=== PATIENT | female | born 1935 | race Caucasian/White ===

== ENCOUNTER 2023-06-30 09:20 | Emergency (ER) | payer MEDICARE, OTHER, SELFPAY ==
[2023-06-30] VITALS (22 sets, daily range): BP systolic 164; BP diastolic 75; PULSE 49–101; RESP 18–34; O2SAT 89–100; BMI 27.8
[2023-06-30 09:35] LABS: Glucometer 107 mg/dL (74-106)
--- NOTE | 2023-06-30 09:35 | ECG_ITS ---
[facility] Test Date: 2023-06-30 Pat Name: LAVONNE VILLATORO Department: Room: - Gender: Female [employer]: : [id number] Requested By: Suhas Arizmendi Order Number: [id number] Reading MD: JUNIOR PRICE Measurements Intervals [place] Rate: 56 P: 10 MO: 164 QRS: 34 QRSD: 82 T: 60 QT: 480 QTc: 471 Interpretive Statements 1100 Sinus rhythm 8304 Long QTc interval 9150 abnormal ECG Compared to ECG 11/01/2020 08:30:32 No significant changes Electronically Signed On 07-01-2023 6:49:38 EST by JUNIOR PRICE
--- NOTE | 2023-06-30 09:35 | ED.WEAKNESS1 ---
HPI - Weakness General Chief complaint: Weakness Stated complaint: DIZZINESS Time Seen by Provider: 06/30/23 09:29 Source: patient Mode of arrival: ambulance Limitations: no limitations History of Present Illness HPI Narrative: 87-year-old female presents for body pains. It started this morning. 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 She is on prednisone for it. She gets body pains like this from time to time and it developed today. It's mostly in her legs but also in her arms. There was no trauma or unusual activity. She hasn't had a fever. Related Data Previous Rx's Medication Instructions Recorded acetaminophen 300 mg-codeine 30 mg 1 tab PO Q6H PRN pain 5 days #20 06/30/23 tablet tabs Allergies Allergy/AdvReac Type Severity Reaction Status Date / Time divalproex sodium Allergy Unknown Verified 06/30/23 09:25 [From Depakote] hydrocodone Allergy Unknown Verified 06/30/23 09:25 phenytoin [From Dilantin] Allergy Unknown Verified 06/30/23 09:25 Review of Systems ROS Narrative A ten point review of systems is negative except as noted above. Exam Narrative Exam Narrative: Nurses note and vital signs reviewed and patient is not hypoxic. General: The patient appears in no apparent respiratory distress. Skin: Warm, dry, no pallor noted. There is no rash noted. Head: Normocephalic, atraumatic Eye: Normal conjunctiva, no drainage Ears, Nose, Mouth, and Throat: oral mucosa is moist. Nares patent. Cardiovascular: Regular Rate and Rhythm Respiratory: Patient is in no distress, no accessory muscle use, lungs are clear to auscultation, no wheezing, rales or rhonchi Back: non-tender GI: cough and nontender Musculoskeletal: arms and legs are examined and there is no erythema or swelling or rash. Neurological: A&O x4, normal speech, tremorous Psychiatric: Cooperative Constitutional Vital Signs, click to edit/add: Last Vital Signs Pulse 66 06/30/23 09:25 Resp 26 H 06/30/23 09:25 BP 164/75 H 06/30/23 09:25 Pulse Ox 100 06/30/23 09:25 O2 Del Method Room Air 06/30/23 09:25 Course Vital Signs Vital signs: Vital Signs Pulse Rate 66 06/30/23 09:25 Respiratory Rate 26 H 06/30/23 09:25 Blood Pressure 164/75 H 06/30/23 09:25 Pulse Oximetry 100 06/30/23 09:25 Oxygen Delivery Method Room Air 06/30/23 09:25 Pulse Rate 66 06/30/23 09:25 Respiratory Rate 26 H 06/30/23 09:25 Blood Pressure 164/75 H 06/30/23 09:25 Pulse Oximetry 100 06/30/23 09:25 Oxygen Delivery Method Room Air 06/30/23 09:25 MDM - Weakness MDM Narrative Medical decision making narrative: the patient's workup is negative. She was given IV morphine and feels much better and is able to be discharged home. She'll follow-up with her PCP. No evidence of rhabdomyolysis or urinary tract infection. Treatment diagnosis and follow-up were discussed with the patient. Differential Diagnosis Differential diagnosis: Likely rhabdomyolysis, dehydration and other (urinary tract infection) Lab Data Attestation: I reviewed the patient's lab results. Labs: Lab Results 06/30/23 06/30/23 06/30/23 Range/Units 09:33 10:16 12:25 WBC 5.5 (4.0-11.0) 10^3/uL RBC 4.22 (4.20-5.40) 10^6/uL Hgb 13.9 (12.0-16.0) g/dL Hct 40.6 (36.0-48.0) % MCV 96.2 (81.0-99.0) fL MCH 32.9 (26.7-34.0) pg MCHC 34.2 (29.9-35.2) g/dL RDW 13.1 (11.0-15.0) % Plt Count 247 (150-450) 10^3/uL MPV 10.8 (9.5-13.5) fL Neut % (Auto) 57.3 (43.0-75.0) % Lymph % (Auto) 32.3 (20.5-60.0) % [place] % (Auto) 8.2 (1.7-12.0) % Eos % (Auto) 1.1 (0.9-7.0) % Baso % (Auto) 0.9 (0.2-2.0) % Neut # (Auto) 3.1 (1.4-6.5) 10^3/uL Lymph # (Auto) 1.8 (1.2-3.8) 10^3/uL [place] # (Auto) 0.5 (0.3-0.8) 10^3/uL Eos # (Auto) 0.1 (0.0-0.7) 10^3/uL Baso # (Auto) 0.1 (0.0-0.1) 10^3/uL Abs Immat Gran (auto) 0.01 (0.00-0.03) 10^3/uL Imm/Tot Granulo (auto) 0.2 (0.0-0.5) % Sodium 143 (136-145) mmol/L Potassium 3.2 L (3.5-5.1) mmol/L Chloride 107 (98-107) mmol/L Carbon Dioxide 24.8 (21.0-32.0) mmol/L Anion Gap 14.4 BUN 20.0 H (7.0-18.0) mg/dL Creatinine 0.88 (0.55-1.02) mg/dL Est GFR ( Amer) >60 (>=60) Est GFR (Non-Af Amer) >60 (>=60) BUN/Creatinine Ratio 22.7 Glucose 99 (74-106) mg/dL Calcium 9.7 (8.5-10.1) mg/dL Total Creatine Kinase 41 (26-192) U/L Urine Color Yellow (YELLOW) Urine Clarity Clear (CLEAR) Urine pH 8.5 (5.0-9.0) Ur Specific [place] 1.015 (1.005-1.025) Urine Protein Negative (NEG/TRACE) mg/dL Urine Glucose (UA) Negative (NEGATIVE) mg/dL Urine Ketones Negative (NEGATIVE) mg/dL Urine Occult Blood Negative (NEGATIVE) Urine Nitrite Negative (NEGATIVE) Urine Bilirubin Negative (NEGATIVE) Urine Urobilinogen 0.2 (0.2-1.0) EU/dL Ur Leukocyte Esterase Negative (NEGATIVE) Urine RBC 0-2 (0-2) #/HPF Urine WBC 0-2 A (NONE SEEN) #/HPF Ur Squamous Epith Cells None seen (NONE/RARE) #/LPF Urine Crystals None seen (None Seen) #/HPF Urine Bacteria None seen (NONE SEEN) #/HPF Urine Casts None seen (NONE SEEN) #/LPF Urine Mucus None seen (NONE SEEN) POC Glucose 107 H (74-106) mg/dL Discharge Plan Discharge Chief Complaint: Weakness Clinical Impression: Myalgia Patient Disposition: Home, Self-Care Time of Disposition Decision: 12:45 Condition: Good Mode of Transportation: Private Vehicle Prescriptions / Home Meds: New acetaminophen-codeine 300-30 mg tablet 1 tab PO Q6H PRN (Reason: pain) 5 Days Qty: 20 0RF Instructions: Musculoskeletal Pain (ED) Stand Alone Forms: Portal Instructions Referrals: Suhas Arizmendi DO [Primary Care Provider] - 1 week
[2023-06-30] MEDS: MORPHINE SULFATE 2 MG/ML SYRINGE IV (09:43)
[2023-06-30 10:30] LABS: Basophils Absolute Auto 0.1 10^3/uL (0.0-0.1); Basophils Percent Auto 0.9 % (0.2-2.0); Eosinophils Absolute Auto 0.1 10^3/uL (0.0-0.7); Eosinophils Percent Auto 1.1 % (0.9-7.0); Hematocrit 40.6 % (36.0-48.0); Hemoglobin 13.9 g/dL (12.0-16.0); Immature Granulocytes Abs Auto 0.01 10^3/uL (0.00-0.03); Immature Granulocytes Pct Auto 0.2 % (0.0-0.5); Lymphocytes Absolute Auto 1.8 10^3/uL (1.2-3.8); Lymphocytes Percent Auto 32.3 % (20.5-60.0); Mean Corpuscular HGB Conc 34.2 g/dL (29.9-35.2); Mean Corpuscular Hemoglobin 32.9 pg (26.7-34.0); Mean Corpuscular Volume 96.2 fL (81.0-99.0); Mean Platelet Volume 10.8 fL (9.5-13.5); Monocytes Absolute Auto 0.5 10^3/uL (0.3-0.8); Monocytes Percent Auto 8.2 % (1.7-12.0); Neutrophils Absolute Auto 3.1 10^3/uL (1.4-6.5); Neutrophils Percent Auto 57.3 % (43.0-75.0); Platelet Count 247 10^3/uL (150-450); Red Blood Count 4.22 10^6/uL (4.20-5.40); Red Cell Distribution Width 13.1 % (11.0-15.0); White Blood Count 5.5 10^3/uL (4.0-11.0)
[2023-06-30 10:51] LABS: Anion Gap 14.4; BUN Creatinine Ratio 22.7; Calcium 9.7 mg/dL (8.5-10.1); Carbon Dioxide 24.8 mmol/L (21.0-32.0); Chloride 107 mmol/L (98-107); Estimated GFR (African America >60 (>=60); Estimated GFR (Non-African Ame >60 (>=60); Glucose 99 mg/dL (74-106); Potassium 3.2 mmol/L (3.5-5.1); Sodium 143 mmol/L (136-145)
[2023-06-30 10:55] LABS: Creatine Kinase 41 U/L (26-192)
[2023-06-30 12:33] LABS: Bilirubin Urine NEGATIVE (NEGATIVE); Blood Urine NEGATIVE (NEGATIVE); Clarity Urine CLEAR (CLEAR); Color Urine YELLOW (YELLOW); Glucose Urine UA NEGATIVE (NEGATIVE); Ketones Urine NEGATIVE (NEGATIVE); Leukocyte Esterase Urine NEGATIVE (NEGATIVE); Nitrite Urine NEGATIVE (NEGATIVE); Protein Urine NEGATIVE (NEG/TRACE); Specific Gravity Urine 1.015 (1.005-1.025); Urobilinogen Urine 0.2 EU/dL (0.2-1.0); pH Urine 8.5 (5.0-9.0)
[2023-06-30 12:43] LABS: Bacteria Urine NONE SEEN #/HPF (NONE SEEN); Cast Seen? NONE SEEN #/LPF (NONE SEEN); Crystals Seen? None Seen #/HPF (None Seen); Mucus Urine NONE SEEN (NONE SEEN); RBC Urine 0-2 #/HPF (0-2); Squamous Epithelial Cell Urine NONE SEEN #/LPF (NONE/RARE); WBC Urine 0-2 #/HPF (NONE SEEN)
== END 2023-06-30 13:39 | disposition home or self-care (01) ==
PROVIDERS: Emergency Provider Emergency Medicine; PCP Family Medicine
DX: M79.10 Myalgia, unspecified site (principal)
CPT/HCPCS: 36415; 36416; 80048; 81001; 82550; 82948; 85025; 93005; 96374; 99284; J2270

== ENCOUNTER 2023-08-25 12:21 | Outpatient (OUT) | payer MEDICARE, OTHER, SELFPAY ==
--- NOTE | 2023-08-25 14:05 | P.CN_ITS ---
Consult Note: HPI Data of Consult Patient: new to practice Consult date: 08/25/23 Requesting Physician: Gloria Weston MD Primary Care Provider: Suhas Arizmendi DO Consult Narrative Reason for consult: neck, bilateral shoulder, low back pain Narrative: 88yof who presents for evaluation. longstanding history of neck, bilateral shoulder, low back, bilateral hip pain. diagnosed with pmr, has been on daily steroids for quite some time. states that this does help. also uses tramadol, which does not help much. no recent imaging. continues in provider directed home exercise course >6 weeks, without benefit. denies adverse med side effects. cc:: CC: Gloria Weston MD Review of Systems ROS Status of ROS 10 or more systems reviewed and unremark able except as noted in history and below Meds Home Medications and Allergies Home Medications Medication Instructions Recorded Confirmed Type acetaminophen 300 mg-codeine 30 mg 1 tab PO Q6H PRN pain 5 days #20 06/30/23 Rx tablet tabs hydrocodone 5 mg-acetaminophen 325 1 tab PO TID PRN pain #90 tabs 08/25/23 Rx mg tablet Allergies Allergy/AdvReac Type Severity Reaction Status Date / Time divalproex sodium Allergy Unknown Verified 06/30/23 09:25 [From Depakote] hydrocodone Allergy Unknown Verified 06/30/23 09:25 phenytoin [From Dilantin] Allergy Unknown Verified 06/30/23 09:25 Exam Narrative Exam Narrative: Psych-alert and oriented x 3. Attentive and appropriate, constitutionally normal, displays normal mood and affect per situation.? There are no obvious deficits in memory, reasoning, or intellect.? Skin-no obvious rashes, bruising, erythema noted to the patient's area of pain. Extremities- extremities are warm with minimal edema and palpable pulses. Lumbar-no significant tenderness to palpation noted in the lumbar spine and paraspinal musculature.? Pain is elicited with extension, and lateral rotation of the lumbar spine. Range of motion is slightly diminished with these motions due to pain. Facet loading maneuvers are positive bilaterally and do appear to be concordant with the patient's normal complaints of pain.? Coordination remains intact.? Gait remains non-antalgic. Assessment and Plan Assessment and Plan (1) Cervicalgia: (2) Lumbar spondylosis: Plan 88yof who presents for evaluation. failed conservative measures, as noted. would like to start with xr of cervical and lumbar spine, as well as bilateral shoulder and hips. she is in agreement. medications reviewed. pdmp reviewed. will trial norco 5mg tid prn. uds obtained. follow up after imaging.
== END 2023-08-25 12:22 | disposition home or self-care (01) ==
PROVIDERS: PCP Family Medicine; Visit Provider Anesthesiology
DX: M54.2 Cervicalgia (principal); M47.816 Spondylosis without myelopathy or radiculopathy, lumbar region
CPT/HCPCS: G0463

== ENCOUNTER 2023-08-29 11:12 | Outpatient (OUT) | payer MEDICARE, OTHER, SELFPAY ==
--- OUTSIDE RECORDS SUMMARY | 2023-08-29 11:19 | XMS_ITS | CCD ---
Author Organization [facility] Care Team Providers Care Principal Technical Architect Name Role Phone Suhas Garrett Unavailable Suhas Garrett Unavailable Unavailable Unavailable MAYO CARBAJAL Consulting Unavailable UGO, DR BAIRD Primary Care Unavailable WALT VELIZ Attending Unavailable WALT VELIZ Admitting Unavailable Ugo, Dr. Suhas Liang Primary Care Unavaila ble Wolf, Dr. Shy Agosto Referring Radha vailable Wolf, Dr. Shy Agosto Attending Radha vailable Wolf, Dr. Shy Agosto Attending Radha vailable Kunadan, Dr. Suhas Liang Primary Care Unavaila ble Wolf, Dr. Shy Agosto Referring Radha vailable Ugo, Dr. Suhas Liang Primary Care Unavaila ble WOLFSHY MEDEIROS Attending Unavail able Suhas Garrett DO Primary Care Provider SHY WOLF Attending Unavailable SUHAS GARRETT Primary Care Unavailable Suhas Garrett Primary Care Unavailable Suhas Garrett Attending Unavailable Suhas Garrett Admitting Unavailable Suhas Garrett Primary Care Unavailable Suhas Garrett Attending Unavailable Suhas Garrett Admitting Unavailable Trista FRIEDMAN, Gloria Gautam Attending Unavailable Allergies Allergy Classification Reported Allergen(s) Allergy Type Date of Onset Reaction(s) Facility (20 sources) Alendronate; Translations: [Fosamax] Drug Allergy 3 Unknown, Other Hospitals 3 Repository (20 sources) Amoxicillin; Translations: [amoxicillin] Drug Allergy 9 [facility] Other (20 sources) Phenytoin; Translations: [Dilantin CAPS] Drug Allergy 3 Rash [facility] Other (20 sources) Valproate; Translations: [Depakote ER TB24] Drug Allergy Unknown [facility] [employer] Other (1 source) Alendronate Drug Allergy [facility] Repository (1 source) Amoxicillin Drug Allergy [facility] Repository (1 source) Phenytoin Drug Allergy [facility] Repository (1 source) Valproate Drug Allergy [facility] Repository (20 sources) Acetaminophen / HYDROcodone Drug Allergy elevated liver enzymes [facility] [employer] Other (1 source) Alendronate Drug Allergy 3 [facility] (2 sources) HYDROcodone; Translations: [HYDROCODONE] Drug Allergy 4 [facility] Work Phone: (2 sources) Valproate; Translations: [VALPROIC ACID] Drug Allergy 3 [facility] Work Phone: (1 source) Acetaminophen Drug Allergy 4 [facility] Repository (1 source) Alendronate Drug Allergy 4 [facility] Repository (1 source) Amoxicillin Drug Allergy 4 [facility] Repository (1 source) HYDROcodone Drug Allergy 4 [facility] Repository (1 source) Phenytoin Drug Allergy 4 [facility] Repository (1 source) Valproate Drug Allergy 4 [facility] Repository Medications Current Medications Medication Drug Class(es) Dates Sig (Normalized) Sig (Original) acetaminophen 325 mg / HYDROcodone bitartrate 5 mg oral tablet (3 sources) Opioid Agonist take 1 tablet by mouth every six hours HYDROcodone-Acet aminophen 5-325 MG 1 tablet as needed Orally every 6 hrs Active amLODIPine 10 mg oral tablet (20 sources) Dihydropyridine Calcium Channel Awa Start: 06-03-2017 take 1 tablet by mouth every twenty-four hours Norvasc 10 MG 1 tablet Orally Once a day May, Active Start: 06-03-2017 take 1 tablet by barb th every twenty-four hours Norvasc 5 MG 1 tablet Orally Once a day for 90 day(s) May, Active aspirin 81 mg chewable tablet (20 sources) Platelet Aggregation Inhibitor, Nonsteroidal Anti-inflammatory Drug take 1 tablet by mouth every week Aspirin 81 MG 1 tablet Orally 3 days per week Active aspirin 81 mg EC tablet Take 1 tablet (81 mg) by mouth. 0 Active calcium carbonate 1500 mg oral tablet (8 sources) take 1 tablet by barb th once daily calcium carbonate 600 mg calcium (1,500 mg) tablet Take 1 tablet (1,500 mg) by mouth once daily. 0 Active Calcium 600 MG T ABS TAKE 1 TABLET DAILY. Quantity: 0 Refills: 0 Ordered: 13-Dec-2021 DO Active calcium carbonate 1500 mg / cholecalciferol 200 unt oral tablet (20 sources) Vitamin D take 1 tablet by barb th once daily at mealtime Calcium + D 600-200 MG-UNIT 1 tablet with food Orally Once a day for 30 day(s) Active take 1 tablet by barb th every twenty-four hours Calcium + D 600-200 MG-UNIT 1 tablet with food Orally Once a day for 30 day(s) Active carvedilol 6.25 mg oral tablet (20 sources) alpha-Adrenergic Awa, beta-Adrenergic Awa Start: 06-25-2017 take 1 tablet by mouth every twelve hours Carvedilol 6.25 MG 1 tablet with food Orally Twice a day Jun, Active Centrum (20 sources) Centrum as directed Orally Active Fish Oils (1 source) take 1 capsule by mouth once daily omega-3 (Fish Oil) 60-90-500 mg capsule Take 1 capsule (500 mg) by mouth once daily. 0 Active hydroCHLOROthiazide 12.5 mg / losartan potassium 100 mg oral tablet (20 sources) Thiazide Diuretic, Angiotensin 2 Receptor Awa Start: 04-25-2017 take 1 tablet by mouth every twenty-four hours Losartan Potassium-HCTZ 100-12.5 MG 1 tablet Orally Once a day Apr, Active ibuprofen 600 mg oral tablet (20 sources) Nonsteroidal Anti-inflammatory Drug Start: 01-09-2022 take 1 tablet by mouth twice daily at mealtime as needed Ibuprofen 600 MG 1 tablet with food or milk as needed Orally Twice a day as needed with food Jan, Active Start: 01-09-2022 take 1 tablet by barb th three times daily at mealtime as needed Ibuprofen 600 MG 1 tablet with food or milk as needed Orally TID PRN with food Jan, Not-Taking levothyroxine sodium 0.1 mg oral tablet (20 sources) l-Thyroxine Start: 06-25-2021 take 1 tablet by mouth once daily levothyroxine (Synthroid, Levoxyl) 100 mcg tablet Take 1 tablet (100 mcg) by mouth once daily. 0 06/25/2021 Active Synthroid 100 MC G 1 tablet every morning on an empty stomach Orally Once a day for 90 day(s) Active multivit-min/ferrous fumarat e (MULTI VITAMIN ORAL) (1 source) take 1 tablet by mouth once daily multivit-min/ferrous fumarate (MULTI VITAMIN ORAL) Take 1 tablet by mouth once daily. 0 Active [place] 3 1000 MG (20 sources) take 1 capsule by mouth once daily [place] 3 1000 MG 1 capsule with a meal Orally Once a day Active predniSONE 10 mg oral tablet (20 sources) Start: take 2 tablets by mouth once daily predniSONE 10 MG 2 tablets x 7 days, 1 tablet x 7 days, then 1/2 tablet or 5mg daily thereafter Orally as directed Jun, Active Start: 04-23-2023 take 1 tablet by barb th every twenty-four hours predniSONE 20 MG 1 tablet Orally Once a day for 10 days Apr, Active Start: 12-06-2022 take 1 tablet by barb th every other day predniSONE 2.5 MG 1 tablet Orally alternating every other day with 5mg 30 Nov, 2022 Active Start: 04-10-2022 take 1 tablet by barb th every twenty-four hours predniSONE 2.5 MG 1 tablet Orally Once a day Apr, Active Start: 04-10-2022 take 1 tablet by barb th every twenty-four hours predniSONE 10 MG 1 tablet Orally Once a day for 90 days Apr, Active Start: 04-10-2022 take 1 tablet by barb th every twenty-four hours predniSONE 20 MG 1 tablet Orally Once a day for 30 day(s) Apr, Active Start: 02-22-2022 predniSONE 20 MG 1 tablet with food or milk Orally 1 tab twice a day x 5 days , 1 tab every day x 5 days for 10 days Feb, Active Start: 08-05-2022 take 1 tablet by barb th at mealtime, then take 1 tablet by mouth twice daily, then take 1 tablet by mouth once daily predniSONE 20 MG 1 tablet with food or milk Orally 1 tab twice a day x 5 days , 1 tab once a day X 5 days Jan, Active Start: 11-02-2021 take 1 tablet by barb th every other day predniSONE 5 MG 1 tablet Orally alternating every other day with 2.5mg Apr, Active Start: 02-22-2020 predniSONE (De ltasone) 5 mg tablet Take 1 tablet (5 mg) by mouth once daily. Alternating 2.5 tab 0 11/02/2021 Active Start: 02-22-2020 take 1 tablet by barb th every twenty-four hours predniSONE 2.5 MG 1 tablet Orally Once a day Feb, Active Start: 02-22-2020 take 1.5 tablets by mouth every twenty-four hours predniSONE 5 MG 1.5 tablets Orally Once a day Feb, Active traMADol hydrochloride 50 mg oral tablet (5 sources) Opioid Agonist Start: 07-05-2023 take 1 tablet by mouth every eight hours traMADol HCl 50 MG 1 tablet as needed Orally tid Jun, Active Start: 07-05-2023 take 1 tablet by barb every twenty-four hours traMADol HCl 50 MG 1 tablet as needed Orally Once a day Jun, Active Tylenol Arthritis Pain 650 M G (20 sources) Tylenol Arthriti s Pain 650 MG as directed Orally Not-Taking Tylenol Arthriti s Pain 650 MG as directed Orally Active Completed/Discontinued Medications Medication Drug Class(es) Dates Sig (Normalized) Sig (Original) docosahexaenoic acid 120 mg / eicosapentaenoic acid 180 mg oral capsule (3 sources) take 1 capsule by mouth once daily [place]-3 Fish Oil 1000 MG Oral Capsule TAKE 1 CAPSULES BY MOUTH DAILY Quantity: 360 Refills: 0 Ordered: 24-Dec-2022 DO Active lidocaine 0.05 mg/mg medicated patch (9 sources) Antiarrhythmic, Amide Local Anesthetic Lidocaine 5 % 1 patch remove after 12 hours Externally Once a day Not-Taking melatonin 5 mg oral tablet (20 sources) Start: 10-01-2021 take 1 tablet by mouth every twenty-four hours Melatonin 5 MG 1 tablet in the evening Orally Once a day Sep, Not-Taking/PRN methylPREDNISolone (20 sources) Corticosteroid Start: 01-10-2014 SOLU-MEDROL 41 - 125 mg Jan, 125 mg Multi Vitamin Oral Tablet (7 sources) take 1 tablet by mouth once daily Multi Vitamin Oral Tablet TAKE 1 TABLET DAILY. Quantity: 0 Refills: 0 Ordered: 13-Dec-2021 DO Active [place] 3 500 CAPS (4 sources) [place] 3 500 CAPS TAKE 1 CAPSULE Daily Quantity: 0 Refills: 0 Ordered: 13-Dec-2021 DO Active traZODone hydrochloride 50 mg oral tablet (16 sources) Serotonin Reuptake Inhibitor Start: 07-22-2022 take 1 tablet by mouth every twenty-four hours traZODone HCl 50 MG 1 tablet at bedtime as needed Orally Once a day prn Jul, Not-Taking/PRN Problems Active Problems Problem Classification Problem Date Documented Date Episodic/Chronic Abdominal pain (20 sources) Generalized abdominal pain; Translations: [Generalized abdominal pain] Onset: 02-22-2022 Resolved: 02-22-2022 Episodic Administrative/social admission (20 sources) Advance directive discussed with patient; Translations: [Other specified counseling] Episodic Coronary atherosclerosis and other heart disease (20 sources) Coronary arteriosclerosis; 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 [place] coronary artery without angina pectoris] Chronic Disorders of lipid metabolism (20 sources) Hyperlipidemia; Translations: [Hyperlipidemia, unspecified] Onset: 04-26-2021 Resolved: 04-26-2021 Chronic Essential hypertension (20 sources) Hypertensive disorder; Translations: [Essential (primary) hypertension] Onset: 09-10-2021 Resolved: 02-14-2022 Chronic Heart valve disorders (17 sources) Aortic valve stenosis; Translations: [Aortic valve disorders] Onset: 02-26-2023 Chronic Heart valve disorders (20 sources) Heart murmur; Translations: [Cardiac murmur, unspecified] Onset: 10-01-2021 Resolved: 10-01-2021 Episodic Osteoporosis (1 source) Osteoporosis; Translations: [Age-related osteoporosis without current pathological fracture] Chronic Other aftercare (1 source) Other care home (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; Translations: [OTH LONGTERM CURRENT DRUG THERAPY] Onset: 02-22-2022 Episodic Other bone disease and musculoskeletal deformities (20 sources) Pain of left shoulder blade; Translations: [Other specified disorders of bone, shoulder] Episodic Other bone disease and musculoskeletal deformities (20 sources) Osteopenia; Translations: [Other specified disorders of bone density and structure, multiple sites] Episodic Other circulatory disease (20 sources) Cardiovascular symptoms; Translations: [Other specified symptoms and signs involving the circulatory and respiratory systems] Episodic Other circulatory disease (15 sources) Carotid bruit; Translations: [Other symptoms involving cardiovascular system] Onset: 06-04-2023 Resolved: 12-24-2022 06-04-2023 Episodic Other connective tissue disease (20 sources) Polymyalgia rheumatica; Translations: [Polymyalgia rheumatica] Onset: 06-04-2023 06-04-2023 Chronic Other connective tissue disease (20 sources) Polymyalgia rheumatica Onset: 04-26-2021 Resolved: 02-22-2022 Chronic Other connective tissue disease (1 source) Other muscle spasm; Translations: [OTHER MUSCLE SPASM] Onset: 02-22-2022 Episodic Other liver diseases (20 sources) Disease of liver; Translations: [Liver disease, unspecified] Chronic Other lower respiratory disease (20 sources) Radiologic increased density of lung; Translations: [Other disorders of lung] Episodic Other non-epithelial cancer of skin (20 sources) Basal cell carcinoma of skin; Translations: [Basal cell carcinoma of skin, unspecified] Episodic Other non-traumatic joint disorders (5 sources) Pain in left shoulder; Translations: [PAIN IN LEFT SHOULDER] Onset: 02-20-2022 Resolved: 02-22-2022 Episodic Other non-traumatic joint disorders (20 sources) Shoulder pain; Translations: [Pain in left shoulder] Episodic Other nutritional; endocrine; and metabolic disorders (7 sources) Overweight in adulthood with body mass index of 25 or more but less than 30; Translations: [Overweight] Episodic Other screening for suspected conditions (not mental disorders or infectious disease) (20 sources) Other specified abnormal findings of blood chemistry; Translations: [Elevated liver function tests] Onset: 02-26-2022 Resolved: 02-26-2022 Episodic Residual codes; unclassified (20 sources) Insomnia; Translations: [Insomnia, unspecified] Episodic Residual codes; unclassified (20 sources) Family history of malignant neoplasm of gastrointestinal tract; Translations: [Family history of malignant neoplasm of digestive organs] Episodic Residual codes; unclassified (20 sources) Difficulty sleeping ; Translations: [Sleep disorder, unspecified] Episodic Residual codes; unclassified (3 sources) Insomnia, unspecified Onset: 10-01-2021 Resolved: 10-01-2021 Episodic Residual codes; unclassified (2 sources) Never smoked any substance; Translations: [Other specified health status] Onset: 06-19-2023 06-19-2023 Episodic Residual codes; unclassified (2 sources) Other specified health status; Translations: [Other specified health status] Onset: 06-19-2023 Episodic Spondylosis; intervertebral disc disorders; other back problems (13 sources) Low back pain; Translations: [Lumbar back pain] Episodic Sprains and strains (20 sources) Strain of muscle and/or tendon of lower leg; Translations: [Strain of unspecified muscle and tendon at ankle and foot level, left foot, subsequent encounter] Episodic Thyroid disorders (20 sources) Hypothyroidism; Translations: [Hypothyroidism, unspecified] Onset: 04-26-2021 Resolved: 04-26-2021 Chronic Unclassified (1 source) Thyrotoxicosis, unspecified without thyrotoxic crisis or storm; Translations: [Thyrotoxicosis, unspecified without thyrotoxic crisis or storm] Onset: 07-08-2023 Past or Other Problems Problem Classification Problem Date Documented Da te Episodic/Chronic Conditions associated with dizziness or vertigo (1 source) Dizziness and giddiness Onset: 02-14-2022 Resolved: 02-14-2022 Episodic Other acquired deformities (1 source) Spondylolisthesis, lumbar region Onset: 02-14-2022 Resolved: 02-14-2022 Episodic Other bone disease and musculoskeletal deformities (1 source) Other specified disorders of bone density and structure, unspecified site Onset: 02-14-2022 Resolved: 02-14-2022 Episodic Other bone disease and musculoskeletal deformities (1 source) Other specified disorders of bone, shoulder Onset: 02-22-2022 Resolved: 02-22-2022 Episodic Other bone disease and musculoskeletal deformities (1 source) Other specified disorders of bone density and structure, multiple sites Onset: 02-22-2022 Resolved: 02-22-2022 Episodic Other skin disorders (1 source) Localized swelling, mass and lump, head Onset: 04-26-2021 Resolved: 04-26-2021 Episodic Residual codes; unclassified (1 source) Sleep disorder, unspecified Onset: 08-02-2021 Resolved: 08-02-2021 Episodic Residual codes; unclassified (1 source) Asymptomatic menopausal state Onset: 02-14-2022 Resolved: 02-14-2022 Episodic Unclassified (7 sources) Never smoked tobacco; Translations: [Never smoker] Unclassified (1 source) Cough R05.9 Onset: 01-11-2022 Resolved: 01-11-2022 Unclassified (3 sources) Lumbar back pain M54.50 Onset: 02-14-2022 Resolved: 02-22-2022 Unclassified (1 source) History of COVID-19 Z86.16 Onset: 02-14-2022 Resolved: 02-14-2022 Unclassified (10 sources) Lumbar back pain; Translations: [Lumbar back pain] Unclassified (1 source) Vaccine counseling Z71.85 Unclassified (1 source) Onset: 06-19-2023 06-19-2023 Viral infection (20 sources) Disease caused by 2019-nCoV; Translations: [COVID-19] Onset: 01-11-2022 Resolved: 01-11-2022 Results Test Name Value Interpretation Reference Range Facility Complete Blood Count Auto Di ffon 07-08-2023 Basophils (Bld) [#/Vol] [id number] 10*3/uL Normal 0.0-0.2 10*3/uL [employer] Other Basophils/100 WBC (Bld) 0.900 % . % [employer] Other Eosinophils (Bld) [#/Vol] [id number] 10*3/uL Normal 0.0-0.45 10*3/uL [employer] Other Eosinophils/100 WBC (Bld) 1.100 % . % [facility] Other Erythrocyte distribution width (RBC) [Ratio] 14.000 % Normal 11.9-15.3 % [facility] Other Hematocrit (Bld) [Volume fraction] 37.700 % Normal 34.0-46.4 % [facility] Other Hemoglobin (Bld) [Mass/Vol] 12.330219 g/dL Normal 11.8-15.4 g/dL [facility] Other Lymphocytes (Bld) [#/Vol] 2.047099012 10*3/uL Normal 1.00-4.8 10*3/uL [facility] Other Lymphocytes/100 WBC (Bld) 35.100 % . % [facility] Other MCH (RBC) [Entitic mass] 33.3000 pg Normal 24.7-34.3 pg [facility] Other MCV (RBC) [Entitic vol] 99.7000 fL Normal 80-100 fL [facility] Other Monocytes (Bld) [#/Vol] [id number] 10*3/uL Normal 0.0-0.8 10*3/uL [facility] Other Monocytes/100 WBC (Bld) 10.000 % . % [employer] Other Neutrophils (Bld) [#/Vol] 3.233513852 10*3/uL Normal 1.8-7.7 10*3/uL [facility] Other Neutrophils/100 WBC (Bld) 52.900 % . % [facility] Other Platelet mean volume (Bld) [Entitic vol] 9.9000 fL Normal 6.3-10.7 fL [employer] Other WBC (Bld) [#/Vol] [id number] 10*3/uL Normal 3.8 -11.6 10*3/uL [facility] Other Complete Blood Count Auto Diff 7.1 10*3/uL Normal 3.8-11.6 10*3/uL [facility] Other Complete Blood Count Auto Diff 33.4 g/dL Normal 32.0-35.0 g/dL [facility] Other Complete Blood Count Auto Diff 0.1 /100{WBC} Normal 0-0.5 /100{WBC} [facility] Other Basophils (Bld) [#/Vol] 0.1 10*3/uL Normal 0.0-0.2 [facility] Comment on above: Order Comment: Reaso n for Exam Hyperthyroidism Result Comment: PERF ORMED BY: [place] [id number] PATHOLOGIST BRAND MGR JODY SOLANO M.D. Performed By: #### M G, CBC, CRP, T4F, TSH3, ESR, URIC, CMP #### [facility] [address] [place] [address] #### AUGUST, ASO, RA #### [facility] , Basophils/100 WBC (Bld) 0.9 % Normal . [facility] Comment on above: Order Comment: Reaso n for Exam Hyperthyroidism Performed By: #### M G, CBC, CRP, T4F, TSH3, ESR, URIC, CMP #### [facility] [address] [place] [address] #### AUGUST, ASO, RA #### [facility] , Eosinophils (Bld) [#/Vol] 0.1 10*3/uL Normal 0.0-0.45 [facility] Comment on above: Order Comment: Reaso n for Exam Hyperthyroidism Performed By: #### M G, CBC, CRP, T4F, TSH3, ESR, URIC, CMP #### [facility] [address] [place] [address] [place] #### AUGUST, ASO, RA #### [facility] , Eosinophils/100 WBC (Bld) 1.1 % Normal . [facility] Comment on above: Order Comment: Reaso n for Exam Hyperthyroidism Performed By: #### M G, CBC, CRP, T4F, TSH3, ESR, URIC, CMP #### [facility] [address] [place] [address] [place] #### AUGUST, ASO, RA #### [facility] , Erythrocyte distribution width (RBC) [Ratio] 14.0 % Normal 11.9-15.3 [facility] Comment on above: Order Comment: Reaso n for Exam Hyperthyroidism Performed By: #### M G, CBC, CRP, T4F, TSH3, ESR, URIC, CMP #### [address] #### AUGUST, ASO, RA #### [facility] , Hematocrit (Bld) [Volume fraction] 37.7 % Normal 34.0-46.4 [facility] Comment on above: Order Comment: Reaso n for Exam Hyperthyroidism Performed By: #### M G, CBC, CRP, T4F, TSH3, ESR, URIC, CMP #### [address] #### AUGUST, ASO, RA #### [facility] , Hemoglobin (Bld) [Mass/Vol] 12.6 g/dL Normal 11.8-15.4 [facility] Comment on above: Order Comment: Reaso n for Exam Hyperthyroidism Performed By: #### M G, CBC, CRP, T4F, TSH3, ESR, URIC, CMP #### [address] #### AUGUST, ASO, RA #### [facility] , Lymphocytes (Bld) [#/Vol] 2.5 10*3/uL Normal 1.00-4.8 [facility] Comment on above: Order Comment: Reaso n for Exam Hyperthyroidism Performed By: #### M G, CBC, CRP, T4F, TSH3, ESR, URIC, CMP #### [place] [address] [place] #### AUGUST, ASO, RA #### [facility] , Lymphocytes/100 WBC (Bld) 35.1 % Normal . [facility] Comment on above: Order Comment: Reaso n for Exam Hyperthyroidism Performed By: #### M G, CBC, CRP, T4F, TSH3, ESR, URIC, CMP #### [address] [address] [place] #### AUGUST, ASO, RA #### [facility] , MCH (RBC) [Entitic mass] 33.3 pg Normal 24.7-34.3 [facility] Comment on above: Order Comment: Reaso n for Exam Hyperthyroidism Performed By: #### M G, CBC, CRP, T4F, TSH3, ESR, URIC, CMP #### [facility] [address] [place] [address] #### AUGUST, ASO, RA #### [facility] , MCV (RBC) [Entitic vol] 99.7 fL Normal 80-100 [facility] Comment on above: Order Comment: Reaso n for Exam Hyperthyroidism Performed By: #### M G, CBC, CRP, T4F, TSH3, ESR, URIC, CMP #### [facility] [address] [place] [address] #### AUGUST, ASO, RA #### [facility] , Mean Corpuscular HGB Conc 33.4 g/dL Normal 32.0-35.0 [facility] Comment on above: Order Comment: Reaso n for Exam Hyperthyroidism Performed By: #### M G, CBC, CRP, T4F, TSH3, ESR, URIC, CMP #### [facility] [address] [place] [address] #### AUGUST, ASO, RA #### [facility] , Monocytes (Bld) [#/Vol] 0.7 10*3/uL Normal 0.0-0.8 [facility] Comment on above: Order Comment: Reaso n for Exam Hyperthyroidism Performed By: #### M G, CBC, CRP, T4F, TSH3, ESR, URIC, CMP #### [facility] [address] [place] [address] [place] #### AUGUST, ASO, RA #### [facility] , Monocytes/100 WBC (Bld) 10.0 % Normal . [facility] Comment on above: Order Comment: Reaso n for Exam Hyperthyroidism Performed By: #### M G, CBC, CRP, T4F, TSH3, ESR, URIC, CMP #### [facility] [address] [place] [address] [place] #### AUGUST, ASO, RA #### [facility] , Neutrophils (Bld) [#/Vol] 3.7 10*3/uL Normal 1.8-7.7 [facility] Comment on above: Order Comment: Reaso n for Exam Hyperthyroidism Performed By: #### M G, CBC, CRP, T4F, TSH3, ESR, URIC, CMP #### [facility] [address] [place] [address] #### AUGUST, ASO, RA #### [facility] , Neutrophils/100 WBC (Bld) 52.9 % Normal . [facility] Comment on above: Order Comment: Reaso n for Exam Hyperthyroidism Performed By: #### M G, CBC, CRP, T4F, TSH3, ESR, URIC, CMP #### [facility] [address] [place] [address] #### AUGUST, ASO, RA #### [facility] , NRBC% 0.1 /100{WBC} Normal 0-0.5 [facility] Comment on above: Order Comment: Reaso n for Exam Hyperthyroidism Performed By: #### M G, CBC, CRP, T4F, TSH3, ESR, URIC, CMP #### [facility] [address] [place] [address] [place] #### AUGUST, ASO, RA #### [facility] , Platelet mean volume (Bld) [Entitic vol] 9.9 fL Normal 6.3-10.7 [facility] Comment on above: Order Comment: Reaso n for Exam Hyperthyroidism Performed By: #### M G, CBC, CRP, T4F, TSH3, ESR, URIC, CMP #### [facility] [address] [place] [address] [place] #### AUGUST, ASO, RA #### [facility] , Platelets (Bld) [#/Vol] 224 10*3/uL Normal 150-450 [facility] Other Comment on above: Order Comment: Reaso n for Exam Hyperthyroidism Performed By: #### M G, CBC, CRP, T4F, TSH3, ESR, URIC, CMP #### [facility] [address] [place] [address] [place] #### AUGUST, ASO, RA #### [facility] , RBC (Bld) [#/Vol] 3.78 10*6/uL Normal 3.60-5.00 [employer] Other Comment on above: Order Comment: Reaso n for Exam Hyperthyroidism Performed By: #### M G, CBC, CRP, T4F, TSH3, ESR, URIC, CMP #### [place] [address] [place] #### AUGUST, ASO, RA #### [facility] , WBC (Bld) [#/Vol] 7.1 10*3/uL Normal 3.8-11.6 [facility] Comment on above: Order Comment: Reaso n for Exam Hyperthyroidism Performed By: #### M G, CBC, CRP, T4F, TSH3, ESR, URIC, CMP #### [facility] [address] [place] [address] [place] #### AUGUST, ASO, RA #### [facility] , Comprehensive Metabolic Pane nory 07-08-2023 Albumin [Mass/Vol] 3.146681 g/dL Normal 3.5-5.7 g/dL N [employer] Other Bilirubin [Mass/Vol] 0.5706925 mg/dL Normal 0.3- 1.0 mg/dL [employer] Other Calcium [Mass/Vol] 9.2656128 mg/dL Normal 8.6-10 .3 mg/dL [employer] Other CO2 [Moles/Vol] 30.12612132 mmol/L Normal 21.0-3 1.0 mmol/L [employer] Other Creatinine [Mass/Vol] 0.78842109 mg/dL Normal 0. 60-1.20 mg/dL [employer] Other Potassium [Moles/Vol] 3.43620180 mmol/L Normal 3 .5-5.1 mmol/L [employer] Other Protein [Mass/Vol] 6.052400 g/dL Low 6.4-8.9 g/dL N [employer] Other Comprehensive Metabolic Panel 2.2 g/dL [employer] Other Albumin [Mass/Vol] 3.8 g/dL Normal 3.5-5.7 [facility] Comment on above: Order Comment: Reaso n for Exam Hyperthyroidism Performed By: #### M G, CBC, CRP, T4F, TSH3, ESR, URIC, CMP #### [facility] [address] [place] [address] [place] #### AUGUST, ASO, RA #### [facility] , Albumin/Globulin [Mass ratio] 1.7 {ratio} Normal [employer] Other Comment on above: Order Comment: Reaso n for Exam Hyperthyroidism Performed By: #### M G, CBC, CRP, T4F, TSH3, ESR, URIC, CMP #### [facility] [address] [place] [address] [place] #### AUGUST, ASO, RA #### [facility] , ALP [Catalytic activity/Vol] 140 U/L High 34-104 [employer] Other Comment on above: Order Comment: Reaso n for Exam Hyperthyroidism Performed By: #### M G, CBC, CRP, T4F, TSH3, ESR, URIC, CMP #### [facility] [address] [place] [address] [place] #### AUGUST, ASO, RA #### [facility] , ALT [Catalytic activity/Vol] 71 U/L High 7-52 [facility] [employer] Other Comment on above: Order Comment: Reaso n for Exam Hyperthyroidism Performed By: #### M G, CBC, CRP, T4F, TSH3, ESR, URIC, CMP #### [facility] [address] [place] [address] [place] #### AUGUST, ASO, RA #### [facility] , Anion gap [Moles/Vol] 9.0 mmol/L Normal 6.0-15.0 [facility] Comment on above: Order Comment: Reaso n for Exam Hyperthyroidism Performed By: #### M G, CBC, CRP, T4F, TSH3, ESR, URIC, CMP #### [facility] [address] [place] [address] #### AUGUST, ASO, RA #### [facility] , AST [Catalytic activity/Vol] 20 U/L Normal 13-39 [facility] [employer] Other Comment on above: Order Comment: Reaso n for Exam Hyperthyroidism Performed By: #### M G, CBC, CRP, T4F, TSH3, ESR, URIC, CMP #### [facility] [address] [place] [address] #### AUGUST, ASO, RA #### [facility] , Bilirubin [Mass/Vol] 0.7 mg/dL Normal 0.3-1.0 [facility] Comment on above: Order Comment: Reaso n for Exam Hyperthyroidism Performed By: #### M G, CBC, CRP, T4F, TSH3, ESR, URIC, CMP #### [facility] [address] [place] [address] [place] #### AUGUST, ASO, RA #### [facility] , Calcium [Mass/Vol] 9.4 mg/dL Normal 8.6-10.3 [facility] Comment on above: Order Comment: Reaso n for Exam Hyperthyroidism Performed By: #### M G, CBC, CRP, T4F, TSH3, ESR, URIC, CMP #### [facility] [address] [place] [address] [place] #### AUGUST, ASO, RA #### [facility] , Chloride [Moles/Vol] 107 mmol/L Normal 98-107 [facility] [employer] Other Comment on above: Order Comment: Reaso n for Exam Hyperthyroidism Performed By: #### M G, CBC, CRP, T4F, TSH3, ESR, URIC, CMP #### [facility] [address] [place] [address] [place] #### AUGUST, ASO, RA #### [facility] , CO2 [Moles/Vol] 30.7 mmol/L Normal 21.0-31.0 [facility] Comment on above: Order Comment: Reaso n for Exam Hyperthyroidism Performed By: #### M G, CBC, CRP, T4F, TSH3, ESR, URIC, CMP #### [facility] [address] [place] [address] [place] #### AUGUST, ASO, RA #### [facility] , Creatinine [Mass/Vol] 0.76 mg/dL Normal 0.60-1.20 [facility] Comment on above: Order Comment: Reaso n for Exam Hyperthyroidism Performed By: #### M G, CBC, CRP, T4F, TSH3, ESR, URIC, CMP #### [facility] [address] [place] [address] [place] #### AUGUST, ASO, RA #### [facility] , GFR/1.73 sq M.predicted MDRD (S/P/Bld) [Vol rate/Area] mL/min/{1.73_m2} Normal [facility] [employer] Other Comment on above: Order Comment: Reaso n for Exam Hyperthyroidism Performed By: #### M G, CBC, CRP, T4F, TSH3, ESR, URIC, CMP #### [facility] [address] [place] [address] [place] #### AUGUST, ASO, RA #### [facility] , Globulin (S) [Mass/Vol] 2.2 g/dL Normal [facility] Comment on above: Order Comment: Reaso n for Exam Hyperthyroidism Performed By: #### M G, CBC, CRP, T4F, TSH3, ESR, URIC, CMP #### [facility] [address] [place] [address] #### AUGUST, ASO, RA #### [facility] , Glucose [Mass/Vol] 89 mg/dL Normal 70-100 [employer] Other Comment on above: Order Comment: Reaso n for Exam Hyperthyroidism Result Comment: [facility] Glucose Reference Range is dependent on time and content of last meal. Glucose of more than 200 mg/dL in a nonstressed, ambulatory subject supports the diagnosis of Diabetes Mellitus. ADA recommended reference range Performed By: #### M G, CBC, CRP, T4F, TSH3, ESR, URIC, CMP #### [place] [address] [place] #### AUGUST, ASO, RA #### [facility] , Potassium [Moles/Vol] 3.7 mmol/L Normal 3.5-5.1 [facility] Comment on above: Order Comment: Reaso n for Exam Hyperthyroidism Performed By: #### M G, CBC, CRP, T4F, TSH3, ESR, URIC, CMP #### [facility] [address] [place] [address] [place] #### AUGUST, ASO, RA #### [facility] , Protein [Mass/Vol] 6.0 g/dL Low 6.4-8.9 [facility] Comment on above: Order Comment: Reaso n for Exam Hyperthyroidism Performed By: #### M G, CBC, CRP, T4F, TSH3, ESR, URIC, CMP #### [place] [address] [place] #### AUGUST, ASO, RA #### [facility] , Sodium [Moles/Vol] 143 mmol/L Normal 136-145 [facility] [employer] Other Comment on above: Order Comment: Reaso n for Exam Hyperthyroidism Performed By: #### M G, CBC, CRP, T4F, TSH3, ESR, URIC, CMP #### [facility] [address] [place] [address] [place] #### AUGUST, ASO, RA #### [facility] , Urea nitrogen [Mass/Vol] 21 mg/dL Normal 7-25 [facility] [employer] Other Comment on above: Order Comment: Reaso n for Exam Hyperthyroidism Performed By: #### M G, CBC, CRP, T4F, TSH3, ESR, URIC, CMP #### [facility] [address] [place] [address] [place] #### AUGUST, ASO, RA #### [facility] , Free T4 (Free Thyroxine)on 0 07-08-2023 Free T4 [Mass/Vol] 1.25082049 ng/dL High 0.61- 1.12 ng/dL [facility] [employer] Other Free T4 [Mass/Vol] 1.46 ng/dL High 0.61-1.12 [facility] Comment on above: Order Comment: Reaso n for Exam Hyperthyroidism Performed By: #### M G, CBC, CRP, T4F, TSH3, ESR, URIC, CMP #### [facility] [address] [place] [address] [place] #### AUGUST, ASO, RA #### [facility] , Thyroid Antibodies TPO+Tg Ab on 07-08-2023 Thyroid Antibodies TPO+Tg Ab 11 0-34 [facility] [employer] Other Thyroid Antibodies TPO+Tg Ab <1.0 0.0-0.9 [employer] Other Antithyroglobulin Ab <1.0 Normal 0.0-0.9 [facility] Comment on above: Order Comment: Reaso n for Exam Hyperthyroidism Result Comment: Thyr oglobulin Antibody measured by [employer] Performed at: [facility] [id number] [employer] Contractor: Antonino Belle PhD, Phone: [phone] PERFORMED BY: [place] [address] PATHOLOGIST BRAND MGR JODY SOLANO M.D. Performed By: #### M G, CBC, CRP, T4F, TSH3, ESR, URIC, CMP #### [place] [address] [place] #### AUGUST, ASO, RA #### [facility] , Thyroid Peroxidase Antibodies 11 Normal 0-34 [facility] Comment on above: Order Comment: Reaso n for Exam Hyperthyroidism Performed By: #### M G, CBC, CRP, T4F, TSH3, ESR, URIC, CMP #### [address] #### AUGUST, ASO, RA #### [facility] , Thyroid Stimulating Hormoneo n 07-08-2023 TSH Qn 2.84707169909 m[IU]/L Normal 0.45-5.33 u[iU]/mL [employer] Other TSH Qn 2.42 m[IU]/L Normal 0.45-5.33 [facility] Comment on above: Order Comment: Reaso n for Exam Hyperthyroidism Result Comment: PERF ORMED BY: [place] [address] PATHOLOGIST BRAND MGR JODY SOLANO M.D. Performed By: #### M G, CBC, CRP, T4F, TSH3, ESR, URIC, CMP #### [place] [address] [place] #### AUGUST, ASO, RA #### [facility] , AUGUST Antinuclear Antibodieson 07-04-2023 Antinuclear Abs, IFA Positive Critically abnormal . [facility] Comment on above: Result Comment: Nega tive <1:80 Borderline 1:80 Positive >1:80 Speckled cytoplasmic fluorescence is present. The antibodies noted in this pattern may be associated with, but not restricted to, primary biliary cirrhosis (PBC), polymyositis and dermatomyositis (PM/DM), and/or systemic lupus erythematosus (SLE). Performed By: #### M G, CBC, CRP, T4F, TSH3, ESR, URIC, CMP #### [facility] [address] #### AUGUST, ASO, RA #### [facility] , Homogeneous Pattern 1:160 High . [facility] Comment on above: Result Comment: ICAP nomenclature: [id number] Performed By: #### M G, CBC, CRP, T4F, TSH3, ESR, URIC, CMP #### [facility] [address] #### AUGSUT, ASO, RA #### [facility] , Note 1 Normal . [facility] Comment on above: Result Comment: Lucita marshall Potential Disease Association Homogeneous Systemic Lupus Erythematosus, Drug Induced Systemic Lupus Erythematosus, Chronic Autoimmune hepatitis, Juvenile Idiopathic Arthritis Speckled Sjogren Syndrome, Systemic Lupus Erythematosus, Subacute Cutaneous Lupus, Lupus, Congenital Heart Block, Mixed Connective Tissue Disease, Scleroderma-diffuse, Scleroderma-Autoimmune Myositis Overlap Syndrome, Systemic Lupus Vxneahzyuhlhb-Tjfqkcaadhi-Prnqvkrkyb Myositis Overlap Syndrome, Systemic Autoimmune Rheumatic Disease, Undifferentiated Connective Tissue Disease Nucleolar Systemic Sclerosis, Scleroderma-Autoimmune Myositis Overlap Syndrome, Sjogren Syndrome, Raynaud phenomenon, Pulmonary Arterial Hypertension, Systemic Autoimmune Rheumatic Disease, Cancer Centromere Scleroderma-CREST, Limited Cutaneous SSc, Raynaud's Phenomenon, Primary Biliary Cholangitis Nuclear Dot Primary Biliary Cholangitis Nuclear Primary Biliary Cholangitis, Autoimmune Membrane Hepatitis/Liver disease, Systemic Autoimmune Rheumatic Disease, Autoimmune Cytopenias, Linear Scleroderma, Antiphospholipid Syndrome Performed at: [facility] [id number] [employer] Contractor: Antonino Belle PhD, Phone: [phone] Performed By: #### M G, CBC, CRP, T4F, TSH3, ESR, URIC, CMP #### [address] #### AUGUST, ASO, RA #### [facility] , Anti-Streptolysin O Antibody on 07-04-2023 Anti-Streptolysin O Antibody <20.0 Normal 0.0-200.0 [facility] Comment on above: Result Comment: Perf ormed at: [facility] [id number] [employer] Contractor: Antonino Belle PhD, Phone: [phone] PERFORMED BY: [place] [address] PATHOLOGIST BRAND MGR JODY SOLANO M.D. Performed By: #### M G, CBC, CRP, T4F, TSH3, ESR, URIC, CMP #### [address] #### AUGUST, ASO, RA #### [facility] , C-Reactive Proteinon 024 C-Reactive Protein 0.5 mg/dL Normal 0.0-0.5 [facility] Comment on above: Performed By: #### M G, CBC, CRP, T4F, TSH3, ESR, URIC, CMP #### [address] #### AUGUST, ASO, RA #### [facility] , Complete Blood Count Auto Di ffon 07-04-2023 Basophils (Bld) [#/Vol] 0.0 10*3/uL Normal 0.0-0.2 [facility] Comment on above: Performed By: #### M G, CBC, CRP, T4F, TSH3, ESR, URIC, CMP #### [address] #### AUGUST, ASO, RA #### [facility] , Basophils/100 WBC (Bld) 0.6 % Normal . [facility] Comment on above: Performed By: #### M G, CBC, CRP, T4F, TSH3, ESR, URIC, CMP #### [facility] [address] [place] [address] [place] #### AUGUST, ASO, RA #### [facility] , Eosinophils (Bld) [#/Vol] 0.1 10*3/uL Normal 0.0-0.45 [facility] Comment on above: Performed By: #### M G, CBC, CRP, T4F, TSH3, ESR, URIC, CMP #### [address] #### AUGUST, ASO, RA #### [facility] , Eosinophils/100 WBC (Bld) 0.7 % Normal . [facility] Comment on above: Performed By: #### M G, CBC, CRP, T4F, TSH3, ESR, URIC, CMP #### [place] [address] [place] #### AUGUST, ASO, RA #### [facility] , Erythrocyte distribution width (RBC) [Ratio] 14.1 % Normal 11.9-15.3 [facility] Comment on above: Performed By: #### M G, CBC, CRP, T4F, TSH3, ESR, URIC, CMP #### [address] #### AUGUST, ASO, RA #### [facility] , Hematocrit (Bld) [Volume fraction] 38.8 % Normal 34.0-46.4 [facility] Comment on above: Performed By: #### M G, CBC, CRP, T4F, TSH3, ESR, URIC, CMP #### [address] #### AUGUST, ASO, RA #### [facility] , Hemoglobin (Bld) [Mass/Vol] 13.4 g/dL Normal 11.8-15.4 [facility] Comment on above: Performed By: #### M G, CBC, CRP, T4F, TSH3, ESR, URIC, CMP #### [place] [address] [place] #### AUGUST, ASO, RA #### [facility] , Lymphocytes (Bld) [#/Vol] 1.0 10*3/uL Normal 1.00-4.8 [facility] Comment on above: Performed By: #### M G, CBC, CRP, T4F, TSH3, ESR, URIC, CMP #### [address] #### AUGUST, ASO, RA #### [facility] , Lymphocytes/100 WBC (Bld) 13.9 % Normal . [facility] Comment on above: Performed By: #### M G, CBC, CRP, T4F, TSH3, ESR, URIC, CMP #### [facility] [address] [place] [address] [place] #### AUGUST, ASO, RA #### [facility] , MCH (RBC) [Entitic mass] 33.9 pg Normal 24.7-34.3 [facility] Comment on above: Performed By: #### M G, CBC, CRP, T4F, TSH3, ESR, URIC, CMP #### [address] #### AUGUST, ASO, RA #### [facility] , MCV (RBC) [Entitic vol] 98.3 fL Normal 80-100 [facility] Comment on above: Performed By: #### M G, CBC, CRP, T4F, TSH3, ESR, URIC, CMP #### [address] #### AUGUST, ASO, RA #### [facility] , Mean Corpuscular HGB Conc 34.4 g/dL Normal 32.0-35.0 [facility] Comment on above: Performed By: #### M G, CBC, CRP, T4F, TSH3, ESR, URIC, CMP #### [place] [address] [place] #### AUGUST, ASO, RA #### [facility] , Monocytes (Bld) [#/Vol] 0.4 10*3/uL Normal 0.0-0.8 [facility] Comment on above: Performed By: #### M G, CBC, CRP, T4F, TSH3, ESR, URIC, CMP #### [address] [place] [address] [place] #### AUGUST, ASO, RA #### [facility] , Monocytes/100 WBC (Bld) 5.4 % Normal . [facility] Comment on above: Performed By: #### M G, CBC, CRP, T4F, TSH3, ESR, URIC, CMP #### [facility] [address] [place] [address] [place] #### AUGUST, ASO, RA #### [facility] , Neutrophils (Bld) [#/Vol] 5.8 10*3/uL Normal 1.8-7.7 [facility] Comment on above: Performed By: #### M G, CBC, CRP, T4F, TSH3, ESR, URIC, CMP #### [address] #### AUGUST, ASO, RA #### [facility] , Neutrophils/100 WBC (Bld) 79.4 % Normal . [facility] Comment on above: Performed By: #### M G, CBC, CRP, T4F, TSH3, ESR, URIC, CMP #### [facility] [address] [place] [address] [place] #### AUGUST, ASO, RA #### [facility] , NRBC% 0.0 /100{WBC} Normal 0-0.5 [facility] Comment on above: Performed By: #### M G, CBC, CRP, T4F, TSH3, ESR, URIC, CMP #### [place] [address] [place] #### AUGUST, ASO, RA #### [facility] , Platelet mean volume (Bld) [Entitic vol] 9.6 fL Normal 6.3-10.7 [facility] Comment on above: Performed By: #### M G, CBC, CRP, T4F, TSH3, ESR, URIC, CMP #### [facility] [address] [place] [address] [place] #### AUGUST, ASO, RA #### [facility] , Platelets (Bld) [#/Vol] 211 10*3/uL Normal 150-450 [facility] Comment on above: Performed By: #### M G, CBC, CRP, T4F, TSH3, ESR, URIC, CMP #### [facility] [address] [place] [address] [place] #### AUGUST, ASO, RA #### [facility] , RBC (Bld) [#/Vol] 3.95 10*6/uL Normal 3.60-5.00 [facility] Comment on above: Performed By: #### M G, CBC, CRP, T4F, TSH3, ESR, URIC, CMP #### [facility] [address] [place] [address] #### AUGUST, ASO, RA #### [facility] , WBC (Bld) [#/Vol] 7.3 10*3/uL Normal 3.8-11.6 [facility] Comment on above: Performed By: #### M G, CBC, CRP, T4F, TSH3, ESR, URIC, CMP #### [facility] [address] [place] [address] [place] #### AUGUST, ASO, RA #### [facility] , Comprehensive Metabolic Pane nory 07-04-2023 Albumin [Mass/Vol] 4.2 g/dL Normal 3.5-5.7 [facility] Comment on above: Performed By: #### M G, CBC, CRP, T4F, TSH3, ESR, URIC, CMP #### [facility] [address] [place] [address] [place] #### AUGUST, ASO, RA #### [facility] , Albumin/Globulin [Mass ratio] 1.8 {ratio} Normal [facility] Comment on above: Performed By: #### M G, CBC, CRP, T4F, TSH3, ESR, URIC, CMP #### [facility] [address] [place] [address] #### AUGUST, ASO, RA #### [facility] , ALP [Catalytic activity/Vol] 220 U/L High 34-104 [facility] Comment on above: Performed By: #### M G, CBC, CRP, T4F, TSH3, ESR, URIC, CMP #### [facility] [address] [place] [address] [place] #### AUGUST, ASO, RA #### [facility] , ALT [Catalytic activity/Vol] 181 U/L High 7-52 [facility] Comment on above: Performed By: #### M G, CBC, CRP, T4F, TSH3, ESR, URIC, CMP #### [facility] [address] [place] [address] #### AUGUST, ASO, RA #### [facility] , Anion gap [Moles/Vol] 11.0 mmol/L Normal 6.0-15.0 [facility] Comment on above: Performed By: #### M G, CBC, CRP, T4F, TSH3, ESR, URIC, CMP #### [facility] [address] [place] [address] [place] #### AUGUST, ASO, RA #### [facility] , AST [Catalytic activity/Vol] 56 U/L High 13-39 [facility] Comment on above: Performed By: #### M G, CBC, CRP, T4F, TSH3, ESR, URIC, CMP #### [facility] [address] [place] [address] [place] #### AUGUST, ASO, RA #### [facility] , Bilirubin [Mass/Vol] 1.2 mg/dL High 0.3-1.0 [facility] Comment on above: Performed By: #### M G, CBC, CRP, T4F, TSH3, ESR, URIC, CMP #### [facility] [address] [place] [address] [place] #### AUGUST, ASO, RA #### [facility] , Calcium [Mass/Vol] 10.0 mg/dL Normal 8.6-10.3 [facility] Comment on above: Performed By: #### M G, CBC, CRP, T4F, TSH3, ESR, URIC, CMP #### [facility] [address] [place] [address] [place] #### AUGUST, ASO, RA #### [facility] , Chloride [Moles/Vol] 105 mmol/L Normal 98-107 [facility] Comment on above: Performed By: #### M G, CBC, CRP, T4F, TSH3, ESR, URIC, CMP #### [facility] [address] [place] [address] #### AUGUST, ASO, RA #### [facility] , CO2 [Moles/Vol] 29.8 mmol/L Normal 21.0-31.0 [facility] Comment on above: Performed By: #### M G, CBC, CRP, T4F, TSH3, ESR, URIC, CMP #### [address] #### AUGUST, ASO, RA #### [facility] , Creatinine [Mass/Vol] 0.68 mg/dL Normal 0.60-1.20 [facility] Comment on above: Performed By: #### M G, CBC, CRP, T4F, TSH3, ESR, URIC, CMP #### [facility] [address] [place] [address] [place] #### AUGUST, ASO, RA #### [facility] , GFR/1.73 sq M.predicted MDRD (S/P/Bld) [Vol rate/Area] mL/min/{1.73_m2} Normal [facility] Comment on above: Performed By: #### M G, CBC, CRP, T4F, TSH3, ESR, URIC, CMP #### [facility] [address] [place] [address] [place] #### AUGUST, ASO, RA #### [facility] , Globulin (S) [Mass/Vol] 2.4 g/dL Normal [facility] Comment on above: Performed By: #### M G, CBC, CRP, T4F, TSH3, ESR, URIC, CMP #### [facility] [address] [place] [address] [place] #### AUGUST, ASO, RA #### [facility] , Glucose [Mass/Vol] 97 mg/dL Normal 70-100 [facility] Comment on above: Result Comment: [facility] Glucose Reference Range is dependent on time and content of last meal. Glucose of more than 200 mg/dL in a nonstressed, ambulatory subject supports the diagnosis of Diabetes Mellitus. ADA recommended reference range Performed By: #### M G, CBC, CRP, T4F, TSH3, ESR, URIC, CMP #### [facility] [address] [place] [address] [place] #### AUGUST, ASO, RA #### [facility] , Potassium [Moles/Vol] 3.8 mmol/L Normal 3.5-5.1 [facility] Comment on above: Performed By: #### M G, CBC, CRP, T4F, TSH3, ESR, URIC, CMP #### [place] [address] [place] #### AUGUST, ASO, RA #### [facility] , Protein [Mass/Vol] 6.6 g/dL Normal 6.4-8.9 [facility] Comment on above: Performed By: #### M G, CBC, CRP, T4F, TSH3, ESR, URIC, CMP #### [facility] [address] [place] [address] [place] #### AUGUST, ASO, RA #### [facility] , Sodium [Moles/Vol] 142 mmol/L Normal 136-145 [facility] Comment on above: Performed By: #### M G, CBC, CRP, T4F, TSH3, ESR, URIC, CMP #### [facility] [address] [place] [address] [place] #### AUGUST, ASO, RA #### [facility] , Urea nitrogen [Mass/Vol] 19 mg/dL Normal 7-25 [facility] Comment on above: Performed By: #### M G, CBC, CRP, T4F, TSH3, ESR, URIC, CMP #### [facility] [address] [place] [address] #### AUGUST, ASO, RA #### [facility] , Erythrocyte Sedimentation Ra amy 07-04-2023 ESR (Bld) [Velocity] 19 mm/h Normal 0-29 [facility] Comment on above: Result Comment: PERF ORMED BY: [place] [address] PATHOLOGIST BRAND MGR JODY SOLANO M.D. Performed By: #### M G, CBC, CRP, T4F, TSH3, ESR, URIC, CMP #### [address] #### AUGUST, ASO, RA #### [facility] , Free T4 (Free Thyroxine)on 0 07-04-2023 Free T4 [Mass/Vol] 4.05 ng/dL High 0.61-1.12 [facility] Comment on above: Performed By: #### M G, CBC, CRP, T4F, TSH3, ESR, URIC, CMP #### [facility] [address] [place] [address] [place] #### AUGUST, ASO, RA #### [facility] , Magnesiumon 07-04-2023 Magnesium [Mass/Vol] 2.0 mg/dL Normal 1.9-2.7 [facility] Comment on above: Performed By: #### M G, CBC, CRP, T4F, TSH3, ESR, URIC, CMP #### [facility] [address] [place] [address] [place] #### AUGUST, ASO, RA #### [facility] , Rheumatoid Factoron 07-04-19 Rheumatoid Factor 15.3 High <14.0 [facility] Comment on above: Result Comment: Perf ormed at: [facility] [id number] [employer] Contractor: Antonino Belle PhD, Phone: [phone] Performed By: #### M G, CBC, CRP, T4F, TSH3, ESR, URIC, CMP #### [facility] [address] [place] [address] #### AUGUST, ASO, RA #### [facility] , Thyroid Stimulating Hormoneo n 07-04-2023 TSH Qn 1.35 m[IU]/L Normal 0.45-5.33 [facility] Comment on above: Result Comment: PERF ORMED BY: [place] [address] PATHOLOGIST BRAND MGR JODY SOLANO M.D. Performed By: #### M G, CBC, CRP, T4F, TSH3, ESR, URIC, CMP #### [facility] [address] [place] [address] #### AUGUST, ASO, RA #### [facility] , Uric Acidon 07-04-2023 Urate [Mass/Vol] 4.0 mg/dL Normal 2.3-6.6 [facility] Comment on above: Performed By: #### M G, CBC, CRP, T4F, TSH3, ESR, URIC, CMP #### [facility] [address] [place], [place] [address] #### AUGUST, ASO, RA #### [facility] , Echocardiogramon 02-26-[address], [address] [address] TRANSTHORACIC ECHOCARDIOGRAM REPORT Patient Name: LAVONNE Bahena Physician: [id number] Shy Wolf MD, [facility] Study Date: 02/26/2023 Referring SHY WOLF Physician: MRN/PID: [id number] PCP: Suhas Garrett MD Accession/Order#: [id number] [facility] Location: Date of : 1935 Fellow: Gender: F Nurse: Admit Date: Correctional Probation Officer: Sheridan Lemus RDCS, RVT Height: 157.48 cm CC Report to: Weight: 67.13 kg Study Type: Echocardiogram BSA: 1.68 m2 Blood Pressure: 122 /76 mmHg Diagnosis/ICD: I35.0-Nonrheumatic aortic (valve) stenosis; R01.1-Cardiac murmur, unspecified Indication: HTN, Hyperlipidemia, Overweight, Hypothyroid, Polymyalgia Rheumatica Procedure/CPT: Echo Complete w Full [id number] Study Detail: The following Echo studies were performed: 2D, M-Mode, Doppler and color flow. PHYSICIAN INTERPRETATION: Left Ventricle: Left ventricular systolic function is normal, with an estimated ejection fraction of 70%. There are no regional wall motion abnormalities. The left ventricular cavity size is normal. Spectral Doppler shows an impaired relaxation pattern of left ventricular diastolic filling. Left Atrium: The left atrium is normal in size. Right Ventricle: The right ventricle is normal in size. There is normal right ventricular global systolic function. Right Atrium: The right atrium is normal in size. Aortic Valve: The aortic valve is trileaflet. There is no evidence of aortic valve regurgitation. The peak instantaneous gradient of the aortic valve is 56.0 mmHg. The mean gradient of the aortic valve is 26.0 mmHg. Peak velocity across the aortic valve measured 374 cm/s corresponding to a peak pressure gradient 56 mmHg and mean pressure gradient 26 mmHg. Using the continuity equation the aortic valve area measured 0.76 cm??? consistent with severe stenosis. Mitral Valve: The mitral valve is mildly thickened. There is trace mitral valve regurgitation. Tricuspid Valve: The tricuspid valve is structurally normal. There is trace tricuspid regurgitation. Calculated RVSP 41 mmHg consistent with mild pulmonary hypertension. Pulmonic Valve: The pulmonic valve is structurally normal. There is trace to mild pulmonic valve regurgitation. Pericardium: There is no pericardial effusion noted. Aorta: The aortic root is normal. Systemic Veins: The inferior vena cava appears to be of normal size. In comparison to the previous echocardiogram(s): When compared to a study from 02/21/2022, the velocity across the aortic valve has increased from 336 cm/s up to 374 cm/s and aortic valve area has dropped from 1.0 to 0.76 cm???. CONCLUSIONS: 1. Left ventricular systolic function is normal with a 70% estimated ejection fraction. 2. Spectral Doppler shows an impaired relaxation pattern of left ventricular diastolic filling. 3. Calculated RVSP 41 mmHg consistent with mild pulmonary hypertension. 4. Peak velocity across the aortic valve measured 374 cm/s corresponding to a peak pressure gradient 56 mmHg and mean pressure gradient 26 mmHg. Using the continuity equation the aortic valve area measured 0.76 cm??? consistent with severe stenosis. 5. When compared to a study from 02/21/2022, the velocity across the aortic valve has increased from 336 cm/s up to 374 cm/s and aortic valve area has dropped from 1.0 to 0.76 cm???. QUANTITATIVE DATA SUMMARY: 2D MEASUREMENTS: Normal Ranges: Ao Root d: 2.60 cm (2.0-3.7cm) LAs: 3.30 cm (2.7-4.0cm) RVIDd: 2.70 cm (0.9-3.6cm) IVSd: 1.20 cm (0.6-1.1cm) LVPWd: 0.80 cm (0.6-1.1cm) LVIDd: 3.90 cm (3.9-5.9cm) LVIDs: 2.40 cm LV Mass Index: 72.6 g/m2 LV % FS 38.5 % LV SYSTOLIC FUNCTION BY 2D PLANIMETRY (MOD): Normal Ranges: EF-A4C View: 74.6 % (>=55%) LV DIASTOLIC FUNCTION: Normal Ranges: MV Peak E: 1.18 m/s (0.7-1.2 m/s) MV Peak A: 1.33 m/s (0.42-0.7 m/s) E/A Ratio: 0.89 (1.0-2.2) MV lateral e' 0.10 m/s MV medial e' 0.06 m/s E/e' Ratio: 12.40 (<8.0) MITRAL VALVE: Normal Ranges: MV Vmax: 1.41 m/s (<=1.3m/s) MV peak P.0 mmHg (<5mmHg) MV mean P.0 mmHg (<48mmHg) MITRAL INSUFFICIENCY: Normal Ranges: MR Vmax: 311.00 cm/s AORTIC VALVE: Normal Ranges: AoV Vmax: 3.74 m/s (<=1.7m/s) AoV Peak P.0 mmHg (<20mmHg) AoV Mean P.0 mmHg (1.7-11.5mmHg) LVOT Max Haseeb: 0.90 m/s (<=1.1m/s) AoV VTI: 97.30 cm (18-25cm) LVOT VTI: 23.10 cm LVOT Diameter: 2.00 cm (1.8-2.4cm) AoV Area, VTI: 0.75 cm2 (2.5-5.5cm2) AoV Area,Vmax: 0.76 cm2 (2.5-4.5cm2) AoV Dimensionless Index: 0.24 TRICUSPID VALVE/RVSP: Normal Ranges: Peak TR Velocity: 2.99 m/s RV Syst Pressure: 38.8 mmHg (< 30mmHg) PULMONIC VALVE: Normal Ranges: PV Max Haseeb: 0.8 m/s (0.6-0.9m/s) PV Max P.6 mmHg PIEDV: 2.50 m/s PADP: 28.0 mmHg [id number] Shy Wolf MD, FACC Electronically signed on 03/01/2023 at 2:16:46 PM Final Normal [facility] Office Visit (Cardiology)on 12-24-2022 Follow-up visit Diagnoses/Problems Assessed Aortic stenosis (424.1) (I35.0) Murmur, cardiac (785.2) (R01.1) Essential hypertension (401.9) (I10) Hyperlipidemia (272.4) (E78.5) Overweight with body mass index (BMI) of 27 to 27.9 in adult (278.02,V85.23) (E66.3,Z68.27) Never smoker Hypothyroidism (244.9) (E03.9) PMR (polymyalgia rheumatica) (725) (M35.3) Orders Aortic stenosis, Murmur, cardiac Echocardiogram; Status:Hold For - Scheduling,Retrospec tive Authorization; Requested for:[id number]; Essential hypertension, Hyperlipidemia Changed: From Aspirin EC 81 MG TBEC TAKE 1 TABLET To Aspirin 81 MG Oral Tablet Delayed Release TAKE 1 TABLET DAILY Overweight with body mass index (BMI) of 27 to 27.9 in adult Healthy Weight Tips; Status:Complete - Retrospective Authorization; Done: [id number] Some eating tips that can help you lose weight.; Status:Complete - Retrospective Authorization; Done: [id number] SocHx: Never smoker Tobacco Use Screening; Status:Complete; Done: [id number] Patient Instructions Please bring all medicines, vitamins, and herbal supplements with you when you come to the office. Prescriptions will not be filled unless you are compliant with your follow up appointments or have a follow up appointment scheduled as per instruction of your physician. Refills should be requested at the time of your visit. Echo-Sept Follow up in 6 months Chief Complaint LAVONNE VILLATORO is being seen for an annual follow-up of. Patient is in the office for follow-up for the problems noted below. Since her last visit a year ago she had an echocardiogram which demonstrated moderate degree of aortic stenosis. She remains asymptomatic in that regard. Her blood pressure is under control on medical therapy. She developed an intermittent edema in the lower extremity, caused by the amlodipine. Measures to avoid this problem were discussed and explained to the patient. Recent lab data were reviewed with the patient. Her weight is unchanged from previously. She is slightly overweight. She had no syncope orthopnea PND or chest pain on exertion. ASSESSMENT AND PLAN: 1. Hypertension, multiple medication, currently under control, no changes are needed. 2. Hyperlipidemia, being managed with diet and lifestyle modifications. 3. Hypothyroidism, on replacement therapy. 4. Moderate aortic stenosis confirmed by echocardiogram February 2022. The velocity measures 336 cm/s, asymptomatic, this was shared with the patient and annual echocardiogram is scheduled 5. Slight overweight. Patient is aware of it and is working to get her weight further down 6. Polymyalgia rheumatica currently on high-dose steroids. Managed by PCP. The prednisone is being tapered gradually Shy Wolf MD, [facility] Past Medical History Problems History of Carotid bruit (785.9) (R09.89) Current Meds Medication NameInstruction amLODIPine Besylate 10 MG Oral TabletTAKE 1 TABLET DAILY. Aspirin EC 81 MG TBECTAKE 1 TABLET -W-F Calcium 600 MG TABSTAKE 1 TABLET DAILY. Carvedilol 6.25 MG Oral TabletTAKE 1 TABLET TWICE DAILY WITH MEALS. Levothyroxine Sodium 100 MCG Oral TabletTAKE 1 TABLET DAILY. Losartan Potassium-HCTZ 100-12.5 MG Oral TabletTAKE 1 TABLET DAILY. Multi Vitamin Oral TabletTAKE 1 TABLET DAILY. [place]-3 Fish Oil 1000 MG Oral CapsuleTAKE 1 CAPSULES BY MOUTH DAILY predniSONE 5 MG Oral Tablettake 5mg alternating with 2.5mg Allergies Medication amoxicillin Hives;; Recorded By: Kayla Orr; 10/17/2021 10:50:34 AM Dilantin CAPS Rash; Recorded By: Kayla Orr; 10/17/2021 10:50:34 AM Fosamax eye pain; Recorded By: Kayla Orr; 10/17/2021 10:50:34 AM Depakote ER TB24 Recorded By: Kayla Orr; 10/17/2021 10:50:34 AM Social History Problems Caffeine use (V49.89) (Z78.9) Never smoker No alcohol use No illicit drug use Review of Systems Constitutional: not feeling tired. Cardiovascular: no intermittent leg claudication and as noted in HPI. Respiratory: no cough and no shortness of breath. Gastrointestinal: no change in bowel habits and no blood in stools. Integumentary: no skin rashes. Neurological: no seizures and no frequent falls. All other systems have been reviewed and are negative for complaint. Vitals Vital Signs Recorded: [id number] 11:32AM Heart Rate68, R Radial Xdgmycyi411, RUE, Sitting Evgeihynh46, RUE, Sitting Height5 ft 2 in Biaylc309 lb BMI Rdcgmqmlff19.07 kg/m2 BSA Calculated1.68 Tobacco Useb) No PHQ-2 #1. Over the last 2 weeks have you felt down, depressed or hopeless? (If yes, answer PHQ-9 below)No PHQ-2 #2. Over the last 2 weeks have you felt little interest or pleasure in doing things? (If yes, answer PHQ-9 below)No Falls Screening (Age 18+)a) No falls within the last year Physical Exam Constitutional: alert and in no acute distress. Neck: neck is supple, symmetric, trachea midline, no masses and no thyromegaly . Pulmonary: no increased work of breathing or signs of respiratory distress a (more content not included)... Normal [facility] Tobacco Screening.on 023 Adult depression screening assessment No [facility] [address] DO Work Phone: Fall risk assessment a) No falls within the last year [facility] [employer] [address] DO Work Phone: Tobacco use status CPHS b) No [facility] [employer] [address] DO Work Phone: Complete Blood Count Auto Di ffon 02-22-2022 Basophils (Bld) [#/Vol] 0.620700251 10*3/uL Normal 0.0-0.2 10*3/uL [employer] Other Basophils/100 WBC (Bld) 0.700 % . % [employer] Other Eosinophils (Bld) [#/Vol] 0.081095919 10*3/uL Normal 0.0-0.45 10*3/uL [employer] Other Eosinophils/100 WBC (Bld) 0.700 % . % [employer] Other Erythrocyte distribution width (RBC) [Ratio] 13.500 % Normal 11.9-15.3 % [employer] Other Hematocrit (Bld) [Volume fraction] 38.400 % Normal 34.0-46.4 % [employer] Other Hemoglobin (Bld) [Mass/Vol] 12.507779 g/dL Normal 11.8-15.4 g/dL [employer] Other Lymphocytes (Bld) [#/Vol] 0.108099066 10*3/uL Low 1.00-4.8 10*3/uL [employer] Other Lymphocytes/100 WBC (Bld) 12.600 % . % [employer] Other MCH (RBC) [Entitic mass] 33.7000 pg Normal 24.7-34.3 pg [employer] Other MCV (RBC) [Entitic vol] 100.4000 fL High 80-100 fL [employer] Other Monocytes (Bld) [#/Vol] 0.200276719 10*3/uL Normal 0.0-0.8 10*3/uL [employer] Other Monocytes/100 WBC (Bld) 6.800 % . % [employer] Other Neutrophils (Bld) [#/Vol] 5.966879984 10*3/uL Normal 1.8-7.7 10*3/uL [employer] Other Neutrophils/100 WBC (Bld) 79.200 % . % [employer] Other Platelet mean volume (Bld) [Entitic vol] 9.4000 fL Normal 6.3-10.7 fL [employer] Other Platelets (Bld) [#/Vol] 223 10*3/uL Normal 150-450 10*3/uL [employer] Other RBC (Bld) [#/Vol] 3.6257625677 10*6/uL Normal 3. 60-5.00 10*6/uL [employer] Other WBC (Bld) [#/Vol] 6.802747000 10*3/uL Normal 3.8 -11.6 10*3/uL [employer] Other Complete Blood Count Auto Diff 6.6 10*3/uL Normal 4.5-11.0 10*3/uL [employer] Other Complete Blood Count Auto Diff 33.6 g/dL Normal 32.0-35.0 g/dL [employer] Other Complete Blood Count Auto Diff 0.1 % Normal 0-0.5 % [employer] Other Erythrocyte Sedimentation Ra amy 02-22-2022 ESR (Bld) [Velocity] 28 mm/h Normal 0-29 [facility] [employer] Other VASC LAB Carotid Artery Dupl ex Ultrasoundon 02-21-2022 US.doppler Carotid arteries [facility] [employer] [address] [place] Work Phone: COVID Quick Testingon 2021 Result Positive [facility] [employer] Other Falls Screening (Age 18+)on 12-26-2021 Fall risk assessment a) No falls within the last year [facility] [employer] [address] DO Work Phone: Office Visit (Cardiology)on 12-26-2021 Follow-up visit Diagnoses/Problems Assessed Essential hypertension (401.9) (I10) Patient Instructions By signing my name below, ISherin Lpn, Scribe, attest that this documentation has been prepared under the direction and in the presence of Dr. Shy Wolf MD. All medical record entries made by the Scribe were at my direction and personally dictated by me. I have reviewed the chart and agree that the record accurately reflects my personal performance of the history, physical exam, discussion and plan. Follow up as scheduled in Jun 2022 Carotid and Echo as scheduled 01/17/2022 Same meds. Chief Complaint LAVONNE VILLATORO is being seen for hypertension. Patient is in the office for hypertension management. Since we increased amlodipine up to 10 mg daily her blood pressure is under control. No side effects have been encountered. Current Meds Medication NameInstruction amLODIPine Besylate 10 MG Oral TabletTAKE 1 TABLET DAILY. Aspirin EC 81 MG Oral Tablet Delayed ReleaseTAKE 1 TABLET M-W-F Calcium 600 MG TABSTAKE 1 TABLET DAILY. Carvedilol 6.25 MG Oral TabletTAKE 1 TABLET TWICE DAILY WITH MEALS. Levothyroxine Sodium 100 MCG Oral TabletTAKE 1 TABLET DAILY. Losartan Potassium-HCTZ 100-12.5 MG Oral TabletTAKE 1 TABLET DAILY. Multi Vitamin Oral TabletTAKE 1 TABLET DAILY. [place] 3 500 CAPSTAKE 1 CAPSULE Daily predniSONE 5 MG Oral Psznsa5QQ 7.5MG BY MOUTH ONE DAILY ALTERNATING EVERY OTHER DAY Allergies Medication amoxicillin Hives;; Recorded By: Kayla Orr; 10/17/2021 10:50:34 AM Dilantin CAPS Rash; Recorded By: Kayla Orr; 10/17/2021 10:50:34 AM Fosamax eye pain; Recorded By: Kayla Orr; 10/17/2021 10:50:34 AM Depakote ER TB24 Recorded By: Kayla Orr; 10/17/2021 10:50:34 AM Vitals Vital Signs Recorded: [id number] 11:04AMRecorded: 88Aqx2824 11:00AM Heart Rate56, R Orbejh26, R Radial Prewmsnb811, LUE, Qnaouaa778, RUE Trtkmnxhw42, LUE, Wftptqw27, RUE Height5 ft 2 in5 ft 2 in Tqcwhy295 lb 143 lb BMI Sqnlxasccz00.16 kg/m226.16 kg/m2 BSA Calculated1.661.66 Falls Screening (Age 18+)a) No falls within the last year Signatures Electronically signed by : Shy Wolf MD; Dec 26 2021 4:02PM EST (Author) Normal [employer] Tobacco Screening.on Adult depression screening assessment No [facility] Work Phone: Fall risk assessment a) No falls within the last year [facility] Work Phone: Tobacco use status CPHS b) No [facility] Work Phone: Vital Signs Date Time Vital Sign Value 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 Facility 07-04-2023 11:15-0500 Body height 157.48 cm Suhas Garrett Other [employer] Other 07-04-2023 11:15-0500 Body mass index (BMI) [Ratio] 28.53 kg/m2 Suhas Garrett Other [employer] Other 07-04-2023 11:15-0500 Body weight 70.76 kg Suhas Garrett Other [employer] Other 07-04-2023 11:15-0500 Diastolic blood pressure 84 mm[Hg] Suhas Garrett Other [employer] Other 07-04-2023 11:15-0500 Respiratory rate 20 /min Suhas Garrett Other [employer] Other 07-04-2023 11:15-0500 SaO2% (BldA) [Mass fraction] 99 % Suhas Garrett Other [employer] Other 07-04-2023 11:15-0500 Systolic blood pressure 150 mm[Hg] Suhas Garrett Other [employer] Other 06-19-2023 11:09-0500 Body height 157.5 cm Shy Wolf MD Work Phone: [facility] 06-19-2023 11:09-0500 Body mass index (BMI) [Ratio] 27.98 kg/m2 Shy Wolf MD Work Phone: [facility] 06-19-2023 11:09-0500 Body weight 69.4 kg Shy Wolf MD Work Phone: [facility] 06-19-2023 11:09-0500 Diastolic blood pressure 76 mm[Hg] Shy Wolf MD Work Phone: [facility] 06-19-2023 11:09-0500 Heart rate 60 /min Shy Wolf MD Work Phone: [facility] 06-19-2023 11:09-0500 Systolic blood pressure 120 mm[Hg] Shy Wolf MD Work Phone: [facility] 05-30-2023 11:00-0500 Body height 157.48 cm Suhas Garrett Other [employer] Other 05-30-2023 11:00-0500 Body mass index (BMI) [Ratio] 27.8 kg/m2 Suhas Garrett Other [employer] Other 05-30-2023 11:00-0500 Body weight 68.95 kg Suhas Ugo Other [employer] Other 05-30-2023 11:00-0500 Diastolic blood pressure 80 mm[Hg] Suhas Garrett Other [employer] Other 05-30-2023 11:00-0500 Respiratory rate 18 /min Suhas Garrett Other [employer] Other 05-30-2023 11:00-0500 SaO2% (BldA) [Mass fraction] 96 % Suhas Garrett Other [employer] Other 05-30-2023 11:00-0500 Systolic blood pressure 122 mm[Hg] Suhas Garrett Other [employer] Other 02-28-2023 10:30-0400 Body height 157.48 cm Suhas Garrett Other [employer] Other 02-28-2023 10:30-0400 Body mass index (BMI) [Ratio] 27.98 kg/m2 Suhas Garrett Other [employer] Other 02-28-2023 10:30-0400 Body weight 69.4 kg Suahs Garrett Other [employer] Other 02-28-2023 10:30-0400 Diastolic blood pressure 76 mm[Hg] Suhas Garrett Other [employer] Other 02-28-2023 10:30-0400 Respiratory rate 16 /min Suhas Garrett Other [employer] Other 02-28-2023 10:30-0400 SaO2% (BldA) [Mass fraction] 91 % Suhas Garrett Other [facility] [employer] Other 02-28-2023 10:30-0400 Systolic blood pressure 134 mm[Hg] Suhas Gaeladan Other [facility] [employer] Other 12-24-2022 11:32-0400 Body height 157.48 cm Suhas Dalton Garrett Work Phone: [facility] [address] DO Work Phone: 12-24-2022 11:32-0400 Body mass index (BMI) [Ratio] 27.07 kg/m2 Suhas Hoffman Ugo Work Phone: [facility] [address] DO Work Phone: 12-24-2022 11:32-0400 Body surface area Derived from formula 1.68 m2 Suhas Dalton Garrett Work Phone: [facility] [address] DO Work Phone: 12-24-2022 11:32-0400 Body weight 67.13 kg Suhas Dalton Garrett Work Phone: [facility] [address] DO Work Phone: 12-24-2022 11:32-0400 Diastolic blood pressure 76 mm[Hg] Suhas Hoffman Ugo Work Phone: [facility] [address] DO Work Phone: 12-24-2022 11:32-0400 Heart rate 68 /min Suhas Mayoadan Work Phone: [facility] [address] DO Work Phone: 12-24-2022 11:32-0400 Systolic blood pressure 118 mm[Hg] Suhas Garrett Work Phone: [facility] [address] DO Work Phone: 12-06-2022 10:30-0400 Body height 157.48 cm Suhas Garrett Other [facility] [employer] Other 12-06-2022 10:30-0400 Body mass index (BMI) [Ratio] 27.98 kg/m2 Suhas Garrett Other [place] [employer] Other 12-06-2022 10:30-0400 Body weight 69.4 kg Suhas Garrett Other [place] [employer] Other 12-06-2022 10:30-0400 Diastolic blood pressure 70 mm[Hg] Suhas Garrett Other [place] [employer] Other 12-06-2022 10:30-0400 Respiratory rate 16 /min Suhas Garrett Other [place] [employer] Other 12-06-2022 10:30-0400 SaO2% (BldA) [Mass fraction] 98 % Suhas Garrett Other [place] [employer] Other 12-06-2022 10:30-0400 Systolic blood pressure 146 mm[Hg] Suhas Garrett Other [employer] Other 09-20-2022 11:45-0400 Body height 157.48 cm Suhas Garrett Other [employer] Other 09-20-2022 11:45-0400 Body mass index (BMI) [Ratio] 26.34 kg/m2 Suhas Garrett Other [employer] Other 09-20-2022 11:45-0400 Body weight 65.32 kg Suhas Garrett Other [employer] Other 09-20-2022 11:45-0400 Diastolic blood pressure 70 mm[Hg] Suhas Garrett Other [employer] Other 09-20-2022 11:45-0400 Respiratory rate 16 /min Suhas Garrett Other [employer] Other 09-20-2022 11:45-0400 SaO2% (BldA) [Mass fraction] 98 % Suhas Mayodaan Other [employer] Other 09-20-2022 11:45-0400 Systolic blood pressure 130 mm[Hg] Suhasraquel Mayoadan Other [employer] Other 07-22-2022 11:30-0500 Body height 157.48 cm Suhas Garrett Other [employer] Other 07-22-2022 11:30-0500 Body mass index (BMI) [Ratio] 26.85 kg/m2 Suhas Garrett Other [employer] Other 07-22-2022 11:30-0500 Body weight 66.59 kg Suhas Garrett Other [employer] Other 07-22-2022 11:30-0500 Diastolic blood pressure 70 mm[Hg] Suhas Ugo Other [employer] Other 07-22-2022 11:30-0500 Respiratory rate 16 /min Suhas Garrett Other [employer] Other 07-22-2022 11:30-0500 SaO2% (BldA) [Mass fraction] 98 % Suhasraquel Mayoadan Other [employer] Other 07-22-2022 11:30-0500 Systolic blood pressure 122 mm[Hg] Suhasraquel Mayoadan Other [employer] Other 04-17-2022 11:45-0500 Body height 157.48 cm Suhas Garrett Other [employer] Other 04-17-2022 11:45-0500 Body mass index (BMI) [Ratio] 26.88 kg/m2 Suhas Garrett Other [employer] Other 04-17-2022 11:45-0500 Body weight 66.68 kg Suhas Garrett Other [employer] Other 04-17-2022 11:45-0500 Diastolic blood pressure 72 mm[Hg] Suhas Garrett Other [employer] Other 04-17-2022 11:45-0500 Respiratory rate 16 /min Suhas Ugo Other [employer] Other 04-17-2022 11:45-0500 SaO2% (BldA) [Mass fraction] 99 % Suhas Garrett Other [employer] Other 04-17-2022 11:45-0500 Systolic blood pressure 138 mm[Hg] Suhas Garrett Other [employer] Other 02-22-2022 10:15-0400 Body height 157.48 cm Suhas Garrett Other [employer] Other 02-22-2022 10:15-0400 Body mass index (BMI) [Ratio] 27.07 kg/m2 Suhas Garrett Other [employer] Other 02-22-2022 10:15-0400 Body weight 67.13 kg Suhas Garrett Other [employer] Other 02-22-2022 10:15-0400 Diastolic blood pressure 70 mm[Hg] Suhas Garrett Other [employer] Other 02-22-2022 10:15-0400 Respiratory rate 16 /min Suhas Garrett Other [employer] Other 02-22-2022 10:15-0400 SaO2% (BldA) [Mass fraction] 97 % Suhas Garrett Other [employer] Other 02-22-2022 10:15-0400 Systolic blood pressure 122 mm[Hg] Suhas Garrett Other [employer] Other 02-21-2022 10:45-0400 70 1 Suhas Garrett Work Phone: [facility] [address] [place] Work Phone: Comment on above: [id number] 02-14-2022 15:45-0400 Body height 157.48 cm Suhas Garrett Other [employer] Other 02-14-2022 15:45-0400 Body mass index (BMI) [Ratio] 26.7 kg/m2 Suhas Garrett Other [employer] Other 02-14-2022 15:45-0400 Body weight 66.23 kg Suhas Garrett Other [employer] Other 02-14-2022 15:45-0400 Diastolic blood pressure 72 mm[Hg] Suhas Garrett Other [employer] Other 02-14-2022 15:45-0400 Respiratory rate 16 /min Suhas Mayoadan Other [employer] Other 02-14-2022 15:45-0400 SaO2% (BldA) [Mass fraction] 96 % Suhas Garrett Other [employer] Other 02-14-2022 15:45-0400 Systolic blood pressure 132 mm[Hg] Suhas Garrett Other [employer] Other 12-26-2021 11:04-0400 Body height 157.48 cm Suhas Garrett Work Phone: [employer] [employer] [address] DO Work Phone: 12-26-2021 11:04-0400 Body mass index (BMI) [Ratio] 26.16 kg/m2 Suhas Dalton Garrett Work Phone: [employer] [employer] [address] DO Work Phone: 12-26-2021 11:04-0400 Body surface area Derived from formula 1.66 m2 Suhas Dalton Garrett Work Phone: [employer] [employer] [address] DO Work Phone: 12-26-2021 11:04-0400 Body weight 64.86 kg Suhas Hoffman U[place] Work Phone: [employer] [employer] [address] DO Work Phone: 12-26-2021 11:04-0400 Diastolic blood pressure 68 mm[Hg] Suhas Hoffman Ugo Work Phone: [facility] [address] DO Work Phone: 12-26-2021 11:04-0400 Heart rate 56 /min Suhas Garrett Work Phone: [facility] [address] DO Work Phone: 12-26-2021 11:04-0400 Systolic blood pressure 126 mm[Hg] Suhas Garrett Work Phone: [facility] [employer] DO Work Phone: 12-26-2021 11:00-0400 Diastolic blood pressure 70 mm[Hg] Suhas Garrett Work Phone: [facility] [address] DO Work Phone: 12-26-2021 11:00-0400 Systolic blood pressure 130 mm[Hg] Suhas Garrett Work Phone: [facility] [address] DO Work Phone: 12-13-2021 11:39-0400 Diastolic blood pressure 80 mm[Hg] Suhas Garrett Work Phone: [facility] Work Phone: 12-13-2021 11:39-0400 Systolic blood pressure 170 mm[Hg] Suhas Garrett Work Phone: [facility] Work Phone: 12-13-2021 11:22-0400 Diastolic blood pressure 80 mm[Hg] Suhas Garrett Work Phone: [facility] Work Phone: 12-13-2021 11:22-0400 Systolic blood pressure 158 mm[Hg] Suhas Garrett Work Phone: [facility] Work Phone: 12-13-2021 11:17-0400 Body height 157.48 cm Suhas Garrett Work Phone: [facility] Work Phone: 12-13-2021 11:17-0400 Body mass index (BMI) [Ratio] 26.52 kg/m2 Suhas Garrett Work Phone: [facility] Work Phone: 12-13-2021 11:17-0400 Body surface area Derived from formula 1.67 m2 Suhas Garrett Work Phone: [facility] Work Phone: 12-13-2021 11:17-0400 Body weight 65.77 kg Suhas Garrett Work Phone: [facility] Work Phone: 12-13-2021 11:17-0400 Diastolic blood pressure 80 mm[Hg] Suhas Garrett Work Phone: [facility] Work Phone: 12-13-2021 11:17-0400 Heart rate 60 /min Suhas Garrett Work Phone: [facility] Work Phone: 12-13-2021 11:17-0400 Systolic blood pressure 160 mm[Hg] Suhas Garrett Work Phone: [facility] Work Phone: 10-01-2021 13:30-0400 Body height 157.48 cm Suhas Garrett Other [employer] Other 10-01-2021 13:30-0400 Body mass index (BMI) [Ratio] 26.34 kg/m2 Suhas Garrett Other [employer] Other 10-01-2021 13:30-0400 Body weight 65.32 kg Suhas Garrett Other [employer] Other 10-01-2021 13:30-0400 Diastolic blood pressure 72 mm[Hg] Suhas Garrett Other [employer] Other 10-01-2021 13:30-0400 Respiratory rate 18 /min Suhas Garrett Other [employer] Other 10-01-2021 13:30-0400 SaO2% (BldA) [Mass fraction] 99 % Suhas Garrett Other [employer] Other 10-01-2021 13:30-0400 Systolic blood pressure 130 mm[Hg] Suhas Garrett Other [employer] Other 08-02-2021 13:30-0500 Body height 157.48 cm Suhas Garrett Other [employer] Other 08-02-2021 13:30-0500 Body mass index (BMI) [Ratio] 26.52 kg/m2 Suhas Garrett Other [employer] Other 08-02-2021 13:30-0500 Body weight 65.77 kg Suhas Garrett Other [employer] Other 08-02-2021 13:30-0500 Diastolic blood pressure 70 mm[Hg] Suhas Garrett Other [employer] Other 08-02-2021 13:30-0500 Respiratory rate 16 /min Suhas Garrett Other [employer] Other 08-02-2021 13:30-0500 SaO2% (BldA) [Mass fraction] 99 % Suhas Garrett Other [employer] Other 08-02-2021 13:30-0500 Systolic blood pressure 118 mm[Hg] Suhas Garrett Other [employer] Other 04-26-2021 13:30-0500 Body height 157.48 cm Suhas Garrett Other [employer] Other 04-26-2021 13:30-0500 Body mass index (BMI) [Ratio] 25.97 kg/m2 Suhas Garrett Other [employer] Other 04-26-2021 13:30-0500 Body weight 64.41 kg Suhas Garrett Other [employer] Other 04-26-2021 13:30-0500 Diastolic blood pressure 74 mm[Hg] Suhas Garrett Other [employer] Other 04-26-2021 13:30-0500 Respiratory rate 17 /min Suhas Garrett Other [employer] Other 04-26-2021 13:30-0500 SaO2% (BldA) [Mass fraction] 98 % Suhas Garrett Other [employer] Other 04-26-2021 13:30-0500 Systolic blood pressure 120 mm[Hg] Suhas Garrett Other [employer] Other Encounters Encounter Date Encounter Type Care Provider Facility Start: 08-25-2023 End: 08-26-2023 ambulatory Gloria Weston MD Facility:[facility] Start: 07-18-2023 End: 07-18-2023 ambulatory Suhas Garrett Other [employer] Other Start: 07-18-2023 Telephone encounter Suhas Garrett [facility] [place] Start: 07-15-2023 End: 07-15-2023 ambulatory Suhas Garrett Other [place] [employer] Other Start: 07-15-2023 Telephone encounter Suhas Garrett [facility] [place] Start: 07-10-2023 End: 07-10-2023 ambulatory Suhas Gaeladan Other [facility] [employer] Other Start: 07-10-2023 Telephone encounter Suhasraquel Garrett [facility] [place] Start: 07-08-2023 End: 07-08-2023 ambulatory Suhas Mayoadan Facility:[facility] Start: 07-07-2023 End: 07-07-2023 ambulatory Suhas Ugo Other [facility] [employer] Other Start: 07-07-2023 Telephone encounter Suhasraquel Mayoadan [facility] [place] Start: 07-04-2023 End: 07-04-2023 ambulatory Suhas Gaeladan [facility] [employer] Other Start: 07-04-2023 Office outpatient vi sit 15 minutes Suhas Garrett [facility] [place] Start: 06-19-2023 Telephone encounter Suhasraquel Garrett [facility] [place] Start: 06-19-2023 End: 06-19-2023 ambulatory SHY WOLF [facility] [employer] Other Start: 06-19-2023 End: 06-19-2023 Office outpatient visit 25 minutes Shy Wolf MD Work Phone: [facility] Comment on above: Aortic valve stenosi s, etiology of cardiac valve disease unspecified; Essential hypertension; Hyperlipidemia, unspecified hyperlipidemia type; Never smoked any substance Start: 05-30-2023 End: 05-30-2023 ambulatory Suhas Garrett Other [facility] [employer] Other Start: 05-30-2023 Office outpatient vi sit 25 minutes Suhas Garrett [facility] [place] Start: 05-28-2023 End: 05-28-2023 ambulatory Suhas Mayoadan Other [employer] Other Start: 05-28-2023 Telephone encounter Suhas Garrett [facility] [place] Start: 04-23-2023 End: 04-23-2023 ambulatory Suhas Garrett Other [employer] Other Start: 04-23-2023 Telephone encounter Suhas Garrett [facility] [place] Start: 04-18-2023 End: 04-18-2023 ambulatory Suhas Garrett Other [employer] Other Start: 04-18-2023 Telephone encounter Suhas Garrett [facility] [place] Start: 03-02-2023 Chart Update Suhas Garrett Work Phone: [facility] [address] DO Work Phone: Start: 02-28-2023 End: 02-28-2023 ambulatory Suhas Garrett Other [employer] Other Start: 02-28-2023 Office outpatient vi sit 15 minutes [facility] Start: 02-26-[address] Suhas Garrett Facility:[id number] Start: 01-27-2023 End: 01-27-2023 ambulatory Suhas Garrett Other [employer] Other Start: 01-27-2023 Telephone encounter Suhas [facility] Start: 12-24-2022 Office outpatient vi sit 25 minutes Suhas Garrett Work Phone: [facility] [address] DO Work Phone: Start: 12-24-[address] Shy Wolf Facility: Start: 12-06-2022 End: 12-06-2022 ambulatory Suhas Garrett Other [employer] Other Start: 12-06-2022 Office outpatient vi sit 15 minutes Suhas Mayos [facility] [place] Start: 09-20-2022 End: 09-20-2022 ambulatory Suhas Gaels Other [employer] Other Start: 09-20-2022 Office outpatient vi sit 15 minutes Suhas Mayos [facility] [place] Start: 08-14-2022 End: 08-14-2022 ambulatory Suhas Gaels Other [employer] Other Start: 08-14-2022 Telephone encounter Suhas Gaels [facility] [place] Start: 07-22-2022 End: 07-22-2022 ambulatory Suhas Mayos Other [employer] Other Start: 07-22-2022 Office outpatient vi sit 15 minutes Suhas Mayos [facility] [place] Start: 04-17-2022 End: 04-17-2022 ambulatory Suhas Gaels Other [employer] Other Start: 04-17-2022 Office outpatient vi sit 15 minutes Suhas aGels [facility] [place] Start: 04-10-2022 End: 04-10-2022 ambulatory Suhas Gaels Other [employer] Other Start: 04-10-2022 Telephone encounter Suhasraquel Mayos [facility] [place] Start: 04-03-2022 End: 04-03-2022 ambulatory Suhas Mayos Other [employer] Other Start: 04-03-2022 Telephone encounter Suhas Gaels [facility] [place] Start: 04-02-2022 End: 04-02-2022 ambulatory Suhas Mayos Other [employer] Other Start: 04-02-2022 Telephone encounter Suhas Garrett [facility] [place] Start: 02-26-2022 End: 02-26-2022 ambulatory Suhas Garrett Other [employer] Other Start: 02-26-2022 Telephone encounter Suhas Gaeladan [facility] [place] Start: 02-25-2022 End: 02-25-2022 ambulatory Suhas Garrett Other [employer] Other Start: 02-25-2022 Telephone encounter Suhas Garrett [facility] [place] Start: 02-22-2022 End: 02-22-2022 ambulatory Suhas Garrett Other [employer] Other Start: 02-22-2022 Office outpatient vi sit 25 minutes Suhas Garrett [facility] [place] Start: 02-21-2022 Patient encounter procedure Suhas Garrett Work Phone: [facility] [place] Work Phone: Start: 02-20-2022 End: 02-21-2022 ambulatory MAYO CARBAJAL Facility: Start: 02-14-2022 End: 02-14-2022 ambulatory Suhas Garrett Other [employer] Other Start: 02-14-2022 Office outpatient vi sit 25 minutes Suhas Garrett [facility] [place] Start: 01-11-2022 End: 01-11-2022 ambulatory Suhas Garrett Other [employer] Other Start: 01-11-2022 Nursing evaluation o f patient and report Suhas Garrett [facility] [place] Start: 01-11-2022 Telephone encounter Suhas Garrett [facility] [place] Start: 12-26-2021 Office outpatient vi sit 10 minutes Suhas Garrett Work Phone: [facility] [address] DO Work Phone: Start: 12-26-[address] Suhas Garrett Facility: Start: 12-20-2021 End: 12-20-2021 ambulatory Suhas Garrett Other [employer] Other Start: 12-20-2021 Telephone encounter Suhas Garrett [facility] [place] Start: 12-13-2021 Office outpatient vi sit 25 minutes Suhas Garrett Work Phone: [facility] Work Phone: Start: 11-02-2021 End: 11-02-2021 ambulatory Suhas Garrett Other [employer] Other Start: 11-02-2021 Telephone encounter Suhas Garrett [facility] [place] Start: 10-01-2021 End: 10-01-2021 ambulatory Suhas Garrett Other [employer] Other Start: 10-01-2021 Office outpatient vi sit 15 minutes Suhas Garrett [facility] [place] Start: 09-10-2021 End: 09-10-2021 ambulatory Suhas Garrett Other [employer] Other Start: 09-10-2021 Telephone encounter Suhas Garrett [facility] [place] Start: 08-20-2021 End: 08-20-2021 ambulatory Suhas Garrett Other [employer] Other Start: 08-20-2021 Telephone encounter Suhas Garrett [facility] [place] Start: 08-02-2021 End: 08-02-2021 ambulatory Suhas Garrett Other [employer] Other Start: 08-02-2021 Office outpatient vi sit 15 minutes Suhas Garrett [facility] [place] Start: 07-25-2021 End: 07-25-2021 ambulatory Suhas Garrett Other [employer] Other Start: 07-25-2021 Telephone encounter Suhas Garrett [facility] Start: 05-08-2021 End: 05-08-2021 ambulatory Suhas Garrett Other [employer] Other Start: 05-08-2021 Telephone encounter Suhas Garrett [facility] Start: 04-26-2021 End: 04-26-2021 ambulatory Suhas Garrett Other [employer] Other Start: 04-26-2021 Office outpatient vi sit 25 minutes Suhas Garrett [facility] Procedures Date Procedure Procedure Detail 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 Start: 02-26-2023 Echocardiography Suhas Garrett Work Phone: Start: 02-21-2022 Echocardiography Suhas Garrett Work Phone: Appendectomy Suhas Garrett Work Phone: Cholecystectomy Suhas Garrett Work Phone: Operation on ovary Suhas anderson Work Phone: Thyroidectomy Suhas Garrett Work Phone: Total colonoscopy Suhas sam Work Phone: Plan of Treatment Date Care Activity Detail Author Start: 05-12-2028 DTaP/Tdap/Td Vaccine s (2 - Td or Tdap) DTaP/Tdap/Td Vaccines (2 - Td or Tdap) [facility] Start: 03-16-2024 End: 03-16-2024 Patient encounter procedure 03/16/2024 11:20 AM EDT Office Visit [facility] [address] [place] [address] Shy Wolf MD [address] [place] [address] [facility] Start: 02-11-2024 End: 02-11-2024 Patient encounter procedure 02/11/2024 12:30 PM EDT Appointment [facility] [address] [place] [id number] [facility] Start: 02-08-2024 End: 06-19-2025 Heart Transthoracic Transthoracic Echo (TTE) Complete Echocardiography Routine Aortic valve stenosis, etiology of cardiac valve disease unspecified Expected: 02/08/2024 (Approximate), Expires: 06/19/2025 [facility] Service Area Work Phone: Comment on above: Expected: 02/08/2024 (Approximate), Expires: 06/19/2025 Start: 06-19-2023 FUV, Provider: Shy Wolf, Status: Pen, Time: 11:00 AM FUV, Provider: Shy Wolf, Status: Pen, Time: 11:00 AM [facility] DO Work Phone: Start: 05-28-2023 COVID-19 Vaccine (5 - Moderna series) COVID-19 Vaccine (5 - Moderna series) [facility] Start: 02-26-2023 ECHO, Provider: SAMUEL YII ULTRASOUND 01,[id number], Status: Pen, Time: 10:45 AM ECHO, Provider: SAMUEL HHVI ULTRASOUND 01,[id number], Status: Pen, Time: 10:45 AM [facility] DO Work Phone: Start: 12-24-2022 FUV, Provider: Shy Wolf, Status: Pen, Time: 11:20 AM FUV, Provider: Shy Wolf, Status: Pen, Time: 11:20 AM [facility] Work Phone: Start: 02-21-2022 CAROTID, Provider: SAMUEL YII ULTRASOUND 01,[id number], Status: Pen, Time: 12:30 PM CAROTID, Provider: SAMUEL YII ULTRASOUND 01,[id number], Status: Pen, Time: 12:30 PM [facility] Work Phone: Start: 02-21-2022 ECHO, Provider: SAMUEL HHVI ULTRASOUND 01,[id number], Status: Pen, Time: 10:45 AM ECHO, Provider: SAMUEL HHVI ULTRASOUND 01,[id number], Status: Pen, Time: 10:45 AM [facility] Work Phone: Start: 01-17-2022 CAROTID, Provider: SAMUEL HHVI ULTRASOUND 01,[id number], Status: Pen, Time: 2:30 PM CAROTID, Provider: SAMUEL HHVI ULTRASOUND 01,[id number], Status: Pen, Time: 2:30 PM [facility] Work Phone: Start: 01-17-2022 ECHO, Provider: SAMUEL HHVI ULTRASOUND 01,[id number], Status: Pen, Time: 1:30 PM ECHO, Provider: SAMUEL HHVI ULTRASOUND 01,[id number], Status: Pen, Time: 1:30 PM [facility] Work Phone: Start: 12-26-2021 NURSEVST, Provider: MAGDA DANIEL TIPPLE BOSS 1,[id number], Status: Pen, Time: 11:00 AM NURSEVST, Provider: MADGA DANIEL TIPPLE BOSS 1,[id number], Status: Pen, Time: 11:00 AM [facility] Work Phone: Start: 1935 Lipid panel Lipid Panel [facility] Start: 1935 Medicare Annual Wellness Visit Medicare Annual Wellness Visit (AWV) [facility] Start: 1935 Thyroid stimulating hormone measurement TSH Level [facility] Immunizations Immunization Date Immunization Notes Care Provider Fa cility 04-17-2022 Moderna COVID-19 Bivalent 50 MCG/0.5ML Intramuscular Suspension [facility] Work Phone: 03-21-2022 Fluad Quadrivalent 0 .5 ML Intramuscular Prefilled Syringe Suhas Garrett Work Phone: [facility] Work Phone: 03-21-2022 influenza, seasonal, injectable Suhas Garrett Other [facility] [employer] Other 11-14-2021 Moderna COVID-19 Vaccine 100 MCG/0.5ML Intramuscular Suspension Suhas P Gaels Work Phone: [facility] Work Phone: 04-05-2021 Moderna COVID-19 Vaccine 100 MCG/0.5ML Intramuscular Suspension Suhas P Gaels Work Phone: [facility] Work Phone: 03-19-2021 influenza, seasonal, injectable Suhas Garrett Other [employer] Other 08-08-2020 Moderna COVID-19 Vaccine 100 MCG/0.5ML Intramuscular Suspension Suhas Garrett Work Phone: [facility] Work Phone: 07-11-2020 Moderna COVID-19 Vaccine 100 MCG/0.5ML Intramuscular Suspension Suhas P Ugo Work Phone: [facility] Work Phone: 04-28-2020 pneumococcal polysaccharide vaccine, 23 valent Suhas Garrett Other [employer] Other 03-06-2020 Seasonal trivalent influenza vaccine, adjuvanted, preservative free Suhas Garrett Work Phone: [facility] Work Phone: 03-06-2020 influenza, seasonal, injectable Suhas Garrett Other [employer] Other 02-08-2020 influenza virus vaccine, unspecified formulation Suhas Garrett Work Phone: [facility] Work Phone: 02-08-2020 influenza, seasonal, injectable Suhas Garrett Other [employer] Other 05-04-2019 zoster vaccine recombinant Suhas Garrett Other [employer] Other 03-09-2019 influenza, high dose seasonal, preservative-free Suhas P Gaels Work Phone: [facility] Work Phone: 03-04-2019 influenza, seasonal, injectable Suhas Mayoadan Other [employer] Other 02-04-2019 zoster vaccine recombinant Suhas Garrett Other [employer] Other 05-12-2018 tetanus toxoid, redu bety diphtheria toxoid, and acellular pertussis vaccine, adsorbed Suhas Mayoadan Other [employer] Other 03-16-2018 Seasonal trivalent influenza vaccine, adjuvanted, preservative free Shy Wolf MD Work Phone: [facility] Work Phone: 03-09-2018 influenza virus vaccine, unspecified formulation Suhas Garrett Work Phone: [facility] Work Phone: 04-09-2017 influenza virus vaccine, unspecified formulation Suhas Garrett Work Phone: [facility] Work Phone: 03-28-2017 Seasonal trivalent influenza vaccine, adjuvanted, preservative free Suhas P Ugo Work Phone: [facility] Work Phone: 05-23-2016 pneumococcal conjuga te vaccine, 13 valent Suhas Garrett Other [facility] [employer] Other 04-01-2016 Seasonal trivalent influenza vaccine, adjuvanted, preservative free Suhas P Gaels Work Phone: [facility] Work Phone: 03-09-2016 influenza virus vaccine, unspecified formulation Suhas Garrett Work Phone: [facility] Work Phone: 03-09-2016 pneumococcal conjuga te vaccine, 13 valent Suhas Garrett Work Phone: [facility] Work Phone: 04-07-2015 influenza, injectabl e, quadrivalent, contains preservative Suhas P Ugo Work Phone: [facility] Work Phone: 03-09-2015 influenza virus vaccine, unspecified formulation Suhas Garrett Work Phone: [facility] Work Phone: 04-05-2014 influenza, seasonal, injectable, preservative free Suhas Garrett Work Phone: [facility] Work Phone: 03-09-2014 influenza virus vaccine, whole virus Suhas Garrett Work Phone: [facility] Work Phone: 03-23-2013 influenza, seasonal, injectable Suhas Garrett Work Phone: [facility] Work Phone: 03-09-2013 influenza virus vaccine, unspecified formulation Suhas Garrett Work Phone: [facility] Work Phone: 04-14-2012 influenza, injectabl e, quadrivalent, contains preservative Suhas Garrett Other [facility] [employer] Other 06-09-2011 influenza virus vaccine, unspecified formulation Suhas P Ugo Work Phone: [facility] Work Phone: 06-09-2010 influenza virus vaccine, unspecified formulation Suhas P Gaels Work Phone: [facility] Work Phone: 06-09-2009 influenza virus vaccine, unspecified formulation Suhas P Kuns Work Phone: [facility] Work Phone: 05-30-2009 novel [id number], preservative-free, injectable Suhas Garrett Work Phone: [facility] Work Phone: 10-19-2007 varicella virus vaccine Belkys Garrett Work Phone: [facility] Work Phone: 06-09-2006 pneumococcal polysaccharide vaccine, 23 valent Suhas Garrett Work Phone: [facility] Work Phone: Payers Date Payer Category Payer Self-pay 2022 Private Health Insurance [id number] 2001 Medicare [id number] 1959 Medicare [id number] 2.1 [id number] 1959 Private Health Insurance [id number] 1936 Unknown [id number] 1936 Unknown [id number] [id number] 1936 Unknown [id number] [id number]. [id number] 1936 Unknown [id number] 1936 Unknown [id number] [id number] 1936 Unknown [id number] [id number]. [id number] Unknown Unknown [id number] Unknown [id number] [id number] Social History Date Type Detail Facility Unknown if ever smoked [employer] Other Start: 06-19-2023 Sex Assigned At [facility] [employer] Other Start: 06-19-2023 Caffeine use Caffeine use [facility] Work Phone: Start: 06-19-2023 Tobacco smoking status NHIS Never smoked tobacco [facility] Work Phone: Start: 06-19-2023 Tobacco use and exposure Smokeless tobacco non-user [facility] Work Phone: Start: 1935 [facility] Start: 06-09-2023 End: 06-19-2023 Exposure to SARS-CoV-2 (event) Not sure [facility] Clinical Notes 02-15-2015 to 07-18-2023 Note Date & Type Note Facility 07-18-2023 Evaluation note Encounter Date Diagnosis Assessment Notes Jul, PMR (polymya lgia rheumati ca) (ICD-10 - M35.3) [employer] Other 02-06-2024 Evaluation note* Encounter Date Diagnosis Assessment Notes Treatment Notes Treatment Clinical Notes Jul, PMR (polymyalgia rheumatica) (ICD-10 - M35.3) [employer] Other 02-01-2024 Evaluation note* Encounter Date Diagnosis Assessment Notes Treatment Notes Treatment Clinical Notes Jul, Hypothyroidism (ICD-10 - E03.9) [employer] Other 01-29-2024 Evaluation note* Encounter Date Diagnosis Assessment Notes Treatment Notes Treatment Clinical Notes Jun, Hypothyroidism (ICD- 10 - E03.9) Jun, Hyperthyroidism (ICD-10 - E05.90) [employer] Other 01-26-2024 Evaluation note* Encounter Date Diagnosis Assessment Notes Treatment Notes Treatment Clinical Notes Jun, PMR (polymyalgia rheumatica) (ICD-10 - M35.3) I feel that patient is experiencing PMR flare up/exacerbation. She has been on a low dose of prednisone for several weeks prior to this episode. Labs were obtained today. We discussed with patient and daughter in law treating the PMR disease itself with prednisone vs symptom control with pain medications in combination with eachother. Also discussed supervisor intermediates steriod use in regards to her condition. With that being said I recommended that the patient increase her prednisone to 20mg over the next week then she will decrease to 10mg for another week, then maintain on 5mg thereafter. Will provide Tramadol for pain. Will call her with lab results next week, otherwise will see her back in August for re-evaluation unless she requires sooner she is welcome to call. [employer] Other 01-11-2024 Evaluation note* Encounter Date Diagnosis Assessment Notes Treatment Notes Treatment Clinical Notes Jun, PMR (polymyalgia rheumatica) (ICD-10 - M35.3) [employer] Other 01-11-2024 History of Present illness Narrative* Shy Wolf MD - 06/19/2023 11:00 AM EST Subjective Lavonne Villatoro is a 87 y.o. female Chief Complaint Follow-up HPI Patient is in the office for follow-up for the problems noted below. She remains without any symptoms of chest pain dyspnea or syncope. Last echocardiogram in February 2023 revealed moderate aortic stenosis. She is scheduled to have blood work in July her last blood work from last year was July was reviewed with no areas of concern. She has polymyalgia rheumatica for which she is on steroid chronically. Her vital signs were normal examination is remarkable for loud aortic stenosis murmur. The rest of examination was unremarkable. ASSESSMENT AND PLAN: 1. Hypertension, multiple medication, currently under control, no changes are needed. 2. Hyperlipidemia, being managed with diet and lifestyle modifications. 3. Hypothyroidism, on replacement therapy. Followed by PCP 4. Moderate approaching severe aortic stenosis confirmed by echocardiogram February 2023. Remains asymptomatic, this was shared with the patient and annual echocardiogram is scheduled 5. Slight overweight. Patient is aware of it and is working to get her weight further down 6. Polymyalgia rheumatica currently on high-dose steroids. Managed by PCP. The prednisone is being tapered gradually Shy Wolf MD, [facility] Review of Systems All other systems reviewed and are negative. Visit Vitals BP 120/76 (BP Location: Right arm, Patient Position: Sitting) Pulse 60 Ht 1.575 m (5' 2 ) Wt 69.4 kg (153 lb) BMI 27.98 kg/m Smoking Status Never BSA 1.74 m Objective Physical Exam Constitutional: Appearance: Normal appearance. She is normal weight. HENT: Nose: Nose normal. Neck: Vascular: No carotid bruit. Cardiovascular: Rate and Rhythm: Normal rate. Pulses: Normal pulses. Heart sounds: Murmur heard. Systolic murmur is present with a grade of 3/6. Pulmonary: Effort: Pulmonary effort is normal. Abdominal: General: Bowel sounds are normal. Palpations: Abdomen is soft. Genitourinary: Rectum: Normal. Musculoskeletal: General: Normal range of motion. Cervical back: Normal range of motion. Right lower leg: No edema. Left lower leg: No edema. Skin: General: Skin is warm and dry. Neurological: General: No focal deficit present. Mental Status: She is alert. Psychiatric: Mood and Affect: Mood normal. Behavior: Behavior normal. Thought Content: Thought content normal. Judgment: Judgment normal. Current Medications Current Outpatient Medications: amLODIPine (Norvasc) 10 mg tablet, Take 1 tablet (10 mg) by mouth once daily., Disp: , Rfl: aspirin 81 mg EC tablet, Take 1 tablet (81 mg) by mouth., Disp: , Rfl: calcium carbonate 600 mg calcium (1,500 mg) tablet, Take 1 tablet (1,500 mg) by mouth once daily., Disp: , Rfl: carvedilol (Coreg) 6.25 mg tablet, Take 1 tablet (6.25 mg) by mouth 2 times a day with meals., Disp: , Rfl: levothyroxine (Synthroid, Levoxyl) 100 mcg tablet, Take 1 tablet (100 mcg) by mouth once daily., Disp: , Rfl: losartan-hydrochlorothiazide (Hyzaar) 100-12.5 mg tablet, Take 1 tablet by mouth once daily., Disp:, Rfl: multivit-min/ferrous fumarate (MULTI VITAMIN ORAL), Take 1 tablet by mouth once daily., Disp: , Rfl: omega-3 (Fish Oil) 60-90-500 mg capsule, Take 1 capsule (500 mg) by mouth once daily., Disp: , Rfl: predniSONE (Deltasone) 5 mg tablet, Take 1 tablet (5 mg) by mouth once daily. Alternating 2.5 tab, Disp: , Rfl: Assessment/Plan 1. Aortic valve stenosis, etiology of cardiac valve disease unspecified Follow Up In Cardiology Transthoracic Echo (TTE) Complete 2. Essential hypertension 3. Hyperlipidemia, unspecified hyperlipidemia type 4. Never smoked any substance Scribe Attestation By signing my name below, Mai Sparks LPN , Scribe attest that this documentation has been prepared under the direction and in the presence of Shy Wolf MD. [facility] Work Phone: 1(249) 105-983801-11-2024 Instructions* Patient Instructions* Yevgeniy Cortez MA - 06/19/2023 11:00 AM EST Please bring all medicines, vitamins, and herbal supplements with you when you come to the office. Prescriptions will not be filled unless you are compliant with your follow up appointments or have a follow up appointment scheduled as per instruction of your physician. Refills should be requested at the time of your visit. documented in this encounterPro[facility] Work Phone: [phone]) 768-302812-22-2023 Evaluation note* Encounter Date Diagnosis Assessment Notes Treatment Notes Treatment Clinical Notes May, PMR (polymyalgia rheumatica) (ICD-10 - M35.3) Upon discussion, I advised the patient to start taking the predniosne every other day of the 2.5mg. She is to avoid taking ibuprofen, suggested she take two extra strength tylenols in the morning, afternoon and the evening for pain control. We will continue to monitor. May, Essential (primary) hypertension (ICD-10 - I10) The patients blood pressure was WNL upon check in. Therefore, patient is to continue with the above medication regimen. May, Aortic stenosis, moderate (ICD-10 - I35.0) Patient is very leary of getting this procedure. I advised the patient to discuss this with Dr. Wolf. May, Vaccine counseling (ICD-10 - Z71.85) I do recommend the patient get the RSV vaccine. [employer] Other 12-20-2023 Evaluation note* Encounter Date Diagnosis Assessment Notes Treatment Notes Treatment Clinical Notes May, Hypertension (ICD-10 - I10) May, Hypothyroidism (ICD-10 - E03.9) [employer] Other 11-10-2023 Evaluation note* Encounter Date Diagnosis Assessment Notes Treatment Notes Treatment Clinical Notes Apr, PMR (polymyalgia rheumatica) (ICD-10 - M35.3) [employer] Other 09-22-2023 Evaluation note* Encounter Date Diagnosis Assessment Notes Treatment Notes Treatment Clinical Notes Feb, PMR (polymyalgia rheumatica) (ICD-10 - M35.3) She was encouraged to take 2.5mg daily. Patient is agreeable. Feb, Hypertension (ICD-10 - I10) Blood pressure is satisfactory, she is to follow with cardiology as scheduled. [employer] Other 08-21-2023 Evaluation note* Encounter Date Diagnosis Assessment Notes Treatment Notes Treatment Clinical Notes Jan, Hypertension (ICD-10 - I10) [employer] Other 06-30-2023 Evaluation note* Encounter Date Diagnosis Assessment Notes Treatment Notes Treatment Clinical Notes Nov, PMR (polymyalgia rheumatica) (ICD-10 - M35.3) Patient is stable on the 5mg prednisone but I did suggest taking 2.5mg every other day alternating with the 5mg and see how she does. Nov, Hypertension (ICD-10 - I10) Blood pressure is borderline elevated today. She does continue with noticable lower extremity edema which I am very confident this is due to the [facility]. She will see Dr. Wolf in three weeks therefore was advised to make sure she discusses the swelling with him and see what he would like to do. Patient is agreeable. [employer] Other 04-14-2023 Evaluation note* Encounter Date Diagnosis Assessment Notes Treatment Notes Treatment Clinical Notes Sep, Hypertension (ICD-10 - I10) Pt is to continue with the above medications. I did provide her will a refill today. Sep, Insomnia (ICD-10 - G47.00) I encouraged pt to take the above medication about 3 hours before bed to give this medication time to take effect and avoid next day grogginess. Sep, PMR (polymyalgia rheumatica) (ICD-10 - M35.3) Pt has been taking 1.5 tablets of the above medication daily for the last two months. I encouraged her to try to wean down to one tablet daily, and she is agreeable with this. In two months, we will discuss decreasing her dosage again, down to 0.5 tablets daily. We will continue to monitor. [employer] Other 03-08-2023 Evaluation note* Encounter Date Diagnosis Assessment Notes Treatment Notes Treatment Clinical Notes Aug, PMR (polymyalgia rheumatica) (ICD-10 - M35.3) [employer] Other 02-13-2023 Evaluation note* Encounter Date Diagnosis Assessment Notes Treatment Notes Treatment Clinical Notes Jul, Hyperlipidemia (ICD-10 - E78.5) Review of blood work results with the patient today. No signs of anemia or leukemia. Liver enzymes and kidney functions are within jyoti range. Cholesterol levels are mildly elevated although improved compared to previous findings. The patient encourged to continue following with cardioloigst today, a copy of her blood work forwarded today. Jul, PMR (polymyalgia rheumatica) (ICD-10 - M35.3) Upon review of sed rate findings I recommend the patient decrease Prednisone from 10 mg to 7.5 mg daily. The patient instructed several times to take one and half 10 mg tablet daily. I did write the instructions down for her. The patient does not require a refill at this time. We will continue to monitor. Jul, Insomnia (ICD-10 - G47.00) The patient is having difficulty sleeping , states she is up and down all night doing stupid stuff around the house. Discussion was had this is likey secondary to steroid use that we will try to reduce today. OTC Melatoin has been tried and failed. I recommend she try the above medication as needed. Postive and negative side effects and instructions provided. We will continue to monitor. Jul, Hypertension (ICD-10 - I10) Blood pressure findings are within normal range today in the office. The patient complains of bilateral lower extremity edema in the past few days, she does admit to being active painting and cleaning. I suggest she decrease Amlodipine, the patient states she has an upcoming appointment with lining marker and she will discuss making medication changes at that time. [employer] Other 11-09-2022 Evaluation note* Encounter Date Diagnosis Assessment Notes Treatment Notes Treatment Clinical Notes Apr, PMR (polymyalgia rheumatica) (ICD-10 - M35.3) Review of pt's blood work today which reveals normal kidney function, sed rate, glucose, and liver enzymes. She states this PMR causing pain in her lower body is new for her, and she is in a lot of pain without the steroids. Review of pts previous xray which is mostly negative. Pt states she is taking two ibuprofen and a tyleonol twice a day. I recommended pt take one 650mg tylenol twice a day, and one 800mg ibuprofen in the morning. Pt is to finish her 20 mg prednisone, then start 10 mg once a day. She voices understanding and agreement. We will continue to monitor. Apr, Hypertension (ICD-10 - I10) Pt has brought a list of her daily blood pressure readings, which we did review. I advised she can cut Apr, Hyperlipidemia (ICD-10 - E78.5) [employer] Other 11-02-2022 Evaluation note* Encounter Date Diagnosis Assessment Notes Treatment Notes Treatment Clinical Notes Apr, PMR (polymyalgia rheumatica) (ICD-10 - M35.3) [employer] Other 10-26-2022 Evaluation note* Encounter Date Diagnosis Assessment Notes Treatment Notes Treatment Clinical Notes Mar, Lumbar back pain (ICD-10 - M54.50) [employer] Other 09-20-2022 Evaluation note* Encounter Date Diagnosis Assessment Notes Treatment Notes Treatment Clinical Notes Feb, Elevated liver function tests (ICD-10 - R79.89) [employer] Other 09-16-2022 Evaluation note* Encounter Date Diagnosis Assessment Notes Treatment Notes Treatment Clinical Notes Feb, Acute pain of left shoulder (ICD-10 - M25.512) [place] [facility] report reviewed from 02/20/22 . The patient denies any known injury to trigger the acute left shoulder pain.The patient voices tenderness in the left shoulder upon palpation, state it hurts even for her clothes to touch the area. Discussion was had regarding a PMR flare up as she does also report bilateral hip pain. Oral steroid adjustments made today. I advise the patient to monitor her skin for a rash in the tender area , discussion was had regarding shingles. The patient does have a history of shingles and is vaccinated. She may continue using Lidocaine patch Feb, Pain of left scapula (ICD-10 - M89.8X1) Feb, Epigastric pain (ICD-10 - R10.13) The patient advised [place] could be causing her GI upset , encourged to use sparingly. Feb, Lumbar back pain (ICD-10 - M54.50) Feb, PMR (polymyalgia rheumatica) (ICD-10 - M35.3) Blood work ordered to re-evalaute SED rate. I did provide a short burst of steroids today due to increased joint pain. Feb, Osteopenia of multiple sites (ICD-10 - M85.89) Dexa scan reviewed with the patient today noting osteopenia in several areas. We will discuss possibly starting once a month [place] at her next office visit. [employer] Other 09-08-2022 Evaluation note* Encounter Date Diagnosis Assessment Notes Treatment Notes Treatment Clinical Notes Feb, Lumbar back pain (ICD-10 - M54.50) X-ray reviewed with the patient. Her pain is unchanged. I advised her it was okay to take the ibuprofen three times a day. Feb, Hypertension (ICD-10 - I10) Patient has a log of home blood pressures with findings that are WNL. She did have a reading of 105/50 last night stating she was dizzy and lightheaded. Encouraged her to monitor her blood pressure at home and if she continues with dizziness and gets more consistent low readings, she is to call the office. Feb, PMR (polymyalgia rheumatica) (ICD-10 - M35.3) Currently patient is taking 2.5mg prednisone daily and doing well. I would like to continue to wean her down to eventually not take it anymore therefore suggested she take it every other day. She took one today therefore she will not take it tomorrow. Once this runs out, we will see how she does without it. Feb, Dizziness (ICD-10 - R42) I advised patient this could have been due to her lower blood pressure reading. Feb, History of COVID-19 (ICD-10 - Z86.16) Patient tested positive for covid 01/11/2022 and is doing well now. Feb, Post-menopausal (ICD-10 - Z78.0) DEXA scan was ordered. 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 She believes this could be from a fall back in july from a step ladder landing hard on her feet which I advised her it could be. DEXA ordered. Feb, Osteopenia (ICD-10 - M85.80) Noted on Lumbar x-ray. [employer] Other 08-05-2022 Evaluation note* Encounter Date Diagnosis Assessment Notes Treatment Notes Treatment Clinical Notes Jan, COVID-19 (ICD-10 - U07.1) [employer] Other 08-05-2022 Evaluation note* Encounter Date Diagnosis Assessment Notes Treatment Notes Treatment Clinical Notes Jan, Cough (ICD-10 - R05.9) In house covid test is positive. Treatment plan discussed in TE. [employer] Other 07-14-2022 Evaluation note* Encounter Date Diagnosis Assessment Notes Treatment Notes Treatment Clinical Notes Dec, PMR (polymyalgia rheumatica) (ICD-10 - M35.3) [employer] Other 05-27-2022 Evaluation note* Encounter Date Diagnosis Assessment Notes Treatment Notes Treatment Clinical Notes October, PMR (polymyalgia rheumatica) (ICD-10 - M35.3) [employer] Other 04-25-2022 Evaluation note* Encounter Date Diagnosis Assessment Notes Treatment Notes Treatment Clinical Notes Sep, PMR (polymyalgia rheumatica) (ICD-10 - M35.3) The patient encouraged to try and return to alternating 5mg with 7.5 mg tablet every third day as tolerated and may continue applying Voltarn Gel and apply heat as she states heating pad and hot shower help the joint pain. The patient voices understanding and we will continue to monitor. Sep, Insomnia (ICD-10 - G47.00) The patient tried OTC Melatonin 3mg for three weeks with no notable improvement . I suggest she increase the dose to 5mg for two weeks and may even increase to 10 mg if necessary . Discussion was had if she fails the 10 mg Melatonin we can discuss Trazadone. The patient voices understanding. Sep, Heart murmur (ICD-10 - R01.1) The patient encourged to continue following with lining marker annually in December as scheduled. I did forward a copy of most current blood work results . [employer] Other 04-04-2022 Evaluation note* Encounter Date Diagnosis Assessment Notes Treatment Notes Treatment Clinical Notes Sep, PMR (polymyalgia rheumatica) (ICD-10 - M35.3) Sep, Hypertension (ICD-10 - I10) [employer] Other 02-24-2022 Evaluation note* Encounter Date Diagnosis Assessment Notes Treatment Notes Treatment Clinical Notes Jul, PMR (polymyalgia rheumatica) (ICD-10 - M35.3) Weight is stable at this time. I suggest we continue weaning Prednisone down and advise she continue taking 5 mg and alternate with .7.5 mg every third day instead of every other day for one month then if she is doing okay decrease to 5 mg daily. I did provide written and verbal instructions and reviewed the instructions with the patient several times. The patient voices understanding. Discussion was had she could safely drink a glass of wine if she taking Tylenol sparingly. I did provide a handicap placard today that she could use if needed. We will continue to monitor. Jul, Difficulty sleeping (ICD-10 - G47.9) Discussion was had the patient could take OTC Melatonin 3mg one hour before sleep if needed. We will continue to montior. [employer] Other 02-16-2022 Evaluation note* Encounter Date Diagnosis Assessment Notes Treatment Notes Treatment Clinical Notes Jul, PMR (polymyalgia rheumatica) (ICD-10 - M35.3) [employer] Other 11-30-2021 Evaluation note* Encounter Date Diagnosis Assessment Notes Treatment Notes Treatment Clinical Notes Apr, PMR (polymyalgia rheumatica) (ICD-10 - M35.3) [employer] Other 11-18-2021 Evaluation note* Encounter Date Diagnosis Assessment Notes Treatment Notes Treatment Clinical Notes Apr, PMR (polymyalgia rheumatica) (ICD-10 - M35.3) Upon discussion with the patient, she states most days she is doing good but she admits to overdoing it some days with yard work or baking but feels she can try to decrease this. Currently, she is taking 7.5mg. I advised her to take 1.5 tablets two days in a row and on the third day to just take 1 tablet which would be 7.5mg for two days and every third day she will only take 5mg per day. I did provide written instructions for her and advised her to call the office if she has any questions. Patient voiced understanding. We will continue to monitor. Apr, Facial swelling (ICD-10 - R22.0) Patient reports eating popcorn approx two weeks ago and noticed swelling on her right cheek that was painful. I adivsed her it could have been swelling of one of her salivary glands but she admits that it has resolved from ice compresses. I advised her to call the office if this happens again and try to get a picture if she is able. Apr, Hyperlipidemia (ICD-10 - E78.5) Blood work ordered. Apr, Hypothyroidism (ICD-10 - E03.9) Blood work ordered. [employer] Other [id number] History general Narrative - Reported* Type Description Date Medical History Shingles Medical History 02-15-15-mammogram-negativ e Medical History [id number]-dwifnvgtrph-gkerjr, repea t in 3 yrs Medical History 03/2017- colonoscopy- normal Medical History f/u with cardiology [facility] Medical History ECHO 09/2016 Surgical History Appendectomy Surgical History Gallbladder Removal Surgical History Ovarian Cyst Removal Surgical History Coccyx repair Surgical History Cataracts Bilateral Eyes Surgical History thyroidectomy Dr. Forbes 10/14/2019 Hospitalization History Childbirth x5 Hospitalization History See Above [employer] Other Evaluation noteNo InformationNort [employer] Other Evaluation note* Diagnosis Aortic valve stenosis, etiology of cardiac valve disease unspecified Essential hypertension Unspecified essential hypertension Hyperlipidemia, unspecified hyperlipidemia type Never smoked any substance documented in this encounter [facility] Work Phone: Chief Complaint * LAVONNE VILLATORO is being seen for an annual follow-up of. * Patient is in the office for follow-up for the problems noted below and has been noticed to be significantly hypertensive. She has been on high-dose prednisone for the last several months due to polymyalgia rheumatica prescribed by PCP. Her last lab data from several months ago reviewed and discussed with her with no concern noted on my part. She has been compliant medical therapy. Lungs sounded normal card examination is remarkable for a systolic murmur. This is known from 2016 to be caused bytricuspid regurgitation. A follow-up echocardiogram is scheduled. She was also found to have bilateral carotid bruits. Last carotid study from 2019 revealed only mild disease. * ASSESSMENT AND PLAN: * 1. Hypertension, multiple medication, currently not under control, will double amlodipine up to 10 mg daily and follow blood pressure reading in the next few weeks * 2. Hyperlipidemia, being managed with diet and lifestyle modifications. * 3. Hypothyroidism, on replacement therapy. * 4. 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 Follow-up echocardiogram is scheduled, last one was 2016 * 5. Slight overweight. Patient is aware of it and is working to get her weight further down * 6. 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 Polymyalgia rheumatica currently on high-dose steroids. Managed by PCP. The prednisone is being tapered gradually * Shy Wolf MD, FACC * LAVONNE VILLATORO is being seen for hypertension. * Patient is in the office for hypertension management. Since we increased amlodipine up to 10 mg daily her blood pressure is under control. No side effects have been encountered. * LAVONNE VILLATORO is being seen for an annual follow-up of. * Patient is in the office for follow-up for the problems noted below and has been noticed to be significantly hypertensive. She has been on high-dose prednisone for the last several months due to polymyalgia rheumatica prescribed by PCP. Her last lab data from several months ago reviewed and discussed with her with no concern noted on my part. She has been compliant medical therapy. Lungs sounded normal card examination is remarkable for a systolic murmur. This is known from 2017 to be caused bytricuspid regurgitation. A follow-up echocardiogram is scheduled. She was also found to have bilateral carotid bruits. Last carotid study from 2019 revealed only mild disease. * ASSESSMENT AND PLAN: * 1. Hypertension, multiple medication, currently not under control, will double amlodipine up to 10 mg daily and follow blood pressure reading in the next few weeks * 2. Hyperlipidemia, being managed with diet and lifestyle modifications. * 3. Hypothyroidism, on replacement therapy. * 4. 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 Follow-up echocardiogram is scheduled, last one was 2016 * 5. Slight overweight. Patient is aware of it and is working to get her weight further down * 6. 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 Polymyalgia rheumatica currently on high-dose steroids. Managed by PCP. The prednisone is being tapered gradually * Shy Wolf MD, FACC * LAVONNE VILLATORO is being seen for an annual follow-up of. * Patient is in the office for follow-up for the problems noted below. Since her last visit a year ago she had an echocardiogram which demonstrated moderate degree of aortic stenosis. She remains asymptomatic in that regard. Her blood pressure is under control on medical therapy. She developed an intermittent edema in the lower extremity, caused by the amlodipine. Measures to avoid this problem were discussed and explained to the patient. Recent lab data were reviewed with the patient. Her weightis unchanged from previously. She is slightly overweight. She had no syncope orthopnea PND or chestpain on exertion. * ASSESSMENT AND PLAN: * 1. Hypertension, multiple medication, currently under control, no changes are needed. * 2. Hyperlipidemia, being managed with diet and lifestyle modifications. * 3. Hypothyroidism, on replacement therapy. * 4. Moderate aortic stenosis confirmed by echocardiogram February 2022. The velocity measures 336 cm/s, asymptomatic, this was shared with the patient and annual echocardiogram is scheduled * 5. Slight overweight. Patient is aware of it and is working to get her weight further down * 6. Polymyalgia rheumatica currently on high-dose steroids. Managed by PCP. The prednisone is being tapered gradually * Shy Wolf MD, FACC * LAVONNE VILLATORO is being seen for an annual follow-up of. * Patient is in the office for follow-up for the problems noted below. Since her last visit a year ago she had an echocardiogram which demonstrated moderate degree of aortic stenosis. She remains asymptomatic in that regard. Her blood pressure is under control on medical therapy. She developed an intermittent edema in the lower extremity, caused by the amlodipine. Measures to avoid this problem were discussed and explained to the patient. Recent lab data were reviewed with the patient. Her weightis unchanged from previously. She is slightly overweight. She had no syncope orthopnea PND or chestpain on exertion. * ASSESSMENT AND PLAN: * 1. Hypertension, multiple medication, currently under control, no changes are needed. * 2. Hyperlipidemia, being managed with diet and lifestyle modifications. * 3. Hypothyroidism, on replacement therapy. * 4. Moderate aortic stenosis confirmed by echocardiogram February 2022. The velocity measures 336 cm/s, asymptomatic, this was shared with the patient and annual echocardiogram is scheduled * 5. Slight overweight. Patient is aware of it and is working to get her weight further down * 6. Polymyalgia rheumatica currently on high-dose steroids. Managed by PCP. The prednisone is being tapered gradually * Shy Wolf MD, [facility] Family History No Family History Records FoundUnknown Family Member Name Dates Details Family history of angina pec toris: Father(V17.49, Z82.49) Status:Active FH: CABG (coronary artery by pass surgery): Father(V17.3, Z82.49) Status:Active Family history of stent: Sis ter(V19.8, Z84.89) Status:Active Unknown Family Member Name Dates Details Family history of angina pec toris: Father(V17.49, Z82.49) Status:Active FH: CABG (coronary artery by pass surgery): Father(V17.3, Z82.49) Status:Active Family history of stent: Sis ter(V19.8, Z84.89) Status:Active Unknown Family Member Name Dates Details Family history of angina pec toris: Father(V17.49, Z82.49) Status:Active FH: CABG (coronary artery by pass surgery): Father(V17.3, Z82.49) Status:Active Family history of stent: Sis ter(V19.8, Z84.89) Status:Active Unknown Family Member Name Dates Details Family history of angina pec toris: Father(V17.49, Z82.49) Status:Active FH: CABG (coronary artery by pass surgery): Father(V17.3, Z82.49) Status:Active Family history of stent: Sis ter(V19.8, Z84.89) Status:Active Unknown Family Member Name Dates Details Family history of angina pec toris: Father(V17.49, Z82.49) Status:Active FH: CABG (coronary artery by pass surgery): Father(V17.3, Z82.49) Status:Active Family history of stent: Sis ter(V19.8, Z84.89) Status:Active Unknown Family Member Name Dates Details Family history of angina pec toris: Father(V17.49, Z82.49) Status:Active FH: CABG (coronary artery by pass surgery): Father(V17.3, Z82.49) Status:Active Family history of stent: Sis ter(V19.8, Z84.89) Status:Active Summary Purpose Advance Directives No Advanced Directives Records FoundNo Advanced Directives Records FoundNo Advanced Directives Records FoundNo Advanced Directives Records FoundNo Advanced Directives Records FoundNo Advanced Directives Records FoundNo Advanced Directives Records Found Reason for Referral Reason consult and tr eat with Dr.Emily Valverde at [facility] Diagnosis 1 PMR (polymyalgia rhe umatica) (M35.3) Referral Organization [facility] Referring Provider First Name Suhas Referring Provider Last Name Ugo Referring Provider Specialty Family Prac sukhjinder Referred Organization [facility] Ref[place] [address] [place],[address] Referred Provider Specialty Rheumatology Referral Priority Routine General Notes Zaida Tinsley 10:11:01 AM >received today, completed CC referral form and faxed to their referring physicians department. Patient will be contacted by the CC to schedule her appointment. Specialty Diagnoses / Procedures Referred By Contac t Referred To Contact Cardiology Diagnoses Aortic valve stenosis, etiology of cardiac valve disease unspecified Procedures Transthoracic Echo (TTE) Complete ME ECHO TTHRC R-T 2D W/WOM-MODE COMPL SPEC&COLR D Shy Wolf MD [address] [facility], [place] [address] [place] [id number] Referral ID Status Reason Start Date Expiration Date Visits Requested Visits Authorized Pending Review Perform Procedure 06/19/2023 06/18/2024 1 1 Specialty Diagnoses / Procedures Referred By Contac t Referred To Contact Cardiology Diagnoses Aortic valve stenosis, etiology of cardiac valve disease unspecified Procedures Follow Up In Cardiology Shy Wolf MD [address] [facility], [place] [address] [place] [address] Shy Wolf MD [address] [facility], [place] [place] [address] Referral ID Status Reason Start Date Expiration Date V isits Requested Visits Authorized [id number] Authorized 06/19/2023 06/18/2024 1 1 Additional Source Comments REASON FOR VISIT (unrecogniz ed section and content) Reason Comments Follow-up 6m INFORMATION SOURCE (unrecogn ized section and content) DATE CREATED AUTHOR 03/06/2022 [facility] DATE CREATED AUTHOR AUTHOR'S ORGANIZ ATION 12/25/2022 [facility] DATE CREATED AUTHOR AUTHOR'S ORGANIZ ATION 12/25/2022 [facility] DATE CREATED AUTHOR AUTHOR'S ORGANIZ ATION 03/03/2023 [facility] DATE CREATED AUTHOR AUTHOR'S ORGANIZ ATION 06/22/2023 [facility] DATE CREATED AUTHOR AUTHOR'S ORGANIZ ATION 07/18/2023 [facility] DATE CREATED AUTHOR AUTHOR'S ORGANIZ ATION 08/28/2023 [facility] Care Teams (unrecognized sec tion and content) Principal Technical Architect Relationship Specialty Start Date End Date Suhas Garrett DO PCP - General 06/09/99 FOR RECORDS PERTAINING TO PATIENTS WHO ARE OR HAVE BEEN ENROLLED IN A CHEMICAL DEPENDENCY/SUBSTANCEABUSE PROGRAM, SOME INFORMATION MAY BE OMITTED. This clinical summary was aggregated from multiple sources. Caution should be exercised in using it in the provision of clinical care. This summary normalizes information from multiple sources, and as a consequence, information in this document may materially change the coding, format and clinical context of patient data. In addition, data may be omitted in some cases. CLINICAL DECISIONS SHOULD BE BASED ON THE PRIMARY CLINICAL RECORDS. [facility]. provides no warranty or guarantee of the accuracy or completeness of information in this document.
--- NOTE | 2023-08-29 11:21 | XR_ITS ---
The [place] [id number] Patient Name: LAVONNE VILLATORO MRN: [id number] date: 1935 Sex: F Assigned Patient Location: [facility] Current Patient Location: [facility] Accession/Order Number: [id number] Exam Date: 08/29/2023 11:30 Report Date: 09/01/2023 07:39 At the request of: BAILEY REEVES Procedure: XR cervical spine 5V EXAMINATION: XR cervical spine 5V HISTORY: Neck Pain, Shoulder Pain COMPARISON: No relevant comparison available. FINDINGS: BONES: 3 mm anterolisthesis of C3 on C4. Mild degenerative spondylosis. Moderate facet osteoarthropathy DISC SPACES: Mild to moderate multilevel disc space narrowing most significant C5-C6 PARASPINOUS: Negative. No paraspinous abnormality is seen. OTHER: Negative. XR/XR cervical spine 5V IMPRESSION: Mild to moderate degenerative changes most significant C5-C6 3 mm anterolisthesis of C3 on C4 Electronically authenticated by: CHASE ÁLVAREZ Date: 09/01/2023 07:39
--- NOTE | 2023-08-29 11:21 | XR_ITS ---
The [place] [id number] Patient Name: LAVONNE VILLATORO MRN: [id number] date: 1935 Sex: F Assigned Patient Location: [facility] Current Patient Location: [facility] Accession/Order Number: [id number] Exam Date: 08/29/2023 11:30 Report Date: 09/01/2023 07:08 At the request of: VIKYRI GIEDRAITIS Procedure: XR sacrum coccyx min 2V EXAMINATION: XR lumbar spine 6V w bending, XR sacrum coccyx min 2V HISTORY: Back Pain COMPARISON: 08/29/2023 FINDINGS: BONES: 4 mm anterolisthesis of L4 and L5 stable with significant extension and flexion. Mild degenerative spondylosis. Moderate facet osteoarthropathy. Normal appearance of the sacrum and coccyx DISC SPACES: Normal. No significant disc height narrowing, subluxation, or endplate abnormality. PARASPINOUS: Negative. No paraspinous abnormality is seen. OTHER: Interval calcifications in the soft tissues posterior to the sacrum, nonspecific. Moderate amount of stool throughout the colon XR/XR sacrum coccyx min 2V IMPRESSION: 4 mm anterolisthesis of L4 and L5 with no dynamic instability Electronically authenticated by: CHASE ÁLVAREZ Date: 09/01/2023 07:08
--- NOTE | 2023-08-29 11:21 | XR_ITS ---
The [place] [address] Patient Name: LAVONNE VILLATORO MRN: [id number] date: 1935 Sex: F Assigned Patient Location: [facility] Current Patient Location: [facility] Accession/Order Number: [id number] Exam Date: 08/29/2023 11:30 Report Date: 09/01/2023 07:08 At the request of: ANDRI GIEDRAITIS Procedure: XR lumbar spine 6V w bending EXAMINATION: XR lumbar spine 6V w bending, XR sacrum coccyx min 2V HISTORY: Back Pain COMPARISON: 08/29/2023 FINDINGS: BONES: 4 mm anterolisthesis of L4 and L5 stable with significant extension and flexion. Mild degenerative spondylosis. Moderate facet osteoarthropathy. Normal appearance of the sacrum and coccyx DISC SPACES: Normal. No significant disc height narrowing, subluxation, or endplate abnormality. PARASPINOUS: Negative. No paraspinous abnormality is seen. OTHER: Interval calcifications in the soft tissues posterior to the sacrum, nonspecific. Moderate amount of stool throughout the colon XR/XR lumbar spine 6V w bending IMPRESSION: 4 mm anterolisthesis of L4 and L5 with no dynamic instability Electronically authenticated by: CHASE ÁLVAREZ Date: 09/01/2023 07:08
--- NOTE | 2023-08-29 11:21 | XR_ITS ---
[address] [address] Patient Name: LAVONNE VILLATORO MRN: [id number] date: 1935 Sex: F Assigned Patient Location: [facility] Current Patient Location: Accession/Order Number: [id number] Exam Date: 08/29/2023 11:30 Report Date: 09/01/2023 07:05 At the request of: BAILEY BRITORABRODY Procedure: XR shoulder LAILA min 2V EXAMINATION: XR shoulder LAILA min 2V HISTORY: Shoulder Pain COMPARISON: No relevant comparison available. FINDINGS: RIGHT FINDINGS: BONES: No acute fracture or dislocation. Mild acromioclavicular and glenohumeral joint osteoarthropathy with marginal osteophyte formation. SOFT TISSUES: Negative. No visible soft tissue swelling. OTHER: Negative. LEFT FINDINGS: BONES: No acute fracture or dislocation. Mild acromioclavicular and glenohumeral joint osteoarthropathy with marginal osteophyte formation. SOFT TISSUES: Negative. No visible soft tissue swelling. OTHER: Negative. XR/XR shoulder LAILA min 2V IMPRESSION: RIGHT CONCLUSION: Mild osteoarthritis LEFT CONCLUSION: Mild osteoarthritis Electronically authenticated by: CHASE ÁLVAREZ Date: 09/01/2023 07:05
== END 2023-08-29 11:13 | disposition home or self-care (01) ==
LOC: RAD 11:15
PROVIDERS: PCP Family Medicine; Visit Provider Anesthesiology
DX: M54.2 Cervicalgia (principal); M54.50 Low back pain, unspecified; M25.511 Pain in right shoulder; M25.512 Pain in left shoulder
CPT/HCPCS: 72050; 72114; 72220; 73030

== ENCOUNTER 2023-09-08 14:42 | Outpatient (OUT) | payer MEDICARE, OTHER, SELFPAY ==
--- NOTE | 2023-09-08 15:41 | PM.CN ---
Consult Note: HPI Data of Consult Patient: known to practice within the last 3 years Consult date: 09/08/23 Requesting Physician: Norma Jimenez NP Primary Care Provider: Suhas Arizmendi, Consult Narrative Reason for consult: low back, bilateral lower extremity pain Narrative: 88yof who presents for assessment. states that pain radiating down legs has been worse recently. increasing weakness. lumbar XR reviewed, which shows multilevel degeneration and facet arthropathy. continues in series of provider directed home exercises >6 weeks, without benefit. uses tylenol, advil, butrans patch, with some benefit. denies adverse med side effects. cc:: CC: Norma Jimenez NP Review of Systems ROS Status of ROS 10 or more systems reviewed and unremarkable except as noted in history and below PFSH [facility] Medical History (Updated 09/08/23 @ 15:43 by Gloria Weston MD) Polymyalgia rheumatica ?M35.3 - Polymyalgia rheumatica (ICD-10) Hyperthyroidism ?E05.90 - Thyrotoxicosis, unspecified without thyrotoxic crisis or storm (ICD-10) Heart murmur ?R01.1 - Cardiac murmur, unspecified (ICD-10) HTN (hypertension) ?I10 - Essential (primary) hypertension (ICD-10) Surgical History 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 - Postprocedural hypothyroidism (ICD-10) Hx of cholecystectomy ?Z90.49 - Acquired absence of other specified parts of digestive tract (ICD-10) History of ovarian cystectomy ?Z98.890 - Other specified postprocedural states (ICD-10) ?Z87.42 - Personal history of other diseases of the female genital tract (ICD-10) History of appendectomy ?Z90.49 - Acquired absence of other specified parts of digestive tract (ICD-10) Meds Home Medications and Allergies Home Medications ?Medication ?Instructions ?Recorded ?Confirmed ?Type acetaminophen 650 mg 650 mg PO Q8H PRN pain 08/25/23 08/25/23 History tablet,extended release (8 Hour Pain Reliever) amlodipine 10 mg tablet (Norvasc) 10 mg PO DAILY 08/25/23 08/25/23 History aspirin 81 mg capsule 81 mg PO DAILY 08/25/23 08/25/23 History carvedilol 6.25 mg tablet 6.25 mg PO Q12H 08/25/23 08/25/23 History hydrocodone 5 mg-acetaminophen 325 1 tab PO TID PRN pain #90 tabs 08/25/23 Rx mg tablet levothyroxine 100 mcg tablet 100 mcg PO DAILY 08/25/23 08/25/23 History losartan 100 1 tab PO DAILY 08/25/23 08/25/23 History mg-hydrochlorothiazide 12.5 mg tablet multivitamin (Daily Multi-Vitamin 1 tab PO DAILY 08/25/23 08/25/23 History tablet) omega 1-qqs-kpr-fish oil 1,000 mg 1 cap PO DAILY 08/25/23 08/25/23 History (120 mg-180 mg) capsule (Fish Oil) prednisone 5 mg tablet 10 mg PO DAILY 08/25/23 08/25/23 History buprenorphine 5 mcg/hour weekly 1 patch transdermal Q7D #4 ea 09/01/23 Rx transdermal patch (Butrans) buprenorphine 5 mcg/hour weekly 1 patch transdermal Q7D #4 ea 09/01/23 Rx transdermal patch (Butrans) buprenorphine 5 mcg/hour weekly 1 patch transdermal Q7D #4 ea 09/01/23 Rx transdermal patch (Butrans) Allergies Allergy/AdvReac Type Severity Reaction Status Date / Time divalproex sodium Allergy Unknown Verified 06/30/23 09:25 [From Depakote] hydrocodone Allergy Unknown Verified 06/30/23 09:25 phenytoin [From Dilantin] Allergy Unknown Verified 06/30/23 09:25 Exam Narrative Exam Narrative: Psych-alert and oriented x 3. Attentive and appropriate, constitutionally normal, displays normal mood and affect per situation. There are no obvious deficits in memory, reasoning, or intellect.? Skin-no obvious rashes, bruising, erythema noted to the patient's area of pain.? Extremities- extremities are warm with minimal edema and palpable pulses. Lumbar-tenderness to palpation noted in the lumbar spine and paraspinal musculature. Pain is elicited with flexion, extension, and lateral rotation of the lumbar spine. Range of motion is diminished with these motions. Facet loading maneuvers are positive.? Strength-noted to be unremarkable with the exception of decreased strength rated at 4 out of 5 in bilateral quadriceps femoris, anterior tibialis. Sensory-no notable sensory deficits in the bilateral lower extremities to touch or pinprick in all dermatomal distributions with the exception to decreased sensation to the bilateral L3, 4, 5 dermatomal distribution Coordination remains intact.? Gait remains non-antalgic. Assessment and Plan Assessment and Plan (1) Lumbar spondylosis: (2) Lumbar stenosis with neurogenic claudication: Plan 88yof who presents for assessment. worsening low back pain with radiation, as noted. imaging reviewed, as noted. failed conservative measures, as noted. given symptoms and imaging, prudent to obtain lumbar mri without contrast. prescribed valium 10mg for claustrophobia. she is in agreement. meds reviewed, no changes at this time. follow up after mri.
== END 2023-09-08 14:43 | disposition home or self-care (01) ==
LOC: PM 14:43
PROVIDERS: PCP Family Medicine; Visit Provider Nurse Practitioner
DX: M47.816 Spondylosis without myelopathy or radiculopathy, lumbar region (principal); M48.062 Spinal stenosis, lumbar region with neurogenic claudication
CPT/HCPCS: G0463

== ENCOUNTER 2023-09-11 13:07 | Outpatient (OUT) | payer MEDICARE, OTHER, SELFPAY ==
--- NOTE | 2023-09-11 13:16 | MR_ITS ---
The [address] [address] Patient Name: LAVONNE VILLATORO MRN: [id number] date: 1935 Sex: F Assigned Patient Location: MRI Current Patient Location: MRI Accession/Order Number: [id number] Exam Date: 09/11/2023 13:48 Report Date: 09/11/2023 18:01 At the request of: BAILEY REEVES Procedure: MR lumbar spine wo con MR lumbar spine wo con, 09/11/2023 1:48 PM EDT INDICATION: lumbar stenosis, neurogenic claudication COMPARISON: Prior x-ray of lumbar spine dated 08/29/2023 TECHNIQUE: Multiplanar, multisequential MRI images of lumbar spine were obtained without contrast. FINDINGS: For dictation purposes, the lowest complete disc space in the lumbar spine considered as L5-S1. There is normal physiologic lumbar lordosis. Chronic compression fracture of the superior endplate of T11. Otherwise, the vertebral height is preserved. The conus medullaris is at the level of L1. No signal abnormality within the visualized spinal cord is noted. No neural foraminal narrowing or canal stenoses at the level of T12-L1 and L1-L2 is noted. At the level of L2-L3 and L3-4, there are disc bulge with mild left neuroforaminal narrowing and no canal stenosis. At the level of L4-5, there are disc bulge with superimposed left central protrusion with mild bilateral neuroforaminal narrowing and moderate left central canal stenosis. At the level of L5-S1, there are disc bulge with no neuroforaminal narrowing and no canal stenosis. The paraspinal muscles are unremarkable. MR/MR lumbar spine wo con IMPRESSION: Mild degenerative changes of lumbar spine in particular at L4-L5 with superimposed left central protrusion. Electronically authenticated by: RASHIDA DOMINGUEZ Date: 09/11/2023 18:01
--- OUTSIDE RECORDS SUMMARY | 2023-09-11 13:24 | XMS_ITS | CCD ---
Author Organization [facility] Care Team Providers Care Maintainer [employer] Name Role Phone Suhas Garrett Unavailable Suhas [...] Attending Unavailable SUHAS GARRETT Primary Care Unavailable Gloria Weston MD Attending Unavailable Suhas Garrett Primary Care Unavailable Suhas Garrett Admitting Unavailable Suhas Garrett Attending Unavailable Suhas Garrett Primary Care Unavailable Suhas Garrett Admitting Unavailable Suhas Garrett Attending Unavailable Suhas Garrett Admitting Unavailable Suhas Garrett Attending Unavailable Suhas Garrett Primary Care Unavailable Allergies Allergy Classification Reported Allergen(s) Allergy Type Date of Onset Reaction(s) Facility (20 sources) Alendronate; Translations: [Fosamax] Drug Allergy 3 Unknown, Other Hospitals 3 Repository (20 sources) Amoxicillin; Translations: [amoxicillin] Drug Allergy 9 [employer] Other (20 sources) Phenytoin; Translations: [Dilantin CAPS] Drug Allergy [address] [facility] Other (20 sources) Valproate; Translations: [Depakote ER TB24] Drug Allergy Unknown [facility] Other (1 source) Alendronate Drug Allergy [facility] Repository (1 source) Amoxicillin Drug Allergy [facility] Repository (1 source) Phenytoin Drug Allergy [facility] Repository (1 source) Valproate Drug Allergy [facility] Repository (20 sources) Acetaminophen / HYDROcodone Drug Allergy elevated liver enzymes [facility] Other (1 source) Alendronate Drug Allergy 3 [facility] (2 sources) HYDROcodone; Translations: [HYDROCODONE] Drug Allergy 4 [facility] Work Phone: (2 sources) Valproate; Translations: [VALPROIC ACID] Drug Allergy 3 [facility] Work Phone: (1 source) Acetaminophen Drug Allergy 4 [facility] Repository (1 source) Alendronate Drug Allergy 4 [facility] Repository (1 source) Amoxicillin Drug Allergy 4 [facility] Repository (1 source) HYDROcodone Drug Allergy 4 [facility] Repository (1 source) Phenytoin Drug Allergy 4 [facility] Repository (1 source) Valproate Drug Allergy 4 [facility] Repository Medications Current Medications Medication Drug [...] tablet by mouth once daily. 0 Active Kohler 3 1000 MG (20 sources) take 1 capsule by mouth once daily Kohler 3 1000 MG 1 capsule with a meal Orally Once a day Active predniSONE 10 mg oral tablet (20 sources) Start: take 2 tablets by mouth once daily predniSONE 10 MG 2 tablets x 7 days, 1 tablet x 7 days, then 1/2 tablet or 5mg daily thereafter Orally as directed Jun, Active Start: 04-23-2023 take 1 tablet by barb every twenty-four hours predniSONE 20 MG 1 tablet Orally Once a day for 10 days Apr, Active Start: 12-06-2022 take 1 tablet by barb th every other day predniSONE 2.5 MG 1 tablet Orally alternating every other day with 5mg Nov, Active Start: 04-10-2022 take 1 tablet by barb every twenty-four hours predniSONE 2.5 MG 1 tablet Orally Once a day Apr, Active Start: 04-10-2022 take 1 tablet by barb every twenty-four hours predniSONE 10 MG 1 tablet Orally Once a day for 90 days Apr, Active Start: 04-10-2022 take 1 tablet by barb every twenty-four hours predniSONE 20 MG 1 tablet Orally Once a day for 30 day(s) Apr, Active Start: 02-22-2022 predniSONE 20 MG 1 tablet with food or milk Orally 1 tab twice a day x 5 days , 1 tab every day x 5 days for 10 days Feb, Active Start: 01-11-2022 take 1 tablet by barb th at [...] take 1 capsule by mouth once daily Kohler-3 Fish Oil 1000 MG Oral Capsule TAKE [...] 0 Refills: 0 Ordered: 13-Dec-2021 DO Active Kohler 3 500 CAPS (4 sources) Kohler 3 500 CAPS TAKE 1 CAPSULE Daily [...] Coronary arteriosclerosis; 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 [place] coronary artery without angina pectoris] Onset: 09-03-2023 Chronic Disorders of lipid metabolism (20 sources) [...] fracture] Chronic Other aftercare (1 source) Other assisted (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; Translations: [OTH CUSTODIAL CURRENT DRUG THERAPY] Onset: 02-22-2022 Episodic Other [...] sources) Polymyalgia rheumatica; Translations: [Polymyalgia rheumatica] Onset: 04-26-2021 Resolved: 02-22-2022 Chronic Other connective tissue disease (1 source) Other muscle spasm; Translations: [OTHER MUSCLE SPASM] Onset: 02-22-2022 Episodic Other liver diseases (20 sources) Disease of liver; Translations: [Liver disease, unspecified] Chronic Other liver diseases (1 source) Abnormal levels of other serum enzymes; Translations: [Abnormal levels of other serum enzymes] Onset: 09-03-2023 Episodic Other lower respiratory disease (20 sources) Radiologic [...] Facility Complete Blood Count Auto Di ffon 09-03-2023 Basophils (Bld) [#/Vol] 0.0 10*3/uL Normal 0.0-0.2 [facility] Comment on above: Result Comment: PERF ORMED BY: [place] [address] PATHOLOGIST PIPELINE ENGINEER JODY SOLANO M.D. Performed By: #### C MP, TSH3, CBC, T4F #### [place] [address] [place] #### THY AB #### [facility] , Basophils/100 WBC (Bld) 0.7 % Normal . [facility] Comment on above: Performed By: #### C MP, TSH3, CBC, T4F #### [address] #### THY AB #### [facility] , Eosinophils (Bld) [#/Vol] 0.1 10*3/uL Normal 0.0-0.45 [facility] Comment on above: Performed By: #### C MP, TSH3, CBC, T4F #### [address] #### THY AB #### [facility] , Eosinophils/100 WBC (Bld) 1.6 % Normal . [facility] Comment on above: Performed By: #### C MP, TSH3, CBC, T4F #### [address] #### THY AB #### [facility] , Erythrocyte distribution width (RBC) [Ratio] 14.8 % Normal 11.9-15.3 [facility] Comment on above: Performed By: #### C MP, TSH3, CBC, T4F #### [address] #### THY AB #### [facility] , Hematocrit (Bld) [Volume fraction] 39.9 % Normal 34.0-46.4 [facility] Comment on above: Performed By: #### C MP, TSH3, CBC, T4F #### [place] [address] [place] #### THY AB #### [facility] , Hemoglobin (Bld) [Mass/Vol] 13.2 g/dL Normal 11.8-15.4 [facility] Comment on above: Performed By: #### C MP, TSH3, CBC, T4F #### [place] [address] [place] #### THY AB #### [facility] , Lymphocytes (Bld) [#/Vol] 2.6 10*3/uL Normal 1.00-4.8 [facility] Comment on above: Performed By: #### C MP, TSH3, CBC, T4F #### [facility] [address] [place] [address] #### THY AB #### [facility] , Lymphocytes/100 WBC (Bld) 43.5 % Normal . [facility] Comment on above: Performed By: #### C MP, TSH3, CBC, T4F #### [address] #### THY AB #### [facility] , MCH (RBC) [Entitic mass] 33.2 pg Normal 24.7-34.3 [facility] Comment on above: Performed By: #### C MP, TSH3, CBC, T4F #### [address] #### THY AB #### [facility] , MCV (RBC) [Entitic vol] 100.5 fL High 80-100 [facility] Comment on above: Performed By: #### C MP, TSH3, CBC, T4F #### [address] #### THY AB #### [facility] , Mean Corpuscular HGB Conc 33.0 g/dL Normal 32.0-35.0 [facility] Comment on above: Performed By: #### C MP, TSH3, CBC, T4F #### [address] #### THY AB #### [facility] , Monocytes (Bld) [#/Vol] 0.6 10*3/uL Normal 0.0-0.8 [facility] Comment on above: Performed By: #### C MP, TSH3, CBC, T4F #### [place] [address] [place] #### THY AB #### [facility] , Monocytes/100 WBC (Bld) 9.7 % Normal . [facility] Comment on above: Performed By: #### C MP, TSH3, CBC, T4F #### [facility] [address] [place] [address] [place] #### THY AB #### [facility] , Neutrophils (Bld) [#/Vol] 2.7 10*3/uL Normal 1.8-7.7 [facility] Comment on above: Performed By: #### C MP, TSH3, CBC, T4F #### [place] [address] [place] #### THY AB #### [facility] , Neutrophils/100 WBC (Bld) 44.5 % Normal . [facility] Comment on above: Performed By: #### C MP, TSH3, CBC, T4F #### [facility] [address] [place] [address] [place] #### THY AB #### [facility] , NRBC% 0.2 /100{WBC} Normal 0-0.5 [facility] Comment on above: Performed By: #### C MP, TSH3, CBC, T4F #### [address] #### THY AB #### [facility] , Platelet mean volume (Bld) [Entitic vol] 9.2 fL Normal 6.3-10.7 [facility] Comment on above: Performed By: #### C MP, TSH3, CBC, T4F #### [place] [address] [place] #### THY AB #### [facility] , Platelets (Bld) [#/Vol] 229 10*3/uL Normal 150-450 [facility] Comment on above: Performed By: #### C MP, TSH3, CBC, T4F #### [place] [address] [place] #### THY AB #### [facility] , RBC (Bld) [#/Vol] 3.98 10*6/uL Normal 3.60-5.00 [facility] Comment on above: Performed By: #### C MP, TSH3, CBC, T4F #### [facility] [address] [place] [address] #### THY AB #### [facility] , WBC (Bld) [#/Vol] 6.0 10*3/uL Normal 3.8-11.6 [facility] Comment on above: Performed By: #### C MP, TSH3, CBC, T4F #### [address] #### THY AB #### [facility] , Comprehensive Metabolic Pane nory 09-03-2023 Albumin [Mass/Vol] 3.8 g/dL Normal 3.5-5.7 [facility] Comment on above: Performed By: #### C MP, TSH3, CBC, T4F #### [address] #### THY AB #### [facility] , Albumin/Globulin [Mass ratio] 1.7 {ratio} Normal [facility] Comment on above: Performed By: #### C MP, TSH3, CBC, T4F #### [facility] [address] [place] [address] [place] #### THY AB #### [facility] , ALP [Catalytic activity/Vol] 72 U/L Normal 34-104 [facility] Comment on above: Performed By: #### C MP, TSH3, CBC, T4F #### [facility] [address] [place] [address] #### THY AB #### [facility] , ALT [Catalytic activity/Vol] 43 U/L Normal 7-52 [facility] Comment on above: Performed By: #### C MP, TSH3, CBC, T4F #### [facility] [address] [place] [address] #### THY AB #### [facility] , Anion gap [Moles/Vol] 8.9 mmol/L Normal 6.0-15.0 [facility] Comment on above: Performed By: #### C MP, TSH3, CBC, T4F #### [facility] [address] [place] [address] [place] #### THY AB #### [facility] , AST [Catalytic activity/Vol] 23 U/L Normal 13-39 [facility] Comment on above: Performed By: #### C MP, TSH3, CBC, T4F #### [address] #### THY AB #### [facility] , Bilirubin [Mass/Vol] 1.2 mg/dL High 0.3-1.0 [facility] Comment on above: Performed By: #### C MP, TSH3, CBC, T4F #### [facility] [address] [place] [address] #### THY AB #### [facility] , Calcium [Mass/Vol] 9.5 mg/dL Normal 8.6-10.3 [facility] Comment on above: Performed By: #### C MP, TSH3, CBC, T4F #### [facility] [address] [place] [address] [place] #### THY AB #### [facility] , Chloride [Moles/Vol] 107 mmol/L Normal 98-107 [facility] Comment on above: Performed By: #### C MP, TSH3, CBC, T4F #### [facility] [address] [place] [address] [place] #### THY AB #### [facility] , CO2 [Moles/Vol] 30.0 mmol/L Normal 21.0-31.0 [facility] Comment on above: Performed By: #### C MP, TSH3, CBC, T4F #### [facility] [address] [place] [address] [place] #### THY AB #### [facility] , Creatinine [Mass/Vol] 0.76 mg/dL Normal 0.60-1.20 [facility] Comment on above: Performed By: #### C MP, TSH3, CBC, T4F #### [address] #### THY AB #### [facility] , GFR/1.73 sq M.predicted MDRD (S/P/Bld) [Vol rate/Area] mL/min/{1.73_m2} [facility] Comment on above: Performed By: #### C MP, TSH3, CBC, T4F #### [facility] [address] [place] [address] #### THY AB #### [facility] , Globulin (S) [Mass/Vol] 2.2 g/dL Normal [facility] Comment on above: Performed By: #### C MP, TSH3, CBC, T4F #### [address] #### THY AB #### [facility] , Glucose [Mass/Vol] 79 mg/dL Normal 70-100 [facility] Comment on above: Result Comment: [facility] Glucose Reference Range is dependent on time and content of last meal. Glucose of more than 200 mg/dL in a nonstressed, ambulatory subject supports the diagnosis of Diabetes Mellitus. ADA recommended reference range Performed By: #### C MP, TSH3, CBC, T4F #### [place] [address] [place] #### THY AB #### [facility] , Potassium [Moles/Vol] 3.9 mmol/L Normal 3.5-5.1 [facility] Comment on above: Performed By: #### C MP, TSH3, CBC, T4F #### [facility] [address] [place] [address] [place] #### THY AB #### [facility] , Protein [Mass/Vol] 6.0 g/dL Low 6.4-8.9 [facility] Comment on above: Performed By: #### C MP, TSH3, CBC, T4F #### [facility] [address] [place] [address] [place] #### THY AB #### [facility] , Sodium [Moles/Vol] 142 mmol/L Normal 136-145 [facility] Comment on above: Performed By: #### C MP, TSH3, CBC, T4F #### [facility] [address] [place] [address] [place] #### THY AB #### [facility] , Urea nitrogen [Mass/Vol] 22 mg/dL Normal 7-25 [facility] Comment on above: Performed By: #### C MP, TSH3, CBC, T4F #### [facility] [address] [place] [address] [place] #### THY AB #### [facility] , Lipid Panelon 09-03-2023 Cholesterol [Mass/Vol] 243 mg/dL High 140-200 [facility] Comment on above: Result Comment: Chol less than 200 mg/dl low risk Chol 201-239 mg/dl borderline risk Chol 240 mg/dl and greater high risk Performed By: #### C MP, TSH3, CBC, T4F #### [facility] [address] [place] [address] [place] #### THY AB #### [facility] , Cholesterol in HDL [Mass/Vol] 98 mg/dL High 23-92 [facility] Comment on above: Result Comment: HDL CHOL ATP-III CLASSIFICATION Cardiovascular Risk HDL > or equal to 60 mg/dL LOW HDL < 40 mg/dL HIGH Performed By: #### C MP, TSH3, CBC, T4F #### [facility] [address] [place] [address] [place] #### THY AB #### [facility] , Cholesterol.total/Cho lesterol in HDL [Mass ratio] 2.5 {ratio} Normal <5.0 [facility] Comment on above: Performed By: #### C MP, TSH3, CBC, T4F #### [facility] [address] [place] [address] [place] #### THY AB #### [facility] , LDL Cholesterol,Calculate d 121 mg/dL High 0-100 [facility] Comment on above: Result Comment: LDL ATP III CLASSIFICATION LDL less than 100 mg/dL Optimal LDL 100-129 mg/dL Near or above optimal LDL 130-159 mg/dL Borderline high LDL 160-189 mg/dL High LDL greater than 189 mg/dL Very high Performed By: #### C MP, TSH3, CBC, T4F #### [place] [address] [place] #### THY AB #### [facility] , Triglyceride w/Reflex 122 mg/dL Normal 0-149 [facility] Comment on above: Result Comment: TRIG ATP III CLASSIFICATION TRIG less than 150 mg/dL Normal TRIG 150-199 mg/dL Borderline high TRIG 200-500 mg/dL High TRIG greater than 500 mg/dL Very high Standard traceable to the Center for Disease Conrtrol and Prevention (CDC) test method. Performed By: #### C MP, TSH3, CBC, T4F #### [place] [address] [place] #### THY AB #### [facility] , VLDL CHOLESTEROL 24 mg/dL Normal [facility] Comment on above: Performed By: #### C MP, TSH3, CBC, T4F #### [place] [address] [place] #### THY AB #### [facility] , Thyroid Stimulating Hormoneo n 09-03-2023 TSH Qn 4.01 m[IU]/L Normal 0.45-5.33 [facility] Comment on above: Result Comment: PERF ORMED BY: [place] [address] PATHOLOGIST PIPELINE ENGINEER JODY SOLANO M.D. Performed By: #### C MP, TSH3, CBC, T4F #### [facility] [address] [place] [address] [place] #### THY AB #### [facility] , Complete Blood Count Auto Di ffon 07-08-2023 Basophils (Bld) [#/Vol] 0.469266032 10*3/uL Normal 0.0-0.2 10*3/uL [facility] [employer] Other Basophils/100 WBC (Bld) 0.900 % . % [facility] Other Eosinophils (Bld) [#/Vol] 0.109127665 10*3/uL Normal 0.0-0.45 10*3/uL [facility] Other Eosinophils/100 WBC (Bld) 1.100 % . % [facility] Other Erythrocyte distribution width (RBC) [Ratio] 14.000 % Normal 11.9-15.3 % [facility] Other Hematocrit (Bld) [Volume fraction] 37.700 % Normal 34.0-46.4 % [facility] Other Hemoglobin (Bld) [Mass/Vol] 12.251048 g/dL Normal 11.8-15.4 g/dL [facility] Other Lymphocytes (Bld) [#/Vol] 2.552675852 10*3/uL Normal 1.00-4.8 10*3/uL [facility] Other Lymphocytes/100 WBC (Bld) 35.100 % . % [facility] Other MCH (RBC) [Entitic mass] 33.3000 pg Normal 24.7-34.3 pg [facility] Other MCV (RBC) [Entitic vol] 99.7000 fL Normal 80-100 fL [facility] Other Monocytes (Bld) [#/Vol] 0.858125219 10*3/uL Normal 0.0-0.8 10*3/uL [facility] Other Monocytes/100 WBC (Bld) 10.000 % . % [facility] Other Neutrophils (Bld) [#/Vol] 3.209137934 10*3/uL Normal 1.8-7.7 10*3/uL [facility] Other Neutrophils/100 WBC (Bld) 52.900 % . % [facility] Other Platelet mean volume (Bld) [Entitic vol] 9.9000 fL Normal 6.3-10.7 fL [facility] Other WBC (Bld) [#/Vol] 7.632203544 10*3/uL Normal 3.8 -11.6 10*3/uL [facility] Other Complete Blood Count Auto Diff 7.1 10*3/uL Normal 3.8-11.6 10*3/uL [facility] Other Complete Blood Count Auto Diff 33.4 g/dL Normal 32.0-35.0 g/dL [facility] Other Complete Blood Count Auto Diff 0.1 /100{WBC} Normal 0-0.5 /100{WBC} [facility] Other Basophils (Bld) [#/Vol] 0.1 10*3/uL Normal 0.0-0.2 [facility] Comment on above: Order Comment: Reaso n for Exam Hyperthyroidism Result Comment: PERF ORMED BY: [facility] [address] [place] [address] PATHOLOGIST PIPELINE ENGINEER JDOY SOLANO M.D. Performed By: #### C MP, TSH3, CBC, T4F #### [address] #### THY AB #### [facility] , Basophils/100 WBC (Bld) 0.9 % Normal . [facility] Comment on above: Order Comment: Reaso n for Exam Hyperthyroidism Performed By: #### C MP, TSH3, CBC, T4F #### [address] #### THY AB #### [facility] , Eosinophils (Bld) [#/Vol] 0.1 10*3/uL Normal 0.0-0.45 [facility] Comment on above: Order Comment: Reaso n for Exam Hyperthyroidism Performed By: #### C MP, TSH3, CBC, T4F #### [address] #### THY AB #### [facility] , Eosinophils/100 WBC (Bld) 1.1 % Normal . [facility] Comment on above: Order Comment: Reaso n for Exam Hyperthyroidism Performed By: #### C MP, TSH3, CBC, T4F #### [address] #### THY AB #### [facility] , Erythrocyte distribution width (RBC) [Ratio] 14.0 % Normal 11.9-15.3 [facility] Comment on above: Order Comment: Reaso n for Exam Hyperthyroidism Performed By: #### C MP, TSH3, CBC, T4F #### [place] [address] [place] #### THY AB #### [facility] , Hematocrit (Bld) [Volume fraction] 37.7 % Normal 34.0-46.4 [facility] Comment on above: Order Comment: Reaso n for Exam Hyperthyroidism Performed By: #### C MP, TSH3, CBC, T4F #### [facility] [address] [place] [address] [place] #### THY AB #### [facility] , Hemoglobin (Bld) [Mass/Vol] 12.6 g/dL Normal 11.8-15.4 [facility] Comment on above: Order Comment: Reaso n for Exam Hyperthyroidism Performed By: #### C MP, TSH3, CBC, T4F #### [facility] [address] [place] [address] #### THY AB #### [facility] , Lymphocytes (Bld) [#/Vol] 2.5 10*3/uL Normal 1.00-4.8 [facility] Comment on above: Order Comment: Reaso n for Exam Hyperthyroidism Performed By: #### C MP, TSH3, CBC, T4F #### [address] #### THY AB #### [facility] , Lymphocytes/100 WBC (Bld) 35.1 % Normal . [facility] Comment on above: Order Comment: Reaso n for Exam Hyperthyroidism Performed By: #### C MP, TSH3, CBC, T4F #### [address] #### THY AB #### [facility] , MCH (RBC) [Entitic mass] 33.3 pg Normal 24.7-34.3 [facility] Comment on above: Order Comment: Reaso n for Exam Hyperthyroidism Performed By: #### C MP, TSH3, CBC, T4F #### [facility] [address] [place] [address] [place] #### THY AB #### [facility] , MCV (RBC) [Entitic vol] 99.7 fL Normal 80-100 [facility] Comment on above: Order Comment: Reaso n for Exam Hyperthyroidism Performed By: #### C MP, TSH3, CBC, T4F #### [place] [id number] [place] #### THY AB #### [facility] , Mean Corpuscular HGB Conc 33.4 g/dL Normal 32.0-35.0 [facility] Comment on above: Order Comment: Reaso n for Exam Hyperthyroidism Performed By: #### C MP, TSH3, CBC, T4F #### [facility] [address] [place] [address] #### THY AB #### [facility] , Monocytes (Bld) [#/Vol] 0.7 10*3/uL Normal 0.0-0.8 [facility] Comment on above: Order Comment: Reaso n for Exam Hyperthyroidism Performed By: #### C MP, TSH3, CBC, T4F #### [address] #### THY AB #### [facility] , Monocytes/100 WBC (Bld) 10.0 % Normal . [facility] Comment on above: Order Comment: Reaso n for Exam Hyperthyroidism Performed By: #### C MP, TSH3, CBC, T4F #### [facility] [address] [place] [address] #### THY AB #### [facility] , Neutrophils (Bld) [#/Vol] 3.7 10*3/uL Normal 1.8-7.7 [facility] Comment on above: Order Comment: Reaso n for Exam Hyperthyroidism Performed By: #### C MP, TSH3, CBC, T4F #### [facility] [address] [place] [address] [place] #### THY AB #### [facility] , Neutrophils/100 WBC (Bld) 52.9 % Normal . [facility] Comment on above: Order Comment: Reaso n for Exam Hyperthyroidism Performed By: #### C MP, TSH3, CBC, T4F #### [facility] [address] [place] [address] [place] #### THY AB #### [facility] , NRBC% 0.1 /100{WBC} Normal 0-0.5 [facility] Comment on above: Order Comment: Reaso n for Exam Hyperthyroidism Performed By: #### C MP, TSH3, CBC, T4F #### [facility] [address] [place] [address] #### THY AB #### [facility] , Platelet mean volume (Bld) [Entitic vol] 9.9 fL Normal 6.3-10.7 [facility] Comment on above: Order Comment: Reaso n for Exam Hyperthyroidism Performed By: #### C MP, TSH3, CBC, T4F #### [facility] [address] [place] [address] #### THY AB #### [facility] , Platelets (Bld) [#/Vol] 224 10*3/uL Normal 150-450 [facility] [employer] Other Comment on above: Order Comment: Reaso n for Exam Hyperthyroidism Performed By: #### C MP, TSH3, CBC, T4F #### [address] #### THY AB #### [facility] , RBC (Bld) [#/Vol] 3.78 10*6/uL Normal 3.60-5.00 [facility] [employer] Other Comment on above: Order Comment: Reaso n for Exam Hyperthyroidism Performed By: #### C MP, TSH3, CBC, T4F #### [place] [address] [place] #### THY AB #### [facility] , WBC (Bld) [#/Vol] 7.1 10*3/uL Normal 3.8-11.6 [facility] Comment on above: Order Comment: Reaso n for Exam Hyperthyroidism Performed By: #### C MP, TSH3, CBC, T4F #### [facility] [address] [place] [address] #### THY AB #### [facility] , Comprehensive Metabolic Pane nory 07-08-2023 Albumin [Mass/Vol] 3.374951 g/dL Normal 3.5-5.7 g/dL N [facility] [employer] Other Bilirubin [Mass/Vol] 0.0339432 mg/dL Normal 0.3- 1.0 mg/dL [facility] [employer] Other Calcium [Mass/Vol] 9.0152034 mg/dL Normal 8.6-10 .3 mg/dL [facility] Other CO2 [Moles/Vol] 30.52549638 mmol/L Normal 21.0-3 1.0 mmol/L [facility] Other Creatinine [Mass/Vol] 0.10947345 mg/dL Normal 0. 60-1.20 mg/dL [facility] [employer] Other Potassium [Moles/Vol] 3.89301411 mmol/L Normal 3 .5-5.1 mmol/L [facility] Other Protein [Mass/Vol] 6.391307 g/dL Low 6.4-8.9 g/dL N [facility] [employer] Other Comprehensive Metabolic Panel 2.2 g/dL [place] [employer] Other Albumin [Mass/Vol] 3.8 g/dL Normal 3.5-5.7 [facility] Comment on above: Order Comment: Reaso n for Exam Hyperthyroidism Performed By: #### C MP, TSH3, CBC, T4F #### [facility] [address] #### THY AB #### [facility] , Albumin/Globulin [Mass ratio] 1.7 {ratio} Normal [facility] [employer] Other Comment on above: Order Comment: Reaso n for Exam Hyperthyroidism Performed By: #### C MP, TSH3, CBC, T4F #### [facility] [address] [place] [address] [place] #### THY AB #### [facility] , ALP [Catalytic activity/Vol] 140 U/L High 34-104 [facility] [employer] Other Comment on above: Order Comment: Reaso n for Exam Hyperthyroidism Performed By: #### C MP, TSH3, CBC, T4F #### [facility] [address] [place] [address] [place] #### THY AB #### [facility] , ALT [Catalytic activity/Vol] 71 U/L High 7-52 [facility] [employer] Other Comment on above: Order Comment: Reaso n for Exam Hyperthyroidism Performed By: #### C MP, TSH3, CBC, T4F #### [facility] [address] [place] [address] #### THY AB #### [facility] , Anion gap [Moles/Vol] 9.0 mmol/L Normal 6.0-15.0 [facility] Comment on above: Order Comment: Reaso n for Exam Hyperthyroidism Performed By: #### C MP, TSH3, CBC, T4F #### [facility] [address] [place] [address] #### THY AB #### [facility] , AST [Catalytic activity/Vol] 20 U/L Normal 13-39 [facility] [employer] Other Comment on above: Order Comment: Reaso n for Exam Hyperthyroidism Performed By: #### C MP, TSH3, CBC, T4F #### [facility] [address] [place] [address] [place] #### THY AB #### [facility] , Bilirubin [Mass/Vol] 0.7 mg/dL Normal 0.3-1.0 [facility] Comment on above: Order Comment: Reaso n for Exam Hyperthyroidism Performed By: #### C MP, TSH3, CBC, T4F #### [facility] [address] [place] [address] [place] #### THY AB #### [facility] , Calcium [Mass/Vol] 9.4 mg/dL Normal 8.6-10.3 [facility] Comment on above: Order Comment: Reaso n for Exam Hyperthyroidism Performed By: #### C MP, TSH3, CBC, T4F #### [facility] [address] [place] [address] [place] #### THY AB #### [facility] , Chloride [Moles/Vol] 107 mmol/L Normal 98-107 [place] [employer] Other Comment on above: Order Comment: Reaso n for Exam Hyperthyroidism Performed By: #### C MP, TSH3, CBC, T4F #### [facility] [address] [place] [address] #### THY AB #### [facility] , CO2 [Moles/Vol] 30.7 mmol/L Normal 21.0-31.0 [facility] Comment on above: Order Comment: Reaso n for Exam Hyperthyroidism Performed By: #### C MP, TSH3, CBC, T4F #### [facility] [address] [place] [address] #### THY AB #### [facility] , Creatinine [Mass/Vol] 0.76 mg/dL Normal 0.60-1.20 [facility] Comment on above: Order Comment: Reaso n for Exam Hyperthyroidism Performed By: #### C MP, TSH3, CBC, T4F #### [facility] [address] [place] [address] [place] #### THY AB #### [facility] , GFR/1.73 sq M.predicted MDRD (S/P/Bld) [Vol rate/Area] mL/min/{1.73_m2} Normal [place] [employer] Other Comment on above: Order Comment: Reaso n for Exam Hyperthyroidism Performed By: #### C MP, TSH3, CBC, T4F #### [facility] [address] [place] [address] [place] #### THY AB #### [facility] , Globulin (S) [Mass/Vol] 2.2 g/dL Normal [facility] Comment on above: Order Comment: Reaso n for Exam Hyperthyroidism Performed By: #### C MP, TSH3, CBC, T4F #### [facility] [address] [place] [address] [place] #### THY AB #### [facility] , Glucose [Mass/Vol] 89 mg/dL Normal 70-100 [facility] [employer] Other Comment on above: Order Comment: Reaso n for Exam Hyperthyroidism Result Comment: [facility] Glucose Reference Range is dependent on time and content of last meal. Glucose of more than 200 mg/dL in a nonstressed, ambulatory subject supports the diagnosis of Diabetes Mellitus. ADA recommended reference range Performed By: #### C MP, TSH3, CBC, T4F #### [facility] [address] [place] [address] [place] #### THY AB #### [facility] , Potassium [Moles/Vol] 3.7 mmol/L Normal 3.5-5.1 [facility] Comment on above: Order Comment: Reaso n for Exam Hyperthyroidism Performed By: #### C MP, TSH3, CBC, T4F #### [facility] [address] [place] [address] [place] #### THY AB #### [facility] , Protein [Mass/Vol] 6.0 g/dL Low 6.4-8.9 [facility] Comment on above: Order Comment: Reaso n for Exam Hyperthyroidism Performed By: #### C MP, TSH3, CBC, T4F #### [facility] [address] [place] [address] [place] #### THY AB #### [facility] , Sodium [Moles/Vol] 143 mmol/L Normal 136-145 [facility] [facility] [employer] Other Comment on above: Order Comment: Reaso n for Exam Hyperthyroidism Performed By: #### C MP, TSH3, CBC, T4F #### [facility] [address] [place] [address] [place] #### THY AB #### [facility] , Urea nitrogen [Mass/Vol] 21 mg/dL Normal 7-25 [facility] [employer] Other Comment on above: Order Comment: Reaso n for Exam Hyperthyroidism Performed By: #### C MP, TSH3, CBC, T4F #### [facility] [address] [place] [address] [place] #### THY AB #### [facility] , Free T4 (Free Thyroxine)on 0 07-08-2023 Free T4 [Mass/Vol] 1.37153525 ng/dL High 0.61- 1.12 ng/dL [facility] [employer] Other Free T4 [Mass/Vol] 1.46 ng/dL High 0.61-1.12 [facility] Comment on above: Order Comment: Reaso n for Exam Hyperthyroidism Performed By: #### C MP, TSH3, CBC, T4F #### [facility] [address] [place] [address] [place] #### THY AB #### [facility] , Thyroid Antibodies TPO+Tg Ab on 07-08-2023 Thyroid Antibodies TPO+Tg Ab 11 0-34 [facility] [employer] Other Thyroid Antibodies TPO+Tg Ab <1.0 0.0-0.9 [facility] [employer] Other Antithyroglobulin Ab <1.0 Normal 0.0-0.9 [facility] Comment on above: Order Comment: Reaso n for Exam Hyperthyroidism Result Comment: Thyr oglobulin Antibody measured by [employer] Methodology Performed at: - [address] [id number] Shipping And Receiving Assistant: Antonino Belle PhD, Phone: [phone] PERFORMED BY: [place] [address] PATHOLOGIST PIPELINE ENGINEER JODY SOLANO M.D. Performed By: #### C MP, TSH3, CBC, T4F #### [address] #### THY AB #### [facility] , Thyroid Peroxidase Antibodies 11 Normal 0-34 [facility] Comment on above: Order Comment: Reaso n for Exam Hyperthyroidism Performed By: #### C MP, TSH3, CBC, T4F #### [address] #### THY AB #### [facility] , Thyroid Stimulating Hormoneo n 07-08-2023 TSH Qn 2.90176787400 m[IU]/L Normal 0.45-5.33 u[iU]/mL [facility] [employer] Other TSH Qn 2.42 m[IU]/L Normal 0.45-5.33 [facility] Comment on above: Order Comment: Reaso n for Exam Hyperthyroidism Result Comment: PERF ORMED BY: [place] [address] PATHOLOGIST PIPELINE ENGINEER JODY SOLANO M.D. Performed By: #### C MP, TSH3, CBC, T4F #### [address] #### THY AB #### [facility] , AUGUST Antinuclear Antibodieson 07-04-2023 Antinuclear Abs, IFA Positive Critically abnormal . [facility] Comment on above: Result Comment: Nega tive <1:80 Borderline 1:80 Positive >1:80 Speckled cytoplasmic fluorescence is present. The antibodies noted in this pattern may be associated with, but not restricted to, primary biliary cirrhosis (PBC), polymyositis and dermatomyositis (PM/DM), and/or systemic lupus erythematosus (SLE). Performed By: #### C MP, TSH3, CBC, T4F #### [facility] [address] [place] [address] [place] #### THY AB #### [facility] , Homogeneous Pattern 1:160 High . [facility] Comment on above: Result Comment: ICAP nomenclature: [id number] Performed By: #### C MP, TSH3, CBC, T4F #### [facility] [address] [place] [address] [place] #### THY AB #### [facility] , Note 1 Normal . [facility] Comment on above: Result Comment: Lucita marshall Potential Disease Association Homogeneous Systemic Lupus Erythematosus, Drug Induced Systemic Lupus Erythematosus, Chronic Autoimmune hepatitis, Juvenile Idiopathic Arthritis Speckled Sjogren Syndrome, Systemic Lupus Erythematosus, Subacute Cutaneous Lupus, Lupus, Congenital Heart Block, Mixed Connective Tissue Disease, Scleroderma-diffuse, Scleroderma-Autoimmune Myositis Overlap Syndrome, Systemic Lupus Uzvametwlskvp-Hptkmecquqt-Jrxdpfvgkf Myositis Overlap Syndrome, Systemic Autoimmune Rheumatic Disease, [...] Cytopenias, Linear Scleroderma, Antiphospholipid Syndrome Performed at: [place] [address] Shipping And Receiving Assistant: Antonino Belle PhD, Phone: [phone] Performed By: #### C MP, TSH3, CBC, T4F #### [address] #### THY AB #### [facility] , Anti-Streptolysin O Antibody on 07-04-2023 Anti-Streptolysin O Antibody <20.0 Normal 0.0-200.0 [facility] Comment on above: Result Comment: Perf ormed at: [facility] [place] [address] Shipping [employer] Receiving Assistant: Antonino Belle PhD, Phone: [phone] PERFORMED BY: [place] [address] PATHOLOGIST PIPELINE ENGINEER JODY SOLANO M.D. Performed By: #### C MP, TSH3, CBC, T4F #### [place] [address] [place] #### THY AB #### [facility] , C-Reactive Proteinon 024 C-Reactive Protein 0.5 mg/dL Normal 0.0-0.5 [facility] Comment on above: Performed By: #### C MP, MG, CBC, CRP, T4F, TSH3, ESR, URIC #### [facility] [address] [place] [address] #### AUGUST, ASO, RA #### [facility] , Complete Blood Count Auto Di ffon 07-04-2023 Basophils (Bld) [#/Vol] 0.0 10*3/uL Normal 0.0-0.2 [facility] Comment on above: Performed By: #### C MP, TSH3, CBC, T4F #### [address] #### THY AB #### [facility] , Basophils/100 WBC (Bld) 0.6 % Normal . [facility] Comment on above: Performed By: #### C MP, TSH3, CBC, T4F #### [address] #### THY AB #### [facility] , Eosinophils (Bld) [#/Vol] 0.1 10*3/uL Normal 0.0-0.45 [facility] Comment on above: Performed By: #### C MP, TSH3, CBC, T4F #### [place] [address] [place] #### THY AB #### [facility] , Eosinophils/100 WBC (Bld) 0.7 % Normal . [facility] Comment on above: Performed By: #### C MP, TSH3, CBC, T4F #### [place] [address] [place] #### THY AB #### [facility] , Erythrocyte distribution width (RBC) [Ratio] 14.1 % Normal 11.9-15.3 [facility] Comment on above: Performed By: #### C MP, TSH3, CBC, T4F #### [facility] [address] [place] [address] #### THY AB #### [facility] , Hematocrit (Bld) [Volume fraction] 38.8 % Normal 34.0-46.4 [facility] Comment on above: Performed By: #### C MP, TSH3, CBC, T4F #### [address] #### THY AB #### [facility] , Hemoglobin (Bld) [Mass/Vol] 13.4 g/dL Normal 11.8-15.4 [facility] Comment on above: Performed By: #### C MP, TSH3, CBC, T4F #### [address] #### THY AB #### [facility] , Lymphocytes (Bld) [#/Vol] 1.0 10*3/uL Normal 1.00-4.8 [facility] Comment on above: Performed By: #### C MP, TSH3, CBC, T4F #### [address] #### THY AB #### [facility] , Lymphocytes/100 WBC (Bld) 13.9 % Normal . [facility] Comment on above: Performed By: #### C MP, TSH3, CBC, T4F #### [place] [address] [place] #### THY AB #### [facility] , MCH (RBC) [Entitic mass] 33.9 pg Normal 24.7-34.3 [facility] Comment on above: Performed By: #### C MP, TSH3, CBC, T4F #### [place] [address] [place] #### THY AB #### [facility] , MCV (RBC) [Entitic vol] 98.3 fL Normal 80-100 [facility] Comment on above: Performed By: #### C MP, TSH3, CBC, T4F #### [facility] [address] [place] [address] #### THY AB #### [facility] , Mean Corpuscular HGB Conc 34.4 g/dL Normal 32.0-35.0 [facility] Comment on above: Performed By: #### C MP, TSH3, CBC, T4F #### [place] [address] [place] #### THY AB #### [facility] , Monocytes (Bld) [#/Vol] 0.4 10*3/uL Normal 0.0-0.8 [facility] Comment on above: Performed By: #### C MP, TSH3, CBC, T4F #### [place] [address] [place] #### THY AB #### [facility] , Monocytes/100 WBC (Bld) 5.4 % Normal . [facility] Comment on above: Performed By: #### C MP, TSH3, CBC, T4F #### [address] #### THY AB #### [facility] , Neutrophils (Bld) [#/Vol] 5.8 10*3/uL Normal 1.8-7.7 [facility] Comment on above: Performed By: #### C MP, TSH3, CBC, T4F #### [facility] [address] [place] [address] [place] #### THY AB #### [facility] , Neutrophils/100 WBC (Bld) 79.4 % Normal . [facility] Comment on above: Performed By: #### C MP, TSH3, CBC, T4F #### [address] [place] [address] [place] #### THY AB #### [facility] , NRBC% 0.0 /100{WBC} Normal 0-0.5 [facility] Comment on above: Performed By: #### C MP, TSH3, CBC, T4F #### [facility] [address] [place] [address] #### THY AB #### [facility] , Platelet mean volume (Bld) [Entitic vol] 9.6 fL Normal 6.3-10.7 [facility] Comment on above: Performed By: #### C MP, TSH3, CBC, T4F #### [facility] [address] [place] [address] #### THY AB #### [facility] , Platelets (Bld) [#/Vol] 211 10*3/uL Normal 150-450 [facility] Comment on above: Performed By: #### C MP, TSH3, CBC, T4F #### [facility] [address] [place] [address] #### THY AB #### [facility] , RBC (Bld) [#/Vol] 3.95 10*6/uL Normal 3.60-5.00 [facility] Comment on above: Performed By: #### C MP, TSH3, CBC, T4F #### [facility] [address] [place] [address] [place] #### THY AB #### [facility] , WBC (Bld) [#/Vol] 7.3 10*3/uL Normal 3.8-11.6 [facility] Comment on above: Performed By: #### C MP, TSH3, CBC, T4F #### [address] #### THY AB #### [facility] , Comprehensive Metabolic Pane nory 01-26-2024 Albumin [Mass/Vol] 4.2 g/dL Normal 3.5-5.7 [facility] Comment on above: Performed By: #### C MP, MG, CBC, CRP, T4F, TSH3, ESR, URIC #### [facility] [address] [place] [address] #### AUGUST, ASO, RA #### [facility] , Albumin/Globulin [Mass ratio] 1.8 {ratio} Normal [facility] Comment on above: Performed By: #### C MP, MG, CBC, CRP, T4F, TSH3, ESR, URIC #### [facility] [address] [place] [address] [place] #### AUGUST, ASO, RA #### [facility] , ALP [Catalytic activity/Vol] 220 U/L High 34-104 [facility] Comment on above: Performed By: #### C MP, MG, CBC, CRP, T4F, TSH3, ESR, URIC #### [facility] [address] [place] [address] [place] #### AUGUST, ASO, RA #### [facility] , ALT [Catalytic activity/Vol] 181 U/L High 7-52 [facility] Comment on above: Performed By: #### C MP, MG, CBC, CRP, T4F, TSH3, ESR, URIC #### [facility] [address] [place] [address] [place] #### AUGUST, ASO, RA #### [facility] , Anion gap [Moles/Vol] 11.0 mmol/L Normal 6.0-15.0 [facility] Comment on above: Performed By: #### C MP, MG, CBC, CRP, T4F, TSH3, ESR, URIC #### [facility] [address] [place] [address] [place] #### AUGUST, ASO, RA #### [facility] , AST [Catalytic activity/Vol] 56 U/L High 13-39 [facility] Comment on above: Performed By: #### C MP, MG, CBC, CRP, T4F, TSH3, ESR, URIC #### [facility] [address] [place] [address] [place] #### AUGUST, ASO, RA #### [facility] , Bilirubin [Mass/Vol] 1.2 mg/dL High 0.3-1.0 [facility] Comment on above: Performed By: #### C MP, MG, CBC, CRP, T4F, TSH3, ESR, URIC #### [facility] [address] [place] [address] [place] #### AUGUST, ASO, RA #### [facility] , Calcium [Mass/Vol] 10.0 mg/dL Normal 8.6-10.3 [facility] Comment on above: Performed By: #### C MP, MG, CBC, CRP, T4F, TSH3, ESR, URIC #### [facility] [address] [place] [address] [place] #### AUGUST, ASO, RA #### [facility] , Chloride [Moles/Vol] 105 mmol/L Normal 98-107 [facility] Comment on above: Performed By: #### C MP, MG, CBC, CRP, T4F, TSH3, ESR, URIC #### [facility] [address] [place] [address] [place] #### AUGUST, ASO, RA #### [facility] , CO2 [Moles/Vol] 29.8 mmol/L Normal 21.0-31.0 [facility] Comment on above: Performed By: #### C MP, MG, CBC, CRP, T4F, TSH3, ESR, URIC #### [facility] [address] [place] [address] [place] #### AUGUST, ASO, RA #### [facility] , Creatinine [Mass/Vol] 0.68 mg/dL Normal 0.60-1.20 [facility] Comment on above: Performed By: #### C MP, MG, CBC, CRP, T4F, TSH3, ESR, URIC #### [place] [address] [place] #### AUGUST, ASO, RA #### [facility] , GFR/1.73 sq M.predicted MDRD (S/P/Bld) [Vol rate/Area] mL/min/{1.73_m2} [facility] Comment on above: Performed By: #### C MP, MG, CBC, CRP, T4F, TSH3, ESR, URIC #### [place] [address] [place] #### AUGUST, ASO, RA #### [facility] , Globulin (S) [Mass/Vol] 2.4 g/dL [facility] Comment on above: Performed By: #### C MP, MG, CBC, CRP, T4F, TSH3, ESR, URIC #### [place] [address] [place] #### AUGUST, ASO, RA #### [facility] , Glucose [Mass/Vol] 97 mg/dL Normal 70-100 [facility] Comment on above: Result Comment: [facility] Glucose Reference Range is dependent on time and content of last meal. Glucose of more than 200 mg/dL in a nonstressed, ambulatory subject supports the diagnosis of Diabetes Mellitus. ADA recommended reference range Performed By: #### C MP, MG, CBC, CRP, T4F, TSH3, ESR, URIC #### [place] [address] [place] #### AUGUST, ASO, RA #### [facility] , Potassium [Moles/Vol] 3.8 mmol/L Normal 3.5-5.1 [facility] Comment on above: Performed By: #### C MP, MG, CBC, CRP, T4F, TSH3, ESR, URIC #### [place] [address] [place] #### AUGUST, ASO, RA #### [facility] , Protein [Mass/Vol] 6.6 g/dL Normal 6.4-8.9 [facility] Comment on above: Performed By: #### C MP, MG, CBC, CRP, T4F, TSH3, ESR, URIC #### [address] #### AUGUST, ASO, RA #### [facility] , Sodium [Moles/Vol] 142 mmol/L Normal 136-145 [facility] Comment on above: Performed By: #### C MP, MG, CBC, CRP, T4F, TSH3, ESR, URIC #### [facility] [address] [place] [address] #### AUGUST, ASO, RA #### [facility] , Urea nitrogen [Mass/Vol] 19 mg/dL Normal 7-25 [facility] Comment on above: Performed By: #### C MP, MG, CBC, CRP, T4F, TSH3, ESR, URIC #### [facility] [address] [place] [address] #### AUGUST, ASO, RA #### [facility] , Erythrocyte Sedimentation Ra amy 07-04-2023 ESR (Bld) [Velocity] 19 mm/h Normal 0-29 [facility] Comment on above: Result Comment: PERF ORMED BY: [place] [address] PATHOLOGIST PIPELINE ENGINEER JODY SOLANO M.D. Performed By: #### C MP, TSH3, CBC, T4F #### [address] #### THY AB #### [facility] , Free T4 (Free Thyroxine)on 0 07-04-2023 Free T4 [Mass/Vol] 4.05 ng/dL High 0.61-1.12 [facility] Comment on above: Performed By: #### C MP, MG, CBC, CRP, T4F, TSH3, ESR, URIC #### [facility] [address] [place] [address] [place] #### AUGUST, ASO, RA #### [facility] , Magnesiumon 07-04-2023 Magnesium [Mass/Vol] 2.0 mg/dL Normal 1.9-2.7 [facility] Comment on above: Performed By: #### C MP, MG, CBC, CRP, T4F, TSH3, ESR, URIC #### [facility] [address] #### AUGUST, ASO, RA #### [facility] , Rheumatoid Factoron 07-04-19 Rheumatoid Factor 15.3 High <14.0 [facility] Comment on above: Result Comment: Perf ormed at: [facility] [address] [id number] Shipping And Receiving Assistant: Antonino Belle PhD, Phone: [phone] Performed By: #### C MP, TSH3, CBC, T4F #### [address] #### THY AB #### [facility] , Thyroid Stimulating Hormoneo n 07-04-2023 TSH Qn 1.35 m[IU]/L Normal 0.45-5.33 [facility] Comment on above: Result Comment: PERF ORMED BY: [place] [address] PATHOLOGIST PIPELINE ENGINEER JODY SOLANO M.D. Performed By: #### C MP, TSH3, CBC, T4F #### [place] [address] [place] #### THY AB #### [facility] , Uric Acidon 07-04-2023 Urate [Mass/Vol] 4.0 mg/dL Normal 2.3-6.6 [facility] Comment on above: Performed By: #### C MP, MG, CBC, CRP, T4F, TSH3, ESR, URIC #### [facility] [address] #### AUGUST, ASO, RA #### [facility] , Echocardiogramon 02-26-[address], [address] [address] TRANSTHORACIC ECHOCARDIOGRAM REPORT Patient Name: LAVONNE Shruti Physician: [id number] Shy Wolf MD, [facility] Study Date: 02/26/2023 Referring SHY WOLF Physician: MRN/PID: [id number] PCP: Suhas Garrett MD Accession/Order#: [id number] Department [facility] Location: Date of : 1935 Fellow: Gender: F Nurse: Admit Date: Butcher All Round: Sheridan Lemus RDCS, T Height: 157.48 cm CC Report to: Weight: 67.13 kg Study Type: Echocardiogram BSA: 1.68 m2 Blood Pressure: 122 /76 mmHg Diagnosis/ICD: I35.0-Nonrheumatic aortic (valve) stenosis; R01.1-Cardiac murmur, unspecified Indication: HTN, Hyperlipidemia, Overweight, Hypothyroid, Polymyalgia Rheumatica Procedure/CPT: Echo Complete w Full [id number] Study Detail: The following Echo studies were [...] mmHg PIEDV: 2.50 m/s PADP: 28.0 mmHg [id number] Shy Wolf MD, FACC Electronically signed on 03/01/2023 at 2:16:46 PM Final Normal [facility] Office Visit (Cardiology)on 12-24-2022 Follow-up visit Diagnoses/Problems Assessed Aortic stenosis (424.1) (I35.0) Murmur, cardiac (785.2) (R01.1) Essential hypertension (401.9) (I10) Hyperlipidemia (272.4) (E78.5) Overweight with body mass index (BMI) of 27 to 27.9 in adult (278.02,V85.23) (E66.3,Z68.27) Never smoker Hypothyroidism (244.9) (E03.9) PMR (polymyalgia rheumatica) (725) (M35.3) Orders Aortic stenosis, Murmur, cardiac Echocardiogram; Status:Hold For - Scheduling,Retrospec tive Authorization; Requested for:[id number]; Essential hypertension, Hyperlipidemia Changed: From Aspirin EC 81 MG TBEC TAKE 1 TABLET To Aspirin 81 MG Oral Tablet Delayed Release TAKE 1 TABLET DAILY Overweight with body mass index (BMI) of 27 to 27.9 in adult Healthy Weight Tips; Status:Complete - Retrospective Authorization; Done: [id number] Some eating tips that can help you lose weight.; Status:Complete - Retrospective Authorization; Done: [id number] SocHx: Never smoker Tobacco Use Screening; Status:Complete; Done: [id number] Patient Instructions Please bring all medicines, vitamins, [...] is being tapered gradually Shy Wolf MD, [facility] Past Medical History Problems History of Carotid bruit (785.9) (R09.89) Current Meds Medication NameInstruction amLODIPine Besylate 10 MG Oral TabletTAKE 1 TABLET DAILY. Aspirin EC 81 MG TBECTAKE 1 TABLET -W- Calcium 600 MG TABSTAKE 1 TABLET DAILY. Carvedilol 6.25 MG Oral TabletTAKE 1 TABLET TWICE DAILY WITH MEALS. Levothyroxine Sodium 100 MCG Oral TabletTAKE 1 TABLET DAILY. Losartan Potassium-HCTZ 100-12.5 MG Oral TabletTAKE 1 TABLET DAILY. Multi Vitamin Oral TabletTAKE 1 TABLET DAILY. Kohler-3 Fish Oil 1000 MG Oral CapsuleTAKE 1 [...] negative for complaint. Vitals Vital Signs Recorded: [id number] 11:32AM Heart Rate68, R Radial Rfqsdrhf476, RUE, Sitting Oythztixh27, RUE, Sitting Height5 ft 2 in Aiuaut016 lb BMI Ruevdbvzwa78.07 kg/m2 BSA Calculated1.68 Tobacco Useb) No PHQ-2 [...] distress a (more content not included)... Normal [employer] Tobacco Screening.on 023 Adult depression screening assessment No [facility] DO Work Phone: Fall risk assessment a) No falls within the last year [facility] DO Work Phone: Tobacco use status CPHS b) No [facility] DO Work Phone: Complete Blood Count Auto Di ffon 02-22-2022 Basophils (Bld) [#/Vol] [id number] 10*3/uL Normal 0.0-0.2 10*3/uL [facility] Other Basophils/100 WBC (Bld) 0.700 % . % [facility] Other Eosinophils (Bld) [#/Vol] 0.561520506 10*3/uL Normal 0.0-0.45 10*3/uL [facility] Other Eosinophils/100 WBC (Bld) 0.700 % . % [facility] Other Erythrocyte distribution width (RBC) [Ratio] 13.500 % Normal 11.9-15.3 % [facility] Other Hematocrit (Bld) [Volume fraction] 38.400 % Normal 34.0-46.4 % [facility] Other Hemoglobin (Bld) [Mass/Vol] 12.611719 g/dL Normal 11.8-15.4 g/dL [facility] Other Lymphocytes (Bld) [#/Vol] [id number] 10*3/uL Low 1.00-4.8 10*3/uL [facility] Other Lymphocytes/100 WBC (Bld) 12.600 % . % [facility] Other MCH (RBC) [Entitic mass] 33.7000 pg Normal 24.7-34.3 pg [facility] Other MCV (RBC) [Entitic vol] 100.4000 fL High 80-100 fL [facility] Other Monocytes (Bld) [#/Vol] 0.934289800 10*3/uL Normal 0.0-0.8 10*3/uL [facility] Other Monocytes/100 WBC (Bld) 6.800 % . % [facility] Other Neutrophils (Bld) [#/Vol] 5.823751242 10*3/uL Normal 1.8-7.7 10*3/uL [facility] Other Neutrophils/100 WBC (Bld) 79.200 % . % [facility] Other Platelet mean volume (Bld) [Entitic vol] 9.4000 fL Normal 6.3-10.7 fL [facility] Other Platelets (Bld) [#/Vol] 223 10*3/uL Normal 150-450 10*3/uL [facility] Other RBC (Bld) [#/Vol] 3.4868775051 10*6/uL Normal 3. 60-5.00 10*6/uL [facility] Other WBC (Bld) [#/Vol] 6.017214691 10*3/uL Normal 3.8 -11.6 10*3/uL [facility] Other Complete Blood Count Auto Diff 6.6 10*3/uL Normal 4.5-11.0 10*3/uL [facility] Other Complete Blood Count Auto Diff 33.6 g/dL Normal 32.0-35.0 g/dL [facility] Other Complete Blood Count Auto Diff 0.1 % Normal 0-0.5 % [employer] Other Erythrocyte Sedimentation Ra amy 02-22-2022 ESR (Bld) [Velocity] 28 mm/h Normal 0-29 [facility] Other VASC LAB Carotid Artery Dupl ex Ultrasoundon 02-21-2022 US.doppler Carotid arteries [facility] [facility] [place] Work Phone: COVID Quick Testingon 2021 Result Positive [employer] Other Falls Screening (Age 18+)on 12-26-2021 Fall risk assessment a) No falls within the last year [facility] DO Work Phone: Office Visit (Cardiology)on 12-26-2021 Follow-up visit Diagnoses/Problems Assessed Essential hypertension (401.9) (I10) Patient Instructions By signing my name below, ISherin Lpn,Scribe, attest that this documentation has been prepared [...] MG Oral Tablet Delayed ReleaseTAKE 1 TABLET M-W- Calcium 600 MG TABSTAKE 1 TABLET DAILY. Carvedilol 6.25 MG Oral TabletTAKE 1 TABLET TWICE DAILY WITH MEALS. Levothyroxine Sodium 100 MCG Oral TabletTAKE 1 TABLET DAILY. Losartan Potassium-HCTZ 100-12.5 MG Oral TabletTAKE 1 TABLET DAILY. Multi Vitamin Oral TabletTAKE 1 TABLET DAILY. Kohler 3 500 CAPSTAKE 1 CAPSULE Daily predniSONE 5 MG Oral Ijzwco3CN 7.5MG BY MOUTH ONE DAILY ALTERNATING EVERY OTHER DAY Allergies Medication amoxicillin Hives;; Recorded By: Kayla Orr; 10/17/2021 10:50:34 AM Dilantin CAPS Rash; Recorded By: Kayla Orr; 10/17/2021 10:50:34 AM Fosamax eye pain; Recorded By: Kayla Orr; 10/17/2021 10:50:34 AM Depakote ER TB24 Recorded By: Kayla Orr; 10/17/2021 10:50:34 AM Vitals Vital Signs Recorded: [id number] 11:04AMRecorded: [id number] 11:00AM Heart Rate56, R Foybah50, R Radial Ebbnuvcb673, LUE, Drbtxpr975, RUE Avlpmdckb07, LUE, Vjvynyq32, RUE Height5 ft 2 in5 ft 2 in Sgicrc007 lb 143 lb BMI Ixedllhzyk05.16 kg/m226.16 kg/m2 BSA Calculated1.661.66 Falls Screening (Age 18+)a) No falls within the last year Signatures Electronically signed by : Shy Wolf MD; Dec 26 2021 4:02PM EST (Author) Normal [employer] Tobacco Screening.on 022 Adult depression screening assessment No [facility] Work Phone: Fall risk assessment a) No falls within the last year [facility] Work Phone: Tobacco use status CPHS b) No [facility] Work Phone: Vital Signs Date Time Vital Sign Value 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 Facility 07-04-2023 11:15-0500 Body height 157.48 cm Suhas Garrett Other [facility] Other 07-04-2023 11:15-0500 Body mass index (BMI) [Ratio] 28.53 kg/m2 Suhas Garrett Other [facility] Other 07-04-2023 11:15-0500 Body weight 70.76 kg Suhas Ugo Other [facility] Other 07-04-2023 11:15-0500 Diastolic blood pressure 84 mm[Hg] Suhsa Garrett Other [facility] Other 07-04-2023 11:15-0500 Respiratory rate 20 /min Suhas Mayoadan Other [facility] Other 07-04-2023 11:15-0500 SaO2% (BldA) [Mass fraction] 99 % Suhas Ugo Other [facility] Other 07-04-2023 11:15-0500 Systolic blood pressure 150 mm[Hg] Suhas Garrett Other [facility] Other 06-19-2023 11:09-0500 Body height 157.5 cm Shy Wolf MD Work Phone: [facility] 06-19-2023 11:09-0500 Body mass index (BMI) [Ratio] 27.98 kg/m2 Shy Wolf MD Work Phone: [facility] 06-19-2023 11:09-0500 Body weight 69.4 kg Shy Wolf MD Work Phone: [facility] 06-19-2023 11:09-0500 Diastolic blood pressure 76 mm[Hg] Shy Wolf MD Work Phone: [facility] 06-19-2023 11:09-0500 Heart rate 60 /min Shy Wolf MD Work Phone: [facility] 06-19-2023 11:09-0500 Systolic blood pressure 120 mm[Hg] Shy Wolf MD Work Phone: [facility] 05-30-2023 11:00-0500 Body height 157.48 cm Suhas Garrett Other [facility] Other 05-30-2023 11:00-0500 Body mass index (BMI) [Ratio] 27.8 kg/m2 Suhas Garrett Other [facility] Other 05-30-2023 11:00-0500 Body weight 68.95 kg Suhas Garrett Other [facility] Other 05-30-2023 11:00-0500 Diastolic blood pressure 80 mm[Hg] Suhas Garrett Other [facility] Other 05-30-2023 11:00-0500 Respiratory rate 18 /min Suhas Garrett Other [facility] Other 05-30-2023 11:00-0500 SaO2% (BldA) [Mass fraction] 96 % Suhas Garrett Other [facility] Other 05-30-2023 11:00-0500 Systolic blood pressure 122 mm[Hg] Suhas Garrett Other [facility] Other 02-28-2023 10:30-0400 Body height 157.48 cm Suhas Garrett Other [facility] Other 02-28-2023 10:30-0400 Body mass index (BMI) [Ratio] 27.98 kg/m2 Suhas Garrett Other [facility] Other 02-28-2023 10:30-0400 Body weight 69.4 kg Suhas Gaeladan Other [facility] Other 02-28-2023 10:30-0400 Diastolic blood pressure 76 mm[Hg] Suhas Garrett Other [employer] Other 02-28-2023 10:30-0400 Respiratory rate 16 /min Suhas Garrett Other [employer] Other 02-28-2023 10:30-0400 SaO2% (BldA) [Mass fraction] 91 % Suhas Garrett Other [facility] Other 02-28-2023 10:30-0400 Systolic blood pressure 134 mm[Hg] Suhas Garrett Other [facility] Other 12-24-2022 11:32-0400 Body height 157.48 cm Suhas Hoffman Ugo Work Phone: [facility] 250 DO Work Phone: 12-24-2022 11:32-0400 Body mass index (BMI) [Ratio] 27.07 kg/m2 Suhas Hoffman Ugo Work Phone: [facility] DO Work Phone: 12-24-2022 11:32-0400 Body surface area Derived from formula 1.68 m2 Suhas Mayoadan Work Phone: [facility] 250 DO Work Phone: 12-24-2022 11:32-0400 Body weight 67.13 kg Suhas Mayos Work Phone: [facility] DO Work Phone: 12-24-2022 11:32-0400 Diastolic blood pressure 76 mm[Hg] Suhas Garrett Work Phone: [facility] 250 DO Work Phone: 12-24-2022 11:32-0400 Heart rate 68 /min Suhas Garrett Work Phone: [facility] [facility] DO Work Phone: 12-24-2022 11:32-0400 Systolic blood pressure 118 mm[Hg] Suhasraquel Garrett Work Phone: [facility] [employer] 250 DO Work Phone: 12-06-2022 10:30-0400 Body height 157.48 cm Suhas Garrett Other [facility] Other 12-06-2022 10:30-0400 Body mass index (BMI) [Ratio] 27.98 kg/m2 Suhas Garrett Other [facility] Other 12-06-2022 10:30-0400 Body weight 69.4 kg Suhas Garrett Other [facility] Other 12-06-2022 10:30-0400 Diastolic blood pressure 70 mm[Hg] Suhas Garrett Other [facility] Other 12-06-2022 10:30-0400 Respiratory rate 16 /min Suhas Garrett Other [facility] Other 12-06-2022 10:30-0400 SaO2% (BldA) [Mass fraction] 98 % Suhas Garrett Other [facility] Other 12-06-2022 10:30-0400 Systolic blood pressure 146 mm[Hg] Suhas Garrett Other [facility] Other 09-20-2022 11:45-0400 Body height 157.48 cm Suhas Garrett Other [facility] Other 09-20-2022 11:45-0400 Body mass index (BMI) [Ratio] 26.34 kg/m2 Suhas Garrett Other [facility] Other 09-20-2022 11:45-0400 Body weight 65.32 kg Suhas Garrett Other [facility] Other 09-20-2022 11:45-0400 Diastolic blood pressure 70 mm[Hg] Suhas Garrett Other [facility] Other 09-20-2022 11:45-0400 Respiratory rate 16 /min Suhas Garrett Other [facility] Other 09-20-2022 11:45-0400 SaO2% (BldA) [Mass fraction] 98 % Suhas Garrett Other [facility] Other 09-20-2022 11:45-0400 Systolic blood pressure 130 mm[Hg] Suhas Garrett Other [facility] Other 07-22-2022 11:30-0500 Body height 157.48 cm Suhas Garrett Other [facility] Other 07-22-2022 11:30-0500 Body mass index (BMI) [Ratio] 26.85 kg/m2 Suhas Garrett Other [facility] Other 07-22-2022 11:30-0500 Body weight 66.59 kg Suhas Garrett Other [facility] Other 07-22-2022 11:30-0500 Diastolic blood pressure 70 mm[Hg] Suhas Ugo Other [facility] Other 07-22-2022 11:30-0500 Respiratory rate 16 /min Suhas Garrett Other [facility] Other 07-22-2022 11:30-0500 SaO2% (BldA) [Mass fraction] 98 % Suhas Garertt Other [facility] Other 07-22-2022 11:30-0500 Systolic blood pressure 122 mm[Hg] Suhas Garrett Other [facility] Other 04-17-2022 11:45-0500 Body height 157.48 cm Suhas Garrett Other [facility] Other 04-17-2022 11:45-0500 Body mass index (BMI) [Ratio] 26.88 kg/m2 Suhas Garrett Other [facility] Other 04-17-2022 11:45-0500 Body weight 66.68 kg Suhas Garrett Other [facility] Other 04-17-2022 11:45-0500 Diastolic blood pressure 72 mm[Hg] Suhas aGrrett Other [facility] Other 04-17-2022 11:45-0500 Respiratory rate 16 /min Suhas Garrett Other [facility] Other 04-17-2022 11:45-0500 SaO2% (BldA) [Mass fraction] 99 % Suhas Garrett Other [facility] Other 04-17-2022 11:45-0500 Systolic blood pressure 138 mm[Hg] Suhas Garrett Other [facility] Other 02-22-2022 10:15-0400 Body height 157.48 cm Suhas Garrett Other [facility] Other 02-22-2022 10:15-0400 Body mass index (BMI) [Ratio] 27.07 kg/m2 Suhas Garrett Other [facility] Other 02-22-2022 10:15-0400 Body weight 67.13 kg Suhas Garrett Other [facility] Other 02-22-2022 10:15-0400 Diastolic blood pressure 70 mm[Hg] Suhas Garrett Other [facility] Other 02-22-2022 10:15-0400 Respiratory rate 16 /min Suhas Garrett Other [facility] Other 02-22-2022 10:15-0400 SaO2% (BldA) [Mass fraction] 97 % Suhas Garrett Other [facility] Other 02-22-2022 10:15-0400 Systolic blood pressure 122 mm[Hg] Suhas Garrett Other [facility] Other 02-21-2022 10:45-0400 70 1 Suhas Garrett Work Phone: [facility] [id number] [place] Work Phone: Comment on above: [id number] 02-14-2022 15:45-0400 Body height 157.48 cm Suhas Garrett Other [facility] Other 02-14-2022 15:45-0400 Body mass index (BMI) [Ratio] 26.7 kg/m2 Suhas Garrett Other [facility] Other 02-14-2022 15:45-0400 Body weight 66.23 kg Suhas Garrett Other [facility] Other 02-14-2022 15:45-0400 Diastolic blood pressure 72 mm[Hg] Suhas Garrett Other [facility] Other 02-14-2022 15:45-0400 Respiratory rate 16 /min Suhas Garrett Other [facility] Other 02-14-2022 15:45-0400 SaO2% (BldA) [Mass fraction] 96 % Suhas Garrett Other [facility] Other 02-14-2022 15:45-0400 Systolic blood pressure 132 mm[Hg] Suhas Garrett Other [facility] Other 12-26-2021 11:04-0400 Body height 157.48 cm Suhas Garrett Work Phone: [employer] [facility] DO Work Phone: 12-26-2021 11:04-0400 Body mass index (BMI) [Ratio] 26.16 kg/m2 Suhas Garrett Work Phone: [employer] [facility] DO Work Phone: 12-26-2021 11:04-0400 Body surface area Derived from formula 1.66 m2 Suhas Garrett Work Phone: [facility] DO Work Phone: 12-26-2021 11:04-0400 Body weight 64.86 kg Suhas Garrett Work Phone: [facility] [facility] DO Work Phone: 12-26-2021 11:04-0400 Diastolic blood pressure 68 mm[Hg] Suhas Garrett Work Phone: [facility] DO Work Phone: 12-26-2021 11:04-0400 Heart rate 56 /min Suhas Garrett Work Phone: [facility] DO Work Phone: 12-26-2021 11:04-0400 Systolic blood pressure 126 mm[Hg] Suhas Garrett Work Phone: [facility] 250 DO Work Phone: 12-26-2021 11:00-0400 Diastolic blood pressure 70 mm[Hg] Suhas Garrett Work Phone: [facility] 250 DO Work Phone: 12-26-2021 11:00-0400 Systolic blood pressure 130 mm[Hg] Suhas Garrett Work Phone: [facility] DO Work Phone: 12-13-2021 11:39-0400 Diastolic blood pressure 80 mm[Hg] Suhas Garrett Work Phone: [facility] Work Phone: 12-13-2021 11:39-0400 Systolic blood pressure 170 mm[Hg] Suhas Garrett Work Phone: [facility] Work Phone: 12-13-2021 11:22-0400 Diastolic blood pressure 80 mm[Hg] Suhas Garrett Work Phone: [facility] Work Phone: 12-13-2021 11:22-0400 Systolic blood pressure 158 mm[Hg] Suhas Dalton Garrett Work Phone: [facility] Work Phone: 12-13-2021 11:17-0400 Body height 157.48 cm Suhas Mayoadan Work Phone: [facility] Work Phone: 12-13-2021 11:17-0400 Body mass index (BMI) [Ratio] 26.52 kg/m2 Suhas Hoffman Ugo Work Phone: [facility] Work Phone: 12-13-2021 11:17-0400 Body surface area Derived from formula 1.67 m2 Suhas Dalton Garrett Work Phone: [facility] Work Phone: 12-13-2021 11:17-0400 Body weight 65.77 kg Suhas Dalton Garrett Work Phone: [facility] Work Phone: 12-13-2021 11:17-0400 Diastolic blood pressure 80 mm[Hg] Suhas Dalton Garrett Work Phone: [facility] Work Phone: 12-13-2021 11:17-0400 Heart rate 60 /min Suhas Hoffman Ugo Work Phone: [facility] Work Phone: 12-13-2021 11:17-0400 Systolic blood pressure 160 mm[Hg] Suhas Mayoadan Work Phone: [facility] Work Phone: 10-01-2021 13:30-0400 Body height 157.48 cm Suhas Garrett Other [facility] Other 10-01-2021 13:30-0400 Body mass index (BMI) [Ratio] 26.34 kg/m2 Suhas Garrett Other [facility] Other 10-01-2021 13:30-0400 Body weight 65.32 kg Suhas Garrett Other [facility] Other 10-01-2021 13:30-0400 Diastolic blood pressure 72 mm[Hg] Suhas Garrett Other [facility] Other 10-01-2021 13:30-0400 Respiratory rate 18 /min Suhas Mayoadan Other [facility] Other 10-01-2021 13:30-0400 SaO2% (BldA) [Mass fraction] 99 % Suhas Mayoadan Other [facility] Other 10-01-2021 13:30-0400 Systolic blood pressure 130 mm[Hg] Suhas Garrett Other [facility] Other 08-02-2021 13:30-0500 Body height 157.48 cm Suhas Garrett Other [facility] Other 08-02-2021 13:30-0500 Body mass index (BMI) [Ratio] 26.52 kg/m2 Suhas Garrett Other [facility] Other 08-02-2021 13:30-0500 Body weight 65.77 kg Suhas Garrett Other [facility] Other 08-02-2021 13:30-0500 Diastolic blood pressure 70 mm[Hg] Suhasraquel Mayoadan Other [facility] Other 08-02-2021 13:30-0500 Respiratory rate 16 /min Suhas Garrett Other [facility] Other 08-02-2021 13:30-0500 SaO2% (BldA) [Mass fraction] 99 % Suhas Garrett Other [facility] Other 08-02-2021 13:30-0500 Systolic blood pressure 118 mm[Hg] Suhas Garrett Other [facility] Other 04-26-2021 13:30-0500 Body height 157.48 cm Suhas Garrett Other [facility] Other 04-26-2021 13:30-0500 Body mass index (BMI) [Ratio] 25.97 kg/m2 Suhas Garrett Other [facility] Other 04-26-2021 13:30-0500 Body weight 64.41 kg Suhas Garrett Other [facility] Other 04-26-2021 13:30-0500 Diastolic blood pressure 74 mm[Hg] Suhas Garrett Other [facility] Other 04-26-2021 13:30-0500 Respiratory rate 17 /min Suhas Garrett Other [facility] Other 04-26-2021 13:30-0500 SaO2% (BldA) [Mass fraction] 98 % Suhas Garrett Other [facility] Other 04-26-2021 13:30-0500 Systolic blood pressure 120 mm[Hg] Suhas Garrett Other [facility] Other Encounters Encounter Date Encounter Type Care Provider Facility Start: 09-03-2023 End: 09-03-2023 ambulatory Suhas Garrett Facility:[facility] Start: 08-25-2023 End: 08-26-2023 ambulatory Gloria Weston MD Facility: [facility] Start: 07-18-2023 End: 07-18-2023 ambulatory Suhas Garrett Other [facility] Other Start: 07-18-2023 Telephone encounter Suhas Garrett [facility] Start: 07-15-2023 End: 07-15-2023 ambulatory Suhas Garrett Other [facility] Other Start: 07-15-2023 Telephone encounter Suhas Garrett [facility] Start: 07-10-2023 End: 07-10-2023 ambulatory Suhas Garrett Other [facility] Other Start: 07-10-2023 Telephone encounter Suhas Garrett [facility] Start: 07-08-2023 End: 07-08-2023 ambulatory Suhas Garrett Facility:[facility] Start: 07-07-2023 End: 07-07-2023 ambulatory Suhas Garrett Other [facility] Other Start: 07-07-2023 Telephone encounter Suhas Garrett [facility] Start: 07-04-2023 End: 07-04-2023 ambulatory Suhas Mayos [facility] Other Start: 07-04-2023 Office outpatient vi sit 15 minutes Suhasraquel Mayos [facility] Start: 06-19-2023 Telephone encounter Suhas Mayos [facility] Start: 06-19-2023 End: 06-19-2023 ambulatory SHY WOLF [facility] Other Start: 06-19-2023 End: 06-19-2023 Office outpatient visit 25 minutes Shy Wolf MD Work Phone: [facility] Comment on above: Aortic valve stenosi s, etiology of cardiac valve disease unspecified; Essential hypertension; Hyperlipidemia, unspecified hyperlipidemia type; Never smoked any substance Start: 05-30-2023 End: 05-30-2023 ambulatory Suhas Garrett Other [facility] Other Start: 05-30-2023 Office outpatient vi sit 25 minutes Suhas Garrett [facility] Start: 05-28-2023 End: 05-28-2023 ambulatory Suhas Garrett Other [facility] Other Start: 05-28-2023 Telephone encounter Suhas Garrett [facility] Start: 04-23-2023 End: 04-23-2023 ambulatory Suhas Garrett Other [facility] Other Start: 04-23-2023 Telephone encounter Suhas Garrett [facility] Start: 04-18-2023 End: 04-18-2023 ambulatory Suhas Garrett Other [facility] Other Start: 04-18-2023 Telephone encounter Suhas Garrett [facility] Start: 03-02-2023 Chart Update Suhas Garrett Work Phone: [facility] DO Work Phone: Start: 02-28-2023 End: 02-28-2023 ambulatory Suhas Garrett Other [facility] Other Start: 02-28-2023 Office outpatient vi sit 15 minutes Suhas Garrett [facility] Start: 02-26-[address] Suhas rushk Gaels Facility:[id number] Start: 01-27-2023 End: 01-27-2023 ambulatory Suhas Garrett Other [facility] Other Start: 01-27-2023 Telephone encounter Suhas Garrett [facility] Start: 12-24-2022 Office outpatient vi sit 25 minutes Suhas Garrett Work Phone: [facility] 250 DO Work Phone: Start: 12-24-[address] Shy Wolf Facility: Start: 12-06-2022 End: 12-06-2022 ambulatory Suhas Garrett Other [facility] Other Start: 12-06-2022 Office outpatient vi sit 15 minutes Suhasraquel Mayos [facility] Start: 09-20-2022 End: 09-20-2022 ambulatory Suhas Garrett Other [facility] Other Start: 09-20-2022 Office outpatient vi sit 15 minutes Suhasraquel Mayos [facility] Start: 08-14-2022 End: 08-14-2022 ambulatory Suhas Garrett Other [facility] Other Start: 08-14-2022 Telephone encounter Suhas Garrett [facility] Start: 07-22-2022 End: 07-22-2022 ambulatory Suhas Garrett Other [facility] Other Start: 07-22-2022 Office outpatient vi sit 15 minutes Suhasraquel Mayos [facility] Start: 04-17-2022 End: 04-17-2022 ambulatory Suhas Mayos Other [facility] Other Start: 04-17-2022 Office outpatient vi sit 15 minutes Suhasraquel Mayos [facility] Start: 04-10-2022 End: 04-10-2022 ambulatory Suhas Garrett Other [facility] Other Start: 04-10-2022 Telephone encounter Suhasraquel Garrett [facility] Start: 04-03-2022 End: 04-03-2022 ambulatory Suhas Gaeladan Other [facility] Other Start: 04-03-2022 Telephone encounter Suhas Gaeladan [facility] Start: 04-02-2022 End: 04-02-2022 ambulatory Suhas Gaeladan Other [facility] Other Start: 04-02-2022 Telephone encounter Suhas Gaeladan [facility] Start: 02-26-2022 End: 02-26-2022 ambulatory Suhas Mayoadan Other [facility] Other Start: 02-26-2022 Telephone encounter Suhasraquel Garrett [facility] Start: 02-25-2022 End: 02-25-2022 ambulatory Suhas Gaeladan Other [facility] Other Start: 02-25-2022 Telephone encounter Suhasraquel Garrett [facility] Start: 02-22-2022 End: 02-22-2022 ambulatory Suhas Gaeladan Other [facility] Other Start: 02-22-2022 Office outpatient vi sit 25 minutes Suhas Garrett [facility] Start: 02-21-2022 Patient encounter procedure Suhas Garrett Work Phone: [facility] [place] Work Phone: Start: 02-20-2022 End: 02-21-2022 ambulatory MAYO CARBAJAL Facility: Start: 02-14-2022 End: 02-14-2022 ambulatory Suhas Garrett Other [facility] Other Start: 02-14-2022 Office outpatient vi sit 25 minutes Suhas Garrett [facility] Start: 01-11-2022 End: 01-11-2022 ambulatory Suhas Garrett Other [facility] Other Start: 01-11-2022 Nursing evaluation o f patient and report Suhas Garrett [facility] [place] Start: 01-11-2022 Telephone encounter Suhas Garrett [facility] [place] Start: 12-26-2021 Office outpatient vi sit 10 minutes Suhas Garrett Work Phone: [facility] DO Work Phone: Start: 12-26-[address] Suhas Garrett Facility: Start: 12-20-2021 End: 12-20-2021 ambulatory Suhas Garrett Other [facility] Other Start: 12-20-2021 Telephone encounter Suhas Garrett [facility] [place] Start: 12-13-2021 Office outpatient vi sit 25 minutes Suhas Garrett Work Phone: [facility] Work Phone: Start: 11-02-2021 End: 11-02-2021 ambulatory Suhas Garrett Other [facility] Other Start: 11-02-2021 Telephone encounter Suhas Garrett [facility] [place] Start: 10-01-2021 End: 10-01-2021 ambulatory Suhas Garrett Other [facility] Other Start: 10-01-2021 Office outpatient vi sit 15 minutes Suhas Garrtet [facility] [place] Start: 09-10-2021 End: 09-10-2021 ambulatory Suhas Garrett Other [facility] Other Start: 09-10-2021 Telephone encounter Suhas Garrett [facility] [place] Start: 08-20-2021 End: 08-20-2021 ambulatory Suhas Garrett Other [facility] Other Start: 08-20-2021 Telephone encounter Suhas Garrett [facility] [place] Start: 08-02-2021 End: 08-02-2021 ambulatory Suhas Garrett Other [facility] Other Start: 08-02-2021 Office outpatient vi sit 15 minutes Suhas Garrett [facility] [place] Start: 07-25-2021 End: 07-25-2021 ambulatory Suhas Garrett Other [facility] Other Start: 07-25-2021 Telephone encounter Suhas Garrett [facility] [place] Start: 05-08-2021 End: 05-08-2021 ambulatory Suhas Garrett Other [facility] Other Start: 05-08-2021 Telephone encounter Suhas Garrett [facility] Olivia Start: 04-26-2021 End: 04-26-2021 ambulatory Suhas Garrett Other [facility] Other Start: 04-26-2021 Office outpatient vi sit 25 minutes Suhas Garrett [facility] Procedures Date Procedure Procedure Detail 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 [...] DTaP/Tdap/Td Vaccines (2 - Td or Tdap) [facility] Start: 03-16-2024 End: 03-16-2024 Patient encounter procedure 03/16/2024 11:20 AM EDT Office Visit [facility] [address] [place] [address] Shy Wolf MD [address] [place] [address] [facility] Start: 02-11-2024 End: 02-11-2024 Patient encounter procedure 02/11/2024 12:[address] [facility] [address] [place] [address] [facility] Start: 02-08-2024 End: 06-19-2025 [facility] Transthoracic Transthoracic Echo (TTE) Complete Echocardiography Routine Aortic valve stenosis, etiology of cardiac valve disease unspecified Expected: 02/08/2024 (Approximate), Expires: 06/19/2025 [facility] Service Area Work Phone: Comment on above: Expected: 02/08/2024 (Approximate), Expires: 06/19/2025 Start: 06-19-2023 FUV, Provider: Shy Wolf, Status: Pen, Time: 11:00 AM FUV, Provider: Shy Wolf, Status: Pen, Time: 11:00 AM [facility] 250 DO Work Phone: Start: 05-28-2023 COVID-19 Vaccine (5 - Moderna series) COVID-19 Vaccine (5 - Moderna series) [facility] Start: 02-26-2023 ECHO, Provider: SAMUEL [facility] ULTRASOUND [id number], Status: Pen, Time: 10:45 AM ECHO, Provider: SAMUEL [facility]VI ULTRASOUND , Status: Pen, Time: 10:45 AM [facility] 250 DO Work Phone: Start: 12-24-2022 FUV, Provider: Shy Wolf, Status: Pen, Time: 11:20 AM FUV, Provider: Shy Wolf, Status: Pen, Time: 11:20 AM [facility] Work Phone: Start: 02-21-2022 CAROTID, Provider: SAMUEL [facility]VI ULTRASOUND 01,[id number], Status: Pen, Time: 12:30 PM CAROTID, Provider: SAMUEL [facility] ULTRASOUND 01,[id number], Status: Pen, Time: 12:30 PM [facility] Work Phone: Start: 02-21-2022 ECHO, Provider: SAMUEL [facility] ULTRASOUND 01,[id number], Status: Pen, Time: 10:45 AM ECHO, Provider: SAMUEL [facility] ULTRASOUND 01,[id number], Status: Pen, Time: 10:45 AM [facility] Work Phone: Start: 01-17-2022 CAROTID, Provider: SAMUEL [facility] ULTRASOUND 01,[id number], Status: Pen, Time: 2:30 PM CAROTID, Provider: SAMUEL [facility] ULTRASOUND 01,[id number], Status: Pen, Time: 2:30 PM [facility] Work Phone: Start: 01-17-2022 ECHO, Provider: SAMUEL [facility]VI ULTRASOUND 01,[id number], Status: Pen, Time: 1:30 PM ECHO, Provider: SAMUEL [facility] ULTRASOUND 01,[id number], Status: Pen, Time: 1:30 PM [facility] Work Phone: Start: 12-26-2021 NURSEVST, Provider: MAGDA DANIEL FULL ROLL INSPECTOR 1,[id number], Status: Pen, Time: 11:00 AM NURSEVST, Provider: MAGDA DANIEL FULL ROLL INSPECTOR 1,[id number], Status: Pen, Time: 11:00 AM [facility] Work Phone: Start: 1935 Lipid panel Lipid Panel [facility] Start: 03-04-1937 Medicare Annual Wellness Visit Medicare Annual Wellness Visit (AWV) [facility] Start: 1935 Thyroid stimulating hormone measurement TSH Level [facility] Immunizations Immunization Date Immunization Notes Care Provider Raciel camacho 04-17-2022 Moderna COVID-19 Bivalent 50 MCG/0.5ML Intramuscular Suspension Suhas Garrett [facility] DO Work Phone: 03-21-2022 Fluad Quadrivalent 0 .5 ML Intramuscular Prefilled Syringe Suhas Garrett [facility] DO Work Phone: 03-21-2022 influenza, seasonal, injectable Suhas Garrett Other [facility] Other 11-14-2021 Moderna COVID-19 Vaccine 100 MCG/0.5ML Intramuscular Suspension Suhas Garrett Work Phone: [facility] Work Phone: 04-05-2021 Moderna COVID-19 Vaccine 100 MCG/0.5ML Intramuscular Suspension Suhas Garrett Work Phone: [facility] Work Phone: 03-19-2021 influenza, seasonal, injectable Suhas Garrett Other [facility] Other 08-08-2020 Moderna COVID-19 Vaccine 100 MCG/0.5ML Intramuscular Suspension Suhas P Ugo Work Phone: [facility] Work Phone: 07-11-2020 Moderna COVID-19 Vaccine 100 MCG/0.5ML Intramuscular Suspension Suhas P Ugo Work Phone: [facility] Work Phone: 04-28-2020 pneumococcal polysaccharide vaccine, 23 valent Suhas Garrett Other [facility] Other 03-06-2020 Seasonal trivalent influenza vaccine, adjuvanted, preservative free Suhas P Gaels Work Phone: [facility] Work Phone: 03-06-2020 influenza, seasonal, injectable Suhas Mayos Other [facility] Other 02-08-2020 influenza virus vaccine, unspecified formulation Suhas P Kuns Work Phone: [facility] Work Phone: 02-08-2020 influenza, seasonal, injectable Suhas Mayos Other [facility] Other 05-04-2019 zoster vaccine recombinant Suhas Mayos Other [facility] Other 03-09-2019 influenza, high dose seasonal, preservative-free Suhas P Gaels Work Phone: [facility] Work Phone: 03-04-2019 influenza, seasonal, injectable Suhas Mayos Other [facility] Other 02-04-2019 zoster vaccine recombinant Suhas Mayos Other [facility] Other 05-12-2018 tetanus toxoid, redu bety diphtheria toxoid, and acellular pertussis vaccine, adsorbed Suhas Mayos Other [facility] Other 03-16-2018 Seasonal trivalent influenza vaccine, adjuvanted, preservative free Shy Wolf MD Work Phone: [facility] Work Phone: 03-09-2018 influenza virus vaccine, unspecified formulation Suhas P Kuns Work Phone: [facility] Work Phone: 04-09-2017 influenza virus vaccine, unspecified formulation Suhas P Kuns Work Phone: [facility] Work Phone: 03-28-2017 Seasonal trivalent influenza vaccine, adjuvanted, preservative free Suhas P Ugo Work Phone: [facility] Work Phone: 05-23-2016 pneumococcal conjuga te vaccine, 13 valent Suhas Kuns [address] [facility] Other 04-01-2016 Seasonal trivalent influenza vaccine, adjuvanted, preservative free Suhas P Ugo Work Phone: [facility] Work Phone: 03-09-2016 influenza virus vaccine, unspecified formulation Suhas Dalton Garrett Work Phone: [facility] Work Phone: 03-09-2016 pneumococcal conjuga te vaccine, 13 valent Suhas Dlaton Garrett Work Phone: [facility] Work Phone: 04-07-2015 influenza, injectabl e, quadrivalent, contains preservative Suhas P Ugo Work Phone: [facility] Work Phone: 03-09-2015 influenza virus vaccine, unspecified formulation Suhas P Ugo Work Phone: [facility] Work Phone: 04-05-2014 influenza, seasonal, injectable, preservative free Suhas Garrett Work Phone: [facility] Work Phone: 03-09-2014 influenza virus vaccine, whole virus Suhas Garrett Work Phone: [facility] Work Phone: 03-23-2013 influenza, seasonal, injectable Suhas P Ugo Work Phone: [facility] Work Phone: 03-09-2013 influenza virus vaccine, unspecified formulation Suhas P Ugo Work Phone: [facility] Work Phone: 04-14-2012 influenza, injectabl e, quadrivalent, contains preservative Suhas Garrett Other [facility] Other 06-09-2011 influenza virus vaccine, unspecified formulation Suhas Garrett Work Phone: [facility] Work Phone: 06-09-2010 influenza virus vaccine, unspecified formulation Suhas Garrett Work Phone: [facility] Work Phone: 06-09-2009 influenza virus vaccine, unspecified formulation Suhas Garrett Work Phone: [facility] Work Phone: 05-30-2009 novel frcuguoan-[id number], preservative-free, injectable Suhas Garrett Work Phone: [facility] Work Phone: 10-19-2007 varicella virus vaccine Belkys Garrett Work Phone: [facility] Work Phone: 06-09-2006 pneumococcal polysaccharide vaccine, 23 valent Suhas Garrett Work Phone: [facility] Work Phone: Payers Date Payer Category Payer Self-pay 2022 Private Health Insurance [id number] 2001 Medicare MEDICARE MEDICAR E RAILROAD [id number] 2001-Present [address] [place] [address] [id number] 2001 Unknown 1959 Medicare [id number] 1959 Private Health Insurance [id number] 1936 Unknown [id number] 1936 Unknown [id number] 1936 Unknown [id number] 1936 Unknown [id number] 1936 Unknown [id number] 1936 Unknown [id number] Unknown [id number] Unknown [id number] Unknown [id number] Social History Date Type Detail Facility Unknown if ever smoked [facility] Other Start: 06-19-2023 Sex Assigned At N [facility] Other Start: 06-19-2023 Caffeine use Caffeine use [facility] Work Phone: Start: 06-19-2023 Tobacco smoking status AZIS Never smoked tobacco [facility] Work Phone: Start: 06-19-2023 Tobacco use and exposure Smokeless tobacco non-user [facility] Work Phone: Start: 1935 Sex Assigned At Not on file [facility] Work Phone: Start: 06-09-2023 End: 06-19-2023 Exposure to SARS-CoV-2 (event) Not sure [facility] Clinical Notes 02-15-2015 to 07-18-2023 Note Date & Type Note Facility 07-18-2023 Evaluation note Encounter Date Diagnosis Assessment Notes Jul, PMR (polymya lgia rheumati ca) (ICD-10 - M35.3) [facility] Other 02-06-2024 Evaluation note* Encounter Date Diagnosis Assessment Notes Treatment Notes Treatment Clinical Notes Jul, PMR (polymyalgia rheumatica) (ICD-10 - M35.3) [facility] Other 02-01-2024 Evaluation note* Encounter Date Diagnosis Assessment Notes Treatment Notes Treatment Clinical Notes Jul, Hypothyroidism (ICD-10 - E03.9) [facility] Other 01-29-2024 Evaluation note* Encounter Date Diagnosis Assessment Notes Treatment Notes Treatment Clinical Notes Jun, Hypothyroidism (ICD- 10 - E03.9) Jun, Hyperthyroidism (ICD-10 - E05.90) [facility] Other 01-26-2024 Evaluation note* Encounter Date Diagnosis [...] medications in combination with eachother. Also discussed assisted steriod use in regards to her condition. [...] requires sooner she is welcome to call. [facility] Other 01-11-2024 Evaluation note* Encounter Date Diagnosis Assessment Notes Treatment Notes Treatment Clinical Notes Jun, PMR (polymyalgia rheumatica) (ICD-10 - M35.3) [facility] Other 01-11-2024 History of Present illness Narrative* [...] is being tapered gradually Shy Wolf MD, FACC Review of Systems All other systems reviewed [...] of Shy Wolf MD. documented in this [facility] Work Phone: [phone]) 877-940801-11-2024 Instructions* Patient Instructions* Yevgeniy Cortez MA - [...] time of your visit. documented in this [facility] Work Phone: [phone]) 487-294812-22-2023 Evaluation note* Encounter Date Diagnosis Assessment Notes [...] recommend the patient get the RSV vaccine. [facility] Other 12-20-2023 Evaluation note* Encounter Date Diagnosis Assessment Notes Treatment Notes Treatment Clinical Notes May, Hypertension (ICD-10 - I10) May, Hypothyroidism (ICD-10 - E03.9) [facility] Other 11-10-2023 Evaluation note* Encounter Date Diagnosis Assessment Notes Treatment Notes Treatment Clinical Notes Apr, PMR (polymyalgia rheumatica) (ICD-10 - M35.3) [facility] Other 09-22-2023 Evaluation note* Encounter Date Diagnosis Assessment Notes Treatment Notes Treatment Clinical Notes Feb, PMR (polymyalgia rheumatica) (ICD-10 - M35.3) She was encouraged to take 2.5mg daily. Patient is agreeable. Feb, Hypertension (ICD-10 - I10) Blood pressure is satisfactory, she is to follow with cardiology as scheduled. [facility] Other 08-21-2023 Evaluation note* Encounter Date Diagnosis Assessment Notes Treatment Notes Treatment Clinical Notes Jan, Hypertension (ICD-10 - I10) [facility] Other 06-30-2023 Evaluation note* Encounter Date Diagnosis [...] very confident this is due to the Norvas. She will see Dr. Wolf in three weeks therefore was advised to make sure she discusses the swelling with him and see what he would like to do. Patient is agreeable. [facility] Other 04-14-2023 Evaluation note* Encounter Date Diagnosis [...] tablets daily. We will continue to monitor. [facility] Other 03-08-2023 Evaluation note* Encounter Date Diagnosis Assessment Notes Treatment Notes Treatment Clinical Notes Aug, PMR (polymyalgia rheumatica) (ICD-10 - M35.3) [facility] Other 02-13-2023 Evaluation note* Encounter Date Diagnosis [...] states she has an upcoming appointment with wire web worker and she will discuss making medication changes at that time. [facility] Other 11-09-2022 Evaluation note* Encounter Date Diagnosis [...] can cut Apr, Hyperlipidemia (ICD-10 - E78.5) [facility] Other 11-02-2022 Evaluation note* Encounter Date Diagnosis Assessment Notes Treatment Notes Treatment Clinical Notes Apr, PMR (polymyalgia rheumatica) (ICD-10 - M35.3) [facility] Other 10-26-2022 Evaluation note* Encounter Date Diagnosis Assessment Notes Treatment Notes Treatment Clinical Notes Mar, Lumbar back pain (ICD-10 - M54.50) [facility] Other 09-20-2022 Evaluation note* Encounter Date Diagnosis Assessment Notes Treatment Notes Treatment Clinical Notes Feb, Elevated liver function tests (ICD-10 - R79.89) [facility] Other 09-16-2022 Evaluation note* Encounter Date Diagnosis Assessment Notes Treatment Notes Treatment Clinical Notes Feb, Acute pain of left shoulder (ICD-10 - M25.512) [facility] report reviewed from 02/20/22 . The [...] pain (ICD-10 - R10.13) The patient advised [place] could be causing her GI upset , [...] month Boniva at her next office visit. [facility] Other 09-08-2022 Evaluation note* Encounter Date Diagnosis [...] (ICD-10 - M85.80) Noted on Lumbar x-ray. [facility] Other 08-05-2022 Evaluation note* Encounter Date Diagnosis Assessment Notes Treatment Notes Treatment Clinical Notes Jan, COVID-19 (ICD-10 - U07.1) [facility] Other 08-05-2022 Evaluation note* Encounter Date Diagnosis Assessment Notes Treatment Notes Treatment Clinical Notes Jan, Cough (ICD-10 - R05.9) In house covid test is positive. Treatment plan discussed in TE. [facility] Other 07-14-2022 Evaluation note* Encounter Date Diagnosis Assessment Notes Treatment Notes Treatment Clinical Notes Dec, PMR (polymyalgia rheumatica) (ICD-10 - M35.3) [facility] Other 05-27-2022 Evaluation note* Encounter Date Diagnosis Assessment Notes Treatment Notes Treatment Clinical Notes October, PMR (polymyalgia rheumatica) (ICD-10 - M35.3) [facility] Other 04-25-2022 Evaluation note* Encounter Date Diagnosis [...] The patient encourged to continue following with wire web worker annually in December as scheduled. I did forward a copy of most current blood work results . [facility] Other 04-04-2022 Evaluation note* Encounter Date Diagnosis Assessment Notes Treatment Notes Treatment Clinical Notes Sep, PMR (polymyalgia rheumatica) (ICD-10 - M35.3) Sep, Hypertension (ICD-10 - I10) [facility] Other 02-24-2022 Evaluation note* Encounter Date Diagnosis [...] if needed. We will continue to montior. [facility] Other 02-16-2022 Evaluation note* Encounter Date Diagnosis Assessment Notes Treatment Notes Treatment Clinical Notes Jul, PMR (polymyalgia rheumatica) (ICD-10 - M35.3) [facility] Other 11-30-2021 Evaluation note* Encounter Date Diagnosis Assessment Notes Treatment Notes Treatment Clinical Notes Apr, PMR (polymyalgia rheumatica) (ICD-10 - M35.3) [facility] Other 11-18-2021 Evaluation note* Encounter Date Diagnosis [...] Hypothyroidism (ICD-10 - E03.9) Blood work ordered. [facility] Other 09-09-2015 History general Narrative - Reported* Type Description Date Medical History Shingles Medical History 02-15-15-mammogram-negativ e Medical History [id number]-hvkfeeetejt-bawjpe, repea t in 3 yrs Medical History 03/2017- colonoscopy- normal Medical History f/u with cardiology [facility] Medical History ECHO 09/2016 Surgical History Appendectomy Surgical History Gallbladder Removal Surgical History Ovarian Cyst Removal Surgical History Coccyx repair Surgical History Cataracts Bilateral Eyes Surgical History thyroidectomy Dr. Forbes 10/14/2019 Hospitalization History Childbirth x5 Hospitalization History See Above [facility] Other Evaluation noteNo InformationNortShot & [employer] Other Evaluation note* Diagnosis Aortic valve stenosis, etiology of cardiac valve disease unspecified Essential hypertension Unspecified essential hypertension Hyperlipidemia, unspecified hyperlipidemia type Never smoked any substance documented in this encounter [facility] Work Phone: Chief Complaint * LAVONNE VILLATORO [...] The prednisone is being tapered gradually * Syh Wolf MD, FACC * LAVONNENICOLETTE VILLATORO is being seen for an annual [...] being tapered gradually * Shy Wolf MD, [facility] Family History No Family History Records FoundUnknown [...] and tr eat with Dr.Emily Valverde at Diagnosis 1 PMR (polymyalgia rhe umatica) (M35.3) Referral Organization [facility] Family Medicin e Olivia Referring Provider First Name Suhas Referring Provider Last Name Ugo Referring Provider Specialty Family Prac sukhjinder Referred Organization [facility] Referred Address [address], [place],[address] Referred Provider Specialty Rheumatology Referral Priority Routine General Notes Zaida Tinsley 10:11:01 AM >received today, completed referral form and faxed to their referring physicians department. Patient will be contacted by the CC to schedule her appointment. Specialty Diagnoses / Procedures Referred By Contac t Referred To Contact Cardiology Diagnoses Aortic valve stenosis, etiology of cardiac valve disease unspecified Procedures Transthoracic Echo (TTE) Complete [place] ECHO TTHRC R-T 2D W/WOM-MODE COMPL SPEC&COLR D Shy Wolf MD [address] [place] [address] Referral ID Status Reason Start Date Expiration Date Visits Requested Visits Authorized Pending Review Perform Procedure 06/19/2023 06/18/2024 1 1 Specialty Diagnoses / Procedures Referred By Alberto jiménez Referred To Contact Cardiology Diagnoses Aortic valve stenosis, etiology of cardiac valve disease unspecified Procedures Follow Up In Cardiology Shy Wolf MD [address] [place] [address] Shy Wolf MD [address] [place] [address] Referral ID Status Reason Start Date Expiration Date V isits Requested Visits Authorized [id number] Authorized 06/19/2023 06/18/2024 1 1 Additional Source Comments REASON FOR VISIT (unrecogniz ed section and content) Reason Comments Follow-up 6m INFORMATION SOURCE (unrecogn ized section and content) DATE CREATED AUTHOR 03/06/2022 [facility] DATE CREATED AUTHOR AUTHOR'S ORGANIZ ATION 12/25/2022 [facility] DATE CREATED AUTHOR AUTHOR'S ORGANIZ ATION 12/25/2022 [facility] DATE CREATED AUTHOR AUTHOR'S ORGANIZ ATION 03/03/2023 [facility] DATE CREATED AUTHOR AUTHOR'S ORGANIZ ATION 06/22/2023 [facility] DATE CREATED AUTHOR AUTHOR'S ORGANIZ ATION 09/01/2023 [facility] DATE CREATED AUTHOR AUTHOR'S ORGANIZ ATION 09/04/2023 [facility] Care Teams (unrecognized sec tion and content) 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 [facility] [employer] [facility]. provides no warranty or guarantee of the accuracy or completeness of information in this document.
== END 2023-09-11 13:08 | disposition home or self-care (01) ==
LOC: MRI 13:08
PROVIDERS: PCP Family Medicine; Visit Provider Anesthesiology
DX: M48.062 Spinal stenosis, lumbar region with neurogenic claudication (principal); M51.36 Other intervertebral disc degeneration, lumbar region
CPT/HCPCS: 72148

== ENCOUNTER 2023-09-17 12:35 | Outpatient (OUT) | payer MEDICARE, OTHER, SELFPAY ==
--- NOTE | 2023-09-17 13:15 | P.CN_ITS ---
Consult Note: HPI Data of Consult Patient: known to practice within the last 3 years Consult date: 09/08/23 Requesting Physician: Norma Jimenez NP Primary Care Provider: Suhas Arizmendi, Consult Narrative Reason for consult: low back, bilateral lower extremity pain Narrative: 88yof who presents for assessment. states that pain radiating down legs has been worse recently. increasing weakness. lumbar XR reviewed, which shows multilevel degeneration and facet arthropathy. continues in series of provider directed home exercises >6 weeks, without benefit. uses tylenol, advil, butrans patch, with some benefit. denies adverse med side effects. Most recently underwent lumbar MRI, results below. I have reviewed the results with the patient and her daughter. cc:: CC: Norma Jimenez NP Review of Systems ROS Status of ROS 10 or more systems reviewed and unremark able except as noted in history and below Musculoskeletal Reports: back pain and extremity pain PFSH [facility] Medical History (Updated 09/08/23 @ 15:43 by Gloria Weston MD) Polymyalgia rheumatica ?M35.3 - Polymyalgia rheumatica (ICD-10) Hyperthyroidism ?E05.90 - Thyrotoxicosis, unspecified without thyrotoxic crisis or storm (ICD-10) Heart murmur ?R01.1 - Cardiac murmur, unspecified (ICD-10) HTN (hypertension) ?I10 - Essential (primary) hypertension (ICD-10) Surgical History 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 - Postprocedural hypothyroidism (ICD-10) Hx of cholecystectomy ?Z90.49 - Acquired absence of other specified parts of digestive tract (ICD- 10) History of ovarian cystectomy ?Z98.890 - Other specified postprocedural states (ICD-10) ?Z87.42 - Personal history of other diseases of the female genital tract (ICD-10) History of appendectomy ?Z90.49 - Acquired absence of other specified parts of digestive tract (ICD- 10) Meds Home Medications and Allergies Home Medications ?Medication ?Instructions ?Recorded ?Confirmed ?Type acetaminophen 650 mg 650 mg PO Q8H PRN pain 08/25/23 08/25/23 History tablet,extended release (8 Hour Pain Reliever) amlodipine 10 mg tablet (Norvasc) 10 mg PO DAILY 08/25/23 08/25/23 History aspirin 81 mg capsule 81 mg PO DAILY 08/25/23 08/25/23 History carvedilol 6.25 mg tablet 6.25 mg PO Q12H 08/25/23 08/25/23 History hydrocodone 5 mg-acetaminophen 325 1 tab PO TID PRN pain #90 tabs 08/25/23 Rx mg tablet levothyroxine 100 mcg tablet 100 mcg PO DAILY 08/25/23 08/25/23 History losartan 100 1 tab PO DAILY 08/25/23 08/25/23 History mg-hydrochlorothiazide 12.5 mg tablet multivitamin (Daily Multi-Vitamin 1 tab PO DAILY 08/25/23 08/25/23 History tablet) omega 6-qhy-ctn-fish oil 1,000 mg 1 cap PO DAILY 08/25/23 08/25/23 History (120 mg-180 mg) capsule (Fish Oil) prednisone 5 mg tablet 10 mg PO DAILY 08/25/23 08/25/23 History buprenorphine 5 mcg/hour weekly 1 patch transdermal Q7D #4 ea 09/01/23 Rx transdermal patch (Butrans) buprenorphine 5 mcg/hour weekly 1 patch transdermal Q7D #4 ea 09/01/23 Rx transdermal patch (Butrans) buprenorphine 5 mcg/hour weekly 1 patch transdermal Q7D #4 ea 09/01/23 Rx transdermal patch (Butrans) Allergies Allergy/AdvReac Type Severity Reaction Status Date / Time divalproex sodium Allergy Unknown Verified 06/30/23 09:25 [From Depakote] hydrocodone Allergy Unknown Verified 06/30/23 09:25 phenytoin [From Dilantin] Allergy Unknown Verified 06/30/23 09:25 Exam Narrative Exam Narrative: Psych-alert and oriented x 3. Attentive and appropriate, constitutionally normal, displays normal mood and affect per situation. There are no obvious deficits in memory, reasoning, or intellect.? Skin-no obvious rashes, bruising, erythema noted to the patient's area of pain.? Extremities- extremities are warm with minimal edema and palpable pulses. Lumbar-tenderness to palpation noted in the lumbar spine and paraspinal musculature. Pain is elicited with flexion, extension, and lateral rotation of the lumbar spine. Range of motion is diminished with these motions. Facet loading maneuvers are positive.? Strength-noted to be unremarkable with the exception of decreased strength rated at 4 out of 5 in bilateral quadriceps femoris, anterior tibialis. Sensory-no notable sensory deficits in the bilateral lower extremities to touch or pinprick in all dermatomal distributions with the exception to decreased sensation to the bilateral L4,5,S1 dermatomal distribution Coordination remains intact.? Gait remains non-antalgic. Constitutional Documenting provider has reviewed patient's vital signs: yes Common normals: no apparent distress, oriented x3, healthy appearing, alert and well nourished General appearance: cooperative HENMT Common normals: normocephalic, hearing grossly normal bilaterally and moist oral mucous membranes Head and scalp: normocephalic Eye Common normals: PERRL Pupil: PERRL Neck & C-Spine Common normals: full ROM General: normal visual inspection Chest Common normals: inspection of chest normal Respiratory Common normals: normal respiratory effort, no retractions and no use of accessory muscles Back & Pelvis Lumbar spine/lower back: straight leg raise positive left Other: per patient pain radiates down left posterior leg and lateral leg consistent with L4, 5, S1 pattern Neuro Common normals: oriented x3, CN's II-XII intact bilaterally, moves all extremities, no focal motor deficits, no sensory deficits noted and deep tendon reflexes 2+ bilaterally Sensorium/orientation: alert Motor exam: strength 5/5 throughout and no movement abnormalities noted Psych Common normals: mental status grossly normal, thought process normal, cooperative, affect normal, speech normal and activity/motor behavior normal Speech: normal speech Thought process: normal thought process Results Imaging lumbar mri: Attestation: I have reviewed the pertinent imaging results. Radiologist's impression: No neural foraminal narrowing or canal stenoses at the level of T12-L1 and L1-L2 is noted. At the level of L2-L3 and L3-4, there are disc bulge with mild left neuroforaminal narrowing and no canal stenosis. At the level of L4-5, there are disc bulge with superimposed left central protrusion with mild bilateral neuroforaminal narrowing and moderate left central canal stenosis. At the level of L5-S1, there are disc bulge with no neuroforaminal narrowing and no canal stenosis. The paraspinal muscles are unremarkable. Additional Findings Additional findings: If on a controlled substance or opioids, I have checked an [place] report on this patient and there are no aberrancies noted in the prescribing history.??If on a controlled substance or opioid a drug screen was completed and reviewed within the last year, and if there has not been a drug screen completed we ordered one today to monitor higher risk, state monitored pain medication use. As part of providing excellent, safe, comprehensive care, the following was completed at our patient's visit: 1. A medication reconciliation and review to ensure accurate knowledge of current/active medications, including asking our patients to inform us about any [id number]-[id number] medications or herbal remedies/nutritional supplements/alternative remedies. 2. A review to specifically ensure our patients have had annual screening for screening for depression, screening for tobacco use, and screening for unhealthy alcohol use. For concerning screenings had a discussion with the patient, provided patient education, and recommended follow-up with primary care provider when appropriate. If patient noted with a risk of falling, they received education on strength, gait, and balance training to prevent future risk of falling. Assessment and Plan Assessment and Plan (1) Lumbar stenosis with neurogenic claudication: Assessment and Plan: The patient has had over 3 months of moderate to severe low back pain with functional impairment and inadequate response to conservative care including NSAIDS (unless there are contraindication such as concurrent blood thinners), multiple oral or topical pain medications, and home exercise program/physical therapy.? Patient has completed >6 weeks of guided home exercise program and/or formal physical therapy program without relief of their symptoms.? I have reviewed the imaging of the lumbar spine and no red flags were identified.? (2) Lumbar spondylosis: Plan left L4-5 L5-S1 TFESI under fluoroscopy, risks vs benefits reviewed, with 10mg po valium continue current medications tolerating well without side effects, okay to fill refill of butrans early as patient had to dispose of patch for MRI f/u 2 weeks after injection
== END 2023-09-17 12:36 | disposition home or self-care (01) ==
PROVIDERS: PCP Family Medicine; Visit Provider Nurse Practitioner
DX: M48.062 Spinal stenosis, lumbar region with neurogenic claudication (principal); M47.816 Spondylosis without myelopathy or radiculopathy, lumbar region
CPT/HCPCS: G0463

== ENCOUNTER 2023-09-29 09:41 | Day surgery (SDC) | payer MEDICARE, OTHER, SELFPAY ==
--- OUTSIDE RECORDS SUMMARY | 2023-09-29 09:57 | XMS_ITS | CCD ---
Author Organization [facility] Care Team Providers Care Tie Sawyer Name Role Phone Suhas Grarett Unavailable Suhas Garrett Unavailable Unavailable Unavailable MAYO [...] Primary Care Unavailable Suhas Garrett Admitting Unavailable KunSuhas arellano Attending Unavailable KunsSuhas Admitting Unavailable KunSuhas arellano Attending Unavailable Suhas Garrett Primary Care Unavailable Trista FRIEDMAN, Gloria Gautam Attending Unavailable Trista FRIEDMAN, Gloria Gautam Attending Unavailable Allergies Allergy Classification Reported Allergen(s) Allergy Type Date of Onset Reaction(s) Facility (20 sources) Alendronate; Translations: [Fosamax] Drug Allergy 3 Unknown, Other Hospitals 3 Repository (20 sources) Amoxicillin; Translations: [amoxicillin] Drug Allergy 9 hives [facility] [employer] Other (20 sources) Phenytoin; Translations: [Dilantin CAPS] Drug Allergy 3 Rash [facility] [employer] Other (20 sources) Valproate; Translations: [Depakote ER TB24] Drug Allergy Unknown [facility] [employer] Other (1 source) Alendronate Drug Allergy [facility] Repository (1 source) Amoxicillin Drug Allergy [facility] Repository (1 source) Phenytoin Drug Allergy [facility] Repository (1 source) Valproate Drug Allergy [facility] Repository (20 sources) Acetaminophen / HYDROcodone Drug Allergy elevated liver enzymes [facility] [employer] Other (1 source) Alendronate Drug Allergy 3 [facility] (2 sources) HYDROcodone; Translations: [HYDROCODONE] Drug Allergy 4 [facility] Work Phone: (2 sources) Valproate; Translations: [VALPROIC ACID] Drug Allergy 3 [facility] Work Phone: (1 source) Acetaminophen Drug Allergy 4 [facility] Repository (1 source) Alendronate Drug Allergy 4 [facility] Repository (1 source) Amoxicillin Drug Allergy 4 [facility] Repository (1 source) HYDROcodone Drug Allergy 4 [facility] Repository (1 source) Phenytoin Drug Allergy 4 [facility] Repository (1 source) Valproate Drug Allergy 4 [facility] Repository Medications Current Medications Medication Drug [...] 6.25 mg oral tablet (20 sources) alpha-Adrenergic Waa, beta-Adrenergic Awa Start: 06-25-2017 take 1 tablet [...] tablet by mouth once daily. 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 Performed By: #### C MP, TSH3, CBC, T4F #### [place] [address] [place] #### THY AB #### [facility] , Basophils/100 WBC (Bld) 0.7 % Normal . [facility] Comment on above: Performed By: #### C MP, TSH3, CBC, T4F #### [address] #### THY AB #### [facility] , Eosinophils (Bld) [#/Vol] 0.1 10*3/uL Normal 0.0-0.45 [facility] Comment on above: Performed By: #### C MP, TSH3, CBC, T4F #### [address] #### THY AB #### [facility] , Eosinophils/100 WBC (Bld) 1.6 % Normal . [facility] Comment on above: Performed By: #### C MP, TSH3, CBC, T4F #### [address] #### THY AB #### [facility] , Erythrocyte distribution width (RBC) [Ratio] 14.8 % Normal 11.9-15.3 [facility] Comment on above: Performed By: #### C MP, TSH3, CBC, T4F #### [address] #### THY AB #### [facility] , Hematocrit (Bld) [Volume fraction] 39.9 % Normal 34.0-46.4 [facility] Comment on above: Performed By: #### C MP, TSH3, CBC, T4F #### [place] [address] [place] #### THY AB #### [facility] , Hemoglobin (Bld) [Mass/Vol] 13.2 g/dL Normal 11.8-15.4 [facility] Comment on above: Performed By: #### C MP, TSH3, CBC, T4F #### [place] [address] [place] #### THY AB #### [facility] , Lymphocytes (Bld) [#/Vol] 2.6 10*3/uL Normal 1.00-4.8 [facility] Comment on above: Performed By: #### C MP, TSH3, CBC, T4F #### [address] #### THY AB #### [facility] , Lymphocytes/100 WBC (Bld) 43.5 % Normal . [facility] Comment on above: Performed By: #### C MP, TSH3, CBC, T4F #### [address] #### THY AB #### [facility] , MCH (RBC) [Entitic mass] 33.2 pg Normal 24.7-34.3 [facility] Comment on above: Performed By: #### C MP, TSH3, CBC, T4F #### [address] #### THY AB #### [facility] , MCV (RBC) [Entitic vol] 100.5 fL High 80-100 [facility] Comment on above: Performed By: #### C MP, TSH3, CBC, T4F #### [address] #### THY AB #### [facility] , Mean Corpuscular HGB Conc 33.0 g/dL Normal 32.0-35.0 [facility] Comment on above: Performed By: #### C MP, TSH3, CBC, T4F #### [address] #### THY AB #### [facility] , Monocytes (Bld) [#/Vol] 0.6 10*3/uL Normal 0.0-0.8 [facility] Comment on above: Performed By: #### C MP, TSH3, CBC, T4F #### [place] [address] [place] #### THY AB #### [facility] , Monocytes/100 WBC (Bld) 9.7 % Normal . [facility] Comment on above: Performed By: #### C MP, TSH3, CBC, T4F #### [facility] [address] [place] [address] [place] #### THY AB #### [facility] , Neutrophils (Bld) [#/Vol] 2.7 10*3/uL Normal 1.8-7.7 [facility] Comment on above: Performed By: #### C MP, TSH3, CBC, T4F #### [facility] [address] [place] [address] [place] #### THY AB #### [facility] , Neutrophils/100 WBC (Bld) 44.5 % Normal . [facility] Comment on above: Performed By: #### C MP, TSH3, CBC, T4F #### [address] #### THY AB #### [facility] , NRBC% 0.2 /100{WBC} Normal 0-0.5 [facility] Comment on above: Performed By: #### C MP, TSH3, CBC, T4F #### [address] #### THY AB #### [facility] , Platelet mean volume (Bld) [Entitic vol] 9.2 fL Normal 6.3-10.7 [facility] Comment on above: Performed By: #### C MP, TSH3, CBC, T4F #### [facility] [address] [place] [address] [place] #### THY AB #### [facility] , Platelets (Bld) [#/Vol] 229 10*3/uL Normal 150-450 [facility] Comment on above: Performed By: #### C MP, TSH3, CBC, T4F #### [facility] [address] [place] [address] #### THY AB #### [facility] , RBC (Bld) [#/Vol] 3.98 10*6/uL Normal 3.60-5.00 [facility] Comment on above: Performed By: #### C MP, TSH3, CBC, T4F #### [facility] [address] [place] [address] [place] #### THY AB #### [facility] , WBC (Bld) [#/Vol] 6.0 10*3/uL Normal 3.8-11.6 [facility] Comment on above: Performed By: #### C MP, TSH3, CBC, T4F #### [address] #### THY AB #### [facility] , Comprehensive Metabolic Pane nory 09-03-2023 Albumin [Mass/Vol] 3.8 g/dL Normal 3.5-5.7 [facility] Comment on above: Performed By: #### C MP, TSH3, CBC, T4F #### [facility] [address] [place] [address] #### THY AB #### [facility] , Albumin/Globulin [Mass ratio] 1.7 {ratio} Normal [facility] Comment on above: Performed By: #### C MP, TSH3, CBC, T4F #### [place] [address] [place] #### THY AB #### [facility] , ALP [Catalytic activity/Vol] 72 U/L Normal 34-104 [facility] Comment on above: Performed By: #### C MP, TSH3, CBC, T4F #### [facility] [address] [place] [address] [place] #### THY AB #### [facility] , ALT [Catalytic activity/Vol] 43 U/L Normal 7-52 [facility] Comment on above: Performed By: #### C MP, TSH3, CBC, T4F #### [facility] [address] [place] [address] [place] #### THY AB #### [facility] , Anion gap [Moles/Vol] 8.9 mmol/L Normal 6.0-15.0 [facility] Comment on above: Performed By: #### C MP, TSH3, CBC, T4F #### [facility] [address] [place] [address] [place] #### THY AB #### [facility] , AST [Catalytic activity/Vol] 23 U/L Normal 13-39 [facility] Comment on above: Performed By: #### C MP, TSH3, CBC, T4F #### [facility] [address] [place] [address] #### THY AB #### [facility] , Bilirubin [Mass/Vol] 1.2 mg/dL High 0.3-1.0 [facility] Comment on above: Performed By: #### C MP, TSH3, CBC, T4F #### [facility] [address] [place] [address] [place] #### THY AB #### [facility] , Calcium [Mass/Vol] 9.5 mg/dL Normal 8.6-10.3 [facility] Comment on above: Performed By: #### C MP, TSH3, CBC, T4F #### [facility] [address] [place] [address] [place] #### THY AB #### [facility] , Chloride [Moles/Vol] 107 mmol/L Normal 98-107 [facility] Comment on above: Performed By: #### C MP, TSH3, CBC, T4F #### [facility] [address] [place] [address] [place] #### THY AB #### [facility] , CO2 [Moles/Vol] 30.0 mmol/L Normal 21.0-31.0 [facility] Comment on above: Performed By: #### C MP, TSH3, CBC, T4F #### [facility] [address] [place] [address] [place] #### THY AB #### [facility] , Creatinine [Mass/Vol] 0.76 mg/dL Normal 0.60-1.20 [facility] Comment on above: Performed By: #### C MP, TSH3, CBC, T4F #### [place] [address] [place] #### THY AB #### [facility] , GFR/1.73 sq M.predicted MDRD (S/P/Bld) [Vol rate/Area] mL/min/{1.73_m2} [facility] Comment on above: Performed By: #### C MP, TSH3, CBC, T4F #### [place] [address] [place] #### THY AB #### [facility] , Globulin (S) [Mass/Vol] 2.2 g/dL [facility] Comment on above: Performed By: #### C MP, TSH3, CBC, T4F #### [place] [address] [place] #### THY AB #### [facility] , Glucose [Mass/Vol] 79 mg/dL Normal 70-100 [facility] Comment on above: Result Comment: Bells Glucose Reference Range is dependent on time and content of last meal. Glucose of more than 200 mg/dL in a nonstressed, ambulatory subject supports the diagnosis of Diabetes Mellitus. ADA recommended reference range Performed By: #### C MP, TSH3, CBC, T4F #### [place] [address] [place] #### THY AB #### [facility] , Potassium [Moles/Vol] 3.9 mmol/L Normal 3.5-5.1 [facility] Comment on above: Performed By: #### C MP, TSH3, CBC, T4F #### [facility] [address] [place] [address] [place] #### THY AB #### [facility] , Protein [Mass/Vol] 6.0 g/dL Low 6.4-8.9 [facility] Comment on above: Performed By: #### C MP, TSH3, CBC, T4F #### [facility] [address] [place] [address] [place] #### THY AB #### [facility] , Sodium [Moles/Vol] 142 mmol/L Normal 136-145 [facility] Comment on above: Performed By: #### C MP, TSH3, CBC, T4F #### [facility] [address] [place] [address] [place] #### THY AB #### [facility] , Urea nitrogen [Mass/Vol] 22 mg/dL Normal 7-25 [facility] Comment on above: Performed By: #### C MP, TSH3, CBC, T4F #### [facility] [address] [place] [address] [place] #### THY AB #### [facility] , Lipid Panelon 09-03-2023 Cholesterol [Mass/Vol] 243 mg/dL High 140-200 [facility] Comment on above: Result Comment: Chol less than 200 mg/dl low risk Chol 201-239 mg/dl borderline risk Chol 240 mg/dl and greater high risk Performed By: #### C MP, TSH3, CBC, T4F #### [facility] [address] [place] [address] [place] #### THY AB #### [facility] , Cholesterol in HDL [Mass/Vol] 98 mg/dL High 23-92 [facility] Comment on above: Result Comment: HDL CHOL ATP-III CLASSIFICATION Cardiovascular Risk HDL > or equal to 60 mg/dL LOW HDL < 40 mg/dL HIGH Performed By: #### C MP, TSH3, CBC, T4F #### [facility] [address] [place] [address] [place] #### THY AB #### [facility] , Cholesterol.total/Cho lesterol in HDL [Mass ratio] 2.5 {ratio} Normal <5.0 [facility] Comment on above: Performed By: #### C MP, TSH3, CBC, T4F #### [place] [address] [place] #### THY AB #### [facility] , LDL Cholesterol,Calculate d 121 mg/dL High 0-100 [facility] Comment on above: Result Comment: LDL ATP III CLASSIFICATION LDL less than 100 mg/dL Optimal LDL 100-129 mg/dL Near or above optimal LDL 130-159 mg/dL Borderline high LDL 160-189 mg/dL High LDL greater than 189 mg/dL Very high Performed By: #### C MP, TSH3, CBC, T4F #### [place] [address] [place] #### THY AB #### [facility] , Triglyceride w/Reflex 122 mg/dL Normal 0-149 [facility] Comment on above: Result Comment: TRIG ATP III CLASSIFICATION TRIG less than 150 mg/dL Normal TRIG 150-199 mg/dL Borderline high TRIG 200-500 mg/dL High TRIG greater than 500 mg/dL Very high Standard traceable to the Center for Disease Conrtrol and Prevention (CDC) test method. Performed By: #### C MP, TSH3, CBC, T4F #### [facility] [address] [place] [address] [place] #### THY AB #### [facility] , VLDL CHOLESTEROL 24 mg/dL Normal [facility] Comment on above: Performed By: #### C MP, TSH3, CBC, T4F #### [place] [address] [place] #### THY AB #### [facility] , Thyroid Stimulating Hormoneo n 09-03-2023 TSH Qn 4.01 m[IU]/L Normal 0.45-5.33 [facility] Comment on above: Result Comment: PERF ORMED BY: [place] [address] PATHOLOGIST RETAIL MANAGER JODY SOLANO M.D. Performed By: #### C MP, TSH3, CBC, T4F #### [facility] [address] [place] [address] [place] #### THY AB #### [facility] , Complete Blood Count Auto Di ffon 07-08-2023 Basophils (Bld) [#/Vol] 0.779503462 10*3/uL Normal 0.0-0.2 10*3/uL [facility] Other Basophils/100 WBC (Bld) 0.900 % . % [facility] Other Eosinophils (Bld) [#/Vol] 0.407462844 10*3/uL Normal 0.0-0.45 10*3/uL [facility] Other Eosinophils/100 WBC (Bld) 1.100 % . % [facility] Other Erythrocyte distribution width (RBC) [Ratio] 14.000 % Normal 11.9-15.3 % [facility] Other Hematocrit (Bld) [Volume fraction] 37.700 % Normal 34.0-46.4 % [facility] Other Hemoglobin (Bld) [Mass/Vol] 12.935107 g/dL Normal 11.8-15.4 g/dL [facility] Other Lymphocytes (Bld) [#/Vol] 2.407776889 10*3/uL Normal 1.00-4.8 10*3/uL [facility] Other Lymphocytes/100 WBC (Bld) 35.100 % . % [facility] Other MCH (RBC) [Entitic mass] 33.3000 pg Normal 24.7-34.3 pg [facility] Other MCV (RBC) [Entitic vol] 99.7000 fL Normal 80-100 fL [facility] Other Monocytes (Bld) [#/Vol] 0.469795870 10*3/uL Normal 0.0-0.8 10*3/uL [facility] Other Monocytes/100 WBC (Bld) 10.000 % . % [facility] Other Neutrophils (Bld) [#/Vol] 3.593451717 10*3/uL Normal 1.8-7.7 10*3/uL [facility] Other Neutrophils/100 WBC (Bld) 52.900 % . % [facility] Other Platelet mean volume (Bld) [Entitic vol] 9.9000 fL Normal 6.3-10.7 fL [facility] Other WBC (Bld) [#/Vol] 7.154386671 10*3/uL Normal 3.8 -11.6 10*3/uL [facility] Other Complete Blood Count Auto Diff 7.1 10*3/uL Normal 3.8-11.6 10*3/uL [facility] Other Complete Blood Count Auto Diff 33.4 g/dL Normal 32.0-35.0 g/dL [facility] Other Complete Blood Count Auto Diff 0.1 /100{WBC} Normal 0-0.5 /100{WBC} [facility] Other Basophils (Bld) [#/Vol] 0.1 10*3/uL Normal 0.0-0.2 [facility] Comment on above: Order Comment: Reaso n for Exam Hyperthyroidism Result Comment: PERF ORMED BY: [facility] [address] [place] [address] PATHOLOGIST RETAIL MANAGER JODY SOLANO M.D. Performed By: #### C MP, TSH3, CBC, T4F #### [address] #### THY AB #### [facility] , Basophils/100 WBC (Bld) 0.9 % Normal . [facility] Comment on above: Order Comment: Reaso n for Exam Hyperthyroidism Performed By: #### C MP, TSH3, CBC, T4F #### [address] #### THY AB #### [facility] , Eosinophils (Bld) [#/Vol] 0.1 10*3/uL Normal 0.0-0.45 [facility] Comment on above: Order Comment: Reaso n for Exam Hyperthyroidism Performed By: #### C MP, TSH3, CBC, T4F #### [address] #### THY AB #### [facility] , Eosinophils/100 WBC (Bld) 1.1 % Normal . [facility] Comment on above: Order Comment: Reaso n for Exam Hyperthyroidism Performed By: #### C MP, TSH3, CBC, T4F #### [address] #### THY AB #### [facility] , Erythrocyte distribution width (RBC) [Ratio] 14.0 % Normal 11.9-15.3 [facility] Comment on above: Order Comment: Reaso n for Exam Hyperthyroidism Performed By: #### C MP, TSH3, CBC, T4F #### [place] [address] [place] #### THY AB #### [facility] , Hematocrit (Bld) [Volume fraction] 37.7 % Normal 34.0-46.4 [facility] Comment on above: Order Comment: Reaso n for Exam Hyperthyroidism Performed By: #### C MP, TSH3, CBC, T4F #### [facility] [address] [place] [address] #### THY AB #### [facility] , Hemoglobin (Bld) [Mass/Vol] 12.6 g/dL Normal 11.8-15.4 [facility] Comment on above: Order Comment: Reaso n for Exam Hyperthyroidism Performed By: #### C MP, TSH3, CBC, T4F #### [address] #### THY AB #### [facility] , Lymphocytes (Bld) [#/Vol] 2.5 10*3/uL Normal 1.00-4.8 [facility] Comment on above: Order Comment: Reaso n for Exam Hyperthyroidism Performed By: #### C MP, TSH3, CBC, T4F #### [facility] [address] [place] [address] #### THY AB #### [facility] , Lymphocytes/100 WBC (Bld) 35.1 % Normal . [facility] Comment on above: Order Comment: Reaso n for Exam Hyperthyroidism Performed By: #### C MP, TSH3, CBC, T4F #### [address] #### THY AB #### [facility] , MCH (RBC) [Entitic mass] 33.3 pg Normal 24.7-34.3 [facility] Comment on above: Order Comment: Reaso n for Exam Hyperthyroidism Performed By: #### C MP, TSH3, CBC, T4F #### [facility] [address] [place] [address] [place] #### THY AB #### [facility] , MCV (RBC) [Entitic vol] 99.7 fL Normal 80-100 [facility] Comment on above: Order Comment: Reaso n for Exam Hyperthyroidism Performed By: #### C MP, TSH3, CBC, T4F #### [facility] [address] [place] [address] [place] #### THY AB #### [facility] , Mean Corpuscular HGB Conc 33.4 g/dL Normal 32.0-35.0 [facility] Comment on above: Order Comment: Reaso n for Exam Hyperthyroidism Performed By: #### C MP, TSH3, CBC, T4F #### [facility] [address] [place] [address] [place] #### THY AB #### [facility] , Monocytes (Bld) [#/Vol] 0.7 10*3/uL Normal 0.0-0.8 [facility] Comment on above: Order Comment: Reaso n for Exam Hyperthyroidism Performed By: #### C MP, TSH3, CBC, T4F #### [facility] [address] [place] [address] [place] #### THY AB #### [facility] , Monocytes/100 WBC (Bld) 10.0 % Normal . [facility] Comment on above: Order Comment: Reaso n for Exam Hyperthyroidism Performed By: #### C MP, TSH3, CBC, T4F #### [facility] [address] [place] [address] [place] #### THY AB #### [facility] , Neutrophils (Bld) [#/Vol] 3.7 10*3/uL Normal 1.8-7.7 [facility] Comment on above: Order Comment: Reaso n for Exam Hyperthyroidism Performed By: #### C MP, TSH3, CBC, T4F #### [facility] [address] [place] [address] [place] #### THY AB #### [facility] , Neutrophils/100 WBC (Bld) 52.9 % Normal . [facility] Comment on above: Order Comment: Reaso n for Exam Hyperthyroidism Performed By: #### C MP, TSH3, CBC, T4F #### [facility] [address] [place] [address] [place] #### THY AB #### [facility] , NRBC% 0.1 /100{WBC} Normal 0-0.5 [facility] Comment on above: Order Comment: Reaso n for Exam Hyperthyroidism Performed By: #### C MP, TSH3, CBC, T4F #### [facility] [address] [place] [address] #### THY AB #### [facility] , Platelet mean volume (Bld) [Entitic vol] 9.9 fL Normal 6.3-10.7 [facility] Comment on above: Order Comment: Reaso n for Exam Hyperthyroidism Performed By: #### C MP, TSH3, CBC, T4F #### [facility] [address] [place] [address] #### THY AB #### [facility] , Platelets (Bld) [#/Vol] 224 10*3/uL Normal 150-450 [facility] [employer] Other Comment on above: Order Comment: Reaso n for Exam Hyperthyroidism Performed By: #### C MP, TSH3, CBC, T4F #### [facility] [address] [place] [address] #### THY AB #### [facility] , RBC (Bld) [#/Vol] 3.78 10*6/uL Normal 3.60-5.00 [facility] [employer] Other Comment on above: Order Comment: Reaso n for Exam Hyperthyroidism Performed By: #### C MP, TSH3, CBC, T4F #### [facility] [address] [place] [address] [place] #### THY AB #### [facility] , WBC (Bld) [#/Vol] 7.1 10*3/uL Normal 3.8-11.6 [facility] Comment on above: Order Comment: Reaso n for Exam Hyperthyroidism Performed By: #### C MP, TSH3, CBC, T4F #### [facility] [address] [place] [address] [place] #### THY AB #### [facility] , Comprehensive Metabolic Pane nory 07-08-2023 Albumin [Mass/Vol] 3.237244 g/dL Normal 3.5-5.7 g/dL N [facility] [employer] Other Bilirubin [Mass/Vol] 0.1071095 mg/dL Normal 0.3- 1.0 mg/dL [facility] Other Calcium [Mass/Vol] 9.7206075 mg/dL Normal 8.6-10 .3 mg/dL [facility] Other CO2 [Moles/Vol] 30.89530593 mmol/L Normal 21.0-3 1.0 mmol/L [facility] Other Creatinine [Mass/Vol] 0.77260003 mg/dL Normal 0. 60-1.20 mg/dL [facility] Other Potassium [Moles/Vol] 3.24004356 mmol/L Normal 3 .5-5.1 mmol/L [facility] Other Protein [Mass/Vol] 6.220472 g/dL Low 6.4-8.9 g/dL N [facility] [employer] Other Comprehensive Metabolic Panel 2.2 g/dL [facility] Other Albumin [Mass/Vol] 3.8 g/dL Normal 3.5-5.7 [facility] Comment on above: Order Comment: Reaso n for Exam Hyperthyroidism Performed By: #### C MP, TSH3, CBC, T4F #### [facility] [address] [place] [address] [place] #### THY AB #### [facility] , Albumin/Globulin [Mass ratio] 1.7 {ratio} Normal [facility] Other Comment on above: Order Comment: Reaso n for Exam Hyperthyroidism Performed By: #### C MP, TSH3, CBC, T4F #### [facility] [address] [place] [address] #### THY AB #### [facility] , ALP [Catalytic activity/Vol] 140 U/L High 34-104 [facility] [employer] Other Comment on above: Order Comment: Reaso n for Exam Hyperthyroidism Performed By: #### C MP, TSH3, CBC, T4F #### [facility] [address] [place] [address] #### THY AB #### [facility] , ALT [Catalytic activity/Vol] 71 U/L High 7-52 [facility] [employer] Other Comment on above: Order Comment: Reaso n for Exam Hyperthyroidism Performed By: #### C MP, TSH3, CBC, T4F #### [facility] [address] [place] [address] #### THY AB #### [facility] , Anion gap [Moles/Vol] 9.0 mmol/L Normal 6.0-15.0 [facility] Comment on above: Order Comment: Reaso n for Exam Hyperthyroidism Performed By: #### C MP, TSH3, CBC, T4F #### [address] #### THY AB #### [facility] , AST [Catalytic activity/Vol] 20 U/L Normal 13-39 [facility] [employer] Other Comment on above: Order Comment: Reaso n for Exam Hyperthyroidism Performed By: #### C MP, TSH3, CBC, T4F #### [facility] [facility] [address] [place] [address] [place] #### THY AB #### [facility] , Bilirubin [Mass/Vol] 0.7 mg/dL Normal 0.3-1.0 [facility] Comment on above: Order Comment: Reaso n for Exam Hyperthyroidism Performed By: #### C MP, TSH3, CBC, T4F #### [facility] [address] [place] [address] #### THY AB #### [facility] , Calcium [Mass/Vol] 9.4 mg/dL Normal 8.6-10.3 [facility] Comment on above: Order Comment: Reaso n for Exam Hyperthyroidism Performed By: #### C MP, TSH3, CBC, T4F #### [facility] [address] [place] [address] [place] #### THY AB #### [facility] , Chloride [Moles/Vol] 107 mmol/L Normal 98-107 [facility] [employer] Other Comment on above: Order Comment: Reaso n for Exam Hyperthyroidism Performed By: #### C MP, TSH3, CBC, T4F #### [facility] [address] [place] [address] #### THY AB #### [facility] , CO2 [Moles/Vol] 30.7 mmol/L Normal 21.0-31.0 [facility] Comment on above: Order Comment: Reaso n for Exam Hyperthyroidism Performed By: #### C MP, TSH3, CBC, T4F #### [facility] [address] [place] [address] #### THY AB #### [facility] , Creatinine [Mass/Vol] 0.76 mg/dL Normal 0.60-1.20 [facility] Comment on above: Order Comment: Reaso n for Exam Hyperthyroidism Performed By: #### C MP, TSH3, CBC, T4F #### [facility] [address] [place] [address] [place] #### THY AB #### [facility] , GFR/1.73 sq M.predicted MDRD (S/P/Bld) [Vol rate/Area] mL/min/{1.73_m2} Normal [facility] Other Comment on above: Order Comment: Reaso n for Exam Hyperthyroidism Performed By: #### C MP, TSH3, CBC, T4F #### [facility] [address] [place] [address] [place] #### THY AB #### [facility] , Globulin (S) [Mass/Vol] 2.2 g/dL Normal [facility] Comment on above: Order Comment: Reaso n for Exam Hyperthyroidism Performed By: #### C MP, TSH3, CBC, T4F #### [facility] [address] [place] [address] [place] #### THY AB #### [facility] , Glucose [Mass/Vol] 89 mg/dL Normal 70-100 [facility] Other Comment on above: Order Comment: Reaso n for Exam Hyperthyroidism Result Comment: [facility] Glucose Reference Range is dependent on time and content of last meal. Glucose of more than 200 mg/dL in a nonstressed, ambulatory subject supports the diagnosis of Diabetes Mellitus. ADA recommended reference range Performed By: #### C MP, TSH3, CBC, T4F #### [facility] [address] [place] [address] [place] #### THY AB #### [facility] , Potassium [Moles/Vol] 3.7 mmol/L Normal 3.5-5.1 [facility] Comment on above: Order Comment: Reaso n for Exam Hyperthyroidism Performed By: #### C MP, TSH3, CBC, T4F #### [facility] [address] [place] [address] [place] #### THY AB #### [facility] , Protein [Mass/Vol] 6.0 g/dL Low 6.4-8.9 [facility] Comment on above: Order Comment: Reaso n for Exam Hyperthyroidism Performed By: #### C MP, TSH3, CBC, T4F #### [facility] [address] [place] [address] [place] #### THY AB #### [facility] , Sodium [Moles/Vol] 143 mmol/L Normal 136-145 [facility] [employer] Other Comment on above: Order Comment: Reaso n for Exam Hyperthyroidism Performed By: #### C MP, TSH3, CBC, T4F #### [facility] [address] [place] [address] [place] #### THY AB #### [facility] , Urea nitrogen [Mass/Vol] 21 mg/dL Normal 7-25 [facility] [employer] Other Comment on above: Order Comment: Reaso n for Exam Hyperthyroidism Performed By: #### C MP, TSH3, CBC, T4F #### [facility] [address] [place] [address] [place] #### THY AB #### [facility] , Free T4 (Free Thyroxine)on 0 07-08-2023 Free T4 [Mass/Vol] 1.49708306 ng/dL High 0.61- 1.12 ng/dL [facility] [employer] Other Free T4 [Mass/Vol] 1.46 ng/dL High 0.61-1.12 [facility] Comment on above: Order Comment: Reaso n for Exam Hyperthyroidism Performed By: #### C MP, TSH3, CBC, T4F #### [facility] [address] [place] [address] [place] #### THY AB #### [facility] , Thyroid Antibodies TPO+Tg Ab on 07-08-2023 Thyroid Antibodies TPO+Tg Ab 11 0-34 [facility] [employer] Other Thyroid Antibodies TPO+Tg Ab <1.0 0.0-0.9 [facility] [employer] Other Antithyroglobulin Ab <1.0 Normal 0.0-0.9 [facility] Comment on above: Order Comment: Reaso n for Exam Hyperthyroidism Result Comment: Thyr oglobulin Antibody measured by [employer] Method[employer] Performed at: - [facility] [address] [id number] Hearing Aid Repair Technician: Antonino Belle PhD, Phone: [phone] PERFORMED BY: [place] [address] PATHOLOGIST RETAIL MANAGER JODY SOLANO M.D. Performed By: #### C MP, TSH3, CBC, T4F #### [place] [address] [place] #### THY AB #### [facility] , Thyroid Peroxidase Antibodies 11 Normal 0-34 [facility] Comment on above: Order Comment: Reaso n for Exam Hyperthyroidism Performed By: #### C MP, TSH3, CBC, T4F #### [place] [address] [place] #### THY AB #### [facility] , Thyroid Stimulating Hormoneo n 07-08-2023 TSH Qn 2.38098487507 m[IU]/L Normal 0.45-5.33 u[iU]/mL [facility] Other TSH Qn 2.42 m[IU]/L Normal 0.45-5.33 [facility] Comment on above: Order Comment: Reaso n for Exam Hyperthyroidism Result Comment: PERF ORMED BY: [place] [address] PATHOLOGIST RETAIL MANAGER JODY SOLANO M.D. Performed By: #### C MP, TSH3, CBC, T4F #### [place] [address] [place] #### THY AB #### [facility] , AUGUST Antinuclear Antibodieson 07-04-2023 Antinuclear Abs, IFA Positive Critically abnormal . [facility] Comment on above: Result Comment: Nega tive <1:80 Borderline 1:80 Positive >1:80 Speckled cytoplasmic fluorescence is present. The antibodies noted in this pattern may be associated with, but not restricted to, primary biliary cirrhosis (PBC), polymyositis and dermatomyositis (PM/DM), and/or systemic lupus erythematosus (SLE). Performed By: #### C MP, TSH3, CBC, T4F #### [facility] [address] [place] [address] [place] #### THY AB #### [facility] , Homogeneous Pattern 1:160 High . [facility] Comment on above: Result Comment: ICAP nomenclature: [id number] Performed By: #### C MP, TSH3, CBC, T4F #### [facility] [address] [place] [address] [place] #### THY AB #### [facility] , Note 1 Normal . [facility] Comment on above: Result Comment: Lucita marshall Potential Disease Association Homogeneous Systemic Lupus Erythematosus, Drug Induced Systemic Lupus Erythematosus, Chronic Autoimmune hepatitis, Juvenile Idiopathic Arthritis Speckled Sjogren Syndrome, Systemic Lupus Erythematosus, Subacute Cutaneous Lupus, Lupus, Congenital Heart Block, Mixed Connective Tissue Disease, Scleroderma-diffuse, Scleroderma-Autoimmune Myositis Overlap Syndrome, Systemic Lupus Oovgckafhwwox-Ewiqhqsdqjw-Grejpyztdd Myositis Overlap Syndrome, Systemic Autoimmune Rheumatic Disease, [...] Cytopenias, Linear Scleroderma, Antiphospholipid Syndrome Performed at: [place] [address] Hearing Aid Repair Technician: Antonino Belle PhD, Phone: [phone] Performed By: #### Velma MP, TSH3, CBC, T4F #### [address] #### THY AB #### [facility] , Anti-Streptolysin O Antibody on 07-04-2023 Anti-Streptolysin O Antibody <20.0 Normal 0.0-200.0 [facility] Comment on above: Result Comment: Perf ormed at: [facility] [place] [address] Hearing Aid Repair Technician: Antonino Belle PhD, Phone: [phone] PERFORMED BY: [place] [address] PATHOLOGIST RETAIL MANAGER JODY SOLANO M.D. Performed By: #### C MP, TSH3, CBC, T4F #### [address] [address] [place] #### THY AB #### [facility] , C-Reactive Proteinon 024 C-Reactive Protein 0.5 mg/dL Normal 0.0-0.5 [facility] Comment on above: Performed By: #### C MP, MG, CBC, CRP, T4F, TSH3, ESR, URIC #### [facility] [address] [place] [address] #### AUGUST, ASO, RA #### [facility] , Complete Blood Count Auto Di ffon 07-04-2023 Basophils (Bld) [#/Vol] 0.0 10*3/uL Normal 0.0-0.2 [facility] Comment on above: Performed By: #### C MP, TSH3, CBC, T4F #### [address] #### THY AB #### [facility] , Basophils/100 WBC (Bld) 0.6 % Normal . [facility] Comment on above: Performed By: #### C MP, TSH3, CBC, T4F #### [place] [address] [place] #### THY AB #### [facility] , Eosinophils (Bld) [#/Vol] 0.1 10*3/uL Normal 0.0-0.45 [facility] Comment on above: Performed By: #### C MP, TSH3, CBC, T4F #### [place] [address] [place] #### THY AB #### [facility] , Eosinophils/100 WBC (Bld) 0.7 % Normal . [facility] Comment on above: Performed By: #### C MP, TSH3, CBC, T4F #### [place] [address] [place] #### THY AB #### [facility] , Erythrocyte distribution width (RBC) [Ratio] 14.1 % Normal 11.9-15.3 [facility] Comment on above: Performed By: #### C MP, TSH3, CBC, T4F #### [facility] [address] [place] [address] #### THY AB #### [facility] , Hematocrit (Bld) [Volume fraction] 38.8 % Normal 34.0-46.4 [facility] Comment on above: Performed By: #### C MP, TSH3, CBC, T4F #### [address] #### THY AB #### [facility] , Hemoglobin (Bld) [Mass/Vol] 13.4 g/dL Normal 11.8-15.4 [facility] Comment on above: Performed By: #### C MP, TSH3, CBC, T4F #### [address] #### THY AB #### [facility] , Lymphocytes (Bld) [#/Vol] 1.0 10*3/uL Normal 1.00-4.8 [facility] Comment on above: Performed By: #### C MP, TSH3, CBC, T4F #### [address] #### THY AB #### [facility] , Lymphocytes/100 WBC (Bld) 13.9 % Normal . [facility] Comment on above: Performed By: #### C MP, TSH3, CBC, T4F #### [place] [address] [place] #### THY AB #### [facility] , MCH (RBC) [Entitic mass] 33.9 pg Normal 24.7-34.3 [facility] Comment on above: Performed By: #### C MP, TSH3, CBC, T4F #### [place] [id number] [place] #### THY AB #### [facility] , MCV (RBC) [Entitic vol] 98.3 fL Normal 80-100 [facility] Comment on above: Performed By: #### C MP, TSH3, CBC, T4F #### [facility] [address] [place] [address] #### THY AB #### [facility] , Mean Corpuscular HGB Conc 34.4 g/dL Normal 32.0-35.0 [facility] Comment on above: Performed By: #### C MP, TSH3, CBC, T4F #### [facility] [address] [place] [address] #### THY AB #### [facility] , Monocytes (Bld) [#/Vol] 0.4 10*3/uL Normal 0.0-0.8 [facility] Comment on above: Performed By: #### C MP, TSH3, CBC, T4F #### [address] #### THY AB #### [facility] , Monocytes/100 WBC (Bld) 5.4 % Normal . [facility] Comment on above: Performed By: #### C MP, TSH3, CBC, T4F #### [facility] [address] [place] [address] [place] #### THY AB #### [facility] , Neutrophils (Bld) [#/Vol] 5.8 10*3/uL Normal 1.8-7.7 [facility] Comment on above: Performed By: #### C MP, TSH3, CBC, T4F #### [facility] [address] [place] [address] [place] #### THY AB #### [facility] , Neutrophils/100 WBC (Bld) 79.4 % Normal . [facility] Comment on above: Performed By: #### C MP, TSH3, CBC, T4F #### [facility] [address] [place] [address] #### THY AB #### [facility] , NRBC% 0.0 /100{WBC} Normal 0-0.5 [facility] Comment on above: Performed By: #### C MP, TSH3, CBC, T4F #### [facility] [address] [place] [address] [place] #### THY AB #### [facility] , Platelet mean volume (Bld) [Entitic vol] 9.6 fL Normal 6.3-10.7 [facility] Comment on above: Performed By: #### C MP, TSH3, CBC, T4F #### [address] #### THY AB #### [facility] , Platelets (Bld) [#/Vol] 211 10*3/uL Normal 150-450 [facility] Comment on above: Performed By: #### C MP, TSH3, CBC, T4F #### [place] [address] [place] #### THY AB #### [facility] , RBC (Bld) [#/Vol] 3.95 10*6/uL Normal 3.60-5.00 [facility] Comment on above: Performed By: #### C MP, TSH3, CBC, T4F #### [place] [address] [place] #### THY AB #### [facility] , WBC (Bld) [#/Vol] 7.3 10*3/uL Normal 3.8-11.6 [facility] Comment on above: Performed By: #### C MP, TSH3, CBC, T4F #### [place] [address] [place] #### THY AB #### [facility] , Comprehensive Metabolic Pane nory 07-04-2023 Albumin [Mass/Vol] 4.2 g/dL Normal 3.5-5.7 [facility] Comment on above: Performed By: #### C MP, MG, CBC, CRP, T4F, TSH3, ESR, URIC #### [facility] [address] [place] [address] [place] #### AUGUST, ASO, RA #### [facility] , Albumin/Globulin [Mass ratio] 1.8 {ratio} Normal [facility] Comment on above: Performed By: #### C MP, MG, CBC, CRP, T4F, TSH3, ESR, URIC #### [facility] [address] [place] [address] [place] #### AUGUST, ASO, RA #### [facility] , ALP [Catalytic activity/Vol] 220 U/L High 34-104 [facility] Comment on above: Performed By: #### C MP, MG, CBC, CRP, T4F, TSH3, ESR, URIC #### [facility] [address] [place] [address] [place] #### AUGUST, ASO, RA #### [facility] , ALT [Catalytic activity/Vol] 181 U/L High 7-52 [facility] Comment on above: Performed By: #### C MP, MG, CBC, CRP, T4F, TSH3, ESR, URIC #### [facility] [address] [place] [address] [place] #### AUGUST, ASO, RA #### [facility] , Anion gap [Moles/Vol] 11.0 mmol/L Normal 6.0-15.0 [facility] Comment on above: Performed By: #### C MP, MG, CBC, CRP, T4F, TSH3, ESR, URIC #### [facility] [address] [place] [address] [place] #### AUGUST, ASO, RA #### [facility] , AST [Catalytic activity/Vol] 56 U/L High 13-39 [facility] Comment on above: Performed By: #### C MP, MG, CBC, CRP, T4F, TSH3, ESR, URIC #### [facility] [address] [place] [address] [place] #### AUGUST, ASO, RA #### [facility] , Bilirubin [Mass/Vol] 1.2 mg/dL High 0.3-1.0 [facility] Comment on above: Performed By: #### C MP, MG, CBC, CRP, T4F, TSH3, ESR, URIC #### [facility] [address] [place] [address] #### AUGUST, ASO, RA #### [facility] , Calcium [Mass/Vol] 10.0 mg/dL Normal 8.6-10.3 [facility] Comment on above: Performed By: #### C MP, MG, CBC, CRP, T4F, TSH3, ESR, URIC #### [facility] [address] [place] [address] [place] #### AUGUST, ASO, RA #### [facility] , Chloride [Moles/Vol] 105 mmol/L Normal 98-107 [facility] Comment on above: Performed By: #### C MP, MG, CBC, CRP, T4F, TSH3, ESR, URIC #### [facility] [address] [place] [address] [place] #### AUGUST, ASO, RA #### [facility] , CO2 [Moles/Vol] 29.8 mmol/L Normal 21.0-31.0 [facility] Comment on above: Performed By: #### C MP, MG, CBC, CRP, T4F, TSH3, ESR, URIC #### [facility] [address] [place] [address] [place] #### AUGUST, ASO, RA #### [facility] , Creatinine [Mass/Vol] 0.68 mg/dL Normal 0.60-1.20 [facility] Comment on above: Performed By: #### C MP, MG, CBC, CRP, T4F, TSH3, ESR, URIC #### [facility] [address] [place] [address] [place] #### AUGUST, ASO, RA #### [facility] , GFR/1.73 sq M.predicted MDRD (S/P/Bld) [Vol rate/Area] mL/min/{1.73_m2} [facility] Comment on above: Performed By: #### C MP, MG, CBC, CRP, T4F, TSH3, ESR, URIC #### [place] [address] [place] #### AUGUST, ASO, RA #### [facility] , Globulin (S) [Mass/Vol] 2.4 g/dL [facility] Comment on above: Performed By: #### C MP, MG, CBC, CRP, T4F, TSH3, ESR, URIC #### [place] [address] [place] #### AUGUST, ASO, RA #### [facility] , Glucose [Mass/Vol] 97 mg/dL Normal 70-100 [facility] Comment on above: Result Comment: [facility] Glucose Reference Range is dependent on time and content of last meal. Glucose of more than 200 mg/dL in a nonstressed, ambulatory subject supports the diagnosis of Diabetes Mellitus. ADA recommended reference range Performed By: #### C MP, MG, CBC, CRP, T4F, TSH3, ESR, URIC #### [place] [address] [place] #### AUGUST, ASO, RA #### [facility] , Potassium [Moles/Vol] 3.8 mmol/L Normal 3.5-5.1 [facility] Comment on above: Performed By: #### C MP, MG, CBC, CRP, T4F, TSH3, ESR, URIC #### [place] [address] [place] #### AUGUST, ASO, RA #### [facility] , Protein [Mass/Vol] 6.6 g/dL Normal 6.4-8.9 [facility] Comment on above: Performed By: #### C MP, MG, CBC, CRP, T4F, TSH3, ESR, URIC #### [address] #### AUGUST, ASO, RA #### [facility] , Sodium [Moles/Vol] 142 mmol/L Normal 136-145 [facility] Comment on above: Performed By: #### C MP, MG, CBC, CRP, T4F, TSH3, ESR, URIC #### [address] #### AUGUST, ASO, RA #### [facility] , Urea nitrogen [Mass/Vol] 19 mg/dL Normal 7-25 [facility] Comment on above: Performed By: #### C MP, MG, CBC, CRP, T4F, TSH3, ESR, URIC #### [address] #### AUGUST, ASO, RA #### [facility] , Erythrocyte Sedimentation Ra amy 07-04-2023 ESR (Bld) [Velocity] 19 mm/h Normal 0-29 [facility] Comment on above: Result Comment: PERF ORMED BY: [place] [address] PATHOLOGIST RETAIL MANAGER JODY SOLANO M.D. Performed By: #### C MP, TSH3, CBC, T4F #### [facility] [address] [place] [address] #### THY AB #### [facility] , Free T4 (Free Thyroxine)on 0 07-04-2023 Free T4 [Mass/Vol] 4.05 ng/dL High 0.61-1.12 [facility] Comment on above: Performed By: #### C MP, MG, CBC, CRP, T4F, TSH3, ESR, URIC #### [facility] [address] [place] [address] #### AUGUST, ASO, RA #### [facility] , Magnesiumon 07-04-2023 Magnesium [Mass/Vol] 2.0 mg/dL Normal 1.9-2.7 [facility] Comment on above: Performed By: #### C MP, MG, CBC, CRP, T4F, TSH3, ESR, URIC #### [address] #### AUGUST, ASO, RA #### [facility] , Rheumatoid Factoron 07-04-19 Rheumatoid Factor 15.3 High <14.0 [facility] Comment on above: Result Comment: Perf ormed at: [facility] [id number] Hearing Aid Repair Technician: Antonino Belle PhD, Phone: [phone] Performed By: #### C MP, TSH3, CBC, T4F #### [address] #### THY AB #### [facility] , Thyroid Stimulating Hormoneo n 07-04-2023 TSH Qn 1.35 m[IU]/L Normal 0.45-5.33 [facility] Comment on above: Result Comment: PERF ORMED BY: [place] [address] PATHOLOGIST RETAIL MANAGER JODY SOLANO M.D. Performed By: #### C MP, TSH3, CBC, T4F #### [place] [address] [place] #### THY AB #### [facility] , Uric Acidon 07-04-2023 Urate [Mass/Vol] 4.0 mg/dL Normal 2.3-6.6 [facility] Comment on above: Performed By: #### C MP, MG, CBC, CRP, T4F, TSH3, ESR, URIC #### [facility] [address] #### AUGUST, ASO, RA #### [facility] , Echocardiogramon 02-26-2023 Echocardiography [facility] [address] [place] [address], [address] [address] TRANSTHORACIC ECHOCARDIOGRAM REPORT Patient Name: LAVONNE Shruti Physician: [id number] Shy Wolf MD, [facility] Study Date: 02/26/2023 Referring SHY WOLF Physician: MRN/PID: [id number] PCP: Suhas Garrett MD Accession/Order#: [id number] Department [facility] Location: Date of : 1935 Fellow: Gender: F Nurse: Admit Date: Concrete Bucket Loader: Sheridan Lemus [facility] Height: 157.48 cm CC Report to: Weight: 67.13 kg Study Type: Echocardiogram BSA: 1.68 m2 Blood Pressure: 122 /76 mmHg Diagnosis/ICD: I35.0-Nonrheumatic aortic (valve) stenosis; R01.1-Cardiac murmur, unspecified Indication: HTN, Hyperlipidemia, Overweight, Hypothyroid, Polymyalgia Rheumatica Procedure/CPT: Echo Complete w Full [id number] Study Detail: The following Echo studies were [...] mmHg PIEDV: 2.50 m/s PADP: 28.0 mmHg [id number] Shy Wolf MD, FAC Electronically signed on 03/01/2023 at 2:16:46 PM Final Normal [facility] Office Visit (Cardiology)on 12-24-2022 Follow-up visit Diagnoses/Problems Assessed Aortic stenosis (424.1) (I35.0) Murmur, cardiac (785.2) (R01.1) Essential hypertension (401.9) (I10) Hyperlipidemia (272.4) (E78.5) Overweight with body mass index (BMI) of 27 to 27.9 in adult (278.02,V85.23) (E66.3,Z68.27) Never smoker Hypothyroidism (244.9) (E03.9) PMR (polymyalgia rheumatica) (725) (M35.3) Orders Aortic stenosis, Murmur, cardiac Echocardiogram; Status:Hold For - Scheduling,Retrospec tive Authorization; Requested for:[id number]; Essential hypertension, Hyperlipidemia Changed: From Aspirin EC 81 MG TBEC TAKE 1 TABLET To Aspirin 81 MG Oral Tablet Delayed Release TAKE 1 TABLET DAILY Overweight with body mass index (BMI) of 27 to 27.9 in adult Healthy Weight Tips; Status:Complete - Retrospective Authorization; Done: [id number] Some eating tips that can help you lose weight.; Status:Complete - Retrospective Authorization; Done: [id number] SocHx: Never smoker Tobacco Use Screening; Status:Complete; Done: [id number] Patient Instructions Please bring all medicines, vitamins, [...] is being tapered gradually Shy Wolf MD, [facility] Past Medical History Problems History of Carotid bruit (785.9) (R09.89) Current Meds Medication NameInstruction amLODIPine Besylate 10 MG Oral TabletTAKE 1 TABLET DAILY. Aspirin EC 81 MG TBECTAKE 1 TABLET M-W- Calcium 600 MG TABSTAKE 1 TABLET DAILY. Carvedilol 6.25 MG Oral TabletTAKE 1 TABLET TWICE DAILY WITH MEALS. Levothyroxine Sodium 100 MCG Oral TabletTAKE 1 TABLET DAILY. Losartan Potassium-HCTZ 100-12.5 MG Oral TabletTAKE 1 TABLET DAILY. Multi Vitamin Oral TabletTAKE 1 TABLET DAILY. [place]-3 Fish Oil 1000 MG Oral CapsuleTAKE 1 [...] negative for complaint. Vitals Vital Signs Recorded: [id number] 11:32AM Heart Rate68, R Radial Qqneehka172, RUE, Sitting Bftpckvbh74, RUE, Sitting Height5 ft 2 in Lsahyo489 lb BMI Tvckoueepa86.07 kg/m2 BSA Calculated1.68 Tobacco Useb) No PHQ-2 [...] distress a (more content not included)... Normal [place] Tobacco Screening.on 023 Adult depression screening assessment No [employer] 250 DO Work Phone: Fall risk assessment a) No falls within the last year [employer] 250 DO Work Phone: Tobacco use status CPHS b) No [employer] 250 DO Work Phone: Complete Blood Count Auto Di ffon 02-22-2022 Basophils (Bld) [#/Vol] 0.009419294 10*3/uL Normal 0.0-0.2 10*3/uL [facility] Other Basophils/100 WBC (Bld) 0.700 % . % [facility] Other Eosinophils (Bld) [#/Vol] 0.502277944 10*3/uL Normal 0.0-0.45 10*3/uL [facility] Other Eosinophils/100 WBC (Bld) 0.700 % . % [facility] Other Erythrocyte distribution width (RBC) [Ratio] 13.500 % Normal 11.9-15.3 % [facility] Other Hematocrit (Bld) [Volume fraction] 38.400 % Normal 34.0-46.4 % [facility] Other Hemoglobin (Bld) [Mass/Vol] 12.790675 g/dL Normal 11.8-15.4 g/dL [facility] Other Lymphocytes (Bld) [#/Vol] 0.195042147 10*3/uL Low 1.00-4.8 10*3/uL [facility] Other Lymphocytes/100 WBC (Bld) 12.600 % . % [facility] Other MCH (RBC) [Entitic mass] 33.7000 pg Normal 24.7-34.3 pg [facility] Other MCV (RBC) [Entitic vol] 100.4000 fL High 80-100 fL [facility] Other Monocytes (Bld) [#/Vol] 0.964887382 10*3/uL Normal 0.0-0.8 10*3/uL [facility] Other Monocytes/100 WBC (Bld) 6.800 % . % [facility] Other Neutrophils (Bld) [#/Vol] 5.423646029 10*3/uL Normal 1.8-7.7 10*3/uL [facility] Other Neutrophils/100 WBC (Bld) 79.200 % . % [facility] Other Platelet mean volume (Bld) [Entitic vol] 9.4000 fL Normal 6.3-10.7 fL [facility] Other Platelets (Bld) [#/Vol] 223 10*3/uL Normal 150-450 10*3/uL [facility] Rx Other RBC (Bld) [#/Vol] [id number] 10*6/uL Normal 3. 60-5.00 10*6/uL [facility] Other WBC (Bld) [#/Vol] [id number] 10*3/uL Normal 3.8 -11.6 10*3/uL [facility] Other Complete Blood Count Auto Diff 6.6 10*3/uL Normal 4.5-11.0 10*3/uL [facility] Other Complete Blood Count Auto Diff 33.6 g/dL Normal 32.0-35.0 g/dL [facility] Other Complete Blood Count Auto Diff 0.1 % Normal 0-0.5 % [facility] Other Erythrocyte Sedimentation Ra amy 02-22-2022 ESR (Bld) [Velocity] 28 mm/h Normal 0-29 [facility] Other VASC LAB Carotid Artery Dupl ex Ultrasoundon 02-21-2022 US.doppler Carotid arteries [employer] [employer] [place] Work Phone: COVID Quick Testingon 2021 Result Positive [facility] Other Falls Screening (Age 18+)on 12-26-2021 Fall risk assessment a) No falls within the last year [facility] [employer] [address] DO Work Phone: Office Visit (Cardiology)on 12-26-2021 Follow-up visit Diagnoses/Problems Assessed Essential hypertension (401.9) (I10) Patient Instructions By signing my name below, ISherin Lpn,Chemaibe, attest that this documentation has been prepared [...] Multi Vitamin Oral TabletTAKE 1 TABLET DAILY. [place] 3 500 CAPSTAKE 1 CAPSULE Daily predniSONE 5 MG Oral Ycjfsc1VF 7.5MG BY MOUTH ONE DAILY ALTERNATING EVERY OTHER DAY Allergies Medication amoxicillin Hives;; Recorded By: Kayla Orr; 10/17/2021 10:50:34 AM Dilantin CAPS Rash; Recorded By: Kayla Orr; 10/17/2021 10:50:34 AM Fosamax eye pain; Recorded By: Kayla Orr; 10/17/2021 10:50:34 AM Depakote ER TB24 Recorded By: Kayla Orr; 10/17/2021 10:50:34 AM Vitals Vital Signs Recorded: [id number] 11:04AMRecorded: [id number] 11:00AM Heart Rate56, R Rzjqia69, R Radial Kxneccxd330, LUE, Mrvuldz498, RUE Uugprueeb27, LUE, Efvqhmo25, RUE Height5 ft 2 in5 ft 2 in Gdrccb518 lb 143 lb BMI Lisngunpcl06.16 kg/m226.16 kg/m2 BSA Calculated1.661.66 Falls Screening (Age 18+)a) No falls within the last year Signatures Electronically signed by : Shy Wolf MD; Dec 26 2021 4:02PM EST (Author) Normal [place] Tobacco Screening.on 022 Adult depression screening assessment No [facility] Work Phone: Fall risk assessment a) No falls within the last year [facility] Work Phone: Tobacco use status CPHS b) No [facility] Work Phone: Vital Signs Date Time Vital Sign Value 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 Facility 07-04-2023 11:15-0500 Body height 157.48 cm Suhas Garrett Other [facility] Other 07-04-2023 11:15-0500 Body mass index (BMI) [Ratio] 28.53 kg/m2 Suhas Garrett Other [facility] Other 07-04-2023 11:15-0500 Body weight 70.76 kg Suhas Garrett Other [facility] Other 07-04-2023 11:15-0500 Diastolic blood pressure 84 mm[Hg] Suhas Ugo Other [facility] Other 07-04-2023 11:15-0500 Respiratory rate 20 /min Suhas Mayoadan Other [facility] Other 07-04-2023 11:15-0500 SaO2% (BldA) [Mass fraction] 99 % Suhas Mayoadan Other [facility] Other 07-04-2023 11:15-0500 Systolic blood pressure 150 mm[Hg] Suhas Mayoadan Other [facility] Other 06-19-2023 11:09-0500 Body height 157.5 cm Shy Wolf MD Work Phone: [facility] 06-19-2023 11:09-0500 Body mass index (BMI) [Ratio] 27.98 kg/m2 Shy Wolf MD Work Phone: [facility] 06-19-2023 11:09-0500 Body weight 69.4 kg Shy Wolf MD Work Phone: [facility] 06-19-2023 11:09-0500 Diastolic blood pressure 76 mm[Hg] Shy Wolf MD Work Phone: [facility] 06-19-2023 11:09-0500 Heart rate 60 /min Shy Wolf MD Work Phone: [facility] 06-19-2023 11:09-0500 Systolic blood pressure 120 mm[Hg] Shy Wolf MD Work Phone: [facility] 05-30-2023 11:00-0500 Body height 157.48 cm Suhas Garrett Other [facility] Other 05-30-2023 11:00-0500 Body mass index (BMI) [Ratio] 27.8 kg/m2 Suhas Garrett Other [facility] Other 05-30-2023 11:00-0500 Body weight 68.95 kg Suhas Garrett Other [facility] Other 05-30-2023 11:00-0500 Diastolic blood pressure 80 mm[Hg] Suhas Garrett Other [facility] Other 05-30-2023 11:00-0500 Respiratory rate 18 /min Suhas Garrett Other [facility] Other 05-30-2023 11:00-0500 SaO2% (BldA) [Mass fraction] 96 % Suhas Garrett Other [facility] Other 05-30-2023 11:00-0500 Systolic blood pressure 122 mm[Hg] Suhas Garrett Other [facility] Other 02-28-2023 10:30-0400 Body height 157.48 cm Suhas Garrett Other [facility] Other 02-28-2023 10:30-0400 Body mass index (BMI) [Ratio] 27.98 kg/m2 Suhas Garrett Other [facility] Other 02-28-2023 10:30-0400 Body weight 69.4 kg Suhas Garrett Other [facility] [employer] Other 02-28-2023 10:30-0400 Diastolic blood pressure 76 mm[Hg] Suhas Garrett Other [place] [facility] Other 02-28-2023 10:30-0400 Respiratory rate 16 /min Suhas Garrett Other [facility] [employer] Other 02-28-2023 10:30-0400 SaO2% (BldA) [Mass fraction] 91 % Suhas Garrett Other [facility] [employer] Other 02-28-2023 10:30-0400 Systolic blood pressure 134 mm[Hg] Suhas Garrett Other [facility] [employer] Other 12-24-2022 11:32-0400 Body height 157.48 cm Suhas Mayoadan Work Phone: [facility] [employer] [address] DO Work Phone: 12-24-2022 11:32-0400 Body mass index (BMI) [Ratio] 27.07 kg/m2 Suahs Mayoadan Work Phone: [facility] [address] DO Work Phone: 12-24-2022 11:32-0400 Body surface area Derived from formula 1.68 m2 Suhas Mayoadan Work Phone: [facility] [address] DO Work Phone: 12-24-2022 11:32-0400 Body weight 67.13 kg Suhas Mayoadan Work Phone: [facility] [address] DO Work Phone: 12-24-2022 11:32-0400 Diastolic blood pressure 76 mm[Hg] Suhasraquel Garrett Work Phone: [facility] [employer] [address] DO Work Phone: 12-24-2022 11:32-0400 Heart rate 68 /min Suhas Garrett Work Phone: [facility] [employer] [address] DO Work Phone: 12-24-2022 11:32-0400 Systolic blood pressure 118 mm[Hg] Suhas Garrett Work Phone: [facility] [employer] 250 DO Work Phone: 12-06-2022 10:30-0400 Body height 157.48 cm Suhas Garrett Other [facility] Other 12-06-2022 10:30-0400 Body mass index (BMI) [Ratio] 27.98 kg/m2 Suhas Garrett Other [facility] Other 12-06-2022 10:30-0400 Body weight 69.4 kg Suhas Garrett Other [facility] Other 12-06-2022 10:30-0400 Diastolic blood pressure 70 mm[Hg] Suhas Garrett Other [facility] Other 12-06-2022 10:30-0400 Respiratory rate 16 /min Suhas Garrett Other [facility] Other 12-06-2022 10:30-0400 SaO2% (BldA) [Mass fraction] 98 % Suhas Garrett Other [facility] Other 12-06-2022 10:30-0400 Systolic blood pressure 146 mm[Hg] Suhas Garrett Other [facility] Other 09-20-2022 11:45-0400 Body height 157.48 cm Suhas Garrett Other [facility] Other 09-20-2022 11:45-0400 Body mass index (BMI) [Ratio] 26.34 kg/m2 Suhas Garrett Other [facility] Other 09-20-2022 11:45-0400 Body weight 65.32 kg Suhas Garrett Other [facility] Other 09-20-2022 11:45-0400 Diastolic blood pressure 70 mm[Hg] Suhas Garrett Other [facility] Other 09-20-2022 11:45-0400 Respiratory rate 16 /min Suhas Garrett Other [facility] Other 09-20-2022 11:45-0400 SaO2% (BldA) [Mass fraction] 98 % Suhas Garrett Other [facility] Other 09-20-2022 11:45-0400 Systolic blood pressure 130 mm[Hg] Suhas Garrett Other [facility] Other 07-22-2022 11:30-0500 Body height 157.48 cm Suhas Garrett Other [facility] Other 07-22-2022 11:30-0500 Body mass index (BMI) [Ratio] 26.85 kg/m2 Suhas Garrett Other [facility] Other 07-22-2022 11:30-0500 Body weight 66.59 kg Suhas Garrett Other [facility] Other 07-22-2022 11:30-0500 Diastolic blood pressure 70 mm[Hg] Suhas Garrett Other [facility] Other 07-22-2022 11:30-0500 Respiratory rate 16 /min Suhas Garrett Other [facility] Other 07-22-2022 11:30-0500 SaO2% (BldA) [Mass fraction] 98 % Suhas Garrett Other [facility] Other 07-22-2022 11:30-0500 Systolic blood pressure 122 mm[Hg] Suhas Garrett Other [facility] Other 04-17-2022 11:45-0500 Body height 157.48 cm Suhas Garrett Other [facility] Other 04-17-2022 11:45-0500 Body mass index (BMI) [Ratio] 26.88 kg/m2 Suhas Garrett Other [facility] Other 04-17-2022 11:45-0500 Body weight 66.68 kg Suhas Garrett Other [facility] Other 04-17-2022 11:45-0500 Diastolic blood pressure 72 mm[Hg] Suhas Garrett Other [facility] Other 04-17-2022 11:45-0500 Respiratory rate 16 /min Suhas Garrett Other [facility] Other 04-17-2022 11:45-0500 SaO2% (BldA) [Mass fraction] 99 % Suhas Garrett Other [facility] Other 04-17-2022 11:45-0500 Systolic blood pressure 138 mm[Hg] Suhas Garrett Other [facility] Other 02-22-2022 10:15-0400 Body height 157.48 cm Suhas Garrett Other [facility] Other 02-22-2022 10:15-0400 Body mass index (BMI) [Ratio] 27.07 kg/m2 Suhas Garrett Other [facility] Other 02-22-2022 10:15-0400 Body weight 67.13 kg Suhas Garrett Other [facility] Other 02-22-2022 10:15-0400 Diastolic blood pressure 70 mm[Hg] Suhas Garrett Other [facility] Other 02-22-2022 10:15-0400 Respiratory rate 16 /min Suhas Garrett Other [facility] Other 02-22-2022 10:15-0400 SaO2% (BldA) [Mass fraction] 97 % Suhas Garrett Other [facility] Other 02-22-2022 10:15-0400 Systolic blood pressure 122 mm[Hg] Suhas Garrett Other [facility] Other 02-21-2022 10:45-0400 70 1 Suhas Garrett Work Phone: [place] [id number] [place] Work Phone: Comment on above: [id number] 02-14-2022 15:45-0400 Body height 157.48 cm Suhas Garrett Other [facility] Other 02-14-2022 15:45-0400 Body mass index (BMI) [Ratio] 26.7 kg/m2 Suhas Mayoadan Other [facility] Other 02-14-2022 15:45-0400 Body weight 66.23 kg Suhas Garrett Other [facility] Other 02-14-2022 15:45-0400 Diastolic blood pressure 72 mm[Hg] Suhasraquel Garrett Other [facility] Other 02-14-2022 15:45-0400 Respiratory rate 16 /min Suhas Mayoadan Other [facility] Other 02-14-2022 15:45-0400 SaO2% (BldA) [Mass fraction] 96 % Suhas Mayoadan Other [facility] Other 02-14-2022 15:45-0400 Systolic blood pressure 132 mm[Hg] Suhas Gaeladan Other [facility] Other 12-26-2021 11:04-0400 Body height 157.48 cm Suhas Dalton Gaeladan Work Phone: [facility] [employer] [address] DO Work Phone: 12-26-2021 11:04-0400 Body mass index (BMI) [Ratio] 26.16 kg/m2 Suhas Dalton Garrett Work Phone: [facility] [employer] DO Work Phone: 12-26-2021 11:04-0400 Body surface area Derived from formula 1.66 m2 Suhas Garrett Work Phone: [facility] DO Work Phone: 12-26-2021 11:04-0400 Body weight 64.86 kg Suhas Garrett Work Phone: [facility] 250 DO Work Phone: 12-26-2021 11:04-0400 Diastolic blood pressure 68 mm[Hg] Suhas Garrett Work Phone: [facility] 250 DO Work Phone: 12-26-2021 11:04-0400 Heart rate 56 /min Suhas Garrett Work Phone: [facility] DO Work Phone: 12-26-2021 11:04-0400 Systolic blood pressure 126 mm[Hg] Suhas Garrett Work Phone: [facility] DO Work Phone: 12-26-2021 11:00-0400 Diastolic blood pressure 70 mm[Hg] Suhas Garrett Work Phone: [facility] [facility] DO Work Phone: 12-26-2021 11:00-0400 Systolic blood pressure 130 mm[Hg] Suhas Garrett Work Phone: [facility] DO Work Phone: 12-13-2021 11:39-0400 Diastolic blood pressure 80 mm[Hg] Suhas Garrett Work Phone: [facility] Work Phone: 12-13-2021 11:39-0400 Systolic blood pressure 170 mm[Hg] Suhas Garrett Work Phone: [facility] Work Phone: 12-13-2021 11:22-0400 Diastolic blood pressure 80 mm[Hg] Suhas Dalton Garrett Work Phone: [facility] Work Phone: 12-13-2021 11:22-0400 Systolic blood pressure 158 mm[Hg] Suhas Dalton Garrett Work Phone: [facility] Work Phone: 12-13-2021 11:17-0400 Body height 157.48 cm Suhas Mayoadan Work Phone: [facility] Work Phone: 12-13-2021 11:17-0400 Body mass index (BMI) [Ratio] 26.52 kg/m2 Suhas Hoffman Ugo Work Phone: [facility] Work Phone: 12-13-2021 11:17-0400 Body surface area Derived from formula 1.67 m2 Suhas Dalton Garrett Work Phone: [facility] Work Phone: 12-13-2021 11:17-0400 Body weight 65.77 kg Suhas Garrett Work Phone: [facility] Work Phone: 12-13-2021 11:17-0400 Diastolic blood pressure 80 mm[Hg] Suhas Dalton Garrett Work Phone: [facility] Work Phone: 12-13-2021 11:17-0400 Heart rate 60 /min Suhas Dalton Garrett Work Phone: [facility] Work Phone: 12-13-2021 11:17-0400 Systolic blood pressure 160 mm[Hg] Suhas Mayoadna Work Phone: [facility] Work Phone: 10-01-2021 13:30-0400 Body height 157.48 cm Suhas Garrett Other [facility] Other 10-01-2021 13:30-0400 Body mass index (BMI) [Ratio] 26.34 kg/m2 Suhasraquel Mayoadan Other [facility] Other 10-01-2021 13:30-0400 Body weight 65.32 kg Suhas Gaeladan Other [facility] Other 10-01-2021 13:30-0400 Diastolic blood pressure 72 mm[Hg] Suhas Garrett Other [facility] Other 10-01-2021 13:30-0400 Respiratory rate 18 /min Suhas Garrett Other [facility] Other 10-01-2021 13:30-0400 SaO2% (BldA) [Mass fraction] 99 % Suhas Garrett Other [facility] Other 10-01-2021 13:30-0400 Systolic blood pressure 130 mm[Hg] Suhas Garrett Other [facility] Other 08-02-2021 13:30-0500 Body height 157.48 cm Suhas Garrett Other [facility] Other 08-02-2021 13:30-0500 Body mass index (BMI) [Ratio] 26.52 kg/m2 Suhas Garrett Other [facility] Other 08-02-2021 13:30-0500 Body weight 65.77 kg Suhas Garrett Other [facility] Other 08-02-2021 13:30-0500 Diastolic blood pressure 70 mm[Hg] Suhas Garrett Other [facility] Other 08-02-2021 13:30-0500 Respiratory rate 16 /min Suhas Ugo Other [facility] Other 08-02-2021 13:30-0500 SaO2% (BldA) [Mass fraction] 99 % Suhas Garrett Other [facility] Other 08-02-2021 13:30-0500 Systolic blood pressure 118 mm[Hg] Suhas Garrett Other [facility] Other 04-26-2021 13:30-0500 Body height 157.48 cm Suhas Garrett Other [facility] Other 04-26-2021 13:30-0500 Body mass index (BMI) [Ratio] 25.97 kg/m2 Suhas Garrett Other [facility] Other 04-26-2021 13:30-0500 Body weight 64.41 kg Suhas Ugo Other [facility] Other 04-26-2021 13:30-0500 Diastolic blood pressure 74 mm[Hg] Suhas Garrett Other [facility] Other 04-26-2021 13:30-0500 Respiratory rate 17 /min Suhas Garrett Other [facility] Other 04-26-2021 13:30-0500 SaO2% (BldA) [Mass fraction] 98 % Suhas Garrett Other [facility] Other 04-26-2021 13:30-0500 Systolic blood pressure 120 mm[Hg] Suhas Garrett Other [facility] Other Encounters Encounter Date Encounter Type Care Provider Facility Start: 09-08-2023 End: 09-09-2023 ambulatory Gloria Weston MD Facility:[facility] Start: 09-03-2023 End: 09-03-2023 ambulatory Suhas Garrett Facility:[facility] Start: 08-25-2023 End: 08-26-2023 ambulatory Gloria Weston MD Facility:[facility] Start: 07-18-2023 End: 07-18-2023 ambulatory Suhas Garrett Other [facility] Other Start: 07-18-2023 Telephone encounter Suhas Garrett [facility] [place] Start: 07-15-2023 End: 07-15-2023 ambulatory Suhas Garrett Other [facility] Other Start: 07-15-2023 Telephone encounter Suhas Garrett [facility] [place] Start: 07-10-2023 End: 07-10-2023 ambulatory Suhas Garrett Other [facility] Other Start: 07-10-2023 Telephone encounter Suhas Garrett [facility] [place] Start: 07-08-2023 End: 07-08-2023 ambulatory Suhas Garrett Facility:[facility] Start: 07-07-2023 End: 07-07-2023 ambulatory Suhas Mayoadan Other [facility] Other Start: 07-07-2023 Telephone encounter Suhas Garrett [facility] [place] Start: 07-04-2023 End: 07-04-2023 ambulatory Suhas Garrett [facility] Other Start: 07-04-2023 Office outpatient vi sit 15 minutes Suhas Garrett [facility] [place] Start: 06-19-2023 Telephone encounter Suhas Garrett [facility] [place] Start: 06-19-2023 End: 06-19-2023 ambulatory SHY WOLF [place] [facility] Other Start: 06-19-2023 End: 06-19-2023 Office outpatient visit 25 minutes Shy Wolf MD Work Phone: [facility] Comment on above: Aortic valve stenosi s, etiology of cardiac valve disease unspecified; Essential hypertension; Hyperlipidemia, unspecified hyperlipidemia type; Never smoked any substance Start: 05-30-2023 End: 05-30-2023 ambulatory Suhas Garrett Other [facility] [employer] Other Start: 05-30-2023 Office outpatient vi sit 25 minutes [facility] Start: 05-28-2023 End: 05-28-2023 ambulatory Suhas Garrett Other [facility] [employer] Other Start: 05-28-2023 Telephone encounter Suhas [facility] Start: 04-23-2023 End: 04-23-2023 ambulatory Suhas Garrett Other [facility] Other Start: 04-23-2023 Telephone encounter Suhas Garrett [facility] [place] Start: 04-18-2023 End: 04-18-2023 ambulatory Suhas Garrett Other [facility] Other Start: 04-18-2023 Telephone encounter Suhas Garrett [facility] [place] Start: 03-02-2023 Chart Update Suhas Garrett Work Phone: [facility] [address] DO Work Phone: Start: 02-28-2023 End: 02-28-2023 ambulatory Suhas Garrett Other [facility] Other Start: 02-28-2023 Office outpatient vi sit 15 minutes Suhas Garrett [facility] Start: 02-26-[address] Suhas Garrett Facility:[id number] Start: 01-27-2023 End: 01-27-2023 ambulatory Suhas Garrett Other [facility] Other Start: 01-27-2023 Telephone encounter Suhas Garrett [facility] [place] Start: 12-24-2022 Office outpatient vi sit 25 minutes Suhas Garrett Work Phone: [facility] [address] DO Work Phone: Start: 12-24-[address] Shy Wolf Facility: Start: 12-06-2022 End: 12-06-2022 ambulatory Suhas Garrett Other [facility] Other Start: 12-06-2022 Office outpatient vi sit 15 minutes Suhas Garrett [facility] Start: 09-20-2022 End: 09-20-2022 ambulatory Suhas Garrett Other [facility] Other Start: 09-20-2022 Office outpatient vi sit 15 minutes Suhas Garrett [facility] [place] Start: 08-14-2022 End: 08-14-2022 ambulatory Suhas Garrett Other [facility] Other Start: 08-14-2022 Telephone encounter Suhas Garrett [facility] [place] Start: 07-22-2022 End: 07-22-2022 ambulatory Suhas Garrett Other [facility] Other Start: 07-22-2022 Office outpatient vi sit 15 minutes Suhas Garrett [facility] [place] Start: 04-17-2022 End: 04-17-2022 ambulatory Suhas Garrett Other [facility] Other Start: 04-17-2022 Office outpatient vi sit 15 minutes Suhas Garrett [facility] [place] Start: 04-10-2022 End: 04-10-2022 ambulatory Suhas Garrett Other [facility] Other Start: 04-10-2022 Telephone encounter Suhas Ugo [facility] [place] Start: 04-03-2022 End: 04-03-2022 ambulatory Suhas Garrett Other [facility] Other Start: 04-03-2022 Telephone encounter Suhas Garrett [facility] [place] Start: 04-02-2022 End: 04-02-2022 ambulatory Suhas Garrett Other [facility] Other Start: 04-02-2022 Telephone encounter Suhas Garrett [facility] [place] Start: 02-26-2022 End: 02-26-2022 ambulatory Suhas Garrett Other [facility] Other Start: 02-26-2022 Telephone encounter Suhas Garrett [facility] [place] Start: 02-25-2022 End: 02-25-2022 ambulatory Suhas Garrett Other [facility] Other Start: 02-25-2022 Telephone encounter Suhas Garrett [facility] [place] Start: 02-22-2022 End: 02-22-2022 ambulatory Suhas Garrett Other [facility] Other Start: 02-22-2022 Office outpatient vi sit 25 minutes Suhas Garrett [facility] [place] Start: 02-21-2022 Patient encounter procedure Suhas Garrett Work Phone: [facility] [address] [place] Work Phone: Start: 02-20-2022 End: 02-21-2022 ambulatory MAYO CARBAJAL Facility: Start: 02-14-2022 End: 02-14-2022 ambulatory Suhas Garrett Other [facility] Other Start: 02-14-2022 Office outpatient vi sit 25 minutes Suhas Garrett [facility] [place] Start: 01-11-2022 End: 01-11-2022 ambulatory Suhas Garrett Other [facility] Other Start: 01-11-2022 Nursing evaluation o f patient and report Suhas Garrett [facility] [place] Start: 01-11-2022 Telephone encounter Suhas Garrett [facility] [place] Start: 12-26-2021 Office outpatient vi sit 10 minutes Suhas Garrett Work Phone: [facility] [address] DO Work Phone: Start: 12-26-[address] Suhas Garrett Facility: Start: 12-20-2021 End: 12-20-2021 ambulatory Suhas Garrett Other [facility] Other Start: 12-20-2021 Telephone encounter Suhas Garrett [facility] [place] Start: 12-13-2021 Office outpatient vi sit 25 minutes Suhas Garrett Work Phone: [facility] Work Phone: Start: 11-02-2021 End: 11-02-2021 ambulatory Suhas Garrett Other [facility] Other Start: 11-02-2021 Telephone encounter Suhas Garrett [facility] [place] Start: 10-01-2021 End: 10-01-2021 ambulatory Suhas Garrett Other [facility] Other Start: 10-01-2021 Office outpatient vi sit 15 minutes Suhas Garrett [facility] [place] Start: 09-10-2021 End: 09-10-2021 ambulatory Suhas Garrett Other [facility] Other Start: 09-10-2021 Telephone encounter Suhas Garrett [facility] [place] Start: 08-20-2021 End: 08-20-2021 ambulatory Suhas Garrett Other [facility] Other Start: 08-20-2021 Telephone encounter Suhas Garrett [facility] [place] Start: 08-02-2021 End: 08-02-2021 ambulatory Suhas Garrett Other [facility] Other Start: 08-02-2021 Office outpatient vi sit 15 minutes Suhas Garrett [facility] [place] Start: 07-25-2021 End: 07-25-2021 ambulatory Suhas Garrett Other [facility] Other Start: 07-25-2021 Telephone encounter Suhas Garrett [facility] [place] Start: 05-08-2021 End: 05-08-2021 ambulatory Suhas Garrett Other [facility] Other Start: 05-08-2021 Telephone encounter Suhas Garrett [facility] [place] Start: 04-26-2021 End: 04-26-2021 ambulatory Suhas Garrett Other [facility] Other Start: 04-26-2021 Office outpatient vi sit 25 minutes Suhas [facility] Procedures Date Procedure Procedure Detail 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 Start: 02-26-2023 Echocardiography Shuas Garrett Work Phone: Start: 02-21-2022 Echocardiography Suhas Garrett Work Phone: Appendectomy Suhas Garrett Work Phone: Cholecystectomy Suhas Garrett Work Phone: Operation on ovary Suhas anderson Work Phone: Thyroidectomy Suhas Garrett Work Phone: Total colonoscopy Suhas Hoang ns Work Phone: Plan of Treatment Date Care Activity Detail Author Start: 05-12-2028 DTaP/Tdap/Td Vaccine s (2 - Td or Tdap) DTaP/Tdap/Td Vaccines (2 - Td or Tdap) [facility] Start: 03-16-2024 End: 03-16-2024 Patient encounter procedure 03/16/2024 11:20 AM EDT Office Visit [facility] [address] [place] [address] Shy Wolf MD [address] [place] [address] [facility] Start: 02-11-2024 End: 02-11-2024 Patient encounter procedure 02/11/2024 12:30 PM EDT Appointment [facility] [address] [place] [address] [facility] Start: 02-08-2024 End: 06-19-2025 [facility] Transthoracic Transthoracic Echo (TTE) Complete Echocardiography Routine Aortic valve stenosis, etiology of cardiac valve disease unspecified Expected: 02/08/2024 (Approximate), Expires: 06/19/2025 [facility] Service Area Work Phone: Comment on above: Expected: 02/08/2024 (Approximate), Expires: 06/19/2025 Start: 06-19-2023 FUV, Provider: Shy Wolf, Status: Pen, Time: 11:00 AM FUV, Provider: Shy Wolf, Status: Pen, Time: 11:00 AM [facility] 250 DO Work Phone: Start: 05-28-2023 COVID-19 Vaccine (5 - Moderna series) COVID-19 Vaccine (5 - Moderna series) [facility] Start: 02-26-2023 ECHO, Provider: SAMUEL HHVI ULTRASOUND 01,[id number], Status: Pen, Time: 10:45 AM ECHO, Provider: SAMUEL HHVI ULTRASOUND 01,[id number], Status: Pen, Time: 10:45 AM [facility] 250 DO Work Phone: Start: 12-24-2022 FUV, Provider: Shy Wolf, Status: Pen, Time: 11:20 AM FUV, Provider: Shy Wolf, Status: Pen, Time: 11:20 AM [facility] Work Phone: Start: 02-21-2022 CAROTID, Provider: SAMUEL HHVI ULTRASOUND 01,[id number], Status: Pen, Time: 12:30 PM CAROTID, Provider: SAMUEL HHVI ULTRASOUND 01,[id number], Status: Pen, Time: 12:30 PM [facility] Work Phone: Start: 02-21-2022 ECHO, Provider: SAMUEL HHVI ULTRASOUND 01,[id number], Status: Pen, Time: 10:45 AM ECHO, Provider: SAMUEL HHVI ULTRASOUND 01,[id number], Status: Pen, Time: 10:45 AM [facility] Work Phone: Start: 01-17-2022 CAROTID, Provider: SAMUEL HHVI ULTRASOUND 01,[id number], Status: Pen, Time: 2:30 PM CAROTID, Provider: SAMUEL HHVI ULTRASOUND 01,[id number], Status: Pen, Time: 2:30 PM [facility] Work Phone: Start: 01-17-2022 ECHO, Provider: SAMUEL HHVI ULTRASOUND 01,[id number], Status: Pen, Time: 1:30 PM ECHO, Provider: SAMUEL HHVI ULTRASOUND 01,[id number], Status: Pen, Time: 1:30 PM [facility] Work Phone: Start: 12-26-2021 NURSEVST, Provider: MAGDA DANIEL INSOLE LIP TURNER 1,[id number], Status: Pen, Time: 11:00 AM NURSEVST, Provider: MAGDA DANIEL INSOLE LIP TURNER 1,[id number], Status: Pen, Time: 11:00 AM [facility] Work Phone: Start: 1935 Lipid panel Lipid Panel [facility] Start: 1935 Medicare Annual Wellness Visit Medicare Annual Wellness Visit (AWV) [facility] Start: 1935 Thyroid stimulating hormone measurement TSH Level [facility] Immunizations Immunization Date Immunization Notes Care Provider Fa cility 04-17-2022 Moderna COVID-19 Bivalent 50 MCG/0.5ML Intramuscular Suspension Suhas Garrett Work Phone: [facility] [employer] 250 DO Work Phone: 03-21-2022 Fluad Quadrivalent 0 .5 ML Intramuscular Prefilled Syringe Suhas Garrett Work Phone: [facility] [employer] 250 DO Work Phone: 03-21-2022 influenza, seasonal, injectable Suhas Garrett Other [facility] Other 11-14-2021 Moderna COVID-19 Vaccine 100 MCG/0.5ML Intramuscular Suspension Suhas P Ugo Work Phone: [facility] Work Phone: 04-05-2021 Moderna COVID-19 Vaccine 100 MCG/0.5ML Intramuscular Suspension Suhas P Gaels Work Phone: [facility] Work Phone: 03-19-2021 influenza, seasonal, injectable Suhas Garrett Other [facility] [employer] Other 08-08-2020 Moderna COVID-19 Vaccine 100 MCG/0.5ML Intramuscular Suspension Suhas P Gaels Work Phone: [facility] Work Phone: 07-11-2020 Moderna COVID-19 Vaccine 100 MCG/0.5ML Intramuscular Suspension Suhas P Gaels Work Phone: [facility] Work Phone: 04-28-2020 pneumococcal polysaccharide vaccine, 23 valent Suhas Garrett Other [facility] Other 03-06-2020 Seasonal trivalent influenza vaccine, adjuvanted, preservative free Suhas P Gaels Work Phone: [facility] Work Phone: 03-06-2020 influenza, seasonal, injectable Suhas Mayos Other [facility] Other 02-08-2020 influenza virus vaccine, unspecified formulation Suhas P Kuns Work Phone: [facility] Work Phone: 02-08-2020 influenza, seasonal, injectable Suhas Kuns Other [facility] Other 05-04-2019 zoster vaccine recombinant Suhas Garrett Other [facility] Other 03-09-2019 influenza, high dose seasonal, preservative-free Suhas P Gaels Work Phone: [facility] Work Phone: 03-04-2019 influenza, seasonal, injectable Suhas Mayos Other [facility] Other 02-04-2019 zoster vaccine recombinant Suhas Garrett Other [facility] Other 05-12-2018 tetanus toxoid, redu bety diphtheria toxoid, and acellular pertussis vaccine, adsorbed Suhas Gaels Other [facility] Other 03-16-2018 Seasonal trivalent influenza vaccine, adjuvanted, preservative free Shy Wolf MD Work Phone: [facility] Work Phone: 03-09-2018 influenza virus vaccine, unspecified formulation Suhas P Kuns Work Phone: [facility] Work Phone: 04-09-2017 influenza virus vaccine, unspecified formulation Suhas P Ugo Work Phone: [facility] Work Phone: 03-28-2017 Seasonal trivalent influenza vaccine, adjuvanted, preservative free Suhas P Gaels Work Phone: [facility] Work Phone: 05-23-2016 pneumococcal conjuga te vaccine, 13 valent Suhas Kuns Other [facility] [employer] Other 04-01-2016 Seasonal trivalent influenza vaccine, adjuvanted, preservative free Suhas P Gaels Work Phone: [facility] Work Phone: 03-09-2016 influenza virus vaccine, unspecified formulation Suhas P Ugo Work Phone: [facility] Work Phone: 03-09-2016 pneumococcal conjuga te vaccine, 13 valent Suhas P Gaels Work Phone: [facility] Work Phone: 04-07-2015 influenza, injectabl e, quadrivalent, contains preservative Suhas P Ugo Work Phone: [facility] Work Phone: 03-09-2015 influenza virus vaccine, unspecified formulation Suhas Garrett Work Phone: [facility] Work Phone: 04-05-2014 influenza, seasonal, injectable, preservative free Suhas P Ugo Work Phone: [facility] Work Phone: 03-09-2014 influenza virus vaccine, whole virus Suhas Garrett Work Phone: [facility] Work Phone: 03-23-2013 influenza, seasonal, injectable Suhas Garrett Work Phone: [facility] Work Phone: 03-09-2013 influenza virus vaccine, unspecified formulation Suhas Garrett Work Phone: [facility] Work Phone: 04-14-2012 influenza, injectabl e, quadrivalent, contains preservative Suhas Garrett Other [facility] [employer] Other 06-09-2011 influenza virus vaccine, unspecified formulation Suhas Garrett Work Phone: [facility] Work Phone: 06-09-2010 influenza virus vaccine, unspecified formulation Suhas Garrett Work Phone: [facility] Work Phone: 06-09-2009 influenza virus vaccine, unspecified formulation Suhas Garrett Work Phone: [facility] Work Phone: 05-30-2009 novel [id number], preservative-free, injectable Suhas Garrett Work Phone: [facility] Work Phone: 10-19-2007 varicella virus vaccine Belkys Garrett Work Phone: [facility] Work Phone: 06-09-2006 pneumococcal polysaccharide vaccine, 23 valent Suhas Garrett Work Phone: [facility] Work Phone: Payers Date Payer Category Payer Self-pay 2022 Private Health Insurance [id number] 2001 Medicare MEDICARE MEDICAR E RAILROAD [id number] 2001-Present [address] [place] [address] [id number] 2001 Unknown 1959 Medicare [id number] 1959 Private Health Insurance [id number] 1936 Unknown [id number] 1936 Unknown [id number] 1936 Unknown [id number] 1936 Unknown [id number] 1936 Unknown [id number] 1936 Unknown [id number] 1936 Unknown [id number] Unknown [id number] Unknown [id number] Unknown [id number] Social History Date Type Detail Facility Unknown if ever smoked [facility] [employer] Other Start: 06-19-2023 Sex Assigned At [facility] [employer] Other Start: 06-19-2023 Caffeine use Caffeine use [facility] Work Phone: Start: 06-19-2023 Tobacco smoking status NHIS Never smoked tobacco [facility] Work Phone: Start: 06-19-2023 Tobacco use and exposure Smokeless tobacco non-user [facility] Work Phone: Start: 1935 Sex Assigned At Not on file [facility] Work Phone: Start: 06-09-2023 End: 06-19-2023 Exposure to SARS-CoV-2 (event) Not sure [facility] Clinical Notes 02-15-2015 to 07-18-2023 Note Date & Type Note Facility 07-18-2023 Evaluation note Encounter Date Diagnosis Assessment Notes Jul, PMR (polymya lgia rheumati ca) (ICD-10 - M35.3) [facility] Other 02-06-2024 Evaluation note* Encounter Date Diagnosis Assessment Notes Treatment Notes Treatment Clinical Notes Jul, PMR (polymyalgia rheumatica) (ICD-10 - M35.3) [facility] Other 02-01-2024 Evaluation note* Encounter Date Diagnosis Assessment Notes Treatment Notes Treatment Clinical Notes Jul, Hypothyroidism (ICD-10 - E03.9) [facility] Other 01-29-2024 Evaluation note* Encounter Date Diagnosis Assessment Notes Treatment Notes Treatment Clinical Notes Jun, Hypothyroidism (ICD- 10 - E03.9) Jun, Hyperthyroidism (ICD-10 - E05.90) [facility] Other 01-26-2024 Evaluation note* Encounter Date Diagnosis [...] medications in combination with eachother. Also discussed [facility] ster[facility] use in regards to her condition. [...] requires sooner she is welcome to call. [facility] Other 01-11-2024 Evaluation note* Encounter Date Diagnosis Assessment Notes Treatment Notes Treatment Clinical Notes Jun, PMR (polymyalgia rheumatica) (ICD-10 - M35.3) [facility] Other 01-11-2024 History of Present illness Narrative* [...] is being tapered gradually Shy Wolf MD, [facility] Review of Systems All other systems [...] of Shy Wolf MD. [facility] Work Phone: [phone] 195-428601-11-2024 Instructions* Patient Instructions* Yevgeniy Cortez MA - [...] time of your visit. [facility] Work Phone: [phone]) 448-597212-22-2023 Evaluation note* Encounter Date Diagnosis Assessment Notes [...] recommend the patient get the RSV vaccine. [facility] Other 12-20-2023 Evaluation note* Encounter Date Diagnosis Assessment Notes Treatment Notes Treatment Clinical Notes May, Hypertension (ICD-10 - I10) May, Hypothyroidism (ICD-10 - E03.9) [facility] Other 11-10-2023 Evaluation note* Encounter Date Diagnosis Assessment Notes Treatment Notes Treatment Clinical Notes Apr, PMR (polymyalgia rheumatica) (ICD-10 - M35.3) [facility] Other 09-22-2023 Evaluation note* Encounter Date Diagnosis Assessment Notes Treatment Notes Treatment Clinical Notes Feb, PMR (polymyalgia rheumatica) (ICD-10 - M35.3) She was encouraged to take 2.5mg daily. Patient is agreeable. Feb, Hypertension (ICD-10 - I10) Blood pressure is satisfactory, she is to follow with cardiology as scheduled. [facility] Other 08-21-2023 Evaluation note* Encounter Date Diagnosis Assessment Notes Treatment Notes Treatment Clinical Notes Jan, Hypertension (ICD-10 - I10) [facility] Other 06-30-2023 Evaluation note* Encounter Date Diagnosis [...] very confident this is due to the Norvasc. She will see Dr. Wolf in three weeks therefore was advised to make sure she discusses the swelling with him and see what he would like to do. Patient is agreeable. [facility] Other 04-14-2023 Evaluation note* Encounter Date Diagnosis [...] tablets daily. We will continue to monitor. [facility] Other 03-08-2023 Evaluation note* Encounter Date Diagnosis Assessment Notes Treatment Notes Treatment Clinical Notes Aug, PMR (polymyalgia rheumatica) (ICD-10 - M35.3) [facility] Other 02-13-2023 Evaluation note* Encounter Date Diagnosis [...] states she has an upcoming appointment with director of retail and she will discuss making medication changes at that time. [facility] Other 11-09-2022 Evaluation note* Encounter Date Diagnosis [...] can cut Apr, Hyperlipidemia (ICD-10 - E78.5) [facility] Other 11-02-2022 Evaluation note* Encounter Date Diagnosis Assessment Notes Treatment Notes Treatment Clinical Notes Apr, PMR (polymyalgia rheumatica) (ICD-10 - M35.3) [facility] Other 10-26-2022 Evaluation note* Encounter Date Diagnosis Assessment Notes Treatment Notes Treatment Clinical Notes Mar, Lumbar back pain (ICD-10 - M54.50) [facility] Other 09-20-2022 Evaluation note* Encounter Date Diagnosis Assessment Notes Treatment Notes Treatment Clinical Notes Feb, Elevated liver function tests (ICD-10 - R79.89) [facility] Other 09-16-2022 Evaluation note* Encounter Date Diagnosis Assessment Notes Treatment Notes Treatment Clinical Notes Feb, Acute pain of left shoulder (ICD-10 - M25.512) [place] [facility] report reviewed from 02/20/22 . The [...] pain (ICD-10 - R10.13) The patient advised Grandy could be causing her GI upset , [...] month Boniva at her next office visit. [facility] Other 09-08-2022 Evaluation note* Encounter Date Diagnosis [...] (ICD-10 - M85.80) Noted on Lumbar x-ray. [facility] Other 08-05-2022 Evaluation note* Encounter Date Diagnosis Assessment Notes Treatment Notes Treatment Clinical Notes Jan, COVID-19 (ICD-10 - U07.1) [facility] Other 08-05-2022 Evaluation note* Encounter Date Diagnosis Assessment Notes Treatment Notes Treatment Clinical Notes Jan, Cough (ICD-10 - R05.9) In house covid test is positive. Treatment plan discussed in TE. [facility] Other 07-14-2022 Evaluation note* Encounter Date Diagnosis Assessment Notes Treatment Notes Treatment Clinical Notes Dec, PMR (polymyalgia rheumatica) (ICD-10 - M35.3) [facility] Other 05-27-2022 Evaluation note* Encounter Date Diagnosis Assessment Notes Treatment Notes Treatment Clinical Notes October, PMR (polymyalgia rheumatica) (ICD-10 - M35.3) [facility] Other 04-25-2022 Evaluation note* Encounter Date Diagnosis [...] The patient encourged to continue following with director of retail annually in December as scheduled. I did forward a copy of most current blood work results . [facility] Other 04-04-2022 Evaluation note* Encounter Date Diagnosis Assessment Notes Treatment Notes Treatment Clinical Notes Sep, PMR (polymyalgia rheumatica) (ICD-10 - M35.3) Sep, Hypertension (ICD-10 - I10) [facility] Other 02-24-2022 Evaluation note* Encounter Date Diagnosis [...] if needed. We will continue to montior. [facility] Other 02-16-2022 Evaluation note* Encounter Date Diagnosis Assessment Notes Treatment Notes Treatment Clinical Notes Jul, PMR (polymyalgia rheumatica) (ICD-10 - M35.3) [facility] Other 11-30-2021 Evaluation note* Encounter Date Diagnosis Assessment Notes Treatment Notes Treatment Clinical Notes Apr, PMR (polymyalgia rheumatica) (ICD-10 - M35.3) [facility] Other 11-18-2021 Evaluation note* Encounter Date Diagnosis [...] Hypothyroidism (ICD-10 - E03.9) Blood work ordered. [facility] Other 09-09-2015 History general Narrative - Reported* Type Description Date Medical History Shingles Medical History 02-15-15-mammogram-negativ e Medical History 01/[id number]-zdjicysptde-urudiq, repea t in 3 yrs Medical History 03/2017- colonoscopy- normal Medical History f/u with cardiology NO Medical History ECHO 09/2016 Surgical History Appendectomy Surgical History Gallbladder Removal Surgical History Ovarian Cyst Removal Surgical History Coccyx repair Surgical History Cataracts Bilateral Eyes Surgical History thyroidectomy Dr. Forbes 10/14/2019 Hospitalization History Childbirth x5 Hospitalization History [facility] [place] [facility]No [facility] [employer] Other Evaluation note* Diagnosis Aortic valve stenosis, etiology of cardiac valve disease unspecified Essential hypertension Unspecified essential hypertension Hyperlipidemia, unspecified hyperlipidemia type Never smoked any substance documented in this encounter [facility] Work Phone: Chief Complaint * LAVONNE [...] being tapered gradually * Shy Wolf MD, [facility] * LAVONNE VILLATORO is being seen for [...] being tapered gradually * Shy Wolf MD, [facility] * LAVONNE VILLATORO is being seen for [...] being tapered gradually * Shy Wolf MD, [facility] Family History No Family History Records [...] PMR (polymyalgia rhe umatica) (M35.3) Referral Organization [facility] [place] Referring Provider First Name Suhas Referring Provider Last Name Ugo Referring Provider Specialty Family Prac sukhjinder Referred Organization [facility] Referred Address [address] [place], [place],[address] Referred Provider Specialty Rheumatology Referral Priority Routine General Notes Zaida Tinsley 10:11:01 AM >received today, completed referral form and faxed to their referring physicians department. Patient will be contacted by the CC to schedule her appointment. Specialty Diagnoses / Procedures Referred By Contac t Referred To Contact Cardiology Diagnoses Aortic valve stenosis, etiology of cardiac valve disease unspecified Procedures Transthoracic Echo (TTE) Complete [facility] TTHRC R-T 2D W/WOM-MODE COMPL SPEC&COLR D Shy Wolf MD [address] [place] [address] [address], [address] [address] Referral ID Status Reason Start Date Expiration Date Visits Requested Visits Authorized Pending Review Perform Procedure 06/19/2023 06/18/2024 1 1 Specialty Diagnoses / Procedures Referred By Contac t Referred To Contact Cardiology Diagnoses Aortic valve stenosis, etiology of cardiac valve disease unspecified Procedures Follow Up In Cardiology Shy Wolf MD [address] [facility] 2, [address] [address] Shy Wolf MD [address] [place] [address] [address], [address] [address] Referral ID Status Reason Start Date Expiration Date V isits Requested Visits Authorized [id number] Authorized 06/19/2023 06/18/2024 1 1 Additional Source Comments REASON FOR VISIT (unrecogniz ed section and content) Reason Comments Follow-up 6m INFORMATION SOURCE (unrecogn ized section and content) DATE CREATED AUTHOR 03/06/2022 [facility] DATE CREATED AUTHOR AUTHOR'S ORGANIZ ATION 12/25/2022 [facility] DATE CREATED AUTHOR AUTHOR'S ORGANIZ ATION 12/25/2022 [facility] DATE CREATED AUTHOR AUTHOR'S ORGANIZ ATION 03/03/2023 [facility] DATE CREATED AUTHOR AUTHOR'S ORGANIZ ATION 06/22/2023 [facility] DATE CREATED AUTHOR AUTHOR'S ORGANIZ ATION 09/04/2023 [facility] DATE CREATED AUTHOR AUTHOR'S ORGANIZ ATION 09/16/2023 [facility] Care Teams (unrecognized sec tion and content) Tie Sawyer Relationship Specialty Start Date End Date Suhas [...] BE BASED ON THE PRIMARY CLINICAL RECORDS. [facility]. provides no warranty or guarantee of the accuracy or completeness of information in this document.
[2023-09-29 10:10] VITALS: BP 161/61; PULSE 53; TEMP 36.8; O2SAT 99
[2023-09-29] MEDS: LIDOCAINE HCL 2% PF 100 MG/5 ML VIAL INJ (10:43)
[2023-09-29] MEDS: 0.9 % SODIUM CHLORIDE 10 ML SYRINGE - SALINE FLUSH INJ (10:43)
[2023-09-29] MEDS: BUPIVACAINE HCL 0.25% PF 25 MG/10 ML VIAL INJ (10:43)
[2023-09-29] MEDS: IOHEXOL 240 MG/ML - 10 ML VIAL INJ (10:43)
[2023-09-29] MEDS: TRIAMCINOLONE ACETONIDE 40 MG/ML VIAL INJ (10:43)
[2023-09-29 10:44] VITALS: BP 143/72; PULSE 57; O2SAT 100
[2023-09-29 10:46] VITALS: BP 132/60; PULSE 56; O2SAT 100
--- NOTE | 2023-09-29 10:47 | P.ON_ITS ---
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 Informed consent was obtained and placed on the chart.? Patient was brought to the medical procedure unit and placed in the prone position where a timeout was completed verifying the correct patient, procedure site, position, and planned special equipment using sterile aseptic technique.? Under direct fluoroscopic visualization a 25-gauge Quincke tipped spinal needle was advanced to the designated neural foramen where contrast dye was injected to show adequate spread.? The needle was inserted at level left L4-5. There was no evidence of vascular or adverse uptake.? Epidural spread was appreciated.? The above- mentioned injectate was then placed in a 1.5 mL aliquot preceded by negative aspiration.? The needle was removed. The needle was inserted and the procedure repeated at level left L5-S1.? The surgery site was covered.? Patient was taken to the postprocedural recovery area and monitored for an appropriate length of time before found suitable for discharge in the accompaniment of a responsible adult. Anesthesia: Local Surgeon: Gloria Weston Pathology: none sent Condition: stable Disposition: no change
== END 2023-09-29 10:54 | disposition home or self-care (01) ==
LOC: SURGOUT 09:42
PROVIDERS: PCP Family Medicine; Visit Provider Anesthesiology
DX: M48.062 Spinal stenosis, lumbar region with neurogenic claudication (principal)
CPT/HCPCS: 64483; 64484; Q9966

== ENCOUNTER 2023-10-09 10:14 | Outpatient (OUT) | payer MEDICARE, OTHER, SELFPAY ==
--- OUTSIDE RECORDS SUMMARY | 2023-10-09 10:29 | XMS_ITS | CCD ---
Author Organization [facility] Care Team Providers Care Luncheonette Manager Name Role Phone Suhas Garrett Unavailable Suhas [...] Suhas Liang Primary Care Unavaila ble WOLFSHY BLACKBURN Attending Unavail able Suhas Garrett DO Primary Care Provider SHY WOLF Attending Unavailable SUHAS GARRETT Primary Care Unavailable Suhas Garrett Primary Care Unavailable Suhas Garrett Admitting Unavailable Suhas Garrett Attending Unavailable Suhas Garrett Primary Care Unavailable Suhas Garrett Admitting Unavailable Suhas Garrett Attending Unavailable KunSuhas arellano Admitting Unavailable Suhas Garrett Attending Unavailable Suhas Garrett Primary Care Unavailable Gieditis , Gloria Gautam Attending Unavailable Giedraitis , Andrius Vytgeorge Attending Unavailable Gieditis , Andrius Vytgeorge Attending Unavailable Allergies Allergy Classification Reported Allergen(s) Allergy Type Date of Onset Reaction(s) Facility (20 sources) Alendronate; Translations: [Fosamax] Drug Allergy 3 Unknown, Other [facility] 3 Repository (20 sources) Amoxicillin; Translations: [amoxicillin] Drug Allergy 9 hives [facility] impok Other (20 sources) Phenytoin; Translations: [Dilantin CAPS] Drug Allergy 3 Rash [facility] impok Other (20 sources) Valproate; Translations: [Depakote ER TB24] Drug Allergy Unknown [facility] impok Other (1 source) Alendronate Drug Allergy [facility] Repository (1 source) Amoxicillin Drug Allergy [facility] Repository (1 source) Phenytoin Drug Allergy [facility] Repository (1 source) Valproate Drug Allergy [facility] Repository (20 sources) Acetaminophen / HYDROcodone Drug Allergy elevated liver enzymes [facility] impok Other (1 source) Alendronate Drug Allergy 3 [facility] (2 sources) HYDROcodone; Translations: [HYDROCODONE] Drug Allergy 4 [facility] Work Phone: (2 sources) Valproate; Translations: [VALPROIC ACID] Drug Allergy 3 [facility] Work Phone: (1 source) Acetaminophen Drug Allergy 4 [facility] Repository (1 source) Alendronate Drug Allergy 4 [facility] Repository (1 source) Amoxicillin Drug Allergy 4 [facility] Repository (1 source) HYDROcodone Drug Allergy 4 [facility] Repository (1 source) Phenytoin Drug Allergy 4 [facility] Repository (1 source) Valproate Drug Allergy 4 [facility] Repository Medications Current Medications Medication Drug [...] Start: 01-09-2022 take 1 tablet by barb three times daily at mealtime as needed [...] tablet by mouth once daily. 0 Active [place] 3 1000 MG (20 sources) take 1 capsule by mouth once daily [place] 3 1000 MG 1 capsule with a [...] Start: 12-06-2022 take 1 tablet by barb every other day predniSONE 2.5 MG 1 [...] Start: 07-05-2023 take 1 tablet by barb th every twenty-four hours traMADol HCl 50 MG [...] take 1 capsule by mouth once daily [place]-3 Fish Oil 1000 MG Oral Capsule TAKE [...] 0 Refills: 0 Ordered: 13-Dec-2021 DO Active [place] 3 500 CAPS (4 sources) [place] 3 500 CAPS TAKE 1 CAPSULE Daily [...] Coronary arteriosclerosis; 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 [place] coronary artery without angina pectoris] Onset: 09-03-2023 [...] fracture] Chronic Other aftercare (1 source) 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 Performed By: #### C MP, TSH3, CBC, T4F #### [place] [address] [place] #### THY AB #### [facility] , Basophils/100 WBC (Bld) 0.7 % Normal . [facility] Comment on above: Performed By: #### C MP, TSH3, CBC, T4F #### [facility] [address] [place] [address] [place] #### THY AB #### [facility] , Eosinophils (Bld) [#/Vol] 0.1 10*3/uL Normal 0.0-0.45 [facility] Comment on above: Performed By: #### C MP, TSH3, CBC, T4F #### [address] #### THY AB #### [facility] , Eosinophils/100 WBC (Bld) 1.6 % Normal . [facility] Comment on above: Performed By: #### C MP, TSH3, CBC, T4F #### [address] #### THY AB #### [facility] , Erythrocyte distribution width (RBC) [Ratio] 14.8 % Normal 11.9-15.3 [facility] Comment on above: Performed By: #### C MP, TSH3, CBC, T4F #### [place] [address] [place] #### THY AB #### [facility] , Hematocrit (Bld) [Volume fraction] 39.9 % Normal 34.0-46.4 [facility] Comment on above: Performed By: #### C MP, TSH3, CBC, T4F #### [place] [address] [place] #### THY AB #### [facility] , Hemoglobin (Bld) [Mass/Vol] 13.2 g/dL Normal 11.8-15.4 [facility] Comment on above: Performed By: #### C MP, TSH3, CBC, T4F #### [place] [address] [place] #### THY AB #### [facility] , Lymphocytes (Bld) [#/Vol] 2.6 10*3/uL Normal 1.00-4.8 [facility] Comment on above: Performed By: #### C MP, TSH3, CBC, T4F #### [facility] [address] [place] [address] #### THY AB #### [facility] , Lymphocytes/100 WBC (Bld) 43.5 % Normal . [facility] Comment on above: Performed By: #### C MP, TSH3, CBC, T4F #### [facility] [address] [place] [address] #### THY AB #### [facility] , MCH (RBC) [Entitic mass] 33.2 pg Normal 24.7-34.3 [facility] Comment on above: Performed By: #### C MP, TSH3, CBC, T4F #### [facility] [address] [place] [address] #### THY AB #### [facility] , MCV (RBC) [Entitic vol] 100.5 fL High 80-100 [facility] Comment on above: Performed By: #### C MP, TSH3, CBC, T4F #### [address] #### THY AB #### [facility] , Mean Corpuscular HGB Conc 33.0 g/dL Normal 32.0-35.0 [facility] Comment on above: Performed By: #### C MP, TSH3, CBC, T4F #### [facility] [address] [place] [address] [place] #### THY AB #### [facility] , Monocytes (Bld) [#/Vol] 0.6 10*3/uL Normal 0.0-0.8 [facility] Comment on above: Performed By: #### C MP, TSH3, CBC, T4F #### [address] [place] [address] [place] #### THY AB #### [facility] , Monocytes/100 WBC (Bld) 9.7 % Normal . [facility] Comment on above: Performed By: #### C MP, TSH3, CBC, T4F #### [facility] [address] [place] [address] #### THY AB #### [facility] , Neutrophils (Bld) [#/Vol] 2.7 10*3/uL Normal 1.8-7.7 [facility] Comment on above: Performed By: #### C MP, TSH3, CBC, T4F #### [address] #### THY AB #### [facility] , Neutrophils/100 WBC (Bld) 44.5 % Normal . [facility] Comment on above: Performed By: #### C MP, TSH3, CBC, T4F #### [address] #### THY AB #### [facility] , NRBC% 0.2 /100{WBC} Normal 0-0.5 [facility] Comment on above: Performed By: #### C MP, TSH3, CBC, T4F #### [facility] [address] [place] [address] [place] #### THY AB #### [facility] , Platelet mean volume (Bld) [Entitic vol] 9.2 fL Normal 6.3-10.7 [facility] Comment on above: Performed By: #### C MP, TSH3, CBC, T4F #### [facility] [address] [place] [address] [place] #### THY AB #### [facility] , Platelets (Bld) [#/Vol] 229 10*3/uL Normal 150-450 [facility] Comment on above: Performed By: #### C MP, TSH3, CBC, T4F #### [facility] [address] [place] [address] #### THY AB #### [facility] , RBC (Bld) [#/Vol] 3.98 10*6/uL Normal 3.60-5.00 [facility] Comment on above: Performed By: #### C MP, TSH3, CBC, T4F #### [facility] [address] [place] [address] [place] #### THY AB #### [facility] , WBC (Bld) [#/Vol] 6.0 10*3/uL Normal 3.8-11.6 [facility] Comment on above: Performed By: #### C MP, TSH3, CBC, T4F #### [address] #### THY AB #### [facility] , Comprehensive Metabolic Pane nory 09-03-2023 Albumin [Mass/Vol] 3.8 g/dL Normal 3.5-5.7 [facility] Comment on above: Performed By: #### C MP, TSH3, CBC, T4F #### [facility] [address] [place] [address] #### THY AB #### [facility] , Albumin/Globulin [Mass ratio] 1.7 {ratio} Normal [facility] Comment on above: Performed By: #### C MP, TSH3, CBC, T4F #### [facility] [address] [place] [address] [place] #### THY AB #### [facility] , ALP [Catalytic activity/Vol] 72 U/L Normal 34-104 [facility] Comment on above: Performed By: #### C MP, TSH3, CBC, T4F #### [facility] [address] [place] [address] [place] #### THY AB #### [facility] , ALT [Catalytic activity/Vol] 43 U/L Normal 7-52 [facility] Comment on above: Performed By: #### C MP, TSH3, CBC, T4F #### [facility] [address] [place] [address] [place] #### THY AB #### [facility] , Anion gap [Moles/Vol] 8.9 mmol/L Normal 6.0-15.0 [facility] Comment on above: Performed By: #### C MP, TSH3, CBC, T4F #### [facility] [address] [place] [address] #### THY AB #### [facility] , AST [Catalytic activity/Vol] 23 U/L Normal 13-39 [facility] Comment on above: Performed By: #### C MP, TSH3, CBC, T4F #### [facility] [address] [place] [address] [place] #### THY AB #### [facility] , Bilirubin [Mass/Vol] 1.2 mg/dL High 0.3-1.0 [facility] Comment on above: Performed By: #### C MP, TSH3, CBC, T4F #### [facility] [address] [place] [address] #### THY AB #### [facility] , Calcium [Mass/Vol] 9.5 mg/dL Normal 8.6-10.3 [facility] Comment on above: Performed By: #### C MP, TSH3, CBC, T4F #### [facility] [address] [place] [address] [place] #### THY AB #### [facility] , Chloride [Moles/Vol] 107 mmol/L Normal 98-107 [facility] Comment on above: Performed By: #### C MP, TSH3, CBC, T4F #### [facility] [address] [place] [address] [place] #### THY AB #### [facility] , CO2 [Moles/Vol] 30.0 mmol/L Normal 21.0-31.0 [facility] Comment on above: Performed By: #### C MP, TSH3, CBC, T4F #### [place] [address] [place] #### THY AB #### [facility] , Creatinine [Mass/Vol] 0.76 mg/dL Normal 0.60-1.20 [facility] Comment on above: Performed By: #### C MP, TSH3, CBC, T4F #### [place] [address] [place] #### THY AB #### [facility] , GFR/1.73 sq M.predicted MDRD (S/P/Bld) [Vol rate/Area] mL/min/{1.73_m2} [facility] Comment on above: Performed By: #### C MP, TSH3, CBC, T4F #### [address] #### THY AB #### [facility] , Globulin (S) [Mass/Vol] 2.2 g/dL [facility] Comment on above: Performed By: #### C MP, TSH3, CBC, T4F #### [place] [address] [place] #### THY AB #### [facility] , Glucose [Mass/Vol] 79 mg/dL Normal 70-100 [facility] Comment on above: Result Comment: [place] om Glucose Reference Range is dependent on time and content of last meal. Glucose of more than 200 mg/dL in a nonstressed, ambulatory subject supports the diagnosis of Diabetes Mellitus. ADA recommended reference range Performed By: #### C MP, TSH3, CBC, T4F #### [place] [address] [place] #### THY AB #### [facility] , Potassium [Moles/Vol] 3.9 mmol/L Normal 3.5-5.1 [facility] Comment on above: Performed By: #### C MP, TSH3, CBC, T4F #### [facility] [address] [place] [address] #### THY AB #### [facility] , Protein [Mass/Vol] 6.0 g/dL Low 6.4-8.9 [facility] Comment on above: Performed By: #### C MP, TSH3, CBC, T4F #### [facility] [address] [place] [address] [place] #### THY AB #### [facility] , Sodium [Moles/Vol] 142 mmol/L Normal 136-145 [facility] Comment on above: Performed By: #### C MP, TSH3, CBC, T4F #### [facility] [address] [place] [address] [place] #### THY AB #### [facility] , Urea nitrogen [Mass/Vol] 22 mg/dL Normal 7-25 [facility] Comment on above: Performed By: #### C MP, TSH3, CBC, T4F #### [place] [address] [place] #### THY AB #### [facility] , Lipid Panelon 09-03-2023 Cholesterol [Mass/Vol] 243 mg/dL High 140-200 [facility] Comment on above: Result Comment: Chol less than 200 mg/dl low risk Chol 201-239 mg/dl borderline risk Chol 240 mg/dl and greater high risk Performed By: #### C MP, TSH3, CBC, T4F #### [facility] [address] [place] [address] [place] #### THY AB #### [facility] , Cholesterol in HDL [Mass/Vol] 98 mg/dL High 23-92 [facility] Comment on above: Result Comment: HDL CHOL ATP-III CLASSIFICATION Cardiovascular Risk HDL > or equal to 60 mg/dL LOW HDL < 40 mg/dL HIGH Performed By: #### C MP, TSH3, CBC, T4F #### [facility] [address] [place] [address] [place] #### THY AB #### [facility] , Cholesterol.total/Cho lesterol in HDL [Mass ratio] 2.5 {ratio} Normal <5.0 [facility] Comment on above: Performed By: #### C MP, TSH3, CBC, T4F #### [address] #### THY AB #### [facility] , LDL Cholesterol,Calculate d 121 mg/dL High 0-100 [facility] Comment on above: Result Comment: LDL ATP III CLASSIFICATION LDL less than 100 mg/dL Optimal LDL 100-129 mg/dL Near or above optimal LDL 130-159 mg/dL Borderline high LDL 160-189 mg/dL High LDL greater than 189 mg/dL Very high Performed By: #### C MP, TSH3, CBC, T4F #### [place] [address] [place] #### THY AB #### [facility] , Triglyceride w/Reflex 122 mg/dL Normal 0-149 [facility] Comment on above: Result Comment: TRIG ATP III CLASSIFICATION TRIG less than 150 mg/dL Normal TRIG 150-199 mg/dL Borderline high TRIG 200-500 mg/dL High TRIG greater than 500 mg/dL Very high Standard traceable to the Center for Disease Conrtrol and Prevention (CDC) test method. Performed By: #### C MP, TSH3, CBC, T4F #### [facility] [address] [place] [address] [place] #### THY AB #### [facility] , VLDL CHOLESTEROL 24 mg/dL Normal [facility] Comment on above: Performed By: #### C MP, TSH3, CBC, T4F #### [place] [address] [place] #### THY AB #### [facility] , Thyroid Stimulating Hormoneo n 09-03-2023 TSH Qn 4.01 m[IU]/L Normal 0.45-5.33 [facility] Comment on above: Result Comment: PERF ORMED BY: [facility] [address] [place] [address] PATHOLOGIST OCCUPATIONAL SAFETY SPECIALIST JODY SOLANO M.D. Performed By: #### C MP, TSH3, CBC, T4F #### [facility] [address] #### THY AB #### [facility] , Complete Blood Count Auto Di ffon 07-08-2023 Basophils (Bld) [#/Vol] 0.391953159 10*3/uL Normal 0.0-0.2 10*3/uL [facility] Other Basophils/100 WBC (Bld) 0.900 % . % [facility] Other Eosinophils (Bld) [#/Vol] 0.363076689 10*3/uL Normal 0.0-0.45 10*3/uL [facility] Other Eosinophils/100 WBC (Bld) 1.100 % . % [facility] Other Erythrocyte distribution width (RBC) [Ratio] 14.000 % Normal 11.9-15.3 % [facility] Other Hematocrit (Bld) [Volume fraction] 37.700 % Normal 34.0-46.4 % [facility] Other Hemoglobin (Bld) [Mass/Vol] 12.111231 g/dL Normal 11.8-15.4 g/dL [facility] Other Lymphocytes (Bld) [#/Vol] 2.406928103 10*3/uL Normal 1.00-4.8 10*3/uL [facility] Other Lymphocytes/100 WBC (Bld) 35.100 % . % [facility] Other MCH (RBC) [Entitic mass] 33.3000 pg Normal 24.7-34.3 pg [facility] Other MCV (RBC) [Entitic vol] 99.7000 fL Normal 80-100 fL [facility] Other Monocytes (Bld) [#/Vol] 0.463515096 10*3/uL Normal 0.0-0.8 10*3/uL [facility] Other Monocytes/100 WBC (Bld) 10.000 % . % [facility] Other Neutrophils (Bld) [#/Vol] 3.248615276 10*3/uL Normal 1.8-7.7 10*3/uL [facility] Other Neutrophils/100 WBC (Bld) 52.900 % . % [facility] Other Platelet mean volume (Bld) [Entitic vol] 9.9000 fL Normal 6.3-10.7 fL [facility] Other WBC (Bld) [#/Vol] 7.037034409 10*3/uL Normal 3.8 -11.6 10*3/uL [facility] Other Complete Blood Count Auto Diff 7.1 10*3/uL Normal 3.8-11.6 10*3/uL [facility] Other Complete Blood Count Auto Diff 33.4 g/dL Normal 32.0-35.0 g/dL [facility] Other Complete Blood Count Auto Diff 0.1 /100{WBC} Normal 0-0.5 /100{WBC} [facility] Other Basophils (Bld) [#/Vol] 0.1 10*3/uL Normal 0.0-0.2 [facility] Comment on above: Order Comment: Reaso n for Exam Hyperthyroidism Result Comment: PERF ORMED BY: [place] [address] PATHOLOGIST OCCUPATIONAL SAFETY SPECIALIST JODY SOLANO M.D. Performed By: #### C MP, TSH3, CBC, T4F #### [facility] [address] [place] [address] #### THY AB #### [facility] , Basophils/100 WBC (Bld) 0.9 % Normal . [facility] Comment on above: Order Comment: Reaso n for Exam Hyperthyroidism Performed By: #### C MP, TSH3, CBC, T4F #### [facility] [address] [place] [address] #### THY AB #### [facility] , Eosinophils (Bld) [#/Vol] 0.1 10*3/uL Normal 0.0-0.45 [facility] Comment on above: Order Comment: Reaso n for Exam Hyperthyroidism Performed By: #### C MP, TSH3, CBC, T4F #### [facility] [address] [place] [address] #### THY AB #### [facility] , Eosinophils/100 WBC (Bld) 1.1 % Normal . [facility] Comment on above: Order Comment: Reaso n for Exam Hyperthyroidism Performed By: #### C MP, TSH3, CBC, T4F #### [facility] [address] [place] [address] #### THY AB #### [facility] , Erythrocyte distribution width (RBC) [Ratio] 14.0 % Normal 11.9-15.3 [facility] Comment on above: Order Comment: Reaso n for Exam Hyperthyroidism Performed By: #### C MP, TSH3, CBC, T4F #### [facility] [address] [place] [address] #### THY AB #### [facility] , Hematocrit (Bld) [Volume fraction] 37.7 % Normal 34.0-46.4 [facility] Comment on above: Order Comment: Reaso n for Exam Hyperthyroidism Performed By: #### C MP, TSH3, CBC, T4F #### [facility] [address] [place] [address] #### THY AB #### [facility] , Hemoglobin (Bld) [Mass/Vol] 12.6 g/dL Normal 11.8-15.4 [facility] Comment on above: Order Comment: Reaso n for Exam Hyperthyroidism Performed By: #### C MP, TSH3, CBC, T4F #### [facility] [address] [place] [address] #### THY AB #### [facility] , Lymphocytes (Bld) [#/Vol] 2.5 10*3/uL Normal 1.00-4.8 [facility] Comment on above: Order Comment: Reaso n for Exam Hyperthyroidism Performed By: #### C MP, TSH3, CBC, T4F #### [address] #### THY AB #### [facility] , Lymphocytes/100 WBC (Bld) 35.1 % Normal . [facility] Comment on above: Order Comment: Reaso n for Exam Hyperthyroidism Performed By: #### C MP, TSH3, CBC, T4F #### [address] #### THY AB #### [facility] , MCH (RBC) [Entitic mass] 33.3 pg Normal 24.7-34.3 [facility] Comment on above: Order Comment: Reaso n for Exam Hyperthyroidism Performed By: #### C MP, TSH3, CBC, T4F #### [facility] [address] [place] [address] [place] #### THY AB #### [facility] , MCV (RBC) [Entitic vol] 99.7 fL Normal 80-100 [facility] Comment on above: Order Comment: Reaso n for Exam Hyperthyroidism Performed By: #### C MP, TSH3, CBC, T4F #### [place] [address] [place] #### THY AB #### [facility] , Mean Corpuscular HGB Conc 33.4 g/dL Normal 32.0-35.0 [facility] Comment on above: Order Comment: Reaso n for Exam Hyperthyroidism Performed By: #### C MP, TSH3, CBC, T4F #### [place] [address] [place] #### THY AB #### [facility] , Monocytes (Bld) [#/Vol] 0.7 10*3/uL Normal 0.0-0.8 [facility] Comment on above: Order Comment: Reaso n for Exam Hyperthyroidism Performed By: #### C MP, TSH3, CBC, T4F #### [place] [address] [place] #### THY AB #### [facility] , Monocytes/100 WBC (Bld) 10.0 % Normal . [facility] Comment on above: Order Comment: Reaso n for Exam Hyperthyroidism Performed By: #### C MP, TSH3, CBC, T4F #### [address] #### THY AB #### [facility] , Neutrophils (Bld) [#/Vol] 3.7 10*3/uL Normal 1.8-7.7 [facility] Comment on above: Order Comment: Reaso n for Exam Hyperthyroidism Performed By: #### C MP, TSH3, CBC, T4F #### [facility] [address] [place] [address] [place] #### THY AB #### [facility] , Neutrophils/100 WBC (Bld) 52.9 % Normal . [facility] Comment on above: Order Comment: Reaso n for Exam Hyperthyroidism Performed By: #### C MP, TSH3, CBC, T4F #### [place] [address] [place] #### THY AB #### [facility] , NRBC% 0.1 /100{WBC} Normal 0-0.5 [facility] Comment on above: Order Comment: Reaso n for Exam Hyperthyroidism Performed By: #### C MP, TSH3, CBC, T4F #### [facility] [address] [place] [address] [place] #### THY AB #### [facility] , Platelet mean volume (Bld) [Entitic vol] 9.9 fL Normal 6.3-10.7 [facility] Comment on above: Order Comment: Reaso n for Exam Hyperthyroidism Performed By: #### C MP, TSH3, CBC, T4F #### [address] #### THY AB #### [facility] , Platelets (Bld) [#/Vol] 224 10*3/uL Normal 150-450 [facility] Other Comment on above: Order Comment: Reaso n for Exam Hyperthyroidism Performed By: #### C MP, TSH3, CBC, T4F #### [address] #### THY AB #### [facility] , RBC (Bld) [#/Vol] 3.78 10*6/uL Normal 3.60-5.00 [facility] Other Comment on above: Order Comment: Reaso n for Exam Hyperthyroidism Performed By: #### C MP, TSH3, CBC, T4F #### [facility] [address] [place] [address] [place] #### THY AB #### [facility] , WBC (Bld) [#/Vol] 7.1 10*3/uL Normal 3.8-11.6 [facility] Comment on above: Order Comment: Reaso n for Exam Hyperthyroidism Performed By: #### C MP, TSH3, CBC, T4F #### [facility] [address] [place] [address] [place] #### THY AB #### [facility] , Comprehensive Metabolic Pane nory 07-08-2023 Albumin [Mass/Vol] 3.888283 g/dL Normal 3.5-5.7 g/dL [facility] Other Bilirubin [Mass/Vol] 0.5610659 mg/dL Normal 0.3- 1.0 mg/dL [facility] Other Calcium [Mass/Vol] 9.2115004 mg/dL Normal 8.6-10 .3 mg/dL [facility] Other CO2 [Moles/Vol] 30.49810451 mmol/L Normal 21.0-3 1.0 mmol/L [facility] Other Creatinine [Mass/Vol] 0.58512069 mg/dL Normal 0. 60-1.20 mg/dL [facility] Other Potassium [Moles/Vol] 3.73669759 mmol/L Normal 3 .5-5.1 mmol/L [facility] Other Protein [Mass/Vol] 6.404109 g/dL Low 6.4-8.9 g/dL [facility] Other Comprehensive Metabolic Panel 2.2 g/dL [facility] Other Albumin [Mass/Vol] 3.8 g/dL Normal 3.5-5.7 [facility] Comment on above: Order Comment: Reaso n for Exam Hyperthyroidism Performed By: #### C MP, TSH3, CBC, T4F #### [facility] [address] [place] [address] [place] #### THY AB #### [facility] , Albumin/Globulin [Mass ratio] 1.7 {ratio} Normal [facility] Other Comment on above: Order Comment: Reaso n for Exam Hyperthyroidism Performed By: #### C MP, TSH3, CBC, T4F #### [facility] [address] [place] [address] #### THY AB #### [facility] , ALP [Catalytic activity/Vol] 140 U/L High 34-104 [facility] Other Comment on above: Order Comment: Reaso n for Exam Hyperthyroidism Performed By: #### C MP, TSH3, CBC, T4F #### [facility] [address] [place] [address] #### THY AB #### [facility] , ALT [Catalytic activity/Vol] 71 U/L High 7-52 [facility] MXR [facility] Other Comment on above: Order Comment: Reaso n for Exam Hyperthyroidism Performed By: #### C MP, TSH3, CBC, T4F #### [facility] [address] [place] [address] #### THY AB #### [facility] , Anion gap [Moles/Vol] 9.0 mmol/L Normal 6.0-15.0 [facility] Comment on above: Order Comment: Reaso n for Exam Hyperthyroidism Performed By: #### C MP, TSH3, CBC, T4F #### [facility] [address] [place] [address] #### THY AB #### [facility] , AST [Catalytic activity/Vol] 20 U/L Normal 13-39 Effcon MXR [facility] impok Other Comment on above: Order Comment: Reaso n for Exam Hyperthyroidism Performed By: #### C MP, TSH3, CBC, T4F #### [facility] [address] [place] [address] [place] #### THY AB #### [facility] , Bilirubin [Mass/Vol] 0.7 mg/dL Normal 0.3-1.0 [facility] Comment on above: Order Comment: Reaso n for Exam Hyperthyroidism Performed By: #### C MP, TSH3, CBC, T4F #### [facility] [address] [place] [address] [place] #### THY AB #### [facility] , Calcium [Mass/Vol] 9.4 mg/dL Normal 8.6-10.3 [facility] Comment on above: Order Comment: Reaso n for Exam Hyperthyroidism Performed By: #### C MP, TSH3, CBC, T4F #### [facility] [address] [place] [address] #### THY AB #### [facility] , Chloride [Moles/Vol] 107 mmol/L Normal 98-107 [facility] [employer] Other Comment on above: Order Comment: Reaso n for Exam Hyperthyroidism Performed By: #### C MP, TSH3, CBC, T4F #### [facility] [address] [place] [address] #### THY AB #### [facility] , CO2 [Moles/Vol] 30.7 mmol/L Normal 21.0-31.0 [facility] Comment on above: Order Comment: Reaso n for Exam Hyperthyroidism Performed By: #### C MP, TSH3, CBC, T4F #### [facility] [address] [place] [address] #### THY AB #### [facility] , Creatinine [Mass/Vol] 0.76 mg/dL Normal 0.60-1.20 [facility] Comment on above: Order Comment: Reaso n for Exam Hyperthyroidism Performed By: #### C MP, TSH3, CBC, T4F #### [facility] [address] [place] [address] [place] #### THY AB #### [facility] , GFR/1.73 sq M.predicted MDRD (S/P/Bld) [Vol rate/Area] mL/min/{1.73_m2} Normal [place] [facility] Other Comment on above: Order Comment: Reaso n for Exam Hyperthyroidism Performed By: #### C MP, TSH3, CBC, T4F #### [facility] [address] [place] [address] [place] #### THY AB #### [facility] , Globulin (S) [Mass/Vol] 2.2 g/dL Normal [facility] Comment on above: Order Comment: Reaso n for Exam Hyperthyroidism Performed By: #### C MP, TSH3, CBC, T4F #### [facility] [address] [place] [address] [place] #### THY AB #### [facility] , Glucose [Mass/Vol] 89 mg/dL Normal 70-100 [facility] impok Other Comment on above: Order Comment: Reaso n for Exam Hyperthyroidism Result Comment: [place] Glucose Reference Range is dependent on time and content of last meal. Glucose of more than 200 mg/dL in a nonstressed, ambulatory subject supports the diagnosis of Diabetes Mellitus. ADA recommended reference range Performed By: #### C MP, TSH3, CBC, T4F #### [facility] [address] [place] [address] [place] #### THY AB #### [facility] , Potassium [Moles/Vol] 3.7 mmol/L Normal 3.5-5.1 [facility] Comment on above: Order Comment: Reaso n for Exam Hyperthyroidism Performed By: #### C MP, TSH3, CBC, T4F #### [facility] [address] [place] [address] [place] #### THY AB #### [facility] , Protein [Mass/Vol] 6.0 g/dL Low 6.4-8.9 [facility] Comment on above: Order Comment: Reaso n for Exam Hyperthyroidism Performed By: #### C MP, TSH3, CBC, T4F #### [facility] [address] [place] [address] [place] #### THY AB #### [facility] , Sodium [Moles/Vol] 143 mmol/L Normal 136-145 [facility] impok Other Comment on above: Order Comment: Reaso n for Exam Hyperthyroidism Performed By: #### C MP, TSH3, CBC, T4F #### [facility] [address] [place] [address] [place] #### THY AB #### [facility] , Urea nitrogen [Mass/Vol] 21 mg/dL Normal 7-25 [facility] impok Other Comment on above: Order Comment: Reaso n for Exam Hyperthyroidism Performed By: #### C MP, TSH3, CBC, T4F #### [facility] [address] [place] [address] #### THY AB #### [facility] , Free T4 (Free Thyroxine)on 0 07-08-2023 Free T4 [Mass/Vol] 1.89191425 ng/dL High 0.61- 1.12 ng/dL [facility] impok Other Free T4 [Mass/Vol] 1.46 ng/dL High 0.61-1.12 [facility] Comment on above: Order Comment: Reaso n for Exam Hyperthyroidism Performed By: #### C MP, TSH3, CBC, T4F #### [facility] [address] [place] [address] [place] #### THY AB #### [facility] , Thyroid Antibodies TPO+Tg Ab on 07-08-2023 Thyroid Antibodies TPO+Tg Ab 11 0-34 Effcon MXR [facility] impok Other Thyroid Antibodies TPO+Tg Ab <1.0 0.0-0.9 [facility] Other Antithyroglobulin Ab <1.0 Normal 0.0-0.9 [facility] Comment on above: Order Comment: Reaso n for Exam Hyperthyroidism Result Comment: Thyr oglobulin Antibody measured by [employer] Performed at: CB - [facility] [id number] [employer]: Antonino Belle PhD, Phone: [phone] PERFORMED BY: [place] [address] PATHOLOGIST OCCUPATIONAL SAFETY SPECIALIST JODY SOLANO M.D. Performed By: #### C MP, TSH3, CBC, T4F #### [place] [address] [place] #### THY AB #### [facility] , Thyroid Peroxidase Antibodies 11 Normal 0-34 [facility] Comment on above: Order Comment: Reaso n for Exam Hyperthyroidism Performed By: #### C MP, TSH3, CBC, T4F #### [place] [address] [place] #### THY AB #### [facility] , Thyroid Stimulating Hormoneo n 07-08-2023 TSH Qn 2.62921316153 m[IU]/L Normal 0.45-5.33 u[iU]/mL [facility] Other TSH Qn 2.42 m[IU]/L Normal 0.45-5.33 [facility] Comment on above: Order Comment: Reaso n for Exam Hyperthyroidism Result Comment: PERF ORMED BY: [place] [address] PATHOLOGIST OCCUPATIONAL SAFETY SPECIALIST JODY SOLANO M.D. Performed By: #### C MP, TSH3, CBC, T4F #### [place] [address] [place] #### THY AB #### [facility] , AUGUST Antinuclear Antibodieson 07-04-2023 Antinuclear Abs, IFA Positive Critically abnormal . [facility] Comment on above: Result Comment: Nega tive <1:80 Borderline 1:80 Positive >1:80 Speckled cytoplasmic fluorescence is present. The antibodies noted in this pattern may be associated with, but not restricted to, primary biliary cirrhosis (PBC), polymyositis and dermatomyositis (PM/DM), and/or systemic lupus erythematosus (SLE). Performed By: #### C MP, TSH3, CBC, T4F #### [facility] [address] [place] [address] [place] #### THY AB #### [facility] , Homogeneous Pattern 1:160 High . [facility] Comment on above: Result Comment: ICAP nomenclature: [id number] Performed By: #### C MP, TSH3, CBC, T4F #### [facility] [address] [place] [address] [place] #### THY AB #### [facility] , Note 1 Normal . [facility] Comment on above: Result Comment: Lucita marshall Potential Disease Association Homogeneous Systemic Lupus Erythematosus, Drug Induced Systemic Lupus Erythematosus, Chronic Autoimmune hepatitis, Juvenile Idiopathic Arthritis Speckled Sjogren Syndrome, Systemic Lupus Erythematosus, Subacute Cutaneous Lupus, Lupus, Congenital Heart Block, Mixed Connective Tissue Disease, Scleroderma-diffuse, Scleroderma-Autoimmune Myositis Overlap Syndrome, Systemic Lupus Mztgjkjynhtee-Todzzzituni-Xysqfxhlct Myositis Overlap Syndrome, Systemic Autoimmune Rheumatic Disease, [...] Cytopenias, Linear Scleroderma, Antiphospholipid Syndrome Performed at: [employer] [id number] [employer]: Antonino Belle PhD, Phone: [phone] Performed By: #### C MP, TSH3, CBC, T4F #### [address] #### THY AB #### [facility] , Anti-Streptolysin O Antibody on 07-04-2023 Anti-Streptolysin O Antibody <20.0 Normal 0.0-200.0 [facility] Comment on above: Result Comment: Perf ormed at: [address] [id number] [employer]: Antonino Belle PhD, Phone: [phone] PERFORMED BY: [place] [address] PATHOLOGIST OCCUPATIONAL SAFETY SPECIALIST JODY SOLANO M.D. Performed By: #### C MP, TSH3, CBC, T4F #### [place] [address] [place] #### THY AB #### [facility] , C-Reactive Proteinon 024 C-Reactive Protein 0.5 mg/dL Normal 0.0-0.5 [facility] Comment on above: Performed By: #### C MP, MG, CBC, CRP, T4F, TSH3, ESR, URIC #### [address] #### AUGUST, ASO, RA #### [facility] , Complete Blood Count Auto Di ffon 07-04-2023 Basophils (Bld) [#/Vol] 0.0 10*3/uL Normal 0.0-0.2 [facility] Comment on above: Performed By: #### C MP, TSH3, CBC, T4F #### [place] [address] [place] #### THY AB #### [facility] , Basophils/100 WBC (Bld) 0.6 % Normal . [facility] Comment on above: Performed By: #### C MP, TSH3, CBC, T4F #### [place] [address] [place] #### THY AB #### [facility] , Eosinophils (Bld) [#/Vol] 0.1 10*3/uL Normal 0.0-0.45 [facility] Comment on above: Performed By: #### C MP, TSH3, CBC, T4F #### [place] [address] [place] #### THY AB #### [facility] , Eosinophils/100 WBC (Bld) 0.7 % Normal . [facility] Comment on above: Performed By: #### C MP, TSH3, CBC, T4F #### [place] [address] [place] #### THY AB #### [facility] , Erythrocyte distribution width (RBC) [Ratio] 14.1 % Normal 11.9-15.3 [facility] Comment on above: Performed By: #### C MP, TSH3, CBC, T4F #### [facility] [address] [place] [address] #### THY AB #### [facility] , Hematocrit (Bld) [Volume fraction] 38.8 % Normal 34.0-46.4 [facility] Comment on above: Performed By: #### C MP, TSH3, CBC, T4F #### [place] [address] [place] #### THY AB #### [facility] , Hemoglobin (Bld) [Mass/Vol] 13.4 g/dL Normal 11.8-15.4 [facility] Comment on above: Performed By: #### C MP, TSH3, CBC, T4F #### [address] #### THY AB #### [facility] , Lymphocytes (Bld) [#/Vol] 1.0 10*3/uL Normal 1.00-4.8 [facility] Comment on above: Performed By: #### C MP, TSH3, CBC, T4F #### [place] [address] [place] #### THY AB #### [facility] , Lymphocytes/100 WBC (Bld) 13.9 % Normal . [facility] Comment on above: Performed By: #### C MP, TSH3, CBC, T4F #### [facility] [address] [place] [address] [place] #### THY AB #### [facility] , MCH (RBC) [Entitic mass] 33.9 pg Normal 24.7-34.3 [facility] Comment on above: Performed By: #### C MP, TSH3, CBC, T4F #### [facility] [address] [place] [address] [place] #### THY AB #### [facility] , MCV (RBC) [Entitic vol] 98.3 fL Normal 80-100 [facility] Comment on above: Performed By: #### C MP, TSH3, CBC, T4F #### [facility] [address] [place] [address] [place] #### THY AB #### [facility] , Mean Corpuscular HGB Conc 34.4 g/dL Normal 32.0-35.0 [facility] Comment on above: Performed By: #### C MP, TSH3, CBC, T4F #### [address] #### THY AB #### [facility] , Monocytes (Bld) [#/Vol] 0.4 10*3/uL Normal 0.0-0.8 [facility] Comment on above: Performed By: #### C MP, TSH3, CBC, T4F #### [facility] [address] [place] [address] [place] #### THY AB #### [facility] , Monocytes/100 WBC (Bld) 5.4 % Normal . [facility] Comment on above: Performed By: #### C MP, TSH3, CBC, T4F #### [facility] [address] [place] [address] [place] #### THY AB #### [facility] , Neutrophils (Bld) [#/Vol] 5.8 10*3/uL Normal 1.8-7.7 [facility] Comment on above: Performed By: #### C MP, TSH3, CBC, T4F #### [place] [address] [place] #### THY AB #### [facility] , Neutrophils/100 WBC (Bld) 79.4 % Normal . [facility] Comment on above: Performed By: #### C MP, TSH3, CBC, T4F #### [facility] [address] [place] [address] [place] #### THY AB #### [facility] , NRBC% 0.0 /100{WBC} Normal 0-0.5 [facility] Comment on above: Performed By: #### C MP, TSH3, CBC, T4F #### [facility] [address] [place] [address] [place] #### THY AB #### [facility] , Platelet mean volume (Bld) [Entitic vol] 9.6 fL Normal 6.3-10.7 [facility] Comment on above: Performed By: #### C MP, TSH3, CBC, T4F #### [address] #### THY AB #### [facility] , Platelets (Bld) [#/Vol] 211 10*3/uL Normal 150-450 [facility] Comment on above: Performed By: #### C MP, TSH3, CBC, T4F #### [place] [address] [place] #### THY AB #### [facility] , RBC (Bld) [#/Vol] 3.95 10*6/uL Normal 3.60-5.00 [facility] Comment on above: Performed By: #### C MP, TSH3, CBC, T4F #### [place] [address] [place] #### THY AB #### [facility] , WBC (Bld) [#/Vol] 7.3 10*3/uL Normal 3.8-11.6 [facility] Comment on above: Performed By: #### C MP, TSH3, CBC, T4F #### [place] [address] [place] #### THY AB #### [facility] , Comprehensive Metabolic Pane nory 07-04-2023 Albumin [Mass/Vol] 4.2 g/dL Normal 3.5-5.7 [facility] Comment on above: Performed By: #### C MP, MG, CBC, CRP, T4F, TSH3, ESR, URIC #### [facility] [address] [place] [address] [place] #### AUGUST, ASO, RA #### [facility] , Albumin/Globulin [Mass ratio] 1.8 {ratio} Normal [facility] Comment on above: Performed By: #### C MP, MG, CBC, CRP, T4F, TSH3, ESR, URIC #### [facility] [address] [place] [address] [place] #### AUGUST, ASO, RA #### [facility] , ALP [Catalytic activity/Vol] 220 U/L High 34-104 [facility] Comment on above: Performed By: #### C MP, MG, CBC, CRP, T4F, TSH3, ESR, URIC #### [facility] [address] [place] [address] [place] #### AUGUST, ASO, RA #### [facility] , ALT [Catalytic activity/Vol] 181 U/L High 7-52 [facility] Comment on above: Performed By: #### C MP, MG, CBC, CRP, T4F, TSH3, ESR, URIC #### [facility] [address] [place] [address] [place] #### AUGUST, ASO, RA #### [facility] , Anion gap [Moles/Vol] 11.0 mmol/L Normal 6.0-15.0 [facility] Comment on above: Performed By: #### C MP, MG, CBC, CRP, T4F, TSH3, ESR, URIC #### [facility] [address] [place] [address] [place] #### AUGUST, ASO, RA #### [facility] , AST [Catalytic activity/Vol] 56 U/L High 13-39 [facility] Comment on above: Performed By: #### C MP, MG, CBC, CRP, T4F, TSH3, ESR, URIC #### [facility] [address] [place] [address] #### AUGUST, ASO, RA #### [facility] , Bilirubin [Mass/Vol] 1.2 mg/dL High 0.3-1.0 [facility] Comment on above: Performed By: #### C MP, MG, CBC, CRP, T4F, TSH3, ESR, URIC #### [facility] [address] [place] [address] [place] #### AUGUST, ASO, RA #### [facility] , Calcium [Mass/Vol] 10.0 mg/dL Normal 8.6-10.3 [facility] Comment on above: Performed By: #### C MP, MG, CBC, CRP, T4F, TSH3, ESR, URIC #### [facility] [address] [place] [address] #### AUGUST, ASO, RA #### [facility] , Chloride [Moles/Vol] 105 mmol/L Normal 98-107 [facility] Comment on above: Performed By: #### C MP, MG, CBC, CRP, T4F, TSH3, ESR, URIC #### [facility] [address] [place] [address] [place] #### AUGUST, ASO, RA #### [facility] , CO2 [Moles/Vol] 29.8 mmol/L Normal 21.0-31.0 [facility] Comment on above: Performed By: #### C MP, MG, CBC, CRP, T4F, TSH3, ESR, URIC #### [facility] [address] [place] [address] [place] #### AUGUST, ASO, RA #### [facility] , Creatinine [Mass/Vol] 0.68 mg/dL Normal 0.60-1.20 [facility] Comment on above: Performed By: #### C MP, MG, CBC, CRP, T4F, TSH3, ESR, URIC #### [place] [address] [place] #### AUGUST, ASO, RA #### [facility] , GFR/1.73 sq M.predicted MDRD (S/P/Bld) [Vol rate/Area] mL/min/{1.73_m2} [facility] Comment on above: Performed By: #### C MP, MG, CBC, CRP, T4F, TSH3, ESR, URIC #### [place] [address] [place] #### AUGUST, ASO, RA #### [facility] , Globulin (S) [Mass/Vol] 2.4 g/dL [facility] Comment on above: Performed By: #### C MP, MG, CBC, CRP, T4F, TSH3, ESR, URIC #### [place] [address] [place] #### AUGUST, ASO, RA #### [facility] , Glucose [Mass/Vol] 97 mg/dL Normal 70-100 [facility] Comment on above: Result Comment: [place] Glucose Reference Range is dependent on time and content of last meal. Glucose of more than 200 mg/dL in a nonstressed, ambulatory subject supports the diagnosis of Diabetes Mellitus. ADA recommended reference range Performed By: #### C MP, MG, CBC, CRP, T4F, TSH3, ESR, URIC #### [place] [address] [place] #### AUGUST, ASO, RA #### [facility] , Potassium [Moles/Vol] 3.8 mmol/L Normal 3.5-5.1 [facility] Comment on above: Performed By: #### C MP, MG, CBC, CRP, T4F, TSH3, ESR, URIC #### [facility] [address] [place] [address] #### AUGUST, ASO, RA #### [facility] , Protein [Mass/Vol] 6.6 g/dL Normal 6.4-8.9 [facility] Comment on above: Performed By: #### C MP, MG, CBC, CRP, T4F, TSH3, ESR, URIC #### [facility] [address] [place] [address] [place] #### AUGUST, ASO, RA #### [facility] , Sodium [Moles/Vol] 142 mmol/L Normal 136-145 [facility] Comment on above: Performed By: #### C MP, MG, CBC, CRP, T4F, TSH3, ESR, URIC #### [address] #### AUGUST, ASO, RA #### [facility] , Urea nitrogen [Mass/Vol] 19 mg/dL Normal 7-25 [facility] Comment on above: Performed By: #### C MP, MG, CBC, CRP, T4F, TSH3, ESR, URIC #### [facility] [address] [place] [address] #### AUGUST, ASO, RA #### [facility] , Erythrocyte Sedimentation Ra amy 07-04-2023 ESR (Bld) [Velocity] 19 mm/h Normal 0-29 [facility] Comment on above: Result Comment: PERF ORMED BY: [place] [address] PATHOLOGIST OCCUPATIONAL SAFETY SPECIALIST JODY SOLANO M.D. Performed By: #### C MP, TSH3, CBC, T4F #### [place] [address] [place] #### THY AB #### [facility] , Free T4 (Free Thyroxine)on 0 07-04-2023 Free T4 [Mass/Vol] 4.05 ng/dL High 0.61-1.12 [facility] Comment on above: Performed By: #### C MP, MG, CBC, CRP, T4F, TSH3, ESR, URIC #### [facility] [address] [place] [address] #### AUGUST, ASO, RA #### [facility] , Magnesiumon 07-04-2023 Magnesium [Mass/Vol] 2.0 mg/dL Normal 1.9-2.7 [facility] Comment on above: Performed By: #### C MP, MG, CBC, CRP, T4F, TSH3, ESR, URIC #### [address] #### AUGUST, ASO, RA #### [facility] , Rheumatoid Factoron 07-04-19 Rheumatoid Factor 15.3 High <14.0 [facility] Comment on above: Result Comment: Perf ormed at: - [facility] [place] [id number] [employer]: Antonino Belle PhD, Phone: [phone] Performed By: #### C MP, TSH3, CBC, T4F #### [address] #### THY AB #### [facility] , Thyroid Stimulating Hormoneo n 07-04-2023 TSH Qn 1.35 m[IU]/L Normal 0.45-5.33 [facility] Comment on above: Result Comment: PERF ORMED BY: [place] [address] PATHOLOGIST OCCUPATIONAL SAFETY SPECIALIST JODY SOLANO M.D. Performed By: #### C MP, TSH3, CBC, T4F #### [place] [address] [place] #### THY AB #### [facility] , Uric Acidon 07-04-2023 Urate [Mass/Vol] 4.0 mg/dL Normal 2.3-6.6 [facility] Comment on above: Performed By: #### C MP, MG, CBC, CRP, T4F, TSH3, ESR, URIC #### [facility] [address] #### AUGUST, ASO, RA #### [facility] , Echocardiogramon 02-26-2023 Echocardiography [facility] [address] [place] [address], [address], [place] [address] TRANSTHORACIC ECHOCARDIOGRAM REPORT Patient Name: LAVONNE Shruti Physician: [id number] Shy Wolf MD, [facility] Study Date: 02/26/2023 Referring SHY WOLF Physician: MRN/PID: [id number] PCP: Suhas Garrett MD Accession/Order#: [id number] Department [facility] Location: Date of : 1935 Fellow: Gender: F Nurse: Admit Date: Digital Project Coordinator: Sheridan Lemus [facility], T Height: 157.48 cm CC Report to: Weight: 67.13 kg Study Type: Echocardiogram BSA: 1.68 m2 Blood Pressure: 122 /76 mmHg Diagnosis/ICD: I35.0-Nonrheumatic aortic (valve) stenosis; R01.1-Cardiac murmur, unspecified Indication: HTN, Hyperlipidemia, Overweight, Hypothyroid, Polymyalgia Rheumatica Procedure/CPT: Echo Complete w Full [id number] Study Detail: The following Echo studies were [...] mmHg PIEDV: 2.50 m/s PADP: 28.0 mmHg [id number] Shy Wolf MD, FACC Electronically signed on 03/01/2023 at 2:16:46 PM Final Normal [facility] Office Visit (Cardiology)on 12-24-2022 Follow-up visit Diagnoses/Problems Assessed Aortic stenosis (424.1) (I35.0) Murmur, cardiac (785.2) (R01.1) Essential hypertension (401.9) (I10) Hyperlipidemia (272.4) (E78.5) Overweight with body mass index (BMI) of 27 to 27.9 in adult (278.02,V85.23) (E66.3,Z68.27) Never smoker Hypothyroidism (244.9) (E03.9) PMR (polymyalgia rheumatica) (725) (M35.3) Orders Aortic stenosis, Murmur, cardiac Echocardiogram; Status:Hold For - Scheduling,Retrospec tive Authorization; Requested for:[id number]; Essential hypertension, Hyperlipidemia Changed: From Aspirin EC 81 MG TBEC TAKE 1 TABLET To Aspirin 81 MG Oral Tablet Delayed Release TAKE 1 TABLET DAILY Overweight with body mass index (BMI) of 27 to 27.9 in adult Healthy Weight Tips; Status:Complete - Retrospective Authorization; Done: [id number] Some eating tips that can help you lose weight.; Status:Complete - Retrospective Authorization; Done: [id number] SocHx: Never smoker Tobacco Use Screening; Status:Complete; Done: [id number] Patient Instructions Please bring all medicines, vitamins, [...] is being tapered gradually Shy Wolf MD, [facility] Past Medical History Problems History of Carotid bruit (785.9) (R09.89) Current Meds Medication NameInstruction amLODIPine Besylate 10 MG Oral TabletTAKE 1 TABLET DAILY. Aspirin EC 81 MG TBECTAKE 1 TABLET -- Calcium 600 MG TABSTAKE 1 TABLET DAILY. Carvedilol 6.25 MG Oral TabletTAKE 1 TABLET TWICE DAILY WITH MEALS. Levothyroxine Sodium 100 MCG Oral TabletTAKE 1 TABLET DAILY. Losartan Potassium-HCTZ 100-12.5 MG Oral TabletTAKE 1 TABLET DAILY. Multi Vitamin Oral TabletTAKE 1 TABLET DAILY. [place]-3 Fish Oil 1000 MG Oral CapsuleTAKE 1 [...] negative for complaint. Vitals Vital Signs Recorded: [id number] 11:32AM Heart Rate68, R Radial [id number], RUE, Sitting Hjdhflbxp31, RUE, Sitting Height5 ft 2 in Fnsdah300 lb BMI Dfdnnfdpgq02.07 kg/m2 BSA Calculated1.68 Tobacco Useb) No PHQ-2 [...] distress a (more content not included)... Normal [employer] Tobacco Screening.on 023 Adult depression screening assessment No [employer] 250 DO Work Phone: Fall risk assessment a) No falls within the last year [employer] 250 DO Work Phone: Tobacco use status CPHS b) No [employer] 250 DO Work Phone: Complete Blood Count Auto Di ffon 02-22-2022 Basophils (Bld) [#/Vol] 0.622332395 10*3/uL Normal 0.0-0.2 10*3/uL [employer] Other Basophils/100 WBC (Bld) 0.700 % . % [employer] Other Eosinophils (Bld) [#/Vol] 0.720659569 10*3/uL Normal 0.0-0.45 10*3/uL [employer] Other Eosinophils/100 WBC (Bld) 0.700 % . % [employer] Other Erythrocyte distribution width (RBC) [Ratio] 13.500 % Normal 11.9-15.3 % [employer] Other Hematocrit (Bld) [Volume fraction] 38.400 % Normal 34.0-46.4 % [employer] Other Hemoglobin (Bld) [Mass/Vol] 12.544842 g/dL Normal 11.8-15.4 g/dL [employer] Other Lymphocytes (Bld) [#/Vol] 0.854803812 10*3/uL Low 1.00-4.8 10*3/uL [employer] Other Lymphocytes/100 WBC (Bld) 12.600 % . % [employer] Other MCH (RBC) [Entitic mass] 33.7000 pg Normal 24.7-34.3 pg [employer] Other MCV (RBC) [Entitic vol] 100.4000 fL High 80-100 fL [facility] Other Monocytes (Bld) [#/Vol] [id number] 10*3/uL Normal 0.0-0.8 10*3/uL [facility] Other Monocytes/100 WBC (Bld) 6.800 % . % [facility] Other Neutrophils (Bld) [#/Vol] [id number] 10*3/uL Normal 1.8-7.7 10*3/uL [facility] Other Neutrophils/100 WBC (Bld) 79.200 % . % [facility] Other Platelet mean volume (Bld) [Entitic vol] 9.4000 fL Normal 6.3-10.7 fL [facility] Other Platelets (Bld) [#/Vol] 223 10*3/uL Normal 150-450 10*3/uL [facility] Other RBC (Bld) [#/Vol] [id number] 10*6/uL Normal 3. 60-5.00 10*6/uL [facility] Other WBC (Bld) [#/Vol] [id number] 10*3/uL Normal 3.8 -11.6 10*3/uL [facility] Other Complete Blood Count Auto Diff 6.6 10*3/uL Normal 4.5-11.0 10*3/uL [facility] Other Complete Blood Count Auto Diff 33.6 g/dL Normal 32.0-35.0 g/dL [facility] Other Complete Blood Count Auto Diff 0.1 % Normal 0-0.5 % [facility] Other Erythrocyte Sedimentation Ra amy 02-22-2022 ESR (Bld) [Velocity] 28 mm/h Normal 0-29 [facility] Other VASC LAB Carotid Artery Dupl ex Ultrasoundon 02-21-2022 US.doppler Carotid arteries [employer] [place] Work Phone: COVID Quick Testingon 2021 Result Positive [facility] Other Falls Screening (Age 18+)on 12-26-2021 Fall risk assessment a) No falls within the last year [employer] [place] [address] DO Work Phone: Office Visit (Cardiology)on [...] Multi Vitamin Oral TabletTAKE 1 TABLET DAILY. [place] 3 500 CAPSTAKE 1 CAPSULE Daily predniSONE 5 MG Oral Lnmfis3GS 7.5MG BY MOUTH ONE DAILY ALTERNATING EVERY OTHER DAY Allergies Medication amoxicillin Hives;; Recorded By: Kayla Orr; 10/17/2021 10:50:34 AM Dilantin CAPS Rash; Recorded By: Kayla Orr; 10/17/2021 10:50:34 AM Fosamax eye pain; Recorded By: Kayla Orr; 10/17/2021 10:50:34 AM Depakote ER TB24 Recorded By: Kayla Orr; 10/17/2021 10:50:34 AM Vitals Vital Signs Recorded: [id number] 11:04AMRecorded: [id number] 11:00AM Heart Rate56, R Ivqohy04, R Radial Gwrvkndm658, LUE, Qsjeylm071, RUE Vlhrezvjb22, LUE, Wsohzqc08, RUE Height5 ft 2 in5 ft 2 in Gfrxau042 lb 143 lb BMI Xsqkgtaizi72.16 kg/m226.16 kg/m2 BSA Calculated1.661.66 Falls Screening (Age 18+)a) No falls within the last year Signatures Electronically signed by : Shy Wolf MD; Dec 26 2021 4:02PM EST (Author) Normal [employer] Tobacco Screening.on 022 Adult depression screening assessment No [employer] Work Phone: Fall risk assessment a) No falls within the last year [place] [employer] Work Phone: Tobacco use status [facility] b) No [place] [employer] Work Phone: Vital Signs Date Time Vital Sign Value 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 Facility 07-04-2023 11:15-0500 Body height 157.48 cm Suhas Garrett Other [facility] Other 07-04-2023 11:15-0500 Body mass index (BMI) [Ratio] 28.53 kg/m2 Suhas Garrett Other [facility] Other 07-04-2023 11:15-0500 Body weight 70.76 kg Suhas Garrett Other [facility] Other 07-04-2023 11:15-0500 Diastolic blood pressure 84 mm[Hg] Suhas Garrett Other [facility] Other 07-04-2023 11:15-0500 Respiratory rate 20 /min Suhas Garrett Other [facility] Other 07-04-2023 11:15-0500 SaO2% (BldA) [Mass fraction] 99 % Suhas Garrett Other [facility] Other 07-04-2023 11:15-0500 Systolic blood pressure 150 mm[Hg] Suhas Garrett Other [facility] Other 06-19-2023 11:09-0500 Body height 157.5 cm Shy Wolf MD Work Phone: [facility] 06-19-2023 11:09-0500 Body mass index (BMI) [Ratio] 27.98 kg/m2 Shy Wolf MD Work Phone: [facility] 06-19-2023 11:09-0500 Body weight 69.4 kg Shy Wolf MD Work Phone: [facility] 06-19-2023 11:09-0500 Diastolic blood pressure 76 mm[Hg] Shy Wolf MD Work Phone: [facility] 06-19-2023 11:09-0500 Heart rate 60 /min Shy Wolf MD Work Phone: [facility] 06-19-2023 11:09-0500 Systolic blood pressure 120 mm[Hg] Shy Wolf MD Work Phone: [facility] 05-30-2023 11:00-0500 Body height 157.48 cm Suhas Garrett Other [facility] Other 05-30-2023 11:00-0500 Body mass index (BMI) [Ratio] 27.8 kg/m2 Suhas Garrett Other [facility] Other 05-30-2023 11:00-0500 Body weight 68.95 kg Suhas Garrett Other [facility] Other 05-30-2023 11:00-0500 Diastolic blood pressure 80 mm[Hg] Suhas Garrett Other [facility] Other 05-30-2023 11:00-0500 Respiratory rate 18 /min Suhas Garrett Other [facility] Other 05-30-2023 11:00-0500 SaO2% (BldA) [Mass fraction] 96 % Suhas Garrett Other [facility] Other 05-30-2023 11:00-0500 Systolic blood pressure 122 mm[Hg] Suhas Garrett Other [facility] Other 02-28-2023 10:30-0400 Body height 157.48 cm Suhas Garrett Other [facility] Other 02-28-2023 10:30-0400 Body mass index (BMI) [Ratio] 27.98 kg/m2 Suhas Garrett Other [facility] Other 02-28-2023 10:30-0400 Body weight 69.4 kg Suhas Garrett Other [facility] Other 02-28-2023 10:30-0400 Diastolic blood pressure 76 mm[Hg] Suhas Garrett Other [facility] Other 02-28-2023 10:30-0400 Respiratory rate 16 /min Suhas Garrett Other [facility] Other 02-28-2023 10:30-0400 SaO2% (BldA) [Mass fraction] 91 % Suhas Garrett Other [facility] Other 02-28-2023 10:30-0400 Systolic blood pressure 134 mm[Hg] Suhas Garrett Other [facility] Other 12-24-2022 11:32-0400 Body height 157.48 cm Suhas Garrett Work Phone: [employer] [address] DO Work Phone: 12-24-2022 11:32-0400 Body mass index (BMI) [Ratio] 27.07 kg/m2 Suhas Garrett [facility] [place] [facility] DO Work Phone: 12-24-2022 11:32-0400 Body surface area Derived from formula 1.68 m2 Suhas Garrett Work Phone: [employer] 250 DO Work Phone: 12-24-2022 11:32-0400 Body weight 67.13 kg Suhas Garrett Work Phone: [facility] [place] 250 DO Work Phone: 12-24-2022 11:32-0400 Diastolic blood pressure 76 mm[Hg] Suhas Mayoadan Work Phone: [facility] [place] [address] DO Work Phone: 12-24-2022 11:32-0400 Heart rate 68 /min Suhas Mayoadan Work Phone: [facility] [place] 250 DO Work Phone: 12-24-2022 11:32-0400 Systolic blood pressure 118 mm[Hg] Suhas Dalton Garrett Work Phone: [facility] [place] [address] DO Work Phone: 12-06-2022 10:30-0400 Body height 157.48 cm Suhas Garrett Other [facility] Other 12-06-2022 10:30-0400 Body mass index (BMI) [Ratio] 27.98 kg/m2 Suhas Garrett Other [facility] Other 12-06-2022 10:30-0400 Body weight 69.4 kg Suhas Garrett Other [facility] Other 12-06-2022 10:30-0400 Diastolic blood pressure 70 mm[Hg] Suhas Garrett Other [facility] Other 12-06-2022 10:30-0400 Respiratory rate 16 /min Suhas Garrett Other [facility] Other 12-06-2022 10:30-0400 SaO2% (BldA) [Mass fraction] 98 % Suhas Garrett Other [facility] Other 12-06-2022 10:30-0400 Systolic blood pressure 146 mm[Hg] Suhasraquel Mayoadan Other [facility] Other 09-20-2022 11:45-0400 Body height 157.48 cm Suhas Mayoadan Other [facility] Other 09-20-2022 11:45-0400 Body mass index (BMI) [Ratio] 26.34 kg/m2 Suhas Garrett Other [facility] Other 09-20-2022 11:45-0400 Body weight 65.32 kg Suhas Garrett Other [facility] Other 09-20-2022 11:45-0400 Diastolic blood pressure 70 mm[Hg] Suhas Garrett Other [facility] Other 09-20-2022 11:45-0400 Respiratory rate 16 /min Suhas Mayoadan Other [facility] Other 09-20-2022 11:45-0400 SaO2% (BldA) [Mass fraction] 98 % Suhasraquel Garrett Other [facility] Other 09-20-2022 11:45-0400 Systolic blood pressure 130 mm[Hg] Suhas Garrett Other [facility] Other 07-22-2022 11:30-0500 Body height 157.48 cm Suhas Garrett Other [facility] Other 07-22-2022 11:30-0500 Body mass index (BMI) [Ratio] 26.85 kg/m2 Suhas Garrett Other [facility] Other 07-22-2022 11:30-0500 Body weight 66.59 kg Suhasraquel Mayoadan Other [facility] Other 07-22-2022 11:30-0500 Diastolic blood pressure 70 mm[Hg] Suhas Ugo Other [facility] Other 07-22-2022 11:30-0500 Respiratory rate 16 /min Suhas Garrett Other [facility] Other 07-22-2022 11:30-0500 SaO2% (BldA) [Mass fraction] 98 % Suhas Garrett Other [facility] Other 07-22-2022 11:30-0500 Systolic blood pressure 122 mm[Hg] Suhas Garrett Other [facility] Other 04-17-2022 11:45-0500 Body height 157.48 cm Suhas Garrett Other [facility] Other 04-17-2022 11:45-0500 Body mass index (BMI) [Ratio] 26.88 kg/m2 Suhas Garrett Other [facility] Other 04-17-2022 11:45-0500 Body weight 66.68 kg Suhas Ugo Other [facility] Other 04-17-2022 11:45-0500 Diastolic blood pressure 72 mm[Hg] Suhas Garrett Other [facility] Other 04-17-2022 11:45-0500 Respiratory rate 16 /min Suhas Garrett Other [facility] Other 04-17-2022 11:45-0500 SaO2% (BldA) [Mass fraction] 99 % Suhas Garrett Other [facility] Other 04-17-2022 11:45-0500 Systolic blood pressure 138 mm[Hg] Suhas Garrett Other [facility] Other 02-22-2022 10:15-0400 Body height 157.48 cm Suhas Garrett Other [facility] Other 02-22-2022 10:15-0400 Body mass index (BMI) [Ratio] 27.07 kg/m2 Suhas Garrett Other [facility] Other 02-22-2022 10:15-0400 Body weight 67.13 kg Suhas Garrett Other [facility] Other 02-22-2022 10:15-0400 Diastolic blood pressure 70 mm[Hg] Suhas Garrett Other [facility] Other 02-22-2022 10:15-0400 Respiratory rate 16 /min Suhas Garrett Other [facility] Other 02-22-2022 10:15-0400 SaO2% (BldA) [Mass fraction] 97 % Suhas Garrett Other [facility] Other 02-22-2022 10:15-0400 Systolic blood pressure 122 mm[Hg] Suhas Garrett Other [facility] Other 02-21-2022 10:45-0400 70 1 Suhas Garrett Work Phone: [place] [id number] [place] Work Phone: Comment on above: [id number] 02-14-2022 15:45-0400 Body height 157.48 cm Suhas Garrett Other [facility] Other 02-14-2022 15:45-0400 Body mass index (BMI) [Ratio] 26.7 kg/m2 Suhas Garrett Other [facility] Other 02-14-2022 15:45-0400 Body weight 66.23 kg Suhas Garrett Other [facility] Other 02-14-2022 15:45-0400 Diastolic blood pressure 72 mm[Hg] Suhas Garrett Other [facility] Other 02-14-2022 15:45-0400 Respiratory rate 16 /min Suhas Garrett Other [facility] Other 02-14-2022 15:45-0400 SaO2% (BldA) [Mass fraction] 96 % Suhas Garrett Other [facility] Other 02-14-2022 15:45-0400 Systolic blood pressure 132 mm[Hg] Suhas Garrett Other [facility] Other 12-26-2021 11:04-0400 Body height 157.48 cm Suhas Garrett Work Phone: [facility] [facility] DO Work Phone: 12-26-2021 11:04-0400 Body mass index (BMI) [Ratio] 26.16 kg/m2 Suhas Garrett Work Phone: [facility] 250 DO Work Phone: 12-26-2021 11:04-0400 Body surface area Derived from formula 1.66 m2 Suhas Grarett Work Phone: [facility] 250 DO Work Phone: 12-26-2021 11:04-0400 Body weight 64.86 kg Suhas Mayos Work Phone: [facility] 250 DO Work Phone: 12-26-2021 11:04-0400 Diastolic blood pressure 68 mm[Hg] Suhas Mayos Work Phone: [facility] 250 DO Work Phone: 12-26-2021 11:04-0400 Heart rate 56 /min Suhas Garrett Work Phone: [facility] 250 DO Work Phone: 12-26-2021 11:04-0400 Systolic blood pressure 126 mm[Hg] Suhas Mayos Work Phone: [facility] 250 DO Work Phone: 12-26-2021 11:00-0400 Diastolic blood pressure 70 mm[Hg] Suhas Mayos Work Phone: [facility] 250 DO Work Phone: 12-26-2021 11:00-0400 Systolic blood pressure 130 mm[Hg] Suhas Mayos Work Phone: [facility] 250 DO Work Phone: 12-13-2021 11:39-0400 Diastolic blood pressure 80 mm[Hg] Suhas Mayos Work Phone: [facility] Work Phone: 12-13-2021 11:39-0400 Systolic blood pressure 170 mm[Hg] Suhas Mayos Work Phone: [facility] Work Phone: 12-13-2021 11:22-0400 Diastolic blood pressure 80 mm[Hg] Suhas Hoffman Ugo Work Phone: [facility] Work Phone: 12-13-2021 11:22-0400 Systolic blood pressure 158 mm[Hg] Suhas Hoffman Ugo Work Phone: [facility] Work Phone: 12-13-2021 11:17-0400 Body height 157.48 cm Suhas Hoffman Ugo Work Phone: [facility] Work Phone: 12-13-2021 11:17-0400 Body mass index (BMI) [Ratio] 26.52 kg/m2 Suhas Dalton Garrett Work Phone: [facility] Work Phone: 12-13-2021 11:17-0400 Body surface area Derived from formula 1.67 m2 Suhas Dalton Mayoadan Work Phone: [facility] Work Phone: 12-13-2021 11:17-0400 Body weight 65.77 kg Suhas Dalton Garrett Work Phone: [facility] Work Phone: 12-13-2021 11:17-0400 Diastolic blood pressure 80 mm[Hg] Suhas Mayoadan Work Phone: [facility] Work Phone: 12-13-2021 11:17-0400 Heart rate 60 /min Suhas Mayoadan Work Phone: [facility] Work Phone: 12-13-2021 11:17-0400 Systolic blood pressure 160 mm[Hg] Suhas Garrett Work Phone: [facility] Work Phone: 10-01-2021 13:30-0400 Body height 157.48 cm Suhas Garrett Other [employer] Other 10-01-2021 13:30-0400 Body mass index (BMI) [Ratio] 26.34 kg/m2 Suhas Garrett Other [facility] Other 10-01-2021 13:30-0400 Body weight 65.32 kg Suhas Garrett Other [facility] Other 10-01-2021 13:30-0400 Diastolic blood pressure 72 mm[Hg] Suhas Garrett Other [facility] Other 10-01-2021 13:30-0400 Respiratory rate 18 /min Suhas Garrett Other [facility] Other 10-01-2021 13:30-0400 SaO2% (BldA) [Mass fraction] 99 % Suhas Garrett Other [facility] Other 10-01-2021 13:30-0400 Systolic blood pressure 130 mm[Hg] Suhas Garrett Other [facility] Other 08-02-2021 13:30-0500 Body height 157.48 cm Suhas Garrett Other [facility] Other 08-02-2021 13:30-0500 Body mass index (BMI) [Ratio] 26.52 kg/m2 Suhas Garrett Other [facility] Other 08-02-2021 13:30-0500 Body weight 65.77 kg Suhas Garrett Other [facility] Other 08-02-2021 13:30-0500 Diastolic blood pressure 70 mm[Hg] Suhas Garrett Other [facility] Other 08-02-2021 13:30-0500 Respiratory rate 16 /min Suhasraquel Mayoadan Other [facility] Other 08-02-2021 13:30-0500 SaO2% (BldA) [Mass fraction] 99 % Suhas Garrett Other [facility] Other 08-02-2021 13:30-0500 Systolic blood pressure 118 mm[Hg] Suhas Garrett Other [facility] Other 04-26-2021 13:30-0500 Body height 157.48 cm Suhas Garrett Other [facility] Other 04-26-2021 13:30-0500 Body mass index (BMI) [Ratio] 25.97 kg/m2 Suhas Garrett Other [facility] Other 04-26-2021 13:30-0500 Body weight 64.41 kg Suhas Gaeladan Other [facility] Other 04-26-2021 13:30-0500 Diastolic blood pressure 74 mm[Hg] Suhas Garrett Other [facility] Other 04-26-2021 13:30-0500 Respiratory rate 17 /min Suhas Garrett Other [facility] Other 04-26-2021 13:30-0500 SaO2% (BldA) [Mass fraction] 98 % Suhas Garrett Other [facility] Other 04-26-2021 13:30-0500 Systolic blood pressure 120 mm[Hg] Suhas Garrett Other [facility] Other Encounters Encounter Date Encounter Type Care Provider Facility Start: 09-29-2023 End: 09-30-2023 ambulatory Gloria Weston MD Facility:[facility] Start: 09-08-2023 End: 09-09-2023 ambulatory Gloria Weston MD Facility:[facility] Start: 09-03-2023 End: 09-03-2023 ambulatory Suhas Garrett Facility:[facility] Start: 08-25-2023 End: 08-26-2023 ambulatory Gloria Weston MD Facility:[facility] Start: 07-18-2023 End: 07-18-2023 ambulatory Suhas Garrett Other [facility] Other Start: 07-18-2023 Telephone encounter Suhas Garrett [facility] [place] Start: 07-15-2023 End: 07-15-2023 ambulatory Suhas Garrett Other [facility] Other Start: 07-15-2023 Telephone encounter Suhas Ugo [facility] [place] Start: 07-10-2023 End: 07-10-2023 ambulatory Suhas Garrett Other [facility] Other Start: 07-10-2023 Telephone encounter Suhas Garrett [facility] [place] Start: 07-08-2023 End: 07-08-2023 ambulatory Suhas Garrett Facility:[facility] Start: 07-07-2023 End: 07-07-2023 ambulatory Suhas Garrett Other [facility] Other Start: 07-07-2023 Telephone encounter Suhas Garrett [facility] [place] Start: 07-04-2023 End: 07-04-2023 ambulatory Suhas Garrett [facility] Other Start: 07-04-2023 Office outpatient vi sit 15 minutes Suhas Garrett [facility] Start: 06-19-2023 Telephone encounter Suhas Garrett [facility] Start: 06-19-2023 End: 06-19-2023 ambulatory SHY WOLF [facility] Other Start: 06-19-2023 End: 06-19-2023 Office outpatient visit 25 minutes Shy Wolf MD Work Phone: [facility] Comment on above: Aortic valve stenosi s, etiology of cardiac valve disease unspecified; Essential hypertension; Hyperlipidemia, unspecified hyperlipidemia type; Never smoked any substance Start: 05-30-2023 End: 05-30-2023 ambulatory Suhas Garrett Other [facility] Other Start: 05-30-2023 Office outpatient vi sit 25 minutes Suhas Garrett [facility] Start: 05-28-2023 End: 05-28-2023 ambulatory Suhas Garrett Other [facility] Other Start: 05-28-2023 Telephone encounter Suhas Garrett [facility] Start: 04-23-2023 End: 04-23-2023 ambulatory Suhas Garrett Other [facility] Other Start: 04-23-2023 Telephone encounter Suhas Garrett [facility] Start: 04-18-2023 End: 04-18-2023 ambulatory Suhas Garrett Other [facility] Other Start: 04-18-2023 Telephone encounter Suhas Garrett [facility] Start: 03-02-2023 Chart Update Suhas Garrett Work Phone: [facility] 250 DO Work Phone: Start: 02-28-2023 End: 02-28-2023 ambulatory Suhas Garrett Other [facility] Other Start: 02-28-2023 Office outpatient vi sit 15 minutes Suhas Garrett [facility] [place] Start: 02-26-[address] Suhas Garrett Facility:[id number] Start: 01-27-2023 End: 01-27-2023 ambulatory Suhas Garrett Other [facility] Other Start: 01-27-2023 Telephone encounter Suhas Garrett [facility] [place] Start: 12-24-2022 Office outpatient vi sit 25 minutes Suhas Garrett Work Phone: [facility] 250 DO Work Phone: Start: 12-24-[address] Shy Parkahim Facility: Start: 12-06-2022 End: 12-06-2022 ambulatory Suhas Garrett Other [facility] Other Start: 12-06-2022 Office outpatient vi sit 15 minutes Suhas Garrett [facility] [place] Start: 09-20-2022 End: 09-20-2022 ambulatory Suhas Garrett Other [facility] Other Start: 09-20-2022 Office outpatient vi sit 15 minutes Suhas Garrett [facility] [place] Start: 08-14-2022 End: 08-14-2022 ambulatory Suhas Garrett Other [facility] Other Start: 08-14-2022 Telephone encounter Suhas Garrett [facility] [place] Start: 07-22-2022 End: 07-22-2022 ambulatory Suhas Garrett Other [facility] Other Start: 07-22-2022 Office outpatient vi sit 15 minutes Suhas Garrett [facility] [place] Start: 04-17-2022 End: 04-17-2022 ambulatory Suhas Garrett Other [facility] Other Start: 04-17-2022 Office outpatient vi sit 15 minutes Suhas Garrett [facility] [place] Start: 04-10-2022 End: 04-10-2022 ambulatory Suhas Garrett Other [facility] Other Start: 04-10-2022 Telephone encounter Suhas Garrett [facility] [place] Start: 04-03-2022 End: 04-03-2022 ambulatory Suhas Garrett Other [facility] Other Start: 04-03-2022 Telephone encounter Suhas Garrett [facility] [place] Start: 04-02-2022 End: 04-02-2022 ambulatory Suhas Garrett Other [facility] Other Start: 04-02-2022 Telephone encounter Suhas Garrett [facility] [place] Start: 02-26-2022 End: 02-26-2022 ambulatory Suhas Garrett Other [facility] Other Start: 02-26-2022 Telephone encounter Suhas Ugo [facility] [place] Start: 02-25-2022 End: 02-25-2022 ambulatory Suhas Garrett Other [facility] Other Start: 02-25-2022 Telephone encounter Suhas Garrett [facility] [place] Start: 02-22-2022 End: 02-22-2022 ambulatory Suhas Garrett Other [facility] Other Start: 02-22-2022 Office outpatient vi sit 25 minutes Suhas Garrett [facility] [place] Start: 02-21-2022 Patient encounter procedure Suhas Garrett Work Phone: [facility] [address] [place] Work Phone: Start: 02-20-2022 End: 02-21-2022 ambulatory MAYO CARBAJAL Facility:[facility] Start: 02-14-2022 End: 02-14-2022 ambulatory Suhas Garrett Other [facility] Other Start: 02-14-2022 Office outpatient vi sit 25 minutes Suhas Garrett [facility] Start: 01-11-2022 End: 01-11-2022 ambulatory Suhas Garrett Other [facility] Other Start: 01-11-2022 Nursing evaluation o f patient and report [facility]has [facility] Start: 01-11-2022 Telephone encounter Suhas Garrett [facility] Start: 12-26-2021 Office outpatient vi sit 10 minutes Suhas Garrett Work Phone: [facility] 250 DO Work Phone: Start: 12-26-[address] Suhas Garrett Facility: Start: 12-20-2021 End: 12-20-2021 ambulatory Suhas Garrett Other [facility] Other Start: 12-20-2021 Telephone encounter Suhas Garrett [facility] Start: 12-13-2021 Office outpatient vi sit 25 minutes Suhas Garrett Work Phone: [facility] Work Phone: Start: 11-02-2021 End: 11-02-2021 ambulatory Suhas Garrett Other [facility] Other Start: 11-02-2021 Telephone encounter Suhas Garrett [facility] Start: 10-01-2021 End: 10-01-2021 ambulatory Suhas Garrett Other [facility] Other Start: 10-01-2021 Office outpatient vi sit 15 minutes Suhas Garrett [facility] [place] Start: 09-10-2021 End: 09-10-2021 ambulatory Suhas Garrett Other [facility] Other Start: 09-10-2021 Telephone encounter Suhas Garrett [facility] [place] Start: 08-20-2021 End: 08-20-2021 ambulatory Shuas Garrett Other [facility] Other Start: 08-20-2021 Telephone encounter Suhas Garrett [facility] [place] Start: 08-02-2021 End: 08-02-2021 ambulatory Suhas Garrett Other [facility] Other Start: 08-02-2021 Office outpatient vi sit 15 minutes Suhas Garrett [facility] [place] Start: 07-25-2021 End: 07-25-2021 ambulatory Suhas Garrett Other [facility] Other Start: 07-25-2021 Telephone encounter Suhas Garrett [facility] [place] Start: 05-08-2021 End: 05-08-2021 ambulatory Suhas Garrett Other [facility] Other Start: 05-08-2021 Telephone encounter Suhas Garrett [facility] [place] Start: 04-26-2021 End: 04-26-2021 ambulatory Suhas Garrett Other [facility] Other Start: 04-26-2021 Office outpatient vi sit 25 minutes Suhas Garrett [facility] [place] Procedures Date Procedure Procedure Detail 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 Start: 02-26-2023 Echocardiography Suhas Garrett Work Phone: Start: 02-21-2022 Echocardiography Suhas Garrett Work Phone: Appendectomy Suhas Garrett Work Phone: Cholecystectomy Suhas Garrett Work Phone: Operation on ovary Suhas Gibbs justin Work Phone: Thyroidectomy Suhas Garrett Work Phone: Total colonoscopy Suhas Hoffman Viktor sam Work Phone: Plan of Treatment Date Care Activity Detail Author Start: 05-12-2028 DTaP/Tdap/Td Vaccine s (2 - Td or Tdap) DTaP/Tdap/Td Vaccines (2 - Td or Tdap) [facility] Start: 03-16-2024 End: 03-16-2024 Patient encounter procedure 03/16/2024 11:20 AM EDT Office Visit [facility] [address] [facility] [address] [place] [address] Shy Wolf MD [address] [facility] [address] [place] [address] [facility] Start: 02-11-2024 End: 02-11-2024 Patient encounter procedure 02/11/2024 12:30 PM EDT Appointment [place] [id number] [facility] [address] [place] [address] [facility] Start: 02-08-2024 End: 06-19-2025 [facility] Transthoracic Transthoracic Echo (TTE) Complete Echocardiography Routine Aortic valve stenosis, etiology of cardiac valve disease unspecified Expected: 02/08/2024 (Approximate), Expires: 06/19/2025 [facility] Service Area Work Phone: Comment on above: Expected: 02/08/2024 (Approximate), Expires: 06/19/2025 Start: 06-19-2023 FUV, Provider: Shy Wolf, Status: Pen, Time: 11:00 AM FUV, Provider: Shy Wolf, Status: Pen, Time: 11:00 AM [facility] 250 DO Work Phone: Start: 05-28-2023 COVID-19 Vaccine (5 - Moderna series) COVID-19 Vaccine (5 - Moderna series) [facility] Start: 02-26-2023 ECHO, Provider: SAMUEL HHVI ULTRASOUND 01,[id number], Status: Pen, Time: 10:45 AM ECHO, Provider: SAMUEL HHVI ULTRASOUND 01,[id number], Status: Pen, Time: 10:45 AM [facility] 250 DO Work Phone: Start: 12-24-2022 FUV, Provider: Shy Wolf, Status: Pen, Time: 11:20 AM FUV, Provider: Shy Wolf, Status: Pen, Time: 11:20 AM [facility] Work Phone: Start: 02-21-2022 CAROTID, Provider: SAMUEL HHVI ULTRASOUND 01,[id number], Status: Pen, Time: 12:30 PM CAROTID, Provider: SAMUEL HHVI ULTRASOUND 01,[id number], Status: Pen, Time: 12:30 PM [facility] Work Phone: Start: 02-21-2022 ECHO, Provider: SAMUEL HHVI ULTRASOUND 01,[id number], Status: Pen, Time: 10:45 AM ECHO, Provider: SAMUEL HHVI ULTRASOUND 01,[id number], Status: Pen, Time: 10:45 AM [facility] Work Phone: Start: 01-17-2022 CAROTID, Provider: SAMUEL HHVI ULTRASOUND 01,[id number], Status: Pen, Time: 2:30 PM CAROTID, Provider: SAMUEL HHVI ULTRASOUND 01,[id number], Status: Pen, Time: 2:30 PM [facility] Work Phone: Start: 01-17-2022 ECHO, Provider: SAMUEL HHVI ULTRASOUND 01,[id number], Status: Pen, Time: 1:30 PM ECHO, Provider: SAMUEL HHVI ULTRASOUND 01,[id number], Status: Pen, Time: 1:30 PM [facility] Work Phone: Start: 12-26-2021 NURSEVST, Provider: MAGDA DANIEL DIRECTOR FINANCIAL PLANNING 1,[id number], Status: Pen, Time: 11:00 AM NURSEVST, Provider: MAGDA DANIEL DIRECTOR FINANCIAL PLANNING 1,[id number], Status: Pen, Time: 11:00 AM [facility] Work Phone: Start: 1935 Lipid panel Lipid Panel [facility] Start: 1935 Medicare Annual Wellness Visit Medicare Annual Wellness Visit (AWV) [facility] Start: 1935 Thyroid stimulating hormone measurement TSH Level [facility] Immunizations Immunization Date Immunization Notes Care Provider Fa cili 04-17-2022 Moderna COVID-19 Bivalent 50 MCG/0.5ML Intramuscular Suspension Suhas Garrett Work Phone: [facility] 250 DO Work Phone: 03-21-2022 Fluad Quadrivalent 0 .5 ML Intramuscular Prefilled Syringe Suhas Garrett Work Phone: [facility] 250 DO Work Phone: 03-21-2022 influenza, seasonal, injectable Suhas Garrett Other [facility] [facility] impok Other 11-14-2021 Moderna COVID-19 Vaccine 100 MCG/0.5ML Intramuscular Suspension Suhas P Gaels Work Phone: [facility] Work Phone: 04-05-2021 Moderna COVID-19 Vaccine 100 MCG/0.5ML Intramuscular Suspension Suhas P Gaels Work Phone: [facility] Work Phone: 03-19-2021 influenza, seasonal, injectable Suhas Garrett Other [facility] [facility] Other 08-08-2020 Moderna COVID-19 Vaccine 100 MCG/0.5ML Intramuscular Suspension Suhas P Gaels Work Phone: [facility] Work Phone: 07-11-2020 Moderna COVID-19 Vaccine 100 MCG/0.5ML Intramuscular Suspension Suhas Garrett Work Phone: [facility] Work Phone: 04-28-2020 pneumococcal polysaccharide vaccine, 23 valent Suhas Garrett Other [facility] Other 03-06-2020 Seasonal trivalent influenza vaccine, adjuvanted, preservative free Suhas Garrett Work Phone: [facility] Work Phone: 03-06-2020 influenza, seasonal, injectable Suhas Garrett Other [facility] Other 02-08-2020 influenza virus vaccine, unspecified formulation Suhas Garrett Work Phone: [facility] Work Phone: 02-08-2020 influenza, seasonal, injectable Suhas Garrett Other [facility] Other 05-04-2019 zoster vaccine recombinant Suhas Garrett Other [facility] Other 03-09-2019 influenza, high dose seasonal, preservative-free Suhas Garrett Work Phone: [facility] Work Phone: 03-04-2019 influenza, seasonal, injectable Suhas Garrett Other [facility] Other 02-04-2019 zoster vaccine recombinant Suhas Garrett Other [facility] Other 05-12-2018 tetanus toxoid, redu bety diphtheria toxoid, and acellular pertussis vaccine, adsorbed Suhas Garrett Other [facility] Other 03-16-2018 Seasonal trivalent influenza vaccine, adjuvanted, preservative free Shy Wolf MD Work Phone: [facility] Work Phone: 03-09-2018 influenza virus vaccine, unspecified formulation Suhas Garrett Work Phone: [facility] Work Phone: 04-09-2017 influenza virus vaccine, unspecified formulation Suhas Garrett Work Phone: [facility] Work Phone: 03-28-2017 Seasonal trivalent influenza vaccine, adjuvanted, preservative free Suhas P Ugo Work Phone: [facility] Work Phone: 05-23-2016 pneumococcal conjuga te vaccine, 13 valent Suhas Ugo Other [facility] Other 04-01-2016 Seasonal trivalent influenza vaccine, adjuvanted, preservative free Suhas Garrett Work Phone: [facility] Work Phone: 03-09-2016 influenza virus vaccine, unspecified formulation Suhas Garrett Work Phone: [facility] Work Phone: 03-09-2016 pneumococcal conjuga te vaccine, 13 valent Suhas Garrett Work Phone: [facility] Work Phone: 04-07-2015 influenza, injectabl e, quadrivalent, contains preservative Suhas Garrett Work Phone: [facility] Work Phone: 03-09-2015 influenza virus vaccine, unspecified formulation Suhas Garrett Work Phone: [facility] Work Phone: 04-05-2014 influenza, seasonal, injectable, preservative free Suhas Garrett Work Phone: [facility] Work Phone: 03-09-2014 influenza virus vaccine, whole virus Suhas Garrett Work Phone: [facility] Work Phone: 03-23-2013 influenza, seasonal, injectable Suhas Garrett Work Phone: [facility] Work Phone: 03-09-2013 influenza virus vaccine, unspecified formulation Suhas Garrett Work Phone: [facility] Work Phone: 04-14-2012 influenza, injectabl e, quadrivalent, contains preservative Suhas Garrett Other [facility] Other 06-09-2011 influenza virus vaccine, unspecified formulation Suhas Garrett Work Phone: [facility] Work Phone: 06-09-2010 influenza virus vaccine, unspecified formulation Suhas Garrett Work Phone: [facility] Work Phone: 06-09-2009 influenza virus vaccine, unspecified formulation Suhas Garrett Work Phone: [facility] Work Phone: 05-30-2009 novel [id number], preservative-free, injectable Suhas Garrett Work Phone: [facility] Work Phone: 10-19-2007 varicella virus vaccine Belkys Garrett Work Phone: [facility] Work Phone: 06-09-2006 pneumococcal polysaccharide vaccine, 23 valent Suhas Garrett Work Phone: [facility] Work Phone: Payers Date Payer Category Payer Self-pay 2022 Private Health Insurance [id number] 2001 Medicare MEDICARE MEDICAR E RAILROAD [id number] 2001-Present [address] [place] [address] [id number] 2001 Unknown 1959 Medicare [id number] 1959 Private Health Insurance [id number] 1936 Unknown [id number] 1936 Unknown [id number] 1936 Unknown [id number] 1936 Unknown [id number] 1936 Unknown [id number] 1936 Unknown [id number] 1936 Unknown [id number] 1936 Unknown [id number] Unknown [id number] Unknown [id number] Unknown [id number] Social History Date Type Detail Facility Unknown if ever smoked [facility] Other Start: 06-19-2023 Sex Assigned At [facility] Other Start: 06-19-2023 Caffeine use Caffeine use [facility] Work Phone: Start: 06-19-2023 Tobacco smoking status NHIS Never smoked tobacco [facility] Work Phone: Start: 06-19-2023 Tobacco use and exposure Smokeless tobacco non-user [facility] Work Phone: Start: 1935 [facility] Start: 06-09-2023 End: 06-19-2023 Exposure to SARS-CoV-2 (event) Not sure [facility] Clinical Notes 02-15-2015 to 07-18-2023 Note Date & Type Note Facility 07-18-2023 Evaluation note Encounter Date Diagnosis Assessment Notes Jul, PMR (polymya lgia rheumati ca) (ICD-10 - M35.3) [facility] Other 02-06-2024 Evaluation note* Encounter Date Diagnosis Assessment Notes Treatment Notes Treatment Clinical Notes Jul, PMR (polymyalgia rheumatica) (ICD-10 - M35.3) [facility] Other 02-01-2024 Evaluation note* Encounter Date Diagnosis Assessment Notes Treatment Notes Treatment Clinical Notes Jul, Hypothyroidism (ICD-10 - E03.9) [facility] Other 01-29-2024 Evaluation note* Encounter Date Diagnosis Assessment Notes Treatment Notes Treatment Clinical Notes Jun, Hypothyroidism (ICD- 10 - E03.9) Jun, Hyperthyroidism (ICD-10 - E05.90) [facility] Other 01-26-2024 Evaluation note* Encounter Date Diagnosis [...] medications in combination with eachother. Also discussed extermination supervisor steriod use in regards to her condition. [...] requires sooner she is welcome to call. [facility] Other 01-11-2024 Evaluation note* Encounter Date Diagnosis Assessment Notes Treatment Notes Treatment Clinical Notes Jun, PMR (polymyalgia rheumatica) (ICD-10 - M35.3) [facility] Other 01-11-2024 History of Present illness Narrative* [...] The prednisone is being tapered gradually Shy Wofl MD, FACC Review of Systems All other [...] of Shy Wolf MD. [facility]: [phone]) 167-582501-11-2024 Instructions* Patient Instructions* Yevgeniy Cortez MA - [...] time of your visit. [facility] 1(285) 998-596012-22-2023 Evaluation note* Encounter Date Diagnosis Assessment Notes [...] recommend the patient get the RSV vaccine. [facility] Other 12-20-2023 Evaluation note* Encounter Date Diagnosis Assessment Notes Treatment Notes Treatment Clinical Notes May, Hypertension (ICD-10 - I10) May, Hypothyroidism (ICD-10 - E03.9) [facility] Other 11-10-2023 Evaluation note* Encounter Date Diagnosis Assessment Notes Treatment Notes Treatment Clinical Notes Apr, PMR (polymyalgia rheumatica) (ICD-10 - M35.3) [facility] Other 09-22-2023 Evaluation note* Encounter Date Diagnosis Assessment Notes Treatment Notes Treatment Clinical Notes Feb, PMR (polymyalgia rheumatica) (ICD-10 - M35.3) She was encouraged to take 2.5mg daily. Patient is agreeable. Feb, Hypertension (ICD-10 - I10) Blood pressure is satisfactory, she is to follow with cardiology as scheduled. [facility] Other 08-21-2023 Evaluation note* Encounter Date Diagnosis Assessment Notes Treatment Notes Treatment Clinical Notes Jan, Hypertension (ICD-10 - I10) [facility] Other 06-30-2023 Evaluation note* Encounter Date Diagnosis [...] very confident this is due to the [facility]. She will see Dr. Wolf in three weeks therefore was advised to make sure she discusses the swelling with him and see what he would like to do. Patient is agreeable. [facility] Other 04-14-2023 Evaluation note* Encounter Date Diagnosis [...] tablets daily. We will continue to monitor. [facility] Other 03-08-2023 Evaluation note* Encounter Date Diagnosis Assessment Notes Treatment Notes Treatment Clinical Notes Aug, PMR (polymyalgia rheumatica) (ICD-10 - M35.3) [facility] Other 02-13-2023 Evaluation note* Encounter Date Diagnosis [...] states she has an upcoming appointment with engineering technology instructor and she will discuss making medication changes at that time. [facility] Other 11-09-2022 Evaluation note* Encounter Date Diagnosis [...] can cut Apr, Hyperlipidemia (ICD-10 - E78.5) [facility] Other 11-02-2022 Evaluation note* Encounter Date Diagnosis Assessment Notes Treatment Notes Treatment Clinical Notes Apr, PMR (polymyalgia rheumatica) (ICD-10 - M35.3) [facility] Other 10-26-2022 Evaluation note* Encounter Date Diagnosis Assessment Notes Treatment Notes Treatment Clinical Notes Mar, Lumbar back pain (ICD-10 - M54.50) [facility] Other 09-20-2022 Evaluation note* Encounter Date Diagnosis Assessment Notes Treatment Notes Treatment Clinical Notes Feb, Elevated liver function tests (ICD-10 - R79.89) [facility] Other 09-16-2022 Evaluation note* Encounter Date Diagnosis Assessment Notes Treatment Notes Treatment Clinical Notes Feb, Acute pain of left shoulder (ICD-10 - M25.512) [facility] report reviewed from 02/20/22 . The [...] pain (ICD-10 - R10.13) The patient advised Boyden could be causing her GI upset , [...] month Boniva at her next office visit. [facility] Other 09-08-2022 Evaluation note* Encounter Date Diagnosis [...] (ICD-10 - M85.80) Noted on Lumbar x-ray. [facility] Other 08-05-2022 Evaluation note* Encounter Date Diagnosis Assessment Notes Treatment Notes Treatment Clinical Notes Jan, COVID-19 (ICD-10 - U07.1) [facility] Other 08-05-2022 Evaluation note* Encounter Date Diagnosis Assessment Notes Treatment Notes Treatment Clinical Notes Jan, Cough (ICD-10 - R05.9) In house covid test is positive. Treatment plan discussed in TE. [facility] Other 07-14-2022 Evaluation note* Encounter Date Diagnosis Assessment Notes Treatment Notes Treatment Clinical Notes Dec, PMR (polymyalgia rheumatica) (ICD-10 - M35.3) [facility] Other 05-27-2022 Evaluation note* Encounter Date Diagnosis Assessment Notes Treatment Notes Treatment Clinical Notes October, PMR (polymyalgia rheumatica) (ICD-10 - M35.3) [facility] Other 04-25-2022 Evaluation note* Encounter Date Diagnosis [...] The patient encourged to continue following with engineering technology instructor annually in December as scheduled. I did forward a copy of most current blood work results . [facility] Other 04-04-2022 Evaluation note* Encounter Date Diagnosis Assessment Notes Treatment Notes Treatment Clinical Notes Sep, PMR (polymyalgia rheumatica) (ICD-10 - M35.3) Sep, Hypertension (ICD-10 - I10) [facility] Other 02-24-2022 Evaluation note* Encounter Date Diagnosis [...] if needed. We will continue to montior. [facility] Other 02-16-2022 Evaluation note* Encounter Date Diagnosis Assessment Notes Treatment Notes Treatment Clinical Notes Jul, PMR (polymyalgia rheumatica) (ICD-10 - M35.3) [facility] Other 11-30-2021 Evaluation note* Encounter Date Diagnosis Assessment Notes Treatment Notes Treatment Clinical Notes Apr, PMR (polymyalgia rheumatica) (ICD-10 - M35.3) [facility] Other 11-18-2021 Evaluation note* Encounter Date Diagnosis [...] Hypothyroidism (ICD-10 - E03.9) Blood work ordered. [facility] Other 09-09-2015 History general Narrative - Reported* Type Description Date Medical History Anastasia Medical History 02-15-15-mammogram-negativ e Medical History [id number]-socydlzhoqt-vvoneh, elmo jiménez in 3 yrs Medical History 03/2017- colonoscopy- normal Medical History f/u with cardiology [facility] Medical History ECHO 09/2016 Surgical History Appendectomy Surgical History Gallbladder Removal Surgical History Ovarian Cyst Removal Surgical History Coccyx repair Surgical History Cataracts Bilateral Eyes Surgical History thyroidectomy Dr. Forbes 10/14/2019 Hospitalization History Childbirth x5 Hospitalization History See Above [facility] [facility] Other Evaluation note* Diagnosis Aortic valve stenosis, etiology of cardiac valve disease unspecified Essential hypertension Unspecified essential hypertension Hyperlipidemia, unspecified hyperlipidemia type Never smoked any substance documented in this encounter [facility] Work Phone: Chief Complaint * LAVONNE VILLATORO [...] tapered gradually * Shy Wolf MD, FACC Family History No Family History Records FoundUnknown [...] PMR (polymyalgia rhe umatica) (M35.3) Referral Organization [facility] [place] Referring Provider First Name Suhas Referring Provider Last Name Ugo Referring Provider Specialty Family Prac sukhjinder Referred Organization [facility] Referred Address [address] [place], [place],[address] Referred Provider Specialty Rheumatology Referral Priority Routine General Notes Zaida Tinsley 10:11:01 AM >received today, completed CC referral form and faxed to their referring physicians department. Patient will be contacted by the CC to schedule her appointment. Specialty Diagnoses / Procedures Referred By Alberto t Referred To Contact Cardiology Diagnoses Aortic valve stenosis, etiology of cardiac valve disease unspecified Procedures Transthoracic Echo (TTE) Complete [place] ECHO TTHRC R-T 2D W/WOM-MODE COMPL SPEC&COLR D Shy Wolf MD [address] [place] [address] [address], [address] [address] Referral ID Status Reason Start Date Expiration Date Visits Requested Visits Authorized Pending Review Perform Procedure 06/19/2023 06/18/2024 1 1 Specialty Diagnoses / Procedures Referred By Alberto jiménez Referred To Contact Cardiology Diagnoses Aortic valve stenosis, etiology of cardiac valve disease unspecified Procedures Follow Up In Cardiology Shy Wolf MD [address] [facility] [address], [address] [place] [address] Shy Wolf MD [address] [facility] [address], [address] [address] Referral ID Status Reason Start Date Expiration Date V isits Requested Visits Authorized [id number] Authorized 06/19/2023 06/18/2024 1 1 Additional Source Comments REASON FOR VISIT (unrecogniz ed section and content) Reason Comments Follow-up 6m INFORMATION SOURCE (unrecogn ized section and content) DATE CREATED AUTHOR 03/06/2022 [facility] DATE CREATED AUTHOR AUTHOR'S ORGANIZ ATION 12/25/2022 [facility] DATE CREATED AUTHOR AUTHOR'S ORGANIZ ATION 12/25/2022 [facility] DATE CREATED AUTHOR AUTHOR'S ORGANIZ ATION [facility]/2023 [facility] DATE CREATED AUTHOR AUTHOR'S ORGANIZ ATION 06/22/2023 [facility] DATE CREATED AUTHOR AUTHOR'S ORGANIZ ATION 09/04/2023 [facility] DATE CREATED AUTHOR AUTHOR'S ORGANIZ ATION 10/03/2023 [facility] Care Teams (unrecognized sec tion and content) Luncheonette Manager Relationship Specialty Start Date End Date Ugo Suhas LiangDO PCP - General 06/09/99 FOR RECORDS PERTAINING [...] BE BASED ON THE PRIMARY CLINICAL RECORDS. [facility] [employer] provides no warranty or guarantee of the accuracy or completeness of information in this document.
--- NOTE | 2023-10-09 10:53 | PM.CN ---
Consult Note: HPI Data of Consult Patient: known to practice within the last 3 years Consult date: 09/08/23 Requesting Physician: Norma Jimenez NP Primary Care Provider: Suhas Arizmendi, Consult Narrative Reason for consult: low back, bilateral lower extremity pain Narrative: 88yof who presents for assessment. Chronic low back pain aching 7/10 today, increasing to 10/10 worsened by all activities improved with heat and sitting. lumbar XR reviewed, which shows multilevel degeneration and facet arthropathy. continues in series of provider directed home exercises >6 weeks, without benefit. uses tylenol, advil, butrans patch, with some benefit. denies adverse med side effects. recently left L4-5 L5-S1 TFESI 25% improvement in pain and functional ability ongoing, decreased numbness tingling cc:: CC: Norma Jimenez NP Review of Systems ROS Status of ROS 10 or more systems reviewed and unremarkable except as noted in history and below Musculoskeletal Reports: back pain PFSH PFSH Medical History Polymyalgia rheumatica ?M35.3 - Polymyalgia rheumatica (ICD-10) Hyperthyroidism ?E05.90 - Thyrotoxicosis, unspecified without thyrotoxic crisis or storm (ICD-10) Heart murmur ?R01.1 - Cardiac murmur, unspecified (ICD-10) HTN (hypertension) ?I10 - Essential (primary) hypertension (ICD-10) Surgical History 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 - Postprocedural hypothyroidism (ICD-10) Hx of cholecystectomy ?Z90.49 - Acquired absence of other specified parts of digestive tract (ICD-10) History of ovarian cystectomy ?Z98.890 - Other specified postprocedural states (ICD-10) ?Z87.42 - Personal history of other diseases of the female genital tract (ICD-10) History of appendectomy ?Z90.49 - Acquired absence of other specified parts of digestive tract (ICD-10) Meds Home Medications and Allergies Home Medications ?Medication ?Instructions ?Recorded ?Confirmed ?Type acetaminophen 650 mg 650 mg PO Q8H PRN pain 08/25/23 09/29/23 History tablet,extended release (8 Hour Pain Reliever) amlodipine 10 mg tablet (Norvasc) 10 mg PO DAILY 08/25/23 09/29/23 History aspirin 81 mg capsule 81 mg PO DAILY 08/25/23 09/29/23 History carvedilol 6.25 mg tablet 6.25 mg PO Q12H 08/25/23 09/29/23 History levothyroxine 100 mcg tablet 100 mcg PO DAILY 08/25/23 09/29/23 History losartan 100 1 tab PO DAILY 08/25/23 09/29/23 History mg-hydrochlorothiazide 12.5 mg tablet multivitamin (Daily Multi-Vitamin 1 tab PO DAILY 08/25/23 09/29/23 History tablet) omega 3-oeo-haj-fish oil 1,000 mg 1 cap PO DAILY 08/25/23 09/29/23 History (120 mg-180 mg) capsule (Fish Oil) prednisone 5 mg tablet 5 mg PO DAILY 08/25/23 09/29/23 History calcium carbonate (Calcium 600) 600 mg PO DAILY 09/29/23 09/29/23 History Allergies Allergy/AdvReac Type Severity Reaction Status Date / Time amoxicillin Allergy Mild Rash Verified 09/29/23 10:20 divalproex sodium Allergy Unknown Verified 09/29/23 10:20 [From Depakote] hydrocodone Allergy Unknown Verified 09/29/23 10:20 phenytoin [From Dilantin] Allergy Unknown Verified 09/29/23 10:20 Exam Constitutional Documenting provider has reviewed patient's vital signs: yes Common normals: no apparent distress, oriented x3, healthy appearing, alert and well nourished General appearance: cooperative [facility] Common normals: normocephalic, hearing grossly normal bilaterally and moist oral mucous membranes Head and scalp: normocephalic Eye Common normals: PERRL Pupil: PERRL Neck & C-Spine Common normals: full ROM General: normal visual inspection Chest Common normals: inspection of chest normal Respiratory Common normals: normal respiratory effort, no retractions and no use of accessory muscles Back & Pelvis Lumbar spine/lower back: ROM limited, pain with ROM and straight leg raise negative bilaterally Other: bilateral facet loading tenderness over bilateral L4-5 L5-S1 facets no radiculopathy on exam strength 5/5 in BLE Neuro Common normals: oriented x3, CN's II-XII intact bilaterally, moves all extremities, no focal motor deficits, no sensory deficits noted and deep tendon reflexes 2+ bilaterally Sensorium/orientation: alert Gait (neuro): assistive device used cane Motor exam: strength 5/5 throughout and no movement abnormalities noted Psych Common normals: mental status grossly normal, thought process normal, cooperative, affect normal, speech normal and activity/motor behavior normal Speech: normal speech Thought process: normal thought process Results Additional Findings Additional findings: If on a controlled substance or opioids, I have checked an [place] report on this patient and there are no aberrancies noted in the prescribing history.??If on a controlled substance or opioid a drug screen was completed and reviewed within the last year, and if there has not been a drug screen completed we ordered one today to monitor higher risk, state monitored pain medication use. As part of providing excellent, safe, comprehensive care, the following was completed at our patient's visit: 1. A medication reconciliation and review to ensure accurate knowledge of current/active medications, including asking our patients to inform us about any [id number] medications or herbal remedies/nutritional supplements/alternative remedies. 2. A review to specifically ensure our patients have had annual screening for screening for depression, screening for tobacco use, and screening for unhealthy alcohol use. For concerning screenings had a discussion with the patient, provided patient education, and recommended follow-up with primary care provider when appropriate. If patient noted with a risk of falling, they received education on strength, gait, and balance training to prevent future risk of falling. Assessment and Plan Assessment and Plan (1) Lumbar stenosis with neurogenic claudication: (2) Lumbar spondylosis: Assessment and Plan: The patient has had over 3 months of moderate to severe low back pain with functional impairment and inadequate response to conservative care including NSAIDS (unless there are contraindication such as concurrent blood thinners), multiple oral or topical pain medications, and home exercise program/physical therapy.? Patient has completed >6 weeks of guided home exercise program and/or formal physical therapy program without relief of their symptoms.? I have reviewed the imaging of the lumbar spine and no red flags were identified.? We discussed the risks and benefits of the procedure with the patient, and we are NOT planning on using sedation as outlined in the guidelines from Medicare unless there is a documented reason that sedation would be strongly recommended.?? ?The procedure will be completed with fluoroscopic guidance.? Plan bilateral L4-5 L5-S1 medial branch block x2 working towards RFA continue current medications tolerating well without side effects f/u 1 week after each injection
== END 2023-10-09 10:15 | disposition home or self-care (01) ==
LOC: PM 10:15
PROVIDERS: PCP Family Medicine; Visit Provider Nurse Practitioner
DX: M48.062 Spinal stenosis, lumbar region with neurogenic claudication (principal); M47.816 Spondylosis without myelopathy or radiculopathy, lumbar region
CPT/HCPCS: G0463

== ENCOUNTER 2023-10-20 07:40 | Day surgery (SDC) | payer MEDICARE, OTHER, SELFPAY ==
[2023-10-20 08:11] VITALS: BP 152/77; PULSE 54; TEMP 36.6; O2SAT 100
[2023-10-20 08:54] VITALS: BP 168/69; PULSE 68; O2SAT 97
[2023-10-20] MEDS: LIDOCAINE HCL 2% PF 100 MG/5 ML VIAL 10 ML INJ (08:54)
[2023-10-20] MEDS: BUPIVACAINE HCL 0.25% PF 25 MG/10 ML VIAL INJ (08:55)
[2023-10-20 08:56] VITALS: BP 168/69; PULSE 62; O2SAT 98
--- NOTE | 2023-10-20 08:57 | W.PM.PROCNOT ---
Date of procedure: 10/20/23 Pre-op diagnosis: Lumbar spondylosis Post-op diagnosis: same as pre-op Procedure: Procedure: Bilateral L4-5, L5-S1 medial branch block Medications: Bupivacaine 0.25% 6cc The patient was seen and examined in the preoperative holding area.? An informed consent was obtained and placed on the chart.? The patient was brought to the medical procedure unit and placed in the prone position.? A timeout was completed verifying correct patient, procedure site, positioning, plan, and special equipment.? Using aseptic technique, the needle was placed at left L4. Under direct fluoroscopic visualization a Quincke-tipped spinal needle was advanced to the junction of the superior articulating process with the transverse process at the designated medial branch segment.? Preceded by negative aspiration, the above-mentioned injectate was placed in 1 mL aliquots.? The procedure was repeated at left L5, S1.? The needle was removed and insertion site was covered. The same procedure, at the same levels, was completed on the right side. The patient was taken to the postprocedural recovery area and monitored for an appropriate length of time before found suitable for discharge in the company of a responsible adult. Anesthesia: Local Surgeon: Gloria Weston Pathology: none sent Condition: stable Disposition: no change
== END 2023-10-20 09:03 | disposition home or self-care (01) ==
LOC: SURGOUT 07:41
PROVIDERS: PCP Family Medicine; Visit Provider Anesthesiology
DX: M47.816 Spondylosis without myelopathy or radiculopathy, lumbar region (principal)
CPT/HCPCS: 64493; 64494

== ENCOUNTER 2023-10-29 10:32 | Outpatient (OUT) | payer MEDICARE, OTHER, SELFPAY ==
--- NOTE | 2023-10-29 10:50 | P.CN_ITS ---
Consult Note: HPI Data of Consult Patient: known to practice within the last 3 years Consult date: 09/08/23 Requesting Physician: Norma Jimenez NP Primary Care Provider: Suhas Arizmendi DO Consult Narrative Reason for consult: low back, bilateral lower extremity pain Narrative: 88yof who presents for assessment. Chronic low back pain aching 7/10 today, increasing to 10/10 worsened by all activities improved with heat and sitting. lumbar XR reviewed, which shows multilevel degeneration and facet arthropathy. continues in series of provider directed home exercises >6 weeks, without benefit. uses tylenol, advil, butrans patch, with some benefit. denies adverse med side effects. Recently underwent bilateral L4-5 L5-S1 medial branch block #1 with significant improvement, >80% improvement in pain and functional ability immediately after and days after. cc:: CC: Norma Jimenez NP Review of Systems ROS Status of ROS 10 or more systems reviewed and unremark able except as noted in history and below Musculoskeletal Reports: back pain PFSH PFSH Medical History Polymyalgia rheumatica ?M35.3 - Polymyalgia rheumatica (ICD-10) Hyperthyroidism ?E05.90 - Thyrotoxicosis, unspecified without thyrotoxic crisis or storm (ICD-10) Heart murmur ?R01.1 - Cardiac murmur, unspecified (ICD-10) HTN (hypertension) ?I10 - Essential (primary) hypertension (ICD-10) Surgical History 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 - Postprocedural hypothyroidism (ICD-10) Hx of cholecystectomy ?Z90.49 - Acquired absence of other specified parts of digestive tract (ICD- 10) History of ovarian cystectomy ?Z98.890 - Other specified postprocedural states (ICD-10) ?Z87.42 - Personal history of other diseases of the female genital tract (ICD-10) History of appendectomy ?Z90.49 - Acquired absence of other specified parts of digestive tract (ICD- 10) Meds Home Medications and Allergies Home Medications ?Medication ?Instructions ?Recorded ?Confirmed ?Type acetaminophen 650 mg 650 mg PO Q8H PRN pain 08/25/23 10/20/23 History tablet,extended release (8 Hour Pain Reliever) amlodipine 10 mg tablet (Norvasc) 10 mg PO DAILY 08/25/23 10/20/23 History aspirin 81 mg capsule 81 mg PO DAILY 08/25/23 10/20/23 History carvedilol 6.25 mg tablet 6.25 mg PO Q12H 08/25/23 10/20/23 History levothyroxine 100 mcg tablet 100 mcg PO DAILY 08/25/23 10/20/23 History losartan 100 1 tab PO DAILY 08/25/23 10/20/23 History mg-hydrochlorothiazide 12.5 mg tablet multivitamin (Daily Multi-Vitamin 1 tab PO DAILY 08/25/23 10/20/23 History tablet) omega 4-hjc-vft-fish oil 1,000 mg 1 cap PO DAILY 08/25/23 10/20/23 History (120 mg-180 mg) capsule (Fish Oil) prednisone 5 mg tablet 5 mg PO DAILY 08/25/23 10/20/23 History calcium carbonate (Calcium 600) 600 mg PO DAILY 09/29/23 10/20/23 History Allergies Allergy/AdvReac Type Severity Reaction Status Date / Time amoxicillin Allergy Mild Rash Verified 10/20/23 08:08 divalproex sodium Allergy Unknown Verified 10/20/23 08:08 [From Depakote] hydrocodone Allergy Unknown Verified 10/20/23 08:08 phenytoin [From Dilantin] Allergy Unknown Verified 10/20/23 08:08 alendronate sodium AdvReac eye pain Verified 10/20/23 08:08 [From Fosamax] Exam Constitutional Documenting provider has reviewed patient's vital signs: yes Common normals: no apparent distress, oriented x3, healthy appearing, alert and well nourished General appearance: cooperative [facility] Common normals: normocephalic, hearing grossly normal bilaterally and moist oral mucous membranes Head and scalp: normocephalic Eye Common normals: PERRL Pupil: PERRL Neck & C-Spine Common normals: full ROM General: normal visual inspection Chest Common normals: inspection of chest normal Respiratory Common normals: normal respiratory effort, no retractions and no use of accessory muscles Back & Pelvis Lumbar spine/lower back: ROM limited, pain with ROM and straight leg raise negative bilaterally Other: bilateral facet loading tenderness over bilateral L4-5 L5-S1 facets no radiculopathy on exam strength 5/5 in BLE Neuro Common normals: oriented x3, CN's II-XII intact bilaterally, moves all extremities, no focal motor deficits, no sensory deficits noted and deep tendon reflexes 2+ bilaterally Sensorium/orientation: alert Gait (neuro): assistive device used cane Motor exam: strength 5/5 throughout and no movement abnormalities noted Psych Common normals: mental status grossly normal, thought process normal, cooperative, affect normal, speech normal and activity/motor behavior normal Speech: normal speech Thought process: normal thought process Results Additional Findings Additional findings: If on a controlled substance or opioids, I have checked an [place] report on this patient and there are no aberrancies noted in the prescribing history.??If on a controlled substance or opioid a drug screen was completed and reviewed within the last year, and if there has not been a drug screen completed we ordered one today to monitor higher risk, state monitored pain medication use. As part of providing excellent, safe, comprehensive care, the following was completed at our patient's visit: 1. A medication reconciliation and review to ensure accurate knowledge of current/active medications, including asking our patients to inform us about any aycp-abz-rheeuev medications or herbal remedies/nutritional supplements/alternative remedies. 2. A review to specifically ensure our patients have had annual screening for screening for depression, screening for tobacco use, and screening for unhealthy alcohol use. For concerning screenings had a discussion with the patient, provided patient education, and recommended follow-up with primary care provider when appropriate. If patient noted with a risk of falling, they received education on strength, gait, and balance training to prevent future risk of falling. Assessment and Plan Assessment and Plan (1) Lumbar stenosis with neurogenic claudication: (2) Lumbar spondylosis: Assessment and Plan: The patient has had over 3 months of moderate to severe low back pain with functional impairment and inadequate response to conservative care including NSAIDS (unless there are contraindication such as concurrent blood thinners), multiple oral or topical pain medications, and home exercise program/physical therapy.? Patient has completed >6 weeks of guided home exercise program and/or formal physical therapy program without relief of their symptoms.? I have reviewed the imaging of the lumbar spine and no red flags were identified.? We discussed the risks and benefits of the procedure with the patient, and we are NOT planning on using sedation as outlined in the guidelines from Medicare unless there is a documented reason that sedation would be strongly recommended.?? ?The procedure will be completed with fluoroscopic guidance.? Plan bilateral L4-5 L5-S1 medial branch block x2 working towards RFA continue current medications tolerating well without side effects f/u 1 week after each injection
== END 2023-10-29 10:33 | disposition home or self-care (01) ==
LOC: PM 10:33
PROVIDERS: PCP Family Medicine; Visit Provider Nurse Practitioner
DX: M48.062 Spinal stenosis, lumbar region with neurogenic claudication (principal); M47.816 Spondylosis without myelopathy or radiculopathy, lumbar region
CPT/HCPCS: G0463

== ENCOUNTER 2023-11-17 07:56 | Day surgery (SDC) | payer MEDICARE, OTHER, SELFPAY ==
--- OUTSIDE RECORDS SUMMARY | 2023-11-17 08:16 | XMS_ITS | CCD ---
Author Organization [facility] CliniSymd Care Team Providers Care Security Guards Dispatcher Name Role Phone Suhas Garrett Unavailable Suhas Garrett Unavailable Unavailable Unavailable MAYO CARBAJAL Consulting Unavailable UGO, DR BAIRD Primary Care Unavailable WALT VELIZ Attending Unavailable WALT VELIZ Admitting Unavailable Ugo, Dr. Suhas Liang Primary Care Unavaila ria Wolf, Dr. Shy Agosto Referring Radha vailable Wolf, Dr. Shy Agosto Attending Radha vailable Wolf, Dr. Shy Agosto Attending Radha vailable Ugo, Dr. Suhas Liang Primary Care Unavaila ria Wolf, Dr. Shy Agosto Referring Radha vailable Ugo, Dr. Suhas Liang Primary Care Unavaila SHY Clancy Attending Unavail able Suhas Garrett DO Primary [...] Admitting Unavailable Suhas Garrett Primary Care Unavailable Giedraitis , Andrius Vytautas Attending Unavailable Giedraitis , Andrius Vytautas Attending Unavailable Gieditis , Andrius Vytautas Attending Unavailable Gieditis , Andrius Vytautas Attending Unavailable Allergies Allergy Classification Reported Allergen(s) Allergy Type Date of Onset Reaction(s) Facility (20 sources) Alendronate; Translations: [Fosamax] Drug Allergy 3 Unknown, Other Hospitals 3 Repository (20 sources) Amoxicillin; Translations: [amoxicillin] Drug Allergy 9 hives [facility] [employer] Other (20 sources) Phenytoin; Translations: [Dilantin CAPS] Drug Allergy 3 Rash [facility] [employer] Other (20 sources) Valproate; Translations: [Depakote ER TB24] Drug Allergy Unknown [facility] [employer] Other (1 source) Alendronate Drug Allergy [facility] Repository (1 source) Amoxicillin Drug Allergy [facility] Repository (1 source) Phenytoin Drug Allergy [facility] Repository (1 source) Valproate Drug Allergy [facility] Repository (20 sources) Acetaminophen / HYDROcodone Drug Allergy elevated liver enzymes [facility] [employer] Other (1 source) Alendronate Drug Allergy 3 [facility] (2 sources) HYDROcodone; Translations: [HYDROCODONE] Drug Allergy [facility] Work Phone: (2 sources) Valproate; Translations: [VALPROIC ACID] Drug Allergy 3 [facility] Work Phone: (1 source) Acetaminophen Drug Allergy 4 [facility] Repository (1 source) Alendronate Drug Allergy 4 [facility] Repository (1 source) Amoxicillin Drug Allergy 4 [facility] Repository (1 source) HYDROcodone Drug Allergy 4 [facility] Repository (1 source) Phenytoin Drug Allergy 4 [facility] Repository (1 source) Valproate Drug Allergy 4 [facility] Repository Medications Current Medications Medication Drug Class(es) [...] tablet by mouth once daily. 0 Active [place] 3 1000 MG (20 sources) take 1 capsule by mouth once daily [place] 3 1000 MG 1 capsule with a [...] take 1 capsule by mouth once daily [place]-3 Fish Oil 1000 MG Oral Capsule TAKE 1 CAPSULES BY MOUTH DAILY Quantity: 360 Refills: 0 Ordered: 18-Marcelo-2023 DO Active lidocaine 0.05 mg/mg medicated patch [...] 0 Refills: 0 Ordered: 13-Dec-2021 DO Active [place] 3 500 CAPS (4 sources) [place] 3 500 CAPS TAKE 1 CAPSULE Daily [...] with patient; Translations: [Other specified counseling] Episodic Conditions associated with dizziness or vertigo (2 sources) Dizziness and giddiness; Translations: [Dizziness and giddiness] Onset: 02-14-2022 Resolved: 02-14-2022 Episodic Coronary atherosclerosis and other heart disease (20 sources) Coronary arteriosclerosis; 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 [place] coronary artery without angina pectoris] Onset: 09-03-2023 [...] fracture] Chronic Other aftercare (1 source) Other retirement (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; Translations: [OTH ALF CURRENT DRUG THERAPY] Onset: 02-22-2022 Episodic Other [...] Onset: 06-04-2023 Resolved: 12-24-2022 06-04-2023 Episodic Other circulatory disease (1 source) Other specified symptoms and signs involving the circulatory and respiratory systems; Translations: [Other specified symptoms and signs involving the circulatory and respiratory systems] Onset: 10-14-2023 Episodic Other connective tissue disease (20 sources) [...] Classification Problem Date Documented Da te Episodic/Chronic Other acquired deformities (1 source) Spondylolisthesis, lumbar [...] Test Name Value Interpretation Reference Range Facility US carotid doppler BIon 05-0 US carotid doppler [facility] [place] [address] Ultrasound Report Signed Patient: Lavonne Villatoro MR#: [id number] : 1935 Acct:[id number] Age/Sex: 88 / F ADM Date: 10/14/23 Loc: Room: Type: [facility] Attending Dr: Suhas Garrett DO Ordering Provider: Suhas Garrett DO Date of Service: 10/14/23 US/US carotid doppler BI: R42 - Dizziness and giddiness Copies to: Suhas Garrett DO CAROTID DUPLEX INDICATION: Vertigo PROCEDURE: Color-flow duplex scanning is used to interrogate the extracranial carotid arterial system, as well as both vertebral arteries. The proximal right internal carotid artery shows a highest peak systolic velocity of 69 with an end-diastolic velocity of 17 . The mid internal carotid artery measures 83 peak systolic with an end-diastolic velocity of 20 . The distal segment measures 96 peak systolic with an end diastolic velocity of 18 . The velocities of the right common carotid artery are 70 peak systolic and 14 end-diastolic proximally and 47 peak systolic and 11 end-diastolic distally. The peak systolic velocity ratio of the internal to the common carotid artery is 2.0 . The right external carotid artery measures 82 peak systolic. The right vertebral artery is patent at 39 peak systolic and with antegrade flow. The proximal left internal carotid artery shows a highest peak systolic velocity of 65 with an end- diastolic velocity of 18 . The mid internal carotid artery measures 68 peak systolic with an end- diastolic velocity of 20 . The distal segment measures 163 peak systolic with an end diastolic velocity of 30 . The velocities of the left common carotid artery are 92 peak systolic and 17 end-diastolic proximally and 70 peak systolic and 14 end-diastolic distally. The peak systolic velocity ratio of the internal to the common carotid artery is 2.3 . The left external carotid artery measures 67 peak systolic. The left vertebral artery is patent at 47 peak systolic with antegrade flow. US/US carotid doppler BI IMPRESSION: NO HEMODYNAMICALLY SIGNIFICANT STENOSIS OF EITHER EXTRACRANIAL INTERNAL CAROTID ARTERY. BOTH VERTEBRAL ARTERIES ARE PATENT WITH ANTEGRADE FLOW. Impression dictated by: Hola Wynn M.D.10/15/2023 11:47 AM Dictation Location: [place] [address] Tech: Jackie Aguillon Transcribed By: KIRILL 10/15/23 1147 Dictated By: Hola Wynn MD 10/15/23 1145 Signed By: 10/15/23 1147 Normal [facility] Complete Blood Count Auto Di ffon 09-03-2023 Basophils (Bld) [#/Vol] 0.0 10*3/uL Normal 0.0-0.2 [facility] Comment on above: Result Comment: PERF ORMED BY: [place] [address] PATHOLOGIST CUSTOMER CONTACT SPECIALIST JODY SOLANO M.D. Performed By: #### C MP, MG, CBC, CRP, T4F, TSH3, ESR, URIC #### [address] #### AUGUST, ASO, RA #### [facility] , Basophils/100 WBC (Bld) 0.7 % Normal . [facility] Comment on above: Performed By: #### C MP, MG, CBC, CRP, T4F, TSH3, ESR, URIC #### [address] #### AUGUST, ASO, RA #### [facility] , Eosinophils (Bld) [#/Vol] 0.1 10*3/uL Normal 0.0-0.45 [facility] Comment on above: Performed By: #### C MP, MG, CBC, CRP, T4F, TSH3, ESR, URIC #### [address] #### AUGUST, ASO, RA #### [facility] , Eosinophils/100 WBC (Bld) 1.6 % Normal . [facility] Comment on above: Performed By: #### C MP, MG, CBC, CRP, T4F, TSH3, ESR, URIC #### [place] [address] [place] #### AUGUST, ASO, RA #### [facility] , Erythrocyte distribution width (RBC) [Ratio] 14.8 % Normal 11.9-15.3 [facility] Comment on above: Performed By: #### C MP, MG, CBC, CRP, T4F, TSH3, ESR, URIC #### [address] #### AUGUST, ASO, RA #### [facility] , Hematocrit (Bld) [Volume fraction] 39.9 % Normal 34.0-46.4 [facility] Comment on above: Performed By: #### C MP, MG, CBC, CRP, T4F, TSH3, ESR, URIC #### [address] #### AUGUST, ASO, RA #### [facility] , Hemoglobin (Bld) [Mass/Vol] 13.2 g/dL Normal 11.8-15.4 [facility] Comment on above: Performed By: #### C MP, MG, CBC, CRP, T4F, TSH3, ESR, URIC #### [address] #### AUGUST, ASO, RA #### [facility] , Lymphocytes (Bld) [#/Vol] 2.6 10*3/uL Normal 1.00-4.8 [facility] Comment on above: Performed By: #### C MP, MG, CBC, CRP, T4F, TSH3, ESR, URIC #### [address] #### AUGUST, ASO, RA #### [facility] , Lymphocytes/100 WBC (Bld) 43.5 % Normal . [facility] Comment on above: Performed By: #### C MP, MG, CBC, CRP, T4F, TSH3, ESR, URIC #### [place] [address] [place] #### AUGUST, ASO, RA #### [facility] , MCH (RBC) [Entitic mass] 33.2 pg Normal 24.7-34.3 [facility] Comment on above: Performed By: #### C MP, MG, CBC, CRP, T4F, TSH3, ESR, URIC #### [address] #### AUGUST, ASO, RA #### [facility] , MCV (RBC) [Entitic vol] 100.5 fL High 80-100 [facility] Comment on above: Performed By: #### C MP, MG, CBC, CRP, T4F, TSH3, ESR, URIC #### [place] [address] [place] #### AUGUST, ASO, RA #### [facility] , Mean Corpuscular HGB Conc 33.0 g/dL Normal 32.0-35.0 [facility] Comment on above: Performed By: #### C MP, MG, CBC, CRP, T4F, TSH3, ESR, URIC #### [address] #### AUGUST, ASO, RA #### [facility] , Monocytes (Bld) [#/Vol] 0.6 10*3/uL Normal 0.0-0.8 [facility] Comment on above: Performed By: #### C MP, MG, CBC, CRP, T4F, TSH3, ESR, URIC #### [address] #### AUGUST, ASO, RA #### [facility] , Monocytes/100 WBC (Bld) 9.7 % Normal . [facility] Comment on above: Performed By: #### C MP, MG, CBC, CRP, T4F, TSH3, ESR, URIC #### [place] [address] [place] #### AUGUST, ASO, RA #### [facility] , Neutrophils (Bld) [#/Vol] 2.7 10*3/uL Normal 1.8-7.7 [facility] Comment on above: Performed By: #### C MP, MG, CBC, CRP, T4F, TSH3, ESR, URIC #### [place] [address] [place] #### AUGUST, ASO, RA #### [facility] , Neutrophils/100 WBC (Bld) 44.5 % Normal . [facility] Comment on above: Performed By: #### C MP, MG, CBC, CRP, T4F, TSH3, ESR, URIC #### [place] [address] [place] #### AUGUST, ASO, RA #### [facility] , NRBC% 0.2 /100{WBC} Normal 0-0.[address] [facility] Comment on above: Performed By: #### C MP, MG, CBC, CRP, T4F, TSH3, ESR, URIC #### [address] #### AUGUST, ASO, RA #### [facility] , Platelet mean volume (Bld) [Entitic vol] 9.2 fL Normal 6.3-10.7 [facility] Comment on above: Performed By: #### C MP, MG, CBC, CRP, T4F, TSH3, ESR, URIC #### [address] #### AUGUST, ASO, RA #### [facility] , Platelets (Bld) [#/Vol] 229 10*3/uL Normal 150-450 [facility] Comment on above: Performed By: #### C MP, MG, CBC, CRP, T4F, TSH3, ESR, URIC #### [place] [address] [place] #### AUGUST, ASO, RA #### [facility] , RBC (Bld) [#/Vol] 3.98 10*6/uL Normal 3.60-5.00 [facility] Comment on above: Performed By: #### C MP, MG, CBC, CRP, T4F, TSH3, ESR, URIC #### [place] [address] [place] #### AUGUST, ASO, RA #### [facility] , WBC (Bld) [#/Vol] 6.0 10*3/uL Normal 3.8-11.6 [facility] Comment on above: Performed By: #### C MP, MG, CBC, CRP, T4F, TSH3, ESR, URIC #### [place] [address] [place] #### AUGUST, ASO, RA #### [facility] , Comprehensive Metabolic Pane nory 09-03-2023 Albumin [Mass/Vol] 3.8 g/dL Normal 3.5-5.7 [facility] Comment on above: Performed By: #### C MP, MG, CBC, CRP, T4F, TSH3, ESR, URIC #### [place] [address] [place] #### AUGUST, ASO, RA #### [facility] , Albumin/Globulin [Mass ratio] 1.7 {ratio} Normal [facility] Comment on above: Performed By: #### C MP, MG, CBC, CRP, T4F, TSH3, ESR, URIC #### [place] [address] [place] #### AUGUST, ASO, RA #### [facility] , ALP [Catalytic activity/Vol] 72 U/L Normal 34-104 [facility] Comment on above: Performed By: #### C MP, MG, CBC, CRP, T4F, TSH3, ESR, URIC #### [place] [address] [place] #### AUGUST, ASO, RA #### [facility] , ALT [Catalytic activity/Vol] 43 U/L Normal 7-52 [facility] Comment on above: Performed By: #### C MP, MG, CBC, CRP, T4F, TSH3, ESR, URIC #### [place] [address] [place] #### AUGUST, ASO, RA #### [facility] , Anion gap [Moles/Vol] 8.9 mmol/L Normal 6.0-15.0 [facility] Comment on above: Performed By: #### C MP, MG, CBC, CRP, T4F, TSH3, ESR, URIC #### [facility] [address] [place] [address] [place] #### AUGUST, ASO, RA #### [facility] , AST [Catalytic activity/Vol] 23 U/L Normal 13-39 [facility] Comment on above: Performed By: #### C MP, MG, CBC, CRP, T4F, TSH3, ESR, URIC #### [address] #### AUGUST, ASO, RA #### [facility] , Bilirubin [Mass/Vol] 1.2 mg/dL High 0.3-1.0 [facility] Comment on above: Performed By: #### C MP, MG, CBC, CRP, T4F, TSH3, ESR, URIC #### [place] [address] [place] #### AUGUST, ASO, RA #### [facility] , Calcium [Mass/Vol] 9.5 mg/dL Normal 8.6-10.3 [facility] Comment on above: Performed By: #### C MP, MG, CBC, CRP, T4F, TSH3, ESR, URIC #### [place] [address] [place] #### AUGUST, ASO, RA #### [facility] , Chloride [Moles/Vol] 107 mmol/L Normal 98-107 [facility] Comment on above: Performed By: #### C MP, MG, CBC, CRP, T4F, TSH3, ESR, URIC #### [place] [address] [place] #### AUGUST, ASO, RA #### [facility] , CO2 [Moles/Vol] 30.0 mmol/L Normal 21.0-31.0 [facility] Comment on above: Performed By: #### C MP, MG, CBC, CRP, T4F, TSH3, ESR, URIC #### [place] [address] [place] #### AUGUST, ASO, RA #### [facility] , Creatinine [Mass/Vol] 0.76 mg/dL Normal 0.60-1.20 [facility] Comment on above: Performed By: #### C MP, MG, CBC, CRP, T4F, TSH3, ESR, URIC #### [address] #### AUGUST, ASO, RA #### [facility] , GFR/1.73 sq M.predicted MDRD (S/P/Bld) [Vol rate/Area] mL/min/{1.73_m2} Normal [facility] Comment on above: Performed By: #### C MP, MG, CBC, CRP, T4F, TSH3, ESR, URIC #### [place] [address] [place] #### AUGUST, ASO, RA #### [facility] , Globulin (S) [Mass/Vol] 2.2 g/dL Normal [facility] Comment on above: Performed By: #### C MP, MG, CBC, CRP, T4F, TSH3, ESR, URIC #### [place] [address] [place] #### AUGUST, ASO, RA #### [facility] , Glucose [Mass/Vol] 79 mg/dL Normal 70-100 [facility] Comment on above: Result Comment: [place] Glucose Reference Range is dependent on time and content of last meal. Glucose of more than 200 mg/dL in a nonstressed, ambulatory subject supports the diagnosis of Diabetes Mellitus. ADA recommended reference range Performed By: #### C MP, MG, CBC, CRP, T4F, TSH3, ESR, URIC #### [place] [address] [place] #### AUGUST, ASO, RA #### [facility] , Potassium [Moles/Vol] 3.9 mmol/L Normal 3.5-5.1 [facility] Comment on above: Performed By: #### C MP, MG, CBC, CRP, T4F, TSH3, ESR, URIC #### [place] [address] [place] #### AUGUST, ASO, RA #### [facility] , Protein [Mass/Vol] 6.0 g/dL Low 6.4-8.9 [facility] Comment on above: Performed By: #### C MP, MG, CBC, CRP, T4F, TSH3, ESR, URIC #### [place] [address] [place] #### AUGUST, ASO, RA #### [facility] , Sodium [Moles/Vol] 142 mmol/L Normal 136-145 [facility] Comment on above: Performed By: #### C MP, MG, CBC, CRP, T4F, TSH3, ESR, URIC #### [place] [address] [place] #### AUGUST, ASO, RA #### [facility] , Urea nitrogen [Mass/Vol] 22 mg/dL Normal 7-25 [facility] Comment on above: Performed By: #### C MP, MG, CBC, CRP, T4F, TSH3, ESR, URIC #### [place] [address] [place] #### AUGUST, ASO, RA #### [facility] , Lipid Panelon 09-03-2023 Cholesterol [Mass/Vol] 243 mg/dL High 140-200 [facility] Comment on above: Result Comment: Chol less than 200 mg/dl low risk Chol 201-239 mg/dl borderline risk Chol 240 mg/dl and greater high risk Performed By: #### C MP, MG, CBC, CRP, T4F, TSH3, ESR, URIC #### [place] [address] [place] #### AUGUST, ASO, RA #### [facility] , Cholesterol in HDL [Mass/Vol] 98 mg/dL High 23-92 [facility] Comment on above: Result Comment: HDL CHOL ATP-III CLASSIFICATION Cardiovascular Risk HDL > or equal to 60 mg/dL LOW HDL < 40 mg/dL HIGH Performed By: #### C MP, MG, CBC, CRP, T4F, TSH3, ESR, URIC #### [address] #### AUGUST, ASO, RA #### [facility] , Cholesterol.total/Cho lesterol in HDL [Mass ratio] 2.5 {ratio} Normal <5.0 [facility] Comment on above: Performed By: #### C MP, MG, CBC, CRP, T4F, TSH3, ESR, URIC #### [address] #### AUGUST, ASO, RA #### [facility] , LDL Cholesterol,Calculate d 121 mg/dL High 0-100 [facility] Comment on above: Result Comment: LDL ATP III CLASSIFICATION LDL less than 100 mg/dL Optimal LDL 100-129 mg/dL Near or above optimal LDL 130-159 mg/dL Borderline high LDL 160-189 mg/dL High LDL greater than 189 mg/dL Very high Performed By: #### C MP, MG, CBC, CRP, T4F, TSH3, ESR, URIC #### [place] [address] [place] #### AUGUST, ASO, RA #### [facility] , Triglyceride w/Reflex 122 mg/dL Normal 0-149 [facility] Comment on above: Result Comment: TRIG ATP III CLASSIFICATION TRIG less than 150 mg/dL Normal TRIG 150-199 mg/dL Borderline high TRIG 200-500 mg/dL High TRIG greater than 500 mg/dL Very high Standard traceable to the Center for Disease Conrtrol and Prevention (CDC) test method. Performed By: #### C MP, MG, CBC, CRP, T4F, TSH3, ESR, URIC #### [address] #### AUGUST, ASO, RA #### [facility] , VLDL CHOLESTEROL 24 mg/dL Normal [facility] Comment on above: Performed By: #### C MP, MG, CBC, CRP, T4F, TSH3, ESR, URIC #### [place] [address] [place] #### AUGUST, ASO, RA #### [facility] , Thyroid Stimulating Hormoneo n 09-03-2023 TSH Qn 4.01 m[IU]/L Normal 0.45-5.33 [facility] Comment on above: Result Comment: PERF ORMED BY: [place] [address] PATHOLOGIST CUSTOMER CONTACT SPECIALIST JODY SOLANO M.D. Performed By: #### C MP, MG, CBC, CRP, T4F, TSH3, ESR, URIC #### [address] #### AUGUST, ASO, RA #### [facility] , Complete Blood Count Auto Di ffon 07-08-2023 Basophils (Bld) [#/Vol] 0.890375116 10*3/uL Normal 0.0-0.2 10*3/uL [facility] Other Basophils/100 WBC (Bld) 0.900 % . % [facility] Other Eosinophils (Bld) [#/Vol] 0.126768188 10*3/uL Normal 0.0-0.45 10*3/uL [facility] Other Eosinophils/100 WBC (Bld) 1.100 % . % [facility] Other Erythrocyte distribution width (RBC) [Ratio] 14.000 % Normal 11.9-15.3 % [facility] Other Hematocrit (Bld) [Volume fraction] 37.700 % Normal 34.0-46.4 % [facility] Other Hemoglobin (Bld) [Mass/Vol] 12.062056 g/dL Normal 11.8-15.4 g/dL [facility] Other Lymphocytes (Bld) [#/Vol] 2.842392103 10*3/uL Normal 1.00-4.8 10*3/uL [facility] Other Lymphocytes/100 WBC (Bld) 35.100 % . % [facility] Other MCH (RBC) [Entitic mass] 33.3000 pg Normal 24.7-34.3 pg [facility] Other MCV (RBC) [Entitic vol] 99.7000 fL Normal 80-100 fL [facility] Other Monocytes (Bld) [#/Vol] 0.747331231 10*3/uL Normal 0.0-0.8 10*3/uL [facility] Other Monocytes/100 WBC (Bld) 10.000 % . % [facility] Other Neutrophils (Bld) [#/Vol] 3.484605561 10*3/uL Normal 1.8-7.7 10*3/uL [facility] Other Neutrophils/100 WBC (Bld) 52.900 % . % [facility] Other Platelet mean volume (Bld) [Entitic vol] 9.9000 fL Normal 6.3-10.7 fL [facility] Other WBC (Bld) [#/Vol] 7.082578357 10*3/uL Normal 3.8 -11.6 10*3/uL [facility] Other Complete Blood Count Auto Diff 7.1 10*3/uL Normal 3.8-11.6 10*3/uL [facility] Other Complete Blood Count Auto Diff 33.4 g/dL Normal 32.0-35.0 g/dL [facility] Other Complete Blood Count Auto Diff 0.1 /100{WBC} Normal 0-0.5 /100{WBC} [facility] Other Basophils (Bld) [#/Vol] 0.1 10*3/uL Normal 0.0-0.2 [facility] Comment on above: Order Comment: Reaso n for Exam Hyperthyroidism Result Comment: PERF ORMED BY: [place] [address] PATHOLOGIST CUSTOMER CONTACT SPECIALIST JODY SOLANO M.D. Performed By: #### C MP, MG, CBC, CRP, T4F, TSH3, ESR, URIC #### [address] #### AUGUST, ASO, RA #### [facility] , Basophils/100 WBC (Bld) 0.9 % Normal . [facility] Comment on above: Order Comment: Reaso n for Exam Hyperthyroidism Performed By: #### C MP, MG, CBC, CRP, T4F, TSH3, ESR, URIC #### [facility] [address] [place] [address] [place] #### AUGUST, ASO, RA #### [facility] , Eosinophils (Bld) [#/Vol] 0.1 10*3/uL Normal 0.0-0.45 [facility] Comment on above: Order Comment: Reaso n for Exam Hyperthyroidism Performed By: #### C MP, MG, CBC, CRP, T4F, TSH3, ESR, URIC #### [place] [address] [place] #### AUGUST, ASO, RA #### [facility] , Eosinophils/100 WBC (Bld) 1.1 % Normal . [facility] Comment on above: Order Comment: Reaso n for Exam Hyperthyroidism Performed By: #### C MP, MG, CBC, CRP, T4F, TSH3, ESR, URIC #### [address] #### AUGUST, ASO, RA #### [facility] , Erythrocyte distribution width (RBC) [Ratio] 14.0 % Normal 11.9-15.3 [facility] Comment on above: Order Comment: Reaso n for Exam Hyperthyroidism Performed By: #### C MP, MG, CBC, CRP, T4F, TSH3, ESR, URIC #### [address] #### AUGUST, ASO, RA #### [facility] , Hematocrit (Bld) [Volume fraction] 37.7 % Normal 34.0-46.4 [facility] Comment on above: Order Comment: Reaso n for Exam Hyperthyroidism Performed By: #### C MP, MG, CBC, CRP, T4F, TSH3, ESR, URIC #### [address] #### AUGUST, ASO, RA #### [facility] , Hemoglobin (Bld) [Mass/Vol] 12.6 g/dL Normal 11.8-15.4 [facility] Comment on above: Order Comment: Reaso n for Exam Hyperthyroidism Performed By: #### C MP, MG, CBC, CRP, T4F, TSH3, ESR, URIC #### [place] [address] [place] #### AUGUST, ASO, RA #### [facility] , Lymphocytes (Bld) [#/Vol] 2.5 10*3/uL Normal 1.00-4.8 [facility] Comment on above: Order Comment: Reaso n for Exam Hyperthyroidism Performed By: #### C MP, MG, CBC, CRP, T4F, TSH3, ESR, URIC #### [place] [address] [place] #### AUGUST, ASO, RA #### [facility] , Lymphocytes/100 WBC (Bld) 35.1 % Normal . [facility] Comment on above: Order Comment: Reaso n for Exam Hyperthyroidism Performed By: #### C MP, MG, CBC, CRP, T4F, TSH3, ESR, URIC #### [place] [address] [place] #### AUGUST, ASO, RA #### [facility] , MCH (RBC) [Entitic mass] 33.3 pg Normal 24.7-34.3 [facility] Comment on above: Order Comment: Reaso n for Exam Hyperthyroidism Performed By: #### C MP, MG, CBC, CRP, T4F, TSH3, ESR, URIC #### [address] #### AUGUST, ASO, RA #### [facility] , MCV (RBC) [Entitic vol] 99.7 fL Normal 80-100 [facility] Comment on above: Order Comment: Reaso n for Exam Hyperthyroidism Performed By: #### C MP, MG, CBC, CRP, T4F, TSH3, ESR, URIC #### [address] #### AUGUST, ASO, RA #### [facility] , Mean Corpuscular HGB Conc 33.4 g/dL Normal 32.0-35.0 [facility] Comment on above: Order Comment: Reaso n for Exam Hyperthyroidism Performed By: #### C MP, MG, CBC, CRP, T4F, TSH3, ESR, URIC #### [place] [address] [place] #### AUGUST, ASO, RA #### [facility] , Monocytes (Bld) [#/Vol] 0.7 10*3/uL Normal 0.0-0.8 [facility] Comment on above: Order Comment: Reaso n for Exam Hyperthyroidism Performed By: #### C MP, MG, CBC, CRP, T4F, TSH3, ESR, URIC #### [place] [address] [place] #### AUGUST, ASO, RA #### [facility] , Monocytes/100 WBC (Bld) 10.0 % Normal . [facility] Comment on above: Order Comment: Reaso n for Exam Hyperthyroidism Performed By: #### C MP, MG, CBC, CRP, T4F, TSH3, ESR, URIC #### [address] #### AUGUST, ASO, RA #### [facility] , Neutrophils (Bld) [#/Vol] 3.7 10*3/uL Normal 1.8-7.7 [facility] Comment on above: Order Comment: Reaso n for Exam Hyperthyroidism Performed By: #### C MP, MG, CBC, CRP, T4F, TSH3, ESR, URIC #### [address] #### AUGUST, ASO, RA #### [facility] , Neutrophils/100 WBC (Bld) 52.9 % Normal . [facility] Comment on above: Order Comment: Reaso n for Exam Hyperthyroidism Performed By: #### C MP, MG, CBC, CRP, T4F, TSH3, ESR, URIC #### [place] [address] [place] #### AUGUST, ASO, RA #### [facility] , NRBC% 0.1 /100{WBC} Normal 0-0.[address] [facility] Comment on above: Order Comment: Reaso n for Exam Hyperthyroidism Performed By: #### C MP, MG, CBC, CRP, T4F, TSH3, ESR, URIC #### [place] [address] [place] #### AUGUST, ASO, RA #### [facility] , Platelet mean volume (Bld) [Entitic vol] 9.9 fL Normal 6.3-10.7 [facility] Comment on above: Order Comment: Reaso n for Exam Hyperthyroidism Performed By: #### C MP, MG, CBC, CRP, T4F, TSH3, ESR, URIC #### [facility] [address] [place] [address] [place] #### AUGUST, ASO, RA #### [facility] , Platelets (Bld) [#/Vol] 224 10*3/uL Normal 150-450 [facility] Other Comment on above: Order Comment: Reaso n for Exam Hyperthyroidism Performed By: #### C MP, MG, CBC, CRP, T4F, TSH3, ESR, URIC #### [place] [address] [place] #### AUGUST, ASO, RA #### [facility] , RBC (Bld) [#/Vol] 3.78 10*6/uL Normal 3.60-5.00 [facility] Other Comment on above: Order Comment: Reaso n for Exam Hyperthyroidism Performed By: #### C MP, MG, CBC, CRP, T4F, TSH3, ESR, URIC #### [place] [address] [place] #### AUGUST, ASO, RA #### [facility] , WBC (Bld) [#/Vol] 7.1 10*3/uL Normal 3.8-11.6 [facility] Comment on above: Order Comment: Reaso n for Exam Hyperthyroidism Performed By: #### C MP, MG, CBC, CRP, T4F, TSH3, ESR, URIC #### [facility] [address] [place] [address] [place] #### AUGUST, ASO, RA #### [facility] , Comprehensive Metabolic Pane nory 07-08-2023 Albumin [Mass/Vol] 3.013181 g/dL Normal 3.5-5.7 g/dL N [facility] Other Bilirubin [Mass/Vol] 0.5664824 mg/dL Normal 0.3- 1.0 mg/dL [facility] Other Calcium [Mass/Vol] 9.2369079 mg/dL Normal 8.6-10 .3 mg/dL [facility] Other CO2 [Moles/Vol] 30.06071167 mmol/L Normal 21.0-3 1.0 mmol/L [facility] Other Creatinine [Mass/Vol] 0.68677242 mg/dL Normal 0. 60-1.20 mg/dL [facility] Other Potassium [Moles/Vol] 3.45546350 mmol/L Normal 3 .5-5.1 mmol/L [facility] Other Protein [Mass/Vol] 6.553209 g/dL Low 6.4-8.9 g/dL N [facility] Other Comprehensive Metabolic Panel 2.2 g/dL [facility] Other Albumin [Mass/Vol] 3.8 g/dL Normal 3.5-5.7 [facility] Comment on above: Order Comment: Reaso n for Exam Hyperthyroidism Performed By: #### C MP, MG, CBC, CRP, T4F, TSH3, ESR, URIC #### [place] [address] [place] #### AUGUST, ASO, RA #### [facility] , Albumin/Globulin [Mass ratio] 1.7 {ratio} Normal [facility] Other Comment on above: Order Comment: Reaso n for Exam Hyperthyroidism Performed By: #### C MP, MG, CBC, CRP, T4F, TSH3, ESR, URIC #### [facility] [address] [place] [address] [place] #### AUGUST, ASO, RA #### [facility] , ALP [Catalytic activity/Vol] 140 U/L High 34-104 [facility] Other Comment on above: Order Comment: Reaso n for Exam Hyperthyroidism Performed By: #### C MP, MG, CBC, CRP, T4F, TSH3, ESR, URIC #### [facility] [address] [place] [address] #### AUGUST, ASO, RA #### [facility] , ALT [Catalytic activity/Vol] 71 U/L High 7-52 [facility] Other Comment on above: Order Comment: Reaso n for Exam Hyperthyroidism Performed By: #### C MP, MG, CBC, CRP, T4F, TSH3, ESR, URIC #### [address] #### AUGUST, ASO, RA #### [facility] , Anion gap [Moles/Vol] 9.0 mmol/L Normal 6.0-15.0 [facility] Comment on above: Order Comment: Reaso n for Exam Hyperthyroidism Performed By: #### C MP, MG, CBC, CRP, T4F, TSH3, ESR, URIC #### [facility] [address] [place] [address] #### AUGUST, ASO, RA #### [facility] , AST [Catalytic activity/Vol] 20 U/L Normal 13-39 [facility] Other Comment on above: Order Comment: Reaso n for Exam Hyperthyroidism Performed By: #### C MP, MG, CBC, CRP, T4F, TSH3, ESR, URIC #### [facility] [address] [place] [address] [place] #### AUGUST, ASO, RA #### [facility] , Bilirubin [Mass/Vol] 0.7 mg/dL Normal 0.3-1.0 [facility] Comment on above: Order Comment: Reaso n for Exam Hyperthyroidism Performed By: #### C MP, MG, CBC, CRP, T4F, TSH3, ESR, URIC #### [place] [address] [place] #### AUGUST, ASO, RA #### [facility] , Calcium [Mass/Vol] 9.4 mg/dL Normal 8.6-10.3 [facility] Comment on above: Order Comment: Reaso n for Exam Hyperthyroidism Performed By: #### C MP, MG, CBC, CRP, T4F, TSH3, ESR, URIC #### [place] [address] [place] #### AUGUST, ASO, RA #### [facility] , Chloride [Moles/Vol] 107 mmol/L Normal 98-107 [employer] Other Comment on above: Order Comment: Reaso n for Exam Hyperthyroidism Performed By: #### C MP, MG, CBC, CRP, T4F, TSH3, ESR, URIC #### [place] [address] [place] #### AUGUST, ASO, RA #### [facility] , CO2 [Moles/Vol] 30.7 mmol/L Normal 21.0-31.0 [facility] Comment on above: Order Comment: Reaso n for Exam Hyperthyroidism Performed By: #### C MP, MG, CBC, CRP, T4F, TSH3, ESR, URIC #### [facility] [address] [place] [address] [place] #### AUGUST, ASO, RA #### [facility] , Creatinine [Mass/Vol] 0.76 mg/dL Normal 0.60-1.20 [facility] Comment on above: Order Comment: Reaso n for Exam Hyperthyroidism Performed By: #### C MP, MG, CBC, CRP, T4F, TSH3, ESR, URIC #### [place] [address] [place] #### AUGUST, ASO, RA #### [facility] , GFR/1.73 sq M.predicted MDRD (S/P/Bld) [Vol rate/Area] mL/min/{1.73_m2} Normal [facility] Other Comment on above: Order Comment: Reaso n for Exam Hyperthyroidism Performed By: #### C MP, MG, CBC, CRP, T4F, TSH3, ESR, URIC #### [place] [address] [place] #### AUGUST, ASO, RA #### [facility] , Globulin (S) [Mass/Vol] 2.2 g/dL Normal [facility] Comment on above: Order Comment: Reaso n for Exam Hyperthyroidism Performed By: #### C MP, MG, CBC, CRP, T4F, TSH3, ESR, URIC #### [place] [address] [place] #### AUGUST, ASO, RA #### [facility] , Glucose [Mass/Vol] 89 mg/dL Normal 70-100 [facility] Other Comment on above: Order Comment: Reaso n for Exam Hyperthyroidism Result Comment: [place] Glucose Reference Range is dependent on time and content of last meal. Glucose of more than 200 mg/dL in a nonstressed, ambulatory subject supports the diagnosis of Diabetes Mellitus. ADA recommended reference range Performed By: #### C MP, MG, CBC, CRP, T4F, TSH3, ESR, URIC #### [place] [address] [place] #### AUGUST, ASO, RA #### [facility] , Potassium [Moles/Vol] 3.7 mmol/L Normal 3.5-5.1 [facility] Comment on above: Order Comment: Reaso n for Exam Hyperthyroidism Performed By: #### C MP, MG, CBC, CRP, T4F, TSH3, ESR, URIC #### [place] [address] [place] #### AUGUST, ASO, RA #### [facility] , Protein [Mass/Vol] 6.0 g/dL Low 6.4-8.9 [facility] Comment on above: Order Comment: Reaso n for Exam Hyperthyroidism Performed By: #### C MP, MG, CBC, CRP, T4F, TSH3, ESR, URIC #### [place] [address] [place] #### AUGUST, ASO, RA #### [facility] , Sodium [Moles/Vol] 143 mmol/L Normal 136-145 [facility] Other Comment on above: Order Comment: Reaso n for Exam Hyperthyroidism Performed By: #### C MP, MG, CBC, CRP, T4F, TSH3, ESR, URIC #### [address] #### AUGUST, ASO, RA #### [facility] , Urea nitrogen [Mass/Vol] 21 mg/dL Normal 7-25 [facility] Other Comment on above: Order Comment: Reaso n for Exam Hyperthyroidism Performed By: #### C MP, MG, CBC, CRP, T4F, TSH3, ESR, URIC #### [facility] [address] [place] [address] [place] #### AUGUST, ASO, RA #### [facility] , Free T4 (Free Thyroxine)on 0 07-08-2023 Free T4 [Mass/Vol] 1.53043260 ng/dL High 0.61- 1.12 ng/dL [facility] Other Free T4 [Mass/Vol] 1.46 ng/dL High 0.61-1.12 [facility] Comment on above: Order Comment: Reaso n for Exam Hyperthyroidism Performed By: #### C MP, MG, CBC, CRP, T4F, TSH3, ESR, URIC #### [place] [address] [place] #### AUGUST, ASO, RA #### [facility] , Thyroid Antibodies TPO+Tg Ab on 07-08-2023 Thyroid Antibodies TPO+Tg Ab 11 0-34 [facility] Other Thyroid Antibodies TPO+Tg Ab <1.0 0.0-0.9 [facility] Other Antithyroglobulin Ab <1.0 Normal 0.0-0.9 [facility] Comment on above: Order Comment: Reaso n for Exam Hyperthyroidism Result Comment: Thyr oglobulin Antibody measured by [employer] Performed at: - [facility] [id number] Criminal Legal Assistant: Antonino Belle PhD, Phone: [phone] PERFORMED BY: [place] [address] PATHOLOGIST CUSTOMER CONTACT SPECIALIST JODY SOLANO M.D. Performed By: #### C MP, MG, CBC, CRP, T4F, TSH3, ESR, URIC #### [facility] [address] [place] [address] #### AUGUST, ASO, RA #### [facility] , Thyroid Peroxidase Antibodies 11 Normal 0-34 [facility] Comment on above: Order Comment: Reaso n for Exam Hyperthyroidism Performed By: #### C MP, MG, CBC, CRP, T4F, TSH3, ESR, URIC #### [address] #### AUGUST, ASO, RA #### [facility] , Thyroid Stimulating Hormoneo n 07-08-2023 TSH Qn 2.40354647654 m[IU]/L Normal 0.45-5.33 u[iU]/mL [facility] Other TSH Qn 2.42 m[IU]/L Normal 0.45-5.33 [facility] Comment on above: Order Comment: Reaso n for Exam Hyperthyroidism Result Comment: PERF ORMED BY: [place] [address] PATHOLOGIST CUSTOMER CONTACT SPECIALIST JODY SOLANO M.D. Performed By: #### C MP, MG, CBC, CRP, T4F, TSH3, ESR, URIC #### [facility] [address] #### AUGUST, ASO, RA #### [facility] , AUGUST Antinuclear Antibodieson 07-04-2023 Antinuclear Abs, IFA Positive Critically abnormal . [facility] Comment on above: Result Comment: Nega tive <1:80 Borderline 1:80 Positive >1:80 Speckled cytoplasmic fluorescence is present. The antibodies noted in this pattern may be associated with, but not restricted to, primary biliary cirrhosis (PBC), polymyositis and dermatomyositis (PM/DM), and/or systemic lupus erythematosus (SLE). Performed By: #### C MP, MG, CBC, CRP, T4F, TSH3, ESR, URIC #### [facility] [address] [place] [address] [place] #### AUGUTS, ASO, RA #### [facility] , Homogeneous Pattern 1:160 High . [facility] Comment on above: Result Comment: ICAP nomenclature: [id number] Performed By: #### C MP, MG, CBC, CRP, T4F, TSH3, ESR, URIC #### [facility] [address] [place] [address] #### AUGUST, ASO, RA #### [facility] , Note 1 Normal . [facility] Comment on above: Result Comment: Lucita marshall Potential Disease Association Homogeneous Systemic Lupus Erythematosus, Drug Induced Systemic Lupus Erythematosus, Chronic Autoimmune hepatitis, Juvenile Idiopathic Arthritis Speckled Sjogren Syndrome, Systemic Lupus Erythematosus, Subacute Cutaneous Lupus, Lupus, Congenital Heart Block, Mixed Connective Tissue Disease, Scleroderma-diffuse, Scleroderma-Autoimmune Myositis Overlap Syndrome, Systemic Lupus Birudulnubvey-Isojhdyfegg-Xafebhszgr Myositis Overlap Syndrome, Systemic Autoimmune Rheumatic Disease, [...] Cytopenias, Linear Scleroderma, Antiphospholipid Syndrome Performed at: [facility] [id number] Criminal Legal Assistant: Antonino Belle PhD, Phone: [phone] Performed By: #### C MP, MG, CBC, CRP, T4F, TSH3, ESR, URIC #### [address] #### AUGUST, ASO, RA #### [facility] , Anti-Streptolysin O Antibody on 07-04-2023 Anti-Streptolysin O Antibody <20.0 Normal 0.0-200.0 [facility] Comment on above: Result Comment: Perf ormed at: - [facility] [address] [id number] Criminal Legal Assistant: Antonino Belle PhD, Phone: [phone] PERFORMED BY: [place] [address] PATHOLOGIST CUSTOMER CONTACT SPECIALIST JODY SOLANO M.D. Performed By: #### C MP, MG, CBC, CRP, T4F, TSH3, ESR, URIC #### [address] #### AUGUST, ASO, RA #### [facility] , C-Reactive Proteinon 024 C-Reactive Protein 0.5 mg/dL Normal 0.0-0.5 [facility] Comment on above: Performed By: #### C MP, MG, CBC, CRP, T4F, TSH3, ESR, URIC #### [address] #### AUGUST, ASO, RA #### [facility] , Complete Blood Count Auto Di ffon 07-04-2023 Basophils (Bld) [#/Vol] 0.0 10*3/uL Normal 0.0-0.2 [facility] Comment on above: Performed By: #### C MP, MG, CBC, CRP, T4F, TSH3, ESR, URIC #### [place] [address] [place] #### AUGUST, ASO, RA #### [facility] , Basophils/100 WBC (Bld) 0.6 % Normal . [facility] Comment on above: Performed By: #### C MP, MG, CBC, CRP, T4F, TSH3, ESR, URIC #### [address] #### AUGUST, ASO, RA #### [facility] , Eosinophils (Bld) [#/Vol] 0.1 10*3/uL Normal 0.0-0.45 [facility] Comment on above: Performed By: #### C MP, MG, CBC, CRP, T4F, TSH3, ESR, URIC #### [address] #### AUGUST, ASO, RA #### [facility] , Eosinophils/100 WBC (Bld) 0.7 % Normal . [facility] Comment on above: Performed By: #### C MP, MG, CBC, CRP, T4F, TSH3, ESR, URIC #### [place] [address] [place] #### AUGUST, ASO, RA #### [facility] , Erythrocyte distribution width (RBC) [Ratio] 14.1 % Normal 11.9-15.3 [facility] Comment on above: Performed By: #### C MP, MG, CBC, CRP, T4F, TSH3, ESR, URIC #### [address] #### AUGUST, ASO, RA #### [facility] , Hematocrit (Bld) [Volume fraction] 38.8 % Normal 34.0-46.4 [facility] Comment on above: Performed By: #### C MP, MG, CBC, CRP, T4F, TSH3, ESR, URIC #### [place] [address] [place] #### AUGUST, ASO, RA #### [facility] , Hemoglobin (Bld) [Mass/Vol] 13.4 g/dL Normal 11.8-15.4 [facility] Comment on above: Performed By: #### C MP, MG, CBC, CRP, T4F, TSH3, ESR, URIC #### [address] #### AUGUST, ASO, RA #### [facility] , Lymphocytes (Bld) [#/Vol] 1.0 10*3/uL Normal 1.00-4.8 [facility] Comment on above: Performed By: #### C MP, MG, CBC, CRP, T4F, TSH3, ESR, URIC #### [address] #### AUGUST, ASO, RA #### [facility] , Lymphocytes/100 WBC (Bld) 13.9 % Normal . [facility] Comment on above: Performed By: #### C MP, MG, CBC, CRP, T4F, TSH3, ESR, URIC #### [address] #### AUGUST, ASO, RA #### [facility] , MCH (RBC) [Entitic mass] 33.9 pg Normal 24.7-34.3 [facility] Comment on above: Performed By: #### C MP, MG, CBC, CRP, T4F, TSH3, ESR, URIC #### [address] #### AUGUST, ASO, RA #### [facility] , MCV (RBC) [Entitic vol] 98.3 fL Normal 80-100 [facility] Comment on above: Performed By: #### C MP, MG, CBC, CRP, T4F, TSH3, ESR, URIC #### [place] [address] [place] #### AUGUST, ASO, RA #### [facility] , Mean Corpuscular HGB Conc 34.4 g/dL Normal 32.0-35.0 [facility] Comment on above: Performed By: #### C MP, MG, CBC, CRP, T4F, TSH3, ESR, URIC #### [place] [address] [place] #### AUGUST, ASO, RA #### [facility] , Monocytes (Bld) [#/Vol] 0.4 10*3/uL Normal 0.0-0.8 [facility] Comment on above: Performed By: #### C MP, MG, CBC, CRP, T4F, TSH3, ESR, URIC #### [place] [address] [place] #### AUGUST, ASO, RA #### [facility] , Monocytes/100 WBC (Bld) 5.4 % Normal . [facility] Comment on above: Performed By: #### C MP, MG, CBC, CRP, T4F, TSH3, ESR, URIC #### [address] #### AUGUST, ASO, RA #### [facility] , Neutrophils (Bld) [#/Vol] 5.8 10*3/uL Normal 1.8-7.7 [facility] Comment on above: Performed By: #### C MP, MG, CBC, CRP, T4F, TSH3, ESR, URIC #### [address] #### AUGUST, ASO, RA #### [facility] , Neutrophils/100 WBC (Bld) 79.4 % Normal . [facility] Comment on above: Performed By: #### C MP, MG, CBC, CRP, T4F, TSH3, ESR, URIC #### [place] [address] [place] #### AUGUST, ASO, RA #### [facility] , NRBC% 0.0 /100{WBC} Normal 0-0.[address] [facility] Comment on above: Performed By: #### C MP, MG, CBC, CRP, T4F, TSH3, ESR, URIC #### [address] #### AUGUST, ASO, RA #### [facility] , Platelet mean volume (Bld) [Entitic vol] 9.6 fL Normal 6.3-10.7 [facility] Comment on above: Performed By: #### C MP, MG, CBC, CRP, T4F, TSH3, ESR, URIC #### [place] [address] [place] #### AUGUST, ASO, RA #### [facility] , Platelets (Bld) [#/Vol] 211 10*3/uL Normal 150-450 [facility] Comment on above: Performed By: #### C MP, MG, CBC, CRP, T4F, TSH3, ESR, URIC #### [address] #### AUGUST, ASO, RA #### [facility] , RBC (Bld) [#/Vol] 3.95 10*6/uL Normal 3.60-5.00 [facility] Comment on above: Performed By: #### C MP, MG, CBC, CRP, T4F, TSH3, ESR, URIC #### [place] [address] [place] #### AUGUST, ASO, RA #### [facility] , WBC (Bld) [#/Vol] 7.3 10*3/uL Normal 3.8-11.6 [facility] Comment on above: Performed By: #### C MP, MG, CBC, CRP, T4F, TSH3, ESR, URIC #### [place] [address] [place] #### AUGUST, ASO, RA #### [facility] , Comprehensive Metabolic Pane nory 07-04-2023 Albumin [Mass/Vol] 4.2 g/dL Normal 3.5-5.7 [facility] Comment on above: Performed By: #### C MP, MG, CBC, CRP, T4F, TSH3, ESR, URIC #### [place] [address] [place] #### AUGUST, ASO, RA #### [facility] , Albumin/Globulin [Mass ratio] 1.8 {ratio} Normal [facility] Comment on above: Performed By: #### C MP, MG, CBC, CRP, T4F, TSH3, ESR, URIC #### [facility] [address] [place] [address] [place] #### AUGUST, ASO, RA #### [facility] , ALP [Catalytic activity/Vol] 220 U/L High 34-104 [facility] Comment on above: Performed By: #### C MP, MG, CBC, CRP, T4F, TSH3, ESR, URIC #### [place] [address] [place] #### AUGUST, ASO, RA #### [facility] , ALT [Catalytic activity/Vol] 181 U/L High 7-52 [facility] Comment on above: Performed By: #### C MP, MG, CBC, CRP, T4F, TSH3, ESR, URIC #### [place] [address] [place] #### AUGUST, ASO, RA #### [facility] , Anion gap [Moles/Vol] 11.0 mmol/L Normal 6.0-15.0 [facility] Comment on above: Performed By: #### C MP, MG, CBC, CRP, T4F, TSH3, ESR, URIC #### [place] [address] [place] #### AUGUST, ASO, RA #### [facility] , AST [Catalytic activity/Vol] 56 U/L High 13-39 [facility] Comment on above: Performed By: #### C MP, MG, CBC, CRP, T4F, TSH3, ESR, URIC #### [place] [address] [place] #### AUGUST, ASO, RA #### [facility] , Bilirubin [Mass/Vol] 1.2 mg/dL High 0.3-1.0 [facility] Comment on above: Performed By: #### C MP, MG, CBC, CRP, T4F, TSH3, ESR, URIC #### [address] #### AUGUST, ASO, RA #### [facility] , Calcium [Mass/Vol] 10.0 mg/dL Normal 8.6-10.3 [facility] Comment on above: Performed By: #### C MP, MG, CBC, CRP, T4F, TSH3, ESR, URIC #### [address] #### AUGUST, ASO, RA #### [facility] , Chloride [Moles/Vol] 105 mmol/L Normal 98-107 [facility] Comment on above: Performed By: #### C MP, MG, CBC, CRP, T4F, TSH3, ESR, URIC #### [place] [address] [place] #### AUGUST, ASO, RA #### [facility] , CO2 [Moles/Vol] 29.8 mmol/L Normal 21.0-31.0 [facility] Comment on above: Performed By: #### C MP, MG, CBC, CRP, T4F, TSH3, ESR, URIC #### [place] [address] [place] #### AUGUST, ASO, RA #### [facility] , Creatinine [Mass/Vol] 0.68 mg/dL Normal 0.60-1.20 [facility] Comment on above: Performed By: #### C MP, MG, CBC, CRP, T4F, TSH3, ESR, URIC #### [place] [address] [place] #### AUGUST, ASO, RA #### [facility] , GFR/1.73 sq M.predicted MDRD (S/P/Bld) [Vol rate/Area] mL/min/{1.73_m2} Normal [facility] Comment on above: Performed By: #### C MP, MG, CBC, CRP, T4F, TSH3, ESR, URIC #### [place] [address] [place] #### AUGUST, ASO, RA #### [facility] , Globulin (S) [Mass/Vol] 2.4 g/dL Normal [facility] Comment on above: Performed By: #### C MP, MG, CBC, CRP, T4F, TSH3, ESR, URIC #### [place] [address] [place] #### AUGUST, ASO, RA #### [facility] , Glucose [Mass/Vol] 97 mg/dL Normal 70-100 [facility] Comment on above: Result Comment: [facility] Glucose Reference Range is dependent on time and content of last meal. Glucose of more than 200 mg/dL in a nonstressed, ambulatory subject supports the diagnosis of Diabetes Mellitus. ADA recommended reference range Performed By: #### C MP, MG, CBC, CRP, T4F, TSH3, ESR, URIC #### [place] [address] [place] #### AUGUST, ASO, RA #### [facility] , Potassium [Moles/Vol] 3.8 mmol/L Normal 3.5-5.1 [facility] Comment on above: Performed By: #### C MP, MG, CBC, CRP, T4F, TSH3, ESR, URIC #### [place] [address] [place] #### AUGUST, ASO, RA #### [facility] , Protein [Mass/Vol] 6.6 g/dL Normal 6.4-8.9 [facility] Comment on above: Performed By: #### C MP, MG, CBC, CRP, T4F, TSH3, ESR, URIC #### [address] #### AUGUST, ASO, RA #### [facility] , Sodium [Moles/Vol] 142 mmol/L Normal 136-145 [facility] Comment on above: Performed By: #### C MP, MG, CBC, CRP, T4F, TSH3, ESR, URIC #### [address] #### AUGUST, ASO, RA #### [facility] , Urea nitrogen [Mass/Vol] 19 mg/dL Normal 7-25 [facility] Comment on above: Performed By: #### C MP, MG, CBC, CRP, T4F, TSH3, ESR, URIC #### [address] #### AUGUST, ASO, RA #### [facility] , Erythrocyte Sedimentation Ra amy 07-04-2023 ESR (Bld) [Velocity] 19 mm/h Normal 0-29 [facility] Comment on above: Result Comment: PERF ORMED BY: [place] [address] PATHOLOGIST CUSTOMER CONTACT SPECIALIST JODY SOLANO M.D. Performed By: #### C MP, MG, CBC, CRP, T4F, TSH3, ESR, URIC #### [address] #### AUGUST, ASO, RA #### [facility] , Free T4 (Free Thyroxine)on 0 07-04-2023 Free T4 [Mass/Vol] 4.05 ng/dL High 0.61-1.12 [facility] Comment on above: Performed By: #### C MP, MG, CBC, CRP, T4F, TSH3, ESR, URIC #### [place] [address] [place] #### AUGUST, ASO, RA #### [facility] , Magnesiumon 07-04-2023 Magnesium [Mass/Vol] 2.0 mg/dL Normal 1.9-2.7 [facility] Comment on above: Performed By: #### C MP, MG, CBC, CRP, T4F, TSH3, ESR, URIC #### [address] #### AUGUST, ASO, RA #### [facility] , Rheumatoid Factoron 07-04-19 Rheumatoid Factor 15.3 High <14.0 [facility] [facility] Comment on above: Result Comment: Perf ormed at: - [facility] [id number] Criminal Legal Assistant: Antonino Belle PhD, Phone: [phone] Performed By: #### C MP, MG, CBC, CRP, T4F, TSH3, ESR, URIC #### [address] #### AUGUST, ASO, RA #### [facility] , Thyroid Stimulating Hormoneo n 07-04-2023 TSH Qn 1.35 m[IU]/L Normal 0.45-5.33 [facility] Comment on above: Result Comment: PERF ORMED BY: [place] [address] PATHOLOGIST CUSTOMER CONTACT SPECIALIST JODY SOLANO M.D. Performed By: #### C MP, MG, CBC, CRP, T4F, TSH3, ESR, URIC #### [address] #### AUGUST, ASO, RA #### [facility] , Uric Acidon 07-04-2023 Urate [Mass/Vol] 4.0 mg/dL Normal 2.3-6.6 [facility] Comment on above: Performed By: #### C MP, MG, CBC, CRP, T4F, TSH3, ESR, URIC #### [place] [address] [place] #### AUGUST, ASO, RA #### [facility] , Echocardiogramon 02-26-2023 Echocardiography [facility] [address] [place] [address], [address], [place] [address] TRANSTHORACIC ECHOCARDIOGRAM REPORT Patient Name: LAVONNE Bahena Physician: [id number] Shy Wolf MD, [facility] Study Date: 02/26/2023 Referring SHY WOLF Physician: MRN/PID: [id number] PCP: Suhas Garrett MD Accession/Order#: [id number] Department [facility] Location: Date of : 1935 Fellow: Gender: F Nurse: Admit Date: Test Analyst: Sheridan Lemus RDCS, T Height: 157.48 cm CC Report to: Weight: 67.13 kg Study Type: Echocardiogram BSA: 1.68 m2 Blood Pressure: 122 /76 mmHg Diagnosis/ICD: I35.0-Nonrheumatic aortic (valve) stenosis; R01.1-Cardiac murmur, unspecified Indication: HTN, Hyperlipidemia, Overweight, Hypothyroid, Polymyalgia Rheumatica Procedure/CPT: Echo Complete w Full [id number] Study Detail: The following Echo studies were [...] mmHg PIEDV: 2.50 m/s PADP: 28.0 mmHg [id number] Shy Wolf MD, FACC Electronically signed on 03/01/2023 at 2:16:46 PM Final Normal [facility] Office Visit (Cardiology)on 12-24-2022 Follow-up visit Diagnoses/Problems Assessed Aortic stenosis (424.1) (I35.0) Murmur, cardiac (785.2) (R01.1) Essential hypertension (401.9) (I10) Hyperlipidemia (272.4) (E78.5) Overweight with body mass index (BMI) of 27 to 27.9 in adult (278.02,V85.23) (E66.3,Z68.27) Never smoker Hypothyroidism (244.9) (E03.9) PMR (polymyalgia rheumatica) (725) (M35.3) Orders Aortic stenosis, Murmur, cardiac Echocardiogram; Status:Hold For - Scheduling,Retrospec tive Authorization; Requested for:[id number]; Essential hypertension, Hyperlipidemia Changed: From Aspirin EC 81 MG TBEC TAKE 1 TABLET To Aspirin 81 MG Oral Tablet Delayed Release TAKE 1 TABLET DAILY Overweight with body mass index (BMI) of 27 to 27.9 in adult Healthy Weight Tips; Status:Complete - Retrospective Authorization; Done: [id number] Some eating tips that can help you lose weight.; Status:Complete - Retrospective Authorization; Done: [id number] SocHx: Never smoker Tobacco Use Screening; Status:Complete; Done: [id number] Patient Instructions Please bring all medicines, vitamins, [...] is being tapered gradually Shy Wolf MD, [facility] Past Medical History Problems History of Carotid [...] Multi Vitamin Oral TabletTAKE 1 TABLET DAILY. [place]-3 Fish Oil 1000 MG Oral CapsuleTAKE 1 [...] negative for complaint. Vitals Vital Signs Recorded: [id number] 11:32AM Heart Rate68, R Radial Asvfhipr498, RUE, Sitting Cqlfwmtvy73, RUE, Sitting Height5 ft 2 in Kngdlj552 lb BMI Mginbhotwj79.07 kg/m2 BSA Calculated1.68 Tobacco Useb) No PHQ-2 [...] distress a (more content not included)... Normal [facility] Tobacco Screening.on 023 Adult depression screening assessment No [employer] 250 DO Work Phone: Fall risk assessment a) No falls within the last year [employer] 250 DO Work Phone: Tobacco use status CPHS b) No [employer] 250 DO Work Phone: Complete Blood Count Auto Di ffon 02-22-2022 Basophils (Bld) [#/Vol] 0.654812000 10*3/uL Normal 0.0-0.2 10*3/uL [facility] Other Basophils/100 WBC (Bld) 0.700 % . % [facility] Other Eosinophils (Bld) [#/Vol] 0.915296182 10*3/uL Normal 0.0-0.45 10*3/uL [facility] Other Eosinophils/100 WBC (Bld) 0.700 % . % [facility] Other Erythrocyte distribution width (RBC) [Ratio] 13.500 % Normal 11.9-15.3 % [facility] Other Hematocrit (Bld) [Volume fraction] 38.400 % Normal 34.0-46.4 % [facility] Other Hemoglobin (Bld) [Mass/Vol] 12.697227 g/dL Normal 11.8-15.4 g/dL [facility] Other Lymphocytes (Bld) [#/Vol] 0.775750419 10*3/uL Low 1.00-4.8 10*3/uL [facility] Other Lymphocytes/100 WBC (Bld) 12.600 % . % [facility] Other MCH (RBC) [Entitic mass] 33.7000 pg Normal 24.7-34.3 pg [facility] Other MCV (RBC) [Entitic vol] 100.4000 fL High 80-100 fL [facility] Other Monocytes (Bld) [#/Vol] 0.767122605 10*3/uL Normal 0.0-0.8 10*3/uL [facility] Other Monocytes/100 WBC (Bld) 6.800 % . % [facility] Other Neutrophils (Bld) [#/Vol] 5.728310205 10*3/uL Normal 1.8-7.7 10*3/uL [facility] Other Neutrophils/100 WBC (Bld) 79.200 % . % [facility] Other Platelet mean volume (Bld) [Entitic vol] 9.4000 fL Normal 6.3-10.7 fL [facility] Other Platelets (Bld) [#/Vol] 223 10*3/uL Normal 150-450 10*3/uL [facility] Other RBC (Bld) [#/Vol] 3.5003887852 10*6/uL Normal 3. 60-5.00 10*6/uL [facility] Other WBC (Bld) [#/Vol] 6.673632256 10*3/uL Normal 3.8 -11.6 10*3/uL [facility] Other Complete Blood Count Auto Diff 6.6 10*3/uL Normal 4.5-11.0 10*3/uL [facility] Other Complete Blood Count Auto Diff 33.6 g/dL Normal 32.0-35.0 g/dL [facility] Other Complete Blood Count Auto Diff 0.1 % Normal 0-0.5 % [facility] Other Erythrocyte Sedimentation Ra amy 02-22-2022 ESR (Bld) [Velocity] 28 mm/h Normal 0-29 [employer] Other VASC LAB Carotid Artery Dupl ex Ultrasoundon 02-21-2022 US.doppler Carotid arteries [employer] [address] [place] Work Phone: COVID Quick Testingon 2021 Result Positive [facility] Other Falls Screening (Age 18+)on 12-26-2021 Fall risk assessment a) No falls within the last year [employer] DO Work Phone: Office Visit (Cardiology)on 12-26-2021 Follow-up visit Diagnoses/Problems Assessed Essential hypertension (401.9) (I10) Patient Instructions By signing my name below, I, Sherin Mendez Lpn,Scribe, attest that this documentation has been [...] MG Oral Tablet Delayed ReleaseTAKE 1 TABLET -- Calcium 600 MG TABSTAKE 1 TABLET DAILY. Carvedilol 6.25 MG Oral TabletTAKE 1 TABLET TWICE DAILY WITH MEALS. Levothyroxine Sodium 100 MCG Oral TabletTAKE 1 TABLET DAILY. Losartan Potassium-HCTZ 100-12.5 MG Oral TabletTAKE 1 TABLET DAILY. Multi Vitamin Oral TabletTAKE 1 TABLET DAILY. [place] 3 500 CAPSTAKE 1 CAPSULE Daily predniSONE 5 MG Oral Llzxae5XW 7.5MG BY MOUTH ONE DAILY ALTERNATING EVERY OTHER DAY Allergies Medication amoxicillin Hives;; Recorded By: Kayla Orr; 10/17/2021 10:50:34 AM Dilantin CAPS Rash; Recorded By: Kayla Orr; 10/17/2021 10:50:34 AM Fosamax eye pain; Recorded By: Kayla Orr; 10/17/2021 10:50:34 AM Depakote ER TB24 Recorded By: Kayla Orr; 10/17/2021 10:50:34 AM Vitals Vital Signs Recorded: 26Dec2021 11:04AMRecorded: [id number] 11:00AM Heart Rate56, R Kqjvra94, R Radial Ylwqcfjk740, LUE, Apvfabu725, RUE Xgfwgvnjo02, LUE, Rynughq27, RUE Height5 ft 2 in5 ft 2 in Deairi770 lb 143 lb BMI Safesbtvuh62.16 kg/m226.16 kg/m2 BSA Calculated1.661.66 Falls Screening (Age 18+)a) No falls within the last year Signatures Electronically signed by : Shy Wolf MD; Dec 26 2021 4:02PM EST (Author) Normal [facility] Tobacco Screening.on 022 Adult depression screening assessment No [facility] Work Phone: Fall risk assessment a) No falls within the last year [facility] Work Phone: Tobacco use status CPHS b) No [facility] Work Phone: Vital Signs Date Time Vital Sign Value 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 Facility 07-04-2023 11:15-0500 Body height 157.48 cm Suhas Garrett Other [facility] Other 07-04-2023 11:15-0500 Body mass index (BMI) [Ratio] 28.53 kg/m2 Suhas Garrett Other [facility] Other 07-04-2023 11:15-0500 Body weight 70.76 kg Suhasraquel Mayoadan Other [facility] Other 07-04-2023 11:15-0500 Diastolic blood pressure 84 mm[Hg] Suhasraquel Garrett Other [facility] Other 07-04-2023 11:15-0500 Respiratory rate 20 /min Suhas Ugo Other [facility] Other 07-04-2023 11:15-0500 SaO2% (BldA) [Mass fraction] 99 % Suhasraquel Garrett Other [facility] Other 07-04-2023 11:15-0500 Systolic blood pressure 150 mm[Hg] Suhas Garrett Other [facility] Other 06-19-2023 11:09-0500 Body height 157.5 cm Shy Wolf MD Work Phone: [facility] 06-19-2023 11:09-0500 Body mass index (BMI) [Ratio] 27.98 kg/m2 Shy Wolf MD Work Phone: [facility] 06-19-2023 11:09-0500 Body weight 69.4 kg Shy Wolf MD Work Phone: [facility] 06-19-2023 11:09-0500 Diastolic blood pressure 76 mm[Hg] Shy Wolf MD Work Phone: [facility] 06-19-2023 11:09-0500 Heart rate 60 /min Shy Wolf MD Work Phone: [facility] 06-19-2023 11:09-0500 Systolic blood pressure 120 mm[Hg] Shy Wolf MD Work Phone: [facility] 05-30-2023 11:00-0500 Body height 157.48 cm Suhas Garrett Other [facility] Other 05-30-2023 11:00-0500 Body mass index (BMI) [Ratio] 27.8 kg/m2 Suhas Garrett Other [facility] Other 05-30-2023 11:00-0500 Body weight 68.95 kg Suhas Garrett Other [facility] Other 05-30-2023 11:00-0500 Diastolic blood pressure 80 mm[Hg] Suhas Garrett Other [facility] Other 05-30-2023 11:00-0500 Respiratory rate 18 /min Suhas Garrett Other [facility] Other 05-30-2023 11:00-0500 SaO2% (BldA) [Mass fraction] 96 % Suhas Garrett Other [facility] Other 05-30-2023 11:00-0500 Systolic blood pressure 122 mm[Hg] Suhas Garrett Other [facility] Other 02-28-2023 10:30-0400 Body height 157.48 cm Suhas Garrett Other [facility] Other 02-28-2023 10:30-0400 Body mass index (BMI) [Ratio] 27.98 kg/m2 Suhas Garrett Other [facility] Other 02-28-2023 10:30-0400 Body weight 69.4 kg Suhas Garrett Other [facility] Other 02-28-2023 10:30-0400 Diastolic blood pressure 76 mm[Hg] Suhas Gaeladan Other [facility] Other 02-28-2023 10:30-0400 Respiratory rate 16 /min Suhas Garrett Other [facility] Other 02-28-2023 10:30-0400 SaO2% (BldA) [Mass fraction] 91 % Suhsa Ugo Other [facility] Other 02-28-2023 10:30-0400 Systolic blood pressure 134 mm[Hg] Suhas Garrett Other [facility] Other 12-24-2022 11:32-0400 Body height 157.48 cm Suhasraquel Garrett Work Phone: [facility] [employer] [address] DO Work Phone: 12-24-2022 11:32-0400 Body mass index (BMI) [Ratio] 27.07 kg/m2 Suhasraquel Garrett Work Phone: [facility] [employer] [address] DO Work Phone: 12-24-2022 11:32-0400 Body surface area Derived from formula 1.68 m2 Suhas Dalton Garrett Work Phone: [facility] [employer] DO Work Phone: 12-24-2022 11:32-0400 Body weight 67.13 kg Suhas Mayoadan Work Phone: [facility] [employer] 250 DO Work Phone: 12-24-2022 11:32-0400 Diastolic blood pressure 76 mm[Hg] Suhas Mayoadan Work Phone: [facility] [employer] [address] DO Work Phone: 12-24-2022 11:32-0400 Heart rate 68 /min Suhasraquel Garrett Work Phone: [facility] [place] 250 DO Work Phone: 12-24-2022 11:32-0400 Systolic blood pressure 118 mm[Hg] Suhasraquel Garrett Work Phone: [facility] [employer] [address] DO Work Phone: 12-06-2022 10:30-0400 Body height 157.48 cm Suhas Garrett Other [facility] Other 12-06-2022 10:30-0400 Body mass index (BMI) [Ratio] 27.98 kg/m2 Suhas Garrett Other [facility] Other 12-06-2022 10:30-0400 Body weight 69.4 kg Suhas Garrett Other [facility] Other 12-06-2022 10:30-0400 Diastolic blood pressure 70 mm[Hg] Suhas Garrett Other [facility] Other 12-06-2022 10:30-0400 Respiratory rate 16 /min Suhas Garrett Other [facility] Other 12-06-2022 10:30-0400 SaO2% (BldA) [Mass fraction] 98 % Suhas Garrett Other [facility] Other 12-06-2022 10:30-0400 Systolic blood pressure 146 mm[Hg] Suhas Garrett Other [facility] Other 09-20-2022 11:45-0400 Body height 157.48 cm Suhasraquel Mayoadan Other [facility] Other 09-20-2022 11:45-0400 Body mass index (BMI) [Ratio] 26.34 kg/m2 Suhas Ugo Other [facility] Other 09-20-2022 11:45-0400 Body weight 65.32 kg Suhas Ugo Other [facility] Other 09-20-2022 11:45-0400 Diastolic blood pressure 70 mm[Hg] Suhas Garrett Other [facility] Other 09-20-2022 11:45-0400 Respiratory rate 16 /min Suhas Garrett Other [facility] Other 09-20-2022 11:45-0400 SaO2% (BldA) [Mass fraction] 98 % Suhas Garrett Other [facility] Other 09-20-2022 11:45-0400 Systolic blood pressure 130 mm[Hg] Suhas Garrett Other [facility] Other 07-22-2022 11:30-0500 Body height 157.48 cm Suhas Garrett Other [facility] Other 07-22-2022 11:30-0500 Body mass index (BMI) [Ratio] 26.85 kg/m2 Suhas Garrett Other [facility] Other 07-22-2022 11:30-0500 Body weight 66.59 kg Suhas Garrett Other [facility] Other 07-22-2022 11:30-0500 Diastolic blood pressure 70 mm[Hg] Suhasraquel Mayoadan Other [facility] Other 07-22-2022 11:30-0500 Respiratory rate 16 /min Suhasraquel Mayoadan Other [facility] Other 07-22-2022 11:30-0500 SaO2% (BldA) [Mass fraction] 98 % Suhasraquel Mayoadan Other [facility] Other 07-22-2022 11:30-0500 Systolic blood pressure 122 mm[Hg] Suhas Gaels Other [facility] Other 04-17-2022 11:45-0500 Body height 157.48 cm Suhasraquel Mayoadan Other [facility] Other 04-17-2022 11:45-0500 Body mass index (BMI) [Ratio] 26.88 kg/m2 Suhasraquel Mayoadan Other [facility] Other 04-17-2022 11:45-0500 Body weight 66.68 kg Suhasraquel Garrett Other [facility] Other 04-17-2022 11:45-0500 Diastolic blood pressure 72 mm[Hg] Suhas Ugo Other [facility] Other 04-17-2022 11:45-0500 Respiratory rate 16 /min Suhas Ugo Other [facility] Other 04-17-2022 11:45-0500 SaO2% (BldA) [Mass fraction] 99 % Suhas Garrett Other [facility] Other 04-17-2022 11:45-0500 Systolic blood pressure 138 mm[Hg] Suhas Garrett Other [facility] Other 02-22-2022 10:15-0400 Body height 157.48 cm Suhas Garrett Other [facility] Other 02-22-2022 10:15-0400 Body mass index (BMI) [Ratio] 27.07 kg/m2 Suhas Garrett Other [facility] Other 02-22-2022 10:15-0400 Body weight 67.13 kg Suhas Garrett Other [facility] Other 02-22-2022 10:15-0400 Diastolic blood pressure 70 mm[Hg] Suhas Garrett Other [facility] Other 02-22-2022 10:15-0400 Respiratory rate 16 /min Suhas Garrett Other [facility] Other 02-22-2022 10:15-0400 SaO2% (BldA) [Mass fraction] 97 % Suhas Garrett Other [facility] Other 02-22-2022 10:15-0400 Systolic blood pressure 122 mm[Hg] Suhas Garrett Other [facility] Other 02-21-2022 10:45-0400 70 1 Suhas Garrett Work Phone: [facility] [address] [place] Work Phone: Comment on above: [id number] 02-14-2022 15:45-0400 Body height 157.48 cm Suhas Garrett Other [facility] Other 02-14-2022 15:45-0400 Body mass index (BMI) [Ratio] 26.7 kg/m2 Suhas Garrett Other [facility] Other 02-14-2022 15:45-0400 Body weight 66.23 kg Suhas Garrett Other [facility] Other 02-14-2022 15:45-0400 Diastolic blood pressure 72 mm[Hg] Suhas Garrett Other [facility] Other 02-14-2022 15:45-0400 Respiratory rate 16 /min Suhas Garrett Other [facility] Other 02-14-2022 15:45-0400 SaO2% (BldA) [Mass fraction] 96 % Suhas Garrett Other [facility] Other 02-14-2022 15:45-0400 Systolic blood pressure 132 mm[Hg] Suhas Garrett Other [facility] Other 12-26-2021 11:04-0400 Body height 157.48 cm Suhas Garrett Work Phone: [employer] DO Work Phone: 12-26-2021 11:04-0400 Body mass index (BMI) [Ratio] 26.16 kg/m2 Suhas Garrett Work Phone: [employer] DO Work Phone: 12-26-2021 11:04-0400 Body surface area Derived from formula 1.66 m2 Suhas Garrett Work Phone: [facility] 250 DO Work Phone: 12-26-2021 11:04-0400 Body weight 64.86 kg Suhas P Gaels Work Phone: [facility] 250 DO Work Phone: 12-26-2021 11:04-0400 Diastolic blood pressure 68 mm[Hg] Suhas P Kuns Work Phone: [facility] 250 DO Work Phone: 12-26-2021 11:04-0400 Heart rate 56 /min Suhas P Gaels Work Phone: [facility] 250 DO Work Phone: 12-26-2021 11:04-0400 Systolic blood pressure 126 mm[Hg] Suhas P Kuns Work Phone: [facility] 250 DO Work Phone: 12-26-2021 11:00-0400 Diastolic blood pressure 70 mm[Hg] Suhas P Gaels Work Phone: [facility] 250 DO Work Phone: 12-26-2021 11:00-0400 Systolic blood pressure 130 mm[Hg] Suhas P Gaels Work Phone: [facility] DO Work Phone: 12-13-2021 11:39-0400 Diastolic blood pressure 80 mm[Hg] Suhas P Gaels Work Phone: [facility] Work Phone: 12-13-2021 11:39-0400 Systolic blood pressure 170 mm[Hg] Suhas P Kuns Work Phone: [facility] Work Phone: 12-13-2021 11:22-0400 Diastolic blood pressure 80 mm[Hg] Suhas P Kuns Work Phone: [facility] Work Phone: 12-13-2021 11:22-0400 Systolic blood pressure 158 mm[Hg] Suhas Dalton Garrett Work Phone: [facility] Work Phone: 12-13-2021 11:17-0400 Body height 157.48 cm Suhas Dalton Garrett Work Phone: [facility] Work Phone: 12-13-2021 11:17-0400 Body mass index (BMI) [Ratio] 26.52 kg/m2 Suhas Dalton Garrett Work Phone: [facility] Work Phone: 12-13-2021 11:17-0400 Body surface area Derived from formula 1.67 m2 Suhas Dalton Garrett Work Phone: [facility] Work Phone: 12-13-2021 11:17-0400 Body weight 65.77 kg Suhas Dalton Garrett Work Phone: [facility] Work Phone: 12-13-2021 11:17-0400 Diastolic blood pressure 80 mm[Hg] Suhas Dalton Garrett Work Phone: [facility] Work Phone: 12-13-2021 11:17-0400 Heart rate 60 /min Suhas Dalton Gaeladan Work Phone: [facility] Work Phone: 12-13-2021 11:17-0400 Systolic blood pressure 160 mm[Hg] Suhas Dalton Gaeladan Work Phone: [facility] Work Phone: 10-01-2021 13:30-0400 Body height 157.48 cm Suhas Garrett Other [facility] [employer] Other 10-01-2021 13:30-0400 Body mass index (BMI) [Ratio] 26.34 kg/m2 Suhas Garrett Other [facility] Other 10-01-2021 13:30-0400 Body weight 65.32 kg Suhasraquel Mayoadan Other [facility] Other 10-01-2021 13:30-0400 Diastolic blood pressure 72 mm[Hg] Suhas Garrett Other [facility] Other 10-01-2021 13:30-0400 Respiratory rate 18 /min Suhas Garrett Other [facility] Other 10-01-2021 13:30-0400 SaO2% (BldA) [Mass fraction] 99 % Suhas Garrett Other [facility] Other 10-01-2021 13:30-0400 Systolic blood pressure 130 mm[Hg] Suhas Garrett Other [facility] Other 08-02-2021 13:30-0500 Body height 157.48 cm Suhas Garrett Other [facility] Other 08-02-2021 13:30-0500 Body mass index (BMI) [Ratio] 26.52 kg/m2 Suhas Garrett Other [facility] Other 08-02-2021 13:30-0500 Body weight 65.77 kg Suhas Garrett Other [facility] Other 08-02-2021 13:30-0500 Diastolic blood pressure 70 mm[Hg] Suhas Garrett Other [facility] Other 08-02-2021 13:30-0500 Respiratory rate 16 /min Suhas Garrett Other [facility] Other 08-02-2021 13:30-0500 SaO2% (BldA) [Mass fraction] 99 % Suhas Garrett Other [facility] Other 08-02-2021 13:30-0500 Systolic blood pressure 118 mm[Hg] Suhas Garrett Other [facility] Other 04-26-2021 13:30-0500 Body height 157.48 cm Suhas Garrett Other [facility] Other 04-26-2021 13:30-0500 Body mass index (BMI) [Ratio] 25.97 kg/m2 Suhas Garrett Other [facility] Other 04-26-2021 13:30-0500 Body weight 64.41 kg Suhas Garrett Other [facility] Other 04-26-2021 13:30-0500 Diastolic blood pressure 74 mm[Hg] Suhas Garrett Other [facility] Other 04-26-2021 13:30-0500 Respiratory rate 17 /min Suhas Garrett Other [facility] Other 04-26-2021 13:30-0500 SaO2% (BldA) [Mass fraction] 98 % Suhas Garrett Other [facility] Other 04-26-2021 13:30-0500 Systolic blood pressure 120 mm[Hg] Suhas Garrett Other [facility] Other Encounters Encounter Date Encounter Type Care Provider Facility Start: 10-20-2023 End: 10-21-2023 ambulatory Gloria Weston MD Facility:[facility] [place] [facility] Start: 10-14-2023 End: 10-14-2023 ambulatory Suhas Garrett Facility:[facility] Start: 09-29-2023 End: 09-30-2023 ambulatory Gloria Weston MD Facility:[facility] Start: 09-08-2023 End: 09-09-2023 ambulatory Gloria Weston MD Facility:[facility] Start: 09-03-2023 End: 09-03-2023 ambulatory Suhas Garrett Facility:[facility] Start: 08-25-2023 End: 08-26-2023 ambulatory Gloria Weston MD Facility:[facility] Start: 07-18-2023 End: 07-18-2023 ambulatory Suhas Garrett Other [facility] Other Start: 07-18-2023 Telephone encounter Suhas Garrett [facility] Start: 07-15-2023 End: 07-15-2023 ambulatory Suhas Garrett Other [facility] Other Start: 07-15-2023 Telephone encounter Suhas Garrett [facility] Start: 07-10-2023 End: 07-10-2023 ambulatory Suhas Garrett Other [facility] Other Start: 07-10-2023 Telephone encounter Suhas Garrett [facility] Start: 07-08-2023 End: 07-08-2023 ambulatory Suhas Garrett Facility:[facility] Start: 07-07-2023 End: 07-07-2023 ambulatory Suhas Garrett Other [facility] Other Start: 07-07-2023 Telephone encounter Suhas Garrett [facility] Start: 07-04-2023 End: 07-04-2023 ambulatory Suhas Garrett [facility] Other Start: 07-04-2023 Office outpatient vi [facility] minutes [facility] Start: 06-19-2023 Telephone encounter [facility]has [facility] Start: 06-19-2023 End: 06-19-2023 ambulatory SHY WOLF [facility] Other Start: 06-19-2023 End: 06-19-2023 Office outpatient visit 25 minutes Shy Wolf MD Work Phone: [facility] Comment on above: Aortic valve stenosi s, etiology of cardiac valve disease unspecified; Essential hypertension; Hyperlipidemia, unspecified hyperlipidemia type; Never smoked any substance Start: 05-30-2023 End: 05-30-2023 ambulatory Suhas Garrett Other [facility] Other Start: 05-30-2023 Office outpatient vi sit 25 minutes Suhas Garrett [facility] Start: 05-28-2023 End: 05-28-2023 ambulatory Suhas Garrett Other [facility] Other Start: 05-28-2023 Telephone encounter Suhas Garrett [facility] Start: 04-23-2023 End: 04-23-2023 ambulatory Suhas Garrett Other [facility] Other Start: 04-23-2023 Telephone encounter Suhas Garrett [facility] Start: 04-18-2023 End: 04-18-2023 ambulatory Suhas Garrett Other [facility] Other Start: 04-18-2023 Telephone encounter Suhas Garrett [facility] Start: 03-02-2023 Chart Update Suhas Garrett Work Phone: [facility] 250 DO Work Phone: Start: 02-28-2023 End: 02-28-2023 ambulatory Suhas Garrett Other [facility] Other Start: 02-28-2023 Office outpatient vi sit 15 minutes Suhas Garrett [facility] Start: 02-26-[address] Suhas Garrett Facility:44 Start: 01-27-2023 End: 01-27-2023 ambulatory Suhas Garrett Other [facility] Other Start: 01-27-2023 Telephone encounter Suhas Garrett [facility] Start: 12-24-2022 Office outpatient vi sit 25 minutes Suhas Garrett Work Phone: [facility] [address] DO Work Phone: Start: 12-24-[address] Shy garner Wolf Facility: Start: 12-06-2022 End: 12-06-2022 ambulatory Suhas Garrett Other [facility] Other Start: 12-06-2022 Office outpatient vi sit 15 minutes Suhas Garrett [facility] Start: 09-20-2022 End: 09-20-2022 ambulatory Suhas Garrett Other [facility] Other Start: 09-20-2022 Office outpatient vi sit 15 minutes Suhas Garrett [facility] Start: 08-14-2022 End: 08-14-2022 ambulatory Suhas Garrett Other [facility] Other Start: 08-14-2022 Telephone encounter Suhas Garrett [facility] Start: 07-22-2022 End: 07-22-2022 ambulatory Suhas Garrett Other [facility] Other Start: 07-22-2022 Office outpatient vi sit 15 minutes Suhas Garrett [facility] Start: 04-17-2022 End: 04-17-2022 ambulatory Suhas Garrett Other [facility] Other Start: 04-17-2022 Office outpatient vi sit 15 minutes Suhas Garrett [facility] Start: 04-10-2022 End: 04-10-2022 ambulatory Suhas Garrett Other [employer] Other Start: 04-10-2022 Telephone encounter Suhas Garrett [facility] [place] Start: 04-03-2022 End: 04-03-2022 ambulatory Suhas Garrett Other [employer] Other Start: 04-03-2022 Telephone encounter Suhas Garrett [facility] Medicine [facility] Start: 04-02-2022 End: 04-02-2022 ambulatory Suhas Garrett Other [employer] Other Start: 04-02-2022 Telephone encounter Suhas Garrett [facility] [place] Start: 02-26-2022 End: 02-26-2022 ambulatory Suhas Garrett Other [employer] Other Start: 02-26-2022 Telephone encounter Suhas Garrett [facility] [place] Start: 02-25-2022 End: 02-25-2022 ambulatory Suhas Garrett Other [employer] Other Start: 02-25-2022 Telephone encounter Suhas Garrett [facility] [place] Start: 02-22-2022 End: 02-22-2022 ambulatory Suhas Garrett Other [employer] Other Start: 02-22-2022 Office outpatient vi sit 25 minutes Suhas Garrett [facility] [place] Start: 02-21-2022 Patient encounter procedure Suhas Garrett Work Phone: [facility] [address] [place] Work Phone: Start: 02-20-2022 End: 02-21-2022 ambulatory MAYO CARBAJAL Facility: Start: 02-14-2022 End: 02-14-2022 ambulatory Suhas Garrett Other [employer] Other Start: 02-14-2022 Office outpatient vi sit 25 minutes Suhas Garrett [facility] [place] Start: 01-11-2022 End: 01-11-2022 ambulatory Suhas Garrett Other [facility] [employer] Other Start: 01-11-2022 Nursing evaluation o f patient and report Suhas Garrett [facility] [place] Start: 01-11-2022 Telephone encounter Suhas Garrett [facility] [place] Start: 12-26-2021 Office outpatient vi sit 10 minutes Suhas Garrett Work Phone: [facility] [address] [place] Work Phone: Start: 12-26-[address] Suhas Garrett Facility: Start: 12-20-2021 End: 12-20-2021 ambulatory Suhas Garrett Other [facility] [employer] Other Start: 12-20-2021 Telephone encounter Suhas Garrett [facility] Family [facility]emat[facility] Start: 12-13-2021 Office outpatient vi sit 25 minutes Suhas Garrett Work Phone: [facility] Work Phone: Start: 11-02-2021 End: 11-02-2021 ambulatory Suhas Garrett Other [place] [employer] Other Start: 11-02-2021 Telephone encounter Suhas Garrett [facility] [place] Start: 10-01-2021 End: 10-01-2021 ambulatory Suhas Garrett Other [employer] Other Start: 10-01-2021 Office outpatient vi sit 15 minutes Suhas Garrett [facility] [place] Start: 09-10-2021 End: 09-10-2021 ambulatory Suhas Garrett Other [employer] Other Start: 09-10-2021 Telephone encounter Suhas Garrett [facility] [place] Start: 08-20-2021 End: 08-20-2021 ambulatory Suhas Garrett Other [employer] Other Start: 08-20-2021 Telephone encounter Suhas Garrett [facility] [place] Start: 08-02-2021 End: 08-02-2021 ambulatory Suhas Garrett Other [employer] Other Start: 08-02-2021 Office outpatient vi sit 15 minutes Suhas Garrett [facility] [place] Start: 07-25-2021 End: 07-25-2021 ambulatory Suhas Garrett Other [employer] Other Start: 07-25-2021 Telephone encounter Suhas Garrett [facility] [place] Start: 05-08-2021 End: 05-08-2021 ambulatory Suhas Garrett Other [employer] Other Start: 05-08-2021 Telephone encounter Suhas Garrett [facility] [place] Start: 04-26-2021 End: 04-26-2021 ambulatory Suhas Garrett Other [employer] Other Start: 04-26-2021 Office outpatient vi sit 25 minutes Suhas Garrett [facility] [place] Procedures Date Procedure Procedure Detail 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 Start: 02-26-2023 Echocardiography Suhas Garrett Work Phone: Start: 02-21-2022 Echocardiography Suhas Garrett Work Phone: Appendectomy Suhas Garrett Work Phone: Cholecystectomy Suhas Garrett Work Phone: Operation on ovary Suhas anderson Work Phone: Thyroidectomy Suhas Garrett Work Phone: Total colonoscopy Suhas Hoffman Viktor ns Work Phone: Plan of Treatment Date Care Activity Detail Author Start: 05-12-2028 DTaP/Tdap/Td Vaccine s (2 - Td or Tdap) DTaP/Tdap/Td Vaccines (2 - Td or Tdap) [facility] Start: 03-16-2024 End: 03-16-2024 Patient encounter procedure 03/16/2024 11:20 AM EDT Office Visit [facility] [address] [facility] [address] [place] [address] Shy Wolf MD [address] [place] [address] [facility] Start: 02-11-2024 End: 02-11-2024 Patient encounter procedure 02/11/2024 12:30 PM EDT Appointment [facility] [address] [facility] [address] [place] [address] [facility] Start: 02-08-2024 End: 06-19-2025 [facility] Transthoracic Transthoracic Echo (TTE) Complete Echocardiography Routine Aortic valve stenosis, etiology of cardiac valve disease unspecified Expected: 02/08/2024 (Approximate), Expires: 06/19/2025 [facility] Service Area Work Phone: Comment on above: Expected: 02/08/2024 (Approximate), Expires: 06/19/2025 Start: 06-19-2023 FUV, Provider: Shy Wolf, Status: Pen, Time: 11:00 AM FUV, Provider: Shy Wolf, Status: Pen, Time: 11:00 AM [facility] [address] DO Work Phone: Start: 05-28-2023 COVID-19 Vaccine (5 - Moderna series) COVID-19 Vaccine (5 - Moderna series) [facility] Start: 02-26-2023 ECHO, Provider: SAMUEL [facility] ULTRASOUND 01,[id number], Status: Pen, Time: 10:45 AM ECHO, Provider: SAMUEL [facility] ULTRASOUND 01,[id number], Status: Pen, Time: 10:45 AM [facility] [address] DO Work Phone: Start: 12-24-2022 FUV, Provider: hSy Wolf, Status: Pen, Time: 11:20 AM FUV, Provider: Shy Wolf, Status: Pen, Time: 11:20 AM [facility] Work Phone: Start: 02-21-2022 CAROTID, Provider: SAMUEL [facility]VI ULTRASOUND 01,[id number], Status: Pen, Time: 12:30 PM CAROTID, Provider: SAMUEL [facility] ULTRASOUND 01,[id number], Status: Pen, Time: 12:30 PM [facility] Work Phone: Start: 02-21-2022 ECHO, Provider: SAMUEL [facility]VI ULTRASOUND 01,[id number], Status: Pen, Time: 10:45 AM ECHO, Provider: SAMUEL [facility]VI ULTRASOUND 01,[id number], Status: Pen, Time: 10:45 AM [facility] Work Phone: Start: 01-17-2022 CAROTID, Provider: SAMUEL HHVI ULTRASOUND 01,[id number], Status: Pen, Time: 2:30 PM CAROTID, Provider: SAMUEL [facility]VI ULTRASOUND 01,[id number], Status: Pen, Time: 2:30 PM [facility] Work Phone: Start: 01-17-2022 ECHO, Provider: SAMUEL [facility] ULTRASOUND 01,[id number], Status: Pen, Time: 1:30 PM ECHO, Provider: SAMUEL [facility]VI ULTRASOUND 01,[id number], Status: Pen, Time: 1:30 PM [facility] Work Phone: Start: 12-26-2021 NURSEVST, Provider: MAGDA DANIEL ODD SHOE EXAMINER 1,[id number], Status: Pen, Time: 11:00 AM NURSEVST, Provider: MAGDA DANIEL ODD SHOE EXAMINER 1,[id number], Status: Pen, Time: 11:00 AM [facility] Work Phone: Start: 1935 Lipid panel Lipid Panel [facility] Start: 1935 Medicare Annual Wellness Visit Medicare Annual Wellness Visit (AWV) [facility] Start: 1935 Thyroid stimulating hormone measurement TSH Level [facility] Immunizations Immunization Date Immunization Notes Care Provider Fa cili 04-17-2022 Moderna COVID-19 Bivalent 50 MCG/0.5ML Intramuscular Suspension Suhas Garrett Work Phone: [facility] [address] DO Work Phone: 03-21-2022 Fluad Quadrivalent 0 .5 ML Intramuscular Prefilled Syringe Suhas Garrett Work Phone: [facility] [address] DO Work Phone: 03-21-2022 influenza, seasonal, injectable Suhas Garrett Other [facility] [employer] Other 11-14-2021 Moderna COVID-19 Vaccine 100 MCG/0.5ML Intramuscular Suspension Suhas Garrett Work Phone: [facility] Work Phone: 04-05-2021 Moderna COVID-19 Vaccine 100 MCG/0.5ML Intramuscular Suspension Suhas P Gaels Work Phone: [facility] Work Phone: 03-19-2021 influenza, seasonal, injectable Suhas Garrett Other [facility] [employer] Other 08-08-2020 Moderna COVID-19 Vaccine 100 MCG/0.5ML Intramuscular Suspension Suhas P Gaels Work Phone: [facility] Work Phone: 07-11-2020 Moderna COVID-19 Vaccine 100 MCG/0.5ML Intramuscular Suspension Suhas Garrett Work Phone: [facility] Work Phone: 04-28-2020 pneumococcal polysaccharide vaccine, 23 valent Suhas Garrett Other [employer] Other 03-06-2020 Seasonal trivalent influenza vaccine, adjuvanted, preservative free Suhas Garrett Work Phone: [facility] Work Phone: 03-06-2020 influenza, seasonal, injectable Suhas Mayoadan Other [employer] Other 02-08-2020 influenza virus vaccine, unspecified formulation Suhas Garrett Work Phone: [facility] Work Phone: 02-08-2020 influenza, seasonal, injectable Suhas Garrett Other [employer] Other 05-04-2019 zoster vaccine recombinant Suhas Gaeladan Other [employer] Other 03-09-2019 influenza, high dose seasonal, preservative-free Suhas Mayoadan Work Phone: [facility] Work Phone: 03-04-2019 influenza, seasonal, injectable Suhas Mayoadan Other [employer] Other 02-04-2019 zoster vaccine recombinant Suhas Gaels Other [employer] Other 05-12-2018 tetanus toxoid, redu bety diphtheria toxoid, and acellular pertussis vaccine, adsorbed Suhas Garrett Other [employer] Other 03-16-2018 Seasonal trivalent influenza vaccine, adjuvanted, preservative free Shy Wolf MD Work Phone: [facility] Work Phone: 03-09-2018 influenza virus vaccine, unspecified formulation Suhas Garrett Work Phone: [facility] Work Phone: 04-09-2017 influenza virus vaccine, unspecified formulation Suhas P Ugo Work Phone: [facility] Work Phone: 03-28-2017 Seasonal trivalent influenza vaccine, adjuvanted, preservative free Suhas P Gaels Work Phone: [facility] Work Phone: 05-23-2016 pneumococcal conjuga te vaccine, 13 valent Suhas Kuns Other [facility] [employer] Other 04-01-2016 Seasonal trivalent influenza vaccine, adjuvanted, preservative free Suhas P Ugo Work Phone: [facility] Work Phone: 03-09-2016 influenza virus vaccine, unspecified formulation Suhas Dalton Garrett Work Phone: [facility] Work Phone: 03-09-2016 pneumococcal conjuga te vaccine, 13 valent Suhas P Kuns Work Phone: [facility] Work Phone: 04-07-2015 influenza, injectabl e, quadrivalent, contains preservative Suhas P Kuns Work Phone: [facility] Work Phone: 03-09-2015 influenza virus vaccine, unspecified formulation Suhas P Gaels Work Phone: [facility] Work Phone: 04-05-2014 influenza, seasonal, injectable, preservative free Suhas P Gaels Work Phone: [facility] Work Phone: 03-09-2014 influenza virus vaccine, whole virus Suhas Garrett Work Phone: [facility] Work Phone: 03-23-2013 influenza, seasonal, injectable Suhas Garrett Work Phone: [facility] Work Phone: 03-09-2013 influenza virus vaccine, unspecified formulation Suhas Garrett Work Phone: [facility] Work Phone: 04-14-2012 influenza, injectabl e, quadrivalent, contains preservative Suhas Garrett Other [facility] [employer] Other 06-09-2011 influenza virus vaccine, unspecified formulation Suhas Garrett Work Phone: [facility] Work Phone: 06-09-2010 influenza virus vaccine, unspecified formulation Suhas Garrett Work Phone: [facility] Work Phone: 06-09-2009 influenza virus vaccine, unspecified formulation Suhas Garrett Work Phone: [facility] Work Phone: 05-30-2009 novel [id number], preservative-free, injectable Suhas Garrett Work Phone: [facility] Work Phone: 10-19-2007 varicella virus vaccine Belkys Garrett Work Phone: [facility] Work Phone: 06-09-2006 pneumococcal polysaccharide vaccine, 23 valent Suhas Garertt Work Phone: [facility] Work Phone: Payers Date Payer Category Payer Self-pay 2022 Private Health Insurance [id number] 2001 Medicare MEDICARE MEDICAR E RAILROAD [id number] 2001-Present [address] [place] [address] [id number] 2001 Unknown 1959 Medicare [id number] 1959 Private Health Insurance [id number] 1936 Unknown [id number] 1936 Unknown [id number] .356 1936 Unknown [id number] .356 1936 Unknown [id number] .[id number] 1936 Unknown [id number] .[id number] 1936 Unknown [id number] [id number] .196 1936 Unknown [id number] .196 1936 Unknown [id number] .196 1936 Unknown [id number] .196 Unknown [id number] .531 Unknown [id number] .531 Unknown [id number] .531 Unknown [id number] .531 Social History Date Type Detail Facility Unknown if ever smoked [employer] Other Start: 06-19-2023 Sex Assigned At N [facility] [employer] Other Start: 06-19-2023 Caffeine use Caffeine use [facility] Work Phone: Start: 06-19-2023 Tobacco smoking status NHIS Never smoked tobacco [facility] Work Phone: Start: 06-19-2023 Tobacco use and exposure Smokeless tobacco non-user [facility] Work Phone: Start: 1935 Sex Assigned At Not on file [facility] Work Phone: Start: 06-09-2023 End: 06-19-2023 Exposure to SARS-CoV-2 (event) Not sure [facility] Clinical Notes 02-15-2015 to 07-18-2023 Note Date & Type Note Facility 07-18-2023 Evaluation note Encounter Date Diagnosis Assessment Notes Jul, PMR (polymya lgia rheumati ca) (ICD-10 - M35.3) [facility] [employer] Other 02-06-2024 Evaluation note* Encounter Date Diagnosis Assessment Notes Treatment Notes Treatment Clinical Notes Jul, PMR (polymyalgia rheumatica) (ICD-10 - M35.3) [facility] [employer] Other 02-01-2024 Evaluation note* Encounter Date Diagnosis Assessment Notes Treatment Notes Treatment Clinical Notes Jul, Hypothyroidism (ICD-10 - E03.9) [facility] Other 01-29-2024 Evaluation note* Encounter Date Diagnosis Assessment Notes Treatment Notes Treatment Clinical Notes Jun, Hypothyroidism (ICD- 10 - E03.9) Jun, Hyperthyroidism (ICD-10 - E05.90) [facility] Other 01-26-2024 Evaluation note* Encounter Date Diagnosis [...] medications in combination with eachother. 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 [...] requires sooner she is welcome to call. [facility] Other 01-11-2024 Evaluation note* Encounter Date Diagnosis Assessment Notes Treatment Notes Treatment Clinical Notes Jun, PMR (polymyalgia rheumatica) (ICD-10 - M35.3) [facility] Other 01-11-2024 History of Present illness Narrative* [...] is being tapered gradually Shy Wolf MD, [facility] Review of Systems All other systems reviewed [...] of Shy Wolf MD. [facility] Work Phone: 1(128) 965-445501-11-2024 Instructions* Patient Instructions* Yevgeniy Cortez MA - [...] time of your visit. [facility] Work Phone: 1(933) 707-227412-22-2023 Evaluation note* Encounter Date Diagnosis Assessment Notes [...] recommend the patient get the RSV vaccine. [facility] Other 12-20-2023 Evaluation note* Encounter Date Diagnosis Assessment Notes Treatment Notes Treatment Clinical Notes May, Hypertension (ICD-10 - I10) May, Hypothyroidism (ICD-10 - E03.9) [facility] Other 11-10-2023 Evaluation note* Encounter Date Diagnosis Assessment Notes Treatment Notes Treatment Clinical Notes Apr, PMR (polymyalgia rheumatica) (ICD-10 - M35.3) [facility] Other 09-22-2023 Evaluation note* Encounter Date Diagnosis Assessment Notes Treatment Notes Treatment Clinical Notes Feb, PMR (polymyalgia rheumatica) (ICD-10 - M35.3) She was encouraged to take 2.5mg daily. Patient is agreeable. Feb, Hypertension (ICD-10 - I10) Blood pressure is satisfactory, she is to follow with cardiology as scheduled. [facility] Other 08-21-2023 Evaluation note* Encounter Date Diagnosis Assessment Notes Treatment Notes Treatment Clinical Notes Jan, Hypertension (ICD-10 - I10) [facility] Other 06-30-2023 Evaluation note* Encounter Date Diagnosis [...] would like to do. Patient is agreeable. [facility] Other 04-14-2023 Evaluation note* Encounter Date Diagnosis [...] tablets daily. We will continue to monitor. [facility] Other 03-08-2023 Evaluation note* Encounter Date Diagnosis Assessment Notes Treatment Notes Treatment Clinical Notes Aug, PMR (polymyalgia rheumatica) (ICD-10 - M35.3) [facility] Other 02-13-2023 Evaluation note* Encounter Date Diagnosis [...] states she has an upcoming appointment with rehab specialist and she will discuss making medication changes at that time. [facility] Other 11-09-2022 Evaluation note* Encounter Date Diagnosis [...] can cut Apr, Hyperlipidemia (ICD-10 - E78.5) [facility] Other 11-02-2022 Evaluation note* Encounter Date Diagnosis Assessment Notes Treatment Notes Treatment Clinical Notes Apr, PMR (polymyalgia rheumatica) (ICD-10 - M35.3) [facility] Other 10-26-2022 Evaluation note* Encounter Date Diagnosis Assessment Notes Treatment Notes Treatment Clinical Notes Mar, Lumbar back pain (ICD-10 - M54.50) [facility] Other 09-20-2022 Evaluation note* Encounter Date Diagnosis Assessment Notes Treatment Notes Treatment Clinical Notes Feb, Elevated liver function tests (ICD-10 - R79.89) [facility] Other 09-16-2022 Evaluation note* Encounter Date Diagnosis Assessment Notes Treatment Notes Treatment Clinical Notes Feb, Acute pain of left shoulder (ICD-10 - M25.512) [place] [facility] report reviewed from 02/20/22 . The [...] pain (ICD-10 - R10.13) The patient advised Cynthiana could be causing her GI upset , [...] month Boniva at her next office visit. [facility] Other 09-08-2022 Evaluation note* Encounter Date Diagnosis [...] (ICD-10 - M85.80) Noted on Lumbar x-ray. [facility] Other 08-05-2022 Evaluation note* Encounter Date Diagnosis Assessment Notes Treatment Notes Treatment Clinical Notes Jan, COVID-19 (ICD-10 - U07.1) [facility] Other 08-05-2022 Evaluation note* Encounter Date Diagnosis Assessment Notes Treatment Notes Treatment Clinical Notes Jan, Cough (ICD-10 - R05.9) In house covid test is positive. Treatment plan discussed in TE. [facility] Other 07-14-2022 Evaluation note* Encounter Date Diagnosis Assessment Notes Treatment Notes Treatment Clinical Notes Dec, PMR (polymyalgia rheumatica) (ICD-10 - M35.3) [facility] Other 05-27-2022 Evaluation note* Encounter Date Diagnosis Assessment Notes Treatment Notes Treatment Clinical Notes October, PMR (polymyalgia rheumatica) (ICD-10 - M35.3) [facility] Other 04-25-2022 Evaluation note* Encounter Date Diagnosis [...] The patient encourged to continue following with rehab specialist annually in December as scheduled. I did forward a copy of most current blood work results . [facility] Other 04-04-2022 Evaluation note* Encounter Date Diagnosis Assessment Notes Treatment Notes Treatment Clinical Notes Sep, PMR (polymyalgia rheumatica) (ICD-10 - M35.3) Sep, Hypertension (ICD-10 - I10) [facility] Other 02-24-2022 Evaluation note* Encounter Date Diagnosis [...] if needed. We will continue to montior. [facility] Other 02-16-2022 Evaluation note* Encounter Date Diagnosis Assessment Notes Treatment Notes Treatment Clinical Notes Jul, PMR (polymyalgia rheumatica) (ICD-10 - M35.3) [facility] Other 11-30-2021 Evaluation note* Encounter Date Diagnosis Assessment Notes Treatment Notes Treatment Clinical Notes Apr, PMR (polymyalgia rheumatica) (ICD-10 - M35.3) [facility] Other 11-18-2021 Evaluation note* Encounter Date Diagnosis [...] Hypothyroidism (ICD-10 - E03.9) Blood work ordered. [facility] Other [id number] History general Narrative - Reported* Type Description Date Medical History Shinsarah Medical History 02-15-15-mammogram-negativ e Medical History 01/20122496-yoidqfnotdl-trozyn, repea t in 3 yrs Medical History 03/2017- colonoscopy- normal Medical History f/u with cardiology [facility] Medical History ECHO 09/2016 Surgical History Appendectomy Surgical History Gallbladder Removal Surgical History Ovarian Cyst Removal Surgical History Coccyx repair Surgical History Cataracts Bilateral Eyes Surgical History thyroidectomy Dr. Forbes 10/14/2019 Hospitalization History Childbirth x5 Hospitalization History See Above [employer] Other Evaluation noteNo [employer]Nort [employer] Other Evaluation note* Diagnosis Aortic valve stenosis, etiology of cardiac valve disease unspecified Essential hypertension Unspecified essential hypertension Hyperlipidemia, unspecified hyperlipidemia type Never smoked any substance documented in this encounter [facility] Work Phone: Chief Complaint * [...] PMR (polymyalgia rhe umatica) (M35.3) Referral Organization [facility] Family Medicin e Hematite Referring Provider First Name Suhas Referring Provider Last Name Ugo Referring Provider Specialty Family Prac sukhjinder Referred Organization [facility] Referred Address [address] [place], [place],[address] Referred Provider Specialty Rheumatology Referral Priority Routine [...] disease unspecified Procedures Transthoracic Echo (TTE) Complete [place] ECHO TTHRC R-T 2D W/WOM-MODE COMPL SPEC&COLR D Shy Wolf MD [address] [place] [address], [address] [address] Referral ID Status Reason Start Date Expiration Date Visits Requested Visits Authorized Pending Review Perform Procedure 06/19/2023 06/18/2024 1 1 Specialty Diagnoses / Procedures Referred By Alberto jiménez Referred To Contact Cardiology Diagnoses Aortic valve stenosis, etiology of cardiac valve disease unspecified Procedures Follow Up In Cardiology Shy Wolf MD [address] [place] [address] 2, [address] [address] Shy Wolf MD [address] [place] [address] 2, [address] [address] Referral ID Status Reason Start Date Expiration Date V isits Requested Visits Authorized [id number] Authorized 06/19/2023 06/18/2024 1 1 Additional Source Comments REASON FOR VISIT (unrecogniz ed section and content) Reason Comments Follow-up 6m INFORMATION SOURCE (unrecogn ized section and content) DATE CREATED AUTHOR 03/06/2022 [facility] DATE CREATED AUTHOR AUTHOR'S ORGANIZ ATION 12/25/2022 [facility] DATE CREATED AUTHOR AUTHOR'S ORGANIZ ATION 12/25/2022 [employer] DATE CREATED AUTHOR AUTHOR'S ORGANIZ ATION 03/03/2023 [facility] DATE CREATED AUTHOR AUTHOR'S ORGANIZ ATION 06/22/2023 [facility] DATE CREATED AUTHOR AUTHOR'S ORGANIZ ATION 10/15/2023 [facility] DATE CREATED AUTHOR AUTHOR'S ORGANIZ ATION 10/25/2023 [facility] Care Teams (unrecognized sec tion and content) 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 [employer] [facility]. provides no warranty or guarantee of the accuracy or completeness of information in this document.
[2023-11-17 08:34] VITALS: BP 158/75; PULSE 75; TEMP 37; O2SAT 99
[2023-11-17] MEDS: LIDOCAINE HCL 2% PF 100 MG/5 ML VIAL INJ (09:10)
[2023-11-17] MEDS: BUPIVACAINE HCL 0.25% PF 25 MG/10 ML VIAL INJ (09:10)
[2023-11-17 09:11] VITALS: BP 162/78; BP 188/88; PULSE 60; PULSE 64; O2SAT 97; O2SAT 98
--- NOTE | 2023-11-17 09:13 | W.PM.PROCNOT ---
Date of procedure: 11/17/23 Pre-op diagnosis: Pain due to lumbar spondylosis without myelopathy Post-op diagnosis: same as pre-op Procedure: Procedure: Bilateral L4-5, L5-S1 medial branch block Medications: Bupivacaine 0.25% 6cc The patient was seen and examined in the preoperative holding area.? An informed consent was obtained and placed on the chart.? The patient was brought to the medical procedure unit and placed in the prone position.? A timeout was completed verifying correct patient, procedure site, positioning, plan, and special equipment.? Using aseptic technique, the needle was placed at left L4. Under direct fluoroscopic visualization a Quincke-tipped spinal needle was advanced to the junction of the superior articulating process with the transverse process at the designated medial branch segment.? Preceded by negative aspiration, the above-mentioned injectate was placed in 1 mL aliquots.? The procedure was repeated at left L5, S1.? The needle was removed and insertion site was covered. The same procedure, at the same levels, was completed on the right side. The patient was taken to the postprocedural recovery area and monitored for an appropriate length of time before found suitable for discharge in the company of a responsible adult. Anesthesia: Local Surgeon: Gloria Weston Pathology: none sent Condition: stable Disposition: no change
== END 2023-11-17 09:18 | disposition home or self-care (01) ==
LOC: SURGOUT 07:56
PROVIDERS: PCP Family Medicine; Visit Provider Anesthesiology
DX: M47.816 Spondylosis without myelopathy or radiculopathy, lumbar region (principal)
CPT/HCPCS: 64493; 64494

== ENCOUNTER 2023-11-19 10:31 | Outpatient (OUT) | payer MEDICARE, OTHER, SELFPAY ==
--- NOTE | 2023-11-19 10:56 | P.CN_ITS ---
Consult Note: HPI Data of Consult Patient: known to practice within the last 3 years Consult date: 09/08/23 Requesting Physician: Norma Jimenez NP Primary Care Provider: Suhas Arizmendi DO Consult Narrative Reason for consult: low back, bilateral lower extremity pain Narrative: 88yof who presents for assessment. Chronic low back pain aching 7/10 today, increasing to 10/10 worsened by all activities improved with heat and sitting. lumbar XR reviewed, which shows multilevel degeneration and facet arthropathy. continues in series of provider directed home exercises >6 weeks, without benefit. uses tylenol, advil, butrans patch, with some benefit. denies adverse med side effects. bilateral L4-5 L5-S1 medial branch block #1 with significant improvement, >80% improvement in pain and functional ability immediately after and days after. However bilateral L4-5 L5-S1 medial branch block #2 provided no improvement. cc:: CC: Norma Jimenez NP Review of Systems ROS Status of ROS 10 or more systems reviewed and unremark able except as noted in history and below PFSH PFSH Medical History Polymyalgia rheumatica ?M35.3 - Polymyalgia rheumatica (ICD-10) Hyperthyroidism ?E05.90 - Thyrotoxicosis, unspecified without thyrotoxic crisis or storm (ICD-10) Heart murmur ?R01.1 - Cardiac murmur, unspecified (ICD-10) HTN (hypertension) ?I10 - Essential (primary) hypertension (ICD-10) Surgical History 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 - Postprocedural hypothyroidism (ICD-10) Hx of cholecystectomy ?Z90.49 - Acquired absence of other specified parts of digestive tract (ICD- 10) History of ovarian cystectomy ?Z98.890 - Other specified postprocedural states (ICD-10) ?Z87.42 - Personal history of other diseases of the female genital tract (ICD-10) History of appendectomy ?Z90.49 - Acquired absence of other specified parts of digestive tract (ICD- 10) Meds Home Medications and Allergies Home Medications ?Medication ?Instructions ?Recorded ?Confirmed ?Type acetaminophen 650 mg 650 mg PO Q8H PRN pain 08/25/23 11/17/23 History tablet,extended release (8 Hour Pain Reliever) amlodipine 10 mg tablet (Norvasc) 10 mg PO DAILY 08/25/23 11/17/23 History aspirin 81 mg capsule 81 mg PO DAILY 08/25/23 11/17/23 History carvedilol 6.25 mg tablet 6.25 mg PO Q12H 08/25/23 11/17/23 History levothyroxine 100 mcg tablet 100 mcg PO DAILY 08/25/23 11/17/23 History losartan 100 1 tab PO DAILY 08/25/23 11/17/23 History mg-hydrochlorothiazide 12.5 mg tablet multivitamin (Daily Multi-Vitamin 1 tab PO DAILY 08/25/23 11/17/23 History tablet) omega 8-zyb-xrg-fish oil 1,000 mg 1 cap PO DAILY 08/25/23 11/17/23 History (120 mg-180 mg) capsule (Fish Oil) calcium carbonate (Calcium 600) 600 mg PO DAILY 09/29/23 11/17/23 History buprenorphine 5 mcg/hour weekly 1 patch transdermal Q7D 11/04/23 11/17/23 History transdermal patch (Butrans) prednisone 2.5 mg tablet mg 11/17/23 History Allergies Allergy/AdvReac Type Severity Reaction Status Date / Time amoxicillin Allergy Mild Rash Verified 11/17/23 08:42 divalproex sodium Allergy Unknown Verified 11/17/23 08:42 [From Depakote] hydrocodone Allergy Unknown Verified 11/17/23 08:42 phenytoin [From Dilantin] Allergy Unknown Verified 11/17/23 08:42 alendronate sodium AdvReac eye pain Verified 11/17/23 08:42 [From Fosamax] Exam Constitutional Documenting provider has reviewed patient's vital signs: yes Common normals: oriented x3, healthy appearing, alert and well nourished General appearance: anxious HENMT Common normals: normocephalic, hearing grossly normal bilaterally and moist oral mucous membranes Head and scalp: normocephalic Eye Common normals: PERRL Pupil: PERRL Neck & C-Spine Common normals: full ROM General: normal visual inspection Chest Common normals: inspection of chest normal Respiratory Common normals: normal respiratory effort, no retractions and no use of accessory muscles Back & Pelvis Lumbar spine/lower back: ROM limited, pain with ROM and straight leg raise negative bilaterally Sacroiliac joints: SI joint(s) abnormal Other: bilateral facet loading tenderness over bilateral L4-5 L5-S1 facets no radiculopathy on exam strength 5/5 in BLE bilateral SIJ positive marisela(patricks), gaenslens, thigh thrust, compression test Extremity Common normals: normal to inspection and full ROM Neuro Common normals: oriented x3, CN's II-XII intact bilaterally, moves all extremities, no focal motor deficits, no sensory deficits noted and deep tendon reflexes 2+ bilaterally Sensorium/orientation: alert Gait (neuro): assistive device used cane Motor exam: strength 5/5 throughout and no movement abnormalities noted Psych Common normals: mental status grossly normal, thought process normal, cooperative, affect normal, speech normal and activity/motor behavior normal Speech: normal speech Thought process: normal thought process Results Additional Findings Additional findings: If on a controlled substance or opioids, I have checked an [place] report on this patient and there are no aberrancies noted in the prescribing history.??If on a controlled substance or opioid a drug screen was completed and reviewed within the last year, and if there has not been a drug screen completed we ordered one today to monitor higher risk, state monitored pain medication use. As part of providing excellent, safe, comprehensive care, the following was completed at our patient's visit: 1. A medication reconciliation and review to ensure accurate knowledge of cur rent/active medications, including asking our patients to inform us about any [id number] medications or herbal remedies/nutritional supplements/alternative remedies. 2. A review to specifically ensure our patients have had annual screening for screening for depression, screening for tobacco use, and screening for unhealthy alcohol use. For concerning screenings had a discussion with the patient, provided patient education, and recommended follow-up with primary care provider when appropriate. If patient noted with a risk of falling, they received education on strength, gait, and balance training to prevent future risk of falling. Assessment and Plan Assessment and Plan (1) Sacroiliitis: Assessment and Plan: We discussed the risks and benefits of the procedure with the patient, and we are NOT planning on using sedation as outlined in the guidelines from Medicare u nless there is a documented reason that sedation would be strongly recommended.?? ?The procedure will be completed with fluoroscopic guidance.? (2) Lumbar stenosis with neurogenic claudication: (3) Lumbar spondylosis: Plan bilateral SIJ injection under fluoroscopy refill butrans 5 mcg/hr patch q7days recommend rheumatology consult due to moderate to severe whole body pain f/u after SIJ injection
== END 2023-11-19 10:32 | disposition home or self-care (01) ==
PROVIDERS: PCP Family Medicine; Visit Provider Nurse Practitioner
DX: M46.1 Sacroiliitis, not elsewhere classified (principal); M47.816 Spondylosis without myelopathy or radiculopathy, lumbar region; M48.062 Spinal stenosis, lumbar region with neurogenic claudication
CPT/HCPCS: G0463

== ENCOUNTER 2023-11-24 10:34 | Day surgery (SDC) | payer MEDICARE, OTHER, SELFPAY ==
[2023-11-24 11:07] VITALS: BP 158/72; PULSE 63; TEMP 36.9; O2SAT 100
[2023-11-24 11:24] VITALS: BP 188/86; PULSE 69; O2SAT 99
[2023-11-24] MEDS: BUPIVACAINE HCL 0.25% PF 25 MG/10 ML VIAL 5 ML INJ (11:25)
[2023-11-24] MEDS: TRIAMCINOLONE ACETONIDE 40 MG/ML VIAL INJ (11:25)
[2023-11-24] MEDS: LIDOCAINE HCL 2% 400 MG/20 ML MDV 15 ML INJ (11:26)
[2023-11-24] MEDS: IOHEXOL 240 MG/ML - 10 ML VIAL INJ (11:26)
[2023-11-24 11:27] VITALS: BP 186/77; PULSE 68; O2SAT 99
--- NOTE | 2023-11-24 11:28 | W.PM.PROCNOT ---
Date of procedure: 11/24/23 Pre-op diagnosis: Pain due to bilateral sacroiliitis Post-op diagnosis: same as pre-op Procedure: Procedure: Bilateral sacroiliac joint injection Medications: Bupivacaine 0.25% 3cc, kenalog 40mg x2 After informed consent was obtained, the patient was brought to the medical procedure unit and placed in the prone position, when a timeout was completed verifying correct patient, procedure, site, positioning, implant, and/or special equipment.? The skin overlying the area was prepped and draped in standard sterile fashion using alcohol.? A 25-gauge needle was inserted towards the left sacroiliac joint under direct fluoroscopic imaging.? Needle tip was advanced until the joint was encountered.? We instilled a total of 2 mL of solution.? The same procedure was then completed on the right side.? Postoperatively needles were removed.? The patient tolerated the procedure well without complication.? The patient reported reduction in pain symptoms postoperatively. Anesthesia: Local Surgeon: Gloria Weston Pathology: none sent Condition: stable Disposition: no change
== END 2023-11-24 11:36 | disposition home or self-care (01) ==
PROVIDERS: PCP Family Medicine; Visit Provider Anesthesiology
DX: M46.1 Sacroiliitis, not elsewhere classified (principal)
CPT/HCPCS: 27096; J0665; J3301; Q9966

== ENCOUNTER 2023-12-04 11:12 | Outpatient (OUT) | payer MEDICARE, OTHER, SELFPAY ==
--- NOTE | 2023-12-04 11:20 | P.CN_ITS ---
Consult Note: HPI Data of Consult Patient: known to practice within the last 3 years Consult date: 09/08/23 Requesting Physician: Norma Jimenez NP Primary Care Provider: Suhas Arizmendi DO Consult Narrative Reason for consult: low back, bilateral lower extremity pain Narrative: 88yof who presents for assessment. Chronic low back pain aching 1-2/10 today, increasing to 4/10 worsened by all activities improved with heat and sitting. lumbar XR reviewed, which shows multilevel degeneration and facet arthropathy. continues in series of provider directed home exercises >6 weeks, without benefit. uses tylenol, advil, butrans patch, with some benefit. denies adverse med side effects. patient recently underwent bilateral SIJ injection with 90% improvement in pain and functional ability ongoing. Patient has stopped butrans due to constipation, now on colace and linzess through PCP, has not noticed increase in pain. cc:: CC: Norma Jimenez NP Review of Systems ROS Status of ROS 10 or more systems reviewed and unremark able except as noted in history and below Musculoskeletal Reports: back pain, neck pain, extremity pain and joint pain PFSH PFSH Medical History Polymyalgia rheumatica ?M35.3 - Polymyalgia rheumatica (ICD-10) Hyperthyroidism ?E05.90 - Thyrotoxicosis, unspecified without thyrotoxic crisis or storm (ICD-10) Heart murmur ?R01.1 - Cardiac murmur, unspecified (ICD-10) HTN (hypertension) ?I10 - Essential (primary) hypertension (ICD-10) Surgical History 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 - Postprocedural hypothyroidism (ICD-10) Hx of cholecystectomy ?Z90.49 - Acquired absence of other specified parts of digestive tract (ICD- 10) History of ovarian cystectomy ?Z98.890 - Other specified postprocedural states (ICD-10) ?Z87.42 - Personal history of other diseases of the female genital tract (ICD-10) History of appendectomy ?Z90.49 - Acquired absence of other specified parts of digestive tract (ICD- 10) Meds Home Medications and Allergies Home Medications ?Medication ?Instructions ?Recorded ?Confirmed ?Type acetaminophen 650 mg 650 mg PO Q8H PRN pain 08/25/23 11/24/23 History tablet,extended release (8 Hour Pain Reliever) amlodipine 10 mg tablet (Norvasc) 10 mg PO DAILY 08/25/23 11/24/23 History aspirin 81 mg capsule 81 mg PO DAILY 08/25/23 11/24/23 History carvedilol 6.25 mg tablet 6.25 mg PO Q12H 08/25/23 11/24/23 History levothyroxine 100 mcg tablet 100 mcg PO DAILY 08/25/23 11/24/23 History losartan 100 1 tab PO DAILY 08/25/23 11/24/23 History mg-hydrochlorothiazide 12.5 mg tablet multivitamin (Daily Multi-Vitamin 1 tab PO DAILY 08/25/23 11/24/23 History tablet) omega 9-nmm-blc-fish oil 1,000 mg 1 cap PO DAILY 08/25/23 11/24/23 History (120 mg-180 mg) capsule (Fish Oil) calcium carbonate (Calcium 600) 600 mg PO DAILY 09/29/23 11/24/23 History prednisone 2.5 mg tablet mg 11/17/23 History buprenorphine 5 mcg/hour weekly 1 patch transdermal Q7D #4 ea 11/20/23 11/24/23 Rx transdermal patch (Butrans) Allergies Allergy/AdvReac Type Severity Reaction Status Date / Time amoxicillin Allergy Mild Rash Verified 11/24/23 11:09 divalproex sodium Allergy Unknown Verified 11/24/23 11:09 [From Depakote] hydrocodone Allergy Unknown Verified 11/24/23 11:09 phenytoin [From Dilantin] Allergy Unknown Verified 11/24/23 11:09 alendronate sodium AdvReac eye pain Verified 11/24/23 11:09 [From Fosamax] Exam Constitutional Documenting provider has reviewed patient's vital signs: yes Common normals: no apparent distress, oriented x3, healthy appearing, alert and well nourished General appearance: cooperative HENMT Common normals: normocephalic, hearing grossly normal bilaterally and moist oral mucous membranes Head and scalp: normocephalic Eye Common normals: PERRL Pupil: PERRL Neck & C-Spine Common normals: full ROM General: normal visual inspection Chest Common normals: inspection of chest normal Respiratory Common normals: normal respiratory effort, no retractions and no use of accessory muscles Back & Pelvis Lumbar spine/lower back: ROM limited, pain with ROM and straight leg raise negative bilaterally Sacroiliac joints: SI joints normal Other: bilateral facet loading tenderness over bilateral L4-5 L5-S1 facets no radiculopathy on exam strength 5/5 in BLE bilateral SIJ negative marisela(patricks), gaenslens, thigh thrust, compression test Extremity Common normals: normal to inspection and full ROM Neuro Common normals: oriented x3, CN's II-XII intact bilaterally, moves all extremities, no focal motor deficits, no sensory deficits noted and deep tendon reflexes 2+ bilaterally Sensorium/orientation: alert Gait (neuro): assistive device used cane Motor exam: strength 5/5 throughout and no movement abnormalities noted Psych Common normals: mental status grossly normal, thought process normal, cooperative, affect normal, speech normal and activity/motor behavior normal Speech: normal speech Thought process: normal thought process Results Additional Findings Additional findings: If on a controlled substance or opioids, I have checked an [place] report on this patient and there are no aberrancies noted in the prescribing history.??If on a controlled substance or opioid a drug screen was completed and reviewed within the last year, and if there has not been a drug screen completed we ordered one today to monitor higher risk, state monitored pain medication use. As part of providing excellent, safe, comprehensive care, the following was completed at our patient's visit: 1. A medication reconciliation and review to ensure accurate knowledge of current/active medications, including asking our patients to inform us about any tqpe-zqc-yknodfu medications or herbal remedies/nutritional supplements/alternative remedies. 2. A review to specifically ensure our patients have had annual screening for screening for depression, screening for tobacco use, and screening for unhealthy alcohol use. For concerning screenings had a discussion with the patient, provided patient education, and recommended follow-up with primary care provider when appropriate. If patient noted with a risk of falling, they received education on strength, gait, and balance training to prevent future risk of falling. Assessment and Plan Assessment and Plan (1) Sacroiliitis: Assessment and Plan: >80% improvement from bilateral SIJ injection ongoing (2) Generalized OA: (3) Polymyalgia rheumatica: (4) Lumbar stenosis with neurogenic claudication: (5) Lumbar spondylosis: (6) Cervicalgia: (7) Myalgia: (8) Osteoarthritis of shoulders, bilateral: (9) Cervical spondylosis: Plan patient has stopped butrans due to concerns of constipation and IBS. now on linzess and colace, continue f/u wth PCP. can consider restarting butrans 5mcg/hr q7days in the future if needed, pt to call continue tylenol arthritis and tizanidine PRN continue HEP as tolerated f/u 3 months, sooner if needed
== END 2023-12-04 11:13 | disposition home or self-care (01) ==
LOC: PM 11:13
PROVIDERS: PCP Family Medicine; Visit Provider Nurse Practitioner
DX: M46.1 Sacroiliitis, not elsewhere classified (principal); M19.90 Unspecified osteoarthritis, unspecified site; M35.3 Polymyalgia rheumatica; M48.062 Spinal stenosis, lumbar region with neurogenic claudication; M47.816 Spondylosis without myelopathy or radiculopathy, lumbar region; M54.2 Cervicalgia; M79.10 Myalgia, unspecified site; M19.012 Primary osteoarthritis, left shoulder; M19.011 Primary osteoarthritis, right shoulder; M47.812 Spondylosis without myelopathy or radiculopathy, cervical region
CPT/HCPCS: G0463

== ENCOUNTER 2024-02-23 14:43 | Outpatient (OUT) | payer MEDICARE, OTHER, SELFPAY ==
--- NOTE | 2024-02-23 15:19 | PM.CN ---
Consult Note: HPI Data of Consult Patient: known to practice within the last 3 years Consult date: 02/23/24 Requesting Physician: Norma Jimenez NP Primary Care Provider: Suhas Arizmendi DO Consult Narrative Reason for consult: neck, bilateral arm pain Narrative: 88yof who presents for assessment. worsening neck and bilateral upper extremity pain. cervical xr consistent with multilevel degenerative changes, but no advanced imaging available. continues in provider directed home exercise program >6 weeks, with no benefit. has tried tylenol and tramadol, without benefit. cc:: CC: Norma Jimenez NP Review of Systems ROS Status of ROS 10 or more systems reviewed and unremarkable except as noted in history and below PFSH [facility] Medical History Polymyalgia rheumatica ?M35.3 - Polymyalgia rheumatica (ICD-10) Hyperthyroidism ?E05.90 - Thyrotoxicosis, unspecified without thyrotoxic crisis or storm (ICD-10) Heart murmur ?R01.1 - Cardiac murmur, unspecified (ICD-10) HTN (hypertension) ?I10 - Essential (primary) hypertension (ICD-10) Surgical History 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 - Postprocedural hypothyroidism (ICD-10) Hx of cholecystectomy ?Z90.49 - Acquired absence of other specified parts of digestive tract (ICD-10) History of ovarian cystectomy ?Z98.890 - Other specified postprocedural states (ICD-10) ?Z87.42 - Personal history of other diseases of the female genital tract (ICD-10) History of appendectomy ?Z90.49 - Acquired absence of other specified parts of digestive tract (ICD-10) Meds Home Medications and Allergies Home Medications ?Medication ?Instructions ?Recorded ?Confirmed ?Type acetaminophen 650 mg 650 mg PO Q8H PRN pain 08/25/23 11/24/23 History tablet,extended release (8 Hour Pain Reliever) amlodipine 10 mg tablet (Norvasc) 10 mg PO DAILY 08/25/23 11/24/23 History aspirin 81 mg capsule 81 mg PO DAILY 08/25/23 11/24/23 History carvedilol 6.25 mg tablet 6.25 mg PO Q12H 08/25/23 11/24/23 History levothyroxine 100 mcg tablet 100 mcg PO DAILY 08/25/23 11/24/23 History losartan 100 1 tab PO DAILY 08/25/23 11/24/23 History mg-hydrochlorothiazide 12.5 mg tablet multivitamin (Daily Multi-Vitamin 1 tab PO DAILY 08/25/23 11/24/23 History tablet) omega 2-yqj-fbs-fish oil 1,000 mg 1 cap PO DAILY 08/25/23 11/24/23 History (120 mg-180 mg) capsule (Fish Oil) calcium carbonate (Calcium 600) 600 mg PO DAILY 09/29/23 11/24/23 History prednisone 2.5 mg tablet mg 11/17/23 History buprenorphine 5 mcg/hour weekly 1 patch transdermal Q7D #4 ea 11/20/23 11/24/23 Rx transdermal patch (Butrans) buprenorphine 5 mcg/hour weekly 1 patch transdermal Q7D #4 ea 12/08/23 Rx transdermal patch (Butrans) buprenorphine 7.5 mcg/hour weekly 1 patch transdermal Q7D #4 ea 12/17/23 Rx transdermal patch (Butrans) buprenorphine 7.5 mcg/hour weekly 1 patch transdermal Q7D #4 ea 01/12/24 Rx transdermal patch (Butrans) Allergies Allergy/AdvReac Type Severity Reaction Status Date / Time amoxicillin Allergy Mild Rash Verified 11/24/23 11:09 divalproex sodium Allergy Unknown Verified 11/24/23 11:09 [From Depakote] hydrocodone Allergy Unknown Verified 11/24/23 11:09 phenytoin [From Dilantin] Allergy Unknown Verified 11/24/23 11:09 alendronate sodium AdvReac eye pain Verified 11/24/23 11:09 [From Fosamax] Exam Narrative Exam Narrative: Psych-alert and oriented x 3.? Attentive and appropriate, constitutionally normal, displays normal mood and affect per situation.? There are no obvious deficits in memory, reasoning, or intellect.? Skin-no obvious rashes, bruising, or erythema noted to the patient's area of pain.? Extremities-upper extremities are warm with minimal edema and palpable pulses. Cervical- tenderness to palpation noted in the cervical spine and paraspinal musculature.? Pain is elicited with flexion, extension, and lateral rotation of the cervical spine.? Range of motion is diminished due to pain. Facet loading maneuvers are positive. Strength-unremarkable and within normal limits with the exception to the bilateral biceps, triceps. Sensory-no notable sensory deficits in the bilateral upper extremities to touch or pinprick with the exception to decreased sensation to the bilateral C5, 6, 7 dermatomal distribution.? Coordination remains intact.? Gait remains non-antalgic. Assessment and Plan Assessment and Plan (1) Cervical stenosis of spinal canal: (2) Cervical spondylosis: Plan 88yof who presents for assessment. failed conservative measures, as noted. imaging reviewed, as noted. given symptoms and imaging, would like her to undergo cervical mri without contrast. she is in agreement. meds reviewed. will have her trial percocet 5mg bid prn. follow up after imaging complete.
== END 2024-02-23 14:44 | disposition home or self-care (01) ==
PROVIDERS: PCP Family Medicine; Visit Provider Anesthesiology
DX: M48.02 Spinal stenosis, cervical region (principal); M47.812 Spondylosis without myelopathy or radiculopathy, cervical region
CPT/HCPCS: G0463

== ENCOUNTER 2024-03-03 12:47 | Outpatient (OUT) | payer MEDICARE, OTHER, SELFPAY ==
--- OUTSIDE RECORDS SUMMARY | 2024-03-03 12:53 | XMS_ITS | CCD ---
Author Organization [facility] Care Team Providers Care X Ray Operator Name Role Phone Suhas Garrett Unavailable Suhas [...] Dr. Suhas Liang Primary Care Unavaila ble Luciano, Dr. Shy Agosto Referring Radha vailable Ugo, Dr. Suhas Liang Primary Care Unavaila SHY Clancy Attending Unavail able Suhas Garrett DO Primary Care Provider [phone] Suhas Garrett Primary Care Unavailable Suhas Garrett Attending Unavailable Suhas Garrett Admitting Unavailable Suhas Garrett Attending Unavailable Suhas Garrett Admitting Unavailable Suhas Garrett Primary Care Unavailable Suhas Garrett Attending Unavailable Suhas Garrett Admitting Unavailable Suhas Garrett Primary Care Unavailable Suhas Garrett Attending Unavailable Suhas Garrett Admitting Unavailable Suhas Garrett Primary Care Unavailable SHY WOLF Attending Unavailable SUHAS GARRETT Primary Care Unavailable SHY WOLF Referring Unavailable SUHAS GARRETT Primary Care Unavailable Trista FRIEDMAN, Gloria Gautam Attending Unavailable Trista FRIEDMAN, Andrius Gautam Attending Unavailable Trista FRIEDMAN, Andrius Gautam Attending Unavailable Giedraitis , Gloria Gautam Attending Unavailable Giedraitis , Gloria Gautam Attending Unavailable Giedraitis , Gloria Gautam Attending Unavailable Giedraitis , Gloria Gautam Attending Unavailable Allergies Allergy Classification Reported Allergen(s) Allergy Type Date of Onset Reaction(s) Facility (20 sources) Alendronate; Translations: [Fosamax] Drug Allergy 3 Unknown, Other Hospitals 3 Repository (20 sources) Amoxicillin; Translations: [amoxicillin] Drug Allergy [address] [facility] Other (20 sources) Phenytoin; Translations: [Dilantin CAPS] Drug Allergy 3 [facility] [place] Other (20 sources) Valproate; Translations: [Depakote ER TB24] Drug Allergy [facility] Other (1 source) Alendronate Drug Allergy The [facility] Repository (1 source) Amoxicillin Drug Allergy [facility] Repository (1 source) Phenytoin Drug Allergy [facility] Repository (1 source) Valproate Drug Allergy [facility] Repository (20 sources) Acetaminophen / HYDROcodone Drug Allergy elevated liver enzymes [facility] Other (1 source) Alendronate Drug Allergy 3 [facility] (3 sources) HYDROcodone; Translations: [HYDROCODONE] Drug Allergy 4 [facility] Work Phone: (3 sources) Valproate; Translations: [VALPROIC ACID] Drug Allergy 3 [facility] Work Phone: (1 source) Acetaminophen Drug Allergy 4 [facility] Repository (1 source) Alendronate Drug Allergy 4 [facility] Repository (1 source) Amoxicillin Drug Allergy 4 [facility] Repository (1 source) HYDROcodone Drug Allergy 4 [facility] Repository (1 source) Phenytoin Drug Allergy [address] [place] [address] Repository (1 source) Valproate Drug Allergy [address] [place] [address] Repository Medications Current Medications Medication Drug Class(es) [...] tablet by mouth once daily. 0 Active Cla[place]on 3 1000 MG (20 sources) take 1 capsule by mouth once daily Cla[place]on 3 1000 MG 1 capsule with a [...] take 1 capsule by mouth once daily Clarendon-3 Fish Oil 1000 MG Oral Capsule TAKE [...] 0 Refills: 0 Ordered: 13-Dec-2021 DO Active Cla[place]on 3 500 CAPS (4 sources) Cla[place]on 3 500 CAPS TAKE 1 CAPSULE Daily [...] Coronary arteriosclerosis; 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 [place] coronary artery without angina pectoris] Onset: 09-03-2023 Chronic Disorders of lipid metabolism (20 sources) Hyperlipidemia; Translations: [Hyperlipidemia, unspecified] Onset: 04-26-2021 Resolved: 04-26-2021 Chronic Essential hypertension (20 sources) Hypertensive disorder; Translations: [Essential (primary) hypertension] Onset: 09-10-2021 Resolved: 02-14-2022 Chronic Heart valve disorders (19 sources) Aortic valve stenosis; Translations: [Aortic valve disorders] Onset: 02-26-2023 Chronic Heart valve disorders (20 sources) Heart murmur; Translations: [Cardiac murmur, unspecified] Onset: 10-01-2021 Resolved: 10-01-2021 Episodic Osteoporosis (1 source) Osteoporosis; Translations: [Age-related osteoporosis without current pathological fracture] Chronic Other aftercare (1 source) 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; Translations: [OTH TIRE BUSTER CURRENT DRUG THERAPY] Onset: 02-22-2022 Episodic Other [...] specified health status] Onset: 06-19-2023 06-19-2023 Episodic Spondylosis; intervertebral disc disorders; other [...] menopausal state Onset: 02-14-2022 Resolved: 02-14-2022 Episodic Residual codes; unclassified (2 sources) Other specified health status; Translations: [Other specified health status] Onset: 06-19-2023 Episodic Unclassified (7 sources) Never smoked tobacco; [...] Test Name Value Interpretation Reference Range Facility TRANSTHORACIC ECHO (TTE) COM PLETEon 02-11-2024 TRANSTHORACIC ECHO (TTE) COMPLETE [facility] [address], [address], [place] [address] TRANSTHORACIC ECHOCARDIOGRAM REPORT Patient Name: LAVONNE VILLATORO Reading Physician: [id number] Shy Wolf MD, [facility] Study Date: 02/11/2024 Ordering Provider: [id number] SHY WOLF MRN/PID: [id number] Fellow: Nurse: Date of /Age: 3 1935 / 88 years Deliverer Merchandise: LILIA Gender: F Additional Staff: Height: 157.48 cm Admit Date: Weight: 69.40 kg Admission Status: BSA / BMI: 1.71 m2 / 27.98 kg/m2 Department Location: [facility] Blood Pressure: 116 /76 mmHg Study Type: TRANSTHORACIC ECHO (TTE) COMPLETE Diagnosis/ICD: Nonrheumatic aortic (valve) stenosis-I35.0 Indication: HTN, Hyperlipidemia, 3/6 Systolic Murmur, Hypothryoid, Overweight CPT Codes: Echo Complete w Full Doppler-[id number] Study Detail: The following Echo studies were performed: 2D, M-Mode, Doppler and color flow. PHYSICIAN INTERPRETATION: Left Ventricle: The left ventricular systolic function is normal, with a visually estimated ejection fraction of 70%. There are [...] The aortic valve is trileaflet. There is severe aortic valve cusp calcification. The aortic valve dimensionless index is 0.22. There is no evidence of aortic valve regurgitation. The peak instantaneous gradient of the aortic valve is 52.4 mmHg. The mean gradient of the aortic valve is 26.0 mmHg. The peak velocity across the aortic valve measured 361 cm/s corresponding to a peak pressure gradient of 52 mmHg and a mean pressure gradient 26 mmHg. Aortic valve area measured 0.7 cm???. These parameters are consistent with severe aortic stenosis. Mitral Valve: The mitral valve is mildly thickened. There is no evidence of mitral valve regurgitation. Tricuspid Valve: The tricuspid valve is structurally normal. There is mild tricuspid regurgitation. Estimated RVSP 42 mmHg consistent with mild pulmonary hypertension. Pulmonic Valve: The pulmonic valve is structurally normal. There is no indication of pulmonic valve regurgitation. Pericardium: There is no pericardial effusion noted. Aorta: The aortic root is normal. Systemic Veins: The inferior vena cava appears to be of normal size. In comparison to the previous echocardiogram(s): When compared to study from 02/26/2023, no significant interval changes were seen. CONCLUSIONS: 1. The left ventricular systolic function is normal, with a visually estimated ejection fraction of 70%. 2. Spectral Doppler shows an impaired relaxation pattern of left ventricular diastolic filling. 3. There is normal right ventricular global systolic function. 4. Estimated RVSP 42 mmHg consistent with mild pulmonary hypertension. 5. Mild tricuspid regurgitation is visualized. 6. The peak velocity across the aortic valve measured 361 cm/s corresponding to a peak pressure gradient of 52 mmHg and a mean pressure gradient 26 mmHg. Aortic valve area measured 0.7 cm???. These parameters are consistent with severe aortic stenosis. 7. There is severe aortic valve cusp calcification. QUANTITATIVE DATA SUMMARY: 2D MEASUREMENTS: Normal Ranges: Ao Root d: 2.60 cm (2.0-3.7cm) LAs: 3.50 cm (2.7-4.0cm) RVIDd: 2.53 cm (0.9-3.6cm) IVSd: 1.01 cm (0.6-1.1cm) LVPWd: 0.80 cm (0.6-1.1cm) LVIDd: 4.05 cm (3.9-5.9cm) LVIDs: 2.43 cm LV Mass Index: 65.9 g/m2 LV % FS 40.0 % LV SYSTOLIC FUNCTION BY 2D PLANIMETRY (MOD): Normal Ranges: EF-A4C View: 67 % (>=55%) EF-A2C View: 61 % EF-Biplane: 66 % EF-Visual: 70 % LV EF Reported: 70 % LV DIASTOLIC FUNCTION: Normal Ranges: MV Peak E: 1.07 m/s (0.7-1.2 m/s) MV Peak A: 1.46 m/s (0.42-0.7 m/s) E/A Ratio: 0.73 (1.0-2.2) MV e' 0.069 m/s (>8.0) MV lateral e' 0.08 m/s MV medial e' 0.06 m/s E/e' Ratio: 15.56 (<8.0) MITRAL VALVE: Normal Ranges: MV Vmax: 1.43 m/s (<=1.3m/s) MV peak P.2 mmHg (<5mmHg) MV mean P.0 mmHg (<48mmHg) AORTIC VALVE: Normal Ranges: AoV Vmax: 3.62 m/s (<=1.7m/s) AoV Peak P.4 mmHg (<20mmHg) AoV Mean P.0 mmHg (1.7-11.5mmHg) LVOT Max Haseeb: 0.77 m/s (<=1.1m/s) AoV VTI: 98.20 cm (18-25cm) LVOT VTI: 21.40 cm LVOT Diameter: 1.90 cm (1.8-2.4cm) AoV Area, VTI: 0.62 cm2 (2.5-5.5cm2) AoV Area,Vmax: 0.60 cm2 (2.5-4.5cm2) AoV Dimensionless Index: 0.22 TRICUSPID VALVE/RVSP: Normal Ranges: Peak TR Velocity: 3.05 m/s RV Syst Pressure: 40.2 mmHg (< 30mmHg) PULMONIC VALVE: Normal Ranges: PV Max Haseeb: 0.9 m/s (0.6-0.9m/s) PV Max P.0 mmHg PIEDV: 2.23 m/s PADP: 22.9 mmHg [id number] Shy Wolf MD, [facility] Electronical (more content not included)... [facility] US carotid doppler BIon US carotid doppler [facility] [place] [address] [place] [id number] Ultrasound Report Signed Patient: Lavonne Villatoro MR#: [id number] : 1935 Acct:[id number] Age/Sex: 88 / F ADM Date: 10/14/23 Loc: Room: Type: [facility] Attending Dr: Suhas Garrett DO [...] Hola Wynn M.D.10/15/2023 11:47 AM [id number] Tech: Jackie Pal Transcribed By: KIRILL 10/15/23 1147 Dictated By: Hola Wynn MD 10/15/23 1145 Signed By: 10/15/23 1147 Normal [facility] Complete Blood Count Auto Di ffon 09-03-2023 Basophils (Bld) [#/Vol] 0.0 10*3/uL Normal 0.0-0.2 [facility] Comment on above: Result Comment: PERF ORMED BY: [place] [address] PATHOLOGIST LEHR OPERATOR JODY SOLANO M.D. Performed By: #### C MP, MG, CBC, CRP, T4F, TSH3, ESR, URIC #### [address] #### AUGUST, ASO, RA #### [facility] , Basophils/100 WBC (Bld) 0.7 % Normal . [facility] Comment on above: Performed By: #### C MP, MG, CBC, CRP, T4F, TSH3, ESR, URIC #### [address] #### AUGUST, ASO, RA #### [facility] , Eosinophils (Bld) [#/Vol] 0.1 10*3/uL Normal 0.0-0.45 [facility] Comment on above: Performed By: #### C MP, MG, CBC, CRP, T4F, TSH3, ESR, URIC #### [address] #### AUGUST, ASO, RA #### [facility] , Eosinophils/100 WBC (Bld) 1.6 % Normal . [facility] Comment on above: Performed By: #### C MP, MG, CBC, CRP, T4F, TSH3, ESR, URIC #### [place] [address] [place] #### AUGUST, ASO, RA #### [facility] , Erythrocyte distribution width (RBC) [Ratio] 14.8 % Normal 11.9-15.3 [facility] Comment on above: Performed By: #### C MP, MG, CBC, CRP, T4F, TSH3, ESR, URIC #### [place] [address] #### AUGUST, ASO, RA #### [facility] , Hematocrit (Bld) [Volume fraction] 39.9 % Normal 34.0-46.4 [facility] Comment on above: Performed By: #### C MP, MG, CBC, CRP, T4F, TSH3, ESR, URIC #### [address] #### AUGUST, ASO, RA #### [facility] , Hemoglobin (Bld) [Mass/Vol] 13.2 g/dL Normal 11.8-15.4 [facility] Comment on above: Performed By: #### C MP, MG, CBC, CRP, T4F, TSH3, ESR, URIC #### [address] #### AUGUST, ASO, RA #### [facility] , Lymphocytes (Bld) [#/Vol] 2.6 10*3/uL Normal 1.00-4.8 [facility] Comment on above: Performed By: #### C MP, MG, CBC, CRP, T4F, TSH3, ESR, URIC #### [address] #### AUGUST, ASO, RA #### [facility] , Lymphocytes/100 WBC (Bld) 43.5 % Normal . [facility] Comment on above: Performed By: #### C MP, MG, CBC, CRP, T4F, TSH3, ESR, URIC #### [place] [address] [place] #### AUGUST, ASO, RA #### [facility] , MCH (RBC) [Entitic mass] 33.2 pg Normal 24.7-34.3 [facility] Comment on above: Performed By: #### C MP, MG, CBC, CRP, T4F, TSH3, ESR, URIC #### [place] [address] [place] #### AUGUST, ASO, RA #### [facility] , MCV (RBC) [Entitic vol] 100.5 fL High 80-100 [facility] Comment on above: Performed By: #### C MP, MG, CBC, CRP, T4F, TSH3, ESR, URIC #### [place] [address] [place] #### AUGUST, ASO, RA #### [facility] , Mean Corpuscular HGB Conc 33.0 g/dL Normal 32.0-35.0 [facility] Comment on above: Performed By: #### C MP, MG, CBC, CRP, T4F, TSH3, ESR, URIC #### [address] #### AUGUST, ASO, RA #### [facility] , Monocytes (Bld) [#/Vol] 0.6 10*3/uL Normal 0.0-0.8 [facility] Comment on above: Performed By: #### C MP, MG, CBC, CRP, T4F, TSH3, ESR, URIC #### [place] [address] [place] #### AUGUST, ASO, RA #### [facility] , Monocytes/100 WBC (Bld) 9.7 % Normal . [facility] Comment on above: Performed By: #### C MP, MG, CBC, CRP, T4F, TSH3, ESR, URIC #### [place] [address] [place] #### AUGUST, ASO, RA #### [facility] , Neutrophils (Bld) [#/Vol] 2.7 10*3/uL Normal 1.8-7.7 [facility] Comment on above: Performed By: #### C MP, MG, CBC, CRP, T4F, TSH3, ESR, URIC #### [place] [address] [place] #### AUGUST, ASO, RA #### [facility] , Neutrophils/100 WBC (Bld) 44.5 % Normal . [facility] Comment on above: Performed By: #### C MP, MG, CBC, CRP, T4F, TSH3, ESR, URIC #### [address] #### AUGUST, ASO, RA #### [facility] , NRBC% 0.2 /100{WBC} Normal 0-0.5 [facility] Comment on above: Performed By: #### C MP, MG, CBC, CRP, T4F, TSH3, ESR, URIC #### [place] [address] [place] #### AUGUST, ASO, RA #### [facility] , Platelet mean volume (Bld) [Entitic vol] 9.2 fL Normal 6.3-10.7 [facility] Comment on above: Performed By: #### C MP, MG, CBC, CRP, T4F, TSH3, ESR, URIC #### [place] [address] [place] #### AUGUST, ASO, RA #### [facility] , Platelets (Bld) [#/Vol] 229 10*3/uL Normal 150-450 [facility] Comment on above: Performed By: #### C MP, MG, CBC, CRP, T4F, TSH3, ESR, URIC #### [place] [address] [place] #### AUGUST, ASO, RA #### [facility] , RBC (Bld) [#/Vol] 3.98 10*6/uL Normal 3.60-5.00 [facility] Comment on above: Performed By: #### C MP, MG, CBC, CRP, T4F, TSH3, ESR, URIC #### [place] [address] [place] #### AUGUST, ASO, RA #### [facility] , WBC (Bld) [#/Vol] 6.0 10*3/uL Normal 3.8-11.6 [facility] Comment on above: Performed By: #### C MP, MG, CBC, CRP, T4F, TSH3, ESR, URIC #### [place] [address] [place] #### AUGUST, ASO, RA #### [facility] , Comprehensive Metabolic Pane nory 09-03-2023 Albumin [Mass/Vol] 3.8 g/dL Normal 3.5-5.7 [facility] Comment on above: Performed By: #### C MP, MG, CBC, CRP, T4F, TSH3, ESR, URIC #### [address] #### AUGUST, ASO, RA #### [facility] , Albumin/Globulin [Mass ratio] 1.7 {ratio} Normal [facility] Comment on above: Performed By: #### C MP, MG, CBC, CRP, T4F, TSH3, ESR, URIC #### [facility] [address] [place] [address] [place] #### AUGUST, ASO, RA #### [facility] , ALP [Catalytic activity/Vol] 72 U/L Normal 34-104 [facility] Comment on above: Performed By: #### C MP, MG, CBC, CRP, T4F, TSH3, ESR, URIC #### [place] [address] [place] #### AUGUST, ASO, RA #### [facility] , ALT [Catalytic activity/Vol] 43 U/L Normal 7-52 [facility] Comment on above: Performed By: #### C MP, MG, CBC, CRP, T4F, TSH3, ESR, URIC #### [place] [address] [place] #### AUGUST, ASO, RA #### [facility] , Anion gap [Moles/Vol] 8.9 mmol/L Normal 6.0-15.0 [facility] Comment on above: Performed By: #### C MP, MG, CBC, CRP, T4F, TSH3, ESR, URIC #### [address] #### AUGUST, ASO, RA #### [facility] , AST [Catalytic activity/Vol] 23 U/L Normal 13-39 [facility] Comment on above: Performed By: #### C MP, MG, CBC, CRP, T4F, TSH3, ESR, URIC #### [place] [address] [place] #### AUGUST, ASO, RA #### [facility] , Bilirubin [Mass/Vol] 1.2 mg/dL High 0.3-1.0 [facility] Comment on above: Performed By: #### C MP, MG, CBC, CRP, T4F, TSH3, ESR, URIC #### [address] #### AUGUST, ASO, RA #### [facility] , Calcium [Mass/Vol] 9.5 mg/dL Normal 8.6-10.3 [facility] Comment on above: Performed By: #### C MP, MG, CBC, CRP, T4F, TSH3, ESR, URIC #### [place] [address] [place] #### AUGUST, ASO, RA #### [facility] , Chloride [Moles/Vol] 107 mmol/L Normal 98-107 [facility] Comment on above: Performed By: #### C MP, MG, CBC, CRP, T4F, TSH3, ESR, URIC #### [facility] [address] [place] [address] [place] #### AUGUST, ASO, RA #### [facility] , CO2 [Moles/Vol] 30.0 mmol/L Normal 21.0-31.0 [facility] Comment on above: Performed By: #### C MP, MG, CBC, CRP, T4F, TSH3, ESR, URIC #### [place] [address] [place] #### AUGUST, ASO, RA #### [facility] , Creatinine [Mass/Vol] 0.76 mg/dL Normal 0.60-1.20 [facility] Comment on above: Performed By: #### C MP, MG, CBC, CRP, T4F, TSH3, ESR, URIC #### [place] [address] [place] #### AUGUST, ASO, RA #### [facility] , GFR/1.73 sq M.predicted MDRD (S/P/Bld) [Vol rate/Area] mL/min/{1.73_m2} Normal [facility] Comment on above: Performed By: #### C MP, MG, CBC, CRP, T4F, TSH3, ESR, URIC #### [place] [address] [place] #### AUGUST, ASO, RA #### [facility] , Globulin (S) [Mass/Vol] 2.2 g/dL Normal [facility] Comment on above: Performed By: #### C MP, MG, CBC, CRP, T4F, TSH3, ESR, URIC #### [place] [address] [place] #### AUGUST, ASO, RA #### [facility] , Glucose [Mass/Vol] 79 mg/dL Normal 70-100 [facility] Comment on above: Result Comment: [place] Glucose Reference Range is dependent on time and content of last meal. Glucose of more than 200 mg/dL in a nonstressed, ambulatory subject supports the diagnosis of Diabetes Mellitus. ADA recommended reference range Performed By: #### C MP, MG, CBC, CRP, T4F, TSH3, ESR, URIC #### [place] [address] [place] #### AUGUST, ASO, RA #### [facility] , Potassium [Moles/Vol] 3.9 mmol/L Normal 3.5-5.1 [facility] Comment on above: Performed By: #### C MP, MG, CBC, CRP, T4F, TSH3, ESR, URIC #### [place] [address] [place] #### AUGUST, ASO, RA #### [facility] , Protein [Mass/Vol] 6.0 g/dL Low 6.4-8.9 [facility] Comment on above: Performed By: #### C MP, MG, CBC, CRP, T4F, TSH3, ESR, URIC #### [place] [address] [place] #### AUGUST, ASO, RA #### [facility] , Sodium [Moles/Vol] 142 mmol/L Normal 136-145 [facility] Comment on above: Performed By: #### C MP, MG, CBC, CRP, T4F, TSH3, ESR, URIC #### [place] [address] [place] #### AUGUST, ASO, RA #### [facility] , Urea nitrogen [Mass/Vol] 22 mg/dL Normal 7-25 [facility] Comment on above: Performed By: #### C MP, MG, CBC, CRP, T4F, TSH3, ESR, URIC #### [place] [address] [place] #### AUGUST, ASO, RA #### [facility] , Lipid Panelon 09-03-2023 Cholesterol [Mass/Vol] 243 mg/dL High 140-200 [facility] Comment on above: Result Comment: Chol less than 200 mg/dl low risk Chol 201-239 mg/dl borderline risk Chol 240 mg/dl and greater high risk Performed By: #### C MP, MG, CBC, CRP, T4F, TSH3, ESR, URIC #### [facility] [address] [place] [address] [place] #### AUGUST, ASO, RA #### [facility] , Cholesterol in HDL [Mass/Vol] 98 mg/dL High 23-92 [facility] Comment on above: Result Comment: HDL CHOL ATP-III CLASSIFICATION Cardiovascular Risk HDL > or equal to 60 mg/dL LOW HDL < 40 mg/dL HIGH Performed By: #### C MP, MG, CBC, CRP, T4F, TSH3, ESR, URIC #### [facility] [address] [place] [address] [place] #### AUGUST, ASO, RA #### [facility] , Cholesterol.total/Cho lesterol in HDL [Mass ratio] 2.5 {ratio} Normal <5.0 [facility] Comment on above: Performed By: #### C MP, MG, CBC, CRP, T4F, TSH3, ESR, URIC #### [facility] [address] [place] [address] [place] #### AUGUST, ASO, RA #### [facility] , LDL Cholesterol,Calculate d 121 mg/dL High 0-100 [facility] Comment on above: Result Comment: LDL ATP III CLASSIFICATION LDL less than 100 mg/dL Optimal LDL 100-129 mg/dL Near or above optimal LDL 130-159 mg/dL Borderline high LDL 160-189 mg/dL High LDL greater than 189 mg/dL Very high Performed By: #### C MP, MG, CBC, CRP, T4F, TSH3, ESR, URIC #### [facility] [address] [place] [address] [place] #### AUGUST, ASO, RA #### [facility] , Triglyceride w/Reflex 122 mg/dL Normal 0-149 [facility] Comment on above: Result Comment: TRIG ATP III CLASSIFICATION TRIG less than 150 mg/dL Normal TRIG 150-199 mg/dL Borderline high TRIG 200-500 mg/dL High TRIG greater than 500 mg/dL Very high Standard traceable to the Center for Disease Conrtrol and Prevention (CDC) test method. Performed By: #### C MP, MG, CBC, CRP, T4F, TSH3, ESR, URIC #### [place] [address] [place] #### AUGUST, ASO, RA #### [facility] , VLDL CHOLESTEROL 24 mg/dL Normal [facility] Comment on above: Performed By: #### C MP, MG, CBC, CRP, T4F, TSH3, ESR, URIC #### [place] [address] [place] #### AUGUST, ASO, RA #### [facility] , Thyroid Stimulating Hormoneo n 09-03-2023 TSH Qn 4.01 m[IU]/L Normal 0.45-5.33 [facility] Comment on above: Result Comment: PERF ORMED BY: [place] [address] PATHOLOGIST LEHR OPERATOR JODY SOLANO M.D. Performed By: #### C MP, MG, CBC, CRP, T4F, TSH3, ESR, URIC #### [address] #### AUGUST, ASO, RA #### [facility] , Complete Blood Count Auto Di ffon 07-08-2023 Basophils (Bld) [#/Vol] [id number] 10*3/uL Normal 0.0-0.2 10*3/uL [facility] Other Basophils/100 WBC (Bld) 0.900 % . % [facility] Other Eosinophils (Bld) [#/Vol] [id number] 10*3/uL Normal 0.0-0.45 10*3/uL [facility] Other Eosinophils/100 WBC (Bld) 1.100 % . % [facility] Other Erythrocyte distribution width (RBC) [Ratio] 14.000 % Normal 11.9-15.3 % [facility] Other Hematocrit (Bld) [Volume fraction] 37.700 % Normal 34.0-46.4 % [facility] Other Hemoglobin (Bld) [Mass/Vol] 12.014815 g/dL Normal 11.8-15.4 g/dL [facility] Other Lymphocytes (Bld) [#/Vol] 2.577470035 10*3/uL Normal 1.00-4.8 10*3/uL [facility] Other Lymphocytes/100 WBC (Bld) 35.100 % . % [facility] Other MCH (RBC) [Entitic mass] 33.3000 pg Normal 24.7-34.3 pg [facility] Other MCV (RBC) [Entitic vol] 99.7000 fL Normal 80-100 fL [facility] Other Monocytes (Bld) [#/Vol] 0.882595588 10*3/uL Normal 0.0-0.8 10*3/uL [facility] Other Monocytes/100 WBC (Bld) 10.000 % . % [facility] Other Neutrophils (Bld) [#/Vol] 3.606453524 10*3/uL Normal 1.8-7.7 10*3/uL [facility] Other Neutrophils/100 WBC (Bld) 52.900 % . % [facility] Other Platelet mean volume (Bld) [Entitic vol] 9.9000 fL Normal 6.3-10.7 fL [facility] Other WBC (Bld) [#/Vol] 7.820168010 10*3/uL Normal 3.8 -11.6 10*3/uL [facility] Other Complete Blood Count Auto Diff 7.1 10*3/uL Normal 3.8-11.6 10*3/uL [facility] Other Complete Blood Count Auto Diff 33.4 g/dL Normal 32.0-35.0 g/dL [facility] Other Complete Blood Count Auto Diff 0.1 /100{WBC} Normal 0-0.5 /100{WBC} [facility] Other Basophils (Bld) [#/Vol] 0.1 10*3/uL Normal 0.0-0.2 [facility] Comment on above: Order Comment: Reaso n for Exam Hyperthyroidism Result Comment: PERF ORMED BY: [place] [address] PATHOLOGIST LEHR OPERATOR JODY SOLANO M.D. Performed By: #### C MP, MG, CBC, CRP, T4F, TSH3, ESR, URIC #### [address] #### AUGUST, ASO, RA #### [facility] , Basophils/100 WBC (Bld) 0.9 % Normal . [facility] Comment on above: Order Comment: Reaso n for Exam Hyperthyroidism Performed By: #### C MP, MG, CBC, CRP, T4F, TSH3, ESR, URIC #### [address] #### AUGUST, ASO, RA #### [facility] , Eosinophils (Bld) [#/Vol] 0.1 10*3/uL Normal 0.0-0.45 [facility] Comment on above: Order Comment: Reaso n for Exam Hyperthyroidism Performed By: #### C MP, MG, CBC, CRP, T4F, TSH3, ESR, URIC #### [place] [address] [place] #### AUGUST, ASO, RA #### [facility] , Eosinophils/100 WBC (Bld) 1.1 % Normal . [facility] Comment on above: Order Comment: Reaso n for Exam Hyperthyroidism Performed By: #### C MP, MG, CBC, CRP, T4F, TSH3, ESR, URIC #### [address] #### AUGUST, ASO, RA #### [facility] , Erythrocyte distribution width (RBC) [Ratio] 14.0 % Normal 11.9-15.3 [facility] Comment on above: Order Comment: Reaso n for Exam Hyperthyroidism Performed By: #### C MP, MG, CBC, CRP, T4F, TSH3, ESR, URIC #### [address] #### AUGUST, ASO, RA #### [facility] , Hematocrit (Bld) [Volume fraction] 37.7 % Normal 34.0-46.4 [facility] Comment on above: Order Comment: Reaso n for Exam Hyperthyroidism Performed By: #### C MP, MG, CBC, CRP, T4F, TSH3, ESR, URIC #### [address] #### AUGUST, ASO, RA #### [facility] , Hemoglobin (Bld) [Mass/Vol] 12.6 g/dL Normal 11.8-15.4 [facility] Comment on above: Order Comment: Reaso n for Exam Hyperthyroidism Performed By: #### C MP, MG, CBC, CRP, T4F, TSH3, ESR, URIC #### [address] #### AUGUST, ASO, RA #### [facility] , Lymphocytes (Bld) [#/Vol] 2.5 10*3/uL Normal 1.00-4.8 [facility] Comment on above: Order Comment: Reaso n for Exam Hyperthyroidism Performed By: #### C MP, MG, CBC, CRP, T4F, TSH3, ESR, URIC #### [place] [address] [place] #### AUGUST, ASO, RA #### [facility] , Lymphocytes/100 WBC (Bld) 35.1 % Normal . [facility] Comment on above: Order Comment: Reaso n for Exam Hyperthyroidism Performed By: #### C MP, MG, CBC, CRP, T4F, TSH3, ESR, URIC #### [address] #### AUGUST, ASO, RA #### [facility] , MCH (RBC) [Entitic mass] 33.3 pg Normal 24.7-34.3 [facility] Comment on above: Order Comment: Reaso n for Exam Hyperthyroidism Performed By: #### C MP, MG, CBC, CRP, T4F, TSH3, ESR, URIC #### [address] #### AUGUST, ASO, RA #### [facility] , MCV (RBC) [Entitic vol] 99.7 fL Normal 80-100 [facility] Comment on above: Order Comment: Reaso n for Exam Hyperthyroidism Performed By: #### C MP, MG, CBC, CRP, T4F, TSH3, ESR, URIC #### [address] #### AUGUST, ASO, RA #### [facility] , Mean Corpuscular HGB Conc 33.4 g/dL Normal 32.0-35.0 [facility] Comment on above: Order Comment: Reaso n for Exam Hyperthyroidism Performed By: #### C MP, MG, CBC, CRP, T4F, TSH3, ESR, URIC #### [place] [address] [place] #### AUGUST, ASO, RA #### [facility] , Monocytes (Bld) [#/Vol] 0.7 10*3/uL Normal 0.0-0.8 [facility] Comment on above: Order Comment: Reaso n for Exam Hyperthyroidism Performed By: #### C MP, MG, CBC, CRP, T4F, TSH3, ESR, URIC #### [place] [address] [place] #### AUGUST, ASO, RA #### [facility] , Monocytes/100 WBC (Bld) 10.0 % Normal . [facility] Comment on above: Order Comment: Reaso n for Exam Hyperthyroidism Performed By: #### C MP, MG, CBC, CRP, T4F, TSH3, ESR, URIC #### [address] #### AUGUST, ASO, RA #### [facility] , Neutrophils (Bld) [#/Vol] 3.7 10*3/uL Normal 1.8-7.7 [facility] Comment on above: Order Comment: Reaso n for Exam Hyperthyroidism Performed By: #### C MP, MG, CBC, CRP, T4F, TSH3, ESR, URIC #### [place] [address] [place] #### AUGUST, ASO, RA #### [facility] , Neutrophils/100 WBC (Bld) 52.9 % Normal . [facility] Comment on above: Order Comment: Reaso n for Exam Hyperthyroidism Performed By: #### C MP, MG, CBC, CRP, T4F, TSH3, ESR, URIC #### [address] #### AUGUST, ASO, RA #### [facility] , NRBC% 0.1 /100{WBC} Normal 0-0.5 [facility] Comment on above: Order Comment: Reaso n for Exam Hyperthyroidism Performed By: #### C MP, MG, CBC, CRP, T4F, TSH3, ESR, URIC #### [place] [address] [place] #### AUGUST, ASO, RA #### [facility] , Platelet mean volume (Bld) [Entitic vol] 9.9 fL Normal 6.3-10.7 [facility] Comment on above: Order Comment: Reaso n for Exam Hyperthyroidism Performed By: #### C MP, MG, CBC, CRP, T4F, TSH3, ESR, URIC #### [place] [address] [place] #### AUGUST, ASO, RA #### [facility] , Platelets (Bld) [#/Vol] 224 10*3/uL Normal 150-450 [facility] Other Comment on above: Order Comment: Reaso n for Exam Hyperthyroidism Performed By: #### C MP, MG, CBC, CRP, T4F, TSH3, ESR, URIC #### [address] #### AUGUST, ASO, RA #### [facility] , RBC (Bld) [#/Vol] 3.78 10*6/uL Normal 3.60-5.00 [facility] Other Comment on above: Order Comment: Reaso n for Exam Hyperthyroidism Performed By: #### C MP, MG, CBC, CRP, T4F, TSH3, ESR, URIC #### [place] [address] [place] #### AUGUST, ASO, RA #### [facility] , WBC (Bld) [#/Vol] 7.1 10*3/uL Normal 3.8-11.6 [facility] Comment on above: Order Comment: Reaso n for Exam Hyperthyroidism Performed By: #### C MP, MG, CBC, CRP, T4F, TSH3, ESR, URIC #### [facility] [address] [place] [address] [place] #### AUGUST, ASO, RA #### [facility] , Comprehensive Metabolic Pane nory 07-08-2023 Albumin [Mass/Vol] 3.483160 g/dL Normal 3.5-5.7 g/dL [facility] Other Bilirubin [Mass/Vol] 0.8314951 mg/dL Normal 0.3- 1.0 mg/dL [facility] Other Calcium [Mass/Vol] 9.9254142 mg/dL Normal 8.6-10 .3 mg/dL [facility] Other CO2 [Moles/Vol] 30.87947427 mmol/L Normal 21.0-3 1.0 mmol/L [facility] Other Creatinine [Mass/Vol] 0.51730974 mg/dL Normal 0. 60-1.20 mg/dL [facility] Other Potassium [Moles/Vol] 3.27233051 mmol/L Normal 3 .5-5.1 mmol/L [facility] Other Protein [Mass/Vol] 6.131059 g/dL Low 6.4-8.9 g/dL [facility] Other Comprehensive Metabolic Panel 2.2 g/dL [facility] Other Albumin [Mass/Vol] 3.8 g/dL Normal 3.5-5.7 [facility] Comment on above: Order Comment: Reaso n for Exam Hyperthyroidism Performed By: #### C MP, MG, CBC, CRP, T4F, TSH3, ESR, URIC #### [place] [address] [place] #### AUGUST, ASO, RA #### [facility] , Albumin/Globulin [Mass ratio] 1.7 {ratio} Normal [facility] Other Comment on above: Order Comment: Reaso n for Exam Hyperthyroidism Performed By: #### C MP, MG, CBC, CRP, T4F, TSH3, ESR, URIC #### [facility] [address] [place] [address] [place] #### AUGUST, ASO, RA #### [facility] , ALP [Catalytic activity/Vol] 140 U/L High 34-104 [facility] Other Comment on above: Order Comment: Reaso n for Exam Hyperthyroidism Performed By: #### C MP, MG, CBC, CRP, T4F, TSH3, ESR, URIC #### [place] [address] [place] #### AUGUST, ASO, RA #### [facility] , ALT [Catalytic activity/Vol] 71 U/L High 7-52 [facility] Other Comment on above: Order Comment: Reaso n for Exam Hyperthyroidism Performed By: #### C MP, MG, CBC, CRP, T4F, TSH3, ESR, URIC #### [facility] [address] [place] [address] #### AUGUST, ASO, RA #### [facility] , Anion gap [Moles/Vol] 9.0 mmol/L Normal 6.0-15.0 [facility] Comment on above: Order Comment: Reaso n for Exam Hyperthyroidism Performed By: #### C MP, MG, CBC, CRP, T4F, TSH3, ESR, URIC #### [address] #### AUGUST, ASO, RA #### [facility] , AST [Catalytic activity/Vol] 20 U/L Normal 13-39 [facility] Other Comment on above: Order Comment: Reaso n for Exam Hyperthyroidism Performed By: #### C MP, MG, CBC, CRP, T4F, TSH3, ESR, URIC #### [facility] [address] [place] [address] [place] #### AUGUST, ASO, RA #### [facility] , Bilirubin [Mass/Vol] 0.7 mg/dL Normal 0.3-1.0 [facility] Comment on above: Order Comment: Reaso n for Exam Hyperthyroidism Performed By: #### C MP, MG, CBC, CRP, T4F, TSH3, ESR, URIC #### [facility] [address] [place] [address] [place] #### AUGUST, ASO, RA #### [facility] , Calcium [Mass/Vol] 9.4 mg/dL Normal 8.6-10.3 [facility] Comment on above: Order Comment: Reaso n for Exam Hyperthyroidism Performed By: #### C MP, MG, CBC, CRP, T4F, TSH3, ESR, URIC #### [facility] [address] [place] [address] [place] #### AUGUST, ASO, RA #### [facility] , Chloride [Moles/Vol] 107 mmol/L Normal 98-107 [facility] Other Comment on above: Order Comment: Reaso n for Exam Hyperthyroidism Performed By: #### C MP, MG, CBC, CRP, T4F, TSH3, ESR, URIC #### [place] [address] [place] #### AUGUST, ASO, RA #### [facility] , CO2 [Moles/Vol] 30.7 mmol/L Normal 21.0-31.0 [facility] Comment on above: Order Comment: Reaso n for Exam Hyperthyroidism Performed By: #### C MP, MG, CBC, CRP, T4F, TSH3, ESR, URIC #### [place] [address] [place] #### AUGUST, ASO, RA #### [facility] , Creatinine [Mass/Vol] 0.76 mg/dL Normal 0.60-1.20 [facility] Comment on above: Order Comment: Reaso n for Exam Hyperthyroidism Performed By: #### C MP, MG, CBC, CRP, T4F, TSH3, ESR, URIC #### [facility] [address] [place] [address] [place] #### AUGUST, ASO, RA #### [facility] , GFR/1.73 sq M.predicted MDRD (S/P/Bld) [Vol rate/Area] mL/min/{1.73_m2} Normal [facility] Other Comment on above: Order Comment: Reaso n for Exam Hyperthyroidism Performed By: #### C MP, MG, CBC, CRP, T4F, TSH3, ESR, URIC #### [address] #### AUGUST, ASO, RA #### [facility] , Globulin (S) [Mass/Vol] 2.2 g/dL Normal [facility] Comment on above: Order Comment: Reaso n for Exam Hyperthyroidism Performed By: #### C MP, MG, CBC, CRP, T4F, TSH3, ESR, URIC #### [facility] [address] [place] [address] [place] #### AUGUST, ASO, RA #### [facility] , Glucose [Mass/Vol] 89 mg/dL Normal 70-100 [facility] Other Comment on above: Order Comment: Reaso n for Exam Hyperthyroidism Result Comment: [facility] Glucose Reference Range is dependent on time and content of last meal. Glucose of more than 200 mg/dL in a nonstressed, ambulatory subject supports the diagnosis of Diabetes Mellitus. ADA recommended reference range Performed By: #### C MP, MG, CBC, CRP, T4F, TSH3, ESR, URIC #### [place] [address] [place] #### AUGUST, ASO, RA #### [facility] , Potassium [Moles/Vol] 3.7 mmol/L Normal 3.5-5.1 [facility] Comment on above: Order Comment: Reaso n for Exam Hyperthyroidism Performed By: #### C MP, MG, CBC, CRP, T4F, TSH3, ESR, URIC #### [facility] [address] [place] [address] [place] #### AUGUST, ASO, RA #### [facility] , Protein [Mass/Vol] 6.0 g/dL Low 6.4-8.9 [facility] Comment on above: Order Comment: Reaso n for Exam Hyperthyroidism Performed By: #### C MP, MG, CBC, CRP, T4F, TSH3, ESR, URIC #### [facility] [address] [place] [address] [place] #### AUGUST, ASO, RA #### [facility] , Sodium [Moles/Vol] 143 mmol/L Normal 136-145 [facility] Other Comment on above: Order Comment: Reaso n for Exam Hyperthyroidism Performed By: #### C MP, MG, CBC, CRP, T4F, TSH3, ESR, URIC #### [facility] [address] [place] [address] [place] #### AUGUST, ASO, RA #### [facility] , Urea nitrogen [Mass/Vol] 21 mg/dL Normal 7-25 [facility] Other Comment on above: Order Comment: Reaso n for Exam Hyperthyroidism Performed By: #### C MP, MG, CBC, CRP, T4F, TSH3, ESR, URIC #### [facility] [address] [place] [address] [place] #### AUGUST, ASO, RA #### [facility] , Free T4 (Free Thyroxine)on 0 07-08-2023 Free T4 [Mass/Vol] 1.89595120 ng/dL High 0.61- 1.12 ng/dL [facility] Other Free T4 [Mass/Vol] 1.46 ng/dL High 0.61-1.12 [facility] Comment on above: Order Comment: Reaso n for Exam Hyperthyroidism Performed By: #### C MP, MG, CBC, CRP, T4F, TSH3, ESR, URIC #### [facility] [address] [place] [address] [place] #### AUGUST, ASO, RA #### [facility] , Thyroid Antibodies TPO+Tg Ab on 07-08-2023 Thyroid Antibodies TPO+Tg Ab 11 0-34 [facility] Other Thyroid Antibodies TPO+Tg Ab <1.0 0.0-0.9 [facility] Other Antithyroglobulin Ab <1.0 Normal 0.0-0.9 [facility] Comment on above: Order Comment: Reaso n for Exam Hyperthyroidism Result Comment: Thyr oglobulin Antibody measured by [employer] Performed at: - [facility] [id number] Lighter Captain: Antonino Belle PhD, Phone: [phone] PERFORMED BY: [place] [address] PATHOLOGIST LEHR OPERATOR JODY SOLANO M.D. Performed By: #### C MP, MG, CBC, CRP, T4F, TSH3, ESR, URIC #### [address] #### AUGUST, ASO, RA #### [facility] , Thyroid Peroxidase Antibodies 11 Normal 0-34 [facility] Comment on above: Order Comment: Reaso n for Exam Hyperthyroidism Performed By: #### C MP, MG, CBC, CRP, T4F, TSH3, ESR, URIC #### [facility] [address] [place] [address] #### AUGUST, ASO, RA #### [facility] , Thyroid Stimulating Hormoneo n 07-08-2023 TSH Qn 2.36199178325 m[IU]/L Normal 0.45-5.33 u[iU]/mL [facility] Other TSH Qn 2.42 m[IU]/L Normal 0.45-5.33 [facility] Comment on above: Order Comment: Reaso n for Exam Hyperthyroidism Result Comment: PERF ORMED BY: [place] [address] PATHOLOGIST LEHR OPERATOR JODY SOLANO M.D. Performed By: #### C MP, MG, CBC, CRP, T4F, TSH3, ESR, URIC #### [address] [place] [address] [place] #### AUGUST, ASO, RA #### [facility] , AUGUST Antinuclear Antibodieson 07-04-2023 Antinuclear Abs, IFA Positive Critically abnormal . [facility] Comment on above: Result Comment: Nega tive <1:80 Borderline 1:80 Positive >1:80 Speckled cytoplasmic fluorescence is present. The antibodies noted in this pattern may be associated with, but not restricted to, primary biliary cirrhosis (PBC), polymyositis and dermatomyositis (PM/DM), and/or systemic lupus erythematosus (SLE). Performed By: #### C MP, MG, CBC, CRP, T4F, TSH3, ESR, URIC #### [facility] [address] [place] [address] #### AUGUST, ASO, RA #### [facility] , Homogeneous Pattern 1:160 High . [facility] Comment on above: Result Comment: ICAP nomenclature: [id number] Performed By: #### C MP, MG, CBC, CRP, T4F, TSH3, ESR, URIC #### [facility] [address] [place] [address] #### AUGUST, ASO, RA #### [facility] , Note 1 Normal . [facility] Comment on above: Result Comment: Lucita marshall [employer] Homogeneous Systemic Lupus Erythematosus, Drug Induced Systemic Lupus Erythematosus, Chronic Autoimmune hepatitis, Juvenile Idiopathic Arthritis Speckled Sjogren Syndrome, Systemic Lupus Erythematosus, Subacute Cutaneous Lupus, Lupus, Congenital Heart Block, Mixed Connective Tissue Disease, Scleroderma-diffuse, Scleroderma-Autoimmune Myositis Overlap Syndrome, Systemic Lupus Ehgrkieontcyq-Kqkbinrotvb-Yjnkgcjxhn Myositis Overlap Syndrome, Systemic Autoimmune Rheumatic Disease, [...] Cytopenias, Linear Scleroderma, Antiphospholipid Syndrome Performed at: - [facility] [id number] Lighter Captain: Antonino Belle PhD, Phone: [phone] Performed By: #### C MP, MG, CBC, CRP, T4F, TSH3, ESR, URIC #### [address] #### AGUUST, ASO, RA #### [facility] , Anti-Streptolysin O Antibody on 07-04-2023 Anti-Streptolysin O Antibody <20.0 Normal 0.0-200.0 [facility] Comment on above: Result Comment: Perf ormed at: - [facility] [address] [id number] Lighter Captain: Antonino Belle PhD, Phone: [phone] PERFORMED BY: [place] [address] PATHOLOGIST LEHR OPERATOR JODY SOLANO M.D. Performed By: #### C MP, MG, CBC, CRP, T4F, TSH3, ESR, URIC #### [address] #### AUGUST, ASO, RA #### [facility] , C-Reactive Proteinon 024 C-Reactive Protein 0.5 mg/dL Normal 0.0-0.5 [facility] Comment on above: Performed By: #### C MP, MG, CBC, CRP, T4F, TSH3, ESR, URIC #### [address] #### AUGUST, ASO, RA #### [facility] , Complete Blood Count Auto Di ffon 07-04-2023 Basophils (Bld) [#/Vol] 0.0 10*3/uL Normal 0.0-0.2 [facility] Comment on above: Performed By: #### C MP, MG, CBC, CRP, T4F, TSH3, ESR, URIC #### [address] #### AUGUST, ASO, RA #### [facility] , Basophils/100 WBC (Bld) 0.6 % Normal . [facility] Comment on above: Performed By: #### C MP, MG, CBC, CRP, T4F, TSH3, ESR, URIC #### [place] [address] [place] #### AUGUST, ASO, RA #### [facility] , Eosinophils (Bld) [#/Vol] 0.1 10*3/uL Normal 0.0-0.45 [facility] Comment on above: Performed By: #### C MP, MG, CBC, CRP, T4F, TSH3, ESR, URIC #### [place] [address] [place] #### AUGUST, ASO, RA #### [facility] , Eosinophils/100 WBC (Bld) 0.7 % Normal . [facility] Comment on above: Performed By: #### C MP, MG, CBC, CRP, T4F, TSH3, ESR, URIC #### [address] #### AUGUST, ASO, RA #### [facility] , Erythrocyte distribution width (RBC) [Ratio] 14.1 % Normal 11.9-15.3 [facility] Comment on above: Performed By: #### C MP, MG, CBC, CRP, T4F, TSH3, ESR, URIC #### [place] [address] [place] #### AUGUST, ASO, RA #### [facility] , Hematocrit (Bld) [Volume fraction] 38.8 % Normal 34.0-46.4 [facility] Comment on above: Performed By: #### C MP, MG, CBC, CRP, T4F, TSH3, ESR, URIC #### [place] [address] [place] #### AUGUST, ASO, RA #### [facility] , Hemoglobin (Bld) [Mass/Vol] 13.4 g/dL Normal 11.8-15.4 [facility] Comment on above: Performed By: #### C MP, MG, CBC, CRP, T4F, TSH3, ESR, URIC #### [place] [address] [place] #### AUGUST, ASO, RA #### [facility] , Lymphocytes (Bld) [#/Vol] 1.0 10*3/uL Normal 1.00-4.8 [facility] Comment on above: Performed By: #### C MP, MG, CBC, CRP, T4F, TSH3, ESR, URIC #### [place] [address] [place] #### AUGUST, ASO, RA #### [facility] , Lymphocytes/100 WBC (Bld) 13.9 % Normal . [facility] Comment on above: Performed By: #### C MP, MG, CBC, CRP, T4F, TSH3, ESR, URIC #### [address] #### AUGUST, ASO, RA #### [facility] , MCH (RBC) [Entitic mass] 33.9 pg Normal 24.7-34.3 [facility] Comment on above: Performed By: #### C MP, MG, CBC, CRP, T4F, TSH3, ESR, URIC #### [place] [address] [place] #### AUGUST, ASO, RA #### [facility] , MCV (RBC) [Entitic vol] 98.3 fL Normal 80-100 [facility] Comment on above: Performed By: #### C MP, MG, CBC, CRP, T4F, TSH3, ESR, URIC #### [place] [address] [place] #### AUGUST, ASO, RA #### [facility] , Mean Corpuscular HGB Conc 34.4 g/dL Normal 32.0-35.0 [facility] Comment on above: Performed By: #### C MP, MG, CBC, CRP, T4F, TSH3, ESR, URIC #### [place] [address] [place] #### AUGUST, ASO, RA #### [facility] , Monocytes (Bld) [#/Vol] 0.4 10*3/uL Normal 0.0-0.8 [facility] Comment on above: Performed By: #### C MP, MG, CBC, CRP, T4F, TSH3, ESR, URIC #### [address] #### AUGUST, ASO, RA #### [facility] , Monocytes/100 WBC (Bld) 5.4 % Normal . [facility] Comment on above: Performed By: #### C MP, MG, CBC, CRP, T4F, TSH3, ESR, URIC #### [place] [address] [place] #### AUGUST, ASO, RA #### [facility] , Neutrophils (Bld) [#/Vol] 5.8 10*3/uL Normal 1.8-7.7 [facility] Comment on above: Performed By: #### C MP, MG, CBC, CRP, T4F, TSH3, ESR, URIC #### [place] [address] [place] #### AUGUST, ASO, RA #### [facility] , Neutrophils/100 WBC (Bld) 79.4 % Normal . [facility] Comment on above: Performed By: #### C MP, MG, CBC, CRP, T4F, TSH3, ESR, URIC #### [place] [address] [place] #### AUGUST, ASO, RA #### [facility] , NRBC% 0.0 /100{WBC} Normal 0-0.5 [facility] Comment on above: Performed By: #### C MP, MG, CBC, CRP, T4F, TSH3, ESR, URIC #### [place] [address] [place] #### AUGUST, ASO, RA #### [facility] , Platelet mean volume (Bld) [Entitic vol] 9.6 fL Normal 6.3-10.7 [facility] Comment on above: Performed By: #### C MP, MG, CBC, CRP, T4F, TSH3, ESR, URIC #### [place] [address] [place] #### AUGUST, ASO, RA #### [facility] , Platelets (Bld) [#/Vol] 211 10*3/uL Normal 150-450 [facility] Comment on above: Performed By: #### C MP, MG, CBC, CRP, T4F, TSH3, ESR, URIC #### [place] [address] [place] #### AUGUST, ASO, RA #### [facility] , RBC (Bld) [#/Vol] 3.95 10*6/uL Normal 3.60-5.00 [facility] Comment on above: Performed By: #### C MP, MG, CBC, CRP, T4F, TSH3, ESR, URIC #### [place] [address] [place] #### AUGUST, ASO, RA #### [facility] , WBC (Bld) [#/Vol] 7.3 10*3/uL Normal 3.8-11.6 [facility] Comment on above: Performed By: #### C MP, MG, CBC, CRP, T4F, TSH3, ESR, URIC #### [place] [address] [place] #### AUGUST, ASO, RA #### [facility] , Comprehensive Metabolic Pane nory 07-04-2023 Albumin [Mass/Vol] 4.2 g/dL Normal 3.5-5.7 [facility] Comment on above: Performed By: #### C MP, MG, CBC, CRP, T4F, TSH3, ESR, URIC #### [place] [address] [place] #### AUGUST, ASO, RA #### [facility] , Albumin/Globulin [Mass ratio] 1.8 {ratio} Normal [facility] Comment on above: Performed By: #### C MP, MG, CBC, CRP, T4F, TSH3, ESR, URIC #### [address] #### AUGUST, ASO, RA #### [facility] , ALP [Catalytic activity/Vol] 220 U/L High 34-104 [facility] Comment on above: Performed By: #### C MP, MG, CBC, CRP, T4F, TSH3, ESR, URIC #### [address] #### AUGUST, ASO, RA #### [facility] , ALT [Catalytic activity/Vol] 181 U/L High 7-52 [facility] Comment on above: Performed By: #### C MP, MG, CBC, CRP, T4F, TSH3, ESR, URIC #### [address] #### AUGUST, ASO, RA #### [facility] , Anion gap [Moles/Vol] 11.0 mmol/L Normal 6.0-15.0 Th e [facility] Comment on above: Performed By: #### C MP, MG, CBC, CRP, T4F, TSH3, ESR, URIC #### [facility] [address] [place] [address] [place] #### AUGUST, ASO, RA #### [facility] , AST [Catalytic activity/Vol] 56 U/L High 13-39 [facility] Comment on above: Performed By: #### C MP, MG, CBC, CRP, T4F, TSH3, ESR, URIC #### [facility] [address] [place] [address] #### AUGUST, ASO, RA #### [facility] , Bilirubin [Mass/Vol] 1.2 mg/dL High 0.3-1.0 [facility] Comment on above: Performed By: #### C MP, MG, CBC, CRP, T4F, TSH3, ESR, URIC #### [address] #### AUGUST, ASO, RA #### [facility] , Calcium [Mass/Vol] 10.0 mg/dL Normal 8.6-10.3 [facility] Comment on above: Performed By: #### C MP, MG, CBC, CRP, T4F, TSH3, ESR, URIC #### [place] [address] [place] #### AUGUST, ASO, RA #### [facility] , Chloride [Moles/Vol] 105 mmol/L Normal 98-107 [facility] Comment on above: Performed By: #### C MP, MG, CBC, CRP, T4F, TSH3, ESR, URIC #### [address] #### AUGUST, ASO, RA #### [facility] , CO2 [Moles/Vol] 29.8 mmol/L Normal 21.0-31.0 [facility] Comment on above: Performed By: #### C MP, MG, CBC, CRP, T4F, TSH3, ESR, URIC #### [place] [address] [place] #### AUGUST, ASO, RA #### [facility] , Creatinine [Mass/Vol] 0.68 mg/dL Normal 0.60-1.20 [facility] Comment on above: Performed By: #### C MP, MG, CBC, CRP, T4F, TSH3, ESR, URIC #### [place] [address] [place] #### AUGUST, ASO, RA #### [facility] , GFR/1.73 sq M.predicted MDRD (S/P/Bld) [Vol rate/Area] mL/min/{1.73_m2} Normal [facility] Comment on above: Performed By: #### C MP, MG, CBC, CRP, T4F, TSH3, ESR, URIC #### [address] #### AUGUST, ASO, RA #### [facility] , Globulin (S) [Mass/Vol] 2.4 g/dL Normal [facility] Comment on above: Performed By: #### C MP, MG, CBC, CRP, T4F, TSH3, ESR, URIC #### [place] [address] [place] #### AUGUST, ASO, RA #### [facility] , Glucose [Mass/Vol] 97 mg/dL Normal 70-100 [facility] Comment on above: Result Comment: [facility] Glucose Reference Range is dependent on time and content of last meal. Glucose of more than 200 mg/dL in a nonstressed, ambulatory subject supports the diagnosis of Diabetes Mellitus. ADA recommended reference range Performed By: #### C MP, MG, CBC, CRP, T4F, TSH3, ESR, URIC #### [place] [address] [place] #### AUGUST, ASO, RA #### [facility] , Potassium [Moles/Vol] 3.8 mmol/L Normal 3.5-5.1 [facility] Comment on above: Performed By: #### C MP, MG, CBC, CRP, T4F, TSH3, ESR, URIC #### [place] [address] [place] #### AUGUST, ASO, RA #### [facility] , Protein [Mass/Vol] 6.6 g/dL Normal 6.4-8.9 [facility] Comment on above: Performed By: #### C MP, MG, CBC, CRP, T4F, TSH3, ESR, URIC #### [address] #### AUGUST, ASO, RA #### [facility] , Sodium [Moles/Vol] 142 mmol/L Normal 136-145 [facility] Comment on above: Performed By: #### C MP, MG, CBC, CRP, T4F, TSH3, ESR, URIC #### [address] #### AUGUST, ASO, RA #### [facility] , Urea nitrogen [Mass/Vol] 19 mg/dL Normal 7-25 [facility] Comment on above: Performed By: #### C MP, MG, CBC, CRP, T4F, TSH3, ESR, URIC #### [address] #### AUGUST, ASO, RA #### [facility] , Erythrocyte Sedimentation Ra amy 07-04-2023 ESR (Bld) [Velocity] 19 mm/h Normal 0-29 [facility] Comment on above: Result Comment: PERF ORMED BY: [place] [address] PATHOLOGIST LEHR OPERATOR JODY SOLANO M.D. Performed By: #### C MP, MG, CBC, CRP, T4F, TSH3, ESR, URIC #### [address] #### AUGUST, ASO, RA #### [facility] , Free T4 (Free Thyroxine)on 0 07-04-2023 Free T4 [Mass/Vol] 4.05 ng/dL High 0.61-1.12 [facility] Comment on above: Performed By: #### C MP, MG, CBC, CRP, T4F, TSH3, ESR, URIC #### [place] [address] [place] #### AUGUST, ASO, RA #### [facility] , Magnesiumon 07-04-2023 Magnesium [Mass/Vol] 2.0 mg/dL Normal 1.9-2.7 [facility] Comment on above: Performed By: #### C MP, MG, CBC, CRP, T4F, TSH3, ESR, URIC #### [address] #### AUGUST, ASO, RA #### [facility] , Rheumatoid Factoron 07-04-19 Rheumatoid Factor 15.3 High <14.0 [facility] Comment on above: Result Comment: Perf ormed at: - [facility] [address] [id number] Lighter Captain: Antonino Belle PhD, Phone: [phone] Performed By: #### C MP, MG, CBC, CRP, T4F, TSH3, ESR, URIC #### [address] #### AUGUST, ASO, RA #### [facility] , Thyroid Stimulating Hormoneo n 07-04-2023 TSH Qn 1.35 m[IU]/L Normal 0.45-5.33 The [facility] Comment on above: Result Comment: PERF ORMED BY: [place] [address] PATHOLOGIST LEHR OPERATOR JODY SOLANO M.D. Performed By: #### C MP, MG, CBC, CRP, T4F, TSH3, ESR, URIC #### [address] #### AUGUST, ASO, RA #### [facility] , Uric Acidon 07-04-2023 Urate [Mass/Vol] 4.0 mg/dL Normal 2.3-6.6 [facility] Comment on above: Performed By: #### C MP, MG, CBC, CRP, T4F, TSH3, ESR, URIC #### [address] #### AUGUST, ASO, RA #### [facility] , Echocardiogramon 02-26-2023 Echocardiography [facility] [address] [place] [address], [address], [place] [address] TRANSTHORACIC ECHOCARDIOGRAM REPORT Patient Name: LAVONNE Bahena Physician: [id number] Shy Wolf MD, [facility] Study Date: 02/26/2023 Referring SHY WOLF Physician: MRN/PID: [id number] PCP: Suhas Garrett MD Accession/Order#: [id number] Department [facility] Location: Date of : 1935 Fellow: Gender: F Nurse: Admit Date: Deliverer Merchandise: Sheridan Lemus RDCS, RVT Height: 157.48 cm CC Report to: Weight: 67.13 kg Study Type: Echocardiogram BSA: 1.68 m2 Blood Pressure: 122 /76 mmHg Diagnosis/ICD: I35.0-Nonrheumatic aortic (valve) stenosis; R01.1-Cardiac murmur, unspecified Indication: HTN, Hyperlipidemia, Overweight, Hypothyroid, Polymyalgia Rheumatica Procedure/CPT: Echo Complete w Full [id number] Study Detail: The following Echo studies were [...] mmHg PIEDV: 2.50 m/s PADP: 28.0 mmHg [id number] [facility] Electronically signed on 03/01/2023 at 2:16:46 PM Final Normal [facility] Office Visit (Cardiology)on 12-24-2022 Follow-up visit Diagnoses/Problems Assessed Aortic stenosis (424.1) (I35.0) Murmur, cardiac (785.2) (R01.1) Essential hypertension (401.9) (I10) Hyperlipidemia (272.4) (E78.5) Overweight with body mass index (BMI) of 27 to 27.9 in adult (278.02,V85.23) (E66.3,Z68.27) Never smoker Hypothyroidism (244.9) (E03.9) PMR (polymyalgia rheumatica) (725) (M35.3) Orders Aortic stenosis, Murmur, cardiac Echocardiogram; Status:Hold For - Scheduling,Retrospec tive Authorization; Requested for:[id number]; Essential hypertension, Hyperlipidemia Changed: From Aspirin EC 81 MG TBEC TAKE 1 TABLET To Aspirin 81 MG Oral Tablet Delayed Release TAKE 1 TABLET DAILY Overweight with body mass index (BMI) of 27 to 27.9 in adult Healthy Weight Tips; Status:Complete - Retrospective Authorization; Done: [id number] Some eating tips that can help you lose weight.; Status:Complete - Retrospective Authorization; Done: [id number] SocHx: Never smoker Tobacco Use Screening; Status:Complete; Done: [id number] Patient Instructions Please bring all medicines, vitamins, [...] is being tapered gradually Shy Wolf MD, [facility] Past Medical History Problems History of Carotid bruit (785.9) (R09.89) Current Meds Medication NameInstruction amLODIPine Besylate 10 MG Oral TabletTAKE 1 TABLET DAILY. Aspirin EC 81 MG TBECTAKE 1 TABLET M-W-F Calcium 600 MG TABSTAKE 1 TABLET DAILY. Carvedilol 6.25 MG Oral TabletTAKE 1 TABLET TWICE DAILY WITH MEALS. Levothyroxine Sodium 100 MCG Oral TabletTAKE 1 TABLET DAILY. Losartan Potassium-HCTZ 100-12.5 MG Oral TabletTAKE 1 TABLET DAILY. Multi Vitamin Oral TabletTAKE 1 TABLET DAILY. Clarendon-3 Fish Oil 1000 MG Oral CapsuleTAKE 1 [...] negative for complaint. Vitals Vital Signs Recorded: [id number] 11:32AM Heart Rate68, R Radial Ptnuxtag991, RUE, Sitting Mijgdujfk86, RUE, Sitting Height5 ft 2 in Auhudw602 lb BMI Ocrxcrwuns79.07 kg/m2 BSA Calculated1.68 Tobacco Useb) No PHQ-2 [...] Screening.on 023 Adult depression screening assessment [facility] DO Work Phone: Fall risk assessment a) No falls within the last year [employer] 250 DO Work Phone: Tobacco use status CPHS b) [facility] DO Work Phone: Complete Blood Count Auto Di ffon 02-22-2022 Basophils (Bld) [#/Vol] 0.986244375 10*3/uL Normal 0.0-0.2 10*3/uL [facility] Other Basophils/100 WBC (Bld) 0.700 % . % [facility] Other Eosinophils (Bld) [#/Vol] 0.893134641 10*3/uL Normal 0.0-0.45 10*3/uL [facility] Other Eosinophils/100 WBC (Bld) 0.700 % . % [facility] Other Erythrocyte distribution width (RBC) [Ratio] 13.500 % Normal 11.9-15.3 % [facility] Other Hematocrit (Bld) [Volume fraction] 38.400 % Normal 34.0-46.4 % [facility] Other Hemoglobin (Bld) [Mass/Vol] 12.123922 g/dL Normal 11.8-15.4 g/dL [facility] Other Lymphocytes (Bld) [#/Vol] 0.207996938 10*3/uL Low 1.00-4.8 10*3/uL [facility] Other Lymphocytes/100 WBC (Bld) 12.600 % . % [facility] Other MCH (RBC) [Entitic mass] 33.7000 pg Normal 24.7-34.3 pg [facility] Other MCV (RBC) [Entitic vol] 100.4000 fL High 80-100 fL [facility] Other Monocytes (Bld) [#/Vol] 0.040447433 10*3/uL Normal 0.0-0.8 10*3/uL [facility] Other Monocytes/100 WBC (Bld) 6.800 % . % [facility] Other Neutrophils (Bld) [#/Vol] 5.348823614 10*3/uL Normal 1.8-7.7 10*3/uL [facility] Other Neutrophils/100 WBC (Bld) 79.200 % . % [facility] Other Platelet mean volume (Bld) [Entitic vol] 9.4000 fL Normal 6.3-10.7 fL [facility] Other Platelets (Bld) [#/Vol] 223 10*3/uL Normal 150-450 10*3/uL [facility] Other RBC (Bld) [#/Vol] 3.1954499669 10*6/uL Normal 3. 60-5.00 10*6/uL [facility] Other WBC (Bld) [#/Vol] 6.697225407 10*3/uL Normal 3.8 -11.6 10*3/uL [facility] Other Complete Blood Count Auto Diff 6.6 10*3/uL Normal 4.5-11.0 10*3/uL [facility] Other Complete Blood Count Auto Diff 33.6 g/dL Normal 32.0-35.0 g/dL [facility] Other Complete Blood Count Auto Diff 0.1 % Normal 0-0.5 % [facility] Other Erythrocyte Sedimentation Ra amy 02-22-2022 ESR (Bld) [Velocity] 28 mm/h Normal 0-29 [facility] [employer] Other [facility] Carotid Artery Dupl ex Ultrasoundon 02-21-2022 US.doppler Carotid arteries [facility] [employer]back [address] [place] Work Phone: COVID Quick Testingon 2021 Result Positive [facility] Other Falls Screening (Age 18+)on 12-26-2021 Fall risk assessment a) No falls within the last year [facility] [employer] 250 DO Work Phone: Office Visit (Cardiology)on [...] Multi Vitamin Oral TabletTAKE 1 TABLET DAILY. Clarendon 3 500 CAPSTAKE 1 CAPSULE Daily predniSONE 5 MG Oral Yfcuzm2CZ 7.5MG BY MOUTH ONE DAILY ALTERNATING EVERY OTHER DAY Allergies Medication amoxicillin Hives;; Recorded By: Kayla Orr; 10/17/2021 10:50:34 AM Dilantin CAPS Rash; Recorded By: Kayla Orr; 10/17/2021 10:50:34 AM Fosamax eye pain; Recorded By: Kayla Orr; 10/17/2021 10:50:34 AM Depakote ER TB24 Recorded By: Kayla Orr; 10/17/2021 10:50:34 AM Vitals Vital Signs Recorded: [id number] 11:04AMRecorded: [id number] 11:00AM Heart Rate56, R Hfewos92, R Radial Eejglhjc432, LUE, Wrmehlm481, RUE Bhcnzsktm31, LUE, Ujqofxa80, RUE Height5 ft 2 in5 ft 2 in Eapaae488 lb 143 lb BMI Mdxctiboib11.16 kg/m226.16 kg/m2 BSA Calculated1.661.66 Falls Screening (Age 18+)a) No falls within the last year Signatures Electronically signed by : Shy Wolf MD; Dec 26 2021 4:02PM EST (Author) Normal Etable Tobacco Screening.on 022 Adult depression screening assessment No [facility] Work Phone: Fall risk assessment a) No falls within the last year [facility] Work Phone: Tobacco use status CPHS b) No [facility] Work Phone: Vital Signs Date Time Vital Sign Value 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 Facility 07-04-2023 11:15-0500 Body height 157.48 cm Suhas Garrett Other [facility] Other 07-04-2023 11:15-0500 Body mass index (BMI) [Ratio] 28.53 kg/m2 Suhas Garrett Other [facility] Other 07-04-2023 11:15-0500 Body weight 70.76 kg Suhas Garrett Other [facility] Other 07-04-2023 11:15-0500 Diastolic blood pressure 84 mm[Hg] Suhas Garrett Other [facility] Other 07-04-2023 11:15-0500 Respiratory rate 20 /min Suhas Garrett Other [facility] Other 07-04-2023 11:15-0500 SaO2% (BldA) [Mass fraction] 99 % Suhas Garrett Other [facility] Other 07-04-2023 11:15-0500 Systolic blood pressure 150 mm[Hg] Suhas Garrett Other [facility] Other 06-19-2023 11:09-0500 Body height 157.5 cm Shy Wolf MD Work Phone: [facility] 06-19-2023 11:09-0500 Body mass index (BMI) [Ratio] 27.98 kg/m2 Shy Wolf MD Work Phone: [facility] 06-19-2023 11:09-0500 Body weight 69.4 kg Shy Wolf MD Work Phone: [facility] 06-19-2023 11:09-0500 Diastolic blood pressure 76 mm[Hg] Shy Wolf MD Work Phone: [facility] 06-19-2023 11:09-0500 Heart rate 60 /min Shy Wolf MD Work Phone: [facility] 06-19-2023 11:09-0500 Systolic blood pressure 120 mm[Hg] Shy Wolf MD Work Phone: [facility] 05-30-2023 11:00-0500 Body height 157.48 cm Suhasraquel Garrett Other [facility] Other 05-30-2023 11:00-0500 Body mass index (BMI) [Ratio] 27.8 kg/m2 Suhas Mayoadan Other [facility] Other 05-30-2023 11:00-0500 Body weight 68.95 kg Suhas Ugo Other [facility] Other 05-30-2023 11:00-0500 Diastolic blood pressure 80 mm[Hg] Suhasraquel Garrett Other [facility] Other 05-30-2023 11:00-0500 Respiratory rate 18 /min Suhas Mayoadan Other [facility] Other 05-30-2023 11:00-0500 SaO2% (BldA) [Mass fraction] 96 % Suhas Mayoadan Other [facility] Other 05-30-2023 11:00-0500 Systolic blood pressure 122 mm[Hg] Suhas Ugo Other [facility] Other 02-28-2023 10:30-0400 Body height 157.48 cm Suhas Ugo Other [facility] Other 02-28-2023 10:30-0400 Body mass index (BMI) [Ratio] 27.98 kg/m2 Suhas Ugo Other [facility] Other 02-28-2023 10:30-0400 Body weight 69.4 kg Suhas Garrett Other [facility] Other 02-28-2023 10:30-0400 Diastolic blood pressure 76 mm[Hg] Suhas Garrett Other [employer] Other 02-28-2023 10:30-0400 Respiratory rate 16 /min Suhas Gaeladan Other [employer] Other 02-28-2023 10:30-0400 SaO2% (BldA) [Mass fraction] 91 % Suhas Garrett Other [facility] [employer] Other 02-28-2023 10:30-0400 Systolic blood pressure 134 mm[Hg] Suhas Garrett Other [facility] [employer] Other 12-24-2022 11:32-0400 Body height 157.48 cm Suhas Hoffman Ugo Work Phone: [facility] [employer] 250 DO Work Phone: 12-24-2022 11:32-0400 Body mass index (BMI) [Ratio] 27.07 kg/m2 Suhas Hoffman Ugo Work Phone: [facility] [employer] 250 DO Work Phone: 12-24-2022 11:32-0400 Body surface area Derived from formula 1.68 m2 Suhas Hoffman Ugo Work Phone: [facility] [employer] 250 DO Work Phone: 12-24-2022 11:32-0400 Body weight 67.13 kg Suhas Dalton Garrett Work Phone: [facility] [employer] 250 DO Work Phone: 12-24-2022 11:32-0400 Diastolic blood pressure 76 mm[Hg] Suhas Hoffman Ugo Work Phone: [facility] [employer] 250 DO Work Phone: 12-24-2022 11:32-0400 Heart rate 68 /min Suhas Garrett Work Phone: [facility] [employer] 250 DO Work Phone: 12-24-2022 11:32-0400 Systolic blood pressure 118 mm[Hg] Suhas Garrett Work Phone: [facility] [employer] 250 DO Work Phone: 12-06-2022 10:30-0400 Body height 157.48 cm Suhas Garrett Other [facility] Other 12-06-2022 10:30-0400 Body mass index (BMI) [Ratio] 27.98 kg/m2 Suhas Garrett Other [facility] Other 12-06-2022 10:30-0400 Body weight 69.4 kg Suhas Garrett Other [facility] Other 12-06-2022 10:30-0400 Diastolic blood pressure 70 mm[Hg] Suhas Garrett Other [facility] Other 12-06-2022 10:30-0400 Respiratory rate 16 /min Suhas Garrett Other [facility] Other 12-06-2022 10:30-0400 SaO2% (BldA) [Mass fraction] 98 % Suhas Garrett Other [facility] Other 12-06-2022 10:30-0400 Systolic blood pressure 146 mm[Hg] Suhas Garrett Other [facility] Other 09-20-2022 11:45-0400 Body height 157.48 cm Suhas Garrett Other [facility] Other 09-20-2022 11:45-0400 Body mass index (BMI) [Ratio] 26.34 kg/m2 Suhas aGrrett Other [facility] Other 09-20-2022 11:45-0400 Body weight 65.32 kg Suhas Garrett Other [facility] Other 09-20-2022 11:45-0400 Diastolic blood pressure 70 mm[Hg] Suhas Garrett Other [facility] Other 09-20-2022 11:45-0400 Respiratory rate 16 /min Suhas Garrett Other [facility] Other 09-20-2022 11:45-0400 SaO2% (BldA) [Mass fraction] 98 % Suhas Garrett Other [facility] Other 09-20-2022 11:45-0400 Systolic blood pressure 130 mm[Hg] Suhas Garrett Other [facility] Other 07-22-2022 11:30-0500 Body height 157.48 cm Suhas Garrett Other [facility] Other 07-22-2022 11:30-0500 Body mass index (BMI) [Ratio] 26.85 kg/m2 Suhas Garrett Other [facility] Other 07-22-2022 11:30-0500 Body weight 66.59 kg Suhas Garrett Other [facility] Other 07-22-2022 11:30-0500 Diastolic blood pressure 70 mm[Hg] Suhas Garrett Other [facility] Other 07-22-2022 11:30-0500 Respiratory rate 16 /min Suhas Garrett Other [facility] Other 07-22-2022 11:30-0500 SaO2% (BldA) [Mass fraction] 98 % Suhas Garrett Other [facility] Other 07-22-2022 11:30-0500 Systolic blood pressure 122 mm[Hg] Suhas Garrett Other [facility] Other 04-17-2022 11:45-0500 Body height 157.48 cm Suhas Garrett Other [facility] Other 04-17-2022 11:45-0500 Body mass index (BMI) [Ratio] 26.88 kg/m2 Suhas Garrett Other [facility] Other 04-17-2022 11:45-0500 Body weight 66.68 kg Suhas Garrett Other [facility] Other 04-17-2022 11:45-0500 Diastolic blood pressure 72 mm[Hg] Suhas Garrett Other [facility] Other 04-17-2022 11:45-0500 Respiratory rate 16 /min Suhas Garrett Other [facility] Other 04-17-2022 11:45-0500 SaO2% (BldA) [Mass fraction] 99 % Suhas Garrett Other [facility] Other 04-17-2022 11:45-0500 Systolic blood pressure 138 mm[Hg] Suhas Garrett Other [facility] Other 02-22-2022 10:15-0400 Body height 157.48 cm Suhas Garrett Other [facility] Other 02-22-2022 10:15-0400 Body mass index (BMI) [Ratio] 27.07 kg/m2 Suhas Garrett Other [facility] Other 02-22-2022 10:15-0400 Body weight 67.13 kg Suhas Garrett Other [facility] Other 02-22-2022 10:15-0400 Diastolic blood pressure 70 mm[Hg] Suhas Garrett Other [facility] Other 02-22-2022 10:15-0400 Respiratory rate 16 /min Suhas Garrett Other [facility] Other 02-22-2022 10:15-0400 SaO2% (BldA) [Mass fraction] 97 % Suhas Garrett Other [facility] Other 02-22-2022 10:15-0400 Systolic blood pressure 122 mm[Hg] Suhas Garrett Other [facility] Other 02-21-2022 10:45-0400 70 1 Suhas Garrett Work Phone: [place] [address] Work Phone: Comment on above: [id number] 02-14-2022 15:45-0400 Body height 157.48 cm Suhas Garrett Other [facility] Other 02-14-2022 15:45-0400 Body mass index (BMI) [Ratio] 26.7 kg/m2 Suhas Garrett Other [facility] Other 02-14-2022 15:45-0400 Body weight 66.23 kg Suhas Garrett Other [facility] Other 02-14-2022 15:45-0400 Diastolic blood pressure 72 mm[Hg] Suhas Gaeladan Other [facility] Other 02-14-2022 15:45-0400 Respiratory rate 16 /min Suhas Gaeladan Other [facility] Other 02-14-2022 15:45-0400 SaO2% (BldA) [Mass fraction] 96 % Suhas Mayoadan Other [facility] Other 02-14-2022 15:45-0400 Systolic blood pressure 132 mm[Hg] Suhas Gaeladan Other [facility] Other 12-26-2021 11:04-0400 Body height 157.48 cm Suhas Dalton Garrett Work Phone: [employer] 250 DO Work Phone: 12-26-2021 11:04-0400 Body mass index (BMI) [Ratio] 26.16 kg/m2 Suhas Dalton Garrett Work Phone: [facility] [employer] 250 DO Work Phone: 12-26-2021 11:04-0400 Body surface area Derived from formula 1.66 m2 Suhas Dalton Mayos Work Phone: [facility] [employer] 250 DO Work Phone: 12-26-2021 11:04-0400 Body weight 64.86 kg Suhas Garrett Work Phone: [facility] 250 DO Work Phone: 12-26-2021 11:04-0400 Diastolic blood pressure 68 mm[Hg] Suhas Garrett Work Phone: [facility] 250 DO Work Phone: 12-26-2021 11:04-0400 Heart rate 56 /min Suhas Garrett Work Phone: [facility] 250 DO Work Phone: 12-26-2021 11:04-0400 Systolic blood pressure 126 mm[Hg] Suhas Garrett Work Phone: [facility] 250 DO Work Phone: 12-26-2021 11:00-0400 Diastolic blood pressure 70 mm[Hg] Suhas Garrett Work Phone: [facility] 250 DO Work Phone: 12-26-2021 11:00-0400 Systolic blood pressure 130 mm[Hg] Suhas Garrett Work Phone: [facility] 250 DO Work Phone: 12-13-2021 11:39-0400 Diastolic blood pressure 80 mm[Hg] Suhas Garrett Work Phone: [facility] Work Phone: 12-13-2021 11:39-0400 Systolic blood pressure 170 mm[Hg] Suhas Garrett Work Phone: [facility] Work Phone: 12-13-2021 11:22-0400 Diastolic blood pressure 80 mm[Hg] Suhas Garrett Work Phone: [facility] Work Phone: 12-13-2021 11:22-0400 Systolic blood pressure 158 mm[Hg] Suhas Garrett Work Phone: [facility] Work Phone: 12-13-2021 11:17-0400 Body height 157.48 cm Suhas Garrett Work Phone: [facility] Work Phone: 12-13-2021 11:17-0400 Body mass index (BMI) [Ratio] 26.52 kg/m2 Suhas Garrett Work Phone: [facility] Work Phone: 12-13-2021 11:17-0400 Body surface area Derived from formula 1.67 m2 Suhas Garrett Work Phone: [facility] Work Phone: 12-13-2021 11:17-0400 Body weight 65.77 kg Suhas Garrett Work Phone: [facility] Work Phone: 12-13-2021 11:17-0400 Diastolic blood pressure 80 mm[Hg] Suhas Garrett Work Phone: [facility] Work Phone: 12-13-2021 11:17-0400 Heart rate 60 /min Suhas Garrett Work Phone: [facility] Work Phone: 12-13-2021 11:17-0400 Systolic blood pressure 160 mm[Hg] Suhas Garrett Work Phone: [facility] Work Phone: 10-01-2021 13:30-0400 Body height 157.48 cm Suhas Garrett Other [facility] Other 10-01-2021 13:30-0400 Body mass index (BMI) [Ratio] 26.34 kg/m2 Suhas Garrett Other [facility] Other 10-01-2021 13:30-0400 Body weight 65.32 kg Suhasraquel Garrett Other [facility] Other 10-01-2021 13:30-0400 Diastolic blood pressure 72 mm[Hg] Suhas Ugo Other [facility] Other 10-01-2021 13:30-0400 Respiratory rate 18 /min Suhas Garrett Other [facility] Other 10-01-2021 13:30-0400 SaO2% (BldA) [Mass fraction] 99 % Suhas Garrett Other [facility] Other 10-01-2021 13:30-0400 Systolic blood pressure 130 mm[Hg] Suhas Garrett Other [facility] Other 08-02-2021 13:30-0500 Body height 157.48 cm Suhas Ugo Other [facility] Other 08-02-2021 13:30-0500 Body mass index (BMI) [Ratio] 26.52 kg/m2 Suhas Garrett Other [facility] Other 08-02-2021 13:30-0500 Body weight 65.77 kg Suhas Ugo Other [facility] Other 08-02-2021 13:30-0500 Diastolic blood pressure 70 mm[Hg] Suhas Garrett Other [facility] Other 08-02-2021 13:30-0500 Respiratory rate 16 /min Suhas Garrett Other [facility] Other 08-02-2021 13:30-0500 SaO2% (BldA) [Mass fraction] 99 % Suhasraquel Mayoadan Other [facility] Other 08-02-2021 13:30-0500 Systolic blood pressure 118 mm[Hg] Suhas Ugo Other [facility] Other 04-26-2021 13:30-0500 Body height 157.48 cm Suhas Ugo Other [facility] Other 04-26-2021 13:30-0500 Body mass index (BMI) [Ratio] 25.97 kg/m2 Suhas Garrett Other [facility] Other 04-26-2021 13:30-0500 Body weight 64.41 kg Suhas Garrett Other [facility] Other 04-26-2021 13:30-0500 Diastolic blood pressure 74 mm[Hg] Suhas Garrett Other [facility] Other 04-26-2021 13:30-0500 Respiratory rate 17 /min Suhas Ugo Other [facility] Other 04-26-2021 13:30-0500 SaO2% (BldA) [Mass fraction] 98 % Suhas Garrett Other [facility] Other 04-26-2021 13:30-0500 Systolic blood pressure 120 mm[Hg] Suhas Garrett Other [facility] Other Encounters Encounter Date Encounter Type Care Provider Facility Start: 02-23-2024 End: 02-23-2024 ambulatory Gloria Weston MD Facility: [facility] Start: 02-11-2024 End: 02-11-2024 ambulatory SHY Pathak [facility] Start: 11-24-2023 End: 11-24-2023 ambulatory Gloria Weston MD Facility: [facility] Start: 11-17-2023 End: 11-17-2023 ambulatory Gloria Weston MD Facility:[facility] Start: 10-20-2023 End: 10-20-2023 ambulatory Gloria Weston MD Facility: [facility] Start: 10-14-2023 End: 10-14-2023 ambulatory Suhas Garrett Facility:[facility] Start: 09-29-2023 End: 09-29-2023 ambulatory Gloria Weston MD Facility: [facility] Start: 09-08-2023 End: 09-08-2023 ambulatory Gloria Weston MD Facility: [facility] Start: 09-03-2023 End: 09-03-2023 ambulatory Suhas Garrett Facility:[facility] Start: 08-25-2023 End: 08-25-2023 ambulatory Gloria Weston MD Facility: [facility] Start: 07-18-2023 End: 07-18-2023 ambulatory Suhas Garrett Other [facility] Other Start: 07-18-2023 Telephone encounter Suhas Garrett [facility] Start: 07-15-2023 End: 07-15-2023 ambulatory Suhas Garrett Other [facility] Other Start: 07-15-2023 Telephone encounter Suhas Garrett [facility] Start: 07-10-2023 End: 07-10-2023 ambulatory Suhas Garrett Other [facility] Other Start: 07-10-2023 Telephone encounter Suhas Garrett [facility] Start: 07-08-2023 End: 07-08-2023 ambulatory Suhas Garrett Facility:[facility] Start: 07-07-2023 End: 07-07-2023 ambulatory Suhas Mayoadan Other [facility] Other Start: 07-07-2023 Telephone encounter Suhas [facility] Start: 07-04-2023 End: 07-04-2023 ambulatory Suhas Garrett [employer] Other Start: 07-04-2023 Office outpatient vi sit 15 minutes Suhas Garrett [facility] Start: 06-19-2023 Telephone encounter Suhas Garrett [facility] Start: 06-19-2023 End: 06-19-2023 Office outpatient visit 25 minutes Shy Wolf MD Work Phone: [facility] Comment on above: Aortic valve stenosi s, etiology of cardiac valve disease unspecified; Essential hypertension; Hyperlipidemia, unspecified hyperlipidemia type; Never smoked any substance Start: 06-19-2023 End: 06-19-2023 ambulatory SHY WOLF [facility] Other Start: 05-30-2023 End: 05-30-2023 ambulatory Suhas Garrett Other [facility] Other Start: 05-30-2023 Office outpatient vi sit 25 minutes Suhas Garrett [facility] Start: 05-28-2023 End: 05-28-2023 ambulatory Suhas Garrett Other [facility] Other Start: 05-28-2023 Telephone encounter Suhas Garrett [facility] Start: 04-23-2023 End: 04-23-2023 ambulatory Suhas Garrett Other [facility] Other Start: 04-23-2023 Telephone encounter Suhas Garrett [facility] Start: 04-18-2023 End: 04-18-2023 ambulatory Suhas Garrett Other [facility] Other Start: 04-18-2023 Telephone encounter Suhas Garrett [facility] Start: 03-02-2023 Chart Update Suhas Garrett Work Phone: [facility] [address] DO Work Phone: Start: 02-28-2023 End: 02-28-2023 ambulatory Suhas Garrett Other [employer] Other Start: 02-28-2023 Office outpatient vi sit 15 minutes Suhas Garrett [facility] Start: 02-26-[address] Suhas Garrett Facility:[id number] Start: 01-27-2023 End: 01-27-2023 ambulatory Suhas Garrett Other [facility] [employer] Other Start: 01-27-2023 Telephone encounter Suhas Garrett [facility] Start: 12-24-2022 Office outpatient vi sit 25 minutes Suhas Garrett Work Phone: [facility] [address] DO Work Phone: Start: 12-24-[address] Shy Parkahim Facility: Start: 12-06-2022 End: 12-06-2022 ambulatory Suhas Garrett Other [employer] Other Start: 12-06-2022 Office outpatient vi sit 15 minutes Suhas Garrett [facility] Start: 09-20-2022 End: 09-20-2022 ambulatory Suhas Garrett Other [facility] Other Start: 09-20-2022 Office outpatient vi sit 15 minutes Suhas Garrett [facility] Start: 08-14-2022 End: 08-14-2022 ambulatory Suhas Kuns Other [facility] Other Start: 08-14-2022 Telephone encounter Suhas Mayos [facility] Start: 07-22-2022 End: 07-22-2022 ambulatory Suhasraquel Mayos Other [facility] Other Start: 07-22-2022 Office outpatient vi sit 15 minutes Suhas Gaels [facility] Start: 04-17-2022 End: 04-17-2022 ambulatory Suhas Gaels Other [facility] Other Start: 04-17-2022 Office outpatient vi sit 15 minutes Suhas Gaels [facility] Start: 04-10-2022 End: 04-10-2022 ambulatory Suhas Gaels Other [facility] Other Start: 04-10-2022 Telephone encounter Suhas Mayos [facility] Start: 04-03-2022 End: 04-03-2022 ambulatory Suhasraquel Mayos Other [facility] Other Start: 04-03-2022 Telephone encounter Suhas Mayos [facility] Start: 04-02-2022 End: 04-02-2022 ambulatory Suhas Gaels Other [facility] Other Start: 04-02-2022 Telephone encounter Suhasraquel Mayos [facility] Start: 02-26-2022 End: 02-26-2022 ambulatory Suhasraquel Mayos Other [facility] Other Start: 02-26-2022 Telephone encounter Suhasraquel Mayos [facility] Start: 02-25-2022 End: 02-25-2022 ambulatory Suhas Mayos Other [facility] Other Start: 02-25-2022 Telephone encounter Suhas Garrett [facility] Start: 02-22-2022 End: 02-22-2022 ambulatory Suhas Garrett Other [facility] Other Start: 02-22-2022 Office outpatient vi sit 25 minutes Suhas Garrett [facility] Start: 02-21-2022 Patient encounter procedure Suhas Garrett Work Phone: [facility] [address] [place] Work Phone: Start: 02-20-2022 End: 02-21-2022 ambulatory MAYO CARBAJAL Facility: Start: 02-14-2022 End: 02-14-2022 ambulatory Suhas Garrett Other [employer] Other Start: 02-14-2022 Office outpatient vi sit 25 minutes Suhas Garrett [facility] Start: 01-11-2022 End: 01-11-2022 ambulatory Suhas Garrett Other [facility] Other Start: 01-11-2022 Nursing evaluation o f patient and report Suhas Garrett [facility] Start: 01-11-2022 Telephone encounter Suhas Garrett [facility] Start: 12-26-2021 Office outpatient vi sit 10 minutes Suhas Garrett Work Phone: [facility] 250 DO Work Phone: Start: 12-26-[address] Suhas Garrett Facility: Start: 12-20-2021 End: 12-20-2021 ambulatory Suhas Garrett Other [employer] Other Start: 12-20-2021 Telephone encounter Suhas Garrett [facility] Start: 12-13-2021 Office outpatient vi sit 25 minutes Suhas Garrett Work Phone: [facility] Work Phone: Start: 11-02-2021 End: 11-02-2021 ambulatory Suhas Mayos Other [facility] Other Start: 11-02-2021 Telephone encounter Suhas Mayos [facility] Start: 10-01-2021 End: 10-01-2021 ambulatory Suhas Mayos Other [facility] Other Start: 10-01-2021 Office outpatient vi sit 15 minutes Suhas Mayos [facility] Start: 09-10-2021 End: 09-10-2021 ambulatory Suhas Mayos Other [facility] Other Start: 09-10-2021 Telephone encounter Suhas Garrett [facility] Start: 08-20-2021 End: 08-20-2021 ambulatory Suhas Mayos Other [facility] Other Start: 08-20-2021 Telephone encounter Suhas Gaels [facility] Start: 08-02-2021 End: 08-02-2021 ambulatory Suhas Mayos Other [facility] Other Start: 08-02-2021 Office outpatient vi sit 15 minutes Suhas Mayos [facility] Start: 07-25-2021 End: 07-25-2021 ambulatory Suhas Mayos Other [facility] Other Start: 07-25-2021 Telephone encounter Suhas Gaels [facility] Start: 05-08-2021 End: 05-08-2021 ambulatory Suhas Mayos Other [facility] Other Start: 05-08-2021 Telephone encounter Suhas Mayos [facility] Start: 04-26-2021 End: 04-26-2021 ambulatory Suhas Garrett Other [facility] Other Start: 04-26-2021 Office outpatient vi sit 25 minutes Suhas [facility] Procedures Date Procedure Procedure Detail 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 [...] DTaP/Tdap/Td Vaccines (2 - Td or Tdap) [facility] Start: 03-16-2024 End: 03-16-2024 Patient encounter procedure 03/16/2024 11:20 AM EDT Office Visit [facility] [address] [place] [id number] Shy Wolf MD [address] [facility] [address] [place] [address] [facility] Start: 02-11-2024 End: 02-11-2024 Patient encounter procedure 02/11/2024 12:30 PM EDT Appointment [facility] [address] [place] [id number] [facility] Start: 02-08-2024 End: 06-19-2025 Heart Transthoracic Transthoracic Echo (TTE) Complete Echocardiography Routine Aortic valve stenosis, etiology of cardiac valve disease unspecified Expected: 02/08/2024 (Approximate), Expires: 06/19/2025 [facility] Service Area Work Phone: Comment on above: Expected: 02/08/2024 (Approximate), Expires: 06/19/2025 Start: 06-19-2023 FUV, Provider: Shy Wolf, Status: Pen, Time: 11:00 AM FUV, Provider: Shy Wolf, Status: Pen, Time: 11:00 AM [facility] 250 DO Work Phone: Start: 05-28-2023 COVID-19 Vaccine (5 - Moderna series) COVID-19 Vaccine (5 - Moderna series) [facility] Start: 02-26-2023 ECHO, Provider: SAMUEL HHVI ULTRASOUND 01,[id number], Status: Pen, Time: 10:45 AM ECHO, Provider: SAMUEL HHVI ULTRASOUND 01,[id number], Status: Pen, Time: 10:45 AM [facility] 250 DO Work Phone: Start: 12-24-2022 FUV, Provider: Shy Wolf, Status: Pen, Time: 11:20 AM FUV, Provider: Shy Wolf, Status: Pen, Time: 11:20 AM [facility] Work Phone: Start: 02-21-2022 CAROTID, Provider: SAMUEL HHVI ULTRASOUND 01,[id number], Status: Pen, Time: 12:30 PM CAROTID, Provider: SAMUEL HHVI ULTRASOUND 01,[id number], Status: Pen, Time: 12:30 PM [facility] Work Phone: Start: 02-21-2022 ECHO, Provider: SAMUEL HHVI ULTRASOUND 01,[id number], Status: Pen, Time: 10:45 AM ECHO, Provider: SAMUEL HHVI ULTRASOUND 01,[id number], Status: Pen, Time: 10:45 AM [facility] Work Phone: Start: 01-17-2022 CAROTID, Provider: SAMUEL HHVI ULTRASOUND 01,[id number], Status: Pen, Time: 2:30 PM CAROTID, Provider: SAMUEL YII ULTRASOUND 01,[id number], Status: Pen, Time: 2:30 PM [facility] Work Phone: Start: 01-17-2022 ECHO, Provider: SAMUEL YII ULTRASOUND 01,[id number], Status: Pen, Time: 1:30 PM ECHO, Provider: SAMUEL YII ULTRASOUND 01,[id number], Status: Pen, Time: 1:30 PM [facility] Work Phone: Start: 12-26-2021 NURSEVST, Provider: MAGDA DANIEL PLATING OPERATOR 1,[id number], Status: Pen, Time: 11:00 AM NURSEVST, Provider: MAGDA DANIEL PLATING OPERATOR 1,[id number], Status: Pen, Time: 11:00 AM [facility] Work Phone: Start: 1935 Lipid panel Lipid Panel [facility] Start: 1935 Medicare Annual Wellness Visit Medicare Annual Wellness Visit (AWV) [facility] Start: 1935 Thyroid stimulating hormone measurement TSH Level [facility] Immunizations Immunization Date Immunization Notes Care Provider Fa cility 04-17-2022 Moderna COVID-19 Bivalent 50 MCG/0.5ML Intramuscular Suspension Suhas Garrett Work Phone: [facility] [address] DO Work Phone: 03-21-2022 Fluad Quadrivalent 0 .5 ML Intramuscular Prefilled Syringe Suhas Garrett Work Phone: [facility] [address] DO Work Phone: 03-21-2022 influenza, seasonal, injectable Suhas Garrett Other [facility] [employer] Other 11-14-2021 Moderna COVID-19 Vaccine 100 MCG/0.5ML Intramuscular Suspension Suhas Garrett Work Phone: [facility] Work Phone: 04-05-2021 Moderna COVID-19 Vaccine 100 MCG/0.5ML Intramuscular Suspension Suhas P Gaels Work Phone: [facility] Work Phone: 03-19-2021 influenza, seasonal, injectable Suhas Gaels Other [facility] Other 08-08-2020 Moderna COVID-19 Vaccine 100 MCG/0.5ML Intramuscular Suspension Suhas P Gaels Work Phone: [facility] Work Phone: 07-11-2020 Moderna COVID-19 Vaccine 100 MCG/0.5ML Intramuscular Suspension Suhas P Gaels Work Phone: [facility] Work Phone: 04-28-2020 pneumococcal polysaccharide vaccine, 23 valent Suhas Garrett Other [facility] Other 03-06-2020 Seasonal trivalent influenza vaccine, adjuvanted, preservative free Suhas Garrett Work Phone: [facility] Work Phone: 03-06-2020 influenza, seasonal, injectable Suhas Mayos Other [facility] Other 02-08-2020 influenza virus vaccine, unspecified formulation Suhas Garrett Work Phone: [facility] Work Phone: 02-08-2020 influenza, seasonal, injectable Suhas Mayos Other [facility] Other 05-04-2019 zoster vaccine recombinant Suhas Garrett Other [facility] Other 03-09-2019 influenza, high dose seasonal, preservative-free Suhas P Kuns Work Phone: [facility] Work Phone: 03-04-2019 influenza, seasonal, injectable Suhas Mayos Other [facility] Other 02-04-2019 zoster vaccine recombinant Suhas Garrett Other [facility] [employer] Other 05-12-2018 tetanus toxoid, redu bety diphtheria toxoid, and acellular pertussis vaccine, adsorbed Suhas Garrett Other [employer] Other 03-16-2018 Seasonal trivalent influenza vaccine, adjuvanted, preservative free Shy Wolf MD Work Phone: [facility] Work Phone: 03-09-2018 influenza virus vaccine, unspecified formulation Suhas Garrett Work Phone: [facility] Work Phone: 04-09-2017 influenza virus vaccine, unspecified formulation Suhas Garrett Work Phone: [facility] Work Phone: 03-28-2017 Seasonal trivalent influenza vaccine, adjuvanted, preservative free Suhas Garrett Work Phone: [facility] Work Phone: 05-23-2016 pneumococcal conjuga te vaccine, 13 valent Suhas Garrett Other [facility] [employer] Other 04-01-2016 Seasonal trivalent influenza vaccine, adjuvanted, preservative free Suhas Garrett Work Phone: [facility] Work Phone: 03-09-2016 influenza virus vaccine, unspecified formulation Suhas Garrett Work Phone: [facility] Work Phone: 03-09-2016 pneumococcal conjuga te vaccine, 13 valent Suhas Garrett Work Phone: [facility] Work Phone: 04-07-2015 influenza, injectabl e, quadrivalent, contains preservative Suhas Garrett Work Phone: [facility] Work Phone: 03-09-2015 influenza virus vaccine, unspecified formulation Suhas Garrett Work Phone: [facility] Work Phone: 04-05-2014 influenza, seasonal, injectable, preservative free Suhas Garrett Work Phone: [facility] Work Phone: 03-09-2014 influenza virus vaccine, whole virus Suhas Garrett Work Phone: [facility] Work Phone: 03-23-2013 influenza, seasonal, injectable Suhas Garrett Work Phone: [facility] Work Phone: 03-09-2013 influenza virus vaccine, unspecified formulation Suhas Garrett Work Phone: [facility] Work Phone: 04-14-2012 influenza, injectabl e, quadrivalent, contains preservative Suhas Garrett Other [facility] [employer] Other 06-09-2011 influenza virus vaccine, unspecified formulation Suhas Garrett Work Phone: [facility] Work Phone: 06-09-2010 influenza virus vaccine, unspecified formulation Suhas Garrett Work Phone: [facility] Work Phone: 06-09-2009 influenza virus vaccine, unspecified formulation Suhas Garrett Work Phone: [facility] Work Phone: 05-30-2009 novel [id number], preservative-free, injectable Suhas Garrett Work Phone: [facility] Work Phone: 10-19-2007 varicella virus vaccine Belkys Garrett Work Phone: [facility] Work Phone: 06-09-2006 pneumococcal polysaccharide vaccine, 23 valent Suhas Garrett Work Phone: [facility] Work Phone: Payers Date Payer Category Payer Self-pay 2022 Private Health Insurance [id number] 2001 Medicare MEDICARE MEDICAR E RAILROAD [id number] 2001-Present [address] [place] [address] [id number] 2001 Unknown 1959 Medicare [id number] 1959 Private Health Insurance [id number] 1936 Unknown [id number] .593 1936 Unknown [id number] [id number] .356 1936 Unknown [id number] [id number] .356 1936 Unknown [id number] [id number] .1068 1936 Unknown [id number] [id number] .1244 1936 Unknown [id number] [id number] .1246 1936 Unknown [id number] [id number] .196 1936 Unknown [id number] [id number] .196 1936 Unknown [id number] 2.16.840.1.502617.3.579.2 .196 1936 Unknown [id number] 2.16.840.1.406135.3.579.2 .196 1936 Unknown [id number] 2.16.840.1.386840.3.579.2 .196 1936 Unknown [id number] 2.16.840.1.076451.3.579.2 .196 1936 Unknown [id number] 2.16.840.1.880597.3.579.2 .196 Unknown [id number] 2.16.840.1.160878.3.579.2 .531 Unknown [id number] 2.16.840.1.543996.3.579.2 .531 Unknown [id number] [id number] .531 Unknown [id number] [id number] .531 Social History Date Type Detail Facility Unknown if ever smoked [facility] [employer] Other Start: 06-19-2023 Sex Assigned At [facility] [employer] Other Start: 06-19-2023 Caffeine use Caffeine use [facility] Work Phone: Start: 06-19-2023 Tobacco smoking status NHIS Never smoked tobacco [facility] Work Phone: Start: 06-19-2023 Tobacco use and exposure Smokeless tobacco non-user [facility] Work Phone: Start: 1935 [facility]: Start: 06-09-2023 End: 06-19-2023 Exposure to SARS-CoV-2 (event) Not sure [facility] Clinical Notes 02-15-2015 to 07-18-2023 Note Date & Type Note Facility 07-18-2023 Evaluation note Encounter Date Diagnosis Assessment Notes Jul, PMR (polymya lgia rheumati ca) (ICD-10 - M35.3) [facility] Other 02-06-2024 Evaluation note* Encounter Date Diagnosis Assessment Notes Treatment Notes Treatment Clinical Notes Jul, PMR (polymyalgia rheumatica) (ICD-10 - M35.3) [facility] Other 02-01-2024 Evaluation note* Encounter Date Diagnosis Assessment Notes Treatment Notes Treatment Clinical Notes Jul, Hypothyroidism (ICD-10 - E03.9) [facility] Other 01-29-2024 Evaluation note* Encounter Date Diagnosis Assessment Notes Treatment Notes Treatment Clinical Notes Jun, Hypothyroidism (ICD- 10 - E03.9) Jun, Hyperthyroidism (ICD-10 - E05.90) [facility] Other 01-26-2024 Evaluation note* Encounter Date Diagnosis [...] medications in combination with eachother. Also discussed termite exterminator helper steriod use in regards to her condition. [...] requires sooner she is welcome to call. [facility] Other 01-11-2024 Evaluation note* Encounter Date Diagnosis Assessment Notes Treatment Notes Treatment Clinical Notes Jun, PMR (polymyalgia rheumatica) (ICD-10 - M35.3) [facility] Other 01-11-2024 History of Present illness Narrative* [...] is being tapered gradually Shy Wolf MD, [facility] Review of Systems All other systems reviewed [...] Attestation By signing my name below, Mai Sparsk LPN , Scribe attest that this documentation has been prepared under the direction and in the presence of Shy Wolf MD. documented in this [facility] Work Phone: [phone]) 236-728801-11-2024 Instructions* Patient Instructions* Yevgeniy Cortez MA - [...] time of your visit. documented in this [facility] Work Phone: [phone]) 813-880612-22-2023 Evaluation note* Encounter Date Diagnosis Assessment Notes [...] recommend the patient get the RSV vaccine. [facility] Other 12-20-2023 Evaluation note* Encounter Date Diagnosis Assessment Notes Treatment Notes Treatment Clinical Notes May, Hypertension (ICD-10 - I10) May, Hypothyroidism (ICD-10 - E03.9) [facility] Other 11-10-2023 Evaluation note* Encounter Date Diagnosis Assessment Notes Treatment Notes Treatment Clinical Notes Apr, PMR (polymyalgia rheumatica) (ICD-10 - M35.3) [facility] Other 09-22-2023 Evaluation note* Encounter Date Diagnosis Assessment Notes Treatment Notes Treatment Clinical Notes Feb, PMR (polymyalgia rheumatica) (ICD-10 - M35.3) She was encouraged to take 2.5mg daily. Patient is agreeable. Feb, Hypertension (ICD-10 - I10) Blood pressure is satisfactory, she is to follow with cardiology as scheduled. [facility] Other 08-21-2023 Evaluation note* Encounter Date Diagnosis Assessment Notes Treatment Notes Treatment Clinical Notes Jan, Hypertension (ICD-10 - I10) [facility] Other 06-30-2023 Evaluation note* Encounter Date Diagnosis [...] very [facility] She will see Dr. Wolf in three weeks therefore was advised to make sure she discusses the swelling with him and see what he would like to do. Patient is agreeable. [facility] Other 04-14-2023 Evaluation note* Encounter Date Diagnosis [...] tablets daily. We will continue to monitor. [facility] Other 03-08-2023 Evaluation note* Encounter Date Diagnosis Assessment Notes Treatment Notes Treatment Clinical Notes Aug, PMR (polymyalgia rheumatica) (ICD-10 - M35.3) [facility] Other 02-13-2023 Evaluation note* Encounter Date Diagnosis [...] states she has an upcoming appointment with construction carpenters helper and she will discuss making medication changes at that time. [facility] Other 11-09-2022 Evaluation note* Encounter Date Diagnosis [...] can cut Apr, Hyperlipidemia (ICD-10 - E78.5) [facility] Other 11-02-2022 Evaluation note* Encounter Date Diagnosis Assessment Notes Treatment Notes Treatment Clinical Notes Apr, PMR (polymyalgia rheumatica) (ICD-10 - M35.3) [facility] Other 10-26-2022 Evaluation note* Encounter Date Diagnosis Assessment Notes Treatment Notes Treatment Clinical Notes Mar, Lumbar back pain (ICD-10 - M54.50) [facility] Other 09-20-2022 Evaluation note* Encounter Date Diagnosis Assessment Notes Treatment Notes Treatment Clinical Notes Feb, Elevated liver function tests (ICD-10 - R79.89) [facility] Other 09-16-2022 Evaluation note* Encounter Date Diagnosis Assessment Notes Treatment Notes Treatment Clinical Notes Feb, Acute pain of left shoulder (ICD-10 - M25.512) [facility] report reviewed from 02/20/22 . The [...] pain (ICD-10 - R10.13) The patient advised [place] could be causing her GI upset , [...] month [place] at her next office visit. [facility] Other 09-08-2022 Evaluation note* Encounter Date Diagnosis [...] (ICD-10 - M85.80) Noted on Lumbar x-ray. [facility] Other 08-05-2022 Evaluation note* Encounter Date Diagnosis Assessment Notes Treatment Notes Treatment Clinical Notes Jan, COVID-19 (ICD-10 - U07.1) [facility] Other 08-05-2022 Evaluation note* Encounter Date Diagnosis Assessment Notes Treatment Notes Treatment Clinical Notes Jan, Cough (ICD-10 - R05.9) In house covid test is positive. Treatment plan discussed in TE. [facility] Other 07-14-2022 Evaluation note* Encounter Date Diagnosis Assessment Notes Treatment Notes Treatment Clinical Notes Dec, PMR (polymyalgia rheumatica) (ICD-10 - M35.3) [facility] Other 05-27-2022 Evaluation note* Encounter Date Diagnosis Assessment Notes Treatment Notes Treatment Clinical Notes October, PMR (polymyalgia rheumatica) (ICD-10 - M35.3) [facility] Other 04-25-2022 Evaluation note* Encounter Date Diagnosis [...] The patient encourged to continue following with construction carpenters helper annually in December as scheduled. I did forward a copy of most current blood work results . [facility] Other 04-04-2022 Evaluation note* Encounter Date Diagnosis Assessment Notes Treatment Notes Treatment Clinical Notes Sep, PMR (polymyalgia rheumatica) (ICD-10 - M35.3) Sep, Hypertension (ICD-10 - I10) [facility] Other 02-24-2022 Evaluation note* Encounter Date Diagnosis [...] if needed. We will continue to montior. [facility] Other 02-16-2022 Evaluation note* Encounter Date Diagnosis Assessment Notes Treatment Notes Treatment Clinical Notes Jul, PMR (polymyalgia rheumatica) (ICD-10 - M35.3) [facility] Other 11-30-2021 Evaluation note* Encounter Date Diagnosis Assessment Notes Treatment Notes Treatment Clinical Notes Apr, PMR (polymyalgia rheumatica) (ICD-10 - M35.3) [facility] Other 11-18-2021 Evaluation note* Encounter Date Diagnosis [...] Hypothyroidism (ICD-10 - E03.9) Blood work ordered. [facility] Other [id number] History general Narrative - Reported* Type Description Date Medical History Shingles Medical History 02-15-15-mammogram-negativ e Medical History 01/[id number]-nbxtkcifocw-errkbk, repea t in 3 yrs Medical History 03/2017- colonoscopy- normal Medical History f/u with cardiology [facility] Medical History ECHO 09/2016 Surgical History Appendectomy Surgical History Gallbladder Removal Surgical History Ovarian Cyst Removal Surgical History Coccyx repair Surgical History Cataracts Bilateral Eyes Surgical History thyroidectomy Dr. Forbes 10/14/2019 Hospitalization History Childbirth x5 Hospitalization History See Above [facility] Other Evaluation noteNo InformationNortZ[employer] Other Evaluation note* Diagnosis Aortic valve stenosis, etiology of cardiac valve disease unspecified Essential hypertension Unspecified essential hypertension Hyperlipidemia, unspecified hyperlipidemia type Never smoked any substance documented in this encounter [facility] Work Phone: Chief Complaint * [...] being tapered gradually * Shy Wolf MD, [facility] Family History No Family History Records FoundUnknown [...] (M35.3) Referral Organization [facility] Referring Provider First Name Suhas Referring Provider Last Name Ugo Referring Provider Specialty Family Prac sukhjinder Referred Organization [facility] Referred Address [address] [place] [id number] Referred Provider Specialty Rheumatology Referral Priority Routine General Notes Zaida Tinsley 10:11:01 AM >received today, completed referral form and faxed to their referring physicians department. Patient will be contacted by the CC to schedule her appointment. Specialty Diagnoses / Procedures Referred By Contac t Referred To Contact Cardiology Diagnoses Aortic valve stenosis, etiology of cardiac valve disease unspecified Procedures Transthoracic Echo (TTE) Complete [place] ECHO TTHRC R-T 2D W/WOM-MODE COMPL SPEC&COLR D Shy Wolf MD [facility], [address] [address] Referral ID Status Reason Start Date Expiration Date Visits Requested Visits Authorized [id number] Pending Review Perform Procedure 06/19/2023 06/18/2024 1 1 Specialty Diagnoses / Procedures Referred By Alberto jiménez Referred To Contact Cardiology Diagnoses Aortic valve stenosis, etiology of cardiac valve disease unspecified Procedures Follow Up In Cardiology Shy Wolf MD [facility], [place] [address] [place] [id number] Shy Wolf MD [facility], [place] [address] [id number] Referral ID Status Reason Start Date Expiration Date V isits Requested Visits Authorized [id number] Authorized 06/19/2023 06/18/2024 1 1 Additional Source Comments REASON FOR VISIT (unrecogniz ed section and content) Reason Comments Follow-up 6m INFORMATION SOURCE (unrecogn ized section and content) DATE CREATED AUTHOR 03/06/2022 [facility] DATE CREATED AUTHOR AUTHOR'S ORGANIZ ATION 12/25/2022 [facility] DATE CREATED AUTHOR AUTHOR'S ORGANIZ ATION 12/25/2022 [facility] DATE CREATED AUTHOR AUTHOR'S ORGANIZ ATION 03/03/2023 [facility] DATE CREATED AUTHOR AUTHOR'S ORGANIZ ATION 10/15/2023 [facility] DATE CREATED AUTHOR AUTHOR'S ORGANIZ ATION 02/16/2024 [facility] DATE CREATED AUTHOR AUTHOR'S ORGANIZ ATION 02/17/2024 [facility] DATE CREATED AUTHOR AUTHOR'S ORGANIZ ATION 02/29/2024 [facility] Care Teams (unrecognized sec tion and content) X Ray Operator Relationship Specialty Start Date End Date Suhas [...] BE BASED ON THE PRIMARY CLINICAL RECORDS. [facility]. provides no warranty or guarantee of the accuracy or completeness of information in this document.
--- NOTE | 2024-03-03 12:57 | MR_ITS ---
The [address] [address] Patient Name: LAVONNE VILLATORO MRN: [id number] date: 1935 Sex: F Assigned Patient Location: MRI Current Patient Location: Accession/Order Number: [id number] Exam Date: 03/03/2024 13:10 Report Date: 03/04/2024 09:12 At the request of: BAILEY REEVES Procedure: MR cervical spine wo con MR cervical spine wo con, 03/03/2024 1:10 PM EDT INDICATION: cervical stenosis with neuro claudication COMPARISON: Prior x-ray of cervical spine dated 08/29/2023 TECHNIQUE: Multiplanar, multisequential MRI images of cervical spine were obtained without contrast. FINDINGS: There is normal physiologic cervical lordosis. The vertebral heights are relatively preserved. The cervicomedullary junction is unremarkable. No definite signal abnormality within the spinal cord is noted. There are mild disc osteophyte complex associated with uncovertebral joint arthrosis from C3 to T1 contributing to neuroforaminal and canal stenosis. At the level of C2-C3, there is no neuroforaminal narrowing or canal stenosis. At the level of C3-C4, there is mild bilateral neuroforaminal narrowing and no canal stenosis. At the level of C4-C5, there is no neuroforaminal narrowing and mild canal stenosis. At the level of C5-C6, there is mild bilateral neuroforaminal narrowing and mild canal stenosis. At the level of C6-C7, there is no neuroforaminal narrowing and mild canal stenosis. Level of C7-T1 is unremarkable. No definite muscular or ligamentous injury is noted. 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 Electronically authenticated by: RASHIDA DOMINGUEZ Date: 03/04/2024 09:12
== END 2024-03-03 12:48 | disposition home or self-care (01) ==
LOC: MRI 12:47
PROVIDERS: PCP Family Medicine; Visit Provider Anesthesiology
DX: M48.02 Spinal stenosis, cervical region (principal); M50.30 Other cervical disc degeneration, unspecified cervical region
CPT/HCPCS: 72141

== ENCOUNTER 2024-03-10 10:13 | Outpatient (OUT) | payer MEDICARE, OTHER, SELFPAY ==
--- NOTE | 2024-03-10 10:37 | P.CN_ITS ---
Consult Note: HPI Data of Consult Patient: known to practice within the last 3 years Consult date: 02/23/24 Requesting Physician: Norma Jimenez NP Primary Care Provider: Suhas Arizmendi DO Consult Narrative Reason for consult: neck, bilateral arm pain Narrative: 88yof who presents for assessment. worsening neck and bilateral upper extremity pain. cervical xr consistent with multilevel degenerative changes, cx mri shows multilevel degenerative changes with foraminal and central stenosis C5-6 C6-7. continues in provider directed home exercise program >6 weeks, with no benefit. has tried tylenol, tramadol, norco, butrans without benefit. failed OTC NSAIDs. following with rheumatology for PMR and on prednisone 10mg daily cc:: CC: Norma Jimenez NP Review of Systems ROS Status of ROS 10 or more systems reviewed and unremark able except as noted in history and below Musculoskeletal Reports: neck pain and extremity pain PFSH PFSH Medical History Polymyalgia rheumatica ?M35.3 - Polymyalgia rheumatica (ICD-10) Hyperthyroidism ?E05.90 - Thyrotoxicosis, unspecified without thyrotoxic crisis or storm (ICD-10) Heart murmur ?R01.1 - Cardiac murmur, unspecified (ICD-10) HTN (hypertension) ?I10 - Essential (primary) hypertension (ICD-10) Surgical History 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 - Postprocedural hypothyroidism (ICD-10) Hx of cholecystectomy ?Z90.49 - Acquired absence of other specified parts of digestive tract (ICD- 10) History of ovarian cystectomy ?Z98.890 - Other specified postprocedural states (ICD-10) ?Z87.42 - Personal history of other diseases of the female genital tract (ICD-10) History of appendectomy ?Z90.49 - Acquired absence of other specified parts of digestive tract (ICD- 10) Meds Home Medications and Allergies Home Medications ?Medication ?Instructions ?Recorded ?Confirmed ?Type acetaminophen 650 mg 650 mg PO Q8H PRN pain 08/25/23 11/24/23 History tablet,extended release (8 Hour Pain Reliever) amlodipine 10 mg tablet (Norvasc) 10 mg PO DAILY 08/25/23 11/24/23 History aspirin 81 mg capsule 81 mg PO DAILY 08/25/23 11/24/23 History carvedilol 6.25 mg tablet 6.25 mg PO Q12H 08/25/23 11/24/23 History levothyroxine 100 mcg tablet 100 mcg PO DAILY 08/25/23 11/24/23 History losartan 100 1 tab PO DAILY 08/25/23 11/24/23 History mg-hydrochlorothiazide 12.5 mg tablet multivitamin (Daily Multi-Vitamin 1 tab PO DAILY 08/25/23 11/24/23 History tablet) omega 5-vxp-igw-fish oil 1,000 mg 1 cap PO DAILY 08/25/23 11/24/23 History (120 mg-180 mg) capsule (Fish Oil) calcium carbonate (Calcium 600) 600 mg PO DAILY 09/29/23 11/24/23 History prednisone 2.5 mg tablet mg 11/17/23 History oxycodone-acetaminophen 5 mg-325 1 tab PO BID PRN pain #60 tabs 02/23/24 Rx mg tablet (Percocet) Allergies Allergy/AdvReac Type Severity Reaction Status Date / Time amoxicillin Allergy Mild Rash Verified 11/24/23 11:09 divalproex sodium Allergy Unknown Verified 11/24/23 11:09 [From Depakote] hydrocodone Allergy Unknown Verified 11/24/23 11:09 phenytoin [From Dilantin] Allergy Unknown Verified 11/24/23 11:09 alendronate sodium AdvReac eye pain Verified 11/24/23 11:09 [From Fosamax] Exam Narrative Exam Narrative: Psych-alert and oriented x 3.? Attentive and appropriate, constitutionally normal, displays normal mood and affect per situation.? There are no obvious deficits in memory, reasoning, or intellect.? Skin-no obvious rashes, bruising, or erythema noted to the patient's area of pain.? Extremities-upper extremities are warm with minimal edema and palpable pulses. Cervical- tenderness to palpation noted in the cervical spine and paraspinal musculature.? Pain is elicited with flexion, extension, and lateral rotation of the cervical spine.? Range of motion is diminished due to pain. Facet loading maneuvers are positive. Strength-unremarkable and within normal limits with the exception to the bilateral biceps, triceps. Sensory-no notable sensory deficits in the bilateral upper extremities to touch or pinprick with the exception to decreased sensation to the bilateral C5, 6, 7 dermatomal distribution.? Coordination remains intact.? Gait remains non-antalgic. Assessment and Plan Assessment and Plan (1) Cervical stenosis of spinal canal: (2) Cervical spondylosis: (3) Osteoarthritis of shoulders, bilateral: (4) Generalized OA: (5) Polymyalgia rheumatica: (6) Chronic use of opiate drug for therapeutic purpose: Assessment and Plan: WIN 12% pain well controlled with current regimen I feel these medications are improving the patient's quality of life and allow them to tolerate activities of daily living as well as participate in recreational activity.? The patient does not report intolerable side effects. The patient is NOT opioid naive and non-pharmacologic and non-opioid treatment has failed to significantly relieve the patient's pain and improve functionality. The patient has a diagnosis that is related to a somatic or visc eral pain etiology. ? ?? I reviewed with the patient the potential risks and side effects with the use of? opioid medications including but not limited to respiratory depression,? sedation, and even . I verified the patient has access to naloxone should? these effects occur. I advised the patient to avoid the use of any other? sedation substances including alcohol, THC, and benzodiazepines while? taking opioid medications due to the risk of compounding side effects and? detrimental outcomes. 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 drug screen, and opioid start talking forms. The patient was advised to let? their family know they had Naloxone in case they would need to administer? the medication.? ?? A drug screen was completed within the last year, and no aberrancies were noted regarding their use of controlled substances. The patient understands they are subject to the terms and conditions of the pain contract that they have signed. ? ?? I have checked an [place] report on this patient today and there are no aberrancies noted in the prescribing history.? Plan continue current medications declining injection therapy at this time as pain is well controlled continue f/u with Rheumatology f/u 3 months, sooner if needed
== END 2024-03-10 10:14 | disposition home or self-care (01) ==
LOC: PM 10:14
PROVIDERS: PCP Family Medicine; Visit Provider Nurse Practitioner
DX: M47.812 Spondylosis without myelopathy or radiculopathy, cervical region (principal); M48.02 Spinal stenosis, cervical region; M19.012 Primary osteoarthritis, left shoulder; M19.011 Primary osteoarthritis, right shoulder; M19.90 Unspecified osteoarthritis, unspecified site; M35.3 Polymyalgia rheumatica; Z79.899 Other long term (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
CPT/HCPCS: G0463

== ENCOUNTER 2024-06-10 10:00 | Outpatient (OUT) | payer MEDICARE, OTHER, SELFPAY ==
--- OUTSIDE RECORDS SUMMARY | 2024-06-10 10:16 | XMS_ITS | CCD ---
Author Organization [facility] Care Team Providers Care Proposal Coordinator Name Role Phone Suhas Garrett Unavailable Suhas Garrett Unavailable Unavailable Unavailable MAYO CARBAJAL Consulting Unavailable UGO, DR BAIRD Primary Care Unavailable WALT VELIZ Attending Unavailable WALT VELIZ Admitting Unavailable Ugo, Dr. Suhas Liang Primary Care Unavaila ria Wolf, Dr. Shy Agosto Referring Radha vailable Luciano, Dr. Shy Agosto Attending Radha vailable Luciano, Dr. Shy Aogsto Attending Radha vailable Ugo, Dr. Suhas Liang Primary Care Unavaila ria Wolf, Dr. Shy Agosto Referring Radha vailable Ugo, Dr. Suhas Liang Primary Care Unavaila SHY Clancy Attending Unavail able Suhas Garrett DO Primary Care Provider SHY WOLF Referring Unavailable SUHAS GARRETT Primary Care Unavailable Trista FRIEDMAN, Gloria Gautam Attending Unavailable Giedraitis , Andrius Vytautmarshal Attending Unavailable Giedraitis , Andrius Vytautmarshal Attending Unavailable Giedraitis , Andrius Vytautmarshal Attending Unavailable Giedraitis , Andrius Vytautmarshal Attending Unavailable Giedraitis , Andrius Vytautmarshal Attending Unavailable Gifaniraitis , Andrius Dain Attending Unavailable SHY WOLF Attending Unavailable SUHAS GARRETT Primary Care Unavailable SHY WOLF Attending Unavailable SHY WOLF Referring Unavailable SUHAS GARRETT Primary Care Unavailable Kuns, Suhas Admitting Unavailable Kuns, Suhas Primary Care Unavailable Kuns, Suhas Attending Unavailable Kuns, Suhas Attending Unavailable Kuns, Suhas Admitting Unavailable Kuns, Suhas Primary Care Unavailable Kuns, Suhas Attending Unavailable Kuns, Suhas Admitting Unavailable Kuns, Suhas Primary Care Unavailable Kuns, Suhas Admitting Unavailable Kuns, Suhas Primary Care Unavailable Kuns, Suhas Attending Unavailable Kuns, Suhas Admitting Unavailable Kuns, Suhas Primary Care Unavailable Kuns, Suhas Attending Unavailable Allergies Allergy Classification Reported Allergen(s) Allergy Type Date of Onset Reaction(s) Facility (20 sources) Alendronate; Translations: [Fosamax] Drug Allergy 3 Unknown, Other [facility] Repository (20 sources) Amoxicillin; Translations: [amoxicillin] Drug Allergy 9 hives [facility] [place] Other (20 sources) Phenytoin; Translations: [Dilantin CAPS] Drug Allergy 3 Rash [facility] [place] Other (20 sources) Valproate; Translations: [Depakote ER TB24] Drug Allergy [facility] [place] Other (1 source) Alendronate Drug Allergy [facility] Repository (1 source) Amoxicillin Drug Allergy [facility] Repository (1 source) Phenytoin Drug Allergy [facility] Repository (1 source) Valproate Drug Allergy [facility] Repository (20 sources) Acetaminophen / HYDROcodone Drug Allergy elevated liver enzymes [facility] [place] Other (1 source) Alendronate Drug Allergy 3 Unknown [facility] (3 sources) HYDROcodone; Translations: [HYDROCODONE] Drug Allergy 4 GI Upset [facility] Work Phone: (3 sources) Valproate; Translations: [VALPROIC ACID] Drug Allergy 3 Unknown [facility] Work Phone: (1 source) Acetaminophen Drug Allergy [facility] Repository (1 source) Alendronate Drug Allergy [facility] Repository (1 source) Amoxicillin Drug Allergy [facility] Repository (1 source) HYDROcodone Drug Allergy [facility] Repository (1 source) Phenytoin Drug Allergy [facility] Repository (1 source) Valproate Drug Allergy [facility] Repository Medications Current Medications Medication Drug Class(es) [...] tablet by mouth once daily. 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] Onset: 09-03-2023 [...] fracture] Chronic Other aftercare (1 source) Other long chain quiller tender (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; Translations: [OTH SKILLED NURSING CURRENT DRUG THERAPY] Onset: 02-22-2022 Episodic Other [...] skin, unspecified] Episodic Other non-traumatic joint disorders (6 sources) Pain in left shoulder; Translations: [PAIN IN LEFT SHOULDER] Onset: 02-20-2022 Resolved: 02-22-2022 Episodic Other non-traumatic joint disorders (20 sources) Shoulder pain; Translations: [Pain in left shoulder] Episodic Other nutritional; endocrine; and metabolic disorders (7 sources) Overweight in adulthood with body mass index of 25 or more but less than 30; Translations: [Overweight] Episodic Other nutritional; endocrine; and metabolic disorders (2 sources) Body mass index (BMI) 26.0-26.9, adult; Translations: [Body mass index (BMI) 26.0-26.9, adult] Onset: 04-16-2024 Episodic Other screening for suspected conditions (not [...] Episodic/Chronic Conditions associated with dizziness or vertigo (2 sources) Dizziness and giddiness; Translations: [Dizziness and giddiness] Onset: 02-14-2022 Resolved: 02-14-2022 Episodic Other acquired [...] sites Onset: 02-22-2022 Resolved: 02-22-2022 Episodic Other circulatory disease (1 source) Other specified symptoms and signs involving the circulatory and respiratory systems; Translations: [Other specified symptoms and signs involving the circulatory and respiratory systems] Onset: 10-14-2023 Episodic Other liver diseases (1 source) Abnormal levels of other serum enzymes; Translations: [Abnormal levels of other serum enzymes] Onset: 09-03-2023 Episodic Other skin disorders (1 source) Localized [...] Test Name Value Interpretation Reference Range Facility XR scapula LT*on 05-25-2024 XR scapula LT* [facility] Main [place] [address] [place] [address] XRay Report Signed Patient: Lavonne Villatoro MR#: [id number] : 1935 Acct:[id number] Age/Sex: 88 / F ADM Date: 05/25/24 Loc: XD Room: Type: [facility] Attending Dr: Suhas Garrett DO Copies to: Suhas Garrett DO Ordering Provider: Suhas Garrett DO Date of Service: 05/25/24 XR/XR shoulder LT min 2V*: M25.519 - Pain in unspecified shoulder ([id number]) XR/XR scapula LT*: M25.519 - Pain in unspecified shoulder CLINICAL HISTORY: Burning, pain and itching at the left shoulder and scapula for the past month. No injury. LEFT SHOULDER - 3 views COMPARISON: 11/22/2019 AP, Y and Grashey views were obtained. There is osteopenia. There is no acute fracture or dislocation. There is minimal degenerative change at the acromioclavicular and inferior glenohumeral joints as well as the greater tuberosity. There are no significant soft tissue abnormalities. XR/XR shoulder LT min 2V* IMPRESSION: NO ACUTE BONY FINDINGS. LEFT SCAPULA - 2 views COMPARISON: 11/22/2019 AP and Y views were obtained. There is osteopenia. No acute fracture, dislocation or bony destruction is noted. Minor degenerative changes present at the shoulder. No soft tissue abnormalities are seen. IMPRESSION: NO ACUTE BONY FINDINGS. Impression dictated by: Casandra Gómez M.D.05/25/2024 4:45 PM Dictation Location: [place] [address] Transcribed By: [facility] 05/25/241644 Dictated By: Casandra Gómez MD 05/25/241641 Signed By: 05/25/241644 Normal [facility] TRANSTHORACIC ECHO (TTE) COM MIRIANTEon 02-11-2024 TRANSTHORACIC ECHO (TTE) COMPLETE [address], [address] [address] TRANSTHORACIC ECHOCARDIOGRAM REPORT Patient Name: LAVONNE VILLATORO Reading Physician: [id number] Shy Wolf MD, [facility] Study Date: 02/11/2024 Ordering Provider: [id number] SHY WOLF MRN/PID: [id number] Fellow: Nurse: Date of /Age: 3 1935 / 88 years Rub[employer] Process Hand: LILIA Gender: F Additional Staff: Height: 157.48 cm Admit Date: Weight: 69.40 kg Admission Status: BSA / BMI: 1.71 m2 / 27.98 kg/m2 Department Location: [facility] Blood Pressure: 116 /76 mmHg Study Type: TRANSTHORACIC ECHO (TTE) COMPLETE Diagnosis/ICD: Nonrheumatic aortic (valve) stenosis-I35.0 Indication: HTN, Hyperlipidemia, 3/6 Systolic Murmur, Hypothryoid, Overweight CPT Codes: Echo Complete w Full Doppler-58500 Study Detail: The following Echo studies were [...] mmHg PIEDV: 2.23 m/s PADP: 22.9 mmHg [id number] Shy Wolf MD, FACC Electronical (more content not included)... [facility] US carotid doppler BIon 05-0 US carotid doppler [facility] Main [address] [address] Ultrasound Report Signed Patient: Lavonne Villatoro MR#: [id number] : 1935 Acct:[id number] Age/Sex: 88 / F ADM Date: 10/14/23 Loc: Room: Type: [facility] Attending Dr: Suhas Garrett DO Ordering Provider: [...] Hola Wynn M.D.10/15/2023 11:47 AM Dictation Location: [facility]04 Tech: Jackie Aguillon Transcribed By: KIRILL 10/15/23 1147 Dictated By: Hola Wynn MD 10/15/23 1145 Signed By: 10/15/23 1147 Normal [facility] Complete Blood Count Auto Di ffon 09-03-2023 Basophils (Bld) [#/Vol] 0.0 10*3/uL Normal 0.0-0.2 [facility] Comment on above: Result Comment: PERF ORMED BY: [place] [address] PATHOLOGIST LATEX [employer]AM WORKER JODY SOLANO M.D. Performed By: #### C MP, MG, CBC, CRP, T4F, TSH3, ESR, URIC #### [address] #### AUGUST, ASO, RA #### [facility] , Basophils/100 WBC (Bld) 0.7 % Normal . [facility] Comment on above: Performed By: #### C MP, MG, CBC, CRP, T4F, TSH3, ESR, URIC #### [address] #### AUGUST, ASO, RA #### [facility] , Eosinophils (Bld) [#/Vol] 0.1 10*3/uL Normal 0.0-0.45 [facility] Comment on above: Performed By: #### C MP, MG, CBC, CRP, T4F, TSH3, ESR, URIC #### [place] [address] [place] #### AUGUST, ASO, RA #### [facility] , Eosinophils/100 WBC (Bld) 1.6 % Normal . [facility] Comment on above: Performed By: #### C MP, MG, CBC, CRP, T4F, TSH3, ESR, URIC #### [place] [address] [place] #### AUGUST, ASO, RA #### [facility] , Erythrocyte distribution width (RBC) [Ratio] 14.8 % Normal 11.9-15.3 [facility] Comment on above: Performed By: #### C MP, MG, CBC, CRP, T4F, TSH3, ESR, URIC #### [place] [address] [place] #### AUGUST, ASO, RA #### [facility] , Hematocrit (Bld) [Volume fraction] 39.9 % Normal 34.0-46.4 [facility] Comment on above: Performed By: #### C MP, MG, CBC, CRP, T4F, TSH3, ESR, URIC #### [place] [address] [place] #### AUGUST, ASO, RA #### [facility] , Hemoglobin (Bld) [Mass/Vol] 13.2 g/dL Normal 11.8-15.4 [facility] Comment on above: Performed By: #### C MP, MG, CBC, CRP, T4F, TSH3, ESR, URIC #### [address] #### AUGUST, ASO, RA #### [facility] , Lymphocytes (Bld) [#/Vol] 2.6 10*3/uL Normal 1.00-4.8 [facility] Comment on above: Performed By: #### C MP, MG, CBC, CRP, T4F, TSH3, ESR, URIC #### [place] [address] [place] #### AUGUST, ASO, RA #### [facility] , Lymphocytes/100 WBC (Bld) 43.5 % Normal . [facility] Comment on above: Performed By: #### C MP, MG, CBC, CRP, T4F, TSH3, ESR, URIC #### [place] [address] [place] #### AUGUST, ASO, RA #### [facility] , MCH (RBC) [Entitic mass] 33.2 pg Normal 24.7-34.3 [facility] Comment on above: Performed By: #### C MP, MG, CBC, CRP, T4F, TSH3, ESR, URIC #### [place] [address] [place] #### AUGUST, ASO, RA #### [facility] , MCV (RBC) [Entitic vol] 100.5 fL High 80-100 [facility] Comment on above: Performed By: #### C MP, MG, CBC, CRP, T4F, TSH3, ESR, URIC #### [place] [address] [place] #### AUGUST, ASO, RA #### [facility] , Mean Corpuscular HGB Conc 33.0 g/dL Normal 32.0-35.0 [facility] Comment on above: Performed By: #### C MP, MG, CBC, CRP, T4F, TSH3, ESR, URIC #### [place] [address] [place] #### AUGUST, ASO, RA #### [facility] , Monocytes (Bld) [#/Vol] 0.6 10*3/uL Normal 0.0-0.8 [facility] Comment on above: Performed By: #### C MP, MG, CBC, CRP, T4F, TSH3, ESR, URIC #### [place] [address] [place] #### AUGUST, ASO, RA #### [facility] , Monocytes/100 WBC (Bld) 9.7 % Normal . [facility] Comment on above: Performed By: #### C MP, MG, CBC, CRP, T4F, TSH3, ESR, URIC #### [place] [address] [place] #### AUGUST, ASO, RA #### [facility] , Neutrophils (Bld) [#/Vol] 2.7 10*3/uL Normal 1.8-7.7 [facility] Comment on above: Performed By: #### C MP, MG, CBC, CRP, T4F, TSH3, ESR, URIC #### [address] #### AUGUST, ASO, RA #### [facility] , Neutrophils/100 WBC (Bld) 44.5 % Normal . [facility] Comment on above: Performed By: #### C MP, MG, CBC, CRP, T4F, TSH3, ESR, URIC #### [address] #### AUGUST, ASO, RA #### [facility] , NRBC% 0.2 /100{WBC} Normal 0-0.5 [facility] Comment on above: Performed By: #### C MP, MG, CBC, CRP, T4F, TSH3, ESR, URIC #### [address] #### AUGUST, ASO, RA #### [facility] , Platelet mean volume (Bld) [Entitic vol] 9.2 fL Normal 6.3-10.7 [facility] Comment on above: Performed By: #### C MP, MG, CBC, CRP, T4F, TSH3, ESR, URIC #### [place] [address] [place] #### AUGUST, ASO, RA #### [facility] , Platelets (Bld) [#/Vol] 229 10*3/uL Normal 150-450 [facility] Comment on above: Performed By: #### C MP, MG, CBC, CRP, T4F, TSH3, ESR, URIC #### [place] [address] [place] #### AUGUST, ASO, RA #### [facility] , RBC (Bld) [#/Vol] 3.98 10*6/uL Normal 3.60-5.00 [facility] Comment on above: Performed By: #### C MP, MG, CBC, CRP, T4F, TSH3, ESR, URIC #### [place] [address] [place] #### AUGUST, ASO, RA #### [facility] , WBC (Bld) [#/Vol] 6.0 10*3/uL Normal 3.8-11.6 [facility] Comment on above: Performed By: #### C MP, MG, CBC, CRP, T4F, TSH3, ESR, URIC #### [address] #### AUGUST, ASO, RA #### [facility] , Comprehensive Metabolic Pane nory 09-03-2023 Albumin [Mass/Vol] 3.8 g/dL Normal 3.5-5.7 [facility] Comment on above: Performed By: #### C MP, MG, CBC, CRP, T4F, TSH3, ESR, URIC #### [place] [address] [place] #### AUGUST, ASO, RA #### [facility] , Albumin/Globulin [Mass ratio] 1.7 {ratio} Normal [facility] Comment on above: Performed By: #### C MP, MG, CBC, CRP, T4F, TSH3, ESR, URIC #### [place] [address] [place] #### AUGUST, ASO, RA #### [facility] , ALP [Catalytic activity/Vol] 72 U/L Normal 34-104 [facility] Comment on above: Performed By: #### C MP, MG, CBC, CRP, T4F, TSH3, ESR, URIC #### [place] [address] [place] #### AUGUST, ASO, RA #### [facility] , ALT [Catalytic activity/Vol] 43 U/L Normal 7-52 [facility] Comment on above: Performed By: #### C MP, MG, CBC, CRP, T4F, TSH3, ESR, URIC #### [place] [address] [place] #### AUGUST, ASO, RA #### [facility] , Anion gap [Moles/Vol] 8.9 mmol/L Normal 6.0-15.0 [facility] Comment on above: Performed By: #### C MP, MG, CBC, CRP, T4F, TSH3, ESR, URIC #### [place] [address] [place] #### AUGUST, ASO, RA #### [facility] , AST [Catalytic activity/Vol] 23 U/L Normal 13-39 [facility] Comment on above: Performed By: #### C MP, MG, CBC, CRP, T4F, TSH3, ESR, URIC #### [place] [address] [place] #### AUGUST, ASO, RA #### [facility] , Bilirubin [Mass/Vol] 1.2 mg/dL High 0.3-1.0 [facility] Comment on above: Performed By: #### C MP, MG, CBC, CRP, T4F, TSH3, ESR, URIC #### [address] #### AUGUST, ASO, RA #### [facility] , Calcium [Mass/Vol] 9.5 mg/dL Normal 8.6-10.3 [facility] Comment on above: Performed By: #### C MP, MG, CBC, CRP, T4F, TSH3, ESR, URIC #### [place] [address] [place] #### AUGUST, ASO, RA #### [facility] , Chloride [Moles/Vol] 107 mmol/L Normal 98-107 [facility] Comment on above: Performed By: #### C MP, MG, CBC, CRP, T4F, TSH3, ESR, URIC #### [place] [address] [place] #### AUGUST, ASO, RA #### [facility] , CO2 [Moles/Vol] 30.0 mmol/L Normal 21.0-31.0 [facility] Comment on above: Performed By: #### C MP, MG, CBC, CRP, T4F, TSH3, ESR, URIC #### [place] [address] [place] #### AUGUST, ASO, RA #### [facility] , Creatinine [Mass/Vol] 0.76 mg/dL Normal 0.60-1.20 [facility] Comment on above: Performed By: #### C MP, MG, CBC, CRP, T4F, TSH3, ESR, URIC #### [place] [address] [place] #### AUGUST, ASO, RA #### [facility] , GFR/1.73 sq M.predicted MDRD (S/P/Bld) [Vol rate/Area] mL/min/{1.73_m2} Normal [facility] Comment on above: Performed By: #### C MP, MG, CBC, CRP, T4F, TSH3, ESR, URIC #### [place] [address] [place] #### AUGUST, ASO, RA #### [facility] , Globulin (S) [Mass/Vol] 2.2 g/dL Normal [facility] Comment on above: Performed By: #### C MP, MG, CBC, CRP, T4F, TSH3, ESR, URIC #### [place] [address] [place] #### AUGUST, ASO, RA #### [facility] , Glucose [Mass/Vol] 79 mg/dL Normal 70-100 [facility] Comment on above: Result Comment: [place] Glucose Reference Range is dependent on time and content of last meal. Glucose of more than 200 mg/dL in a nonstressed, ambulatory subject supports the diagnosis of Diabetes Mellitus. ADA recommended reference range Performed By: #### C MP, MG, CBC, CRP, T4F, TSH3, ESR, URIC #### [place] [address] [place] #### AUGUST, ASO, RA #### [facility] , Potassium [Moles/Vol] 3.9 mmol/L Normal 3.5-5.1 [facility] Comment on above: Performed By: #### C MP, MG, CBC, CRP, T4F, TSH3, ESR, URIC #### [place] [address] [place] #### AUGUST, ASO, RA #### [facility] , Protein [Mass/Vol] 6.0 g/dL Low 6.4-8.9 [facility] Comment on above: Performed By: #### C MP, MG, CBC, CRP, T4F, TSH3, ESR, URIC #### [place] [address] [place] #### AUGUST, ASO, RA #### [facility] , Sodium [Moles/Vol] 142 mmol/L Normal 136-145 [facility] Comment on above: Performed By: #### C MP, MG, CBC, CRP, T4F, TSH3, ESR, URIC #### [place] [address] [place] #### AUGUST, ASO, RA #### [facility] , Urea nitrogen [Mass/Vol] 22 mg/dL Normal 7-25 [facility] Comment on above: Performed By: #### C MP, MG, CBC, CRP, T4F, TSH3, ESR, URIC #### [place] [address] [place] #### AUGUST, ASO, RA #### [facility] , Lipid Panelon 09-03-2023 Cholesterol [Mass/Vol] 243 mg/dL High 140-200 [facility] Comment on above: Result Comment: Chol less than 200 mg/dl low risk Chol 201-239 mg/dl borderline risk Chol 240 mg/dl and greater high risk Performed By: #### C MP, MG, CBC, CRP, T4F, TSH3, ESR, URIC #### [address] #### U[place], ASO, RA #### [facility] , Cholesterol in HDL [Mass/Vol] 98 mg/dL High 23-92 [facility] Comment on above: Result Comment: HDL CHOL ATP-III CLASSIFICATION Cardiovascular Risk HDL > or equal to 60 mg/dL LOW HDL < 40 mg/dL HIGH Performed By: #### C MP, MG, CBC, CRP, T4F, TSH3, ESR, URIC #### [place] [address] [place] #### AUGUST, ASO, RA #### [facility] , Cholesterol.total/Cho lesterol in HDL [Mass ratio] 2.5 {ratio} Normal <5.0 [facility] Comment on above: Performed By: #### C MP, MG, CBC, CRP, T4F, TSH3, ESR, URIC #### [address] #### AUGUST, ASO, RA #### [facility] , LDL Cholesterol,Calculate d 121 mg/dL High 0-100 [facility] Comment on above: Result Comment: LDL ATP III CLASSIFICATION LDL less than 100 mg/dL Optimal LDL 100-129 mg/dL Near or above optimal LDL 130-159 mg/dL Borderline high LDL 160-189 mg/dL High LDL greater than 189 mg/dL Very high Performed By: #### C MP, MG, CBC, CRP, T4F, TSH3, ESR, URIC #### [place] [address] [place] #### AUGUST, ASO, RA #### [facility] , Triglyceride w/Reflex 122 mg/dL Normal 0-149 [facility] Comment on above: Result Comment: TRIG ATP III CLASSIFICATION TRIG less than 150 mg/dL Normal TRIG 150-199 mg/dL Borderline high TRIG 200-500 mg/dL High TRIG greater than 500 mg/dL Very high Standard traceable to the Center for Disease Conrtrol and Prevention (CDC) test method. Performed By: #### C MP, MG, CBC, CRP, T4F, TSH3, ESR, URIC #### [address] #### AUGUST, ASO, RA #### [facility] , VLDL CHOLESTEROL 24 mg/dL Normal [facility] Comment on above: Performed By: #### C MP, MG, CBC, CRP, T4F, TSH3, ESR, URIC #### [address] #### AUGUST, ASO, RA #### [facility] , Thyroid Stimulating Hormoneo n 09-03-2023 TSH Qn 4.01 m[IU]/L Normal 0.45-5.33 [facility] Comment on above: Result Comment: PERF ORMED BY: [place] [address] PATHOLOGIST [employer] WORKER JODY SOLANO M.D. Performed By: #### C MP, MG, CBC, CRP, T4F, TSH3, ESR, URIC #### [place] [address] [place] #### AUGUST, ASO, RA #### [facility] , Complete Blood Count Auto Di ffon 07-08-2023 Basophils (Bld) [#/Vol] 0.149299475 10*3/uL Normal 0.0-0.2 10*3/uL [facility] Other Basophils/100 WBC (Bld) 0.900 % . % [facility] Other Eosinophils (Bld) [#/Vol] 0.697409448 10*3/uL Normal 0.0-0.45 10*3/uL [facility] Other Eosinophils/100 WBC (Bld) 1.100 % . % [facility] Other Erythrocyte distribution width (RBC) [Ratio] 14.000 % Normal 11.9-15.3 % [facility] Other Hematocrit (Bld) [Volume fraction] 37.700 % Normal 34.0-46.4 % [facility] Other Hemoglobin (Bld) [Mass/Vol] 12.093571 g/dL Normal 11.8-15.4 g/dL [facility] Other Lymphocytes (Bld) [#/Vol] 2.088704300 10*3/uL Normal 1.00-4.8 10*3/uL [facility] Other Lymphocytes/100 WBC (Bld) 35.100 % . % [facility] Other MCH (RBC) [Entitic mass] 33.3000 pg Normal 24.7-34.3 pg [facility] Other MCV (RBC) [Entitic vol] 99.7000 fL Normal 80-100 fL [facility] Other Monocytes (Bld) [#/Vol] 0.235650542 10*3/uL Normal 0.0-0.8 10*3/uL [facility] Other Monocytes/100 WBC (Bld) 10.000 % . % [facility] Other Neutrophils (Bld) [#/Vol] 3.709383241 10*3/uL Normal 1.8-7.7 10*3/uL [facility] Other Neutrophils/100 WBC (Bld) 52.900 % . % [facility] Other Platelet mean volume (Bld) [Entitic vol] 9.9000 fL Normal 6.3-10.7 fL [facility] Other WBC (Bld) [#/Vol] 7.140507358 10*3/uL Normal 3.8 -11.6 10*3/uL [facility] Other Complete Blood Count Auto Diff 7.1 10*3/uL Normal 3.8-11.6 10*3/uL [facility] Other Complete Blood Count Auto Diff 33.4 g/dL Normal 32.0-35.0 g/dL [facility] Other Complete Blood Count Auto Diff 0.1 /100{WBC} Normal 0-0.5 /100{WBC} [facility] [place] Other Basophils (Bld) [#/Vol] 0.1 10*3/uL Normal 0.0-0.2 [facility] Comment on above: Order Comment: Reaso n for Exam Hyperthyroidism Result Comment: PERF ORMED BY: [place] [address] PATHOLOGIST [employer] WORKER JODY SOLANO M.D. Performed By: #### C MP, MG, CBC, CRP, T4F, TSH3, ESR, URIC #### [facility] [address] [place] [address] #### AUGUST, ASO, RA #### [facility] , Basophils/100 WBC (Bld) 0.9 % Normal . [facility] Comment on above: Order Comment: Reaso n for Exam Hyperthyroidism Performed By: #### C MP, MG, CBC, CRP, T4F, TSH3, ESR, URIC #### [facility] [address] [place] [address] #### AUGUST, ASO, RA #### [facility] , Eosinophils (Bld) [#/Vol] 0.1 10*3/uL Normal 0.0-0.45 [facility] Comment on above: Order Comment: Reaso n for Exam Hyperthyroidism Performed By: #### C MP, MG, CBC, CRP, T4F, TSH3, ESR, URIC #### [address] #### AUGUST, ASO, RA #### [facility] , Eosinophils/100 WBC (Bld) 1.1 % Normal . [facility] Comment on above: Order Comment: Reaso n for Exam Hyperthyroidism Performed By: #### C MP, MG, CBC, CRP, T4F, TSH3, ESR, URIC #### [address] #### AUGUST, ASO, RA #### [facility] , Erythrocyte distribution width (RBC) [Ratio] 14.0 % Normal 11.9-15.3 [facility] Comment on above: Order Comment: Reaso n for Exam Hyperthyroidism Performed By: #### C MP, MG, CBC, CRP, T4F, TSH3, ESR, URIC #### [address] #### AUGUST, ASO, RA #### [facility] , Hematocrit (Bld) [Volume fraction] 37.7 % Normal 34.0-46.4 [facility] Comment on above: Order Comment: Reaso n for Exam Hyperthyroidism Performed By: #### C MP, MG, CBC, CRP, T4F, TSH3, ESR, URIC #### [address] #### AUGUST, ASO, RA #### [facility] , Hemoglobin (Bld) [Mass/Vol] 12.6 g/dL Normal 11.8-15.4 [facility] Comment on above: Order Comment: Reaso n for Exam Hyperthyroidism Performed By: #### C MP, MG, CBC, CRP, T4F, TSH3, ESR, URIC #### [place] [address] [place] #### AUGUST, ASO, RA #### [facility] , Lymphocytes (Bld) [#/Vol] 2.5 10*3/uL Normal 1.00-4.8 [facility] Comment on above: Order Comment: Reaso n for Exam Hyperthyroidism Performed By: #### C MP, MG, CBC, CRP, T4F, TSH3, ESR, URIC #### [address] #### AUGUST, ASO, RA #### [facility] , Lymphocytes/100 WBC (Bld) 35.1 % Normal . [facility] Comment on above: Order Comment: Reaso n for Exam Hyperthyroidism Performed By: #### C MP, MG, CBC, CRP, T4F, TSH3, ESR, URIC #### [address] #### AUGUST, ASO, RA #### [facility] , MCH (RBC) [Entitic mass] 33.3 pg Normal 24.7-34.3 [facility] Comment on above: Order Comment: Reaso n for Exam Hyperthyroidism Performed By: #### C MP, MG, CBC, CRP, T4F, TSH3, ESR, URIC #### [address] #### AUGUST, ASO, RA #### [facility] , MCV (RBC) [Entitic vol] 99.7 fL Normal 80-100 [facility] Comment on above: Order Comment: Reaso n for Exam Hyperthyroidism Performed By: #### C MP, MG, CBC, CRP, T4F, TSH3, ESR, URIC #### [place] [address] [place] #### AUGUST, ASO, RA #### [facility] , Mean Corpuscular HGB Conc 33.4 g/dL Normal 32.0-35.0 [facility] Comment on above: Order Comment: Reaso n for Exam Hyperthyroidism Performed By: #### C MP, MG, CBC, CRP, T4F, TSH3, ESR, URIC #### [place] [address] [place] #### AUGUST, ASO, RA #### [facility] , Monocytes (Bld) [#/Vol] 0.7 10*3/uL Normal 0.0-0.8 [facility] Comment on above: Order Comment: Reaso n for Exam Hyperthyroidism Performed By: #### C MP, MG, CBC, CRP, T4F, TSH3, ESR, URIC #### [place] [address] [place] #### AUGUST, ASO, RA #### [facility] , Monocytes/100 WBC (Bld) 10.0 % Normal . [facility] Comment on above: Order Comment: Reaso n for Exam Hyperthyroidism Performed By: #### C MP, MG, CBC, CRP, T4F, TSH3, ESR, URIC #### [address] #### AUGUST, ASO, RA #### [facility] , Neutrophils (Bld) [#/Vol] 3.7 10*3/uL Normal 1.8-7.7 [facility] Comment on above: Order Comment: Reaso n for Exam Hyperthyroidism Performed By: #### C MP, MG, CBC, CRP, T4F, TSH3, ESR, URIC #### [place] [address] [place] #### AUGUST, ASO, RA #### [facility] , Neutrophils/100 WBC (Bld) 52.9 % Normal . [facility] Comment on above: Order Comment: Reaso n for Exam Hyperthyroidism Performed By: #### C MP, MG, CBC, CRP, T4F, TSH3, ESR, URIC #### [place] [address] [place] #### AUGUST, ASO, RA #### [facility] , NRBC% 0.1 /100{WBC} Normal 0-0.5 [facility] Comment on above: Order Comment: Reaso n for Exam Hyperthyroidism Performed By: #### C MP, MG, CBC, CRP, T4F, TSH3, ESR, URIC #### [place] [address] [place] #### AUGUST, ASO, RA #### [facility] , Platelet mean volume (Bld) [Entitic vol] 9.9 fL Normal 6.3-10.7 [facility] Comment on above: Order Comment: Reaso n for Exam Hyperthyroidism Performed By: #### C MP, MG, CBC, CRP, T4F, TSH3, ESR, URIC #### [place] [address] [place] #### AUGUST, ASO, RA #### [facility] , Platelets (Bld) [#/Vol] 224 10*3/uL Normal 150-450 [facility] Other Comment on above: Order Comment: Reaso n for Exam Hyperthyroidism Performed By: #### C MP, MG, CBC, CRP, T4F, TSH3, ESR, URIC #### [place] [address] [place] #### AUGUST, ASO, RA #### [facility] , RBC (Bld) [#/Vol] 3.78 10*6/uL Normal 3.60-5.00 [facility] Other Comment on above: Order Comment: Reaso n for Exam Hyperthyroidism Performed By: #### C MP, MG, CBC, CRP, T4F, TSH3, ESR, URIC #### [place] [address] [place] #### AUGUST, ASO, RA #### [facility] , WBC (Bld) [#/Vol] 7.1 10*3/uL Normal 3.8-11.6 [facility] Comment on above: Order Comment: Reaso n for Exam Hyperthyroidism Performed By: #### C MP, MG, CBC, CRP, T4F, TSH3, ESR, URIC #### [place] [address] [place] #### AUGUST, ASO, RA #### [facility] , Comprehensive Metabolic Pane nory 07-08-2023 Albumin [Mass/Vol] 3.832897 g/dL Normal 3.5-5.7 g/dL N [facility] [employer] Other Bilirubin [Mass/Vol] 0.7737005 mg/dL Normal 0.3- 1.0 mg/dL [facility] Other Calcium [Mass/Vol] 9.5565709 mg/dL Normal 8.6-10 .3 mg/dL [facility] Other CO2 [Moles/Vol] 30.80067690 mmol/L Normal 21.0-3 1.0 mmol/L [facility] Other Creatinine [Mass/Vol] 0.22444304 mg/dL Normal 0. 60-1.20 mg/dL [facility] Other Potassium [Moles/Vol] 3.57464216 mmol/L Normal 3 .5-5.1 mmol/L [facility] Other Protein [Mass/Vol] 6.887069 g/dL Low 6.4-8.9 g/dL N [facility] [employer] Other Comprehensive Metabolic Panel 2.2 g/dL [facility] Other Albumin [Mass/Vol] 3.8 g/dL Normal 3.5-5.7 [facility] Comment on above: Order Comment: Reaso n for Exam Hyperthyroidism Performed By: #### C MP, MG, CBC, CRP, T4F, TSH3, ESR, URIC #### [facility] [address] #### AUGUST, ASO, RA #### [facility] , Albumin/Globulin [Mass ratio] 1.7 {ratio} Normal [place] [employer] Other Comment on above: Order Comment: Reaso n for Exam Hyperthyroidism Performed By: #### C MP, MG, CBC, CRP, T4F, TSH3, ESR, URIC #### [facility] [address] [place] [address] #### AUGUST, ASO, RA #### [facility] , ALP [Catalytic activity/Vol] 140 U/L High 34-104 [facility] Other Comment on above: Order Comment: Reaso n for Exam Hyperthyroidism Performed By: #### C MP, MG, CBC, CRP, T4F, TSH3, ESR, URIC #### [facility] [address] [place] [address] [place] #### AUGUST, ASO, RA #### [facility] , ALT [Catalytic activity/Vol] 71 U/L High 7-52 [facility] Other Comment on above: Order Comment: Reaso n for Exam Hyperthyroidism Performed By: #### C MP, MG, CBC, CRP, T4F, TSH3, ESR, URIC #### [facility] [address] [place] [address] #### AUGUST, ASO, RA #### [facility] , Anion gap [Moles/Vol] 9.0 mmol/L Normal 6.0-15.0 [facility] Comment on above: Order Comment: Reaso n for Exam Hyperthyroidism Performed By: #### C MP, MG, CBC, CRP, T4F, TSH3, ESR, URIC #### [facility] [address] [place] [address] [place] #### AUGUST, ASO, RA #### [facility] , AST [Catalytic activity/Vol] 20 U/L Normal 13-39 [facility] Other Comment on above: Order Comment: Reaso n for Exam Hyperthyroidism Performed By: #### C MP, MG, CBC, CRP, T4F, TSH3, ESR, URIC #### [facility] [address] [place] [address] [place] #### AUGUST, ASO, RA #### [facility] , Bilirubin [Mass/Vol] 0.7 mg/dL Normal 0.3-1.0 [facility] Comment on above: Order Comment: Reaso n for Exam Hyperthyroidism Performed By: #### C MP, MG, CBC, CRP, T4F, TSH3, ESR, URIC #### [facility] [address] [place] [address] [place] #### AUGUST, ASO, RA #### [facility] , Calcium [Mass/Vol] 9.4 mg/dL Normal 8.6-10.3 [facility] Comment on above: Order Comment: Reaso n for Exam Hyperthyroidism Performed By: #### C MP, MG, CBC, CRP, T4F, TSH3, ESR, URIC #### [facility] [address] [place] [address] [place] #### AUGUST, ASO, RA #### [facility] , Chloride [Moles/Vol] 107 mmol/L Normal 98-107 [employer] Other Comment on above: Order Comment: Reaso n for Exam Hyperthyroidism Performed By: #### C MP, MG, CBC, CRP, T4F, TSH3, ESR, URIC #### [facility] [address] [place] [address] [place] #### AUGUST, ASO, RA #### [facility] , CO2 [Moles/Vol] 30.7 mmol/L Normal 21.0-31.0 [facility] Comment on above: Order Comment: Reaso n for Exam Hyperthyroidism Performed By: #### C MP, MG, CBC, CRP, T4F, TSH3, ESR, URIC #### [facility] [address] [place] [address] [place] #### AUGUST, ASO, RA #### [facility] , Creatinine [Mass/Vol] 0.76 mg/dL Normal 0.60-1.20 [facility] Comment on above: Order Comment: Reaso n for Exam Hyperthyroidism Performed By: #### C MP, MG, CBC, CRP, T4F, TSH3, ESR, URIC #### [facility] [address] [place] [address] [place] #### AUGUST, ASO, RA #### [facility] , GFR/1.73 sq M.predicted MDRD (S/P/Bld) [Vol rate/Area] mL/min/{1.73_m2} Normal [facility] Other Comment on above: Order Comment: Reaso n for Exam Hyperthyroidism Performed By: #### C MP, MG, CBC, CRP, T4F, TSH3, ESR, URIC #### [facility] [address] [place] [address] [place] #### AUGUST, ASO, RA #### [facility] , Globulin (S) [Mass/Vol] 2.2 g/dL Normal [facility] Comment on above: Order Comment: Reaso n for Exam Hyperthyroidism Performed By: #### C MP, MG, CBC, CRP, T4F, TSH3, ESR, URIC #### [facility] [address] [place] [address] [place] #### AUGUST, ASO, RA #### [facility] , Glucose [Mass/Vol] 89 mg/dL Normal 70-100 [facility] Other Comment on above: Order Comment: Reaso n for Exam Hyperthyroidism Result Comment: [place] Glucose Reference Range is dependent on time and content of last meal. Glucose of more than 200 mg/dL in a nonstressed, ambulatory subject supports the diagnosis of Diabetes Mellitus. ADA recommended reference range Performed By: #### C MP, MG, CBC, CRP, T4F, TSH3, ESR, URIC #### [facility] [address] [place] [address] [place] #### AUGUST, ASO, RA #### [facility] , Potassium [Moles/Vol] 3.7 mmol/L Normal 3.5-5.1 [facility] Comment on above: Order Comment: Reaso n for Exam Hyperthyroidism Performed By: #### C MP, MG, CBC, CRP, T4F, TSH3, ESR, URIC #### [facility] [address] [place] [address] [place] #### AUGUST, ASO, RA #### [facility] , Protein [Mass/Vol] 6.0 g/dL Low 6.4-8.9 [facility] Comment on above: Order Comment: Reaso n for Exam Hyperthyroidism Performed By: #### C MP, MG, CBC, CRP, T4F, TSH3, ESR, URIC #### [facility] [address] [place] [address] [place] #### AUGUST, ASO, RA #### [facility] , Sodium [Moles/Vol] 143 mmol/L Normal 136-145 [facility] Other Comment on above: Order Comment: Reaso n for Exam Hyperthyroidism Performed By: #### C MP, MG, CBC, CRP, T4F, TSH3, ESR, URIC #### [place] [address] [place] #### AUGUST, ASO, RA #### [facility] , Urea nitrogen [Mass/Vol] 21 mg/dL Normal 7-25 [facility] Other Comment on above: Order Comment: Reaso n for Exam Hyperthyroidism Performed By: #### C MP, MG, CBC, CRP, T4F, TSH3, ESR, URIC #### [place] [address] [place] #### AUGUST, ASO, RA #### [facility] , Free T4 (Free Thyroxine)on 0 07-08-2023 Free T4 [Mass/Vol] 1.76800207 ng/dL High 0.61- 1.12 ng/dL [facility] Other Free T4 [Mass/Vol] 1.46 ng/dL High 0.61-1.12 [facility] Comment on above: Order Comment: Reaso n for Exam Hyperthyroidism Performed By: #### C MP, MG, CBC, CRP, T4F, TSH3, ESR, URIC #### [place] [address] [place] #### AUGUST, ASO, RA #### [facility] , Thyroid Antibodies TPO+Tg Ab on 07-08-2023 Thyroid Antibodies TPO+Tg Ab 11 0-34 [facility] Other Thyroid Antibodies TPO+Tg Ab <1.0 0.0-0.9 [facility] Other Antithyroglobulin Ab <1.0 Normal 0.0-0.9 [facility] Comment on above: Order Comment: Reaso n for Exam Hyperthyroidism Result Comment: Thyr oglobulin Antibody measured by [employer] Performed at: - [facility] [id number] Termite Technician: Antonino Belle PhD, Phone: [phone] PERFORMED BY: [place] [address] PATHOLOGIST [employer]AM WORKER JODY SOLANO M.D. Performed By: #### C MP, MG, CBC, CRP, T4F, TSH3, ESR, URIC #### [facility] [address] [place] [address] #### AUGUST, ASO, RA #### [facility] , Thyroid Peroxidase Antibodies 11 Normal 0-34 [facility] Comment on above: Order Comment: Reaso n for Exam Hyperthyroidism Performed By: #### C MP, MG, CBC, CRP, T4F, TSH3, ESR, URIC #### [facility] [address] [place] [address] #### AUGUST, ASO, RA #### [facility] , Thyroid Stimulating Hormoneo n 07-08-2023 TSH Qn 2.50905398371 m[IU]/L Normal 0.45-5.33 u[iU]/mL [facility] Other TSH Qn 2.42 m[IU]/L Normal 0.45-5.33 [facility] Comment on above: Order Comment: Reaso n for Exam Hyperthyroidism Result Comment: PERF ORMED BY: [address] [place] [address] PATHOLOGIST [employer] WORKER JODY SOLANO M.D. Performed By: #### C MP, MG, CBC, CRP, T4F, TSH3, ESR, URIC #### [address] #### AUGUST, ASO, RA #### [facility] , AUGUST Antinuclear Antibodieson 07-04-2023 Antinuclear Abs, IFA Positive Critically abnormal . [facility] Comment on above: Result Comment: Nega tive <1:80 Borderline 1:80 Positive >1:80 Speckled cytoplasmic fluorescence is present. The antibodies noted in this pattern may be associated with, but not restricted to, primary biliary cirrhosis (PBC), polymyositis and dermatomyositis (PM/DM), and/or systemic lupus erythematosus (SLE). Performed By: #### C MP, MG, CBC, CRP, T4F, TSH3, ESR, URIC #### [place] [address] [place] #### AUGUST, ASO, RA #### [facility] , Homogeneous Pattern 1:160 High . [facility] Comment on above: Result Comment: ICAP nomenclature: [id number] Performed By: #### C MP, MG, CBC, CRP, T4F, TSH3, ESR, URIC #### [address] #### AUGUST, ASO, RA #### [facility] , Note 1 Normal . [facility] Comment on above: Result Comment: Lucita marshall Potential Disease Association Homogeneous Systemic Lupus Erythematosus, Drug Induced Systemic Lupus Erythematosus, Chronic Autoimmune hepatitis, Juvenile Idiopathic Arthritis Speckled Sjogren Syndrome, Systemic Lupus Erythematosus, Subacute Cutaneous Lupus, Lupus, Congenital Heart Block, Mixed Connective Tissue Disease, Scleroderma-diffuse, Scleroderma-Autoimmune Myositis Overlap Syndrome, Systemic Lupus Eotqoywpdyvjd-Kfbczfaxsmu-Zqhgooprkg Myositis Overlap Syndrome, Systemic Autoimmune Rheumatic Disease, [...] Cytopenias, Linear Scleroderma, Antiphospholipid Syndrome Performed at: [address] [id number] Termite Technician: Antonino Belle PhD, Phone: [phone] Performed By: #### C MP, MG, CBC, CRP, T4F, TSH3, ESR, URIC #### [address] #### AUGUST, ASO, RA #### [facility] , Anti-Streptolysin O Antibody on 07-04-2023 Anti-Streptolysin O Antibody <20.0 Normal 0.0-200.0 [facility] Comment on above: Result Comment: Perf ormed at: - [facility] [address] [id number] Termite Technician: Antonino Belle PhD, Phone: [phone] PERFORMED BY: [place] [address] PATHOLOGIST [employer] WORKER JODY SOLANO M.D. Performed By: #### C MP, MG, CBC, CRP, T4F, TSH3, ESR, URIC #### [address] #### AUGUST, ASO, RA #### [facility] , C-Reactive Proteinon 024 C-Reactive Protein 0.5 mg/dL Normal 0.0-0.5 [facility] Comment on above: Performed By: #### C MP, MG, CBC, CRP, T4F, TSH3, ESR, URIC #### [address] #### AUGUST, ASO, RA #### [facility] , Complete Blood Count Auto Di ffon 07-04-2023 Basophils (Bld) [#/Vol] 0.0 10*3/uL Normal 0.0-0.2 [facility] Comment on above: Performed By: #### C MP, MG, CBC, CRP, T4F, TSH3, ESR, URIC #### [address] #### AUGUST, ASO, RA #### [facility] , Basophils/100 WBC (Bld) 0.6 % Normal . [facility] Comment on above: Performed By: #### C MP, MG, CBC, CRP, T4F, TSH3, ESR, URIC #### [place] [address] [place] #### AUGUST, ASO, RA #### [facility] , Eosinophils (Bld) [#/Vol] 0.1 10*3/uL Normal 0.0-0.45 [facility] Comment on above: Performed By: #### C MP, MG, CBC, CRP, T4F, TSH3, ESR, URIC #### [address] #### AUGUST, ASO, RA #### [facility] , Eosinophils/100 WBC (Bld) 0.7 % Normal . [facility] Comment on above: Performed By: #### C MP, MG, CBC, CRP, T4F, TSH3, ESR, URIC #### [address] #### AUGUST, ASO, RA #### [facility] , Erythrocyte distribution width (RBC) [Ratio] 14.1 % Normal 11.9-15.3 [facility] Comment on above: Performed By: #### C MP, MG, CBC, CRP, T4F, TSH3, ESR, URIC #### [place] [address] [place] #### AUGUST, ASO, RA #### [facility] , Hematocrit (Bld) [Volume fraction] 38.8 % Normal 34.0-46.4 [facility] Comment on above: Performed By: #### C MP, MG, CBC, CRP, T4F, TSH3, ESR, URIC #### [place] [address] [place] #### AUGUST, ASO, RA #### [facility] , Hemoglobin (Bld) [Mass/Vol] 13.4 g/dL Normal 11.8-15.4 [facility] Comment on above: Performed By: #### C MP, MG, CBC, CRP, T4F, TSH3, ESR, URIC #### [place] [address] [place] #### AUGUST, ASO, RA #### [facility] , Lymphocytes (Bld) [#/Vol] 1.0 10*3/uL Normal 1.00-4.8 [facility] Comment on above: Performed By: #### C MP, MG, CBC, CRP, T4F, TSH3, ESR, URIC #### [address] #### AUGUST, ASO, RA #### [facility] , Lymphocytes/100 WBC (Bld) 13.9 % Normal . [facility] Comment on above: Performed By: #### C MP, MG, CBC, CRP, T4F, TSH3, ESR, URIC #### [address] #### AUGUST, ASO, RA #### [facility] , MCH (RBC) [Entitic mass] 33.9 pg Normal 24.7-34.3 [facility] Comment on above: Performed By: #### C MP, MG, CBC, CRP, T4F, TSH3, ESR, URIC #### [place] [address] [place] #### AUGUST, ASO, RA #### [facility] , MCV (RBC) [Entitic vol] 98.3 fL Normal 80-100 [facility] Comment on above: Performed By: #### C MP, MG, CBC, CRP, T4F, TSH3, ESR, URIC #### [address] #### AUGUST, ASO, RA #### [facility] , Mean Corpuscular HGB Conc 34.4 g/dL Normal 32.0-35.0 [facility] Comment on above: Performed By: #### C MP, MG, CBC, CRP, T4F, TSH3, ESR, URIC #### [address] #### AUGUST, ASO, RA #### [facility] , Monocytes (Bld) [#/Vol] 0.4 10*3/uL Normal 0.0-0.8 [facility] Comment on above: Performed By: #### C MP, MG, CBC, CRP, T4F, TSH3, ESR, URIC #### [address] #### AUGUST, ASO, RA #### [facility] , Monocytes/100 WBC (Bld) 5.4 % Normal . [facility] Comment on above: Performed By: #### C MP, MG, CBC, CRP, T4F, TSH3, ESR, URIC #### [address] #### AUGUST, ASO, RA #### [facility] , Neutrophils (Bld) [#/Vol] 5.8 10*3/uL Normal 1.8-7.7 [facility] Comment on above: Performed By: #### C MP, MG, CBC, CRP, T4F, TSH3, ESR, URIC #### [address] #### AUGUST, ASO, RA #### [facility] , Neutrophils/100 WBC (Bld) 79.4 % Normal . [facility] Comment on above: Performed By: #### C MP, MG, CBC, CRP, T4F, TSH3, ESR, URIC #### [place] [address] [place] #### AUGUST, ASO, RA #### [facility] , NRBC% 0.0 /100{WBC} Normal 0-0.5 [facility] Comment on above: Performed By: #### C MP, MG, CBC, CRP, T4F, TSH3, ESR, URIC #### [place] [address] [place] #### AUGUST, ASO, RA #### [facility] , Platelet mean volume (Bld) [Entitic vol] 9.6 fL Normal 6.3-10.7 [facility] Comment on above: Performed By: #### C MP, MG, CBC, CRP, T4F, TSH3, ESR, URIC #### [place] [address] [place] #### AUGUST, ASO, RA #### [facility] , Platelets (Bld) [#/Vol] 211 10*3/uL Normal 150-450 [facility] Comment on above: Performed By: #### C MP, MG, CBC, CRP, T4F, TSH3, ESR, URIC #### [place] [address] [place] #### AUGUST, ASO, RA #### [facility] , RBC (Bld) [#/Vol] 3.95 10*6/uL Normal 3.60-5.00 [facility] Comment on above: Performed By: #### C MP, MG, CBC, CRP, T4F, TSH3, ESR, URIC #### [place] [address] [place] #### AUGUST, ASO, RA #### [facility] , WBC (Bld) [#/Vol] 7.3 10*3/uL Normal 3.8-11.6 [facility] Comment on above: Performed By: #### C MP, MG, CBC, CRP, T4F, TSH3, ESR, URIC #### [place] [address] [place] #### AUGUST, ASO, RA #### [facility] , Comprehensive Metabolic Pane nory 07-04-2023 Albumin [Mass/Vol] 4.2 g/dL Normal 3.5-5.7 [facility] Comment on above: Performed By: #### C MP, MG, CBC, CRP, T4F, TSH3, ESR, URIC #### [place] [address] [place] #### AUGUST, ASO, RA #### [facility] , Albumin/Globulin [Mass ratio] 1.8 {ratio} Normal [facility] Comment on above: Performed By: #### C MP, MG, CBC, CRP, T4F, TSH3, ESR, URIC #### [facility] [address] [place] [address] [place] #### AUGUST, ASO, RA #### [facility] , ALP [Catalytic activity/Vol] 220 U/L High 34-104 [facility] Comment on above: Performed By: #### C MP, MG, CBC, CRP, T4F, TSH3, ESR, URIC #### [place] [address] [place] #### AUGUST, ASO, RA #### [facility] , ALT [Catalytic activity/Vol] 181 U/L High 7-52 [facility] Comment on above: Performed By: #### C MP, MG, CBC, CRP, T4F, TSH3, ESR, URIC #### [address] #### AUGUST, ASO, RA #### [facility] , Anion gap [Moles/Vol] 11.0 mmol/L Normal 6.0-15.0 [facility] Comment on above: Performed By: #### C MP, MG, CBC, CRP, T4F, TSH3, ESR, URIC #### [facility] [address] [place] [address] [place] #### AUGUST, ASO, RA #### [facility] , AST [Catalytic activity/Vol] 56 U/L High 13-39 [facility] Comment on above: Performed By: #### C MP, MG, CBC, CRP, T4F, TSH3, ESR, URIC #### [address] #### AUGUST, ASO, RA #### [facility] , Bilirubin [Mass/Vol] 1.2 mg/dL High 0.3-1.0 [facility] Comment on above: Performed By: #### C MP, MG, CBC, CRP, T4F, TSH3, ESR, URIC #### [place] [address] [place] #### AUGUST, ASO, RA #### [facility] , Calcium [Mass/Vol] 10.0 mg/dL Normal 8.6-10.3 [facility] Comment on above: Performed By: #### C MP, MG, CBC, CRP, T4F, TSH3, ESR, URIC #### [place] [address] [place] #### AUGUST, ASO, RA #### [facility] , Chloride [Moles/Vol] 105 mmol/L Normal 98-107 [facility] Comment on above: Performed By: #### C MP, MG, CBC, CRP, T4F, TSH3, ESR, URIC #### [address] #### AUGUST, ASO, RA #### [facility] , CO2 [Moles/Vol] 29.8 mmol/L Normal 21.0-31.0 [facility] Comment on above: Performed By: #### C MP, MG, CBC, CRP, T4F, TSH3, ESR, URIC #### [place] [address] [place] #### AUGUST, ASO, RA #### [facility] , Creatinine [Mass/Vol] 0.68 mg/dL Normal 0.60-1.20 [facility] Comment on above: Performed By: #### C MP, MG, CBC, CRP, T4F, TSH3, ESR, URIC #### [place] [address] [place] #### AUGUST, ASO, RA #### [facility] , GFR/1.73 sq M.predicted MDRD (S/P/Bld) [Vol rate/Area] mL/min/{1.73_m2} Normal [facility] Comment on above: Performed By: #### C MP, MG, CBC, CRP, T4F, TSH3, ESR, URIC #### [place] [address] [place] #### AUGUST, ASO, RA #### [facility] , Globulin (S) [Mass/Vol] 2.4 g/dL Normal [facility] Comment on above: Performed By: #### C MP, MG, CBC, CRP, T4F, TSH3, ESR, URIC #### [place] [address] [place] #### AUGUST, ASO, RA #### [facility] , Glucose [Mass/Vol] 97 mg/dL Normal 70-100 The [facility] Comment on above: Result Comment: [facility] Glucose Reference Range is dependent on time and content of last meal. Glucose of more than 200 mg/dL in a nonstressed, ambulatory subject supports the diagnosis of Diabetes Mellitus. ADA recommended reference range Performed By: #### C MP, MG, CBC, CRP, T4F, TSH3, ESR, URIC #### [place] [address] [place] #### AUGUST, ASO, RA #### [facility] , Potassium [Moles/Vol] 3.8 mmol/L Normal 3.5-5.1 [facility] Comment on above: Performed By: #### C MP, MG, CBC, CRP, T4F, TSH3, ESR, URIC #### [place] [address] [place] #### AUGUST, ASO, RA #### [facility] , Protein [Mass/Vol] 6.6 g/dL Normal 6.4-8.9 [facility] Comment on above: Performed By: #### C MP, MG, CBC, CRP, T4F, TSH3, ESR, URIC #### [address] #### AUGUST, ASO, RA #### [facility] , Sodium [Moles/Vol] 142 mmol/L Normal 136-145 [facility] Comment on above: Performed By: #### C MP, MG, CBC, CRP, T4F, TSH3, ESR, URIC #### [address] #### AUGUST, ASO, RA #### [facility] , Urea nitrogen [Mass/Vol] 19 mg/dL Normal 7-25 [facility] Comment on above: Performed By: #### C MP, MG, CBC, CRP, T4F, TSH3, ESR, URIC #### [address] #### AUGUST, ASO, RA #### [facility] , Erythrocyte Sedimentation Ra amy 07-04-2023 ESR (Bld) [Velocity] 19 mm/h Normal 0-29 [facility] Comment on above: Result Comment: PERF ORMED BY: [place] [address] PATHOLOGIST LATEX FOAM WORKER JODY SOLANO M.D. Performed By: #### C MP, MG, CBC, CRP, T4F, TSH3, ESR, URIC #### [place] [address] [place] #### AUGUST, ASO, RA #### [facility] , Free T4 (Free Thyroxine)on 0 07-04-2023 Free T4 [Mass/Vol] 4.05 ng/dL High 0.61-1.12 [facility] Comment on above: Performed By: #### C MP, MG, CBC, CRP, T4F, TSH3, ESR, URIC #### [address] #### AUGUST, ASO, RA #### [facility] , Magnesiumon 07-04-2023 Magnesium [Mass/Vol] 2.0 mg/dL Normal 1.9-2.7 [facility] Comment on above: Performed By: #### C MP, MG, CBC, CRP, T4F, TSH3, ESR, URIC #### [address] #### AUGUST, ASO, RA #### [facility] , Rheumatoid Factoron 07-04-19 Rheumatoid Factor 15.3 High <14.0 The [facility] Comment on above: Result Comment: Perf ormed at: [facility] [address] [id number] Termite Technician: Antonino Belle PhD, Phone: [phone] Performed By: #### C MP, MG, CBC, CRP, T4F, TSH3, ESR, URIC #### [address] #### AUGUST, ASO, RA #### [facility] , Thyroid Stimulating Hormoneo n 07-04-2023 TSH Qn 1.35 m[IU]/L Normal 0.45-5.33 The [facility] Comment on above: Result Comment: PERF ORMED BY: [place] [address] PATHOLOGIST [employer]AM WORKER JODY SOLANO M.D. Performed By: #### C MP, MG, CBC, CRP, T4F, TSH3, ESR, URIC #### [place] [address] [place] #### AUGUST, ASO, RA #### [facility] , Uric Acidon 07-04-2023 Urate [Mass/Vol] 4.0 mg/dL Normal 2.3-6.6 The [facility] Comment on above: Performed By: #### C MP, MG, CBC, CRP, T4F, TSH3, ESR, URIC #### [facility] [address] #### AUGUST, ASO, RA #### [facility] , Echocardiogramon 02-26-2023 Echocardiography [facility] [address], [address], [place] [address] TRANSTHORACIC ECHOCARDIOGRAM REPORT Patient Name: LAVONNE Shruti Physician: [id number] Shy Wolf MD, [facility] Study Date: 02/26/2023 Referring SHY WOLF Physician: MRN/PID: [id number] PCP: Suhas Garrett MD Accession/Order#: [id number] Department [facility] Location: Date of : 1935 Fellow: Gender: F Nurse: Admit Date: Rubber Process Hand: Sheridan Lemus [facility], [facility] Height: 157.48 cm CC Report to: Weight: 67.13 kg Study Type: Echocardiogram BSA: 1.68 m2 Blood Pressure: 122 /76 mmHg Diagnosis/ICD: I35.0-Nonrheumatic aortic (valve) stenosis; R01.1-Cardiac murmur, unspecified Indication: HTN, Hyperlipidemia, Overweight, Hypothyroid, Polymyalgia Rheumatica Procedure/CPT: Echo Complete w Full [id number] Study Detail: The following Echo studies were [...] mmHg PIEDV: 2.50 m/s PADP: 28.0 mmHg [id number] Shy Wolf MD, FACC Electronically signed on 03/01/2023 at 2:16:46 PM Final Normal [facility] Office Visit (Cardiology)on 12-24-2022 Follow-up visit Diagnoses/Problems Assessed Aortic stenosis (424.1) (I35.0) Murmur, cardiac (785.2) (R01.1) Essential hypertension (401.9) (I10) Hyperlipidemia (272.4) (E78.5) Overweight with body mass index (BMI) of 27 to 27.9 in adult (278.02,V85.23) (E66.3,Z68.27) Never smoker Hypothyroidism (244.9) (E03.9) PMR (polymyalgia rheumatica) (725) (M35.3) Orders Aortic stenosis, Murmur, cardiac Echocardiogram; Status:Hold For - Scheduling,Retrospec tive Authorization; Requested for:[id number]; Essential hypertension, Hyperlipidemia Changed: From Aspirin EC 81 MG TBEC TAKE 1 TABLET To Aspirin 81 MG Oral Tablet Delayed Release TAKE 1 TABLET DAILY Overweight with body mass index (BMI) of 27 to 27.9 in adult Healthy Weight Tips; Status:Complete - Retrospective Authorization; Done: [id number] Some eating tips that can help you lose weight.; Status:Complete - Retrospective Authorization; Done: [id number] SocHx: Never smoker Tobacco Use Screening; Status:Complete; Done: [id number] Patient Instructions Please bring all medicines, vitamins, [...] is being tapered gradually Shy Wolf MD, [facility] Past Medical History Problems History of Carotid [...] Multi Vitamin Oral TabletTAKE 1 TABLET DAILY. [place]-3 Fish Oil 1000 MG Oral CapsuleTAKE 1 [...] negative for complaint. Vitals Vital Signs Recorded: [id number] 11:32AM Heart Rate68, R Radial Xhrqustf232, RUE, Sitting Cpqauldsg62, RUE, Sitting Height5 ft 2 in Qyorli261 lb BMI Fklyuubqgh43.07 kg/m2 BSA Calculated1.68 Tobacco Useb) No PHQ-2 [...] distress a (more content not included)... Normal [facility] Tobacco Screening.on 023 Adult depression screening assessment No [employer] 250 DO Work Phone: Fall risk assessment a) No falls within the last year [employer] 250 DO Work Phone: Tobacco use status CPHS b) No [employer] 250 DO Work Phone: Complete Blood Count Auto Di ffon 02-22-2022 Basophils (Bld) [#/Vol] 0.995213188 10*3/uL Normal 0.0-0.2 10*3/uL [facility] Other Basophils/100 WBC (Bld) 0.700 % . % [facility] Other Eosinophils (Bld) [#/Vol] 0.324195889 10*3/uL Normal 0.0-0.45 10*3/uL [facility] Other Eosinophils/100 WBC (Bld) 0.700 % . % [facility] Other Erythrocyte distribution width (RBC) [Ratio] 13.500 % Normal 11.9-15.3 % [facility] Other Hematocrit (Bld) [Volume fraction] 38.400 % Normal 34.0-46.4 % [facility] Other Hemoglobin (Bld) [Mass/Vol] 12.929517 g/dL Normal 11.8-15.4 g/dL [facility] Other Lymphocytes (Bld) [#/Vol] 0.125894752 10*3/uL Low 1.00-4.8 10*3/uL [facility] Other Lymphocytes/100 WBC (Bld) 12.600 % . % [facility] Other MCH (RBC) [Entitic mass] 33.7000 pg Normal 24.7-34.3 pg [facility] Other MCV (RBC) [Entitic vol] 100.4000 fL High 80-100 fL [facility] Other Monocytes (Bld) [#/Vol] 0.471717159 10*3/uL Normal 0.0-0.8 10*3/uL [facility] Other Monocytes/100 WBC (Bld) 6.800 % . % [facility] Other Neutrophils (Bld) [#/Vol] 5.406442305 10*3/uL Normal 1.8-7.7 10*3/uL [facility] Other Neutrophils/100 WBC (Bld) 79.200 % . % [facility] Other Platelet mean volume (Bld) [Entitic vol] 9.4000 fL Normal 6.3-10.7 fL [facility] Other Platelets (Bld) [#/Vol] 223 10*3/uL Normal 150-450 10*3/uL [facility] Other RBC (Bld) [#/Vol] 3.7395594818 10*6/uL Normal 3. 60-5.00 10*6/uL [facility] Other WBC (Bld) [#/Vol] 6.440081618 10*3/uL Normal 3.8 -11.6 10*3/uL [facility] Other Complete Blood Count Auto Diff 6.6 10*3/uL Normal 4.5-11.0 10*3/uL [facility] Other Complete Blood Count Auto Diff 33.6 g/dL Normal 32.0-35.0 g/dL [facility] Other Complete Blood Count Auto Diff 0.1 % Normal 0-0.5 % [facility] Other Erythrocyte Sedimentation Ra amy 02-22-2022 ESR (Bld) [Velocity] 28 mm/h Normal 0-29 [facility] Other [facility] Carotid Artery Dupl ex Ultrasoundon 02-21-2022 US.doppler Carotid arteries [facility] [place] Work Phone: COVID Quick Testingon 2021 Result Positive [facility] Other Falls Screening (Age 18+)on 12-26-2021 Fall risk assessment a) No falls within the last year [facility] [employer] 250 DO Work Phone: Office Visit (Cardiology)on [...] Multi Vitamin Oral TabletTAKE 1 TABLET DAILY. [place] 3 500 CAPSTAKE 1 CAPSULE Daily predniSONE 5 MG Oral Jaufnt3ZB 7.5MG BY MOUTH ONE DAILY ALTERNATING EVERY OTHER DAY Allergies Medication amoxicillin Hives;; Recorded By: Kayla Orr; 10/17/2021 10:50:34 AM Dilantin CAPS Rash; Recorded By: Kayla Orr; 10/17/2021 10:50:34 AM Fosamax eye pain; Recorded By: Kayla Orr; 10/17/2021 10:50:34 AM Depakote ER TB24 Recorded By: Kayla Orr; 10/17/2021 10:50:34 AM Vitals Vital Signs Recorded: [id number] 11:04AMRecorded: 56Cpp4306 11:00AM Heart Rate56, R Vlkmfx18, R Radial Kpdprnqe960, LUE, Ywixzis679, RUE Desodntdo74, LUE, Gzvlkbq35, RUE Height5 ft 2 in5 ft 2 in Ghgpeo417 lb 143 lb BMI Zjpriknbsw72.16 kg/m226.16 kg/m2 BSA Calculated1.661.66 Falls Screening (Age 18+)a) No falls within the last year Signatures Electronically signed by : Shy Wolf MD; Dec 26 2021 4:02PM EST (Author) Normal [facility] Tobacco Screening.on 022 Adult depression screening assessment No [facility] Work Phone: Fall risk assessment a) No falls within the last year [facility] Work Phone: Tobacco use status CPHS b) No [facility] Work Phone: Vital Signs Date Time Vital Sign Value 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 Facility 07-04-2023 11:15-0500 Body height 157.48 cm Suhas Garrett Other [facility] Other 07-04-2023 11:15-0500 Body mass index (BMI) [Ratio] 28.53 kg/m2 Suhas Garrett Other [facility] Other 07-04-2023 11:15-0500 Body weight 70.76 kg Suhas Garrett Other [facility] Other 07-04-2023 11:15-0500 Diastolic blood pressure 84 mm[Hg] Suhas Ugo Other [facility] Other 07-04-2023 11:15-0500 Respiratory rate 20 /min Suhas Mayoadan Other [facility] Other 07-04-2023 11:15-0500 SaO2% (BldA) [Mass fraction] 99 % Suhas Mayoadan Other [facility] Other 07-04-2023 11:15-0500 Systolic blood pressure 150 mm[Hg] Suhas Mayoadan Other [facility] Other 06-19-2023 11:09-0500 Body height 157.5 cm Shy Wolf MD Work Phone: [facility] 06-19-2023 11:09-0500 Body mass index (BMI) [Ratio] 27.98 kg/m2 Shy Wolf MD Work Phone: [facility] 06-19-2023 11:09-0500 Body weight 69.4 kg Shy Wolf MD Work Phone: [facility] 06-19-2023 11:09-0500 Diastolic blood pressure 76 mm[Hg] Shy Wolf MD Work Phone: [facility] 06-19-2023 11:09-0500 Heart rate 60 /min Shy Wolf MD Work Phone: [facility] 06-19-2023 11:09-0500 Systolic blood pressure 120 mm[Hg] Shy Wolf MD Work Phone: [facility] 05-30-2023 11:00-0500 Body height 157.48 cm Suhas Garrett Other [facility] Other 05-30-2023 11:00-0500 Body mass index (BMI) [Ratio] 27.8 kg/m2 Suhas Garrett Other [facility] Other 05-30-2023 11:00-0500 Body weight 68.95 kg Suhas Garrett Other [facility] Other 05-30-2023 11:00-0500 Diastolic blood pressure 80 mm[Hg] Suhas Garrett Other [facility] Other 05-30-2023 11:00-0500 Respiratory rate 18 /min Suhas Garrett Other [facility] Other 05-30-2023 11:00-0500 SaO2% (BldA) [Mass fraction] 96 % Suhas Garrett Other [facility] Other 05-30-2023 11:00-0500 Systolic blood pressure 122 mm[Hg] Suhas Garrett Other [facility] Other 02-28-2023 10:30-0400 Body height 157.48 cm Suhas Garrett Other [facility] Other 02-28-2023 10:30-0400 Body mass index (BMI) [Ratio] 27.98 kg/m2 Suhas Garrett Other [facility] Other 02-28-2023 10:30-0400 Body weight 69.4 kg Suhas Garrett Other [facility] Other 02-28-2023 10:30-0400 Diastolic blood pressure 76 mm[Hg] Suhas Garrett Other [facility] Other 02-28-2023 10:30-0400 Respiratory rate 16 /min Suhas Garrett Other [facility] Other 02-28-2023 10:30-0400 SaO2% (BldA) [Mass fraction] 91 % Suhas Garrett Other [facility] Other 02-28-2023 10:30-0400 Systolic blood pressure 134 mm[Hg] Suhas Garrett Other [facility] Other 12-24-2022 11:32-0400 Body height 157.48 cm Suhas Garrett Work Phone: [facility] 250 DO Work Phone: 12-24-2022 11:32-0400 Body mass index (BMI) [Ratio] 27.07 kg/m2 Suhas Mayoadan Work Phone: [facility] 250 DO Work Phone: 12-24-2022 11:32-0400 Body surface area Derived from formula 1.68 m2 Suhas Garrett Work Phone: [facility] 250 DO Work Phone: 12-24-2022 11:32-0400 Body weight 67.13 kg Suhas Garrett Work Phone: [facility] 250 DO Work Phone: 12-24-2022 11:32-0400 Diastolic blood pressure 76 mm[Hg] Suhas Dalton Gaeladan Work Phone: [facility] [place] 250 DO Work Phone: 12-24-2022 11:32-0400 Heart rate 68 /min Suhas Garrett Work Phone: [facility] [place] 250 DO Work Phone: 12-24-2022 11:32-0400 Systolic blood pressure 118 mm[Hg] Suhasraquel Garrett Work Phone: [facility] [employer] [facility] 250 DO Work Phone: 12-06-2022 10:30-0400 Body height 157.48 cm Suhas Garrett Other [facility] Other 12-06-2022 10:30-0400 Body mass index (BMI) [Ratio] 27.98 kg/m2 Suhas Garrett Other [facility] Other 12-06-2022 10:30-0400 Body weight 69.4 kg Suhas Garrett Other [facility] Other 12-06-2022 10:30-0400 Diastolic blood pressure 70 mm[Hg] Suhas Garrett Other [facility] Other 12-06-2022 10:30-0400 Respiratory rate 16 /min Suhas Garrett Other [facility] Other 12-06-2022 10:30-0400 SaO2% (BldA) [Mass fraction] 98 % Suhas Garrett Other [facility] Other 12-06-2022 10:30-0400 Systolic blood pressure 146 mm[Hg] Suhas Garrett Other [facility] Other 09-20-2022 11:45-0400 Body height 157.48 cm Suhas Garrett Other [facility] Other 09-20-2022 11:45-0400 Body mass index (BMI) [Ratio] 26.34 kg/m2 Suhasraquel Garrett Other [facility] Other 09-20-2022 11:45-0400 Body weight 65.32 kg Suhas Gaeladan Other [facility] Other 09-20-2022 11:45-0400 Diastolic blood pressure 70 mm[Hg] Suhas Mayoadan Other [facility] Other 09-20-2022 11:45-0400 Respiratory rate 16 /min Suhas Garrett Other [facility] Other 09-20-2022 11:45-0400 SaO2% (BldA) [Mass fraction] 98 % Suhas Garrett Other [facility] Other 09-20-2022 11:45-0400 Systolic blood pressure 130 mm[Hg] Suhas Ugo Other [facility] Other 07-22-2022 11:30-0500 Body height 157.48 cm Suhas Garrett Other [facility] Other 07-22-2022 11:30-0500 Body mass index (BMI) [Ratio] 26.85 kg/m2 Suhas Garrett Other [facility] Other 07-22-2022 11:30-0500 Body weight 66.59 kg Suhas Garrett Other [facility] Other 07-22-2022 11:30-0500 Diastolic blood pressure 70 mm[Hg] Suhas Garrett Other [facility] Other 07-22-2022 11:30-0500 Respiratory rate 16 /min Suhas Garrett Other [facility] Other 07-22-2022 11:30-0500 SaO2% (BldA) [Mass fraction] 98 % Suhas Mayoadan Other [facility] Other 07-22-2022 11:30-0500 Systolic blood pressure 122 mm[Hg] Suhas Garrett Other [facility] Other 04-17-2022 11:45-0500 Body height 157.48 cm Suhas Garertt Other [facility] Other 04-17-2022 11:45-0500 Body mass index (BMI) [Ratio] 26.88 kg/m2 Suhas Garrett Other [facility] Other 04-17-2022 11:45-0500 Body weight 66.68 kg Suhas Garrett Other [facility] Other 04-17-2022 11:45-0500 Diastolic blood pressure 72 mm[Hg] Suhas Ugo Other [facility] Other 04-17-2022 11:45-0500 Respiratory rate 16 /min Suhas Mayoadan Other [facility] Other 04-17-2022 11:45-0500 SaO2% (BldA) [Mass fraction] 99 % Suhas Garrett Other [facility] Other 04-17-2022 11:45-0500 Systolic blood pressure 138 mm[Hg] Suhas Garrett Other [facility] Other 02-22-2022 10:15-0400 Body height 157.48 cm Suhas Garrett Other [facility] Other 02-22-2022 10:15-0400 Body mass index (BMI) [Ratio] 27.07 kg/m2 Suhas Garrett Other [facility] Other 02-22-2022 10:15-0400 Body weight 67.13 kg Suhas Garrett Other [facility] Other 02-22-2022 10:15-0400 Diastolic blood pressure 70 mm[Hg] Suhas Garrett Other [facility] Other 02-22-2022 10:15-0400 Respiratory rate 16 /min Suhas Garrett Other [facility] Other 02-22-2022 10:15-0400 SaO2% (BldA) [Mass fraction] 97 % Suhas Garrett Other [facility] Other 02-22-2022 10:15-0400 Systolic blood pressure 122 mm[Hg] Suhas Garrett Other [facility] Other 02-21-2022 10:45-0400 70 1 Suhas Garrett Work Phone: [facility] [address] [place] Work Phone: Comment on above: [id number] 02-14-2022 15:45-0400 Body height 157.48 cm Suhas Garrett Other [facility] Other 02-14-2022 15:45-0400 Body mass index (BMI) [Ratio] 26.7 kg/m2 Suhas Garrett Other [facility] Other 02-14-2022 15:45-0400 Body weight 66.23 kg Suhas Garrett Other [facility] Other 02-14-2022 15:45-0400 Diastolic blood pressure 72 mm[Hg] Suhas Garrett Other [facility] Other 02-14-2022 15:45-0400 Respiratory rate 16 /min Suhas Garrett Other [facility] Other 02-14-2022 15:45-0400 SaO2% (BldA) [Mass fraction] 96 % Suhas Garrett Other [facility] Other 02-14-2022 15:45-0400 Systolic blood pressure 132 mm[Hg] Suhas Garrett Other [facility] Other 12-26-2021 11:04-0400 Body height 157.48 cm Suhas Garrett Work Phone: [facility] 250 DO Work Phone: 12-26-2021 11:04-0400 Body mass index (BMI) [Ratio] 26.16 kg/m2 Suhas Mayos Work Phone: [facility] 250 DO Work Phone: 12-26-2021 11:04-0400 Body surface area Derived from formula 1.66 m2 Suhas Garrett Work Phone: [facility] 250 DO Work Phone: 12-26-2021 11:04-0400 Body weight 64.86 kg Suhas Garrett Work Phone: [facility] 250 DO Work Phone: 12-26-2021 11:04-0400 Diastolic blood pressure 68 mm[Hg] Suhas Garrett Work Phone: [facility] 250 DO Work Phone: 12-26-2021 11:04-0400 Heart rate 56 /min Suhas Garrett Work Phone: [facility] 250 DO Work Phone: 12-26-2021 11:04-0400 Systolic blood pressure 126 mm[Hg] Suhas Garrett Work Phone: [facility] 250 DO Work Phone: 12-26-2021 11:00-0400 Diastolic blood pressure 70 mm[Hg] Suhas Garrett Work Phone: [facility] 250 DO Work Phone: 12-26-2021 11:00-0400 Systolic blood pressure 130 mm[Hg] Suhas Garrett Work Phone: [facility] 250 DO Work Phone: 12-13-2021 11:39-0400 Diastolic blood pressure 80 mm[Hg] Suhas Garrett Work Phone: [facility] Work Phone: 12-13-2021 11:39-0400 Systolic blood pressure 170 mm[Hg] Suhas Garrett Work Phone: [facility] Work Phone: 12-13-2021 11:22-0400 Diastolic blood pressure 80 mm[Hg] Suhas Dalton Garrett Work Phone: [facility] Work Phone: 12-13-2021 11:22-0400 Systolic blood pressure 158 mm[Hg] Suhas Dalton Garrett Work Phone: [facility] Work Phone: 12-13-2021 11:17-0400 Body height 157.48 cm Suhas Hoffman Ugo Work Phone: [facility] Work Phone: 12-13-2021 11:17-0400 Body mass index (BMI) [Ratio] 26.52 kg/m2 Suhas Dalton Garrett Work Phone: [facility] Work Phone: 12-13-2021 11:17-0400 Body surface area Derived from formula 1.67 m2 Suhas Dalton Garrett Work Phone: [facility] Work Phone: 12-13-2021 11:17-0400 Body weight 65.77 kg Suhas Garrett Work Phone: [facility] Work Phone: 12-13-2021 11:17-0400 Diastolic blood pressure 80 mm[Hg] Suhas Garrett Work Phone: [facility] Work Phone: 12-13-2021 11:17-0400 Heart rate 60 /min Suhas Dalton Garrett Work Phone: [facility] Work Phone: 12-13-2021 11:17-0400 Systolic blood pressure 160 mm[Hg] Suhas Mayoadan Work Phone: [facility] Work Phone: 10-01-2021 13:30-0400 Body height 157.48 cm Suhsa Garrett Other [facility] Other 10-01-2021 13:30-0400 Body mass index (BMI) [Ratio] 26.34 kg/m2 Suhasraquel Mayoadan Other [facility] Other 10-01-2021 13:30-0400 Body weight 65.32 kg Suhas Gaeladan Other [facility] Other 10-01-2021 13:30-0400 Diastolic blood pressure 72 mm[Hg] Suhas Garrett Other [facility] Other 10-01-2021 13:30-0400 Respiratory rate 18 /min Suhas Garrett Other [facility] Other 10-01-2021 13:30-0400 SaO2% (BldA) [Mass fraction] 99 % Suhas Garrett Other [facility] Other 10-01-2021 13:30-0400 Systolic blood pressure 130 mm[Hg] Suhas Garrett Other [facility] Other 08-02-2021 13:30-0500 Body height 157.48 cm Suhas Garrett Other [facility] Other 08-02-2021 13:30-0500 Body mass index (BMI) [Ratio] 26.52 kg/m2 Suhas Garrett Other [facility] Other 08-02-2021 13:30-0500 Body weight 65.77 kg Suhas Garrett Other [facility] Other 08-02-2021 13:30-0500 Diastolic blood pressure 70 mm[Hg] Suhas Garrett Other [facility] Other 08-02-2021 13:30-0500 Respiratory rate 16 /min Suhasraquel Mayoadan Other [facility] Other 08-02-2021 13:30-0500 SaO2% (BldA) [Mass fraction] 99 % Suhasraquel Mayoadan Other [facility] Other 08-02-2021 13:30-0500 Systolic blood pressure 118 mm[Hg] Suhas Garrett Other [facility] Other 04-26-2021 13:30-0500 Body height 157.48 cm Suhasraquel Mayoadan Other [facility] Other 04-26-2021 13:30-0500 Body mass index (BMI) [Ratio] 25.97 kg/m2 Suhas Garrett Other [facility] Other 04-26-2021 13:30-0500 Body weight 64.41 kg Suhasraquel Garrett Other [facility] Other 04-26-2021 13:30-0500 Diastolic blood pressure 74 mm[Hg] Suhas Garrett Other [facility] Other 04-26-2021 13:30-0500 Respiratory rate 17 /min Suhas Garrett Other [facility] Other 04-26-2021 13:30-0500 SaO2% (BldA) [Mass fraction] 98 % Suhas Garrett Other [facility] Other 04-26-2021 13:30-0500 Systolic blood pressure 120 mm[Hg] Suhas Garrett Other [facility] Other Encounters Encounter Date Encounter Type Care Provider Facility Start: 05-25-2024 End: 05-25-2024 ambulatory Suhas Garrett Facility:[facility] Start: 04-16-2024 End: 04-16-2024 ambulatory [facility] Start: 02-23-2024 End: 02-23-2024 ambulatory Gloria Weston MD Facility: [facility] Start: 02-11-2024 End: 02-11-[address] [facility] Start: 11-24-2023 End: 11-24-2023 ambulatory Gloria Weston MD Facility: [facility] Start: 11-17-2023 End: 11-17-2023 ambulatory Gloria Weston MD Facility: [facility] Start: 10-20-2023 End: 10-20-2023 ambulatory Gloria Weston MD Facility: [facility] Start: 10-14-2023 End: 10-14-2023 ambulatory Suhas Garrett Facility:[facility] Start: 09-29-2023 End: 09-29-2023 ambulatory Gloria Weston MD Facility: [facility] Start: 09-08-2023 End: 09-08-2023 ambulatory Gloria Weston MD Facility: [facility] Start: 09-03-2023 End: 09-03-2023 ambulatory Suhas Garrett Facility:[facility] Start: 08-25-2023 End: 08-25-2023 ambulatory Gloria Weston MD Facility: [facility] Start: 07-18-2023 End: 07-18-2023 ambulatory Suhas Garrett Other [facility] Other Start: 07-18-2023 Telephone encounter Suhas Garrett [facility] Start: 07-15-2023 End: 07-15-2023 ambulatory Suhas Garrett Other [employer] Other Start: 07-15-2023 Telephone encounter Suhasraquel Mayoadan [facility] [place] Start: 07-10-2023 End: 07-10-2023 ambulatory Suhas Gaeladan Other [facility] Other Start: 07-10-2023 Telephone encounter Suhasraquel Garrett [facility] [place] Start: 07-08-2023 End: 07-08-2023 ambulatory Suhas Mayoadan Facility:[facility] Start: 07-07-2023 End: 07-07-2023 ambulatory Suhas Gaeladan Other [facility] Other Start: 07-07-2023 Telephone encounter Suhas Ugo [facility] [place] Start: 07-04-2023 Office outpatient vi sit 15 minutes Suhas Garrett [facility] [place] Start: 07-04-2023 End: 07-04-2023 ambulatory Suhas Gaeladan [facility] Other Start: 06-19-2023 Telephone encounter Suhasraquel Garrett [facility] [place] Start: 06-19-2023 End: 06-19-2023 Office outpatient visit 25 minutes Shy Wolf MD Work Phone: [facility] Comment on above: Aortic valve stenosi s, etiology of cardiac valve disease unspecified; Essential hypertension; Hyperlipidemia, unspecified hyperlipidemia type; Never smoked any substance Start: 06-19-2023 End: 06-19-2023 ambulatory SHY WOLF [facility] Other Start: 05-30-2023 End: 05-30-2023 ambulatory Suhas Garrett Other [facility] Other Start: 05-30-2023 Office outpatient vi sit 25 minutes Suhas Garrett [facility] [place] Start: 05-28-2023 End: 05-28-2023 ambulatory Suhas Garrett Other [facility] Other Start: 05-28-2023 Telephone encounter Suhas Garrett [facility] [place] Start: 04-23-2023 End: 04-23-2023 ambulatory Suhas Garrett Other [facility] Other Start: 04-23-2023 Telephone encounter Suhas Garrett [facility] [place] Start: 04-18-2023 End: 04-18-2023 ambulatory Suhas Garrett Other [employer] Other Start: 04-18-2023 Telephone encounter Suhas Garrett [facility] [place] Start: 03-02-2023 Chart Update Suhas Garrett Work Phone: [facility] [address] DO Work Phone: Start: 02-28-2023 End: 02-28-2023 ambulatory Suhas Garrett Other [place] [employer] Other Start: 02-28-2023 Office outpatient vi sit 15 minutes Suhas Garrett [facility] [place] Start: 02-26-[address] Suhas Garrett Facility:[id number] Start: 01-27-2023 End: 01-27-2023 ambulatory Suhas Garrett Other [place] [employer] Other Start: 01-27-2023 Telephone encounter Suhas Garrett [facility] [place] Start: 12-24-2022 Office outpatient vi sit 25 minutes [email or web address] Work Phone: Start: 12-24-[address] Shy Wolf Facility: Start: 12-06-2022 End: 12-06-2022 ambulatory Suhas Garrett Other [place] [employer] Other Start: 12-06-2022 Office outpatient vi sit 15 minutes Suhas Mayos [facility] [place] Start: 09-20-2022 End: 09-20-2022 ambulatory Suhas Mayos Other [facility] Other Start: 09-20-2022 Office outpatient vi sit 15 minutes Suhas Mayos [facility] [place] Start: 08-14-2022 End: 08-14-2022 ambulatory Suhas Mayos Other [facility] Other Start: 08-14-2022 Telephone encounter Suhas Mayos [facility] [place] Start: 07-22-2022 End: 07-22-2022 ambulatory Suhas Mayos Other [facility] Other Start: 07-22-2022 Office outpatient vi sit 15 minutes Suhas Mayos [facility] [place] Start: 04-17-2022 End: 04-17-2022 ambulatory Suhas Mayos Other [facility] Other Start: 04-17-2022 Office outpatient vi sit 15 minutes Suhas Mayos [facility] [place] Start: 04-10-2022 End: 04-10-2022 ambulatory Suhas Mayos Other [facility] Other Start: 04-10-2022 Telephone encounter Suhas Mayos [facility] [place] Start: 04-03-2022 End: 04-03-2022 ambulatory Suhas Mayos Other [facility] Other Start: 04-03-2022 Telephone encounter Suhas Mayos [facility] [place] Start: 04-02-2022 End: 04-02-2022 ambulatory Suhas Mayos Other [facility] Other Start: 04-02-2022 Telephone encounter Suhas Kuns [facility] [place] Start: 02-26-2022 End: 02-26-2022 ambulatory Suhas Garrett Other [facility] Other Start: 02-26-2022 Telephone encounter Suhasraquel Garrett [facility] [place] Start: 02-25-2022 End: 02-25-2022 ambulatory Suhas Mayoadan Other [facility] Other Start: 02-25-2022 Telephone encounter Suhasraquel Garrett [facility] [place] Start: 02-22-2022 End: 02-22-2022 ambulatory Suhas Garrett Other [employer] Other Start: 02-22-2022 Office outpatient vi sit 25 minutes [facility] Start: 02-21-2022 Patient encounter procedure Suhas Garrett Work Phone: [facility] [address] [place] Work Phone: Start: 02-20-2022 End: 02-21-2022 ambulatory MAYO CARBAJAL Facility: Start: 02-14-2022 End: 02-14-2022 ambulatory Suhas Garrett Other [facility] Other Start: 02-14-2022 Office outpatient vi sit 25 minutes Suhas [facility] Start: 01-11-2022 End: 01-11-2022 ambulatory Suhas Garrett Other [facility] Other Start: 01-11-2022 Nursing evaluation o f patient and report [facility]has [facility] Start: 01-11-2022 Telephone encounter [facility] Start: 12-26-2021 Office outpatient vi sit 10 minutes Suhas Garrett Work Phone: [facility] 250 DO Work Phone: Start: 12-26-[address] Suhas Garrett Facility: Start: 12-20-2021 End: 12-20-2021 ambulatory Suhas Garrett Other [employer] Other Start: 12-20-2021 Telephone encounter Suhas Garrett [facility] [place] Start: 12-13-2021 Office outpatient vi sit 25 minutes Suhas Garrett Work Phone: [facility] Work Phone: Start: 11-02-2021 End: 11-02-2021 ambulatory Suhas Garrett Other [facility] Other Start: 11-02-2021 Telephone encounter Suhas Garrett [facility] [place] Start: 10-01-2021 End: 10-01-2021 ambulatory Suhas Garrett Other [employer] Other Start: 10-01-2021 Office outpatient vi sit 15 minutes Suhas Garrett [facility] [place] Start: 09-10-2021 End: 09-10-2021 ambulatory Suhas Garrett Other [employer] Other Start: 09-10-2021 Telephone encounter Suhas Garrett [facility] [place] Start: 08-20-2021 End: 08-20-2021 ambulatory Suhas Garrett Other [facility] Other Start: 08-20-2021 Telephone encounter Suhas Garrett [facility] [place] Start: 08-02-2021 End: 08-02-2021 ambulatory Suhas Garrett Other [facility] Other Start: 08-02-2021 Office outpatient vi sit 15 minutes Suhas Garrett [facility] [place] Start: 07-25-2021 End: 07-25-2021 ambulatory Suhas Garrett Other [facility] Other Start: 07-25-2021 Telephone encounter Suhas Garrett [facility] Start: 05-08-2021 End: 05-08-2021 ambulatory Suhas Garrett Other [facility] Other Start: 05-08-2021 Telephone encounter Suhas Garrett [facility] Start: 04-26-2021 End: 04-26-2021 ambulatory Suhas Garrett Other [facility] Other Start: 04-26-2021 Office outpatient vi sit 25 minutes Suhas Garrett [facility] Procedures Date Procedure Procedure Detail [...] DTaP/Tdap/Td Vaccines (2 - Td or Tdap) [facility] Start: 03-16-2024 End: 03-16-2024 Patient encounter procedure 03/16/2024 11:20 AM EDT Office Visit [facility] [address] [place] [address] Shy Wolf MD [address] [facility] [address] [place] [address] [facility] Start: 02-11-2024 End: 02-11-2024 Patient encounter procedure 02/11/2024 12:30 PM EDT Appointment [facility] [address] [facility] [place] [address] [facility] Start: 02-08-2024 End: 06-19-2025 [facility] Transthoracic Transthoracic Echo (TTE) Complete Echocardiography Routine Aortic valve stenosis, etiology of cardiac valve disease unspecified Expected: 02/08/2024 (Approximate), Expires: 06/19/2025 [facility] Service Area Work Phone: Comment on above: Expected: 02/08/2024 (Approximate), Expires: 06/19/2025 Start: 06-19-2023 FUV, Provider: Shy Wolf, Status: Pen, Time: 11:00 AM FUV, Provider: Shy Wolf, Status: Pen, Time: 11:00 AM [facility] 250 DO Work Phone: Start: 05-28-2023 COVID-19 Vaccine (5 - Moderna series) COVID-19 Vaccine (5 - Moderna series) [facility] Start: 02-26-2023 ECHO, Provider: SAMUEL YII ULTRASOUND 01,[id number], Status: Pen, Time: 10:45 AM ECHO, Provider: SAMUEL YII ULTRASOUND 01,[id number], Status: Pen, Time: 10:45 AM [facility] 250 DO Work Phone: Start: 12-24-2022 FUV, Provider: Shy Wolf, Status: Pen, Time: 11:20 AM FUV, Provider: Shy Wolf, Status: Pen, Time: 11:20 AM [facility] Work Phone: Start: 02-21-2022 CAROTID, Provider: SAMEUL YII ULTRASOUND 01,[id number], Status: Pen, Time: 12:30 PM CAROTID, Provider: SAMUEL HHVI ULTRASOUND 01,[id number], Status: Pen, Time: 12:30 PM [facility] Work Phone: Start: 02-21-2022 ECHO, Provider: SAMUEL HHVI ULTRASOUND 01,[id number], Status: Pen, Time: 10:45 AM ECHO, Provider: SAMUEL HHVI ULTRASOUND 01,[id number], Status: Pen, Time: 10:45 AM [facility] Work Phone: Start: 01-17-2022 CAROTID, Provider: SAMUEL HHVI ULTRASOUND 01,[id number], Status: Pen, Time: 2:30 PM CAROTID, Provider: SAMUEL HHVI ULTRASOUND 01,[id number], Status: Pen, Time: 2:30 PM [facility] Work Phone: Start: 01-17-2022 ECHO, Provider: SAMUEL HHVI ULTRASOUND 01,[id number], Status: Pen, Time: 1:30 PM ECHO, Provider: SAMUEL HHVI ULTRASOUND 01,[id number], Status: Pen, Time: 1:30 PM [facility] Work Phone: Start: 12-26-2021 NURSEVST, Provider: MAGDA DANIEL [employer] SERVICE HELPER 1,[id number], Status: Pen, Time: 11:00 AM NURSEVST, Provider: MAGDA DANIEL [employer] SERVICE HELPER 1,[id number], Status: Pen, Time: 11:00 AM [facility] Work Phone: Start: 1935 Lipid panel Lipid Panel [facility] Start: 1935 Medicare Annual Wellness Visit Medicare Annual Wellness Visit (AWV) [facility] Start: 1935 Thyroid stimulating hormone measurement TSH Level [facility] Immunizations Immunization Date Immunization Notes Care Provider Fa cility 04-17-2022 Moderna COVID-19 Bivalent 50 MCG/0.5ML Intramuscular Suspension Suhas [facility] Work Phone: 03-21-2022 Fluad Quadrivalent 0 .5 ML Intramuscular Prefilled Syringe Suhas Garrett Work Phone: [facility] 250 DO Work Phone: 03-21-2022 influenza, seasonal, injectable Suhas Garrett Other [facility] Other 11-14-2021 Moderna COVID-19 Vaccine 100 MCG/0.5ML Intramuscular Suspension Suhas P Gaels Work Phone: [facility] Work Phone: 04-05-2021 Moderna COVID-19 Vaccine 100 MCG/0.5ML Intramuscular Suspension Suhas P Gaels Work Phone: [facility] Work Phone: 03-19-2021 influenza, seasonal, injectable Suhas Garrett Other [facility] Other 08-08-2020 Moderna COVID-19 Vaccine 100 MCG/0.5ML Intramuscular Suspension Suhas Garrett Work Phone: [facility] Work Phone: 07-11-2020 Moderna COVID-19 Vaccine 100 MCG/0.5ML Intramuscular Suspension Suhas P Ugo Work Phone: [facility] Work Phone: 04-28-2020 pneumococcal polysaccharide vaccine, 23 valent Suhas Garrett Other [facility] Other 03-06-2020 Seasonal trivalent influenza vaccine, adjuvanted, preservative free Suhas Garrett Work Phone: [facility] Work Phone: 03-06-2020 influenza, seasonal, injectable Suhas Garrett Other [facility] Other 02-08-2020 influenza virus vaccine, unspecified formulation Suhas Garrett Work Phone: [facility] Work Phone: 02-08-2020 influenza, seasonal, injectable Suhas Garrett Other [facility] Other 05-04-2019 zoster vaccine recombinant Suhas Garrett Other [facility] Other 03-09-2019 influenza, high dose seasonal, preservative-free Suhasraquel Garrett Work Phone: [facility] Work Phone: 03-04-2019 influenza, seasonal, injectable Suhas Garrett Other [facility] Other 02-04-2019 zoster vaccine recombinant Suhas Garrett Other [facility] Other 05-12-2018 tetanus toxoid, redu bety diphtheria toxoid, and acellular pertussis vaccine, adsorbed Suhas Garrett Other [facility] Other 03-16-2018 Seasonal trivalent influenza vaccine, adjuvanted, preservative free Shy Wolf MD Work Phone: [facility] Work Phone: 03-09-2018 influenza virus vaccine, unspecified formulation Suhas Garrett Work Phone: [facility] Work Phone: 04-09-2017 influenza virus vaccine, unspecified formulation Suhas Garrett Work Phone: [facility] Work Phone: 03-28-2017 Seasonal trivalent influenza vaccine, adjuvanted, preservative free Suhas Mayoadan Work Phone: [facility] Work Phone: 05-23-2016 pneumococcal conjuga te vaccine, 13 valent Suhas Garrett Other [facility] Other 04-01-2016 Seasonal trivalent influenza vaccine, adjuvanted, preservative free Suhas P Ugo Work Phone: [facility] Work Phone: 03-09-2016 influenza virus vaccine, unspecified formulation Suhas Garrett Work Phone: [facility] Work Phone: 03-09-2016 pneumococcal conjuga te vaccine, 13 valent Suhas Garrett Work Phone: [facility] Work Phone: 04-07-2015 influenza, injectabl e, quadrivalent, contains preservative Suhas Garrett Work Phone: [facility] Work Phone: 03-09-2015 influenza virus vaccine, unspecified formulation Suhas Garrett Work Phone: [facility] Work Phone: 04-05-2014 influenza, seasonal, injectable, preservative free Suhas Garrett Work Phone: [facility] Work Phone: 03-09-2014 influenza virus vaccine, whole virus Suhas Garrett Work Phone: [facility] Work Phone: 03-23-2013 influenza, seasonal, injectable Suhas Garrett Work Phone: [facility] Work Phone: 03-09-2013 influenza virus vaccine, unspecified formulation Suhas Garrett Work Phone: [facility] Work Phone: 04-14-2012 influenza, injectabl e, quadrivalent, contains preservative Suhas Garrett Other [facility] Other 06-09-2011 influenza virus vaccine, unspecified formulation Suhas Garrett Work Phone: [facility] Work Phone: 06-09-2010 influenza virus vaccine, unspecified formulation Suhas Garrett Work Phone: [facility] Work Phone: 06-09-2009 influenza virus vaccine, unspecified formulation Suhas P Ugo Work Phone: [facility] Work Phone: 05-30-2009 novel [id number], preservative-free, injectable Suhas Garrett Work Phone: [facility] Work Phone: 10-19-2007 varicella virus vaccine Belkys boyd Dalton Garrett Work Phone: [facility] Work Phone: 06-09-2006 pneumococcal polysaccharide vaccine, 23 valent Suhas Hoffman Gaeladan Work Phone: [facility] Work Phone: Payers Date Payer Category Payer Self-pay 2022 Private Health Insurance [id number] 2001 Medicare MEDICARE MEDICAR E RAILROAD [id number] 2001-Present [address] [place] [address] [id number] 2001 Unknown 1959 Medicare [id number] 1959 Private Health Insurance [id number] 1936 Unknown [id number] .593 1936 Unknown [id number] 2.16.840.1.848588.3.579.2 .356 1936 Unknown [id number] 2.16.840.1.312973.3.579.2 .356 1936 Unknown [id number] 2.16.840.1.832590.3.579.2 .1068 1936 Unknown [id number] 2.16.840.1.935142.3.579.2 .1246 1936 Unknown [id number] 2.16.840.1.907643.3.579.2 .196 1936 Unknown [id number] 2.16.840.1.431944.3.579.2 .196 1936 Unknown [id number] 2.16.840.1.959139.3.579.2 .196 1936 Unknown [id number] 2.16.840.1.455552.3.579.2 .196 1936 Unknown [id number] 2.16.840.1.056634.3.579.2 .196 1936 Unknown [id number] 2.16.840.1.643836.3.579.2 .196 1936 Unknown [id number] 2.16.840.1.182636.3.579.2 .196 1936 Unknown [id number] 2.16.840.1.593436.3.579.2 .1244 1936 Unknown [id number] 2.16.840.1.218817.3.579.2 .1244 Unknown [id number] 2.16.840.1.228800.3.579.2 .531 Unknown [id number] 2.16.840.1.356445.3.579.2 .531 Unknown [id number] 2.16.840.1.155319.3.579.2 .531 Unknown [id number] 2.16.840.1.488877.3.579.2 .531 Unknown [id number] 2.16.840.1.663489.3.579.2 .531 Social History Date Type Detail Facility Unknown if ever smoked [facility] Other Start: 06-19-2023 Sex Assigned At N [facility] Other Start: 06-19-2023 Caffeine use Caffeine use [facility] Work Phone: Start: 06-19-2023 Tobacco smoking status NHIS Never smoked tobacco [facility] Work Phone: Start: 06-19-2023 Tobacco use and exposure Smokeless tobacco non-user [facility] Work Phone: Start: 1935 [facility]: Start: 06-09-2023 End: 06-19-2023 Exposure to SARS-CoV-2 (event) Not sure [facility] Clinical Notes 02-15-2015 to 07-18-2023 Note Date & Type Note Facility 07-18-2023 Evaluation note Encounter Date Diagnosis Assessment Notes Jul, PMR (polymya lgia rheumati ca) (ICD-10 - M35.3) [facility] Other 02-06-2024 Evaluation note* Encounter Date Diagnosis Assessment Notes Treatment Notes Treatment Clinical Notes Jul, PMR (polymyalgia rheumatica) (ICD-10 - M35.3) [facility] Other 02-01-2024 Evaluation note* Encounter Date Diagnosis Assessment Notes Treatment Notes Treatment Clinical Notes Jul, Hypothyroidism (ICD-10 - E03.9) [facility] Other 01-29-2024 Evaluation note* Encounter Date Diagnosis Assessment Notes Treatment Notes Treatment Clinical Notes Jun, Hypothyroidism (ICD- 10 - E03.9) Jun, Hyperthyroidism (ICD-10 - E05.90) [facility] Other 01-26-2024 Evaluation note* Encounter Date Diagnosis [...] medications in combination with eachother. Also discussed long chain quiller tender steriod use in regards to her condition. [...] requires sooner she is welcome to call. [facility] Other 01-11-2024 Evaluation note* Encounter Date Diagnosis Assessment Notes Treatment Notes Treatment Clinical Notes Jun, PMR (polymyalgia rheumatica) (ICD-10 - M35.3) [facility] Other 01-11-2024 History of Present illness Narrative* [...] Scribe Attestation By signing my name below, Josue SparksMai Alli Chu LPN , Scribe attest that this documentation has been prepared under the direction and in the presence of Shy Wolf MD. [facility] Work Phone: [phone]) 377-981601-11-2024 Instructions* Patient Instructions* Yevgeniy Cortez MA - [...] time of your visit. [facility] Work Phone: [phone]) 112-741012-22-2023 Evaluation note* Encounter Date Diagnosis Assessment Notes [...] recommend the patient get the RSV vaccine. [facility] Other 12-20-2023 Evaluation note* Encounter Date Diagnosis Assessment Notes Treatment Notes Treatment Clinical Notes May, Hypertension (ICD-10 - I10) May, Hypothyroidism (ICD-10 - E03.9) [facility] Other 11-10-2023 Evaluation note* Encounter Date Diagnosis Assessment Notes Treatment Notes Treatment Clinical Notes Apr, PMR (polymyalgia rheumatica) (ICD-10 - M35.3) [facility] Other 09-22-2023 Evaluation note* Encounter Date Diagnosis Assessment Notes Treatment Notes Treatment Clinical Notes Feb, PMR (polymyalgia rheumatica) (ICD-10 - M35.3) She was encouraged to take 2.5mg daily. Patient is agreeable. Feb, Hypertension (ICD-10 - I10) Blood pressure is satisfactory, she is to follow with cardiology as scheduled. [facility] Other 08-21-2023 Evaluation note* Encounter Date Diagnosis Assessment Notes Treatment Notes Treatment Clinical Notes Jan, Hypertension (ICD-10 - I10) [facility] Other 06-30-2023 Evaluation note* Encounter Date Diagnosis [...] very confident this is due to the [facility]. She will see Dr. Wolf in three weeks therefore was advised to make sure she discusses the swelling with him and see what he would like to do. Patient is agreeable. [facility] Other 04-14-2023 Evaluation note* Encounter Date Diagnosis [...] tablets daily. We will continue to monitor. [facility] Other 03-08-2023 Evaluation note* Encounter Date Diagnosis Assessment Notes Treatment Notes Treatment Clinical Notes Aug, PMR (polymyalgia rheumatica) (ICD-10 - M35.3) [facility] Other 02-13-2023 Evaluation note* Encounter Date Diagnosis [...] states she has an upcoming appointment with pot feeder and she will discuss making medication changes at that time. [facility] Other 11-09-2022 Evaluation note* Encounter Date Diagnosis [...] can cut Apr, Hyperlipidemia (ICD-10 - E78.5) [facility] Other 11-02-2022 Evaluation note* Encounter Date Diagnosis Assessment Notes Treatment Notes Treatment Clinical Notes Apr, PMR (polymyalgia rheumatica) (ICD-10 - M35.3) [facility] Other 10-26-2022 Evaluation note* Encounter Date Diagnosis Assessment Notes Treatment Notes Treatment Clinical Notes Mar, Lumbar back pain (ICD-10 - M54.50) [facility] Other 09-20-2022 Evaluation note* Encounter Date Diagnosis Assessment Notes Treatment Notes Treatment Clinical Notes Feb, Elevated liver function tests (ICD-10 - R79.89) [facility] Other 09-16-2022 Evaluation note* Encounter Date Diagnosis Assessment Notes Treatment Notes Treatment Clinical Notes Feb, Acute pain of left shoulder (ICD-10 - M25.512) [place] [facility] report reviewed from 02/20/22 . The [...] pain (ICD-10 - R10.13) The patient advised [place] could be causing her GI upset , [...] month [place] at her next office visit. [facility] Other 09-08-2022 Evaluation note* Encounter Date Diagnosis [...] (ICD-10 - M85.80) Noted on Lumbar x-ray. [facility] Other 08-05-2022 Evaluation note* Encounter Date Diagnosis Assessment Notes Treatment Notes Treatment Clinical Notes Jan, COVID-19 (ICD-10 - U07.1) [facility] Other 08-05-2022 Evaluation note* Encounter Date Diagnosis Assessment Notes Treatment Notes Treatment Clinical Notes Jan, Cough (ICD-10 - R05.9) In house covid test is positive. Treatment plan discussed in TE. [facility] Other 07-14-2022 Evaluation note* Encounter Date Diagnosis Assessment Notes Treatment Notes Treatment Clinical Notes Dec, PMR (polymyalgia rheumatica) (ICD-10 - M35.3) [facility] Other 05-27-2022 Evaluation note* Encounter Date Diagnosis Assessment Notes Treatment Notes Treatment Clinical Notes October, PMR (polymyalgia rheumatica) (ICD-10 - M35.3) [facility] Other 04-25-2022 Evaluation note* Encounter Date Diagnosis [...] The patient encourged to continue following with pot feeder annually in December as scheduled. I did forward a copy of most current blood work results . [facility] Other 04-04-2022 Evaluation note* Encounter Date Diagnosis Assessment Notes Treatment Notes Treatment Clinical Notes Sep, PMR (polymyalgia rheumatica) (ICD-10 - M35.3) Sep, Hypertension (ICD-10 - I10) [facility] Other 02-24-2022 Evaluation note* Encounter Date Diagnosis [...] if needed. We will continue to montior. [facility] Other 02-16-2022 Evaluation note* Encounter Date Diagnosis Assessment Notes Treatment Notes Treatment Clinical Notes Jul, PMR (polymyalgia rheumatica) (ICD-10 - M35.3) [facility] Other 11-30-2021 Evaluation note* Encounter Date Diagnosis Assessment Notes Treatment Notes Treatment Clinical Notes Apr, PMR (polymyalgia rheumatica) (ICD-10 - M35.3) [facility] Other 11-18-2021 Evaluation note* Encounter Date Diagnosis [...] Hypothyroidism (ICD-10 - E03.9) Blood work ordered. [facility] Other 09-09-2015 History general Narrative - Reported* Type Description Date Medical History Shingles Medical History 02-15-15-mammogram-negativ e Medical History [id number]-erpjht, elmo jiménez in 3 yrs Medical History 03/2017- colonoscopy- normal Medical History f/u with cardiology [facility] Medical History ECHO 09/2016 Surgical History Appendectomy Surgical History Gallbladder Removal Surgical History Ovarian Cyst Removal Surgical History Coccyx repair Surgical History Cataracts Bilateral Eyes Surgical History thyroidectomy Dr. Forbes 10/14/2019 Hospitalization History Childbirth x5 Hospitalization History See Above [facility] [facility] Other [facility] [place] Other [facility] note* Diagnosis Aortic valve stenosis, etiology of cardiac valve disease unspecified Essential hypertension Unspecified essential hypertension Hyperlipidemia, unspecified hyperlipidemia type Never smoked any substance documented in this encounter [facility] Work Phone: Chief Complaint * LAVONNE [...] PMR (polymyalgia rhe umatica) (M35.3) Referral Organization [facility] [place] Referring Provider First Name Suhas Referring Provider Last Name Ugo Referring Provider Specialty Family Prac sukhjinder Referred Organization [facility] Referred Address [address] [place], [place],[address] Referred Provider Specialty Rheumatology Referral Priority Routine [...] disease unspecified Procedures Transthoracic Echo (TTE) Complete DE ECHO TTHRC R-T 2D W/WOM-MODE COMPL SPEC&COLR D Shy Wolf MD [address] [facility], [place] [address] [place] [id number] Referral ID Status Reason Start Date Expiration Date Visits Requested Visits Authorized Pending Review Perform Procedure 06/19/2023 06/18/2024 1 1 Specialty Diagnoses / Procedures Referred By Contac t Referred To Contact Cardiology Diagnoses Aortic valve stenosis, etiology of cardiac valve disease unspecified Procedures Follow Up In Cardiology Shy Wolf MD [address] [facility], [place] [address] [place] [id number] Shy Wolf MD [address] [facility], [address] [address] Referral ID Status Reason Start Date Expiration Date V isits Requested Visits Authorized [id number] Authorized 06/19/2023 06/18/2024 1 1 Additional Source Comments REASON FOR VISIT (unrecogniz ed section and content) Reason Comments Follow-up 6m INFORMATION SOURCE (unrecogn ized section and content) DATE CREATED AUTHOR 03/06/2022 [facility] DATE CREATED AUTHOR AUTHOR'S ORGANIZ ATION 12/25/2022 [facility] DATE CREATED AUTHOR AUTHOR'S ORGANIZ ATION 12/25/2022 [facility] DATE CREATED AUTHOR AUTHOR'S ORGANIZ ATION 03/03/2023 [facility] DATE CREATED AUTHOR AUTHOR'S ORGANIZ ATION 02/17/2024 [facility] DATE CREATED AUTHOR AUTHOR'S ORGANIZ ATION 02/29/2024 [facility] DATE CREATED AUTHOR AUTHOR'S ORGANIZ ATION 04/18/2024 [facility] DATE CREATED AUTHOR AUTHOR'S ORGANIZ ATION 06/02/2024 [facility] Care Teams (unrecognized sec tion and content) Proposal Coordinator Relationship Specialty Start Date End Date UgoSuhas GarthDO PCP - General 06/09/99 FOR RECORDS PERTAINING [...] BE BASED ON THE PRIMARY CLINICAL RECORDS. [employer] provides no warranty or guarantee of the accuracy or completeness of information in this document.
--- NOTE | 2024-06-10 10:18 | P.CN_ITS ---
Consult Note: HPI Data of Consult Patient: known to practice within the last 3 years Consult date: 02/23/24 Requesting Physician: Norma Jimenez NP Primary Care Provider: Suhas Arizmendi DO Consult Narrative Reason for consult: neck, bilateral arm pain Narrative: 88yof who presents for assessment. worsening neck and bilateral upper extremity pain. cervical xr consistent with multilevel degenerative changes, cx mri shows multilevel degenerative changes with foraminal and central stenosis C5-6 C6-7. continues in provider directed home exercise program >6 weeks, with no benefit. has tried tylenol, tramadol, norco, butrans without benefit. failed OTC NSAIDs. following with rheumatology for PMR and on prednisone 10mg daily. currently utilizing percocet 5-325mg BID PRN moderate to severe pain and aleve with significant benefit. pain today 1/10 increasing to 8/10 with weather changes, PMR, and activity. cc:: CC: Norma Jimenez NP Review of Systems ROS Status of ROS 10 or more systems reviewed and unremark able except as noted in history and below Musculoskeletal Reports: neck pain and extremity pain PFSH PFSH Medical History Polymyalgia rheumatica ?M35.3 - Polymyalgia rheumatica (ICD-10) Hyperthyroidism ?E05.90 - Thyrotoxicosis, unspecified without thyrotoxic crisis or storm (ICD-10) Heart murmur ?R01.1 - Cardiac murmur, unspecified (ICD-10) HTN (hypertension) ?I10 - Essential (primary) hypertension (ICD-10) Surgical History 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 - Postprocedural hypothyroidism (ICD-10) Hx of cholecystectomy ?Z90.49 - Acquired absence of other specified parts of digestive tract (ICD- 10) History of ovarian cystectomy ?Z98.890 - Other specified postprocedural states (ICD-10) ?Z87.42 - Personal history of other diseases of the female genital tract (ICD-10) History of appendectomy ?Z90.49 - Acquired absence of other specified parts of digestive tract (ICD- 10) Meds Home Medications and Allergies Home Medications ?Medication ?Instructions ?Recorded ?Confirmed ?Type acetaminophen 650 mg 650 mg PO Q8H PRN pain 08/25/23 11/24/23 History tablet,extended release (8 Hour Pain Reliever) amlodipine 10 mg tablet (Norvasc) 10 mg PO DAILY 08/25/23 11/24/23 History aspirin 81 mg capsule 81 mg PO DAILY 08/25/23 11/24/23 History carvedilol 6.25 mg tablet 6.25 mg PO Q12H 08/25/23 11/24/23 History levothyroxine 100 mcg tablet 100 mcg PO DAILY 08/25/23 11/24/23 History losartan 100 1 tab PO DAILY 08/25/23 11/24/23 History mg-hydrochlorothiazide 12.5 mg tablet multivitamin (Daily Multi-Vitamin 1 tab PO DAILY 08/25/23 11/24/23 History tablet) omega 2-cvc-iuo-fish oil 1,000 mg 1 cap PO DAILY 08/25/23 11/24/23 History (120 mg-180 mg) capsule (Fish Oil) calcium carbonate (Calcium 600) 600 mg PO DAILY 09/29/23 11/24/23 History prednisone 2.5 mg tablet mg 11/17/23 History oxycodone-acetaminophen 5 mg-325 1 tab PO BID PRN pain #60 tabs 02/23/24 Rx mg tablet (Percocet) oxycodone-acetaminophen 5 mg-325 1 tab PO BID PRN pain #60 tabs 03/25/24 Rx mg tablet (Percocet) Allergies Allergy/AdvReac Type Severity Reaction Status Date / Time amoxicillin Allergy Mild Rash Verified 11/24/23 11:09 divalproex sodium (From Allergy Unknown Verified 11/24/23 11:09 Depakote) hydrocodone Allergy Unknown Verified 11/24/23 11:09 phenytoin (From Dilantin) Allergy Unknown Verified 11/24/23 11:09 alendronate sodium (From AdvReac eye pain Verified 11/24/23 11:09 Fosamax) Exam Narrative Exam Narrative: Psych-alert and oriented x 3.? Attentive and appropriate, constitutionally normal, displays normal mood and affect per situation.? There are no obvious deficits in memory, reasoning, or intellect.? Skin-no obvious rashes, bruising, or erythema noted to the patient's area of pain.? Extremities-upper extremities are warm with minimal edema and palpable pulses. Cervical- tenderness to palpation noted in the cervical spine and paraspinal musculature.? Pain is elicited with flexion, extension, and lateral rotation of the cervical spine.? Range of motion is diminished due to pain. Facet loading maneuvers are positive. Strength-unremarkable and within normal limits with the exception to the bilateral biceps, triceps. Sensory-no notable sensory deficits in the bilateral upper extremities to touch or pinprick with the exception to decreased sensation to the bilateral C5, 6, 7 dermatomal distribution.? Coordination remains intact.? Gait remains non-antalgic. 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 The patient does not report intolerable side effects. The patient is NOT opioid naive and non-pharmacologic and non-opioid treatment has failed to significantly relieve the patient's pain and improve functionality. The patient has a diagnosis that is related to a somatic or visceral pain etiology. ? ?? I reviewed with the patient the potential risks and side effects with the use of? opioid medications including but not limited to respiratory depression,? sedation, and even . I verified the patient has access to naloxone should? these effects occur. I advised the patient to avoid the use of any other? sedation substances including alcohol, THC, and benzodiazepines while? taking opioid medications due to the risk of compounding side effects and? detrimental outcomes. I reviewed the LICENSED PROSTHETIST/ORTHOTIST, pain treatment agreement, urine? drug screen, and opioid start talking forms. The patient was advised to let? their family know they had Naloxone in case they would need to administer? the medication.? ?? A drug screen was completed within the last year, and no aberrancies were noted regarding their use of controlled substances. The patient understands they are subject to the terms and conditions of the pain contract that they have signed. ? ?? I have checked an [place]AR[place] report on this patient today and there are no aberrancies noted in the prescribing history.? Plan continue current medications declining injection therapy at this time as pain is well controlled continue f/u with Rheumatology f/u 3 months, sooner if needed
== END 2024-06-10 10:01 | disposition home or self-care (01) ==
PROVIDERS: PCP Family Medicine; Visit Provider Nurse Practitioner
DX: M48.02 Spinal stenosis, cervical region (principal); M47.812 Spondylosis without myelopathy or radiculopathy, cervical region; M19.012 Primary osteoarthritis, left shoulder; M19.011 Primary osteoarthritis, right shoulder; M35.3 Polymyalgia rheumatica; Z79.891 Long term (current) use of opiate analgesic
CPT/HCPCS: G0463

== ENCOUNTER 2024-08-19 10:32 | Outpatient (OUT) | payer MEDICARE, OTHER, SELFPAY ==
--- OUTSIDE RECORDS SUMMARY | 2024-08-19 10:37 | XMS_ITS | CCD ---
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 Suhas Liang Primary Care Unavaila ria Wolf, Dr. Shy Agosto Referring Radha vailable Luciano, Dr. Shy Agosto Attending Radha vailable Luciano, Dr. Shy Agosto Attending Radha vailable Ugo, [...] , Andrius Vytautmarshal Attending Unavailable Gifaniraitis , Andri Vdelio Attending Unavailable SHY WOLF Attending Unavailable SUHAS GARRETT Primary Care Unavailable SHY WOLF Attending Unavailable SHY WOLF Referring Unavailable SUHAS GARRETT Primary Care Unavailable Kuns, Suhas Primary Care Unavailable Kuns, Suhas Admitting Unavailable Kuns, Suhas Attending Unavailable Kuns, Suhas Attending Unavailable Kuns, Suhas Primary Care Unavailable Kuns, Suhas Admitting Unavailable Kuns, Suhas Attending Unavailable Kuns, Suhas Primary Care Unavailable Kuns, Suhas Admitting Unavailable Kuns, Suhas Attending Unavailable Kuns, Suhas Primary Care Unavailable Kuns, Suhas Admitting Unavailable Allergies Allergy Classification Reported Allergen(s) Allergy Type Date of Onset Reaction(s) Facility (20 sources) Alendronate; Translations: [Fosamax] Drug Allergy 3 Unknown, Other [facility] Repository (20 sources) Amoxicillin; Translations: [amoxicillin] Drug Allergy 9 hives [facility] [employer] Other (20 sources) Phenytoin; Translations: [Dilantin CAPS] Drug Allergy 3 Rash [facility] [employer] Other (20 sources) Valproate; Translations: [Depakote ER TB24] Drug Allergy [facility] [employer] Other (1 source) Alendronate Drug Allergy [facility] Repository (1 source) Amoxicillin Drug Allergy [facility] Repository (1 source) Phenytoin Drug Allergy [facility] Repository (1 source) Valproate Drug Allergy [facility] Repository (20 sources) Acetaminophen / HYDROcodone Drug Allergy elevated liver enzymes [facility] [employer] Other (1 source) Alendronate Drug Allergy 3 [facility] (3 sources) HYDROcodone; Translations: [HYDROCODONE] Drug Allergy 4 [facility] Work Phone: (3 sources) Valproate; Translations: [VALPROIC ACID] Drug Allergy 3 [facility] Work Phone: (1 source) Acetaminophen Drug Allergy 4 [facility] Repository (1 source) Alendronate Drug Allergy 4 [facility] Repository (1 source) Amoxicillin Drug Allergy 4 [facility] Repository (1 source) HYDROcodone Drug Allergy 4 [facility] Repository (1 source) Phenytoin Drug Allergy 4 [facility] Repository (1 source) Valproate Drug Allergy 4 [facility] Repository Medications Current Medications Medication Drug [...] tablet by mouth once daily. 0 Active Camas 3 1000 MG (20 sources) take 1 capsule by mouth once daily Camas 3 1000 MG 1 capsule with a [...] take 1 capsule by mouth once daily Camas-3 Fish Oil 1000 MG Oral Capsule TAKE [...] 0 Refills: 0 Ordered: 13-Dec-2021 DO Active Camas 3 500 CAPS (4 sources) Camas 3 500 CAPS TAKE 1 CAPSULE Daily [...] Coronary arteriosclerosis; 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 [place] coronary artery without angina pectoris] Onset: 09-03-2023 [...] murmur, unspecified] Onset: 10-01-2021 Resolved: 10-01-2021 Episodic Nutritional deficiencies (1 source) Vitamin D deficiency, unspecified; Translations: [Vitamin D deficiency, unspecified] Onset: 07-28-2024 Chronic Osteoporosis (1 source) Osteoporosis; Translations: [Age-related osteoporosis without current pathological fracture] Chronic Other aftercare (1 source) Other correction (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; Translations: [OTH STRESS ENGINEER CURRENT DRUG THERAPY] Onset: 02-22-2022 Episodic Other [...] [Hypothyroidism, unspecified] Onset: 04-26-2021 Resolved: 04-26-2021 Chronic Past or Other Problems Problem Classification Problem [...] Facility Complete Blood Count Auto Di ffon 07-28-2024 Basophils (Bld) [#/Vol] 0.1 10*3/uL Normal 0.0-0.2 [facility] Comment on above: Performed By: #### V [id number], CMP, TSH3, LIPID, CBC, T4F, ESR #### [address] Basophils/100 WBC (Bld) 1.1 % Normal . [facility] Comment on above: Performed By: #### V [id number], CMP, TSH3, LIPID, CBC, T4F, ESR #### [address] Eosinophils (Bld) [#/Vol] 0.1 10*3/uL Normal 0.0-0.45 [facility] Comment on above: Performed By: #### V [id number], CMP, TSH3, LIPID, CBC, T4F, ESR #### [address] Eosinophils/100 WBC (Bld) 2.2 % Normal . [facility] Comment on above: Performed By: #### V [id number], CMP, TSH3, LIPID, CBC, T4F, ESR #### [address] Erythrocyte distribution width (RBC) [Ratio] 13.5 % Normal 11.9-15.3 [facility] Comment on above: Performed By: #### V [id number], CMP, TSH3, LIPID, CBC, T4F, ESR #### [address] Hematocrit (Bld) [Volume fraction] 37.9 % Normal 34.0-46.4 [facility] Comment on above: Performed By: #### V [id number], CMP, TSH3, LIPID, CBC, T4F, ESR #### [address] Hemoglobin (Bld) [Mass/Vol] 12.9 g/dL Normal 11.8-15.4 [facility] Comment on above: Performed By: #### V [id number], CMP, TSH3, LIPID, CBC, T4F, ESR #### [address] Lymphocytes (Bld) [#/Vol] 2.2 10*3/uL Normal 1.00-4.8 [facility] Comment on above: Performed By: #### V [id number], CMP, TSH3, LIPID, CBC, T4F, ESR #### [address] Lymphocytes/100 WBC (Bld) 34.3 % Normal . [facility] Comment on above: Performed By: #### V [id number], CMP, TSH3, LIPID, CBC, T4F, ESR #### [address] MCH (RBC) [Entitic mass] 33.5 pg Normal 24.7-34.3 [facility] Comment on above: Performed By: #### V [id number], CMP, TSH3, LIPID, CBC, T4F, ESR #### [address] MCV (RBC) [Entitic vol] 98.4 fL Normal 80-100 [facility] Comment on above: Performed By: #### V [id number], CMP, TSH3, LIPID, CBC, T4F, ESR #### [address] Mean Corpuscular HGB Conc 34.1 g/dL Normal 32.0-35.0 [facility] Comment on above: Performed By: #### V [id number], CMP, TSH3, LIPID, CBC, T4F, ESR #### [address] Monocytes (Bld) [#/Vol] 0.6 10*3/uL Normal 0.0-0.8 [facility] Comment on above: Performed By: #### V [id number], CMP, TSH3, LIPID, CBC, T4F, ESR #### [address] Monocytes/100 WBC (Bld) 9.8 % Normal . [facility] Comment on above: Performed By: #### V [id number], CMP, TSH3, LIPID, CBC, T4F, ESR #### [address] Neutrophils (Bld) [#/Vol] 3.4 10*3/uL Normal 1.8-7.7 [facility] Comment on above: Performed By: #### V [id number], CMP, TSH3, LIPID, CBC, T4F, ESR #### [address] Neutrophils/100 WBC (Bld) 52.6 % Normal . [facility] Comment on above: Performed By: #### V [id number], CMP, TSH3, LIPID, CBC, T4F, ESR #### [address] NRBC% 0.3 /100{WBC} Normal 0-0.5 [facility] Comment on above: Performed By: #### V [id number], CMP, TSH3, LIPID, CBC, T4F, ESR #### [address] Platelet mean volume (Bld) [Entitic vol] 9.3 fL Normal 6.3-10.7 [facility] Comment on above: Performed By: #### V [id number], CMP, TSH3, LIPID, CBC, T4F, ESR #### [address] Platelets (Bld) [#/Vol] 208 10*3/uL Normal 150-450 [facility] Comment on above: Performed By: #### V [id number], CMP, TSH3, LIPID, CBC, T4F, ESR #### [facility] [address] RBC (Bld) [#/Vol] 3.85 10*6/uL Normal 3.60-5.00 [facility] Comment on above: Performed By: #### V [id number], CMP, TSH3, LIPID, CBC, T4F, ESR #### [facility] [address] WBC (Bld) [#/Vol] 6.6 10*3/uL Normal 3.8-11.6 [facility] Comment on above: Performed By: #### V [id number], CMP, TSH3, LIPID, CBC, T4F, ESR #### [address] Comprehensive Metabolic Pane nory 07-28-2024 Albumin [Mass/Vol] 3.7 g/dL Normal 3.5-5.7 [facility] Comment on above: Performed By: #### V [id number], CMP, TSH3, LIPID, CBC, T4F, ESR #### [address] Albumin/Globulin [Mass ratio] 1.9 {ratio} Normal [facility] Comment on above: Performed By: #### V [id number], CMP, TSH3, LIPID, CBC, T4F, ESR #### [address] ALP [Catalytic activity/Vol] 62 U/L Normal 34-104 [facility] Comment on above: Performed By: #### V [id number], CMP, TSH3, LIPID, CBC, T4F, ESR #### [address] ALT [Catalytic activity/Vol] 21 U/L Normal 7-52 [facility] Comment on above: Performed By: #### V [id number], CMP, TSH3, LIPID, CBC, T4F, ESR #### [address] Anion gap [Moles/Vol] 8.2 mmol/L Normal 6.0-15.0 [facility] Comment on above: Performed By: #### V [id number], CMP, TSH3, LIPID, CBC, T4F, ESR #### [address] AST [Catalytic activity/Vol] 19 U/L Normal 13-39 [facility] Comment on above: Performed By: #### V [id number], CMP, TSH3, LIPID, CBC, T4F, ESR #### [address] Bilirubin [Mass/Vol] 0.7 mg/dL Normal 0.3-1.0 [facility] Comment on above: Performed By: #### V [id number], CMP, TSH3, LIPID, CBC, T4F, ESR #### [address] Calcium [Mass/Vol] 9.7 mg/dL Normal 8.6-10.3 [facility] Comment on above: Performed By: #### V [id number], CMP, TSH3, LIPID, CBC, T4F, ESR #### [address] Chloride [Moles/Vol] 107 mmol/L Normal 98-107 [facility] Comment on above: Performed By: #### V [id number], CMP, TSH3, LIPID, CBC, T4F, ESR #### [address] CO2 [Moles/Vol] 31.5 mmol/L High 21.0-31.0 [facility] Comment on above: Performed By: #### V [id number], CMP, TSH3, LIPID, CBC, T4F, ESR #### [address] Creatinine [Mass/Vol] 0.67 mg/dL Normal 0.60-1.20 [facility] Comment on above: Performed By: #### V [id number], CMP, TSH3, LIPID, CBC, T4F, ESR #### [place] [address] [place] GFR/1.73 sq M.predicted MDRD (S/P/Bld) [Vol rate/Area] mL/min/{1.73_m2} Normal [facility] Comment on above: Performed By: #### V [id number], CMP, TSH3, LIPID, CBC, T4F, ESR #### [facility] [address] Globulin (S) [Mass/Vol] 1.9 g/dL Normal [facility] Comment on above: Performed By: #### V [id number], CMP, TSH3, LIPID, CBC, T4F, ESR #### [facility] [address] Glucose [Mass/Vol] 89 mg/dL Normal 70-100 [facility] Comment on above: Result Comment: [facility] Glucose Reference Range is dependent on time and content of last meal. Glucose of more than 200 mg/dL in a nonstressed, ambulatory subject supports the diagnosis of Diabetes Mellitus. ADA recommended reference range Performed By: #### V [id number], CMP, TSH3, LIPID, CBC, T4F, ESR #### [address] Potassium [Moles/Vol] 3.7 mmol/L Normal 3.5-5.1 [facility] Comment on above: Performed By: #### V [id number], CMP, TSH3, LIPID, CBC, T4F, ESR #### [address] Protein [Mass/Vol] 5.6 g/dL Low 6.4-8.9 [facility] Comment on above: Performed By: #### V [id number], CMP, TSH3, LIPID, CBC, T4F, ESR #### [address] Sodium [Moles/Vol] 143 mmol/L Normal 136-145 [facility] Comment on above: Performed By: #### V [id number], CMP, TSH3, LIPID, CBC, T4F, ESR #### [address] Urea nitrogen [Mass/Vol] 19 mg/dL Normal 7-25 [facility] Comment on above: Performed By: #### V [id number], CMP, TSH3, LIPID, CBC, T4F, ESR #### [address] Erythrocyte Sedimentation Ra amy 07-28-2024 ESR (Bld) [Velocity] 9 mm/h Normal 0-29 [facility] Comment on above: Result Comment: PERF ORMED BY: [place] [address] PATHOLOGIST BUILDING ENGINEER JASIEL HURTADO M.D. Performed By: #### V [id number], CMP, TSH3, LIPID, CBC, T4F, ESR #### [address] Free T4 (Free Thyroxine)on 0 07-28-2024 Free T4 [Mass/Vol] 0.74 ng/dL Normal 0.61-1.12 [facility] Comment on above: Performed By: #### L IPID, TSH3, CMP, CBC #### [address] Lipid Panelon 07-28-2024 Cholesterol [Mass/Vol] 228 mg/dL High 140-200 [facility] Comment on above: Result Comment: Chol less than 200 mg/dl low risk Chol 201-239 mg/dl borderline risk Chol 240 mg/dl and greater high risk Performed By: #### V [id number], CMP, TSH3, LIPID, CBC, T4F, ESR #### [address] Cholesterol in HDL [Mass/Vol] 96 mg/dL High 23-92 [facility] Comment on above: Result Comment: HDL CHOL ATP-III CLASSIFICATION Cardiovascular Risk HDL > or equal to 60 mg/dL LOW HDL < 40 mg/dL HIGH Performed By: #### V [id number], CMP, TSH3, LIPID, CBC, T4F, ESR #### [facility] [address] [place] [address] [place] Cholesterol.total/Ch olesterol in HDL [Mass ratio] 2.4 {ratio} Normal <5.0 [facility] Comment on above: Performed By: #### V [id number], CMP, TSH3, LIPID, CBC, T4F, ESR #### [facility] [address] LDL Cholesterol,Calculat ed 121 mg/dL High 0-100 [facility] Comment on above: Result Comment: LDL ATP III CLASSIFICATION LDL less than 100 mg/dL Optimal LDL 100-129 mg/dL Near or above optimal LDL 130-159 mg/dL Borderline high LDL 160-189 mg/dL High LDL greater than 189 mg/dL Very high Performed By: #### V [id number], CMP, TSH3, LIPID, CBC, T4F, ESR #### [facility] [address] Triglyceride w/Reflex 57 mg/dL Normal 0-149 [facility] Comment on above: Result Comment: TRIG ATP III CLASSIFICATION TRIG less than 150 mg/dL Normal TRIG 150-199 mg/dL Borderline high TRIG 200-500 mg/dL High TRIG greater than 500 mg/dL Very high Standard traceable to the Center for Disease Conrtrol and Prevention (CDC) test method. Performed By: #### V [id number], CMP, TSH3, LIPID, CBC, T4F, ESR #### [facility] [address] VLDL CHOLESTEROL 11 mg/dL Normal [facility] Comment on above: Performed By: #### V [id number], CMP, TSH3, LIPID, CBC, T4F, ESR #### [facility] [address] [place] [id number] [place] Thyroid Stimulating Hormoneo n 07-28-2024 TSH Qn 6.38 m[IU]/L High 0.45-5.33 [facility] Comment on above: Performed By: #### L IPID, TSH3, CMP, CBC #### [facility] [address] [place] [id number] [place] Vitamin D 25 Hydroxy Totalon 07-28-2024 Vitamin D 25 Hydroxy Total 28.4 ng/mL Low 30-100 [facility] Comment on above: Result Comment: ANJU MIN D STATUS 25(OH)VITAMIN D RANGE (ng/mL) Deficient <20 Insufficient 20 to <30 Sufficient 30 to 100 Reference: Yolanda MF,Nathan WOO, Keshawn FRANCO, et al. Evaluation,treatment, and prevention of vitamin D deficiency; an Endocrine Society clinical practice guideline. JCEM. 2010; 96(7):1911-30. PERFORMED BY: [place] [address] PATHOLOGIST BUILDING ENGINEER JASIEL HURTADO M.D. Performed By: #### L IPID, TSH3, CMP, CBC #### [address] XR scapula LT*on 05-25-2024 XR scapula LT* [facility] Main [place] [address] [place] [address] XRay Report Signed Patient: Lavonne Villatoro MR#: [id number] : 1935 Acct:[id number] Age/Sex: 88 / F ADM Date: 05/25/24 Loc: XD Room: Type: [facility] Attending Dr: Suhas Garrett DO Copies to: Suhas Garrett DO Ordering Provider: Suhas Garrett DO Date of Service: 05/25/24 XR/XR shoulder LT min 2V*: M25.519 - Pain in unspecified shoulder ([id number]) XR/XR scapula LT*: M25.519 - Pain in [...] Casandra Gómez M.D.05/25/2024 4:45 PM Dictation Location: [place] [address] Transcribed By: [facility] 05/25/241644 Dictated By: Casandra Gómez MD 05/25/241641 Signed By: 05/25/241644 Normal [facility] TRANSTHORACIC ECHO (TTE) COM [facility] 02-11-2024 TRANSTHORACIC ECHO (TTE) COMPLETE [address], [address] [place] [address] TRANSTHORACIC ECHOCARDIOGRAM REPORT Patient Name: LAVONNE VILLATORO Reading Physician: [id number] Shy Wolf MD, [facility] Study Date: 02/11/2024 Ordering Provider: [id number] SHY WOLF MRN/PID: [id number] Fellow: Nurse: Date of /Age: 3 1935 / 88 years Fitness Floor Attendant: LILIA Gender: F Additional Staff: Height: 157.48 cm Admit Date: Weight: 69.40 kg Admission Status: BSA / BMI: 1.71 m2 / 27.98 kg/m2 Department Location: [facility] Blood Pressure: 116 /76 mmHg Study Type: TRANSTHORACIC ECHO (TTE) COMPLETE Diagnosis/ICD: Nonrheumatic aortic (valve) stenosis-I35.0 Indication: HTN, Hyperlipidemia, 3/6 Systolic Murmur, Hypothryoid, Overweight CPT Codes: Echo Complete w Full Doppler-[id number] Study Detail: The following Echo studies were [...] mmHg PIEDV: 2.23 m/s PADP: 22.9 mmHg [id number] Shy Wolf MD, [facility] Electronical (more content not included)... [facility] US carotid doppler BIon 05-0 US carotid doppler BI [facility] Main [place] [address] [place] [id number] Ultrasound Report Signed Patient: Lavonne Villatoro MR#: [id number] : 1935 Acct:[id number] Age/Sex: 88 / F ADM Date: 10/14/23 Loc: Room: Type: [facility] Attending Dr: Suhas Garrett DO [...] Hola Wynn M.D.10/15/2023 11:47 AM Dictation Location: [place] [address] Tech: Jackie Aguillon Transcribed By: KIRILL 10/15/23 1147 Dictated By: Hola Wynn MD 10/15/23 1145 Signed By: 10/15/23 1147 Normal [facility] Complete Blood Count Auto Di ffon 09-03-2023 Basophils (Bld) [#/Vol] 0.0 10*3/uL Normal 0.0-0.2 [facility] Comment on above: Result Comment: PERF ORMED BY: [place] [address] PATHOLOGIST BUILDING ENGINEER JODY SOLANO M.D. Performed By: #### L IPID, TSH3, CMP, CBC #### [address] Basophils/100 WBC (Bld) 0.7 % Normal . [facility] Comment on above: Performed By: #### L IPID, TSH3, CMP, CBC #### [address] Eosinophils (Bld) [#/Vol] 0.1 10*3/uL Normal 0.0-0.45 [facility] Comment on above: Performed By: #### L IPID, TSH3, CMP, CBC #### [address] Eosinophils/100 WBC (Bld) 1.6 % Normal . [facility] Comment on above: Performed By: #### L IPID, TSH3, CMP, CBC #### [address] Erythrocyte distribution width (RBC) [Ratio] 14.8 % Normal 11.9-15.3 [facility] Comment on above: Performed By: #### L IPID, TSH3, CMP, CBC #### [address] Hematocrit (Bld) [Volume fraction] 39.9 % Normal 34.0-46.4 [facility] Comment on above: Performed By: #### L IPID, TSH3, CMP, CBC #### [address] Hemoglobin (Bld) [Mass/Vol] 13.2 g/dL Normal 11.8-15.4 [facility] Comment on above: Performed By: #### L IPID, TSH3, CMP, CBC #### [address] Lymphocytes (Bld) [#/Vol] 2.6 10*3/uL Normal 1.00-4.8 [facility] Comment on above: Performed By: #### L IPID, TSH3, CMP, CBC #### [address] Lymphocytes/100 WBC (Bld) 43.5 % Normal . [facility] Comment on above: Performed By: #### L IPID, TSH3, CMP, CBC #### [address] MCH (RBC) [Entitic mass] 33.2 pg Normal 24.7-34.3 [facility] Comment on above: Performed By: #### L IPID, TSH3, CMP, CBC #### [address] MCV (RBC) [Entitic vol] 100.5 fL High 80-100 [facility] Comment on above: Performed By: #### L IPID, TSH3, CMP, CBC #### [address] Mean Corpuscular HGB Conc 33.0 g/dL Normal 32.0-35.0 [facility] Comment on above: Performed By: #### L IPID, TSH3, CMP, CBC #### [address] Monocytes (Bld) [#/Vol] 0.6 10*3/uL Normal 0.0-0.8 [facility] Comment on above: Performed By: #### L IPID, TSH3, CMP, CBC #### [address] Monocytes/100 WBC (Bld) 9.7 % Normal . [facility] Comment on above: Performed By: #### L IPID, TSH3, CMP, CBC #### [address] Neutrophils (Bld) [#/Vol] 2.7 10*3/uL Normal 1.8-7.7 [facility] Comment on above: Performed By: #### L IPID, TSH3, CMP, CBC #### [address] Neutrophils/100 WBC (Bld) 44.5 % Normal . [facility] Comment on above: Performed By: #### L IPID, TSH3, CMP, CBC #### [address] NRBC% 0.2 /100{WBC} Normal 0-0.5 [facility] Comment on above: Performed By: #### L IPID, TSH3, CMP, CBC #### [address] Platelet mean volume (Bld) [Entitic vol] 9.2 fL Normal 6.3-10.7 [facility] Comment on above: Performed By: #### L IPID, TSH3, CMP, CBC #### [place] [address] [place] Platelets (Bld) [#/Vol] 229 10*3/uL Normal 150-450 [facility] Comment on above: Performed By: #### L IPID, TSH3, CMP, CBC #### [address] RBC (Bld) [#/Vol] 3.98 10*6/uL Normal 3.60-5.00 [facility] Comment on above: Performed By: #### L IPID, TSH3, CMP, CBC #### [address] WBC (Bld) [#/Vol] 6.0 10*3/uL Normal 3.8-11.6 [facility] Comment on above: Performed By: #### L IPID, TSH3, CMP, CBC #### [address] Comprehensive Metabolic Pane nory 09-03-2023 Albumin [Mass/Vol] 3.8 g/dL Normal 3.5-5.7 [facility] Comment on above: Performed By: #### L IPID, TSH3, CMP, CBC #### [address] Albumin/Globulin [Mass ratio] 1.7 {ratio} Normal [facility] Comment on above: Performed By: #### L IPID, TSH3, CMP, CBC #### [address] ALP [Catalytic activity/Vol] 72 U/L Normal 34-104 [facility] Comment on above: Performed By: #### L IPID, TSH3, CMP, CBC #### [address] ALT [Catalytic activity/Vol] 43 U/L Normal 7-52 [facility] Comment on above: Performed By: #### L IPID, TSH3, CMP, CBC #### [address] Anion gap [Moles/Vol] 8.9 mmol/L Normal 6.0-15.0 [facility] Comment on above: Performed By: #### L IPID, TSH3, CMP, CBC #### [address] AST [Catalytic activity/Vol] 23 U/L Normal 13-39 [facility] Comment on above: Performed By: #### L IPID, TSH3, CMP, CBC #### [address] Bilirubin [Mass/Vol] 1.2 mg/dL High 0.3-1.0 [facility] Comment on above: Performed By: #### L IPID, TSH3, CMP, CBC #### [address] Calcium [Mass/Vol] 9.5 mg/dL Normal 8.6-10.3 [facility] Comment on above: Performed By: #### L IPID, TSH3, CMP, CBC #### [address] Chloride [Moles/Vol] 107 mmol/L Normal 98-107 [facility] Comment on above: Performed By: #### L IPID, TSH3, CMP, CBC #### [address] CO2 [Moles/Vol] 30.0 mmol/L Normal 21.0-31.0 [facility] Comment on above: Performed By: #### L IPID, TSH3, CMP, CBC #### [address] Creatinine [Mass/Vol] 0.76 mg/dL Normal 0.60-1.20 [facility] Comment on above: Performed By: #### L IPID, TSH3, CMP, CBC #### [place] [address] [place] GFR/1.73 sq M.predicted MDRD (S/P/Bld) [Vol rate/Area] mL/min/{1.73_m2} Normal [facility] Comment on above: Performed By: #### L IPID, TSH3, CMP, CBC #### [place] [address] [place] Globulin (S) [Mass/Vol] 2.2 g/dL Normal [facility] Comment on above: Performed By: #### L IPID, TSH3, CMP, CBC #### [address] Glucose [Mass/Vol] 79 mg/dL Normal 70-100 [facility] Comment on above: Result Comment: [place] [facility] Glucose Reference Range is dependent on time and content of last meal. Glucose of more than 200 mg/dL in a nonstressed, ambulatory subject supports the diagnosis of Diabetes Mellitus. ADA recommended reference range Performed By: #### L IPID, TSH3, CMP, CBC #### [facility] [address] Potassium [Moles/Vol] 3.9 mmol/L Normal 3.5-5.1 [facility] Comment on above: Performed By: #### L IPID, TSH3, CMP, CBC #### [address] Protein [Mass/Vol] 6.0 g/dL Low 6.4-8.9 [facility] Comment on above: Performed By: #### L IPID, TSH3, CMP, CBC #### [address] Sodium [Moles/Vol] 142 mmol/L Normal 136-145 [facility] Comment on above: Performed By: #### L IPID, TSH3, CMP, CBC #### [address] Urea nitrogen [Mass/Vol] 22 mg/dL Normal 7-25 [facility] Comment on above: Performed By: #### L IPID, TSH3, CMP, CBC #### [address] Lipid Panelon 09-03-2023 Cholesterol [Mass/Vol] 243 mg/dL High 140-200 [facility] Comment on above: Result Comment: Chol less than 200 mg/dl low risk Chol 201-239 mg/dl borderline risk Chol 240 mg/dl and greater high risk Performed By: #### L IPID, TSH3, CMP, CBC #### [address] Cholesterol in HDL [Mass/Vol] 98 mg/dL High 23-92 [facility] Comment on above: Result Comment: HDL CHOL ATP-III CLASSIFICATION Cardiovascular Risk HDL > or equal to 60 mg/dL LOW HDL < 40 mg/dL HIGH Performed By: #### L IPID, TSH3, CMP, CBC #### [facility] [address] Cholesterol.total/Ch olesterol in HDL [Mass ratio] 2.5 {ratio} Normal <5.0 [facility] Comment on above: Performed By: #### L IPID, TSH3, CMP, CBC #### [facility] [address] LDL Cholesterol,Calculat ed 121 mg/dL High 0-100 [facility] Comment on above: Result Comment: LDL ATP III CLASSIFICATION LDL less than 100 mg/dL Optimal LDL 100-129 mg/dL Near or above optimal LDL 130-159 mg/dL Borderline high LDL 160-189 mg/dL High LDL greater than 189 mg/dL Very high Performed By: #### L IPID, TSH3, CMP, CBC #### [address] Triglyceride w/Reflex 122 mg/dL Normal 0-149 [facility] Comment on above: Result Comment: TRIG ATP III CLASSIFICATION TRIG less than 150 mg/dL Normal TRIG 150-199 mg/dL Borderline high TRIG 200-500 mg/dL High TRIG greater than 500 mg/dL Very high Standard traceable to the Center for Disease Conrtrol and Prevention (CDC) test method. Performed By: #### L IPID, TSH3, CMP, CBC #### [address] VLDL CHOLESTEROL 24 mg/dL Normal [facility] Comment on above: Performed By: #### L IPID, TSH3, CMP, CBC #### [address] Thyroid Stimulating Hormoneo n 09-03-2023 TSH Qn 4.01 m[IU]/L Normal 0.45-5.33 [facility] Comment on above: Result Comment: PERF ORMED BY: [place] [address] PATHOLOGIST BUILDING ENGINEER JODY SOLANO M.D. Performed By: #### L IPID, TSH3, CMP, CBC #### [facility] [address] Complete Blood Count Auto Di ffon 07-08-2023 Basophils (Bld) [#/Vol] 0.854435380 10*3/uL Normal 0.0-0.2 10*3/uL [facility] Other Basophils/100 WBC (Bld) 0.900 % . % [facility] Other Eosinophils (Bld) [#/Vol] 0.031096689 10*3/uL Normal 0.0-0.45 10*3/uL [facility] Other Eosinophils/100 WBC (Bld) 1.100 % . % [facility] Other Erythrocyte distribution width (RBC) [Ratio] 14.000 % Normal 11.9-15.3 % [facility] Other Hematocrit (Bld) [Volume fraction] 37.700 % Normal 34.0-46.4 % [facility] Other Hemoglobin (Bld) [Mass/Vol] 12.765279 g/dL Normal 11.8-15.4 g/dL [facility] Other Lymphocytes (Bld) [#/Vol] 2.189435328 10*3/uL Normal 1.00-4.8 10*3/uL [facility] Other Lymphocytes/100 WBC (Bld) 35.100 % . % [facility] Other MCH (RBC) [Entitic mass] 33.3000 pg Normal 24.7-34.3 pg [facility] Other MCV (RBC) [Entitic vol] 99.7000 fL Normal 80-100 fL [facility] Other Monocytes (Bld) [#/Vol] 0.013297605 10*3/uL Normal 0.0-0.8 10*3/uL [facility] Other Monocytes/100 WBC (Bld) 10.000 % . % [facility] Other Neutrophils (Bld) [#/Vol] 3.290713042 10*3/uL Normal 1.8-7.7 10*3/uL [facility] Other Neutrophils/100 WBC (Bld) 52.900 % . % [facility] Other Platelet mean volume (Bld) [Entitic vol] 9.9000 fL Normal 6.3-10.7 fL [facility] Other Platelets (Bld) [#/Vol] 224 10*3/uL Normal 150-450 10*3/uL [facility] Other RBC (Bld) [#/Vol] 3.78 10*6/uL Normal 3.60-5.00 [facility] Other WBC (Bld) [#/Vol] 7.360202951 10*3/uL Normal 3.8 -11.6 10*3/uL [facility] Other Complete Blood Count Auto Diff 7.1 10*3/uL Normal 3.8-11.6 10*3/uL [facility] Other Complete Blood Count Auto Diff 33.4 g/dL Normal 32.0-35.0 g/dL [facility] Other Complete Blood Count Auto Diff 0.1 /100{WBC} Normal 0-0.5 /100{WBC} [facility] Other Comprehensive Metabolic Pane nory 07-08-2023 Albumin [Mass/Vol] 3.594543 g/dL Normal 3.5-5.7 g/dL [facility] [employer] Other Albumin/Globulin [Mass ratio] 1.7 {ratio} [facility] Other ALP [Catalytic activity/Vol] 140 U/L High 34-104 U/L [facility] Other ALT [Catalytic activity/Vol] 71 U/L High 7-52 U/L [facility] [employer] Other AST [Catalytic activity/Vol] 20 U/L Normal 13-39 U/L [place] [employer] Other Bilirubin [Mass/Vol] 0.0133022 mg/dL Normal 0.3-1.0 mg /dL [place] [employer] Other Calcium [Mass/Vol] 9.7945689 mg/dL Normal 8.6-10 .3 mg/dL [place] [employer] Other Chloride [Moles/Vol] 107 mmol/L Normal 98-107 mmol/L [facility] [employer] Other CO2 [Moles/Vol] 30.91775752 mmol/L Normal 21.0-3 1.0 mmol/L [place] [employer] Other Creatinine [Mass/Vol] 0.54012706 mg/dL Normal 0.60-1.20 mg/dL [place] [employer] Other GFR/1.73 sq M.predicted MDRD (S/P/Bld) [Vol rate/Area] mL/min/{1.73_m2} [facility] [employer] Other Glucose [Mass/Vol] 89 mg/dL Normal 70-100 mg/dL [facility] [employer] Other Potassium [Moles/Vol] 3.17432872 mmol/L Normal 3.5-5.1 mmol/L [place] [employer] Other Protein [Mass/Vol] 6.695483 g/dL Low 6.4-8.9 g/dL [facility] [employer] Other Sodium [Moles/Vol] 143 mmol/L Normal 136-145 mmol/L [place] [employer] Other Urea nitrogen [Mass/Vol] 21 mg/dL Normal 7-25 mg/dL [facility] Other Comprehensive Metabolic Panel 2.2 g/dL [facility] Other Free T4 (Free Thyroxine)on 0 07-08-2023 Free T4 [Mass/Vol] 1.81072231 ng/dL High 0.61- 1.12 ng/dL [facility] Other Thyroid Antibodies TPO+Tg Ab on 07-08-2023 Thyroid Antibodies TPO+Tg Ab 11 0-34 [facility] Other Thyroid Antibodies TPO+Tg Ab <1.0 0.0-0.9 [facility] Other Thyroid Stimulating Hormoneo n 07-08-2023 TSH Qn 2.34989578227 m[IU]/L Normal 0.45-5 .33 u[iU]/mL [facility] Other Echocardiogramon 02-26-[address], [address] [place] [address] TRANSTHORACIC ECHOCARDIOGRAM REPORT Patient Name: LAVONNE Shruti Physician: [id number] Shy Wolf MD, [facility] Study Date: 02/26/2023 Referring SHY WOLF Physician: MRN/PID: [id number] PCP: Suhas Garrett MD Accession/Order#: [id number] [facility] Location: Date of : 1935 Fellow: Gender: F Nurse: Admit Date: Fitness Floor Attendant: Sheridan Lemus [facility] Height: 157.48 cm CC Report to: Weight: 67.13 kg Study Type: Echocardiogram BSA: 1.68 m2 Blood Pressure: 122 /76 mmHg Diagnosis/ICD: I35.0-Nonrheumatic aortic (valve) stenosis; R01.1-Cardiac murmur, unspecified Indication: HTN, Hyperlipidemia, Overweight, Hypothyroid, Polymyalgia Rheumatica Procedure/CPT: Echo Complete w Full Doppler-[id number] Study Detail: The following Echo studies were [...] mmHg PIEDV: 2.50 m/s PADP: 28.0 mmHg [id number] Shy Wolf MD, [facility] Electronically signed on 03/01/2023 at 2:16:46 PM Final Normal [facility] Office Visit (Cardiology)on 12-24-2022 Follow-up visit Diagnoses/Problems Assessed Aortic stenosis (424.1) (I35.0) Murmur, cardiac (785.2) (R01.1) Essential hypertension (401.9) (I10) Hyperlipidemia (272.4) (E78.5) Overweight with body mass index (BMI) of 27 to 27.9 in adult (278.02,V85.23) (E66.3,Z68.27) Never smoker Hypothyroidism (244.9) (E03.9) PMR (polymyalgia rheumatica) (725) (M35.3) Orders Aortic stenosis, Murmur, cardiac Echocardiogram; Status:Hold For - Scheduling,Retrospect bola Authorization; Requested for:[id number]; Essential hypertension, Hyperlipidemia Changed: From Aspirin EC 81 MG TBEC TAKE 1 TABLET To Aspirin 81 MG Oral Tablet Delayed Release TAKE 1 TABLET DAILY Overweight with body mass index (BMI) of 27 to 27.9 in adult Healthy Weight Tips; Status:Complete - Retrospective Authorization; Done: [id number] Some eating tips that can help you lose weight.; Status:Complete - Retrospective Authorization; Done: [id number] SocHx: Never smoker Tobacco Use Screening; Status:Complete; Done: [id number] Patient Instructions Please bring all medicines, vitamins, [...] is being tapered gradually Shy Wolf MD, [facility] Past Medical History Problems History [...] Multi Vitamin Oral TabletTAKE 1 TABLET DAILY. Camas-3 Fish Oil 1000 MG Oral CapsuleTAKE 1 [...] negative for complaint. Vitals Vital Signs Recorded: [id number] 11:32AM Heart Rate68, R Radial Gumztuku238, RUE, Sitting Zykorfpvl89, RUE, Sitting Height5 ft 2 in Brsdjv341 lb BMI Wpzvkjxbbo19.07 kg/m2 BSA Calculated1.68 Tobacco Useb) No PHQ-2 [...] distress a (more content not included)... Normal [employer] Tobacco Screening.on 023 Adult depression screening assessment No [facility] 250 DO Work Phone: Fall risk assessment a) No falls within the last year [facility] [employer] 250 DO Work Phone: Tobacco use status CP b) No [facility] 250 DO Work Phone: Complete Blood Count Auto Di ffon 02-22-2022 Basophils (Bld) [#/Vol] 0.150337328 10*3/uL Normal 0.0-0.2 10*3/uL [facility] Other Basophils/100 WBC (Bld) 0.700 % . % [facility] Other Eosinophils (Bld) [#/Vol] 0.350872493 10*3/uL Normal 0.0-0.45 10*3/uL [facility] Other Eosinophils/100 WBC (Bld) 0.700 % . % [facility] Other Erythrocyte distribution width (RBC) [Ratio] 13.500 % Normal 11.9-15.3 % [facility] Other Hematocrit (Bld) [Volume fraction] 38.400 % Normal 34.0-46.4 % [facility] Other Hemoglobin (Bld) [Mass/Vol] 12.082229 g/dL Normal 11.8-15.4 g/dL [facility] Other Lymphocytes (Bld) [#/Vol] 0.521677518 10*3/uL Low 1.00-4.8 10*3/uL [facility] Other Lymphocytes/100 WBC (Bld) 12.600 % . % [facility] Other MCH (RBC) [Entitic mass] 33.7000 pg Normal 24.7-34.3 pg [facility] Other MCV (RBC) [Entitic vol] 100.4000 fL High 80-100 fL [facility] Other Monocytes (Bld) [#/Vol] 0.432420140 10*3/uL Normal 0.0-0.8 10*3/uL [facility] Other Monocytes/100 WBC (Bld) 6.800 % . % [facility] Other Neutrophils (Bld) [#/Vol] 5.877342064 10*3/uL Normal 1.8-7.7 10*3/uL [facility] Other Neutrophils/100 WBC (Bld) 79.200 % . % [facility] Other Platelet mean volume (Bld) [Entitic vol] 9.4000 fL Normal 6.3-10.7 fL [facility] Other Platelets (Bld) [#/Vol] 223 10*3/uL Normal 150-450 10*3/uL [facility] Other RBC (Bld) [#/Vol] 3.1493910377 10*6/uL Normal 3. 60-5.00 10*6/uL [facility] Other WBC (Bld) [#/Vol] 6.420464806 10*3/uL Normal 3.8 -11.6 10*3/uL [facility] Other Complete Blood Count Auto Diff 6.6 10*3/uL Normal 4.5-11.0 10*3/uL [facility] Other Complete Blood Count Auto Diff 33.6 g/dL Normal 32.0-35.0 g/dL [facility] Other Complete Blood Count Auto Diff 0.1 % Normal 0-0.5 % [facility] Other Erythrocyte Sedimentation Ra amy 02-22-2022 ESR (Bld) [Velocity] 28 mm/h Normal 0-29 [facility] [employer] Other VASC LAB Carotid Artery Dupl ex Ultrasoundon 02-21-2022 US.doppler Carotid arteries [facility] [employer] [address] [place] Work Phone: COVID Quick Testingon 2021 Result Positive [facility] Other Falls Screening (Age 18+)on 12-26-2021 Fall risk assessment a) No falls within the last year [facility] [employer] 250 DO Work Phone: Office Visit (Cardiology)on [...] Multi Vitamin Oral TabletTAKE 1 TABLET DAILY. Camas 3 500 CAPSTAKE 1 CAPSULE Daily predniSONE 5 MG Oral Follkt1QW 7.5MG BY MOUTH ONE DAILY ALTERNATING EVERY OTHER DAY Allergies Medication amoxicillin Hives;; Recorded By: Kayla Orr; 10/17/2021 10:50:34 AM Dilantin CAPS Rash; Recorded By: Kayla Orr; 10/17/2021 10:50:34 AM Fosamax eye pain; Recorded By: Kayla Orr; 10/17/2021 10:50:34 AM Depakote ER TB24 Recorded By: Kayla Orr; 10/17/2021 10:50:34 AM Vitals Vital Signs Recorded: 33Kld2535 11:04AMRecorded: 89Hui6041 11:00AM Heart Rate56, R Puofjl21, R Radial Akgjeqzv268, LUE, Eyatzvt357, RUE Txrzffpvb97, LUE, Narblwl39, RUE Height5 ft 2 in5 ft 2 in Oqrpno414 lb 143 lb BMI Mjukmdfakj80.16 kg/m226.16 kg/m2 BSA Calculated1.661.66 Falls Screening (Age 18+)a) No falls within the last year Signatures Electronically signed by : Shy Wolf MD; Dec 26 2021 4:02PM EST (Author) Normal [employer] Tobacco Screening.on 022 Adult depression screening assessment No [employer] Work Phone: Fall risk assessment a) No falls within the last year [facility] Work Phone: Tobacco use status CPHS b) No [facility] Work Phone: Vital Signs Date Time Vital Sign Value 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 Facility 07-04-2023 11:15-0500 Body height 157.48 cm Suhas Garrett Other [facility] Other 07-04-2023 11:15-0500 Body mass index (BMI) [Ratio] 28.53 kg/m2 Suhas Garrett Other [facility] Other 07-04-2023 11:15-0500 Body weight 70.76 kg Suhas Garrett Other [facility] Other 07-04-2023 11:15-0500 Diastolic blood pressure 84 mm[Hg] Suhas Garrett Other [facility] Other 07-04-2023 11:15-0500 Respiratory rate 20 /min Suhas Garrett Other [facility] Other 07-04-2023 11:15-0500 SaO2% (BldA) [Mass fraction] 99 % Suhas Garrett Other [facility] Other 07-04-2023 11:15-0500 Systolic blood pressure 150 mm[Hg] Suhas Garrett Other [facility] Other 06-19-2023 11:09-0500 Body height 157.5 cm Shy Wolf MD Work Phone: [facility] 06-19-2023 11:09-0500 Body mass index (BMI) [Ratio] 27.98 kg/m2 Shy Wolf MD Work Phone: [facility] 06-19-2023 11:09-0500 Body weight 69.4 kg Shy Wolf MD Work Phone: [facility] 06-19-2023 11:09-0500 Diastolic blood pressure 76 mm[Hg] Shy Wolf MD Work Phone: [facility] 06-19-2023 11:09-0500 Heart rate 60 /min Shy Wolf MD Work Phone: [facility] 06-19-2023 11:09-0500 Systolic blood pressure 120 mm[Hg] Shy Wolf MD Work Phone: [facility] 05-30-2023 11:00-0500 Body height 157.48 cm Suhas Garrett Other [facility] Other 05-30-2023 11:00-0500 Body mass index (BMI) [Ratio] 27.8 kg/m2 Suhas Garrett Other [facility] Other 05-30-2023 11:00-0500 Body weight 68.95 kg Suhas Garrett Other [facility] Other 05-30-2023 11:00-0500 Diastolic blood pressure 80 mm[Hg] Suhas Garrett Other [facility] Other 05-30-2023 11:00-0500 Respiratory rate 18 /min Suhas Garrett Other [facility] Other 05-30-2023 11:00-0500 SaO2% (BldA) [Mass fraction] 96 % Suhas Garrett Other [facility] Other 05-30-2023 11:00-0500 Systolic blood pressure 122 mm[Hg] Suhas Garrett Other [facility] Other 02-28-2023 10:30-0400 Body height 157.48 cm uShas Garrett Other [facility] Other 02-28-2023 10:30-0400 Body mass index (BMI) [Ratio] 27.98 kg/m2 Suhas Garrett Other [facility] Other 02-28-2023 10:30-0400 Body weight 69.4 kg Suhas Garrett Other [facility] Other 02-28-2023 10:30-0400 Diastolic blood pressure 76 mm[Hg] Suhas Garrett Other [facility] Other 02-28-2023 10:30-0400 Respiratory rate 16 /min Suhas Garrett Other [facility] Other 02-28-2023 10:30-0400 SaO2% (BldA) [Mass fraction] 91 % Suhas Garrett Other [facility] Other 02-28-2023 10:30-0400 Systolic blood pressure 134 mm[Hg] Suhas Garrett Other [facility] Other 12-24-2022 11:32-0400 Body height 157.48 cm Suhas Garrett Work Phone: [place] [place] [employer] [facility] DO Work Phone: 12-24-2022 11:32-0400 Body mass index (BMI) [Ratio] 27.07 kg/m2 Suhas Garrett Work Phone: [facility] DO Work Phone: 12-24-2022 11:32-0400 Body surface area Derived from formula 1.68 m2 Suhas Garrett Work Phone: [facility] 250 DO Work Phone: 12-24-2022 11:32-0400 Body weight 67.13 kg Suhas Garrett Work Phone: [facility] 250 DO Work Phone: 12-24-2022 11:32-0400 Diastolic blood pressure 76 mm[Hg] Suhas Garrett Work Phone: [facility] 250 DO Work Phone: 12-24-2022 11:32-0400 Heart rate 68 /min Suhas Garrett Work Phone: [facility] DO Work Phone: 12-24-2022 11:32-0400 Systolic blood pressure 118 mm[Hg] Suhas Garrett Work Phone: [facility] DO Work Phone: 12-06-2022 10:30-0400 Body height 157.48 cm Suhas Garrett Other [facility] [employer] Other 12-06-2022 10:30-0400 Body mass index (BMI) [Ratio] 27.98 kg/m2 Suhas Garrett Other [facility] Other 12-06-2022 10:30-0400 Body weight 69.4 kg Suhas Garrett Other [facility] Other 12-06-2022 10:30-0400 Diastolic blood pressure 70 mm[Hg] Suhas Garrett Other [facility] Other 12-06-2022 10:30-0400 Respiratory rate 16 /min Suhasraquel Maoyadan Other [facility] Other 12-06-2022 10:30-0400 SaO2% (BldA) [Mass fraction] 98 % Suhas Garrett Other [facility] Other 12-06-2022 10:30-0400 Systolic blood pressure 146 mm[Hg] Suhas Garrett Other [facility] Other 09-20-2022 11:45-0400 Body height 157.48 cm Suhas Garrett Other [facility] Other 09-20-2022 11:45-0400 Body mass index (BMI) [Ratio] 26.34 kg/m2 Suhas Ugo Other [facility] Other 09-20-2022 11:45-0400 Body weight 65.32 kg Suhas Ugo Other [facility] Other 09-20-2022 11:45-0400 Diastolic blood pressure 70 mm[Hg] Suhas Garrett Other [facility] Other 09-20-2022 11:45-0400 Respiratory rate 16 /min Suhas Garrett Other [facility] Other 09-20-2022 11:45-0400 SaO2% (BldA) [Mass fraction] 98 % Suhas Garrett Other [facility] Other 09-20-2022 11:45-0400 Systolic blood pressure 130 mm[Hg] Suhas Garrett Other [facility] Other 07-22-2022 11:30-0500 Body height 157.48 cm Suhas Garrett Other [facility] Other 07-22-2022 11:30-0500 Body mass index (BMI) [Ratio] 26.85 kg/m2 Suhas Garrett Other [facility] Other 07-22-2022 11:30-0500 Body weight 66.59 kg Suhas Garrett Other [facility] Other 07-22-2022 11:30-0500 Diastolic blood pressure 70 mm[Hg] Suhas Garrett Other [facility] Other 07-22-2022 11:30-0500 Respiratory rate 16 /min Suhas Garrett Other [facility] Other 07-22-2022 11:30-0500 SaO2% (BldA) [Mass fraction] 98 % Suhas Garrett Other [facility] Other 07-22-2022 11:30-0500 Systolic blood pressure 122 mm[Hg] Suhas Garrett Other [facility] Other 04-17-2022 11:45-0500 Body height 157.48 cm Suhas Garrett Other [facility] Other 04-17-2022 11:45-0500 Body mass index (BMI) [Ratio] 26.88 kg/m2 Suhas Garrett Other [facility] Other 04-17-2022 11:45-0500 Body weight 66.68 kg Suhas Garrett Other [facility] Other 04-17-2022 11:45-0500 Diastolic blood pressure 72 mm[Hg] Suhas Garrett Other [facility] Other 04-17-2022 11:45-0500 Respiratory rate 16 /min Suhas Garrett Other [facility] Other 04-17-2022 11:45-0500 SaO2% (BldA) [Mass fraction] 99 % Suhas Garrett Other [facility] Other 04-17-2022 11:45-0500 Systolic blood pressure 138 mm[Hg] Suhas Garrett Other [facility] Other 02-22-2022 10:15-0400 Body height 157.48 cm Suhas Garrett Other [facility] Other 02-22-2022 10:15-0400 Body mass index (BMI) [Ratio] 27.07 kg/m2 Suhas Garrett Other [facility] Other 02-22-2022 10:15-0400 Body weight 67.13 kg Suhas Garrett Other [facility] Other 02-22-2022 10:15-0400 Diastolic blood pressure 70 mm[Hg] Suhas Garrett Other [facility] Other 02-22-2022 10:15-0400 Respiratory rate 16 /min Suhas Garrett Other [facility] Other 02-22-2022 10:15-0400 SaO2% (BldA) [Mass fraction] 97 % Suhas Garrett Other [facility] Other 02-22-2022 10:15-0400 Systolic blood pressure 122 mm[Hg] Suhas Garrett Other [facility] Other 02-21-2022 10:45-0400 70 1 Suhas Garrett Work Phone: [facility] [address] [place] Work Phone: Comment on above: [id number] 02-14-2022 15:45-0400 Body height 157.48 cm Suhas Garrett Other [facility] Other 02-14-2022 15:45-0400 Body mass index (BMI) [Ratio] 26.7 kg/m2 Suhas Garrett Other [facility] Other 02-14-2022 15:45-0400 Body weight 66.23 kg Suhas Garrett Other [facility] Other 02-14-2022 15:45-0400 Diastolic blood pressure 72 mm[Hg] Suhas Garrett Other [facility] Other 02-14-2022 15:45-0400 Respiratory rate 16 /min Suhas Garrett Other [facility] Other 02-14-2022 15:45-0400 SaO2% (BldA) [Mass fraction] 96 % Suhas Garrett Other [facility] Other 02-14-2022 15:45-0400 Systolic blood pressure 132 mm[Hg] Suhas Garrett Other [facility] Other 12-26-2021 11:04-0400 Body height 157.48 cm Suhas Garrett Work Phone: [facility] 250 DO Work Phone: 12-26-2021 11:04-0400 Body mass index (BMI) [Ratio] 26.16 kg/m2 Suhas Garrett Work Phone: [facility] 250 DO Work Phone: 12-26-2021 11:04-0400 Body surface area Derived from formula 1.66 m2 Suhas Garrett Work Phone: [facility] 250 DO Work Phone: 12-26-2021 11:04-0400 Body weight 64.86 kg Suhas Garrett Work Phone: [facility] 250 DO Work Phone: 12-26-2021 11:04-0400 Diastolic blood pressure 68 mm[Hg] Suhas Garrett Work Phone: [facility] DO Work Phone: 12-26-2021 11:04-0400 Heart rate 56 /min Suhas Garrett Work Phone: [facility] 250 DO Work Phone: 12-26-2021 11:04-0400 Systolic blood pressure 126 mm[Hg] Suhas Garrett Work Phone: [facility] 250 DO Work Phone: 12-26-2021 11:00-0400 Diastolic blood pressure 70 mm[Hg] Suhas Mayos Work Phone: [facility] [facility] 250 DO Work Phone: 12-26-2021 11:00-0400 Systolic blood pressure 130 mm[Hg] Suhas Garrett Work Phone: [facility] [facility] DO Work Phone: 12-13-2021 11:39-0400 Diastolic blood pressure 80 mm[Hg] Suhas Garrett Work Phone: [facility] Work Phone: 12-13-2021 11:39-0400 Systolic blood pressure 170 mm[Hg] Suhas Garrett Work Phone: [facility] Work Phone: 12-13-2021 11:22-0400 Diastolic blood pressure 80 mm[Hg] Suhas Garrett Work Phone: [facility] Work Phone: 12-13-2021 11:22-0400 Systolic blood pressure 158 mm[Hg] Suhas Mayoadan Work Phone: [facility] Work Phone: 12-13-2021 11:17-0400 Body height 157.48 cm Suhas Hoffman Ugo Work Phone: [facility] Work Phone: 12-13-2021 11:17-0400 Body mass index (BMI) [Ratio] 26.52 kg/m2 Suhas Garrett Work Phone: [facility] Work Phone: 12-13-2021 11:17-0400 Body surface area Derived from formula 1.67 m2 Suhas Garrett Work Phone: [facility] Work Phone: 12-13-2021 11:17-0400 Body weight 65.77 kg Suhas Garrett Work Phone: [facility] Work Phone: 12-13-2021 11:17-0400 Diastolic blood pressure 80 mm[Hg] Suhas Garrett Work Phone: [facility] Work Phone: 12-13-2021 11:17-0400 Heart rate 60 /min Suhas Garrett Work Phone: [facility] Work Phone: 12-13-2021 11:17-0400 Systolic blood pressure 160 mm[Hg] Suhas Garrett Work Phone: [facility] Work Phone: 10-01-2021 13:30-0400 Body height 157.48 cm Suhas Garrett Other [facility] Other 10-01-2021 13:30-0400 Body mass index (BMI) [Ratio] 26.34 kg/m2 Suhas Garrett Other [facility] Other 10-01-2021 13:30-0400 Body weight 65.32 kg Suhas Garrett Other [facility] Other 10-01-2021 13:30-0400 Diastolic blood pressure 72 mm[Hg] Suhas Garrett Other [facility] Other 10-01-2021 13:30-0400 Respiratory rate 18 /min Suhas Garrett Other [facility] Other 10-01-2021 13:30-0400 SaO2% (BldA) [Mass fraction] 99 % Suhas Garrett Other [facility] Other 10-01-2021 13:30-0400 Systolic blood pressure 130 mm[Hg] Suhas Garrett Other [facility] Other 08-02-2021 13:30-0500 Body height 157.48 cm Suhas Garrett Other [facility] Other 08-02-2021 13:30-0500 Body mass index (BMI) [Ratio] 26.52 kg/m2 Suhasraquel Mayoadan Other [facility] Other 08-02-2021 13:30-0500 Body weight 65.77 kg Suhasraquel Garrett Other [facility] Other 08-02-2021 13:30-0500 Diastolic blood pressure 70 mm[Hg] Suhas Garrett Other [facility] Other 08-02-2021 13:30-0500 Respiratory rate 16 /min Suhas Garrett Other [facility] Other 08-02-2021 13:30-0500 SaO2% (BldA) [Mass fraction] 99 % Suhas Gaeladan Other [facility] Other 08-02-2021 13:30-0500 Systolic blood pressure 118 mm[Hg] Suhas Garrett Other [facility] Other 04-26-2021 13:30-0500 Body height 157.48 cm Suhas Ugo Other [facility] Other 04-26-2021 13:30-0500 Body mass index (BMI) [Ratio] 25.97 kg/m2 Suhas Ugo Other [facility] Other 04-26-2021 13:30-0500 Body weight 64.41 kg Suhas Garrett Other [facility] Other 04-26-2021 13:30-0500 Diastolic blood pressure 74 mm[Hg] Suhas Garrett Other [facility] Other 04-26-2021 13:30-0500 Respiratory rate 17 /min Suhas Garrett Other [facility] Other 04-26-2021 13:30-0500 SaO2% (BldA) [Mass fraction] 98 % Suhas Ugo Other [facility] Other 04-26-2021 13:30-0500 Systolic blood pressure 120 mm[Hg] Suhas Garrett Other [facility] Other Encounters Encounter Date Encounter Type Care Provider Facility Start: 07-28-2024 End: 07-28-2024 ambulatory Suhas Garrett Facility:[facility] Start: 05-25-2024 End: 05-25-2024 ambulatory Suhas Garrett Facility:[facility] Start: 04-16-2024 End: 04-16-2024 ambulatory [facility] Start: 02-23-2024 End: 02-23-2024 ambulatory Gloria Weston MD Facility:[facility] Start: 02-11-2024 End: 02-11-2024 ambulatory [facility] Start: 11-24-2023 End: 11-24-2023 ambulatory Gloria Weston MD Facility:[facility] Start: 11-17-2023 End: 11-17-2023 ambulatory Gloria Weston MD Facility:[facility] Start: 10-20-2023 End: 10-20-2023 ambulatory Gloria Weston MD Facility:[facility] Start: 10-14-2023 End: 10-14-2023 ambulatory Suhas Garrett Facility:[facility] Start: 09-29-2023 End: 09-29-2023 ambulatory Gloria Weston MD Facility:[facility] Start: 09-08-2023 End: 09-08-2023 ambulatory Andshabana Weston MD Facility:[facility] Start: 09-03-2023 End: 09-03-2023 ambulatory Suhas Garrett Facility:[facility] Start: 08-25-2023 End: 08-25-2023 ambulatory Gloria Weston MD Facility: [facility] Start: 07-18-2023 End: 07-18-2023 ambulatory Suhas Garrett Other [facility] Other Start: 07-18-2023 Telephone encounter Suhas Ugo [facility] Start: 07-15-2023 End: 07-15-2023 ambulatory Suhas Garrett Other [facility] Other Start: 07-15-2023 Telephone encounter Suhas Ugo [facility] Start: 07-10-2023 End: 07-10-2023 ambulatory Suhas Garrett Other [facility] Other Start: 07-10-2023 Telephone encounter Suhsaraquel Garrett [facility] Start: 07-07-2023 End: 07-07-2023 ambulatory Suhasraquel Garrett Other [facility] Other Start: 07-07-2023 Telephone encounter Suhasraquel Mayoadan [facility] Start: 07-04-2023 End: 07-04-2023 ambulatory Suhas Gaeladan Other [facility] Other Start: 07-04-2023 Office outpatient vi sit 15 minutes Suhas Garrett [facility] Start: 06-19-2023 Telephone encounter Suhasraquel Garrett [facility] Start: 06-19-2023 End: 06-19-2023 Office outpatient visit 25 minutes Shy Wolf MD Work Phone: [facility] Comment on above: Aortic valve stenosi s, etiology of cardiac valve disease unspecified; Essential hypertension; Hyperlipidemia, unspecified hyperlipidemia type; Never smoked any substance Start: 06-19-2023 End: 06-19-2023 ambulatory SHY WOLF [facility] Other Start: 05-30-2023 End: 05-30-2023 ambulatory Suhas Garrett Other [facility] Other Start: 05-30-2023 Office outpatient vi sit [address] [facility] Start: 05-28-2023 End: 05-28-2023 ambulatory Suhas Garrett Other [facility] Other Start: 05-28-2023 Telephone encounter Suhas Garrett [facility] Start: 04-23-2023 End: 04-23-2023 ambulatory Suhas Garrett Other [facility] Other Start: 04-23-2023 Telephone encounter Suhas Garrett [facility] Start: 04-18-2023 End: 04-18-2023 ambulatory Suhas Garrett Other [facility] Other Start: 04-18-2023 Telephone encounter Suhas Garrett [facility] Start: 03-02-2023 Chart Update Suhas Garrett Work Phone: [place] [address] DO Work Phone: Start: 02-28-2023 End: 02-28-2023 ambulatory Suhas Garrett Other [facility] Other Start: 02-28-2023 Office outpatient vi sit [address] [facility] Start: 02-26-[address] Suhas Garrett Facility:[id number] Start: 01-27-2023 End: 01-27-2023 ambulatory Suhas Garrett Other [facility] Other Start: 01-27-2023 Telephone encounter Suhas Garrett [facility] Start: 12-24-2022 Office outpatient vi sit 25 minutes Suhas Garrett Work Phone: [facility] [address] DO Work Phone: Start: 12-24-[address] Shy Wolf Facility: Start: 12-06-2022 End: 12-06-2022 ambulatory Suhas Garrett Other [facility] Other Start: 12-06-2022 Office outpatient vi sit 15 minutes Suhas Garrett [facility] Start: 09-20-2022 End: 09-20-2022 ambulatory Suhas Garrett Other [facility] Other Start: 09-20-2022 Office outpatient vi sit 15 minutes Suhas Garrett [facility] Start: 08-14-2022 End: 08-14-2022 ambulatory Suhas Garrett Other [facility] Other Start: 08-14-2022 Telephone encounter Suhas Garrett [facility] Start: 07-22-2022 End: 07-22-2022 ambulatory Suhas Garrett Other [facility] Other Start: 07-22-2022 Office outpatient vi sit 15 minutes Suhas Mayos [facility] Start: 04-17-2022 End: 04-17-2022 ambulatory Suhas Garrett Other [facility] Other Start: 04-17-2022 Office outpatient vi sit 15 minutes Suhas Mayos [facility] Start: 04-10-2022 End: 04-10-2022 ambulatory Suhas Garrett Other [facility] Other Start: 04-10-2022 Telephone encounter Suhas Ugo [facility] Start: 04-03-2022 End: 04-03-2022 ambulatory Suhas Garrett Other [facility] Other Start: 04-03-2022 Telephone encounter Suhas Garrett [facility] Start: 04-02-2022 End: 04-02-2022 ambulatory Suhas Garrett Other [facility] Other Start: 04-02-2022 Telephone encounter Suhas Garrett [facility] Start: 02-26-2022 End: 02-26-2022 ambulatory Suhas Garrett Other [facility] Other Start: 02-26-2022 Telephone encounter Suhas Garrett [facility] Start: 02-25-2022 End: 02-25-2022 ambulatory Suhas Garrett Other [facility] Other Start: 02-25-2022 Telephone encounter Suhas Garrett [facility] Start: 02-22-2022 End: 02-22-2022 ambulatory Suhas Garrett Other [facility] Other Start: 02-22-2022 Office outpatient vi sit 25 minutes Suhas Garrett [facility] Start: 02-21-2022 Patient encounter procedure Suhas Garrett Work Phone: [facility] [address] [place] Work Phone: Start: 02-20-2022 End: 02-21-2022 ambulatory MAYO CARBAJAL Facility: Start: 02-14-2022 End: 02-14-2022 ambulatory Suhas Garrett Other [facility] Other Start: 02-14-2022 Office outpatient vi sit 25 minutes Suhas Garrett [facility] [place] Start: 01-11-2022 End: 01-11-2022 ambulatory Suhas Garrett Other [facility] Other Start: 01-11-2022 Nursing evaluation o f patient and report Suhas Garrett [facility] [place] Start: 01-11-2022 Telephone encounter Suhas Garrett [facility] [place] Start: 12-26-2021 Office outpatient vi sit 10 minutes Suhas Garrett Work Phone: [facility] [address] DO Work Phone: Start: 12-26-[address] Suhas Garrett Facility: Start: 12-20-2021 End: 12-20-2021 ambulatory Suhas Garrett Other [facility] Other Start: 12-20-2021 Telephone encounter Suhas [facility] Start: 12-13-2021 Office outpatient vi sit 25 minutes Suhas Garrett Work Phone: [facility] Work Phone: Start: 11-02-2021 End: 11-02-2021 ambulatory Suhas Garrett Other [facility] Other Start: 11-02-2021 Telephone encounter Suhas Garrett [facility] [place] Start: 10-01-2021 End: 10-01-2021 ambulatory Suhas Garrett Other [facility] Other Start: 10-01-2021 Office outpatient vi sit 15 minutes Suhas Garrett [facility] [place] Start: 09-10-2021 End: 09-10-2021 ambulatory Suhas Garrett Other [facility] Other Start: 09-10-2021 Telephone encounter Suhas Garrett [facility] [place] Start: 08-20-2021 End: 08-20-2021 ambulatory Suhas Garrett Other [facility] Other Start: 08-20-2021 Telephone encounter Suhas Garrett [facility] Start: 08-02-2021 End: 08-02-2021 ambulatory Suhas Garrett Other [facility] Other Start: 08-02-2021 Office outpatient vi sit 15 minutes Suhas Garrett [facility] Start: 07-25-2021 End: 07-25-2021 ambulatory Suhas Garrett Other [facility] Other Start: 07-25-2021 Telephone encounter Suhas Garrett [facility] Start: 05-08-2021 End: 05-08-2021 ambulatory Suhas Garrett Other [facility] Other Start: 05-08-2021 Telephone encounter Suhas Garrett [facility] Start: 04-26-2021 End: 04-26-2021 ambulatory Suhas Garrett Other [facility] Other Start: 04-26-2021 Office outpatient vi sit [address] [facility] Procedures Date Procedure Procedure Detail Performing [...] DTaP/Tdap/Td Vaccines (2 - Td or Tdap) [facility] Start: 03-16-2024 End: 03-16-2024 Patient encounter procedure 03/16/2024 11:20 AM EDT Office Visit [facility] [address] [place] [address] Shy Wolf MD [address] [place] [address] [facility] Start: 02-11-2024 End: 02-11-2024 Patient encounter procedure 02/11/2024 12:30 PM EDT Appointment [facility] [address] [place] [address] [facility] Start: 02-08-2024 End: 06-19-2025 [facility] Transthoracic Transthoracic Echo (TTE) Complete Echocardiography Routine Aortic valve stenosis, etiology of cardiac valve disease unspecified Expected: 02/08/2024 (Approximate), Expires: 06/19/2025 [facility] Service Area Work Phone: Comment on above: Expected: 02/08/2024 (Approximate), Expires: 06/19/2025 Start: 06-19-2023 FUV, Provider: Shy Wolf, Status: Pen, Time: 11:00 AM FUV, Provider: Shy Wolf, Status: Pen, [facility]: [facility] Start: 05-28-2023 COVID-19 Vaccine (5 - Moderna series) COVID-19 Vaccine (5 - Moderna series) [facility] Start: 02-26-2023 ECHO, Provider: [facility]UEL HHVI ULTRASOUND , Status: Pen, Time: 10:45 AM ECHO, Provider: SAMUEL YII ULTRASOUND , Status: Pen, Time: 10:45 AM [facility] [address] DO Work Phone: Start: 12-24-2022 FUV, Provider: Shy Wolf, Status: Pen, Time: 11:20 AM FUV, Provider: Shy Wolf, Status: Pen, Time: 11:20 AM [facility] Work Phone: Start: 02-21-2022 CAROTID, Provider: SAMUEL HHVI ULTRASOUND 01,[id number], Status: Pen, Time: 12:30 PM CAROTID, Provider: SAMUEL [facility]VI ULTRASOUND 01,[id number], Status: Pen, Time: 12:30 PM [facility] Work Phone: Start: 02-21-2022 ECHO, Provider: SAMUEL HHVI ULTRASOUND 01,[id number], Status: Pen, Time: 10:45 AM ECHO, Provider: SAMUEL HHVI ULTRASOUND 01,[id number], Status: Pen, Time: 10:45 AM [facility] Work Phone: Start: 01-17-2022 CAROTID, Provider: SAMUEL [facility]VI ULTRASOUND 01,[id number], Status: Pen, Time: 2:30 PM CAROTID, Provider: SAMUEL [facility]VI ULTRASOUND 01,[id number], Status: Pen, Time: 2:30 PM [facility] Work Phone: Start: 01-17-2022 ECHO, Provider: SAMUEL [facility]VI ULTRASOUND 01,[id number], Status: Pen, Time: 1:30 PM ECHO, Provider: SAMUEL [facility]VI ULTRASOUND 01,[id number], Status: Pen, Time: 1:30 PM [facility] Work Phone: Start: 12-26-2021 NURSEVST, Provider: MAGDA DANIEL GOOD HUMOR VENDOR 1,[id number], Status: Pen, Time: 11:00 AM NURSEVST, Provider: MAGDA DANIEL [employer] H[employer]OR VENDOR 1,[id number], Status: Pen, Time: 11:00 AM [facility] Work Phone: Start: 1935 Lipid panel Lipid Panel [facility] Start: 1935 Medicare Annual Wellness Visit Medicare Annual Wellness Visit (AWV) [facility] Start: 1935 Thyroid stimulating hormone measurement TSH Level [facility] Immunizations Immunization Date Immunization Notes Care Provider Raciel camacho 04-17-2022 Moderna COVID-19 Bivalent 50 MCG/0.5ML Intramuscular Suspension Suhas Garrett Work Phone: [facility] [employer] [address] DO Work Phone: 03-21-2022 Fluad Quadrivalent 0 .5 ML Intramuscular Prefilled Syringe [facility]has [facility] Work Phone: 03-21-2022 influenza, seasonal, injectable Suhas Garrett Other [facility] Other 11-14-2021 Moderna COVID-19 Vaccine 100 MCG/0.5ML Intramuscular Suspension Suhas Garrett Work Phone: [facility] Work Phone: 04-05-2021 Moderna COVID-19 Vaccine 100 MCG/0.5ML Intramuscular Suspension Suhas P Ugo Work Phone: [facility] Work Phone: 03-19-2021 influenza, seasonal, injectable Suhas Garrett Other [facility] Other 08-08-2020 Moderna COVID-19 Vaccine 100 MCG/0.5ML Intramuscular Suspension Suhas P Ugo Work Phone: [facility] Work Phone: 07-11-2020 Moderna COVID-19 Vaccine 100 MCG/0.5ML Intramuscular Suspension Suhas P Gaels Work Phone: [facility] Work Phone: 04-28-2020 pneumococcal polysaccharide vaccine, 23 valent Suhas Garrett Other [facility] Other 03-06-2020 Seasonal trivalent influenza vaccine, adjuvanted, preservative free Suhas P Gaels Work Phone: [facility] Work Phone: 03-06-2020 influenza, seasonal, injectable Suhasraquel Mayos Other [facility] Other 02-08-2020 influenza virus vaccine, unspecified formulation Suhas P Kuns Work Phone: [facility] Work Phone: 02-08-2020 influenza, seasonal, injectable Suhas Kuns Other [facility] Other 05-04-2019 zoster vaccine recombinant Suhas Mayos Other [facility] Other 03-09-2019 influenza, high dose seasonal, preservative-free Suhas P Kuns Work Phone: [facility] Work Phone: 03-04-2019 influenza, seasonal, injectable Suhas Maoys Other [facility] Other 02-04-2019 zoster vaccine recombinant Suhas Mayos Other [facility] Other 05-12-2018 tetanus toxoid, redu bety diphtheria toxoid, and acellular pertussis vaccine, adsorbed Suhas Mayos Other [facility] Other 03-16-2018 Seasonal trivalent influenza vaccine, adjuvanted, preservative free Shy Wolf MD Work Phone: [facility] Work Phone: 03-09-2018 influenza virus vaccine, unspecified formulation Suhas P Kuns Work Phone: [facility] Work Phone: 04-09-2017 influenza virus vaccine, unspecified formulation Suhas P Kuns Work Phone: [facility] Work Phone: 03-28-2017 Seasonal trivalent influenza vaccine, adjuvanted, preservative free Suhas P Ugo Work Phone: [facility] Work Phone: 05-23-2016 pneumococcal conjuga te vaccine, 13 valent Suhas Kuns Other [facility] [employer] Other 04-01-2016 Seasonal trivalent influenza vaccine, adjuvanted, preservative free Suhas P Gaels Work Phone: [facility] Work Phone: 03-09-2016 influenza virus vaccine, unspecified formulation Suhas Dalton Garrett Work Phone: [facility] Work Phone: 03-09-2016 pneumococcal conjuga te vaccine, 13 valent Suhas P Kuns Work Phone: [facility] Work Phone: 04-07-2015 influenza, injectabl e, quadrivalent, contains preservative Suhas P Ugo Work Phone: [facility] Work Phone: 03-09-2015 influenza virus vaccine, unspecified formulation Suhas P Ugo Work Phone: [facility] Work Phone: 04-05-2014 influenza, seasonal, injectable, preservative free Suhas P Gaels Work Phone: [facility] Work Phone: 03-09-2014 influenza virus vaccine, whole virus Suhas Garrett Work Phone: [facility] Work Phone: 03-23-2013 influenza, seasonal, injectable Suhas P Gaels Work Phone: [facility] Work Phone: 03-09-2013 influenza virus vaccine, unspecified formulation Suhas P Ugo Work Phone: [facility] Work Phone: 04-14-2012 influenza, injectabl e, quadrivalent, contains preservative Suhas Garrett Other [facility] [employer] Other 06-09-2011 influenza virus vaccine, unspecified formulation Suhas Garrett Work Phone: [facility] Work Phone: 06-09-2010 influenza virus vaccine, unspecified formulation Suhas Garrett Work Phone: [facility] Work Phone: 06-09-2009 influenza virus vaccine, unspecified formulation Suhas Garrett Work Phone: [facility] Work Phone: 05-30-2009 novel [id number], preservative-free, injectable Suhas Garrett Work Phone: [facility] Work Phone: 10-19-2007 varicella virus vaccine Belkys Garrett Work Phone: [facility] Work Phone: 06-09-2006 pneumococcal polysaccharide vaccine, 23 valent Suhas Garrett Work Phone: [facility] Work Phone: Payers Date Payer Category Payer Self-pay 2022 Private Health Insurance [id number] 2001 Medicare MEDICARE MEDICAR E RAILROAD [id number] 2001-Present [address] [place] [address] [id number] 2001 Unknown 1959 Medicare [id number] 1959 Private Health Insurance [id number] 1936 Unknown [id number] .593 1936 Unknown [id number] .356 1936 Unknown [id number] [id number] .356 1936 Unknown [id number] [id number] .1068 1936 Unknown [id number] .1246 1936 Unknown [id number] 2.840.1.101823.3.579.2 .196 1936 Unknown [id number] 2.840.1.533308.3.579.2 .196 1936 Unknown [id number] 2.840.1.693189.3.579.2 .196 1936 Unknown [id number] 2.840.1.184954.3.579.2 .196 1936 Unknown [id number] 2.840.1.758874.3.579.2 .196 1936 Unknown [id number] 2.840.1.595235.3.579.2 .196 1936 Unknown [id number] 2.840.1.885192.3.579.2 .196 1936 Unknown [id number] .1244 1936 Unknown [id number] .1244 Unknown [id number] [id number] .531 Unknown [id number] [id number] .531 Unknown [id number] .531 Unknown [id number] .531 Social History Date Type Detail Facility Unknown if ever smoked [facility] Other Start: 06-19-2023 Sex Assigned At [facility] [employer] Other Start: 06-19-2023 Caffeine use Caffeine use [facility] Work Phone: Start: 06-19-2023 Tobacco smoking status NHIS Never smoked tobacco [facility] Work Phone: Start: 06-19-2023 Tobacco use and exposure Smokeless tobacco non-user [facility] Work Phone: Start: 1935 [facility] Start: 06-09-2023 End: 06-19-2023 Exposure to SARS-CoV-2 (event) Not sure [facility] Clinical Notes 02-15-2015 to 07-18-2023 Note Date & Type Note Facility 07-18-2023 Evaluation note Encounter Date Diagnosis Assessment Notes Jul, PMR (polymya lgia rheumati ca) (ICD-10 - M35.3) [facility] Other 02-06-2024 Evaluation note* Encounter Date Diagnosis Assessment Notes Treatment Notes Treatment Clinical Notes Jul, PMR (polymyalgia rheumatica) (ICD-10 - M35.3) [facility] Other 02-01-2024 Evaluation note* Encounter Date Diagnosis Assessment Notes Treatment Notes Treatment Clinical Notes Jul, Hypothyroidism (ICD-10 - E03.9) [facility] Other 01-29-2024 Evaluation note* Encounter Date Diagnosis Assessment Notes Treatment Notes Treatment Clinical Notes Jun, Hypothyroidism (ICD- 10 - E03.9) Jun, Hyperthyroidism (ICD-10 - E05.90) [facility] Other 01-26-2024 Evaluation note* Encounter Date Diagnosis [...] medications in combination with eachother. 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 [...] requires sooner she is welcome to call. [facility] Other 01-11-2024 Evaluation note* Encounter Date Diagnosis Assessment Notes Treatment Notes Treatment Clinical Notes Jun, PMR (polymyalgia rheumatica) (ICD-10 - M35.3) [facility] Other 01-11-2024 History of Present illness Narrative* [...] is being tapered gradually Shy Wolf MD, [facility] Review of Systems All other [...] direction and in the presence of Shy Wlof [facility]. [facility] Work Phone: 1(582) 221-489001-11-2024 Instructions* Patient Instructions* Yevgeniy Cortez MA - [...] time of your visit. [facility] Work Phone: 1(296) 655-165912-22-2023 Evaluation note* Encounter Date Diagnosis Assessment Notes [...] pain control. We will continue to monitor. 22 Dec, 2023 Essential (primary) hypertension (ICD-10 - I10) The [...] recommend the patient get the RSV vaccine. [facility] Other 12-20-2023 Evaluation note* Encounter Date Diagnosis Assessment Notes Treatment Notes Treatment Clinical Notes May, Hypertension (ICD-10 - I10) May, Hypothyroidism (ICD-10 - E03.9) [facility] Other 11-10-2023 Evaluation note* Encounter Date Diagnosis Assessment Notes Treatment Notes Treatment Clinical Notes Apr, PMR (polymyalgia rheumatica) (ICD-10 - M35.3) [facility] Other 09-22-2023 Evaluation note* Encounter Date Diagnosis Assessment Notes Treatment Notes Treatment Clinical Notes Feb, PMR (polymyalgia rheumatica) (ICD-10 - M35.3) She was encouraged to take 2.5mg daily. Patient is agreeable. Feb, Hypertension (ICD-10 - I10) Blood pressure is satisfactory, she is to follow with cardiology as scheduled. [facility] Other 08-21-2023 Evaluation note* Encounter Date Diagnosis Assessment Notes Treatment Notes Treatment Clinical Notes Jan, Hypertension (ICD-10 - I10) [facility] Other 06-30-2023 Evaluation note* Encounter Date Diagnosis [...] would like to do. Patient is agreeable. [facility] Other 04-14-2023 Evaluation note* Encounter Date Diagnosis [...] tablets daily. We will continue to monitor. [facility] Other 03-08-2023 Evaluation note* Encounter Date Diagnosis Assessment Notes Treatment Notes Treatment Clinical Notes Aug, PMR (polymyalgia rheumatica) (ICD-10 - M35.3) [facility] Other 02-13-2023 Evaluation note* Encounter Date Diagnosis [...] states she has an upcoming appointment with cattle feeder and she will discuss making medication changes at that time. [facility] Other 11-09-2022 Evaluation note* Encounter Date Diagnosis [...] can cut Apr, Hyperlipidemia (ICD-10 - E78.5) [facility] Other 11-02-2022 Evaluation note* Encounter Date Diagnosis Assessment Notes Treatment Notes Treatment Clinical Notes Apr, PMR (polymyalgia rheumatica) (ICD-10 - M35.3) [facility] Other 10-26-2022 Evaluation note* Encounter Date Diagnosis Assessment Notes Treatment Notes Treatment Clinical Notes Mar, Lumbar back pain (ICD-10 - M54.50) [facility] Other 09-20-2022 Evaluation note* Encounter Date Diagnosis Assessment Notes Treatment Notes Treatment Clinical Notes Feb, Elevated liver function tests (ICD-10 - R79.89) [facility] Other 09-16-2022 Evaluation note* Encounter Date Diagnosis Assessment Notes Treatment Notes Treatment Clinical Notes Feb, Acute pain of left shoulder (ICD-10 - M25.512) [place] [facility] report reviewed from 02/20/22 . The [...] pain (ICD-10 - R10.13) The patient advised Rea could be causing her GI upset , [...] month Boniva at her next office visit. [facility] Other 09-08-2022 Evaluation note* Encounter Date Diagnosis [...] (ICD-10 - M85.80) Noted on Lumbar x-ray. [facility] Other 08-05-2022 Evaluation note* Encounter Date Diagnosis Assessment Notes Treatment Notes Treatment Clinical Notes Jan, COVID-19 (ICD-10 - U07.1) [facility] Other 08-05-2022 Evaluation note* Encounter Date Diagnosis Assessment Notes Treatment Notes Treatment Clinical Notes Jan, Cough (ICD-10 - R05.9) In house covid test is positive. Treatment plan discussed in TE. [facility] Other 07-14-2022 Evaluation note* Encounter Date Diagnosis Assessment Notes Treatment Notes Treatment Clinical Notes Dec, PMR (polymyalgia rheumatica) (ICD-10 - M35.3) [facility] Other 05-27-2022 Evaluation note* Encounter Date Diagnosis Assessment Notes Treatment Notes Treatment Clinical Notes October, PMR (polymyalgia rheumatica) (ICD-10 - M35.3) [facility] Other 04-25-2022 Evaluation note* Encounter Date Diagnosis [...] The patient encourged to continue following with cattle feeder annually in December as scheduled. I did forward a copy of most current blood work results . [facility] Other 04-04-2022 Evaluation note* Encounter Date Diagnosis Assessment Notes Treatment Notes Treatment Clinical Notes Sep, PMR (polymyalgia rheumatica) (ICD-10 - M35.3) Sep, Hypertension (ICD-10 - I10) [facility] Other 02-24-2022 Evaluation note* Encounter Date Diagnosis [...] if needed. We will continue to montior. [facility] Other 02-16-2022 Evaluation note* Encounter Date Diagnosis Assessment Notes Treatment Notes Treatment Clinical Notes Jul, PMR (polymyalgia rheumatica) (ICD-10 - M35.3) [facility] Other 11-30-2021 Evaluation note* Encounter Date Diagnosis Assessment Notes Treatment Notes Treatment Clinical Notes Apr, PMR (polymyalgia rheumatica) (ICD-10 - M35.3) [facility] Other 11-18-2021 Evaluation note* Encounter Date Diagnosis [...] Hypothyroidism (ICD-10 - E03.9) Blood work ordered. [facility] Other [id number] History general Narrative - Reported* Type Description Date Medical History Shingles Medical History 2010, 02-15-15-mammogram-negativ e Medical History 01/[id number]-fpoemaepzeu-qyhqnx, repea t in 3 yrs Medical History 03/2017- colonoscopy- normal Medical History f/u with cardiology NO Medical History ECHO 09/2016 Surgical History Appendectomy Surgical History Gallbladder Removal Surgical History Ovarian Cyst Removal Surgical History Coccyx repair Surgical History Cataracts Bilateral Eyes Surgical History thyroidectomy Dr. Forbes 10/14/2019 Hospitalization History Childbirth x5 Hospitalization History See Above [facility] Other Evaluation noteNo InformationNort Projectioneering Other Evaluation note* Diagnosis Aortic valve stenosis, etiology of cardiac valve disease unspecified Essential hypertension Unspecified essential hypertension Hyperlipidemia, unspecified hyperlipidemia type Never smoked any substance documented in this encounter [facility] Work Phone: Chief Complaint * LAVONNE IVLLATORO is being seen for an annual follow-up [...] bilateral carotid bruits. 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 * ASSESSMENT AND [...] being tapered gradually * Shy Wolf MD, [facility] Family History No Family History Records FoundUnknown [...] PMR (polymyalgia rhe umatica) (M35.3) Referral Organization [facility] [place] Referring Provider First Name Suhas Referring Provider Last Name Gaeladan Referring Provider Specialty Family Prac sukhjinder Referred Organization [facility] [place] [address] [place],[address] Referred Provider Specialty Rheumatology Referral Priority Routine [...] disease unspecified Procedures Transthoracic Echo (TTE) Complete [place] ECHO TTHRC R-T 2D W/WOM-MODE COMPL SPEC&COLR D Shy Wolf MD [address] [facility], [address] [address] Referral ID Status Reason Start Date Expiration Date Visits Requested Visits Authorized Pending Review Perform Procedure 06/19/2023 06/18/2024 1 1 Specialty Diagnoses / Procedures Referred By Contac t Referred To Contact Cardiology Diagnoses Aortic valve stenosis, etiology of cardiac valve disease unspecified Procedures Follow Up In Cardiology Shy Wolf MD [address] [facility] [address] [place] [address] Shy Wolf MD [address] [facility] [address] [place] [address] Referral ID Status Reason Start Date Expiration Date V isits Requested Visits Authorized [id number] Authorized 06/19/2023 06/18/2024 1 1 Additional Source Comments REASON FOR VISIT (unrecogniz ed section and content) Reason Comments Follow-up 6m INFORMATION SOURCE (unrecogn ized section and content) DATE CREATED AUTHOR 03/06/2022 [facility] DATE CREATED AUTHOR AUTHOR'S ORGANIZ ATION 12/25/2022 [facility] DATE CREATED AUTHOR AUTHOR'S ORGANIZ ATION 12/25/2022 [facility] DATE CREATED AUTHOR AUTHOR'S ORGANIZ ATION 03/03/2023 [facility] DATE CREATED AUTHOR AUTHOR'S ORGANIZ ATION 02/17/2024 [facility] DATE CREATED AUTHOR AUTHOR'S ORGANIZ ATION 02/29/2024 [facility] DATE CREATED AUTHOR AUTHOR'S ORGANIZ ATION 04/18/2024 [facility] DATE CREATED AUTHOR AUTHOR'S ORGANIZ ATION 07/29/2024 [facility] Care Teams (unrecognized sec tion and content) [employer] Machine Operator Relationship Specialty Start Date End Date [...] BE BASED ON THE PRIMARY CLINICAL RECORDS. [facility]. provides no warranty or guarantee of the accuracy or completeness of information in this document.
--- NOTE | 2024-08-19 11:18 | PM.CN ---
Consult Note: HPI Data of Consult Patient: known to practice within the last 3 years Requesting Physician: Norma Jimenez NP Primary Care Provider: Suhas Arizmendi, DO Consult Narrative Reason for consult: back pain Narrative: 89yof who presents for assessment. chronic neck and low back pain. longstanding hx of pain secondary to degenerative changes, prior cervical and lumbar MRI consistent with multilevel stenosis and spondylosis as well as DDD. Pain today 7-8/10 in low back, aching. Pain increasing with all activity, pain improved with sitting and a hot shower. pt has a hx of PMR as well. denies falls or injury since last visit. continues to engage in HEP >6 weeks without improvement. per pt prior bilateral SIJ injection provided >50% improvement greater than 6 months and she would like to repeat. cc:: CC: Norma Jimenez NP Review of Systems ROS Status of ROS 10 or more systems reviewed and unremarkable except as noted in history and below Musculoskeletal Reports: back pain, neck pain and joint pain PFSH PFSH Medical History Polymyalgia rheumatica ?M35.3 - Polymyalgia rheumatica (ICD-10) Hyperthyroidism ?E05.90 - Thyrotoxicosis, unspecified without thyrotoxic crisis or storm (ICD-10) Heart murmur ?R01.1 - Cardiac murmur, unspecified (ICD-10) HTN (hypertension) ?I10 - Essential (primary) hypertension (ICD-10) Surgical History 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 - Postprocedural hypothyroidism (ICD-10) Hx of cholecystectomy ?Z90.49 - Acquired absence of other specified parts of digestive tract (ICD-10) History of ovarian cystectomy ?Z98.890 - Other specified postprocedural states (ICD-10) ?Z87.42 - Personal history of other diseases of the female genital tract (ICD-10) History of appendectomy ?Z90.49 - Acquired absence of other specified parts of digestive tract (ICD-10) Meds Home Medications and Allergies Home Medications ?Medication ?Instructions ?Recorded ?Confirmed ?Type acetaminophen 650 mg 650 mg PO Q8H PRN pain 08/25/23 11/24/23 History tablet,extended release (8 Hour Pain Reliever) amlodipine 10 mg tablet (Norvasc) 10 mg PO DAILY 08/25/23 11/24/23 History aspirin 81 mg capsule 81 mg PO DAILY 08/25/23 11/24/23 History carvedilol 6.25 mg tablet 6.25 mg PO Q12H 08/25/23 11/24/23 History levothyroxine 100 mcg tablet 100 mcg PO DAILY 08/25/23 11/24/23 History losartan 100 1 tab PO DAILY 08/25/23 11/24/23 History mg-hydrochlorothiazide 12.5 mg tablet multivitamin (Daily Multi-Vitamin 1 tab PO DAILY 08/25/23 11/24/23 History tablet) omega 7-sku-yjd-fish oil 1,000 mg 1 cap PO DAILY 08/25/23 11/24/23 History (120 mg-180 mg) capsule (Fish Oil) calcium carbonate (Calcium 600) 600 mg PO DAILY 09/29/23 11/24/23 History prednisone 2.5 mg tablet mg 11/17/23 History oxycodone-acetaminophen 5 mg-325 1 tab PO BID PRN pain #60 tabs 02/23/24 Rx mg tablet (Percocet) oxycodone-acetaminophen 5 mg-325 1 tab PO BID PRN pain #60 tabs 03/25/24 Rx mg tablet (Percocet) oxycodone-acetaminophen 5 mg-325 1 tab PO BID PRN pain #60 tabs 06/10/24 Rx mg tablet (Percocet) oxycodone-acetaminophen 5 mg-325 1 tab PO BID PRN pain #60 tabs 08/05/24 Rx mg tablet (Percocet) Allergies Allergy/AdvReac Type Severity Reaction Status Date / Time amoxicillin Allergy Mild Rash Verified 11/24/23 11:09 divalproex sodium (From Allergy Unknown Verified 11/24/23 11:09 Depakote) hydrocodone Allergy Unknown Verified 11/24/23 11:09 phenytoin (From Dilantin) Allergy Unknown Verified 11/24/23 11:09 alendronate sodium (From AdvReac eye pain Verified 11/24/23 11:09 Fosamax) Exam Constitutional Documenting provider has reviewed patient's vital signs: yes Common normals: no apparent distress, oriented x3, healthy appearing, alert and well nourished General appearance: cooperative HENMT Common normals: normocephalic, hearing grossly normal bilaterally and moist oral mucous membranes Head and scalp: normocephalic Eye Common normals: PERRL Pupil: PERRL Neck & C-Spine Common normals: full ROM General: normal visual inspection Chest Common normals: inspection of chest normal Respiratory Common normals: normal respiratory effort, no retractions and no use of accessory muscles Back & Pelvis Lumbar spine/lower back: pain with ROM, lumbar spinal tenderness and paraspinal muscle tenderness Sacroiliac joints: SI joint(s) abnormal Other: bilateral SIJ positive marisela(patricks), gaenslens, thigh thrust, compression test Neuro Common normals: oriented x3, CN's II-XII intact bilaterally, moves all extremities, no focal motor deficits, no sensory deficits noted and deep tendon reflexes 2+ bilaterally Sensorium/orientation: alert Motor exam: strength 5/5 throughout and no movement abnormalities noted Psych Common normals: mental status grossly normal, thought process normal, cooperative, affect normal, speech normal and activity/motor behavior normal Speech: normal speech Thought process: normal thought process Results Additional Findings Additional findings: If on a controlled substance or opioids, I have checked an [place] report on this patient and there are no aberrancies noted in the prescribing history.??If on a controlled substance or opioid a drug screen was completed and reviewed within the last year, and if there has not been a drug screen completed we ordered one today to monitor higher risk, state monitored pain medication use. As part of providing excellent, safe, comprehensive care, the following was completed at our patient's visit: 1. A medication reconciliation and review to ensure accurate knowledge of current/active medications, including asking our patients to inform us about any pkeu-sbo-shwkbig medications or herbal remedies/nutritional supplements/alternative remedies. 2. A review to specifically ensure our patients have had annual screening for screening for depression, screening for tobacco use, and screening for unhealthy alcohol use. For concerning screenings had a discussion with the patient, provided patient education, and recommended follow-up with primary care provider when appropriate. If patient noted with a risk of falling, they received education on strength, gait, and balance training to prevent future risk of falling. Portions of this note may have been carried over from the previous visit and updated as appropriate. Please note this office utilizes paper charting in addition to the electronic medical record. A list of current medications, vitals, and PMH is available there as the clinical staff outside of myself do not have access to [facility] chart[facility] during the clinic day operations. As part of providing quality comprehensive care the current medications, vitals, and PMH were reviewed in the paper chart. Assessment and Plan Assessment and Plan (1) Sacroiliitis: Assessment and Plan: WIN 29% with moderate to severe pain impacting ADLs, sitting, sleeping, social life, and travel (2) Lumbar stenosis with neurogenic claudication: (3) Lumbar spondylosis: (4) Cervical stenosis of spinal canal: (5) Cervical spondylosis: (6) Osteoarthritis of shoulders, bilateral: (7) Generalized OA: (8) Polymyalgia rheumatica: (9) Chronic use of opiate drug for therapeutic purpose: Assessment and Plan: I feel these medications are improving the patient's quality of life and allow them to tolerate activities of daily living as well as participate in recreational activity.? The patient does not report intolerable side effects. The patient is NOT opioid naive and non-pharmacologic and non-opioid treatment has failed to significantly relieve the patient's pain and improve functionality. The patient has a diagnosis that is related to a somatic or visceral pain etiology. ? ?? I reviewed with the patient the potential risks and side effects with the use of? opioid medications including but not limited to respiratory depression,? sedation, and even . I verified the patient has access to naloxone should? these effects occur. I advised the patient to avoid the use of any other? sedation substances including alcohol, THC, and benzodiazepines while? taking opioid medications due to the risk of compounding side effects and? detrimental outcomes. I reviewed the [employer] PRINT OPER[employer], pain treatment agreement, urine? drug screen, and opioid start talking forms. The patient was advised to let? their family know they had Naloxone in case they would need to administer? the medication.? ?? A drug screen was completed within the last year, and no aberrancies were noted regarding their use of controlled substances. The patient understands they are subject to the terms and conditions of the pain contract that they have signed. ? ?? I have checked an [place]AR[place] report on this patient today and there are no aberrancies noted in the prescribing history.? Plan repeat bilateral SIJ injection under fluoroscopy continue current medications continue HEP as tolerated f/u 2 weeks after injection
== END 2024-08-19 10:33 | disposition home or self-care (01) ==
LOC: PM 10:32
PROVIDERS: PCP Family Medicine; Visit Provider Nurse Practitioner
DX: M46.1 Sacroiliitis, not elsewhere classified (principal); M48.062 Spinal stenosis, lumbar region with neurogenic claudication; M47.816 Spondylosis without myelopathy or radiculopathy, lumbar region; M48.02 Spinal stenosis, cervical region; M47.812 Spondylosis without myelopathy or radiculopathy, cervical region; M19.012 Primary osteoarthritis, left shoulder; M19.011 Primary osteoarthritis, right shoulder; M19.90 Unspecified osteoarthritis, unspecified site; M35.3 Polymyalgia rheumatica; Z79.891 Long term (current) use of opiate analgesic
CPT/HCPCS: G0463

== ENCOUNTER → 2024-08-30 11:23 | Day surgery (SDC) | payer MEDICARE, OTHER, SELFPAY ==
--- OUTSIDE RECORDS SUMMARY | 2024-08-30 11:45 | XMS_ITS | CCD ---
Author Organization [facility]ini[facility] Care Team Providers Care Innovation Manager Name Role Phone Suhas Garrett Unavailable Suhas Garrett Unavailable Unavailable Unavailable MAYO CARBAJAL Consulting Unavailable [facility], DR BAIRD Primary Care Unavailable WALT VELIZ [...] Translations: [Fosamax] Drug Allergy 3 Unknown, Other [facility] Repository (20 sources) Amoxicillin; Translations: [amoxicillin] Drug Allergy 9 hives [facility] [employer] [facility] [employer] Other (20 sources) Phenytoin; Translations: [Dilantin CAPS] Drug Allergy 3 Rash [facility] [employer] Other (20 sources) Valproate; Translations: [Depakote ER TB24] Drug Allergy [facility] [employer] Other (1 source) Alendronate Drug Allergy [facility] Repository (1 source) Amoxicillin Drug Allergy [facility] Repository (1 source) Phenytoin Drug Allergy [facility] Repository (1 source) Valproate Drug Allergy [facility] Repository (20 sources) Acetaminophen / HYDROcodone Drug Allergy elevated liver enzymes [facility] [employer] Other (1 source) Alendronate Drug Allergy 3 [facility] (3 sources) HYDROcodone; Translations: [HYDROCODONE] Drug Allergy 4 GI Upset [facility] Work Phone: (3 sources) Valproate; Translations: [VALPROIC ACID] Drug Allergy 3 [facility] Work Phone: (1 source) Acetaminophen Drug Allergy 4 [facility] Repository (1 source) Alendronate Drug Allergy 4 [facility] Repository (1 source) Amoxicillin Drug Allergy 4 [facility] Repository (1 source) HYDROcodone Drug Allergy 4 [facility] Repository (1 source) Phenytoin Drug Allergy 4 [facility] Repository (1 source) Valproate Drug Allergy 4 [facility] Repository Medications Current Medications Medication Drug [...] tablet by mouth once daily. 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 [facility] Comment on above: Performed By: #### V [id number], CMP, TSH3, LIPID, CBC, T4F, ESR #### [address] Eosinophils (Bld) [#/Vol] 0.1 10*3/uL Normal 0.0-0.45 [facility] Comment on above: Performed By: #### V [id number], CMP, TSH3, LIPID, CBC, T4F, ESR #### [address] Eosinophils/100 WBC (Bld) 2.2 % Normal . [facility] Comment on above: Performed By: #### V [id number], CMP, TSH3, LIPID, CBC, T4F, ESR #### [address] Erythrocyte distribution width (RBC) [Ratio] 13.5 % Normal 11.9-15.3 [facility] Comment on above: Performed By: #### V [id number], CMP, TSH3, LIPID, CBC, T4F, ESR #### [address] Hematocrit (Bld) [Volume fraction] 37.9 % Normal 34.0-46.4 [facility] Comment on above: Performed By: #### V [id number], CMP, TSH3, LIPID, CBC, T4F, ESR #### [address] Hemoglobin (Bld) [Mass/Vol] 12.9 g/dL Normal 11.8-15.4 [facility] Comment on above: Performed By: #### V [id number], CMP, TSH3, LIPID, CBC, T4F, ESR #### [address] Lymphocytes (Bld) [#/Vol] 2.2 10*3/uL Normal 1.00-4.8 [facility] Comment on above: Performed By: #### V [id number], CMP, TSH3, LIPID, CBC, T4F, ESR #### [address] Lymphocytes/100 WBC (Bld) 34.3 % Normal . [facility] Comment on above: Performed By: #### V [id number], CMP, TSH3, LIPID, CBC, T4F, ESR #### [address] MCH (RBC) [Entitic mass] 33.5 pg Normal 24.7-34.3 [facility] Comment on above: Performed By: #### V [id number], CMP, TSH3, LIPID, CBC, T4F, ESR #### [address] MCV (RBC) [Entitic vol] 98.4 fL Normal 80-100 [facility] Comment on above: Performed By: #### V [id number], CMP, TSH3, LIPID, CBC, T4F, ESR #### [address] Mean Corpuscular HGB Conc 34.1 g/dL Normal 32.0-35.0 [facility] Comment on above: Performed By: #### V [id number], CMP, TSH3, LIPID, CBC, T4F, ESR #### [address] Monocytes (Bld) [#/Vol] 0.6 10*3/uL Normal 0.0-0.8 [facility] Comment on above: Performed By: #### V [id number], CMP, TSH3, LIPID, CBC, T4F, ESR #### [address] Monocytes/100 WBC (Bld) 9.8 % Normal . [facility] Comment on above: Performed By: #### V [id number], CMP, TSH3, LIPID, CBC, T4F, ESR #### [address] Neutrophils (Bld) [#/Vol] 3.4 10*3/uL Normal 1.8-7.7 [facility] Comment on above: Performed By: #### V [id number], CMP, TSH3, LIPID, CBC, T4F, ESR #### [address] Neutrophils/100 WBC (Bld) 52.6 % Normal . [facility] Comment on above: Performed By: #### V [id number], CMP, TSH3, LIPID, CBC, T4F, ESR #### [address] NRBC% 0.3 /100{WBC} Normal 0-0.5 [facility] Comment on above: Performed By: #### V [id number], CMP, TSH3, LIPID, CBC, T4F, ESR #### [address] Platelet mean volume (Bld) [Entitic vol] 9.3 fL Normal 6.3-10.7 [facility] Comment on above: Performed By: #### V [id number], CMP, TSH3, LIPID, CBC, T4F, ESR #### [address] Platelets (Bld) [#/Vol] 208 10*3/uL Normal 150-450 [facility] Comment on above: Performed By: #### V [id number], CMP, TSH3, LIPID, CBC, T4F, ESR #### [facility] [address] RBC (Bld) [#/Vol] 3.85 10*6/uL Normal 3.60-5.00 [facility] Comment on above: Performed By: #### V [id number], CMP, TSH3, LIPID, CBC, T4F, ESR #### [facility] [address] WBC (Bld) [#/Vol] 6.6 10*3/uL Normal 3.8-11.6 [facility] Comment on above: Performed By: #### V [id number], CMP, TSH3, LIPID, CBC, T4F, ESR #### [address] Comprehensive Metabolic Pane nory 07-28-2024 Albumin [Mass/Vol] 3.7 g/dL Normal 3.5-5.7 [facility] Comment on above: Performed By: #### V [id number], CMP, TSH3, LIPID, CBC, T4F, ESR #### [address] Albumin/Globulin [Mass ratio] 1.9 {ratio} Normal [facility] Comment on above: Performed By: #### V [id number], CMP, TSH3, LIPID, CBC, T4F, ESR #### [address] ALP [Catalytic activity/Vol] 62 U/L Normal 34-104 [facility] Comment on above: Performed By: #### V [id number], CMP, TSH3, LIPID, CBC, T4F, ESR #### [address] ALT [Catalytic activity/Vol] 21 U/L Normal 7-52 [facility] Comment on above: Performed By: #### V [id number], CMP, TSH3, LIPID, CBC, T4F, ESR #### [address] Anion gap [Moles/Vol] 8.2 mmol/L Normal 6.0-15.0 [facility] Comment on above: Performed By: #### V [id number], CMP, TSH3, LIPID, CBC, T4F, ESR #### [address] AST [Catalytic activity/Vol] 19 U/L Normal 13-39 [facility] Comment on above: Performed By: #### V [id number], CMP, TSH3, LIPID, CBC, T4F, ESR #### [address] Bilirubin [Mass/Vol] 0.7 mg/dL Normal 0.3-1.0 [facility] Comment on above: Performed By: #### V [id number], CMP, TSH3, LIPID, CBC, T4F, ESR #### [address] Calcium [Mass/Vol] 9.7 mg/dL Normal 8.6-10.3 [facility] Comment on above: Performed By: #### V [id number], CMP, TSH3, LIPID, CBC, T4F, ESR #### [address] Chloride [Moles/Vol] 107 mmol/L Normal 98-107 [facility] Comment on above: Performed By: #### V [id number], CMP, TSH3, LIPID, CBC, T4F, ESR #### [address] CO2 [Moles/Vol] 31.5 mmol/L High 21.0-31.0 [facility] Comment on above: Performed By: #### V [id number], CMP, TSH3, LIPID, CBC, T4F, ESR #### [address] Creatinine [Mass/Vol] 0.67 mg/dL Normal 0.60-1.20 [facility] Comment on above: Performed By: #### V [id number], CMP, TSH3, LIPID, CBC, T4F, ESR #### [place] [address] [place] GFR/1.73 sq M.predicted MDRD (S/P/Bld) [Vol rate/Area] mL/min/{1.73_m2} Normal [facility] Comment on above: Performed By: #### V [id number], CMP, TSH3, LIPID, CBC, T4F, ESR #### [facility] [address] Globulin (S) [Mass/Vol] 1.9 g/dL Normal [facility] Comment on above: Performed By: #### V [id number], CMP, TSH3, LIPID, CBC, T4F, ESR #### [facility] [address] Glucose [Mass/Vol] 89 mg/dL Normal 70-100 [facility] Comment on above: Result Comment: [facility] Glucose Reference Range is dependent on time and content of last meal. Glucose of more than 200 mg/dL in a nonstressed, ambulatory subject supports the diagnosis of Diabetes Mellitus. ADA recommended reference range Performed By: #### V [id number], CMP, TSH3, LIPID, CBC, T4F, ESR #### [address] Potassium [Moles/Vol] 3.7 mmol/L Normal 3.5-5.1 [facility] Comment on above: Performed By: #### V [id number], CMP, TSH3, LIPID, CBC, T4F, ESR #### [address] Protein [Mass/Vol] 5.6 g/dL Low 6.4-8.9 [facility] Comment on above: Performed By: #### V [id number], CMP, TSH3, LIPID, CBC, T4F, ESR #### [address] Sodium [Moles/Vol] 143 mmol/L Normal 136-145 [facility] Comment on above: Performed By: #### V [id number], CMP, TSH3, LIPID, CBC, T4F, ESR #### [address] Urea nitrogen [Mass/Vol] 19 mg/dL Normal 7-25 [facility] Comment on above: Performed By: #### V [id number], CMP, TSH3, LIPID, CBC, T4F, ESR #### [address] Erythrocyte Sedimentation Ra amy 07-28-2024 ESR (Bld) [Velocity] 9 mm/h Normal 0-29 [facility] Comment on above: Result Comment: PERF ORMED BY: [place] [address] PATHOLOGIST AUTOMATIC DEVELOPER JASIEL HURTADO M.D. Performed By: #### V [id number], CMP, TSH3, LIPID, CBC, T4F, ESR #### [address] Free T4 (Free Thyroxine)on 0 07-28-2024 Free T4 [Mass/Vol] 0.74 ng/dL Normal 0.61-1.12 [facility] Comment on above: Performed By: #### L IPID, TSH3, CMP, CBC #### [address] Lipid Panelon 07-28-2024 Cholesterol [Mass/Vol] 228 mg/dL High 140-200 [facility] Comment on above: Result Comment: Chol less than 200 mg/dl low risk Chol 201-239 mg/dl borderline risk Chol 240 mg/dl and greater high risk Performed By: #### V [id number], CMP, TSH3, LIPID, CBC, T4F, ESR #### [address] Cholesterol in HDL [Mass/Vol] 96 mg/dL High 23-92 [facility] Comment on above: Result Comment: HDL CHOL ATP-III CLASSIFICATION Cardiovascular Risk HDL > or equal to 60 mg/dL LOW HDL < 40 mg/dL HIGH Performed By: #### V [id number], CMP, TSH3, LIPID, CBC, T4F, ESR #### [facility] [address] [place] [address] [place] Cholesterol.total/Ch olesterol in HDL [Mass ratio] 2.4 {ratio} Normal <5.0 [facility] Comment on above: Performed By: #### V [id number], CMP, TSH3, LIPID, CBC, T4F, ESR #### [facility] [address] LDL Cholesterol,Calculat ed 121 mg/dL High 0-100 [facility] Comment on above: Result Comment: LDL ATP III CLASSIFICATION LDL less than 100 mg/dL Optimal LDL 100-129 mg/dL Near or above optimal LDL 130-159 mg/dL Borderline high LDL 160-189 mg/dL High LDL greater than 189 mg/dL Very high Performed By: #### V [id number], CMP, TSH3, LIPID, CBC, T4F, ESR #### [facility] [address] Triglyceride w/Reflex 57 mg/dL Normal 0-149 [facility] Comment on above: Result Comment: TRIG ATP III CLASSIFICATION TRIG less than 150 mg/dL Normal TRIG 150-199 mg/dL Borderline high TRIG 200-500 mg/dL High TRIG greater than 500 mg/dL Very high Standard traceable to the Center for Disease Conrtrol and Prevention (CDC) test method. Performed By: #### V [id number], CMP, TSH3, LIPID, CBC, T4F, ESR #### [facility] [address] VLDL CHOLESTEROL 11 mg/dL Normal [facility] Comment on above: Performed By: #### V [id number], CMP, TSH3, LIPID, CBC, T4F, ESR #### [facility] [address] [place] [id number] [place] Thyroid Stimulating Hormoneo n 07-28-2024 TSH Qn 6.38 m[IU]/L High 0.45-5.33 [facility] Comment on above: Performed By: #### L IPID, TSH3, CMP, CBC #### [facility] [address] [place] [id number] [place] Vitamin D 25 Hydroxy Totalon 07-28-2024 Vitamin D 25 Hydroxy Total 28.4 ng/mL Low 30-100 [facility] Comment on above: Result Comment: ANJU MIN D STATUS 25(OH)VITAMIN D RANGE (ng/mL) Deficient <20 Insufficient 20 to <30 Sufficient 30 to 100 Reference: Yolanda MF,Nathan WOO, Keshawn FRANCO, et al. Evaluation,treatment, and prevention of vitamin D deficiency; an Endocrine Society clinical practice guideline. JCEM. 2010; 96(7):1911-30. PERFORMED BY: [place] [address] PATHOLOGIST AUTOMATIC DEVELOPER JASIEL HURTADO M.D. Performed By: #### L IPID, TSH3, CMP, CBC #### [address] XR scapula LT*on 05-25-2024 XR scapula LT* [facility] [place] [address] [place] [address] XRay Report Signed Patient: Lavonne Villatoro MR#: [id number] : 1935 Acct:[id number] Age/Sex: 88 / F ADM Date: 05/25/24 Loc: XD Room: Type: [facility] Attending Dr: Suhas Garrett DO Copies to: Suhas Garrett DO Ordering Provider: Suhas Garrett DO Date of Service: 05/25/24 XR/XR shoulder LT min 2V*: M25.519 - Pain in unspecified shoulder ([id number]) XR/XR scapula LT*: M25.519 - Pain in [...] Casandra Gómez M.D.05/25/2024 4:45 PM Dictation Location: [place] [address] Transcribed By: [facility] 05/25/241644 Dictated By: Casandra Gómez MD 05/25/241641 Signed By: 05/25/241644 Normal [facility]STHORACIC ECHO (TTE) COMPLETE [address], [address] [place] [address] TRANSTHORACIC ECHOCARDIOGRAM REPORT Patient Name: LAVONNE VILLATORO Reading Physician: [id number] Shy Wolf MD, 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 Electronical (more content not included)... [facility] US carotid doppler BIon 05-0 US carotid doppler BI [facility] [place] [address] [place] [address] Ultrasound Report Signed Patient: Lavonne Villatoro MR#: [id number] : 1935 Acct:[id number] Age/Sex: 88 / F ADM Date: 10/14/23 Loc: Room: Type: [facility] Attending Dr: Suhas Garrett DO [...] Hola Wynn M.D.10/15/2023 11:47 AM Dictation Location: [place] [address] Tech: Jackie Aguillon Transcribed By: KIRILL 10/15/23 1147 Dictated By: Hola Wynn MD 10/15/23 1145 Signed By: 10/15/23 1147 Normal [facility] Complete Blood Count Auto Di ffon 09-03-2023 Basophils (Bld) [#/Vol] 0.0 10*3/uL Normal 0.0-0.2 [facility] Comment on above: Result Comment: PERF ORMED BY: [place] [address] PATHOLOGIST AUTOMATIC DEVELOPER JODY SOLANO M.D. Performed By: #### L IPID, TSH3, CMP, CBC #### [address] Basophils/100 WBC (Bld) 0.7 % Normal . [facility] Comment on above: Performed By: #### L IPID, TSH3, CMP, CBC #### [address] Eosinophils (Bld) [#/Vol] 0.1 10*3/uL Normal 0.0-0.45 [facility] Comment on above: Performed By: #### L IPID, TSH3, CMP, CBC #### [address] Eosinophils/100 WBC (Bld) 1.6 % Normal . [facility] Comment on above: Performed By: #### L IPID, TSH3, CMP, CBC #### [address] Erythrocyte distribution width (RBC) [Ratio] 14.8 % Normal 11.9-15.3 [facility] Comment on above: Performed By: #### L IPID, TSH3, CMP, CBC #### [address] Hematocrit (Bld) [Volume fraction] 39.9 % Normal 34.0-46.4 [facility] Comment on above: Performed By: #### L IPID, TSH3, CMP, CBC #### [address] Hemoglobin (Bld) [Mass/Vol] 13.2 g/dL Normal 11.8-15.4 [facility] Comment on above: Performed By: #### L IPID, TSH3, CMP, CBC #### [address] Lymphocytes (Bld) [#/Vol] 2.6 10*3/uL Normal 1.00-4.8 [facility] Comment on above: Performed By: #### L IPID, TSH3, CMP, CBC #### [address] Lymphocytes/100 WBC (Bld) 43.5 % Normal . [facility] Comment on above: Performed By: #### L IPID, TSH3, CMP, CBC #### [address] MCH (RBC) [Entitic mass] 33.2 pg Normal 24.7-34.3 [facility] Comment on above: Performed By: #### L IPID, TSH3, CMP, CBC #### [address] MCV (RBC) [Entitic vol] 100.5 fL High 80-100 [facility] Comment on above: Performed By: #### L IPID, TSH3, CMP, CBC #### [address] Mean Corpuscular HGB Conc 33.0 g/dL Normal 32.0-35.0 [facility] Comment on above: Performed By: #### L IPID, TSH3, CMP, CBC #### [address] Monocytes (Bld) [#/Vol] 0.6 10*3/uL Normal 0.0-0.8 [facility] Comment on above: Performed By: #### L IPID, TSH3, CMP, CBC #### [address] Monocytes/100 WBC (Bld) 9.7 % Normal . [facility] Comment on above: Performed By: #### L IPID, TSH3, CMP, CBC #### [address] Neutrophils (Bld) [#/Vol] 2.7 10*3/uL Normal 1.8-7.7 [facility] Comment on above: Performed By: #### L IPID, TSH3, CMP, CBC #### [address] Neutrophils/100 WBC (Bld) 44.5 % Normal . [facility] Comment on above: Performed By: #### L IPID, TSH3, CMP, CBC #### [address] NRBC% 0.2 /100{WBC} Normal 0-0.5 [facility] Comment on above: Performed By: #### L IPID, TSH3, CMP, CBC #### [address] Platelet mean volume (Bld) [Entitic vol] 9.2 fL Normal 6.3-10.7 [facility] Comment on above: Performed By: #### L IPID, TSH3, CMP, CBC #### [place] [address] [place] Platelets (Bld) [#/Vol] 229 10*3/uL Normal 150-450 [facility] Comment on above: Performed By: #### L IPID, TSH3, CMP, CBC #### [address] RBC (Bld) [#/Vol] 3.98 10*6/uL Normal 3.60-5.00 [facility] Comment on above: Performed By: #### L IPID, TSH3, CMP, CBC #### [address] WBC (Bld) [#/Vol] 6.0 10*3/uL Normal 3.8-11.6 [facility] Comment on above: Performed By: #### L IPID, TSH3, CMP, CBC #### [address] Comprehensive Metabolic Pane nory 09-03-2023 Albumin [Mass/Vol] 3.8 g/dL Normal 3.5-5.7 [facility] Comment on above: Performed By: #### L IPID, TSH3, CMP, CBC #### [address] Albumin/Globulin [Mass ratio] 1.7 {ratio} Normal [facility] Comment on above: Performed By: #### L IPID, TSH3, CMP, CBC #### [address] ALP [Catalytic activity/Vol] 72 U/L Normal 34-104 [facility] Comment on above: Performed By: #### L IPID, TSH3, CMP, CBC #### [address] ALT [Catalytic activity/Vol] 43 U/L Normal 7-52 [facility] Comment on above: Performed By: #### L IPID, TSH3, CMP, CBC #### [address] Anion gap [Moles/Vol] 8.9 mmol/L Normal 6.0-15.0 [facility] Comment on above: Performed By: #### L IPID, TSH3, CMP, CBC #### [address] AST [Catalytic activity/Vol] 23 U/L Normal 13-39 [facility] Comment on above: Performed By: #### L IPID, TSH3, CMP, CBC #### [address] Bilirubin [Mass/Vol] 1.2 mg/dL High 0.3-1.0 [facility] Comment on above: Performed By: #### L IPID, TSH3, CMP, CBC #### [address] Calcium [Mass/Vol] 9.5 mg/dL Normal 8.6-10.3 [facility] Comment on above: Performed By: #### L IPID, TSH3, CMP, CBC #### [address] Chloride [Moles/Vol] 107 mmol/L Normal 98-107 [facility] Comment on above: Performed By: #### L IPID, TSH3, CMP, CBC #### [address] CO2 [Moles/Vol] 30.0 mmol/L Normal 21.0-31.0 [facility] Comment on above: Performed By: #### L IPID, TSH3, CMP, CBC #### [address] Creatinine [Mass/Vol] 0.76 mg/dL Normal 0.60-1.20 [facility] Comment on above: Performed By: #### L IPID, TSH3, CMP, CBC #### [place] [address] [place] GFR/1.73 sq M.predicted MDRD (S/P/Bld) [Vol rate/Area] mL/min/{1.73_m2} Normal [facility] [facility] Comment on above: Performed By: #### L IPID, TSH3, CMP, CBC #### [place] [address] [place] Globulin (S) [Mass/Vol] 2.2 g/dL Normal [facility] Comment on above: Performed By: #### L IPID, TSH3, CMP, CBC #### [address] Glucose [Mass/Vol] 79 mg/dL Normal 70-100 [facility] Comment on above: Result Comment: [place] om Glucose Reference Range is dependent on time and content of last meal. Glucose of more than 200 mg/dL in a nonstressed, ambulatory subject supports the diagnosis of Diabetes Mellitus. ADA recommended reference range Performed By: #### L IPID, TSH3, CMP, CBC #### [facility] [address] Potassium [Moles/Vol] 3.9 mmol/L Normal 3.5-5.1 [facility] Comment on above: Performed By: #### L IPID, TSH3, CMP, CBC #### [address] Protein [Mass/Vol] 6.0 g/dL Low 6.4-8.9 [facility] Comment on above: Performed By: #### L IPID, TSH3, CMP, CBC #### [address] Sodium [Moles/Vol] 142 mmol/L Normal 136-145 [facility] Comment on above: Performed By: #### L IPID, TSH3, CMP, CBC #### [address] Urea nitrogen [Mass/Vol] 22 mg/dL Normal 7-25 [facility] Comment on above: Performed By: #### L IPID, TSH3, CMP, CBC #### [address] Lipid Panelon 09-03-2023 Cholesterol [Mass/Vol] 243 mg/dL High 140-200 [facility] Comment on above: Result Comment: Chol less than 200 mg/dl low risk Chol 201-239 mg/dl borderline risk Chol 240 mg/dl and greater high risk Performed By: #### L IPID, TSH3, CMP, CBC #### [address] Cholesterol in HDL [Mass/Vol] 98 mg/dL High 23-92 [facility] Comment on above: Result Comment: HDL CHOL ATP-III CLASSIFICATION Cardiovascular Risk HDL > or equal to 60 mg/dL LOW HDL < 40 mg/dL HIGH Performed By: #### L IPID, TSH3, CMP, CBC #### [facility] [address] Cholesterol.total/Ch olesterol in HDL [Mass ratio] 2.5 {ratio} Normal <5.0 [facility] Comment on above: Performed By: #### L IPID, TSH3, CMP, CBC #### [facility] [address] LDL Cholesterol,Calculat ed 121 mg/dL High 0-100 [facility] Comment on above: Result Comment: LDL ATP III CLASSIFICATION LDL less than 100 mg/dL Optimal LDL 100-129 mg/dL Near or above optimal LDL 130-159 mg/dL Borderline high LDL 160-189 mg/dL High LDL greater than 189 mg/dL Very high Performed By: #### L IPID, TSH3, CMP, CBC #### [address] Triglyceride w/Reflex 122 mg/dL Normal 0-149 [facility] Comment on above: Result Comment: TRIG ATP III CLASSIFICATION TRIG less than 150 mg/dL Normal TRIG 150-199 mg/dL Borderline high TRIG 200-500 mg/dL High TRIG greater than 500 mg/dL Very high Standard traceable to the Center for Disease Conrtrol and Prevention (CDC) test method. Performed By: #### L IPID, TSH3, CMP, CBC #### [address] VLDL CHOLESTEROL 24 mg/dL Normal [facility] Comment on above: Performed By: #### L IPID, TSH3, CMP, CBC #### [address] Thyroid Stimulating Hormoneo n 09-03-2023 TSH Qn 4.01 m[IU]/L Normal 0.45-5.33 The [facility] Comment on above: Result Comment: PERF ORMED BY: [place] [address] PATHOLOGIST AUTOMATIC DEVELOPER JODY SOLANO M.D. Performed By: #### L IPID, TSH3, CMP, CBC #### [facility] [address] Complete Blood Count Auto Di ffon 07-08-2023 Basophils (Bld) [#/Vol] 0.630887479 10*3/uL Normal 0.0-0.2 10*3/uL [facility] Other Basophils/100 WBC (Bld) 0.900 % . % [facility] Other Eosinophils (Bld) [#/Vol] 0.341459483 10*3/uL Normal 0.0-0.45 10*3/uL [facility] Other Eosinophils/100 WBC (Bld) 1.100 % . % [facility] Other Erythrocyte distribution width (RBC) [Ratio] 14.000 % Normal 11.9-15.3 % [facility] Other Hematocrit (Bld) [Volume fraction] 37.700 % Normal 34.0-46.4 % [facility] Other Hemoglobin (Bld) [Mass/Vol] 12.029099 g/dL Normal 11.8-15.4 g/dL [facility] Other Lymphocytes (Bld) [#/Vol] 2.277527342 10*3/uL Normal 1.00-4.8 10*3/uL [facility] Other Lymphocytes/100 WBC (Bld) 35.100 % . % [facility] Other MCH (RBC) [Entitic mass] 33.3000 pg Normal 24.7-34.3 pg [facility] Other MCV (RBC) [Entitic vol] 99.7000 fL Normal 80-100 fL [facility] Other Monocytes (Bld) [#/Vol] 0.246195312 10*3/uL Normal 0.0-0.8 10*3/uL [facility] Other Monocytes/100 WBC (Bld) 10.000 % . % [facility] Other Neutrophils (Bld) [#/Vol] 3.022608255 10*3/uL Normal 1.8-7.7 10*3/uL [facility] Other Neutrophils/100 WBC (Bld) 52.900 % . % [facility] Other Platelet mean volume (Bld) [Entitic vol] 9.9000 fL Normal 6.3-10.7 fL [facility] Other Platelets (Bld) [#/Vol] 224 10*3/uL Normal 150-450 10*3/uL [facility] Other RBC (Bld) [#/Vol] 3.78 10*6/uL Normal 3.60-5.00 [facility] Other WBC (Bld) [#/Vol] 7.366792712 10*3/uL Normal 3.8 -11.6 10*3/uL [facility] Other Complete Blood Count Auto Diff 7.1 10*3/uL Normal 3.8-11.6 10*3/uL [facility] Other Complete Blood Count Auto Diff 33.4 g/dL Normal 32.0-35.0 g/dL [facility] Other Complete Blood Count Auto Diff 0.1 /100{WBC} Normal 0-0.5 /100{WBC} [facility] Other Comprehensive Metabolic Pane nory 07-08-2023 Albumin [Mass/Vol] 3.917684 g/dL Normal 3.5-5.7 g/dL [facility] [employer] Other Albumin/Globulin [Mass ratio] 1.7 {ratio} [facility] Other ALP [Catalytic activity/Vol] 140 U/L High 34-104 U/L [facility] Other ALT [Catalytic activity/Vol] 71 U/L High 7-52 U/L [facility] [employer] Other AST [Catalytic activity/Vol] 20 U/L Normal 13-39 U/L [place] [employer] Other Bilirubin [Mass/Vol] 0.0137316 mg/dL Normal 0.3-1.0 mg /dL [place] [employer] Other Calcium [Mass/Vol] 9.7056945 mg/dL Normal 8.6-10 .3 mg/dL [place] [employer] Other Chloride [Moles/Vol] 107 mmol/L Normal 98-107 mmol/L [facility] [employer] Other CO2 [Moles/Vol] 30.88485759 mmol/L Normal 21.0-3 1.0 mmol/L [place] [employer] Other Creatinine [Mass/Vol] 0.71208419 mg/dL Normal 0.60-1.20 mg/dL [place] [employer] Other GFR/1.73 sq M.predicted MDRD (S/P/Bld) [Vol rate/Area] mL/min/{1.73_m2} [facility] [employer] Other Glucose [Mass/Vol] 89 mg/dL Normal 70-100 mg/dL [facility] [employer] Other Potassium [Moles/Vol] 3.86230508 mmol/L Normal 3.5-5.1 mmol/L [place] [employer] Other Protein [Mass/Vol] 6.686050 g/dL Low 6.4-8.9 g/dL [facility] [employer] Other Sodium [Moles/Vol] 143 mmol/L Normal 136-145 mmol/L [place] [employer] Other Urea nitrogen [Mass/Vol] 21 mg/dL Normal 7-25 mg/dL [facility] Other Comprehensive Metabolic Panel 2.2 g/dL [facility] Other Free T4 (Free Thyroxine)on 0 07-08-2023 Free T4 [Mass/Vol] 1.38825016 ng/dL High 0.61- 1.12 ng/dL [facility] Other Thyroid Antibodies TPO+Tg Ab on 07-08-2023 Thyroid Antibodies TPO+Tg Ab 11 0-34 [facility] Other Thyroid Antibodies TPO+Tg Ab <1.0 0.0-0.9 [facility] Other Thyroid Stimulating Hormoneo n 07-08-2023 TSH Qn 2.50389315461 m[IU]/L Normal 0.45-5 .33 u[iU]/mL [facility] Other Echocardiogramon 02-26-[address], [address] [place] [address] TRANSTHORACIC ECHOCARDIOGRAM REPORT Patient Name: LAVONNE Shruti Physician: [id number] Shy Wolf MD, [facility] Study Date: 02/26/2023 Referring SHY WOLF Physician: MRN/PID: [id number] PCP: Suhas Garrett MD Accession/Order#: [id number] [facility] Location: Date of : 1935 Fellow: Gender: F Nurse: Admit Date: Photostat Operator Helper: Sheridan Lemus [facility] Height: 157.48 cm CC Report to: Weight: 67.13 kg Study Type: Echocardiogram BSA: 1.68 m2 Blood Pressure: 122 /76 mmHg Diagnosis/ICD: I35.0-Nonrheumatic aortic (valve) stenosis; R01.1-Cardiac murmur, unspecified Indication: HTN, Hyperlipidemia, Overweight, Hypothyroid, Polymyalgia Rheumatica Procedure/CPT: Echo Complete w Full [id number] Study Detail: The following Echo studies were [...] mmHg PIEDV: 2.50 m/s PADP: 28.0 mmHg [id number] Shy Wolf MD, [facility] Electronically signed on 03/01/2023 at 2:16:46 PM Final Normal [facility] Office Visit (Cardiology)on 12-24-2022 Follow-up visit Diagnoses/Problems Assessed Aortic stenosis (424.1) (I35.0) Murmur, cardiac (785.2) (R01.1) Essential hypertension (401.9) (I10) Hyperlipidemia (272.4) (E78.5) Overweight with body mass index (BMI) of 27 to 27.9 in adult (278.02,V85.23) (E66.3,Z68.27) Never smoker Hypothyroidism (244.9) (E03.9) PMR (polymyalgia rheumatica) (725) (M35.3) Orders Aortic stenosis, Murmur, cardiac Echocardiogram; Status:Hold For - Scheduling,Retrospect bola Authorization; Requested for:[id number]; Essential hypertension, Hyperlipidemia Changed: From Aspirin EC 81 MG TBEC TAKE 1 TABLET To Aspirin 81 MG Oral Tablet Delayed Release TAKE 1 TABLET DAILY Overweight with body mass index (BMI) of 27 to 27.9 in adult Healthy Weight Tips; Status:Complete - Retrospective Authorization; Done: [id number] Some eating tips that can help you lose weight.; Status:Complete - Retrospective Authorization; Done: [id number] SocHx: Never smoker Tobacco Use Screening; Status:Complete; Done: [id number] Patient Instructions Please bring all medicines, vitamins, [...] is being tapered gradually Shy Wolf MD, [facility] Past Medical History Problems History of [...] Multi Vitamin Oral TabletTAKE 1 TABLET DAILY. Fortun[place]-3 Fish Oil 1000 MG Oral CapsuleTAKE 1 [...] negative for complaint. Vitals Vital Signs Recorded: [id number] 11:32AM Heart Rate68, R Radial Zmvtiiiu063, RUE, Sitting Pdoghwbrw69, RUE, Sitting Height5 ft 2 in Kmtndw865 lb BMI Oshabpeshu07.07 kg/m2 BSA Calculated1.68 Tobacco Useb) No PHQ-2 [...] distress a (more content not included)... Normal [employer] Tobacco Screening.on 023 Adult depression screening assessment No [facility] [employer] 250 DO Work Phone: Fall risk assessment a) No falls within the last year [facility] [employer] 250 DO Work Phone: Tobacco use status CP b) No [facility] [employer] 250 DO Work Phone: Complete Blood Count Auto Di ffon 02-22-2022 Basophils (Bld) [#/Vol] 0.160691614 10*3/uL Normal 0.0-0.2 10*3/uL [facility] Other Basophils/100 WBC (Bld) 0.700 % . % [facility] Other Eosinophils (Bld) [#/Vol] 0.940370638 10*3/uL Normal 0.0-0.45 10*3/uL [facility] Other Eosinophils/100 WBC (Bld) 0.700 % . % [facility] Other Erythrocyte distribution width (RBC) [Ratio] 13.500 % Normal 11.9-15.3 % [facility] Other Hematocrit (Bld) [Volume fraction] 38.400 % Normal 34.0-46.4 % [facility] Other Hemoglobin (Bld) [Mass/Vol] 12.873239 g/dL Normal 11.8-15.4 g/dL [facility] Other Lymphocytes (Bld) [#/Vol] 0.465092877 10*3/uL Low 1.00-4.8 10*3/uL [facility] Other Lymphocytes/100 WBC (Bld) 12.600 % . % [facility] Other MCH (RBC) [Entitic mass] 33.7000 pg Normal 24.7-34.3 pg [facility] Other MCV (RBC) [Entitic vol] 100.4000 fL High 80-100 fL [facility] Other Monocytes (Bld) [#/Vol] 0.093050004 10*3/uL Normal 0.0-0.8 10*3/uL [facility] Other Monocytes/100 WBC (Bld) 6.800 % . % [facility] Other Neutrophils (Bld) [#/Vol] 5.655047019 10*3/uL Normal 1.8-7.7 10*3/uL [facility] Other Neutrophils/100 WBC (Bld) 79.200 % . % [facility] Other Platelet mean volume (Bld) [Entitic vol] 9.4000 fL Normal 6.3-10.7 fL [facility] Other Platelets (Bld) [#/Vol] 223 10*3/uL Normal 150-450 10*3/uL [facility] Other RBC (Bld) [#/Vol] 3.9603328251 10*6/uL Normal 3. 60-5.00 10*6/uL [facility] Other WBC (Bld) [#/Vol] 6.675571062 10*3/uL Normal 3.8 -11.6 10*3/uL [facility] Other Complete Blood Count Auto Diff 6.6 10*3/uL Normal 4.5-11.0 10*3/uL [facility] Other Complete Blood Count Auto Diff 33.6 g/dL Normal 32.0-35.0 g/dL [facility] Other Complete Blood Count Auto Diff 0.1 % Normal 0-0.5 % [facility] Other Erythrocyte Sedimentation Ra amy 02-22-2022 ESR (Bld) [Velocity] 28 mm/h Normal 0-29 [facility] Other VASC LAB Carotid Artery Dupl ex Ultrasoundon 02-21-2022 US.doppler Carotid arteries [facility] [employer] [address] [place] Work Phone: COVID Quick Testingon 2021 Result Positive [facility] Other Falls Screening (Age 18+)on 12-26-2021 Fall risk assessment a) No falls within the last year [facility] [employer] 250 DO Work Phone: Office Visit (Cardiology)on [...] Multi Vitamin Oral TabletTAKE 1 TABLET DAILY. Fortuna 3 500 CAPSTAKE 1 CAPSULE Daily predniSONE 5 MG Oral Dewggj4DT 7.5MG BY MOUTH ONE DAILY ALTERNATING EVERY OTHER DAY Allergies Medication amoxicillin Hives;; Recorded By: Kayla Orr; 10/17/2021 10:50:34 AM Dilantin CAPS Rash; Recorded By: Kayla Orr; 10/17/2021 10:50:34 AM Fosamax eye pain; Recorded By: Kayla Orr; 10/17/2021 10:50:34 AM Depakote ER TB24 Recorded By: Kayla Orr; 10/17/2021 10:50:34 AM Vitals Vital Signs Recorded: [id number] 11:04AMRecorded: 36Zxh4802 11:00AM Heart Rate56, R Vnqvrz85, R Radial Ivwuvxdu522, LUE, Oqafpse268, RUE Pvejnfbui08, LUE, Pnhamyf24, RUE Height5 ft 2 in5 ft 2 in Hdmuiy618 lb 143 lb BMI Eatfmcsiwk03.16 kg/m226.16 kg/m2 BSA Calculated1.661.66 Falls Screening (Age 18+)a) No falls within the last year Signatures Electronically signed by : Shy Wolf MD; Dec 26 2021 4:02PM EST (Author) Normal [employer] Tobacco Screening.on 022 Adult depression screening assessment No [place] [employer] Work Phone: Fall risk assessment a) No falls within the last year [facility] Work Phone: Tobacco use status CPHS b) No [facility] Work Phone: Vital Signs Date Time Vital Sign Value 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 Facility 07-04-2023 11:15-0500 Body height 157.48 cm Suhas Garrett Other [facility] Other 07-04-2023 11:15-0500 Body mass index (BMI) [Ratio] 28.53 kg/m2 Suhas Garrett Other [facility] Other 07-04-2023 11:15-0500 Body weight 70.76 kg Suhas Garrett Other [facility] Other 07-04-2023 11:15-0500 Diastolic blood pressure 84 mm[Hg] Suhas Garrett Other [facility] Other 07-04-2023 11:15-0500 Respiratory rate 20 /min Suhas Garrett Other [facility] Other 07-04-2023 11:15-0500 SaO2% (BldA) [Mass fraction] 99 % Suhas Garrett Other [facility] Other 07-04-2023 11:15-0500 Systolic blood pressure 150 mm[Hg] Suhas Garrett Other [facility] Other 06-19-2023 11:09-0500 Body height 157.5 cm Shy Wolf MD Work Phone: [facility] 06-19-2023 11:09-0500 Body mass index (BMI) [Ratio] 27.98 kg/m2 Shy Wolf MD Work Phone: [facility] 06-19-2023 11:09-0500 Body weight 69.4 kg Shy Wolf MD Work Phone: [facility] 06-19-2023 11:09-0500 Diastolic blood pressure 76 mm[Hg] Shy Wolf MD Work Phone: [facility] 06-19-2023 11:09-0500 Heart rate 60 /min Shy Wolf MD Work Phone: [facility] 06-19-2023 11:09-0500 Systolic blood pressure 120 mm[Hg] Shy Wolf MD Work Phone: [facility] 05-30-2023 11:00-0500 Body height 157.48 cm Suhas Garrett Other [facility] Other 05-30-2023 11:00-0500 Body mass index (BMI) [Ratio] 27.8 kg/m2 Suhas Garrett Other [facility] Other 05-30-2023 11:00-0500 Body weight 68.95 kg Suhas Garrett Other [facility] Other 05-30-2023 11:00-0500 Diastolic blood pressure 80 mm[Hg] Suhas Garrett Other [facility] Other 05-30-2023 11:00-0500 Respiratory rate 18 /min Suhas Garrett Other [facility] Other 05-30-2023 11:00-0500 SaO2% (BldA) [Mass fraction] 96 % Suhas Garrett Other [facility] Other 05-30-2023 11:00-0500 Systolic blood pressure 122 mm[Hg] Suhas Garrett Other [facility] Other 02-28-2023 10:30-0400 Body height 157.48 cm Suhas Garrett Other [facility] Other 02-28-2023 10:30-0400 Body mass index (BMI) [Ratio] 27.98 kg/m2 Suhas Garrett Other [facility] Other 02-28-2023 10:30-0400 Body weight 69.4 kg Suhas Garrett Other [facility] Other 02-28-2023 10:30-0400 Diastolic blood pressure 76 mm[Hg] Suhas Garrett Other [facility] Other 02-28-2023 10:30-0400 Respiratory rate 16 /min Suhas Garrett Other [facility] Other 02-28-2023 10:30-0400 SaO2% (BldA) [Mass fraction] 91 % Suhas Garrett Other [facility] Other 02-28-2023 10:30-0400 Systolic blood pressure 134 mm[Hg] Suhas Garrett Other [facility] Other 12-24-2022 11:32-0400 Body height 157.48 cm Suhas Garrett Work Phone: [employer] 250 DO Work Phone: 12-24-2022 11:32-0400 Body mass index (BMI) [Ratio] 27.07 kg/m2 Suhas Garrett Work Phone: [facility] 250 DO Work Phone: 12-24-2022 11:32-0400 Body surface area Derived from formula 1.68 m2 Suhas Garrett Work Phone: [facility] 250 DO Work Phone: 12-24-2022 11:32-0400 Body weight 67.13 kg Suhas Garrett Work Phone: [facility] 250 DO Work Phone: 12-24-2022 11:32-0400 Diastolic blood pressure 76 mm[Hg] Suhas Garrett Work Phone: [facility] 250 DO Work Phone: 12-24-2022 11:32-0400 Heart rate 68 /min Suhas Garrett Work Phone: [facility] 250 DO Work Phone: 12-24-2022 11:32-0400 Systolic blood pressure 118 mm[Hg] Suhas Garrett Work Phone: [facility] 250 DO Work Phone: 12-06-2022 10:30-0400 Body height 157.48 cm Suhas Garrett Other [employer] [facility] [employer] Other 12-06-2022 10:30-0400 Body mass index (BMI) [Ratio] 27.98 kg/m2 Suhas Garrett Other [facility] Other 12-06-2022 10:30-0400 Body weight 69.4 kg Suhas Garrett Other [facility] Other 12-06-2022 10:30-0400 Diastolic blood pressure 70 mm[Hg] Suhas Garrett Other [facility] Other 12-06-2022 10:30-0400 Respiratory rate 16 /min Suhasraquel Mayoadan Other [facility] Other 12-06-2022 10:30-0400 SaO2% (BldA) [Mass fraction] 98 % Suhas Garrett Other [facility] Other 12-06-2022 10:30-0400 Systolic blood pressure 146 mm[Hg] Suhas Garrett Other [facility] Other 09-20-2022 11:45-0400 Body height 157.48 cm Suhas Garrett Other [facility] Other 09-20-2022 11:45-0400 Body mass index (BMI) [Ratio] 26.34 kg/m2 Suhas Ugo Other [facility] Other 09-20-2022 11:45-0400 Body weight 65.32 kg Suhas Ugo Other [facility] Other 09-20-2022 11:45-0400 Diastolic blood pressure 70 mm[Hg] Suhas Garrett Other [facility] Other 09-20-2022 11:45-0400 Respiratory rate 16 /min Suhas Garrett Other [facility] Other 09-20-2022 11:45-0400 SaO2% (BldA) [Mass fraction] 98 % Suhas Garrett Other [facility] Other 09-20-2022 11:45-0400 Systolic blood pressure 130 mm[Hg] Suhas Garrett Other [facility] Other 07-22-2022 11:30-0500 Body height 157.48 cm Suhas Garrett Other [facility] Other 07-22-2022 11:30-0500 Body mass index (BMI) [Ratio] 26.85 kg/m2 Suhas Garrett Other [facility] Other 07-22-2022 11:30-0500 Body weight 66.59 kg Suhas Garrett Other [facility] Other 07-22-2022 11:30-0500 Diastolic blood pressure 70 mm[Hg] Suhas Garrett Other [facility] Other 07-22-2022 11:30-0500 Respiratory rate 16 /min Suhas Garrett Other [facility] Other 07-22-2022 11:30-0500 SaO2% (BldA) [Mass fraction] 98 % Suhas Garrett Other [facility] Other 07-22-2022 11:30-0500 Systolic blood pressure 122 mm[Hg] Suhas Garrett Other [facility] Other 04-17-2022 11:45-0500 Body height 157.48 cm Suhas Garrett Other [facility] Other 04-17-2022 11:45-0500 Body mass index (BMI) [Ratio] 26.88 kg/m2 Suhas Garrett Other [facility] Other 04-17-2022 11:45-0500 Body weight 66.68 kg Suhas Garrett Other [facility] Other 04-17-2022 11:45-0500 Diastolic blood pressure 72 mm[Hg] Suhas Garrett Other [facility] Other 04-17-2022 11:45-0500 Respiratory rate 16 /min Suhas Garrett Other [facility] Other 04-17-2022 11:45-0500 SaO2% (BldA) [Mass fraction] 99 % Suhas Garrett Other [facility] Other 04-17-2022 11:45-0500 Systolic blood pressure 138 mm[Hg] Suhas Garrett Other [facility] Other 02-22-2022 10:15-0400 Body height 157.48 cm Suhas Garrett Other [facility] Other 02-22-2022 10:15-0400 Body mass index (BMI) [Ratio] 27.07 kg/m2 Suhas Garrett Other [facility] Other 02-22-2022 10:15-0400 Body weight 67.13 kg Suhas Garrett Other [facility] Other 02-22-2022 10:15-0400 Diastolic blood pressure 70 mm[Hg] Suhas Garrett Other [facility] Other 02-22-2022 10:15-0400 Respiratory rate 16 /min Suhas Garrett Other [facility] Other 02-22-2022 10:15-0400 SaO2% (BldA) [Mass fraction] 97 % Suhas Garrett Other [facility] Other 02-22-2022 10:15-0400 Systolic blood pressure 122 mm[Hg] Suhas Garrett Other [facility] Other 02-21-2022 10:45-0400 70 1 Suhas Garrett Work Phone: [facility] [address] [place] Work Phone: Comment on above: [id number] 02-14-2022 15:45-0400 Body height 157.48 cm Suhas Garrett Other [facility] Other 02-14-2022 15:45-0400 Body mass index (BMI) [Ratio] 26.7 kg/m2 Suhas Garrett Other [facility] Other 02-14-2022 15:45-0400 Body weight 66.23 kg Suhas Garrett Other [facility] Other 02-14-2022 15:45-0400 Diastolic blood pressure 72 mm[Hg] Suhas Garrett Other [facility] Other 02-14-2022 15:45-0400 Respiratory rate 16 /min Suhas Garrett Other [facility] Other 02-14-2022 15:45-0400 SaO2% (BldA) [Mass fraction] 96 % Suhas Garrett Other [facility] Other 02-14-2022 15:45-0400 Systolic blood pressure 132 mm[Hg] Suhas Garrett Other [facility] Other 12-26-2021 11:04-0400 Body height 157.48 cm Suhas Garrett Work Phone: [facility] 250 DO Work Phone: 12-26-2021 11:04-0400 Body mass index (BMI) [Ratio] 26.16 kg/m2 Suhas Garrett Work Phone: [facility] 250 DO Work Phone: 12-26-2021 11:04-0400 Body surface area Derived from formula 1.66 m2 Suhas Garrett Work Phone: [facility] 250 DO Work Phone: 12-26-2021 11:04-0400 Body weight 64.86 kg Suhas Garrett Work Phone: [facility] 250 DO Work Phone: 12-26-2021 11:04-0400 Diastolic blood pressure 68 mm[Hg] Suhas Garrett Work Phone: [facility] 250 DO Work Phone: 12-26-2021 11:04-0400 Heart rate 56 /min Suhas Garrett Work Phone: [facility] 250 DO Work Phone: 12-26-2021 11:04-0400 Systolic blood pressure 126 mm[Hg] Suhas Garrett Work Phone: [facility] 250 DO Work Phone: 12-26-2021 11:00-0400 Diastolic blood pressure 70 mm[Hg] Suhas Mayos Work Phone: [facility] 250 DO Work Phone: 12-26-2021 11:00-0400 Systolic blood pressure 130 mm[Hg] Suhas Garrett Work Phone: [facility] 250 DO Work Phone: 12-13-2021 11:39-0400 Diastolic blood pressure 80 mm[Hg] Suhas Garrett Work Phone: [facility] Work Phone: 12-13-2021 11:39-0400 Systolic blood pressure 170 mm[Hg] Suhas Garrett Work Phone: [facility] Work Phone: 12-13-2021 11:22-0400 Diastolic blood pressure 80 mm[Hg] Suhas Garrett Work Phone: [facility] Work Phone: 12-13-2021 11:22-0400 Systolic blood pressure 158 mm[Hg] Suhas Mayoadan Work Phone: [facility] Work Phone: 12-13-2021 11:17-0400 Body height 157.48 cm Suhas Hoffman Ugo Work Phone: [facility] Work Phone: 12-13-2021 11:17-0400 Body mass index (BMI) [Ratio] 26.52 kg/m2 Suhas Garrett Work Phone: [facility] Work Phone: 12-13-2021 11:17-0400 Body surface area Derived from formula 1.67 m2 Suhas Garrett Work Phone: [facility] Work Phone: 12-13-2021 11:17-0400 Body weight 65.77 kg Suhas Garrett Work Phone: [facility] Work Phone: 12-13-2021 11:17-0400 Diastolic blood pressure 80 mm[Hg] Suhas Garrett Work Phone: [facility] Work Phone: 12-13-2021 11:17-0400 Heart rate 60 /min Suhas Garrett Work Phone: [facility] Work Phone: 12-13-2021 11:17-0400 Systolic blood pressure 160 mm[Hg] Suhas Garrett Work Phone: [facility] Work Phone: 10-01-2021 13:30-0400 Body height 157.48 cm Suhas Garrett Other [facility] Other 10-01-2021 13:30-0400 Body mass index (BMI) [Ratio] 26.34 kg/m2 Suhas Garrett Other [facility] Other 10-01-2021 13:30-0400 Body weight 65.32 kg Suhas Garrett Other [facility] Other 10-01-2021 13:30-0400 Diastolic blood pressure 72 mm[Hg] Suhas Garrett Other [facility] Other 10-01-2021 13:30-0400 Respiratory rate 18 /min Suhas Garrett Other [facility] Other 10-01-2021 13:30-0400 SaO2% (BldA) [Mass fraction] 99 % Suhas Garrett Other [facility] Other 10-01-2021 13:30-0400 Systolic blood pressure 130 mm[Hg] Suhas Garrett Other [facility] Other 08-02-2021 13:30-0500 Body height 157.48 cm Suhas Garrett Other [facility] Other 08-02-2021 13:30-0500 Body mass index (BMI) [Ratio] 26.52 kg/m2 Suhasraquel Mayoadan Other [facility] Other 08-02-2021 13:30-0500 Body weight 65.77 kg Suhasraquel Garrett Other [facility] Other 08-02-2021 13:30-0500 Diastolic blood pressure 70 mm[Hg] Suhas Garrett Other [facility] Other 08-02-2021 13:30-0500 Respiratory rate 16 /min Suhas Garrett Other [facility] Other 08-02-2021 13:30-0500 SaO2% (BldA) [Mass fraction] 99 % Suhas Gaeladan Other [facility] Other 08-02-2021 13:30-0500 Systolic blood pressure 118 mm[Hg] Suhas Garrett Other [facility] Other 04-26-2021 13:30-0500 Body height 157.48 cm Suhas Ugo Other [facility] Other 04-26-2021 13:30-0500 Body mass index (BMI) [Ratio] 25.97 kg/m2 Suhas Ugo Other [facility] Other 04-26-2021 13:30-0500 Body weight 64.41 kg Suhas Garrett Other [facility] Other 04-26-2021 13:30-0500 Diastolic blood pressure 74 mm[Hg] Suhas Garrett Other [facility] Other 04-26-2021 13:30-0500 Respiratory rate 17 /min Suhas Garrett Other [facility] Other 04-26-2021 13:30-0500 SaO2% (BldA) [Mass fraction] 98 % Suhas Ugo Other [facility] Other 04-26-2021 13:30-0500 Systolic blood pressure 120 mm[Hg] Suhas Garrett Other [facility] Other Encounters Encounter Date Encounter Type Care Provider Facility Start: 07-28-2024 End: 07-28-2024 ambulatory Suhas Garrett Facility:[facility] Start: 05-25-2024 End: 05-25-2024 ambulatory Suhas Garrett Facility:[facility] Start: 04-16-2024 End: 04-16-2024 ambulatory [facility] Start: 02-23-2024 End: 02-23-2024 ambulatory Gloria Weston MD Facility:[facility] Start: 02-11-2024 End: 02-11-2024 ambulatory [facility] Start: 11-24-2023 End: 11-24-2023 ambulatory Gloria Weston MD Facility:[facility] Start: 11-17-2023 End: 11-17-2023 ambulatory Gloria Weston MD Facility:[facility] Start: 10-20-2023 End: 10-20-2023 ambulatory Gloria Weston MD Facility:[facility] Start: 10-14-2023 End: 10-14-2023 ambulatory Suhas Garrett Facility:[facility] Start: 09-29-2023 End: 09-29-2023 ambulatory Gloria Weston MD Facility:[facility] Start: 09-08-2023 End: 09-08-2023 ambulatory Andshabana Weston MD Facility:[facility] Start: 09-03-2023 End: 09-03-2023 ambulatory Suhas Garrett Facility:[facility] Start: 08-25-2023 End: 08-25-2023 ambulatory Gloria Weston MD Facility: [facility] Start: 07-18-2023 End: 07-18-2023 ambulatory Suhas Garrett Other [facility] Other Start: 07-18-2023 Telephone encounter Suhas Ugo [facility] Start: 07-15-2023 End: 07-15-2023 ambulatory Suhas Garrett Other [facility] Other Start: 07-15-2023 Telephone encounter Suhas Ugo [facility] Start: 07-10-2023 End: 07-10-2023 ambulatory Suhas Garrett Other [facility] Other Start: 07-10-2023 Telephone encounter Suhasraquel Garrett [facility] Start: 07-07-2023 End: 07-07-2023 ambulatory Suhasraquel Garrett Other [facility] Other Start: 07-07-2023 Telephone encounter Suhasraquel Mayoadan [facility] Start: 07-04-2023 End: 07-04-2023 ambulatory Suhas Gaeladan Other [facility] Other Start: 07-04-2023 Office outpatient vi sit 15 minutes Suhas Garrett [facility] Start: 06-19-2023 Telephone encounter Suhasraquel Garrett [facility] Start: 06-19-2023 End: 06-19-2023 Office outpatient visit 25 minutes Shy Wolf MD Work Phone: [facility] Comment on above: Aortic valve stenosi s, etiology of cardiac valve disease unspecified; Essential hypertension; Hyperlipidemia, unspecified hyperlipidemia type; Never smoked any substance Start: 06-19-2023 End: 06-19-2023 ambulatory SHY WOLF [facility] Other Start: 05-30-2023 End: 05-30-2023 ambulatory Suhas Garrett Other [facility] Other Start: 05-30-2023 Office outpatient vi sit 25 minutes Suhas Garrett [facility] Start: 05-28-2023 End: 05-28-2023 ambulatory Suhas Garrett Other [facility] Other Start: 05-28-2023 Telephone encounter Suhas Garrett [facility] Start: 04-23-2023 End: 04-23-2023 ambulatory Suhas Garrett Other [facility] Other Start: 04-23-2023 Telephone encounter Suhas Garrett [facility] Start: 04-18-2023 End: 04-18-2023 ambulatory Suhas Garrett Other [facility] Other Start: 04-18-2023 Telephone encounter Suhas Garrett [facility] Start: 03-02-2023 Chart Update Suhas Garrett Work Phone: [place] [address] DO Work Phone: Start: 02-28-2023 End: 02-28-2023 ambulatory Suhas Garrett Other [facility] Other Start: 02-28-2023 Office outpatient vi sit 15 minutes Suhas Garrett [facility] Start: 02-26-[address] Suhas Garrett Facility:[id number] Start: 01-27-2023 End: 01-27-2023 ambulatory Suhas Garrett Other [facility] Other Start: 01-27-2023 Telephone encounter Suhas Garrett [facility] Start: 12-24-2022 Office outpatient vi sit 25 minutes Suhas Garrett Work Phone: [facility] [address] DO Work Phone: Start: 12-24-[address] Shy Wolf Facility: Start: 12-06-2022 End: 12-06-2022 ambulatory Suhas Garrett Other [facility] Other Start: 12-06-2022 Office outpatient vi sit 15 minutes Suhas Garrett [facility] Start: 09-20-2022 End: 09-20-2022 ambulatory Suhas Garrett Other [facility] Other Start: 09-20-2022 Office outpatient vi sit 15 minutes Suhas Garrett [facility] Start: 08-14-2022 End: 08-14-2022 ambulatory Suhas Garrett Other [facility] Other Start: 08-14-2022 Telephone encounter Suhas Garrett [facility] Start: 07-22-2022 End: 07-22-2022 ambulatory Suhas Garrett Other [facility] Other Start: 07-22-2022 Office outpatient vi sit 15 minutes Suhas Mayos [facility] Start: 04-17-2022 End: 04-17-2022 ambulatory Suhas Garrett Other [facility] Other Start: 04-17-2022 Office outpatient vi sit 15 minutes Suhas Mayos [facility] Start: 04-10-2022 End: 04-10-2022 ambulatory Suhas Garrett Other [facility] Other Start: 04-10-2022 Telephone encounter Suhas Ugo [facility] Start: 04-03-2022 End: 04-03-2022 ambulatory Suhas Garrett Other [facility] Other Start: 04-03-2022 Telephone encounter Suhas Garrett [facility] Start: 04-02-2022 End: 04-02-2022 ambulatory Suhas Garrett Other [facility] Other Start: 04-02-2022 Telephone encounter Suhas Garrett [facility] Start: 02-26-2022 End: 02-26-2022 ambulatory Suhas Garrett Other [facility] Other Start: 02-26-2022 Telephone encounter Suhas Garrett [facility] Start: 02-25-2022 End: 02-25-2022 ambulatory Suhas Garrett Other [facility] Other Start: 02-25-2022 Telephone encounter Suhas Garrett [facility] Start: 02-22-2022 End: 02-22-2022 ambulatory Suhas Garrett Other [facility] Other Start: 02-22-2022 Office outpatient vi sit 25 minutes Suhas Garrett [facility] Start: 02-21-2022 Patient encounter procedure Suhas Garrett Work Phone: [facility] [address] [place] Work Phone: Start: 02-20-2022 End: 02-21-2022 ambulatory MAYO CARBAJAL Facility: Start: 02-14-2022 End: 02-14-2022 ambulatory Suhas Garrett Other [facility] Other Start: 02-14-2022 Office outpatient vi sit 25 minutes Suhas Garrett [facility] [place] Start: 01-11-2022 End: 01-11-2022 ambulatory Suhas Garrett Other [facility] Other Start: 01-11-2022 Nursing evaluation o f patient and report Suhas Garrett [facility] [place] Start: 01-11-2022 Telephone encounter Suhas Garrett [facility] [place] Start: 12-26-2021 Office outpatient vi sit 10 minutes Suhas Garrett Work Phone: [facility] [address] DO Work Phone: Start: 12-26-[address] Suhas Garrett Facility: Start: 12-20-2021 End: 12-20-2021 ambulatory Suhas Garrett Other [facility] Other Start: 12-20-2021 Telephone encounter Suhas Garrett [facility] Start: 12-13-2021 Office outpatient vi sit 25 minutes Suhas Garrett Work Phone: [facility] Work Phone: Start: 11-02-2021 End: 11-02-2021 ambulatory Suhas Garrett Other [facility] Other Start: 11-02-2021 Telephone encounter Suhas Garrett [facility] [place] Start: 10-01-2021 End: 10-01-2021 ambulatory Suhas Garrett Other [facility] Other Start: 10-01-2021 Office outpatient vi sit 15 minutes Suhas Garrett [facility] [place] Start: 09-10-2021 End: 09-10-2021 ambulatory Suhas Garrett Other [facility] Other Start: 09-10-2021 Telephone encounter Suhas Garrett [facility] [place] Start: 08-20-2021 End: 08-20-2021 ambulatory Suhas Garrett Other [facility] Other Start: 08-20-2021 Telephone encounter Suhas Garrett [facility] Start: 08-02-2021 End: 08-02-2021 ambulatory Suhas Garrett Other [facility] Other Start: 08-02-2021 Office outpatient vi sit 15 minutes Suhas Garrett [facility] Start: 07-25-2021 End: 07-25-2021 ambulatory Suhas Garrett Other [facility] Other Start: 07-25-2021 Telephone encounter Suhas Garrett [facility] Start: 05-08-2021 End: 05-08-2021 ambulatory Suhas Garrett Other [facility] Other Start: 05-08-2021 Telephone encounter Suhas Garrett [facility] Start: 04-26-2021 End: 04-26-2021 ambulatory Suhas Garrett Other [facility] Other Start: 04-26-2021 Office outpatient vi sit 25 minutes Suhas Garrett [facility] Procedures Date Procedure Procedure Detail 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 [...] DTaP/Tdap/Td Vaccines (2 - Td or Tdap) [facility] Start: 03-16-2024 End: 03-16-2024 Patient encounter procedure 03/16/2024 11:20 AM EDT Office Visit [facility] [address] [place] [address] Shy Wolf MD [address] [place] [address] [facility] Start: 02-11-2024 End: 02-11-2024 Patient encounter procedure 02/11/2024 12:30 PM EDT Appointment [facility] [address] [place] [address] [facility] Start: 02-08-2024 End: 06-19-2025 [facility] Transthoracic Transthoracic Echo (TTE) Complete Echocardiography Routine Aortic valve stenosis, etiology of cardiac valve disease unspecified Expected: 02/08/2024 (Approximate), Expires: 06/19/2025 [facility] Service Area Work Phone: Comment on above: Expected: 02/08/2024 (Approximate), Expires: 06/19/2025 Start: 06-19-2023 FUV, Provider: Shy Wolf, Status: Pen, Time: 11:00 AM FUV, Provider: Shy Wolf, Status: Pen, Time: 11:00 AM [facility] Work Phone: Start: 05-28-2023 COVID-19 Vaccine (5 - Moderna series) COVID-19 Vaccine (5 - Moderna series) [facility] Start: 02-26-2023 ECHO, Provider: SAMUEL HHVI ULTRASOUND , Status: Pen, Time: 10:45 AM ECHO, Provider: SAMUEL YII ULTRASOUND , Status: Pen, Time: 10:45 AM [facility] [address] DO Work Phone: Start: 12-24-2022 FUV, Provider: Shy Wolf, Status: Pen, Time: 11:20 AM FUV, Provider: Shy Wolf, Status: Pen, Time: 11:20 AM [facility] Work Phone: Start: 02-21-2022 CAROTID, Provider: SAMUEL [facility]VI ULTRASOUND 01,[id number], Status: Pen, Time: 12:30 PM CAROTID, Provider: SAMUEL [facility] ULTRASOUND 01,[id number], Status: Pen, Time: 12:30 PM [facility] Work Phone: Start: 02-21-2022 ECHO, Provider: SAMUEL [facility]TRASOUND 01,[id number], Status: Pen, Time: 10:45 AM ECHO, Provider: SAMUEL HHVI ULTRASOUND 01,[id number], Status: Pen, Time: 10:45 AM [facility] Work Phone: Start: 01-17-2022 CAROTID, Provider: SAMUEL [facility]VI ULTRASOUND 01,[id number], Status: Pen, Time: 2:30 PM CAROTID, Provider: SAMUEL HHVI ULTRASOUND 01,[id number], Status: Pen, Time: 2:30 PM [facility] Work Phone: Start: 01-17-2022 ECHO, Provider: SAMUEL HHVI ULTRASOUND 01,[id number], Status: Pen, Time: 1:30 PM ECHO, Provider: SAMUEL HHVI ULTRASOUND 01,[id number], Status: Pen, Time: 1:30 PM [facility] Work Phone: Start: 12-26-2021 NURSEVST, Provider: MAGDA DANIEL CAUSTIC PREPARER 1,[id number], Status: Pen, Time: 11:00 AM [facility], Provider: MAGDA DANIEL CAUSTIC PREPARER 1,[id number], Status: Pen, Time: 11:00 AM [facility] Work Phone: Start: 1935 Lipid panel Lipid Panel [facility] Start: 1935 Medicare Annual Wellness Visit Medicare Annual Wellness Visit (AWV) [facility] Start: 1935 Thyroid stimulating hormone measurement TSH Level [facility] Immunizations Immunization Date Immunization Notes Care Provider Raciel camacho 04-17-2022 Moderna COVID-19 Bivalent 50 MCG/0.5ML Intramuscular Suspension Suhas Garrett Work Phone: [facility] [address] DO Work Phone: 03-21-2022 Fluad Quadrivalent 0 .5 ML Intramuscular Prefilled Syringe Suhas Garrett [facility] Work Phone: 03-21-2022 influenza, seasonal, injectable Suhas Garrett Other [facility] Other 11-14-2021 Moderna COVID-19 Vaccine 100 MCG/0.5ML Intramuscular Suspension Suhas Garrett Work Phone: [facility] Work Phone: 04-05-2021 Moderna COVID-19 Vaccine 100 MCG/0.5ML Intramuscular Suspension Suhas P Ugo Work Phone: [facility] Work Phone: 03-19-2021 influenza, seasonal, injectable Suhsa Garrett Other [facility] Other 08-08-2020 Moderna COVID-19 Vaccine 100 MCG/0.5ML Intramuscular Suspension Suhas P gUo Work Phone: [facility] Work Phone: 07-11-2020 Moderna COVID-19 Vaccine 100 MCG/0.5ML Intramuscular Suspension Suhas P Gaels Work Phone: [facility] Work Phone: 04-28-2020 pneumococcal polysaccharide vaccine, 23 valent Suhas Garrett Other [facility] Other 03-06-2020 Seasonal trivalent influenza vaccine, adjuvanted, preservative free Suhas P Gaels Work Phone: [facility] Work Phone: 03-06-2020 influenza, seasonal, injectable Suhasraquel Mayos Other [facility] Other 02-08-2020 influenza virus vaccine, unspecified formulation Suhas P Kuns Work Phone: [facility] Work Phone: 02-08-2020 influenza, seasonal, injectable Suhas Kuns Other [facility] Other 05-04-2019 zoster vaccine recombinant Suhas Mayos Other [facility] Other 03-09-2019 influenza, high dose seasonal, preservative-free Suhas P Kuns Work Phone: [facility] Work Phone: 03-04-2019 influenza, seasonal, injectable Suhas Mayos Other [facility] Other 02-04-2019 zoster vaccine recombinant Suhas Mayos Other [facility] Other 05-12-2018 tetanus toxoid, redu bety diphtheria toxoid, and acellular pertussis vaccine, adsorbed Suhas Mayos Other [facility] Other 03-16-2018 Seasonal trivalent influenza vaccine, adjuvanted, preservative free Shy Wolf MD Work Phone: [facility] Work Phone: 03-09-2018 influenza virus vaccine, unspecified formulation Suhas P Kuns Work Phone: [facility] Work Phone: 04-09-2017 influenza virus vaccine, unspecified formulation Suhas P Kuns Work Phone: [facility] Work Phone: 03-28-2017 Seasonal trivalent influenza vaccine, adjuvanted, preservative free Suhas P Ugo Work Phone: [facility] Work Phone: 05-23-2016 pneumococcal conjuga te vaccine, 13 valent Suhas Kuns Other [facility] [employer] Other 04-01-2016 Seasonal trivalent influenza vaccine, adjuvanted, preservative free Suhas P Gaels Work Phone: [facility] Work Phone: 03-09-2016 influenza virus vaccine, unspecified formulation Suhas Dalton Garrett Work Phone: [facility] Work Phone: 03-09-2016 pneumococcal conjuga te vaccine, 13 valent Suhas P Kuns Work Phone: [facility] Work Phone: 04-07-2015 influenza, injectabl e, quadrivalent, contains preservative Suhas P Ugo Work Phone: [facility] Work Phone: 03-09-2015 influenza virus vaccine, unspecified formulation Suhas P Ugo Work Phone: [facility] Work Phone: 04-05-2014 influenza, seasonal, injectable, preservative free Suhas P Gaels Work Phone: [facility] Work Phone: 03-09-2014 influenza virus vaccine, whole virus Suhas Garrett Work Phone: [facility] Work Phone: 03-23-2013 influenza, seasonal, injectable Suhas P Gales Work Phone: [facility] Work Phone: 03-09-2013 influenza virus vaccine, unspecified formulation Suhas P Ugo Work Phone: [facility] Work Phone: 04-14-2012 influenza, injectabl e, quadrivalent, contains preservative Suhas Garrett Other [facility] [employer] Other 06-09-2011 influenza virus vaccine, unspecified formulation Suhas Garrett Work Phone: [facility] Work Phone: 06-09-2010 influenza virus vaccine, unspecified formulation Suhas Garrett Work Phone: [facility] Work Phone: 06-09-2009 influenza virus vaccine, unspecified formulation Suhas Garrett Work Phone: [facility] Work Phone: 05-30-2009 novel [id number], preservative-free, injectable Suhas Garrett Work Phone: [facility] Work Phone: 10-19-2007 varicella virus vaccine Belkys Garrett Work Phone: [facility] Work Phone: 06-09-2006 pneumococcal polysaccharide vaccine, 23 valent Suhas Garrett Work Phone: [facility] Work Phone: Payers Date Payer Category Payer Self-pay 2022 Private Health Insurance [id number] 2001 Medicare MEDICARE MEDICAR E RAILROAD [id number] 2001-Present [address] [place] [address] [id number] 2001 Unknown 1959 Medicare [id number] 1959 Private Health Insurance [id number] 1936 Unknown [id number] .593 1936 Unknown [id number] [id number] .356 1936 Unknown [id number] [id number] .356 1936 Unknown [id number] [id number] .1068 1936 Unknown [id number] [id number] .1246 1936 Unknown [id number] 2.840.1.228648.3.579.2 .196 1936 Unknown [id number] 2.840.1.869940.3.579.2 .196 1936 Unknown [id number] 2.840.1.079845.3.579.2 .196 1936 Unknown [id number] 2.840.1.985521.3.579.2 .196 1936 Unknown [id number] 2.840.1.558301.3.579.2 .196 1936 Unknown [id number] 2.840.1.174498.3.579.2 .196 1936 Unknown [id number] 2.840.1.951130.3.579.2 .196 1936 Unknown [id number] [id number] .1244 1936 Unknown [id number] [id number] .1244 Unknown [id number] 2.16.840.1.447981.3.579.2 .531 Unknown [id number] 2.16.840.1.655393.3.579.2 .531 Unknown [id number] [id number] .531 Unknown [id number] [id number] .531 Social History Date Type Detail Facility Unknown if ever smoked [facility] Other Start: 06-19-2023 Sex Assigned At [facility] [employer] Other Start: 06-19-2023 Caffeine use Caffeine use [facility] Work Phone: Start: 06-19-2023 Tobacco smoking status NHIS Never smoked tobacco [facility] Work Phone: Start: 06-19-2023 Tobacco use and exposure Smokeless tobacco non-user [facility] Work Phone: Start: 1935 [facility]: Start: 06-09-2023 End: 06-19-2023 Exposure to SARS-CoV-2 (event) Not sure [facility] Clinical Notes 02-15-2015 to 07-18-2023 Note Date & Type Note Facility 07-18-2023 Evaluation note Encounter Date Diagnosis Assessment Notes Jul, PMR (polymya lgia rheumati ca) (ICD-10 - M35.3) [facility] Other 02-06-2024 Evaluation note* Encounter Date Diagnosis Assessment Notes Treatment Notes Treatment Clinical Notes Jul, PMR (polymyalgia rheumatica) (ICD-10 - M35.3) [facility] Other 02-01-2024 Evaluation note* Encounter Date Diagnosis Assessment Notes Treatment Notes Treatment Clinical Notes Jul, Hypothyroidism (ICD-10 - E03.9) [facility] Other 01-29-2024 Evaluation note* Encounter Date Diagnosis Assessment Notes Treatment Notes Treatment Clinical Notes Jun, Hypothyroidism (ICD- 10 - E03.9) Jun, Hyperthyroidism (ICD-10 - E05.90) [facility] Other 01-26-2024 Evaluation note* Encounter Date Diagnosis [...] medications in combination with eachother. Also discussed exterminator termite steriod use in regards to her condition. [...] requires sooner she is welcome to call. [facility] Other 01-11-2024 Evaluation note* Encounter Date Diagnosis Assessment Notes Treatment Notes Treatment Clinical Notes Jun, PMR (polymyalgia rheumatica) (ICD-10 - M35.3) [facility] Other 01-11-2024 History of Present illness Narrative* [...] is being tapered gradually Shy Wolf MD, [facility] Review of Systems All other systems [...] of Shy Wolf MD. [facility] Work Phone: [phone]) 686-962501-11-2024 Instructions* Patient Instructions* Yevgeniy Cortez MA - [...] time of your visit. [facility] Work Phone: [phone]) 797-369412-22-2023 Evaluation note* Encounter Date Diagnosis Assessment Notes [...] recommend the patient get the RSV vaccine. [facility] Other 12-20-2023 Evaluation note* Encounter Date Diagnosis Assessment Notes Treatment Notes Treatment Clinical Notes May, Hypertension (ICD-10 - I10) May, Hypothyroidism (ICD-10 - E03.9) [facility] Other 11-10-2023 Evaluation note* Encounter Date Diagnosis Assessment Notes Treatment Notes Treatment Clinical Notes Apr, PMR (polymyalgia rheumatica) (ICD-10 - M35.3) [facility] Other 09-22-2023 Evaluation note* Encounter Date Diagnosis Assessment Notes Treatment Notes Treatment Clinical Notes Feb, PMR (polymyalgia rheumatica) (ICD-10 - M35.3) She was encouraged to take 2.5mg daily. Patient is agreeable. Feb, Hypertension (ICD-10 - I10) Blood pressure is satisfactory, she is to follow with cardiology as scheduled. [facility] Other 08-21-2023 Evaluation note* Encounter Date Diagnosis Assessment Notes Treatment Notes Treatment Clinical Notes Jan, Hypertension (ICD-10 - I10) [facility] Other 06-30-2023 Evaluation note* Encounter Date Diagnosis [...] would like to do. Patient is agreeable. [facility] Other 04-14-2023 Evaluation note* Encounter Date Diagnosis [...] tablets daily. We will continue to monitor. [facility] Other 03-08-2023 Evaluation note* Encounter Date Diagnosis Assessment Notes Treatment Notes Treatment Clinical Notes Aug, PMR (polymyalgia rheumatica) (ICD-10 - M35.3) [facility] Other 02-13-2023 Evaluation note* Encounter Date Diagnosis [...] states she has an upcoming appointment with fence maker and she will discuss making medication changes at that time. [facility] Other 11-09-2022 Evaluation note* Encounter Date Diagnosis [...] can cut Apr, Hyperlipidemia (ICD-10 - E78.5) [facility] Other 11-02-2022 Evaluation note* Encounter Date Diagnosis Assessment Notes Treatment Notes Treatment Clinical Notes Apr, PMR (polymyalgia rheumatica) (ICD-10 - M35.3) [facility] Other 10-26-2022 Evaluation note* Encounter Date Diagnosis Assessment Notes Treatment Notes Treatment Clinical Notes Mar, Lumbar back pain (ICD-10 - M54.50) [facility] Other 09-20-2022 Evaluation note* Encounter Date Diagnosis Assessment Notes Treatment Notes Treatment Clinical Notes Feb, Elevated liver function tests (ICD-10 - R79.89) [facility] Other 09-16-2022 Evaluation note* Encounter Date Diagnosis Assessment Notes Treatment Notes Treatment Clinical Notes Feb, Acute pain of left shoulder (ICD-10 - M25.512) [facility] report reviewed from 02/20/22 . The [...] pain (ICD-10 - R10.13) The patient advised Sinclair could be causing her GI upset , [...] month [place] at her next office visit. [facility] Other 09-08-2022 Evaluation note* Encounter Date Diagnosis [...] (ICD-10 - M85.80) Noted on Lumbar x-ray. [facility] Other 08-05-2022 Evaluation note* Encounter Date Diagnosis Assessment Notes Treatment Notes Treatment Clinical Notes Jan, COVID-19 (ICD-10 - U07.1) [facility] Other 08-05-2022 Evaluation note* Encounter Date Diagnosis Assessment Notes Treatment Notes Treatment Clinical Notes Jan, Cough (ICD-10 - R05.9) In house covid test is positive. Treatment plan discussed in TE. [facility] Other 07-14-2022 Evaluation note* Encounter Date Diagnosis Assessment Notes Treatment Notes Treatment Clinical Notes Dec, PMR (polymyalgia rheumatica) (ICD-10 - M35.3) [facility] Other 05-27-2022 Evaluation note* Encounter Date Diagnosis Assessment Notes Treatment Notes Treatment Clinical Notes October, PMR (polymyalgia rheumatica) (ICD-10 - M35.3) [facility] Other 04-25-2022 Evaluation note* Encounter Date Diagnosis [...] The patient encourged to continue following with fence maker annually in December as scheduled. I did forward a copy of most current blood work results . [facility] Other 04-04-2022 Evaluation note* Encounter Date Diagnosis Assessment Notes Treatment Notes Treatment Clinical Notes Sep, PMR (polymyalgia rheumatica) (ICD-10 - M35.3) Sep, Hypertension (ICD-10 - I10) [facility] Other 02-24-2022 Evaluation note* Encounter Date Diagnosis [...] if needed. We will continue to montior. [facility] Other 02-16-2022 Evaluation note* Encounter Date Diagnosis Assessment Notes Treatment Notes Treatment Clinical Notes Jul, PMR (polymyalgia rheumatica) (ICD-10 - M35.3) [facility] Other 11-30-2021 Evaluation note* Encounter Date Diagnosis Assessment Notes Treatment Notes Treatment Clinical Notes Apr, PMR (polymyalgia rheumatica) (ICD-10 - M35.3) [facility] Other 11-18-2021 Evaluation note* Encounter Date Diagnosis [...] Hypothyroidism (ICD-10 - E03.9) Blood work ordered. [facility] Other [id number] History general Narrative - Reported* Type Description Date Medical History Shingles Medical History 2010, 02-15-15-mammogram-negativ e Medical History 01/20122619-wjsoalaovth-frtcga, repea t in 3 yrs Medical History 03/2017- colonoscopy- normal Medical History f/u with cardiology NO Medical History ECHO 09/2016 Surgical History Appendectomy Surgical History Gallbladder Removal Surgical History Ovarian Cyst Removal Surgical History Coccyx repair Surgical History Cataracts Bilateral Eyes Surgical History thyroidectomy Dr. Forbes 10/14/2019 Hospitalization History Childbirth x5 Hospitalization History See Above [facility] Other Evaluation noteNo Information[employer]ort [employer] Other Evaluation note* Diagnosis Aortic valve stenosis, etiology of cardiac valve disease unspecified Essential hypertension Unspecified essential hypertension Hyperlipidemia, unspecified hyperlipidemia type Never smoked any substance documented in this encounter [facility] Work Phone: Chief Complaint * [...] being tapered gradually * Shy Wolf MD, [facility] Family History No Family History Records [...] (polymyalgia rhe umatica) (M35.3) Referral Organization [facility] Family Medicin e [place] Referring Provider First Name Suhas Referring Provider Last Name Gaeladan Referring Provider Specialty Family Prac sukhjinder Referred Organization [facility] Referred Address [address] [place], [place],[address] Referred Provider Specialty Rheumatology Referral Priority Routine [...] disease unspecified Procedures Transthoracic Echo (TTE) Complete MO ECHO TTHRC R-T 2D W/WOM-MODE COMPL SPEC&COLR D Shy Wolf MD [address] [facility] [address], [address] [address] Referral ID Status Reason Start Date Expiration Date Visits Requested Visits Authorized Pending Review Perform Procedure 06/19/2023 06/18/2024 1 1 Specialty Diagnoses / Procedures Referred By Contac t Referred To Contact Cardiology Diagnoses Aortic valve stenosis, etiology of cardiac valve disease unspecified Procedures Follow Up In Cardiology Shy Wolf MD [address] [facility] [address], [address] [place] [address] Shy Wolf MD [address] [facility], [address] [place] [address] Referral ID Status Reason Start Date Expiration Date V isits Requested Visits Authorized [id number] Authorized 06/19/2023 06/18/2024 1 1 Additional Source Comments REASON FOR VISIT (unrecogniz ed section and content) Reason Comments Follow-up 6m INFORMATION SOURCE (unrecogn ized section and content) DATE CREATED AUTHOR 03/06/2022 [facility] DATE CREATED AUTHOR AUTHOR'S ORGANIZ ATION 12/25/2022 [facility] DATE CREATED AUTHOR AUTHOR'S ORGANIZ ATION 12/25/2022 [facility] DATE CREATED AUTHOR AUTHOR'S ORGANIZ ATION 03/03/2023 [facility] DATE CREATED AUTHOR AUTHOR'S ORGANIZ ATION 02/17/2024 [facility] DATE CREATED AUTHOR AUTHOR'S ORGANIZ ATION 02/29/2024 [facility] DATE CREATED AUTHOR AUTHOR'S ORGANIZ ATION 04/18/2024 [facility] DATE CREATED AUTHOR AUTHOR'S ORGANIZ ATION 07/29/2024 [facility] Care Teams (unrecognized sec tion and content) Innovation Manager Relationship Specialty Start Date End Date Suhas aGrrett DO PCP - General 06/09/99 FOR RECORDS [...] BE BASED ON THE PRIMARY CLINICAL RECORDS. [facility] [employer] [facility]. provides no warranty or guarantee of the accuracy or completeness of information in this document.
[2024-08-30 12:18] VITALS: BP 228/99; PULSE 60; TEMP 36.7; O2SAT 99
== END | disposition home or self-care (01) ==
LOC: SURGOUT 11:23
PROVIDERS: PCP Family Medicine; Visit Provider Anesthesiology
PROC: (CPT 27096; principal; 2024-08-30 12:50)
DX: Z53.8 Procedure and treatment not carried out for other reasons (principal); R42 Dizziness and giddiness
CPT/HCPCS: 27096

== ENCOUNTER 2024-08-30 12:27 | Emergency (ER) | payer MEDICARE, OTHER, SELFPAY ==
[2024-08-30] VITALS (10 sets, daily range): BP systolic 138–230; BP diastolic 58–102; PULSE 50–66; TEMP 36.7; O2SAT 97–100; BMI 39.6
--- OUTSIDE RECORDS SUMMARY | 2024-08-30 12:38 | XMS_ITS | CCD ---
Author Organization [facility] CliniSynv Care Team Providers Care Sourcing Analyst Name Role Phone uShas Garrett Unavailable Suhas Garrett Unavailable Unavailable Unavailable [...] Translations: [Fosamax] Drug Allergy 3 Unknown, Other [facility] Repository (20 sources) Amoxicillin; Translations: [amoxicillin] Drug Allergy 9 hives [facility] Other (20 sources) Phenytoin; Translations: [Dilantin CAPS] Drug Allergy 3 Rash [facility] Other (20 sources) Valproate; Translations: [Depakote ER TB24] Drug Allergy [facility] Other (1 source) Alendronate Drug Allergy [facility] Repository (1 source) Amoxicillin Drug Allergy [facility] Repository (1 source) Phenytoin Drug Allergy [facility] Repository (1 source) Valproate Drug Allergy [facility] Repository (20 sources) Acetaminophen / HYDROcodone Drug Allergy elevated liver enzymes [facility] Other (1 source) Alendronate Drug Allergy 3 [facility] (3 sources) HYDROcodone; Translations: [HYDROCODONE] Drug Allergy 4 GI Upset [facility] Work Phone: (3 sources) Valproate; Translations: [VALPROIC ACID] Drug Allergy 3 [facility] Work Phone: (1 source) Acetaminophen Drug Allergy 4 [facility] Repository (1 source) Alendronate Drug Allergy 4 [facility] Repository (1 source) Amoxicillin Drug Allergy 4 [facility] Repository (1 source) HYDROcodone Drug Allergy 4 [facility] Repository (1 source) Phenytoin Drug Allergy 4 [facility] Repository (1 source) Valproate Drug Allergy 4 [facility] Repository Medications Current Medications Medication Drug [...] tablet by mouth once daily. 0 Active Guion 3 1000 MG (20 sources) take 1 capsule by mouth once daily Guion 3 1000 MG 1 capsule with a [...] take 1 capsule by mouth once daily Guion-3 Fish Oil 1000 MG Oral Capsule TAKE [...] 0 Refills: 0 Ordered: 13-Dec-2021 DO Active Guion 3 500 CAPS (4 sources) Guion 3 500 CAPS TAKE 1 CAPSULE Daily [...] Coronary arteriosclerosis; 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 [place] coronary artery without angina pectoris] Onset: 09-03-2023 [...] fracture] Chronic Other aftercare (1 source) Other half-way (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; Translations: [OTH BEST SECOND JOBS CURRENT DRUG THERAPY] Onset: 02-22-2022 Episodic Other [...] (Bld) [#/Vol] 0.1 10*3/uL Normal 0.0-0.2 [facility] Comment on above: Performed By: #### V [id number], CMP, TSH3, LIPID, CBC, T4F, ESR #### [address] Basophils/100 WBC (Bld) 1.1 % Normal . [facility] Comment on above: Performed By: #### V [id number], CMP, TSH3, LIPID, CBC, T4F, ESR #### [address] Eosinophils (Bld) [#/Vol] 0.1 10*3/uL Normal 0.0-0.45 [facility] Comment on above: Performed By: #### V [id number], CMP, TSH3, LIPID, CBC, T4F, ESR #### [address] Eosinophils/100 WBC (Bld) 2.2 % Normal . [facility] Comment on above: Performed By: #### V [id number], CMP, TSH3, LIPID, CBC, T4F, ESR #### [address] Erythrocyte distribution width (RBC) [Ratio] 13.5 % Normal 11.9-15.3 [facility] Comment on above: Performed By: #### V [id number], CMP, TSH3, LIPID, CBC, T4F, ESR #### [address] Hematocrit (Bld) [Volume fraction] 37.9 % Normal 34.0-46.4 [facility] Comment on above: Performed By: #### V [id number], CMP, TSH3, LIPID, CBC, T4F, ESR #### [address] Hemoglobin (Bld) [Mass/Vol] 12.9 g/dL Normal 11.8-15.4 [facility] Comment on above: Performed By: #### V [id number], CMP, TSH3, LIPID, CBC, T4F, ESR #### [address] Lymphocytes (Bld) [#/Vol] 2.2 10*3/uL Normal 1.00-4.8 [facility] Comment on above: Performed By: #### V [id number], CMP, TSH3, LIPID, CBC, T4F, ESR #### [address] Lymphocytes/100 WBC (Bld) 34.3 % Normal . [facility] Comment on above: Performed By: #### V [id number], CMP, TSH3, LIPID, CBC, T4F, ESR #### [address] MCH (RBC) [Entitic mass] 33.5 pg Normal 24.7-34.3 [facility] Comment on above: Performed By: #### V [id number], CMP, TSH3, LIPID, CBC, T4F, ESR #### [address] MCV (RBC) [Entitic vol] 98.4 fL Normal 80-100 [facility] Comment on above: Performed By: #### V [id number], CMP, TSH3, LIPID, CBC, T4F, ESR #### [address] Mean Corpuscular HGB Conc 34.1 g/dL Normal 32.0-35.0 [facility] Comment on above: Performed By: #### V [id number], CMP, TSH3, LIPID, CBC, T4F, ESR #### [address] Monocytes (Bld) [#/Vol] 0.6 10*3/uL Normal 0.0-0.8 [facility] Comment on above: Performed By: #### V [id number], CMP, TSH3, LIPID, CBC, T4F, ESR #### [address] Monocytes/100 WBC (Bld) 9.8 % Normal . [facility] Comment on above: Performed By: #### V [id number], CMP, TSH3, LIPID, CBC, T4F, ESR #### [address] Neutrophils (Bld) [#/Vol] 3.4 10*3/uL Normal 1.8-7.7 [facility] Comment on above: Performed By: #### V [id number], CMP, TSH3, LIPID, CBC, T4F, ESR #### [address] Neutrophils/100 WBC (Bld) 52.6 % Normal . [facility] Comment on above: Performed By: #### V [id number], CMP, TSH3, LIPID, CBC, T4F, ESR #### [address] NRBC% 0.3 /100{WBC} Normal 0-0.5 The [facility] Comment on above: Performed By: #### V [id number], CMP, TSH3, LIPID, CBC, T4F, ESR #### [address] Platelet mean volume (Bld) [Entitic vol] 9.3 fL Normal 6.3-10.7 The [facility] Comment on above: Performed By: #### V [id number], CMP, TSH3, LIPID, CBC, T4F, ESR #### [address] Platelets (Bld) [#/Vol] 208 10*3/uL Normal 150-450 [facility] Comment on above: Performed By: #### V [id number], CMP, TSH3, LIPID, CBC, T4F, ESR #### [facility] [address] RBC (Bld) [#/Vol] 3.85 10*6/uL Normal 3.60-5.00 The [facility] Comment on above: Performed By: #### V [id number], CMP, TSH3, LIPID, CBC, T4F, ESR #### [facility] [address] WBC (Bld) [#/Vol] 6.6 10*3/uL Normal 3.8-11.6 The [facility] Comment on above: Performed By: #### V [id number], CMP, TSH3, LIPID, CBC, T4F, ESR #### [address] Comprehensive Metabolic Pane nory 07-28-2024 Albumin [Mass/Vol] 3.7 g/dL Normal 3.5-5.7 The [facility] Comment on above: Performed By: #### V [id number], CMP, TSH3, LIPID, CBC, T4F, ESR #### [address] Albumin/Globulin [Mass ratio] 1.9 {ratio} Normal [facility] Comment on above: Performed By: #### V [id number], CMP, TSH3, LIPID, CBC, T4F, ESR #### [address] ALP [Catalytic activity/Vol] 62 U/L Normal 34-104 [facility] Comment on above: Performed By: #### V [id number], CMP, TSH3, LIPID, CBC, T4F, ESR #### [address] ALT [Catalytic activity/Vol] 21 U/L Normal 7-52 [facility] Comment on above: Performed By: #### V [id number], CMP, TSH3, LIPID, CBC, T4F, ESR #### [address] Anion gap [Moles/Vol] 8.2 mmol/L Normal 6.0-15.0 [facility] Comment on above: Performed By: #### V [id number], CMP, TSH3, LIPID, CBC, T4F, ESR #### [address] AST [Catalytic activity/Vol] 19 U/L Normal 13-39 [facility] Comment on above: Performed By: #### V [id number], CMP, TSH3, LIPID, CBC, T4F, ESR #### [address] Bilirubin [Mass/Vol] 0.7 mg/dL Normal 0.3-1.0 [facility] Comment on above: Performed By: #### V [id number], CMP, TSH3, LIPID, CBC, T4F, ESR #### [address] Calcium [Mass/Vol] 9.7 mg/dL Normal 8.6-10.3 The [facility] Comment on above: Performed By: #### V [id number], CMP, TSH3, LIPID, CBC, T4F, ESR #### [address] Chloride [Moles/Vol] 107 mmol/L Normal 98-107 [facility] Comment on above: Performed By: #### V [id number], CMP, TSH3, LIPID, CBC, T4F, ESR #### [address] CO2 [Moles/Vol] 31.5 mmol/L High 21.0-31.0 The [facility] Comment on above: Performed By: #### V [id number], CMP, TSH3, LIPID, CBC, T4F, ESR #### [address] Creatinine [Mass/Vol] 0.67 mg/dL Normal 0.60-1.20 [facility] Comment on above: Performed By: #### V [id number], CMP, TSH3, LIPID, CBC, T4F, ESR #### [place] [address] [place] GFR/1.73 sq M.predicted MDRD (S/P/Bld) [Vol rate/Area] mL/min/{1.73_m2} Normal [facility] Comment on above: Performed By: #### V [id number], CMP, TSH3, LIPID, CBC, T4F, ESR #### [facility] [address] Globulin (S) [Mass/Vol] 1.9 g/dL Normal [facility] Comment on above: Performed By: #### V [id number], CMP, TSH3, LIPID, CBC, T4F, ESR #### [facility] [address] Glucose [Mass/Vol] 89 mg/dL Normal 70-100 The [facility] Comment on above: Result Comment: [facility] Glucose Reference Range is dependent on time and content of last meal. Glucose of more than 200 mg/dL in a nonstressed, ambulatory subject supports the diagnosis of Diabetes Mellitus. ADA recommended reference range Performed By: #### V [id number], CMP, TSH3, LIPID, CBC, T4F, ESR #### [address] Potassium [Moles/Vol] 3.7 mmol/L Normal 3.5-5.1 [facility] Comment on above: Performed By: #### V [id number], CMP, TSH3, LIPID, CBC, T4F, ESR #### [address] Protein [Mass/Vol] 5.6 g/dL Low 6.4-8.9 The [facility] Comment on above: Performed By: #### V [id number], CMP, TSH3, LIPID, CBC, T4F, ESR #### [address] Sodium [Moles/Vol] 143 mmol/L Normal 136-145 The [facility] Comment on above: Performed By: #### V [id number], CMP, TSH3, LIPID, CBC, T4F, ESR #### [address] Urea nitrogen [Mass/Vol] 19 mg/dL Normal 7-25 [facility] Comment on above: Performed By: #### V [id number], CMP, TSH3, LIPID, CBC, T4F, ESR #### [address] Erythrocyte Sedimentation Ra amy 07-28-2024 ESR (Bld) [Velocity] 9 mm/h Normal 0-29 [facility] Comment on above: Result Comment: PERF ORMED BY: [place] [address] PATHOLOGIST SENIOR PRODUCT CONSULTANT JASIEL HURTADO M.D. Performed By: #### V [id number], CMP, TSH3, LIPID, CBC, T4F, ESR #### [address] Free T4 (Free Thyroxine)on 0 07-28-2024 Free T4 [Mass/Vol] 0.74 ng/dL Normal 0.61-1.12 The [facility] Comment on above: Performed By: #### L IPID, TSH3, CMP, CBC #### [address] Lipid Panelon 07-28-2024 Cholesterol [Mass/Vol] 228 mg/dL High 140-200 [facility] Comment on above: Result Comment: Chol less than 200 mg/dl low risk Chol 201-239 mg/dl borderline risk Chol 240 mg/dl and greater high risk Performed By: #### V [id number], CMP, TSH3, LIPID, CBC, T4F, ESR #### [address] Cholesterol in HDL [Mass/Vol] 96 mg/dL High 23-92 [facility] Comment on above: Result Comment: HDL CHOL ATP-III CLASSIFICATION Cardiovascular Risk HDL > or equal to 60 mg/dL LOW HDL < 40 mg/dL HIGH Performed By: #### V [id number], CMP, TSH3, LIPID, CBC, T4F, ESR #### [facility] [address] [place] [address] [place] Cholesterol.total/Ch olesterol in HDL [Mass ratio] 2.4 {ratio} Normal <5.0 [facility] Comment on above: Performed By: #### V [id number], CMP, TSH3, LIPID, CBC, T4F, ESR #### [facility] [address] LDL Cholesterol,Calculat ed 121 mg/dL High 0-100 [facility] Comment on above: Result Comment: LDL ATP III CLASSIFICATION LDL less than 100 mg/dL Optimal LDL 100-129 mg/dL Near or above optimal LDL 130-159 mg/dL Borderline high LDL 160-189 mg/dL High LDL greater than 189 mg/dL Very high Performed By: #### V [id number], CMP, TSH3, LIPID, CBC, T4F, ESR #### [facility] [address] Triglyceride w/Reflex 57 mg/dL Normal 0-149 [facility] Comment on above: Result Comment: TRIG ATP III CLASSIFICATION TRIG less than 150 mg/dL Normal TRIG 150-199 mg/dL Borderline high TRIG 200-500 mg/dL High TRIG greater than 500 mg/dL Very high Standard traceable to the Center for Disease Conrtrol and Prevention (CDC) test method. Performed By: #### V [id number], CMP, TSH3, LIPID, CBC, T4F, ESR #### [facility] [address] VLDL CHOLESTEROL 11 mg/dL Normal The [facility] Comment on above: Performed By: #### V [id number], CMP, TSH3, LIPID, CBC, T4F, ESR #### [facility] [address] [place] [id number] [place] Thyroid Stimulating Hormoneo n 07-28-2024 TSH Qn 6.38 m[IU]/L High 0.45-5.33 The [facility] Comment on above: Performed By: #### L IPID, TSH3, CMP, CBC #### [facility] [address] [place] [id number] [place] Vitamin D 25 Hydroxy Totalon 07-28-2024 Vitamin D 25 Hydroxy Total 28.4 ng/mL Low 30-100 [facility] Comment on above: Result Comment: ANJU MIN D STATUS 25(OH)VITAMIN D RANGE (ng/mL) Deficient <20 Insufficient 20 to <30 Sufficient 30 to 100 Reference: Yolanda MF,Nathan WOO, Keshawn FRANCO, et al. Evaluation,treatment, and prevention of vitamin D deficiency; an Endocrine Society clinical practice guideline. JCEM. 2010; 96(7):1911-30. PERFORMED BY: [place] [address] PATHOLOGIST SENIOR PRODUCT CONSULTANT JASIEL HURTADO M.D. Performed By: #### L IPID, TSH3, CMP, CBC #### [address] XR scapula LT*on 05-25-2024 XR scapula LT* [facility] [place] [address] [place] [address] XRay Report Signed Patient: Lavonne Villatoro MR#: [id number] : 1935 Acct:[id number] Age/Sex: 88 / F ADM Date: 05/25/24 Loc: XD Room: Type: [facility] Attending Dr: Suhas Garrett DO Copies to: Suhas Garrett DO Ordering Provider: Suhsa Garrett DO Date of Service: 05/25/24 XR/XR shoulder LT min 2V*: M25.519 - Pain in unspecified shoulder ([id number]) XR/XR scapula LT*: M25.519 - Pain in [...] Casandra Gómez M.D.05/25/2024 4:45 PM Dictation Location: [place] [address] Transcribed By: [facility] 05/25/241644 Dictated By: Casandra Gómez MD 05/25/241641 Signed By: 05/25/241644 Normal [facility] TRANSTHORACIC ECHO (TTE) COM [facility] 02-11-2024 TRANSTHORACIC ECHO (TTE) COMPLETE [address], [address] [place] [address] TRANSTHORACIC ECHOCARDIOGRAM REPORT Patient Name: LAVONNE VILLATORO Reading Physician: [id number] Shy Wolf MD, [facility] Study Date: 02/11/2024 Ordering Provider: [id number] SHY WOLF MRN/PID: [id number] Fellow: Nurse: Date of /Age: 3 1935 / 88 years Taxonomy Teacher: LILIA Gender: F Additional Staff: Height: 157.48 cm Admit Date: Weight: 69.40 kg Admission Status: BSA / BMI: 1.71 m2 / 27.98 kg/m2 Department Location: [facility] Blood Pressure: 116 /76 mmHg Study Type: TRANSTHORACIC ECHO (TTE) COMPLETE Diagnosis/ICD: Nonrheumatic aortic (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 [facility] US carotid doppler BIon 05-0 US carotid doppler BI [facility] [place] [address] [place] [id number] Ultrasound Report Signed Patient: Lavonne Villatoro MR#: [id number] : 1935 Acct:[id number] Age/Sex: 88 / F ADM Date: 10/14/23 Loc: Room: Type: [facility] Attending Dr: Suhas Garrett DO Ordering Provider: [...] Hola Wynn M.D.10/15/2023 11:47 AM Dictation Location: [place] [address] Tech: Jackie Aguillon Transcribed By: KIRILL 10/15/23 1147 Dictated By: Hola Wynn MD 10/15/23 1145 Signed By: 10/15/23 1147 Normal [facility] Complete Blood Count Auto Di ffon 09-03-2023 Basophils (Bld) [#/Vol] 0.0 10*3/uL Normal 0.0-0.2 [facility] Comment on above: Result Comment: PERF ORMED BY: [place] [address] PATHOLOGIST SENIOR PRODUCT CONSULTANT JODY SOLANO M.D. Performed By: #### L IPID, TSH3, CMP, CBC #### [address] Basophils/100 WBC (Bld) 0.7 % Normal . [facility] Comment on above: Performed By: #### L IPID, TSH3, CMP, CBC #### [address] Eosinophils (Bld) [#/Vol] 0.1 10*3/uL Normal 0.0-0.45 [facility] Comment on above: Performed By: #### L IPID, TSH3, CMP, CBC #### [address] Eosinophils/100 WBC (Bld) 1.6 % Normal . [facility] Comment on above: Performed By: #### L IPID, TSH3, CMP, CBC #### [address] Erythrocyte distribution width (RBC) [Ratio] 14.8 % Normal 11.9-15.3 [facility] Comment on above: Performed By: #### L IPID, TSH3, CMP, CBC #### [address] Hematocrit (Bld) [Volume fraction] 39.9 % Normal 34.0-46.4 [facility] Comment on above: Performed By: #### L IPID, TSH3, CMP, CBC #### [address] Hemoglobin (Bld) [Mass/Vol] 13.2 g/dL Normal 11.8-15.4 [facility] Comment on above: Performed By: #### L IPID, TSH3, CMP, CBC #### [address] Lymphocytes (Bld) [#/Vol] 2.6 10*3/uL Normal 1.00-4.8 [facility] Comment on above: Performed By: #### L IPID, TSH3, CMP, CBC #### [address] Lymphocytes/100 WBC (Bld) 43.5 % Normal . [facility] Comment on above: Performed By: #### L IPID, TSH3, CMP, CBC #### [address] MCH (RBC) [Entitic mass] 33.2 pg Normal 24.7-34.3 [facility] Comment on above: Performed By: #### L IPID, TSH3, CMP, CBC #### [address] MCV (RBC) [Entitic vol] 100.5 fL High 80-100 [facility] Comment on above: Performed By: #### L IPID, TSH3, CMP, CBC #### [address] Mean Corpuscular HGB Conc 33.0 g/dL Normal 32.0-35.0 [facility] Comment on above: Performed By: #### L IPID, TSH3, CMP, CBC #### [address] Monocytes (Bld) [#/Vol] 0.6 10*3/uL Normal 0.0-0.8 [facility] Comment on above: Performed By: #### L IPID, TSH3, CMP, CBC #### [address] Monocytes/100 WBC (Bld) 9.7 % Normal . [facility] Comment on above: Performed By: #### L IPID, TSH3, CMP, CBC #### [address] Neutrophils (Bld) [#/Vol] 2.7 10*3/uL Normal 1.8-7.7 [facility] Comment on above: Performed By: #### L IPID, TSH3, CMP, CBC #### [address] Neutrophils/100 WBC (Bld) 44.5 % Normal . [facility] Comment on above: Performed By: #### L IPID, TSH3, CMP, CBC #### [address] NRBC% 0.2 /100{WBC} Normal 0-0.5 The [facility] Comment on above: Performed By: #### L IPID, TSH3, CMP, CBC #### [address] Platelet mean volume (Bld) [Entitic vol] 9.2 fL Normal 6.3-10.7 The [facility] Comment on above: Performed By: #### L IPID, TSH3, CMP, CBC #### [place] [address] [place] Platelets (Bld) [#/Vol] 229 10*3/uL Normal 150-450 [facility] Comment on above: Performed By: #### L IPID, TSH3, CMP, CBC #### [address] RBC (Bld) [#/Vol] 3.98 10*6/uL Normal 3.60-5.00 The [facility] Comment on above: Performed By: #### L IPID, TSH3, CMP, CBC #### [address] WBC (Bld) [#/Vol] 6.0 10*3/uL Normal 3.8-11.6 The [facility] Comment on above: Performed By: #### L IPID, TSH3, CMP, CBC #### [address] Comprehensive Metabolic Pane nory 09-03-2023 Albumin [Mass/Vol] 3.8 g/dL Normal 3.5-5.7 The [facility] Comment on above: Performed By: #### L IPID, TSH3, CMP, CBC #### [address] Albumin/Globulin [Mass ratio] 1.7 {ratio} Normal [facility] Comment on above: Performed By: #### L IPID, TSH3, CMP, CBC #### [address] ALP [Catalytic activity/Vol] 72 U/L Normal 34-104 [facility] Comment on above: Performed By: #### L IPID, TSH3, CMP, CBC #### [address] ALT [Catalytic activity/Vol] 43 U/L Normal 7-52 [facility] Comment on above: Performed By: #### L IPID, TSH3, CMP, CBC #### [address] Anion gap [Moles/Vol] 8.9 mmol/L Normal 6.0-15.0 [facility] Comment on above: Performed By: #### L IPID, TSH3, CMP, CBC #### [address] AST [Catalytic activity/Vol] 23 U/L Normal 13-39 [facility] Comment on above: Performed By: #### L IPID, TSH3, CMP, CBC #### [address] Bilirubin [Mass/Vol] 1.2 mg/dL High 0.3-1.0 The [facility] Comment on above: Performed By: #### L IPID, TSH3, CMP, CBC #### [address] Calcium [Mass/Vol] 9.5 mg/dL Normal 8.6-10.3 The [facility] Comment on above: Performed By: #### L IPID, TSH3, CMP, CBC #### [address] Chloride [Moles/Vol] 107 mmol/L Normal 98-107 The [facility] Comment on above: Performed By: #### L IPID, TSH3, CMP, CBC #### [address] CO2 [Moles/Vol] 30.0 mmol/L Normal 21.0-31.0 The [facility] Comment on above: Performed By: #### L IPID, TSH3, CMP, CBC #### [address] Creatinine [Mass/Vol] 0.76 mg/dL Normal 0.60-1.20 The [facility] Comment on above: Performed By: #### L IPID, TSH3, CMP, CBC #### [place] [address] [place] GFR/1.73 sq M.predicted MDRD (S/P/Bld) [Vol rate/Area] mL/min/{1.73_m2} Normal The [facility] Comment on above: Performed By: #### L IPID, TSH3, CMP, CBC #### [place] [address] [place] Globulin (S) [Mass/Vol] 2.2 g/dL Normal The [facility] Comment on above: Performed By: #### L IPID, TSH3, CMP, CBC #### [address] Glucose [Mass/Vol] 79 mg/dL Normal 70-100 The [facility] Comment on above: Result Comment: [place] om Glucose Reference Range is dependent on time and content of last meal. Glucose of more than 200 mg/dL in a nonstressed, ambulatory subject supports the diagnosis of Diabetes Mellitus. ADA recommended reference range Performed By: #### L IPID, TSH3, CMP, CBC #### [facility] [address] Potassium [Moles/Vol] 3.9 mmol/L Normal 3.5-5.1 The [facility] Comment on above: Performed By: #### L IPID, TSH3, CMP, CBC #### [address] Protein [Mass/Vol] 6.0 g/dL Low 6.4-8.9 The [facility] Comment on above: Performed By: #### L IPID, TSH3, CMP, CBC #### [address] Sodium [Moles/Vol] 142 mmol/L Normal 136-145 The [facility] Comment on above: Performed By: #### L IPID, TSH3, CMP, CBC #### [address] Urea nitrogen [Mass/Vol] 22 mg/dL Normal 7-25 The [facility] Comment on above: Performed By: #### L IPID, TSH3, CMP, CBC #### [address] Lipid Panelon 09-03-2023 Cholesterol [Mass/Vol] 243 mg/dL High 140-200 The [facility] Comment on above: Result Comment: Chol less than 200 mg/dl low risk Chol 201-239 mg/dl borderline risk Chol 240 mg/dl and greater high risk Performed By: #### L IPID, TSH3, CMP, CBC #### [address] Cholesterol in HDL [Mass/Vol] 98 mg/dL High 23-92 The [facility] Comment on above: Result Comment: HDL CHOL ATP-III CLASSIFICATION Cardiovascular Risk HDL > or equal to 60 mg/dL LOW HDL < 40 mg/dL HIGH Performed By: #### L IPID, TSH3, CMP, CBC #### [facility] [address] Cholesterol.total/Ch olesterol in HDL [Mass ratio] 2.5 {ratio} Normal <5.0 The [facility] Comment on above: Performed By: #### L IPID, TSH3, CMP, CBC #### [facility] [address] LDL Cholesterol,Calculat ed 121 mg/dL High 0-100 The [facility] Comment on above: Result Comment: LDL ATP III CLASSIFICATION LDL less than 100 mg/dL Optimal LDL 100-129 mg/dL Near or above optimal LDL 130-159 mg/dL Borderline high LDL 160-189 mg/dL High LDL greater than 189 mg/dL Very high Performed By: #### L IPID, TSH3, CMP, CBC #### [address] Triglyceride w/Reflex 122 mg/dL Normal 0-149 The [facility] Comment on above: Result Comment: TRIG ATP III CLASSIFICATION TRIG less than 150 mg/dL Normal TRIG 150-199 mg/dL Borderline high TRIG 200-500 mg/dL High TRIG greater than 500 mg/dL Very high Standard traceable to the Center for Disease Conrtrol and Prevention (CDC) test method. Performed By: #### L IPID, TSH3, CMP, CBC #### [address] VLDL CHOLESTEROL 24 mg/dL Normal The [facility] Comment on above: Performed By: #### L IPID, TSH3, CMP, CBC #### [address] Thyroid Stimulating Hormoneo n 09-03-2023 TSH Qn 4.01 m[IU]/L Normal 0.45-5.33 The [facility] Comment on above: Result Comment: PERF ORMED BY: [place] [address] PATHOLOGIST SENIOR PRODUCT CONSULTANT JODY SOLANO M.D. Performed By: #### L IPID, TSH3, CMP, CBC #### [facility] [address] Complete Blood Count Auto Di ffon 07-08-2023 Basophils (Bld) [#/Vol] 0.459126806 10*3/uL Normal 0.0-0.2 10*3/uL [facility] Other Basophils/100 WBC (Bld) 0.900 % . % [facility] Other Eosinophils (Bld) [#/Vol] 0.664770508 10*3/uL Normal 0.0-0.45 10*3/uL [facility] Other Eosinophils/100 WBC (Bld) 1.100 % . % [facility] Other Erythrocyte distribution width (RBC) [Ratio] 14.000 % Normal 11.9-15.3 % [facility] Other Hematocrit (Bld) [Volume fraction] 37.700 % Normal 34.0-46.4 % [facility] Other Hemoglobin (Bld) [Mass/Vol] 12.548850 g/dL Normal 11.8-15.4 g/dL [facility] Other Lymphocytes (Bld) [#/Vol] 2.788804964 10*3/uL Normal 1.00-4.8 10*3/uL [facility] Other Lymphocytes/100 WBC (Bld) 35.100 % . % [facility] Other MCH (RBC) [Entitic mass] 33.3000 pg Normal 24.7-34.3 pg [facility] Other MCV (RBC) [Entitic vol] 99.7000 fL Normal 80-100 fL [facility] Other Monocytes (Bld) [#/Vol] 0.939787524 10*3/uL Normal 0.0-0.8 10*3/uL [facility] Other Monocytes/100 WBC (Bld) 10.000 % . % [facility] Other Neutrophils (Bld) [#/Vol] 3.365244252 10*3/uL Normal 1.8-7.7 10*3/uL [facility] Other Neutrophils/100 WBC (Bld) 52.900 % . % [facility] Other Platelet mean volume (Bld) [Entitic vol] 9.9000 fL Normal 6.3-10.7 fL [facility] Other Platelets (Bld) [#/Vol] 224 10*3/uL Normal 150-450 10*3/uL [facility] Other RBC (Bld) [#/Vol] 3.78 10*6/uL Normal 3.60-5.00 [facility] Other WBC (Bld) [#/Vol] 7.436974246 10*3/uL Normal 3.8 -11.6 10*3/uL [facility] Other Complete Blood Count Auto Diff 7.1 10*3/uL Normal 3.8-11.6 10*3/uL [facility] Other Complete Blood Count Auto Diff 33.4 g/dL Normal 32.0-35.0 g/dL [facility] Other Complete Blood Count Auto Diff 0.1 /100{WBC} Normal 0-0.5 /100{WBC} [facility] Other Comprehensive Metabolic Pane nory 07-08-2023 Albumin [Mass/Vol] 3.712300 g/dL Normal 3.5-5.7 g/dL [facility] Other Albumin/Globulin [Mass ratio] 1.7 {ratio} [facility] Other ALP [Catalytic activity/Vol] 140 U/L High 34-104 U/L [facility] Other ALT [Catalytic activity/Vol] 71 U/L High 7-52 U/L [facility] [employer] Other AST [Catalytic activity/Vol] 20 U/L Normal 13-39 U/L [place] [facility] Other Bilirubin [Mass/Vol] 0.6940577 mg/dL Normal 0.3-1.0 mg /dL [place] [facility] Other Calcium [Mass/Vol] 9.5686527 mg/dL Normal 8.6-10 .3 mg/dL [place] [facility] Other Chloride [Moles/Vol] 107 mmol/L Normal 98-107 mmol/L [facility] [employer] Other CO2 [Moles/Vol] 30.48431159 mmol/L Normal 21.0-3 1.0 mmol/L [place] [facility] Other Creatinine [Mass/Vol] 0.56696994 mg/dL Normal 0.60-1.20 mg/dL [place] [facility] Other GFR/1.73 sq M.predicted MDRD (S/P/Bld) [Vol rate/Area] mL/min/{1.73_m2} [facility] [employer] [facility] Other Glucose [Mass/Vol] 89 mg/dL Normal 70-100 mg/dL [facility] [employer] Other Potassium [Moles/Vol] 3.02910853 mmol/L Normal 3.5-5.1 mmol/L [place] [facility] Other Protein [Mass/Vol] 6.051059 g/dL Low 6.4-8.9 g/dL [facility] Other Sodium [Moles/Vol] 143 mmol/L Normal 136-145 mmol/L [place] [facility] Other Urea nitrogen [Mass/Vol] 21 mg/dL Normal 7-25 mg/dL [facility] Other Comprehensive Metabolic Panel 2.2 g/dL [facility] Other Free T4 (Free Thyroxine)on 0 07-08-2023 Free T4 [Mass/Vol] 1.94122292 ng/dL High 0.61- 1.12 ng/dL [facility] Other Thyroid Antibodies TPO+Tg Ab on 07-08-2023 Thyroid Antibodies TPO+Tg Ab 11 0-34 [facility] Other Thyroid Antibodies TPO+Tg Ab <1.0 0.0-0.9 [facility] Other Thyroid Stimulating Hormoneo n 07-08-2023 TSH Qn 2.40854813344 m[IU]/L Normal 0.45-5 .33 u[iU]/mL [facility] Other Echocardiogramon 02-26-[address], [address] [place] [address] TRANSTHORACIC ECHOCARDIOGRAM REPORT Patient Name: LAVONNE Shruti Physician: [id number] Shy Wolf MD, [facility] Study Date: 02/26/2023 Referring SHY WOLF Physician: MRN/PID: [id number] PCP: Suhas Garrett MD Accession/Order#: [id number] [facility] Location: Date of : 1935 Fellow: Gender: F Nurse: Admit Date: Taxonomy Teacher: Sheridan Lemus [facility] Height: 157.48 cm CC Report to: Weight: 67.13 kg Study Type: Echocardiogram BSA: 1.68 m2 Blood Pressure: 122 /76 mmHg Diagnosis/ICD: I35.0-Nonrheumatic aortic (valve) stenosis; R01.1-Cardiac murmur, unspecified Indication: HTN, Hyperlipidemia, Overweight, Hypothyroid, Polymyalgia Rheumatica Procedure/CPT: Echo Complete w Full [id number] Study Detail: The following Echo studies were [...] mmHg PIEDV: 2.50 m/s PADP: 28.0 mmHg [id number] Shy Wolf MD, [facility] Electronically signed on 03/01/2023 at 2:16:46 PM Final Normal [facility] Office Visit (Cardiology)on 12-24-2022 Follow-up visit Diagnoses/Problems Assessed Aortic stenosis (424.1) (I35.0) Murmur, cardiac (785.2) (R01.1) Essential hypertension (401.9) (I10) Hyperlipidemia (272.4) (E78.5) Overweight with body mass index (BMI) of 27 to 27.9 in adult (278.02,V85.23) (E66.3,Z68.27) Never smoker Hypothyroidism (244.9) (E03.9) PMR (polymyalgia rheumatica) (725) (M35.3) Orders Aortic stenosis, Murmur, cardiac Echocardiogram; Status:Hold For - Scheduling,Retrospect bola Authorization; Requested for:[id number]; Essential hypertension, Hyperlipidemia Changed: From Aspirin EC 81 MG TBEC TAKE 1 TABLET To Aspirin 81 MG Oral Tablet Delayed Release TAKE 1 TABLET DAILY Overweight with body mass index (BMI) of 27 to 27.9 in adult Healthy Weight Tips; Status:Complete - Retrospective Authorization; Done: [id number] Some eating tips that can help you lose weight.; Status:Complete - Retrospective Authorization; Done: [id number] SocHx: Never smoker Tobacco Use Screening; Status:Complete; Done: [id number] Patient Instructions Please bring all medicines, vitamins, [...] is being tapered gradually Shy Wolf MD, [facility] Past Medical History Problems History of [...] Multi Vitamin Oral TabletTAKE 1 TABLET DAILY. Guion-3 Fish Oil 1000 MG Oral CapsuleTAKE 1 [...] negative for complaint. Vitals Vital Signs Recorded: [id number] 11:32AM Heart Rate68, R Radial Geahjgqy371, RUE, Sitting Ngrkntpkr09, RUE, Sitting Height5 ft 2 in Toriip424 lb BMI Egzwaladlp77.07 kg/m2 BSA Calculated1.68 Tobacco Useb) No PHQ-2 [...] distress a (more content not included)... Normal Jovie Tobacco Screening.on 023 Adult depression screening assessment No [facility] [employer] [address] DO Work Phone: Fall risk assessment a) No falls within the last year [facility] [employer] 250 DO Work Phone: Tobacco use status CP b) No [facility] [employer] 250 DO Work Phone: Complete Blood Count Auto Di ffon 02-22-2022 Basophils (Bld) [#/Vol] 0.951455596 10*3/uL Normal 0.0-0.2 10*3/uL [facility] Other Basophils/100 WBC (Bld) 0.700 % . % [facility] Other Eosinophils (Bld) [#/Vol] 0.082043338 10*3/uL Normal 0.0-0.45 10*3/uL [facility] Other Eosinophils/100 WBC (Bld) 0.700 % . % [facility] Other Erythrocyte distribution width (RBC) [Ratio] 13.500 % Normal 11.9-15.3 % [facility] Other Hematocrit (Bld) [Volume fraction] 38.400 % Normal 34.0-46.4 % [facility] Other Hemoglobin (Bld) [Mass/Vol] 12.908454 g/dL Normal 11.8-15.4 g/dL [facility] Other Lymphocytes (Bld) [#/Vol] 0.497593812 10*3/uL Low 1.00-4.8 10*3/uL [facility] Other Lymphocytes/100 WBC (Bld) 12.600 % . % [facility] Other MCH (RBC) [Entitic mass] 33.7000 pg Normal 24.7-34.3 pg [facility] Other MCV (RBC) [Entitic vol] 100.4000 fL High 80-100 fL [facility] Other Monocytes (Bld) [#/Vol] 0.756742313 10*3/uL Normal 0.0-0.8 10*3/uL [facility] Other Monocytes/100 WBC (Bld) 6.800 % . % [facility] Other Neutrophils (Bld) [#/Vol] 5.293373876 10*3/uL Normal 1.8-7.7 10*3/uL [facility] Other Neutrophils/100 WBC (Bld) 79.200 % . % [facility] Other Platelet mean volume (Bld) [Entitic vol] 9.4000 fL Normal 6.3-10.7 fL [facility] Other Platelets (Bld) [#/Vol] 223 10*3/uL Normal 150-450 10*3/uL [facility] Other RBC (Bld) [#/Vol] 3.5568287101 10*6/uL Normal 3. 60-5.00 10*6/uL [facility] Other WBC (Bld) [#/Vol] 6.291144194 10*3/uL Normal 3.8 -11.6 10*3/uL [facility] Other Complete Blood Count Auto Diff 6.6 10*3/uL Normal 4.5-11.0 10*3/uL [facility] Other Complete Blood Count Auto Diff 33.6 g/dL Normal 32.0-35.0 g/dL [facility] Other Complete Blood Count Auto Diff 0.1 % Normal 0-0.5 % [facility] Other Erythrocyte Sedimentation Ra amy 02-22-2022 ESR (Bld) [Velocity] 28 mm/h Normal 0-29 [facility] Other VASC LAB Carotid Artery Dupl ex Ultrasoundon 02-21-2022 US.doppler Carotid arteries [facility] [employer] [address] [place] Work Phone: COVID Quick Testingon 2021 Result Positive [facility] Other Falls Screening (Age 18+)on 12-26-2021 Fall risk assessment a) No falls within the last year [facility] [employer] 250 DO Work Phone: Office Visit (Cardiology)on [...] Multi Vitamin Oral TabletTAKE 1 TABLET DAILY. Guion 3 500 CAPSTAKE 1 CAPSULE Daily predniSONE 5 MG Oral Pwbxks1RA 7.5MG BY MOUTH ONE DAILY ALTERNATING EVERY OTHER DAY Allergies Medication amoxicillin Hives;; Recorded By: Kayla Orr; 10/17/2021 10:50:34 AM Dilantin CAPS Rash; Recorded By: Kayla Orr; 10/17/2021 10:50:34 AM Fosamax eye pain; Recorded By: Kayla Orr; 10/17/2021 10:50:34 AM Depakote ER TB24 Recorded By: Kayla Orr; 10/17/2021 10:50:34 AM Vitals Vital Signs Recorded: [id number] 11:04AMRecorded: 05Tor8862 11:00AM Heart Rate56, R Oxdndf19, R Radial Jaourkoe270, LUE, Trrqaaq917, RUE Siktnttks79, LUE, Pmaavmo05, RUE Height5 ft 2 in5 ft 2 in Qjoghg985 lb 143 lb BMI Htxbwjpilx50.16 kg/m226.16 kg/m2 BSA Calculated1.661.66 Falls Screening (Age 18+)a) No falls within the last year Signatures Electronically signed by : Shy Wolf MD; Dec 26 2021 4:02PM EST (Author) Normal Jovie Tobacco Screening.on 022 Adult depression screening assessment No [employer] Work Phone: Fall risk assessment a) No falls within the last year [facility] Work Phone: Tobacco use status CPHS b) No [facility] Work Phone: Vital Signs Date Time Vital Sign Value 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 Facility 07-04-2023 11:15-0500 Body height 157.48 cm Suhas Garrett Other [facility] Other 07-04-2023 11:15-0500 Body mass index (BMI) [Ratio] 28.53 kg/m2 Suhas Garrett Other [facility] Other 07-04-2023 11:15-0500 Body weight 70.76 kg Suhas Garrett Other [facility] Other 07-04-2023 11:15-0500 Diastolic blood pressure 84 mm[Hg] Suhas Garrett Other [facility] Other 07-04-2023 11:15-0500 Respiratory rate 20 /min Suhas Garrett Other [facility] Other 07-04-2023 11:15-0500 SaO2% (BldA) [Mass fraction] 99 % Suhas Garrett Other [facility] Other 07-04-2023 11:15-0500 Systolic blood pressure 150 mm[Hg] Suhas Garrett Other [facility] Other 06-19-2023 11:09-0500 Body height 157.5 cm Shy Wolf MD Work Phone: [facility] 06-19-2023 11:09-0500 Body mass index (BMI) [Ratio] 27.98 kg/m2 Shy Wolf MD Work Phone: [facility] 06-19-2023 11:09-0500 Body weight 69.4 kg Shy Wolf MD Work Phone: [facility] 06-19-2023 11:09-0500 Diastolic blood pressure 76 mm[Hg] Shy Wolf MD Work Phone: [facility] 06-19-2023 11:09-0500 Heart rate 60 /min Shy Wolf MD Work Phone: [facility] 06-19-2023 11:09-0500 Systolic blood pressure 120 mm[Hg] Shy Wolf MD Work Phone: [facility] 05-30-2023 11:00-0500 Body height 157.48 cm Suhas Garrett Other [facility] Other 05-30-2023 11:00-0500 Body mass index (BMI) [Ratio] 27.8 kg/m2 Suhas Garrett Other [facility] Other 05-30-2023 11:00-0500 Body weight 68.95 kg Suhas Garrett Other [facility] Other 05-30-2023 11:00-0500 Diastolic blood pressure 80 mm[Hg] Suhas Garrett Other [facility] Other 05-30-2023 11:00-0500 Respiratory rate 18 /min Suhas Garrett Other [facility] Other 05-30-2023 11:00-0500 SaO2% (BldA) [Mass fraction] 96 % Suhas Garrett Other [facility] Other 05-30-2023 11:00-0500 Systolic blood pressure 122 mm[Hg] Suhas Garrett Other [facility] Other 02-28-2023 10:30-0400 Body height 157.48 cm Suhas Garrett Other [facility] Other 02-28-2023 10:30-0400 Body mass index (BMI) [Ratio] 27.98 kg/m2 Suhas Garrett Other [facility] Other 02-28-2023 10:30-0400 Body weight 69.4 kg Suhas Garrett Other [facility] Other 02-28-2023 10:30-0400 Diastolic blood pressure 76 mm[Hg] Suhas Garrett Other [facility] Other 02-28-2023 10:30-0400 Respiratory rate 16 /min Suhas Garrett Other [facility] Other 02-28-2023 10:30-0400 SaO2% (BldA) [Mass fraction] 91 % Suhas Garrett Other [facility] Other 02-28-2023 10:30-0400 Systolic blood pressure 134 mm[Hg] Suhas Garrett Other [facility] Other 12-24-2022 11:32-0400 Body height 157.48 cm Suhas Garrett Work Phone: [employer] DO Work Phone: 12-24-2022 11:32-0400 Body mass index (BMI) [Ratio] 27.07 kg/m2 Suhas Garrett Work Phone: [facility] 250 DO Work Phone: 12-24-2022 11:32-0400 Body surface area Derived from formula 1.68 m2 Suhas Garrett Work Phone: [facility] 250 DO Work Phone: 12-24-2022 11:32-0400 Body weight 67.13 kg Suhas Garrett Work Phone: [facility] 250 DO Work Phone: 12-24-2022 11:32-0400 Diastolic blood pressure 76 mm[Hg] Suhas Garrett Work Phone: [facility] 250 DO Work Phone: 12-24-2022 11:32-0400 Heart rate 68 /min Suhas Garrett Work Phone: [facility] 250 DO Work Phone: 12-24-2022 11:32-0400 Systolic blood pressure 118 mm[Hg] Suhas Garrett Work Phone: [facility] 250 DO Work Phone: 12-06-2022 10:30-0400 Body height 157.48 cm Suhas Garrett Other [employer] [facility] [employer] Other 12-06-2022 10:30-0400 Body mass index (BMI) [Ratio] 27.98 kg/m2 Suhas Garrett Other [facility] Other 12-06-2022 10:30-0400 Body weight 69.4 kg Suhas Garrett Other [facility] Other 12-06-2022 10:30-0400 Diastolic blood pressure 70 mm[Hg] Suhas Garrett Other [facility] Other 12-06-2022 10:30-0400 Respiratory rate 16 /min Suhasraquel Mayoadan Other [facility] Other 12-06-2022 10:30-0400 SaO2% (BldA) [Mass fraction] 98 % Suhas Garrett Other [facility] Other 12-06-2022 10:30-0400 Systolic blood pressure 146 mm[Hg] Suhas Garrett Other [facility] Other 09-20-2022 11:45-0400 Body height 157.48 cm Suhas Garrett Other [facility] Other 09-20-2022 11:45-0400 Body mass index (BMI) [Ratio] 26.34 kg/m2 Suhas Ugo Other [facility] Other 09-20-2022 11:45-0400 Body weight 65.32 kg Suhas Ugo Other [facility] Other 09-20-2022 11:45-0400 Diastolic blood pressure 70 mm[Hg] Suhas Garrett Other [facility] Other 09-20-2022 11:45-0400 Respiratory rate 16 /min Suhas Garrett Other [facility] Other 09-20-2022 11:45-0400 SaO2% (BldA) [Mass fraction] 98 % Suhas Garrett Other [facility] Other 09-20-2022 11:45-0400 Systolic blood pressure 130 mm[Hg] Suhas Garrett Other [facility] Other 07-22-2022 11:30-0500 Body height 157.48 cm Suhas Garrett Other [facility] Other 07-22-2022 11:30-0500 Body mass index (BMI) [Ratio] 26.85 kg/m2 Suhas Garrett Other [facility] Other 07-22-2022 11:30-0500 Body weight 66.59 kg Suhas Garrett Other [facility] Other 07-22-2022 11:30-0500 Diastolic blood pressure 70 mm[Hg] Suhas Garrett Other [facility] Other 07-22-2022 11:30-0500 Respiratory rate 16 /min Suhas Garrett Other [facility] Other 07-22-2022 11:30-0500 SaO2% (BldA) [Mass fraction] 98 % Suhas Garrett Other [facility] Other 07-22-2022 11:30-0500 Systolic blood pressure 122 mm[Hg] Suhas Garrett Other [facility] Other 04-17-2022 11:45-0500 Body height 157.48 cm Suhas Garrett Other [facility] Other 04-17-2022 11:45-0500 Body mass index (BMI) [Ratio] 26.88 kg/m2 Suhas Garrett Other [facility] Other 04-17-2022 11:45-0500 Body weight 66.68 kg Suhas Garrett Other [facility] Other 04-17-2022 11:45-0500 Diastolic blood pressure 72 mm[Hg] Suhas Garrett Other [facility] Other 04-17-2022 11:45-0500 Respiratory rate 16 /min Suhas Garrett Other [facility] Other 04-17-2022 11:45-0500 SaO2% (BldA) [Mass fraction] 99 % Suhas Garrett Other [facility] Other 04-17-2022 11:45-0500 Systolic blood pressure 138 mm[Hg] Suhas Garrett Other [facility] Other 02-22-2022 10:15-0400 Body height 157.48 cm Suhas Garrett Other [facility] Other 02-22-2022 10:15-0400 Body mass index (BMI) [Ratio] 27.07 kg/m2 Suhas Garrett Other [facility] Other 02-22-2022 10:15-0400 Body weight 67.13 kg Suhas Garrett Other [facility] Other 02-22-2022 10:15-0400 Diastolic blood pressure 70 mm[Hg] Suhas Garrett Other [facility] Other 02-22-2022 10:15-0400 Respiratory rate 16 /min Suhas Garrett Other [facility] Other 02-22-2022 10:15-0400 SaO2% (BldA) [Mass fraction] 97 % Suhas Garrett Other [facility] Other 02-22-2022 10:15-0400 Systolic blood pressure 122 mm[Hg] Suhas Garrett Other [facility] Other 02-21-2022 10:45-0400 70 1 Suhas Garrett Work Phone: [facility] [address] [place] Work Phone: Comment on above: [id number] 02-14-2022 15:45-0400 Body height 157.48 cm Suhas Garrett Other [facility] Other 02-14-2022 15:45-0400 Body mass index (BMI) [Ratio] 26.7 kg/m2 Suhas Garrett Other [facility] Other 02-14-2022 15:45-0400 Body weight 66.23 kg Suhas Garrett Other [facility] Other 02-14-2022 15:45-0400 Diastolic blood pressure 72 mm[Hg] Suhas Garrett Other [facility] Other 02-14-2022 15:45-0400 Respiratory rate 16 /min Suhas Garrett Other [facility] Other 02-14-2022 15:45-0400 SaO2% (BldA) [Mass fraction] 96 % Suhas Garrett Other [facility] Other 02-14-2022 15:45-0400 Systolic blood pressure 132 mm[Hg] Suhas Garrett Other [facility] Other 12-26-2021 11:04-0400 Body height 157.48 cm Suhas Garrett Work Phone: [facility] 250 DO Work Phone: 12-26-2021 11:04-0400 Body mass index (BMI) [Ratio] 26.16 kg/m2 Suhas Garrett Work Phone: [facility] 250 DO Work Phone: 12-26-2021 11:04-0400 Body surface area Derived from formula 1.66 m2 Suhas Garrett Work Phone: [facility] 250 DO Work Phone: 12-26-2021 11:04-0400 Body weight 64.86 kg Suhas Garrett Work Phone: [facility] 250 DO Work Phone: 12-26-2021 11:04-0400 Diastolic blood pressure 68 mm[Hg] Suhas Garrett Work Phone: [facility] 250 DO Work Phone: 12-26-2021 11:04-0400 Heart rate 56 /min Suhas Garrett Work Phone: [facility] 250 DO Work Phone: 12-26-2021 11:04-0400 Systolic blood pressure 126 mm[Hg] Suhas Garrett Work Phone: [facility] DO Work Phone: 12-26-2021 11:00-0400 Diastolic blood pressure 70 mm[Hg] Suhas Mayos Work Phone: [facility] 250 DO Work Phone: 12-26-2021 11:00-0400 Systolic blood pressure 130 mm[Hg] Suhas Garrett Work Phone: [facility] 250 DO Work Phone: 12-13-2021 11:39-0400 Diastolic blood pressure 80 mm[Hg] Suhas Garrett Work Phone: [facility] Work Phone: 12-13-2021 11:39-0400 Systolic blood pressure 170 mm[Hg] Suhas Garrett Work Phone: [facility] Work Phone: 12-13-2021 11:22-0400 Diastolic blood pressure 80 mm[Hg] Suhas Garrett Work Phone: [facility] Work Phone: 12-13-2021 11:22-0400 Systolic blood pressure 158 mm[Hg] Suhas Mayoadan Work Phone: [facility] Work Phone: 12-13-2021 11:17-0400 Body height 157.48 cm Suhas Hoffman Ugo Work Phone: [facility] Work Phone: 12-13-2021 11:17-0400 Body mass index (BMI) [Ratio] 26.52 kg/m2 Suhas Garrett Work Phone: [facility] Work Phone: 12-13-2021 11:17-0400 Body surface area Derived from formula 1.67 m2 Suhas Garrett Work Phone: [facility] Work Phone: 12-13-2021 11:17-0400 Body weight 65.77 kg Suhas Garrett Work Phone: [facility] Work Phone: 12-13-2021 11:17-0400 Diastolic blood pressure 80 mm[Hg] Suhas Garrett Work Phone: [facility] Work Phone: 12-13-2021 11:17-0400 Heart rate 60 /min Suhas Garrett Work Phone: [facility] Work Phone: 12-13-2021 11:17-0400 Systolic blood pressure 160 mm[Hg] Suhas Garrett Work Phone: [facility] Work Phone: 10-01-2021 13:30-0400 Body height 157.48 cm Suhas Garrett Other [facility] Other 10-01-2021 13:30-0400 Body mass index (BMI) [Ratio] 26.34 kg/m2 Suhas Garrtet Other [facility] Other 10-01-2021 13:30-0400 Body weight 65.32 kg Suhas Garrett Other [facility] Other 10-01-2021 13:30-0400 Diastolic blood pressure 72 mm[Hg] Suhas Garrett Other [facility] Other 10-01-2021 13:30-0400 Respiratory rate 18 /min Suhas Garrett Other [facility] Other 10-01-2021 13:30-0400 SaO2% (BldA) [Mass fraction] 99 % Suhas Garrett Other [facility] Other 10-01-2021 13:30-0400 Systolic blood pressure 130 mm[Hg] Suhas Garrett Other [facility] Other 08-02-2021 13:30-0500 Body height 157.48 cm Suhas Garrett Other [facility] Other 08-02-2021 13:30-0500 Body mass index (BMI) [Ratio] 26.52 kg/m2 Suhasraquel Mayoadan Other [facility] Other 08-02-2021 13:30-0500 Body weight 65.77 kg Suhasraquel Garrett Other [facility] Other 08-02-2021 13:30-0500 Diastolic blood pressure 70 mm[Hg] Suhas Garrett Other [facility] Other 08-02-2021 13:30-0500 Respiratory rate 16 /min Suhas Garrett Other [facility] Other 08-02-2021 13:30-0500 SaO2% (BldA) [Mass fraction] 99 % Suhas Gaeladan Other [facility] Other 08-02-2021 13:30-0500 Systolic blood pressure 118 mm[Hg] Suhas Garrett Other [facility] Other 04-26-2021 13:30-0500 Body height 157.48 cm Suhas Ugo Other [facility] Other 04-26-2021 13:30-0500 Body mass index (BMI) [Ratio] 25.97 kg/m2 Suhas Ugo Other [facility] Other 04-26-2021 13:30-0500 Body weight 64.41 kg Suhas Garrett Other [facility] Other 04-26-2021 13:30-0500 Diastolic blood pressure 74 mm[Hg] Suhas Garrett Other [facility] Other 04-26-2021 13:30-0500 Respiratory rate 17 /min Suhas Garrett Other [facility] Other 04-26-2021 13:30-0500 SaO2% (BldA) [Mass fraction] 98 % Suhas Ugo Other [facility] Other 04-26-2021 13:30-0500 Systolic blood pressure 120 mm[Hg] Suhas Garrett Other [facility] Other Encounters Encounter Date Encounter Type Care Provider Facility Start: 07-28-2024 End: 07-28-2024 ambulatory Suhas Garrett Facility:[facility] Start: 05-25-2024 End: 05-25-2024 ambulatory Suhas Garrett Facility:[facility] Start: 04-16-2024 End: 04-16-2024 ambulatory [facility] Start: 02-23-2024 End: 02-23-2024 ambulatory Gloria Weston MD Facility:[facility] Start: 02-11-2024 End: 02-11-2024 ambulatory [facility] Start: 11-24-2023 End: 11-24-2023 ambulatory Gloria Weston MD Facility:[facility] Start: 11-17-2023 End: 11-17-2023 ambulatory Gloria Weston MD Facility:[facility] Start: 10-20-2023 End: 10-20-2023 ambulatory Gloria Weston MD Facility:[facility] Start: 10-14-2023 End: 10-14-2023 ambulatory Suhas Garrett Facility:[facility] Start: 09-29-2023 End: 09-29-2023 ambulatory Gloria Weston MD Facility:[facility] Start: 09-08-2023 End: 09-08-2023 ambulatory Andshabana Weston MD Facility:[facility] Start: 09-03-2023 End: 09-03-2023 ambulatory Suhas Garrett Facility:[facility] Start: 08-25-2023 End: 08-25-2023 ambulatory Gloria Weston MD Facility: [facility] Start: 07-18-2023 End: 07-18-2023 ambulatory Suhas Garrett Other [facility] Other Start: 07-18-2023 Telephone encounter Suhas Ugo [facility] Start: 07-15-2023 End: 07-15-2023 ambulatory Suhas Garrett Other [facility] Other Start: 07-15-2023 Telephone encounter Suhas Ugo [facility] Start: 07-10-2023 End: 07-10-2023 ambulatory Suhas Garrett Other [facility] Other Start: 07-10-2023 Telephone encounter Suhasraquel Garrett [facility] Start: 07-07-2023 End: 07-07-2023 ambulatory Suhasraquel Garrett Other [facility] Other Start: 07-07-2023 Telephone encounter Suhasraquel Mayoadan [facility] Start: 07-04-2023 End: 07-04-2023 ambulatory Suhas Gaeladan Other [facility] Other Start: 07-04-2023 Office outpatient vi sit 15 minutes Suhas Garrett [facility] Start: 06-19-2023 Telephone encounter Suhasraquel Garrett [facility] Start: 06-19-2023 End: 06-19-2023 Office outpatient visit 25 minutes Shy Wolf MD Work Phone: [facility] Comment on above: Aortic valve stenosi s, etiology of cardiac valve disease unspecified; Essential hypertension; Hyperlipidemia, unspecified hyperlipidemia type; Never smoked any substance Start: 06-19-2023 End: 06-19-2023 ambulatory SHY WOLF [facility] Other Start: 05-30-2023 End: 05-30-2023 ambulatory Suhas Garrett Other [facility] Other Start: 05-30-2023 Office outpatient vi sit 25 minutes Suhas Garrett [facility] Start: 05-28-2023 End: 05-28-2023 ambulatory Suhas Garrett Other [facility] Other Start: 05-28-2023 Telephone encounter Suhas Garrett [facility] Start: 04-23-2023 End: 04-23-2023 ambulatory Suhas Garrett Other [facility] Other Start: 04-23-2023 Telephone encounter Suhas Garrett [facility] Start: 04-18-2023 End: 04-18-2023 ambulatory Suhas Garrett Other [facility] Other Start: 04-18-2023 Telephone encounter Suhas Garrett [facility] Start: 03-02-2023 Chart Update Suhas Garrett Work Phone: [place] [address] [place] Work Phone: Start: 02-28-2023 End: 02-28-2023 ambulatory Suhas Garrett Other [facility] Other Start: 02-28-2023 Office outpatient vi sit 15 minutes Suhas Garrett [facility] Start: 02-26-[address] Suhas Garrett Facility:[id number] Start: 01-27-2023 End: 01-27-2023 ambulatory Suhas Garrett Other [facility] Other Start: 01-27-2023 Telephone encounter Suhas aGrrett [facility] Start: 12-24-2022 Office outpatient vi sit 25 minutes Suhas Garrett Work Phone: [facility] [address] DO Work Phone: Start: 12-24-[address] Shy Wolf Facility: Start: 12-06-2022 End: 12-06-2022 ambulatory Suhas Garrett Other [facility] Other Start: 12-06-2022 Office outpatient vi sit 15 minutes Suhas Garrett [facility] Start: 09-20-2022 End: 09-20-2022 ambulatory Suhas Garrett Other [facility] Other Start: 09-20-2022 Office outpatient vi sit 15 minutes Suhas Garrett [facility] Start: 08-14-2022 End: 08-14-2022 ambulatory Suhas Garrett Other [facility] Other Start: 08-14-2022 Telephone encounter Suhas Garrett [facility] Start: 07-22-2022 End: 07-22-2022 ambulatory Suhas Garrett Other [facility] Other Start: 07-22-2022 Office outpatient vi sit 15 minutes Suhas Mayos [facility] Start: 04-17-2022 End: 04-17-2022 ambulatory Suhas Garrett Other [facility] Other Start: 04-17-2022 Office outpatient vi sit 15 minutes Suhas Mayos [facility] Start: 04-10-2022 End: 04-10-2022 ambulatory Suhas Garrett Other [facility] Other Start: 04-10-2022 Telephone encounter Suhas Ugo [facility] Start: 04-03-2022 End: 04-03-2022 ambulatory Suhas Garrett Other [facility] Other Start: 04-03-2022 Telephone encounter Suhas Garrett [facility] Start: 04-02-2022 End: 04-02-2022 ambulatory Suhas Garrett Other [facility] Other Start: 04-02-2022 Telephone encounter Suhas Garrett [facility] Start: 02-26-2022 End: 02-26-2022 ambulatory Suhas Garrett Other [facility] Other Start: 02-26-2022 Telephone encounter Suhas Garrett [facility] Start: 02-25-2022 End: 02-25-2022 ambulatory Suhas Garrett Other [facility] Other Start: 02-25-2022 Telephone encounter Suhas Garrett [facility] Start: 02-22-2022 End: 02-22-2022 ambulatory Suhas Garrett Other [facility] Other Start: 02-22-2022 Office outpatient vi sit 25 minutes Suhas Garrett [facility] Start: 02-21-2022 Patient encounter procedure Suhas Garrett Work Phone: [facility] [address] [place] Work Phone: Start: 02-20-2022 End: 02-21-2022 ambulatory MAYO CARBAJAL Facility: Start: 02-14-2022 End: 02-14-2022 ambulatory Suhas Garrett Other [facility] Other Start: 02-14-2022 Office outpatient vi sit 25 minutes Suhas Garrett [facility] Start: 01-11-2022 End: 01-11-2022 ambulatory Suhas Garrett Other [facility] Other Start: 01-11-2022 Nursing evaluation o f patient and report Suhas Garrett [facility] Start: 01-11-2022 Telephone encounter Suhas Garrett [facility] Start: 12-26-2021 Office outpatient vi sit 10 minutes Suhas Garrett Work Phone: [facility] [address] DO Work Phone: Start: 12-26-[address] Suhas Garrett Facility: Start: 12-20-2021 End: 12-20-2021 ambulatory Suhas Garrett Other [facility] Other Start: 12-20-2021 Telephone encounter [facility] Start: 12-13-2021 Office outpatient vi sit 25 minutes Suhas Garrett Work Phone: [facility] Work Phone: Start: 11-02-2021 End: 11-02-2021 ambulatory Suhas Garrett Other [facility] Other Start: 11-02-2021 Telephone encounter Suhas Garrett [facility] Start: 10-01-2021 End: 10-01-2021 ambulatory Suhas Garrett Other [facility] Other Start: 10-01-2021 Office outpatient vi sit 15 minutes Suhas Garrett [facility] Start: 09-10-2021 End: 09-10-2021 ambulatory Suhas Garrett Other [facility] Other Start: 09-10-2021 Telephone encounter Suhas Garrett [facility] Start: 08-20-2021 End: 08-20-2021 ambulatory Suhas Garrett Other [facility] Other Start: 08-20-2021 Telephone encounter [facility] Start: 08-02-2021 End: 08-02-2021 ambulatory Suhas Garrett Other [facility] Other Start: 08-02-2021 Office outpatient vi sit 15 minutes [facility] Start: 07-25-2021 End: 07-25-2021 ambulatory Suhas Garrett Other [facility] Other Start: 07-25-2021 Telephone encounter Suhas Garrett [facility] Start: 05-08-2021 End: 05-08-2021 ambulatory Suhas Garrett Other [facility] Other Start: 05-08-2021 Telephone encounter Suhas Garrett [facility] Start: 04-26-2021 End: 04-26-2021 ambulatory Suhas Garrett Other [facility] Other Start: 04-26-2021 Office outpatient vi sit 25 minutes Suhas Garrett [facility] Procedures Date Procedure Procedure Detail Performing [...] DTaP/Tdap/Td Vaccines (2 - Td or Tdap) [facility] Start: 03-16-2024 End: 03-16-2024 Patient encounter procedure 03/16/2024 11:20 AM EDT Office Visit [facility] [address] [place] [address] Shy Wolf MD [address] [place] [address] [facility] Start: 02-11-2024 End: 02-11-2024 Patient encounter procedure 02/11/2024 12:30 PM EDT Appointment [facility] [address] [place] [address] [facility] Start: 02-08-2024 End: 06-19-2025 [facility] Transthoracic Transthoracic Echo (TTE) Complete Echocardiography Routine Aortic valve stenosis, etiology of cardiac valve disease unspecified Expected: 02/08/2024 (Approximate), Expires: 06/19/2025 [facility] Service Area Work Phone: Comment on above: Expected: 02/08/2024 (Approximate), Expires: 06/19/2025 Start: 06-19-2023 FUV, Provider: Shy Wolf, Status: Pen, Time: 11:00 AM FUV, Provider: Shy Wolf, Status: Pen, [facility]: [facility] Work [facility]: Start: 05-28-2023 COVID-19 Vaccine (5 - Moderna series) COVID-19 Vaccine (5 - Moderna series) [facility] Start: 02-26-2023 ECHO, Provider: SAMUEL HHVI ULTRASOUND , Status: Pen, Time: 10:45 AM ECHO, Provider: SAMUEL YII ULTRASOUND , Status: Pen, Time: 10:45 AM [facility] DO Work Phone: Start: 12-24-2022 FUV, Provider: Shy Wolf, Status: Pen, Time: 11:20 AM FUV, Provider: Shy Wolf, Status: Pen, Time: 11:20 AM [facility] Work Phone: Start: 02-21-2022 CAROTID, Provider: SAMUEL HHVI ULTRASOUND 01,[id number], Status: Pen, Time: 12:30 PM CAROTID, Provider: SAMEUL HHVI ULTRASOUND 01,[id number], Status: Pen, Time: 12:30 PM [facility] Work Phone: Start: 02-21-2022 ECHO, Provider: SAMUEL HHVI ULTRASOUND 01,[id number], Status: Pen, Time: 10:45 AM ECHO, Provider: SAMUEL HHVI ULTRASOUND 01,[id number], Status: Pen, Time: 10:45 AM [facility] Work Phone: Start: 01-17-2022 CAROTID, Provider: SAMUEL HHVI ULTRASOUND 01,[id number], Status: Pen, Time: 2:30 PM CAROTID, Provider: SAMUEL HHVI ULTRASOUND 01,[id number], Status: Pen, Time: 2:30 PM [facility] Work Phone: Start: 01-17-2022 ECHO, Provider: SAMUEL HHVI ULTRASOUND 01,[id number], Status: Pen, Time: 1:30 PM ECHO, Provider: SAMUEL HHVI ULTRASOUND 01,[id number], Status: Pen, Time: 1:30 PM [facility] Work Phone: Start: 12-26-2021 NURSEVST, Provider: MAGDA DANIEL YARN HANDLER 1,[id number], Status: Pen, Time: 11:00 AM NURSEVST, Provider: MAGDA DANIEL YARN HANDLER 1,[id number], Status: Pen, Time: 11:00 AM [facility] Work Phone: Start: 1935 Lipid panel Lipid Panel [facility] Start: 1935 Medicare Annual Wellness Visit Medicare Annual Wellness Visit (AWV) [facility] Start: 1935 Thyroid stimulating hormone measurement TSH Level [facility] Immunizations Immunization Date Immunization Notes Care Provider Raciel camacho 04-17-2022 Moderna COVID-19 Bivalent 50 MCG/0.5ML Intramuscular Suspension Suhas Garrett Work Phone: [facility] [address] DO Work Phone: 03-21-2022 Fluad Quadrivalent 0 .5 ML Intramuscular Prefilled Syringe [facility] Work Phone: 03-21-2022 influenza, seasonal, injectable Suhas Garrett Other [facility] Other 11-14-2021 Moderna COVID-19 Vaccine 100 MCG/0.5ML Intramuscular Suspension Suhas Garrett Work Phone: [facility] Work Phone: 04-05-2021 Moderna COVID-19 Vaccine 100 MCG/0.5ML Intramuscular Suspension Suhas P Ugo Work Phone: [facility] Work Phone: 03-19-2021 influenza, seasonal, injectable Suhas Garrett Other [facility] Other 08-08-2020 Moderna COVID-19 Vaccine 100 MCG/0.5ML Intramuscular Suspension Suhas P Ugo Work Phone: [facility] Work Phone: 07-11-2020 Moderna COVID-19 Vaccine 100 MCG/0.5ML Intramuscular Suspension Suhas P Gaels Work Phone: [facility] Work Phone: 04-28-2020 pneumococcal polysaccharide vaccine, 23 valent Suhas Garrett Other [facility] Other 03-06-2020 Seasonal trivalent influenza vaccine, adjuvanted, preservative free Suhas P Gaels Work Phone: [facility] Work Phone: 03-06-2020 influenza, seasonal, injectable Suhasraquel Mayos Other [facility] Other 02-08-2020 influenza virus vaccine, unspecified formulation Suhas P Kuns Work Phone: [facility] Work Phone: 02-08-2020 influenza, seasonal, injectable Suhas Kuns Other [facility] Other 05-04-2019 zoster vaccine recombinant Suhas Mayos Other [facility] Other 03-09-2019 influenza, high dose seasonal, preservative-free Suhas P Kuns Work Phone: [facility] Work Phone: 03-04-2019 influenza, seasonal, injectable Suhas Mayos Other [facility] Other 02-04-2019 zoster vaccine recombinant Suhas Mayos Other [facility] Other 05-12-2018 tetanus toxoid, redu bety diphtheria toxoid, and acellular pertussis vaccine, adsorbed Suhas Mayos Other [facility] Other 03-16-2018 Seasonal trivalent influenza vaccine, adjuvanted, preservative free Shy Wolf MD Work Phone: [facility] Work Phone: 03-09-2018 influenza virus vaccine, unspecified formulation Suhas P Kuns Work Phone: [facility] Work Phone: 04-09-2017 influenza virus vaccine, unspecified formulation Suhas P Kuns Work Phone: [facility] Work Phone: 03-28-2017 Seasonal trivalent influenza vaccine, adjuvanted, preservative free Suhas P Ugo Work Phone: [facility] Work Phone: 05-23-2016 pneumococcal conjuga te vaccine, 13 valent Suhas Kuns Other [facility] Other 04-01-2016 Seasonal trivalent influenza vaccine, adjuvanted, preservative free Suhas P Gaels Work Phone: [facility] Work Phone: 03-09-2016 influenza virus vaccine, unspecified formulation Suhas Dalton Garrett Work Phone: [facility] Work Phone: 03-09-2016 pneumococcal conjuga te vaccine, 13 valent Suhas P Kuns Work Phone: [facility] Work Phone: 04-07-2015 influenza, injectabl e, quadrivalent, contains preservative Suhas P Ugo Work Phone: [facility] Work Phone: 03-09-2015 influenza virus vaccine, unspecified formulation Suhas P Ugo Work Phone: [facility] Work Phone: 04-05-2014 influenza, seasonal, injectable, preservative free Suhas P Gaels Work Phone: [facility] Work Phone: 03-09-2014 influenza virus vaccine, whole virus Suhas Garrett Work Phone: [facility] Work Phone: 03-23-2013 influenza, seasonal, injectable Suhas P Gaels Work Phone: [facility] Work Phone: 03-09-2013 influenza virus vaccine, unspecified formulation Suhas P Ugo Work Phone: [facility] Work Phone: 04-14-2012 influenza, injectabl e, quadrivalent, contains preservative Suhas Garrett Other [facility] Other 06-09-2011 influenza virus vaccine, unspecified formulation Suhas Garrett Work Phone: [facility] Work Phone: 06-09-2010 influenza virus vaccine, unspecified formulation Suhas Garrett Work Phone: [facility] Work Phone: 06-09-2009 influenza virus vaccine, unspecified formulation Suhas Garrett Work Phone: [facility] Work Phone: 05-30-2009 novel [id number], preservative-free, injectable Suhas Garrett Work Phone: [facility] Work Phone: 10-19-2007 varicella virus vaccine Belkys Garrett Work Phone: [facility] Work Phone: 06-09-2006 pneumococcal polysaccharide vaccine, 23 valent Suhas Garrett Work Phone: [facility] Work Phone: Payers Date Payer Category Payer Self-pay 2022 Private Health Insurance [id number] 2001 Medicare MEDICARE MEDICAR E RAILROAD [id number] 2001-Present [address] [place] [address] [id number] 2001 Unknown 1959 Medicare [id number] 1959 Private Health Insurance [id number] 1936 Unknown [id number] .593 1936 Unknown [id number] .356 1936 Unknown [id number] [id number] .356 1936 Unknown [id number] [id number] .1068 1936 Unknown [id number] [id number] .1246 1936 Unknown [id number] [id number] .196 1936 Unknown [id number] 2.840.1.261130.3.579.2 .196 1936 Unknown [id number] 2.840.1.901467.3.579.2 .196 1936 Unknown [id number] 2.840.1.669394.3.579.2 .196 1936 Unknown [id number] 2.840.1.468935.3.579.2 .196 1936 Unknown [id number] 2.840.1.641115.3.579.2 .196 1936 Unknown [id number] 2.840.1.076192.3.579.2 .196 1936 Unknown [id number] .1244 1936 Unknown [id number] [id number] .1244 Unknown [id number] [id number] .531 Unknown [id number] 2.16.840.1.703126.3.579.2 .531 Unknown [id number] [id number] .531 Unknown [id number] [id number] .531 Social History Date Type Detail Facility Unknown if ever smoked [facility] Other Start: 06-19-2023 Sex Assigned At [facility] Other Start: 06-19-2023 Caffeine use Caffeine use [facility] Work Phone: Start: 06-19-2023 Tobacco smoking status NHIS Never smoked tobacco [facility] Work Phone: Start: 06-19-2023 Tobacco use and exposure Smokeless tobacco non-user [facility] Work Phone: Start: 1935 [facility] Start: 06-09-2023 End: 06-19-2023 Exposure to SARS-CoV-2 (event) Not sure [facility] Clinical Notes 02-15-2015 to 07-18-2023 Note Date & Type Note Facility 07-18-2023 Evaluation note Encounter Date Diagnosis Assessment Notes Jul, PMR (polymya lgia rheumati ca) (ICD-10 - M35.3) [facility] Other 02-06-2024 Evaluation note* Encounter Date Diagnosis Assessment Notes Treatment Notes Treatment Clinical Notes Jul, PMR (polymyalgia rheumatica) (ICD-10 - M35.3) [facility] Other 02-01-2024 Evaluation note* Encounter Date Diagnosis Assessment Notes Treatment Notes Treatment Clinical Notes Jul, Hypothyroidism (ICD-10 - E03.9) [facility] Other 01-29-2024 Evaluation note* Encounter Date Diagnosis Assessment Notes Treatment Notes Treatment Clinical Notes Jun, Hypothyroidism (ICD- 10 - E03.9) Jun, Hyperthyroidism (ICD-10 - E05.90) [facility] Other 01-26-2024 Evaluation note* Encounter Date Diagnosis [...] medications in combination with eachother. Also discussed manager intermediate steriod use in regards to her condition. [...] requires sooner she is welcome to call. [facility] Other 01-11-2024 Evaluation note* Encounter Date Diagnosis Assessment Notes Treatment Notes Treatment Clinical Notes Jun, PMR (polymyalgia rheumatica) (ICD-10 - M35.3) [facility] Other 01-11-2024 History of Present illness Narrative* [...] is being tapered gradually Shy Wolf MD, [facility] Review of Systems All other systems [...] of Shy Wolf MD. [facility] Work Phone: 1(231) 958-457601-11-2024 Instructions* Patient Instructions* Yevgeniy Cortez MA - [...] time of your visit. [facility] Work Phone: 1(475) 183-889212-22-2023 Evaluation note* Encounter Date Diagnosis Assessment Notes [...] recommend the patient get the RSV vaccine. [facility] Other 12-20-2023 Evaluation note* Encounter Date Diagnosis Assessment Notes Treatment Notes Treatment Clinical Notes May, Hypertension (ICD-10 - I10) May, Hypothyroidism (ICD-10 - E03.9) [facility] Other 11-10-2023 Evaluation note* Encounter Date Diagnosis Assessment Notes Treatment Notes Treatment Clinical Notes Apr, PMR (polymyalgia rheumatica) (ICD-10 - M35.3) [facility] Other 09-22-2023 Evaluation note* Encounter Date Diagnosis Assessment Notes Treatment Notes Treatment Clinical Notes Feb, PMR (polymyalgia rheumatica) (ICD-10 - M35.3) She was encouraged to take 2.5mg daily. Patient is agreeable. Feb, Hypertension (ICD-10 - I10) Blood pressure is satisfactory, she is to follow with cardiology as scheduled. [facility] Other 08-21-2023 Evaluation note* Encounter Date Diagnosis Assessment Notes Treatment Notes Treatment Clinical Notes Jan, Hypertension (ICD-10 - I10) [facility] Other 06-30-2023 Evaluation note* Encounter Date Diagnosis [...] would like to do. Patient is agreeable. [facility] Other 04-14-2023 Evaluation note* Encounter Date Diagnosis [...] tablets daily. We will continue to monitor. [facility] Other 03-08-2023 Evaluation note* Encounter Date Diagnosis Assessment Notes Treatment Notes Treatment Clinical Notes Aug, PMR (polymyalgia rheumatica) (ICD-10 - M35.3) [facility] Other 02-13-2023 Evaluation note* Encounter Date Diagnosis [...] states she has an upcoming appointment with print graphic designer and she will discuss making medication changes at that time. [facility] Other 11-09-2022 Evaluation note* Encounter Date Diagnosis [...] can cut Apr, Hyperlipidemia (ICD-10 - E78.5) [facility] Other 11-02-2022 Evaluation note* Encounter Date Diagnosis Assessment Notes Treatment Notes Treatment Clinical Notes Apr, PMR (polymyalgia rheumatica) (ICD-10 - M35.3) [facility] Other 10-26-2022 Evaluation note* Encounter Date Diagnosis Assessment Notes Treatment Notes Treatment Clinical Notes Mar, Lumbar back pain (ICD-10 - M54.50) [facility] Other 09-20-2022 Evaluation note* Encounter Date Diagnosis Assessment Notes Treatment Notes Treatment Clinical Notes Feb, Elevated liver function tests (ICD-10 - R79.89) [facility] Other 09-16-2022 Evaluation note* Encounter Date Diagnosis Assessment Notes Treatment Notes Treatment Clinical Notes Feb, Acute pain of left shoulder (ICD-10 - M25.512) [facility] report reviewed from 02/20/22 . The [...] pain (ICD-10 - R10.13) The patient advised Chase could be causing her GI upset , [...] month Boniva at her next office visit. [facility] Other 09-08-2022 Evaluation note* Encounter Date Diagnosis [...] (ICD-10 - M85.80) Noted on Lumbar x-ray. [facility] Other 08-05-2022 Evaluation note* Encounter Date Diagnosis Assessment Notes Treatment Notes Treatment Clinical Notes Jan, COVID-19 (ICD-10 - U07.1) [facility] Other 08-05-2022 Evaluation note* Encounter Date Diagnosis Assessment Notes Treatment Notes Treatment Clinical Notes Jan, Cough (ICD-10 - R05.9) In house covid test is positive. Treatment plan discussed in TE. [facility] Other 07-14-2022 Evaluation note* Encounter Date Diagnosis Assessment Notes Treatment Notes Treatment Clinical Notes Dec, PMR (polymyalgia rheumatica) (ICD-10 - M35.3) [facility] Other 05-27-2022 Evaluation note* Encounter Date Diagnosis Assessment Notes Treatment Notes Treatment Clinical Notes October, PMR (polymyalgia rheumatica) (ICD-10 - M35.3) [facility] Other 04-25-2022 Evaluation note* Encounter Date Diagnosis [...] The patient encourged to continue following with print graphic designer annually in December as scheduled. I did forward a copy of most current blood work results . [facility] Other 04-04-2022 Evaluation note* Encounter Date Diagnosis Assessment Notes Treatment Notes Treatment Clinical Notes Sep, PMR (polymyalgia rheumatica) (ICD-10 - M35.3) Sep, Hypertension (ICD-10 - I10) [facility] Other 02-24-2022 Evaluation note* Encounter Date Diagnosis [...] if needed. We will continue to montior. [facility] Other 02-16-2022 Evaluation note* Encounter Date Diagnosis Assessment Notes Treatment Notes Treatment Clinical Notes Jul, PMR (polymyalgia rheumatica) (ICD-10 - M35.3) [facility] Other 11-30-2021 Evaluation note* Encounter Date Diagnosis Assessment Notes Treatment Notes Treatment Clinical Notes Apr, PMR (polymyalgia rheumatica) (ICD-10 - M35.3) [facility] Other 11-18-2021 Evaluation note* Encounter Date Diagnosis [...] Hypothyroidism (ICD-10 - E03.9) Blood work ordered. [facility] Other [id number] History general Narrative - Reported* Type Description Date Medical History Shingles Medical History 2010, 02-15-15-mammogram-negativ e Medical History [id number], repea t in 3 yrs Medical History 03/2017- colonoscopy- normal Medical History f/u with cardiology NO Medical History ECHO 09/2016 Surgical History Appendectomy Surgical History Gallbladder Removal Surgical History Ovarian Cyst Removal Surgical History Coccyx repair Surgical History Cataracts Bilateral Eyes Surgical History thyroidectomy Dr. Forbes 10/14/2019 Hospitalization History Childbirth x5 Hospitalization History See Above [facility] Other Evaluation noteNo InformationNort [employer] Other Evaluation note* Diagnosis Aortic valve stenosis, etiology of cardiac valve disease unspecified Essential hypertension Unspecified essential hypertension Hyperlipidemia, unspecified hyperlipidemia type Never smoked any substance documented in this encounter [facility] Work Phone: Chief Complaint * [...] being tapered gradually * Shy Wolf MD, [facility] Family History No Family History Records [...] PMR (polymyalgia rhe umatica) (M35.3) Referral Organization [facility] Family Medicin e [place] Referring Provider First Name Suhas Referring Provider Last Name Gaeladan Referring Provider Specialty Family Prac sukhjinder Referred Organization [facility] Referred Address [address] [place], [place],[address] Referred Provider Specialty Rheumatology Referral Priority Routine [...] disease unspecified Procedures Transthoracic Echo (TTE) Complete IA ECHO TTHRC R-T 2D W/WOM-MODE COMPL SPEC&COLR D Shy Wolf MD [address] [facility] [address], [address] [address] Referral ID Status Reason Start Date Expiration Date Visits Requested Visits Authorized Pending Review Perform Procedure 06/19/2023 06/18/2024 1 1 Specialty Diagnoses / Procedures Referred By Contac t Referred To Contact Cardiology Diagnoses Aortic valve stenosis, etiology of cardiac valve disease unspecified Procedures Follow Up In Cardiology Shy Wolf MD [address] [facility] [address], [address] [place] [address] Shy Wolf MD [address] [facility] [address], [address] [place] [address] Referral ID Status Reason Start Date Expiration Date V isits Requested Visits Authorized [id number] Authorized 06/19/2023 06/18/2024 1 1 Additional Source Comments REASON FOR VISIT (unrecogniz ed section and content) Reason Comments Follow-up 6m INFORMATION SOURCE (unrecogn ized section and content) DATE CREATED AUTHOR 03/06/2022 [facility] DATE CREATED AUTHOR AUTHOR'S ORGANIZ ATION 12/25/2022 [facility] DATE CREATED AUTHOR AUTHOR'S ORGANIZ ATION 12/25/2022 [facility] DATE CREATED AUTHOR AUTHOR'S ORGANIZ ATION 03/03/2023 [facility] DATE CREATED AUTHOR AUTHOR'S ORGANIZ ATION 02/17/2024 [facility] DATE CREATED AUTHOR AUTHOR'S ORGANIZ ATION 02/29/2024 [facility] DATE CREATED AUTHOR AUTHOR'S ORGANIZ ATION 04/18/2024 [facility] DATE CREATED AUTHOR AUTHOR'S ORGANIZ ATION 07/29/2024 [facility] Care Teams (unrecognized sec tion and content) Sourcing Analyst Relationship Specialty Start Date End Date Suhas [...] BE BASED ON THE PRIMARY CLINICAL RECORDS. [facility] [employer] [facility]. provides no warranty or guarantee of the accuracy or completeness of information in this document.
--- NOTE | 2024-08-30 12:45 | ECG_ITS ---
The [facility] Test Date: 2024-08-30 Pat Name: LAVONNE VILLATORO Department: Room: - Gender: Female Drill Operator: : [id number] Requested By: [id number] Order Number: [id number] Reading MD: RADHA CLEMENTS Measurements Intervals [place] Rate: 57 P: 58 GA: 170 QRS: 54 QRSD: 84 T: 62 QT: 476 QTc: 471 Interpretive Statements 1100 Sinus rhythm 8304 Long QTc interval 9150 abnormal ECG Compared to ECG 06/30/2023 10:02:25 No significant changes Electronically Signed On 08-30-2024 14:44:41 EDT by RADHA CLEMENTS
[2024-08-30 13:09] LABS: Basophils Percent Auto 0.6 % (0.2-2.0); Eosinophils Absolute Auto 0.1 10^3/uL (0.0-0.7); Eosinophils Percent Auto 0.9 % (0.9-7.0); Hematocrit 39.8 % (36.0-48.0); Hemoglobin 13.5 g/dL (12.0-16.0); Immature Granulocytes Abs Auto 0.02 10^3/uL (0.00-0.03); Immature Granulocytes Pct Auto 0.3 % (0.0-0.5); Lymphocytes Absolute Auto 1.6 10^3/uL (1.2-3.8); Lymphocytes Percent Auto 24.1 % (20.5-60.0); Mean Corpuscular HGB Conc 33.9 g/dL (29.9-35.2); Mean Corpuscular Volume 94.3 fL (81.0-99.0); Mean Platelet Volume 10.8 fL (9.5-13.5); Monocytes Absolute Auto 0.4 10^3/uL (0.3-0.8); Monocytes Percent Auto 5.3 % (1.7-12.0); Neutrophils Absolute Auto 4.6 10^3/uL (1.4-6.5); Neutrophils Percent Auto 68.8 % (43.0-75.0); Platelet Count 225 10^3/uL (150-450); Red Blood Count 4.22 10^6/uL (4.20-5.40); Red Cell Distribution Width 12.9 % (11.0-15.0); White Blood Count 6.8 10^3/uL (4.0-11.0)
--- NOTE | 2024-08-30 13:24 | ED.GENADUL1 ---
HPI HPI - General Adult General Chief complaint: Weakness Stated complaint: DIZZINESS HIGH BLOOD PRESSURE Time Seen by Provider: 08/30/24 13:08 Source: patient Mode of arrival: walk-in History of Present Illness HPI narrative: Patient is an 89-year-old female brought to the emergency department for an elevated blood pressure reading that was noted at her pain management appointment. Patient has a history of chronic pain. She was seeing a pain medicine physician for injections in her lumbar spine today. She states that she told them she was not feeling well and they checked her blood pressure and it was elevated at 220/98. She was brought to the emergency department for evaluation. Patient states she has been dizzy for the last week, she reports a sensation of spinning that is worse with change in the position of her head. She states she has had vertigo in the past but feels this is different. She has no headache or visual changes. She denies chest pain. Her son at bedside believes that she has been short of breath today. History is very difficult as the patient needs to be redirected multiple times. She states that her primary care provider told her to stop her Norvasc last week because of the dizziness although she was not evaluated in the office. She states she took her 2 other blood pressure medications today. Related Data Home Medications ?Medication ?Instructions ?Recorded ?Confirmed acetaminophen 650 mg 650 mg PO Q8H PRN pain 08/25/23 11/24/23 tablet,extended release (8 Hour Pain Reliever) amlodipine 10 mg tablet (Norvasc) 10 mg PO DAILY 08/25/23 11/24/23 aspirin 81 mg capsule 81 mg PO DAILY 08/25/23 11/24/23 carvedilol 6.25 mg tablet 6.25 mg PO Q12H 08/25/23 11/24/23 levothyroxine 100 mcg tablet 100 mcg PO DAILY 08/25/23 11/24/23 losartan 100 1 tab PO DAILY 08/25/23 11/24/23 mg-hydrochlorothiazide 12.5 mg tablet multivitamin (Daily Multi-Vitamin 1 tab PO DAILY 08/25/23 11/24/23 tablet) omega 9-ybv-wio-fish oil 1,000 mg 1 cap PO DAILY 08/25/23 11/24/23 (120 mg-180 mg) capsule (Fish Oil) calcium carbonate (Calcium 600) 600 mg PO DAILY 09/29/23 11/24/23 prednisone 2.5 mg tablet mg 11/17/23 Previous Rx's ?Medication ?Instructions ?Recorded oxycodone-acetaminophen 5 mg-325 1 tab PO BID PRN pain #60 tabs 08/05/24 mg tablet (Percocet) meclizine 25 mg chewable tablet 25 mg PO QID PRN dizziness #12 tabs 08/30/24 (Antivert) ondansetron 4 mg disintegrating 4 mg PO Q6H PRN nausea and 08/30/24 tablet vomiting #12 tabs Allergies Allergy/AdvReac Type Severity Reaction Status Date / Time amoxicillin Allergy Mild Rash Verified 11/24/23 11:09 divalproex sodium (From Allergy Unknown Verified 11/24/23 11:09 Depakote) hydrocodone Allergy Unknown Verified 11/24/23 11:09 phenytoin (From Dilantin) Allergy Unknown Verified 11/24/23 11:09 alendronate sodium (From AdvReac eye pain Verified 11/24/23 11:09 Fosamax) Opioid HPI Opioid Management Most Recent Opioid Data: Last Pain Scale 10 11/24/23 11:07 11/24/23 Review of Systems ROS Constitutional Denies: fever or chills Ears, nose, mouth, and throat Denies: throat pain or nasal congestion Cardiovascular Denies: chest pain Respiratory Reports: shortness of breath; Denies: cough Gastrointestinal Reports: nausea; Denies: vomiting Musculoskeletal Denies: back pain or neck pain Integumentary/Breast Denies: rash Neurological Reports: dizziness; Denies: headache, numbness in extremities or weakness in extremities Hematologic/Lymphatic Denies: easy bruising or easy bleeding PFSH [facility] Medical History Polymyalgia rheumatica ?M35.3 - Polymyalgia rheumatica (ICD-10) Hyperthyroidism ?E05.90 - Thyrotoxicosis, unspecified without thyrotoxic crisis or storm (ICD-10) Heart murmur ?R01.1 - Cardiac murmur, unspecified (ICD-10) HTN (hypertension) ?I10 - Essential (primary) hypertension (ICD-10) Surgical History 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 - Postprocedural hypothyroidism (ICD-10) Hx of cholecystectomy ?Z90.49 - Acquired absence of other specified parts of digestive tract (ICD-10) History of ovarian cystectomy ?Z98.890 - Other specified postprocedural states (ICD-10) ?Z87.42 - Personal history of other diseases of the female genital tract (ICD-10) History of appendectomy ?Z90.49 - Acquired absence of other specified parts of digestive tract (ICD-10) Social History Little interest or pleasure in doing things: not at all Feeling down, depressed, or hopeless: not at all Exam Narrative Exam Narrative: Gen.: Awake, alert, in no distress Head: Normocephalic, atraumatic ENT: Moist mucous membranes, bilateral TMs clear Respiratory: No respiratory distress, lungs clear bilaterally Cardio: Regular rate and rhythm Gastrointestinal: Abdomen is soft, nondistended and nontender to palpation Extremities: Moves extremities equally, no pedal edema Psych: Normal mood and affect Neuro: No focal neuro deficit Skin: Warm, dry, intact Constitutional Vital Signs, click to edit/add: Last Vital Signs Temp 98.1 F 08/30/24 12:36 Pulse 50 L 08/30/24 15:39 Resp 20 08/30/24 15:39 BP 168/63 H 08/30/24 15:39 Pulse Ox 97 08/30/24 15:39 O2 Del Method Room Air 08/30/24 15:39 Course Vital Signs Vital signs: Vital Signs Temperature 98.1 F 08/30/24 12:36 Pulse Rate 66 08/30/24 12:36 Respiratory Rate 18 08/30/24 12:36 Blood Pressure 230/86 H 08/30/24 12:36 Pulse Oximetry 100 08/30/24 12:36 Oxygen Delivery Method Room Air 08/30/24 12:36 Temperature 98.1 F 08/30/24 12:36 Pulse Rate 50 L 08/30/24 15:39 Respiratory Rate 20 08/30/24 15:39 Blood Pressure 168/63 H 08/30/24 15:39 Pulse Oximetry 97 08/30/24 15:39 Oxygen Delivery Method Room Air 08/30/24 15:39 Medical Decision Making MDM Narrative Medical decision making narrative: patient was medicated with 0.5 mg of IV Ativan with significant relaxation. CT of the brain, chest x-ray, EKG, lab studies are unremarkable. Patient has no complaints of chest pain. Her blood pressure naturally came down, we did not give any antihypertensives in the emergency department. She ambulated to the bathroom. She reported still feeling dizzy and was given Solu-Medrol and Antivert for suspected vertigo. I discussed the results with the patient and her son at bedside. She was offered an observation admission for dizziness if she did not feel comfortable going home. She states she feels comfortable going home and would like to try outpatient management. Antivert and Zofran given for home, follow-up closely with PCP for adjustment of blood pressure medications as needed and return to the ER if symptoms change or worsen. Patient's son is comfortable with this. SUPERVISED APC VISIT, PHYSICIAN ATTESTATION: Based on the medical record the care appears appropriate. ? Medical Records Medical records reviewed: Yes I reviewed the patient's medical records Lab Data Lab results reviewed: Yes I reviewed the patient's lab results Labs: Lab Results 08/30/24 08/30/24 Range/Units 12:56 15:00 WBC 6.8 (4.0-11.0) 10^3/uL RBC 4.22 (4.20-5.40) 10^6/uL Hgb 13.5 (12.0-16.0) g/dL Hct 39.8 (36.0-48.0) % MCV 94.3 (81.0-99.0) fL MCH 32.0 (26.7-34.0) pg MCHC 33.9 (29.9-35.2) g/dL RDW 12.9 (11.0-15.0) % Plt Count 225 (150-450) 10^3/uL MPV 10.8 (9.5-13.5) fL Neut % (Auto) 68.8 (43.0-75.0) % Lymph % (Auto) 24.1 (20.5-60.0) % Mccormick % (Auto) 5.3 (1.7-12.0) % Eos % (Auto) 0.9 (0.9-7.0) % Baso % (Auto) 0.6 (0.2-2.0) % Neut # (Auto) 4.6 (1.4-6.5) 10^3/uL Lymph # (Auto) 1.6 (1.2-3.8) 10^3/uL Mccormick # (Auto) 0.4 (0.3-0.8) 10^3/uL Eos # (Auto) 0.1 (0.0-0.7) 10^3/uL Baso # (Auto) 0.0 (0.0-0.1) 10^3/uL Abs Immat Gran (auto) 0.02 (0.00-0.03) 10^3/uL Imm/Tot Granulo (auto) 0.3 (0.0-0.5) % Sodium 143 (136-145) mmol/L Potassium 3.5 (3.5-5.1) mmol/L Chloride 107 (98-107) mmol/L Carbon Dioxide 25.4 (21.0-32.0) mmol/L Anion Gap 14.1 BUN 19.0 H (7.0-18.0) mg/dL Creatinine 0.77 (0.55-1.02) mg/dL Est GFR ( Amer) >60 (>=60 mL/min/1.73m^2) Est GFR (Non-Af Amer) >60 (>=60 mL/min/1.73m^2) BUN/Creatinine Ratio 24.7 Glucose 105 (74-106) mg/dL Calcium 9.9 (8.5-10.1) mg/dL Troponin I High Sens 6.7 (4.0-51.3) pg/mL Urine Color Lt. yellow (YELLOW) Urine Clarity Clear (CLEAR) Urine pH 8.5 (5.0-9.0) Ur Specific [place] 1.015 (1.005-1.025) Urine Protein Negative (NEG/TRACE) mg/dL Urine Glucose (UA) Negative (NEGATIVE) mg/dL Urine Ketones Negative (NEGATIVE) mg/dL Urine Occult Blood Negative (NEGATIVE) Urine Nitrite Negative (NEGATIVE) Urine Bilirubin Negative (NEGATIVE) Urine Urobilinogen 0.2 (0.2-1.0) EU/dL Ur Leukocyte Esterase Negative (NEGATIVE) Urine RBC 0-2 (0-2) #/HPF Urine WBC None seen (NONE SEEN) #/HPF Ur Squamous Epith Cells Rare (NONE/RARE) #/LPF Urine Crystals None seen (None Seen) #/HPF Urine Bacteria None seen (NONE SEEN) #/HPF Urine Casts None seen (NONE SEEN) #/LPF Urine Mucus None seen (NONE SEEN) Ur Culture Indicated? No Imaging Data CT scan - head: Radiologist's impression: CT of the brain, chest x-ray ECG Data Attestation: I personally reviewed and interpreted this ECG as follows: (Normal sinus rhythm at a rate of 57, no acute ST elevation or ectopy. EKG reviewed by attending physician) Discharge Plan Discharge Chief Complaint: Weakness Clinical Impression: Dizziness, Hypertension Patient Disposition: Home, Self-Care Time of Disposition Decision: 15:52 Condition: Good Prescriptions / Home Meds: New ondansetron 4 mg tablet,disintegrating 4 mg PO Q6H PRN (Reason: nausea and vomiting) Qty: 12 0RF meclizine [Antivert] 25 mg tablet,chewable 25 mg PO QID PRN (Reason: dizziness) Qty: 12 0RF No Action amlodipine [Norvasc] 10 mg tablet 10 mg PO DAILY losartan-hydrochlorothiazide 100-12.5 mg tablet 1 tab PO DAILY carvedilol 6.25 mg tablet 6.25 mg PO Q12H levothyroxine 100 mcg tablet 100 mcg PO DAILY acetaminophen [8 Hour Pain Reliever] 650 mg tablet extended release 650 mg PO Q8H PRN (Reason: pain) omega 3-cmo-owh-fish oil [Fish Oil] 1,000 mg (120 mg-180 mg) capsule 1 cap PO DAILY multivitamin [Daily Multi-Vitamin] Tablet 1 tab PO DAILY aspirin 81 mg capsule 81 mg PO DAILY oxycodone-acetaminophen [Percocet] 5-325 mg tablet 1 tab PO BID PRN (Reason: pain) Qty: 60 0RF calcium carbonate [Calcium 600] 600 mg calcium (1,500 mg) tablet 600 mg PO DAILY prednisone 2.5 mg tablet Print Language: Algerian Instructions: Hypertension (ED), Dizziness (ED) Referrals: Suhas Arizmendi DO [Primary Care Provider] - 1 week
[2024-08-30 13:26] LABS: Anion Gap 14.1; BUN Creatinine Ratio 24.7; Calcium 9.9 mg/dL (8.5-10.1); Carbon Dioxide 25.4 mmol/L (21.0-32.0); Chloride 107 mmol/L (98-107); Estimated GFR (African America >60 (>=60 mL/min/1.73m^2); Estimated GFR (Non-African Ame >60 (>=60 mL/min/1.73m^2); Glucose 105 mg/dL (74-106); Potassium 3.5 mmol/L (3.5-5.1); Sodium 143 mmol/L (136-145); Troponin I High Sensitivity 6.7 pg/mL (4.0-51.3)
[2024-08-30] MEDS: ONDANSETRON PF 4 MG/2 ML VIAL IV (13:30)
[2024-08-30] MEDS: LORAZEPAM 2 MG/ML VIAL 0.5 MG IV (13:30)
[2024-08-30 15:14] LABS: Bilirubin Urine NEGATIVE (NEGATIVE); Blood Urine NEGATIVE (NEGATIVE); Clarity Urine CLEAR (CLEAR); Color Urine LT. YELLOW (YELLOW); Glucose Urine UA NEGATIVE (NEGATIVE); Ketones Urine NEGATIVE (NEGATIVE); Leukocyte Esterase Urine NEGATIVE (NEGATIVE); Nitrite Urine NEGATIVE (NEGATIVE); Protein Urine NEGATIVE (NEG/TRACE); Specific Gravity Urine 1.015 (1.005-1.025); Urobilinogen Urine 0.2 EU/dL (0.2-1.0); pH Urine 8.5 (5.0-9.0)
[2024-08-30 15:22] LABS: Bacteria Urine NONE SEEN #/HPF (NONE SEEN); Cast Seen? NONE SEEN #/LPF (NONE SEEN); Crystals Seen? None Seen #/HPF (None Seen); Mucus Urine NONE SEEN (NONE SEEN); RBC Urine 0-2 #/HPF (0-2); Squamous Epithelial Cell Urine RARE #/LPF (NONE/RARE); Urine Culture Indicated NO; WBC Urine NONE SEEN #/HPF (NONE SEEN)
[2024-08-30] MEDS: METHYLPREDNISOLONE SOD SUCC PF 125 MG/2 ML VIAL IVP (15:36)
[2024-08-30] MEDS: MECLIZINE HCL 12.5 MG TABLET 25 MG PO (15:36)
== END 2024-08-30 16:23 | disposition home or self-care (01) ==
PROVIDERS: Emergency Provider Student in an Organized Health Care Education/Training Program; PCP Family Medicine
DX: R42 Dizziness and giddiness (principal); I10 Essential (primary) hypertension; Z53.8 Procedure and treatment not carried out for other reasons; Z79.899 Other long term (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
CPT/HCPCS: 36415; 70450; 71045; 80048; 81001; 84484; 85025; 93005; 96374; 96375; 99285; J2060; J2405; J2919

== ENCOUNTER 2024-09-13 09:42 | Day surgery (SDC) | payer MEDICARE, OTHER, SELFPAY ==
--- OUTSIDE RECORDS SUMMARY | 2024-09-13 09:57 | XMS_ITS | CCD ---
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 Name Role Phone Suhas Garrett Unavailable Suhas [...] Andrius Vytautmarshal Attending Unavailable Gifaniraitis , Andri Vytgeorge Attending Unavailable SHY WOLF Attending Unavailable SUHAS [...] Translations: [Fosamax] Drug Allergy 3 Unknown, Other [facility] Repository (20 sources) Amoxicillin; Translations: [amoxicillin] Drug Allergy 9 hives [facility] Other (20 sources) Phenytoin; Translations: [Dilantin CAPS] Drug Allergy 3 Rash [facility] Other (20 sources) Valproate; Translations: [Depakote ER TB24] Drug Allergy [facility] Other (1 source) Alendronate Drug Allergy [facility] Repository (1 source) Amoxicillin Drug Allergy [facility] Repository (1 source) Phenytoin Drug Allergy [facility] Repository (1 source) Valproate Drug Allergy [facility] Repository (20 sources) Acetaminophen / HYDROcodone Drug Allergy elevated liver enzymes [facility] Other (1 source) Alendronate Drug Allergy 3 [facility] (3 sources) HYDROcodone; Translations: [HYDROCODONE] Drug Allergy 4 GI Upset [facility] Work Phone: (3 sources) Valproate; Translations: [VALPROIC ACID] Drug Allergy 3 [facility] Work Phone: (1 source) Acetaminophen Drug Allergy 4 [facility] Repository (1 source) Alendronate Drug Allergy 4 [facility] Repository (1 source) Amoxicillin Drug Allergy 4 [facility] Repository (1 source) HYDROcodone Drug Allergy 4 [facility] Repository (1 source) Phenytoin Drug Allergy 4 [facility] Repository (1 source) Valproate Drug Allergy 4 [facility] Repository Medications Current Medications Medication Drug [...] tablet by mouth once daily. 0 Active [place] 3 1000 MG (20 sources) take 1 capsule by mouth once daily [place] 3 1000 MG 1 capsule with a [...] take 1 capsule by mouth once daily [place]-3 Fish Oil 1000 MG Oral Capsule TAKE [...] 0 Refills: 0 Ordered: 13-Dec-2021 DO Active [place] 3 500 CAPS (4 sources) [place] 3 500 CAPS TAKE 1 CAPSULE Daily [...] Coronary arteriosclerosis; 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 [place] coronary artery without angina pectoris] Onset: 09-03-2023 [...] fracture] Chronic Other aftercare (1 source) Other [facility] (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; Translations: [OTH CARE TRANSITIONS NURSE CURRENT DRUG THERAPY] Onset: 02-22-2022 Episodic Other [...] (Bld) [#/Vol] 0.1 10*3/uL Normal 0.0-0.2 [facility] Comment on above: Performed By: #### V [id number], CMP, TSH3, LIPID, CBC, T4F, ESR #### [address] Basophils/100 WBC (Bld) 1.1 % Normal . [facility] Comment on above: Performed By: #### V [id number], CMP, TSH3, LIPID, CBC, T4F, ESR #### [address] Eosinophils (Bld) [#/Vol] 0.1 10*3/uL Normal 0.0-0.45 [facility] Comment on above: Performed By: #### V [id number], CMP, TSH3, LIPID, CBC, T4F, ESR #### [address] Eosinophils/100 WBC (Bld) 2.2 % Normal . [facility] Comment on above: Performed By: #### V [id number], CMP, TSH3, LIPID, CBC, T4F, ESR #### [address] Erythrocyte distribution width (RBC) [Ratio] 13.5 % Normal 11.9-15.3 [facility] Comment on above: Performed By: #### V [id number], CMP, TSH3, LIPID, CBC, T4F, ESR #### [address] Hematocrit (Bld) [Volume fraction] 37.9 % Normal 34.0-46.4 [facility] Comment on above: Performed By: #### V [id number], CMP, TSH3, LIPID, CBC, T4F, ESR #### [address] Hemoglobin (Bld) [Mass/Vol] 12.9 g/dL Normal 11.8-15.4 [facility] Comment on above: Performed By: #### V [id number], CMP, TSH3, LIPID, CBC, T4F, ESR #### [address] Lymphocytes (Bld) [#/Vol] 2.2 10*3/uL Normal 1.00-4.8 [facility] Comment on above: Performed By: #### V [id number], CMP, TSH3, LIPID, CBC, T4F, ESR #### [address] Lymphocytes/100 WBC (Bld) 34.3 % Normal . [facility] Comment on above: Performed By: #### V [id number], CMP, TSH3, LIPID, CBC, T4F, ESR #### [address] MCH (RBC) [Entitic mass] 33.5 pg Normal 24.7-34.3 [facility] Comment on above: Performed By: #### V [id number], CMP, TSH3, LIPID, CBC, T4F, ESR #### [address] MCV (RBC) [Entitic vol] 98.4 fL Normal 80-100 [facility] Comment on above: Performed By: #### V [id number], CMP, TSH3, LIPID, CBC, T4F, ESR #### [address] Mean Corpuscular HGB Conc 34.1 g/dL Normal 32.0-35.0 [facility] Comment on above: Performed By: #### V [id number], CMP, TSH3, LIPID, CBC, T4F, ESR #### [address] Monocytes (Bld) [#/Vol] 0.6 10*3/uL Normal 0.0-0.8 [facility] Comment on above: Performed By: #### V [id number], CMP, TSH3, LIPID, CBC, T4F, ESR #### [address] Monocytes/100 WBC (Bld) 9.8 % Normal . [facility] Comment on above: Performed By: #### V [id number], CMP, TSH3, LIPID, CBC, T4F, ESR #### [address] Neutrophils (Bld) [#/Vol] 3.4 10*3/uL Normal 1.8-7.7 [facility] Comment on above: Performed By: #### V [id number], CMP, TSH3, LIPID, CBC, T4F, ESR #### [address] Neutrophils/100 WBC (Bld) 52.6 % Normal . [facility] Comment on above: Performed By: #### V [id number], CMP, TSH3, LIPID, CBC, T4F, ESR #### [address] NRBC% 0.3 /100{WBC} Normal 0-0.5 [facility] Comment on above: Performed By: #### V [id number], CMP, TSH3, LIPID, CBC, T4F, ESR #### [address] Platelet mean volume (Bld) [Entitic vol] 9.3 fL Normal 6.3-10.7 [facility] Comment on above: Performed By: #### V [id number], CMP, TSH3, LIPID, CBC, T4F, ESR #### [address] Platelets (Bld) [#/Vol] 208 10*3/uL Normal 150-450 [facility] Comment on above: Performed By: #### V [id number], CMP, TSH3, LIPID, CBC, T4F, ESR #### [facility] [address] RBC (Bld) [#/Vol] 3.85 10*6/uL Normal 3.60-5.00 [facility] Comment on above: Performed By: #### V [id number], CMP, TSH3, LIPID, CBC, T4F, ESR #### [facility] [address] WBC (Bld) [#/Vol] 6.6 10*3/uL Normal 3.8-11.6 [facility] Comment on above: Performed By: #### V [id number], CMP, TSH3, LIPID, CBC, T4F, ESR #### [address] Comprehensive Metabolic Pane nory 07-28-2024 Albumin [Mass/Vol] 3.7 g/dL Normal 3.5-5.7 [facility] Comment on above: Performed By: #### V [id number], CMP, TSH3, LIPID, CBC, T4F, ESR #### [address] Albumin/Globulin [Mass ratio] 1.9 {ratio} Normal [facility] Comment on above: Performed By: #### V [id number], CMP, TSH3, LIPID, CBC, T4F, ESR #### [address] ALP [Catalytic activity/Vol] 62 U/L Normal 34-104 [facility] Comment on above: Performed By: #### V [id number], CMP, TSH3, LIPID, CBC, T4F, ESR #### [address] ALT [Catalytic activity/Vol] 21 U/L Normal 7-52 [facility] Comment on above: Performed By: #### V [id number], CMP, TSH3, LIPID, CBC, T4F, ESR #### [address] Anion gap [Moles/Vol] 8.2 mmol/L Normal 6.0-15.0 [facility] Comment on above: Performed By: #### V [id number], CMP, TSH3, LIPID, CBC, T4F, ESR #### [address] AST [Catalytic activity/Vol] 19 U/L Normal 13-39 [facility] Comment on above: Performed By: #### V [id number], CMP, TSH3, LIPID, CBC, T4F, ESR #### [address] Bilirubin [Mass/Vol] 0.7 mg/dL Normal 0.3-1.0 [facility] Comment on above: Performed By: #### V [id number], CMP, TSH3, LIPID, CBC, T4F, ESR #### [address] Calcium [Mass/Vol] 9.7 mg/dL Normal 8.6-10.3 [facility] Comment on above: Performed By: #### V [id number], CMP, TSH3, LIPID, CBC, T4F, ESR #### [address] Chloride [Moles/Vol] 107 mmol/L Normal 98-107 [facility] Comment on above: Performed By: #### V [id number], CMP, TSH3, LIPID, CBC, T4F, ESR #### [address] CO2 [Moles/Vol] 31.5 mmol/L High 21.0-31.0 [facility] Comment on above: Performed By: #### V [id number], CMP, TSH3, LIPID, CBC, T4F, ESR #### [address] Creatinine [Mass/Vol] 0.67 mg/dL Normal 0.60-1.20 [facility] Comment on above: Performed By: #### V [id number], CMP, TSH3, LIPID, CBC, T4F, ESR #### [place] [address] [place] GFR/1.73 sq M.predicted MDRD (S/P/Bld) [Vol rate/Area] mL/min/{1.73_m2} Normal [facility] Comment on above: Performed By: #### V [id number], CMP, TSH3, LIPID, CBC, T4F, ESR #### [facility] [address] Globulin (S) [Mass/Vol] 1.9 g/dL Normal [facility] Comment on above: Performed By: #### V [id number], CMP, TSH3, LIPID, CBC, T4F, ESR #### [facility] [address] Glucose [Mass/Vol] 89 mg/dL Normal 70-100 [facility] Comment on above: Result Comment: [facility] [place] Glucose Reference Range is dependent on time and content of last meal. Glucose of more than 200 mg/dL in a nonstressed, ambulatory subject supports the diagnosis of Diabetes Mellitus. ADA recommended reference range Performed By: #### V [id number], CMP, TSH3, LIPID, CBC, T4F, ESR #### [address] Potassium [Moles/Vol] 3.7 mmol/L Normal 3.5-5.1 [facility] Comment on above: Performed By: #### V [id number], CMP, TSH3, LIPID, CBC, T4F, ESR #### [address] Protein [Mass/Vol] 5.6 g/dL Low 6.4-8.9 [facility] Comment on above: Performed By: #### V [id number], CMP, TSH3, LIPID, CBC, T4F, ESR #### [address] Sodium [Moles/Vol] 143 mmol/L Normal 136-145 [facility] Comment on above: Performed By: #### V [id number], CMP, TSH3, LIPID, CBC, T4F, ESR #### [address] Urea nitrogen [Mass/Vol] 19 mg/dL Normal 7-25 [facility] Comment on above: Performed By: #### V [id number], CMP, TSH3, LIPID, CBC, T4F, ESR #### [address] Erythrocyte Sedimentation Ra amy 07-28-2024 ESR (Bld) [Velocity] 9 mm/h Normal 0-29 [facility] Comment on above: Result Comment: PERF ORMED BY: [place] [id number] PATHOLOGIST WHEEL WORKER JASIEL HURTADO M.D. Performed By: #### V [id number], CMP, TSH3, LIPID, CBC, T4F, ESR #### [address] Free T4 (Free Thyroxine)on 0 07-28-2024 Free T4 [Mass/Vol] 0.74 ng/dL Normal 0.61-1.12 [facility] Comment on above: Performed By: #### L IPID, TSH3, CMP, CBC #### [address] Lipid Panelon 07-28-2024 Cholesterol [Mass/Vol] 228 mg/dL High 140-200 [facility] Comment on above: Result Comment: Chol less than 200 mg/dl low risk Chol 201-239 mg/dl borderline risk Chol 240 mg/dl and greater high risk Performed By: #### V [id number], CMP, TSH3, LIPID, CBC, T4F, ESR #### [address] Cholesterol in HDL [Mass/Vol] 96 mg/dL High 23-92 [facility] Comment on above: Result Comment: HDL CHOL ATP-III CLASSIFICATION Cardiovascular Risk HDL > or equal to 60 mg/dL LOW HDL < 40 mg/dL HIGH Performed By: #### V [id number], CMP, TSH3, LIPID, CBC, T4F, ESR #### [facility] [address] [place] [address] [place] Cholesterol.total/Ch olesterol in HDL [Mass ratio] 2.4 {ratio} Normal <5.0 [facility] Comment on above: Performed By: #### V [id number], CMP, TSH3, LIPID, CBC, T4F, ESR #### [facility] [address] LDL Cholesterol,Calculat ed 121 mg/dL High 0-100 [facility] Comment on above: Result Comment: LDL ATP III CLASSIFICATION LDL less than 100 mg/dL Optimal LDL 100-129 mg/dL Near or above optimal LDL 130-159 mg/dL Borderline high LDL 160-189 mg/dL High LDL greater than 189 mg/dL Very high Performed By: #### V [id number], CMP, TSH3, LIPID, CBC, T4F, ESR #### [facility] [address] Triglyceride w/Reflex 57 mg/dL Normal 0-149 [facility] Comment on above: Result Comment: TRIG ATP III CLASSIFICATION TRIG less than 150 mg/dL Normal TRIG 150-199 mg/dL Borderline high TRIG 200-500 mg/dL High TRIG greater than 500 mg/dL Very high Standard traceable to the Center for Disease Conrtrol and Prevention (CDC) test method. Performed By: #### V [id number], CMP, TSH3, LIPID, CBC, T4F, ESR #### [facility] [address] VLDL CHOLESTEROL 11 mg/dL Normal [facility] Comment on above: Performed By: #### V [id number], CMP, TSH3, LIPID, CBC, T4F, ESR #### [facility] [address] [place] [id number] [place] Thyroid Stimulating Hormoneo n 07-28-2024 TSH Qn 6.38 m[IU]/L High 0.45-5.33 [facility] Comment on above: Performed By: #### L IPID, TSH3, CMP, CBC #### [facility] [address] [place] [id number] [place] Vitamin D 25 Hydroxy Totalon 07-28-2024 Vitamin D 25 Hydroxy Total 28.4 ng/mL Low 30-100 [facility] Comment on above: Result Comment: ANJU MIN D STATUS 25(OH)VITAMIN D RANGE (ng/mL) Deficient <20 Insufficient 20 to <30 Sufficient 30 to 100 Reference: Yolanda MF,Nathan WOO, Keshawn FRANCO, et al. Evaluation,treatment, and prevention of vitamin D deficiency; an Endocrine Society clinical practice guideline. JCEM. 2010; 96(7):1911-30. PERFORMED BY: [place] [id number] PATHOLOGIST WHEEL WORKER JASIEL HURTADO M.D. Performed By: #### L IPID, TSH3, CMP, CBC #### [address] XR scapula LT*on 05-25-2024 XR scapula LT* [facility] [place] [address] [place] [address] XRay Report Signed Patient: Lavonne Villatoro MR#: [id number] : 1935 Acct:[id number] Age/Sex: 88 / F ADM Date: 05/25/24 Loc: XD Room: Type: [facility] Attending Dr: Suhas Garrett DO Copies to: Suhas Garrett DO Ordering Provider: Suhas Garrett DO Date of Service: 05/25/24 XR/XR shoulder LT min 2V*: M25.519 - Pain in unspecified shoulder ([id number]) XR/XR scapula LT*: M25.519 - Pain in [...] Casandra Gómez M.D.05/25/2024 4:45 PM Dictation Location: [place] [address] Transcribed By: [facility] 05/25/241644 Dictated By: Casandra Gómez MD 05/25/241641 Signed By: 05/25/241644 Normal [facility]STHORACIC ECHO (TTE) COMPLETE [address], [address] [place] [address] TRANSTHORACIC ECHOCARDIOGRAM REPORT Patient Name: LAVONNE VILLATORO Reading Physician: [id number] Shy Wolf MD, [facility] Study Date: 02/11/2024 Ordering Provider: [id number] SHY WOLF MRN/PID: [id number] Fellow: Nurse: Date of /Age: 3 1935 / 88 years Net Lead Developer: LILIA Gender: F Additional Staff: Height: 157.48 cm Admit Date: Weight: 69.40 kg Admission Status: BSA / BMI: 1.71 m2 / 27.98 kg/m2 Department Location: [facility] Blood Pressure: 116 /76 mmHg Study Type: TRANSTHORACIC ECHO (TTE) COMPLETE Diagnosis/ICD: Nonrheumatic aortic (valve) stenosis-I35.0 Indication: HTN, Hyperlipidemia, 3/6 Systolic Murmur, Hypothryoid, Overweight CPT Codes: Echo Complete w Full Doppler-[id number] Study Detail: The following Echo studies were [...] mmHg PIEDV: 2.23 m/s PADP: 22.9 mmHg [id number] Shy Wolf MD, [facility] Electronical (more content not included)... [facility] US carotid doppler BIon 05-0 US carotid doppler BI [facility] [place] [address] [place] [address] Ultrasound Report Signed Patient: Lavonne Villatoro MR#: [id number] : 1935 Acct:[id number] Age/Sex: 88 / F ADM Date: 10/14/23 Loc: Room: Type: [facility] Attending Dr: Suhas Garrett DO Ordering [...] Hola Wynn M.D.10/15/2023 11:47 AM Dictation Location: [place] [address] Tech: Jackie Aguillon Transcribed By: KIRILL 10/15/23 1147 Dictated By: Hola Wynn MD 10/15/23 1145 Signed By: 10/15/23 1147 Normal [facility] Complete Blood Count Auto Di ffon 09-03-2023 Basophils (Bld) [#/Vol] 0.0 10*3/uL Normal 0.0-0.2 [facility] Comment on above: Result Comment: PERF ORMED BY: [place] [address] PATHOLOGIST WHEEL WORKER JODY SOLANO M.D. Performed By: #### L IPID, TSH3, CMP, CBC #### [address] Basophils/100 WBC (Bld) 0.7 % Normal . [facility] Comment on above: Performed By: #### L IPID, TSH3, CMP, CBC #### [address] Eosinophils (Bld) [#/Vol] 0.1 10*3/uL Normal 0.0-0.45 [facility] Comment on above: Performed By: #### L IPID, TSH3, CMP, CBC #### [address] Eosinophils/100 WBC (Bld) 1.6 % Normal . [facility] Comment on above: Performed By: #### L IPID, TSH3, CMP, CBC #### [address] Erythrocyte distribution width (RBC) [Ratio] 14.8 % Normal 11.9-15.3 [facility] Comment on above: Performed By: #### L IPID, TSH3, CMP, CBC #### [address] Hematocrit (Bld) [Volume fraction] 39.9 % Normal 34.0-46.4 [facility] Comment on above: Performed By: #### L IPID, TSH3, CMP, CBC #### [address] Hemoglobin (Bld) [Mass/Vol] 13.2 g/dL Normal 11.8-15.4 [facility] Comment on above: Performed By: #### L IPID, TSH3, CMP, CBC #### [address] Lymphocytes (Bld) [#/Vol] 2.6 10*3/uL Normal 1.00-4.8 [facility] Comment on above: Performed By: #### L IPID, TSH3, CMP, CBC #### [address] Lymphocytes/100 WBC (Bld) 43.5 % Normal . [facility] Comment on above: Performed By: #### L IPID, TSH3, CMP, CBC #### [address] MCH (RBC) [Entitic mass] 33.2 pg Normal 24.7-34.3 [facility] Comment on above: Performed By: #### L IPID, TSH3, CMP, CBC #### [address] MCV (RBC) [Entitic vol] 100.5 fL High 80-100 [facility] Comment on above: Performed By: #### L IPID, TSH3, CMP, CBC #### [address] Mean Corpuscular HGB Conc 33.0 g/dL Normal 32.0-35.0 [facility] Comment on above: Performed By: #### L IPID, TSH3, CMP, CBC #### [address] Monocytes (Bld) [#/Vol] 0.6 10*3/uL Normal 0.0-0.8 [facility] Comment on above: Performed By: #### L IPID, TSH3, CMP, CBC #### [address] Monocytes/100 WBC (Bld) 9.7 % Normal . [facility] Comment on above: Performed By: #### L IPID, TSH3, CMP, CBC #### [address] Neutrophils (Bld) [#/Vol] 2.7 10*3/uL Normal 1.8-7.7 [facility] Comment on above: Performed By: #### L IPID, TSH3, CMP, CBC #### [address] Neutrophils/100 WBC (Bld) 44.5 % Normal . [facility] Comment on above: Performed By: #### L IPID, TSH3, CMP, CBC #### [address] NRBC% 0.2 /100{WBC} Normal 0-0.5 [facility] Comment on above: Performed By: #### L IPID, TSH3, CMP, CBC #### [address] Platelet mean volume (Bld) [Entitic vol] 9.2 fL Normal 6.3-10.7 [facility] Comment on above: Performed By: #### L IPID, TSH3, CMP, CBC #### [place] [address] [place] Platelets (Bld) [#/Vol] 229 10*3/uL Normal 150-450 [facility] Comment on above: Performed By: #### L IPID, TSH3, CMP, CBC #### [address] RBC (Bld) [#/Vol] 3.98 10*6/uL Normal 3.60-5.00 [facility] Comment on above: Performed By: #### L IPID, TSH3, CMP, CBC #### [address] WBC (Bld) [#/Vol] 6.0 10*3/uL Normal 3.8-11.6 [facility] Comment on above: Performed By: #### L IPID, TSH3, CMP, CBC #### [address] Comprehensive Metabolic Pane nory 09-03-2023 Albumin [Mass/Vol] 3.8 g/dL Normal 3.5-5.7 [facility] Comment on above: Performed By: #### L IPID, TSH3, CMP, CBC #### [address] Albumin/Globulin [Mass ratio] 1.7 {ratio} Normal [facility] Comment on above: Performed By: #### L IPID, TSH3, CMP, CBC #### [address] ALP [Catalytic activity/Vol] 72 U/L Normal 34-104 [facility] Comment on above: Performed By: #### L IPID, TSH3, CMP, CBC #### [address] ALT [Catalytic activity/Vol] 43 U/L Normal 7-52 [facility] Comment on above: Performed By: #### L IPID, TSH3, CMP, CBC #### [address] Anion gap [Moles/Vol] 8.9 mmol/L Normal 6.0-15.0 [facility] Comment on above: Performed By: #### L IPID, TSH3, CMP, CBC #### [address] AST [Catalytic activity/Vol] 23 U/L Normal 13-39 [facility] Comment on above: Performed By: #### L IPID, TSH3, CMP, CBC #### [address] Bilirubin [Mass/Vol] 1.2 mg/dL High 0.3-1.0 [facility] Comment on above: Performed By: #### L IPID, TSH3, CMP, CBC #### [address] Calcium [Mass/Vol] 9.5 mg/dL Normal 8.6-10.3 [facility] Comment on above: Performed By: #### L IPID, TSH3, CMP, CBC #### [address] Chloride [Moles/Vol] 107 mmol/L Normal 98-107 [facility] Comment on above: Performed By: #### L IPID, TSH3, CMP, CBC #### [address] CO2 [Moles/Vol] 30.0 mmol/L Normal 21.0-31.0 [facility] Comment on above: Performed By: #### L IPID, TSH3, CMP, CBC #### [address] Creatinine [Mass/Vol] 0.76 mg/dL Normal 0.60-1.20 [facility] Comment on above: Performed By: #### L IPID, TSH3, CMP, CBC #### [place] [address] [place] GFR/1.73 sq M.predicted MDRD (S/P/Bld) [Vol rate/Area] mL/min/{1.73_m2} Normal [facility] Comment on above: Performed By: #### L IPID, TSH3, CMP, CBC #### [place] [address] [place] Globulin (S) [Mass/Vol] 2.2 g/dL Normal [facility] Comment on above: Performed By: #### L IPID, TSH3, CMP, CBC #### [address] Glucose [Mass/Vol] 79 mg/dL Normal 70-100 [facility] Comment on above: Result Comment: [place] [facility] Glucose Reference Range is dependent on time and content of last meal. Glucose of more than 200 mg/dL in a nonstressed, ambulatory subject supports the diagnosis of Diabetes Mellitus. ADA recommended reference range Performed By: #### L IPID, TSH3, CMP, CBC #### [facility] [address] Potassium [Moles/Vol] 3.9 mmol/L Normal 3.5-5.1 [facility] Comment on above: Performed By: #### L IPID, TSH3, CMP, CBC #### [address] Protein [Mass/Vol] 6.0 g/dL Low 6.4-8.9 [facility] Comment on above: Performed By: #### L IPID, TSH3, CMP, CBC #### [address] Sodium [Moles/Vol] 142 mmol/L Normal 136-145 [facility] Comment on above: Performed By: #### L IPID, TSH3, CMP, CBC #### [address] Urea nitrogen [Mass/Vol] 22 mg/dL Normal 7-25 [facility] Comment on above: Performed By: #### L IPID, TSH3, CMP, CBC #### [address] Lipid Panelon 09-03-2023 Cholesterol [Mass/Vol] 243 mg/dL High 140-200 [facility] Comment on above: Result Comment: Chol less than 200 mg/dl low risk Chol 201-239 mg/dl borderline risk Chol 240 mg/dl and greater high risk Performed By: #### L IPID, TSH3, CMP, CBC #### [address] Cholesterol in HDL [Mass/Vol] 98 mg/dL High 23-92 [facility] Comment on above: Result Comment: HDL CHOL ATP-III CLASSIFICATION Cardiovascular Risk HDL > or equal to 60 mg/dL LOW HDL < 40 mg/dL HIGH Performed By: #### L IPID, TSH3, CMP, CBC #### [facility] [address] Cholesterol.total/Ch olesterol in HDL [Mass ratio] 2.5 {ratio} Normal <5.0 [facility] Comment on above: Performed By: #### L IPID, TSH3, CMP, CBC #### [facility] [address] LDL Cholesterol,Calculat ed 121 mg/dL High 0-100 [facility] Comment on above: Result Comment: LDL ATP III CLASSIFICATION LDL less than 100 mg/dL Optimal LDL 100-129 mg/dL Near or above optimal LDL 130-159 mg/dL Borderline high LDL 160-189 mg/dL High LDL greater than 189 mg/dL Very high Performed By: #### L IPID, TSH3, CMP, CBC #### [address] Triglyceride w/Reflex 122 mg/dL Normal 0-149 [facility] Comment on above: Result Comment: TRIG ATP III CLASSIFICATION TRIG less than 150 mg/dL Normal TRIG 150-199 mg/dL Borderline high TRIG 200-500 mg/dL High TRIG greater than 500 mg/dL Very high Standard traceable to the Center for Disease Conrtrol and Prevention (CDC) test method. Performed By: #### L IPID, TSH3, CMP, CBC #### [address] VLDL CHOLESTEROL 24 mg/dL Normal [facility] Comment on above: Performed By: #### L IPID, TSH3, CMP, CBC #### [address] Thyroid Stimulating Hormoneo n 09-03-2023 TSH Qn 4.01 m[IU]/L Normal 0.45-5.33 [facility] Comment on above: Result Comment: PERF ORMED BY: [place] [id number] PATHOLOGIST WHEEL WORKER JODY SOLANO M.D. Performed By: #### L IPID, TSH3, CMP, CBC #### [facility] [address] Complete Blood Count Auto Di ffon 07-08-2023 Basophils (Bld) [#/Vol] 0.963418016 10*3/uL Normal 0.0-0.2 10*3/uL [facility] Other Basophils/100 WBC (Bld) 0.900 % . % [facility] Other Eosinophils (Bld) [#/Vol] 0.083725278 10*3/uL Normal 0.0-0.45 10*3/uL [facility] Other Eosinophils/100 WBC (Bld) 1.100 % . % [facility] Other Erythrocyte distribution width (RBC) [Ratio] 14.000 % Normal 11.9-15.3 % [facility] Other Hematocrit (Bld) [Volume fraction] 37.700 % Normal 34.0-46.4 % [facility] Other Hemoglobin (Bld) [Mass/Vol] 12.862145 g/dL Normal 11.8-15.4 g/dL [facility] Other Lymphocytes (Bld) [#/Vol] 2.050531079 10*3/uL Normal 1.00-4.8 10*3/uL [facility] Other Lymphocytes/100 WBC (Bld) 35.100 % . % [facility] Other MCH (RBC) [Entitic mass] 33.3000 pg Normal 24.7-34.3 pg [facility] Other MCV (RBC) [Entitic vol] 99.7000 fL Normal 80-100 fL [facility] Other Monocytes (Bld) [#/Vol] 0.872261642 10*3/uL Normal 0.0-0.8 10*3/uL [facility] Other Monocytes/100 WBC (Bld) 10.000 % . % [facility] Other Neutrophils (Bld) [#/Vol] 3.264225674 10*3/uL Normal 1.8-7.7 10*3/uL [facility] Other Neutrophils/100 WBC (Bld) 52.900 % . % [facility] Other Platelet mean volume (Bld) [Entitic vol] 9.9000 fL Normal 6.3-10.7 fL [facility] Other Platelets (Bld) [#/Vol] 224 10*3/uL Normal 150-450 10*3/uL [facility] Other RBC (Bld) [#/Vol] 3.78 10*6/uL Normal 3.60-5.00 [facility] Other WBC (Bld) [#/Vol] 7.299703343 10*3/uL Normal 3.8 -11.6 10*3/uL [facility] Other Complete Blood Count Auto Diff 7.1 10*3/uL Normal 3.8-11.6 10*3/uL [facility] Other Complete Blood Count Auto Diff 33.4 g/dL Normal 32.0-35.0 g/dL [facility] Other Complete Blood Count Auto Diff 0.1 /100{WBC} Normal 0-0.5 /100{WBC} [facility] Other Comprehensive Metabolic Pane nory 07-08-2023 Albumin [Mass/Vol] 3.008099 g/dL Normal 3.5-5.7 g/dL [facility] [employer] Other Albumin/Globulin [Mass ratio] 1.7 {ratio} [facility] Other ALP [Catalytic activity/Vol] 140 U/L High 34-104 U/L [facility] Other ALT [Catalytic activity/Vol] 71 U/L High 7-52 U/L [facility] [employer] Other AST [Catalytic activity/Vol] 20 U/L Normal 13-39 U/L [place] [employer] Other Bilirubin [Mass/Vol] 0.0614391 mg/dL Normal 0.3-1.0 mg /dL [place] [employer] Other Calcium [Mass/Vol] 9.5473490 mg/dL Normal 8.6-10 .3 mg/dL [place] [employer] Other Chloride [Moles/Vol] 107 mmol/L Normal 98-107 mmol/L [facility] [employer] Other CO2 [Moles/Vol] 30.46977308 mmol/L Normal 21.0-3 1.0 mmol/L [place] [employer] Other Creatinine [Mass/Vol] 0.50735276 mg/dL Normal 0.60-1.20 mg/dL [place] [employer] Other GFR/1.73 sq M.predicted MDRD (S/P/Bld) [Vol rate/Area] mL/min/{1.73_m2} [facility] [employer] Other Glucose [Mass/Vol] 89 mg/dL Normal 70-100 mg/dL [facility] [employer] Other Potassium [Moles/Vol] 3.45445173 mmol/L Normal 3.5-5.1 mmol/L [place] [employer] Other Protein [Mass/Vol] 6.170374 g/dL Low 6.4-8.9 g/dL [facility] [employer] Other Sodium [Moles/Vol] 143 mmol/L Normal 136-145 mmol/L [place] [employer] Other Urea nitrogen [Mass/Vol] 21 mg/dL Normal 7-25 mg/dL [facility] Other Comprehensive Metabolic Panel 2.2 g/dL [facility] Other Free T4 (Free Thyroxine)on 0 07-08-2023 Free T4 [Mass/Vol] 1.85778580 ng/dL High 0.61- 1.12 ng/dL [facility] Other Thyroid Antibodies TPO+Tg Ab on 07-08-2023 Thyroid Antibodies TPO+Tg Ab 11 0-34 [facility] Other Thyroid Antibodies TPO+Tg Ab <1.0 0.0-0.9 [facility] Other Thyroid Stimulating Hormoneo n 07-08-2023 TSH Qn 2.90625494616 m[IU]/L Normal 0.45-5 .33 u[iU]/mL [facility] Other Echocardiogramon 02-26-[address], [address] [place] [address] TRANSTHORACIC ECHOCARDIOGRAM REPORT Patient Name: LAVONNE Shruti Physician: [id number] Shy Wolf MD, [facility] Study Date: 02/26/2023 Referring SHY WOLF Physician: MRN/PID: [id number] PCP: Suhas Garrett MD Accession/Order#: [id number] [facility] Location: Date of : 1935 Fellow: Gender: F Nurse: Admit Date: Net Lead Developer: Sheridan Lemus [facility] Height: 157.48 cm CC Report to: Weight: 67.13 kg Study Type: Echocardiogram BSA: 1.68 m2 Blood Pressure: 122 /76 mmHg Diagnosis/ICD: I35.0-Nonrheumatic aortic (valve) stenosis; R01.1-Cardiac murmur, unspecified Indication: HTN, Hyperlipidemia, Overweight, Hypothyroid, Polymyalgia Rheumatica Procedure/CPT: Echo Complete w Full Doppler-23224 Study Detail: The following Echo studies were [...] mmHg PIEDV: 2.50 m/s PADP: 28.0 mmHg [id number] Shy Wolf MD, [facility] Electronically signed on 03/01/2023 at 2:16:[address] [facility] Office Visit (Cardiology)on 12-24-2022 Follow-up visit Diagnoses/Problems Assessed Aortic stenosis (424.1) (I35.0) Murmur, cardiac (785.2) (R01.1) Essential hypertension (401.9) (I10) Hyperlipidemia (272.4) (E78.5) Overweight with body mass index (BMI) of 27 to 27.9 in adult (278.02,V85.23) (E66.3,Z68.27) Never smoker Hypothyroidism (244.9) (E03.9) PMR (polymyalgia rheumatica) (725) (M35.3) Orders Aortic stenosis, Murmur, cardiac Echocardiogram; Status:Hold For - Scheduling,Retrospect bola Authorization; Requested for:[id number]; Essential hypertension, Hyperlipidemia Changed: From Aspirin EC 81 MG TBEC TAKE 1 TABLET To Aspirin 81 MG Oral Tablet Delayed Release TAKE 1 TABLET DAILY Overweight with body mass index (BMI) of 27 to 27.9 in adult Healthy Weight Tips; Status:Complete - Retrospective Authorization; Done: [id number] Some eating tips that can help you lose weight.; Status:Complete - Retrospective Authorization; Done: [id number] SocHx: Never smoker Tobacco Use Screening; Status:Complete; Done: [id number] Patient Instructions Please bring all medicines, vitamins, [...] being tapered gradually Shy Wolf MD, [facility] Past Medical History Problems History [...] Multi Vitamin Oral TabletTAKE 1 TABLET DAILY. [place]-3 Fish Oil 1000 MG Oral CapsuleTAKE 1 [...] negative for complaint. Vitals Vital Signs Recorded: [id number] 11:32AM Heart Rate68, R Radial Qgchrwpp795, RUE, Sitting Tqvrvcywt86, RUE, Sitting Height5 ft 2 in Eopxns902 lb BMI Etgjspsfjr14.07 kg/m2 BSA Calculated1.68 Tobacco Useb) No PHQ-2 [...] distress a (more content not included)... Normal [place] Tobacco Screening.on 023 Adult depression screening assessment No [facility] [employer] 250 DO Work Phone: Fall risk assessment a) No falls within the last year [facility] [employer] 250 DO Work Phone: Tobacco use status CP b) No [facility] [employer] 250 DO Work Phone: Complete Blood Count Auto Di ffon 02-22-2022 Basophils (Bld) [#/Vol] 0.860679989 10*3/uL Normal 0.0-0.2 10*3/uL [facility] Other Basophils/100 WBC (Bld) 0.700 % . % [facility] Other Eosinophils (Bld) [#/Vol] 0.718983694 10*3/uL Normal 0.0-0.45 10*3/uL [facility] Other Eosinophils/100 WBC (Bld) 0.700 % . % [facility] Other Erythrocyte distribution width (RBC) [Ratio] 13.500 % Normal 11.9-15.3 % [facility] Other Hematocrit (Bld) [Volume fraction] 38.400 % Normal 34.0-46.4 % [facility] Other Hemoglobin (Bld) [Mass/Vol] 12.700478 g/dL Normal 11.8-15.4 g/dL [facility] Other Lymphocytes (Bld) [#/Vol] 0.443324073 10*3/uL Low 1.00-4.8 10*3/uL [facility] Other Lymphocytes/100 WBC (Bld) 12.600 % . % [facility] Other MCH (RBC) [Entitic mass] 33.7000 pg Normal 24.7-34.3 pg [facility] Other MCV (RBC) [Entitic vol] 100.4000 fL High 80-100 fL [facility] Other Monocytes (Bld) [#/Vol] 0.763793898 10*3/uL Normal 0.0-0.8 10*3/uL [facility] Other Monocytes/100 WBC (Bld) 6.800 % . % [facility] Other Neutrophils (Bld) [#/Vol] 5.231691322 10*3/uL Normal 1.8-7.7 10*3/uL [facility] Other Neutrophils/100 WBC (Bld) 79.200 % . % [facility] Other Platelet mean volume (Bld) [Entitic vol] 9.4000 fL Normal 6.3-10.7 fL [facility] Other Platelets (Bld) [#/Vol] 223 10*3/uL Normal 150-450 10*3/uL [facility] Other RBC (Bld) [#/Vol] 3.2731549462 10*6/uL Normal 3. 60-5.00 10*6/uL [facility] Other WBC (Bld) [#/Vol] 6.858788102 10*3/uL Normal 3.8 -11.6 10*3/uL [facility] Other Complete Blood Count Auto Diff 6.6 10*3/uL Normal 4.5-11.0 10*3/uL [facility] Other Complete Blood Count Auto Diff 33.6 g/dL Normal 32.0-35.0 g/dL [facility] Other Complete Blood Count Auto Diff 0.1 % Normal 0-0.5 % [facility] Other Erythrocyte Sedimentation Ra amy 02-22-2022 ESR (Bld) [Velocity] 28 mm/h Normal 0-29 [place] [employer] Other VASC LAB Carotid Artery Dupl ex Ultrasoundon 02-21-2022 US.doppler Carotid arteries [facility] [employer] [address] [place] Work Phone: COVID Quick Testingon 2021 Result Positive [facility] Other Falls Screening (Age 18+)on 12-26-2021 Fall risk assessment a) No falls within the last year [facility] [employer] 250 DO Work Phone: Office Visit (Cardiology)on [...] Multi Vitamin Oral TabletTAKE 1 TABLET DAILY. [place] 3 500 [place] 1 CAPSULE Daily predniSONE 5 MG Oral Hxcbsa5QP 7.5MG BY MOUTH ONE DAILY ALTERNATING EVERY OTHER DAY Allergies Medication amoxicillin Hives;; Recorded By: Kayla Orr; 10/17/2021 10:50:34 AM Dilantin CAPS Rash; Recorded By: Kayla Orr; 10/17/2021 10:50:34 AM Fosamax eye pain; Recorded By: Kayla Orr; 10/17/2021 10:50:34 AM Depakote ER TB24 Recorded By: Kayla Orr; 10/17/2021 10:50:34 AM Vitals Vital Signs Recorded: 07Gei1539 11:04AMRecorded: 06Wpc4749 11:00AM Heart Rate56, R Wwqnot38, R Radial Jgbsnved566, LUE, Lxkpazh642, RUE Oletbvttr71, LUE, Gkkwiqw42, RUE Height5 ft 2 in5 ft 2 in Hhgrcb388 lb 143 lb BMI Zraowxjomg08.16 kg/m226.16 kg/m2 BSA Calculated1.661.66 Falls Screening (Age 18+)a) No falls within the last year Signatures Electronically signed by : Shy Wolf MD; Dec 26 2021 4:02PM EST (Author) Normal [place] Tobacco Screening.on 022 Adult depression screening assessment No [place] [employer] Work Phone: Fall risk assessment a) No falls within the last year [facility] Work Phone: Tobacco use status CPHS b) No [facility] Work Phone: Vital Signs Date Time Vital Sign Value 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 Facility 07-04-2023 11:15-0500 Body height 157.48 cm Suhas Garrett Other [facility] Other 07-04-2023 11:15-0500 Body mass index (BMI) [Ratio] 28.53 kg/m2 Suhas Garrett Other [facility] Other 07-04-2023 11:15-0500 Body weight 70.76 kg Suhas Garrett Other [facility] Other 07-04-2023 11:15-0500 Diastolic blood pressure 84 mm[Hg] Suhas Garrett Other [facility] Other 07-04-2023 11:15-0500 Respiratory rate 20 /min Suhas Garrett Other [facility] Other 07-04-2023 11:15-0500 SaO2% (BldA) [Mass fraction] 99 % Suhas Garrett Other [facility] Other 07-04-2023 11:15-0500 Systolic blood pressure 150 mm[Hg] Suhas Garrett Other [facility] Other 06-19-2023 11:09-0500 Body height 157.5 cm Shy Wolf MD Work Phone: [facility] 06-19-2023 11:09-0500 Body mass index (BMI) [Ratio] 27.98 kg/m2 Shy Wolf MD Work Phone: [facility] 06-19-2023 11:09-0500 Body weight 69.4 kg Shy Wolf MD Work Phone: [facility] 06-19-2023 11:09-0500 Diastolic blood pressure 76 mm[Hg] Shy Wolf MD Work Phone: [facility] 06-19-2023 11:09-0500 Heart rate 60 /min Shy Wolf MD Work Phone: [facility] 06-19-2023 11:09-0500 Systolic blood pressure 120 mm[Hg] Shy Wolf MD Work Phone: [facility] 05-30-2023 11:00-0500 Body height 157.48 cm Suhas Garrett Other [facility] Other 05-30-2023 11:00-0500 Body mass index (BMI) [Ratio] 27.8 kg/m2 Suhas Garrett Other [facility] Other 05-30-2023 11:00-0500 Body weight 68.95 kg Suhas Garrett Other [facility] Other 05-30-2023 11:00-0500 Diastolic blood pressure 80 mm[Hg] Suhas Garrett Other [facility] Other 05-30-2023 11:00-0500 Respiratory rate 18 /min Suhas Garrett Other [facility] Other 05-30-2023 11:00-0500 SaO2% (BldA) [Mass fraction] 96 % Suhas Garrett Other [facility] Other 05-30-2023 11:00-0500 Systolic blood pressure 122 mm[Hg] Suhas Garrett Other [facility] Other 02-28-2023 10:30-0400 Body height 157.48 cm Suhas Garrett Other [facility] Other 02-28-2023 10:30-0400 Body mass index (BMI) [Ratio] 27.98 kg/m2 Suhas Garrett Other [facility] Other 02-28-2023 10:30-0400 Body weight 69.4 kg Suhas Garrett Other [facility] Other 02-28-2023 10:30-0400 Diastolic blood pressure 76 mm[Hg] Suhas Garrett Other [facility] Other 02-28-2023 10:30-0400 Respiratory rate 16 /min Suhas Garrett Other [facility] Other 02-28-2023 10:30-0400 SaO2% (BldA) [Mass fraction] 91 % Suhas Garrett Other [facility] Other 02-28-2023 10:30-0400 Systolic blood pressure 134 mm[Hg] Suhas Garrett Other [facility] Other 12-24-2022 11:32-0400 Body height 157.48 cm Suhas Garrett Work Phone: [employer] DO Work Phone: 12-24-2022 11:32-0400 Body mass index (BMI) [Ratio] 27.07 kg/m2 Suhas Garrett Work Phone: [facility] 250 DO Work Phone: 12-24-2022 11:32-0400 Body surface area Derived from formula 1.68 m2 Suhas Garrett Work Phone: [facility] 250 DO Work Phone: 12-24-2022 11:32-0400 Body weight 67.13 kg Suhas Garrett Work Phone: [facility] 250 DO Work Phone: 12-24-2022 11:32-0400 Diastolic blood pressure 76 mm[Hg] Suhas Garrett Work Phone: [facility] 250 DO Work Phone: 12-24-2022 11:32-0400 Heart rate 68 /min Suhas Garrett Work Phone: [facility] 250 DO Work Phone: 12-24-2022 11:32-0400 Systolic blood pressure 118 mm[Hg] Suhas Garrett Work Phone: [facility] 250 DO Work Phone: 12-06-2022 10:30-0400 Body height 157.48 cm Suhas Garrett Other [facility] [employer] Other 12-06-2022 10:30-0400 Body mass index (BMI) [Ratio] 27.98 kg/m2 Suhas Garrett Other [facility] Other 12-06-2022 10:30-0400 Body weight 69.4 kg Suhas Garrett Other [facility] Other 12-06-2022 10:30-0400 Diastolic blood pressure 70 mm[Hg] Suhas Garrett Other [facility] Other 12-06-2022 10:30-0400 Respiratory rate 16 /min Suhasraquel Mayoadan Other [facility] Other 12-06-2022 10:30-0400 SaO2% (BldA) [Mass fraction] 98 % Suhas Garrett Other [facility] Other 12-06-2022 10:30-0400 Systolic blood pressure 146 mm[Hg] Suhas Garrett Other [facility] Other 09-20-2022 11:45-0400 Body height 157.48 cm Suhas Garrett Other [facility] Other 09-20-2022 11:45-0400 Body mass index (BMI) [Ratio] 26.34 kg/m2 Suhas Ugo Other [facility] Other 09-20-2022 11:45-0400 Body weight 65.32 kg Suhas Ugo Other [facility] Other 09-20-2022 11:45-0400 Diastolic blood pressure 70 mm[Hg] Suhas Garrett Other [facility] Other 09-20-2022 11:45-0400 Respiratory rate 16 /min Suhas Garrett Other [facility] Other 09-20-2022 11:45-0400 SaO2% (BldA) [Mass fraction] 98 % Suhas Garrett Other [facility] Other 09-20-2022 11:45-0400 Systolic blood pressure 130 mm[Hg] Suhas Garrett Other [facility] Other 07-22-2022 11:30-0500 Body height 157.48 cm Suhas Garrett Other [facility] Other 07-22-2022 11:30-0500 Body mass index (BMI) [Ratio] 26.85 kg/m2 Suhas Garrett Other [facility] Other 07-22-2022 11:30-0500 Body weight 66.59 kg Suhas Garrett Other [facility] Other 07-22-2022 11:30-0500 Diastolic blood pressure 70 mm[Hg] Suhas Garrett Other [facility] Other 07-22-2022 11:30-0500 Respiratory rate 16 /min Suhas Garrett Other [facility] Other 07-22-2022 11:30-0500 SaO2% (BldA) [Mass fraction] 98 % Suhas Garrett Other [facility] Other 07-22-2022 11:30-0500 Systolic blood pressure 122 mm[Hg] Suhas Garrett Other [facility] Other 04-17-2022 11:45-0500 Body height 157.48 cm Suhas Garrett Other [facility] Other 04-17-2022 11:45-0500 Body mass index (BMI) [Ratio] 26.88 kg/m2 Suhas Garrett Other [facility] Other 04-17-2022 11:45-0500 Body weight 66.68 kg Suhas Garrett Other [facility] Other 04-17-2022 11:45-0500 Diastolic blood pressure 72 mm[Hg] Suhas Garrett Other [facility] Other 04-17-2022 11:45-0500 Respiratory rate 16 /min Suhas Garrett Other [facility] Other 04-17-2022 11:45-0500 SaO2% (BldA) [Mass fraction] 99 % Suhas Garrett Other [facility] Other 04-17-2022 11:45-0500 Systolic blood pressure 138 mm[Hg] Suhas Garrett Other [facility] Other 02-22-2022 10:15-0400 Body height 157.48 cm Suhas Garrett Other [facility] Other 02-22-2022 10:15-0400 Body mass index (BMI) [Ratio] 27.07 kg/m2 Suhas Garrett Other [facility] Other 02-22-2022 10:15-0400 Body weight 67.13 kg Suhas Garrett Other [facility] Other 02-22-2022 10:15-0400 Diastolic blood pressure 70 mm[Hg] Suhas Garrett Other [facility] Other 02-22-2022 10:15-0400 Respiratory rate 16 /min Suhas Garrett Other [facility] Other 02-22-2022 10:15-0400 SaO2% (BldA) [Mass fraction] 97 % Suhas Garrett Other [facility] Other 02-22-2022 10:15-0400 Systolic blood pressure 122 mm[Hg] Suhas Garrett Other [facility] Other 02-21-2022 10:45-0400 70 1 Suhas Garrett Work Phone: [facility] [address] [place] Work Phone: Comment on above: [id number] 02-14-2022 15:45-0400 Body height 157.48 cm Suhas Garrett Other [facility] Other 02-14-2022 15:45-0400 Body mass index (BMI) [Ratio] 26.7 kg/m2 Suhas Garrett Other [facility] Other 02-14-2022 15:45-0400 Body weight 66.23 kg Suhas Garrett Other [facility] Other 02-14-2022 15:45-0400 Diastolic blood pressure 72 mm[Hg] Suhas Garrett Other [facility] Other 02-14-2022 15:45-0400 Respiratory rate 16 /min Suhas Garrett Other [facility] Other 02-14-2022 15:45-0400 SaO2% (BldA) [Mass fraction] 96 % Suhas Garrett Other [facility] Other 02-14-2022 15:45-0400 Systolic blood pressure 132 mm[Hg] Suhas Garrett Other [facility] Other 12-26-2021 11:04-0400 Body height 157.48 cm Suhas Garrett Work Phone: [facility] 250 DO Work Phone: 12-26-2021 11:04-0400 Body mass index (BMI) [Ratio] 26.16 kg/m2 Suhas Garrett Work Phone: [facility] 250 DO Work Phone: 12-26-2021 11:04-0400 Body surface area Derived from formula 1.66 m2 Suhas Garrett Work Phone: [facility] 250 DO Work Phone: 12-26-2021 11:04-0400 Body weight 64.86 kg Suhas Garrett Work Phone: [facility] 250 DO Work Phone: 12-26-2021 11:04-0400 Diastolic blood pressure 68 mm[Hg] Suhas Garrett Work Phone: [facility] 250 DO Work Phone: 12-26-2021 11:04-0400 Heart rate 56 /min Suhas Garrett Work Phone: [facility] 250 DO Work Phone: 12-26-2021 11:04-0400 Systolic blood pressure 126 mm[Hg] Suhas Garrett Work Phone: [facility] 250 DO Work Phone: 12-26-2021 11:00-0400 Diastolic blood pressure 70 mm[Hg] Suhas Mayos Work Phone: [facility] 250 DO Work Phone: 12-26-2021 11:00-0400 Systolic blood pressure 130 mm[Hg] Suhas Garrett Work Phone: [facility] 250 DO Work Phone: 12-13-2021 11:39-0400 Diastolic blood pressure 80 mm[Hg] Suhas Garrett Work Phone: [facility] Work Phone: 12-13-2021 11:39-0400 Systolic blood pressure 170 mm[Hg] Suhas Garrett Work Phone: [facility] Work Phone: 12-13-2021 11:22-0400 Diastolic blood pressure 80 mm[Hg] Suhas Garrett Work Phone: [facility] Work Phone: 12-13-2021 11:22-0400 Systolic blood pressure 158 mm[Hg] Suhas Mayoadan Work Phone: [facility] Work Phone: 12-13-2021 11:17-0400 Body height 157.48 cm Suhas Hoffman Ugo Work Phone: [facility] Work Phone: 12-13-2021 11:17-0400 Body mass index (BMI) [Ratio] 26.52 kg/m2 Suhas Garrett Work Phone: [facility] Work Phone: 12-13-2021 11:17-0400 Body surface area Derived from formula 1.67 m2 Suhas Garrett Work Phone: [facility] Work Phone: 12-13-2021 11:17-0400 Body weight 65.77 kg Suhas Garrett Work Phone: [facility] Work Phone: 12-13-2021 11:17-0400 Diastolic blood pressure 80 mm[Hg] Suhas Garrett Work Phone: [facility] Work Phone: 12-13-2021 11:17-0400 Heart rate 60 /min Suhas Garrett Work Phone: [facility] Work Phone: 12-13-2021 11:17-0400 Systolic blood pressure 160 mm[Hg] Suhas Garrett Work Phone: [facility] Work Phone: 10-01-2021 13:30-0400 Body height 157.48 cm Suhas Garrett Other [facility] Other 10-01-2021 13:30-0400 Body mass index (BMI) [Ratio] 26.34 kg/m2 Suhas Garrett Other [facility] Other 10-01-2021 13:30-0400 Body weight 65.32 kg Suhas Garrett Other [facility] Other 10-01-2021 13:30-0400 Diastolic blood pressure 72 mm[Hg] Suhas Garrett Other [facility] Other 10-01-2021 13:30-0400 Respiratory rate 18 /min Suhas Garrett Other [facility] Other 10-01-2021 13:30-0400 SaO2% (BldA) [Mass fraction] 99 % Suhas Garrett Other [facility] Other 10-01-2021 13:30-0400 Systolic blood pressure 130 mm[Hg] Suhas Garrett Other [facility] Other 08-02-2021 13:30-0500 Body height 157.48 cm Suhas Garrett Other [facility] Other 08-02-2021 13:30-0500 Body mass index (BMI) [Ratio] 26.52 kg/m2 Suhasraquel Mayoadan Other [facility] Other 08-02-2021 13:30-0500 Body weight 65.77 kg Suhasraquel Garrett Other [facility] Other 08-02-2021 13:30-0500 Diastolic blood pressure 70 mm[Hg] Suhas Garrett Other [facility] Other 08-02-2021 13:30-0500 Respiratory rate 16 /min Suhas Garrett Other [facility] Other 08-02-2021 13:30-0500 SaO2% (BldA) [Mass fraction] 99 % Suhas Gaeladan Other [facility] Other 08-02-2021 13:30-0500 Systolic blood pressure 118 mm[Hg] Suhas Garrett Other [facility] Other 04-26-2021 13:30-0500 Body height 157.48 cm Suhas Ugo Other [facility] Other 04-26-2021 13:30-0500 Body mass index (BMI) [Ratio] 25.97 kg/m2 Suhas Ugo Other [facility] Other 04-26-2021 13:30-0500 Body weight 64.41 kg Suhas Garrett Other [facility] Other 04-26-2021 13:30-0500 Diastolic blood pressure 74 mm[Hg] Suhas Garrett Other [facility] Other 04-26-2021 13:30-0500 Respiratory rate 17 /min Suhas Garrett Other [facility] Other 04-26-2021 13:30-0500 SaO2% (BldA) [Mass fraction] 98 % Suhas Ugo Other [facility] Other 04-26-2021 13:30-0500 Systolic blood pressure 120 mm[Hg] Suhas Garrett Other [facility] Other Encounters Encounter Date Encounter Type Care Provider Facility Start: 07-28-2024 End: 07-28-2024 ambulatory Suhas Garrett Facility:[facility] Start: 05-25-2024 End: 05-25-2024 ambulatory Suhas Garrett Facility:[facility] Start: 04-16-2024 End: 04-16-2024 ambulatory [facility] Start: 02-23-2024 End: 02-23-2024 ambulatory Gloria Weston MD Facility:[facility] Start: 02-11-2024 End: 02-11-2024 ambulatory [facility] Start: 11-24-2023 End: 11-24-2023 ambulatory Gloria Weston MD Facility:[facility] Start: 11-17-2023 End: 11-17-2023 ambulatory Gloria Weston MD Facility:[facility] Start: 10-20-2023 End: 10-20-2023 ambulatory Gloria Weston MD Facility:[facility] Start: 10-14-2023 End: 10-14-2023 ambulatory Suhas Garrett Facility:[facility] Start: 09-29-2023 End: 09-29-2023 ambulatory Gloria Weston MD Facility:[facility] Start: 09-08-2023 End: 09-08-2023 ambulatory Andshabana Weston MD Facility:[facility] Start: 09-03-2023 End: 09-03-2023 ambulatory Suhas Garrett Facility:[facility] Start: 08-25-2023 End: 08-25-2023 ambulatory Gloria Weston MD Facility: [facility] Start: 07-18-2023 End: 07-18-2023 ambulatory Suhas Garrett Other [facility] Other Start: 07-18-2023 Telephone encounter Suhas Ugo [facility] Start: 07-15-2023 End: 07-15-2023 ambulatory Suhas Garrett Other [facility] Other Start: 07-15-2023 Telephone encounter Suhas Ugo [facility] Start: 07-10-2023 End: 07-10-2023 ambulatory Suhas Garrett Other [facility] Other Start: 07-10-2023 Telephone encounter Suhasraquel Garrett [facility] Start: 07-07-2023 End: 07-07-2023 ambulatory Suhasraquel Garrett Other [facility] Other Start: 07-07-2023 Telephone encounter Suhasraquel Mayoadan [facility] Start: 07-04-2023 End: 07-04-2023 ambulatory Suhas Gaeladan Other [facility] Other Start: 07-04-2023 Office outpatient vi sit 15 minutes Suhas Garrett [facility] Start: 06-19-2023 Telephone encounter Suhasraquel Garrett [facility] Start: 06-19-2023 End: 06-19-2023 Office outpatient visit 25 minutes Shy Wolf MD Work Phone: [facility] Comment on above: Aortic valve stenosi s, etiology of cardiac valve disease unspecified; Essential hypertension; Hyperlipidemia, unspecified hyperlipidemia type; Never smoked any substance Start: 06-19-2023 End: 06-19-2023 ambulatory SHY WOLF [facility] Other Start: 05-30-2023 End: 05-30-2023 ambulatory Suhas Garrett Other [facility] Other Start: 05-30-2023 Office outpatient vi sit 25 minutes Suhas Garrett [facility] Start: 05-28-2023 End: 05-28-2023 ambulatory Suhas Garrett Other [facility] Other Start: 05-28-2023 Telephone encounter Suhas Garrett [facility] Start: 04-23-2023 End: 04-23-2023 ambulatory Suhas Garrett Other [facility] Other Start: 04-23-2023 Telephone encounter Suhas Garrett [facility] Start: 04-18-2023 End: 04-18-2023 ambulatory Suhas Garrett Other [facility] Other Start: 04-18-2023 Telephone encounter Suhas Garrett [facility] Start: 03-02-2023 Chart Update Suhas Garrett Work Phone: [place] [address] DO Work Phone: Start: 02-28-2023 End: 02-28-2023 ambulatory Suhas Garrett Other [facility] Other Start: 02-28-2023 Office outpatient vi sit 15 minutes Suhas Garrett [facility] Start: 02-26-[address] Suhas Garrett Facility:[id number] Start: 01-27-2023 End: 01-27-2023 ambulatory Suhas Garrett Other [facility] Other Start: 01-27-2023 Telephone encounter Suhas Garrett [facility] Start: 12-24-2022 Office outpatient vi sit 25 minutes Suhas Garrett Work Phone: [facility] [address] DO Work Phone: Start: 12-24-[address] Shy Wolf Facility: Start: 12-06-2022 End: 12-06-2022 ambulatory Suhas Garrett Other [facility] Other Start: 12-06-2022 Office outpatient vi sit 15 minutes Suhas Garrett [facility] Start: 09-20-2022 End: 09-20-2022 ambulatory Suhas Garrett Other [facility] Other Start: 09-20-2022 Office outpatient vi sit 15 minutes Suhas Garrett [facility] Start: 08-14-2022 End: 08-14-2022 ambulatory Suhas Garrett Other [facility] Other Start: 08-14-2022 Telephone encounter Suhas Garrett [facility] Start: 07-22-2022 End: 07-22-2022 ambulatory Suhas Garrett Other [facility] Other Start: 07-22-2022 Office outpatient vi sit 15 minutes Suhas Mayos [facility] Start: 04-17-2022 End: 04-17-2022 ambulatory Suhas Garrett Other [facility] Other Start: 04-17-2022 Office outpatient vi sit 15 minutes Suhas Mayos [facility] Start: 04-10-2022 End: 04-10-2022 ambulatory Suhas Garrett Other [facility] Other Start: 04-10-2022 Telephone encounter Suhas Ugo [facility] Start: 04-03-2022 End: 04-03-2022 ambulatory Suhas Garrett Other [facility] Other Start: 04-03-2022 Telephone encounter Suhas Garrett [facility] Start: 04-02-2022 End: 04-02-2022 ambulatory Suhas Garrett Other [facility] Other Start: 04-02-2022 Telephone encounter Suhas Garrett [facility] Start: 02-26-2022 End: 02-26-2022 ambulatory Suhas Garrett Other [facility] Other Start: 02-26-2022 Telephone encounter Suhas Garrett [facility] Start: 02-25-2022 End: 02-25-2022 ambulatory Suhas Garrett Other [facility] Other Start: 02-25-2022 Telephone encounter Suhas Garrett [facility] Start: 02-22-2022 End: 02-22-2022 ambulatory Suhas Garrett Other [facility] Other Start: 02-22-2022 Office outpatient vi sit 25 minutes Suhas Garrett [facility] Start: 02-21-2022 Patient encounter procedure Suhas Garrett Work Phone: [facility] [address] [place] Work Phone: Start: 02-20-2022 End: 02-21-2022 ambulatory MAYO CARBAJAL Facility: Start: 02-14-2022 End: 02-14-2022 ambulatory Suhas Garrett Other [facility] Other Start: 02-14-2022 Office outpatient vi sit 25 minutes Suhas Garrett [facility] [place] Start: 01-11-2022 End: 01-11-2022 ambulatory Suhas Garrett Other [facility] Other Start: 01-11-2022 Nursing evaluation o f patient and report Suhas Garrett [facility] [place] Start: 01-11-2022 Telephone encounter Suhas Garrett [facility] [place] Start: 12-26-2021 Office outpatient vi sit 10 minutes Suhas Garrett Work Phone: [facility] [address] DO Work Phone: Start: 12-26-[address] Suhas Garrett Facility: Start: 12-20-2021 End: 12-20-2021 ambulatory Suhas Garrett Other [facility] Other Start: 12-20-2021 Telephone encounter [facility] Start: 12-13-2021 Office outpatient vi sit 25 minutes Suhas Garrett Work Phone: [facility] Work Phone: Start: 11-02-2021 End: 11-02-2021 ambulatory Suhas Garrett Other [facility] Other Start: 11-02-2021 Telephone encounter Suhas Garrett [facility] [place] Start: 10-01-2021 End: 10-01-2021 ambulatory Suhas Garrett Other [facility] Other Start: 10-01-2021 Office outpatient vi sit 15 minutes Suhas Garrett [facility] [place] Start: 09-10-2021 End: 09-10-2021 ambulatory Suhas Garrett Other [facility] Other Start: 09-10-2021 Telephone encounter Suhas Garrett [facility] [place] Start: 08-20-2021 End: 08-20-2021 ambulatory Suhas Garrett Other [facility] Other Start: 08-20-2021 Telephone encounter [facility] Start: 08-02-2021 End: 08-02-2021 ambulatory Suhas Garrett Other [facility] Other Start: 08-02-2021 Office outpatient vi sit 15 minutes Suhas [facility] Start: 07-25-2021 End: 07-25-2021 ambulatory Suhas Garrett Other [facility] Other Start: 07-25-2021 Telephone encounter Suhas Garrett [facility] Start: 05-08-2021 End: 05-08-2021 ambulatory Suhas Garrett Other [facility] Other Start: 05-08-2021 Telephone encounter Suhas Garrett [facility] Start: 04-26-2021 End: 04-26-2021 ambulatory Suhas Garrett Other [facility] Other Start: 04-26-2021 Office outpatient vi sit 25 minutes Suhas Garrett [facility] Procedures Date Procedure Procedure Detail [...] DTaP/Tdap/Td Vaccines (2 - Td or Tdap) [facility] Start: 03-16-2024 End: 03-16-2024 Patient encounter procedure 03/16/2024 11:20 AM EDT Office Visit [facility] [address] [place] [address] Shy Wolf MD [address] [place] [address] [facility] Start: 02-11-2024 End: 02-11-2024 Patient encounter procedure 02/11/2024 12:30 PM EDT Appointment [facility] [address] [place] [address] [facility] Start: 02-08-2024 End: 06-19-2025 [facility] Transthoracic Transthoracic Echo (TTE) Complete Echocardiography Routine Aortic valve stenosis, etiology of cardiac valve disease unspecified Expected: 02/08/2024 (Approximate), Expires: 06/19/[address] [facility] Service Area Work Phone: Comment on above: Expected: 02/08/2024 (Approximate), Expires: 06/19/2025 Start: 06-19-2023 FUV, Provider: Shy Wolf, Status: Pen, Time: 11:00 AM FUV, Provider: Shy Wolf, Status: Pen, [facility]: [facility] Start: 05-28-2023 COVID-19 Vaccine (5 - Moderna series) COVID-19 Vaccine (5 - Moderna series) [facility] Start: 02-26-2023 ECHO, Provider: SAMUEL HHVI ULTRASOUND , Status: Pen, Time: 10:45 AM ECHO, Provider: SAMUEL YII ULTRASOUND , Status: Pen, Time: 10:45 AM [facility] [address] DO Work Phone: Start: 12-24-2022 FUV, Provider: Shy Wolf, Status: Pen, Time: 11:20 AM FUV, Provider: Shy Wolf, Status: Pen, Time: 11:20 AM [facility] Work Phone: Start: 02-21-2022 CAROTID, Provider: SAMUEL HHVI ULTRASOUND 01,[id number], Status: Pen, Time: 12:30 PM CAROTID, Provider: SAMUEL HHVI ULTRASOUND 01,[id number], Status: Pen, Time: 12:30 PM [facility] Work Phone: Start: 02-21-2022 ECHO, Provider: SAMUEL HHVI ULTRASOUND 01,[id number], Status: Pen, Time: 10:45 AM ECHO, Provider: SAMUEL HHVI ULTRASOUND 01,[id number], Status: Pen, Time: 10:45 AM [facility] Work Phone: Start: 01-17-2022 CAROTID, Provider: SAMUEL HHVI ULTRASOUND 01,[id number], Status: Pen, Time: 2:30 PM CAROTID, Provider: SAMUEL HHVI ULTRASOUND 01,[id number], Status: Pen, Time: 2:30 PM [facility] Work Phone: Start: 01-17-2022 ECHO, Provider: SAMUEL HHVI ULTRASOUND 01,[id number], Status: Pen, Time: 1:30 PM ECHO, Provider: SAMUEL HHVI ULTRASOUND 01,[id number], Status: Pen, Time: 1:30 PM [facility] Work Phone: Start: 12-26-2021 NURSEVST, Provider: MAGDA DANIEL [employer] RESOURCES INSPECTOR 1,[id number], Status: Pen, Time: 11:00 AM NURSEVST, Provider: MAGDA DANIEL [employer] INSPECTOR 1,[id number], Status: Pen, Time: 11:00 AM [facility] Work Phone: Start: 1935 Lipid panel Lipid Panel [facility] Start: 1935 Medicare Annual Wellness Visit Medicare Annual Wellness Visit (AWV) [facility] Start: 1935 Thyroid stimulating hormone measurement TSH Level [facility] Immunizations Immunization Date Immunization Notes Care Provider Raciel camacho 04-17-2022 Moderna COVID-19 Bivalent 50 MCG/0.5ML Intramuscular Suspension Suhas Garrett Work Phone: [facility] [address] DO Work Phone: 03-21-2022 Fluad Quadrivalent 0 .5 ML Intramuscular Prefilled Syringe Suhas [facility] Work Phone: 03-21-2022 influenza, seasonal, injectable Suhas Garrett Other [facility] Other 11-14-2021 Moderna COVID-19 Vaccine 100 MCG/0.5ML Intramuscular Suspension Suhas Garrett Work Phone: [facility] Work Phone: 04-05-2021 Moderna COVID-19 Vaccine 100 MCG/0.5ML Intramuscular Suspension Suhas P Ugo Work Phone: [facility] Work Phone: 03-19-2021 influenza, seasonal, injectable Suhas Garrett Other [facility] Other 08-08-2020 Moderna COVID-19 Vaccine 100 MCG/0.5ML Intramuscular Suspension Suhas P Ugo Work Phone: [facility] Work Phone: 07-11-2020 Moderna COVID-19 Vaccine 100 MCG/0.5ML Intramuscular Suspension Suhas P Gaels Work Phone: [facility] Work Phone: 04-28-2020 pneumococcal polysaccharide vaccine, 23 valent Suhas Garrett Other [facility] Other 03-06-2020 Seasonal trivalent influenza vaccine, adjuvanted, preservative free Suhas P Gaels Work Phone: [facility] Work Phone: 03-06-2020 influenza, seasonal, injectable Suhasraquel Mayos Other [facility] Other 02-08-2020 influenza virus vaccine, unspecified formulation Suhas P Kuns Work Phone: [facility] Work Phone: 02-08-2020 influenza, seasonal, injectable Suhas Kuns Other [facility] Other 05-04-2019 zoster vaccine recombinant Suhas Mayos Other [facility] Other 03-09-2019 influenza, high dose seasonal, preservative-free Suhas P Kuns Work Phone: [facility] Work Phone: 03-04-2019 influenza, seasonal, injectable Suhas Mayos Other [facility] Other 02-04-2019 zoster vaccine recombinant Suhas Mayos Other [facility] Other 05-12-2018 tetanus toxoid, redu bety diphtheria toxoid, and acellular pertussis vaccine, adsorbed Suhas Mayos Other [facility] Other 03-16-2018 Seasonal trivalent influenza vaccine, adjuvanted, preservative free Shy Wolf MD Work Phone: [facility] Work Phone: 03-09-2018 influenza virus vaccine, unspecified formulation Suhas P Kuns Work Phone: [facility] Work Phone: 04-09-2017 influenza virus vaccine, unspecified formulation Suhas P Kuns Work Phone: [facility] Work Phone: 03-28-2017 Seasonal trivalent influenza vaccine, adjuvanted, preservative free Suhas P Ugo Work Phone: [facility] Work Phone: 05-23-2016 pneumococcal conjuga te vaccine, 13 valent Suhas Kuns Other [facility] [facility] Other 04-01-2016 Seasonal trivalent influenza vaccine, adjuvanted, preservative free Suhas P Gaels Work Phone: [facility] Work Phone: 03-09-2016 influenza virus vaccine, unspecified formulation Suhas Dalton Garrett Work Phone: [facility] Work Phone: 03-09-2016 pneumococcal conjuga te vaccine, 13 valent Suhas P Kuns Work Phone: [facility] Work Phone: 04-07-2015 influenza, injectabl e, quadrivalent, contains preservative Suhas P Ugo Work Phone: [facility] Work Phone: 03-09-2015 influenza virus vaccine, unspecified formulation Suhas P Ugo Work Phone: [facility] Work Phone: 04-05-2014 influenza, seasonal, injectable, preservative free Suhas P Gaels Work Phone: [facility] Work Phone: 03-09-2014 influenza virus vaccine, whole virus Suhas Garrett Work Phone: [facility] Work Phone: 03-23-2013 influenza, seasonal, injectable Suhas P Gaels Work Phone: [facility] Work Phone: 03-09-2013 influenza virus vaccine, unspecified formulation Suhas P Ugo Work Phone: [facility] Work Phone: 04-14-2012 influenza, injectabl e, quadrivalent, contains preservative Suhas Garrett Other [facility] Other 06-09-2011 influenza virus vaccine, unspecified formulation Suhas Garrett Work Phone: [facility] Work Phone: 06-09-2010 influenza virus vaccine, unspecified formulation Suhas Garrett Work Phone: [facility] Work Phone: 06-09-2009 influenza virus vaccine, unspecified formulation Suhas Garrett Work Phone: [facility] Work Phone: 05-30-2009 novel [id number], preservative-free, injectable Suhas Garrett Work Phone: [facility] Work Phone: 10-19-2007 varicella virus vaccine Belkys Garrett Work Phone: [facility] Work Phone: 06-09-2006 pneumococcal polysaccharide vaccine, 23 valent Suhas Garrett Work Phone: [facility] Work Phone: Payers Date Payer Category Payer Self-pay 2022 Private Health Insurance [id number] 2001 Medicare MEDICARE MEDICAR E RAILROAD [id number] 2001-Present [address] [place] [address] [id number] 2001 Unknown 1959 Medicare [id number] 1959 Private Health Insurance [id number] 1936 Unknown [id number] .593 1936 Unknown [id number] [id number] .356 1936 Unknown [id number] [id number] .356 1936 Unknown [id number] [id number] .1068 1936 Unknown [id number] [id number] .1246 1936 Unknown [id number] 2.840.1.656600.3.579.2 .196 1936 Unknown [id number] 2.840.1.513118.3.579.2 .196 1936 Unknown [id number] 2.840.1.551028.3.579.2 .196 1936 Unknown [id number] 2.840.1.324060.3.579.2 .196 1936 Unknown [id number] 2.840.1.654959.3.579.2 .196 1936 Unknown [id number] 2.840.1.688233.3.579.2 .196 1936 Unknown [id number] 2.840.1.719529.3.579.2 .196 1936 Unknown [id number] [id number] .1244 1936 Unknown [id number] [id number] .1244 Unknown [id number] [id number] .531 Unknown [id number] 2.16.840.1.573890.3.579.2 .531 Unknown [id number] .531 Unknown [id number] [id number] .531 Social History Date Type Detail Facility Unknown if ever smoked [facility] Other Start: 06-19-2023 Sex Assigned At [facility] [employer] Other Start: 06-19-2023 Caffeine use Caffeine use [facility] Work Phone: Start: 06-19-2023 Tobacco smoking status NHIS Never smoked tobacco [facility] Work Phone: Start: 06-19-2023 Tobacco use and exposure Smokeless tobacco non-user [facility] Work Phone: Start: 1935 Sex [facility] At [facility] Work Phone: Start: 06-09-2023 End: 06-19-2023 Exposure to SARS-CoV-2 (event) Not sure [facility] Clinical Notes 02-15-2015 to 07-18-2023 Note Date & Type Note Facility 07-18-2023 Evaluation note Encounter Date Diagnosis Assessment Notes Jul, PMR (polymya lgia rheumati ca) (ICD-10 - M35.3) [facility] Other 02-06-2024 Evaluation note* Encounter Date Diagnosis Assessment Notes Treatment Notes Treatment Clinical Notes Jul, PMR (polymyalgia rheumatica) (ICD-10 - M35.3) [facility] Other 02-01-2024 Evaluation note* Encounter Date Diagnosis Assessment Notes Treatment Notes Treatment Clinical Notes Jul, Hypothyroidism (ICD-10 - E03.9) [facility] Other 01-29-2024 Evaluation note* Encounter Date Diagnosis Assessment Notes Treatment Notes Treatment Clinical Notes Jun, Hypothyroidism (ICD- 10 - E03.9) Jun, Hyperthyroidism (ICD-10 - E05.90) [facility] Other 01-26-2024 Evaluation note* Encounter Date Diagnosis [...] medications in combination with eachother. 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 [...] requires sooner she is welcome to call. [facility] Other 01-11-2024 Evaluation note* Encounter Date Diagnosis Assessment Notes Treatment Notes Treatment Clinical Notes Jun, PMR (polymyalgia rheumatica) (ICD-10 - M35.3) [facility] Other 01-11-2024 History of Present illness Narrative* [...] being tapered gradually Shy Wolf MD, [facility] Review of Systems All other [...] of Shy Wolf MD. [facility] Work Phone: 1(520) 883-447401-11-2024 Instructions* Patient Instructions* Yevgeniy Cortez MA - [...] time of your visit. [facility] Work Phone: 1(394) 891-646612-22-2023 Evaluation note* Encounter Date Diagnosis Assessment Notes [...] recommend the patient get the RSV vaccine. [facility] Other 12-20-2023 Evaluation note* Encounter Date Diagnosis Assessment Notes Treatment Notes Treatment Clinical Notes May, Hypertension (ICD-10 - I10) May, Hypothyroidism (ICD-10 - E03.9) [facility] Other 11-10-2023 Evaluation note* Encounter Date Diagnosis Assessment Notes Treatment Notes Treatment Clinical Notes Apr, PMR (polymyalgia rheumatica) (ICD-10 - M35.3) [facility] Other 09-22-2023 Evaluation note* Encounter Date Diagnosis Assessment Notes Treatment Notes Treatment Clinical Notes Feb, PMR (polymyalgia rheumatica) (ICD-10 - M35.3) She was encouraged to take 2.5mg daily. Patient is agreeable. Feb, Hypertension (ICD-10 - I10) Blood pressure is satisfactory, she is to follow with cardiology as scheduled. [facility] Other 08-21-2023 Evaluation note* Encounter Date Diagnosis Assessment Notes Treatment Notes Treatment Clinical Notes Jan, Hypertension (ICD-10 - I10) [facility] Other 06-30-2023 Evaluation note* Encounter Date Diagnosis [...] would like to do. Patient is agreeable. [facility] Other 04-14-2023 Evaluation note* Encounter Date Diagnosis [...] tablets daily. We will continue to monitor. [facility] Other 03-08-2023 Evaluation note* Encounter Date Diagnosis Assessment Notes Treatment Notes Treatment Clinical Notes Aug, PMR (polymyalgia rheumatica) (ICD-10 - M35.3) [facility] Other 02-13-2023 Evaluation note* Encounter Date Diagnosis [...] states she has an upcoming appointment with curtain mender and she will discuss making medication changes at that time. [facility] Other 11-09-2022 Evaluation note* Encounter Date Diagnosis [...] can cut Apr, Hyperlipidemia (ICD-10 - E78.5) [facility] Other 11-02-2022 Evaluation note* Encounter Date Diagnosis Assessment Notes Treatment Notes Treatment Clinical Notes Apr, PMR (polymyalgia rheumatica) (ICD-10 - M35.3) [facility] Other 10-26-2022 Evaluation note* Encounter Date Diagnosis Assessment Notes Treatment Notes Treatment Clinical Notes Mar, Lumbar back pain (ICD-10 - M54.50) [facility] Other 09-20-2022 Evaluation note* Encounter Date Diagnosis Assessment Notes Treatment Notes Treatment Clinical Notes Feb, Elevated liver function tests (ICD-10 - R79.89) [facility] Other 09-16-2022 Evaluation note* Encounter Date Diagnosis Assessment Notes Treatment Notes Treatment Clinical Notes Feb, Acute pain of left shoulder (ICD-10 - M25.512) [place] report reviewed from 02/20/22 . The [...] pain (ICD-10 - R10.13) The patient advised [place] could be causing her GI upset , [...] month Bon[place] at her next office visit. [facility] Other 09-08-2022 Evaluation note* Encounter Date Diagnosis [...] (ICD-10 - M85.80) Noted on Lumbar x-ray. [facility] Other 08-05-2022 Evaluation note* Encounter Date Diagnosis Assessment Notes Treatment Notes Treatment Clinical Notes Jan, COVID-19 (ICD-10 - U07.1) [facility] Other 08-05-2022 Evaluation note* Encounter Date Diagnosis Assessment Notes Treatment Notes Treatment Clinical Notes Jan, Cough (ICD-10 - R05.9) In house covid test is positive. Treatment plan discussed in TE. [facility] Other 07-14-2022 Evaluation note* Encounter Date Diagnosis Assessment Notes Treatment Notes Treatment Clinical Notes Dec, PMR (polymyalgia rheumatica) (ICD-10 - M35.3) [facility] Other 05-27-2022 Evaluation note* Encounter Date Diagnosis Assessment Notes Treatment Notes Treatment Clinical Notes October, PMR (polymyalgia rheumatica) (ICD-10 - M35.3) [facility] Other 04-25-2022 Evaluation note* Encounter Date Diagnosis [...] The patient encourged to continue following with curtain mender annually in December as scheduled. I did forward a copy of most current blood work results . [facility] Other 04-04-2022 Evaluation note* Encounter Date Diagnosis Assessment Notes Treatment Notes Treatment Clinical Notes Sep, PMR (polymyalgia rheumatica) (ICD-10 - M35.3) Sep, Hypertension (ICD-10 - I10) [facility] Other 02-24-2022 Evaluation note* Encounter Date Diagnosis [...] if needed. We will continue to montior. [facility] Other 02-16-2022 Evaluation note* Encounter Date Diagnosis Assessment Notes Treatment Notes Treatment Clinical Notes Jul, PMR (polymyalgia rheumatica) (ICD-10 - M35.3) [facility] Other 11-30-2021 Evaluation note* Encounter Date Diagnosis Assessment Notes Treatment Notes Treatment Clinical Notes Apr, PMR (polymyalgia rheumatica) (ICD-10 - M35.3) [facility] Other 11-18-2021 Evaluation note* Encounter Date Diagnosis [...] Hypothyroidism (ICD-10 - E03.9) Blood work ordered. [facility] Other [id number] History general Narrative - Reported* Type Description Date Medical History Shingles Medical History 2010, 02-15-15-mammogram-negativ e Medical History 01/[id number]-ehiyvyglwos-vujfoo, repea t in 3 yrs Medical History 03/2017- colonoscopy- normal Medical History f/u with cardiology NO Medical History ECHO 09/2016 Surgical History Appendectomy Surgical History Gallbladder Removal Surgical History Ovarian Cyst Removal Surgical History Coccyx repair Surgical History Cataracts Bilateral Eyes Surgical History thyroidectomy Dr. Forbes 10/14/2019 Hospitalization History Childbirth x5 Hospitalization History See Above [facility] Other Evaluation noteNo [employer] Other Evaluation note* Diagnosis Aortic valve stenosis, etiology of cardiac valve disease unspecified Essential hypertension Unspecified essential hypertension Hyperlipidemia, unspecified hyperlipidemia type Never smoked any substance documented in this encounter [facility] Work Phone: Chief Complaint * LAVONNE [...] tapered gradually * Shy Wolf MD, [facility] Family History No Family History [...] PMR (polymyalgia rhe umatica) (M35.3) Referral Organization [facility] [place] Referring Provider First Name Suhas Referring Provider Last Name Gaeladan Referring Provider Specialty Family Prac sukhjinder Referred Organization [facility] Referred Address [address] [place], [place],[address] Referred Provider Specialty Rheumatology Referral Priority Routine [...] disease unspecified Procedures Transthoracic Echo (TTE) Complete OR ECHO TTHRC R-T 2D W/WOM-MODE COMPL SPEC&COLR D Shy Wolf MD [address] [facility] [address], [address] [address] Referral ID Status Reason Start Date Expiration Date Visits Requested Visits Authorized Pending Review Perform Procedure 06/19/2023 06/18/2024 1 1 Specialty Diagnoses / Procedures Referred By Contac t Referred To Contact Cardiology Diagnoses Aortic valve stenosis, etiology of cardiac valve disease unspecified Procedures Follow Up In Cardiology Shy Wolf MD [address] [facility] [address] [place] [address] Shy Wolf MD [address] [facility] [address] [place] [address] Referral ID Status Reason Start Date Expiration Date V isits Requested Visits Authorized [id number] Authorized 06/19/2023 06/18/2024 1 1 Additional Source Comments REASON FOR VISIT (unrecogniz ed section and content) Reason Comments Follow-up 6m INFORMATION SOURCE (unrecogn ized section and content) DATE CREATED AUTHOR 03/06/2022 [facility] DATE CREATED AUTHOR AUTHOR'S ORGANIZ ATION 12/25/2022 [facility] DATE CREATED AUTHOR AUTHOR'S ORGANIZ ATION 12/25/2022 [facility] DATE CREATED AUTHOR AUTHOR'S ORGANIZ ATION 03/03/2023 [facility] DATE CREATED AUTHOR AUTHOR'S ORGANIZ ATION 02/17/2024 [facility] DATE CREATED AUTHOR AUTHOR'S ORGANIZ ATION 02/29/2024 [facility] DATE CREATED AUTHOR AUTHOR'S ORGANIZ ATION 04/18/2024 [facility] DATE CREATED AUTHOR AUTHOR'S ORGANIZ ATION 07/29/2024 [facility] Care Teams (unrecognized sec tion and content) [employer] Relationship Specialty Start Date End Date Suhas [...] BE BASED ON THE PRIMARY CLINICAL RECORDS. [facility] [employer] [facility]. provides no warranty or guarantee of the accuracy or completeness of information in this document.
[2024-09-13 10:31] VITALS: BP 189/87; PULSE 62; TEMP 37; O2SAT 99
[2024-09-13 11:14] VITALS: BP 207/85; BP 211/84; PULSE 61; PULSE 64; O2SAT 97; O2SAT 98
[2024-09-13] MEDS: BUPIVACAINE HCL 0.25% PF 25 MG/10 ML VIAL 4 ML INJ (11:16)
[2024-09-13] MEDS: IOHEXOL 240 MG/ML - 10 ML VIAL INJ (11:16)
[2024-09-13] MEDS: METHYLPREDNISOLONE ACETATE 40 MG/ML VIAL INJ (11:17)
[2024-09-13] MEDS: LIDOCAINE HCL 2% 400 MG/20 ML MDV INJ (11:17)
--- NOTE | 2024-09-13 11:23 | W.PM.PROCNOT ---
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 The skin overlying the area was prepped and draped in standard sterile fashion using alcohol.? A 25-gauge needle was inserted towards the left sacroiliac joint under direct fluoroscopic imaging.? Needle tip was advanced until the joint was encountered.? We instilled a total of 2 mL of solution.? The same procedure was then completed on the right side.? Postoperatively needles were removed.? The patient tolerated the procedure well without complication.? The patient reported reduction in pain symptoms postoperatively. Anesthesia: Local Surgeon: Gloria Weston Pathology: none sent Condition: stable Disposition: no change
== END 2024-09-13 11:23 | disposition home or self-care (01) ==
LOC: SURGOUT 09:43
PROVIDERS: PCP Family Medicine; Visit Provider Anesthesiology
DX: M46.1 Sacroiliitis, not elsewhere classified (principal); M53.3 Sacrococcygeal disorders, not elsewhere classified
CPT/HCPCS: 27096; J0665; J1010; Q9966

== ENCOUNTER 2024-09-29 10:32 | Outpatient (OUT) | payer MEDICARE, OTHER, SELFPAY ==
--- NOTE | 2024-09-29 11:00 | PM.CN ---
Consult Note: HPI Data of Consult Patient: known to practice within the last 3 years Requesting Physician: Norma Jimenez NP Primary Care Provider: Suhas Arizmendi DO Consult Narrative Reason for consult: back pain Narrative: 89yof who presents for assessment. chronic neck and low back pain. longstanding hx of pain secondary to degenerative changes, prior cervical and lumbar MRI consistent with multilevel stenosis and spondylosis as well as DDD. Pain today 8/10 in low back, aching. Pain increasing with all activity, pain improved with sitting and a hot shower. pt has a hx of PMR as well. denies falls or injury since last visit. continues to engage in HEP >6 weeks without improvement. recent bilateral SIJ injection providing 50% improvement in SIJ pain per pt. 10-20-23 pt underwent bilateral L4-5 L5-S1 MBB #1 with >80% improvement in pain and functional ability, however #2 provided no relief per pt at that time but she had distracting SIJ pain at that time. cc:: CC: Norma Jimenez NP Review of Systems ROS Status of ROS 10 or more systems reviewed and unremarkable except as noted in history and below Musculoskeletal Reports: back pain, neck pain and joint pain PFSH PFSH Medical History Polymyalgia rheumatica ?M35.3 - Polymyalgia rheumatica (ICD-10) Hyperthyroidism ?E05.90 - Thyrotoxicosis, unspecified without thyrotoxic crisis or storm (ICD-10) Heart murmur ?R01.1 - Cardiac murmur, unspecified (ICD-10) HTN (hypertension) ?I10 - Essential (primary) hypertension (ICD-10) Surgical History 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 - Postprocedural hypothyroidism (ICD-10) Hx of cholecystectomy ?Z90.49 - Acquired absence of other specified parts of digestive tract (ICD-10) History of ovarian cystectomy ?Z98.890 - Other specified postprocedural states (ICD-10) ?Z87.42 - Personal history of other diseases of the female genital tract (ICD-10) History of appendectomy ?Z90.49 - Acquired absence of other specified parts of digestive tract (ICD-10) Social History Little interest or pleasure in doing things: not at all Feeling down, depressed, or hopeless: not at all Meds Home Medications and Allergies Home Medications ?Medication ?Instructions ?Recorded ?Confirmed ?Type amlodipine 10 mg tablet (Norvasc) 10 mg PO DAILY 08/25/23 09/13/24 History aspirin 81 mg capsule 81 mg PO DAILY 08/25/23 09/13/24 History carvedilol 6.25 mg tablet 6.25 mg PO Q12H 08/25/23 09/13/24 History levothyroxine 100 mcg tablet 100 mcg PO DAILY 08/25/23 09/13/24 History losartan 100 1 tab PO DAILY 08/25/23 09/13/24 History mg-hydrochlorothiazide 12.5 mg tablet multivitamin (Daily Multi-Vitamin 1 tab PO DAILY 08/25/23 09/13/24 History tablet) prednisone 2.5 mg tablet mg 11/17/23 History meclizine 25 mg chewable tablet 25 mg PO QID PRN dizziness #12 tabs 08/30/24 09/13/24 Rx (Antivert) ondansetron 4 mg disintegrating 4 mg PO Q6H PRN nausea and 08/30/24 09/13/24 Rx tablet vomiting #12 tabs celecoxib 200 mg capsule (Celebrex) 200 mg PO BID 09/08/24 09/13/24 History Allergies Allergy/AdvReac Type Severity Reaction Status Date / Time amoxicillin Allergy Mild Rash Verified 09/13/24 10:43 divalproex sodium (From Allergy Unknown Unknown Verified 09/13/24 10:43 Depakote) hydrocodone Allergy Unknown Rash Verified 09/13/24 10:43 phenytoin (From Dilantin) Allergy Unknown Unknown Verified 09/13/24 10:43 alendronate sodium (From AdvReac eye pain Verified 09/13/24 10:43 Fosamax) Exam Constitutional Documenting provider has reviewed patient's vital signs: yes Common normals: no apparent distress, oriented x3, healthy appearing, alert and well nourished General appearance: cooperative HENNM Common normals: normocephalic, hearing grossly normal bilaterally and moist oral mucous membranes Head and scalp: normocephalic Eye Common normals: PERRL Pupil: PERRL Neck & C-Spine Common normals: full ROM General: normal visual inspection Chest Common normals: inspection of chest normal Respiratory Common normals: normal respiratory effort, no retractions and no use of accessory muscles Back & Pelvis Lumbar spine/lower back: pain with ROM, lumbar spinal tenderness and paraspinal muscle tenderness Sacroiliac joints: SI joints normal Other: bilateral SIJ negative marisela(patricks), gaenslens, thigh thrust, compression test positive facet loading facet tenderness noted L3-5 strength 5/5 in BLE with intact sensation Extremity Common normals: normal to inspection and full ROM Neuro Common normals: oriented x3, CN's II-XII intact bilaterally, moves all extremities, no focal motor deficits, no sensory deficits noted and deep tendon reflexes 2+ bilaterally Sensorium/orientation: alert Motor exam: strength 5/5 throughout and no movement abnormalities noted Psych Common normals: mental status grossly normal, thought process normal, cooperative, affect normal, speech normal and activity/motor behavior normal Speech: normal speech Thought process: normal thought process Results Additional Findings Additional findings: If on a controlled substance or opioids, I have checked an [place]AR[place] report on this patient and there are no aberrancies noted in the prescribing history.??If on a controlled substance or opioid a drug screen was completed and reviewed within the last year, and if there has not been a drug screen completed we ordered one today to monitor higher risk, state monitored pain medication use. As part of providing excellent, safe, comprehensive care, the following was completed at our patient's visit: 1. A medication reconciliation and review to ensure accurate knowledge of current/active medications, including asking our patients to inform us about any [id number] medications or herbal remedies/nutritional supplements/alternative remedies. 2. A review to specifically ensure our patients have had annual screening for screening for depression, screening for tobacco use, and screening for unhealthy alcohol use. For concerning screenings had a discussion with the patient, provided patient education, and recommended follow-up with primary care provider when appropriate. If patient noted with a risk of falling, they received education on strength, gait, and balance training to prevent future risk of falling. Portions of this note may have been carried over from the previous visit and updated as appropriate. Please note this office utilizes paper charting in addition to the electronic medical record. A list of current medications, vitals, and PMH is available there as the clinical staff outside of myself do not have access to [employer] charting during the clinic day operations. As part of providing quality comprehensive care the current medications, vitals, and PMH were reviewed in the paper chart. Assessment and Plan Assessment and Plan (1) Lumbar spondylosis: Assessment and Plan: The patient has had over 3 months of moderate to severe axial facet mediated low back pain with functional impairment and inadequate response to conservative care including NSAIDS (unless there are contraindication such as concurrent blood thinners), multiple oral or topical pain medications, and home exercise program/physical therapy.? Patient has completed >6 weeks of guided home exercise program and/or formal physical therapy program without relief of their symptoms.? We discussed the risks and benefits of the procedure with the patient, and we are NOT planning on using sedation as outlined in the guidelines from Medicare unless there is a documented reason that sedation would be strongly recommended.?? ?The procedure will be completed with fluoroscopic guidance.? (2) Sacroiliitis: Assessment and Plan: WIN 22% with moderate to severe pain impacting ADLs, sitting, sleeping, social life, and travel 09/13/24 bilateral SIJ injection with 50% improvement per pt, significant improvement on exam (3) Lumbar stenosis with neurogenic claudication: (4) Cervical stenosis of spinal canal: (5) Cervical spondylosis: (6) Osteoarthritis of shoulders, bilateral: (7) Generalized OA: (8) Polymyalgia rheumatica: Plan bilateral L4-5 L5-S1 MBB under fluoroscopy in consideration of RFA for axial facet mediated low back pain dc celebrex 200mg BID due to ineffectiveness, start mobic 7.5mg BID risks vs benefits reviewed dc all otc nsaids as discussed continue HEP as tolerated f/u after MBB
== END 2024-09-29 10:33 | disposition home or self-care (01) ==
LOC: PM 10:33
PROVIDERS: PCP Family Medicine; Visit Provider Nurse Practitioner
DX: M47.816 Spondylosis without myelopathy or radiculopathy, lumbar region (principal); M48.062 Spinal stenosis, lumbar region with neurogenic claudication; M48.02 Spinal stenosis, cervical region; M47.812 Spondylosis without myelopathy or radiculopathy, cervical region; M19.012 Primary osteoarthritis, left shoulder; M19.011 Primary osteoarthritis, right shoulder; M35.3 Polymyalgia rheumatica
CPT/HCPCS: G0463

== ENCOUNTER 2024-10-13 10:39 | Outpatient (OUT) | payer MEDICARE, OTHER, SELFPAY ==
--- NOTE | 2024-10-13 11:09 | P.CN_ITS ---
Consult Note: HPI Data of Consult Patient: known to practice within the last 3 years Requesting Physician: Norma Jimenez NP Primary Care Provider: Suhas Arizmendi DO Consult Narrative Reason for consult: back pain Narrative: 89yof who presents for assessment. chronic neck and low back pain. longstanding hx of pain secondary to degenerative changes, prior cervical and lumbar MRI consistent with multilevel stenosis and spondylosis as well as DDD. Pain today 8-9/10 in whole body, aching as well as low back and BLE pain/weakness. Pain increasing with all activity, pain improved with sitting and a hot shower. pt has a hx of PMR as well. denies falls or injury since last visit. continues to engage in HEP >6 weeks without improvement. recent bilateral SIJ injection providing 50% improvement in SIJ pain per pt. since last visit pt was started on a benzodiazepine through her PCP which resulted in a conversion to NNCP. pt reports moderate distress and anxiety today. cc:: CC: Norma Jimenez NP Review of Systems ROS Cardiovascular Denies: chest pain Musculoskeletal Reports: back pain, neck pain and joint pain Psychiatric Reports: anxiety and difficulty concentrating; Denies: suicidal ideation [facility] Medical History Polymyalgia rheumatica ?M35.3 - Polymyalgia rheumatica (ICD-10) Hyperthyroidism ?E05.90 - Thyrotoxicosis, unspecified without thyrotoxic crisis or storm (ICD-10) Heart murmur ?R01.1 - Cardiac murmur, unspecified (ICD-10) HTN (hypertension) ?I10 - Essential (primary) hypertension (ICD-10) Surgical History 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 - Postprocedural hypothyroidism (ICD-10) Hx of cholecystectomy ?Z90.49 - Acquired absence of other specified parts of digestive tract (ICD- 10) History of ovarian cystectomy ?Z98.890 - Other specified postprocedural states (ICD-10) ?Z87.42 - Personal history of other diseases of the female genital tract (ICD-10) History of appendectomy ?Z90.49 - Acquired absence of other specified parts of digestive tract (ICD- 10) Social History Little interest or pleasure in doing things: not at all Feeling down, depressed, or hopeless: not at all Meds Home Medications and Allergies Home Medications ?Medication ?Instructions ?Recorded ?Confirmed ?Type amlodipine 10 mg tablet (Norvasc) 10 mg PO DAILY 08/2409/13/24 History aspirin 81 mg capsule 81 mg PO DAILY 08/25/2312/31 History carvedilol 6.25 mg tablet 6.25 mg PO Q12H 08/25/2312/31 History levothyroxine 100 mcg tablet 100 mcg PO DAILY 08/25/23 09/13/24 History losartan 100 1 tab PO DAILY 08/25/2312/31 History mg-hydrochlorothiazide 12.5 mg tablet multivitamin (Daily Multi-Vitamin 1 tab PO DAILY 08/2409/13/24 History tablet) prednisone 2.5 mg tablet mg 11/17/23 History meclizine 25 mg chewable tablet 25 mg PO QID PRN dizzi ness #12 tabs 08/30/24 09/13/24 Rx (Antivert) ondansetron 4 mg disintegrating 4 mg PO Q6H PRN nausea and 08/30/24 09/13/24 Rx tablet vomiting #12 tabs celecoxib 200 mg capsule (Celebrex) 200 mg PO BID 08/0309/13/24 History Allergies Allergy/AdvReac Type Severity Reaction Status Date / Time amoxicillin Allergy Mild Rash Verified 09/13/24 10:43 divalproex sodium (From Allergy Unknown Unknown Verified 09/13/24 10:43 Depakote) hydrocodone Allergy Unknown Rash Verified 09/13/24 10:43 phenytoin (From Dilantin) Allergy Unknown Unknown Verified 09/13/24 10:43 alendronate sodium (From AdvReac eye pain Verified 09/13/24 10:43 Fosamax) Exam Constitutional Documenting provider has reviewed patient's vital signs: yes Common normals: oriented x3, alert and well nourished General appearance: cooperative and anxious [facility] Common normals: normocephalic, hearing grossly normal bilaterally and moist oral mucous membranes Head and scalp: normocephalic Eye Common normals: PERRL Pupil: PERRL Neck & C-Spine Common normals: full ROM General: normal visual inspection Chest Common normals: inspection of chest normal Respiratory Common normals: normal respiratory effort, no retractions and no use of accessory muscles Back & Pelvis Lumbar spine/lower back: pain with ROM, lumbar spinal tenderness, paraspinal muscle tenderness, straight leg raise positive right and straight leg raise positive left Sacroiliac joints: SI joints normal Other: bilateral SIJ negative marisela(patricks), gaenslens, thigh thrust, compression test positive facet loading facet tenderness noted L3-5 strength 4/5 with decreased sensation to BLE following L4,5,S1 pattern Extremity Common normals: normal to inspection and full ROM Neuro Common normals: oriented x3 Sensorium/orientation: alert Gait (neuro): antalgic Motor exam: strength abnormal Psych Common normals: mental status grossly normal, thought process normal, cooperative, affect normal, speech normal and activity/motor behavior normal Speech: normal speech Thought process: normal thought process Results Additional Findings Additional findings: If on a controlled substance or opioids, I have checked an [place]AR[place] report on this patient and there are no aberrancies noted in the prescribing history.??If on a controlled substance or opioid a drug screen was completed and reviewed within the last year, and if there has not been a drug screen completed we ordered one today to monitor higher risk, state monitored pain medication use. As part of providing excellent, safe, comprehensive care, the following was completed at our patient's visit: 1. A medication reconciliation and review to ensure accurate knowledge of current/active medications, including asking our patients to inform us about any [id number] medications or herbal remedies/nutritional supplements/alternative remedies. 2. A review to specifically ensure our patients have had annual screening for screening for depression, screening for tobacco use, and screening for unhealthy alcohol use. For concerning screenings had a discussion with the patient, provided patient education, and recommended follow-up with primary care provider when appropriate. If patient noted with a risk of falling, they received education on strength, gait, and balance training to prevent future risk of falling. Portions of this note may have been carried over from the previous visit and updated as appropriate. Please note this office utilizes paper charting in addition to the electronic medical record. A list of current medications, vitals, and PMH is available there as the clinical staff outside of myself do not have access to [employer] charting during the clinic day operations. As part of providing quality comprehensive care the current medications, vitals, and PMH were reviewed in the paper chart. Assessment and Plan Assessment and Plan (1) Lumbar stenosis with neurogenic claudication: Assessment and Plan: The patient has had over 3 months of moderate to severe low back and BLE pain with functional impairment and inadequate response to conservative care including NSAIDS (unless there are contraindication such as concurrent blood thinners), multiple oral or topical pain medications, and home exercise program/physical therapy.? Patient has completed >6 weeks of guided home exercise program and/or formal physical therapy program without relief of their symptoms.? I have reviewed the imaging of the lumbar spine and no red flags were identified.? The Oswestry Disability Index was completed, and the patient scored a 46%.? We discussed the risks and benefits of the procedure with the patient, and we are NOT planning on using sedation as outlined in the guidelines from Medicare unless there is a documented reason that sedation would be strongly recommended.?? ?The procedure will be completed with fluoroscopic guidance.? (2) Lumbar spondylosis: Assessment and Plan: bilateral L4-5 L5-S1 MBBs x2, first improved pain significantly however second did not. pt had overlapping symptoms and problems at that time. insurance will not approve a third diagnostic injection in consideration of RFA. pt not interested in scs as previously discussed, however with her severe pain she is reconsidering. (3) Sacroiliitis: (4) Cervical stenosis of spinal canal: (5) Cervical spondylosis: (6) Osteoarthritis of shoulders, bilateral: (7) Generalized OA: (8) Polymyalgia rheumatica: (9) Anxiety: Assessment and Plan: uncontrolled anxiety, pt was unable to pause from sentences to take breaths for deep breathing exercises as directed by myself today. pt appears to be manic due to severe pain and anxiety. Plan bilateral L4-5 L5-S1 MBB under fluoroscopy in consideration of RFA denied by insurance, will trial bilateral L4-5 TFESI under fluoroscopy for lumbar stenosis with NC continue mobic 7.5mg BID risks vs benefits reviewed, continue otc tylenol continue HEP as tolerated continue NNCP pt advised to f/u with PCP regarding uncontrolled anxiety f/u 2 weeks after JARED, pt reconsidering scs
== END 2024-10-13 10:40 | disposition home or self-care (01) ==
LOC: PM 10:40
PROVIDERS: PCP Family Medicine; Visit Provider Nurse Practitioner
DX: M48.062 Spinal stenosis, lumbar region with neurogenic claudication (principal); M47.816 Spondylosis without myelopathy or radiculopathy, lumbar region; M46.1 Sacroiliitis, not elsewhere classified; M48.02 Spinal stenosis, cervical region; M47.812 Spondylosis without myelopathy or radiculopathy, cervical region; M19.012 Primary osteoarthritis, left shoulder; M19.011 Primary osteoarthritis, right shoulder; M35.3 Polymyalgia rheumatica; F41.9 Anxiety disorder, unspecified
CPT/HCPCS: G0463

== ENCOUNTER 2024-10-25 09:48 | Day surgery (SDC) | payer MEDICARE, OTHER, SELFPAY ==
--- OUTSIDE RECORDS SUMMARY | 2024-10-25 09:56 | XMS_ITS | CCD ---
Author Organization [facility] CliniSyid Care Team Providers Care Car Runner Name Role Phone Suhas Garrett Unavailable Suhas Garrett Unavailable Unavailable Unavailable MAYO CARBAJAL Consulting Unavailable UGO, DR BAIRD Primary Care Unavailable WALT VELIZ Attending Unavailable WALT VELIZ Admitting Unavailable Ugo, Dr. Suhas Liang Primary Care Unavaila ria Wolf, Dr. Shy Agosto Referring Radha vailable Wolf, Dr. Shy Agosto Attending Radha vailable Wolf, Dr. Shy Agosto Attending Radha vailable Kuns, Dr. Suhas Liang Primary Care Unavaila ble Luciano, Dr. Shy Agosto Referring Radha vailable Ugo, Dr. Suhas Liang Primary Care Unavaila SHY Clancy Attending Unavail able Suhas Garrett DO Primary Care Provider SHY WOLF Referring Unavailable SUHAS GARRETT P Primary Care Unavailable SHY WOLF Attending Unavailable SUHAS GARRETT P Primary Care Unavailable SHY WOLF Attending Unavailable SHY WOLF Referring Unavailable NIKIAS SUHAS P Primary Care Unavailable Suhas Garrett Primary Care Unavailable Suhas Garrett Admitting Unavailable Suhas Garrett Attending Unavailable Suhas Garrett Attending Unavailable Suhas Garrett Primary Care Unavailable Kuns Suhas Admitting Unavailable KunSuhas arellano Attending Unavailable Ugo Suhas Primary Care Unavailable Suhas Garrett Admitting Unavailable Suhas Garrett Attending Unavailable Ugo Suhas Primary Care Unavailable Suhas Garrett Admitting Unavailable Trista FRIEDMAN, Gloria Gautam Attending Unavailable Trista FRIEDMAN, Gloria Gautam Attending Unavailable Giedraitis , Gloria Gautam Attending Unavailable Giedraitis , Gloria Gautam Attending Unavailable Giedraitis , Gloria Gautam Attending Unavailable Giedraitis , Gloria Gautam Attending Unavailable Allergies Allergy Classification Reported Allergen(s) Allergy Type Date of Onset Reaction(s) Facility (20 sources) Alendronate; Translations: [Fosamax] Drug Allergy 3 Unknown, Other [facility] Repository (20 sources) Amoxicillin; Translations: [amoxicillin] Drug Allergy 9 hives [facility] Other (20 sources) Phenytoin; Translations: [Dilantin CAPS] Drug Allergy 3 Rash [facility] Other (20 sources) Valproate; Translations: [Depakote ER TB24] Drug Allergy [facility] Other (1 source) Alendronate Drug Allergy [facility] Repository (1 source) Amoxicillin Drug Allergy [facility] Repository (1 source) Phenytoin Drug Allergy [facility] Repository (1 source) Valproate Drug Allergy [facility] Repository (20 sources) Acetaminophen / HYDROcodone Drug Allergy elevated liver enzymes [facility] Other (1 source) Alendronate Drug Allergy 3 [facility] (3 sources) HYDROcodone; Translations: [HYDROCODONE] Drug Allergy 4 GI Upset [facility] Work Phone: (3 sources) Valproate; Translations: [VALPROIC ACID] Drug Allergy 3 [facility] Work Phone: (1 source) Acetaminophen Drug Allergy 4 [facility] Repository (1 source) Alendronate Drug Allergy 4 [facility] Repository (1 source) Amoxicillin Drug Allergy 4 [facility] Repository (1 source) HYDROcodone Drug Allergy 4 [facility] Repository (1 source) Phenytoin Drug Allergy 4 [facility] Repository (1 source) Valproate Drug Allergy 4 [facility] Repository Medications Current Medications Medication Drug Class(es) [...] tablet by mouth once daily. 0 Active [place] 3 1000 MG (20 sources) take 1 capsule by mouth once daily [place] 3 1000 MG 1 capsule with a [...] Start: 01-11-2022 take 1 tablet by barb at mealtime, then take 1 tablet by mouth twice daily, then take 1 tablet by mouth once daily predniSONE 20 MG 1 tablet with food or milk Orally 1 tab twice a day x 5 days , 1 tab once a day X 5 days Jan, Active Start: 11-02-2021 take 1 tablet by barb every other day predniSONE 5 MG 1 [...] take 1 capsule by mouth once daily [place]-3 Fish Oil 1000 MG Oral Capsule TAKE [...] 0 Refills: 0 Ordered: 13-Dec-2021 DO Active [place] 3 500 CAPS (4 sources) [place] 3 500 CAPS TAKE 1 CAPSULE Daily [...] Coronary arteriosclerosis; 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 [place] coronary artery without angina pectoris] Onset: 09-03-2023 [...] fracture] Chronic Other aftercare (1 source) Other fpc (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; Translations: [OTH 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 [facility] Comment on above: Performed By: #### V [id number], CMP, TSH3, LIPID, CBC, T4F, ESR #### [address] Eosinophils (Bld) [#/Vol] 0.1 10*3/uL Normal 0.0-0.45 [facility] Comment on above: Performed By: #### V [id number], CMP, TSH3, LIPID, CBC, T4F, ESR #### [address] Eosinophils/100 WBC (Bld) 2.2 % Normal . [facility] Comment on above: Performed By: #### V [id number], CMP, TSH3, LIPID, CBC, T4F, ESR #### [address] Erythrocyte distribution width (RBC) [Ratio] 13.5 % Normal 11.9-15.3 [facility] Comment on above: Performed By: #### V [id number], CMP, TSH3, LIPID, CBC, T4F, ESR #### [address] Hematocrit (Bld) [Volume fraction] 37.9 % Normal 34.0-46.4 [facility] Comment on above: Performed By: #### V [id number], CMP, TSH3, LIPID, CBC, T4F, ESR #### [address] Hemoglobin (Bld) [Mass/Vol] 12.9 g/dL Normal 11.8-15.4 [facility] Comment on above: Performed By: #### V [id number], CMP, TSH3, LIPID, CBC, T4F, ESR #### [address] Lymphocytes (Bld) [#/Vol] 2.2 10*3/uL Normal 1.00-4.8 [facility] Comment on above: Performed By: #### V [id number], CMP, TSH3, LIPID, CBC, T4F, ESR #### [address] Lymphocytes/100 WBC (Bld) 34.3 % Normal . [facility] Comment on above: Performed By: #### V [id number], CMP, TSH3, LIPID, CBC, T4F, ESR #### [address] MCH (RBC) [Entitic mass] 33.5 pg Normal 24.7-34.3 [facility] Comment on above: Performed By: #### V [id number], CMP, TSH3, LIPID, CBC, T4F, ESR #### [address] MCV (RBC) [Entitic vol] 98.4 fL Normal 80-100 [facility] Comment on above: Performed By: #### V [id number], CMP, TSH3, LIPID, CBC, T4F, ESR #### [address] Mean Corpuscular HGB Conc 34.1 g/dL Normal 32.0-35.0 [facility] Comment on above: Performed By: #### V [id number], CMP, TSH3, LIPID, CBC, T4F, ESR #### [address] Monocytes (Bld) [#/Vol] 0.6 10*3/uL Normal 0.0-0.8 [facility] Comment on above: Performed By: #### V [id number], CMP, TSH3, LIPID, CBC, T4F, ESR #### [address] Monocytes/100 WBC (Bld) 9.8 % Normal . [facility] Comment on above: Performed By: #### V [id number], CMP, TSH3, LIPID, CBC, T4F, ESR #### [address] Neutrophils (Bld) [#/Vol] 3.4 10*3/uL Normal 1.8-7.7 [facility] Comment on above: Performed By: #### V [id number], CMP, TSH3, LIPID, CBC, T4F, ESR #### [address] Neutrophils/100 WBC (Bld) 52.6 % Normal . [facility] Comment on above: Performed By: #### V [id number], CMP, TSH3, LIPID, CBC, T4F, ESR #### [address] NRBC% 0.3 /100{WBC} Normal 0-0.5 [facility] Comment on above: Performed By: #### V [id number], CMP, TSH3, LIPID, CBC, T4F, ESR #### [address] Platelet mean volume (Bld) [Entitic vol] 9.3 fL Normal 6.3-10.[address] [facility] Comment on above: Performed By: #### V [id number], CMP, TSH3, LIPID, CBC, T4F, ESR #### [place] [address] [place] Platelets (Bld) [#/Vol] 208 10*3/uL Normal 150-450 [facility] Comment on above: Performed By: #### V [id number], CMP, TSH3, LIPID, CBC, T4F, ESR #### [place] [address] [place] RBC (Bld) [#/Vol] 3.85 10*6/uL Normal 3.60-5.[address] [facility] Comment on above: Performed By: #### V [id number], CMP, TSH3, LIPID, CBC, T4F, ESR #### [facility] [address] WBC (Bld) [#/Vol] 6.6 10*3/uL Normal 3.8-11.6 [facility] Comment on above: Performed By: #### V [id number], CMP, TSH3, LIPID, CBC, T4F, ESR #### [address] Comprehensive Metabolic Pane nory 07-28-2024 Albumin [Mass/Vol] 3.7 g/dL Normal 3.5-5.7 [facility] Comment on above: Performed By: #### V [id number], CMP, TSH3, LIPID, CBC, T4F, ESR #### [address] Albumin/Globulin [Mass ratio] 1.9 {ratio} Normal [facility] Comment on above: Performed By: #### V [id number], CMP, TSH3, LIPID, CBC, T4F, ESR #### [address] ALP [Catalytic activity/Vol] 62 U/L Normal 34-104 [facility] Comment on above: Performed By: #### V [id number], CMP, TSH3, LIPID, CBC, T4F, ESR #### [address] ALT [Catalytic activity/Vol] 21 U/L Normal 7-52 [facility] Comment on above: Performed By: #### V [id number], CMP, TSH3, LIPID, CBC, T4F, ESR #### [address] Anion gap [Moles/Vol] 8.2 mmol/L Normal 6.0-15.0 [facility] Comment on above: Performed By: #### V [id number], CMP, TSH3, LIPID, CBC, T4F, ESR #### [address] AST [Catalytic activity/Vol] 19 U/L Normal 13-39 [facility] Comment on above: Performed By: #### V [id number], CMP, TSH3, LIPID, CBC, T4F, ESR #### [address] Bilirubin [Mass/Vol] 0.7 mg/dL Normal 0.3-1.0 [facility] Comment on above: Performed By: #### V [id number], CMP, TSH3, LIPID, CBC, T4F, ESR #### [address] Calcium [Mass/Vol] 9.7 mg/dL Normal 8.6-10.3 [facility] Comment on above: Performed By: #### V [id number], CMP, TSH3, LIPID, CBC, T4F, ESR #### [address] Chloride [Moles/Vol] 107 mmol/L Normal 98-107 [facility] Comment on above: Performed By: #### V [id number], CMP, TSH3, LIPID, CBC, T4F, ESR #### [address] CO2 [Moles/Vol] 31.5 mmol/L High 21.0-31.0 [facility] Comment on above: Performed By: #### V [id number], CMP, TSH3, LIPID, CBC, T4F, ESR #### [address] Creatinine [Mass/Vol] 0.67 mg/dL Normal 0.60-1.20 [facility] Comment on above: Performed By: #### V [id number], CMP, TSH3, LIPID, CBC, T4F, ESR #### [place] [address] [place] GFR/1.73 sq M.predicted MDRD (S/P/Bld) [Vol rate/Area] mL/min/{1.73_m2} Normal [facility] Comment on above: Performed By: #### V [id number], CMP, TSH3, LIPID, CBC, T4F, ESR #### [facility] [address] Globulin (S) [Mass/Vol] 1.9 g/dL Normal [facility] Comment on above: Performed By: #### V [id number], CMP, TSH3, LIPID, CBC, T4F, ESR #### [facility] [address] Glucose [Mass/Vol] 89 mg/dL Normal 70-100 [facility] Comment on above: Result Comment: [facility] Glucose Reference Range is dependent on time and content of last meal. Glucose of more than 200 mg/dL in a nonstressed, ambulatory subject supports the diagnosis of Diabetes Mellitus. ADA recommended reference range Performed By: #### V [id number], CMP, TSH3, LIPID, CBC, T4F, ESR #### [facility] [address] Potassium [Moles/Vol] 3.7 mmol/L Normal 3.5-5.1 [facility] Comment on above: Performed By: #### V [id number], CMP, TSH3, LIPID, CBC, T4F, ESR #### [facility] [address] Protein [Mass/Vol] 5.6 g/dL Low 6.4-8.9 [facility] Comment on above: Performed By: #### V [id number], CMP, TSH3, LIPID, CBC, T4F, ESR #### [facility] [address] [place] [address] [place] Sodium [Moles/Vol] 143 mmol/L Normal 136-145 [facility] Comment on above: Performed By: #### V [id number], CMP, TSH3, LIPID, CBC, T4F, ESR #### [facility] [address] [place] [address] [place] Urea nitrogen [Mass/Vol] 19 mg/dL Normal 7-25 [facility] Comment on above: Performed By: #### V [id number], CMP, TSH3, LIPID, CBC, T4F, ESR #### [address] Erythrocyte Sedimentation Ra amy 07-28-2024 ESR (Bld) [Velocity] 9 mm/h Normal 0-29 [facility] Comment on above: Result Comment: PERF ORMED BY: [place] [address] PATHOLOGIST STRETCHER DRIER OPERATOR JASIEL HURTADO M.D. Performed By: #### V [id number], CMP, TSH3, LIPID, CBC, T4F, ESR #### [address] Free T4 (Free Thyroxine)on 0 07-28-2024 Free T4 [Mass/Vol] 0.74 ng/dL Normal 0.61-1.12 [facility] Comment on above: Performed By: #### L IPID, TSH3, CMP, CBC #### [address] Lipid Panelon 07-28-2024 Cholesterol [Mass/Vol] 228 mg/dL High 140-200 [facility] Comment on above: Result Comment: Chol less than 200 mg/dl low risk Chol 201-239 mg/dl borderline risk Chol 240 mg/dl and greater high risk Performed By: #### V [id number], CMP, TSH3, LIPID, CBC, T4F, ESR #### [address] Cholesterol in HDL [Mass/Vol] 96 mg/dL High 23-92 [facility] Comment on above: Result Comment: HDL CHOL ATP-III CLASSIFICATION Cardiovascular Risk HDL > or equal to 60 mg/dL LOW HDL < 40 mg/dL HIGH Performed By: #### V [id number], CMP, TSH3, LIPID, CBC, T4F, ESR #### [address] Cholesterol.total/Ch olesterol in HDL [Mass ratio] 2.4 {ratio} Normal <5.0 [facility] Comment on above: Performed By: #### V [id number], CMP, TSH3, LIPID, CBC, T4F, ESR #### [facility] [address] LDL Cholesterol,Calculat ed 121 mg/dL High 0-100 [facility] Comment on above: Result Comment: LDL ATP III CLASSIFICATION LDL less than 100 mg/dL Optimal LDL 100-129 mg/dL Near or above optimal LDL 130-159 mg/dL Borderline high LDL 160-189 mg/dL High LDL greater than 189 mg/dL Very high Performed By: #### V [id number], CMP, TSH3, LIPID, CBC, T4F, ESR #### [facility] [address] Triglyceride w/Reflex 57 mg/dL Normal 0-149 [facility] Comment on above: Result Comment: TRIG ATP III CLASSIFICATION TRIG less than 150 mg/dL Normal TRIG 150-199 mg/dL Borderline high TRIG 200-500 mg/dL High TRIG greater than 500 mg/dL Very high Standard traceable to the Center for Disease Conrtrol and Prevention (CDC) test method. Performed By: #### V [id number], CMP, TSH3, LIPID, CBC, T4F, ESR #### [facility] [address] VLDL CHOLESTEROL 11 mg/dL Normal [facility] Comment on above: Performed By: #### V [id number], CMP, TSH3, LIPID, CBC, T4F, ESR #### [facility] [address] Thyroid Stimulating Hormoneo n 07-28-2024 TSH Qn 6.38 m[IU]/L High 0.45-5.[address] [facility] Comment on above: Performed By: #### L IPID, TSH3, CMP, CBC #### [facility] [address] Vitamin D 25 Hydroxy Totalon 07-28-2024 Vitamin D 25 Hydroxy Total 28.4 ng/mL Low 30-100 [facility] Comment on above: Result Comment: ANJU MIN D STATUS 25(OH)VITAMIN D RANGE (ng/mL) Deficient <20 Insufficient 20 to <30 Sufficient 30 to 100 Reference: Yolanda MF,Nathan NC, Keshawn FRANCO, et al. Evaluation,treatment, and prevention of vitamin D deficiency; an Endocrine Society clinical practice guideline. JCEM. 2010; 96(7):1911-30. PERFORMED BY: [place] [address] PATHOLOGIST STRETCHER DRIER OPERATOR JASIEL HURTADO M.D. Performed By: #### L IPID, TSH3, CMP, CBC #### [address] XR scapula LT*on 05-25-2024 XR scapula LT* [facility] [place] [address] [place] [address] XRay Report Signed Patient: Lavonne Villatoro MR#: [id number] : 1935 Acct:[id number] Age/Sex: 88 / F ADM Date: 05/25/24 Loc: XD Room: Type: [facility] Attending Dr: Suhas Garrett DO Copies to: Suhas Garrett DO Ordering Provider: Suhas Garrett DO Date of Service: 05/25/24 XR/XR shoulder LT min 2V*: M25.519 - Pain in unspecified shoulder ([id number]) XR/XR scapula LT*: M25.519 - Pain in [...] Casandra Gómez M.D.05/25/2024 4:45 PM Dictation Location: [place] [address] Transcribed By: [facility] 05/25/241644 Dictated By: Casandra Gómez MD 05/25/241641 Signed By: 05/25/241644 Normal [facility] TRANSTHORACIC ECHO (TTE) [facility] 02-11-2024 TRANSTHORACIC ECHO (TTE) COMPLETE [address], [address], [place] [address] TRANSTHORACIC ECHOCARDIOGRAM REPORT Patient Name: LAVONNE VILLATORO Reading Physician: [id number] Shy Wolf MD, [facility] Study Date: 02/11/2024 Ordering Provider: [id number] SHY WOLF MRN/PID: [id number] Fellow: Nurse: Date of /Age: 3 1935 / 88 years Supervisor [employer]: LILIA Gender: F Additional Staff: Height: 157.48 cm Admit Date: Weight: 69.40 kg Admission Status: BSA / BMI: 1.71 m2 / 27.98 kg/m2 Department Location: [facility] Blood Pressure: 116 /76 mmHg Study Type: TRANSTHORACIC ECHO (TTE) COMPLETE Diagnosis/ICD: 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 [facility] US carotid doppler BIon 05-0 US carotid doppler BI [facility] [place] [address] [place] [id number] Ultrasound Report Signed Patient: Lavonne Villatoro MR#: [id number] : 1935 Acct:[id number] Age/Sex: 88 / F ADM Date: 10/14/23 Loc: Room: Type: [facility] Attending Dr: Suhas Garrett DO Ordering Provider: [...] Hola Wynn M.D.10/15/2023 11:47 AM Dictation Location: [place] [address] Tech: Jackie Aguillon Transcribed By: KIRILL 10/15/23 1147 Dictated By: Hola Wynn MD 10/15/23 1145 Signed By: 10/15/23 1147 Normal [facility] Complete Blood Count Auto Di ffon 09-03-2023 Basophils (Bld) [#/Vol] 0.0 10*3/uL Normal 0.0-0.2 [facility] Comment on above: Result Comment: PERF ORMED BY: [place] [address] PATHOLOGIST STRETCHER DRIER OPERATOR JODY SOLANO M.D. Performed By: #### L IPID, TSH3, CMP, CBC #### [address] Basophils/100 WBC (Bld) 0.7 % Normal . [facility] Comment on above: Performed By: #### L IPID, TSH3, CMP, CBC #### [address] Eosinophils (Bld) [#/Vol] 0.1 10*3/uL Normal 0.0-0.45 [facility] Comment on above: Performed By: #### L IPID, TSH3, CMP, CBC #### [address] Eosinophils/100 WBC (Bld) 1.6 % Normal . [facility] Comment on above: Performed By: #### L IPID, TSH3, CMP, CBC #### [address] Erythrocyte distribution width (RBC) [Ratio] 14.8 % Normal 11.9-15.3 [facility] Comment on above: Performed By: #### L IPID, TSH3, CMP, CBC #### [address] Hematocrit (Bld) [Volume fraction] 39.9 % Normal 34.0-46.4 [facility] Comment on above: Performed By: #### L IPID, TSH3, CMP, CBC #### [address] Hemoglobin (Bld) [Mass/Vol] 13.2 g/dL Normal 11.8-15.4 [facility] Comment on above: Performed By: #### L IPID, TSH3, CMP, CBC #### [address] Lymphocytes (Bld) [#/Vol] 2.6 10*3/uL Normal 1.00-4.8 [facility] Comment on above: Performed By: #### L IPID, TSH3, CMP, CBC #### [address] Lymphocytes/100 WBC (Bld) 43.5 % Normal . [facility] Comment on above: Performed By: #### L IPID, TSH3, CMP, CBC #### [address] MCH (RBC) [Entitic mass] 33.2 pg Normal 24.7-34.3 [facility] Comment on above: Performed By: #### L IPID, TSH3, CMP, CBC #### [address] MCV (RBC) [Entitic vol] 100.5 fL High 80-100 [facility] Comment on above: Performed By: #### L IPID, TSH3, CMP, CBC #### [address] Mean Corpuscular HGB Conc 33.0 g/dL Normal 32.0-35.0 [facility] Comment on above: Performed By: #### L IPID, TSH3, CMP, CBC #### [address] Monocytes (Bld) [#/Vol] 0.6 10*3/uL Normal 0.0-0.8 [facility] Comment on above: Performed By: #### L IPID, TSH3, CMP, CBC #### [address] Monocytes/100 WBC (Bld) 9.7 % Normal . [facility] Comment on above: Performed By: #### L IPID, TSH3, CMP, CBC #### [address] Neutrophils (Bld) [#/Vol] 2.7 10*3/uL Normal 1.8-7.7 [facility] Comment on above: Performed By: #### L IPID, TSH3, CMP, CBC #### [address] Neutrophils/100 WBC (Bld) 44.5 % Normal . [facility] Comment on above: Performed By: #### L IPID, TSH3, CMP, CBC #### [address] NRBC% 0.2 /100{WBC} Normal 0-0.5 [facility] Comment on above: Performed By: #### L IPID, TSH3, CMP, CBC #### [address] Platelet mean volume (Bld) [Entitic vol] 9.2 fL Normal 6.3-10.[address] [facility] Comment on above: Performed By: #### L IPID, TSH3, CMP, CBC #### [place] [address] [place] Platelets (Bld) [#/Vol] 229 10*3/uL Normal 150-450 [facility] Comment on above: Performed By: #### L IPID, TSH3, CMP, CBC #### [place] [address] [place] RBC (Bld) [#/Vol] 3.98 10*6/uL Normal 3.60-5.[address] [facility] Comment on above: Performed By: #### L IPID, TSH3, CMP, CBC #### [place] [address] WBC (Bld) [#/Vol] 6.0 10*3/uL Normal 3.8-11.6 [facility] Comment on above: Performed By: #### L IPID, TSH3, CMP, CBC #### [address] Comprehensive Metabolic Pane nory 09-03-2023 Albumin [Mass/Vol] 3.8 g/dL Normal 3.5-5.7 [facility] Comment on above: Performed By: #### L IPID, TSH3, CMP, CBC #### [address] Albumin/Globulin [Mass ratio] 1.7 {ratio} Normal [facility] Comment on above: Performed By: #### L IPID, TSH3, CMP, CBC #### [address] ALP [Catalytic activity/Vol] 72 U/L Normal 34-104 [facility] Comment on above: Performed By: #### L IPID, TSH3, CMP, CBC #### [address] ALT [Catalytic activity/Vol] 43 U/L Normal 7-52 [facility] Comment on above: Performed By: #### L IPID, TSH3, CMP, CBC #### [address] Anion gap [Moles/Vol] 8.9 mmol/L Normal 6.0-15.0 [facility] Comment on above: Performed By: #### L IPID, TSH3, CMP, CBC #### [address] AST [Catalytic activity/Vol] 23 U/L Normal 13-39 [facility] [facility] Comment on above: Performed By: #### L IPID, TSH3, CMP, CBC #### [address] Bilirubin [Mass/Vol] 1.2 mg/dL High 0.3-1.0 [facility] Comment on above: Performed By: #### L IPID, TSH3, CMP, CBC #### [address] Calcium [Mass/Vol] 9.5 mg/dL Normal 8.6-10.3 The [facility] Comment on above: Performed By: #### L IPID, TSH3, CMP, CBC #### [place] [address] [place] Chloride [Moles/Vol] 107 mmol/L Normal 98-107 [facility] Comment on above: Performed By: #### L IPID, TSH3, CMP, CBC #### [address] CO2 [Moles/Vol] 30.0 mmol/L Normal 21.0-31.0 The [facility] Comment on above: Performed By: #### L IPID, TSH3, CMP, CBC #### [address] Creatinine [Mass/Vol] 0.76 mg/dL Normal 0.60-1.20 [facility] Comment on above: Performed By: #### L IPID, TSH3, CMP, CBC #### [address] GFR/1.73 sq M.predicted MDRD (S/P/Bld) [Vol rate/Area] mL/min/{1.73_m2} Normal [facility] Comment on above: Performed By: #### L IPID, TSH3, CMP, CBC #### [address] Globulin (S) [Mass/Vol] 2.2 g/dL Normal [facility] Comment on above: Performed By: #### L IPID, TSH3, CMP, CBC #### [address] Glucose [Mass/Vol] 79 mg/dL Normal 70-100 The [facility] Comment on above: Result Comment: [place] Glucose Reference Range is dependent on time and content of last meal. Glucose of more than 200 mg/dL in a nonstressed, ambulatory subject supports the diagnosis of Diabetes Mellitus. ADA recommended reference range Performed By: #### L IPID, TSH3, CMP, CBC #### [address] Potassium [Moles/Vol] 3.9 mmol/L Normal 3.5-5.1 [facility] Comment on above: Performed By: #### L IPID, TSH3, CMP, CBC #### [address] Protein [Mass/Vol] 6.0 g/dL Low 6.4-8.9 The [facility] Comment on above: Performed By: #### L IPID, TSH3, CMP, CBC #### [address] Sodium [Moles/Vol] 142 mmol/L Normal 136-145 The [facility] Comment on above: Performed By: #### L IPID, TSH3, CMP, CBC #### [address] Urea nitrogen [Mass/Vol] 22 mg/dL Normal 7-25 [facility] Comment on above: Performed By: #### L IPID, TSH3, CMP, CBC #### [address] Lipid Panelon 09-03-2023 Cholesterol [Mass/Vol] 243 mg/dL High 140-200 [facility] Comment on above: Result Comment: Chol less than 200 mg/dl low risk Chol 201-239 mg/dl borderline risk Chol 240 mg/dl and greater high risk Performed By: #### L IPID, TSH3, CMP, CBC #### [address] Cholesterol in HDL [Mass/Vol] 98 mg/dL High 23-92 [facility] Comment on above: Result Comment: HDL CHOL ATP-III CLASSIFICATION Cardiovascular Risk HDL > or equal to 60 mg/dL LOW HDL < 40 mg/dL HIGH Performed By: #### L IPID, TSH3, CMP, CBC #### [address] Cholesterol.total/Ch olesterol in HDL [Mass ratio] 2.5 {ratio} Normal <5.0 [facility] Comment on above: Performed By: #### L IPID, TSH3, CMP, CBC #### [address] LDL Cholesterol,Calculat ed 121 mg/dL High 0-100 [facility] Comment on above: Result Comment: LDL ATP III CLASSIFICATION LDL less than 100 mg/dL Optimal LDL 100-129 mg/dL Near or above optimal LDL 130-159 mg/dL Borderline high LDL 160-189 mg/dL High LDL greater than 189 mg/dL Very high Performed By: #### L IPID, TSH3, CMP, CBC #### [address] Triglyceride w/Reflex 122 mg/dL Normal 0-149 [facility] Comment on above: Result Comment: TRIG ATP III CLASSIFICATION TRIG less than 150 mg/dL Normal TRIG 150-199 mg/dL Borderline high TRIG 200-500 mg/dL High TRIG greater than 500 mg/dL Very high Standard traceable to the Center for Disease Conrtrol and Prevention (CDC) test method. Performed By: #### L IPID, TSH3, CMP, CBC #### [address] VLDL CHOLESTEROL 24 mg/dL Normal [facility] Comment on above: Performed By: #### L IPID, TSH3, CMP, CBC #### [address] Thyroid Stimulating Hormoneo n 09-03-2023 TSH Qn 4.01 m[IU]/L Normal 0.45-5.[address] [facility] Comment on above: Result Comment: PERF ORMED BY: [place] [address] PATHOLOGIST STRETCHER DRIER OPERATOR JODY SOLANO M.D. Performed By: #### L IPID, TSH3, CMP, CBC #### [place] [id number] [place] Complete Blood Count Auto Di ffon 07-08-2023 Basophils (Bld) [#/Vol] 0.172248648 10*3/uL Normal 0.0-0.2 10*3/uL [facility] Other Basophils/100 WBC (Bld) 0.900 % . % [facility] Other Eosinophils (Bld) [#/Vol] 0.371808533 10*3/uL Normal 0.0-0.45 10*3/uL [facility] Other Eosinophils/100 WBC (Bld) 1.100 % . % [facility] Other Erythrocyte distribution width (RBC) [Ratio] 14.000 % Normal 11.9-15.3 % [facility] Other Hematocrit (Bld) [Volume fraction] 37.700 % Normal 34.0-46.4 % [facility] Other Hemoglobin (Bld) [Mass/Vol] 12.246955 g/dL Normal 11.8-15.4 g/dL [facility] Other Lymphocytes (Bld) [#/Vol] 2.962039347 10*3/uL Normal 1.00-4.8 10*3/uL [facility] Other Lymphocytes/100 WBC (Bld) 35.100 % . % [facility] Other MCH (RBC) [Entitic mass] 33.3000 pg Normal 24.7-34.3 pg [facility] Other MCV (RBC) [Entitic vol] 99.7000 fL Normal 80-100 fL [facility] Other Monocytes (Bld) [#/Vol] 0.675404313 10*3/uL Normal 0.0-0.8 10*3/uL [facility] Other Monocytes/100 WBC (Bld) 10.000 % . % [facility] Other Neutrophils (Bld) [#/Vol] 3.180258170 10*3/uL Normal 1.8-7.7 10*3/uL [facility] Other Neutrophils/100 WBC (Bld) 52.900 % . % [facility] Other Platelet mean volume (Bld) [Entitic vol] 9.9000 fL Normal 6.3-10.7 fL [facility] Other Platelets (Bld) [#/Vol] 224 10*3/uL Normal 150-450 10*3/uL [facility] Other RBC (Bld) [#/Vol] 3.78 10*6/uL Normal 3.60-5.00 [facility] Other WBC (Bld) [#/Vol] 7.257975730 10*3/uL Normal 3.8 -11.6 10*3/uL [facility] Other Complete Blood Count Auto Diff 7.1 10*3/uL Normal 3.8-11.6 10*3/uL [facility] Other Complete Blood Count Auto Diff 33.4 g/dL Normal 32.0-35.0 g/dL [facility] Other Complete Blood Count Auto Diff 0.1 /100{WBC} Normal 0-0.5 /100{WBC} [facility] Other Comprehensive Metabolic Pane nory 07-08-2023 Albumin [Mass/Vol] 3.370857 g/dL Normal 3.5-5.7 g/dL [facility] [employer] Other Albumin/Globulin [Mass ratio] 1.7 {ratio} [facility] Other ALP [Catalytic activity/Vol] 140 U/L High 34-104 U/L [facility] Other ALT [Catalytic activity/Vol] 71 U/L High 7-52 U/L [facility] Other AST [Catalytic activity/Vol] 20 U/L Normal 13-39 U/L [place] [employer] Other Bilirubin [Mass/Vol] 0.9546232 mg/dL Normal 0.3-1.0 mg /dL [facility] Other Calcium [Mass/Vol] 9.4327710 mg/dL Normal 8.6-10 .3 mg/dL [facility] Other Chloride [Moles/Vol] 107 mmol/L Normal 98-107 mmol/L N [facility] [employer] Other CO2 [Moles/Vol] 30.51766349 mmol/L Normal 21.0-3 1.0 mmol/L [facility] Other Creatinine [Mass/Vol] 0.20061414 mg/dL Normal 0.60-1.20 mg/dL [facility] Other GFR/1.73 sq M.predicted MDRD (S/P/Bld) [Vol rate/Area] mL/min/{1.73_m2} [facility] Other Glucose [Mass/Vol] 89 mg/dL Normal 70-100 mg/dL [place] [employer] Other Potassium [Moles/Vol] 3.00979868 mmol/L Normal 3.5-5.1 mmol/L [facility] Other Protein [Mass/Vol] 6.159607 g/dL Low 6.4-8.9 g/dL N [facility] [employer] Other Sodium [Moles/Vol] 143 mmol/L Normal 136-145 mmol/L [facility] Other Urea nitrogen [Mass/Vol] 21 mg/dL Normal 7-25 mg/dL [facility] Other Comprehensive Metabolic Panel 2.2 g/dL [facility] Other Free T4 (Free Thyroxine)on 0 07-08-2023 Free T4 [Mass/Vol] 1.90694056 ng/dL High 0.61- 1.12 ng/dL [facility] Other Thyroid Antibodies TPO+Tg Ab on 07-08-2023 Thyroid Antibodies TPO+Tg Ab 11 0-34 [facility] Other Thyroid Antibodies TPO+Tg Ab <1.0 0.0-0.9 [facility] Other Thyroid Stimulating Hormoneo n 07-08-2023 TSH Qn 2.73884656091 m[IU]/L Normal 0.45-5 .33 u[iU]/mL [facility] Other Echocardiogramon 02-26-[address], [place] [address] TRANSTHORACIC ECHOCARDIOGRAM REPORT Patient Name: LAVONNE Bahena Physician: [id number] Shy Wolf [facility] Study Date: 02/26/2023 Referring SHY WOLF Physician: MRN/PID: [id number] PCP: Suhas Garrett MD Accession/Order#: [id number] [facility] Location: Date of : 1935 Fellow: Gender: F Nurse: Admit Date: Supervisor [employer]: [facility] Height: 157.48 cm CC Report to: Weight: 67.13 kg Study Type: Echocardiogram BSA: 1.68 m2 Blood Pressure: 122 /76 mmHg Diagnosis/ICD: I35.0-Nonrheumatic aortic (valve) stenosis; R01.1-Cardiac murmur, unspecified Indication: HTN, Hyperlipidemia, Overweight, Hypothyroid, Polymyalgia Rheumatica Procedure/CPT: Echo Complete w Full Doppler-[id number] Study Detail: The following Echo studies were [...] mmHg PIEDV: 2.50 m/s PADP: 28.0 mmHg [id number] Shy Wolf MD, [facility] Electronically signed on 03/01/2023 at 2:16:46 PM Final Normal [facility] Office Visit (Cardiology)on 12-24-2022 Follow-up visit Diagnoses/Problems Assessed Aortic stenosis (424.1) (I35.0) Murmur, cardiac (785.2) (R01.1) Essential hypertension (401.9) (I10) Hyperlipidemia (272.4) (E78.5) Overweight with body mass index (BMI) of 27 to 27.9 in adult (278.02,V85.23) (E66.3,Z68.27) Never smoker Hypothyroidism (244.9) (E03.9) PMR (polymyalgia rheumatica) (725) (M35.3) Orders Aortic stenosis, Murmur, cardiac Echocardiogram; Status:Hold For - Scheduling,Retrospect bola Authorization; Requested for:[id number]; Essential hypertension, Hyperlipidemia Changed: From Aspirin EC 81 MG TBEC TAKE 1 TABLET To Aspirin 81 MG Oral Tablet Delayed Release TAKE 1 TABLET DAILY Overweight with body mass index (BMI) of 27 to 27.9 in adult Healthy Weight Tips; Status:Complete - Retrospective Authorization; Done: [id number] Some eating tips that can help you lose weight.; Status:Complete - Retrospective Authorization; Done: [id number] SocHx: Never smoker Tobacco Use Screening; Status:Complete; Done: [id number] Patient Instructions Please bring all medicines, vitamins, [...] being tapered gradually Shy Wolf MD, FACC Past Medical History Problems History of Carotid [...] Multi Vitamin Oral TabletTAKE 1 TABLET DAILY. [place]-3 Fish Oil 1000 MG Oral CapsuleTAKE 1 [...] negative for complaint. Vitals Vital Signs Recorded: [id number] 11:32AM Heart Rate68, R Radial Qampniac726, RUE, Sitting Mdivmlpxp60, RUE, Sitting Height5 ft 2 in Usmxyf109 lb BMI Aeuwkscncs77.07 kg/m2 BSA Calculated1.68 Tobacco Useb) No PHQ-2 [...] distress a (more content not included)... Normal [employer] Tobacco Screening.on 023 Adult depression screening assessment No [facility] Missing[facility] Work Phone: Fall risk assessment a) No falls within the last year [facility] [employer] 250 DO Work Phone: Tobacco use status CP b) No [facility] DO Work Phone: Complete Blood Count Auto Di ffon 02-22-2022 Basophils (Bld) [#/Vol] 0.753709066 10*3/uL Normal 0.0-0.2 10*3/uL [facility] Other Basophils/100 WBC (Bld) 0.700 % . % [facility] Other Eosinophils (Bld) [#/Vol] 0.470456585 10*3/uL Normal 0.0-0.45 10*3/uL [facility] Other Eosinophils/100 WBC (Bld) 0.700 % . % [facility] Other Erythrocyte distribution width (RBC) [Ratio] 13.500 % Normal 11.9-15.3 % [facility] Other Hematocrit (Bld) [Volume fraction] 38.400 % Normal 34.0-46.4 % [facility] Other Hemoglobin (Bld) [Mass/Vol] 12.448173 g/dL Normal 11.8-15.4 g/dL [facility] Other Lymphocytes (Bld) [#/Vol] 0.707629114 10*3/uL Low 1.00-4.8 10*3/uL [facility] Other Lymphocytes/100 WBC (Bld) 12.600 % . % [facility] Other MCH (RBC) [Entitic mass] 33.7000 pg Normal 24.7-34.3 pg [facility] Other MCV (RBC) [Entitic vol] 100.4000 fL High 80-100 fL [facility] Other Monocytes (Bld) [#/Vol] 0.216765298 10*3/uL Normal 0.0-0.8 10*3/uL [facility] Other Monocytes/100 WBC (Bld) 6.800 % . % [facility] Other Neutrophils (Bld) [#/Vol] 5.648968135 10*3/uL Normal 1.8-7.7 10*3/uL [facility] Other Neutrophils/100 WBC (Bld) 79.200 % . % [facility] Other Platelet mean volume (Bld) [Entitic vol] 9.4000 fL Normal 6.3-10.7 fL [facility] Other Platelets (Bld) [#/Vol] 223 10*3/uL Normal 150-450 10*3/uL [facility] Other RBC (Bld) [#/Vol] 3.7248133158 10*6/uL Normal 3. 60-5.00 10*6/uL [facility] Other WBC (Bld) [#/Vol] 6.124635794 10*3/uL Normal 3.8 -11.6 10*3/uL [facility] Other Complete Blood Count Auto Diff 6.6 10*3/uL Normal 4.5-11.0 10*3/uL [facility] Other Complete Blood Count Auto Diff 33.6 g/dL Normal 32.0-35.0 g/dL [facility] Other Complete Blood Count Auto Diff 0.1 % Normal 0-0.5 % [facility] Other Erythrocyte Sedimentation Ra amy 02-22-2022 ESR (Bld) [Velocity] 28 mm/h Normal 0-29 [facility] [employer] Other VASC LAB Carotid Artery Dupl ex Ultrasoundon 02-21-2022 US.doppler Carotid arteries [facility] [employer] [address] [place] Work Phone: COVID Quick Testingon 2021 Result Positive [facility] Other Falls Screening (Age 18+)on 12-26-2021 Fall risk assessment a) No falls within the last year [facility] [employer] 250 DO Work Phone: Office Visit (Cardiology)on 12-26-2021 Follow-up visit Diagnoses/Problems Assessed Essential hypertension (401.9) (I10) Patient Instructions By signing my name below, Sherin Sparks Lpn, Scribe, attest that this documentation has [...] Multi Vitamin Oral TabletTAKE 1 TABLET DAILY. [place] 3 500 CAPSTAKE 1 CAPSULE Daily predniSONE 5 MG Oral Isiszj9UR 7.5MG BY MOUTH ONE DAILY ALTERNATING EVERY OTHER DAY Allergies Medication amoxicillin Hives;; Recorded By: Kayla Orr; 10/17/2021 10:50:34 AM Dilantin CAPS Rash; Recorded By: Kayla Orr; 10/17/2021 10:50:34 AM Fosamax eye pain; Recorded By: Kayla Orr; 10/17/2021 10:50:34 AM Depakote ER TB24 Recorded By: Kayla Orr; 10/17/2021 10:50:34 AM Vitals Vital Signs Recorded: [id number] 11:04AMRecorded: 85Thl6295 11:00AM Heart Rate56, R Lkpvnp59, R Radial Upvuteme553, LUE, Iacheqr633, RUE Kyzddtmhh90, LUE, Nemicau30, RUE Height5 ft 2 in5 ft 2 in Taqlql844 lb 143 lb BMI Xewgwjynug12.16 kg/m226.16 kg/m2 BSA Calculated1.661.66 Falls Screening (Age 18+)a) No falls within the last year Signatures Electronically signed by : Shy Wolf MD; Dec 26 2021 4:02PM EST (Author) Normal [employer] Tobacco Screening.on 022 Adult depression screening assessment No [facility] Work Phone: Fall risk assessment a) No falls within the last year [facility] Work Phone: Tobacco use status CPHS b) No [facility] Work Phone: Vital Signs Date Time Vital Sign Value 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 Facility 07-04-2023 11:15-0500 Body height 157.48 cm Suhas Garrett Other [facility] Other 07-04-2023 11:15-0500 Body mass index (BMI) [Ratio] 28.53 kg/m2 Suhas Garrett Other [facility] Other 07-04-2023 11:15-0500 Body weight 70.76 kg Suhas Garrett Other [facility] Other 07-04-2023 11:15-0500 Diastolic blood pressure 84 mm[Hg] Suhas Garrett Other [facility] Other 07-04-2023 11:15-0500 Respiratory rate 20 /min Suhas Garrett Other [facility] Other 07-04-2023 11:15-0500 SaO2% (BldA) [Mass fraction] 99 % Suhas Garrett Other [facility] Other 07-04-2023 11:15-0500 Systolic blood pressure 150 mm[Hg] Suhas Garrett Other [facility] Other 06-19-2023 11:09-0500 Body height 157.5 cm Shy Wolf MD Work Phone: [facility] 06-19-2023 11:09-0500 Body mass index (BMI) [Ratio] 27.98 kg/m2 Shy Wolf MD Work Phone: [facility] 06-19-2023 11:09-0500 Body weight 69.4 kg Shy Wolf MD Work Phone: [facility] 06-19-2023 11:09-0500 Diastolic blood pressure 76 mm[Hg] Shy Wolf MD Work Phone: [facility] 06-19-2023 11:09-0500 Heart rate 60 /min Shy Wolf MD Work Phone: [facility] 06-19-2023 11:09-0500 Systolic blood pressure 120 mm[Hg] Shy Wolf MD Work Phone: [facility] 05-30-2023 11:00-0500 Body height 157.48 cm Suhas Garrett Other [facility] Other 05-30-2023 11:00-0500 Body mass index (BMI) [Ratio] 27.8 kg/m2 Suhas Garrett Other [facility] Other 05-30-2023 11:00-0500 Body weight 68.95 kg Suhas Garrett Other [facility] Other 05-30-2023 11:00-0500 Diastolic blood pressure 80 mm[Hg] Suhas Garrett Other [facility] Other 05-30-2023 11:00-0500 Respiratory rate 18 /min Suhas Garrett Other [facility] Other 05-30-2023 11:00-0500 SaO2% (BldA) [Mass fraction] 96 % Suhas Garrett Other [facility] Other 05-30-2023 11:00-0500 Systolic blood pressure 122 mm[Hg] Suhas Garrett Other [facility] Other 02-28-2023 10:30-0400 Body height 157.48 cm Suhas Garrett Other [facility] Other 02-28-2023 10:30-0400 Body mass index (BMI) [Ratio] 27.98 kg/m2 Suhas Garrett Other [facility] Other 02-28-2023 10:30-0400 Body weight 69.4 kg Suhas Garrett Other [facility] Other 02-28-2023 10:30-0400 Diastolic blood pressure 76 mm[Hg] Suhas Garrett Other [facility] Other 02-28-2023 10:30-0400 Respiratory rate 16 /min Suhas Garrett Other [facility] Other 02-28-2023 10:30-0400 SaO2% (BldA) [Mass fraction] 91 % Suhas Garrett Other [facility] Other 02-28-2023 10:30-0400 Systolic blood pressure 134 mm[Hg] Suhas Garrett Other [facility] Other 12-24-2022 11:32-0400 Body height 157.48 cm Suhas Garrett Work Phone: [facility] [employer] DO Work Phone: 12-24-2022 11:32-0400 Body mass index (BMI) [Ratio] 27.07 kg/m2 Suhas Garrett Work Phone: [facility] [employer] 250 DO Work Phone: 12-24-2022 11:32-0400 Body surface area Derived from formula 1.68 m2 Suhas Garrett Work Phone: [facility] 250 DO Work Phone: 12-24-2022 11:32-0400 Body weight 67.13 kg Suhas Mayos Work Phone: [facility] 250 DO Work Phone: 12-24-2022 11:32-0400 Diastolic blood pressure 76 mm[Hg] Suhas Mayos Work Phone: [facility] 250 DO Work Phone: 12-24-2022 11:32-0400 Heart rate 68 /min Suhas Garrett Work Phone: [facility] 250 DO Work Phone: 12-24-2022 11:32-0400 Systolic blood pressure 118 mm[Hg] Suhasraquel Garrett Work Phone: [facility] 250 DO Work Phone: 12-06-2022 10:30-0400 Body height 157.48 cm Suhas Garrett Other [email or web address] [facility] [employer] Other 12-06-2022 10:30-0400 Body mass index (BMI) [Ratio] 27.98 kg/m2 Suhas Garrett Other [facility] Other 12-06-2022 10:30-0400 Body weight 69.4 kg Suhas Garrett Other [facility] Other 12-06-2022 10:30-0400 Diastolic blood pressure 70 mm[Hg] Suhas Garrett Other [facility] Other 12-06-2022 10:30-0400 Respiratory rate 16 /min Suhasraquel Mayoadan Other [facility] Other 12-06-2022 10:30-0400 SaO2% (BldA) [Mass fraction] 98 % Suhas Garrett Other [facility] Other 12-06-2022 10:30-0400 Systolic blood pressure 146 mm[Hg] Suhas Garrett Other [facility] Other 09-20-2022 11:45-0400 Body height 157.48 cm Suhas Garrett Other [facility] Other 09-20-2022 11:45-0400 Body mass index (BMI) [Ratio] 26.34 kg/m2 Suhas Garrett Other [facility] Other 09-20-2022 11:45-0400 Body weight 65.32 kg Suhas Ugo Other [facility] Other 09-20-2022 11:45-0400 Diastolic blood pressure 70 mm[Hg] Suhas Garrett Other [facility] Other 09-20-2022 11:45-0400 Respiratory rate 16 /min Suhas Garrett Other [facility] Other 09-20-2022 11:45-0400 SaO2% (BldA) [Mass fraction] 98 % Suhas Garrett Other [facility] Other 09-20-2022 11:45-0400 Systolic blood pressure 130 mm[Hg] Suhas Garrett Other [facility] Other 07-22-2022 11:30-0500 Body height 157.48 cm Suhas Garrett Other [facility] Other 07-22-2022 11:30-0500 Body mass index (BMI) [Ratio] 26.85 kg/m2 Suhas Garrett Other [facility] Other 07-22-2022 11:30-0500 Body weight 66.59 kg Suhas Garrett Other [facility] Other 07-22-2022 11:30-0500 Diastolic blood pressure 70 mm[Hg] Suhas Garrett Other [facility] Other 07-22-2022 11:30-0500 Respiratory rate 16 /min Suhas Garrett Other [facility] Other 07-22-2022 11:30-0500 SaO2% (BldA) [Mass fraction] 98 % Suhas Garrett Other [facility] Other 07-22-2022 11:30-0500 Systolic blood pressure 122 mm[Hg] Suhas Garrett Other [facility] Other 04-17-2022 11:45-0500 Body height 157.48 cm Suhas Garrett Other [facility] Other 04-17-2022 11:45-0500 Body mass index (BMI) [Ratio] 26.88 kg/m2 Suhas Garrett Other [facility] Other 04-17-2022 11:45-0500 Body weight 66.68 kg Suhas Garrett Other [facility] Other 04-17-2022 11:45-0500 Diastolic blood pressure 72 mm[Hg] Suhas Ugo Other [facility] Other 04-17-2022 11:45-0500 Respiratory rate 16 /min Suhas Ugo Other [facility] Other 04-17-2022 11:45-0500 SaO2% (BldA) [Mass fraction] 99 % Suhas Nikiaadan Other [facility] Other 04-17-2022 11:45-0500 Systolic blood pressure 138 mm[Hg] Suhas Garrett Other [facility] Other 02-22-2022 10:15-0400 Body height 157.48 cm Suhas Ugo Other [facility] Other 02-22-2022 10:15-0400 Body mass index (BMI) [Ratio] 27.07 kg/m2 Suhas Garrett Other [facility] Other 02-22-2022 10:15-0400 Body weight 67.13 kg Suhas Garrett Other [facility] Other 02-22-2022 10:15-0400 Diastolic blood pressure 70 mm[Hg] Suhas Garrett Other [facility] Other 02-22-2022 10:15-0400 Respiratory rate 16 /min Suhas Garrett Other [facility] Other 02-22-2022 10:15-0400 SaO2% (BldA) [Mass fraction] 97 % Suhas Garrett Other [facility] Other 02-22-2022 10:15-0400 Systolic blood pressure 122 mm[Hg] Suhas Garrett Other [facility] Other 02-21-2022 10:45-0400 70 1 Suhas Garrett Work Phone: [facility] [address] [place] Work Phone: Comment on above: [id number] 02-14-2022 15:45-0400 Body height 157.48 cm Suhas Garrett Other [facility] Other 02-14-2022 15:45-0400 Body mass index (BMI) [Ratio] 26.7 kg/m2 Suhas Garrett Other [facility] Other 02-14-2022 15:45-0400 Body weight 66.23 kg Suhas Garrett Other [facility] Other 02-14-2022 15:45-0400 Diastolic blood pressure 72 mm[Hg] Suhas Garrett Other [facility] Other 02-14-2022 15:45-0400 Respiratory rate 16 /min Suhas Garrett Other [facility] Other 02-14-2022 15:45-0400 SaO2% (BldA) [Mass fraction] 96 % Suhas Garrett Other [facility] Other 02-14-2022 15:45-0400 Systolic blood pressure 132 mm[Hg] Suhas Garrett Other [facility] Other 12-26-2021 11:04-0400 Body height 157.48 cm Suhas Garrett Work Phone: [facility] 250 DO Work Phone: 12-26-2021 11:04-0400 Body mass index (BMI) [Ratio] 26.16 kg/m2 Suhas Garrett Work Phone: [facility] 250 DO Work Phone: 12-26-2021 11:04-0400 Body surface area Derived from formula 1.66 m2 Suhas Garrett Work Phone: [facility] 250 DO Work Phone: 12-26-2021 11:04-0400 Body weight 64.86 kg Suhas Garrett Work Phone: [facility] 250 DO Work Phone: 12-26-2021 11:04-0400 Diastolic blood pressure 68 mm[Hg] Suhas Garrett Work Phone: [facility] 250 DO Work Phone: 12-26-2021 11:04-0400 Heart rate 56 /min Suhas Garrett Work Phone: [facility] 250 DO Work Phone: 12-26-2021 11:04-0400 Systolic blood pressure 126 mm[Hg] Suhas Garrett Work Phone: [facility] 250 DO Work Phone: 12-26-2021 11:00-0400 Diastolic blood pressure 70 mm[Hg] Suhas Garrett Work Phone: [facility] 250 DO Work Phone: 12-26-2021 11:00-0400 Systolic blood pressure 130 mm[Hg] Suhas Garrett Work Phone: [facility] [facility] DO Work Phone: 12-13-2021 11:39-0400 Diastolic blood pressure 80 mm[Hg] Suhas Garrett Work Phone: [facility] Work Phone: 12-13-2021 11:39-0400 Systolic blood pressure 170 mm[Hg] Suhas Garrett Work Phone: [facility] Work Phone: 12-13-2021 11:22-0400 Diastolic blood pressure 80 mm[Hg] Suhas Garrett Work Phone: [facility] Work Phone: 12-13-2021 11:22-0400 Systolic blood pressure 158 mm[Hg] Suhas Garrett Work Phone: [facility] Work Phone: 12-13-2021 11:17-0400 Body height 157.48 cm Suhas Garrett Work Phone: [facility] Work Phone: 12-13-2021 11:17-0400 Body mass index (BMI) [Ratio] 26.52 kg/m2 Suhas Garrett Work Phone: [facility] Work Phone: 12-13-2021 11:17-0400 Body surface area Derived from formula 1.67 m2 Suhas Garrett Work Phone: [facility] Work Phone: 12-13-2021 11:17-0400 Body weight 65.77 kg Suhas Garrett Work Phone: [facility] Work Phone: 12-13-2021 11:17-0400 Diastolic blood pressure 80 mm[Hg] Suhas Garrett Work Phone: [facility] Work Phone: 12-13-2021 11:17-0400 Heart rate 60 /min Suhas Garrett Work Phone: [facility] Work Phone: 12-13-2021 11:17-0400 Systolic blood pressure 160 mm[Hg] Suhas Mayoadan Work Phone: [facility] Work Phone: 10-01-2021 13:30-0400 Body height 157.48 cm Suhas Garrett Other [facility] Other 10-01-2021 13:30-0400 Body mass index (BMI) [Ratio] 26.34 kg/m2 Suhas Garrett Other [facility] Other 10-01-2021 13:30-0400 Body weight 65.32 kg Suhas Garrett Other [facility] Other 10-01-2021 13:30-0400 Diastolic blood pressure 72 mm[Hg] Suhas Garrett Other [facility] Other 10-01-2021 13:30-0400 Respiratory rate 18 /min Suhas Garrett Other [facility] Other 10-01-2021 13:30-0400 SaO2% (BldA) [Mass fraction] 99 % Suhas Garrett Other [facility] Other 10-01-2021 13:30-0400 Systolic blood pressure 130 mm[Hg] Suhas Garrett Other [facility] Other 08-02-2021 13:30-0500 Body height 157.48 cm Suhas Garrett Other [facility] Other 08-02-2021 13:30-0500 Body mass index (BMI) [Ratio] 26.52 kg/m2 Suhas Garrett Other [facility] Other 08-02-2021 13:30-0500 Body weight 65.77 kg Suhas Garrett Other [facility] Other 08-02-2021 13:30-0500 Diastolic blood pressure 70 mm[Hg] Suhas Garrett Other [facility] Other 08-02-2021 13:30-0500 Respiratory rate 16 /min Suhas Garrett Other [facility] Other 08-02-2021 13:30-0500 SaO2% (BldA) [Mass fraction] 99 % Suhas Garrett Other [facility] Other 08-02-2021 13:30-0500 Systolic blood pressure 118 mm[Hg] Suhas Garrett Other [facility] Other 04-26-2021 13:30-0500 Body height 157.48 cm Suhas Garrett Other [facility] Other 04-26-2021 13:30-0500 Body mass index (BMI) [Ratio] 25.97 kg/m2 Suhas Garrett Other [facility] Other 04-26-2021 13:30-0500 Body weight 64.41 kg Suhas Garrett Other [facility] Other 04-26-2021 13:30-0500 Diastolic blood pressure 74 mm[Hg] Suhasraquel Mayoadan Other [facility] Other 04-26-2021 13:30-0500 Respiratory rate 17 /min Suhas Ugo Other [facility] Other 04-26-2021 13:30-0500 SaO2% (BldA) [Mass fraction] 98 % Suhas Garrett Other [facility] Other 04-26-2021 13:30-0500 Systolic blood pressure 120 mm[Hg] Suhas Nikiaadan Other [facility] Other Encounters Encounter Date Encounter Type Care Provider Facility Start: 09-13-2024 End: 09-13-2024 ambulatory Gloria Weston MD Facility:[facility] Start: 07-28-2024 End: 07-28-2024 ambulatory Suhas Garrett Facility:[facility] Start: 05-25-2024 End: 05-25-2024 ambulatory Suhas Garrett Facility:[facility] Start: 04-16-2024 End: 04-16-2024 ambulatory [facility] Start: 02-23-2024 End: 02-23-2024 ambulatory Gloria Weston MD Facility:[facility] Start: 02-11-2024 End: 02-11-[address] [facility] Start: 11-24-2023 End: 11-24-2023 ambulatory Gloria Weston MD Facility:[facility] Start: 11-17-2023 End: 11-17-2023 ambulatory Gloria Weston MD Facility:[facility] Start: 10-20-2023 End: 10-20-2023 ambulatory Gloria Weston MD Facility:[facility] Start: 10-14-2023 End: 10-14-2023 ambulatory Suhas Garrett Facility:[facility] Start: 09-29-2023 End: 09-29-2023 ambulatory Gloria Weston MD Facility:[facility] Start: 09-03-2023 End: 09-03-2023 ambulatory Suhas Garrett Facility:[facility] Start: 07-18-2023 End: 07-18-2023 ambulatory Suhas Garrett Other [facility] Other Start: 07-18-2023 Telephone encounter Suhas Garrett [facility] Start: 07-15-2023 End: 07-15-2023 ambulatory Suhas Garrett Other [facility] Other Start: 07-15-2023 Telephone encounter Suhas Garrett [facility] Start: 07-10-2023 End: 07-10-2023 ambulatory Suhas Garrett Other [facility] Other Start: 07-10-2023 Telephone encounter Suhas Garrett [facility] Start: 07-07-2023 End: 07-07-2023 ambulatory Suhas Garrett Other [facility] Other Start: 07-07-2023 Telephone encounter Suhas Garrett [facility] Start: 07-04-2023 End: 07-04-2023 ambulatory Suhas Garrett Other [facility] Other Start: 07-04-2023 Office outpatient vi sit 15 minutes Suhas Garrett [facility] Start: 06-19-2023 Telephone encounter Suhas Garrett [facility] Start: 06-19-2023 End: 06-19-2023 Office outpatient visit 25 minutes Shy Wolf MD Work Phone: [facility] Comment on above: Aortic valve stenosi s, etiology of cardiac valve disease unspecified; Essential hypertension; Hyperlipidemia, unspecified hyperlipidemia type; Never smoked any substance Start: 06-19-2023 End: 06-19-2023 ambulatory SHY WOLF [facility] Other Start: 05-30-2023 End: 05-30-2023 ambulatory Suhas Garrett Other [facility] Other Start: 05-30-2023 Office outpatient vi sit 25 minutes Suhas Garrett [facility] Start: 05-28-2023 End: 05-28-2023 ambulatory Suhas Garrett Other [facility] Other Start: 05-28-2023 Telephone encounter Suhas Garrett [facility] Start: 04-23-2023 End: 04-23-2023 ambulatory Suhas Garrett Other [facility] Other Start: 04-23-2023 Telephone encounter Suhas Garrett [facility] Start: 04-18-2023 End: 04-18-2023 ambulatory Suhas Garrett Other [facility] Other Start: 04-18-2023 Telephone encounter Suhas Garrett [facility] [place] Start: 03-02-2023 Chart Update Suhas Garrett Work Phone: [facility] 250 DO Work Phone: Start: 02-28-2023 End: 02-28-2023 ambulatory Suhas Garrett Other [facility] Other Start: 02-28-2023 Office outpatient vi sit 15 minutes Suhas Garrett [facility] [place] Start: 02-26-[address] Suhas raza Kuns Facility:[id number] Start: 01-27-2023 End: 01-27-2023 ambulatory Suhas Garrett Other [facility] Other Start: 01-27-2023 Telephone encounter Suhas Garrett [facility] [place] Start: 12-24-2022 Office outpatient vi sit 25 minutes Suhas Garrett Work Phone: [facility] 250 DO Work Phone: Start: 12-24-[address] Shy Wolf Facility: Start: 12-06-2022 End: 12-06-2022 ambulatory Suhas Garrett Other [facility] Other Start: 12-06-2022 Office outpatient vi sit 15 minutes Suhas Garrett [facility] Start: 09-20-2022 End: 09-20-2022 ambulatory Suhas Garrett Other [facility] Other Start: 09-20-2022 Office outpatient vi sit 15 minutes Suhas Garrett [facility] Start: 08-14-2022 End: 08-14-2022 ambulatory Suhas Garrett Other [facility] Other Start: 08-14-2022 Telephone encounter Suhas Garrett [facility] Start: 07-22-2022 End: 07-22-2022 ambulatory Suhas Grarett Other [facility] Other Start: 07-22-2022 Office outpatient vi sit 15 minutes Suhas Garrett [facility] Start: 04-17-2022 End: 04-17-2022 ambulatory Suhas Garrett Other [facility] Other Start: 04-17-2022 Office outpatient vi sit 15 minutes Suhas Mayos [facility] Start: 04-10-2022 End: 04-10-2022 ambulatory Suhas Garrett Other [facility] Other Start: 04-10-2022 Telephone encounter Suhas Garrett [facility] Start: 04-03-2022 End: 04-03-2022 ambulatory Suhas Garrett Other [facility] Other Start: 04-03-2022 Telephone encounter Suhas Garrett [facility] [place] Start: 04-02-2022 End: 04-02-2022 ambulatory Suhas Nikiaadan Other [facility] Other Start: 04-02-2022 Telephone encounter Suhas Ugo [facility] [place] Start: 02-26-2022 End: 02-26-2022 ambulatory Suhas Garrett Other [facility] Other Start: 02-26-2022 Telephone encounter Suhasraquel Garrett [facility] [place] Start: 02-25-2022 End: 02-25-2022 ambulatory Suhas Garrett Other [facility] Other Start: 02-25-2022 Telephone encounter Suhas Garrett [facility] [place] Start: 02-22-2022 End: 02-22-2022 ambulatory Suhas Garrett Other [facility] Other Start: 02-22-2022 Office outpatient vi sit 25 minutes Suhas Garrett [facility] [place] Start: 02-21-2022 Patient encounter procedure Suhas Garrett Work Phone: [place] [id number] MD Work Phone: Start: 02-20-2022 End: 02-21-2022 ambulatory MAYO CARBAJAL Facility: Start: 02-14-2022 End: 02-14-2022 ambulatory Suhas Garrett Other [facility] Other Start: 02-14-2022 Office outpatient vi sit 25 minutes Suhas Garrett [facility] [place] Start: 01-11-2022 End: 01-11-2022 ambulatory Suhas Garrett Other [facility] Other Start: 01-11-2022 Nursing evaluation o f patient and report Suhas Garrett [facility] [place] Start: 01-11-2022 Telephone encounter Suhas Garrett [facility] [place] Start: 12-26-2021 Office outpatient vi sit 10 minutes Suhas Garrett Work Phone: [facility] 250 DO Work Phone: Start: 12-26-[address] Suhas Garrett Facility: Start: 12-20-2021 End: 12-20-2021 ambulatory Suhas Garrett Other [facility] Other Start: 12-20-2021 [facility] Start: 12-13-2021 Office outpatient vi sit 25 minutes Suhas Garrett Work Phone: [facility] Work Phone: Start: 11-02-2021 End: 11-02-2021 ambulatory Suhas Garrett Other [facility] Other Start: 11-02-2021 Telephone encounter Suhas Garrett [facility] Start: 10-01-2021 End: 10-01-2021 ambulatory Suhas Garrett Other [facility] Other Start: 10-01-2021 Office outpatient vi sit 15 minutes Suhas Garrett [facility] [place] Start: 09-10-2021 End: 09-10-2021 ambulatory Suhas Garrett Other [facility] Other Start: 09-10-2021 [facility] Start: 08-20-2021 End: 08-20-2021 ambulatory Suhas Garrett Other [facility] Other Start: 08-20-2021 Telephone encounter Suhas Garrett [facility] Start: 08-02-2021 End: 08-02-2021 ambulatory Suhas Garrett Other [facility] Other Start: 08-02-2021 Office outpatient vi sit 15 minutes [facility] Start: 07-25-2021 End: 07-25-2021 ambulatory Suhas Garrett Other [facility] Other Start: 07-25-2021 Telephone encounter Suhas Garrett [facility] Start: 05-08-2021 End: 05-08-2021 ambulatory Suhas Garrett Other [facility] Other Start: 05-08-2021 Telephone encounter Suhas Garrett [facility] Start: 04-26-2021 End: 04-26-2021 ambulatory Suhas Garrett Other [facility] Other Start: 04-26-2021 Office outpatient vi sit 25 minutes Suhas Garrett [facility] Procedures Date Procedure Procedure Detail Performing [...] DTaP/Tdap/Td Vaccines (2 - Td or Tdap) [facility] Start: 03-16-2024 End: 03-16-2024 Patient encounter procedure 03/16/2024 11:20 AM EDT Office Visit [facility] [address] [place] [address] Shy Wolf MD [address] [place] [address] [facility] Start: 02-11-2024 End: 02-11-2024 Patient encounter procedure 02/11/2024 12:30 PM EDT Appointment [facility] [address] [place] [address] [facility] Start: 02-08-2024 End: 06-19-2025 [facility] Transthoracic Transthoracic Echo (TTE) Complete Echocardiography Routine Aortic valve stenosis, etiology of cardiac valve disease unspecified Expected: 02/08/2024 (Approximate), Expires: 06/19/2025 [facility] Service Area Work Phone: Comment on above: Expected: 02/08/2024 (Approximate), Expires: 06/19/2025 Start: 06-19-2023 FUV, Provider: Shy Wolf, Status: Pen, Time: 11:00 AM FUV, Provider: Shy Wolf, Status: Pen, [facility]: [facility] Start: 05-28-2023 COVID-19 Vaccine (5 - Moderna series) COVID-19 Vaccine (5 - Moderna series) [facility] Start: 02-26-2023 ECHO, Provider: [facility] ,[id number], Status: Pen, Time: 10:45 AM ECHO, Provider: [facility] ,[id number], Status: Pen, Time: 10:45 AM [facility] Work Phone: Start: 12-24-2022 FUV, Provider: Shy Wolf, Status: Pen, Time: 11:20 AM FUV, Provider: Shy Wolf, Status: Pen, Time: 11:20 AM [facility] Work Phone: Start: 02-21-2022 CAROTID, Provider: [facility] ULTRASOUND 01,[id number], Status: Pen, Time: 12:30 PM CAROTID, Provider: [facility]TR[facility] 01,[id number], Status: Pen, Time: 12:30 PM [facility] Work Phone: Start: 02-21-2022 ECHO, Provider: [facility]TR[facility] 01,[id number], Status: Pen, Time: 10:45 AM ECHO, Provider: [facility] 01,[id number], Status: Pen, Time: 10:45 AM [facility] Work Phone: Start: 01-17-2022 CAROTID, Provider: [facility] 01,[id number], Status: Pen, Time: 2:30 PM CAROTID, Provider: [facility] 01,[id number], Status: Pen, Time: 2:30 PM [facility] Work Phone: Start: 01-17-2022 ECHO, Provider: [facility]TR[facility] 01,[id number], Status: Pen, Time: 1:30 PM ECHO, Provider: [facility] 01,[id number], Status: Pen, Time: 1:30 PM [facility] Work Phone: Start: 12-26-2021 NURSEVST, Provider: MAGDA DANIEL TAPE SEWING MACHINE OPERATOR 1,[id number], Status: Pen, Time: 11:00 AM NURSEVST, Provider: MAGDA DANIEL TAPE SEWING MACHINE OPERATOR 1,[id number], Status: Pen, Time: 11:00 AM [facility] Work Phone: Start: 1935 Lipid panel Lipid Panel [facility] Start: 1935 Medicare Annual Wellness Visit Medicare Annual Wellness Visit (AWV) [facility] Start: 1935 Thyroid stimulating hormone measurement TSH Level [facility] Immunizations Immunization Date Immunization Notes Care Provider Fa cility 04-17-2022 Moderna COVID-19 Bivalent 50 MCG/0.5ML Intramuscular Suspension Suhas Garrett Work Phone: [facility] 250 DO Work Phone: 03-21-2022 Fluad Quadrivalent 0 .5 ML Intramuscular Prefilled Syringe Suhas Garrett Work Phone: [facility] 250 DO Work Phone: 03-21-2022 influenza, seasonal, injectable Suhas Garrett Other [facility] Other 11-14-2021 Moderna COVID-19 Vaccine 100 MCG/0.5ML Intramuscular Suspension Suhas Garrett Work Phone: [facility] Work Phone: 04-05-2021 Moderna COVID-19 Vaccine 100 MCG/0.5ML Intramuscular Suspension Suhas Garrett Work Phone: [facility] Work Phone: 03-19-2021 influenza, seasonal, injectable Suhas Garrett Other [facility] Other 08-08-2020 Moderna COVID-19 Vaccine 100 MCG/0.5ML Intramuscular Suspension Suhas Garrett Work Phone: [facility] Work Phone: 07-11-2020 Moderna COVID-19 Vaccine 100 MCG/0.5ML Intramuscular Suspension Suhas Garrett Work Phone: [facility] Work Phone: 04-28-2020 pneumococcal polysaccharide vaccine, 23 valent Suhas Garrett Other [facility] Other 03-06-2020 Seasonal trivalent influenza vaccine, adjuvanted, preservative free Suhas Garrett Work Phone: [facility] Work Phone: 03-06-2020 influenza, seasonal, injectable Suhas Garrett Other [facility] Other 02-08-2020 influenza virus vaccine, unspecified formulation Suhas Garrett Work Phone: [facility] Work Phone: 02-08-2020 influenza, seasonal, injectable Suhas Garrett Other [facility] Other 05-04-2019 zoster vaccine recombinant Suhas Garrett Other [facility] Other 03-09-2019 influenza, high dose seasonal, preservative-free Suhas Dalton Mayos Work Phone: [facility] Work Phone: 03-04-2019 influenza, seasonal, injectable Suhas Garrett Other [facility] Other 02-04-2019 zoster vaccine recombinant Suhas Garrett Other [facility] Other 05-12-2018 tetanus toxoid, redu bety diphtheria toxoid, and acellular pertussis vaccine, adsorbed Suhas Garrett Other [facility] Other 03-16-2018 Seasonal trivalent influenza vaccine, adjuvanted, preservative free Shy Wolf MD Work Phone: [facility] Work Phone: 03-09-2018 influenza virus vaccine, unspecified formulation Suhas P Nikias Work Phone: [facility] Work Phone: 04-09-2017 influenza virus vaccine, unspecified formulation Suhas P Nikias Work Phone: [facility] Work Phone: 03-28-2017 Seasonal trivalent influenza vaccine, adjuvanted, preservative free Suhas P Nkiias Work Phone: [facility] Work Phone: 05-23-2016 pneumococcal conjuga te vaccine, 13 valent Suhas Kuns Other [facility] Other 04-01-2016 Seasonal trivalent influenza vaccine, adjuvanted, preservative free Suhas P Kuns Work Phone: [facility] Work Phone: 03-09-2016 influenza virus vaccine, unspecified formulation Suhas P Nikias Work Phone: [facility] Work Phone: 03-09-2016 pneumococcal conjuga te vaccine, 13 valent Suhas P Nikias Work Phone: [facility] Work Phone: 04-07-2015 influenza, injectabl e, quadrivalent, contains preservative Suhas P Ugo Work Phone: [facility] Work Phone: 03-09-2015 influenza virus vaccine, unspecified formulation Suhas P Ugo Work Phone: [facility] Work Phone: 04-05-2014 influenza, seasonal, injectable, preservative free Suhas P Nikias Work Phone: [facility] Work Phone: 03-09-2014 influenza virus vaccine, whole virus Suhas Garrett Work Phone: [facility] Work Phone: 03-23-2013 influenza, seasonal, injectable Suhas P Kuns Work Phone: [facility] Work Phone: 03-09-2013 influenza virus vaccine, unspecified formulation Suhas P Nikias Work Phone: [facility] Work Phone: 04-14-2012 influenza, injectabl e, quadrivalent, contains preservative Suhas Kuns Other [facility] Other 06-09-2011 influenza virus vaccine, unspecified formulation Suhas Garrett Work Phone: [facility] Work Phone: 06-09-2010 influenza virus vaccine, unspecified formulation Suhas Garrett Work Phone: [facility] Work Phone: 06-09-2009 influenza virus vaccine, unspecified formulation Suhas Garrett Work Phone: [facility] Work Phone: 05-30-2009 novel [id number], preservative-free, injectable Suhas Garrett Work Phone: [facility] Work Phone: 10-19-2007 varicella virus vaccine Belkys Garrett Work Phone: [facility] Work Phone: 06-09-2006 pneumococcal polysaccharide vaccine, 23 valent Suhas Garrett Work Phone: [facility] Work Phone: Payers Date Payer Category Payer Self-pay 2022 Private Health Insurance [id number] 2001 Medicare MEDICARE MEDICAR E RAILROAD [id number] 2001-Present [address] [place] [address] [id number] 2001 Unknown 1959 Medicare [id number] 1959 Private Health Insurance [id number] 1936 Unknown [id number] .593 1936 Unknown [id number] [id number] .356 1936 Unknown [id number] [id number] .356 1936 Unknown [id number] .1068 1936 Unknown [id number] [id number] .1246 1936 Unknown [id number] 2.16.840.1.283589.3.579.2 .1244 1936 Unknown [id number] [id number] .1244 1936 Unknown [id number] 2.16.840.1.480257.3.579.2 .196 1936 Unknown [id number] 2.16.840.1.613099.3.579.2 .196 1936 Unknown [id number] 2.16.840.1.143293.3.579.2 .196 1936 Unknown [id number] 2.16.840.1.252688.3.579.2 .196 1936 Unknown [id number] 2.16.840.1.527906.3.579.2 .196 1936 Unknown [id number] 2.16.840.1.388703.3.579.2 .196 Unknown [id number] 2.16.840.1.212111.3.579.2 .531 Unknown [id number] 2.16.840.1.444837.3.579.2 .531 Unknown [id number] 2.16.840.1.344957.3.579.2 .531 Unknown [id number] [id number] .531 Social History Date Type Detail Facility Unknown if ever smoked [facility] Other Start: 06-19-2023 Sex Assigned At N [facility] Other Start: 06-19-2023 Caffeine use Caffeine use [facility] Work Phone: Start: 06-19-2023 Tobacco smoking status NHIS Never smoked tobacco [facility] Work Phone: Start: 06-19-2023 Tobacco use and exposure Smokeless tobacco non-user [facility] Work Phone: Start: 1935 [facility] Work Phone: Start: 06-09-2023 End: 06-19-2023 Exposure to SARS-CoV-2 (event) Not sure [facility] Clinical Notes 02-15-2015 to 07-18-2023 Note Date & Type Note Facility 07-18-2023 Evaluation note Encounter Date Diagnosis Assessment Notes Jul, PMR (polymya lgia rheumati ca) (ICD-10 - M35.3) [facility] Other 02-06-2024 Evaluation note* Encounter Date Diagnosis Assessment Notes Treatment Notes Treatment Clinical Notes Jul, PMR (polymyalgia rheumatica) (ICD-10 - M35.3) [facility] Other 02-01-2024 Evaluation note* Encounter Date Diagnosis Assessment Notes Treatment Notes Treatment Clinical Notes Jul, Hypothyroidism (ICD-10 - E03.9) [facility] Other 01-29-2024 Evaluation note* Encounter Date Diagnosis Assessment Notes Treatment Notes Treatment Clinical Notes Jun, Hypothyroidism (ICD- 10 - E03.9) Jun, Hyperthyroidism (ICD-10 - E05.90) [facility] Other 01-26-2024 Evaluation note* Encounter Date Diagnosis [...] in combination with eachother. Also discussed long term care phlebotomist steriod use in regards to her condition. [...] requires sooner she is welcome to call. [facility] Other 01-11-2024 Evaluation note* Encounter Date Diagnosis Assessment Notes Treatment Notes Treatment Clinical Notes Jun, PMR (polymyalgia rheumatica) (ICD-10 - M35.3) [facility] Other 01-11-2024 History of Present illness Narrative* [...] Scribe Attestation By signing my name below, Clare Mai Alli Chu LPN , Scribe attest that this documentation has been prepared under the direction and in the presence of Shy Wolf MD. [facility] Work Phone: 1(978) 265-928901-11-2024 Instructions* Patient Instructions* Yevgeniy Cortez MA - [...] time of your visit. [facility] Work Phone: 1(713) 988-925212-22-2023 Evaluation note* Encounter Date Diagnosis Assessment Notes [...] recommend the patient get the RSV vaccine. [facility] Other 12-20-2023 Evaluation note* Encounter Date Diagnosis Assessment Notes Treatment Notes Treatment Clinical Notes May, Hypertension (ICD-10 - I10) May, Hypothyroidism (ICD-10 - E03.9) [facility] Other 11-10-2023 Evaluation note* Encounter Date Diagnosis Assessment Notes Treatment Notes Treatment Clinical Notes Apr, PMR (polymyalgia rheumatica) (ICD-10 - M35.3) [facility] Other 09-22-2023 Evaluation note* Encounter Date Diagnosis Assessment Notes Treatment Notes Treatment Clinical Notes Feb, PMR (polymyalgia rheumatica) (ICD-10 - M35.3) She was encouraged to take 2.5mg daily. Patient is agreeable. Feb, Hypertension (ICD-10 - I10) Blood pressure is satisfactory, she is to follow with cardiology as scheduled. [facility] Other 08-21-2023 Evaluation note* Encounter Date Diagnosis Assessment Notes Treatment Notes Treatment Clinical Notes Jan, Hypertension (ICD-10 - I10) [facility] Other 06-30-2023 Evaluation note* Encounter Date Diagnosis [...] very confident this is due to [facility]. She will see Dr. Wolf in three weeks therefore was advised to make sure she discusses the swelling with him and see what he would like to do. Patient is agreeable. [facility] Other 04-14-2023 Evaluation note* Encounter Date Diagnosis [...] tablets daily. We will continue to monitor. [facility] Other 03-08-2023 Evaluation note* Encounter Date Diagnosis Assessment Notes Treatment Notes Treatment Clinical Notes Aug, PMR (polymyalgia rheumatica) (ICD-10 - M35.3) [facility] Other 02-13-2023 Evaluation note* Encounter Date Diagnosis [...] states she has an upcoming appointment with painting worker and she will discuss making medication changes at that time. [facility] Other 11-09-2022 Evaluation note* Encounter Date Diagnosis [...] can cut Apr, Hyperlipidemia (ICD-10 - E78.5) [facility] Other 11-02-2022 Evaluation note* Encounter Date Diagnosis Assessment Notes Treatment Notes Treatment Clinical Notes Apr, PMR (polymyalgia rheumatica) (ICD-10 - M35.3) [facility] Other 10-26-2022 Evaluation note* Encounter Date Diagnosis Assessment Notes Treatment Notes Treatment Clinical Notes Mar, Lumbar back pain (ICD-10 - M54.50) [facility] Other 09-20-2022 Evaluation note* Encounter Date Diagnosis Assessment Notes Treatment Notes Treatment Clinical Notes Feb, Elevated liver function tests (ICD-10 - R79.89) [facility] Other 09-16-2022 Evaluation note* Encounter Date Diagnosis [...] pain (ICD-10 - R10.13) The patient advised [place] could be causing her GI upset , [...] month Boniva at her next office visit. [facility] Other 09-08-2022 Evaluation note* Encounter Date Diagnosis [...] (ICD-10 - M85.80) Noted on Lumbar x-ray. [facility] Other 08-05-2022 Evaluation note* Encounter Date Diagnosis Assessment Notes Treatment Notes Treatment Clinical Notes Jan, COVID-19 (ICD-10 - U07.1) [facility] Other 08-05-2022 Evaluation note* Encounter Date Diagnosis Assessment Notes Treatment Notes Treatment Clinical Notes Jan, Cough (ICD-10 - R05.9) In house covid test is positive. Treatment plan discussed in TE. [facility] Other 07-14-2022 Evaluation note* Encounter Date Diagnosis Assessment Notes Treatment Notes Treatment Clinical Notes Dec, PMR (polymyalgia rheumatica) (ICD-10 - M35.3) [facility] Other 05-27-2022 Evaluation note* Encounter Date Diagnosis Assessment Notes Treatment Notes Treatment Clinical Notes October, PMR (polymyalgia rheumatica) (ICD-10 - M35.3) [facility] Other 04-25-2022 Evaluation note* Encounter Date Diagnosis [...] The patient encourged to continue following with painting worker annually in December as scheduled. I did forward a copy of most current blood work results . [facility] Other 04-04-2022 Evaluation note* Encounter Date Diagnosis Assessment Notes Treatment Notes Treatment Clinical Notes Sep, PMR (polymyalgia rheumatica) (ICD-10 - M35.3) Sep, Hypertension (ICD-10 - I10) [facility] Other 02-24-2022 Evaluation note* Encounter Date Diagnosis [...] if needed. We will continue to montior. [facility] Other 02-16-2022 Evaluation note* Encounter Date Diagnosis Assessment Notes Treatment Notes Treatment Clinical Notes Jul, PMR (polymyalgia rheumatica) (ICD-10 - M35.3) [facility] Other 11-30-2021 Evaluation note* Encounter Date Diagnosis Assessment Notes Treatment Notes Treatment Clinical Notes Apr, PMR (polymyalgia rheumatica) (ICD-10 - M35.3) [facility] Other 11-18-2021 Evaluation note* Encounter Date Diagnosis [...] Hypothyroidism (ICD-10 - E03.9) Blood work ordered. [facility] Other [id number] History general Narrative - Reported* Type Description Date Medical History Anastasia Medical History 2010, 02-15-15-mammogram-negativ e Medical History 01/20122729-ugvbnlniygl-rominw, elmo jiménez in 3 yrs Medical History 03/2017- colonoscopy- normal Medical History f/u with cardiology NO Medical History ECHO 09/2016 Surgical History Appendectomy Surgical History Gallbladder Removal Surgical History Ovarian Cyst Removal Surgical History Coccyx repair Surgical History Cataracts Bilateral Eyes Surgical History thyroidectomy Dr. Forbes 10/14/2019 Hospitalization History Childbirth x5 Hospitalization History See Above [facility] Other Evaluation noteNo InformationNort [employer] Other Evaluation note* Diagnosis Aortic valve stenosis, etiology of cardiac valve disease unspecified Essential hypertension Unspecified essential hypertension Hyperlipidemia, unspecified hyperlipidemia type Never smoked any substance documented in this encounter [facility] Work Phone: Chief Complaint * [...] The prednisone is being tapered gradually * hSy Wolf MD, FACC * LAVONNE VILLATORO is [...] being tapered gradually * Shy Wolf MD, [facility] * LAVONNE VILLATORO is being seen for [...] PMR (polymyalgia rhe umatica) (M35.3) Referral Organization [facility] Referring Provider First Name Suhas Referring Provider Last Name Ugo Referring Provider Specialty Family Prac sukhjinder Referred Organization [facility] Referred Address [address],[place],[address] Referred Provider Specialty Rheumatology Referral Priority Routine [...] disease unspecified Procedures Transthoracic Echo (TTE) Complete MS ECHO TTHRC R-T 2D W/WOM-MODE COMPL SPEC&COLR D Shy Wolf MD [address] [place] [address] 2, [address] [address] Referral ID Status Reason Start Date Expiration Date Visits Requested Visits Authorized Pending Review Perform Procedure 06/19/2023 06/18/2024 1 1 Specialty Diagnoses / Procedures Referred By Alberto jiménez Referred To Contact Cardiology Diagnoses Aortic valve stenosis, etiology of cardiac valve disease unspecified Procedures Follow Up In Cardiology Shy Wolf MD [address] [facility] 2, [address] [address] Shy Wolf MD [address] [place] [address] 2, [address] [address] Referral ID Status Reason Start Date Expiration Date V isits Requested Visits Authorized [id number] Authorized 06/19/2023 06/18/2024 1 1 Additional Source Comments REASON FOR VISIT (unrecogniz ed section and content) Reason Comments Follow-up 6m INFORMATION SOURCE (unrecogn ized section and content) DATE CREATED AUTHOR 03/06/2022 [facility] DATE CREATED AUTHOR AUTHOR'S ORGANIZ ATION 12/25/2022 [facility] DATE CREATED AUTHOR AUTHOR'S ORGANIZ ATION 12/25/2022 [employer] DATE CREATED AUTHOR AUTHOR'S ORGANIZ ATION 03/03/2023 [facility] DATE CREATED AUTHOR AUTHOR'S ORGANIZ ATION 02/17/2024 [facility] DATE CREATED AUTHOR AUTHOR'S ORGANIZ ATION 04/18/2024 [facility] DATE CREATED AUTHOR AUTHOR'S ORGANIZ ATION 07/29/2024 [facility] DATE CREATED AUTHOR AUTHOR'S ORGANIZ ATION 09/19/2024 [facility] Care Teams (unrecognized sec tion and content) Car Runner Relationship Specialty Start Date End Date Suhas [...] BE BASED ON THE PRIMARY CLINICAL RECORDS. [employer] provides no warranty or guarantee of the accuracy or completeness of information in this document.
[2024-10-25 10:57] VITALS: BP 192/84; PULSE 58; TEMP 36.8; O2SAT 97
[2024-10-25 11:25] VITALS: PULSE 63; O2SAT 95
[2024-10-25 11:27] VITALS: BP 211/88; BP 223/88; PULSE 66; O2SAT 99
[2024-10-25] MEDS: 0.9 % SODIUM CHLORIDE 10 ML SYRINGE - SALINE FLUSH INJ (11:27)
[2024-10-25] MEDS: METHYLPREDNISOLONE ACETATE 80 MG/ML VIAL INJ (11:28)
[2024-10-25] MEDS: IOHEXOL 240 MG/ML - 10 ML VIAL 24 MG INJ (11:28)
[2024-10-25] MEDS: BUPIVACAINE HCL 0.25% PF 25 MG/10 ML VIAL INJ (11:28)
[2024-10-25] MEDS: LIDOCAINE HCL 2% 400 MG/20 ML MDV INJ (11:28)
--- NOTE | 2024-10-25 11:30 | W.PM.PROCNOT ---
Date of procedure: 10/25/24 Pre-op diagnosis: Pain due to lumbar stenosis with neurogenic claudication Post-op diagnosis: same as pre-op Procedure: Procedure: Bilateral L4-5 transforaminal epidural steroid injection Medications: Bupivacaine 0.25% 2cc, lidocaine 2% 1cc, depomedrol 80mg The patient was seen and examined in the preoperative holding area.? Informed consent was obtained and placed on the chart.? Patient was brought to the medical procedure unit and placed in the prone position where a timeout was completed verifying the correct patient, procedure site, position, and planned special equipment using sterile aseptic technique.? Under direct fluoroscopic visualization a 25-gauge Quincke tipped spinal needle was advanced at level left L4-5 to the designated neural foramen where contrast dye was injected to show adequate spread.? There was no evidence of vascular or adverse uptake.? Epidural spread was appreciated.? The above-mentioned injectate was then placed in a 1.5 mL aliquot preceded by negative aspiration.? The needle was removed. The same procedure, at the same level, was completed on the opposite side. ? Patient was taken to the postprocedural recovery area and monitored for an appropriate length of time before found suitable for discharge in the accompaniment of a responsible adult. Anesthesia: Local Surgeon: Gloria Weston Pathology: none sent Condition: stable Disposition: no change
== END 2024-10-25 11:35 | disposition home or self-care (01) ==
LOC: SURGOUT 09:49
PROVIDERS: PCP Family Medicine; Visit Provider Anesthesiology
DX: M48.062 Spinal stenosis, lumbar region with neurogenic claudication (principal); M54.50 Low back pain, unspecified
CPT/HCPCS: 64483; J0665; J1010; Q9966

== ENCOUNTER 2024-11-04 10:39 | Outpatient (OUT) | payer MEDICARE, OTHER, SELFPAY ==
--- OUTSIDE RECORDS SUMMARY | 2024-11-04 10:41 | XMS_ITS | Encounter Summary ---
Author Organization [facility] Address [address] [place] [address] Phone Care Team Providers Care Service Observer Name Role Phone Suhas Arizmendi DO Primary Care Provider [phone] Suhas Arizmendi DO Primary Care Provider [phone] Encounter Details Date Type Department Care Team (Late st Contact Info) Description 09/03/2023 Scanned Document [facility] [address] [address] Scanning, Generic Provider Social History Tobacco Use Types Packs/Day Years Used Date Smoking Tobacco: Never Smokeless Tobacco: Never Comments Unknown Sex and Gender Information Value Date Recorded Sex Assigned at Not on file Legal Sex Female 8:57 AM EST Gender Identity Not on file Sexual Orientation Not on file documented as of this encounter Plan of Treatment Upcoming Encounters Date Type Department Care Team (Late st Contact Info) Description 12/21/2024 12:30 PM EDT Appointment [place] [id number] [facility] [address] [place] [address] 01/14/2025 11:00 AM EDT Office Visit [address] [place] [address] Michel Wolf MD [address] [facility] [address] [place] [address] documented as of this encounter Visit Diagnoses Not on filedocumented in this encounter Additional Health Concerns Assessment Noted Time A fall risk assessment has been complete d for the patient 06/19/2023 11:09 AM EST documented as of this encounter Care Teams Service Observer Relationship Specialty Start Date End Date Suhas Arizmendi DO PCP - General 06/09/99 01/29/24 Suhas Arizmendi DO [facility] [address] [place] [id number] PCP - General Family Medicine 01/30/24 documented as of this encounter
--- OUTSIDE RECORDS SUMMARY | 2024-11-04 10:41 | XMS_ITS | Encounter Summary ---
Author Organization [facility] Address [address] [place] [address] Phone Care Team Providers Care Offal Icer Poultry Name Role Phone Suhas Arizmendi DO Primary Care Provider [phone] Suhas Arizmendi DO Primary Care Provider [phone] Encounter Details Date Type Department Care Team (Late st Contact Info) Description 04/19/2019 Orders Only [facility] [address] [place] [address] Conversion, Onbase Social History Tobacco Use Types Packs/Day Years Used Date Smoking Tobacco: Never Assessed Comments Unknown Sex and Gender Information Value Date Recorded Sex Assigned at Not on file Legal Sex Female 8:57 AM EST Gender Identity Not on file Sexual Orientation Not on file documented as of this encounter Plan of Treatment Upcoming Encounters Date Type Department Care Team (Late st Contact Info) Description 12/21/2024 12:30 PM EDT Appointment [facility] [address] [facility] [address] [place] [phone] 01/14/2025 11:00 AM EDT Office Visit [address] [place] [phone] Michel Wolf MD [address], [address] [place] [address] Scheduled Orders Name Type Priority Associated Diagnoses Orde r Schedule OUTSIDE LAB SCAN Lab Ordered: 04/19/2019 documented as of this encounter Visit Diagnoses Not on filedocumented in this encounter Care Teams Offal Icer Poultry Relationship Specialty Start Date End Date Suhas Arizmendi DO PCP - General 06/09/99 01/29/24 Suhas Arizmendi DO [facility] [place] [address] PCP - General Family Medicine 01/30/24 documented as of this encounter
--- OUTSIDE RECORDS SUMMARY | 2024-11-04 10:41 | XMS_ITS | Encounter Summary ---
Author Organization [facility] Address [address] [place] [address] Phone Care Team Providers Care Lieutenant General Name Role Phone Suhas Arizmendi DO Primary Care Provider [phone] Suhas Arizmendi DO Primary Care Provider [phone] Encounter Details Date Type Department Care Team (Late st Contact Info) Description 11/08/2019 Orders Only [facility] [address] [place] [address] Conversion, Onbase Social History Tobacco Use Types [...] Info) Description 12/21/2024 12:30 PM EDT Appointment [facility] [address] [facility] [address] [place] [phone] 01/14/2025 11:00 AM EDT Office Visit [address] [place] [phone] Mcihel Wolf MD [address], [address] [place] [address] Scheduled Orders Name Type Priority Associated Diagnoses Orde r Schedule OUTSIDE LAB SCAN Lab Ordered: 11/08/2019 documented as of this encounter Visit Diagnoses Not on filedocumented in this encounter Care Teams Lieutenant General Relationship Specialty Start Date End Date Suhas Arizmendi DO PCP - General 06/09/99 01/29/24 Suhas Arizmendi DO [facility] [place] [address] PCP - General Family Medicine 01/30/24 documented as of this encounter
--- OUTSIDE RECORDS SUMMARY | 2024-11-04 10:41 | XMS_ITS | Clinical Summary ---
Author Organization [facility] Address [address] [place] [place] [address] Care Team Providers Care Coronary Clinical Specialist Name Role Phone Unavailable Primary Care Provider Unavailabl e Social History Tobacco Use Types Packs/Day Years Used Date Smoking Tobacco: Never Assessed Comments Unknown Sex and Gender Information Value Date Recorded Sex Assigned at Not on file Legal Sex Female 7:21 PM EDT Gender Identity Not on file Sexual Orientation Not on file Last Filed Vital Signs Vital Sign Reading Time Taken Comments Blood Pressure - - Pulse - - Temperature - - Respiratory Rate - - Oxygen Saturation - - Inhaled Oxygen Concentration - - Weight 63.5 kg (140 lb) 04/21/2020 12:00 PM EST Height 157.5 cm (5' 2 ) 04/21/2020 12:00 PM EST Body Mass Index 25.61 04/21/2020 12:00 PM EST Plan of Treatment Not on [place] [address]
--- OUTSIDE RECORDS SUMMARY | 2024-11-04 10:41 | XMS_ITS | Encounter Summary ---
Author Organization [facility] Address [address] [place] [address] Phone Care Team Providers Care Bankruptcy Paralegal Name Role Phone Suhas Arizmendi DO Primary Care Provider [phone] Suhas Arizmendi DO Primary Care Provider [phone] Encounter Details Date Type Department Care Team (Late st Contact Info) Description 12/18/2020 Orders Only [facility] [address] [place] [address] Conversion, Onbase Social History Tobacco Use Types [...] Info) Description 12/21/2024 12:30 PM EDT Appointment [place] [address] [facility] [address] [place] [phone] 01/14/2025 11:00 AM EDT Office Visit [address] [place] [phone] Michel Wolf MD [address], [address] [place], [place] [phone] Scheduled Orders Name Type Priority Associated Diagnoses Orde r Schedule OUTSIDE LAB SCAN Lab Ordered: 12/18/2020 OUTSIDE LAB SCAN Lab Ordered: 12/18/2020 documented as of this encounter Visit Diagnoses Not on filedocumented in this encounter Care Teams Bankruptcy Paralegal Relationship Specialty Start Date End Date Suhas Arizmendi DO PCP - General 06/09/99 01/29/24 Suhas Arizmendi DO [address] [place] [address] PCP - General Family Medicine 01/30/24 documented as of this encounter
--- OUTSIDE RECORDS SUMMARY | 2024-11-04 10:41 | XMS_ITS | Clinical Summary ---
Author Organization [facility] Address [address] [place] [address] Care Team Providers Care Sap Bw Bi Developer Name Role Phone Suhas Arizmendi DO Unavailable Suhas Arizmendi DO Primary Care Provider [phone] Allergies Active Allergy Reactions Criticality Noted Date Comments Divalproex Sodium Intolerance 03/29/2005 Phenytoin Sodium Extended Rash 03/29/2005 Medications NORVASC 5 MG TAB Take one(1) tablet daily. 0 03/29/2005 Active DIOVAN HCT 160 MG-12.5 MG TAB twice a day 0 03/29/2005 Ac tive METOPROLOL SR 50 MG 24 HR TAB once a day 0 03/29/2005 Ac tive SYNTHROID 100 MCG TAB Take one(1) tablet daily. 0 03/29/2005 Active CALCIUM ANTACID 500 MG CHEWABLE TAB Calcium with D 600mg once a day 0 03/29/2005 Active VIT [id number] ACID-MAG OX 100 UNIT-2.05 MG TAB Vit e 400 IU every other day 0 03/29/2005 Active ASPIRIN 81 MG TAB once a day 0 03/29/2005 Active Family History Medical History Relation Comments None Mother no family histor y of breast cancer Relation Status Comments Mother Social History Tobacco Use Types Packs/Day Years Used Date Smoking Tobacco: Never Assessed Comments Unknown Sex and Gender Information Value Date Recorded Sex Assigned at Not on file Legal Sex Female 7:32 AM EST Gender Identity Not on file Sexual Orientation Not on file Plan of Treatment Health Maintenance Due Date Last Done Comments Anxiety Screening 1953 Depression Screening 1953 DTaP,Tdap,Td Vaccine (1 - Tdap) 08/11/1955 Diabetes Screening 1981 Pneumococcal Vaccine: 50+ (1 of 1 - PCV) 1986 Shingrix Vaccine (1 of 2) 1986 Bone Density Screening 2001 RSV Vaccine (1 - 1-dose 75+ series) 08/11/2011 Covid-19 Vaccine (1 - season) 2024 Advance Directive Discussion 06/09/2024 Influenza Vaccine (Season Ended) 2025 Insurance MEDICARE [employer]RO[employer] Care Teams Sap Bw Bi Developer Relationship Specialty Start Date End Date Suhas Arizmendi DO [address] [place] [address] PCP - General Family Medicine 07/23/23 Suhas Arizmendi DO [address] [place] [address] Referring Family Medicine 07/23/23
--- OUTSIDE RECORDS SUMMARY | 2024-11-04 10:41 | XMS_ITS | Encounter Summary ---
Author Organization [facility] Address [address] [place] [address] Phone Care Team Providers Care Medicare Insurance Specialist Name Role Phone Suhas Arizmendi DO Primary Care Provider [phone] Suhas Arizmendi DO Primary Care Provider [phone] Encounter Details Date Type Department Care Team (Late st Contact Info) Description 02/26/2023 Scanned Document [facility] [address] [place] [address] Conversion, Onbase Social History Tobacco Use Types [...] Info) Description 12/21/2024 12:30 PM EDT Appointment [facility] [address] [facility] [address] [place] [phone] 01/14/2025 11:00 AM EDT Office Visit [address] [place] [phone] Michel Wolf MD [address] [place], [place] [phone] documented as of this encounter Procedures Procedure Name Priority Date/Time Associated Diagnosis Comments ECHOCARDIOGRAM 02/26/2023 documented in this encounter Results * ECHOCARDIOGRAM (02/26/2023) Narrative 02/26/2023 Ordered by an unspecified provider. us Onbase Conversion CV ECHO PROCEDURES Final Resul t documented in this encounter Visit Diagnoses Not on filedocumented in this encounter Care Teams Medicare Insurance Specialist Relationship Specialty Start Date End Date Suhas Arizmendi DO PCP - General 06/09/99 01/29/24 Suhas Arizmendi DO [address] [place] [address] PCP - General Family Medicine 01/30/24 documented as of this encounter
--- OUTSIDE RECORDS SUMMARY | 2024-11-04 10:42 | XMS_ITS | Clinical Summary ---
Author Organization [facility] Address [address] [place] [address] Phone Care Team Providers Care Machine Feller Name Role Phone Ugo Suhas Dalton TYLER Primary Care Provider [phone] Allergies Active Allergy Reactions Criticality Noted Date Comments Alendronate Unknown 06/04/2023 Amoxicillin Hives High 06/04/2023 Hydrocodone GI Upset Medium 06/19/2023 Phenytoin Rash Low 06/04/2023 Valproic Acid Unknown 06/04/2023 Medications multivit-min/fe rrous fumarate (MULTI VITAMIN ORAL) Take 1 tablet by mouth once daily. Active amLODIPine (Norvasc) 10 mg tablet Take 1 tablet (10 mg) by mouth once daily. 2 Active calcium carbonate 600 mg calcium (1,500 mg) tablet Take 1 tablet (1,500 mg) by mouth once daily. Active predniSONE (Deltasone) 5 mg tablet Take 1 tablet (5 mg) by mouth once daily. Alternating 2.5 tab 2 Active losartan-hydroc hlorothiazide (Hyzaar) 100-12.5 mg tablet Take 1 tablet by mouth once daily. 2 Active carvedilol (Coreg) 6.25 mg tablet Take 1 tablet (6.25 mg) by mouth 2 times daily (morning and late afternoon). 2 Active omega-3 (Fish Oil) 60-90-500 mg capsule Take 1 capsule (500 mg) by mouth once daily. Active aspirin 81 mg EC tablet Take 1 tablet (81 mg) by mouth. Active levothyroxine (Synthroid, Levoxyl) 100 mcg tablet Take 1 tablet (100 mcg) by mouth once daily. 2 Active oxycodone HCl/acetaminoph en (OXYCODONE-ACET AMINOPHEN ORAL) Take by mouth. 4 Active Active Problems Problem Noted Date Diagnosed Date BMI 26.0-26.9,adult 04/16/2024 Never smoked any substance 06/19/2023 Aortic stenosis 06/04/2023 Carotid bruit 06/04/2023 Essential hypertension 06/04/2023 Hyperlipidemia 06/04/2023 Hypothyroidism 06/04/2023 Murmur, cardiac 06/04/2023 PMR (polymyalgia rheumatica) (Multi) 06/04/2023 Immunizations Immunization Administration Dates Next Due Flu vaccine, trivalent, pres ervative free, HIGH-DOSE, age 65y+ (Fluzone) 03/09/2019 Influenza Whole 03/09/2014 Influenza, Seasonal, Quadriv alent, Adjuvanted 03/21/2022 Influenza, Unspecified 03/09/2018,2016,03/09/2016,03/09,03/09/2013,06/09/2011,06/09/2010 ,06/09/2009 Influenza, injectable, quadrivalent 04/07/2015 Influenza, trivalent, adjuvanted 020,03/16/2018,03/28/2017,04/01 Moderna COVID-19 vaccine, bi valent, blue cap/uribe label *Check age/dose* 04/17/2022 Novel [id number], preservative-free 05/30/2009 Pneumococcal conjugate vacci ne, 13-valent (PREVNAR 13) 03/09/2016 Pneumococcal polysaccharide vaccine, 23-valent, age 2 years and older (PNEUMOVAX 23) 04/28/2020,06/09/2006 Zoster vaccine, recombinant, adult (SHINGRIX) 05/04/2019,02/04/2019 Family History Medical History Relation Name Comments CABG Father angina pectoris Father Aortic stenosis Sister Relation Name Status Comments Father Sister Social History Tobacco Use Types Packs/Day Years Used Date Smoking Tobacco: Never Smokeless Tobacco: Never Tobacco Cessation:Counseling Given: Not Answered Alcohol Use Standard Drinks/Week Comments Yes 1 (1 standard drink = 0.6 oz pur e alcohol) Comments Unknown Sex and Gender Information Value Date Recorded Sex Assigned at Not on file Legal Sex Female 8:57 AM EST Gender Identity Not on file Sexual Orientation Not on file Last Filed Vital Signs Vital Sign Reading Time Taken Comments Blood Pressure 120/62 04/16/2024 1:16 PM EST Pulse 62 04/16/2024 1:16 PM EST Temperature - - Respiratory Rate - - Oxygen Saturation - - Inhaled Oxygen Concentration - - Weight 66.1 kg (145 lb 12.8 oz) 04/16/2024 1:16 PM EST Height 157.5 cm (5' 2 ) 04/16/2024 1:16 PM EST Body Mass Index 26.67 04/16/2024 1:16 PM EST Plan of Treatment Upcoming Encounters Date Type Department Care Team (Late st Contact Info) Description 12/21/2024 12:30 PM EDT Appointment [facility] [address] [facility] [address] [place] [phone] 01/14/2025 11:00 AM EDT Office Visit [address] [place] [address] Michel Wolf MD [address] [facility] [address] [place] [address] Health Maintenance Due Date Last Done Comments Lipid Panel 1936 TSH Level 1936 Hepatitis A Vaccines (1 of 2 - Risk 2-dose series) 08/11/1955 Hepatitis B Vaccines (1 of 3 - Risk 3-dose series) 1996 Medicare Annual Wellness Visit (AWV) 04/29/2021 04/28/2020 Bone Density Scan 02/19/2024 02/18/2022 COVID-19 Vaccine ( season) 2024 04/07/2024, 04/02/2023, 04/17/2022, Additional history exists DTaP/Tdap/Td Vaccines (2 - Td or Tdap) 05/12/2028 05/12/2018 Zoster Vaccines Completed 05/04/2019, 01/08, 10/19/2007 Pneumococcal Vaccine Completed 04/28/2020, 05/23/2016, 03/09/2016, Additional history exists RSV High Risk: (Elderly (60+) or Population) Completed 06/07/2023 Influenza Vaccine Completed 04/07/2024, , 03/21/2022, Additional history exists HIB Vaccines Aged Out No longer eligi ble based on patient's age to complete this topic HPV Vaccines Aged Out No longer eligi ble based on patient's age to complete this topic IPV Vaccines Aged Out No longer eligi ble based on patient's age to complete this topic Meningococcal Vaccine Aged Out No nory miya eligible based on patient's age to complete this topic Rotavirus Vaccines Aged Out No longer eligible based on patient's age to complete this topic Insurance Member Subscriber Plan / Payer (Ef fective 2001-Present) Name:Orin Villatoroara Member ID:[id number] Relation to Subscriber:Self Name:Marcy Villatoro Subscriber ID:[id number] Payer ID:Not on file Group ID:Not on file Type:Not on file Address: [address] Care Teams Machine Feller Relationship Specialty Start Date End Date Suhas Arizmendi DO [address] [place] [address] PCP - General Family Medicine 01/30/24
--- NOTE | 2024-11-04 11:33 | P.CN_ITS ---
Consult Note: HPI Data of Consult Patient: known to practice within the last 3 years Requesting Physician: Norma Jimenez NP Primary Care Provider: Suhas Arizmendi, DO Consult Narrative Reason for consult: back pain Narrative: 89yof who presents for assessment. chronic neck and low back pain. longstanding hx of pain secondary to degenerative changes, prior cervical and lumbar MRI consistent with multilevel stenosis and spondylosis as well as DDD. Pain today 8-9/10 in whole body, aching as well as low back and BLE pain/weakness. Pain increasing with all activity, pain improved with sitting and a hot shower. pt has a hx of PMR as well. denies falls or injury since last visit. continues to engage in HEP >6 weeks without improvement. recent bilateral SIJ injection providing 50% improvement in SIJ pain per pt. recent bilateral L4/5 TFESI >50% improvement for 1 week no ongoing relief. since last visit pt has further thought about [employer] spinal cord stimulator and is interested in proceeding with the trial. cc:: CC: Norma Jimenez NP Review of Systems ROS Status of ROS 10 or more systems reviewed and unremark able except as noted in history and below Musculoskeletal Reports: back pain and extremity pain PFSH PFSH Medical History Polymyalgia rheumatica ?M35.3 - Polymyalgia rheumatica (ICD-10) Hyperthyroidism ?E05.90 - Thyrotoxicosis, unspecified without thyrotoxic crisis or storm (ICD-10) Heart murmur ?R01.1 - Cardiac murmur, unspecified (ICD-10) HTN (hypertension) ?I10 - Essential (primary) hypertension (ICD-10) Surgical History 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 - Postprocedural hypothyroidism (ICD-10) Hx of cholecystectomy ?Z90.49 - Acquired absence of other specified parts of digestive tract (ICD- 10) History of ovarian cystectomy ?Z98.890 - Other specified postprocedural states (ICD-10) ?Z87.42 - Personal history of other diseases of the female genital tract (ICD-10) History of appendectomy ?Z90.49 - Acquired absence of other specified parts of digestive tract (ICD- 10) Social History Little interest or pleasure in doing things: not at all Feeling down, depressed, or hopeless: not at all Meds Home Medications and Allergies Home Medications ?Medication ?Instructions ?Recorded ?Confirmed ?Type amlodipine 10 mg tablet (Norvasc) 10 mg PO DAILY 08/2410/25/24 History aspirin 81 mg capsule 81 mg PO DAILY 08/25/2310/07 History carvedilol 6.25 mg tablet 6.25 mg PO Q12H 08/25/23 History levothyroxine 100 mcg tablet 100 mcg PO DAILY 08/25/23 10/25/24 History losartan 100 1 tab PO DAILY 08/25/2310/07 History mg-hydrochlorothiazide 12.5 mg tablet meloxicam 7.5 mg tablet mg 10/14/24 History prednisone 1 mg tablet mg 10/14/24 History lorazepam 0.5 mg tablet mg 10/25/24 History Allergies Allergy/AdvReac Type Severity Reaction Status Date / Time amoxicillin Allergy Mild Rash Verified 10/25/24 10:48 divalproex sodium (From Allergy Unknown Unknown Verified 10/25/24 10:48 Depakote) hydrocodone Allergy Unknown Rash Verified 10/25/24 10:48 phenytoin (From Dilantin) Allergy Unknown Unknown Verified 10/25/24 10:48 alendronate sodium (From AdvReac eye pain Verified 10/25/24 10:48 Fosamax) Exam Constitutional Documenting provider has reviewed patient's vital signs: yes Common normals: no apparent distress, oriented x3, healthy appearing, alert and well nourished General appearance: cooperative [facility] Common normals: normocephalic, hearing grossly normal bilaterally and moist oral mucous membranes Head and scalp: normocephalic Eye Common normals: PERRL Pupil: PERRL Neck & C-Spine Common normals: full ROM General: normal visual inspection Chest Common normals: inspection of chest normal Respiratory Common normals: normal respiratory effort, no retractions and no use of a ccessory muscles Back & Pelvis Lumbar spine/lower back: pain with ROM, lumbar spinal tenderness, straight leg raise positive right and straight leg raise positive left Sacroiliac joints: SI joints normal Other: decreased sensation bilateral L4,5,S1 strength 4/5 in BLE increased pain with standing, walking, activity. improves with forward flexion and sitting. Extremity Common normals: normal to inspection and full ROM Neuro Common normals: oriented x3 Sensorium/orientation: alert Gait (neuro): antalgic Psych Common normals: mental status grossly normal, thought process normal, cooperative, affect normal, speech normal and activity/motor behavior normal Speech: normal speech Thought process: normal thought process Results Additional Findings Additional findings: If on a controlled substance or opioids, I have checked an [place] report on this patient and there are no aberrancies noted in the prescribing history.??If on a controlled substance or opioid a drug screen was completed and reviewed within the last year, and if there has not been a drug screen completed we ordered one today to monitor higher risk, state monitored pain medication use. As part of providing excellent, safe, comprehensive care, the following was completed at our patient's visit: 1. A medication reconciliation and review to ensure accurate knowledge of cur rent/active medications, including asking our patients to inform us about any [id number] medications or herbal remedies/nutritional supplements/alternative remedies. 2. A review to specifically ensure our patients have had annual screening for screening for depression, screening for tobacco use, and screening for unhealthy alcohol use. For concerning screenings had a discussion with the patient, provided patient education, and recommended follow-up with primary care provider when appropriate. If patient noted with a risk of falling, they received education on strength, gait, and balance training to prevent future risk of falling. Portions of this note may have been carried over from the previous visit and updated as appropriate. Please note this office utilizes paper charting in addition to the electronic medical record. A list of current medications, vitals, and PMH is available there as the clinical staff outside of myself do not have access to [employer] charting during the clinic day operations. As part of providing quality comprehensive care the current medications, vitals, and PMH were reviewed in the paper chart. Assessment and Plan Assessment and Plan (1) Lumbar stenosis with neurogenic claudication: Assessment and Plan: WIN 32% moderate to severe pain impacting ADLs, sitting, standing, walking, sleeping, social life and travel (2) Sacroiliitis: (3) Lumbar spondylosis: Plan 89 year old female with chronic extensive low back pain and BLE pain secondary to lumbar ddd, lumbar stenosis, and lumbar spondylosis. pt has failed > 6 weeks of PT and provider guided HEP, heat, ice, tylenol, NSAIDs. she is not interested in a NS consultation or surgical intervention. pt has failed to benefit from lumbar MBBs and TFESIs, she would like to proceed with 2 lead spinal cord stimulator trial under fluoroscopy with MAC sedation for chronic low back pain secondary to lumbar stenosis with NC. start gabapentin 100mg TID, risks vs benefits reviewed. continue HEP as tolerated. pt to complete psychiatric evaluation. f/u in office for lead removal.
== END 2024-11-04 10:40 | disposition home or self-care (01) ==
PROVIDERS: PCP Family Medicine; Visit Provider Nurse Practitioner
DX: M48.062 Spinal stenosis, lumbar region with neurogenic claudication (principal); M46.1 Sacroiliitis, not elsewhere classified; M47.816 Spondylosis without myelopathy or radiculopathy, lumbar region
CPT/HCPCS: G0463

== ENCOUNTER 2024-11-29 11:06 | Outpatient (OUT) | payer MEDICARE, OTHER, SELFPAY ==
--- NOTE | 2024-11-29 12:17 | PM.PRESUREVA ---
History of Present Illness History of Present Illness Chief complaint: SPINAL CORD STIMULATOR TRIAL Narrative: Patient presents for presurgical testing. The patient reports a long history of chronic joint pain, neck pain, and low back pain. The patient states she has had multiple spine injections with short acting relief. She is currently taking Tylenol and gabapentin to help with her discomfort. She states her pain radiates down both legs and she has intermittent tingling in bilateral feet. Review of Systems ROS Narrative REVIEW OF SYSTEMS: Negative except as stated in HPI, ten or more systems reviewed. Constitutional: No fever, chills, weakness ENT: No sore throat or epistaxis Cardiovascular: No edema, chest pain, palpitations, or activity intolerance Respiratory: No shortness of breath, cough, or wheezing Gastrointestinal: No abdominal pain, constipation, diarrhea, or vomiting Genitourinary: No dysuria or hematuria Neurological: No numbness or headache Psychiatric: No mood changes [facility] Medical History (Updated 11/29/24 @ 12:14 by Maricruz Huynh NP) Lumbar stenosis with neurogenic claudication ?M48.062 - Spinal stenosis, lumbar region with neurogenic claudication (ICD-10) Back pain ?M54.9 - Dorsalgia, unspecified (ICD-10) Shoulder pain ?M25.519 - Pain in unspecified shoulder (ICD-10) Seizures (1987) ?R56.9 - Unspecified convulsions (ICD-10) Heartburn ?R12 - Heartburn (ICD-10) Cataract ?H26.9 - Unspecified cataract (ICD-10) Hepatic lesion ?K76.9 - Liver disease, unspecified (ICD-10) Insomnia ?G47.00 - Insomnia, unspecified (ICD-10) Lung density on x-ray ?J98.4 - Other disorders of lung (ICD-10) Multinodular thyroid ?E04.2 - Nontoxic multinodular goiter (ICD-10) Hypothyroidism (acquired) ?E03.9 - Hypothyroidism, unspecified (ICD-10) Hyperlipidemia ?E78.5 - Hyperlipidemia, unspecified (ICD-10) Aortic stenosis ?I35.0 - Nonrheumatic aortic (valve) stenosis (ICD-10) Polymyalgia rheumatica ?M35.3 - Polymyalgia rheumatica (ICD-10) Hyperthyroidism ?E05.90 - Thyrotoxicosis, unspecified without thyrotoxic crisis or storm (ICD-10) Heart murmur ?R01.1 - Cardiac murmur, unspecified (ICD-10) HTN (hypertension) ?I10 - Essential (primary) hypertension (ICD-10) Surgical History (Updated 11/29/24 @ 11:44 by Maricruz Huynh NP) S/P epidural steroid injection ?Z92.241 - Personal history of systemic steroid therapy (ICD-10) History of cataract extraction with lens replacement H/O excision of mass ?Z98.890 - Other specified postprocedural states (ICD-10) H/O colonoscopy ?Z98.890 - Other specified postprocedural states (ICD-10) 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 - Postprocedural hypothyroidism (ICD-10) Hx of cholecystectomy ?Z90.49 - Acquired absence of other specified parts of digestive tract (ICD-10) History of ovarian cystectomy ?Z98.890 - Other specified postprocedural states (ICD-10) ?Z87.42 - Personal history of other diseases of the female genital tract (ICD-10) History of appendectomy ?Z90.49 - Acquired absence of other specified parts of digestive tract (ICD-10) Family History (Updated 11/29/24 @ 11:44 by Maricruz Huynh NP) Other Family history of DVT Family history of aneurysm Family history of cancer Family history of diabetes mellitus Family history of heart disease Social History (Updated 11/29/24 @ 11:34 by Maricruz Huynh NP) Within the past year, how often did you have a drink containing alcohol: monthly or less Smoking status: Never smoker Non-prescribed substance use: denies use Highest level of school completed/degree received: high school graduate Little interest or pleasure in doing things: not at all Feeling down, depressed, or hopeless: not at all Meds Home Medications and Allergies Home Medications ?Medication ?Instructions ?Recorded ?Confirmed ?Type aspirin 81 mg capsule 81 mg PO DAILY 08/25/23 11/29/24 History carvedilol 6.25 mg tablet 6.25 mg PO Q12H 08/25/23 11/29/24 History levothyroxine 100 mcg tablet 100 mcg PO DAILY 08/25/23 11/29/24 History lorazepam 0.5 mg tablet 0.5 mg PO Q8H PRN anxiety 10/25/24 11/29/24 History gabapentin 100 mg capsule 100 mg PO TID #90 caps 11/04/24 11/29/24 Rx acetaminophen 650 mg 1,300 mg PO Q12H PRN pain 11/29/24 11/29/24 History tablet,extended release amlodipine 5 mg tablet 5 mg PO DAILY 11/29/24 11/29/24 History losartan 100 1 tab PO DAILY 11/29/24 11/29/24 History mg-hydrochlorothiazide 25 mg tablet multivitamin (Daily Multi-Vitamin 1 tab PO DAILY 11/29/24 11/29/24 History tablet) prednisone 10 mg tablet 10 mg PO DAILY 11/29/24 11/29/24 History Allergies Allergy/AdvReac Type Severity Reaction Status Date / Time amoxicillin Allergy Mild Rash Verified 10/25/24 10:48 divalproex sodium (From Allergy Unknown hair loss Verified 11/29/24 11:22 Depakote) hydrocodone Allergy Unknown Rash Verified 10/25/24 10:48 phenytoin (From Dilantin) Allergy Unknown Rash Verified 11/29/24 11:22 alendronate sodium (From AdvReac eye pain Verified 10/25/24 10:48 Fosamax) Exam Narrative Exam Narrative: Constitutional: Awake, alert, appears younger than stated age, comfortable, well-appearing, nontoxic, interactive, vital signs as charted Head: Normocephalic, atraumatic Neck: Supple, normal appearance, normal range of motion, no meningeal signs, no lymphadenopathy Respiratory: No respiratory distress, breath sounds clear Cardiovascular: Regular rate and rhythm, prominent systolic murmur noted Abdomen: Nontender, normal bowel sounds, soft Musculoskeletal: No swelling or edema, bilateral lower lumbar paraspinal muscle tenderness, pain with lumbar range of motion Skin: No rashes or induration, no lesions, only visible skin inspected Neuro: No neurological deficits, normal sensation Psychiatric: Oriented ?3, normal affect Assessment and Plan Assessment and Plan (1) Lumbar stenosis with neurogenic claudication: (2) Back pain: Plan Lumbar spinal cord stimulator trial scheduled with Dr. Cheney December 13, 2024.
[2024-11-29 12:22] LABS: Anion Gap 11.4; BUN Creatinine Ratio 41.5; Calcium 9.2 mg/dL (8.5-10.1); Carbon Dioxide 30.7 mmol/L (21.0-32.0); Chloride 107 mmol/L (98-107); Estimated GFR (African America >60 (>=60 mL/min/1.73m^2); Estimated GFR (Non-African Ame >60 (>=60 mL/min/1.73m^2); Glucose 108 mg/dL (74-106); Potassium 4.1 mmol/L (3.5-5.1); Sodium 145 mmol/L (136-145)
== END 2024-11-29 11:07 | disposition home or self-care (01) ==
LOC: PST 11:07
PROVIDERS: PCP Family Medicine; Visit Provider Anesthesiology
DX: Z01.812 Encounter for preprocedural laboratory examination (principal); Z01.818 Encounter for other preprocedural examination; M48.062 Spinal stenosis, lumbar region with neurogenic claudication
CPT/HCPCS: 80048; G0463

== ENCOUNTER 2025-02-08 09:34 | Outpatient (OUT) | payer MEDICARE, OTHER, SELFPAY ==
--- OUTSIDE RECORDS SUMMARY | 2025-02-08 09:48 | XMS_ITS | CCD ---
Author Organization [facility] Care Team Providers Care Dress Operator Name Role Phone Suhas Garrett Unavailable Suhas Garrett Unavailable Unavailable Unavailable MAYO CARBAJAL Consulting Unavailable UGO, DR BAIRD Primary Care Unavailable WALT VELIZ Attending Unavailable WALT VELIZ Admitting Unavailable Ugo, Dr. Suhas Liang Primary Care Unavaila ble Wolf, Dr. Shy Pleitez Referring Radha vailable Wolf, Dr. Shy Pleitez Attending Radha vailable Wolf, Dr. Shy Pleitez Attending Radha vailable Kunadan, Dr. Suhas Liang Primary Care Unavaila ble Wolf, Dr. Shy Pleitez Referring Radha vailable Ugo, Dr. Suhas Liang Primary Care Unavaila ble WOLF, SHY PLEITEZ Attending Unavail able Suhas Garrett DO Primary Care Provider Suhas Garrtet DO Primary Care Provider Suhas Garrett Primary Care Unavailable Suhas Garrett Admitting Unavailable Suhas Garrett Attending Unavailable Suhas Garrett Attending Unavailable Suhas Garrett Primary Care Unavailable Suhas Garrett Admitting Unavailable Suhas Garrett Attending Unavailable Suhas Garrett Primary Care Unavailable Suhas Garrett Admitting Unavailable Suhas Garrett Attending Unavailable Suhas Garrett Primary Care Unavailable Suhas Garrett Admitting Unavailable Giedraitis , Andrius Dain Attending Unavailable Giedraitis , Andrius Vytgeorge Attending Unavailable Giborisitis , Andrius Vytautas Attending Unavailable Gieditis , Andrius Vytautas Attending Unavailable Giedraitis Gloria Attending Unavailable Suhas Garrett DO Primary Care Provider [phone] SHY WOLF Referring Unavailable SUHAS GARRETT Primary Care Unavailable SHY WOLF Referring Unavailable SUHAS GARRETT Primary Care Unavailable SHY WOLF Attending Unavailable SHY WOLF Referring Unavailable SUHAS GARRETT Primary Care Unavailable SHY WOLF Attending Unavailable SHY WOLF Referring Unavailable SUHAS GARRETT Primary Care Unavailable REUBEN BURNS Attending Unavailable SUHAS GARRETT Primary Care Unavailable Allergies Allergy Classification Reported Allergen(s) Allergy Type Date of Onset Reaction(s) Facility (20 sources) Alendronate; Translations: [Fosamax] Drug Allergy 3 Unknown, Other [facility] Repository (20 sources) Amoxicillin; Translations: [amoxicillin] Drug Allergy [address] [facility] [employer] Other (20 sources) Phenytoin; Translations: [Dilantin CAPS] Drug Allergy 3 Rash [employer] [facility] [employer] Other (20 sources) Valproate; Translations: [Depakote ER TB24] Drug Allergy Unknown [employer] [facility] [employer] Other (1 source) Alendronate Drug Allergy [facility] Repository (1 source) Amoxicillin Drug Allergy [facility] Repository (1 source) Phenytoin Drug Allergy [facility] Repository (1 source) Valproate Drug Allergy [facility] Repository (20 sources) Acetaminophen / HYDROcodone Drug Allergy elevated liver enzymes [facility] [employer] Other (6 sources) Alendronate Drug Allergy 3 Unknown, Other [facility] (8 sources) HYDROcodone; Translations: [HYDROCODONE] Drug Allergy 4 GI Upset [facility] Work Phone: (8 sources) Valproate; Translations: [VALPROIC ACID] Drug Allergy 3 Unknown [facility] Work Phone: (1 source) Acetaminophen Drug Allergy 4 [facility] Repository (1 source) Alendronate Drug Allergy 4 [facility] Repository (1 source) Amoxicillin Drug Allergy 4 [facility] Repository (1 source) HYDROcodone Drug Allergy 4 [facility] Repository (1 source) Phenytoin Drug Allergy 4 [facility] Repository (1 source) Valproate Drug Allergy 4 [facility] Repository (5 sources) Valproate; Translations: [DIVALPROEX] Drug Allergy 5 [facility] Work Phone: Medications Current Medications Medication Drug Class(es) Dates Sig (Normalized) Sig (Original) 8 hr acetaminophen 650 mg extended release oral tablet (3 sources) take 1 tablet by mouth every eight hours as needed acetaminophen (Tylenol 8 HOUR) 650 mg ER tablet Take 1 tablet (650 mg) by mouth every 8 hours if needed for mild pain (1 - 3). Do not crush, chew, or split. Active acetaminophen 325 mg / HYDROcodone bitartrate 5 mg oral tablet (3 sources) Opioid Agonist take 1 tablet by mouth every six hours HYDROcodone-Acetamin ophen 5-325 MG 1 tablet as needed Orally every 6 hrs Active aspirin 81 mg delayed release oral tablet (20 sources) Platelet Aggregation Inhibitor, Nonsteroidal Anti-inflammatory Drug take 1 tablet by mouth three times weekly aspirin 81 mg EC tablet Take 1 tablet (81 mg) by mouth 3 (three) times a week. Active aspirin 81 mg EC tablet Take 1 tablet (81 mg) by mouth. Active take 1 tablet by mouth every wee k Aspirin 81 MG 1 tablet Orally 3 days per week Active calcium carbonate 1500 mg / cholecalciferol [...] Start: 06-25-2017 take 1 tablet by mouth twice daily carvedilol (Coreg) 6.25 mg tablet Take 1 tablet (6.25 mg) by mouth 2 times daily (morning and late afternoon). 06/25/2021 Active Centrum (20 sources) Centrum as directed Orally Active gabapentin 100 mg oral capsule (3 sources) Anti-epileptic Agent take 1 capsule by mouth three times daily gabapentin (Neurontin) 100 mg capsule Take 1 capsule (100 mg) by mouth 3 times a day. Active hydroCHLOROthiazide 12.5 mg / losartan potassium 100 mg oral tablet (20 sources) Thiazide Diuretic, Angiotensin 2 Receptor Awa Start: 04-25-2017 take 1 tablet by mouth once daily losartan-hydroc hlorothiazide (Hyzaar) 100-12.5 mg tablet Take 1 tablet by mouth once daily. 09/10/2021 Active ibuprofen 600 mg oral tablet (20 [...] tablet (100 mcg) by mouth once daily. 06/25/2021 Active Synthroid 100 MC G 1 tablet every morning on an empty stomach Orally Once a day for 90 day(s) Active LORazepam 0.5 mg oral tablet (3 sources) Benzodiazepine take 1 tablet by mouth every six hours as needed LORazepam (Ativan) 0.5 mg tablet Take 1 tablet (0.5 mg) by mouth every 6 hours if needed for anxiety. Active multivit-min/ferrous fumarate (MULTI VITAMIN ORAL) (6 sources) take 1 tablet by mouth once daily multivit-min/ferrous fumarate (MULTI VITAMIN ORAL) Take 1 tablet by mouth once daily. Active take 1 tablet by mouth once [place] y multivit-min/ferrous fumarate (MULTI VITAMIN ORAL) Take 1 tablet by mouth once daily. 0 Active [place] 3 1000 MG (20 sources) take 1 capsule by mouth once daily [place] 3 1000 MG 1 capsule with a meal Orally Once a day Active predniSONE 10 mg oral tablet (20 sources) Start: 12-09-2024 take 1 tablet by mouth once daily predniSONE (Deltasone) 10 mg tablet Take 1 tablet (10 mg) by mouth once daily. 12/09/2024 Active Start: 07-05-2023 take 2 tablets by mo [facility] once daily predniSONE 10 MG 2 tablets [...] day with 2.5mg Apr, Active Start: 02-22-2020 End: 01-14-2025 predniSONE (Deltasone) 5 mg tablet Take 1 tablet (5 mg) by mouth once daily. Alternating 2.5 tab 11/02/2021 01/14/2025 Discontinued (Dose adjustment) Start: 02-22-2020 take 1 tablet by barb [...] Drug Class(es) Dates Sig (Normalized) Sig (Original) amLODIPine 10 mg oral tablet (20 sources) Dihydropyridine Calcium Channel Awa Start: 06-03-2017 take 1 tablet by mouth every twenty-four hours Norvasc 5 MG 1 tablet Orally Once a day for 90 day(s) May, Active Start: 06-03-2017 End: 12-07-2024 take 1 tablet by mouth once daily amLODIPine (Norvasc) 10 mg tablet Take 1 tablet (10 mg) by mouth once daily. 12/13/2021 12/07/2024 Discontinued (Dose adjustment) calcium carbonate 1500 mg oral tablet (11 sources) End: 12-07-2024 take 1 tablet by mouth once daily calcium carbonate 600 mg calcium (1,500 mg) tablet Take 1 tablet (1,500 mg) by mouth once daily. 12/07/2024 Discontinued (Therapy completed) Calcium 600 MG T ABS TAKE 1 TABLET DAILY. Quantity: 0 Refills: 0 Ordered: 13-Dec-2021 DO Active docosahexaenoic acid 120 mg / eicosapentaenoic acid 180 mg oral capsule (3 sources) take 1 capsule by mouth once daily [place]-3 Fish Oil 1000 MG Oral Capsule TAKE 1 CAPSULES BY MOUTH DAILY Quantity: 360 Refills: 0 Ordered: 24-Dec-2022 DO Active Fish Oils (4 sources) End: 12-07-2024 take 1 capsule by mouth once daily omega-3 (Fish Oil) 60-90-500 mg capsule Take 1 capsule (500 mg) by mouth once daily. 12/07/2024 Discontinued (Therapy completed) take 1 capsule by mouth once andra ly omega-3 (Fish Oil) 60-90-500 mg capsule Take 1 capsule (500 mg) by mouth once daily. Active take 1 capsule by mouth once andra ly omega-3 (Fish Oil) 60-90-500 mg capsule Take 1 capsule (500 mg) by mouth once daily. 0 Active lidocaine 0.05 mg/mg medicated patch (9 sources) Antiarrhythmic, Amide Local Anesthetic Lidocaine 5 % 1 patch remove after 12 hours Externally Once a day Not-Taking melatonin 5 mg oral tablet (20 sources) Start: 022 take 1 tablet by mouth every twenty-four hours Melatonin 5 MG 1 tablet in the evening Orally Once a day Sep, Not-Taking/PRN methylPREDNISolone (20 sources) Corticosteroid Start: 014 SOLU-MEDROL 41 - 125 mg Jan, 125 mg Multi Vitamin Oral Tablet (7 sources) take 1 tablet by mouth once daily Multi Vitamin Oral Tablet TAKE 1 TABLET DAILY. Quantity: 0 Refills: 0 Ordered: 13-Dec-2021 DO Active [place] 3 500 CAPS (4 sources) [place] 3 500 CAPS TAKE 1 CAPSULE Daily Quantity: 0 Refills: 0 Ordered: 13-Dec-2021 DO Active oxycodone HCl/acetaminophen (OXYCODONE-ACETAMINOPHEN ORAL) (2 sources) Start: 024 End: 025 oxycodone HCl/acetaminophen (OXYCODONE-ACETAMI NOPHEN ORAL) Take by mouth. 02/23/2024 12/07/2024 Discontinued (Therapy completed) Start: 02-23-2024 oxycodone HCl/ acetaminophen (OXYCODONE-ACETAMINOPHEN ORAL) Take by mouth. 02/23/2024 Active traZODone hydrochloride 50 mg oral tablet [...] Coronary arteriosclerosis; 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 [place] coronary artery without angina pectoris] Onset: 09-03-2023 Chronic Disorders of lipid metabolism (20 sources) Hyperlipidemia; Translations: [Hyperlipidemia, unspecified] Onset: 04-26-2021 Resolved: 04-26-2021 Chronic Essential hypertension (20 sources) Hypertensive disorder; Translations: [Essential (primary) hypertension] Onset: 09-10-2021 Resolved: 02-14-2022 Chronic Heart valve disorders (20 sources) Aortic valve stenosis; Translations: [Aortic valve disorders] Onset: 02-26-2023 Chronic Nutritional deficiencies (1 source) Vitamin D deficiency, unspecified; Translations: [Vitamin D deficiency, unspecified] Onset: 07-28-2024 Chronic Osteoporosis (1 source) Osteoporosis; Translations: [Age-related osteoporosis without current pathological fracture] Chronic Other aftercare (1 source) 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 terminal 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 operator (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; Translations: [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] Onset: 02-22-2022 Episodic Other [...] the circulatory and respiratory systems] Episodic Other connective tissue disease (20 sources) [...] Episodic Other nutritional; endocrine; and metabolic disorders (14 sources) Overweight in adulthood with body mass index of 25 or more but less than 30; Translations: [Overweight] Onset: 04-16-2024 04-16-2024 Episodic Other nutritional; endocrine; and metabolic disorders (1 source) Overweight; Translations: [Overweight] 01-14-2025 Episodic Other nutritional; endocrine; and metabolic disorders (2 sources) Body mass index (BMI) 27.0-27.9, adult; Translations: [Body mass index (BMI) 27.0-27.9, adult] Onset: 01-14-2025 Episodic Other screening for suspected conditions (not [...] 10-01-2021 Resolved: 10-01-2021 Episodic Residual codes; unclassified (9 sources) Never smoked any substance; Translations: [Other [...] and giddiness] Onset: 02-14-2022 Resolved: 02-14-2022 Episodic Heart valve disorders (20 sources) Heart murmur; Translations: [Cardiac murmur, unspecified] Onset: 10-01-2021 Resolved: 10-01-2021 Episodic Other acquired deformities (1 source) Spondylolisthesis, [...] 02-22-2022 Resolved: 02-22-2022 Episodic Other circulatory disease (20 sources) Carotid bruit; Translations: [Other symptoms involving [...] other serum enzymes] Onset: 09-03-2023 Episodic Other nutritional; endocrine; and metabolic disorders (2 sources) Body mass index (BMI) 26.0-26.9, adult; Translations: [Body mass index (BMI) 26.0-26.9, adult] Onset: 04-16-2024 Episodic Other skin disorders (1 source) Localized [...] Unclassified (1 source) Vaccine counseling Z71.85 Unclassified (6 sources) Onset: 06-19-2023 Resolved: 01-14-2025 06-19-2023 Viral infection (20 sources) Disease caused by 2019-nCoV; Translations: [COVID-19] Onset: 01-11-2022 Resolved: 01-11-2022 Results Test Name Value Interpretation Reference Range Facility TRANSTHORACIC ECHO (TTE) [facility] 12-21-2024 TRANSTHORACIC ECHO (TTE) [address], [address] [place] [address] TRANSTHORACIC ECHOCARDIOGRAM REPORT Patient Name: LAVONNE Bahena Physician: [id number] Shy Wolf MD, [facility] Study Date: 12/21/2024 Ordering Provider: [id number] SHY WOLF MRN/PID: [id number] Fellow: Nurse: Date of /Age: 3 1935 / 89 years Dentist: Sheridan Lemus RDCS, RVT Gender Assigned at F Additional Staff: : Height: 157.48 cm Admit Date: Weight: 65.77 kg Admission Status: Outpatient BSA / BMI: 1.67 m2 / 26.52 Department Location: Merged With [facility] Heart kg/m2 [place] Blood Pressure: 146 /68 mmHg Study Type: TRANSTHORACIC ECHO (TTE) COMPLETE Diagnosis/ICD: Nonrheumatic aortic (valve) stenosis-I35.0 Indication: HTN, Hyperlipidemia, 2/6 Systolic Murmur, Hypothyroid CPT Codes: Echo Complete w Full Doppler-[id number] Study Detail: The following Echo studies were performed: 2D, M-Mode, Doppler and color flow. PHYSICIAN INTERPRETATION: Left Ventricle: Left ventricular ejection fraction is normal by visual estimate at 65-70%. There is mild left ventricular hypertrophy. There are no regional wall motion abnormalities. The left ventricular cavity size is normal. There is mild increased septal and mildly increased posterior left ventricular wall thickness. There is left ventricular concentric remodeling. Spectral Doppler shows an abnormal pattern of left ventricular diastolic filling. Left Atrium: The left atrial size is mild to moderately dilated. Right Ventricle: The right ventricle is normal in size. There is normal right ventricular global systolic function. Right Atrium: The right atrial size is normal. Aortic Valve: The aortic valve is trileaflet. The aortic valve area by VTI is 0.90 cm??? with a peak velocity of 3.27 m/s. The peak and mean gradients are 41 mmHg and 23 mmHg, respectively, with a dimensionless index of 0.32. There is mild to moderate aortic valve cusp calcification. There is no evidence of aortic valve regurgitation. Mitral Valve: The mitral valve is mildly thickened. The doppler estimated peak and mean diastolic gradients are 8 mmHg and 3 mmHg, respectively. There is trace mitral valve regurgitation. The E Vmax is 1.22 m/s. Tricuspid Valve: The tricuspid valve is structurally normal. There is trace to mild tricuspid regurgitation. The Doppler estimated right ventricular systolic pressure (RVSP) is slightly elevated at 34 mmHg. Pulmonic Valve: The pulmonic valve is structurally normal. There is mild to moderate pulmonic valve regurgitation. Pericardium: No pericardial effusion noted. Aorta: The aortic root is normal. Systemic Veins: The inferior vena cava appears normal in size, with IVC inspiratory collapse greater than 50%. In comparison to the previous echocardiogram(s): When compared to study from 02/11/2024, moderate pulmonary hypertension noted previously is no longer seen. CONCLUSIONS: 1. Left ventricular ejection fraction is normal by visual estimate at 65-70%. 2. Spectral Doppler shows an abnormal pattern of left ventricular diastolic filling. 3. There is normal right ventricular global systolic function. 4. The left atrial size is mild to moderately dilated. 5. The Doppler estimated RVSP is slightly elevated at 34 mmHg. 6. Mild to moderate pulmonic valve regurgitation. 7. When compared to study from 02/11/2024, moderate pulmonary hypertension noted previously is no longer seen. QUANTITATIVE DATA SUMMARY: 2D MEASUREMENTS: Normal Ranges: Ao Root s: 2.60 cm LAs: 3.62 cm (2.7-4.0cm) RVIDd: 2.51 cm (0.9-3.6cm) IVSd: 1.16 cm (0.6-1.1cm) LVPWd: 0.97 cm (0.6-1.1cm) LVIDd: 4.03 cm (3.9-5.9cm) LVIDs: 2.37 cm LV Mass Index: 84.5 g/m2 LVEDV Index: 32.86 ml/m2 LV % FS 41.1 % LEFT ATRIUM: Normal Ranges: LA Vol A4C: 86.0 ml (22+/-6mL/m2) LA Vol A2C: 49.9 ml LA Vol BP: 72.4 ml LA Vol Index A4C: 51.6ml/m2 LA Vol Index A2C: 30.0 ml/m2 LA Vol Index BP: 43.4 ml/m2 LA Vol A4C: 81.6 ml LA Vol A2C: 48.3 ml LA Vol Index BSA: 38.9 ml/m2 LV SYSTOLIC FUNCTION: Normal Ranges: EF-A4C View: 77 % (>=55%) EF-A2C View: 63 % EF-Biplane: 71 % EF-Visual: 68 % LV EF Reported: 68 % LV DIASTOLIC FUNCTION: Normal Ranges: MV Peak E: 1.22 m/s (0.7-1.2 m/s) MV Peak A: 1.22 m/s (0.42-0.7 m/s) E/A Ratio: 1.00 (1.0-2.2) MV e' 0.077 m/s (>8.0) MV lateral e' 0.08 m/s MV medial e' 0.07 m/s E/e' Ratio: 15.93 (<8.0) MITRAL VALVE: Normal Ranges: MV Vmax: 1.37 m/s (<=1.3m/s) MV peak P.5 mmHg (<5mmHg) MV mean P.3 mmHg (<48mmHg) MV VTI: 56.15 cm (10-13cm) MV DT: 322 msec (150-240msec) AORTIC VALVE: Normal Ranges: AoV Vmax: 3.27 m/s (<=1.7m/s) AoV Peak P.7 mmHg (<20mmHg) AoV Mean P.0 mmHg (1.7-11.5mmHg) LVOT Max Haseeb: 0.99 m/s (<=1.1m/s) AoV VTI: 92.68 cm (18-25cm) LVOT VTI: 29.77 cm LVOT Diameter: 1.89 cm (1.8-2.4cm) AoV Area, VTI: 0.90 cm2 (2.5-5.5cm2) AoV Area,Vmax: 0.85 cm (more content not included)... Normal [facility] US Heart Transthoracicon Aortic Valve Area by Continuity of Peak Velocity 0.85 cm2 [facility] Work Phone: Aortic Valve Area by Continuity of VTI 0.9 cm2 [facility] Work Phone: AV mn grad 23 mmHg [facility] Work Phone: AV pk grad 43 mmHg [facility] Work Phone: AV pk haseeb 3.27 m/s [facility] Work Phone: LA vol index A/L 43.4 ml/m2 [facility] Work Phone: LV A4C EF 76.9 [facility] Work Phone: LV Biplane EF 71 % [facility] Work Phone: LV EF 68 % [facility] Work Phone: LVIDd 4.03 cm [facility] Work Phone: LVOT diam 1.89 cm [facility] Work Phone: MV avg E/e' ratio 15.93 [facility] Work Phone: MV E/A ratio 1 [facility] Work Phone: RV free wall pk S' 11.98 cm/s [facility] Work Phone: RVSP 34 mmHg [facility] Work Phone: Tricuspid annular plane systolic excursion 2.4 cm [facility] Work Phone: [address], [place] [address] TRANSTHORACIC ECHOCARDIOGRAM REPORT Patient Name: LAVONNE VILLATORO Reading Physician: [id number] Wolf MD, [facility] Study Date: 12/21/2024 Ordering Provider: [id number] SHY WOLF MRN/PID: [id number] Fellow: Nurse: Date of /Age: 3 1935 / 89 years Dentist: Sheridan Lemus RDCS T Gender Assigned at F Additional Staff: : Height: 157.48 cm Admit Date: Weight: 65.77 kg Admission Status: Outpatient BSA / BMI: 1.67 m2 / 26.52 Department Location: Merged With [facility] Heart kg/m2 [place] Blood Pressure: 146 /68 mmHg Study Type: TRANSTHORACIC ECHO (TTE) COMPLETE Diagnosis/ICD: Nonrheumatic aortic (valve) stenosis-I35.0 Indication: HTN, Hyperlipidemia, 2/6 Systolic Murmur, Hypothyroid CPT Codes: Echo Complete w Full Doppler-[id number] Study Detail: The following Echo studies were performed: 2D, M-Mode, Doppler and color flow. PHYSICIAN INTERPRETATION: Left Ventricle: Left ventricular ejection fraction is normal by visual estimate at 65-70%. There is mild left ventricular hypertrophy. There are no regional wall motion abnormalities. The left ventricular cavity size is normal. There is mild increased septal and mildly increased posterior left ventricular wall thickness. There is left ventricular concentric remodeling. Spectral Doppler shows an abnormal pattern of left ventricular diastolic filling. Left Atrium: The left atrial size is mild to moderately dilated. Right Ventricle: The right ventricle is normal in size. There is normal right ventricular global systolic function. Right Atrium: The right atrial size is normal. Aortic Valve: The aortic valve is trileaflet. The aortic valve area by VTI is 0.90 cm with a peak velocity of 3.27 m/s. The peak and mean gradients are 41 mmHg and 23 mmHg, respectively, with a dimensionless index of 0.32. There is mild to moderate aortic valve cusp calcification. There is no evidence of aortic valve regurgitation. Mitral Valve: The mitral valve is mildly thickened. The doppler estimated peak and mean diastolic gradients are 8 mmHg and 3 mmHg, respectively. There is trace mitral valve regurgitation. The E Vmax is 1.22 m/s. Tricuspid Valve: The tricuspid valve is structurally normal. There is trace to mild tricuspid regurgitation. The Doppler estimated right ventricular systolic pressure (RVSP) is slightly elevated at 34 mmHg. Pulmonic Valve: The pulmonic valve is structurally normal. There is mild to moderate pulmonic valve regurgitation. Pericardium: No pericardial effusion noted. Aorta: The aortic root is normal. Systemic Veins: The inferior vena cava appears normal in size, with IVC inspiratory collapse greater than 50%. In comparison to the previous echocardiogram(s): When compared to study from 02/11/2024, moderate pulmonary hypertension noted previously is no longer seen. CONCLUSIONS: 1. Left ventricular ejection fraction is normal by visual estimate at 65-70%. 2. Spectral Doppler shows an abnormal pattern of left ventricular diastolic filling. 3. There is normal right ventricular global systolic function. 4. The left atrial size is mild to moderately dilated. 5. The Doppler estimated RVSP is slightly elevated at 34 mmHg. 6. Mild to moderate pulmonic valve regurgitation. 7. When compared to study from 02/11/2024, moderate pulmonary hypertension noted previously is no longer seen. QUANTITATIVE DATA SUMMARY: 2D MEASUREMENTS: Normal Ranges: Ao Root s: 2.60 cm LAs: 3.62 cm (2.7-4.0cm) RVIDd: 2.51 cm (0.9-3.6cm) IVSd: 1.16 cm (0.6-1.1cm) LVPWd: 0.97 cm (0.6-1.1cm) LVIDd: 4.03 cm (3.9-5.9cm) LVIDs: 2.37 cm LV Mass Index: 84.5 g/m2 LVEDV Index: 32.86 ml/m2 LV % FS 41.1 % LEFT ATRIUM: Normal Ranges: LA Vol A4C: 86.0 ml (22+/-6mL/m2) LA Vol A2C: 49.9 ml LA Vol BP: 72.4 ml LA Vol Index A4C: 51.6ml/m2 LA Vol Index A2C: 30.0 ml/m2 LA Vol Index BP: 43.4 ml/m2 LA Vol A4C: 81.6 ml LA Vol A2C: 48.3 ml LA Vol Index BSA: 38.9 ml/m2 LV SYSTOLIC FUNCTION: Normal Ranges: EF-A4C View: 77 % (>=55%) EF-A2C View: 63 % EF-Biplane: 71 % EF-Visual: 68 % LV EF Reported: 68 % LV DIASTOLIC FUNCTION: Normal Ranges: MV Peak E: 1.22 m/s (0.7-1.2 m/s (more content not included)... Shy Winn M D - 12/21/[address], [address] [place] [address] TRANSTHORACIC ECHOCARDIOGRAM REPORT Patient Name: LAVONNE Bahena Physician: [id number] Shy Wolf MD, [facility] Study Date: 12/21/2024 Ordering Provider: [id number] SHY WOLF MRN/PID: [id number] Fellow: Nurse: Date of /Age: 3 1935 / 89 years Dentist: Sheridan Lemus RDCS RVT Gender Assigned at F Additional Staff: : Height: 157.48 cm Admit Date: Weight: 65.77 kg Admission Status: Outpatient BSA / BMI: 1.67 m2 / 26.52 Department Location: [facility]/[address] Blood Pressure: 146 /68 mmHg Study Type: TRANSTHORACIC ECHO (TTE) COMPLETE Diagnosis/ICD: Nonrheumatic aortic (valve) stenosis-I35.0 Indication: HTN, Hyperlipidemia, 2/6 Systolic Murmur, Hypothyroid CPT Codes: Echo Complete w Full Doppler-28940 Study Detail: The following Echo studies were performed: 2D, M-Mode, Doppler and color flow. PHYSICIAN INTERPRETATION: Left Ventricle: Left ventricular ejection fraction is normal by visual estimate at 65-70%. There is mild left ventricular hypertrophy. There are no regional wall motion abnormalities. The left ventricular cavity size is normal. There is mild increased septal and mildly increased posterior left ventricular wall thickness. There is left ventricular concentric remodeling. Spectral Doppler shows an abnormal pattern of left ventricular diastolic filling. Left Atrium: The left atrial size is mild to moderately dilated. Right Ventricle: The right ventricle is normal in size. There is normal right ventricular global systolic function. Right Atrium: The right atrial size is normal. Aortic Valve: The aortic valve is trileaflet. The aortic valve area by VTI is 0.90 cm with a peak velocity of 3.27 m/s. The peak and mean gradients are 41 mmHg and 23 mmHg, respectively, with a dimensionless index of 0.32. There is mild to moderate aortic valve cusp calcification. There is no evidence of aortic valve regurgitation. Mitral Valve: The mitral valve is mildly thickened. The doppler estimated peak and mean diastolic gradients are 8 mmHg and 3 mmHg, respectively. There is trace mitral valve regurgitation. The E Vmax is 1.22 m/s. Tricuspid Valve: The tricuspid valve is structurally normal. There is trace to mild tricuspid regurgitation. The Doppler estimated right ventricular systolic pressure (RVSP) is slightly elevated at 34 mmHg. Pulmonic Valve: The pulmonic valve is structurally normal. There is mild to moderate pulmonic valve regurgitation. Pericardium: No pericardial effusion noted. Aorta: The aortic root is normal. Systemic Veins: The inferior vena cava appears normal in size, with IVC inspiratory collapse greater than 50%. In comparison to the previous echocardiogram(s): When compared to study from 02/11/2024, moderate pulmonary hypertension noted previously is no longer seen. CONCLUSIONS: 1. Left ventricular ejection fraction is normal by visual estimate at 65-70%. 2. Spectral Doppler shows an abnormal pattern of left ventricular diastolic filling. 3. There is normal right ventricular global systolic function. 4. The left atrial size is mild to moderately dilated. 5. The Doppler estimated RVSP is slightly elevated at 34 mmHg. 6. Mild to moderate pulmonic valve regurgitation. 7. When compared to study from 02/11/2024, moderate pulmonary hypertension noted previously is no longer seen. QUANTITATIVE DATA SUMMARY: 2D MEASUREMENTS: Normal Ranges: Ao Root s: 2.60 cm LAs: 3.62 cm (2.7-4.0cm) RVIDd: 2.51 cm (0.9-3.6cm) IVSd: 1.16 cm (0.6-1.1cm) LVPWd: 0.97 cm (0.6-1.1cm) LVIDd: 4.03 cm (3.9-5.9cm) LVIDs: 2.37 cm LV Mass Index: 84.5 g/m2 LVEDV Index: 32.86 ml/m2 LV % FS 41.1 % LEFT ATRIUM: Normal Ranges: LA Vol A4C: 86.0 ml (22+/-6mL/m2) LA Vol A2C: 49.9 ml LA Vol BP: 72.4 ml LA Vol Index A4C: 51.6ml/m2 LA Vol Index A2C: 30.0 ml/m2 LA Vol Index BP: 43.4 ml/m2 LA Vol A4C: 81.6 ml LA Vol A2C: 48.3 ml LA Vol Index BSA: 38.9 ml/m2 LV SYSTOLIC FUNCTION: Normal Ranges: EF-A4C View: 77 % (>=55%) EF-A2C View: 63 % EF-Biplane: 71 % EF-Visual: 68 % LV EF Reported: 68 % LV DIASTOLIC FUNCTION: Normal Ranges: MV Peak E: 1.22 m/s (0.7-1.2 m/s) MV Peak A: 1.22 m/s (0.42-0.7 m/s) E/A Ratio: 1.00 (1.0-2.2) MV e' 0.077 m/s (>8.0) MV lateral e' 0.08 m/s MV medial e' 0.07 m/s E/e' Ratio: 15.93 (<8.0) MITRAL VALVE: Normal Ranges: MV Vmax: 1.37 m/s (<=1.3m/s) MV peak P.5 mmHg (<5mmHg) MV mean P.3 mmHg (<48mmHg) MV VTI: 56.15 cm (10-13cm) MV DT: 322 msec (150-240msec) AORTIC VALVE: Normal Ranges: AoV Vmax: 3.27 m/s (<=1.7m/s) AoV Peak P.7 mmHg (<20mmHg) AoV Mean P.0 mmHg (1.7-11.5mmHg) LVOT Max Haseeb: 0.99 m/s (<=1.1m/s) AoV VTI: 92.68 cm (18-25cm) LVOT VTI: (more content not included)... [facility] Work Phone: [facility] Work Phone: Complete Blood Count Auto Di ffon 07-28-2024 Basophils (Bld) [#/Vol] 0.1 10*3/uL Normal 0.0-0.2 [facility] Comment on above: Performed By: #### V [id number], CMP, TSH3, LIPID, CBC, T4F, ESR #### [address] Basophils/100 WBC (Bld) 1.1 % Normal . [facility] Comment on above: Performed By: #### V [id number], CMP, TSH3, LIPID, CBC, T4F, ESR #### [address] Eosinophils (Bld) [#/Vol] 0.1 10*3/uL Normal 0.0-0.45 [facility] Comment on above: Performed By: #### V [id number], CMP, TSH3, LIPID, CBC, T4F, ESR #### [address] Eosinophils/100 WBC (Bld) 2.2 % Normal . [facility] Comment on above: Performed By: #### V [id number], CMP, TSH3, LIPID, CBC, T4F, ESR #### [address] Erythrocyte distribution width (RBC) [Ratio] 13.5 % Normal 11.9-15.3 [facility] Comment on above: Performed By: #### V [id number], CMP, TSH3, LIPID, CBC, T4F, ESR #### [address] Hematocrit (Bld) [Volume fraction] 37.9 % Normal 34.0-46.4 [facility] Comment on above: Performed By: #### V [id number], CMP, TSH3, LIPID, CBC, T4F, ESR #### [address] Hemoglobin (Bld) [Mass/Vol] 12.9 g/dL Normal 11.8-15.4 [facility] Comment on above: Performed By: #### V [id number], CMP, TSH3, LIPID, CBC, T4F, ESR #### [address] Lymphocytes (Bld) [#/Vol] 2.2 10*3/uL Normal 1.00-4.8 [facility] Comment on above: Performed By: #### V [id number], CMP, TSH3, LIPID, CBC, T4F, ESR #### [address] Lymphocytes/100 WBC (Bld) 34.3 % Normal . [facility] Comment on above: Performed By: #### V [id number], CMP, TSH3, LIPID, CBC, T4F, ESR #### [address] MCH (RBC) [Entitic mass] 33.5 pg Normal 24.7-34.3 [facility] Comment on above: Performed By: #### V [id number], CMP, TSH3, LIPID, CBC, T4F, ESR #### [address] MCV (RBC) [Entitic vol] 98.4 fL Normal 80-100 [facility] Comment on above: Performed By: #### V [id number], CMP, TSH3, LIPID, CBC, T4F, ESR #### [address] Mean Corpuscular HGB Conc 34.1 g/dL Normal 32.0-35.0 [facility] Comment on above: Performed By: #### V [id number], CMP, TSH3, LIPID, CBC, T4F, ESR #### [address] Monocytes (Bld) [#/Vol] 0.6 10*3/uL Normal 0.0-0.8 [facility] Comment on above: Performed By: #### V [id number], CMP, TSH3, LIPID, CBC, T4F, ESR #### [address] Monocytes/100 WBC (Bld) 9.8 % Normal . [facility] Comment on above: Performed By: #### V [id number], CMP, TSH3, LIPID, CBC, T4F, ESR #### [address] Neutrophils (Bld) [#/Vol] 3.4 10*3/uL Normal 1.8-7.7 [facility] Comment on above: Performed By: #### V [id number], CMP, TSH3, LIPID, CBC, T4F, ESR #### [address] Neutrophils/100 WBC (Bld) 52.6 % Normal . [facility] Comment on above: Performed By: #### V [id number], CMP, TSH3, LIPID, CBC, T4F, ESR #### [address] NRBC% 0.3 /100{WBC} Normal 0-0.5 [facility] Comment on above: Performed By: #### V [id number], CMP, TSH3, LIPID, CBC, T4F, ESR #### [address] Platelet mean volume (Bld) [Entitic vol] 9.3 fL Normal 6.3-10.7 [facility] Comment on above: Performed By: #### V [id number], CMP, TSH3, LIPID, CBC, T4F, ESR #### [address] Platelets (Bld) [#/Vol] 208 10*3/uL Normal 150-450 [facility] Comment on above: Performed By: #### V [id number], CMP, TSH3, LIPID, CBC, T4F, ESR #### [address] RBC (Bld) [#/Vol] 3.85 10*6/uL Normal 3.60-5.00 [facility] Comment on above: Performed By: #### V [id number], CMP, TSH3, LIPID, CBC, T4F, ESR #### [address] WBC (Bld) [#/Vol] 6.6 10*3/uL Normal 3.8-11.6 [facility] Comment on above: Performed By: #### V [id number], CMP, TSH3, LIPID, CBC, T4F, ESR #### [address] Comprehensive Metabolic Pane nory 07-28-2024 Albumin [Mass/Vol] 3.7 g/dL Normal 3.5-5.7 [facility] Comment on above: Performed By: #### V [id number], CMP, TSH3, LIPID, CBC, T4F, ESR #### [address] Albumin/Globulin [Mass ratio] 1.9 {ratio} Normal [facility] Comment on above: Performed By: #### V [id number], CMP, TSH3, LIPID, CBC, T4F, ESR #### [address] ALP [Catalytic activity/Vol] 62 U/L Normal 34-104 [facility] Comment on above: Performed By: #### V [id number], CMP, TSH3, LIPID, CBC, T4F, ESR #### [address] ALT [Catalytic activity/Vol] 21 U/L Normal 7-52 [facility] Comment on above: Performed By: #### V [id number], CMP, TSH3, LIPID, CBC, T4F, ESR #### [address] Anion gap [Moles/Vol] 8.2 mmol/L Normal 6.0-15.0 [facility] Comment on above: Performed By: #### V [id number], CMP, TSH3, LIPID, CBC, T4F, ESR #### [address] AST [Catalytic activity/Vol] 19 U/L Normal 13-39 [facility] Comment on above: Performed By: #### V [id number], CMP, TSH3, LIPID, CBC, T4F, ESR #### [address] Bilirubin [Mass/Vol] 0.7 mg/dL Normal 0.3-1.0 [facility] Comment on above: Performed By: #### V [id number], CMP, TSH3, LIPID, CBC, T4F, ESR #### [address] Calcium [Mass/Vol] 9.7 mg/dL Normal 8.6-10.3 [facility] Comment on above: Performed By: #### V [id number], CMP, TSH3, LIPID, CBC, T4F, ESR #### [address] Chloride [Moles/Vol] 107 mmol/L Normal 98-107 [facility] Comment on above: Performed By: #### V [id number], CMP, TSH3, LIPID, CBC, T4F, ESR #### [address] CO2 [Moles/Vol] 31.5 mmol/L High 21.0-31.0 [facility] Comment on above: Performed By: #### V [id number], CMP, TSH3, LIPID, CBC, T4F, ESR #### [address] Creatinine [Mass/Vol] 0.67 mg/dL Normal 0.60-1.20 [facility] Comment on above: Performed By: #### V [id number], CMP, TSH3, LIPID, CBC, T4F, ESR #### [address] GFR/1.73 sq M.predicted MDRD (S/P/Bld) [Vol rate/Area] mL/min/{1.73_m2} Normal [facility] Comment on above: Performed By: #### V [id number], CMP, TSH3, LIPID, CBC, T4F, ESR #### [address] Globulin (S) [Mass/Vol] 1.9 g/dL Normal [facility] Comment on above: Performed By: #### V [id number], CMP, TSH3, LIPID, CBC, T4F, ESR #### [address] Glucose [Mass/Vol] 89 mg/dL Normal 70-100 [facility] Comment on above: Result Comment: [facility] Glucose Reference Range is dependent on time and content of last meal. Glucose of more than 200 mg/dL in a nonstressed, ambulatory subject supports the diagnosis of Diabetes Mellitus. ADA recommended reference range Performed By: #### V [id number], CMP, TSH3, LIPID, CBC, T4F, ESR #### [address] Potassium [Moles/Vol] 3.7 mmol/L Normal 3.5-5.1 [facility] Comment on above: Performed By: #### V [id number], CMP, TSH3, LIPID, CBC, T4F, ESR #### [address] Protein [Mass/Vol] 5.6 g/dL Low 6.4-8.9 [facility] Comment on above: Performed By: #### V [id number], CMP, TSH3, LIPID, CBC, T4F, ESR #### [address] Sodium [Moles/Vol] 143 mmol/L Normal 136-145 [facility] Comment on above: Performed By: #### V [id number], CMP, TSH3, LIPID, CBC, T4F, ESR #### [address] Urea nitrogen [Mass/Vol] 19 mg/dL Normal 7-25 [facility] Comment on above: Performed By: #### V [id number], CMP, TSH3, LIPID, CBC, T4F, ESR #### [address] Erythrocyte Sedimentation Ra amy 07-28-2024 ESR (Bld) [Velocity] 9 mm/h Normal 0-29 [facility] Comment on above: Result Comment: PERF ORMED BY: [place] [address] PATHOLOGIST BAG MACHINE ADJUSTER JASIEL HURTADO M.D. Performed By: #### V [id number], CMP, TSH3, LIPID, CBC, T4F, ESR #### [address] Free T4 (Free Thyroxine)on 0 07-28-2024 Free T4 [Mass/Vol] 0.74 ng/dL Normal 0.61-1.12 [facility] Comment on above: Performed By: #### L IPID, TSH3, CMP, CBC #### [address] Lipid Panelon 07-28-2024 Cholesterol [Mass/Vol] 228 mg/dL High 140-200 [facility] Comment on above: Result Comment: Chol less than 200 mg/dl low risk Chol 201-239 mg/dl borderline risk Chol 240 mg/dl and greater high risk Performed By: #### V [id number], CMP, TSH3, LIPID, CBC, T4F, ESR #### [address] Cholesterol in HDL [Mass/Vol] 96 mg/dL High 23-92 [facility] Comment on above: Result Comment: HDL CHOL ATP-III CLASSIFICATION Cardiovascular Risk HDL > or equal to 60 mg/dL LOW HDL < 40 mg/dL HIGH Performed By: #### V [id number], CMP, TSH3, LIPID, CBC, T4F, ESR #### [facility] [address] [place] [address] [facility] Cholesterol.total/Ch olesterol in HDL [Mass ratio] 2.4 {ratio} Normal <5.0 [facility] Comment on above: Performed By: #### V [id number], CMP, TSH3, LIPID, CBC, T4F, ESR #### [facility] [address] LDL Cholesterol,Calculat ed 121 mg/dL High 0-100 [facility] Comment on above: Result Comment: LDL ATP III CLASSIFICATION LDL less than 100 mg/dL Optimal LDL 100-129 mg/dL Near or above optimal LDL 130-159 mg/dL Borderline high LDL 160-189 mg/dL High LDL greater than 189 mg/dL Very high Performed By: #### V [id number], CMP, TSH3, LIPID, CBC, T4F, ESR #### [facility] [address] [place] [id number] [facility] Triglyceride w/Reflex 57 mg/dL Normal 0-149 [facility] Comment on above: Result Comment: TRIG ATP III CLASSIFICATION TRIG less than 150 mg/dL Normal TRIG 150-199 mg/dL Borderline high TRIG 200-500 mg/dL High TRIG greater than 500 mg/dL Very high Standard traceable to the Center for Disease Conrtrol and Prevention (CDC) test method. Performed By: #### V [id number], CMP, TSH3, LIPID, CBC, T4F, ESR #### [facility] [address] [place] [id number] [facility] VLDL CHOLESTEROL 11 mg/dL Normal [facility] Comment on above: Performed By: #### V [id number], CMP, TSH3, LIPID, CBC, T4F, ESR #### [facility] [address] [place] [id number] [facility] Thyroid Stimulating Hormoneo n 07-28-2024 TSH Qn 6.38 m[IU]/L High 0.45-5.33 [facility] Comment on above: Performed By: #### L IPID, TSH3, CMP, CBC #### [address] Vitamin D 25 Hydroxy Totalon 07-28-2024 Vitamin D 25 Hydroxy Total 28.4 ng/mL Low 30-100 [facility] Comment on above: Result Comment: ANUJ MIN D STATUS 25(OH)VITAMIN D RANGE (ng/mL) Deficient <20 Insufficient 20 to <30 Sufficient 30 to 100 Reference: Yolanda MF,Nathan NC, Keshawn FRANCO, et al. Evaluation,treatment, and prevention of vitamin D deficiency; an Endocrine Society clinical practice guideline. JCEM. 2010; 96(7):1911-30. PERFORMED BY: [place] [address] PATHOLOGIST BAG MACHINE ADJUSTER JASIEL HURTADO M.D. Performed By: #### L IPID, TSH3, CMP, CBC #### [address] XR scapula LT*on 05-25-2024 XR scapula LT* [facility] [place] [address] [place] [address] XRay Report Signed Patient: Lavonne Villatoro MR#: [id number] : 1935 Acct:[id number] Age/Sex: 88 / F ADM Date: 05/25/24 Loc: XD Room: Type: [facility] Attending Dr: Suhas Garrett DO Copies to: Suhas Garrett DO Ordering Provider: Suhas Garrett DO Date of Service: 05/25/24 XR/XR shoulder LT min 2V*: M25.519 - Pain in unspecified shoulder ([id number]) XR/XR scapula LT*: M25.519 - Pain in [...] Casandra Gómez M.D.05/25/2024 4:45 PM Dictation Location: [place] [address] Transcribed By: [facility] 05/25/24 1645 Dictated By: Casandra Gómez MD 05/25/241641 Signed By: 05/25/24 1645 Normal [facility] TRANSTHORACIC ECHO (TTE) [facility] 02-11-2024 TRANSTHORACIC ECHO (TTE) COMPLETE [address], [address] [place] [address] TRANSTHORACIC ECHOCARDIOGRAM REPORT Patient Name: LAVONNE Bahena Physician: [id number] Wolf MD, [facility] Study Date: 02/11/2024 Ordering Provider: [id number] SHY WOLF MRN/PID: [id number] Fellow: Nurse: Date of /Age: 3 1935 / 88 years Dentist: LILIA Gender: F Additional Staff: Height: 157.48 cm Admit Date: Weight: 69.40 kg Admission Status: BSA / BMI: 1.71 m2 / 27.98 kg/m2 Department Location: [facility] Blood Pressure: 116 /76 mmHg Study Type: TRANSTHORACIC ECHO (TTE) COMPLETE Diagnosis/ICD: 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 [facility] US carotid doppler BIon 05-0 US carotid doppler BI [facility] [place] [address] [place] [address] Ultrasound Report Signed Patient: Lavonne Villatoro MR#: [id number] : 1935 Acct:[id number] Age/Sex: 88 / F ADM Date: 10/14/23 Loc: Room: Type: [facility] Attending Dr: Suhas Garrett DO Ordering [...] Hola Wynn M.D.10/15/2023 11:47 AM Dictation Location: [place] [address] Tech: Jackie Aguillon Transcribed By: KIRILL 10/15/23 1147 Dictated By: Hola Wynn MD 10/15/23 1145 Signed By: 10/15/23 1147 Normal [facility] Complete Blood Count Auto Di ffon 09-03-2023 Basophils (Bld) [#/Vol] 0.0 10*3/uL Normal 0.0-0.2 [facility] Comment on above: Result Comment: PERF ORMED BY: [place] [address] PATHOLOGIST BAG MACHINE ADJUSTER JODY SOLANO M.D. Performed By: #### L IPID, TSH3, CMP, CBC #### [facility] [address] [place] [address] [place] Basophils/100 WBC (Bld) 0.7 % Normal . [facility] Comment on above: Performed By: #### L IPID, TSH3, CMP, CBC #### [facility] [address] [place] [address] [place] Eosinophils (Bld) [#/Vol] 0.1 10*3/uL Normal 0.0-0.45 [facility] Comment on above: Performed By: #### L IPID, TSH3, CMP, CBC #### [place] [address] [place] Eosinophils/100 WBC (Bld) 1.6 % Normal . [facility] Comment on above: Performed By: #### L IPID, TSH3, CMP, CBC #### [address] Erythrocyte distribution width (RBC) [Ratio] 14.8 % Normal 11.9-15.3 [facility] Comment on above: Performed By: #### L IPID, TSH3, CMP, CBC #### [address] Hematocrit (Bld) [Volume fraction] 39.9 % Normal 34.0-46.4 [facility] Comment on above: Performed By: #### L IPID, TSH3, CMP, CBC #### [address] Hemoglobin (Bld) [Mass/Vol] 13.2 g/dL Normal 11.8-15.4 [facility] Comment on above: Performed By: #### L IPID, TSH3, CMP, CBC #### [address] Lymphocytes (Bld) [#/Vol] 2.6 10*3/uL Normal 1.00-4.8 [facility] Comment on above: Performed By: #### L IPID, TSH3, CMP, CBC #### [address] Lymphocytes/100 WBC (Bld) 43.5 % Normal . [facility] Comment on above: Performed By: #### L IPID, TSH3, CMP, CBC #### [address] MCH (RBC) [Entitic mass] 33.2 pg Normal 24.7-34.3 [facility] Comment on above: Performed By: #### L IPID, TSH3, CMP, CBC #### [address] MCV (RBC) [Entitic vol] 100.5 fL High 80-100 [facility] Comment on above: Performed By: #### L IPID, TSH3, CMP, CBC #### [address] Mean Corpuscular HGB Conc 33.0 g/dL Normal 32.0-35.0 [facility] Comment on above: Performed By: #### L IPID, TSH3, CMP, CBC #### [address] Monocytes (Bld) [#/Vol] 0.6 10*3/uL Normal 0.0-0.8 [facility] Comment on above: Performed By: #### L IPID, TSH3, CMP, CBC #### [address] Monocytes/100 WBC (Bld) 9.7 % Normal . [facility] Comment on above: Performed By: #### L IPID, TSH3, CMP, CBC #### [address] Neutrophils (Bld) [#/Vol] 2.7 10*3/uL Normal 1.8-7.7 [facility] Comment on above: Performed By: #### L IPID, TSH3, CMP, CBC #### [place] [address] [place] Neutrophils/100 WBC (Bld) 44.5 % Normal . [facility] Comment on above: Performed By: #### L IPID, TSH3, CMP, CBC #### [address] NRBC% 0.2 /100{WBC} Normal 0-0.5 [facility] Comment on above: Performed By: #### L IPID, TSH3, CMP, CBC #### [place] [address] [place] Platelet mean volume (Bld) [Entitic vol] 9.2 fL Normal 6.3-10.7 [facility] Comment on above: Performed By: #### L IPID, TSH3, CMP, CBC #### [place] [address] [place] Platelets (Bld) [#/Vol] 229 10*3/uL Normal 150-450 [facility] Comment on above: Performed By: #### L IPID, TSH3, CMP, CBC #### [address] RBC (Bld) [#/Vol] 3.98 10*6/uL Normal 3.60-5.00 [facility] Comment on above: Performed By: #### L IPID, TSH3, CMP, CBC #### [address] WBC (Bld) [#/Vol] 6.0 10*3/uL Normal 3.8-11.6 [facility] Comment on above: Performed By: #### L IPID, TSH3, CMP, CBC #### [address] Comprehensive Metabolic Pane nory 09-03-2023 Albumin [Mass/Vol] 3.8 g/dL Normal 3.5-5.7 [facility] Comment on above: Performed By: #### L IPID, TSH3, CMP, CBC #### [address] Albumin/Globulin [Mass ratio] 1.7 {ratio} Normal [facility] Comment on above: Performed By: #### L IPID, TSH3, CMP, CBC #### [address] ALP [Catalytic activity/Vol] 72 U/L Normal 34-104 [facility] Comment on above: Performed By: #### L IPID, TSH3, CMP, CBC #### [address] ALT [Catalytic activity/Vol] 43 U/L Normal 7-52 [facility] Comment on above: Performed By: #### L IPID, TSH3, CMP, CBC #### [address] Anion gap [Moles/Vol] 8.9 mmol/L Normal 6.0-15.0 [facility] Comment on above: Performed By: #### L IPID, TSH3, CMP, CBC #### [address] AST [Catalytic activity/Vol] 23 U/L Normal 13-39 [facility] Comment on above: Performed By: #### L IPID, TSH3, CMP, CBC #### [address] Bilirubin [Mass/Vol] 1.2 mg/dL High 0.3-1.0 [facility] Comment on above: Performed By: #### L IPID, TSH3, CMP, CBC #### [address] Calcium [Mass/Vol] 9.5 mg/dL Normal 8.6-10.3 [facility] Comment on above: Performed By: #### L IPID, TSH3, CMP, CBC #### [place] [address] [place] Chloride [Moles/Vol] 107 mmol/L Normal 98-107 [facility] Comment on above: Performed By: #### L IPID, TSH3, CMP, CBC #### [place] [address] [place] CO2 [Moles/Vol] 30.0 mmol/L Normal 21.0-31.0 [facility] Comment on above: Performed By: #### L IPID, TSH3, CMP, CBC #### [place] [address] [place] Creatinine [Mass/Vol] 0.76 mg/dL Normal 0.60-1.20 [facility] Comment on above: Performed By: #### L IPID, TSH3, CMP, CBC #### [place] [address] [place] GFR/1.73 sq M.predicted MDRD (S/P/Bld) [Vol rate/Area] mL/min/{1.73_m2} Normal [facility] Comment on above: Performed By: #### L IPID, TSH3, CMP, CBC #### [address] [place] [address] [place] Globulin (S) [Mass/Vol] 2.2 g/dL Normal [facility] Comment on above: Performed By: #### L IPID, TSH3, CMP, CBC #### [facility] [address] Glucose [Mass/Vol] 79 mg/dL Normal 70-100 [facility] Comment on above: Result Comment: [place] Glucose Reference Range is dependent on time and content of last meal. Glucose of more than 200 mg/dL in a nonstressed, ambulatory subject supports the diagnosis of Diabetes Mellitus. ADA recommended reference range Performed By: #### L IPID, TSH3, CMP, CBC #### [address] Potassium [Moles/Vol] 3.9 mmol/L Normal 3.5-5.1 [facility] Comment on above: Performed By: #### L IPID, TSH3, CMP, CBC #### [address] Protein [Mass/Vol] 6.0 g/dL Low 6.4-8.9 [facility] Comment on above: Performed By: #### L IPID, TSH3, CMP, CBC #### [address] Sodium [Moles/Vol] 142 mmol/L Normal 136-145 [facility] Comment on above: Performed By: #### L IPID, TSH3, CMP, CBC #### [place] [address] [place] Urea nitrogen [Mass/Vol] 22 mg/dL Normal 7-25 [facility] Comment on above: Performed By: #### L IPID, TSH3, CMP, CBC #### [address] Lipid Panelon 09-03-2023 Cholesterol [Mass/Vol] 243 mg/dL High 140-200 [facility] Comment on above: Result Comment: Chol less than 200 mg/dl low risk Chol 201-239 mg/dl borderline risk Chol 240 mg/dl and greater high risk Performed By: #### L IPID, TSH3, CMP, CBC #### [facility] [address] Cholesterol in HDL [Mass/Vol] 98 mg/dL High 23-92 [facility] Comment on above: Result Comment: HDL CHOL ATP-III CLASSIFICATION Cardiovascular Risk HDL > or equal to 60 mg/dL LOW HDL < 40 mg/dL HIGH Performed By: #### L IPID, TSH3, CMP, CBC #### [facility] [address] Cholesterol.total/Ch olesterol in HDL [Mass ratio] 2.5 {ratio} Normal <5.0 [facility] Comment on above: Performed By: #### L IPID, TSH3, CMP, CBC #### [address] LDL Cholesterol,Calculat ed 121 mg/dL High 0-100 [facility] Comment on above: Result Comment: LDL ATP III CLASSIFICATION LDL less than 100 mg/dL Optimal LDL 100-129 mg/dL Near or above optimal LDL 130-159 mg/dL Borderline high LDL 160-189 mg/dL High LDL greater than 189 mg/dL Very high Performed By: #### L IPID, TSH3, CMP, CBC #### [address] Triglyceride w/Reflex 122 mg/dL Normal 0-149 [facility] Comment on above: Result Comment: TRIG ATP III CLASSIFICATION TRIG less than 150 mg/dL Normal TRIG 150-199 mg/dL Borderline high TRIG 200-500 mg/dL High TRIG greater than 500 mg/dL Very high Standard traceable to the Center for Disease Conrtrol and Prevention (CDC) test method. Performed By: #### L IPID, TSH3, CMP, CBC #### [address] VLDL CHOLESTEROL 24 mg/dL Normal [facility] Comment on above: Performed By: #### L IPID, TSH3, CMP, CBC #### [place] [address] [place] Thyroid Stimulating Hormoneo n 09-03-2023 TSH Qn 4.01 m[IU]/L Normal 0.45-5.33 [facility] Comment on above: Result Comment: PERF ORMED BY: [facility] [address] [place] [address] PATHOLOGIST BAG MACHINE ADJUSTER JODY SOLANO M.D. Performed By: #### L IPID, TSH3, CMP, CBC #### [facility] [address] [place] [id number] [facility] Complete Blood Count Auto Di ffon 07-08-2023 Basophils (Bld) [#/Vol] 0.116594657 10*3/uL Normal 0.0-0.2 10*3/uL [employer] Other Basophils/100 WBC (Bld) 0.900 % . % [employer] Other Eosinophils (Bld) [#/Vol] 0.390970014 10*3/uL Normal 0.0-0.45 10*3/uL [employer] Other Eosinophils/100 WBC (Bld) 1.100 % . % [employer] Other Erythrocyte distribution width (RBC) [Ratio] 14.000 % Normal 11.9-15.3 % [employer] Other Hematocrit (Bld) [Volume fraction] 37.700 % Normal 34.0-46.4 % [employer] Other Hemoglobin (Bld) [Mass/Vol] 12.292023 g/dL Normal 11.8-15.4 g/dL [employer] Other Lymphocytes (Bld) [#/Vol] 2.047016027 10*3/uL Normal 1.00-4.8 10*3/uL [employer] Other Lymphocytes/100 WBC (Bld) 35.100 % . % [employer] Other MCH (RBC) [Entitic mass] 33.3000 pg Normal 24.7-34.3 pg [employer] Other MCV (RBC) [Entitic vol] 99.7000 fL Normal 80-100 fL [employer] Other Monocytes (Bld) [#/Vol] 0.920553525 10*3/uL Normal 0.0-0.8 10*3/uL [employer] Other Monocytes/100 WBC (Bld) 10.000 % . % [employer] Other Neutrophils (Bld) [#/Vol] 3.022647543 10*3/uL Normal 1.8-7.7 10*3/uL [employer] Other Neutrophils/100 WBC (Bld) 52.900 % . % [employer] Other Platelet mean volume (Bld) [Entitic vol] 9.9000 fL Normal 6.3-10.7 fL [employer] Other Platelets (Bld) [#/Vol] 224 10*3/uL Normal 150-450 10*3/uL [employer] Other RBC (Bld) [#/Vol] 3.78 10*6/uL Normal 3.60-5.00 [employer] Other WBC (Bld) [#/Vol] 7.869482382 10*3/uL Normal 3.8 -11.6 10*3/uL [employer] Other Complete Blood Count Auto Diff 7.1 10*3/uL Normal 3.8-11.6 10*3/uL [employer] Other Complete Blood Count Auto Diff 33.4 g/dL Normal 32.0-35.0 g/dL [employer] Other Complete Blood Count Auto Diff 0.1 /100{WBC} Normal 0-0.5 /100{WBC} [employer] Other Comprehensive Metabolic Pane nory 07-08-2023 Albumin [Mass/Vol] 3.434473 g/dL Normal 3.5-5.7 g/dL N [facility] [employer] Other Albumin/Globulin [Mass ratio] 1.7 {ratio} [place] [facility] Other ALP [Catalytic activity/Vol] 140 U/L High 34-104 U/L [place] [facility] Other ALT [Catalytic activity/Vol] 71 U/L High 7-52 U/L [place] [facility] Other AST [Catalytic activity/Vol] 20 U/L Normal 13-39 U/L [employer] Other Bilirubin [Mass/Vol] 0.4261097 mg/dL Normal 0.3-1.0 mg /dL [place] [facility] Other Calcium [Mass/Vol] 9.0571666 mg/dL Normal 8.6-10 .3 mg/dL [employer] Other Chloride [Moles/Vol] 107 mmol/L Normal 98-107 mmol/L N [facility] Other CO2 [Moles/Vol] 30.23241277 mmol/L Normal 21.0-3 1.0 mmol/L [employer] Other Creatinine [Mass/Vol] 0.66003524 mg/dL Normal 0.60-1.20 mg/dL [employer] Other GFR/1.73 sq M.predicted MDRD (S/P/Bld) [Vol rate/Area] mL/min/{1.73_m2} [employer] Other Glucose [Mass/Vol] 89 mg/dL Normal 70-100 mg/dL [place] [facility] Other Potassium [Moles/Vol] 3.83646907 mmol/L Normal 3.5-5.1 mmol/L [employer] Other Protein [Mass/Vol] 6.874562 g/dL Low 6.4-8.9 g/dL N [facility] Other Sodium [Moles/Vol] 143 mmol/L Normal 136-145 mmol/L [employer] Other Urea nitrogen [Mass/Vol] 21 mg/dL Normal 7-25 mg/dL [employer] Other Comprehensive Metabolic Panel 2.2 g/dL [employer] Other Free T4 (Free Thyroxine)on 0 07-08-2023 Free T4 [Mass/Vol] 1.95802316 ng/dL High 0.61- 1.12 ng/dL [employer] Other Thyroid Antibodies TPO+Tg Ab on 07-08-2023 Thyroid Antibodies TPO+Tg Ab 11 0-34 [employer] Other Thyroid Antibodies TPO+Tg Ab <1.0 0.0-0.9 [employer] Other Thyroid Stimulating Hormoneo n 07-08-2023 TSH Qn 2.15033989952 m[IU]/L Normal 0.45-5 .33 u[iU]/mL [employer] Other Echocardiogramon 02-26-[address], [place] [address] TRANSTHORACIC ECHOCARDIOGRAM REPORT Patient Name: LAVONNE Bahena Physician: [id number] [facility]: 02/26/2023 Referring SHY WOLF Physician: MRN/PID: [id number] PCP: Suhas Garrett MD Accession/Order#: [id number] Department [facility] Location: Date of : 1935 Fellow: Gender: F Nurse: Admit Date: Dentist: Sheridan Lemus RDCS T Height: 157.48 cm CC Report to: Weight: 67.13 kg Study Type: Echocardiogram BSA: 1.68 m2 Blood Pressure: 122 /76 mmHg Diagnosis/ICD: I35.0-Nonrheumatic aortic (valve) stenosis; R01.1-Cardiac murmur, unspecified Indication: HTN, Hyperlipidemia, Overweight, Hypothyroid, Polymyalgia Rheumatica Procedure/CPT: Echo Complete w Full [id number] Study Detail: The following Echo studies were [...] mmHg PIEDV: 2.50 m/s PADP: 28.0 mmHg [id number] Shy Wolf MD, [facility] Electronically signed on 03/01/2023 at 2:16:46 PM Final Normal [facility] Office Visit (Cardiology)on 12-24-2022 Follow-up visit Diagnoses/Problems Assessed Aortic stenosis (424.1) (I35.0) Murmur, cardiac (785.2) (R01.1) Essential hypertension (401.9) (I10) Hyperlipidemia (272.4) (E78.5) Overweight with body mass index (BMI) of 27 to 27.9 in adult (278.02,V85.23) (E66.3,Z68.27) Never smoker Hypothyroidism (244.9) (E03.9) PMR (polymyalgia rheumatica) (725) (M35.3) Orders Aortic stenosis, Murmur, cardiac Echocardiogram; Status:Hold For - Scheduling,Retrospect bola Authorization; Requested for:[id number]; Essential hypertension, Hyperlipidemia Changed: From Aspirin EC 81 MG TBEC TAKE 1 TABLET To Aspirin 81 MG Oral Tablet Delayed Release TAKE 1 TABLET DAILY Overweight with body mass index (BMI) of 27 to 27.9 in adult Healthy Weight Tips; Status:Complete - Retrospective Authorization; Done: [id number] Some eating tips that can help you lose weight.; Status:Complete - Retrospective Authorization; Done: [id number] SocHx: Never smoker Tobacco Use Screening; Status:Complete; Done: [id number] Patient Instructions Please bring all medicines, vitamins, [...] is being tapered gradually Shy Wolf MD, [facility] Past Medical History Problems History of Carotid [...] Multi Vitamin Oral TabletTAKE 1 TABLET DAILY. [place]-3 Fish Oil 1000 MG Oral CapsuleTAKE 1 [...] negative for complaint. Vitals Vital Signs Recorded: [id number] 11:32AM Heart Rate68, R Radial Cjuibxfs110, RUE, Sitting Usiurgfmn78, RUE, Sitting Height5 ft 2 in Gfivgs565 lb BMI Exxvopcwww80.07 kg/m2 BSA Calculated1.68 Tobacco Useb) No PHQ-2 [...] distress a (more content not included)... Normal [employer] Tobacco Screening.on 023 Adult depression screening assessment No [facility] 250 DO Work Phone: Fall risk assessment a) No falls within the last year [facility] 250 DO Work Phone: Tobacco use status CPHS b) No [facility] 250 DO Work Phone: Complete Blood Count Auto Di ffon 02-22-2022 Basophils (Bld) [#/Vol] 0.192956300 10*3/uL Normal 0.0-0.2 10*3/uL [employer] Other Basophils/100 WBC (Bld) 0.700 % . % [employer] Other Eosinophils (Bld) [#/Vol] 0.359639163 10*3/uL Normal 0.0-0.45 10*3/uL [employer] Other Eosinophils/100 WBC (Bld) 0.700 % . % [employer] Other Erythrocyte distribution width (RBC) [Ratio] 13.500 % Normal 11.9-15.3 % [employer] Other Hematocrit (Bld) [Volume fraction] 38.400 % Normal 34.0-46.4 % [employer] Other Hemoglobin (Bld) [Mass/Vol] 12.583416 g/dL Normal 11.8-15.4 g/dL [employer] Other Lymphocytes (Bld) [#/Vol] 0.661512630 10*3/uL Low 1.00-4.8 10*3/uL [employer] Other Lymphocytes/100 WBC (Bld) 12.600 % . % [employer] Other MCH (RBC) [Entitic mass] 33.7000 pg Normal 24.7-34.3 pg [employer] Other MCV (RBC) [Entitic vol] 100.4000 fL High 80-100 fL [employer] Other Monocytes (Bld) [#/Vol] 0.565186225 10*3/uL Normal 0.0-0.8 10*3/uL [employer] Other Monocytes/100 WBC (Bld) 6.800 % . % [employer] Other Neutrophils (Bld) [#/Vol] 5.680427914 10*3/uL Normal 1.8-7.7 10*3/uL [employer] Other Neutrophils/100 WBC (Bld) 79.200 % . % [employer] Other Platelet mean volume (Bld) [Entitic vol] 9.4000 fL Normal 6.3-10.7 fL [employer] Other Platelets (Bld) [#/Vol] 223 10*3/uL Normal 150-450 10*3/uL [employer] Other RBC (Bld) [#/Vol] 3.6612866033 10*6/uL Normal 3. 60-5.00 10*6/uL [employer] Other WBC (Bld) [#/Vol] 6.740136900 10*3/uL Normal 3.8 -11.6 10*3/uL [employer] Other Complete Blood Count Auto Diff 6.6 10*3/uL Normal 4.5-11.0 10*3/uL [employer] Other Complete Blood Count Auto Diff 33.6 g/dL Normal 32.0-35.0 g/dL [employer] Other Complete Blood Count Auto Diff 0.1 % Normal 0-0.5 % [employer] Other Erythrocyte Sedimentation Ra amy 02-22-2022 ESR (Bld) [Velocity] 28 mm/h Normal 0-29 [place] [facility] Other [facility] Carotid Artery Dupl ex Ultrasoundon 02-21-2022 US.doppler Carotid arteries [place] [id number] [place] Work Phone: COVID Quick Testingon 2021 Result Positive [place] [facility] Other Falls Screening (Age 18+)on 12-26-2021 Fall risk assessment a) No falls within the last [facility] 250 DO Work Phone: Office Visit (Cardiology)on [...] Multi Vitamin Oral TabletTAKE 1 TABLET DAILY. [place] 3 500 [place] 1 CAPSULE Daily predniSONE 5 MG Oral Gecuzg6IY 7.5MG BY MOUTH ONE DAILY ALTERNATING EVERY OTHER DAY Allergies Medication amoxicillin Hives;; Recorded By: Kayla Orr; 10/17/2021 10:50:34 AM Dilantin CAPS Rash; Recorded By: Kayla Orr; 10/17/2021 10:50:34 AM Fosamax eye pain; Recorded By: Kayla Orr; 10/17/2021 10:50:34 AM Depakote ER TB24 Recorded By: Kayla Orr; 10/17/2021 10:50:34 AM Vitals Vital Signs Recorded: [id number] 11:04AMRecorded: 71Gsx0592 11:00AM Heart Rate56, R Spkoxq37, R Radial Zhlacqjp364, LUE, Cycgtxz639, RUE Fbczmrayy69, LUE, Mvwaxbc77, RUE Height5 ft 2 in5 ft 2 in Wepeqz541 lb 143 lb BMI Psejxcubpf71.16 kg/m226.16 kg/m2 BSA Calculated1.661.66 Falls Screening (Age 18+)a) No falls within the last year Signatures Electronically signed by : Shy Wolf MD; Dec 26 2021 4:02PM EST (Author) Normal [employer] Tobacco Screening.on 022 Adult depression screening assessment No [facility] Work Phone: Fall risk assessment a) No falls within the last year [facility] Work Phone: Tobacco use status CPHS b) No [facility] Work Phone: Vital Signs Date Time Vital Sign Value 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 Facility 01-14-2025 11:07-0400 Body height 157.5 cm Shy Wlof MD Work Phone: [facility] 01-14-2025 11:07-0400 Body mass index (BMI) [Ratio] 27.44 kg/m2 Shy Wolf MD Work Phone: [facility] 01-14-2025 11:07-0400 Body weight 68.04 kg Shy Wolf MD Work Phone: [facility] 01-14-2025 11:07-0400 Diastolic blood pressure 78 mm[Hg] Shy Wolf MD Work Phone: [facility] 01-14-2025 11:07-0400 Heart rate 60 /min Shy Wolf MD Work Phone: [facility] 01-14-2025 11:07-0400 Systolic blood pressure 168 mm[Hg] Shy Wolf MD Work Phone: [facility] 12-21-2024 12:30-0400 Body height 157.[address] 12-21-2024 12:30-0400 Body mass index (BMI) [Ratio] 26.52 kg/m2 [address] 12-21-2024 12:30-0400 Body weight 65.[address] 12-21-2024 12:30-0400 Diastolic blood pressure 68 mm[Hg] [address] 12-21-2024 12:30-0400 Systolic blood pressure 146 mm[Hg] [address] 12-08-2024 13:56-0400 Diastolic blood pressure 70 mm[Hg] Reuben Burns [employer] Work Phone: [facility] 12-08-2024 13:56-0400 Systolic blood pressure 142 mm[Hg] Reuben Burns [employer] Work Phone: [facility] 12-07-2024 14:59-0400 Body height 157.5 cm Reuben Burns [employer] Work Phone: [facility] 12-07-2024 14:59-0400 Body mass index (BMI) [Ratio] 26.45 kg/m2 Reuben Burns [employer] SAL[employer] Work Phone: [facility] 12-07-2024 14:59-0400 Body weight 65.59 kg Reubenmayo Burns KEE[employer] SAL[employer]ERSON Work Phone: [facility] 12-07-2024 14:59-0400 Heart rate 62 /min Reubenmayo Burns KEE[employer] SAL[employer]ERSON Work Phone: [facility] 04-16-2024 13:16-0500 Body height 157.5 cm Shy Wolf MD Work Phone: [facility] 04-16-2024 13:16-0500 Body mass index (BMI) [Ratio] 26.67 kg/m2 Shy Wolf MD Work Phone: [facility] 04-16-2024 13:16-0500 Body weight 66.13 kg Shy Wolf MD Work Phone: [facility] 04-16-2024 13:16-0500 Diastolic blood pressure 62 mm[Hg] Shy Wolf MD Work Phone: [facility] 04-16-2024 13:16-0500 Heart rate 62 /min Shy Wolf MD Work Phone: [facility] 04-16-2024 13:16-0500 Systolic blood pressure 120 mm[Hg] Shy Wolf MD Work Phone: [facility] 02-11-2024 12:28-0400 Body height 157.[address] 02-11-2024 12:28-0400 Body mass index (BMI) [Ratio] 27.98 kg/m2 [address] 02-11-2024 12:28-0400 Body weight 69.[address] 02-11-2024 12:28-0400 Diastolic blood pressure 76 mm[Hg] [address] 02-11-2024 12:28-0400 Systolic blood pressure 116 mm[Hg] [address] 07-04-2023 11:15-0500 Body height 157.48 cm Suhas Garrett Other [employer] [facility] [employer] Other 07-04-2023 11:15-0500 Body mass index (BMI) [Ratio] 28.53 kg/m2 Suhas Garrett Other [employer] [facility] [employer] Other 07-04-2023 11:15-0500 Body weight 70.76 kg Suhas Garrett Other [employer] [facility] [employer] Other 07-04-2023 11:15-0500 Diastolic blood pressure 84 mm[Hg] Suhas Garrett Other [employer] [facility] [employer] Other 07-04-2023 11:15-0500 Respiratory rate 20 /min Suhas Garrett Other [employer] [facility] [employer] Other 07-04-2023 11:15-0500 SaO2% (BldA) [Mass fraction] 99 % Suhas Garrett Other [employer] Other 07-04-2023 11:15-0500 Systolic blood pressure 150 mm[Hg] Suhas Garrett Other [employer] Other 06-19-2023 11:09-0500 Body height 157.5 cm Shy Wlof MD Work Phone: [facility] 06-19-2023 11:09-0500 Body mass index (BMI) [Ratio] 27.98 kg/m2 Shy Wolf MD Work Phone: [facility] 06-19-2023 11:09-0500 Body weight 69.4 kg Shy Wolf MD Work Phone: [facility] 06-19-2023 11:09-0500 Diastolic blood pressure 76 mm[Hg] Shy Wolf MD Work Phone: [facility] 06-19-2023 11:09-0500 Heart rate 60 /min Shy Wolf MD Work Phone: [facility] 06-19-2023 11:09-0500 Systolic blood pressure 120 mm[Hg] Shy Wolf MD Work Phone: [facility] 05-30-2023 11:00-0500 Body height 157.48 cm Suhas Garrett Other [employer] Other 05-30-2023 11:00-0500 Body mass index (BMI) [Ratio] 27.8 kg/m2 Suhas Garrett Other [employer] Other 05-30-2023 11:00-0500 Body weight 68.95 kg Suhas Garrett Other [employer] Other 05-30-2023 11:00-0500 Diastolic blood pressure 80 mm[Hg] Suhas Ugo Other [employer] Other 05-30-2023 11:00-0500 Respiratory rate 18 /min Suhas Ugo Other [employer] Other 05-30-2023 11:00-0500 SaO2% (BldA) [Mass fraction] 96 % Suhas Garrett Other [employer] Other 05-30-2023 11:00-0500 Systolic blood pressure 122 mm[Hg] Suhas Garrett Other [employer] Other 02-28-2023 10:30-0400 Body height 157.48 cm Suhas Ugo Other [employer] Other 02-28-2023 10:30-0400 Body mass index (BMI) [Ratio] 27.98 kg/m2 Suhas Ugo Other [employer] Other 02-28-2023 10:30-0400 Body weight 69.4 kg Suhas Garrett Other [employer] Other 02-28-2023 10:30-0400 Diastolic blood pressure 76 mm[Hg] Suhas Garrett Other [employer] Other 02-28-2023 10:30-0400 Respiratory rate 16 /min Suhas Garrett Other [employer] Other 02-28-2023 10:30-0400 SaO2% (BldA) [Mass fraction] 91 % Suhas Garrett Other [employer] Other 02-28-2023 10:30-0400 Systolic blood pressure 134 mm[Hg] Suhas Garrett Other [facility] [employer] Other 12-24-2022 11:32-0400 Body height 157.48 cm Suhas Dalton Ugo Work Phone: [facility] 250 DO Work Phone: 12-24-2022 11:32-0400 Body mass index (BMI) [Ratio] 27.07 kg/m2 Suhas Dalton Gaeladan Work Phone: [facility] 250 DO Work Phone: 12-24-2022 11:32-0400 Body surface area Derived from formula 1.68 m2 Suhas Garrett Work Phone: [facility] 250 DO Work Phone: 12-24-2022 11:32-0400 Body weight 67.13 kg Suhas Dalton Gaeladan Work Phone: [facility] 250 DO Work Phone: 12-24-2022 11:32-0400 Diastolic blood pressure 76 mm[Hg] Suhas Dalton Garrett Work Phone: [facility] 250 DO Work Phone: 12-24-2022 11:32-0400 Heart rate 68 /min Suhas Dalton Garrett Work Phone: [facility] 250 DO Work Phone: 12-24-2022 11:32-0400 Systolic blood pressure 118 mm[Hg] Suhas Mayos Work Phone: [facility] 250 DO Work Phone: 12-06-2022 10:30-0400 Body height 157.48 cm Suhas Garrett Other [employer] Other 12-06-2022 10:30-0400 Body mass index (BMI) [Ratio] 27.98 kg/m2 Suhas Garrett Other [employer] Other 12-06-2022 10:30-0400 Body weight 69.4 kg Suhas Garrett Other [employer] Other 12-06-2022 10:30-0400 Diastolic blood pressure 70 mm[Hg] Suhas Garrett Other [employer] Other 12-06-2022 10:30-0400 Respiratory rate 16 /min Suhas Garrett Other [employer] Other 12-06-2022 10:30-0400 SaO2% (BldA) [Mass fraction] 98 % Suhas Garrett Other [employer] Other 12-06-2022 10:30-0400 Systolic blood pressure 146 mm[Hg] Suhas Garrett Other [employer] Other 09-20-2022 11:45-0400 Body height 157.48 cm Suhas Garrett Other [employer] Other 09-20-2022 11:45-0400 Body mass index (BMI) [Ratio] 26.34 kg/m2 Suhas Garrett Other [employer] Other 09-20-2022 11:45-0400 Body weight 65.32 kg Suhas Garrett Other [employer] Other 09-20-2022 11:45-0400 Diastolic blood pressure 70 mm[Hg] Suhas Mayoadan Other [employer] Other 09-20-2022 11:45-0400 Respiratory rate 16 /min Suhas Mayoadan Other [employer] Other 09-20-2022 11:45-0400 SaO2% (BldA) [Mass fraction] 98 % Suhasraquel Mayoadan Other [employer] Other 09-20-2022 11:45-0400 Systolic blood pressure 130 mm[Hg] Suhas Ugo Other [employer] Other 07-22-2022 11:30-0500 Body height 157.48 cm Suhas Garrett Other [employer] Other 07-22-2022 11:30-0500 Body mass index (BMI) [Ratio] 26.85 kg/m2 Suhas Garrett Other [employer] Other 07-22-2022 11:30-0500 Body weight 66.59 kg Suhas Garrett Other [employer] Other 07-22-2022 11:30-0500 Diastolic blood pressure 70 mm[Hg] Suhas Ugo Other [employer] Other 07-22-2022 11:30-0500 Respiratory rate 16 /min Suhas Ugo Other [employer] Other 07-22-2022 11:30-0500 SaO2% (BldA) [Mass fraction] 98 % Suhas Garrett Other [employer] Other 07-22-2022 11:30-0500 Systolic blood pressure 122 mm[Hg] Suhas Ugo Other [employer] Other 04-17-2022 11:45-0500 Body height 157.48 cm Suhas Ugo Other [employer] Other 04-17-2022 11:45-0500 Body mass index (BMI) [Ratio] 26.88 kg/m2 Suhas Garrett Other [employer] Other 04-17-2022 11:45-0500 Body weight 66.68 kg Suhas Garrett Other [employer] Other 04-17-2022 11:45-0500 Diastolic blood pressure 72 mm[Hg] Suhas Garrett Other [employer] Other 04-17-2022 11:45-0500 Respiratory rate 16 /min Suhas Mayoadan Other [employer] Other 04-17-2022 11:45-0500 SaO2% (BldA) [Mass fraction] 99 % Suhas Garrett Other [employer] Other 04-17-2022 11:45-0500 Systolic blood pressure 138 mm[Hg] Suhas Garrett Other [employer] Other 02-22-2022 10:15-0400 Body height 157.48 cm Suhas Garrett Other [employer] Other 02-22-2022 10:15-0400 Body mass index (BMI) [Ratio] 27.07 kg/m2 Suhas Garrett Other [employer] Other 02-22-2022 10:15-0400 Body weight 67.13 kg Suhas Garrett Other [employer] Other 02-22-2022 10:15-0400 Diastolic blood pressure 70 mm[Hg] Suhas Garrett Other [employer] Other 02-22-2022 10:15-0400 Respiratory rate 16 /min Suhas Garrett Other [employer] Other 02-22-2022 10:15-0400 SaO2% (BldA) [Mass fraction] 97 % Suhas Garrett Other [employer] Other 02-22-2022 10:15-0400 Systolic blood pressure 122 mm[Hg] Suhas Garrett Other [employer] Other 02-21-2022 10:45-0400 70 1 Suhas Garrett Work Phone: [address] Work Phone: Comment on above: [id number] 02-14-2022 15:45-0400 Body height 157.48 cm Suhas Garrett Other [employer] Other 02-14-2022 15:45-0400 Body mass index (BMI) [Ratio] 26.7 kg/m2 Suhas Garrett Other [employer] Other 02-14-2022 15:45-0400 Body weight 66.23 kg Suhas Garrett Other [employer] Other 02-14-2022 15:45-0400 Diastolic blood pressure 72 mm[Hg] Suhas Garrett Other [employer] Other 02-14-2022 15:45-0400 Respiratory rate 16 /min Suhas Garrett Other [facility] [employer] Other 02-14-2022 15:45-0400 SaO2% (BldA) [Mass fraction] 96 % Suhas Garrett Other [facility] [employer] Other 02-14-2022 15:45-0400 Systolic blood pressure 132 mm[Hg] Suhas Garrett Other [employer] Other 12-26-2021 11:04-0400 Body height 157.48 cm Suhas Garrett Work Phone: [facility] 250 DO Work Phone: 12-26-2021 11:04-0400 Body mass index (BMI) [Ratio] 26.16 kg/m2 Suhas Garrett Work Phone: [facility] [address] DO Work Phone: 12-26-2021 11:04-0400 Body surface area Derived from formula 1.66 m2 Suhas Garrett Work Phone: [facility] [address] DO Work Phone: 12-26-2021 11:04-0400 Body weight 64.86 kg Suhas Garrett Work Phone: [facility] 250 DO Work Phone: 12-26-2021 11:04-0400 Diastolic blood pressure 68 mm[Hg] Suhas Hoffman Ugo Work Phone: [facility] 250 DO Work Phone: 12-26-2021 11:04-0400 Heart rate 56 /min Suhas Dalton Garrett Work Phone: [facility] 250 DO Work Phone: 12-26-2021 11:04-0400 Systolic blood pressure 126 mm[Hg] Suhas Garrett Work Phone: [facility] 250 DO Work Phone: 12-26-2021 11:00-0400 Diastolic blood pressure 70 mm[Hg] Suhas Garrett Work Phone: [facility] 250 DO Work Phone: 12-26-2021 11:00-0400 Systolic blood pressure 130 mm[Hg] Suhas Garrett Work Phone: [facility] 250 DO Work Phone: 12-13-2021 11:39-0400 Diastolic blood pressure 80 mm[Hg] Suhas Garrett Work Phone: [facility] Work Phone: 12-13-2021 11:39-0400 Systolic blood pressure 170 mm[Hg] Suhas Garrett Work Phone: [facility] Work Phone: 12-13-2021 11:22-0400 Diastolic blood pressure 80 mm[Hg] Suhas Garrett Work Phone: [facility] Work Phone: 12-13-2021 11:22-0400 Systolic blood pressure 158 mm[Hg] Suhas Garrett Work Phone: [facility] Work Phone: 12-13-2021 11:17-0400 Body height 157.48 cm Suhas Garrett Work Phone: [facility] Work Phone: 12-13-2021 11:17-0400 Body mass index (BMI) [Ratio] 26.52 kg/m2 Suhas Garrett Work Phone: [facility] Work Phone: 12-13-2021 11:17-0400 Body surface area Derived from formula 1.67 m2 Suhas Garrett Work Phone: [facility] Work Phone: 12-13-2021 11:17-0400 Body weight 65.77 kg Suhas Garrett Work Phone: [facility] Work Phone: 12-13-2021 11:17-0400 Diastolic blood pressure 80 mm[Hg] Suhas Garrett Work Phone: [facility] Work Phone: 12-13-2021 11:17-0400 Heart rate 60 /min Suhas Garrett Work Phone: [facility] Work Phone: 12-13-2021 11:17-0400 Systolic blood pressure 160 mm[Hg] Suhas Garrett Work Phone: [facility] Work Phone: 10-01-2021 13:30-0400 Body height 157.48 cm Suhas Garrett Other [employer] Other 10-01-2021 13:30-0400 Body mass index (BMI) [Ratio] 26.34 kg/m2 Suhas Garrett Other [employer] Other 10-01-2021 13:30-0400 Body weight 65.32 kg Suhas Garrett Other [employer] Other 10-01-2021 13:30-0400 Diastolic blood pressure 72 mm[Hg] Suhas Garrett Other [employer] Other 10-01-2021 13:30-0400 Respiratory rate 18 /min Suhas Garrett Other [employer] Other 10-01-2021 13:30-0400 SaO2% (BldA) [Mass fraction] 99 % Suhasraquel Mayoadan Other [employer] Other 10-01-2021 13:30-0400 Systolic blood pressure 130 mm[Hg] Suhas Garrett Other [employer] Other 08-02-2021 13:30-0500 Body height 157.48 cm Suhas Garrett Other [employer] Other 08-02-2021 13:30-0500 Body mass index (BMI) [Ratio] 26.52 kg/m2 Suhas Garrett Other [employer] Other 08-02-2021 13:30-0500 Body weight 65.77 kg Suhas Garrett Other [employer] Other 08-02-2021 13:30-0500 Diastolic blood pressure 70 mm[Hg] Suhas Garrett Other [employer] Other 08-02-2021 13:30-0500 Respiratory rate 16 /min Suhas Garrett Other [employer] Other 08-02-2021 13:30-0500 SaO2% (BldA) [Mass fraction] 99 % Suhas Garrett Other [employer] Other 08-02-2021 13:30-0500 Systolic blood pressure 118 mm[Hg] Suhas Garrett Other [employer] Other 04-26-2021 13:30-0500 Body height 157.48 cm Suhas Garrett Other [employer] Other 04-26-2021 13:30-0500 Body mass index (BMI) [Ratio] 25.97 kg/m2 Suhas Garrett Other [employer] Other 04-26-2021 13:30-0500 Body weight 64.41 kg Suhas Garrett Other [employer] Other 04-26-2021 13:30-0500 Diastolic blood pressure 74 mm[Hg] Suhas Garrett Other [employer] Other 04-26-2021 13:30-0500 Respiratory rate 17 /min Suhas Garrett Other [employer] Other 04-26-2021 13:30-0500 SaO2% (BldA) [Mass fraction] 98 % Suhas Garrett Other [employer] Other 04-26-2021 13:30-0500 Systolic blood pressure 120 mm[Hg] Suhas Garrett Other [employer] Other Encounters Encounter Date Encounter Type Care Provider Facility Start: 01-14-2025 End: 01-14-2025 Office outpatient visit 25 minutes Shy Wolf MD Work Phone: [facility] Comment on above: Nonrheumatic aortic valve stenosis (Primary Dx); 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; Hyperlipidemia, unspecified hyperlipidemia type; PMR (polymyalgia rheumatica) (Multi); Hypothyroidism, unspecified type; BMI 27.0-27.9,adult; Never smoked any substance; Overweight Start: 01-14-2025 End: 01-14[facility] Start: 12-21-2024 End: 12-21-2024 Subsequent hospital visit by physician Susie Baker Echo/Vasc Room 2 [facility] Comment on above: Aortic valve stenosi s, etiology of cardiac valve disease unspecified Start: 12-21-2024 End: 12-21-2024 ambulatory [facility] Start: 12-07-2024 End: 12-07-2024 Office outpatient visit 15 minutes Reubenmayo Burns [employer] SALESP[employer] Work Phone: [facility] Comment on above: 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 (Primary Dx); BMI 26.0-26.9,adult Start: 12-07-2024 End: 12-07-[address] [facility] Ambulatory Start: 10-25-2024 End: 10-25-2024 ambulatory Gloria Weston MD Facility: [facility] Start: 09-13-2024 End: 09-13-2024 ambulatory Gloria Weston MD Facility: [facility] Start: 07-28-2024 End: 07-28-2024 ambulatory Suhas Garrett Facility:[facility] Start: 05-25-2024 End: 05-25-2024 ambulatory uShas Garrett Facility:[facility] Start: 04-16-2024 End: 04-16-2024 Office outpatient visit 25 minutes Shy Wolf MD Work Phone: [facility] Comment on above: Aortic valve stenosi s, etiology of cardiac valve disease unspecified (Primary Dx); Essential hypertension; Hyperlipidemia, unspecified hyperlipidemia type; Never smoked any substance; BMI 26.0-26.9,adult; Hypothyroidism, unspecified type Start: 04-16-2024 End: 04-16-2024 ambulatory [facility] Ambulatory Start: 02-23-2024 End: 02-23-2024 ambulatory Gloria Weston MD Facility: [facility] Start: 02-11-2024 End: 02-11-2024 Subsequent hospital visit by physician Susie Baker Echo/Vasc Room 2 [facility] Comment on above: Nonrheumatic aortic valve stenosis; Aortic valve stenosis, etiology of cardiac valve disease unspecified Start: 02-11-2024 End: 02-11-2024 ambulatory [facility] Start: 11-24-2023 End: 11-24-2023 ambulatory Gloria Weston MD Facility:[facility] Start: 11-17-2023 End: 11-17-2023 ambulatory Gloria Weston MD Facility:[facility] Start: 10-14-2023 End: 10-14-2023 ambulatory Suhas Garrett Facility:[facility] Start: 09-03-2023 End: 09-03-2023 ambulatory Suhas Garrett Facility:[facility] Start: 07-18-2023 End: 07-18-2023 ambulatory Suhas Garrett Other [employer] Other Start: 07-18-2023 Telephone encounter Suhas Garrett [facility] Start: 07-15-2023 End: 07-15-2023 ambulatory Suhas Garrett Other [employer] Other Start: 07-15-2023 Telephone encounter Suhas Garrett [facility] Start: 07-10-2023 End: 07-10-2023 ambulatory Suhas Garrett Other [employer] Other Start: 07-10-2023 Telephone encounter Suhas Garrett [facility] Start: 07-07-2023 End: 07-07-2023 ambulatory Suhas Garrett Other [employer] Other Start: 07-07-2023 Telephone encounter Suhas Mayos [facility] Start: 07-04-2023 End: 07-04-2023 ambulatory Suhas Garrett Other [employer] Other Start: 07-04-2023 Office outpatient vi sit 15 minutes Suhas Garrett [facility] Start: 06-19-2023 End: 06-19-2023 ambulatory Suhas Garrett Other [employer] Other Start: 06-19-2023 Telephone encounter Suhas Garrett [facility] Start: 06-19-2023 End: 06-19-2023 Office outpatient visit 25 minutes Shy Wolf MD Work Phone: [facility] Comment on above: Aortic valve stenosi s, etiology of cardiac valve disease unspecified; Essential hypertension; Hyperlipidemia, unspecified hyperlipidemia type; Never smoked any substance Start: 05-30-2023 End: 05-30-2023 ambulatory Suhas Garrett Other [employer] Other Start: 05-30-2023 Office outpatient vi sit 25 minutes Suhas Garrett [facility] Start: 05-28-2023 End: 05-28-2023 ambulatory Suhas Garrett Other [employer] Other Start: 05-28-2023 Telephone encounter Suhas Garrett [facility] Start: 04-23-2023 End: 04-23-2023 ambulatory Suhas Garrett Other [employer] Other Start: 04-23-2023 Telephone encounter Suhas Garrett [facility] Start: 04-18-2023 End: 04-18-2023 ambulatory Suhas Garrett Other [employer] Other Start: 04-18-2023 Telephone encounter Suhas Garrett [facility] Start: 03-02-2023 Chart Update Suhas Garrett Work Phone: [facility] 250 DO Work Phone: Start: 02-28-2023 End: 02-28-2023 ambulatory Suhas Garrett Other [employer] Other Start: 02-28-2023 Office outpatient vi sit 15 minutes Suhas Garrett [facility] Start: 02-26-[address] Suhas Garrett Facility:[id number] Start: 01-27-2023 End: 01-27-2023 ambulatory Suhas Garrett Other [employer] Other Start: 01-27-2023 Telephone encounter Suhas Garrett [facility] Start: 12-24-2022 Office outpatient vi sit 25 minutes Suhas Garrett Work Phone: [facility] 250 DO Work Phone: Start: 12-24-[address] Shy Parkahim Facility: Start: 12-06-2022 End: 12-06-2022 ambulatory Suhas Garrett Other [employer] Other Start: 12-06-2022 Office outpatient vi sit 15 minutes Suhas Garrett [facility] Start: 09-20-2022 End: 09-20-2022 ambulatory Suhas Garrett Other [employer] Other Start: 09-20-2022 Office outpatient vi sit 15 minutes Suhas Garrett [facility] Start: 08-14-2022 End: 08-14-2022 ambulatory Suhas Garrett Other [employer] Other Start: 08-14-2022 Telephone encounter Suhas Garrett [facility] Start: 07-22-2022 End: 07-22-2022 ambulatory Suhas Garrett Other [employer] Other Start: 07-22-2022 Office outpatient vi sit 15 minutes Suhas Garrett [facility] Start: 04-17-2022 End: 04-17-2022 ambulatory Suhas Garrett Other [employer] Other Start: 04-17-2022 Office outpatient vi sit 15 minutes Suhas Garrett [facility] Start: 04-10-2022 End: 04-10-2022 ambulatory Suhas Gaeladan Other [employer] Other Start: 04-10-2022 Telephone encounter Suhas Ugo [facility] Start: 04-03-2022 End: 04-03-2022 ambulatory Suhas Mayoadan Other [employer] Other Start: 04-03-2022 Telephone encounter Suhas Garrett [facility] Start: 04-02-2022 End: 04-02-2022 ambulatory Suhas Garrett Other [employer] Other Start: 04-02-2022 Telephone encounter Suhas Garrett [facility] Start: 02-26-2022 End: 02-26-2022 ambulatory Suhas Mayoadan Other [employer] Other Start: 02-26-2022 Telephone encounter Suhasraquel Garrett [facility] Start: 02-25-2022 End: 02-25-2022 ambulatory Suhas Mayoadan Other [employer] Other Start: 02-25-2022 Telephone encounter Suhasraquel Garrett [facility] Start: 02-22-2022 End: 02-22-2022 ambulatory Suhas Mayoadan Other [employer] Other Start: 02-22-2022 Office outpatient vi sit 25 minutes Suhas Garrett [facility] Start: 02-21-2022 Patient encounter procedure Suhas Garrett Work Phone: [facility] [address] [place] Work Phone: Start: 02-20-2022 End: 02-21-2022 ambulatory MAYO CARBAJAL Facility:[facility] Start: 02-14-2022 End: 02-14-2022 ambulatory Suhas Garrett Other [employer] Other Start: 02-14-2022 Office outpatient vi sit 25 minutes Suhas Garrett [facility] Start: 01-11-2022 End: 01-11-2022 ambulatory Suhas Garrett Other [employer] Other Start: 01-11-2022 Nursing evaluation o f patient and report Suhas Garrett [facility] Start: 01-11-2022 Telephone encounter Suhas Garrett [facility] Start: 12-26-2021 Office outpatient vi sit 10 minutes Suhas Garrett Work Phone: [facility] 250 DO Work Phone: Start: 12-26-[address] Suhas Garrett Facility: Start: 12-20-2021 End: 12-20-2021 ambulatory Suhas Garrett Other [employer] Other Start: 12-20-2021 Telephone encounter Suhas Garrett [facility] Start: 12-13-2021 Office outpatient vi sit 25 minutes Suhas Garrett Work Phone: [facility] Work Phone: Start: 11-02-2021 End: 11-02-2021 ambulatory Suhas Garrett Other [employer] Other Start: 11-02-2021 Telephone encounter Suhas Garrett [facility] Start: 10-01-2021 End: 10-01-2021 ambulatory Suhas Garrett Other [employer] Other Start: 10-01-2021 Office outpatient vi sit 15 minutes Suhas Garrett [facility] Start: 09-10-2021 End: 09-10-2021 ambulatory Suhas Garrett Other [employer] Other Start: 09-10-2021 Telephone encounter Suhas Garrett [facility] Start: 08-20-2021 End: 08-20-2021 ambulatory Suhas Garrett Other [employer] Other Start: 08-20-2021 Telephone encounter Suhas Garrett [facility] Start: 08-02-2021 End: 08-02-2021 ambulatory Suhasraquel Garrett Other [employer] Other Start: 08-02-2021 Office outpatient vi sit 15 minutes Suhas Garrett [facility] Start: 07-25-2021 End: 07-25-2021 ambulatory Suhasraquel Garrett Other [employer] Other Start: 07-25-2021 Telephone encounter Suhas Garrett [facility] Start: 05-08-2021 End: 05-08-2021 ambulatory Suhas Garrett Other [employer] Other Start: 05-08-2021 Telephone encounter Suhas Garrett [facility] Start: 04-26-2021 End: 04-26-2021 ambulatory Suhasraquel Garrett Other [employer] Other Start: 04-26-2021 Office outpatient vi sit 25 minutes Suhas Garrett [facility] Procedures Date Procedure Procedure Detail 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 Start: 12-21-2024 Echo tthrc r-t 2d w/ wom-mode compl spec&colr d Shy Wolf MD Work Phone: Start: 02-26-2023 Echocardiography Suhas Garrett Work Phone: Start: 02-21-2022 Echocardiography Suhas Garrett Work Phone: Appendectomy Suhas Garrett Work Phone: Cholecystectomy Suhas Garrett Work Phone: Operation on ovary Suhas Hoffman Bernie uns Work Phone: Thyroidectomy Suhas Garrett Work Phone: Total colonoscopy Suhas Hoffman Viktor ns Work Phone: Plan of Treatment Date Care Activity Detail Author Start: 05-12-2028 DTaP/Tdap/Td Vaccines (2 - Td or Tdap) DTaP/Tdap/Td Vaccines (2 - Td or Tdap) [facility] Start: 01-26-2026 End: 01-26-2026 Patient encounter procedure 01/26/2026 11:00 AM EDT Office Visit [facility] [address] [place] [address] Shy Wolf MD [address] [place] [address] [facility] Start: 12-21-2025 Echocardiography Echocardiogram [facility] Start: 12-20-2025 End: 12-20-2025 Patient encounter procedure 12/20/2025 10:[address] [facility] [address] [place] [address] [facility] Start: 12-14-2025 End: 01-14-2027 US Heart Transthoracic Transthoracic Echo Complete Echocardiography Routine Nonrheumatic aortic valve stenosis Expected: 12/14/2025 (Approximate), Expires: 01/14/2027 [facility] Service Area Work Phone: Comment on above: Expected: 12/14/2025 (Approximate), Expi res: 01/14/2027 Start: 08-07-2025 Medicare Annual Wellness Visit Medicare Annual Wellness Visit (AWV) [facility] Start: 02-10-2025 Echocardiography Echocardiogram [facility] Start: 02-07-2025 Influenza vaccination Influenza Vaccine (#1) [facility] Start: 01-14-2025 End: 04-16-2026 US Heart Transthoracic Transthoracic Echo Complete Echocardiography Routine Aortic valve stenosis, etiology of cardiac valve disease unspecified Expected: 01/14/2025 (Approximate), Expires: 04/16/2026 [facility] Service Area Work Phone: Comment on above: Expected: 01/14/2025 (Approximate), Expi res: 04/16/2026 Start: 01-14-2025 End: 01-14-2025 Patient encounter procedure 01/14/2025 11:00 AM EDT Office Visit [address] [place] [address] Shy Wolf MD [address] [place], [place] [id number] [facility] Start: 12-21-2024 End: 12-21-2024 Patient encounter procedure 12/21/2024 12:30 PM EDT Appointment [place] [address] [place] [address] [facility] Start: 10-06-2024 COVID-19 Vaccine ( season) COVID-19 Vaccine ( season) [facility] Start: 03-16-2024 End: 03-16-2024 Patient encounter procedure 03/16/2024 11:20 AM EDT Office Visit [place] [address] [place] [address] Shy Wolf MD [address] [place] [address] [facility] Start: 02-19-2024 Screening for osteoporosis Bone Density Scan [facility] Start: 02-11-2024 End: 02-11-2024 Patient encounter procedure 02/11/2024 12:30 PM EDT Appointment [place] [address] [place] [address] [facility] Start: 02-08-2024 COVID-19 Vaccine ( season) COVID-19 Vaccine ( season) [facility] Start: 02-08-2024 Influenza vaccination Influenza Vaccine (#1) [facility] Start: 02-08-2024 End: 06-19-2025 US Heart Transthoracic Transthoracic Echo (TTE) Complete Echocardiography Routine Aortic valve stenosis, etiology of cardiac valve disease unspecified Expected: 02/08/2024 (Approximate), Expires: 06/19/2025 [facility] Service Area Work Phone: Comment on above: Expected: 02/08/2024 (Approximate), Expi res: 06/19/2025 Start: 06-19-2023 FUV, Provider: Shy Wolf, Status: Pen, Time: 11:00 AM FUV, Provider: Shy Wolf, Status: Pen, Time: [facility] [facility] Work Phone: Start: 05-28-2023 COVID-19 Vaccine (5 - Moderna series) COVID-19 Vaccine (5 - Moderna series) [facility] Start: 02-26-2023 ECHO, Provider: SAMUEL YII ULTRASOUND 01,[id number], Status: Pen, Time: 10:45 AM ECHO, Provider: SAMUEL HHVI ULTRASOUND 01,[id number], Status: Pen, Time: 10:45 AM [facility] 250 DO Work Phone: Start: 12-24-2022 FUV, Provider: Shy Wolf, Status: Pen, Time: 11:20 AM FUV, Provider: Shy Wolf, Status: Pen, Time: 11:20 AM [facility] Work Phone: Start: 02-21-2022 CAROTID, Provider: SAMUEL HHVI ULTRASOUND 01,[id number], Status: Pen, Time: 12:30 PM CAROTID, Provider: SAMUEL HHVI ULTRASOUND 01,[id number], Status: Pen, Time: 12:30 PM [facility] Work Phone: Start: 02-21-2022 ECHO, Provider: SAMUEL HHVI ULTRASOUND 01,[id number], Status: Pen, Time: 10:45 AM ECHO, Provider: SAMUEL HHVI ULTRASOUND 01,[id number], Status: Pen, Time: 10:45 AM [facility] Work Phone: Start: 01-17-2022 CAROTID, Provider: SAMUEL HHVI ULTRASOUND 01,[id number], Status: Pen, Time: 2:30 PM CAROTID, Provider: SAMUEL HHVI ULTRASOUND 01,[id number], Status: Pen, Time: 2:30 PM [facility] Work Phone: Start: 01-17-2022 ECHO, Provider: SAMUEL HHVI ULTRASOUND 01,[id number], Status: Pen, Time: 1:30 PM ECHO, Provider: SAMUEL HHVI ULTRASOUND 01,[id number], Status: Pen, Time: 1:30 PM [facility] Work Phone: Start: 12-26-2021 NURSEVST, Provider: MAGDA DANIEL EXERCISE INSTRUCTOR 1,[id number], Status: Pen, Time: 11:00 AM NURSEVST, Provider: MAGDA DANIEL EXERCISE INSTRUCTOR 1,[id number], Status: Pen, Time: 11:00 AM [facility] Work Phone: Start: 1996 Hepatitis B Vaccines (1 of 3 - Risk 3-dose series) Hepatitis B Vaccines (1 of 3 - Risk 3-dose series) [facility] Start: 08-11-1955 Hepatitis A Vaccines (1 of 2 - Risk 2-dose series) Hepatitis A Vaccines (1 of 2 - Risk 2-dose series) [facility] Start: 1936 Creatinine measurement Creatinine Level [facility] Start: 1936 Lipid panel Lipid Panel [facility] Start: 1936 Medicare Annual Wellness Visit Medicare Annual Wellness Visit (AWV) [facility] Start: 1936 Potassium measurement Potassium Level [facility] Start: 1936 Thyroid stimulating hormone measurement TSH Level [facility] ECG 12 Lead ECG 12 Lead ECG Routine 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 Ordered: 12/08/2024 [facility] Service Area Work Phone: Comment on above: Ordered: 12/08/2024 End: 02-11-2024 US Heart Transthoracic [facility] Service Area Work Phone: Comment on above: Once for 1 Occurrences starting 02/11/20 24 until 02/11/2024 Immunizations Immunization Date Immunization Notes Care Provider Fa doug 04-23-2024 Pneumococcal conjuga te vaccine, 20-valent (PREVNAR 20) Shy Wolf MD Work Phone: [facility] Work Phone: 04-07-2024 Moderna COVID-19 vaccine, 12 years and older (50mcg/0.5mL)(Spikevax) Shy Wolf MD Work Phone: [facility] Work Phone: 04-07-2024 Seasonal trivalent influenza vaccine, adjuvanted, preservative free Shy Wolf MD Work Phone: [facility] Work Phone: 04-07-2024 influenza virus vaccine, unspecified formulation Reuben BURGER Work Phone: [facility] Work Phone: 06-07-2023 RESPIRATORY SYNCYTIA L VIRUS (RSV), ELIGIBLE PTS, 0.5 ML (ABRYSVO) Shy Wolf MD Work Phone: [facility] Work Phone: 04-02-2023 Influenza, Seasonal, Quadrivalent, Adjuvanted Shy Wolf MD Work Phone: [facility] Work Phone: 04-02-2023 Moderna COVID-19 vaccine, 12 years and older (50mcg/0.5mL)(Spikevax) Shy Wolf MD Work Phone: [facility] Work Phone: 04-02-2023 influenza virus vaccine, unspecified formulation Susie 2 [facility] Work Phone: 04-17-2022 Moderna COVID-19 Bivalent 50 MCG/0.5ML Intramuscular Suspension Suhas Garrett Work Phone: [facility] 250 DO Work Phone: 03-21-2022 Fluad Quadrivalent 0 .5 ML Intramuscular Prefilled Syringe Suhas Garrett Work Phone: [facility] 250 DO Work Phone: 03-21-2022 influenza, seasonal, injectable Suhas Garrett Other [employer] Other 11-14-2021 Moderna COVID-19 Vaccine 100 MCG/0.5ML Intramuscular Suspension Suhas Garrett Work Phone: [facility] Work Phone: 04-05-2021 Moderna COVID-19 Vaccine 100 MCG/0.5ML Intramuscular Suspension Suhas Garrett Work Phone: [facility] Work Phone: 03-19-2021 influenza, seasonal, injectable Suhas Garrett Other [employer] Other 08-08-2020 Moderna COVID-19 Vaccine 100 MCG/0.5ML Intramuscular Suspension Suhas P Ugo Work Phone: [facility] Work Phone: 07-11-2020 Moderna COVID-19 Vaccine 100 MCG/0.5ML Intramuscular Suspension Suhas P Ugo Work Phone: [facility] Work Phone: 04-28-2020 pneumococcal polysaccharide vaccine, 23 valent Suhas Garrett Other [employer] Other 03-06-2020 Seasonal trivalent influenza vaccine, adjuvanted, preservative free Suhas P Gaels Work Phone: [facility] Work Phone: 03-06-2020 influenza, seasonal, injectable Suhasraquel Mayos Other [employer] Other 02-08-2020 influenza virus vaccine, unspecified formulation Suhas P Kuns Work Phone: [facility] Work Phone: 02-08-2020 influenza, seasonal, injectable Suhas Kuns Other [employer] Other 05-04-2019 zoster vaccine recombinant Suhas Mayos Other [employer] Other 03-09-2019 influenza, high dose seasonal, preservative-free Suhas P Kuns Work Phone: [facility] Work Phone: 03-04-2019 influenza, seasonal, injectable Suhas Mayos Other [employer] Other 02-04-2019 zoster vaccine recombinant Suhas Mayos Other [employer] Other 05-12-2018 tetanus toxoid, redu bety diphtheria toxoid, and acellular pertussis vaccine, adsorbed Suhas Mayos Other [employer] Other 03-16-2018 Seasonal trivalent influenza vaccine, adjuvanted, preservative free Shy Wolf MD Work Phone: [facility] Work Phone: 03-09-2018 influenza virus vaccine, unspecified formulation Ushas P Kuns Work Phone: [facility] Work Phone: 04-09-2017 influenza virus vaccine, unspecified formulation Suhas P Kuns Work Phone: [facility] Work Phone: 03-28-2017 Seasonal trivalent influenza vaccine, adjuvanted, preservative free Suhas P Ugo Work Phone: [facility] Work Phone: 05-24-2016 pneumococcal conjuga te vaccine, 13 valent Shy Wolf MD Work Phone: [facility] Work Phone: 05-23-2016 pneumococcal conjuga te vaccine, 13 valent Suhasraquel Garrett Other [facility] [employer] Other 04-01-2016 Seasonal trivalent influenza vaccine, adjuvanted, preservative free Suhas P Ugo Work Phone: [facility] Work Phone: 03-09-2016 influenza virus vaccine, unspecified formulation Ushas P Ugo Work Phone: [facility] Work Phone: 03-09-2016 pneumococcal conjuga te vaccine, 13 valent Suhas P Ugo Work Phone: [facility] Work Phone: 04-07-2015 influenza, injectabl e, quadrivalent, contains preservative Suhas P Kuns Work Phone: [facility] Work Phone: 03-09-2015 influenza virus vaccine, unspecified formulation Suhas P Ugo Work Phone: [facility] Work Phone: 04-05-2014 influenza, seasonal, injectable, preservative free Suhas P Gaels Work Phone: [facility] Work Phone: 03-09-2014 influenza virus vaccine, whole virus Suhas Garrett Work Phone: [facility] Work Phone: 03-23-2013 influenza, seasonal, injectable Suhas P Gaels Work Phone: [facility] Work Phone: 03-09-2013 influenza virus vaccine, unspecified formulation Suhas Garrett Work Phone: [facility] Work Phone: 04-14-2012 influenza, injectabl e, quadrivalent, contains preservative Suhas Garrett Other [facility] [employer] Other 06-09-2011 influenza virus vaccine, unspecified formulation Suhas Garrett Work Phone: [facility] Work Phone: 06-09-2010 influenza virus vaccine, unspecified formulation Suhas Garrett Work Phone: [facility] Work Phone: 06-09-2009 influenza virus vaccine, unspecified formulation Suhas Garrett Work Phone: [facility] Work Phone: 05-30-2009 novel [id number], preservative-free, injectable Suhas Garrett Work Phone: [facility] Work Phone: 10-19-2007 varicella virus vaccine Belkys Garrett Work Phone: [facility] Work Phone: 06-09-2006 pneumococcal polysaccharide vaccine, 23 valent Suhas Garrett Work Phone: [facility] Work Phone: Payers Date Payer Category Payer Self-pay 2022 Managed Care (Private) [facility] [id number] 2022 Private Health Insurance [id number] 2001 Medicare [id number] 2001 Unknown 1959 Medicare [id number] 1959 Private Health Insurance [id number] 1936 Unknown [id number] [id number]. 2.593 1936 Unknown [id number] [id number]. 2.356 1936 Unknown [id number] 2.16840.1.863243.3.579. 2.356 1936 Unknown [id number] 2.16840.1.271090.3.579. 2.1068 1936 Unknown [id number] 2.16840.1.696675.3.579. 2.196 1936 Unknown [id number] 2.16840.1.729869.3.579. 2.196 1936 Unknown [id number] 2.16840.1.311747.3.579. 2.196 1936 Unknown [id number] 2.16840.1.576667.3.579. 2.196 1936 Unknown [id number] 2.16.840.1.961681.3.579. 2.196 1936 Unknown [id number] 2.16840.1.329973.3.579. 2.1246 1936 Unknown [id number] 2.16.840.1.066988.3.579. 2.1246 1936 Unknown [id number] 2.16.840.1.164283.3.579. 2.1244 1936 Unknown [id number] 2.16.840.1.440577.3.579. 2.1244 1936 Unknown [id number] 2.16.840.1.046276.3.579. 2.1244 Unknown [id number] 2.16.840.1.332789.3.579. 2.531 Unknown [id number] 2.16.840.1.020672.3.579. 2.531 Unknown [id number] [id number]. 2.531 Unknown [id number] [id number]. 2.531 Social History Date Type Detail Facility Unknown if ever smoked [employer] Other Start: 06-19-2023 End: 01-14-2025 Sex Assigned At [employer] Other Start: 06-19-2023 End: 01-14-2025 Caffeine use Caffeine use [facility] Work Phone: Start: 06-19-2023 [facility] Work Phone: Start: 06-19-2023 Tobacco use and exposure Smokeless tobacco non-user [facility] Work Phone: Start: 1935 [facility] Start: 06-09-2023 End: 04-16-2024 Exposure to SARS-CoV-2 (event) Not sure [facility] Start: 04-16-2024 End: 01-14-2025 Alcoholic beverage intake Current drinker of alcohol (finding) [facility] Work Phone: Start: 05-03-2022 Sex Female [facility] Clinical Notes 02-15-2015 to 01-14-2025 Shy Wolf MD - 01/14/2025 11:00 AM EDTPatient InstructionsAttaAdinamayo Gibbs YASMIN Burns-SEWING MACHINES SALESPERSON - 12/07/2024 3:00 PM EDTPatient InstructionsSyh Wolf MD - 04/16/2024 1:30 PM EST Note Date & Type Note Facility 01-14-2025 History of Present illness Narrative HPI Patient is in the office for follow-up for aortic valve disease with moderate severe stenosis along with history of hypertension hyperlipidemia. The patient had a follow-up echocardiogram December 2024 which revealed moderate aortic stenosis and a peak velocity of 327 cm/s. Ejection fraction was normal at 65 to 70%. The findings were compared to the previous echo from February 2024 with no significant increase in velocity across aortic valve but with resolution of pulmonary hypertension. The findings were shared with the patient. She does have a history of hypertension medical therapy which has been under control She had basic metabolic profile done in November 2024 revealing normal findings. Her examination is remarkable for aortic stenosis murmur and slight overweight. The patient is contemplating implantation of a stimulator to relieve her back pain. She is awaiting cardiac clearance. ASSESSMENT AND PLAN: 1. Essential hypertension, on a combination of amlodipine 5 mg daily, carvedilol 6.25 mg twice daily, losartan/hydrochlorothiazide 100/12.5 mg daily., Patient has been compliant with diet and salt restriction and other medications. Even though the blood pressure is elevated in the office at home her blood pressure readings were completely normal. She clearly has whitecoat hypertension element. 2. Moderate aortic stenosis confirmed by echocardiogram December 2024 with a velocity 327 cm/s. Remains asymptomatic, this was shared with the patient follow-up testing in 1 year will be scheduled followed by office visit. Natural history of disease was explained and discussed with the patient. If we reached a stage where the valve need to be replaced she would likely qualify for a TAVR 3. Polymyalgia rheumatica currently on high-dose steroids. Managed by PCP. The patient is being considered for pain management stimulator which I find to be appropriate and there is no cardiac concern to proceed with the surgery as planned from the cardiac standpoint. 4. Hyperlipidemia, being managed with diet and lifestyle modifications. 5. Hypothyroidism, on replacement therapy. 6. Slight overweight, patient maintains active lifestyle within the constraints of her lower back pain. ROS Review of system was normal except for chronic back pain Vitals: 01/14/25 1107 BP: 168/78 BP Location: Left arm Patient Position: Sitting Pulse: 60 Weight: 68 kg (150 lb) Height: 1.575 m (5' 2 ) Objective Physical Exam Constitutional: Appearance: Normal appearance. HENT: Nose: Nose normal. Neck: Vascular: No carotid bruit. Cardiovascular: Rate and Rhythm: Normal rate. Pulses: Normal pulses. Heart sounds: Murmur heard. Comments: 3/6 systolic murmur Pulmonary: Effort: Pulmonary effort is normal. Abdominal: General: Bowel sounds are normal. Palpations: Abdomen is soft. Musculoskeletal: General: Normal range of motion. Cervical back: Normal range of motion. Right lower leg: No edema. Left lower leg: No edema. Skin: General: Skin is warm and dry. Neurological: General: No focal deficit present. Mental Status: She is alert. Psychiatric: Mood and Affect: Mood normal. Behavior: Behavior normal. Thought Content: Thought content normal. Judgment: Judgment normal. Allergies Amoxicillin, Hydrocodone, Alendronate, Depakote [divalproex], Valproic acid, and Phenytoin Current Medications Current Outpatient Medications Medication Instructions acetaminophen (TYLENOL 8 HOUR) 650 mg, Every 8 hours PRN amLODIPine (NORVASC) 5 mg, Daily aspirin 81 mg, 3 times weekly carvedilol (Coreg) 6.25 mg tablet 1 tablet, 2 times daily (morning and late afternoon) gabapentin (NEURONTIN) 100 mg, 3 times daily levothyroxine (Synthroid, Levoxyl) 100 mcg tablet 1 tablet, Daily LORazepam (ATIVAN) 0.5 mg, Every 6 hours PRN losartan-hydrochlorothiazide (Hyzaar) 100-12.5 mg tablet 1 tablet, Daily multivit-min/ferrous fumarate (MULTI VITAMIN ORAL) 1 tablet, Daily predniSONE (DELTASONE) 10 mg, Daily Assessment/Plan 1. Nonrheumatic aortic valve stenosis Follow Up In Cardiology Follow Up In Cardiology Transthoracic Echo Complete 2. 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 3. Hyperlipidemia, unspecified hyperlipidemia type 4. PMR (polymyalgia rheumatica) (Multi) 5. Hypothyroidism, unspecified type 6. BMI 27.0-27.9,adult 7. Never smoked any substance 8. Overweight Scribe Attestation By signing my name below, I, Avni Burciaga LPN attest that this documentation has been prepared under the direction and in the presence of Shy Wolf MD. Provider Attestation - Scribe documentation All medical record entries made by the Scribe were at my direction and personally dictated by me. I have reviewed the chart and agree that the record accurately reflects my personal performance of the history, physical exam, discussion and plan. documented in this encounter [facility] Work Phone: 01-14-2025 Instructions Richelle Frey LPN - 01/14/2025 11:00 AM EDT Please bring all medicines, vitamins, and herbal supplements with you when you come to the office. Prescriptions will not be filled unless you are compliant with your follow up appointments or have a follow up appointment scheduled as per instruction of your physician. Refills should be requested at the time of your visit. BMI was above normal measurement. Current weight: 68 kg (150 lb) Weight change since last visit (-) denotes wt loss 5 lbs Weight loss needed to achieve BMI 25: 13.6 Lbs Weight loss needed to achieve BMI 30: -13.7 Lbs Provided instructions on dietary changes. The following attachments cannot be sent through Care Everywhere.Heart Healthy Diet ([place])documented in this encounter [facility] Work Phone: 12-07-2024 History of Present illness Narrative Subjective: Lavonne Villatoro is a 89 y.o. female with hypertension. She presents back to the office today for earlier follow-up with request of her family physician for hypertension management. She was last evaluated in clinic by Dr. Wolf April 2024 and at that time blood pressure was optimal. She subsequently discontinued the amlodipine 10 mg due to lower extremity edema. The end of October she was at pain management to get an epidural injection and reports that her blood pressure was 188/99. Her PCP placed her back on Norvasc 5 mg daily and she has been compliant with those medication, has no lower extremity edema. She presents to the office today with a 5-week history of recorded blood pressures from home. She has an arm cuff, it is a new machine has not been calibrated by medical staff. She takes her blood pressure 2 hours after her morning meds. I reviewed all the records and systolic blood pressures pretty much range between 111- 143. In the office on my check right blood pressure 142/70 and left 150/80. She reports that she has had whitecoat syndrome . She does have aortic stenosis with peak 52, mean 26 (February 2024 TTE). Since home blood pressure recordings are optimal, preference would be to avoid any type of hypotension and for now we will not make any additional changes. She is planning to have a spinal cord stimulator trial implant next Friday. This will be completed under local anesthetic. Her EKG in the office today is sinus rhythm without any evidence of ischemia. The are no cardiovascular contraindications for her to undergo local anesthetic now that her blood pressure is under better control. Her annual echocardiogram is scheduled for December 21, 2024 for aortic stenosis surveillance. Dr. Wolf will need to review these results before any type of general anesthesia can be recommended. Current Outpatient Medications Medication Instructions acetaminophen (TYLENOL 8 HOUR) 650 mg, Every 8 hours PRN amLODIPine (NORVASC) 5 mg, Daily aspirin 81 mg, 3 times weekly carvedilol (Coreg) 6.25 mg tablet 1 tablet, 2 times daily (morning and late afternoon) gabapentin (NEURONTIN) 100 mg, 3 times daily levothyroxine (Synthroid, Levoxyl) 100 mcg tablet 1 tablet, Daily LORazepam (ATIVAN) 0.5 mg, Every 6 hours PRN losartan-hydrochlorothiazide (Hyzaar) 100-12.5 mg tablet 1 tablet, Daily multivit-min/ferrous fumarate (MULTI VITAMIN ORAL) 1 tablet, Daily predniSONE (DELTASONE) 5 mg, Daily Hypertension ROS: taking medications as instructed, no medication side effects noted, no TIA's, no chest pain on exertion, no dyspnea on exertion, and no swelling of ankles. New concerns: none. Objective: BP 178/54 (BP Location: Left arm, Patient Position: Sitting) Pulse 62 Ht 1.575 m (5' 2 ) Wt 65.6 kg (144 lb 9.6 oz) BMI 26.45 kg/m Appearance alert, well appearing, and in no distress. General exam BP noted to be well controlled today in office, S1, S2 normal, no gallop, no murmur, chest clear, no JVD, no HSM, no edema. Lab review: no lab studies available for review at time of visit. Assessment: Hypertension improved and reasonably well controlled. Plan: Orders and follow up as documented in patient record. Reuben Burns MSN, JENNYFER, PMHNP-[facility] [place], [place] Please excuse any errors in grammar or translation related to this dictation. Voice recognition software was utilized to prepare this document. documented in this encounter [facility] Work Phone: 12-07-2024 Instructions JENNYFER Garsia - 12/07/2024 3:00 PM EDT Please bring all medicines, vitamins, and herbal supplements with you when you come to the office. Prescriptions will not be filled unless you are compliant with your follow up appointments or have a follow up appointment scheduled as per instruction of your physician. Refills should be requested at the time of your visit. PLAN: Through informed decision making process incorporating patients unique circumstances, the following treatment plan will be initiated: 1. Prescription drug management of cardiovascular medication for efficacy, adherence to treatment, side effect assessment and polypharmacy. Current treatment clinically warranted and to continue without modifications. 2. Return for follow-up; in the interim, contact the office if new symptoms arise. Dr. Wolf as scheduled documented in this encounter [facility] Work Phone: 12-07-2024 Miscellaneous Notes Addended by: REUEBN BURNS on: 12/08/2024 02:08 PM Modules accepted: Orders documented in this encounter [facility] Work Phone: 12-07-2024 Note Addended by: REUBEN BURNS on: 12/08/2024 02:08 PM Modules accepted: Orders [facility] Work Phone: 04-16-2024 History of Present illness Narrative Subjective Lavonne Villatoro is a 88 y.o. female Chief Complaint Follow-up HPI Patient is in the office for follow-up for aortic stenosis and hypertension among other problems noted below. We repeated the echocardiogram March 2024 and the velocity across aortic valve remains unchanged around 375 cm/s. She remains without any dyspnea syncope or chest pain. She has a problem with polymyalgia rheumatica on steroid therapy. Also had bulging disc in her back causing pain. Her pressure is under control. Lab data from August 2023 were reviewed and shared with her her numbers are on target. Her weight has not changed much from last visit. Cardiac murmur has not changed. Lungs sounded normal she has no lower extremity edema. She has tolerated medication fairly well without side effects. ASSESSMENT AND PLAN: 1. Essential hypertension, multiple medication, currently under control, no changes are needed. 2. Hyperlipidemia, being managed with diet and lifestyle modifications. 3. Hypothyroidism, on replacement therapy. Followed by PCP 4. Moderate approaching severe aortic stenosis confirmed by echocardiogram March 2024. Remains asymptomatic, this was shared with the patient and 9 months echocardiogram is scheduled followed by office visit 5. Slight overweight. Patient is aware of it and is working to get her weight further down 6. Polymyalgia rheumatica currently on high-dose steroids. Managed by PCP. The prednisone is being tapered gradually Review of Systems All other systems reviewed and are negative. Vitals: 11/08/24 1316 BP: 120/62 BP Location: Left arm Patient Position: Sitting Pulse: 62 Weight: 66.1 kg (145 lb 12.8 oz) Height: 1.575 m (5' 2 ) Objective Physical Exam Constitutional: Appearance: Normal appearance. HENT: Nose: Nose normal. Neck: Vascular: No carotid bruit. Cardiovascular: Rate and Rhythm: Normal rate. Pulses: Normal pulses. Heart sounds: Murmur heard. Systolic murmur is present with a grade of 2/6. Comments: 2-3/6 murmur Pulmonary: Effort: Pulmonary effort is normal. Abdominal: General: Bowel sounds are normal. Palpations: Abdomen is soft. Musculoskeletal: General: Normal range of motion. Cervical back: Normal range of motion. Right lower leg: No edema. Left lower leg: No edema. Skin: General: Skin is warm and dry. Neurological: General: No focal deficit present. Mental Status: She is alert. Psychiatric: Mood and Affect: Mood normal. Behavior: Behavior normal. Thought Content: Thought content normal. Judgment: Judgment normal. Allergies Amoxicillin, Hydrocodone, Alendronate, Valproic acid, and Phenytoin Current Medications Current Outpatient Medications: amLODIPine (Norvasc) 10 mg tablet, Take 1 tablet (10 mg) by mouth once daily., Disp: , Rfl: aspirin 81 mg EC tablet, Take 1 tablet (81 mg) by mouth. (Patient taking differently: Take 1 tablet (81 mg) by mouth 3 (three) times a week. 3 times a week), Disp: , Rfl: calcium carbonate 600 mg calcium (1,500 mg) tablet, Take 1 tablet (1,500 mg) by mouth once daily., Disp: , Rfl: carvedilol (Coreg) 6.25 mg tablet, Take 1 tablet (6.25 mg) by mouth 2 times daily (morning and late afternoon)., Disp: , Rfl: levothyroxine (Synthroid, Levoxyl) 100 mcg tablet, Take 1 tablet (100 mcg) by mouth once daily., Disp: , Rfl: losartan-hydrochlorothiazide (Hyzaar) 100-12.5 mg tablet, Take 1 tablet by mouth once daily., Disp: , Rfl: multivit-min/ferrous fumarate (MULTI VITAMIN ORAL), Take 1 tablet by mouth once daily., Disp: , Rfl: omega-3 (Fish Oil) 60-90-500 mg capsule, Take 1 capsule (500 mg) by mouth once daily., Disp: , Rfl: oxycodone HCl/acetaminophen (OXYCODONE-ACETAMINOPHEN ORAL), Take by mouth., Disp: , Rfl: predniSONE (Deltasone) 5 mg tablet, Take 1 tablet (5 mg) by mouth once daily. Alternating 2.5 tab, Disp: , Rfl: Assessment/Plan 1. Aortic valve stenosis, etiology of cardiac valve disease unspecified Follow Up In Cardiology Follow Up In Cardiology Transthoracic Echo Complete 2. Essential hypertension 3. Hyperlipidemia, unspecified hyperlipidemia type 4. Never smoked any substance 5. BMI 26.0-26.9,adult Scribe Attestation By signing my name below, ISherin LPN, Scribe attest that this documentation has been prepared under the direction and in the presence of Shy Wolf MD. Provider Attestation - Scribe documentation All medical record entries made by the Scribe were at my direction and personally dictated by me. I have reviewed the chart and agree that the record accurately reflects my personal performance of the history, physical exam, discussion and plan. documented in this encounter [facility] Work Phone: 04-16-2024 Instructions Sherin Mendez LPN - 04/16/2024 1:30 PM EST Please bring all medicines, vitamins, and herbal supplements with you when you come to the office. Prescriptions will not be filled unless you are compliant with your follow up appointments or have a follow up appointment scheduled as per instruction of your physician. Refills should be requested at the time of your visit. BMI was above normal measurement. Current weight: 66.1 kg (145 lb 12.8 oz) Weight change since last visit (-) denotes wt loss -7.2 lbs Weight loss needed to achieve BMI 25: 9.4 Lbs Weight loss needed to achieve BMI 30: -17.9 Lbs Provided instructions on dietary changes Provided instructions on exercise. Echo 9 months 9 month follow up documented in this encounter [facility] Work Phone: 07-18-2023 Evaluation note Encounter Date Diagnosis Assessment Notes Jul, PMR (polymya lgia rheumati ca) (ICD-10 - M35.3) [employer] Other 02-06-2024 Evaluation note* Encounter Date Diagnosis Assessment Notes Treatment Notes Treatment Clinical Notes Jul, PMR (polymyalgia rheumatica) (ICD-10 - M35.3) [employer] Other 02-01-2024 Evaluation note* Encounter Date Diagnosis Assessment Notes Treatment Notes Treatment Clinical Notes Jul, Hypothyroidism (ICD-10 - E03.9) [employer] Other 01-29-2024 Evaluation note* Encounter Date Diagnosis Assessment Notes Treatment Notes Treatment Clinical Notes Jun, Hypothyroidism (ICD- 10 - E03.9) Jun, Hyperthyroidism (ICD-10 - E05.90) [employer] Other 01-26-2024 Evaluation note* Encounter Date Diagnosis [...] medications in combination with eachother. Also discussed terminal computer operator steriod use in regards to her [...] requires sooner she is welcome to call. [employer] Other 01-11-2024 Evaluation note* Encounter Date Diagnosis Assessment Notes Treatment Notes Treatment Clinical Notes Jun, PMR (polymyalgia rheumatica) (ICD-10 - M35.3) [employer] Other 01-11-2024 History of Present illness Narrative* [...] of Shy Wolf MD. [facility]: [phone] 378-957701-11-2024 Instructions* Patient Instructions* Yevgeniy Cortez MA - [...] time of your visit. [facility] Phone: [phone] 420-665712-22-2023 Evaluation note* Encounter Date Diagnosis Assessment Notes [...] recommend the patient get the RSV vaccine. [employer] Other 12-20-2023 Evaluation note* Encounter Date Diagnosis Assessment Notes Treatment Notes Treatment Clinical Notes May, Hypertension (ICD-10 - I10) May, Hypothyroidism (ICD-10 - E03.9) [employer] Other 11-10-2023 Evaluation note* Encounter Date Diagnosis Assessment Notes Treatment Notes Treatment Clinical Notes Apr, PMR (polymyalgia rheumatica) (ICD-10 - M35.3) [employer] Other 09-22-2023 Evaluation note* Encounter Date Diagnosis Assessment Notes Treatment Notes Treatment Clinical Notes Feb, PMR (polymyalgia rheumatica) (ICD-10 - M35.3) She was encouraged to take 2.5mg daily. Patient is agreeable. Feb, Hypertension (ICD-10 - I10) Blood pressure is satisfactory, she is to follow with cardiology as scheduled. [employer] Other 08-21-2023 Evaluation note* Encounter Date Diagnosis Assessment Notes Treatment Notes Treatment Clinical Notes Jan, Hypertension (ICD-10 - I10) [employer] Other 06-30-2023 Evaluation note* Encounter Date Diagnosis [...] would like to do. Patient is agreeable. [employer] Other 04-14-2023 Evaluation note* Encounter Date Diagnosis [...] tablets daily. We will continue to monitor. [employer] Other 03-08-2023 Evaluation note* Encounter Date Diagnosis Assessment Notes Treatment Notes Treatment Clinical Notes Aug, PMR (polymyalgia rheumatica) (ICD-10 - M35.3) [employer] Other 02-13-2023 Evaluation note* Encounter Date Diagnosis [...] states she has an upcoming appointment with computer hardware developer and she will discuss making medication changes at that time. [employer] Other 11-09-2022 Evaluation note* Encounter Date Diagnosis [...] can cut Apr, Hyperlipidemia (ICD-10 - E78.5) [employer] Other 11-02-2022 Evaluation note* Encounter Date Diagnosis Assessment Notes Treatment Notes Treatment Clinical Notes Apr, PMR (polymyalgia rheumatica) (ICD-10 - M35.3) [employer] Other 10-26-2022 Evaluation note* Encounter Date Diagnosis Assessment Notes Treatment Notes Treatment Clinical Notes Mar, Lumbar back pain (ICD-10 - M54.50) [employer] Other 09-20-2022 Evaluation note* Encounter Date Diagnosis Assessment Notes Treatment Notes Treatment Clinical Notes Feb, Elevated liver function tests (ICD-10 - R79.89) [employer] Other 09-16-2022 Evaluation note* Encounter Date Diagnosis Assessment Notes Treatment Notes Treatment Clinical Notes Feb, Acute pain of left shoulder (ICD-10 - M25.512) [place] [facility] report reviewed from 02/20/22 . The [...] pain (ICD-10 - R10.13) The patient advised [place] could be causing her GI upset , [...] month [place] at her next office visit. [employer] Other 09-08-2022 Evaluation note* Encounter Date Diagnosis [...] (ICD-10 - M85.80) Noted on Lumbar x-ray. [employer] Other 08-05-2022 Evaluation note* Encounter Date Diagnosis Assessment Notes Treatment Notes Treatment Clinical Notes Jan, COVID-19 (ICD-10 - U07.1) [employer] Other 08-05-2022 Evaluation note* Encounter Date Diagnosis Assessment Notes Treatment Notes Treatment Clinical Notes Jan, Cough (ICD-10 - R05.9) In house covid test is positive. Treatment plan discussed in TE. [employer] Other 07-14-2022 Evaluation note* Encounter Date Diagnosis Assessment Notes Treatment Notes Treatment Clinical Notes Dec, PMR (polymyalgia rheumatica) (ICD-10 - M35.3) [employer] Other 05-27-2022 Evaluation note* Encounter Date Diagnosis Assessment Notes Treatment Notes Treatment Clinical Notes October, PMR (polymyalgia rheumatica) (ICD-10 - M35.3) [employer] Other 04-25-2022 Evaluation note* Encounter Date Diagnosis [...] The patient encourged to continue following with computer hardware developer annually in December as scheduled. I did forward a copy of most current blood work results . [employer] Other 04-04-2022 Evaluation note* Encounter Date Diagnosis Assessment Notes Treatment Notes Treatment Clinical Notes Sep, PMR (polymyalgia rheumatica) (ICD-10 - M35.3) Sep, Hypertension (ICD-10 - I10) [employer] Other 02-24-2022 Evaluation note* Encounter Date Diagnosis [...] if needed. We will continue to montior. [employer] Other 02-16-2022 Evaluation note* Encounter Date Diagnosis Assessment Notes Treatment Notes Treatment Clinical Notes Jul, PMR (polymyalgia rheumatica) (ICD-10 - M35.3) [employer] Other 11-30-2021 Evaluation note* Encounter Date Diagnosis Assessment Notes Treatment Notes Treatment Clinical Notes Apr, PMR (polymyalgia rheumatica) (ICD-10 - M35.3) [employer] Other 11-18-2021 Evaluation note* Encounter Date Diagnosis [...] Hypothyroidism (ICD-10 - E03.9) Blood work ordered. [employer] Other 09-09-2015 History general Narrative - Reported* Type Description Date Medical History Shingles Medical History 02-15-15-mammogram-negativ e Medical History [id number]-omsyekmxohm-fcfbvc, repea t in 3 yrs Medical History 03/2017- colonoscopy- normal Medical History f/u with cardiology [facility] Medical History ECHO 09/2016 Surgical History Appendectomy Surgical History Gallbladder Removal Surgical History Ovarian Cyst Removal Surgical History Coccyx repair Surgical History Cataracts Bilateral Eyes Surgical History thyroidectomy Dr. Forbes 10/14/2019 Hospitalization History Childbirth x5 Hospitalization History See Above [facility] [employer] Other Evaluation noteNo [facility] [employer] Other Evaluation note* Diagnosis Aortic valve stenosis, etiology of cardiac valve disease unspecified Essential hypertension Unspecified essential hypertension Hyperlipidemia, unspecified hyperlipidemia type Never smoked any substance documented in this encounter [facility] Work Phone: Evaluation note* Diagnosis Aortic valve stenosis, etiology of cardiac valve disease unspecified- Primary Essential hypertension Unspecified essential hypertension Hyperlipidemia, unspecified hyperlipidemia type Never smoked any substance BMI 26.0-26.9,adult Hypothyroidism, unspecified type documented in this encounter [facility] Work Phone: Evaluation note* Diagnosis Nonrheumatic aortic valve stenosis Aortic valve stenosis, etiology of cardiac valve disease unspecified documented in this encounter [facility] Work Phone: Evaluation note* Diagnosis 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- Primary BMI 26.0-26.9,adult documented in this encounter [facility] Work Phone: Evaluation note* Diagnosis Aortic valve stenosis, etiology of cardiac valve disease unspecified documented in this encounter [facility] Work Phone: Evaluation note* Diagnosis Nonrheumatic aortic valve stenosis- Primary 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 Hyperlipidemia, unspecified hyperlipidemia type PMR (polymyalgia rheumatica) (Multi) Polymyalgia rheumatica Hypothyroidism, unspecified type BMI 27.0-27.9,adult Never smoked any substance Overweight documented in this encounter [facility] Work Phone: Reason for visit Narrative* CV Imaging (Routine) - Authorized Specialty Diagnoses / Procedures Referred By Contac t Referred To Contact Cardiology Diagnoses Aortic valve stenosis, etiology of cardiac valve disease unspecified Procedures Transthoracic Echo Complete [place] ECHO TTHRC R-T 2D W/WOM-MODE COMPL SPEC&COLR D Shy Wolf MD [address], [address] [address] Phone: tel: fax: Referral ID Status Reason Start Date Expiration Date Visits Requested Visits Authorized [id number] Authorized Perform Procedure 04/16/2024 04/16/2025 1 1 [facility] Work Phone: Chief Complaint * LAVONNE [...] being tapered gradually * Shy Wolf MD, [facility] Family History No Family History Records FoundUnknown [...] PMR (polymyalgia rhe umatica) (M35.3) Referral Organization [facility] Medicin e Datto Referring Provider First Name Suhas Referring Provider Last Name Ugo Referring Provider [facility] Family Prac sukhjinder Referred Organization [facility] Referred Address [address] [place], [place],[address] Referred Provider Specialty Rheumatology Referral Priority Routine General Notes Zaida Tinsley 10:11:01 AM >received today, completed referral form and faxed to their referring physicians department. Patient will be contacted by the CC to schedule her appointment. Specialty Diagnoses / Procedures Referred By Contsavanah t Referred To Contact Cardiology Diagnoses Aortic valve stenosis, etiology of cardiac valve disease unspecified Procedures Transthoracic Echo (TTE) Complete [place] ECHO TTHRC R-T 2D W/WOM-MODE COMPL SPEC&COLR D Shy Wolf MD [address], [address] [place] [address] Referral ID Status Reason Start Date Expiration Date Visits Requested Visits Authorized [id number] Pending Review Perform Procedure 06/19/2023 06/18/2024 1 1 Specialty Diagnoses / Procedures Referred By Contac t Referred To Contact Cardiology Diagnoses Aortic valve stenosis, etiology of cardiac valve disease unspecified Procedures Follow Up In Cardiology Shy Wolf MD [address], [address] [address] Shy Wolf MD [address], [address] [address] Referral ID Status Reason Start Date Expiration Date V isits Requested Visits Authorized [id number] Authorized 06/19/2023 06/18/2024 1 1 Additional Source Comments REASON FOR VISIT (unrecogniz ed section and content) Reason Comments Follow-up 9 month, echocardiog taz results Specialty Diagnoses / Procedures Referred By Contac t Referred To Contact Cardiology Diagnoses Aortic valve stenosis, etiology of cardiac valve disease unspecified Procedures Follow Up In Cardiology Shy Wolf MD [address], [address] [address] Phone: tel: fax: Shy Wolf MD [address], [address] [address] Phone: tel: fax: Referral ID Status Reason Start Date Expiration Date V isits Requested Visits Authorized [id number] Authorized 04/16/2024 04/16/2025 1 1 Reason Comments Follow-up 6m Reason Comments Follow-up 9m Referral ID Status Reason Start Date Expiration Date V isits Requested Visits Authorized [id number] Authorized 06/19/2023 06/18/2024 1 1 Specialty Diagnoses / Procedures Referred By Contac t Referred To Contact Cardiology Diagnoses Nonrheumatic aortic valve stenosis Procedures Transthoracic Echo (TTE) Complete [place] ECHO TRANSTHORC R-T 2D W/WO M-MODE REC F-UP/LMTD [place] DOP ECHOCARD COLOR FLOW VELOCITY MAPPING [place] DOP ECHOCARD PULSE WAVE W/SPECTRAL F-UP/LMTD STD Shy Wolf MD [address], [address] [address] Referral ID Status Reason Start Date Expiration Date Visits Requested Visits Authorized [id number] Authorized Perform Procedure 03/03/2023 08/30/2023 1 1 Reason Comments Pre-op Clearance POC for spinal cord stimulator, scheduled 12.13.[address] Weston. INFORMATION SOURCE (unrecogn ized section and content) DATE CREATED AUTHOR 03/06/2022 [facility] DATE CREATED AUTHOR AUTHOR'S ORGANIZ ATION 12/25/2022 [facility] DATE CREATED AUTHOR AUTHOR'S ORGANIZ ATION 12/25/2022 [employer] DATE CREATED AUTHOR AUTHOR'S ORGANIZ ATION 03/03/2023 [facility] DATE CREATED AUTHOR AUTHOR'S ORGANIZ ATION 07/29/2024 [facility] DATE CREATED AUTHOR AUTHOR'S ORGANIZ ATION 11/05/2024 [facility] DATE CREATED AUTHOR AUTHOR'S ORGANIZ ATION 12/25/2024 [facility] DATE CREATED AUTHOR AUTHOR'S ORGANIZ ATION 01/16/2025 [facility] Set Up Machinist Teams (unrecognized sec tion and content) Dress Operator Relationship Specialty Start Date End Date Suhas Garrett DO PCP - General 06/09/99 Dress Operator Relationship Specialty Start Date End Date Suhas Garrett DO [address] [place] [address] PCP - General Family Medicine 01/30/24 Dress Operator Relationship Specialty Start Date End Date Suhas Garrett DO [address] [place] [address] PCP - General Family Medicine 01/30/24 Dress Operator Relationship Specialty Start Date End Date Suhas Garrett, DO [address] [place] [address] PCP - General Family Medicine 01/30/24 Dress Operator Relationship Specialty Start Date End Date Suhas Garrett DO [address] [place] [address] PCP - General Family Medicine 01/30/24 Dress Operator Relationship Specialty Start Date End Date Suhas Garrett, DO [address] [place] [address] PCP - General Family Medicine 01/30/24 FOR RECORDS PERTAINING TO PATIENTS WHO ARE [...] BE BASED ON THE PRIMARY CLINICAL RECORDS. Painting [employer] [facility]. provides no warranty or guarantee of the accuracy or completeness of information in this document.
[2025-02-08 10:45] LABS: Anion Gap 11.8; Blood Urea Nitrogen 22.0 mg/dL (7.0-18.0); Calcium 8.8 mg/dL (8.5-10.1); Carbon Dioxide 26.1 mmol/L (21.0-32.0); Chloride 108 mmol/L (98-107); Estimated GFR (African America >60 (>=60 mL/min/1.73m^2); Estimated GFR (Non-African Ame >60 (>=60 mL/min/1.73m^2); Glucose 110 mg/dL (74-106); Potassium 3.9 mmol/L (3.5-5.1); Sodium 142 mmol/L (136-145)
== END 2025-02-08 09:35 | disposition home or self-care (01) ==
LOC: PST 09:36
PROVIDERS: PCP Family Medicine; Visit Provider Anesthesiology
DX: Z01.812 Encounter for preprocedural laboratory examination (principal); M48.062 Spinal stenosis, lumbar region with neurogenic claudication
CPT/HCPCS: 36415; 80048

== ENCOUNTER 2025-02-14 07:27 | Day surgery (SDC) | payer MEDICARE, OTHER, SELFPAY ==
[2024-11-29 12:08] VITALS: BP 199/77; PULSE 55; TEMP 36.3; O2SAT 98; BMI 26.3
[2025-02-08 10:18] VITALS: BP 170/72; PULSE 56; TEMP 36.5; O2SAT 96; BMI 27.5
--- OUTSIDE RECORDS SUMMARY | 2025-02-14 07:29 | XMS_ITS | Encounter Summary ---
Author Organization [facility] Address [address] [place] [address] Phone Care Team Providers Care Property Claims Adjuster Name Role Phone Suhas Arizmendi DO Primary Care Provider [phone] Suhas Arizmendi DO Primary Care Provider [phone] Encounter Details Date Type Department Care Team (Late st Contact Info) Description 09/03/2023 Scanned Document [facility] [address] [place] [phone] Scanning, Generic Provider Social History Tobacco Use [...] Care Team (Late st Contact Info) Description 12/20/2025 10:45 AM EDT Appointment [address] [place] [phone] 01/26/2026 11:00 AM EDT Office Visit [address] [place] [phone] Michel Wolf MD [address] [facility] 2, [facility] [address] [place] [address] documented as of this encounter Visit Diagnoses Not on filedocumented in this encounter Additional Health Concerns Assessment Noted Time A fall risk assessment has been complete d for the patient 06/19/2023 11:09 AM EST documented as of this encounter Care Teams Property Claims Adjuster Relationship Specialty Start Date End Date Suhas Arizmendi DO PCP - General 06/09/99 01/29/24 Suhas Arizmendi DO [facility] [address] [id number] PCP - General Family Medicine 01/30/24 documented as of this encounter
--- OUTSIDE RECORDS SUMMARY | 2025-02-14 07:29 | XMS_ITS | Encounter Summary ---
Author Organization [facility] Address [address] [place] [address] Phone Care Team Providers Care Civil Engineering Project Manager Name Role Phone Suhas Arizmendi DO Primary Care Provider [phone] Suhas Arizmendi DO Primary Care Provider [phone] Encounter Details Date Type Department Care Team (Late st Contact Info) Description 11/08/2019 Orders Only [facility] [address] [place] [address] Conversion, Onbase Social History Tobacco Use Types [...] Info) Description 12/20/2025 10:45 AM EDT Appointment [address] [place] [phone] 01/26/2026 11:00 AM EDT Office Visit [address] [place] [phone] Michel Wolf MD [address] [facility] [address], [address] [place], [place] [id number] Scheduled Orders Name Type Priority Associated Diagnoses Orde r Schedule OUTSIDE LAB SCAN Lab Ordered: 11/08/2019 documented as of this encounter Visit Diagnoses Not on filedocumented in this encounter Care Teams Civil Engineering Project Manager Relationship Specialty Start Date End Date Suhas Arizmendi DO PCP - General 06/09/99 01/29/24 Suhas Arizmendi DO [facility] [place] [address] PCP - General Family Medicine 01/30/24 documented as of this encounter
--- OUTSIDE RECORDS SUMMARY | 2025-02-14 07:29 | XMS_ITS | Clinical Summary ---
Author Organization [facility] Address [address] [place] [address] Phone Care Team Providers Care Industrial Electrical Technician Name Role Phone Suhas Arizmendi Dalton TYLER Primary Care Provider [phone] Allergies Active Allergy Reactions Criticality Noted Date Comments Alendronate Other 06/04/2023 Eye pain Amoxicillin Hives High 06/04/2023 Divalproex Other 12/07/2024 Hair loss Hydrocodone GI Upset Medium 06/19/2023 Phenytoin Rash Low 06/04/2023 Valproic Acid Unknown 06/04/2023 Medications multivit-min/fe rrous fumarate (MULTI VITAMIN ORAL) Take 1 tablet by mouth once daily. Active losartan-hydroc hlorothiazide (Hyzaar) 100-12.5 mg tablet Take 1 tablet by mouth once daily. 09/10/2021 Active carvedilol (Coreg) 6.25 mg tablet Take 1 tablet (6.25 mg) by mouth 2 times daily (morning and late afternoon). 06/25/2021 Active aspirin 81 mg EC tablet Take 1 tablet (81 mg) by mouth 3 (three) times a week. Active levothyroxine (Synthroid, Levoxyl) 100 mcg tablet Take 1 tablet (100 mcg) by mouth once daily. 06/25/2021 Active amLODIPine (Norvasc) 5 mg tablet Take 1 tablet (5 mg) by mouth once daily. Active gabapentin (Neurontin) 100 mg capsule Take 1 capsule (100 mg) by mouth 3 times a day. Active LORazepam (Ativan) 0.5 mg tablet Take 1 tablet (0.5 mg) by mouth every 6 hours if needed for anxiety. Active acetaminophen (Tylenol 8 HOUR) 650 mg ER tablet Take 1 tablet (650 mg) by mouth every 8 hours if needed for mild pain (1 - 3). Do not crush, chew, or split. Active predniSONE (Deltasone) 10 mg tablet Take 1 tablet (10 mg) by mouth once daily. 12/09/2024 Active Active Problems Problem Noted Date Diagnosed Date BMI 27.0-27.9,adult 04/16/2024 Never smoked any substance 06/19/2023 Aortic stenosis 06/04/2023 Carotid bruit 06/04/2023 White coat syndrome with diagnosis of hypertensi on 06/04/2023 Hyperlipidemia 06/04/2023 Hypothyroidism 06/04/2023 Murmur, cardiac 06/04/2023 PMR (polymyalgia rheumatica) (Multi) 06/04/2023 Encounters Date Type Department Care Team Description 01/14/2025 11:00 AM EDT Office Visit [address] [facility] [address] [place] [phone] Shy Wolf MD Nonrheumatic aortic valve stenosis (Primary Dx); 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; Hyperlipidemia, unspecified hyperlipidemia type; PMR (polymyalgia rheumatica) (Multi); Hypothyroidism, unspecified type; BMI 27.0-27.9,adult; Never smoked any substance; Overweight 01/14/2025 Travel 12/22/2024 Results Follow-Up [address] [place] [address] Shaniqua Daniels LPN Transthoracic Echo Complete 12/21/2024 12:29 PM EDT - 12/21/2024 11:59 PM EDT Hospital Encounter [facility] [address] [facility] [address] [place] [address] Aortic valve stenosis, etiology of cardiac valve disease unspecified Discharge Disposition: Home 12/21/2024 Travel 12/07/2024 3:00 PM EDT Office Visit [place] [id number] [facility] [address] [place] [address] Jayla Burns, ANNEALER HELPER-CORPORATE TECHNICAL RECRUITER 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 (Primary Dx); BMI 26.0-26.9,adult 12/07/2024 Travel 11/30/2024 Telephone [facility] [address] [facility] [address] [place] [address] Kinjal Angeles RN 11/29/2024 Scanned Document [facility] [address] [place] [address] Scanning, Generic Provider from Last 3 Months Immunizations Immunization Administration Dates Next Due Flu vaccine, trivalent, pres ervative free, HIGH-DOSE, age 65y+ (Fluzone) 03/09/2019 Flu vaccine, trivalent, pres ervative free, age 6 months and greater (Fluarix/Fluzone/Flulaval) 04/05/2014 Influenza Whole 03/09/2014 Influenza, Seasonal, Quadriv alent, Adjuvanted 04/02/2023,03/21/2022 Influenza, Unspecified 03/09/2018,2016,03/09/2016,03/09,03/09/2013,06/09/2011,06/09/2010 ,06/09/2009 Influenza, injectable, quadrivalent 04/07/2015,1 06/14/2011 Influenza, seasonal, injectable 02/08/2020,03/04 Influenza, trivalent, adjuvanted 024,03/06/2020,03/16/2018,03/28,04/01/2016 Moderna COVID-19 vaccine, 12 years and older (50mcg/0.5mL)(Spikevax) 04/07/2024,04/02/2023 Moderna COVID-19 vaccine, bi valent, blue cap/uribe label *Check age/dose* 04/17/2022 Novel [id number], preservative-free 05/30/2009 Pneumococcal conjugate vacci ne, 13-valent (PREVNAR 13) 05/24/2016,05/23/2016,03/09/2016 Pneumococcal conjugate vacci ne, 20-valent (PREVNAR 20) 04/23/2024 Pneumococcal polysaccharide vaccine, 23-valent, age 2 years and older (PNEUMOVAX 23) 04/28/2020,06/09/2006 RESPIRATORY SYNCYTIAL VIRUS (RSV), ELIGIBLE PTS, 0.5 ML (ABRYSVO) 06/07/2023 Zoster vaccine, recombinant, adult (SHINGRIX) 05/04/2019,02/04/2019 Family History Medical History Relation Name Comments CABG Father angina pectoris Father Aortic stenosis Sister Relation Name Status Comments Father Sister Social History Tobacco Use Types Packs/Day Years Used Date Smoking Tobacco: Never Smokeless Tobacco: Never Alcohol Use Standard Drinks/Week Comments Yes 1 (1 standard drink = 0.6 oz pur e alcohol) Comments Unknown Sex and Gender Information Value Date Recorded Sex Assigned at Not on file Legal Sex Female 8:57 AM EST Gender Identity Not on file Sexual Orientation Not on file Last Filed Vital Signs Vital Sign Reading Time Taken Comments Blood Pressure 168/78 01/14/2025 11:07 AM EDT Pulse 60 01/14/2025 11:07 AM EDT Temperature - - Respiratory Rate - - Oxygen Saturation - - Inhaled Oxygen Concentration - - Weight 68 kg (150 lb) 01/14/2025 11:07 AM EDT Height 157.5 cm (5' 2 ) 01/14/2025 11:07 AM EDT Body Mass Index 27.44 01/14/2025 11:07 AM EDT Plan of Treatment Upcoming Encounters Date Type Department Care Team (Late st Contact Info) Description 12/20/2025 10:45 AM EDT Appointment [place] [address] [place] [address] 01/26/2026 11:00 AM EDT Office Visit [address] [address] Shy Wolf MD 3 [facility] 2, [facility] [address] [place] [address] Health Maintenance Due Date Last Done Comments Lipid Panel 1935 TSH Level 1935 Hepatitis A Vaccines (1 of 2 - Risk 2-dose series) 08/11/1955 Hepatitis B Vaccines (1 of 3 - Risk 3-dose series) 1996 Bone Density Scan 02/19/2024 02/18/2022 COVID-19 Vaccine ( season) 2025 04/07/2024, 04/02/2023, 04/17/2022, Additional history exists Influenza Vaccine (#1) 2025 , 04/02/2023, 03/21/2022, Additional history exists Medicare Annual Wellness Visit (AWV) 08/07/2025 08/06/2024, 04/28/2020 DTaP/Tdap/Td Vaccines (2 - Td or Tdap) 05/12/2028 05/12/2018 Zoster Vaccines Completed 05/04/2019, 01/08, 10/19/2007 RSV High Risk: (Elderly (60+) or Population) Completed 06/07/2023 Pneumococcal Vaccine Completed 04/23/2024, 04/28/2020, 05/24/2016, Additional history exists HIB Vaccines Aged Out [...] on patient's age to complete this topic Procedures Procedure Name Priority Date/Time Associated Diagnosis Comments TRANSTHORACIC ECHO (TTE) COMPLETE Routine 12/21/2024 1:15 PM EDT Aortic valve stenosis, etiology of cardiac valve disease unspecified ECG 12-LEAD Routine 12/08/2024 6:10 PM EDT 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 from Last 3 Months Results * TRANSTHORACIC ECHO (TTE) COMPLETE (12/21/2024 1:15 PM EDT) AV mn grad 23 mmHg SYNGO AV pk haseeb 3.27 m/s SYNGO LV Biplane EF 71 % SYNGO LVOT diam 1.89 cm SYNGO MV E/A ratio 1.00 SYNGO Tricuspid annular plane systolic excursion 2.4 cm SYNGO MV avg E/e' ratio 15.93 SYNGO LA vol index A/L 43.4 ml/m2 SYNGO LV EF 68 % SYNGO RV free wall pk S' 11.98 cm/s SYNGO RVSP 34 mmHg SYNGO LVIDd 4.03 cm SYNGO Aortic Valve Area by Continuity of Peak Velocity 0.85 cm2 SYNGO AV pk grad 43 mmHg SYNGO Aortic Valve Area by Continuity of VTI 0.90 cm2 SYNGO LV A4C EF 76.9 SYNGO 12/21/2024 12:3 1 PM EDT Narrative SYNGO - 12/21/2024 4:50 PM EDT [address], [address], [place] [address] TRANSTHORACIC ECHOCARDIOGRAM REPORT Patient Name: LAVONNE Bahena Physician: [id number] Shy Wolf MD, [facility] Study Date: 12/21/2024 Ordering Provider: [id number] SHY WOLF MRN/PID: [id number] Fellow: Nurse: Date of /Age: 3 1935 / 89 years Pallet Sorter: Sheridan Lemus [facility], RVT Gender Assigned at F Additional Staff: : Height: 157.48 cm Admit Date: Weight: 65.77 kg Admission Status: Outpatient BSA / BMI: 1.67 m2 / 26.52 Department Location: [facility] kg/m2 [place] Blood Pressure: 146 /68 mmHg Study Type: TRANSTHORACIC ECHO (TTE) COMPLETE Diagnosis/ICD: Nonrheumatic aortic (valve) stenosis-I35.0 Indication: HTN, Hyperlipidemia, 2/6 Systolic Murmur, Hypothyroid CPT Codes: Echo Complete w Full Doppler-[id number] Study Detail: The following Echo studies were [...] VTI: 0.90 cm2 (2.5-5.5cm2) AoV Area,Vmax: 0.85 cm2 (2.5-4.5cm2) AoV Dimensionless Index: 0.32 RIGHT VENTRICLE: RV Basal 3.15 cm RV Mid 2.30 cm RV Major 5.9 cm TAPSE: 23.9 mm RV s' 0.12 m/s TRICUSPID VALVE/RVSP: Normal Ranges: Peak TR Velocity: 2.77 m/s Est. RA Pressure: 3 mmHg RV Syst Pressure: 34 mmHg (< 30mmHg) IVC Diam: 2.00 cm PULMONIC VALVE: Normal Ranges: RVOT Vmax: 0.91 m/s (0.6-0.9m/s) AORTA: Asc Ao Diam 3.69 cm [id number] Shy Wolf MD, [facility] Electronically signed on 12/21/2024 at 4:50:06 PM Final Procedure Note Shy Wolf MD - 12/21/[address], [address] [place] [address] TRANSTHORACIC ECHOCARDIOGRAM REPORT Patient Name: LAVONNE VILLATORO Reading Physician: [id number] Wolf MD,[facility] Study Date: 12/21/2024 Ordering Provider: [id number] CHANA WOLF MRN/PID: [id number] Fellow: Nurse: Date of /Age: 3 1935 / 89 years Pallet Sorter: Mary MALDONADO RVT Gender Assigned at F Additional Staff: : Height: 157.48 cm Admit Date: Weight: 65.77 kg Admission Status: Outpatient BSA / BMI: 1.67 m2 / 26.52 Department Location: [facility] kg/m2 [place] Blood Pressure: 146 /68 mmHg Study Type: TRANSTHORACIC ECHO (TTE) COMPLETE Diagnosis/ICD: Nonrheumatic aortic (valve) stenosis-I35.0 Indication: HTN, Hyperlipidemia, 2/6 Systolic Murmur, Hypothyroid CPT Codes: Echo Complete w Full Doppler-[id number] Study Detail: The following Echo studies were performed: 2D, M-Mode,Doppler and color flow. PHYSICIAN INTERPRETATION: Left Ventricle: Left ventricular ejection fraction is normal by visualestimate at 65-70%. There is mild left ventricular hypertrophy. There areno regional wall motion abnormalities. The left ventricular cavity size isnormal. There is mild increased septal and mildly increased posterior leftventricular wall thickness. There is left ventricular concentricremodeling. Spectral Doppler shows an abnormal pattern of left ventriculardiastolic filling. Left Atrium: The left atrial size is mild to moderately dilated. Right Ventricle: The right ventricle is normal in size. There is normalright ventricular global systolic function. Right Atrium: The right atrial size is normal. Aortic Valve: The aortic valve is trileaflet. The aortic valve area by VTIis 0.90 cm with a peak velocity of 3.27 m/s. The peak and meangradients are 41 mmHg and 23 mmHg, respectively, with a dimensionlessindex of 0.32. There is mild to moderate aortic valve cusp calcification.There is no evidence of aortic valve regurgitation. Mitral Valve: The mitral valve is mildly thickened. The doppler estimatedpeak and mean diastolic gradients are 8 mmHg and 3 mmHg, respectively.There is trace mitral valve regurgitation. The E Vmax is 1.22 m/s. Tricuspid Valve: The tricuspid valve is structurally normal. There istrace to mild tricuspid regurgitation. The Doppler estimated rightventricular systolic pressure (RVSP) is slightly elevated at 34 mmHg. Pulmonic Valve: The pulmonic valve is structurally normal. There is mildto moderate pulmonic valve regurgitation. Pericardium: No pericardial effusion noted. Aorta: The aortic root is normal. Systemic Veins: The inferior vena cava appears normal in size, with IVCinspiratory collapse greater than 50%. In comparison to the previous echocardiogram(s): When compared to studyfrom 02/11/2024, moderate pulmonary hypertension noted previously is nolonger seen. CONCLUSIONS: 1. Left ventricular ejection fraction is normal by visual estimate at65-70%. 2. Spectral Doppler shows an abnormal pattern of left ventriculardiastolic filling. 3. There is normal right ventricular global systolic function. 4. The left atrial size is mild to moderately dilated. 5. The Doppler estimated RVSP is slightly elevated at 34 mmHg. 6. Mild to moderate pulmonic valve regurgitation. 7. When compared to study from 02/11/2024, moderate pulmonary hypertensionnoted previously is no longer seen. QUANTITATIVE DATA [...] VTI: 0.90 cm2 (2.5-5.5cm2) AoV Area,Vmax: 0.85 cm2 (2.5-4.5cm2) AoV Dimensionless Index: 0.32 RIGHT VENTRICLE: RV Basal 3.15 cm RV Mid 2.30 cm RV Major 5.9 cm TAPSE: 23.9 mm RV s' 0.12 m/s TRICUSPID VALVE/RVSP: Normal Ranges: Peak TR Velocity: 2.77 m/s Est. RA Pressure: 3 mmHg RV Syst Pressure: 34 mmHg (< 30mmHg) IVC Diam: 2.00 cm PULMONIC VALVE: Normal Ranges: RVOT Vmax: 0.91 m/s (0.6-0.9m/s) AORTA: Asc Ao Diam 3.69 cm [id number] Shy Wolf MD, [facility] Electronically signed on 12/21/2024 at 4:50:06 PM Final us Shy Wolf MD CV ECHO PROCEDURES Final Res ult SYNGO * ECG 12 Lead (12/08/2024 6:10 PM EDT) Narrative Shy Wolf MD - 12/08/2024 6:10 PM EDT ECG revealed normal sinus rhythm, normal ECG us Jayla Burns ANNEALER HELPER-CORPORATE TECHNICAL RECRUITER ECG ORDERABLES Final Res ult from Last 3 Months Insurance MEDICARE RAILROAD [facility] Care Teams Industrial Electrical Technician Relationship Specialty Start Date End Date Suhas Arizmendi DO [address] [place] [address] PCP - General Family Medicine 01/30/24
--- OUTSIDE RECORDS SUMMARY | 2025-02-14 07:29 | XMS_ITS | Clinical Summary ---
Author Organization [facility] Address [address] [place] [address] Care Team Providers Care Engineer Design And Construction Name Role Phone Unavailable Primary Care Provider [...] of Treatment Not on [place] [phone]
--- OUTSIDE RECORDS SUMMARY | 2025-02-14 07:29 | XMS_ITS | Clinical Summary ---
Author Organization [facility] Address [address] [place] [address] Care Team Providers Care Office Machine Mechanic Name Role Phone Suhas Arizmendi DO Unavailable Suhas Arizmendi DO Primary Care Provider [phone] Allergies Active Allergy Reactions Criticality Noted Date [...] once a day 0 03/29/2005 Active VIT [id number] ACID-MAG OX 100 UNIT-2.05 MG TAB Vit [...] Vaccine (1 - 1-dose 75+ series) 08/11/2011 Advance Directive Discussion 06/09/2024 Influenza Vaccine (#1) 2025 Insurance MEDICARE RAILROAD Care Teams Office Machine Mechanic Relationship Specialty Start Date End Date Suhas Arizmendi DO [address] [place] [address] PCP - General Family Medicine 07/23/23 Suhas Arizmendi DO [address] [place] [address] Referring Family Medicine 07/23/23
--- OUTSIDE RECORDS SUMMARY | 2025-02-14 07:29 | XMS_ITS | Encounter Summary ---
Author Organization [facility] Address [address] [place] [address] Phone Care Team Providers Care Knit Goods Washer Name Role Phone Suhas Arizmendi DO Primary Care Provider [phone] Suhas Arizmendi DO Primary Care Provider [phone] Encounter Details Date Type Department Care Team (Late st Contact Info) Description 12/18/2020 Orders Only [facility] [address] [place] [address] Conversion, Onbase Social History Tobacco Use Types [...] Info) Description 12/20/2025 10:45 AM EDT Appointment [address] [place] [address] 01/26/2026 11:00 AM EDT Office Visit [address] [place] [address] Michel Wolf MD [address]03 [facility] 2, [place] [address] [place] [address] Scheduled Orders Name Type Priority Associated Diagnoses Orde r Schedule OUTSIDE LAB SCAN Lab Ordered: 12/18/2020 OUTSIDE LAB SCAN Lab Ordered: 12/18/2020 documented as of this encounter Visit Diagnoses Not on filedocumented in this encounter Care Teams Knit Goods Washer Relationship Specialty Start Date End Date Suhas Arizmendi DO PCP - General 06/09/99 01/29/24 Suhas Arizmendi DO [address] [place] [address] PCP - General Family Medicine 01/30/24 documented as of this encounter
--- OUTSIDE RECORDS SUMMARY | 2025-02-14 07:29 | XMS_ITS | Encounter Summary ---
Author Organization [facility] Address [address] [place] [address] Phone Care Team Providers Care Physical Integration Practitioner Name Role Phone Suhas Arizmendi DO Primary Care Provider [phone] Suhas Arizmendi DO Primary Care Provider [phone] Encounter Details Date Type Department Care Team (Late st Contact Info) Description 02/26/2023 Scanned Document [facility] [address] [place] [address] Conversion, Onbase Social History Tobacco Use Types [...] Info) Description 12/20/2025 10:45 AM EDT Appointment [place] [address] [facility] [address] [place] [address] 01/26/2026 11:00 AM EDT Office Visit [address] [place] [address] Michel Wolf MD 703 [facility] 2, [address] [place], [place] [phone] documented as of this encounter Procedures Procedure Name Priority Date/Time Associated Diagnosis Comments ECHOCARDIOGRAM 02/26/2023 documented in this encounter Results * ECHOCARDIOGRAM (02/26/2023) Narrative 02/26/2023 Ordered by an unspecified provider. us Onbase Conversion CV ECHO PROCEDURES Final Resul t documented in this encounter Visit Diagnoses Not on filedocumented in this encounter Care Teams Physical Integration Practitioner Relationship Specialty Start Date End Date Suhas Arizmendi DO PCP - General 06/09/99 01/29/24 Suhas Arizmendi DO [address] [place] [address] PCP - General Family Medicine 01/30/24 documented as of this encounter
--- OUTSIDE RECORDS SUMMARY | 2025-02-14 07:29 | XMS_ITS | Encounter Summary ---
Author Organization [facility] Address [address] [place] [address] Phone Care Team Providers Care Horticultural Agent Name Role Phone Suhas Arizmendi Primary Care Provider [phone] Encounter Details Date Type Department Care Team (Late st Contact Info) Description 11/29/2024 Scanned Document [facility] [address] [place] [phone] Scanning, Generic Provider Social History Tobacco Use [...] Info) Description 12/20/2025 10:45 AM EDT Appointment [address] [place] [address] 01/26/2026 11:00 AM EDT Office Visit [address] [place] [address] Michel Wolf MD 703 [facility] [address], [address] [place] [address] documented as of this encounter Visit Diagnoses Not on filedocumented in this encounter Additional Health Concerns Assessment Noted Time A fall risk assessment has been complete d for the patient 06/19/2023 11:09 AM EST documented as of this encounter Care Teams Horticultural Agent Relationship Specialty Start Date End Date Suhas Arizmendi DO [address] [place] [id number] PCP - General Family Medicine 01/30/24 documented as of this encounter
--- OUTSIDE RECORDS SUMMARY | 2025-02-14 07:29 | XMS_ITS | Encounter Summary ---
Author Organization [facility] Address [address] [place] [id number] Phone Care Team Providers Care Platemaker Name Role Phone Suhas Arizmendi DO Primary Care Provider [phone] Suhas Arizmendi DO Primary Care Provider [phone] Encounter Details Date Type Department Care Team (Late st Contact Info) Description 04/19/2019 Orders Only [facility] [address] [place] [address] Conversion, Onbase Social History Tobacco Use Types [...] Info) Description 12/20/2025 10:45 AM EDT Appointment [address] [place] [address] 01/26/2026 11:00 AM EDT Office Visit [address] [place] [phone] Michel Wolf MD 703 [facility] 2, [address] [place], [place] [phone] Scheduled Orders Name Type Priority Associated Diagnoses Orde r Schedule OUTSIDE LAB SCAN Lab Ordered: 04/19/2019 documented as of this encounter Visit Diagnoses Not on filedocumented in this encounter Care Teams Platemaker Relationship Specialty Start Date End Date Suhas Arizmendi DO PCP - General 06/09/99 01/29/24 Suhas Arizmendi [place] [address] PCP - General Family Medicine 01/30/24 documented as of this encounter
--- OUTSIDE RECORDS SUMMARY | 2025-02-14 07:30 | XMS_ITS | CCD ---
Author Organization [facility] Emergency Department Care Team Providers Care Acquisition Professional Name Role Phone Suhas Garrett Unavailable Suhas [...] able Suhas Garrett DO Primary Care Provider [phone] Suhas Garrett DO Primary Care Provider Suhas Garrett Primary [...] Unavailable Suhas Garrett DO Primary Care Provider [phone] SHY WOLF Referring Unavailable SUHAS GARRETT Primary [...] Translations: [Fosamax] Drug Allergy 3 Unknown, Other [facility] Repository (20 sources) Amoxicillin; Translations: [amoxicillin] Drug Allergy 9 hives [facility] [employer] Other (20 sources) Phenytoin; Translations: [Dilantin CAPS] Drug Allergy 3 Rash [employer] [facility] [employer] Other (20 sources) Valproate; Translations: [Depakote ER TB24] Drug Allergy Unknown [employer] [facility] [employer] Other (1 source) Alendronate Drug Allergy [facility] Repository (1 source) Amoxicillin Drug Allergy [facility] Repository (1 source) Phenytoin Drug Allergy [facility] Repository (1 source) Valproate Drug Allergy [facility] Repository (20 sources) Acetaminophen / HYDROcodone Drug Allergy elevated liver enzymes [facility] [employer] Other (6 sources) Alendronate Drug Allergy 3 Unknown, Other [facility] (8 sources) HYDROcodone; Translations: [HYDROCODONE] Drug Allergy 4 GI Upset [facility] Work Phone: (8 sources) Valproate; Translations: [VALPROIC ACID] Drug Allergy 3 Unknown [facility] Work Phone: (1 source) Acetaminophen Drug Allergy 4 [facility] Repository (1 source) Alendronate Drug Allergy 4 [facility] Repository (1 source) Amoxicillin Drug Allergy 4 [facility] Repository (1 source) HYDROcodone Drug Allergy 4 [facility] Repository (1 source) Phenytoin Drug Allergy 4 [facility] Repository (1 source) Valproate Drug Allergy 4 [facility] Repository (5 sources) Valproate; Translations: [DIVALPROEX] Drug Allergy 5 [facility] Work Phone: Medications Current Medications Medication [...] tablet by mouth once daily. 0 Active [place] 3 1000 MG (20 sources) take 1 capsule by mouth once daily [place] 3 1000 MG 1 capsule with a meal Orally Once a day Active predniSONE 10 mg oral tablet (20 sources) Start: 12-09-2024 take 1 tablet by mouth once daily predniSONE (Deltasone) 10 mg tablet Take 1 tablet (10 mg) by mouth once daily. 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] Onset: 02-22-2022 Episodic Other [...] Interpretation Reference Range Facility TRANSTHORACIC ECHO (TTE) [facility] 12-21-2024 TRANSTHORACIC ECHO (TTE) [address], [address] [place] [address] TRANSTHORACIC ECHOCARDIOGRAM REPORT Patient Name: LAVONNE Bahena Physician: [id number] Shy Wolf MD, [facility] Study Date: 12/21/2024 Ordering Provider: [id number] SHY WOLF MRN/PID: [id number] Fellow: Nurse: Date of /Age: 3 1935 / 89 years Biology Intern: Sheridan Lmeus RDCS, RVT Gender Assigned at F Additional Staff: : Height: 157.48 cm Admit Date: Weight: 65.77 kg Admission Status: Outpatient BSA / BMI: 1.67 m2 / 26.52 Department Location: [facility] Heart kg/m2 [place] Blood Pressure: 146 /68 mmHg Study Type: TRANSTHORACIC ECHO (TTE) COMPLETE Diagnosis/ICD: Nonrheumatic aortic (valve) stenosis-I35.0 Indication: HTN, Hyperlipidemia, 2/6 Systolic Murmur, Hypothyroid CPT Codes: Echo Complete w Full Doppler-54185 Study Detail: The following Echo studies were [...] 0.85 cm (more content not included)... Normal [facility] US Heart Transthoracicon Aortic Valve Area by Continuity of Peak Velocity 0.85 cm2 [facility] Work Phone: Aortic Valve Area by Continuity of VTI 0.9 cm2 [facility] Work Phone: AV mn grad 23 mmHg [facility] Work Phone: AV pk grad 43 mmHg [facility] Work Phone: AV pk haseeb 3.27 m/s [facility] Work Phone: LA vol index A/L 43.4 ml/m2 [facility] Work Phone: LV A4C EF 76.9 [facility] Work Phone: LV Biplane EF 71 % [facility] Work Phone: LV EF 68 % [facility] Work Phone: LVIDd 4.03 cm [facility] Work Phone: LVOT diam 1.89 cm [facility] Work Phone: MV avg E/e' ratio 15.93 [facility] Work Phone: MV E/A ratio 1 [facility] Work Phone: RV free wall pk S' 11.98 cm/s [facility] Work Phone: RVSP 34 mmHg [facility] Work Phone: Tricuspid annular plane systolic excursion 2.4 cm [facility] Work Phone: [address], [place] [address] TRANSTHORACIC ECHOCARDIOGRAM REPORT Patient Name: LAVONNE VILLATORO Reading Physician: [id number] Wolf MD, [facility] Study Date: 12/21/2024 Ordering Provider: [id number] SHY WOLF MRN/PID: [id number] Fellow: Nurse: Date of /Age: 3 1935 / 89 years Biology Intern: Sheridan Lemus RDCS T Gender Assigned at F Additional Staff: : Height: 157.48 cm Admit Date: Weight: 65.77 kg Admission Status: Outpatient BSA / BMI: 1.67 m2 / 26.52 Department Location: [facility] Heart kg/m2 [place] Blood Pressure: 146 /68 mmHg Study Type: TRANSTHORACIC ECHO (TTE) COMPLETE Diagnosis/ICD: Nonrheumatic aortic (valve) stenosis-I35.0 Indication: HTN, Hyperlipidemia, 2/6 Systolic Murmur, Hypothyroid CPT Codes: Echo Complete w Full Doppler-71070 Study Detail: The following Echo studies were [...] included)... Shy Winn M D - 12/21/[address], [address] [place] [address] TRANSTHORACIC ECHOCARDIOGRAM REPORT Patient Name: LAVONNE Bahena Physician: [id number] Shy Wolf MD, [facility] Study Date: 12/21/2024 Ordering Provider: [id number] SHY WOLF MRN/PID: [id number] Fellow: Nurse: Date of /Age: 3 1935 / 89 years Biology Intern: Sheridan Lemus RDCS RVT Gender Assigned at F Additional Staff: : Height: 157.48 cm Admit Date: Weight: 65.77 kg Admission Status: Outpatient BSA / BMI: 1.67 m2 / 26.52 Department Location: [facility] Blood Pressure: 146 /68 mmHg Study Type: TRANSTHORACIC ECHO (TTE) COMPLETE Diagnosis/ICD: Nonrheumatic aortic (valve) stenosis-I35.0 Indication: HTN, Hyperlipidemia, 2/6 Systolic Murmur, Hypothyroid CPT Codes: Echo Complete w Full Doppler-69910 Study Detail: The following Echo studies were [...] (18-25cm) LVOT VTI: (more content not included)... [facility] Work Phone: [facility] Work Phone: Complete Blood Count Auto Di ffon 07-28-2024 Basophils (Bld) [#/Vol] 0.1 10*3/uL Normal 0.0-0.2 [facility] Comment on above: Performed By: #### V [id number], CMP, TSH3, LIPID, CBC, T4F, ESR #### [address] Basophils/100 WBC (Bld) 1.1 % Normal . [facility] Comment on above: Performed By: #### V [id number], CMP, TSH3, LIPID, CBC, T4F, ESR #### [address] Eosinophils (Bld) [#/Vol] 0.1 10*3/uL Normal 0.0-0.45 [facility] Comment on above: Performed By: #### V [id number], CMP, TSH3, LIPID, CBC, T4F, ESR #### [address] Eosinophils/100 WBC (Bld) 2.2 % Normal . [facility] Comment on above: Performed By: #### V [id number], CMP, TSH3, LIPID, CBC, T4F, ESR #### [address] Erythrocyte distribution width (RBC) [Ratio] 13.5 % Normal 11.9-15.3 [facility] Comment on above: Performed By: #### V [id number], CMP, TSH3, LIPID, CBC, T4F, ESR #### [address] Hematocrit (Bld) [Volume fraction] 37.9 % Normal 34.0-46.4 [facility] Comment on above: Performed By: #### V [id number], CMP, TSH3, LIPID, CBC, T4F, ESR #### [address] Hemoglobin (Bld) [Mass/Vol] 12.9 g/dL Normal 11.8-15.4 [facility] Comment on above: Performed By: #### V [id number], CMP, TSH3, LIPID, CBC, T4F, ESR #### [address] Lymphocytes (Bld) [#/Vol] 2.2 10*3/uL Normal 1.00-4.8 [facility] Comment on above: Performed By: #### V [id number], CMP, TSH3, LIPID, CBC, T4F, ESR #### [address] Lymphocytes/100 WBC (Bld) 34.3 % Normal . [facility] Comment on above: Performed By: #### V [id number], CMP, TSH3, LIPID, CBC, T4F, ESR #### [address] MCH (RBC) [Entitic mass] 33.5 pg Normal 24.7-34.3 [facility] Comment on above: Performed By: #### V [id number], CMP, TSH3, LIPID, CBC, T4F, ESR #### [address] MCV (RBC) [Entitic vol] 98.4 fL Normal 80-100 [facility] Comment on above: Performed By: #### V [id number], CMP, TSH3, LIPID, CBC, T4F, ESR #### [address] Mean Corpuscular HGB Conc 34.1 g/dL Normal 32.0-35.0 [facility] Comment on above: Performed By: #### V [id number], CMP, TSH3, LIPID, CBC, T4F, ESR #### [address] Monocytes (Bld) [#/Vol] 0.6 10*3/uL Normal 0.0-0.8 [facility] Comment on above: Performed By: #### V [id number], CMP, TSH3, LIPID, CBC, T4F, ESR #### [address] Monocytes/100 WBC (Bld) 9.8 % Normal . [facility] Comment on above: Performed By: #### V [id number], CMP, TSH3, LIPID, CBC, T4F, ESR #### [address] Neutrophils (Bld) [#/Vol] 3.4 10*3/uL Normal 1.8-7.7 [facility] Comment on above: Performed By: #### V [id number], CMP, TSH3, LIPID, CBC, T4F, ESR #### [address] Neutrophils/100 WBC (Bld) 52.6 % Normal . [facility] Comment on above: Performed By: #### V [id number], CMP, TSH3, LIPID, CBC, T4F, ESR #### [address] NRBC% 0.3 /100{WBC} Normal 0-0.5 [facility] Comment on above: Performed By: #### V [id number], CMP, TSH3, LIPID, CBC, T4F, ESR #### [address] Platelet mean volume (Bld) [Entitic vol] 9.3 fL Normal 6.3-10.7 [facility] Comment on above: Performed By: #### V [id number], CMP, TSH3, LIPID, CBC, T4F, ESR #### [address] Platelets (Bld) [#/Vol] 208 10*3/uL Normal 150-450 [facility] Comment on above: Performed By: #### V [id number], CMP, TSH3, LIPID, CBC, T4F, ESR #### [address] RBC (Bld) [#/Vol] 3.85 10*6/uL Normal 3.60-5.00 [facility] Comment on above: Performed By: #### V [id number], CMP, TSH3, LIPID, CBC, T4F, ESR #### [address] WBC (Bld) [#/Vol] 6.6 10*3/uL Normal 3.8-11.6 [facility] Comment on above: Performed By: #### V [id number], CMP, TSH3, LIPID, CBC, T4F, ESR #### [address] Comprehensive Metabolic Pane nory 07-28-2024 Albumin [Mass/Vol] 3.7 g/dL Normal 3.5-5.7 [facility] Comment on above: Performed By: #### V [id number], CMP, TSH3, LIPID, CBC, T4F, ESR #### [address] Albumin/Globulin [Mass ratio] 1.9 {ratio} Normal [facility] Comment on above: Performed By: #### V [id number], CMP, TSH3, LIPID, CBC, T4F, ESR #### [address] ALP [Catalytic activity/Vol] 62 U/L Normal 34-104 [facility] Comment on above: Performed By: #### V [id number], CMP, TSH3, LIPID, CBC, T4F, ESR #### [address] ALT [Catalytic activity/Vol] 21 U/L Normal 7-52 [facility] Comment on above: Performed By: #### V [id number], CMP, TSH3, LIPID, CBC, T4F, ESR #### [address] Anion gap [Moles/Vol] 8.2 mmol/L Normal 6.0-15.0 [facility] Comment on above: Performed By: #### V [id number], CMP, TSH3, LIPID, CBC, T4F, ESR #### [address] AST [Catalytic activity/Vol] 19 U/L Normal 13-39 [facility] Comment on above: Performed By: #### V [id number], CMP, TSH3, LIPID, CBC, T4F, ESR #### [address] Bilirubin [Mass/Vol] 0.7 mg/dL Normal 0.3-1.0 [facility] Comment on above: Performed By: #### V [id number], CMP, TSH3, LIPID, CBC, T4F, ESR #### [address] Calcium [Mass/Vol] 9.7 mg/dL Normal 8.6-10.3 [facility] Comment on above: Performed By: #### V [id number], CMP, TSH3, LIPID, CBC, T4F, ESR #### [address] Chloride [Moles/Vol] 107 mmol/L Normal 98-107 [facility] Comment on above: Performed By: #### V [id number], CMP, TSH3, LIPID, CBC, T4F, ESR #### [address] CO2 [Moles/Vol] 31.5 mmol/L High 21.0-31.0 [facility] Comment on above: Performed By: #### V [id number], CMP, TSH3, LIPID, CBC, T4F, ESR #### [address] Creatinine [Mass/Vol] 0.67 mg/dL Normal 0.60-1.20 [facility] Comment on above: Performed By: #### V [id number], CMP, TSH3, LIPID, CBC, T4F, ESR #### [address] GFR/1.73 sq M.predicted MDRD (S/P/Bld) [Vol rate/Area] mL/min/{1.73_m2} Normal [facility] Comment on above: Performed By: #### V [id number], CMP, TSH3, LIPID, CBC, T4F, ESR #### [address] Globulin (S) [Mass/Vol] 1.9 g/dL Normal [facility] Comment on above: Performed By: #### V [id number], CMP, TSH3, LIPID, CBC, T4F, ESR #### [address] Glucose [Mass/Vol] 89 mg/dL Normal 70-100 [facility] Comment on above: Result Comment: [facility] Glucose Reference Range is dependent on time and content of last meal. Glucose of more than 200 mg/dL in a nonstressed, ambulatory subject supports the diagnosis of Diabetes Mellitus. ADA recommended reference range Performed By: #### V [id number], CMP, TSH3, LIPID, CBC, T4F, ESR #### [address] Potassium [Moles/Vol] 3.7 mmol/L Normal 3.5-5.1 [facility] Comment on above: Performed By: #### V [id number], CMP, TSH3, LIPID, CBC, T4F, ESR #### [address] Protein [Mass/Vol] 5.6 g/dL Low 6.4-8.9 [facility] Comment on above: Performed By: #### V [id number], CMP, TSH3, LIPID, CBC, T4F, ESR #### [address] Sodium [Moles/Vol] 143 mmol/L Normal 136-145 [facility] Comment on above: Performed By: #### V [id number], CMP, TSH3, LIPID, CBC, T4F, ESR #### [address] Urea nitrogen [Mass/Vol] 19 mg/dL Normal 7-25 [facility] Comment on above: Performed By: #### V [id number], CMP, TSH3, LIPID, CBC, T4F, ESR #### [address] Erythrocyte Sedimentation Ra amy 07-28-2024 ESR (Bld) [Velocity] 9 mm/h Normal 0-29 [facility] Comment on above: Result Comment: PERF ORMED BY: [place] [address] PATHOLOGIST AIRVEYOR OPERATOR JASIEL HURTADO M.D. Performed By: #### V [id number], CMP, TSH3, LIPID, CBC, T4F, ESR #### [address] Free T4 (Free Thyroxine)on 0 07-28-2024 Free T4 [Mass/Vol] 0.74 ng/dL Normal 0.61-1.12 [facility] Comment on above: Performed By: #### L IPID, TSH3, CMP, CBC #### [address] Lipid Panelon 07-28-2024 Cholesterol [Mass/Vol] 228 mg/dL High 140-200 [facility] Comment on above: Result Comment: Chol less than 200 mg/dl low risk Chol 201-239 mg/dl borderline risk Chol 240 mg/dl and greater high risk Performed By: #### V [id number], CMP, TSH3, LIPID, CBC, T4F, ESR #### [address] Cholesterol in HDL [Mass/Vol] 96 mg/dL High 23-92 [facility] Comment on above: Result Comment: HDL CHOL ATP-III CLASSIFICATION Cardiovascular Risk HDL > or equal to 60 mg/dL LOW HDL < 40 mg/dL HIGH Performed By: #### V [id number], CMP, TSH3, LIPID, CBC, T4F, ESR #### [facility] [address] [place] [address] [facility] Cholesterol.total/Ch olesterol in HDL [Mass ratio] 2.4 {ratio} Normal <5.0 [facility] Comment on above: Performed By: #### V [id number], CMP, TSH3, LIPID, CBC, T4F, ESR #### [facility] [address] LDL Cholesterol,Calculat ed 121 mg/dL High 0-100 [facility] Comment on above: Result Comment: LDL ATP III CLASSIFICATION LDL less than 100 mg/dL Optimal LDL 100-129 mg/dL Near or above optimal LDL 130-159 mg/dL Borderline high LDL 160-189 mg/dL High LDL greater than 189 mg/dL Very high Performed By: #### V [id number], CMP, TSH3, LIPID, CBC, T4F, ESR #### [facility] [address] [place] [id number] [facility] Triglyceride w/Reflex 57 mg/dL Normal 0-149 [facility] Comment on above: Result Comment: TRIG ATP III CLASSIFICATION TRIG less than 150 mg/dL Normal TRIG 150-199 mg/dL Borderline high TRIG 200-500 mg/dL High TRIG greater than 500 mg/dL Very high Standard traceable to the Center for Disease Conrtrol and Prevention (CDC) test method. Performed By: #### V [id number], CMP, TSH3, LIPID, CBC, T4F, ESR #### [facility] [address] [place] [id number] [facility] VLDL CHOLESTEROL 11 mg/dL Normal [facility] Comment on above: Performed By: #### V [id number], CMP, TSH3, LIPID, CBC, T4F, ESR #### [facility] [address] [place] [id number] [facility] Thyroid Stimulating Hormoneo n 07-28-2024 TSH Qn 6.38 m[IU]/L High 0.45-5.33 [facility] Comment on above: Performed By: #### L IPID, TSH3, CMP, CBC #### [address] Vitamin D 25 Hydroxy Totalon 07-28-2024 Vitamin D 25 Hydroxy Total 28.4 ng/mL Low 30-100 [facility] Comment on above: Result Comment: ANJU MIN D STATUS 25(OH)VITAMIN D RANGE (ng/mL) Deficient <20 Insufficient 20 to <30 Sufficient 30 to 100 Reference: Yolanda MF,Nathan NC, Keshawn FRANCO, et al. Evaluation,treatment, and prevention of vitamin D deficiency; an Endocrine Society clinical practice guideline. JCEM. 2010; 96(7):1911-30. PERFORMED BY: [place] [address] PATHOLOGIST AIRVEYOR OPERATOR JASIEL HURTADO M.D. Performed By: #### L IPID, TSH3, CMP, CBC #### [address] XR scapula LT*on 05-25-2024 XR scapula LT* [facility] [address] [place] [address] [place] [address] XRay Report Signed Patient: Lavonne Villatoro MR#: [id number] : 1935 Acct:[id number] Age/Sex: 88 / F ADM Date: 05/25/24 Loc: XD Room: Type: [facility] Attending Dr: Suhas Garrett DO Copies to: Suhas Garrett DO Ordering Provider: Suhas Garrett DO Date of Service: 05/25/24 XR/XR shoulder LT min 2V*: M25.519 - Pain in unspecified shoulder ([id number]) XR/XR scapula LT*: M25.519 - Pain in [...] M.D.05/25/2024 4:45 PM Dictation Location: [place] [address] Transcribed By: [facility] 05/25/24 1645 Dictated By: Casandra Gómez MD 05/25/241641 Signed By: 05/25/24 1645 Normal [facility] TRANSTHORACIC ECHO (TTE) [facility] 02-11-2024 TRANSTHORACIC ECHO (TTE) COMPLETE [address], [address] [place] [address] TRANSTHORACIC ECHOCARDIOGRAM REPORT Patient Name: LAVONNE Bahena Physician: [id number] Wolf MD, [facility] Study Date: 02/11/2024 Ordering Provider: [id number] SHY WOLF MRN/PID: [id number] Fellow: Nurse: Date of /Age: 3 1935 / 88 years Biology Intern: LILIA Gender: F Additional Staff: Height: 157.48 cm Admit Date: Weight: 69.40 kg Admission Status: BSA / BMI: 1.71 m2 / 27.98 kg/m2 Department Location: [facility] Blood Pressure: 116 /76 mmHg Study Type: TRANSTHORACIC ECHO (TTE) COMPLETE Diagnosis/ICD: Nonrheumatic aortic (valve) stenosis-I35.0 Indication: HTN, Hyperlipidemia, 3/6 Systolic Murmur, Hypothryoid, Overweight CPT Codes: Echo Complete w Full Doppler-52849 Study Detail: The following Echo studies were [...] mmHg PIEDV: 2.23 m/s PADP: 22.9 mmHg [id number] Shy Wolf MD, [facility] Electronical (more content not included)... [facility] US carotid doppler BIon 05-0 US carotid doppler BI [facility] [address] [place] [address] [place] [address] Ultrasound Report Signed Patient: Lavonne Villatoro MR#: [id number] : 1935 Acct:[id number] Age/Sex: 88 / F ADM Date: 10/14/23 Loc: Room: Type: [facility] Attending Dr: Suhas Garrett DO Ordering [...] Hola Wynn M.D.10/15/2023 11:47 AM Dictation Location: [place] [address] Tech: Jackie Aguillon Transcribed By: KIRILL 10/15/23 1147 Dictated By: Hola Wynn MD 10/15/23 1145 Signed By: 10/15/23 1147 Normal [facility] Complete Blood Count Auto Di ffon 09-03-2023 Basophils (Bld) [#/Vol] 0.0 10*3/uL Normal 0.0-0.2 [facility] Comment on above: Result Comment: PERF ORMED BY: [place] [address] PATHOLOGIST AIRVEYOR OPERATOR JODY SOLANO M.D. Performed By: #### L IPID, TSH3, CMP, CBC #### [facility] [address] [place] [address] [place] Basophils/100 WBC (Bld) 0.7 % Normal . [facility] Comment on above: Performed By: #### L IPID, TSH3, CMP, CBC #### [facility] [address] [place] [address] [place] Eosinophils (Bld) [#/Vol] 0.1 10*3/uL Normal 0.0-0.45 [facility] Comment on above: Performed By: #### L IPID, TSH3, CMP, CBC #### [place] [address] [place] Eosinophils/100 WBC (Bld) 1.6 % Normal . [facility] Comment on above: Performed By: #### L IPID, TSH3, CMP, CBC #### [address] Erythrocyte distribution width (RBC) [Ratio] 14.8 % Normal 11.9-15.3 [facility] Comment on above: Performed By: #### L IPID, TSH3, CMP, CBC #### [address] Hematocrit (Bld) [Volume fraction] 39.9 % Normal 34.0-46.4 [facility] Comment on above: Performed By: #### L IPID, TSH3, CMP, CBC #### [address] Hemoglobin (Bld) [Mass/Vol] 13.2 g/dL Normal 11.8-15.4 [facility] Comment on above: Performed By: #### L IPID, TSH3, CMP, CBC #### [address] Lymphocytes (Bld) [#/Vol] 2.6 10*3/uL Normal 1.00-4.8 [facility] Comment on above: Performed By: #### L IPID, TSH3, CMP, CBC #### [address] Lymphocytes/100 WBC (Bld) 43.5 % Normal . [facility] Comment on above: Performed By: #### L IPID, TSH3, CMP, CBC #### [address] MCH (RBC) [Entitic mass] 33.2 pg Normal 24.7-34.3 [facility] Comment on above: Performed By: #### L IPID, TSH3, CMP, CBC #### [address] MCV (RBC) [Entitic vol] 100.5 fL High 80-100 [facility] Comment on above: Performed By: #### L IPID, TSH3, CMP, CBC #### [address] Mean Corpuscular HGB Conc 33.0 g/dL Normal 32.0-35.0 [facility] Comment on above: Performed By: #### L IPID, TSH3, CMP, CBC #### [address] Monocytes (Bld) [#/Vol] 0.6 10*3/uL Normal 0.0-0.8 [facility] Comment on above: Performed By: #### L IPID, TSH3, CMP, CBC #### [address] Monocytes/100 WBC (Bld) 9.7 % Normal . [facility] Comment on above: Performed By: #### L IPID, TSH3, CMP, CBC #### [address] Neutrophils (Bld) [#/Vol] 2.7 10*3/uL Normal 1.8-7.7 [facility] Comment on above: Performed By: #### L IPID, TSH3, CMP, CBC #### [place] [address] [place] Neutrophils/100 WBC (Bld) 44.5 % Normal . [facility] Comment on above: Performed By: #### L IPID, TSH3, CMP, CBC #### [address] NRBC% 0.2 /100{WBC} Normal 0-0.5 [facility] Comment on above: Performed By: #### L IPID, TSH3, CMP, CBC #### [place] [address] [place] Platelet mean volume (Bld) [Entitic vol] 9.2 fL Normal 6.3-10.7 [facility] Comment on above: Performed By: #### L IPID, TSH3, CMP, CBC #### [place] [address] [place] Platelets (Bld) [#/Vol] 229 10*3/uL Normal 150-450 [facility] Comment on above: Performed By: #### L IPID, TSH3, CMP, CBC #### [address] RBC (Bld) [#/Vol] 3.98 10*6/uL Normal 3.60-5.00 [facility] Comment on above: Performed By: #### L IPID, TSH3, CMP, CBC #### [address] WBC (Bld) [#/Vol] 6.0 10*3/uL Normal 3.8-11.6 [facility] Comment on above: Performed By: #### L IPID, TSH3, CMP, CBC #### [address] Comprehensive Metabolic Pane nory 09-03-2023 Albumin [Mass/Vol] 3.8 g/dL Normal 3.5-5.7 [facility] Comment on above: Performed By: #### L IPID, TSH3, CMP, CBC #### [address] Albumin/Globulin [Mass ratio] 1.7 {ratio} Normal [facility] Comment on above: Performed By: #### L IPID, TSH3, CMP, CBC #### [address] ALP [Catalytic activity/Vol] 72 U/L Normal 34-104 [facility] Comment on above: Performed By: #### L IPID, TSH3, CMP, CBC #### [address] ALT [Catalytic activity/Vol] 43 U/L Normal 7-52 [facility] Comment on above: Performed By: #### L IPID, TSH3, CMP, CBC #### [address] Anion gap [Moles/Vol] 8.9 mmol/L Normal 6.0-15.0 [facility] Comment on above: Performed By: #### L IPID, TSH3, CMP, CBC #### [address] AST [Catalytic activity/Vol] 23 U/L Normal 13-39 [facility] Comment on above: Performed By: #### L IPID, TSH3, CMP, CBC #### [address] Bilirubin [Mass/Vol] 1.2 mg/dL High 0.3-1.0 [facility] Comment on above: Performed By: #### L IPID, TSH3, CMP, CBC #### [address] Calcium [Mass/Vol] 9.5 mg/dL Normal 8.6-10.3 [facility] Comment on above: Performed By: #### L IPID, TSH3, CMP, CBC #### [place] [address] [place] Chloride [Moles/Vol] 107 mmol/L Normal 98-107 [facility] Comment on above: Performed By: #### L IPID, TSH3, CMP, CBC #### [place] [address] [place] CO2 [Moles/Vol] 30.0 mmol/L Normal 21.0-31.0 [facility] Comment on above: Performed By: #### L IPID, TSH3, CMP, CBC #### [place] [address] [place] Creatinine [Mass/Vol] 0.76 mg/dL Normal 0.60-1.20 [facility] Comment on above: Performed By: #### L IPID, TSH3, CMP, CBC #### [place] [address] [place] GFR/1.73 sq M.predicted MDRD (S/P/Bld) [Vol rate/Area] mL/min/{1.73_m2} Normal [facility] Comment on above: Performed By: #### L IPID, TSH3, CMP, CBC #### [address] [place] [address] [place] Globulin (S) [Mass/Vol] 2.2 g/dL Normal [facility] Comment on above: Performed By: #### L IPID, TSH3, CMP, CBC #### [facility] [address] Glucose [Mass/Vol] 79 mg/dL Normal 70-100 [facility] Comment on above: Result Comment: [place] Glucose Reference Range is dependent on time and content of last meal. Glucose of more than 200 mg/dL in a nonstressed, ambulatory subject supports the diagnosis of Diabetes Mellitus. ADA recommended reference range Performed By: #### L IPID, TSH3, CMP, CBC #### [address] Potassium [Moles/Vol] 3.9 mmol/L Normal 3.5-5.1 [facility] Comment on above: Performed By: #### L IPID, TSH3, CMP, CBC #### [address] Protein [Mass/Vol] 6.0 g/dL Low 6.4-8.9 [facility] Comment on above: Performed By: #### L IPID, TSH3, CMP, CBC #### [address] Sodium [Moles/Vol] 142 mmol/L Normal 136-145 [facility] Comment on above: Performed By: #### L IPID, TSH3, CMP, CBC #### [place] [address] [place] Urea nitrogen [Mass/Vol] 22 mg/dL Normal 7-25 [facility] Comment on above: Performed By: #### L IPID, TSH3, CMP, CBC #### [address] Lipid Panelon 09-03-2023 Cholesterol [Mass/Vol] 243 mg/dL High 140-200 [facility] Comment on above: Result Comment: Chol less than 200 mg/dl low risk Chol 201-239 mg/dl borderline risk Chol 240 mg/dl and greater high risk Performed By: #### L IPID, TSH3, CMP, CBC #### [facility] [address] Cholesterol in HDL [Mass/Vol] 98 mg/dL High 23-92 [facility] Comment on above: Result Comment: HDL CHOL ATP-III CLASSIFICATION Cardiovascular Risk HDL > or equal to 60 mg/dL LOW HDL < 40 mg/dL HIGH Performed By: #### L IPID, TSH3, CMP, CBC #### [facility] [address] Cholesterol.total/Ch olesterol in HDL [Mass ratio] 2.5 {ratio} Normal <5.0 [facility] Comment on above: Performed By: #### L IPID, TSH3, CMP, CBC #### [address] LDL Cholesterol,Calculat ed 121 mg/dL High 0-100 [facility] Comment on above: Result Comment: LDL ATP III CLASSIFICATION LDL less than 100 mg/dL Optimal LDL 100-129 mg/dL Near or above optimal LDL 130-159 mg/dL Borderline high LDL 160-189 mg/dL High LDL greater than 189 mg/dL Very high Performed By: #### L IPID, TSH3, CMP, CBC #### [address] Triglyceride w/Reflex 122 mg/dL Normal 0-149 [facility] Comment on above: Result Comment: TRIG ATP III CLASSIFICATION TRIG less than 150 mg/dL Normal TRIG 150-199 mg/dL Borderline high TRIG 200-500 mg/dL High TRIG greater than 500 mg/dL Very high Standard traceable to the Center for Disease Conrtrol and Prevention (CDC) test method. Performed By: #### L IPID, TSH3, CMP, CBC #### [address] VLDL CHOLESTEROL 24 mg/dL Normal [facility] Comment on above: Performed By: #### L IPID, TSH3, CMP, CBC #### [place] [address] [place] Thyroid Stimulating Hormoneo n 09-03-2023 TSH Qn 4.01 m[IU]/L Normal 0.45-5.33 [facility] Comment on above: Result Comment: PERF ORMED BY: [facility] [address] [place] [address] PATHOLOGIST AIRVEYOR OPERATOR JODY SOLANO M.D. Performed By: #### L IPID, TSH3, CMP, CBC #### [facility] [address] [place] [id number] [facility] Complete Blood Count Auto Di ffon 07-08-2023 Basophils (Bld) [#/Vol] 0.224256546 10*3/uL Normal 0.0-0.2 10*3/uL [facility] Other Basophils/100 WBC (Bld) 0.900 % . % [facility] Other Eosinophils (Bld) [#/Vol] 0.227460888 10*3/uL Normal 0.0-0.45 10*3/uL [facility] Other Eosinophils/100 WBC (Bld) 1.100 % . % [facility] Other Erythrocyte distribution width (RBC) [Ratio] 14.000 % Normal 11.9-15.3 % [facility] Other Hematocrit (Bld) [Volume fraction] 37.700 % Normal 34.0-46.4 % [facility] Other Hemoglobin (Bld) [Mass/Vol] 12.534106 g/dL Normal 11.8-15.4 g/dL [facility] Other Lymphocytes (Bld) [#/Vol] 2.193420855 10*3/uL Normal 1.00-4.8 10*3/uL [facility] Other Lymphocytes/100 WBC (Bld) 35.100 % . % [facility] Other MCH (RBC) [Entitic mass] 33.3000 pg Normal 24.7-34.3 pg [facility] Other MCV (RBC) [Entitic vol] 99.7000 fL Normal 80-100 fL [facility] Other Monocytes (Bld) [#/Vol] 0.732218883 10*3/uL Normal 0.0-0.8 10*3/uL [facility] Other Monocytes/100 WBC (Bld) 10.000 % . % [facility] Other Neutrophils (Bld) [#/Vol] 3.101141226 10*3/uL Normal 1.8-7.7 10*3/uL [facility] Other Neutrophils/100 WBC (Bld) 52.900 % . % [facility] Other Platelet mean volume (Bld) [Entitic vol] 9.9000 fL Normal 6.3-10.7 fL [facility] Other Platelets (Bld) [#/Vol] 224 10*3/uL Normal 150-450 10*3/uL [facility] Other RBC (Bld) [#/Vol] 3.78 10*6/uL Normal 3.60-5.00 [facility] Other WBC (Bld) [#/Vol] 7.515145197 10*3/uL Normal 3.8 -11.6 10*3/uL [facility] Other Complete Blood Count Auto Diff 7.1 10*3/uL Normal 3.8-11.6 10*3/uL [facility] Other Complete Blood Count Auto Diff 33.4 g/dL Normal 32.0-35.0 g/dL [facility] Other Complete Blood Count Auto Diff 0.1 /100{WBC} Normal 0-0.5 /100{WBC} [facility] Other Comprehensive Metabolic Pane nory 07-08-2023 Albumin [Mass/Vol] 3.497924 g/dL Normal 3.5-5.7 g/dL N [facility] [employer] Other Albumin/Globulin [Mass ratio] 1.7 {ratio} [place] [facility] Other ALP [Catalytic activity/Vol] 140 U/L High 34-104 U/L [place] [facility] Other ALT [Catalytic activity/Vol] 71 U/L High 7-52 U/L [facility] [facility] Other AST [Catalytic activity/Vol] 20 U/L Normal 13-39 U/L [facility] Other Bilirubin [Mass/Vol] 0.4322974 mg/dL Normal 0.3-1.0 mg /dL [facility] [facility] Other Calcium [Mass/Vol] 9.4337871 mg/dL Normal 8.6-10 .3 mg/dL [facility] Other Chloride [Moles/Vol] 107 mmol/L Normal 98-107 mmol/L N [facility] Other CO2 [Moles/Vol] 30.39222565 mmol/L Normal 21.0-3 1.0 mmol/L [facility] Other Creatinine [Mass/Vol] 0.57608530 mg/dL Normal 0.60-1.20 mg/dL [facility] Other GFR/1.73 sq M.predicted MDRD (S/P/Bld) [Vol rate/Area] mL/min/{1.73_m2} [facility] Other Glucose [Mass/Vol] 89 mg/dL Normal 70-100 mg/dL [facility] Other Potassium [Moles/Vol] 3.93988874 mmol/L Normal 3.5-5.1 mmol/L [facility] Other Protein [Mass/Vol] 6.000485 g/dL Low 6.4-8.9 g/dL N [facility] Other Sodium [Moles/Vol] 143 mmol/L Normal 136-145 mmol/L [facility] Other Urea nitrogen [Mass/Vol] 21 mg/dL Normal 7-25 mg/dL [facility] Other Comprehensive Metabolic Panel 2.2 g/dL [facility] Other Free T4 (Free Thyroxine)on 0 07-08-2023 Free T4 [Mass/Vol] 1.07160568 ng/dL High 0.61- 1.12 ng/dL [facility] Other Thyroid Antibodies TPO+Tg Ab on 07-08-2023 Thyroid Antibodies TPO+Tg Ab 11 0-34 [facility] Other Thyroid Antibodies TPO+Tg Ab <1.0 0.0-0.9 [facility] Other Thyroid Stimulating Hormoneo n 07-08-2023 TSH Qn 2.48518370422 m[IU]/L Normal 0.45-5 .33 u[iU]/mL [facility] Other Echocardiogramon 02-26-[address], [place] [address] TRANSTHORACIC ECHOCARDIOGRAM REPORT Patient Name: LAVONNE Bahena Physician: [id number] [facility] Study Date: 02/26/2023 Referring SHY WOLF Physician: MRN/PID: [id number] PCP: Suhas Garrett MD Accession/Order#: [id number] Department [facility] Location: Date of : 1935 Fellow: Gender: F Nurse: Admit Date: Biology Intern: Sheridan Lemus RDCS T Height: 157.48 cm CC Report to: Weight: 67.13 kg Study Type: Echocardiogram BSA: 1.68 m2 Blood Pressure: 122 /76 mmHg Diagnosis/ICD: I35.0-Nonrheumatic aortic (valve) stenosis; R01.1-Cardiac murmur, unspecified Indication: HTN, Hyperlipidemia, Overweight, Hypothyroid, Polymyalgia Rheumatica Procedure/CPT: Echo Complete w Full Doppler-[id number] Study Detail: The following Echo studies were [...] mmHg PIEDV: 2.50 m/s PADP: 28.0 mmHg [id number] Shy Wolf MD, [facility] Electronically signed on 03/01/2023 at 2:16:46 PM Final Normal [facility] Office Visit (Cardiology)on 12-24-2022 Follow-up visit Diagnoses/Problems Assessed Aortic stenosis (424.1) (I35.0) Murmur, cardiac (785.2) (R01.1) Essential hypertension (401.9) (I10) Hyperlipidemia (272.4) (E78.5) Overweight with body mass index (BMI) of 27 to 27.9 in adult (278.02,V85.23) (E66.3,Z68.27) Never smoker Hypothyroidism (244.9) (E03.9) PMR (polymyalgia rheumatica) (725) (M35.3) Orders Aortic stenosis, Murmur, cardiac Echocardiogram; Status:Hold For - Scheduling,Retrospect bola Authorization; Requested for:[id number]; Essential hypertension, Hyperlipidemia Changed: From Aspirin EC 81 MG TBEC TAKE 1 TABLET To Aspirin 81 MG Oral Tablet Delayed Release TAKE 1 TABLET DAILY Overweight with body mass index (BMI) of 27 to 27.9 in adult Healthy Weight Tips; Status:Complete - Retrospective Authorization; Done: [id number] Some eating tips that can help you lose weight.; Status:Complete - Retrospective Authorization; Done: [id number] SocHx: Never smoker Tobacco Use Screening; Status:Complete; Done: [id number] Patient Instructions Please bring all medicines, vitamins, [...] is being tapered gradually Shy Wolf MD, [facility] Past Medical History Problems History of [...] Multi Vitamin Oral TabletTAKE 1 TABLET DAILY. [place]-3 Fish Oil 1000 MG Oral CapsuleTAKE 1 [...] negative for complaint. Vitals Vital Signs Recorded: [id number] 11:32AM Heart Rate68, R Radial Eaerjyag149, RUE, Sitting Tqmphuhuf64, RUE, Sitting Height5 ft 2 in Ljuqfh628 lb BMI Kxutblbaxn98.07 kg/m2 BSA Calculated1.68 Tobacco Useb) No PHQ-2 [...] distress a (more content not included)... Normal [place] Tobacco Screening.on 023 Adult depression screening assessment No [facility] 250 DO Work Phone: Fall risk assessment a) No falls within the last year [facility] 250 DO Work Phone: Tobacco use status CPHS b) No [facility] 250 DO Work Phone: Complete Blood Count Auto Di ffon 02-22-2022 Basophils (Bld) [#/Vol] 0.046973207 10*3/uL Normal 0.0-0.2 10*3/uL [facility] Other Basophils/100 WBC (Bld) 0.700 % . % [facility] Other Eosinophils (Bld) [#/Vol] 0.958784445 10*3/uL Normal 0.0-0.45 10*3/uL [facility] Other Eosinophils/100 WBC (Bld) 0.700 % . % [facility] Other Erythrocyte distribution width (RBC) [Ratio] 13.500 % Normal 11.9-15.3 % [facility] Other Hematocrit (Bld) [Volume fraction] 38.400 % Normal 34.0-46.4 % [facility] Other Hemoglobin (Bld) [Mass/Vol] 12.305197 g/dL Normal 11.8-15.4 g/dL [facility] Other Lymphocytes (Bld) [#/Vol] 0.514541457 10*3/uL Low 1.00-4.8 10*3/uL [facility] Other Lymphocytes/100 WBC (Bld) 12.600 % . % [facility] Other MCH (RBC) [Entitic mass] 33.7000 pg Normal 24.7-34.3 pg [facility] Other MCV (RBC) [Entitic vol] 100.4000 fL High 80-100 fL [facility] Other Monocytes (Bld) [#/Vol] 0.092743346 10*3/uL Normal 0.0-0.8 10*3/uL [facility] Other Monocytes/100 WBC (Bld) 6.800 % . % [facility] Other Neutrophils (Bld) [#/Vol] 5.661265916 10*3/uL Normal 1.8-7.7 10*3/uL [facility] Other Neutrophils/100 WBC (Bld) 79.200 % . % [facility] Other Platelet mean volume (Bld) [Entitic vol] 9.4000 fL Normal 6.3-10.7 fL [facility] Other Platelets (Bld) [#/Vol] 223 10*3/uL Normal 150-450 10*3/uL [facility] Other RBC (Bld) [#/Vol] 3.2365005976 10*6/uL Normal 3. 60-5.00 10*6/uL [facility] Other WBC (Bld) [#/Vol] 6.788684981 10*3/uL Normal 3.8 -11.6 10*3/uL [facility] Other Complete Blood Count Auto Diff 6.6 10*3/uL Normal 4.5-11.0 10*3/uL [facility] Other Complete Blood Count Auto Diff 33.6 g/dL Normal 32.0-35.0 g/dL [facility] Other Complete Blood Count Auto Diff 0.1 % Normal 0-0.5 % [facility] Other Erythrocyte Sedimentation Ra amy 02-22-2022 ESR (Bld) [Velocity] 28 mm/h Normal 0-29 [facility] Other [facility]ASC LAB Carotid Artery Dupl ex Ultrasoundon 02-21-2022 US.doppler Carotid arteries [place] [id number] [place] Work Phone: COVID Quick Testingon 2021 Result Positive [place] [facility] Other Falls Screening (Age 18+)on 12-26-2021 Fall risk assessment a) No falls within the last year [facility] 250 DO Work Phone: Office Visit [...] Multi Vitamin Oral TabletTAKE 1 TABLET DAILY. [place] 3 500 [place] 1 CAPSULE Daily predniSONE 5 MG Oral Tsixhs7CD 7.5MG BY MOUTH ONE DAILY ALTERNATING EVERY OTHER DAY Allergies Medication amoxicillin Hives;; Recorded By: Kayla Orr; 10/17/2021 10:50:34 AM Dilantin CAPS Rash; Recorded By: Kayla Orr; 10/17/2021 10:50:34 AM Fosamax eye pain; Recorded By: Kayla Orr; 10/17/2021 10:50:34 AM Depakote ER TB24 Recorded By: Kayla Orr; 10/17/2021 10:50:34 AM Vitals Vital Signs Recorded: [id number] 11:04AMRecorded: 65Aus9486 11:00AM Heart Rate56, R Tltpro12, R Radial Mocqxpdd164, LUE, Jijvtym978, RUE Asxpohasa35, LUE, Vuqbdyb91, RUE Height5 ft 2 in5 ft 2 in Mvkukc266 lb 143 lb BMI Lrvtnhvqok12.16 kg/m226.16 kg/m2 BSA Calculated1.661.66 Falls Screening (Age 18+)a) No falls within the last year Signatures Electronically signed by : Shy Wolf MD; Dec 26 2021 4:02PM EST (Author) Normal [place] Tobacco Screening.on 022 Adult depression screening assessment No [facility] Work Phone: Fall risk assessment a) No falls within the last year [facility] Work Phone: Tobacco use status CPHS b) No [facility] Work Phone: Vital Signs Date Time Vital Sign Value 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 Facility 01-14-2025 11:07-0400 Body height 157.5 cm Shy Wolf MD Work Phone: [facility] 01-14-2025 11:07-0400 Body mass index (BMI) [Ratio] 27.44 kg/m2 Shy Wolf MD Work Phone: [facility] 01-14-2025 11:07-0400 Body weight 68.04 kg Shy Wolf MD Work Phone: [facility] 01-14-2025 11:07-0400 Diastolic blood pressure 78 mm[Hg] Shy Wolf MD Work Phone: [facility] 01-14-2025 11:07-0400 Heart rate 60 /min Shy Wolf MD Work Phone: [facility] 01-14-2025 11:07-0400 Systolic blood pressure 168 mm[Hg] Shy Wolf MD Work Phone: [facility] 12-21-2024 12:30-0400 Body height 157.[address] 12-21-2024 12:30-0400 Body mass index (BMI) [Ratio] 26.52 kg/m2 [address] 12-21-2024 12:30-0400 Body weight 65.[address] 12-21-2024 12:30-0400 Diastolic blood pressure 68 mm[Hg] [address] 12-21-2024 12:30-0400 Systolic blood pressure 146 mm[Hg] [address] 12-08-2024 13:56-0400 Diastolic blood pressure 70 mm[Hg] Reuben Burns SPECIALTIES OPERATOR-HOOKER INSPECTOR Work Phone: [facility] 12-08-2024 13:56-0400 Systolic blood pressure 142 mm[Hg] Reuben Burns SPECIALTIES OPERATOR-HOOKER INSPECTOR Work Phone: [facility] 12-07-2024 14:59-0400 Body height 157.5 cm Reuben Burns SPECIALTIES OPERATOR-HOOKER INSPECTOR Work Phone: [facility] 12-07-2024 14:59-0400 Body mass index (BMI) [Ratio] 26.45 kg/m2 Reuben Burns SPECIALTIES OPERATOR-HOOKER INSPECTOR Work Phone: [facility] 12-07-2024 14:59-0400 Body weight 65.59 kg Reubenmayo Burns SPECIALTIES OPERATOR-HOOKER INSPECTOR Work Phone: [facility] 12-07-2024 14:59-0400 Heart rate 62 /min Reubenmayo Burns SPECIALTIES OPERATOR-HOOKER INSPECTOR Work Phone: [facility] 04-16-2024 13:16-0500 Body height 157.5 cm Shy Wolf MD Work Phone: [facility] 04-16-2024 13:16-0500 Body mass index (BMI) [Ratio] 26.67 kg/m2 Shy Wolf MD Work Phone: [facility] 04-16-2024 13:16-0500 Body weight 66.13 kg Shy Wolf MD Work Phone: [facility] 04-16-2024 13:16-0500 Diastolic blood pressure 62 mm[Hg] Shy Wolf MD Work Phone: [facility] 04-16-2024 13:16-0500 Heart rate 62 /min Shy Wolf MD Work Phone: [facility] 04-16-2024 13:16-0500 Systolic blood pressure 120 mm[Hg] Shy Wolf MD Work Phone: [facility] 02-11-2024 12:28-0400 Body height 157.[address] 02-11-2024 12:28-0400 Body mass index (BMI) [Ratio] 27.98 kg/m2 [address] 02-11-2024 12:28-0400 Body weight 69.[address] 02-11-2024 12:28-0400 Diastolic blood pressure 76 mm[Hg] [address] 02-11-2024 12:28-0400 Systolic blood pressure 116 mm[Hg] [address] 07-04-2023 11:15-0500 Body height 157.48 cm Suhas Garrett Other [employer] [facility] [employer] Other 07-04-2023 11:15-0500 Body mass index (BMI) [Ratio] 28.53 kg/m2 Suhas Garrett Other [employer] [facility] [employer] Other 07-04-2023 11:15-0500 Body weight 70.76 kg Suhas Garrett Other [employer] [facility] [employer] Other 07-04-2023 11:15-0500 Diastolic blood pressure 84 mm[Hg] Suhas Garrett Other [employer] [facility] [employer] Other 07-04-2023 11:15-0500 Respiratory rate 20 /min Suhas Garrett Other [employer] [facility] [employer] Other 07-04-2023 11:15-0500 SaO2% (BldA) [Mass fraction] 99 % Suhas Garrett Other [facility] Other 07-04-2023 11:15-0500 Systolic blood pressure 150 mm[Hg] Suhas Garrett Other [facility] Other 06-19-2023 11:09-0500 Body height 157.5 cm Shy Wolf MD Work Phone: [facility] 06-19-2023 11:09-0500 Body mass index (BMI) [Ratio] 27.98 kg/m2 Shy Wolf MD Work Phone: [facility] 06-19-2023 11:09-0500 Body weight 69.4 kg Shy Wolf MD Work Phone: [facility] 06-19-2023 11:09-0500 Diastolic blood pressure 76 mm[Hg] Shy Wolf MD Work Phone: [facility] 06-19-2023 11:09-0500 Heart rate 60 /min Shy Wolf MD Work Phone: [facility] 06-19-2023 11:09-0500 Systolic blood pressure 120 mm[Hg] Shy Wolf MD Work Phone: [facility] 05-30-2023 11:00-0500 Body height 157.48 cm Suhas Garrett Other [facility] Other 05-30-2023 11:00-0500 Body mass index (BMI) [Ratio] 27.8 kg/m2 Suhas Garrett Other [facility] Other 05-30-2023 11:00-0500 Body weight 68.95 kg Suhas Garrett Other [facility] Other 05-30-2023 11:00-0500 Diastolic blood pressure 80 mm[Hg] Suhas Ugo Other [facility] Other 05-30-2023 11:00-0500 Respiratory rate 18 /min Suhas Ugo Other [facility] Other 05-30-2023 11:00-0500 SaO2% (BldA) [Mass fraction] 96 % Suhas Garrett Other [facility] Other 05-30-2023 11:00-0500 Systolic blood pressure 122 mm[Hg] Suhas Garrett Other [facility] Other 02-28-2023 10:30-0400 Body height 157.48 cm Suhas Ugo Other [facility] Other 02-28-2023 10:30-0400 Body mass index (BMI) [Ratio] 27.98 kg/m2 Suhas Ugo Other [facility] Other 02-28-2023 10:30-0400 Body weight 69.4 kg Suhas Garrett Other [facility] Other 02-28-2023 10:30-0400 Diastolic blood pressure 76 mm[Hg] Suhas Garrett Other [facility] Other 02-28-2023 10:30-0400 Respiratory rate 16 /min Suhas Garrett Other [facility] Other 02-28-2023 10:30-0400 SaO2% (BldA) [Mass fraction] 91 % Suhas Garrett Other [facility] Other 02-28-2023 10:30-0400 Systolic blood pressure 134 mm[Hg] Suhas Garrett Other [facility] [employer] Other 12-24-2022 11:32-0400 Body height 157.48 cm Suhas Dalton Ugo Work Phone: [facility] DO Work Phone: 12-24-2022 11:32-0400 Body mass index (BMI) [Ratio] 27.07 kg/m2 Suhas Dalton Gaeladan Work Phone: [facility] DO Work Phone: 12-24-2022 11:32-0400 Body surface area Derived from formula 1.68 m2 Suhas Garrett Work Phone: [facility] [address] DO Work Phone: 12-24-2022 11:32-0400 Body weight 67.13 kg Suhas Dalton Gaeladan Work Phone: [facility] [address] DO Work Phone: 12-24-2022 11:32-0400 Diastolic blood pressure 76 mm[Hg] Suhas Dalton Garrett Work Phone: [facility] [address] DO Work Phone: 12-24-2022 11:32-0400 Heart rate 68 /min Suhas Dalton Garrett Work Phone: [facility] DO Work Phone: 12-24-2022 11:32-0400 Systolic blood pressure 118 mm[Hg] Suhas Mayos Work Phone: [facility] [address] DO Work Phone: 12-06-2022 10:30-0400 Body height 157.48 cm Suhas Garrett Other [facility] Other 12-06-2022 10:30-0400 Body mass index (BMI) [Ratio] 27.98 kg/m2 Suhas Garrett Other [facility] Other 12-06-2022 10:30-0400 Body weight 69.4 kg Suhas Garrett Other [facility] Other 12-06-2022 10:30-0400 Diastolic blood pressure 70 mm[Hg] Suhas Garrett Other [facility] Other 12-06-2022 10:30-0400 Respiratory rate 16 /min Suhas Garrett Other [facility] Other 12-06-2022 10:30-0400 SaO2% (BldA) [Mass fraction] 98 % Suhas Garrett Other [facility] Other 12-06-2022 10:30-0400 Systolic blood pressure 146 mm[Hg] Suhas Garrett Other [facility] Other 09-20-2022 11:45-0400 Body height 157.48 cm Suhas Garrett Other [facility] Other 09-20-2022 11:45-0400 Body mass index (BMI) [Ratio] 26.34 kg/m2 Suhas Garrett Other [facility] Other 09-20-2022 11:45-0400 Body weight 65.32 kg Suhas Garrett Other [facility] Other 09-20-2022 11:45-0400 Diastolic blood pressure 70 mm[Hg] Suhas Mayoadan Other [facility] Other 09-20-2022 11:45-0400 Respiratory rate 16 /min Suhas Mayoadan Other [facility] Other 09-20-2022 11:45-0400 SaO2% (BldA) [Mass fraction] 98 % Suhasraquel Mayoadan Other [facility] Other 09-20-2022 11:45-0400 Systolic blood pressure 130 mm[Hg] Suhas Ugo Other [facility] Other 07-22-2022 11:30-0500 Body height 157.48 cm Suhas Garertt Other [facility] Other 07-22-2022 11:30-0500 Body mass index (BMI) [Ratio] 26.85 kg/m2 Suhas Garrett Other [facility] Other 07-22-2022 11:30-0500 Body weight 66.59 kg Suhas Garrett Other [facility] Other 07-22-2022 11:30-0500 Diastolic blood pressure 70 mm[Hg] Suhas Ugo Other [facility] Other 07-22-2022 11:30-0500 Respiratory rate 16 /min Suhas Ugo Other [facility] Other 07-22-2022 11:30-0500 SaO2% (BldA) [Mass fraction] 98 % Suhas Garrett Other [facility] Other 07-22-2022 11:30-0500 Systolic blood pressure 122 mm[Hg] Suhas Ugo Other [facility] Other 04-17-2022 11:45-0500 Body height 157.48 cm Suhas Ugo Other [facility] Other 04-17-2022 11:45-0500 Body mass index (BMI) [Ratio] 26.88 kg/m2 Suhas Garrett Other [facility] Other 04-17-2022 11:45-0500 Body weight 66.68 kg Suhas Garrett Other [facility] Other 04-17-2022 11:45-0500 Diastolic blood pressure 72 mm[Hg] Suhas Garrett Other [facility] Other 04-17-2022 11:45-0500 Respiratory rate 16 /min Suhas Mayoadan Other [facility] Other 04-17-2022 11:45-0500 SaO2% (BldA) [Mass fraction] 99 % Suhas Garrett Other [facility] Other 04-17-2022 11:45-0500 Systolic blood pressure 138 mm[Hg] Suhas Garrett Other [facility] Other 02-22-2022 10:15-0400 Body height 157.48 cm Suhas Garrett Other [facility] Other 02-22-2022 10:15-0400 Body mass index (BMI) [Ratio] 27.07 kg/m2 Suhas Garrett Other [facility] Other 02-22-2022 10:15-0400 Body weight 67.13 kg Suhas Garrett Other [facility] Other 02-22-2022 10:15-0400 Diastolic blood pressure 70 mm[Hg] Suhas Garrett Other [facility] Other 02-22-2022 10:15-0400 Respiratory rate 16 /min Suhas Garrett Other [facility] Other 02-22-2022 10:15-0400 SaO2% (BldA) [Mass fraction] 97 % Suhas Garrett Other [facility] Other 02-22-2022 10:15-0400 Systolic blood pressure 122 mm[Hg] Suhas Garrett Other [facility] [employer] Other 02-21-2022 10:45-0400 70 1 Suhas Garrett Work Phone: [address] Work Phone: Comment on above: [id number] 02-14-2022 15:45-0400 Body height 157.48 cm Suhas Garrett Other [facility] Other 02-14-2022 15:45-0400 Body mass index (BMI) [Ratio] 26.7 kg/m2 Suhas Garrett Other [facility] Other 02-14-2022 15:45-0400 Body weight 66.23 kg Suhas Garrett Other [facility] Other 02-14-2022 15:45-0400 Diastolic blood pressure 72 mm[Hg] Suhas Garrett Other [facility] Other 02-14-2022 15:45-0400 Respiratory rate 16 /min Suhas Garrett Other [facility] [employer] Other 02-14-2022 15:45-0400 SaO2% (BldA) [Mass fraction] 96 % Suhas Garrett Other [facility] [employer] Other 02-14-2022 15:45-0400 Systolic blood pressure 132 mm[Hg] Suhas aGrrett Other [facility] Other 12-26-2021 11:04-0400 Body height 157.48 cm Suhas Garrett Work Phone: [facility] DO Work Phone: 12-26-2021 11:04-0400 Body mass index (BMI) [Ratio] 26.16 kg/m2 Suhas Garrett Work Phone: [facility] DO Work Phone: 12-26-2021 11:04-0400 Body surface area Derived from formula 1.66 m2 Suhas Garrett Work Phone: [facility] DO Work Phone: 12-26-2021 11:04-0400 Body weight 64.86 kg Suhas Garrett Work Phone: [facility] [address] DO Work Phone: 12-26-2021 11:04-0400 Diastolic blood pressure 68 mm[Hg] Suhas Hoffman Ugo Work Phone: [facility] DO Work Phone: 12-26-2021 11:04-0400 Heart rate 56 /min Suhas Dalton Garrett Work Phone: [facility] [address] DO Work Phone: 12-26-2021 11:04-0400 Systolic blood pressure 126 mm[Hg] Suhas Garrett Work Phone: [facility] [facility] DO Work Phone: 12-26-2021 11:00-0400 Diastolic blood pressure 70 mm[Hg] Suhas Garrett Work Phone: [facility] [address] DO Work Phone: 12-26-2021 11:00-0400 Systolic blood pressure 130 mm[Hg] Suhas Garrett Work Phone: [facility] [facility] DO Work Phone: 12-13-2021 11:39-0400 Diastolic blood pressure 80 mm[Hg] Suhas Garrett Work Phone: [facility] Work Phone: 12-13-2021 11:39-0400 Systolic blood pressure 170 mm[Hg] Shuas Garrett Work Phone: [facility] Work Phone: 12-13-2021 11:22-0400 Diastolic blood pressure 80 mm[Hg] Suhas Garrett Work Phone: [facility] Work Phone: 12-13-2021 11:22-0400 Systolic blood pressure 158 mm[Hg] Suhas Garrett Work Phone: [facility] Work Phone: 12-13-2021 11:17-0400 Body height 157.48 cm Suhas Garrett Work Phone: [facility] Work Phone: 12-13-2021 11:17-0400 Body mass index (BMI) [Ratio] 26.52 kg/m2 Suhas Garrett Work Phone: [facility] Work Phone: 12-13-2021 11:17-0400 Body surface area Derived from formula 1.67 m2 Suhas Garrett Work Phone: [facility] Work Phone: 12-13-2021 11:17-0400 Body weight 65.77 kg Suhas Garrett Work Phone: [facility] Work Phone: 12-13-2021 11:17-0400 Diastolic blood pressure 80 mm[Hg] Suhas Garrett Work Phone: [facility] Work Phone: 12-13-2021 11:17-0400 Heart rate 60 /min Suhas Garrett Work Phone: [facility] Work Phone: 12-13-2021 11:17-0400 Systolic blood pressure 160 mm[Hg] Suhas Garrett Work Phone: [facility] Work Phone: 10-01-2021 13:30-0400 Body height 157.48 cm Suhas Garrett Other [facility] Other 10-01-2021 13:30-0400 Body mass index (BMI) [Ratio] 26.34 kg/m2 Suhas Garrett Other [facility] Other 10-01-2021 13:30-0400 Body weight 65.32 kg Suhas Garrett Other [facility] Other 10-01-2021 13:30-0400 Diastolic blood pressure 72 mm[Hg] Suhas Garrett Other [facility] Other 10-01-2021 13:30-0400 Respiratory rate 18 /min Suhas Garrett Other [facility] Other 10-01-2021 13:30-0400 SaO2% (BldA) [Mass fraction] 99 % Suhasraquel Mayoadan Other [facility] Other 10-01-2021 13:30-0400 Systolic blood pressure 130 mm[Hg] Suhas Garrett Other [facility] Other 08-02-2021 13:30-0500 Body height 157.48 cm Suhas Garrett Other [facility] Other 08-02-2021 13:30-0500 Body mass index (BMI) [Ratio] 26.52 kg/m2 Suhas Garrett Other [facility] Other 08-02-2021 13:30-0500 Body weight 65.77 kg Suhas Garrett Other [facility] Other 08-02-2021 13:30-0500 Diastolic blood pressure 70 mm[Hg] Suhas Garrett Other [facility] Other 08-02-2021 13:30-0500 Respiratory rate 16 /min Suhas Garrett Other [facility] Other 08-02-2021 13:30-0500 SaO2% (BldA) [Mass fraction] 99 % Suhas Garrett Other [facility] Other 08-02-2021 13:30-0500 Systolic blood pressure 118 mm[Hg] Suhas Garrett Other [facility] Other 04-26-2021 13:30-0500 Body height 157.48 cm Suhas Garrett Other [facility] Other 04-26-2021 13:30-0500 Body mass index (BMI) [Ratio] 25.97 kg/m2 Suhas Garrett Other [facility] Other 04-26-2021 13:30-0500 Body weight 64.41 kg Suhas Garrett Other [facility] Other 04-26-2021 13:30-0500 Diastolic blood pressure 74 mm[Hg] Suhas Garrett Other [facility] Other 04-26-2021 13:30-0500 Respiratory rate 17 /min Suhas Garrett Other [facility] Other 04-26-2021 13:30-0500 SaO2% (BldA) [Mass fraction] 98 % Suhas Garrett Other [facility] Other 04-26-2021 13:30-0500 Systolic blood pressure 120 mm[Hg] Suhas Garrett Other [facility] Other Encounters Encounter Date Encounter Type Care Provider Facility Start: 01-14-2025 End: 01-14-2025 Office outpatient visit 25 minutes Shy Wolf MD Work Phone: [facility] Comment on above: Nonrheumatic aortic valve stenosis (Primary Dx); 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; Hyperlipidemia, unspecified hyperlipidemia type; PMR (polymyalgia rheumatica) (Multi); Hypothyroidism, unspecified type; BMI 27.0-27.9,adult; Never smoked any substance; Overweight Start: 01-14-2025 End: 01-14[facility] Start: 12-21-2024 End: 12-21-2024 Subsequent hospital visit by physician Susie Baker Echo/Vasc Room 2 [facility] Comment on above: Aortic valve stenosi s, etiology of cardiac valve disease unspecified Start: 12-21-2024 End: 12-21-2024 ambulatory [facility] Start: 12-07-2024 End: 12-07-2024 Office outpatient visit 15 minutes Reubenmayo Burns SPECIALTIES OPERATOR-HOOKER INSPECTOR Work Phone: [facility] Comment on above: 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 (Primary Dx); BMI 26.0-26.9,adult Start: 12-07-2024 End: 12-07-2024 ambulatory REUBEN [facility] Start: 10-25-2024 End: 10-25-2024 ambulatory Gloria Weston MD Facility: [facility] Start: 09-13-2024 End: 09-13-2024 ambulatory Gloria Weston MD Facility: [facility] Start: 07-28-2024 End: 07-28-2024 ambulatory Suhas Garrett Facility:[facility] Start: 05-25-2024 End: 05-25-2024 ambulatory Suhas Garrett Facility:[facility] Start: 04-16-2024 End: 04-16-2024 Office outpatient visit 25 minutes Shy Wolf MD Work Phone: [facility] Comment on above: Aortic valve stenosi s, etiology of cardiac valve disease unspecified (Primary Dx); Essential hypertension; Hyperlipidemia, unspecified hyperlipidemia type; Never smoked any substance; BMI 26.0-26.9,adult; Hypothyroidism, unspecified type Start: 04-16-2024 End: 04-16-2024 ambulatory [facility] Start: 02-23-2024 End: 02-23-2024 ambulatory Gloria Weston MD Facility: [facility] Start: 02-11-2024 End: 02-11-2024 Subsequent hospital visit by physician Susie Baker Echo/Vasc Room 2 [facility] Comment on above: Nonrheumatic aortic valve stenosis; Aortic valve stenosis, etiology of cardiac valve disease unspecified Start: 02-11-2024 End: 02-11-2024 ambulatory BEGUM M [facility] Start: 11-24-2023 End: 11-24-2023 ambulatory Gloria Weston MD Facility:[facility] Start: 11-17-2023 End: 11-17-2023 ambulatory Gloria Weston MD Facility:[facility] Start: 10-14-2023 End: 10-14-2023 ambulatory Suhas Garrett Facility:[facility] Start: 09-03-2023 End: 09-03-2023 ambulatory Suhas Garrett Facility:[facility] Start: 07-18-2023 End: 07-18-2023 ambulatory Suhas Garrett Other [facility] Other Start: 07-18-2023 Telephone encounter Suhas Garrett [facility] [place] Start: 07-15-2023 End: 07-15-2023 ambulatory Suhas Garrett Other [facility] Other Start: 07-15-2023 Telephone encounter Suhas Garrett [facility] [place] Start: 07-10-2023 End: 07-10-2023 ambulatory Suhas Garrett Other [facility] Other Start: 07-10-2023 Telephone encounter Suhas Garrett [facility] [place] Start: 07-07-2023 End: 07-07-2023 ambulatory Suhas Garrett Other [facility] Other Start: 07-07-2023 Telephone encounter Suhas Mayos [facility] [place] Start: 07-04-2023 End: 07-04-2023 ambulatory Suhas Garrett Other [facility] Other Start: 07-04-2023 Office outpatient vi sit 15 minutes Suhas Garrett [facility] [place] Start: 06-19-2023 End: 06-19-2023 ambulatory Suhas Garrett Other [facility] Other Start: 06-19-2023 Telephone encounter Suhas Garrett [facility] [place] Start: 06-19-2023 End: 06-19-2023 Office outpatient visit 25 minutes Shy Wolf MD Work Phone: [facility] Comment on above: Aortic valve stenosi s, etiology of cardiac valve disease unspecified; Essential hypertension; Hyperlipidemia, unspecified hyperlipidemia type; Never smoked any substance Start: 05-30-2023 End: 05-30-2023 ambulatory Suhas Garrett Other [facility] Other Start: 05-30-2023 Office outpatient vi sit 25 minutes Suhas Garrett [facility] [place] Start: 05-28-2023 End: 05-28-2023 ambulatory Suhas Garrett Other [facility] Other Start: 05-28-2023 Telephone encounter Suhas Garrett [facility] [place] Start: 04-23-2023 End: 04-23-2023 ambulatory Suhas Garrett Other [facility] Other Start: 04-23-2023 Telephone encounter Suhas Garrett [facility] [place] Start: 04-18-2023 End: 04-18-2023 ambulatory Suhas Garrett Other [facility] Other Start: 04-18-2023 Telephone encounter Suhas Garrett [facility] [place] Start: 03-02-2023 Chart Update Suhas Garrett Work Phone: [facility] 250 DO Work Phone: Start: 02-28-2023 End: 02-28-2023 ambulatory Suhas Garrett Other [facility] Other Start: 02-28-2023 Office outpatient vi sit 15 minutes Suhas Garrett [facility] [place] Start: 02-26-[address] Suhas Garrett Facility:[id number] Start: 01-27-2023 End: 01-27-2023 ambulatory Suhas Garrett Other [facility] Other Start: 01-27-2023 Telephone encounter Suhas Garrett [facility] [place] Start: 12-24-2022 Office outpatient vi sit 25 minutes Suhas Garrett Work Phone: [facility] [facility] DO Work Phone: Start: 12-24-[address] Shy Parkahim Facility: Start: 12-06-2022 End: 12-06-2022 ambulatory Suhas Garrett Other [facility] Other Start: 12-06-2022 Office outpatient vi sit 15 minutes Suhas Garrett [facility] [place] Start: 09-20-2022 End: 09-20-2022 ambulatory Suhas Garrett Other [facility] Other Start: 09-20-2022 Office outpatient vi sit 15 minutes Suhas Garrett [facility] [place] Start: 08-14-2022 End: 08-14-2022 ambulatory Suhas Garrett Other [facility] Other Start: 08-14-2022 Telephone encounter Suhas Garrett [facility] [place] Start: 07-22-2022 End: 07-22-2022 ambulatory Suhas Garrett Other [facility] Other Start: 07-22-2022 Office outpatient vi sit 15 minutes Suhas Garrett [facility] [place] Start: 04-17-2022 End: 04-17-2022 ambulatory Suhas Garrett Other [facility] Other Start: 04-17-2022 Office outpatient vi sit 15 minutes Suhas Garrett [facility] [place] Start: 04-10-2022 End: 04-10-2022 ambulatory Suhas Gaeladan Other [facility] Other Start: 04-10-2022 Telephone encounter Suhas Ugo [facility] [place] Start: 04-03-2022 End: 04-03-2022 ambulatory Suhas Mayoadan Other [facility] Other Start: 04-03-2022 Telephone encounter Suhas Garrett [facility] [place] Start: 04-02-2022 End: 04-02-2022 ambulatory Suhas Garrett Other [facility] Other Start: 04-02-2022 Telephone encounter Suhas Garrett [facility] [place] Start: 02-26-2022 End: 02-26-2022 ambulatory Suhas Mayoadan Other [facility] Other Start: 02-26-2022 Telephone encounter Suhasraquel Garrett [facility] [place] Start: 02-25-2022 End: 02-25-2022 ambulatory Suhas Mayoadan Other [facility] Other Start: 02-25-2022 Telephone encounter Suhasraquel Garrett [facility] [place] Start: 02-22-2022 End: 02-22-2022 ambulatory Suhas Mayoadan Other [facility] Other Start: 02-22-2022 Office outpatient vi sit 25 minutes Suhas Garrett [facility] [place] Start: 02-21-2022 Patient encounter procedure Suhas Garrett Work Phone: [facility] [id number] [place] Work Phone: Start: 02-20-2022 End: 02-21-2022 ambulatory MAYO CARBAJAL Facility:[facility] Start: 02-14-2022 End: 02-14-2022 ambulatory Suhas Garrett Other [facility] Other Start: 02-14-2022 Office outpatient vi sit 25 minutes Suhas Garrett [facility] [place] Start: 01-11-2022 End: 01-11-2022 ambulatory Suhas Garrett Other [facility] Other Start: 01-11-2022 Nursing evaluation o f patient and report Suhas Garrett [facility] [place] Start: 01-11-2022 Telephone encounter Suhas Garrett [facility] [place] Start: 12-26-2021 Office outpatient vi sit 10 minutes Suhas Garrett Work Phone: [facility] 250 DO Work Phone: Start: 12-26-[address] Suhas Garrett Facility: Start: 12-20-2021 End: 12-20-2021 ambulatory Suhas Garrett Other [facility] Other Start: 12-20-2021 Telephone encounter Suhas Garrett [facility] [place] Start: 12-13-2021 Office outpatient vi sit 25 minutes Suhas Garrett Work Phone: [facility] Work Phone: Start: 11-02-2021 End: 11-02-2021 ambulatory Suhas Garrett Other [facility] Other Start: 11-02-2021 Telephone encounter Suhas Garrett [facility] [place] Start: 10-01-2021 End: 10-01-2021 ambulatory Suhas Garrett Other [facility] Other Start: 10-01-2021 Office outpatient vi sit 15 minutes Suhas Garrett [facility] [place] Start: 09-10-2021 End: 09-10-2021 ambulatory Suhas Garrett Other [facility] Other Start: 09-10-2021 Telephone encounter Suhas Garrett [facility] [place] Start: 08-20-2021 End: 08-20-2021 ambulatory Suhas Garrett Other [facility] Other Start: 08-20-2021 Telephone encounter Suhas Garrett [facility] [place] Start: 08-02-2021 End: 08-02-2021 ambulatory Suhasraquel Garrett Other [facility] Other Start: 08-02-2021 Office outpatient vi sit 15 minutes Suhas Garrett [facility] [place] Start: 07-25-2021 End: 07-25-2021 ambulatory Suhasraquel Garrett Other [facility] Other Start: 07-25-2021 Telephone encounter Suhas Garrett [facility] [place] Start: 05-08-2021 End: 05-08-2021 ambulatory Suhas Garrett Other [facility] Other Start: 05-08-2021 Telephone encounter Suhas Garrett [facility] [place] Start: 04-26-2021 End: 04-26-2021 ambulatory Suhasraquel Garrett Other [facility] Other Start: 04-26-2021 Office outpatient vi sit 25 minutes Suhas Garrett [facility] [place] Procedures Date Procedure Procedure Detail 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 [...] DTaP/Tdap/Td Vaccines (2 - Td or Tdap) [facility] Start: 01-26-2026 End: 01-26-2026 Patient encounter procedure 01/26/2026 11:00 AM EDT Office Visit [facility] [address] [place] [address] Shy Wolf MD [address] [place] [address] [facility] Start: 12-21-2025 Echocardiography Echocardiogram [facility] Start: 12-20-2025 End: 12-20-2025 Patient encounter procedure 12/20/2025 10:45 AM EDT Appointment [facility] [address] [place] [address] [facility] Start: 12-14-2025 End: 01-14-2027 US Heart Transthoracic Transthoracic Echo Complete Echocardiography Routine Nonrheumatic aortic valve stenosis Expected: 12/14/2025 (Approximate), Expires: 01/14/2027 [facility] Service Area Work Phone: Comment on above: Expected: 12/14/2025 (Approximate), Expi res: 01/14/2027 Start: 08-07-2025 Medicare Annual Wellness Visit Medicare Annual Wellness Visit (AWV) [facility] Start: 02-10-2025 Echocardiography Echocardiogram [facility] Start: 02-07-2025 Influenza vaccination Influenza Vaccine (#1) [facility] Start: 01-14-2025 End: 04-16-2026 US Heart Transthoracic Transthoracic Echo Complete Echocardiography Routine Aortic valve stenosis, etiology of cardiac valve disease unspecified Expected: 01/14/2025 (Approximate), Expires: 04/16/2026 [facility] Service Area Work Phone: Comment on above: Expected: 01/14/2025 (Approximate), Expi res: 04/16/2026 Start: 01-14-2025 End: 01-14-2025 Patient encounter procedure 01/14/2025 11:00 AM EDT Office Visit [address] [place] [address] Shy Wolf MD [address] [place], [place] [id number] [facility] Start: 12-21-2024 End: 12-21-2024 Patient encounter procedure 12/21/2024 12:30 PM EDT Appointment [place] [id number] [place] [address] [facility] Start: 10-06-2024 COVID-19 Vaccine ( season) COVID-19 Vaccine ( season) [facility] Start: 03-16-2024 End: 03-16-2024 Patient encounter procedure 03/16/2024 11:20 AM EDT Office Visit [place] [id number] [place] [address] Shy Wolf MD [address] [place] [address] [facility] Start: 02-19-2024 Screening for osteoporosis Bone Density Scan [facility] Start: 02-11-2024 End: 02-11-2024 Patient encounter procedure 02/11/2024 12:30 PM EDT Appointment [place] [id number] [place] [address] [facility] Start: 02-08-2024 COVID-19 Vaccine ( season) COVID-19 Vaccine ( season) [facility] Start: 02-08-2024 Influenza vaccination Influenza Vaccine (#1) [facility] Start: 02-08-2024 End: 06-19-2025 US Heart Transthoracic Transthoracic Echo (TTE) Complete Echocardiography Routine Aortic valve stenosis, etiology of cardiac valve disease unspecified Expected: 02/08/2024 (Approximate), Expires: 06/19/2025 [facility] Service Area Work Phone: Comment on above: Expected: 02/08/2024 (Approximate), Expi res: 06/19/2025 Start: 06-19-2023 FUV, Provider: Shy Wolf, Status: Pen, Time: 11:00 AM FUV, Provider: Shy Wolf, Status: Pen, Time: 11:00 [facility] Start: 05-28-2023 COVID-19 Vaccine (5 - Moderna series) COVID-19 Vaccine (5 - Moderna series) [facility] Start: 02-26-2023 ECHO, Provider: SAMUEL YII ULTRASOUND 01,[id number], Status: Pen, Time: 10:45 AM ECHO, Provider: SAMUEL HHVI ULTRASOUND 01,[id number], Status: Pen, Time: 10:45 AM [facility] 250 DO Work Phone: Start: 12-24-2022 FUV, Provider: Shy Wolf, Status: Pen, Time: 11:20 AM FUV, Provider: Shy Wolf, Status: Pen, Time: 11:20 AM [facility] Work Phone: Start: 02-21-2022 CAROTID, Provider: SAMUEL HHVI ULTRASOUND 01,[id number], Status: Pen, Time: 12:30 PM CAROTID, Provider: SAMUEL HHVI ULTRASOUND 01,[id number], Status: Pen, Time: 12:30 PM [facility] Work Phone: Start: 02-21-2022 ECHO, Provider: SAMUEL HHVI ULTRASOUND 01,[id number], Status: Pen, Time: 10:45 AM ECHO, Provider: SAMUEL HHVI ULTRASOUND 01,[id number], Status: Pen, Time: 10:45 AM [facility] Work Phone: Start: 01-17-2022 CAROTID, Provider: SAMUEL HHVI ULTRASOUND 01,[id number], Status: Pen, Time: 2:30 PM CAROTID, Provider: SAMUEL HHVI ULTRASOUND 01,[id number], Status: Pen, Time: 2:30 PM [facility] Work Phone: Start: 01-17-2022 ECHO, Provider: SAMUEL HHVI ULTRASOUND 01,[id number], Status: Pen, Time: 1:30 PM ECHO, Provider: SAMUEL HHVI ULTRASOUND 01,[id number], Status: Pen, Time: 1:30 PM [facility] Work Phone: Start: 12-26-2021 NURSEVST, Provider: MAGDA DANIEL RECREATIONAL DIRECTOR 1,[id number], Status: Pen, Time: 11:00 AM NURSEVST, Provider: MAGDA DANIEL RECREATIONAL DIRECTOR 1,[id number], Status: Pen, Time: 11:00 AM [facility] Work Phone: Start: 1996 Hepatitis B Vaccines (1 of 3 - Risk 3-dose series) Hepatitis B Vaccines (1 of 3 - Risk 3-dose series) [facility] Start: 08-11-1955 Hepatitis A Vaccines (1 of 2 - Risk 2-dose series) Hepatitis A Vaccines (1 of 2 - Risk 2-dose series) [facility] Start: 1936 Creatinine measurement Creatinine Level [facility] Start: 1936 Lipid panel Lipid Panel [facility] Start: 1936 Medicare Annual Wellness Visit Medicare Annual Wellness Visit (AWV) [facility] Start: 1936 Potassium measurement Potassium Level [facility] Start: 1936 Thyroid stimulating hormone measurement TSH Level [facility] ECG 12 Lead ECG 12 Lead ECG Routine 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 Ordered: 12/08/2024 [facility] Service Area Work Phone: Comment on above: Ordered: 12/08/2024 End: 02-11-2024 US Heart Transthoracic [facility] Service Area Work Phone: Comment on above: Once for 1 Occurrences starting 02/11/20 24 until 02/11/2024 Immunizations Immunization Date Immunization Notes Care Provider Fa doug 04-23-2024 Pneumococcal conjuga te vaccine, 20-valent (PREVNAR 20) Shy Wolf MD Work Phone: [facility] Work Phone: 04-07-2024 Moderna COVID-19 vaccine, 12 years and older (50mcg/0.5mL)(Spikevax) Shy Wolf MD Work Phone: [facility] Work Phone: 04-07-2024 Seasonal trivalent influenza vaccine, adjuvanted, preservative free Shy Wolf MD Work Phone: [facility] Work Phone: 04-07-2024 influenza virus vaccine, unspecified formulation Reuben BURGER Work Phone: [facility] Work Phone: 06-07-2023 RESPIRATORY SYNCYTIA L VIRUS (RSV), ELIGIBLE PTS, 0.5 ML (ABRYSVO) Shy Wolf MD Work Phone: [facility] Work Phone: 04-02-2023 Influenza, Seasonal, Quadrivalent, Adjuvanted Shy Wolf MD Work Phone: [facility] Work Phone: 04-02-2023 Moderna COVID-19 vaccine, 12 years and older (50mcg/0.5mL)(Spikevax) Shy Wolf MD Work Phone: [facility] Work Phone: 04-02-2023 influenza virus vaccine, unspecified formulation Susie 2 [facility] Work Phone: 04-17-2022 Moderna COVID-19 Bivalent 50 MCG/0.5ML Intramuscular Suspension Suhas Garrett Work Phone: [facility] 250 DO Work Phone: 03-21-2022 Fluad Quadrivalent 0 .5 ML Intramuscular Prefilled Syringe Suhas Garrett Work Phone: [facility] 250 DO Work Phone: 03-21-2022 influenza, seasonal, injectable Suhas Garrett Other [facility] Other 11-14-2021 Moderna COVID-19 Vaccine 100 MCG/0.5ML Intramuscular Suspension Suhas Garrett Work Phone: [facility] Work Phone: 04-05-2021 Moderna COVID-19 Vaccine 100 MCG/0.5ML Intramuscular Suspension Suhas Garrett Work Phone: [facility] Work Phone: 03-19-2021 influenza, seasonal, injectable Suhas Garrett Other [facility] Other 08-08-2020 Moderna COVID-19 Vaccine 100 MCG/0.5ML Intramuscular Suspension Suhas P Ugo Work Phone: [facility] Work Phone: 07-11-2020 Moderna COVID-19 Vaccine 100 MCG/0.5ML Intramuscular Suspension Suhas P Ugo Work Phone: [facility] Work Phone: 04-28-2020 pneumococcal polysaccharide vaccine, 23 valent Suhas Garrett Other [facility] Other 03-06-2020 Seasonal trivalent influenza vaccine, adjuvanted, preservative free Suhas P Gaels Work Phone: [facility] Work Phone: 03-06-2020 influenza, seasonal, injectable Suhasraquel Mayos Other [facility] Other 02-08-2020 influenza virus vaccine, unspecified formulation Suhas P Kuns Work Phone: [facility] Work Phone: 02-08-2020 influenza, seasonal, injectable Suhas Kuns Other [facility] Other 05-04-2019 zoster vaccine recombinant Suhas Mayos Other [facility] Other 03-09-2019 influenza, high dose seasonal, preservative-free Suhas P Kuns Work Phone: [facility] Work Phone: 03-04-2019 influenza, seasonal, injectable Suhas Mayos Other [facility] Other 02-04-2019 zoster vaccine recombinant Suhas Mayos Other [facility] Other 05-12-2018 tetanus toxoid, redu bety diphtheria toxoid, and acellular pertussis vaccine, adsorbed Suhas Mayos Other [facility] Other 03-16-2018 Seasonal trivalent influenza vaccine, adjuvanted, preservative free Shy Wolf MD Work Phone: [facility] Work Phone: 03-09-2018 influenza virus vaccine, unspecified formulation Suhas P Kuns Work Phone: [facility] Work Phone: 04-09-2017 influenza virus vaccine, unspecified formulation Suhas P Kuns Work Phone: [facility] Work Phone: 03-28-2017 Seasonal trivalent influenza vaccine, adjuvanted, preservative free Suhas P Ugo Work Phone: [facility] Work Phone: 05-24-2016 pneumococcal conjuga te vaccine, 13 valent Shy Wolf MD Work Phone: [facility] Work Phone: 05-23-2016 pneumococcal conjuga te vaccine, 13 valent Suhasraquel Garrett Other [facility] [employer] Other 04-01-2016 Seasonal trivalent influenza vaccine, adjuvanted, preservative free Suhas P Ugo Work Phone: [facility] Work Phone: 03-09-2016 influenza virus vaccine, unspecified formulation Suhas P Ugo Work Phone: [facility] Work Phone: 03-09-2016 pneumococcal conjuga te vaccine, 13 valent Suhas P Ugo Work Phone: [facility] Work Phone: 04-07-2015 influenza, injectabl e, quadrivalent, contains preservative Suhas P Kuns Work Phone: [facility] Work Phone: 03-09-2015 influenza virus vaccine, unspecified formulation Suhas P Ugo Work Phone: [facility] Work Phone: 04-05-2014 influenza, seasonal, injectable, preservative free Suhas P Gaels Work Phone: [facility] Work Phone: 03-09-2014 influenza virus vaccine, whole virus Suhas Garrett Work Phone: [facility] Work Phone: 03-23-2013 influenza, seasonal, injectable Suhas P Gaels Work Phone: [facility] Work Phone: 03-09-2013 influenza virus vaccine, unspecified formulation Suhas Garrett Work Phone: [facility] Work Phone: 04-14-2012 influenza, injectabl e, quadrivalent, contains preservative Suhas Garrett Other [facility] [employer] Other 06-09-2011 influenza virus vaccine, unspecified formulation Suhas Garrett Work Phone: [facility] Work Phone: 06-09-2010 influenza virus vaccine, unspecified formulation Suhas Garrett Work Phone: [facility] Work Phone: 06-09-2009 influenza virus vaccine, unspecified formulation Suhas Garrett Work Phone: [facility] Work Phone: 05-30-2009 novel [id number], preservative-free, injectable Suhas Garrett Work Phone: [facility] Work Phone: 10-19-2007 varicella virus vaccine Belkys Garrett Work Phone: [facility] Work Phone: 06-09-2006 pneumococcal polysaccharide vaccine, 23 valent Suhas Garrett Work Phone: [facility] Work Phone: Payers Date Payer Category Payer Self-pay 2022 Managed Care (Private) [facility] [id number] 2022 Private Health Insurance [id number] 2001 Medicare [id number] 2001 Unknown 1959 Medicare [id number] 1959 Private Health Insurance [id number] 1936 Unknown [id number] [id number]. 2.593 1936 Unknown [id number] 2.16840.1.053223.3.579. 2.356 1936 Unknown [id number] 2.16840.1.740689.3.579. 2.356 1936 Unknown [id number] 2.16840.1.596044.3.579. 2.1068 1936 Unknown [id number] 2.16840.1.043859.3.579. 2.196 1936 Unknown [id number] 2.16840.1.063289.3.579. 2.196 1936 Unknown [id number] 2.16840.1.163874.3.579. 2.196 1936 Unknown [id number] 2.16840.1.695300.3.579. 2.196 1936 Unknown [id number] 2.16.840.1.197633.3.579. 2.196 1936 Unknown [id number] 2.16840.1.869844.3.579. 2.1246 1936 Unknown [id number] 2.16.840.1.459575.3.579. 2.1246 1936 Unknown [id number] 2.16.840.1.907299.3.579. 2.1244 1936 Unknown [id number] 2.16.840.1.091041.3.579. 2.1244 1936 Unknown [id number] 2.16.840.1.769726.3.579. 2.1244 Unknown [id number] 2.16.840.1.722638.3.579. 2.531 Unknown [id number] 2.16.840.1.599019.3.579. 2.531 Unknown [id number] 2.16.840.1.613425.3.579. 2.531 Unknown [id number] 2.16.840.1.650517.3.579. 2.531 Social History Date Type Detail Facility Unknown if ever smoked [facility] Other Start: 06-19-2023 End: 01-14-2025 Sex Assigned At [facility] Other Start: 06-19-2023 End: 01-14-2025 Caffeine use Caffeine use [facility] Work Phone: Start: 06-19-2023 [facility] Work Phone: Start: 06-19-2023 Tobacco use and exposure Smokeless tobacco non-user [facility] Work Phone: Start: 1935 [facility]: Start: 06-09-2023 End: 04-16-2024 Exposure to SARS-CoV-2 (event) Not sure [facility] Start: 04-16-2024 End: 01-14-2025 Alcoholic beverage intake Current drinker of alcohol (finding) [facility] Work Phone: Start: 05-03-2022 Sex Female [facility] Clinical Notes 02-15-2015 to 01-14-2025 Shy Wolf MD - 01/14/2025 11:00 AM EDTPatient InstructionsAttaAdinamayo Gibbs YASMIN Burns-HOOKER INSPECTOR - 12/07/2024 3:00 PM EDTPatient InstructionsShy Wolf MD - 04/16/2024 1:30 PM EST [...] discussion and plan. documented in this encounter [facility] Work Phone: 01-14-2025 Instructions Richelle Frey LPN [...] be sent through Care Everywhere.Heart Healthy Diet (Yi)documented in this encounter [facility] Work Phone: 12-07-2024 History of Present illness [...] in patient record. Reuben Burns MSN, JENNYFER, PMHNP-[facility] [place], [place] Please excuse any errors in grammar or translation related to this dictation. Voice recognition software was utilized to prepare this document. documented in this encounter [facility] Work Phone: 12-07-2024 Instructions JENNYFER Garsia - [...] Wolf as scheduled documented in this encounter [facility] Work Phone: 12-07-2024 Miscellaneous Notes Addended by: REUBEN BURNS on: 12/08/2024 02:08 PM Modules accepted: Orders documented in this encounter [facility] Work Phone: 12-07-2024 Note Addended by: REUBEN BURNS on: 12/08/2024 02:08 PM Modules accepted: Orders [facility] Work Phone: 04-16-2024 History of Present illness [...] discussion and plan. documented in this encounter [facility] Work Phone: 04-16-2024 Instructions Sherin Mendez LPN [...] month follow up documented in this encounter [facility] Work Phone: 07-18-2023 Evaluation note Encounter Date Diagnosis Assessment Notes Jul, PMR (polymya lgia rheumati ca) (ICD-10 - M35.3) [facility] Other 02-06-2024 Evaluation note* Encounter Date Diagnosis Assessment Notes Treatment Notes Treatment Clinical Notes Jul, PMR (polymyalgia rheumatica) (ICD-10 - M35.3) [facility] Other 02-01-2024 Evaluation note* Encounter Date Diagnosis Assessment Notes Treatment Notes Treatment Clinical Notes Jul, Hypothyroidism (ICD-10 - E03.9) [facility] Other 01-29-2024 Evaluation note* Encounter Date Diagnosis Assessment Notes Treatment Notes Treatment Clinical Notes Jun, Hypothyroidism (ICD- 10 - E03.9) Jun, Hyperthyroidism (ICD-10 - E05.90) [facility] Other 01-26-2024 Evaluation note* Encounter Date Diagnosis [...] medications in combination with eachother. Also discussed longwall foreman steriod use in regards to her condition. [...] requires sooner she is welcome to call. [facility] Other 01-11-2024 Evaluation note* Encounter Date Diagnosis Assessment Notes Treatment Notes Treatment Clinical Notes Jun, PMR (polymyalgia rheumatica) (ICD-10 - M35.3) [facility] Other 01-11-2024 History of Present illness Narrative* [...] of Shy Wolf MD. [facility]: [phone] 641-444701-11-2024 Instructions* Patient Instructions* Yevgeniy Cortez MA - [...] time of your visit. [facility] Work Phone: [phone] 419-168312-22-2023 Evaluation note* Encounter Date Diagnosis Assessment Notes [...] recommend the patient get the RSV vaccine. [facility] Other 12-20-2023 Evaluation note* Encounter Date Diagnosis Assessment Notes Treatment Notes Treatment Clinical Notes May, Hypertension (ICD-10 - I10) May, Hypothyroidism (ICD-10 - E03.9) [facility] Other 11-10-2023 Evaluation note* Encounter Date Diagnosis Assessment Notes Treatment Notes Treatment Clinical Notes Apr, PMR (polymyalgia rheumatica) (ICD-10 - M35.3) [facility] Other 09-22-2023 Evaluation note* Encounter Date Diagnosis Assessment Notes Treatment Notes Treatment Clinical Notes Feb, PMR (polymyalgia rheumatica) (ICD-10 - M35.3) She was encouraged to take 2.5mg daily. Patient is agreeable. Feb, Hypertension (ICD-10 - I10) Blood pressure is satisfactory, she is to follow with cardiology as scheduled. [facility] Other 08-21-2023 Evaluation note* Encounter Date Diagnosis Assessment Notes Treatment Notes Treatment Clinical Notes Jan, Hypertension (ICD-10 - I10) [facility] Other 06-30-2023 Evaluation note* Encounter Date Diagnosis [...] would like to do. Patient is agreeable. [facility] Other 04-14-2023 Evaluation note* Encounter Date Diagnosis [...] tablets daily. We will continue to monitor. [facility] Other 03-08-2023 Evaluation note* Encounter Date Diagnosis Assessment Notes Treatment Notes Treatment Clinical Notes Aug, PMR (polymyalgia rheumatica) (ICD-10 - M35.3) [facility] Other 02-13-2023 Evaluation note* Encounter Date Diagnosis [...] states she has an upcoming appointment with theology teacher and she will discuss making medication changes at that time. [facility] Other 11-09-2022 Evaluation note* Encounter Date Diagnosis [...] can cut Apr, Hyperlipidemia (ICD-10 - E78.5) [facility] Other 11-02-2022 Evaluation note* Encounter Date Diagnosis Assessment Notes Treatment Notes Treatment Clinical Notes Apr, PMR (polymyalgia rheumatica) (ICD-10 - M35.3) [facility] Other 10-26-2022 Evaluation note* Encounter Date Diagnosis Assessment Notes Treatment Notes Treatment Clinical Notes Mar, Lumbar back pain (ICD-10 - M54.50) [facility] Other 09-20-2022 Evaluation note* Encounter Date Diagnosis Assessment Notes Treatment Notes Treatment Clinical Notes Feb, Elevated liver function tests (ICD-10 - R79.89) [facility] Other 09-16-2022 Evaluation note* Encounter Date Diagnosis Assessment Notes Treatment Notes Treatment Clinical Notes Feb, Acute pain of left shoulder (ICD-10 - M25.512) [place] [facility] report reviewed from 02/20/22 . The [...] pain (ICD-10 - R10.13) The patient advised [place] could be causing her GI upset , [...] month Bon[place] at her next office visit. [facility] Other 09-08-2022 Evaluation note* Encounter Date Diagnosis [...] (ICD-10 - M85.80) Noted on Lumbar x-ray. [facility] Other 08-05-2022 Evaluation note* Encounter Date Diagnosis Assessment Notes Treatment Notes Treatment Clinical Notes Jan, COVID-19 (ICD-10 - U07.1) [facility] Other 08-05-2022 Evaluation note* Encounter Date Diagnosis Assessment Notes Treatment Notes Treatment Clinical Notes Jan, Cough (ICD-10 - R05.9) In house covid test is positive. Treatment plan discussed in TE. [facility] Other 07-14-2022 Evaluation note* Encounter Date Diagnosis Assessment Notes Treatment Notes Treatment Clinical Notes Dec, PMR (polymyalgia rheumatica) (ICD-10 - M35.3) [facility] Other 05-27-2022 Evaluation note* Encounter Date Diagnosis Assessment Notes Treatment Notes Treatment Clinical Notes October, PMR (polymyalgia rheumatica) (ICD-10 - M35.3) [facility] Other 04-25-2022 Evaluation note* Encounter Date Diagnosis [...] The patient encourged to continue following with theology teacher annually in December as scheduled. I did forward a copy of most current blood work results . [facility] Other 04-04-2022 Evaluation note* Encounter Date Diagnosis Assessment Notes Treatment Notes Treatment Clinical Notes Sep, PMR (polymyalgia rheumatica) (ICD-10 - M35.3) Sep, Hypertension (ICD-10 - I10) [facility] Other 02-24-2022 Evaluation note* Encounter Date Diagnosis [...] if needed. We will continue to montior. [facility] Other 02-16-2022 Evaluation note* Encounter Date Diagnosis Assessment Notes Treatment Notes Treatment Clinical Notes Jul, PMR (polymyalgia rheumatica) (ICD-10 - M35.3) [facility] Other 11-30-2021 Evaluation note* Encounter Date Diagnosis Assessment Notes Treatment Notes Treatment Clinical Notes Apr, PMR (polymyalgia rheumatica) (ICD-10 - M35.3) [facility] Other 11-18-2021 Evaluation note* Encounter Date Diagnosis [...] Hypothyroidism (ICD-10 - E03.9) Blood work ordered. [facility] Other 09-09-2015 History general Narrative - Reported* Type Description Date Medical History Shingles Medical History 02-15-15-mammogram-negativ e Medical History [id number]-qztweqvrbhb-qmlpqe, repea t in 3 yrs Medical History 03/2017- colonoscopy- normal Medical History f/u with cardiology [facility] Medical History ECHO 09/2016 Surgical History Appendectomy Surgical History Gallbladder Removal Surgical History Ovarian Cyst Removal Surgical History Coccyx repair Surgical History Cataracts Bilateral Eyes Surgical History thyroidectomy Dr. Forbes 10/14/2019 Hospitalization History Childbirth x5 Hospitalization History See Above [facility] [employer] Other Evaluation noteNo [facility]St[facility] [employer] Other Evaluation note* Diagnosis Aortic valve stenosis, etiology of cardiac valve disease unspecified Essential hypertension Unspecified essential hypertension Hyperlipidemia, unspecified hyperlipidemia type Never smoked any substance documented in this encounter [facility] Work Phone: Evaluation note* Diagnosis Aortic valve stenosis, etiology of cardiac valve disease unspecified- Primary Essential hypertension Unspecified essential hypertension Hyperlipidemia, unspecified hyperlipidemia type Never smoked any substance BMI 26.0-26.9,adult Hypothyroidism, unspecified type documented in this encounter [facility] Work Phone: Evaluation note* Diagnosis Nonrheumatic aortic valve stenosis Aortic valve stenosis, etiology of cardiac valve disease unspecified documented in this encounter [facility] Work Phone: Evaluation note* Diagnosis 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- Primary BMI 26.0-26.9,adult documented in this encounter [facility] Work Phone: Evaluation note* Diagnosis Aortic valve stenosis, etiology of cardiac valve disease unspecified documented in this encounter [facility] Work Phone: Evaluation note* Diagnosis Nonrheumatic aortic valve stenosis- Primary 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 Hyperlipidemia, unspecified hyperlipidemia type PMR (polymyalgia rheumatica) (Multi) Polymyalgia rheumatica Hypothyroidism, unspecified type BMI 27.0-27.9,adult Never smoked any substance Overweight documented in this encounter [facility] Work Phone: Reason for visit Narrative* CV Imaging (Routine) - Authorized Specialty Diagnoses / Procedures Referred By Contac t Referred To Contact Cardiology Diagnoses Aortic valve stenosis, etiology of cardiac valve disease unspecified Procedures Transthoracic Echo Complete [place] ECHO TTHRC R-T 2D W/WOM-MODE COMPL SPEC&COLR D Shy Wolf MD [address] [facility] [address], [address] [address] Phone: tel: fax: Referral ID Status Reason Start Date Expiration Date Visits Requested Visits Authorized [id number] Authorized Perform Procedure 04/16/2024 04/16/2025 1 1 [facility] Work Phone: Chief Complaint * LAVONNE VILLATORO [...] being tapered gradually * Shy Wolf MD, [facility] Family History No Family History Records [...] PMR (polymyalgia rhe umatica) (M35.3) Referral Organization [facility] [place] Referring Provider First Name Suhas Referring Provider Last Name Ugo Referring Provider [facility] Family Prac sukhjinder Referred Organization [facility] Referred Address [address] [place], [place],[address] Referred Provider Specialty Rheumatology Referral Priority Routine [...] COMPL SPEC&COLR D Shy Wolf MD [address] [facility] [address], [address] [place] [address] Referral ID Status Reason Start Date Expiration Date Visits Requested Visits Authorized [id number] Pending Review Perform Procedure 06/19/2023 06/18/2024 1 1 Specialty Diagnoses / Procedures Referred By Contac t Referred To Contact Cardiology Diagnoses Aortic valve stenosis, etiology of cardiac valve disease unspecified Procedures Follow Up In Cardiology Shy Wolf MD [address] [facility] [address], [address] [address] Shy Wolf MD [address] [facility] [address], [address] [address] Referral ID Status Reason Start Date Expiration Date V isits Requested Visits Authorized [id number] Authorized 06/19/2023 06/18/2024 1 1 Additional Source Comments REASON FOR VISIT (unrecogniz ed section and content) Reason Comments Follow-up 9 month, echocardiog taz results Specialty Diagnoses / Procedures Referred By Contac t Referred To Contact Cardiology Diagnoses Aortic valve stenosis, etiology of cardiac valve disease unspecified Procedures Follow Up In Cardiology Shy Wolf MD [address] [facility] [address], [address] [address] Phone: tel: fax: Shy Wolf MD [address] [facility] [address], [address] [address] Phone: tel: fax: Referral ID Status Reason Start Date Expiration Date V isits Requested Visits Authorized [id number] Authorized 04/16/2024 04/16/2025 1 1 Reason Comments Follow-up 6m Reason Comments Follow-up 9m Referral ID Status Reason Start Date Expiration Date V isits Requested Visits Authorized [id number] Authorized 06/19/2023 06/18/2024 1 1 Specialty Diagnoses / Procedures Referred By Contac t Referred To Contact Cardiology Diagnoses Nonrheumatic aortic valve stenosis Procedures Transthoracic Echo (TTE) Complete MO ECHO TRANSTHORC R-T 2D W/WO M-MODE REC F-UP/LMTD MO DOP ECHOCARD COLOR FLOW VELOCITY MAPPING MO DOP ECHOCARD PULSE WAVE W/SPECTRAL F-UP/LMTD STD Shy Wolf MD [address] [facility] [address], [address] [address] Referral ID Status Reason Start Date Expiration Date Visits Requested Visits Authorized [id number] Authorized Perform Procedure 03/03/2023 08/30/2023 1 1 Reason Comments Pre-op Clearance POC for spinal cord stimulator, scheduled 12.13.[address] Weston. INFORMATION SOURCE (unrecogn ized section and content) DATE CREATED AUTHOR 03/06/2022 [facility] DATE CREATED AUTHOR AUTHOR'S ORGANIZ ATION 12/25/2022 [facility] DATE CREATED AUTHOR AUTHOR'S ORGANIZ ATION 12/25/2022 [facility] DATE CREATED AUTHOR AUTHOR'S ORGANIZ ATION 03/03/2023 [facility] DATE CREATED AUTHOR AUTHOR'S ORGANIZ ATION 07/29/2024 [facility] DATE CREATED AUTHOR AUTHOR'S ORGANIZ ATION 11/05/2024 [facility] DATE CREATED AUTHOR AUTHOR'S ORGANIZ ATION 12/25/2024 [facility] DATE CREATED AUTHOR AUTHOR'S ORGANIZ ATION 01/16/2025 [facility] [employer] (unrecognized sec tion and content) Acquisition Professional Relationship Specialty Start Date End Date Suhas Garrett DO PCP - General 06/09/99 Acquisition Professional Relationship Specialty Start Date End Date Suhas Garrett DO [address] [place] [address] PCP - General Family Medicine 01/30/24 Acquisition Professional Relationship Specialty Start Date End Date Suhas Garrett DO [address] [place] [address] PCP - General Family Medicine 01/30/24 Acquisition Professional Relationship Specialty Start Date End Date Suhas Garrett, DO [address] [place] [address] PCP - General Family Medicine 01/30/24 Acquisition Professional Relationship Specialty Start Date End Date Suhas Garrett DO [address] [place] [address] PCP - General Family Medicine 01/30/24 Acquisition Professional Relationship Specialty Start Date End Date Suhas Garrett, DO [address] [place] [address] PCP - General Family Medicine 01/30/24 FOR [...] BE BASED ON THE PRIMARY CLINICAL RECORDS. [facility]. provides no warranty or guarantee of the accuracy or completeness of information in this document.
[2025-02-14 07:44] VITALS: BP 159/74; PULSE 50; TEMP 36.7; O2SAT 97
[2025-02-14] MEDS: 0.9 % SODIUM CHLORIDE 500 ML IV (07:57)
[2025-02-14] MEDS: CLINDAMYCIN PHOSPHATE/D5W 600 MG/50 ML PREMIX 100 MG IV (09:20)
[2025-02-14] MEDS: LIDOCAINE HCL 2%-EPINEPHRINE 1:200,000 20 ML MDV 10 ML INJ (09:35)
[2025-02-14] MEDS: BUPIVACAINE HCL 0.5% PF 50 MG/10 ML VIAL INJ (09:35)
[2025-02-14 09:55] VITALS: BP 161/71; PULSE 50; TEMP 36.5; O2SAT 99
--- NOTE | 2025-02-14 09:57 | W.PM.PROCNOT ---
Date of procedure: 02/14/25 Pre-op diagnosis: Pain due to lumbar stenosis with neurogenic claudication Post-op diagnosis: same as pre-op Procedure: Procedure Performed by: Gloria Weston M.D. Procedure: Placement of [employer] 16 contact neuroelectrode trial leads (x two) under fluoroscopic guidance *Needle Annealing Furnace Operator at the interspace below T11/12 *Final Lead Placement Level at the top of the vertebral body T7 Anesthesia: Monitored Anesthesia Care is medically necessary for the procedure due to the procedure requiring the patient to remain motionless for a prolonged period of time. Procedure: Risks, Benefits, Alternatives were reviewed and informed consent was obtained in the preop holding area. All questions were answered appropriately. The patient was brought to the operating room and placed in the prone position with padding under all bony prominences. A pre-procedure time out was performed specifying pt. name, nature site and side of surgery, and allergies. Anesthesia provided appropriate sedation as the skin over the thoracic and lumbar spine were prepped with duraprep and draped in the usual sterile fashion. Under fluoroscopic guidance, the above noted interspace was identified as the site for epidural needle entry. The skin and subcutaneous tissues were anesthetized approximately 1 level inferior to this point with a mixture of 1% lidocaine and 0.25% bupivacaine. Two 14 gauge tuouy needles were inserted to the superior aspect of the lamina just inferior to the target interspace. Then, using loss of resistance technique as well as fluoroscopic guidance, the epidural space was entered. Two [employer] Trial Stimulator Leads were then advanced under intermittent fluoroscopic guidance until the distal tip of the electrode was observed to be in position at the final position noted above. After appropriate electrode placement was achieved, stimulation was tested intraoperatively with multiple lead configurations until concordant paresthesias were obtained covering the areas of the patient's pain. At this point, the needles and stylets were removed carefully and the leads were secured to the skin using steri-strips. The region was covered using a sterile tegaderm bandage. The patient was escorted to the recovery area in stable condition having tolerated the procedure well. Anesthesia: MAC Surgeon: Gloria Weston Pathology: none sent Condition: stable Disposition: no change
[2025-02-14 10:00] VITALS: BP 168/69; PULSE 49; O2SAT 98
== END 2025-02-14 10:50 | disposition home or self-care (01) ==
PROVIDERS: PCP Family Medicine; Visit Provider Anesthesiology
DX: M48.062 Spinal stenosis, lumbar region with neurogenic claudication (principal); Z46.2 Encounter for fitting and adjustment of other devices related to nervous system and special senses
CPT/HCPCS: 36415; 63650; C1778; J0665; J1100; J2250; J2704; J3010

== ENCOUNTER 2025-02-16 10:52 | Outpatient (OUT) | payer MEDICARE, OTHER, SELFPAY ==
--- OUTSIDE RECORDS SUMMARY | 2025-02-16 10:57 | XMS_ITS | CCD ---
Author Organization [facility] Providers Care Aerographer Name Role Phone Suhas Garrett Unavailable Suhas [...] Garrett DO Primary Care Provider Suhas Garrett DO Primary Care Provider Suhas [...] Unavailable Suhas Garrett DO Primary Care Provider [phone] SHY WOLF Referring Unavailable SUHAS GARRETT Primary [...] Translations: [Fosamax] Drug Allergy 3 Unknown, Other [facility] Repository (20 sources) Amoxicillin; Translations: [amoxicillin] Drug Allergy 9 hives [facility] [place] Other (20 sources) Phenytoin; Translations: [Dilantin CAPS] Drug Allergy [address] [facility] [place] Other (20 sources) Valproate; Translations: [Depakote ER TB24] Drug Allergy Unknown [address] [facility] [place] Other (1 source) Alendronate Drug Allergy [facility] Repository (1 source) Amoxicillin Drug Allergy [facility] Repository (1 source) Phenytoin Drug Allergy [facility] Repository (1 source) Valproate Drug Allergy [facility] Repository (20 sources) Acetaminophen / HYDROcodone Drug Allergy elevated liver enzymes [facility] [place] Other (6 sources) Alendronate Drug Allergy 3 Unknown, Other [facility] (8 sources) HYDROcodone; Translations: [HYDROCODONE] Drug Allergy 4 GI Upset [facility] Work Phone: (8 sources) Valproate; Translations: [VALPROIC ACID] Drug Allergy 3 Unknown [facility] Work Phone: (1 source) Acetaminophen Drug Allergy 4 [facility] Repository (1 source) Alendronate Drug Allergy 4 [facility] Repository (1 source) Amoxicillin Drug Allergy 4 [facility] Repository (1 source) HYDROcodone Drug Allergy 4 [facility] Repository (1 source) Phenytoin Drug Allergy 4 [facility] Repository (1 source) Valproate Drug Allergy 4 [facility] Repository (5 sources) Valproate; Translations: [DIVALPROEX] Drug Allergy 5 [facility] Work Phone: Medications Current Medications Medication [...] tablet by mouth once daily. 0 Active [place] 3 1000 MG (20 sources) take 1 capsule by mouth once daily [place] 3 1000 MG 1 capsule with a meal Orally Once a day Active predniSONE 10 mg oral tablet (20 sources) Start: 12-09-2024 take 1 tablet by mouth once daily predniSONE (Deltasone) 10 mg tablet Take 1 tablet (10 mg) by mouth once daily. 12/09/2024 Active Start: 07-05-2023 take 2 tablets by mo [facility] once daily predniSONE 10 MG 2 tablets x 7 days, 1 tablet x 7 days, then 1/2 tablet or 5mg daily thereafter Orally as directed Jun, Active Start: 04-23-2023 take 1 tablet by abrb every twenty-four hours predniSONE 20 MG 1 [...] take 1 capsule by mouth once daily [place]-3 Fish Oil 1000 MG Oral Capsule TAKE [...] 0 Refills: 0 Ordered: 13-Dec-2021 DO Active [place] 3 500 CAPS (4 sources) [place] 3 500 CAPS TAKE 1 CAPSULE Daily [...] Coronary arteriosclerosis; 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 [place] coronary artery without angina pectoris] Onset: 09-03-2023 [...] Other half-way (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; Translations: [OTH AVIAN KEEPER CURRENT DRUG THERAPY] Onset: 02-22-2022 Episodic Other [...] Interpretation Reference Range Facility TRANSTHORACIC ECHO (TTE) [facility] 12-21-2024 TRANSTHORACIC ECHO (TTE) [address], [address] [place] [address] TRANSTHORACIC ECHOCARDIOGRAM REPORT Patient Name: LAVONNE Bahena Physician: [id number] Shy Wolf MD, [facility] Study Date: 12/21/2024 Ordering Provider: [id number] SHY WOLF MRN/PID: [id number] Fellow: Nurse: Date of /Age: 3 1935 / 89 years Joint Cutter Machine: Sheridan Lemus RDCS, RVT Gender Assigned at F Additional Staff: : Height: 157.48 cm Admit Date: Weight: 65.77 kg Admission Status: Outpatient BSA / BMI: 1.67 m2 / 26.52 Department Location: [facility] Heart kg/m2 [place] Blood Pressure: 146 /68 mmHg Study Type: TRANSTHORACIC ECHO (TTE) COMPLETE Diagnosis/ICD: Nonrheumatic aortic (valve) stenosis-I35.0 Indication: HTN, Hyperlipidemia, 2/6 Systolic Murmur, Hypothyroid CPT Codes: Echo Complete w Full Doppler-68507 Study Detail: The following Echo studies were [...] 0.85 cm (more content not included)... Normal [facility] US Heart Transthoracicon Aortic Valve Area by Continuity of Peak Velocity 0.85 cm2 [facility] Work Phone: Aortic Valve Area by Continuity of VTI 0.9 cm2 [facility] Work Phone: AV mn grad 23 mmHg [facility] Work Phone: AV pk grad 43 mmHg [facility] Work Phone: AV pk haseeb 3.27 m/s [facility] Work Phone: LA vol index A/L 43.4 ml/m2 [facility] Work Phone: LV A4C EF 76.9 [facility] Work Phone: LV Biplane EF 71 % [facility] Work Phone: LV EF 68 % [facility] Work Phone: LVIDd 4.03 cm [facility] Work Phone: LVOT diam 1.89 cm [facility] Work Phone: MV avg E/e' ratio 15.93 [facility] Work Phone: MV E/A ratio 1 [facility] Work Phone: RV free wall pk S' 11.98 cm/s [facility] Work Phone: RVSP 34 mmHg [facility] Work Phone: Tricuspid annular plane systolic excursion 2.4 cm [facility] Work Phone: [address], [place] [address] TRANSTHORACIC ECHOCARDIOGRAM REPORT Patient Name: LAVONNE VILLATORO Reading Physician: [id number] Wolf MD, [facility] Study Date: 12/21/2024 Ordering Provider: [id number] SHY WOLF MRN/PID: [id number] Fellow: Nurse: Date of /Age: 3 1935 / 89 years Joint Cutter Machine: Sheridan Lemus RDCS T Gender Assigned at F Additional Staff: : Height: 157.48 cm Admit Date: Weight: 65.77 kg Admission Status: Outpatient BSA / BMI: 1.67 m2 / 26.52 Department Location: [facility] Heart kg/m2 [place] Blood Pressure: 146 /68 mmHg Study Type: TRANSTHORACIC ECHO (TTE) COMPLETE Diagnosis/ICD: Nonrheumatic aortic (valve) stenosis-I35.0 Indication: HTN, Hyperlipidemia, 2/6 Systolic Murmur, Hypothyroid CPT Codes: Echo Complete w Full Doppler-71003 Study Detail: The following Echo studies were [...] included)... Shy Winn M D - 12/21/[address], [address] [place] [address] TRANSTHORACIC ECHOCARDIOGRAM REPORT Patient Name: LAVONNE Bahena Physician: [id number] Shy Wolf MD, [facility] Study Date: 12/21/2024 Ordering Provider: [id number] SHY WOLF MRN/PID: [id number] Fellow: Nurse: Date of /Age: 3 1935 / 89 years Joint Cutter Machine: Sheridan Lemus RDCS RVT Gender Assigned at F Additional Staff: : Height: 157.48 cm Admit Date: Weight: 65.77 kg Admission Status: Outpatient BSA / BMI: 1.67 m2 / 26.52 Department Location: [employer]/[address] Blood Pressure: 146 /68 mmHg Study Type: TRANSTHORACIC ECHO (TTE) COMPLETE Diagnosis/ICD: Nonrheumatic aortic (valve) stenosis-I35.0 Indication: HTN, Hyperlipidemia, 2/6 Systolic Murmur, Hypothyroid CPT Codes: Echo Complete w Full Doppler-44161 Study Detail: The following Echo studies were [...] (18-25cm) LVOT VTI: (more content not included)... [facility] Work Phone: [facility] Work Phone: Complete Blood Count Auto Di ffon 07-28-2024 Basophils (Bld) [#/Vol] 0.1 10*3/uL Normal 0.0-0.2 [facility] Comment on above: Performed By: #### V [id number], CMP, TSH3, LIPID, CBC, T4F, ESR #### [address] Basophils/100 WBC (Bld) 1.1 % Normal . [facility] Comment on above: Performed By: #### V [id number], CMP, TSH3, LIPID, CBC, T4F, ESR #### [address] Eosinophils (Bld) [#/Vol] 0.1 10*3/uL Normal 0.0-0.45 [facility] Comment on above: Performed By: #### V [id number], CMP, TSH3, LIPID, CBC, T4F, ESR #### [address] Eosinophils/100 WBC (Bld) 2.2 % Normal . [facility] Comment on above: Performed By: #### V [id number], CMP, TSH3, LIPID, CBC, T4F, ESR #### [address] Erythrocyte distribution width (RBC) [Ratio] 13.5 % Normal 11.9-15.3 [facility] Comment on above: Performed By: #### V [id number], CMP, TSH3, LIPID, CBC, T4F, ESR #### [address] Hematocrit (Bld) [Volume fraction] 37.9 % Normal 34.0-46.4 [facility] Comment on above: Performed By: #### V [id number], CMP, TSH3, LIPID, CBC, T4F, ESR #### [address] Hemoglobin (Bld) [Mass/Vol] 12.9 g/dL Normal 11.8-15.4 [facility] Comment on above: Performed By: #### V [id number], CMP, TSH3, LIPID, CBC, T4F, ESR #### [address] Lymphocytes (Bld) [#/Vol] 2.2 10*3/uL Normal 1.00-4.8 [facility] Comment on above: Performed By: #### V [id number], CMP, TSH3, LIPID, CBC, T4F, ESR #### [address] Lymphocytes/100 WBC (Bld) 34.3 % Normal . [facility] Comment on above: Performed By: #### V [id number], CMP, TSH3, LIPID, CBC, T4F, ESR #### [address] MCH (RBC) [Entitic mass] 33.5 pg Normal 24.7-34.3 [facility] Comment on above: Performed By: #### V [id number], CMP, TSH3, LIPID, CBC, T4F, ESR #### [address] MCV (RBC) [Entitic vol] 98.4 fL Normal 80-100 [facility] Comment on above: Performed By: #### V [id number], CMP, TSH3, LIPID, CBC, T4F, ESR #### [address] Mean Corpuscular HGB Conc 34.1 g/dL Normal 32.0-35.0 [facility] Comment on above: Performed By: #### V [id number], CMP, TSH3, LIPID, CBC, T4F, ESR #### [address] Monocytes (Bld) [#/Vol] 0.6 10*3/uL Normal 0.0-0.8 [facility] Comment on above: Performed By: #### V [id number], CMP, TSH3, LIPID, CBC, T4F, ESR #### [address] Monocytes/100 WBC (Bld) 9.8 % Normal . [facility] Comment on above: Performed By: #### V [id number], CMP, TSH3, LIPID, CBC, T4F, ESR #### [address] Neutrophils (Bld) [#/Vol] 3.4 10*3/uL Normal 1.8-7.7 [facility] Comment on above: Performed By: #### V [id number], CMP, TSH3, LIPID, CBC, T4F, ESR #### [address] Neutrophils/100 WBC (Bld) 52.6 % Normal . [facility] Comment on above: Performed By: #### V [id number], CMP, TSH3, LIPID, CBC, T4F, ESR #### [address] NRBC% 0.3 /100{WBC} Normal 0-0.5 [facility] Comment on above: Performed By: #### V [id number], CMP, TSH3, LIPID, CBC, T4F, ESR #### [address] Platelet mean volume (Bld) [Entitic vol] 9.3 fL Normal 6.3-10.7 [facility] Comment on above: Performed By: #### V [id number], CMP, TSH3, LIPID, CBC, T4F, ESR #### [address] Platelets (Bld) [#/Vol] 208 10*3/uL Normal 150-450 [facility] Comment on above: Performed By: #### V [id number], CMP, TSH3, LIPID, CBC, T4F, ESR #### [address] RBC (Bld) [#/Vol] 3.85 10*6/uL Normal 3.60-5.00 [facility] Comment on above: Performed By: #### V [id number], CMP, TSH3, LIPID, CBC, T4F, ESR #### [address] WBC (Bld) [#/Vol] 6.6 10*3/uL Normal 3.8-11.6 [facility] Comment on above: Performed By: #### V [id number], CMP, TSH3, LIPID, CBC, T4F, ESR #### [address] Comprehensive Metabolic Pane nory 07-28-2024 Albumin [Mass/Vol] 3.7 g/dL Normal 3.5-5.7 [facility] Comment on above: Performed By: #### V [id number], CMP, TSH3, LIPID, CBC, T4F, ESR #### [address] Albumin/Globulin [Mass ratio] 1.9 {ratio} Normal [facility] Comment on above: Performed By: #### V [id number], CMP, TSH3, LIPID, CBC, T4F, ESR #### [address] ALP [Catalytic activity/Vol] 62 U/L Normal 34-104 [facility] Comment on above: Performed By: #### V [id number], CMP, TSH3, LIPID, CBC, T4F, ESR #### [address] ALT [Catalytic activity/Vol] 21 U/L Normal 7-52 [facility] Comment on above: Performed By: #### V [id number], CMP, TSH3, LIPID, CBC, T4F, ESR #### [address] Anion gap [Moles/Vol] 8.2 mmol/L Normal 6.0-15.0 [facility] Comment on above: Performed By: #### V [id number], CMP, TSH3, LIPID, CBC, T4F, ESR #### [address] AST [Catalytic activity/Vol] 19 U/L Normal 13-39 [facility] Comment on above: Performed By: #### V [id number], CMP, TSH3, LIPID, CBC, T4F, ESR #### [address] Bilirubin [Mass/Vol] 0.7 mg/dL Normal 0.3-1.0 [facility] Comment on above: Performed By: #### V [id number], CMP, TSH3, LIPID, CBC, T4F, ESR #### [address] Calcium [Mass/Vol] 9.7 mg/dL Normal 8.6-10.3 [facility] Comment on above: Performed By: #### V [id number], CMP, TSH3, LIPID, CBC, T4F, ESR #### [address] Chloride [Moles/Vol] 107 mmol/L Normal 98-107 [facility] Comment on above: Performed By: #### V [id number], CMP, TSH3, LIPID, CBC, T4F, ESR #### [address] CO2 [Moles/Vol] 31.5 mmol/L High 21.0-31.0 [facility] Comment on above: Performed By: #### V [id number], CMP, TSH3, LIPID, CBC, T4F, ESR #### [address] Creatinine [Mass/Vol] 0.67 mg/dL Normal 0.60-1.20 [facility] Comment on above: Performed By: #### V [id number], CMP, TSH3, LIPID, CBC, T4F, ESR #### [address] GFR/1.73 sq M.predicted MDRD (S/P/Bld) [Vol rate/Area] mL/min/{1.73_m2} Normal [facility] Comment on above: Performed By: #### V [id number], CMP, TSH3, LIPID, CBC, T4F, ESR #### [address] Globulin (S) [Mass/Vol] 1.9 g/dL Normal [facility] Comment on above: Performed By: #### V [id number], CMP, TSH3, LIPID, CBC, T4F, ESR #### [address] Glucose [Mass/Vol] 89 mg/dL Normal 70-100 [facility] Comment on above: Result Comment: [facility] Glucose Reference Range is dependent on time and content of last meal. Glucose of more than 200 mg/dL in a nonstressed, ambulatory subject supports the diagnosis of Diabetes Mellitus. ADA recommended reference range Performed By: #### V [id number], CMP, TSH3, LIPID, CBC, T4F, ESR #### [address] Potassium [Moles/Vol] 3.7 mmol/L Normal 3.5-5.1 [facility] Comment on above: Performed By: #### V [id number], CMP, TSH3, LIPID, CBC, T4F, ESR #### [address] Protein [Mass/Vol] 5.6 g/dL Low 6.4-8.9 [facility] Comment on above: Performed By: #### V [id number], CMP, TSH3, LIPID, CBC, T4F, ESR #### [address] Sodium [Moles/Vol] 143 mmol/L Normal 136-145 [facility] Comment on above: Performed By: #### V [id number], CMP, TSH3, LIPID, CBC, T4F, ESR #### [address] Urea nitrogen [Mass/Vol] 19 mg/dL Normal 7-25 [facility] Comment on above: Performed By: #### V [id number], CMP, TSH3, LIPID, CBC, T4F, ESR #### [address] Erythrocyte Sedimentation Ra amy 07-28-2024 ESR (Bld) [Velocity] 9 mm/h Normal 0-29 [facility] Comment on above: Result Comment: PERF ORMED BY: [place] [address] PATHOLOGIST HOT BOX OPERATOR JASIEL HURTADO M.D. Performed By: #### V [id number], CMP, TSH3, LIPID, CBC, T4F, ESR #### [address] Free T4 (Free Thyroxine)on 0 07-28-2024 Free T4 [Mass/Vol] 0.74 ng/dL Normal 0.61-1.12 [facility] Comment on above: Performed By: #### L IPID, TSH3, CMP, CBC #### [address] Lipid Panelon 07-28-2024 Cholesterol [Mass/Vol] 228 mg/dL High 140-200 [facility] Comment on above: Result Comment: Chol less than 200 mg/dl low risk Chol 201-239 mg/dl borderline risk Chol 240 mg/dl and greater high risk Performed By: #### V [id number], CMP, TSH3, LIPID, CBC, T4F, ESR #### [address] Cholesterol in HDL [Mass/Vol] 96 mg/dL High 23-92 [facility] Comment on above: Result Comment: HDL CHOL ATP-III CLASSIFICATION Cardiovascular Risk HDL > or equal to 60 mg/dL LOW HDL < 40 mg/dL HIGH Performed By: #### V [id number], CMP, TSH3, LIPID, CBC, T4F, ESR #### [facility] [address] [place] [address] [facility] Cholesterol.total/Ch olesterol in HDL [Mass ratio] 2.4 {ratio} Normal <5.0 [facility] Comment on above: Performed By: #### V [id number], CMP, TSH3, LIPID, CBC, T4F, ESR #### [facility] [address] LDL Cholesterol,Calculat ed 121 mg/dL High 0-100 [facility] Comment on above: Result Comment: LDL ATP III CLASSIFICATION LDL less than 100 mg/dL Optimal LDL 100-129 mg/dL Near or above optimal LDL 130-159 mg/dL Borderline high LDL 160-189 mg/dL High LDL greater than 189 mg/dL Very high Performed By: #### V [id number], CMP, TSH3, LIPID, CBC, T4F, ESR #### [facility] [address] [place] [id number] [facility] Triglyceride w/Reflex 57 mg/dL Normal 0-149 [facility] Comment on above: Result Comment: TRIG ATP III CLASSIFICATION TRIG less than 150 mg/dL Normal TRIG 150-199 mg/dL Borderline high TRIG 200-500 mg/dL High TRIG greater than 500 mg/dL Very high Standard traceable to the Center for Disease Conrtrol and Prevention (CDC) test method. Performed By: #### V [id number], CMP, TSH3, LIPID, CBC, T4F, ESR #### [facility] [address] [place] [id number] [facility] VLDL CHOLESTEROL 11 mg/dL Normal [facility] Comment on above: Performed By: #### V [id number], CMP, TSH3, LIPID, CBC, T4F, ESR #### [facility] [address] [place] [id number] [facility] Thyroid Stimulating Hormoneo n 07-28-2024 TSH Qn 6.38 m[IU]/L High 0.45-5.33 [facility] Comment on above: Performed By: #### L IPID, TSH3, CMP, CBC #### [address] Vitamin D 25 Hydroxy Totalon 07-28-2024 Vitamin D 25 Hydroxy Total 28.4 ng/mL Low 30-100 [facility] Comment on above: Result Comment: ANJU MIN D STATUS 25(OH)VITAMIN D RANGE (ng/mL) Deficient <20 Insufficient 20 to <30 Sufficient 30 to 100 Reference: Yolanda MF,Nathan NC, Keshawn FRANCO, et al. Evaluation,treatment, and prevention of vitamin D deficiency; an Endocrine Society clinical practice guideline. JCEM. 2010; 96(7):1911-30. PERFORMED BY: [place] [address] PATHOLOGIST HOT BOX OPERATOR JASIEL HURTADO M.D. Performed By: #### L IPID, TSH3, CMP, CBC #### [address] XR scapula LT*on 05-25-2024 XR scapula LT* [facility] [place] [address] [place] [address] XRay Report Signed Patient: Lavonne Villatoro MR#: [id number] : 1935 Acct:[id number] Age/Sex: 88 / F ADM Date: 05/25/24 Loc: XD Room: Type: [facility] Attending Dr: Suhas Garrett DO Copies to: Suhas Garrett DO Ordering Provider: Suhas Garrett DO Date of Service: 05/25/24 XR/XR shoulder LT min 2V*: M25.519 - Pain in unspecified shoulder ([id number]) XR/XR scapula LT*: M25.519 - Pain in [...] Casandra Gómez M.D.05/25/2024 4:45 PM Dictation Location: [place] [address] Transcribed By: [facility] 05/25/24 1645 Dictated By: Casandra Gómez MD 05/25/241641 Signed By: 05/25/24 1645 Normal [facility] TRANSTHORACIC ECHO (TTE) [facility] 02-11-2024 TRANSTHORACIC ECHO (TTE) COMPLETE [address], [address] [place] [address] TRANSTHORACIC ECHOCARDIOGRAM REPORT Patient Name: LAVONNE Bahena Physician: [id number] Wolf MD, [facility] Study Date: 02/11/2024 Ordering Provider: [id number] SHY WOLF MRN/PID: [id number] Fellow: Nurse: Date of /Age: 3 1935 / 88 years Joint Cutter Machine: LILIA Gender: F Additional Staff: Height: 157.48 cm Admit Date: Weight: 69.40 kg Admission Status: BSA / BMI: 1.71 m2 / 27.98 kg/m2 Department Location: [facility] Blood Pressure: 116 /76 mmHg Study Type: TRANSTHORACIC ECHO (TTE) COMPLETE Diagnosis/ICD: Nonrheumatic aortic (valve) stenosis-I35.0 Indication: HTN, Hyperlipidemia, 3/6 Systolic Murmur, Hypothryoid, Overweight CPT Codes: Echo Complete w Full Doppler-[id number] Study Detail: The following Echo studies were [...] mmHg PIEDV: 2.23 m/s PADP: 22.9 mmHg [id number] Shy Wolf MD, [facility] Electronical (more content not included)... [facility] US carotid doppler BIon 05-0 US carotid doppler BI [facility] [place] [address] [place] [address] Ultrasound Report Signed Patient: Lavonne Villatoro MR#: [id number] : 1935 Acct:[id number] Age/Sex: 88 / F ADM Date: 10/14/23 Loc: Room: Type: [facility] Attending Dr: Suhas Garrett DO Ordering [...] Hola Wynn M.D.10/15/2023 11:47 AM Dictation Location: [place] [address] Tech: Jackie Aguillon Transcribed By: KIRILL 10/15/23 1147 Dictated By: Hola Wynn MD 10/15/23 1145 Signed By: 10/15/23 1147 Normal [facility] Complete Blood Count Auto Di ffon 09-03-2023 Basophils (Bld) [#/Vol] 0.0 10*3/uL Normal 0.0-0.2 [facility] Comment on above: Result Comment: PERF ORMED BY: [place] [address] PATHOLOGIST HOT BOX OPERATOR JODY SOLANO M.D. Performed By: #### L IPID, TSH3, CMP, CBC #### [facility] [address] [place] [address] [place] Basophils/100 WBC (Bld) 0.7 % Normal . [facility] Comment on above: Performed By: #### L IPID, TSH3, CMP, CBC #### [facility] [address] [place] [address] [place] Eosinophils (Bld) [#/Vol] 0.1 10*3/uL Normal 0.0-0.45 [facility] Comment on above: Performed By: #### L IPID, TSH3, CMP, CBC #### [place] [address] [place] Eosinophils/100 WBC (Bld) 1.6 % Normal . [facility] Comment on above: Performed By: #### L IPID, TSH3, CMP, CBC #### [address] Erythrocyte distribution width (RBC) [Ratio] 14.8 % Normal 11.9-15.3 [facility] Comment on above: Performed By: #### L IPID, TSH3, CMP, CBC #### [address] Hematocrit (Bld) [Volume fraction] 39.9 % Normal 34.0-46.4 [facility] Comment on above: Performed By: #### L IPID, TSH3, CMP, CBC #### [address] Hemoglobin (Bld) [Mass/Vol] 13.2 g/dL Normal 11.8-15.4 [facility] Comment on above: Performed By: #### L IPID, TSH3, CMP, CBC #### [address] Lymphocytes (Bld) [#/Vol] 2.6 10*3/uL Normal 1.00-4.8 [facility] Comment on above: Performed By: #### L IPID, TSH3, CMP, CBC #### [address] Lymphocytes/100 WBC (Bld) 43.5 % Normal . [facility] Comment on above: Performed By: #### L IPID, TSH3, CMP, CBC #### [address] MCH (RBC) [Entitic mass] 33.2 pg Normal 24.7-34.3 [facility] Comment on above: Performed By: #### L IPID, TSH3, CMP, CBC #### [address] MCV (RBC) [Entitic vol] 100.5 fL High 80-100 [facility] Comment on above: Performed By: #### L IPID, TSH3, CMP, CBC #### [address] Mean Corpuscular HGB Conc 33.0 g/dL Normal 32.0-35.0 [facility] Comment on above: Performed By: #### L IPID, TSH3, CMP, CBC #### [address] Monocytes (Bld) [#/Vol] 0.6 10*3/uL Normal 0.0-0.8 [facility] Comment on above: Performed By: #### L IPID, TSH3, CMP, CBC #### [address] Monocytes/100 WBC (Bld) 9.7 % Normal . [facility] Comment on above: Performed By: #### L IPID, TSH3, CMP, CBC #### [address] Neutrophils (Bld) [#/Vol] 2.7 10*3/uL Normal 1.8-7.7 [facility] Comment on above: Performed By: #### L IPID, TSH3, CMP, CBC #### [place] [address] [place] Neutrophils/100 WBC (Bld) 44.5 % Normal . [facility] Comment on above: Performed By: #### L IPID, TSH3, CMP, CBC #### [address] NRBC% 0.2 /100{WBC} Normal 0-0.5 [facility] Comment on above: Performed By: #### L IPID, TSH3, CMP, CBC #### [place] [address] [place] Platelet mean volume (Bld) [Entitic vol] 9.2 fL Normal 6.3-10.7 [facility] Comment on above: Performed By: #### L IPID, TSH3, CMP, CBC #### [place] [address] [place] Platelets (Bld) [#/Vol] 229 10*3/uL Normal 150-450 [facility] Comment on above: Performed By: #### L IPID, TSH3, CMP, CBC #### [address] RBC (Bld) [#/Vol] 3.98 10*6/uL Normal 3.60-5.00 [facility] Comment on above: Performed By: #### L IPID, TSH3, CMP, CBC #### [address] WBC (Bld) [#/Vol] 6.0 10*3/uL Normal 3.8-11.6 [facility] Comment on above: Performed By: #### L IPID, TSH3, CMP, CBC #### [address] Comprehensive Metabolic Pane nory 09-03-2023 Albumin [Mass/Vol] 3.8 g/dL Normal 3.5-5.7 [facility] Comment on above: Performed By: #### L IPID, TSH3, CMP, CBC #### [address] Albumin/Globulin [Mass ratio] 1.7 {ratio} Normal [facility] Comment on above: Performed By: #### L IPID, TSH3, CMP, CBC #### [address] ALP [Catalytic activity/Vol] 72 U/L Normal 34-104 [facility] Comment on above: Performed By: #### L IPID, TSH3, CMP, CBC #### [address] ALT [Catalytic activity/Vol] 43 U/L Normal 7-52 [facility] Comment on above: Performed By: #### L IPID, TSH3, CMP, CBC #### [address] Anion gap [Moles/Vol] 8.9 mmol/L Normal 6.0-15.0 [facility] Comment on above: Performed By: #### L IPID, TSH3, CMP, CBC #### [address] AST [Catalytic activity/Vol] 23 U/L Normal 13-39 [facility] Comment on above: Performed By: #### L IPID, TSH3, CMP, CBC #### [address] Bilirubin [Mass/Vol] 1.2 mg/dL High 0.3-1.0 [facility] Comment on above: Performed By: #### L IPID, TSH3, CMP, CBC #### [address] Calcium [Mass/Vol] 9.5 mg/dL Normal 8.6-10.3 [facility] Comment on above: Performed By: #### L IPID, TSH3, CMP, CBC #### [place] [address] [place] Chloride [Moles/Vol] 107 mmol/L Normal 98-107 [facility] Comment on above: Performed By: #### L IPID, TSH3, CMP, CBC #### [place] [address] [place] CO2 [Moles/Vol] 30.0 mmol/L Normal 21.0-31.0 [facility] Comment on above: Performed By: #### L IPID, TSH3, CMP, CBC #### [place] [address] [place] Creatinine [Mass/Vol] 0.76 mg/dL Normal 0.60-1.20 [facility] Comment on above: Performed By: #### L IPID, TSH3, CMP, CBC #### [place] [address] [place] GFR/1.73 sq M.predicted MDRD (S/P/Bld) [Vol rate/Area] mL/min/{1.73_m2} Normal [facility] Comment on above: Performed By: #### L IPID, TSH3, CMP, CBC #### [address] [place] [address] [place] Globulin (S) [Mass/Vol] 2.2 g/dL Normal [facility] Comment on above: Performed By: #### L IPID, TSH3, CMP, CBC #### [facility] [address] Glucose [Mass/Vol] 79 mg/dL Normal 70-100 [facility] Comment on above: Result Comment: [place] Glucose Reference Range is dependent on time and content of last meal. Glucose of more than 200 mg/dL in a nonstressed, ambulatory subject supports the diagnosis of Diabetes Mellitus. ADA recommended reference range Performed By: #### L IPID, TSH3, CMP, CBC #### [address] Potassium [Moles/Vol] 3.9 mmol/L Normal 3.5-5.1 [facility] Comment on above: Performed By: #### L IPID, TSH3, CMP, CBC #### [address] Protein [Mass/Vol] 6.0 g/dL Low 6.4-8.9 [facility] Comment on above: Performed By: #### L IPID, TSH3, CMP, CBC #### [address] Sodium [Moles/Vol] 142 mmol/L Normal 136-145 [facility] Comment on above: Performed By: #### L IPID, TSH3, CMP, CBC #### [place] [address] [place] Urea nitrogen [Mass/Vol] 22 mg/dL Normal 7-25 [facility] Comment on above: Performed By: #### L IPID, TSH3, CMP, CBC #### [address] Lipid Panelon 09-03-2023 Cholesterol [Mass/Vol] 243 mg/dL High 140-200 [facility] Comment on above: Result Comment: Chol less than 200 mg/dl low risk Chol 201-239 mg/dl borderline risk Chol 240 mg/dl and greater high risk Performed By: #### L IPID, TSH3, CMP, CBC #### [facility] [address] Cholesterol in HDL [Mass/Vol] 98 mg/dL High 23-92 [facility] Comment on above: Result Comment: HDL CHOL ATP-III CLASSIFICATION Cardiovascular Risk HDL > or equal to 60 mg/dL LOW HDL < 40 mg/dL HIGH Performed By: #### L IPID, TSH3, CMP, CBC #### [facility] [address] Cholesterol.total/Ch olesterol in HDL [Mass ratio] 2.5 {ratio} Normal <5.0 [facility] Comment on above: Performed By: #### L IPID, TSH3, CMP, CBC #### [address] LDL Cholesterol,Calculat ed 121 mg/dL High 0-100 [facility] Comment on above: Result Comment: LDL ATP III CLASSIFICATION LDL less than 100 mg/dL Optimal LDL 100-129 mg/dL Near or above optimal LDL 130-159 mg/dL Borderline high LDL 160-189 mg/dL High LDL greater than 189 mg/dL Very high Performed By: #### L IPID, TSH3, CMP, CBC #### [address] Triglyceride w/Reflex 122 mg/dL Normal 0-149 [facility] Comment on above: Result Comment: TRIG ATP III CLASSIFICATION TRIG less than 150 mg/dL Normal TRIG 150-199 mg/dL Borderline high TRIG 200-500 mg/dL High TRIG greater than 500 mg/dL Very high Standard traceable to the Center for Disease Conrtrol and Prevention (CDC) test method. Performed By: #### L IPID, TSH3, CMP, CBC #### [address] VLDL CHOLESTEROL 24 mg/dL Normal [facility] Comment on above: Performed By: #### L IPID, TSH3, CMP, CBC #### [place] [address] [place] Thyroid Stimulating Hormoneo n 09-03-2023 TSH Qn 4.01 m[IU]/L Normal 0.45-5.33 [facility] Comment on above: Result Comment: PERF ORMED BY: [facility] [address] [place] [address] PATHOLOGIST HOT BOX OPERATOR JODY SOLANO M.D. Performed By: #### L IPID, TSH3, CMP, CBC #### [facility] [address] [place] [id number] [facility] Complete Blood Count Auto Di ffon 07-08-2023 Basophils (Bld) [#/Vol] 0.309126329 10*3/uL Normal 0.0-0.2 10*3/uL [facility] Other Basophils/100 WBC (Bld) 0.900 % . % [facility] Other Eosinophils (Bld) [#/Vol] 0.004840847 10*3/uL Normal 0.0-0.45 10*3/uL [facility] Other Eosinophils/100 WBC (Bld) 1.100 % . % [facility] Other Erythrocyte distribution width (RBC) [Ratio] 14.000 % Normal 11.9-15.3 % [facility] Other Hematocrit (Bld) [Volume fraction] 37.700 % Normal 34.0-46.4 % [facility] Other Hemoglobin (Bld) [Mass/Vol] 12.441004 g/dL Normal 11.8-15.4 g/dL [facility] Other Lymphocytes (Bld) [#/Vol] 2.007435852 10*3/uL Normal 1.00-4.8 10*3/uL [facility] Other Lymphocytes/100 WBC (Bld) 35.100 % . % [facility] Other MCH (RBC) [Entitic mass] 33.3000 pg Normal 24.7-34.3 pg [facility] Other MCV (RBC) [Entitic vol] 99.7000 fL Normal 80-100 fL [facility] Other Monocytes (Bld) [#/Vol] 0.797426584 10*3/uL Normal 0.0-0.8 10*3/uL [facility] Other Monocytes/100 WBC (Bld) 10.000 % . % [facility] Other Neutrophils (Bld) [#/Vol] 3.702226079 10*3/uL Normal 1.8-7.7 10*3/uL [facility] Other Neutrophils/100 WBC (Bld) 52.900 % . % [facility] Other Platelet mean volume (Bld) [Entitic vol] 9.9000 fL Normal 6.3-10.7 fL [facility] Other Platelets (Bld) [#/Vol] 224 10*3/uL Normal 150-450 10*3/uL [facility] Other RBC (Bld) [#/Vol] 3.78 10*6/uL Normal 3.60-5.00 [facility] Other WBC (Bld) [#/Vol] 7.122995948 10*3/uL Normal 3.8 -11.6 10*3/uL [facility] Other Complete Blood Count Auto Diff 7.1 10*3/uL Normal 3.8-11.6 10*3/uL [facility] Other Complete Blood Count Auto Diff 33.4 g/dL Normal 32.0-35.0 g/dL [facility] Other Complete Blood Count Auto Diff 0.1 /100{WBC} Normal 0-0.5 /100{WBC} [facility] Other Comprehensive Metabolic Pane nory 07-08-2023 Albumin [Mass/Vol] 3.521846 g/dL Normal 3.5-5.7 g/dL N [facility] Other Albumin/Globulin [Mass ratio] 1.7 {ratio} [place] [facility] Other ALP [Catalytic activity/Vol] 140 U/L High 34-104 U/L [place] [facility] Other ALT [Catalytic activity/Vol] 71 U/L High 7-52 U/L [place] [facility] Other AST [Catalytic activity/Vol] 20 U/L Normal 13-39 U/L [facility] Other Bilirubin [Mass/Vol] 0.5532252 mg/dL Normal 0.3-1.0 mg /dL [place] [facility] Other Calcium [Mass/Vol] 9.7686242 mg/dL Normal 8.6-10 .3 mg/dL [facility] Other Chloride [Moles/Vol] 107 mmol/L Normal 98-107 mmol/L N [facility] Other CO2 [Moles/Vol] 30.58991488 mmol/L Normal 21.0-3 1.0 mmol/L [facility] Other Creatinine [Mass/Vol] 0.19002366 mg/dL Normal 0.60-1.20 mg/dL [facility] Other GFR/1.73 sq M.predicted MDRD (S/P/Bld) [Vol rate/Area] mL/min/{1.73_m2} [facility] Other Glucose [Mass/Vol] 89 mg/dL Normal 70-100 mg/dL [place] [facility] Other Potassium [Moles/Vol] 3.66852687 mmol/L Normal 3.5-5.1 mmol/L [facility] Other Protein [Mass/Vol] 6.631739 g/dL Low 6.4-8.9 g/dL N [facility] Other Sodium [Moles/Vol] 143 mmol/L Normal 136-145 mmol/L [facility] Other Urea nitrogen [Mass/Vol] 21 mg/dL Normal 7-25 mg/dL [facility] Other Comprehensive Metabolic Panel 2.2 g/dL [facility] Other Free T4 (Free Thyroxine)on 0 07-08-2023 Free T4 [Mass/Vol] 1.45579639 ng/dL High 0.61- 1.12 ng/dL [facility] Other Thyroid Antibodies TPO+Tg Ab on 07-08-2023 Thyroid Antibodies TPO+Tg Ab 11 0-34 [facility] Other Thyroid Antibodies TPO+Tg Ab <1.0 0.0-0.9 [facility] Other Thyroid Stimulating Hormoneo n 07-08-2023 TSH Qn 2.08737137753 m[IU]/L Normal 0.45-5 .33 u[iU]/mL [facility] Other Echocardiogramon 02-26-[address], [place] [address] TRANSTHORACIC ECHOCARDIOGRAM REPORT Patient Name: LAVONNE Bahena Physician: [id number] Shy Wolf [facility] Study Date: 02/26/2023 Referring SHY WOLF Physician: MRN/PID: [id number] PCP: Suhas Garrett MD Accession/Order#: [id number] Department [facility] Location: Date of : 1935 Fellow: Gender: F Nurse: Admit Date: Joint Cutter Machine: Sheridan Lemus RDCS T Height: 157.48 cm CC Report to: Weight: 67.13 kg Study Type: Echocardiogram BSA: 1.68 m2 Blood Pressure: 122 /76 mmHg Diagnosis/ICD: I35.0-Nonrheumatic aortic (valve) stenosis; R01.1-Cardiac murmur, unspecified Indication: HTN, Hyperlipidemia, Overweight, Hypothyroid, Polymyalgia Rheumatica Procedure/CPT: Echo Complete w Full Doppler-[id number] Study Detail: The following Echo studies were [...] mmHg PIEDV: 2.50 m/s PADP: 28.0 mmHg [id number] Shy Wolf MD, [facility] Electronically signed on 03/01/2023 at 2:16:46 PM Final Normal [facility] Office Visit (Cardiology)on 12-24-2022 Follow-up visit Diagnoses/Problems Assessed Aortic stenosis (424.1) (I35.0) Murmur, cardiac (785.2) (R01.1) Essential hypertension (401.9) (I10) Hyperlipidemia (272.4) (E78.5) Overweight with body mass index (BMI) of 27 to 27.9 in adult (278.02,V85.23) (E66.3,Z68.27) Never smoker Hypothyroidism (244.9) (E03.9) PMR (polymyalgia rheumatica) (725) (M35.3) Orders Aortic stenosis, Murmur, cardiac Echocardiogram; Status:Hold For - Scheduling,Retrospect bola Authorization; Requested for:[id number]; Essential hypertension, Hyperlipidemia Changed: From Aspirin EC 81 MG TBEC TAKE 1 TABLET To Aspirin 81 MG Oral Tablet Delayed Release TAKE 1 TABLET DAILY Overweight with body mass index (BMI) of 27 to 27.9 in adult Healthy Weight Tips; Status:Complete - Retrospective Authorization; Done: [id number] Some eating tips that can help you lose weight.; Status:Complete - Retrospective Authorization; Done: [id number] SocHx: Never smoker Tobacco Use Screening; Status:Complete; Done: [id number] Patient Instructions Please bring all medicines, vitamins, [...] Multi Vitamin Oral TabletTAKE 1 TABLET DAILY. [place]-3 Fish Oil 1000 MG Oral CapsuleTAKE 1 [...] negative for complaint. Vitals Vital Signs Recorded: [id number] 11:32AM Heart Rate68, R Radial Jnmujevt054, RUE, Sitting Bvanxwmgo27, RUE, Sitting Height5 ft 2 in Tjmlmx470 lb BMI Jogynbbqgo06.07 kg/m2 BSA Calculated1.68 Tobacco Useb) No PHQ-2 [...] distress a (more content not included)... Normal [employer] Tobacco Screening.on 023 Adult depression screening assessment No [facility] 250 DO Work Phone: Fall risk assessment a) No falls within the last year [facility] 250 DO Work Phone: Tobacco use status CPHS b) No [facility] 250 DO Work Phone: Complete Blood Count Auto Di ffon 02-22-2022 Basophils (Bld) [#/Vol] 0.615341020 10*3/uL Normal 0.0-0.2 10*3/uL [facility] Other Basophils/100 WBC (Bld) 0.700 % . % [facility] Other Eosinophils (Bld) [#/Vol] 0.980432211 10*3/uL Normal 0.0-0.45 10*3/uL [facility] Other Eosinophils/100 WBC (Bld) 0.700 % . % [facility] Other Erythrocyte distribution width (RBC) [Ratio] 13.500 % Normal 11.9-15.3 % [facility] Other Hematocrit (Bld) [Volume fraction] 38.400 % Normal 34.0-46.4 % [facility] Other Hemoglobin (Bld) [Mass/Vol] 12.265782 g/dL Normal 11.8-15.4 g/dL [facility] Other Lymphocytes (Bld) [#/Vol] 0.977335535 10*3/uL Low 1.00-4.8 10*3/uL [facility] Other Lymphocytes/100 WBC (Bld) 12.600 % . % [facility] Other MCH (RBC) [Entitic mass] 33.7000 pg Normal 24.7-34.3 pg [facility] Other MCV (RBC) [Entitic vol] 100.4000 fL High 80-100 fL [facility] Other Monocytes (Bld) [#/Vol] 0.465473690 10*3/uL Normal 0.0-0.8 10*3/uL [facility] Other Monocytes/100 WBC (Bld) 6.800 % . % [facility] Other Neutrophils (Bld) [#/Vol] 5.374376450 10*3/uL Normal 1.8-7.7 10*3/uL [facility] Other Neutrophils/100 WBC (Bld) 79.200 % . % [facility] Other Platelet mean volume (Bld) [Entitic vol] 9.4000 fL Normal 6.3-10.7 fL [facility] Other Platelets (Bld) [#/Vol] 223 10*3/uL Normal 150-450 10*3/uL [facility] Other RBC (Bld) [#/Vol] 3.4689739777 10*6/uL Normal 3. 60-5.00 10*6/uL [facility] Other WBC (Bld) [#/Vol] 6.849875372 10*3/uL Normal 3.8 -11.6 10*3/uL [facility] Other Complete Blood Count Auto Diff 6.6 10*3/uL Normal 4.5-11.0 10*3/uL [facility] Other Complete Blood Count Auto Diff 33.6 g/dL Normal 32.0-35.0 g/dL [facility] Other Complete Blood Count Auto Diff 0.1 % Normal 0-0.5 % [facility] Other Erythrocyte Sedimentation Ra amy 02-22-2022 ESR (Bld) [Velocity] 28 mm/h Normal 0-29 [facility] Other [facility] LAB Carotid Artery Dupl ex Ultrasoundon 02-21-2022 US.doppler Carotid arteries [place] [address] [place] Work Phone: COVID Quick Testingon 2021 Result Positive [place] [facility] Other Falls Screening (Age 18+)on 12-26-2021 Fall risk assessment a) No falls within the last year [facility] [facility] DO Work Phone: Office [...] Multi Vitamin Oral TabletTAKE 1 TABLET DAILY. [place] 3 500 [place] 1 CAPSULE Daily predniSONE 5 MG Oral Sajwfg4HY 7.5MG BY MOUTH ONE DAILY ALTERNATING EVERY OTHER DAY Allergies Medication amoxicillin Hives;; Recorded By: Kayla Orr; 10/17/2021 10:50:34 AM Dilantin CAPS Rash; Recorded By: Kayla Orr; 10/17/2021 10:50:34 AM Fosamax eye pain; Recorded By: Kayla Orr; 10/17/2021 10:50:34 AM Depakote ER TB24 Recorded By: Kayla Orr; 10/17/2021 10:50:34 AM Vitals Vital Signs Recorded: [id number] 11:04AMRecorded: 10Jrb7822 11:00AM Heart Rate56, R Fxnfdi15, R Radial Qswdhnos131, LUE, Nlvzjvk285, RUE Ntkyqrexe35, LUE, Byiucew73, RUE Height5 ft 2 in5 ft 2 in Ipqlga513 lb 143 lb BMI Jbrnwesqlv85.16 kg/m226.16 kg/m2 BSA Calculated1.661.66 Falls Screening (Age 18+)a) No falls within the last year Signatures Electronically signed by : Shy Wolf MD; Dec 26 2021 4:02PM EST (Author) Normal [employer] Tobacco Screening.on 022 Adult depression screening assessment No [facility] Work Phone: Fall risk assessment a) No falls within the last year [facility] Work Phone: Tobacco use status CPHS b) No [facility] Work Phone: Vital Signs Date Time Vital Sign Value 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 Facility 01-14-2025 11:07-0400 Body height 157.5 cm Shy Wolf MD Work Phone: [facility] 01-14-2025 11:07-0400 Body mass index (BMI) [Ratio] 27.44 kg/m2 Shy Wolf MD Work Phone: [facility] 01-14-2025 11:07-0400 Body weight 68.04 kg Shy Wolf MD Work Phone: [facility] 01-14-2025 11:07-0400 Diastolic blood pressure 78 mm[Hg] Shy Wolf MD Work Phone: [facility] 01-14-2025 11:07-0400 Heart rate 60 /min Shy Wolf MD Work Phone: [facility] 01-14-2025 11:07-0400 Systolic blood pressure 168 mm[Hg] Shy Wolf MD Work Phone: [facility] 12-21-2024 12:30-0400 Body height 157.[address] 12-21-2024 12:30-0400 Body mass index (BMI) [Ratio] 26.52 kg/m2 [address] 12-21-2024 12:30-0400 Body weight 65.[address] 12-21-2024 12:30-0400 Diastolic blood pressure 68 mm[Hg] [address] 12-21-2024 12:30-0400 Systolic blood pressure 146 mm[Hg] [address] 12-08-2024 13:56-0400 Diastolic blood pressure 70 mm[Hg] Reuben Burns [employer]JUSTER Work Phone: [facility] 12-08-2024 13:56-0400 Systolic blood pressure 142 mm[Hg] Reuben Burns [employer] GUARD[employer]CLERICAL ADJUSTER Work Phone: [facility] 12-07-2024 14:59-0400 Body height 157.5 cm Reuben Burns [employer]ARK GUARD[employer]CLERICAL ADJUSTER Work Phone: [facility] 12-07-2024 14:59-0400 Body mass index (BMI) [Ratio] 26.45 kg/m2 Reuben Burns [employer]ARK GUARD[employer]CLERICAL ADJUSTER Work Phone: [facility] 12-07-2024 14:59-0400 Body weight 65.59 kg Reubenmayo Burns [employer]ARK GUARD[employer]CLERICAL ADJUSTER Work Phone: [facility] 12-07-2024 14:59-0400 Heart rate 62 /min Reubenmayo Burns [employer]ARK GUARD[employer]CLERICAL ADJUSTER Work Phone: [facility] 04-16-2024 13:16-0500 Body height 157.5 cm Shy Wolf MD Work Phone: [facility] 04-16-2024 13:16-0500 Body mass index (BMI) [Ratio] 26.67 kg/m2 Shy Wolf MD Work Phone: [facility] 04-16-2024 13:16-0500 Body weight 66.13 kg Shy Wolf MD Work Phone: [facility] 04-16-2024 13:16-0500 Diastolic blood pressure 62 mm[Hg] Shy Wolf MD Work Phone: [facility] 04-16-2024 13:16-0500 Heart rate 62 /min Shy Wolf MD Work Phone: [facility] 04-16-2024 13:16-0500 Systolic blood pressure 120 mm[Hg] Shy Wolf MD Work Phone: [facility] 02-11-2024 12:28-0400 Body height 157.[address] 02-11-2024 12:28-0400 Body mass index (BMI) [Ratio] 27.98 kg/m2 [address] 02-11-2024 12:28-0400 Body weight 69.[address] 02-11-2024 12:28-0400 Diastolic blood pressure 76 mm[Hg] [address] 02-11-2024 12:28-0400 Systolic blood pressure 116 mm[Hg] [address] 07-04-2023 11:15-0500 Body height 157.48 cm Suhas Garrett Other [address] [facility] Other 07-04-2023 11:15-0500 Body mass index (BMI) [Ratio] 28.53 kg/m2 Suhas Garrett Other [address] [facility] Other 07-04-2023 11:15-0500 Body weight 70.76 kg Suhas Garrett Other [address] [facility] Other 07-04-2023 11:15-0500 Diastolic blood pressure 84 mm[Hg] Suhas Garrett Other [address] [facility] Other 07-04-2023 11:15-0500 Respiratory rate 20 /min Suhas Garrett Other [address] [facility] Other 07-04-2023 11:15-0500 SaO2% (BldA) [Mass fraction] 99 % Suhas Garrett Other [facility] Other 07-04-2023 11:15-0500 Systolic blood pressure 150 mm[Hg] Suhas Garrett Other [facility] Other 06-19-2023 11:09-0500 Body height 157.5 cm Shy Wolf MD Work Phone: [facility] 06-19-2023 11:09-0500 Body mass index (BMI) [Ratio] 27.98 kg/m2 Shy Wolf MD Work Phone: [facility] 06-19-2023 11:09-0500 Body weight 69.4 kg Shy Wolf MD Work Phone: [facility] 06-19-2023 11:09-0500 Diastolic blood pressure 76 mm[Hg] Shy Wolf MD Work Phone: [facility] 06-19-2023 11:09-0500 Heart rate 60 /min Shy Wolf MD Work Phone: [facility] 06-19-2023 11:09-0500 Systolic blood pressure 120 mm[Hg] Shy Wolf MD Work Phone: [facility] 05-30-2023 11:00-0500 Body height 157.48 cm Suhas Garrett Other [facility] Other 05-30-2023 11:00-0500 Body mass index (BMI) [Ratio] 27.8 kg/m2 Suhas Garrett Other [facility] Other 05-30-2023 11:00-0500 Body weight 68.95 kg Suhas Garrett Other [facility] Other 05-30-2023 11:00-0500 Diastolic blood pressure 80 mm[Hg] Suhas Ugo Other [facility] Other 05-30-2023 11:00-0500 Respiratory rate 18 /min Suhas Ugo Other [facility] Other 05-30-2023 11:00-0500 SaO2% (BldA) [Mass fraction] 96 % Suhas Garrett Other [facility] Other 05-30-2023 11:00-0500 Systolic blood pressure 122 mm[Hg] Suhas Garrett Other [facility] Other 02-28-2023 10:30-0400 Body height 157.48 cm Suhas Ugo Other [facility] Other 02-28-2023 10:30-0400 Body mass index (BMI) [Ratio] 27.98 kg/m2 Suhas Ugo Other [facility] Other 02-28-2023 10:30-0400 Body weight 69.4 kg Suhas Garrett Other [facility] Other 02-28-2023 10:30-0400 Diastolic blood pressure 76 mm[Hg] Suhas Garrett Other [facility] Other 02-28-2023 10:30-0400 Respiratory rate 16 /min Suhas Garrett Other [facility] Other 02-28-2023 10:30-0400 SaO2% (BldA) [Mass fraction] 91 % Suhas Garrett Other [facility] Other 02-28-2023 10:30-0400 Systolic blood pressure 134 mm[Hg] Suhas Garrett Other [facility] Other 12-24-2022 11:32-0400 Body height 157.48 cm Suhas Dalton Ugo Work Phone: [facility] 250 DO Work Phone: 12-24-2022 11:32-0400 Body mass index (BMI) [Ratio] 27.07 kg/m2 Suhas Dalton Gaeladan Work Phone: [facility] 250 DO Work Phone: 12-24-2022 11:32-0400 Body surface area Derived from formula 1.68 m2 Suhas Garrett Work Phone: [facility] 250 DO Work Phone: 12-24-2022 11:32-0400 Body weight 67.13 kg Suhas Dalton Gaeladan Work Phone: [facility] 250 DO Work Phone: 12-24-2022 11:32-0400 Diastolic blood pressure 76 mm[Hg] Suhas Dalton Garrett Work Phone: [facility] 250 DO Work Phone: 12-24-2022 11:32-0400 Heart rate 68 /min Suhas Dalton Garrett Work Phone: [facility] 250 DO Work Phone: 12-24-2022 11:32-0400 Systolic blood pressure 118 mm[Hg] Suhas Mayos Work Phone: [facility] 250 DO Work Phone: 12-06-2022 10:30-0400 Body height 157.48 cm Suhas Garrett Other [facility] Other 12-06-2022 10:30-0400 Body mass index (BMI) [Ratio] 27.98 kg/m2 Suhas Garrett Other [facility] Other 12-06-2022 10:30-0400 Body weight 69.4 kg Suhas Garrett Other [employer] Other 12-06-2022 10:30-0400 Diastolic blood pressure 70 mm[Hg] Suhas Garrett Other [employer] Other 12-06-2022 10:30-0400 Respiratory rate 16 /min Suhas Garrett Other [employer] Other 12-06-2022 10:30-0400 SaO2% (BldA) [Mass fraction] 98 % Suhas Garrett Other [employer] Other 12-06-2022 10:30-0400 Systolic blood pressure 146 mm[Hg] Suhas Garrett Other [employer] Other 09-20-2022 11:45-0400 Body height 157.48 cm Suhas Garrett Other [employer] Other 09-20-2022 11:45-0400 Body mass index (BMI) [Ratio] 26.34 kg/m2 Suhas Garrett Other [employer] Other 09-20-2022 11:45-0400 Body weight 65.32 kg Suhas Garrett Other [employer] Other 09-20-2022 11:45-0400 Diastolic blood pressure 70 mm[Hg] Suhas Mayoadan Other [employer] Other 09-20-2022 11:45-0400 Respiratory rate 16 /min Suhas Mayoadan Other [employer] Other 09-20-2022 11:45-0400 SaO2% (BldA) [Mass fraction] 98 % Suhasraquel Mayoadan Other [employer] Other 09-20-2022 11:45-0400 Systolic blood pressure 130 mm[Hg] Suhas Ugo Other [employer] Other 07-22-2022 11:30-0500 Body height 157.48 cm Suhas Garrett Other [employer] Other 07-22-2022 11:30-0500 Body mass index (BMI) [Ratio] 26.85 kg/m2 Suhas Garrett Other [employer] Other 07-22-2022 11:30-0500 Body weight 66.59 kg Suhas Garrett Other [facility] Other 07-22-2022 11:30-0500 Diastolic blood pressure 70 mm[Hg] Suhas Ugo Other [employer] Other 07-22-2022 11:30-0500 Respiratory rate 16 /min Suhas Ugo Other [employer] Other 07-22-2022 11:30-0500 SaO2% (BldA) [Mass fraction] 98 % Suhas Garrett Other [employer] Other 07-22-2022 11:30-0500 Systolic blood pressure 122 mm[Hg] Suhas Ugo Other [employer] Other 04-17-2022 11:45-0500 Body height 157.48 cm Suhas Ugo Other [employer] Other 04-17-2022 11:45-0500 Body mass index (BMI) [Ratio] 26.88 kg/m2 Suhas Garrett Other [employer] Other 04-17-2022 11:45-0500 Body weight 66.68 kg Suhas Garrett Other [facility] Other 04-17-2022 11:45-0500 Diastolic blood pressure 72 mm[Hg] Suhas Garrett Other [facility] Other 04-17-2022 11:45-0500 Respiratory rate 16 /min Suhas Mayoadan Other [employer] Other 04-17-2022 11:45-0500 SaO2% (BldA) [Mass fraction] 99 % Suhas Garrett Other [employer] Other 04-17-2022 11:45-0500 Systolic blood pressure 138 mm[Hg] Suhas Garrett Other [employer] Other 02-22-2022 10:15-0400 Body height 157.48 cm Suhas Garrett Other [employer] Other 02-22-2022 10:15-0400 Body mass index (BMI) [Ratio] 27.07 kg/m2 Suhas Garrett Other [employer] Other 02-22-2022 10:15-0400 Body weight 67.13 kg Suhas Garrett Other [facility] Other 02-22-2022 10:15-0400 Diastolic blood pressure 70 mm[Hg] Suhas Garrett Other [facility] Other 02-22-2022 10:15-0400 Respiratory rate 16 /min Suhas Garrett Other [facility] Other 02-22-2022 10:15-0400 SaO2% (BldA) [Mass fraction] 97 % Suhas Garrett Other [employer] Other 02-22-2022 10:15-0400 Systolic blood pressure 122 mm[Hg] Suhas Garrett Other [facility] [employer] [facility] Other 02-21-2022 10:45-0400 70 1 Suhas Garrett Work Phone: [address] Work Phone: Comment on above: [id number] 02-14-2022 15:45-0400 Body height 157.48 cm Suhas Garrett Other [employer] Other 02-14-2022 15:45-0400 Body mass index (BMI) [Ratio] 26.7 kg/m2 Suhas Garrett Other [employer] Other 02-14-2022 15:45-0400 Body weight 66.23 kg Suhas Garrett Other [employer] Other 02-14-2022 15:45-0400 Diastolic blood pressure 72 mm[Hg] Suhas Garrett Other [employer] Other 02-14-2022 15:45-0400 Respiratory rate 16 /min Suhas Garrett Other [facility] [employer] Other 02-14-2022 15:45-0400 SaO2% (BldA) [Mass fraction] 96 % Suhas Garrett Other [facility] Other 02-14-2022 15:45-0400 Systolic blood pressure 132 mm[Hg] Suhas Garrett Other [facility] Other 12-26-2021 11:04-0400 Body height 157.48 cm Suhas Garrett Work Phone: [facility] [address] DO Work Phone: 12-26-2021 11:04-0400 Body mass index (BMI) [Ratio] 26.16 kg/m2 Suhas Garrett Work Phone: [facility] [address] DO Work Phone: 12-26-2021 11:04-0400 Body surface area Derived from formula 1.66 m2 Suhas Garrett Work Phone: [facility] [address] DO Work Phone: 12-26-2021 11:04-0400 Body weight 64.86 kg Suhas Garrett Work Phone: [facility] [address] DO Work Phone: 12-26-2021 11:04-0400 Diastolic blood pressure 68 mm[Hg] Suhas Hoffman Ugo Work Phone: [facility] [address] DO Work Phone: 12-26-2021 11:04-0400 Heart rate 56 /min Suhas Dalton Garrett Work Phone: [facility] [address] DO Work Phone: 12-26-2021 11:04-0400 Systolic blood pressure 126 mm[Hg] Suhas Garrett Work Phone: [facility] [address] DO Work Phone: 12-26-2021 11:00-0400 Diastolic blood pressure 70 mm[Hg] Suhas Garrett Work Phone: [facility] [address] DO Work Phone: 12-26-2021 11:00-0400 Systolic blood pressure 130 mm[Hg] Suhas Garrett Work Phone: [facility] [address] DO Work Phone: 12-13-2021 11:39-0400 Diastolic blood pressure 80 mm[Hg] Suhas Garrett Work Phone: [facility] Work Phone: 12-13-2021 11:39-0400 Systolic blood pressure 170 mm[Hg] Suhas Garrett Work Phone: [facility] Work Phone: 12-13-2021 11:22-0400 Diastolic blood pressure 80 mm[Hg] Suhas Garrett Work Phone: [facility] Work Phone: 12-13-2021 11:22-0400 Systolic blood pressure 158 mm[Hg] Suhas Garrett Work Phone: [facility] Work Phone: 12-13-2021 11:17-0400 Body height 157.48 cm Suhas Garrett Work Phone: [facility] Work Phone: 12-13-2021 11:17-0400 Body mass index (BMI) [Ratio] 26.52 kg/m2 Suhas Garrett Work Phone: [facility] Work Phone: 12-13-2021 11:17-0400 Body surface area Derived from formula 1.67 m2 Suhas Garrett Work Phone: [facility] Work Phone: 12-13-2021 11:17-0400 Body weight 65.77 kg Suhas Garrett Work Phone: [facility] Work Phone: 12-13-2021 11:17-0400 Diastolic blood pressure 80 mm[Hg] Suhas Garrett Work Phone: [facility] Work Phone: 12-13-2021 11:17-0400 Heart rate 60 /min Suhas Garrett Work Phone: [facility] Work Phone: 12-13-2021 11:17-0400 Systolic blood pressure 160 mm[Hg] Suhas Garrett Work Phone: [facility] Work Phone: 10-01-2021 13:30-0400 Body height 157.48 cm Suhas Garrett Other [employer] Other 10-01-2021 13:30-0400 Body mass index (BMI) [Ratio] 26.34 kg/m2 Suhas Garrett Other [employer] Other 10-01-2021 13:30-0400 Body weight 65.32 kg Suhas Garrett Other [facility] Other 10-01-2021 13:30-0400 Diastolic blood pressure 72 mm[Hg] Suhas Garrett Other [employer] Other 10-01-2021 13:30-0400 Respiratory rate 18 /min Suhas Garrett Other [facility] Other 10-01-2021 13:30-0400 SaO2% (BldA) [Mass fraction] 99 % Suhasraquel Mayoadan Other [employer] Other 10-01-2021 13:30-0400 Systolic blood pressure 130 mm[Hg] Suhas Garrett Other [facility] Other 08-02-2021 13:30-0500 Body height 157.48 cm Suhas Garrett Other [facility] Other 08-02-2021 13:30-0500 Body mass index (BMI) [Ratio] 26.52 kg/m2 Suhas Garrett Other [facility] Other 08-02-2021 13:30-0500 Body weight 65.77 kg Suhas Garrett Other [facility] Other 08-02-2021 13:30-0500 Diastolic blood pressure 70 mm[Hg] Suhas Garrett Other [facility] Other 08-02-2021 13:30-0500 Respiratory rate 16 /min Suhas Garrett Other [facility] Other 08-02-2021 13:30-0500 SaO2% (BldA) [Mass fraction] 99 % Suhas Garrett Other [facility] Other 08-02-2021 13:30-0500 Systolic blood pressure 118 mm[Hg] Suhas Garrett Other [employer] Other 04-26-2021 13:30-0500 Body height 157.48 cm Suhas Garrett Other [facility] Other 04-26-2021 13:30-0500 Body mass index (BMI) [Ratio] 25.97 kg/m2 Suhas Garrett Other [facility] Other 04-26-2021 13:30-0500 Body weight 64.41 kg Suhas Garrett Other [facility] Other 04-26-2021 13:30-0500 Diastolic blood pressure 74 mm[Hg] Suhas Garrett Other [facility] Other 04-26-2021 13:30-0500 Respiratory rate 17 /min Suhas Garrett Other [facility] Other 04-26-2021 13:30-0500 SaO2% (BldA) [Mass fraction] 98 % Suhas Garrett Other [employer] Other 04-26-2021 13:30-0500 Systolic blood pressure 120 mm[Hg] Suhas Garrett Other [employer] Other Encounters Encounter Date Encounter Type Care Provider Facility Start: 01-14-2025 End: 01-14-2025 Office outpatient visit 25 minutes Shy Wolf MD Work Phone: [facility] Comment on above: Nonrheumatic aortic valve stenosis (Primary Dx); 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; Hyperlipidemia, unspecified hyperlipidemia type; PMR (polymyalgia rheumatica) (Multi); Hypothyroidism, unspecified type; BMI 27.0-27.9,adult; Never smoked any substance; Overweight Start: 01-14-2025 End: 01-14-[facility] Start: 12-21-2024 End: 12-21-2024 Subsequent hospital visit by physician Susie Baker Echo/Vasc Room 2 [facility] Comment on above: Aortic valve stenosi s, etiology of cardiac valve disease unspecified Start: 12-21-2024 End: 12-21-2024 ambulatory [facility] Start: 12-07-2024 End: 12-07-2024 Office outpatient visit 15 minutes Reubenmayo Burns [employer] Work Phone: [facility] Comment on above: 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 (Primary Dx); BMI 26.0-26.9,adult Start: 12-07-2024 End: 12-07-2024 ambulatory [facility] Start: 10-25-2024 End: 10-25-2024 ambulatory Gloria Wseton MD Facility: [facility] Start: 09-13-2024 End: 09-13-2024 ambulatory Gloria Weston MD Facility: [facility] Start: 07-28-2024 End: 07-28-2024 ambulatory Suhas Garrett Facility:[facility] Start: 05-25-2024 End: 05-25-2024 ambulatory Suhas Garrett Facility:[facility] Start: 04-16-2024 End: 04-16-2024 Office outpatient visit 25 minutes Shy Wolf MD Work Phone: [facility] Comment on above: Aortic valve stenosi s, etiology of cardiac valve disease unspecified (Primary Dx); Essential hypertension; Hyperlipidemia, unspecified hyperlipidemia type; Never smoked any substance; BMI 26.0-26.9,adult; Hypothyroidism, unspecified type Start: 04-16-2024 End: 04-16-2024 ambulatory [facility] Start: 02-23-2024 End: 02-23-2024 ambulatory Gloria Weston MD Facility: [facility] Start: 02-11-2024 End: 02-11-2024 Subsequent hospital visit by physician Susie Baker Echo/Vasc Room 2 [facility] Comment on above: Nonrheumatic aortic valve stenosis; Aortic valve stenosis, etiology of cardiac valve disease unspecified Start: 02-11-2024 End: 02-11-2024 ambulatory [facility] Start: 11-24-2023 End: 11-24-2023 ambulatory Gloria Weston MD Facility:[facility] Start: 11-17-2023 End: 11-17-2023 ambulatory Gloria Weston MD Facility:[facility] Start: 10-14-2023 End: 10-14-2023 ambulatory Suhas Garrett Facility:[facility] Start: 09-03-2023 End: 09-03-2023 ambulatory Suhas Garrett Facility:[facility] Start: 07-18-2023 End: 07-18-2023 ambulatory Suhas Garrett Other [facility] Other Start: 07-18-2023 Telephone encounter Suhas Garrett [facility] [place] Start: 07-15-2023 End: 07-15-2023 ambulatory Suhas Garrett Other [facility] Other Start: 07-15-2023 Telephone encounter Suhas Garrett [facility] [place] Start: 07-10-2023 End: 07-10-2023 ambulatory Suhas Garrett Other [facility] Other Start: 07-10-2023 Telephone encounter Suhas Garrett [facility] [place] Start: 07-07-2023 End: 07-07-2023 ambulatory Suhas Garrett Other [facility] Other Start: 07-07-2023 Telephone encounter Suhas Mayos [facility] [place] Start: 07-04-2023 End: 07-04-2023 ambulatory Suhas Garrett Other [facility] Other Start: 07-04-2023 Office outpatient vi sit 15 minutes Suhas Garrett [facility] [place] Start: 06-19-2023 End: 06-19-2023 ambulatory Suhas Garrett Other [facility] Other Start: 06-19-2023 Telephone encounter Suhas Garrett [facility] [place] Start: 06-19-2023 End: 06-19-2023 Office outpatient visit 25 minutes Shy Wolf MD Work Phone: [facility] Comment on above: Aortic valve stenosi s, etiology of cardiac valve disease unspecified; Essential hypertension; Hyperlipidemia, unspecified hyperlipidemia type; Never smoked any substance Start: 05-30-2023 End: 05-30-2023 ambulatory Suhas Garrett Other [facility] Other Start: 05-30-2023 Office outpatient vi sit 25 minutes Suhas Garrett [facility] [place] Start: 05-28-2023 End: 05-28-2023 ambulatory Suhas Garrett Other [facility] Other Start: 05-28-2023 Telephone encounter Suhas Garrett [facility] [place] Start: 04-23-2023 End: 04-23-2023 ambulatory Suhas Garrett Other [facility] Other Start: 04-23-2023 Telephone encounter Suhas Garrett [facility] [place] Start: 04-18-2023 End: 04-18-2023 ambulatory Suhas Garrett Other [facility] Other Start: 04-18-2023 Telephone encounter Suhas Garrett [facility] [place] Start: 03-02-2023 Chart Update Suhas Garrett Work Phone: [facility] [address] DO Work Phone: Start: 02-28-2023 End: 02-28-2023 ambulatory Suhas Garrett Other [facility] Other Start: 02-28-2023 Office outpatient vi sit 15 minutes Suhas Garrett [facility] [place] Start: 02-26-[address] Suhas Garrett Facility:[id number] Start: 01-27-2023 End: 01-27-2023 ambulatory Suhas Garrett Other [facility] Other Start: 01-27-2023 Telephone encounter Suhas Garrett [facility] [place] Start: 12-24-2022 Office outpatient vi sit 25 minutes Suhas Garrett Work Phone: [facility] [address] DO Work Phone: Start: 12-24-[address] Shy Parkahim Facility: Start: 12-06-2022 End: 12-06-2022 ambulatory Suhas Garrett Other [facility] Other Start: 12-06-2022 Office outpatient vi sit 15 minutes Suhas Garrett [facility] [place] Start: 09-20-2022 End: 09-20-2022 ambulatory Suhas Garrett Other [facility] Other Start: 09-20-2022 Office outpatient vi sit 15 minutes Suhas Garrett [facility] [place] Start: 08-14-2022 End: 08-14-2022 ambulatory Suhas Garrett Other [facility] Other Start: 08-14-2022 Telephone encounter Suhas Garrett [facility] [place] Start: 07-22-2022 End: 07-22-2022 ambulatory Suhas Garrett Other [facility] Other Start: 07-22-2022 Office outpatient vi sit 15 minutes Suhas Garrett [facility] [place] Start: 04-17-2022 End: 04-17-2022 ambulatory Suhas Garrett Other [facility] Other Start: 04-17-2022 Office outpatient vi sit 15 minutes Suhas Garrett [facility] [place] Start: 04-10-2022 End: 04-10-2022 ambulatory Suhas Gaeladan Other [facility] Other Start: 04-10-2022 Telephone encounter Suhas Ugo [facility] [place] Start: 04-03-2022 End: 04-03-2022 ambulatory Suhas Mayoadan Other [facility] Other Start: 04-03-2022 Telephone encounter Suhas Garrett [facility] [place] Start: 04-02-2022 End: 04-02-2022 ambulatory Suhas Garrett Other [facility] Other Start: 04-02-2022 Telephone encounter Suhas Garrett [facility] [place] Start: 02-26-2022 End: 02-26-2022 ambulatory Suhas Mayoadan Other [facility] Other Start: 02-26-2022 Telephone encounter Suhasraquel Garrett [facility] [place] Start: 02-25-2022 End: 02-25-2022 ambulatory Suhas Mayoadan Other [facility] Other Start: 02-25-2022 Telephone encounter Suhasraquel Garrett [facility] [place] Start: 02-22-2022 End: 02-22-2022 ambulatory Suhas Mayoadan Other [facility] Other Start: 02-22-2022 Office outpatient vi sit 25 minutes Suhas Garrett [facility] [place] Start: 02-21-2022 Patient encounter procedure Suhas Garrett Work Phone: [facility] [id number] [place] Work Phone: Start: 02-20-2022 End: 02-21-2022 ambulatory MAYO CARBAJAL Facility:[facility] Start: 02-14-2022 End: 02-14-2022 ambulatory Suhas Garrett Other [facility] Other Start: 02-14-2022 Office outpatient vi sit 25 minutes Suhas Garrett [facility] [place] Start: 01-11-2022 End: 01-11-2022 ambulatory Suhas Garrett Other [facility] Other Start: 01-11-2022 Nursing evaluation o f patient and report Suhas Garrett [facility] [place] Start: 01-11-2022 Telephone encounter Suhas Garrett [facility] [place] Start: 12-26-2021 Office outpatient vi sit 10 minutes Suhas Garrett Work Phone: [facility] 250 DO Work Phone: Start: 12-26-[address] Suhas Garrett Facility: Start: 12-20-2021 End: 12-20-2021 ambulatory Suhas Garrett Other [facility] Other Start: 12-20-2021 Telephone encounter Suahs Garrett [facility] [place] Start: 12-13-2021 Office outpatient vi sit 25 minutes Suhas Garrett Work Phone: [facility] Work Phone: Start: 11-02-2021 End: 11-02-2021 ambulatory Suhas Garrett Other [facility] Other Start: 11-02-2021 Telephone encounter Suhas Garrett [facility] [place] Start: 10-01-2021 End: 10-01-2021 ambulatory Suhas Garrett Other [facility] Other Start: 10-01-2021 Office outpatient vi sit 15 minutes Suhas Garrett [facility] [place] Start: 09-10-2021 End: 09-10-2021 ambulatory Suhas Garrett Other [facility] Other Start: 09-10-2021 Telephone encounter Suhas Garrett [facility] [place] Start: 08-20-2021 End: 08-20-2021 ambulatory Suhas Garrett Other [facility] Other Start: 08-20-2021 Telephone encounter Suhas Garrett [facility] [place] Start: 08-02-2021 End: 08-02-2021 ambulatory Suhasraquel Garrett Other [facility] Other Start: 08-02-2021 Office outpatient vi sit 15 minutes Suhas Garrett [facility] [place] Start: 07-25-2021 End: 07-25-2021 ambulatory Suhasraquel Garrett Other [facility] Other Start: 07-25-2021 Telephone encounter Suhas Garrett [facility] [place] Start: 05-08-2021 End: 05-08-2021 ambulatory Suhas Garrett Other [facility] Other Start: 05-08-2021 Telephone encounter Suhas Garrett [facility] [place] Start: 04-26-2021 End: 04-26-2021 ambulatory Suhasraquel Garrett Other [facility] Other Start: 04-26-2021 Office outpatient vi sit 25 minutes Suhas Garrett [facility] [place] Procedures Date Procedure Procedure Detail 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 [...] DTaP/Tdap/Td Vaccines (2 - Td or Tdap) [facility] Start: 01-26-2026 End: 01-26-2026 Patient encounter procedure 01/26/2026 11:00 AM EDT Office Visit [facility] [address] [place] [address] Shy Wolf MD [address] [place] [address] [facility] Start: 12-21-2025 Echocardiography Echocardiogram [facility] Start: 12-20-2025 End: 12-20-2025 Patient encounter procedure 12/20/2025 10:45 AM EDT Appointment [facility] [address] [place] [address] [facility] Start: 12-14-2025 End: 01-14-2027 US Heart Transthoracic Transthoracic Echo Complete Echocardiography Routine Nonrheumatic aortic valve stenosis Expected: 12/14/2025 (Approximate), Expires: 01/14/2027 [facility] Work Phone: Comment on above: Expected: 12/14/2025 (Approximate), Expi res: 01/14/2027 Start: 08-07-2025 Medicare Annual Wellness Visit Medicare Annual Wellness Visit (AWV) [facility] Start: 02-10-2025 Echocardiography Echocardiogram [facility] Start: 02-07-2025 Influenza vaccination Influenza Vaccine (#1) [facility] Start: 01-14-2025 End: 04-16-2026 US Heart Transthoracic Transthoracic Echo Complete Echocardiography Routine Aortic valve stenosis, etiology of cardiac valve disease unspecified Expected: 01/14/2025 (Approximate), Expires: 04/16/2026 [facility] Work Phone: Comment on above: Expected: 01/14/2025 (Approximate), Expi res: 04/16/2026 Start: 01-14-2025 End: 01-14-2025 Patient encounter procedure 01/14/2025 11:00 AM EDT Office Visit [address] [place] [address] Shy Wolf MD [address] [place], [place] [id number] [facility] Start: 12-21-2024 End: 12-21-2024 Patient encounter procedure 12/21/2024 12:30 PM EDT Appointment [place] [id number] [place] [address] [facility] Start: 10-06-2024 COVID-19 Vaccine ( season) COVID-19 Vaccine ( season) [facility] Start: 03-16-2024 End: 03-16-2024 Patient encounter procedure 03/16/2024 11:20 AM EDT Office Visit [place] [address] [place] [address] Shy Wolf MD [address] [place] [address] [facility] Start: 02-19-2024 Screening for osteoporosis Bone Density Scan [facility] Start: 02-11-2024 End: 02-11-2024 Patient encounter procedure 02/11/2024 12:30 PM EDT Appointment [place] [id number] [place] [address] [facility] Start: 02-08-2024 COVID-19 Vaccine ( season) COVID-19 Vaccine ( season) [facility] Start: 02-08-2024 Influenza vaccination Influenza Vaccine (#1) [facility] Start: 02-08-2024 End: 06-19-2025 US Heart Transthoracic Transthoracic Echo (TTE) Complete Echocardiography Routine Aortic valve stenosis, etiology of cardiac valve disease unspecified Expected: 02/08/2024 (Approximate), Expires: 06/19/2025 [facility] Work Phone: Comment on above: Expected: 02/08/2024 (Approximate), Expi res: 06/19/2025 Start: 06-19-2023 FUV, Provider: Shy Wolf, Status: Pen, Time: 11:00 AM FUV, Provider: Shy Wolf, Status: Pen, [facility]: [facility] Work Phone: Start: 05-28-2023 COVID-19 Vaccine (5 - Moderna series) COVID-19 Vaccine (5 - Moderna series) [facility] Start: 02-26-2023 ECHO, Provider: SAMUEL YII ULTRASOUND 01,[id number], Status: Pen, Time: 10:45 AM ECHO, Provider: SAMUEL HHVI ULTRASOUND 01,[id number], Status: Pen, Time: 10:45 AM [facility] [address] DO Work Phone: Start: 12-24-2022 FUV, Provider: Shy Wolf, Status: Pen, Time: 11:20 AM FUV, Provider: Shy Wolf, Status: Pen, Time: 11:20 AM [facility] Work Phone: Start: 02-21-2022 CAROTID, Provider: SAMUEL HHVI ULTRASOUND 01,[id number], Status: Pen, Time: 12:30 PM CAROTID, Provider: SAMUEL HHVI ULTRASOUND 01,[id number], Status: Pen, Time: 12:30 PM [facility] Work Phone: Start: 02-21-2022 ECHO, Provider: SAMUEL HHVI ULTRASOUND 01,[id number], Status: Pen, Time: 10:45 AM ECHO, Provider: SAMUEL HHVI ULTRASOUND 01,[id number], Status: Pen, Time: 10:45 AM [facility] Work Phone: Start: 01-17-2022 CAROTID, Provider: SAMUEL HHVI ULTRASOUND 01,[id number], Status: Pen, Time: 2:30 PM CAROTID, Provider: SAMUEL HHVI ULTRASOUND 01,[id number], Status: Pen, Time: 2:30 PM [facility] Work Phone: Start: 01-17-2022 ECHO, Provider: SAMUEL HHVI ULTRASOUND 01,[id number], Status: Pen, Time: 1:30 PM ECHO, Provider: SAMUEL HHVI ULTRASOUND 01,[id number], Status: Pen, Time: 1:30 PM [facility] Work Phone: Start: 12-26-2021 NURSEVST, Provider: MAGDA DANIEL ASSOCIATE PROFESSOR OF [employer] 1,[id number], Status: Pen, Time: 11:00 AM NURSEVST, Provider: MAGDA DANIEL ASSOCIATE PROFESSOR [employer] 1,[id number], Status: Pen, Time: 11:00 AM [facility] Work Phone: Start: 1996 Hepatitis B Vaccines (1 of 3 - Risk 3-dose series) Hepatitis B Vaccines (1 of 3 - Risk 3-dose series) [facility] Start: 08-11-1955 Hepatitis A Vaccines (1 of 2 - Risk 2-dose series) Hepatitis A Vaccines (1 of 2 - Risk 2-dose series) [facility] Start: 1936 Creatinine measurement Creatinine Level [facility] Start: 1936 Lipid panel Lipid Panel [facility] Start: 1936 Medicare Annual Wellness Visit Medicare Annual Wellness Visit (AWV) [facility] Start: 1936 Potassium measurement Potassium Level [facility] Start: 1936 Thyroid stimulating hormone measurement TSH Level [facility] ECG 12 Lead ECG 12 Lead ECG Routine 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 Ordered: 12/08/2024 [facility] Work Phone: Comment on above: Ordered: 12/08/2024 End: 02-11-2024 US Heart Transthoracic [facility] Work Phone: Comment on above: Once for 1 Occurrences starting 02/11/20 24 until 02/11/2024 Immunizations Immunization Date Immunization Notes Care Provider Fa doug 04-23-2024 Pneumococcal conjuga te vaccine, 20-valent (PREVNAR 20) Shy Wolf MD Work Phone: [facility] Work Phone: 04-07-2024 Moderna COVID-19 vaccine, 12 years and older (50mcg/0.5mL)(Spikevax) Shy Wolf MD Work Phone: [facility] Work Phone: 04-07-2024 Seasonal trivalent influenza vaccine, adjuvanted, preservative free Shy Wolf MD Work Phone: [facility] Work Phone: 04-07-2024 influenza virus vaccine, unspecified formulation Reuben BURGER Work Phone: [facility] Work Phone: 06-07-2023 RESPIRATORY SYNCYTIA L VIRUS (RSV), ELIGIBLE PTS, 0.5 ML (ABRYSVO) Shy Wolf MD Work Phone: [facility] Work Phone: 04-02-2023 Influenza, Seasonal, Quadrivalent, Adjuvanted Shy Wolf MD Work Phone: [facility] Work Phone: 04-02-2023 Moderna COVID-19 vaccine, 12 years and older (50mcg/0.5mL)(Spikevax) Shy Wolf MD Work Phone: [facility] Work Phone: 04-02-2023 influenza virus vaccine, unspecified formulation Susie 2 [facility] Work Phone: 04-17-2022 Moderna COVID-19 Bivalent 50 MCG/0.5ML Intramuscular Suspension Suhas Garrett Work Phone: [facility] 250 DO Work Phone: 03-21-2022 Fluad Quadrivalent 0 .5 ML Intramuscular Prefilled Syringe Suhas Garrett Work Phone: [facility] 250 DO Work Phone: 03-21-2022 influenza, seasonal, injectable Suhas Garrett Other [facility] Other 11-14-2021 Moderna COVID-19 Vaccine 100 MCG/0.5ML Intramuscular Suspension Suhas Garrett Work Phone: [facility] Work Phone: 04-05-2021 Moderna COVID-19 Vaccine 100 MCG/0.5ML Intramuscular Suspension Suhas Garrett Work Phone: [facility] Work Phone: 03-19-2021 influenza, seasonal, injectable Suhas Garrett Other [facility] Other 08-08-2020 Moderna COVID-19 Vaccine 100 MCG/0.5ML Intramuscular Suspension Suhas P Ugo Work Phone: [facility] Work Phone: 07-11-2020 Moderna COVID-19 Vaccine 100 MCG/0.5ML Intramuscular Suspension Suhas P Ugo Work Phone: [facility] Work Phone: 04-28-2020 pneumococcal polysaccharide vaccine, 23 valent Suhas Garrett Other [facility] Other 03-06-2020 Seasonal trivalent influenza vaccine, adjuvanted, preservative free Suhas P Gaels Work Phone: [facility] Work Phone: 03-06-2020 influenza, seasonal, injectable Suhasraquel Mayos Other [facility] Other 02-08-2020 influenza virus vaccine, unspecified formulation Suhas P Kuns Work Phone: [facility] Work Phone: 02-08-2020 influenza, seasonal, injectable Suhas Kuns Other [facility] Other 05-04-2019 zoster vaccine recombinant Suhas Mayos Other [facility] Other 03-09-2019 influenza, high dose seasonal, preservative-free Suhas P Kuns Work Phone: [facility] Work Phone: 03-04-2019 influenza, seasonal, injectable Suhas Mayos Other [facility] Other 02-04-2019 zoster vaccine recombinant Suhas Mayos Other [facility] Other 05-12-2018 tetanus toxoid, redu bety diphtheria toxoid, and acellular pertussis vaccine, adsorbed Suhas Mayos Other [facility] Other 03-16-2018 Seasonal trivalent influenza vaccine, adjuvanted, preservative free Shy Wolf MD Work Phone: [facility] Work Phone: 03-09-2018 influenza virus vaccine, unspecified formulation Suhas P Kuns Work Phone: [facility] Work Phone: 04-09-2017 influenza virus vaccine, unspecified formulation Suhas P Kuns Work Phone: [facility] Work Phone: 03-28-2017 Seasonal trivalent influenza vaccine, adjuvanted, preservative free Suhas P Ugo Work Phone: [facility] Work Phone: 05-24-2016 pneumococcal conjuga te vaccine, 13 valent Shy Wolf MD Work Phone: [facility] Work Phone: 05-23-2016 pneumococcal conjuga te vaccine, 13 valent Suhasraquel Garrett Other [facility] Other 04-01-2016 Seasonal trivalent influenza vaccine, adjuvanted, preservative free Suhas P Ugo Work Phone: [facility] Work Phone: 03-09-2016 influenza virus vaccine, unspecified formulation Suhas P Ugo Work Phone: [facility] Work Phone: 03-09-2016 pneumococcal conjuga te vaccine, 13 valent Suhas P Ugo Work Phone: [facility] Work Phone: 04-07-2015 influenza, injectabl e, quadrivalent, contains preservative Suhas P Kuns Work Phone: [facility] Work Phone: 03-09-2015 influenza virus vaccine, unspecified formulation Suhas P Ugo Work Phone: [facility] Work Phone: 04-05-2014 influenza, seasonal, injectable, preservative free Suhas P Gaels Work Phone: [facility] Work Phone: 03-09-2014 influenza virus vaccine, whole virus Suhas Garrett Work Phone: [facility] Work Phone: 03-23-2013 influenza, seasonal, injectable Suhas P Gaels Work Phone: [facility] Work Phone: 03-09-2013 influenza virus vaccine, unspecified formulation Suhas Garrett Work Phone: [facility] Work Phone: 04-14-2012 influenza, injectabl e, quadrivalent, contains preservative Suhas Garrett Other [facility] Other 06-09-2011 influenza virus vaccine, unspecified formulation Suhas Garrett Work Phone: [facility] Work Phone: 06-09-2010 influenza virus vaccine, unspecified formulation Suhas Garrett Work Phone: [facility] Work Phone: 06-09-2009 influenza virus vaccine, unspecified formulation Suhas Garrett Work Phone: [facility] Work Phone: 05-30-2009 novel [id number], preservative-free, injectable Suhas Garrett Work Phone: [facility] Work Phone: 10-19-2007 varicella virus vaccine Belkys Garrett Work Phone: [facility] Work Phone: 06-09-2006 pneumococcal polysaccharide vaccine, 23 valent Suhas Garrett Work Phone: [facility] Work Phone: Payers Date Payer Category Payer Self-pay 2022 Managed Care (Private) [facility] [id number] 2022 Private Health Insurance [id number] 2001 Medicare [id number] 2001 Unknown 1959 Medicare [id number] 1959 Private Health Insurance [id number] 1936 Unknown [id number] 2.16840.1.786896.3.579. 2.593 1936 Unknown [id number] 2.16840.1.628540.3.579. 2.356 1936 Unknown [id number] 2.16840.1.067487.3.579. 2.356 1936 Unknown [id number] 2.16840.1.138604.3.579. 2.1068 1936 Unknown [id number] 2.16840.1.031762.3.579. 2.196 1936 Unknown [id number] 2.16840.1.024641.3.579. 2.196 1936 Unknown [id number] 2.16840.1.924174.3.579. 2.196 1936 Unknown [id number] 2.16840.1.158218.3.579. 2.196 1936 Unknown [id number] 2.16.840.1.414125.3.579. 2.196 1936 Unknown [id number] 2.16840.1.633346.3.579. 2.1246 1936 Unknown [id number] 2.16.840.1.442349.3.579. 2.1246 1936 Unknown [id number] 2.16.840.1.486542.3.579. 2.1244 1936 Unknown [id number] 2.16.840.1.490818.3.579. 2.1244 1936 Unknown [id number] 2.16.840.1.655858.3.579. 2.1244 Unknown [id number] 2.16.840.1.352794.3.579. 2.531 Unknown [id number] 2.16.840.1.518212.3.579. 2.531 Unknown [id number] 2.16.840.1.884845.3.579. 2.531 Unknown [id number] 2.16.840.1.195326.3.579. 2.531 Social History Date Type Detail Facility Unknown if ever smoked [facility] Other Start: 06-19-2023 End: 01-14-2025 Sex Assigned At [employer] Other Start: 06-19-2023 End: 01-14-2025 Caffeine use Caffeine use [facility] Work Phone: Start: 06-19-2023 Tobacco smoking stat RUSTIS Never smoked tobacco [facility] Work Phone: Start: 06-19-2023 Tobacco use and exposure Smokeless tobacco non-user [facility] Work Phone: Start: 1935 [facility] Start: 06-09-2023 End: 04-16-2024 Exposure to SARS-CoV-2 (event) Not sure [facility] Start: 04-16-2024 End: 01-14-2025 Alcoholic beverage intake Current drinker of alcohol (finding) [facility] Work Phone: Start: 05-03-2022 Sex Female [facility] Clinical Notes 02-15-2015 to 01-14-2025 Shy Wolf MD - 01/14/2025 11:00 AM EDTPatient InstructionsAttaAdinamayo Gibbs YASMIN Burns-CLERICAL ADJUSTER - 12/07/2024 3:00 PM EDTPatient InstructionsShy Wolf [...] discussion and plan. documented in this encounter [facility] Work Phone: 01-14-2025 Instructions Richelle Frey LPN [...] be sent through Care Everywhere.Heart Healthy Diet (North Korean)documented in this encounter [facility] Work Phone: 12-07-2024 History of Present illness [...] in patient record. Reuben Burns MSN, JENNYFER, PMHNP-[facility] [place], [place] Please excuse any errors in grammar or translation related to this dictation. Voice recognition software was utilized to prepare this document. documented in this encounter [facility] Work Phone: 12-07-2024 Instructions JENNYFER Garsia - [...] Wolf as scheduled documented in this encounter [facility] Work Phone: 12-07-2024 Miscellaneous Notes Addended by: REUBEN BURNS on: 12/08/2024 02:08 PM Modules accepted: Orders documented in this encounter [facility] Work Phone: 12-07-2024 Note Addended by: REUBEN BURNS on: 12/08/2024 02:08 PM Modules accepted: Orders [facility] Work Phone: 04-16-2024 History of Present illness [...] discussion and plan. documented in this encounter [facility] Work Phone: 04-16-2024 Instructions Sherin Mendez LPN [...] month follow up documented in this encounter [facility] Work Phone: 07-18-2023 Evaluation note Encounter Date Diagnosis Assessment Notes Jul, PMR (polymya lgia rheumati ca) (ICD-10 - M35.3) [facility] Other 02-06-2024 Evaluation note* Encounter Date Diagnosis Assessment Notes Treatment Notes Treatment Clinical Notes Jul, PMR (polymyalgia rheumatica) (ICD-10 - M35.3) [facility] Other 02-01-2024 Evaluation note* Encounter Date Diagnosis Assessment Notes Treatment Notes Treatment Clinical Notes Jul, Hypothyroidism (ICD-10 - E03.9) [facility] Other 01-29-2024 Evaluation note* Encounter Date Diagnosis Assessment Notes Treatment Notes Treatment Clinical Notes Jun, Hypothyroidism (ICD- 10 - E03.9) Jun, Hyperthyroidism (ICD-10 - E05.90) [facility] Other 01-26-2024 Evaluation note* Encounter Date Diagnosis [...] medications in combination with eachother. Also discussed half-way steriod use in regards to her condition. [...] requires sooner she is welcome to call. [facility] Other 01-11-2024 Evaluation note* Encounter Date Diagnosis Assessment Notes Treatment Notes Treatment Clinical Notes Jun, PMR (polymyalgia rheumatica) (ICD-10 - M35.3) [facility] Other 01-11-2024 History of Present illness Narrative* [...] of Shy Wolf MD. [facility]: 1(204) 935-185001-11-2024 Instructions* Patient Instructions* Yevgeniy Cortez MA - [...] time of your visit. [facility]: [phone]) 730-127212-22-2023 Evaluation note* Encounter Date Diagnosis Assessment Notes [...] recommend the patient get the RSV vaccine. [facility] Other 12-20-2023 Evaluation note* Encounter Date Diagnosis Assessment Notes Treatment Notes Treatment Clinical Notes May, Hypertension (ICD-10 - I10) May, Hypothyroidism (ICD-10 - E03.9) [facility] Other 11-10-2023 Evaluation note* Encounter Date Diagnosis Assessment Notes Treatment Notes Treatment Clinical Notes Apr, PMR (polymyalgia rheumatica) (ICD-10 - M35.3) [facility] Other 09-22-2023 Evaluation note* Encounter Date Diagnosis Assessment Notes Treatment Notes Treatment Clinical Notes Feb, PMR (polymyalgia rheumatica) (ICD-10 - M35.3) She was encouraged to take 2.5mg daily. Patient is agreeable. Feb, Hypertension (ICD-10 - I10) Blood pressure is satisfactory, she is to follow with cardiology as scheduled. [facility] Other 08-21-2023 Evaluation note* Encounter Date Diagnosis Assessment Notes Treatment Notes Treatment Clinical Notes Jan, Hypertension (ICD-10 - I10) [facility] Other 06-30-2023 Evaluation note* Encounter Date Diagnosis [...] would like to do. Patient is agreeable. [facility] Other 04-14-2023 Evaluation note* Encounter Date Diagnosis [...] tablets daily. We will continue to monitor. [facility] Other 03-08-2023 Evaluation note* Encounter Date Diagnosis Assessment Notes Treatment Notes Treatment Clinical Notes Aug, PMR (polymyalgia rheumatica) (ICD-10 - M35.3) [facility] Other 02-13-2023 Evaluation note* Encounter Date Diagnosis [...] states she has an upcoming appointment with sash assembler and she will discuss making medication changes at that time. [facility] Other 11-09-2022 Evaluation note* Encounter Date Diagnosis [...] can cut Apr, Hyperlipidemia (ICD-10 - E78.5) [facility] Other 11-02-2022 Evaluation note* Encounter Date Diagnosis Assessment Notes Treatment Notes Treatment Clinical Notes Apr, PMR (polymyalgia rheumatica) (ICD-10 - M35.3) [facility] Other 10-26-2022 Evaluation note* Encounter Date Diagnosis Assessment Notes Treatment Notes Treatment Clinical Notes Mar, Lumbar back pain (ICD-10 - M54.50) [facility] Other 09-20-2022 Evaluation note* Encounter Date Diagnosis Assessment Notes Treatment Notes Treatment Clinical Notes Feb, Elevated liver function tests (ICD-10 - R79.89) [facility] Other 09-16-2022 Evaluation note* Encounter Date Diagnosis Assessment Notes Treatment Notes Treatment Clinical Notes Feb, Acute pain of left shoulder (ICD-10 - M25.512) [employer] ER report reviewed from 02/20/22 . The [...] pain (ICD-10 - R10.13) The patient advised [place] could be causing her GI upset , [...] month Bon[place] at her next office visit. [facility] Other 09-08-2022 Evaluation note* Encounter Date Diagnosis [...] (ICD-10 - M85.80) Noted on Lumbar x-ray. [facility] Other 08-05-2022 Evaluation note* Encounter Date Diagnosis Assessment Notes Treatment Notes Treatment Clinical Notes Jan, COVID-19 (ICD-10 - U07.1) [facility] Other 08-05-2022 Evaluation note* Encounter Date Diagnosis Assessment Notes Treatment Notes Treatment Clinical Notes Jan, Cough (ICD-10 - R05.9) In house covid test is positive. Treatment plan discussed in TE. [facility] Other 07-14-2022 Evaluation note* Encounter Date Diagnosis Assessment Notes Treatment Notes Treatment Clinical Notes Dec, PMR (polymyalgia rheumatica) (ICD-10 - M35.3) [facility] Other 05-27-2022 Evaluation note* Encounter Date Diagnosis Assessment Notes Treatment Notes Treatment Clinical Notes October, PMR (polymyalgia rheumatica) (ICD-10 - M35.3) [facility] Other 04-25-2022 Evaluation note* Encounter Date Diagnosis [...] The patient encourged to continue following with sash assembler annually in December as scheduled. I did forward a copy of most current blood work results . [facility] Other 04-04-2022 Evaluation note* Encounter Date Diagnosis Assessment Notes Treatment Notes Treatment Clinical Notes Sep, PMR (polymyalgia rheumatica) (ICD-10 - M35.3) Sep, Hypertension (ICD-10 - I10) [facility] Other 02-24-2022 Evaluation note* Encounter Date Diagnosis [...] if needed. We will continue to montior. [facility] Other 02-16-2022 Evaluation note* Encounter Date Diagnosis Assessment Notes Treatment Notes Treatment Clinical Notes Jul, PMR (polymyalgia rheumatica) (ICD-10 - M35.3) [facility] Other 11-30-2021 Evaluation note* Encounter Date Diagnosis Assessment Notes Treatment Notes Treatment Clinical Notes Apr, PMR (polymyalgia rheumatica) (ICD-10 - M35.3) [facility] Other 11-18-2021 Evaluation note* Encounter Date Diagnosis [...] Hypothyroidism (ICD-10 - E03.9) Blood work ordered. [facility] Other 09-09-2015 History general Narrative - Reported* Type Description Date Medical History Shingles Medical History 02-15-15-mammogram-negativ e Medical History [id number]-yuipcnunjcb-mcbllf, repea t in 3 yrs Medical History 03/2017- colonoscopy- normal Medical History f/u with cardiology [facility] Medical History ECHO 09/2016 Surgical History Appendectomy Surgical History Gallbladder Removal Surgical History Ovarian Cyst Removal Surgical History Coccyx repair Surgical History Cataracts Bilateral Eyes Surgical History thyroidectomy Dr. Forbes 10/14/2019 Hospitalization History Childbirth x5 Hospitalization History See Above [facility] Other [facility]No [facility] Other Evaluation note* Diagnosis Aortic valve stenosis, etiology of cardiac valve disease unspecified Essential hypertension Unspecified essential hypertension Hyperlipidemia, unspecified hyperlipidemia type Never smoked any substance documented in this encounter [facility] Work Phone: Evaluation note* Diagnosis Aortic valve stenosis, etiology of cardiac valve disease unspecified- Primary Essential hypertension Unspecified essential hypertension Hyperlipidemia, unspecified hyperlipidemia type Never smoked any substance BMI 26.0-26.9,adult Hypothyroidism, unspecified type documented in this encounter [facility] Work Phone: Evaluation note* Diagnosis Nonrheumatic aortic valve stenosis Aortic valve stenosis, etiology of cardiac valve disease unspecified documented in this encounter [facility] Work Phone: Evaluation note* Diagnosis 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- Primary BMI 26.0-26.9,adult documented in this encounter [facility] Work Phone: Evaluation note* Diagnosis Aortic valve stenosis, etiology of cardiac valve disease unspecified documented in this encounter [facility] Work Phone: Evaluation note* Diagnosis Nonrheumatic aortic valve stenosis- Primary 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 Hyperlipidemia, unspecified hyperlipidemia type PMR (polymyalgia rheumatica) (Multi) Polymyalgia rheumatica Hypothyroidism, unspecified type BMI 27.0-27.9,adult Never smoked any substance Overweight documented in this encounter [facility] Work Phone: Reason for visit Narrative* CV Imaging (Routine) - Authorized Specialty Diagnoses / Procedures Referred By Contac t Referred To Contact Cardiology Diagnoses Aortic valve stenosis, etiology of cardiac valve disease unspecified Procedures Transthoracic Echo Complete GA ECHO TTHRC R-T 2D W/WOM-MODE COMPL SPEC&COLR D Shy Wolf MD [address] [facility] [address], [address] [address] Phone: tel: fax: Referral ID Status Reason Start Date Expiration Date Visits Requested Visits Authorized [id number] Authorized Perform Procedure 04/16/2024 04/16/2025 1 1 [facility] Work Phone: Chief Complaint * LAVONNE [...] Organization [facility] [place] Referring Provider First Name Suhas Referring Provider Last Name Ugo Referring Provider [facility] sukhjinder Referred Organization [facility] Referred Address [address] [place], [place],[address] Referred Provider Specialty Rheumatology Referral Priority Routine General Notes Zaida Tinsley 10:11:01 AM >received today, completed referral form and faxed to their referring physicians department. Patient will be contacted by the CC to schedule her appointment. Specialty Diagnoses / Procedures Referred By Contsavanah t Referred To Contact Cardiology Diagnoses Aortic valve stenosis, etiology of cardiac valve disease unspecified Procedures Transthoracic Echo (TTE) Complete GA ECHO TTHRC R-T 2D W/WOM-MODE COMPL SPEC&COLR D Shy Wolf MD [address] [facility] [address], [address] [place] [address] Referral ID Status Reason Start Date Expiration Date Visits Requested Visits Authorized [id number] Pending Review Perform Procedure 06/19/2023 06/18/2024 1 1 Specialty Diagnoses / Procedures Referred By Contac t Referred To Contact Cardiology Diagnoses Aortic valve stenosis, etiology of cardiac valve disease unspecified Procedures Follow Up In Cardiology Shy Wolf MD [address] [facility] [address] [address] Shy Wolf MD [address] [facility] [address] [address] Referral ID Status Reason Start Date Expiration Date V isits Requested Visits Authorized [id number] Authorized 06/19/2023 06/18/2024 1 1 Additional Source Comments REASON FOR VISIT (unrecogniz ed section and content) Reason Comments Follow-up 9 month, echocardiog taz results Specialty Diagnoses / Procedures Referred By Contac t Referred To Contact Cardiology Diagnoses Aortic valve stenosis, etiology of cardiac valve disease unspecified Procedures Follow Up In Cardiology Shy Wolf MD [address] [facility] [address], [address] [address] Phone: tel: fax: Shy Wolf MD [address] [facility] [address] [address] Phone: tel: fax: Referral ID Status Reason Start Date Expiration Date V isits Requested Visits Authorized [id number] Authorized 04/16/2024 04/16/2025 1 1 Reason Comments Follow-up 6m Reason Comments Follow-up 9m Referral ID Status Reason Start Date Expiration Date V isits Requested Visits Authorized [id number] Authorized 06/19/2023 06/18/2024 1 1 Specialty Diagnoses / Procedures Referred By Contac t Referred To Contact Cardiology Diagnoses Nonrheumatic aortic valve stenosis Procedures Transthoracic Echo (TTE) Complete GA ECHO TRANSTHORC R-T 2D W/WO M-MODE REC F-UP/LMTD GA DOP ECHOCARD COLOR FLOW VELOCITY MAPPING GA DOP ECHOCARD PULSE WAVE W/SPECTRAL F-UP/LMTD STD Shy Wolf MD [address] [facility] [address], [address] [address] Referral ID Status Reason Start Date Expiration Date Visits Requested Visits Authorized [id number] Authorized Perform Procedure 03/03/2023 08/30/2023 1 1 Reason Comments Pre-op Clearance POC for spinal cord stimulator, scheduled 12.13.[address] Weston. INFORMATION SOURCE (unrecogn ized section and content) DATE CREATED AUTHOR 03/06/2022 [facility] DATE CREATED AUTHOR AUTHOR'S ORGANIZ ATION 12/25/2022 [facility] DATE CREATED AUTHOR AUTHOR'S ORGANIZ ATION 12/25/2022 [facility] DATE CREATED AUTHOR AUTHOR'S ORGANIZ ATION 03/03/2023 [facility] DATE CREATED AUTHOR AUTHOR'S ORGANIZ ATION 07/29/2024 [facility] DATE CREATED AUTHOR AUTHOR'S ORGANIZ ATION 11/05/2024 [facility] DATE CREATED AUTHOR AUTHOR'S ORGANIZ ATION 12/25/2024 [facility] DATE CREATED AUTHOR AUTHOR'S ORGANIZ ATION 01/16/2025 [facility] [facility] Factory Assembler Teams (unrecognized sec tion and content) Aerographer Relationship Specialty Start Date End Date Suhas Garrett DO PCP - General 06/09/99 Aerographer Relationship Specialty Start Date End Date Suhas Garrett DO [address] [place] [address] PCP - General Family Medicine 01/30/24 Aerographer Relationship Specialty Start Date End Date Suhas Garrett DO [address] [place] [address] PCP - General Family Medicine 01/30/24 Aerographer Relationship Specialty Start Date End Date Suhas Garrett, DO [address] [place] [address] PCP - General Family Medicine 01/30/24 Aerographer Relationship Specialty Start Date End Date Suhas Garrett DO [address] [place] [address] PCP - General Family Medicine 01/30/24 Aerographer Relationship Specialty Start Date End Date Suhas Garrett, DO [address] [place] [address] PCP - General Family Medicine 01/30/24 FOR [...] BE BASED ON THE PRIMARY CLINICAL RECORDS. [facility]. provides no warranty or guarantee of the accuracy or completeness of information in this document.
== END 2025-02-16 10:53 | disposition home or self-care (01) ==
PROVIDERS: PCP Family Medicine; Visit Provider Nurse Practitioner
DX: M48.062 Spinal stenosis, lumbar region with neurogenic claudication (principal)

== ENCOUNTER 2025-02-21 13:30 | Outpatient (OUT) | payer MEDICARE, OTHER, SELFPAY ==
--- OUTSIDE RECORDS SUMMARY | 2025-02-21 13:32 | XMS_ITS | Encounter Summary ---
Author Organization [facility] Address [address] [place] [address] Phone Care Team Providers Care Dedicated Truck Driver Name Role Phone Suhas Arizmendi DO Primary Care Provider [phone] Suhas Arizmendi DO Primary Care Provider [phone] Encounter Details Date Type Department Care Team (Late st Contact Info) Description 02/26/2023 Scanned Document [facility] LE[facility] [address] [place] [address] Conversion, Onbase Social History Tobacco Use Types [...] Info) Description 12/20/2025 10:45 AM EDT Appointment [place] [id number] [employer] [address] [place] [address] 01/26/2026 11:00 AM EDT Office Visit [address] [place] [phone] Michel Wolf MD 7[address] [facility] 2, [address] [place], [place] [phone] documented as of this encounter Procedures Procedure Name Priority Date/Time Associated Diagnosis Comments ECHOCARDIOGRAM 02/26/2023 documented in this encounter Results * ECHOCARDIOGRAM (02/26/2023) Narrative 02/26/2023 Ordered by an unspecified provider. us Onbase Conversion CV ECHO PROCEDURES Final Resul t documented in this encounter Visit Diagnoses Not on filedocumented in this encounter Care Teams Dedicated Truck Driver Relationship Specialty Start Date End Date Suhas Arizmendi DO PCP - General 06/09/99 01/29/24 Suhas Arizmendi DO [address] [place] [address] PCP - General Family Medicine 01/30/24 documented as of this encounter
--- OUTSIDE RECORDS SUMMARY | 2025-02-21 13:32 | XMS_ITS | Clinical Summary ---
Author Organization [facility] Address [address] [place] [address] Care Team Providers Care Tile Power Shear Operator Name Role Phone Unavailable Primary Care Provider [...] of Treatment Not on [place] [phone]
--- OUTSIDE RECORDS SUMMARY | 2025-02-21 13:32 | XMS_ITS | Encounter Summary ---
Author Organization [facility] Address [address] [place] [id number] Phone Care Team Providers Care Elevator Mechanic Name Role Phone Suhas Arizmendi DO Primary Care Provider [phone] Suhas Arizmendi DO Primary Care Provider [phone] Encounter Details Date Type Department Care Team (Late st Contact Info) Description 04/19/2019 Orders Only [facility] LEGACY [address] [place] [address] Conversion, Onbase Social History Tobacco Use Types [...] Info) Description 12/20/2025 10:45 AM EDT Appointment [address] [place] [address] 01/26/2026 11:00 AM EDT Office Visit [address] [place] [phone] Michel Wolf MD 703 [facility] 2, [address] [place], [place] [phone] Scheduled Orders Name Type Priority Associated Diagnoses Orde r Schedule OUTSIDE LAB SCAN Lab Ordered: 04/19/2019 documented as of this encounter Visit Diagnoses Not on filedocumented in this encounter Care Teams Elevator Mechanic Relationship Specialty Start Date End Date Suhas Arizmendi DO PCP - General 06/09/99 01/29/24 Suhas Arizmendi DO [facility] [place] [address] PCP - General Family Medicine 01/30/24 documented as of this encounter
--- OUTSIDE RECORDS SUMMARY | 2025-02-21 13:32 | XMS_ITS | Clinical Summary ---
Author Organization [facility] Address [address] [place] [address] Phone Care Team Providers Care Rn Mobile Name Role Phone Suhas Arizmendi Dalton TYLER Primary Care Provider [phone] Allergies Active Allergy Reactions Criticality Noted Date [...] Description 01/14/2025 11:00 AM EDT Office Visit [address] [facility] [address] [place] [address] Shy Wolf MD Nonrheumatic aortic valve stenosis (Primary Dx); 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; Hyperlipidemia, unspecified hyperlipidemia type; PMR (polymyalgia rheumatica) (Multi); Hypothyroidism, unspecified type; BMI 27.0-27.9,adult; Never smoked any substance; Overweight 01/14/2025 Travel 12/22/2024 Results Follow-Up [address] [place] [address] Shaniqua Daniels LPN Transthoracic Echo Complete 12/21/2024 12:29 PM EDT - 12/21/2024 11:59 PM EDT Hospital Encounter [facility] [address] [facility] [address] [place] [address] Aortic valve stenosis, etiology of cardiac valve disease unspecified Discharge Disposition: Home 12/21/2024 Travel 12/07/2024 3:00 PM EDT Office Visit [place] [address] [facility] [address] [place] [address] Jayla Burns, PASTRY DECORATOR-[employer] SYSTEM[employer] ADMINISTRATOR 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 (Primary Dx); BMI 26.0-26.9,adult 12/07/2024 Travel 11/30/2024 Telephone [facility] [address] [facility] [address] [place] [address] Kinjal Angeles RN 11/29/2024 Scanned Document [facility] [address] [place] [address] Scanning, Generic Provider from Last [...] blue cap/uribe label *Check age/dose* 04/17/2022 Novel [id number], preservative-free 05/30/2009 Pneumococcal conjugate vacci ne, 13-valent [...] Info) Description 12/20/2025 10:45 AM EDT Appointment [place] [address] [place] [address] 01/26/2026 11:00 AM EDT Office Visit [address] [address] Shy Wolf MD 3 [facility] 2, [facility] [address] [place] [address] Health Maintenance Due Date Last Done Comments [...] Narrative SYNGO - 12/21/2024 4:50 PM EDT [address], [address], [place] [address] TRANSTHORACIC ECHOCARDIOGRAM REPORT Patient Name: LAVONNE Bahena Physician: [id number] Shy Wolf MD, [facility] Study Date: 12/21/2024 Ordering Provider: [id number] SHY WOLF MRN/PID: [id number] Fellow: Nurse: Date of /Age: 3 1935 / 89 years Director Game: Sheridan Lemus [facility], RVT Gender Assigned at F Additional Staff: : Height: 157.48 cm Admit Date: Weight: 65.77 kg Admission Status: Outpatient BSA / BMI: 1.67 m2 / 26.52 Department Location: [facility] kg/m2 [place] Blood Pressure: 146 /68 mmHg Study Type: TRANSTHORACIC ECHO (TTE) COMPLETE Diagnosis/ICD: Nonrheumatic aortic (valve) stenosis-I35.0 Indication: HTN, Hyperlipidemia, 2/6 Systolic Murmur, Hypothyroid CPT Codes: Echo Complete w Full Doppler-[id number] Study Detail: The following Echo studies were [...] (0.6-0.9m/s) AORTA: Asc Ao Diam 3.69 cm [id number] Shy Wolf MD, [facility] Electronically signed on 12/21/2024 at 4:50:06 PM Final Procedure Note Shy Wolf MD - 12/21/[address], [address] [place] [address] TRANSTHORACIC ECHOCARDIOGRAM REPORT Patient Name: LAVONNE VILLATORO Reading Physician: [id number] Wolf MD,[facility] Study Date: 12/21/2024 Ordering Provider: [id number] CHANA WOLF MRN/PID: [id number] Fellow: Nurse: Date of /Age: 3 1935 / 89 years Director Game: Mary MALDONADO RVT Gender Assigned at F Additional Staff: : Height: 157.48 cm Admit Date: Weight: 65.77 kg Admission Status: Outpatient BSA / BMI: 1.67 m2 / 26.52 Department Location: [facility] kg/m2 [place] Blood Pressure: 146 /68 mmHg Study Type: TRANSTHORACIC ECHO (TTE) COMPLETE Diagnosis/ICD: Nonrheumatic aortic (valve) stenosis-I35.0 Indication: HTN, Hyperlipidemia, 2/6 Systolic Murmur, Hypothyroid CPT Codes: Echo Complete w Full Doppler-[id number] Study Detail: The following Echo studies were [...] (0.6-0.9m/s) AORTA: Asc Ao Diam 3.69 cm [id number] Shy Wolf MD, [facility] Electronically signed on 12/21/2024 at 4:50:06 PM Final us Shy Wolf MD CV ECHO PROCEDURES Final Res ult SYNGO * ECG 12 Lead (12/08/2024 6:10 PM EDT) Narrative Shy Wolf MD - 12/08/2024 6:10 PM EDT ECG revealed normal sinus rhythm, normal ECG us Jayla Burns PASTRY DECORATOR-[employer] SYSTEM[employer] ADMINISTRATOR ECG ORDERABLES Final Res ult from Last 3 Months Insurance MEDICARE [employer]RO[employer] [facility] Care Teams Rn Mobile Relationship Specialty Start Date End Date Suhas Arizmendi DO [address] [place] [address] PCP - General Family Medicine 01/30/24
--- OUTSIDE RECORDS SUMMARY | 2025-02-21 13:32 | XMS_ITS | Encounter Summary ---
Author Organization [facility] Address [address] [place] [address] Phone Care Team Providers Care Oil Inspector Name Role Phone Suhas Arizmendi DO Primary Care Provider [phone] Suhas Arizmendi DO Primary Care Provider [phone] Encounter Details Date Type Department Care Team (Late st Contact Info) Description 12/18/2020 Orders Only [facility] LEGACY [address] [place] [address] Conversion, Onbase Social History Tobacco Use Types [...] Info) Description 12/20/2025 10:45 AM EDT Appointment [address] [place] [address] 01/26/2026 11:00 AM EDT Office Visit [address] [place] [address] Michel Wolf MD 703 [facility] 2, [address] [place] [address] Scheduled Orders Name Type Priority Associated Diagnoses Orde r Schedule OUTSIDE LAB SCAN Lab Ordered: 12/18/2020 OUTSIDE LAB SCAN Lab Ordered: 12/18/2020 documented as of this encounter Visit Diagnoses Not on filedocumented in this encounter Care Teams Oil Inspector Relationship Specialty Start Date End Date Suhas Arizmendi DO PCP - General 06/09/99 01/29/24 Suhas Arizmendi DO [address] [place] [address] PCP - General Family Medicine 01/30/24 documented as of this encounter
--- OUTSIDE RECORDS SUMMARY | 2025-02-21 13:32 | XMS_ITS | Clinical Summary ---
Author Organization [facility] Address [address] [place] [address] Care Team Providers Care Delivery Rep Name Role Phone Suhas Arizmendi DO Unavailable Suhas Arizmendi DO Primary Care Provider [phone] Allergies Active Allergy Reactions Criticality Noted Date [...] once a day 0 03/29/2005 Active VIT [id number] ACID-MAG OX 100 UNIT-2.05 MG TAB Vit [...] (#1) 2025 Insurance MEDICARE RAILROAD Care Teams Delivery Rep Relationship Specialty Start Date End Date Suhas Arizmendi DO [address] [place] [address] PCP - General Family Medicine 07/23/23 Suhas Arizmendi DO [address] [place] [address] Referring Family Medicine 07/23/23
--- OUTSIDE RECORDS SUMMARY | 2025-02-21 13:32 | XMS_ITS | Encounter Summary ---
Author Organization [facility] Address [address] [place] [address] Phone Care Team Providers Care Aquaculturist Name Role Phone Suhas Arizmendi Primary Care Provider [phone] Encounter Details Date Type Department Care Team (Late st Contact Info) Description 11/29/2024 Scanned Document [facility] [address] [place] [phone] Scanning, Generic Provider Social History Tobacco Use [...] Info) Description 12/20/2025 10:45 AM EDT Appointment [address] [place] [address] 01/26/2026 11:00 AM EDT Office Visit [address] [place] [address] Michel Wolf MD 703 [facility] 2, [address] [place] [address] documented as of this encounter Visit Diagnoses Not on filedocumented in this encounter Additional Health Concerns Assessment Noted Time A fall risk assessment has been complete d for the patient 06/19/2023 11:09 AM EST documented as of this encounter Care Teams Aquaculturist Relationship Specialty Start Date End Date Suhas Arizmendi DO [address] [place] [phone] PCP - General Family Medicine 01/30/24 documented as of this encounter
--- OUTSIDE RECORDS SUMMARY | 2025-02-21 13:32 | XMS_ITS | Encounter Summary ---
Author Organization [facility] Address [address] [place] [address] Phone Care Team Providers Care Labor Arbitrator Hearing Office Name Role Phone Suhas Arizmendi DO Primary Care Provider [phone] Suhas Arizmendi DO Primary Care Provider [phone] Encounter Details Date Type Department Care Team (Late st Contact Info) Description 09/03/2023 Scanned Document [facility] [address] [place] [address] Scanning, Generic Provider Social History Tobacco Use [...] Info) Description 12/20/2025 10:45 AM EDT Appointment [address] [place] [address] 01/26/2026 11:00 AM EDT Office Visit [address] [place] [address] Michel Wolf MD 703 [facility] 2, [facility] [address] [place] [address] documented as of this encounter Visit Diagnoses Not on filedocumented in this encounter Additional Health Concerns Assessment Noted Time A fall risk assessment has been complete d for the patient 06/19/2023 11:09 AM EST documented as of this encounter Care Teams Labor Arbitrator Hearing Office Relationship Specialty Start Date End Date Suhas Arizmendi DO PCP - General 06/09/99 01/29/24 Suhas Arizmendi DO [facility] [address] [place] [id number] PCP - General Family Medicine 01/30/24 documented as of this encounter
--- OUTSIDE RECORDS SUMMARY | 2025-02-21 13:32 | XMS_ITS | Encounter Summary ---
Author Organization [facility] Address [address] [place] [address] Phone Care Team Providers Care Motorbike Courier Name Role Phone Suhas Arizmendi DO Primary Care Provider [phone] Suhas Arizmendi DO Primary Care Provider [phone] Encounter Details Date Type Department Care Team (Late st Contact Info) Description 11/08/2019 Orders Only [facility] LEGACY [address] [place] [address] Conversion, Onbase Social History Tobacco Use Types [...] Info) Description 12/20/2025 10:45 AM EDT Appointment [address] [place] [address] 01/26/2026 11:00 AM EDT Office Visit [address] [place] [address] Michel Wolf MD 703 [facility] 2, [address] [place], [place] [address] Scheduled Orders Name Type Priority Associated Diagnoses Orde r Schedule OUTSIDE LAB SCAN Lab Ordered: 11/08/2019 documented as of this encounter Visit Diagnoses Not on filedocumented in this encounter Care Teams Motorbike Courier Relationship Specialty Start Date End Date Suhas Arizmendi DO PCP - General 06/09/99 01/29/24 Suhas Arizmendi DO [facility] [place] [address] PCP - General Family Medicine 01/30/24 documented as of this encounter
--- NOTE | 2025-02-21 15:12 | PM.CN ---
Consult Note: HPI Data of Consult Patient: known to practice within the last 3 years Consult date: 02/21/25 Requesting Physician: Gloria Weston MD Primary Care Provider: Suhas Arizmendi DO Consult Narrative Reason for consult: low back, leg pain Narrative: 89yof who presents for spinal cord stim lead pull. notes 80% relief with trial, states was able to do multiple activities at home without pain that she previously could not do without significant pain. would like to move forward with implant. cc:: CC: Gloria Weston MD Review of Systems ROS Status of ROS 10 or more systems reviewed and unremarkable except as noted in history and below [facility] Medical History 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 ?I10 - Essential (primary) hypertension (ICD-10) Lumbar stenosis with neurogenic claudication ?M48.062 - Spinal stenosis, lumbar region with neurogenic claudication (ICD-10) Back pain ?M54.9 - Dorsalgia, unspecified (ICD-10) Shoulder pain ?M25.519 - Pain in unspecified shoulder (ICD-10) Seizures (1987) ?R56.9 - Unspecified convulsions (ICD-10) Heartburn ?R12 - Heartburn (ICD-10) Cataract ?H26.9 - Unspecified cataract (ICD-10) Hepatic lesion ?K76.9 - Liver disease, unspecified (ICD-10) Insomnia ?G47.00 - Insomnia, unspecified (ICD-10) Lung density on x-ray ?J98.4 - Other disorders of lung (ICD-10) Multinodular thyroid ?E04.2 - Nontoxic multinodular goiter (ICD-10) Hypothyroidism (acquired) ?E03.9 - Hypothyroidism, unspecified (ICD-10) Hyperlipidemia ?E78.5 - Hyperlipidemia, unspecified (ICD-10) Aortic stenosis ?I35.0 - Nonrheumatic aortic (valve) stenosis (ICD-10) Polymyalgia rheumatica ?M35.3 - Polymyalgia rheumatica (ICD-10) Hyperthyroidism ?E05.90 - Thyrotoxicosis, unspecified without thyrotoxic crisis or storm (ICD-10) Heart murmur ?R01.1 - Cardiac murmur, unspecified (ICD-10) HTN (hypertension) ?I10 - Essential (primary) hypertension (ICD-10) Surgical History S/P epidural steroid injection ?Z92.241 - Personal history of systemic steroid therapy (ICD-10) History of cataract extraction with lens replacement H/O excision of mass ?Z98.890 - Other specified postprocedural states (ICD-10) H/O colonoscopy ?Z98.890 - Other specified postprocedural states (ICD-10) 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 - Postprocedural hypothyroidism (ICD-10) Hx of cholecystectomy ?Z90.49 - Acquired absence of other specified parts of digestive tract (ICD-10) History of ovarian cystectomy ?Z98.890 - Other specified postprocedural states (ICD-10) ?Z87.42 - Personal history of other diseases of the female genital tract (ICD-10) History of appendectomy ?Z90.49 - Acquired absence of other specified parts of digestive tract (ICD-10) Family History Other Family history of DVT Family history of aneurysm Family history of cancer Family history of diabetes mellitus Family history of heart disease Social History Within the past year, how often did you have a drink containing alcohol: monthly or less Smoking status: Never smoker Non-prescribed substance use: denies use Highest level of school completed/degree received: high school graduate Little interest or pleasure in doing things: not at all Feeling down, depressed, or hopeless: not at all Meds Home Medications and Allergies Home Medications ?Medication ?Instructions ?Recorded ?Confirmed ?Type aspirin 81 mg capsule 81 mg PO DAILY 08/25/23 02/14/25 History carvedilol 6.25 mg tablet 6.25 mg PO Q12H 08/25/23 02/14/25 History levothyroxine 100 mcg tablet 100 mcg PO DAILY 08/25/23 02/14/25 History lorazepam 0.5 mg tablet 0.5 mg PO Q8H PRN anxiety 10/25/24 02/14/25 History acetaminophen 650 mg 1,300 mg PO Q12H PRN pain 11/29/24 02/14/25 History tablet,extended release amlodipine 5 mg tablet 5 mg PO DAILY 11/29/24 02/14/25 History losartan 100 1 tab PO DAILY 11/29/24 02/14/25 History mg-hydrochlorothiazide 25 mg tablet multivitamin (Daily Multi-Vitamin 1 tab PO DAILY 11/29/24 02/14/25 History tablet) prednisone 10 mg tablet 10 mg PO DAILY 11/29/24 02/14/25 History gabapentin 300 mg capsule 300 mg PO Q8H 02/08/25 02/14/25 History clindamycin HCl 300 mg capsule 300 mg PO BID #14 caps 02/14/25 Rx Allergies Allergy/AdvReac Type Severity Reaction Status Date / Time amoxicillin Allergy Mild Rash Verified 02/14/25 07:55 divalproex sodium (From Allergy Unknown hair loss Verified 02/14/25 07:55 Depakote) hydrocodone Allergy Unknown Rash Verified 02/14/25 07:55 phenytoin (From Dilantin) Allergy Unknown Rash Verified 02/14/25 07:55 alendronate sodium (From AdvReac eye pain Verified 02/14/25 07:55 Fosamax) Exam Narrative Exam Narrative: Psych-alert and oriented x 3. Attentive and appropriate, constitutionally normal, displays normal mood and affect per situation.? There are no obvious deficits in memory, reasoning, or intellect.? Skin-no obvious rashes, bruising, erythema noted to the patient's area of pain. Extremities- extremities are warm with minimal edema and palpable pulses. Lumbar-no significant tenderness to palpation noted in the lumbar spine and paraspinal musculature.? Pain is elicited with extension, and lateral rotation of the lumbar spine. Range of motion is slightly diminished with these motions due to pain.? Coordination remains intact.? Gait remains non-antalgic. Assessment and Plan Assessment and Plan (1) Lumbar spondylosis: (2) Lumbar stenosis with neurogenic claudication: Plan 89yof who presents for spinal cord stim trial lead pull. endorses significant relief, as noted above. at this point, will proceed with spinal cord stim implant. all questions answered. leads were removed with tips intact. insertion site was clean and dry, no signs of infection.
--- OUTSIDE RECORDS SUMMARY | 2025-02-21 17:49 | XMS_ITS | CCD ---
Author Organization [facility] CliniSynj Care Team Providers Care Crowning Inspector Name Role Phone Suhas Garrett Unavailable Suhas Garrett Unavailable Unavailable Unavailable MAYO CARBAJAL Consulting Unavailable TAMI, DR BAIRD Primary Care Unavailable WALT VELIZ Attending Unavailable WALT VELIZ Admitting Unavailable Tami, Dr. Suhas Liang Primary Care Unavaila ble Wolf, Dr. Michel Agosto Referring Radha vailable Wolf, Dr. Michel Agosto Attending Radha vailable Wolf, Dr. Michel Agosto Attending Radha vailable Kunadan, Dr. Suhas Liang Primary Care Unavaila ble Wolf, Dr. Michel Agosto Referring Radha vailable Kunadan, Dr. Suhas Liang Primary Care Unavaila ble MICHEL WOLF Attending Unavail able Suhas Garrett DO Primary Care Provider [phone] Suhas Garrett DO Primary Care Provider Suhas Garrett Primary Care Unavailable Suhas Garrett Admitting Unavailable Suhas Garrett Attending Unavailable KunSuhas arellano Attending Unavailable Suhas Garrett Primary Care Unavailable KunsSuhas Admitting Unavailable KunSuhas arellano Attending Unavailable Suhas Garrett Primary Care Unavailable KunsSuhas Admitting Unavailable KunsSuhas Attending Unavailable Suhas Garrett Primary Care Unavailable GaelsSuhas Admitting Unavailable Kuns Suhas TYLER Primary Care Provider [phone] MICHEL WOLF Referring Unavailable SUHAS GARRETT Primary Care Unavailable MICHEL WOLF Referring Unavailable SUHAS GARRETT Primary Care Unavailable MICHEL WOLF Attending Unavailable MICHEL WOLF Referring Unavailable SUHAS GARRETT Primary Care Unavailable MICHEL WOLF Attending Unavailable MICHEL WOLF Referring Unavailable SUHAS GARRETT Primary Care Unavailable REUBEN BURNS Attending Unavailable SUHAS GARRETT Primary Care Unavailable Trista FRIEDMAN, Gloria Gautam Attending Unavailable Gieditis , Andshabana Gautam Attending Unavailable Giedbridgette FRIEDMAN, Gloria Gautam Attending Unavailable Gieditis , Andrius Gautam Attending Unavailable Allergies Allergy Classification Reported Allergen(s) Allergy Type Date of Onset Reaction(s) Facility (20 sources) Alendronate; Translations: [Fosamax] Drug Allergy 3 Unknown, Other [facility] Repository (20 sources) Amoxicillin; Translations: [amoxicillin] Drug Allergy 9 hives [facility] Learnerator Other (20 sources) Phenytoin; Translations: [Dilantin CAPS] Drug Allergy 3 Rash [facility] Learnerator Other (20 sources) Valproate; Translations: [Depakote ER TB24] Drug Allergy Unknown [facility] Learnerator Other (1 source) Alendronate Drug Allergy [facility] Repository (1 source) Amoxicillin Drug Allergy [facility] Repository (1 source) Phenytoin Drug Allergy [facility] Repository (1 source) Valproate Drug Allergy [facility] Repository (20 sources) Acetaminophen / HYDROcodone Drug Allergy elevated liver enzymes [facility] Learnerator Other (6 sources) Alendronate Drug Allergy 3 Unknown, Other [facility] (8 sources) HYDROcodone; Translations: [HYDROCODONE] Drug Allergy 4 GI Upset [facility] Work Phone: (8 sources) Valproate; Translations: [VALPROIC ACID] Drug Allergy 3 Unknown [facility] Work Phone: (1 source) Acetaminophen Drug Allergy 4 [facility] Repository (1 source) Alendronate Drug Allergy 4 [facility] Repository (1 source) Amoxicillin Drug Allergy 4 [facility] Repository (1 source) HYDROcodone Drug Allergy 4 [facility] Repository (1 source) Phenytoin Drug Allergy 4 [facility] Repository (1 source) Valproate Drug Allergy 4 [facility] Repository (5 sources) Valproate; Translations: [DIVALPROEX] Drug Allergy 5 [facility] Work Phone: Medications Current Medications Medication Drug [...] tablet by mouth once daily. 0 Active Cascade 3 1000 MG (20 sources) take 1 capsule by mouth once daily Cascade 3 1000 MG 1 capsule with a meal Orally Once a day Active predniSONE 10 mg oral tablet (20 sources) Start: 12-09-2024 take 1 tablet by mouth once daily predniSONE (Deltasone) 10 mg tablet Take 1 tablet (10 mg) by mouth once daily. 12/09/2024 Active Start: 07-05-2023 take 2 tablets by mo [facility] once daily predniSONE 10 MG 2 [...] take 1 capsule by mouth once daily Cascade-3 Fish Oil 1000 MG Oral Capsule TAKE 1 CAPSULES BY MOUTH DAILY Quantity: 360 Refills: 0 Ordered: 18-Marcelo-2023 DO Active Fish Oils (4 sources) End: [...] 0 Refills: 0 Ordered: 13-Dec-2021 DO Active Cascade 3 500 CAPS (4 sources) Cascade 3 500 CAPS TAKE 1 CAPSULE Daily [...] Coronary arteriosclerosis; 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 [place] coronary artery without angina pectoris] Onset: 09-03-2023 [...] fracture] Chronic Other aftercare (1 source) Other intermediate designer (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; Translations: [OTH 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 TUTOR CURRENT DRUG THERAPY] Onset: 02-22-2022 Episodic Other [...] Interpretation Reference Range Facility TRANSTHORACIC ECHO (TTE) [facility] 12-21-2024 TRANSTHORACIC ECHO (TTE) [address], [address] [place] [address] TRANSTHORACIC ECHOCARDIOGRAM REPORT Patient Name: LAVONNE Bahena Physician: [id number] Michel Wolf MD, [facility] Study Date: 12/21/2024 Ordering Provider: [id number] MICHEL WOLF MRN/PID: [id number] Fellow: Nurse: Date of /Age: 3 1935 / 89 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: Sheridan Lemus RDCS, RVT Gender Assigned at F Additional Staff: : Height: 157.48 cm Admit Date: Weight: 65.77 kg Admission Status: Outpatient BSA / BMI: 1.67 m2 / 26.52 Department Location: [facility] Heart kg/m2 [place] Blood Pressure: 146 /68 mmHg Study Type: TRANSTHORACIC ECHO (TTE) COMPLETE Diagnosis/ICD: Nonrheumatic aortic (valve) stenosis-I35.0 Indication: HTN, Hyperlipidemia, 2/6 Systolic Murmur, Hypothyroid CPT Codes: Echo Complete w Full Doppler-[id number] Study Detail: The following Echo studies were [...] AoV Mean P.0 mmHg (1.7-11.5mmHg) LVOT Max Nadya: 0.99 m/s (<=1.1m/s) AoV VTI: 92.68 cm (18-25cm) LVOT VTI: 29.77 cm LVOT Diameter: 1.89 cm (1.8-2.4cm) AoV Area, VTI: 0.90 cm2 (2.5-5.5cm2) AoV Area,Vmax: 0.85 cm (more content not included)... Normal [facility] US Heart Transthoracicon Aortic Valve Area by Continuity of Peak Velocity 0.85 cm2 [facility] Work Phone: Aortic Valve Area by Continuity of VTI 0.9 cm2 [facility] Work Phone: AV mn grad 23 mmHg [facility] Work Phone: AV pk grad 43 mmHg [facility] Work Phone: AV pk nadya 3.27 m/s [facility] Work Phone: LA vol index A/L 43.4 ml/m2 [facility] Work Phone: LV A4C EF 76.9 [facility] Work Phone: LV Biplane EF 71 % [facility] Work Phone: LV EF 68 % [facility] Work Phone: LVIDd 4.03 cm [facility] Work Phone: LVOT diam 1.89 cm [facility] Work Phone: MV avg E/e' ratio 15.93 [facility] Work Phone: MV E/A ratio 1 [facility] Work Phone: RV free wall pk S' 11.98 cm/s [facility] Work Phone: RVSP 34 mmHg [facility] Work Phone: Tricuspid annular plane systolic excursion 2.4 cm [facility] Work Phone: [address], [place] [address] TRANSTHORACIC ECHOCARDIOGRAM REPORT Patient Name: LAVONNE VILLATORO Reading Physician: [id number] Michel Wolf MD, [facility] Study Date: 12/21/2024 Ordering Provider: [id number] MICHEL WOLF MRN/PID: [id number] Fellow: Nurse: Date of /Age: 3 1935 / 89 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, RVT Gender Assigned at F Additional Staff: : Height: 157.48 cm Admit Date: Weight: 65.77 kg Admission Status: Outpatient BSA / BMI: 1.67 m2 / 26.52 Department Location: [address] Blood Pressure: 146 /68 mmHg Study Type: TRANSTHORACIC ECHO (TTE) COMPLETE Diagnosis/ICD: Nonrheumatic aortic (valve) stenosis-I35.0 Indication: HTN, Hyperlipidemia, 2/6 Systolic Murmur, Hypothyroid CPT Codes: Echo Complete w Full Doppler-[id number] Study Detail: The following Echo studies were [...] AoV Mean P.0 mmHg (1.7-11.5mmHg) LVOT Max Nadya: 0.99 m/s (<=1.1m/s) AoV VTI: 92.68 cm (18-25cm) LVOT VTI: (more content not included)... [facility] Work Phone: [facility] Work Phone: Complete Blood Count Auto Di ffon 07-28-2024 Basophils (Bld) [#/Vol] 0.1 10*3/uL Normal 0.0-0.2 [facility] Comment on above: Performed By: #### V [id number], CMP, TSH3, LIPID, CBC, T4F, ESR #### [address] Basophils/100 WBC (Bld) 1.1 % Normal . [facility] Comment on above: Performed By: #### V [id number], CMP, TSH3, LIPID, CBC, T4F, ESR #### [address] Eosinophils (Bld) [#/Vol] 0.1 10*3/uL Normal 0.0-0.45 [facility] Comment on above: Performed By: #### V [id number], CMP, TSH3, LIPID, CBC, T4F, ESR #### [address] Eosinophils/100 WBC (Bld) 2.2 % Normal . [facility] Comment on above: Performed By: #### V [id number], CMP, TSH3, LIPID, CBC, T4F, ESR #### [address] Erythrocyte distribution width (RBC) [Ratio] 13.5 % Normal 11.9-15.3 [facility] Comment on above: Performed By: #### V [id number], CMP, TSH3, LIPID, CBC, T4F, ESR #### [address] Hematocrit (Bld) [Volume fraction] 37.9 % Normal 34.0-46.4 [facility] Comment on above: Performed By: #### V [id number], CMP, TSH3, LIPID, CBC, T4F, ESR #### [address] Hemoglobin (Bld) [Mass/Vol] 12.9 g/dL Normal 11.8-15.4 [facility] Comment on above: Performed By: #### V [id number], CMP, TSH3, LIPID, CBC, T4F, ESR #### [address] Lymphocytes (Bld) [#/Vol] 2.2 10*3/uL Normal 1.00-4.8 [facility] Comment on above: Performed By: #### V [id number], CMP, TSH3, LIPID, CBC, T4F, ESR #### [address] Lymphocytes/100 WBC (Bld) 34.3 % Normal . [facility] Comment on above: Performed By: #### V [id number], CMP, TSH3, LIPID, CBC, T4F, ESR #### [address] MCH (RBC) [Entitic mass] 33.5 pg Normal 24.7-34.3 [facility] Comment on above: Performed By: #### V [id number], CMP, TSH3, LIPID, CBC, T4F, ESR #### [address] MCV (RBC) [Entitic vol] 98.4 fL Normal 80-100 [facility] Comment on above: Performed By: #### V [id number], CMP, TSH3, LIPID, CBC, T4F, ESR #### [address] Mean Corpuscular HGB Conc 34.1 g/dL Normal 32.0-35.0 [facility] Comment on above: Performed By: #### V [id number], CMP, TSH3, LIPID, CBC, T4F, ESR #### [address] Monocytes (Bld) [#/Vol] 0.6 10*3/uL Normal 0.0-0.8 [facility] Comment on above: Performed By: #### V [id number], CMP, TSH3, LIPID, CBC, T4F, ESR #### [address] Monocytes/100 WBC (Bld) 9.8 % Normal . [facility] Comment on above: Performed By: #### V [id number], CMP, TSH3, LIPID, CBC, T4F, ESR #### [address] Neutrophils (Bld) [#/Vol] 3.4 10*3/uL Normal 1.8-7.7 [facility] Comment on above: Performed By: #### V [id number], CMP, TSH3, LIPID, CBC, T4F, ESR #### [address] Neutrophils/100 WBC (Bld) 52.6 % Normal . [facility] Comment on above: Performed By: #### V [id number], CMP, TSH3, LIPID, CBC, T4F, ESR #### [address] NRBC% 0.3 /100{WBC} Normal 0-0.5 [facility] Comment on above: Performed By: #### V [id number], CMP, TSH3, LIPID, CBC, T4F, ESR #### [address] Platelet mean volume (Bld) [Entitic vol] 9.3 fL Normal 6.3-10.7 [facility] Comment on above: Performed By: #### V [id number], CMP, TSH3, LIPID, CBC, T4F, ESR #### [address] Platelets (Bld) [#/Vol] 208 10*3/uL Normal 150-450 [facility] Comment on above: Performed By: #### V [id number], CMP, TSH3, LIPID, CBC, T4F, ESR #### [address] RBC (Bld) [#/Vol] 3.85 10*6/uL Normal 3.60-5.[address] [facility] Comment on above: Performed By: #### V [id number], CMP, TSH3, LIPID, CBC, T4F, ESR #### [address] WBC (Bld) [#/Vol] 6.6 10*3/uL Normal 3.8-11.6 [facility] Comment on above: Performed By: #### V [id number], CMP, TSH3, LIPID, CBC, T4F, ESR #### [address] Comprehensive Metabolic Pane nory 07-28-2024 Albumin [Mass/Vol] 3.7 g/dL Normal 3.5-5.7 [facility] Comment on above: Performed By: #### V [id number], CMP, TSH3, LIPID, CBC, T4F, ESR #### [address] Albumin/Globulin [Mass ratio] 1.9 {ratio} Normal [facility] Comment on above: Performed By: #### V [id number], CMP, TSH3, LIPID, CBC, T4F, ESR #### [address] ALP [Catalytic activity/Vol] 62 U/L Normal 34-104 [facility] Comment on above: Performed By: #### V [id number], CMP, TSH3, LIPID, CBC, T4F, ESR #### [address] ALT [Catalytic activity/Vol] 21 U/L Normal 7-52 [facility] Comment on above: Performed By: #### V [id number], CMP, TSH3, LIPID, CBC, T4F, ESR #### [address] Anion gap [Moles/Vol] 8.2 mmol/L Normal 6.0-15.0 [facility] Comment on above: Performed By: #### V [id number], CMP, TSH3, LIPID, CBC, T4F, ESR #### [address] AST [Catalytic activity/Vol] 19 U/L Normal 13-39 [facility] Comment on above: Performed By: #### V [id number], CMP, TSH3, LIPID, CBC, T4F, ESR #### [address] Bilirubin [Mass/Vol] 0.7 mg/dL Normal 0.3-1.0 [facility] Comment on above: Performed By: #### V [id number], CMP, TSH3, LIPID, CBC, T4F, ESR #### [address] Calcium [Mass/Vol] 9.7 mg/dL Normal 8.6-10.3 [facility] Comment on above: Performed By: #### V [id number], CMP, TSH3, LIPID, CBC, T4F, ESR #### [address] Chloride [Moles/Vol] 107 mmol/L Normal 98-107 [facility] Comment on above: Performed By: #### V [id number], CMP, TSH3, LIPID, CBC, T4F, ESR #### [address] CO2 [Moles/Vol] 31.5 mmol/L High 21.0-31.0 [facility] Comment on above: Performed By: #### V [id number], CMP, TSH3, LIPID, CBC, T4F, ESR #### [address] Creatinine [Mass/Vol] 0.67 mg/dL Normal 0.60-1.20 [facility] Comment on above: Performed By: #### V [id number], CMP, TSH3, LIPID, CBC, T4F, ESR #### [address] GFR/1.73 sq M.predicted MDRD (S/P/Bld) [Vol rate/Area] mL/min/{1.73_m2} Normal [facility] Comment on above: Performed By: #### V [id number], CMP, TSH3, LIPID, CBC, T4F, ESR #### [address] Globulin (S) [Mass/Vol] 1.9 g/dL Normal [facility] Comment on above: Performed By: #### V [id number], CMP, TSH3, LIPID, CBC, T4F, ESR #### [address] Glucose [Mass/Vol] 89 mg/dL Normal 70-100 [facility] Comment on above: Result Comment: [facility] Glucose Reference Range is dependent on time and content of last meal. Glucose of more than 200 mg/dL in a nonstressed, ambulatory subject supports the diagnosis of Diabetes Mellitus. ADA recommended reference range Performed By: #### V [id number], CMP, TSH3, LIPID, CBC, T4F, ESR #### [address] Potassium [Moles/Vol] 3.7 mmol/L Normal 3.5-5.1 [facility] Comment on above: Performed By: #### V [id number], CMP, TSH3, LIPID, CBC, T4F, ESR #### [address] Protein [Mass/Vol] 5.6 g/dL Low 6.4-8.9 [facility] Comment on above: Performed By: #### V [id number], CMP, TSH3, LIPID, CBC, T4F, ESR #### [address] Sodium [Moles/Vol] 143 mmol/L Normal 136-145 [facility] Comment on above: Performed By: #### V [id number], CMP, TSH3, LIPID, CBC, T4F, ESR #### [address] Urea nitrogen [Mass/Vol] 19 mg/dL Normal 7-25 [facility] Comment on above: Performed By: #### V [id number], CMP, TSH3, LIPID, CBC, T4F, ESR #### [address] Erythrocyte Sedimentation Ra amy 07-28-2024 ESR (Bld) [Velocity] 9 mm/h Normal 0-29 [facility] Comment on above: Result Comment: PERF ORMED BY: [place] [address] PATHOLOGIST MACHINE ETCHER JASIEL HURTADO M.D. Performed By: #### V [id number], CMP, TSH3, LIPID, CBC, T4F, ESR #### [address] Free T4 (Free Thyroxine)on 0 07-28-2024 Free T4 [Mass/Vol] 0.74 ng/dL Normal 0.61-1.12 [facility] Comment on above: Performed By: #### L IPID, TSH3, CMP, CBC #### [address] Lipid Panelon 07-28-2024 Cholesterol [Mass/Vol] 228 mg/dL High 140-200 [facility] Comment on above: Result Comment: Chol less than 200 mg/dl low risk Chol 201-239 mg/dl borderline risk Chol 240 mg/dl and greater high risk Performed By: #### V [id number], CMP, TSH3, LIPID, CBC, T4F, ESR #### [address] Cholesterol in HDL [Mass/Vol] 96 mg/dL High 23-92 [facility] Comment on above: Result Comment: HDL CHOL ATP-III CLASSIFICATION Cardiovascular Risk HDL > or equal to 60 mg/dL LOW HDL < 40 mg/dL HIGH Performed By: #### V [id number], CMP, TSH3, LIPID, CBC, T4F, ESR #### [facility] [address] [place] [address] [facility] Cholesterol.total/Ch olesterol in HDL [Mass ratio] 2.4 {ratio} Normal <5.0 [facility] Comment on above: Performed By: #### V [id number], CMP, TSH3, LIPID, CBC, T4F, ESR #### [facility] [address] LDL Cholesterol,Calculat ed 121 mg/dL High 0-100 [facility] Comment on above: Result Comment: LDL ATP III CLASSIFICATION LDL less than 100 mg/dL Optimal LDL 100-129 mg/dL Near or above optimal LDL 130-159 mg/dL Borderline high LDL 160-189 mg/dL High LDL greater than 189 mg/dL Very high Performed By: #### V [id number], CMP, TSH3, LIPID, CBC, T4F, ESR #### [facility] [address] [place] [id number] [facility] Triglyceride w/Reflex 57 mg/dL Normal 0-149 [facility] Comment on above: Result Comment: TRIG ATP III CLASSIFICATION TRIG less than 150 mg/dL Normal TRIG 150-199 mg/dL Borderline high TRIG 200-500 mg/dL High TRIG greater than 500 mg/dL Very high Standard traceable to the Center for Disease Conrtrol and Prevention (CDC) test method. Performed By: #### V [id number], CMP, TSH3, LIPID, CBC, T4F, ESR #### [facility] [address] [place] [address] [facility] VLDL CHOLESTEROL 11 mg/dL Normal [facility] Comment on above: Performed By: #### V [id number], CMP, TSH3, LIPID, CBC, T4F, ESR #### [facility] [address] [place] [address] [facility] Thyroid Stimulating Hormoneo n 07-28-2024 TSH Qn 6.38 m[IU]/L High 0.45-5.33 [facility] Comment on above: Performed By: #### L IPID, TSH3, CMP, CBC #### [place] [id number] [facility] Vitamin D 25 Hydroxy Totalon 07-28-2024 Vitamin D 25 Hydroxy Total 28.4 ng/mL Low 30-100 [facility] Comment on above: Result Comment: ANJU MIN D STATUS 25(OH)VITAMIN D RANGE (ng/mL) Deficient <20 Insufficient 20 to <30 Sufficient 30 to 100 Reference: Yolanda MF,Nathan NC, Keshawn FRANCO, et al. Evaluation,treatment, and prevention of vitamin D deficiency; an Endocrine Society clinical practice guideline. JCEM. 2010; 96(7):1911-30. PERFORMED BY: [place] [address] PATHOLOGIST MACHINE ETCHER JASIEL HURTADO M.D. Performed By: #### L IPID, TSH3, CMP, CBC #### [place] [id number] [facility] XR scapula LT*on 05-25-2024 XR scapula LT* [facility] Main [place] [address] [place] [address] XRay Report Signed Patient: Lavonne Villatoro MR#: [id number] : 1935 Acct:[id number] Age/Sex: 88 / F ADM Date: 05/25/24 Loc: XD Room: Type: [facility] Attending Dr: Suhas Garrett DO Copies to: Suhas Garrett DO Ordering Provider: Suhas Garrett DO Date of Service: 05/25/24 XR/XR shoulder LT min 2V*: M25.519 - Pain in unspecified shoulder ([id number]) XR/XR scapula LT*: M25.519 - Pain in [...] Casandra Gómez M.D.05/25/2024 4:45 PM Dictation Location: [place] [address] Transcribed By: [facility] 05/25/241644 Dictated By: Casandra Gómez MD 05/25/241641 Signed By: 05/25/241644 Normal [facility] TRANSTHORACIC ECHO (TTE) [facility] 02-11-2024 TRANSTHORACIC ECHO (TTE) COMPLETE [address], [address] [place] [address] TRANSTHORACIC ECHOCARDIOGRAM REPORT Patient Name: LAVONNE VILLATORO Reading Physician: [id number] Michel Wolf MD, [facility] Study Date: 02/11/2024 Ordering Provider: [id number] MICHEL WOLF MRN/PID: [id number] Fellow: Nurse: Date of /Age: 3 1935 / 88 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: LLIIA Gender: F Additional Staff: Height: 157.48 cm Admit Date: Weight: 69.40 kg Admission Status: BSA / BMI: 1.71 m2 / 27.98 kg/m2 Department Location: [facility] Blood Pressure: 116 /76 mmHg Study Type: TRANSTHORACIC ECHO (TTE) COMPLETE Diagnosis/ICD: Nonrheumatic aortic (valve) stenosis-I35.0 Indication: HTN, Hyperlipidemia, 3/6 Systolic Murmur, Hypothryoid, Overweight CPT Codes: Echo Complete w Full Doppler-[id number] Study Detail: The following Echo studies were [...] AoV Mean P.0 mmHg (1.7-11.5mmHg) LVOT Max Nadya: 0.77 m/s (<=1.1m/s) AoV VTI: 98.20 cm (18-25cm) LVOT VTI: 21.40 cm LVOT Diameter: 1.90 cm (1.8-2.4cm) AoV Area, VTI: 0.62 cm2 (2.5-5.5cm2) AoV Area,Vmax: 0.60 cm2 (2.5-4.5cm2) AoV Dimensionless Index: 0.22 TRICUSPID VALVE/RVSP: Normal Ranges: Peak TR Velocity: 3.05 m/s RV Syst Pressure: 40.2 mmHg (< 30mmHg) PULMONIC VALVE: Normal Ranges: PV Max Nadya: 0.9 m/s (0.6-0.9m/s) PV Max P.0 mmHg PIEDV: 2.23 m/s PADP: 22.9 mmHg [id number] Michel Wolf MD, [facility] Electronical (more content not included)... [facility] US carotid doppler BIon 05-0 US carotid doppler BI [facility] Main [facility] [address] [place] [address] Ultrasound Report Signed Patient: Lavonne Villatoro MR#: [id number] : 1935 Acct:[id number] Age/Sex: 88 / F ADM Date: 10/14/23 Loc: Room: Type: [facility] Attending Dr: Suhas Garrett DO Ordering [...] Hola Wynn M.D.10/15/2023 11:47 AM Dictation Location: [facility] Tech: Jackie Pal Transcribed By: KIRILL 10/15/23 1147 Dictated By: Hola Wynn MD 10/15/23 1145 Signed By: 10/15/23 1147 Normal [facility] Complete Blood Count Auto Di ffon 09-03-2023 Basophils (Bld) [#/Vol] 0.0 10*3/uL Normal 0.0-0.2 [facility] Comment on above: Result Comment: PERF ORMED BY: [place] [address] PATHOLOGIST MACHINE ETCHER JODY SOLANO M.D. Performed By: #### L IPID, TSH3, CMP, CBC #### [address] Basophils/100 WBC (Bld) 0.7 % Normal . [facility] Comment on above: Performed By: #### L IPID, TSH3, CMP, CBC #### [facility] [address] [place] [address] [place] Eosinophils (Bld) [#/Vol] 0.1 10*3/uL Normal 0.0-0.45 [facility] Comment on above: Performed By: #### L IPID, TSH3, CMP, CBC #### [place] [address] [place] Eosinophils/100 WBC (Bld) 1.6 % Normal . [facility] Comment on above: Performed By: #### L IPID, TSH3, CMP, CBC #### [address] Erythrocyte distribution width (RBC) [Ratio] 14.8 % Normal 11.9-15.3 [facility] Comment on above: Performed By: #### L IPID, TSH3, CMP, CBC #### [address] Hematocrit (Bld) [Volume fraction] 39.9 % Normal 34.0-46.4 [facility] Comment on above: Performed By: #### L IPID, TSH3, CMP, CBC #### [address] Hemoglobin (Bld) [Mass/Vol] 13.2 g/dL Normal 11.8-15.4 [facility] Comment on above: Performed By: #### L IPID, TSH3, CMP, CBC #### [address] Lymphocytes (Bld) [#/Vol] 2.6 10*3/uL Normal 1.00-4.8 [facility] Comment on above: Performed By: #### L IPID, TSH3, CMP, CBC #### [address] Lymphocytes/100 WBC (Bld) 43.5 % Normal . [facility] Comment on above: Performed By: #### L IPID, TSH3, CMP, CBC #### [address] MCH (RBC) [Entitic mass] 33.2 pg Normal 24.7-34.3 [facility] Comment on above: Performed By: #### L IPID, TSH3, CMP, CBC #### [address] MCV (RBC) [Entitic vol] 100.5 fL High 80-100 [facility] Comment on above: Performed By: #### L IPID, TSH3, CMP, CBC #### [address] Mean Corpuscular HGB Conc 33.0 g/dL Normal 32.0-35.0 [facility] Comment on above: Performed By: #### L IPID, TSH3, CMP, CBC #### [address] Monocytes (Bld) [#/Vol] 0.6 10*3/uL Normal 0.0-0.8 [facility] Comment on above: Performed By: #### L IPID, TSH3, CMP, CBC #### [address] Monocytes/100 WBC (Bld) 9.7 % Normal . [facility] Comment on above: Performed By: #### L IPID, TSH3, CMP, CBC #### [address] Neutrophils (Bld) [#/Vol] 2.7 10*3/uL Normal 1.8-7.7 [facility] Comment on above: Performed By: #### L IPID, TSH3, CMP, CBC #### [address] Neutrophils/100 WBC (Bld) 44.5 % Normal . [facility] Comment on above: Performed By: #### L IPID, TSH3, CMP, CBC #### [address] NRBC% 0.2 /100{WBC} Normal 0-0.5 [facility] Comment on above: Performed By: #### L IPID, TSH3, CMP, CBC #### [place] [address] [place] Platelet mean volume (Bld) [Entitic vol] 9.2 fL Normal 6.3-10.7 [facility] Comment on above: Performed By: #### L IPID, TSH3, CMP, CBC #### [place] [address] [place] Platelets (Bld) [#/Vol] 229 10*3/uL Normal 150-450 [facility] Comment on above: Performed By: #### L IPID, TSH3, CMP, CBC #### [address] RBC (Bld) [#/Vol] 3.98 10*6/uL Normal 3.60-5.[address] [facility] Comment on above: Performed By: #### L IPID, TSH3, CMP, CBC #### [address] WBC (Bld) [#/Vol] 6.0 10*3/uL Normal 3.8-11.6 [facility] Comment on above: Performed By: #### L IPID, TSH3, CMP, CBC #### [address] Comprehensive Metabolic Pane nory 09-03-2023 Albumin [Mass/Vol] 3.8 g/dL Normal 3.5-5.7 [facility] Comment on above: Performed By: #### L IPID, TSH3, CMP, CBC #### [address] Albumin/Globulin [Mass ratio] 1.7 {ratio} Normal [facility] Comment on above: Performed By: #### L IPID, TSH3, CMP, CBC #### [address] ALP [Catalytic activity/Vol] 72 U/L Normal 34-104 [facility] Comment on above: Performed By: #### L IPID, TSH3, CMP, CBC #### [address] ALT [Catalytic activity/Vol] 43 U/L Normal 7-52 [facility] Comment on above: Performed By: #### L IPID, TSH3, CMP, CBC #### [address] Anion gap [Moles/Vol] 8.9 mmol/L Normal 6.0-15.0 [facility] Comment on above: Performed By: #### L IPID, TSH3, CMP, CBC #### [address] AST [Catalytic activity/Vol] 23 U/L Normal 13-39 [facility] Comment on above: Performed By: #### L IPID, TSH3, CMP, CBC #### [address] Bilirubin [Mass/Vol] 1.2 mg/dL High 0.3-1.0 [facility] Comment on above: Performed By: #### L IPID, TSH3, CMP, CBC #### [address] Calcium [Mass/Vol] 9.5 mg/dL Normal 8.6-10.3 [facility] Comment on above: Performed By: #### L IPID, TSH3, CMP, CBC #### [address] Chloride [Moles/Vol] 107 mmol/L Normal 98-107 [facility] Comment on above: Performed By: #### L IPID, TSH3, CMP, CBC #### [address] CO2 [Moles/Vol] 30.0 mmol/L Normal 21.0-31.0 [facility] Comment on above: Performed By: #### L IPID, TSH3, CMP, CBC #### [address] Creatinine [Mass/Vol] 0.76 mg/dL Normal 0.60-1.20 [facility] Comment on above: Performed By: #### L IPID, TSH3, CMP, CBC #### [place] [address] [place] GFR/1.73 sq M.predicted MDRD (S/P/Bld) [Vol rate/Area] mL/min/{1.73_m2} Normal [facility] Comment on above: Performed By: #### L IPID, TSH3, CMP, CBC #### [address] Globulin (S) [Mass/Vol] 2.2 g/dL Normal [facility] Comment on above: Performed By: #### L IPID, TSH3, CMP, CBC #### [address] Glucose [Mass/Vol] 79 mg/dL Normal 70-100 [facility] Comment on above: Result Comment: [facility] Glucose Reference Range is dependent on time and content of last meal. Glucose of more than 200 mg/dL in a nonstressed, ambulatory subject supports the diagnosis of Diabetes Mellitus. ADA recommended reference range Performed By: #### L IPID, TSH3, CMP, CBC #### [address] Potassium [Moles/Vol] 3.9 mmol/L Normal 3.5-5.1 [facility] Comment on above: Performed By: #### L IPID, TSH3, CMP, CBC #### [address] Protein [Mass/Vol] 6.0 g/dL Low 6.4-8.9 [facility] Comment on above: Performed By: #### L IPID, TSH3, CMP, CBC #### [address] Sodium [Moles/Vol] 142 mmol/L Normal 136-145 [facility] Comment on above: Performed By: #### L IPID, TSH3, CMP, CBC #### [address] Urea nitrogen [Mass/Vol] 22 mg/dL Normal 7-25 [facility] Comment on above: Performed By: #### L IPID, TSH3, CMP, CBC #### [address] Lipid Panelon 09-03-2023 Cholesterol [Mass/Vol] 243 mg/dL High 140-200 [facility] Comment on above: Result Comment: Chol less than 200 mg/dl low risk Chol 201-239 mg/dl borderline risk Chol 240 mg/dl and greater high risk Performed By: #### L IPID, TSH3, CMP, CBC #### [facility] [address] Cholesterol in HDL [Mass/Vol] 98 mg/dL High 23-92 [facility] Comment on above: Result Comment: HDL CHOL ATP-III CLASSIFICATION Cardiovascular Risk HDL > or equal to 60 mg/dL LOW HDL < 40 mg/dL HIGH Performed By: #### L IPID, TSH3, CMP, CBC #### [facility] [address] Cholesterol.total/Ch olesterol in HDL [Mass ratio] 2.5 {ratio} Normal <5.0 [facility] Comment on above: Performed By: #### L IPID, TSH3, CMP, CBC #### [facility] [address] LDL Cholesterol,Calculat ed 121 mg/dL High 0-100 [facility] Comment on above: Result Comment: LDL ATP III CLASSIFICATION LDL less than 100 mg/dL Optimal LDL 100-129 mg/dL Near or above optimal LDL 130-159 mg/dL Borderline high LDL 160-189 mg/dL High LDL greater than 189 mg/dL Very high Performed By: #### L IPID, TSH3, CMP, CBC #### [facility] [address] Triglyceride w/Reflex 122 mg/dL Normal 0-149 [facility] Comment on above: Result Comment: TRIG ATP III CLASSIFICATION TRIG less than 150 mg/dL Normal TRIG 150-199 mg/dL Borderline high TRIG 200-500 mg/dL High TRIG greater than 500 mg/dL Very high Standard traceable to the Center for Disease Conrtrol and Prevention (CDC) test method. Performed By: #### L IPID, TSH3, CMP, CBC #### [facility] [address] VLDL CHOLESTEROL 24 mg/dL Normal [facility] Comment on above: Performed By: #### L IPID, TSH3, CMP, CBC #### [facility] [address] Thyroid Stimulating Hormoneo n 09-03-2023 TSH Qn 4.01 m[IU]/L Normal 0.45-5.33 [facility] Comment on above: Result Comment: PERF ORMED BY: [facility] [address] [place] [address] PATHOLOGIST MACHINE ETCHER JODY SOLANO M.D. Performed By: #### L IPID, TSH3, CMP, CBC #### [address] Complete Blood Count Auto Di ffon 07-08-2023 Basophils (Bld) [#/Vol] 0.415776812 10*3/uL Normal 0.0-0.2 10*3/uL 60mo Other Basophils/100 WBC (Bld) 0.900 % . % 60mo Other Eosinophils (Bld) [#/Vol] 0.012068900 10*3/uL Normal 0.0-0.45 10*3/uL 60mo Other Eosinophils/100 WBC (Bld) 1.100 % . % 60mo Other Erythrocyte distribution width (RBC) [Ratio] 14.000 % Normal 11.9-15.3 % 60mo Other Hematocrit (Bld) [Volume fraction] 37.700 % Normal 34.0-46.4 % 60mo Other Hemoglobin (Bld) [Mass/Vol] 12.109580 g/dL Normal 11.8-15.4 g/dL 60mo Other Lymphocytes (Bld) [#/Vol] 2.056490192 10*3/uL Normal 1.00-4.8 10*3/uL 60mo Other Lymphocytes/100 WBC (Bld) 35.100 % . % 60mo Other MCH (RBC) [Entitic mass] 33.3000 pg Normal 24.7-34.3 pg 60mo Other MCV (RBC) [Entitic vol] 99.7000 fL Normal 80-100 fL 60mo Other Monocytes (Bld) [#/Vol] 0.016076022 10*3/uL Normal 0.0-0.8 10*3/uL 60mo Other Monocytes/100 WBC (Bld) 10.000 % . % 60mo Other Neutrophils (Bld) [#/Vol] 3.929549381 10*3/uL Normal 1.8-7.7 10*3/uL 60mo Other Neutrophils/100 WBC (Bld) 52.900 % . % 60mo Other Platelet mean volume (Bld) [Entitic vol] 9.9000 fL Normal 6.3-10.7 fL 60mo Other Platelets (Bld) [#/Vol] 224 10*3/uL Normal 150-450 10*3/uL 60mo Other RBC (Bld) [#/Vol] 3.78 10*6/uL Normal 3.60-5.00 60mo Other WBC (Bld) [#/Vol] 7.976357852 10*3/uL Normal 3.8 -11.6 10*3/uL 60mo Other Complete Blood Count Auto Diff 7.1 10*3/uL Normal 3.8-11.6 10*3/uL 60mo Other Complete Blood Count Auto Diff 33.4 g/dL Normal 32.0-35.0 g/dL 60mo Other Complete Blood Count Auto Diff 0.1 /100{WBC} Normal 0-0.5 /100{WBC} 60mo Other Comprehensive Metabolic Pane nory 07-08-2023 Albumin [Mass/Vol] 3.155212 g/dL Normal 3.5-5.7 g/dL N [facility] [employer] Other Albumin/Globulin [Mass ratio] 1.7 {ratio} 60mo Other ALP [Catalytic activity/Vol] 140 U/L High 34-104 U/L 60mo Other ALT [Catalytic activity/Vol] 71 U/L High 7-52 U/L 60mo Other AST [Catalytic activity/Vol] 20 U/L Normal 13-39 U/L 60mo Other Bilirubin [Mass/Vol] 0.4775119 mg/dL Normal 0.3-1.0 mg /dL 60mo Other Calcium [Mass/Vol] 9.6638535 mg/dL Normal 8.6-10 .3 mg/dL 60mo Other Chloride [Moles/Vol] 107 mmol/L Normal 98-107 mmol/L [facility] [employer] Other CO2 [Moles/Vol] 30.59262905 mmol/L Normal 21.0-3 1.0 mmol/L 60mo Other Creatinine [Mass/Vol] 0.48524673 mg/dL Normal 0.60-1.20 mg/dL 60mo Other GFR/1.73 sq M.predicted MDRD (S/P/Bld) [Vol rate/Area] mL/min/{1.73_m2} 60mo Other Glucose [Mass/Vol] 89 mg/dL Normal 70-100 mg/dL Nort [employer] Other Potassium [Moles/Vol] 3.39942250 mmol/L Normal 3.5-5.1 mmol/L 60mo Other Protein [Mass/Vol] 6.021430 g/dL Low 6.4-8.9 g/dL N [facility] [employer] Other Sodium [Moles/Vol] 143 mmol/L Normal 136-145 mmol/L 60mo Other Urea nitrogen [Mass/Vol] 21 mg/dL Normal 7-25 mg/dL 60mo Other Comprehensive Metabolic Panel 2.2 g/dL 60mo Other Free T4 (Free Thyroxine)on 0 07-08-2023 Free T4 [Mass/Vol] 1.92487642 ng/dL High 0.61- 1.12 ng/dL 60mo Other Thyroid Antibodies TPO+Tg Ab on 07-08-2023 Thyroid Antibodies TPO+Tg Ab 11 0-34 60mo Other Thyroid Antibodies TPO+Tg Ab <1.0 0.0-0.9 60mo Other Thyroid Stimulating Hormoneo n 07-08-2023 TSH Qn 2.91483338924 m[IU]/L Normal 0.45-5 .33 u[iU]/mL 60mo Other Echocardiogramon 02-26-[address], [place] [address] TRANSTHORACIC ECHOCARDIOGRAM REPORT Patient Name: LAVONNE Bahena Physician: [id number] [facility] Study Date: 02/26/2023 Referring MICHEL WOLF Physician: MRN/PID: [id number] PCP: Suhas Garrett MD Accession/Order#: [id number] Department [facility] Location: Date of : 1935 Fellow: Gender: F Nurse: Admit Date: Engineering Supplies Sales: Sheridan Lemus [facility], [facility] Height: 157.48 cm CC Report to: Weight: 67.13 kg Study Type: Echocardiogram BSA: 1.68 m2 Blood Pressure: 122 /76 mmHg Diagnosis/ICD: I35.0-Nonrheumatic aortic (valve) stenosis; R01.1-Cardiac murmur, unspecified Indication: HTN, Hyperlipidemia, Overweight, Hypothyroid, Polymyalgia Rheumatica Procedure/CPT: Echo Complete w Full Doppler-[id number] Study Detail: The following Echo studies were [...] AoV Mean P.0 mmHg (1.7-11.5mmHg) LVOT Max Nadya: 0.90 m/s (<=1.1m/s) AoV VTI: 97.30 cm (18-25cm) LVOT VTI: 23.10 cm LVOT Diameter: 2.00 cm (1.8-2.4cm) AoV Area, VTI: 0.75 cm2 (2.5-5.5cm2) AoV Area,Vmax: 0.76 cm2 (2.5-4.5cm2) AoV Dimensionless Index: 0.24 TRICUSPID VALVE/RVSP: Normal Ranges: Peak TR Velocity: 2.99 m/s RV Syst Pressure: 38.8 mmHg (< 30mmHg) PULMONIC VALVE: Normal Ranges: PV Max Nadya: 0.8 m/s (0.6-0.9m/s) PV Max P.6 mmHg PIEDV: 2.50 m/s PADP: 28.0 mmHg [id number] Michel Wolf MD, FAC Electronically signed on 03/01/2023 at 2:16:46 PM Final Normal [facility] Office Visit (Cardiology)on 12-24-2022 Follow-up visit Diagnoses/Problems Assessed Aortic stenosis (424.1) (I35.0) Murmur, cardiac (785.2) (R01.1) Essential hypertension (401.9) (I10) Hyperlipidemia (272.4) (E78.5) Overweight with body mass index (BMI) of 27 to 27.9 in adult (278.02,V85.23) (E66.3,Z68.27) Never smoker Hypothyroidism (244.9) (E03.9) PMR (polymyalgia rheumatica) (725) (M35.3) Orders Aortic stenosis, Murmur, cardiac Echocardiogram; Status:Hold For - Scheduling,Retrospect bola Authorization; Requested for:[id number]; Essential hypertension, Hyperlipidemia Changed: From Aspirin EC 81 MG TBEC TAKE 1 TABLET -- To Aspirin 81 MG Oral Tablet Delayed Release TAKE 1 TABLET DAILY Overweight with body mass index (BMI) of 27 to 27.9 in adult Healthy Weight Tips; Status:Complete - Retrospective Authorization; Done: [id number] Some eating tips that can help you lose weight.; Status:Complete - Retrospective Authorization; Done: [id number] SocHx: Never smoker Tobacco Use Screening; Status:Complete; Done: [id number] Patient Instructions Please bring all medicines, vitamins, [...] PCP. The prednisone is being tapered gradually Michel Wolf MD, [facility] Past Medical History Problems History of Carotid [...] Multi Vitamin Oral TabletTAKE 1 TABLET DAILY. Cascade-3 Fish Oil 1000 MG Oral CapsuleTAKE 1 [...] negative for complaint. Vitals Vital Signs Recorded: 24Dec2022 11:32AM Heart Rate68, R Radial Cmkbxnrw341, RUE, Sitting Auupabvkn63, RUE, Sitting Height5 ft 2 in [address] lb BMI Mztiuqcqwf19.07 kg/m2 BSA Calculated1.68 Tobacco Useb) No PHQ-2 [...] distress a (more content not included)... Normal [employer] Tobacco Screening.on 023 Adult depression screening assessment No [facility] 250 DO Work Phone: Fall risk assessment a) No falls within the last year [facility] 250 DO Work Phone: Tobacco use status CPHS b) No [facility] 250 DO Work Phone: Complete Blood Count Auto Di ffon 02-22-2022 Basophils (Bld) [#/Vol] 0.778292162 10*3/uL Normal 0.0-0.2 10*3/uL 60mo Other Basophils/100 WBC (Bld) 0.700 % . % 60mo Other Eosinophils (Bld) [#/Vol] 0.836124649 10*3/uL Normal 0.0-0.45 10*3/uL 60mo Other Eosinophils/100 WBC (Bld) 0.700 % . % 60mo Other Erythrocyte distribution width (RBC) [Ratio] 13.500 % Normal 11.9-15.3 % 60mo Other Hematocrit (Bld) [Volume fraction] 38.400 % Normal 34.0-46.4 % 60mo Other Hemoglobin (Bld) [Mass/Vol] 12.971646 g/dL Normal 11.8-15.4 g/dL 60mo Other Lymphocytes (Bld) [#/Vol] 0.991293850 10*3/uL Low 1.00-4.8 10*3/uL 60mo Other Lymphocytes/100 WBC (Bld) 12.600 % . % 60mo Other MCH (RBC) [Entitic mass] 33.7000 pg Normal 24.7-34.3 pg 60mo Other MCV (RBC) [Entitic vol] 100.4000 fL High 80-100 fL 60mo Other Monocytes (Bld) [#/Vol] 0.590935150 10*3/uL Normal 0.0-0.8 10*3/uL 60mo Other Monocytes/100 WBC (Bld) 6.800 % . % 60mo Other Neutrophils (Bld) [#/Vol] 5.400144471 10*3/uL Normal 1.8-7.7 10*3/uL 60mo Other Neutrophils/100 WBC (Bld) 79.200 % . % 60mo Other Platelet mean volume (Bld) [Entitic vol] 9.4000 fL Normal 6.3-10.7 fL 60mo Other Platelets (Bld) [#/Vol] 223 10*3/uL Normal 150-450 10*3/uL 60mo Other RBC (Bld) [#/Vol] 3.7385949181 10*6/uL Normal 3. 60-5.00 10*6/uL 60mo Other WBC (Bld) [#/Vol] 6.687794677 10*3/uL Normal 3.8 -11.6 10*3/uL 60mo Other Complete Blood Count Auto Diff 6.6 10*3/uL Normal 4.5-11.0 10*3/uL 60mo Other Complete Blood Count Auto Diff 33.6 g/dL Normal 32.0-35.0 g/dL 60mo Other Complete Blood Count Auto Diff 0.1 % Normal 0-0.5 % 60mo Other Erythrocyte Sedimentation Ra amy 02-22-2022 ESR (Bld) [Velocity] 28 mm/h Normal 0-29 Nort [employer] Other VASC LAB Carotid Artery Dupl ex Ultrasoundon 02-21-2022 US.doppler Carotid arteries [facility] [employer] [place] Work Phone: COVID Quick Testingon 2021 Result Positive 60mo Other Falls Screening (Age 18+)on 12-26-2021 Fall risk assessment a) No falls within the last year [facility] Work Phone: Office Visit (Cardiology)on 12-26-2021 Follow-up visit Diagnoses/Problems Assessed Essential hypertension (401.9) (I10) Patient Instructions By signing my name below, I Sherin Andrea Duarte,Avni, attest that this documentation has been prepared under the direction and in the presence of Dr. Michle Wolf MD. All medical record entries made [...] Multi Vitamin Oral TabletTAKE 1 TABLET DAILY. Cascade 3 500 CAPSTAKE 1 CAPSULE Daily predniSONE 5 MG Oral Uandhi9FE 7.5MG BY MOUTH ONE DAILY ALTERNATING EVERY OTHER DAY Allergies Medication amoxicillin Hives;; Recorded By: Kayla Orr; 10/17/2021 10:50:34 AM Dilantin CAPS Rash; Recorded By: Kayla Orr; 10/17/2021 10:50:34 AM Fosamax eye pain; Recorded By: Kayla Orr; 10/17/2021 10:50:34 AM Depakote ER TB24 Recorded By: Kayla Orr; 10/17/2021 10:50:34 AM Vitals Vital Signs Recorded: [id number] 11:04AMRecorded: 45Gko3360 11:00AM Heart Rate56, R Kepwkz51, R Radial Etcxshkk124, LUE, Drunxic512, RUE Vmubzzulf93, LUE, Daoezyn05, RUE Height5 ft 2 in5 ft 2 in Cprjuy858 lb 143 lb BMI Lmycinqnnk12.16 kg/m226.16 kg/m2 BSA Calculated1.661.66 Falls Screening (Age 18+)a) No falls within the last year Signatures Electronically signed by : Michel Wolf MD; Dec 26 2021 4:02PM EST (Author) Normal [employer] Tobacco Screening.on 022 Adult depression screening assessment No [facility] Work Phone: Fall risk assessment a) No falls within the last year [facility] Work Phone: Tobacco use status CPHS b) No [facility] Work Phone: Vital Signs Date Time Vital Sign Value 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 Facility 01-14-2025 11:07-0400 Body height 157.5 cm Michel Wolf MD Work Phone: [facility] 01-14-2025 11:07-0400 Body mass index (BMI) [Ratio] 27.44 kg/m2 Michel Wolf MD Work Phone: [facility] 01-14-2025 11:07-0400 Body weight 68.04 kg Michel Wolf MD Work Phone: [facility] 01-14-2025 11:07-0400 Diastolic blood pressure 78 mm[Hg] Michel Wolf MD Work Phone: [facility] 01-14-2025 11:07-0400 Heart rate 60 /min Michel Wolf MD Work Phone: [facility] 01-14-2025 11:07-0400 Systolic blood pressure 168 mm[Hg] Michel Wolf MD Work Phone: [facility] 12-21-2024 12:30-0400 Body height 157.[address] 12-21-2024 12:30-0400 Body mass index (BMI) [Ratio] 26.52 kg/m2 [address] 12-21-2024 12:30-0400 Body weight 65.[address] 12-21-2024 12:30-0400 Diastolic blood pressure 68 mm[Hg] [address] 12-21-2024 12:30-0400 Systolic blood pressure 146 mm[Hg] [address] 12-08-2024 13:56-0400 Diastolic blood pressure 70 mm[Hg] Reuben Burns PAPER [employer] MACHINE OPERATOR-TRANSITION RN Work Phone: [facility] 12-08-2024 13:56-0400 Systolic blood pressure 142 mm[Hg] Reuben Burns PAPER [employer] MACHINE OPERATOR-TRANSITION RN Work Phone: [facility] 12-07-2024 14:59-0400 Body height 157.5 cm Reuben Burns P[employer] MACHINE OPERATOR-TRANSITION RN Work Phone: [facility] 12-07-2024 14:59-0400 Body mass index (BMI) [Ratio] 26.45 kg/m2 Reuben Burns P[employer] MACHINE OPERATOR-TRANSITION RN Work Phone: [facility] 12-07-2024 14:59-0400 Body weight 65.59 kg Reuben Burns P[employer] MACHINE OPERATOR-TRANSITION RN Work Phone: [facility] 12-07-2024 14:59-0400 Heart rate 62 /min Reuben Burns P[employer]ER [employer] MACHINE OPERATOR-TRANSITION RN Work Phone: [facility] 04-16-2024 13:16-0500 Body height 157.5 cm Michel Wolf MD Work Phone: [facility] 04-16-2024 13:16-0500 Body mass index (BMI) [Ratio] 26.67 kg/m2 Michel Wolf MD Work Phone: [facility] 04-16-2024 13:16-0500 Body weight 66.13 kg Michel Wlof MD Work Phone: [facility] 04-16-2024 13:16-0500 Diastolic blood pressure 62 mm[Hg] Michel Wolf MD Work Phone: [facility] 04-16-2024 13:16-0500 Heart rate 62 /min Michel Wolf MD Work Phone: [facility] 04-16-2024 13:16-0500 Systolic blood pressure 120 mm[Hg] Michel Wolf MD Work Phone: [facility] 02-11-2024 12:28-0400 Body height 157.[address] 02-11-2024 12:28-0400 Body mass index (BMI) [Ratio] 27.98 kg/m2 [address] 02-11-2024 12:28-040 Body weight 69.[address] 02-11-2024 12:28-0400 Diastolic blood pressure 76 mm[Hg] [address] 02-11-2024 12:28-0400 Systolic blood pressure 116 mm[Hg] [address] 07-04-2023 11:15-0500 Body height 157.48 cm Suhas Garrett Other [employer] [facility] Learnerator Other 07-04-2023 11:15-0500 Body mass index (BMI) [Ratio] 28.53 kg/m2 Suhas Garrett Other [employer] [facility] [employer] Other 07-04-2023 11:15-0500 Body weight 70.76 kg Suhas Garrett Other [employer] Other 07-04-2023 11:15-0500 Diastolic blood pressure 84 mm[Hg] Suhas Garrett Other [employer] Other 07-04-2023 11:15-0500 Respiratory rate 20 /min Suhas Garrett Other [employer] [facility] [employer] Other 07-04-2023 11:15-0500 SaO2% (BldA) [Mass fraction] 99 % Suhas Garrett Other [employer] Other 07-04-2023 11:15-0500 Systolic blood pressure 150 mm[Hg] Suhas Garrett Other [employer] Other 06-19-2023 11:09-0500 Body height 157.5 cm Michel Wolf MD Work Phone: [facility] 06-19-2023 11:09-0500 Body mass index (BMI) [Ratio] 27.98 kg/m2 Michel Wolf MD Work Phone: [facility] 06-19-2023 11:09-0500 Body weight 69.4 kg Michel Wolf MD Work Phone: [facility] 06-19-2023 11:09-0500 Diastolic blood pressure 76 mm[Hg] Michel Wolf MD Work Phone: [facility] 06-19-2023 11:09-0500 Heart rate 60 /min Michel Wolf MD Work Phone: [facility] 06-19-2023 11:09-0500 Systolic blood pressure 120 mm[Hg] Michel Wolf MD Work Phone: [facility] 05-30-2023 11:00-0500 Body height 157.48 cm Suhas Garrett Other [employer] Other 05-30-2023 11:00-0500 Body mass index (BMI) [Ratio] 27.8 kg/m2 Suhas Garrett Other [employer] Other 05-30-2023 11:00-0500 Body weight 68.95 kg Suhas Garrett Other [employer] Other 05-30-2023 11:00-0500 Diastolic blood pressure 80 mm[Hg] Suhasraquel Garrett Other [employer] Other 05-30-2023 11:00-0500 Respiratory rate 18 /min Suhas Garrett Other [employer] Other 05-30-2023 11:00-0500 SaO2% (BldA) [Mass fraction] 96 % Suhasraquel Mayoadan Other [employer] Other 05-30-2023 11:00-0500 Systolic blood pressure 122 mm[Hg] Suhas Tami Other [employer] Other 02-28-2023 10:30-0400 Body height 157.48 cm Suhas Tami Other [employer] Other 02-28-2023 10:30-0400 Body mass index (BMI) [Ratio] 27.98 kg/m2 Suhasraquel Mayoadan Other [employer] Other 02-28-2023 10:30-0400 Body weight 69.4 kg Suhas Garrett Other [employer] Other 02-28-2023 10:30-0400 Diastolic blood pressure 76 mm[Hg] Suhas Tami Other [employer] Other 02-28-2023 10:30-0400 Respiratory rate 16 /min Suhas Tami Other [employer] Other 02-28-2023 10:30-0400 SaO2% (BldA) [Mass fraction] 91 % Suhas Garrett Other [employer] Other 02-28-2023 10:30-0400 Systolic blood pressure 134 mm[Hg] Suhas Garrett Other [facility] [employer] Other 12-24-2022 11:32-0400 Body height 157.48 cm Suhas Garrett Work Phone: [facility] [address] DO Work Phone: 12-24-2022 11:32-0400 Body mass index (BMI) [Ratio] 27.07 kg/m2 Suhas Garrett Work Phone: [facility] [address] DO Work Phone: 12-24-2022 11:32-0400 Body surface area Derived from formula 1.68 m2 Suhas Dalton Tami Work Phone: [facility] [address] DO Work Phone: 12-24-2022 11:32-0400 Body weight 67.13 kg Suhas Garrett Work Phone: [facility] [address] DO Work Phone: 12-24-2022 11:32-0400 Diastolic blood pressure 76 mm[Hg] Suhas Dalton Garrett Work Phone: [facility] [address] DO Work Phone: 12-24-2022 11:32-0400 Heart rate 68 /min Suhas Garrett Work Phone: [facility] [address] DO Work Phone: 12-24-2022 11:32-0400 Systolic blood pressure 118 mm[Hg] Suhas Dalton Gaels Work Phone: [facility] [address] DO Work Phone: 12-06-2022 10:30-0400 Body height 157.48 cm Suhas Garrett Other [employer] Other 12-06-2022 10:30-0400 Body mass index (BMI) [Ratio] 27.98 kg/m2 Suhasraquel Mayoadan Other [employer] Other 12-06-2022 10:30-0400 Body weight 69.4 kg Suhas Garrett Other [employer] Other 12-06-2022 10:30-0400 Diastolic blood pressure 70 mm[Hg] Suhas Garrett Other [employer] Other 12-06-2022 10:30-0400 Respiratory rate 16 /min Suhas Garrett Other [employer] Other 12-06-2022 10:30-0400 SaO2% (BldA) [Mass fraction] 98 % Suhas Garrett Other [employer] Other 12-06-2022 10:30-0400 Systolic blood pressure 146 mm[Hg] Suhas Garrett Other [employer] Other 09-20-2022 11:45-0400 Body height 157.48 cm Suhas Garrett Other [employer] Other 09-20-2022 11:45-0400 Body mass index (BMI) [Ratio] 26.34 kg/m2 Suhas Garrett Other [employer] Other 09-20-2022 11:45-0400 Body weight 65.32 kg Suhas Garrett Other [employer] Other 09-20-2022 11:45-0400 Diastolic blood pressure 70 mm[Hg] Suhas Garrett Other [employer] Other 09-20-2022 11:45-0400 Respiratory rate 16 /min Suhas Garrett Other [employer] Other 09-20-2022 11:45-0400 SaO2% (BldA) [Mass fraction] 98 % Suhas Garrett Other [employer] Other 09-20-2022 11:45-0400 Systolic blood pressure 130 mm[Hg] Suhas Garrett Other [employer] Other 07-22-2022 11:30-0500 Body height 157.48 cm Suhas Garrett Other [employer] Other 07-22-2022 11:30-0500 Body mass index (BMI) [Ratio] 26.85 kg/m2 Suhas Garrett Other [employer] Other 07-22-2022 11:30-0500 Body weight 66.59 kg Suhas Garrett Other [employer] Other 07-22-2022 11:30-0500 Diastolic blood pressure 70 mm[Hg] Suhas Garrett Other [employer] Other 07-22-2022 11:30-0500 Respiratory rate 16 /min Suhas Garrett Other [employer] Other 07-22-2022 11:30-0500 SaO2% (BldA) [Mass fraction] 98 % Suhas Garrett Other [employer] Other 07-22-2022 11:30-0500 Systolic blood pressure 122 mm[Hg] Suhas Garrett Other [employer] Other 04-17-2022 11:45-0500 Body height 157.48 cm Suhas Garrett Other [employer] Other 04-17-2022 11:45-0500 Body mass index (BMI) [Ratio] 26.88 kg/m2 Suhasraquel Garrett Other [employer] Other 04-17-2022 11:45-0500 Body weight 66.68 kg Suhas Garrett Other [employer] Other 04-17-2022 11:45-0500 Diastolic blood pressure 72 mm[Hg] Suhas Mayoadan Other [employer] Other 04-17-2022 11:45-0500 Respiratory rate 16 /min Suhas Garrett Other [employer] Other 04-17-2022 11:45-0500 SaO2% (BldA) [Mass fraction] 99 % Suhas Garrett Other [employer] Other 04-17-2022 11:45-0500 Systolic blood pressure 138 mm[Hg] Suhas Tami Other [employer] Other 02-22-2022 10:15-0400 Body height 157.48 cm Suhas Tami Other [employer] Other 02-22-2022 10:15-0400 Body mass index (BMI) [Ratio] 27.07 kg/m2 Suhas Garrett Other [employer] Other 02-22-2022 10:15-0400 Body weight 67.13 kg Suhas Garrett Other [employer] Other 02-22-2022 10:15-0400 Diastolic blood pressure 70 mm[Hg] Suhas Garrett Other [employer] Other 02-22-2022 10:15-0400 Respiratory rate 16 /min Suhas Garrett Other [employer] Other 02-22-2022 10:15-0400 SaO2% (BldA) [Mass fraction] 97 % Suhas Garrett Other [employer] Other 02-22-2022 10:15-0400 Systolic blood pressure 122 mm[Hg] Suhas Garrett Other [employer] Other 02-21-2022 10:45-0400 70 1 Suhas Garrett Work Phone: [place] [id number] [place] Work Phone: Comment on above: [id number] 02-14-2022 15:45-0400 Body height 157.48 cm Suhas Garrett Other [employer] Other 02-14-2022 15:45-0400 Body mass index (BMI) [Ratio] 26.7 kg/m2 Suhas Garrett Other [employer] Other 02-14-2022 15:45-0400 Body weight 66.23 kg Suhas Garrett Other [employer] Other 02-14-2022 15:45-0400 Diastolic blood pressure 72 mm[Hg] Suhas Garrett Other [employer] Other 02-14-2022 15:45-0400 Respiratory rate 16 /min Suhas Garrett Other [facility] [employer] Other 02-14-2022 15:45-0400 SaO2% (BldA) [Mass fraction] 96 % Suhas Garrett Other [facility] [employer] Other 02-14-2022 15:45-0400 Systolic blood pressure 132 mm[Hg] Suhas Gaeladan Other [facility] [employer] Other 12-26-2021 11:04-0400 Body height 157.48 cm Suhas Hoffman Tami Work Phone: [facility] [address] DO Work Phone: 12-26-2021 11:04-0400 Body mass index (BMI) [Ratio] 26.16 kg/m2 Suhas Dalton Garrett Work Phone: [facility] [place] [address] DO Work Phone: 12-26-2021 11:04-0400 Body surface area Derived from formula 1.66 m2 Suhas Garrett Work Phone: [facility] [employer] 250 DO Work Phone: 12-26-2021 11:04-0400 Body weight 64.86 kg Suhas Hoffman Tami Work Phone: [facility] [address] DO Work Phone: 12-26-2021 11:04-0400 Diastolic blood pressure 68 mm[Hg] Suhas Hoffman Tami Work Phone: [facility] [address] DO Work Phone: 12-26-2021 11:04-0400 Heart rate 56 /min Suhas Hoffman Tami Work Phone: [facility] [address] DO Work Phone: 12-26-2021 11:04-0400 Systolic blood pressure 126 mm[Hg] Suhas Garrett Work Phone: [facility] [address] DO Work Phone: 12-26-2021 11:00-0400 Diastolic blood pressure 70 mm[Hg] Suhas Mayos Work Phone: [facility] [address] DO Work Phone: 12-26-2021 11:00-0400 Systolic blood pressure 130 mm[Hg] Suhas Garrett Work Phone: [facility] [address] DO Work Phone: 12-13-2021 11:39-0400 Diastolic blood pressure 80 mm[Hg] Suhas Garrett Work Phone: [facility] Work Phone: 12-13-2021 11:39-0400 Systolic blood pressure 170 mm[Hg] Suhas Garrett Work Phone: [facility] Work Phone: 12-13-2021 11:22-0400 Diastolic blood pressure 80 mm[Hg] Suhas Garrett Work Phone: [facility] Work Phone: 12-13-2021 11:22-0400 Systolic blood pressure 158 mm[Hg] Suhas Garrett Work Phone: [facility] Work Phone: 12-13-2021 11:17-0400 Body height 157.48 cm Suhas Garrett Work Phone: [facility] Work Phone: 12-13-2021 11:17-0400 Body mass index (BMI) [Ratio] 26.52 kg/m2 Suhas Garrett Work Phone: [facility] Work Phone: 12-13-2021 11:17-0400 Body surface area Derived from formula 1.67 m2 Suhas Garrett Work Phone: [facility] Work Phone: 12-13-2021 11:17-0400 Body weight 65.77 kg Suhas Garrett Work Phone: [facility] Work Phone: 12-13-2021 11:17-0400 Diastolic blood pressure 80 mm[Hg] Suhas Garrett Work Phone: [facility] Work Phone: 12-13-2021 11:17-0400 Heart rate 60 /min Suhas Garrett Work Phone: [facility] Work Phone: 12-13-2021 11:17-0400 Systolic blood pressure 160 mm[Hg] Suhas Garrett Work Phone: [facility] Work Phone: 10-01-2021 13:30-0400 Body height 157.48 cm Suhas Mayoadan Other [employer] Other 10-01-2021 13:30-0400 Body mass index (BMI) [Ratio] 26.34 kg/m2 Suhas Garrett Other [employer] Other 10-01-2021 13:30-0400 Body weight 65.32 kg Suhas Garrett Other [employer] Other 10-01-2021 13:30-0400 Diastolic blood pressure 72 mm[Hg] Suhas Garrett Other [employer] Other 10-01-2021 13:30-0400 Respiratory rate 18 /min Suhas Garrett Other [employer] Other 10-01-2021 13:30-0400 SaO2% (BldA) [Mass fraction] 99 % Suhasraquel Mayoadan Other [employer] Other 10-01-2021 13:30-0400 Systolic blood pressure 130 mm[Hg] Suhas Tami Other [employer] Other 08-02-2021 13:30-0500 Body height 157.48 cm Suhas Garrett Other [employer] Other 08-02-2021 13:30-0500 Body mass index (BMI) [Ratio] 26.52 kg/m2 Suhas Garrett Other [employer] Other 08-02-2021 13:30-0500 Body weight 65.77 kg Suhas Garrett Other [employer] Other 08-02-2021 13:30-0500 Diastolic blood pressure 70 mm[Hg] Suhas Garrett Other [employer] Other 08-02-2021 13:30-0500 Respiratory rate 16 /min Suhas Tami Other [employer] Other 08-02-2021 13:30-0500 SaO2% (BldA) [Mass fraction] 99 % Suhas Garrett Other [employer] Other 08-02-2021 13:30-0500 Systolic blood pressure 118 mm[Hg] Suhas Garrett Other [employer] Other 04-26-2021 13:30-0500 Body height 157.48 cm Suhas Garrett Other [employer] Other 04-26-2021 13:30-0500 Body mass index (BMI) [Ratio] 25.97 kg/m2 Suhas Garrett Other [employer] Other 04-26-2021 13:30-0500 Body weight 64.41 kg Suhas Garrett Other [employer] Other 04-26-2021 13:30-0500 Diastolic blood pressure 74 mm[Hg] Suhas Garrett Other [employer] Other 04-26-2021 13:30-0500 Respiratory rate 17 /min Suhas Garrett Other [employer] Other 04-26-2021 13:30-0500 SaO2% (BldA) [Mass fraction] 98 % Suhas Garrett Other [employer] Other 04-26-2021 13:30-0500 Systolic blood pressure 120 mm[Hg] Suhas Garrett Other [employer] Other Encounters Encounter Date Encounter Type Care Provider Facility Start: 02-14-2025 End: 02-14-2025 ambulatory Gloria Weston MD Facility: [facility] Start: 01-14-2025 End: 01-14-2025 Office outpatient visit 25 minutes Michel Wolf MD Work Phone: [facility] Comment on above: Nonrheumatic aortic valve stenosis (Primary Dx); 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; Hyperlipidemia, unspecified hyperlipidemia type; PMR (polymyalgia rheumatica) (Multi); Hypothyroidism, unspecified type; BMI 27.0-27.9,adult; Never smoked any substance; Overweight Start: 01-14-2025 End: [facility]-14[facility] Start: 12-21-2024 End: 12-21-2024 Subsequent hospital visit by physician Susie Baker Echo/Vasc Room 2 [facility] Comment on above: Aortic valve stenosi s, etiology of cardiac valve disease unspecified Start: 12-21-2024 End: 12-21-2024 ambulatory [facility] Start: 12-07-2024 End: 12-07-2024 Office outpatient visit 15 minutes Reuben K Seeley [employer] MACHINE OPERATOR-TRANSITION RN Work Phone: [facility] Comment on above: 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 (Primary Dx); BMI 26.0-26.9,adult Start: 12-07-2024 End: 12-07-2024 ambulatory [facility] Ambulatory Start: 10-25-2024 End: 10-25-2024 ambulatory Gloria Weston MD Facility: [facility] Start: 09-13-2024 End: 09-13-2024 ambulatory Gloria Weston MD Facility: [facility] Start: 07-28-2024 End: 07-28-2024 ambulatory Suhas Garrett Facility:[facility] Start: 05-25-2024 End: 05-25-2024 ambulatory Suhas Garrett Facility:[facility] Start: 04-16-2024 End: 04-16-2024 Office outpatient visit 25 minutes Michel Wolf MD Work Phone: [facility] Comment on above: Aortic valve stenosi s, etiology of cardiac valve disease unspecified (Primary Dx); Essential hypertension; Hyperlipidemia, unspecified hyperlipidemia type; Never smoked any substance; BMI 26.0-26.9,adult; Hypothyroidism, unspecified type Start: 04-16-2024 End: 04-16-2024 ambulatory [facility] Ambulatory Start: 02-23-2024 End: 02-23-2024 ambulatory Gloria Weston MD Facility: [facility] Start: 02-11-2024 End: 02-11-2024 Subsequent hospital visit by physician Susie Baker Echo/Vasc Room 2 [facility] Comment on above: Nonrheumatic aortic valve stenosis; Aortic valve stenosis, etiology of cardiac valve disease unspecified Start: 02-11-2024 End: 02-11-2024 ambulatory [facility] Start: 10-14-2023 End: 10-14-2023 ambulatory Suhas Garrett Facility:[facility] Start: 09-03-2023 End: 09-03-2023 ambulatory Suhas Garrett Facility:[facility] Start: 07-18-2023 End: 07-18-2023 ambulatory Suhas Garrett Other [employer] Other Start: 07-18-2023 Telephone encounter Suhas Garrett [facility] Start: 07-15-2023 End: 07-15-2023 ambulatory Suhas Mayos Other [employer] Other Start: 07-15-2023 Telephone encounter Suhas Garrett [facility] Start: 07-10-2023 End: 07-10-2023 ambulatory Suhas Garrett Other [employer] Other Start: 07-10-2023 Telephone encounter Suhas Garrett [facility] [place] Start: 07-07-2023 End: 07-07-2023 ambulatory Suhas Garrett Other [employer] Other Start: 07-07-2023 Telephone encounter Suhas Garrett [facility] [place] Start: 07-04-2023 End: 07-04-2023 ambulatory Suhas Mayos Other [employer] Other Start: 07-04-2023 Office outpatient vi sit 15 minutes Suhas Mayos [facility] [place] Start: 06-19-2023 End: 06-19-2023 ambulatory Suhas Mayos Other [employer] Other Start: 06-19-2023 Telephone encounter Suhas Garrett [facility] Start: 06-19-2023 End: 06-19-2023 Office outpatient visit 25 minutes Michel Wolf MD Work Phone: [facility] Comment on above: Aortic valve stenosi s, etiology of cardiac valve disease unspecified; Essential hypertension; Hyperlipidemia, unspecified hyperlipidemia type; Never smoked any substance Start: 05-30-2023 End: 05-30-2023 ambulatory Suhas Garrett Other [employer] Other Start: 05-30-2023 Office outpatient vi sit 25 minutes Suhas Garrett [facility] [place] Start: 05-28-2023 End: 05-28-2023 ambulatory Suhas Garrett Other [employer] Other Start: 05-28-2023 Telephone encounter Suhas Garrett [facility] Start: 04-23-2023 End: 04-23-2023 ambulatory Suhas Garrett Other [employer] Other Start: 04-23-2023 Telephone encounter Suhas Garrett [facility] [place] Start: 04-18-2023 End: 04-18-2023 ambulatory Suhas Garrett Other [employer] Other Start: 04-18-2023 Telephone encounter Suhas Garrett [facility] [place] Start: 03-02-2023 Chart Update Suhas Garrett Work Phone: [facility] 250 DO Work Phone: Start: 02-28-2023 End: 02-28-2023 ambulatory Suhas Garrett Other [employer] Other Start: 02-28-2023 Office outpatient vi sit 15 minutes Suhas Garrett [facility] [place] Start: 02-26-[address] Suhas Rich ick Kuns Facility:[id number] Start: 01-27-2023 End: 01-27-2023 ambulatory Suhas Garrett Other [employer] Other Start: 01-27-2023 Telephone encounter Suhas Garrett [facility] [place] Start: 12-24-2022 Office outpatient vi sit 25 minutes Suhas Garrett Work Phone: [facility] 250 DO Work Phone: Start: 12-24-[address] Michel Wolf Facility: Start: 12-06-2022 End: 12-06-2022 ambulatory Suhas Garrett Other [employer] Other Start: 12-06-2022 Office outpatient vi sit 15 minutes Suhasraquel Mayos [facility] Start: 09-20-2022 End: 09-20-2022 ambulatory Suhas Garrett Other [employer] Other Start: 09-20-2022 Office outpatient vi sit 15 minutes Suhas Mayos [facility] Start: 08-14-2022 End: 08-14-2022 ambulatory Suhas Garrett Other [employer] Other Start: 08-14-2022 Telephone encounter Suhas Garrett [facility] Start: 07-22-2022 End: 07-22-2022 ambulatory Suhas Garrett Other [employer] Other Start: 07-22-2022 Office outpatient vi sit 15 minutes Suhasraquel Mayos [facility] Start: 04-17-2022 End: 04-17-2022 ambulatory Suhas Mayos Other [employer] Other Start: 04-17-2022 Office outpatient vi sit 15 minutes Suhasraquel Mayos [facility] Start: 04-10-2022 End: 04-10-2022 ambulatory Suhas Kuns Other [employer] Other Start: 04-10-2022 Telephone encounter Suhas Gaeladan [facility] Start: 04-03-2022 End: 04-03-2022 ambulatory Suhas Mayoadan Other [employer] Other Start: 04-03-2022 Telephone encounter Suhas Garrett [facility] Start: 04-02-2022 End: 04-02-2022 ambulatory Suhas Mayoadan Other [employer] Other Start: 04-02-2022 Telephone encounter Suhas Gaeladan [facility] Start: 02-26-2022 End: 02-26-2022 ambulatory Suhas Mayoadan Other [employer] Other Start: 02-26-2022 Telephone encounter Suhas Gaeladan [facility] Start: 02-25-2022 End: 02-25-2022 ambulatory Suhas Mayoadan Other [employer] Other Start: 02-25-2022 Telephone encounter Suhas Tami [facility] Start: 02-22-2022 End: 02-22-2022 ambulatory Suhas Garrett Other [employer] Other Start: 02-22-2022 Office outpatient vi sit 25 minutes Suhas Garrett [facility] Start: 02-21-2022 Patient encounter procedure Suhas Garrett Work Phone: [facility] [address] [place] Work Phone: Start: 02-20-2022 End: 02-21-2022 ambulatory MAYO CARBAJAL Facility: Start: 02-14-2022 End: 02-14-2022 ambulatory Suhas Garrett Other [employer] Other Start: 02-14-2022 Office outpatient vi sit 25 minutes Suhas Garrett [facility] [place] Start: 01-11-2022 End: 01-11-2022 ambulatory Suhas Garrett Other [employer] Other Start: 01-11-2022 Nursing evaluation o f patient and report Suhas Garrett [facility] [place] Start: 01-11-2022 Telephone encounter Suhas Garrett [facility] [place] Start: 12-26-2021 Office outpatient vi sit 10 minutes Suhas Garrett Work Phone: [facility] [address] DO Work Phone: Start: 12-26-[address] Suhas Garrett Facility: Start: 12-20-2021 End: 12-20-2021 ambulatory Suhas Garrett Other [employer] Other Start: 12-20-2021 Telephone encounter Suhas Garrett [facility] [place] Start: 12-13-2021 Office outpatient vi sit 25 minutes Suhas Garrett Work Phone: [facility] Work Phone: Start: 11-02-2021 End: 11-02-2021 ambulatory Suhas Garrett Other [employer] Other Start: 11-02-2021 Telephone encounter Suhas Garrett [facility] [place] Start: 10-01-2021 End: 10-01-2021 ambulatory Suhas Garrett Other [employer] Other Start: 10-01-2021 Office outpatient vi sit 15 minutes Suhas Garrett [facility] [place] Start: 09-10-2021 End: 09-10-2021 ambulatory Suhas Garrett Other [employer] Other Start: 09-10-2021 Telephone encounter Suhas Garrett [facility] [place] Start: 08-20-2021 End: 08-20-2021 ambulatory Suhas Garrett Other [employer] Other Start: 08-20-2021 Telephone encounter Suhas Garrett [facility] [place] Start: 08-02-2021 End: 08-02-2021 ambulatory Suhas Garrett Other [employer] Other Start: 08-02-2021 Office outpatient vi sit 15 minutes Suhas Garrett [facility] [place] Start: 07-25-2021 End: 07-25-2021 ambulatory Suhas Garrett Other [employer] Other Start: 07-25-2021 Telephone encounter Suhas Garrett [facility] [place] Start: 05-08-2021 End: 05-08-2021 ambulatory Suhas Garrett Other [employer] Other Start: 05-08-2021 Telephone encounter Suhas Garrett [facility] [place] Start: 04-26-2021 End: 04-26-2021 ambulatory Suhas Garrett Other [employer] Other Start: 04-26-2021 Office outpatient vi sit 25 minutes Suhas Garrett [facility] [place] Procedures Date Procedure Procedure Detail 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 Start: 12-21-2024 Echo tthrc r-t 2d w/ wom-mode compl spec&colr d Michel Wolf MD Work Phone: Start: 02-26-2023 Echocardiography [...] DTaP/Tdap/Td Vaccines (2 - Td or Tdap) [facility] Start: 01-26-2026 End: 01-26-2026 Patient encounter procedure 01/26/2026 11:00 AM EDT Office Visit [facility] [address] [place] [address] Michel Wolf MD [address] [place] [address] [facility] Start: 12-21-2025 Echocardiography Echocardiogram [facility] Start: 12-20-2025 End: 12-20-2025 Patient encounter procedure 12/20/2025 10:45 AM EDT Appointment [facility] [address] [place] [address] [facility] Start: 12-14-2025 End: 01-14-2027 Heart Transthoracic Transthoracic Echo Complete Echocardiography Routine Nonrheumatic aortic valve stenosis Expected: 12/14/2025 (Approximate), Expires: 01/14/[address] [facility] Service Area Work Phone: Comment on above: Expected: 12/14/2025 (Approximate), Expi res: 01/14/2027 Start: 08-07-2025 Medicare Annual Wellness Visit Medicare Annual Wellness Visit (AWV) [facility] Start: 02-10-2025 Echocardiography Echocardiogram [facility] Start: 02-07-2025 Influenza vaccination Influenza Vaccine (#1) [facility] Start: 01-14-2025 End: 04-16-2026 Heart Transthoracic Transthoracic Echo Complete Echocardiography Routine Aortic valve stenosis, etiology of cardiac valve disease unspecified Expected: 01/14/2025 (Approximate), Expires: 04/16/[address] [facility] Service Area Work Phone: Comment on above: Expected: 01/14/2025 (Approximate), Expi res: 04/16/2026 Start: 01-14-2025 End: 01-14-2025 Patient encounter procedure 01/14/2025 11:00 AM EDT Office Visit [address] [place] [address] Michel Wolf MD [address] [facility] [address] [place], [place] [id number] [facility] Start: 12-21-2024 End: 12-21-2024 Patient encounter procedure 12/21/2024 12:30 PM EDT Appointment [place] [id number] [facility] [address] [place] [id number] [facility] Start: 10-06-2024 COVID-19 Vaccine ( season) COVID-19 Vaccine () [facility] Start: 03-16-2024 End: 03-16-2024 Patient encounter procedure 03/16/2024 11:20 AM EDT Office Visit [place] [id number] [facility] [address] [place] [address] Michel Wolf MD 703 [facility], [address] [place] [address] [facility] Start: 02-19-2024 Screening for osteoporosis Bone Density Scan [facility] Start: 02-11-2024 End: 02-11-2024 Patient encounter procedure 02/11/2024 12:30 PM EDT Appointment [place] [id number] [facility] [address] [place] [address] [facility] Start: 02-08-2024 COVID-19 Vaccine () COVID-19 Vaccine () [facility] Start: 02-08-2024 Influenza vaccination Influenza Vaccine (#1) [facility] Start: 02-08-2024 End: 06-19-2025 US Heart Transthoracic Transthoracic Echo (TTE) Complete Echocardiography Routine Aortic valve stenosis, etiology of cardiac valve disease unspecified Expected: 02/08/2024 (Approximate), Expires: 06/19/[address] [facility] Service Area Work Phone: Comment on above: Expected: 02/08/2024 (Approximate), Expi res: 06/19/2025 Start: 06-19-2023 FUV, Provider: Michel Wolf, Status: Pen, Time: 11:00 AM FUV, Provider: Michel Wolf, Status: Pen, Time: 11:00 AM [facility] [address] DO Work Phone: Start: 05-28-2023 COVID-19 Vaccine (5 - Moderna series) COVID-19 Vaccine (5 - Moderna series) [facility] Start: 02-26-2023 ECHO, Provider: TATYANA HHVI ULTRASOUND 01,[id number], Status: Pen, Time: 10:45 AM ECHO, Provider: TATYANA [facility]VI ULTRASOUND 01,[id number], Status: Pen, Time: 10:45 AM [facility] [address] DO Work Phone: Start: 12-24-2022 FUV, Provider: Michel Wolf, Status: Pen, Time: 11:20 AM FUV, Provider: Michel Wolf, Status: Pen, Time: 11:20 AM [facility] Work Phone: Start: 02-21-2022 CAROTID, Provider: TATYANA HHVI ULTRASOUND 01,[id number], Status: Pen, Time: 12:30 PM CAROTID, Provider: TATYANA [facility]VI ULTRASOUND 01,[id number], Status: Pen, Time: 12:30 PM [facility] Work Phone: Start: 02-21-2022 ECHO, Provider: TATYANA HHVI ULTRASOUND 01,[id number], Status: Pen, Time: 10:45 AM ECHO, Provider: TATYANA [facility]VI ULTRASOUND 01,[id number], Status: Pen, Time: 10:45 AM [facility] Work Phone: Start: 01-17-2022 CAROTID, Provider: TATYANA [facility]VI ULTRASOUND 01,[id number], Status: Pen, Time: 2:30 PM CAROTID, Provider: TATYANA [facility]VI ULTRASOUND 01,[id number], Status: Pen, Time: 2:30 PM [facility] Work Phone: Start: 01-17-2022 ECHO, Provider: TATYANA HHVI ULTRASOUND 01,[id number], Status: Pen, Time: 1:30 PM ECHO, Provider: TATYANA [facility]VI ULTRASOUND 01,[id number], Status: Pen, Time: 1:30 PM [facility] Work Phone: Start: 12-26-2021 NURSEVST, Provider: MAGDA DANIEL COLLEGE INTERN 1,[id number], Status: Pen, Time: 11:00 AM NURSEVST, Provider: MAGDA DANIEL COLLEGE INTERN 1,[id number], Status: Pen, Time: 11:00 AM [facility] Work Phone: Start: 1996 Hepatitis B Vaccines (1 of 3 - Risk 3-dose series) Hepatitis B Vaccines (1 of 3 - Risk 3-dose series) [facility] Start: 08-11-1955 Hepatitis A Vaccines (1 of 2 - Risk 2-dose series) Hepatitis A Vaccines (1 of 2 - Risk 2-dose series) [facility] Start: 1936 Creatinine measurement Creatinine Level [facility] Start: 1936 Lipid panel Lipid Panel [facility] Start: 1936 Medicare Annual Wellness Visit Medicare Annual Wellness Visit (AWV) [facility] Start: 1936 Potassium measurement Potassium Level [facility] Start: 1936 Thyroid stimulating hormone measurement TSH Level [facility] ECG 12 Lead ECG 12 Lead ECG Routine 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 Ordered: 12/08/[address] [facility] Service Area Work Phone: Comment on above: Ordered: 12/08/2024 End: 02-11-2024 [facility] Service Area Work Phone: Comment on above: Once for 1 Occurrences starting 02/11/20 until 02/11/2024 Immunizations Immunization Date Immunization Notes Care Provider Raciel doug 04-23-2024 Pneumococcal conjuga te vaccine, 20-valent (PREVNAR 20) Michel Wolf MD Work Phone: [facility] Work Phone: 04-07-2024 Moderna COVID-19 vaccine, 12 years and older (50mcg/0.5mL)(Spikevax) Michel Wolf MD Work Phone: [facility] Work Phone: 04-07-2024 Seasonal trivalent influenza vaccine, adjuvanted, preservative free Michel Wolf MD Work Phone: [facility] Work Phone: 04-07-2024 influenza virus vaccine, unspecified formulation Reuben Burns PAPER CONE DRYING MACHINE OPERATOR-TRANSITION RN Work Phone: [facility] Work Phone: 06-07-2023 RESPIRATORY SYNCYTIA L VIRUS (RSV), ELIGIBLE PTS, 0.5 ML (ABRYSVO) Michel Wolf MD Work Phone: [facility] Work Phone: 04-02-2023 Influenza, Seasonal, Quadrivalent, Adjuvanted Michel Wolf MD Work Phone: [facility] Work Phone: 04-02-2023 Moderna COVID-19 vaccine, 12 years and older (50mcg/0.5mL)(Spikevax) Michel Wolf MD Work Phone: [facility] Work Phone: 04-02-2023 influenza virus vaccine, unspecified formulation Susie 2 [facility] Work Phone: 04-17-2022 Moderna COVID-19 Bivalent 50 MCG/0.5ML Intramuscular Suspension Suhas Garrett Work Phone: [facility] 250 DO Work Phone: 03-21-2022 Fluad Quadrivalent 0 .5 ML Intramuscular Prefilled Syringe Suhas Garrett Work Phone: [facility] 250 DO Work Phone: 03-21-2022 influenza, seasonal, injectable Suhas Garrett Other [facility] Learnerator Other 11-14-2021 Moderna COVID-19 Vaccine 100 MCG/0.5ML Intramuscular Suspension Suhas Garrett Work Phone: [facility] Work Phone: 04-05-2021 Moderna COVID-19 Vaccine 100 MCG/0.5ML Intramuscular Suspension Suhas Garrett Work Phone: [facility] Work Phone: 03-19-2021 influenza, seasonal, injectable Suhas Garrett Other [facility] Learnerator Other 08-08-2020 Moderna COVID-19 Vaccine 100 MCG/0.5ML Intramuscular Suspension Suhas Garrett Work Phone: [facility] Work Phone: 07-11-2020 Moderna COVID-19 Vaccine 100 MCG/0.5ML Intramuscular Suspension Suhas Garrett Work Phone: [facility] Work Phone: 04-28-2020 pneumococcal polysaccharide vaccine, 23 valent Suhas Garrett Other [facility] Other 03-06-2020 Seasonal trivalent influenza vaccine, adjuvanted, preservative free Suhas Garrett Work Phone: [facility] Work Phone: 03-06-2020 influenza, seasonal, injectable Suhas Kuns Other 60mo Other 02-08-2020 influenza virus vaccine, unspecified formulation Suhas P Kuns Work Phone: [facility] Work Phone: 02-08-2020 influenza, seasonal, injectable Suhas Kuns Other 60mo Other 05-04-2019 zoster vaccine recombinant Suhas Kuns Other 60mo Other 03-09-2019 influenza, high dose seasonal, preservative-free Suhas P Kuns Work Phone: [facility] Work Phone: 03-04-2019 influenza, seasonal, injectable Suhas Mayos Other 60mo Other 02-04-2019 zoster vaccine recombinant Suhas Kuns Other 60mo Other 05-12-2018 tetanus toxoid, redu bety diphtheria toxoid, and acellular pertussis vaccine, adsorbed Suhas Kuns Other 60mo Other 03-16-2018 Seasonal trivalent influenza vaccine, adjuvanted, preservative free Michel Wolf MD Work Phone: [facility] Work Phone: 03-09-2018 influenza virus vaccine, unspecified formulation Suahs P Kuns Work Phone: [facility] Work Phone: 04-09-2017 influenza virus vaccine, unspecified formulation Suhas P Kuns Work Phone: [facility] Work Phone: 03-28-2017 Seasonal trivalent influenza vaccine, adjuvanted, preservative free Suhas P Kuns Work Phone: [facility] Work Phone: 05-24-2016 pneumococcal conjuga te vaccine, 13 valgladys Wolf MD Work Phone: [facility] Work Phone: 05-23-2016 pneumococcal conjuga te vaccine, 13 valent Suhas Garrett Other [facility] Learnerator Other 04-01-2016 Seasonal trivalent influenza vaccine, adjuvanted, preservative free Suhas Dalton Garrett Work Phone: [facility] Work Phone: 03-09-2016 influenza virus vaccine, unspecified formulation Suhas Garrett Work Phone: [facility] Work Phone: 03-09-2016 pneumococcal conjuga te vaccine, 13 valent Suhas Garrett Work Phone: [facility] Work Phone: 04-07-2015 influenza, injectabl e, quadrivalent, contains preservative Suhas P Tami Work Phone: [facility] Work Phone: 03-09-2015 influenza virus vaccine, unspecified formulation Suhas P Tami Work Phone: [facility] Work Phone: 04-05-2014 influenza, seasonal, injectable, preservative free Suhas Garrett Work Phone: [facility] Work Phone: 03-09-2014 influenza virus vaccine, whole virus Suhas Garrett Work Phone: [facility] Work Phone: 03-23-2013 influenza, seasonal, injectable Suhas P Gaels Work Phone: [facility] Work Phone: 03-09-2013 influenza virus vaccine, unspecified formulation Suhas P Tami Work Phone: [facility] Work Phone: 04-14-2012 influenza, injectabl e, quadrivalent, contains preservative Suhas Garrett Other [facility] Other 06-09-2011 influenza virus vaccine, unspecified formulation Suhas Garrett Work Phone: [facility] Work Phone: 06-09-2010 influenza virus vaccine, unspecified formulation Suhas Garrett Work Phone: [facility] Work Phone: 06-09-2009 influenza virus vaccine, unspecified formulation Suhas Garrett Work Phone: [facility] Work Phone: 05-30-2009 novel [id number], preservative-free, injectable Suhas Garrett Work Phone: [facility] Work Phone: 10-19-2007 varicella virus vaccine Belkys Garrett Work Phone: [facility] Work Phone: 06-09-2006 pneumococcal polysaccharide vaccine, 23 valent Suhas Garrett Work Phone: [facility] Work Phone: Payers Date Payer Category Payer Self-pay 2022 Managed Care (Private) [facility] [id number] 2022 Private Health Insurance [id number] 2001 Medicare [id number] 2001 Unknown 1959 Medicare [id number] 1959 Private Health Insurance [id number] 1936 Unknown [id number] [id number]. 2.593 1936 Unknown [id number] 2.16840.1.806901.3.579. 2.356 1936 Unknown [id number] 2.840.1.067508.3.579. 2.356 1936 Unknown [id number] 2.840.1.989673.3.579. 2.1068 1936 Unknown [id number] 2.840.1.464782.3.579. 2.1246 1936 Unknown [id number] 2.840.1.718753.3.579. 2.1246 1936 Unknown [id number] 2.840.1.938774.3.579. 2.1244 1936 Unknown [id number] 2.16840.1.286115.3.579. 2.1244 1936 Unknown [id number] 2.16840.1.252814.3.579. 2.1244 1936 Unknown [id number] 2.16840.1.238142.3.579. 2.196 1936 Unknown [id number] 2.16840.1.827841.3.579. 2.196 1936 Unknown [id number] 2.16.840.1.497472.3.579. 2.196 1936 Unknown [id number] 2.16.840.1.255559.3.579. 2.196 Unknown [id number] 2.16.840.1.209826.3.579. 2.531 Unknown [id number] 2.16.840.1.132265.3.579. 2.531 Unknown [id number] 2.16.840.1.415656.3.579. 2.531 Unknown [id number] 2.16.840.1.646645.3.579. 2.531 Social History Date Type Detail Facility Unknown if ever smoked 60mo Other Start: 06-19-2023 End: 01-14-2025 Sex Assigned At [employer] Other Start: 06-19-2023 End: 01-14-2025 Caffeine use Caffeine use [facility] Work Phone: Start: 06-19-2023 Tobacco smoking stat [facility] Never smoked tobacco [facility] Work Phone: Start: 06-19-2023 Tobacco use and exposure Smokeless tobacco non-user [facility] Work Phone: Start: 1935 [facility] Start: 06-09-2023 End: 04-16-2024 Exposure to SARS-CoV-2 (event) Not sure [facility] Start: 04-16-2024 End: 01-14-2025 Alcoholic beverage intake Current drinker of alcohol (finding) [facility] Work Phone: Start: 05-03-2022 Sex Female [facility] Clinical Notes 02-15-2015 to 01-14-2025 Michel Wolf MD - 01/14/2025 11:00 AM EDTPatient InstructionsAttachThelma Burns APRN-TRANSITION RN - 12/07/2024 3:00 PM EDTPatient Angeles Wolf MD - 04/16/2024 1:30 PM EST [...] Scribe Attestation By signing my name below, Richelle Sparks LPN , Scribe attest that this documentation has been prepared under the direction and in the presence of Michel Wolf MD. Provider Attestation - Scribe documentation All medical record entries made by the Scribe were at my direction and personally dictated by me. I have reviewed the chart and agree that the record accurately reflects my personal performance of the history, physical exam, discussion and plan. documented in this encounter [facility] Work Phone: 01-14-2025 Instructions Richelle Frey LPN [...] be sent through Care Everywhere.Heart Healthy Diet (Greenlandic)documented in this encounter [facility] Work Phone: 12-07-2024 History of Present illness [...] documented in patient record. Reuben Burns MSN, PAPER CONE DRYING MACHINE OPERATOR-TRANSITION RN, PMHNP-[facility] [place], [place] Please excuse any errors in grammar or translation related to this dictation. Voice recognition software was utilized to prepare this document. documented in this encounter [facility] Work Phone: 12-07-2024 Instructions JENNYFER Garsia - [...] Wolf as scheduled documented in this encounter [facility] Work Phone: 12-07-2024 Miscellaneous Notes Addended by: REUBEN BURNS on: 12/08/2024 02:08 PM Modules accepted: Orders documented in this encounter [facility] Work Phone: 12-07-2024 Note Addended by: REUBEN BURNS on: 12/08/2024 02:08 PM Modules accepted: Orders [facility] Work Phone: 04-16-2024 History of Present illness [...] other systems reviewed and are negative. Vitals: 04/16/24 1316 BP: 120/62 BP Location: Left arm [...] Attestation By signing my name below, I, Sherin Stearns LPN , Scribe attest that this documentation has been prepared under the direction and in the presence of Michel oWlf MD. Provider Attestation - Scribe documentation All medical record entries made by the Scribe were at my direction and personally dictated by me. I have reviewed the chart and agree that the record accurately reflects my personal performance of the history, physical exam, discussion and plan. documented in this encounter [facility] Work Phone: 04-16-2024 Instructions Sherin Mendez LPN [...] month follow up documented in this encounter [facility] Work Phone: 07-18-2023 Evaluation note Encounter Date Diagnosis Assessment Notes Jul, PMR (polymya lgia rheumati ca) (ICD-10 - M35.3) 60mo Other 02-06-2024 Evaluation note* Encounter Date Diagnosis Assessment Notes Treatment Notes Treatment Clinical Notes Jul, PMR (polymyalgia rheumatica) (ICD-10 - M35.3) 60mo Other 02-01-2024 Evaluation note* Encounter Date Diagnosis Assessment Notes Treatment Notes Treatment Clinical Notes Jul, Hypothyroidism (ICD-10 - E03.9) 60mo Other 01-29-2024 Evaluation note* Encounter Date Diagnosis Assessment Notes Treatment Notes Treatment Clinical Notes Jun, Hypothyroidism (ICD- 10 - E03.9) Jun, Hyperthyroidism (ICD-10 - E05.90) 60mo Other 01-26-2024 Evaluation note* Encounter Date Diagnosis [...] medications in combination with eachother. Also discussed correction steriod use in regards to her condition. [...] requires sooner she is welcome to call. 60mo Other 01-11-2024 Evaluation note* Encounter Date Diagnosis Assessment Notes Treatment Notes Treatment Clinical Notes Jun, PMR (polymyalgia rheumatica) (ICD-10 - M35.3) 60mo Other 01-11-2024 History of Present illness Narrative* Michel Wolf MD - 06/19/2023 11:00 AM EST [...] PCP. The prednisone is being tapered gradually Michel Wolf MD, FAC Review of Systems All other systems reviewed [...] the direction and in the presence of Michel Wolf MD. documented in this [facility] Work Phone: [phone] 506-231501-11-2024 Instructions* Patient Instructions* Yevgeniy Cortez MA - [...] time of your visit. [facility] Work Phone: [phone] Evaluation note* Encounter Date Diagnosis Assessment Notes [...] recommend the patient get the RSV vaccine. 60mo Other 12-20-2023 Evaluation note* Encounter Date Diagnosis Assessment Notes Treatment Notes Treatment Clinical Notes May, Hypertension (ICD-10 - I10) May, Hypothyroidism (ICD-10 - E03.9) 60mo Other 11-10-2023 Evaluation note* Encounter Date Diagnosis Assessment Notes Treatment Notes Treatment Clinical Notes Apr, PMR (polymyalgia rheumatica) (ICD-10 - M35.3) 60mo Other 09-22-2023 Evaluation note* Encounter Date Diagnosis Assessment Notes Treatment Notes Treatment Clinical Notes Feb, PMR (polymyalgia rheumatica) (ICD-10 - M35.3) She was encouraged to take 2.5mg daily. Patient is agreeable. Feb, Hypertension (ICD-10 - I10) Blood pressure is satisfactory, she is to follow with cardiology as scheduled. 60mo Other 08-21-2023 Evaluation note* Encounter Date Diagnosis Assessment Notes Treatment Notes Treatment Clinical Notes Jan, Hypertension (ICD-10 - I10) 60mo Other 06-30-2023 Evaluation note* Encounter Date Diagnosis [...] would like to do. Patient is agreeable. 60mo Other 04-14-2023 Evaluation note* Encounter Date Diagnosis [...] tablets daily. We will continue to monitor. 60mo Other 03-08-2023 Evaluation note* Encounter Date Diagnosis Assessment Notes Treatment Notes Treatment Clinical Notes Aug, PMR (polymyalgia rheumatica) (ICD-10 - M35.3) 60mo Other 02-13-2023 Evaluation note* Encounter Date Diagnosis [...] states she has an upcoming appointment with tobacco stripping machine operator and she will discuss making medication changes at that time. 60mo Other 11-09-2022 Evaluation note* Encounter Date Diagnosis [...] can cut Apr, Hyperlipidemia (ICD-10 - E78.5) 60mo Other 11-02-2022 Evaluation note* Encounter Date Diagnosis Assessment Notes Treatment Notes Treatment Clinical Notes Apr, PMR (polymyalgia rheumatica) (ICD-10 - M35.3) 60mo Other 10-26-2022 Evaluation note* Encounter Date Diagnosis Assessment Notes Treatment Notes Treatment Clinical Notes Mar, Lumbar back pain (ICD-10 - M54.50) 60mo Other 09-20-2022 Evaluation note* Encounter Date Diagnosis Assessment Notes Treatment Notes Treatment Clinical Notes Feb, Elevated liver function tests (ICD-10 - R79.89) 60mo Other 09-16-2022 Evaluation note* Encounter Date Diagnosis Assessment Notes Treatment Notes Treatment Clinical Notes Feb, Acute pain of left shoulder (ICD-10 - M25.512) [facility] report reviewed from 02/20/22 . The [...] pain (ICD-10 - R10.13) The patient advised [place] could be causing her GI upset , [...] month [place] at her next office visit. 60mo Other 09-08-2022 Evaluation note* Encounter Date Diagnosis [...] (ICD-10 - M85.80) Noted on Lumbar x-ray. 60mo Other 08-05-2022 Evaluation note* Encounter Date Diagnosis Assessment Notes Treatment Notes Treatment Clinical Notes Jan, COVID-19 (ICD-10 - U07.1) 60mo Other 08-05-2022 Evaluation note* Encounter Date Diagnosis Assessment Notes Treatment Notes Treatment Clinical Notes Jan, Cough (ICD-10 - R05.9) In house covid test is positive. Treatment plan discussed in TE. 60mo Other 07-14-2022 Evaluation note* Encounter Date Diagnosis Assessment Notes Treatment Notes Treatment Clinical Notes Dec, PMR (polymyalgia rheumatica) (ICD-10 - M35.3) 60mo Other 05-27-2022 Evaluation note* Encounter Date Diagnosis Assessment Notes Treatment Notes Treatment Clinical Notes October, PMR (polymyalgia rheumatica) (ICD-10 - M35.3) 60mo Other 04-25-2022 Evaluation note* Encounter Date Diagnosis [...] The patient encourged to continue following with tobacco stripping machine operator annually in December as scheduled. I did forward a copy of most current blood work results . 60mo Other 04-04-2022 Evaluation note* Encounter Date Diagnosis Assessment Notes Treatment Notes Treatment Clinical Notes Sep, PMR (polymyalgia rheumatica) (ICD-10 - M35.3) Sep, Hypertension (ICD-10 - I10) 60mo Other 02-24-2022 Evaluation note* Encounter Date Diagnosis [...] if needed. We will continue to montior. 60mo Other 02-16-2022 Evaluation note* Encounter Date Diagnosis Assessment Notes Treatment Notes Treatment Clinical Notes Jul, PMR (polymyalgia rheumatica) (ICD-10 - M35.3) 60mo Other 11-30-2021 Evaluation note* Encounter Date Diagnosis Assessment Notes Treatment Notes Treatment Clinical Notes Apr, PMR (polymyalgia rheumatica) (ICD-10 - M35.3) 60mo Other 11-18-2021 Evaluation note* Encounter Date Diagnosis [...] Hypothyroidism (ICD-10 - E03.9) Blood work ordered. 60mo Other [id number] History general Narrative - Reported* Type Description Date Medical History Shingles Medical History 02-15-15-mammogram-negativ e Medical History [id number]-jkdvjlvluuv-[id number], repea t in 3 yrs Medical History 03/2017- colonoscopy- normal Medical History f/u with cardiology [facility] Medical History ECHO 09/2016 Surgical History Appendectomy Surgical History Gallbladder Removal Surgical History Ovarian Cyst Removal Surgical History Coccyx repair Surgical History Cataracts Bilateral Eyes Surgical History thyroidectomy Dr. Forbes 10/14/2019 Hospitalization History Childbirth x5 Hospitalization History See Above 60mo Other Evaluation noteNo InformationNort m2M Strategies Other Evaluation note* Diagnosis Aortic valve stenosis, etiology of cardiac valve disease unspecified Essential hypertension Unspecified essential hypertension Hyperlipidemia, unspecified hyperlipidemia type Never smoked any substance documented in this encounter [facility] Work Phone: Evaluation note* Diagnosis Aortic valve stenosis, etiology of cardiac valve disease unspecified- Primary Essential hypertension Unspecified essential hypertension Hyperlipidemia, unspecified hyperlipidemia type Never smoked any substance BMI 26.0-26.9,adult Hypothyroidism, unspecified type documented in this encounter [facility] Work Phone: Evaluation note* Diagnosis Nonrheumatic aortic valve stenosis Aortic valve stenosis, etiology of cardiac valve disease unspecified documented in this encounter [facility] Work Phone: Evaluation note* Diagnosis 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- Primary BMI 26.0-26.9,adult documented in this encounter [facility] Work Phone: Evaluation note* Diagnosis Aortic valve stenosis, etiology of cardiac valve disease unspecified documented in this encounter [facility] Work Phone: Evaluation note* Diagnosis Nonrheumatic aortic valve stenosis- Primary 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 Hyperlipidemia, unspecified hyperlipidemia type PMR (polymyalgia rheumatica) (Multi) Polymyalgia rheumatica Hypothyroidism, unspecified type BMI 27.0-27.9,adult Never smoked any substance Overweight documented in this encounter [facility] Work Phone: Reason for visit Narrative* CV Imaging (Routine) - Authorized Specialty Diagnoses / Procedures Referred By Contac t Referred To Contact Cardiology Diagnoses Aortic valve stenosis, etiology of cardiac valve disease unspecified Procedures Transthoracic Echo Complete [place] ECHO TTHRC R-T 2D W/WOM-MODE COMPL SPEC&COLR D Michel Wolf MD [address] [place] [address] Phone: tel: fax: Referral ID Status Reason Start Date Expiration Date Visits Requested Visits Authorized [id number] Authorized Perform Procedure 04/16/2024 04/16/2025 1 1 [facility] Work Phone: Chief Complaint * [...] The prednisone is being tapered gradually * Michel Wolf MD, FACC * LAVONNE VILLATORO is [...] The prednisone is being tapered gradually * Michel Wolf MD, FACC * LAVONNE VILLATORO is [...] The prednisone is being tapered gradually * Michel Wolf MD, FACC * LAVONNE VILLATORO is [...] The prednisone is being tapered gradually * Michel Wolf MD, [facility] Family History No Family History Records FoundUnknown [...] PMR (polymyalgia rhe umatica) (M35.3) Referral Organization [facility] Family [facility] [place] Referring Provider First Name Suhas Referring Provider Last Name Tami Referring Provider Specialty Family Prac sukhjinder Referred Organization [facility] Referred Address [address] [place],[address] Referred Provider Specialty Rheumatology Referral Priority Routine General Notes Zaida Tinsley 10:11:01 AM >received today, completed referral form and faxed to their referring physicians department. Patient will be contacted by the CC to schedule her appointment. Specialty Diagnoses / Procedures Referred By Alberto jiménez Referred To Contact Cardiology Diagnoses Aortic valve stenosis, etiology of cardiac valve disease unspecified Procedures Transthoracic Echo (TTE) Complete [place] ECHO TTHRC R-T 2D W/WOM-MODE COMPL SPEC&COLR D Michel Wolf MD [address] [facility] 2, [address] [address] Referral ID Status Reason Start Date Expiration Date Visits Requested Visits Authorized Pending Review Perform Procedure 06/19/2023 06/18/2024 1 1 Specialty Diagnoses / Procedures Referred By Alberto jiménez Referred To Contact Cardiology Diagnoses Aortic valve stenosis, etiology of cardiac valve disease unspecified Procedures Follow Up In Cardiology Michel Wolf MD 703 [facility] 2, [address] [address] Michel Wolf MD [address] [place] [address] 2, [address] [address] Referral ID Status Reason Start Date Expiration Date V isits Requested Visits Authorized [id number] Authorized 06/19/2023 06/18/2024 1 1 Additional Source Comments REASON FOR VISIT (unrecogniz ed section and content) Reason Comments Follow-up 9 month, echocardiog taz results Specialty Diagnoses / Procedures Referred By Elizabethac t Referred To Contact Cardiology Diagnoses Aortic valve stenosis, etiology of cardiac valve disease unspecified Procedures Follow Up In Cardiology Michel Wolf MD [address] [place] [address] 2, [address] [address] Phone: tel: fax: Michel Wolf MD [address] [place] [address] 2, [address] [address] Phone: tel: fax: Referral ID Status Reason Start Date Expiration Date V isits Requested Visits Authorized [id number] Authorized 04/16/2024 04/16/2025 1 1 Reason Comments Follow-up 6m Reason Comments Follow-up 9m Referral ID Status Reason Start Date Expiration Date V isits Requested Visits Authorized [id number] Authorized 06/19/2023 06/18/2024 1 1 Specialty Diagnoses / Procedures Referred By Contac t Referred To Contact Cardiology Diagnoses Nonrheumatic aortic valve stenosis Procedures Transthoracic Echo (TTE) Complete MN ECHO TRANSTHORC R-T 2D W/WO M-MODE REC F-UP/LMTD MN DOP ECHOCARD COLOR FLOW VELOCITY MAPPING MN DOP ECHOCARD PULSE WAVE W/SPECTRAL F-UP/LMTD STD Michel Wolf MD 703 [facility] 2, [address] [address] Referral ID Status Reason Start Date Expiration Date Visits Requested Visits Authorized [id number] Authorized Perform Procedure 03/03/2023 08/30/2023 1 1 Reason Comments Pre-op Clearance POC for spinal cord stimulator, scheduled 12.13.[address] Weston. INFORMATION SOURCE (unrecogn ized section and content) DATE CREATED AUTHOR 03/06/2022 [facility] DATE CREATED AUTHOR AUTHOR'S ORGANIZ ATION 12/25/2022 [facility] DATE CREATED AUTHOR AUTHOR'S ORGANIZ ATION 12/25/2022 [facility] DATE CREATED AUTHOR AUTHOR'S ORGANIZ ATION 03/03/2023 [facility] DATE CREATED AUTHOR AUTHOR'S ORGANIZ ATION 07/29/2024 [facility] DATE CREATED AUTHOR AUTHOR'S ORGANIZ ATION 12/25/2024 [facility] DATE CREATED AUTHOR AUTHOR'S ORGANIZ ATION 01/16/2025 [facility] DATE CREATED AUTHOR AUTHOR'S ORGANIZ ATION 02/20/2025 [facility] Care Teams (unrecognized sec tion and content) Crowning Inspector Relationship Specialty Start Date End Date Suhas [place] DO PCP - General 06/09/99 Crowning Inspector Relationship Specialty Start Date End Date Suhas [place] DO [address] [place] [address] PCP - General Family Medicine 01/30/24 Crowning Inspector Relationship Specialty Start Date End Date Suhas [place] DO [address] [place] [address] PCP - General Family Medicine 01/30/24 Crowning Inspector Relationship Specialty Start Date End Date Suhas [place] DO [address] [place] [address] PCP - General Family Medicine 01/30/24 Crowning Inspector Relationship Specialty Start Date End Date Suhas [place] DO [address] [place] [address] PCP - General Family Medicine 01/30/24 Crowning Inspector Relationship Specialty Start Date End Date Suhas [place] DO [address] [place] [address] PCP - General Family Medicine 01/30/24 FOR [...] THE PRIMARY CLINICAL RECORDS. [facility]. provides no warranty or guarantee of the accuracy or completeness of information in this document.
== END 2025-02-21 13:31 | disposition home or self-care (01) ==
LOC: PM 13:30
PROVIDERS: PCP Family Medicine; Visit Provider Anesthesiology
DX: M48.062 Spinal stenosis, lumbar region with neurogenic claudication (principal)

== ENCOUNTER 2025-03-24 10:24 | Outpatient (OUT) | payer MEDICARE, OTHER, SELFPAY ==
--- OUTSIDE RECORDS SUMMARY | 2025-03-24 10:29 | XMS_ITS | Encounter Summary ---
Author Organization [facility] Address [address] [place] [address] Phone Care Team Providers Care Director Of Academic Name Role Phone Suhas Arizmendi DO Primary Care Provider [phone] Suhas Arizmendi DO Primary Care Provider [phone] Encounter Details Date Type Department Care Team (Late st Contact Info) Description 09/03/2023 Scanned Document [facility] [address] [place] [phone] Scanning, Generic Provider Social History Tobacco Use [...] Info) Description 12/20/2025 10:45 AM EDT Appointment [address] [place] [address] 01/26/2026 11:00 AM EDT Office Visit [address] [place] [address] Michel Wolf MD 703 [facility] 2, [facility] [address] [place] [address] documented as of this encounter Visit Diagnoses Not on filedocumented in this encounter Additional Health Concerns Assessment Noted Time A fall risk assessment has been complete d for the patient 06/19/2023 11:09 AM EST documented as of this encounter Care Teams Director Of Academic Relationship Specialty Start Date End Date Suhas Arizmendi DO PCP - General 06/09/99 01/29/24 Suhas Arizmendi DO [facility] [address] [place] [id number] PCP - General Family Medicine 01/30/24 documented as of this encounter
--- OUTSIDE RECORDS SUMMARY | 2025-03-24 10:29 | XMS_ITS | Encounter Summary ---
Author Organization [facility] Address [address] [place] [address] Phone Care Team Providers Care Agriculture Worker Name Role Phone Suhas Arizmendi DO Primary Care Provider [phone] Suhas Arizmendi DO Primary Care Provider [phone] Encounter Details Date Type Department Care Team (Late st Contact Info) Description 12/18/2020 Orders Only [facility] LEGACY [address] [place] [address] Conversion, Onbase Social History Tobacco Use Types [...] Info) Description 12/20/2025 10:45 AM EDT Appointment [address] [place] [address] 01/26/2026 11:00 AM EDT Office Visit [address] [place] [address] Michel Wolf MD 703 [facility] 2, [address] [place] [address] Scheduled Orders Name Type Priority Associated Diagnoses Orde r Schedule OUTSIDE LAB SCAN Lab Ordered: 12/18/2020 OUTSIDE LAB SCAN Lab Ordered: 12/18/2020 documented as of this encounter Visit Diagnoses Not on filedocumented in this encounter Care Teams Agriculture Worker Relationship Specialty Start Date End Date Suhas Arizmendi DO PCP - General 06/09/99 01/29/24 Suhas Arizmendi DO [address] [place] [address] PCP - General Family Medicine 01/30/24 documented as of this encounter
--- OUTSIDE RECORDS SUMMARY | 2025-03-24 10:29 | XMS_ITS | Clinical Summary ---
Author Organization [facility] Address [address] [place] [address] Care Team Providers Care Radiologic Technologist Chief Name Role Phone Suhas Arizmendi DO Unavailable Suhas Arizmendi DO Primary Care Provider [phone] Allergies Active Allergy Reactions Criticality Noted Date [...] once a day 0 03/29/2005 Active VIT [id number] ACID-MAG OX 100 UNIT-2.05 MG TAB Vit [...] 75+ series) 08/11/2011 Advance Directive Discussion 06/09/2024 Covid-19 Vaccine (1 - 2024- season) 2025 Influenza Vaccine (#1) 2025 Insurance MEDICARE [employer]ILRO[employer] Care Teams Radiologic Technologist Chief Relationship Specialty Start Date End Date Suhas Arizmendi DO [address] [place] [address] PCP - General Family Medicine 07/23/23 Suhas Arizmendi DO [address] [place] [address] Referring Family Medicine 07/23/23
--- OUTSIDE RECORDS SUMMARY | 2025-03-24 10:29 | XMS_ITS | Clinical Summary ---
Author Organization [facility] Address [address] [place] [address] Care Team Providers Care Mechanical Product Design Engineer Name Role Phone Unavailable Primary Care Provider [...] of Treatment Not on [place] [phone]
--- OUTSIDE RECORDS SUMMARY | 2025-03-24 10:29 | XMS_ITS | Encounter Summary ---
Author Organization [facility] Address [address] [place] [address] Phone Care Team Providers Care Advanced Practice Provider Name Role Phone Suhas Arizmendi DO Primary Care Provider [phone] Suhas Arizmendi DO Primary Care Provider [phone] Encounter Details Date Type Department Care Team (Late st Contact Info) Description 02/26/2023 Scanned Document [facility] LEGACY [address] [place] [address] Conversion, Onbase Social History Tobacco Use Types [...] Info) Description 12/20/2025 10:45 AM EDT Appointment [place] [address] [facility] [address] [place] [address] 01/26/2026 11:00 AM EDT Office Visit [address] [place] [phone] Michel Wolf MD 703 [facility] 2, [address] [place], [place] [phone] documented as of this encounter Procedures Procedure Name Priority Date/Time Associated Diagnosis Comments ECHOCARDIOGRAM 02/26/2023 documented in this encounter Results * ECHOCARDIOGRAM (02/26/2023) Narrative 02/26/2023 Ordered by an unspecified provider. us Onbase Conversion CV ECHO PROCEDURES Final Resul t documented in this encounter Visit Diagnoses Not on filedocumented in this encounter Care Teams Advanced Practice Provider Relationship Specialty Start Date End Date Suhas Arizmendi DO PCP - General 06/09/99 01/29/24 Suhas Arizmendi DO [address] [place] [address] PCP - General Family Medicine 01/30/24 documented as of this encounter
--- OUTSIDE RECORDS SUMMARY | 2025-03-24 10:29 | XMS_ITS | Encounter Summary ---
Author Organization [facility] Address [address] [place] [address] Phone Care Team Providers Care Chief Solution Architect Name Role Phone Suhas Arizmendi DO Primary Care Provider [phone] Suhas Arizmendi DO Primary Care Provider [phone] Encounter Details Date Type Department Care Team (Late st Contact Info) Description 10/14/2023 Scanned Document [facility] [address] [place] [phone] Scanning, Generic Provider Social History Tobacco Use [...] Description 12/20/2025 10:45 AM EDT Appointment [address] [place] [address] 01/26/2026 11:00 AM EDT Office Visit [address] [place] [address] Michel Wolf MD 703 [facility] 2, [address] [place] [address] Scheduled Orders Name Type Priority Associated Diagnoses Orde r Schedule Ultrasound- OnBase Scan Imaging O rdered: 10/14/2023 documented as of this encounter Visit Diagnoses Not on filedocumented in this encounter Additional Health Concerns Assessment Noted Time A fall risk assessment has been complete d for the patient 06/19/2023 11:09 AM EST documented as of this encounter Care Teams Chief Solution Architect Relationship Specialty Start Date End Date Suhas Arizmendi DO PCP - General 06/09/99 01/29/24 Suhas Arizmendi DO [address] [place] [address] PCP - General Family Medicine 01/30/24 documented as of this encounter
--- OUTSIDE RECORDS SUMMARY | 2025-03-24 10:29 | XMS_ITS | Encounter Summary ---
Author Organization [facility] Address [address] [place] [id number] Phone Care Team Providers Care Cyber Software Engineer Name Role Phone Suhas Arizmendi DO Primary Care Provider [phone] Suhas Arizmendi DO Primary Care Provider [phone] Encounter Details Date Type Department Care Team (Late st Contact Info) Description 04/19/2019 Orders Only [facility] LE[facility]Y [address] [place] [address] Conversion, Onbase Social History Tobacco Use Types [...] Info) Description 12/20/2025 10:45 AM EDT Appointment [address] [place] [address] 01/26/2026 11:00 AM EDT Office Visit [address] [place] [phone] Michel Wolf MD 703 [facility] 2, [address] [place], [place] [phone] Scheduled Orders Name Type Priority Associated Diagnoses Orde r Schedule OUTSIDE LAB SCAN Lab Ordered: 04/19/2019 documented as of this encounter Visit Diagnoses Not on filedocumented in this encounter Care Teams Cyber Software Engineer Relationship Specialty Start Date End Date Suhas Arizmendi DO PCP - General 06/09/99 01/29/24 Suhas Arizmendi DO [place] [address] PCP - General Family Medicine 01/30/24 documented as of this encounter
--- OUTSIDE RECORDS SUMMARY | 2025-03-24 10:29 | XMS_ITS | Clinical Summary ---
Author Organization [facility] Address [address] [place] [address] Phone Care Team Providers Care Life Skills Coordinator Volunteer Name Role Phone Suhas Arizmendi Dalton TYLER Primary Care Provider [phone] Allergies Active Allergy Reactions Criticality Noted Date [...] 06/04/2023 Murmur, cardiac 06/04/2023 PMR (polymyalgia rheumatica) 06/04/2023 Encounters Date Type Department Care Team Description 01/14/2025 11:00 AM EDT Office Visit [address] [place] [address] Michel Wolf MD Nonrheumatic aortic valve stenosis (Primary Dx); 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; Hyperlipidemia, unspecified hyperlipidemia type; PMR (polymyalgia rheumatica) ([facility]); Hypothyroidism, unspecified type; BMI 27.0-27.9,adult; Never smoked any substance; Overweight 01/14/2025 Travel 12/22/2024 Results [facility] 703 [facility] [address] [place] [address] Shaniqua Daniels LPN Transthoracic Echo Complete from Last 3 Months Immunizations Immunization Administration [...] blue cap/uribe label *Check age/dose* 04/17/2022 Novel [id number], preservative-free 05/30/2009 Pneumococcal conjugate vacci ne, 13-valent [...] Info) Description 12/20/2025 10:45 AM EDT Appointment [facility] 703 [facility] [address] [place] [address] 01/26/2026 11:00 AM EDT Office Visit [facility] 703 [facility] [address] [place] [address] Michel Wolf MD 703 [facility] 2, [address] [place] [address] Health Maintenance Due Date Last Done Comments Lipid Panel 1936 TSH Level 1936 Hepatitis A Vaccines (1 of 2 - Risk 2-dose series) 08[birth year]11/1954 Hepatitis B Vaccines (1 of 3 - Risk 3-dose series) 1996 Bone Density Scan 02/19/2024 02/18/2022 Influenza Vaccine (#1) 2025 , 04/02/2023, 03/21/2022, Additional history exists COVID-19 Vaccine ( season) 2025 04/07/2024, 04/02/2023, 04/17/2022, Additional history exists Medicare Annual Wellness Visit [...] patient's age to complete this topic Insurance [facility] Care Teams Life Skills Coordinator Volunteer Relationship Specialty Start Date End Date Suhas Arizmendi DO [address] [place] [address] PCP - General Family Medicine 01/30/24
--- OUTSIDE RECORDS SUMMARY | 2025-03-24 10:29 | XMS_ITS | Encounter Summary ---
Author Organization [facility] Address [address] [place] [address] Phone Care Team Providers Care Railway Signal Electrician Name Role Phone Suhas Arizmendi DO Primary Care Provider [phone] Suhas Arizmendi DO Primary Care Provider [phone] Encounter Details Date Type Department Care Team (Late st Contact Info) Description 11/08/2019 Orders Only [facility] LEGACY [address] [place] [address] Conversion, Onbase Social History Tobacco Use Types [...] Info) Description 12/20/2025 10:45 AM EDT Appointment [address] [place] [address] 01/26/2026 11:00 AM EDT Office Visit [address] [place] [address] Michel Wolf MD 703 [facility] 2, [address] [place], [place] [phone] Scheduled Orders Name Type Priority Associated Diagnoses Orde r Schedule OUTSIDE LAB SCAN Lab Ordered: 11/08/2019 documented as of this encounter Visit Diagnoses Not on filedocumented in this encounter Care Teams Railway Signal Electrician Relationship Specialty Start Date End Date Suhas Arizmendi DO PCP - General 06/09/99 01/29/24 Suhas Arizmendi DO [facility]note 2] [place] [address] PCP - General Family Medicine 01/30/24 documented as of this encounter
--- OUTSIDE RECORDS SUMMARY | 2025-03-24 10:29 | XMS_ITS | Encounter Summary ---
Author Organization [facility] Address [address] [place] [address] Phone Care Team Providers Care Cement And Concrete Plant Worker Name Role Phone Suhas Arizmendi Primary Care Provider Encounter Details Date Type Department Care Team (Late st Contact Info) Description 11/29/2024 Scanned Document [facility] [address] [place] [phone] Scanning, Generic Provider Social History Tobacco Use [...] Info) Description 12/20/2025 10:45 AM EDT Appointment [address] [place] [address] 01/26/2026 11:00 AM EDT Office Visit [address] [place] [address] Michel Wolf MD 703 [facility] 2, [address] [place] [address] documented as of this encounter Visit Diagnoses Not on filedocumented in this encounter Additional Health Concerns Assessment Noted Time A fall risk assessment has been complete d for the patient 06/19/2023 11:09 AM EST documented as of this encounter Care Teams Cement And Concrete Plant Worker Relationship Specialty Start Date End Date Suhas Arizmendi DO [address] [place] [id number] PCP - General Family Medicine 01/30/24 documented as of this encounter
--- OUTSIDE RECORDS SUMMARY | 2025-03-24 10:38 | XMS_ITS | CCD ---
Author Organization [facility] Care Team Providers Care Jewel Inserter Name Role Phone Suhas Garrett Unavailable Suhas [...] Wolf, Dr. Shy Agosto Referring Radha vailable Kunadan, Dr. Suhas Liang Primary Care Unavaila ble SHY WOLF Attending Unavail able Suhas Garrett DO Primary Care Provider Suhas Garrett DO Primary Care Provider [phone] Suhas Garrett Primary Care Unavailable Suhas Garrett Admitting Unavailable KunSuhas arellano Attending Unavailable KunSuhas arellano Attending Unavailable Suhas Garrett Primary Care Unavailable KunsSuhas Admitting Unavailable KunSuhas arellano Attending Unavailable Suhas Garrett Primary Care Unavailable KunsSuhas Admitting Unavailable KunsSuhas Attending Unavailable Suhas Garrett Primary Care Unavailable GaelsSuhas Admitting Unavailable Kuns Suhas TYLER Primary Care Provider SHY WOLF Referring Unavailable [...] Translations: [Fosamax] Drug Allergy 3 Unknown, Other [facility] Repository (20 sources) Amoxicillin; Translations: [amoxicillin] Drug Allergy 9 hives [facility] Other (20 sources) Phenytoin; Translations: [Dilantin CAPS] Drug Allergy 3 Rash [facility] Other (20 sources) Valproate; Translations: [Depakote ER TB24] Drug Allergy Unknown [facility] Other (1 source) Alendronate Drug Allergy [facility] Repository (1 source) Amoxicillin Drug Allergy [facility] Repository (1 source) Phenytoin Drug Allergy [facility] Repository (1 source) Valproate Drug Allergy [facility] Repository (20 sources) Acetaminophen / HYDROcodone Drug Allergy elevated liver enzymes [facility] Other (6 sources) Alendronate Drug Allergy 3 Unknown, Other [facility] (8 sources) HYDROcodone; Translations: [HYDROCODONE] Drug Allergy 4 GI Upset [facility] Work Phone: (8 sources) Valproate; Translations: [VALPROIC ACID] Drug Allergy 3 Unknown [facility] Work Phone: (1 source) Acetaminophen Drug Allergy 4 [facility] Repository (1 source) Alendronate Drug Allergy 4 [facility] Repository (1 source) Amoxicillin Drug Allergy 4 [facility] Repository (1 source) HYDROcodone Drug Allergy 4 [facility] Repository (1 source) Phenytoin Drug Allergy 4 [facility] Repository (1 source) Valproate Drug Allergy 4 [facility] Repository (5 sources) Valproate; Translations: [DIVALPROEX] Drug Allergy 5 [facility] Work Phone: Medications Current Medications Medication [...] tablet by mouth once daily. 0 Active [place] 3 1000 MG (20 sources) take 1 capsule by mouth once daily [place] 3 1000 MG 1 capsule with a meal Orally Once a day Active predniSONE 10 mg oral tablet (20 sources) Start: 12-09-2024 take 1 tablet by mouth once daily predniSONE (Deltasone) 10 mg tablet Take 1 tablet (10 mg) by mouth once daily. 12/09/2024 Active Start: 07-05-2023 take 2 tablets by mo [facility] once daily predniSONE 10 MG 2 tablets [...] take 1 capsule by mouth once daily [place]-3 Fish Oil 1000 MG Oral Capsule TAKE [...] 0 Refills: 0 Ordered: 13-Dec-2021 DO Active [place] 3 500 CAPS (4 sources) [place] 3 500 CAPS TAKE 1 CAPSULE Daily Quantity: 0 Refills: 0 Ordered: 13-Dec-2021 DO Active oxycodone HCl/acetaminophen (OXYCODONE-ACETAMINOPHEN ORAL) (2 sources) Start: 024 End: oxycodone HCl/acetaminophen (OXYCODONE-ACETAMI NOPHEN ORAL) Take by [...] Coronary arteriosclerosis; 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 [place] coronary artery without angina pectoris] Onset: 09-03-2023 [...] Chronic Other aftercare (1 source) Other intermediate (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; Translations: [OTH FDC CURRENT DRUG THERAPY] Onset: 02-22-2022 Episodic Other [...] Interpretation Reference Range Facility TRANSTHORACIC ECHO (TTE) [facility] 12-21-2024 TRANSTHORACIC ECHO (TTE) COMPLETE [address], [address] [place] [address] TRANSTHORACIC ECHOCARDIOGRAM REPORT Patient Name: LAVONNE Bahena Physician: [id number] Shy Wolf MD, [facility] Study Date: 12/21/2024 Ordering Provider: [id number] SHY WOLF MRN/PID: [id number] Fellow: Nurse: Date of /Age: 3 1935 / 89 years Web Content Director: Sheridan Lemus RD, T Gender Assigned at F Additional Staff: : Height: 157.48 cm Admit Date: Weight: 65.77 kg Admission Status: Outpatient BSA / BMI: 1.67 m2 / 26.52 Department Location: [facility]/m2 Samuel Blood Pressure: 146 /68 mmHg Study Type: TRANSTHORACIC ECHO (TTE) COMPLETE Diagnosis/ICD: Nonrheumatic aortic (valve) stenosis-I35.0 Indication: HTN, Hyperlipidemia, 2/6 Systolic Murmur, Hypothyroid CPT Codes: Echo Complete w Full Doppler-74688 Study Detail: The following Echo studies were [...] 0.85 cm (more content not included)... Normal [facility] US Heart Transthoracicon Aortic Valve Area by Continuity of Peak Velocity 0.85 cm2 [facility] Work Phone: Aortic Valve Area by Continuity of VTI 0.9 cm2 [facility] Work Phone: AV mn grad 23 mmHg [facility] Work Phone: AV pk grad 43 mmHg [facility] Work Phone: AV pk haseeb 3.27 m/s [facility] Work Phone: LA vol index A/L 43.4 ml/m2 [facility] Work Phone: LV A4C EF 76.9 [facility] Work Phone: LV Biplane EF 71 % [facility] Work Phone: LV EF 68 % [facility] Work Phone: LVIDd 4.03 cm [facility] Work Phone: LVOT diam 1.89 cm [facility] Work Phone: MV avg E/e' ratio 15.93 [facility] Work Phone: MV E/A ratio 1 [facility] Work Phone: RV free wall pk S' 11.98 cm/s [facility] Work Phone: RVSP 34 mmHg [facility] Work Phone: Tricuspid annular plane systolic excursion 2.4 cm [facility] Work Phone: [address], [place] [address] TRANSTHORACIC ECHOCARDIOGRAM REPORT Patient Name: LAVONNE VILLATORO Reading Physician: [id number] Shy Wolf MD, [facility] Study Date: 12/21/2024 Ordering Provider: [id number] SHY WOLF MRN/PID: [id number] Fellow: Nurse: Date of /Age: 3 1935 / 89 years Web Content Director: Sheridan Lemus RDCS Ashvin Gender Assigned at F Additional Staff: : Height: 157.48 cm Admit Date: Weight: 65.77 kg Admission Status: Outpatient BSA / BMI: 1.67 m2 / 26.52 Department Location: [facility] Heart kg/m2 [place] Blood Pressure: 146 /68 mmHg Study Type: TRANSTHORACIC ECHO (TTE) COMPLETE Diagnosis/ICD: Nonrheumatic aortic (valve) stenosis-I35.0 Indication: HTN, Hyperlipidemia, 2/6 Systolic Murmur, Hypothyroid CPT Codes: Echo Complete w Full Doppler-[id number] Study Detail: The following Echo studies were [...] included)... Shy Winn M D - 12/21/[address], [address] [place] [address] TRANSTHORACIC ECHOCARDIOGRAM REPORT Patient Name: LAVONNE VILLATORO Shruti Physician: [id number] Wolf MD, [facility] Study Date: 12/21/2024 Ordering Provider: [id number] SHY WOLF MRN/PID: [id number] Fellow: Nurse: Date of /Age: 3 1935 / 89 years Web Content Director: Sheridan Lemus RDCS, RVT Gender Assigned at F Additional Staff: : Height: 157.48 cm Admit Date: Weight: 65.77 kg Admission Status: Outpatient BSA / BMI: 1.67 m2 / 26.52 Department Location: [address] Blood Pressure: 146 /68 mmHg Study Type: TRANSTHORACIC ECHO (TTE) COMPLETE Diagnosis/ICD: Nonrheumatic aortic (valve) stenosis-I35.0 Indication: HTN, Hyperlipidemia, 2/6 Systolic Murmur, Hypothyroid CPT Codes: Echo Complete w Full Doppler-[id number] Study Detail: The following Echo studies were [...] (18-25cm) LVOT VTI: (more content not included)... [facility] Work Phone: [facility] Work Phone: Complete Blood Count Auto Di ffon 07-28-2024 Basophils (Bld) [#/Vol] 0.1 10*3/uL Normal 0.0-0.2 [facility] Comment on above: Performed By: #### V [id number], CMP, TSH3, LIPID, CBC, T4F, ESR #### [address] Basophils/100 WBC (Bld) 1.1 % Normal . [facility] Comment on above: Performed By: #### V [id number], CMP, TSH3, LIPID, CBC, T4F, ESR #### [address] Eosinophils (Bld) [#/Vol] 0.1 10*3/uL Normal 0.0-0.45 [facility] Comment on above: Performed By: #### V [id number], CMP, TSH3, LIPID, CBC, T4F, ESR #### [facility] [address] Eosinophils/100 WBC (Bld) 2.2 % Normal . [facility] Comment on above: Performed By: #### V [id number], CMP, TSH3, LIPID, CBC, T4F, ESR #### [address] Erythrocyte distribution width (RBC) [Ratio] 13.5 % Normal 11.9-15.3 [facility] Comment on above: Performed By: #### V [id number], CMP, TSH3, LIPID, CBC, T4F, ESR #### [address] Hematocrit (Bld) [Volume fraction] 37.9 % Normal 34.0-46.4 [facility] Comment on above: Performed By: #### V [id number], CMP, TSH3, LIPID, CBC, T4F, ESR #### [address] Hemoglobin (Bld) [Mass/Vol] 12.9 g/dL Normal 11.8-15.4 [facility] Comment on above: Performed By: #### V [id number], CMP, TSH3, LIPID, CBC, T4F, ESR #### [address] Lymphocytes (Bld) [#/Vol] 2.2 10*3/uL Normal 1.00-4.8 [facility] Comment on above: Performed By: #### V [id number], CMP, TSH3, LIPID, CBC, T4F, ESR #### [address] Lymphocytes/100 WBC (Bld) 34.3 % Normal . [facility] Comment on above: Performed By: #### V [id number], CMP, TSH3, LIPID, CBC, T4F, ESR #### [address] MCH (RBC) [Entitic mass] 33.5 pg Normal 24.7-34.3 [facility] Comment on above: Performed By: #### V [id number], CMP, TSH3, LIPID, CBC, T4F, ESR #### [address] MCV (RBC) [Entitic vol] 98.4 fL Normal 80-100 [facility] Comment on above: Performed By: #### V [id number], CMP, TSH3, LIPID, CBC, T4F, ESR #### [address] Mean Corpuscular HGB Conc 34.1 g/dL Normal 32.0-35.0 [facility] Comment on above: Performed By: #### V [id number], CMP, TSH3, LIPID, CBC, T4F, ESR #### [address] Monocytes (Bld) [#/Vol] 0.6 10*3/uL Normal 0.0-0.8 [facility] Comment on above: Performed By: #### V [id number], CMP, TSH3, LIPID, CBC, T4F, ESR #### [address] Monocytes/100 WBC (Bld) 9.8 % Normal . [facility] Comment on above: Performed By: #### V [id number], CMP, TSH3, LIPID, CBC, T4F, ESR #### [address] Neutrophils (Bld) [#/Vol] 3.4 10*3/uL Normal 1.8-7.7 [facility] Comment on above: Performed By: #### V [id number], CMP, TSH3, LIPID, CBC, T4F, ESR #### [address] Neutrophils/100 WBC (Bld) 52.6 % Normal . [facility] Comment on above: Performed By: #### V [id number], CMP, TSH3, LIPID, CBC, T4F, ESR #### [address] NRBC% 0.3 /100{WBC} Normal 0-0.5 [facility] Comment on above: Performed By: #### V [id number], CMP, TSH3, LIPID, CBC, T4F, ESR #### [address] Platelet mean volume (Bld) [Entitic vol] 9.3 fL Normal 6.3-10.7 [facility] Comment on above: Performed By: #### V [id number], CMP, TSH3, LIPID, CBC, T4F, ESR #### [facility] [address] Platelets (Bld) [#/Vol] 208 10*3/uL Normal 150-450 [facility] Comment on above: Performed By: #### V [id number], CMP, TSH3, LIPID, CBC, T4F, ESR #### [address] RBC (Bld) [#/Vol] 3.85 10*6/uL Normal 3.60-5.00 [facility] Comment on above: Performed By: #### V [id number], CMP, TSH3, LIPID, CBC, T4F, ESR #### [address] WBC (Bld) [#/Vol] 6.6 10*3/uL Normal 3.8-11.6 [facility] Comment on above: Performed By: #### V [id number], CMP, TSH3, LIPID, CBC, T4F, ESR #### [address] Comprehensive Metabolic Pane nory 07-28-2024 Albumin [Mass/Vol] 3.7 g/dL Normal 3.5-5.7 [facility] Comment on above: Performed By: #### V [id number], CMP, TSH3, LIPID, CBC, T4F, ESR #### [address] Albumin/Globulin [Mass ratio] 1.9 {ratio} Normal [facility] Comment on above: Performed By: #### V [id number], CMP, TSH3, LIPID, CBC, T4F, ESR #### [address] ALP [Catalytic activity/Vol] 62 U/L Normal 34-104 [facility] Comment on above: Performed By: #### V [id number], CMP, TSH3, LIPID, CBC, T4F, ESR #### [address] ALT [Catalytic activity/Vol] 21 U/L Normal 7-52 [facility] Comment on above: Performed By: #### V [id number], CMP, TSH3, LIPID, CBC, T4F, ESR #### [address] Anion gap [Moles/Vol] 8.2 mmol/L Normal 6.0-15.0 [facility] Comment on above: Performed By: #### V [id number], CMP, TSH3, LIPID, CBC, T4F, ESR #### [address] AST [Catalytic activity/Vol] 19 U/L Normal 13-39 [facility] Comment on above: Performed By: #### V [id number], CMP, TSH3, LIPID, CBC, T4F, ESR #### [address] Bilirubin [Mass/Vol] 0.7 mg/dL Normal 0.3-1.0 [facility] Comment on above: Performed By: #### V [id number], CMP, TSH3, LIPID, CBC, T4F, ESR #### [address] Calcium [Mass/Vol] 9.7 mg/dL Normal 8.6-10.3 [facility] Comment on above: Performed By: #### V [id number], CMP, TSH3, LIPID, CBC, T4F, ESR #### [address] Chloride [Moles/Vol] 107 mmol/L Normal 98-107 [facility] Comment on above: Performed By: #### V [id number], CMP, TSH3, LIPID, CBC, T4F, ESR #### [address] CO2 [Moles/Vol] 31.5 mmol/L High 21.0-31.0 [facility] Comment on above: Performed By: #### V [id number], CMP, TSH3, LIPID, CBC, T4F, ESR #### [place] [address] [place] Creatinine [Mass/Vol] 0.67 mg/dL Normal 0.60-1.20 [facility] Comment on above: Performed By: #### V [id number], CMP, TSH3, LIPID, CBC, T4F, ESR #### [facility] [address] GFR/1.73 sq M.predicted MDRD (S/P/Bld) [Vol rate/Area] mL/min/{1.73_m2} Normal [facility] Comment on above: Performed By: #### V [id number], CMP, TSH3, LIPID, CBC, T4F, ESR #### [facility] [address] Globulin (S) [Mass/Vol] 1.9 g/dL Normal [facility] Comment on above: Performed By: #### V [id number], CMP, TSH3, LIPID, CBC, T4F, ESR #### [address] Glucose [Mass/Vol] 89 mg/dL Normal 70-100 [facility] Comment on above: Result Comment: [facility] Glucose Reference Range is dependent on time and content of last meal. Glucose of more than 200 mg/dL in a nonstressed, ambulatory subject supports the diagnosis of Diabetes Mellitus. ADA recommended reference range Performed By: #### V [id number], CMP, TSH3, LIPID, CBC, T4F, ESR #### [address] Potassium [Moles/Vol] 3.7 mmol/L Normal 3.5-5.1 [facility] Comment on above: Performed By: #### V [id number], CMP, TSH3, LIPID, CBC, T4F, ESR #### [facility] [address] Protein [Mass/Vol] 5.6 g/dL Low 6.4-8.9 [facility] Comment on above: Performed By: #### V [id number], CMP, TSH3, LIPID, CBC, T4F, ESR #### [place] [address] Sodium [Moles/Vol] 143 mmol/L Normal 136-145 [facility] Comment on above: Performed By: #### V [id number], CMP, TSH3, LIPID, CBC, T4F, ESR #### [address] Urea nitrogen [Mass/Vol] 19 mg/dL Normal 7-25 [facility] Comment on above: Performed By: #### V [id number], CMP, TSH3, LIPID, CBC, T4F, ESR #### [address] Erythrocyte Sedimentation Ra amy 07-28-2024 ESR (Bld) [Velocity] 9 mm/h Normal 0-29 [facility] Comment on above: Result Comment: PERF ORMED BY: [place] [address] PATHOLOGIST MUSICAL THERAPIST JASIEL HURTADO M.D. Performed By: #### V [id number], CMP, TSH3, LIPID, CBC, T4F, ESR #### [address] Free T4 (Free Thyroxine)on 0 07-28-2024 Free T4 [Mass/Vol] 0.74 ng/dL Normal 0.61-1.12 [facility] Comment on above: Performed By: #### L IPID, TSH3, CMP, CBC #### [address] Lipid Panelon 07-28-2024 Cholesterol [Mass/Vol] 228 mg/dL High 140-200 [facility] Comment on above: Result Comment: Chol less than 200 mg/dl low risk Chol 201-239 mg/dl borderline risk Chol 240 mg/dl and greater high risk Performed By: #### V [id number], CMP, TSH3, LIPID, CBC, T4F, ESR #### [address] Cholesterol in HDL [Mass/Vol] 96 mg/dL High 23-92 [facility] Comment on above: Result Comment: HDL CHOL ATP-III CLASSIFICATION Cardiovascular Risk HDL > or equal to 60 mg/dL LOW HDL < 40 mg/dL HIGH Performed By: #### V [id number], CMP, TSH3, LIPID, CBC, T4F, ESR #### [facility] [address] [place] [address] [facility] Cholesterol.total/Ch olesterol in HDL [Mass ratio] 2.4 {ratio} Normal <5.0 [facility] Comment on above: Performed By: #### V [id number], CMP, TSH3, LIPID, CBC, T4F, ESR #### [facility] [address] [place] [address] [facility] LDL Cholesterol,Calculat ed 121 mg/dL High 0-100 [facility] Comment on above: Result Comment: LDL ATP III CLASSIFICATION LDL less than 100 mg/dL Optimal LDL 100-129 mg/dL Near or above optimal LDL 130-159 mg/dL Borderline high LDL 160-189 mg/dL High LDL greater than 189 mg/dL Very high Performed By: #### V [id number], CMP, TSH3, LIPID, CBC, T4F, ESR #### [facility] [address] [place] [address] [facility] Triglyceride w/Reflex 57 mg/dL Normal 0-149 [facility] Comment on above: Result Comment: TRIG ATP III CLASSIFICATION TRIG less than 150 mg/dL Normal TRIG 150-199 mg/dL Borderline high TRIG 200-500 mg/dL High TRIG greater than 500 mg/dL Very high Standard traceable to the Center for Disease Conrtrol and Prevention (CDC) test method. Performed By: #### V [id number], CMP, TSH3, LIPID, CBC, T4F, ESR #### [facility] [address] [place] [address] [facility] VLDL CHOLESTEROL 11 mg/dL Normal [facility] Comment on above: Performed By: #### V [id number], CMP, TSH3, LIPID, CBC, T4F, ESR #### [facility] [address] [place] [address] [facility] Thyroid Stimulating Hormoneo n 07-28-2024 TSH Qn 6.38 m[IU]/L High 0.45-5.33 [facility] Comment on above: Performed By: #### L IPID, TSH3, CMP, CBC #### [address] Vitamin D 25 Hydroxy Totalon 07-28-2024 Vitamin D 25 Hydroxy Total 28.4 ng/mL Low 30-100 [facility] Comment on above: Result Comment: ANJU MIN D STATUS 25(OH)VITAMIN D RANGE (ng/mL) Deficient <20 Insufficient 20 to <30 Sufficient 30 to 100 Reference: Yolanda MF,Nathan NC, Keshawn FRANCO, et al. Evaluation,treatment, and prevention of vitamin D deficiency; an Endocrine Society clinical practice guideline. JCEM. 2010; 96(7):1911-30. PERFORMED BY: [place] [address] PATHOLOGIST MUSICAL THERAPIST JASIEL HURTADO M.D. Performed By: #### L IPID, TSH3, CMP, CBC #### [address] XR scapula LT*on 05-25-2024 XR scapula LT* [facility] [place] [address] [place] [address] XRay Report Signed Patient: Lavonne Villatoro MR#: [id number] : 1935 Acct:[id number] Age/Sex: 88 / F ADM Date: 05/25/24 Loc: XD Room: Type: [facility] Attending Dr: Suhas Garrett DO Copies to: Suhas Garrett DO Ordering Provider: Suhas Garrett DO Date of Service: 05/25/24 XR/XR shoulder LT min 2V*: M25.519 - Pain in unspecified shoulder ([id number]) XR/XR scapula LT*: M25.519 - Pain in [...] Casandra Gómez M.D.05/25/2024 4:45 PM Dictation Location: [place] [address] Transcribed By: [facility] 05/25/241644 Dictated By: Casandar Gómez MD 05/25/241641 Signed By: 05/25/241644 Normal [facility] TRANSTHORACIC ECHO (TTE) [facility] 02-11-2024 TRANSTHORACIC ECHO (TTE) COMPLETE [address], [address] [place] [address] TRANSTHORACIC ECHOCARDIOGRAM REPORT Patient Name: LAVONNE VILLATORO Reading Physician: [id number] Shy Wolf MD, [facility] Study Date: 02/11/2024 Ordering Provider: [id number] SHY WOLF MRN/PID: [id number] Fellow: Nurse: Date of /Age: 3 1935 / 88 years Web Content Director: LILIA Gender: F Additional Staff: Height: 157.48 cm Admit Date: Weight: 69.40 kg Admission Status: BSA / BMI: 1.71 m2 / 27.98 kg/m2 Department Location: [facility] Blood Pressure: 116 /76 mmHg Study Type: TRANSTHORACIC ECHO (TTE) COMPLETE Diagnosis/ICD: Nonrheumatic aortic (valve) stenosis-I35.0 Indication: HTN, Hyperlipidemia, 3/6 Systolic Murmur, Hypothryoid, Overweight CPT Codes: Echo Complete w Full Doppler-[id number] Study Detail: The following Echo studies were [...] mmHg PIEDV: 2.23 m/s PADP: 22.9 mmHg [id number] Shy Wolf MD, FACC Electronical (more content not included)... [facility] US carotid doppler BIon 05-0 US carotid doppler BI [facility] [place] [address] [place] [address] Ultrasound Report Signed Patient: Lavonne Villatoro MR#: [id number] : 1935 Acct:[id number] Age/Sex: 88 / F ADM Date: 10/14/23 Loc: Room: Type: [facility] Attending Dr: Suhas Garrett DO Ordering [...] Hola Wynn M.D.10/15/2023 11:47 AM Dictation Location: [facility] Tech: Jackie Aguillon Transcribed By: KIRILL 10/15/23 1147 Dictated By: Hola Wynn MD 10/15/23 1145 Signed By: 10/15/23 1147 Normal [facility] Complete Blood Count Auto Di ffon 09-03-2023 Basophils (Bld) [#/Vol] 0.0 10*3/uL Normal 0.0-0.2 [facility] Comment on above: Result Comment: PERF ORMED BY: [place] [address] PATHOLOGIST MUSICAL THERAPIST JODY SOLANO M.D. Performed By: #### L IPID, TSH3, CMP, CBC #### [address] Basophils/100 WBC (Bld) 0.7 % Normal . [facility] Comment on above: Performed By: #### L IPID, TSH3, CMP, CBC #### [address] Eosinophils (Bld) [#/Vol] 0.1 10*3/uL Normal 0.0-0.45 [facility] Comment on above: Performed By: #### L IPID, TSH3, CMP, CBC #### [address] Eosinophils/100 WBC (Bld) 1.6 % Normal . [facility] Comment on above: Performed By: #### L IPID, TSH3, CMP, CBC #### [address] Erythrocyte distribution width (RBC) [Ratio] 14.8 % Normal 11.9-15.3 [facility] Comment on above: Performed By: #### L IPID, TSH3, CMP, CBC #### [address] Hematocrit (Bld) [Volume fraction] 39.9 % Normal 34.0-46.4 [facility] Comment on above: Performed By: #### L IPID, TSH3, CMP, CBC #### [address] Hemoglobin (Bld) [Mass/Vol] 13.2 g/dL Normal 11.8-15.4 [facility] Comment on above: Performed By: #### L IPID, TSH3, CMP, CBC #### [address] Lymphocytes (Bld) [#/Vol] 2.6 10*3/uL Normal 1.00-4.8 [facility] Comment on above: Performed By: #### L IPID, TSH3, CMP, CBC #### [address] Lymphocytes/100 WBC (Bld) 43.5 % Normal . [facility] Comment on above: Performed By: #### L IPID, TSH3, CMP, CBC #### [address] [address] MCH (RBC) [Entitic mass] 33.2 pg Normal 24.7-34.3 [facility] Comment on above: Performed By: #### L IPID, TSH3, CMP, CBC #### [address] MCV (RBC) [Entitic vol] 100.5 fL High 80-100 [facility] Comment on above: Performed By: #### L IPID, TSH3, CMP, CBC #### [address] Mean Corpuscular HGB Conc 33.0 g/dL Normal 32.0-35.0 [facility] Comment on above: Performed By: #### L IPID, TSH3, CMP, CBC #### [place] [address] [place] Monocytes (Bld) [#/Vol] 0.6 10*3/uL Normal 0.0-0.8 [facility] Comment on above: Performed By: #### L IPID, TSH3, CMP, CBC #### [address] Monocytes/100 WBC (Bld) 9.7 % Normal . [facility] Comment on above: Performed By: #### L IPID, TSH3, CMP, CBC #### [address] Neutrophils (Bld) [#/Vol] 2.7 10*3/uL Normal 1.8-7.7 [facility] Comment on above: Performed By: #### L IPID, TSH3, CMP, CBC #### [address] Neutrophils/100 WBC (Bld) 44.5 % Normal . [facility] Comment on above: Performed By: #### L IPID, TSH3, CMP, CBC #### [address] NRBC% 0.2 /100{WBC} Normal 0-0.5 [facility] Comment on above: Performed By: #### L IPID, TSH3, CMP, CBC #### [place] [address] [place] Platelet mean volume (Bld) [Entitic vol] 9.2 fL Normal 6.3-10.7 [facility] Comment on above: Performed By: #### L IPID, TSH3, CMP, CBC #### [place] [address] [place] Platelets (Bld) [#/Vol] 229 10*3/uL Normal 150-450 [facility] Comment on above: Performed By: #### L IPID, TSH3, CMP, CBC #### [address] RBC (Bld) [#/Vol] 3.98 10*6/uL Normal 3.60-5.00 [facility] Comment on above: Performed By: #### L IPID, TSH3, CMP, CBC #### [address] WBC (Bld) [#/Vol] 6.0 10*3/uL Normal 3.8-11.6 [facility] Comment on above: Performed By: #### L IPID, TSH3, CMP, CBC #### [address] Comprehensive Metabolic Pane nory 09-03-2023 Albumin [Mass/Vol] 3.8 g/dL Normal 3.5-5.7 [facility] Comment on above: Performed By: #### L IPID, TSH3, CMP, CBC #### [address] Albumin/Globulin [Mass ratio] 1.7 {ratio} Normal [facility] Comment on above: Performed By: #### L IPID, TSH3, CMP, CBC #### [address] ALP [Catalytic activity/Vol] 72 U/L Normal 34-104 [facility] Comment on above: Performed By: #### L IPID, TSH3, CMP, CBC #### [address] ALT [Catalytic activity/Vol] 43 U/L Normal 7-52 [facility] Comment on above: Performed By: #### L IPID, TSH3, CMP, CBC #### [address] Anion gap [Moles/Vol] 8.9 mmol/L Normal 6.0-15.0 [facility] Comment on above: Performed By: #### L IPID, TSH3, CMP, CBC #### [address] AST [Catalytic activity/Vol] 23 U/L Normal 13-39 [facility] Comment on above: Performed By: #### L IPID, TSH3, CMP, CBC #### [address] Bilirubin [Mass/Vol] 1.2 mg/dL High 0.3-1.0 [facility] Comment on above: Performed By: #### L IPID, TSH3, CMP, CBC #### [address] Calcium [Mass/Vol] 9.5 mg/dL Normal 8.6-10.3 [facility] Comment on above: Performed By: #### L IPID, TSH3, CMP, CBC #### [address] Chloride [Moles/Vol] 107 mmol/L Normal 98-107 [facility] Comment on above: Performed By: #### L IPID, TSH3, CMP, CBC #### [address] CO2 [Moles/Vol] 30.0 mmol/L Normal 21.0-31.0 [facility] Comment on above: Performed By: #### L IPID, TSH3, CMP, CBC #### [address] Creatinine [Mass/Vol] 0.76 mg/dL Normal 0.60-1.20 [facility] Comment on above: Performed By: #### L IPID, TSH3, CMP, CBC #### [place] [address] [place] GFR/1.73 sq M.predicted MDRD (S/P/Bld) [Vol rate/Area] mL/min/{1.73_m2} Normal [facility] Comment on above: Performed By: #### L IPID, TSH3, CMP, CBC #### [place] [address] [place] Globulin (S) [Mass/Vol] 2.2 g/dL Normal [facility] Comment on above: Performed By: #### L IPID, TSH3, CMP, CBC #### [facility] [address] Glucose [Mass/Vol] 79 mg/dL Normal 70-100 [facility] Comment on above: Result Comment: [place] Glucose Reference Range is dependent on time and content of last meal. Glucose of more than 200 mg/dL in a nonstressed, ambulatory subject supports the diagnosis of Diabetes Mellitus. ADA recommended reference range Performed By: #### L IPID, TSH3, CMP, CBC #### [facility] [address] Potassium [Moles/Vol] 3.9 mmol/L Normal 3.5-5.1 [facility] Comment on above: Performed By: #### L IPID, TSH3, CMP, CBC #### [address] Protein [Mass/Vol] 6.0 g/dL Low 6.4-8.9 [facility] Comment on above: Performed By: #### L IPID, TSH3, CMP, CBC #### [place] [address] [place] Sodium [Moles/Vol] 142 mmol/L Normal 136-145 [facility] Comment on above: Performed By: #### L IPID, TSH3, CMP, CBC #### [place] [address] [place] Urea nitrogen [Mass/Vol] 22 mg/dL Normal 7-25 [facility] Comment on above: Performed By: #### L IPID, TSH3, CMP, CBC #### [facility] [address] Lipid Panelon 09-03-2023 Cholesterol [Mass/Vol] 243 mg/dL High 140-200 [facility] Comment on above: Result Comment: Chol less than 200 mg/dl low risk Chol 201-239 mg/dl borderline risk Chol 240 mg/dl and greater high risk Performed By: #### L IPID, TSH3, CMP, CBC #### [facility] [address] Cholesterol in HDL [Mass/Vol] 98 mg/dL High 23-92 [facility] Comment on above: Result Comment: HDL CHOL ATP-III CLASSIFICATION Cardiovascular Risk HDL > or equal to 60 mg/dL LOW HDL < 40 mg/dL HIGH Performed By: #### L IPID, TSH3, CMP, CBC #### [facility] [address] Cholesterol.total/Ch olesterol in HDL [Mass ratio] 2.5 {ratio} Normal <5.0 [facility] Comment on above: Performed By: #### L IPID, TSH3, CMP, CBC #### [facility] [address] LDL Cholesterol,Calculat ed 121 mg/dL High 0-100 [facility] Comment on above: Result Comment: LDL ATP III CLASSIFICATION LDL less than 100 mg/dL Optimal LDL 100-129 mg/dL Near or above optimal LDL 130-159 mg/dL Borderline high LDL 160-189 mg/dL High LDL greater than 189 mg/dL Very high Performed By: #### L IPID, TSH3, CMP, CBC #### [address] Triglyceride w/Reflex 122 mg/dL Normal 0-149 [facility] Comment on above: Result Comment: TRIG ATP III CLASSIFICATION TRIG less than 150 mg/dL Normal TRIG 150-199 mg/dL Borderline high TRIG 200-500 mg/dL High TRIG greater than 500 mg/dL Very high Standard traceable to the Center for Disease Conrtrol and Prevention (CDC) test method. Performed By: #### L IPID, TSH3, CMP, CBC #### [facility] [address] VLDL CHOLESTEROL 24 mg/dL Normal [facility] Comment on above: Performed By: #### L IPID, TSH3, CMP, CBC #### [facility] [address] [place] [id number] [facility] Thyroid Stimulating Hormoneo n 09-03-2023 TSH Qn 4.01 m[IU]/L Normal 0.45-5.33 [facility] Comment on above: Result Comment: PERF ORMED BY: [facility] [address] [place] [address] PATHOLOGIST MUSICAL THERAPIST JODY SOLANO M.D. Performed By: #### L IPID, TSH3, CMP, CBC #### [facility] [address] Complete Blood Count Auto Di ffon 07-08-2023 Basophils (Bld) [#/Vol] 0.831876685 10*3/uL Normal 0.0-0.2 10*3/uL [facility] Other Basophils/100 WBC (Bld) 0.900 % . % [facility] Other Eosinophils (Bld) [#/Vol] 0.213002307 10*3/uL Normal 0.0-0.45 10*3/uL [facility] Other Eosinophils/100 WBC (Bld) 1.100 % . % [facility] Other Erythrocyte distribution width (RBC) [Ratio] 14.000 % Normal 11.9-15.3 % [facility] Other Hematocrit (Bld) [Volume fraction] 37.700 % Normal 34.0-46.4 % [facility] Other Hemoglobin (Bld) [Mass/Vol] 12.090006 g/dL Normal 11.8-15.4 g/dL [facility] Other Lymphocytes (Bld) [#/Vol] 2.402864187 10*3/uL Normal 1.00-4.8 10*3/uL [facility] Other Lymphocytes/100 WBC (Bld) 35.100 % . % [facility] Other MCH (RBC) [Entitic mass] 33.3000 pg Normal 24.7-34.3 pg [facility] Other MCV (RBC) [Entitic vol] 99.7000 fL Normal 80-100 fL [facility] Other Monocytes (Bld) [#/Vol] 0.616157822 10*3/uL Normal 0.0-0.8 10*3/uL [facility] Other Monocytes/100 WBC (Bld) 10.000 % . % [facility] Other Neutrophils (Bld) [#/Vol] 3.147245139 10*3/uL Normal 1.8-7.7 10*3/uL [facility] Other Neutrophils/100 WBC (Bld) 52.900 % . % [facility] Other Platelet mean volume (Bld) [Entitic vol] 9.9000 fL Normal 6.3-10.7 fL [facility] Other Platelets (Bld) [#/Vol] 224 10*3/uL Normal 150-450 10*3/uL [facility] Other RBC (Bld) [#/Vol] 3.78 10*6/uL Normal 3.60-5.00 [facility] Other WBC (Bld) [#/Vol] 7.357440263 10*3/uL Normal 3.8 -11.6 10*3/uL [facility] Other Complete Blood Count Auto Diff 7.1 10*3/uL Normal 3.8-11.6 10*3/uL [facility] Other Complete Blood Count Auto Diff 33.4 g/dL Normal 32.0-35.0 g/dL [facility] Other Complete Blood Count Auto Diff 0.1 /100{WBC} Normal 0-0.5 /100{WBC} [facility] Other Comprehensive Metabolic Pane nory 07-08-2023 Albumin [Mass/Vol] 3.881825 g/dL Normal 3.5-5.7 g/dL N [employer] Other Albumin/Globulin [Mass ratio] 1.7 {ratio} [facility] Other ALP [Catalytic activity/Vol] 140 U/L High 34-104 U/L The [facility] Other ALT [Catalytic activity/Vol] 71 U/L High 7-52 U/L [facility] Other AST [Catalytic activity/Vol] 20 U/L Normal 13-39 U/L [facility] Other Bilirubin [Mass/Vol] 0.4426652 mg/dL Normal 0.3-1.0 mg /dL [facility] Other Calcium [Mass/Vol] 9.1466530 mg/dL Normal 8.6-10 .3 mg/dL [facility] Other Chloride [Moles/Vol] 107 mmol/L Normal 98-107 mmol/L [employer] Other CO2 [Moles/Vol] 30.23850515 mmol/L Normal 21.0-3 1.0 mmol/L [facility] Other Creatinine [Mass/Vol] 0.95574725 mg/dL Normal 0.60-1.20 mg/dL [facility] Other GFR/1.73 sq M.predicted MDRD (S/P/Bld) [Vol rate/Area] mL/min/{1.73_m2} [facility] Other Glucose [Mass/Vol] 89 mg/dL Normal 70-100 mg/dL [facility] [employer] Other Potassium [Moles/Vol] 3.40857297 mmol/L Normal 3.5-5.1 mmol/L [facility] Other Protein [Mass/Vol] 6.145394 g/dL Low 6.4-8.9 g/dL N [employer] Other Sodium [Moles/Vol] 143 mmol/L Normal 136-145 mmol/L [facility] Other Urea nitrogen [Mass/Vol] 21 mg/dL Normal 7-25 mg/dL [facility] Other Comprehensive Metabolic Panel 2.2 g/dL [facility] Other Free T4 (Free Thyroxine)on 0 07-08-2023 Free T4 [Mass/Vol] 1.58508630 ng/dL High 0.61- 1.12 ng/dL [facility] Other Thyroid Antibodies TPO+Tg Ab on 07-08-2023 Thyroid Antibodies TPO+Tg Ab 11 0-34 [facility] Other Thyroid Antibodies TPO+Tg Ab <1.0 0.0-0.9 [facility] Other Thyroid Stimulating Hormoneo n 07-08-2023 TSH Qn 2.22060111221 m[IU]/L Normal 0.45-5 .33 u[iU]/mL [facility] Other Echocardiogramon 02-26-[address], [place] [address] TRANSTHORACIC ECHOCARDIOGRAM REPORT Patient Name: LAVONNE Bahena Physician: [id number] [facility]y [facility] Date: 02/26/2023 Referring SHY WOLF Physician: MRN/PID: [id number] PCP: Suhas Garrett MD Accession/Order#: [id number] Department [facility] Location: Date of : 1935 Fellow: Gender: F Nurse: Admit Date: Web Content Director: Sheridan Lemus RDCS, [facility] Height: 157.48 cm CC Report to: Weight: 67.13 kg Study Type: Echocardiogram BSA: 1.68 m2 Blood Pressure: 122 /76 mmHg Diagnosis/ICD: I35.0-Nonrheumatic aortic (valve) stenosis; R01.1-Cardiac murmur, unspecified Indication: HTN, Hyperlipidemia, Overweight, Hypothyroid, Polymyalgia Rheumatica Procedure/CPT: Echo Complete w Full Doppler-[id number] Study Detail: The following Echo studies were [...] mmHg PIEDV: 2.50 m/s PADP: 28.0 mmHg [id number] Shy Wolf MD, FACC Electronically signed on 03/01/2023 at 2:16:46 PM Final Normal [facility] Office Visit (Cardiology)on 12-24-2022 Follow-up visit Diagnoses/Problems Assessed Aortic stenosis (424.1) (I35.0) Murmur, cardiac (785.2) (R01.1) Essential hypertension (401.9) (I10) Hyperlipidemia (272.4) (E78.5) Overweight with body mass index (BMI) of 27 to 27.9 in adult (278.02,V85.23) (E66.3,Z68.27) Never smoker Hypothyroidism (244.9) (E03.9) PMR (polymyalgia rheumatica) (725) (M35.3) Orders Aortic stenosis, Murmur, cardiac Echocardiogram; Status:Hold For - Scheduling,Retrospect bola Authorization; Requested for:[id number]; Essential hypertension, Hyperlipidemia Changed: From Aspirin EC 81 MG TBEC TAKE 1 TABLET To Aspirin 81 MG Oral Tablet Delayed Release TAKE 1 TABLET DAILY Overweight with body mass index (BMI) of 27 to 27.9 in adult Healthy Weight Tips; Status:Complete - Retrospective Authorization; Done: [id number] Some eating tips that can help you lose weight.; Status:Complete - Retrospective Authorization; Done: [id number] SocHx: Never smoker Tobacco Use Screening; Status:Complete; Done: [id number] Patient Instructions Please bring all medicines, vitamins, [...] is being tapered gradually Shy Wolf MD, [facility] Past Medical History Problems History of [...] Multi Vitamin Oral TabletTAKE 1 TABLET DAILY. [place]-3 Fish Oil 1000 MG Oral CapsuleTAKE 1 [...] negative for complaint. Vitals Vital Signs Recorded: [id number] 11:32AM Heart Rate68, R Radial Pcodhzix401, RUE, Sitting Yebsxfgei58, RUE, Sitting Height5 ft 2 in Qjuptq990 lb BMI Lixxixyfhu14.07 kg/m2 BSA Calculated1.68 Tobacco Useb) No PHQ-2 [...] distress a (more content not included)... Normal [facility] Tobacco Screening.on 023 Adult depression screening assessment No [facility] [address] DO Work Phone: Fall risk assessment a) No falls within the last year [facility] [address] DO Work Phone: Tobacco use status CPHS b) No [facility] 250 DO Work Phone: Complete Blood Count Auto Di ffon 02-22-2022 Basophils (Bld) [#/Vol] 0.592509230 10*3/uL Normal 0.0-0.2 10*3/uL [facility] [employer] Other Basophils/100 WBC (Bld) 0.700 % . % The [facility] Other Eosinophils (Bld) [#/Vol] 0.369239230 10*3/uL Normal 0.0-0.45 10*3/uL [facility] Other Eosinophils/100 WBC (Bld) 0.700 % . % The [facility] Other Erythrocyte distribution width (RBC) [Ratio] 13.500 % Normal 11.9-15.3 % [facility] Other Hematocrit (Bld) [Volume fraction] 38.400 % Normal 34.0-46.4 % [facility] Other Hemoglobin (Bld) [Mass/Vol] 12.536388 g/dL Normal 11.8-15.4 g/dL [facility] Other Lymphocytes (Bld) [#/Vol] 0.749204060 10*3/uL Low 1.00-4.8 10*3/uL [facility] Other Lymphocytes/100 WBC (Bld) 12.600 % . % [facility] Other MCH (RBC) [Entitic mass] 33.7000 pg Normal 24.7-34.3 pg [facility] Other MCV (RBC) [Entitic vol] 100.4000 fL High 80-100 fL [facility] Other Monocytes (Bld) [#/Vol] 0.811719016 10*3/uL Normal 0.0-0.8 10*3/uL [facility] Other Monocytes/100 WBC (Bld) 6.800 % . % [facility] Other Neutrophils (Bld) [#/Vol] 5.187542972 10*3/uL Normal 1.8-7.7 10*3/uL [facility] Other Neutrophils/100 WBC (Bld) 79.200 % . % [facility] Other Platelet mean volume (Bld) [Entitic vol] 9.4000 fL Normal 6.3-10.7 fL [place] [employer] Other Platelets (Bld) [#/Vol] 223 10*3/uL Normal 150-450 10*3/uL [facility] Other RBC (Bld) [#/Vol] 3.0230370126 10*6/uL Normal 3. 60-5.00 10*6/uL [facility] Other WBC (Bld) [#/Vol] 6.281610807 10*3/uL Normal 3.8 -11.6 10*3/uL [facility] Other Complete Blood Count Auto Diff 6.6 10*3/uL Normal 4.5-11.0 10*3/uL [facility] Other Complete Blood Count Auto Diff 33.6 g/dL Normal 32.0-35.0 g/dL [facility] Other Complete Blood Count Auto Diff 0.1 % Normal 0-0.5 % [facility] Other Erythrocyte Sedimentation Ra amy 02-22-2022 ESR (Bld) [Velocity] 28 mm/h Normal 0-29 [facility] [employer] Other [facility] Carotid Artery Dupl ex Ultrasoundon 02-21-2022 US.doppler Carotid arteries [facility] [employer] [address] [place] Work Phone: COVID Quick Testingon 2021 Result Positive [facility] Other Falls Screening (Age 18+)on 12-26-2021 Fall risk assessment a) No falls within the last year [facility] [employer] 250 DO Work Phone: Office Visit (Cardiology)on 12-26-2021 Follow-up visit Diagnoses/Problems Assessed Essential hypertension (401.9) (I10) Patient Instructions By signing my name below, I, Avni Tidwell Lpn, attest that this documentation has been prepared under the direction and in the presence of Dr. Shy Wolf MD. All medical record entries made by the Chema[facility] were at my direction and personally dictated [...] Multi Vitamin Oral TabletTAKE 1 TABLET DAILY. [place] 3 500 CAPSTAKE 1 CAPSULE Daily predniSONE 5 MG Oral Cljydd8JU 7.5MG BY MOUTH ONE DAILY ALTERNATING EVERY OTHER DAY Allergies Medication amoxicillin Hives;; Recorded By: Kayla Orr; 10/17/2021 10:50:34 AM Dilantin CAPS Rash; Recorded By: Kayla Orr; 10/17/2021 10:50:34 AM Fosamax eye pain; Recorded By: Kayla Orr; 10/17/2021 10:50:34 AM Depakote ER TB24 Recorded By: Kayla Orr; 10/17/2021 10:50:34 AM Vitals Vital Signs Recorded: 26Dec2021 11:04AMRecorded: 26Dec2021 11:00AM Heart Rate56, R Xiwhcw10, R Radial Prlvtwah877, LUE, Ultqhso965, RUE Dqudphlrc34, LUE, Abzdadu91, RUE Height5 ft 2 in5 ft 2 in Xhrcqv440 lb 143 lb BMI Knrhfmkciv43.16 kg/m226.16 kg/m2 BSA Calculated1.661.66 Falls Screening (Age 18+)a) No falls within the last year Signatures Electronically signed by : Shy Wolf MD; Dec 26 2021 4:02PM EST (Author) Normal [facility] Tobacco Screening.on 022 Adult depression screening assessment No [facility] Work Phone: Fall risk assessment a) No falls within the last year [facility] Work Phone: Tobacco use status CPHS b) No [facility] Work Phone: Vital Signs Date Time Vital Sign Value 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 Facility 01-14-2025 11:07-0400 Body height 157.5 cm Shy Wolf MD Work Phone: [facility] 01-14-2025 11:07-0400 Body mass index (BMI) [Ratio] 27.44 kg/m2 Shy Wolf MD Work Phone: [facility] 01-14-2025 11:07-0400 Body weight 68.04 kg Shy Wolf MD Work Phone: [facility] 01-14-2025 11:07-0400 Diastolic blood pressure 78 mm[Hg] Shy Wolf MD Work Phone: [facility] 01-14-2025 11:07-0400 Heart rate 60 /min Shy Wolf MD Work Phone: [facility] 01-14-2025 11:07-0400 Systolic blood pressure 168 mm[Hg] Shy Wolf MD Work Phone: [facility] 12-21-2024 12:30-0400 Body height 157.[address] 12-21-2024 12:30-0400 Body mass index (BMI) [Ratio] 26.52 kg/m2 [address] 12-21-2024 12:30-0400 Body weight 65.[address] 12-21-2024 12:30-0400 Diastolic blood pressure 68 mm[Hg] [address] 12-21-2024 12:30-0400 Systolic blood pressure 146 mm[Hg] [address] 12-08-2024 13:56-0400 Diastolic blood pressure 70 mm[Hg] Reuben Burns [employer] Work Phone: [facility] 12-08-2024 13:56-0400 Systolic blood pressure 142 mm[Hg] Reuben Burns [employer]IPMENT [employer] Work Phone: [facility] 12-07-2024 14:59-0400 Body height 157.5 cm Reuben Burns [employer]IP[employer] Work Phone: [facility] 12-07-2024 14:59-0400 Body mass index (BMI) [Ratio] 26.45 kg/m2 Reuben Burns H[employer] B[employer]IPMENT [employer] Work Phone: [facility] 12-07-2024 14:59-0400 Body weight 65.59 kg Reuben Burns H[employer]IPMENT [employer] Work Phone: [facility] 12-07-2024 14:59-0400 Heart rate 62 /min Reuben Burns H[employer]IPMENT [employer] Work Phone: [facility] 04-16-2024 13:16-0500 Body height 157.5 cm Shy Wolf MD Work Phone: [facility] 04-16-2024 13:16-0500 Body mass index (BMI) [Ratio] 26.67 kg/m2 Shy Wolf MD Work Phone: [facility] 04-16-2024 13:16-0500 Body weight 66.13 kg Shy Wolf MD Work Phone: [facility] 04-16-2024 13:16-0500 Diastolic blood pressure 62 mm[Hg] Shy Wolf MD Work Phone: [facility] 04-16-2024 13:16-0500 Heart rate 62 /min Shy Wolf MD Work Phone: [facility] 04-16-2024 13:16-0500 Systolic blood pressure 120 mm[Hg] Shy Wolf MD Work Phone: [facility] 02-11-2024 12:28-0400 Body height 157.[address] 02-11-2024 12:28-0400 Body mass index (BMI) [Ratio] 27.98 kg/m2 [address] 02-11-2024 12:28-0400 Body weight 69.[address] 02-11-2024 12:28-0400 Diastolic blood pressure 76 mm[Hg] [address] 02-11-2024 12:28-0400 Systolic blood pressure 116 mm[Hg] [address] 07-04-2023 11:15-0500 Body height 157.48 cm Suhas Garrett Other [facility] [employer] Other 07-04-2023 11:15-0500 Body mass index (BMI) [Ratio] 28.53 kg/m2 Suhas Garrett Other [facility] [employer] Other 07-04-2023 11:15-0500 Body weight 70.76 kg Suhas Garrett Other [employer] Other 07-04-2023 11:15-0500 Diastolic blood pressure 84 mm[Hg] Suhas Garrett Other [employer] Other 07-04-2023 11:15-0500 Respiratory rate 20 /min Suhas Garertt Other [facility] [employer] Other 07-04-2023 11:15-0500 SaO2% (BldA) [Mass fraction] 99 % Suhas Garrett Other [employer] Other 07-04-2023 11:15-0500 Systolic blood pressure 150 mm[Hg] Suhas Garrett Other [employer] Other 06-19-2023 11:09-0500 Body height 157.5 cm Shy Wolf MD Work Phone: [facility] 06-19-2023 11:09-0500 Body mass index (BMI) [Ratio] 27.98 kg/m2 Shy Wolf MD Work Phone: [facility] 06-19-2023 11:09-0500 Body weight 69.4 kg Shy Wolf MD Work Phone: [facility] 06-19-2023 11:09-0500 Diastolic blood pressure 76 mm[Hg] Shy Wolf MD Work Phone: [facility] 06-19-2023 11:09-0500 Heart rate 60 /min Shy Wolf MD Work Phone: [facility] 06-19-2023 11:09-0500 Systolic blood pressure 120 mm[Hg] Shy Wolf MD Work Phone: [facility] 05-30-2023 11:00-0500 Body height 157.48 cm Suhas Garrett Other [employer] Other 05-30-2023 11:00-0500 Body mass index (BMI) [Ratio] 27.8 kg/m2 Suhas Garrett Other [employer] Other 05-30-2023 11:00-0500 Body weight 68.95 kg Shuas Garrett Other [employer] Other 05-30-2023 11:00-0500 Diastolic blood pressure 80 mm[Hg] Suhas Garrett Other [employer] Other 05-30-2023 11:00-0500 Respiratory rate 18 /min Suhas Ugo Other [facility] [employer] Other 05-30-2023 11:00-0500 SaO2% (BldA) [Mass fraction] 96 % Suhas Garrett Other [facility] [employer] Other 05-30-2023 11:00-0500 Systolic blood pressure 122 mm[Hg] Suhas Garrett Other [facility] [employer] Other 02-28-2023 10:30-0400 Body height 157.48 cm Suhasraquel Mayoadan Other [employer] Other 02-28-2023 10:30-0400 Body mass index (BMI) [Ratio] 27.98 kg/m2 Suhas Ugo Other [employer] Other 02-28-2023 10:30-0400 Body weight 69.4 kg Suhas Garrett Other [employer] Other 02-28-2023 10:30-0400 Diastolic blood pressure 76 mm[Hg] Suhas Garrett Other [facility] [employer] Other 02-28-2023 10:30-0400 Respiratory rate 16 /min Suhas Garrett Other [facility] [employer] Other 02-28-2023 10:30-0400 SaO2% (BldA) [Mass fraction] 91 % Suhas Garrett Other [facility] [employer] Other 02-28-2023 10:30-0400 Systolic blood pressure 134 mm[Hg] Suhas Garrett Other [facility] [employer] Other 12-24-2022 11:32-0400 Body height 157.48 cm Suhas Hoffman Ugo Work Phone: [facility] 250 DO Work Phone: 12-24-2022 11:32-0400 Body mass index (BMI) [Ratio] 27.07 kg/m2 Suhas Dalton Garrett Work Phone: [facility] [facility] [address] DO Work Phone: 12-24-2022 11:32-0400 Body surface area Derived from formula 1.68 m2 Suhas Garrett Work Phone: [facility] [address] DO Work Phone: 12-24-2022 11:32-0400 Body weight 67.13 kg Suhas Dalton Garrett Work Phone: [facility] [address] DO Work Phone: 12-24-2022 11:32-0400 Diastolic blood pressure 76 mm[Hg] Suhas Hoffman Ugo Work Phone: [facility] [address] DO Work Phone: 12-24-2022 11:32-0400 Heart rate 68 /min Suhas Hoffman Ugo Work Phone: [facility] [address] DO Work Phone: 12-24-2022 11:32-0400 Systolic blood pressure 118 mm[Hg] Suhas Garrett Work Phone: [facility] [address] DO Work Phone: 12-06-2022 10:30-0400 Body height 157.48 cm Suhas Garrett Other [facility] [employer] Other 12-06-2022 10:30-0400 Body mass index (BMI) [Ratio] 27.98 kg/m2 Suhas Ugo Other [employer] Other 12-06-2022 10:30-0400 Body weight 69.4 kg Suhas Ugo Other [employer] Other 12-06-2022 10:30-0400 Diastolic blood pressure 70 mm[Hg] Suhas Garrett Other [employer] Other 12-06-2022 10:30-0400 Respiratory rate 16 /min Suhas Garrett Other [employer] Other 12-06-2022 10:30-0400 SaO2% (BldA) [Mass fraction] 98 % Suhas Garrett Other [employer] Other 12-06-2022 10:30-0400 Systolic blood pressure 146 mm[Hg] Suhas Garrett Other [employer] Other 09-20-2022 11:45-0400 Body height 157.48 cm Suhas Garrett Other [employer] Other 09-20-2022 11:45-0400 Body mass index (BMI) [Ratio] 26.34 kg/m2 Suhas Garrett Other [employer] Other 09-20-2022 11:45-0400 Body weight 65.32 kg Suhas Garrett Other [employer] Other 09-20-2022 11:45-0400 Diastolic blood pressure 70 mm[Hg] Suhas Garrett Other [employer] Other 09-20-2022 11:45-0400 Respiratory rate 16 /min Suhas Ugo Other [employer] Other 09-20-2022 11:45-0400 SaO2% (BldA) [Mass fraction] 98 % Suhas Garrett Other [employer] Other 09-20-2022 11:45-0400 Systolic blood pressure 130 mm[Hg] Suhas Garrett Other [employer] Other 07-22-2022 11:30-0500 Body height 157.48 cm Suhas Garrett Other [employer] Other 07-22-2022 11:30-0500 Body mass index (BMI) [Ratio] 26.85 kg/m2 Suhas Garrett Other [employer] Other 07-22-2022 11:30-0500 Body weight 66.59 kg Suhas Garrett Other [employer] Other 07-22-2022 11:30-0500 Diastolic blood pressure 70 mm[Hg] Suhas Garrett Other [employer] Other 07-22-2022 11:30-0500 Respiratory rate 16 /min Suhas Garrett Other [employer] Other 07-22-2022 11:30-0500 SaO2% (BldA) [Mass fraction] 98 % Suhas Garrett Other [employer] Other 07-22-2022 11:30-0500 Systolic blood pressure 122 mm[Hg] Suhas Garrett Other [employer] Other 04-17-2022 11:45-0500 Body height 157.48 cm Suhas Garrett Other [employer] Other 04-17-2022 11:45-0500 Body mass index (BMI) [Ratio] 26.88 kg/m2 Suhas Garrett Other [employer] Other 04-17-2022 11:45-0500 Body weight 66.68 kg Suhas Garrett Other [employer] Other 04-17-2022 11:45-0500 Diastolic blood pressure 72 mm[Hg] Suhas Garrett Other [employer] Other 04-17-2022 11:45-0500 Respiratory rate 16 /min Suhas Garrett Other [employer] Other 04-17-2022 11:45-0500 SaO2% (BldA) [Mass fraction] 99 % Suhas Garrett Other [employer] Other 04-17-2022 11:45-0500 Systolic blood pressure 138 mm[Hg] Suhas Garrett Other [employer] Other 02-22-2022 10:15-0400 Body height 157.48 cm Suhas Garrett Other [employer] Other 02-22-2022 10:15-0400 Body mass index (BMI) [Ratio] 27.07 kg/m2 Suhas Garrett Other [employer] Other 02-22-2022 10:15-0400 Body weight 67.13 kg Suhas Garrett Other [employer] Other 02-22-2022 10:15-0400 Diastolic blood pressure 70 mm[Hg] Suhas Garrett Other [employer] Other 02-22-2022 10:15-0400 Respiratory rate 16 /min Suhas Garrett Other [employer] Other 02-22-2022 10:15-0400 SaO2% (BldA) [Mass fraction] 97 % Suhas Garrett Other [employer] Other 02-22-2022 10:15-0400 Systolic blood pressure 122 mm[Hg] Suhas Garrett Other [employer] Other 02-21-2022 10:45-0400 70 1 Suhas Garrett Work Phone: [facility] [address] [place] Work Phone: Comment on above: [id number] 02-14-2022 15:45-0400 Body height 157.48 cm Suhas Garrett Other [employer] Other 02-14-2022 15:45-0400 Body mass index (BMI) [Ratio] 26.7 kg/m2 Suhas Garrett Other [employer] Other 02-14-2022 15:45-0400 Body weight 66.23 kg Suhas Garrett Other [employer] Other 02-14-2022 15:45-0400 Diastolic blood pressure 72 mm[Hg] Suhas Garrett Other [employer] Other 02-14-2022 15:45-0400 Respiratory rate 16 /min Suhas Gaeladan Other [facility] [employer] Other 02-14-2022 15:45-0400 SaO2% (BldA) [Mass fraction] 96 % Suhas Gaeladan Other [facility] [employer] Other 02-14-2022 15:45-0400 Systolic blood pressure 132 mm[Hg] Suhas Garrett Other [facility] [employer] Other 12-26-2021 11:04-0400 Body height 157.48 cm Suhas Hoffman Ugo Work Phone: [facility] [facility] DO Work Phone: 12-26-2021 11:04-0400 Body mass index (BMI) [Ratio] 26.16 kg/m2 Suhas Dalton Garrett Work Phone: [facility]-[place] 250 DO Work Phone: 12-26-2021 11:04-0400 Body surface area Derived from formula 1.66 m2 Suhas Dalton Garrett Work Phone: [facility] 250 DO Work Phone: 12-26-2021 11:04-0400 Body weight 64.86 kg Suhas Dalton Garrett Work Phone: [facility] 250 DO Work Phone: 12-26-2021 11:04-0400 Diastolic blood pressure 68 mm[Hg] Suhas Mayoadan Work Phone: [facility] [address] DO Work Phone: 12-26-2021 11:04-0400 Heart rate 56 /min Suhas Mayoadan Work Phone: [facility] [employer] 250 DO Work Phone: 12-26-2021 11:04-0400 Systolic blood pressure 126 mm[Hg] Suhas Garrett Work Phone: [facility] 250 DO Work Phone: 12-26-2021 11:00-0400 Diastolic blood pressure 70 mm[Hg] Suhas Garrett Work Phone: [facility] 250 DO Work Phone: 12-26-2021 11:00-0400 Systolic blood pressure 130 mm[Hg] Suhas Garrett Work Phone: [facility] 250 DO Work Phone: 12-13-2021 11:39-0400 Diastolic blood pressure 80 mm[Hg] Suhas Garrett Work Phone: [facility] Work Phone: 12-13-2021 11:39-0400 Systolic blood pressure 170 mm[Hg] Suhas Garrett Work Phone: [facility] Work Phone: 12-13-2021 11:22-0400 Diastolic blood pressure 80 mm[Hg] Suhas Garrett Work Phone: [facility] Work Phone: 12-13-2021 11:22-0400 Systolic blood pressure 158 mm[Hg] Suhas Garrett Work Phone: [facility] Work Phone: 12-13-2021 11:17-0400 Body height 157.48 cm Suhas Garrett Work Phone: [facility] Work Phone: 12-13-2021 11:17-0400 Body mass index (BMI) [Ratio] 26.52 kg/m2 Suhas Garrett Work Phone: [facility] Work Phone: 12-13-2021 11:17-0400 Body surface area Derived from formula 1.67 m2 Suhas Garrett Work Phone: [facility] Work Phone: 12-13-2021 11:17-0400 Body weight 65.77 kg Suhas Garrett Work Phone: [facility] Work Phone: 12-13-2021 11:17-0400 Diastolic blood pressure 80 mm[Hg] Suhas Garrett Work Phone: [facility] Work Phone: 12-13-2021 11:17-0400 Heart rate 60 /min Suhas Garrett Work Phone: [facility] Work Phone: 12-13-2021 11:17-0400 Systolic blood pressure 160 mm[Hg] Suhas Garrett Work Phone: [facility] Work Phone: 10-01-2021 13:30-0400 Body height 157.48 cm Suhas Garrett Other [facility] [employer] Other 10-01-2021 13:30-0400 Body mass index (BMI) [Ratio] 26.34 kg/m2 Suhas Garrett Other [employer] Other 10-01-2021 13:30-0400 Body weight 65.32 kg Suhas Garrett Other [employer] Other 10-01-2021 13:30-0400 Diastolic blood pressure 72 mm[Hg] Suhas Garrett Other [employer] Other 10-01-2021 13:30-0400 Respiratory rate 18 /min Suhas Garrett Other [employer] Other 10-01-2021 13:30-0400 SaO2% (BldA) [Mass fraction] 99 % Suhas Garrett Other [employer] Other 10-01-2021 13:30-0400 Systolic blood pressure 130 mm[Hg] Suhasraquel Mayoadan Other [employer] Other 08-02-2021 13:30-0500 Body height 157.48 cm Suhasraquel Mayoadan Other [employer] Other 08-02-2021 13:30-0500 Body mass index (BMI) [Ratio] 26.52 kg/m2 Suhas Ugo Other [employer] Other 08-02-2021 13:30-0500 Body weight 65.77 kg Suhasraquel Mayoadan Other [employer] Other 08-02-2021 13:30-0500 Diastolic blood pressure 70 mm[Hg] Suhas Ugo Other [employer] Other 08-02-2021 13:30-0500 Respiratory rate 16 /min Suhas Garrett Other [employer] Other 08-02-2021 13:30-0500 SaO2% (BldA) [Mass fraction] 99 % Suhas Garrett Other [employer] Other 08-02-2021 13:30-0500 Systolic blood pressure 118 mm[Hg] Suhas Garrett Other [employer] Other 04-26-2021 13:30-0500 Body height 157.48 cm Suhas Garrett Other [employer] Other 04-26-2021 13:30-0500 Body mass index (BMI) [Ratio] 25.97 kg/m2 Suhas Garrett Other [employer] Other 04-26-2021 13:30-0500 Body weight 64.41 kg Suhas Garrett Other [employer] Other 04-26-2021 13:30-0500 Diastolic blood pressure 74 mm[Hg] Suhas Garrett Other [employer] Other 04-26-2021 13:30-0500 Respiratory rate 17 /min Suhas Garrett Other [employer] Other 04-26-2021 13:30-0500 SaO2% (BldA) [Mass fraction] 98 % Suhas Garrett Other [employer] Other 04-26-2021 13:30-0500 Systolic blood pressure 120 mm[Hg] Suhas Garrett Other [employer] Other Encounters Encounter Date Encounter Type Care Provider Facility Start: 02-14-2025 End: 02-14-2025 ambulatory Gloria Weston MD Facility:[facility] Start: 01-14-2025 End: 01-14-2025 Office outpatient visit 25 minutes Shy Wolf MD Work Phone: [facility] Comment on above: Nonrheumatic aortic valve stenosis (Primary Dx); 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; Hyperlipidemia, unspecified hyperlipidemia type; PMR (polymyalgia rheumatica) (Multi); Hypothyroidism, unspecified type; BMI 27.0-27.9,adult; Never smoked any substance; Overweight Start: 01-14-2025 End: 01-14-2025 ambulatory SHY WOLF [facility] Ambulatory Start: 12-21-2024 End: 12-21-2024 Subsequent hospital visit by physician Susie Baker Echo/Vasc Room 2 [facility] Comment on above: Aortic valve stenosi s, etiology of cardiac valve disease unspecified Start: 12-21-2024 End: 12-21-[address] [facility] Start: 12-07-2024 End: 12-07-2024 Office outpatient visit 15 minutes Reuben Bernie Burns [employer] Work Phone: [facility] Comment on above: 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 (Primary Dx); BMI 26.0-26.9,adult Start: 12-07-2024 End: 12-07[facility] Start: 10-25-2024 End: 10-25-2024 [facility] Start: 09-13-2024 End: 09-13-2024 [facility]ulatory [facility] Start: 07-28-2024 End: 07-28-2024 ambulatory Suhas Garrett Facility:[facility] Start: 05-25-2024 End: 05-25-2024 ambulatory Suhas Garrett Facility:[facility] Start: 04-16-2024 End: 04-16-2024 Office outpatient visit 25 minutes Shy Wolf MD Work Phone: [facility] Comment on above: Aortic valve stenosi s, etiology of cardiac valve disease unspecified (Primary Dx); Essential hypertension; Hyperlipidemia, unspecified hyperlipidemia type; Never smoked any substance; BMI 26.0-26.9,adult; Hypothyroidism, unspecified type Start: 04-16-2024 End: 04-16-[address] [facility] Amb[facility] Start: 02-11-2024 End: 02-11-2024 Subsequent hospital visit by physician Susie Baker Echo/Vasc Room 2 [facility] Comment on above: Nonrheumatic aortic valve stenosis; Aortic valve stenosis, etiology of cardiac valve disease unspecified Start: 02-11-2024 End: 02-11-[address] [facility] Start: 10-14-2023 End: 10-14-2023 ambulatory Suhas Kuns Facility:[facility] Start: 09-03-2023 End: 09-03-2023 ambulatory Suhas Garrett Facility:[facility] Start: 07-18-2023 End: 07-18-2023 ambulatory Suhas Mayos Other [employer] Other Start: 07-18-2023 Telephone encounter Suhas Garrett [facility] Start: 07-15-2023 End: 07-15-2023 ambulatory Suhas Garrett Other [employer] Other Start: 07-15-2023 Telephone encounter Suhas Garrett [facility] [place] Start: 07-10-2023 End: 07-10-2023 ambulatory Suhas Garrett Other [employer] Other Start: 07-10-2023 Telephone encounter Suhas Garrett [facility] [place] Start: 07-07-2023 End: 07-07-2023 ambulatory Suhas Garrett Other [employer] Other Start: 07-07-2023 Telephone encounter Suhas Garrett [facility] [place] Start: 07-04-2023 End: 07-04-2023 ambulatory Suhas Garrett Other [employer] Other Start: 07-04-2023 Office outpatient vi sit 15 minutes Suhas Garrett [facility] [place] Start: 06-19-2023 End: 06-19-2023 ambulatory Suhas Mayos Other [employer] Other Start: 06-19-2023 Telephone encounter Suhas Garrett [facility] [place] Start: 06-19-2023 End: 06-19-2023 Office outpatient visit 25 minutes Shy Wolf MD Work Phone: [facility] Comment on above: Aortic valve stenosi s, etiology of cardiac valve disease unspecified; Essential hypertension; Hyperlipidemia, unspecified hyperlipidemia type; Never smoked any substance Start: 05-30-2023 End: 05-30-2023 ambulatory Suhas Garrett Other [employer] Other Start: 05-30-2023 Office outpatient vi sit 25 minutes Suhas Garrett [facility] Start: 05-28-2023 End: 05-28-2023 ambulatory Suhas Garrett Other [employer] Other Start: 05-28-2023 Telephone encounter [facility] Start: 04-23-2023 End: 04-23-2023 ambulatory Suhas Garrett Other [employer] Other Start: 04-23-2023 Telephone encounter Suhas Garrett [facility] Start: 04-18-2023 End: 04-18-2023 ambulatory Suhas Garrett Other [employer] Other Start: 04-18-2023 Telephone encounter Suhas [facility] Start: 03-02-2023 Chart Update Suhas Garrett Work Phone: [facility] 250 DO Work Phone: Start: 02-28-2023 End: 02-28-2023 ambulatory Suhas Garrett Other [employer] Other Start: 02-28-2023 Office outpatient vi sit 15 minutes Suhas [facility] Start: 02-26-[address] Suhas Garrett Facility:[id number] Start: 01-27-2023 End: 01-27-2023 ambulatory Suhas Garrett Other [employer] Other Start: 01-27-2023 Telephone encounter Suhas Garrett [facility] [place] Start: 12-24-2022 Office outpatient vi sit 25 minutes Suhas Garrett Work Phone: [facility] 250 DO Work Phone: Start: 12-24-[address] Shy Wolf Facility: Start: 12-06-2022 End: 12-06-2022 ambulatory Suhas Garrett Other [employer] Other Start: 12-06-2022 Office outpatient vi sit 15 minutes Suhas Garrett [facility] [place] Start: 09-20-2022 End: 09-20-2022 ambulatory Suhas Garrett Other [employer] Other Start: 09-20-2022 Office outpatient vi sit 15 minutes Suhas Garrett [facility] [place] Start: 08-14-2022 End: 08-14-2022 ambulatory Suhas Garrett Other [employer] Other Start: 08-14-2022 Telephone encounter Suhas Garrett [facility] [place] Start: 07-22-2022 End: 07-22-2022 ambulatory Suhas Garrett Other [employer] Other Start: 07-22-2022 Office outpatient vi sit 15 minutes Suhas Garrett [facility] [place] Start: 04-17-2022 End: 04-17-2022 ambulatory Suhas Garrett Other [employer] Other Start: 04-17-2022 Office outpatient vi sit 15 minutes Suhas Garrett [facility] [place] Start: 04-10-2022 End: 04-10-2022 ambulatory Suhas Garrett Other [employer] Other Start: 04-10-2022 Telephone encounter Suhas Garrett [facility] [place] Start: 04-03-2022 End: 04-03-2022 ambulatory Suhas Garrett Other [employer] Other Start: 04-03-2022 Telephone encounter Suhas Ugo [facility] [place] Start: 04-02-2022 End: 04-02-2022 ambulatory Suhas Garrett Other [employer] Other Start: 04-02-2022 Telephone encounter Suhas Garrett [facility] [place] Start: 02-26-2022 End: 02-26-2022 ambulatory Suhas Garrett Other [employer] Other Start: 02-26-2022 Telephone encounter Suhas Garrett [facility] Start: 02-25-2022 End: 02-25-2022 ambulatory Suhas Garrett Other [employer] Other Start: 02-25-2022 Telephone encounter Suhas Garrett [facility] [place] Start: 02-22-2022 End: 02-22-2022 ambulatory Suhas Garrett Other [employer] Other Start: 02-22-2022 Office outpatient vi sit 25 minutes Suhas Garrett [facility] Start: 02-21-2022 Patient encounter procedure Suhas Garrett Work Phone: [facility] [address] [place] Work Phone: Start: 02-20-2022 End: 02-21-2022 ambulatory MAYO Zo CARBAJAL Facility:[facility] Start: 02-14-2022 End: 02-14-2022 ambulatory Suhas Garrett Other [employer] Other Start: 02-14-2022 Office outpatient vi sit 25 minutes Suhas Garrett [facility] Start: 01-11-2022 End: 01-11-2022 ambulatory Suhas Garrett Other [employer] Other Start: 01-11-2022 Nursing evaluation o f patient and report Suhas Garrett [facility] [place] Start: 01-11-2022 Telephone encounter Suhas Garrett [facility] [place] Start: 12-26-2021 Office outpatient vi sit 10 minutes Suhas Garrett Work Phone: [facility] 250 DO Work Phone: Start: 12-26-[address] Suhas Garrett Facility: Start: 12-20-2021 End: 12-20-2021 ambulatory Suhas Garrett Other [employer] Other Start: 12-20-2021 Telephone encounter Suhas Garrett [facility] [place] Start: 12-13-2021 Office outpatient vi sit 25 minutes Suhas Garrett Work Phone: [facility] Work Phone: Start: 11-02-2021 End: 11-02-2021 ambulatory Suhas Garrett Other [employer] Other Start: 11-02-2021 Telephone encounter Suhas Garrett [facility] [place] Start: 10-01-2021 End: 10-01-2021 ambulatory Suhas Garrett Other [employer] Other Start: 10-01-2021 Office outpatient vi sit 15 minutes Suhas Garrett [facility] [place] Start: 09-10-2021 End: 09-10-2021 ambulatory Suhas Garrett Other [employer] Other Start: 09-10-2021 Telephone encounter Suhas Garrett [facility] [place] Start: 08-20-2021 End: 08-20-2021 ambulatory Suhas Garrett Other [employer] Other Start: 08-20-2021 Telephone encounter Suhasraquel Mayoadan [facility] Start: 08-02-2021 End: 08-02-2021 ambulatory Suhasraquel Garrett Other [employer] Other Start: 08-02-2021 Office outpatient vi sit 15 minutes Suhas Ugo [facility] Start: 07-25-2021 End: 07-25-2021 ambulatory Suhasraquel Garrett Other [employer] Other Start: 07-25-2021 Telephone encounter Suhas Garrett [facility] Start: 05-08-2021 End: 05-08-2021 ambulatory Suhasraquel Garrett Other [employer] Other Start: 05-08-2021 Telephone encounter Suhasraquel Garrett [facility] Start: 04-26-2021 End: 04-26-2021 ambulatory Suhas Garrett Other [employer] Other Start: 04-26-2021 Office outpatient vi sit 25 minutes Suhas [facility] Procedures Date Procedure Procedure Detail Performing [...] DTaP/Tdap/Td Vaccines (2 - Td or Tdap) [facility] Start: 01-26-2026 End: 01-26-2026 Patient encounter procedure 01/26/2026 11:00 AM EDT Office Visit [facility] [address] [place] [address] Shy Wolf MD [address] [place] [address] [facility] Start: 12-21-2025 Echocardiography Echocardiogram [facility] Start: 12-20-2025 End: 12-20-2025 Patient encounter procedure 12/20/2025 10:45 AM EDT Appointment [facility] [address] [facility] [address] [place] [address] [facility] Start: 12-14-2025 End: 01-14-2027 US Heart Transthoracic Transthoracic Echo Complete Echocardiography Routine Nonrheumatic aortic valve stenosis Expected: 12/14/2025 (Approximate), Expires: 01/14/2027 [facility] Work Phone: Comment on above: Expected: 12/14/2025 (Approximate), Expi res: 01/14/2027 Start: 08-07-2025 Medicare Annual Wellness Visit Medicare Annual Wellness Visit (AWV) [facility] Start: 02-10-2025 Echocardiography Echocardiogram [facility] Start: 02-07-2025 Influenza vaccination Influenza Vaccine (#1) [facility] Start: 01-14-2025 End: 04-16-2026 Heart Transthoracic Transthoracic Echo Complete Echocardiography Routine Aortic valve stenosis, etiology of cardiac valve disease unspecified Expected: 01/14/2025 (Approximate), Expires: 04/16/2026 [facility] Service Area Work Phone: Comment on above: Expected: 01/14/2025 (Approximate), Expi res: 04/16/2026 Start: 01-14-2025 End: 01-14-2025 Patient encounter procedure 01/14/2025 11:00 AM EDT Office Visit [address] [place] [address] Shy Wolf MD [address] [place] [address] [facility] Start: 12-21-2024 End: 12-21-2024 Patient encounter procedure 12/21/2024 12:30 PM EDT Appointment [facility] [address] [place] [address] [facility] Start: 10-06-2024 COVID-19 Vaccine ( season) COVID-19 Vaccine () [facility] Start: 03-16-2024 End: 03-16-2024 Patient encounter procedure 03/16/2024 11:20 AM EDT Office Visit [place] [id number] [place] [address] Shy Wolf MD [address] [place] [address] [facility] Start: 02-19-2024 Screening for osteoporosis Bone Density Scan [facility] Start: 02-11-2024 End: 02-11-2024 Patient encounter procedure 02/11/2024 12:30 PM EDT Appointment [place] [id number] [place] [address] [facility] Start: 02-08-2024 COVID-19 Vaccine ( season) COVID-19 Vaccine ( season) [facility] Start: 02-08-2024 Influenza vaccination Influenza Vaccine (#1) [facility] Start: 02-08-2024 End: 06-19-2025 US Heart Transthoracic Transthoracic Echo (TTE) Complete Echocardiography Routine Aortic valve stenosis, etiology of cardiac valve disease unspecified Expected: 02/08/2024 (Approximate), Expires: 06/19/2025 [facility] Service Area Work Phone: Comment on above: Expected: 02/08/2024 (Approximate), Expi res: 06/19/2025 Start: 06-19-2023 FUV, Provider: Shy Wolf, Status: Pen, Time: 11:00 AM FUV, Provider: Shy Wolf, Status: Pen, Time: 11:00 AM [facility] [address] DO Work Phone: Start: 05-28-2023 COVID-19 Vaccine (5 - Moderna series) COVID-19 Vaccine (5 - Moderna series) [facility] Start: 02-26-2023 ECHO, Provider: [place] [facility] 01,[id number], Status: Pen, Time: 10:45 AM ECHO, Provider: [place] [facility] 01,[id number], Status: Pen, Time: 10:45 AM [facility] [address] DO Work Phone: Start: 12-24-2022 FUV, Provider: Shy Wolf, Status: Pen, Time: 11:20 AM FUV, Provider: Shy Wolf, Status: Pen, Time: 11:20 AM [facility] Work Phone: Start: 02-21-2022 CAROTID, Provider: SAMUEL HHVI ULTRASOUND 01,[id number], Status: Pen, Time: 12:30 PM CAROTID, Provider: SAMUEL HHVI ULTRASOUND 01,[id number], Status: Pen, Time: 12:30 PM [facility] Work Phone: Start: 02-21-2022 ECHO, Provider: SAMUEL HHVI ULTRASOUND 01,[id number], Status: Pen, Time: 10:45 AM ECHO, Provider: SAMUEL HHVI ULTRASOUND 01,[id number], Status: Pen, Time: 10:45 AM [facility] Work Phone: Start: 01-17-2022 CAROTID, Provider: SAMUEL HHVI ULTRASOUND 01,[id number], Status: Pen, Time: 2:30 PM CAROTID, Provider: SAMUEL HHVI ULTRASOUND 01,[id number], Status: Pen, Time: 2:30 PM [facility] Work Phone: Start: 01-17-2022 ECHO, Provider: SAMUEL YII ULTRASOUND 01,[id number], Status: Pen, Time: 1:30 PM ECHO, Provider: SAMUEL HHVI ULTRASOUND 01,[id number], Status: Pen, Time: 1:30 PM [facility] Work Phone: Start: 12-26-2021 NURSEVST, Provider: MAGDA DANIEL DENTAL TECHNOLOGIST 1,[id number], Status: Pen, Time: 11:00 AM NURSEVST, Provider: MAGDA DANIEL DENTAL TECHNOLOGIST 1,[id number], Status: Pen, Time: 11:00 AM [facility] Work Phone: Start: 1996 Hepatitis B Vaccines (1 of 3 - Risk 3-dose series) Hepatitis B Vaccines (1 of 3 - Risk 3-dose series) [facility] Start: 08-11-1955 Hepatitis A Vaccines (1 of 2 - Risk 2-dose series) Hepatitis A Vaccines (1 of 2 - Risk 2-dose series) [facility] Start: 1936 Creatinine measurement Creatinine Level [facility] Start: 1936 Lipid panel Lipid Panel [facility] Start: 1936 Medicare Annual Wellness Visit Medicare Annual Wellness Visit (AWV) [facility] Start: 1936 Potassium measurement Potassium Level [facility] Start: 1936 Thyroid stimulating hormone measurement TSH Level [facility] ECG 12 Lead ECG 12 Lead ECG Routine 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 Ordered: 12/08/2024 [facility] Service Area Work Phone: Comment on above: Ordered: 12/08/2024 End: 02-11-2024 US Heart Transthoracic [facility] Service Area Work Phone: Comment on above: Once for 1 Occurrences starting 02/11/20 24 until 02/11/2024 Immunizations Immunization Date Immunization Notes Care Provider Fa adin 04-23-2024 Pneumococcal conjuga te vaccine, 20-valent (PREVNAR 20) Shy Wolf MD Work Phone: [facility] Work Phone: 04-07-2024 Moderna COVID-19 vaccine, 12 years and older (50mcg/0.5mL)(Spikevax) Shy Wolf MD Work Phone: [facility] Work Phone: 04-07-2024 Seasonal trivalent influenza vaccine, adjuvanted, preservative free Shy Wolf MD Work Phone: [facility] Work Phone: 04-07-2024 influenza virus vaccine, unspecified formulation Reuben Burns HOT BALLER-EQUIPMENT TESTER Work Phone: [facility] Work Phone: 06-07-2023 RESPIRATORY SYNCYTIA L VIRUS (RSV), ELIGIBLE PTS, 0.5 ML (ABRYSVO) Shy Wolf MD Work Phone: [facility] Work Phone: 04-02-2023 Influenza, Seasonal, Quadrivalent, Adjuvanted Shy Wolf MD Work Phone: [facility] Work Phone: 04-02-2023 Moderna COVID-19 vaccine, 12 years and older (50mcg/0.5mL)(Spikevax) Shy Wolf MD Work Phone: [facility] Work Phone: 04-02-2023 influenza virus vaccine, unspecified formulation Susie 2 [facility] Work Phone: 04-17-2022 Moderna COVID-19 Bivalent 50 MCG/0.5ML Intramuscular Suspension Suhas Garrett Work Phone: [facility] 250 DO Work Phone: 03-21-2022 Fluad Quadrivalent 0 .5 ML Intramuscular Prefilled Syringe Suhas Garrett Work Phone: [facility] 250 DO Work Phone: 03-21-2022 influenza, seasonal, injectable Suhas Garrett Other [facility] Other 11-14-2021 Moderna COVID-19 Vaccine 100 MCG/0.5ML Intramuscular Suspension Suhas Garrett Work Phone: [facility] Work Phone: 04-05-2021 Moderna COVID-19 Vaccine 100 MCG/0.5ML Intramuscular Suspension Suhas Garrett Work Phone: [facility] Work Phone: 03-19-2021 influenza, seasonal, injectable Suhas Garrett Other [facility] Other 08-08-2020 Moderna COVID-19 Vaccine 100 MCG/0.5ML Intramuscular Suspension Suhas Garrett Work Phone: [facility] Work Phone: 07-11-2020 Moderna COVID-19 Vaccine 100 MCG/0.5ML Intramuscular Suspension Suhas Garrett Work Phone: [facility] Work Phone: 04-28-2020 pneumococcal polysaccharide vaccine, 23 valent Suhas Garrett Other [facility] Other 03-06-2020 Seasonal trivalent influenza vaccine, adjuvanted, preservative free Suhas Garrett Work Phone: [facility] Work Phone: 03-06-2020 influenza, seasonal, injectable Suhas Garrett Other [facility] Other 02-08-2020 influenza virus vaccine, unspecified formulation Suhas Garrett Work Phone: [facility] Work Phone: 02-08-2020 influenza, seasonal, injectable Suhas Garrett Other [facility] Other 05-04-2019 zoster vaccine recombinant Suhas Garrett Other [facility] Other 03-09-2019 influenza, high dose seasonal, preservative-free Suhas Garrett Work Phone: [facility] Work Phone: 03-04-2019 influenza, seasonal, injectable Suhas Garrett Other [facility] Other 02-04-2019 zoster vaccine recombinant Suhas Garrett Other [facility] Other 05-12-2018 tetanus toxoid, redu bety diphtheria toxoid, and acellular pertussis vaccine, adsorbed Suhas Garrett Other [facility] Other 03-16-2018 Seasonal trivalent influenza vaccine, adjuvanted, preservative free Shy Wolf MD Work Phone: [facility] Work Phone: 03-09-2018 influenza virus vaccine, unspecified formulation Suhas Garrett Work Phone: [facility] Work Phone: 04-09-2017 influenza virus vaccine, unspecified formulation Suhas P Ugo Work Phone: [facility] Work Phone: 03-28-2017 Seasonal trivalent influenza vaccine, adjuvanted, preservative free Suhas Mayos Work Phone: [facility] Work Phone: 05-24-2016 pneumococcal conjuga te vaccine, 13 valent Shy Wolf MD Work Phone: [facility] Work Phone: 05-23-2016 pneumococcal conjuga te vaccine, 13 valent Suhas Kuns Other [facility] Other 04-01-2016 Seasonal trivalent influenza vaccine, adjuvanted, preservative free Suhas P Gaels Work Phone: [facility] Work Phone: 03-09-2016 influenza virus vaccine, unspecified formulation Suhas P Kuns Work Phone: [facility] Work Phone: 03-09-2016 pneumococcal conjuga te vaccine, 13 valent Suhas Dalton Mayos Work Phone: [facility] Work Phone: 04-07-2015 influenza, injectabl e, quadrivalent, contains preservative Suhas P Kuns Work Phone: [facility] Work Phone: 03-09-2015 influenza virus vaccine, unspecified formulation Suhas P Ugo Work Phone: [facility] Work Phone: 04-05-2014 influenza, seasonal, injectable, preservative free Suhas P Gaels Work Phone: [facility] Work Phone: 03-09-2014 influenza virus vaccine, whole virus Suhas Garrett Work Phone: [facility] Work Phone: 03-23-2013 influenza, seasonal, injectable Suhas P Kuns Work Phone: [facility] Work Phone: 03-09-2013 influenza virus vaccine, unspecified formulation Suhas P Kuns Work Phone: [facility] Work Phone: 04-14-2012 influenza, injectabl e, quadrivalent, contains preservative Suhas Kuns Other [facility] Other 06-09-2011 influenza virus vaccine, unspecified formulation Suhasraquel Garrett Work Phone: [facility] Work Phone: 06-09-2010 influenza virus vaccine, unspecified formulation Suhasraquel Garrett Work Phone: [facility] Work Phone: 06-09-2009 influenza virus vaccine, unspecified formulation Suhas Garrett Work Phone: [facility] Work Phone: 05-30-2009 novel [id number], preservative-free, injectable Suhasraquel Garrett Work Phone: [facility] Work Phone: 10-19-2007 varicella virus vaccine Belkys Garrett Work Phone: [facility] Work Phone: 06-09-2006 pneumococcal polysaccharide vaccine, 23 valent Suhas Garrett Work Phone: [facility] Work Phone: Payers Date Payer Category Payer Self-pay 2022 Managed Care (Private) [facility] [id number] 2022 Private Health Insurance [id number] 2001 Medicare [id number] 2001 Unknown 1959 Medicare [id number] 1959 Private Health Insurance [id number] 1936 Unknown [id number] 2.840.1.951839.3.579. 2.593 1936 Unknown [id number] [id number]. 2.356 1936 Unknown [id number] 2.840.1.402066.3.579. 2.356 1936 Unknown [id number] 2.840.1.823189.3.579. 2.1068 1936 Unknown [id number] 2.840.1.079760.3.579. 2.1246 1936 Unknown [id number] 2.840.1.343767.3.579. 2.1246 1936 Unknown [id number] 2.840.1.223634.3.579. 2.1244 1936 Unknown [id number] 2.840.1.815780.3.579. 2.1244 1936 Unknown [id number] 2.840.1.164453.3.579. 2.1244 1936 Unknown [id number] 2.840.1.545769.3.579. 2.196 1936 Unknown [id number] 2.16840.1.486161.3.579. 2.196 1936 Unknown [id number] 2.16840.1.909061.3.579. 2.196 Unknown [id number] 2.16840.1.694676.3.579. 2.531 Unknown [id number] 2..840.1.896451.3.579. 2.531 Unknown [id number] 2.16.840.1.944344.3.579. 2.531 Unknown [id number] [id number]. 2.531 Social History Date Type Detail Facility Unknown if ever smoked [facility] Other Start: 06-19-2023 End: 01-14-2025 Sex Assigned At [facility] Other Start: 06-19-2023 End: 01-14-2025 Caffeine use Caffeine use [facility] Work Phone: Start: 06-19-2023 Tobacco smoking stat us IDIS Never smoked tobacco [facility] Work Phone: Start: 06-19-2023 Tobacco use and exposure Smokeless tobacco non-user [facility] Work Phone: Start: 1935 [facility] Start: 06-09-2023 End: 04-16-2024 Exposure to SARS-CoV-2 (event) Not sure [facility] Start: 04-16-2024 End: 01-14-2025 Alcoholic beverage intake Current drinker of alcohol (finding) [facility] Work Phone: Start: 05-03-2022 Sex Female [facility] Clinical Notes 02-15-2015 to 01-14-2025 Shy Wolf MD - 01/14/2025 11:00 AM EDTPatient InstructionsAttaBethel Burns APRN-DWIGHT - 12/07/2024 3:00 PM EDTPatient InstructionsShy Wolf [...] Scribe Attestation By signing my name below, IRichelle LPN, Scribe attest that this documentation has [...] discussion and plan. documented in this encounter [facility] Work Phone: 01-14-2025 Instructions Richelle Frey LPN [...] Everywhere.Heart Healthy Diet (Greenlandic)documented in this encounter [facility] Work Phone: 12-07-2024 History of Present illness [...] documented in patient record. Reuben Burns MSN, HOT BALLER-EQUIPMENT TESTER, PMHNP-[facility] [place], [place] Please excuse any errors in grammar or translation related to this dictation. Voice recognition software was utilized to prepare this document. documented in this encounter [facility] Work Phone: 12-07-2024 Instructions JENNYFER Garsia - [...] Wolf as scheduled documented in this encounter [facility] Work Phone: 12-07-2024 Miscellaneous Notes Addended by: REUBEN BURNS on: 12/08/2024 02:08 PM Modules accepted: Orders documented in this encounter [facility] Work Phone: 12-07-2024 Note Addended by: REUBEN BURNS on: 12/08/2024 02:08 PM Modules accepted: Orders [facility] Work Phone: 04-16-2024 History of Present illness [...] signing my name below, I, Sherin Stearns LPN, Scribe attest that this documentation has [...] discussion and plan. documented in this encounter [facility] Work Phone: 04-16-2024 Instructions Sherin Mendez LPN [...] month follow up documented in this encounter [facility] Work Phone: 07-18-2023 Evaluation note Encounter Date Diagnosis Assessment Notes Jul, PMR (polymya lgia rheumati ca) (ICD-10 - M35.3) [facility] Other 02-06-2024 Evaluation note* Encounter Date Diagnosis Assessment Notes Treatment Notes Treatment Clinical Notes Jul, PMR (polymyalgia rheumatica) (ICD-10 - M35.3) [facility] Other 02-01-2024 Evaluation note* Encounter Date Diagnosis Assessment Notes Treatment Notes Treatment Clinical Notes Jul, Hypothyroidism (ICD-10 - E03.9) [facility] Other 01-29-2024 Evaluation note* Encounter Date Diagnosis Assessment Notes Treatment Notes Treatment Clinical Notes Jun, Hypothyroidism (ICD- 10 - E03.9) Jun, Hyperthyroidism (ICD-10 - E05.90) [facility] Other 01-26-2024 Evaluation note* Encounter Date Diagnosis [...] medications in combination with eachother. Also discussed intermediate steriod use in regards to her [...] sooner she is welcome to call. [facility] Other 01-11-2024 Evaluation note* Encounter Date Diagnosis Assessment Notes Treatment Notes Treatment Clinical Notes Jun, PMR (polymyalgia rheumatica) (ICD-10 - M35.3) [facility] Other 01-11-2024 History of Present illness Narrative* Shy Wolf MD - 06/19/2023 11:00 AM EST Graciela Villatoro is a 87 y.o. female Chief [...] is being tapered gradually Shy Wolf MD, [facility] Review of Systems All other systems [...] of Shy Wolf MD. [facility]: [phone] Instructions* Patient Instructions* Yevgeniy Cortez MA - [...] time of your visit. [facility]: [phone] Evaluation note* Encounter Date Diagnosis Assessment Notes [...] the patient get the RSV vaccine. [facility] Other 12-20-2023 Evaluation note* Encounter Date Diagnosis Assessment Notes Treatment Notes Treatment Clinical Notes May, Hypertension (ICD-10 - I10) May, Hypothyroidism (ICD-10 - E03.9) [facility] Other 11-10-2023 Evaluation note* Encounter Date Diagnosis Assessment Notes Treatment Notes Treatment Clinical Notes Apr, PMR (polymyalgia rheumatica) (ICD-10 - M35.3) [facility] Other 09-22-2023 Evaluation note* Encounter Date Diagnosis Assessment Notes Treatment Notes Treatment Clinical Notes Feb, PMR (polymyalgia rheumatica) (ICD-10 - M35.3) She was encouraged to take 2.5mg daily. Patient is agreeable. Feb, Hypertension (ICD-10 - I10) Blood pressure is satisfactory, she is to follow with cardiology as scheduled. [facility] Other 08-21-2023 Evaluation note* Encounter Date Diagnosis Assessment Notes Treatment Notes Treatment Clinical Notes Jan, Hypertension (ICD-10 - I10) [facility] Other 06-30-2023 Evaluation note* Encounter Date Diagnosis [...] very confident this is due to the [facility]. She will see Dr. Wolf in three weeks therefore was advised to make sure she discusses the swelling with him and see what he would like to do. Patient is agreeable. [facility] Other 04-14-2023 Evaluation note* Encounter Date Diagnosis [...] daily. We will continue to monitor. [facility] Other 03-08-2023 Evaluation note* Encounter Date Diagnosis Assessment Notes Treatment Notes Treatment Clinical Notes Aug, PMR (polymyalgia rheumatica) (ICD-10 - M35.3) [facility] Other 02-13-2023 Evaluation note* Encounter Date Diagnosis [...] states she has an upcoming appointment with social work assistant and she will discuss making medication changes at that time. [facility] Other 11-09-2022 Evaluation note* Encounter Date Diagnosis [...] cut Apr, Hyperlipidemia (ICD-10 - E78.5) [facility] Other 11-02-2022 Evaluation note* Encounter Date Diagnosis Assessment Notes Treatment Notes Treatment Clinical Notes Apr, PMR (polymyalgia rheumatica) (ICD-10 - M35.3) [facility] Other 10-26-2022 Evaluation note* Encounter Date Diagnosis Assessment Notes Treatment Notes Treatment Clinical Notes Mar, Lumbar back pain (ICD-10 - M54.50) [facility] Other 09-20-2022 Evaluation note* Encounter Date Diagnosis Assessment Notes Treatment Notes Treatment Clinical Notes Feb, Elevated liver function tests (ICD-10 - R79.89) [facility] Other 09-16-2022 Evaluation note* Encounter Date Diagnosis Assessment Notes Treatment Notes Treatment Clinical Notes Feb, Acute pain of left shoulder (ICD-10 - M25.512) [facility] report reviewed from 02/20/22 . The [...] pain (ICD-10 - R10.13) The patient advised [place] could be causing her GI upset , [...] Boniva at her next office visit. [facility] Other 09-08-2022 Evaluation note* Encounter Date Diagnosis [...] - M85.80) Noted on Lumbar x-ray. [facility] Other 08-05-2022 Evaluation note* Encounter Date Diagnosis Assessment Notes Treatment Notes Treatment Clinical Notes Jan, COVID-19 (ICD-10 - U07.1) [facility] Other 08-05-2022 Evaluation note* Encounter Date Diagnosis Assessment Notes Treatment Notes Treatment Clinical Notes Jan, Cough (ICD-10 - R05.9) In house covid test is positive. Treatment plan discussed in TE. [facility] Other 07-14-2022 Evaluation note* Encounter Date Diagnosis Assessment Notes Treatment Notes Treatment Clinical Notes Dec, PMR (polymyalgia rheumatica) (ICD-10 - M35.3) [facility] Other 05-27-2022 Evaluation note* Encounter Date Diagnosis Assessment Notes Treatment Notes Treatment Clinical Notes October, PMR (polymyalgia rheumatica) (ICD-10 - M35.3) [facility] Other 04-25-2022 Evaluation note* Encounter Date Diagnosis [...] The patient encourged to continue following with social work assistant annually in December as scheduled. I did forward a copy of most current blood work results . [facility] Other 04-04-2022 Evaluation note* Encounter Date Diagnosis Assessment Notes Treatment Notes Treatment Clinical Notes Sep, PMR (polymyalgia rheumatica) (ICD-10 - M35.3) Sep, Hypertension (ICD-10 - I10) [facility] Other 02-24-2022 Evaluation note* Encounter Date Diagnosis [...] needed. We will continue to montior. [facility] Other 02-16-2022 Evaluation note* Encounter Date Diagnosis Assessment Notes Treatment Notes Treatment Clinical Notes Jul, PMR (polymyalgia rheumatica) (ICD-10 - M35.3) [facility] Other 11-30-2021 Evaluation note* Encounter Date Diagnosis Assessment Notes Treatment Notes Treatment Clinical Notes Apr, PMR (polymyalgia rheumatica) (ICD-10 - M35.3) [facility] Other 11-18-2021 Evaluation note* Encounter Date Diagnosis [...] (ICD-10 - E03.9) Blood work ordered. [facility] Other [id number] History general Narrative - Reported* Type Description Date Medical History Shingles Medical History 02-15-15-mammogram-negativ e Medical History 01/20124874-usedrundfev-xpdbcu, repea t in 3 yrs Medical History 03/2017- colonoscopy- normal Medical History f/u with cardiology NO Medical History ECHO 09/2016 Surgical History Appendectomy Surgical History Gallbladder Removal Surgical History Ovarian Cyst Removal Surgical History Coccyx repair Surgical History Cataracts Bilateral Eyes Surgical History thyroidectomy Dr. Forbes 10/14/2019 Hospitalization History Childbirth x5 Hospitalization History See Above [facility] Other Evaluation noteNo InformationNort [employer] Other Evaluation note* Diagnosis Aortic valve stenosis, etiology of cardiac valve disease unspecified Essential hypertension Unspecified essential hypertension Hyperlipidemia, unspecified hyperlipidemia type Never smoked any substance documented in this encounter [facility] Work Phone: Evaluation note* Diagnosis Aortic valve stenosis, etiology of cardiac valve disease unspecified- Primary Essential hypertension Unspecified essential hypertension Hyperlipidemia, unspecified hyperlipidemia type Never smoked any substance BMI 26.0-26.9,adult Hypothyroidism, unspecified type documented in this encounter [facility] Work Phone: Evaluation note* Diagnosis Nonrheumatic aortic valve stenosis Aortic valve stenosis, etiology of cardiac valve disease unspecified documented in this encounter [facility] Work Phone: Evaluation note* Diagnosis 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- Primary BMI 26.0-26.9,adult documented in this encounter [facility] Work Phone: Evaluation note* Diagnosis Aortic valve stenosis, etiology of cardiac valve disease unspecified documented in this encounter [facility] Work Phone: Evaluation note* Diagnosis Nonrheumatic aortic valve stenosis- Primary 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 Hyperlipidemia, unspecified hyperlipidemia type PMR (polymyalgia rheumatica) (Multi) Polymyalgia rheumatica Hypothyroidism, unspecified type BMI 27.0-27.9,adult Never smoked any substance Overweight documented in this encounter [facility] Work Phone: Reason for visit Narrative* CV Imaging (Routine) - Authorized Specialty Diagnoses / Procedures Referred By Contac t Referred To Contact Cardiology Diagnoses Aortic valve stenosis, etiology of cardiac valve disease unspecified Procedures Transthoracic Echo Complete CO ECHO TTHRC R-T 2D W/WOM-MODE COMPL SPEC&COLR D Shy Wolf MD [address] [place] [id number] Phone: tel: fax: Referral ID Status Reason Start Date Expiration Date Visits Requested Visits Authorized [id number] Authorized Perform Procedure 04/16/2024 04/16/2025 1 1 [facility] Work Phone: Chief Complaint * LAVONNE VILLATORO [...] being tapered gradually * Shy Wolf MD, [facility] * LAVONNE VILLATORO is being seen for [...] being tapered gradually * Shy Wolf MD, [facility] Family History No Family History Records [...] Father(V17.3, Z82.49) Status:Active Family history of stent: Tete ter(V19.8, Z84.89) Status:Active Summary Purpose Advance Directives No Advanced Directives Records FoundNo Advanced Directives Records FoundNo Advanced Directives Records FoundNo Advanced Directives Records FoundNo Advanced Directives Records FoundNo Advanced Directives Records FoundNo Advanced Directives Records FoundNo Advanced Directives Records Found Reason for Referral Reason consult and tr eat with Dr.Emily Valverde at [facility] Diagnosis 1 PMR (polymyalgia rhe umatica) (M35.3) Referral Organization [facility] [place] Referring Provider First Name Suhas Referring Provider Last Name Ugo Referring Provider Specialty Family Prac sukhjinder Referred Organization [facility] Referred Address [address] [place] [place], [place],[address] Referred Provider Specialty Rheumatology Referral Priority Routine General Notes Zaida Tinsley 10:11:01 AM >received today, completed referral form and faxed to their referring physicians department. Patient will be contacted by the [facility] to schedule her appointment. Specialty Diagnoses / Procedures Referred By Alberto t Referred To Contact Cardiology Diagnoses Aortic valve stenosis, etiology of cardiac valve disease unspecified Procedures Transthoracic Echo (TTE) Complete CO ECHO TTHRC R-T 2D W/WOM-MODE COMPL SPEC&COLR D Shy Wolf MD [address] [place] [address], [address] [id number] Referral ID Status Reason Start Date Expiration Date Visits Requested Visits Authorized [id number] Pending Review Perform Procedure 06/19/2023 06/18/2024 1 1 Specialty Diagnoses / Procedures Referred By Alberto t Referred To Contact Cardiology Diagnoses Aortic valve stenosis, etiology of cardiac valve disease unspecified Procedures Follow Up In Cardiology Shy Wolf MD [address] [place], [place] [address] 2, [address] [address] [address] Shy Wolf MD [address] [place] [address] 2, [address] [address] Referral ID Status Reason Start Date Expiration Date V isits Requested Visits Authorized [id number] Authorized 06/19/2023 06/18/2024 1 1 Additional Source Comments REASON FOR VISIT (unrecogniz ed section and content) Reason Comments Follow-up 9 month, echocardiog taz results Specialty Diagnoses / Procedures Referred By Contac t Referred To Contact Cardiology Diagnoses Aortic valve stenosis, etiology of cardiac valve disease unspecified Procedures Follow Up In Cardiology Shy Wolf MD [address] [place] [address], [address] [address] Phone: tel: fax: Shy Wolf MD [address] [place] [address], [address] [address] Phone: tel: fax: Referral ID Status Reason Start Date Expiration Date V isits Requested Visits Authorized [id number] Authorized 04/16/2024 04/16/2025 1 1 Reason Comments Follow-up 6m Reason Comments Follow-up 9m Referral ID Status Reason Start Date Expiration Date V isits Requested Visits Authorized [id number] Authorized 06/19/2023 06/18/2024 1 1 Specialty Diagnoses / Procedures Referred By Contac t Referred To Contact Cardiology Diagnoses Nonrheumatic aortic valve stenosis Procedures Transthoracic Echo (TTE) Complete CO ECHO TRANSTHORC R-T 2D W/WO M-MODE REC F-UP/LMTD CO DOP ECHOCARD COLOR FLOW VELOCITY MAPPING CO DOP ECHOCARD PULSE WAVE W/SPECTRAL F-UP/LMTD STD Shy Wolf MD [address] [place] [address], [address] [address] Referral ID Status Reason Start Date Expiration Date Visits Requested Visits Authorized [id number] Authorized Perform Procedure 03/03/2023 08/30/2023 1 1 Reason Comments Pre-op Clearance POC for spinal cord stimulator, scheduled 12.13.[address] Weston. INFORMATION SOURCE (unrecogn ized section and content) DATE CREATED AUTHOR 03/06/2022 [facility] DATE CREATED AUTHOR AUTHOR'S ORGANIZ ATION 12/25/2022 [facility] DATE CREATED AUTHOR AUTHOR'S ORGANIZ ATION 12/25/2022 [employer] DATE CREATED AUTHOR AUTHOR'S ORGANIZ ATION 03/03/2023 [facility] DATE CREATED AUTHOR AUTHOR'S ORGANIZ ATION 07/29/2024 [facility] DATE CREATED AUTHOR AUTHOR'S ORGANIZ ATION 12/25/2024 [facility] DATE CREATED AUTHOR AUTHOR'S ORGANIZ ATION 01/16/2025 [facility] DATE CREATED AUTHOR AUTHOR'S ORGANIZ ATION 02/23/[address] [facility] Care Teams (unrecognized sec tion and content) Jewel Inserter Relationship Specialty Start Date End Date Suhas Garrett DO PCP - General 06/09/99 Jewel Inserter Relationship Specialty Start Date End Date Suhas Garrett DO [address] [place] [address] PCP - General Family Medicine 01/30/24 Jewel Inserter Relationship Specialty Start Date End Date Suhas Garrett DO [address] [place] [address] PCP - General Family Medicine 01/30/24 Jewel Inserter Relationship Specialty Start Date End Date Suhas Garrett DO [address] [place] [address] PCP - General Family Medicine 01/30/24 Jewel Inserter Relationship Specialty Start Date End Date Suhas Garrett DO [address] [place] [address] PCP - General Family Medicine 01/30/24 Jewel Inserter Relationship Specialty Start Date End Date Suhas Garrett DO [facility] [place] [address] PCP - General Family Medicine 01/30/24 FOR [...] BE BASED ON THE PRIMARY CLINICAL RECORDS. [employer] provides no warranty or guarantee of the accuracy or completeness of information in this document.
--- NOTE | 2025-03-24 11:28 | PM.PRESUREVA ---
History of Present Illness History of Present Illness Chief complaint: LUMBAR PAIN Narrative: Mrs. Murillo is a pleasant 89-year-old female who presents to presurgical testing with complaints of low back pain and the diagnosis of lumbar spinal stenosis. She is scheduled on April 04 for surgery of placement of lumbar spinal cord stimulator implant with Dr. Weston. Review of Systems ROS Narrative REVIEW OF SYSTEMS: Negative except as stated in HPI, ten or more systems reviewed. Constitutional: No fever, chills, weakness ENT: No sore throat or epistaxis Cardiovascular: No edema, chest pain, palpitations, or activity intolerance Respiratory: No shortness of breath, cough, or wheezing Musculoskeletal: No joint pain to her hands associated with her polymyalgia rheumatica and complaints of pain to the low back Gastrointestinal: No abdominal pain, constipation, diarrhea, or vomiting Genitourinary: No dysuria or hematuria Neurological: No numbness, tingling, weakness, or headache Psychiatric: No mood changes PFSH PFSH Medical History 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 ?I10 - Essential (primary) hypertension (ICD-10) Lumbar stenosis with neurogenic claudication ?M48.062 - Spinal stenosis, lumbar region with neurogenic claudication (ICD-10) Back pain ?M54.9 - Dorsalgia, unspecified (ICD-10) Shoulder pain ?M25.519 - Pain in unspecified shoulder (ICD-10) Seizures (1987) ?R56.9 - Unspecified convulsions (ICD-10) Heartburn ?R12 - Heartburn (ICD-10) Cataract ?H26.9 - Unspecified cataract (ICD-10) Hepatic lesion ?K76.9 - Liver disease, unspecified (ICD-10) Insomnia ?G47.00 - Insomnia, unspecified (ICD-10) Lung density on x-ray ?J98.4 - Other disorders of lung (ICD-10) Multinodular thyroid ?E04.2 - Nontoxic multinodular goiter (ICD-10) Hypothyroidism (acquired) ?E03.9 - Hypothyroidism, unspecified (ICD-10) Hyperlipidemia ?E78.5 - Hyperlipidemia, unspecified (ICD-10) Aortic stenosis ?I35.0 - Nonrheumatic aortic (valve) stenosis (ICD-10) Polymyalgia rheumatica ?M35.3 - Polymyalgia rheumatica (ICD-10) Hyperthyroidism ?E05.90 - Thyrotoxicosis, unspecified without thyrotoxic crisis or storm (ICD-10) Heart murmur ?R01.1 - Cardiac murmur, unspecified (ICD-10) HTN (hypertension) ?I10 - Essential (primary) hypertension (ICD-10) Surgical History S/P epidural steroid injection ?Z92.241 - Personal history of systemic steroid therapy (ICD-10) History of cataract extraction with lens replacement H/O excision of mass ?Z98.890 - Other specified postprocedural states (ICD-10) H/O colonoscopy ?Z98.890 - Other specified postprocedural states (ICD-10) 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 - Postprocedural hypothyroidism (ICD-10) Hx of cholecystectomy ?Z90.49 - Acquired absence of other specified parts of digestive tract (ICD-10) History of ovarian cystectomy ?Z98.890 - Other specified postprocedural states (ICD-10) ?Z87.42 - Personal history of other diseases of the female genital tract (ICD-10) History of appendectomy ?Z90.49 - Acquired absence of other specified parts of digestive tract (ICD-10) Family History Other Family history of DVT Family history of aneurysm Family history of cancer Family history of diabetes mellitus Family history of heart disease Social History Within the past year, how often did you have a drink containing alcohol: monthly or less Smoking status: Never smoker Non-prescribed substance use: denies use Highest level of school completed/degree received: high school graduate Little interest or pleasure in doing things: not at all Feeling down, depressed, or hopeless: not at all Meds Home Medications and Allergies Home Medications ?Medication ?Instructions ?Recorded ?Confirmed ?Type aspirin 81 mg capsule 81 mg PO DAILY 08/25/23 03/24/25 History carvedilol 6.25 mg tablet 6.25 mg PO Q12H 08/25/23 03/24/25 History levothyroxine 100 mcg tablet 100 mcg PO DAILY 08/25/23 03/24/25 History lorazepam 0.5 mg tablet 0.5 mg PO Q8H PRN anxiety 10/25/24 03/24/25 History acetaminophen 650 mg 1,300 mg PO Q12H PRN pain 11/29/24 03/24/25 History tablet,extended release amlodipine 5 mg tablet 5 mg PO DAILY 11/29/24 03/24/25 History losartan 100 1 tab PO DAILY 11/29/24 03/24/25 History mg-hydrochlorothiazide 25 mg tablet multivitamin (Daily Multi-Vitamin 1 tab PO DAILY 11/29/24 03/24/25 History tablet) prednisone 10 mg tablet 7.5 mg PO DAILY 11/29/24 03/24/25 History gabapentin 300 mg capsule 300 mg PO Q8H 02/08/25 03/24/25 History Allergies Allergy/AdvReac Type Severity Reaction Status Date / Time amoxicillin Allergy Mild Rash Verified 03/24/25 10:44 divalproex sodium (From Allergy Unknown hair loss Verified 03/24/25 10:44 Depakote) hydrocodone Allergy Unknown Rash Verified 03/24/25 10:44 phenytoin (From Dilantin) Allergy Unknown Rash Verified 03/24/25 10:44 alendronate sodium (From AdvReac eye pain Verified 03/24/25 10:44 Fosamax) Exam Narrative Exam Narrative: Constitutional: Awake, alert, comfortable, well-appearing, nontoxic, interactive, vital signs as charted Head: Normocephalic, atraumatic Eyes: Conjunctiva and lids normal to inspection, pupils normal ENT: Tympanic membranes pearly uribe, nonerythematous, noninjected, naris patent, posterior oropharynx clear, oral mucosa moist Neck: Supple, normal appearance, normal range of motion, no meningeal signs, no lymphadenopathy Respiratory: No respiratory distress, breath sounds clear Cardiovascular: Regular rate and rhythm, strong and heart tones with 3 out of 5 systolic murmur Abdomen: Nontender, normal bowel sounds, soft, no CVA tenderness Musculoskeletal: Normal gait, with mild swelling noted to her joints of fingers Skin: No rashes or induration, no lesions, only visible skin inspected Neuro: No neurological deficits, normal sensation Psychiatric: Oriented ?3, normal affect Assessment and Plan Assessment and Plan (1) Lumbar spinal stenosis: Plan Placement of lumbar spine cord stimulator implant on 04/04/[address] Weston
[2025-03-24 12:27] LABS: Anion Gap 13.0; Blood Urea Nitrogen 20.0 mg/dL (7.0-18.0); Calcium 9.2 mg/dL (8.5-10.1); Carbon Dioxide 28.7 mmol/L (21.0-32.0); Chloride 106 mmol/L (98-107); Estimated GFR (African America >60 (>=60 mL/min/1.73m^2); Estimated GFR (Non-African Ame >60 (>=60 mL/min/1.73m^2); Glucose 98 mg/dL (74-106); Potassium 3.7 mmol/L (3.5-5.1); Sodium 144 mmol/L (136-145)
== END 2025-03-24 10:25 | disposition home or self-care (01) ==
PROVIDERS: PCP Family Medicine; Visit Provider Anesthesiology
DX: Z01.812 Encounter for preprocedural laboratory examination (principal); Z01.818 Encounter for other preprocedural examination; M48.062 Spinal stenosis, lumbar region with neurogenic claudication
CPT/HCPCS: 80048; G0463

== ENCOUNTER 2025-03-28 23:22 | Emergency (ER) | payer MEDICARE, OTHER, SELFPAY ==
--- OUTSIDE RECORDS SUMMARY | 2025-03-28 23:43 | XMS_ITS | Encounter Summary ---
Author Organization [facility] Address [address] [place] [address] Phone Care Team Providers Care Patent Paralegal Name Role Phone Suhas Arizmendi DO Primary Care Provider [phone] Suhas Arizmendi DO Primary Care Provider [phone] Encounter Details Date Type Department Care Team (Late st Contact Info) Description 11/08/2019 Orders Only [facility] [address] [place] [address] Conversion, Onbase Social History Tobacco Use Types [...] Description 12/20/2025 10:45 AM EDT Appointment [address] [place] [phone] 01/26/2026 11:00 AM EDT Office Visit [address] [place] [phone] Michel Wolf MD [address] [facility] [address], [address] [place], [place] [phone] Scheduled Orders Name Type Priority Associated Diagnoses Orde r Schedule OUTSIDE LAB SCAN Lab Ordered: 11/08/2019 documented as of this encounter Visit Diagnoses Not on filedocumented in this encounter Care Teams Patent Paralegal Relationship Specialty Start Date End Date Suhas Arizmendi DO PCP - General 06/09/99 01/29/24 Suhas Arizmendi DO [facility] [place] [address] PCP - General Family Medicine 01/30/24 documented as of this encounter
--- OUTSIDE RECORDS SUMMARY | 2025-03-28 23:43 | XMS_ITS | Clinical Summary ---
Author Organization [facility] Address [address] [place] [address] Phone Care Team Providers Care Survey Research Manager Name Role Phone Suhas Arizmendi Dalton TYLER Primary Care Provider [phone] Allergies Active Allergy Reactions Criticality Noted Date [...] Description 01/14/2025 11:00 AM EDT Office Visit [address] [place] [phone] Michel Wolf MD Nonrheumatic aortic valve stenosis (Primary Dx); 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; Hyperlipidemia, unspecified hyperlipidemia type; PMR (polymyalgia rheumatica) ([facility]); Hypothyroidism, unspecified type; BMI 27.0-27.9,adult; Never smoked any substance; Overweight 01/14/2025 Travel from Last 3 Months Immunizations Immunization Administration [...] blue cap/uribe label *Check age/dose* 04/17/2022 Novel [id number], preservative-free 05/30/2009 Pneumococcal conjugate vacci ne, 13-valent [...] Info) Description 12/20/2025 10:45 AM EDT Appointment [facility] [address] [facility] [address] [place] [phone] 01/26/2026 11:00 AM EDT Office Visit [facility] [address] [facility] [address] [place] [address] Michel Wolf MD [address] [facility] [address], [address] [place] [address] Health Maintenance Due Date Last Done Comments [...] patient's age to complete this topic Insurance MEDICARE [employer] [facility] Care Teams Survey Research Manager Relationship Specialty Start Date End Date Suhas Arizmendi DO [facility] [place] [address] PCP - General Family Medicine 01/30/24
--- OUTSIDE RECORDS SUMMARY | 2025-03-28 23:43 | XMS_ITS | Encounter Summary ---
Author Organization [facility] Address [address] [place] [address] Phone Care Team Providers Care Administrative Support Assistant Name Role Phone Suhas Arizmendi Primary Care Provider [phone] Encounter Details Date Type Department Care Team (Late st Contact Info) Description 11/29/2024 Scanned Document [facility] [address] [place] [phone] Scanning, Generic Provider Social History Tobacco Use [...] Info) Description 12/20/2025 10:45 AM EDT Appointment [address] [place] [phone] 01/26/2026 11:00 AM EDT Office Visit [address] [place] [phone] Michel Wolf MD 703 [facility] [address], [address] [place] [address] documented as of this encounter Visit Diagnoses Not on filedocumented in this encounter Additional Health Concerns Assessment Noted Time A fall risk assessment has been complete d for the patient 06/19/2023 11:09 AM EST documented as of this encounter Care Teams Administrative Support Assistant Relationship Specialty Start Date End Date Suhas Arizmendi DO [address] [place] [id number] PCP - General Family Medicine 01/30/24 documented as of this encounter
--- OUTSIDE RECORDS SUMMARY | 2025-03-28 23:43 | XMS_ITS | Encounter Summary ---
Author Organization [facility] Address [address] [place] [address] Phone Care Team Providers Care Pharmacy Technologist Name Role Phone Suhas Arizmendi DO Primary Care Provider [phone] Suhas Arizmendi DO Primary Care Provider [phone] Encounter Details Date Type Department Care Team (Late st Contact Info) Description 12/18/2020 Orders Only [facility] [address] [place] [address] Conversion, Onbase Social History Tobacco Use Types [...] Info) Description 12/20/2025 10:45 AM EDT Appointment [address] [place] [phone] 01/26/2026 11:00 AM EDT Office Visit [address] [place] [address] Michel Wolf MD 703 [facility] [address], [address] [place] [address] Scheduled Orders Name Type Priority Associated Diagnoses Orde r Schedule OUTSIDE LAB SCAN Lab Ordered: 12/18/2020 OUTSIDE LAB SCAN Lab Ordered: 12/18/2020 documented as of this encounter Visit Diagnoses Not on filedocumented in this encounter Care Teams Pharmacy Technologist Relationship Specialty Start Date End Date Suhas Arizmendi DO PCP - General 06/09/99 01/29/24 Suhas Arizmendi DO [address] [place] [address] PCP - General Family Medicine 01/30/24 documented as of this encounter
--- OUTSIDE RECORDS SUMMARY | 2025-03-28 23:43 | XMS_ITS | Encounter Summary ---
Author Organization [facility] Address [address] [place] [phone] Phone Care Team Providers Care Crisis Nurse Name Role Phone Suhas Arizmendi DO Primary Care Provider [phone] Suhas Arizmendi DO Primary Care Provider [phone] Encounter Details Date Type Department Care Team (Late st Contact Info) Description 04/19/2019 Orders Only [facility] [address] [place] [address] Conversion, Onbase Social History Tobacco Use Types [...] Info) Description 12/20/2025 10:45 AM EDT Appointment [address] [place] [phone] 01/26/2026 11:00 AM EDT Office Visit [address] [place] [phone] Michel Wolf MD 703 [facility] [address], [address] [place], [place] [phone] Scheduled Orders Name Type Priority Associated Diagnoses Orde r Schedule OUTSIDE LAB SCAN Lab Ordered: 04/19/2019 documented as of this encounter Visit Diagnoses Not on filedocumented in this encounter Care Teams Crisis Nurse Relationship Specialty Start Date End Date Suhas Arizmendi DO PCP - General 06/09/99 01/29/24 Suhas Arizmendi DO [facility] [place] [address] PCP - General Family Medicine 01/30/24 documented as of this encounter
--- OUTSIDE RECORDS SUMMARY | 2025-03-28 23:43 | XMS_ITS | Clinical Summary ---
Author Organization [facility] Address [address] [place] [address] Care Team Providers Care Planer Chain Offbearer Name Role Phone Unavailable Primary Care Provider [...] of Treatment Not on file Insurance [place] [id number]
--- OUTSIDE RECORDS SUMMARY | 2025-03-28 23:43 | XMS_ITS | Encounter Summary ---
Author Organization [facility] Address [address] [place] [address] Phone Care Team Providers Care Steam Box Tender Name Role Phone Suhas Arizmendi DO Primary Care Provider [phone] Suhas Arizmendi DO Primary Care Provider [phone] Encounter Details Date Type Department Care Team (Late st Contact Info) Description 09/03/2023 Scanned Document [facility] [address] [place] [phone] Scanning, Generic Provider Social History Tobacco Use [...] Description 12/20/2025 10:45 AM EDT Appointment [address] [place] [phone] 01/26/2026 11:00 AM EDT Office Visit [address] [place] [phone] Michel Wolf MD 703 [facility] 2, [facility] [address] [place] [address] documented as of this encounter Visit Diagnoses Not on filedocumented in this encounter Additional Health Concerns Assessment Noted Time A fall risk assessment has been complete d for the patient 06/19/2023 11:09 AM EST documented as of this encounter Care Teams Steam Box Tender Relationship Specialty Start Date End Date Suhas Arizmendi DO PCP - General 06/09/99 01/29/24 Suhas Arizmendi DO [facility] [address] [place] [id number] PCP - General Family Medicine 01/30/24 documented as of this encounter
--- OUTSIDE RECORDS SUMMARY | 2025-03-28 23:43 | XMS_ITS | Clinical Summary ---
Author Organization [facility] Address [address] [place] [address] Care Team Providers Care Sand Mixer Operator Name Role Phone Suahs Arizmendi DO Unavailable Suhas Arizmendi DO Primary Care Provider [phone] Allergies Active Allergy Reactions Criticality Noted Date [...] once a day 0 03/29/2005 Active VIT [id number] ACID-MAG OX 100 UNIT-2.05 MG TAB Vit [...] (#1) 2025 Insurance MEDICARE [employer] Care Teams Sand Mixer Operator Relationship Specialty Start Date End Date Suhas Arizmendi DO [address] [place] [address] PCP - General Family Medicine 07/23/23 Suhas Arizmendi DO [address] [place] [address] Referring Family Medicine 07/23/23
--- OUTSIDE RECORDS SUMMARY | 2025-03-28 23:43 | XMS_ITS | Encounter Summary ---
Author Organization [facility] Address [address] [place] [address] Phone Care Team Providers Care Partnership Manager Name Role Phone Suhas Arizmendi DO Primary Care Provider [phone] Suhas Arizmendi DO Primary Care Provider [phone] Encounter Details Date Type Department Care Team (Late st Contact Info) Description 02/26/2023 Scanned Document [facility] [address] [place] [address] Conversion, Onbase Social History Tobacco Use Types [...] Info) Description 12/20/2025 10:45 AM EDT Appointment [place] [address] [facility] [address] [place] [address] 01/26/2026 11:00 AM EDT Office Visit [address] [place] [phone] Michel Wolf MD 703 [facility] 2, [address] [place], [place] [phone] documented as of this encounter Procedures Procedure Name Priority Date/Time Associated Diagnosis Comments ECHOCARDIOGRAM 02/26/2023 documented in this encounter Results * ECHOCARDIOGRAM (02/26/2023) Narrative 02/26/2023 Ordered by an unspecified provider. us Onbase Conversion CV ECHO PROCEDURES Final Resul t documented in this encounter Visit Diagnoses Not on filedocumented in this encounter Care Teams Partnership Manager Relationship Specialty Start Date End Date Suhas Arizmendi DO PCP - General 06/09/99 01/29/24 Suhas Arizmendi DO [address] [place] [address] PCP - General Family Medicine 01/30/24 documented as of this encounter
--- OUTSIDE RECORDS SUMMARY | 2025-03-28 23:44 | XMS_ITS | CCD ---
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 Name Role Phone Suhas Garrett Unavailable [...] Provider Suhas Garrett DO Primary Care Provider [phone] Suhas Garrett Primary Care Unavailable Suhas Garrett Admitting Unavailable Suhas Garrett Attending Unavailable KunSuhas arellano Attending Unavailable Suhas Garrett Primary Care Unavailable KunsSuhas Admitting Unavailable KunSuhas arellano Attending Unavailable Suhas Garrett Primary Care Unavailable KunsSuhas Admitting Unavailable KunsSuhas Attending Unavailable Suhas Garrett Primary Care Unavailable GaelsSuhas Admitting Unavailable Kuns Suhas TYLER Primary Care Provider [phone] SHY WOLF Referring Unavailable SUHAS GARRETT Primary [...] Translations: [Fosamax] Drug Allergy 3 Unknown, Other [facility] Repository (20 sources) Amoxicillin; Translations: [amoxicillin] Drug Allergy 9 hives [facility] [employer] Other (20 sources) Phenytoin; Translations: [Dilantin CAPS] Drug Allergy 3 Rash [facility] [employer] Other (20 sources) Valproate; Translations: [Depakote ER TB24] Drug Allergy Unknown [facility] [employer] Other (1 source) Alendronate Drug Allergy [facility] Repository (1 source) Amoxicillin Drug Allergy [facility] Repository (1 source) Phenytoin Drug Allergy [facility] Repository (1 source) Valproate Drug Allergy [facility] Repository (20 sources) Acetaminophen / HYDROcodone Drug Allergy elevated liver enzymes [facility] [employer] Other (6 sources) Alendronate Drug Allergy 3 Unknown, Other [facility] (8 sources) HYDROcodone; Translations: [HYDROCODONE] Drug Allergy 4 GI Upset [facility] Work Phone: (8 sources) Valproate; Translations: [VALPROIC ACID] Drug Allergy 3 Unknown [facility] Work Phone: (1 source) Acetaminophen Drug Allergy 4 [facility] Repository (1 source) Alendronate Drug Allergy 4 [facility] Repository (1 source) Amoxicillin Drug Allergy 4 [facility] Repository (1 source) HYDROcodone Drug Allergy 4 [facility] Repository (1 source) Phenytoin Drug Allergy 4 [facility] Repository (1 source) Valproate Drug Allergy 4 [facility] Repository (5 sources) Valproate; Translations: [DIVALPROEX] Drug Allergy [address] [facility] Work Phone: Medications Current Medications Medication [...] Active Start: 01-09-2022 take 1 tablet by brab th three times daily at mealtime as [...] tablet by mouth once daily. 0 Active [place] 3 1000 MG (20 sources) take 1 capsule by mouth once daily [place] 3 1000 MG 1 capsule with a meal Orally Once a day Active predniSONE 10 mg oral tablet (20 sources) Start: 12-09-2024 take 1 tablet by mouth once daily predniSONE (Deltasone) 10 mg tablet Take 1 tablet (10 mg) by mouth once daily. 12/09/2024 Active Start: 07-05-2023 take 2 tablets by mo [facility] once daily predniSONE 10 MG 2 tablets [...] take 1 capsule by mouth once daily [place]-3 Fish Oil 1000 MG Oral Capsule TAKE [...] 0 Refills: 0 Ordered: 13-Dec-2021 DO Active [place] 3 500 CAPS (4 sources) [place] 3 500 CAPS TAKE 1 CAPSULE Daily [...] Coronary arteriosclerosis; 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 [place] coronary artery without angina pectoris] Onset: 09-03-2023 [...] fracture] Chronic Other aftercare (1 source) Other residential (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; Translations: [[facility]IOR LIVING CURRENT DRUG THERAPY] Onset: 02-22-2022 Episodic Other [...] Interpretation Reference Range Facility TRANSTHORACIC ECHO (TTE) [facility] 12-21-2024 TRANSTHORACIC ECHO (TTE) COMPLETE [address], [address] [place] [address] TRANSTHORACIC ECHOCARDIOGRAM REPORT Patient Name: LAVONNE Bahena Physician: [id number] Shy Wolf MD, [facility] Study Date: 12/21/2024 Ordering Provider: [id number] SHY WOLF MRN/PID: [id number] Fellow: Nurse: Date of /Age: 3 1935 / 89 years Eradicator: Sheridan Lemus RD, T Gender Assigned at F Additional Staff: : Height: 157.48 cm Admit Date: Weight: 65.77 kg Admission Status: Outpatient BSA / BMI: 1.67 m2 / 26.52 Department Location: [facility]/m2 Samuel Blood Pressure: 146 /68 mmHg Study Type: TRANSTHORACIC ECHO (TTE) COMPLETE Diagnosis/ICD: Nonrheumatic aortic (valve) stenosis-I35.0 Indication: HTN, Hyperlipidemia, 2/6 Systolic Murmur, Hypothyroid CPT Codes: Echo Complete w Full Doppler-52861 Study Detail: The following Echo studies were [...] 0.85 cm (more content not included)... Normal [facility] US Heart Transthoracicon Aortic Valve Area by Continuity of Peak Velocity 0.85 cm2 [facility] Work Phone: Aortic Valve Area by Continuity of VTI 0.9 cm2 [facility] Work Phone: AV mn grad 23 mmHg [facility] Work Phone: AV pk grad 43 mmHg [facility] Work Phone: AV pk haseeb 3.27 m/s [facility] Work Phone: LA vol index A/L 43.4 ml/m2 [facility] Work Phone: LV A4C EF 76.9 [facility] Work Phone: LV Biplane EF 71 % [facility] Work Phone: LV EF 68 % [facility] Work Phone: LVIDd 4.03 cm [facility] Work Phone: LVOT diam 1.89 cm [facility] Work Phone: MV avg E/e' ratio 15.93 [facility] Work Phone: MV E/A ratio 1 [facility] Work Phone: RV free wall pk S' 11.98 cm/s [facility] Work Phone: RVSP 34 mmHg [facility] Work Phone: Tricuspid annular plane systolic excursion 2.4 cm [facility] Work Phone: [address], [place] [address] TRANSTHORACIC ECHOCARDIOGRAM REPORT Patient Name: LAVONNE VILLATORO Reading Physician: [id number] Shy Wolf MD, [facility] Study Date: 12/21/2024 Ordering Provider: [id number] SHY WOLF MRN/PID: [id number] Fellow: Nurse: Date of /Age: 3 1935 / 89 years Eradicator: Sheridan Lemus RDCS Ash[place] Gender Assigned at F Additional Staff: : Height: 157.48 cm Admit Date: Weight: 65.77 kg Admission Status: Outpatient BSA / BMI: 1.67 m2 / 26.52 Department Location: [facility] Heart kg/m2 [place] Blood Pressure: 146 /68 mmHg Study Type: TRANSTHORACIC ECHO (TTE) COMPLETE Diagnosis/ICD: Nonrheumatic aortic (valve) stenosis-I35.0 Indication: HTN, Hyperlipidemia, 2/6 Systolic Murmur, Hypothyroid CPT Codes: Echo Complete w Full Doppler-[id number] Study Detail: The following Echo studies were [...] included)... Shy Winn M D - 12/21/[address], [address] [place] [address] TRANSTHORACIC ECHOCARDIOGRAM REPORT Patient Name: LAVONNE VILLATORO Shruti Physician: [id number] Wolf MD, [facility] Study Date: 12/21/2024 Ordering Provider: [id number] SHY WOLF MRN/PID: [id number] Fellow: Nurse: Date of /Age: 3 1935 / 89 years Eradicator: Sheridan Lemus RDCS, RVT Gender Assigned at F Additional Staff: : Height: 157.48 cm Admit Date: Weight: 65.77 kg Admission Status: Outpatient BSA / BMI: 1.67 m2 / 26.52 Department Location: [address] Blood Pressure: 146 /68 mmHg Study Type: TRANSTHORACIC ECHO (TTE) COMPLETE Diagnosis/ICD: Nonrheumatic aortic (valve) stenosis-I35.0 Indication: HTN, Hyperlipidemia, 2/6 Systolic Murmur, Hypothyroid CPT Codes: Echo Complete w Full Doppler-[id number] Study Detail: The following Echo studies were [...] (18-25cm) LVOT VTI: (more content not included)... [facility] Work Phone: [facility] Work Phone: Complete Blood Count Auto Di ffon 07-28-2024 Basophils (Bld) [#/Vol] 0.1 10*3/uL Normal 0.0-0.2 [facility] Comment on above: Performed By: #### V [id number], CMP, TSH3, LIPID, CBC, T4F, ESR #### [address] Basophils/100 WBC (Bld) 1.1 % Normal . [facility] Comment on above: Performed By: #### V [id number], CMP, TSH3, LIPID, CBC, T4F, ESR #### [address] Eosinophils (Bld) [#/Vol] 0.1 10*3/uL Normal 0.0-0.45 [facility] Comment on above: Performed By: #### V [id number], CMP, TSH3, LIPID, CBC, T4F, ESR #### [facility] [address] Eosinophils/100 WBC (Bld) 2.2 % Normal . [facility] Comment on above: Performed By: #### V [id number], CMP, TSH3, LIPID, CBC, T4F, ESR #### [address] Erythrocyte distribution width (RBC) [Ratio] 13.5 % Normal 11.9-15.3 [facility] Comment on above: Performed By: #### V [id number], CMP, TSH3, LIPID, CBC, T4F, ESR #### [address] Hematocrit (Bld) [Volume fraction] 37.9 % Normal 34.0-46.4 [facility] Comment on above: Performed By: #### V [id number], CMP, TSH3, LIPID, CBC, T4F, ESR #### [address] Hemoglobin (Bld) [Mass/Vol] 12.9 g/dL Normal 11.8-15.4 [facility] Comment on above: Performed By: #### V [id number], CMP, TSH3, LIPID, CBC, T4F, ESR #### [address] Lymphocytes (Bld) [#/Vol] 2.2 10*3/uL Normal 1.00-4.8 [facility] Comment on above: Performed By: #### V [id number], CMP, TSH3, LIPID, CBC, T4F, ESR #### [address] Lymphocytes/100 WBC (Bld) 34.3 % Normal . [facility] Comment on above: Performed By: #### V [id number], CMP, TSH3, LIPID, CBC, T4F, ESR #### [address] MCH (RBC) [Entitic mass] 33.5 pg Normal 24.7-34.3 [facility] Comment on above: Performed By: #### V [id number], CMP, TSH3, LIPID, CBC, T4F, ESR #### [address] MCV (RBC) [Entitic vol] 98.4 fL Normal 80-100 [facility] Comment on above: Performed By: #### V [id number], CMP, TSH3, LIPID, CBC, T4F, ESR #### [address] Mean Corpuscular HGB Conc 34.1 g/dL Normal 32.0-35.0 [facility] Comment on above: Performed By: #### V [id number], CMP, TSH3, LIPID, CBC, T4F, ESR #### [address] Monocytes (Bld) [#/Vol] 0.6 10*3/uL Normal 0.0-0.8 [facility] Comment on above: Performed By: #### V [id number], CMP, TSH3, LIPID, CBC, T4F, ESR #### [address] Monocytes/100 WBC (Bld) 9.8 % Normal . [facility] Comment on above: Performed By: #### V [id number], CMP, TSH3, LIPID, CBC, T4F, ESR #### [address] Neutrophils (Bld) [#/Vol] 3.4 10*3/uL Normal 1.8-7.7 [facility] Comment on above: Performed By: #### V [id number], CMP, TSH3, LIPID, CBC, T4F, ESR #### [address] Neutrophils/100 WBC (Bld) 52.6 % Normal . [facility] Comment on above: Performed By: #### V [id number], CMP, TSH3, LIPID, CBC, T4F, ESR #### [address] NRBC% 0.3 /100{WBC} Normal 0-0.5 [facility] Comment on above: Performed By: #### V [id number], CMP, TSH3, LIPID, CBC, T4F, ESR #### [address] Platelet mean volume (Bld) [Entitic vol] 9.3 fL Normal 6.3-10.7 [facility] Comment on above: Performed By: #### V [id number], CMP, TSH3, LIPID, CBC, T4F, ESR #### [facility] [address] Platelets (Bld) [#/Vol] 208 10*3/uL Normal 150-450 [facility] Comment on above: Performed By: #### V [id number], CMP, TSH3, LIPID, CBC, T4F, ESR #### [address] RBC (Bld) [#/Vol] 3.85 10*6/uL Normal 3.60-5.00 [facility] Comment on above: Performed By: #### V [id number], CMP, TSH3, LIPID, CBC, T4F, ESR #### [address] WBC (Bld) [#/Vol] 6.6 10*3/uL Normal 3.8-11.6 [facility] Comment on above: Performed By: #### V [id number], CMP, TSH3, LIPID, CBC, T4F, ESR #### [address] Comprehensive Metabolic Pane nory 07-28-2024 Albumin [Mass/Vol] 3.7 g/dL Normal 3.5-5.7 [facility] Comment on above: Performed By: #### V [id number], CMP, TSH3, LIPID, CBC, T4F, ESR #### [address] Albumin/Globulin [Mass ratio] 1.9 {ratio} Normal [facility] Comment on above: Performed By: #### V [id number], CMP, TSH3, LIPID, CBC, T4F, ESR #### [address] ALP [Catalytic activity/Vol] 62 U/L Normal 34-104 [facility] Comment on above: Performed By: #### V [id number], CMP, TSH3, LIPID, CBC, T4F, ESR #### [address] ALT [Catalytic activity/Vol] 21 U/L Normal 7-52 [facility] Comment on above: Performed By: #### V [id number], CMP, TSH3, LIPID, CBC, T4F, ESR #### [address] Anion gap [Moles/Vol] 8.2 mmol/L Normal 6.0-15.0 [facility] Comment on above: Performed By: #### V [id number], CMP, TSH3, LIPID, CBC, T4F, ESR #### [address] AST [Catalytic activity/Vol] 19 U/L Normal 13-39 [facility] Comment on above: Performed By: #### V [id number], CMP, TSH3, LIPID, CBC, T4F, ESR #### [address] Bilirubin [Mass/Vol] 0.7 mg/dL Normal 0.3-1.0 [facility] Comment on above: Performed By: #### V [id number], CMP, TSH3, LIPID, CBC, T4F, ESR #### [address] Calcium [Mass/Vol] 9.7 mg/dL Normal 8.6-10.3 [facility] Comment on above: Performed By: #### V [id number], CMP, TSH3, LIPID, CBC, T4F, ESR #### [address] Chloride [Moles/Vol] 107 mmol/L Normal 98-107 [facility] Comment on above: Performed By: #### V [id number], CMP, TSH3, LIPID, CBC, T4F, ESR #### [address] CO2 [Moles/Vol] 31.5 mmol/L High 21.0-31.0 [facility] Comment on above: Performed By: #### V [id number], CMP, TSH3, LIPID, CBC, T4F, ESR #### [place] [address] [place] Creatinine [Mass/Vol] 0.67 mg/dL Normal 0.60-1.20 [facility] Comment on above: Performed By: #### V [id number], CMP, TSH3, LIPID, CBC, T4F, ESR #### [facility] [address] GFR/1.73 sq M.predicted MDRD (S/P/Bld) [Vol rate/Area] mL/min/{1.73_m2} Normal [facility] Comment on above: Performed By: #### V [id number], CMP, TSH3, LIPID, CBC, T4F, ESR #### [facility] [address] Globulin (S) [Mass/Vol] 1.9 g/dL Normal [facility] Comment on above: Performed By: #### V [id number], CMP, TSH3, LIPID, CBC, T4F, ESR #### [address] Glucose [Mass/Vol] 89 mg/dL Normal 70-100 [facility] Comment on above: Result Comment: [facility] Glucose Reference Range is dependent on time and content of last meal. Glucose of more than 200 mg/dL in a nonstressed, ambulatory subject supports the diagnosis of Diabetes Mellitus. ADA recommended reference range Performed By: #### V [id number], CMP, TSH3, LIPID, CBC, T4F, ESR #### [address] Potassium [Moles/Vol] 3.7 mmol/L Normal 3.5-5.1 [facility] Comment on above: Performed By: #### V [id number], CMP, TSH3, LIPID, CBC, T4F, ESR #### [facility] [address] Protein [Mass/Vol] 5.6 g/dL Low 6.4-8.9 [facility] Comment on above: Performed By: #### V [id number], CMP, TSH3, LIPID, CBC, T4F, ESR #### [place] [address] Sodium [Moles/Vol] 143 mmol/L Normal 136-145 [facility] Comment on above: Performed By: #### V [id number], CMP, TSH3, LIPID, CBC, T4F, ESR #### [address] Urea nitrogen [Mass/Vol] 19 mg/dL Normal 7-25 [facility] Comment on above: Performed By: #### V [id number], CMP, TSH3, LIPID, CBC, T4F, ESR #### [address] Erythrocyte Sedimentation Ra amy 07-28-2024 ESR (Bld) [Velocity] 9 mm/h Normal 0-29 [facility] Comment on above: Result Comment: PERF ORMED BY: [place] [id number] PATHOLOGIST [employer] JASIEL HURTADO M.D. Performed By: #### V [id number], CMP, TSH3, LIPID, CBC, T4F, ESR #### [address] Free T4 (Free Thyroxine)on 0 07-28-2024 Free T4 [Mass/Vol] 0.74 ng/dL Normal 0.61-1.12 [facility] Comment on above: Performed By: #### L IPID, TSH3, CMP, CBC #### [address] Lipid Panelon 07-28-2024 Cholesterol [Mass/Vol] 228 mg/dL High 140-200 [facility] Comment on above: Result Comment: Chol less than 200 mg/dl low risk Chol 201-239 mg/dl borderline risk Chol 240 mg/dl and greater high risk Performed By: #### V [id number], CMP, TSH3, LIPID, CBC, T4F, ESR #### [address] Cholesterol in HDL [Mass/Vol] 96 mg/dL High 23-92 [facility] Comment on above: Result Comment: HDL CHOL ATP-III CLASSIFICATION Cardiovascular Risk HDL > or equal to 60 mg/dL LOW HDL < 40 mg/dL HIGH Performed By: #### V [id number], CMP, TSH3, LIPID, CBC, T4F, ESR #### [facility] [address] [place] [address] [facility] Cholesterol.total/Ch olesterol in HDL [Mass ratio] 2.4 {ratio} Normal <5.0 [facility] Comment on above: Performed By: #### V [id number], CMP, TSH3, LIPID, CBC, T4F, ESR #### [facility] [address] [place] [address] [facility] LDL Cholesterol,Calculat ed 121 mg/dL High 0-100 [facility] Comment on above: Result Comment: LDL ATP III CLASSIFICATION LDL less than 100 mg/dL Optimal LDL 100-129 mg/dL Near or above optimal LDL 130-159 mg/dL Borderline high LDL 160-189 mg/dL High LDL greater than 189 mg/dL Very high Performed By: #### V [id number], CMP, TSH3, LIPID, CBC, T4F, ESR #### [facility] [address] [place] [address] [facility] Triglyceride w/Reflex 57 mg/dL Normal 0-149 [facility] Comment on above: Result Comment: TRIG ATP III CLASSIFICATION TRIG less than 150 mg/dL Normal TRIG 150-199 mg/dL Borderline high TRIG 200-500 mg/dL High TRIG greater than 500 mg/dL Very high Standard traceable to the Center for Disease Conrtrol and Prevention (CDC) test method. Performed By: #### V [id number], CMP, TSH3, LIPID, CBC, T4F, ESR #### [facility] [address] [place] [address] [facility] VLDL CHOLESTEROL 11 mg/dL Normal [facility] Comment on above: Performed By: #### V [id number], CMP, TSH3, LIPID, CBC, T4F, ESR #### [facility] [address] [place] [address] [facility] Thyroid Stimulating Hormoneo n 07-28-2024 TSH Qn 6.38 m[IU]/L High 0.45-5.33 [facility] Comment on above: Performed By: #### L IPID, TSH3, CMP, CBC #### [address] Vitamin D 25 Hydroxy Totalon 07-28-2024 Vitamin D 25 Hydroxy Total 28.4 ng/mL Low 30-100 [facility] Comment on above: Result Comment: ANJU MIN D STATUS 25(OH)VITAMIN D RANGE (ng/mL) Deficient <20 Insufficient 20 to <30 Sufficient 30 to 100 Reference: Yolanda MF,Nathan NC, Keshawn FRANCO, et al. Evaluation,treatment, and prevention of vitamin D deficiency; an Endocrine Society clinical practice guideline. JCEM. 2010; 96(7):1911-30. PERFORMED BY: [place] [address] PATHOLOGIST [employer] JASIEL HURTADO M.D. Performed By: #### L IPID, TSH3, CMP, CBC #### [address] XR scapula LT*on 05-25-2024 XR scapula LT* [facility] [place] [address] [place] [address] XRay Report Signed Patient: Lavonne Villatoro MR#: [id number] : 1935 Acct:[id number] Age/Sex: 88 / F ADM Date: 05/25/24 Loc: XD Room: Type: [facility] Attending Dr: Suhas Garrett DO Copies to: Suhas Garrett DO Ordering Provider: Suhas Garrett DO Date of Service: 05/25/24 XR/XR shoulder LT min 2V*: M25.519 - Pain in unspecified shoulder ([id number]) XR/XR scapula LT*: M25.519 - Pain in [...] M.D.05/25/2024 4:45 PM Dictation Location: [place] [address] Transcribed By: [facility] 05/25/241644 Dictated By: Casandra Gómez MD 05/25/241641 Signed By: 05/25/241644 Normal [facility] TRANSTHORACIC ECHO (TTE) [facility] 02-11-2024 TRANSTHORACIC ECHO (TTE) COMPLETE [address], [address] [place] [address] TRANSTHORACIC ECHOCARDIOGRAM REPORT Patient Name: LAVONNE VILLATORO Reading Physician: [id number] Shy Wolf MD, [facility] Study Date: 02/11/2024 Ordering Provider: [id number] SHY WOLF MRN/PID: [id number] Fellow: Nurse: Date of /Age: 3 1935 / 88 years Eradicator: LILIA Gender: F Additional Staff: Height: 157.48 cm Admit Date: Weight: 69.40 kg Admission Status: BSA / BMI: 1.71 m2 / 27.98 kg/m2 Department Location: [facility] Blood Pressure: 116 /76 mmHg Study Type: TRANSTHORACIC ECHO (TTE) COMPLETE Diagnosis/ICD: Nonrheumatic aortic (valve) stenosis-I35.0 Indication: HTN, Hyperlipidemia, 3/6 Systolic Murmur, Hypothryoid, Overweight CPT Codes: Echo Complete w Full Doppler-[id number] Study Detail: The following Echo studies were [...] mmHg PIEDV: 2.23 m/s PADP: 22.9 mmHg [id number] Shy Wolf MD, FACC Electronical (more content not included)... [facility] US carotid doppler BIon 05-0 US carotid doppler BI [facility] [place] [address] [place] [address] Ultrasound Report Signed Patient: Lavonne Villatoro MR#: [id number] : 1935 Acct:[id number] Age/Sex: 88 / F ADM Date: 10/14/23 Loc: Room: Type: [facility] Attending Dr: Suhas Garrett DO Ordering [...] Dictation Location: [facility] Tech: Jackie Aguillon Transcribed By: KIRILL 10/15/23 1147 Dictated By: Hola Wynn MD 10/15/23 1145 Signed By: 10/15/23 1147 Normal [facility] Complete Blood Count Auto Di ffon 09-03-2023 Basophils (Bld) [#/Vol] 0.0 10*3/uL Normal 0.0-0.2 [facility] Comment on above: Result Comment: PERF ORMED BY: [place] [address] PATHOLOGIST [employer] JODY SOLANO M.D. Performed By: #### L IPID, TSH3, CMP, CBC #### [address] Basophils/100 WBC (Bld) 0.7 % Normal . [facility] Comment on above: Performed By: #### L IPID, TSH3, CMP, CBC #### [address] Eosinophils (Bld) [#/Vol] 0.1 10*3/uL Normal 0.0-0.45 [facility] Comment on above: Performed By: #### L IPID, TSH3, CMP, CBC #### [address] Eosinophils/100 WBC (Bld) 1.6 % Normal . [facility] Comment on above: Performed By: #### L IPID, TSH3, CMP, CBC #### [address] Erythrocyte distribution width (RBC) [Ratio] 14.8 % Normal 11.9-15.3 [facility] Comment on above: Performed By: #### L IPID, TSH3, CMP, CBC #### [address] Hematocrit (Bld) [Volume fraction] 39.9 % Normal 34.0-46.4 [facility] Comment on above: Performed By: #### L IPID, TSH3, CMP, CBC #### [address] Hemoglobin (Bld) [Mass/Vol] 13.2 g/dL Normal 11.8-15.4 [facility] Comment on above: Performed By: #### L IPID, TSH3, CMP, CBC #### [address] Lymphocytes (Bld) [#/Vol] 2.6 10*3/uL Normal 1.00-4.8 [facility] Comment on above: Performed By: #### L IPID, TSH3, CMP, CBC #### [address] Lymphocytes/100 WBC (Bld) 43.5 % Normal . [facility] Comment on above: Performed By: #### L IPID, TSH3, CMP, CBC #### [address] MCH (RBC) [Entitic mass] 33.2 pg Normal 24.7-34.3 [facility] Comment on above: Performed By: #### L IPID, TSH3, CMP, CBC #### [address] MCV (RBC) [Entitic vol] 100.5 fL High 80-100 [facility] Comment on above: Performed By: #### L IPID, TSH3, CMP, CBC #### [address] Mean Corpuscular HGB Conc 33.0 g/dL Normal 32.0-35.0 [facility] Comment on above: Performed By: #### L IPID, TSH3, CMP, CBC #### [place] [address] [place] Monocytes (Bld) [#/Vol] 0.6 10*3/uL Normal 0.0-0.8 [facility] Comment on above: Performed By: #### L IPID, TSH3, CMP, CBC #### [address] Monocytes/100 WBC (Bld) 9.7 % Normal . [facility] Comment on above: Performed By: #### L IPID, TSH3, CMP, CBC #### [address] Neutrophils (Bld) [#/Vol] 2.7 10*3/uL Normal 1.8-7.7 [facility] Comment on above: Performed By: #### L IPID, TSH3, CMP, CBC #### [address] Neutrophils/100 WBC (Bld) 44.5 % Normal . [facility] Comment on above: Performed By: #### L IPID, TSH3, CMP, CBC #### [address] NRBC% 0.2 /100{WBC} Normal 0-0.5 The [facility] Comment on above: Performed By: #### L IPID, TSH3, CMP, CBC #### [place] [address] [place] Platelet mean volume (Bld) [Entitic vol] 9.2 fL Normal 6.3-10.7 The [facility] Comment on above: Performed By: #### L IPID, TSH3, CMP, CBC #### [place] [address] [place] Platelets (Bld) [#/Vol] 229 10*3/uL Normal 150-450 [facility] Comment on above: Performed By: #### L IPID, TSH3, CMP, CBC #### [address] RBC (Bld) [#/Vol] 3.98 10*6/uL Normal 3.60-5.00 The [facility] Comment on above: Performed By: #### L IPID, TSH3, CMP, CBC #### [address] WBC (Bld) [#/Vol] 6.0 10*3/uL Normal 3.8-11.6 The [facility] Comment on above: Performed By: #### L IPID, TSH3, CMP, CBC #### [address] Comprehensive Metabolic Pane nory 09-03-2023 Albumin [Mass/Vol] 3.8 g/dL Normal 3.5-5.7 The [facility] Comment on above: Performed By: #### L IPID, TSH3, CMP, CBC #### [address] Albumin/Globulin [Mass ratio] 1.7 {ratio} Normal [facility] Comment on above: Performed By: #### L IPID, TSH3, CMP, CBC #### [address] ALP [Catalytic activity/Vol] 72 U/L Normal 34-104 [facility] Comment on above: Performed By: #### L IPID, TSH3, CMP, CBC #### [address] ALT [Catalytic activity/Vol] 43 U/L Normal 7-52 [facility] Comment on above: Performed By: #### L IPID, TSH3, CMP, CBC #### [address] Anion gap [Moles/Vol] 8.9 mmol/L Normal 6.0-15.0 [facility] Comment on above: Performed By: #### L IPID, TSH3, CMP, CBC #### [address] AST [Catalytic activity/Vol] 23 U/L Normal 13-39 [facility] Comment on above: Performed By: #### L IPID, TSH3, CMP, CBC #### [address] Bilirubin [Mass/Vol] 1.2 mg/dL High 0.3-1.0 [facility] Comment on above: Performed By: #### L IPID, TSH3, CMP, CBC #### [address] Calcium [Mass/Vol] 9.5 mg/dL Normal 8.6-10.3 The [facility] Comment on above: Performed By: #### L IPID, TSH3, CMP, CBC #### [address] Chloride [Moles/Vol] 107 mmol/L Normal 98-107 [facility] Comment on above: Performed By: #### L IPID, TSH3, CMP, CBC #### [address] CO2 [Moles/Vol] 30.0 mmol/L Normal 21.0-31.0 The [facility] Comment on above: Performed By: #### L IPID, TSH3, CMP, CBC #### [address] Creatinine [Mass/Vol] 0.76 mg/dL Normal 0.60-1.20 [facility] Comment on above: Performed By: #### L IPID, TSH3, CMP, CBC #### [place] [address] [place] GFR/1.73 sq M.predicted MDRD (S/P/Bld) [Vol rate/Area] mL/min/{1.73_m2} Normal [facility] Comment on above: Performed By: #### L IPID, TSH3, CMP, CBC #### [place] [address] [place] Globulin (S) [Mass/Vol] 2.2 g/dL Normal [facility] Comment on above: Performed By: #### L IPID, TSH3, CMP, CBC #### [facility] [address] Glucose [Mass/Vol] 79 mg/dL Normal 70-100 The [facility] Comment on above: Result Comment: [place] Glucose Reference Range is dependent on time and content of last meal. Glucose of more than 200 mg/dL in a nonstressed, ambulatory subject supports the diagnosis of Diabetes Mellitus. ADA recommended reference range Performed By: #### L IPID, TSH3, CMP, CBC #### [facility] [address] Potassium [Moles/Vol] 3.9 mmol/L Normal 3.5-5.1 [facility] Comment on above: Performed By: #### L IPID, TSH3, CMP, CBC #### [address] Protein [Mass/Vol] 6.0 g/dL Low 6.4-8.9 The [facility] Comment on above: Performed By: #### L IPID, TSH3, CMP, CBC #### [place] [address] [place] Sodium [Moles/Vol] 142 mmol/L Normal 136-145 The [facility] Comment on above: Performed By: #### L IPID, TSH3, CMP, CBC #### [place] [address] [place] Urea nitrogen [Mass/Vol] 22 mg/dL Normal 7-25 [facility] Comment on above: Performed By: #### L IPID, TSH3, CMP, CBC #### [facility] [address] Lipid Panelon 09-03-2023 Cholesterol [Mass/Vol] 243 mg/dL High 140-200 [facility] Comment on above: Result Comment: Chol less than 200 mg/dl low risk Chol 201-239 mg/dl borderline risk Chol 240 mg/dl and greater high risk Performed By: #### L IPID, TSH3, CMP, CBC #### [facility] [address] Cholesterol in HDL [Mass/Vol] 98 mg/dL High 23-92 [facility] Comment on above: Result Comment: HDL CHOL ATP-III CLASSIFICATION Cardiovascular Risk HDL > or equal to 60 mg/dL LOW HDL < 40 mg/dL HIGH Performed By: #### L IPID, TSH3, CMP, CBC #### [facility] [address] Cholesterol.total/Ch olesterol in HDL [Mass ratio] 2.5 {ratio} Normal <5.0 [facility] Comment on above: Performed By: #### L IPID, TSH3, CMP, CBC #### [facility] [address] LDL Cholesterol,Calculat ed 121 mg/dL High 0-100 [facility] Comment on above: Result Comment: LDL ATP III CLASSIFICATION LDL less than 100 mg/dL Optimal LDL 100-129 mg/dL Near or above optimal LDL 130-159 mg/dL Borderline high LDL 160-189 mg/dL High LDL greater than 189 mg/dL Very high Performed By: #### L IPID, TSH3, CMP, CBC #### [address] Triglyceride w/Reflex 122 mg/dL Normal 0-149 [facility] Comment on above: Result Comment: TRIG ATP III CLASSIFICATION TRIG less than 150 mg/dL Normal TRIG 150-199 mg/dL Borderline high TRIG 200-500 mg/dL High TRIG greater than 500 mg/dL Very high Standard traceable to the Center for Disease Conrtrol and Prevention (CDC) test method. Performed By: #### L IPID, TSH3, CMP, CBC #### [facility] [address] VLDL CHOLESTEROL 24 mg/dL Normal The [facility] Comment on above: Performed By: #### L IPID, TSH3, CMP, CBC #### [facility] [address] [place] [id number] [facility] Thyroid Stimulating Hormoneo n 09-03-2023 TSH Qn 4.01 m[IU]/L Normal 0.45-5.33 The [facility] Comment on above: Result Comment: PERF ORMED BY: [facility] [address] [place] [address] PATHOLOGIST [employer] JODY SOLANO M.D. Performed By: #### L IPID, TSH3, CMP, CBC #### [facility] [address] Complete Blood Count Auto Di ffon 07-08-2023 Basophils (Bld) [#/Vol] 0.941243161 10*3/uL Normal 0.0-0.2 10*3/uL [employer] Other Basophils/100 WBC (Bld) 0.900 % . % [employer] Other Eosinophils (Bld) [#/Vol] 0.961276248 10*3/uL Normal 0.0-0.45 10*3/uL [employer] Other Eosinophils/100 WBC (Bld) 1.100 % . % [employer] Other Erythrocyte distribution width (RBC) [Ratio] 14.000 % Normal 11.9-15.3 % [employer] Other Hematocrit (Bld) [Volume fraction] 37.700 % Normal 34.0-46.4 % [employer] Other Hemoglobin (Bld) [Mass/Vol] 12.348442 g/dL Normal 11.8-15.4 g/dL [employer] Other Lymphocytes (Bld) [#/Vol] 2.132848163 10*3/uL Normal 1.00-4.8 10*3/uL [employer] Other Lymphocytes/100 WBC (Bld) 35.100 % . % [employer] Other MCH (RBC) [Entitic mass] 33.3000 pg Normal 24.7-34.3 pg [employer] Other MCV (RBC) [Entitic vol] 99.7000 fL Normal 80-100 fL [employer] Other Monocytes (Bld) [#/Vol] 0.790544311 10*3/uL Normal 0.0-0.8 10*3/uL [employer] Other Monocytes/100 WBC (Bld) 10.000 % . % [employer] Other Neutrophils (Bld) [#/Vol] 3.832158451 10*3/uL Normal 1.8-7.7 10*3/uL [employer] Other Neutrophils/100 WBC (Bld) 52.900 % . % [employer] Other Platelet mean volume (Bld) [Entitic vol] 9.9000 fL Normal 6.3-10.7 fL [employer] Other Platelets (Bld) [#/Vol] 224 10*3/uL Normal 150-450 10*3/uL [employer] Other RBC (Bld) [#/Vol] 3.78 10*6/uL Normal 3.60-5.00 [employer] Other WBC (Bld) [#/Vol] 7.581380269 10*3/uL Normal 3.8 -11.6 10*3/uL [employer] Other Complete Blood Count Auto Diff 7.1 10*3/uL Normal 3.8-11.6 10*3/uL [employer] Other Complete Blood Count Auto Diff 33.4 g/dL Normal 32.0-35.0 g/dL [employer] Other Complete Blood Count Auto Diff 0.1 /100{WBC} Normal 0-0.5 /100{WBC} [employer] Other Comprehensive Metabolic Pane nory 07-08-2023 Albumin [Mass/Vol] 3.201088 g/dL Normal 3.5-5.7 g/dL N [employer] Other Albumin/Globulin [Mass ratio] 1.7 {ratio} [employer] Other ALP [Catalytic activity/Vol] 140 U/L High 34-104 U/L [employer] Other ALT [Catalytic activity/Vol] 71 U/L High 7-52 U/L [employer] Other AST [Catalytic activity/Vol] 20 U/L Normal 13-39 U/L [employer] Other Bilirubin [Mass/Vol] 0.6501414 mg/dL Normal 0.3-1.0 mg /dL [employer] Other Calcium [Mass/Vol] 9.9027734 mg/dL Normal 8.6-10 .3 mg/dL [employer] Other Chloride [Moles/Vol] 107 mmol/L Normal 98-107 mmol/L [employer] Other CO2 [Moles/Vol] 30.18340788 mmol/L Normal 21.0-3 1.0 mmol/L [employer] Other Creatinine [Mass/Vol] 0.14670801 mg/dL Normal 0.60-1.20 mg/dL [employer] Other GFR/1.73 sq M.predicted MDRD (S/P/Bld) [Vol rate/Area] mL/min/{1.73_m2} [employer] Other Glucose [Mass/Vol] 89 mg/dL Normal 70-100 mg/dL [employer] Other Potassium [Moles/Vol] 3.18804375 mmol/L Normal 3.5-5.1 mmol/L [employer] Other Protein [Mass/Vol] 6.683515 g/dL Low 6.4-8.9 g/dL [employer] Other Sodium [Moles/Vol] 143 mmol/L Normal 136-145 mmol/L [employer] Other Urea nitrogen [Mass/Vol] 21 mg/dL Normal 7-25 mg/dL [employer] Other Comprehensive Metabolic Panel 2.2 g/dL [employer] Other Free T4 (Free Thyroxine)on 0 07-08-2023 Free T4 [Mass/Vol] 1.56754265 ng/dL High 0.61- 1.12 ng/dL [employer] Other Thyroid Antibodies TPO+Tg Ab on 07-08-2023 Thyroid Antibodies TPO+Tg Ab 11 0-34 [employer] Other Thyroid Antibodies TPO+Tg Ab <1.0 0.0-0.9 [employer] Other Thyroid Stimulating Hormoneo n 07-08-2023 TSH Qn 2.83698680641 m[IU]/L Normal 0.45-5 .33 u[iU]/mL [employer] Other Echocardiogramon 02-26-[address], [place] [address] TRANSTHORACIC ECHOCARDIOGRAM REPORT Patient Name: LAVONNE Bahena Physician: [id number] Shy [facility] Study Date: 02/26/2023 Referring SHY WOLF Physician: MRN/PID: [id number] PCP: Suhas Garrett MD Accession/Order#: [id number] Department [facility] Location: Date of : 1935 Fellow: Gender: F Nurse: Admit Date: Eradicator: Sheridan Lemus RDCS, [facility] Height: 157.48 cm CC Report to: Weight: 67.13 kg Study Type: Echocardiogram BSA: 1.68 m2 Blood Pressure: 122 /76 mmHg Diagnosis/ICD: I35.0-Nonrheumatic aortic (valve) stenosis; R01.1-Cardiac murmur, unspecified Indication: HTN, Hyperlipidemia, Overweight, Hypothyroid, Polymyalgia Rheumatica Procedure/CPT: Echo Complete w Full Doppler-[id number] Study Detail: The following Echo studies were [...] mmHg PIEDV: 2.50 m/s PADP: 28.0 mmHg [id number] Shy Wolf MD, FACC Electronically signed on 03/01/2023 at 2:16:46 PM Final Normal [facility] Office Visit (Cardiology)on 12-24-2022 Follow-up visit Diagnoses/Problems Assessed Aortic stenosis (424.1) (I35.0) Murmur, cardiac (785.2) (R01.1) Essential hypertension (401.9) (I10) Hyperlipidemia (272.4) (E78.5) Overweight with body mass index (BMI) of 27 to 27.9 in adult (278.02,V85.23) (E66.3,Z68.27) Never smoker Hypothyroidism (244.9) (E03.9) PMR (polymyalgia rheumatica) (725) (M35.3) Orders Aortic stenosis, Murmur, cardiac Echocardiogram; Status:Hold For - Scheduling,Retrospect bola Authorization; Requested for:[id number]; Essential hypertension, Hyperlipidemia Changed: From Aspirin EC 81 MG TBEC TAKE 1 TABLET To Aspirin 81 MG Oral Tablet Delayed Release TAKE 1 TABLET DAILY Overweight with body mass index (BMI) of 27 to 27.9 in adult Healthy Weight Tips; Status:Complete - Retrospective Authorization; Done: [id number] Some eating tips that can help you lose weight.; Status:Complete - Retrospective Authorization; Done: [id number] SocHx: Never smoker Tobacco Use Screening; Status:Complete; Done: [id number] Patient Instructions Please bring all medicines, vitamins, [...] is being tapered gradually Shy Wolf MD, [facility] Past Medical History Problems History [...] Multi Vitamin Oral TabletTAKE 1 TABLET DAILY. [place]-3 Fish Oil 1000 MG Oral CapsuleTAKE 1 [...] negative for complaint. Vitals Vital Signs Recorded: [id number] 11:32AM Heart Rate68, R Radial Uszwpeof914, RUE, Sitting Ucbcxgnfy49, RUE, Sitting Height5 ft 2 in Vmamec729 lb BMI Kofzntrhix07.07 kg/m2 BSA Calculated1.68 Tobacco Useb) No PHQ-2 [...] distress a (more content not included)... [employer] Tobacco Screening.on 023 Adult depression screening assessment No [facility] [employer] [facility] 250 DO Work Phone: Fall risk assessment a) No falls within the last year [facility] 250 DO Work Phone: Tobacco use status [facility]PHS b) No [facility] 250 DO Work Phone: Complete Blood Count Auto Di ffon 02-22-2022 Basophils (Bld) [#/Vol] 0.296727087 10*3/uL Normal 0.0-0.2 10*3/uL [employer] Other Basophils/100 WBC (Bld) 0.700 % . % [employer] Other Eosinophils (Bld) [#/Vol] 0.079187301 10*3/uL Normal 0.0-0.45 10*3/uL [employer] Other Eosinophils/100 WBC (Bld) 0.700 % . % [employer] Other Erythrocyte distribution width (RBC) [Ratio] 13.500 % Normal 11.9-15.3 % [employer] Other Hematocrit (Bld) [Volume fraction] 38.400 % Normal 34.0-46.4 % [employer] Other Hemoglobin (Bld) [Mass/Vol] 12.439210 g/dL Normal 11.8-15.4 g/dL [employer] Other Lymphocytes (Bld) [#/Vol] 0.386822245 10*3/uL Low 1.00-4.8 10*3/uL [employer] Other Lymphocytes/100 WBC (Bld) 12.600 % . % [employer] Other MCH (RBC) [Entitic mass] 33.7000 pg Normal 24.7-34.3 pg [employer] Other MCV (RBC) [Entitic vol] 100.4000 fL High 80-100 fL [employer] Other Monocytes (Bld) [#/Vol] 0.736858354 10*3/uL Normal 0.0-0.8 10*3/uL [employer] Other Monocytes/100 WBC (Bld) 6.800 % . % [employer] Other Neutrophils (Bld) [#/Vol] 5.944767878 10*3/uL Normal 1.8-7.7 10*3/uL [employer] Other Neutrophils/100 WBC (Bld) 79.200 % . % [employer] Other Platelet mean volume (Bld) [Entitic vol] 9.4000 fL Normal 6.3-10.7 fL [employer] Other Platelets (Bld) [#/Vol] 223 10*3/uL Normal 150-450 10*3/uL [employer] Other RBC (Bld) [#/Vol] 3.6246686861 10*6/uL Normal 3. 60-5.00 10*6/uL [employer] Other WBC (Bld) [#/Vol] 6.035393135 10*3/uL Normal 3.8 -11.6 10*3/uL [employer] Other Complete Blood Count Auto Diff 6.6 10*3/uL Normal 4.5-11.0 10*3/uL [employer] Other Complete Blood Count Auto Diff 33.6 g/dL Normal 32.0-35.0 g/dL [employer] Other Complete Blood Count Auto Diff 0.1 % Normal 0-0.5 % [employer] Other Erythrocyte Sedimentation Ra amy 02-22-2022 ESR (Bld) [Velocity] 28 mm/h Normal 0-29 [employer] Other VASC LAB Carotid Artery Dupl ex Ultrasoundon 02-21-2022 US.doppler Carotid arteries [facility] [employer] [address] [place] Work Phone: COVID Quick Testingon 2021 Result Positive [employer] Other Falls Screening (Age 18+)on 12-26-2021 Fall risk assessment a) No falls within the last year [facility] [employer] 250 DO Work Phone: Office Visit (Cardiology)on [...] Multi Vitamin Oral TabletTAKE 1 TABLET DAILY. [place] 3 500 [place] 1 CAPSULE Daily predniSONE 5 MG Oral Svzqqi1MX 7.5MG BY MOUTH ONE DAILY ALTERNATING EVERY OTHER DAY Allergies Medication amoxicillin Hives;; Recorded By: Kayla Orr; 10/17/2021 10:50:34 AM Dilantin CAPS Rash; Recorded By: Kayla Orr; 10/17/2021 10:50:34 AM Fosamax eye pain; Recorded By: Kayla Orr; 10/17/2021 10:50:34 AM Depakote ER TB24 Recorded By: Kayla Orr; 10/17/2021 10:50:34 AM Vitals Vital Signs Recorded: 26Dec2021 11:04AMRecorded: 26Dec2021 11:00AM Heart Rate56, R Oxixbc93, R Radial Xatwxked768, LUE, Kfjjpwa253, RUE Cdlplijok01, LUE, Oznlamv57, RUE Height5 ft 2 in5 ft 2 in Rvtlis395 lb 143 lb BMI Mhbsnxtukm65.16 kg/m226.16 kg/m2 BSA Calculated1.661.66 Falls Screening (Age 18+)a) No falls within the last year Signatures Electronically signed by : Shy Wolf MD; Dec 26 2021 4:02PM EST (Author) Normal [employer] Tobacco Screening.on 022 Adult depression screening assessment No [facility] Work Phone: Fall risk assessment a) No falls within the last year [facility] Work Phone: Tobacco use status CPHS b) No [facility] Work Phone: Vital Signs Date Time Vital Sign Value 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 Facility 01-14-2025 11:07-0400 Body height 157.5 cm Shy Wolf MD Work Phone: [facility] 01-14-2025 11:07-0400 Body mass index (BMI) [Ratio] 27.44 kg/m2 Shy Wolf MD Work Phone: [facility] 01-14-2025 11:07-0400 Body weight 68.04 kg Shy Wolf MD Work Phone: [facility] 01-14-2025 11:07-0400 Diastolic blood pressure 78 mm[Hg] Shy Wolf MD Work Phone: [facility] 01-14-2025 11:07-0400 Heart rate 60 /min Shy Wolf MD Work Phone: [facility] 01-14-2025 11:07-0400 Systolic blood pressure 168 mm[Hg] Shy Wolf MD Work Phone: [facility] 12-21-2024 12:30-0400 Body height 157.[address] 12-21-2024 12:30-0400 Body mass index (BMI) [Ratio] 26.52 kg/m2 [address] 12-21-2024 12:30-0400 Body weight 65.[address] 12-21-2024 12:30-0400 Diastolic blood pressure 68 mm[Hg] [address] 12-21-2024 12:30-0400 Systolic blood pressure 146 mm[Hg] [address] 12-08-2024 13:56-0400 Diastolic blood pressure 70 mm[Hg] Reuben Burns CLINICAL TRIAL ASSISTANT-SOFTWARE ASSET MANAGER Work Phone: [facility] 12-08-2024 13:56-0400 Systolic blood pressure 142 mm[Hg] Reuben Burns CLINICAL TRIAL ASSISTANT-SOFTWARE ASSET MANAGER Work Phone: [facility] 12-07-2024 14:59-0400 Body height 157.5 cm Reuben Burns CLINICAL TRIAL ASSISTANT-SOFTWARE ASSET MANAGER Work Phone: [facility] 12-07-2024 14:59-0400 Body mass index (BMI) [Ratio] 26.45 kg/m2 Reuben Burns CLINICAL TRIAL ASSISTANT-SOFTWARE ASSET MANAGER Work Phone: [facility] 12-07-2024 14:59-0400 Body weight 65.59 kg Reuben Burns CLINICAL TRIAL ASSISTANT-SOFTWARE ASSET MANAGER Work Phone: [facility] 12-07-2024 14:59-0400 Heart rate 62 /min Reuben Burns CLINICAL TRIAL ASSISTANT-SOFTWARE ASSET MANAGER Work Phone: [facility] 04-16-2024 13:16-0500 Body height 157.5 cm Shy Wolf MD Work Phone: [facility] 04-16-2024 13:16-0500 Body mass index (BMI) [Ratio] 26.67 kg/m2 Shy Wolf MD Work Phone: [facility] 04-16-2024 13:16-0500 Body weight 66.13 kg Shy Wolf MD Work Phone: [facility] 04-16-2024 13:16-0500 Diastolic blood pressure 62 mm[Hg] Shy Wolf MD Work Phone: [facility] 04-16-2024 13:16-0500 Heart rate 62 /min Shy Wolf MD Work Phone: [facility] 04-16-2024 13:16-0500 Systolic blood pressure 120 mm[Hg] Shy Wolf MD Work Phone: [facility] 02-11-2024 12:28-0400 Body height 157.[address] 02-11-2024 12:28-0400 Body mass index (BMI) [Ratio] 27.98 kg/m2 [address] 02-11-2024 12:28-0400 Body weight 69.[address] 02-11-2024 12:28-0400 Diastolic blood pressure 76 mm[Hg] [address] 02-11-2024 12:28-0400 Systolic blood pressure 116 mm[Hg] [address] 07-04-2023 11:15-0500 Body height 157.48 cm Suhas Garrett Other [employer] [facility] [employer] Other 07-04-2023 11:15-0500 Body mass index (BMI) [Ratio] 28.53 kg/m2 Suhas Garrett Other [employer] [facility] [employer] Other 07-04-2023 11:15-0500 Body weight 70.76 kg Suhas Garrett Other [employer] Other 07-04-2023 11:15-0500 Diastolic blood pressure 84 mm[Hg] Suhas Garrett Other [employer] Other 07-04-2023 11:15-0500 Respiratory rate 20 /min Suhas Garrett Other [employer] [facility] [employer] Other 07-04-2023 11:15-0500 SaO2% (BldA) [Mass fraction] 99 % Suhas Garrett Other [employer] Other 07-04-2023 11:15-0500 Systolic blood pressure 150 mm[Hg] Suhas Garrett Other [employer] Other 06-19-2023 11:09-0500 Body height 157.5 cm Shy Wolf MD Work Phone: [facility] 06-19-2023 11:09-0500 Body mass index (BMI) [Ratio] 27.98 kg/m2 Shy Wolf MD Work Phone: [facility] 06-19-2023 11:09-0500 Body weight 69.4 kg Shy Wolf MD Work Phone: [facility] 06-19-2023 11:09-0500 Diastolic blood pressure 76 mm[Hg] Shy Wolf MD Work Phone: [facility] 06-19-2023 11:09-0500 Heart rate 60 /min Shy Wolf MD Work Phone: [facility] 06-19-2023 11:09-0500 Systolic blood pressure 120 mm[Hg] Shy Wolf MD Work Phone: [facility] 05-30-2023 11:00-0500 Body height 157.48 cm Suhas Garrett Other [employer] Other 05-30-2023 11:00-0500 Body mass index (BMI) [Ratio] 27.8 kg/m2 Suhas Garrett Other [employer] Other 05-30-2023 11:00-0500 Body weight 68.95 kg Suhas Garrett Other [employer] Other 05-30-2023 11:00-0500 Diastolic blood pressure 80 mm[Hg] Suhas Garrett Other [employer] Other 05-30-2023 11:00-0500 Respiratory rate 18 /min Suhas Ugo Other [employer] Other 05-30-2023 11:00-0500 SaO2% (BldA) [Mass fraction] 96 % Suhas Garrett Other [employer] Other 05-30-2023 11:00-0500 Systolic blood pressure 122 mm[Hg] Suhas Garrett Other [employer] Other 02-28-2023 10:30-0400 Body height 157.48 cm Suhasraquel Mayoadan Other [employer] Other 02-28-2023 10:30-0400 Body mass index (BMI) [Ratio] 27.98 kg/m2 Suhas Ugo Other [employer] Other 02-28-2023 10:30-0400 Body weight 69.4 kg Suhas Garrett Other [employer] Other 02-28-2023 10:30-0400 Diastolic blood pressure 76 mm[Hg] Suhas Garrett Other [employer] Other 02-28-2023 10:30-0400 Respiratory rate 16 /min Suhas Garrett Other [employer] Other 02-28-2023 10:30-0400 SaO2% (BldA) [Mass fraction] 91 % Suhas Garrett Other [employer] Other 02-28-2023 10:30-0400 Systolic blood pressure 134 mm[Hg] Suhas Garrett Other [facility] [employer] Other 12-24-2022 11:32-0400 Body height 157.48 cm Suhas Hoffman Ugo Work Phone: [facility] [address] DO Work Phone: 12-24-2022 11:32-0400 Body mass index (BMI) [Ratio] 27.07 kg/m2 Suhas Dalton Garrett Work Phone: [facility] [address] DO Work Phone: 12-24-2022 11:32-0400 Body surface area Derived from formula 1.68 m2 Suhas Garrett Work Phone: [facility] [address] DO Work Phone: 12-24-2022 11:32-0400 Body weight 67.13 kg Suhas Dalton Garrett Work Phone: [facility] [address] DO Work Phone: 12-24-2022 11:32-0400 Diastolic blood pressure 76 mm[Hg] Suhas Hoffman Ugo Work Phone: [facility] [address] DO Work Phone: 12-24-2022 11:32-0400 Heart rate 68 /min Suhas Hoffman Ugo Work Phone: [facility] [address] DO Work Phone: 12-24-2022 11:32-0400 Systolic blood pressure 118 mm[Hg] Suhas Garrett Work Phone: [facility] [address] DO Work Phone: 12-06-2022 10:30-0400 Body height 157.48 cm Suhas Garrett Other [facility] [employer] Other 12-06-2022 10:30-0400 Body mass index (BMI) [Ratio] 27.98 kg/m2 Suhas Ugo Other [employer] Other 12-06-2022 10:30-0400 Body weight 69.4 kg Suhas Ugo Other [employer] Other 12-06-2022 10:30-0400 Diastolic blood pressure 70 mm[Hg] Suhas Garrett Other [employer] Other 12-06-2022 10:30-0400 Respiratory rate 16 /min Suhas Garrett Other [employer] Other 12-06-2022 10:30-0400 SaO2% (BldA) [Mass fraction] 98 % Suhas Garrett Other [employer] Other 12-06-2022 10:30-0400 Systolic blood pressure 146 mm[Hg] Suhas Garrett Other [employer] Other 09-20-2022 11:45-0400 Body height 157.48 cm Suhas Garrett Other [employer] Other 09-20-2022 11:45-0400 Body mass index (BMI) [Ratio] 26.34 kg/m2 Suhas Garrett Other [employer] Other 09-20-2022 11:45-0400 Body weight 65.32 kg Suhas Garrett Other [employer] Other 09-20-2022 11:45-0400 Diastolic blood pressure 70 mm[Hg] Suhas Garrett Other [employer] Other 09-20-2022 11:45-0400 Respiratory rate 16 /min Suhas Ugo Other [employer] Other 09-20-2022 11:45-0400 SaO2% (BldA) [Mass fraction] 98 % Suhas Garrett Other [employer] Other 09-20-2022 11:45-0400 Systolic blood pressure 130 mm[Hg] Suhas Garrett Other [employer] Other 07-22-2022 11:30-0500 Body height 157.48 cm Suhas Garrett Other [employer] Other 07-22-2022 11:30-0500 Body mass index (BMI) [Ratio] 26.85 kg/m2 Suhas Garrett Other [employer] Other 07-22-2022 11:30-0500 Body weight 66.59 kg Suhas Garrett Other [employer] Other 07-22-2022 11:30-0500 Diastolic blood pressure 70 mm[Hg] Suhas Garrett Other [employer] Other 07-22-2022 11:30-0500 Respiratory rate 16 /min Suhas Garrett Other [employer] Other 07-22-2022 11:30-0500 SaO2% (BldA) [Mass fraction] 98 % Suhas Garrett Other [employer] Other 07-22-2022 11:30-0500 Systolic blood pressure 122 mm[Hg] Suhas Garrett Other [employer] Other 04-17-2022 11:45-0500 Body height 157.48 cm Suhas Garrett Other [employer] Other 04-17-2022 11:45-0500 Body mass index (BMI) [Ratio] 26.88 kg/m2 Suhas Garrett Other [employer] Other 04-17-2022 11:45-0500 Body weight 66.68 kg Suhas Garrett Other [employer] Other 04-17-2022 11:45-0500 Diastolic blood pressure 72 mm[Hg] Suhas Garrett Other [employer] Other 04-17-2022 11:45-0500 Respiratory rate 16 /min Suhas Garrett Other [employer] Other 04-17-2022 11:45-0500 SaO2% (BldA) [Mass fraction] 99 % Suhas Garrett Other [employer] Other 04-17-2022 11:45-0500 Systolic blood pressure 138 mm[Hg] Suhas Garrett Other [employer] Other 02-22-2022 10:15-0400 Body height 157.48 cm Suhas Garrett Other [employer] Other 02-22-2022 10:15-0400 Body mass index (BMI) [Ratio] 27.07 kg/m2 Suhas Garrett Other [employer] Other 02-22-2022 10:15-0400 Body weight 67.13 kg Suhas Garrett Other [employer] Other 02-22-2022 10:15-0400 Diastolic blood pressure 70 mm[Hg] Suhas Garrett Other [employer] Other 02-22-2022 10:15-0400 Respiratory rate 16 /min Suhas Garrett Other [employer] Other 02-22-2022 10:15-0400 SaO2% (BldA) [Mass fraction] 97 % Suhas Garrett Other [employer] Other 02-22-2022 10:15-0400 Systolic blood pressure 122 mm[Hg] Suhas Garrett Other [employer] Other 02-21-2022 10:45-0400 70 1 Suhas Garrett Work Phone: [facility] [address] [place] Work Phone: Comment on above: [id number] 02-14-2022 15:45-0400 Body height 157.48 cm Suhas Garrett Other [employer] Other 02-14-2022 15:45-0400 Body mass index (BMI) [Ratio] 26.7 kg/m2 Suhas Garrett Other [employer] Other 02-14-2022 15:45-0400 Body weight 66.23 kg Suhas Garrett Other [employer] Other 02-14-2022 15:45-0400 Diastolic blood pressure 72 mm[Hg] Suhas Garrett Other [employer] Other 02-14-2022 15:45-0400 Respiratory rate 16 /min Suhas Gaeladan Other [facility] [employer] Other 02-14-2022 15:45-0400 SaO2% (BldA) [Mass fraction] 96 % Suhas Gaeladan Other [facility] [employer] Other 02-14-2022 15:45-0400 Systolic blood pressure 132 mm[Hg] Suhas Garrett Other [facility] [employer] Other 12-26-2021 11:04-0400 Body height 157.48 cm Suhas Hoffman Ugo Work Phone: [facility] [employer] DO Work Phone: 12-26-2021 11:04-0400 Body mass index (BMI) [Ratio] 26.16 kg/m2 Suhas Dalton Garrett Work Phone: [facility] [employer] [address] DO Work Phone: 12-26-2021 11:04-0400 Body surface area Derived from formula 1.66 m2 Suhas Dalton Garrett Work Phone: [facility] [employer] [address] DO Work Phone: 12-26-2021 11:04-0400 Body weight 64.86 kg Suhas Dalton Garrett Work Phone: [facility] [address] DO Work Phone: 12-26-2021 11:04-0400 Diastolic blood pressure 68 mm[Hg] Suhas Mayoadan Work Phone: [facility] [address] DO Work Phone: 12-26-2021 11:04-0400 Heart rate 56 /min Shuas Mayoadan Work Phone: [facility] [employer] [address] DO Work Phone: 12-26-2021 11:04-0400 Systolic blood pressure 126 mm[Hg] Suhas Garrett Work Phone: [facility] [address] DO Work Phone: 12-26-2021 11:00-0400 Diastolic blood pressure 70 mm[Hg] Suhas Garrett Work Phone: [facility] [address] DO Work Phone: 12-26-2021 11:00-0400 Systolic blood pressure 130 mm[Hg] Suhas Garrett Work Phone: [facility] [address] DO Work Phone: 12-13-2021 11:39-0400 Diastolic blood pressure 80 mm[Hg] Suhas Garrett Work Phone: [facility] Work Phone: 12-13-2021 11:39-0400 Systolic blood pressure 170 mm[Hg] Suhas Garrett Work Phone: [facility] Work Phone: 12-13-2021 11:22-0400 Diastolic blood pressure 80 mm[Hg] Suhas Garrett Work Phone: [facility] Work Phone: 12-13-2021 11:22-0400 Systolic blood pressure 158 mm[Hg] uShas Garrett Work Phone: [facility] Work Phone: 12-13-2021 11:17-0400 Body height 157.48 cm Suhas Garrett Work Phone: [facility] Work Phone: 12-13-2021 11:17-0400 Body mass index (BMI) [Ratio] 26.52 kg/m2 Suhas Garrett Work Phone: [facility] Work Phone: 12-13-2021 11:17-0400 Body surface area Derived from formula 1.67 m2 Suhas Garrett Work Phone: [facility] Work Phone: 12-13-2021 11:17-0400 Body weight 65.77 kg Suhas Garrett Work Phone: [facility] Work Phone: 12-13-2021 11:17-0400 Diastolic blood pressure 80 mm[Hg] Suhas Garrett Work Phone: [facility] Work Phone: 12-13-2021 11:17-0400 Heart rate 60 /min Suhas Garrett Work Phone: [facility] Work Phone: 12-13-2021 11:17-0400 Systolic blood pressure 160 mm[Hg] Suhas Garrett Work Phone: [facility] Work Phone: 10-01-2021 13:30-0400 Body height 157.48 cm Suhas Garrett Other [employer] [facility] [employer] Other 10-01-2021 13:30-0400 Body mass index (BMI) [Ratio] 26.34 kg/m2 Suhas Garrett Other [employer] Other 10-01-2021 13:30-0400 Body weight 65.32 kg Suhas Garrett Other [employer] Other 10-01-2021 13:30-0400 Diastolic blood pressure 72 mm[Hg] Suhas Garrett Other [employer] Other 10-01-2021 13:30-0400 Respiratory rate 18 /min Suhas Garrett Other [employer] Other 10-01-2021 13:30-0400 SaO2% (BldA) [Mass fraction] 99 % Suhas Garrett Other [employer] Other 10-01-2021 13:30-0400 Systolic blood pressure 130 mm[Hg] Suhasraquel Mayoadan Other [employer] Other 08-02-2021 13:30-0500 Body height 157.48 cm Suhasraquel Mayoadan Other [employer] Other 08-02-2021 13:30-0500 Body mass index (BMI) [Ratio] 26.52 kg/m2 Suhas Ugo Other [employer] Other 08-02-2021 13:30-0500 Body weight 65.77 kg Suhasraquel Mayoadan Other [employer] Other 08-02-2021 13:30-0500 Diastolic blood pressure 70 mm[Hg] Suhas Ugo Other [employer] Other 08-02-2021 13:30-0500 Respiratory rate 16 /min Suhas Garrett Other [employer] Other 08-02-2021 13:30-0500 SaO2% (BldA) [Mass fraction] 99 % Suhas Garrett Other [employer] Other 08-02-2021 13:30-0500 Systolic blood pressure 118 mm[Hg] Suhas Garrett Other [employer] Other 04-26-2021 13:30-0500 Body height 157.48 cm Suhas Garrett Other [employer] Other 04-26-2021 13:30-0500 Body mass index (BMI) [Ratio] 25.97 kg/m2 Suhas Garrett Other [employer] Other 04-26-2021 13:30-0500 Body weight 64.41 kg Suhas Garrett Other [employer] Other 04-26-2021 13:30-0500 Diastolic blood pressure 74 mm[Hg] Suhas Garrett Other [employer] Other 04-26-2021 13:30-0500 Respiratory rate 17 /min Suhas Garrett Other [employer] Other 04-26-2021 13:30-0500 SaO2% (BldA) [Mass fraction] 98 % Suhas Garrett Other [employer] Other 04-26-2021 13:30-0500 Systolic blood pressure 120 mm[Hg] Suhas Garrett Other [employer] Other Encounters Encounter Date Encounter Type Care Provider Facility Start: 02-14-2025 End: 02-14-2025 ambulatory Gloria Weston MD Facility:[facility] Start: 01-14-2025 End: 01-14-2025 Office outpatient visit 25 minutes Shy Wolf MD Work Phone: [facility] Comment on above: Nonrheumatic aortic valve stenosis (Primary Dx); 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; Hyperlipidemia, unspecified hyperlipidemia type; PMR (polymyalgia rheumatica) (Multi); Hypothyroidism, unspecified type; BMI 27.0-27.9,adult; Never smoked any substance; Overweight Start: 01-14-2025 End: 01-14-2025 ambulatory SHY WOLF [facility] Ambulatory Start: 12-21-2024 End: 12-21-2024 Subsequent hospital visit by physician Susie Baker Echo/Vasc Room 2 [facility] Comment on above: Aortic valve stenosi s, etiology of cardiac valve disease unspecified Start: 12-21-2024 End: 12-21-2024 ambulatory [facility] Start: 12-07-2024 End: 12-07-2024 Office outpatient visit 15 minutes Reuben Bernie Burns CLINICAL TRIAL ASSISTANT-SOFTWARE ASSET MANAGER Work Phone: [facility] Comment on above: 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 (Primary Dx); BMI 26.0-26.9,adult Start: 12-07-2024 End: 12-07-20[facility] Start: 10-25-2024 End: 10-25-2024 [facility] Start: 09-13-2024 End: 09-13-2024 ambulatory Gloria Weston MD [facility] Start: 07-28-2024 End: 07-28-2024 ambulatory Suhas Garrett Facility:[facility] Start: 05-25-2024 End: 05-25-2024 ambulatory Suhas Garrett Facility:[facility] Start: 04-16-2024 End: 04-16-2024 Office outpatient visit 25 minutes Shy Wolf MD Work Phone: [facility] Comment on above: Aortic valve stenosi s, etiology of cardiac valve disease unspecified (Primary Dx); Essential hypertension; Hyperlipidemia, unspecified hyperlipidemia type; Never smoked any substance; BMI 26.0-26.9,adult; Hypothyroidism, unspecified type Start: 04-16-2024 End: 04-16-2024 ambulatory [facility] Start: 02-11-2024 End: 02-11-2024 Subsequent hospital visit by physician Susie Baker Echo/Vasc Room 2 [facility] Comment on above: Nonrheumatic aortic valve stenosis; Aortic valve stenosis, etiology of cardiac valve disease unspecified Start: 02-11-2024 End: 02-11-2024 ambulatory [facility] Start: 10-14-2023 End: 10-14-2023 ambulatory Suhas Kuns Facility:[facility] Start: 09-03-2023 End: 09-03-2023 ambulatory Suhas Garrett Facility:[facility] Start: 07-18-2023 End: 07-18-2023 ambulatory Suhas Mayos Other [employer] Other Start: 07-18-2023 Telephone encounter Suhas Garrett [facility] Start: 07-15-2023 End: 07-15-2023 ambulatory Suhas Garrett Other [employer] Other Start: 07-15-2023 Telephone encounter Suhas Garrett [facility] [place] Start: 07-10-2023 End: 07-10-2023 ambulatory Suhas Garrtet Other [employer] Other Start: 07-10-2023 Telephone encounter Suhas Garrett [facility] [place] Start: 07-07-2023 End: 07-07-2023 ambulatory Suhas Garrett Other [employer] Other Start: 07-07-2023 Telephone encounter Suhas Garrett [facility] [place] Start: 07-04-2023 End: 07-04-2023 ambulatory Suhas Garrett Other [employer] Other Start: 07-04-2023 Office outpatient vi sit 15 minutes Suhas Garrett [facility] [place] Start: 06-19-2023 End: 06-19-2023 ambulatory Suhas Mayos Other [employer] Other Start: 06-19-2023 Telephone encounter Suhas Garrett [facility] [place] Start: 06-19-2023 End: 06-19-2023 Office outpatient visit 25 minutes Shy Wolf MD Work Phone: [facility] Comment on above: Aortic valve stenosi s, etiology of cardiac valve disease unspecified; Essential hypertension; Hyperlipidemia, unspecified hyperlipidemia type; Never smoked any substance Start: 05-30-2023 End: 05-30-2023 ambulatory Suhas Garrett Other [employer] Other Start: 05-30-2023 Office outpatient vi sit 25 minutes Suhas Garrett [facility] Start: 05-28-2023 End: 05-28-2023 ambulatory Suhas Garrett Other [employer] Other Start: 05-28-2023 Telephone encounter [facility]has [facility] Start: 04-23-2023 End: 04-23-2023 ambulatory Suhas Garrett Other [employer] Other Start: 04-23-2023 Telephone encounter Suhas Garrett [facility] Start: 04-18-2023 End: 04-18-2023 ambulatory Suhas Garrett Other [employer] Other Start: 04-18-2023 Telephone encounter Suhas Garrett [facility] Start: 03-02-2023 Chart Update Suhas Garrett Work Phone: [facility] 250 DO Work Phone: Start: 02-28-2023 End: 02-28-2023 ambulatory Suhas Garrett Other [employer] Other Start: 02-28-2023 Office outpatient vi sit 15 minutes Suhas Garrett [facility] Start: 02-26-[address] Suhas Garrett Facility:[id number] Start: 01-27-2023 End: 01-27-2023 ambulatory Suhas Garrett Other [employer] Other Start: 01-27-2023 Telephone encounter Suhas Garrett [facility] [place] Start: 12-24-2022 Office outpatient vi sit 25 minutes Suhas Garrett Work Phone: [facility] 250 DO Work Phone: Start: 12-24-[address] Shy Wolf Facility: Start: 12-06-2022 End: 12-06-2022 ambulatory Suhas Garrett Other [employer] Other Start: 12-06-2022 Office outpatient vi sit 15 minutes Suhas Garrett [facility] [place] Start: 09-20-2022 End: 09-20-2022 ambulatory Suhas Garrett Other [employer] Other Start: 09-20-2022 Office outpatient vi sit 15 minutes Suhas Garrett [facility] [place] Start: 08-14-2022 End: 08-14-2022 ambulatory Suhas Garrett Other [employer] Other Start: 08-14-2022 Telephone encounter Suhas Garrett [facility] [place] Start: 07-22-2022 End: 07-22-2022 ambulatory Suhas Garrett Other [employer] Other Start: 07-22-2022 Office outpatient vi sit 15 minutes Suhas Garrett [facility] [place] Start: 04-17-2022 End: 04-17-2022 ambulatory Suhas Garrett Other [employer] Other Start: 04-17-2022 Office outpatient vi sit 15 minutes Suhas Garrett [facility] [place] Start: 04-10-2022 End: 04-10-2022 ambulatory Suhas Garrett Other [employer] Other Start: 04-10-2022 Telephone encounter Suhas Garrett [facility] [place] Start: 04-03-2022 End: 04-03-2022 ambulatory Suhas Garrett Other [employer] Other Start: 04-03-2022 Telephone encounter Suhas Ugo [facility] [place] Start: 04-02-2022 End: 04-02-2022 ambulatory Suhas Garrett Other [employer] Other Start: 04-02-2022 Telephone encounter Suhas Garrett [facility] [place] Start: 02-26-2022 End: 02-26-2022 ambulatory Suhas Garrett Other [employer] Other Start: 02-26-2022 Telephone encounter Suhas Garrett [facility] [place] Start: 02-25-2022 End: 02-25-2022 ambulatory Suhas Garrett Other [employer] Other Start: 02-25-2022 Telephone encounter Suhas Garrett [facility] [place] Start: 02-22-2022 End: 02-22-2022 ambulatory Suhas Garrett Other [employer] Other Start: 02-22-2022 Office outpatient vi sit 25 minutes Suhas Garrett [facility] Start: 02-21-2022 Patient encounter procedure Suhas Garrett Work Phone: [facility] [address] [place] Work Phone: Start: 02-20-2022 End: 02-21-2022 ambulatory MAYO Zo CARBAJAL Facility:[facility] Start: 02-14-2022 End: 02-14-2022 ambulatory Suhas Garrett Other [employer] Other Start: 02-14-2022 Office outpatient vi sit 25 minutes Suhas Garrett [facility] [place] Start: 01-11-2022 End: 01-11-2022 ambulatory Suhas Garrett Other [employer] Other Start: 01-11-2022 Nursing evaluation o f patient and report Suhas Garrett [facility] [place] Start: 01-11-2022 Telephone encounter Suhas Garrett [facility] [place] Start: 12-26-2021 Office outpatient vi sit 10 minutes Suhas Garrett Work Phone: [facility] [address] DO Work Phone: Start: 12-26-[address] Suhas Garrett Facility: Start: 12-20-2021 End: 12-20-2021 ambulatory Suhas Garrett Other [employer] Other Start: 12-20-2021 Telephone encounter Suhas Garrett [facility] [place] Start: 12-13-2021 Office outpatient vi sit 25 minutes Suhas Garrett Work Phone: [facility] Work Phone: Start: 11-02-2021 End: 11-02-2021 ambulatory Suhas Garrett Other [employer] Other Start: 11-02-2021 Telephone encounter Suhas Garrett [facility] [place] Start: 10-01-2021 End: 10-01-2021 ambulatory Suhas Garrett Other [employer] Other Start: 10-01-2021 Office outpatient vi sit 15 minutes Suhas Garrett [facility] [place] Start: 09-10-2021 End: 09-10-2021 ambulatory Suhas Garrett Other [employer] Other Start: 09-10-2021 Telephone encounter Suhas Garrett [facility] [place] Start: 08-20-2021 End: 08-20-2021 ambulatory Suhas Garrett Other [employer] Other Start: 08-20-2021 Telephone encounter Suhasraquel Mayoadan [facility] [place] Start: 08-02-2021 End: 08-02-2021 ambulatory Suhasraquel Garrett Other [employer] Other Start: 08-02-2021 Office outpatient vi sit 15 minutes Suhas Ugo [facility] [place] Start: 07-25-2021 End: 07-25-2021 ambulatory Suhasraquel Garrett Other [employer] Other Start: 07-25-2021 Telephone encounter Suhas Garrett [facility] [place] Start: 05-08-2021 End: 05-08-2021 ambulatory Suhasraquel Garrett Other [employer] Other Start: 05-08-2021 Telephone encounter Suhasraquel Garrett [facility] [place] Start: 04-26-2021 End: 04-26-2021 ambulatory Suhas Garrett Other [employer] Other Start: 04-26-2021 Office outpatient vi sit 25 minutes Suhas [facility] Procedures Date Procedure Procedure Detail [...] (2 - Td or Tdap) [facility] Start: 01-26-2026 End: 01-26-2026 Patient encounter procedure 01/26/2026 11:00 AM EDT Office Visit [facility] [address] [place] [address] Shy Wolf MD [address] [place] [address] [facility] Start: 12-21-2025 Echocardiography Echocardiogram [facility] Start: 12-20-2025 End: 12-20-2025 Patient encounter procedure 12/20/2025 10:45 AM EDT Appointment [facility] [address] [facility] [address] [place] [address] [facility] Start: 12-14-2025 End: 01-14-2027 [place] Heart Transthoracic Transthoracic Echo Complete Echocardiography Routine Nonrheumatic aortic valve stenosis Expected: 12/14/2025 (Approximate), Expires: 01/14/2027 [facility] Work Phone: Comment on above: Expected: 12/14/2025 (Approximate), Expi res: 01/14/2027 Start: 08-07-2025 Medicare Annual Wellness Visit Medicare Annual Wellness Visit (AWV) [facility] Start: 02-10-2025 Echocardiography Echocardiogram [facility] Start: 02-07-2025 Influenza vaccination Influenza Vaccine (#1) [facility] Start: 01-14-2025 End: 04-16-2026 Heart Transthoracic Transthoracic Echo Complete Echocardiography Routine Aortic valve stenosis, etiology of cardiac valve disease unspecified Expected: 01/14/2025 (Approximate), Expires: 04/16/2026 [facility] Service Area Work Phone: Comment on above: Expected: 01/14/2025 (Approximate), Expi res: 04/16/2026 Start: 01-14-2025 End: 01-14-2025 Patient encounter procedure 01/14/2025 11:00 AM EDT Office Visit [address] [place] [address] Shy Wolf MD [address] [place] [address] [facility] Start: 12-21-2024 End: 12-21-2024 Patient encounter procedure 12/21/2024 12:30 PM EDT Appointment [facility] [address] [place] [address] [facility] Start: 10-06-2024 COVID-19 Vaccine ( season) COVID-19 Vaccine () [facility] Start: 03-16-2024 End: 03-16-2024 Patient encounter procedure 03/16/2024 11:20 AM EDT Office Visit [place] [id number] [place] [address] Shy Wolf MD [address] [place] [address] [facility] Start: 02-19-2024 Screening for osteoporosis Bone Density Scan [facility] Start: 02-11-2024 End: 02-11-2024 Patient encounter procedure 02/11/2024 12:30 PM EDT Appointment [place] [address] [place] [address] [facility] Start: 02-08-2024 COVID-19 Vaccine ( season) COVID-19 Vaccine ( season) [facility] Start: 02-08-2024 Influenza vaccination Influenza Vaccine (#1) [facility] Start: 02-08-2024 End: 06-19-2025 US Heart Transthoracic Transthoracic Echo (TTE) Complete Echocardiography Routine Aortic valve stenosis, etiology of cardiac valve disease unspecified Expected: 02/08/2024 (Approximate), Expires: 06/19/2025 [facility] Service Area Work Phone: Comment on above: Expected: 02/08/2024 (Approximate), Expi res: 06/19/2025 Start: 06-19-2023 FUV, Provider: Shy Wolf, Status: Pen, Time: 11:00 AM FUV, Provider: Shy Wolf, Status: Pen, Time: 11:00 AM [facility] [address] DO Work Phone: Start: 05-28-2023 COVID-19 Vaccine (5 - Moderna series) COVID-19 Vaccine (5 - Moderna series) [facility] Start: 02-26-2023 ECHO, Provider: [place] [facility]VI ULTRASOUND 01,[id number], Status: Pen, Time: 10:45 AM ECHO, Provider: [place] [facility] ULTRASOUND 01,[id number], Status: Pen, Time: 10:45 AM [facility] [address] DO Work Phone: Start: 12-24-2022 FUV, Provider: Shy Wolf, Status: Pen, Time: 11:20 AM FUV, Provider: Shy Wolf, Status: Pen, Time: 11:20 AM [facility] Work Phone: Start: 02-21-2022 CAROTID, Provider: [place] [facility] ULTRASOUND 01,[id number], Status: Pen, Time: 12:30 PM CAROTID, Provider: [place] [facility] ULTRASOUND 01,[id number], Status: Pen, Time: 12:30 PM [facility] Work Phone: Start: 02-21-2022 ECHO, Provider: [place] [facility]VI ULTRASOUND 01,[id number], Status: Pen, Time: 10:45 AM ECHO, Provider: [place] [facility] ULTRASOUND 01,[id number], Status: Pen, Time: 10:45 AM [facility] Work Phone: Start: 01-17-2022 CAROTID, Provider: [place] [facility] ULTRASOUND 01,[id number], Status: Pen, Time: 2:30 PM CAROTID, Provider: [place] [facility] ULTRASOUND 01,[id number], Status: Pen, Time: 2:30 PM [facility] Work Phone: Start: 01-17-2022 ECHO, Provider: [place] YII ULTRASOUND 01,[id number], Status: Pen, Time: 1:30 PM ECHO, Provider: [place] HHVI ULTRASOUND 01,[id number], Status: Pen, Time: 1:30 PM [facility] Work Phone: Start: 12-26-2021 NURSEVST, Provider: MAGDA DANIEL REFRACTIVE SURGEON 1,[id number], Status: Pen, Time: 11:00 AM NURSEVST, Provider: MAGDA DANIEL REFRACTIVE SURGEON 1,[id number], Status: Pen, Time: 11:00 AM [facility] Work Phone: Start: 1996 Hepatitis B Vaccines (1 of 3 - Risk 3-dose series) Hepatitis B Vaccines (1 of 3 - Risk 3-dose series) [facility] Start: 08-11-1955 Hepatitis A Vaccines (1 of 2 - Risk 2-dose series) Hepatitis A Vaccines (1 of 2 - Risk 2-dose series) [facility] Start: 1936 Creatinine measurement Creatinine Level [facility] Start: 1936 Lipid panel Lipid Panel [facility] Start: 1936 Medicare Annual Wellness Visit Medicare Annual Wellness Visit (AWV) [facility] Start: 1936 Potassium measurement Potassium Level [facility] Start: 1936 Thyroid stimulating hormone measurement TSH Level [facility] ECG 12 Lead ECG 12 Lead ECG Routine 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 Ordered: 12/08/2024 [facility] Service Area Work Phone: Comment on above: Ordered: 12/08/2024 End: 02-11-2024 US Heart Transthoracic [facility] Service Area Work Phone: Comment on above: Once for 1 Occurrences starting 02/11/20 24 until 02/11/2024 Immunizations Immunization Date Immunization Notes Care Provider Fa adin 04-23-2024 Pneumococcal conjuga te vaccine, 20-valent (PREVNAR 20) Shy Wolf MD Work Phone: [facility] Work Phone: 04-07-2024 Moderna COVID-19 vaccine, 12 years and older (50mcg/0.5mL)(Spikevax) Shy Wolf MD Work Phone: [facility] Work Phone: 04-07-2024 Seasonal trivalent influenza vaccine, adjuvanted, preservative free Shy Wolf MD Work Phone: [facility] Work Phone: 04-07-2024 influenza virus vaccine, unspecified formulation Reuben Burns CLINICAL TRIAL ASSISTANT-SOFTWARE ASSET MANAGER Work Phone: [facility] Work Phone: 06-07-2023 RESPIRATORY SYNCYTIA L VIRUS (RSV), ELIGIBLE PTS, 0.5 ML (ABRYSVO) Shy Wolf MD Work Phone: [facility] Work Phone: 04-02-2023 Influenza, Seasonal, Quadrivalent, Adjuvanted Shy Wolf MD Work Phone: [facility] Work Phone: 04-02-2023 Moderna COVID-19 vaccine, 12 years and older (50mcg/0.5mL)(Spikevax) Shy Wolf MD Work Phone: [facility] Work Phone: 04-02-2023 influenza virus vaccine, unspecified formulation Susie 2 [facility] Work Phone: 04-17-2022 Moderna COVID-19 Bivalent 50 MCG/0.5ML Intramuscular Suspension Suhas Garrett Work Phone: [facility] [address] DO Work Phone: 03-21-2022 Fluad Quadrivalent 0 .5 ML Intramuscular Prefilled Syringe Suhas Garrett Work Phone: [facility] [address] DO Work Phone: 03-21-2022 influenza, seasonal, injectable Suhas Garrett Other [facility] [employer] Other 11-14-2021 Moderna COVID-19 Vaccine 100 MCG/0.5ML Intramuscular Suspension Suhas Garrett Work Phone: [facility] Work Phone: 04-05-2021 Moderna COVID-19 Vaccine 100 MCG/0.5ML Intramuscular Suspension Suhas Garrett Work Phone: [facility] Work Phone: 03-19-2021 influenza, seasonal, injectable Suhas Garrett Other [facility] [employer] Other 08-08-2020 Moderna COVID-19 Vaccine 100 MCG/0.5ML Intramuscular Suspension Suhas Garrett Work Phone: [facility] Work Phone: 07-11-2020 Moderna COVID-19 Vaccine 100 MCG/0.5ML Intramuscular Suspension Suhas Garrett Work Phone: [facility] Work Phone: 04-28-2020 pneumococcal polysaccharide vaccine, 23 valent Suhas Garrett Other [facility] [employer] Other 03-06-2020 Seasonal trivalent influenza vaccine, adjuvanted, preservative free Suhas Garrett Work Phone: [facility] Work Phone: 03-06-2020 influenza, seasonal, injectable Suhas Garrett Other [facility] [employer] Other 02-08-2020 influenza virus vaccine, unspecified formulation Suhas Garrett Work Phone: [facility] Work Phone: 02-08-2020 influenza, seasonal, injectable Suhas Garrett Other [employer] Other 05-04-2019 zoster vaccine recombinant Suhas Garrett Other [employer] Other 03-09-2019 influenza, high dose seasonal, preservative-free Suhas Garrett Work Phone: [facility] Work Phone: 03-04-2019 influenza, seasonal, injectable Suhas Garrett Other [employer] Other 02-04-2019 zoster vaccine recombinant Suhas Garrett Other [employer] Other 05-12-2018 tetanus toxoid, redu bety diphtheria toxoid, and acellular pertussis vaccine, adsorbed Suhas Garrett Other [employer] Other 03-16-2018 Seasonal trivalent influenza vaccine, adjuvanted, preservative free Shy Wolf MD Work Phone: [facility] Work Phone: 03-09-2018 influenza virus vaccine, unspecified formulation Suhas Garrett Work Phone: [facility] Work Phone: 04-09-2017 influenza virus vaccine, unspecified formulation Suhas P Ugo Work Phone: [facility] Work Phone: 03-28-2017 Seasonal trivalent influenza vaccine, adjuvanted, preservative free Suhas Mayos Work Phone: [facility] Work Phone: 05-24-2016 pneumococcal conjuga te vaccine, 13 valent Shy Wolf MD Work Phone: [facility] Work Phone: 05-23-2016 pneumococcal conjuga te vaccine, 13 valent Suhas Kuns Other [facility] [employer] Other 04-01-2016 Seasonal trivalent influenza vaccine, adjuvanted, preservative free Suhas P Gaels Work Phone: [facility] Work Phone: 03-09-2016 influenza virus vaccine, unspecified formulation Suhas P Kuns Work Phone: [facility] Work Phone: 03-09-2016 pneumococcal conjuga te vaccine, 13 valent Suhas Dalton Mayos Work Phone: [facility] Work Phone: 04-07-2015 influenza, injectabl e, quadrivalent, contains preservative Suhas P Kuns Work Phone: [facility] Work Phone: 03-09-2015 influenza virus vaccine, unspecified formulation Suhas P Ugo Work Phone: [facility] Work Phone: 04-05-2014 influenza, seasonal, injectable, preservative free Suhas P Gaels Work Phone: [facility] Work Phone: 03-09-2014 influenza virus vaccine, whole virus Suhas Garrett Work Phone: [facility] Work Phone: 03-23-2013 influenza, seasonal, injectable Suhas P Kuns Work Phone: [facility] Work Phone: 03-09-2013 influenza virus vaccine, unspecified formulation Suhas P Kuns Work Phone: [facility] Work Phone: 04-14-2012 influenza, injectabl e, quadrivalent, contains preservative Suhas Kuns Other [facility] [employer] Other 06-09-2011 influenza virus vaccine, unspecified formulation Suhasraquel Garrett Work Phone: [facility] Work Phone: 06-09-2010 influenza virus vaccine, unspecified formulation Suhasraquel Garrett Work Phone: [facility] Work Phone: 06-09-2009 influenza virus vaccine, unspecified formulation Suhas Garrett Work Phone: [facility] Work Phone: 05-30-2009 novel [id number], preservative-free, injectable Suhasraquel Garrett Work Phone: [facility] Work Phone: 10-19-2007 varicella virus vaccine Belkys Garrett Work Phone: [facility] Work Phone: 06-09-2006 pneumococcal polysaccharide vaccine, 23 valent Suhas Garrett Work Phone: [facility] Work Phone: Payers Date Payer Category Payer Self-pay 2022 Managed Care (Private) [facility] [id number] 2022 Private Health Insurance [id number] 2001 Medicare [id number] 2001 Unknown 1959 Medicare [id number] 1959 Private Health Insurance [id number] 1936 Unknown [id number] [id number]. 2.593 1936 Unknown [id number] [id number]. 2.356 1936 Unknown [id number] 2.840.1.991148.3.579. 2.356 1936 Unknown [id number] 2.840.1.228511.3.579. 2.1068 1936 Unknown [id number] 2.840.1.224127.3.579. 2.1246 1936 Unknown [id number] 2.840.1.528640.3.579. 2.1246 1936 Unknown [id number] 2.840.1.316203.3.579. 2.1244 1936 Unknown [id number] 2.840.1.340756.3.579. 2.1244 1936 Unknown [id number] 2.840.1.429059.3.579. 2.1244 1936 Unknown [id number] 2.840.1.988452.3.579. 2.196 1936 Unknown [id number] 2.16840.1.194783.3.579. 2.196 1936 Unknown [id number] 2.16840.1.270537.3.579. 2.196 Unknown [id number] 2.16840.1.016136.3.579. 2.531 Unknown [id number] 2..840.1.928129.3.579. 2.531 Unknown [id number] 2.16.840.1.879663.3.579. 2.531 Unknown [id number] [id number]. 2.531 Social History Date Type Detail Facility Unknown if ever smoked [facility] [employer] Other Start: 06-19-2023 End: 01-14-2025 Sex Assigned At [facility] [employer] Other Start: 06-19-2023 End: 01-14-2025 Caffeine use Caffeine use [facility] Work Phone: Start: 06-19-2023 Tobacco smoking stat us MTIS Never smoked tobacco [facility] Work Phone: Start: 06-19-2023 Tobacco use and exposure Smokeless tobacco non-user [facility] Work Phone: Start: 1935 [facility] Start: 06-09-2023 End: 04-16-2024 Exposure to SARS-CoV-2 (event) Not sure [facility] Start: 04-16-2024 End: 01-14-2025 Alcoholic beverage intake Current drinker of alcohol (finding) [facility] Work Phone: Start: 05-03-2022 Sex Female [facility] Clinical Notes 02-15-2015 to 01-14-2025 Shy Wolf [...] discussion and plan. documented in this encounter [facility] Work Phone: 01-14-2025 Instructions Richelle [...] be sent through Care Everywhere.Heart Healthy Diet (Upper Sor[place])documented in this encounter [facility] Work Phone: 12-07-2024 History of [...] documented in patient record. Reuben Burns MSN, CLINICAL TRIAL ASSISTANT-SOFTWARE ASSET MANAGER, PMHNP-[facility] [employer] [place], [place] Please excuse any errors in grammar or translation related to this dictation. Voice recognition software was utilized to prepare this document. documented in this encounter [facility] Work Phone: 12-07-2024 Instructions JENNYFER [...] Wolf as scheduled documented in this encounter [facility] Work Phone: 12-07-2024 Miscellaneous Notes Addended by: REUBEN BURNS on: 12/08/2024 02:08 PM Modules accepted: Orders documented in this encounter [facility] Work Phone: 12-07-2024 Note Addended by: REUBEN BURNS on: 12/08/2024 02:08 PM Modules accepted: Orders [facility] Work Phone: 04-16-2024 History of [...] discussion and plan. documented in this encounter [facility] Work Phone: 04-16-2024 Instructions Sherin [...] month follow up documented in this encounter [facility] Work Phone: 07-18-2023 Evaluation note Encounter Date Diagnosis Assessment Notes Jul, PMR (polymya lgia rheumati ca) (ICD-10 - M35.3) [employer] Other 02-06-2024 Evaluation note* Encounter Date Diagnosis Assessment Notes Treatment Notes Treatment Clinical Notes Jul, PMR (polymyalgia rheumatica) (ICD-10 - M35.3) [employer] Other 02-01-2024 Evaluation note* Encounter Date Diagnosis Assessment Notes Treatment Notes Treatment Clinical Notes Jul, Hypothyroidism (ICD-10 - E03.9) [employer] Other 01-29-2024 Evaluation note* Encounter Date Diagnosis Assessment Notes Treatment Notes Treatment Clinical Notes Jun, Hypothyroidism (ICD- 10 - E03.9) Jun, Hyperthyroidism (ICD-10 - E05.90) [employer] Other 01-26-2024 Evaluation note* Encounter Date Diagnosis [...] medications in combination with eachother. Also discussed residential steriod use in regards to her condition. [...] requires sooner she is welcome to call. [employer] Other 01-11-2024 Evaluation note* Encounter Date Diagnosis Assessment Notes Treatment Notes Treatment Clinical Notes Jun, PMR (polymyalgia rheumatica) (ICD-10 - M35.3) [employer] Other 01-11-2024 History of Present illness Narrative* [...] is being tapered gradually Shy Wolf MD, [facility] Review of Systems All other [...] Wolf MD. [facility] Work Phone: [phone] 263-648901-11-2024 Instructions* Patient Instructions* Yevgeniy Cortez MA - [...] your visit. [facility] Work Phone: [phone] Evaluation note* Encounter Date Diagnosis Assessment Notes [...] recommend the patient get the RSV vaccine. [employer] Other 12-20-2023 Evaluation note* Encounter Date Diagnosis Assessment Notes Treatment Notes Treatment Clinical Notes May, Hypertension (ICD-10 - I10) May, Hypothyroidism (ICD-10 - E03.9) [employer] Other 11-10-2023 Evaluation note* Encounter Date Diagnosis Assessment Notes Treatment Notes Treatment Clinical Notes Apr, PMR (polymyalgia rheumatica) (ICD-10 - M35.3) [employer] Other 09-22-2023 Evaluation note* Encounter Date Diagnosis Assessment Notes Treatment Notes Treatment Clinical Notes Feb, PMR (polymyalgia rheumatica) (ICD-10 - M35.3) She was encouraged to take 2.5mg daily. Patient is agreeable. Feb, Hypertension (ICD-10 - I10) Blood pressure is satisfactory, she is to follow with cardiology as scheduled. [employer] Other 08-21-2023 Evaluation note* Encounter Date Diagnosis Assessment Notes Treatment Notes Treatment Clinical Notes Jan, Hypertension (ICD-10 - I10) [employer] Other 06-30-2023 Evaluation note* Encounter Date Diagnosis [...] this is due to the [facility]. She will see Dr. Wolf in three weeks therefore was advised to make sure she discusses the swelling with him and see what he would like to do. Patient is agreeable. [employer] Other 04-14-2023 Evaluation note* Encounter Date Diagnosis [...] tablets daily. We will continue to monitor. [employer] Other 03-08-2023 Evaluation note* Encounter Date Diagnosis Assessment Notes Treatment Notes Treatment Clinical Notes Aug, PMR (polymyalgia rheumatica) (ICD-10 - M35.3) [employer] Other 02-13-2023 Evaluation note* Encounter Date Diagnosis [...] states she has an upcoming appointment with chart calculator and she will discuss making medication changes at that time. [employer] Other 11-09-2022 Evaluation note* Encounter Date Diagnosis [...] can cut Apr, Hyperlipidemia (ICD-10 - E78.5) [employer] Other 11-02-2022 Evaluation note* Encounter Date Diagnosis Assessment Notes Treatment Notes Treatment Clinical Notes Apr, PMR (polymyalgia rheumatica) (ICD-10 - M35.3) [employer] Other 10-26-2022 Evaluation note* Encounter Date Diagnosis Assessment Notes Treatment Notes Treatment Clinical Notes Mar, Lumbar back pain (ICD-10 - M54.50) [employer] Other 09-20-2022 Evaluation note* Encounter Date Diagnosis Assessment Notes Treatment Notes Treatment Clinical Notes Feb, Elevated liver function tests (ICD-10 - R79.89) [employer] Other 09-16-2022 Evaluation note* Encounter Date Diagnosis Assessment Notes Treatment Notes Treatment Clinical Notes Feb, Acute pain of left shoulder (ICD-10 - M25.512) [facility] report reviewed from 02/20/22 . The [...] pain (ICD-10 - R10.13) The patient advised [place] could be causing her GI upset , [...] month Bon[place] at her next office visit. [employer] Other 09-08-2022 Evaluation note* Encounter Date Diagnosis [...] (ICD-10 - M85.80) Noted on Lumbar x-ray. [employer] Other 08-05-2022 Evaluation note* Encounter Date Diagnosis Assessment Notes Treatment Notes Treatment Clinical Notes Jan, COVID-19 (ICD-10 - U07.1) [employer] Other 08-05-2022 Evaluation note* Encounter Date Diagnosis Assessment Notes Treatment Notes Treatment Clinical Notes Jan, Cough (ICD-10 - R05.9) In house covid test is positive. Treatment plan discussed in TE. [employer] Other 07-14-2022 Evaluation note* Encounter Date Diagnosis Assessment Notes Treatment Notes Treatment Clinical Notes Dec, PMR (polymyalgia rheumatica) (ICD-10 - M35.3) [employer] Other 05-27-2022 Evaluation note* Encounter Date Diagnosis Assessment Notes Treatment Notes Treatment Clinical Notes October, PMR (polymyalgia rheumatica) (ICD-10 - M35.3) [employer] Other 04-25-2022 Evaluation note* Encounter Date Diagnosis [...] The patient encourged to continue following with chart calculator annually in December as scheduled. I did forward a copy of most current blood work results . [employer] Other 04-04-2022 Evaluation note* Encounter Date Diagnosis Assessment Notes Treatment Notes Treatment Clinical Notes Sep, PMR (polymyalgia rheumatica) (ICD-10 - M35.3) Sep, Hypertension (ICD-10 - I10) [employer] Other 02-24-2022 Evaluation note* Encounter Date Diagnosis [...] if needed. We will continue to montior. [employer] Other 02-16-2022 Evaluation note* Encounter Date Diagnosis Assessment Notes Treatment Notes Treatment Clinical Notes Jul, PMR (polymyalgia rheumatica) (ICD-10 - M35.3) [employer] Other 11-30-2021 Evaluation note* Encounter Date Diagnosis Assessment Notes Treatment Notes Treatment Clinical Notes Apr, PMR (polymyalgia rheumatica) (ICD-10 - M35.3) [employer] Other 11-18-2021 Evaluation note* Encounter Date Diagnosis [...] Hypothyroidism (ICD-10 - E03.9) Blood work ordered. [employer] Other [id number] History general Narrative - Reported* Type Description Date Medical History Shingles Medical History 02-15-15-mammogram-negativ e Medical History 01/20121157-zcmylgvfmnr-nwjjre, repea t in 3 yrs Medical History 03/2017- colonoscopy- normal Medical History f/u with cardiology NO Medical History ECHO 09/2016 Surgical History Appendectomy Surgical History Gallbladder Removal Surgical History Ovarian Cyst Removal Surgical History Coccyx repair Surgical History Cataracts Bilateral Eyes Surgical History thyroidectomy Dr. Forbes 10/14/2019 Hospitalization History Childbirth x5 Hospitalization History See Above [employer] Other Evaluation noteNo [employer] Other Evaluation note* Diagnosis Aortic valve stenosis, etiology of cardiac valve disease unspecified Essential hypertension Unspecified essential hypertension Hyperlipidemia, unspecified hyperlipidemia type Never smoked any substance documented in this encounter [facility] Work Phone: Evaluation note* Diagnosis Aortic valve stenosis, etiology of cardiac valve disease unspecified- Primary Essential hypertension Unspecified essential hypertension Hyperlipidemia, unspecified hyperlipidemia type Never smoked any substance BMI 26.0-26.9,adult Hypothyroidism, unspecified type documented in this encounter [facility] Work Phone: Evaluation note* Diagnosis Nonrheumatic aortic valve stenosis Aortic valve stenosis, etiology of cardiac valve disease unspecified documented in this encounter [facility] Work Phone: Evaluation note* Diagnosis 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- Primary BMI 26.0-26.9,adult documented in this encounter [facility] Work Phone: Evaluation note* Diagnosis Aortic valve stenosis, etiology of cardiac valve disease unspecified documented in this encounter [facility] Work Phone: Evaluation note* Diagnosis Nonrheumatic aortic valve stenosis- Primary 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 Hyperlipidemia, unspecified hyperlipidemia type PMR (polymyalgia rheumatica) (Multi) Polymyalgia rheumatica Hypothyroidism, unspecified type BMI 27.0-27.9,adult Never smoked any substance Overweight documented in this encounter [facility] Work Phone: Reason for visit Narrative* CV Imaging (Routine) - Authorized Specialty Diagnoses / Procedures Referred By Contac t Referred To Contact Cardiology Diagnoses Aortic valve stenosis, etiology of cardiac valve disease unspecified Procedures Transthoracic Echo Complete FL ECHO TTHRC R-T 2D W/WOM-MODE COMPL SPEC&COLR D Shy Wolf MD [address] [place] [address] Phone: tel: fax: Referral ID Status Reason Start Date Expiration Date Visits Requested Visits Authorized [id number] Authorized Perform Procedure 04/16/2024 04/16/2025 1 1 [facility] Work Phone: Chief Complaint * [...] being tapered gradually * Shy Wolf MD, [facility] * LAVONNE VILLATORO is being seen for [...] being tapered gradually * Shy Wolf MD, [facility] Family History No Family History [...] rhe umatica) (M35.3) Referral Organization [facility] Family [facility] [place] Referring Provider First Name Suhas Referring Provider Last Name Ugo Referring Provider Specialty Family Prac sukhjinder Referred Organization [facility] Referred Address [address] [place] [place], [place],[address] Referred Provider Specialty Rheumatology Referral Priority Routine General Notes Zaida Tinsley 10:11:01 AM >received today, completed referral form and faxed to their referring physicians department. Patient will be contacted by the CC to schedule her appointment. Specialty Diagnoses / Procedures Referred By Alberto t Referred To Contact Cardiology Diagnoses Aortic valve stenosis, etiology of cardiac valve disease unspecified Procedures Transthoracic Echo (TTE) Complete FL ECHO TTHRC R-T 2D W/WOM-MODE COMPL SPEC&COLR D Shy Wolf MD [address] [place] [address], [address] [address] Referral ID Status Reason Start Date Expiration Date Visits Requested Visits Authorized [id number] Pending Review Perform Procedure 06/19/2023 06/18/2024 1 1 Specialty Diagnoses / Procedures Referred By Alberto t Referred To Contact Cardiology Diagnoses Aortic valve stenosis, etiology of cardiac valve disease unspecified Procedures Follow Up In Cardiology Shy Wolf MD [address] [place], [place] [address]er [facility] 2, [address] [address] Shy Wolf MD [address] [place] [address] 2, [address] [address] Referral ID Status Reason Start Date Expiration Date V isits Requested Visits Authorized [id number] Authorized 06/19/2023 06/18/2024 1 1 Additional Source Comments REASON FOR VISIT (unrecogniz ed section and content) Reason Comments Follow-up 9 month, echocardiog taz results Specialty Diagnoses / Procedures Referred By Contac t Referred To Contact Cardiology Diagnoses Aortic valve stenosis, etiology of cardiac valve disease unspecified Procedures Follow Up In Cardiology Shy Wolf MD [address] [place] [address], [address] [address] Phone: tel: fax: Shy Wolf MD [address] [place] [address], [address] [address] Phone: tel: fax: Referral ID Status Reason Start Date Expiration Date V isits Requested Visits Authorized [id number] Authorized 04/16/2024 04/16/2025 1 1 Reason Comments Follow-up 6m Reason Comments Follow-up 9m Referral ID Status Reason Start Date Expiration Date V isits Requested Visits Authorized [id number] Authorized 06/19/2023 06/18/2024 1 1 Specialty Diagnoses / Procedures Referred By Contac t Referred To Contact Cardiology Diagnoses Nonrheumatic aortic valve stenosis Procedures Transthoracic Echo (TTE) Complete FL ECHO TRANSTHORC R-T 2D W/WO M-MODE REC F-UP/LMTD FL DOP ECHOCARD COLOR FLOW VELOCITY MAPPING FL DOP ECHOCARD PULSE WAVE W/SPECTRAL F-UP/LMTD STD Shy Wolf MD [address] [place] [address], [address] [address] Referral ID Status Reason Start Date Expiration Date Visits Requested Visits Authorized [id number] Authorized Perform Procedure 03/03/2023 08/30/2023 1 1 Reason Comments Pre-op Clearance POC for spinal cord stimulator, scheduled 12.13.[address] Weston. INFORMATION SOURCE (unrecogn ized section and content) DATE CREATED AUTHOR 03/06/2022 [facility] DATE CREATED AUTHOR AUTHOR'S ORGANIZ ATION 12/25/2022 [facility] DATE CREATED AUTHOR AUTHOR'S ORGANIZ ATION 12/25/2022 [facility] DATE CREATED AUTHOR AUTHOR'S ORGANIZ ATION 03/03/2023 [facility] DATE CREATED AUTHOR AUTHOR'S ORGANIZ ATION 07/29/2024 [facility] DATE CREATED AUTHOR AUTHOR'S ORGANIZ ATION 12/25/2024 [facility] DATE CREATED AUTHOR AUTHOR'S ORGANIZ ATION 01/16/2025 [facility] DATE CREATED AUTHOR AUTHOR'S ORGANIZ ATION 02/23/2025 [facility] Care Teams (unrecognized sec tion and content) [employer] Relationship Specialty Start Date End Date Suhas Garrett DO PCP - General 06/09/99 [employer] Relationship Specialty Start Date End Date Suhas Garrett DO [address] [place] [address] PCP - General Family Medicine 01/30/24 [employer] Relationship Specialty Start Date End Date Suhas Garrett DO [address] [place] [address] PCP - General Family Medicine 01/30/24 [employer] 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 [employer] provides no warranty or guarantee of the accuracy or completeness of information in this document.
[2025-03-28 23:51] VITALS: BP 193/84; PULSE 58; TEMP 36.8; O2SAT 98; BMI 27.4
--- NOTE | 2025-03-29 00:06 | XR_ITS ---
The [address] [address] Patient Name: LAVONNE VILLATORO MRN: [id number] date: 1935 Sex: F Assigned Patient Location: ER Current Patient Location: Accession/Order Number: [id number] Exam Date: 03/29/2025 00:40 Report Date: 03/29/2025 08:00 At the request of: TAMMI MARTELL MD Procedure: XR thoracic spine 2V XR thoracic spine 2V 03/29/2025 12:51 AM SIGNS AND SYMPTOMS: ^Atraumatic pain PROTOCOLS: Frontal and lateral radiographs of the thoracic spine COMPARISON: None FINDINGS: The bones are in anatomic alignment with preservation of vertebral body heights. There is mild intervertebral disc height loss in the lower thoracic spine. No evidence of fracture or bony destructive lesion. There is evidence of prior cholecystectomy. XR/XR thoracic spine 2V IMPRESSION: Mild disc degenerative changes are noted in the lower thoracic spine. No fracture or subluxation. Impression dictated by: Lui Álvarez M.D. 03/29/2025 8:00 AM Dictation Location: [place] [address] Electronically authenticated by: [id number] Y Date: 03/29/2025 08:00
--- NOTE | 2025-03-29 00:07 | ED.GENADUL1 ---
HPI HPI - General Adult General Chief complaint: Back Pain/Injury Stated complaint: PAIN IN BACK Time Seen by Provider: 03/29/25 00:00 Source: patient Mode of arrival: walk-in Limitations: no limitations History of Present Illness HPI narrative: 89-year-old female presents for back pain. She points to the lower thoracic region to indicate where the area is now. There is no history of trauma. Last week she received her flu vaccine and she states the next day her shoulder started hurting and now its moved down into the lower thoracic region. She does not have any pain in her lower back or in the chest pain or neck pain. She is scheduled to get a spinal cord stimulator soon, she has spinal stenosis. Related Data Home Medications ?Medication ?Instructions ?Recorded ?Confirmed aspirin 81 mg capsule 81 mg PO DAILY 08/25/23 03/24/25 carvedilol 6.25 mg tablet 6.25 mg PO Q12H 08/25/23 03/24/25 levothyroxine 100 mcg tablet 100 mcg PO DAILY 08/25/23 03/24/25 lorazepam 0.5 mg tablet 0.5 mg PO Q8H PRN anxiety 10/25/24 03/24/25 acetaminophen 650 mg 1,300 mg PO Q12H PRN pain 11/29/24 03/24/25 tablet,extended release amlodipine 5 mg tablet 5 mg PO DAILY 11/29/24 03/24/25 losartan 100 1 tab PO DAILY 11/29/24 03/24/25 mg-hydrochlorothiazide 25 mg tablet multivitamin (Daily Multi-Vitamin 1 tab PO DAILY 11/29/24 03/24/25 tablet) prednisone 10 mg tablet 7.5 mg PO DAILY 11/29/24 03/24/25 gabapentin 300 mg capsule 300 mg PO Q8H 02/08/25 03/24/25 Previous Rx's ?Medication ?Instructions ?Recorded methocarbamol 500 mg tablet 500 mg PO Q8H PRN pain #20 tabs 03/29/25 Allergies Allergy/AdvReac Type Severity Reaction Status Date / Time amoxicillin Allergy Mild Rash Verified 03/24/25 10:44 divalproex sodium (From Allergy Unknown hair loss Verified 03/24/25 10:44 Depakote) hydrocodone Allergy Unknown Rash Verified 03/24/25 10:44 phenytoin (From Dilantin) Allergy Unknown Rash Verified 03/24/25 10:44 alendronate sodium (From AdvReac eye pain Verified 03/24/25 10:44 Fosamax) Opioid HPI Opioid Management Most Recent Opioid Data: Last Pain Scale 6 Today, 00:52 Last MAR Pain Assessment Today, 00:52 Review of Systems ROS Narrative A ten point review of systems is negative except as noted above. [facility] Medical History 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 ?I10 - Essential (primary) hypertension (ICD-10) Lumbar stenosis with neurogenic claudication ?M48.062 - Spinal stenosis, lumbar region with neurogenic claudication (ICD-10) Back pain ?M54.9 - Dorsalgia, unspecified (ICD-10) Shoulder pain ?M25.519 - Pain in unspecified shoulder (ICD-10) Seizures (1987) ?R56.9 - Unspecified convulsions (ICD-10) Heartburn ?R12 - Heartburn (ICD-10) Cataract ?H26.9 - Unspecified cataract (ICD-10) Hepatic lesion ?K76.9 - Liver disease, unspecified (ICD-10) Insomnia ?G47.00 - Insomnia, unspecified (ICD-10) Lung density on x-ray ?J98.4 - Other disorders of lung (ICD-10) Multinodular thyroid ?E04.2 - Nontoxic multinodular goiter (ICD-10) Hypothyroidism (acquired) ?E03.9 - Hypothyroidism, unspecified (ICD-10) Hyperlipidemia ?E78.5 - Hyperlipidemia, unspecified (ICD-10) Aortic stenosis ?I35.0 - Nonrheumatic aortic (valve) stenosis (ICD-10) Polymyalgia rheumatica ?M35.3 - Polymyalgia rheumatica (ICD-10) Hyperthyroidism ?E05.90 - Thyrotoxicosis, unspecified without thyrotoxic crisis or storm (ICD-10) Heart murmur ?R01.1 - Cardiac murmur, unspecified (ICD-10) HTN (hypertension) ?I10 - Essential (primary) hypertension (ICD-10) Surgical History S/P epidural steroid injection ?Z92.241 - Personal history of systemic steroid therapy (ICD-10) History of cataract extraction with lens replacement H/O excision of mass ?Z98.890 - Other specified postprocedural states (ICD-10) H/O colonoscopy ?Z98.890 - Other specified postprocedural states (ICD-10) 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 - Postprocedural hypothyroidism (ICD-10) Hx of cholecystectomy ?Z90.49 - Acquired absence of other specified parts of digestive tract (ICD-10) History of ovarian cystectomy ?Z98.890 - Other specified postprocedural states (ICD-10) ?Z87.42 - Personal history of other diseases of the female genital tract (ICD-10) History of appendectomy ?Z90.49 - Acquired absence of other specified parts of digestive tract (ICD-10) Family History Other Family history of DVT Family history of aneurysm Family history of cancer Family history of diabetes mellitus Family history of heart disease Social History Within the past year, how often did you have a drink containing alcohol: monthly or less Smoking status: Never smoker Non-prescribed substance use: denies use Highest level of school completed/degree received: high school graduate Little interest or pleasure in doing things: not at all Feeling down, depressed, or hopeless: not at all Exam Narrative Exam Narrative: Nurses note and vital signs reviewed General:The patient appears in no acute distress and is sitting on the examination chair Skin:Warm, dry, no pallor noted.There is no rash noted. Head:Normocephalic, atraumatic Eye: Normal conjunctiva, no drainage Ears, Nose, Mouth, and Throat: oral mucosa is moist. Nares patent. Cardiovascular:Regular Rate and Rhythm Respiratory:Patient is in no distress, no accessory muscle use, lungs are clear to auscultation, no wheezing, rales or rhonchi Back: No bruise or rash present. Cervical and lumbar spines are nontender. The thoracic area is examined and she seems to be having discomfort in the lower thoracic region. There is no palpable tenderness there. GI: Soft and nontender Musculoskeletal: The patient has no evidence of calf tenderness, no pitting edema, symmetrical pulses noted bilaterally Neurological:A&O, normal speech Psychiatric:Cooperative Constitutional Vital Signs, click to edit/add: Last Vital Signs Temp 98.2 F 03/28/25 23:51 Pulse 58 L 03/28/25 23:51 Resp 18 03/28/25 23:51 BP 193/84 H 03/28/25 23:51 Pulse Ox 98 03/28/25 23:51 O2 Del Method Room Air 03/28/25 23:51 Course Vital Signs Vital signs: Vital Signs Temperature 98.2 F 03/28/25 23:51 Pulse Rate 58 L 03/28/25 23:51 Respiratory Rate 18 03/28/25 23:51 Blood Pressure 193/84 H 03/28/25 23:51 Pulse Oximetry 98 03/28/25 23:51 Oxygen Delivery Method Room Air 03/28/25 23:51 Temperature 98.2 F 03/28/25 23:51 Pulse Rate 58 L 03/28/25 23:51 Respiratory Rate 18 03/28/25 23:51 Blood Pressure 193/84 H 03/28/25 23:51 Pulse Oximetry 98 03/28/25 23:51 Oxygen Delivery Method Room Air 03/28/25 23:51 Medical Decision Making MDM Narrative Medical decision making narrative: Thoracic x-rays on my interpretation showed no acute findings. She seems to be feeling improved with IM Toradol and is discharged home on Robaxin. She will follow-up with her pain management doctor. Treatment diagnosis and follow-up were discussed with the patient. Differential Diagnosis Differential Diagnosis: Compression fracture, muscle strain Imaging Data Thoracic spine films: My impression: No acute findings Discharge Plan Discharge Chief Complaint: Back Pain/Injury Clinical Impression: Back pain, thoracic Patient Disposition: Home, Self-Care Time of Disposition Decision: 01:11 Condition: Good Mode of Transportation: Private Vehicle Prescriptions / Home Meds: New methocarbamol 500 mg tablet 500 mg PO Q8H PRN (Reason: pain) Qty: 20 0RF No Action carvedilol 6.25 mg tablet 6.25 mg PO Q12H levothyroxine 100 mcg tablet 100 mcg PO DAILY aspirin 81 mg capsule 81 mg PO DAILY lorazepam 0.5 mg tablet 0.5 mg PO Q8H PRN (Reason: anxiety) amlodipine 5 mg tablet 5 mg PO DAILY losartan-hydrochlorothiazide 100-25 mg tablet 1 tab PO DAILY multivitamin [Daily Multi-Vitamin] Tablet 1 tab PO DAILY prednisone 10 mg tablet 7.5 mg PO DAILY acetaminophen 650 mg tablet extended release 1,300 mg PO Q12H PRN (Reason: pain) gabapentin 300 mg capsule 300 mg PO Q8H Print Language: [place] Instructions: Thoracic Pain (ED) Referrals: Suhas Arizmendi DO [Primary Care Provider] - 1 week
[2025-03-29] MEDS: KETOROLAC TROMETHAMINE 30 MG/ML VIAL IM (00:52)
== END 2025-03-29 01:33 | disposition home or self-care (01) ==
PROVIDERS: Emergency Provider Emergency Medicine; PCP Family Medicine
DX: M54.6 Pain in thoracic spine (principal); M48.00 Spinal stenosis, site unspecified
CPT/HCPCS: 72070; 96372; 99284; J1885

== ENCOUNTER 2025-03-30 21:39 | Emergency (ER) | payer MEDICARE, OTHER, SELFPAY ==
[2025-03-30] VITALS (7 sets, daily range): BP systolic 165–198; BP diastolic 69–78; PULSE 58–63; TEMP 36.7; O2SAT 94–98; BMI 27.4
--- OUTSIDE RECORDS SUMMARY | 2025-03-30 21:56 | XMS_ITS | CCD ---
Author Organization [facility] CliniSyfl Care Team Providers Care Bodywork Therapist Name Role Phone Suhas Garrett Unavailable Suhas [...] able Suhas Garrett DO Primary Care Provider [phone] Suhas Garrett DO Primary Care Provider [phone] Suhas Garrett Primary Care Unavailable Suhas Garrett Admitting Unavailable Suhas Garrett Attending Unavailable KunSuhas arellano Attending Unavailable Suhas Garrett Primary Care Unavailable KunsSuhas Admitting Unavailable KunSuhas arellano Attending Unavailable Suhas Garrett Primary Care Unavailable KunsSuhas Admitting Unavailable KunsSuhas Attending Unavailable Suhas Garrett Primary Care Unavailable GaelsSuhas Admitting Unavailable Kuns Suhas TYLER Primary Care Provider [phone] SHY WOLF Referring Unavailable SUHAS GARRETT Primary [...] FRIEDMAN, Gloria Gautam Attending Unavailable Allergies Allergy ClassificationReported Allergen(s)Allergy TypeDate of OnsetReaction(s) Facility (20 sources)Alendronate; Translations: [Fosamax]Drug Gramunw81-55-9204DqcogkbCent[place] Repository (20 sources)Amoxicillin; Translations: [amoxicillin]Drug Otxrhgc39-95-8089zuucb [place] Qgiv Other (20 sources)Phenytoin; Translations: [Dilantin CAPS]Drug Nbwbbzy75-20-3435Ahtl [place] Qgiv Other (20 sources)Valproate; Translations: [Depakote ER TB24]Drug AllergyUnknowYakima Valley Memorial Hospital Qgiv Other (1 source)AlendronateDrug AllergyThe [facility]ository (1 source)AmoxicillinDrug AllergyAv[facility] Rep[facility] (1 source)PhenytoinDrug AllergyAvita [facility] Repository (1 source)ValproateDrug AllergyThe [facility] Repository (20 sources)Acetaminophen / HYDROcodoneDrug Allergyelevated liver enzymesMary Bridge Children'S Hospital Qgiv Other (6 sources)AlendronateDrug Hfhzzzq00-06-8798TvmxebcSt. John of God Hospital (8 sources)HYDROcodone; Translations: [HYDROCODONE]Drug Nmwwqir00-72-9624ERFlower Hospital Work Phone: (8 sources)Valproate; Translations: [VALPROIC ACID]Drug Qtnryak74-20-4204TjlncunTuscarawas Hospital Work Phone: (1 source)AcetaminophenDrug Yxftqig52-21-8177OtkxfokjfKettering [facility] Repository (1 source)AlendronateDrug Wkylnyr57-13-4435WsnougyaaKettering Health – [facility]in [facility] Repository (1 source)AmoxicillinDrug Mshcrec85-66-8249BinjfkgssKettering Health – [facility] Repository (1 source)HYDROcodoneDrug Lhbbauw32-14-5821KkrpttwxmKettering Health [facility] Repository (1 source)PhenytoinDrug Supgmaz06-59-0034MicpamcajKettering Health – [facility] Repository (1 source)ValproateDrug Vnuuuca71-32-1645FtinctuiuKettering Health – [facility]in [facility] Center Repository (5 sources)Valproate; Translations: [DIVALPROEX]Drug Occslzf33-31-6145IsvcqSamaritan Hospital Work Phone: Medications Current Medications MedicationDrug Class(es)DatesSig (Normalized)Sig (Original)8 hr acetaminophen 650 mg extended release oral tablet (3 sources)take 1 tablet by mouth every eight hours as neededacetaminophen (Tylenol 8 HOUR) 650 mg ER tablet Take 1 tablet (650 mg) by mouth every 8 hours if needed for mild pain (1 - 3). Do not crush, chew, or split. Active acetaminophen 325 mg / HYDROcodone bitartrate 5 mg oral tablet (3 sources)Opioid Agonisttake 1 tablet by mouth every six hoursHYDROcodone- Acetaminophen 5-325 MG 1 tablet as needed Orally every 6 hrs Activeaspirin 81 mg delayed release oral tablet (20 sources)Platelet Aggregation Inhibitor, Nonsteroidal Anti-inflammatory Drug take 1 tablet by mouth three times weeklyaspirin 81 mg EC tablet Take 1 tablet (81 mg) by mouth 3 (three) times a week. Activeaspirin 81 mg EC tablet Take 1 tablet (81 mg) by mouth. Activetake 1 tablet by mouth every weekAspirin 81 MG 1 tablet Orally 3 days per week Activecalcium carbonate 1500 mg / cholecalciferol 200 unt oral tablet (20 sources)Vitamin Dtake 1 tablet by mouth once daily at mealtimeCalcium + D 600-200 MG-UNIT 1 tablet with food Orally Once a day for 30 day(s) Activetake 1 tablet by mouth every twenty-four hoursCalcium + D 600-200 MG-UNIT 1 tablet with food Orally Once a day for 30 day(s) Activecarvedilol 6.25 mg oral tablet (20 sources)alpha-Adrenergic Awa, beta-Adrenergic BlockerStart: 06-25-2017 take 1 tablet by mouth twice dailycarvedilol (Coreg) 6.25 mg tablet Take 1 tablet (6.25 mg) by mouth 2 times daily (morning and late afternoon). 06/25/2021 ActiveCentrum (20 sources)Centrum as directed Orally Activegabapentin 100 mg oral capsule (3 sources)Anti-epileptic Agenttake 1 capsule by mouth three times daily gabapentin (Neurontin) 100 mg capsule Take 1 capsule (100 mg) by mouth 3 times a day. ActivehydroCHLOROthiazide 12.5 mg / losartan potassium 100 mg oral tablet (20 sources)Thiazide Diuretic, Angiotensin 2 Receptor BlockerStart: 04-25-2017 take 1 tablet by mouth once dailylosartan-hydrochlorothiazide (Hyzaar) 100-12.5 mg tablet Take 1 tablet by mouth once daily. 09/10/2021 Activeibuprofen 600 mg oral tablet (20 sources)Nonsteroidal Anti-inflammatory DrugStart: 41-75-6761bwbm 1 tablet by mouth twice daily at mealtime as neededIbuprofen 600 MG 1 tablet with food or milk as needed Orally Twice a day as needed with food Jan, ActiveStart: 04-35-2603yrkz 1 tablet by mouth three times daily at mealtime as needed Ibuprofen 600 MG 1 tablet with food or milk as needed Orally TID PRN with food Jan, Not-Takinglevothyroxine sodium 0.1 mg oral tablet (20 sources)l-ThyroxineStart: 23-82-7140aftj 1 tablet by mouth once daily levothyroxine (Synthroid, Levoxyl) 100 mcg tablet Take 1 tablet (100 mcg) by mouth once daily. 06/25/2021 ActiveSynthroid 100 MCG 1 tablet every morning on an empty stomach Orally Once a day for 90 day(s) ActiveLORazepam 0.5 mg oral tablet (3 sources)Benzodiazepinetake 1 tablet by mouth every six hours as needed LORazepam (Ativan) 0.5 mg tablet Take 1 tablet (0.5 mg) by mouth every 6 hours if needed for anxiety. Activemultivit-min/ferrous fumarate (MULTI VITAMIN ORAL) (6 sources)take 1 tablet by mouth once dailymultivit-min/ferrous fumarate (MULTI VITAMIN ORAL) Take 1 tablet by mouth once daily. Activetake 1 tablet by mouth once dailymultivit-min/ferrous fumarate (MULTI VITAMIN ORAL) Take 1 tablet by mouth once daily. 0 ActiveOmega 3 1000 MG (20 sources)take 1 capsule by mouth once dailyOmega 3 1000 MG 1 capsule with a meal Orally Once a day ActivepredniSONE 10 mg oral tablet (20 sources)Start: 44-19-8829fxxg 1 tablet by mouth once dailypredniSONE (Deltasone) 10 mg tablet Take 1 tablet (10 mg) by mouth once daily. 12/09/2024 ActiveStart: 39-16-2337uevb 2 tablets by mouth once dailypredniSONE 10 MG 2 tablets x 7 days, 1 tablet x 7 days, then 1/2 tablet or 5mg daily thereafter Orally as directed Jun, ActiveStart: 84-80-6622bcjd 1 tablet by mouth every twenty-four hourspredniSONE 20 MG 1 tablet Orally Once a day for 10 days Apr, ActiveStart: 10-24-5938kzfh 1 tablet by mouth every other day predniSONE 2.5 MG 1 tablet Orally alternating every other day with 5mg Nov, ActiveStart: 85-26-0093wkfv 1 tablet by mouth every twenty-four hours predniSONE 2.5 MG 1 tablet Orally Once a day Apr, ActiveStart: 02-07-2587kdbl 1 tablet by mouth every twenty-four hourspredniSONE 10 MG 1 tablet Orally Once a day for 90 days Apr, ActiveStart: 34-39-0203djhv 1 tablet by mouth every twenty-four hourspredniSONE 20 MG 1 tablet Orally Once a day for 30 day(s) Apr, ActiveStart: 61-47-3469uhjijiURCR 20 MG 1 tablet with food or milk Orally 1 tab twice a day x 5 days , 1 tab every day x 5days for 10 days Feb, ActiveStart: 22-30-0272akvp 1 tablet by mouth at mealtime, then take 1 tablet by mouth twice daily, then take 1 tablet by mouth once dailypredniSONE 20 MG 1 tablet with food or milk Orally 1 tab twice a day x 5 days , 1 tab once a day X 5 days Jan, ActiveStart: 40-58-6683zyns 1 tablet by mouth every other daypredniSONE 5 MG 1 tablet Orally alternating every other day with 2.5mg Apr, ActiveStart: 02-22-2020 End: 91-91-0444jkhsvfLCHV (Deltasone) 5 mg tablet Take 1 tablet (5 mg) by mouth once daily. Alternating 2.5 tab 11/02/2021 01/14/2025 Discontinued (Dose adjustment)Start: 43-21-0072ldjl 1 tablet by mouth every twenty-four hours predniSONE 2.5 MG 1 tablet Orally Once a day Feb, ActiveStart: 53-40-8510ojdb 1.5 tablets by mouth every twenty-four hourspredniSONE 5 MG 1.5 tablets Orally Once a day Feb, ActivetraMADol hydrochloride 50 mg oral tablet (5 sources)Opioid AgonistStart: 73-33-5460mofi 1 tablet by mouth every eight hourstraMADol HCl 50 MG 1 tablet as needed Orally tid Jun, ActiveStart: 17-37-8153rynh 1 tablet by mouth every twenty-four hourstraMADol HCl 50 MG 1 tablet as needed Orally Once a day Jun, ActiveTylenol Arthritis Pain 650 MG (20 sources)Tylenol Arthritis Pain 650 MG as directed Orally Not-TakingTylenol Arthritis Pain 650 MG as directed Orally Active Completed/Discontinued Medications MedicationDrug Class(es)DatesSig (Normalized)Sig (Original)amLODIPine 10 mg oral tablet (20 sources)Dihydropyridine Calcium Channel BlockerStart: 80-56-6517tizr 1 tablet by mouth every twenty-four hoursNorvasc 5 MG 1 tablet Orally Once a day for 90 day(s) May, ActiveStart: 06-03-2017 End: 85-48-8619wjmq 1 tablet by mouth once dailyamLODIPine (Norvasc) 10 mg tablet Take 1 tablet (10 mg) by mouth once daily. 12/13/2021 12/07/2024 D iscontinued (Dose adjustment)calcium carbonate 1500 mg oral tablet (11 sources) End: 75-11-4022wkab 1 tablet by mouth once dailycalcium carbonate 600 mg calcium (1,500 mg) tablet Take 1 tablet (1,500 mg) by mouth once daily. 12/07/2024 Discontinued (Therapy completed)Calcium 600 MG TABS TAKE 1 TABLET DAILY. Quantity: 0 Refills: 0 Ordered: 13-Dec-2021 DO Activedocosahexaenoic acid 120 mg / eicosapentaenoic acid 180 mg oral capsule (3 sources)take 1 capsule by mouth once dailyOmega-3 Fish Oil 1000 MG Oral Capsule TAKE 1 CAPSULES BY MOUTH DAILY Quantity: 360 Refills: 0 Ordered: 24-Dec-2022 DO ActiveFish Oils (4 sources) End: 37-90-5358ejoz 1 capsule by mouth once dailyomega-3 (Fish Oil) 60-90-500 mg capsule Take 1 capsule (500 mg) by mouth once daily. 12/07/2024 Discontinued (Therapy completed)take 1 capsule by mouth once dailyomega-3 (Fish Oil) 60-90-500 mg capsule Take 1 capsule (500 mg) by mouth once daily. Activetake 1 capsule by mouth once dailyomega-3 (Fish Oil) 60-90-500 mg capsule Take 1 capsule (500 mg) by mouth once daily. 0 Activelidocaine 0.05 mg/mg medicated patch (9 sources)Antiarrhythmic, Amide Local AnestheticLidocaine 5 % 1 patch remove after 12 hours Externally Once a day Not-Takingmelatonin 5 mg oral tablet (20 sources)Start: 94-62-9386mpke 1 tablet by mouth every twenty-four hours Melatonin 5 MG 1 tablet in the evening Orally Once a day Sep, Not-Taking/PRNmethylPREDNISolone (20 sources)CorticosteroidStart: 44-78-4214IXTO-MEDROL 41 - 125 mg Jan, 125 mgMulti Vitamin Oral Tablet (7 sources)take 1 tablet by mouth once dailyMulti Vitamin Oral Tablet TAKE 1 TABLET DAILY. Quantity: 0 Refills: 0 Ordered: 13-Dec-2021 DO ActiveOmega 3 500 CAPS (4 sources)Butler 3 500 CAPS TAKE 1 CAPSULE Daily Quantity: 0 Refills: 0 Ordered: 13-Dec-2021 DO Activeoxycodone HCl/acetaminophen (OXYCODONE-ACETAMINOPHEN ORAL) (2 sources)Start: 02-23-2024 End: 31-51-9499izjgonohf HCl/acetaminophen (OXYCODONE-ACETAMINOPHEN ORAL) Take by mouth. 02/23/2024 12/07/2024 Discontinued (Therapy completed)Start: 59-82-5098ciotstkfw HCl/acetaminophen (OXYCODONE-ACETAMINOPHEN ORAL) Take by mouth. 02/23/2024 ActivetraZODone hydrochloride 50 mg oral tablet (16 sources)Serotonin Reuptake InhibitorStart: 16-01-2363vdji 1 tablet by mouth every twenty-four hourstraZODone HCl 50 MG 1 tablet at bedtime as needed Orally Once a day prn Jul, Not-Taking/PRN Problems Active Problems Problem ClassificationProblemDateDocumented DateEpisodic/ChronicAbdominal pain (20 sources)Generalized abdominal pain; Translations: [Generalized abdominal pain]Onset: 02-22-2022 Resolved: 64-83-9778CirynnbfRmnlorxzkuemgc/social admission (20 sources)Advance directive discussed with patient; Translations: [Other specified counseling]EpisodicCoronary atherosclerosis and other heart disease (20 sources)Coronary arteriosclerosis; 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 [place] coronary artery without angina pectoris]Onset: 09-03-2023 ChronicDisorders of lipid metabolism (20 sources)Hyperlipidemia; Translations: [Hyperlipidemia, unspecified]Onset: 04-26-2021 Resolved: 06-05-7658KihdzfwPjdpwpfff hypertension (20 sources)Hypertensive disorder; Translations: [Essential (primary) hypertension]Onset: 09-10-2021 Resolved: 50-93-6556ZwphrizVnehl valve disorders (20 sources)Aortic valve stenosis; Translations: [Aortic valve disorders]Onset: 43-29-0453NbzvwjsFokzipteofb deficiencies (1 source)Vitamin D deficiency, unspecified; Translations: [Vitamin D deficiency, unspecified]Onset: 79-65-2972BlownqjBwuiyxbkzfgd (1 source)Osteoporosis; Translations: [Age-related osteoporosis without current pathological fracture]ChronicOther aftercare (1 source)Other alf (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; Translations: [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]Onset: 51-60-2293TvnhhqulSoxlq bone disease and musculoskeletal deformities (20 sources)Pain of left shoulder blade; Translations: [Other specified disorders of bone, shoulder]EpisodicOther bone disease and musculoskeletal deformities (20 sources)Osteopenia; Translations: [Other specified disorders of bone density and structure, multiple sites]EpisodicOther circulatory disease (20 sources)Cardiovascular symptoms; Translations: [Other specified symptoms and signs involving the circulatory and respiratory systems]EpisodicOther connective tissue disease (20 sources)Polymyalgia rheumatica; Translations: [Polymyalgia rheumatica]Onset: 750687-05-0438AfkxeihLzieg connective tissue disease (20 sources)Polymyalgia rheumatica; Translations: [Polymyalgia rheumatica]Onset: 04-26-2021 Resolved: 00-93-4021EcskriyOmflg connective tissue disease (1 source)Other muscle spasm; Translations: [OTHER MUSCLE SPASM]Onset: 18-26-4875StkpoudaVvknk liver diseases (20 sources)Disease of liver; Translations: [Liver disease, unspecified]Chronic Other lower respiratory disease (20 sources)Radiologic increased density of lung; Translations: [Other disorders of lung]EpisodicOther non-epithelial cancer of skin (20 sources)Basal cell carcinoma of skin; Translations: [Basal cell carcinoma of skin, unspecified]EpisodicOther non-traumatic joint disorders (6 sources)Pain in left shoulder; Translations: [PAIN IN LEFT SHOULDER]Onset: 02-20-2022 Resolved: 96-09-5182ExorivxsGvnge non-traumatic joint disorders (20 sources)Shoulder pain; Translations: [Pain in left shoulder]EpisodicOther nutritional; endocrine; and metabolic disorders (14 sources)Overweight in adulthood with body mass index of 25 or more but less than 30; Translations: [Overweight]Onset: 788615-30-9081CqiipngoTigkk nutritional; endocrine; and metabolic disorders (1 source)Overweight; Translations: [Overweight]40-56-1405XudmylfmVbtdv nutritional; endocrine; and metabolic disorders (2 sources)Body mass index (BMI) 27.0-27.9, adult; Translations: [Body mass index (BMI) 27.0-27.9, adult]Onset: 45-53-9184XtzyjfskBogso screening for suspected conditions (not mental disorders or infectious disease) (20 sources)Other specified abnormal findings of blood chemistry; Translations: [Elevated liver function tests]Onset: 02-26-2022 Resolved: 38-63-6768ErggkybtZvuvapcu codes; unclassified (20 sources)Insomnia; Translations: [Insomnia, unspecified]EpisodicResidual codes; unclassified (20 sources)Family history of malignant neoplasm of gastrointestinal tract; Translations: [Family history of malignant neoplasm of digestive organs]Episodic Residual codes; unclassified (20 sources)Difficulty sleeping ; Translations: [Sleep disorder, unspecified] EpisodicResidual codes; unclassified (3 sources)Insomnia, unspecifiedOnset: 10-01-2021 Resolved: 82-47-2831KrogzlliQekragtn codes; unclassified (9 sources)Never smoked any substance; Translations: [Other specified health status]Onset: 110306-29-7120YwnzlpxhXaaclkkt codes; unclassified (2 sources)Other specified health status; Translations: [Other specified health status]Onset: 13-50-2344JdjgbpzkTxeoccsxpmt; intervertebral disc disorders; other back problems (13 sources)Low back pain; Translations: [Lumbar back pain]EpisodicSprains and strains (20 sources)Strain of muscle and/or tendon of lower leg; Translations: [Strain of unspecified muscle and tendonat ankle and foot level, left foot, subsequent encounter]EpisodicThyroid disorders (20 sources)Hypothyroidism; Translations: [Hypothyroidism, unspecified]Onset: 04-26-2021 Resolved: 96-71-1004Citnrcc Past or Other Problems Problem ClassificationProblemDateDocumented DateEpisodic/ChronicConditions associated with dizziness or vertigo (2 sources)Dizziness and giddiness; Translations: [Dizziness and giddiness] Onset: 02-14-2022 Resolved: 94-68-3541UpikfewgHzphw valve disorders (20 sources)Heart murmur; Translations: [Cardiac murmur, unspecified]Onset: 10-01-2021 Resolved: 67-59-9877PnvradjiAizsw acquired deformities (1 source)Spondylolisthesis, lumbar regionOnset: 02-14-2022 Resolved: 61-54-9408SbjsginwUmjgu bone disease and musculoskeletal deformities (1 source)Other specified disorders of bone density and structure, unspecified siteOnset: 02-14-2022 Resolved: 29-16-0865JjmigcxjImekx bone disease and musculoskeletal deformities (1 source)Other specified disorders of bone, shoulderOnset: 02-22-2022 Resolved: 85-05-8043IookovitBtovv bone disease and musculoskeletal deformities (1 source)Other specified disorders of bone density and structure, multiple sitesOnset: 02-22-2022 Resolved: 76-29-9133LuivtxenZmnir circulatory disease (20 sources)Carotid bruit; Translations: [Other symptoms involving cardiovascular system]Onset: 06-04-2023 Resolved: 093256-47-8239ZobsybjyUqkdb circulatory disease (1 source)Other specified symptoms and signs involving the circulatory and respiratory systems; Translations:[Other specified symptoms and signs involving the circulatory and respiratory systems]Onset: 35-26-8461UztjijbaPmuog liver diseases (1 source)Abnormal levels of other serum enzymes; Translations: [Abnormal levels of other serum enzymes]Onset: 22-04-2139CczsxsxsSwnwv nutritional; endocrine; and metabolic disorders (2 sources)Body mass index (BMI) 26.0-26.9, adult; Translations: [Body mass index (BMI) 26.0-26.9, adult]Onset: 58-69-5229FgmudnqbSweaq skin disorders (1 source)Localized swelling, mass and lump, headOnset: 04-26-2021 Resolved: 09-36-3882IwdocpvuMdjxsogz codes; unclassified (1 source)Sleep disorder, unspecifiedOnset: 08-02-2021 Resolved: 68-49-8623ZhlxtghwFblclvbu codes; unclassified (1 source)Asymptomatic menopausal stateOnset: 02-14-2022 Resolved: 41-62-6128VvzwgqciUyegwujgwqgd (7 sources)Never smoked tobacco; Translations: [Never smoker]Unclassified (1 source)Cough R05.9Onset: 01-11-2022 Resolved: 24-73-9653Avynvustutbg (3 sources)Lumbar back pain M54.50Onset: 02-14-2022 Resolved: 14-01-3672Iwevftrqqnrm (1 source)History of COVID-19 Z86.16Onset: 02-14-2022 Resolved: 64-44-2014Vmihtyelozsv (10 sources)Lumbar back pain; Translations: [Lumbar back pain]Unclassified (1 source)Vaccine counseling Z71.85Unclassified (6 sources)Onset: 06-19-2023 Resolved: Viral infection (20 sources)Disease caused by 2019-nCoV; Translations: [COVID-19]Onset: 01-11-2022 Resolved: 01-11-2022 Results Test NameValueInterpretationReference RangeFacilityTRANSTHORACIC ECHO (TTE) COMPLETEon 12-23-0225GKCNSUFWQTHSJ ECHO (TTE) COMPLETENortOur Community Hospital [address], [address], [place] [address] TRANSTHORACIC ECHOCARDIOGRAM REPORT Patient Name: LAVONNE VILLATORO Reading Physician: [id number] Shy Wolf MD, [facility] Study Date: 12/21/2024 Ordering Provider: [id number] SHY WOLF MRN/PID: [id number] Fellow: Nurse: Date of /Age: 3 1935 / years Exchange Administrator: Sheridan Lemus RDCS, T Gender Assigned at F Additional Staff: : Height: 157.48 cm Admit Date: Weight: 65.77 kg Admission Status: Outpatient BSA / BMI: 1.67 m2 / 26.52 Department Location: [facility] kg/m2 [place] Blood Pressure: 146 /68 mmHg Study Type: TRANSTHORACIC ECHO (TTE) COMPLETE Diagnosis/ICD: Nonrheumatic aortic (valve) stenosis-I35.0 Indication: HTN, Hyperlipidemia, 2/6 Systolic Murmur, Hypothyroid CPT Codes: Echo Complete w Full Doppler-20911 Study Detail: The following Echo studies were performed: 2D, M-Mode, Doppler and color flow. PHYSICIAN INTERPRETATION: Left Ventricle: Left ventricular ejection fraction is normal by visual estimate at 65-70%. There ismild left ventricular hypertrophy. There are no regional [...] normal. There is mild to moderate pulmonic valveregurgitation. Pericardium: No pericardial effusion noted. Aorta: The [...] AoV Area,Vmax: 0.85 cm (more content not included)...[facility]US [facility] Transthoracicon 62-68-3349Sjsaps Valve Area by Continuity of Peak Velocity0.85 ii5DdkryyyqvhMagruder Hospital Work Phone: [phone] Valve Area by Continuity of VTI0.9 cm2 [facility] Work Phone: [phone] mn tmgy19sjKpLhbouzmqrxDiley Ridge Medical Center Work Phone: [phone] pk vavm13ozAlGeybjijhbcDiley Ridge Medical Center Work Phone: [phone] pk vel3.27 m/[facility] Work Phone: [phone] vol index A/L43.4 ml/c6KkeigrhhkkDiley Ridge Medical Center Work Phone: [phone] A4C EF76.9UnDiley Ridge Medical Center Work Phone: [phone] Biplane EF71 %[facility] Work Phone: [phone] EF68 %[facility] Work Phone: [phone] cmUnDiley Ridge Medical Center Work Phone: [phone] diam1.89 cmUnDiley Ridge Medical Center Work Phone: [phone] avg E/e' ratio15.93UnDiley Ridge Medical Center Work Phone: [phone] E/A oseix9VgmkglaroyDiley Ridge Medical Center Work Phone: [phone] free wall pk S'11.98 cm/[facility] Work Phone: [phone]y Ridge Medical Center Work Phone: [phone] annular plane systolic excursion2.4 cm [facility] Work Phone: [address], [address] [place] [address] TRANSTHORACIC ECHOCARDIOGRAM REPORT Patient Name: LAVONNE Bahena Physician: [id number] Shy Wolf MD, [facility] Study Date: 12/21/2024 Ordering Provider: [id number] SHY WOLF MRN/PID: [id number] Fellow: Nurse: Date of /Age: 3 1935 / 89 years Exchange Administrator: Sheridan Lemus RDCS, RVT Gender Assigned at F Additional Staff: : Height: 157.48 cm Admit Date: Weight: 65.77 kg Admission Status: Outpatient BSA / BMI: 1.67 m2 / 26.52 Department Location: [facility] Heart kg/m2 [place] Blood Pressure: 146 /68 mmHg Study Type: TRANSTHORACIC ECHO (TTE) COMPLETE Diagnosis/ICD: Nonrheumatic aortic (valve) stenosis-I35.0 Indication: HTN, Hyperlipidemia, 2/6 Systolic Murmur, Hypothyroid CPT Codes: Echo Complete w Full Doppler-77420 Study Detail: The following Echo studies were performed: 2D, M-Mode, Doppler and color flow. PHYSICIAN INTERPRETATION: Left Ventricle: Left ventricular ejection fraction is normal by visual estimate at 65-70%. There ismild left ventricular hypertrophy. There are no regional [...] normal. There is mild to moderate pulmonic valveregurgitation. Pericardium: No pericardial effusion noted. Aorta: The [...] 1.22 m/s (0.7-1.2 m/s (more content not included)...Shy Kenney MD - 12/21/2024 [facility] [address], [address], [place] [address] TRANSTHORACIC ECHOCARDIOGRAM REPORT Patient Name: LAVONNE VILLATORO Reading Physician: [id number] Shy Wolf MD, [facility] Study Date: 12/21/2024 Ordering Provider: [id number] SHY WOLF MRN/PID: [id number] Fellow: Nurse: Date of /Age: 3 1935 / 89 years Exchange Administrator: Sheridan Lemus RDCS, RVT Gender Assigned at F Additional Staff: : Height: 157.48 cm Admit Date: Weight: 65.77 kg Admission Status: Outpatient BSA / BMI: 1.67 m2 / 26.52 Department Location: [facility] kg/m2 [place] Blood Pressure: 146 /68 mmHg Study Type: TRANSTHORACIC ECHO (TTE) COMPLETE Diagnosis/ICD: Nonrheumatic aortic (valve) stenosis-I35.0 Indication: HTN, Hyperlipidemia, 2/6 Systolic Murmur, Hypothyroid CPT Codes: Echo Complete w Full Doppler-63035 Study Detail: The following Echo studies were performed: 2D, M-Mode, Doppler and color flow. PHYSICIAN INTERPRETATION: Left Ventricle: Left ventricular ejection fraction is normal by visual estimate at 65-70%. There ismild left ventricular hypertrophy. There are no regional [...] normal. There is mild to moderate pulmonic valveregurgitation. Pericardium: No pericardial effusion noted. Aorta: The [...] cm (18-25cm) LVOT VTI: (more content not included)...[facility] Work Phone: [facility] Work Phone: Complete Blood Count Auto Diffon 43-99-0471Ymmsnaqql (Bld) [#/Vol]0.1 10*3/uLNormal0.0-0.2The [facility] Physician GroupComment on above:Performed By: #### [id number], CMP, TSH3, LIPID, CBC, T4F, ESR #### [facility] [address] [place] [address] USABasophils/100 WBC (Bld)1.1 %Normal.[facility] Physician GroupComment on above:Performed By: #### [id number], CMP, TSH3, LIPID, CBC, T4F, ESR #### [place] [address] USAEosinophils (Bld) [#/Vol]0.1 10*3/uLNormal0.0-0.45The [facility] Physician GroupComment on above:Performed By: #### [id number], CMP, TSH3, LIPID, CBC, T4F, ESR #### [place] [address] USAEosinophils/100 WBC (Bld)2.2 %Normal.[facility] Physician GroupComment on above:Performed By: #### [id number], CMP, TSH3, LIPID, CBC, T4F, ESR #### [place] [address] USAErythrocyte distribution width (RBC) [Ratio]13.5 %Normal 11.9-15.3The [facility] Physician GroupComment on above:Performed By: #### [id number], CMP, TSH3, LIPID, CBC, T4F, ESR #### [place] [address] USAHematocrit (Bld) [Volume fraction]37.9 %Esbooz93.0-46.4The [facility] Physician GroupComment on above:Performed By: #### [id number], CMP, TSH3, LIPID, CBC, T4F, ESR #### [place] [address] USAHemoglobin (Bld) [Mass/Vol]12.9 g/lXGgnujs89.8-15.4The [facility] Physician GroupComment on above:Performed By: #### [id number], CMP, TSH3, LIPID, CBC, T4F, ESR #### [place] [address] USALymphocytes (Bld) [#/Vol]2.2 10*3/uLNormal1.00-4.8The [facility] Physician GroupComment on above:Performed By: #### [id number], CMP, TSH3, LIPID, CBC, T4F, ESR #### [place] [address] USALymphocytes/100 WBC (Bld)34.3 %Normal.[facility] Physician GroupComment on above:Performed By: #### [id number], CMP, TSH3, LIPID, CBC, T4F, ESR #### [address] (RBC) [Entitic mass]33.5 urDvnfzk90.7-34.3The [facility] Physician GroupComment on above:Performed By: #### [id number], CMP, TSH3, LIPID, CBC, T4F, ESR #### [address] (RBC) [Entitic vol]98.4 yZHwvqli31-813Enr [facility] Physician GroupComment on above:Performed By: #### [id number], CMP, TSH3, LIPID, CBC, T4F, ESR #### [place] [address] USAMean Corpuscular HGB Conc34.1 g/jNRzihjg53.0-35.0The [facility] Physician GroupComment on above:Performed By: #### [id number], CMP, TSH3, LIPID, CBC, T4F, ESR #### [place] [address] USAMonocytes (Bld) [#/Vol]0.6 10*3/uLNormal0.0-0.8The [facility] Physician GroupComment on above:Performed By: #### [id number], CMP, TSH3, LIPID, CBC, T4F, ESR #### [place] [address] USAMonocytes/100 WBC (Bld)9.8 %Normal.[facility] Physician GroupComment on above:Performed By: #### [id number], CMP, TSH3, LIPID, CBC, T4F, ESR #### [facility] [address] [place] [address] USANeutrophils (Bld) [#/Vol]3.4 10*3/uLNormal1.8-7.7The [facility] Physician GroupComment on above:Performed By: #### [id number], CMP, TSH3, LIPID, CBC, T4F, ESR #### [place] [address] USANeutrophils/100 WBC (Bld)52.6 %Normal.[facility] Physician GroupComment on above:Performed By: #### [id number], CMP, TSH3, LIPID, CBC, T4F, ESR #### [place] [address] USANRBC%0.3 /100{WBC}Normal0-0.5The [facility]ician Group Comment on above:Performed By: #### [id number], CMP, TSH3, LIPID, CBC, T4F, ESR #### [place] [address] USAPlatelet mean volume (Bld) [Entitic vol]9.3 fLNormal 6.3-10.7The [facility] Physician GroupComment on above:Performed By: #### [id number], CMP, TSH3, LIPID, CBC, T4F, ESR #### [place] [address] USAPlatelets (Bld) [#/Vol]208 10*3/xZBfrrdv184-438Hma [facility] Physician GroupComment on above:Performed By: #### [id number], CMP, TSH3, LIPID, CBC, T4F, ESR #### [place] [address] USARBC (Bld) [#/Vol]3.85 10*6/uLNormal3.60-5.00The [facility] Physician GroupComment on above:Performed By: #### [id number], CMP, TSH3, LIPID, CBC, T4F, ESR #### [place] [id number] USAWBC (Bld) [#/Vol]6.6 10*3/uLNormal3.8-11.6The [facility] Physician GroupComment on above:Performed By: #### [id number], CMP, TSH3, LIPID, CBC, T4F, ESR #### [place] [address] USAComprehensive Metabolic Panelon 00-71-7529Fmdujsg [Mass/Vol]3.7 g/dLNormal3.5-5.7The [facility] Physician GroupComment on above: Performed By: #### [id number], CMP, TSH3, LIPID, CBC, T4F, ESR #### [place] [address] USAAlbumin/Globulin [Mass ratio]1.9 {ratio}NormalThe [facility] Physician GroupComment on above:Performed By: #### [id number], CMP, TSH3, LIPID, CBC, T4F, ESR #### [place] [address] USAALP [Catalytic activity/Vol]62 U/GYuvuwl41-757Gcv [facility] Physician GroupComment on above:Performed By: #### [id number], CMP, TSH3, LIPID, CBC, T4F, ESR #### [place] [address] USAALT [Catalytic activity/Vol]21 U/LNormal7-52The [facility] Physician GroupComment on above:Performed By: #### [id number], CMP, TSH3, LIPID, CBC, T4F, ESR #### [place] [address] USAAnion gap [Moles/Vol]8.2 mmol/LNormal6.0-15.0The [facility] Physician GroupComment on above:Performed By: #### [id number], CMP, TSH3, LIPID, CBC, T4F, ESR #### [place] [address] USAAST [Catalytic activity/Vol]19 U/JLtrfrj16-02Uac [facility] Physician GroupComment on above:Performed By: #### [id number], CMP, TSH3, LIPID, CBC, T4F, ESR #### [place] [address] USABilirubin [Mass/Vol]0.7 mg/dLNormal0.3-1.0The [facility] Physician GroupComment on above:Performed By: #### [id number], CMP, TSH3, LIPID, CBC, T4F, ESR #### [place] [address] USACalcium [Mass/Vol]9.7 mg/dLNormal8.6-10.3The [facility] Physician GroupComment on above:Performed By: #### [id number], CMP, TSH3, LIPID, CBC, T4F, ESR #### [place] [address] USAChloride [Moles/Vol]107 mmol/MBjmxpp79-439Mgi [facility] Physician GroupComment on above:Performed By: #### [id number], CMP, TSH3, LIPID, CBC, T4F, ESR #### [place] [address] USACO2 [Moles/Vol]31.5 mmol/LHigh21.0-31.0The [facility] Physician GroupComment on above:Performed By: #### [id number], CMP, TSH3, LIPID, CBC, T4F, ESR #### [place] [address] USACreatinine [Mass/Vol]0.67 mg/dLNormal0.60-1.20The [facility] Physician GroupComment on above:Performed By: #### [id number], CMP, TSH3, LIPID, CBC, T4F, ESR #### [place] [address] USAGFR/1.73 sq M.predicted MDRD (S/P/Bld) [Vol rate/Area] mL/min/{1.73_m2}NormalThe [facility] Physician GroupComment on above:Performed By: #### [id number], CMP, TSH3, LIPID, CBC, T4F, ESR #### [place] [address] USAGlobulin (S) [Mass/Vol]1.9 g/dLNormalThe [facility] Physician GroupComment on above:Performed By: #### [id number], CMP, TSH3, LIPID, CBC, T4F, ESR #### [place] [address] USAGlucose [Mass/Vol]89 mg/xUGvpwba84-685Rvw [facility] Physician GroupComment on above:Result Comment: Random Glucose Reference Range is dependent on time and content of last meal. Glucose of more than 200 mg/dL in a nonstressed, ambulatory subject supports the diagnosis of Diabetes Mellitus. ADA recommended reference rangePerformed By: #### [id number], CMP, TSH3, LIPID, CBC, T4F, ESR #### [place] [address] USAPotassium [Moles/Vol]3.7 mmol/LNormal3.5-5.1The [facility] Physician GroupComment on above:Performed By: #### [id number], CMP, TSH3, LIPID, CBC, T4F, ESR #### [place] [address] USAProtein [Mass/Vol]5.6 g/dLLow6.4-8.9The [facility] Physician GroupComment on above:Performed By: #### [id number], CMP, TSH3, LIPID, CBC, T4F, ESR #### [place] [address] USASodium [Moles/Vol]143 mmol/UHrqggt860-319Txs [facility] Physician GroupComment on above:Performed By: #### [id number], CMP, TSH3, LIPID, CBC, T4F, ESR #### [place] [address] USAUrea nitrogen [Mass/Vol]19 mg/dLNormal7-25The [facility] Physician GroupComment on above:Performed By: #### [id number], CMP, TSH3, LIPID, CBC, T4F, ESR #### [facility] [address] [place] [id number] USAErythrocyte Sedimentation Rateon 75-00-0362BCF (Bld) [Velocity]9 mm/hNormal0-29The [facility] Physician GroupComment on above:Result Comment: PERFORMED BY: [place] [address] PATHOLOGIST ASSISTANT BOOKKEEPER JASIEL HURTADO M.D.Performed By: #### [id number], CMP, TSH3, LIPID, CBC, T4F, ESR #### [place] [address] USAFree T4 (Free Thyroxine)on 91-49-7920Pett T4 [Mass/Vol] 0.74 ng/dLNormal0.61-1.12The [facility] Physician GroupComment on above:Performed By: #### LIPID, TSH3, CMP, CBC #### [place] [address] USALipid Panelon 80-38-7880Wxezvbakvvj [Mass/Vol]228 mg/dL Wyub758-441Ztj [facility] Physician GroupComment on above:Result Comment: Chol less than 200 mg/dl low risk Chol 201-239 mg/dl borderline risk Chol 240 mg/dl and greater high riskPerformed By: #### [id number], CMP, TSH3, LIPID, CBC, T4F, ESR #### [place] [id number] USACholesterol in HDL [Mass/Vol]96 mg/wNRobv33-02Szd [facility] Physician GroupComment on above:Result Comment: HDL CHOL ATP-III CLASSIFICATION Cardiovascular Risk HDL > or equal to 60 mg/dL LOW HDL < 40 mg/dL HIGHPerformed By: #### [id number], CMP, TSH3, LIPID, CBC, T4F, ESR #### [place] [id number] USACholesterol.total/Cholesterol in HDL [Mass ratio]2.4 {ratio}Normal<5.0The [facility] Physician GroupComment on above:Performed By: #### [id number], CMP, TSH3, LIPID, CBC, T4F, ESR #### [facility] [address] [place] [address] USALDL Cholesterol,Tlanqjrvft943 mg/dLHigh0-100The [facility] Physician GroupComment on above:Result Comment: LDL ATP III CLASSIFICATION LDL less than 100 mg/dL Optimal LDL 100-129 mg/dL Near or above optimal LDL 130-159 mg/dL Borderline high LDL 160-189 mg/dL High LDL greater than 189 mg/dL Very highPerformed By: #### [id number], CMP, TSH3, LIPID, CBC, T4F, ESR #### [facility] [address] [place] [address] USATriglyceride w/Dcnxtg30 mg/dLNormal0-149The [facility] Physician GroupComment on above:Result Comment: TRIG ATP III CLASSIFICATION TRIG less than 150 mg/dL Normal TRIG 150-199 mg/dL Borderline high TRIG 200-500 mg/dL High TRIG greater than 500 mg/dL Very high Standard traceable to the Center for Disease Conrtrol and Prevention (CDC) test method.Performed By: #### [id number], CMP, TSH3, LIPID, CBC, T4F, ESR #### [facility] [address] [place] [address] USAVLDL YNZJXGCIWDW82 mg/dLNormalThe [facility] Physician GroupComment on above:Performed By: #### [id number], CMP, TSH3, LIPID, CBC, T4F, ESR #### [facility] [address] [place] [address] USAThyroid Stimulating Hormoneon 66-43-0631ZVU Qn6.38 m[IU]/L High0.45-5.33The [facility] Physician GroupComment on above:Performed By: #### LIPID, TSH3, CMP, CBC #### [facility] [address] [place] [address] USAVitamin D 25 Hydroxy Totalon 37-59-1432Cjurmjg D 25 Hydroxy Total28.4 ng/rVZls05-868Pup [facility] Physician GroupComment on above: Result Comment: VITAMIN D STATUS 25(OH)VITAMIN D RANGE (ng/mL) Deficient <20 Insufficient 20 to <30 Sufficient 30 to 100 Reference: Yolanda ARIAS,Nathan NC, Keshawn FRANCO, et al. Evaluation,treatment, and prevention of vitamin D deficiency; an Endocrine Society clinical practice guideline. JCEM. 2010; 96(7):1911-30. PERFORMED BY: [place] [address] PATHOLOGIST ASSISTANT BOOKKEEPER JASIEL HURTADO M.D.Performed By: #### LIPID, TSH3, CMP, CBC #### [place] [address] USAXR scapula LT*on 05-75-9446IP scapula LT*[facility] [place] [address] [place] [address] XRay Report Signed Patient: Lavonne Villatoro MR#: [id number] : 1935 Acct:[id number] Age/Sex: 88 / F ADM Date: 05/25/24 Loc: Room: Type: [facility] Attending Dr: Suhas Garrett DO Copies to: Suhas Garrett DO Ordering Provider: Suhas Garrett DO Date of Service: 05/25/24 XR/XR shoulder LT min 2V*: M25.519 - Pain in unspecified shoulder ([id number]) XR/XR scapula LT*: M25.519 - Pain in [...] Casandra Gómez M.D.05/25/2024 4:45 PM Dictation Location: [place] [address] Transcribed By: [facility] 05/25/241644 Dictated By: Casandra Gómez MD 05/25/241641 Signed By: 05/25/24 1645[facility] Physician GroupTRANSTHORACIC ECHO (TTE) COMPLETEon 97-75-4605JROBAZONISPBD ECHO (TTE) COMPLETENo[address], [address] [place] [address] TRANSTHORACIC ECHOCARDIOGRAM REPORT Patient Name: LAVONNE VILLATORO Reading Physician: [id number] hSy Wolf MD, [facility] Study Date: 02/11/2024 Ordering Provider: [id number] SHY WOLF MRN/PID: [id number] Fellow: Nurse: Date of /Age: 3 1935 / 88 years Exchange Administrator: LILIA Gender: F Additional Staff: Height: 157.48 cm Admit Date: Weight: 69.40 kg Admission Status: BSA / BMI: 1.71 m2 / 27.98 kg/m2 Department Location: [facility] Blood Pressure: 116 /76 mmHg Study Type: TRANSTHORACIC ECHO (TTE) COMPLETE Diagnosis/ICD: Nonrheumatic aortic (valve) stenosis-I35.0 Indication: HTN, Hyperlipidemia, 3/6 Systolic Murmur, Hypothryoid, Overweight CPT Codes: Echo Complete w Full Doppler-48855 Study Detail: The following Echo studies were performed: 2D, M-Mode, Doppler and color flow. PHYSICIAN INTERPRETATION: Left Ventricle: The left ventricular systolic function is normal, with a visually estimated ejection fraction of 70%. There are no regional wall motion abnormalities. The left ventricular cavity sizeis normal. Spectral Doppler shows an impaired relaxation [...] The mean gradient of the aortic valve is26.0 mmHg. The peak velocity across the aortic valve measured 361 cm/s corresponding to a peak pressure gradient of 52 mmHg and a mean pressure gradient 26 mmHg. Aortic valve area measured 0.7 cm???.These parameters are consistent with severe aortic stenosis. Mitral Valve: The mitral valve is mildly thickened. There is no evidence of mitral valve regurgitation. Tricuspid Valve: The tricuspid valve is structurally normal. There is mild tricuspid regurgitation.Estimated RVSP 42 mmHg consistent with mild pulmonary hypertension. Pulmonic Valve: The pulmonic valve is structurally normal. There is no indication of pulmonic valveregurgitation. Pericardium: There is no pericardial effusion noted. Aorta: The aortic root is normal. Systemic Veins: The inferior vena cava appears to be of normal size. In comparison to the previous echocardiogram(s): When compared to study from 02/26/2023, no significant interval changes were seen. CONCLUSIONS: 1. The left ventricular systolic function is normal, with a visually estimated ejection fraction of70%. 2. Spectral Doppler shows an impaired relaxation [...] mmHg PIEDV: 2.23 m/s PADP: 22.9 mmHg [id number] Shy Wolf MD, FACC Electronical (more content not included)...[facility] BIon 44-65-2152CS carotid doppler [facility] [place] [address] [place] [address] Ultrasound Report Signed Patient: Lavonne Villatoro MR#: [id number] : 1935 Acct:[id number] Age/Sex: 88 / F ADM Date: 10/14/23 Loc: Room: Type: [facility] Attending Dr: Suhas Garrett DO [...] Hola Wynn M.D.10/15/2023 11:47 AM Dictation Location: [place] [address] Tech: Jackie Aguillon Transcribed By: KIRILL 10/15/23 1147 Dictated By: Hola Wynn MD 10/15/23 1145 Signed By: 10/15/23 1147[facility] Physician [facility] HospitalComplete [facility] Count Auto Diffon 46-80-6641Dzhcbmcuo (Bld) [#/Vol]0.0 10*3/uLNormal0.0-0.2The [facility] Physician GroupComment on above:Result Comment: PERFORMED BY: [place] [address] PATHOLOGIST ASSISTANT BOOKKEEPER JODY SOLANO M.D.Performed By: #### LIPID, TSH3, CMP, CBC #### [place] [address] USABasophils/100 WBC (Bld)0.7 %Normal.The [facility] Physician GroupComment on above:Performed By: #### LIPID, TSH3, CMP, CBC #### [place] [address] USAEosinophils (Bld) [#/Vol]0.1 10*3/uLNormal0.0-0.45The [facility] Physician GroupComment on above:Performed By: #### LIPID, TSH3, CMP, CBC #### [place] [address] USAEosinophils/100 WBC (Bld)1.6 %Normal.The [facility] Physician GroupComment on above:Performed By: #### LIPID, TSH3, CMP, CBC #### [place] [address] USAErythrocyte distribution width (RBC) [Ratio]14.8 %Normal 11.9-15.3The [facility] Physician GroupComment on above:Performed By: #### LIPID, TSH3, CMP, CBC #### [place] [address] USAHematocrit (Bld) [Volume fraction]39.9 %Wuzgga21.0-46.4The [facility] Physician GroupComment on above:Performed By: #### LIPID, TSH3, CMP, CBC #### [place] [address] USAHemoglobin (Bld) [Mass/Vol]13.2 g/qYLaxlyz47.8-15.4The [facility] Physician GroupComment on above:Performed By: #### LIPID, TSH3, CMP, CBC #### [place] [address] USALymphocytes (Bld) [#/Vol]2.6 10*3/uLNormal1.00-4.8The [facility] Physician GroupComment on above:Performed By: #### LIPID, TSH3, CMP, CBC #### [place] [address] USALymphocytes/100 WBC (Bld)43.5 %Normal.The [facility] Physician GroupComment on above:Performed By: #### LIPID, TSH3, CMP, CBC #### [place] [address] USAMCH (RBC) [Entitic mass]33.2 yuXznatz73.7-34.3The [facility] Physician GroupComment on above:Performed By: #### LIPID, TSH3, CMP, CBC #### [place] [address] USAV (RBC) [Entitic vol]100.5 lIWtlh18-836Tfx [facility] Physician GroupComment on above:Performed By: #### LIPID, TSH3, CMP, CBC #### [place] [address] USAMean Corpuscular HGB Conc33.0 g/cVTgbmem92.0-35.0The [facility] Physician GroupComment on above:Performed By: #### LIPID, TSH3, CMP, CBC #### [place] [address] USAMonocytes (Bld) [#/Vol]0.6 10*3/uLNormal0.0-0.8The [facility] Physician GroupComment on above:Performed By: #### LIPID, TSH3, CMP, CBC #### [place] [address] USAMonocytes/100 WBC (Bld)9.7 %Normal.The [facility] Physician GroupComment on above:Performed By: #### LIPID, TSH3, CMP, CBC #### [place] [address] USANeutrophils (Bld) [#/Vol]2.7 10*3/uLNormal1.8-7.7The [facility] Physician GroupComment on above:Performed By: #### LIPID, TSH3, CMP, CBC #### [place] [address] USANeutrophils/100 WBC (Bld)44.5 %Normal.The [facility] Physician GroupComment on above:Performed By: #### LIPID, TSH3, CMP, CBC #### [place] [address] USANRBC%0.2 /100{WBC}Normal0-0.5The [facility]ician Group Comment on above:Performed By: #### LIPID, TSH3, CMP, CBC #### [place] [address] USAPlatelet mean volume (Bld) [Entitic vol]9.2 fLNormal 6.3-10.7The [facility] Physician GroupComment on above:Performed By: #### LIPID, TSH3, CMP, CBC #### [place] [address] USAPlatelets (Bld) [#/Vol]229 10*3/gPZfcqdd854-581Dsd [facility] Physician GroupComment on above:Performed By: #### LIPID, TSH3, CMP, CBC #### [place] [address] USARBC (Bld) [#/Vol]3.98 10*6/uLNormal3.60-5.00The [facility] Physician GroupComment on above:Performed By: #### LIPID, TSH3, CMP, CBC #### [facility] [address] [place] [address] USAWBC (Bld) [#/Vol]6.0 10*3/uLNormal3.8-11.6The [facility] Physician GroupComment on above:Performed By: #### LIPID, TSH3, CMP, CBC #### [place] [address] USAComprehensive Metabolic Panelon 30-20-3618Qbllpgi [Mass/Vol]3.8 g/dLNormal3.5-5.7The [facility] Physician GroupComment on above: Performed By: #### LIPID, TSH3, CMP, CBC #### [place] [address] USAAlbumin/Globulin [Mass ratio]1.7 {ratio}NormalThe [facility] Physician GroupComment on above:Performed By: #### LIPID, TSH3, CMP, CBC #### [place] [address] USAALP [Catalytic activity/Vol]72 U/IEoabah83-796Ifg [facility] Physician GroupComment on above:Performed By: #### LIPID, TSH3, CMP, CBC #### [place] [address] USAALT [Catalytic activity/Vol]43 U/LNormal7-52The [facility] Physician GroupComment on above:Performed By: #### LIPID, TSH3, CMP, CBC #### [place] [address] USAAnion gap [Moles/Vol]8.9 mmol/LNormal6.0-15.0The [facility] Physician GroupComment on above:Performed By: #### LIPID, TSH3, CMP, CBC #### [place] [address] USAAST [Catalytic activity/Vol]23 U/YQokgyw93-11Rmh [facility] Physician GroupComment on above:Performed By: #### LIPID, TSH3, CMP, CBC #### [place] [address] USABilirubin [Mass/Vol]1.2 mg/dLHigh0.3-1.0The [facility] Physician GroupComment on above:Performed By: #### LIPID, TSH3, CMP, CBC #### [place] [address] USACalcium [Mass/Vol]9.5 mg/dLNormal8.6-10.3The [facility] Physician GroupComment on above:Performed By: #### LIPID, TSH3, CMP, CBC #### [facility] [address] [place] [address] USAChloride [Moles/Vol]107 mmol/SDxhkaj49-798Wro [facility] Physician GroupComment on above:Performed By: #### LIPID, TSH3, CMP, CBC #### [place] [address] USACO2 [Moles/Vol]30.0 mmol/HNynnqd29.0-31.0The [facility] Physician GroupComment on above:Performed By: #### LIPID, TSH3, CMP, CBC #### [place] [address] USACreatinine [Mass/Vol]0.76 mg/dLNormal0.60-1.20The [facility] Physician GroupComment on above:Performed By: #### LIPID, TSH3, CMP, CBC #### [place] [address] USAGFR/1.73 sq M.predicted MDRD (S/P/Bld) [Vol rate/Area] mL/min/{1.73_m2}NormalThe [facility] Physician GroupComment on above:Performed By: #### LIPID, TSH3, CMP, CBC #### [place] [address] USAGlobulin (S) [Mass/Vol]2.2 g/dLNormalThe [facility] Physician GroupComment on above:Performed By: #### LIPID, TSH3, CMP, CBC #### [place] [address] USAGlucose [Mass/Vol]79 mg/uKMwptdo15-337Stp [facility] Physician GroupComment on above:Result Comment: Random Glucose Reference Range is dependent on time and content of last meal. Glucose of more than 200 mg/dL in a nonstressed, ambulatory subject supports the diagnosis of Diabetes Mellitus. ADA recommended reference rangePerformed By: #### LIPID, TSH3, CMP, CBC #### [facility] [address] [place] [address] USAPotassium [Moles/Vol]3.9 mmol/LNormal3.5-5.1The [facility] Physician GroupComment on above:Performed By: #### LIPID, TSH3, CMP, CBC #### [facility] [address] [place] [address] USAProtein [Mass/Vol]6.0 g/dLLow6.4-8.9The [facility] Physician GroupComment on above:Performed By: #### LIPID, TSH3, CMP, CBC #### [facility] [address] [place] [address] USASodium [Moles/Vol]142 mmol/AHceviz595-606Rwd [facility] Physician GroupComment on above:Performed By: #### LIPID, TSH3, CMP, CBC #### [facility] [address] [place] [address] USAUrea nitrogen [Mass/Vol]22 mg/dLNormal7-25The [facility] Physician GroupComment on above:Performed By: #### LIPID, TSH3, CMP, CBC #### [place] [address] USALipid Panelon [id number] [Mass/Vol]243 mg/dL [id number] [facility] Physician GroupComment on above:Result Comment: Chol less than 200 mg/dl low risk Chol 201-239 mg/dl borderline risk Chol 240 mg/dl and greater high riskPerformed By: #### LIPID, TSH3, CMP, CBC #### [place] [address] USACholesterol in HDL [Mass/Vol]98 mg/[id number] [facility] Physician GroupComment on above:Result Comment: HDL CHOL ATP-III CLASSIFICATION Cardiovascular Risk HDL > or equal to 60 mg/dL LOW HDL < 40 mg/dL HIGHPerformed By: #### LIPID, TSH3, CMP, CBC #### [facility] [address] [place] [id number] USACholesterol.total/Cholesterol in HDL [Mass ratio]2.5 {ratio}Normal<5.0The [facility] Physician GroupComment on above:Performed By: #### LIPID, TSH3, CMP, CBC #### [facility] [address] [place] [address] USALDL Cholesterol,Zctqxsvehn403 mg/dLHigh0-100[facility] Physician GroupComment on above:Result Comment: LDL ATP III CLASSIFICATION LDL less than 100 mg/dL Optimal LDL 100-129 mg/dL Near or above optimal LDL 130-159 mg/dL Borderline high LDL 160-189 mg/dL High LDL greater than 189 mg/dL Very highPerformed By: #### LIPID, TSH3, CMP, CBC #### [place] [address] USATriglyceride w/Yjolqv588 mg/dLNormal0-149[facility] Physician GroupComment on above:Result Comment: TRIG ATP III CLASSIFICATION TRIG less than 150 mg/dL Normal TRIG 150-199 mg/dL Borderline high TRIG 200-500 mg/dL High TRIG greater than 500 mg/dL Very high Standard traceable to the Center for Disease Conrtrol and Prevention (CDC) test method.Performed By: #### LIPID, TSH3, CMP, CBC #### [place] [address] USAVLDL ZBNBYVXCUPW12 mg/dLNormalThe [facility] Physician GroupComment on above:Performed By: #### LIPID, TSH3, CMP, CBC #### [place] [id number] USAThyroid Stimulating Hormoneon 34-14-5519DOA Qn4.01 m[IU]/L Normal0.45-5.33[facility] Physician GroupComment on above:Result Comment: PERFORMED BY: [place] [address] PATHOLOGIST ASSISTANT BOOKKEEPER JODY SOLANO M.D.Performed By: #### LIPID, TSH3, CMP, CBC #### [facility] [address] [place] [address] USAComplete Blood Count Auto Diffon 78-26-2629Gmofqsycv (Bld) [#/Vol]0.700381263 10*3/uLNormal0.0-0.2 10*3/[employer] Other Basophils/100 WBC (Bld)0.900 %. %[employer] Other Eosinophils (Bld) [#/Vol]0.119287540 10*3/uLNormal0.0- 0.45 10*3/[employer] Other Eosinophils/100 WBC (Bld)1.100 %. %[employer] Other Erythrocyte distribution width (RBC) [Ratio]14.000 % Hsfgev56.9-15.3 %[employer] Other Hematocrit (Bld) [Volume fraction]37.700 %Llddlu27.0- 46.4 %[employer] Other Hemoglobin (Bld) [Mass/Vol]12.842203 g/lLKzyzcj89.8- 15.4 g/dLNoSuperSonic [employer] Other Lymphocytes (Bld) [#/Vol]2.577592489 10*3/uLNormal 1.00-4.8 10*3/[employer] Other Lymphocytes/100 WBC (Bld)35.100 %. %[employer] Other MCH (RBC) [Entitic mass]33.3000 sjVbdnds83.7-34.3 pg [employer] Other MCV (RBC) [Entitic vol]99.7000 bEYgceei93-489 fLIn[employer]ure Cloud Other Monocytes (Bld) [#/Vol]0.479209144 10*3/uLNormal0.0- 0.8 10*3/[employer] Other Monocytes/100 WBC (Bld)10.000 %. %[employer] Other Neutrophils (Bld) [#/Vol]3.074207239 10*3/uLNormal1.8- 7.7 10*3/[employer] Other Neutrophils/100 WBC (Bld)52.900 %. %[employer] Other Platelet mean volume (Bld) [Entitic vol]9.9000 fL Normal6.3-10.7 fLMilaca [employer] Other Platelets (Bld) [#/Vol]224 10*3/hUOspfke927-546 10*3/[employer] Other RBC (Bld) [#/Vol]3.78 10*6/uLNormal3.60-5.00[place] [employer] Other WBC (Bld) [#/Vol]7.456505623 10*3/uLNormal3.8-11.6 10*3/[employer] Other Complete Blood Count Auto Diff7.1 10*3/uLNormal3.8- 11.6 10*3/[employer] Other Complete Blood Count Auto Diff33.4 g/cARijvct43.0-35.0 g/dLIn[employer]ure Cloud Other Complete Blood Count Auto Diff0.1 /100{WBC}Normal0-0.5 /100{WBC}[employer] Other Comprehensive Metabolic Panelon 95-96-1899Miwucfs [Mass/Vol]3.991128 g/dLNormal3.5-5.7 g/dLNoMetaFarms [employer] Other Albumin/Globulin [Mass ratio]1.7 {ratio}[employer] Other ALP [Catalytic activity/Vol]140 U/DRxto29-866 U/[employer] Other ALT [Catalytic activity/Vol]71 U/LHigh7-52 U/[employer] Other AST [Catalytic activity/Vol]20 U/ZMbcbjz19-27 U/[employer] Other Bilirubin [Mass/Vol]0.3505145 mg/dLNormal0.3-1.0 mg/dL [employer] Other Calcium [Mass/Vol]9.1753740 mg/dLNormal8.6-10.3 mg/dL [employer] Other Chloride [Moles/Vol]107 mmol/DGocwsd07-619 mmol/[employer] Other CO2 [Moles/Vol]30.65630912 mmol/HCemald41.0-31.0 mmol/[employer] Other Creatinine [Mass/Vol]0.03348549 mg/dLNormal0.60-1.20 mg/dLNoSuperSonic Imagine Other GFR/1.73 sq M.predicted MDRD (S/P/Bld) [Vol rate/Area] mL/min/{1.73_m2}[employer] Other Glucose [Mass/Vol]89 mg/qGVmyzhj50-904 mg/dLIn[employer] Cloud Other Potassium [Moles/Vol]3.53119241 mmol/LNormal3.5-5.1 mmol/[employer] Other Protein [Mass/Vol]6.208908 g/dLLow6.4-8.9 g/dLMilaca [employer] Other Sodium [Moles/Vol]143 mmol/IVehnea518-598 mmol/LNwright memorial hospital [employer] Other Urea nitrogen [Mass/Vol]21 mg/dLNormal7-25 mg/dLMilaca [employer] Other Comprehensive Metabolic Panel2.2 g/dLNopemiscot memorial health systems [employer] Other Free T4 (Free Thyroxine)on 66-52-0124Pdzo T4 [Mass/Vol]1.71523268 ng/dLHigh0.61-1.12 ng/dLMilaca [employer] Other Thyroid Antibodies TPO+Tg Abon 74-55-0605Xtbvbxr Antibodies TPO+Tg Lv731-78Skvfo [employer] Other Thyroid Antibodies TPO+Tg Ab<1.00.0-0.9[place] [employer] Other Thyroid Stimulating Hormoneon 59-96-5928AFU Qn 2.83597663570 m[IU]/LNormal0.45-5.33 u[iU]/mLNOrlando Telephone Company Other Echocardiogramon 17-96-7799JnpptaipvuumyvlzFzgflGina V[place] [address] TRANSTHORACIC ECHOCARDIOGRAM REPORT Patient Name: LAVONNE Bahena Physician: [id number] [facility] Study Date: 02/26/2023 Referring SHY WOLF Physician: MRN/PID: [id number] PCP: Suhas Garrett MD Accession/Order#: [id number] [facility] Location: Date of : 1935 Fellow: Gender: F Nurse: Admit Date: Exchange Administrator: Sheridan Escalantez RDCS, RVT Height: 157.48 cm CC Report to: Weight: 67.13 kg Study Type: Echocardiogram BSA: 1.68 m2 Blood Pressure: 122 /76 mmHg Diagnosis/ICD: I35.0-Nonrheumatic aortic (valve) stenosis; R01.1-Cardiac murmur, unspecified Indication: HTN, Hyperlipidemia, Overweight, Hypothyroid, Polymyalgia Rheumatica Procedure/CPT: Echo Complete w Full Doppler-[id number] Study Detail: The following Echo studies were [...] velocity across the aortic valve has increased vpeh784 cm/s up to 374 cm/s and aortic [...] mmHg PIEDV: 2.50 m/s PADP: 28.0 mmHg [id number] Shy Wolf MD, FACC Electronically signed on 03/01/2023 at 2:16:46 PM Final NormalProwers Medical CenterOffice Visit (Cardiology)on 38-15-0158Uwpiek-up visitDiagnoses/Problems Assessed Aortic stenosis (424.1) (I35.0) Murmur, cardiac (785.2) (R01.1) Essential hypertension (401.9) (I10) Hyperlipidemia (272.4) (E78.5) Overweight with body mass index (BMI) of 27 to 27.9 in adult (278.02,V85.23) (E66.3,Z68.27) Never smoker Hypothyroidism (244.9) (E03.9) PMR (polymyalgia rheumatica) (725) (M35.3) Orders Aortic stenosis, Murmur, cardiac Echocardiogram; Status:Hold For - Scheduling,Retrospective Authorization; Requested for:[id number]; Essential hypertension, Hyperlipidemia Changed: From Aspirin EC 81 MG TBEC TAKE 1 TABLET To Aspirin 81 MG Oral Tablet Delayed Release TAKE 1 TABLET DAILY Overweight with body mass index (BMI) of 27 to 27.9 in adult Healthy Weight Tips; Status:Complete - Retrospective Authorization; Done: 19Sdw8546 Some eating tips that can help you lose weight.; Status:Complete - Retrospective Authorization; Done: [id number] SocHx: Never smoker Tobacco Use Screening; Status:Complete; Done: [id number] Patient Instructions Please bring all medicines, vitamins, [...] syncope orthopnea PND or chestpain on exertion. ASSESSMENT AND PLAN: 1. Hypertension, [...] is being tapered gradually [facility] Wolf MD, [facility] Past Medical History Problems History of Carotid [...] Multi Vitamin Oral TabletTAKE 1 TABLET DAILY. Butler-3 Fish Oil 1000 MG Oral CapsuleTAKE 1 [...] negative for complaint. Vitals Vital Signs Recorded: 04Vxg8306 11:32AM Heart Rate68, R Radial Lgbhdudg667, RUE, Sitting Dpyjxkuzi71, RUE, Sitting Height5 ft 2 in Wsvdrx095 lb BMI Tmoixbizsc65.07 kg/m2 BSA Calculated1.68 Tobacco Useb) No PHQ-2 #1. Over the last 2 weeks have you felt down, depressed or hopeless? (If yes, answer PHQ-9 below)No PHQ-2 #2. Over the last 2 weeks have you felt little interest or pleasure in doing things? (If yes,answer PHQ-9 below)No Falls Screening (Age 18+)a) No falls within the last year Physical Exam Constitutional: alert and in no acute distress. Neck: neck is supple, symmetric, trachea midline, no masses and no thyromegaly . Pulmonary: no increased work of breathing or signs of respiratory distress a (more content not included)...NormalUH TouchworksTobacco Screening.on 12-24-2022 Adult depression screening assessmentNoNorthwest Hospital [employer] [address] Work Phone: Fall risk assessmenta) No falls within the last year [facility] [employer] [address] DO Work Phone: Tobacco use status CPHSb) NoMP-[facility] [address] DO Work Phone: Complete Blood Count Auto Diffon 85-49-5265Tveatpegc (Bld) [#/Vol]0.873607647 10*3/uLNormal0.0-0.2 10*3/[employer] Other Basophils/100 WBC (Bld)0.700 %. %[employer] Other Eosinophils (Bld) [#/Vol]0.035534079 10*3/uLNormal0.0- 0.45 10*3/[employer] Other Eosinophils/100 WBC (Bld)0.700 %. %[employer] Other Erythrocyte distribution width (RBC) [Ratio]13.500 % Pztaaz56.9-15.3 %[employer] Other Hematocrit (Bld) [Volume fraction]38.400 %Atnmkc37.0- 46.4 %[employer] Other Hemoglobin (Bld) [Mass/Vol]12.133802 g/jOAnzptp42.8- 15.4 g/dLNoMetaFarms [employer] Other Lymphocytes (Bld) [#/Vol]0.494208300 10*3/uLLow1.00- 4.8 10*3/[employer] Other Lymphocytes/100 WBC (Bld)12.600 %. %[employer] Other MCH (RBC) [Entitic mass]33.7000 buWqnqyg66.7-34.3 pg [employer] Other MCV (RBC) [Entitic vol]100.4000 pNSwca38-444 fLMetaFarms [employer] Other Monocytes (Bld) [#/Vol]0.298918357 10*3/uLNormal0.0- 0.8 10*3/[employer] Other Monocytes/100 WBC (Bld)6.800 %. %[employer] Other Neutrophils (Bld) [#/Vol]5.270242255 10*3/uLNormal1.8- 7.7 10*3/[employer] Other Neutrophils/100 WBC (Bld)79.200 %. %[employer] Other Platelet mean volume (Bld) [Entitic vol]9.4000 fL Normal6.3-10.7 [facility] [facility] HospitalSuper[facility] Imagine Other Platelets (Bld) [#/Vol]223 10*3/dQHnpmxv600-537 10*3/[employer] Other RBC (Bld) [#/Vol]3.8788195003 10*6/uLNormal3.60-5.00 10*6/[employer] Other WBC (Bld) [#/Vol]6.740553483 10*3/uLNormal3.8-11.6 10*3/[employer] Other Complete Blood Count Auto Diff6.6 10*3/uLNormal4.5- 11.0 10*3/[employer] Other Complete Blood Count Auto Diff33.6 g/kSNpuuwl49.0-35.0 g/dLIn[employer]ure Cloud Other Complete Blood Count Auto Diff0.1 %Normal0-0.5 %[employer] Other Erythrocyte Sedimentation Rateon 31-83-8023NMY (Bld) [Velocity]28 mm/hNormal0-29[facility] [employer] Other VASC LAB Carotid Artery Duplex Ultrasoundon 02-21-2022 US.doppler Carotid arteriesNorthwest Hospital [facility] [address] [place] Work Phone: COVID Quick Testingon 90-76-8839HoccmuPyrqionnQjyzu [employer] Other Falls Screening (Age 18+)on 13-68-4271Rdxd risk assessmenta) No falls within the last yearNorth[facility] Hospital [employer] 250 DO Work Phone: Office Visit (Cardiology)on 67-57-6191Wnpdzh-up visit Diagnoses/Problems Assessed Essential hypertension (401.9) (I10) Patient Instructions By signing my name below, ISherin Lpn,Scribe, attest that this documentation has been prepared under the direction and in the presence of Dr. Shy Wolf MD. All medical record entries made by the Scribe were at my direction and personally dictated by me. Tea reviewed the chart and agree that the [...] MG Oral Tablet Delayed ReleaseTAKE 1 TABLET -W- Calcium 600 MG TABSTAKE 1 TABLET DAILY. Carvedilol 6.25 MG Oral TabletTAKE 1 TABLET TWICE DAILY WITH MEALS. Levothyroxine Sodium 100 MCG Oral TabletTAKE 1 TABLET DAILY. Losartan Potassium-HCTZ 100-12.5 MG Oral TabletTAKE 1 TABLET DAILY. Multi Vitamin Oral TabletTAKE 1 TABLET DAILY. Butler 3 500 CAPSTAKE 1 CAPSULE Daily predniSONE 5 MG Oral Gdbpik4ER 7.5MG BY MOUTH ONE DAILY ALTERNATING EVERY OTHER DAY Allergies Medication amoxicillin Hives;; Recorded By: Kayla Orr; 10/17/2021 10:50:34 AM Dilantin CAPS Rash; Recorded By: Kayla Orr; 10/17/2021 10:50:34 AM Fosamax eye pain; Recorded By: Kayla Orr; 10/17/2021 10:50:34 AM Depakote ER TB24 Recorded By: Kayla Orr; 10/17/2021 10:50:34 AM Vitals Vital Signs Recorded: 26Dec2021 11:04AMRecorded: 26Dec2021 11:00AM Heart Rate56, R Qaefwl63, R Radial Puqfbklv782, LUE, Gjwbkrx836, RUE Rioooitny97, LUE, Zhnocjs69, RUE Height5 ft 2 in5 ft 2 in Cwwodq233 lb 143 lb BMI Drkbbbmzyw06.16 kg/m226.16 kg/m2 BSA Calculated1.661.66 Falls Screening (Age 18+)a) No falls within the last year Signatures Electronically signed by : Shy Wolf MD; Dec 26 2021 4:02PM EST (Author) [facility] TouchworksTobacco Screening.on 95-13-3402Zhvcz depression screening assessmentNoAshtabula [facility] Center Work Phone: Fall risk assessmenta) No falls within the last year [facility] Work Phone: Tobacco use status CPHSb) [facility] Work Phone: Vital Signs Date TimeVital SignValuePerforming AgsjshggnGapilbqj36-18-2195 11:07-0400Body .5 cmShy Wolf MD Work Phone: [facility]08-08-2025 11:07-0400 Body mass index (BMI) [Ratio]27.44 kg/c2LgkvucShy Wolf MD Work Phone: [facility]08-08-2025 11:07-0400 Body knveua01.04 kgShy Wolf MD Work Phone: [facility]08-08-2025 11:07-0400 Diastolic blood mm[Hg]Shy Wolf MD Work Phone: 1(259)502-[address] [place], [place] 1911508-08-2025 11:07-0400 Heart rate60 /minShy Wolf MD Work Phone: [phone] [place], [place] 1911508-08-2025 11:07-0400 Systolic blood yjkpcjnc073 mm[Hg]Shy Wolf MD Work Phone: 1(668)658-[address] [place], [place] 1911507-15-2025 12:30-0400 Body .[address]07-15-2025 12:30-0400 Body mass index (BMI) [Ratio]26.52 kg/m[address] 12-21-2024 12:30-0400Body ndeyvz84.[address] 12-21-2024 12:30-0400Diastolic blood uqtwxqvn90 mm[Hg][address]07-15-2025 12:30-0400Systolic blood zmvujvwq983 mm[Hg][address]07-02-2025 13:56-0400Diastolic blood mozvkfdz30 mm[Hg]Reuben Burns [employer] Work Phone: [phone])350-[address] [place], [place] 1911507-02-2025 13:56-0400 Systolic blood ywmuencm869 mm[Hg]Reuben Burns [employer] OPERATOR-[employer] Work Phone: [phone])785-[address] [place], [place] 1911507-01-2025 14:59-0400 Body rtnaez363.5 cmReuben Burns [employer] OPERATOR-[employer]OTT[employer] Work Phone: [phone] [place], [place] 1911507-01-2025 14:59-0400 Body mass index (BMI) [Ratio]26.45 kg/u9UyrrdReuben Burns [employer] OPERATOR-[employer]OTT[employer] Work Phone: [phone])166-[address] [place], [place] 1911507-01-2025 14:59-0400 Body spywxr30.59 kgReuben Burns [employer] OPERATOR-[employer]OTT[employer] Work Phone: [phone] [place], [place] 1911507-01-2025 14:59-0400 Heart rate62 /Torreymurali Burns [employer] OPERATOR[employer] Work Phone: [facility]11-08-2024 13:16-0500 Body .5 cmShy Wolf MD Work Phone: [facility]11-08-2024 13:16-0500 Body mass index (BMI) [Ratio]26.67 kg/v2InjybuShy Wolf MD Work Phone: [phone])757-[address] [place], [place] 1911511-08-2024 13:16-0500 Body vnuqsm22.13 kgShy Wolf MD Work Phone: [phone])000-[address] [place], [place] 1911511-08-2024 13:16-0500 Diastolic blood fwbbhlui22 mm[Hg]Shy Wolf MD Work Phone: 1(527)952-[address] [place], [place] 1911511-08-2024 13:16-0500 Heart rate62 /minShy Wolf MD Work Phone: [phone])082-[address] [place], [place] 1911511-08-2024 13:16-0500 Systolic blood qnkqkgud497 mm[Hg]hSy Wolf MD Work Phone: 3(465)527-[address] [place], [place] 1911509-04-2024 12:28-0400 Body gocxmx840.[address] [place], [place] 9678909-04-2024 12:28-0400 Body mass index (BMI) [Ratio]27.98 kg/m2Ely [address] [place] [address] 02-11-2024 12:28-0400Body pcpieo36.[address] [place] [address] 02-11-2024 12:28-0400Diastolic blood vspsljez63 mm[Hg][address]09-04-2024 12:28-0400Systolic blood vjsbyfqu040 mm[Hg][address]01-26-2024 11:15-0500Body ukwmnb576.48 cmSuhas Garrett Other [place] [employer] Other 495347-69-3705 11:15-0500Body mass index (BMI) [Ratio] 28.53 kg/z7Tjqbi Kunadan Other [employer] Other 01-26-2024 11:15-0500Body cidolo84.76 kgCarterraquel Garrett Other [employer] Other 01-26-2024 11:15-0500Diastolic blood mm[Hg] Suhas Ugo Other [employer] Other 01-26-2024 11:15-0500Respiratory rate20 /minSuhas Ugo Other [employer] Other 01-26-2024 11:15-3385IlY4% (BldA) [Mass fraction]99 % Suhasraquel Mayoadan Other [employer] Other 01-26-2024 11:15-0500Systolic blood afppiwmj656 mm[Hg] Suhas Garrett Other [employer] Other 01-11-2024 11:09-0500Body lnjemu997.5 cmShy Wolf MD Work Phone: [facility]01-11-2024 11:09-0500 Body mass index (BMI) [Ratio]27.98 kg/d0UerdseShy Wolf MD Work Phone: [facility]01-11-2024 11:09-0500 Body zaowca66.4 kgShy Wolf MD Work Phone: [facility]01-11-2024 11:09-0500 Diastolic blood sheahriy33 mm[Hg]Shy Wolf MD Work Phone: [facility]01-11-2024 11:09-0500 Heart rate60 /minShy Wolf MD Work Phone: [facility]01-11-2024 11:09-0500 Systolic blood mm[Hg]Shy Wolf MD Work Phone: [facility]12-22-2023 11:00-0500 Body gqekro836.48 cmSuhas Garrett Other [employer] Other 181293-35-8919 11:00-0500Body mass index (BMI) [Ratio]27.8 kg/p1AdoceSuhas Garrett Other [employer] Other 12-22-2023 11:00-0500Body .95 kgSuhas Garrett Other [employer] Other 12-22-2023 11:00-0500Diastolic blood mm[Hg] Suhas Garrett Other [employer] Other 12-22-2023 11:00-0500Respiratory rate18 /minSuhas Garrett Other [employer] Other 12-22-2023 11:00-9361NkI3% (BldA) [Mass fraction]96 % Suhas Garrett Other [employer] Other 12-22-2023 11:00-0500Systolic blood nwhoonnh327 mm[Hg] Suhas Garrett Other [employer] Other 09-22-2023 10:30-0400Body erywfh119.48 cmSuhas Garrett Other [employer] Other 09-22-2023 10:30-0400Body mass index (BMI) [Ratio] 27.98 kg/g2Rowba Gaeladan Other [employer] [employer] Other 09-22-2023 10:30-0400Body wocddq53.4 kgCarterraquel Garrett Other [place] [employer] Other 09-22-2023 10:30-0400Diastolic blood ymxzrwax67 mm[Hg] Suhas Garrett Other [place] [employer] Other 09-22-2023 10:30-0400Respiratory rate16 /minCarterraquel Garrett Other [place] [employer] Other 09-22-2023 10:30-0917KvD6% (BldA) [Mass fraction]91 % Suhas Gaeladan Other [place] [employer] Other 09-22-2023 10:30-0400Systolic blood cctunpwt497 mm[Hg] Suhas Garrett Other [place] [employer] Other 07-18-2023 11:32-0400Body atzusr203.48 cmSuhas Hoffman Ugo Work Phone: [phone]-Pcksr [place] [employer] [address] DO Work Phone: 1(337) 518-776007-18-2023 11:32-0400Body mass index (BMI) [Ratio] 27.07 kg/k0Hdluh P Ugo Work Phone: [phone]-Ewgfj [place] [employer] 250 DO Work Phone: 1(781) 148-829507-18-2023 11:32-0400Body surface area Derived from formula1.68 x6Juayi P Gaels Work Phone: [phone]-Dychp [place] [facility] [address] DO Work Phone: [phone]) 881-135007-18-2023 11:32-0400Body lqhqzi61.13 kgSuhas Mayoadan Work Phone: [phone]-Hpidc [place] [facility] 250 DO Work Phone: 1(517) 216-333807-18-2023 11:32-0400Diastolic blood wdmrzudd10 mm[Hg] Suhas Garrett Work Phone: [phone]-Vlfji [facility] [address] DO Work Phone: 1(297) 801-199507-18-2023 11:32-0400Heart rate68 /minSuhas Mayos Work Phone: [phone]-Hhlmw [facility] [address] DO Work Phone: 1(676) 957-987407-18-2023 11:32-0400Systolic blood rkqmlaha609 mm[Hg] Suhas Garrett Work Phone: [phone]-Priap [facility] [address] DO Work Phone: 1([phone]) 588-554306-30-2023 10:30-0400Body oetduu400.48 cmSuhas Garrett Other [employer] Other 06-30-2023 10:30-0400Body mass index (BMI) [Ratio] 27.98 kg/s7UgtprSuhas Garrett Other [employer] Other 06-30-2023 10:30-0400Body degqlw75.4 kgSuhas Garrett Other [employer] Other 06-30-2023 10:30-0400Diastolic blood ancoixcn55 mm[Hg] Suhas Garrett Other [employer] Other 06-30-2023 10:30-0400Respiratory rate16 /minSuhas Garrett Other [employer] Other 06-30-2023 10:30-2472SlY8% (BldA) [Mass fraction]98 % Suhas Garrett Other [employer] Other 06-30-2023 10:30-0400Systolic blood jhiwcvrz050 mm[Hg] Suhasraquel Garrett Other [employer] Other 04-14-2023 11:45-0400Body bmgifl806.48 cmSuhas Garrett Other [employer] Other 04-14-2023 11:45-0400Body mass index (BMI) [Ratio] 26.34 kg/z1JszjdSuhas Garrett Other [employer] Other 04-14-2023 11:45-0400Body ybnuqh81.32 kgSuhas Garrett Other [employer] Other 04-14-2023 11:45-0400Diastolic blood liehltsy10 mm[Hg] Suhas Garrett Other [employer] Other 04-14-2023 11:45-0400Respiratory rate16 /minSuhas Garrett Other [employer] Other 04-14-2023 11:45-8270AdQ7% (BldA) [Mass fraction]98 % Suhasraquel Garrett Other [employer] Other 04-14-2023 11:45-0400Systolic blood pijqjpir096 mm[Hg] Suhasraquel Mayoadan Other [employer] Other 02-13-2023 11:30-0500Body aodxur985.48 cmSuhas Garrett Other [employer] Other 02-13-2023 11:30-0500Body mass index (BMI) [Ratio] 26.85 kg/f5YdeneSuhas Garrett Other [employer] Other 02-13-2023 11:30-0500Body .59 kgCarterraquel Garrett Other [employer] Other 02-13-2023 11:30-0500Diastolic blood ychfizln09 mm[Hg] Suhas Ugo Other [employer] Other 02-13-2023 11:30-0500Respiratory rate16 /minBryraquel Garrett Other [employer] Other 02-13-2023 11:30-3708YbB3% (BldA) [Mass fraction]98 % Suhas Garrett Other [employer] Other 02-13-2023 11:30-0500Systolic blood mm[Hg] Suhas Garrett Other [employer] Other 11-09-2022 11:45-0500Body qmnafa088.48 cmCarterraquel Garrett Other [employer] Other 11-09-2022 11:45-0500Body mass index (BMI) [Ratio] 26.88 kg/u5Vztzy Kuns Other [employer] Other 11-09-2022 11:45-0500Body pbprpo47.68 kgCarterraquel Garrett Other [employer] Other 11-09-2022 11:45-0500Diastolic blood mm[Hg] Suhas Ugo Other [employer] Other 11-09-2022 11:45-0500Respiratory rate16 /minSuhas Garrett Other [employer] Other 11-09-2022 11:45-3477ViH0% (BldA) [Mass fraction]99 % Suhas Garrett Other [employer] Other 11-09-2022 11:45-0500Systolic blood qakqjylj873 mm[Hg] Suhas Garrett Other [employer] Other 09-16-2022 10:15-0400Body uglwbx550.48 cmSuhas Garrett Other [employer] Other 09-16-2022 10:15-0400Body mass index (BMI) [Ratio] 27.07 kg/c8Xvevr Kunadan Other [employer] Other 09-16-2022 10:15-0400Body gremca75.13 kgCarterraquel Garrett Other [employer] Other 09-16-2022 10:15-0400Diastolic blood qtxxcdni94 mm[Hg] Suhas Garrett Other [employer] Other 09-16-2022 10:15-0400Respiratory rate16 /minSuhas Garrett Other [employer] Other 09-16-2022 10:15-4398QxN8% (BldA) [Mass fraction]97 % Suhas Garrett Other [employer] Other 09-16-2022 10:15-0400Systolic blood sdhbpudu311 mm[Hg] Suhas Garrett Other [employer] Other 09-15-2022 10:45-661218 1Bprimo Garrett Work Phone: [phone] [address] Work Phone: Comment on above:[id number] 15:45-0400Body scvjel669.48 cmShuas Garrett Other [employer] Other 09-08-2022 15:45-0400Body mass index (BMI) [Ratio]26.7 kg/i4SbhmuSuhas Garrett Other [employer] Other 09-08-2022 15:45-0400Body vjyojg55.23 kgSuhas Garrett Other [employer] Other 09-08-2022 15:45-0400Diastolic blood vjhusbxh44 mm[Hg] Suhas Garrett Other [employer] Other 09-08-2022 15:45-0400Respiratory rate16 /minSuhas Garrett Other [employer] Other 09-08-2022 15:45-0684EeH4% (BldA) [Mass fraction]96 % Suhas Garrett Other [employer] Other 09-08-2022 15:45-0400Systolic blood pmjjorwi201 mm[Hg] Suhas Garrett Other [facility] Other 07-20-2022 11:04-0400Body nfdlta360.48 cmSuhas Garrett Work Phone: [id number]-Vbtfo [facility] [address] [facility] Work Phone: 1(676) 964-765607-20-2022 11:04-0400Body mass index (BMI) [Ratio] 26.16 kg/a5DsnetSuhas Garrett Work Phone: [phone]-Jdeis [facility] [address] DO Work Phone: 1(842) 897-797407-20-2022 11:04-0400Body surface area Derived from formula1.66 m2FgztbSuhas Garrett Work Phone: [phone]-Uhvur [facility] [address] DO Work Phone: 1(499) 421-757007-20-2022 11:04-0400Body .86 kgSuhas Garrett Work Phone: [phone]-Zkzam [facility] [address] DO Work Phone: 1(878) 203-274407-20-2022 11:04-0400Diastolic blood rvhkveju22 mm[Hg] Suhas Garrett Work Phone: [phone]-Bsbxv [facility] [address] DO Work Phone: 1(724) [phone] 11:04-0400Heart rate56 /minSuhas Garrett Work Phone: mp484-6819GK-Lqhjv [facility] DO Work Phone: 1(668) [phone] 11:04-0400Systolic blood nzcguljw286 mm[Hg] Suhas Garrett Work Phone: mp291-8490VK-Hovqz [facility] 250 DO Work Phone: 1([phone]) 491-254707-20-2022 11:00-0400Diastolic blood fpvehowf04 mm[Hg] Suhas Garrett Work Phone: [phone]) [phone]-Aprbt [facility] 250 DO Work Phone: 1(889) 801-701707-20-2022 11:00-0400Systolic blood mm[Hg] Suhas Garrett Work Phone: 1([phone]-Euicb [facility] DO Work Phone: 1(866) 379-475607-07-2022 11:39-0400Diastolic blood khdubhbw44 mm[Hg] Suhas Garrett Work Phone: 1(877)[address] [place] [address] Work Phone: 1([phone] 11:39-0400Systolic blood mbgthdoq945 mm[Hg] Suhas Garrett Work Phone: 1(651)[address] [place] [address] Work Phone: 1(198) [phone] 11:22-0400Diastolic blood ujxxlivo04 mm[Hg] Suhas Garrett Work Phone: 1(807)[address] [place] [address] Work Phone: 1(411) [phone] 11:22-0400Systolic blood vivxamso150 mm[Hg] Suhas Garrett Work Phone: 1(588)[address] [place] [address] Work Phone: 1(757) [phone] 11:17-0400Body hmuqmf220.48 cmSuhas Garrett Work Phone: 1(787)[address] [place] [address] Work Phone: [phone] 11:17-0400Body mass index (BMI) [Ratio] 26.52 kg/k7CejagSuhas Garrett Work Phone: 1(766)[facility]34[facility] Work Phone: [phone] 11:17-0400Body surface area Derived from formula1.67 f1VkfszSuhas Garrett Work Phone: 1(526)[address] [place] [address] Work Phone: 1(270) [phone] 11:17-0400Body qoiviy97.77 kgSuhas Garrett Work Phone: 1(419)[address] [place] [address] Work Phone: 1(409) [phone] 11:17-0400Diastolic blood jacwxkdj97 mm[Hg] Suhas Garrett Work Phone: [facility] Work Phone: 1(989) 911-609507-07-2022 11:17-0400Heart rate60 /minSuhas Garrett Work Phone: [facility] Work Phone: 1(573) [phone] 11:17-0400Systolic blood okyliezq270 mm[Hg] Suhas Garrett Work Phone: [facility] Work Phone: 1([phone] 13:30-0400Body uoqqkk655.48 cmSuhas Garrett Other [employer] Other 04-25-2022 13:30-0400Body mass index (BMI) [Ratio] 26.34 kg/v1EddqnSuhas Garrett Other [employer] Other 04-25-2022 13:30-0400Body heoynh35.32 kgSuhas Garrett Other [employer] Other 04-25-2022 13:30-0400Diastolic blood hbdkldli68 mm[Hg] Suhas Garrett Other [employer] Other 04-25-2022 13:30-0400Respiratory rate18 /minSuhas Garrett Other [employer] Other 04-25-2022 13:30-5687AtT1% (BldA) [Mass fraction]99 % Suhas Garrett Other [employer] Other 04-25-2022 13:30-0400Systolic blood mm[Hg] Suhas Garrett Other [employer] Other 02-24-2022 13:30-0500Body ubpodh757.48 cmCarterraquel Garrett Other [employer] Other 02-24-2022 13:30-0500Body mass index (BMI) [Ratio] 26.52 kg/v0Yfxan Kunadan Other [employer] Other 02-24-2022 13:30-0500Body smpxoh13.77 kgCarterraquel Garrett Other [employer] Other 02-24-2022 13:30-0500Diastolic blood jalflirn18 mm[Hg] Suhas Garrett Other [employer] Other 02-24-2022 13:30-0500Respiratory rate16 /minSuhas Garrett Other [employer] Other 02-24-2022 13:30-5363IqX4% (BldA) [Mass fraction]99 % Suhas Garrett Other [employer] Other 02-24-2022 13:30-0500Systolic blood mm[Hg] Suhas Ugo Other [employer] Other 11-18-2021 13:30-0500Body kmetsa042.48 cmSuhas Garrett Other [employer] Other 11-18-2021 13:30-0500Body mass index (BMI) [Ratio] 25.97 kg/l7YhmyuSuhas Garrett Other [employer] Other 11-18-2021 13:30-0500Body aixelz40.41 kgSuhas Garrett Other [employer] Other 11-18-2021 13:30-0500Diastolic blood ofjgqwgj49 mm[Hg] Suhas Garrett Other [employer] Other 11-18-2021 13:30-0500Respiratory rate17 /minSuhas Garrett Other [employer] Other 11-18-2021 13:30-6382BbB4% (BldA) [Mass fraction]98 % Suhas Garrett Other [employer] Other 11-18-2021 13:30-0500Systolic blood bnawqpbm223 mm[Hg] Suhas Garrett Other [employer] Other Encounters Encounter DateEncounter TypeCare ProviderFacilityStart: 02-14-2025 End: 40-18-1760ojlflaaptiLidrdivJorge Weston MDFacility:PM [facility] Start: 01-14-2025 End: 61-69-7323Xxbctl outpatient visit 25 minutesShy Wolf MD Work Phone: [facility] CenterComment on above:Nonrheumatic aortic valve stenosis (Primary Dx); 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; Hyperlipidemia, unspecified hyperlipidemia type; PMR (polymyalgia rheumatica) (Multi); Hypothyroidism, unspecified type; BMI 27.0-27.9,adult; Never smoked any substance; OverweightStart: 01-14-2025 End: 36-41-8871vyzzakhywdSUHPEQ M IBRPeterson [facility] AmbulatoryStart: 12-21-2024 End: 65-80-4817Vbmyfwubdb hospital visit by Julia Baker Echo/Vasc [facility] 2[facility]Comment on above:Aortic valve stenosis, etiology of cardiac valve disease unspecifiedStart: 12-21-2024 End: 79-22-0604wombozoodiQQUHVVMercy Health Willard Hospitaltart: 12-07-2024 End: 80-90-4506Evvuoj outpatient visit 15 Silkemayo Gibbs Grant BURGER Work Phone: uh [facility] CenterComment on above: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 (Primary Dx); BMI 26.0-26.9,adultStart: 12-07-2024 End: 14-51-6723nsyvjyaeheUEUPJCape Fear Valley [facility] AmbulatoryStart: 10-25-2024 End: 74-71-2873dgflqzqkoxXisboit Vytautas Giedraitis MDFacility:PM [facility] Start: 09-13-2024 End: 66-61-9009hkxdbnywxzUhbfksd Vytautas Giedraitis MDFacility:[facility] Start: 07-28-2024 End: 62-89-7325yikzyisagtUnrwv UgoFacility:[facility] Start: 05-25-2024 End: 27-37-4087cnhwjpsjdbTdewb KunsFaveterans memorial hospital:[facility] Start: 04-16-2024 End: 55-58-0003Pmggyh outpatient visit 25 minutesShy Wolf MD Work Phone: uh [facility] CenterComment on above:Aortic valve stenosis, etiology of cardiac valve disease unspecified (Primary Dx); Essential hypertension; Hyperlipidemia, unspecified hyperlipidemia type; Never smoked any substance; BMI 26.0-26.9,adult; Hypothyroidism, unspecified typeStart: 04-16-2024 End: 24-16-6066ygbitjmtoiDSOSPW [facility] AmbulatoryStart: 02-11-2024 End: 91-22-3262Xouonycsct hospital visit by Julia Baker Echo/Vasc Room 2[facility] SouthComhel[facility] on above:Nonrheumatic aortic valve stenosis; Aortic valve stenosis, etiology of cardiac valve disease unspecifiedStart: 02-11-2024 End: 56-23-1774glbavxjcppKPIGQR M [facility] Centertart: 10-14-2023 End: 57-11-9309bpqxhnjclgPtyjp KunsFacility:[facility] Start: 09-03-2023 End: 21-88-8101mdfmfzwzusVxarj GaelsFacility:[facility] Start: 07-18-2023 End: 26-33-0839jvgbelxttqOwflh Gaels Other [employer] Other Start: 38-84-8584Ffiyindas encounterBryraquel MayosFPG [facility] CastaliaStart: 07-15-2023 End: 63-15-1134awabtxlxzrEynuy Kuns Other [employer] Other Start: 26-23-7398Grnbadagm encounterBryraquel MayosFPG [facility] [place]aliaStart: 07-10-2023 End: 25-86-7042rjoevnfwtqVfmoz Kuns Other [employer] Other Start: 63-66-0740Uqgkummmd encounterBryraquel MayosFPG [facility] [place]aliaStart: 07-07-2023 End: 13-59-2792fsvidqkcgxJwqvr Kuns Other [employer] Other Start: 73-23-4684Qzhyijgro encounterBryraquel MayosFPG [facility] [place]aliaStart: 07-04-2023 End: 01-71-2510mkebsojodvIohuh Kuns Other [employer] Other Start: 46-86-1652Orojlz outpatient visit 15 minutes Suhas MayosFPG [facility] [place]aliaStart: 06-19-2023 End: 47-13-0697xykfbejyqaVvhiy Kuns Other [employer] Other Start: 51-93-2154Jvgyrwyfu encounterSuhas MayoCory Family Medicine CastaliaStart: 06-19-2023 End: 58-23-1497Qntwdh outpatient visit 25 minutesShy Wolf MD Work Phone: [facility]Comment on above:Aortic valve stenosis, etiology of cardiac valve disease unspecified; Essential hypertension; Hyperlipidemia, unspecified hyperlipidemia type; Never smoked any substanceStart: 05-30-2023 End: 57-60-5142zezdsqklcoTuqbv Kuns Other [employer] Other Start: 45-09-9741Gbzbcg outpatient visit 25 minutes Suhas MayoadanLEYDI [facility] [place]aliaStart: 05-28-2023 End: 50-30-7674ulhwgcehsmDeviu Kuns Other [employer] Other Start: 00-79-3456Tsyvykrhq encounterSuhas MayoDereckShravan [facility] CastaliaStart: 04-23-2023 End: 47-70-9716qpfwpfglzxOyvnb Kuns Other [employer] Other Start: 65-08-2951Rzpayidup encounterSuhas MayoDereckShravan [facility] [place]aliaStart: 04-18-2023 End: 45-26-8537tmdwwbazluRkofi Kuns Other [employer] Other Start: 72-39-5652Joshtcmeh encounterSuhas MayoadanFPG [facility] [place]aliaStart: 63-23-3065Ouyuz UpdateSuhas Garrett Work Phone: [phone]-DuyqvDeer [facility] 250 DO Work Phone: Start: 02-28-2023 End: 32-82-0914svpdnjmcnnTeeka Kuns Other [employer] Other Start: 36-52-5351Pqvkpi outpatient visit 15 minutes Suhas GaelCory Family Medicine CastaliaStart: 03-18-1333ebrmnoualeVx. Suhas GarrettValley Medical Centerity:9844Start: 01-27-2023 End: 55-88-0811unnlrzuenzRamld Kuns Other [employer] Other Start: 03-25-3412Rilecyyrz encounterBryraquel Sommers [facility] [place]aliaStart: 07-83-7588Wauqlu outpatient visit 25 minutesSuhas Garrett Work Phone: [phone]-RwtuyApril [place] [address] DO Work Phone: Start: 10-22-3371sfewmrqgofPa. Shy Agosto [facility] Facility:[id number]: 12-06-2022 End: 94-84-4873lfswwqvcpqMwbkz Kuns Other [employer] Other Start: 76-57-6448Qalszc outpatient visit 15 minutes Suhas GaelCory [facility] [place]aliaStart: 09-20-2022 End: 88-59-4860tdulnjqtsnZfzso Kuns Other [employer] Other Start: 98-73-9107Ayqvsb outpatient visit 15 minutes Suhas GaelCory [facility] CastaliaStart: 08-14-2022 End: 71-69-1996mmrozoqufzTnxbd Kuns Other [employer] Other Start: 25-98-3695Vgqhqkjsh encounterBryraquel GaelCory [facility] [place]aliaStart: 07-22-2022 End: 82-93-0096coqlfyrtyeHhovp Kuns Other [employer] Other Start: 69-25-2997Csssxh outpatient visit 15 minutes Suhas Sommers [facility] [place]aliaStart: 04-17-2022 End: 34-25-4744zsnzssnccdSnihv Kuns Other [employer] Other Start: 83-81-5225Jvvcxx outpatient visit 15 minutes Suhas ManciniG [facility] [place]aliaStart: 04-10-2022 End: 21-95-3695pcnobujemxFofkx Kuns Other [employer] [place] Other Start: 88-41-0757Fqzerreug encounterBryraquel GarrettFPG [facility] [place]aliaStart: 04-03-2022 End: 02-72-3398cjrdrtejwcOtilk Kuns Other [employer] [place] Other Start: 91-05-6972Wmwckpjrp encounterBryraquel GarrettFPG [facility] [place]aliaStart: 04-02-2022 End: 12-78-5044iyrczhmpvlVqioz Kuns Other [facility] [place] Other Start: 08-63-7365Asifgmxhz encounterBryraquel GarrettFPG [facility] [place]aliaStart: 02-26-2022 End: 83-93-2734rinzzfdirwUaohy Kuns Other [facility] [place] Other Start: 19-45-0382Yumzmkdnh encounterBryraquel GarrettFPG [facility] [place]Start: 02-25-2022 End: 60-46-9292wfkgrcjkldZzxlb Kuns Other [employer] Other Start: 97-63-4894Dowhmvlcx encounterBryraquel MayosFPG [facility] [place]Start: 02-22-2022 End: 52-61-3712drqcaswezxSiqdu Kuns Other [facility] Other Start: 81-72-8043Oqlyvg outpatient visit 25 minutes Suhas MayoadanLEYDI [facility] [place]aliaStart: 03-25-9267Rtfijqd encounter procedureSuhas Garrett Work Phone: [phone]-XawmbGlencoe Regional Health Services [address] [place] Work Phone: Start: 02-20-2022 End: 78-15-9565ylscbiytaiDHFPVDK M MANONFacility:T4Wjfoh: 02-14-2022 End: 56-92-5229thlqwzezacArapb Kuns Other [facility] Other Start: 87-89-9781Cspdrz outpatient visit 25 minutes Suhas Sommers [facility] [place]Start: 01-11-2022 End: 12-16-1885buzuuwfoncCapjn Kuns Other [facility] Other Start: 87-60-7718Ieybcjt evaluation of patient and reportBryraquel MayoadanLEYDI [facility] [place]aliaStart: 66-25-3826Jllezugtm encounter Suhas GaeladanLEYDI [facility] [place]aliaStart: 23-68-1219Wkqfbw outpatient visit 10 minutesSuhas Garrett Work Phone: [phone]-YulaaGlencoe Regional Health Services 250 DO Work Phone: Start: 18-97-0768almprhtvxyEu. Bryan Patrick Kuns Facility:[id number]: 12-20-2021 End: 18-03-4618volyfbfdlxEpjok Kuns Other [employer] Other Start: 07-87-5778Gmburzbar encounterSuhas MayoadanLEYDI [facility] [place]aliaStart: 61-24-3489Zetfgd outpatient visit 25 minutesSuhas Garrett Work Phone: [facility] Work Phone: Start: 11-02-2021 End: 46-18-3241dygowziquiQnckd Kuns Other [employer] Other Start: 49-33-5457Cxjhhvvnm encounterBryraquel GarrettFPG [facility] [place]aliaStart: 10-01-2021 End: 62-25-7614sinkgclornWvihh Kuns Other [employer] Other Start: 93-36-3962Aoikll outpatient visit 15 minutes Suhas GarrettFP[facility] [place]aliaStart: 09-10-2021 End: 20-12-5199ltrtbqlvqnQdhtm Kuns Other [employer] Other start: 63-65-8093Zxqodzwen encounterBryraquel GarrettFPG [facility] [place]aliaStart: 08-20-2021 End: 10-70-9071phoduumhbrZtrpw Kuns Other [employer] Other Start: 22-98-7241Yntmaeskl encounterBryraquel GarrettFPG [facility] [place]aliaStart: 08-02-2021 End: 07-97-7315nafewsjaeiAkzog Kuns Other [employer] Other Start: 82-28-0693Srypkg outpatient visit 15 minutes Suhas GarrettFP[facility] [place]aliaStart: 07-25-2021 End: 02-35-2420duzcdtancpKdtsg Kuns Other [employer] Other Start: 70-62-4218Jksavevhr encounterBryraquel GarrettFPG [facility] [place]aliaStart: 05-08-2021 End: 26-27-0922iqluoryfqiYfxnc Kuns Other [employer] Other start: 26-94-8321Paebflbzt encounterCarterraquel Matthieu [facility] [place]aliaStart: 04-26-2021 End: 80-64-6293szshkannhiGydpj Kuns Other [facility] [place] Other Start: 25-62-4116Ztrtjw outpatient visit 25 minutes Suhas Sommers [facility] [place] Procedures DateProcedureProcedure Detail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Start: 97-02-2893Rwha [facility] r-t 2d w/wom-mode compl spec&colr Clayton Wolf MD Work Phone: Start: 35-97-3885RxhshxoasrnpobyeFmcua P Kuns Work Phone: Start: 33-38-5213ZllreavpayywztinCnmim P Kuns Work Phone: AppendectomyBryan P Kuns Work Phone: CholecystectomyBryan P Kuns Work Phone: Operation on ovaryBryan P Kuns Work Phone: ThyroidectomyBryan P Kuns Work Phone: Total colonoscopyBryan P Kuns Work Phone: Plan of Treatment DateCare ActivityDetailAuthorStart: 65-84-5133XNjM/Tdap/Td Vaccines (2 - Td or Tdap)DTaP/Tdap/Td Vaccines (2 - Td or Tdap)[facility] Start: 01-26-2026 End: 83-50-3224Qujpabd encounter ctjxyxgmp74/20/2026 11:00 AM EDT Office Visit [facility] [address] [facility] [address] [place] [address] Shy Wlof MD [address] [facility] [address], [address] [place] [address] [facility]Start: 67-92-7743ThxixssxdcoxhnckHnsffgisojhttr [facility]: 12-20-2025 End: 92-16-5869Sieudgz encounter mhrhmplui13/14/2026 10:45 AM EDT Appointment [place] [address] [facility] [address] [place] [address] [facility]: 12-14-2025 End: 37-24-2293KS Heart TransthoracicTransthoracic Echo Complete Echocardiography Routine Nonrheumatic aortic valve stenosis Expected: 12/14/2025 (Approximate), Expires: 01/14/2027[facility] Service Area Work Phone: Comment on above:Expected: 12/14/2025 (Approximate), Expires: 01/14/2027Start: 03-01-2026Medicare Annual Wellness VisitMedicare Annual Wellness Visit (AWV)[facility]: 02-10-2025 EchocardiographyEchocardiogramUnSCCI Hospital [facility]: 02-07-2025 Influenza vaccinationInfluenza Vaccine (#1)[facility] Start: 01-14-2025 End: 46-01-9507GC Heart TransthoracicTransthoracic Echo Complete Echocardiography Routine Aortic valve stenosis, etiology of cardiac valve disease unspecified Expected: 01/14/2025 (Approximate), Expires: 04/16/2026[facility] Service Area Work Phone: Comment on above:Expected: 01/14/2025 (Approximate), Expires: 04/16/2026Start: 01-14-2025 End: 89-33-8470Kemfhkx encounter cjndpjoxa10/08/2025 11:00 AM EDT Office Visit [address] [place] [address] Shy Wolf MD [address] [facility] [address], [address] [place] [address] [facility]: 12-21-2024 End: 68-99-0219Ppksqtf encounter accdqcvyo66/15/2025 12:30 PM EDT Appointment [place] [address] [place] [address] [place] [address] [facility]: 93-09-3318SFTPD-19 Vaccine ( season)COVID-19 Vaccine ( season)[facility]: 03-16-2024 End: 47-48-6497Lcmcefg encounter tddfgndry40/08/2024 11:20 AM EDT Office Visit [address] [address] Shy Wolf MD [address] [facility] [address], [address] [address] [facility]: 56-58-2248Lqgecselx for osteoporosisBone Density [facility]: 02-11-2024 End: 58-50-8065Bapxkif encounter iujsvwxwd55/04/2024 12:30 PM EDT Appointment [address] [address] [facility]: 88-23-2826GNTBL-19 Vaccine ( season)COVID-19 Vaccine ( season)[facility]: 02-08-2024 Influenza vaccinationInfluenza Vaccine (#1)[facility] Start: 02-08-2024 End: 19-08-5865QU Heart TransthoracicTransthoracic Echo (TTE) Complete Echocardiography Routine Aortic valve stenosis, etiology of cardiac valve disease unspecified Expected: 02/08/2024 (Approximate), Expires: 06/19/2025[facility] Service Area Work Phone: Comment on above:Expected: 02/08/2024 (Approximate), Expires: 06/19/2025Start: 37-23-0982SGW, Provider: Shy Wolf, Status: Pen, Time: 11:00 AMFUV, Provider: Shy Wolf, Status: Pen, Time: 11:00 [place] [address] DO Work Phone: Start: 48-11-1245AHCVR-19 Vaccine (5 - Moderna series) COVID-19 Vaccine (5 - Moderna series)[facility]: 50-53-8295WLFS, Provider: SAMUEL HHVI ULTRASOUND 01,[id number], Status: Pen, Time: 10:45 AMECHO, Provider: SAMUEL YII ULTRASOUND 01,[id number], Status: Pen, Time: 10:45 [facility] DO Work Phone: Start: 28-86-7439IOS, Provider: Shy Wolf, Status: Pen, Time: 11:20 AMFUV, Provider: Shy Wolf, Status: Pen, [facility]: [facility]:20 [facility]: Start: 84-14-3133YBQIQNX, Provider: SAMUEL YII ULTRASOUND 01,[id number], Status: Pen, Time: 12:30 PMCAROTID, Provider: SAMUEL HHVI ULTRASOUND 01,[id number], Status: Pen, Time: 12:30 [facility] Work Phone: start: 61-79-2718VAMX, Provider: SAMUEL HHVI ULTRASOUND 01,[id number], Status: Pen, Time: 10:45 AMECHO, Provider: SAMUEL HHVI ULTRASOUND 01,[id number], Status: Pen, Time: 10:45 [facility] Work Phone: start: 45-61-9840YJTCLDT, Provider: SAMUEL HHVI ULTRASOUND 01,[id number], Status: Pen, Time: 2:30 PMCAROTID, Provider: SAMUEL HHVI ULTRASOUND 01,[id number], Status: Pen, Time: 2:30 [facility] Work Phone: start: 40-31-0572URVF, Provider: SAMUEL HHVI ULTRASOUND 01,[id number], Status: Pen, Time: 1:30 PMECHO, Provider: SAMUEL HHVI ULTRASOUND 01,[id number], Status: Pen, Time: 1:30 [facility] Work Phone: Start: 11-75-1902TRNDSKBQ, Provider: MAGDA DANIEL OCCUPATIONAL HEALTH SPECIALIST 1,[id number], Status: Pen, Time: 11:00 AMNURSEVST, Provider: MAGDA DANIEL OCCUPATIONAL HEALTH SPECIALIST 1,[id number], Status: Pen, Time: 11:00 AM[facility] Work Phone: Start: 68-48-9400Oikmwffqy B Vaccines (1 of 3 - Risk 3-dose series)Hepatitis B Vaccines (1 of 3 - Risk 3-dose series)[facility]: 30-70-8073Grvhpovia A Vaccines (1 of 2 - Risk 2- dose series)Hepatitis A Vaccines (1 of 2 - Risk 2-dose series)[facility]: 51-05-4557Sxdpgoefsg measurementCreatinine Level [facility]: 09-73-1255Keybx panelLipid Panel [facility]: 03-04-1937Medicare Annual Wellness Visit Medicare Annual Wellness Visit (AWV)[facility]: 54-41-2377Ljgfdwnjw measurementPotOklahoma ER & Hospital – Edmond Start: 87-82-9292Hpgvpqh stimulating hormone measurementTSWillow Crest Hospital – MiamiECG 12 LeadECG 12 Lead ECG Routine 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 Ordered: 12/08/2024[facility] Area Work Phone: Comment on above:Ordered: 12/08/2024 End: 92-07-0215YP [facility] TransthoracicK[facility] Work Phone: Comment on above:Once for 1 Occurrences starting 02/11/2024 until 02/11/2024 Immunizations Immunization DateImmunizationNotesCare IwktbuoiTsibduzy34-10-3664Wfuajninxltj conjugate vaccine, 20-valent (PREVNAR 20)Shy Wolf MD Work Phone: [facility] Work Phone: [phone] COVID-19 vaccine, 12 years and older (50mcg/0.5mL)(Spikevax)Shy Wolf MD Work Phone: [facility] Work Phone: [phone] trivalent influenza vaccine, adjuvanted, preservative freeShy Wolf MD Work Phone: [facility] Work Phone: [phone] virus vaccine, unspecified formulationReuben Burns LIQUID HYDROGEN PLANT OPERATOR-BOTTOM SCRUBBER Work Phone: [facility] Work Phone: [phone] SYNCYTIAL VIRUS (RSV), ELIGIBLE PTS, 0.5 ML (ABRYSVO)Shy Wolf MD Work Phone: [facility] Work Phone: [phone], Seasonal, Quadrivalent, AdjuvantedShy Wolf MD Work Phone: [facility] Work Phone: [phone] COVID-19 vaccine, 12 years and older (50mcg/0.5mL)(Spikevax)Shy Wolf MD Work Phone: [facility] Work Phone: [phone] virus vaccine, unspecified formulationEly 2[facility] Work Phone: [phone] COVID-19 Bivalent 50 MCG/0.5ML Intramuscular SuspensionSuhas Garrett Work Phone: mp-[facility] 093 DO Work Phone: [phone] Quadrivalent 0.5 ML Intramuscular Prefilled SyringeBryraquel P Ugo Work Phone: [phone]-VwbryGlencoe Regional Health Services 250 DO Work Phone: [phone], seasonal, injectableBryan Kuns Other [facility] Qgiv Other [id number] COVID-19 Vaccine 100 MCG/0.5ML Intramuscular SuspensionBryan P Kuns Work Phone: [facility] Work Phone: [phone] COVID-19 Vaccine 100 MCG/0.5ML Intramuscular SuspensionBryan P Kuns Work Phone: [facility] Work Phone: [phone], seasonal, injectableBryan Kuns Other [employer] [place] Other [id number] COVID-19 Vaccine 100 MCG/0.5ML Intramuscular SuspensionBryan P Kuns Work Phone: [facility] Work Phone: [phone] COVID-19 Vaccine 100 MCG/0.5ML Intramuscular SuspensionBryan P Kuns Work Phone: [facility] Work Phone: [phone] polysaccharide vaccine, 23 valentBryan Gaels Other [facility] Other [id number] trivalent influenza vaccine, adjuvanted, preservative freeBryan P Kuns Work Phone: [facility] Work Phone: [phone], seasonal, injectableBryan Kuns Other [employer] Other [id number] virus vaccine, unspecified formulationBryan P Kuns Work Phone: [facility] Work Phone: [phone], seasonal, injectableBryan Kuns Other [employer] [place] Other [id number] vaccine recombinantBryan Kuns Other [employer] [place] Other [id number], high dose seasonal, preservative-freeBryan P Kuns Work Phone: [facility] Work Phone: [phone]jgxhusfih, seasonal, injectableBryan Kuns Other [employer] Other [id number] vaccine recombinantBryan Kuns Other [employer] Other [id number] toxoid, reduced diphtheria toxoid, and acellular pertussis vaccine, adsorbedBryan Kuns Other [employer] Other [id number] trivalent influenza vaccine, adjuvanted, preservative freeShy Wolf MD Work Phone: [facility] Work Phone: [phone] [phone]uhryiv virus vaccine, unspecified formulationBryan P Kuns Work Phone: [facility] Work Phone: [phone] 634-920811-708229-11-1848mcznswfjn virus vaccine, unspecified formulationBryan P Kuns Work Phone: [facility] Work Phone: [phone] 890-100010-677265-09-1897Dowjtdwx trivalent influenza vaccine, adjuvanted, preservative freeBryan P Kuns Work Phone: [facility] Work Phone: [phone] [phone]gpoauevzx conjugate vaccine, 13 valent Shy Wolf MD Work Phone: [facility] Work Phone: [phone] 727-609412-272240-82-4946gpaxsblitfwx conjugate vaccine, 13 valent Suhas Gaels Other [facility] [employer] Other 10-322898-72-4530Mzcibehl trivalent influenza vaccine, adjuvanted, preservative freeCarteran P Gaels Work Phone: [facility] Work Phone: [phone]386hmoiuhrrz virus vaccine, unspecified formulationBryan P Kuns Work Phone: [facility] Work Phone: [phone]323tqxvdlbkjawk conjugate vaccine, 13 valent Suhas Dalton Garrett Work Phone: [facility] Work Phone: [phone]tadhpznal, injectable, quadrivalent, contains preservativeBryan P Kuns Work Phone: [facility] Work Phone: [phone]nucxmfrt virus vaccine, unspecified formulationBryan P Kuns Work Phone: [facility] Work Phone: [phone]mjqylvxz, seasonal, injectable, preservative freeCarteran P Kuns Work Phone: [facility] Work Phone: [phone]821yzclbdzxw virus vaccine, whole virusCarteran P Gaels Work Phone: [facility] Work Phone: [phone]lbxomrig, seasonal, injectableBryan P Kuns Work Phone: [facility] Work Phone: [phone]344ugdsqhioh virus vaccine, unspecified formulationCarteran P Kuns Work Phone: [facility] Work Phone: [phone]oegqorue, injectable, quadrivalent, contains preservativeBryan Kuns Other [employer] Other [id number] virus vaccine, unspecified formulationBryan P Kuns Work Phone: [facility] Work Phone: [phone]zkujjx virus vaccine, unspecified formulationBryan P Kuns Work Phone: [facility] Work Phone: [phone] 604-233601-000374-20-9429kkysawgop virus vaccine, unspecified formulationBryan P Kuns Work Phone: [facility] Work Phone: [phone] [phone]ri fazpkxpgp-L2C9-17, preservative-free, injectableBryan P Kuns Work Phone: [facility] Work Phone: [phone] 220-397805-235612-94-5932zvmymgqgo virus vaccineBryan P Kuns Work Phone: [facility] Work Phone: [phone]tvgjozlkr polysaccharide vaccine, 23 valentBryan P Kuns Work Phone: [facility] Work Phone: Payers DatePayer CategoryPayerPolicy [id number] Care (Private)[facility] .[id number] Private Health [id number] [id number] [id number] 2..0.653505.00400309-39-3325[place] [employer] [id number] 2..3.12694[id number] 2..1.333290.3.57[id number] 2..1.540873.3.57[id number] 2..1.715574.3.57[id number] 2..1.167793.3.57[id number] 2..1.097029.3.57[id number] 2.0.1.289028.3.57[id number] 2.0.1.722542.3.57[id number] 2.0.1.968951.3.57[id number] 2.0.1.299247.3.57[id number] 2.16.840.1.649898.3.57[id number] 2.16.840.1.261786.3.57[id number] 2.16.840.1.2[id number] 2.16.840.1.830552.3.579.2.531 [id number] 2.16.840.1.8[id number] 2.16.840.1.9[id number] 2.16.840.1.635478.3.579.2.531 Social History DateTypeDetailFacilityUnknown if ever smokedMary Bridge [facility] Other Start: 06-19-2023 End: 43-68-5871Sxo Assigned [facility] BirthN[facility]emisc[facility] [place] Other Start: 06-19-2023 End: 48-87-6697Sagvtmyz useCaffeine useAshtabula [facility] Work Phone: Start: 86-54-9659Gnjgxvm smoking status NHISNever smoked tobaccoUnDiley Ridge Medical Center Work Phone: Start: 96-66-4075Iszqwaj use and exposureSmokeless tobacco non-userUnDiley Ridge Medical Center Work Phone: Start: 27-08-5007Plc Assigned At BirthNot on file [facility] Work Phone: Start: 06-09-2023 End: 76-02-2159Dpbyfqia to SARS-CoV-2 (event)Not sureUnDiley Ridge Medical CenterStart: 04-16-2024 End: 10-70-9961Hvausbabv beverage intakeCurrent drinker of alcohol (finding) [facility] Work Phone: Start: 64-14-0112AxsIusgrfBnlyptchtqUniversity [facility]als [facility] Clinical Notes 02-15-2015 to 01-14-2025 Note Date & SoisRkkoRwvofdbz91-04-9841 History of Present illness Narrative* Shy Wolf MD - 01/14/2025 11:00 AM EDT HPI Patient is in the office for follow-up for 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 The patient had a follow-up echocardiogram December 2024 which revealed moderate aortic stenosis and a peak velocity of 327 cm/s. Ejection fraction was normalat 65 to 70%. The findings were compared [...] December 2024 with a velocity 327 cm/s. Remainsasymptomatic, this was shared with the patient follow- up testing in 1 year will be scheduled [...] Attestation By signing my name below, I, RichelleChema Fuentes LPNibalison attest that this documentation has been prepared under the direction and in the presence of Shy Wlof MD. Provider Attestation - Scribe documentation All medical record entries made by the Scribe were at my direction and personally dictated by me. Ihave reviewed the chart and agree that the record accurately reflects my personal performance of the history, physical exam, discussion and plan. documented in this encounterMag[facility]uder Hospital Work Phone: 1(458) 653-298808-08-2025 Instructions* Patient Instructions* Richelle Frey LPN - 01/14/2025 11:00 AM [...] -13.7 Lbs Provided instructions on dietary changes. * Attachments The following attachments cannot be sent through Care Everywhere. * Heart Healthy Diet (Congolese) documented in this encounterMag[facility]uder Hospital Work Phone: 1(406) 811-649107-01-2025 History of Present illness Narrative* Reuben Burns APRN-DWIGHT - 12/07/2024 3:00 PM EDT Subjective: Lavonne Villatoro is a 89 y.o. [...] does have aortic stenosis with peak 52, mean26 (February 2024 TTE). Since home blood pressure [...] to undergo local anesthetic now that her bloodpressure is under better control. Her annual echocardiogram [...] PMHNP-[facility] [place], [place] Please excuse any errors in grammar or translation related to this dictation. Voice recognition software was utilized to prepare this document. documented in this [facility] Work Phone: 1(482) 123-887507-01-2025 Instructions* Patient Instructions* JENNYFER Garsia - 12/07/2024 3:00 PM EDT [...] making process incorporating patients unique circumstances, the followingtreatment plan will be initiated: 1. Prescription drug management of cardiovascular medication for efficacy, adherence to treatment, side effect assessment and polypharmacy. Current treatment clinically warranted and to continue without modifications. 2. Return for follow-up; in the interim, contact the office if new symptoms arise. Dr. Wolf as scheduled documented in this encounterUnDiley Ridge Medical Center Work Phone: 1(337) 353-722207-01-2025 Miscellaneous Notes* Addendum Note - JENNYFER Garsia - 12/07/2024 3:00 PM EDTAddended by: REUBEN BURNS on: 12/08/2024 02:08 PM Modules accepted: Orders documented in this encounterUnDiley Ridge Medical Center Work Phone: 1(974) 839-484507-01-2025 Note* Addendum Note - ARGELIA Garsia CNP - 12/07/2024 3:00 PM EDTAddended by: REUBEN BURNS on: 12/08/2024 02:08 PM Modules accepted: Orders [facility] Work Phone: 1(988) 795-420611-08-2024 History of Present illness Narrative* Shy Wolf MD - 04/16/2024 1:30 PM EST Subjective Lavonne Villatoro is a 88 y.o. [...] by mouth. (Patient taking differently: Take 1 tablet(81 mg) by mouth 3 (three) times a week. 3 times a week), Disp: , Rfl: calcium carbonate 600 mg calcium (1,500 mg) tablet, Take 1 tablet (1,500 mg) by mouth once daily., Disp: , Rfl: carvedilol (Coreg) 6.25 mg tablet, Take 1 tablet (6.25 mg) by mouth 2 times daily (morning and lateafternoon)., Disp: , Rfl: levothyroxine (Synthroid, Levoxyl) 100 [...] Scribe Attestation By signing my name below, Sherin Sparks LPN, Scribe attest that this documentation has been prepared under the direction and in the presence of Shy Wolf MD. Provider Attestation - Scribe documentation All medical record entries made by the Scribe were at my direction and personally dictated by me. Ihave reviewed the chart and agree that the record accurately reflects my personal performance of the history, physical exam, discussion and plan. documented in this [facility] Work Phone: 1(516) 978-139011-08-2024 Instructions* Patient Instructions* Sherin Mendez LPN - 04/16/2024 1:30 PM [...] 9 month follow up documented in this [facility] Work Phone: 1(430) 839-407702-09-2024 Evaluation note* Encounter Date Diagnosis Assessment Notes Treatment Notes Treatment Clinical Notes Jul, PMR (polymyalgia rheumatica) (IC D-10 - M35.3) [employer] Other 02-06-2024 Evaluation note* Encounter Date Diagnosis Assessment Notes Treatment Notes Treatment Clinical Notes Jul, PMR (polymyalgia rheumatica) (IC D-10 - M35.3) [employer] Other 02-01-2024 Evaluation note* Encounter Date Diagnosis Assessment Notes Treatment Notes Treatment Clinical Notes Jul, Hypothyroidism (ICD-10 - E03.9) [employer] Other 01-29-2024 Evaluation note* Encounter Date Diagnosis Assessment Notes Treatment Notes Treatment Clinical Notes Jun, Hypothyroidism (ICD-10 - E03.9) Jun,Hyperthyroidism (ICD-10 - E05.90) [employer] Other 01-26-2024 Evaluation note* Encounter Date Diagnosis Assessment Notes Treatment Notes Treatment Clinical Notes Jun, PMR (polymyalgia rheumatica) (IC D-10 - M35.3) I feel that patient is experiencing PMR flare up/exacerbation. She has been on a low dose of prednisone for several weeks prior to this episode. Labs were obtained today. We discussed with patient and daughter in law treating the PMR disease itself with prednisone vs symptom control with pain medications in combination with eachother. Also discussed alf steriod use in regards to her condition. [...] requires sooner she is welcome to call. [employer] Other 01-11-2024 Evaluation note* Encounter Date Diagnosis Assessment Notes Treatment Notes Treatment Clinical Notes Jun, PMR (polymyalgia rheumatica) ( D-10 - M35.3) [employer] Other 01-11-2024 History of Present illness Narrative* [...] is being tapered gradually Shy Wolf MD, [facility] Review of Systems All other systems [...] Attestation By signing my name below, I, Mai Chu LPN , Scribe attest that this documentation has been prepared under the direction and in the presence of Shy Wolf MD. documented in this encounterMagruder Hospital Work Phone: 1(640) 678-416201-11-2024 Instructions* Patient Instructions* Yevgeniy Cortez MA - [...] time of your visit. documented in this encounterMagruder Hospital Work Phone: 1([phone]) 806-589212-22-2023 Evaluation note* Encounter Date Diagnosis Assessment Notes Treatment Notes Treatment Clinical Notes May, PMR (polymyalgia rheumatica) ( D-10 - M35.3) Upon discussion, I advised the patient to start taking the predniosne every other day of the 2.5mg.She is to avoid taking ibuprofen, suggested she take two extra strength tylenols in the morning, afternoon and the evening for pain control. We will continue to monitor. May,Essential (primary) hypertension (ICD-10 - I10) The patients blood pressure was WNL upon check in. Therefore, patient is to continue with the abovemedication regimen. May,ortic stenosis, moderate (ICD-10 - I35.0) Patient is very leary of getting this procedure. I advised the patient to discuss this with Dr. Wolf. May,Vaccine counseling (ICD-10 - Z71.85) I do recommend the patient get the RSV vaccine. [employer] Other 12-20-2023 Evaluation note* Encounter Date Diagnosis Assessment Notes Treatment Notes Treatment Clinical Notes May, Hypertension (ICD-10 - I10) May,Hypothyroidism (ICD-10 - E03.9) [employer] Other 11-10-2023 Evaluation note* Encounter Date Diagnosis Assessment Notes Treatment Notes Treatment Clinical Notes Apr, PMR (polymyalgia rheumatica) (IC D-10 - M35.3) [employer] Other 09-22-2023 Evaluation note* Encounter Date Diagnosis Assessment Notes Treatment Notes Treatment Clinical Notes Feb, PMR (polymyalgia rheumatica) (IC D-10 - M35.3) She was encouraged to take 2.5mg daily. Patient is agreeable. Feb,Hypertension (ICD-10 - I10) Blood pressure is satisfactory, she is to follow with cardiology as scheduled. [employer] Other 08-21-2023 Evaluation note* Encounter Date Diagnosis Assessment Notes Treatment Notes Treatment Clinical Notes Jan, Hypertension (ICD-10 - I10) [employer] Other 06-30-2023 Evaluation note* Encounter Date Diagnosis Assessment Notes Treatment Notes Treatment Clinical Notes Nov, PMR (polymyalgia rheumatica) (IC D-10 - M35.3) Patient is stable on the 5mg prednisone but I did suggest taking 2.5mg every other day alternating with the 5mg and see how she does. Nov,Hypertension (ICD-10 - I10) Blood pressure is borderline elevated today. She does continue with noticable lower extremity edemawhich I am very confident [facility] She will see Dr. Wolf in three weeks therefore was advised to make sure she discusses the swelling with him and see what he would like to do. Patient is agreeable. [employer] Other 04-14-2023 Evaluation note* Encounter Date Diagnosis Assessment Notes Treatment Notes Treatment Clinical Notes Sep, Hypertension (ICD-10 - I10) Pt is to continue with the above medications. I did provide her will a refill today. 14 Apr, 2023Insomnia (ICD-10 - G47.00) I encouraged pt to take the above medication about 3 hours before bed to give this medication time to take effect and avoid next day grogginess. Sep,MR (polymyalgia rheumatica) (ICD-10 - M35.3) Pt has been taking 1.5 tablets of the above medication daily for the last two months. I encouraged her to try to wean down to one tablet daily, and she is agreeable with this. In two months, we will discuss decreasing her dosage again, down to 0.5 tablets daily. We will continue to monitor. [facility] [facility] Other 03-08-2023 Evaluation note* Encounter Date Diagnosis Assessment Notes Treatment Notes Treatment Clinical Notes Aug, PMR (polymyalgia rheumatica) (IC D-10 - M35.3) [facility] [facility] Other 02-13-2023 Evaluation note* Encounter Date Diagnosis [...] copy of her blood work forwarded today. Jul,MR (polymyalgia rheumatica) (ICD-10 - M35.3) Upon review of sed rate findings I recommend the patient decrease Prednisone from 10 mg to 7.5 mg daily. The patient instructed several times to take one and half 10 mg tablet daily. I did write the instructions down for her. The patient does not require a refill at this time. We will continue to monitor. Jul,Insomnia (ICD-10 - G47.00) The patient is having [...] instructions provided. We will continue to monitor. Jul,Hypertension (ICD-10 - I10) Blood pressure findings are within normal range today in the office. The patient complains of bilateral lower extremity edema in the past few days, she does admit to being active painting and cleaning. I suggest she decrease Amlodipine, the patient states she has an upcoming appointment with academic affairs manager and she will discuss making medication changes at that time. [facility] Other 11-09-2022 Evaluation note* Encounter Date Diagnosis Assessment Notes Treatment Notes Treatment Clinical Notes Apr, PMR (polymyalgia rheumatica) (IC D-10 - M35.3) Review of pt's blood work [...] mg prednisone, then start 10 mg once aday. She voices understanding and agreement. We will continue to monitor. Apr,Hypertension (ICD-10 - I10) Pt has brought a list of her daily blood pressure readings, which we did review. I advised she can cut Apr,Hyperlipidemia (ICD-10 - E78.5) [facility] Other 11-02-2022 Evaluation note* Encounter Date Diagnosis Assessment Notes Treatment Notes Treatment Clinical Notes Apr, PMR (polymyalgia rheumatica) (IC D-10 - M35.3) [facility] Other 10-26-2022 Evaluation note* Encounter Date Diagnosis Assessment Notes Treatment Notes Treatment Clinical Notes Mar, Lumbar back pain (ICD-10 - M54.5 0) [employer] Other 09-20-2022 Evaluation note* Encounter Date Diagnosis Assessment Notes Treatment Notes Treatment Clinical Notes Feb, Elevated liver function tests (I CD-10 - R79.89) [facility] [facility] Other 09-16-2022 Evaluation note* Encounter Date Diagnosis Assessment Notes Treatment Notes Treatment Clinical Notes Feb, Acute pain of left shoulder (ICD -10 - M25.512) [facility] report reviewed from 02/20/22 . The [...] vaccinated. She may continue using Lidocaine patch Feb,ain of left scapula (ICD-10 - M89.8X1) Feb,Epigastric pain (ICD-10 - R10.13) The patient advised [place] could be causing her GI upset , encourged to use sparingly. Feb,Lumbar back pain (ICD-10 - M54.50) Feb,MR (polymyalgia rheumatica) (ICD-10 - M35.3) Blood work ordered to re-evalaute SED rate. I did provide a short burst of steroids today due to increased joint pain. Feb,steopenia of multiple sites (ICD-10 - M85.89) Dexa scan reviewed with the patient today noting osteopenia in several areas. We will discuss possibly starting once a month Bon[place] at her next office visit. [facility] [facility] Other 09-08-2022 Evaluation note* Encounter Date Diagnosis Assessment Notes Treatment Notes Treatment Clinical Notes Feb, Lumbar back pain (ICD-10 - M54.5 0) X-ray reviewed with the patient. Her pain is unchanged. I advised her it was okay to take the ibuprofen three times a day. Feb,Hypertension (ICD-10 - I10) Patient has a log of home blood pressures with findings that are WNL. She did have a reading of 105/50 last night stating she was dizzy and lightheaded. Encouraged her to monitor her blood pressure at home and if she continues with dizziness and gets more consistent low readings, she is to call theoffice. Feb,MR (polymyalgia rheumatica) (ICD-10 - M35.3) Currently patient is taking 2.5mg prednisone daily and doing well. I would like to continue to weanher down to eventually not take it anymore therefore suggested she take it every other day. She took one today therefore she will not take it tomorrow. Once this runs out, we will see how she does without it. Feb, 2Dizziness (ICD-10 - R42) I advised patient this could have been due to her lower blood pressure reading. Feb,History of COVID-19 (ICD-10 - Z86.16) Patient tested positive for covid 01/11/2022 and is doing well now. Feb,ost-menopausal (ICD-10 - Z78.0) DEXA scan was ordered. Feb,nterolisthesis of lumbar spine (ICD-10 - M43.16) 2mm anterolisthesis at L4-5 noted on Lumbar x-ray. She believes this could be from a fall back in july from a step ladder landing hard on her feet which I advised her it could be. DEXA ordered. Feb,steopenia (ICD-10 - M85.80) Noted on Lumbar x-ray. [facility] Other 08-05-2022 Evaluation note* Encounter Date Diagnosis Assessment Notes Treatment Notes Treatment Clinical Notes Jan, COVID-19 (ICD-10 - U07.1) [facility] [facility] Other 08-05-2022 Evaluation note* Encounter Date Diagnosis Assessment Notes Treatment Notes Treatment Clinical Notes Jan, Cough (ICD-10 - R05.9) In house covid test is positive. Treatment plan discussed in TE. [facility] Other 07-14-2022 Evaluation note* Encounter Date Diagnosis Assessment Notes Treatment Notes Treatment Clinical Notes Dec, PMR (polymyalgia rheumatica) (IC D-10 - M35.3) [facility] Other 05-27-2022 Evaluation note* Encounter Date Diagnosis Assessment Notes Treatment Notes Treatment Clinical Notes October, PMR (polymyalgia rheumatica) (IC D-10 - M35.3) [facility] [facility] Other 04-25-2022 Evaluation note* Encounter Date Diagnosis Assessment Notes Treatment Notes Treatment Clinical Notes Sep, PMR (polymyalgia rheumatica) (IC D-10 - M35.3) The patient encouraged to try and return to alternating 5mg with 7.5 mg tablet every third day as tolerated and may continue applying Voltarn Gel and apply heat as she states heating pad and hot shower help the joint pain. The patient voices understanding and we will continue to monitor. Sep,Insomnia (ICD-10 - G47.00) The patient tried OTC Melatonin 3mg for three weeks with no notable improvement . I suggest she increase the dose to 5mg for two weeks and may even increase to 10 mg if necessary . Discussion was hadif she fails the 10 mg Melatonin we can discuss Trazadone. The patient voices understanding. Sep,Heart murmur (ICD-10 - R01.1) The patient encourged to continue following with academic affairs manager annually in December as scheduled. I did forward a copy of most current blood work results . [facility] [facility] Other 04-04-2022 Evaluation note* Encounter Date Diagnosis Assessment Notes Treatment Notes Treatment Clinical Notes Sep, PMR (polymyalgia rheumatica) (IC D-10 - M35.3) Sep,Hypertension (ICD-10 - I10) [facility] Other 02-24-2022 Evaluation note* Encounter Date Diagnosis Assessment Notes Treatment Notes Treatment Clinical Notes Jul, PMR (polymyalgia rheumatica) (IC D-10 - M35.3) Weight is stable at this [...] patient several times. The patient voices understanding. Discussionwas had she could safely drink a glass of wine if she taking Tylenol sparingly. I did provide a handicap placard today that she could use if needed. We will continue to monitor. Jul,ifficulty sleeping (ICD-10 - G47.9) Discussion was had the patient could take OTC Melatonin 3mg one hour before sleep if needed. We will continue to montior. [facility] Other 02-16-2022 Evaluation note* Encounter Date Diagnosis Assessment Notes Treatment Notes Treatment Clinical Notes Jul, PMR (polymyalgia rheumatica) (IC D-10 - M35.3) [facility] [facility] Other 11-30-2021 Evaluation note* Encounter Date Diagnosis Assessment Notes Treatment Notes Treatment Clinical Notes Apr, PMR (polymyalgia rheumatica) (IC D-10 - M35.3) [facility] Other 11-18-2021 Evaluation note* Encounter Date Diagnosis Assessment Notes Treatment Notes Treatment Clinical Notes Apr, PMR (polymyalgia rheumatica) (IC D-10 - M35.3) Upon discussion with the patient, [...] voiced understanding. We will continue to monitor. Apr,Facial swelling (ICD-10 - R22.0) Patient reports eating [...] get a picture if she is able. Apr,Hyperlipidemia (ICD-10 - E78.5) Blood work ordered. Apr,Hypothyroidism (ICD-10 - E03.9) Blood work ordered. [facility] [facility] Other [id number] History general Narrative - Reported* Type Description Date Medical History [facility] Wwlombt1645, 02-15-15-mammogram-negativeMedical History 01/20123980-vbcvyjnnbei-vqlmdp, repeat in 3 yrsMedical Ujtrtgt21/2017- colonoscopy- normalMedical Historyf/u with cardiology NOHCMedical HistoryECHO 09/2016Surgical HistoryAppendectomySurgical HistoryGallbladder RemovalSurgical HistoryOvarian Cyst RemovalSurgical HistoryCoccyx repairSurgical HistoryCataracts Bilateral EyesSurgical Historythyroidectomy Dr. Forbes10/14/2019Hospitalization History Childbirth m3Rwuabjtngarhtgg HistorySee Above [employer] Other Evaluation noteNo InformationNortFedBid Other Evaluation note* Diagnosis Aortic valve stenosis, etiology of cardiac valve disease unspecified Essential hypertension Unspecified essential hypertension Hyperlipidemia, unspecified hyperlipidemia type Never smoked any substance documented in this encounter [facility] Work Phone: Evaluation note* Diagnosis Aortic valve stenosis, etiology of cardiac valve disease unspecified- Primary Essential hypertension Unspecified essential hypertension Hyperlipidemia, unspecified hyperlipidemia type Never smoked any substance BMI 26.0-26.9,adult Hypothyroidism, unspecified type documented in this encounter [facility] Work Phone: Evaluation note* Diagnosis Nonrheumatic aortic valve stenosis Aortic valve stenosis, etiology of cardiac valve disease unspecified documented in this encounter [facility] Work Phone: Evaluation note* Diagnosis 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- Primary BMI 26.0-26.9,adult documented in this encounter [facility] Work Phone: Evaluation note* Diagnosis Aortic valve stenosis, etiology of cardiac valve disease unspecified documented in this encounter [facility] Work Phone: Evaluation note* Diagnosis Nonrheumatic aortic valve stenosis- Primary 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 Hyperlipidemia, unspecified hyperlipidemia type PMR (polymyalgia rheumatica) (Multi) Polymyalgia rheumatica Hypothyroidism, unspecified type BMI 27.0-27.9,adult Never smoked any substance Overweight documented in this encounter [facility] Work Phone: Reason for visit Narrative* CV Imaging (Routine) - AuthorizedSpecialtyDiagnoses / ProceduresReferred By ContactReferred To ContactCardiology Diagnoses Aortic valve stenosis, etiology of cardiac valve disease unspecified Procedures Transthoracic Echo Complete ND ECHO TTHRC R-T 2D W/WOM-MODE COMPL SPEC&COLR D Shy Wolf MD [address] [facility] 2, [address] [address] Phone: tel: fax: Referral IDStatusReasonStart DateExpiration DateVisits RequestedVisits [id number] Perform Procedure [facility] Work Phone: Chief Complaint * LAVONNE [...] being tapered gradually * Shy Wolf MD, [facility] * LAVONNE VILLATORO is being seen [...] history of angina pec toris: Father(V17.49, Z82.49) Status:ActiveFH: CABG (coronary artery bypass surgery): Father(V17.3, Z82.49) Status:ActiveFamily history of stent: Sister(V19.8, Z84.89) Status:Active Unknown Family Member Name Dates Details Family history of angina pec toris: Father(V17.49, Z82.49) Status:ActiveFH: CABG (coronary artery bypass surgery): Father(V17.3, Z82.49) Status:ActiveFamily history of stent: Sister(V19.8, Z84.89) Status:Active Unknown Family Member Name Dates Details Family history of angina pec toris: Father(V17.49, Z82.49) Status:ActiveFH: CABG (coronary artery bypass surgery): Father(V17.3, Z82.49) Status:ActiveFamily history of stent: Sister(V19.8, Z84.89) Status:Active Unknown Family Member Name Dates Details Family history of angina pec toris: Father(V17.49, Z82.49) Status:ActiveFH: CABG (coronary artery bypass surgery): Father(V17.3, Z82.49) Status:ActiveFamily history of stent: Sister(V19.8, Z84.89) Status:Active Unknown Family Member Name Dates Details Family history of angina pec toris: Father(V17.49, Z82.49) Status:ActiveFH: CABG (coronary artery bypass surgery): Father(V17.3, Z82.49) Status:ActiveFamily history of stent: Sister(V19.8, Z84.89) Status:Active Unknown Family Member Name Dates Details Family history of angina pec toris: Father(V17.49, Z82.49) Status:ActiveFH: CABG (coronary artery bypass surgery): Father(V17.3, Z82.49) Status:ActiveFamily history of stent: Sister(V19.8, Z84.89) Status:Active Summary Purpose Advance Directives No Advanced Directives Records FoundNo Advanced Directives Records FoundNo Advanced Directives Records FoundNo Advanced Directives Records FoundNo Advanced Directives Records FoundNo Advanced Directives Records FoundNo Advanced Directives Records FoundNo Advanced Directives Records Found Reason for Referral Reason consult and tr eat with Dr.Emily Valverde at Diagnosis 1 PMR (polymyalgia rhe umatica) (M35.3) Referral Organization [facility] [place] Referring Provider First Name Suhas Referring Provider Last Name Ugo Referring Provider Specialty Family Prac sukhjinder Referred Organization [facility] Referred Address [address] [place], [place],[address] Referred Provider Specialty Rheumatology Referral Priority Routine General Notes Zaida Tinsley 10:11:01 AM >received today, completed CC referral form and faxed to their referring physicians department. Patient will be contacted by the CC to schedule her appointment. SpecialtyDiagnoses / ProceduresReferred By ContactReferred To ContactCardiology Diagnoses Aortic valve stenosis, etiology of cardiac valve disease unspecified Procedures Transthoracic Echo (TTE) Complete ND ECHO TTHRC R-T 2D W/WOM-MODE COMPL SPEC&COLR D Shy Wolf MD [address] [place] [address] 2, [address] [place] [address] Referral IDStatusReasonStabilene DateExpiration DateVisits RequestedVisits [id number] Review Perform Procedure [id number] / ProceduresReferred By ContactReferred To ContactCardiology Diagnoses Aortic valve stenosis, etiology of cardiac valve disease unspecified Procedures Follow Up In Cardiology Shy Wolf MD [address] [place] [address] 2, [address] [address] Shy Wolf MD [address] [facility] [address], [address] [address] Ref[facility]Status[facility] DateExpiration DateVisits RequestedVisits [id number]/11/20241/10/202511 Additional Source Comments REASON FOR VISIT (unrecogniz ed section and content) ReasonCommentsFollow-up9 month, echocardiogram resultsSpecialtyDiagnoses / ProceduresReferred By ContactReferred To ContactCardiology Diagnoses Aortic valve stenosis, etiology of cardiac valve disease unspecified Procedures Follow Up In Cardiology Shy Wolf MD [address] [place] [address], [address] [address] Phone: tel: fax: Shy Wolf MD [address] [place] [address], [place] [phone] Phone: tel: fax: Referral IDStatusReasonStart DateExpiration DateVisits RequestedVisits [id number]/8/202411/8/[id number]-rp5wTlrtpt CommentsFollow-fl1cMvwedvgc IDStatusReasonStart DateExpiration DateVisits RequestedVisits [id number]/11/20241/[id number] Diagnoses / ProceduresReferred By ContactReferred To ContactCardiology Diagnoses Nonrheumatic aortic valve stenosis Procedures Transthoracic Echo (TTE) Complete ND ECHO TRANSTHORC R-T 2D W/WO M-MODE REC F-UP/LMTD ND DOP ECHOCARD COLOR FLOW VELOCITY MAPPING ND DOP ECHOCARD PULSE WAVE W/SPECTRAL F-UP/LMTD STD Shy Wolf MD [address] [place] [id number] Referral IDStatusReasonStart DateExpiration DateVisits RequestedVisits [id number] Perform Procedure /[id number]-pw ClearancePOC for spinal cord stimulator, scheduled 12.13.[address] Weston. INFORMATION SOURCE (unrecogn ized section and content) DATE CREATED AUTHOR 03/06/2022 [facility] DATE CREATED AUTHOR AUTHOR'S ORGANIZ ATION 12/25/2022 [facility] DATE CREATED AUTHOR AUTHOR'S ORGANIZ ATION 12/25/2022 [facility] DATE CREATED AUTHOR AUTHOR'S ORGANIZ ATION 03/03/2023 [facility] DATE CREATED AUTHOR AUTHOR'S ORGANIZ ATION 07/29/2024 [facility] DATE CREATED AUTHOR AUTHOR'S ORGANIZ ATION 12/25/2024 [facility] DATE CREATED AUTHOR AUTHOR'S ORGANIZ ATION 01/16/2025 [facility] DATE CREATED AUTHOR AUTHOR'S ORGANIZ ATION 02/23/2025 [facility] Care Teams (unrecognized sec tion and content) Team MemberRelationshipSpecialtyStart DateEnd Date Suhas Garrett DO PCP - General06/09/99Team MemberRelationshipSpecialtyStart DateEnd Date Suhas Garrett DO [address] [place] [address] PCP - [facility] Medicine01/30/24Team MemberRelationshipSpecialtyStart DateEnd Date Suhas Garrett DO [address] [place] [address] [facility]01/30/24Team MemberRelationshipSpecialtyStart DateEnd Date Suhas Garrett DO [address] [place] [address] PCP - GeneralFamily Medicine01/30/24Team MemberRelationshipSpecialtyStart DateEnd Date Suhas Garrett DO [address] [place] [address] PCP - GeneralFamily Medicine01/30/24Team MemberRelationshipSpecialtyStart DateEnd Date Suhas Garrett DO [address] [place] [address] PCP - GeneralFamily Medicine01/30/24 FOR RECORDS PERTAINING TO PATIENTS WHO ARE [...] ON THE PRIMARY CLINICAL RECORDS. [facility]. provides no warranty or guarantee of the accuracy or completeness of information in this document.
--- OUTSIDE RECORDS SUMMARY | 2025-03-30 21:57 | XMS_ITS | Clinical Summary ---
Author Organization [facility] Address [address] [place] [address] Phone Care Team Providers Care Head Of Partner Development Name Role Phone Suhas Arizmendi DO Primary Care Provider [phone] Allergies Active AllergyReactionsCriticalityNoted EuihRoyofhbdRaikvnmouatRrwzu45/27/2023 Eye pain HhhbrlufxmhCrebiXpgl77/27/1800UsbnlevaruLxxex93/01/2025 Hair loss HydrocodoneGI WqofkMpkwre78/11/0803BdwdivfokQjosLoy17/27/2023Valproic Acid Ftcszhk2406/04/2023 Medications MedicationSigDispense QuantityRefillsLast FilledStart DateEnd DateStatus multivit-min/ferrous fumarate (MULTI VITAMIN ORAL) Take 1 tablet by mouth once daily.Active losartan-hydrochlorothiazide (Hyzaar) 100-12.5 mg tablet Take 1 tablet by mouth once daily.09/10/2021ctive carvedilol (Coreg) 6.25 mg tablet Take 1 tablet (6.25 mg) by mouth 2 times daily (morning and late afternoon). 06/25/2021ctive aspirin 81 mg EC tablet Take 1 tablet (81 mg) by mouth 3 (three) times a week.Active levothyroxine (Synthroid, Levoxyl) 100 mcg tablet Take 1 tablet (100 mcg) by mouth once daily.06/25/2021ctive amLODIPine (Norvasc) 5 mg tablet Take 1 tablet (5 mg) by mouth once daily.Active gabapentin (Neurontin) 100 mg capsule Take 1 capsule (100 mg) by mouth 3 times a day.Active LORazepam (Ativan) 0.5 mg tablet Take 1 tablet (0.5 mg) by mouth every 6 hours if needed for anxiety.Active acetaminophen (Tylenol 8 HOUR) 650 mg ER tablet Take 1 tablet (650 mg) by mouth every 8 hours if needed for mild pain (1 - 3). Do not crush, chew, or split.Active predniSONE (Deltasone) 10 mg tablet Take 1 tablet (10 mg) by mouth once daily.5Active Active Problems ProblemNoted DateDiagnosed DateBMI 27.0-27.9,adult04/16/2024Never smoked any vljvcyttz76/11/2024ortic /27/2023arotid bruit06/04/2023White coat syndrome with diagnosis of cboywlgtkmfm55/27/7118Jogqebrsndecom24/27/2023 Vqbdiivjqzoxvb67/27/2023Murmur, ehjatvi9606/04/2023MR (polymyalgia rheumatica) 06/04/2023 Encounters DateTypeDepartmentCare IurmCardptmveub47/08/2025 11:[address] [place] [address] Michel Wolf MD Nonrheumatic aortic valve stenosis (Primary Dx); 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; Hyperlipidemia, unspecified hyperlipidemia type; PMR (polymyalgia rheumatica) ([facility]); Hypothyroidism, unspecified type; BMI 27.0-27.9,adult; Never smoked any substance; Leztnfczbo81/08/2025Travelfrom Last 3 Months Immunizations ImmunizationAdministration DatesNext DueFlu vaccine, trivalent, preservative free, HIGH-DOSE, age 65y+ (Fluzone)03/09/2019Flu vaccine, trivalent, preservative free, age 6 months and greater (Fluarix/Fluzone/Flulaval)04/05/2014 Influenza Whole03/09/2014Influenza, Seasonal, Quadrivalent, Disccdeokd22/25/2023 ,03/21/2022Influenza, Fswizqyscdg01/01/2018,04/09/2017,03/09/2016,03/09/2015, 03/09/2013,06/09/2011,06/09/2010,06/09/2009Influenza, injectable, quadrivalent 04/07/2015,04/14/2012Influenza, seasonal, uonlopmths16/01/2020,03/04/2019 Influenza, trivalent, jmigsduaey93/30/2024,03/06/2020,03/16/2018,03/28/2017, 04/01/2016Moderna COVID-19 vaccine, 12 years and older (50mcg/0.5mL)(Spikevax) 04/07/2024,04/02/2023Moderna COVID-19 vaccine, bivalent, blue cap/uribe label *Check age/dose*04/17/2022Novel lyfttkwag-H0Q1-33, preservative-free05/30/2009 Pneumococcal conjugate vaccine, 13-valent (PREVNAR 13)05/24/2016,05/23/2016, 03/09/2016Pneumococcal conjugate vaccine, 20-valent (PREVNAR 20)04/23/2024 Pneumococcal polysaccharide vaccine, 23-valent, age 2 years and older (PNEUMOVAX 23)04/28/2020,06/09/2006RESPIRATORY SYNCYTIAL VIRUS (RSV), ELIGIBLE PTS, 0.5 ML (ABRYSVO)06/07/2023Zoster vaccine, recombinant, adult (SHINGRIX) 05/04/2019,02/04/2019 Family History Medical HistoryRelationNameCommentsCABGFatherangina pectorisFatherAortic stenosisSisterRelationNameStatusCommentsFatherSister Social History Tobacco UseTypesPacks/DayYears UsedDateSmoking Tobacco: NeverSmokeless Tobacco: NeverAlcohol UseStandard Drinks/WeekCommentsYes1 (1 standard drink = 0.6 oz pure alcohol)CommentsUnknownSex and Gender InformationValueDate RecordedSex Assigned at BirthNot on fileLegal WlkCosvcy84/25/2022 8:57 AM ESTGender Identity Not on fileSexual OrientationNot on file Last Filed Vital Signs Vital SignReadingTime TakenCommentsBlood Vlqjjdgo809/7808 11:07 AM EDT Cyifx0485/08/2025 11:07 AM EDTTemperature--Respiratory Rate--Oxygen Saturation-- Inhaled Oxygen Concentration--Tramnr23 kg (150 lb)01/14/2025 11:07 AM EDTHeight 157.5 cm (5' 2 )01/14/2025 11:07 AM EDTBody Mass Index27.44001/14/2025 11:07 AM EDT Plan of Treatment DateTypeDepartmentCare Team (Latest Contact Info)Rthlhtsfkqc64/14/2026 10:45 AM EDTAppointment [facility] [address] [place] [phone] 01/26/2026 11:00 AM EDTOffice [facility] [address] [facility] [address] [place] [phone] Michel Wolf MD [address] [facility] [address], [address] [place] [address] Health MaintenanceDue DateLast DoneCommentsLipid Panel1936TSH Level 1936Hepatitis A Vaccines (1 of 2 - Risk 2-dose series)08/11/1955Hepatitis B Vaccines (1 of 3 - Risk 3-dose series)1996Bone Density Scan02/19/2024 02/18/2022Influenza Vaccine (#1)51, 04/02/2023, 03/21/2022, Additional history existsCOVID-19 Vaccine ( season)2025 04/07/2024, 04/02/2023, 04/17/2022, Additional history existsMedicare Annual Wellness Visit (AWV)602/, 04/28/2020DTaP/Tdap/Td Vaccines (2 - Td or Tdap)Zoster AqvlkarrApgcozwsl86/26/2019, 02/04/2019, 10/19/2007RSV High Risk: (Elderly (60+) or Population)Completed 3Pneumococcal UkvqyteKbrygnijj43/15/2024, 04/28/2020, 05/24/2016, Additional history existsHIB VaccinesAged OutNo longer eligible based on patient's age to complete this topicHPV VaccinesAged OutNo longer eligible based on patient's age to complete this topicIPV VaccinesAged OutNo longer eligible based on patient's age to complete this topicMeningococcal VaccineAged OutNo longer eligible based on patient's age to complete this topicRotavirus Vaccines Aged OutNo longer eligible based on patient's age to complete this topic Insurance Care Teams Team MemberRelationshipSpecialtyStart DateEnd Date Suhas Arizmendi DO [address] [place] [address] [facility]01/30/24
--- OUTSIDE RECORDS SUMMARY | 2025-03-30 21:57 | XMS_ITS | Clinical Summary ---
Author Organization [facility] Address [address] [place] [address] Care Team Providers Care Termination Clerk Name Role Phone Suhas Arizmendi DO Unavailable Suhas Arizmendi DO Primary Care Provider [phone] Allergies Active AllergyReactionsCriticalityNoted DateCommentsDivalproex SodiumIntolerance 03/29/2005Phenytoin Sodium ZdsmnfobPmms52/21/2005 Medications MedicationSigDispense QuantityRefillsLast FilledStart DateEnd DateStatus NORVASC 5 MG TAB Take one(1) tablet daily.Active DIOVAN HCT 160 MG-12.5 MG TAB twice a ztg785Active METOPROLOL SR 50 MG 24 HR TAB once a zhr460Active SYNTHROID 100 MCG TAB Take one(1) tablet daily.Active CALCIUM ANTACID 500 MG CHEWABLE TAB Calcium with D 600mg once a ygt571Active VIT B-L5-K40M09-ZLPYL ACID-MAG OX 100 UNIT-2.05 MG TAB Vit e 400 IU every other xgr761Active ASPIRIN 81 MG TAB once a xdh082Active Family History Medical HistoryRelationCommentsNoneMotherno family history of breast cancer RelationStatusCommentsMother Social History Tobacco UseTypesPacks/DayYears UsedDateSmoking Tobacco: Never Assessed CommentsUnknownSex and Gender InformationValueDate RecordedSex Assigned at Not on fileLegal SlpXotaiw33/02/2012 7:32 AM ESTGender IdentityNot on fileSexual OrientationNot on file Plan of Treatment Health MaintenanceDue DateLast DoneCommentsAnxiety Qeqwuuphv02/04/1955Depression Vkjjtfmvz64/04/1955DTaP,Tdap,Td Vaccine (1 - Tdap)08/11/1955Diabetes Screening 1981Pneumococcal Vaccine: 50+ (1 of 1 - PCV)1986Shingrix Vaccine (1 of 2)1986Bone Density Nyhtrhnzw18/04/2002RSV Vaccine (1 - 1-dose 75+ series)08/11/2011dvance Directive Duivrkmmwx37/01/2025ovid-19 Vaccine (1 - 2024-26 season)2025Influenza Vaccine (#1)2025 Insurance Care Teams Team MemberRelationshipSpecialtyStart DateEnd Date Suhas Arizmendi DO [address] [place] [address] PCP - Generalmily Medicine07/23/23 Suhas Arizmendi DO [address] [place] [address] ReferringFaboston nursery for blind babies Medicine07/23/23
--- OUTSIDE RECORDS SUMMARY | 2025-03-30 21:57 | XMS_ITS | Clinical Summary ---
Author Organization [facility] Address [address] [facility] [place] [address] Care Team Providers Care Porcelain Slusher Name Role Phone Unavailable Primary Care Provider Unavailabl e Social History Tobacco UseTypesPacks/DayYears UsedDateSmoking Tobacco: Never Assessed CommentsUnknownSex and Gender InformationValueDate RecordedSex Assigned at Not on fileLegal LfvTiuhdh00/15/2023 7:21 PM EDTGender IdentityNot on fileSexual OrientationNot on file Last Filed Vital Signs Vital SignReadingTime TakenCommentsBlood Pressure--Pulse--Temperature-- Respiratory Rate--Oxygen Saturation--Inhaled Oxygen Concentration--Elevix48.5 kg (140 lb)04/21/2020 12:00 PM KCWCdtyxk026.5 cm (5' 2 )04/21/2020 12:00 PM ESTBody Mass Index25.6104/21/2020 12:00 PM EST Plan of Treatment [place] [id number]
--- NOTE | 2025-03-30 22:06 | ED.BACK1 ---
HPI HPI - Back Pain/Injury General Chief Complaint: Back Pain/Injury Stated Complaint: LOWER BACK PAIN Time Seen by Provider: 03/30/25 21:50 Source: patient Mode of arrival: walk-in Limitations: no limitations History of Present Illness HPI Narrative: This 89-year-old female presents for reevaluation of midthoracic back pain. The back pain is bilateral in nature. She states it started after she had her COVID-19 and influenza vaccines recently. She was seen here on Friday, 2 days ago, she was given an injection of Toradol at that time that she states helped her until today. She was discharged home with a prescription for Robaxin which she states is not helping her at all. She states she has been diagnosed with polymyalgia rheumatica. She is not having any fever. She does not have any skin rash in this area. Pain is made worse with movement. She denies any generalized abdominal pain. She has not had any dizziness or syncope. She has no lower extremity pain or swelling. She states that she stays active. She does take a daily baby aspirin. She has not had any fever or cough. She denies any urinary symptoms. The pain is just around her bra line and bilateral. Related Data Home Medications ?Medication ?Instructions ?Recorded ?Confirmed aspirin 81 mg capsule 81 mg PO DAILY 08/25/23 03/24/25 carvedilol 6.25 mg tablet 6.25 mg PO Q12H 08/25/23 03/24/25 levothyroxine 100 mcg tablet 100 mcg PO DAILY 08/25/23 03/24/25 lorazepam 0.5 mg tablet 0.5 mg PO Q8H PRN anxiety 10/25/24 03/24/25 acetaminophen 650 mg 1,300 mg PO Q12H PRN pain 11/29/24 03/24/25 tablet,extended release amlodipine 5 mg tablet 5 mg PO DAILY 11/29/24 03/24/25 losartan 100 1 tab PO DAILY 11/29/24 03/24/25 mg-hydrochlorothiazide 25 mg tablet multivitamin (Daily Multi-Vitamin 1 tab PO DAILY 11/29/24 03/24/25 tablet) prednisone 10 mg tablet 7.5 mg PO DAILY 11/29/24 03/24/25 gabapentin 300 mg capsule 300 mg PO Q8H 02/08/25 03/24/25 Previous Rx's ?Medication ?Instructions ?Recorded methocarbamol 500 mg tablet 500 mg PO Q8H PRN pain #20 tabs 03/29/25 clindamycin HCl 300 mg capsule 300 mg PO BID #14 caps 03/30/25 Allergies Allergy/AdvReac Type Severity Reaction Status Date / Time amoxicillin Allergy Mild Rash Verified 03/30/25 22:04 divalproex sodium (From Allergy Unknown hair loss Verified 03/30/25 22:04 Depakote) hydrocodone Allergy Unknown Rash Verified 03/30/25 22:04 phenytoin (From Dilantin) Allergy Unknown Rash Verified 03/30/25 22:04 alendronate sodium (From AdvReac eye pain Verified 03/30/25 22:04 Fosamax) Opioid HPI Opioid Management Most Recent Opioid Data: Last Pain Scale 9 03/30/25, 23:31 Last MAR Pain Assessment 03/30/25, 23:31 Review of Systems ROS Status of ROS 10 or more systems reviewed and unremarkable except as noted in history and below [facility] Medical History 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 ?I10 - Essential (primary) hypertension (ICD-10) Lumbar stenosis with neurogenic claudication ?M48.062 - Spinal stenosis, lumbar region with neurogenic claudication (ICD-10) Back pain ?M54.9 - Dorsalgia, unspecified (ICD-10) Shoulder pain ?M25.519 - Pain in unspecified shoulder (ICD-10) Seizures (1987) ?R56.9 - Unspecified convulsions (ICD-10) Heartburn ?R12 - Heartburn (ICD-10) Cataract ?H26.9 - Unspecified cataract (ICD-10) Hepatic lesion ?K76.9 - Liver disease, unspecified (ICD-10) Insomnia ?G47.00 - Insomnia, unspecified (ICD-10) Lung density on x-ray ?J98.4 - Other disorders of lung (ICD-10) Multinodular thyroid ?E04.2 - Nontoxic multinodular goiter (ICD-10) Hypothyroidism (acquired) ?E03.9 - Hypothyroidism, unspecified (ICD-10) Hyperlipidemia ?E78.5 - Hyperlipidemia, unspecified (ICD-10) Aortic stenosis ?I35.0 - Nonrheumatic aortic (valve) stenosis (ICD-10) Polymyalgia rheumatica ?M35.3 - Polymyalgia rheumatica (ICD-10) Hyperthyroidism ?E05.90 - Thyrotoxicosis, unspecified without thyrotoxic crisis or storm (ICD-10) Heart murmur ?R01.1 - Cardiac murmur, unspecified (ICD-10) HTN (hypertension) ?I10 - Essential (primary) hypertension (ICD-10) Surgical History S/P epidural steroid injection ?Z92.241 - Personal history of systemic steroid therapy (ICD-10) History of cataract extraction with lens replacement H/O excision of mass ?Z98.890 - Other specified postprocedural states (ICD-10) H/O colonoscopy ?Z98.890 - Other specified postprocedural states (ICD-10) 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 - Postprocedural hypothyroidism (ICD-10) Hx of cholecystectomy ?Z90.49 - Acquired absence of other specified parts of digestive tract (ICD-10) History of ovarian cystectomy ?Z98.890 - Other specified postprocedural states (ICD-10) ?Z87.42 - Personal history of other diseases of the female genital tract (ICD-10) History of appendectomy ?Z90.49 - Acquired absence of other specified parts of digestive tract (ICD-10) Family History Other Family history of DVT Family history of aneurysm Family history of cancer Family history of diabetes mellitus Family history of heart disease Social History Within the past year, how often did you have a drink containing alcohol: monthly or less Smoking status: Never smoker Non-prescribed substance use: denies use Highest level of school completed/degree received: high school graduate Little interest or pleasure in doing things: not at all Feeling down, depressed, or hopeless: not at all Exam Narrative Exam Narrative: Vital signs and Nursing Notes reviewed: Patient is afebrile with a normal pulse, blood pressure is elevated at 198/78, she is not hypoxic with pulse ox of 98% on room air General: Awake, alert, oriented, well-appearing elderly female looking younger than her stated age of 89, patient is comfortable on the stretcher until she tries to sit up or roll to the side when she complains of pain in the mid to upper back region HEENT: Normocephalic atraumatic, mucous membranes are moist and pink, eyes are clear, normal conjunctiva, vision is grossly intact, posterior pharynx is normal in appearance. Neck: Supple, no midline bony vertebral tenderness or step-off Chest: Lungs are clear to auscultation with good air entry, there is no wheezing rhonchi or rales appreciated no accessory muscle use, patient is speaking in complete sentences-no chest wall tenderness to palpation CVS: Regular rate and rhythm S1-S2, no murmurs rubs or gallops, pulses are brisk and equal bilaterally, radial, brachial, femoral and dorsalis pedis pulses are brisk and equal bilaterally ABD: Soft, nondistended, nontender, no rebound guarding or rigidity, bowel sounds are normal, no pulsatile masses appreciated Musc: No reproducible tenderness to the mid thoracic region where the patient is complaining of pain, there is no skin rash or appreciable muscle spasm in this area Extremities: Moving all extremities, no lower extremity tenderness or swelling noted, negative Homans' sign, pulses are brisk and equal bilaterally Skin: Normal in appearance without rash,pallor, petechiae or purpura Neuro: No focal deficits Constitutional Vital Signs, click to edit/add: Last Vital Signs Temp 98.0 F 03/30/25 21:57 Pulse 58 L 03/30/25 23:40 Resp 18 03/30/25 23:40 BP 165/70 H 03/30/25 23:40 Pulse Ox 97 03/30/25 23:40 O2 Del Method Room Air 03/30/25 21:57 Course Vital Signs Vital signs: Vital Signs Temperature 98.0 F 03/30/25 21:57 Pulse Rate 61 03/30/25 21:57 Respiratory Rate 18 03/30/25 21:57 Blood Pressure 198/78 H 03/30/25 21:57 Pulse Oximetry 98 03/30/25 21:57 Oxygen Delivery Method Room Air 03/30/25 21:57 Temperature 98.0 F 03/30/25 21:57 Pulse Rate 58 L 03/30/25 23:40 Respiratory Rate 18 03/30/25 23:40 Blood Pressure 165/70 H 03/30/25 23:40 Pulse Oximetry 97 03/30/25 23:40 Oxygen Delivery Method Room Air 03/30/25 21:57 MDM - Back Pain/Injury MDM Narrative Medical decision making narrative: This 89-year-old female who has a history of polymyalgia rheumatica and osteoarthritis presents for evaluation of midthoracic back pain. She was seen here 2 days ago for the same pain and given injection of Toradol and prescription for Robaxin. She states she initially had relief of her pain but it recurred. She dates the symptoms started after she had a COVID-19 and influenza injection. She does not have any skin rash in this area. She is not tender to palpation. Her blood pressure was noted to be elevated upon arrival. She states her blood pressure is always elevated when she sees a doctor. My concern was that there is something else causing her back pain especially in light of its recurrence and severity in which she felt compelled to come to the emergency department twice. She initially refused any radiographic imaging because she had an x-ray done earlier this week. I explained to her that there could be other causes of her pain including an aneurysm especially at her age and with her history of high blood pressure. She was then agreeable to a workup. An IV was placed and EKG was ordered. Her EKG has a sinus rhythm at 59 bpm with a prolonged QT interval. Routine labs are reviewed. She has normal white count and stable hemoglobin. Comprehensive metabolic profile is normal. Troponin is normal. CT angio of the chest abdomen pelvis was ordered to rule out aneurysm/dissection. She was medicated with Solu-Medrol due to her history of polymyalgia rheumatica and 15 mg of IV Toradol. On reevaluation she states she is feeling somewhat better. Her vital signs remained stable with an improvement in her blood pressure to 170/60. CT scan of the chest abdomen pelvis shows multilevel degenerative disease with a normal aorta and a pulmonary nodule but otherwise normal report.. The results of the CT scan were discussed with the patient in detail and she was given a copy of the report. She will be discharged home with a Rx for prednisone and and Zofran to take when she gets home tonight and a prescription for tramadol will be given to her at the time of discharge. She states she will follow-up closely with her family physician and she is scheduled to have a nerve stimulator placed for her lower extremity problems in the near future. Lab Data Attestation: I reviewed the patient's lab results. Labs: Lab Results 03/30/25 03/30/25 Range/Units 22:35 22:58 WBC 8.0 (4.0-11.0) 10^3/uL RBC 3.75 L (4.20-5.40) 10^6/uL Hgb 12.7 (12.0-16.0) g/dL Hct 38.0 (36.0-48.0) % MCV 101.3 H (81.0-99.0) fL MCH 33.9 (26.7-34.0) pg MCHC 33.4 (29.9-35.2) g/dL RDW 13.2 (11.0-15.0) % Plt Count 221 (150-450) 10^3/uL MPV 10.5 (9.5-13.5) fL Neut % (Auto) 53.0 (43.0-75.0) % Lymph % (Auto) 33.3 (20.5-60.0) % [place] % (Auto) 11.2 (1.7-12.0) % Eos % (Auto) 0.9 (0.9-7.0) % Baso % (Auto) 0.6 (0.2-2.0) % Neut # (Auto) 4.2 (1.4-6.5) 10^3/uL Lymph # (Auto) 2.7 (1.2-3.8) 10^3/uL [place] # (Auto) 0.9 H (0.3-0.8) 10^3/uL Eos # (Auto) 0.1 (0.0-0.7) 10^3/uL Baso # (Auto) 0.1 (0.0-0.1) 10^3/uL Abs Immat Gran (auto) 0.08 H (0.00-0.03) 10^3/uL Imm/Tot Granulo (auto) 1.0 H (0.0-0.5) % Sodium 141 (136-145) mmol/L Potassium 3.9 (3.5-5.1) mmol/L Chloride 106 (98-107) mmol/L Carbon Dioxide 26.6 (21.0-32.0) mmol/L Anion Gap 12.3 BUN 22.0 H (7.0-18.0) mg/dL Creatinine 0.76 (0.55-1.02) mg/dL Est GFR ( Amer) >60 (>=60 mL/min/1.73m^2) Est GFR (Non-Af Amer) >60 (>=60 mL/min/1.73m^2) BUN/Creatinine Ratio 28.9 Glucose 98 (74-106) mg/dL Calcium 8.9 (8.5-10.1) mg/dL Total Bilirubin 0.4 (0.2-1.0) mg/dL AST 29 (15-37) U/L ALT 47 (14-59) U/L Alkaline Phosphatase 110 (46-116) U/L Troponin I High Sens 7.9 (4.0-51.3) pg/mL Total Protein 6.5 (6.4-8.2) g/dL Albumin 3.4 (3.4-5.0) g/dL Globulin 3.1 g/dL Albumin/Globulin Ratio 1.[address] scan - chest: Radiologist's impression: ITS Impressions Abdomen/Pelvis CT 03/30/25 22:22 IMPRESSION: Negative acute inflammatory process or bowel obstruction. Colonic diverticulosis. Impression dictated by: Simba Cardona M.D. 03/30/2025 11:51 PM Dictation Location: [employer] Electronically authenticated by: [id number] Y Date: 03/30/2025 23:51 Chest CTA 03/30/25 22:22 IMPRESSION: Negative for aortic aneurysm or dissection. Right lower lobe nodule 1.5 x 1.6 cm size. Consider 3 month follow-up. This could be infectious inflammatory etiology. In the absence of infectious symptoms, neoplasm could be considered in appropriate clinical setting. Impression dictated by: Simba Cardona M.D. 03/30/2025 11:47 PM Dictation Location: [employer] Electronically authenticated by: [id number] Y Date: 03/30/2025 23:47 ECG Data Attestation: I personally reviewed and interpreted this ECG as follows: (Sinus rhythm at 59 bpm, long QT interval at 472 ms, normal axis, no acute ST segment elevation or T wave inversion) Discharge Plan Discharge Chief Complaint: Back Pain/Injury Clinical Impression: Pulmonary nodule, Back pain, thoracic Prescriptions / Home Meds: No Action carvedilol 6.25 mg tablet 6.25 mg PO Q12H levothyroxine 100 mcg tablet 100 mcg PO DAILY aspirin 81 mg capsule 81 mg PO DAILY lorazepam 0.5 mg tablet 0.5 mg PO Q8H PRN (Reason: anxiety) amlodipine 5 mg tablet 5 mg PO DAILY losartan-hydrochlorothiazide 100-25 mg tablet 1 tab PO DAILY multivitamin [Daily Multi-Vitamin] Tablet 1 tab PO DAILY prednisone 10 mg tablet 7.5 mg PO DAILY acetaminophen 650 mg tablet extended release 1,300 mg PO Q12H PRN (Reason: pain) gabapentin 300 mg capsule 300 mg PO Q8H clindamycin HCl 300 mg capsule 300 mg PO BID Qty: 14 0RF methocarbamol 500 mg tablet 500 mg PO Q8H PRN (Reason: pain) Qty: 20 0RF Print Language: Cuban Referrals: Suhas Arizmendi DO [Primary Care Provider] - 1 week
--- NOTE | 2025-03-30 22:22 | CT_ITS ---
The [address] [address] Patient Name: LAVONNE VILLATORO MRN: [id number] date: 1935 Sex: F Assigned Patient Location: ER Current Patient Location: ER Accession/Order Number: [id number] Exam Date: 03/30/2025 23:08 Report Date: 03/30/2025 23:51 At the request of: STEVENSON CARMICHAEL MD Procedure: CT abdomen pelvis w con CT ABDOMEN AND PELVIS WITH INTRAVENOUS CONTRAST: CLINICAL HISTORY: Aneurysm study COMPARISON: None TECHNIQUE: Spiral images were obtained through the abdomen and pelvis following the administration of intravenous contrast. This CT exam was performed using one or more following dose reduction techniques: Automated exposure control, adjustment of the mA and/or kV according to patient size, or use of iterative reconstruction technique. FINDINGS: Lung Bases: [No focal opacity] Organs:Gallbladder absent. Liver, spleen, adrenals, kidneys, and pancreas are unremarkable.[ GI: Mild to moderate retained stool. No bowel obstruction. Colonic diverticulosis. No pericecal inflammatory changes.[ Pelvis:[Bladder collapsed. Uterus unremarkable. No adnexal mass.] Peritoneum/Retroperitoneum:No free air or free fluid. Aorta is not aneurysmal. Dlea-nm-qedlxntz plaque identified involving the aorta. No critical narrowing involving the mesenteric vessels. Common, internal and external iliac arteries are patent.[ Abd wall/Bones:Multilevel degenerative changes.[ CT/CT abdomen pelvis w con IMPRESSION: Negative acute inflammatory process or bowel obstruction. Colonic diverticulosis. Impression dictated by: Simba Cardona M.D. 03/30/2025 11:51 PM Dictation Location: [employer] Electronically authenticated by: [id number] Y Date: 03/30/2025 23:51
--- NOTE | 2025-03-30 22:22 | CT_ITS ---
The [address] [address] Patient Name: LAVONNE VILLATORO MRN: [id number] date: 1935 Sex: F Assigned Patient Location: ER Current Patient Location: Accession/Order Number: [id number] Exam Date: 03/30/2025 23:08 Report Date: 03/30/2025 23:47 At the request of: STEVENSON CARMICHAEL MD Procedure: CT angio chest CTA chest CLINICAL DATA: Acute mid thoracic back pain. TECHNIQUE: Intravenous contrast-enhanced CT angiography of the chest was performed. Axial, sagittal, coronal, and 3D-dimensional reconstructions were created and reviewed. These CT exams were performed using one or more of the following dose reduction techniques: Automated exposure control, adjustment of the mA and/or kV according to patient size, or use of iterative reconstruction technique. COMPARISON: None. FINDINGS: Chest: Mediastinum:Cardiomegaly. Coronary artery disease. No suspicious mediastinal or hilar adenopathy. Aorta is not aneurysmal without aortic dissection Lungs:Lobulated nodule right lower lobe 1.5 x 1.6 cm in size. Otherwise minimal hypoventilatory change. Lingular/right middle lobe scarring versus atelectasis. No effusion or pneumothorax. Abd: Cholecystectomy. Otherwise liver, adrenals, kidneys, spleen pancreas unremarkable.[ Soft tissues/Bones: Accentuation normal thoracic kyphosis. Multilevel superior plate depressions identified multilevel facet arthropathy. No displaced fracture. [] CT/CT angio chest IMPRESSION: Negative for aortic aneurysm or dissection. Right lower lobe nodule 1.5 x 1.6 cm size. Consider 3 month follow-up. This could be infectious inflammatory etiology. In the absence of infectious symptoms, neoplasm could be considered in appropriate clinical setting. Impression dictated by: Simba Cardona M.D. 03/30/2025 11:47 PM Dictation Location: [place] [address] Electronically authenticated by: [id number] Y Date: 03/30/2025 23:47
--- NOTE | 2025-03-30 22:25 | ECG_ITS ---
The [facility] Test Date: 2025-03-30 Pat Name: LAVONNE VILLATORO Department: Room: - Gender: Female Apron Operator: : 1935 Requested By: [id number] Order Number: [id number] Reading MD: JENNIFER DAVIS M.D. Measurements Intervals [place] Rate: 59 P: 40 NE: 172 QRS: 47 QRSD: 82 T: 40 QT: 472 QTc: 470 Interpretive Statements 1100 Sinus rhythm 8304 Long QTc interval 9150 abnormal ECG Compared to ECG 08/30/2024 12:54:03 No significant changes Electronically Signed On 03-30-2025 23:54:51 EDT by JENNIFER DAVIS M.D.
[2025-03-30 23:04] LABS: Hematocrit 38.0 % (36.0-48.0); Hemoglobin 12.7 g/dL (12.0-16.0); Immature Granulocytes Abs Auto 0.08 10^3/uL (0.00-0.03); Immature Granulocytes Pct Auto 1.0 % (0.0-0.5); Lymphocytes Absolute Auto 2.7 10^3/uL (1.2-3.8); Mean Corpuscular HGB Conc 33.4 g/dL (29.9-35.2); Mean Corpuscular Hemoglobin 33.9 pg (26.7-34.0); Mean Corpuscular Volume 101.3 fL (81.0-99.0); Platelet Count 221 10^3/uL (150-450); Red Blood Count 3.75 10^6/uL (4.20-5.40); White Blood Count 8.0 10^3/uL (4.0-11.0)
[2025-03-30 23:09] LABS: Alanine Aminotransferase 47 U/L (14-59); Albumin Globulin Ratio 1.1; Albumin Level 3.4 g/dL (3.4-5.0); Alkaline Phosphatase 110 U/L (46-116); Anion Gap 12.3; Aspartate Amino Transferase 29 U/L (15-37); Blood Urea Nitrogen 22.0 mg/dL (7.0-18.0); Calcium 8.9 mg/dL (8.5-10.1); Carbon Dioxide 26.6 mmol/L (21.0-32.0); Chloride 106 mmol/L (98-107); Estimated GFR (African America >60 (>=60 mL/min/1.73m^2); Estimated GFR (Non-African Ame >60 (>=60 mL/min/1.73m^2); Globulin 3.1 g/dL; Glucose 98 mg/dL (74-106); Potassium 3.9 mmol/L (3.5-5.1); Sodium 141 mmol/L (136-145); Total Protein 6.5 g/dL (6.4-8.2)
[2025-03-30] MEDS: 0.9 % SODIUM CHLORIDE 1,000 ML 125 ML IV (23:31)
[2025-03-30] MEDS: KETOROLAC TROMETHAMINE 30 MG/ML VIAL 15 MG IVP (23:31)
[2025-03-31] VITALS: BP 172/62; PULSE 62; O2SAT 92
[2025-03-31 00:10] VITALS: PULSE 62; O2SAT 93
[2025-03-31 00:20] VITALS: PULSE 62; O2SAT 94
[2025-03-31] MEDS: TRAMADOL HCL 50 MG TABLET PO (00:35)
[2025-03-31] MEDS: ONDANSETRON 4 MG RAPDIS TABLET SL (00:36)
== END 2025-03-31 00:44 | disposition home or self-care (01) ==
PROVIDERS: Emergency Provider Emergency Medicine; PCP Family Medicine
DX: M54.6 Pain in thoracic spine (principal); R91.1 Solitary pulmonary nodule; Z90.49 Acquired absence of other specified parts of digestive tract; M35.3 Polymyalgia rheumatica; Z79.82 Long term (current) use of aspirin; M19.90 Unspecified osteoarthritis, unspecified site
CPT/HCPCS: 36415; 71275; 74177; 80053; 81001; 84484; 85025; 93005; 96374; 99285; J1885; Q0162; Q9967

== ENCOUNTER 2025-04-04 06:32 | Day surgery (SDC) | payer MEDICARE, OTHER, SELFPAY ==
[2025-03-24 10:51] VITALS: BP 157/66; PULSE 55; TEMP 36.4; O2SAT 95; BMI 27.5
--- OUTSIDE RECORDS SUMMARY | 2025-04-04 06:36 | XMS_ITS | CCD ---
Author Organization [facility] CliniSyga Care Team Providers Care Client Leader Name Role Phone Suhas Garrett Unavailable Suhas [...] Provider Suhas Garrett DO Primary Care Provider [phone] Suhas Garrett Primary Care Unavailable Suhas Garrett Admitting Unavailable Suhas Garrett Attending Unavailable KunSuhas arellano Attending Unavailable Suhas Garrett Primary Care Unavailable KunsSuhas Admitting Unavailable KunSuhas arellano Attending Unavailable Suhas Garrett Primary Care Unavailable KunsSuhas Admitting Unavailable KunsSuhas Attending Unavailable Suhas Garrett Primary Care Unavailable GaelsShuas Admitting Unavailable Kuns Suhas TYLER Primary Care Provider [phone] SHY WOLF Referring Unavailable SUHAS GARRETT Primary [...] of OnsetReaction(s) Facility (20 sources)Alendronate; Translations: [Fosamax]Drug Udnmvdx52-71-2850EmsuidyPark[facility] Repository (20 sources)Amoxicillin; Translations: [amoxicillin]Drug Jgaswvy36-48-7644wkcss [place] [employer] Other (20 sources)Phenytoin; Translations: [Dilantin CAPS]Drug Rhxsmxp25-34-8630Obvh [place] [employer] Other (20 sources)Valproate; Translations: [Depakote ER TB24]Drug AllergyUnknowWalla Walla General Hospital [employer] Other (1 source)AlendronateDrug AllergyThe [facility] Repository (1 source)AmoxicillinDrug AllergyBet[facility] Repository (1 source)PhenytoinDrug AllergyBethesda North Hospital Repository (1 source)ValproateDrug AllergyThe [facility] Repository (20 sources)Acetaminophen / HYDROcodoneDrug Allergyelevated liver enzymesGrace Hospital [employer] Other (6 sources)AlendronateDrug Tohifcv70-80-8109AcpralhOhio State East Hospital (8 sources)HYDROcodone; Translations: [HYDROCODONE]Drug Ctaeqdi57-25-4816PZAultman Hospital Work Phone: (8 sources)Valproate; Translations: [VALPROIC ACID]Drug Fplofpo60-92-1426PwhrhifBlanchard Valley Health System [facility] Work Phone: (1 source)AcetaminophenDrug Cgxfqmx48-76-1389DdswndlowSelect Medical [facility] Repository (1 source)AlendronateDrug Mthpbjg91-81-6548JzicgepnxSelect Medical [facility] Repository (1 source)AmoxicillinDrug Tpcknjo46-41-3211HhcqxymtqSelect Medical [facility] Repository (1 source)HYDROcodoneDrug Jxjejwc17-95-4127RsebopdnlSelect Medical [facility] Repository (1 source)PhenytoinDrug Anumhbk34-09-8294GmetalojlSelect Medical [facility] Repository (1 source)ValproateDrug Axrzkdz51-44-6116NwmqhgmccSelect Medical [facility] Repository (5 sources)Valproate; Translations: [DIVALPROEX]Drug Ufelpxa12-06-0145JccskOhioHealth Work Phone: Medications Current Medications MedicationDrug Class(es)DatesSig [...] mg oral tablet (20 sources)Nonsteroidal Anti-inflammatory DrugStart: 03-25-9647itnj 1 tablet by mouth twice daily at mealtime as neededIbuprofen 600 MG 1 tablet with food or milk as needed Orally Twice a day as needed with food Jan, ActiveStart: 91-19-0108xsxg 1 tablet by mouth three times daily at mealtime as needed Ibuprofen 600 MG 1 tablet with food or milk as needed Orally TID PRN with food Jan, Not-Takinglevothyroxine sodium 0.1 mg oral tablet (20 sources)l-ThyroxineStart: 74-71-7868dofx 1 tablet by mouth once daily levothyroxine [...] ActivepredniSONE 10 mg oral tablet (20 sources)Start: 25-95-8069nddg 1 tablet by mouth once dailypredniSONE (Deltasone) 10 mg tablet Take 1 tablet (10 mg) by mouth once daily. 12/09/2024 ActiveStart: 87-44-8920dbnc 2 tablets by mouth once dailypredniSONE 10 MG 2 tablets x 7 days, 1 tablet x 7 days, then 1/2 tablet or 5mg daily thereafter Orally as directed Jun, ActiveStart: 64-55-4361tdbo 1 tablet by mouth every twenty-four hourspredniSONE 20 MG 1 tablet Orally Once a day for 10 days Apr, ActiveStart: 91-74-9891ftfs 1 tablet by mouth every other day predniSONE 2.5 MG 1 tablet Orally alternating every other day with 5mg Nov, ActiveStart: 97-99-4980slah 1 tablet by mouth every twenty-four hours predniSONE 2.5 MG 1 tablet Orally Once a day Apr, ActiveStart: 68-94-7971fpem 1 tablet by mouth every twenty-four hourspredniSONE 10 MG 1 tablet Orally Once a day for 90 days Apr, ActiveStart: 86-27-2779uskm 1 tablet by mouth every twenty-four hourspredniSONE 20 MG 1 tablet Orally Once a day for 30 day(s) Apr, ActiveStart: 13-44-4206bvpxrtXBHJ 20 MG 1 tablet with food or milk Orally 1 tab twice a day x 5 days , 1 tab every day x 5days for 10 days Feb, ActiveStart: 60-87-1854xipf 1 tablet by mouth at mealtime, then take 1 tablet by mouth twice daily, then take 1 tablet by mouth once dailypredniSONE 20 MG 1 tablet with food or milk Orally 1 tab twice a day x 5 days , 1 tab once a day X 5 days Jan, ActiveStart: 64-56-6291kkan 1 tablet by mouth every other daypredniSONE 5 MG 1 tablet Orally alternating every other day with 2.5mg Apr, ActiveStart: 02-22-2020 End: 65-38-7050nwxiotQOCN (Deltasone) 5 mg tablet Take 1 tablet (5 mg) by mouth once daily. Alternating 2.5 tab 11/02/2021 01/14/2025 Discontinued (Dose adjustment)Start: 64-43-0641txhi 1 tablet by mouth every twenty-four hours predniSONE 2.5 MG 1 tablet Orally Once a day Feb, ActiveStart: 14-73-2946bfbe 1.5 tablets by mouth every twenty-four hourspredniSONE 5 MG 1.5 tablets Orally Once a day Feb, ActivetraMADol hydrochloride 50 mg oral tablet (5 sources)Opioid AgonistStart: 43-51-9776rhkl 1 tablet by mouth every eight hourstraMADol HCl 50 MG 1 tablet as needed Orally tid Jun, ActiveStart: 54-98-3790djel 1 tablet by mouth every twenty-four hourstraMADol HCl 50 MG 1 tablet as needed Orally Once a day Jun, ActiveTylenol Arthritis Pain 650 MG (20 sources)Tylenol Arthritis Pain 650 MG as directed Orally Not-TakingTylenol Arthritis Pain 650 MG as directed Orally Active Completed/Discontinued Medications MedicationDrug Class(es)DatesSig (Normalized)Sig (Original)amLODIPine 10 mg oral tablet (20 sources)Dihydropyridine Calcium Channel BlockerStart: 45-70-2718wzmt 1 tablet by mouth every twenty-four hoursNorvasc 5 MG 1 tablet Orally Once a day for 90 day(s) May, ActiveStart: 06-03-2017 End: 26-57-2299vzqh 1 tablet by mouth once dailyamLODIPine (Norvasc) 10 mg tablet Take 1 tablet (10 mg) by mouth once daily. 12/13/2021 12/07/2024 D iscontinued (Dose adjustment)calcium carbonate 1500 mg oral tablet (11 sources) End: 88-74-7668rntd 1 tablet by mouth once dailycalcium carbonate [...] 24-Dec-2022 DO ActiveFish Oils (4 sources) End: 96-53-6950luel 1 capsule by mouth once dailyomega-3 (Fish [...] Not-Takingmelatonin 5 mg oral tablet (20 sources)Start: 54-04-4355tinf 1 tablet by mouth every twenty-four hours Melatonin 5 MG 1 tablet in the evening Orally Once a day Sep, Not-Taking/PRNmethylPREDNISolone (20 sources)CorticosteroidStart: 59-68-1683AKFY-MEDROL 41 - 125 mg Jan, 125 mgMulti Vitamin Oral Tablet (7 sources)take 1 tablet by mouth once dailyMulti Vitamin Oral Tablet TAKE 1 TABLET DAILY. Quantity: 0 Refills: 0 Ordered: 13-Dec-2021 DO ActiveOmega 3 500 CAPS (4 sources)Corydon 3 500 CAPS TAKE 1 CAPSULE Daily Quantity: 0 Refills: 0 Ordered: 13-Dec-2021 DO Activeoxycodone HCl/acetaminophen (OXYCODONE-ACETAMINOPHEN ORAL) (2 sources)Start: 02-23-2024 End: 70-32-5263qxfleivlv HCl/acetaminophen (OXYCODONE-ACETAMINOPHEN ORAL) Take by mouth. 02/23/2024 12/07/2024 Discontinued (Therapy completed)Start: 44-46-3330pfhtkjgyn HCl/acetaminophen (OXYCODONE-ACETAMINOPHEN ORAL) Take by mouth. 02/23/2024 ActivetraZODone hydrochloride 50 mg oral tablet (16 sources)Serotonin Reuptake InhibitorStart: 87-23-7558gfep 1 tablet by mouth every twenty-four hourstraZODone HCl 50 MG 1 tablet at bedtime as needed Orally Once a day prn Jul, Not-Taking/PRN Problems Active Problems Problem ClassificationProblemDateDocumented DateEpisodic/ChronicAbdominal pain (20 sources)Generalized abdominal pain; Translations: [Generalized abdominal pain]Onset: 02-22-2022 Resolved: 15-64-7215BmwzdvzhJkusdfewzzsowa/social admission (20 sources)Advance directive discussed with patient; Translations: [Other specified counseling]EpisodicCoronary atherosclerosis and other heart disease (20 sources)Coronary arteriosclerosis; 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 unga coronary artery without angina pectoris]Onset: 09-03-2023 ChronicDisorders of lipid metabolism (20 sources)Hyperlipidemia; Translations: [Hyperlipidemia, unspecified]Onset: 04-26-2021 Resolved: 42-93-6390EcavotiOhvuztqoo hypertension (20 sources)Hypertensive disorder; Translations: [Essential (primary) hypertension]Onset: 09-10-2021 Resolved: 24-16-1508RpqunzlPbdqg valve disorders (20 sources)Aortic valve stenosis; Translations: [Aortic valve disorders]Onset: 78-48-3852RewngbaHarfcrtouwv deficiencies (1 source)Vitamin D deficiency, unspecified; Translations: [Vitamin D deficiency, unspecified]Onset: 11-51-3814HunndqtWlyhhcavboxg (1 source)Osteoporosis; Translations: [Age-related osteoporosis without current pathological fracture]ChronicOther aftercare (1 source)Other fdc (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; Translations: [OTH TOOL/DIE MAKER CURRENT DRUG THERAPY]Onset: 69-20-2605SewkdkeaOkshm bone disease and musculoskeletal deformities (20 sources)Pain of left shoulder blade; Translations: [Other specified disorders of bone, shoulder]EpisodicOther bone disease and musculoskeletal deformities (20 sources)Osteopenia; Translations: [Other specified disorders of bone density and structure, multiple sites]EpisodicOther circulatory disease (20 sources)Cardiovascular symptoms; Translations: [Other specified symptoms and signs involving the circulatory and respiratory systems]EpisodicOther connective tissue disease (20 sources)Polymyalgia rheumatica; Translations: [Polymyalgia rheumatica]Onset: 114113-86-7277KzduxmfXovqf connective tissue disease (20 sources)Polymyalgia rheumatica; Translations: [Polymyalgia rheumatica]Onset: 04-26-2021 Resolved: 00-57-3121LkknooaNsikb connective tissue disease (1 source)Other muscle spasm; Translations: [OTHER MUSCLE SPASM]Onset: 48-50-8993UdsfnkjiTdgjv liver diseases (20 sources)Disease of liver; Translations: [Liver disease, unspecified]Chronic Other lower respiratory disease (20 sources)Radiologic increased density of lung; Translations: [Other disorders of lung]EpisodicOther non-epithelial cancer of skin (20 sources)Basal cell carcinoma of skin; Translations: [Basal cell carcinoma of skin, unspecified]EpisodicOther non-traumatic joint disorders (6 sources)Pain in left shoulder; Translations: [PAIN IN LEFT SHOULDER]Onset: 02-20-2022 Resolved: 28-55-2703RiiyarjnSciwl non-traumatic joint disorders (20 sources)Shoulder pain; Translations: [Pain in left shoulder]EpisodicOther nutritional; endocrine; and metabolic disorders (14 sources)Overweight in adulthood with body mass index of 25 or more but less than 30; Translations: [Overweight]Onset: 717998-42-3687TejyzjmpPrdaw nutritional; endocrine; and metabolic disorders (1 source)Overweight; Translations: [Overweight]46-39-6880FefzwfdoAfhxa nutritional; endocrine; and metabolic disorders (2 sources)Body mass index (BMI) 27.0-27.9, adult; Translations: [Body mass index (BMI) 27.0-27.9, adult]Onset: 45-25-6162DjqgmoaqUunat screening for suspected conditions (not mental disorders or infectious disease) (20 sources)Other specified abnormal findings of blood chemistry; Translations: [Elevated liver function tests]Onset: 02-26-2022 Resolved: 36-67-6602CiqowmhtGpsjplos codes; unclassified (20 sources)Insomnia; Translations: [Insomnia, unspecified]EpisodicResidual codes; unclassified (20 sources)Family history of malignant neoplasm of gastrointestinal tract; Translations: [Family history of malignant neoplasm of digestive organs]Episodic Residual codes; unclassified (20 sources)Difficulty sleeping ; Translations: [Sleep disorder, unspecified] EpisodicResidual codes; unclassified (3 sources)Insomnia, unspecifiedOnset: 10-01-2021 Resolved: 14-43-0157GzoqmftcUdttmocq codes; unclassified (9 sources)Never smoked any substance; Translations: [Other specified health status]Onset: 412461-33-5747ZimjxzhyXxqabgye codes; unclassified (2 sources)Other specified health status; Translations: [Other specified health status]Onset: 38-85-2099WvoemqktEgpjmikwzny; intervertebral disc disorders; other back problems (13 sources)Low back pain; Translations: [Lumbar back pain]EpisodicSprains and strains (20 sources)Strain of muscle and/or tendon of lower leg; Translations: [Strain of unspecified muscle and tendonat ankle and foot level, left foot, subsequent encounter]EpisodicThyroid disorders (20 sources)Hypothyroidism; Translations: [Hypothyroidism, unspecified]Onset: 04-26-2021 Resolved: 78-03-8431Cmoysld Past or Other Problems Problem ClassificationProblemDateDocumented DateEpisodic/ChronicConditions associated with dizziness or vertigo (2 sources)Dizziness and giddiness; Translations: [Dizziness and giddiness] Onset: 02-14-2022 Resolved: 40-85-7005FrvtirtoEojvx valve disorders (20 sources)Heart murmur; Translations: [Cardiac murmur, unspecified]Onset: 10-01-2021 Resolved: 58-04-3249SfvwwnbrQdgpg acquired deformities (1 source)Spondylolisthesis, lumbar regionOnset: 02-14-2022 Resolved: 22-51-5137HdizpnlqHxzeu bone disease and musculoskeletal deformities (1 source)Other specified disorders of bone density and structure, unspecified siteOnset: 02-14-2022 Resolved: 52-05-6242CavnxuvqXibfj bone disease and musculoskeletal deformities (1 source)Other specified disorders of bone, shoulderOnset: 02-22-2022 Resolved: 18-19-4550VnfjfpmuYbmgz bone disease and musculoskeletal deformities (1 source)Other specified disorders of bone density and structure, multiple sitesOnset: 02-22-2022 Resolved: 33-48-3405HwenrunhJblzg circulatory disease (20 sources)Carotid bruit; Translations: [Other symptoms involving cardiovascular system]Onset: 06-04-2023 Resolved: 100886-80-4712DzfpotjuLqnhs circulatory disease (1 source)Other specified symptoms and signs involving the circulatory and respiratory systems; Translations:[Other specified symptoms and signs involving the circulatory and respiratory systems]Onset: 48-73-4553WobhcbfaJdwhz liver diseases (1 source)Abnormal levels of other serum enzymes; Translations: [Abnormal levels of other serum enzymes]Onset: 55-09-6192JgctwrsyMorxf nutritional; endocrine; and metabolic disorders (2 sources)Body mass index (BMI) 26.0-26.9, adult; Translations: [Body mass index (BMI) 26.0-26.9, adult]Onset: 03-45-3123HyuhezxnCwfin skin disorders (1 source)Localized swelling, mass and lump, headOnset: 04-26-2021 Resolved: 25-70-1163OctayzfiElwytksh codes; unclassified (1 source)Sleep disorder, unspecifiedOnset: 08-02-2021 Resolved: 52-59-0802UydmyhfeEtiwsktp codes; unclassified (1 source)Asymptomatic menopausal stateOnset: 02-14-2022 Resolved: 44-10-2134VwpxouwlLscuuqfbelmq (7 sources)Never smoked tobacco; Translations: [Never smoker]Unclassified (1 source)Cough R05.9Onset: 01-11-2022 Resolved: 79-89-5841Vsmxpbhvpkmf (3 sources)Lumbar back pain M54.50Onset: 02-14-2022 Resolved: 69-48-9363Wridtodaibkk (1 source)History of COVID-19 Z86.16Onset: 02-14-2022 Resolved: 46-14-0562Anlzqbrlkcmi (10 sources)Lumbar back pain; Translations: [Lumbar back pain]Unclassified (1 source)Vaccine counseling Z71.85Unclassified (6 sources)Onset: 06-19-2023 Resolved: Viral infection (20 sources)Disease caused by 2019-nCoV; Translations: [COVID-19]Onset: 01-11-2022 Resolved: 01-11-2022 Results Test NameValueInterpretationReference RangeFacilityTRANSTHORACIC ECHO (TTE) COMPLETEon 47-30-1519HNXSOLVPITCSK ECHO (TTE) COMPLETENortFormerly [facility] [address], [address], [place] [address] TRANSTHORACIC ECHOCARDIOGRAM REPORT Patient Name: LAVONNE VILLATORO Reading Physician: [id number] Shy Wolf MD, [facility] Study Date: 12/21/2024 Ordering Provider: [id number] SHY WOLF MRN/PID: [id number] Fellow: Nurse: Date of /Age: 3 1935 / years Industrial Refrigeration Mechanic: Sheridan Lemus RDCS, T Gender Assigned at F Additional Staff: : Height: 157.48 cm Admit Date: Weight: 65.77 kg Admission Status: Outpatient BSA / BMI: 1.67 m2 / 26.52 Department Location: [facility] kg/m2 [place] Blood Pressure: 146 /68 mmHg Study Type: TRANSTHORACIC ECHO (TTE) COMPLETE Diagnosis/ICD: Nonrheumatic aortic (valve) stenosis-I35.0 Indication: HTN, Hyperlipidemia, 2/6 Systolic Murmur, Hypothyroid CPT Codes: Echo Complete w Full Doppler-41769 Study Detail: The following Echo studies were [...] AoV Area,Vmax: 0.85 cm (more content not included)...[facility] Transthoracicon 00-13-0891Ecyjfe Valve Area by Continuity of Peak Velocity0.85 mv1NszucyjzdjDetwiler Memorial Hospital Work Phone: [phone] Valve Area by Continuity of VTI0.9 cm2 [facility] Work Phone: [phone] mn biwj20rdNcBosvtekgwmLouis [facility] Work Phone: [phone] pk xspz34ixKsWlkwtasajyLouis [facility] Work Phone: [phone] pk vel3.27 m/[facility] Work Phone: [phone] vol index A/L43.4 ml/p0EtekdhrpzhLouis [facility] Work Phone: [phone] A4C EF76.9UnLouis [facility] Work Phone: [phone] Biplane EF71 %[facility] Work Phone: [phone] EF68 %[facility] Work Phone: [phone] cmUnLouis [facility] Work Phone: [phone] diam1.89 cmUnLouis [facility] Work Phone: [phone] avg E/e' ratio15.93UnLouis [facility] Work Phone: [phone] E/A djodn3HdtxnraaewLouis [facility] Work Phone: [phone] free wall pk S'11.98 cm/[facility] Work Phone: [phone]s [facility] Work Phone: [phone] annular plane systolic excursion2.4 cm [facility] Work Phone: [address], [address] [place] [address] TRANSTHORACIC ECHOCARDIOGRAM REPORT Patient Name: LAVONNE Bahena Physician: [id number] Shy Wolf MD, [facility] Study Date: 12/21/2024 Ordering Provider: [id number] SHY WOLF MRN/PID: [id number] Fellow: Nurse: Date of /Age: 3 1935 / 89 years Industrial Refrigeration Mechanic: Sheridan Lemus RDCS, RVT Gender Assigned at F Additional Staff: : Height: 157.48 cm Admit Date: Weight: 65.77 kg Admission Status: Outpatient BSA / BMI: 1.67 m2 / 26.52 Department Location: [facility] Heart kg/m2 [place] Blood Pressure: 146 /68 mmHg Study Type: TRANSTHORACIC ECHO (TTE) COMPLETE Diagnosis/ICD: Nonrheumatic aortic (valve) stenosis-I35.0 Indication: HTN, Hyperlipidemia, 2/6 Systolic Murmur, Hypothyroid CPT Codes: Echo Complete w Full Doppler-36833 Study Detail: The following Echo studies were [...] content not included)...Shy Kenney MD - 12/21/2024 [facility] [address], [address], [place] [address] TRANSTHORACIC ECHOCARDIOGRAM REPORT Patient Name: LAVONNE VILLATORO Reading Physician: [id number] Shy Wolf MD, [facility] Study Date: 12/21/2024 Ordering Provider: [id number] SHY WOLF MRN/PID: [id number] Fellow: Nurse: Date of /Age: 3 1935 / 89 years Industrial Refrigeration Mechanic: Sheridan Lemus RDCS, RVT Gender Assigned at F Additional Staff: : Height: 157.48 cm Admit Date: Weight: 65.77 kg Admission Status: Outpatient BSA / BMI: 1.67 m2 / 26.52 Department Location: [facility] kg/m2 [place] Blood Pressure: 146 /68 mmHg Study Type: TRANSTHORACIC ECHO (TTE) COMPLETE Diagnosis/ICD: Nonrheumatic aortic (valve) stenosis-I35.0 Indication: HTN, Hyperlipidemia, 2/6 Systolic Murmur, Hypothyroid CPT Codes: Echo Complete w Full Doppler-14404 Study Detail: The following Echo studies were [...] cm (18-25cm) LVOT VTI: (more content not included)...[facility] Work Phone: UnLouis [facility] Work Phone: Complete Blood Count Auto Diffon 76-11-1545Opkmapojv (Bld) [#/Vol]0.1 10*3/uLNormal0.0-0.2The [facility] Physician GroupComment on above:Performed By: #### [id number], CMP, TSH3, LIPID, CBC, T4F, ESR #### [facility] [address] [place] [address] USABasophils/100 WBC (Bld)1.1 %Normal.The [facility] Physician GroupComment on above:Performed By: #### [id number], CMP, TSH3, LIPID, CBC, T4F, ESR #### [place] [address] USAEosinophils (Bld) [#/Vol]0.1 10*3/uLNormal0.0-0.45The [facility] Physician GroupComment on above:Performed By: #### [id number], CMP, TSH3, LIPID, CBC, T4F, ESR #### [place] [address] USAEosinophils/100 WBC (Bld)2.2 %Normal.The [facility] Physician GroupComment on above:Performed By: #### [id number], CMP, TSH3, LIPID, CBC, T4F, ESR #### [place] [address] USAErythrocyte distribution width (RBC) [Ratio]13.5 %Normal 11.9-15.3The [facility] Physician GroupComment on above:Performed By: #### [id number], CMP, TSH3, LIPID, CBC, T4F, ESR #### [place] [address] USAHematocrit (Bld) [Volume fraction]37.9 %Kazmki72.0-46.4The [facility] Physician GroupComment on above:Performed By: #### [id number], CMP, TSH3, LIPID, CBC, T4F, ESR #### [place] [address] USAHemoglobin (Bld) [Mass/Vol]12.9 g/pBZawqia50.8-15.4The [facility] Physician GroupComment on above:Performed By: #### [id number], CMP, TSH3, LIPID, CBC, T4F, ESR #### [place] [address] USALymphocytes (Bld) [#/Vol]2.2 10*3/uLNormal1.00-4.8The [facility] Physician GroupComment on above:Performed By: #### [id number], CMP, TSH3, LIPID, CBC, T4F, ESR #### [place] [address] USALymphocytes/100 WBC (Bld)34.3 %Normal.The [facility] Physician GroupComment on above:Performed By: #### [id number], CMP, TSH3, LIPID, CBC, T4F, ESR #### [address]H (RBC) [Entitic mass]33.5 rzBlwawi97.7-34.3The [facility] Physician GroupComment on above:Performed By: #### [id number], CMP, TSH3, LIPID, CBC, T4F, ESR #### [address] (RBC) [Entitic vol]98.4 aMPuamiq82-747Ijm [facility] Physician GroupComment on above:Performed By: #### [id number], CMP, TSH3, LIPID, CBC, T4F, ESR #### [place] [address] USAMean Corpuscular HGB Conc34.1 g/wJHyvnss80.0-35.0The [facility] Physician GroupComment on above:Performed By: #### [id number], CMP, TSH3, LIPID, CBC, T4F, ESR #### [place] [address] USAMonocytes (Bld) [#/Vol]0.6 10*3/uLNormal0.0-0.8The [facility] Physician GroupComment on above:Performed By: #### [id number], CMP, TSH3, LIPID, CBC, T4F, ESR #### [place] [address] USAMonocytes/100 WBC (Bld)9.8 %Normal.The [facility] Physician GroupComment on above:Performed By: #### [id number], CMP, TSH3, LIPID, CBC, T4F, ESR #### [facility] [address] [place] [address] USANeutrophils (Bld) [#/Vol]3.4 10*3/uLNormal1.8-7.7The [facility] Physician GroupComment on above:Performed By: #### [id number], CMP, TSH3, LIPID, CBC, T4F, ESR #### [place] [address] USANeutrophils/100 WBC (Bld)52.6 %Normal.The [facility] Physician GroupComment on above:Performed By: #### [id number], CMP, TSH3, LIPID, CBC, T4F, ESR #### [place] [address] USANRBC%0.3 /100{WBC}Normal0-0.5The [facility] Comment on above:Performed By: #### [id number], CMP, TSH3, LIPID, CBC, T4F, ESR #### [place] [address] USAPlatelet mean volume (Bld) [Entitic vol]9.3 fLNormal 6.3-10.7The [facility] Physician GroupComment on above:Performed By: #### [id number], CMP, TSH3, LIPID, CBC, T4F, ESR #### [place] [address] USAPlatelets (Bld) [#/Vol]208 10*3/uQGjudco719-023Bsm [facility] Physician GroupComment on above:Performed By: #### [id number], CMP, TSH3, LIPID, CBC, T4F, ESR #### [place] [address] USARBC (Bld) [#/Vol]3.85 10*6/uLNormal3.60-5.00The [facility] Physician GroupComment on above:Performed By: #### [id number], CMP, TSH3, LIPID, CBC, T4F, ESR #### [place] [id number] USAWBC (Bld) [#/Vol]6.6 10*3/uLNormal3.8-11.6The [facility] Physician GroupComment on above:Performed By: #### [id number], CMP, TSH3, LIPID, CBC, T4F, ESR #### [place] [address] USAComprehensive Metabolic Panelon 49-00-6771Dnxggud [Mass/Vol]3.7 g/dLNormal3.5-5.7The [facility] Physician GroupComment on above: Performed By: #### [id number], CMP, TSH3, LIPID, CBC, T4F, ESR #### [place] [address] USAAlbumin/Globulin [Mass ratio]1.9 {ratio}NormalThe [facility] Physician GroupComment on above:Performed By: #### [id number], CMP, TSH3, LIPID, CBC, T4F, ESR #### [place] [address] USAALP [Catalytic activity/Vol]62 U/TTvllcf71-435Nng [facility]ician GroupComment on above:Performed By: #### [id number], CMP, TSH3, LIPID, CBC, T4F, ESR #### [place] [address] USAALT [Catalytic activity/Vol]21 U/LNormal7-52The [facility] Physician GroupComment on above:Performed By: #### [id number], CMP, TSH3, LIPID, CBC, T4F, ESR #### [place] [address] USAAnion gap [Moles/Vol]8.2 mmol/LNormal6.0-15.0The [facility] Physician GroupComment on above:Performed By: #### [id number], CMP, TSH3, LIPID, CBC, T4F, ESR #### [place] [address] USAAST [Catalytic activity/Vol]19 U/WQdtffp65-82Ctc [facility]ician GroupComment on above:Performed By: #### [id number], CMP, TSH3, LIPID, CBC, T4F, ESR #### [place] [address] USABilirubin [Mass/Vol]0.7 mg/dLNormal0.3-1.0The [facility] Physician GroupComment on above:Performed By: #### [id number], CMP, TSH3, LIPID, CBC, T4F, ESR #### [place] [address] USACalcium [Mass/Vol]9.7 mg/dLNormal8.6-10.3The [facility] Physician GroupComment on above:Performed By: #### [id number], CMP, TSH3, LIPID, CBC, T4F, ESR #### [place] [address] USAChloride [Moles/Vol]107 mmol/BCdgzvf99-872Gbm [facility]ician GroupComment on above:Performed By: #### [id number], CMP, TSH3, LIPID, CBC, T4F, ESR #### [place] [address] USACO2 [Moles/Vol]31.5 mmol/LHigh21.0-31.0The [facility] Physician GroupComment on above:Performed By: #### [id number], CMP, TSH3, LIPID, CBC, T4F, ESR #### [place] [address] USACreatinine [Mass/Vol]0.67 mg/dLNormal0.60-1.20The [facility] Physician GroupComment on above:Performed By: #### [id number], CMP, TSH3, LIPID, CBC, T4F, ESR #### [place] [address] USAGFR/1.73 sq M.predicted MDRD (S/P/Bld) [Vol rate/Area] mL/min/{1.73_m2}NormalThe [facility] Physician GroupComment on above:Performed By: #### [id number], CMP, TSH3, LIPID, CBC, T4F, ESR #### [place] [address] USAGlobulin (S) [Mass/Vol]1.9 g/dLNormalThe [facility] Physician GroupComment on above:Performed By: #### [id number], CMP, TSH3, LIPID, CBC, T4F, ESR #### [place] [address] USAGlucose [Mass/Vol]89 mg/jPGdwpdx96-116Zro [facility] GroupComment on above:Result Comment: Random Glucose Reference Range is dependent on time and content of last meal. Glucose of more than 200 mg/dL in a nonstressed, ambulatory subject supports the diagnosis of Diabetes Mellitus. ADA recommended reference rangePerformed By: #### [id number], CMP, TSH3, LIPID, CBC, T4F, ESR #### [place] [address] USAPotassium [Moles/Vol]3.7 mmol/LNormal3.5-5.1The [facility] Physician GroupComment on above:Performed By: #### [id number], CMP, TSH3, LIPID, CBC, T4F, ESR #### [place] [address] USAProtein [Mass/Vol]5.6 g/dLLow6.4-8.9The [facility]ician GroupComment on above:Performed By: #### [id number], CMP, TSH3, LIPID, CBC, T4F, ESR #### [place] [address] USASodium [Moles/Vol]143 mmol/JLehtou662-449Iuy [facility] GroupComment on above:Performed By: #### [id number], CMP, TSH3, LIPID, CBC, T4F, ESR #### [place] [address] USAUrea nitrogen [Mass/Vol]19 mg/dLNormal7-25The [facility] Physician GroupComment on above:Performed By: #### [id number], CMP, TSH3, LIPID, CBC, T4F, ESR #### [facility] [address] [place] [id number] USAErythrocyte Sedimentation Rateon 07-89-9640UII (Bld) [Velocity]9 mm/hNormal0-29The [facility] Physician GroupComment on above:Result Comment: PERFORMED BY: [place] [address] PATHOLOGIST SWIMMING POOL INSTALLER AND SERVICER JASIEL HURTADO M.D.Performed By: #### [id number], CMP, TSH3, LIPID, CBC, T4F, ESR #### [place] [address] USAFree T4 (Free Thyroxine)on 83-47-8004Mzke T4 [Mass/Vol] 0.74 ng/dLNormal0.61-1.12The [facility] Physician GroupComment on above:Performed By: #### LIPID, TSH3, CMP, CBC #### [place] [address] USALipid Panelon 19-89-0657Lhzueefqgxs [Mass/Vol]228 mg/dL Bznw527-963Iye [facility]ician GroupComment on above:Result Comment: Chol less than 200 mg/dl low risk Chol 201-239 mg/dl borderline risk Chol 240 mg/dl and greater high riskPerformed By: #### [id number], CMP, TSH3, LIPID, CBC, T4F, ESR #### [place] [id number] USACholesterol in HDL [Mass/Vol]96 mg/wLAkxb28-58Dqx [facility]ician GroupComment on above:Result Comment: HDL CHOL ATP-III CLASSIFICATION Cardiovascular Risk HDL > or equal to 60 mg/dL LOW HDL < 40 mg/dL HIGHPerformed By: #### [id number], CMP, TSH3, LIPID, CBC, T4F, ESR #### [place] [id number] USACholesterol.total/Cholesterol in HDL [Mass ratio]2.4 {ratio}Normal<5.0The [facility] Physician GroupComment on above:Performed By: #### [id number], CMP, TSH3, LIPID, CBC, T4F, ESR #### [facility] [address] [place] [address] USALDL Cholesterol,Bllpovcdrh342 mg/dLHigh0-100The [facility] Physician GroupComment on above:Result Comment: LDL ATP III CLASSIFICATION LDL less than 100 mg/dL Optimal LDL 100-129 mg/dL Near or above optimal LDL 130-159 mg/dL Borderline high LDL 160-189 mg/dL High LDL greater than 189 mg/dL Very highPerformed By: #### [id number], CMP, TSH3, LIPID, CBC, T4F, ESR #### [facility] [address] [place] [address] USATriglyceride w/Wshqae60 mg/dLNormal0-149The [facility] Physician GroupComment on above:Result Comment: TRIG ATP III CLASSIFICATION TRIG less than 150 mg/dL Normal TRIG 150-199 mg/dL Borderline high TRIG 200-500 mg/dL High TRIG greater than 500 mg/dL Very high Standard traceable to the Center for Disease Conrtrol and Prevention (CDC) test method.Performed By: #### [id number], CMP, TSH3, LIPID, CBC, T4F, ESR #### [facility] [address] [place] [address] USAVLDL HLTSSHNXGMD63 mg/dLNormalThe [facility]ician GroupComment on above:Performed By: #### [id number], CMP, TSH3, LIPID, CBC, T4F, ESR #### [facility] [address] [place] [address] USAThyroid Stimulating Hormoneon 76-76-7646EYU Qn6.38 m[IU]/L High0.45-5.33The [facility] Physician GroupComment on above:Performed By: #### LIPID, TSH3, CMP, CBC #### [facility] [address] [place] [address] USAVitamin D 25 Hydroxy Totalon 26-58-9926Ntpqqbi D 25 Hydroxy Total28.4 ng/uSAey27-932Rnj [facility]ician GroupComment on above: Result Comment: VITAMIN D STATUS 25(OH)VITAMIN D RANGE (ng/mL) Deficient <20 Insufficient 20 to <30 Sufficient 30 to 100 Reference: Yolanda ARIAS,Nathan NC, Keshawn FRANCO, et al. Evaluation,treatment, and prevention of vitamin D deficiency; an Endocrine Society clinical practice guideline. JCEM. 2010; 96(7):1911-30. PERFORMED BY: [place] [address] PATHOLOGIST SWIMMING POOL INSTALLER AND SERVICER JASIEL HURTADO M.D.Performed By: #### LIPID, TSH3, CMP, CBC #### [place] [address] USAXR scapula LT*on 50-03-7250EU scapula LT*[facility] [address] [place] [address] XRay Report Signed Patient: Lavonne Villatoro MR#: [id number] : 1935 Acct:[id number] Age/Sex: 88 / F ADM Date: 05/25/24 Loc: Room: Type: [facility] Attending Dr: Suhas Garrett DO Copies to: Suhas Garrett DO Ordering Provider: Suhas Garrett DO Date of Service: 05/25/24 XR/XR shoulder LT min 2V*: M25.519 - Pain in unspecified shoulder ([id number]) XR/XR scapula LT*: M25.519 - Pain in [...] Casandra Gómez M.D.05/25/2024 4:45 PM Dictation Location: [place] [address] Transcribed By: [facility] 05/25/241644 Dictated By: Casandra Gómez MD 05/25/241641 Signed By: 05/25/24 1645[facility] Physician GroupTRANSTHORACIC ECHO (TTE) COMPLETEon 08-89-1412FLZEQZOMLYTSB ECHO (TTE) COMPLETENo[address], [address] [place] [address] TRANSTHORACIC ECHOCARDIOGRAM REPORT Patient Name: LAVONNE VILLATORO Reading Physician: [id number] Shy Wolf MD, [facility] Study Date: 02/11/2024 Ordering Provider: [id number] SHY WOLF MRN/PID: [id number] Fellow: Nurse: Date of /Age: 3 1935 / 88 years Industrial Refrigeration Mechanic: LILIA Gender: F Additional Staff: Height: 157.48 cm Admit Date: Weight: 69.40 kg Admission Status: BSA / BMI: 1.71 m2 / 27.98 kg/m2 Department Location: [facility] Blood Pressure: 116 /76 mmHg Study Type: TRANSTHORACIC ECHO (TTE) COMPLETE Diagnosis/ICD: Nonrheumatic aortic (valve) stenosis-I35.0 Indication: HTN, Hyperlipidemia, 3/6 Systolic Murmur, Hypothryoid, Overweight CPT Codes: Echo Complete w Full Doppler-72680 Study Detail: The following Echo studies were [...] mmHg PIEDV: 2.23 m/s PADP: 22.9 mmHg [id number] Shy Wolf MD, FACC Electronical (more content not included)...[facility] BIon 01-20-6956KS carotid doppler [facility] [address] [place] [place] [address] Ultrasound Report Signed Patient: Lavonne Villatoro MR#: [id number] : 1935 Acct:[id number] Age/Sex: 88 / F ADM Date: 10/14/23 Loc: Room: Type: [facility] Attending Dr: Suhas Garrett DO Ordering Provider: [...] Hola Wynn M.D.10/15/2023 11:47 AM Dictation Location: [place] [address] Tech: Jackie Aguillon Transcribed By: KIRILL 10/15/23 1147 Dictated By: Hola Wynn MD 10/15/23 1145 Signed By: 10/15/23 1147[facility] Physician [facility] CenterComplete Blood Count Auto Diffon 93-17-6074Tsklufnmx (Bld) [#/Vol]0.0 10*3/uLNormal0.0-0.2The [facility] Physician GroupComment on above:Result Comment: PERFORMED BY: [place] [address] PATHOLOGIST SWIMMING POOL INSTALLER AND SERVICER JODY SOLANO M.D.Performed By: #### LIPID, TSH3, CMP, CBC #### [place] [address] USABasophils/100 WBC (Bld)0.7 %Normal.The [facility] Physician GroupComment on above:Performed By: #### LIPID, TSH3, CMP, CBC #### [place] [address] USAEosinophils (Bld) [#/Vol]0.1 10*3/uLNormal0.0-0.45The [facility] Physician GroupComment on above:Performed By: #### LIPID, TSH3, CMP, CBC #### [place] [address] USAEosinophils/100 WBC (Bld)1.6 %Normal.The [facility] Physician GroupComment on above:Performed By: #### LIPID, TSH3, CMP, CBC #### [place] [address] USAErythrocyte distribution width (RBC) [Ratio]14.8 %Normal 11.9-15.3The [facility] Physician GroupComment on above:Performed By: #### LIPID, TSH3, CMP, CBC #### [place] [address] USAHematocrit (Bld) [Volume fraction]39.9 %Tqbgwv16.0-46.4The [facility] Physician GroupComment on above:Performed By: #### LIPID, TSH3, CMP, CBC #### [place] [address] USAHemoglobin (Bld) [Mass/Vol]13.2 g/bZZfmaci02.8-15.4The [facility] Physician GroupComment on above:Performed By: #### LIPID, TSH3, CMP, CBC #### [place] [address] USALymphocytes (Bld) [#/Vol]2.6 10*3/uLNormal1.00-4.8The [facility] Physician GroupComment on above:Performed By: #### LIPID, TSH3, CMP, CBC #### [place] [address] USALymphocytes/100 WBC (Bld)43.5 %Normal.The [facility] Physician GroupComment on above:Performed By: #### LIPID, TSH3, CMP, CBC #### [place] [address] USAMCH (RBC) [Entitic mass]33.2 yjSeuycp23.7-34.3The [facility] Physician GroupComment on above:Performed By: #### LIPID, TSH3, CMP, CBC #### [place] [address] USAV (RBC) [Entitic vol]100.5 dYFlao95-360Jfm [facility]ician GroupComment on above:Performed By: #### LIPID, TSH3, CMP, CBC #### [place] [address] USAMean Corpuscular HGB Conc33.0 g/kDQkslnp73.0-35.0The [facility] Physician GroupComment on above:Performed By: #### LIPID, TSH3, CMP, CBC #### [place] [address] USAMonocytes (Bld) [#/Vol]0.6 10*3/uLNormal0.0-0.8The [facility] Physician GroupComment on above:Performed By: #### LIPID, TSH3, CMP, CBC #### [place] [address] USAMonocytes/100 WBC (Bld)9.7 %Normal.The [facility] Physician GroupComment on above:Performed By: #### LIPID, TSH3, CMP, CBC #### [place] [address] USANeutrophils (Bld) [#/Vol]2.7 10*3/uLNormal1.8-7.7The [facility] GroupComment on above:Performed By: #### LIPID, TSH3, CMP, CBC #### [place] [address] USANeutrophils/100 WBC (Bld)44.5 %Normal.The [facility] Physician GroupComment on above:Performed By: #### LIPID, TSH3, CMP, CBC #### [place] [address] USANRBC%0.2 /100{WBC}Normal0-0.5The [facility] Comment on above:Performed By: #### LIPID, TSH3, CMP, CBC #### [place] [address] USAPlatelet mean volume (Bld) [Entitic vol]9.2 fLNormal 6.3-10.7The [facility] Physician GroupComment on above:Performed By: #### LIPID, TSH3, CMP, CBC #### [place] [address] USAPlatelets (Bld) [#/Vol]229 10*3/nQVkcyju483-422Ros [facility] Physician GroupComment on above:Performed By: #### LIPID, TSH3, CMP, CBC #### [place] [address] USARBC (Bld) [#/Vol]3.98 10*6/uLNormal3.60-5.00The [facility] Physician GroupComment on above:Performed By: #### LIPID, TSH3, CMP, CBC #### [facility] [address] [place] [address] USAWBC (Bld) [#/Vol]6.0 10*3/uLNormal3.8-11.6The [facility] Physician GroupComment on above:Performed By: #### LIPID, TSH3, CMP, CBC #### [place] [address] USAComprehensive Metabolic Panelon 23-64-2045Dfwihkk [Mass/Vol]3.8 g/dLNormal3.5-5.7The [facility] GroupComment on above: Performed By: #### LIPID, TSH3, CMP, CBC #### [place] [address] USAAlbumin/Globulin [Mass ratio]1.7 {ratio}NormalThe [facility] Physician GroupComment on above:Performed By: #### LIPID, TSH3, CMP, CBC #### [place] [address] USAALP [Catalytic activity/Vol]72 U/UEslivz05-983Unz [facility] GroupComment on above:Performed By: #### LIPID, TSH3, CMP, CBC #### [place] [address] USAALT [Catalytic activity/Vol]43 U/LNormal7-52The [facility]ician GroupComment on above:Performed By: #### LIPID, TSH3, CMP, CBC #### [place] [address] USAAnion gap [Moles/Vol]8.9 mmol/LNormal6.0-15.0The [facility] GroupComment on above:Performed By: #### LIPID, TSH3, CMP, CBC #### [place] [address] USAAST [Catalytic activity/Vol]23 U/LWkxejv87-41Eey [facility] GroupComment on above:Performed By: #### LIPID, TSH3, CMP, CBC #### [place] [address] USABilirubin [Mass/Vol]1.2 mg/dLHigh0.3-1.0The [facility] Physician GroupComment on above:Performed By: #### LIPID, TSH3, CMP, CBC #### [place] [address] USACalcium [Mass/Vol]9.5 mg/dLNormal8.6-10.3The [facility] Physician GroupComment on above:Performed By: #### LIPID, TSH3, CMP, CBC #### [facility] [address] [place] [address] USAChloride [Moles/Vol]107 mmol/SZojlmb81-042Lnh [facility]ician GroupComment on above:Performed By: #### LIPID, TSH3, CMP, CBC #### [place] [address] USACO2 [Moles/Vol]30.0 mmol/KGyzmak30.0-31.0The [facility] Physician GroupComment on above:Performed By: #### LIPID, TSH3, CMP, CBC #### [place] [address] USACreatinine [Mass/Vol]0.76 mg/dLNormal0.60-1.20The [facility] Physician GroupComment on above:Performed By: #### LIPID, TSH3, CMP, CBC #### [place] [address] USAGFR/1.73 sq M.predicted MDRD (S/P/Bld) [Vol rate/Area] mL/min/{1.73_m2}NormalThe [facility] Physician GroupComment on above:Performed By: #### LIPID, TSH3, CMP, CBC #### [place] [address] USAGlobulin (S) [Mass/Vol]2.2 g/dLNormalThe [facility] Physician GroupComment on above:Performed By: #### LIPID, TSH3, CMP, CBC #### [place] [address] USAGlucose [Mass/Vol]79 mg/kZHorjwv47-213Kza [facility]ician GroupComment on above:Result Comment: Random Glucose Reference Range is dependent on time and content of last meal. Glucose of more than 200 mg/dL in a nonstressed, ambulatory subject supports the diagnosis of Diabetes Mellitus. ADA recommended reference rangePerformed By: #### LIPID, TSH3, CMP, CBC #### [facility] [address] [place] [address] USAPotassium [Moles/Vol]3.9 mmol/LNormal3.5-5.1The [facility] Physician GroupComment on above:Performed By: #### LIPID, TSH3, CMP, CBC #### [facility] [address] [place] [address] USAProtein [Mass/Vol]6.0 g/dLLow6.4-8.9The [facility]ician GroupComment on above:Performed By: #### LIPID, TSH3, CMP, CBC #### [facility] [address] [place] [address] USASodium [Moles/Vol]142 mmol/PEutxkq582-317Xir [facility] GroupComment on above:Performed By: #### LIPID, TSH3, CMP, CBC #### [facility] [address] [place] [address] USAUrea nitrogen [Mass/Vol]22 mg/dLNormal7-25The [facility]ician GroupComment on above:Performed By: #### LIPID, TSH3, CMP, CBC #### [place] [address] USALipid Panelon 92-87-4459Nbmssrrdxaf [Mass/Vol]243 mg/dL Rkyo990-914Reh [facility]ician GroupComment on above:Result Comment: Chol less than 200 mg/dl low risk Chol 201-239 mg/dl borderline risk Chol 240 mg/dl and greater high riskPerformed By: #### LIPID, TSH3, CMP, CBC #### [place] [address] USACholesterol in HDL [Mass/Vol]98 mg/iRIobo87-15Lcb [facility]ician GroupComment on above:Result Comment: HDL CHOL ATP-III CLASSIFICATION Cardiovascular Risk HDL > or equal to 60 mg/dL LOW HDL < 40 mg/dL HIGHPerformed By: #### LIPID, TSH3, CMP, CBC #### [facility] [address] [place] [id number] USACholesterol.total/Cholesterol in HDL [Mass ratio]2.5 {ratio}Normal<5.0The [facility] Physician GroupComment on above:Performed By: #### LIPID, TSH3, CMP, CBC #### [facility] [address] [place] [address] USALDL Cholesterol,Ongndoliew884 mg/dLHigh0-100The [facility] Physician GroupComment on above:Result Comment: LDL ATP III CLASSIFICATION LDL less than 100 mg/dL Optimal LDL 100-129 mg/dL Near or above optimal LDL 130-159 mg/dL Borderline high LDL 160-189 mg/dL High LDL greater than 189 mg/dL Very highPerformed By: #### LIPID, TSH3, CMP, CBC #### [place] [address] USATriglyceride w/Kxvldq712 mg/dLNormal0-149The [facility] Physician GroupComment on above:Result Comment: TRIG ATP III CLASSIFICATION TRIG less than 150 mg/dL Normal TRIG 150-199 mg/dL Borderline high TRIG 200-500 mg/dL High TRIG greater than 500 mg/dL Very high Standard traceable to the Center for Disease Conrtrol and Prevention (CDC) test method.Performed By: #### LIPID, TSH3, CMP, CBC #### [place] [address] USAVLDL PAWRGBOOBLZ08 mg/dLNormalThe [facility] Physician GroupComment on above:Performed By: #### LIPID, TSH3, CMP, CBC #### [place] [id number] USAThyroid Stimulating Hormoneon 96-67-5578IJS Qn4.01 m[IU]/L Normal0.45-5.33The [facility] Physician GroupComment on above:Result Comment: PERFORMED BY: [place] [address] PATHOLOGIST SWIMMING [employer]OL INSTALLER AND SERVICER JODY SOLANO M.D.Performed By: #### LIPID, TSH3, CMP, CBC #### [facility] [address] [place] [address] USAComplete Blood Count Auto Diffon 75-76-7800Biiwvmbmj (Bld) [#/Vol]0.547566046 10*3/uLNormal0.0-0.2 10*3/[employer] Other Basophils/100 WBC (Bld)0.900 %. %[employer] Other Eosinophils (Bld) [#/Vol]0.853083868 10*3/uLNormal0.0- 0.45 10*3/[employer] Other Eosinophils/100 WBC (Bld)1.100 %. %[employer] Other Erythrocyte distribution width (RBC) [Ratio]14.000 % Puhoex77.9-15.3 %[employer] Other Hematocrit (Bld) [Volume fraction]37.700 %Wbvddm08.0- 46.4 %[employer] Other Hemoglobin (Bld) [Mass/Vol]12.862751 g/nYQfcgam79.8- 15.4 g/dLNoHammer & Chisel, Inc. Other Lymphocytes (Bld) [#/Vol]2.075786293 10*3/uLNormal 1.00-4.8 10*3/[employer] Other Lymphocytes/100 WBC (Bld)35.100 %. %[employer] Other MCH (RBC) [Entitic mass]33.3000 pmHrugji49.7-34.3 pg [employer] Other MCV (RBC) [Entitic vol]99.7000 gAPqozcl22-241 fLEndonovo Therapeutics Other Monocytes (Bld) [#/Vol]0.435265769 10*3/uLNormal0.0- 0.8 10*3/[employer] Other Monocytes/100 WBC (Bld)10.000 %. %[employer] Other Neutrophils (Bld) [#/Vol]3.378649311 10*3/uLNormal1.8- 7.7 10*3/[employer] Other Neutrophils/100 WBC (Bld)52.900 %. %[employer] Other Platelet mean volume (Bld) [Entitic vol]9.9000 fL Normal6.3-10.7 fLDolph [employer] Other Platelets (Bld) [#/Vol]224 10*3/rSRxpfbr818-336 10*3/[employer] Other RBC (Bld) [#/Vol]3.78 10*6/uLNormal3.60-5.00Dolph [employer] Other WBC (Bld) [#/Vol]7.429566633 10*3/uLNormal3.8-11.6 10*3/[employer] Other Complete Blood Count Auto Diff7.1 10*3/uLNormal3.8- 11.6 10*3/[employer] Other Complete Blood Count Auto Diff33.4 g/wBBvjnwi90.0-35.0 g/dLEndonovo Therapeutics Other Complete Blood Count Auto Diff0.1 /100{WBC}Normal0-0.5 /100{WBC}[employer] Other Comprehensive Metabolic Panelon 59-04-5547Sdjvmvp [Mass/Vol]3.163198 g/dLNormal3.5-5.7 g/dLNoJHL Biotech [employer] Other Albumin/Globulin [Mass ratio]1.7 {ratio}[employer] Other ALP [Catalytic activity/Vol]140 U/JXyal53-544 U/[employer] Other ALT [Catalytic activity/Vol]71 U/LHigh7-52 U/[employer] Other AST [Catalytic activity/Vol]20 U/RMrlase15-99 U/[employer] Other Bilirubin [Mass/Vol]0.0697974 mg/dLNormal0.3-1.0 mg/dL [employer] Other Calcium [Mass/Vol]9.4830089 mg/dLNormal8.6-10.3 mg/dL [employer] Other Chloride [Moles/Vol]107 mmol/KLkulqg91-108 mmol/[employer] Other CO2 [Moles/Vol]30.35369191 mmol/NSrpfnd33.0-31.0 mmol/[employer] Other Creatinine [Mass/Vol]0.75025827 mg/dLNormal0.60-1.20 mg/dLNoHammer & Chisel, Inc. Other GFR/1.73 sq M.predicted MDRD (S/P/Bld) [Vol rate/Area] mL/min/{1.73_m2}[employer] Other Glucose [Mass/Vol]89 mg/kPMtrxom64-404 mg/dLEndonovo Therapeutics Other Potassium [Moles/Vol]3.03389444 mmol/LNormal3.5-5.1 mmol/[employer] Other Protein [Mass/Vol]6.666767 g/dLLow6.4-8.9 g/dLDolph [employer] Other Sodium [Moles/Vol]143 mmol/BVplvlf701-049 mmol/LNcolumbia regional hospital [employer] Other Urea nitrogen [Mass/Vol]21 mg/dLNormal7-25 mg/dLDolph [employer] Other Comprehensive Metabolic Panel2.2 g/dLNocedar county memorial hospital [employer] Other Free T4 (Free Thyroxine)on 39-65-8089Xjew T4 [Mass/Vol]1.82192871 ng/dLHigh0.61-1.12 ng/dLDolph [employer] Other Thyroid Antibodies TPO+Tg Abon 90-30-3399Byaydll Antibodies TPO+Tg Fq354-42Ddadf Myagi Other Thyroid Antibodies TPO+Tg Ab<1.00.0-0.9Dolph Myagi Other Thyroid Stimulating Hormoneon 71-91-9449AWO Qn 2.25403418671 m[IU]/LNormal0.45-5.33 u[iU]/mLNEvent 38 [employer] Other Echocardiogramon 58-83-8138MzxnvcwglnuuqsfjPrbtfChristopher Ville [id number] TRANSTHORACIC ECHOCARDIOGRAM REPORT Patient Name: LAVONNE Bahena Physician: [id number] Shy Wolf [facility] Study Date: 02/26/2023 Referring SHY WOLF Physician: MRN/PID: [id number] PCP: Suhas Garrett MD Accession/Order#: [id number] [facility] Location: Date of : 1935 Fellow: Gender: F Nurse: Admit Date: Industrial Refrigeration Mechanic: Sheridan Escalantez RDCS, RVT Height: 157.48 cm CC Report to: Weight: 67.13 kg Study Type: Echocardiogram BSA: 1.68 m2 Blood Pressure: 122 /76 mmHg Diagnosis/ICD: I35.0-Nonrheumatic aortic (valve) stenosis; R01.1-Cardiac murmur, unspecified Indication: HTN, Hyperlipidemia, Overweight, Hypothyroid, Polymyalgia Rheumatica Procedure/CPT: Echo Complete w Full Doppler-19831 Study Detail: The following Echo studies were [...] velocity across the aortic valve has increased creb269 cm/s up to 374 cm/s and aortic [...] mmHg PIEDV: 2.50 m/s PADP: 28.0 mmHg [id number] Shy Wolf MD, FACC Electronically signed on 03/01/2023 at 2:16:46 PM Final NormalUCHealth Highlands Ranch HospitalOffice Visit (Cardiology)on 78-77-0154Mvyvex-up visitDiagnoses/Problems Assessed Aortic stenosis (424.1) (I35.0) Murmur, cardiac (785.2) (R01.1) Essential hypertension (401.9) (I10) Hyperlipidemia (272.4) (E78.5) Overweight with body mass index (BMI) of 27 to 27.9 in adult (278.02,V85.23) (E66.3,Z68.27) Never smoker Hypothyroidism (244.9) (E03.9) PMR (polymyalgia rheumatica) (725) (M35.3) Orders Aortic stenosis, Murmur, cardiac Echocardiogram; Status:Hold For - Scheduling,Retrospective Authorization; Requested for:[id number]; Essential hypertension, Hyperlipidemia Changed: From Aspirin EC 81 MG TBEC TAKE 1 TABLET To Aspirin 81 MG Oral Tablet Delayed Release TAKE 1 TABLET DAILY Overweight with body mass index (BMI) of 27 to 27.9 in adult Healthy Weight Tips; Status:Complete - Retrospective Authorization; Done: [id number] Some eating tips that can help you lose weight.; Status:Complete - Retrospective Authorization; Done: [id number] SocHx: Never smoker Tobacco Use Screening; Status:Complete; Done: [id number] Patient Instructions Please bring all medicines, vitamins, [...] being tapered gradually Shy Wolf MD, [facility] Past Medical History Problems History of [...] Multi Vitamin Oral TabletTAKE 1 TABLET DAILY. Corydon-3 Fish Oil 1000 MG Oral CapsuleTAKE 1 [...] negative for complaint. Vitals Vital Signs Recorded: 34Lxx5118 11:32AM Heart Rate68, R Radial Nqgsgygr508, RUE, Sitting Pxotzfyda67, RUE, Sitting Height5 ft 2 in Qhcrxc663 lb BMI Qvijkvtjmt95.07 kg/m2 BSA Calculated1.68 Tobacco Useb) No PHQ-2 [...] included)...NormalUH TouchworksTobacco Screening.on 12-24-2022 Adult depression screening assessmentNoHighline [facility] [place] Work Phone: Fall risk assessmenta) No falls within the last year [facility] [employer] [address] DO Work Phone: Tobacco use status CPHSb) [facility] [place] Work Phone: Complete Blood Count Auto Diffon 66-33-2094Gficuebrm (Bld) [#/Vol]0.096065333 10*3/uLNormal0.0-0.2 10*3/[employer] Other Basophils/100 WBC (Bld)0.700 %. %[employer] Other Eosinophils (Bld) [#/Vol]0.459201566 10*3/uLNormal0.0- 0.45 10*3/[employer] Other Eosinophils/100 WBC (Bld)0.700 %. %[employer] Other Erythrocyte distribution width (RBC) [Ratio]13.500 % Bmyodx96.9-15.3 %[employer] Other Hematocrit (Bld) [Volume fraction]38.400 %Zqvgka29.0- 46.4 %[employer] Other Hemoglobin (Bld) [Mass/Vol]12.544913 g/gHZupseb58.8- 15.4 g/dLNoJHL Biotech Myagi Other Lymphocytes (Bld) [#/Vol]0.769653751 10*3/uLLow1.00- 4.8 10*3/[employer] Other Lymphocytes/100 WBC (Bld)12.600 %. %[employer] Other MCH (RBC) [Entitic mass]33.7000 esQtmocz31.7-34.3 pg [employer] Other MCV (RBC) [Entitic vol]100.4000 uDStmu09-442 fLJHL [employer]otech Myagi Other Monocytes (Bld) [#/Vol]0.386474216 10*3/uLNormal0.0- 0.8 10*3/[employer] Other Monocytes/100 WBC (Bld)6.800 %. %[employer] Other Neutrophils (Bld) [#/Vol]5.303259070 10*3/uLNormal1.8- 7.7 10*3/[employer] Other Neutrophils/100 WBC (Bld)79.200 %. %[employer] Other Platelet mean volume (Bld) [Entitic vol]9.4000 fL Normal6.3-10.7 [facility]Hammer [facility] Chisel[facility] Other Platelets (Bld) [#/Vol]223 10*3/tDSgvuen348-545 10*3/[employer] Other RBC (Bld) [#/Vol]3.6345179345 10*6/uLNormal3.60-5.00 10*6/[employer] Other WBC (Bld) [#/Vol]6.886178053 10*3/uLNormal3.8-11.6 10*3/[employer] Other Complete Blood Count Auto Diff6.6 10*3/uLNormal4.5- 11.0 10*3/[employer] Other Complete Blood Count Auto Diff33.6 g/qXVcplei09.0-35.0 g/dLEndonovo Therapeutics Other Complete Blood Count Auto Diff0.1 %Normal0-0.5 %[employer] Other Erythrocyte Sedimentation Rateon 78-35-6599HRV (Bld) [Velocity]28 mm/hNormal0-29Dolph Myagi Other VASC LAB Carotid Artery Duplex Ultrasoundon 02-21-2022 US.doppler Carotid arteriesHighline Community [facility] [place] [address] [place] Work Phone: COVID Quick Testingon 97-12-5054YqwrxtPmqvmcfsRbzes Myagi Other Falls Screening (Age 18+)on 18-59-0691Gdzn risk assessmenta) No falls within the last yearHigh[facility] [address] DO Work Phone: Office Visit (Cardiology)on 56-85-7324Coxbwl-up visit Diagnoses/Problems Assessed Essential hypertension (401.9) (I10) [...] Multi Vitamin Oral TabletTAKE 1 TABLET DAILY. Corydon 3 500 CAPSTAKE 1 CAPSULE Daily predniSONE 5 MG Oral Jjeeuw9NN 7.5MG BY MOUTH ONE DAILY ALTERNATING EVERY OTHER DAY Allergies Medication amoxicillin Hives;; Recorded By: Kayla Orr; 10/17/2021 10:50:34 AM Dilantin CAPS Rash; Recorded By: Kayla Orr; 10/17/2021 10:50:34 AM Fosamax eye pain; Recorded By: Kayla Orr; 10/17/2021 10:50:34 AM Depakote ER TB24 Recorded By: Kayla Orr; 10/17/2021 10:50:34 AM Vitals Vital Signs Recorded: 26Dec2021 11:04AMRecorded: 26Dec2021 11:00AM Heart Rate56, R Dobxrt03, R Radial Ozckhzdb045, LUE, Ozwjeoc715, RUE Bgqylwjgb12, LUE, Entknbu36, RUE Height5 ft 2 in5 ft 2 in Unssla845 lb 143 lb BMI Yuyvbeupyv82.16 kg/m226.16 kg/m2 BSA Calculated1.661.66 Falls Screening (Age 18+)a) No falls within the last year Signatures Electronically signed by : Shy Wolf MD; Dec 26 2021 4:02PM EST (Author) [facility] TouchworksTobacco Screening.on 24-89-6400Dyiet depression screening assessmentNoC[facility] Work Phone: Fall risk assessmenta) No falls within the last year [facility] Work Phone: Tobacco use status CPHSb) [facility] Work Phone: Vital Signs Date TimeVital SignValuePerforming XovgkugjfDajyszpm86-90-7920 11:07-0400Body vznatk382.5 cmShy Wolf MD Work Phone: [facility]08-08-2025 11:07-0400 Body mass index (BMI) [Ratio]27.44 kg/e8VasnstShy Wolf MD Work Phone: [facility]08-08-2025 11:07-0400 Body .04 kgShy Wolf MD Work Phone: [facility]08-08-2025 11:07-0400 Diastolic blood cdirjllj16 mm[Hg]Shy Wolf MD Work Phone: [phone]([phone] [place], [place] 5972908-08-2025 11:07-0400 Heart rate60 /minShy Wolf MD Work Phone: 1([phone] [place], [place] 5972908-08-2025 11:07-0400 Systolic blood xsyzaapy966 mm[Hg]Shy Wolf MD Work Phone: 1(794)333-[address] [place], [place] 5972907-15-2025 12:30-0400 Body wouzqc703.[address]07-15-2025 12:30-0400 Body mass index (BMI) [Ratio]26.52 kg/m[address] 12-21-2024 12:30-0400Body ktvics73.[address] 12-21-2024 12:30-0400Diastolic blood bfygsaps91 mm[Hg][address]07-15-2025 12:30-0400Systolic blood mm[Hg][address]07-02-2025 13:56-0400Diastolic blood ekiudjwx17 mm[Hg]Reuben Burns CLAIMS PROCESSOR-WINDOWS DESKTOP ENGINEER Work Phone: [phone])184-[address] [place], [place] 5972907-02-2025 13:56-0400 Systolic blood mm[Hg]Reuben Burns CLAIMS PROCESSOR-WINDOWS DESKTOP ENGINEER Work Phone: [phone](040)450-[address] [place], [place] 5972907-01-2025 14:59-0400 Body penyeh292.5 cmReuben Burns CLAIMS PROCESSOR-WINDOWS DESKTOP ENGINEER Work Phone: 1(930)024-[address] [place], [place] 5[address]07-01-2025 14:59-0400 Body mass index (BMI) [Ratio]26.45 kg/t5AyrflReuben Burns CLAIMS PROCESSOR-WINDOWS DESKTOP ENGINEER Work Phone: 3(052)340-[address] [place], [place] 597[address]07-01-2025 14:59-0400 Body sltugu76.59 kgReuben Burns CLAIMS PROCESSOR-WINDOWS DESKTOP ENGINEER Work Phone: [phone](524)186-[address] [place], [place] 5[address]07-01-2025 14:59-0400 Heart rate62 /Torreymurali Burns CLAIMS PROCESSOR-WINDOWS DESKTOP ENGINEER Work Phone: [facility]11-08-2024 13:16-0500 Body upmgke138.5 cmShy Wolf MD Work Phone: [facility]11-08-2024 13:16-0500 Body mass index (BMI) [Ratio]26.67 kg/g6LavaneShy Wolf MD Work Phone: 3([phone])443-[address] [place], [place] 5972911-08-2024 13:16-0500 Body kpcfuv06.13 kgShy Wolf MD Work Phone: 1(333)233-[address] [place], [place] 5972911-08-2024 13:16-0500 Diastolic blood fqqfwgyd63 mm[Hg]Shy Wolf MD Work Phone: 1(871)143-[address] [place], [place] 5972911-08-2024 13:16-0500 Heart rate62 /minShy Wolf MD Work Phone: 9(966)257-[address] [place], [place] 597[address]11-08-2024 13:16-0500 Systolic blood mqsfykxk352 mm[Hg]Shy Wolf MD Work Phone: 4(125)587-[address] [place], [place] 5972909-04-2024 12:28-0400 Body exdxgp878.[address] [place], [place] 9131609-04-2024 12:28-0400 Body mass index (BMI) [Ratio]27.98 kg/m2Ely [address] [place] [address] 02-11-2024 12:28-0400Body kilqxx81.[address] [place] [address] 02-11-2024 12:28-0400Diastolic blood jrtigefw11 mm[Hg][address]09-04-2024 12:28-0400Systolic blood czxbyumh813 mm[Hg][address]01-26-2024 11:15-0500Body ipydbz373.48 cmSuhas Garrett Other [employer] Other [id number] 11:15-0500Body mass index (BMI) [Ratio] 28.53 kg/y7Acayt Kunadan Other [employer] Other 01-26-2024 11:15-0500Body fknnko39.76 kgCarterraquel Garrett Other [employer] Other 01-26-2024 11:15-0500Diastolic blood bsaenaow73 mm[Hg] Suhas Ugo Other [employer] Other 01-26-2024 11:15-0500Respiratory rate20 /minSuhas Ugo Other [employer] Other 01-26-2024 11:15-7160FbH7% (BldA) [Mass fraction]99 % Suhasraquel Mayoadan Other [employer] Other 01-26-2024 11:15-0500Systolic blood eixqbrhz964 mm[Hg] Suhas Garrett Other [employer] Other 01-11-2024 11:09-0500Body digufv335.5 cmShy Wolf MD Work Phone: [facility]01-11-2024 11:09-0500 Body mass index (BMI) [Ratio]27.98 kg/d4WqhdmkShy Wolf MD Work Phone: [facility]01-11-2024 11:09-0500 Body .4 kgShy Wolf MD Work Phone: [facility]01-11-2024 11:09-0500 Diastolic blood mm[Hg]Shy Wolf MD Work Phone: [facility]01-11-2024 11:09-0500 Heart rate60 /minShy Wolf MD Work Phone: [facility]01-11-2024 11:09-0500 Systolic blood mm[Hg]Shy Wolf MD Work Phone: [facility]12-22-2023 11:00-0500 Body ecvhjc544.48 cmSuhas Garertt Other [employer] Other 400248-18-3816 11:00-0500Body mass index (BMI) [Ratio]27.8 kg/t1IgjtjSuhas Garrett Other [employer] Other 12-22-2023 11:00-0500Body ysppsi82.95 kgSuhas Garrett Other [employer] Other 12-22-2023 11:00-0500Diastolic blood thadocbu03 mm[Hg] Suhas Garrett Other [employer] Other 12-22-2023 11:00-0500Respiratory rate18 /minSuhas Garrett Other [employer] Other 12-22-2023 11:00-0588YcU3% (BldA) [Mass fraction]96 % Suhas Garrett Other [employer] Other 12-22-2023 11:00-0500Systolic blood rlubctew086 mm[Hg] Suhas Garrett Other [employer] Other 09-22-2023 10:30-0400Body owargh986.48 cmSuhas Garrett Other [employer] Other 09-22-2023 10:30-0400Body mass index (BMI) [Ratio] 27.98 kg/v0Ojgqu Gaeladan Other [employer] Other 09-22-2023 10:30-0400Body lsehcs07.4 kgCarterraquel Garrett Other [employer] Other 09-22-2023 10:30-0400Diastolic blood cmygltvd10 mm[Hg] Suhas Garrett Other [employer] Other 09-22-2023 10:30-0400Respiratory rate16 /minCarterraquel Garrett Other [employer] Other 09-22-2023 10:30-4095GjK3% (BldA) [Mass fraction]91 % Suhas Gaeladan Other [employer] Other 09-22-2023 10:30-0400Systolic blood xgdmczys373 mm[Hg] Suhas Garrett Other [employer] Other 07-18-2023 11:32-0400Body .48 cmSuhas Hoffman Ugo Work Phone: [phone]-Gsizr [place] [employer] 250 DO Work Phone: 1(172) 264-643107-18-2023 11:32-0400Body mass index (BMI) [Ratio] 27.07 kg/l9Sqhlt P Ugo Work Phone: [phone]-Ajmqz [place] [employer] 250 DO Work Phone: 1(765) 839-317907-18-2023 11:32-0400Body surface area Derived from formula1.68 k7Dkmyx P Gaels Work Phone: [phone]-Samlo [facility] 250 DO Work Phone: 1(228) 179-979907-18-2023 11:32-0400Body floovb81.13 kgSuhas Mayoadan Work Phone: mp240-1348HP-Tptbv [facility] 250 DO Work Phone: 1(549) 843-305107-18-2023 11:32-0400Diastolic blood vcuardds12 mm[Hg] Suhas Garrett Work Phone: [phone]-Fusta [facility] 250 DO Work Phone: 1(205) 655-848707-18-2023 11:32-0400Heart rate68 /minSuhas Mayos Work Phone: mp451-3251YR-Woknx [facility] 250 DO Work Phone: 1(165) 699-312407-18-2023 11:32-0400Systolic blood wseygltq050 mm[Hg] Suhas Garrett Work Phone: mp019-3621WB-Wgzsv [facility] 250 DO Work Phone: 1(350) 837-505506-30-2023 10:30-0400Body .48 cmSuhas Garrett Other [employer] Other 06-30-2023 10:30-0400Body mass index (BMI) [Ratio] 27.98 kg/k3BqeihSuhas Garrett Other [employer] Other 06-30-2023 10:30-0400Body yfredt25.4 kgSuhas Garrett Other [employer] Other 06-30-2023 10:30-0400Diastolic blood mirvxnux08 mm[Hg] Suhas Garrett Other [employer] Other 06-30-2023 10:30-0400Respiratory rate16 /minSuhas Garrett Other [employer] Other 06-30-2023 10:30-3895EmC0% (BldA) [Mass fraction]98 % Suhas Garrett Other [employer] Other 06-30-2023 10:30-0400Systolic blood gmluvrwa290 mm[Hg] Suhasraquel Garrett Other [employer] Other 04-14-2023 11:45-0400Body aqkqon906.48 cmSuhas Garrett Other [employer] Other 04-14-2023 11:45-0400Body mass index (BMI) [Ratio] 26.34 kg/g9McslmSuhas Garrett Other [employer] Other 04-14-2023 11:45-0400Body .32 kgSuhas Garrett Other [employer] Other 04-14-2023 11:45-0400Diastolic blood nlepgcpi22 mm[Hg] Suhas Garrett Other [employer] Other 04-14-2023 11:45-0400Respiratory rate16 /minSuhas Garrett Other [employer] Other 04-14-2023 11:45-0953DaJ1% (BldA) [Mass fraction]98 % Suhasraquel Garrett Other [employer] Other 04-14-2023 11:45-0400Systolic blood gdeompov171 mm[Hg] Suhasraquel Mayoadan Other [employer] Other 02-13-2023 11:30-0500Body ywfdpc334.48 cmSuhas Garrett Other [employer] Other 02-13-2023 11:30-0500Body mass index (BMI) [Ratio] 26.85 kg/c6IkhikSuhas Garrett Other [employer] Other 02-13-2023 11:30-0500Body .59 kgCarterraquel Garrett Other [employer] Other 02-13-2023 11:30-0500Diastolic blood mm[Hg] Suhas Ugo Other [employer] Other 02-13-2023 11:30-0500Respiratory rate16 /minBryraquel Garrett Other [employer] Other 02-13-2023 11:30-0508KoC3% (BldA) [Mass fraction]98 % Suhas Garrett Other [employer] Other 02-13-2023 11:30-0500Systolic blood ikvopidq039 mm[Hg] Suhas Garrett Other [employer] Other 11-09-2022 11:45-0500Body fothja994.48 cmCarterraquel Garrett Other [employer] Other 11-09-2022 11:45-0500Body mass index (BMI) [Ratio] 26.88 kg/k5Jpqfc Kuns Other [employer] Other 11-09-2022 11:45-0500Body .68 kgCarterraquel Garrett Other [employer]Ham[employer] Other 11-09-2022 11:45-0500Diastolic blood mfhutjrq51 mm[Hg] Suhas Ugo Other [employer] Other 11-09-2022 11:45-0500Respiratory rate16 /minSuhas Garrett Other [employer] Other 11-09-2022 11:45-6583VuK2% (BldA) [Mass fraction]99 % Suhas Garrett Other [employer] Other 11-09-2022 11:45-0500Systolic blood mfxxcluu636 mm[Hg] Suhas Garrett Other [employer] Other 09-16-2022 10:15-0400Body fognjj087.48 cmSuhas Garrett Other [employer] Other 09-16-2022 10:15-0400Body mass index (BMI) [Ratio] 27.07 kg/o4Mxxmp Kunadan Other [employer] Other 09-16-2022 10:15-0400Body hflvat03.13 kgCarterraquel Garrett Other [employer] Other 09-16-2022 10:15-0400Diastolic blood liihhcnw00 mm[Hg] Suhas Garrett Other [employer] Other 09-16-2022 10:15-0400Respiratory rate16 /minSuhas Garrett Other [employer] Other 09-16-2022 10:15-7514DpN3% (BldA) [Mass fraction]97 % Suhas Garrett Other [employer] Other 09-16-2022 10:15-0400Systolic blood gdyhfyth025 mm[Hg] Suhas Garrett Other [employer] Other 09-15-2022 10:45-557847 1Bprimo Garrett Work Phone: [phone]-[place]xiwlJeff [place] [address] Work Phone: Comment on above:[id number] 15:45-0400Body crtbai677.48 cmSuhas Garrett Other [employer] Other 09-08-2022 15:45-0400Body mass index (BMI) [Ratio]26.7 kg/x8VrgntSuhas Garrett Other [employer] Other 09-08-2022 15:45-0400Body qgjvre84.23 kgSuhas Garrett Other [employer] Other 09-08-2022 15:45-0400Diastolic blood ptfmyyze98 mm[Hg] Suhas Garrett Other [employer] Other 09-08-2022 15:45-0400Respiratory rate16 /minSuhas Garrett Other [employer] Other 09-08-2022 15:45-7755MjT7% (BldA) [Mass fraction]96 % Suhas Garrett Other [employer] Other 09-08-2022 15:45-0400Systolic blood cjyinare751 mm[Hg] Suhas Garrett Other [employer] Other 07-20-2022 11:04-0400Body tocmnu052.48 cmSuhas Garrett Work Phone: [phone]-Uwmih [facility] 250 DO Work Phone: 1(828) [phone] 11:04-0400Body mass index (BMI) [Ratio] 26.16 kg/p2JizjsSuhas Garrett Work Phone: mp243-5606NJ-Wgfiw [facility] 250 DO Work Phone: 1(198) 302-989907-20-2022 11:04-0400Body surface area Derived from formula1.66 w6ElsttSuhas Garrett Work Phone: [phone]-Ntajr [facility] [address] DO Work Phone: 1(954) 570-256707-20-2022 11:04-0400Body twzipx71.86 kgSuhas Garrett Work Phone: mp314-3745DG-Pjbjh [facility] 250 DO Work Phone: 1(206) 229-365107-20-2022 11:04-0400Diastolic blood evjlqbba53 mm[Hg] Suhas Garrett Work Phone: mp152-5089ID-Yyqjp [facility] [address] DO Work Phone: 1(496) 472-115707-20-2022 11:04-0400Heart rate56 /minSuhas Garrett Work Phone: mp462-1849YF-Mdcyv [facility] [address] DO Work Phone: 1(200) 659-842907-20-2022 11:04-0400Systolic blood mm[Hg] Suhas Garrett Work Phone: mp951-2014VN-Mypjs [facility] [address] DO Work Phone: 1(459) 340-837207-20-2022 11:00-0400Diastolic blood ekzqbetn46 mm[Hg] Suhas Garrett Work Phone: 1(823) 357-9706717-4575NE-Gegbn [facility] 250 DO Work Phone: 1(788) 467-659607-20-2022 11:00-0400Systolic blood uhvzwzvy713 mm[Hg] Suhas Garrett Work Phone: 1(903) [phone]-Xjyjy [facility] 250 DO Work Phone: 1(246) 595-248407-07-2022 11:39-0400Diastolic blood wenwwomt26 mm[Hg] Suhas Garrett Work Phone: 1(143)[address] [place] [address] Work Phone: 1(750) 904-749607-07-2022 11:39-0400Systolic blood pcioaznd482 mm[Hg] Suhas Garrett Work Phone: 1(205)[address] [place] [address] Work Phone: 1(654) 741-904707-07-2022 11:22-0400Diastolic blood ktmetjgz15 mm[Hg] Suhas Garrett Work Phone: 1(719)[address] [place] [address] Work Phone: 1(941) 552-165507-07-2022 11:22-0400Systolic blood ruuqutop496 mm[Hg] Suhas Garrett Work Phone: 1(481)[address] [place] [address] Work Phone: 1(549) 218-623907-07-2022 11:17-0400Body ldehiq906.48 cmSuhas Garrett Work Phone: 1(397)[address] [place] [address] Work Phone: [phone]113 11:17-0400Body mass index (BMI) [Ratio] 26.52 kg/w8QuqlnSuhas Garrett Work Phone: 1(145)[facility]60[facility] Work Phone: [phone]6-1728 11:17-0400Body surface area Derived from formula1.67 o7EyylbSuhas Garrett Work Phone: 1(827)[address] [place] [address] Work Phone: 1(358) 342-469007-07-2022 11:17-0400Body eccydt55.77 kgSuhas Garrett Work Phone: 1(419)[address] [place] [address] Work Phone: 1(918) 514-787907-07-2022 11:17-0400Diastolic blood dabheenc19 mm[Hg] Suhas Garrett Work Phone: [facility] Work Phone: 1(605) 101-318507-07-2022 11:17-0400Heart rate60 /minSuhas Garrett Work Phone: [facility] Work Phone: 1(542) 820-548907-07-2022 11:17-0400Systolic blood mlcyamon217 mm[Hg] Suhas Garrett Work Phone: [facility] Work Phone: 1(392) 630-381904-25-2022 13:30-0400Body zgbaqe889.48 cmSuhas Garrett Other [employer] Other 04-25-2022 13:30-0400Body mass index (BMI) [Ratio] 26.34 kg/b3WmjyaSuhas Garrett Other [employer] Other 04-25-2022 13:30-0400Body pokocf48.32 kgSuhas Garrett Other [employer] Other 04-25-2022 13:30-0400Diastolic blood hulzgbpd85 mm[Hg] Suhas Garrett Other [employer] Other 04-25-2022 13:30-0400Respiratory rate18 /minSuhas Garrett Other [employer] Other 04-25-2022 13:30-5825UlA9% (BldA) [Mass fraction]99 % Suhas Garrett Other [employer] Other 04-25-2022 13:30-0400Systolic blood aaszuejq477 mm[Hg] Suhas Garrett Other [employer] Other 02-24-2022 13:30-0500Body keqhcl193.48 cmCarterraquel Garrett Other [employer] Other 02-24-2022 13:30-0500Body mass index (BMI) [Ratio] 26.52 kg/u8Nhpvj Kunadan Other [employer] Other 02-24-2022 13:30-0500Body .77 kgCarterraquel Garrett Other [employer] Other 02-24-2022 13:30-0500Diastolic blood xmluhara92 mm[Hg] Suhas Garrett Other [employer] Other 02-24-2022 13:30-0500Respiratory rate16 /minSuhas Garrett Other [employer] Other 02-24-2022 13:30-2894SsV9% (BldA) [Mass fraction]99 % Suhas Garrett Other [employer] Other 02-24-2022 13:30-0500Systolic blood ucmvxguq344 mm[Hg] Suhas Ugo Other [employer] Other 11-18-2021 13:30-0500Body gthzcu034.48 cmSuhas Garrett Other [employer] Other 11-18-2021 13:30-0500Body mass index (BMI) [Ratio] 25.97 kg/b4WxiydSuhas Garrett Other [employer] Other 11-18-2021 13:30-0500Body .41 kgSuhas Garrett Other [employer] Other 11-18-2021 13:30-0500Diastolic blood ouflqkks34 mm[Hg] Suhas Garrett Other [employer] Other 11-18-2021 13:30-0500Respiratory rate17 /minSuhas Garrett Other [employer] Other 11-18-2021 13:30-6902LqQ3% (BldA) [Mass fraction]98 % Suhas Garrett Other [email or web address] Other 11-18-2021 13:30-0500Systolic blood uqxmnfml023 mm[Hg] Suhas Garrett Other [employer] Other Encounters Encounter DateEncounter [facility] ProviderFacilityStart: 02-14-2025 End: 15-82-6467eqijymicroPyvhwsuJorge Weston MDFacility:[facility] [place] Start: 01-14-2025 End: 71-72-7176Jeotur outpatient visit 25 minutesShy Wolf MD Work Phone: [facility] HospitalComment on above:Nonrheumatic aortic valve stenosis (Primary Dx); 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; Hyperlipidemia, unspecified hyperlipidemia type; PMR (polymyalgia rheumatica) (Multi); Hypothyroidism, unspecified type; BMI 27.0-27.9,adult; Never smoked any substance; OverweightStart: 01-14-2025 End: 16-72-2329rdxwqzvdfqPPANLQ M IBRTexas Health [facility] AmbulatoryStart: 12-21-2024 End: 38-95-5569Tlqwrbmrfm hospital visit by Julia Baker Echo[facility]asc [facility] 2[facility] HospitalComment on above:Aortic valve stenosis, etiology of cardiac valve disease unspecifiedStart: 12-21-2024 End: 90-00-2552tnyoomiojxCPPJBFMercy Health Perrysburg Hospitaltart: 12-07-2024 End: 32-39-4722Khnhsk outpatient visit 15 Silkemayo Gibbs [place] BURGER Work Phone: uh [facility] ClevelandComment on above: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 (Primary Dx); BMI 26.0-26.9,adultStart: 12-07-2024 End: 66-76-0088dcmzofxnyxIIPPJCone Health [facility] AmbulatoryStart: 10-25-2024 End: 26-18-5500yjxmbythtoLkcrqrc Vytautas Giedraitis MDFacility:[facility] [place] Start: 09-13-2024 End: 18-85-3904pwhrbahfznFudvshq Vytautas Giedraitis MDFacility:[facility] [place] Start: 07-28-2024 End: 89-66-4946zrjnknlwtqFmrwh UgoFacility:[facility] Start: 05-25-2024 End: 35-37-1312ghoqtzfejfHuzje KunsFalucas county health center:[facility] Start: 04-16-2024 End: 82-15-7361Ctauup outpatient visit 25 minutesShy Wolf MD Work Phone: uh [facility] ClevelandComment on above:Aortic valve stenosis, etiology of cardiac valve disease unspecified (Primary Dx); Essential hypertension; Hyperlipidemia, unspecified hyperlipidemia type; Never smoked any substance; BMI 26.0-26.9,adult; Hypothyroidism, unspecified typeStart: 04-16-2024 End: 68-55-9929agyihwuonwPSIQFU [facility] AmbulatoryStart: 02-11-2024 End: 12-91-0412Vknfcvugpk hospital visit by Julia Baker Echo[facility]Vasc [facility] 2[facility]Commun[facility] on above:Nonrheumatic aortic valve stenosis; Aortic valve stenosis, etiology of cardiac valve disease unspecifiedStart: 02-11-2024 End: 65-13-5923gmagnjelkrVAQIPY M [facility] Hospitaltart: 10-14-2023 End: 35-30-8056obtflglplqHnddo KunsFacility:[facility] Start: 09-03-2023 End: 34-01-2062yurxnayjboEnpwi GaelsFacility:[facility] Start: 07-18-2023 End: 26-11-1055tjiaekgmsrMmmdl Gaels Other [employer] Other Start: 80-09-0277Yiueqxfqt encounterBryraqule MayosFPG [facility] [place]Start: 07-15-2023 End: 92-87-8694feyannqdhqDrczv Kuns Other [employer] Other Start: 86-36-6771Gyujaeaie encounterBryraquel MayosFPG [facility] [place]aliaStart: 07-10-2023 End: 60-00-9405fppbskqmleZwppz Kuns Other [employer] Other Start: 55-37-9030Egvuoadmu encounterBryraquel MayosFPG [facility] [place]aliaStart: 07-07-2023 End: 30-57-8191qluydjupvkZtybi Kuns Other [employer] Other Start: 90-73-8119Zuscsbugr encounterBryraquel MayosFPG [facility] [place]aliaStart: 07-04-2023 End: 11-58-2058cznehvgzamXuekb Kuns Other [employer] Other Start: 42-40-1916Etagen outpatient visit 15 minutes Suhas MayosFPG [facility] [place]aliaStart: 06-19-2023 End: 58-99-5763lugzoudsbtBnwyb Kuns Other [employer] Other Start: 65-08-7727Hiqeqjwuv encounterSuhas MayoCory Family Medicine CastaliaStart: 06-19-2023 End: 44-22-5082Kkwzer outpatient visit 25 minutesShy Wolf MD Work Phone: [facility]villeComment on above:Aortic valve stenosis, etiology of cardiac valve disease unspecified; Essential hypertension; Hyperlipidemia, unspecified hyperlipidemia type; Never smoked any substanceStart: 05-30-2023 End: 41-95-8046yhtjbtnhgmXslop Kuns Other [employer] Other Start: 37-33-1270Hasdnb outpatient visit 25 minutes Suhas MayoadanLEYDI [facility] [place]Start: 05-28-2023 End: 41-93-0467fksnwsidxcJpbyf Kuns Other [email or web address] Other Start: 42-26-4226Qjmnsbrdv encounterSuhas MayoDereckShravan [facility] [place]aliaStart: 04-23-2023 End: 43-86-6792brzwtlnyrqPwkel Kuns Other [employer] Other Start: 84-37-5121Kcgngpixw encounterSuhas MayoDereckShravan [facility] [place]aliaStart: 04-18-2023 End: 00-67-0416zigtsubiuqXvace Kuns Other [employer] Other Start: 94-56-9633Bhhyzwlxd encounterSuhas MayoadanFPG [facility] [place]aliaStart: 85-06-9526Ctgzr UpdateSuhas Garrett Work Phone: [phone]-[facility]flweLakeview [facility] 250 DO Work Phone: Start: 02-28-2023 End: 53-43-7097wpdfrtxepfNadom Kuns Other [employer] Other Start: 22-84-3044Omjatn outpatient visit 15 minutes Suhas GaelCory Family Medicine CastaliaStart: 32-15-2584onejwsyrngKv. Suhas GarrettWashington Rural Health Collaborative & Northwest [facility] Networkity:9844Start: 01-27-2023 End: 01-95-1026kanwttmnhuFcgqb Kuns Other [employer] Other Start: 14-33-1879Vrylpxqvg encounterBryraquel Sommers [facility] [place]aliaStart: 93-77-2957Zsbbwx outpatient visit 25 minutesSuhas Garrett Work Phone: [phone]-BopapPatrick [place] [address] DO Work Phone: Start: 65-14-6154szwgshearnLx. Shy Agosto [facility] Facility:[id number]: 12-06-2022 End: 25-01-2971yxvdsblaeyJausd Kuns Other [employer] Other Start: 86-06-2473Jsidtu outpatient visit 15 minutes Suhas GaelCory Family [facility] [place]aliaStart: 09-20-2022 End: 20-84-6230vqnpkqwdvgEqucq Kuns Other [employer] Other Start: 47-14-9562Qbqokp outpatient visit 15 minutes Suhas GaelCory [facility] [place]aliaStart: 08-14-2022 End: 48-66-2623yvtiipysfiTjelc Kuns Other [employer] Other Start: 49-42-4421Camuyajog encounterBryraquel GaelCory Family Medicine [place]aliaStart: 07-22-2022 End: 08-23-8550xecdejpuxyWmnjh Kuns Other [employer] Other Start: 06-14-7904Cbhglq outpatient visit 15 minutes Suhas Sommers [facility] [place]aliaStart: 04-17-2022 End: 72-96-6489thpazqjgbsWtgoo Kuns Other [employer] Other Start: 49-18-3216Pdncmk outpatient visit 15 minutes Suhas ManciniG Family Medicine [place]Start: 04-10-2022 End: 40-49-4217ndebiwklziJrkcl Kuns Other [employer] Other Start: 62-14-2650Telvgxudw encounterBryraquel GarrettFPG [facility] [place]aliaStart: 04-03-2022 End: 91-94-2868upppblxhuzBbcra Kuns Other [employer] Other Start: 57-39-0138Aictrryvx encounterBryraquel GarrettFPG [facility] [place]aliaStart: 04-02-2022 End: 40-06-4151xmsoudvjhkSizct Kuns Other [facility] [employer] Other Start: 42-70-7160Qqkpvjmfh encounterBryraquel GarrettFPG [facility] [place]Start: 02-26-2022 End: 67-65-3362lolspjadvwVyize Kuns Other [facility] [employer] Other Start: 53-72-1831Hedgosmup encounterBryraquel GarrettFPG [facility] [place]aliaStart: 02-25-2022 End: 05-46-0631jurlgrdgwrNryou Kuns Other [employer] Other Start: 25-67-4995Wepuyubqy encounterBryraquel MayosFPG [facility] [place]aliaStart: 02-22-2022 End: 55-48-7759vlaqvrlektCwnse Kuns Other [email or web address] Other Start: 76-03-0283Wruiih outpatient visit 25 minutes Suhas MayoadanLEYDI Family Medicine [place]aliaStart: 71-35-0911Piruaaf encounter procedureSuhas Garrett Work Phone: [phone]-EntiuLakewood Health Center [address] [place] Work Phone: Start: 02-20-2022 End: 08-72-7609zqocsjeqrbKKBUXND M MANONFacility:S5Zofag: 02-14-2022 End: 43-26-8885gcukaidkrlCpmwz Kuns Other [email or web address] Other Start: 78-24-9882Mayzem outpatient visit 25 minutes Suhas Sommers [facility] [place]Start: 01-11-2022 End: 73-91-3567luvjugrjzdCeyci Kuns Other [email or web address] Other Start: 30-12-1592Yjaxtdv evaluation of patient and reportBryraquel MayoadanLEYDI Family Medicine [place]aliaStart: 86-20-8602Kwynmxsqa encounter Suhas GaeladanLEYDI Family Medicine CastaliaStart: 70-86-3119Kdnupp outpatient visit 10 minutesSuhas Garrett Work Phone: [phone]-LmuuvLakewood Health Center 250 DO Work Phone: Start: 86-64-9774fxdaujvsrnCm. Bryan Patrick Kuns Facility:[id number]: 12-20-2021 End: 53-22-5904ptagackrmtRhtfm Kuns Other [employer] Other Start: 06-10-4572Khzgvqntc encounterSuhas MayoadanLEYDI Family Medicine [place]aliaStart: 14-20-3469Dwxcjh outpatient visit 25 minutesSuhas Garrett Work Phone: [facility] Work Phone: Start: 11-02-2021 End: 64-98-9132frhrqsrkbuZuejt Kuns Other [employer] Other Start: 51-95-9453Vrfdgyeus encounterBryraquel GarrettFPG [facility] [place]aliaStart: 10-01-2021 End: 87-59-4343aizgvprmdkBlmfo Kuns Other [employer] Other Start: 07-52-2074Qirmdz outpatient visit 15 minutes Suhas GarrettFPG [facility] [place]aliaStart: 09-10-2021 End: 59-65-1977twepavbgmmEwelp Kuns Other [employer] Other start: 21-98-4182Gexnapzcx encounterBryraquel GarrettFPG [facility] [place]aliaStart: 08-20-2021 End: 17-97-8131niiyowjxbhBlcnr Kuns Other [employer] Other Start: 42-79-6427Mgyyrfacr encounterBryraquel GarrettFPG [facility] [place]aliaStart: 08-02-2021 End: 22-57-4932wtiihnnltuBymlz Kuns Other [employer] Other Start: 29-11-3216Pdkcuz outpatient visit 15 minutes Suhas GarrettFPG [facility] [place]aliaStart: 07-25-2021 End: 82-69-8463mtrlgzrzmuKopkz Kuns Other [employer] Other Start: 81-65-0383Savjwpmwd encounterBryraquel GarrettFPG [facility] [place]aliaStart: 05-08-2021 End: 58-28-1258aibbhyeusfEzgyz Kuns Other [employer] Other start: 46-80-3802Anyxqkvxl encounterCarterraquel Matthieu [facility] [place]aliaStart: 04-26-2021 End: 94-84-6378zssmscyhjlYacwm Kuns Other [facility] [employer] Other Start: 06-73-7338Byftyn outpatient visit 25 minutes Suhas Sommers [facility] [place] Procedures DateProcedureProcedure Detail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Start: 81-88-2760Qdsc [facility] r-t 2d w/wom-mode compl spec&colr Clayton Wolf MD Work Phone: Start: 75-86-1857FkfftvlebnyylkdfOsaks P Kuns Work Phone: Start: 24-26-3003LclwmoxlnporelwtDengo P Kuns Work Phone: AppendectomyBryan P Kuns Work Phone: CholecystectomyBryan P Kuns Work Phone: Operation on ovaryBryan P Kuns Work Phone: ThyroidectomyBryan P Kuns Work Phone: Total colonoscopyBryan P Kuns Work Phone: Plan of Treatment DateCare ActivityDetailAuthorStart: 28-95-8241RMeK/Tdap/Td Vaccines (2 - Td or Tdap)DTaP/Tdap/Td Vaccines (2 - Td or Tdap)[facility] Start: 01-26-2026 End: 62-55-1829Dktquwm encounter wbfsoovcs37/20/2026 11:00 AM EDT Office Visit [facility] [address] [facility] [address] [place] [address] Shy Wolf MD [address] [facility] [address], [address] [place] [address] [facility]villeStart: 33-86-3791HuwxbatlzqmvgmypXlxrsurftpwwlj [facility]: 12-20-2025 End: 75-97-4359Jolobgw encounter dapblunrp49/14/2026 10:45 AM EDT Appointment [place] [address] [facility] [address] [place] [address] [facility]: [facility] End: 33-48-1239JI Heart TransthoracicTransthoracic Echo Complete Echocardiography Routine Nonrheumatic aortic valve stenosis Expected: 12/14/2025 (Approximate), Expires: 01/14/2027[facility] Service Area Work Phone: Comment on above:Expected: 12/14/2025 (Approximate), Expires: 01/14/2027Start: 03-01-2026Medicare Annual Wellness VisitMedicare Annual Wellness Visit (AWV)[facility]: 02-10-2025 EchocardiographyEchocardiogramUnCenterville: 02-07-2025 Influenza vaccinationInfluenza Vaccine (#1)[facility] Start: 01-14-2025 End: 54-30-2558LD Heart TransthoracicTransthoracic Echo Complete Echocardiography Routine Aortic valve stenosis, etiology of cardiac valve disease unspecified Expected: 01/14/2025 (Approximate), Expires: 04/16/2026[facility] Service Area Work Phone: Comment on above:Expected: 01/14/2025 (Approximate), Expires: 04/16/2026Start: 01-14-2025 End: 35-69-8952Uaeyjxg encounter gfwqzxaqx65/08/2025 11:00 AM EDT Office Visit [address] [place] [address] Shy Wolf MD [address] [facility] [address], [address] [place] [address] [facility]: 12-21-2024 End: 49-28-6126Reaowuq encounter jqtnygiwx81/15/2025 12:30 PM EDT Appointment [place] [address] [place] [address] [place] [address] [facility]: 41-48-4061SNMAB-19 Vaccine ( season)COVID-19 Vaccine ( season)[facility]: 03-16-2024 End: 26-50-8333Vktszst encounter uubvpnoeu92/08/2024 11:20 AM EDT Office Visit [address] [phone] Shy Wolf MD [address] [facility] [address], [address] [address] [facility]: 88-38-2845Ppfqvclnx for osteoporosisBone Density [facility]: 02-11-2024 End: 61-92-6499Xivafqu encounter epnpfflpg06/04/2024 12:30 PM EDT Appointment [address] [address] [facility]: 41-39-7335ZFFTO-19 Vaccine ( season)COVID-19 Vaccine ( season)[facility]: 02-08-2024 Influenza vaccinationInfluenza Vaccine (#1)[facility] Start: 02-08-2024 End: 29-28-9132IK Heart TransthoracicTransthoracic Echo (TTE) Complete Echocardiography Routine Aortic valve stenosis, etiology of cardiac valve disease unspecified Expected: 02/08/2024 (Approximate), Expires: 06/19/2025[facility] Service Area Work Phone: Comment on above:Expected: 02/08/2024 (Approximate), Expires: 06/19/2025Start: 53-26-6435WPS, Provider: Shy Wolf, Status: Pen, Time: 11:00 AMFUV, Provider: Shy Wolf, Status: Pen, Time: 11:00 [place] [address] DO Work Phone: Start: 64-91-9281ZTUUK-19 Vaccine (5 - Moderna series) COVID-19 Vaccine (5 - Moderna series)[facility]: 08-35-8168EVKN, Provider: SAMUEL HHVI ULTRASOUND 01,[id number], Status: Pen, Time: 10:45 AMECHO, Provider: SAMUEL YII ULTRASOUND 01,[id number], Status: Pen, Time: 10:45 [facility]uel 250 DO Work Phone: Start: 32-73-1037RIN, Provider: Shy Wolf, Status: Pen, Time: 11:20 AMFUV, Provider: Shy Wolf, Status: Pen, Time: 11:20 [facility] Work Phone: Start: 92-59-1974EAOUPQT, Provider: SAMUEL YII ULTRASOUND 01,[id number], Status: Pen, Time: 12:30 PMCAROTID, Provider: SAMUEL HHVI ULTRASOUND 01,[id number], Status: Pen, Time: 12:30 PMC[facility] Work Phone: start: 23-32-9436NHHS, Provider: SAMUEL HHVI ULTRASOUND 01,[id number], Status: Pen, Time: 10:45 AMECHO, Provider: SAMUEL HHVI ULTRASOUND 01,[id number], Status: Pen, Time: 10:45 [facility] Work Phone: start: 50-73-2709WWPBOLF, Provider: SAMUEL HHVI ULTRASOUND 01,[id number], Status: Pen, Time: 2:30 PMCAROTID, Provider: SAMUEL HHVI ULTRASOUND 01,[id number], Status: Pen, Time: 2:30 PMC[facility] Work Phone: start: 54-40-1933ADRJ, Provider: SAMUEL HHVI ULTRASOUND 01,[id number], Status: Pen, Time: 1:30 PMECHO, Provider: SAMUEL HHVI ULTRASOUND 01,[id number], Status: Pen, Time: 1:30 PMC[facility] Work Phone: Start: 71-24-2152IEDJWPSY, Provider: MAGDA DANIEL LUMBER MARKER 1,[id number], Status: Pen, Time: 11:00 AMNURSEVST, Provider: MAGDA DANIEL LUMBER MARKER 1,[id number], Status: Pen, Time: 11:00 AMC[facility] Work Phone: Start: 23-41-5272Srlyivrgi B Vaccines (1 of 3 - Risk 3-dose series)Hepatitis B Vaccines (1 of 3 - Risk 3-dose series)[facility]: 04-21-4682Kseqvdhzs A Vaccines (1 of 2 - Risk 2- dose series)Hepatitis A Vaccines (1 of 2 - Risk 2-dose series)[facility]: 76-28-8169Qmcquzijkp measurementCreatinine Level [facility]: 40-20-0129Yfpjo panelLipid Panel [facility]: 03-04-1937Medicare Annual Wellness Visit Medicare Annual Wellness Visit (AWV)[facility]: 11-83-7349Eqzlgjdvu measurementPotOklahoma Spine [facility] – [place] Start: 01-39-5134Olwlemb stimulating hormone measurementTSSt. Mary's Regional Medical Center – EnidECG 12 LeadECG 12 Lead ECG Routine 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 Ordered: 12/08/2024[facility] Area Work Phone: Comment on above:Ordered: 12/08/2024 End: 65-11-4601WB [facility] Tr[facility]horacicNY[facility] Work Phone: Comment on above:Once for 1 Occurrences starting 02/11/2024 until 02/11/2024 Immunizations Immunization DateImmunizationNotesCare EbcwkfgoDmombahy91-47-5045Rpcrhkfuvvof conjugate vaccine, 20-valent (PREVNAR 20)Shy Wolf MD Work Phone: [facility] Work Phone: [phone] COVID-19 vaccine, 12 years and older (50mcg/0.5mL)(Spikevax)Shy Wolf MD Work Phone: [facility] Work Phone: [phone] trivalent influenza vaccine, adjuvanted, preservative freeShy Wolf MD Work Phone: [facility] Work Phone: [phone] virus vaccine, unspecified formulationReuben Burns CLAIMS PROCESSOR-WINDOWS DESKTOP ENGINEER Work Phone: [facility] Work Phone: [phone] SYNCYTIAL VIRUS (RSV), ELIGIBLE PTS, 0.5 ML (ABRYSVO)Shy Wolf MD Work Phone: [facility] Work Phone: [phone], Seasonal, Quadrivalent, AdjuvantedShy Wolf MD Work Phone: [facility] Work Phone: [phone] COVID-19 vaccine, 12 years and older (50mcg/0.5mL)(Spikevax)Shy Wolf MD Work Phone: [facility] Work Phone: [phone] virus vaccine, unspecified formulationEly 2[facility] Work Phone: [phone] COVID-19 Bivalent 50 MCG/0.5ML Intramuscular SuspensionSuhas Garrett Work Phone: mp-[facility] [address] DO Work Phone: [phone] Quadrivalent 0.5 ML Intramuscular Prefilled SyringeBryraquel P Ugo Work Phone: [phone]-OkqclLakewood [facility] 250 DO Work Phone: [phone], seasonal, injectableBryan Kuns Other [facility] [employer] Other [id number] COVID-19 Vaccine 100 MCG/0.5ML Intramuscular SuspensionBryan P Kuns Work Phone: [facility] Work Phone: [phone]ifx COVID-19 Vaccine 100 MCG/0.5ML Intramuscular SuspensionBryan P Kuns Work Phone: [facility] Work Phone: [phone], seasonal, injectableBryan Kuns Other [employer] Other [id number] COVID-19 Vaccine 100 MCG/0.5ML Intramuscular SuspensionBryan P Kuns Work Phone: [facility] Work Phone: [phone] COVID-19 Vaccine 100 MCG/0.5ML Intramuscular SuspensionBryan P Kuns Work Phone: [facility] Work Phone: [phone] polysaccharide vaccine, 23 valentBryan Gaels Other [facility] [employer] Other [id number] trivalent influenza vaccine, adjuvanted, preservative freeBryan P Kuns Work Phone: [facility] Work Phone: [phone]dscz, seasonal, injectableBryan Kuns Other [employer] Other [id number] virus vaccine, unspecified formulationBryan P Kuns Work Phone: [facility] Work Phone: [phone]yrxassr, seasonal, injectableBryan Kuns Other [employer] Other 11-650564-12-1397pppyzx vaccine recombinantBryan Kuns Other [employer] Other 10-490772-04-1351idvfszqsn, high dose seasonal, preservative-freeBryan P Kuns Work Phone: [facility] Work Phone: [phone], seasonal, injectableBryan Kuns Other [employer] Other 08380119-36-5146txrhgc vaccine recombinantBryan Kuns Other [employer] Other 12055703-10-8732jujfmzm toxoid, reduced diphtheria toxoid, and acellular pertussis vaccine, adsorbedBryan Kuns Other [employer] Other 10910737-01-4789Pjcmotni trivalent influenza vaccine, adjuvanted, preservative freeShy Wolf MD Work Phone: [facility] Work Phone: [phone]bdweb virus vaccine, unspecified formulationBryan P Kuns Work Phone: [facility] Work Phone: [phone] virus vaccine, unspecified formulationBryan P Kuns Work Phone: [facility] Work Phone: [phone]ygvig trivalent influenza vaccine, adjuvanted, preservative freeBryan P Kuns Work Phone: [facility] Work Phone: [phone]ynhjjiv conjugate vaccine, 13 valent Shy Wolf MD Work Phone: [facility] Work Phone: [phone]xcaiulnmc conjugate vaccine, 13 valent Suhas Gaels Other [facility] [employer] Other 10-089109-74-0299Zvgdluua trivalent influenza vaccine, adjuvanted, preservative freeCarteran P Gaels Work Phone: [facility] Work Phone: [phone]amiioudt virus vaccine, unspecified formulationBryan P Kuns Work Phone: [facility] Work Phone: [phone]vqskhoibwze conjugate vaccine, 13 valent Suhsa Dalton Garrett Work Phone: [facility] Work Phone: [phone], injectable, quadrivalent, contains preservativeBryan P Kuns Work Phone: [facility] Work Phone: [phone]pbrkynut virus vaccine, unspecified formulationBryan P Kuns Work Phone: [facility] Work Phone: [phone]adivfdvx, seasonal, injectable, preservative freeCarteran P Kuns Work Phone: [facility] Work Phone: [phone]xwyksiji virus vaccine, whole virusCarteran P Gaels Work Phone: [facility] Work Phone: [phone]ycoi, seasonal, injectableBryan P Kuns Work Phone: [facility] Work Phone: [phone] virus vaccine, unspecified formulationCarteran P Kuns Work Phone: [facility] Work Phone: [phone]dref, injectable, quadrivalent, contains preservativeBryan Kuns Other [employer] Other 01004824-49-6704xqdwuvgwi virus vaccine, unspecified formulationBryan P Kuns Work Phone: [facility] Work Phone: [phone]ea virus vaccine, unspecified formulationBryan P Kuns Work Phone: [facility] Work Phone: [phone]grlu virus vaccine, unspecified formulationBryan P Kuns Work Phone: [facility] Work Phone: [phone] usfwkyyax-B6T9-39, preservative-free, injectableBryan P Kuns Work Phone: [facility] Work Phone: [phone] virus vaccineBryan P Kuns Work Phone: [facility] Work Phone: [phone] polysaccharide vaccine, 23 valentBryan P Kuns Work Phone: [facility] Work Phone: Payers DatePayer CategoryPayerPolicy [id number] Care (Private)[facility] .[id number] Private Health [id number]1-2063 [id number]4-5534Fencgqf51-54-4814 [id number] 2..3.232770.10860357-76-6211Vyjmhpx Health Insurance [id number] 2..8.67225[id number] 2..1.640545.3.57[id number] 2..1.697136.3.57[id number] 2..1.769550.3.57[id number] 2..1.220224.3.57[id number] 2..1.174537.3.57[id number] 2.0.1.404841.3.57[id number] 2.0.1.481420.3.57[id number] 2.0.1.836894.3.57[id number] 2.0.1.831675.3.57[id number] 2.16.840.1.564493.3.57[id number] 2.16.840.1.169943.3.57[id number] 2.16.840.1.7[id number] 2.16.840.1.106060.3.579.2.531 [id number] 2.16.840.1.6[id number] 2.16.840.1.8[id number] 2.16.840.1.044660.3.579.2.531 Social History DateTypeDetailFacilityUnknown if ever smokedGrace Hospital [employer] Other Start: 06-19-2023 End: 66-30-7887Hkj Assigned At BirthN[facility] [employer] Other Start: 06-19-2023 End: 49-48-3967Kafuogsr useCaffeine useCleveland Clinic Mentor Hospital Work Phone: Start: 85-64-8205Oybsjel smoking status NHISNever smoked tobaccoUnLouis Stokes [facility] Work Phone: Start: 22-49-1880Gjoujjj use and exposureSmokeless tobacco non-userUnLouis Stokes [facility] Center Work Phone: Start: 75-20-6067Qup Assigned At BirthNot on file [facility] Work Phone: Start: 06-09-2023 End: 80-65-7174Ggzguzau to SARS-CoV-2 (event)Not sureUnLouis Stokes [facility] VA Medical CenterStart: 04-16-2024 End: 61-76-9628Kjxgftxcw beverage intakeCurrent drinker of alcohol (finding) [facility] Work Phone: Start: 27-12-8284IcmLvrxqrXavldrgicoLima City Hospital Clinical Notes 02-15-2015 to 01-14-2025 Note Date & MdgqDyggLodvmzqu69-01-1919 History of Present illness Narrative* Shy Wolf [...] exam, discussion and plan. documented in this encounterDetwiler [facility] Hospital Work Phone: [phone]) 762-371308-08-2025 Instructions* Patient Instructions* Richelle Frey LPN - [...] through Care Everywhere. * Heart Healthy Diet (Ukrainian) documented in [facility] encounterDet[facility] Work Phone: 1(936) 445-308507-01-2025 History of Present illness Narrative* Reuben Burns [...] in patient record. Reuben Burns MSN, JENNYFER, PMHNP-[facility] [place], [place] Please excuse any errors in grammar or translation related to this dictation. Voice recognition software was utilized to prepare this document. documented in this [facility] Work Phone: 1(769) 751-769507-01-2025 Instructions* Patient Instructions* JENNYFER Garsia - 12/07/2024 [...] Dr. Wolf as scheduled [facility] Work Phone: 1(339) 162-496007-01-2025 Miscellaneous Notes* Addendum Note - JENNYFER Garsia - 12/07/2024 3:00 PM EDTAddended by: REUBEN BURNS on: 12/08/2024 02:08 PM Modules accepted: Orders documented in this [facility]Un[facility] Work Phone: 1(661) 908-321607-01-2025 Note* Addendum Note - ARGELIA Garsia CNP - 12/07/2024 3:00 PM EDTAddended by: REUBEN BURNS on: 12/08/2024 02:08 PM Modules accepted: Orders [facility] Work Phone: 1(726) 131-364011-08-2024 History of Present illness Narrative* Shy Wolf [...] exam, discussion and plan. documented in this [facility] Work Phone: 1(760) 991-523111-08-2024 Instructions* Patient Instructions* Sherin Mendez LPN - [...] 9 month follow up documented in this [facility] Work Phone: 1(561) 645-227102-09-2024 Evaluation note* Encounter Date Diagnosis Assessment Notes Treatment Notes Treatment Clinical Notes Jul, PMR (polymyalgia rheumatica) (IC D-10 - M35.3) [employer] Other 02-06-2024 Evaluation note* Encounter Date Diagnosis Assessment Notes Treatment Notes Treatment Clinical Notes Jul, PMR (polymyalgia rheumatica) (IC D-10 - M35.3) [employer] Other 02-01-2024 Evaluation note* Encounter Date Diagnosis Assessment Notes Treatment Notes Treatment Clinical Notes Jul, Hypothyroidism (ICD-10 - E03.9) [employer] [facility] Other 01-29-2024 Evaluation note* Encounter Date Diagnosis Assessment Notes Treatment Notes Treatment Clinical Notes Jun, Hypothyroidism (ICD-10 - E03.9) Jun,Hyperthyroidism (ICD-10 - E05.90) [facility] Other 01-26-2024 Evaluation note* Encounter Date Diagnosis [...] medications in combination with eachother. Also discussed fdc steriod use in regards to her condition. [...] requires sooner she is welcome to call. [employer] [facility] Other 01-11-2024 Evaluation note* Encounter Date Diagnosis Assessment Notes Treatment Notes Treatment Clinical Notes Jun, PMR (polymyalgia rheumatica) ( D-10 - M35.3) [employer] Other 01-11-2024 History of Present illness Narrative* [...] being tapered gradually Shy Wolf MD, [facility] Review of Systems All other systems [...] of Shy Wolf MD. [facility] Work Phone: 1(279) 217-670401-11-2024 Instructions* Patient Instructions* Yevgeniy Cortez MA - [...] time of your visit. [facility] Work Phone: 1(264) 323-399512-22-2023 Evaluation note* Encounter Date Diagnosis Assessment Notes [...] recommend the patient get the RSV vaccine. [employer] [facility] Other 12-20-2023 Evaluation note* Encounter Date Diagnosis Assessment Notes Treatment Notes Treatment Clinical Notes May, Hypertension (ICD-10 - I10) May,Hypothyroidism (ICD-10 - E03.9) [employer] [facility] Other 11-10-2023 Evaluation note* Encounter Date Diagnosis Assessment Notes Treatment Notes Treatment Clinical Notes Apr, PMR (polymyalgia rheumatica) (IC D-10 - M35.3) [employer] [facility] Other 09-22-2023 Evaluation note* Encounter Date Diagnosis Assessment Notes Treatment Notes Treatment Clinical Notes Feb, PMR (polymyalgia rheumatica) (IC D-10 - M35.3) She was encouraged to take 2.5mg daily. Patient is agreeable. Feb,Hypertension (ICD-10 - I10) Blood pressure is satisfactory, she is to follow with cardiology as scheduled. [facility] [facility] Other 08-21-2023 Evaluation note* Encounter Date Diagnosis Assessment Notes Treatment Notes Treatment Clinical Notes Jan, Hypertension (ICD-10 - I10) [facility] [facility] Other 06-30-2023 Evaluation note* Encounter Date Diagnosis [...] very confident this is due [facility]. She will see Dr. Wolf in three weeks therefore was advised to make sure she discusses the swelling with him and see what he would like to do. Patient is agreeable. [facility] [facility] Other 04-14-2023 Evaluation note* Encounter Date Diagnosis [...] tablets daily. We will continue to monitor. [facility] Other 03-08-2023 Evaluation note* Encounter Date Diagnosis Assessment Notes Treatment Notes Treatment Clinical Notes Aug, PMR (polymyalgia rheumatica) (IC D-10 - M35.3) [employer] [facility] Other 02-13-2023 Evaluation note* Encounter Date Diagnosis [...] states she has an upcoming appointment with form raiser and she will discuss making medication changes at that time. [facility] Other 11-09-2022 Evaluation note* Encounter Date Diagnosis [...] she can cut Apr,Hyperlipidemia (ICD-10 - E78.5) [facility] [facility] Other 11-02-2022 Evaluation note* Encounter Date Diagnosis Assessment Notes Treatment Notes Treatment Clinical Notes Apr, PMR (polymyalgia rheumatica) (IC D-10 - M35.3) [facility] [facility] Other 10-26-2022 Evaluation note* Encounter Date Diagnosis Assessment Notes Treatment Notes Treatment Clinical Notes Mar, Lumbar back pain (ICD-10 - M54.5 0) [facility] [facility] Other 09-20-2022 Evaluation note* Encounter Date Diagnosis Assessment Notes Treatment Notes Treatment Clinical Notes Feb, Elevated liver function tests (I CD-10 - R79.89) [facility] [facility] Other 09-16-2022 Evaluation note* Encounter Date Diagnosis Assessment Notes Treatment Notes Treatment Clinical Notes Feb, Acute pain of left shoulder (ICD -10 - M25.512) [place] [facility] report reviewed from 02/20/22 . The [...] pain (ICD-10 - R10.13) The patient advised [place] could be causing her GI upset , [...] month [place] at her next office visit. [employer] Other 09-08-2022 Evaluation note* Encounter Date Diagnosis [...] (ICD-10 - M85.80) Noted on Lumbar x-ray. [employer] [facility] Other 08-05-2022 Evaluation note* Encounter Date Diagnosis Assessment Notes Treatment Notes Treatment Clinical Notes Jan, COVID-19 (ICD-10 - U07.1) [facility] [facility] Other 08-05-2022 Evaluation note* Encounter Date Diagnosis Assessment Notes Treatment Notes Treatment Clinical Notes Jan, Cough (ICD-10 - R05.9) In house covid test is positive. Treatment plan discussed in TE. [facility] Other 07-14-2022 Evaluation note* Encounter Date Diagnosis Assessment Notes Treatment Notes Treatment Clinical Notes Dec, PMR (polymyalgia rheumatica) (IC D-10 - M35.3) [facility] [facility] Other 05-27-2022 Evaluation note* Encounter Date Diagnosis Assessment Notes Treatment Notes Treatment Clinical Notes October, PMR (polymyalgia rheumatica) (IC D-10 - M35.3) [facility] [facility] Other 04-25-2022 Evaluation note* Encounter Date Diagnosis [...] The patient encourged to continue following with form raiser annually in December as scheduled. I did forward a copy of most current blood work results . [employer] [facility] Other 04-04-2022 Evaluation note* Encounter Date Diagnosis Assessment Notes Treatment Notes Treatment Clinical Notes Sep, PMR (polymyalgia rheumatica) (IC D-10 - M35.3) Sep,Hypertension (ICD-10 - I10) [facility] [facility] Other 02-24-2022 Evaluation note* Encounter Date Diagnosis [...] if needed. We will continue to montior. [facility] [facility] Other 02-16-2022 Evaluation note* Encounter Date Diagnosis Assessment Notes Treatment Notes Treatment Clinical Notes Jul, PMR (polymyalgia rheumatica) (IC D-10 - M35.3) [facility] [facility] Other 11-30-2021 Evaluation note* Encounter Date Diagnosis Assessment Notes Treatment Notes Treatment Clinical Notes Apr, PMR (polymyalgia rheumatica) (IC D-10 - M35.3) [employer] [facility] Other 11-18-2021 Evaluation note* Encounter Date Diagnosis [...] Apr,Hypothyroidism (ICD-10 - E03.9) Blood work ordered. [employer] Other [id number] History general Narrative - Reported* Type Description Date Medical History [facility] Ggjheoh0579, 02-15-15-mammogram-negativeMedical History 01/20122973-zckmrgktjoz-vkcald, repeat in 3 yrsMedical Mwweadv51/2017- colonoscopy- normalMedical Historyf/u with cardiology NOHCMedical HistoryECHO 09/2016Surgical HistoryAppendectomySurgical HistoryGallbladder RemovalSurgical HistoryOvarian Cyst RemovalSurgical HistoryCoccyx repairSurgical HistoryCataracts Bilateral EyesSurgical Historythyroidectomy Dr. Forbes10/14/2019Hospitalization History Childbirth h1Iwxjoyjtbuzlcza HistorySee Above [employer] Other Evaluation noteNo [email or web address] Other Evaluation note* Diagnosis Aortic valve stenosis, etiology of cardiac valve disease unspecified Essential hypertension Unspecified essential hypertension Hyperlipidemia, unspecified hyperlipidemia type Never smoked any substance documented in this encounter [facility] Work Phone: Evaluation note* Diagnosis Aortic valve stenosis, etiology of cardiac valve disease unspecified- Primary Essential hypertension Unspecified essential hypertension Hyperlipidemia, unspecified hyperlipidemia type Never smoked any substance BMI 26.0-26.9,adult Hypothyroidism, unspecified type documented in this encounter [facility] Work Phone: Evaluation note* Diagnosis Nonrheumatic aortic valve stenosis Aortic valve stenosis, etiology of cardiac valve disease unspecified documented in this encounter [facility] Work Phone: Evaluation note* Diagnosis 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- Primary BMI 26.0-26.9,adult documented in this encounter [facility] Work Phone: Evaluation note* Diagnosis Aortic valve stenosis, etiology of cardiac valve disease unspecified documented in this encounter [facility] Work Phone: Evaluation note* Diagnosis Nonrheumatic aortic valve stenosis- Primary 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 Hyperlipidemia, unspecified hyperlipidemia type PMR (polymyalgia rheumatica) (Multi) Polymyalgia rheumatica Hypothyroidism, unspecified type BMI 27.0-27.9,adult Never smoked any substance Overweight documented in this encounter [facility] Work Phone: Reason for visit Narrative* CV Imaging (Routine) - AuthorizedSpecialtyDiagnoses / ProceduresReferred By ContactReferred To ContactCardiology Diagnoses Aortic valve stenosis, etiology of cardiac valve disease unspecified Procedures Transthoracic Echo Complete SC ECHO TTHRC R-T 2D W/WOM-MODE COMPL SPEC&COLR D Shy Wolf MD [address] [facility] [address], [address] [address] Phone: tel: fax: Referral IDStatusReasonStart DateExpiration DateVisits RequestedVisits [id number] Perform Procedure [facility] Work Phone: Chief Complaint * [...] being tapered gradually * Shy Wolf MD, [facility] * LAVONNE VILLATORO is being seen [...] umatica) (M35.3) Referral Organization [facility] [place] Referring Provider First Name Suhas Referring Provider Last Name Ugo Referring Provider Specialty Family Prac sukhjinder Referred Organization [facility] Referred Address [address] [place], [place],[address] Referred Provider Specialty Rheumatology Referral Priority Routine General Notes Zaida Tinsley 10:11:01 AM >received today, completed CC referral form and faxed to their referring physicians department. Patient will be contacted by the CC to schedule her appointment. SpecialtyDiagnoses / ProceduresReferred By ContactReferred To ContactCardiology Diagnoses Aortic valve stenosis, etiology of cardiac valve disease unspecified Procedures Transthoracic Echo (TTE) Complete SC ECHO TTHRC R-T 2D W/WOM-MODE COMPL SPEC&COLR D Shy Wolf MD [address] [place] [address] 2, [address] [place] [address] Referral IDStatusReasonStgilbert DateExpiration DateVisits RequestedVisits [id number] Review Perform Procedure [id number] / ProceduresReferred By ContactReferred To ContactCardiology Diagnoses Aortic valve stenosis, etiology of cardiac valve disease unspecified Procedures Follow Up In Cardiology Shy Wolf MD [address] [place] [address] 2, [address] [address] Shy Wolf MD [address] [facility] [address], [address] [address] [facility] DateExpiration DateVisits RequestedVisits [id number]/11/20241/10/202511 Additional Source Comments REASON FOR VISIT (unrecogniz ed section and content) ReasonCommentsFollow-up9 month, echocardiogram resultsSpecialtyDiagnoses / ProceduresReferred By ContactReferred To ContactCardiology Diagnoses Aortic valve stenosis, etiology of cardiac valve disease unspecified Procedures Follow Up In Cardiology Shy Wolf MD [address] [place] [address], [address] [address] Phone: tel: fax: Shy Wolf MD [address] [place] [address], [place] [phone] Phone: tel: fax: Referral IDStatusReasonStart DateExpiration DateVisits RequestedVisits [id number]/8/202411/8/[id number] CommentsFollow-gs1hKqydjcly IDStatusReasonStart DateExpiration DateVisits RequestedVisits [id number]/11/20241/[id number] Diagnoses / ProceduresReferred By ContactReferred To ContactCardiology Diagnoses Nonrheumatic aortic valve stenosis Procedures Transthoracic Echo (TTE) Complete SC ECHO TRANSTHORC R-T 2D W/WO M-MODE REC F-UP/LMTD SC DOP ECHOCARD COLOR FLOW VELOCITY MAPPING SC DOP ECHOCARD PULSE WAVE W/SPECTRAL F-UP/LMTD STD Shy Wolf MD [address] [place] [id number] Referral IDStatusReasonStart DateExpiration DateVisits RequestedVisits [id number] Perform Procedure /[id number]-hx ClearancePOC for spinal cord stimulator, scheduled 12.13.[address] Weston. INFORMATION SOURCE (unrecogn ized section and content) DATE CREATED AUTHOR 03/06/2022 [facility] DATE CREATED AUTHOR AUTHOR'S ORGANIZ ATION 12/25/2022 [facility] DATE CREATED AUTHOR AUTHOR'S ORGANIZ ATION 12/25/2022 [facility] DATE CREATED AUTHOR AUTHOR'S ORGANIZ ATION 03/03/2023 [facility] DATE CREATED AUTHOR AUTHOR'S ORGANIZ ATION 07/29/2024 [facility] DATE CREATED AUTHOR AUTHOR'S ORGANIZ ATION 12/25/2024 [facility] DATE CREATED AUTHOR AUTHOR'S ORGANIZ ATION 01/16/2025 [facility] DATE CREATED AUTHOR AUTHOR'S ORGANIZ ATION 02/23/2025 [facility] Care Teams (unrecognized sec tion and content) Team MemberRelationshipSpecialtyStart DateEnd Date Suhas Garrett DO PCP - General06/09/99Team MemberRelationshipSpecialtyStart DateEnd Date Suhas Garrett DO [address] [place] [address] PCP - [facility]01/30/24Team MemberRelationshipSpecialtyStart DateEnd Date Suhas Garrett DO [address] [place] [address] [facility]01/30/24Team MemberRelationshipSpecialtyStart DateEnd Date Suhas Garrett DO [address] [place] [address] PCP - GeneralFamily Medicine01/30/24Team MemberRelationshipSpecialtyStart DateEnd Date Suhas Garrett DO [address] [place] [address] PCP - GeneralFamily Medicine01/30/24Team MemberRelationshipSpecialtyStart DateEnd Date Suhas Garrett DO [address] [place] [address] PCP - GeneralFamily Medicine01/30/24 FOR RECORDS PERTAINING [...] BE BASED ON THE PRIMARY CLINICAL RECORDS. [facility] [employer] [facility]. provides no warranty or guarantee of the accuracy or completeness of information in this document.
--- OUTSIDE RECORDS SUMMARY | 2025-04-04 06:37 | XMS_ITS | Clinical Summary ---
Author Organization [facility] Healthcare Address [address] [facility] [place] [address] Care Team Providers Care Hazardous Material Technician Name Role Phone Unavailable Primary Care Provider Unavailabl e Social History Tobacco UseTypesPacks/DayYears UsedDateSmoking Tobacco: Never Assessed CommentsUnknownSex and Gender InformationValueDate RecordedSex Assigned at Not on fileLegal BckZdrahn73/15/2023 7:21 PM EDTGender IdentityNot on fileSexual OrientationNot on file Last Filed Vital Signs Vital SignReadingTime TakenCommentsBlood Pressure--Pulse--Temperature-- Respiratory Rate--Oxygen Saturation--Inhaled Oxygen Concentration--Sircdp55.5 kg (140 lb)04/21/2020 12:00 PM IKNHccvbg650.5 cm (5' 2 )04/21/2020 12:00 PM ESTBody Mass Index25.6104/21/2020 12:00 PM EST Plan of Treatment [place] [address]
--- OUTSIDE RECORDS SUMMARY | 2025-04-04 06:38 | XMS_ITS | Clinical Summary ---
Author Organization [facility] Address [address] [place] [address] Phone Care Team Providers Care Welcome Hostess Name Role Phone Suhas Arizmendi DO Primary Care Provider [phone] Allergies Active AllergyReactionsCriticalityNoted UzfnFihwbdlqCcrdilhadspQrcoc81/27/2023 Eye pain TenwuavzhjkFbbnwKhbv73/27/5290TbvgmteozoOpand02/01/2025 Hair loss HydrocodoneGI KuppoNwrhcz21/11/3725RtqifigdnMcbcFen03/27/2023Valproic Acid Atliqdf6106/04/2023 Medications MedicationSigDispense QuantityRefillsLast FilledStart DateEnd DateStatus multivit-min/ferrous [...] Problems ProblemNoted DateDiagnosed DateBMI 27.0-27.9,adult04/16/2024Never smoked any xopzcqmfs02/11/2024ortic qsppwycz31/27/2023arotid bruit06/04/2023White coat syndrome with diagnosis of vkqvglnvthjy10/27/6874Qiousxxjchwbqz10/27/2023 Pzylqohutwoosm19/27/2023Murmur, cqsysys8906/04/2023MR (polymyalgia rheumatica) 06/04/2023 Encounters DateTypeDepartmentCare QxxiTcqylyqlsml11/08/2025 11:[address] [place] [address] Michel Wolf MD Nonrheumatic aortic valve stenosis (Primary Dx); 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; Hyperlipidemia, unspecified hyperlipidemia type; PMR (polymyalgia rheumatica) ([facility]); Hypothyroidism, unspecified type; BMI 27.0-27.9,adult; Never smoked any substance; Ppylruhgal39/08/2025Travelfrom Last 3 Months Immunizations ImmunizationAdministration DatesNext DueFlu vaccine, trivalent, preservative free, HIGH-DOSE, age 65y+ (Fluzone)03/09/2019Flu vaccine, trivalent, preservative free, age 6 months and greater (Fluarix/Fluzone/Flulaval)04/05/2014 Influenza Whole03/09/2014Influenza, Seasonal, Quadrivalent, Tzctqxzjpq65/25/2023 ,03/21/2022Influenza, Exdoloyhguu99/01/2018,04/09/2017,03/09/2016,03/09/2015, 03/09/2013,06/09/2011,06/09/2010,06/09/2009Influenza, injectable, quadrivalent 04/07/2015,04/14/2012Influenza, seasonal, wvhpocgbzy05/01/2020,03/04/2019 Influenza, trivalent, inuwaqoosa92/30/2024,03/06/2020,03/16/2018,03/28/2017, 04/01/2016Moderna COVID-19 vaccine, 12 years and older (50mcg/0.5mL)(Spikevax) 04/07/2024,04/02/2023Moderna COVID-19 vaccine, bivalent, blue cap/uribe label *Check age/dose*04/17/2022Novel rqnobnidl-M5O5-55, preservative-free05/30/2009 Pneumococcal conjugate vaccine, 13-valent (PREVNAR 13)05/24/2016,05/23/2016, [...] InformationValueDate RecordedSex Assigned at BirthNot on fileLegal DewRecpil81/25/2022 8:57 AM ESTGender Identity Not on fileSexual OrientationNot on file Last Filed Vital Signs Vital SignReadingTime TakenCommentsBlood Tktbjxpm832/7808 11:07 AM EDT Xgwks4055/08/2025 11:07 AM EDTTemperature--Respiratory Rate--Oxygen Saturation-- Inhaled Oxygen Concentration--Rgcztt20 kg (150 lb)01/14/2025 11:07 AM EDTHeight 157.5 cm (5' 2 )01/14/2025 11:07 AM EDTBody Mass Index27.44001/14/2025 11:07 AM EDT Plan of Treatment DateTypeDepartmentCare Team (Latest Contact Info)Bwvbomplmhv86/14/2026 10:45 AM EDTAppointment [facility] [address] [place] [phone] 01/26/2026 11:00 AM EDTOffice Visit [facility] [address] [facility] [address] [place] [id number] Michel Wolf MD [address] [facility] [address], [address] [place] [address] Health MaintenanceDue DateLast DoneCommentsLipid Panel1936TSH Level 1936Hepatitis A Vaccines (1 of 2 - Risk 2-dose series)08/11/1955Hepatitis B Vaccines (1 of 3 - Risk 3-dose series)1996Bone Density Scan02/19/2024 02/18/2022Influenza Vaccine (#1)51, 04/02/2023, 03/21/2022, Additional history existsCOVID-19 Vaccine ( season)2025 04/07/2024, 04/02/2023, 04/17/2022, Additional history existsMedicare Annual Wellness Visit (AWV)602/, 04/28/2020DTaP/Tdap/Td Vaccines (2 - Td or Tdap)Zoster MpyoomtlKigqocxvv04/26/2019, 02/04/2019, 10/19/2007RSV High Risk: (Elderly (60+) or Population)Completed 3Pneumococcal XakufjxBbhndxhlq10/15/2024, 04/28/2020, 05/24/2016, Additional history existsHIB VaccinesAged OutNo [...] DateEnd Date Suhas Arizmendi DO [address] [place] [address] PCP - [facility]Ke[facility] Centerly Medicine01/30/24
[2025-04-04 06:57] VITALS: BP 195/81; PULSE 57; TEMP 36.8; O2SAT 95
[2025-04-04] MEDS: CLINDAMYCIN PHOSPHATE/D5W 600 MG/50 ML PREMIX 100 MG IV (07:28)
[2025-04-04] MEDS: LIDOCAINE HCL 2%-EPINEPHRINE 1:200,000 20 ML MDV INJ (08:10)
--- NOTE | 2025-04-04 08:25 | P.ON_ITS ---
Date of procedure: 04/04/25 Pre-op diagnosis: Pain due to lumbar stenosis with neurogenic claudication Post-op diagnosis: same as pre-op Procedure: Procedure Performed by: Gloria Weston M.D. 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 Procedure: Risks, Benefits, Alternatives were reviewed and informed consent was obtained in the preop holding area. All questions were answered appropriately. The patient was brought to the operating room and placed in the prone position with padding under all bony prominences. A pre-procedure time out was performed specifying pt . name, nature site and side of surgery, and allergies. Anesthesia provided appropriate sedation as the skin over the thoracic and lumbar spine were prepped and draped in the usual sterile fashion. Under fluoroscopic guidance, the needle entry level staff accountant interspace noted above was identified as the site for epidural needle entry. The skin and subcutaneous tissues were anesthetized approximately 1 level inferior to this point with a mixture of 1% lidocaine and 0.25% bupivacaine. A 14 gauge tuohy needle was inserted to the superior aspect of the lamina just inferior to the target interspace. Then, using loss of resistance technique as well as fluoroscopic guidance, the epidural space was entered. Two [employer] Leads were then advanced under intermittent fluoroscopic guidance until the distal tip of the electrode was observed to be in position at the location noted above. After appropriate electrode placement was achieved, stimulation was tested intraoperatively with multiple lead configurations until concordant paresthesias were obtained covering the areas of the patient's pain. Intraoperative analysis and programming of the neurostimulator pulse generator was completed by the physician and the title insurance sales representative from [employer]. Next, the skin approximately 1cm superior to the needle entry point and 3cm distal to the needle entry point were anesthetized with 1% lidocaine and 0.25% bupivacaine. An incision was made along this area exposing the underlying fascia. Hemostasis was achieved. A small horizontal incision was made in the subcutaneous tissue overlying the posterior ilium after local anesthetic was infiltrated with 1% lidocaine and 0.25% bupivacaine mixture. A small pocket was made in the subcutaneous fat using blunt dissection. Hemostasis was obtained. A stimulator battery/implantable generator was then placed into the small pocket and attached to the electrodes. Testing was performed to ensure adequate connection between the electrodes and battery. After testing was completed, the two incisions were sutured with Vicryl 3-0 for deep tissue and Vicryl 4-0 for epidermis. The incisions were covered with sterile bandages. The patient was then taken to the recovery area in good condition. Anesthesia: MAC Surgeon: Gloria Weston Pathology: none sent Condition: stable Disposition: no change
[2025-04-04 09:03] VITALS: BP 147/60; PULSE 54; TEMP 36.3; O2SAT 97
[2025-04-04 09:09] VITALS: BP 146/62; PULSE 59; TEMP 36.3; O2SAT 98
== END 2025-04-04 09:30 | disposition home or self-care (01) ==
LOC: SURGOUT 06:34
PROVIDERS: PCP Family Medicine; Visit Provider Anesthesiology
DX: M48.062 Spinal stenosis, lumbar region with neurogenic claudication (principal); M54.50 Low back pain, unspecified
CPT/HCPCS: 36415; 63650; 63685; C1820; J2250; J2704

== ENCOUNTER 2025-04-06 13:56 | Outpatient (OUT) | payer MEDICARE, OTHER, SELFPAY ==
--- OUTSIDE RECORDS SUMMARY | 2025-04-06 13:59 | XMS_ITS | Clinical Summary ---
Author Organization [facility] Address [address] [place] [address] Care Team Providers Care Automobile Brake Bonder Name Role Phone Suhas Arizmendi DO Unavailable Suhas Arizmendi DO Primary Care Provider [phone] Allergies Active AllergyReactionsCriticalityNoted DateCommentsDivalproex SodiumIntolerance 03/29/2005Phenytoin Sodium YtixfzqcGkag34/21/2005 Medications MedicationSigDispense QuantityRefillsLast FilledStart DateEnd DateStatus NORVASC 5 MG TAB Take one(1) tablet daily.Active DIOVAN HCT 160 MG-12.5 MG TAB twice a sjb280Active METOPROLOL SR 50 MG 24 HR TAB once a voy993Active SYNTHROID 100 MCG TAB Take one(1) tablet daily.Active CALCIUM ANTACID 500 MG CHEWABLE TAB Calcium with D 600mg once a fys516Active VIT P-[id number]-ITUOF ACID-MAG OX 100 UNIT-2.05 MG TAB Vit e 400 IU every other lco003Active ASPIRIN 81 MG TAB once a qhd089Active Family History Medical HistoryRelationCommentsNoneMotherno family history of breast cancer RelationStatusCommentsMother Social History Tobacco UseTypesPacks/DayYears UsedDateSmoking Tobacco: Never Assessed CommentsUnknownSex and Gender InformationValueDate RecordedSex Assigned at Not on fileLegal MktUjscym40/02/2012 7:32 AM ESTGender IdentityNot on fileSexual OrientationNot on file Plan of Treatment Health MaintenanceDue DateLast DoneCommentsAnxiety Nufwewtop18/04/1955Depression Ovaikvrph44/04/1955DTaP,Tdap,Td Vaccine (1 - Tdap)08/11/1955Diabetes Screening 1981Pneumococcal Vaccine: 50+ (1 of 1 - PCV)1986Shingrix Vaccine (1 of 2)1986Bone Density Imtgrsenf50/04/2002RSV Vaccine (1 - 1-dose 75+ series)08/11/2011dvance Directive Srpigoravv83/01/2025ovid-19 Vaccine (1 - 2024-26 season)2025Influenza Vaccine (#1)2025 Insurance Care Teams Team MemberRelationshipSpecialtyStart DateEnd Date Suhas Arizmendi DO [address] [place] [address] PCP - [facility]07/23/23 Suhas Arizmendi DO [address] [place] [address] ReferringFabrockton hospital Medicine07/23/23
--- OUTSIDE RECORDS SUMMARY | 2025-04-06 13:59 | XMS_ITS | Clinical Summary ---
Author Organization [facility] Address [address] [facility] [place] [address] Care Team Providers Care Stained Glass Glazier Name Role Phone Unavailable Primary Care Provider Unavailabl e Social History Tobacco UseTypesPacks/DayYears UsedDateSmoking Tobacco: Never Assessed CommentsUnknownSex and Gender InformationValueDate RecordedSex Assigned at Not on fileLegal ZckXxnnrm32/15/2023 7:21 PM EDTGender IdentityNot on fileSexual OrientationNot on file Last Filed Vital Signs Vital SignReadingTime TakenCommentsBlood Pressure--Pulse--Temperature-- Respiratory Rate--Oxygen Saturation--Inhaled Oxygen Concentration--Cyjepy01.5 kg (140 lb)04/21/2020 12:00 PM PNHKkudry236.5 cm (5' 2 )04/21/2020 12:00 PM ESTBody Mass Index25.6104/21/2020 12:00 PM EST Plan of Treatment [place] [phone]
--- OUTSIDE RECORDS SUMMARY | 2025-04-06 13:59 | XMS_ITS | Clinical Summary ---
Author Organization [facility] Address [address] [place] [address] Phone Care Team Providers Care Card Setter Name Role Phone Suhas Arizmendi DO Primary Care Provider [phone] Allergies Active AllergyReactionsCriticalityNoted PwknGbqxctmhQzwuhpxinzdMzklt62/27/2023 Eye pain XcygjbphyvcJpbfhEodg80/27/7780UprnpepxciYmmjl06/01/2025 Hair loss HydrocodoneGI FforhWedyeo06/11/6615KonjhlwjsIipyWsw35/27/2023Valproic Acid Vmnkvpj4506/04/2023 Medications MedicationSigDispense QuantityRefillsLast FilledStart DateEnd DateStatus multivit-min/ferrous [...] Problems ProblemNoted DateDiagnosed DateBMI 27.0-27.9,adult04/16/2024Never smoked any vbehsvmnf66/11/2024ortic tcfqolif09/27/2023arotid bruit06/04/2023White coat syndrome with diagnosis of stqctjicugpc51/27/4602Ugbpsnsvayhzlv53/27/2023 Ebolgucwvjqucu73/27/2023Murmur, durwzpg6506/04/2023MR (polymyalgia rheumatica) 06/04/2023 Encounters DateTypeDepartmentCare FfpwDbrszgwmsom78/08/2025 11:[address] [place] [address] Michel Wolf MD Nonrheumatic aortic valve stenosis (Primary Dx); 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; Hyperlipidemia, unspecified hyperlipidemia type; PMR (polymyalgia rheumatica) ([facility]); Hypothyroidism, unspecified type; BMI 27.0-27.9,adult; Never smoked any substance; Zqpsanwyed12/08/2025Travelfrom Last 3 Months Immunizations ImmunizationAdministration DatesNext DueFlu vaccine, trivalent, preservative free, HIGH-DOSE, age 65y+ (Fluzone)03/09/2019Flu vaccine, trivalent, preservative free, age 6 months and greater (Fluarix/Fluzone/Flulaval)04/05/2014 Influenza Whole03/09/2014Influenza, Seasonal, Quadrivalent, Lqnwrqutla85/25/2023 ,03/21/2022Influenza, Rtkzwuiufvf25/01/2018,04/09/2017,03/09/2016,03/09/2015, 03/09/2013,06/09/2011,06/09/2010,06/09/2009Influenza, injectable, quadrivalent 04/07/2015,04/14/2012Influenza, seasonal, /01/2020,03/04/2019 Influenza, trivalent, phiybomypd05/30/2024,03/06/2020,03/16/2018,03/28/2017, 04/01/2016Moderna COVID-19 vaccine, 12 years and older (50mcg/0.5mL)(Spikevax) 04/07/2024,04/02/2023Moderna COVID-19 vaccine, bivalent, blue cap/uribe label *Check age/dose*04/17/2022Novel btqtjtfru-G9X9-13, preservative-free05/30/2009 Pneumococcal conjugate vaccine, 13-valent (PREVNAR 13)05/24/2016,05/23/2016, [...] InformationValueDate RecordedSex Assigned at BirthNot on fileLegal KxoCynixs17/25/2022 8:57 AM ESTGender Identity Not on fileSexual OrientationNot on file Last Filed Vital Signs Vital SignReadingTime TakenCommentsBlood Eyqujymo563/7808 11:07 AM EDT Vgfys8846/08/2025 11:07 AM EDTTemperature--Respiratory Rate--Oxygen Saturation-- Inhaled Oxygen Concentration--Jizane73 kg (150 lb)01/14/2025 11:07 AM EDTHeight 157.5 cm (5' 2 )01/14/2025 11:07 AM EDTBody Mass Index27.44001/14/2025 11:07 AM EDT Plan of Treatment DateTypeDepartmentCare Team (Latest Contact Info)Kmfatwbrhrs25/14/2026 10:45 AM EDTAppointment [facility] [address] [place] [phone] 01/26/2026 11:00 AM EDTOffice Visit [facility] [address] [facility] [address] [place] [phone] Michel Wolf MD [address] [facility] [address] [place] [address] Health MaintenanceDue DateLast DoneCommentsLipid Panel1936TSH Level 1936Hepatitis A Vaccines (1 of 2 - Risk 2-dose series)08/11/1955Hepatitis B Vaccines (1 of 3 - Risk 3-dose series)1996Bone Density Scan02/19/2024 02/18/2022Influenza Vaccine (#1)51, 04/02/2023, 03/21/2022, Additional history existsCOVID-19 Vaccine ( season)2025 04/07/2024, 04/02/2023, 04/17/2022, Additional history existsMedicare Annual Wellness Visit (AWV)602/, 04/28/2020DTaP/Tdap/Td Vaccines (2 - Td or Tdap)Zoster XrlmullvUexgedmew44/26/2019, 02/04/2019, 10/19/2007RSV High Risk: (Elderly (60+) or Population)Completed 3Pneumococcal VozfjyuRzothwgjk62/15/2024, 04/28/2020, 05/24/2016, Additional history existsHIB VaccinesAged OutNo [...] DateEnd Date Suhas Arizmendi DO [address] [place] [address] [facility]01/30/24
--- OUTSIDE RECORDS SUMMARY | 2025-04-06 14:01 | XMS_ITS | CCD ---
Author Organization [facility] CliniSyva Care Team Providers Care Vp Marketing Name Role Phone Suhas Garrett Unavailable Suhas [...] Attending Unavailable Suhas Garrett Primary Care Unavailable KunsuShas Admitting Unavailable KunSuhas arellano Attending Unavailable Suhas Garrett Primary Care Unavailable KunsSuhas Admitting Unavailable KunsSuhas Attending Unavailable Suhas Garrett Primary Care Unavailable GaelsSuhas Admitting Unavailable Kuns Suhas TYLER Primary Care Provider [phone] SHY WOLF Referring Unavailable SUHAS GARRETT Primary [...] of OnsetReaction(s) Facility (20 sources)Alendronate; Translations: [Fosamax]Drug Lyyzwwi73-63-9536SagczstSal[facility] Repository (20 sources)Amoxicillin; Translations: [amoxicillin]Drug Ppulcux60-02-2008hbhbn [place] [employer] Other (20 sources)Phenytoin; Translations: [Dilantin CAPS]Drug Ywtyjtr50-19-6328Fgzk [place] [employer] Other (20 sources)Valproate; Translations: [Depakote ER TB24]Drug AllergyUnknowMultiCare Valley Hospital [employer] Other (1 source)AlendronateDrug AllergyThe [facility] Repository (1 source)AmoxicillinDrug AllergyPremier Health [facility] Repository (1 source)PhenytoinDrug AllergyPremier Health [facility] Repository (1 source)ValproateDrug AllergyThe [facility] Repository (20 sources)Acetaminophen / HYDROcodoneDrug Allergyelevated liver enzymesMulticare [facility] [employer] Other (6 sources)AlendronateDrug Ruxqvvq86-75-2859QyqlzkmMercy Health (8 sources)HYDROcodone; Translations: [HYDROCODONE]Drug Whipvqx49-10-8001KZHolmes County [facility] Work Phone: (8 sources)Valproate; Translations: [VALPROIC ACID]Drug Tqbimgt52-08-3851TncfnmsWayne Hospital Work Phone: (1 source)AcetaminophenDrug Vdizdgu55-72-0496XblbhxrpwPremier Health Repository (1 source)AlendronateDrug Qjfzcpc35-30-0891TqypigkqpPremier Health Repository (1 source)AmoxicillinDrug Ijiekll77-35-6053RdijbgeqnPremier Health Repository (1 source)HYDROcodoneDrug Rmrqgaz72-15-6887WtpizrzhiPremier Health Repository (1 source)PhenytoinDrug Hkaoohy39-62-4186TreismvtyPremier Health Repository (1 source)ValproateDrug Dfcuqzp50-52-2627PlcpimoniPremier Health Repository (5 sources)Valproate; Translations: [DIVALPROEX]Drug Dafcmav83-98-7930EiexjProMedica Defiance Regional Hospital Work Phone: Medications Current Medications MedicationDrug [...] mg oral tablet (20 sources)Nonsteroidal Anti-inflammatory DrugStart: 97-56-1997mnfr 1 tablet by mouth twice daily at mealtime as neededIbuprofen 600 MG 1 tablet with food or milk as needed Orally Twice a day as needed with food Jan, ActiveStart: 94-87-6427tjzm 1 tablet by mouth three times daily at mealtime as needed Ibuprofen 600 MG 1 tablet with food or milk as needed Orally TID PRN with food Jan, Not-Takinglevothyroxine sodium 0.1 mg oral tablet (20 sources)l-ThyroxineStart: 48-05-4786vldm 1 tablet by mouth once daily levothyroxine [...] ActivepredniSONE 10 mg oral tablet (20 sources)Start: 97-26-0173odon 1 tablet by mouth once dailypredniSONE (Deltasone) 10 mg tablet Take 1 tablet (10 mg) by mouth once daily. 12/09/2024 ActiveStart: 91-04-2695yrgu 2 tablets by mouth once dailypredniSONE 10 MG 2 tablets x 7 days, 1 tablet x 7 days, then 1/2 tablet or 5mg daily thereafter Orally as directed Jun, ActiveStart: 61-40-5396ygjw 1 tablet by mouth every twenty-four hourspredniSONE 20 MG 1 tablet Orally Once a day for 10 days Apr, ActiveStart: 50-62-8399lgco 1 tablet by mouth every other day predniSONE 2.5 MG 1 tablet Orally alternating every other day with 5mg Nov, ActiveStart: 05-02-6804hefm 1 tablet by mouth every twenty-four hours predniSONE 2.5 MG 1 tablet Orally Once a day Apr, ActiveStart: 94-92-4713wbov 1 tablet by mouth every twenty-four hourspredniSONE 10 MG 1 tablet Orally Once a day for 90 days Apr, ActiveStart: 34-42-6265smdu 1 tablet by mouth every twenty-four hourspredniSONE 20 MG 1 tablet Orally Once a day for 30 day(s) Apr, ActiveStart: 67-30-3318fepblpKNMO 20 MG 1 tablet with food or milk Orally 1 tab twice a day x 5 days , 1 tab every day x 5days for 10 days Feb, ActiveStart: 92-03-0989pdsh 1 tablet by mouth at mealtime, then take 1 tablet by mouth twice daily, then take 1 tablet by mouth once dailypredniSONE 20 MG 1 tablet with food or milk Orally 1 tab twice a day x 5 days , 1 tab once a day X 5 days Jan, ActiveStart: 02-18-2091jexp 1 tablet by mouth every other daypredniSONE 5 MG 1 tablet Orally alternating every other day with 2.5mg Apr, ActiveStart: 02-22-2020 End: 43-97-0730mtnyxsRBTR (Deltasone) 5 mg tablet Take 1 tablet (5 mg) by mouth once daily. Alternating 2.5 tab 11/02/2021 01/14/2025 Discontinued (Dose adjustment)Start: 79-19-3153rofg 1 tablet by mouth every twenty-four hours predniSONE 2.5 MG 1 tablet Orally Once a day Feb, ActiveStart: 17-20-9431knvh 1.5 tablets by mouth every twenty-four hourspredniSONE 5 MG 1.5 tablets Orally Once a day Feb, ActivetraMADol hydrochloride 50 mg oral tablet (5 sources)Opioid AgonistStart: 81-56-9753oleu 1 tablet by mouth every eight hourstraMADol HCl 50 MG 1 tablet as needed Orally tid Jun, ActiveStart: 52-78-6715nirn 1 tablet by mouth every twenty-four hourstraMADol HCl 50 MG 1 tablet as needed Orally Once a day Jun, ActiveTylenol Arthritis Pain 650 MG (20 sources)Tylenol Arthritis Pain 650 MG as directed Orally Not-TakingTylenol Arthritis Pain 650 MG as directed Orally Active Completed/Discontinued Medications MedicationDrug Class(es)DatesSig (Normalized)Sig (Original)amLODIPine 10 mg oral tablet (20 sources)Dihydropyridine Calcium Channel BlockerStart: 72-73-5397qrvi 1 tablet by mouth every twenty-four hoursNorvasc 5 MG 1 tablet Orally Once a day for 90 day(s) May, ActiveStart: 06-03-2017 End: 53-99-0138euoa 1 tablet by mouth once dailyamLODIPine (Norvasc) 10 mg tablet Take 1 tablet (10 mg) by mouth once daily. 12/13/2021 12/07/2024 D iscontinued (Dose adjustment)calcium carbonate 1500 mg oral tablet (11 sources) End: 49-90-6049jegj 1 tablet by mouth once dailycalcium carbonate [...] 24-Dec-2022 DO ActiveFish Oils (4 sources) End: 34-93-5101ykci 1 capsule by mouth once dailyomega-3 (Fish [...] Not-Takingmelatonin 5 mg oral tablet (20 sources)Start: 47-23-4643hlqa 1 tablet by mouth every twenty-four hours Melatonin 5 MG 1 tablet in the evening Orally Once a day Sep, Not-Taking/PRNmethylPREDNISolone (20 sources)CorticosteroidStart: 73-01-0630NNFZ-MEDROL 41 - 125 mg Jan, 125 mgMulti Vitamin Oral Tablet (7 sources)take 1 tablet by mouth once dailyMulti Vitamin Oral Tablet TAKE 1 TABLET DAILY. Quantity: 0 Refills: 0 Ordered: 13-Dec-2021 DO ActiveOmega 3 500 CAPS (4 sources)[place] 3 500 CAPS TAKE 1 CAPSULE Daily Quantity: 0 Refills: 0 Ordered: 13-Dec-2021 DO Activeoxycodone HCl/acetaminophen (OXYCODONE-ACETAMINOPHEN ORAL) (2 sources)Start: 02-23-2024 End: 05-56-4972lbtpsopzs HCl/acetaminophen (OXYCODONE-ACETAMINOPHEN ORAL) Take by mouth. 02/23/2024 12/07/2024 Discontinued (Therapy completed)Start: 32-18-0116xkudnnwgh HCl/acetaminophen (OXYCODONE-ACETAMINOPHEN ORAL) Take by mouth. 02/23/2024 ActivetraZODone hydrochloride 50 mg oral tablet (16 sources)Serotonin Reuptake InhibitorStart: 65-93-8608hnmg 1 tablet by mouth every twenty-four hourstraZODone HCl 50 MG 1 tablet at bedtime as needed Orally Once a day prn Jul, Not-Taking/PRN Problems Active Problems Problem ClassificationProblemDateDocumented DateEpisodic/ChronicAbdominal pain (20 sources)Generalized abdominal pain; Translations: [Generalized abdominal pain]Onset: 02-22-2022 Resolved: 51-33-2610IvynmbkdTwuvqttfwgjhap/social admission (20 sources)Advance directive discussed with patient; Translations: [Other specified counseling]EpisodicCoronary atherosclerosis and other heart disease (20 sources)Coronary arteriosclerosis; 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 [place] coronary artery without angina pectoris]Onset: 09-03-2023 ChronicDisorders of lipid metabolism (20 sources)Hyperlipidemia; Translations: [Hyperlipidemia, unspecified]Onset: 04-26-2021 Resolved: 27-76-9125EdmczpwLidybeplf hypertension (20 sources)Hypertensive disorder; Translations: [Essential (primary) hypertension]Onset: 09-10-2021 Resolved: 78-47-6752JpivgzmCjfbv valve disorders (20 sources)Aortic valve stenosis; Translations: [Aortic valve disorders]Onset: 90-28-7341QnnyvrbCgfdzcoldcp deficiencies (1 source)Vitamin D deficiency, unspecified; Translations: [Vitamin D deficiency, unspecified]Onset: 21-46-1485GgimwmxDjqhazjxvygr (1 source)Osteoporosis; Translations: [Age-related osteoporosis without current pathological fracture]ChronicOther aftercare (1 source)Other [place] [facility] (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; Translations: [OTH 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 ENGINEER CURRENT DRUG THERAPY]Onset: 05-46-5020VsykdozlJmhas bone disease and musculoskeletal deformities (20 sources)Pain of left shoulder blade; Translations: [Other specified disorders of bone, shoulder]EpisodicOther bone disease and musculoskeletal deformities (20 sources)Osteopenia; Translations: [Other specified disorders of bone density and structure, multiple sites]EpisodicOther circulatory disease (20 sources)Cardiovascular symptoms; Translations: [Other specified symptoms and signs involving the circulatory and respiratory systems]EpisodicOther connective tissue disease (20 sources)Polymyalgia rheumatica; Translations: [Polymyalgia rheumatica]Onset: 427767-37-8430KpfugkkBepbc connective tissue disease (20 sources)Polymyalgia rheumatica; Translations: [Polymyalgia rheumatica]Onset: 04-26-2021 Resolved: 77-32-3129YrgzvnjPtazf connective tissue disease (1 source)Other muscle spasm; Translations: [OTHER MUSCLE SPASM]Onset: 95-84-2919LlcctnljHyujv liver diseases (20 sources)Disease of liver; Translations: [Liver disease, unspecified]Chronic Other lower respiratory disease (20 sources)Radiologic increased density of lung; Translations: [Other disorders of lung]EpisodicOther non-epithelial cancer of skin (20 sources)Basal cell carcinoma of skin; Translations: [Basal cell carcinoma of skin, unspecified]EpisodicOther non-traumatic joint disorders (6 sources)Pain in left shoulder; Translations: [PAIN IN LEFT SHOULDER]Onset: 02-20-2022 Resolved: 52-32-3830OsivqwrtVkwsj non-traumatic joint disorders (20 sources)Shoulder pain; Translations: [Pain in left shoulder]EpisodicOther nutritional; endocrine; and metabolic disorders (14 sources)Overweight in adulthood with body mass index of 25 or more but less than 30; Translations: [Overweight]Onset: 279167-08-4659KgaxbuclZwjel nutritional; endocrine; and metabolic disorders (1 source)Overweight; Translations: [Overweight]85-50-8513ElhrrlyjHgsem nutritional; endocrine; and metabolic disorders (2 sources)Body mass index (BMI) 27.0-27.9, adult; Translations: [Body mass index (BMI) 27.0-27.9, adult]Onset: 82-47-1594UifnsvugSdgan screening for suspected conditions (not mental disorders or infectious disease) (20 sources)Other specified abnormal findings of blood chemistry; Translations: [Elevated liver function tests]Onset: 02-26-2022 Resolved: 14-88-9287AfmxqxyiMjyxvwbb codes; unclassified (20 sources)Insomnia; Translations: [Insomnia, unspecified]EpisodicResidual codes; unclassified (20 sources)Family history of malignant neoplasm of gastrointestinal tract; Translations: [Family history of malignant neoplasm of digestive organs]Episodic Residual codes; unclassified (20 sources)Difficulty sleeping ; Translations: [Sleep disorder, unspecified] EpisodicResidual codes; unclassified (3 sources)Insomnia, unspecifiedOnset: 10-01-2021 Resolved: 48-37-1389EjvuymcjNsqtfudd codes; unclassified (9 sources)Never smoked any substance; Translations: [Other specified health status]Onset: 544172-30-4034QkmamsjsJxdmptda codes; unclassified (2 sources)Other specified health status; Translations: [Other specified health status]Onset: 38-73-7394RlwpxxubBjmhhmsffob; intervertebral disc disorders; other back problems (13 sources)Low back pain; Translations: [Lumbar back pain]EpisodicSprains and strains (20 sources)Strain of muscle and/or tendon of lower leg; Translations: [Strain of unspecified muscle and tendonat ankle and foot level, left foot, subsequent encounter]EpisodicThyroid disorders (20 sources)Hypothyroidism; Translations: [Hypothyroidism, unspecified]Onset: 04-26-2021 Resolved: 51-14-1643Yncfakj Past or Other Problems Problem ClassificationProblemDateDocumented DateEpisodic/ChronicConditions associated with dizziness or vertigo (2 sources)Dizziness and giddiness; Translations: [Dizziness and giddiness] Onset: 02-14-2022 Resolved: 85-35-3355YoleoxbsIctio valve disorders (20 sources)Heart murmur; Translations: [Cardiac murmur, unspecified]Onset: 10-01-2021 Resolved: 87-24-2819BftyqwqoTfcxn acquired deformities (1 source)Spondylolisthesis, lumbar regionOnset: 02-14-2022 Resolved: 25-31-3307HvupttjpWsfnj bone disease and musculoskeletal deformities (1 source)Other specified disorders of bone density and structure, unspecified siteOnset: 02-14-2022 Resolved: 29-43-1414HjaqfpvtTtcsb bone disease and musculoskeletal deformities (1 source)Other specified disorders of bone, shoulderOnset: 02-22-2022 Resolved: 12-49-6303CymxgudaKermf bone disease and musculoskeletal deformities (1 source)Other specified disorders of bone density and structure, multiple sitesOnset: 02-22-2022 Resolved: 10-89-6018DypagdahKafhb circulatory disease (20 sources)Carotid bruit; Translations: [Other symptoms involving cardiovascular system]Onset: 06-04-2023 Resolved: 119522-16-1677HkvzjdocAnydr circulatory disease (1 source)Other specified symptoms and signs involving the circulatory and respiratory systems; Translations:[Other specified symptoms and signs involving the circulatory and respiratory systems]Onset: 04-16-4757WzxwnjqdQwbzv liver diseases (1 source)Abnormal levels of other serum enzymes; Translations: [Abnormal levels of other serum enzymes]Onset: 00-83-8329AtrrbekeOgyhd nutritional; endocrine; and metabolic disorders (2 sources)Body mass index (BMI) 26.0-26.9, adult; Translations: [Body mass index (BMI) 26.0-26.9, adult]Onset: 34-95-1016ClshrbfcDzusb skin disorders (1 source)Localized swelling, mass and lump, headOnset: 04-26-2021 Resolved: 02-77-0123MufueyfeGuwfemvt codes; unclassified (1 source)Sleep disorder, unspecifiedOnset: 08-02-2021 Resolved: 79-26-5490IzhqbirrNoskyvvt codes; unclassified (1 source)Asymptomatic menopausal stateOnset: 02-14-2022 Resolved: 29-10-7420VaekrqucOpbzrkhcoskv (7 sources)Never smoked tobacco; Translations: [Never smoker]Unclassified (1 source)Cough R05.9Onset: 01-11-2022 Resolved: 16-69-8793Czohqyllkaso (3 sources)Lumbar back pain M54.50Onset: 02-14-2022 Resolved: 35-50-7258Ohnsivdiovfv (1 source)History of COVID-19 Z86.16Onset: 02-14-2022 Resolved: 95-63-6563Tiybzuucwwig (10 sources)Lumbar back pain; Translations: [Lumbar back pain]Unclassified (1 source)Vaccine counseling Z71.85Unclassified (6 sources)Onset: 06-19-2023 Resolved: Viral infection (20 sources)Disease caused by 2019-nCoV; Translations: [COVID-19]Onset: 01-11-2022 Resolved: 01-11-2022 Results Test NameValueInterpretationReference RangeFacilityTRANSTHORACIC ECHO (TTE) COMPLETEon 01-10-3784IFFUPXGLOREJS ECHO (TTE) COMPLETENortUNC Health Wayne [address], [address], [place] [address] TRANSTHORACIC ECHOCARDIOGRAM REPORT Patient Name: LAVONNE VILLATORO Reading Physician: [id number] Shy Wolf MD, [facility] Study Date: 12/21/2024 Ordering Provider: [id number] SHY WOLF MRN/PID: [id number] Fellow: Nurse: Date of /Age: 3 1935 / years Cellular Phone Repairer: Sheridan Lemus RDCS, T Gender Assigned at F Additional Staff: : Height: 157.48 cm Admit Date: Weight: 65.77 kg Admission Status: Outpatient BSA / BMI: 1.67 m2 / 26.52 Department Location: [facility] kg/m2 [place] Blood Pressure: 146 /68 mmHg Study Type: TRANSTHORACIC ECHO (TTE) COMPLETE Diagnosis/ICD: Nonrheumatic aortic (valve) stenosis-I35.0 Indication: HTN, Hyperlipidemia, 2/6 Systolic Murmur, Hypothyroid CPT Codes: Echo Complete w Full Doppler-10871 Study Detail: The following Echo studies were [...] AoV Area,Vmax: 0.85 cm (more content not included)...[facility] Transthoracicon 36-76-5498Pnslmq Valve Area by Continuity of Peak Velocity0.85 vm3BuktcjaqovCleveland Clinic [facility] Work Phone: [phone] Valve Area by Continuity of VTI0.9 cm2 [facility] Work Phone: [phone] mn kqaa67ikJcQuaragdhpyHarrison Community Hospital Work Phone: [phone] pk rolj72kmHkRruwwauhrwHarrison Community Hospital Work Phone: [phone] pk vel3.27 m/[facility] Work Phone: [phone] vol index A/L43.4 ml/v9PyhmvcrqpaHarrison Community Hospital Work Phone: [phone] A4C EF76.9UnHarrison Community Hospital Work Phone: [phone] Biplane EF71 %[facility] Work Phone: [phone] EF68 %[facility] Work Phone: [phone] cmUnHarrison Community Hospital Work Phone: [phone] diam1.89 cmUnHarrison Community Hospital Work Phone: [phone] avg E/e' ratio15.93UnHarrison Community Hospital Work Phone: [phone] E/A yewau3XqekuloauoHarrison Community Hospital Work Phone: [phone] free wall pk S'11.98 cm/[facility] Work Phone: [phone]ison Community Hospital Work Phone: [phone] annular plane systolic excursion2.4 cm [facility] Work Phone: [address], [address] [place] [address] TRANSTHORACIC ECHOCARDIOGRAM REPORT Patient Name: LAVONNE Bahena Physician: [id number] Shy Wolf MD, [facility] Study Date: 12/21/2024 Ordering Provider: [id number] SHY WOLF MRN/PID: [id number] Fellow: Nurse: Date of /Age: 3 1935 / 89 years Cellular Phone Repairer: Sheridan Lemus RDCS, RVT Gender Assigned at F Additional Staff: : Height: 157.48 cm Admit Date: Weight: 65.77 kg Admission Status: Outpatient BSA / BMI: 1.67 m2 / 26.52 Department Location: [facility] kg/m2 [place] Blood Pressure: 146 /68 mmHg Study Type: TRANSTHORACIC ECHO (TTE) COMPLETE Diagnosis/ICD: Nonrheumatic aortic (valve) stenosis-I35.0 Indication: HTN, Hyperlipidemia, 2/6 Systolic Murmur, Hypothyroid CPT Codes: Echo Complete w Full Doppler-62907 Study Detail: The following Echo studies were [...] content not included)...Shy Kenney MD - 12/21/2024 [facility] [address], [address], [place] [address] TRANSTHORACIC ECHOCARDIOGRAM REPORT Patient Name: LAVONNE VILLATORO Reading Physician: [id number] Shy Wolf MD, [facility] Study Date: 12/21/2024 Ordering Provider: [id number] SHY WOLF MRN/PID: [id number] Fellow: Nurse: Date of /Age: 3 1935 / 89 years Cellular Phone Repairer: Sheridan Lemus RDCS, RVT Gender Assigned at F Additional Staff: : Height: 157.48 cm Admit Date: Weight: 65.77 kg Admission Status: Outpatient BSA / BMI: 1.67 m2 / 26.52 Department Location: [facility] kg/m2 [place] Blood Pressure: 146 /68 mmHg Study Type: TRANSTHORACIC ECHO (TTE) COMPLETE Diagnosis/ICD: Nonrheumatic aortic (valve) stenosis-I35.0 Indication: HTN, Hyperlipidemia, 2/6 Systolic Murmur, Hypothyroid CPT Codes: Echo Complete w Full Doppler-31811 Study Detail: The following Echo studies were [...] cm (18-25cm) LVOT VTI: (more content not included)...[facility] Work Phone: UnH[facility] Work Phone: Complete Blood Count Auto Diffon 03-93-8599Gjorxyobs (Bld) [#/Vol]0.1 10*3/uLNormal0.0-0.2The [facility] Partners Physician GroupComment on above:Performed By: #### [id number], CMP, TSH3, LIPID, CBC, T4F, ESR #### [facility] [address] [place] [address] USABasophils/100 WBC (Bld)1.1 %Normal.The [facility] Physician GroupComment on above:Performed By: #### [id number], CMP, TSH3, LIPID, CBC, T4F, ESR #### [place] [address] USAEosinophils (Bld) [#/Vol]0.1 10*3/uLNormal0.0-0.45The [facility] Physician GroupComment on above:Performed By: #### [id number], CMP, TSH3, LIPID, CBC, T4F, ESR #### [place] [address] USAEosinophils/100 WBC (Bld)2.2 %Normal.The [facility] Physician GroupComment on above:Performed By: #### [id number], CMP, TSH3, LIPID, CBC, T4F, ESR #### [place] [address] USAErythrocyte distribution width (RBC) [Ratio]13.5 %Normal 11.9-15.3The [facility] Physician GroupComment on above:Performed By: #### [id number], CMP, TSH3, LIPID, CBC, T4F, ESR #### [place] [address] USAHematocrit (Bld) [Volume fraction]37.9 %Bjszhu40.0-46.4The [facility] Physician GroupComment on above:Performed By: #### [id number], CMP, TSH3, LIPID, CBC, T4F, ESR #### [place] [address] USAHemoglobin (Bld) [Mass/Vol]12.9 g/fZKujuel49.8-15.4The [facility] Physician GroupComment on above:Performed By: #### [id number], CMP, TSH3, LIPID, CBC, T4F, ESR #### [place] [address] USALymphocytes (Bld) [#/Vol]2.2 10*3/uLNormal1.00-4.8The [facility] Physician GroupComment on above:Performed By: #### [id number], CMP, TSH3, LIPID, CBC, T4F, ESR #### [place] [address] USALymphocytes/100 WBC (Bld)34.3 %Normal.The [facility] Physician GroupComment on above:Performed By: #### [id number], CMP, TSH3, LIPID, CBC, T4F, ESR #### [address]H (RBC) [Entitic mass]33.5 njLupfvz20.7-34.3The [facility] Physician GroupComment on above:Performed By: #### [id number], CMP, TSH3, LIPID, CBC, T4F, ESR #### [address] (RBC) [Entitic vol]98.4 aZMywnda82-830Svd [facility] Physician GroupComment on above:Performed By: #### [id number], CMP, TSH3, LIPID, CBC, T4F, ESR #### [place] [address] USAMean Corpuscular HGB Conc34.1 g/kZDiftjp15.0-35.0The [facility] Physician GroupComment on above:Performed By: #### [id number], CMP, TSH3, LIPID, CBC, T4F, ESR #### [place] [address] USAMonocytes (Bld) [#/Vol]0.6 10*3/uLNormal0.0-0.8The [facility] Physician GroupComment on above:Performed By: #### [id number], CMP, TSH3, LIPID, CBC, T4F, ESR #### [place] [address] USAMonocytes/100 WBC (Bld)9.8 %Normal.The [facility] Physician GroupComment on above:Performed By: #### [id number], CMP, TSH3, LIPID, CBC, T4F, ESR #### [facility] [address] [place] [address] USANeutrophils (Bld) [#/Vol]3.4 10*3/uLNormal1.8-7.7The [facility] Physician GroupComment on above:Performed By: #### [id number], CMP, TSH3, LIPID, CBC, T4F, ESR #### [place] [address] USANeutrophils/100 WBC (Bld)52.6 %Normal.The [facility] Physician GroupComment on above:Performed By: #### [id number], CMP, TSH3, LIPID, CBC, T4F, ESR #### [place] [address] USANRBC%0.3 /100{WBC}Normal0-0.5The [facility] Comment on above:Performed By: #### [id number], CMP, TSH3, LIPID, CBC, T4F, ESR #### [place] [address] USAPlatelet mean volume (Bld) [Entitic vol]9.3 fLNormal 6.3-10.7The [facility] Physician GroupComment on above:Performed By: #### [id number], CMP, TSH3, LIPID, CBC, T4F, ESR #### [place] [address] USAPlatelets (Bld) [#/Vol]208 10*3/bWQxdslx077-314Ovw [facility] Physician GroupComment on above:Performed By: #### [id number], CMP, TSH3, LIPID, CBC, T4F, ESR #### [place] [address] USARBC (Bld) [#/Vol]3.85 10*6/uLNormal3.60-5.00The [facility] Physician GroupComment on above:Performed By: #### [id number], CMP, TSH3, LIPID, CBC, T4F, ESR #### [place] [id number] USAWBC (Bld) [#/Vol]6.6 10*3/uLNormal3.8-11.6The [facility] Physician GroupComment on above:Performed By: #### [id number], CMP, TSH3, LIPID, CBC, T4F, ESR #### [place] [address] USAComprehensive Metabolic Panelon 01-79-2660Jyiioem [Mass/Vol]3.7 g/dLNormal3.5-5.7The [facility] Physician GroupComment on above: Performed By: #### [id number], CMP, TSH3, LIPID, CBC, T4F, ESR #### [place] [address] USAAlbumin/Globulin [Mass ratio]1.9 {ratio}NormalThe [facility] Physician GroupComment on above:Performed By: #### [id number], CMP, TSH3, LIPID, CBC, T4F, ESR #### [place] [address] USAALP [Catalytic activity/Vol]62 U/TIncrqx77-383Wkb [facility] Physician GroupComment on above:Performed By: #### [id number], CMP, TSH3, LIPID, CBC, T4F, ESR #### [place] [address] USAALT [Catalytic activity/Vol]21 U/LNormal7-52The [facility] Physician GroupComment on above:Performed By: #### [id number], CMP, TSH3, LIPID, CBC, T4F, ESR #### [place] [address] USAAnion gap [Moles/Vol]8.2 mmol/LNormal6.0-15.0The [facility] Physician GroupComment on above:Performed By: #### [id number], CMP, TSH3, LIPID, CBC, T4F, ESR #### [place] [address] USAAST [Catalytic activity/Vol]19 U/ULpfyus18-42Lur [facility] Physician GroupComment on above:Performed By: #### [id number], CMP, TSH3, LIPID, CBC, T4F, ESR #### [place] [address] USABilirubin [Mass/Vol]0.7 mg/dLNormal0.3-1.0The [facility] Physician GroupComment on above:Performed By: #### [id number], CMP, TSH3, LIPID, CBC, T4F, ESR #### [place] [address] USACalcium [Mass/Vol]9.7 mg/dLNormal8.6-10.3The [facility] Physician GroupComment on above:Performed By: #### [id number], CMP, TSH3, LIPID, CBC, T4F, ESR #### [place] [address] USAChloride [Moles/Vol]107 mmol/ONaytxx39-545Hiz [facility] Physician GroupComment on above:Performed By: #### [id number], CMP, TSH3, LIPID, CBC, T4F, ESR #### [place] [address] USACO2 [Moles/Vol]31.5 mmol/LHigh21.0-31.0The [facility] Physician GroupComment on above:Performed By: #### [id number], CMP, TSH3, LIPID, CBC, T4F, ESR #### [place] [address] USACreatinine [Mass/Vol]0.67 mg/dLNormal0.60-1.20The [facility] Physician GroupComment on above:Performed By: #### [id number], CMP, TSH3, LIPID, CBC, T4F, ESR #### [place] [address] USAGFR/1.73 sq M.predicted MDRD (S/P/Bld) [Vol rate/Area] mL/min/{1.73_m2}NormalThe [facility] Physician GroupComment on above:Performed By: #### [id number], CMP, TSH3, LIPID, CBC, T4F, ESR #### [place] [address] USAGlobulin (S) [Mass/Vol]1.9 g/dLNormalThe [facility] Physician GroupComment on above:Performed By: #### [id number], CMP, TSH3, LIPID, CBC, T4F, ESR #### [place] [address] USAGlucose [Mass/Vol]89 mg/hKGyrtnx33-810Ncn [facility] Physician GroupComment on above:Result Comment: Random Glucose Reference Range is dependent on time and content of last meal. Glucose of more than 200 mg/dL in a nonstressed, ambulatory subject supports the diagnosis of Diabetes Mellitus. ADA recommended reference rangePerformed By: #### [id number], CMP, TSH3, LIPID, CBC, T4F, ESR #### [place] [address] USAPotassium [Moles/Vol]3.7 mmol/LNormal3.5-5.1The [facility] Physician GroupComment on above:Performed By: #### [id number], CMP, TSH3, LIPID, CBC, T4F, ESR #### [place] [address] USAProtein [Mass/Vol]5.6 g/dLLow6.4-8.9The [facility] Physician GroupComment on above:Performed By: #### [id number], CMP, TSH3, LIPID, CBC, T4F, ESR #### [place] [address] USASodium [Moles/Vol]143 mmol/OVsxwyo249-345Tow [facility] Physician GroupComment on above:Performed By: #### [id number], CMP, TSH3, LIPID, CBC, T4F, ESR #### [place] [address] USAUrea nitrogen [Mass/Vol]19 mg/dLNormal7-25The [facility] Physician GroupComment on above:Performed By: #### [id number], CMP, TSH3, LIPID, CBC, T4F, ESR #### [facility] [address] [place] [id number] USAErythrocyte Sedimentation Rateon 41-07-2874FUM (Bld) [Velocity]9 mm/hNormal0-29The [facility] Physician GroupComment on above:Result Comment: PERFORMED BY: [place] [address] PATHOLOGIST METAL FURRER JASIEL HURTADO M.D.Performed By: #### [id number], CMP, TSH3, LIPID, CBC, T4F, ESR #### [place] [address] USAFree T4 (Free Thyroxine)on 22-25-8165Kcua T4 [Mass/Vol] 0.74 ng/dLNormal0.61-1.12The [facility] Physician GroupComment on above:Performed By: #### LIPID, TSH3, CMP, CBC #### [place] [address] USALipid Panelon 31-57-8641Vealdrvnncn [Mass/Vol]228 mg/dL Msik023-793Pak [facility] Physician GroupComment on above:Result Comment: Chol less than 200 mg/dl low risk Chol 201-239 mg/dl borderline risk Chol 240 mg/dl and greater high riskPerformed By: #### [id number], CMP, TSH3, LIPID, CBC, T4F, ESR #### [place] [id number] USACholesterol in HDL [Mass/Vol]96 mg/yDIdfo95-93Jtf [facility] Physician GroupComment on above:Result Comment: HDL CHOL ATP-III CLASSIFICATION Cardiovascular Risk HDL > or equal to 60 mg/dL LOW HDL < 40 mg/dL HIGHPerformed By: #### [id number], CMP, TSH3, LIPID, CBC, T4F, ESR #### [place] [id number] USACholesterol.total/Cholesterol in HDL [Mass ratio]2.4 {ratio}Normal<5.0The [facility] Physician GroupComment on above:Performed By: #### [id number], CMP, TSH3, LIPID, CBC, T4F, ESR #### [facility] [address] [place] [address] USALDL Cholesterol,Fovrnsmlwj048 mg/dLHigh0-100The [facility] Physician GroupComment on above:Result Comment: LDL ATP III CLASSIFICATION LDL less than 100 mg/dL Optimal LDL 100-129 mg/dL Near or above optimal LDL 130-159 mg/dL Borderline high LDL 160-189 mg/dL High LDL greater than 189 mg/dL Very highPerformed By: #### [id number], CMP, TSH3, LIPID, CBC, T4F, ESR #### [facility] [address] [place] [address] USATriglyceride w/Lptgmp13 mg/dLNormal0-149The [facility] Physician GroupComment on above:Result Comment: TRIG ATP III CLASSIFICATION TRIG less than 150 mg/dL Normal TRIG 150-199 mg/dL Borderline high TRIG 200-500 mg/dL High TRIG greater than 500 mg/dL Very high Standard traceable to the Center for Disease Conrtrol and Prevention (CDC) test method.Performed By: #### [id number], CMP, TSH3, LIPID, CBC, T4F, ESR #### [facility] [address] [place] [address] USAVLDL AJETMIZGQSO27 mg/dLNormalThe [facility] Physician GroupComment on above:Performed By: #### [id number], CMP, TSH3, LIPID, CBC, T4F, ESR #### [facility] [address] [place] [address] USAThyroid Stimulating Hormoneon 54-18-0296ZCH Qn6.38 m[IU]/L High0.45-5.33The [facility] Physician GroupComment on above:Performed By: #### LIPID, TSH3, CMP, CBC #### [facility] [address] [place] [address] USAVitamin D 25 Hydroxy Totalon 96-41-9360Cqobfrt D 25 Hydroxy Total28.4 ng/oQNxh62-770Tkj [facility] Physician GroupComment on above: Result Comment: VITAMIN D STATUS 25(OH)VITAMIN D RANGE (ng/mL) Deficient <20 Insufficient 20 to <30 Sufficient 30 to 100 Reference: Yolanda ARIAS,Nathan NC, Keshawn FRANCO, et al. Evaluation,treatment, and prevention of vitamin D deficiency; an Endocrine Society clinical practice guideline. JCEM. 2010; 96(7):1911-30. PERFORMED BY: [place] [address] PATHOLOGIST METAL FURRER JASIEL HURTADO M.D.Performed By: #### LIPID, TSH3, CMP, CBC #### [place] [address] USAXR scapula LT*on 48-31-5180DU scapula LT*[facility] [address] [place] [address] [place] [address] XRay Report Signed Patient: Lavonne Villatoro MR#: [id number] : 1935 Acct:[id number] Age/Sex: 88 / F ADM Date: 05/25/24 Loc: Room: Type: [facility] Attending Dr: Suhas Garrett DO Copies to: Suhas Garrett DO Ordering Provider: Suhas Garrett DO Date of Service: 05/25/24 XR/XR shoulder LT min 2V*: M25.519 - Pain in unspecified shoulder ([id number]) XR/XR scapula LT*: M25.519 - Pain in [...] Casandra Gómez M.D.05/25/2024 4:45 PM Dictation Location: [place] [address] Transcribed By: [facility] 05/25/241644 Dictated By: Casandra Gómez MD 05/25/241641 Signed By: 05/25/[address] [facility] Physician GroupTRANSTHORACIC ECHO (TTE) COMPLETEon 22-85-6152ACRZQRGQKFTBW ECHO (TTE) COMPLETENo[address] [place] [address] TRANSTHORACIC ECHOCARDIOGRAM REPORT Patient Name: LAVONNE VILLATORO Reading Physician: [id number] Shy Wolf MD, [facility] Study Date: 02/11/2024 Ordering Provider: [id number] SHY WOLF MRN/PID: [id number] Fellow: Nurse: Date of /Age: 3 1935 / 88 years Cellular Phone Repairer: LILIA Gender: F Additional Staff: Height: 157.48 cm Admit Date: Weight: 69.40 kg Admission Status: BSA / BMI: 1.71 m2 / 27.98 kg/m2 Department Location: [facility] Blood Pressure: 116 /76 mmHg Study Type: TRANSTHORACIC ECHO (TTE) COMPLETE Diagnosis/ICD: Nonrheumatic aortic (valve) stenosis-I35.0 Indication: HTN, Hyperlipidemia, 3/6 Systolic Murmur, Hypothryoid, Overweight CPT Codes: Echo Complete w Full Doppler-16788 Study Detail: The following Echo studies were [...] mmHg PIEDV: 2.23 m/s PADP: 22.9 mmHg [id number] Shy Wolf MD, FACC Electronical (more content not included)...[facility] BIon 98-76-3466OQ carotid doppler [facility] Main [place] [address] [place] [address] Ultrasound Report Signed Patient: Lavonne Villatoro MR#: [id number] : 1935 Acct:[id number] Age/Sex: 88 / F ADM Date: 10/14/23 Loc: Room: Type: [facility] Attending Dr: Suhas Garrett DO Ordering [...] Hola Wynn M.D.10/15/2023 11:47 AM Dictation Location: [place] [address] Tech: Jackie Aguillon Transcribed By: KIRILL 10/15/23 1147 Dictated By: Hola Wynn MD 10/15/23 1145 Signed By: 10/15/[address] Physician [facility] HospitalComplete Blood Count Auto Diffon 47-24-7270Fhxphzmfr (Bld) [#/Vol]0.0 10*3/uLNormal0.0-0.2The [facility] Physician GroupComment on above:Result Comment: PERFORMED BY: [place] [address] PATHOLOGIST METAL FURRER JODY SOLANO M.D.Performed By: #### LIPID, TSH3, CMP, CBC #### [place] [address] USABasophils/100 WBC (Bld)0.7 %Normal.The [facility] Physician GroupComment on above:Performed By: #### LIPID, TSH3, CMP, CBC #### [place] [address] USAEosinophils (Bld) [#/Vol]0.1 10*3/uLNormal0.0-0.45The [facility] Physician GroupComment on above:Performed By: #### LIPID, TSH3, CMP, CBC #### [place] [address] USAEosinophils/100 WBC (Bld)1.6 %Normal.The [facility] Physician GroupComment on above:Performed By: #### LIPID, TSH3, CMP, CBC #### [place] [address] USAErythrocyte distribution width (RBC) [Ratio]14.8 %Normal 11.9-15.3The [facility] Physician GroupComment on above:Performed By: #### LIPID, TSH3, CMP, CBC #### [place] [address] USAHematocrit (Bld) [Volume fraction]39.9 %Agdnbg67.0-46.4The [facility] Physician GroupComment on above:Performed By: #### LIPID, TSH3, CMP, CBC #### [place] [address] USAHemoglobin (Bld) [Mass/Vol]13.2 g/dWZydbuk54.8-15.4The [facility] Physician GroupComment on above:Performed By: #### LIPID, TSH3, CMP, CBC #### [place] [address] USALymphocytes (Bld) [#/Vol]2.6 10*3/uLNormal1.00-4.8The [facility] Physician GroupComment on above:Performed By: #### LIPID, TSH3, CMP, CBC #### [place] [address] USALymphocytes/100 WBC (Bld)43.5 %Normal.The [facility] Physician GroupComment on above:Performed By: #### LIPID, TSH3, CMP, CBC #### [place] [address] USAMCH (RBC) [Entitic mass]33.2 xwQjlmgr61.7-34.3The [facility] Physician GroupComment on above:Performed By: #### LIPID, TSH3, CMP, CBC #### [place] [address] USAV (RBC) [Entitic vol]100.5 kTOdcr19-950Bdi [facility] Physician GroupComment on above:Performed By: #### LIPID, TSH3, CMP, CBC #### [place] [address] USAMean Corpuscular HGB Conc33.0 g/zZUnjrtg79.0-35.0The [facility] Physician GroupComment on above:Performed By: #### LIPID, TSH3, CMP, CBC #### [place] [address] USAMonocytes (Bld) [#/Vol]0.6 10*3/uLNormal0.0-0.8The [facility] Physician GroupComment on above:Performed By: #### LIPID, TSH3, CMP, CBC #### [place] [address] USAMonocytes/100 WBC (Bld)9.7 %Normal.The [facility] Physician GroupComment on above:Performed By: #### LIPID, TSH3, CMP, CBC #### [place] [address] USANeutrophils (Bld) [#/Vol]2.7 10*3/uLNormal1.8-7.7The [facility] Physician GroupComment on above:Performed By: #### LIPID, TSH3, CMP, CBC #### [place] [address] USANeutrophils/100 WBC (Bld)44.5 %Normal.The [facility] Physician GroupComment on above:Performed By: #### LIPID, TSH3, CMP, CBC #### [place] [address] USANRBC%0.2 /100{WBC}Normal0-0.5The [facility] Comment on above:Performed By: #### LIPID, TSH3, CMP, CBC #### [place] [address] USAPlatelet mean volume (Bld) [Entitic vol]9.2 fLNormal 6.3-10.7The [facility] Physician GroupComment on above:Performed By: #### LIPID, TSH3, CMP, CBC #### [place] [address] USAPlatelets (Bld) [#/Vol]229 10*3/mMHbqbnu109-749Sdr [facility] Physician GroupComment on above:Performed By: #### LIPID, TSH3, CMP, CBC #### [place] [address] USARBC (Bld) [#/Vol]3.98 10*6/uLNormal3.60-5.00The [facility] Physician GroupComment on above:Performed By: #### LIPID, TSH3, CMP, CBC #### [facility] [address] [place] [address] USAWBC (Bld) [#/Vol]6.0 10*3/uLNormal3.8-11.6The [facility] Physician GroupComment on above:Performed By: #### LIPID, TSH3, CMP, CBC #### [place] [address] USAComprehensive Metabolic Panelon 03-75-1005Vflvwwb [Mass/Vol]3.8 g/dLNormal3.5-5.7The [facility] Physician GroupComment on above: Performed By: #### LIPID, TSH3, CMP, CBC #### [place] [address] USAAlbumin/Globulin [Mass ratio]1.7 {ratio}NormalThe [facility] Physician GroupComment on above:Performed By: #### LIPID, TSH3, CMP, CBC #### [place] [address] USAALP [Catalytic activity/Vol]72 U/UGpcajr86-707Nba [facility] Physician GroupComment on above:Performed By: #### LIPID, TSH3, CMP, CBC #### [place] [address] USAALT [Catalytic activity/Vol]43 U/LNormal7-52The [facility] Physician GroupComment on above:Performed By: #### LIPID, TSH3, CMP, CBC #### [place] [address] USAAnion gap [Moles/Vol]8.9 mmol/LNormal6.0-15.0The [facility] Physician GroupComment on above:Performed By: #### LIPID, TSH3, CMP, CBC #### [place] [address] USAAST [Catalytic activity/Vol]23 U/TZodkvl87-46Ych [facility] Physician GroupComment on above:Performed By: #### LIPID, TSH3, CMP, CBC #### [place] [address] USABilirubin [Mass/Vol]1.2 mg/dLHigh0.3-1.0The [facility] Physician GroupComment on above:Performed By: #### LIPID, TSH3, CMP, CBC #### [place] [address] USACalcium [Mass/Vol]9.5 mg/dLNormal8.6-10.3The [facility] Physician GroupComment on above:Performed By: #### LIPID, TSH3, CMP, CBC #### [facility] [address] [place] [address] USAChloride [Moles/Vol]107 mmol/LPctaib43-393Vxi [facility] Physician GroupComment on above:Performed By: #### LIPID, TSH3, CMP, CBC #### [place] [address] USACO2 [Moles/Vol]30.0 mmol/QTqqoeh67.0-31.0The [facility] Physician GroupComment on above:Performed By: #### LIPID, TSH3, CMP, CBC #### [place] [address] USACreatinine [Mass/Vol]0.76 mg/dLNormal0.60-1.20The [facility] Physician GroupComment on above:Performed By: #### LIPID, TSH3, CMP, CBC #### [place] [address] USAGFR/1.73 sq M.predicted MDRD (S/P/Bld) [Vol rate/Area] mL/min/{1.73_m2}NormalThe [facility] Physician GroupComment on above:Performed By: #### LIPID, TSH3, CMP, CBC #### [place] [address] USAGlobulin (S) [Mass/Vol]2.2 g/dLNormalThe [facility] Physician GroupComment on above:Performed By: #### LIPID, TSH3, CMP, CBC #### [place] [address] USAGlucose [Mass/Vol]79 mg/bCJbnoau09-242Tsz [facility] Physician GroupComment on above:Result Comment: Random Glucose Reference Range is dependent on time and content of last meal. Glucose of more than 200 mg/dL in a nonstressed, ambulatory subject supports the diagnosis of Diabetes Mellitus. ADA recommended reference rangePerformed By: #### LIPID, TSH3, CMP, CBC #### [facility] [address] [place] [address] USAPotassium [Moles/Vol]3.9 mmol/LNormal3.5-5.1The [facility] Physician GroupComment on above:Performed By: #### LIPID, TSH3, CMP, CBC #### [facility] [address] [place] [address] USAProtein [Mass/Vol]6.0 g/dLLow6.4-8.9The [facility] Physician GroupComment on above:Performed By: #### LIPID, TSH3, CMP, CBC #### [facility] [address] [place] [address] USASodium [Moles/Vol]142 mmol/MNforzx184-079Svd [facility] Physician GroupComment on above:Performed By: #### LIPID, TSH3, CMP, CBC #### [facility] [address] [place] [address] USAUrea nitrogen [Mass/Vol]22 mg/dLNormal7-25The [facility] Physician GroupComment on above:Performed By: #### LIPID, TSH3, CMP, CBC #### [place] [address] USALipid Panelon 90-39-0667Qrueptosvfk [Mass/Vol]243 mg/dL Gwvu686-885Hot [facility] Physician GroupComment on above:Result Comment: Chol less than 200 mg/dl low risk Chol 201-239 mg/dl borderline risk Chol 240 mg/dl and greater high riskPerformed By: #### LIPID, TSH3, CMP, CBC #### [place] [address] USACholesterol in HDL [Mass/Vol]98 mg/eCZmdy87-49Kac [facility] Physician GroupComment on above:Result Comment: HDL CHOL ATP-III CLASSIFICATION Cardiovascular Risk HDL > or equal to 60 mg/dL LOW HDL < 40 mg/dL HIGHPerformed By: #### LIPID, TSH3, CMP, CBC #### [facility] [address] [place] [address] USACholesterol.total/Cholesterol in HDL [Mass ratio]2.5 {ratio}Normal<5.0The [facility] Physician GroupComment on above:Performed By: #### LIPID, TSH3, CMP, CBC #### [facility] [address] [place] [address] USALDL Cholesterol,Mgwyzbqgss087 mg/dLHigh0-100The [facility] Physician GroupComment on above:Result Comment: LDL ATP III CLASSIFICATION LDL less than 100 mg/dL Optimal LDL 100-129 mg/dL Near or above optimal LDL 130-159 mg/dL Borderline high LDL 160-189 mg/dL High LDL greater than 189 mg/dL Very highPerformed By: #### LIPID, TSH3, CMP, CBC #### [place] [address] USATriglyceride w/Mzjhrc404 mg/dLNormal0-149The [facility] Physician GroupComment on above:Result Comment: TRIG ATP III CLASSIFICATION TRIG less than 150 mg/dL Normal TRIG 150-199 mg/dL Borderline high TRIG 200-500 mg/dL High TRIG greater than 500 mg/dL Very high Standard traceable to the Center for Disease Conrtrol and Prevention (CDC) test method.Performed By: #### LIPID, TSH3, CMP, CBC #### [place] [address] USAVLDL HMYFPFQGXNK40 mg/dLNormalThe [facility] Physician GroupComment on above:Performed By: #### LIPID, TSH3, CMP, CBC #### [place] [id number] USAThyroid Stimulating Hormoneon 89-68-7273ZDM Qn4.01 m[IU]/L Normal0.45-5.33The [facility] Physician GroupComment on above:Result Comment: PERFORMED BY: [place] [address] PATHOLOGIST METAL FURRER JODY SOLANO M.D.Performed By: #### LIPID, TSH3, CMP, CBC #### [facility] [address] [place] [address] USAComplete Blood Count Auto Diffon 09-77-2859Vxfvapxeh (Bld) [#/Vol]0.809804430 10*3/uLNormal0.0-0.2 10*3/Moviecom.tv Other Basophils/100 WBC (Bld)0.900 %. %Yesmail Other Eosinophils (Bld) [#/Vol]0.062657418 10*3/uLNormal0.0- 0.45 10*3/[employer] Other Eosinophils/100 WBC (Bld)1.100 %. %Yesmail Other Erythrocyte distribution width (RBC) [Ratio]14.000 % Gnrmcf48.9-15.3 %Yesmail Other Hematocrit (Bld) [Volume fraction]37.700 %Xrhiht56.0- 46.4 %Yesmail Other Hemoglobin (Bld) [Mass/Vol]12.353642 g/gLAnjbdk07.8- 15.4 g/dLNoDeadstock Network Other Lymphocytes (Bld) [#/Vol]2.601269003 10*3/uLNormal 1.00-4.8 10*3/[employer] Other Lymphocytes/100 WBC (Bld)35.100 %. %Yesmail Other MCH (RBC) [Entitic mass]33.3000 cuEysjrl04.7-34.3 pg Yes[employer] Other MCV (RBC) [Entitic vol]99.7000 sOEzvsxu40-881 fLYesmail Other Monocytes (Bld) [#/Vol]0.427785529 10*3/uLNormal0.0- 0.8 10*3/[employer] Other Monocytes/100 WBC (Bld)10.000 %. %Yesmail Other Neutrophils (Bld) [#/Vol]3.376168342 10*3/uLNormal1.8- 7.7 10*3/[employer] Other Neutrophils/100 WBC (Bld)52.900 %. %Yesmail Other Platelet mean volume (Bld) [Entitic vol]9.9000 fL Normal6.3-10.7 fLWest Halifax Evisors Other Platelets (Bld) [#/Vol]224 10*3/bDLeoihv949-666 10*3/[employer] Other RBC (Bld) [#/Vol]3.78 10*6/uLNormal3.60-5.00[place] [employer] Other WBC (Bld) [#/Vol]7.779405215 10*3/uLNormal3.8-11.6 10*3/[employer] Other Complete Blood Count Auto Diff7.1 10*3/uLNormal3.8- 11.6 10*3/[employer] Other Complete Blood Count Auto Diff33.4 g/bYUpmgys55.0-35.0 g/dLYesmail Other Complete Blood Count Auto Diff0.1 /100{WBC}Normal0-0.5 /100{WBC}Yesmail Other Comprehensive Metabolic Panelon 19-92-4182Sjwjxay [Mass/Vol]3.353305 g/dLNormal3.5-5.7 g/dLNoGlobal [employer] Other Albumin/Globulin [Mass ratio]1.7 {ratio}Yesmail Other ALP [Catalytic activity/Vol]140 U/MYppy58-340 U/Scandid Other ALT [Catalytic activity/Vol]71 U/LHigh7-52 U/Scandid Other AST [Catalytic activity/Vol]20 U/JOfmbmd26-28 U/Scandid Other Bilirubin [Mass/Vol]0.7281660 mg/dLNormal0.3-1.0 mg/dL Yesmail Other Calcium [Mass/Vol]9.7190098 mg/dLNormal8.6-10.3 mg/dL Yes[employer] Other Chloride [Moles/Vol]107 mmol/IAoggex30-831 mmol/Scandid Other CO2 [Moles/Vol]30.82316114 mmol/JOdlhdv47.0-31.0 mmol/Scandid Other Creatinine [Mass/Vol]0.70836457 mg/dLNormal0.60-1.20 mg/dLNoDeadstock Network Other GFR/1.73 sq M.predicted MDRD (S/P/Bld) [Vol rate/Area] mL/min/{1.73_m2}Yesmail Other Glucose [Mass/Vol]89 mg/jWOapxpr88-921 mg/dLYesmail Other Potassium [Moles/Vol]3.62816006 mmol/LNormal3.5-5.1 mmol/Scandid Other Protein [Mass/Vol]6.969776 g/dLLow6.4-8.9 g/dLWest [place] Evisors Other Sodium [Moles/Vol]143 mmol/LTehexe519-718 mmol/LNst. luke's hospital Evisors Other Urea nitrogen [Mass/Vol]21 mg/dLNormal7-25 mg/dLWest [place] [employer] Other Comprehensive Metabolic Panel2.2 g/dLNouniversity health truman medical center Evisors Other Free T4 (Free Thyroxine)on 69-21-4292Kadm T4 [Mass/Vol]1.58106929 ng/dLHigh0.61-1.12 ng/dLWest [place] [employer] Other Thyroid Antibodies TPO+Tg Abon 53-95-2681Bxfpxcc Antibodies TPO+Tg Pq542-16Izpvu [employer]visors Other Thyroid Antibodies TPO+Tg Ab<1.00.0-0.9[place] [employer] Other Thyroid Stimulating Hormoneon 09-46-7692JNC Qn 2.54486643513 m[IU]/LNormal0.45-5.33 u[iU]/mLNCBA PHARMA Other Echocardiogramon 41-07-3741BmhgtmgbwrmvrvuoVxgsaWilliam [place] [address] TRANSTHORACIC ECHOCARDIOGRAM REPORT Patient Name: LAVONNE Bahena Physician: [id number] Shy Wolf [facility] Study Date: 02/26/2023 Referring SHY WOLF Physician: MRN/PID: [id number] PCP: Suhas Garrett MD Accession/Order#: [id number] [facility] Location: Date of : 1935 Fellow: Gender: F Nurse: Admit Date: Cellular Phone Repairer: Sheridan Escalantez RDCS, RVT Height: 157.48 cm CC Report to: Weight: 67.13 kg Study Type: Echocardiogram BSA: 1.68 m2 Blood Pressure: 122 /76 mmHg Diagnosis/ICD: I35.0-Nonrheumatic aortic (valve) stenosis; R01.1-Cardiac murmur, unspecified Indication: HTN, Hyperlipidemia, Overweight, Hypothyroid, Polymyalgia Rheumatica Procedure/CPT: Echo Complete w Full [id number] Study Detail: The following Echo studies were [...] velocity across the aortic valve has increased urlv702 cm/s up to 374 cm/s and aortic [...] mmHg PIEDV: 2.50 m/s PADP: 28.0 mmHg [id number] Shy Wolf MD, FACC Electronically signed on 03/01/2023 at 2:16:46 PM Final NormalSky Ridge Medical CenterOffice Visit (Cardiology)on [id number]-up visitDiagnoses/Problems Assessed Aortic stenosis (424.1) (I35.0) Murmur, cardiac (785.2) (R01.1) Essential hypertension (401.9) (I10) Hyperlipidemia (272.4) (E78.5) Overweight with body mass index (BMI) of 27 to 27.9 in adult (278.02,V85.23) (E66.3,Z68.27) Never smoker Hypothyroidism (244.9) (E03.9) PMR (polymyalgia rheumatica) (725) (M35.3) Orders Aortic stenosis, Murmur, cardiac Echocardiogram; Status:Hold For - Scheduling,Retrospective Authorization; Requested for:[id number]; Essential hypertension, Hyperlipidemia Changed: From Aspirin EC 81 MG TBEC TAKE 1 TABLET To Aspirin 81 MG Oral Tablet Delayed Release TAKE 1 TABLET DAILY Overweight with body mass index (BMI) of 27 to 27.9 in adult Healthy Weight Tips; Status:Complete - Retrospective Authorization; Done: [id number] Some eating tips that can help you lose weight.; Status:Complete - Retrospective Authorization; Done: [id number] SocHx: Never smoker Tobacco Use Screening; Status:Complete; Done: [id number] Patient Instructions Please bring all medicines, vitamins, [...] is being tapered gradually Shy Wolf MD, [facility] Past Medical [facility] Problems History of [...] Multi Vitamin Oral TabletTAKE 1 TABLET DAILY. [place]-3 Fish Oil 1000 MG Oral CapsuleTAKE 1 [...] negative for complaint. Vitals Vital Signs Recorded: 40Kfl4129 11:32AM Heart Rate68, R Radial Zammwndn352, RUE, Sitting Hpxcpooor37, RUE, Sitting Height5 ft 2 in Xujwcd500 lb BMI Gbltnnpnhs92.07 kg/m2 BSA Calculated1.68 Tobacco Useb) No PHQ-2 [...] included)...NormalUH TouchworksTobacco Screening.on 12-24-2022 Adult depression screening [facility]No[facility] [place] Work Phone: Fall risk assessmenta) No falls within the last year [facility] 250 DO Work Phone: Tobacco use status CPHSb) [facility] Work Phone: Complete Blood Count Auto Diffon 55-62-6970Fdpkugbyl (Bld) [#/Vol][id number] 10*3/uLNormal0.0-0.2 10*3/[employer] Other Basophils/100 WBC (Bld)0.700 %. %Yes[employer] Other Eosinophils (Bld) [#/Vol]0.045062826 10*3/uLNormal0.0- 0.45 10*3/[employer] Other Eosinophils/100 WBC (Bld)0.700 %. %[employer] Other Erythrocyte distribution width (RBC) [Ratio]13.500 % Cpsmvb45.9-15.3 %[employer] Other Hematocrit (Bld) [Volume fraction]38.400 %Rvxfyj25.0- 46.4 %[employer] Other Hemoglobin (Bld) [Mass/Vol]12.158079 g/hEWjumhd40.8- 15.4 g/dLNoGlobal [employer] Other Lymphocytes (Bld) [#/Vol]0.331988493 10*3/uLLow1.00- 4.8 10*3/[employer] Other Lymphocytes/100 WBC (Bld)12.600 %. %[employer] Other MCH (RBC) [Entitic mass]33.7000 omRznhbb67.7-34.3 pg [employer] Other MCV (RBC) [Entitic vol]100.4000 zNDkqi56-752 fLGlobal [employer]orum [employer] Other Monocytes (Bld) [#/Vol]0.896020735 10*3/uLNormal0.0- 0.8 10*3/[employer] Other Monocytes/100 WBC (Bld)6.800 %. %[employer] Other Neutrophils (Bld) [#/Vol]5.757250234 10*3/uLNormal1.8- 7.7 10*3/[employer] Other Neutrophils/100 WBC (Bld)79.200 %. %Yes[employer] Other Platelet mean volume (Bld) [Entitic vol]9.4000 fL Normal6.3-10.7 [facility] Other Platelets (Bld) [#/Vol]223 10*3/qUAevett548-511 10*3/[employer] Other RBC (Bld) [#/Vol]3.3973081489 10*6/uLNormal3.60-5.00 10*6/[employer] Other WBC (Bld) [#/Vol]6.319561704 10*3/uLNormal3.8-11.6 10*3/[employer] Other Complete Blood Count Auto Diff6.6 10*3/uLNormal4.5- 11.0 10*3/[employer] Other Complete Blood Count Auto Diff33.6 g/pFLcxafe16.0-35.0 g/dLYesmail Other Complete Blood Count Auto Diff0.1 %Normal0-0.5 %Yes[employer] Other Erythrocyte Sedimentation Rateon 04-27-1572USL (Bld) [Velocity]28 mm/hNormal0-29[place] [employer] Other VASC LAB Carotid Artery Duplex Ultrasoundon 02-21-2022 US.doppler Carotid arteriesMultiCare [facility] [place] Work Phone: COVID Quick Testingon 06-28-4548RhzaejVkoseiboPsfxf [employer] Other Falls Screening (Age 18+)on 04-62-3914Qwku risk assessmenta) No falls within the last year[facility] 250 DO Work Phone: Office Visit (Cardiology)on 25-60-5983Efcnhg-up visit Diagnoses/Problems Assessed Essential hypertension (401.9) (I10) [...] Multi Vitamin Oral TabletTAKE 1 TABLET DAILY. [place] 3 500 CAPSTAKE 1 CAPSULE Daily predniSONE 5 MG Oral Anmosl5LB 7.5MG BY MOUTH ONE DAILY ALTERNATING EVERY OTHER DAY Allergies Medication amoxicillin Hives;; Recorded By: Kayla Orr; 10/17/2021 10:50:34 AM Dilantin CAPS Rash; Recorded By: Kayla Orr; 10/17/2021 10:50:34 AM Fosamax eye pain; Recorded By: Kayla Orr; 10/17/2021 10:50:34 AM Depakote ER TB24 Recorded By: Kayla Orr; 10/17/2021 10:50:34 AM Vitals Vital Signs Recorded: 26Dec2021 11:04AMRecorded: 26Dec2021 11:00AM Heart Rate56, R Yrxzwf10, R Radial Sxuvdkkz335, LUE, Cldtxtn999, RUE Rcwxicare91, LUE, Hxomczn02, RUE Height5 ft 2 in5 ft 2 in Odfoxh137 lb 143 lb BMI Zriwyzesdq07.16 kg/m226.16 kg/m2 BSA Calculated1.661.66 Falls Screening (Age 18+)a) No falls within the last year Signatures Electronically signed by : Shy Wolf MD; Dec 26 2021 4:02PM EST (Author) [facility] TouchworksTobacco Screening.on 16-10-7156Gbbxh [facility]No[facility] Work Phone: Fall risk assessmenta) No falls within the last year [facility] Work Phone: Tobacco use status CPHSb) [facility] Work Phone: Vital Signs Date TimeVital SignValuePerforming RxnrwucclVdamyycp52-47-3688 11:07-0400Body mirnbg432.5 cmShy Wolf MD Work Phone: [facility]08-08-2025 11:07-0400 Body mass index (BMI) [Ratio]27.44 kg/f1YozlnuShy Wolf MD Work Phone: [facility]08-08-2025 11:07-0400 Body mpiuvu81.04 kgShy Wolf MD Work Phone: [facility]08-08-2025 11:07-0400 Diastolic blood wkjgvoam37 mm[Hg]Shy Wolf MD Work Phone: 1(850)973-[address] [place], [place] 0856208-08-2025 11:07-0400 Heart rate60 /minShy Wolf MD Work Phone: 1(851)549-[address] [place], [place] 0856208-08-2025 11:07-0400 Systolic blood wimktfok824 mm[Hg]Shy Wolf MD Work Phone: 1(670)506-[address] [place], [place] 0856207-15-2025 12:30-0400 Body spaupv303.[address]07-15-2025 12:30-0400 Body mass index (BMI) [Ratio]26.52 kg/m[address] 12-21-2024 12:30-0400Body tacbfu29.[address] 12-21-2024 12:30-0400Diastolic blood xbhnrhku15 mm[Hg][address]07-15-2025 12:30-0400Systolic blood zygavhuu282 mm[Hg][address]07-02-2025 13:56-0400Diastolic blood sdoymxyn99 mm[Hg]Reuben Burns SALES [employer] Work Phone: 1(846)514-[address] [place], [place] 0856207-02-2025 13:56-0400 Systolic blood npypgxlm142 mm[Hg]Reuben Burns SALES [employer] Work Phone: 0(686)798-[address] [place], [place] 0856207-01-2025 14:59-0400 Body ydhxsa871.5 cmReuben Burns SALES [employer] Work Phone: 1(238)327-[address] [place], [place] 0856207-01-2025 14:59-0400 Body mass index (BMI) [Ratio]26.45 kg/r0CjdxfReuben Burns SALES [employer] Work Phone: 8(597)109-[address] [place], [place] 0856207-01-2025 14:59-0400 Body .59 kgReuben Burns SALES [employer] Work Phone: 0(126)581-[address] [place], [place] 0856207-01-2025 14:59-0400 Heart rate62 /Torreymurali Burns SALES [employer] Work Phone: [facility]11-08-2024 13:16-0500 Body .5 cmhSy Wolf MD Work Phone: [facility]11-08-2024 13:16-0500 Body mass index (BMI) [Ratio]26.67 kg/q0ZqrdzsShy Wofl MD Work Phone: 5(743)726-[address] [place], [place] 0856211-08-2024 13:16-0500 Body yjcpaf54.13 kgShy Wolf MD Work Phone: 0(461)957-[address] [place], [place] 0856211-08-2024 13:16-0500 Diastolic blood myxdrkls93 mm[Hg]Shy Wolf MD Work Phone: 2(317)299-[address] [place], [place] 0856211-08-2024 13:16-0500 Heart rate62 /minShy Wolf MD Work Phone: 1(215)000-[address] [place], [place] 0856211-08-2024 13:16-0500 Systolic blood rizqtgca510 mm[Hg]Shy Wolf MD Work Phone: 8(737)041-[address] [place], [place] 0856209-04-2024 12:28-0400 Body erdnzk150.[address] [place], [place] 5871209-04-2024 12:28-0400 Body mass index (BMI) [Ratio]27.98 kg/m2Ely [address] [place] [address] 02-11-2024 12:28-0400Body zhzzyn74.[address] [place] [address] 02-11-2024 12:28-0400Diastolic blood kxvrnpih28 mm[Hg][address]09-04-2024 12:28-0400Systolic blood cfrkupyy556 mm[Hg][address]01-26-2024 11:15-0500Body yaqjpo735.48 cmSuhas Garrett Other [place] [employer] Other [id number] 11:15-0500Body mass index (BMI) [Ratio] 28.53 kg/e4Esrsd Kunadan Other [employer] Other 01-26-2024 11:15-0500Body .76 kgCarterraquel Garrett Other [employer] Other 01-26-2024 11:15-0500Diastolic blood wjblcykq20 mm[Hg] Suhas Ugo Other [employer] Other 01-26-2024 11:15-0500Respiratory rate20 /minSuhas Ugo Other [employer] Other 01-26-2024 11:15-0069ImW1% (BldA) [Mass fraction]99 % Suhasraquel Myaoadan Other [employer] Other 01-26-2024 11:15-0500Systolic blood nawignwt013 mm[Hg] Suhas Garrett Other [employer] Other 01-11-2024 11:09-0500Body .5 cmShy Wolf MD Work Phone: [facility]01-11-2024 11:09-0500 Body mass index (BMI) [Ratio]27.98 kg/t3PizkqzShy Wolf MD Work Phone: [facility]01-11-2024 11:09-0500 Body llalkq90.4 kgShy Wolf MD Work Phone: [facility]01-11-2024 11:09-0500 Diastolic blood advzclgw83 mm[Hg]Shy Wolf MD Work Phone: [facility]01-11-2024 11:09-0500 Heart rate60 /minShy Wolf MD Work Phone: [facility]01-11-2024 11:09-0500 Systolic blood mm[Hg]Shy Wolf MD Work Phone: [facility]12-22-2023 11:00-0500 Body yvniym619.48 cmSuhas Garrett Other [employer] Other [phone] 11:00-0500Body mass index (BMI) [Ratio]27.8 kg/e0VikveSuhas Garrett Other [employer] Other 12-22-2023 11:00-0500Body .95 kgSuhas Garrett Other [employer] Other 12-22-2023 11:00-0500Diastolic blood ouscneeb70 mm[Hg] Suhas Garrett Other [employer] Other 12-22-2023 11:00-0500Respiratory rate18 /minSuhas Garrett Other [employer] Other 12-22-2023 11:00-4080KgM8% (BldA) [Mass fraction]96 % Suhas Garrett Other [employer] Other 12-22-2023 11:00-0500Systolic blood fevbhquy221 mm[Hg] Suhas Garrett Other [employer] Other 09-22-2023 10:30-0400Body qfpaxy786.48 cmSuhas Garrett Other [employer] Other 09-22-2023 10:30-0400Body mass index (BMI) [Ratio] 27.98 kg/c2Ppzkz Gaeladan Other [place] [employer] Other 09-22-2023 10:30-0400Body nbvvja47.4 kgCarterraquel Garrett Other [place] [facility] Other 09-22-2023 10:30-0400Diastolic blood wtyulite10 mm[Hg] Suhas Garrett Other [place] [employer] Other 09-22-2023 10:30-0400Respiratory rate16 /minCarterraquel Garrett Other [place] [facility] Other 09-22-2023 10:30-9545IlY2% (BldA) [Mass fraction]91 % Suhas Gaeladan Other [place] [facility] [employer] Other 09-22-2023 10:30-0400Systolic blood ewrjcvdt435 mm[Hg] Suhas Garrett Other [place] [employer] Other 07-18-2023 11:32-0400Body vravnh036.48 cmSuhas Hoffman Ugo Work Phone: 1(725) [phone]-Ubgzo [place] [facility] 250 DO Work Phone: 1(725) 951-156407-18-2023 11:32-0400Body mass index (BMI) [Ratio] 27.07 kg/p7Fmtro P Ugo Work Phone: mp120-0340XU-Mcuoq [place] [facility] 250 DO Work Phone: 1(166) 192-883307-18-2023 11:32-0400Body surface area Derived from formula1.68 x8Ocmgs P Gaels Work Phone: mp162-7716TM-Knxjf [facility] 250 DO Work Phone: 1(959) 426-989607-18-2023 11:32-0400Body uwsuzx40.13 kgSuhas Mayoadan Work Phone: mp076-3855JJ-Igvgp [facility] 250 DO Work Phone: 1(410) 187-640507-18-2023 11:32-0400Diastolic blood ldauebvt25 mm[Hg] Suhas Garrett Work Phone: mp765-8933BC-Qchas [facility] 250 DO Work Phone: 1(634) [phone] 11:32-0400Heart rate68 /minSuhas Mayos Work Phone: mp806-1421AZ-Dkyjv [facility] 250 DO Work Phone: 1(971) 528-668807-18-2023 11:32-0400Systolic blood wjxmlyxn323 mm[Hg] Suhas Garrett Work Phone: mp342-2766HT-Qzgnc [facility] 250 DO Work Phone: 1(423) 711-480006-30-2023 10:30-0400Body .48 cmSuhas Garrett Other [employer] Other 06-30-2023 10:30-0400Body mass index (BMI) [Ratio] 27.98 kg/m9QrxpxSuhas Garrett Other [employer] Other 06-30-2023 10:30-0400Body urcaci31.4 kgSuhas Garrett Other [employer] Other 06-30-2023 10:30-0400Diastolic blood xeyrjowl43 mm[Hg] Suhas Garrett Other [employer] Other 06-30-2023 10:30-0400Respiratory rate16 /minSuhas Garrett Other [employer] Other 06-30-2023 10:30-4838GxO8% (BldA) [Mass fraction]98 % Suhas Garrett Other [employer] Other 06-30-2023 10:30-0400Systolic blood lpqradus695 mm[Hg] Suhasraquel Garrett Other [employer] Other 04-14-2023 11:45-0400Body qoxzzi127.48 cmSuhas Garrett Other [employer] Other 04-14-2023 11:45-0400Body mass index (BMI) [Ratio] 26.34 kg/q4ZbgnjSuhas Garrett Other [employer] Other 04-14-2023 11:45-0400Body rcuiew67.32 kgSuhas Garrett Other [employer] Other 04-14-2023 11:45-0400Diastolic blood umjeidet39 mm[Hg] Suhas Garrett Other [employer] Other 04-14-2023 11:45-0400Respiratory rate16 /minSuhas Garrett Other [employer] Other 04-14-2023 11:45-7207DbO9% (BldA) [Mass fraction]98 % Suhasraquel Garrett Other [employer] Other 04-14-2023 11:45-0400Systolic blood mm[Hg] Suhasraquel Mayoadan Other [employer] Other 02-13-2023 11:30-0500Body aovzxe875.48 cmSuhas Garrett Other [employer] Other 02-13-2023 11:30-0500Body mass index (BMI) [Ratio] 26.85 kg/q5CjyodSuhas Garrett Other [employer] Other 02-13-2023 11:30-0500Body lekyiz43.59 kgCarterraquel Garrett Other [employer] Other 02-13-2023 11:30-0500Diastolic blood btfelcmy19 mm[Hg] Suhas Ugo Other [employer] Other 02-13-2023 11:30-0500Respiratory rate16 /minBryraquel Garrett Other [employer] Other 02-13-2023 11:30-9954YjA0% (BldA) [Mass fraction]98 % Suhas Garrett Other [employer] Other 02-13-2023 11:30-0500Systolic blood zmisdnbq155 mm[Hg] Suhas Garrett Other [employer] Other 11-09-2022 11:45-0500Body .48 cmCarterraquel Garrett Other [employer] Other 11-09-2022 11:45-0500Body mass index (BMI) [Ratio] 26.88 kg/y1Mtmuq Kuns Other [employer] Other 11-09-2022 11:45-0500Body uwepiv32.68 kgCartreraquel Garrett Other [employer] Other 11-09-2022 11:45-0500Diastolic blood jnmbajfw22 mm[Hg] Suhas Ugo Other [employer] Other 11-09-2022 11:45-0500Respiratory rate16 /minSuhas Garrett Other [employer] Other 11-09-2022 11:45-7798YrV2% (BldA) [Mass fraction]99 % Suhas Garrett Other [employer] Other 11-09-2022 11:45-0500Systolic blood bjovmiia325 mm[Hg] Suhas Garrett Other [employer] Other 09-16-2022 10:15-0400Body .48 cmSuhas Garrett Other [employer] Other 09-16-2022 10:15-0400Body mass index (BMI) [Ratio] 27.07 kg/b7Jcroq Kunadan Other [employer] Other 09-16-2022 10:15-0400Body wwopge56.13 kgCarterraquel Garrett Other [employer] Other 09-16-2022 10:15-0400Diastolic blood dcimvhsn32 mm[Hg] Suhas Garrett Other [employer] Other 09-16-2022 10:15-0400Respiratory rate16 /minSuhas Garrett Other [employer] Other 09-16-2022 10:15-1424ReF9% (BldA) [Mass fraction]97 % Suhas Garrett Other [employer] Other 09-16-2022 10:15-0400Systolic blood wyghygsc500 mm[Hg] Suhas Garrett Other [employer] Other 09-15-2022 10:45-405815 1Bprimo Garrett Work Phone: [phone][place] [address] [place] Work Phone: Comment on above:[id number] 15:45-0400Body wbpwir628.48 cmSuhas Garrett Other [employer] Other 09-08-2022 15:45-0400Body mass index (BMI) [Ratio]26.7 kg/e2YoyypSuhas Garrett Other [employer] Other 09-08-2022 15:45-0400Body uckemz37.23 kgSuhas Garrett Other [employer] Other 09-08-2022 15:45-0400Diastolic blood mm[Hg] Suhas Garrett Other [employer] Other 09-08-2022 15:45-0400Respiratory rate16 /minSuhas Garrett Other [employer] Other 09-08-2022 15:45-8050RcV1% (BldA) [Mass fraction]96 % Suhas Garrett Other [employer] Other 09-08-2022 15:45-0400Systolic blood inxgvcrw170 mm[Hg] Suhas Garrett Other [place] [employer] Other 07-20-2022 11:04-0400Body gyfoze380.48 cmSuhas Garrett Work Phone: [phone]-Nyvgf [facility] [address] DO Work Phone: 1(952) 514-719607-20-2022 11:04-0400Body mass index (BMI) [Ratio] 26.16 kg/u2MmwyfSuhas Garrett Work Phone: mp626-9832FE-Rjdvo [facility] [address] DO Work Phone: 1(457) 626-277407-20-2022 11:04-0400Body surface area Derived from formula1.66 x6RqhtwShuas Garrett Work Phone: mp972-5943AY-Eeict [facility] [address] DO Work Phone: 1(287) 437-424707-20-2022 11:04-0400Body euwbxc99.86 kgSuhas Garrett Work Phone: mp894-4239IK-Vawbu [facility] [address] DO Work Phone: 1(836) 620-790807-20-2022 11:04-0400Diastolic blood npucbwuk71 mm[Hg] Suhas Garrett Work Phone: mp285-8646WD-Bxooa [facility] 250 DO Work Phone: 1(970) 914-844507-20-2022 11:04-0400Heart rate56 /minSuhas Garrett Work Phone: mp155-2384PI-Kjidk [facility] [address] DO Work Phone: 1(526) [phone] 11:04-0400Systolic blood qzexmsuy144 mm[Hg] Suhas Garrett Work Phone: mp241-7315JT-Riepq [facility] [address] DO Work Phone: 1(799) 266-517807-20-2022 11:00-0400Diastolic blood mtrbwjin19 mm[Hg] Suhas Garrett Work Phone: 1(871) [phone]-Flmgs [facility] [address] DO Work Phone: 1(761) 737-348907-20-2022 11:00-0400Systolic blood pwtlupwv675 mm[Hg] Suhas Garrett Work Phone: 1(928) [phone]-Ieere [facility] 250 DO Work Phone: 1(960) 205-506507-07-2022 11:39-0400Diastolic blood ciwjukuf79 mm[Hg] Suhas Garrett Work Phone: 1(300)[address] [place] [address] Work Phone: 1(839) 174-241607-07-2022 11:39-0400Systolic blood jwkeuhbc111 mm[Hg] Suhas Garrett Work Phone: 1(771)[address] [place] [address] Work Phone: 1(806) 328-191307-07-2022 11:22-0400Diastolic blood gtrybrtu90 mm[Hg] Suhas Garrett Work Phone: 1(149)[address] [place] [address] Work Phone: 1(692) 640-727107-07-2022 11:22-0400Systolic blood sjizmbaf051 mm[Hg] Suhas Garrett Work Phone: 1(883)[address] [place] [address] Work Phone: 1(856) 951-504607-07-2022 11:17-0400Body nxftxy650.48 cmSuhas Garrett Work Phone: 1(210)[address] [place] [address] Work Phone: [phone]822 11:17-0400Body mass index (BMI) [Ratio] 26.52 kg/d2SfqqvSuhas Garrett Work Phone: 1(890)[facility]31[facility] Work Phone: [phone]65 11:17-0400Body surface area Derived from formula1.67 u4KcmjsSuhas Garrett Work Phone: 1(590)[address] [place] [address] Work Phone: 1(680) 841-649307-07-2022 11:17-0400Body xpsois62.77 kgSuhas Garrett Work Phone: 1(419)[address] [place] [address] Work Phone: 1(179) 323-444607-07-2022 11:17-0400Diastolic blood rdojwfvf95 mm[Hg] Suhas Garrett Work Phone: [facility] Work Phone: 1(455) 501-705707-07-2022 11:17-0400Heart rate60 /minSuhas Garrett Work Phone: [facility] Work Phone: 1(669) [phone] 11:17-0400Systolic blood livhnebi457 mm[Hg] Suhas Garrett Work Phone: [facility] Work Phone: 1(241) [phone] 13:30-0400Body wzqiyg477.48 cmSuhas Garrett Other [employer] Other 04-25-2022 13:30-0400Body mass index (BMI) [Ratio] 26.34 kg/w6LwaitSuhas Garrett Other [employer] Other 04-25-2022 13:30-0400Body sxgnwy35.32 kgSuhas Garrett Other [employer] Other 04-25-2022 13:30-0400Diastolic blood quhpytfm84 mm[Hg] Suhas Garrett Other [employer] Other 04-25-2022 13:30-0400Respiratory rate18 /minSuhas Garrett Other [employer] Other 04-25-2022 13:30-1666DhO9% (BldA) [Mass fraction]99 % Suhas Garrett Other [employer] Other 04-25-2022 13:30-0400Systolic blood wrtdvenw629 mm[Hg] Suhas Garrett Other [employer] Other 02-24-2022 13:30-0500Body shgqae414.48 cmCarterraquel Garrett Other [employer] Other 02-24-2022 13:30-0500Body mass index (BMI) [Ratio] 26.52 kg/j6Uetvx Kunadan Other [employer] Other 02-24-2022 13:30-0500Body .77 kgCarterraquel Garrett Other [employer] Other 02-24-2022 13:30-0500Diastolic blood kfiosnhu78 mm[Hg] Suhas Garrett Other [employer] Other 02-24-2022 13:30-0500Respiratory rate16 /minSuhas Garrett Other [employer] Other 02-24-2022 13:30-1192MhM3% (BldA) [Mass fraction]99 % Suhas Garrett Other [employer] Other 02-24-2022 13:30-0500Systolic blood mm[Hg] Suhas Ugo Other [employer] Other 11-18-2021 13:30-0500Body tkwupy929.48 cmSuhas Garrett Other [employer] Other 11-18-2021 13:30-0500Body mass index (BMI) [Ratio] 25.97 kg/z4HegorSuhas Garrett Other [employer] Other 11-18-2021 13:30-0500Body .41 kgSuhas Garrett Other [employer] Other 11-18-2021 13:30-0500Diastolic blood mm[Hg] Suhas Garrett Other [employer] Other 11-18-2021 13:30-0500Respiratory rate17 /minSuhas Garrett Other [employer] Other 11-18-2021 13:30-1203ToB8% (BldA) [Mass fraction]98 % Suhas Garrett Other [employer] Other 11-18-2021 13:30-0500Systolic blood mm[Hg] Suhas Garrett Other [employer] Other Encounters Encounter DateEncounter TypeCare ProviderFacilityStart: 02-14-2025 End: 72-38-5024gmkzbclqvhZulkhlbJorge Weston MDFacility:[facility] [place] Start: 01-14-2025 End: 44-35-1492Crniut outpatient visit 25 minutesShy Wolf MD Work Phone: [facility]Comment on above:Nonrheumatic aortic valve stenosis (Primary Dx); 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; Hyperlipidemia, unspecified hyperlipidemia type; PMR (polymyalgia rheumatica) (Multi); Hypothyroidism, unspecified type; BMI 27.0-27.9,adult; Never smoked any substance; OverweightStart: 01-14-2025 End: 93-82-9483zwlduumzdbMIXAER M IBRMat[facility] AmbulatoryStart: 12-21-2024 End: 34-72-0827Ehxrdvtfaa hospital visit by Julia Baker [facility]Comment on above:Aortic valve stenosis, etiology of cardiac valve disease unspecifiedStart: 12-21-2024 End: 89-37-1402mfxujusgrzQGVDKUSouthview Medical Centertart: 12-07-2024 End: 88-74-3517Nwbrqk outpatient visit 15 Silkemayo Gibbs [place] BURGER Work Phone: uh [facility] PartnersComment on above: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 (Primary Dx); BMI 26.0-26.9,adultStart: 12-07-2024 End: 18-22-3237lnbkfiklkmPLCXYCritical access hospital AmbulatoryStart: 10-25-2024 End: 72-54-1372abaywrpzfyNboccsf Vytautas Giedraitis MDFacility:[facility] [place] Start: 09-13-2024 End: 08-81-7439btypypnoseSzgkibb Vytautas Giedraitis MDFacility:[facility] [place] Start: 07-28-2024 End: 26-13-8932ylrhssqbsoUwbth UgoFacility:[facility] Start: 05-25-2024 End: 90-73-7631fbquhhyydeBhbsg KunsFaregional medical center:[facility] Start: 04-16-2024 End: 22-71-0776Nqhucu outpatient visit 25 minutesShy Wolf MD Work Phone: uh [facility] PartnersComment on above:Aortic valve stenosis, etiology of cardiac valve disease unspecified (Primary Dx); Essential hypertension; Hyperlipidemia, unspecified hyperlipidemia type; Never smoked any substance; BMI 26.0-26.9,adult; Hypothyroidism, unspecified typeStart: 04-16-2024 End: 58-07-7152oshifgykwbARUFVA [facility] AmbulatoryStart: 02-11-2024 End: 05-63-5454Euoketlzoe hospital visit by Julia Baker Echo[facility]asc [facility]Com[facility] on above:Nonrheumatic aortic valve stenosis; Aortic valve stenosis, etiology of cardiac valve disease unspecifiedStart: 02-11-2024 End: 25-72-4053ywvtjvgcgyAFPUNR M Berger Hospitaltart: 10-14-2023 End: 42-03-4865kqrinupvifJstsq KunsFacility:[facility] Start: 09-03-2023 End: 66-66-1439uwsznilgmiUqeyj GaelsFacility:[facility] Start: 07-18-2023 End: 08-84-7956mxkvazemcvWebmi Gaels Other [employer] Other Start: 17-42-2163Ejqnfdngh encounterBryraquel MayosFPG [facility] [place]Start: 07-15-2023 End: 38-69-6260uqkwzxwyscTdeew Kuns Other [employer] Other Start: 44-41-2591Lkraqkuoo encounterBryraquel MayosFPG [facility] [place]Start: 07-10-2023 End: 54-91-0905ywpqhqdecaNbomr Kuns Other [employer] Other Start: 61-78-2513Yyjnuduyn encounterBryraquel MayosFPG [facility] [place]Start: 07-07-2023 End: 95-22-4605envlpigcmcWnjsl Kuns Other [employer] Other Start: 00-72-6407Ogmifixzn encounterBryraquel MayosFPG [facility] [place]Start: 07-04-2023 End: 50-60-7932jwjncgapznIwnhb Kuns Other [employer] Other Start: 95-68-6108Fvdzvb outpatient visit 15 minutes Suhas MayosFPG [facility] [place]aliaStart: 06-19-2023 End: 81-82-2828ciklwhocvgKneji Kuns Other [employer] Other Start: 72-87-6481Djnuekkqf encounterSuhas MayoCory [facility] [place]Start: 06-19-2023 End: 13-55-8076Usvkmc outpatient visit 25 minutesShy Wolf MD Work Phone: [facility] HospitalComment on above:Aortic valve stenosis, etiology of cardiac valve disease unspecified; Essential hypertension; Hyperlipidemia, unspecified hyperlipidemia type; Never smoked any substanceStart: 05-30-2023 End: 02-42-7536gglotxsjsxWoujz Kuns Other [employer] Other Start: 94-83-1569Lbfbvh outpatient visit 25 minutes Suhas MayoadanLEYDI [facility] Medicine [place]Start: 05-28-2023 End: 21-32-8376arkvrzebatVnpao Kuns Other [employer] Other Start: 16-49-0872Rrhmbgrwl encounterSuhas MayoDereckShravan [facility] [place]Start: 04-23-2023 End: 39-26-6513ipbttbjiisXtnzs Kuns Other [employer] Other Start: 62-83-7753Tzwduuged encounterSuhas MayoDereckShravan [facility] [place]Start: 04-18-2023 End: 03-37-3419qcxpnlolsfQxxla Kuns Other [employer] Other Start: 28-59-7726Dlzagpxls encounterSuhas MayoadanFPG [facility] [place]aliaStart: 77-24-3732Ywddt UpdateSuhas Garrett Work Phone: [phone]-OvkcqMelrose [facility] 250 DO Work Phone: Start: 02-28-2023 End: 47-44-6516iptzfpinirIqylf Kuns Other [employer] Other Start: 06-31-6286Cubbxp outpatient visit 15 minutes Suhas GaelCory [facility] [place]aliaStart: 84-15-2961iriltvnwdcQa. Suhas GarrettPeacehealth St. Joseph Medical Centerity:9844Start: 01-27-2023 End: 94-05-7301pftjpsrbskKeozt Kuns Other [employer] Other Start: 14-70-5919Yejzgknmx encounterBryraquel Sommers [facility] [place]aliaStart: 33-15-1729Ecqbdo outpatient visit 25 minutesSuhas Garrett Work Phone: [phone]-SnraiAsh[place] [address] DO Work Phone: Start: 07-84-5869tykylbcemsCd. Shy Agosto [facility] Facility:[id number]: 12-06-2022 End: 57-83-7052ayuwhjwsqaPznsk Kuns Other [employer] Other Start: 19-79-5998Xmhfbd outpatient visit 15 minutes Suhas GaelCory [facility] [place]aliaStart: 09-20-2022 End: 06-50-5830yueqvhnogwPsnjp Kuns Other [employer] Other Start: 59-45-8542Dvsgke outpatient visit 15 minutes Suhas GaelCory [facility] [place]Start: 08-14-2022 End: 14-90-7536ggrdhmqrwnVnvqx Kuns Other [employer] Other Start: 93-65-3203Uhsoqfzci encounterBryraquel GaelCory Family [facility] [place]aliaStart: 07-22-2022 End: 52-15-5266iulfqwmbnpBrtaj Kuns Other [employer] Other Start: 71-22-2479Zmgmea outpatient visit 15 minutes Suhas Sommers [facility] [place]Start: 04-17-2022 End: 05-57-4745diqxppksjwEarcn Kuns Other [employer] Other Start: 24-98-8910Wnjjxe outpatient visit 15 minutes Suhas ManciniG [facility] [place]Start: 04-10-2022 End: 85-37-3327svcudjgfozWlrre Kuns Other [employer] Other Start: 39-66-1671Honeratzk encounterBryraquel GarrettFPG [facility] [place]Start: 04-03-2022 End: 72-41-1383ixmbbxtuhrMcphd Kuns Other [employer] Other Start: 68-96-9878Xcbjowjnv encounterBryraquel GarrettFPG [facility] [place]Start: 04-02-2022 End: 38-00-9085awdwmuvskcNzesy Kuns Other [facility] [employer] Other Start: 64-95-2788Ronbfvpfs encounterBryraquel GarrettFPG [facility] [place]Start: 02-26-2022 End: 76-20-5351bkcdjdyxwrKctnf Kuns Other [facility] [employer] Other Start: 96-36-7305Coejhpszt encounterBryraquel GarrettFPG [facility] [place]aliaStart: 02-25-2022 End: 48-62-9934cpciooozcsSqxbg Kuns Other [employer] Other Start: 32-79-5769Lcabsgvxw encounterBryraquel MayosFPG [facility] [place]Start: 02-22-2022 End: 06-96-5727ydrkqidtauMwtwj Kuns Other [facility] Other Start: 09-84-0228Aadrrc outpatient visit 25 minutes Suhas MayoadanLEYDI [facility] [place]Start: 10-50-9716Zlmhybo encounter procedureSuhas Garrett Work Phone: [phone]-OefkpTwo [facility] [address] [place] Work Phone: Start: 02-20-2022 End: 74-49-9084jvqfemxdpbQMLONBK M MANONFacility:Z9Uugie: 02-14-2022 End: 83-45-6869tvsplqrykkNdyjz Kuns Other [facility] Other Start: 10-24-4544Aodvzc outpatient visit 25 minutes Suhas Sommers [facility] [place]Start: 01-11-2022 End: 25-44-2226hqsezkwhnrFvvfa Kuns Other [facility] Other Start: 28-67-5877Mxhhcfx evaluation of patient and reportBryraquel MayoadanLEYDI [facility] [place]aliaStart: 99-32-9851Tldwyvhkh encounter Suhas GaeladanLEYDI [facility] [place]aliaStart: 58-54-3175Cddoha outpatient visit 10 minutesSuhas Garrett Work Phone: [phone]-SkiamTwo Twelve Medical Center 250 DO Work Phone: Start: 43-02-4160kycznvsurlKz. Bryan Patrick Kuns Facility:[id number]: 12-20-2021 End: 02-20-5593iocrmijccyBolso Kuns Other [employer] Other Start: 85-14-7864Nafaktpek encounterSuhas MayoadanLEYDI [facility] [place]Start: 96-41-1147Wpefqq outpatient visit 25 minutesSuhas Garrett Work Phone: [facility] Work Phone: Start: 11-02-2021 End: 25-59-4080iatlzpaunzXzrde Kuns Other [employer] Other Start: 99-28-4093Ihwspsngl encounterBryraquel GarrettFPG [facility] [place]Start: 10-01-2021 End: 77-45-9146saoffbpazeZwmub Kuns Other [employer] Other Start: 80-18-4801Sitpmp outpatient visit 15 minutes Suhas GarrettFPG [facility] [place]aliaStart: 09-10-2021 End: 57-82-8472hijcxbxnbnUxbpn Kuns Other [employer] Other start: 10-98-3275Ogynknnfh encounterBryraquel GarrettFPG [facility] [place]Start: 08-20-2021 End: 61-15-9801euojznnwpjNmqhg Kuns Other [employer] Other Start: 97-46-6232Oqosblhvz encounterBryraquel GarrettFPG [facility] [place]Start: 08-02-2021 End: 18-61-9734hgdhxgdyndKlbuw Kuns Other [employer] Other Start: 59-32-4794Cdimum outpatient visit 15 minutes Suhas GarrettFPG [facility] [place]Start: 07-25-2021 End: 23-18-7876bzcagxhrueUrifo Kuns Other [employer] Other Start: 16-77-6051Trthnvrao encounterBryraquel GarrettFPG [facility] [place]Start: 05-08-2021 End: 49-76-5729girenxpvrhDcdnt Kuns Other [employer] Other start: 21-20-6503Lpgurrejy encounterCarterraquel Matthieu [facility] [place]aliaStart: 04-26-2021 End: 42-53-3820xhlfqtrjrmLojtu Kuns Other [facility] [employer] Other Start: 43-66-8079Swfknp outpatient visit 25 minutes Suhas Sommers [facility] [place] Procedures DateProcedureProcedure Detail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Start: 45-32-1929[facility]d w/wom-mode compl spec&colr Clayton Wlof MD Work Phone: Start: 82-32-8466FdmhudakrrrtjwonOlnix P Kuns Work Phone: Start: 04-70-4728CclvqjttgdepvknlRsmah P Kuns Work Phone: AppendectomyBryan P Kuns Work Phone: CholecystectomyBryan P Kuns Work Phone: Operation on ovaryBryan P Kuns Work Phone: ThyroidectomyBryan P Kuns Work Phone: Total colonoscopyBryan P Kuns Work Phone: Plan of Treatment DateCare ActivityDetailAuthorStart: 71-79-6899ZGcA/Tdap/Td Vaccines (2 - Td or Tdap)DTaP/Tdap/Td Vaccines (2 - Td or Tdap)[facility] Start: 01-26-2026 End: 67-33-4652Exmrfit encounter gwjrvauqa69/20/2026 11:00 AM EDT Office Visit [facility] [address] [facility] [address] [place] [address] Shy Wolf MD [address] [facility], [address] [place] [address] [facility]Start: 13-12-5331HlojpjkorosaofvwJdeakhfgbislzh [facility]: 12-20-2025 End: 38-80-5348Tdrnept encounter giuvzpsci74/14/2026 10:45 AM EDT Appointment [place] [address] [facility] [address] [place] [phone] [facility]Start: 12-14-2025 End: 86-03-8635GW Heart TransthoracicTransthoracic Echo Complete Echocardiography Routine Nonrheumatic aortic valve stenosis Expected: 12/14/2025 (Approximate), Expires: 01/14/2027[facility] Service Area Work Phone: Comment on above:Expected: 12/14/2025 (Approximate), Expires: 01/14/2027Start: 03-01-2026Medicare Annual Wellness VisitMedicare Annual Wellness Visit (AWV)[facility]: 02-10-2025 EchocardiographyEchocardiogramUnFirelands [facility]: 02-07-2025 Influenza vaccinationInfluenza Vaccine (#1)[facility] Start: 01-14-2025 End: 32-12-9028XF Heart TransthoracicTransthoracic Echo Complete Echocardiography Routine Aortic valve stenosis, etiology of cardiac valve disease unspecified Expected: 01/14/2025 (Approximate), Expires: 04/16/2026[facility] Service Area Work Phone: Comment on above:Expected: 01/14/2025 (Approximate), Expires: 04/16/2026Start: 01-14-2025 End: 22-47-0947Dqhvcqu encounter /08/2025 11:00 AM EDT Office Visit [address] [place] [phone] Shy Wolf MD [address] [facility], [address] [place] [address] [facility]: 12-21-2024 End: 72-28-0837Xgfkybh encounter rgyzytbrp98/15/2025 12:30 PM EDT Appointment [place] [address] [place] [address] [place] [phone] [facility]: 04-04-5352ZRDZX-19 Vaccine ( season)COVID-19 Vaccine ( season)[facility]: 03-16-2024 End: 17-61-6817Jfhtnoa encounter hftbefmts26/08/2024 11:20 AM EDT Office Visit [address] [phone] Shy Wolf MD [address] [facility] [address], [address] [address] [facility]: 03-32-0628Srwdyvqpx for osteoporosisBone Density [facility]: 02-11-2024 End: 57-96-0104Kbdmees encounter iizoxrfan42/04/2024 12:30 PM EDT Appointment [address] [phone] [facility]: 90-22-1488PRREC-19 Vaccine ( season)COVID-19 Vaccine ( season)[facility]: 02-08-2024 Influenza vaccinationInfluenza Vaccine (#1)[facility] Start: 02-08-2024 End: 55-25-8940SC Heart TransthoracicTransthoracic Echo (TTE) Complete Echocardiography Routine Aortic valve stenosis, etiology of cardiac valve disease unspecified Expected: 02/08/2024 (Approximate), Expires: 06/19/2025[facility] Service Area Work Phone: Comment on above:Expected: 02/08/2024 (Approximate), Expires: 06/19/2025Start: 46-68-4787SYX, Provider: Shy Wolf, Status: Pen, Time: 11:00 AMFUV, Provider: Shy Wolf, Status: Pen, Time: 11:00 [place]MAsh[place] [address] DO Work Phone: Start: 01-55-5892AEGMB-19 Vaccine (5 - Moderna series) COVID-19 Vaccine (5 - Moderna series)[facility]: 03-65-5004DGAK, Provider: SAMUEL HHVI ULTRASOUND 01,[id number], Status: Pen, Time: 10:45 AMECHO, Provider: SAMUEL YII ULTRASOUND 01,[id number], Status: Pen, Time: 10:45 [facility]uel 250 DO Work Phone: Start: 78-57-9459MHC, Provider: Shy Wolf, Status: Pen, Time: 11:20 AMFUV, Provider: Shy Wolf, Status: Pen, [facility]: [facility]:20 [facility] Work Phone: Start: 07-33-1856TNEEGQM, Provider: SAMUEL YII ULTRASOUND 01,[id number], Status: Pen, Time: 12:30 PMCAROTID, Provider: SAMUEL HHVI ULTRASOUND 01,[id number], Status: Pen, Time: 12:30 PM[facility] Work Phone: start: 43-76-5052XRRO, Provider: SAMUEL HHVI ULTRASOUND 01,[id number], Status: Pen, Time: 10:45 AMECHO, Provider: SAMUEL HHVI ULTRASOUND 01,[id number], Status: Pen, Time: 10:45 [facility] Work Phone: start: 61-22-0655NIUPIMD, Provider: SAMUEL HHVI ULTRASOUND 01,[id number], Status: Pen, Time: 2:30 PMCAROTID, Provider: SAMUEL HHVI ULTRASOUND 01,[id number], Status: Pen, Time: 2:30 PM[facility] Work Phone: start: 71-07-8032PVBE, Provider: SAMUEL HHVI ULTRASOUND 01,[id number], Status: Pen, Time: 1:30 PMECHO, Provider: SAMUEL HHVI ULTRASOUND 01,[id number], Status: Pen, Time: 1:30 PM[facility] Work Phone: Start: 04-99-8027XQRLNGLZ, Provider: MAGDA DANIEL SECURITY OPERATIONS MANAGER 1,[id number], Status: Pen, Time: 11:00 AMNURSEVST, Provider: MAGDA DANIEL SECURITY OPERATIONS MANAGER 1,[id number], Status: Pen, Time: 11:00 AM[facility] Work Phone: Start: 83-98-7952Epoifyixn B Vaccines (1 of 3 - Risk 3-dose series)Hepatitis B Vaccines (1 of 3 - Risk 3-dose series)[facility]: 29-34-9328Ljxlcfucx A Vaccines (1 of 2 - Risk 2- dose series)Hepatitis A Vaccines (1 of 2 - Risk 2-dose series)[facility]: 96-43-2042Xvomxtawhf measurementCreatinine Level [facility]: 12-47-1497Ddmpq panelLipid Panel [facility]: 03-04-1937Medicare Annual Wellness Visit Medicare Annual Wellness Visit (AWV)[facility]: 05-68-3049Bywlasgda measurementPotINTEGRIS [facility] Start: 15-73-5669Emiculm stimulating hormone measurementTSHoldenville General Hospital – HoldenvilleECG 12 LeadECG 12 Lead ECG Routine 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 Ordered: 12/08/2024[facility] Area Work Phone: Comment on above:Ordered: 12/08/2024 End: 69-67-1098RN Heart TransthoracicMohawk Valley General Hospital Work Phone: Comment on above:Once for 1 Occurrences starting 02/11/2024 until 02/11/2024 Immunizations Immunization DateImmunizationNotesCare EkkjxqflCcyqtarb49-07-1935Khrqfekgyrei conjugate vaccine, 20-valent (PREVNAR 20)Shy Wolf MD Work Phone: [facility] Work Phone: [phone] COVID-19 vaccine, 12 years and older (50mcg/0.5mL)(Spikevax)Shy Wolf MD Work Phone: [facility] Work Phone: [phone] trivalent influenza vaccine, adjuvanted, preservative freeShy Wolf MD Work Phone: [facility] Work Phone: [phone] virus vaccine, unspecified formulationReuben Burns SALES [employer] Work Phone: [facility] Work Phone: [phone] SYNCYTIAL VIRUS (RSV), ELIGIBLE PTS, 0.5 ML (ABRYSVO)Shy Wolf MD Work Phone: [facility] Work Phone: [phone], Seasonal, Quadrivalent, AdjuvantedShy Wolf MD Work Phone: [facility] Work Phone: [phone] COVID-19 vaccine, 12 years and older (50mcg/0.5mL)(Spikevax)Shy Wolf MD Work Phone: [facility] Work Phone: [phone] virus vaccine, unspecified formulationEly 2[facility] Work Phone: [phone] COVID-19 Bivalent 50 MCG/0.5ML Intramuscular SuspensionSuhas Garrett Work Phone: [facility] 9[address] DO Work Phone: [phone] Quadrivalent 0.5 ML Intramuscular Prefilled SyringeBryraquel P Ugo Work Phone: [phone]-LhjqkTwo [facility] Medical Center 250 DO Work Phone: [phone], seasonal, injectableBryan Kuns Other [facility] [employer] Other 06719757-24-2317Zdeaksd COVID-19 Vaccine 100 MCG/0.5ML Intramuscular SuspensionBryan P Kuns Work Phone: [facility] Work Phone: [phone] COVID-19 Vaccine 100 MCG/0.5ML Intramuscular SuspensionBryan P Kuns Work Phone: [facility] Work Phone: [phone], seasonal, injectableBryan Kuns Other [employer] Other 03890040-20-0321Ffwyais COVID-19 Vaccine 100 MCG/0.5ML Intramuscular SuspensionBryan P Kuns Work Phone: [facility] Work Phone: [phone]okt COVID-19 Vaccine 100 MCG/0.5ML Intramuscular SuspensionBryan P Kuns Work Phone: [facility] Work Phone: [phone] polysaccharide vaccine, 23 valentBryan Gaels Other [facility] [employer] Other 09-632517-94-5917Bqbnwpmy trivalent influenza vaccine, adjuvanted, preservative freeBryan P Kuns Work Phone: [facility] Work Phone: [phone], seasonal, injectableBryan Kuns Other [employer] Other 09-583888-80-1679zatczobyh virus vaccine, unspecified formulationBryan P Kuns Work Phone: [facility] Work Phone: [phone]bljta, seasonal, injectableBryan Kuns Other [employer] Other 11-094414-11-1024hnkges vaccine recombinantBryan Kuns Other [employer] Other 10-775108-87-9291rcjrdousl, high dose seasonal, preservative-freeBryan P Kuns Work Phone: [facility] Work Phone: [phone], seasonal, injectableBryan Kuns Other [employer] Other 08987393-05-3841tpnidi vaccine recombinantBryan Kuns Other [employer] Other 12193627-20-5146rmmyjiv toxoid, reduced diphtheria toxoid, and acellular pertussis vaccine, adsorbedBryan Kuns Other [employer] Other 10412740-53-9660Ymhpzzph trivalent influenza vaccine, adjuvanted, preservative freeShy Wolf MD Work Phone: [facility] Work Phone: [phone] virus vaccine, unspecified formulationBryan P Kuns Work Phone: [facility] Work Phone: [phone] virus vaccine, unspecified formulationBryan P Kuns Work Phone: [facility] Work Phone: [phone]hkokq trivalent influenza vaccine, adjuvanted, preservative freeBryan P Kuns Work Phone: [facility] Work Phone: [phone]boiwkjzw conjugate vaccine, 13 valent Shy Wolf MD Work Phone: [facility] Work Phone: [phone]bbtoe conjugate vaccine, 13 valent Suhas Gaels Other [facility] [employer] Other 10-981325-67-7955Kqhxlnne trivalent influenza vaccine, adjuvanted, preservative freeCarteran P Gaels Work Phone: [facility] Work Phone: [phone]tiabgtsd virus vaccine, unspecified formulationBryan P Kuns Work Phone: [facility] Work Phone: [phone]hynbpaehiqv conjugate vaccine, 13 valent Suhas Dalton Garrett Work Phone: [facility] Work Phone: [phone], injectable, quadrivalent, contains preservativeBryan P Kuns Work Phone: [facility] Work Phone: [phone]nvsvouzy virus vaccine, unspecified formulationBryan P Kuns Work Phone: [facility] Work Phone: [phone]jojrzgl, seasonal, injectable, preservative freeCarteran P Kuns Work Phone: [facility] Work Phone: [phone]yepejzrk virus vaccine, whole virusCarteran P Gaels Work Phone: [facility] Work Phone: [phone]uqtmthwl, seasonal, injectableBryan P Kuns Work Phone: [facility] Work Phone: [phone]sdkgxzcz virus vaccine, unspecified formulationCarteran P Kuns Work Phone: [facility] Work Phone: [phone]csikjpcl, injectable, quadrivalent, contains preservativeBryan Kuns Other [employer] Other 01410460-79-3970tvlvmkgqz virus vaccine, unspecified formulationBryan P Kuns Work Phone: [facility] Work Phone: [phone]wi virus vaccine, unspecified formulationBryan P Kuns Work Phone: [facility] Work Phone: [phone] virus vaccine, unspecified formulationBryan P Kuns Work Phone: [facility] Work Phone: [phone] ayrxinlxv-V5I9-58, preservative-free, injectableBryan P Kuns Work Phone: [facility] Work Phone: [phone] virus vaccineBryan P Kuns Work Phone: [facility] Work Phone: [phone]pbtjf polysaccharide vaccine, 23 valentBryan P Kuns Work Phone: [facility] Work Phone: Payers DatePayer CategoryPayerPolicy [id number] Care (Private)[facility] .[id number] Private Health [id number]1-0530 [id number]7-6662Pqujadf57-00-1995 [id number] 2..5.917790.91978981-41-4181Xfkwjfh Health Insurance [id number] 2..1.25477[id number] 2..1.898612.3.57[id number] 2..1.347860.3.57[id number] 2..1.790891.3.57[id number] 2..1.791875.3.57[id number] 2..1.345891.3.57[id number] 2.0.1.625573.3.57[id number] 2.0.1.354368.3.57[id number] 2.0.1.850843.3.57[id number] 2.0.1.568794.3.57[id number] 2.16.840.1.328222.3.57[id number] 2.16.840.1.127845.3.57[id number] 2.16.840.1.2[id number] 2.16.840.1.037324.3.579.2.531 [id number] 2.16.840.1.3[id number] 2.16.840.1.9[id number] 2.16.840.1.098669.3.579.2.531 Social History DateTypeDetailFacilityUnknown if ever smokedMulticare Tacoma [facility] Hospital [employer] Other Start: 06-19-2023 End: 36-24-9363Pfw Assigned At BirthNouniversity health [facility] [employer] Other Start: 06-19-2023 End: 14-97-4402Yuimhrey useCaffeine useGalion Hospital Work Phone: Start: 85-31-2815Rbvddbm smoking status NHISNever smoked tobaccoUnHarrison Community Hospital Work Phone: Start: 26-23-4254Gwrnuns use and exposureSmokeless tobacco non-userUnHarrison Community Hospital Work Phone: Start: 45-86-9793Zwp Assigned At BirthNot on file [facility] Work Phone: Start: 06-09-2023 End: 99-95-6986Jkyrpdyi to SARS-CoV-2 (event)Not sureUnHarrison Community HospitalStart: 04-16-2024 End: 60-36-3988Nrpakitsx beverage intakeCurrent drinker of alcohol (finding) [facility] Work Phone: Start: 68-55-4359IgzXqgrwlVgbpmstgpgMagruder Memorial Hospital Clinical Notes 02-15-2015 to 01-14-2025 Note Date & YtubQbzhLjklddmx36-47-2032 History of Present illness Narrative* Shy Wolf [...] exam, discussion and plan. documented in this encounterC[facility] Work Phone: 1(432) 937-468908-08-2025 Instructions* Patient Instructions* Richelle Frey LPN - [...] through Care Everywhere. * Heart Healthy Diet (Chinese) documented in this encounterC[facility] Work Phone: 1([phone]) 256-930807-01-2025 History of Present illness Narrative* Reuben Burns [...] in patient record. Reuben Burns MSN, JENNYFER, PMHNP-[facility] [place], [place] Please excuse any errors in grammar or translation related to this dictation. Voice recognition software was utilized to prepare this document. documented in this [facility] Work Phone: 1(104) 259-532507-01-2025 Instructions* Patient Instructions* JENNYFER Garsia - 12/07/2024 [...] Dr. Wolf as scheduled documented in this encounterUnHarrison Community Hospital Work Phone: 1(601) 875-787607-01-2025 Miscellaneous Notes* Addendum Note - JENNYFER Garsia - 12/07/2024 3:00 PM EDTAddended by: REUBEN BURNS on: 12/08/2024 02:08 PM Modules accepted: Orders documented in this encounterUnHarrison Community Hospital Work Phone: 1(641) 959-140607-01-2025 Note* Addendum Note - ARGELIA Garsia CNP - 12/07/2024 3:00 PM EDTAddended by: REUBEN BURNS on: 12/08/2024 02:08 PM Modules accepted: Orders [facility] Work Phone: 1([phone]) 801-445411-08-2024 History of Present illness Narrative* Shy Wolf [...] exam, discussion and plan. documented in this [facility] Work Phone: 1(878) 976-184111-08-2024 Instructions* Patient Instructions* Sherin Mendez LPN - [...] 9 month follow up documented in this [facility] Work Phone: 1([phone]) 698-719402-09-2024 Evaluation note* Encounter Date Diagnosis Assessment Notes Treatment Notes Treatment Clinical Notes Jul, PMR (polymyalgia rheumatica) (IC D-10 - M35.3) [employer] Other 02-06-2024 Evaluation note* Encounter Date Diagnosis Assessment Notes Treatment Notes Treatment Clinical Notes Jul, PMR (polymyalgia rheumatica) (IC D-10 - M35.3) [employer] Other 02-01-2024 Evaluation note* Encounter Date Diagnosis Assessment Notes Treatment Notes Treatment Clinical Notes Jul, Hypothyroidism (ICD-10 - E03.9) [facility] Other 01-29-2024 Evaluation note* Encounter Date Diagnosis Assessment Notes Treatment Notes Treatment Clinical Notes Jun, Hypothyroidism (ICD-10 - E03.9) Jun,Hyperthyroidism (ICD-10 - E05.90) [facility] Other 01-26-2024 Evaluation note* Encounter Date Diagnosis [...] requires sooner she is welcome to call. [employer] Other 01-11-2024 Evaluation note* Encounter Date Diagnosis Assessment Notes Treatment Notes Treatment Clinical Notes Jun, PMR (polymyalgia rheumatica) ( D-10 - M35.3) [employer] Other 01-11-2024 History of Present illness Narrative* [...] is being tapered gradually Shy Wolf MD, [facility] Review of Systems All other systems [...] Wolf MD. documented in this encounterC[facility] Work Phone: 1(745) 358-455201-11-2024 Instructions* Patient Instructions* Yevgeniy Cortez MA - [...] your visit. [facility] Phone: 1([phone] 368-322912-22-2023 Evaluation note* Encounter Date Diagnosis Assessment Notes [...] recommend the patient get the RSV vaccine. Yes[employer] Other 12-20-2023 Evaluation note* Encounter Date Diagnosis Assessment Notes Treatment Notes Treatment Clinical Notes May, Hypertension (ICD-10 - I10) May,Hypothyroidism (ICD-10 - E03.9) [facility] Other 11-10-2023 Evaluation note* Encounter Date Diagnosis Assessment Notes Treatment Notes Treatment Clinical Notes Apr, PMR (polymyalgia rheumatica) (IC D-10 - M35.3) [facility] Other 09-22-2023 Evaluation note* Encounter Date Diagnosis Assessment Notes Treatment Notes Treatment Clinical Notes Feb, PMR (polymyalgia rheumatica) (IC D-10 - M35.3) She was encouraged to take 2.5mg daily. Patient is agreeable. Feb,Hypertension (ICD-10 - I10) Blood pressure is satisfactory, she is to follow with cardiology as scheduled. [facility] Other 08-21-2023 Evaluation note* Encounter Date Diagnosis Assessment Notes Treatment Notes Treatment Clinical Notes Jan, Hypertension (ICD-10 - I10) Yes[facility] Other 06-30-2023 Evaluation note* Encounter Date Diagnosis [...] [facility] She will see Dr. Wolf in three weeks therefore was advised to make sure she discusses the swelling with him and see what he would like to do. Patient is agreeable. Yes[employer] Other 04-14-2023 Evaluation note* Encounter Date Diagnosis [...] tablets daily. We will continue to monitor. Yes[facility] Other 03-08-2023 Evaluation note* Encounter Date Diagnosis Assessment Notes Treatment Notes Treatment Clinical Notes Aug, PMR (polymyalgia rheumatica) (IC D-10 - M35.3) Yes[facility] Other 02-13-2023 Evaluation note* Encounter Date Diagnosis [...] states she has an upcoming appointment with systems accountant and she will discuss making medication changes at that time. Yes[facility] Other 11-09-2022 Evaluation note* Encounter Date Diagnosis [...] she can cut Apr,Hyperlipidemia (ICD-10 - E78.5) Yes[facility] Other 11-02-2022 Evaluation note* Encounter Date Diagnosis Assessment Notes Treatment Notes Treatment Clinical Notes Apr, PMR (polymyalgia rheumatica) (IC D-10 - M35.3) Yes[facility] Other 10-26-2022 Evaluation note* Encounter Date Diagnosis Assessment Notes Treatment Notes Treatment Clinical Notes Mar, Lumbar back pain (ICD-10 - M54.5 0) Yes[facility] Other 09-20-2022 Evaluation note* Encounter Date Diagnosis Assessment Notes Treatment Notes Treatment Clinical Notes Feb, Elevated liver function tests (I CD-10 - R79.89) Yes[facility] Other 09-16-2022 Evaluation note* Encounter Date Diagnosis Assessment Notes Treatment Notes Treatment Clinical Notes Feb, Acute pain of left shoulder (ICD -10 - M25.512) [place] [facility] report reviewed from 02/20/22 . The [...] pain (ICD-10 - R10.13) The patient advised [place] could be causing her GI upset , [...] month [place] at her next office visit. Yes[facility] Other 09-08-2022 Evaluation note* Encounter Date Diagnosis [...] (ICD-10 - M85.80) Noted on Lumbar x-ray. Yes[facility] Other 08-05-2022 Evaluation note* Encounter Date Diagnosis Assessment Notes Treatment Notes Treatment Clinical Notes Jan, COVID-19 (ICD-10 - U07.1) Yes[facility] Other 08-05-2022 Evaluation note* Encounter Date Diagnosis Assessment Notes Treatment Notes Treatment Clinical Notes Jan, Cough (ICD-10 - R05.9) In house covid test is positive. Treatment plan discussed in TE. Yesmail Other 07-14-2022 Evaluation note* Encounter Date Diagnosis Assessment Notes Treatment Notes Treatment Clinical Notes Dec, PMR (polymyalgia rheumatica) (IC D-10 - M35.3) Yes[facility] Other 05-27-2022 Evaluation note* Encounter Date Diagnosis Assessment Notes Treatment Notes Treatment Clinical Notes October, PMR (polymyalgia rheumatica) (IC D-10 - M35.3) Yes[facility] Other 04-25-2022 Evaluation note* Encounter Date Diagnosis [...] The patient encourged to continue following with systems accountant annually in December as scheduled. I did forward a copy of most current blood work results . Yes[facility] Other 04-04-2022 Evaluation note* Encounter Date Diagnosis Assessment Notes Treatment Notes Treatment Clinical Notes Sep, PMR (polymyalgia rheumatica) (IC D-10 - M35.3) Sep,Hypertension (ICD-10 - I10) Yes[facility] Other 02-24-2022 Evaluation note* Encounter Date Diagnosis [...] if needed. We will continue to montior. Yes[facility] Other 02-16-2022 Evaluation note* Encounter Date Diagnosis Assessment Notes Treatment Notes Treatment Clinical Notes Jul, PMR (polymyalgia rheumatica) (IC D-10 - M35.3) Yes[facility] Other 11-30-2021 Evaluation note* Encounter Date Diagnosis Assessment Notes Treatment Notes Treatment Clinical Notes Apr, PMR (polymyalgia rheumatica) (IC D-10 - M35.3) Yes[facility] Other 11-18-2021 Evaluation note* Encounter Date Diagnosis [...] Apr,Hypothyroidism (ICD-10 - E03.9) Blood work ordered. Yesmail Other [id number] History general Narrative - Reported* Type Description Date Medical History [facility] Kgdaxqg5999, 02-15-15-mammogram-negativeMedical History 01/20128291-cydrhuwjzxe-utinxv, repeat in 3 yrsMedical Yzahakf06/2017- colonoscopy- normalMedical Historyf/u with cardiology NOHCMedical HistoryECHO 09/2016Surgical HistoryAppendectomySurgical HistoryGallbladder RemovalSurgical HistoryOvarian Cyst RemovalSurgical HistoryCoccyx repairSurgical HistoryCataracts Bilateral EyesSurgical Historythyroidectomy Dr. Forbes10/14/2019Hospitalization History Childbirth f4Oatqtddjznnvwjb HistorySee Above Yesmail Other Evaluation noteNo InformationNortFareye Other Evaluation note* Diagnosis Aortic valve stenosis, etiology of cardiac valve disease unspecified Essential hypertension Unspecified essential hypertension Hyperlipidemia, unspecified hyperlipidemia type Never smoked any substance documented in this encounter [facility] Work Phone: Evaluation note* Diagnosis Aortic valve stenosis, etiology of cardiac valve disease unspecified- Primary Essential hypertension Unspecified essential hypertension Hyperlipidemia, unspecified hyperlipidemia type Never smoked any substance BMI 26.0-26.9,adult Hypothyroidism, unspecified type documented in this encounter [facility] Work Phone: Evaluation note* Diagnosis Nonrheumatic aortic valve stenosis Aortic valve stenosis, etiology of cardiac valve disease unspecified documented in this encounter [facility] Work Phone: Evaluation note* Diagnosis 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- Primary BMI 26.0-26.9,adult documented in this encounter [facility] Work Phone: Evaluation note* Diagnosis Aortic valve stenosis, etiology of cardiac valve disease unspecified documented in this encounter [facility] Work Phone: Evaluation note* Diagnosis Nonrheumatic aortic valve stenosis- Primary 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 Hyperlipidemia, unspecified hyperlipidemia type PMR (polymyalgia rheumatica) (Multi) Polymyalgia rheumatica Hypothyroidism, unspecified type BMI 27.0-27.9,adult Never smoked any substance Overweight documented in this encounter [facility] Work Phone: Reason for visit Narrative* CV Imaging (Routine) - AuthorizedSpecialtyDiagnoses / ProceduresReferred By ContactReferred To ContactCardiology Diagnoses Aortic valve stenosis, etiology of cardiac valve disease unspecified Procedures Transthoracic Echo Complete FL ECHO TTHRC R-T 2D W/WOM-MODE COMPL SPEC&COLR D Shy Wolf MD [address] [facility] 2, [address] [address] Phone: tel: fax: Referral IDStatusReasonStart DateExpiration DateVisits RequestedVisits [id number] Perform Procedure [facility] Work Phone: Chief Complaint * LAVONNE [...] being tapered gradually * Shy Wolf MD, [facility] * LAVONNE VILLATORO is being seen [...] PMR (polymyalgia rhe umatica) (M35.3) Referral Organization [facility] Family Medicin [facility] [place] Referring Provider First Name Suhas Referring Provider Last Name Ugo Referring Provider Specialty Family Prac sukhjinder Referred Organization [facility] Referred Address [address] [place], [place],[address] Referred Provider Specialty Rheumatology Referral Priority Routine [...] W/WOM-MODE COMPL SPEC&COLR D Shy Wolf MD [address] [place] [address] 2, [address] [place] [address] Referral IDStatusReasonStchefornak DateExpiration DateVisits RequestedVisits [id number] Review Perform Procedure [id number] / ProceduresReferred By ContactReferred To ContactCardiology Diagnoses Aortic valve stenosis, etiology of cardiac valve disease unspecified Procedures Follow Up In Cardiology Shy Wolf MD [address] [place] [address] 2, [address] [address] Shy Wolf MD [address] [facility] [address], [address] [address] Referral [facility]Status[facility] DateExpiration DateVisits RequestedVisits [id number]/11/20241/10/202511 Additional Source Comments REASON FOR VISIT (unrecogniz ed section and content) ReasonCommentsFollow-up9 month, echocardiogram resultsSpecialtyDiagnoses / ProceduresReferred By ContactReferred To ContactCardiology Diagnoses Aortic valve stenosis, etiology of cardiac valve disease unspecified Procedures Follow Up In Cardiology Shy Wolf MD [address] [place] [address], [address] [address] Phone: tel: fax: Shy Wolf MD [address] [place] [address], [place] [id number] Phone: tel: fax: Referral IDStatusReasonStart DateExpiration DateVisits RequestedVisits [id number]/8/202411/8/[id number]-tz6cSvtnlo CommentsFollow-lw1cWufiuzpd IDStatusReasonStart DateExpiration DateVisits RequestedVisits [id number]/11/20241/[id number] Diagnoses / ProceduresReferred By ContactReferred To ContactCardiology Diagnoses Nonrheumatic aortic valve stenosis Procedures Transthoracic Echo (TTE) Complete FL ECHO TRANSTHORC R-T 2D W/WO M-MODE REC F-UP/LMTD FL DOP ECHOCARD COLOR FLOW VELOCITY MAPPING FL DOP ECHOCARD PULSE WAVE W/SPECTRAL F-UP/LMTD STD Shy Wolf MD [address] [place] [id number] Referral IDStatusReasonStart DateExpiration DateVisits RequestedVisits [id number] Perform Procedure /[id number]-ax ClearancePOC for spinal cord stimulator, scheduled 12.13.[address] Weston. INFORMATION SOURCE (unrecogn ized section and content) DATE CREATED AUTHOR 03/06/2022 [facility] DATE CREATED AUTHOR AUTHOR'S ORGANIZ ATION 12/25/2022 [facility] DATE CREATED AUTHOR AUTHOR'S ORGANIZ ATION 12/25/2022 [employer] DATE CREATED AUTHOR AUTHOR'S ORGANIZ ATION 03/03/2023 [facility] DATE CREATED AUTHOR AUTHOR'S ORGANIZ ATION 07/29/2024 [facility] DATE CREATED AUTHOR AUTHOR'S ORGANIZ ATION 12/25/2024 [facility] DATE CREATED AUTHOR AUTHOR'S ORGANIZ ATION 01/16/2025 [facility] DATE CREATED AUTHOR AUTHOR'S ORGANIZ ATION 02/23/2025 [facility] Care Teams (unrecognized sec tion and content) Team MemberRelationshipSpecialtyStart DateEnd Date Suhas Garrett DO PCP - General06/09/99Team MemberRelationshipSpecialtyStart DateEnd Date Suhas Garrett DO [address] [place] [address] PCP - [facility] Medicine01/30/24Team MemberRelationshipSpecialtyStart DateEnd Date Suhas Garrett DO [address] [place] [address] [facility]/24Team MemberRelationshipSpecialtyStart DateEnd Date Suhas Garrett DO [address] [place] [address] PCP - GeneralFamily Medicine01/30/24Team MemberRelationshipSpecialtyStart DateEnd Date Suhas Garrett DO [address] [place] [address] PCP - GeneralFamily Medicine01/30/24Team MemberRelationshipSpecialtyStart DateEnd Date Suhas Garrett DO [address] [place] [address] PCP - GeneralFamily Medicine01/30/24 FOR RECORDS PERTAINING [...] THE PRIMARY CLINICAL RECORDS. [facility]. provides no warranty or guarantee of the accuracy or completeness of information in this document.
--- NOTE | 2025-04-06 14:40 | PM.CN ---
Consult Note: HPI Data of Consult Patient: known to practice within the last 3 years Consult date: 04/06/25 Requesting Physician: Norma Jimenez NP Primary Care Provider: Suhas Arizmendi DO Consult Narrative Reason for consult: BLE edema Narrative: Marcy Murillo a pleasant 89 year old female presents for evaluation of BLE edema post spinal cord stim trial, pt thinks tramadol is causing BLE edema. pt noting moderate pain to incision sites. denies fevers, chills, chest pain, SOB, nausea, vomiting, diarrhea. pain today 5/10 aching. cc:: CC: Norma Jimenez NP Review of Systems ROS Musculoskeletal Reports: back pain, extremity pain and extremity swelling PFSH [facility] Medical History 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 ?I10 - Essential (primary) hypertension (ICD-10) Lumbar stenosis with neurogenic claudication ?M48.062 - Spinal stenosis, lumbar region with neurogenic claudication (ICD-10) Back pain ?M54.9 - Dorsalgia, unspecified (ICD-10) Shoulder pain ?M25.519 - Pain in unspecified shoulder (ICD-10) Seizures (1988) ?R56.9 - Unspecified convulsions (ICD-10) Heartburn ?R12 - Heartburn (ICD-10) Cataract ?H26.9 - Unspecified cataract (ICD-10) Hepatic lesion ?K76.9 - Liver disease, unspecified (ICD-10) Insomnia ?G47.00 - Insomnia, unspecified (ICD-10) Lung density on x-ray ?J98.4 - Other disorders of lung (ICD-10) Multinodular thyroid ?E04.2 - Nontoxic multinodular goiter (ICD-10) Hypothyroidism (acquired) ?E03.9 - Hypothyroidism, unspecified (ICD-10) Hyperlipidemia ?E78.5 - Hyperlipidemia, unspecified (ICD-10) Aortic stenosis ?I35.0 - Nonrheumatic aortic (valve) stenosis (ICD-10) Polymyalgia rheumatica ?M35.3 - Polymyalgia rheumatica (ICD-10) Hyperthyroidism ?E05.90 - Thyrotoxicosis, unspecified without thyrotoxic crisis or storm (ICD-10) Heart murmur ?R01.1 - Cardiac murmur, unspecified (ICD-10) HTN (hypertension) ?I10 - Essential (primary) hypertension (ICD-10) Surgical History S/P epidural steroid injection ?Z92.241 - Personal history of systemic steroid therapy (ICD-10) History of cataract extraction with lens replacement H/O excision of mass ?Z98.890 - Other specified postprocedural states (ICD-10) H/O colonoscopy ?Z98.890 - Other specified postprocedural states (ICD-10) 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 - Postprocedural hypothyroidism (ICD-10) Hx of cholecystectomy ?Z90.49 - Acquired absence of other specified parts of digestive tract (ICD-10) History of ovarian cystectomy ?Z98.890 - Other specified postprocedural states (ICD-10) ?Z87.42 - Personal history of other diseases of the female genital tract (ICD-10) History of appendectomy ?Z90.49 - Acquired absence of other specified parts of digestive tract (ICD-10) Family History Other Family history of DVT Family history of aneurysm Family history of cancer Family history of diabetes mellitus Family history of heart disease Social History Within the past year, how often did you have a drink containing alcohol: monthly or less Smoking status: Never smoker Non-prescribed substance use: denies use Highest level of school completed/degree received: high school graduate Little interest or pleasure in doing things: not at all Feeling down, depressed, or hopeless: not at all Meds Home Medications and Allergies Home Medications ?Medication ?Instructions ?Recorded ?Confirmed ?Type aspirin 81 mg capsule 81 mg PO DAILY 08/25/23 04/04/25 History carvedilol 6.25 mg tablet 6.25 mg PO Q12H 08/25/23 04/04/25 History levothyroxine 100 mcg tablet 100 mcg PO DAILY 08/25/23 04/04/25 History lorazepam 0.5 mg tablet 0.5 mg PO Q8H PRN anxiety 10/25/24 04/04/25 History acetaminophen 650 mg 1,300 mg PO Q12H PRN pain 11/29/24 04/04/25 History tablet,extended release amlodipine 5 mg tablet 5 mg PO DAILY 11/29/24 04/04/25 History losartan 100 1 tab PO DAILY 11/29/24 04/04/25 History mg-hydrochlorothiazide 25 mg tablet multivitamin (Daily Multi-Vitamin 1 tab PO DAILY 11/29/24 04/04/25 History tablet) gabapentin 300 mg capsule 300 mg PO Q8H 02/08/25 04/04/25 History methocarbamol 500 mg tablet 500 mg PO Q8H PRN pain #20 tabs 03/29/25 04/04/25 Rx clindamycin HCl 300 mg capsule 300 mg PO BID #14 caps 03/30/25 Rx tramadol 50 mg tablet 50 mg PO Q6H PRN pain #16 tabs 04/04/25 Rx tramadol 50 mg tablet 50 mg PO TID PRN pain 04/04/25 04/04/25 History baclofen 10 mg tablet See Rx Instructions .Route 04/06/25 Rx .COMPLEX PRN muscle spasm #90 tabs Allergies Allergy/AdvReac Type Severity Reaction Status Date / Time amoxicillin Allergy Mild Rash Verified 04/04/25 07:02 divalproex sodium (From Allergy Unknown hair loss Verified 04/04/25 07:02 Depakote) hydrocodone Allergy Unknown Rash Verified 04/04/25 07:02 phenytoin (From Dilantin) Allergy Unknown Rash Verified 04/04/25 07:02 alendronate sodium (From AdvReac eye pain Verified 04/04/25 07:02 Fosamax) Exam Constitutional Documenting provider has reviewed patient's vital signs: yes Common normals: no apparent distress, oriented x3, healthy appearing, alert and well nourished General appearance: cooperative [facility] Common normals: normocephalic, hearing grossly normal bilaterally and moist oral mucous membranes Head and scalp: normocephalic Eye Common normals: PERRL Pupil: PERRL Neck & C-Spine Common normals: full ROM General: normal visual inspection Chest Common normals: inspection of chest normal Respiratory Common normals: normal respiratory effort, no retractions and no use of accessory muscles Back & Pelvis Other: incisions covered x2, dressings intact without significant drainage generalized warmth without rash noted to low back strength 5/5 in BLE Extremity Other: 1+ pitting to bilateral feet/calves. negative homans signs. no redness/warmth to touch. Neuro Common normals: oriented x3 Sensorium/orientation: alert Psych Common normals: mental status grossly normal, thought process normal, cooperative, affect normal, speech normal and activity/motor behavior normal Speech: normal speech Thought process: normal thought process Assessment and Plan Assessment and Plan (1) Encounter for medication monitoring: (2) Post-op pain: (3) Bilateral lower extremity edema: (4) Lumbar stenosis with neurogenic claudication: Plan 89 year old female with edema of BLE for 1 week, worsening after starting tramadol from the ER per pt. pt denies fevers, chills, SOB, nausea, vomiting, diarrhea. notes she recently had covid shot and flu shot 03/22/25 and developed severe joint pain afterwords which led to 2 ER visits on 03/29 and 03/30. Pain today 5/10 soreness in low back. update CBC and CMP to assess post op pain, rule out infection, assess BLE edema. will coordinate care with PCP depending on results. dc tramadol. start baclofen 5-10mg tid prn pain/spasms. f/u as planned 04/07/25 CBC and CMP reviewed, significantly elevated AST ALT and alk phos compared to prior labs collected 03/30/25. results to be faxed to PCP Dr Schwartz for further workup and evaluation. nursing staff will call his office to discuss results as well.
== END 2025-04-06 13:57 | disposition home or self-care (01) ==
LOC: PM 13:57
PROVIDERS: PCP Family Medicine; Visit Provider Nurse Practitioner
DX: Z51.81 Encounter for therapeutic drug level monitoring (principal); R60.0 Localized edema; M48.062 Spinal stenosis, lumbar region with neurogenic claudication; G89.18 Other acute postprocedural pain
CPT/HCPCS: G0463

== ENCOUNTER 2025-04-06 14:55 | Outpatient (OUT) | payer MEDICARE, OTHER, SELFPAY ==
--- OUTSIDE RECORDS SUMMARY | 2025-04-06 15:00 | XMS_ITS | Clinical Summary ---
Author Organization [facility] Address [address] [place] [address] Phone Care Team Providers Care Supervisor Payroll Name Role Phone Suhas Arizmendi DO Primary Care Provider [phone] Allergies Active AllergyReactionsCriticalityNoted CkpgZqncczrlIeyzropqzgxZhgps76/27/2023 Eye pain WczvqeniqlgJpxwyInzw16/27/4525YlrmmmliozGchds00/01/2025 Hair loss HydrocodoneGI SwuxuOlhjfa49/11/8116WmrvviqzzYzghYut22/27/2023Valproic Acid Ijdbxfq0306/04/2023 Medications MedicationSigDispense QuantityRefillsLast FilledStart DateEnd DateStatus multivit-min/ferrous [...] Problems ProblemNoted DateDiagnosed DateBMI 27.0-27.9,adult04/16/2024Never smoked any gttaswgwe46/11/2024ortic qcxukzcw88/27/2023arotid bruit06/04/2023White coat syndrome with diagnosis of euhijofebnco56/27/6947Grijgpybiztdki89/27/2023 Nldlwhuemexpgh55/27/2023Murmur, aqjehen7906/04/2023MR (polymyalgia rheumatica) 06/04/2023 Encounters DateTypeDepartmentCare SplrGahmywydbka00/08/2025 11:[address] [place] [address] Michel Wolf MD Nonrheumatic aortic valve stenosis (Primary Dx); 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; Hyperlipidemia, unspecified hyperlipidemia type; PMR (polymyalgia rheumatica) ([facility]); Hypothyroidism, unspecified type; BMI 27.0-27.9,adult; Never smoked any substance; Byjyavmhqw81/08/2025Travelfrom Last 3 Months Immunizations ImmunizationAdministration DatesNext DueFlu vaccine, trivalent, preservative free, HIGH-DOSE, age 65y+ (Fluzone)03/09/2019Flu vaccine, trivalent, preservative free, age 6 months and greater (Fluarix/Fluzone/Flulaval)04/05/2014 Influenza Whole03/09/2014Influenza, Seasonal, Quadrivalent, Gtstocmthw89/25/2023 ,03/21/2022Influenza, Hkvnpglchab62/01/2018,04/09/2017,03/09/2016,03/09/2015, 03/09/2013,06/09/2011,06/09/2010,06/09/2009Influenza, injectable, quadrivalent 04/07/2015,04/14/2012Influenza, seasonal, ohhrxzihmf21/01/2020,03/04/2019 Influenza, trivalent, txshjypkpw83/30/2024,03/06/2020,03/16/2018,03/28/2017, 04/01/2016Moderna COVID-19 vaccine, 12 years and older (50mcg/0.5mL)(Spikevax) 04/07/2024,04/02/2023Moderna COVID-19 vaccine, bivalent, blue cap/uribe label *Check age/dose*04/17/2022Novel tdtqfqpnw-C9J3-20, preservative-free05/30/2009 Pneumococcal conjugate vaccine, 13-valent (PREVNAR 13)05/24/2016,05/23/2016, [...] InformationValueDate RecordedSex Assigned at BirthNot on fileLegal FngQkhlgk87/25/2022 8:57 AM ESTGender Identity Not on fileSexual OrientationNot on file Last Filed Vital Signs Vital SignReadingTime TakenCommentsBlood Cugnhfgm570/7808 11:07 AM EDT Ukxzb8342/08/2025 11:07 AM EDTTemperature--Respiratory Rate--Oxygen Saturation-- Inhaled Oxygen Concentration--Edtqyp34 kg (150 lb)01/14/2025 11:07 AM EDTHeight 157.5 cm (5' 2 )01/14/2025 11:07 AM EDTBody Mass Index27.44001/14/2025 11:07 AM EDT Plan of Treatment DateTypeDepartmentCare Team (Latest Contact Info)Sknvyxgxqev70/14/2026 10:45 AM EDTAppointment [facility] [address] [place] [phone] 01/26/2026 11:[address] [address] [facility] [address] [place] [id number] Michel Wolf MD [address] [facility] [address] [place] [address] Health MaintenanceDue DateLast DoneCommentsLipid Panel1936TSH Level 1936Hepatitis A Vaccines (1 of 2 - Risk 2-dose series)08/11/1955Hepatitis B Vaccines (1 of 3 - Risk 3-dose series)1996Bone Density Scan02/19/2024 02/18/2022Influenza Vaccine (#1)51, 04/02/2023, 03/21/2022, Additional history existsCOVID-19 Vaccine ( season)2025 04/07/2024, 04/02/2023, 04/17/2022, Additional history existsMedicare Annual Wellness Visit (AWV)602/, 04/28/2020DTaP/Tdap/Td Vaccines (2 - Td or Tdap)Zoster OrsbavlkMakcxjfto00/26/2019, 02/04/2019, 10/19/2007RSV High Risk: (Elderly (60+) or Population)Completed 3Pneumococcal KsorbkeAjvzklptn18/15/2024, 04/28/2020, 05/24/2016, Additional history existsHIB VaccinesAged OutNo [...] DateEnd Date Suhas Arizmendi DO [address] [place] [address] [facility] - [facility]01/30/24
--- OUTSIDE RECORDS SUMMARY | 2025-04-06 15:00 | XMS_ITS | Clinical Summary ---
Author Organization [facility] Healthcare Address [address] [place] [address] Care Team Providers Care Hotel Or Motel Cleaning Supervisor Name Role Phone Unavailable Primary Care Provider Unavailabl e Social History Tobacco UseTypesPacks/DayYears UsedDateSmoking Tobacco: Never Assessed CommentsUnknownSex and Gender InformationValueDate RecordedSex Assigned at Not on fileLegal YqhNhuszu89/15/2023 7:21 PM EDTGender IdentityNot on fileSexual OrientationNot on file Last Filed Vital Signs Vital SignReadingTime TakenCommentsBlood Pressure--Pulse--Temperature-- Respiratory Rate--Oxygen Saturation--Inhaled Oxygen Concentration--Madhxg46.5 kg (140 lb)04/21/2020 12:00 PM SPOTglesj685.5 cm (5' 2 )04/21/2020 12:00 PM ESTBody Mass Index25.6104/21/2020 12:00 PM EST Plan of Treatment [place] [id number]
--- OUTSIDE RECORDS SUMMARY | 2025-04-06 15:00 | XMS_ITS | Clinical Summary ---
Author Organization [facility] Address [address] [place] [address] Care Team Providers Care Sand Control Worker Name Role Phone Suhas Arizmendi DO Unavailable Suhas Arizmendi DO Primary Care Provider [phone] Allergies Active AllergyReactionsCriticalityNoted DateCommentsDivalproex SodiumIntolerance 03/29/2005Phenytoin Sodium QutowqtaWqwl10/21/2005 Medications MedicationSigDispense QuantityRefillsLast FilledStart DateEnd DateStatus NORVASC 5 MG TAB Take one(1) tablet daily.Active DIOVAN HCT 160 MG-12.5 MG TAB twice a [id number] METOPROLOL SR 50 MG 24 HR TAB once a [id number] SYNTHROID 100 MCG TAB Take one(1) tablet daily.Active CALCIUM ANTACID 500 MG CHEWABLE TAB Calcium with D 600mg once a zyk700Active VIT [id number] ACID-MAG OX 100 UNIT-2.05 MG TAB Vit e 400 IU every other haa328Active ASPIRIN 81 MG TAB once a dtu737Active Family History Medical HistoryRelationCommentsNoneMotherno family history of breast cancer RelationStatusCommentsMother Social History Tobacco UseTypesPacks/DayYears UsedDateSmoking Tobacco: Never Assessed CommentsUnknownSex and Gender InformationValueDate RecordedSex Assigned at Not on fileLegal WauWbwsvx02/02/2012 7:32 AM ESTGender IdentityNot on fileSexual OrientationNot on file Plan of Treatment Health MaintenanceDue DateLast DoneCommentsAnxiety Uxoxcvvpc89/04/1955Depression Veyxtvunl61/04/1955DTaP,Tdap,Td Vaccine (1 - Tdap)08/11/1955Diabetes Screening 1981Pneumococcal Vaccine: 50+ (1 of 1 - PCV)1986Shingrix Vaccine (1 of 2)1986Bone Density Whkafwpnn19/04/2002RSV Vaccine (1 - 1-dose 75+ series)08/11/2011dvance Directive Kaovoruvdv30/01/2025ovid-19 Vaccine (1 - 2024-26 season)2025Influenza Vaccine (#1)2025 Insurance Care Teams Team MemberRelationshipSpecialtyStart DateEnd Date Suhas Arizmendi DO [address] [place] [address] PCP - Generalmily Medicine07/23/23 Suhas Arizmendi DO [address] [place] [address] ReferringF[facility]all [facility] Medicine07/23/23
--- OUTSIDE RECORDS SUMMARY | 2025-04-06 15:02 | XMS_ITS | CCD ---
Author Organization [facility] CliniSytn Care Team Providers Care Perinatology Physician Name Role Phone Suhas Garrett Unavailable Suhas [...] Provider Suhas Garrett DO Primary Care Provider Suhsa Garrett Primary Care Unavailable Suhas Garrett Admitting Unavailable Suhas Garrett Attending Unavailable KunSuhas arellano Attending Unavailable Suhas Garrtet Primary Care Unavailable KunsSuhas Admitting Unavailable KunSuhas arellano Attending Unavailable Suhas Garrett Primary Care Unavailable KunsSuhas Admitting Unavailable KunsSuhas Attending Unavailable Suhas Garrett Primary Care Unavailable GaelsSuhas Admitting Unavailable Kuns Suhas TYLER Primary Care Provider [phone] SHY WOLF Referring Unavailable SUHAS GARRETT Primary [...] of OnsetReaction(s) Facility (20 sources)Alendronate; Translations: [Fosamax]Drug Arhqahf31-49-4879NbqtzxjWhite [facility] Repository (20 sources)Amoxicillin; Translations: [amoxicillin]Drug Mbzkkvi64-75-4583vblxd [place] [employer] Other (20 sources)Phenytoin; Translations: [Dilantin CAPS]Drug Hdxeoiy01-21-5791Sekl [place] [facility] Other (20 sources)Valproate; Translations: [Depakote ER TB24]Drug AllergyUnknowNorthwest Hospital [employer] Other (1 source)AlendronateDrug AllergyThe [facility] Repository (1 source)AmoxicillinDrug [facility]ergyBer[facility] Rep[facility] (1 source)PhenytoinDrug [facility]ergyBer[facility] Repository (1 source)ValproateDrug AllergyThe [facility] Repository (20 sources)Acetaminophen / HYDROcodoneDrug Allergyelevated liver enzymesMilitary Health System [employer] Other (6 sources)AlendronateDrug Augbyur31-26-6631TpvorykBerger Hospital (8 sources)HYDROcodone; Translations: [HYDROCODONE]Drug Rpdmdbz33-90-2576KTPaulding County Hospital Work Phone: (8 sources)Valproate; Translations: [VALPROIC ACID]Drug Wierdjk28-48-4241TzhcjfrAccess Hospital [facility] Work Phone: (1 source)AcetaminophenDrug Twnccdx21-46-6467FcqgkpcgkAdena Health System Repository (1 source)AlendronateDrug Ekhurdk98-39-2991KfqhvtolhAdena Health System Repository (1 source)AmoxicillinDrug Vncfsue00-63-4400GcsuvgfrmAdena Health System Repository (1 source)HYDROcodoneDrug Zzdjnwp09-09-0502VunrwzfqiAdena Health System Repository (1 source)PhenytoinDrug Likuqql80-79-6986PmwqsuhovAdena Health System Repository (1 source)ValproateDrug Zbepkly63-46-8266MkivcpngbAdena Health System Repository (5 sources)Valproate; Translations: [DIVALPROEX]Drug Ivgmtpp97-30-8087KczlxCincinnati VA Medical Center Work Phone: Medications Current Medications MedicationDrug Class(es)DatesSig [...] mg oral tablet (20 sources)Nonsteroidal Anti-inflammatory DrugStart: 69-13-0792tlcw 1 tablet by mouth twice daily at mealtime as neededIbuprofen 600 MG 1 tablet with food or milk as needed Orally Twice a day as needed with food Jan, ActiveStart: 11-98-8343lzko 1 tablet by mouth three times daily at mealtime as needed Ibuprofen 600 MG 1 tablet with food or milk as needed Orally TID PRN with food Jan, Not-Takinglevothyroxine sodium 0.1 mg oral tablet (20 sources)l-ThyroxineStart: 92-99-0312gkzl 1 tablet by mouth once daily levothyroxine [...] ActivepredniSONE 10 mg oral tablet (20 sources)Start: 87-65-8996tdms 1 tablet by mouth once dailypredniSONE (Deltasone) 10 mg tablet Take 1 tablet (10 mg) by mouth once daily. 12/09/2024 ActiveStart: 78-50-6847pnsi 2 tablets by mouth once dailypredniSONE 10 MG 2 tablets x 7 days, 1 tablet x 7 days, then 1/2 tablet or 5mg daily thereafter Orally as directed Jun, ActiveStart: 68-67-4903crpr 1 tablet by mouth every twenty-four hourspredniSONE 20 MG 1 tablet Orally Once a day for 10 days Apr, ActiveStart: 43-78-4501zhte 1 tablet by mouth every other day predniSONE 2.5 MG 1 tablet Orally alternating every other day with 5mg Nov, ActiveStart: 76-41-9543hpyw 1 tablet by mouth every twenty-four hours predniSONE 2.5 MG 1 tablet Orally Once a day Apr, ActiveStart: 89-76-4432rywd 1 tablet by mouth every twenty-four hourspredniSONE 10 MG 1 tablet Orally Once a day for 90 days Apr, ActiveStart: 83-22-6492kozz 1 tablet by mouth every twenty-four hourspredniSONE 20 MG 1 tablet Orally Once a day for 30 day(s) Apr, ActiveStart: 34-32-5115jtpkqrWWHD 20 MG 1 tablet with food or milk Orally 1 tab twice a day x 5 days , 1 tab every day x 5days for 10 days Feb, ActiveStart: 23-68-0772opud 1 tablet by mouth at mealtime, then take 1 tablet by mouth twice daily, then take 1 tablet by mouth once dailypredniSONE 20 MG 1 tablet with food or milk Orally 1 tab twice a day x 5 days , 1 tab once a day X 5 days Jan, ActiveStart: 78-39-7643gibh 1 tablet by mouth every other daypredniSONE 5 MG 1 tablet Orally alternating every other day with 2.5mg Apr, ActiveStart: 02-22-2020 End: 50-60-2370lgqqwmHNBJ (Deltasone) 5 mg tablet Take 1 tablet (5 mg) by mouth once daily. Alternating 2.5 tab 11/02/2021 01/14/2025 Discontinued (Dose adjustment)Start: 18-83-6796rjwo 1 tablet by mouth every twenty-four hours predniSONE 2.5 MG 1 tablet Orally Once a day Feb, ActiveStart: 75-22-7835fuup 1.5 tablets by mouth every twenty-four hourspredniSONE 5 MG 1.5 tablets Orally Once a day Feb, ActivetraMADol hydrochloride 50 mg oral tablet (5 sources)Opioid AgonistStart: 04-08-6726qpwd 1 tablet by mouth every eight hourstraMADol HCl 50 MG 1 tablet as needed Orally tid Jun, ActiveStart: 82-41-1822wxyb 1 tablet by mouth every twenty-four hourstraMADol HCl 50 MG 1 tablet as needed Orally Once a day Jun, ActiveTylenol Arthritis Pain 650 MG (20 sources)Tylenol Arthritis Pain 650 MG as directed Orally Not-TakingTylenol Arthritis Pain 650 MG as directed Orally Active Completed/Discontinued Medications MedicationDrug Class(es)DatesSig (Normalized)Sig (Original)amLODIPine 10 mg oral tablet (20 sources)Dihydropyridine Calcium Channel BlockerStart: 47-85-2184ukkr 1 tablet by mouth every twenty-four hoursNorvasc 5 MG 1 tablet Orally Once a day for 90 day(s) May, ActiveStart: 06-03-2017 End: 83-40-5422kyhz 1 tablet by mouth once dailyamLODIPine (Norvasc) 10 mg tablet Take 1 tablet (10 mg) by mouth once daily. 12/13/2021 12/07/2024 D iscontinued (Dose adjustment)calcium carbonate 1500 mg oral tablet (11 sources) End: 52-72-8715kfrl 1 tablet by mouth once dailycalcium carbonate [...] 24-Dec-2022 DO ActiveFish Oils (4 sources) End: 77-27-6594oldt 1 capsule by mouth once dailyomega-3 (Fish [...] Not-Takingmelatonin 5 mg oral tablet (20 sources)Start: 94-80-3042zdeo 1 tablet by mouth every twenty-four hours Melatonin 5 MG 1 tablet in the evening Orally Once a day Sep, Not-Taking/PRNmethylPREDNISolone (20 sources)CorticosteroidStart: 87-45-3042MVHN-MEDROL 41 - 125 mg Jan, 125 mgMulti Vitamin Oral Tablet (7 sources)take 1 tablet by mouth once dailyMulti Vitamin Oral Tablet TAKE 1 TABLET DAILY. Quantity: 0 Refills: 0 Ordered: 13-Dec-2021 DO ActiveOmega 3 500 CAPS (4 sources)[place] 3 500 CAPS TAKE 1 CAPSULE Daily Quantity: 0 Refills: 0 Ordered: 13-Dec-2021 DO Activeoxycodone HCl/acetaminophen (OXYCODONE-ACETAMINOPHEN ORAL) (2 sources)Start: 02-23-2024 End: 27-82-7801vwjgivnmz HCl/acetaminophen (OXYCODONE-ACETAMINOPHEN ORAL) Take by mouth. 02/23/2024 12/07/2024 Discontinued (Therapy completed)Start: 44-43-2634osjkfdyaw HCl/acetaminophen (OXYCODONE-ACETAMINOPHEN ORAL) Take by mouth. 02/23/2024 ActivetraZODone hydrochloride 50 mg oral tablet (16 sources)Serotonin Reuptake InhibitorStart: 43-66-5861qlej 1 tablet by mouth every twenty-four hourstraZODone HCl 50 MG 1 tablet at bedtime as needed Orally Once a day prn Jul, Not-Taking/PRN Problems Active Problems Problem ClassificationProblemDateDocumented DateEpisodic/ChronicAbdominal pain (20 sources)Generalized abdominal pain; Translations: [Generalized abdominal pain]Onset: 02-22-2022 Resolved: 90-28-6175YddbhebiImtxetjsudngde/social admission (20 sources)Advance directive discussed with patient; Translations: [Other specified counseling]EpisodicCoronary atherosclerosis and other heart disease (20 sources)Coronary arteriosclerosis; 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 [place] coronary artery without angina pectoris]Onset: 09-03-2023 ChronicDisorders of lipid metabolism (20 sources)Hyperlipidemia; Translations: [Hyperlipidemia, unspecified]Onset: 04-26-2021 Resolved: 17-94-7509WorghvcPguukpuai hypertension (20 sources)Hypertensive disorder; Translations: [Essential (primary) hypertension]Onset: 09-10-2021 Resolved: 13-44-1920PlumebzAoscv valve disorders (20 sources)Aortic valve stenosis; Translations: [Aortic valve disorders]Onset: 79-96-7299DenvbbiTomafsecdbd deficiencies (1 source)Vitamin D deficiency, unspecified; Translations: [Vitamin D deficiency, unspecified]Onset: 53-47-8920IukbvzuFdmyeqwffmbc (1 source)Osteoporosis; Translations: [Age-related osteoporosis without current pathological fracture]ChronicOther aftercare (1 source)Other alf (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; Translations: [OTH CORPORATE OFFICER CURRENT DRUG THERAPY]Onset: 04-65-0584LkyeudpiMicea bone disease and musculoskeletal deformities (20 sources)Pain of left shoulder blade; Translations: [Other specified disorders of bone, shoulder]EpisodicOther bone disease and musculoskeletal deformities (20 sources)Osteopenia; Translations: [Other specified disorders of bone density and structure, multiple sites]EpisodicOther circulatory disease (20 sources)Cardiovascular symptoms; Translations: [Other specified symptoms and signs involving the circulatory and respiratory systems]EpisodicOther connective tissue disease (20 sources)Polymyalgia rheumatica; Translations: [Polymyalgia rheumatica]Onset: 528394-52-8360UzioyweJlkjw connective tissue disease (20 sources)Polymyalgia rheumatica; Translations: [Polymyalgia rheumatica]Onset: 04-26-2021 Resolved: 45-52-3309BqcvkazLyxan connective tissue disease (1 source)Other muscle spasm; Translations: [OTHER MUSCLE SPASM]Onset: 73-03-7493CqogpcqbUyyev liver diseases (20 sources)Disease of liver; Translations: [Liver disease, unspecified]Chronic Other lower respiratory disease (20 sources)Radiologic increased density of lung; Translations: [Other disorders of lung]EpisodicOther non-epithelial cancer of skin (20 sources)Basal cell carcinoma of skin; Translations: [Basal cell carcinoma of skin, unspecified]EpisodicOther non-traumatic joint disorders (6 sources)Pain in left shoulder; Translations: [PAIN IN LEFT SHOULDER]Onset: 02-20-2022 Resolved: 27-31-5464CddsosgnPxmsi non-traumatic joint disorders (20 sources)Shoulder pain; Translations: [Pain in left shoulder]EpisodicOther nutritional; endocrine; and metabolic disorders (14 sources)Overweight in adulthood with body mass index of 25 or more but less than 30; Translations: [Overweight]Onset: 589301-66-2707WgbgjhovWypmv nutritional; endocrine; and metabolic disorders (1 source)Overweight; Translations: [Overweight]32-49-0769AtogtfrjYzcpn nutritional; endocrine; and metabolic disorders (2 sources)Body mass index (BMI) 27.0-27.9, adult; Translations: [Body mass index (BMI) 27.0-27.9, adult]Onset: 09-70-4353GuyfcnqcMycpu screening for suspected conditions (not mental disorders or infectious disease) (20 sources)Other specified abnormal findings of blood chemistry; Translations: [Elevated liver function tests]Onset: 02-26-2022 Resolved: 19-20-8857HpcnrorrSlfvqxwe codes; unclassified (20 sources)Insomnia; Translations: [Insomnia, unspecified]EpisodicResidual codes; unclassified (20 sources)Family history of malignant neoplasm of gastrointestinal tract; Translations: [Family history of malignant neoplasm of digestive organs]Episodic Residual codes; unclassified (20 sources)Difficulty sleeping ; Translations: [Sleep disorder, unspecified] EpisodicResidual codes; unclassified (3 sources)Insomnia, unspecifiedOnset: 10-01-2021 Resolved: 16-19-7291IbqrbpzfFiuvohvf codes; unclassified (9 sources)Never smoked any substance; Translations: [Other specified health status]Onset: 961236-40-3374XdiwgidsZwpnmirk codes; unclassified (2 sources)Other specified health status; Translations: [Other specified health status]Onset: 63-33-0118HagmxrhhNrfrbdzrgfl; intervertebral disc disorders; other back problems (13 sources)Low back pain; Translations: [Lumbar back pain]EpisodicSprains and strains (20 sources)Strain of muscle and/or tendon of lower leg; Translations: [Strain of unspecified muscle and tendonat ankle and foot level, left foot, subsequent encounter]EpisodicThyroid disorders (20 sources)Hypothyroidism; Translations: [Hypothyroidism, unspecified]Onset: 04-26-2021 Resolved: 95-64-8524Jfeappa Past or Other Problems Problem ClassificationProblemDateDocumented DateEpisodic/ChronicConditions associated with dizziness or vertigo (2 sources)Dizziness and giddiness; Translations: [Dizziness and giddiness] Onset: 02-14-2022 Resolved: 86-14-7431JsfonbdoSlnzm valve disorders (20 sources)Heart murmur; Translations: [Cardiac murmur, unspecified]Onset: 10-01-2021 Resolved: 57-56-3358LhqbnojwGnwkc acquired deformities (1 source)Spondylolisthesis, lumbar regionOnset: 02-14-2022 Resolved: 75-86-7067UggpfigzUmaqi bone disease and musculoskeletal deformities (1 source)Other specified disorders of bone density and structure, unspecified siteOnset: 02-14-2022 Resolved: 63-44-9606JqttojknQwrmp bone disease and musculoskeletal deformities (1 source)Other specified disorders of bone, shoulderOnset: 02-22-2022 Resolved: 79-34-8221UwqqqiirGyjez bone disease and musculoskeletal deformities (1 source)Other specified disorders of bone density and structure, multiple sitesOnset: 02-22-2022 Resolved: 19-71-6053YikiszzgOzdty circulatory disease (20 sources)Carotid bruit; Translations: [Other symptoms involving cardiovascular system]Onset: 06-04-2023 Resolved: 895397-13-6474NvoetfziOwrjm circulatory disease (1 source)Other specified symptoms and signs involving the circulatory and respiratory systems; Translations:[Other specified symptoms and signs involving the circulatory and respiratory systems]Onset: 34-35-1865UahkyppyGrsty liver diseases (1 source)Abnormal levels of other serum enzymes; Translations: [Abnormal levels of other serum enzymes]Onset: 80-97-1862YmdqkwrwJwich nutritional; endocrine; and metabolic disorders (2 sources)Body mass index (BMI) 26.0-26.9, adult; Translations: [Body mass index (BMI) 26.0-26.9, adult]Onset: 13-20-9628GfuruyuvLcnpc skin disorders (1 source)Localized swelling, mass and lump, headOnset: 04-26-2021 Resolved: 18-51-1436PmkxzibaBksensdk codes; unclassified (1 source)Sleep disorder, unspecifiedOnset: 08-02-2021 Resolved: 27-37-1853CbnguargOsgeapob codes; unclassified (1 source)Asymptomatic menopausal stateOnset: 02-14-2022 Resolved: 21-14-3302WgmfihapTsblafmjbxzj (7 sources)Never smoked tobacco; Translations: [Never smoker]Unclassified (1 source)Cough R05.9Onset: 01-11-2022 Resolved: 82-09-1018Ynyubrysdkup (3 sources)Lumbar back pain M54.50Onset: 02-14-2022 Resolved: 01-88-7893Xltkhvxtrgmd (1 source)History of COVID-19 Z86.16Onset: 02-14-2022 Resolved: 83-68-9012Vfoenjirdnaf (10 sources)Lumbar back pain; Translations: [Lumbar back pain]Unclassified (1 source)Vaccine counseling Z71.85Unclassified (6 sources)Onset: 06-19-2023 Resolved: Viral infection (20 sources)Disease caused by 2019-nCoV; Translations: [COVID-19]Onset: 01-11-2022 Resolved: 01-11-2022 Results Test NameValueInterpretationReference RangeFacilityTRANSTHORACIC ECHO (TTE) COMPLETEon 65-42-4189YINFJOMBPZAEI ECHO (TTE) COMPLETENortYadkin Valley Community Hospital [address], [address], [place] [address] TRANSTHORACIC ECHOCARDIOGRAM REPORT Patient Name: LAVONNE VILLATORO Reading Physician: [id number] Shy Wolf MD, [facility] Study Date: 12/21/2024 Ordering Provider: [id number] SHY WOLF MRN/PID: [id number] Fellow: Nurse: Date of /Age: 3 1935 / years [employer] Consultant: Sheridan Lemus RDCS, T Gender Assigned at F Additional Staff: : Height: 157.48 cm Admit Date: Weight: 65.77 kg Admission Status: Outpatient BSA / BMI: 1.67 m2 / 26.52 Department Location: [facility] kg/m2 [place] Blood Pressure: 146 /68 mmHg Study Type: TRANSTHORACIC ECHO (TTE) COMPLETE Diagnosis/ICD: Nonrheumatic aortic (valve) stenosis-I35.0 Indication: HTN, Hyperlipidemia, 2/6 Systolic Murmur, Hypothyroid CPT Codes: Echo Complete w Full Doppler-45110 Study Detail: The following Echo studies were [...] AoV Area,Vmax: 0.85 cm (more content not included)...[facility] Transthoracicon 92-51-8156Yysttu Valve Area by Continuity of Peak Velocity0.85 oy9ImkeuipgwjProMedica Fostoria Community Hospital Work Phone: [phone] Valve Area by Continuity of VTI0.9 cm2 [facility] Work Phone: [phone] mn xsny79otUrQrgbnloiwkSalem Regional Medical Center Work Phone: [phone] pk urna74uwQzHoekejcpadSalem Regional Medical Center Work Phone: [phone] pk vel3.27 m/[facility] Work Phone: [phone] vol index A/L43.4 ml/z2PooxpwcnudSalem Regional Medical Center Work Phone: [phone] A4C EF76.9UnSalem Regional Medical Center Work Phone: [phone] Biplane EF71 %[facility] Work Phone: [phone] EF68 %[facility] Work Phone: [phone] cmUnSalem Regional Medical Center Work Phone: [phone] diam1.89 cmUnSalem Regional Medical Center Work Phone: [phone] avg E/e' ratio15.93UnSalem Regional Medical Center Work Phone: [phone] E/A wktkg5ZhxlyqaiiaSalem Regional Medical Center Work Phone: [phone] free wall pk S'11.98 cm/[facility] Work Phone: [phone]m Regional Medical Center Work Phone: [phone] annular plane systolic excursion2.4 cm [facility] Work Phone: [address], [address] [place] [address] TRANSTHORACIC ECHOCARDIOGRAM REPORT Patient Name: LAVONNE Bahena Physician: [id number] Shy Wolf MD, [facility] Study Date: 12/21/2024 Ordering Provider: [id number] SHY WOLF MRN/PID: [id number] Fellow: Nurse: Date of /Age: 3 1935 / 89 years [employer] Consultant: Sheridan Lemus RDCS, RVT Gender Assigned at F Additional Staff: : Height: 157.48 cm Admit Date: Weight: 65.77 kg Admission Status: Outpatient BSA / BMI: 1.67 m2 / 26.52 Department Location: [facility] Heart kg/m2 [place] Blood Pressure: 146 /68 mmHg Study Type: TRANSTHORACIC ECHO (TTE) COMPLETE Diagnosis/ICD: Nonrheumatic aortic (valve) stenosis-I35.0 Indication: HTN, Hyperlipidemia, 2/6 Systolic Murmur, Hypothyroid CPT Codes: Echo Complete w Full Doppler-71952 Study Detail: The following Echo studies were [...] content not included)...Shy Kenney MD - 12/21/[address] [facility] [address], [address], [place] [address] TRANSTHORACIC ECHOCARDIOGRAM REPORT Patient Name: LAVONNE VILLATORO Reading Physician: [id number] Shy Wolf MD, [facility] Study Date: 12/21/2024 Ordering Provider: [id number] SHY WOLF MRN/PID: [id number] Fellow: Nurse: Date of /Age: 3 1935 / 89 years [employer] Consultant: Sheridan Lemus RDCS, RVT Gender Assigned at F Additional Staff: : Height: 157.48 cm Admit Date: Weight: 65.77 kg Admission Status: Outpatient BSA / BMI: 1.67 m2 / 26.52 Department Location: [facility] kg/m2 [place] Blood Pressure: 146 /68 mmHg Study Type: TRANSTHORACIC ECHO (TTE) COMPLETE Diagnosis/ICD: Nonrheumatic aortic (valve) stenosis-I35.0 Indication: HTN, Hyperlipidemia, 2/6 Systolic Murmur, Hypothyroid CPT Codes: Echo Complete w Full Doppler-14031 Study Detail: The following Echo studies were [...] cm (18-25cm) LVOT VTI: (more content not included)...[facility] Work Phone: UnSal[facility] Work Phone: Complete Blood Count Auto Diffon 91-32-4925Aiafolsaq (Bld) [#/Vol]0.1 10*3/uLNormal0.0-0.2The Critical Access Hospital Physician GroupComment on above:Performed By: #### [id number], CMP, TSH3, LIPID, CBC, T4F, ESR #### [facility] [address] [place] [address] USABasophils/100 WBC (Bld)1.1 %Normal.The Critical Access Hospital Physician GroupComment on above:Performed By: #### [id number], CMP, TSH3, LIPID, CBC, T4F, ESR #### [place] [address] USAEosinophils (Bld) [#/Vol]0.1 10*3/uLNormal0.0-0.45The Critical Access Hospital Physician GroupComment on above:Performed By: #### [id number], CMP, TSH3, LIPID, CBC, T4F, ESR #### [place] [address] USAEosinophils/100 WBC (Bld)2.2 %Normal.The Critical Access Hospital Physician GroupComment on above:Performed By: #### [id number], CMP, TSH3, LIPID, CBC, T4F, ESR #### [place] [address] USAErythrocyte distribution width (RBC) [Ratio]13.5 %Normal 11.9-15.3The Critical Access Hospital Physician GroupComment on above:Performed By: #### [id number], CMP, TSH3, LIPID, CBC, T4F, ESR #### [place] [address] USAHematocrit (Bld) [Volume fraction]37.9 %Knqndr38.0-46.4The Critical Access Hospital Physician GroupComment on above:Performed By: #### [id number], CMP, TSH3, LIPID, CBC, T4F, ESR #### [place] [address] USAHemoglobin (Bld) [Mass/Vol]12.9 g/tNPypesl95.8-15.4The Critical Access Hospital Physician GroupComment on above:Performed By: #### [id number], CMP, TSH3, LIPID, CBC, T4F, ESR #### [place] [address] USALymphocytes (Bld) [#/Vol]2.2 10*3/uLNormal1.00-4.8The Critical Access Hospital Physician GroupComment on above:Performed By: #### [id number], CMP, TSH3, LIPID, CBC, T4F, ESR #### [place] [address] USALymphocytes/100 WBC (Bld)34.3 %Normal.The Critical Access Hospital Physician GroupComment on above:Performed By: #### [id number], CMP, TSH3, LIPID, CBC, T4F, ESR #### [address] Lopez StreetH (RBC) [Entitic mass]33.5 ggRrslvo33.7-34.3The Critical Access Hospital Physician GroupComment on above:Performed By: #### [id number], CMP, TSH3, LIPID, CBC, T4F, ESR #### [address]V (RBC) [Entitic vol]98.4 gSVdbhlk22-695Pqb Critical Access Hospital Physician GroupComment on above:Performed By: #### [id number], CMP, TSH3, LIPID, CBC, T4F, ESR #### [place] [address] USAMean Corpuscular HGB Conc34.1 g/bPAxzive37.0-35.0The Critical Access Hospital Physician GroupComment on above:Performed By: #### [id number], CMP, TSH3, LIPID, CBC, T4F, ESR #### [place] [address] USAMonocytes (Bld) [#/Vol]0.6 10*3/uLNormal0.0-0.8The Critical Access Hospital Physician GroupComment on above:Performed By: #### [id number], CMP, TSH3, LIPID, CBC, T4F, ESR #### [place] [address] USAMonocytes/100 WBC (Bld)9.8 %Normal.The Critical Access Hospital Physician GroupComment on above:Performed By: #### [id number], CMP, TSH3, LIPID, CBC, T4F, ESR #### [facility] [address] [place] [address] USANeutrophils (Bld) [#/Vol]3.4 10*3/uLNormal1.8-7.7The Critical Access Hospital Physician GroupComment on above:Performed By: #### [id number], CMP, TSH3, LIPID, CBC, T4F, ESR #### [place] [address] USANeutrophils/100 WBC (Bld)52.6 %Normal.The Critical Access Hospital Physician GroupComment on above:Performed By: #### [id number], CMP, TSH3, LIPID, CBC, T4F, ESR #### [place] [address] USANRBC%0.3 /100{WBC}Normal0-0.5The [facility] Comment on above:Performed By: #### [id number], CMP, TSH3, LIPID, CBC, T4F, ESR #### [place] [address] USAPlatelet mean volume (Bld) [Entitic vol]9.3 fLNormal 6.3-10.7The Critical Access Hospital Physician GroupComment on above:Performed By: #### [id number], CMP, TSH3, LIPID, CBC, T4F, ESR #### [place] [address] USAPlatelets (Bld) [#/Vol]208 10*3/yEVxbpyb972-058Elo Critical Access Hospital Physician GroupComment on above:Performed By: #### [id number], CMP, TSH3, LIPID, CBC, T4F, ESR #### [place] [address] USARBC (Bld) [#/Vol]3.85 10*6/uLNormal3.60-5.00The Critical Access Hospital Physician GroupComment on above:Performed By: #### [id number], CMP, TSH3, LIPID, CBC, T4F, ESR #### [place] [id number] USAWBC (Bld) [#/Vol]6.6 10*3/uLNormal3.8-11.6The Critical Access Hospital Physician GroupComment on above:Performed By: #### [id number], CMP, TSH3, LIPID, CBC, T4F, ESR #### [place] [address] USAComprehensive Metabolic Panelon [id number] [Mass/Vol]3.7 g/dLNormal3.5-5.7The Critical Access Hospital Physician GroupComment on above: Performed By: #### [id number], CMP, TSH3, LIPID, CBC, T4F, ESR #### [place] [address] USAAlbumin/Globulin [Mass ratio]1.9 {ratio}NormalThe Critical Access Hospital Physician GroupComment on above:Performed By: #### [id number], CMP, TSH3, LIPID, CBC, T4F, ESR #### [place] [address] USAALP [Catalytic activity/Vol]62 U/XYuiiuc67-427Ipj [facility] Hospital Physician GroupComment on above:Performed By: #### [id number], CMP, TSH3, LIPID, CBC, T4F, ESR #### [place] [address] USAALT [Catalytic activity/Vol]21 U/LNormal7-52The [facility] Access Hospital Physician GroupComment on above:Performed By: #### [id number], CMP, TSH3, LIPID, CBC, T4F, ESR #### [place] [address] USAAnion gap [Moles/Vol]8.2 mmol/LNormal6.0-15.0The [facility] Access Hospital Physician GroupComment on above:Performed By: #### [id number], CMP, TSH3, LIPID, CBC, T4F, ESR #### [place] [address] USAAST [Catalytic activity/Vol]19 U/QXyydxq54-34Lxb [facility] Hospital Physician GroupComment on above:Performed By: #### [id number], CMP, TSH3, LIPID, CBC, T4F, ESR #### [place] [address] USABilirubin [Mass/Vol]0.7 mg/dLNormal0.3-1.0The [facility] Access Hospital Physician GroupComment on above:Performed By: #### [id number], CMP, TSH3, LIPID, CBC, T4F, ESR #### [place] [address] USACalcium [Mass/Vol]9.7 mg/dLNormal8.6-10.3The Critical Access Hospital Physician GroupComment on above:Performed By: #### [id number], CMP, TSH3, LIPID, CBC, T4F, ESR #### [place] [address] USAChloride [Moles/Vol]107 mmol/RQltkvt97-207Fme [facility] Access Hospital Physician GroupComment on above:Performed By: #### [id number], CMP, TSH3, LIPID, CBC, T4F, ESR #### [place] [address] USACO2 [Moles/Vol]31.5 mmol/LHigh21.0-31.0The [facility] Access Hospital Physician GroupComment on above:Performed By: #### [id number], CMP, TSH3, LIPID, CBC, T4F, ESR #### [place] [address] USACreatinine [Mass/Vol]0.67 mg/dLNormal0.60-1.20The Critical Access Hospital Physician GroupComment on above:Performed By: #### [id number], CMP, TSH3, LIPID, CBC, T4F, ESR #### [place] [address] USAGFR/1.73 sq M.predicted MDRD (S/P/Bld) [Vol rate/Area] mL/min/{1.73_m2}NormalThe Critical Access Hospital Physician GroupComment on above:Performed By: #### [id number], CMP, TSH3, LIPID, CBC, T4F, ESR #### [place] [address] USAGlobulin (S) [Mass/Vol]1.9 g/dLNormalThe Critical Access Hospital Physician GroupComment on above:Performed By: #### [id number], CMP, TSH3, LIPID, CBC, T4F, ESR #### [place] [address] USAGlucose [Mass/Vol]89 mg/xHHqsadj81-192Bhx Critical Access Hospital Physician GroupComment on above:Result Comment: Random Glucose Reference Range is dependent on time and content of last meal. Glucose of more than 200 mg/dL in a nonstressed, ambulatory subject supports the diagnosis of Diabetes Mellitus. ADA recommended reference rangePerformed By: #### [id number], CMP, TSH3, LIPID, CBC, T4F, ESR #### [place] [address] USAPotassium [Moles/Vol]3.7 mmol/LNormal3.5-5.1The Critical Access Hospital Physician GroupComment on above:Performed By: #### [id number], CMP, TSH3, LIPID, CBC, T4F, ESR #### [place] [address] USAProtein [Mass/Vol]5.6 g/dLLow6.4-8.9The Critical Access Hospital Physician GroupComment on above:Performed By: #### [id number], CMP, TSH3, LIPID, CBC, T4F, ESR #### [place] [address] USASodium [Moles/Vol]143 mmol/JWrcunj667-046Afn Critical Access Hospital Physician GroupComment on above:Performed By: #### [id number], CMP, TSH3, LIPID, CBC, T4F, ESR #### [place] [address] USAUrea nitrogen [Mass/Vol]19 mg/dLNormal7-25The Critical Access Hospital Physician GroupComment on above:Performed By: #### [id number], CMP, TSH3, LIPID, CBC, T4F, ESR #### [facility] [address] [place] [id number] USAErythrocyte Sedimentation Rateon 16-63-2256AWN (Bld) [Velocity]9 mm/hNormal0-29The Critical Access Hospital Physician GroupComment on above:Result Comment: PERFORMED BY: [place] [address] PATHOLOGIST LABEL MAKER JASIEL HURTADO M.D.Performed By: #### [id number], CMP, TSH3, LIPID, CBC, T4F, ESR #### [place] [address] USAFree T4 (Free Thyroxine)on 01-67-5837Uzgw T4 [Mass/Vol] 0.74 ng/dLNormal0.61-1.12The Critical Access Hospital Physician GroupComment on above:Performed By: #### LIPID, TSH3, CMP, CBC #### [place] [address] USALipid Panelon 04-63-3423Cqfzbjcnfuv [Mass/Vol]228 mg/dL Jldl475-870Pnb Critical Access Hospital Physician GroupComment on above:Result Comment: Chol less than 200 mg/dl low risk Chol 201-239 mg/dl borderline risk Chol 240 mg/dl and greater high riskPerformed By: #### [id number], CMP, TSH3, LIPID, CBC, T4F, ESR #### [place] [id number] USACholesterol in HDL [Mass/Vol]96 mg/gWXxjs56-45Edg Critical Access Hospital Physician GroupComment on above:Result Comment: HDL CHOL ATP-III CLASSIFICATION Cardiovascular Risk HDL > or equal to 60 mg/dL LOW HDL < 40 mg/dL HIGHPerformed By: #### [id number], CMP, TSH3, LIPID, CBC, T4F, ESR #### [place] [id number] USACholesterol.total/Cholesterol in HDL [Mass ratio]2.4 {ratio}Normal<5.0The Critical Access Hospital Physician GroupComment on above:Performed By: #### [id number], CMP, TSH3, LIPID, CBC, T4F, ESR #### [facility] [address] [place] [address] USALDL Cholesterol,Mgcszyjmog005 mg/dLHigh0-100The Critical Access Hospital Physician GroupComment on above:Result Comment: LDL ATP III CLASSIFICATION LDL less than 100 mg/dL Optimal LDL 100-129 mg/dL Near or above optimal LDL 130-159 mg/dL Borderline high LDL 160-189 mg/dL High LDL greater than 189 mg/dL Very highPerformed By: #### [id number], CMP, TSH3, LIPID, CBC, T4F, ESR #### [facility] [address] [place] [address] USATriglyceride w/Vqytzb16 mg/dLNormal0-149The Critical Access Hospital Physician GroupComment on above:Result Comment: TRIG ATP III CLASSIFICATION TRIG less than 150 mg/dL Normal TRIG 150-199 mg/dL Borderline high TRIG 200-500 mg/dL High TRIG greater than 500 mg/dL Very high Standard traceable to the Center for Disease Conrtrol and Prevention (CDC) test method.Performed By: #### [id number], CMP, TSH3, LIPID, CBC, T4F, ESR #### [facility] [address] [place] [address] USAVLDL VVYZOEVJJIN51 mg/dLNormalThe Critical Access Hospital Physician GroupComment on above:Performed By: #### [id number], CMP, TSH3, LIPID, CBC, T4F, ESR #### [facility] [address] [place] [address] USAThyroid Stimulating Hormoneon 86-59-4453NCC Qn6.38 m[IU]/L High0.45-5.33The Critical Access Hospital Physician GroupComment on above:Performed By: #### LIPID, TSH3, CMP, CBC #### [facility] [address] [place] [address] USAVitamin D 25 Hydroxy Totalon 99-42-6530Lpkxque D 25 Hydroxy Total28.4 ng/fJUex43-645Aat Critical Access Hospital Physician GroupComment on above: Result Comment: VITAMIN D STATUS 25(OH)VITAMIN D RANGE (ng/mL) Deficient <20 Insufficient 20 to <30 Sufficient 30 to 100 Reference: Yolanda ARIAS,Nathan NC, Keshawn FRANCO, et al. Evaluation,treatment, and prevention of vitamin D deficiency; an Endocrine Society clinical practice guideline. JCEM. 2010; 96(7):1911-30. PERFORMED BY: [place] [address] PATHOLOGIST LABEL MAKER JASIEL HURTADO M.D.Performed By: #### LIPID, TSH3, CMP, CBC #### [place] [address] USAXR scapula LT*on 94-52-1045UK scapula LT*[facility] [address] [place] [address] [place] [address] XRay Report Signed Patient: Lavonne Villatoro MR#: [id number] : 1935 Acct:[id number] Age/Sex: 88 / F ADM Date: 05/25/24 Loc: Room: Type: [facility] Attending Dr: Suhas Garrett DO Copies to: Suhas Garrett DO Ordering Provider: Suhas Garrett DO Date of Service: 05/25/24 XR/XR shoulder LT min 2V*: M25.519 - Pain in unspecified shoulder ([id number]) XR/XR scapula LT*: M25.519 - Pain in [...] Casandra Gómez M.D.05/25/2024 4:45 PM Dictation Location: [place] [address] Transcribed By: [facility] 05/25/241644 Dictated By: Casandra Gómez MD 05/25/241641 Signed By: 05/25/24 1645[facility] Physician GroupTRANSTHORACIC ECHO (TTE) COMPLETEon 01-63-1304HGHIGGEGZOOGV ECHO (TTE) COMPLETENo[address], [address] [place] [address] TRANSTHORACIC ECHOCARDIOGRAM REPORT Patient Name: LAVONNE VILLATORO Reading Physician: [id number] Shy Wolf MD, [facility] Study Date: 02/11/2024 Ordering Provider: [id number] SHY WOLF MRN/PID: [id number] Fellow: Nurse: Date of /Age: 3 1935 / 88 years [employer] Consultant: LILIA Gender: F Additional Staff: Height: 157.48 cm Admit Date: Weight: 69.40 kg Admission Status: BSA / BMI: 1.71 m2 / 27.98 kg/m2 Department Location: [facility] Blood Pressure: 116 /76 mmHg Study Type: TRANSTHORACIC ECHO (TTE) COMPLETE Diagnosis/ICD: Nonrheumatic aortic (valve) stenosis-I35.0 Indication: HTN, Hyperlipidemia, 3/6 Systolic Murmur, Hypothryoid, Overweight CPT Codes: Echo Complete w Full Doppler-61355 Study Detail: The following Echo studies were [...] mmHg PIEDV: 2.23 m/s PADP: 22.9 mmHg [id number] Shy Wolf MD, FACC Electronical (more content not included)...[facility] BIon 35-70-6217EW carotid doppler [facility] Main [place] [address] [place] [address] Ultrasound Report Signed Patient: Lavonne Villatoro MR#: [id number] : 1935 Acct:[id number] Age/Sex: 88 / F ADM Date: 10/14/23 Loc: Room: Type: [facility] Attending Dr: Suhas Garrett DO Ordering [...] Hola Wynn M.D.10/15/2023 11:47 AM Dictation Location: [place] [address] Tech: Jackie Aguillon Transcribed By: KIRILL 10/15/23 1147 Dictated By: Hola Wynn MD 10/15/23 1145 Signed By: 10/15/23 1147[facility] CenterComplete Blood Count Auto Diffon 20-96-0847Yevzyolse (Bld) [#/Vol]0.0 10*3/uLNormal0.0-0.2The Critical Access Hospital Physician GroupComment on above:Result Comment: PERFORMED BY: [place] [address] PATHOLOGIST LABEL MAKER JODY SOLANO M.D.Performed By: #### LIPID, TSH3, CMP, CBC #### [place] [address] USABasophils/100 WBC (Bld)0.7 %Normal.The Critical Access Hospital Physician GroupComment on above:Performed By: #### LIPID, TSH3, CMP, CBC #### [place] [address] USAEosinophils (Bld) [#/Vol]0.1 10*3/uLNormal0.0-0.45The Critical Access Hospital Physician GroupComment on above:Performed By: #### LIPID, TSH3, CMP, CBC #### [place] [address] USAEosinophils/100 WBC (Bld)1.6 %Normal.The Critical Access Hospital Physician GroupComment on above:Performed By: #### LIPID, TSH3, CMP, CBC #### [place] [address] USAErythrocyte distribution width (RBC) [Ratio]14.8 %Normal 11.9-15.3The Critical Access Hospital Physician GroupComment on above:Performed By: #### LIPID, TSH3, CMP, CBC #### [place] [address] USAHematocrit (Bld) [Volume fraction]39.9 %Vghaom15.0-46.4The Critical Access Hospital Physician GroupComment on above:Performed By: #### LIPID, TSH3, CMP, CBC #### [place] [address] USAHemoglobin (Bld) [Mass/Vol]13.2 g/oKQivcle86.8-15.4The Critical Access Hospital Physician GroupComment on above:Performed By: #### LIPID, TSH3, CMP, CBC #### [place] [address] USALymphocytes (Bld) [#/Vol]2.6 10*3/uLNormal1.00-4.8The Critical Access Hospital Physician GroupComment on above:Performed By: #### LIPID, TSH3, CMP, CBC #### [place] [address] USALymphocytes/100 WBC (Bld)43.5 %Normal.The Critical Access Hospital Physician GroupComment on above:Performed By: #### LIPID, TSH3, CMP, CBC #### [place] [address] USAMCH (RBC) [Entitic mass]33.2 sqYmlbco21.7-34.3The Critical Access Hospital Physician GroupComment on above:Performed By: #### LIPID, TSH3, CMP, CBC #### [place] [address] USAV (RBC) [Entitic vol]100.5 gLFezf38-675Tci Critical Access Hospital Physician GroupComment on above:Performed By: #### LIPID, TSH3, CMP, CBC #### [place] [address] USAMean Corpuscular HGB Conc33.0 g/jDJrxqsw95.0-35.0The Critical Access Hospital Physician GroupComment on above:Performed By: #### LIPID, TSH3, CMP, CBC #### [place] [address] USAMonocytes (Bld) [#/Vol]0.6 10*3/uLNormal0.0-0.8The Critical Access Hospital Physician GroupComment on above:Performed By: #### LIPID, TSH3, CMP, CBC #### [place] [address] USAMonocytes/100 WBC (Bld)9.7 %Normal.The Critical Access Hospital Physician GroupComment on above:Performed By: #### LIPID, TSH3, CMP, CBC #### [place] [address] USANeutrophils (Bld) [#/Vol]2.7 10*3/uLNormal1.8-7.7The Critical Access Hospital Physician GroupComment on above:Performed By: #### LIPID, TSH3, CMP, CBC #### [place] [address] USANeutrophils/100 WBC (Bld)44.5 %Normal.The Critical Access Hospital Physician GroupComment on above:Performed By: #### LIPID, TSH3, CMP, CBC #### [place] [address] USANRBC%0.2 /100{WBC}Normal0-0.5The [facility] Physician Group Comment on above:Performed By: #### LIPID, TSH3, CMP, CBC #### [place] [address] USAPlatelet mean volume (Bld) [Entitic vol]9.2 fLNormal 6.3-10.7The Critical Access Hospital Physician GroupComment on above:Performed By: #### LIPID, TSH3, CMP, CBC #### [place] [address] USAPlatelets (Bld) [#/Vol]229 10*3/iBGsfste011-388Cgm Critical Access Hospital Physician GroupComment on above:Performed By: #### LIPID, TSH3, CMP, CBC #### [place] [address] USARBC (Bld) [#/Vol]3.98 10*6/uLNormal3.60-5.00The Critical Access Hospital Physician GroupComment on above:Performed By: #### LIPID, TSH3, CMP, CBC #### [facility] [address] [place] [address] USAWBC (Bld) [#/Vol]6.0 10*3/uLNormal3.8-11.6The Critical Access Hospital Physician GroupComment on above:Performed By: #### LIPID, TSH3, CMP, CBC #### [place] [address] USAComprehensive Metabolic Panelon 49-45-9790Fjeazef [Mass/Vol]3.8 g/dLNormal3.5-5.7The Critical Access Hospital Physician GroupComment on above: Performed By: #### LIPID, TSH3, CMP, CBC #### [place] [address] USAAlbumin/Globulin [Mass ratio]1.7 {ratio}NormalThe Critical Access Hospital Physician GroupComment on above:Performed By: #### LIPID, TSH3, CMP, CBC #### [place] [address] USAALP [Catalytic activity/Vol]72 U/JUfbzpl88-272Uqp Critical Access Hospital Physician GroupComment on above:Performed By: #### LIPID, TSH3, CMP, CBC #### [place] [address] USAALT [Catalytic activity/Vol]43 U/LNormal7-52The Critical Access Hospital Physician GroupComment on above:Performed By: #### LIPID, TSH3, CMP, CBC #### [place] [address] USAAnion gap [Moles/Vol]8.9 mmol/LNormal6.0-15.0The Critical Access Hospital Physician GroupComment on above:Performed By: #### LIPID, TSH3, CMP, CBC #### [place] [address] USAAST [Catalytic activity/Vol]23 U/ZSijmee73-44Ofs Critical Access Hospital Physician GroupComment on above:Performed By: #### LIPID, TSH3, CMP, CBC #### [place] [address] USABilirubin [Mass/Vol]1.2 mg/dLHigh0.3-1.0The Critical Access Hospital Physician GroupComment on above:Performed By: #### LIPID, TSH3, CMP, CBC #### [place] [address] USACalcium [Mass/Vol]9.5 mg/dLNormal8.6-10.3The Critical Access Hospital Physician GroupComment on above:Performed By: #### LIPID, TSH3, CMP, CBC #### [facility] [address] [place] [address] USAChloride [Moles/Vol]107 mmol/UPnciuo51-254Xlp Critical Access Hospital Physician GroupComment on above:Performed By: #### LIPID, TSH3, CMP, CBC #### [place] [address] USACO2 [Moles/Vol]30.0 mmol/QVfxlaz91.0-31.0The Critical Access Hospital Physician GroupComment on above:Performed By: #### LIPID, TSH3, CMP, CBC #### [place] [address] USACreatinine [Mass/Vol]0.76 mg/dLNormal0.60-1.20The Critical Access Hospital Physician GroupComment on above:Performed By: #### LIPID, TSH3, CMP, CBC #### [place] [address] USAGFR/1.73 sq M.predicted MDRD (S/P/Bld) [Vol rate/Area] mL/min/{1.73_m2}NormalThe Critical Access Hospital Physician GroupComment on above:Performed By: #### LIPID, TSH3, CMP, CBC #### [place] [address] USAGlobulin (S) [Mass/Vol]2.2 g/dLNormalThe Critical Access Hospital Physician GroupComment on above:Performed By: #### LIPID, TSH3, CMP, CBC #### [place] [address] USAGlucose [Mass/Vol]79 mg/hHVmxxur50-880Tsv Critical Access Hospital Physician GroupComment on above:Result Comment: Random Glucose Reference Range is dependent on time and content of last meal. Glucose of more than 200 mg/dL in a nonstressed, ambulatory subject supports the diagnosis of Diabetes Mellitus. ADA recommended reference rangePerformed By: #### LIPID, TSH3, CMP, CBC #### [facility] [address] [place] [address] USAPotassium [Moles/Vol]3.9 mmol/LNormal3.5-5.1The Critical Access Hospital Physician GroupComment on above:Performed By: #### LIPID, TSH3, CMP, CBC #### [facility] [address] [place] [address] USAProtein [Mass/Vol]6.0 g/dLLow6.4-8.9The Critical Access Hospital Physician GroupComment on above:Performed By: #### LIPID, TSH3, CMP, CBC #### [facility] [address] [place] [address] USASodium [Moles/Vol]142 mmol/PGedhrf059-123Vxf Critical Access Hospital Physician GroupComment on above:Performed By: #### LIPID, TSH3, CMP, CBC #### [facility] [address] [place] [address] USAUrea nitrogen [Mass/Vol]22 mg/dLNormal7-25The Critical Access Hospital Physician GroupComment on above:Performed By: #### LIPID, TSH3, CMP, CBC #### [place] [address] USALipid Panelon 43-22-1181Kqmzpcdyjfo [Mass/Vol]243 mg/dL Kker723-189Tnx Critical Access Hospital Physician GroupComment on above:Result Comment: Chol less than 200 mg/dl low risk Chol 201-239 mg/dl borderline risk Chol 240 mg/dl and greater high riskPerformed By: #### LIPID, TSH3, CMP, CBC #### [place] [address] USACholesterol in HDL [Mass/Vol]98 mg/jFOjav24-76Hnt Critical Access Hospital Physician GroupComment on above:Result Comment: HDL CHOL ATP-III CLASSIFICATION Cardiovascular Risk HDL > or equal to 60 mg/dL LOW HDL < 40 mg/dL HIGHPerformed By: #### LIPID, TSH3, CMP, CBC #### [facility] [address] [place] [id number] USACholesterol.total/Cholesterol in HDL [Mass ratio]2.5 {ratio}Normal<5.0The Critical Access Hospital Physician GroupComment on above:Performed By: #### LIPID, TSH3, CMP, CBC #### [facility] [address] [place] [address] USALDL Cholesterol,Gctzkuieii949 mg/dLHigh0-100The Critical Access Hospital Physician GroupComment on above:Result Comment: LDL ATP III CLASSIFICATION LDL less than 100 mg/dL Optimal LDL 100-129 mg/dL Near or above optimal LDL 130-159 mg/dL Borderline high LDL 160-189 mg/dL High LDL greater than 189 mg/dL Very highPerformed By: #### LIPID, TSH3, CMP, CBC #### [place] [address] USATriglyceride w/Fcyfcs044 mg/dLNormal0-149The Critical Access Hospital Physician GroupComment on above:Result Comment: TRIG ATP III CLASSIFICATION TRIG less than 150 mg/dL Normal TRIG 150-199 mg/dL Borderline high TRIG 200-500 mg/dL High TRIG greater than 500 mg/dL Very high Standard traceable to the Center for Disease Conrtrol and Prevention (CDC) test method.Performed By: #### LIPID, TSH3, CMP, CBC #### [place] [address] USAVLDL OYJKSHHHDEA50 mg/dLNormalThe Critical Access Hospital Physician GroupComment on above:Performed By: #### LIPID, TSH3, CMP, CBC #### [place] [id number] USAThyroid Stimulating Hormoneon 19-84-3056BNR Qn4.01 m[IU]/L Normal0.45-5.33The Critical Access Hospital Physician GroupComment on above:Result Comment: PERFORMED BY: [place] [address] PATHOLOGIST LABEL MAKER JODY SOLANO M.D.Performed By: #### LIPID, TSH3, CMP, CBC #### [facility] [address] [place] [address] USAComplete Blood Count Auto Diffon 77-62-8906Jlcpzvwig (Bld) [#/Vol]0.669688459 10*3/uLNormal0.0-0.2 10*3/[employer] Other Basophils/100 WBC (Bld)0.900 %. %[employer] Other Eosinophils (Bld) [#/Vol]0.602441168 10*3/uLNormal0.0- 0.45 10*3/[employer] Other Eosinophils/100 WBC (Bld)1.100 %. %[employer] Other Erythrocyte distribution width (RBC) [Ratio]14.000 % Iijuui20.9-15.3 %[employer] Other Hematocrit (Bld) [Volume fraction]37.700 %Iolmwt67.0- 46.4 %[employer] Other Hemoglobin (Bld) [Mass/Vol]12.116991 g/fHOafboz62.8- 15.4 g/dLNoCamerborn Other Lymphocytes (Bld) [#/Vol]2.318799721 10*3/uLNormal 1.00-4.8 10*3/[employer] Other Lymphocytes/100 WBC (Bld)35.100 %. %[employer] Other MCH (RBC) [Entitic mass]33.3000 quNluuvp04.7-34.3 pg [employer] Other MCV (RBC) [Entitic vol]99.7000 mPChwxxh08-285 fLOrgan[employer] Other Monocytes (Bld) [#/Vol]0.979182144 10*3/uLNormal0.0- 0.8 10*3/[employer] Other Monocytes/100 WBC (Bld)10.000 %. %[employer] Other Neutrophils (Bld) [#/Vol]3.896442272 10*3/uLNormal1.8- 7.7 10*3/[employer] Other Neutrophils/100 WBC (Bld)52.900 %. %[employer] Other Platelet mean volume (Bld) [Entitic vol]9.9000 fL Normal6.3-10.7 fLAurora [employer] Other Platelets (Bld) [#/Vol]224 10*3/xCZkyzjq594-238 10*3/[employer] Other RBC (Bld) [#/Vol]3.78 10*6/uLNormal3.60-5.00Aurora [employer] Other WBC (Bld) [#/Vol]7.905913899 10*3/uLNormal3.8-11.6 10*3/[employer] Other Complete Blood Count Auto Diff7.1 10*3/uLNormal3.8- 11.6 10*3/[employer] Other Complete Blood Count Auto Diff33.4 g/lKMgpnoi08.0-35.0 g/dLOrgan[employer] Other Complete Blood Count Auto Diff0.1 /100{WBC}Normal0-0.5 /100{WBC}[employer] Other Comprehensive Metabolic Panelon 73-84-2516Pkpdiqo [Mass/Vol]3.458367 g/dLNormal3.5-5.7 g/dLNoTopix [employer] Other Albumin/Globulin [Mass ratio]1.7 {ratio}[employer] Other ALP [Catalytic activity/Vol]140 U/IUagh84-612 U/FORVM Other ALT [Catalytic activity/Vol]71 U/LHigh7-52 U/[employer] Other AST [Catalytic activity/Vol]20 U/SFxnqxc44-74 U/FORVM Other Bilirubin [Mass/Vol]0.5157017 mg/dLNormal0.3-1.0 mg/dL [employer] Other Calcium [Mass/Vol]9.5302385 mg/dLNormal8.6-10.3 mg/dL [employer] Other Chloride [Moles/Vol]107 mmol/FRgveza79-583 mmol/FORVM Other CO2 [Moles/Vol]30.80578284 mmol/WTulpbl49.0-31.0 mmol/[employer] Other Creatinine [Mass/Vol]0.15292372 mg/dLNormal0.60-1.20 mg/dLNoCamerborn Other GFR/1.73 sq M.predicted MDRD (S/P/Bld) [Vol rate/Area] mL/min/{1.73_m2}[employer] Other Glucose [Mass/Vol]89 mg/eAQlnkhv30-006 mg/dLOrgan[employer] Other Potassium [Moles/Vol]3.38016784 mmol/LNormal3.5-5.1 mmol/FORVM Other Protein [Mass/Vol]6.945226 g/dLLow6.4-8.9 g/dLAurora [employer] Other Sodium [Moles/Vol]143 mmol/PDnfgxv573-044 mmol/LNcarondelet health [employer] Other Urea nitrogen [Mass/Vol]21 mg/dLNormal7-25 mg/dLAurora [employer] Other Comprehensive Metabolic Panel2.2 g/dLNomercy hospital st. [facility] [employer] Other Free T4 (Free Thyroxine)on 91-07-2005Nmrt T4 [Mass/Vol]1.50245008 ng/dLHigh0.61-1.12 ng/dLAurora [employer] Other Thyroid Antibodies TPO+Tg Abon 36-92-2047Kyedgbt Antibodies TPO+Tg Ie922-05Wlsjo [employer] Other Thyroid Antibodies TPO+Tg Ab<1.00.0-0.9Aurora [employer] Other Thyroid Stimulating Hormoneon 08-46-3215CWL Qn 2.16717982701 m[IU]/LNormal0.45-5.33 u[iU]/mLNApplied [employer] Other Echocardiogramon 41-88-9000MdxrntqwjretfvxmMnoziBrandon Ville [address] TRANSTHORACIC ECHOCARDIOGRAM REPORT Patient Name: LAVONNE Bahena Physician: [id number] [facility]y Wolf [facility] Study Date: 02/26/2023 Referring SHY WOLF Physician: MRN/PID: [id number] PCP: Suhas Garrett MD Accession/Order#: [id number] [facility] Location: Date of : 1935 Fellow: Gender: F Nurse: Admit Date: [employer] Consultant: Sheridan Escalantez RDCS, RVT Height: 157.48 cm CC Report to: Weight: 67.13 kg Study Type: Echocardiogram BSA: 1.68 m2 Blood Pressure: 122 /76 mmHg Diagnosis/ICD: I35.0-Nonrheumatic aortic (valve) stenosis; R01.1-Cardiac murmur, unspecified Indication: HTN, Hyperlipidemia, Overweight, Hypothyroid, Polymyalgia Rheumatica Procedure/CPT: Echo Complete w Full [id number] Study Detail: The following Echo studies were [...] velocity across the aortic valve has increased [id number] cm/s up to 374 cm/s and aortic [...] mmHg PIEDV: 2.50 m/s PADP: 28.0 mmHg [id number] Shy Wolf MD, FACC Electronically signed on 03/01/2023 at 2:16:46 PM Final NormalPagosa Springs Medical CenterOffice Visit (Cardiology)on [id number]-up visitDiagnoses/Problems Assessed Aortic stenosis (424.1) (I35.0) Murmur, cardiac (785.2) (R01.1) Essential hypertension (401.9) (I10) Hyperlipidemia (272.4) (E78.5) Overweight with body mass index (BMI) of 27 to 27.9 in adult (278.02,V85.23) (E66.3,Z68.27) Never smoker Hypothyroidism (244.9) (E03.9) PMR (polymyalgia rheumatica) (725) (M35.3) Orders Aortic stenosis, Murmur, cardiac Echocardiogram; Status:Hold For - Scheduling,Retrospective Authorization; Requested for:[id number]; Essential hypertension, Hyperlipidemia Changed: From Aspirin EC 81 MG TBEC TAKE 1 TABLET To Aspirin 81 MG Oral Tablet Delayed Release TAKE 1 TABLET DAILY Overweight with body mass index (BMI) of 27 to 27.9 in adult Healthy Weight Tips; Status:Complete - Retrospective Authorization; Done: [id number] Some eating tips that can help you lose weight.; Status:Complete - Retrospective Authorization; Done: 01Rzp0556 SocHx: Never smoker Tobacco Use Screening; Status:Complete; Done: 30Nyv0043 Patient Instructions Please bring all medicines, vitamins, [...] is being tapered gradually Shy Wolf MD, [facility] Past Medical History Problems History of Carotid [...] Multi Vitamin Oral TabletTAKE 1 TABLET DAILY. [place]-3 Fish Oil 1000 MG Oral CapsuleTAKE 1 [...] negative for complaint. Vitals Vital Signs Recorded: 80Trc8969 11:32AM Heart Rate68, R Radial Widsttja337, RUE, Sitting Xaqkguoui91, RUE, Sitting Height5 ft 2 in Xglepu132 lb BMI Neppaagagb92.07 kg/m2 BSA Calculated1.68 Tobacco Useb) No PHQ-2 [...] included)...NormalUH TouchworksTobacco Screening.on 12-24-2022 Adult depression [facility]No[facility] MD [employer] [address] DO Work Phone: Fall risk assessmenta) No falls within the last year [facility] MD [employer] 250 DO Work Phone: Tobacco use status CPHSb) [facility] Work Phone: Complete Blood Count Auto Diffon 21-81-0977Lcwgdxveu (Bld) [#/Vol]0.308110125 10*3/uLNormal0.0-0.2 10*3/[employer] Other Basophils/100 WBC (Bld)0.700 %. %[employer] Other Eosinophils (Bld) [#/Vol]0.684326574 10*3/uLNormal0.0- 0.45 10*3/[employer] Other Eosinophils/100 WBC (Bld)0.700 %. %[employer] Other Erythrocyte distribution width (RBC) [Ratio]13.500 % Ifvzue99.9-15.3 %[employer] Other Hematocrit (Bld) [Volume fraction]38.400 %Lmactk66.0- 46.4 %[employer] Other Hemoglobin (Bld) [Mass/Vol]12.119719 g/pQJyqpkg30.8- 15.4 g/dLNoTopix [employer] Other Lymphocytes (Bld) [#/Vol]0.432305621 10*3/uLLow1.00- 4.8 10*3/[employer] Other Lymphocytes/100 WBC (Bld)12.600 %. %[employer] Other MCH (RBC) [Entitic mass]33.7000 xtFiorqd10.7-34.3 pg [employer] Other MCV (RBC) [Entitic vol]100.4000 mALgrq50-475 fLTopix [employer] Other Monocytes (Bld) [#/Vol]0.499773668 10*3/uLNormal0.0- 0.8 10*3/[employer] Other Monocytes/100 WBC (Bld)6.800 %. %[employer] Other Neutrophils (Bld) [#/Vol]5.200924088 10*3/uLNormal1.8- 7.7 10*3/[employer] Other Neutrophils/100 WBC (Bld)79.200 %. %[employer] Other Platelet mean volume (Bld) [Entitic vol]9.4000 fL Normal6.3-10.7 [facility] Other Platelets (Bld) [#/Vol]223 10*3/dGWsqxbe654-786 10*3/[employer] Other RBC (Bld) [#/Vol]3.8941919853 10*6/uLNormal3.60-5.00 10*6/[employer] Other WBC (Bld) [#/Vol]6.592150027 10*3/uLNormal3.8-11.6 10*3/[employer] Other Complete Blood Count Auto Diff6.6 10*3/uLNormal4.5- 11.0 10*3/[employer] Other Complete Blood Count Auto Diff33.6 g/qXYrlvst54.0-35.0 g/dLOrgan[employer] Other Complete Blood Count Auto Diff0.1 %Normal0-0.5 %[employer] Other Erythrocyte Sedimentation Rateon 03-64-7942AJR (Bld) [Velocity]28 mm/hNormal0-29Aurora [employer] Other VASC LAB Carotid Artery Duplex Ultrasoundon 02-21-2022 US.doppler Carotid arteriesLourdes [facility] Center MD [employer] [address] [place] Work Phone: COVID Quick Testingon 59-20-0633FkjwtbXblgpfgtUnmcp [employer] Other Falls Screening (Age 18+)on 30-96-9803Szea risk assessmenta) No falls within the last yearL[facility] MD [employer] 250 DO Work Phone: Office Visit (Cardiology)on 22-68-0602Teugak-up visit Diagnoses/Problems Assessed Essential hypertension (401.9) (I10) [...] Multi Vitamin Oral TabletTAKE 1 TABLET DAILY. [place] 3 500 CAPSTAKE 1 CAPSULE Daily predniSONE 5 MG Oral Dsczwp9VT 7.5MG BY MOUTH ONE DAILY ALTERNATING EVERY OTHER DAY Allergies Medication amoxicillin Hives;; Recorded By: Kayla Orr; 10/17/2021 10:50:34 AM Dilantin CAPS Rash; Recorded By: Kayla Orr; 10/17/2021 10:50:34 AM Fosamax eye pain; Recorded By: Kayla Orr; 10/17/2021 10:50:34 AM Depakote ER TB24 Recorded By: Kayla Orr; 10/17/2021 10:50:34 AM Vitals Vital Signs Recorded: 26Dec2021 11:04AMRecorded: 26Dec2021 11:00AM Heart Rate56, R Kqdfan98, R Radial Syabqxiv140, LUE, Oztjkpk551, RUE Jemajzjex36, LUE, Qjxaghu40, RUE Height5 ft 2 in5 ft 2 in Fzfesz185 lb 143 lb BMI Scnmgsyahy96.16 kg/m226.16 kg/m2 BSA Calculated1.661.66 Falls Screening (Age 18+)a) No falls within the last year Signatures Electronically signed by : Shy Wolf MD; Dec 26 2021 4:02PM EST (Author) [facility] TouchworksTobacco Screening.on 72-28-2529Qjzsn depression screening [facility]NoC[facility] Work Phone: Fall risk assessmenta) No falls within the last year [facility] Work Phone: Tobacco use status CPHSb) [facility] Work Phone: Vital Signs Date TimeVital SignValuePerforming TkndncmmiPwfocwrd89-67-8733 11:07-0400Body ybxxhc508.5 cmShy Wolf MD Work Phone: [facility]08-08-2025 11:07-0400 Body mass index (BMI) [Ratio]27.44 kg/c9ScegmiShy Wolf MD Work Phone: [facility]08-08-2025 11:07-0400 Body huqlwg45.04 kgShy Wolf MD Work Phone: [facility]08-08-2025 11:07-0400 Diastolic blood tnoqovlm98 mm[Hg]Shy Wolf MD Work Phone: 1(151)778-[address] [place], [place] 0525408-08-2025 11:07-0400 Heart rate60 /minShy Wolf MD Work Phone: 1(741)787-[address] [place], [place] 0525408-08-2025 11:07-0400 Systolic blood tgmdyvnr904 mm[Hg]Shy Wolf MD Work Phone: 1(935)403-[address] [place], [place] 0525407-15-2025 12:30-0400 Body znrsye832.[address]07-15-2025 12:30-0400 Body mass index (BMI) [Ratio]26.52 kg/m[address] 12-21-2024 12:30-0400Body phuboa90.[address] 12-21-2024 12:30-0400Diastolic blood wfvmiwfe51 mm[Hg][address]07-15-2025 12:30-0400Systolic blood oinlsdbp159 mm[Hg][address]07-02-2025 13:56-0400Diastolic blood mm[Hg]Reuben Burns RENEWABLE ENERGY CONSULTANT-ANGIOGRAPHY TECHNOLOGIST Work Phone: 3(670)810-[address] [place], [place] 0525407-02-2025 13:56-0400 Systolic blood kjjzqeqh561 mm[Hg]Reuben Burns RENEWABLE ENERGY CONSULTANT-ANGIOGRAPHY TECHNOLOGIST Work Phone: 2(546)934-[address] [place], [place] 0525407-01-2025 14:59-0400 Body amdkdq119.5 cmReuben Burns RENEWABLE ENERGY CONSULTANT-ANGIOGRAPHY TECHNOLOGIST Work Phone: 1(164)597-[address] [place], [place] 0525407-01-2025 14:59-0400 Body mass index (BMI) [Ratio]26.45 kg/n3DbxqiReuben Burns RENEWABLE ENERGY CONSULTANT-ANGIOGRAPHY TECHNOLOGIST Work Phone: 5(123)086-[address] [place], [place] 0525407-01-2025 14:59-0400 Body wjltus05.59 kgReuben Burns RENEWABLE ENERGY CONSULTANT-ANGIOGRAPHY TECHNOLOGIST Work Phone: 1(414)802-[address] [place], [place] 0525407-01-2025 14:59-0400 Heart rate62 /Torreymurali Burns RENEWABLE ENERGY CONSULTANT-ANGIOGRAPHY TECHNOLOGIST Work Phone: [facility]11-08-2024 13:16-0500 Body yqpksm628.5 cmShy Wolf MD Work Phone: [facility]11-08-2024 13:16-0500 Body mass index (BMI) [Ratio]26.67 kg/p2NtgwxhShy Wolf MD Work Phone: 7(717)499-[address] [place], [place] 0525411-08-2024 13:16-0500 Body zueqdc75.13 kgShy Wolf MD Work Phone: 0(522)404-[address] [place], [place] 0525411-08-2024 13:16-0500 Diastolic blood cpjllusl00 mm[Hg]Shy Wolf MD Work Phone: 6(400)614-[address] [place], [place] 0525411-08-2024 13:16-0500 Heart rate62 /minhSy Wolf MD Work Phone: 8(645)232-[address] [place], [place] 0525411-08-2024 13:16-0500 Systolic blood viguauig313 mm[Hg]Shy Wolf MD Work Phone: 0(953)933-[address] [place], [place] 0525409-04-2024 12:28-0400 Body qfsebw363.[address] [place], [place] 9363309-04-2024 12:28-0400 Body mass index (BMI) [Ratio]27.98 kg/m2Ely [address] [place] [address] 02-11-2024 12:28-0400Body xlitnr40.[address] [place] [address] 02-11-2024 12:28-0400Diastolic blood owxvvqco23 mm[Hg][address]09-04-2024 12:28-0400Systolic blood ulcasjwu318 mm[Hg][address]01-26-2024 11:15-0500Body wuvjqj657.48 cmSuhas Garrett Other [employer] Other [id number] 11:15-0500Body mass index (BMI) [Ratio] 28.53 kg/s4Iwudd Kunadan Other [employer] Other 01-26-2024 11:15-0500Body sjyawb51.76 kgCarterraquel Garrett Other [employer] Other 01-26-2024 11:15-0500Diastolic blood imnanibj36 mm[Hg] Suhas Ugo Other [employer] Other 01-26-2024 11:15-0500Respiratory rate20 /minSuhas Uog Other [employer] Other 01-26-2024 11:15-4838VeT9% (BldA) [Mass fraction]99 % Suhasraquel Mayoadan Other [employer] Other 01-26-2024 11:15-0500Systolic blood ibmlzdua398 mm[Hg] Suhas Garrett Other [employer] Other 01-11-2024 11:09-0500Body vwiodv286.5 cmShy Wolf MD Work Phone: [facility]01-11-2024 11:09-0500 Body mass index (BMI) [Ratio]27.98 kg/k1BpeswqShy Wolf MD Work Phone: [facility]01-11-2024 11:09-0500 Body vouqdn62.4 kgShy Wolf MD Work Phone: [facility]01-11-2024 11:09-0500 Diastolic blood mm[Hg]Shy Wolf MD Work Phone: [facility]01-11-2024 11:09-0500 Heart rate60 /minShy Wolf MD Work Phone: [facility]01-11-2024 11:09-0500 Systolic blood xidzbxfr671 mm[Hg]Shy Wolf MD Work Phone: [facility]12-22-2023 11:00-0500 Body kyfvou388.48 cmSuhas Garrett Other [employer] Other 342076-35-1215 11:00-0500Body mass index (BMI) [Ratio]27.8 kg/l8VdctiSuhas Garrett Other [employer] Other 12-22-2023 11:00-0500Body mxeexv99.95 kgSuhas Garrett Other [employer] Other 12-22-2023 11:00-0500Diastolic blood wupgqogm55 mm[Hg] Suhas Garrett Other [employer] Other 12-22-2023 11:00-0500Respiratory rate18 /minSuhas Garrett Other [employer] Other 12-22-2023 11:00-6295LaB0% (BldA) [Mass fraction]96 % Suhas Garrett Other [employer] Other 12-22-2023 11:00-0500Systolic blood uvyzmxvy305 mm[Hg] Suhas Garrett Other [employer] Other 09-22-2023 10:30-0400Body ruzdve278.48 cmSuhas Garrett Other [employer] Other 09-22-2023 10:30-0400Body mass index (BMI) [Ratio] 27.98 kg/c4Lxpxq Gaeladan Other [employer] Other 09-22-2023 10:30-0400Body ydxygv63.4 kgCarterraquel Garrett Other [employer] Other 09-22-2023 10:30-0400Diastolic blood vnbaihkj97 mm[Hg] Suhas Garrett Other [employer] Other 09-22-2023 10:30-0400Respiratory rate16 /minCarterraquel Garrett Other [employer] Other 09-22-2023 10:30-4035BoF0% (BldA) [Mass fraction]91 % Suhas Gaeladan Other [employer] Other 09-22-2023 10:30-0400Systolic blood fhfdrjji456 mm[Hg] Suhas Garrett Other [employer] Other 07-18-2023 11:32-0400Body hvchaf217.48 cmSuhas Hoffman Ugo Work Phone: 1(260) 386-8682144-4672UG-Nfntt [place] MD [employer] 250 DO Work Phone: 1(640) 201-250907-18-2023 11:32-0400Body mass index (BMI) [Ratio] 27.07 kg/e5Opebp P Ugo Work Phone: [phone]-Bbfti [place] MD [employer] 250 DO Work Phone: 1(226) 438-454507-18-2023 11:32-0400Body surface area Derived from formula1.68 b2Uhmbu P Gaels Work Phone: mp776-1706LL-Ucmpx [facility] 250 DO Work Phone: 1(919) 322-166707-18-2023 11:32-0400Body fcwycr62.13 kgSuhas Mayoadan Work Phone: mp102-8985MA-Zsxoh [place] [facility] 250 DO Work Phone: 1(628) 713-134507-18-2023 11:32-0400Diastolic blood kssqoivp63 mm[Hg] Suhas Garrett Work Phone: mp417-8346UX-Idzms [facility] 250 DO Work Phone: 1(920) 384-883207-18-2023 11:32-0400Heart rate68 /minSuhas Mayos Work Phone: mp145-7268WW-Qirwv [facility] 250 DO Work Phone: 1(914) 965-284107-18-2023 11:32-0400Systolic blood ukxtyrke025 mm[Hg] Suhas Garrett Work Phone: [phone]-Ghduc [facility] 250 DO Work Phone: 1(193) 484-303106-30-2023 10:30-0400Body aegynf370.48 cmSuhas Garrett Other [employer] Other 06-30-2023 10:30-0400Body mass index (BMI) [Ratio] 27.98 kg/u5AatvqSuhas Garrett Other [employer] Other 06-30-2023 10:30-0400Body .4 kgSuhas Garrett Other [employer] Other 06-30-2023 10:30-0400Diastolic blood fuzwjtbq60 mm[Hg] Suhas Garrett Other [employer] Other 06-30-2023 10:30-0400Respiratory rate16 /minSuhas Garrett Other [employer] Other 06-30-2023 10:30-1093AhN5% (BldA) [Mass fraction]98 % Suhas Garrett Other [employer] Other 06-30-2023 10:30-0400Systolic blood nfayoolc372 mm[Hg] Suhasraquel Garrett Other [employer] Other 04-14-2023 11:45-0400Body biwolh653.48 cmSuhas Garrett Other [employer] Other 04-14-2023 11:45-0400Body mass index (BMI) [Ratio] 26.34 kg/a5LnkddSuhas Garrett Other [employer] Other 04-14-2023 11:45-0400Body vmqsgi67.32 kgSuhas Garrett Other [employer] Other 04-14-2023 11:45-0400Diastolic blood togbjnvo96 mm[Hg] Suhas Garrett Other [employer] Other 04-14-2023 11:45-0400Respiratory rate16 /minSuhas Garrett Other [employer] Other 04-14-2023 11:45-9149XmD0% (BldA) [Mass fraction]98 % Suhasraquel Garrett Other [employer] Other 04-14-2023 11:45-0400Systolic blood inlobauv437 mm[Hg] Suhasraquel Mayoadan Other [employer] Other 02-13-2023 11:30-0500Body ptolqm159.48 cmSuhas Garrett Other [employer] Other 02-13-2023 11:30-0500Body mass index (BMI) [Ratio] 26.85 kg/h1YwptzSuhas Garrett Other [employer] Other 02-13-2023 11:30-0500Body duceff72.59 kgCarterraquel Garrett Other [employer] Other 02-13-2023 11:30-0500Diastolic blood mm[Hg] Suhas Ugo Other [employer] Other 02-13-2023 11:30-0500Respiratory rate16 /minBryraquel Garrett Other [employer] Other 02-13-2023 11:30-6549TfY9% (BldA) [Mass fraction]98 % Suhas Garrett Other [employer] Other 02-13-2023 11:30-0500Systolic blood piknopch624 mm[Hg] Suhas Garrett Other [employer] Other 11-09-2022 11:45-0500Body ffyapm039.48 cmCarterraquel Garrett Other [employer] Other 11-09-2022 11:45-0500Body mass index (BMI) [Ratio] 26.88 kg/i6Objfm Kuns Other [employer] Other 11-09-2022 11:45-0500Body mgipfl24.68 kgCarterraquel Garrett Other [employer] Other 11-09-2022 11:45-0500Diastolic blood amjlyhjb75 mm[Hg] Suhas Ugo Other [employer] Other 11-09-2022 11:45-0500Respiratory rate16 /minSuhas Garrett Other [employer] Other 11-09-2022 11:45-5494MiR8% (BldA) [Mass fraction]99 % Suhas Garrett Other [employer] Other 11-09-2022 11:45-0500Systolic blood modiwlqf869 mm[Hg] Suhas Garrett Other [employer] Other 09-16-2022 10:15-0400Body hsrlez705.48 cmSuhas Garrett Other [employer] Other 09-16-2022 10:15-0400Body mass index (BMI) [Ratio] 27.07 kg/g9Hgbcy Kunadan Other [employer] Other 09-16-2022 10:15-0400Body .13 kgCarterraquel Garrett Other [employer] Other 09-16-2022 10:15-0400Diastolic blood mm[Hg] Suhas Garrett Other [employer] Other 09-16-2022 10:15-0400Respiratory rate16 /minSuhas Garrett Other [employer] Other 09-16-2022 10:15-7978InL5% (BldA) [Mass fraction]97 % Suhas Garrett Other [employer] Other 09-16-2022 10:15-0400Systolic blood mm[Hg] Suhas Garrett Other [employer] Other 09-15-2022 10:45-378130 1Bprimo Garrett Work Phone: [phone]-[place] [address]A [place] Work Phone: Comment on above:[id number] 15:45-0400Body .48 cmSuhas Garrett Other [employer] Other 09-08-2022 15:45-0400Body mass index (BMI) [Ratio]26.7 kg/n0DxnueSuhas Garrett Other [employer] Other 09-08-2022 15:45-0400Body xuyhqv94.23 kgSuhas Garrett Other [employer] Other 09-08-2022 15:45-0400Diastolic blood yxltxgpx02 mm[Hg] Suhas Garrett Other [employer] Other 09-08-2022 15:45-0400Respiratory rate16 /minSuhas Garrett Other [employer] Other 09-08-2022 15:45-8863CnT8% (BldA) [Mass fraction]96 % Suahs Garrett Other [employer] Other 09-08-2022 15:45-0400Systolic blood nkixcnjb166 mm[Hg] Suhas Garrett Other [employer] Other 07-20-2022 11:04-0400Body ldukop444.48 cmSuhas Garrett Work Phone: [phone]-Oahwh [facility] 250 DO Work Phone: 1(244) 413-924407-20-2022 11:04-0400Body mass index (BMI) [Ratio] 26.16 kg/p6SotmsSuhas Garrett Work Phone: mp351-4585RV-Vxkhd [facility] [address] DO Work Phone: 1(689) 876-625507-20-2022 11:04-0400Body surface area Derived from formula1.66 b7BnghlSuhas Garrett Work Phone: mp173-3931XE-Ssddf [facility] 250 DO Work Phone: 1(220) 859-795507-20-2022 11:04-0400Body .86 kgSuhas Garrett Work Phone: mp943-9780FS-Blazg [facility] [address] DO Work Phone: 1(511) 464-686707-20-2022 11:04-0400Diastolic blood uyteqejm79 mm[Hg] Suhas Garrett Work Phone: mp802-7814OO-Prqos [facility] [address] DO Work Phone: 1(589) 442-645207-20-2022 11:04-0400Heart rate56 /minSuhas Garrett Work Phone: mp863-4924HY-Knavs [facility] [address] DO Work Phone: 1(881) 681-689507-20-2022 11:04-0400Systolic blood mm[Hg] Suhas Garrett Work Phone: mp401-5060XT-Xnppi [facility] [address] DO Work Phone: 1(122) 533-145107-20-2022 11:00-0400Diastolic blood eogewdqv60 mm[Hg] Suhas Garrett Work Phone: 1(626) 113-4628580-6369HL-Oowym [facility] [address] DO Work Phone: 1(600) 538-998607-20-2022 11:00-0400Systolic blood lqrlqcub086 mm[Hg] Suhas Garrett Work Phone: 1(245) 515-4703404-1821IK-Dvuxp [facility] [address] DO Work Phone: 1(988) 424-341707-07-2022 11:39-0400Diastolic blood njotrnku30 mm[Hg] Suhas Garrett Work Phone: 1(916)[address] [place] [address] Work Phone: 1(772) 614-976007-07-2022 11:39-0400Systolic blood jzkbbygq259 mm[Hg] Suhas Garrett Work Phone: 1(120)[address] [place] [address] Work Phone: 1(315) 321-829407-07-2022 11:22-0400Diastolic blood ngxpmeii60 mm[Hg] Suhas Garrett Work Phone: 1(398)[address] [place] [address] Work Phone: 1(903) 648-437007-07-2022 11:22-0400Systolic blood tvvilhhi244 mm[Hg] Suhas Garrett Work Phone: 1(507)[address] [place] [address] Work Phone: 1(161) 988-262107-07-2022 11:17-0400Body pzjohd873.48 cmSuhas Garrett Work Phone: 1(727)[address] [place] [address] Work Phone: [phone]93 11:17-0400Body mass index (BMI) [Ratio] 26.52 kg/s6MuwndSuhas Garrett Work Phone: 1(952)[facility]79[facility] Work Phone: [phone]63 11:17-0400Body surface area Derived from formula1.67 e4MdlbdSuhas Garrett Work Phone: 1(440)[address] [place] [address] Work Phone: 1(961) [phone] 11:17-0400Body zufnnx17.77 kgSuhas Garrett Work Phone: 1(419)[address] [place] [address] Work Phone: 1(791) 536-196707-07-2022 11:17-0400Diastolic blood gwaboduu11 mm[Hg] Suhas Garrett Work Phone: [facility] Work Phone: 1(870) 216-159207-07-2022 11:17-0400Heart rate60 /minSuhas Garrett Work Phone: [facility] Work Phone: 1(818) [phone] 11:17-0400Systolic blood zgktkywb698 mm[Hg] Suhas Garrett Work Phone: [facility] Work Phone: 1(798) [phone] 13:30-0400Body vyvvan541.48 cmSuhas Garrett Other [employer] Other 04-25-2022 13:30-0400Body mass index (BMI) [Ratio] 26.34 kg/s4KqthhSuhas Garrett Other [employer] Other 04-25-2022 13:30-0400Body ararlj51.32 kgSuhas Garrett Other [employer] Other 04-25-2022 13:30-0400Diastolic blood uxiquqqw09 mm[Hg] Suhas Garrett Other [employer] Other 04-25-2022 13:30-0400Respiratory rate18 /minSuhas Garrett Other [employer] Other 04-25-2022 13:30-4020DvC5% (BldA) [Mass fraction]99 % Suhas Garrett Other [employer] Other 04-25-2022 13:30-0400Systolic blood sogtsqul154 mm[Hg] Suhas Garrett Other [employer] Other 02-24-2022 13:30-0500Body iqqjlf742.48 cmCarterraquel Garrett Other [employer] Other 02-24-2022 13:30-0500Body mass index (BMI) [Ratio] 26.52 kg/g4Ufjrm Kunadan Other [employer] Other 02-24-2022 13:30-0500Body mlwuqh86.77 kgCarterraquel Garrett Other [employer] Other 02-24-2022 13:30-0500Diastolic blood mancyuvg11 mm[Hg] Suhas Garrett Other [employer] Other 02-24-2022 13:30-0500Respiratory rate16 /minSuhas Garrett Other [employer] Other 02-24-2022 13:30-8842SzI7% (BldA) [Mass fraction]99 % Suhas Garrett Other [employer] Other 02-24-2022 13:30-0500Systolic blood cpahmylk079 mm[Hg] Suhas Ugo Other [employer] Other 11-18-2021 13:30-0500Body .48 cmSuhas Garrett Other [employer] Other 11-18-2021 13:30-0500Body mass index (BMI) [Ratio] 25.97 kg/y0WaolbSuhas Garrett Other [employer] Other 11-18-2021 13:30-0500Body zltode69.41 kgSuhas Garrett Other [employer] Other 11-18-2021 13:30-0500Diastolic blood xbuakmgm82 mm[Hg] Suhas Garrett Other [employer] Other 11-18-2021 13:30-0500Respiratory rate17 /minSuhas Garrett Other [employer] Other 11-18-2021 13:30-6505CqV5% (BldA) [Mass fraction]98 % Suhas Garrett Other [employer] Other 11-18-2021 13:30-0500Systolic blood fsveelna598 mm[Hg] Suhas Garrett Other [employer] Other Encounters Encounter DateEncounter TypeCare ProviderFacilityStart: 02-14-2025 End: 49-61-8772hqrvboaalwNgyehsrJorge Weston MDFacility:[facility] [place] Start: 01-14-2025 End: 39-70-5577Kczgtt outpatient visit 25 minutesShy Wolf MD Work Phone: [facility]Comment on above:Nonrheumatic aortic valve stenosis (Primary Dx); 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; Hyperlipidemia, unspecified hyperlipidemia type; PMR (polymyalgia rheumatica) (Multi); Hypothyroidism, unspecified type; BMI 27.0-27.9,adult; Never smoked any substance; OverweightStart: 01-14-2025 End: 07-03-8445eeedibigphFKZZUQ M IBRHouston [facility] AmbulatoryStart: 12-21-2024 End: 81-54-3127Dabyefkiaf hospital visit by Julia Baker Echo[facility] 2[facility] CenterComment on above:Aortic valve stenosis, etiology of cardiac valve disease unspecifiedStart: 12-21-2024 End: 56-68-4412pddslbzkkhURGFFXMercy Health Defiance Hospitaltart: 12-07-2024 End: 10-78-9181Jysbdz outpatient visit 15 Silkem[address] [place] BURGER Work Phone: [facility] Access HospitalComment on above: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 (Primary Dx); BMI 26.0-26.9,adultStart: 12-07-2024 End: 33-57-7868cdhwadwbawINFRRSampson [facility] Medical Center AmbulatoryStart: 10-25-2024 End: 03-34-1305cweaebjvkbPbxpehh Vytautas Giedraitis MDFacility:[facility] [place] Start: 09-13-2024 End: 73-08-9633vkfgrkciwiKcaasfw Vytautas Giedraitis MDFacility:[facility] [place] Start: 07-28-2024 End: 46-72-2671kqwzupfmtyWrvcv UgoFacility:[facility] Start: 05-25-2024 End: 36-83-6601agvjguxikqAuqnr KunsFaloring hospital:[facility] Start: 04-16-2024 End: 69-61-2013Abpjsz outpatient visit 25 minutesShy Wolf MD Work Phone: [facility] Access HospitalComment on above:Aortic valve stenosis, etiology of cardiac valve disease unspecified (Primary Dx); Essential hypertension; Hyperlipidemia, unspecified hyperlipidemia type; Never smoked any substance; BMI 26.0-26.9,adult; Hypothyroidism, unspecified typeStart: 04-16-2024 End: 32-64-0939eqblqlwmdmACXILD [facility] AmbulatoryStart: 02-11-2024 End: 79-19-3979Ljtqghppxh hospital visit by Julia Baker Echo[facility] on above:Nonrheumatic aortic valve stenosis; Aortic valve stenosis, etiology of cardiac valve disease unspecifiedStart: 02-11-2024 End: 96-27-5325clegqnouwwEEBUWT [facility]: 10-14-2023 End: 66-19-7327fdzujsyaeuIzcai KunsFacility:[facility] Start: 09-03-2023 End: 92-10-4367kfrdeyajjkCbebq GaelsFacility:[facility] Start: 07-18-2023 End: 77-79-8330maxevjehsmHgnhl Gaels Other [place] Other Start: 19-83-2894Uzoxuzpqb encounterBryraquel MayosFPG [facility] Cast[place]Start: 07-15-2023 End: 79-96-8132vwtgvwqbiiElcgy Kuns Other [place] Other Start: 93-23-2132Hbqcadcqa encounterBryraquel MayosFP[facility] [place]aliaStart: 07-10-2023 End: 45-55-0636ywmrtyljvlBzuyq Kuns Other no[place] Other Start: 11-44-0283Tsdzzrweh encounterBryraquel MayosFPG Family Medicine CastaliaStart: 07-07-2023 End: 08-27-0952dlspmnvnisBiiwh Kuns Other [employer] Other Start: 62-51-8480Pqcohcnev encounterBryraquel MayosFPG Family [facility] CastaliaStart: 07-04-2023 End: 99-29-9815zsdleffticZjdfq Kuns Other [employer] Other Start: 73-00-4175Raezoj outpatient visit 15 minutes Suhas MayosFPG [facility] CastaliaStart: 06-19-2023 End: 47-32-6413keyipayxqxClcrq Kuns Other [employer] Other Start: 98-52-8434Gwgqmaaqr encounterSuhas MayoCory Family Medicine CastaliaStart: 06-19-2023 End: 19-97-0801Vdqejf outpatient visit 25 minutesShy Wolf MD Work Phone: [facility] ServicesComment on above:Aortic valve stenosis, etiology of cardiac valve disease unspecified; Essential hypertension; Hyperlipidemia, unspecified hyperlipidemia type; Never smoked any substanceStart: 05-30-2023 End: 11-84-4267blljfocvhzUxvym Kuns Other [employer] Other Start: 65-83-1667Cqpwvf outpatient visit 25 minutes Suhas MayoadanLEYDI Family Medicine CastaliaStart: 05-28-2023 End: 35-61-0398kxdddtcyeoHlfqp Kuns Other [employer] Other Start: 89-63-4835Taaitqolj encounterSuhas MayoDereckShravan Family Medicine CastaliaStart: 04-23-2023 End: 92-92-1828ptvdcbrewaIlpmc Kuns Other [employer] Other Start: 79-54-4517Ihfeckkbx encounterSuhas MayoDereckShravan Family Medicine CastaliaStart: 04-18-2023 End: 11-79-0444lwsdimulrxZxaxw Kuns Other [employer] Other Start: 69-61-8526Qkrogsmvn encounterSuhas MayoadanFPG Family Medicine CastaliaStart: 53-06-1976Hjfiw UpdateSuhas Garrett Work Phone: [phone][facility] 250 DO Work Phone: Start: 02-28-2023 End: 06-38-5618tjyolicqspKaqid Kuns Other [employer] Other Start: 58-97-2838Ldnxup outpatient visit 15 minutes Suhas GaelCory Family Medicine CastaliaStart: 03-06-9118hivxvekkkfGc. Suhas GarrettShriners Hospital For Childrenity:[id number]: 01-27-2023 End: 71-20-2824xxygcoxcohQhnfz Kuns Other [employer] Other Start: 06-56-7901Rremrqozb encounterBryraquel Sommers [facility] CastaliaStart: 34-44-7531Hnwnid outpatient visit 25 minutesSuhas Garrett Work Phone: [phone]-YmrdnK[place] [address] [place] Work Phone: Start: 49-79-5816oxekqhysyyUm. Shy Agosto [facility] Facility:[id number]: 12-06-2022 End: 09-58-4278ncbfotaxocOckla Kuns Other [employer] Other Start: 76-87-2971Lgynla outpatient visit 15 minutes Suhas GaelCory Family Medicine CastaliaStart: 09-20-2022 End: 90-48-0735fmahlxgmylAnfvs Kuns Other [employer] Other Start: 48-75-9696Aahgib outpatient visit 15 minutes Suhas GaelCory Family Medicine CastaliaStart: 08-14-2022 End: 11-75-2516xvgfsrheaxOihky Kuns Other [employer] Other Start: 24-56-7855Oicqlbysp encounterBryraquel GaelCory Family Medicine CastaliaStart: 07-22-2022 End: 65-65-8495hqfgylbjfgYidxj Kuns Other [employer] Other Start: 92-52-8875Dwfcca outpatient visit 15 minutes Suhas Sommers [facility] CastaliaStart: 04-17-2022 End: 98-41-3783txabewjpyoVdptd Kuns Other [employer] Other Start: 05-21-9454Wmuwbg outpatient visit 15 minutes Suhas ManciniG Family Medicine CastaliaStart: 04-10-2022 End: 94-29-4398gavzcywrxgPqehn Kuns Other [employer] Other Start: 16-37-4662Rvcuhsqko encounterBryraquel GarrettFPG Family Medicine CastaliaStart: 04-03-2022 End: 83-12-5008vsngqwekvlDgybd Kuns Other [employer] Other Start: 41-00-1648Wqakgbsuu encounterBryraquel GarrettFPG Family [facility] CastaliaStart: 04-02-2022 End: 01-22-5985mdzqydbjshMgfby Kuns Other [facility] [employer] Other Start: 26-63-8055Qhkrfrbly encounterBryraquel GarrettFPG Family [facility] CastaliaStart: 02-26-2022 End: 74-62-1751tjznzkurogRguzv Kuns Other [facility] [employer] Other Start: 57-40-7761Iupkfgpdd encounterBryraquel GarrettFPG Family [facility] CastaliaStart: 02-25-2022 End: 58-21-8954ptgrijamzrQiwaz Kuns Other [employer] Other Start: 71-02-6056Geucaejer encounterBryraquel MayosFPG Family Medicine CastaliaStart: 02-22-2022 End: 66-56-2036uuwgixlltuBcpxd Kuns Other [facility] CenterMeet You Other Start: 43-15-0155Hofdta outpatient visit 25 minutes Suhas MayoadanLEYDI Family Medicine CastaliaStart: 36-62-2224Huqeebu encounter procedureSuhas Garrett Work Phone: [phone]-BavuvRegions Hospital [address] [place] Work Phone: Start: 02-20-2022 End: 53-44-2504cwkswtjhnkOJMFJYT M MANONFacility:A3Ctzyg: 02-14-2022 End: 75-42-1943vexktdgfnqMcnab Kuns Other [facility]Meet [facility] Other Start: 26-13-6889Tgiwhi outpatient visit 25 minutes Suhas Sommers [facility] [place]aliaStart: 01-11-2022 End: 73-03-8967xbpogmkopjFipkf Kuns Other [facility] CenterMeet You Other Start: 93-93-9785Uxksxun evaluation of patient and reportBryraquel MayoadanLEYDI Family Medicine CastaliaStart: 77-29-4628Eahzzdpso encounter Suhas GaeladanLEYDI Family Medicine CastaliaStart: 99-29-0536Oixmrr outpatient visit 10 minutesSuhas Garrett Work Phone: [phone]-AmdvsRegions Hospital 250 DO Work Phone: Start: 19-63-2579kghmovyzdmUt. Bryan Patrick Kuns Facility:[id number]: 12-20-2021 End: 78-93-3045oesnkgztgqJjkjs Kuns Other noMeet You Other Start: 83-09-1660Tilexaibt encounterSuhas MayoadanLEYDI Family Medicine CastaliaStart: 76-50-2547Amrmew outpatient visit 25 minutesSuhas Garrett Work Phone: [facility] Work Phone: Start: 11-02-2021 End: 12-44-4678reezndijuzXjpoa Kuns Other [employer] Other Start: 69-62-1589Yemfhbuyq encounterBryraquel GarrettFPG [facility] CastaliaStart: 10-01-2021 End: 94-48-7821xkzhsvmqjtDriju Kuns Other [employer] Other Start: 81-13-0058Cmkrri outpatient visit 15 minutes Suhas GarrettFPG [facility] CastaliaStart: 09-10-2021 End: 16-58-1014rjedycpmuvWrxpw Kuns Other [employer] Other start: 20-37-7185Aplbavegk encounterBryraquel GarrettFPG [facility] CastaliaStart: 08-20-2021 End: 03-98-1295bslexsnbriVqili Kuns Other [employer] Other Start: 85-89-5968Hjfurieor encounterBryraquel GarrettFPG Family [facility] CastaliaStart: 08-02-2021 End: 35-36-2204xzsgtvdwbdBvhor Kuns Other [employer] Other Start: 67-53-3694Qvlbjs outpatient visit 15 minutes Suhas GarrettFPG [facility] CastaliaStart: 07-25-2021 End: 09-89-5470qlxbocfttdJychy Kuns Other [employer] Other Start: 87-26-9062Czpvqgbrt encounterBryraquel GarrettFPG [facility] CastaliaStart: 05-08-2021 End: 32-93-9208nuttpaledaLelci Kuns Other no[employer] Other start: 71-71-9095Tcehesudl encounterCarterraquel Matthieu [facility] CastaliaStart: 04-26-2021 End: 33-47-8055hlsjvfstnvHdlpg Kuns Other [facility] [employer] Other Start: 78-76-4566Zvjtnm outpatient visit 25 minutes Suhas Sommers [facility] [place] Procedures DateProcedureProcedure Detail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Start: 05-89-2639Vbpn [facility] r-t 2d w/wom-mode compl spec&colr Clayton Wolf MD Work Phone: Start: 74-30-1390NwaodzxofdagzbucCzcou P Kuns Work Phone: Start: 18-12-7259TjckpnshiueffqanXvqtm P Kuns Work Phone: AppendectomyBryan P Kuns Work Phone: CholecystectomyBryan P Kuns Work Phone: Operation on ovaryBryan P Kuns Work Phone: ThyroidectomyBryan P Kuns Work Phone: Total colonoscopyBryan P Kuns Work Phone: Plan of Treatment DateCare ActivityDetailAuthorStart: 76-29-9699JGnI/Tdap/Td Vaccines (2 - Td or Tdap)DTaP/Tdap/Td Vaccines (2 - Td or Tdap)[facility] Start: 01-26-2026 End: 29-53-8587Jtfmfcy encounter khsmjwari09/20/2026 11:00 AM EDT Office Visit [facility] [address] [facility] [address] [place] [address] Shy Wolf MD [address] [facility] [address], [address] [place] [address] [facility] ServicesStart: 60-04-1598CkqwjcwuwntopogxYzfzphriviunnf [facility]: 12-20-2025 End: 01-59-5433Fmzhksy encounter qmlxuqyka96/14/2026 10:45 AM EDT Appointment [place] [address] [facility] [address] [place] [phone] [facility]: 12-14-2025 End: 26-83-2070CZ Heart TransthoracicTransthoracic Echo Complete Echocardiography Routine Nonrheumatic aortic valve stenosis Expected: 12/14/2025 (Approximate), Expires: 01/14/2027[facility] Service Area Work Phone: Comment on above:Expected: 12/14/2025 (Approximate), Expires: 01/14/2027Start: 03-01-2026Medicare Annual Wellness VisitMedicare Annual Wellness Visit (AWV)[facility]: 02-10-2025 EchocardiographyEchocardiogramUnTwin [facility]: 02-07-2025 Influenza vaccinationInfluenza Vaccine (#1)[facility] Start: 01-14-2025 End: 58-84-5617GQ Heart TransthoracicTransthoracic Echo Complete Echocardiography Routine Aortic valve stenosis, etiology of cardiac valve disease unspecified Expected: 01/14/2025 (Approximate), Expires: 04/16/2026[facility] Service Area Work Phone: Comment on above:Expected: 01/14/2025 (Approximate), Expires: 04/16/2026Start: 01-14-2025 End: 81-87-3090Btlpfut encounter gwpidijuv15/08/2025 11:00 AM EDT Office Visit [address] [place] [phone] Shy Wolf MD [address] [facility] [address], [address] [place] [address] [facility]: 12-21-2024 End: 54-29-4536Rdyiwtz encounter gztuxzaaz15/15/2025 12:30 PM EDT Appointment [place] [address] [place] [address] [place] [phone] [facility]: 62-37-8798XYAVG-19 Vaccine ( season)COVID-19 Vaccine ( season)[facility]: 03-16-2024 End: 39-89-5910Kwhqhsr encounter cjkrbdubv31/08/2024 11:20 AM EDT Office Visit [address] [phone] Shy Wolf MD [address] [facility] [address], [address] [address] [facility]: 66-12-3870Bwsuuuvtu for osteoporosisBone Density [facility]: 02-11-2024 End: 89-00-6807Somkwfd encounter eafhffbew88/04/2024 12:30 PM EDT Appointment [address] [phone] [facility]: 12-28-6312FTLUW-19 Vaccine ( season)COVID-19 Vaccine ( season)[facility]: 02-08-2024 Influenza vaccinationInfluenza Vaccine (#1)[facility] Start: 02-08-2024 End: 91-46-2679VZ Heart TransthoracicTransthoracic Echo (TTE) Complete Echocardiography Routine Aortic valve stenosis, etiology of cardiac valve disease unspecified Expected: 02/08/2024 (Approximate), Expires: 06/19/2025[facility] Service Area Work Phone: Comment on above:Expected: 02/08/2024 (Approximate), Expires: 06/19/2025Start: 52-57-9689DCG, Provider: Shy Wolf, Status: Pen, Time: 11:00 AMFUV, Provider: Shy Wolf, Status: Pen, Time: 11:00 AMK[address] [address] DO Work Phone: Start: 23-96-7696MIABR-19 Vaccine (5 - Moderna series) COVID-19 Vaccine (5 - Moderna series)[facility]: 95-40-4508FBKE, Provider: SAMUEL HHVI ULTRASOUND 01,[id number], Status: Pen, Time: 10:45 AMECHO, Provider: SAMUEL YII ULTRASOUND 01,[id number], Status: Pen, Time: 10:45 [facility] [address] DO Work Phone: Start: 72-11-0137YGF, Provider: Shy Wolf, Status: Pen, Time: 11:20 AMFUV, Provider: Shy Wolf, Status: Pen, Time: 11:20 [facility] Work Phone: Start: 64-41-6002BSXYPAN, Provider: SAMUEL YII ULTRASOUND 01,[id number], Status: Pen, Time: 12:30 PMCAROTID, Provider: SAMUEL HHVI ULTRASOUND 01,[id number], Status: Pen, Time: 12:30 PMC[facility] Work Phone: start: 27-22-0394MJNZ, Provider: SAMUEL HHVI ULTRASOUND 01,[id number], Status: Pen, Time: 10:45 AMECHO, Provider: SAMUEL HHVI ULTRASOUND 01,[id number], Status: Pen, Time: 10:45 [facility] Work Phone: start: 07-73-4238HRFLSZY, Provider: SAMUEL HHVI ULTRASOUND 01,[id number], Status: Pen, Time: 2:30 PMCAROTID, Provider: SAMUEL HHVI ULTRASOUND 01,[id number], Status: Pen, Time: 2:30 PMC[facility] Work Phone: start: 80-51-4942ONRY, Provider: SAMUEL HHVI ULTRASOUND 01,[id number], Status: Pen, Time: 1:30 PMECHO, Provider: SAMUEL HHVI ULTRASOUND 01,[id number], Status: Pen, Time: 1:30 PMC[facility] Work Phone: Start: 75-94-3803SZKHJVGU, Provider: MAGDA DANIEL FINANCIAL MANAGER 1,[id number], Status: Pen, Time: 11:00 AMNURSEVST, Provider: MAGDA DANIEL FINANCIAL MANAGER 1,[id number], Status: Pen, Time: 11:00 AMC[facility] Work Phone: Start: 02-62-8232Xztoiouim B Vaccines (1 of 3 - Risk 3-dose series)Hepatitis B Vaccines (1 of 3 - Risk 3-dose series)[facility]: 41-71-6862Uicexmgtw A Vaccines (1 of 2 - Risk 2- dose series)Hepatitis A Vaccines (1 of 2 - Risk 2-dose series)[facility]: 34-25-9368Jbmmmkijhh measurementCreatinine Level [facility]: 65-78-2610Wauvn panelLipid Panel [facility]: 03-04-1937Medicare Annual Wellness Visit Medicare Annual Wellness Visit (AWV)[facility]: 57-58-4314Fpqivllnz measurementPotEastern [facility] Medical [facility] Start: 23-69-5572Mtdzxhl stimulating hormone measurementTSFairfax Community Hospital – FairfaxECG 12 LeadECG 12 Lead ECG Routine 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 Ordered: 12/08/2024[facility] Area Work Phone: Comment on above:Ordered: 12/08/2024 End: 43-32-4274LL [facility] TransthoracicSt[facility] Work Phone: Comment on above:Once for 1 Occurrences starting 02/11/2024 until 02/11/2024 Immunizations Immunization DateImmunizationNotesCare NkwbjekvXticdygz27-68-7537Crgvgkgywelf conjugate vaccine, 20-valent (PREVNAR 20)Shy Wolf MD Work Phone: [facility] Work Phone: [phone] COVID-19 vaccine, 12 years and older (50mcg/0.5mL)(Spikevax)Shy Wolf MD Work Phone: [facility] Work Phone: [phone] trivalent influenza vaccine, adjuvanted, preservative freeShy Wolf MD Work Phone: [facility] Work Phone: [phone] virus vaccine, unspecified formulationReuben Burns RENEWABLE ENERGY CONSULTANT-ANGIOGRAPHY TECHNOLOGIST Work Phone: [facility] Work Phone: [phone] SYNCYTIAL VIRUS (RSV), ELIGIBLE PTS, 0.5 ML (ABRYSVO)Shy Wolf MD Work Phone: [facility] Work Phone: [phone]qeuef, Seasonal, Quadrivalent, AdjuvantedShy Wolf MD Work Phone: [facility] Work Phone: [phone] COVID-19 vaccine, 12 years and older (50mcg/0.5mL)(Spikevax)Shy Wolf MD Work Phone: [facility] Work Phone: [phone] virus vaccine, unspecified formulationEly 2[facility] Work Phone: [phone] COVID-19 Bivalent 50 MCG/0.5ML Intramuscular SuspensionSuhas Garrett Work Phone: [facility] [address] DO Work Phone: [phone] Quadrivalent 0.5 ML Intramuscular Prefilled SyringeBryraquel P Ugo Work Phone: [phone]-QtylwRegions Hospital 250 DO Work Phone: [phone], seasonal, injectableBryan Kuns Other [facility] [employer] Other [id number] COVID-19 Vaccine 100 MCG/0.5ML Intramuscular SuspensionBryan P Kuns Work Phone: [facility] Work Phone: [phone] COVID-19 Vaccine 100 MCG/0.5ML Intramuscular SuspensionBryan P Kuns Work Phone: [facility] Work Phone: [phone], seasonal, injectableBryan Kuns Other [employer] Other [id number] COVID-19 Vaccine 100 MCG/0.5ML Intramuscular SuspensionBryan P Kuns Work Phone: [facility] Work Phone: [phone] COVID-19 Vaccine 100 MCG/0.5ML Intramuscular SuspensionBryan P Kuns Work Phone: [facility] Work Phone: [phone] polysaccharide vaccine, 23 valentBryan Gaels Other [facility] [employer] Other [id number] trivalent influenza vaccine, adjuvanted, preservative freeBryan P Kuns Work Phone: [facility] Work Phone: [phone]kaiq, seasonal, injectableBryan Kuns Other [employer] Other [id number] virus vaccine, unspecified formulationBryan P Kuns Work Phone: [facility] Work Phone: [phone]ouwge, seasonal, injectableBryan Kuns Other [employer] Other [id number] vaccine recombinantBryan Kuns Other [employer] Other [id number], high dose seasonal, preservative-freeBryan P Kuns Work Phone: [facility] Work Phone: [phone], seasonal, injectableBryan Kuns Other [employer] Other [id number] vaccine recombinantBryan Kuns Other [employer] Other [id number] toxoid, reduced diphtheria toxoid, and acellular pertussis vaccine, adsorbedBryan Kuns Other [employer] Other 10934810-75-3367Gptirgsi trivalent influenza vaccine, adjuvanted, preservative freeShy Wolf MD Work Phone: [facility] Work Phone: [phone]imkxn virus vaccine, unspecified formulationBryan P Kuns Work Phone: [facility] Work Phone: [phone]gr virus vaccine, unspecified formulationBryan P Kuns Work Phone: [facility] Work Phone: [phone] trivalent influenza vaccine, adjuvanted, preservative freeBryan P Kuns Work Phone: [facility] Work Phone: [phone]ymqmvolqo conjugate vaccine, 13 valent Shy Wolf MD Work Phone: [facility] Work Phone: [phone]mjgnndkpg conjugate vaccine, 13 valent Suhas Gaels Other [facility] [employer] Other [id number] trivalent influenza vaccine, adjuvanted, preservative freeCarteran P Gaels Work Phone: [facility] Work Phone: [phone]cexmhtof virus vaccine, unspecified formulationBryan P Kuns Work Phone: [facility] Work Phone: [phone]snkhmsxmvtr conjugate vaccine, 13 valent Suhas Dalton Garrett Work Phone: [facility] Work Phone: [phone], injectable, quadrivalent, contains preservativeBryan P Kuns Work Phone: [facility] Work Phone: [phone]dwzkrqwx virus vaccine, unspecified formulationBryan P Kuns Work Phone: [facility] Work Phone: [phone]bveea, seasonal, injectable, preservative freeCarteran P Kuns Work Phone: [facility] Work Phone: [phone]ajlrcptl virus vaccine, whole virusCarteran P Gaels Work Phone: [facility] Work Phone: [phone]updovgen, seasonal, injectableBryan P Kuns Work Phone: [facility] Work Phone: [phone]ojsvhdeu virus vaccine, unspecified formulationCarteran P Kuns Work Phone: [facility] Work Phone: [phone]ryoqksjt, injectable, quadrivalent, contains preservativeBryan Kuns Other [employer] Other 01992767-40-7693oyaugyzmy virus vaccine, unspecified formulationBryan P Kuns Work Phone: [facility] Work Phone: [phone] [phone]iwsadk virus vaccine, unspecified formulationBryan P Kuns Work Phone: [facility] Work Phone: [phone]fwfqsa virus vaccine, unspecified formulationBryan P Kuns Work Phone: [facility] Work Phone: [phone] aisihtsdm-I8J0-62, preservative-free, injectableBryan P Kuns Work Phone: [facility] Work Phone: [phone] virus vaccineBryan P Kuns Work Phone: [facility] Work Phone: [phone]ftsquuhu polysaccharide vaccine, 23 valentBryan P Kuns Work Phone: [facility] Work Phone: Payers DatePayer CategoryPayerPolicy [id number]-[id number] Care (Private)[facility] .[id number] Private Health [id number]5-1568 [id number].3.841467.31491-51-7651Xmpqhuc62-60-7460 [id number] 2..5.736882.17403456-04-3162Qasmdxz Health Insurance [id number] 2..2.90241[id number] 2..1.164212.3.57[id number] 2..1.600242.3.57[id number] 2..1.117662.3.57[id number] 2..1.483526.3.57[id number] 2..1.157012.3.57[id number] 2.0.1.728061.3.57[id number] 2.0.1.973787.3.57[id number] 2.0.1.572172.3.57[id number] 2.0.1.952251.3.57[id number] 2.16.840.1.789703.3.57[id number] 2.16.840.1.627546.3.57[id number] 2.16.840.1.3[id number] 2.16.840.1.902859.3.579.2.531 [id number] 2.16.840.1.1[id number] 2.16.840.1.8[id number] 2.16.840.1.416016.3.579.2.531 Social History DateTypeDetailFacilityUnknown if ever smokedMilitary Health System [employer] Other Start: 06-19-2023 End: 21-51-9626Ofs Assigned At BirthN[facility]cy [facility] [employer] Other Start: 06-19-2023 End: 47-68-6977Yqpcetkj useCaffeine useCleveland Clinic [facility] Work Phone: Start: 65-53-3500Ydnemdy smoking status NHISNever smoked tobaccoUnSalem Regional Medical Center Work Phone: Start: 32-56-0662Kyvorbj use and exposureSmokeless tobacco non-userUnSalem Regional Medical Center Work Phone: Start: 68-38-3137Yrk Assigned At BirthNot on file [facility] Work Phone: Start: 06-09-2023 End: 48-86-7895Zvzzwyqc to SARS-CoV-2 (event)Not sureUnSalem Regional Medical CenterStart: 04-16-2024 End: 54-36-2680Aqeffxqha beverage intakeCurrent drinker of alcohol (finding) [facility] Work Phone: Start: 52-73-7289TwjWdblxeUkeznhjwzmEast [facility] Clinical Notes 02-15-2015 to 01-14-2025 Note Date & NhxtGhqvTfoblfvh60-79-0905 History of Present illness Narrative* Shy Wolf [...] exam, discussion and plan. documented in this encounterProMedica [facility] Work Phone: 1([phone]) 862-148908-08-2025 Instructions* Patient Instructions* Richelle Frey LPN - [...] through Care Everywhere. * Heart Healthy Diet (Libyan) documented in this encounterProMedica Fostoria Community Hospital Work Phone: [phone] 107-870207-01-2025 History of Present illness Narrative* Reuben Burns [...] in patient record. Reuben Burns MSN, JENNYFER, PMHNP-[facility] [place], [place] Please excuse any errors in grammar or translation related to this dictation. Voice recognition software was utilized to prepare this document. documented in this [facility] Work Phone: [phone] 389-696607-01-2025 Instructions* Patient Instructions* JENNYFER Garsia - 12/07/2024 [...] Dr. Wolf as scheduled documented in this encounterUnSalem Regional Medical Center Work Phone: 1([phone]) 201-993307-01-2025 Miscellaneous Notes* Addendum Note - JENNYFER Garsia - 12/07/2024 3:00 PM EDTAddended by: REUBEN BURNS on: 12/08/2024 02:08 PM Modules accepted: Orders documented in this encounterUnSalem Regional Medical Center Work Phone: [phone] [id number] Note* Addendum Note - ARGELIA Garsia CNP - 12/07/2024 3:00 PM EDTAddended by: REUBEN BURNS on: 12/08/2024 02:08 PM Modules accepted: Orders [facility] Work Phone: 1(608) 116-175311-08-2024 History of Present illness Narrative* Shy Wolf [...] exam, discussion and plan. documented in this [facility] Work Phone: 1(583) 566-317611-08-2024 Instructions* Patient Instructions* Sherin Mendez LPN - [...] 9 month follow up documented in this [facility] Work Phone: [phone]) 714-319702-09-2024 Evaluation note* Encounter Date Diagnosis Assessment Notes Treatment Notes Treatment Clinical Notes Jul, PMR (polymyalgia rheumatica) (IC D-10 - M35.3) [facility] Other 02-06-2024 Evaluation note* Encounter Date Diagnosis Assessment Notes Treatment Notes Treatment Clinical Notes Jul, PMR (polymyalgia rheumatica) (IC D-10 - M35.3) [facility] Other 02-01-2024 Evaluation note* Encounter Date Diagnosis Assessment Notes Treatment Notes Treatment Clinical Notes Jul, Hypothyroidism (ICD-10 - E03.9) [facility] Other 01-29-2024 Evaluation note* Encounter Date Diagnosis Assessment Notes Treatment Notes Treatment Clinical Notes Jun, Hypothyroidism (ICD-10 - E03.9) Jun,Hyperthyroidism (ICD-10 - E05.90) [facility] Other 01-26-2024 Evaluation note* Encounter Date Diagnosis [...] requires sooner she is welcome to call. [facility] Other 01-11-2024 Evaluation note* Encounter Date Diagnosis Assessment Notes Treatment Notes Treatment Clinical Notes Jun, PMR (polymyalgia rheumatica) ( D-10 - M35.3) [facility] Other 01-11-2024 History of Present illness Narrative* [...] is being tapered gradually Shy Wolf MD, [facility] Review of Systems All other systems [...] Shy Wolf MD. [facility] Work Phone: 1(141) 555-667301-11-2024 Instructions* Patient Instructions* Yevgeniy Cortez MA - [...] of your visit. [facility] Work Phone: 1(912) 470-617512-22-2023 Evaluation note* Encounter Date Diagnosis Assessment Notes [...] recommend the patient get the RSV vaccine. [facility] Other 12-20-2023 Evaluation note* Encounter Date Diagnosis Assessment Notes Treatment Notes Treatment Clinical Notes May, Hypertension (ICD-10 - I10) May,Hypothyroidism (ICD-10 - E03.9) [facility] Other 11-10-2023 Evaluation note* Encounter Date Diagnosis Assessment Notes Treatment Notes Treatment Clinical Notes Apr, PMR (polymyalgia rheumatica) (IC D-10 - M35.3) [facility] Other 09-22-2023 Evaluation note* Encounter Date Diagnosis Assessment Notes Treatment Notes Treatment Clinical Notes Feb, PMR (polymyalgia rheumatica) (IC D-10 - M35.3) She was encouraged to take 2.5mg daily. Patient is agreeable. Feb,Hypertension (ICD-10 - I10) Blood pressure is satisfactory, she is to follow with cardiology as scheduled. [facility] Other 08-21-2023 Evaluation note* Encounter Date Diagnosis Assessment Notes Treatment Notes Treatment Clinical Notes Jan, Hypertension (ICD-10 - I10) [facility] Other 06-30-2023 Evaluation note* Encounter Date Diagnosis [...] very [facility] She will see Dr. Wolf in three weeks therefore was advised to make sure she discusses the swelling with him and see what he would like to do. Patient is agreeable. [facility] Other 04-14-2023 Evaluation note* Encounter Date Diagnosis [...] tablets daily. We will continue to monitor. [facility] Other 03-08-2023 Evaluation note* Encounter Date Diagnosis Assessment Notes Treatment Notes Treatment Clinical Notes Aug, PMR (polymyalgia rheumatica) (IC D-10 - M35.3) [facility] Other 02-13-2023 Evaluation note* Encounter Date Diagnosis [...] states she has an upcoming appointment with store management trainee and she will discuss making medication changes at that time. [facility] Other 11-09-2022 Evaluation note* Encounter Date Diagnosis [...] she can cut Apr,Hyperlipidemia (ICD-10 - E78.5) [facility] Other 11-02-2022 Evaluation note* Encounter Date Diagnosis Assessment Notes Treatment Notes Treatment Clinical Notes Apr, PMR (polymyalgia rheumatica) (IC D-10 - M35.3) [facility] Other 10-26-2022 Evaluation note* Encounter Date Diagnosis Assessment Notes Treatment Notes Treatment Clinical Notes Mar, Lumbar back pain (ICD-10 - M54.5 0) [facility] Other 09-20-2022 Evaluation note* Encounter Date Diagnosis Assessment Notes Treatment Notes Treatment Clinical Notes Feb, Elevated liver function tests (I CD-10 - R79.89) [facility] Other 09-16-2022 Evaluation note* Encounter Date Diagnosis Assessment Notes Treatment Notes Treatment Clinical Notes Feb, Acute pain of left shoulder (ICD -10 - M25.512) [place] [facility] report reviewed from 02/20/22 . The [...] pain (ICD-10 - R10.13) The patient advised [place] could be causing her GI upset , [...] month [place] at her next office visit. [facility] Other 09-08-2022 Evaluation note* Encounter Date Diagnosis [...] (ICD-10 - M85.80) Noted on Lumbar x-ray. [facility] Other 08-05-2022 Evaluation note* Encounter Date Diagnosis Assessment Notes Treatment Notes Treatment Clinical Notes Jan, COVID-19 (ICD-10 - U07.1) [facility] Other 08-05-2022 Evaluation note* Encounter Date Diagnosis Assessment Notes Treatment Notes Treatment Clinical Notes Jan, Cough (ICD-10 - R05.9) In house covid test is positive. Treatment plan discussed in TE. 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 I did forward a copy of most current blood work results . [facility] Other 04-04-2022 Evaluation note* Encounter Date Diagnosis Assessment Notes Treatment Notes Treatment Clinical Notes Sep, PMR (polymyalgia rheumatica) (IC D-10 - M35.3) Sep,Hypertension (ICD-10 - I10) [facility] Other 02-24-2022 Evaluation note* Encounter Date Diagnosis [...] if needed. We will continue to montior. [facility] Other 02-16-2022 Evaluation note* Encounter Date Diagnosis Assessment Notes Treatment Notes Treatment Clinical Notes Jul, PMR (polymyalgia rheumatica) (IC D-10 - M35.3) [facility] Other 11-30-2021 Evaluation note* Encounter Date Diagnosis Assessment Notes Treatment Notes Treatment Clinical Notes Apr, PMR (polymyalgia rheumatica) (IC D-10 - M35.3) [facility] Other 11-18-2021 Evaluation note* Encounter Date Diagnosis [...] Apr,Hypothyroidism (ICD-10 - E03.9) Blood work ordered. [facility] Other [id number] History general Narrative - Reported* Type Description Date Medical History [facility] [id number], 02-15-15-mammogram-negativeMedical History 01/20122569-gnrwewtojqu-oxyfar, repeat in 3 yrsMedical Klrrael56/2017- colonoscopy- normalMedical Historyf/u with cardiology NOHCMedical HistoryECHO 09/2016Surgical HistoryAppendectomySurgical HistoryGallbladder RemovalSurgical HistoryOvarian Cyst RemovalSurgical HistoryCoccyx repairSurgical HistoryCataracts Bilateral EyesSurgical Historythyroidectomy Dr. Forbes10/14/2019Hospitalization History Childbirth [id number] HistorySee Above [facility] Other Evaluation noteNo InformationNortMeet You Other Evaluation note* Diagnosis Aortic valve stenosis, etiology of cardiac valve disease unspecified Essential hypertension Unspecified essential hypertension Hyperlipidemia, unspecified hyperlipidemia type Never smoked any substance documented in this encounter [facility] Work Phone: Evaluation note* Diagnosis Aortic valve stenosis, etiology of cardiac valve disease unspecified- Primary Essential hypertension Unspecified essential hypertension Hyperlipidemia, unspecified hyperlipidemia type Never smoked any substance BMI 26.0-26.9,adult Hypothyroidism, unspecified type documented in this encounter [facility] Work Phone: Evaluation note* Diagnosis Nonrheumatic aortic valve stenosis Aortic valve stenosis, etiology of cardiac valve disease unspecified documented in this encounter [facility] Work Phone: Evaluation note* Diagnosis 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- Primary BMI 26.0-26.9,adult documented in this encounter [facility] Work Phone: Evaluation note* Diagnosis Aortic valve stenosis, etiology of cardiac valve disease unspecified documented in this encounter [facility] Work Phone: Evaluation note* Diagnosis Nonrheumatic aortic valve stenosis- Primary 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 Hyperlipidemia, unspecified hyperlipidemia type PMR (polymyalgia rheumatica) (Multi) Polymyalgia rheumatica Hypothyroidism, unspecified type BMI 27.0-27.9,adult Never smoked any substance Overweight documented in this encounter [facility] Work Phone: Reason for visit Narrative* CV Imaging (Routine) - AuthorizedSpecialtyDiagnoses / ProceduresReferred By ContactReferred To ContactCardiology Diagnoses Aortic valve stenosis, etiology of cardiac valve disease unspecified Procedures Transthoracic Echo Complete SC ECHO TTHRC R-T 2D W/WOM-MODE COMPL SPEC&COLR D Shy Wolf MD [address] [facility] [address], [address] [address] Phone: tel: fax: Referral IDStatusReasonStart DateExpiration DateVisits RequestedVisits [id number] Perform Procedure [facility] Work Phone: Chief Complaint * LAVONNE [...] being tapered gradually * Shy Wolf MD, [facility] * LAVONNE VILLATORO is being seen [...] PMR (polymyalgia rhe umatica) (M35.3) Referral Organization [facility] [place] Referring Provider First Name Suhas Referring Provider Last Name Ugo Referring Provider Specialty Family Prac sukhjinedr Referred Organization [facility] Referred Address [address] [place], [place],[address] Referred Provider Specialty Rheumatology Referral Priority Routine [...] W/WOM-MODE COMPL SPEC&COLR D Shy Wolf MD [address] [place] [address] 2, Nishant [address] [place] [address] Referral IDStatusReasonStronald DateExpiration DateVisits RequestedVisits [id number] Review Perform Procedure [id number] / ProceduresReferred By ContactReferred To ContactCardiology Diagnoses Aortic valve stenosis, etiology of cardiac valve disease unspecified Procedures Follow Up In Cardiology Shy Wolf MD [address] [place] [address] 2, [address] [address] Shy Wolf MD [address] [facility] [address], [address] [address] Ref[facility]Status[facility] DateExpiration DateVisits RequestedVisits [id number]/[id number] Additional Source Comments REASON FOR VISIT (unrecogniz ed section and content) ReasonCommentsFollow-up9 month, echocardiogram resultsSpecialtyDiagnoses / ProceduresReferred By ContactReferred To ContactCardiology Diagnoses Aortic valve stenosis, etiology of cardiac valve disease unspecified Procedures Follow Up In Cardiology Shy Wolf MD [address] [place] [address], [address] [address] Phone: tel: fax: Shy Wolf MD [address] [place] [address], [place] [phone] Phone: tel: fax: Referral IDStatusReasonStart DateExpiration DateVisits RequestedVisits [id number] CommentsFollow-ur0hZyfcsain IDStatusReasonStart DateExpiration DateVisits RequestedVisits [id number] Diagnoses / ProceduresReferred By ContactReferred To ContactCardiology Diagnoses Nonrheumatic aortic valve stenosis Procedures Transthoracic Echo (TTE) Complete SC ECHO TRANSTHORC R-T 2D W/WO M-MODE REC F-UP/LMTD SC DOP ECHOCARD COLOR FLOW VELOCITY MAPPING SC DOP ECHOCARD PULSE WAVE W/SPECTRAL F-UP/LMTD STD Shy Wolf MD [address] [place] [id number] Referral IDStatusReasonStart DateExpiration DateVisits RequestedVisits [id number] Perform Procedure /[id number]-is ClearancePOC for spinal cord stimulator, scheduled 12.13.[address] Weston. INFORMATION SOURCE (unrecogn ized section and content) DATE CREATED AUTHOR 03/06/2022 [facility] DATE CREATED AUTHOR AUTHOR'S ORGANIZ ATION 12/25/2022 [facility] DATE CREATED AUTHOR AUTHOR'S ORGANIZ ATION 12/25/2022 [employer] DATE CREATED AUTHOR AUTHOR'S ORGANIZ ATION 03/03/2023 [facility] DATE CREATED AUTHOR AUTHOR'S ORGANIZ ATION 07/29/2024 [facility] DATE CREATED AUTHOR AUTHOR'S ORGANIZ ATION 12/25/2024 [facility] DATE CREATED AUTHOR AUTHOR'S ORGANIZ ATION 01/16/2025 [facility] DATE CREATED AUTHOR AUTHOR'S ORGANIZ ATION 02/23/2025 [facility] Care Teams (unrecognized sec tion and content) Team MemberRelationshipSpecialtyStart DateEnd Date Suhas Garrett DO PCP - General06/09/99Team MemberRelationshipSpecialtyStart DateEnd Date Suhas Garrett DO [address] [place] [address] PCP - [facility] Medicine01/30/24Team MemberRelationshipSpecialtyStart DateEnd Date Suhas Garrett DO [address] [place] [address] [facility]/24Team MemberRelationshipSpecialtyStart DateEnd Date Suhas Garrett DO [address] [place] [address] PCP - GeneralFamily Medicine01/30/24Team MemberRelationshipSpecialtyStart DateEnd Date Suhas Garrett DO [address] [place] [address] PCP - GeneralFamily Medicine01/30/24Team MemberRelationshipSpecialtyStart DateEnd Date Suhas Garrett DO [address] [place] [address] PCP - GeneralFamily Medicine01/30/24 FOR RECORDS PERTAINING [...] BE BASED ON THE PRIMARY CLINICAL RECORDS. [facility] [employer] [facility]. provides no warranty or guarantee of the accuracy or completeness of information in this document.
[2025-04-06 15:58] LABS: Hematocrit 37.5 % (36.0-48.0); Hemoglobin 12.3 g/dL (12.0-16.0); Immature Granulocytes Abs Auto 0.05 10^3/uL (0.00-0.03); Immature Granulocytes Pct Auto 0.5 % (0.0-0.5); Lymphocytes Absolute Auto 1.4 10^3/uL (1.2-3.8); Mean Corpuscular HGB Conc 32.8 g/dL (29.9-35.2); Mean Corpuscular Hemoglobin 33.5 pg (26.7-34.0); Mean Corpuscular Volume 102.2 fL (81.0-99.0); Platelet Count 226 10^3/uL (150-450); Red Blood Count 3.67 10^6/uL (4.20-5.40); White Blood Count 9.2 10^3/uL (4.0-11.0)
[2025-04-06 16:30] LABS: Alanine Aminotransferase 141 U/L (14-59); Albumin Globulin Ratio 0.9; Albumin Level 3.2 g/dL (3.4-5.0); Alkaline Phosphatase 280 U/L (46-116); Anion Gap 10.5; Aspartate Amino Transferase 48 U/L (15-37); Blood Urea Nitrogen 20.0 mg/dL (7.0-18.0); Calcium 9.4 mg/dL (8.5-10.1); Carbon Dioxide 30.6 mmol/L (21.0-32.0); Chloride 102 mmol/L (98-107); Estimated GFR (African America >60 (>=60 mL/min/1.73m^2); Estimated GFR (Non-African Ame >60 (>=60 mL/min/1.73m^2); Globulin 3.4 g/dL; Glucose 116 mg/dL (74-106); Potassium 4.1 mmol/L (3.5-5.1); Sodium 139 mmol/L (136-145); Total Protein 6.6 g/dL (6.4-8.2)
== END 2025-04-06 14:56 | disposition home or self-care (01) ==
PROVIDERS: PCP Family Medicine; Visit Provider Nurse Practitioner
DX: Z51.81 Encounter for therapeutic drug level monitoring (principal); G89.18 Other acute postprocedural pain; R60.0 Localized edema
CPT/HCPCS: 36415; 80053; 85025

== ENCOUNTER 2025-04-09 05:26 | Emergency (ER) | payer MEDICARE, OTHER, SELFPAY ==
[2025-04-09 05:27] VITALS: BP 186/79; PULSE 62; TEMP 36.6; O2SAT 99; BMI 28.3
--- NOTE | 2025-04-09 05:46 | CT_ITS ---
The [address] [address] Patient Name: LAVONNE VILLATORO MRN: [id number] date: 1935 Sex: F Assigned Patient Location: ER Current Patient Location: ED.MAIN Accession/Order Number: [id number] Exam Date: 04/09/2025 06:10 Report Date: 04/09/2025 09:07 At the request of: TAMMI MARTELL MD Procedure: CT abdomen pelvis w con CT ABDOMEN AND PELVIS WITH INTRAVENOUS CONTRAST: CLINICAL HISTORY: low abd pain COMPARISON: 03/30/2025 TECHNIQUE: Spiral images were obtained through the abdomen and pelvis following the administration of intravenous contrast. This CT exam was performed using one or more following dose reduction techniques: Automated exposure control, adjustment of the mA and/or kV according to patient size, or use of iterative reconstruction technique. FINDINGS: Lung Bases: [Hypoventilatory changes.] Organs:Cholecystectomy.[1.1 cm right liver hypodensity noted indeterminate possible cysts or hemangioma.. Physiologic ectasia of the biliary tree identified.. Right lower pole renal cyst. There are additional subcentimeter renal hypodensity is identified. No hydronephrosis. Otherwise spleen, pancreas unremarkable. Adrenals unremarkable. GI: Moderate retained stool throughout the colon. No bowel obstruction.[. Appendix not visualized. No pericecal inflammatory changes. Pelvis:[Bladder is collapsed. Uterus heterogeneous but otherwise unremarkable.] No adnexal mass. Peritoneum/Retroperitoneum:No free air or free fluid.[Pfgt-xk-nvhpntjt plaque involving the nonaneurysmal aorta. No bulky adenopathy. Abd wall/Bones:Superior plate compression T11-T12 likely chronic. Evidence of left subarticular disc extrusion L4-5[. Evidence of a right posterior gluteal region stimulator device noted with fat stranding within the right posterior buttock soft tissues and fat stranding and fluid posterior paraspinal region adjacent the leads possibly related to recent insertion. CT/CT abdomen pelvis w con IMPRESSION: Negative acute inflammatory process or bowel obstruction. Right hepatic hypodensity 1.1 cm size possible cysts or hemangioma, indeterminate.. Postsurgical changes suspected status post interval insertion of a pain stimulator device with likely postsurgical seroma and tiny locules of gas. Correlate with clinical exam findings. Impression dictated by: Simba Cardona M.D. 04/09/2025 9:07 AM Dictation Location: [place] [address] Electronically authenticated by: [id number] Date: 04/09/2025 09:07
--- NOTE | 2025-04-09 05:46 | ED.GENADUL1 ---
HPI HPI - General Adult General Chief complaint: Abdominal Pain Stated complaint: ABDOMINAL PAIN Time Seen by Provider: 04/09/25 05:39 Source: patient Mode of arrival: ambulance History of Present Illness HPI narrative: 89-year-old female presents for abdominal pain which began this morning, about 2 hours ago. She points across the lower abdomen. No dysuria hematuria constipation or diarrhea. 5 days ago she had an implantable spinal stimulator placed, in her back. No fever or trauma. She has difficulty describing the pain. Related Data Home Medications ?Medication ?Instructions ?Recorded ?Confirmed aspirin 81 mg capsule 81 mg PO DAILY 08/25/23 04/09/25 carvedilol 6.25 mg tablet 6.25 mg PO Q12H 08/25/23 04/09/25 levothyroxine 100 mcg tablet 100 mcg PO DAILY 08/25/23 04/09/25 lorazepam 0.5 mg tablet 0.5 mg PO Q8H PRN anxiety 10/25/24 04/09/25 acetaminophen 650 mg 1,300 mg PO Q12H PRN pain 11/29/24 04/09/25 tablet,extended release amlodipine 5 mg tablet 5 mg PO DAILY 11/29/24 04/09/25 losartan 100 1 tab PO DAILY 11/29/24 04/09/25 mg-hydrochlorothiazide 25 mg tablet multivitamin (Daily Multi-Vitamin 1 tab PO DAILY 11/29/24 04/09/25 tablet) gabapentin 300 mg capsule 300 mg PO Q8H 02/08/25 04/09/25 gabapentin 100 mg capsule 100 mg PO Q8H 04/09/25 04/09/25 Previous Rx's ?Medication ?Instructions ?Recorded methocarbamol 500 mg tablet 500 mg PO Q8H PRN pain #20 tabs 03/29/25 clindamycin HCl 300 mg capsule 300 mg PO BID #14 caps 03/30/25 tramadol 50 mg tablet 50 mg PO Q6H PRN pain #16 tabs 04/04/25 baclofen 10 mg tablet See Rx Instructions .Route 04/06/25 .COMPLEX PRN muscle spasm #90 tabs Allergies Allergy/AdvReac Type Severity Reaction Status Date / Time amoxicillin Allergy Mild Rash Verified 04/09/25 05:40 divalproex sodium (From Allergy Unknown hair loss Verified 04/09/25 05:40 Depakote) hydrocodone Allergy Unknown Rash Verified 04/09/25 05:40 phenytoin (From Dilantin) Allergy Unknown Rash Verified 04/09/25 05:40 alendronate sodium (From AdvReac eye pain Verified 04/09/25 05:40 Fosamax) Opioid HPI Opioid Management Most Recent Opioid Data: Last Pain Scale 7 04/04/25, 09:09 Last Pain Assessment 04/04/25, 09:09 Review of Systems ROS Narrative A ten point review of systems is negative except as noted above. [facility] PFS Medical History 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 ?I10 - Essential (primary) hypertension (ICD-10) Lumbar stenosis with neurogenic claudication ?M48.062 - Spinal stenosis, lumbar region with neurogenic claudication (ICD-10) Back pain ?M54.9 - Dorsalgia, unspecified (ICD-10) Shoulder pain ?M25.519 - Pain in unspecified shoulder (ICD-10) Seizures (1987) ?R56.9 - Unspecified convulsions (ICD-10) Heartburn ?R12 - Heartburn (ICD-10) Cataract ?H26.9 - Unspecified cataract (ICD-10) Hepatic lesion ?K76.9 - Liver disease, unspecified (ICD-10) Insomnia ?G47.00 - Insomnia, unspecified (ICD-10) Lung density on x-ray ?J98.4 - Other disorders of lung (ICD-10) Multinodular thyroid ?E04.2 - Nontoxic multinodular goiter (ICD-10) Hypothyroidism (acquired) ?E03.9 - Hypothyroidism, unspecified (ICD-10) Hyperlipidemia ?E78.5 - Hyperlipidemia, unspecified (ICD-10) Aortic stenosis ?I35.0 - Nonrheumatic aortic (valve) stenosis (ICD-10) Polymyalgia rheumatica ?M35.3 - Polymyalgia rheumatica (ICD-10) Hyperthyroidism ?E05.90 - Thyrotoxicosis, unspecified without thyrotoxic crisis or storm (ICD-10) Heart murmur ?R01.1 - Cardiac murmur, unspecified (ICD-10) HTN (hypertension) ?I10 - Essential (primary) hypertension (ICD-10) Surgical History S/P epidural steroid injection ?Z92.241 - Personal history of systemic steroid therapy (ICD-10) History of cataract extraction with lens replacement H/O excision of mass ?Z98.890 - Other specified postprocedural states (ICD-10) H/O colonoscopy ?Z98.890 - Other specified postprocedural states (ICD-10) 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 - Postprocedural hypothyroidism (ICD-10) Hx of cholecystectomy ?Z90.49 - Acquired absence of other specified parts of digestive tract (ICD-10) History of ovarian cystectomy ?Z98.890 - Other specified postprocedural states (ICD-10) ?Z87.42 - Personal history of other diseases of the female genital tract (ICD-10) History of appendectomy ?Z90.49 - Acquired absence of other specified parts of digestive tract (ICD-10) Family History Other Family history of DVT Family history of aneurysm Family history of cancer Family history of diabetes mellitus Family history of heart disease Social History Within the past year, how often did you have a drink containing alcohol: monthly or less Smoking status: Never smoker Non-prescribed substance use: denies use Highest level of school completed/degree received: high school graduate Little interest or pleasure in doing things: not at all Feeling down, depressed, or hopeless: not at all Exam Narrative Exam Narrative: Nurses note and vital signs reviewed General:The patient appears well and in no apparent distress.Patient is resting comfortably on cart. Skin:Warm, dry, no pallor noted.There is no rash noted. Head:Normocephalic, atraumatic Eye: Normal conjunctiva, no drainage Ears, Nose, Mouth, and Throat: oral mucosa is moist. Nares patent. Cardiovascular:Regular Rate and Rhythm Respiratory:Patient is in no distress, no accessory muscle use, lungs are clear to auscultation, no wheezing, rales or rhonchi Back:non-tender, no CVA tenderness bilaterally to percussion. GI:Normal bowel sounds, mild tenderness to palpation across the lower abdomen Musculoskeletal: The patient has no evidence of calf tenderness, there is trace bilateral ankle edema Neurological:A&O, normal speech Psychiatric:Cooperative Constitutional Vital Signs, click to edit/add: Last Vital Signs Temp 97.8 F 04/09/25 05:27 Pulse 62 04/09/25 05:27 Resp 20 04/09/25 05:27 BP 186/79 H 04/09/25 05:27 Pulse Ox 99 04/09/25 05:27 O2 Del Method Room Air 04/09/25 05:27 Course Vital Signs Vital signs: Vital Signs Temperature 97.8 F 04/09/25 05:27 Pulse Rate 62 04/09/25 05:27 Respiratory Rate 20 04/09/25 05:27 Blood Pressure 186/79 H 04/09/25 05:27 Pulse Oximetry 99 04/09/25 05:27 Oxygen Delivery Method Room Air 04/09/25 05:27 Temperature 97.8 F 04/09/25 05:27 Pulse Rate 62 04/09/25 05:27 Respiratory Rate 20 04/09/25 05:27 Blood Pressure 186/79 H 04/09/25 05:27 Pulse Oximetry 99 04/09/25 05:27 Oxygen Delivery Method Room Air 04/09/25 05:27 Medical Decision Making MDM Narrative Medical decision making narrative: Blood work and urinalysis are negative. CT scan is ordered and pending and the patient is signed out to Dr. Baird at change of shift. Differential Diagnosis Differential Diagnosis: Constipation, diverticulitis Lab Data Lab results reviewed: Yes I reviewed the patient's lab results Labs: Lab Results 04/09/25 04/09/25 Range/Units 05:30 05:58 WBC 6.6 (4.0-11.0) 10^3/uL RBC 3.84 L (4.20-5.40) 10^6/uL Hgb 13.0 (12.0-16.0) g/dL Hct 38.9 (36.0-48.0) % MCV 101.3 H (81.0-99.0) fL MCH 33.9 (26.7-34.0) pg MCHC 33.4 (29.9-35.2) g/dL RDW 13.5 (11.0-15.0) % Plt Count 277 (150-450) 10^3/uL MPV 10.7 (9.5-13.5) fL Neut % (Auto) 43.1 (43.0-75.0) % Lymph % (Auto) 41.2 (20.5-60.0) % [place] % (Auto) 11.3 (1.7-12.0) % Eos % (Auto) 2.7 (0.9-7.0) % Baso % (Auto) 1.1 (0.2-2.0) % Neut # (Auto) 2.8 (1.4-6.5) 10^3/uL Lymph # (Auto) 2.7 (1.2-3.8) 10^3/uL [place] # (Auto) 0.7 (0.3-0.8) 10^3/uL Eos # (Auto) 0.2 (0.0-0.7) 10^3/uL Baso # (Auto) 0.1 (0.0-0.1) 10^3/uL Abs Immat Gran (auto) 0.04 H (0.00-0.03) 10^3/uL Imm/Tot Granulo (auto) 0.6 H (0.0-0.5) % Sodium 142 (136-145) mmol/L Potassium 4.1 (3.5-5.1) mmol/L Chloride 107 (98-107) mmol/L Carbon Dioxide 29.0 (21.0-32.0) mmol/L Anion Gap 10.1 BUN 21.0 H (7.0-18.0) mg/dL Creatinine 0.74 (0.55-1.02) mg/dL Est GFR ( Amer) >60 (>=60 mL/min/1.73m^2) Est GFR (Non-Af Amer) >60 (>=60 mL/min/1.73m^2) BUN/Creatinine Ratio 28.4 Glucose 96 (74-106) mg/dL Calcium 9.3 (8.5-10.1) mg/dL Total Bilirubin 0.6 (0.2-1.0) mg/dL Direct Bilirubin 0.1 (0.0-0.2) mg/dL AST 22 (15-37) U/L ALT 76 H (14-59) U/L Alkaline Phosphatase 225 H (46-116) U/L Total Protein 6.7 (6.4-8.2) g/dL Albumin 3.2 L (3.4-5.0) g/dL Globulin 3.5 g/dL Albumin/Globulin Ratio 0.9 Amylase 161 H (25-115) U/L Lipase 39.0 (16.0-77.0) U/L Urine Color Lt. yellow (YELLOW) Urine Clarity Clear (CLEAR) Urine pH 7.0 (5.0-9.0) Ur Specific [place] 1.010 (1.005-1.025) Urine Protein Negative (NEG/TRACE) mg/dL Urine Glucose (UA) Negative (NEGATIVE) mg/dL Urine Ketones Negative (NEGATIVE) mg/dL Urine Occult Blood Trace-i (NEGATIVE) Urine Nitrite Negative (NEGATIVE) Urine Bilirubin Negative (NEGATIVE) Urine Urobilinogen 0.2 (0.2-1.0) EU/dL Ur Leukocyte Esterase Negative (NEGATIVE) Urine RBC 0-2 (0-2) #/HPF Urine WBC 0-2 A (NONE SEEN) #/HPF Ur Squamous Epith Cells Rare (NONE/RARE) #/LPF Urine Crystals None seen (None Seen) #/HPF Urine Bacteria Trace A (NONE SEEN) #/HPF Urine Casts None seen (NONE SEEN) #/LPF Urine Mucus None seen (NONE SEEN) Ur Culture Indicated? No Discharge Plan Discharge Patient Disposition: Still a Patient
--- OUTSIDE RECORDS SUMMARY | 2025-04-09 05:49 | XMS_ITS | Clinical Summary ---
Author Organization [facility] Address [address] [place] [address] Care Team Providers Care Lien Searcher Name Role Phone Suhas Arizmendi DO Unavailable Suhas Arizmendi DO Primary Care Provider [phone] Allergies Active AllergyReactionsCriticalityNoted DateCommentsDivalproex SodiumIntolerance 03/29/2005Phenytoin Sodium RvmabpkoYxlh49/21/2005 Medications MedicationSigDispense QuantityRefillsLast FilledStart DateEnd DateStatus NORVASC 5 MG TAB Take one(1) tablet daily.Active DIOVAN HCT 160 MG-12.5 MG TAB twice a pbb055Active METOPROLOL SR 50 MG 24 HR TAB once a qmd470Active SYNTHROID 100 MCG TAB Take one(1) tablet daily.Active CALCIUM ANTACID 500 MG CHEWABLE TAB Calcium with D 600mg once a rll454Active VIT [id number] ACID-MAG OX 100 UNIT-2.05 MG TAB Vit e 400 IU every other szl825Active ASPIRIN 81 MG TAB once a xue571Active Family History Medical HistoryRelationCommentsNoneMotherno family history of breast cancer RelationStatusCommentsMother Social History Tobacco UseTypesPacks/DayYears UsedDateSmoking Tobacco: Never Assessed CommentsUnknownSex and Gender InformationValueDate RecordedSex Assigned at Not on fileLegal NyzEjjlxi59/02/2012 7:32 AM ESTGender IdentityNot on fileSexual OrientationNot on file Plan of Treatment Health MaintenanceDue DateLast DoneCommentsAnxiety Ropvzowre18/04/1955Depression Haukjbyir14/04/1955DTaP,Tdap,Td Vaccine (1 - Tdap)08/11/1955Diabetes Screening 1981Pneumococcal Vaccine: 50+ (1 of 1 - PCV)1986Shingrix Vaccine (1 of 2)1986Bone Density Ohzvbwagt75/04/2002RSV Vaccine (1 - 1-dose 75+ series)08/11/2011dvance Directive Vorgcnsnbc55/01/2025ovid-19 Vaccine (1 - 2024-26 season)2025Influenza Vaccine (#1)2025 Insurance Care Teams Team MemberRelationshipSpecialtyStart DateEnd Date Suhas Arizmendi DO [address] [place] [address] PCP - Generalmily Medicine07/23/23 Suhas Arizmendi DO [address] [place] [address] ReferringFabaystate mary lane hospital Medicine07/23/23
--- OUTSIDE RECORDS SUMMARY | 2025-04-09 05:49 | XMS_ITS | Clinical Summary ---
Author Organization [facility] Address [address] [facility] [place] [address] Care Team Providers Care Store Receiving Specialist Name Role Phone Unavailable Primary Care Provider Unavailabl e Social History Tobacco UseTypesPacks/DayYears UsedDateSmoking Tobacco: Never Assessed CommentsUnknownSex and Gender InformationValueDate RecordedSex Assigned at Not on fileLegal KleRjajhh32/15/2023 7:21 PM EDTGender IdentityNot on fileSexual OrientationNot on file Last Filed Vital Signs Vital SignReadingTime TakenCommentsBlood Pressure--Pulse--Temperature-- Respiratory Rate--Oxygen Saturation--Inhaled Oxygen Concentration--Rqdvhv59.5 kg (140 lb)04/21/2020 12:00 PM QCTFnptig198.5 cm (5' 2 )04/21/2020 12:00 PM ESTBody Mass Index25.6104/21/2020 12:00 PM EST Plan of Treatment [place] [address]
--- OUTSIDE RECORDS SUMMARY | 2025-04-09 05:49 | XMS_ITS | Clinical Summary ---
Author Organization [facility] Address [address] [place] [address] Phone Care Team Providers Care Road Mender Name Role Phone Shuas Arizmendi DO Primary Care Provider [phone] Allergies Active AllergyReactionsCriticalityNoted GzcnWzugqtwdIvsmusliameIhope12/27/2023 Eye pain HpahouaurqkXkintDtlw48/27/3758NvscvommukGjdvf99/01/2025 Hair loss HydrocodoneGI ZtztuGjcwtl18/11/1512GogqgtapoVlqeYkv94/27/2023Valproic Acid Clubvce9106/04/2023 Medications MedicationSigDispense QuantityRefillsLast FilledStart DateEnd DateStatus multivit-min/ferrous [...] Problems ProblemNoted DateDiagnosed DateBMI 27.0-27.9,adult04/16/2024Never smoked any ciezgkjtv02/11/2024ortic aqkrwqfh12/27/2023arotid bruit06/04/2023White coat syndrome with diagnosis of zeublvoycvqa14/27/6046Mohwqppiamzgxz97/27/2023 Aschnvfqiextdn77/27/2023Murmur, ewpzszv0706/04/2023MR (polymyalgia rheumatica) 06/04/2023 Encounters DateTypeDepartmentCare RndkBnogjpaqewb74/08/2025 11:[address] [place] [address] Michel Wolf MD Nonrheumatic aortic valve stenosis (Primary Dx); 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; Hyperlipidemia, unspecified hyperlipidemia type; PMR (polymyalgia rheumatica) ([facility]); Hypothyroidism, unspecified type; BMI 27.0-27.9,adult; Never smoked any substance; Lsrlwjbdsg40/08/2025Travelfrom Last 3 Months Immunizations ImmunizationAdministration DatesNext DueFlu vaccine, trivalent, preservative free, HIGH-DOSE, age 65y+ (Fluzone)03/09/2019Flu vaccine, trivalent, preservative free, age 6 months and greater (Fluarix/Fluzone/Flulaval)04/05/2014 Influenza Whole03/09/2014Influenza, Seasonal, Quadrivalent, Jyracbztwg38/25/2023 ,03/21/2022Influenza, Qixkxfwrrlk51/01/2018,04/09/2017,03/09/2016,03/09/2015, 03/09/2013,06/09/2011,06/09/2010,06/09/2009Influenza, injectable, quadrivalent 04/07/2015,04/14/2012Influenza, seasonal, iojlhymqlx44/01/2020,03/04/2019 Influenza, trivalent, pvmuwqwzwq42/30/2024,03/06/2020,03/16/2018,03/28/2017, 04/01/2016Moderna COVID-19 vaccine, 12 years and older (50mcg/0.5mL)(Spikevax) 04/07/2024,04/02/2023Moderna COVID-19 vaccine, bivalent, blue cap/uribe label *Check age/dose*04/17/2022Novel ytxiezlfw-O4H4-11, preservative-free05/30/2009 Pneumococcal conjugate vaccine, 13-valent (PREVNAR 13)05/24/2016,05/23/2016, [...] InformationValueDate RecordedSex Assigned at BirthNot on fileLegal DbcHpyklm09/25/2022 8:57 AM ESTGender Identity Not on fileSexual OrientationNot on file Last Filed Vital Signs Vital SignReadingTime TakenCommentsBlood Okdffstt990/7808 11:07 AM EDT Rnibn8093/08/2025 11:07 AM EDTTemperature--Respiratory Rate--Oxygen Saturation-- Inhaled Oxygen Concentration--Kpsgxk28 kg (150 lb)01/14/2025 11:07 AM EDTHeight 157.5 cm (5' 2 )01/14/2025 11:07 AM EDTBody Mass Index27.44001/14/2025 11:07 AM EDT Plan of Treatment DateTypeDepartmentCare Team (Latest Contact Info)Embljqweqeg33/14/2026 9:45 AM EDTAppointment [facility] [address] [place] [id number] 01/26/2026 11:00 AM EDTOffice Visit [facility] [address] [facility] [address] [place] [phone] Michel Wolf MD [address] [facility] [address] [place], [place] [id number] Health MaintenanceDue DateLast DoneCommentsLipid Panel1936TSH Level 1936Hepatitis A Vaccines (1 of 2 - Risk 2-dose series)08/11/1955Hepatitis B Vaccines (1 of 3 - Risk 3-dose series)1996Bone Density Scan02/19/2024 02/18/2022Influenza Vaccine (#1)51, 04/02/2023, 03/21/2022, Additional history existsCOVID-19 Vaccine ( season)2025 04/07/2024, 04/02/2023, 04/17/2022, Additional history existsMedicare Annual Wellness Visit (AWV)602/, 04/28/2020DTaP/Tdap/Td Vaccines (2 - Td or Tdap)Zoster JmamaehqFqzwjcmpn10/26/2019, 02/04/2019, 10/19/2007RSV High Risk: (Elderly (60+) or Population)Completed 3Pneumococcal EbrivblJcnhmwtvl04/15/2024, 04/28/2020, 05/24/2016, Additional history existsHIB VaccinesAged OutNo [...] DateEnd Date Suhas Arizmendi DO [address] [place] [address] [facility] - [facility]/30/24
--- OUTSIDE RECORDS SUMMARY | 2025-04-09 05:49 | XMS_ITS | CCD ---
Author Organization [facility] Care Team Providers Care Bilingual Inside Sales Representative Name Role Phone Suhas Garrett Unavailable Suhas Garrett Unavailable Unavailable Unavailable MAYO CARBAJAL Consulting Unavailable UGO, DR BAIRD Primary Care Unavailable WALT VELIZ Attending Unavailable WALT VELIZ Admitting Unavailable Ugo, Dr. Suhas Liang Primary Care Unavaila ble Wolf, Dr. Shy Agosto Referring Radha vailable Wolf, Dr. Shy Agosot Attending Radha vailable Wolf, Dr. Shy Agosto Attending Radha vailable Kunadan, Dr. Suhas Liang Primary Care Unavaila ble Wolf, Dr. Shy Agosto Referring Radha vailable Kunadan, Dr. Suhas Liang Primary Care Unavaila ble SHY WOLF Attending Unavail able Suhas Garrett DO Primary Care Provider [phone] Suhas Garrett DO Primary Care Provider Suhas Garrett Primary Care Unavailable Suhas Garrett Admitting Unavailable KunSuhas arellano Attending Unavailable KunSuhas arellano Attending Unavailable Suhas Garrett Primary Care Unavailable KunsSuhas Admitting Unavailable KunSuhas arellano Attending Unavailable Suhas Garrett Primary Care Unavailable KunsSuhas Admitting Unavailable KunsSuhas Attending Unavailable Suhas Garrett Primary Care Unavailable GaelsSuhas Admitting Unavailable Kuns Suhas TYLER Primary Care Provider [phone] SHY WOLF Referring Unavailable SUHAS GARRETT Primary [...] of OnsetReaction(s) Facility (20 sources)Alendronate; Translations: [Fosamax]Drug Ecfhjmj17-70-3471NvhaaisMer[facility]ository (20 sources)Amoxicillin; Translations: [amoxicillin]Drug Aehvkfs90-62-1946swnrv [place] [employer] Other (20 sources)Phenytoin; Translations: [Dilantin CAPS]Drug Hlzszha49-87-2877Bqbq [place] [employer] Other (20 sources)Valproate; Translations: [Depakote ER TB24]Drug AllergyUnknowPeaceHealth [employer] Other (1 source)AlendronateDrug AllergyThe [facility] Repository (1 source)AmoxicillinDrug AllergyTrihealth Repository (1 source)PhenytoinDrug AllergyTrihealth Repository (1 source)ValproateDrug AllergyThe [facility] Repository (20 sources)Acetaminophen / HYDROcodoneDrug Allergyelevated liver enzymesMilitary Health System [employer] Other (6 sources)AlendronateDrug Hyrrymi43-33-2670MlmvrptOur Lady of Mercy [facility] - [facility] (8 sources)HYDROcodone; Translations: [HYDROCODONE]Drug Rhnfcll76-34-8861PEOhioHealth Doctors Hospital Work Phone: (8 sources)Valproate; Translations: [VALPROIC ACID]Drug Yshtvcp73-06-7611PtkhypvMetroHealth [facility] Work Phone: (1 source)AcetaminophenDrug Ietjcys38-10-8757VwevymoblSt. Francis Hospital Repository (1 source)AlendronateDrug Ovdrneu74-75-9092HcndjgqshSt. Francis Hospital Repository (1 source)AmoxicillinDrug Ixpfiqt55-90-1493YdurwethwSt. Francis Hospital Repository (1 source)HYDROcodoneDrug Scamjqn16-24-9247LfpjwqblrSt. Francis Hospital Repository (1 source)PhenytoinDrug Brceshk49-77-1309WpxhxybkjSt. Francis Hospital Repository (1 source)ValproateDrug Mlqknyh61-80-9021KmxlgozpzSt. Francis Hospital Repository (5 sources)Valproate; Translations: [DIVALPROEX]Drug Pvequbp04-55-2843JauanSelect Medical Specialty Hospital - [facility], Inc Work Phone: Medications Current Medications MedicationDrug Class(es)DatesSig [...] mg oral tablet (20 sources)Nonsteroidal Anti-inflammatory DrugStart: 87-90-1176dpgn 1 tablet by mouth twice daily at mealtime as neededIbuprofen 600 MG 1 tablet with food or milk as needed Orally Twice a day as needed with food Jan, ActiveStart: 58-10-2696tkoc 1 tablet by mouth three times daily at mealtime as needed Ibuprofen 600 MG 1 tablet with food or milk as needed Orally TID PRN with food Jan, Not-Takinglevothyroxine sodium 0.1 mg oral tablet (20 sources)l-ThyroxineStart: 91-52-2747gjnr 1 tablet by mouth once daily levothyroxine [...] ActivepredniSONE 10 mg oral tablet (20 sources)Start: 82-63-5638tfzc 1 tablet by mouth once dailypredniSONE (Deltasone) 10 mg tablet Take 1 tablet (10 mg) by mouth once daily. 12/09/2024 ActiveStart: 25-75-5693pxdm 2 tablets by mouth once dailypredniSONE 10 MG 2 tablets x 7 days, 1 tablet x 7 days, then 1/2 tablet or 5mg daily thereafter Orally as directed Jun, ActiveStart: 84-12-6682lojj 1 tablet by mouth every twenty-four hourspredniSONE 20 MG 1 tablet Orally Once a day for 10 days Apr, ActiveStart: 41-98-9518yfnn 1 tablet by mouth every other day predniSONE 2.5 MG 1 tablet Orally alternating every other day with 5mg Nov, ActiveStart: 46-08-3159mlba 1 tablet by mouth every twenty-four hours predniSONE 2.5 MG 1 tablet Orally Once a day Apr, ActiveStart: 63-41-4352jkqw 1 tablet by mouth every twenty-four hourspredniSONE 10 MG 1 tablet Orally Once a day for 90 days Apr, ActiveStart: 80-98-2110vkry 1 tablet by mouth every twenty-four hourspredniSONE 20 MG 1 tablet Orally Once a day for 30 day(s) Apr, ActiveStart: 86-38-8017qnhqygKHVC 20 MG 1 tablet with food or milk Orally 1 tab twice a day x 5 days , 1 tab every day x 5days for 10 days Feb, ActiveStart: 25-35-5208eykd 1 tablet by mouth at mealtime, then take 1 tablet by mouth twice daily, then take 1 tablet by mouth once dailypredniSONE 20 MG 1 tablet with food or milk Orally 1 tab twice a day x 5 days , 1 tab once a day X 5 days Jan, ActiveStart: 47-68-3378bddb 1 tablet by mouth every other daypredniSONE 5 MG 1 tablet Orally alternating every other day with 2.5mg Apr, ActiveStart: 02-22-2020 End: 31-00-0142wayxtcYQXI (Deltasone) 5 mg tablet Take 1 tablet (5 mg) by mouth once daily. Alternating 2.5 tab 11/02/2021 01/14/2025 Discontinued (Dose adjustment)Start: 46-07-6013gaum 1 tablet by mouth every twenty-four hours predniSONE 2.5 MG 1 tablet Orally Once a day Feb, ActiveStart: 56-31-2596qkba 1.5 tablets by mouth every twenty-four hourspredniSONE 5 MG 1.5 tablets Orally Once a day Feb, ActivetraMADol hydrochloride 50 mg oral tablet (5 sources)Opioid AgonistStart: 01-36-0123phqd 1 tablet by mouth every eight hourstraMADol HCl 50 MG 1 tablet as needed Orally tid Jun, ActiveStart: 69-90-6333smnr 1 tablet by mouth every twenty-four hourstraMADol HCl 50 MG 1 tablet as needed Orally Once a day Jun, ActiveTylenol Arthritis Pain 650 MG (20 sources)Tylenol Arthritis Pain 650 MG as directed Orally Not-TakingTylenol Arthritis Pain 650 MG as directed Orally Active Completed/Discontinued Medications MedicationDrug Class(es)DatesSig (Normalized)Sig (Original)amLODIPine 10 mg oral tablet (20 sources)Dihydropyridine Calcium Channel BlockerStart: 39-40-1095fwqa 1 tablet by mouth every twenty-four hoursNorvasc 5 MG 1 tablet Orally Once a day for 90 day(s) May, ActiveStart: 06-03-2017 End: 70-58-5322jmvl 1 tablet by mouth once dailyamLODIPine (Norvasc) 10 mg tablet Take 1 tablet (10 mg) by mouth once daily. 12/13/2021 12/07/2024 D iscontinued (Dose adjustment)calcium carbonate 1500 mg oral tablet (11 sources) End: 93-72-3926mprv 1 tablet by mouth once dailycalcium carbonate [...] 24-Dec-2022 DO ActiveFish Oils (4 sources) End: 89-87-6221mzvm 1 capsule by mouth once dailyomega-3 (Fish [...] Not-Takingmelatonin 5 mg oral tablet (20 sources)Start: 92-44-7217gubt 1 tablet by mouth every twenty-four hours Melatonin 5 MG 1 tablet in the evening Orally Once a day Sep, Not-Taking/PRNmethylPREDNISolone (20 sources)CorticosteroidStart: 18-60-5229FKRA-MEDROL 41 - 125 mg Jan, 125 mgMulti Vitamin Oral Tablet (7 sources)take 1 tablet by mouth once dailyMulti Vitamin Oral Tablet TAKE 1 TABLET DAILY. Quantity: 0 Refills: 0 Ordered: 13-Dec-2021 DO ActiveOmega 3 500 CAPS (4 sources)[place] 3 500 CAPS TAKE 1 CAPSULE Daily Quantity: 0 Refills: 0 Ordered: 13-Dec-2021 DO Activeoxycodone HCl/acetaminophen (OXYCODONE-ACETAMINOPHEN ORAL) (2 sources)Start: 02-23-2024 End: 43-90-1244apltimels HCl/acetaminophen (OXYCODONE-ACETAMINOPHEN ORAL) Take by mouth. 02/23/2024 12/07/2024 Discontinued (Therapy completed)Start: 78-38-4579zobtxtzfv HCl/acetaminophen (OXYCODONE-ACETAMINOPHEN ORAL) Take by mouth. 02/23/2024 ActivetraZODone hydrochloride 50 mg oral tablet (16 sources)Serotonin Reuptake InhibitorStart: 47-95-5100fepa 1 tablet by mouth every twenty-four hourstraZODone HCl 50 MG 1 tablet at bedtime as needed Orally Once a day prn Jul, Not-Taking/PRN Problems Active Problems Problem ClassificationProblemDateDocumented DateEpisodic/ChronicAbdominal pain (20 sources)Generalized abdominal pain; Translations: [Generalized abdominal pain]Onset: 02-22-2022 Resolved: 19-77-2225HcifsddlYmxvugxigeulon/social admission (20 sources)Advance directive discussed with patient; Translations: [Other specified counseling]EpisodicCoronary atherosclerosis and other heart disease (20 sources)Coronary arteriosclerosis; 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 [place] coronary artery without angina pectoris]Onset: 09-03-2023 ChronicDisorders of lipid metabolism (20 sources)Hyperlipidemia; Translations: [Hyperlipidemia, unspecified]Onset: 04-26-2021 Resolved: 59-90-9682KeupyhzBegdxytfl hypertension (20 sources)Hypertensive disorder; Translations: [Essential (primary) hypertension]Onset: 09-10-2021 Resolved: 53-52-1829JzcfgtvYvqnd valve disorders (20 sources)Aortic valve stenosis; Translations: [Aortic valve disorders]Onset: 24-16-6046XduteeuHjurtqkbnab deficiencies (1 source)Vitamin D deficiency, unspecified; Translations: [Vitamin D deficiency, unspecified]Onset: 55-24-3926KgiebzoEjwidziksgvc (1 source)Osteoporosis; Translations: [Age-related osteoporosis without current pathological fracture]ChronicOther aftercare (1 source)Other senior care (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; Translations: [OTH RESTAURANT SERVICE MANAGER CURRENT DRUG THERAPY]Onset: 56-84-0873HwqevsflSqabh bone disease and musculoskeletal deformities (20 sources)Pain of left shoulder blade; Translations: [Other specified disorders of bone, shoulder]EpisodicOther bone disease and musculoskeletal deformities (20 sources)Osteopenia; Translations: [Other specified disorders of bone density and structure, multiple sites]EpisodicOther circulatory disease (20 sources)Cardiovascular symptoms; Translations: [Other specified symptoms and signs involving the circulatory and respiratory systems]EpisodicOther connective tissue disease (20 sources)Polymyalgia rheumatica; Translations: [Polymyalgia rheumatica]Onset: 935007-00-2073ImixajsMirfx connective tissue disease (20 sources)Polymyalgia rheumatica; Translations: [Polymyalgia rheumatica]Onset: 04-26-2021 Resolved: 74-58-0008EaldslwEtsnc connective tissue disease (1 source)Other muscle spasm; Translations: [OTHER MUSCLE SPASM]Onset: 38-72-7717FazqzgjvRbfpu liver diseases (20 sources)Disease of liver; Translations: [Liver disease, unspecified]Chronic Other lower respiratory disease (20 sources)Radiologic increased density of lung; Translations: [Other disorders of lung]EpisodicOther non-epithelial cancer of skin (20 sources)Basal cell carcinoma of skin; Translations: [Basal cell carcinoma of skin, unspecified]EpisodicOther non-traumatic joint disorders (6 sources)Pain in left shoulder; Translations: [PAIN IN LEFT SHOULDER]Onset: 02-20-2022 Resolved: 74-31-2898NllmirvsIhary non-traumatic joint disorders (20 sources)Shoulder pain; Translations: [Pain in left shoulder]EpisodicOther nutritional; endocrine; and metabolic disorders (14 sources)Overweight in adulthood with body mass index of 25 or more but less than 30; Translations: [Overweight]Onset: 624879-14-8783EiywxhqoHkusi nutritional; endocrine; and metabolic disorders (1 source)Overweight; Translations: [Overweight]52-18-5502FnvpifkbMazda nutritional; endocrine; and metabolic disorders (2 sources)Body mass index (BMI) 27.0-27.9, adult; Translations: [Body mass index (BMI) 27.0-27.9, adult]Onset: 48-04-2894YgqyruxzIazfu screening for suspected conditions (not mental disorders or infectious disease) (20 sources)Other specified abnormal findings of blood chemistry; Translations: [Elevated liver function tests]Onset: 02-26-2022 Resolved: 23-24-8027VnrcyddpOnjrzljz codes; unclassified (20 sources)Insomnia; Translations: [Insomnia, unspecified]EpisodicResidual codes; unclassified (20 sources)Family history of malignant neoplasm of gastrointestinal tract; Translations: [Family history of malignant neoplasm of digestive organs]Episodic Residual codes; unclassified (20 sources)Difficulty sleeping ; Translations: [Sleep disorder, unspecified] EpisodicResidual codes; unclassified (3 sources)Insomnia, unspecifiedOnset: 10-01-2021 Resolved: 61-05-7563AlmcdeoeAgjtwbav codes; unclassified (9 sources)Never smoked any substance; Translations: [Other specified health status]Onset: 922965-97-0529YzkowclqEbwscylr codes; unclassified (2 sources)Other specified health status; Translations: [Other specified health status]Onset: 77-04-5222CsrhvffiFlskzdefwus; intervertebral disc disorders; other back problems (13 sources)Low back pain; Translations: [Lumbar back pain]EpisodicSprains and strains (20 sources)Strain of muscle and/or tendon of lower leg; Translations: [Strain of unspecified muscle and tendonat ankle and foot level, left foot, subsequent encounter]EpisodicThyroid disorders (20 sources)Hypothyroidism; Translations: [Hypothyroidism, unspecified]Onset: 04-26-2021 Resolved: 17-08-5779Epfblid Past or Other Problems Problem ClassificationProblemDateDocumented DateEpisodic/ChronicConditions associated with dizziness or vertigo (2 sources)Dizziness and giddiness; Translations: [Dizziness and giddiness] Onset: 02-14-2022 Resolved: 54-36-9749FvxnmwckXlelv valve disorders (20 sources)Heart murmur; Translations: [Cardiac murmur, unspecified]Onset: 10-01-2021 Resolved: 17-48-4522WebshuqkYfddw acquired deformities (1 source)Spondylolisthesis, lumbar regionOnset: 02-14-2022 Resolved: 45-04-8093LgsletllMthpi bone disease and musculoskeletal deformities (1 source)Other specified disorders of bone density and structure, unspecified siteOnset: 02-14-2022 Resolved: 29-86-9112RlqsjonmVsnfv bone disease and musculoskeletal deformities (1 source)Other specified disorders of bone, shoulderOnset: 02-22-2022 Resolved: 69-47-3054BewptiudTiwhc bone disease and musculoskeletal deformities (1 source)Other specified disorders of bone density and structure, multiple sitesOnset: 02-22-2022 Resolved: 91-04-3908OrirjpgaJzfpf circulatory disease (20 sources)Carotid bruit; Translations: [Other symptoms involving cardiovascular system]Onset: 06-04-2023 Resolved: 493880-73-1723MvcyboioHgtzq circulatory disease (1 source)Other specified symptoms and signs involving the circulatory and respiratory systems; Translations:[Other specified symptoms and signs involving the circulatory and respiratory systems]Onset: 00-44-9336ZiciphocIbyzd liver diseases (1 source)Abnormal levels of other serum enzymes; Translations: [Abnormal levels of other serum enzymes]Onset: 81-29-0598HlwbbwduVkgcp nutritional; endocrine; and metabolic disorders (2 sources)Body mass index (BMI) 26.0-26.9, adult; Translations: [Body mass index (BMI) 26.0-26.9, adult]Onset: 79-98-8523KmoagfivFiwse skin disorders (1 source)Localized swelling, mass and lump, headOnset: 04-26-2021 Resolved: 24-81-8486EoesuoorXqisxcjw codes; unclassified (1 source)Sleep disorder, unspecifiedOnset: 08-02-2021 Resolved: 69-95-3817JazydigjAtxijfbx codes; unclassified (1 source)Asymptomatic menopausal stateOnset: 02-14-2022 Resolved: 09-35-6281NhvouzirGfjctfgkvvga (7 sources)Never smoked tobacco; Translations: [Never smoker]Unclassified (1 source)Cough R05.9Onset: 01-11-2022 Resolved: 03-57-5685Lpmtilgkuwln (3 sources)Lumbar back pain M54.50Onset: 02-14-2022 Resolved: 82-03-6035Hrejvaxgzxpm (1 source)History of COVID-19 Z86.16Onset: 02-14-2022 Resolved: 60-71-8003Wsujmwmvsehh (10 sources)Lumbar back pain; Translations: [Lumbar back pain]Unclassified (1 source)Vaccine counseling Z71.85Unclassified (6 sources)Onset: 06-19-2023 Resolved: Viral infection (20 sources)Disease caused by 2019-nCoV; Translations: [COVID-19]Onset: 01-11-2022 Resolved: 01-11-2022 Results Test NameValueInterpretationReference RangeFacilityTRANSTHORACIC ECHO (TTE) COMPLETEon 77-39-3905DXLRBUGYSPNWC ECHO (TTE) COMPLETENortFormerly [facility] [address], [address], [place] [address] TRANSTHORACIC ECHOCARDIOGRAM REPORT Patient Name: LAVONNE VILLATORO Reading Physician: [id number] Shy Wolf MD, [facility] Study Date: 12/21/2024 Ordering Provider: [id number] SHY WOLF MRN/PID: [id number] Fellow: Nurse: Date of /Age: 3 1935 / years Spinal Surgeon: Sheridan Lemus RDCS, T Gender Assigned at F Additional Staff: : Height: 157.48 cm Admit Date: Weight: 65.77 kg Admission Status: Outpatient BSA / BMI: 1.67 m2 / 26.52 Department Location: [facility] kg/m2 [place] Blood Pressure: 146 /68 mmHg Study Type: TRANSTHORACIC ECHO (TTE) COMPLETE Diagnosis/ICD: Nonrheumatic aortic (valve) stenosis-I35.0 Indication: HTN, Hyperlipidemia, 2/6 Systolic Murmur, Hypothyroid CPT Codes: Echo Complete w Full Doppler-07938 Study Detail: The following Echo studies were [...] AoV Area,Vmax: 0.85 cm (more content not included)...[facility] Transthoracicon 36-25-9138Jjalwk Valve Area by Continuity of Peak Velocity0.85 xu9PgdfiphxvfPremier Health [facility] Work Phone: [phone] Valve Area by Continuity of VTI0.9 cm2 [facility] Work Phone: [phone] mn vpxv89dpMnWclwtmxizzBluffton Hospital Work Phone: [phone] pk zven30tkMyHcfboicebdBluffton Hospital Work Phone: [phone] pk vel3.27 m/[facility] Work Phone: [phone] vol index A/L43.4 ml/r2RxlcmsjbgvBluffton Hospital Work Phone: [phone] A4C EF76.9UnBluffton Hospital Work Phone: [phone] Biplane EF71 %[facility] Work Phone: [phone] EF68 %[facility] Work Phone: [phone] cmUnBluffton Hospital Work Phone: [phone] diam1.89 cmUnBluffton Hospital Work Phone: [phone] avg E/e' ratio15.93UnBluffton Hospital Work Phone: [phone] E/A rvgnm7HqgvheuatwBluffton Hospital Work Phone: [phone] free wall pk S'11.98 cm/[facility] Work Phone: [phone]fton Hospital Work Phone: [phone] annular plane systolic excursion2.4 cm [facility] Work Phone: [address], [address] [place] [address] TRANSTHORACIC ECHOCARDIOGRAM REPORT Patient Name: LAVONNE Bahena Physician: [id number] Shy Wolf MD, [facility] Study Date: 12/21/2024 Ordering Provider: [id number] SHY WOLF MRN/PID: [id number] Fellow: Nurse: Date of /Age: 3 1935 / 89 years Spinal Surgeon: Sheridan Lemus RDCS, RVT Gender Assigned at F Additional Staff: : Height: 157.48 cm Admit Date: Weight: 65.77 kg Admission Status: Outpatient BSA / BMI: 1.67 m2 / 26.52 Department Location: [facility] Heart kg/m2 [place] Blood Pressure: 146 /68 mmHg Study Type: TRANSTHORACIC ECHO (TTE) COMPLETE Diagnosis/ICD: Nonrheumatic aortic (valve) stenosis-I35.0 Indication: HTN, Hyperlipidemia, 2/6 Systolic Murmur, Hypothyroid CPT Codes: Echo Complete w Full Doppler-26560 Study Detail: The following Echo studies were [...] [facility] [address], [address], [place] [address] TRANSTHORACIC ECHOCARDIOGRAM REPORT Patient Name: LAVONNE VILLATORO Reading Physician: [id number] Shy Wolf MD, [facility] Study Date: 12/21/2024 Ordering Provider: [id number] SHY WOLF MRN/PID: [id number] Fellow: Nurse: Date of /Age: 3 1935 / 89 years Spinal Surgeon: Sheridan Lemus RDCS, RVT Gender Assigned at F Additional Staff: : Height: 157.48 cm Admit Date: Weight: 65.77 kg Admission Status: Outpatient BSA / BMI: 1.67 m2 / 26.52 Department Location: [facility] kg/m2 [place] Blood Pressure: 146 /68 mmHg Study Type: TRANSTHORACIC ECHO (TTE) COMPLETE Diagnosis/ICD: Nonrheumatic aortic (valve) stenosis-I35.0 Indication: HTN, Hyperlipidemia, 2/6 Systolic Murmur, Hypothyroid CPT Codes: Echo Complete w Full Doppler-90395 Study Detail: The following Echo studies were [...] cm (18-25cm) LVOT VTI: (more content not included)...[facility] Work Phone: UnBl[facility] Work Phone: Complete Blood Count Auto Diffon 00-65-5697Ombbffowj (Bld) [#/Vol]0.1 10*3/uLNormal0.0-0.2The [facility] Physician GroupComment on above:Performed By: #### [id number], CMP, TSH3, LIPID, CBC, T4F, ESR #### [facility] [address] [place] [address] USABasophils/100 WBC (Bld)1.1 %Normal.The [facility] Physician GroupComment on above:Performed By: #### [id number], CMP, TSH3, LIPID, CBC, T4F, ESR #### [place] [address] USAEosinophils (Bld) [#/Vol]0.1 10*3/uLNormal0.0-0.45The [facility] Physician GroupComment on above:Performed By: #### [id number], CMP, TSH3, LIPID, CBC, T4F, ESR #### [place] [address] USAEosinophils/100 WBC (Bld)2.2 %Normal.The [facility] Physician GroupComment on above:Performed By: #### [id number], CMP, TSH3, LIPID, CBC, T4F, ESR #### [place] [address] USAErythrocyte distribution width (RBC) [Ratio]13.5 %Normal 11.9-15.3The [facility] Physician GroupComment on above:Performed By: #### [id number], CMP, TSH3, LIPID, CBC, T4F, ESR #### [place] [address] USAHematocrit (Bld) [Volume fraction]37.9 %Vlhqqo70.0-46.4The [facility] Physician GroupComment on above:Performed By: #### [id number], CMP, TSH3, LIPID, CBC, T4F, ESR #### [place] [address] USAHemoglobin (Bld) [Mass/Vol]12.9 g/jTGgiuys59.8-15.4The [facility] Physician GroupComment on above:Performed By: #### [id number], CMP, TSH3, LIPID, CBC, T4F, ESR #### [place] [address] USALymphocytes (Bld) [#/Vol]2.2 10*3/uLNormal1.00-4.8The [facility] Physician GroupComment on above:Performed By: #### [id number], CMP, TSH3, LIPID, CBC, T4F, ESR #### [place] [address] USALymphocytes/100 WBC (Bld)34.3 %Normal.The [facility] Physician GroupComment on above:Performed By: #### [id number], CMP, TSH3, LIPID, CBC, T4F, ESR #### [address] (RBC) [Entitic mass]33.5 gmEcjpnq18.7-34.3The [facility] Physician GroupComment on above:Performed By: #### [id number], CMP, TSH3, LIPID, CBC, T4F, ESR #### [address] (RBC) [Entitic vol]98.4 eIBdhmoh67-025Abe [facility] Physician GroupComment on above:Performed By: #### [id number], CMP, TSH3, LIPID, CBC, T4F, ESR #### [place] [address] USAMean Corpuscular HGB Conc34.1 g/dSEvnveg82.0-35.0The [facility] Physician GroupComment on above:Performed By: #### [id number], CMP, TSH3, LIPID, CBC, T4F, ESR #### [place] [address] USAMonocytes (Bld) [#/Vol]0.6 10*3/uLNormal0.0-0.8The [facility] Physician GroupComment on above:Performed By: #### [id number], CMP, TSH3, LIPID, CBC, T4F, ESR #### [place] [address] USAMonocytes/100 WBC (Bld)9.8 %Normal.The [facility] Physician GroupComment on above:Performed By: #### [id number], CMP, TSH3, LIPID, CBC, T4F, ESR #### [facility] [address] [place] [address] USANeutrophils (Bld) [#/Vol]3.4 10*3/uLNormal1.8-7.7The [facility] Physician GroupComment on above:Performed By: #### [id number], CMP, TSH3, LIPID, CBC, T4F, ESR #### [place] [address] USANeutrophils/100 WBC (Bld)52.6 %Normal.The [facility] Physician GroupComment on above:Performed By: #### [id number], CMP, TSH3, LIPID, CBC, T4F, ESR #### [place] [address] USANRBC%0.3 /100{WBC}Normal0-0.5The [facility] Comment on above:Performed By: #### [id number], CMP, TSH3, LIPID, CBC, T4F, ESR #### [place] [address] USAPlatelet mean volume (Bld) [Entitic vol]9.3 fLNormal 6.3-10.7The [facility] Physician GroupComment on above:Performed By: #### [id number], CMP, TSH3, LIPID, CBC, T4F, ESR #### [place] [address] USAPlatelets (Bld) [#/Vol]208 10*3/qRWccicq369-212Niv [facility] Physician GroupComment on above:Performed By: #### [id number], CMP, TSH3, LIPID, CBC, T4F, ESR #### [place] [address] USARBC (Bld) [#/Vol]3.85 10*6/uLNormal3.60-5.00The [facility] Physician GroupComment on above:Performed By: #### [id number], CMP, TSH3, LIPID, CBC, T4F, ESR #### [place] [id number] USAWBC (Bld) [#/Vol]6.6 10*3/uLNormal3.8-11.6The [facility] Physician GroupComment on above:Performed By: #### [id number], CMP, TSH3, LIPID, CBC, T4F, ESR #### [place] [address] USAComprehensive Metabolic Panelon 71-62-9423Pdmdcqr [Mass/Vol]3.7 g/dLNormal3.5-5.7The [facility] Physician GroupComment on above: Performed By: #### [id number], CMP, TSH3, LIPID, CBC, T4F, ESR #### [place] [address] USAAlbumin/Globulin [Mass ratio]1.9 {ratio}NormalThe [facility] Physician GroupComment on above:Performed By: #### [id number], CMP, TSH3, LIPID, CBC, T4F, ESR #### [place] [address] USAALP [Catalytic activity/Vol]62 U/CDrakrq94-806Axz [facility] Physician GroupComment on above:Performed By: #### [id number], CMP, TSH3, LIPID, CBC, T4F, ESR #### [place] [address] USAALT [Catalytic activity/Vol]21 U/LNormal7-52The [facility] Physician GroupComment on above:Performed By: #### [id number], CMP, TSH3, LIPID, CBC, T4F, ESR #### [place] [address] USAAnion gap [Moles/Vol]8.2 mmol/LNormal6.0-15.0The [facility] Physician GroupComment on above:Performed By: #### [id number], CMP, TSH3, LIPID, CBC, T4F, ESR #### [place] [address] USAAST [Catalytic activity/Vol]19 U/YRhtfop03-90Tds [facility] Physician GroupComment on above:Performed By: #### [id number], CMP, TSH3, LIPID, CBC, T4F, ESR #### [place] [address] USABilirubin [Mass/Vol]0.7 mg/dLNormal0.3-1.0The [facility] Physician GroupComment on above:Performed By: #### [id number], CMP, TSH3, LIPID, CBC, T4F, ESR #### [place] [address] USACalcium [Mass/Vol]9.7 mg/dLNormal8.6-10.3The [facility] Physician GroupComment on above:Performed By: #### [id number], CMP, TSH3, LIPID, CBC, T4F, ESR #### [place] [address] USAChloride [Moles/Vol]107 mmol/YWnjyah18-956Iyc [facility] Physician GroupComment on above:Performed By: #### [id number], CMP, TSH3, LIPID, CBC, T4F, ESR #### [place] [address] USACO2 [Moles/Vol]31.5 mmol/LHigh21.0-31.0The [facility] Physician GroupComment on above:Performed By: #### [id number], CMP, TSH3, LIPID, CBC, T4F, ESR #### [place] [address] USACreatinine [Mass/Vol]0.67 mg/dLNormal0.60-1.20The [facility] Physician GroupComment on above:Performed By: #### [id number], CMP, TSH3, LIPID, CBC, T4F, ESR #### [place] [address] USAGFR/1.73 sq M.predicted MDRD (S/P/Bld) [Vol rate/Area] mL/min/{1.73_m2}NormalThe [facility] Physician GroupComment on above:Performed By: #### [id number], CMP, TSH3, LIPID, CBC, T4F, ESR #### [place] [address] USAGlobulin (S) [Mass/Vol]1.9 g/dLNormalThe [facility] Physician GroupComment on above:Performed By: #### [id number], CMP, TSH3, LIPID, CBC, T4F, ESR #### [place] [address] USAGlucose [Mass/Vol]89 mg/aZWfuwel87-518Yfk [facility] Physician GroupComment on above:Result Comment: Random Glucose Reference Range is dependent on time and content of last meal. Glucose of more than 200 mg/dL in a nonstressed, ambulatory subject supports the diagnosis of Diabetes Mellitus. ADA recommended reference rangePerformed By: #### [id number], CMP, TSH3, LIPID, CBC, T4F, ESR #### [place] [address] USAPotassium [Moles/Vol]3.7 mmol/LNormal3.5-5.1The [facility] Physician GroupComment on above:Performed By: #### [id number], CMP, TSH3, LIPID, CBC, T4F, ESR #### [place] [address] USAProtein [Mass/Vol]5.6 g/dLLow6.4-8.9The [facility] Physician GroupComment on above:Performed By: #### [id number], CMP, TSH3, LIPID, CBC, T4F, ESR #### [place] [address] USASodium [Moles/Vol]143 mmol/IUnfdiq861-401Aeu [facility] Physician GroupComment on above:Performed By: #### [id number], CMP, TSH3, LIPID, CBC, T4F, ESR #### [place] [address] USAUrea nitrogen [Mass/Vol]19 mg/dLNormal7-25The [facility] Physician GroupComment on above:Performed By: #### [id number], CMP, TSH3, LIPID, CBC, T4F, ESR #### [facility] [address] [place] [id number] USAErythrocyte Sedimentation Rateon 04-25-3201GXX (Bld) [Velocity]9 mm/hNormal0-29The [facility] Physician GroupComment on above:Result Comment: PERFORMED BY: [place] [address] PATHOLOGIST CERTIFIED NEURODIAGNOSTIC TECHNOLOGIST JASIEL HURTADO M.D.Performed By: #### [id number], CMP, TSH3, LIPID, CBC, T4F, ESR #### [place] [address] USAFree T4 (Free Thyroxine)on 95-01-8820Ugbh T4 [Mass/Vol] 0.74 ng/dLNormal0.61-1.12The [facility] Physician GroupComment on above:Performed By: #### LIPID, TSH3, CMP, CBC #### [place] [address] USALipid Panelon 50-71-4988Pknciieugpr [Mass/Vol]228 mg/dL Pypy326-160Lug [facility] Physician GroupComment on above:Result Comment: Chol less than 200 mg/dl low risk Chol 201-239 mg/dl borderline risk Chol 240 mg/dl and greater high riskPerformed By: #### [id number], CMP, TSH3, LIPID, CBC, T4F, ESR #### [place] [id number] USACholesterol in HDL [Mass/Vol]96 mg/bWYpmk99-02Wke [facility] Physician GroupComment on above:Result Comment: HDL CHOL ATP-III CLASSIFICATION Cardiovascular Risk HDL > or equal to 60 mg/dL LOW HDL < 40 mg/dL HIGHPerformed By: #### [id number], CMP, TSH3, LIPID, CBC, T4F, ESR #### [place] [id number] USACholesterol.total/Cholesterol in HDL [Mass ratio]2.4 {ratio}Normal<5.0The [facility] Physician GroupComment on above:Performed By: #### [id number], CMP, TSH3, LIPID, CBC, T4F, ESR #### [facility] [address] [place] [address] USALDL Cholesterol,Xxshuzsgre334 mg/dLHigh0-100The [facility] Physician GroupComment on above:Result Comment: LDL ATP III CLASSIFICATION LDL less than 100 mg/dL Optimal LDL 100-129 mg/dL Near or above optimal LDL 130-159 mg/dL Borderline high LDL 160-189 mg/dL High LDL greater than 189 mg/dL Very highPerformed By: #### [id number], CMP, TSH3, LIPID, CBC, T4F, ESR #### [facility] [address] [place] [address] USATriglyceride w/Mstglv66 mg/dLNormal0-149The [facility] Physician GroupComment on above:Result Comment: TRIG ATP III CLASSIFICATION TRIG less than 150 mg/dL Normal TRIG 150-199 mg/dL Borderline high TRIG 200-500 mg/dL High TRIG greater than 500 mg/dL Very high Standard traceable to the Center for Disease Conrtrol and Prevention (CDC) test method.Performed By: #### [id number], CMP, TSH3, LIPID, CBC, T4F, ESR #### [facility] [address] [place] [address] USAVLDL SFJYJIEIAZB81 mg/dLNormalThe [facility] Physician GroupComment on above:Performed By: #### [id number], CMP, TSH3, LIPID, CBC, T4F, ESR #### [facility] [address] [place] [address] USAThyroid Stimulating Hormoneon 74-00-4048KKP Qn6.38 m[IU]/L High0.45-5.33The [facility] Physician GroupComment on above:Performed By: #### LIPID, TSH3, CMP, CBC #### [facility] [address] [place] [address] USAVitamin D 25 Hydroxy Totalon 05-91-4548Lfifvrc D 25 Hydroxy Total28.4 ng/xWWzo62-866Jni [facility] Physician GroupComment on above: Result Comment: VITAMIN D STATUS 25(OH)VITAMIN D RANGE (ng/mL) Deficient <20 Insufficient 20 to <30 Sufficient 30 to 100 Reference: Yolanda ARIAS,Nathan NC, Keshawn FRANCO, et al. Evaluation,treatment, and prevention of vitamin D deficiency; an Endocrine Society clinical practice guideline. JCEM. 2010; 96(7):1911-30. PERFORMED BY: [place] [address] PATHOLOGIST CERTIFIED NEURODIAGNOSTIC TECHNOLOGIST JASIEL HURTADO M.D.Performed By: #### LIPID, TSH3, CMP, CBC #### [place] [address] USAXR scapula LT*on 26-34-4341FF scapula LT*[facility] [address] [place] [address] [place] [address] XRay Report Signed Patient: Lavonne Villatoro MR#: [id number] : 1935 Acct:[id number] Age/Sex: 88 / F ADM Date: 05/25/24 Loc: Room: Type: [facility] Attending Dr: Suhas Garrett DO Copies to: Suhas Garrett DO Ordering Provider: Suhas Garrett DO Date of Service: 05/25/24 XR/XR shoulder LT min 2V*: M25.519 - Pain in unspecified shoulder ([id number]) XR/XR scapula LT*: M25.519 - Pain in [...] Casandra Gómez M.D.05/25/2024 4:45 PM Dictation Location: [place] [address] Transcribed By: [facility] 05/25/241644 Dictated By: Casandra Gómez MD 05/25/241641 Signed By: 05/25/24 1645[facility] Physician GroupTRANSTHORACIC ECHO (TTE) COMPLETEon 45-69-4863RSPRSUFOFZBJF ECHO (TTE) COMPLETENo[address], [address] [place] [address] TRANSTHORACIC ECHOCARDIOGRAM REPORT Patient Name: LAVONNE VILLATORO Reading Physician: [id number] Shy Wolf MD, [facility] Study Date: 02/11/2024 Ordering Provider: [id number] SHY WOLF MRN/PID: [id number] Fellow: Nurse: Date of /Age: 3 1935 / 88 years Spinal Surgeon: LILIA Gender: F Additional Staff: Height: 157.48 cm Admit Date: Weight: 69.40 kg Admission Status: BSA / BMI: 1.71 m2 / 27.98 kg/m2 Department Location: [facility] Blood Pressure: 116 /76 mmHg Study Type: TRANSTHORACIC ECHO (TTE) COMPLETE Diagnosis/ICD: Nonrheumatic aortic (valve) stenosis-I35.0 Indication: HTN, Hyperlipidemia, 3/6 Systolic Murmur, Hypothryoid, Overweight CPT Codes: Echo Complete w Full Doppler-52020 Study Detail: The following Echo studies were [...] mmHg PIEDV: 2.23 m/s PADP: 22.9 mmHg [id number] Shy Wolf MD, FACC Electronical (more content not included)...[facility] BIon 47-79-4551DI carotid doppler [facility] [address] [place] [address] [place] [address] Ultrasound Report Signed Patient: Lavonne Villatoro MR#: [id number] : 1935 Acct:[id number] Age/Sex: 88 / F ADM Date: 10/14/23 Loc: Room: Type: [facility] Attending Dr: Suhas Garrett DO Ordering [...] M.D.10/15/2023 11:47 AM Dictation Location: [place] [address] Tech: Jackie Aguillon Transcribed By: KIRILL 10/15/23 1147 Dictated By: Hola Wynn MD 10/15/23 1145 Signed By: 10/15/23 1147[facility] Physician [facility] HospitalComplete Blood Count Auto Diffon 06-04-1699Xooylifgj (Bld) [#/Vol]0.0 10*3/uLNormal0.0-0.2The [facility] Physician GroupComment on above:Result Comment: PERFORMED BY: [place] [address] PATHOLOGIST CERTIFIED NEURODIAGNOSTIC TECHNOLOGIST JODY SOLANO M.D.Performed By: #### LIPID, TSH3, CMP, CBC #### [place] [address] USABasophils/100 WBC (Bld)0.7 %Normal.The [facility] Physician GroupComment on above:Performed By: #### LIPID, TSH3, CMP, CBC #### [place] [address] USAEosinophils (Bld) [#/Vol]0.1 10*3/uLNormal0.0-0.45The [facility] Physician GroupComment on above:Performed By: #### LIPID, TSH3, CMP, CBC #### [place] [address] USAEosinophils/100 WBC (Bld)1.6 %Normal.The [facility] Physician GroupComment on above:Performed By: #### LIPID, TSH3, CMP, CBC #### [place] [address] USAErythrocyte distribution width (RBC) [Ratio]14.8 %Normal 11.9-15.3The [facility] Physician GroupComment on above:Performed By: #### LIPID, TSH3, CMP, CBC #### [place] [address] USAHematocrit (Bld) [Volume fraction]39.9 %Uebvdc26.0-46.4The [facility] Physician GroupComment on above:Performed By: #### LIPID, TSH3, CMP, CBC #### [place] [address] USAHemoglobin (Bld) [Mass/Vol]13.2 g/aVVhsffy55.8-15.4The [facility] Physician GroupComment on above:Performed By: #### LIPID, TSH3, CMP, CBC #### [place] [address] USALymphocytes (Bld) [#/Vol]2.6 10*3/uLNormal1.00-4.8The [facility] Physician GroupComment on above:Performed By: #### LIPID, TSH3, CMP, CBC #### [place] [address] USALymphocytes/100 WBC (Bld)43.5 %Normal.The [facility] Physician GroupComment on above:Performed By: #### LIPID, TSH3, CMP, CBC #### [place] [address] USAMCH (RBC) [Entitic mass]33.2 sfPkbeur95.7-34.3The [facility] Physician GroupComment on above:Performed By: #### LIPID, TSH3, CMP, CBC #### [place] [address] USAV (RBC) [Entitic vol]100.5 eIHwxa23-381Nxg [facility] Physician GroupComment on above:Performed By: #### LIPID, TSH3, CMP, CBC #### [place] [address] USAMean Corpuscular HGB Conc33.0 g/rDYlirfx28.0-35.0The [facility] Physician GroupComment on above:Performed By: #### LIPID, TSH3, CMP, CBC #### [place] [address] USAMonocytes (Bld) [#/Vol]0.6 10*3/uLNormal0.0-0.8The [facility] Physician GroupComment on above:Performed By: #### LIPID, TSH3, CMP, CBC #### [place] [address] USAMonocytes/100 WBC (Bld)9.7 %Normal.The [facility] Physician GroupComment on above:Performed By: #### LIPID, TSH3, CMP, CBC #### [place] [address] USANeutrophils (Bld) [#/Vol]2.7 10*3/uLNormal1.8-7.7The [facility] Physician GroupComment on above:Performed By: #### LIPID, TSH3, CMP, CBC #### [place] [address] USANeutrophils/100 WBC (Bld)44.5 %Normal.The [facility] Physician GroupComment on above:Performed By: #### LIPID, TSH3, CMP, CBC #### [place] [address] USANRBC%0.2 /100{WBC}Normal0-0.5The [facility] Comment on above:Performed By: #### LIPID, TSH3, CMP, CBC #### [place] [address] USAPlatelet mean volume (Bld) [Entitic vol]9.2 fLNormal 6.3-10.7The [facility] Physician GroupComment on above:Performed By: #### LIPID, TSH3, CMP, CBC #### [place] [address] USAPlatelets (Bld) [#/Vol]229 10*3/kGAmmrwu383-481Aem [facility] Physician GroupComment on above:Performed By: #### LIPID, TSH3, CMP, CBC #### [place] [address] USARBC (Bld) [#/Vol]3.98 10*6/uLNormal3.60-5.00The [facility] Physician GroupComment on above:Performed By: #### LIPID, TSH3, CMP, CBC #### [facility] [address] [place] [address] USAWBC (Bld) [#/Vol]6.0 10*3/uLNormal3.8-11.6The [facility] Physician GroupComment on above:Performed By: #### LIPID, TSH3, CMP, CBC #### [place] [address] USAComprehensive Metabolic Panelon 46-88-8546Yywjfow [Mass/Vol]3.8 g/dLNormal3.5-5.7The [facility] Physician GroupComment on above: Performed By: #### LIPID, TSH3, CMP, CBC #### [place] [address] USAAlbumin/Globulin [Mass ratio]1.7 {ratio}NormalThe [facility] Physician GroupComment on above:Performed By: #### LIPID, TSH3, CMP, CBC #### [place] [address] USAALP [Catalytic activity/Vol]72 U/WQsuzww87-568Omn [facility] Physician GroupComment on above:Performed By: #### LIPID, TSH3, CMP, CBC #### [place] [address] USAALT [Catalytic activity/Vol]43 U/LNormal7-52The [facility] Physician GroupComment on above:Performed By: #### LIPID, TSH3, CMP, CBC #### [place] [address] USAAnion gap [Moles/Vol]8.9 mmol/LNormal6.0-15.0The [facility] Physician GroupComment on above:Performed By: #### LIPID, TSH3, CMP, CBC #### [place] [address] USAAST [Catalytic activity/Vol]23 U/YNegunl84-23Rqy [facility] Physician GroupComment on above:Performed By: #### LIPID, TSH3, CMP, CBC #### [place] [address] USABilirubin [Mass/Vol]1.2 mg/dLHigh0.3-1.0The [facility] Physician GroupComment on above:Performed By: #### LIPID, TSH3, CMP, CBC #### [place] [address] USACalcium [Mass/Vol]9.5 mg/dLNormal8.6-10.3The [facility] Physician GroupComment on above:Performed By: #### LIPID, TSH3, CMP, CBC #### [facility] [address] [place] [address] USAChloride [Moles/Vol]107 mmol/AFcybei86-043Abp [facility] Physician GroupComment on above:Performed By: #### LIPID, TSH3, CMP, CBC #### [place] [address] USACO2 [Moles/Vol]30.0 mmol/LWbjwjo34.0-31.0The [facility] Physician GroupComment on above:Performed By: #### LIPID, TSH3, CMP, CBC #### [place] [address] USACreatinine [Mass/Vol]0.76 mg/dLNormal0.60-1.20The [facility] Physician GroupComment on above:Performed By: #### LIPID, TSH3, CMP, CBC #### [place] [address] USAGFR/1.73 sq M.predicted MDRD (S/P/Bld) [Vol rate/Area] mL/min/{1.73_m2}NormalThe [facility] Physician GroupComment on above:Performed By: #### LIPID, TSH3, CMP, CBC #### [place] [address] USAGlobulin (S) [Mass/Vol]2.2 g/dLNormalThe [facility] Physician GroupComment on above:Performed By: #### LIPID, TSH3, CMP, CBC #### [place] [address] USAGlucose [Mass/Vol]79 mg/jVZfcleg98-868Qcr [facility] Physician GroupComment on above:Result Comment: Random Glucose Reference Range is dependent on time and content of last meal. Glucose of more than 200 mg/dL in a nonstressed, ambulatory subject supports the diagnosis of Diabetes Mellitus. ADA recommended reference rangePerformed By: #### LIPID, TSH3, CMP, CBC #### [facility] [address] [place] [address] USAPotassium [Moles/Vol]3.9 mmol/LNormal3.5-5.1The [facility] Physician GroupComment on above:Performed By: #### LIPID, TSH3, CMP, CBC #### [facility] [address] [place] [address] USAProtein [Mass/Vol]6.0 g/dLLow6.4-8.9The [facility] Physician GroupComment on above:Performed By: #### LIPID, TSH3, CMP, CBC #### [facility] [address] [place] [address] USASodium [Moles/Vol]142 mmol/XXrdnqb580-456Nbp [facility] Physician GroupComment on above:Performed By: #### LIPID, TSH3, CMP, CBC #### [facility] [address] [place] [address] USAUrea nitrogen [Mass/Vol]22 mg/dLNormal7-25The [facility] Physician GroupComment on above:Performed By: #### LIPID, TSH3, CMP, CBC #### [place] [address] USALipid Panelon 28-00-5377Kinvgxemobw [Mass/Vol]243 mg/dL Adqa736-930Bob [facility] Physician GroupComment on above:Result Comment: Chol less than 200 mg/dl low risk Chol 201-239 mg/dl borderline risk Chol 240 mg/dl and greater high riskPerformed By: #### LIPID, TSH3, CMP, CBC #### [place] [address] USACholesterol in HDL [Mass/Vol]98 mg/uYGnlu00-57Iyz [facility] Physician GroupComment on above:Result Comment: HDL CHOL ATP-III CLASSIFICATION Cardiovascular Risk HDL > or equal to 60 mg/dL LOW HDL < 40 mg/dL HIGHPerformed By: #### LIPID, TSH3, CMP, CBC #### [facility] [address] [place] [id number] USACholesterol.total/Cholesterol in HDL [Mass ratio]2.5 {ratio}Normal<5.0The [facility] Physician GroupComment on above:Performed By: #### LIPID, TSH3, CMP, CBC #### [facility] [address] [place] [address] USALDL Cholesterol,Dfdthzxgiy667 mg/dLHigh0-100The [facility] Physician GroupComment on above:Result Comment: LDL ATP III CLASSIFICATION LDL less than 100 mg/dL Optimal LDL 100-129 mg/dL Near or above optimal LDL 130-159 mg/dL Borderline high LDL 160-189 mg/dL High LDL greater than 189 mg/dL Very highPerformed By: #### LIPID, TSH3, CMP, CBC #### [place] [address] USATriglyceride w/Dhhzjp746 mg/dLNormal0-149The [facility] Physician GroupComment on above:Result Comment: TRIG ATP III CLASSIFICATION TRIG less than 150 mg/dL Normal TRIG 150-199 mg/dL Borderline high TRIG 200-500 mg/dL High TRIG greater than 500 mg/dL Very high Standard traceable to the Center for Disease Conrtrol and Prevention (CDC) test method.Performed By: #### LIPID, TSH3, CMP, CBC #### [place] [address] USAVLDL ZBXHIJHBTFU79 mg/dLNormalThe [facility] Physician GroupComment on above:Performed By: #### LIPID, TSH3, CMP, CBC #### [place] [id number] USAThyroid Stimulating Hormoneon 61-86-8823QTA Qn4.01 m[IU]/L Normal0.45-5.33The [facility] Physician GroupComment on above:Result Comment: PERFORMED BY: [place] [address] PATHOLOGIST CERTIFIED NEURODIAGNOSTIC TECHNOLOGIST JODY SOLANO M.D.Performed By: #### LIPID, TSH3, CMP, CBC #### [facility] [address] [place] [address] USAComplete Blood Count Auto Diffon 14-32-4989Wukkxjinq (Bld) [#/Vol]0.280462933 10*3/uLNormal0.0-0.2 10*3/[employer] Other Basophils/100 WBC (Bld)0.900 %. %[employer] Other Eosinophils (Bld) [#/Vol]0.377234470 10*3/uLNormal0.0- 0.45 10*3/[employer] Other Eosinophils/100 WBC (Bld)1.100 %. %[employer] Other Erythrocyte distribution width (RBC) [Ratio]14.000 % Vifegu28.9-15.3 %[employer] Other Hematocrit (Bld) [Volume fraction]37.700 %Cpoosz71.0- 46.4 %[employer] Other Hemoglobin (Bld) [Mass/Vol]12.759349 g/pRNuoydu89.8- 15.4 g/dLNoSIRION [employer] Other Lymphocytes (Bld) [#/Vol]2.912306108 10*3/uLNormal 1.00-4.8 10*3/[employer] Other Lymphocytes/100 WBC (Bld)35.100 %. %[facility] Other MCH (RBC) [Entitic mass]33.3000 xuOcultn18.7-34.3 pg [employer] Other MCV (RBC) [Entitic vol]99.7000 pRVewrxm33-509 fLGigPark Other Monocytes (Bld) [#/Vol]0.025126963 10*3/uLNormal0.0- 0.8 10*3/[employer] Other Monocytes/100 WBC (Bld)10.000 %. %[employer] Other Neutrophils (Bld) [#/Vol]3.528016950 10*3/uLNormal1.8- 7.7 10*3/[employer] Other Neutrophils/100 WBC (Bld)52.900 %. %[employer] Other Platelet mean volume (Bld) [Entitic vol]9.9000 fL Normal6.3-10.7 [place]LR[place] HASH Other Platelets (Bld) [#/Vol]224 10*3/vEFilnfb541-166 10*3/[employer] Other RBC (Bld) [#/Vol]3.78 10*6/uLNormal3.60-5.00[place] [facility] Other WBC (Bld) [#/Vol]7.574921085 10*3/uLNormal3.8-11.6 10*3/[employer] Other Complete Blood Count Auto Diff7.1 10*3/uLNormal3.8- 11.6 10*3/[employer] Other Complete Blood Count Auto Diff33.4 g/sXNhmumd03.0-35.0 g/dLGigPark Other Complete Blood Count Auto Diff0.1 /100{WBC}Normal0-0.5 /100{WBC}[employer] Other Comprehensive Metabolic Panelon 17-59-8186Rsppkci [Mass/Vol]3.820496 g/dLNormal3.5-5.7 g/dLNoThe Editorialist HASH Other Albumin/Globulin [Mass ratio]1.7 {ratio}[employer] Other ALP [Catalytic activity/Vol]140 U/PHnbm41-132 U/[employer] Other ALT [Catalytic activity/Vol]71 U/LHigh7-52 U/[employer] Other AST [Catalytic activity/Vol]20 U/LKdpnlg48-77 U/[employer] Other Bilirubin [Mass/Vol]0.5443518 mg/dLNormal0.3-1.0 mg/dL [employer] Other Calcium [Mass/Vol]9.5783132 mg/dLNormal8.6-10.3 mg/dL [employer] Other Chloride [Moles/Vol]107 mmol/XVuqkmi65-083 mmol/[employer] Other CO2 [Moles/Vol]30.07221735 mmol/OBbiceh14.0-31.0 mmol/[employer] Other Creatinine [Mass/Vol]0.83334063 mg/dLNormal0.60-1.20 mg/dLNoSIRION [employer] Other GFR/1.73 sq M.predicted MDRD (S/P/Bld) [Vol rate/Area] mL/min/{1.73_m2}[facility] Other Glucose [Mass/Vol]89 mg/xULzlqke91-924 mg/dLG[facility] Other Potassium [Moles/Vol]3.53023797 mmol/LNormal3.5-5.1 mmol/[facility] Other Protein [Mass/Vol]6.156288 g/dLLow6.4-8.9 g/dLRock [place] [facility] Other Sodium [Moles/Vol]143 mmol/WMbziei536-733 mmol/LNi[facility] Other Urea nitrogen [Mass/Vol]21 mg/dLNormal7-25 mg/dLR[place] HASH Other Comprehensive Metabolic Panel2.2 g/dLNoshriners hospitals for children HASH Other Free T4 (Free Thyroxine)on 64-17-4302Mbtc T4 [Mass/Vol]1.43077735 ng/dLHigh0.61-1.12 ng/dLRock [place] [facility]ASH Other Thyroid Antibodies TPO+Tg Abon 50-32-9900Qadlfaw Antibodies TPO+Tg Rx225-99Frbom HASH Other Thyroid Antibodies TPO+Tg Ab<1.00.0-0.9[place] [facility] Other Thyroid Stimulating Hormoneon 69-76-7124AHS Qn 2.03557091420 m[IU]/LNormal0.45-5.33 u[iU]/mLNGlobal [employer] Other Echocardiogramon 66-20-5032FbqufizrgfxpvgytKlsscDarren Ville [address] TRANSTHORACIC ECHOCARDIOGRAM REPORT Patient Name: LAVONNE Bahena Physician: [id number] Shy Wolf [facility] Date: 02/26/2023 Referring SHY WOLF Physician: MRN/PID: [id number] PCP: Suhas Garrett MD Accession/Order#: [id number] [facility] Location: Date of : 1935 Fellow: Gender: F Nurse: Admit Date: Spinal Surgeon: Sheridan Escalantez RDCS, RVT Height: 157.48 cm CC Report to: Weight: 67.13 kg Study Type: Echocardiogram BSA: 1.68 m2 Blood Pressure: 122 /76 mmHg Diagnosis/ICD: I35.0-Nonrheumatic aortic (valve) stenosis; R01.1-Cardiac murmur, unspecified Indication: HTN, Hyperlipidemia, Overweight, Hypothyroid, Polymyalgia Rheumatica Procedure/CPT: Echo Complete w Full Doppler-01191 Study Detail: The following Echo studies were [...] velocity across the aortic valve has increased xwsu865 cm/s up to 374 cm/s and aortic [...] mmHg PIEDV: 2.50 m/s PADP: 28.0 mmHg [id number] Shy Wolf MD, FACC Electronically signed on 03/01/2023 at 2:16:46 PM Final NormalHighlands Behavioral Health SystemOffice Visit (Cardiology)on 20-76-0431Wmmkzl-up visitDiagnoses/Problems Assessed Aortic stenosis (424.1) (I35.0) Murmur, cardiac (785.2) (R01.1) Essential hypertension (401.9) (I10) Hyperlipidemia (272.4) (E78.5) Overweight with body mass index (BMI) of 27 to 27.9 in adult (278.02,V85.23) (E66.3,Z68.27) Never smoker Hypothyroidism (244.9) (E03.9) PMR (polymyalgia rheumatica) (725) (M35.3) Orders Aortic stenosis, Murmur, cardiac Echocardiogram; Status:Hold For - Scheduling,Retrospective Authorization; Requested for:29Kfn0661; Essential hypertension, Hyperlipidemia Changed: From Aspirin EC 81 MG TBEC TAKE 1 TABLET To Aspirin 81 MG Oral Tablet Delayed Release TAKE 1 TABLET DAILY Overweight with body mass index (BMI) of 27 to 27.9 in adult Healthy Weight Tips; Status:Complete - Retrospective Authorization; Done: [id number] Some eating tips that can help you lose weight.; Status:Complete - Retrospective Authorization; Done: 27Par8297 SocHx: Never smoker Tobacco Use Screening; Status:Complete; Done: 18Klo9112 Patient Instructions Please bring all medicines, vitamins, [...] is being tapered gradually Shy Wolf MD, [facility] Past Medical History Problems History of Carotid [...] Multi Vitamin Oral TabletTAKE 1 TABLET DAILY. [place]-3 Fish Oil 1000 MG Oral CapsuleTAKE 1 [...] negative for complaint. Vitals Vital Signs Recorded: 79Ecz8179 11:32AM Heart Rate68, R Radial Byuywfax226, RUE, Sitting Ykhikeyvx74, RUE, Sitting Height5 ft 2 in Yjxrda608 lb BMI Wnhibhuvnf06.07 kg/m2 BSA Calculated1.68 Tobacco Useb) No PHQ-2 [...] included)...NormalUH TouchworksTobacco Screening.on 12-24-2022 Adult depression screening assessmentNoSwed[facility] 250 DO Work Phone: Fall risk assessmenta) No falls within the last year [facility] 250 DO Work Phone: Tobacco use status CPHSb) NoMP[facility] 250 DO Work Phone: Complete Blood Count Auto Diffon 42-50-1913Cjswmfpsw (Bld) [#/Vol]0.082137808 10*3/uLNormal0.0-0.2 10*3/[employer] Other Basophils/100 WBC (Bld)0.700 %. %[employer] Other Eosinophils (Bld) [#/Vol]0.299598447 10*3/uLNormal0.0- 0.45 10*3/[employer] Other Eosinophils/100 WBC (Bld)0.700 %. %[employer] Other Erythrocyte distribution width (RBC) [Ratio]13.500 % Icbwxv12.9-15.3 %[employer] Other Hematocrit (Bld) [Volume fraction]38.400 %Garvyj70.0- 46.4 %[employer] Other Hemoglobin (Bld) [Mass/Vol]12.996860 g/lFQmfxbz35.8- 15.4 g/dLNoThe Editorialist [employer] Other Lymphocytes (Bld) [#/Vol]0.740522142 10*3/uLLow1.00- 4.8 10*3/[employer] Other Lymphocytes/100 WBC (Bld)12.600 %. %[employer] Other MCH (RBC) [Entitic mass]33.7000 qbLvznuc30.7-34.3 pg [employer] Other MCV (RBC) [Entitic vol]100.4000 wZObap85-951 fLThe Editorialist [employer] Other Monocytes (Bld) [#/Vol]0.872426536 10*3/uLNormal0.0- 0.8 10*3/[employer] Other Monocytes/100 WBC (Bld)6.800 %. %[employer] Other Neutrophils (Bld) [#/Vol]5.018207827 10*3/uLNormal1.8- 7.7 10*3/[employer] Other Neutrophils/100 WBC (Bld)79.200 %. %[employer] Other Platelet mean volume (Bld) [Entitic vol]9.4000 fL Normal6.3-10.7 [facility] Hospital[facility] Other Platelets (Bld) [#/Vol]223 10*3/cNXsukhm988-069 10*3/[employer] Other RBC (Bld) [#/Vol]3.3373002859 10*6/uLNormal3.60-5.00 10*6/[employer] Other WBC (Bld) [#/Vol]6.005318235 10*3/uLNormal3.8-11.6 10*3/[employer] Other Complete Blood Count Auto Diff6.6 10*3/uLNormal4.5- 11.0 10*3/[employer] Other Complete Blood Count Auto Diff33.6 g/cUWejcpp52.0-35.0 g/dLGigPark Other Complete Blood Count Auto Diff0.1 %Normal0-0.5 %[employer] Other Erythrocyte Sedimentation Rateon 60-81-1666HYF (Bld) [Velocity]28 mm/hNormal0-29[place] [facility] Other VASC LAB Carotid Artery Duplex Ultrasoundon 02-21-2022 US.doppler Carotid arteriesSwedish Medical Center [facility]s [facility] [address]A [place] Work Phone: COVID Quick Testingon 35-56-3931EhemzqRujgpykpQywqp HASH Other Falls Screening (Age 18+)on 31-07-0685Knbh risk assessmenta) No falls within the last yearSwed[facility] 250 DO Work Phone: Office Visit (Cardiology)on 85-80-6493Jaagdk-up visit Diagnoses/Problems Assessed Essential hypertension (401.9) (I10) [...] Multi Vitamin Oral TabletTAKE 1 TABLET DAILY. [place] 3 500 CAPSTAKE 1 CAPSULE Daily predniSONE 5 MG Oral Zutpsz9YR 7.5MG BY MOUTH ONE DAILY ALTERNATING EVERY OTHER DAY Allergies Medication amoxicillin Hives;; Recorded By: Kayla Orr; 10/17/2021 10:50:34 AM Dilantin CAPS Rash; Recorded By: Kayla Orr; 10/17/2021 10:50:34 AM Fosamax eye pain; Recorded By: Kayla Orr; 10/17/2021 10:50:34 AM Depakote ER TB24 Recorded By: Kayla Orr; 10/17/2021 10:50:34 AM Vitals Vital Signs Recorded: 26Dec2021 11:04AMRecorded: 26Dec2021 11:00AM Heart Rate56, R Zaedhg33, R Radial Hlfnnqdl179, LUE, Xlefljd452, RUE Bkbopxill10, LUE, Bbzgfcm07, RUE Height5 ft 2 in5 ft 2 in Dduapy384 lb 143 lb BMI Unuhhvhbud00.16 kg/m226.16 kg/m2 BSA Calculated1.661.66 Falls Screening (Age 18+)a) No falls within the last year Signatures Electronically signed by : Shy Wolf MD; Dec 26 2021 4:02PM EST (Author) [facility] TouchworksTobacco Screening.on 00-07-0479Vgwsu depression screening assessmentNoDiley [facility] Medical Center Work Phone: Fall risk assessmenta) No falls within the last year [facility] Work Phone: Tobacco use status CPHSb) [facility] Work Phone: Vital Signs Date TimeVital SignValuePerforming SovepponvBksqfcyl85-65-4928 11:07-0400Body rodkzf597.5 cmShy Wolf MD Work Phone: [facility]08-08-2025 11:07-0400 Body mass index (BMI) [Ratio]27.44 kg/y1FtyokqShy Wolf MD Work Phone: [facility]08-08-2025 11:07-0400 Body .04 kgShy Wolf MD Work Phone: [facility]08-08-2025 11:07-0400 Diastolic blood mm[Hg]Shy Wolf MD Work Phone: 1(807)970-[address] [place], [place] 6362308-08-2025 11:07-0400 Heart rate60 /minShy Wolf MD Work Phone: 1(258)239-[address] [place], [place] 6362308-08-2025 11:07-0400 Systolic blood lknuliza595 mm[Hg]Shy Wolf MD Work Phone: 1(824)034-[address] [place], [place] 6362307-15-2025 12:30-0400 Body qqzwim694.[address]07-15-2025 12:30-0400 Body mass index (BMI) [Ratio]26.52 kg/m[address] 12-21-2024 12:30-0400Body hppamk02.[address] 12-21-2024 12:30-0400Diastolic blood ilarriuv11 mm[Hg][address]07-15-2025 12:30-0400Systolic blood zxwjorbh771 mm[Hg][address]07-02-2025 13:56-0400Diastolic blood luwyiklz55 mm[Hg]Reuben Burns BOAT JOINER-BOXING MACHINE OPERATOR Work Phone: 1(299)874-[address] [place], [place] 6362307-02-2025 13:56-0400 Systolic blood mbygevvk459 mm[Hg]Reuben Burns BOAT JOINER-BOXING MACHINE OPERATOR Work Phone: 6([phone])982-[address] [place], [place] 6362307-01-2025 14:59-0400 Body jauiih316.5 cmReuben Burns BOAT JOINER-BOXING MACHINE OPERATOR Work Phone: 1(777)826-[address] [place], [place] 6362307-01-2025 14:59-0400 Body mass index (BMI) [Ratio]26.45 kg/z6AblqkReuben Burns BOAT JOINER-BOXING MACHINE OPERATOR Work Phone: 8(364)252-[address] [place], [place] 6362307-01-2025 14:59-0400 Body ucgnzh48.59 kgReuben Burns BOAT JOINER-BOXING MACHINE OPERATOR Work Phone: 6(841)150-[address] [place], [place] 6362307-01-2025 14:59-0400 Heart rate62 /Torreymurali Burns BOAT JOINER-BOXING MACHINE OPERATOR Work Phone: [facility]11-08-2024 13:16-0500 Body lnboxt166.5 cmShy Wolf MD Work Phone: [facility]11-08-2024 13:16-0500 Body mass index (BMI) [Ratio]26.67 kg/k2DcieyaShy Wolf MD Work Phone: 0(760)458-[address] [place], [place] 6362311-08-2024 13:16-0500 Body ebfdxl66.13 kgShy Wolf MD Work Phone: 5(150)069-[address] [place], [place] 6362311-08-2024 13:16-0500 Diastolic blood gerigxjf00 mm[Hg]Shy Wolf MD Work Phone: 1(051)844-[address] [place], [place] 6362311-08-2024 13:16-0500 Heart rate62 /minShy Wolf MD Work Phone: 1(383)922-[address] [place], [place] 6362311-08-2024 13:16-0500 Systolic blood ayyaktjv155 mm[Hg]Shy Wolf MD Work Phone: 8(802)143-[address] [place], [place] 6362309-04-2024 12:28-0400 Body atlaau600.[address] [place], [place] 8331609-04-2024 12:28-0400 Body mass index (BMI) [Ratio]27.98 kg/m2Ely [address] [place] [address] 02-11-2024 12:28-0400Body .[address] [place] [address] 02-11-2024 12:28-0400Diastolic blood gwezyryy27 mm[Hg][address]09-04-2024 12:28-0400Systolic blood nraknpmj850 mm[Hg][address]01-26-2024 11:15-0500Body uyqaqo826.48 cmSuhas Garrett Other [place] [employer] Other 112671-75-8070 11:15-0500Body mass index (BMI) [Ratio] 28.53 kg/t5Kkkzb Kunadan Other [employer] Other 01-26-2024 11:15-0500Body zxuilq89.76 kgCarterraquel Garrett Other [employer] Other 01-26-2024 11:15-0500Diastolic blood zuxickxa66 mm[Hg] Suhas Ugo Other [employer] Other 01-26-2024 11:15-0500Respiratory rate20 /minSuhas Ugo Other [employer] Other 01-26-2024 11:15-3949RwW4% (BldA) [Mass fraction]99 % Suhasraquel Mayoadan Other [employer] Other 01-26-2024 11:15-0500Systolic blood mm[Hg] Suhas Garrett Other [employer] Other 01-11-2024 11:09-0500Body dvbikw620.5 cmShy Wolf MD Work Phone: [facility]01-11-2024 11:09-0500 Body mass index (BMI) [Ratio]27.98 kg/x2PscehkShy Wolf MD Work Phone: [facility]01-11-2024 11:09-0500 Body poapgj20.4 kgShy Wolf MD Work Phone: [facility]01-11-2024 11:09-0500 Diastolic blood uxazvhyn00 mm[Hg]Shy Wolf MD Work Phone: [facility]01-11-2024 11:09-0500 Heart rate60 /minShy Wolf MD Work Phone: [facility]01-11-2024 11:09-0500 Systolic blood ipvtjpnk417 mm[Hg]Shy Wolf MD Work Phone: [facility]12-22-2023 11:00-0500 Body bcelwc651.48 cmSuhas Garrett Other [employer] Other 882700-25-7524 11:00-0500Body mass index (BMI) [Ratio]27.8 kg/z1OhunqSuhas Garrett Other [employer] Other 12-22-2023 11:00-0500Body ilfjla54.95 kgSuhas Garrett Other [employer] Other 12-22-2023 11:00-0500Diastolic blood eaoarndq19 mm[Hg] Suhas Garrett Other [employer] Other 12-22-2023 11:00-0500Respiratory rate18 /minSuhas Garrett Other [employer] Other 12-22-2023 11:00-2207RkZ4% (BldA) [Mass fraction]96 % Suhas Garrett Other [employer] Other 12-22-2023 11:00-0500Systolic blood jjwihrgc977 mm[Hg] Suhas Garrett Other [employer] Other 09-22-2023 10:30-0400Body dnfdyu418.48 cmSuhas Garrett Other [employer] Other 09-22-2023 10:30-0400Body mass index (BMI) [Ratio] 27.98 kg/n5Ezrmb Gaeladan Other [place] [employer] Other 09-22-2023 10:30-0400Body fsnbza45.4 kgCarterraquel Garrett Other [place] [employer] Other 09-22-2023 10:30-0400Diastolic blood ywiommxv77 mm[Hg] Suhas Garrett Other [place] [employer] Other 09-22-2023 10:30-0400Respiratory rate16 /minCarterraquel Garrett Other [place] [employer] Other 09-22-2023 10:30-2228DhZ9% (BldA) [Mass fraction]91 % Suhas Gaeladan Other [place] [employer] Other 09-22-2023 10:30-0400Systolic blood hhftmiso669 mm[Hg] Suhas Garrett Other [place] [employer] Other 07-18-2023 11:32-0400Body zpiztz567.48 cmSuhas Hoffman Ugo Work Phone: [phone]-Vnunf [place] [facility] 250 DO Work Phone: 1(925) 766-499507-18-2023 11:32-0400Body mass index (BMI) [Ratio] 27.07 kg/l1Vznqj P Ugo Work Phone: mp015-1475NM-Iaymv [place] [facility] 250 DO Work Phone: 1(695) 290-956207-18-2023 11:32-0400Body surface area Derived from formula1.68 j2Erbbu P Gaels Work Phone: mp363-8792UV-Gwesx [place] [facility] 250 DO Work Phone: 1(515) 790-266707-18-2023 11:32-0400Body vstdog73.13 kgSuhas Mayoadan Work Phone: mp126-2269GO-Navcu [place] [facility] 250 DO Work Phone: 1(926) 685-608207-18-2023 11:32-0400Diastolic blood vlpkokin52 mm[Hg] Suhas Garrett Work Phone: mp463-4838KV-Vkyzy [place] [facility] 250 DO Work Phone: 1(305) 671-266507-18-2023 11:32-0400Heart rate68 /minSuhas Mayos Work Phone: mp025-8990FJ-Eeizy [place] [facility] 250 DO Work Phone: 1(126) 730-916607-18-2023 11:32-0400Systolic blood hfoxezyo028 mm[Hg] Suhas Garrett Work Phone: [phone]-O[place]oh [place] [facility] 250 DO Work Phone: 1(665) 881-611806-30-2023 10:30-0400Body rcuxfn285.48 cmSuhas Garrett Other [employer] Other 06-30-2023 10:30-0400Body mass index (BMI) [Ratio] 27.98 kg/o5MasoqSuhas Garrett Other [employer] Other 06-30-2023 10:30-0400Body atksxm09.4 kgSuhas Garrett Other [employer] Other 06-30-2023 10:30-0400Diastolic blood ykiqbizr59 mm[Hg] Suhas Garrett Other [employer] Other 06-30-2023 10:30-0400Respiratory rate16 /minSuhas Garrett Other [employer] Other 06-30-2023 10:30-1129GuA7% (BldA) [Mass fraction]98 % Suhas Garrett Other [employer] Other 06-30-2023 10:30-0400Systolic blood mm[Hg] Suhasraquel Garrett Other [employer] Other 04-14-2023 11:45-0400Body manqsj789.48 cmSuhas Garrett Other [employer] Other 04-14-2023 11:45-0400Body mass index (BMI) [Ratio] 26.34 kg/j6MmmisSuhas Garrett Other [employer] Other 04-14-2023 11:45-0400Body mojrhx09.32 kgSuhas Garrett Other [employer] Other 04-14-2023 11:45-0400Diastolic blood hbusegpu79 mm[Hg] Suhas Garrett Other [employer] Other 04-14-2023 11:45-0400Respiratory rate16 /minSuhas Garrett Other [employer] Other 04-14-2023 11:45-8753SgR4% (BldA) [Mass fraction]98 % Suhasraquel Garrett Other [employer] Other 04-14-2023 11:45-0400Systolic blood pnydtshd624 mm[Hg] Suhasraquel Mayoadan Other [employer] Other 02-13-2023 11:30-0500Body jdefce964.48 cmSuhas Garrett Other [employer] Other 02-13-2023 11:30-0500Body mass index (BMI) [Ratio] 26.85 kg/j2YerzgSuhas Garrett Other [employer] Other 02-13-2023 11:30-0500Body yiikdr61.59 kgCarterraquel Garrett Other [employer] Other 02-13-2023 11:30-0500Diastolic blood oliqzryx92 mm[Hg] Suhas Ugo Other [employer] Other 02-13-2023 11:30-0500Respiratory rate16 /minBryraquel Garrett Other [employer] Other 02-13-2023 11:30-6976RqJ3% (BldA) [Mass fraction]98 % Suhas Garrett Other [employer] Other 02-13-2023 11:30-0500Systolic blood qgtcqhfe855 mm[Hg] Suhas Garrett Other [employer] Other 11-09-2022 11:45-0500Body tckiav783.48 cmCarterraquel Garrett Other [employer] Other 11-09-2022 11:45-0500Body mass index (BMI) [Ratio] 26.88 kg/z5Qewmc Kuns Other [employer] Other 11-09-2022 11:45-0500Body iozymn58.68 kgCarterraquel Garrett Other [employer] Other 11-09-2022 11:45-0500Diastolic blood kpdzlitd70 mm[Hg] Suhas Ugo Other [employer] Other 11-09-2022 11:45-0500Respiratory rate16 /minSuhas Garrett Other [employer] Other 11-09-2022 11:45-6553QoJ3% (BldA) [Mass fraction]99 % Suhas Garrett Other [employer] Other 11-09-2022 11:45-0500Systolic blood qyaqwarc995 mm[Hg] Suhas Garrett Other [employer] Other 09-16-2022 10:15-0400Body yvdjgo841.48 cmSuhas Garrett Other [employer] Other 09-16-2022 10:15-0400Body mass index (BMI) [Ratio] 27.07 kg/c5Iexoj Kunadan Other [employer] Other 09-16-2022 10:15-0400Body lkyyob54.13 kgCarterraquel Garrett Other [employer] Other 09-16-2022 10:15-0400Diastolic blood mm[Hg] Suhas Garrett Other [employer] Other 09-16-2022 10:15-0400Respiratory rate16 /minSuhas Garrett Other [employer] Other 09-16-2022 10:15-9629UgA9% (BldA) [Mass fraction]97 % Suhas Garrett Other [employer] Other 09-16-2022 10:15-0400Systolic blood fcrvenng417 mm[Hg] Suhas Garrett Other [employer] Other 09-15-2022 10:45-277592 1Bprimo Garrett Work Phone: [phone][place] [address] Work Phone: Comment on above:[id number] 15:45-0400Body iczzzr810.48 cmSuhas Garrett Other [employer] Other 09-08-2022 15:45-0400Body mass index (BMI) [Ratio]26.7 kg/r6OnlmbSuhas Garrett Other [employer] Other 09-08-2022 15:45-0400Body .23 kgSuhas Garrett Other [employer] Other 09-08-2022 15:45-0400Diastolic blood qwnjboge14 mm[Hg] Suhas Garrett Other [employer] Other 09-08-2022 15:45-0400Respiratory rate16 /minSuhas Garrett Other [employer] Other 09-08-2022 15:45-2366TtV0% (BldA) [Mass fraction]96 % Suhas Garrett Other [employer] Other 09-08-2022 15:45-0400Systolic blood wpecxrat253 mm[Hg] Suhas Garrett Other [place] [employer] Other 07-20-2022 11:04-0400Body bvhwby486.48 cmSuhas Garrett Work Phone: mp396-7182RQ-Kdfzb [place] [facility] 250 DO Work Phone: 1(651) 199-495407-20-2022 11:04-0400Body mass index (BMI) [Ratio] 26.16 kg/f6ZpzeaSuhas Garrett Work Phone: mp163-8484VS-Uccvr [place] [facility] 250 DO Work Phone: 1(178) 321-373207-20-2022 11:04-0400Body surface area Derived from formula1.66 s1BcjjfSuhas Garrett Work Phone: mp861-2966BZ-Bpzkj [place] [facility] 250 DO Work Phone: 1(204) 685-308507-20-2022 11:04-0400Body zrfeyh55.86 kgSuhas Garrett Work Phone: mp519-6622JO-Hxenu [place] [facility] 250 DO Work Phone: 1(164) 272-492307-20-2022 11:04-0400Diastolic blood kcsstyjc94 mm[Hg] Suhas Garrett Work Phone: mp131-1567BN-Sfzlu [place] [facility] 250 DO Work Phone: 1(519) 193-146907-20-2022 11:04-0400Heart rate56 /minSuhas Garrett Work Phone: mp044-6303IW-Whfgn [place] [facility] 250 DO Work Phone: 1(745) 506-543607-20-2022 11:04-0400Systolic blood fcypungf204 mm[Hg] Suhas Garrett Work Phone: mp985-4233HG-Optwb [place] [facility] 250 DO Work Phone: 1(128) 646-778107-20-2022 11:00-0400Diastolic blood aivpmgbm98 mm[Hg] Suhas Garrett Work Phone: 1(641) 574-9253738-2647MD-Gmwsb [place] [facility] 250 DO Work Phone: 1(523) 354-964407-20-2022 11:00-0400Systolic blood ddakdoko791 mm[Hg] Suhas Garrett Work Phone: 1(327) [phone]-Pdnss [place] [facility] 250 DO Work Phone: 1(212) 229-445907-07-2022 11:39-0400Diastolic blood fkptaggb15 mm[Hg] Suhas Garrett Work Phone: 1(360)[address] [place] [address] Work Phone: 1(943) 497-531507-07-2022 11:39-0400Systolic blood htelhjhg963 mm[Hg] Suhas Garrett Work Phone: 1(845)[address] [place] [address] Work Phone: 1(691) 667-456707-07-2022 11:22-0400Diastolic blood wzqbjhih25 mm[Hg] Suhas Garrett Work Phone: 1(073)[address] [place] [address] Work Phone: 1(512) 705-468507-07-2022 11:22-0400Systolic blood fibsjblq365 mm[Hg] Suhas Garrett Work Phone: 1(873)[address] [place] [address] Work Phone: 1(556) 251-602107-07-2022 11:17-0400Body qastat489.48 cmSuhas Garrett Work Phone: 1(308)[address] [place] [address] Work Phone: [phone]8-79-5980 11:17-0400Body mass index (BMI) [Ratio] 26.52 kg/m0CglctSuhas Garrett Work Phone: 1(452)[facility]76[facility] Work Phone: [phone]4-1117 11:17-0400Body surface area Derived from formula1.67 q0QsgedSuhas Garrett Work Phone: 1(084)[address] [place] [address] Work Phone: 1(456) 486-549107-07-2022 11:17-0400Body widehl42.77 kgSuhas Garrett Work Phone: 1(419)[address] [place] [address] Work Phone: 1(717) 582-556407-07-2022 11:17-0400Diastolic blood yqsetiew63 mm[Hg] Suhas Garrett Work Phone: [facility] Work Phone: 1(994) 591-158707-07-2022 11:17-0400Heart rate60 /minSuhas Garrett Work Phone: [facility] Work Phone: 1(250) 971-749707-07-2022 11:17-0400Systolic blood fsajtzzu756 mm[Hg] Suhas Garrett Work Phone: [facility] Work Phone: 1(205) 275-564004-25-2022 13:30-0400Body pbuppz482.48 cmSuhas Garrett Other [employer] Other 04-25-2022 13:30-0400Body mass index (BMI) [Ratio] 26.34 kg/f1QrpxpSuhas Garrett Other [employer] Other 04-25-2022 13:30-0400Body oeqbzt85.32 kgSuhas Garrett Other [employer] Other 04-25-2022 13:30-0400Diastolic blood dujuwvam79 mm[Hg] Suhas Garrett Other [employer] Other 04-25-2022 13:30-0400Respiratory rate18 /minSuhas Garrett Other [employer] Other 04-25-2022 13:30-6760SlS6% (BldA) [Mass fraction]99 % Suhas Garrett Other [employer] Other 04-25-2022 13:30-0400Systolic blood fiosemcc023 mm[Hg] Suhas Garrett Other [employer] Other 02-24-2022 13:30-0500Body alxxhe355.48 cmCarterraquel Garrett Other [employer] Other 02-24-2022 13:30-0500Body mass index (BMI) [Ratio] 26.52 kg/l9Ygcuo Kunadan Other [employer] Other 02-24-2022 13:30-0500Body nthezi07.77 kgCarterraquel Garrett Other [employer] Other 02-24-2022 13:30-0500Diastolic blood mm[Hg] Suhas Garrett Other [employer] Other 02-24-2022 13:30-0500Respiratory rate16 /minSuhas Garrett Other [employer] Other 02-24-2022 13:30-0116LlH2% (BldA) [Mass fraction]99 % Suhas Garrett Other [employer] Other 02-24-2022 13:30-0500Systolic blood mm[Hg] Suhas Ugo Other [employer] Other 11-18-2021 13:30-0500Body dhweza895.48 cmSuhas Garrett Other [employer] Other 11-18-2021 13:30-0500Body mass index (BMI) [Ratio] 25.97 kg/n5BwfhkSuhas Garrett Other [employer] Other 11-18-2021 13:30-0500Body dbeofi74.41 kgSuhas Garrett Other [employer] Other 11-18-2021 13:30-0500Diastolic blood njwmkemu41 mm[Hg] Suhas Garrett Other [employer] Other 11-18-2021 13:30-0500Respiratory rate17 /minSuhas Garrett Other [employer] Other 11-18-2021 13:30-3173IaU7% (BldA) [Mass fraction]98 % Suhas Garrett Other [employer] Other 11-18-2021 13:30-0500Systolic blood bvnnftaq271 mm[Hg] Suhas Garrett Other [employer] Other Encounters Encounter DateEncounter TypeCare ProviderFacilityStart: 02-14-2025 End: 80-57-2367ieoefqbjupPsvosugJorge Weston MDFacility:[facility] [place] Start: 01-14-2025 End: 30-43-1079Jqlrae outpatient visit 25 minutesShy Wolf MD Work Phone: [facility] CenterComment on above:Nonrheumatic aortic valve stenosis (Primary Dx); 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; Hyperlipidemia, unspecified hyperlipidemia type; PMR (polymyalgia rheumatica) (Multi); Hypothyroidism, unspecified type; BMI 27.0-27.9,adult; Never smoked any substance; OverweightStart: 01-14-2025 End: 86-07-9657nrqgavoqewJZWCPR M [facility]BRHill [facility] AmbulatoryStart: 12-21-2024 End: 73-63-0718Hhdanseklm hospital visit by Julia Baker Echo[facility]Vasc Room 2[facility] HospitalComment on above:Aortic valve stenosis, etiology of cardiac valve disease unspecifiedStart: 12-21-2024 End: 79-81-2799zowpqgtonfUVGDDTUniversity Hospitals Elyria Medical Centertart: 12-07-2024 End: 45-24-1564Lszehy outpatient visit 15 Silkemayo Gibbs [place] BURGER Work Phone: uh [facility] HospitalComment on above: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 (Primary Dx); BMI 26.0-26.9,adultStart: 12-07-2024 End: 69-19-3099xecqxgxqhgWQONSReplaced by [facility] AmbulatoryStart: 10-25-2024 End: 34-89-0310uwhytgrkaoTxthezj Vytautas Giedraitis MDFacility:[facility] [place] Start: 09-13-2024 End: 37-34-5102ahlnjhgciaValmann Vytautas Giedraitis MDFacility:[facility] [place] Start: 07-28-2024 End: 13-65-8713akfspxexjnFvfpr UgoFacility:[facility] Start: 05-25-2024 End: 91-75-6890tzaevbbereGstln KunsFacherokee regional medical center:[facility] Start: 04-16-2024 End: 50-13-5321Wtcznx outpatient visit 25 minutesShy Wolf MD Work Phone: uh [facility] HospitalComment on above:Aortic valve stenosis, etiology of cardiac valve disease unspecified (Primary Dx); Essential hypertension; Hyperlipidemia, unspecified hyperlipidemia type; Never smoked any substance; BMI 26.0-26.9,adult; Hypothyroidism, unspecified typeStart: 04-16-2024 End: 99-44-0310fhnvdmxbsbNOOCNF [facility] AmbulatoryStart: 02-11-2024 End: 79-01-8350Gfokktugmr hospital visit by Julia Baker Echo[facility]asc [facility]Com[facility] on above:Nonrheumatic aortic valve stenosis; Aortic valve stenosis, etiology of cardiac valve disease unspecifiedStart: 02-11-2024 End: 04-54-7693puwtxrqxgzUFCJFR [facility] Hospitaltart: 10-14-2023 End: 03-25-5868kufgedvhqjSrien KunsFacility:[facility] Start: 09-03-2023 End: 10-95-0192futaotlrqvMbgze [facility]elsFacility[facility] Start: 07-18-2023 End: 10-21-2540pxfzlpqjrbMdrqj Gaels Other [employer] Other Start: 44-62-4963Tkoeackkd encounterBryraquel MayosFPG [facility] CastaliaStart: 07-15-2023 End: 61-16-0825payilgqcqgApkes Kuns Other [employer] Other Start: 24-47-1357Wemafxgcd encounterBryraquel MayosFPG [facility] CastaliaStart: 07-10-2023 End: 62-68-0294disedqfaofWcfna Kuns Other [employer] Other Start: 59-99-4943Bbncjhkxk encounterBryraquel MayosFPG [facility] CastaliaStart: 07-07-2023 End: 51-45-3853jgqdhfvlxeJtoyo Kuns Other [employer] Other Start: 62-27-7350Xrgcofehv encounterBryraquel MayosFPG [facility] CastaliaStart: 07-04-2023 End: 84-32-6572weuweubrmvIakpn Kuns Other [employer] Other Start: 88-22-3053Entxnf outpatient visit 15 minutes Suhas MayosFPG [facility] CastaliaStart: 06-19-2023 End: 37-11-9795trnmjfozdhRklbi Kuns Other [employer] Other Start: 23-22-2326Wshlgdrlj encounterSuhas MayoCory Family Medicine CastaliaStart: 06-19-2023 End: 07-20-9821Eipqgk outpatient visit 25 minutesShy Wolf MD Work Phone: [facility] ServicesComment on above:Aortic valve stenosis, etiology of cardiac valve disease unspecified; Essential hypertension; Hyperlipidemia, unspecified hyperlipidemia type; Never smoked any substanceStart: 05-30-2023 End: 46-42-6106dacmrkbhdbXkefb Kuns Other [employer] Other Start: 97-91-8581Mzjqct outpatient visit 25 minutes Suhas MayoadanLEYDI Family Medicine CastaliaStart: 05-28-2023 End: 84-28-1620zozdqlhsjhFnjdl Kuns Other simpleFLOORSStar[employer] Other Start: 29-91-1165Evodfhvop encounterSuhas MayoDereckShravan Family Medicine CastaliaStart: 04-23-2023 End: 41-99-4633ppodzfgdfqFthys Kuns Other [employer] Other Start: 90-77-6407Qmxwsnzen encounterSuhas MayoDereckShravan [facility] CastaliaStart: 04-18-2023 End: 28-88-5051cjfpwmwfrcIpcfv Kuns Other [employer] Other Start: 66-01-8118Tqcutvnmu encounterSuhas MayoadanFPG Family [facility] CastaliaStart: 36-52-0087Tpxtc UpdateSuhas Garrett Work Phone: [phone]-DbpxeRidgeview Medical Center 250 DO Work Phone: Start: 02-28-2023 End: 07-11-4105hbpclwkhljQznvq Kuns Other [employer] Other Start: 77-58-5424Nupbab outpatient visit 15 minutes Suhas GaelCory Family Medicine CastaliaStart: 47-35-2874qvvpuqrxbqGe. Suhas GarrettTri-State Memorial Hospitality:[id number]: 01-27-2023 End: 83-69-6149ksqcjqcfklZjdxs Kuns Other [employer] Other Start: 68-62-8650Rfuebubma encounterBryraquel Sommers [facility] CastaliaStart: 49-32-6374Pinhfr outpatient visit 25 minutesSuhas Garrett Work Phone: [phone]-PeasfJoe [place] [address] DO Work Phone: Start: 46-76-6883unrlsqcaqdMc. Shy Agosto [facility] Facility:[id number]: 12-06-2022 End: 93-99-5955wamsypqaekJpcpa Kuns Other [employer] Other Start: 69-57-5958Ebpctq outpatient visit 15 minutes Suhas GaelCory [facility] CastaliaStart: 09-20-2022 End: 65-49-2118tkezewzlftHjhiv Kuns Other [employer] Other Start: 54-87-4174Ijfyeq outpatient visit 15 minutes Suhas GaelCory [facility] CastaliaStart: 08-14-2022 End: 05-57-3128cnjzmzlijeFajnm Kuns Other [employer] Other Start: 37-52-8427Bekikvqyj encounterBryraquel GaelCory Family Medicine CastaliaStart: 07-22-2022 End: 30-58-2887nzjzurwugyMywgp Kuns Other [employer] Other Start: 01-89-3717Ayfoac outpatient visit 15 minutes Suhas Sommers [facility] CastaliaStart: 04-17-2022 End: 03-76-9081zihsgzkhxkTjikl Kuns Other noThe [employer] Other Start: 36-26-3239Pzmiie outpatient visit 15 minutes Suhas ManciniG Family Medicine CastaliaStart: 04-10-2022 End: 82-50-7957napxxkuuliYloob Kuns Other no[employer] Other Start: 13-54-0679Fkytpsbrk encounterBryraquel GarrettFPG [facility] CastaliaStart: 04-03-2022 End: 37-65-2586dpmpprhqxjRokje Kuns Other no[employer] Other Start: 37-47-9865Qhlvkeang encounterBryraquel GarrettFPG [facility] CastaliaStart: 04-02-2022 End: 01-75-7383avfrgpcbkmNrmfh Kuns Other [facility]ASH Other Start: 07-86-1914Xcbxwiomb encounterBryraquel GarrettFPG [facility] CastaliaStart: 02-26-2022 End: 58-21-5337ofnvihvbkgAwmhe Kuns Other [facility] [employer]ASH Other Start: 15-67-4970Mdlhcoktk encounterBryraquel GarrettFPG [facility] CastaliaStart: 02-25-2022 End: 80-62-3301tnklljgsfdPpdcv Kuns Other [employer] Other Start: 94-98-9041Syhshdssx encounterBryraquel MayosFPG [facility] CastaliaStart: 02-22-2022 End: 59-47-7174ricphayneoRocbm Kuns Other [place] HealthStar[employer] Other Start: 08-71-9395Oaxnuk outpatient visit 25 minutes Suhas MayoadanLEYDI Family Medicine CastaliaStart: 08-68-6039Drgyvqi encounter procedureSuhas Garrett Work Phone: [phone]-QhzstOlivia Hospital [facility] Clin[facility] [address] [place] Work Phone: Start: 02-20-2022 End: 13-02-5315ygbkhhsqccKMHZFZW M MANONFacility:L7Pfogo: 02-14-2022 End: 65-76-6012aapvcdedowHjdnh Kuns Other [place] [facility] Other Start: 01-60-2798Rrpgcv outpatient visit 25 minutes Suhas Sommers [facility] CastaliaStart: 01-11-2022 End: 39-86-3449vsxxqgvgvjHaxcc Kuns Other [place] [facility]Star[employer] Other Start: 43-42-8008Ronnksq evaluation of patient and reportBryraquel MayoadanLEYDI Family Medicine CastaliaStart: 82-58-4581Cvtbhnfvh encounter Suhas GaeladanLEYDI Family Medicine CastaliaStart: 02-69-1059Xlkjnz outpatient visit 10 minutesSuhas Garrett Work Phone: [phone]-HikuyOlivia Hospital And Clinics 250 DO Work Phone: Start: 00-81-9941jtxhhbfpjoYr. Bryan Patrick Kuns Facility:[id number]: 12-20-2021 End: 94-57-6386ftoubnlafmOxizy Kuns Other noStarBlock.com Other Start: 13-64-4750Ybttagesi encounterSuhas MayoadanLEYDI Family Medicine CastaliaStart: 19-12-6406Txwqjz outpatient visit 25 minutesSuhas Garrett Work Phone: [facility] Work Phone: Start: 11-02-2021 End: 78-82-2759hxsqibkbkrZnviy Kuns Other [employer] Other Start: 47-95-1875Ybondsarp encounterBryraquel GarrettFPG [facility] CastaliaStart: 10-01-2021 End: 87-74-4354cahvdybnznByona Kuns Other [employer] Other Start: 65-06-7954Fnzlcw outpatient visit 15 minutes Suhas GarrettFPG [facility] CastaliaStart: 09-10-2021 End: 58-04-6050cbdkzlkhgqVivsf Kuns Other [employer] Other start: 34-50-9922Axassxaqy encounterBryraquel GarrettFPG [facility] CastaliaStart: 08-20-2021 End: 16-87-3568itreriuyhgKolej Kuns Other [employer] Other Start: 03-76-5508Wzukvepmc encounterBryraquel GarrettFPG [facility] CastaliaStart: 08-02-2021 End: 36-73-9686zzhevjkyqwKxljx Kuns Other [employer] Other Start: 01-39-2721Dqcegm outpatient visit 15 minutes Suhas GarrettFPG [facility] CastaliaStart: 07-25-2021 End: 21-01-4173xqqocerkiyLhxww Kuns Other [employer] Other Start: 81-64-9483Qkzivbzwn encounterBryraquel GarrettFPG [facility] CastaliaStart: 05-08-2021 End: 30-27-6206isviojvworJgjwz Kuns Other [employer] Other start: 80-98-3341Hepfunyli encounterCarterraquel Matthieu [facility] CastaliaStart: 04-26-2021 End: 58-86-9466tulxaiewlsPvdrl Kuns Other [facility] [employer]ASH Other Start: 98-03-4970Hakwfl outpatient visit 25 minutes Suhas Sommers [facility] [place] Procedures DateProcedureProcedure Detail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Start: 54-80-7601Bynl [facility] r-t 2d w/wom-mode compl spec&colr Clayton Wolf MD Work Phone: Start: 36-28-0842AoqeoqsssuhhpgjyYaqub P Kuns Work Phone: Start: 29-95-5416WffokawqvwrgktraQqjpq P Kuns Work Phone: AppendectomyBryan P Kuns Work Phone: CholecystectomyBryan P Kuns Work Phone: Operation on ovaryBryan P Kuns Work Phone: ThyroidectomyBryan P Kuns Work Phone: Total colonoscopyBryan P Kuns Work Phone: Plan of Treatment DateCare ActivityDetailAuthorStart: 45-51-3680CChC/Tdap/Td Vaccines (2 - Td or Tdap)DTaP/Tdap/Td Vaccines (2 - Td or Tdap)[facility] Start: 01-26-2026 End: 76-61-2186Mfihfns encounter rwykmgpcn56/20/2026 11:00 AM EDT Office Visit [facility] [address] [facility] [address] [place] [address] Shy Wolf MD [address] [facility] [address], [address] [place] [address] [facility] ServicesStart: 04-93-1978FsldvonhhldqpoqdBfnukugbhrpquh [facility]: 12-20-2025 End: 31-28-9473Yynllbx encounter ozydpiiat27/14/2026 10:45 AM EDT Appointment [place] [address] [facility] [address] [place] [address] [facility]: [facility] End: 57-65-8635DO Heart TransthoracicTransthoracic Echo Complete Echocardiography Routine Nonrheumatic aortic valve stenosis Expected: 12/14/2025 (Approximate), Expires: 01/14/2027[facility] Service Area Work Phone: Comment on above:Expected: 12/14/2025 (Approximate), Expires: 01/14/2027Start: 03-01-2026Medicare Annual Wellness VisitMedicare Annual Wellness Visit (AWV)[facility]: 02-10-2025 EchocardiographyEchocardiogramUnPomerene Hospital: 02-07-2025 Influenza vaccinationInfluenza Vaccine (#1)[facility] Start: 01-14-2025 End: 39-98-5131QB Heart TransthoracicTransthoracic Echo Complete Echocardiography Routine Aortic valve stenosis, etiology of cardiac valve disease unspecified Expected: 01/14/2025 (Approximate), Expires: 04/16/2026[facility] Service Area Work Phone: Comment on above:Expected: 01/14/2025 (Approximate), Expires: 04/16/2026Start: 01-14-2025 End: 77-86-0458Ltvjaxq encounter rfujxkwuo44/08/2025 11:00 AM EDT Office Visit [address] [place] [address] Shy Wolf MD [address] [facility] [address], [address] [place] [address] [facility]: 12-21-2024 End: 51-57-1390Hjcpmiw encounter /15/2025 12:30 PM EDT Appointment [place] [address] [place] [address] [place] [address] [facility]: 77-22-0282WZMYF-19 Vaccine ( season)COVID-19 Vaccine ( season)[facility]: 03-16-2024 End: 91-76-7397Uhdhyqn encounter lvintubpq06/08/2024 11:20 AM EDT Office Visit [address] [phone] Shy Wolf MD [address] [facility] 2, [address] [address] [facility]: 25-24-0803Ljzdcskgl for osteoporosisBone Density [facility]: 02-11-2024 End: 56-54-7013Yjbxhmd encounter ygipyougy45/04/2024 12:30 PM EDT Appointment [address] [phone] [facility]: 83-59-5818GRARZ-19 Vaccine ( season)COVID-19 Vaccine ( season)[facility]: 02-08-2024 Influenza vaccinationInfluenza Vaccine (#1)[facility] Start: 02-08-2024 End: 44-65-6866NF Heart TransthoracicTransthoracic Echo (TTE) Complete Echocardiography Routine Aortic valve stenosis, etiology of cardiac valve disease unspecified Expected: 02/08/2024 (Approximate), Expires: 06/19/2025[facility] Service Area Work Phone: Comment on above:Expected: 02/08/2024 (Approximate), Expires: 06/19/2025Start: 62-01-6904PQO, Provider: Shy Wolf, Status: Pen, Time: 11:00 AMFUV, Provider: Shy Wolf, Status: Pen, Time: 11:00 AMJoe [place] [address] DO Work Phone: Start: 50-68-2891MIGNM-19 Vaccine (5 - Moderna series) COVID-19 Vaccine (5 - Moderna series)[facility] CenterStart: 72-34-9523CIIQ, Provider: SAMUEL HHVI ULTRASOUND 01,[id number], Status: Pen, Time: 10:45 AMECHO, Provider: SAMULE YII ULTRASOUND 01,[id number], Status: Pen, Time: 10:45 [facility] 250 DO Work Phone: Start: 64-62-0704EEK, Provider: Shy Wolf, Status: Pen, Time: 11:20 AMFUV, Provider: Shy Wolf, Status: Pen, Time: 11:20 [facility] Work Phone: Start: 89-66-8747EHJIWTJ, Provider: SAMUEL YII ULTRASOUND 01,[id number], Status: Pen, Time: 12:30 PMCAROTID, Provider: SAMUEL HHVI ULTRASOUND 01,[id number], Status: Pen, Time: 12:30 PMD[facility] Work Phone: start: 43-52-4231UXRE, Provider: SAMUEL HHVI ULTRASOUND 01,[id number], Status: Pen, Time: 10:45 AMECHO, Provider: SAMUEL HHVI ULTRASOUND 01,[id number], Status: Pen, Time: 10:45 [facility] Work Phone: start: 17-76-1496QAJYHGK, Provider: SAMUEL HHVI ULTRASOUND 01,[id number], Status: Pen, Time: 2:30 PMCAROTID, Provider: SAMUEL HHVI ULTRASOUND 01,[id number], Status: Pen, Time: 2:30 PMD[facility] Work Phone: start: 80-00-3519FNCE, Provider: SAMUEL HHVI ULTRASOUND 01,[id number], Status: Pen, Time: 1:30 PMECHO, Provider: SAMUEL HHVI ULTRASOUND 01,[id number], Status: Pen, Time: 1:30 PMD[facility] Work Phone: Start: 36-23-4282TRPBKFIY, Provider: MAGDA DANIEL CUTTER OPERATOR ASBESTOS SHINGLE 1,[id number], Status: Pen, Time: 11:00 AMNURSEVST, Provider: MAGDA DANIEL CUTTER OPERATOR ASBESTOS SHINGLE 1,[id number], Status: Pen, Time: 11:00 [facility] Work Phone: Start: 00-10-5332Akaukvjtk B Vaccines (1 of 3 - Risk 3-dose series)Hepatitis B Vaccines (1 of 3 - Risk 3-dose series)[facility]: 53-62-2666Kmgeasmps A Vaccines (1 of 2 - Risk 2- dose series)Hepatitis A Vaccines (1 of 2 - Risk 2-dose series)[facility]: 79-08-1510Sjvbmrxlqq measurementCreatinine Level [facility]: 92-53-0934Dwabe panelLipid Panel [facility]: 03-04-1937Medicare Annual Wellness Visit Medicare Annual Wellness Visit (AWV)[facility]: 32-42-6661Oedjgvmbx measurementPotJackson C. [facility] Start: 40-97-4771Bxqwvoa stimulating hormone measurementTSDrumright Regional Hospital – DrumrightECG 12 LeadECG 12 Lead ECG Routine 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 Ordered: 12/08/2024[facility] Area Work Phone: Comment on above:Ordered: 12/08/2024 End: 44-20-8423CI Heart TransthoracicFlushing [facility] Medical [facility] Work Phone: Comment on above:Once for 1 Occurrences starting 02/11/2024 until 02/11/2024 Immunizations Immunization DateImmunizationNotesCare EcstwhojCrkeyepj07-28-9896Xdlhzcryhuxi conjugate vaccine, 20-valent (PREVNAR 20)Shy Wolf MD Work Phone: [facility] Work Phone: [phone] COVID-19 vaccine, 12 years and older (50mcg/0.5mL)(Spikevax)Shy Wolf MD Work Phone: [facility] Work Phone: [phone] trivalent influenza vaccine, adjuvanted, preservative freeShy Wolf MD Work Phone: [facility] Work Phone: [phone] virus vaccine, unspecified formulationReuben Burns BOAT JOINER-BOXING MACHINE OPERATOR Work Phone: [facility] Work Phone: [phone] SYNCYTIAL VIRUS (RSV), ELIGIBLE PTS, 0.5 ML (ABRYSVO)Shy Wolf MD Work Phone: [facility] Work Phone: [phone], Seasonal, Quadrivalent, AdjuvantedShy Wolf MD Work Phone: [facility] Work Phone: [phone] COVID-19 vaccine, 12 years and older (50mcg/0.5mL)(Spikevax)Shy Wolf MD Work Phone: [facility] Work Phone: [phone] virus vaccine, unspecified formulationEly 2[facility] Work Phone: [phone] COVID-19 Bivalent 50 MCG/0.5ML Intramuscular SuspensionSuhas Garrett Work Phone: mp-[facility] [address] DO Work Phone: [phone] Quadrivalent 0.5 ML Intramuscular Prefilled SyringeBryraquel P Ugo Work Phone: [phone]-OkobcOlivia Hospital And Clinics 250 DO Work Phone: [phone]qg, seasonal, injectableBryan Kuns Other [facility] [employer] Other [id number] COVID-19 Vaccine 100 MCG/0.5ML Intramuscular SuspensionBryan P Kuns Work Phone: [facility] Work Phone: [phone] COVID-19 Vaccine 100 MCG/0.5ML Intramuscular SuspensionBryan P Kuns Work Phone: [facility] Work Phone: [phone], seasonal, injectableBryan Kuns Other [place] [employer] Other [id number] COVID-19 Vaccine 100 MCG/0.5ML Intramuscular SuspensionBryan P Kuns Work Phone: [facility] Work Phone: [phone]w COVID-19 Vaccine 100 MCG/0.5ML Intramuscular SuspensionBryan P Kuns Work Phone: [facility] Work Phone: [phone]dt polysaccharide vaccine, 23 valentBryan Gaels Other [facility] [employer] Other 09-990807-87-1450Zzppqhtp trivalent influenza vaccine, adjuvanted, preservative freeBryan P Kuns Work Phone: [facility] Work Phone: [phone]scpfjq, seasonal, injectableBryan Kuns Other [place] [employer] Other 09-832848-81-7123mgurxirfr virus vaccine, unspecified formulationBryan P Kuns Work Phone: [facility] Work Phone: [phone]ypokqclc, seasonal, injectableBryan Kuns Other noThe [employer] Other 11-826333-56-8839gzldps vaccine recombinantBryan Kuns Other [employer] Other 10-461442-75-2884gztbblhtu, high dose seasonal, preservative-freeBryan P Kuns Work Phone: [facility] Work Phone: [phone]kdwd, seasonal, injectableBryan Kuns Other [place] [employer] Other 08666073-52-7096rwvwxp vaccine recombinantBryan Kuns Other [place] [employer] Other [id number] toxoid, reduced diphtheria toxoid, and acellular pertussis vaccine, adsorbedBryan Kuns Other [place] [employer] Other 10704570-92-4367Xnawpayl trivalent influenza vaccine, adjuvanted, preservative freeShy Wolf MD Work Phone: [facility] Work Phone: [phone]esghnn virus vaccine, unspecified formulationBryan P Kuns Work Phone: [facility] Work Phone: [phone]czo virus vaccine, unspecified formulationBryan P Kuns Work Phone: [facility] Work Phone: [phone]e trivalent influenza vaccine, adjuvanted, preservative freeBryan P Kuns Work Phone: [facility] Work Phone: [phone]jmjcuxwtv conjugate vaccine, 13 valent Shy Wolf MD Work Phone: [facility] Work Phone: [phone]jwnztsvvi conjugate vaccine, 13 valent Suhas Gaels Other [facility] [employer] Other 10-768205-35-6500Wmrwwdyg trivalent influenza vaccine, adjuvanted, preservative freeCarteran P Gaels Work Phone: [facility] Work Phone: [phone]euefvxlv virus vaccine, unspecified formulationBryan P Kuns Work Phone: [facility] Work Phone: [phone]jdxecwlfbcs conjugate vaccine, 13 valent Suhas Dalton Garrett Work Phone: [facility] Work Phone: [phone]yqpanb, injectable, quadrivalent, contains preservativeBryan P Kuns Work Phone: [facility] Work Phone: [phone]xmifencc virus vaccine, unspecified formulationBryan P Kuns Work Phone: [facility] Work Phone: [phone]lrnjpbnh, seasonal, injectable, preservative freeCarteran P Kuns Work Phone: [facility] Work Phone: [phone]fqhjgyvx virus vaccine, whole virusCarteran P Gaels Work Phone: [facility] Work Phone: [phone]aicmifyc, seasonal, injectableBryan P Kuns Work Phone: [facility] Work Phone: [phone]nwknfgsp virus vaccine, unspecified formulationCarteran P Kuns Work Phone: [facility] Work Phone: [phone]ncnhxjnp, injectable, quadrivalent, contains preservativeBryan Kuns Other [place] [employer] Other 01278652-67-2262fxgpzvdil virus vaccine, unspecified formulationBryan P Kuns Work Phone: [facility] Work Phone: [phone]uyvneu virus vaccine, unspecified formulationBryan P Kuns Work Phone: [facility] Work Phone: [phone] [phone]glothn virus vaccine, unspecified formulationBryan P Kuns Work Phone: [facility] Work Phone: [phone] izgwonlrz-B6W0-21, preservative-free, injectableBryan P Kuns Work Phone: [facility] Work Phone: [phone]awhdos virus vaccineBryan P Kuns Work Phone: [facility] Work Phone: [phone] 224-742901-074021-26-6939nxllqpugdher polysaccharide vaccine, 23 valentBryan P Kuns Work Phone: [facility] Work Phone: Payers DatePayer CategoryPayerPolicy [id number] Care (Private)[facility] .[id number] Private Health [id number] [id number]9-1481Woioyhp41-36-2077 [id number] 2..4.150858.24094582-35-6730Okzhecw Health Insurance [id number] 2..1.13879[id number] 2..1.030147.3.57[id number] 2..1.988583.3.57[id number] 2..1.754142.3.57[id number] 2..1.699278.3.57[id number] 2..1.095218.3.57[id number] 2.0.1.663294.3.57[id number] 2.0.1.019419.3.57[id number] 2.0.1.746962.3.57[id number] 2.0.1.555176.3.57[id number] 2.16.840.1.102479.3.57[id number] 2.16.840.1.687010.3.57[id number] 2.16.840.1.6[id number] 2.16.840.1.343188.3.579.2.531 [id number] 2.16.840.1.3[id number] 2.16.840.1.5[id number] 2.16.840.1.611769.3.579.2.531 Social History DateTypeDetailFacilityUnknown if ever smokedMilitary Health System [employer] Other Start: 06-19-2023 End: 79-07-0691Dwr Assigned At BirthNoshriners hospitals for children HASH Other Start: 06-19-2023 End: 70-19-0237Hwdcnszh useCaffeine useDiley Ridge Medical Center Work Phone: Start: 34-76-6971Jwcvkye smoking status NHISNever smoked tobaccoUnBluffton Hospital Work Phone: Start: 66-65-7005Yueiusr use and exposureSmokeless tobacco non-userUnBluffton Hospital Work Phone: Start: 46-27-0904Ejj Assigned At BirthNot on file [facility] Work Phone: Start: 06-09-2023 End: 08-87-6420Aawrmria to SARS-CoV-2 (event)Not sureUnBluffton HospitalStart: 04-16-2024 End: 05-62-0342Fjlhrcxeo beverage intakeCurrent drinker of alcohol (finding) [facility] Work Phone: Start: 17-39-9869VcgOjnvpkJypqfzrlbsMercy Health [facility] Clinical Notes 02-15-2015 to 01-14-2025 Note Date & OskfZsgoAcwjjdsx74-26-0768 History of Present illness Narrative* Shy Wolf [...] exam, discussion and plan. documented in this encounterPremier Health [facility] Work Phone: 1(513) 213-289908-08-2025 Instructions* Patient Instructions* Richelle Frey LPN - [...] through Care Everywhere. * Heart Healthy Diet (Mongolian) documented in this encounterPrem[facility] Work Phone: 1(892) 888-244407-01-2025 History of Present illness Narrative* Reuben Burns [...] in patient record. Reuben Burns MSN, JENNYFER, PMHNP-[facility] [place], [place] Please excuse any errors in grammar or translation related to this dictation. Voice recognition software was utilized to prepare this document. documented in this [facility] Work Phone: 1(966) 986-243107-01-2025 Instructions* Patient Instructions* JENNYFER Garsia - 12/07/2024 [...] Dr. Wolf as scheduled [facility]: 1(897) 558-376607-01-2025 Miscellaneous Notes* Addendum Note - JENNYFER Garsia - 12/07/2024 3:00 PM EDTAddended by: REUBEN BURNS on: 12/08/2024 02:08 PM Modules accepted: [facility] Work Phone: 1(407) 965-200807-01-2025 Note* Addendum Note - ARGELIA Garsia CNP - 12/07/2024 3:00 PM EDTAddended by: REUBEN BURNS on: 12/08/2024 02:08 PM Modules accepted: Orders [facility] Work Phone: 1(553) 181-379311-08-2024 History of Present illness Narrative* Shy Wolf [...] exam, discussion and plan. documented in this [facility] Work Phone: 1(765) 245-161611-08-2024 Instructions* Patient Instructions* Sherin Mendez LPN - [...] 9 month follow up documented in this [facility] Work Phone: 1(338) 208-181902-09-2024 Evaluation note* Encounter Date Diagnosis Assessment Notes Treatment Notes Treatment Clinical Notes Jul, PMR (polymyalgia rheumatica) (IC D-10 - M35.3) [facility] Other 02-06-2024 Evaluation note* Encounter Date Diagnosis Assessment Notes Treatment Notes Treatment Clinical Notes Jul, PMR (polymyalgia rheumatica) (IC D-10 - M35.3) [facility] Other 02-01-2024 Evaluation note* Encounter Date Diagnosis Assessment Notes Treatment Notes Treatment Clinical Notes Jul, Hypothyroidism (ICD-10 - E03.9) [facility] Other 01-29-2024 Evaluation note* Encounter Date Diagnosis Assessment Notes Treatment Notes Treatment Clinical Notes Jun, Hypothyroidism (ICD-10 - E03.9) Jun,Hyperthyroidism (ICD-10 - E05.90) [facility] Other 01-26-2024 Evaluation note* Encounter Date Diagnosis [...] medications in combination with eachother. Also discussed senior care steriod use in regards to her condition. [...] requires sooner she is welcome to call. [facility] Other 01-11-2024 Evaluation note* Encounter Date Diagnosis Assessment Notes Treatment Notes Treatment Clinical Notes Jun, PMR (polymyalgia rheumatica) ( D-10 - M35.3) [facility] Other 01-11-2024 History of Present illness Narrative* [...] is being tapered gradually Shy Wolf MD, [facility] Review of Systems All other [...] of Shy Wolf MD. [facility] Work Phone: 1([phone]) 397-498801-11-2024 Instructions* Patient Instructions* Yevgeniy Cortez MA - [...] time of your visit. [facility] Work Phone: 1(398) 417-948012-22-2023 Evaluation note* Encounter Date Diagnosis Assessment Notes [...] recommend the patient get the RSV vaccine. [facility] Other 12-20-2023 Evaluation note* Encounter Date Diagnosis Assessment Notes Treatment Notes Treatment Clinical Notes May, Hypertension (ICD-10 - I10) May,Hypothyroidism (ICD-10 - E03.9) [facility] Other 11-10-2023 Evaluation note* Encounter Date Diagnosis Assessment Notes Treatment Notes Treatment Clinical Notes Apr, PMR (polymyalgia rheumatica) (IC D-10 - M35.3) [facility] Other 09-22-2023 Evaluation note* Encounter Date Diagnosis Assessment Notes Treatment Notes Treatment Clinical Notes Feb, PMR (polymyalgia rheumatica) (IC D-10 - M35.3) She was encouraged to take 2.5mg daily. Patient is agreeable. Feb,Hypertension (ICD-10 - I10) Blood pressure is satisfactory, she is to follow with cardiology as scheduled. [facility] Other 08-21-2023 Evaluation note* Encounter Date Diagnosis Assessment Notes Treatment Notes Treatment Clinical Notes Jan, Hypertension (ICD-10 - I10) [facility] Other 06-30-2023 Evaluation note* Encounter Date Diagnosis [...] very [facility] She will see Dr. Wolf in three weeks therefore was advised to make sure she discusses the swelling with him and see what he would like to do. Patient is agreeable. [facility] Other 04-14-2023 Evaluation note* Encounter Date Diagnosis [...] tablets daily. We will continue to monitor. [facility] Other 03-08-2023 Evaluation note* Encounter Date Diagnosis Assessment Notes Treatment Notes Treatment Clinical Notes Aug, PMR (polymyalgia rheumatica) (IC D-10 - M35.3) [facility] Other 02-13-2023 Evaluation note* Encounter Date Diagnosis [...] states she has an upcoming appointment with student life coordinator and she will discuss making medication changes at that time. [facility] Other 11-09-2022 Evaluation note* Encounter Date Diagnosis [...] she can cut Apr,Hyperlipidemia (ICD-10 - E78.5) [facility] Other 11-02-2022 Evaluation note* Encounter Date Diagnosis Assessment Notes Treatment Notes Treatment Clinical Notes Apr, PMR (polymyalgia rheumatica) (IC D-10 - M35.3) [facility] Other 10-26-2022 Evaluation note* Encounter Date Diagnosis Assessment Notes Treatment Notes Treatment Clinical Notes Mar, Lumbar back pain (ICD-10 - M54.5 0) [facility] Other 09-20-2022 Evaluation note* Encounter Date Diagnosis Assessment Notes Treatment Notes Treatment Clinical Notes Feb, Elevated liver function tests (I CD-10 - R79.89) [facility] Other 09-16-2022 Evaluation note* Encounter Date Diagnosis Assessment Notes Treatment Notes Treatment Clinical Notes Feb, Acute pain of left shoulder (ICD -10 - M25.512) [place] [facility] report reviewed from 02/20/22 . The [...] pain (ICD-10 - R10.13) The patient advised [place] could be causing her GI upset , [...] month [place] at her next office visit. [facility] Other 09-08-2022 Evaluation note* Encounter Date Diagnosis [...] (ICD-10 - M85.80) Noted on Lumbar x-ray. [facility] Other 08-05-2022 Evaluation note* Encounter Date Diagnosis Assessment Notes Treatment Notes Treatment Clinical Notes Jan, COVID-19 (ICD-10 - U07.1) [facility] Other 08-05-2022 Evaluation note* Encounter Date Diagnosis Assessment Notes Treatment Notes Treatment Clinical Notes Jan, Cough (ICD-10 - R05.9) In house covid test is positive. Treatment plan discussed in TE. [facility] Other 07-14-2022 Evaluation note* Encounter Date Diagnosis Assessment Notes Treatment Notes Treatment Clinical Notes Dec, PMR (polymyalgia rheumatica) (IC D-10 - M35.3) [facility] Other 05-27-2022 Evaluation note* Encounter Date Diagnosis Assessment Notes Treatment Notes Treatment Clinical Notes October, PMR (polymyalgia rheumatica) (IC D-10 - M35.3) [facility] Other 04-25-2022 Evaluation note* Encounter Date Diagnosis [...] The patient encourged to continue following with student life coordinator annually in December as scheduled. I did forward a copy of most current blood work results . [facility] Other 04-04-2022 Evaluation note* Encounter Date Diagnosis Assessment Notes Treatment Notes Treatment Clinical Notes Sep, PMR (polymyalgia rheumatica) (IC D-10 - M35.3) Sep,Hypertension (ICD-10 - I10) [facility] Other 02-24-2022 Evaluation note* Encounter Date Diagnosis [...] if needed. We will continue to montior. [facility] Other 02-16-2022 Evaluation note* Encounter Date Diagnosis Assessment Notes Treatment Notes Treatment Clinical Notes Jul, PMR (polymyalgia rheumatica) (IC D-10 - M35.3) [facility] Other 11-30-2021 Evaluation note* Encounter Date Diagnosis Assessment Notes Treatment Notes Treatment Clinical Notes Apr, PMR (polymyalgia rheumatica) (IC D-10 - M35.3) [facility] Other 11-18-2021 Evaluation note* Encounter Date Diagnosis [...] Apr,Hypothyroidism (ICD-10 - E03.9) Blood work ordered. [facility] Other [id number] History general Narrative - Reported* Type Description Date Medical History [facility] Ybnzuet6020, 02-15-15-mammogram-negativeMedical History 01/20127963-ifkkgmpwoew-cyozhi, repeat in 3 yrsMedical Pspndny33/2017- colonoscopy- normalMedical Historyf/u with cardiology NOHCMedical HistoryECHO 09/2016Surgical HistoryAppendectomySurgical HistoryGallbladder RemovalSurgical HistoryOvarian Cyst RemovalSurgical HistoryCoccyx repairSurgical HistoryCataracts Bilateral EyesSurgical Historythyroidectomy Dr. Forbes10/14/2019Hospitalization History Childbirth [id number] HistorySee Above [facility] Other Evaluation noteNo [email or web address] Other Evaluation note* Diagnosis Aortic valve stenosis, etiology of cardiac valve disease unspecified Essential hypertension Unspecified essential hypertension Hyperlipidemia, unspecified hyperlipidemia type Never smoked any substance documented in this encounter [facility] Work Phone: Evaluation note* Diagnosis Aortic valve stenosis, etiology of cardiac valve disease unspecified- Primary Essential hypertension Unspecified essential hypertension Hyperlipidemia, unspecified hyperlipidemia type Never smoked any substance BMI 26.0-26.9,adult Hypothyroidism, unspecified type documented in this encounter [facility] Work Phone: Evaluation note* Diagnosis Nonrheumatic aortic valve stenosis Aortic valve stenosis, etiology of cardiac valve disease unspecified documented in this encounter [facility] Work Phone: Evaluation note* Diagnosis 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- Primary BMI 26.0-26.9,adult documented in this encounter [facility] Work Phone: Evaluation note* Diagnosis Aortic valve stenosis, etiology of cardiac valve disease unspecified documented in this encounter [facility] Work Phone: Evaluation note* Diagnosis Nonrheumatic aortic valve stenosis- Primary 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 Hyperlipidemia, unspecified hyperlipidemia type PMR (polymyalgia rheumatica) (Multi) Polymyalgia rheumatica Hypothyroidism, unspecified type BMI 27.0-27.9,adult Never smoked any substance Overweight documented in this encounter [facility] Work Phone: Reason for visit Narrative* CV Imaging (Routine) - AuthorizedSpecialtyDiagnoses / ProceduresReferred By ContactReferred To ContactCardiology Diagnoses Aortic valve stenosis, etiology of cardiac valve disease unspecified Procedures Transthoracic Echo Complete NH ECHO TTHRC R-T 2D W/WOM-MODE COMPL SPEC&COLR D Shy Wolf MD [address] [facility] [address], [address] [address] Phone: tel: fax: Referral IDStatusReasonStart DateExpiration DateVisits RequestedVisits [id number] Perform Procedure [facility] Work Phone: Chief Complaint * [...] being tapered gradually * Shy Wolf MD, [facility] * LAVONNE VILLATORO is being [...] PMR (polymyalgia rhe umatica) (M35.3) Referral Organization [facility] Referring Provider First Name Suhas Referring Provider Last Name Ugo Referring Provider Specialty Family Prac sukhjinder Referred Organization [facility] Referred Address [address] [place], [place],[address] Referred Provider Specialty Rheumatology Referral Priority Routine General Notes Zaida Tinsley 10:11:01 AM >received today, completed CC referral form and faxed to their referring physicians department. Patient will be contacted by the CC to schedule her appointment. SpecialtyDiagnoses / ProceduresReferred By ContactReferred To ContactCardiology Diagnoses Aortic valve stenosis, etiology of cardiac valve disease unspecified Procedures Transthoracic Echo (TTE) Complete NH ECHO TTHRC R-T 2D W/WOM-MODE COMPL SPEC&COLR D Shy Wolf MD [address] [place] [address] 2, Nishant [address] [place] [address] Referral IDStatusReasonStmorrisville DateExpiration DateVisits RequestedVisits [id number] Review Perform Procedure [id number] / ProceduresReferred By ContactReferred To ContactCardiology Diagnoses Aortic valve stenosis, etiology of cardiac valve disease unspecified Procedures Follow Up In Cardiology Shy Wolf MD [address] [place] [address] 2, [address] [address] Shy Wolf MD [address] [facility] [address], [address] [address] Referral [facility]Status[facility] DateExpiration DateVisits RequestedVisits [id number] Additional Source Comments REASON FOR VISIT (unrecogniz ed section and content) ReasonCommentsFollow-up9 month, echocardiogram resultsSpecialtyDiagnoses / ProceduresReferred By ContactReferred To ContactCardiology Diagnoses Aortic valve stenosis, etiology of cardiac valve disease unspecified Procedures Follow Up In Cardiology Shy Wolf MD [address] [place] [address], [address] [address] Phone: tel: fax: Shy Wolf MD [address] [place] [address], [place] [id number] Phone: tel: fax: Referral IDStatusReasonStart DateExpiration DateVisits RequestedVisits [id number] CommentsFollow-va1fAnmbiqfk IDStatusReasonStart DateExpiration DateVisits RequestedVisits [id number] Diagnoses / ProceduresReferred By ContactReferred To ContactCardiology Diagnoses Nonrheumatic aortic valve stenosis Procedures Transthoracic Echo (TTE) Complete NH ECHO TRANSTHORC R-T 2D W/WO M-MODE REC F-UP/LMTD NH DOP ECHOCARD COLOR FLOW VELOCITY MAPPING NH DOP ECHOCARD PULSE WAVE W/SPECTRAL F-UP/LMTD STD Shy Wolf MD [address] [place] [id number] Referral IDStatusReasonStart DateExpiration DateVisits RequestedVisits [id number] Perform Procedure /[id number]-yw ClearancePOC for spinal cord stimulator, scheduled 12.13.[address] Weston. INFORMATION SOURCE (unrecogn ized section and content) DATE CREATED AUTHOR 03/06/2022 [facility] DATE CREATED AUTHOR AUTHOR'S ORGANIZ ATION 12/25/2022 [facility] DATE CREATED AUTHOR AUTHOR'S ORGANIZ ATION 12/25/2022 [employer] DATE CREATED AUTHOR AUTHOR'S ORGANIZ ATION 03/03/2023 [facility] DATE CREATED AUTHOR AUTHOR'S ORGANIZ ATION 07/29/2024 [facility] DATE CREATED AUTHOR AUTHOR'S ORGANIZ ATION 12/25/2024 [facility] DATE CREATED AUTHOR AUTHOR'S ORGANIZ ATION 01/16/2025 [facility] DATE CREATED AUTHOR AUTHOR'S ORGANIZ ATION 02/23/2025 [facility] Care Teams (unrecognized sec tion and content) Team MemberRelationshipSpecialtyStart DateEnd Date Suhas Garrett DO PCP - General06/09/99Team MemberRelationshipSpecialtyStart DateEnd Date Suhas Garrett DO [address] [place] [address] PCP - [facility]01/30/24Team MemberRelationshipSpecialtyStart DateEnd Date Suhas Garrett DO [address] [place] [address] [facility]/30/24Team MemberRelationshipSpecialtyStart DateEnd Date Suhas Garrett DO [address] [place] [address] PCP - GeneralFamily Medicine01/30/24Team MemberRelationshipSpecialtyStart DateEnd Date Suhas Garrett DO [address] [place] [address] PCP - GeneralFamily Medicine01/30/24Team MemberRelationshipSpecialtyStart DateEnd Date Suhas Garrett DO [address] [place] [address] PCP - GeneralFamily Medicine01/30/24 FOR RECORDS PERTAINING [...] BE BASED ON THE PRIMARY CLINICAL RECORDS. [facility] [employer] [facility]. provides no warranty or guarantee of the accuracy or completeness of information in this document.
[2025-04-09 05:55] LABS: Hematocrit 38.9 % (36.0-48.0); Hemoglobin 13.0 g/dL (12.0-16.0); Immature Granulocytes Abs Auto 0.04 10^3/uL (0.00-0.03); Immature Granulocytes Pct Auto 0.6 % (0.0-0.5); Lymphocytes Absolute Auto 2.7 10^3/uL (1.2-3.8); Mean Corpuscular HGB Conc 33.4 g/dL (29.9-35.2); Mean Corpuscular Hemoglobin 33.9 pg (26.7-34.0); Mean Corpuscular Volume 101.3 fL (81.0-99.0); Platelet Count 277 10^3/uL (150-450); Red Blood Count 3.84 10^6/uL (4.20-5.40); White Blood Count 6.6 10^3/uL (4.0-11.0)
[2025-04-09 06:05] LABS: Glucose Urine UA NEGATIVE (NEGATIVE)
[2025-04-09 06:08] LABS: Alanine Aminotransferase 76 U/L (14-59); Albumin Globulin Ratio 0.9; Albumin Level 3.2 g/dL (3.4-5.0); Alkaline Phosphatase 225 U/L (46-116); Amylase 161 U/L (25-115); Anion Gap 10.1; Aspartate Amino Transferase 22 U/L (15-37); Blood Urea Nitrogen 21.0 mg/dL (7.0-18.0); Calcium 9.3 mg/dL (8.5-10.1); Carbon Dioxide 29.0 mmol/L (21.0-32.0); Chloride 107 mmol/L (98-107); Estimated GFR (African America >60 (>=60 mL/min/1.73m^2); Estimated GFR (Non-African Ame >60 (>=60 mL/min/1.73m^2); Globulin 3.5 g/dL; Glucose 96 mg/dL (74-106); Lipase 39.0 U/L (16.0-77.0); Potassium 4.1 mmol/L (3.5-5.1); Sodium 142 mmol/L (136-145); Total Protein 6.7 g/dL (6.4-8.2)
[2025-04-09 06:09] LABS: Cast Seen? NONE SEEN #/LPF (NONE SEEN); Crystals Seen? None Seen #/HPF (None Seen); Urine Culture Indicated NO
[2025-04-09 07:19] VITALS: BP 152/92
[2025-04-09 08:56] VITALS: BP 165/70; PULSE 56; O2SAT 98
== END 2025-04-09 09:28 | disposition home or self-care (01) ==
PROVIDERS: Emergency Provider Emergency Medicine; PCP Family Medicine
DX: R10.84 Generalized abdominal pain (principal); K59.00 Constipation, unspecified; R60.0 Localized edema; Z98.890 Other specified postprocedural states; Z96.82 Presence of neurostimulator
CPT/HCPCS: 36415; 74177; 80048; 80053; 80074; 80076; 81001; 82150; 83690; 85025; 85652; 86140; 99284; Q9967

== ENCOUNTER 2025-04-09 09:41 | Outpatient (OUT) | payer MEDICARE, OTHER, SELFPAY ==
--- OUTSIDE RECORDS SUMMARY | 2025-04-09 09:45 | XMS_ITS | CCD ---
Author Organization [facility] CliniSynd Care Team Providers Care Etl Manager Name Role Phone Suhas Garrett Unavailable [...] of OnsetReaction(s) Facility (20 sources)Alendronate; Translations: [Fosamax]Drug Nlqmjkq57-16-0486CrslsigOhioHealth [facility] Repository (20 sources)Amoxicillin; Translations: [amoxicillin]Drug Zrxqsyi47-52-7378utyow [place] [employer] Other (20 sources)Phenytoin; Translations: [Dilantin CAPS]Drug Gwtrqyz47-99-0840Lpvs [place] [employer] Other (20 sources)Valproate; Translations: [Depakote ER TB24]Drug AllergyUnknowFranciscan Health [employer] Other (1 source)AlendronateDrug AllergyThe [facility] Repository (1 source)AmoxicillinDrug AllergyOhio State [facility] Repository (1 source)PhenytoinDrug AllergyOhio State University [facility] Repository (1 source)ValproateDrug AllergyThe [facility] Repository (20 sources)Acetaminophen / HYDROcodoneDrug Allergyelevated liver enzymesPeacehealth Southwest Medical Center [employer] Other (6 sources)AlendronateDrug Elhdsjo31-55-9217FgatyhcCincinnati [facility] (8 sources)HYDROcodone; Translations: [HYDROCODONE]Drug Ithoeui82-50-2683TDPeoples Hospital Work Phone: (8 sources)Valproate; Translations: [VALPROIC ACID]Drug Hqkensh66-20-6053IbgcggdCorey Hospital Work Phone: (1 source)AcetaminophenDrug Ewnbblq89-30-7623YatvxhbyhMercy Hospital Repository (1 source)AlendronateDrug Bpxbtbx89-97-1591QkqkgowthMercy Hospital Repository (1 source)AmoxicillinDrug Pbeknci81-99-9423HphqweexsMercy Hospital Repository (1 source)HYDROcodoneDrug Evhhsbs35-36-4470HarriyabrMercy Hospital Repository (1 source)PhenytoinDrug Egfnytf92-15-5038ScyvfrcvmMercy Hospital Repository (1 source)ValproateDrug Dwpaqaq43-50-4885PohzwxaocMercy Hospital Repository (5 sources)Valproate; Translations: [DIVALPROEX]Drug Mgauynp51-18-5305ZyudqThe [facility] Hospital [facility] Work Phone: Medications Current Medications MedicationDrug Class(es)DatesSig [...] mg oral tablet (20 sources)Nonsteroidal Anti-inflammatory DrugStart: 43-80-2028sron 1 tablet by mouth twice daily at mealtime as neededIbuprofen 600 MG 1 tablet with food or milk as needed Orally Twice a day as needed with food Jan, ActiveStart: 72-45-8873rklp 1 tablet by mouth three times daily at mealtime as needed Ibuprofen 600 MG 1 tablet with food or milk as needed Orally TID PRN with food Jan, Not-Takinglevothyroxine sodium 0.1 mg oral tablet (20 sources)l-ThyroxineStart: 42-10-6735vqvy 1 tablet by mouth once daily levothyroxine [...] ActivepredniSONE 10 mg oral tablet (20 sources)Start: 05-39-2946fdub 1 tablet by mouth once dailypredniSONE (Deltasone) 10 mg tablet Take 1 tablet (10 mg) by mouth once daily. 12/09/2024 ActiveStart: 32-06-4679radk 2 tablets by mouth once dailypredniSONE 10 MG 2 tablets x 7 days, 1 tablet x 7 days, then 1/2 tablet or 5mg daily thereafter Orally as directed Jun, ActiveStart: 89-57-3133rnlo 1 tablet by mouth every twenty-four hourspredniSONE 20 MG 1 tablet Orally Once a day for 10 days Apr, ActiveStart: 51-76-8734zpex 1 tablet by mouth every other day predniSONE 2.5 MG 1 tablet Orally alternating every other day with 5mg Nov, ActiveStart: 28-56-4333sxep 1 tablet by mouth every twenty-four hours predniSONE 2.5 MG 1 tablet Orally Once a day Apr, ActiveStart: 85-57-3743rupj 1 tablet by mouth every twenty-four hourspredniSONE 10 MG 1 tablet Orally Once a day for 90 days Apr, ActiveStart: 30-67-7228nbdw 1 tablet by mouth every twenty-four hourspredniSONE 20 MG 1 tablet Orally Once a day for 30 day(s) Apr, ActiveStart: 14-53-5890iphjsaNBNW 20 MG 1 tablet with food or milk Orally 1 tab twice a day x 5 days , 1 tab every day x 5days for 10 days Feb, ActiveStart: 96-19-0707toxx 1 tablet by mouth at mealtime, then take 1 tablet by mouth twice daily, then take 1 tablet by mouth once dailypredniSONE 20 MG 1 tablet with food or milk Orally 1 tab twice a day x 5 days , 1 tab once a day X 5 days Jan, ActiveStart: 64-18-5301yivi 1 tablet by mouth every other daypredniSONE 5 MG 1 tablet Orally alternating every other day with 2.5mg Apr, ActiveStart: 02-22-2020 End: 17-11-6316zgykcsPJMJ (Deltasone) 5 mg tablet Take 1 tablet (5 mg) by mouth once daily. Alternating 2.5 tab 11/02/2021 01/14/2025 Discontinued (Dose adjustment)Start: 46-86-1258biic 1 tablet by mouth every twenty-four hours predniSONE 2.5 MG 1 tablet Orally Once a day Feb, ActiveStart: 61-58-1205sjoe 1.5 tablets by mouth every twenty-four hourspredniSONE 5 MG 1.5 tablets Orally Once a day Feb, ActivetraMADol hydrochloride 50 mg oral tablet (5 sources)Opioid AgonistStart: 93-27-4776kbro 1 tablet by mouth every eight hourstraMADol HCl 50 MG 1 tablet as needed Orally tid Jun, ActiveStart: 50-62-5115ycun 1 tablet by mouth every twenty-four hourstraMADol HCl 50 MG 1 tablet as needed Orally Once a day Jun, ActiveTylenol Arthritis Pain 650 MG (20 sources)Tylenol Arthritis Pain 650 MG as directed Orally Not-TakingTylenol Arthritis Pain 650 MG as directed Orally Active Completed/Discontinued Medications MedicationDrug Class(es)DatesSig (Normalized)Sig (Original)amLODIPine 10 mg oral tablet (20 sources)Dihydropyridine Calcium Channel BlockerStart: 26-06-3606exic 1 tablet by mouth every twenty-four hoursNorvasc 5 MG 1 tablet Orally Once a day for 90 day(s) May, ActiveStart: 06-03-2017 End: 45-68-6251nrwd 1 tablet by mouth once dailyamLODIPine (Norvasc) 10 mg tablet Take 1 tablet (10 mg) by mouth once daily. 12/13/2021 12/07/2024 D iscontinued (Dose adjustment)calcium carbonate 1500 mg oral tablet (11 sources) End: 21-64-2595dygx 1 tablet by mouth once dailycalcium carbonate [...] 24-Dec-2022 DO ActiveFish Oils (4 sources) End: 28-29-8899dtqb 1 capsule by mouth once dailyomega-3 (Fish [...] Not-Takingmelatonin 5 mg oral tablet (20 sources)Start: 12-39-7006pvse 1 tablet by mouth every twenty-four hours Melatonin 5 MG 1 tablet in the evening Orally Once a day Sep, Not-Taking/PRNmethylPREDNISolone (20 sources)CorticosteroidStart: 20-95-1905YILW-MEDROL 41 - 125 mg Jan, 125 mgMulti Vitamin Oral Tablet (7 sources)take 1 tablet by mouth once dailyMulti Vitamin Oral Tablet TAKE 1 TABLET DAILY. Quantity: 0 Refills: 0 Ordered: 13-Dec-2021 DO ActiveOmega 3 500 CAPS (4 sources)Marty 3 500 CAPS TAKE 1 CAPSULE Daily Quantity: 0 Refills: 0 Ordered: 13-Dec-2021 DO Activeoxycodone HCl/acetaminophen (OXYCODONE-ACETAMINOPHEN ORAL) (2 sources)Start: 02-23-2024 End: 43-41-3090csoohoyvb HCl/acetaminophen (OXYCODONE-ACETAMINOPHEN ORAL) Take by mouth. 02/23/2024 12/07/2024 Discontinued (Therapy completed)Start: 40-73-4511zrpvsdqgi HCl/acetaminophen (OXYCODONE-ACETAMINOPHEN ORAL) Take by mouth. 02/23/2024 ActivetraZODone hydrochloride 50 mg oral tablet (16 sources)Serotonin Reuptake InhibitorStart: 27-32-9910lsob 1 tablet by mouth every twenty-four hourstraZODone HCl 50 MG 1 tablet at bedtime as needed Orally Once a day prn Jul, Not-Taking/PRN Problems Active Problems Problem ClassificationProblemDateDocumented DateEpisodic/ChronicAbdominal pain (20 sources)Generalized abdominal pain; Translations: [Generalized abdominal pain]Onset: 02-22-2022 Resolved: 14-82-5850AzvxusejUkueoiwzxgqkhb/social admission (20 sources)Advance directive discussed with patient; Translations: [Other specified counseling]EpisodicCoronary atherosclerosis and other heart disease (20 sources)Coronary arteriosclerosis; 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 [place] coronary artery without angina pectoris]Onset: 09-03-2023 ChronicDisorders of lipid metabolism (20 sources)Hyperlipidemia; Translations: [Hyperlipidemia, unspecified]Onset: 04-26-2021 Resolved: 10-32-9715PfmtknzPimatljuo hypertension (20 sources)Hypertensive disorder; Translations: [Essential (primary) hypertension]Onset: 09-10-2021 Resolved: 95-88-8515TxrsddbOwzcr valve disorders (20 sources)Aortic valve stenosis; Translations: [Aortic valve disorders]Onset: 55-06-3383OybjdtyTubehqxjqsy deficiencies (1 source)Vitamin D deficiency, unspecified; Translations: [Vitamin D deficiency, unspecified]Onset: 90-05-3992IcistjrXnaqwbdlxfur (1 source)Osteoporosis; Translations: [Age-related osteoporosis without current pathological fracture]ChronicOther aftercare (1 source)Other fdc (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; Translations: [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 THERAPY]Onset: 55-31-8506KpzwcpmnMwlyk bone disease and musculoskeletal deformities (20 sources)Pain of left shoulder blade; Translations: [Other specified disorders of bone, shoulder]EpisodicOther bone disease and musculoskeletal deformities (20 sources)Osteopenia; Translations: [Other specified disorders of bone density and structure, multiple sites]EpisodicOther circulatory disease (20 sources)Cardiovascular symptoms; Translations: [Other specified symptoms and signs involving the circulatory and respiratory systems]EpisodicOther connective tissue disease (20 sources)Polymyalgia rheumatica; Translations: [Polymyalgia rheumatica]Onset: 539918-20-9474KzacxmyBhkrs connective tissue disease (20 sources)Polymyalgia rheumatica; Translations: [Polymyalgia rheumatica]Onset: 04-26-2021 Resolved: 29-97-5340DexpnlfVnbak connective tissue disease (1 source)Other muscle spasm; Translations: [OTHER MUSCLE SPASM]Onset: 82-48-7422AugwhoqgMbzcp liver diseases (20 sources)Disease of liver; Translations: [Liver disease, unspecified]Chronic Other lower respiratory disease (20 sources)Radiologic increased density of lung; Translations: [Other disorders of lung]EpisodicOther non-epithelial cancer of skin (20 sources)Basal cell carcinoma of skin; Translations: [Basal cell carcinoma of skin, unspecified]EpisodicOther non-traumatic joint disorders (6 sources)Pain in left shoulder; Translations: [PAIN IN LEFT SHOULDER]Onset: 02-20-2022 Resolved: 54-95-0690ZrtywyhuAcsrh non-traumatic joint disorders (20 sources)Shoulder pain; Translations: [Pain in left shoulder]EpisodicOther nutritional; endocrine; and metabolic disorders (14 sources)Overweight in adulthood with body mass index of 25 or more but less than 30; Translations: [Overweight]Onset: 872418-72-5407ZigfnypuYyzno nutritional; endocrine; and metabolic disorders (1 source)Overweight; Translations: [Overweight]00-73-9787DhmipatiUoowp nutritional; endocrine; and metabolic disorders (2 sources)Body mass index (BMI) 27.0-27.9, adult; Translations: [Body mass index (BMI) 27.0-27.9, adult]Onset: 09-09-8112ZpzubitmQihti screening for suspected conditions (not mental disorders or infectious disease) (20 sources)Other specified abnormal findings of blood chemistry; Translations: [Elevated liver function tests]Onset: 02-26-2022 Resolved: 62-54-6276XhzffnwpWpsnxlxg codes; unclassified (20 sources)Insomnia; Translations: [Insomnia, unspecified]EpisodicResidual codes; unclassified (20 sources)Family history of malignant neoplasm of gastrointestinal tract; Translations: [Family history of malignant neoplasm of digestive organs]Episodic Residual codes; unclassified (20 sources)Difficulty sleeping ; Translations: [Sleep disorder, unspecified] EpisodicResidual codes; unclassified (3 sources)Insomnia, unspecifiedOnset: 10-01-2021 Resolved: 14-17-3929CyxqyzagEnfjshib codes; unclassified (9 sources)Never smoked any substance; Translations: [Other specified health status]Onset: 640963-71-1520QugfuobbTwurvitt codes; unclassified (2 sources)Other specified health status; Translations: [Other specified health status]Onset: 90-79-1538BueixvkqJigftxpnveq; intervertebral disc disorders; other back problems (13 sources)Low back pain; Translations: [Lumbar back pain]EpisodicSprains and strains (20 sources)Strain of muscle and/or tendon of lower leg; Translations: [Strain of unspecified muscle and tendonat ankle and foot level, left foot, subsequent encounter]EpisodicThyroid disorders (20 sources)Hypothyroidism; Translations: [Hypothyroidism, unspecified]Onset: 04-26-2021 Resolved: 79-01-8931Egtjgaf Past or Other Problems Problem ClassificationProblemDateDocumented DateEpisodic/ChronicConditions associated with dizziness or vertigo (2 sources)Dizziness and giddiness; Translations: [Dizziness and giddiness] Onset: 02-14-2022 Resolved: 46-01-9846IndptpzdOwnry valve disorders (20 sources)Heart murmur; Translations: [Cardiac murmur, unspecified]Onset: 10-01-2021 Resolved: 98-72-3319IivhoppiXdzjm acquired deformities (1 source)Spondylolisthesis, lumbar regionOnset: 02-14-2022 Resolved: 19-87-1594KwenqldqJmeyw bone disease and musculoskeletal deformities (1 source)Other specified disorders of bone density and structure, unspecified siteOnset: 02-14-2022 Resolved: 77-71-5378MqcstmofDchnz bone disease and musculoskeletal deformities (1 source)Other specified disorders of bone, shoulderOnset: 02-22-2022 Resolved: 95-38-4222KjcofpriNjbkh bone disease and musculoskeletal deformities (1 source)Other specified disorders of bone density and structure, multiple sitesOnset: 02-22-2022 Resolved: 05-94-2737DhgrgeyzSgtbl circulatory disease (20 sources)Carotid bruit; Translations: [Other symptoms involving cardiovascular system]Onset: 06-04-2023 Resolved: 668611-12-3328WpgcomdiRcffm circulatory disease (1 source)Other specified symptoms and signs involving the circulatory and respiratory systems; Translations:[Other specified symptoms and signs involving the circulatory and respiratory systems]Onset: 25-70-9478IbyrioxzAddbm liver diseases (1 source)Abnormal levels of other serum enzymes; Translations: [Abnormal levels of other serum enzymes]Onset: 19-25-1863GkycxajoNxues nutritional; endocrine; and metabolic disorders (2 sources)Body mass index (BMI) 26.0-26.9, adult; Translations: [Body mass index (BMI) 26.0-26.9, adult]Onset: 14-75-6535AqrntcsqQsewa skin disorders (1 source)Localized swelling, mass and lump, headOnset: 04-26-2021 Resolved: 03-91-8560DzqvxgioErhkhcxx codes; unclassified (1 source)Sleep disorder, unspecifiedOnset: 08-02-2021 Resolved: 89-02-8366QfwzxlcmCyracfoi codes; unclassified (1 source)Asymptomatic menopausal stateOnset: 02-14-2022 Resolved: 71-99-5308LohljrrkVmuywukjxcmm (7 sources)Never smoked tobacco; Translations: [Never smoker]Unclassified (1 source)Cough R05.9Onset: 01-11-2022 Resolved: 93-67-3806Agioddtclbdu (3 sources)Lumbar back pain M54.50Onset: 02-14-2022 Resolved: 19-69-4276Eqdgigadxqwu (1 source)History of COVID-19 Z86.16Onset: 02-14-2022 Resolved: 99-55-9944Vhybadnrvfud (10 sources)Lumbar back pain; Translations: [Lumbar back pain]Unclassified (1 source)Vaccine counseling Z71.85Unclassified (6 sources)Onset: 06-19-2023 Resolved: Viral infection (20 sources)Disease caused by 2019-nCoV; Translations: [COVID-19]Onset: 01-11-2022 Resolved: 01-11-2022 Results Test NameValueInterpretationReference RangeFacilityTRANSTHORACIC ECHO (TTE) COMPLETEon 52-82-7358ZXDBAOWSXBWXZ ECHO (TTE) COMPLETENortRandolph Health [address], [address], [place] [address] TRANSTHORACIC ECHOCARDIOGRAM REPORT Patient Name: LAVONNE VILLATORO Reading Physician: [id number] Shy Wolf MD, [facility] Study Date: 12/21/2024 Ordering Provider: [id number] SHY WOLF MRN/PID: [id number] Fellow: Nurse: Date of /Age: 3 1935 / years Equity Analyst: Sheridan Lemus RDCS, T Gender Assigned at F Additional Staff: : Height: 157.48 cm Admit Date: Weight: 65.77 kg Admission Status: Outpatient BSA / BMI: 1.67 m2 / 26.52 Department Location: [facility] kg/m2 [place] Blood Pressure: 146 /68 mmHg Study Type: TRANSTHORACIC ECHO (TTE) COMPLETE Diagnosis/ICD: Nonrheumatic aortic (valve) stenosis-I35.0 Indication: HTN, Hyperlipidemia, 2/6 Systolic Murmur, Hypothyroid CPT Codes: Echo Complete w Full Doppler-38535 Study Detail: The following Echo studies were [...] AoV Area,Vmax: 0.85 cm (more content not included)...[facility] Transthoracicon 26-79-2227Ghgndi Valve Area by Continuity of Peak Velocity0.85 gx1PonyeeqwvyTriHealth Work Phone: [phone] Valve Area by Continuity of VTI0.9 cm2 [facility] Work Phone: [phone] mn lckr27ztBcUwwhgirnfeMercy Health [facility] Hospital Work Phone: [phone] pk flls82nsMzSkcgrtewukMercy Health Lorain Hospital Work Phone: [phone] pk vel3.27 m/[facility] Work Phone: [phone] vol index A/L43.4 ml/o8XlemrpgujpMercy Health Lorain Hospital Work Phone: [phone] A4C EF76.9UnMercy Health Lorain Hospital Work Phone: [phone] Biplane EF71 %[facility] Work Phone: [phone] EF68 %[facility] Work Phone: [phone] cmUnMercy Health Lorain Hospital Work Phone: [phone] diam1.89 cmUnMercy Health Lorain Hospital Work Phone: [phone] avg E/e' ratio15.93UnMercy Health Lorain Hospital Work Phone: [phone] E/A lmfww7LszyaqcspfMercy Health Lorain Hospital Work Phone: [phone] free wall pk S'11.98 cm/[facility] Work Phone: [phone]y Health Lor[facility] Hospital Work Phone: [phone] annular plane systolic excursion2.4 cm [facility] Work Phone: [address], [address] [place] [address] TRANSTHORACIC ECHOCARDIOGRAM REPORT Patient Name: LAVONNE Bahena Physician: [id number] Shy Wolf MD, [facility] Study Date: 12/21/2024 Ordering Provider: [id number] SHY WOLF MRN/PID: [id number] Fellow: Nurse: Date of /Age: 3 1935 / 89 years Equity Analyst: Sheridan Lemus RDCS, RVT Gender Assigned at F Additional Staff: : Height: 157.48 cm Admit Date: Weight: 65.77 kg Admission Status: Outpatient BSA / BMI: 1.67 m2 / 26.52 Department Location: [facility] Heart kg/m2 [place] Blood Pressure: 146 /68 mmHg Study Type: TRANSTHORACIC ECHO (TTE) COMPLETE Diagnosis/ICD: Nonrheumatic aortic (valve) stenosis-I35.0 Indication: HTN, Hyperlipidemia, 2/6 Systolic Murmur, Hypothyroid CPT Codes: Echo Complete w Full Doppler-52002 Study Detail: The following Echo studies were [...] content not included)...Shy Kenney MD - 12/21/[address] [facility] [address], [address], [place] [address] TRANSTHORACIC ECHOCARDIOGRAM REPORT Patient Name: LAVONNE VILLATORO Reading Physician: [id number] Shy Wolf MD, [facility] Study Date: 12/21/2024 Ordering Provider: [id number] SHY WOLF MRN/PID: [id number] Fellow: Nurse: Date of /Age: 3 1935 / 89 years Equity Analyst: Sheridan Lemus RDCS, RVT Gender Assigned at F Additional Staff: : Height: 157.48 cm Admit Date: Weight: 65.77 kg Admission Status: Outpatient BSA / BMI: 1.67 m2 / 26.52 Department Location: [facility] kg/m2 [place] Blood Pressure: 146 /68 mmHg Study Type: TRANSTHORACIC ECHO (TTE) COMPLETE Diagnosis/ICD: Nonrheumatic aortic (valve) stenosis-I35.0 Indication: HTN, Hyperlipidemia, 2/6 Systolic Murmur, Hypothyroid CPT Codes: Echo Complete w Full Doppler-58732 Study Detail: The following Echo studies were [...] cm (18-25cm) LVOT VTI: (more content not included)...[facility] Work Phone: UnMer[facility] Work Phone: Complete Blood Count Auto Diffon 25-32-8306Myzjxijdy (Bld) [#/Vol]0.1 10*3/uLNormal0.0-0.2The [facility] Physician GroupComment on above:Performed By: #### [id number], CMP, TSH3, LIPID, CBC, T4F, ESR #### [facility] [address] [place] [address] USABasophils/100 WBC (Bld)1.1 %Normal.The [facility] Physician GroupComment on above:Performed By: #### [id number], CMP, TSH3, LIPID, CBC, T4F, ESR #### [place] [address] USAEosinophils (Bld) [#/Vol]0.1 10*3/uLNormal0.0-0.45The [facility] Physician GroupComment on above:Performed By: #### [id number], CMP, TSH3, LIPID, CBC, T4F, ESR #### [place] [address] USAEosinophils/100 WBC (Bld)2.2 %Normal.The [facility] Physician GroupComment on above:Performed By: #### [id number], CMP, TSH3, LIPID, CBC, T4F, ESR #### [place] [address] USAErythrocyte distribution width (RBC) [Ratio]13.5 %Normal 11.9-15.3The [facility] Physician GroupComment on above:Performed By: #### [id number], CMP, TSH3, LIPID, CBC, T4F, ESR #### [place] [address] USAHematocrit (Bld) [Volume fraction]37.9 %Traifl96.0-46.4The [facility] Physician GroupComment on above:Performed By: #### [id number], CMP, TSH3, LIPID, CBC, T4F, ESR #### [place] [address] USAHemoglobin (Bld) [Mass/Vol]12.9 g/dIZfgtuj57.8-15.4The [facility] Physician GroupComment on above:Performed By: #### [id number], CMP, TSH3, LIPID, CBC, T4F, ESR #### [place] [address] USALymphocytes (Bld) [#/Vol]2.2 10*3/uLNormal1.00-4.8The [facility] Physician GroupComment on above:Performed By: #### [id number], CMP, TSH3, LIPID, CBC, T4F, ESR #### [place] [address] USALymphocytes/100 WBC (Bld)34.3 %Normal.The [facility] Physician GroupComment on above:Performed By: #### [id number], CMP, TSH3, LIPID, CBC, T4F, ESR #### [address] (RBC) [Entitic mass]33.5 qrDvpkmd27.7-34.3The [facility] Physician GroupComment on above:Performed By: #### [id number], CMP, TSH3, LIPID, CBC, T4F, ESR #### [address] (RBC) [Entitic vol]98.4 wIWdsayj65-082Lzk [facility] Physician GroupComment on above:Performed By: #### [id number], CMP, TSH3, LIPID, CBC, T4F, ESR #### [place] [address] USAMean Corpuscular HGB Conc34.1 g/nVBpfluy89.0-35.0The [facility] Physician GroupComment on above:Performed By: #### [id number], CMP, TSH3, LIPID, CBC, T4F, ESR #### [place] [address] USAMonocytes (Bld) [#/Vol]0.6 10*3/uLNormal0.0-0.8The [facility] Physician GroupComment on above:Performed By: #### [id number], CMP, TSH3, LIPID, CBC, T4F, ESR #### [place] [address] USAMonocytes/100 WBC (Bld)9.8 %Normal.The [facility] Physician GroupComment on above:Performed By: #### [id number], CMP, TSH3, LIPID, CBC, T4F, ESR #### [facility] [address] [place] [address] USANeutrophils (Bld) [#/Vol]3.4 10*3/uLNormal1.8-7.7The [facility] Physician GroupComment on above:Performed By: #### [id number], CMP, TSH3, LIPID, CBC, T4F, ESR #### [place] [address] USANeutrophils/100 WBC (Bld)52.6 %Normal.The [facility] Physician GroupComment on above:Performed By: #### [id number], CMP, TSH3, LIPID, CBC, T4F, ESR #### [place] [address] USANRBC%0.3 /100{WBC}Normal0-0.5The [facility] Comment on above:Performed By: #### [id number], CMP, TSH3, LIPID, CBC, T4F, ESR #### [place] [address] USAPlatelet mean volume (Bld) [Entitic vol]9.3 fLNormal 6.3-10.7The [facility] Physician GroupComment on above:Performed By: #### [id number], CMP, TSH3, LIPID, CBC, T4F, ESR #### [place] [address] USAPlatelets (Bld) [#/Vol]208 10*3/bUPsbwih155-352Ptx [facility] Physician GroupComment on above:Performed By: #### [id number], CMP, TSH3, LIPID, CBC, T4F, ESR #### [place] [address] USARBC (Bld) [#/Vol]3.85 10*6/uLNormal3.60-5.00The [facility] Physician GroupComment on above:Performed By: #### [id number], CMP, TSH3, LIPID, CBC, T4F, ESR #### [place] [id number] USAWBC (Bld) [#/Vol]6.6 10*3/uLNormal3.8-11.6The [facility] Physician GroupComment on above:Performed By: #### [id number], CMP, TSH3, LIPID, CBC, T4F, ESR #### [place] [address] USAComprehensive Metabolic Panelon 34-92-6313Ttlgskq [Mass/Vol]3.7 g/dLNormal3.5-5.7The [facility] Physician GroupComment on above: Performed By: #### [id number], CMP, TSH3, LIPID, CBC, T4F, ESR #### [place] [address] USAAlbumin/Globulin [Mass ratio]1.9 {ratio}NormalThe [facility]ly [facility] Physician GroupComment on above:Performed By: #### [id number], CMP, TSH3, LIPID, CBC, T4F, ESR #### [place] [address] USAALP [Catalytic activity/Vol]62 U/YLteyqm20-035Lsu [facility] Physician GroupComment on above:Performed By: #### [id number], CMP, TSH3, LIPID, CBC, T4F, ESR #### [place] [address] USAALT [Catalytic activity/Vol]21 U/LNormal7-52The [facility] Physician GroupComment on above:Performed By: #### [id number], CMP, TSH3, LIPID, CBC, T4F, ESR #### [place] [address] USAAnion gap [Moles/Vol]8.2 mmol/LNormal6.0-15.0The [facility] Physician GroupComment on above:Performed By: #### [id number], CMP, TSH3, LIPID, CBC, T4F, ESR #### [place] [address] USAAST [Catalytic activity/Vol]19 U/CIrhpvl65-66Hta [facility] Physician GroupComment on above:Performed By: #### [id number], CMP, TSH3, LIPID, CBC, T4F, ESR #### [place] [address] USABilirubin [Mass/Vol]0.7 mg/dLNormal0.3-1.0The [facility] Physician GroupComment on above:Performed By: #### [id number], CMP, TSH3, LIPID, CBC, T4F, ESR #### [place] [address] USACalcium [Mass/Vol]9.7 mg/dLNormal8.6-10.3The [facility] Physician GroupComment on above:Performed By: #### [id number], CMP, TSH3, LIPID, CBC, T4F, ESR #### [place] [address] USAChloride [Moles/Vol]107 mmol/CMjhmzr62-290Vwk [facility] Physician GroupComment on above:Performed By: #### [id number], CMP, TSH3, LIPID, CBC, T4F, ESR #### [place] [address] USACO2 [Moles/Vol]31.5 mmol/LHigh21.0-31.0The [facility] Physician GroupComment on above:Performed By: #### [id number], CMP, TSH3, LIPID, CBC, T4F, ESR #### [place] [address] USACreatinine [Mass/Vol]0.67 mg/dLNormal0.60-1.20The [facility] Physician GroupComment on above:Performed By: #### [id number], CMP, TSH3, LIPID, CBC, T4F, ESR #### [place] [address] USAGFR/1.73 sq M.predicted MDRD (S/P/Bld) [Vol rate/Area] mL/min/{1.73_m2}NormalThe Formerly [facility] Physician GroupComment on above:Performed By: #### [id number], CMP, TSH3, LIPID, CBC, T4F, ESR #### [place] [address] USAGlobulin (S) [Mass/Vol]1.9 g/dLNormalThe [facility] Physician GroupComment on above:Performed By: #### [id number], CMP, TSH3, LIPID, CBC, T4F, ESR #### [place] [address] USAGlucose [Mass/Vol]89 mg/iWMcgrbq32-378Gmf Former[facility] Physician GroupComment on above:Result Comment: Random Glucose Reference Range is dependent on time and content of last meal. Glucose of more than 200 mg/dL in a nonstressed, ambulatory subject supports the diagnosis of Diabetes Mellitus. ADA recommended reference rangePerformed By: #### [id number], CMP, TSH3, LIPID, CBC, T4F, ESR #### [place] [address] USAPotassium [Moles/Vol]3.7 mmol/LNormal3.5-5.1The Former[facility] Physician GroupComment on above:Performed By: #### [id number], CMP, TSH3, LIPID, CBC, T4F, ESR #### [place] [address] USAProtein [Mass/Vol]5.6 g/dLLow6.4-8.9The [facility] Physician GroupComment on above:Performed By: #### [id number], CMP, TSH3, LIPID, CBC, T4F, ESR #### [place] [address] USASodium [Moles/Vol]143 mmol/ABofmyk973-107Zin [facility] Physician GroupComment on above:Performed By: #### [id number], CMP, TSH3, LIPID, CBC, T4F, ESR #### [place] [address] USAUrea nitrogen [Mass/Vol]19 mg/dLNormal7-25The [facility] Physician GroupComment on above:Performed By: #### [id number], CMP, TSH3, LIPID, CBC, T4F, ESR #### [facility] [address] [place] [id number] USAErythrocyte Sedimentation Rateon 05-30-1120LUX (Bld) [Velocity]9 mm/hNormal0-29The [facility] Physician GroupComment on above:Result Comment: PERFORMED BY: [place] [address] PATHOLOGIST ASSISTANT FITNESS MANAGER JASIEL HURTADO M.D.Performed By: #### [id number], CMP, TSH3, LIPID, CBC, T4F, ESR #### [place] [address] USAFree T4 (Free Thyroxine)on 18-10-3040Wpzj T4 [Mass/Vol] 0.74 ng/dLNormal0.61-1.12The Former[facility] Physician GroupComment on above:Performed By: #### LIPID, TSH3, CMP, CBC #### [place] [address] USALipid Panelon 86-94-0576Gedbskvblni [Mass/Vol]228 mg/dL Xvqp956-281Phl Former[facility] Physician GroupComment on above:Result Comment: Chol less than 200 mg/dl low risk Chol 201-239 mg/dl borderline risk Chol 240 mg/dl and greater high riskPerformed By: #### [id number], CMP, TSH3, LIPID, CBC, T4F, ESR #### [place] [id number] USACholesterol in HDL [Mass/Vol]96 mg/cUDxbf08-92Foo Former[facility] Physician GroupComment on above:Result Comment: HDL CHOL ATP-III CLASSIFICATION Cardiovascular Risk HDL > or equal to 60 mg/dL LOW HDL < 40 mg/dL HIGHPerformed By: #### [id number], CMP, TSH3, LIPID, CBC, T4F, ESR #### [place] [id number] USACholesterol.total/Cholesterol in HDL [Mass ratio]2.4 {ratio}Normal<5.0The Former[facility] Physician GroupComment on above:Performed By: #### [id number], CMP, TSH3, LIPID, CBC, T4F, ESR #### [facility] [address] [place] [address] USALDL Cholesterol,Jjzgpiowsr240 mg/dLHigh0-100The Former[facility] Physician GroupComment on above:Result Comment: LDL ATP III CLASSIFICATION LDL less than 100 mg/dL Optimal LDL 100-129 mg/dL Near or above optimal LDL 130-159 mg/dL Borderline high LDL 160-189 mg/dL High LDL greater than 189 mg/dL Very highPerformed By: #### [id number], CMP, TSH3, LIPID, CBC, T4F, ESR #### [facility] [address] [place] [address] USATriglyceride w/Lzoxhe68 mg/dLNormal0-149The Former[facility] Physician GroupComment on above:Result Comment: TRIG ATP III CLASSIFICATION TRIG less than 150 mg/dL Normal TRIG 150-199 mg/dL Borderline high TRIG 200-500 mg/dL High TRIG greater than 500 mg/dL Very high Standard traceable to the Center for Disease Conrtrol and Prevention (CDC) test method.Performed By: #### [id number], CMP, TSH3, LIPID, CBC, T4F, ESR #### [facility] [address] [place] [address] USAVLDL DLHHNUFGEGG01 mg/dLNormalThe [facility] Physician GroupComment on above:Performed By: #### [id number], CMP, TSH3, LIPID, CBC, T4F, ESR #### [facility] [address] [place] [address] USAThyroid Stimulating Hormoneon 86-77-4891ZBR Qn6.38 m[IU]/L High0.45-5.33The Former[facility] Physician GroupComment on above:Performed By: #### LIPID, TSH3, CMP, CBC #### [facility] [address] [place] [address] USAVitamin D 25 Hydroxy Totalon 21-33-9906Pupzude D 25 Hydroxy Total28.4 ng/oEUsu59-726Ixo Former[facility] Physician GroupComment on above: Result Comment: VITAMIN D STATUS 25(OH)VITAMIN D RANGE (ng/mL) Deficient <20 Insufficient 20 to <30 Sufficient 30 to 100 Reference: Yolanda ARIAS,Nathan NC, Keshawn FRANCO, et al. Evaluation,treatment, and prevention of vitamin D deficiency; an Endocrine Society clinical practice guideline. JCEM. 2010; 96(7):1911-30. PERFORMED BY: [place] [address] PATHOLOGIST ASSISTANT FITNESS MANAGER JASIEL HURTADO M.D.Performed By: #### LIPID, TSH3, CMP, CBC #### [place] [address] USAXR scapula LT*on 97-00-4141IR scapula LT*[facility] Main [address] [place] [address] XRay Report Signed Patient: Lavonne Villatoro MR#: [id number] : 1935 Acct:[id number] Age/Sex: 88 / F ADM Date: 05/25/24 Loc: Room: Type: [facility] Attending Dr: Suhas Garrett DO Copies to: Suhas Garrett DO Ordering Provider: Suhas Garrett DO Date of Service: 05/25/24 XR/XR shoulder LT min 2V*: M25.519 - Pain in unspecified shoulder ([id number]) XR/XR scapula LT*: M25.519 - Pain in [...] ACUTE BONY FINDINGS. Impression dictated by: Casandra Gmóez M.D.05/25/2024 4:45 PM Dictation Location: [place] [address] Transcribed By: [facility] 05/25/241644 Dictated By: Casandra Gómez MD 05/25/241641 Signed By: 05/25/24 1645[facility] Physician GroupTRANSTHORACIC ECHO (TTE) COMPLETEon 77-56-1076CDBQLOQKMIPQC ECHO (TTE) COMPLETENo[address], [address] [place] [address] TRANSTHORACIC ECHOCARDIOGRAM REPORT Patient Name: LAVONNE VILLATORO Reading Physician: [id number] Shy Wolf MD, [facility] Study Date: 02/11/2024 Ordering Provider: [id number] SHY WOLF MRN/PID: [id number] Fellow: Nurse: Date of /Age: 3 1935 / 88 years Equity Analyst: LILIA Gender: F Additional Staff: Height: 157.48 cm Admit Date: Weight: 69.40 kg Admission Status: BSA / BMI: 1.71 m2 / 27.98 kg/m2 Department Location: [facility] Blood Pressure: 116 /76 mmHg Study Type: TRANSTHORACIC ECHO (TTE) COMPLETE Diagnosis/ICD: Nonrheumatic aortic (valve) stenosis-I35.0 Indication: HTN, Hyperlipidemia, 3/6 Systolic Murmur, Hypothryoid, Overweight CPT Codes: Echo Complete w Full Doppler-58517 Study Detail: The following Echo studies were [...] mmHg PIEDV: 2.23 m/s PADP: 22.9 mmHg [id number] Shy Wolf MD, FACC Electronical (more content not included)...[facility] BIon 21-24-2789JG carotid doppler [facility] Main [address] [place] [address] Ultrasound Report Signed Patient: Lavonne Villatoro MR#: [id number] : 1935 Acct:[id number] Age/Sex: 88 / F ADM Date: 10/14/23 Loc: Room: Type: [facility] Attending Dr: Suhas Garrett DO [...] Hola Wynn M.D.10/15/2023 11:47 AM Dictation Location: [place] [address] Tech: Jackie Aguillon Transcribed By: KIRILL 10/15/23 1147 Dictated By: Hola Wynn MD 10/15/23 1145 Signed By: 10/15/23 1147[facility]ician [facility] UnitComplete Blood Count Auto Diffon 96-10-8947Fejfltlsj (Bld) [#/Vol]0.0 10*3/uLNormal0.0-0.2The [facility] Physician GroupComment on above:Result Comment: PERFORMED BY: [place] [address] PATHOLOGIST ASSISTANT FITNESS MANAGER JODY SOLANO M.D.Performed By: #### LIPID, TSH3, CMP, CBC #### [place] [address] USABasophils/100 WBC (Bld)0.7 %Normal.The Former[facility] Physician GroupComment on above:Performed By: #### LIPID, TSH3, CMP, CBC #### [place] [address] USAEosinophils (Bld) [#/Vol]0.1 10*3/uLNormal0.0-0.45The Former[facility] Physician GroupComment on above:Performed By: #### LIPID, TSH3, CMP, CBC #### [place] [address] USAEosinophils/100 WBC (Bld)1.6 %Normal.The Former[facility] Physician GroupComment on above:Performed By: #### LIPID, TSH3, CMP, CBC #### [place] [address] USAErythrocyte distribution width (RBC) [Ratio]14.8 %Normal 11.9-15.3The Former[facility] Physician GroupComment on above:Performed By: #### LIPID, TSH3, CMP, CBC #### [place] [address] USAHematocrit (Bld) [Volume fraction]39.9 %Bnrmvr67.0-46.4The Former[facility] Physician GroupComment on above:Performed By: #### LIPID, TSH3, CMP, CBC #### [place] [address] USAHemoglobin (Bld) [Mass/Vol]13.2 g/aLMkzznv75.8-15.4The Former[facility] Physician GroupComment on above:Performed By: #### LIPID, TSH3, CMP, CBC #### [place] [address] USALymphocytes (Bld) [#/Vol]2.6 10*3/uLNormal1.00-4.8The Former[facility] Physician GroupComment on above:Performed By: #### LIPID, TSH3, CMP, CBC #### [place] [address] USALymphocytes/100 WBC (Bld)43.5 %Normal.The Former[facility] Physician GroupComment on above:Performed By: #### LIPID, TSH3, CMP, CBC #### [place] [address] USAMCH (RBC) [Entitic mass]33.2 kcJstgjs11.7-34.3The Former[facility] Physician GroupComment on above:Performed By: #### LIPID, TSH3, CMP, CBC #### [place] [address] USAV (RBC) [Entitic vol]100.5 pQLxer71-231Qpf [facility] Physician GroupComment on above:Performed By: #### LIPID, TSH3, CMP, CBC #### [place] [address] USAMean Corpuscular HGB Conc33.0 g/hYKvexly92.0-35.0The Former[facility] Physician GroupComment on above:Performed By: #### LIPID, TSH3, CMP, CBC #### [place] [address] USAMonocytes (Bld) [#/Vol]0.6 10*3/uLNormal0.0-0.8The Former[facility] Physician GroupComment on above:Performed By: #### LIPID, TSH3, CMP, CBC #### [place] [address] USAMonocytes/100 WBC (Bld)9.7 %Normal.The Former[facility] Physician GroupComment on above:Performed By: #### LIPID, TSH3, CMP, CBC #### [place] [address] USANeutrophils (Bld) [#/Vol]2.7 10*3/uLNormal1.8-7.7The Former[facility] Physician GroupComment on above:Performed By: #### LIPID, TSH3, CMP, CBC #### [place] [address] USANeutrophils/100 WBC (Bld)44.5 %Normal.The Former[facility] Physician GroupComment on above:Performed By: #### LIPID, TSH3, CMP, CBC #### [place] [address] USANRBC%0.2 /100{WBC}Normal0-0.5The [facility] Comment on above:Performed By: #### LIPID, TSH3, CMP, CBC #### [place] [address] USAPlatelet mean volume (Bld) [Entitic vol]9.2 fLNormal 6.3-10.7The Former[facility] Physician GroupComment on above:Performed By: #### LIPID, TSH3, CMP, CBC #### [place] [address] USAPlatelets (Bld) [#/Vol]229 10*3/vHSckref375-897Hsy [facility] Physician GroupComment on above:Performed By: #### LIPID, TSH3, CMP, CBC #### [place] [address] USARBC (Bld) [#/Vol]3.98 10*6/uLNormal3.60-5.00The Former[facility] Physician GroupComment on above:Performed By: #### LIPID, TSH3, CMP, CBC #### [facility] [address] [place] [address] USAWBC (Bld) [#/Vol]6.0 10*3/uLNormal3.8-11.6The Former[facility] Physician GroupComment on above:Performed By: #### LIPID, TSH3, CMP, CBC #### [place] [address] USAComprehensive Metabolic Panelon 40-95-9106Arjncgs [Mass/Vol]3.8 g/dLNormal3.5-5.7The Former[facility] Physician GroupComment on above: Performed By: #### LIPID, TSH3, CMP, CBC #### [place] [address] USAAlbumin/Globulin [Mass ratio]1.7 {ratio}NormalThe Former[facility] Physician GroupComment on above:Performed By: #### LIPID, TSH3, CMP, CBC #### [place] [address] USAALP [Catalytic activity/Vol]72 U/XWxgfsk59-585Zih [facility] Physician GroupComment on above:Performed By: #### LIPID, TSH3, CMP, CBC #### [place] [address] USAALT [Catalytic activity/Vol]43 U/LNormal7-52The [facility] Physician GroupComment on above:Performed By: #### LIPID, TSH3, CMP, CBC #### [place] [address] USAAnion gap [Moles/Vol]8.9 mmol/LNormal6.0-15.0The Former[facility] Physician GroupComment on above:Performed By: #### LIPID, TSH3, CMP, CBC #### [place] [address] USAAST [Catalytic activity/Vol]23 U/QGjkfba19-94Ycv [facility] Physician GroupComment on above:Performed By: #### LIPID, TSH3, CMP, CBC #### [place] [address] USABilirubin [Mass/Vol]1.2 mg/dLHigh0.3-1.0The [facility] Physician GroupComment on above:Performed By: #### LIPID, TSH3, CMP, CBC #### [place] [address] USACalcium [Mass/Vol]9.5 mg/dLNormal8.6-10.3The Former[facility] Physician GroupComment on above:Performed By: #### LIPID, TSH3, CMP, CBC #### [facility] [address] [place] [address] USAChloride [Moles/Vol]107 mmol/KBmqaut89-387Ncv [facility] Physician GroupComment on above:Performed By: #### LIPID, TSH3, CMP, CBC #### [place] [address] USACO2 [Moles/Vol]30.0 mmol/TEhkvni12.0-31.0The Former[facility] Physician GroupComment on above:Performed By: #### LIPID, TSH3, CMP, CBC #### [place] [address] USACreatinine [Mass/Vol]0.76 mg/dLNormal0.60-1.20The Former[facility] Physician GroupComment on above:Performed By: #### LIPID, TSH3, CMP, CBC #### [place] [address] USAGFR/1.73 sq M.predicted MDRD (S/P/Bld) [Vol rate/Area] mL/min/{1.73_m2}NormalThe [facility] Physician GroupComment on above:Performed By: #### LIPID, TSH3, CMP, CBC #### [place] [address] USAGlobulin (S) [Mass/Vol]2.2 g/dLNormalThe [facility] Physician GroupComment on above:Performed By: #### LIPID, TSH3, CMP, CBC #### [place] [address] USAGlucose [Mass/Vol]79 mg/vQJsijsj31-898Knp [facility] Physician GroupComment on above:Result Comment: Random Glucose Reference Range is dependent on time and content of last meal. Glucose of more than 200 mg/dL in a nonstressed, ambulatory subject supports the diagnosis of Diabetes Mellitus. ADA recommended reference rangePerformed By: #### LIPID, TSH3, CMP, CBC #### [facility] [address] [place] [address] USAPotassium [Moles/Vol]3.9 mmol/LNormal3.5-5.1The Former[facility] Physician GroupComment on above:Performed By: #### LIPID, TSH3, CMP, CBC #### [facility] [address] [place] [address] USAProtein [Mass/Vol]6.0 g/dLLow6.4-8.9The Former[facility] Physician GroupComment on above:Performed By: #### LIPID, TSH3, CMP, CBC #### [facility] [address] [place] [address] USASodium [Moles/Vol]142 mmol/GMirlwv819-214Geo [facility] Physician GroupComment on above:Performed By: #### LIPID, TSH3, CMP, CBC #### [facility] [address] [place] [address] USAUrea nitrogen [Mass/Vol]22 mg/dLNormal7-25The [facility] Physician GroupComment on above:Performed By: #### LIPID, TSH3, CMP, CBC #### [place] [address] USALipid Panelon 17-22-1383Ssphdjhfniq [Mass/Vol]243 mg/dL Jkgi004-139Vdv [facility] Physician GroupComment on above:Result Comment: Chol less than 200 mg/dl low risk Chol 201-239 mg/dl borderline risk Chol 240 mg/dl and greater high riskPerformed By: #### LIPID, TSH3, CMP, CBC #### [place] [address] USACholesterol in HDL [Mass/Vol]98 mg/tBYwdu54-08Aia [facility] Physician GroupComment on above:Result Comment: HDL CHOL ATP-III CLASSIFICATION Cardiovascular Risk HDL > or equal to 60 mg/dL LOW HDL < 40 mg/dL HIGHPerformed By: #### LIPID, TSH3, CMP, CBC #### [facility] [address] [place] [id number] USACholesterol.total/Cholesterol in HDL [Mass ratio]2.5 {ratio}Normal<5.0The [facility] Physician GroupComment on above:Performed By: #### LIPID, TSH3, CMP, CBC #### [facility] [address] [place] [address] USALDL Cholesterol,Zzycnzuklr696 mg/dLHigh0-100The Former[facility] Physician GroupComment on above:Result Comment: LDL ATP III CLASSIFICATION LDL less than 100 mg/dL Optimal LDL 100-129 mg/dL Near or above optimal LDL 130-159 mg/dL Borderline high LDL 160-189 mg/dL High LDL greater than 189 mg/dL Very highPerformed By: #### LIPID, TSH3, CMP, CBC #### [place] [address] USATriglyceride w/Qyiyjw477 mg/dLNormal0-149The Former[facility] Physician GroupComment on above:Result Comment: TRIG ATP III CLASSIFICATION TRIG less than 150 mg/dL Normal TRIG 150-199 mg/dL Borderline high TRIG 200-500 mg/dL High TRIG greater than 500 mg/dL Very high Standard traceable to the Center for Disease Conrtrol and Prevention (CDC) test method.Performed By: #### LIPID, TSH3, CMP, CBC #### [place] [address] USAVLDL OEJVUKPRAAK49 mg/dLNormalThe [facility] Physician GroupComment on above:Performed By: #### LIPID, TSH3, CMP, CBC #### [place] [id number] USAThyroid Stimulating Hormoneon 20-22-8530OIK Qn4.01 m[IU]/L Normal0.45-5.33The [facility] Physician GroupComment on above:Result Comment: PERFORMED BY: [place] [address] PATHOLOGIST ASSISTANT FITNESS MANAGER JODY SOLANO M.D.Performed By: #### LIPID, TSH3, CMP, CBC #### [facility] [address] [place] [address] USAComplete Blood Count Auto Diffon 29-00-5169Yxjzudowm (Bld) [#/Vol]0.232693536 10*3/uLNormal0.0-0.2 10*3/Dovo Other Basophils/100 WBC (Bld)0.900 %. %[employer] Other Eosinophils (Bld) [#/Vol]0.487617420 10*3/uLNormal0.0- 0.45 10*3/[employer]ovo Other Eosinophils/100 WBC (Bld)1.100 %. %[employer] Other Erythrocyte distribution width (RBC) [Ratio]14.000 % Rkupfq32.9-15.3 %[employer] Other Hematocrit (Bld) [Volume fraction]37.700 %Jcjnhy12.0- 46.4 %[employer] Other Hemoglobin (Bld) [Mass/Vol]12.738651 g/hCVwbahj40.8- 15.4 g/dLNoQD Vision Other Lymphocytes (Bld) [#/Vol]2.963761058 10*3/uLNormal 1.00-4.8 10*3/[employer] Other Lymphocytes/100 WBC (Bld)35.100 %. %[employer] Other MCH (RBC) [Entitic mass]33.3000 rcFixbwp07.7-34.3 pg [employer] Other MCV (RBC) [Entitic vol]99.7000 kLFrhddt46-985 fLGuojia [employer] Other Monocytes (Bld) [#/Vol]0.169903520 10*3/uLNormal0.0- 0.8 10*3/[employer] Other Monocytes/100 WBC (Bld)10.000 %. %[employer] Other Neutrophils (Bld) [#/Vol]3.261591813 10*3/uLNormal1.8- 7.7 10*3/[employer] Other Neutrophils/100 WBC (Bld)52.900 %. %[employer] Other Platelet mean volume (Bld) [Entitic vol]9.9000 fL Normal6.3-10.7 fLShannon [employer] LLC Other Platelets (Bld) [#/Vol]224 10*3/zNUxbhzh323-763 10*3/[employer] Other RBC (Bld) [#/Vol]3.78 10*6/uLNormal3.60-5.00[employer] Other WBC (Bld) [#/Vol]7.003051658 10*3/uLNormal3.8-11.6 10*3/[employer] Other Complete Blood Count Auto Diff7.1 10*3/uLNormal3.8- 11.6 10*3/[employer] Other Complete Blood Count Auto Diff33.4 g/sRGtyiob51.0-35.0 g/dLGuojia New Materials Other Complete Blood Count Auto Diff0.1 /100{WBC}Normal0-0.5 /100{WBC}[employer] Other Comprehensive Metabolic Panelon 57-38-2142Wikviyd [Mass/Vol]3.101971 g/dLNormal3.5-5.7 g/dLNoBuyerMLS [employer] Other Albumin/Globulin [Mass ratio]1.7 {ratio}[employer] Other ALP [Catalytic activity/Vol]140 U/DNoyp90-659 U/[facility] Other ALT [Catalytic activity/Vol]71 U/LHigh7-52 U/[facility] Other AST [Catalytic activity/Vol]20 U/SBvzxfh01-59 U/[facility] Other Bilirubin [Mass/Vol]0.5699671 mg/dLNormal0.3-1.0 mg/dL [employer] Other Calcium [Mass/Vol]9.9619549 mg/dLNormal8.6-10.3 mg/dL [employer] Other Chloride [Moles/Vol]107 mmol/PLroico93-454 mmol/[facility] Other CO2 [Moles/Vol]30.57022591 mmol/XAlmzsg98.0-31.0 mmol/[facility] Other Creatinine [Mass/Vol]0.82052425 mg/dLNormal0.60-1.20 mg/dLNoQD Vision Other GFR/1.73 sq M.predicted MDRD (S/P/Bld) [Vol rate/Area] mL/min/{1.73_m2}[employer] Other Glucose [Mass/Vol]89 mg/oTDpdlbq99-619 mg/dLGuojia [employer] Other Potassium [Moles/Vol]3.07166665 mmol/LNormal3.5-5.1 mmol/[facility] Other Protein [Mass/Vol]6.296743 g/dLLow6.4-8.9 g/dLShannon Vital LLC Other Sodium [Moles/Vol]143 mmol/WYhssea521-231 mmol/LNsaint john's aurora community [facility] [employer] Other Urea nitrogen [Mass/Vol]21 mg/dLNormal7-25 mg/dLShannon [employer] Other Comprehensive Metabolic Panel2.2 g/dLNoranken jordan pediatric specialty hospital [employer] Other Free T4 (Free Thyroxine)on 61-93-9936Gleg T4 [Mass/Vol]1.85911724 ng/dLHigh0.61-1.12 ng/dLShannon [employer] Other Thyroid Antibodies TPO+Tg Abon 34-29-9808Xxcksgl Antibodies TPO+Tg Ue543-60Nalxb [employer] Other Thyroid Antibodies TPO+Tg Ab<1.00.0-0.9[facility] Other Thyroid Stimulating Hormoneon 24-48-8093TVA Qn 2.84981139226 m[IU]/LNormal0.45-5.33 u[iU]/mLNI [employer] Other Echocardiogramon 00-17-2052KkjllpecvqupsixvEfoagAmy V[place] [address] TRANSTHORACIC ECHOCARDIOGRAM REPORT Patient Name: LAVONNE Bahena Physician: [id number] [facility]y [facility] Study Date: 02/26/2023 Referring SHY WOLF Physician: MRN/PID: [id number] PCP: Suhas Garrett MD Accession/Order#: [id number] [facility] Location: Date of : 1935 Fellow: Gender: F Nurse: Admit Date: Equity Analyst: Sheridan Escalantez RDCS, RVT Height: 157.48 cm CC Report to: Weight: 67.13 kg Study Type: Echocardiogram BSA: 1.68 m2 Blood Pressure: 122 /76 mmHg Diagnosis/ICD: I35.0-Nonrheumatic aortic (valve) stenosis; R01.1-Cardiac murmur, unspecified Indication: HTN, Hyperlipidemia, Overweight, Hypothyroid, Polymyalgia Rheumatica Procedure/CPT: Echo Complete w Full [id number] Study Detail: The following Echo studies were [...] velocity across the aortic valve has increased [id number] cm/s up to 374 cm/s and aortic [...] mmHg PIEDV: 2.50 m/s PADP: 28.0 mmHg [id number] Shy Wolf MD, FACC Electronically signed on 03/01/2023 at 2:16:46 PM Final NormalProwers Medical CenterOffice Visit (Cardiology)on [id number]-up visitDiagnoses/Problems Assessed Aortic stenosis (424.1) (I35.0) Murmur, cardiac (785.2) (R01.1) Essential hypertension (401.9) (I10) Hyperlipidemia (272.4) (E78.5) Overweight with body mass index (BMI) of 27 to 27.9 in adult (278.02,V85.23) (E66.3,Z68.27) Never smoker Hypothyroidism (244.9) (E03.9) PMR (polymyalgia rheumatica) (725) (M35.3) Orders Aortic stenosis, Murmur, cardiac Echocardiogram; Status:Hold For - Scheduling,Retrospective Authorization; Requested for:[id number]; Essential hypertension, Hyperlipidemia Changed: From Aspirin EC 81 MG TBEC TAKE 1 TABLET To Aspirin 81 MG Oral Tablet Delayed Release TAKE 1 TABLET DAILY Overweight with body mass index (BMI) of 27 to 27.9 in adult Healthy Weight Tips; Status:Complete - Retrospective Authorization; Done: [id number] Some eating tips that can help you lose weight.; Status:Complete - Retrospective Authorization; Done: [id number] SocHx: Never smoker Tobacco Use Screening; Status:Complete; Done: [id number] Patient Instructions Please bring all medicines, vitamins, [...] being tapered gradually Shy Wolf MD, [facility] Past Medical History Problems History [...] Multi Vitamin Oral TabletTAKE 1 TABLET DAILY. Marty-3 Fish Oil 1000 MG Oral CapsuleTAKE 1 [...] negative for complaint. Vitals Vital Signs Recorded: 88Neb5118 11:32AM Heart Rate68, R Radial Eslcgziv605, RUE, Sitting Ukpijlpgj36, RUE, Sitting Height5 ft 2 in Belsro233 lb BMI Aqtdjemcbv19.07 kg/m2 BSA Calculated1.68 Tobacco Useb) No PHQ-2 [...] included)...NormalUH TouchworksTobacco Screening.on 12-24-2022 [facility]No[facility] [address] [place] Work Phone: Fall risk assessmenta) No falls within the last year [facility] 250 DO Work Phone: Tobacco use status [facility]PHSb) [facility] Work Phone: Complete Blood Count Auto Diffon 05-46-0823Tzkvbolrl (Bld) [#/Vol]0.474951623 10*3/uLNormal0.0-0.2 10*3/Dovo Other Basophils/100 WBC (Bld)0.700 %. %[employer] Other Eosinophils (Bld) [#/Vol]0.264328140 10*3/uLNormal0.0- 0.45 10*3/[employer]ovo Other Eosinophils/100 WBC (Bld)0.700 %. %[employer] Other Erythrocyte distribution width (RBC) [Ratio]13.500 % Fffvtk69.9-15.3 %[employer] Other Hematocrit (Bld) [Volume fraction]38.400 %Iohlsg97.0- 46.4 %[employer] Other Hemoglobin (Bld) [Mass/Vol]12.856558 g/zSRmkmme94.8- 15.4 g/dLNoBuyerMLS [employer] LLC Other Lymphocytes (Bld) [#/Vol]0.701612550 10*3/uLLow1.00- 4.8 10*3/Dovo Other Lymphocytes/100 WBC (Bld)12.600 %. %[employer] Other MCH (RBC) [Entitic mass]33.7000 ycXnbtaz11.7-34.3 pg [employer] Other MCV (RBC) [Entitic vol]100.4000 aLHqwd55-992 fLBuyerMLS [employer] LLC Other Monocytes (Bld) [#/Vol]0.331858237 10*3/uLNormal0.0- 0.8 10*3/[employer] Other Monocytes/100 WBC (Bld)6.800 %. %[employer] Other Neutrophils (Bld) [#/Vol]5.752580047 10*3/uLNormal1.8- 7.7 10*3/Dovo Other Neutrophils/100 WBC (Bld)79.200 %. %[employer] Other Platelet mean volume (Bld) [Entitic vol]9.4000 fL Normal6.3-10.7 [facility] Other Platelets (Bld) [#/Vol]223 10*3/wWXyiams809-478 10*3/[employer] Other RBC (Bld) [#/Vol]3.0471682037 10*6/uLNormal3.60-5.00 10*6/[employer] Other WBC (Bld) [#/Vol]6.108776125 10*3/uLNormal3.8-11.6 10*3/[employer] Other Complete Blood Count Auto Diff6.6 10*3/uLNormal4.5- 11.0 10*3/Dovo Other Complete Blood Count Auto Diff33.6 g/iJPdbtdn36.0-35.0 g/dLGuojia New Materials Other Complete Blood Count Auto Diff0.1 %Normal0-0.5 %[employer] Other Erythrocyte Sedimentation Rateon 65-93-7984MHZ (Bld) [Velocity]28 mm/hNormal0-29[employer] Other VASC LAB Carotid Artery Duplex Ultrasoundon 02-21-2022 US.doppler Carotid arteriesDo[facility] [address] [place] Work Phone: COVID Quick Testingon 97-77-1343HambhqSdhvlmegPvntj [employer] Other Falls Screening (Age 18+)on 12-34-8939Rlyz risk assessmenta) No falls within the last [facility] 250 DO Work Phone: Office Visit (Cardiology)on 92-38-1182Hisngy-up visit Diagnoses/Problems Assessed Essential hypertension (401.9) (I10) [...] Multi Vitamin Oral TabletTAKE 1 TABLET DAILY. Marty 3 500 CAPSTAKE 1 CAPSULE Daily predniSONE 5 MG Oral Fvcysa9XB 7.5MG BY MOUTH ONE DAILY ALTERNATING EVERY OTHER DAY Allergies Medication amoxicillin Hives;; Recorded By: Kayla Orr; 10/17/2021 10:50:34 AM Dilantin CAPS Rash; Recorded By: Kayla Orr; 10/17/2021 10:50:34 AM Fosamax eye pain; Recorded By: Kayla Orr; 10/17/2021 10:50:34 AM Depakote ER TB24 Recorded By: Kayla Orr; 10/17/2021 10:50:34 AM Vitals Vital Signs Recorded: 26Dec2021 11:04AMRecorded: 26Dec2021 11:00AM Heart Rate56, R Guaihx37, R Radial Mjltyugp164, LUE, Quailan101, RUE Ubbciesvi83, LUE, Bcmqfsq97, RUE Height5 ft 2 in5 ft 2 in Hgfnps967 lb 143 lb BMI Zqcbhsbwnu70.16 kg/m226.16 kg/m2 BSA Calculated1.661.66 Falls Screening (Age 18+)a) No falls within the last year Signatures Electronically signed by : Shy Wolf MD; Dec 26 2021 4:02PM EST (Author) [facility] TouchworksTobacco Screening.on 18-92-6769Ntzvo depression screening assessmentNoTrihealth Work Phone: Fall risk assessmenta) No falls within the last year [facility] Work Phone: Tobacco use status CPHSb) [facility] Work Phone: Vital Signs Date TimeVital SignValuePerforming TprftitpqTywyzcxo89-42-0127 11:07-0400Body eortph086.5 cmShy Wolf MD Work Phone: [facility]08-08-2025 11:07-0400 Body mass index (BMI) [Ratio]27.44 kg/n1LhlngfShy oWlf MD Work Phone: [facility]08-08-2025 11:07-0400 Body yvgmiz47.04 kgShy Wolf MD Work Phone: [facility]08-08-2025 11:07-0400 Diastolic blood eyfoyguo02 mm[Hg]Shy Wolf MD Work Phone: 1(090)764-[address] [place], [place] 7585608-08-2025 11:07-0400 Heart rate60 /minShy Wolf MD Work Phone: 1(164)224-[address] [place], [place] 7585608-08-2025 11:07-0400 Systolic blood rqastswj956 mm[Hg]Shy Wolf MD Work Phone: 1(753)602-[address] [place], [place] 7585607-15-2025 12:30-0400 Body szlkji428.[address]07-15-2025 12:30-0400 Body mass index (BMI) [Ratio]26.52 kg/m[address] 12-21-2024 12:30-0400Body uugpty01.[address] 12-21-2024 12:30-0400Diastolic blood yhfwkegm55 mm[Hg][address]07-15-2025 12:30-0400Systolic blood damoasdr314 mm[Hg][address]07-02-2025 13:56-0400Diastolic blood ynkdlbdp80 mm[Hg]Reuben Burns [employer]IAN [employer] Work Phone: 2(178)878-[address] [place], [place] 7585607-02-2025 13:56-0400 Systolic blood ymiqirzn833 mm[Hg]Reuben Burns [employer] ELECT[employer]ICIAN J[employer] Work Phone: [phone])953-[address] [place], [place] 7585607-01-2025 14:59-0400 Body iauttd046.5 cmReuben Burns IND[employer] ELECTRICIAN [employer] Work Phone: 1(326)876-[address] [place], [place] 7585607-01-2025 14:59-0400 Body mass index (BMI) [Ratio]26.45 kg/o0HixqsReuben Burns INDUSTRI[employer] ELECTRICIAN J[employer] Work Phone: 5([phone])043-[address] [place], [place] 7585607-01-2025 14:59-0400 Body .59 kgReuben Burns IND[employer] ELECTR[employer]IAN [employer] Work Phone: 0([phone])431-[address] [place], [place] 7585607-01-2025 14:59-0400 Heart rate62 /Torreymurali Burns [employer] ELECT[employer] Work Phone: [facility]11-08-2024 13:16-0500 Body .5 cmShy Wolf MD Work Phone: [facility]11-08-2024 13:16-0500 Body mass index (BMI) [Ratio]26.67 kg/o2FpjoceShy Wolf MD Work Phone: 5(002)408-[address] [place], [place] 7585611-08-2024 13:16-0500 Body .13 kgShy Wolf MD Work Phone: 7(178)939-[address] [place], [place] 7585611-08-2024 13:16-0500 Diastolic blood icqsgwhm30 mm[Hg]Shy Wolf MD Work Phone: 7([phone])173-[address] [place], [place] 7585611-08-2024 13:16-0500 Heart rate62 /minShy Wolf MD Work Phone: 2(658)124-[address] [place], [place] 7585611-08-2024 13:16-0500 Systolic blood lofhwyuy140 mm[Hg]Shy Wolf MD Work Phone: 8(662)216-[address] [place], [place] 7585609-04-2024 12:28-0400 Body .[address] [place], [place] 5351509-04-2024 12:28-0400 Body mass index (BMI) [Ratio]27.98 kg/m2Ely [address] [place] [address] 02-11-2024 12:28-0400Body eftkcz36.[address] [place] [address] 02-11-2024 12:28-0400Diastolic blood awwrskut63 mm[Hg][address]09-04-2024 12:28-0400Systolic blood eeubfaet557 mm[Hg][address]01-26-2024 11:15-0500Body fbuaab117.48 cmSuhas Garrett Other [employer] Other 388025-06-6633 11:15-0500Body mass index (BMI) [Ratio] 28.53 kg/x9Ziftx Kunadan Other [employer] Other 01-26-2024 11:15-0500Body eswbuy16.76 kgCarterraquel Garrett Other [employer] Other 01-26-2024 11:15-0500Diastolic blood ggkespdf94 mm[Hg] Suhas Ugo Other [employer] Other 01-26-2024 11:15-0500Respiratory rate20 /minSuhas Ugo Other [employer] Other 01-26-2024 11:15-9774YbF2% (BldA) [Mass fraction]99 % Suhasraquel Mayoadan Other [employer] Other 01-26-2024 11:15-0500Systolic blood ikptzqka753 mm[Hg] Suhas Garrett Other [employer] Other 01-11-2024 11:09-0500Body .5 cmShy Wolf MD Work Phone: [facility]01-11-2024 11:09-0500 Body mass index (BMI) [Ratio]27.98 kg/u5DsicbfShy Wolf MD Work Phone: [facility]01-11-2024 11:09-0500 Body inhuod45.4 kgShy Wolf MD Work Phone: [facility]01-11-2024 11:09-0500 Diastolic blood niqmhhpj17 mm[Hg]Shy Wolf MD Work Phone: [facility]01-11-2024 11:09-0500 Heart rate60 /minShy Wolf MD Work Phone: [facility]01-11-2024 11:09-0500 Systolic blood muekqlke352 mm[Hg]Shy Wolf MD Work Phone: [facility]12-22-2023 11:00-0500 Body .48 cmSuhas Garrett Other [employer] Other [id number] 11:00-0500Body mass index (BMI) [Ratio]27.8 kg/v1AdhhlSuhas Garrett Other [employer] Other 12-22-2023 11:00-0500Body syfcef93.95 kgSuhas Garrett Other [employer] Other 12-22-2023 11:00-0500Diastolic blood mm[Hg] Suhas Garrett Other [employer] Other 12-22-2023 11:00-0500Respiratory rate18 /minSuhas Garrett Other [employer] Other 12-22-2023 11:00-9000GkW9% (BldA) [Mass fraction]96 % Suhas Garrett Other [employer] Other 12-22-2023 11:00-0500Systolic blood lfjfebyk014 mm[Hg] Suhas Garrett Other [employer] Other 09-22-2023 10:30-0400Body fnjwok339.48 cmSuhas Garrett Other [employer] Other 09-22-2023 10:30-0400Body mass index (BMI) [Ratio] 27.98 kg/j3Idxqk Gaeladan Other [employer] Other 09-22-2023 10:30-0400Body mdkjqa13.4 kgCarterraquel Garrett Other [employer] Other 09-22-2023 10:30-0400Diastolic blood ddtzdwuk57 mm[Hg] Suhas Garrett Other [employer] Other 09-22-2023 10:30-0400Respiratory rate16 /minCarterraquel Garrett Other [employer] Other 09-22-2023 10:30-0237TaC1% (BldA) [Mass fraction]91 % Suhas Gaeladan Other [employer] Other 09-22-2023 10:30-0400Systolic blood fuytzwdq360 mm[Hg] Suhas Garrett Other [employer] Other 07-18-2023 11:32-0400Body .48 cmSuhas Hoffman Ugo Work Phone: [phone]-Hefou [facility] 250 DO Work Phone: 1(500) 472-855507-18-2023 11:32-0400Body mass index (BMI) [Ratio] 27.07 kg/n9Gfrcx P Ugo Work Phone: [phone]-Wsuvp [facility] 250 DO Work Phone: 1(394) 977-654907-18-2023 11:32-0400Body surface area Derived from formula1.68 j0Awvfu P Gaels Work Phone: mp539-4762JD-Yxmil [facility] 250 DO Work Phone: 1(163) 327-521507-18-2023 11:32-0400Body jvaeat04.13 kgSuhas Mayoadan Work Phone: [phone]-Kmkpe [facility] 250 DO Work Phone: 1(578) 592-927607-18-2023 11:32-0400Diastolic blood mm[Hg] Suhas Garrett Work Phone: [phone]-Yikdk [facility] 250 DO Work Phone: 1(318) 757-430407-18-2023 11:32-0400Heart rate68 /minSuhas Mayos Work Phone: [phone]-Sufeo [facility] 250 DO Work Phone: 1(862) 791-791507-18-2023 11:32-0400Systolic blood swonlipx791 mm[Hg] Suhas Garrett Work Phone: [phone]-Hkqil [facility] 250 DO Work Phone: 1(309) 431-591306-30-2023 10:30-0400Body zzvyan515.48 cmSuhas Garrett Other [employer] Other 06-30-2023 10:30-0400Body mass index (BMI) [Ratio] 27.98 kg/v7ExgntSuhas Garrett Other [employer] Other 06-30-2023 10:30-0400Body bfvpiv23.4 kgSuhas Garrett Other [employer] Other 06-30-2023 10:30-0400Diastolic blood wymegcfb33 mm[Hg] Suhas Garrett Other [employer] Other 06-30-2023 10:30-0400Respiratory rate16 /minSuhas Garrett Other [employer] Other 06-30-2023 10:30-6259RkU0% (BldA) [Mass fraction]98 % Suhas Garrett Other [employer] Other 06-30-2023 10:30-0400Systolic blood mfxbggga926 mm[Hg] Suhasraquel Garrett Other [employer] Other 04-14-2023 11:45-0400Body dnavgk578.48 cmSuhas Garrett Other [employer] Other 04-14-2023 11:45-0400Body mass index (BMI) [Ratio] 26.34 kg/d0ZildpSuhas Garrett Other [employer] Other 04-14-2023 11:45-0400Body zifdfo51.32 kgSuhas Garrett Other [employer] Other 04-14-2023 11:45-0400Diastolic blood lpooqtut23 mm[Hg] Suhas Garrett Other [employer] Other 04-14-2023 11:45-0400Respiratory rate16 /minSuhas Garrett Other [employer] Other 04-14-2023 11:45-4239XuS9% (BldA) [Mass fraction]98 % Suhasraquel Garrett Other [employer] Other 04-14-2023 11:45-0400Systolic blood mm[Hg] Suhasraquel Mayoadan Other [employer] Other 02-13-2023 11:30-0500Body eddytv921.48 cmSuhas Garrett Other [employer] Other 02-13-2023 11:30-0500Body mass index (BMI) [Ratio] 26.85 kg/s7UzzumSuhas Garrett Other [employer] Other 02-13-2023 11:30-0500Body ydtgod15.59 kgCarterraquel Garrett Other [employer] Other 02-13-2023 11:30-0500Diastolic blood nsbpifkq90 mm[Hg] Suhas Ugo Other [employer] Other 02-13-2023 11:30-0500Respiratory rate16 /minBryraquel Garrett Other [employer] Other 02-13-2023 11:30-9581PyR0% (BldA) [Mass fraction]98 % Suhas Garrett Other [employer] Other 02-13-2023 11:30-0500Systolic blood jhmqbxfy191 mm[Hg] Suhas Garrett Other [employer] Other 11-09-2022 11:45-0500Body .48 cmCarterraquel Garrett Other [employer] Other 11-09-2022 11:45-0500Body mass index (BMI) [Ratio] 26.88 kg/b1Qpdia Kuns Other [employer] Other 11-09-2022 11:45-0500Body .68 kgCarterraquel Garrett Other [employer] Other 11-09-2022 11:45-0500Diastolic blood bffngzan41 mm[Hg] Suhas Ugo Other [employer] Other 11-09-2022 11:45-0500Respiratory rate16 /minSuhas Garrett Other [employer] Other 11-09-2022 11:45-2337YqV3% (BldA) [Mass fraction]99 % Suhas Garrett Other [employer] Other 11-09-2022 11:45-0500Systolic blood ddidierc912 mm[Hg] Suhas Garrett Other [employer] Other 09-16-2022 10:15-0400Body cycsbu601.48 cmSuhas Garrett Other [employer] Other 09-16-2022 10:15-0400Body mass index (BMI) [Ratio] 27.07 kg/o7Dxmfl Kunadan Other [employer] Other 09-16-2022 10:15-0400Body cyexuo30.13 kgCarterraquel Garrett Other [employer] Other 09-16-2022 10:15-0400Diastolic blood cocbpcvl37 mm[Hg] Suhas Garrett Other [employer] Other 09-16-2022 10:15-0400Respiratory rate16 /minSuhas Garrett Other [employer] Other 09-16-2022 10:15-7167QmT9% (BldA) [Mass fraction]97 % Suhas Garrett Other [employer] Other 09-16-2022 10:15-0400Systolic blood lbfowmez432 mm[Hg] Suhas Garrett Other [employer] Other 09-15-2022 10:45-378285 1Bprimo Garrett Work Phone: [phone]-[place]bf[place] [address] Work Phone: Comment on above:[id number] 15:45-0400Body mgnvat743.48 cmSuhas Garrett Other [employer] Other 09-08-2022 15:45-0400Body mass index (BMI) [Ratio]26.7 kg/x1NizzhSuhas Garrett Other [employer] Other 09-08-2022 15:45-0400Body nygyos36.23 kgSuhas Garrett Other [employer] Other 09-08-2022 15:45-0400Diastolic blood mm[Hg] Suhas Garrett Other [employer] Other 09-08-2022 15:45-0400Respiratory rate16 /minSuhas Garrett Other [employer] Other 09-08-2022 15:45-5738JgN3% (BldA) [Mass fraction]96 % Suhas Garrett Other [employer] Other 09-08-2022 15:45-0400Systolic blood ofwrsflq362 mm[Hg] Suhas Garrett Other [employer] Other 07-20-2022 11:04-0400Body uvmbcc766.48 cmSuhas Garrett Work Phone: [phone]-Qmbnd [facility] 250 DO Work Phone: 1([phone]) 616-736307-20-2022 11:04-0400Body mass index (BMI) [Ratio] 26.16 kg/w5PahihSuhas Garrett Work Phone: [phone]-Nhfvz [facility] 250 DO Work Phone: 1(903) 309-313607-20-2022 11:04-0400Body surface area Derived from formula1.66 g3CgfshSuhas Garrett Work Phone: mp225-6272GK-Gtbtx [facility] 250 DO Work Phone: 1(230) 203-517007-20-2022 11:04-0400Body usbqwm45.86 kgSuhas Garrett Work Phone: mp955-0272OT-Bwkbx [facility] 250 DO Work Phone: 1(209) 969-938607-20-2022 11:04-0400Diastolic blood kfvdykgx87 mm[Hg] Suhas Garrett Work Phone: mp284-2015RS-Rnzni [facility] 250 DO Work Phone: 1(295) 645-697907-20-2022 11:04-0400Heart rate56 /minSuhas Garrett Work Phone: mp860-1768AR-Getep [facility] [address] DO Work Phone: 1(650) 636-317207-20-2022 11:04-0400Systolic blood wndzcvni446 mm[Hg] Suhas Garrett Work Phone: mp793-6535TM-Kmrnl [facility] 250 DO Work Phone: 1(849) 262-318807-20-2022 11:00-0400Diastolic blood ritlobeh10 mm[Hg] Suhas Garrett Work Phone: 1(372) 540-4899253-8199AE-Ksopi [facility] 250 DO Work Phone: 1(984) 376-577207-20-2022 11:00-0400Systolic blood chrardoi433 mm[Hg] Suhas Garrett Work Phone: 1(961) 302-4137990-3015QA-Gqoir [facility] 250 DO Work Phone: 1(267) 925-172907-07-2022 11:39-0400Diastolic blood wfgvarpq85 mm[Hg] Suhas Garrett Work Phone: 1(083)[address] [place] [address] Work Phone: 1(800) 195-557407-07-2022 11:39-0400Systolic blood voovjsxc736 mm[Hg] Suhas Garrett Work Phone: 1(956)[address] [place] [address] Work Phone: 1(423) 912-517107-07-2022 11:22-0400Diastolic blood xuqhxhwf76 mm[Hg] Suhas Garrett Work Phone: 1(005)[address] [place] [address] Work Phone: 1(867) 896-451707-07-2022 11:22-0400Systolic blood jpxrarqm316 mm[Hg] Suhas Garrett Work Phone: 1(019)[address] [place] [address] Work Phone: 1(595) 210-220107-07-2022 11:17-0400Body voggpq254.48 cmSuhas Garrett Work Phone: 1(603)[address] [place] [address] Work Phone: [phone]7-79-9431 11:17-0400Body mass index (BMI) [Ratio] 26.52 kg/h6WnjwkSuhas Garrett Work Phone: 1(945)[facility]42[facility] Work Phone: [phone]6-1971 11:17-0400Body surface area Derived from formula1.67 p2YcezvSuhas Garrett Work Phone: 1(515)[address] [place] [address] Work Phone: 1(438) 923-140007-07-2022 11:17-0400Body bkkifi45.77 kgSuhas Garrett Work Phone: 1(419)[address] [place] [address] Work Phone: 1(464) 856-109107-07-2022 11:17-0400Diastolic blood wtjoylqt25 mm[Hg] Suhas Garrett Work Phone: [facility] Work Phone: 1(857) 129-794007-07-2022 11:17-0400Heart rate60 /minSuhas Garrett Work Phone: [facility] Work Phone: 1(159) 556-453707-07-2022 11:17-0400Systolic blood hhhbnkmo277 mm[Hg] Suhas Garrett Work Phone: [facility] Work Phone: 1(411) 676-979004-25-2022 13:30-0400Body hcsonz168.48 cmSuhas Garrett Other [employer] Other 04-25-2022 13:30-0400Body mass index (BMI) [Ratio] 26.34 kg/y1NytvhSuhas Garrett Other [employer] Other 04-25-2022 13:30-0400Body .32 kgSuhas Garrett Other [employer] Other 04-25-2022 13:30-0400Diastolic blood kwrhtrup46 mm[Hg] Suhas Garrett Other [employer] Other 04-25-2022 13:30-0400Respiratory rate18 /minSuhas Garrett Other [employer] Other 04-25-2022 13:30-4118MyZ3% (BldA) [Mass fraction]99 % Suhas Garrett Other [employer] Other 04-25-2022 13:30-0400Systolic blood jfobjzax122 mm[Hg] Suhas Garrett Other [employer] Other 02-24-2022 13:30-0500Body vptcqa543.48 cmCarterraquel Garrett Other [employer] Other 02-24-2022 13:30-0500Body mass index (BMI) [Ratio] 26.52 kg/b9Zrxge Kunadan Other [employer] Other 02-24-2022 13:30-0500Body .77 kgCarterraquel Garrett Other [employer] Other 02-24-2022 13:30-0500Diastolic blood ksqusqpz62 mm[Hg] Suhas Garrett Other [employer] Other 02-24-2022 13:30-0500Respiratory rate16 /minSuhas Garrett Other [employer] Other 02-24-2022 13:30-5038BtR8% (BldA) [Mass fraction]99 % Suhas Garrett Other [employer] Other 02-24-2022 13:30-0500Systolic blood vigsyiwr054 mm[Hg] Suhas Ugo Other [employer] Other 11-18-2021 13:30-0500Body .48 cmSuhas Garrett Other [employer] Other 11-18-2021 13:30-0500Body mass index (BMI) [Ratio] 25.97 kg/j9VpowfSuhas Garrett Other [employer] Other 11-18-2021 13:30-0500Body lcyppm30.41 kgSuhas Garrett Other [employer] Other 11-18-2021 13:30-0500Diastolic blood tyavhufx76 mm[Hg] Suhas Garrett Other [employer] Other 11-18-2021 13:30-0500Respiratory rate17 /minSuhas Garrett Other [employer] Other 11-18-2021 13:30-5299TxD0% (BldA) [Mass fraction]98 % Suhas Garrett Other [employer] Other 11-18-2021 13:30-0500Systolic blood ieakozxo953 mm[Hg] Suhas Garrett Other [employer] Other Encounters Encounter DateEncounter [facility] ProviderFacilityStart: 02-14-2025 End: 59-20-9415dxtaagfzrxVehutneJorge Weston MDFacility:[facility] Start: 01-14-2025 End: 21-05-4709Cnglvd outpatient visit 25 minutesShy Wolf MD Work Phone: [facility]healthComment on above:Nonrheumatic aortic valve stenosis (Primary Dx); 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; Hyperlipidemia, unspecified hyperlipidemia type; PMR (polymyalgia rheumatica) (Multi); Hypothyroidism, unspecified type; BMI 27.0-27.9,adult; Never smoked any substance; OverweightStart: 01-14-2025 End: 73-36-0610icypebihmpRKBKLK M IBRFormerly [facility] AmbulatoryStart: 12-21-2024 End: 37-94-5253Czoxhyvqve hospital visit by Julia Baker Echo/Vasc Room 2And[facility] HealthComment on above:Aortic valve stenosis, etiology of cardiac valve disease unspecifiedStart: 12-21-2024 End: 56-04-9683epcoysjzigIYCNMBSumma Health Akron Campustart: 12-07-2024 End: 70-63-9177Amoxit outpatient visit 15 Silkemayo Gibbs [place] BURGER Work Phone: uh [facility] HospitalComment on above: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 (Primary Dx); BMI 26.0-26.9,adultStart: 12-07-2024 End: 68-49-4471oqnbthkuuaIHNEEAtrium Health [facility] AmbulatoryStart: 10-25-2024 End: 47-16-6850ycubkzjjbaVdkfkao Vytautas Giedraitis MDFacility:[facility] Start: 09-13-2024 End: 59-33-5166nlokkhqfbhOmecpmc Vytautas Giedraitis MDFacility:[facility] Start: 07-28-2024 End: 22-95-0135wdwbgahqjqVwqnl UgoFacility:[facility] Start: 05-25-2024 End: 47-60-3652bjgodzqzqpHwlop KunsFahansen family hospital:[facility] Start: 04-16-2024 End: 09-32-4252Xdclmq outpatient visit 25 minutesShy Wolf MD Work Phone: uh [facility] HospitalComment on above:Aortic valve stenosis, etiology of cardiac valve disease unspecified (Primary Dx); Essential hypertension; Hyperlipidemia, unspecified hyperlipidemia type; Never smoked any substance; BMI 26.0-26.9,adult; Hypothyroidism, unspecified typeStart: 04-16-2024 End: 24-90-8895ewrfwrmpkvRTPOYF [facility] AmbulatoryStart: 02-11-2024 End: 18-64-7679Tzrplhsvmm hospital visit by Julia Baker [facility] on above:Nonrheumatic aortic valve stenosis; Aortic valve stenosis, etiology of cardiac valve disease unspecifiedStart: 02-11-2024 End: 94-09-6194rphkyjmrwbAVLGKR [facility]tart: 10-14-2023 End: 29-01-6625sazerycwjtItigd KunsFacility:[facility] Start: 09-03-2023 End: 46-21-3958dikfgvnuikDthdo GaelsFacility:[facility] Start: 07-18-2023 End: 50-11-0774bnwibvgeceKnjhv Gaels Other noQD [facility] Other Start: 32-59-2794Gtgxzoina encounterBryraquel MayosFPG [facility] [place]Start: 07-15-2023 End: 46-58-7740nekzvytddtXhkgd Kuns Other noQD [facility] Other Start: 74-04-2174Htzgdsfks encounterBryraquel MayosFP[facility] [place]Start: 07-10-2023 End: 01-58-4581edtotjmwsyFspvn Kuns Other noQD [facility] Other Start: 43-38-1925Gptheevul encounterBryraquel MayosFPG [facility] [place]Start: 07-07-2023 End: 59-83-4943zsafelkjlbXyjof Kuns Other noQD [facility] Other Start: 21-33-1537Dvtltwmgx encounterBryraquel [facility]osFP[facility] CastaliaStart: 07-04-2023 End: 73-82-0796snfjtclraaWvznf Kuns Other [employer] Other Start: 72-94-1758Zmnjdj outpatient visit 15 minutes Suhas [facility]FP[facility] CastaliaStart: 06-19-2023 End: 43-84-9722ersezxcoyxNuqeq Kuns Other [employer] Other Start: 09-69-3225Carvsbaji encounterSuhas MayoCory Family Medicine CastaliaStart: 06-19-2023 End: 16-89-2194Pvisih outpatient visit 25 minutesShy Wolf MD Work Phone: [facility] CenterComment on above:Aortic valve stenosis, etiology of cardiac valve disease unspecified; Essential hypertension; Hyperlipidemia, unspecified hyperlipidemia type; Never smoked any substanceStart: 05-30-2023 End: 85-27-5745qkvovmodhrTgsmt Kuns Other [employer] Other Start: 33-91-5517Uimhtt outpatient visit 25 minutes Suhas MayoadanLEYDI Family Medicine CastaliaStart: 05-28-2023 End: 89-26-7009aqnmppkprcLinsf Kuns Other [employer] Other Start: 80-45-3030Oogfgrqum encounterSuhas MayoDereckShravan Family Medicine CastaliaStart: 04-23-2023 End: 26-57-2560knoibhfjyxWsbhc Kuns Other [employer] Other Start: 92-96-0251Xqguanxwd encounterSuhas MayoDereckShravan [facility] Medicine CastaliaStart: 04-18-2023 End: 37-79-1121gbucrcjkotDemkl Kuns Other [employer] Other Start: 44-99-6333Ntkfqgzkv encounterSuhas MayoadanFPG Family Medicine CastaliaStart: 03-36-7493Wwpms UpdateSuhas Garrett Work Phone: [phone]xMay[facility] 250 DO Work Phone: Start: 02-28-2023 End: 85-49-3959ctnwwxaizjTjeds Kuns Other [employer] Other Start: 56-49-0179Tvatti outpatient visit 15 minutes Suhas GaelCory Family Medicine CastaliaStart: 82-74-7850trmfrpoisdJx. Suhas GarrettFranciscan Healthity:[id number]: 01-27-2023 End: 72-20-4630wrkguquwdmLlcqs Kuns Other [employer] Other Start: 14-24-9293Aingwmgya encounterBryraquel Sommers [facility] CastaliaStart: 42-83-3997Fposjr outpatient visit 25 minutesSuhas Garrett Work Phone: [phone]-MupqfM[place] [address] [place] Work Phone: Start: 73-52-3328lfxubdhxdeVq. Shy Agosto [facility] Facility:[id number]: 12-06-2022 End: 58-82-9887krfixybjwoAfmyc Kuns Other [employer] Other Start: 02-79-0180Jpzick outpatient visit 15 minutes Suhas GaelCory [facility] CastaliaStart: 09-20-2022 End: 73-10-0696rqtaxcjuptXdrqk Kuns Other [employer] Other Start: 61-11-8816Xqffrt outpatient visit 15 minutes Suhas GaelCory [facility] CastaliaStart: 08-14-2022 End: 80-05-9636whxsjwkcjgKgcoz Kuns Other [employer] Other Start: 06-34-3070Jpayxfevl encounterBryraquel GaelCory Family Medicine CastaliaStart: 07-22-2022 End: 38-64-4536lsaalfvaakCymwq Kuns Other [employer] Other Start: 82-38-7268Srlnno outpatient visit 15 minutes Suhas [facility] [place]aliaStart: 04-17-2022 End: 11-82-2972catypqotiwOnstc Kuns Other [employer] Other Start: 78-87-4323Toyajj outpatient visit 15 minutes Suhas ManciniG Family Medicine CastaliaStart: 04-10-2022 End: 33-52-3026kijmidzzlqEflmh Kuns Other [employer] Other Start: 89-25-8647Hjskowaiy encounterBryraquel GarrettFPG Family [facility] CastaliaStart: 04-03-2022 End: 21-89-6044wkgmwazixcQwzik Kuns Other [employer] Other Start: 57-74-3535Uuncckfyg encounterBryraquel GarrettFPG [facility] CastaliaStart: 04-02-2022 End: 19-53-3398zfbyebslbpUfuln Kuns Other [facility] [employer] Other Start: 34-42-9493Usbipddnx encounterBryraquel GarrettFPG [facility] CastaliaStart: 02-26-2022 End: 43-16-3502aykpsftbgrZsoid Kuns Other [facility] [employer] Other Start: 40-74-1926Bbwueztlo encounterBryraquel GarrettFPG [facility] CastaliaStart: 02-25-2022 End: 32-87-9535drenopyaxlUgkrn Kuns Other [employer] Other Start: 55-76-6560Iclxewnja encounterBryraquel MayosFP[facility] [place]aliaStart: 02-22-2022 End: 14-28-2445ettduubinhLibsv Kuns Other [facility] Other Start: 51-71-8498Wrbedn outpatient visit 25 minutes Suhas MayoadanLEYDI Family Medicine CastaliaStart: 77-46-8352Euaekcz encounter procedureSuhas Garrett Work Phone: [phone][facility]antCook [facility] [address] [place] Work Phone: Start: 02-20-2022 End: 33-44-0023xcomcdhbsoKXTKOLF M MANONFacility:O4Ehjxt: 02-14-2022 End: 95-88-5507epluhojlggPznvq Kuns Other [facility] Other Start: 94-62-1268Loykzs outpatient visit 25 minutes Suhas [facility] [place]Start: 01-11-2022 End: 83-74-2665keedrtbyghNacsu Kuns Other [facility] Other Start: 93-80-4149Ufxmapc evaluation of patient and reportBryraquel MayoadanLEYDI Family Medicine CastaliaStart: 27-65-9942Lguujhpih encounter Suhas GaeladanLEYDI Family Medicine CastaliaStart: 13-02-2032Etjyed outpatient visit 10 minutesSuhas Garrett Work Phone: [phone]-LzmpaCook Hospital 250 DO Work Phone: Start: 65-72-3393cughsfyerbCj. Bryan Patrick Kuns Facility:[id number]: 12-20-2021 End: 90-49-2693qmbmqfkbaoFwdut Kuns Other [employer] Other Start: 69-40-0069Lewxmxaan encounterSuhas MayoadanLEYDI Family Medicine CastaliaStart: 61-22-0684Qbthxv outpatient visit 25 minutesSuhas Garrett Work Phone: [facility] Work Phone: Start: 11-02-2021 End: 25-00-9662oxnmdavmhjBymmz Kuns Other [employer] Other Start: 47-88-9898Kcufasszw encounterBryraquel GarrettFPG [facility] CastaliaStart: 10-01-2021 End: 52-33-4037cuftfhwskoQqplu Kuns Other [employer] Other Start: 20-41-4614Wjtmhh outpatient visit 15 minutes Suhas GarrettFP[facility] CastaliaStart: 09-10-2021 End: 16-06-8987myaqgbxiozEjayg Kuns Other [employer] Other start: 86-02-3695Gjfpilrem encounterBryraquel GarrettFPG [facility] CastaliaStart: 08-20-2021 End: 87-47-1086tgwnybzuubZzwzm Kuns Other [employer] Other Start: 24-17-3699Vyqtaclsz encounterBryraquel GarrettFPG [facility] CastaliaStart: 08-02-2021 End: 34-23-2900mjybhxwfrcJrrxi Kuns Other [employer] Other Start: 74-27-0841Fkyyce outpatient visit 15 minutes Suhas GarrettFP[facility] CastaliaStart: 07-25-2021 End: 50-04-6846vizajmsxchWjguo Kuns Other [employer] Other Start: 50-37-0546Qwdjoixpy encounterBryraquel GarrettFPG [facility] CastaliaStart: 05-08-2021 End: 66-09-1499yakdlssmtoNhfsw Kuns Other [employer] Other start: 12-20-8196Foxzpegjp encounterCarterraquel Matthieu [facility] CastaliaStart: 04-26-2021 End: 84-09-7048jvwrogtllmFfsbn Kuns Other [facility] [employer] Other Start: 57-56-8232Wmjwct outpatient visit 25 minutes Suhas [facility] [place] Procedures DateProcedureProcedure Detail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Start: 62-25-1273Accn [facility] r-t 2d w/wom-mode compl spec&colr Clayton Wolf MD Work Phone: Start: 71-47-3567NxxeyovzqhrkrsgyHmtwb P Kuns Work Phone: Start: 36-72-6795HuexxmutyubuyuyaJabkg P Kuns Work Phone: AppendectomyBryan P Kuns Work Phone: CholecystectomyBryan P Kuns Work Phone: Operation on ovaryBryan P Kuns Work Phone: ThyroidectomyBryan P Kuns Work Phone: Total colonoscopyBryan P Kuns Work Phone: Plan of Treatment DateCare ActivityDetailAuthorStart: 17-91-7839NLlM/Tdap/Td Vaccines (2 - Td or Tdap)DTaP/Tdap/Td Vaccines (2 - Td or Tdap)[facility] Start: 01-26-2026 End: 88-93-7502Vytmego encounter /20/2026 11:00 AM EDT Office Visit [facility] [address] [facility] [address] [place] [address] Shy Wolf MD [address] [facility] [address], [address] [place] [address] [facility] CenterStart: 62-59-1909XomzwbfgkxpikctmPpxtajsrawdqin [facility]: 12-20-2025 End: 18-53-5142Uyenqnk encounter qdzgriccw01/14/2026 10:45 AM EDT Appointment [place] [address] [facility] [address] [place] [address] [facility]: 12-14-2025 End: 38-16-0757BN Heart TransthoracicTransthoracic Echo Complete Echocardiography Routine Nonrheumatic aortic valve stenosis Expected: 12/14/2025 (Approximate), Expires: 01/14/2027[facility] Service Area Work Phone: Comment on above:Expected: 12/14/2025 (Approximate), Expires: 01/14/2027Start: 03-01-2026Medicare Annual Wellness VisitMedicare Annual Wellness Visit (AWV)[facility]: 02-10-2025 EchocardiographyEchocardiogramUnSelect Medical [facility] [place]: 02-07-2025 Influenza vaccinationInfluenza Vaccine (#1)[facility] Start: 01-14-2025 End: 80-50-5618JD Heart TransthoracicTransthoracic Echo Complete Echocardiography Routine Aortic valve stenosis, etiology of cardiac valve disease unspecified Expected: 01/14/2025 (Approximate), Expires: 04/16/2026[facility] Service Area Work Phone: Comment on above:Expected: 01/14/2025 (Approximate), Expires: 04/16/2026Start: 01-14-2025 End: 70-06-9096Vgkptvs encounter tcfwnyzfq40/08/2025 11:00 AM EDT Office Visit [address] [place] [address] Shy Wolf MD [address] [facility] [address], [address] [place] [address] [facility]: 12-21-2024 End: 12-95-5035Wrpevvh encounter antcsfdch71/15/2025 12:30 PM EDT Appointment [place] [address] [place] [address] [place] [address] [facility]: 22-93-2300PSZBL-19 Vaccine ( season)COVID-19 Vaccine ( season)[facility]: 03-16-2024 End: 94-41-0755Xujxfwb encounter mivfmbhow60/08/2024 11:20 AM EDT Office Visit [address] [address] Shy Wolf MD [address] [facility] [address], [address] [address] [facility]: 58-18-7854Xxmbzvgay for osteoporosisBone Density [facility]: 02-11-2024 End: 70-96-6282Bnfvntp encounter dbsrnerfk19/04/2024 12:30 PM EDT Appointment [address] [phone] [facility]: 07-90-5875NGETI-19 Vaccine ( season)COVID-19 Vaccine ( season)[facility]: 02-08-2024 Influenza vaccinationInfluenza Vaccine (#1)[facility] Start: 02-08-2024 End: 54-60-6914UP Heart TransthoracicTransthoracic Echo (TTE) Complete Echocardiography Routine Aortic valve stenosis, etiology of cardiac valve disease unspecified Expected: 02/08/2024 (Approximate), Expires: 06/19/2025[facility] Service Area Work Phone: Comment on above:Expected: 02/08/2024 (Approximate), Expires: 06/19/2025Start: 24-79-3446LEE, Provider: Shy Wolf, Status: Pen, Time: 11:00 AMFUV, Provider: Shy Wolf, Status: Pen, Time: 11:00 AMMeghan [place] [address] DO Work Phone: Start: 05-61-8803HPPIY-19 Vaccine (5 - Moderna series) COVID-19 Vaccine (5 - Moderna series)[facility]: 97-74-0258FBLL, Provider: SAMUEL HHVI ULTRASOUND 01,[id number], Status: Pen, Time: 10:45 AMECHO, Provider: SAMUEL YII ULTRASOUND 01,[id number], Status: Pen, [facility]: [facility]:45 [facility] DO Work Phone: Start: 50-16-5023CJS, Provider: Shy Wolf, Status: Pen, Time: 11:20 AMFUV, Provider: Shy Wolf, Status: Pen, Time: 11:20 AM[facility] Work Phone: Start: 75-98-4025LSOXZIN, Provider: SAMUEL YII ULTRASOUND 01,[id number], Status: Pen, Time: 12:30 PMCAROTID, Provider: SAMUEL HHVI ULTRASOUND 01,[id number], Status: Pen, Time: 12:30 PM[facility] Work Phone: start: 10-17-1773LMRL, Provider: SAMUEL HHVI ULTRASOUND 01,[id number], Status: Pen, Time: 10:45 AMECHO, Provider: SAMUEL HHVI ULTRASOUND 01,[id number], Status: Pen, Time: 10:45 [facility] Work Phone: start: 86-19-0548YYDVJHH, Provider: SAMUEL HHVI ULTRASOUND 01,[id number], Status: Pen, Time: 2:30 PMCAROTID, Provider: SAMUEL HHVI ULTRASOUND 01,[id number], Status: Pen, Time: 2:30 PMTri[facility] Work Phone: start: 04-50-6485KKMH, Provider: SAMUEL HHVI ULTRASOUND 01,[id number], Status: Pen, Time: 1:30 PMECHO, Provider: SAMUEL HHVI ULTRASOUND 01,[id number], Status: Pen, Time: 1:30 PMTri[facility] Work Phone: Start: 08-01-9473ELXRCJAC, Provider: MAGDA DANIEL CONTROL SUPERVISOR 1,[id number], Status: Pen, Time: 11:00 AMNURSEVST, Provider: MAGDA DANIEL CONTROL SUPERVISOR 1,[id number], Status: Pen, Time: 11:00 AM[facility] Work Phone: Start: 09-21-5869Oppwjqacz B Vaccines (1 of 3 - Risk 3-dose series)Hepatitis B Vaccines (1 of 3 - Risk 3-dose series)[facility]: 14-77-9618Kslkvmhny A Vaccines (1 of 2 - Risk 2- dose series)Hepatitis A Vaccines (1 of 2 - Risk 2-dose series)[facility]: 23-54-5784Ckkmuzkguw measurementCreatinine Level [facility]: 73-03-7575Wlrby panelLipid Panel [facility]: 03-04-1937Medicare Annual Wellness Visit Medicare Annual Wellness Visit (AWV)[facility]: 27-33-0508Tpqvveuxs measurementPotWillow Crest Hospital – [facility] Start: 12-51-7928Uaosdaa stimulating hormone measurementTSAllianceHealth Midwest – Midwest CityECG 12 LeadECG 12 Lead ECG Routine 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 Ordered: 12/08/2024[facility] Area Work Phone: Comment on above:Ordered: 12/08/2024 End: 42-44-5073MJ Heart TransthoracicOlean [facility] Work Phone: Comment on above:Once for 1 Occurrences starting 02/11/2024 until 02/11/2024 Immunizations Immunization DateImmunizationNotesCare HuleiekeObaxddoc92-31-3845Xaagnnqelfyl conjugate vaccine, 20-valent (PREVNAR 20)Shy Wolf MD Work Phone: [facility] Work Phone: [phone] COVID-19 vaccine, 12 years and older (50mcg/0.5mL)(Spikevax)Shy Wolf MD Work Phone: [facility] Work Phone: [phone]upxg trivalent influenza vaccine, adjuvanted, preservative freeShy Wolf MD Work Phone: [facility] Work Phone: [phone] virus vaccine, unspecified formulationReuben Burns [employer] J[employer]KER Work Phone: [facility] Work Phone: [phone] SYNCYTIAL VIRUS (RSV), ELIGIBLE PTS, 0.5 ML (ABRYSVO)Shy Wolf MD Work Phone: [facility] Work Phone: [phone], Seasonal, Quadrivalent, AdjuvantedShy Wolf MD Work Phone: [facility] Work Phone: [phone] COVID-19 vaccine, 12 years and older (50mcg/0.5mL)(Spikevax)Shy Wolf MD Work Phone: [facility] Work Phone: [phone] virus vaccine, unspecified formulationEly 2[facility] Work Phone: [phone] COVID-19 Bivalent 50 MCG/0.5ML Intramuscular SuspensionSuhas Garrett Work Phone: [facility] 681 DO Work Phone: [phone] Quadrivalent 0.5 ML Intramuscular Prefilled SyringeBryraquel P Ugo Work Phone: [phone]-QpljwCook Hospital 250 DO Work Phone: [phone], seasonal, injectableBryan Kuns Other [facility] [employer] Other [id number] COVID-19 Vaccine 100 MCG/0.5ML Intramuscular SuspensionBryan P Kuns Work Phone: [facility] Work Phone: [phone] COVID-19 Vaccine 100 MCG/0.5ML Intramuscular SuspensionBryan P Kuns Work Phone: [facility] Work Phone: [phone], seasonal, injectableBryan Kuns Other [employer] Other 03102256-05-2498Exllywp COVID-19 Vaccine 100 MCG/0.5ML Intramuscular SuspensionBryan P Kuns Work Phone: [facility] Work Phone: [phone] [phone]ghs COVID-19 Vaccine 100 MCG/0.5ML Intramuscular SuspensionBryan P Kuns Work Phone: [facility] Work Phone: [phone]liinjnewg polysaccharide vaccine, 23 valentBryan Gaels Other [facility] [employer] Other 09-497790-73-6550Gygpyyun trivalent influenza vaccine, adjuvanted, preservative freeBryan P Kuns Work Phone: [facility] Work Phone: [phone]zuzso, seasonal, injectableBryan Kuns Other [employer] Other 09-968106-73-7015kzgfwrrhc virus vaccine, unspecified formulationBryan P Kuns Work Phone: [facility] Work Phone: [phone]jknogpag, seasonal, injectableBryan Kuns Other [employer] Other 11-275796-30-1624ooptdj vaccine recombinantBryan Kuns Other [employer] Other 10-658946-99-5755invckottt, high dose seasonal, preservative-freeBryan P Kuns Work Phone: [facility] Work Phone: [phone]jfdjep, seasonal, injectableBryan Kuns Other [employer] Other [id number] vaccine recombinantBryan Kuns Other [employer] Other 12083238-84-6561lgyocrn toxoid, reduced diphtheria toxoid, and acellular pertussis vaccine, adsorbedBryan Kuns Other [employer] Other 10075561-42-1289Dsgrwnwf trivalent influenza vaccine, adjuvanted, preservative freeShy Wolf MD Work Phone: [facility] Work Phone: [phone]vlw virus vaccine, unspecified formulationBryan P Kuns Work Phone: [facility] Work Phone: [phone]eunuol virus vaccine, unspecified formulationBryan P Kuns Work Phone: [facility] Work Phone: [phone]ddyqc trivalent influenza vaccine, adjuvanted, preservative freeBryan P Kuns Work Phone: [facility] Work Phone: [phone]) [phone]oalcrinmp conjugate vaccine, 13 valent Shy Wolf MD Work Phone: [facility] Work Phone: [phone]vgcpeuadf conjugate vaccine, 13 valent Suhas Gaels Other [facility] [employer] Other 10-628622-76-3524Jmbzyxrz trivalent influenza vaccine, adjuvanted, preservative freeCarteran P Gaels Work Phone: [facility] Work Phone: [phone]tusyacem virus vaccine, unspecified formulationBryan P Kuns Work Phone: [facility] Work Phone: [phone]rjeeijgsstl conjugate vaccine, 13 valent Suhas Dalton Garrett Work Phone: [facility] Work Phone: [phone]crphx, injectable, quadrivalent, contains preservativeBryan P Kuns Work Phone: [facility] Work Phone: [phone]apzxqwtm virus vaccine, unspecified formulationBryan P Kuns Work Phone: [facility] Work Phone: [phone]zajefzhl, seasonal, injectable, preservative freeCarteran P Kuns Work Phone: [facility] Work Phone: [phone]maitvjtn virus vaccine, whole virusCarteran P Gaels Work Phone: [facility] Work Phone: [phone]pjidvvjm, seasonal, injectableBryan P Kuns Work Phone: [facility] Work Phone: [phone]tlltogpd virus vaccine, unspecified formulationCarteran P Kuns Work Phone: [facility] Work Phone: [phone]gmxijnrq, injectable, quadrivalent, contains preservativeBryan Kuns Other [employer] Other 01605161-37-0669aotdbzjgz virus vaccine, unspecified formulationBryan P Kuns Work Phone: [facility] Work Phone: [phone] 960-752101-193630-33-2322pvrzazsgj virus vaccine, unspecified formulationBryan P Kuns Work Phone: [facility] Work Phone: [phone]afqcpx virus vaccine, unspecified formulationBryan P Kuns Work Phone: [facility] Work Phone: [phone]ez zgqpdiuua-V3C3-14, preservative-free, injectableBryan P Kuns Work Phone: [facility] Work Phone: [phone] [phone]peikja virus vaccineBryan P Kuns Work Phone: [facility] Work Phone: [phone]gytafrqed polysaccharide vaccine, 23 valentBryan P Kuns Work Phone: [facility] Work Phone: Payers DatePayer CategoryPayerPolicy [id number] Care (Private)[facility] .[id number] Private Health [id number] [id number] 2..9.748353.82516245-50-8167Sejvaeg Health Insurance [id number] 2..3.24047[id number] 2..1.473004.3.57[id number] 2..1.780590.3.57[id number] 2..1.746127.3.57[id number] 2..1.793144.3.57[id number] 2..1.729357.3.57[id number] 2.0.1.724608.3.57[id number] 2.0.1.530491.3.57[id number] 2.0.1.041697.3.57[id number] 2.0.1.713694.3.57[id number] 2.16.840.1.333891.3.57[id number] 2.16.840.1.875884.3.57[id number] 2.16.840.1.9[id number] 2.16.840.1.349242.3.579.2.531 [id number] 2.16.840.1.8[id number] 2.16.840.1.4[id number] 2.16.840.1.845529.3.579.2.531 Social History DateTypeDetailFacilityUnknown if ever smokedPeacehealth Southwest Medical Center [employer] Other Start: 06-19-2023 End: 33-36-6409Ecw Assigned At BirthNoranken [facility] [employer] Other Start: 06-19-2023 End: 84-41-5981Hdzplzvn useCaffeine useTrihealth Work Phone: Start: 86-63-7028Jgbqjeu smoking status NHISNever smoked tobaccoUnMercy Health Lorain Hospital Work Phone: Start: 69-45-1316Ryecblx use and exposureSmokeless tobacco non-userUnMercy Health Lorain Hospital Work Phone: Start: 79-42-7912Zyd Assigned At BirthNot on file [facility] Work Phone: Start: 06-09-2023 End: 19-57-2530Ntjaqhge to SARS-CoV-2 (event)Not sureUnMercy Health Lorain HospitalStart: 04-16-2024 End: 68-74-2512Vtgayncai beverage intakeCurrent drinker of alcohol (finding) [facility] Work Phone: Start: 13-37-5781BqvRjrrlpBujshitfjeSt. Vincent Hospital Clinical Notes 02-15-2015 to 01-14-2025 Note Date & DalmLedbFhzdwngf07-06-6896 History of Present illness Narrative* Shy Wolf [...] exam, discussion and plan. documented in this encounterTriHealth Work Phone: 1(224) 926-583708-08-2025 Instructions* Patient Instructions* Richelle Frey LPN - [...] through Care Everywhere. * Heart Healthy Diet ([place]) documented in this encounterTriHealth Work Phone: 1(149) 314-411407-01-2025 History of Present illness Narrative* Reuben Burns [...] in patient record. Reuben Burns MSN, JENNYFER, PMHNP-[facility] [place], [place] Please excuse any errors in grammar or translation related to this dictation. Voice recognition software was utilized to prepare this document. documented in this [facility] Work Phone: 1(777) 698-600307-01-2025 Instructions* Patient Instructions* JENNYFER Garsia - 12/07/2024 [...] Dr. Wolf as scheduled documented in this encounterUnMercy Health Lorain Hospital Work Phone: 1(256) 492-470607-01-2025 Miscellaneous Notes* Addendum Note - JENNYFER Garsia - 12/07/2024 3:00 PM EDTAddended by: REUBEN BURNS on: 12/08/2024 02:08 PM Modules accepted: Orders documented in this encounterUnMercy Health Lorain Hospital Work Phone: 1(336) 440-991907-01-2025 Note* Addendum Note - ARGELIA Garsia CNP - 12/07/2024 3:00 PM EDTAddended by: REUBEN BURNS on: 12/08/2024 02:08 PM Modules accepted: Orders [facility] Work Phone: 1(317) 911-504411-08-2024 History of Present illness Narrative* Shy Wolf [...] exam, discussion and plan. documented in this [facility] Work Phone: 1(344) 298-602111-08-2024 Instructions* Patient Instructions* Sherin Mendez LPN - [...] 9 month follow up documented in this [facility] Work Phone: 1(597) 697-996102-09-2024 Evaluation note* Encounter Date Diagnosis Assessment Notes Treatment Notes Treatment Clinical Notes Jul, PMR (polymyalgia rheumatica) (IC D-10 - M35.3) [employer] Other 02-06-2024 Evaluation note* Encounter Date Diagnosis Assessment Notes Treatment Notes Treatment Clinical Notes Jul, PMR (polymyalgia rheumatica) (IC D-10 - M35.3) [employer] Other 02-01-2024 Evaluation note* Encounter Date Diagnosis Assessment Notes Treatment Notes Treatment Clinical Notes Jul, Hypothyroidism (ICD-10 - E03.9) [employer] Other 01-29-2024 Evaluation note* Encounter Date Diagnosis Assessment Notes Treatment Notes Treatment Clinical Notes Jun, Hypothyroidism (ICD-10 - E03.9) Jun,Hyperthyroidism (ICD-10 - E05.90) [employer] Other 01-26-2024 Evaluation note* Encounter Date Diagnosis [...] requires sooner she is welcome to call. [employer] Other 01-11-2024 Evaluation note* Encounter Date Diagnosis Assessment Notes Treatment Notes Treatment Clinical Notes Jun, PMR (polymyalgia rheumatica) ( D-10 - M35.3) [employer] Other 01-11-2024 History of Present illness Narrative* [...] being tapered gradually Shy Wolf MD, [facility] Review of Systems All other [...] of Shy Wolf MD. documented in [facility] encounter[facility] Work Phone: 1(676) 152-229401-11-2024 Instructions* Patient Instructions* Yevgeniy Cortez MA - [...] time of your visit. documented in this [facility]Tri[facility] Work Phone: 1(950) 954-374812-22-2023 Evaluation note* Encounter Date Diagnosis Assessment Notes [...] recommend the patient get the RSV vaccine. [employer] Other 12-20-2023 Evaluation note* Encounter Date Diagnosis Assessment Notes Treatment Notes Treatment Clinical Notes May, Hypertension (ICD-10 - I10) May,Hypothyroidism (ICD-10 - E03.9) [employer] Other 11-10-2023 Evaluation note* Encounter Date Diagnosis Assessment Notes Treatment Notes Treatment Clinical Notes Apr, PMR (polymyalgia rheumatica) (IC D-10 - M35.3) [employer] Other 09-22-2023 Evaluation note* Encounter Date Diagnosis Assessment Notes Treatment Notes Treatment Clinical Notes Feb, PMR (polymyalgia rheumatica) (IC D-10 - M35.3) She was encouraged to take 2.5mg daily. Patient is agreeable. Feb,Hypertension (ICD-10 - I10) Blood pressure is satisfactory, she is to follow with cardiology as scheduled. [employer] Other 08-21-2023 Evaluation note* Encounter Date Diagnosis Assessment Notes Treatment Notes Treatment Clinical Notes Jan, Hypertension (ICD-10 - I10) [employer] Other 06-30-2023 Evaluation note* Encounter Date Diagnosis [...] very [facility] She will see Dr. Wolf in three weeks therefore was advised to make sure she discusses the swelling with him and see what he would like to do. Patient is agreeable. [employer] Other 04-14-2023 Evaluation note* Encounter Date Diagnosis [...] tablets daily. We will continue to monitor. [employer] Other 03-08-2023 Evaluation note* Encounter Date Diagnosis Assessment Notes Treatment Notes Treatment Clinical Notes Aug, PMR (polymyalgia rheumatica) (IC D-10 - M35.3) [employer] Other 02-13-2023 Evaluation note* Encounter Date Diagnosis [...] states she has an upcoming appointment with program production specialist and she will discuss making medication changes at that time. [employer] Other 11-09-2022 Evaluation note* Encounter Date Diagnosis [...] she can cut Apr,Hyperlipidemia (ICD-10 - E78.5) [employer] Other 11-02-2022 Evaluation note* Encounter Date Diagnosis Assessment Notes Treatment Notes Treatment Clinical Notes Apr, PMR (polymyalgia rheumatica) (IC D-10 - M35.3) [employer] Other 10-26-2022 Evaluation note* Encounter Date Diagnosis Assessment Notes Treatment Notes Treatment Clinical Notes Mar, Lumbar back pain (ICD-10 - M54.5 0) [employer] Other 09-20-2022 Evaluation note* Encounter Date Diagnosis Assessment Notes Treatment Notes Treatment Clinical Notes Feb, Elevated liver function tests (I CD-10 - R79.89) [employer] Other 09-16-2022 Evaluation note* Encounter Date Diagnosis Assessment Notes Treatment Notes Treatment Clinical Notes Feb, Acute pain of left shoulder (ICD -10 - M25.512) [facility] report reviewed from 02/20/22 . The [...] pain (ICD-10 - R10.13) The patient advised Curlew could be causing her GI upset , [...] month Boniva at her next office visit. [employer] Other 09-08-2022 Evaluation note* Encounter Date Diagnosis [...] (ICD-10 - M85.80) Noted on Lumbar x-ray. [employer] Other 08-05-2022 Evaluation note* Encounter Date Diagnosis Assessment Notes Treatment Notes Treatment Clinical Notes Jan, COVID-19 (ICD-10 - U07.1) [employer] Other 08-05-2022 Evaluation note* Encounter Date Diagnosis Assessment Notes Treatment Notes Treatment Clinical Notes Jan, Cough (ICD-10 - R05.9) In house covid test is positive. Treatment plan discussed in TE. [employer] Other 07-14-2022 Evaluation note* Encounter Date Diagnosis Assessment Notes Treatment Notes Treatment Clinical Notes Dec, PMR (polymyalgia rheumatica) (IC D-10 - M35.3) [employer] Other 05-27-2022 Evaluation note* Encounter Date Diagnosis Assessment Notes Treatment Notes Treatment Clinical Notes October, PMR (polymyalgia rheumatica) (IC D-10 - M35.3) [employer] Other 04-25-2022 Evaluation note* Encounter Date Diagnosis [...] The patient encourged to continue following with program production specialist annually in December as scheduled. I did forward a copy of most current blood work results . [employer] Other 04-04-2022 Evaluation note* Encounter Date Diagnosis Assessment Notes Treatment Notes Treatment Clinical Notes Sep, PMR (polymyalgia rheumatica) (IC D-10 - M35.3) Sep,Hypertension (ICD-10 - I10) [employer] Other 02-24-2022 Evaluation note* Encounter Date Diagnosis [...] if needed. We will continue to montior. [employer] Other 02-16-2022 Evaluation note* Encounter Date Diagnosis Assessment Notes Treatment Notes Treatment Clinical Notes Jul, PMR (polymyalgia rheumatica) (IC D-10 - M35.3) [employer] Other 11-30-2021 Evaluation note* Encounter Date Diagnosis Assessment Notes Treatment Notes Treatment Clinical Notes Apr, PMR (polymyalgia rheumatica) (IC D-10 - M35.3) [employer] Other 11-18-2021 Evaluation note* Encounter Date Diagnosis [...] Apr,Hypothyroidism (ICD-10 - E03.9) Blood work ordered. [employer] Other [id number] History general Narrative - Reported* Type Description Date Medical History [facility] Uofivgp9761, 02-15-15-mammogram-negativeMedical History 01/20126320-uoaemwfjuuf-uxexlg, repeat in 3 yrsMedical Jwueham06/2017- colonoscopy- normalMedical Historyf/u with cardiology NOHCMedical HistoryECHO 09/2016Surgical HistoryAppendectomySurgical HistoryGallbladder RemovalSurgical HistoryOvarian Cyst RemovalSurgical HistoryCoccyx repairSurgical HistoryCataracts Bilateral EyesSurgical Historythyroidectomy Dr. Forbes10/14/2019Hospitalization History Childbirth x3Ujepxqlkujddcgi HistorySee Above [employer] Other Evaluation noteNo InformationNortCrossTx Other Evaluation note* Diagnosis Aortic valve stenosis, etiology of cardiac valve disease unspecified Essential hypertension Unspecified essential hypertension Hyperlipidemia, unspecified hyperlipidemia type Never smoked any substance documented in this encounter [facility] Work Phone: Evaluation note* Diagnosis Aortic valve stenosis, etiology of cardiac valve disease unspecified- Primary Essential hypertension Unspecified essential hypertension Hyperlipidemia, unspecified hyperlipidemia type Never smoked any substance BMI 26.0-26.9,adult Hypothyroidism, unspecified type documented in this encounter [facility] Work Phone: Evaluation note* Diagnosis Nonrheumatic aortic valve stenosis Aortic valve stenosis, etiology of cardiac valve disease unspecified documented in this encounter [facility] Work Phone: Evaluation note* Diagnosis 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- Primary BMI 26.0-26.9,adult documented in this encounter [facility] Work Phone: Evaluation note* Diagnosis Aortic valve stenosis, etiology of cardiac valve disease unspecified documented in this encounter [facility] Work Phone: Evaluation note* Diagnosis Nonrheumatic aortic valve stenosis- Primary 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 Hyperlipidemia, unspecified hyperlipidemia type PMR (polymyalgia rheumatica) (Multi) Polymyalgia rheumatica Hypothyroidism, unspecified type BMI 27.0-27.9,adult Never smoked any substance Overweight documented in this encounter [facility] Work Phone: Reason for visit Narrative* CV Imaging (Routine) - AuthorizedSpecialtyDiagnoses / ProceduresReferred By ContactReferred To ContactCardiology Diagnoses Aortic valve stenosis, etiology of cardiac valve disease unspecified Procedures Transthoracic Echo Complete NC ECHO TTHRC R-T 2D W/WOM-MODE COMPL SPEC&COLR D Shy Wolf MD [address] [facility] 2, [address] [address] Phone: tel: fax: Referral IDStatusReasonStart DateExpiration DateVisits RequestedVisits [id number] Perform Procedure [facility] Work Phone: Chief Complaint * LAVONNE VILLATORO [...] tapered gradually * Shy Wolf MD, [facility] * LAVONNE VILLATORO is being [...] PMR (polymyalgia rhe umatica) (M35.3) Referral Organization [facility] [place] Referring Provider First Name Suhas Referring Provider Last Name Ugo Referring Provider Specialty Family Prac sukhjinder Referred Organization [facility] Referred Address [address] [place], [place],[address] Referred Provider Specialty Rheumatology Referral Priority Routine General Notes Zaida Tinsley 10:11:01 AM >received today, completed CC referral form and faxed to their referring physicians department. Patient will be contacted by the CC to schedule her appointment. SpecialtyDiagnoses / ProceduresReferred By ContactReferred To ContactCardiology Diagnoses Aortic valve stenosis, etiology of cardiac valve disease unspecified Procedures Transthoracic Echo (TTE) Complete NC ECHO TTHRC R-T 2D W/WOM-MODE COMPL SPEC&COLR D Shy Wolf MD [address] [place] [address] 2, [address] [place] [address] Referral IDStatusReasonStbig bar DateExpiration DateVisits RequestedVisits [id number] Review Perform Procedure [id number] / ProceduresReferred By ContactReferred To ContactCardiology Diagnoses Aortic valve stenosis, etiology of cardiac valve disease unspecified Procedures Follow Up In Cardiology Shy Wolf MD [address] [place] [address] 2, [address] [address] Shy Wolf MD [address] [facility] [address], [address] [address] Referral IDStatus[facility] DateExpiration DateVisits RequestedVisits [id number]/11/20241/10/202511 Additional Source Comments REASON FOR VISIT (unrecogniz ed section and content) ReasonCommentsFollow-up9 month, echocardiogram resultsSpecialtyDiagnoses / ProceduresReferred By ContactReferred To ContactCardiology Diagnoses Aortic valve stenosis, etiology of cardiac valve disease unspecified Procedures Follow Up In Cardiology Shy Wolf MD [address] [place] [address], [address] [address] Phone: tel: fax: Shy Wolf MD [address] [place] [address], [place] [id number] Phone: tel: fax: Referral IDStatusReasonStart DateExpiration DateVisits RequestedVisits [id number]/8/202411/8/[id number]-xh5jCsnixo CommentsFollow-kj3qLaokkopc IDStatusReasonStart DateExpiration DateVisits RequestedVisits [id number]/11/20241/463493Yfdutcslh Diagnoses / ProceduresReferred By ContactReferred To ContactCardiology Diagnoses Nonrheumatic aortic valve stenosis Procedures Transthoracic Echo (TTE) Complete NC ECHO TRANSTHORC R-T 2D W/WO M-MODE REC F-UP/LMTD NC DOP ECHOCARD COLOR FLOW VELOCITY MAPPING NC DOP ECHOCARD PULSE WAVE W/SPECTRAL F-UP/LMTD STD Shy Wolf MD [address] [place] [id number] Referral IDStatusReasonStart DateExpiration DateVisits RequestedVisits [id number] Perform Procedure /[id number]-xp ClearancePOC for spinal cord stimulator, scheduled 12.13.[address] Weston. INFORMATION SOURCE (unrecogn ized section and content) DATE CREATED AUTHOR 03/06/2022 [facility] DATE CREATED AUTHOR AUTHOR'S ORGANIZ ATION 12/25/2022 [facility] DATE CREATED AUTHOR AUTHOR'S ORGANIZ ATION 12/25/2022 [employer] DATE CREATED AUTHOR AUTHOR'S ORGANIZ ATION 03/03/2023 [facility] DATE CREATED AUTHOR AUTHOR'S ORGANIZ ATION 07/29/2024 [facility] DATE CREATED AUTHOR AUTHOR'S ORGANIZ ATION 12/25/2024 [facility] DATE CREATED AUTHOR AUTHOR'S ORGANIZ ATION 01/16/2025 [facility] DATE CREATED AUTHOR AUTHOR'S ORGANIZ ATION 02/23/2025 [facility] Care Teams (unrecognized sec tion and content) Team MemberRelationshipSpecialtyStart DateEnd Date Suhas Garrett DO PCP - General06/09/99Team MemberRelationshipSpecialtyStart DateEnd Date Suhas Garrett DO [address] [place] [address] PCP - [facility] Medicine01/30/24Team MemberRelationshipSpecialtyStart DateEnd Date Suhas Garrett DO [address] [place] [address] [facility]01/30/24Team MemberRelationshipSpecialtyStart DateEnd Date Suhas Garrett DO [address] [place] [address] PCP - GeneralFamily Medicine01/30/24Team MemberRelationshipSpecialtyStart DateEnd Date Suhas Garrett DO [address] [place] [address] PCP - GeneralFamily Medicine01/30/24Team MemberRelationshipSpecialtyStart DateEnd Date Suhas Garrett DO [address] [place] [address] PCP - GeneralFamily Medicine01/30/24 FOR RECORDS PERTAINING [...] BE BASED ON THE PRIMARY CLINICAL RECORDS. [facility]. provides no warranty or guarantee of the accuracy or completeness of information in this document.
--- OUTSIDE RECORDS SUMMARY | 2025-04-09 09:45 | XMS_ITS | Clinical Summary ---
Author Organization [facility] Address [address] [place] [address] Phone Care Team Providers Care Bus Driver Supervisor Name Role Phone Suhas Arizmendi DO Primary Care Provider [phone] Allergies Active AllergyReactionsCriticalityNoted FpaaNhsmqntjYxlbffohvhuHhxjo59/27/2023 Eye pain XzzkmipbozwIqehwXbpl78/27/2443IcjprgirrrHikzd86/01/2025 Hair loss HydrocodoneGI LpmoyEkynfd78/11/9674EyddapiunHwktAww78/27/2023Valproic Acid Gnuldey2406/04/2023 Medications MedicationSigDispense QuantityRefillsLast FilledStart DateEnd DateStatus multivit-min/ferrous [...] Problems ProblemNoted DateDiagnosed DateBMI 27.0-27.9,adult04/16/2024Never smoked any dcmsaatju74/11/2024ortic sgzldbyw24/27/2023arotid bruit06/04/2023White coat syndrome with diagnosis of ckvaprittxdz13/27/7693Zhmpnkxcqpspse73/27/2023 Peisiwhboedqld19/27/2023Murmur, ftjwrat2606/04/2023MR (polymyalgia rheumatica) 06/04/2023 Encounters DateTypeDepartmentCare LkynMihkxynskkl17/08/2025 11:00 [address] EDTOffice [address] [place] [address] Michel Wolf MD Nonrheumatic aortic valve stenosis (Primary Dx); 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; Hyperlipidemia, unspecified hyperlipidemia type; PMR (polymyalgia rheumatica) ([facility]); Hypothyroidism, unspecified type; BMI 27.0-27.9,adult; Never smoked any substance; Imzwnlkruv93/08/2025Travelfrom Last 3 Months Immunizations ImmunizationAdministration DatesNext DueFlu vaccine, trivalent, preservative free, HIGH-DOSE, age 65y+ (Fluzone)03/09/2019Flu vaccine, trivalent, preservative free, age 6 months and greater (Fluarix/Fluzone/Flulaval)04/05/2014 Influenza Whole03/09/2014Influenza, Seasonal, Quadrivalent, Vtggdchcfr09/25/2023 ,03/21/2022Influenza, Rbyancbxdre26/01/2018,04/09/2017,03/09/2016,03/09/2015, 03/09/2013,06/09/2011,06/09/2010,06/09/2009Influenza, injectable, quadrivalent 04/07/2015,04/14/2012Influenza, seasonal, pummjklaoa61/01/2020,03/04/2019 Influenza, trivalent, bfykqcqaru09/30/2024,03/06/2020,03/16/2018,03/28/2017, 04/01/2016Moderna COVID-19 vaccine, 12 years and older (50mcg/0.5mL)(Spikevax) 04/07/2024,04/02/2023Moderna COVID-19 vaccine, bivalent, blue cap/uribe label *Check age/dose*04/17/2022Novel vnmxcxkig-U7Y0-99, preservative-free05/30/2009 Pneumococcal conjugate vaccine, 13-valent (PREVNAR 13)05/24/2016,05/23/2016, [...] InformationValueDate RecordedSex Assigned at BirthNot on fileLegal IrfGmrmjz60/25/2022 8:57 AM ESTGender Identity Not on fileSexual OrientationNot on file Last Filed Vital Signs Vital SignReadingTime TakenCommentsBlood Spvhyztz572/7808 11:07 AM EDT Ucadb0385/08/2025 11:07 AM EDTTemperature--Respiratory Rate--Oxygen Saturation-- Inhaled Oxygen Concentration--Tesnrw04 kg (150 lb)01/14/2025 11:07 AM EDTHeight 157.5 cm (5' 2 )01/14/2025 11:07 AM EDTBody Mass Index27.44001/14/2025 11:07 AM EDT Plan of Treatment DateTypeDepartmentCare Team (Latest Contact Info)Krpowcernnq94/14/2026 9:45 AM EDTAppointment [facility] [address] [place] [id number] 01/26/2026 11:00 AM EDTOffice Visit [facility] [address] [facility] [address] [place] [phone] Michel Wolf MD [address] [facility] [address], [address] [place], [place] [phone] Health MaintenanceDue DateLast DoneCommentsLipid Panel1936TSH Level 1936Hepatitis A Vaccines (1 of 2 - Risk 2-dose series)08/11/1955Hepatitis B Vaccines (1 of 3 - Risk 3-dose series)1996Bone Density Scan02/19/2024 02/18/2022Influenza Vaccine (#1)51, 04/02/2023, 03/21/2022, Additional history existsCOVID-19 Vaccine ( season)2025 04/07/2024, 04/02/2023, 04/17/2022, Additional history existsMedicare Annual Wellness Visit (AWV)602/, 04/28/2020DTaP/Tdap/Td Vaccines (2 - Td or Tdap)Zoster FbpiftgvKrsjyomjf79/26/2019, 02/04/2019, 10/19/2007RSV High Risk: (Elderly (60+) or Population)Completed 3Pneumococcal OqnzigeCbqsavloo59/15/2024, 04/28/2020, 05/24/2016, Additional history existsHIB VaccinesAged OutNo [...] DateEnd Date Suhas Arizmendi DO [address] [place] [address] [facility]01/30/24
--- OUTSIDE RECORDS SUMMARY | 2025-04-09 09:45 | XMS_ITS | Clinical Summary ---
Author Organization [facility] Address [address] [place] [facility] [address] Care Team Providers Care Cutter Grinder Name Role Phone Unavailable Primary Care Provider Unavailabl e Social History Tobacco UseTypesPacks/DayYears UsedDateSmoking Tobacco: Never Assessed CommentsUnknownSex and Gender InformationValueDate RecordedSex Assigned at Not on fileLegal PgeUhadso25/15/2023 7:21 PM EDTGender IdentityNot on fileSexual OrientationNot on file Last Filed Vital Signs Vital SignReadingTime TakenCommentsBlood Pressure--Pulse--Temperature-- Respiratory Rate--Oxygen Saturation--Inhaled Oxygen Concentration--Llnzoh12.5 kg (140 lb)04/21/2020 12:00 PM ALPRwirtx515.5 cm (5' 2 )04/21/2020 12:00 PM ESTBody Mass Index25.6104/21/2020 12:00 PM EST Plan of Treatment [place] [address]
--- OUTSIDE RECORDS SUMMARY | 2025-04-09 09:45 | XMS_ITS | Clinical Summary ---
Author Organization [facility] Address [address] [place] [address] Care Team Providers Care Laborer Poultry Hatchery Name Role Phone Suhas Arizmendi DO Unavailable Suhas Arizmendi DO Primary Care Provider [phone] Allergies Active AllergyReactionsCriticalityNoted DateCommentsDivalproex SodiumIntolerance 03/29/2005Phenytoin Sodium KarswryuTnbk18/21/2005 Medications MedicationSigDispense QuantityRefillsLast FilledStart DateEnd DateStatus NORVASC 5 MG TAB Take one(1) tablet daily.Active DIOVAN HCT 160 MG-12.5 MG TAB twice a mwk311Active METOPROLOL SR 50 MG 24 HR TAB once a yiz671Active SYNTHROID 100 MCG TAB Take one(1) tablet daily.Active CALCIUM ANTACID 500 MG CHEWABLE TAB Calcium with D 600mg once a moe015Active VIT Y-W9-X51B79-HMYWT ACID-MAG OX 100 UNIT-2.05 MG TAB Vit e 400 IU every other qvk698Active ASPIRIN 81 MG TAB once a btz952Active Family History Medical HistoryRelationCommentsNoneMotherno family history of breast cancer RelationStatusCommentsMother Social History Tobacco UseTypesPacks/DayYears UsedDateSmoking Tobacco: Never Assessed CommentsUnknownSex and Gender InformationValueDate RecordedSex Assigned at Not on fileLegal MfgItudda96/02/2012 7:32 AM ESTGender IdentityNot on fileSexual OrientationNot on file Plan of Treatment Health MaintenanceDue DateLast DoneCommentsAnxiety Ktbgkwwnc32/04/1955Depression Orwhjtdwx09/04/1955DTaP,Tdap,Td Vaccine (1 - Tdap)08/11/1955Diabetes Screening 1981Pneumococcal Vaccine: 50+ (1 of 1 - PCV)1986Shingrix Vaccine (1 of 2)1986Bone Density Mqngptpgt31/04/2002RSV Vaccine (1 - 1-dose 75+ series)08/11/2011dvance Directive Pchcrslmso10/01/2025ovid-19 Vaccine (1 - 2024-26 season)2025Influenza Vaccine (#1)2025 Insurance Care Teams Team MemberRelationshipSpecialtyStart DateEnd Date Suhas Arizmendi DO [address] [place] [address] PCP - Generalmily Medicine07/23/23 Suhas Arizmendi DO [address] [place] [address] ReferringFarevere memorial hospital Medicine07/23/23
[2025-04-09 10:59] LABS: Alanine Aminotransferase 74 U/L (14-59); Albumin Globulin Ratio 1.0; Albumin Level 3.3 g/dL (3.4-5.0); Alkaline Phosphatase 221 U/L (46-116); Anion Gap 14.5; Aspartate Amino Transferase 21 U/L (15-37); Blood Urea Nitrogen 18.0 mg/dL (7.0-18.0); Calcium 9.3 mg/dL (8.5-10.1); Carbon Dioxide 26.0 mmol/L (21.0-32.0); Chloride 105 mmol/L (98-107); Estimated GFR (African America >60 (>=60 mL/min/1.73m^2); Estimated GFR (Non-African Ame >60 (>=60 mL/min/1.73m^2); Globulin 3.2 g/dL; Glucose 115 mg/dL (74-106); Potassium 3.5 mmol/L (3.5-5.1); Sodium 142 mmol/L (136-145); Total Protein 6.5 g/dL (6.4-8.2)
== END 2025-04-09 09:42 | disposition home or self-care (01) ==
LOC: LAB 09:42
PROVIDERS: PCP Family Medicine; Visit Provider Family Medicine
DX: R60.0 Localized edema (principal)
CPT/HCPCS: 36415; 80053; 80074; 85652; 86140

== ENCOUNTER 2025-04-10 07:17 | Emergency (ER) | payer MEDICARE, OTHER, SELFPAY ==
--- OUTSIDE RECORDS SUMMARY | 2025-04-10 07:31 | XMS_ITS | CCD ---
Author Organization [facility] CliniSyal Care Team Providers Care Central Supply Clerk Name Role Phone Suhas Garrett Unavailable Suhas [...] Provider Suhas Garrett DO Primary Care Provider [phone] Suhas Garrett Primary Care Unavailable Suhas Garrett [...] of OnsetReaction(s) Facility (20 sources)Alendronate; Translations: [Fosamax]Drug Zaadaiy48-95-8015YbipzodDayton Osteopathic Hospital Repository (20 sources)Amoxicillin; Translations: [amoxicillin]Drug Ftjwrmv66-99-3335edtyt [place] [facility] Other (20 sources)Phenytoin; Translations: [Dilantin CAPS]Drug Pgcjkld42-53-3083Tfrh [place] [facility] Other (20 sources)Valproate; Translations: [Depakote ER TB24]Drug AllergyUnknowQuincy Valley Medical Center [facility] Other (1 source)AlendronateDrug AllergyThe [facility] Repository (1 source)AmoxicillinDrug AllergyOhiohealth [facility]heastern [facility] Repository (1 source)PhenytoinDrug AllergyOhiohealth Southeastern [facility] Repository (1 source)ValproateDrug AllergyThe [facility] Repository (20 sources)Acetaminophen / HYDROcodoneDrug Allergyelevated liver enzymesProvidence St. Peter Hospital [facility] Other (6 sources)AlendronateDrug Ygvyypt46-44-9866ZluwyoyKettering Health (8 sources)HYDROcodone; Translations: [HYDROCODONE]Drug Xnhwyff76-26-0914CSCleveland [facility] Work Phone: (8 sources)Valproate; Translations: [VALPROIC ACID]Drug Qxvcqhw08-60-0694SolrgydCleveland Clinic [facility] Work Phone: (1 source)AcetaminophenDrug Yxrhsnw65-12-5021EocfdfajgMercy Health [facility] Repository (1 source)AlendronateDrug Dyivdiz85-96-9968TqwqtzqblMercy Health Clermont Hospital Repository (1 source)AmoxicillinDrug Sacfyhw08-12-7845ZqpftcpgoMercy Health Clerm[facility] Hospital Repository (1 source)HYDROcodoneDrug Lgxpdxe33-20-1083ZvjipiaipMercy Health Clermont Hospital Repository (1 source)PhenytoinDrug Gxeqrwt74-85-9871XdhfhphgzMercy Health Clermont Hospital Repository (1 source)ValproateDrug Sgehzho68-67-1675KsxukevtzMercy Health Clermont Hospital Repository (5 sources)Valproate; Translations: [DIVALPROEX]Drug Twfjjal05-96-6558MawmiUpper Valley Medical Center Work Phone: Medications Current Medications [...] mg oral tablet (20 sources)Nonsteroidal Anti-inflammatory DrugStart: 17-74-3601eely 1 tablet by mouth twice daily at mealtime as neededIbuprofen 600 MG 1 tablet with food or milk as needed Orally Twice a day as needed with food Jan, ActiveStart: 27-27-4342tbvs 1 tablet by mouth three times daily at mealtime as needed Ibuprofen 600 MG 1 tablet with food or milk as needed Orally TID PRN with food Jan, Not-Takinglevothyroxine sodium 0.1 mg oral tablet (20 sources)l-ThyroxineStart: 41-48-9159bvmy 1 tablet by mouth once daily levothyroxine [...] ActivepredniSONE 10 mg oral tablet (20 sources)Start: 14-77-5713rfhe 1 tablet by mouth once dailypredniSONE (Deltasone) 10 mg tablet Take 1 tablet (10 mg) by mouth once daily. 12/09/2024 ActiveStart: 98-02-9877xpge 2 tablets by mouth once dailypredniSONE 10 MG 2 tablets x 7 days, 1 tablet x 7 days, then 1/2 tablet or 5mg daily thereafter Orally as directed Jun, ActiveStart: 64-85-9050qxuo 1 tablet by mouth every twenty-four hourspredniSONE 20 MG 1 tablet Orally Once a day for 10 days Apr, ActiveStart: 59-75-1499tizm 1 tablet by mouth every other day predniSONE 2.5 MG 1 tablet Orally alternating every other day with 5mg Nov, ActiveStart: 86-19-5301kdso 1 tablet by mouth every twenty-four hours predniSONE 2.5 MG 1 tablet Orally Once a day Apr, ActiveStart: 52-72-5078qfjf 1 tablet by mouth every twenty-four hourspredniSONE 10 MG 1 tablet Orally Once a day for 90 days Apr, ActiveStart: 57-21-7811yvdt 1 tablet by mouth every twenty-four hourspredniSONE 20 MG 1 tablet Orally Once a day for 30 day(s) Apr, ActiveStart: 47-77-3458yjpybbJUIW 20 MG 1 tablet with food or milk Orally 1 tab twice a day x 5 days , 1 tab every day x 5days for 10 days Feb, ActiveStart: 13-01-5949aoxr 1 tablet by mouth at mealtime, then take 1 tablet by mouth twice daily, then take 1 tablet by mouth once dailypredniSONE 20 MG 1 tablet with food or milk Orally 1 tab twice a day x 5 days , 1 tab once a day X 5 days Jan, ActiveStart: 02-01-3858qzjv 1 tablet by mouth every other daypredniSONE 5 MG 1 tablet Orally alternating every other day with 2.5mg Apr, ActiveStart: 02-22-2020 End: 30-64-7706aqwpocBTDI (Deltasone) 5 mg tablet Take 1 tablet (5 mg) by mouth once daily. Alternating 2.5 tab 11/02/2021 01/14/2025 Discontinued (Dose adjustment)Start: 12-16-8222uost 1 tablet by mouth every twenty-four hours predniSONE 2.5 MG 1 tablet Orally Once a day Feb, ActiveStart: 14-94-9925gbwn 1.5 tablets by mouth every twenty-four hourspredniSONE 5 MG 1.5 tablets Orally Once a day Feb, ActivetraMADol hydrochloride 50 mg oral tablet (5 sources)Opioid AgonistStart: 99-76-3630gury 1 tablet by mouth every eight hourstraMADol HCl 50 MG 1 tablet as needed Orally tid Jun, ActiveStart: 33-91-2006usqt 1 tablet by mouth every twenty-four hourstraMADol HCl 50 MG 1 tablet as needed Orally Once a day Jun, ActiveTylenol Arthritis Pain 650 MG (20 sources)Tylenol Arthritis Pain 650 MG as directed Orally Not-TakingTylenol Arthritis Pain 650 MG as directed Orally Active Completed/Discontinued Medications MedicationDrug Class(es)DatesSig (Normalized)Sig (Original)amLODIPine 10 mg oral tablet (20 sources)Dihydropyridine Calcium Channel BlockerStart: 17-92-6950oxvm 1 tablet by mouth every twenty-four hoursNorvasc 5 MG 1 tablet Orally Once a day for 90 day(s) May, ActiveStart: 06-03-2017 End: 29-90-7143ddqx 1 tablet by mouth once dailyamLODIPine (Norvasc) 10 mg tablet Take 1 tablet (10 mg) by mouth once daily. 12/13/2021 12/07/2024 D iscontinued (Dose adjustment)calcium carbonate 1500 mg oral tablet (11 sources) End: 93-94-1257vlva 1 tablet by mouth once dailycalcium carbonate [...] 24-Dec-2022 DO ActiveFish Oils (4 sources) End: 60-97-0447qnlb 1 capsule by mouth once dailyomega-3 (Fish [...] Not-Takingmelatonin 5 mg oral tablet (20 sources)Start: 57-09-8530plhc 1 tablet by mouth every twenty-four hours Melatonin 5 MG 1 tablet in the evening Orally Once a day Sep, Not-Taking/PRNmethylPREDNISolone (20 sources)CorticosteroidStart: 86-20-3425FNGW-MEDROL 41 - 125 mg Jan, 125 mgMulti Vitamin Oral Tablet (7 sources)take 1 tablet by mouth once dailyMulti Vitamin Oral Tablet TAKE 1 TABLET DAILY. Quantity: 0 Refills: 0 Ordered: 13-Dec-2021 DO ActiveOmega 3 500 CAPS (4 sources)[place] 3 500 CAPS TAKE 1 CAPSULE Daily Quantity: 0 Refills: 0 Ordered: 13-Dec-2021 DO Activeoxycodone HCl/acetaminophen (OXYCODONE-ACETAMINOPHEN ORAL) (2 sources)Start: 02-23-2024 End: 76-20-3925naendzcxk HCl/acetaminophen (OXYCODONE-ACETAMINOPHEN ORAL) Take by mouth. 02/23/2024 12/07/2024 Discontinued (Therapy completed)Start: 17-19-1450ximkjbmlr HCl/acetaminophen (OXYCODONE-ACETAMINOPHEN ORAL) Take by mouth. 02/23/2024 ActivetraZODone hydrochloride 50 mg oral tablet (16 sources)Serotonin Reuptake InhibitorStart: 64-58-3127ukyr 1 tablet by mouth every twenty-four hourstraZODone HCl 50 MG 1 tablet at bedtime as needed Orally Once a day prn Jul, Not-Taking/PRN Problems Active Problems Problem ClassificationProblemDateDocumented DateEpisodic/ChronicAbdominal pain (20 sources)Generalized abdominal pain; Translations: [Generalized abdominal pain]Onset: 02-22-2022 Resolved: 40-15-5394VppsxmghKhknpcvaqpcjtp/social admission (20 sources)Advance directive discussed with patient; Translations: [Other specified counseling]EpisodicCoronary atherosclerosis and other heart disease (20 sources)Coronary arteriosclerosis; 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 [place] coronary artery without angina pectoris]Onset: 09-03-2023 ChronicDisorders of lipid metabolism (20 sources)Hyperlipidemia; Translations: [Hyperlipidemia, unspecified]Onset: 04-26-2021 Resolved: 53-43-2053XubdgdnEejjyxtkj hypertension (20 sources)Hypertensive disorder; Translations: [Essential (primary) hypertension]Onset: 09-10-2021 Resolved: 23-75-7312ToolljuQprop valve disorders (20 sources)Aortic valve stenosis; Translations: [Aortic valve disorders]Onset: 44-80-6647PgoebewZmqhvktmvpg deficiencies (1 source)Vitamin D deficiency, unspecified; Translations: [Vitamin D deficiency, unspecified]Onset: 27-97-8868QqgxbzwZzcliotokonj (1 source)Osteoporosis; Translations: [Age-related osteoporosis without current pathological fracture]ChronicOther aftercare (1 source)Other assisted (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; Translations: [OTH OPTICAL SCIENTIST CURRENT DRUG THERAPY]Onset: 20-46-6101VvxuubytDswcj bone disease and musculoskeletal deformities (20 sources)Pain of left shoulder blade; Translations: [Other specified disorders of bone, shoulder]EpisodicOther bone disease and musculoskeletal deformities (20 sources)Osteopenia; Translations: [Other specified disorders of bone density and structure, multiple sites]EpisodicOther circulatory disease (20 sources)Cardiovascular symptoms; Translations: [Other specified symptoms and signs involving the circulatory and respiratory systems]EpisodicOther connective tissue disease (20 sources)Polymyalgia rheumatica; Translations: [Polymyalgia rheumatica]Onset: 314713-00-6180OmtwlnaSnnpj connective tissue disease (20 sources)Polymyalgia rheumatica; Translations: [Polymyalgia rheumatica]Onset: 04-26-2021 Resolved: 67-78-6973JxoxinsLesek connective tissue disease (1 source)Other muscle spasm; Translations: [OTHER MUSCLE SPASM]Onset: 83-99-6741DuvvvlcrZigky liver diseases (20 sources)Disease of liver; Translations: [Liver disease, unspecified]Chronic Other lower respiratory disease (20 sources)Radiologic increased density of lung; Translations: [Other disorders of lung]EpisodicOther non-epithelial cancer of skin (20 sources)Basal cell carcinoma of skin; Translations: [Basal cell carcinoma of skin, unspecified]EpisodicOther non-traumatic joint disorders (6 sources)Pain in left shoulder; Translations: [PAIN IN LEFT SHOULDER]Onset: 02-20-2022 Resolved: 89-04-1631DdzsionyXfppj non-traumatic joint disorders (20 sources)Shoulder pain; Translations: [Pain in left shoulder]EpisodicOther nutritional; endocrine; and metabolic disorders (14 sources)Overweight in adulthood with body mass index of 25 or more but less than 30; Translations: [Overweight]Onset: 111074-40-3972UhyzhgflRwtca nutritional; endocrine; and metabolic disorders (1 source)Overweight; Translations: [Overweight]38-99-3424MwmvklfiSjrpm nutritional; endocrine; and metabolic disorders (2 sources)Body mass index (BMI) 27.0-27.9, adult; Translations: [Body mass index (BMI) 27.0-27.9, adult]Onset: 62-00-6780ZpnmuuiuWvhiq screening for suspected conditions (not mental disorders or infectious disease) (20 sources)Other specified abnormal findings of blood chemistry; Translations: [Elevated liver function tests]Onset: 02-26-2022 Resolved: 80-61-8155HoviungeMttuycpi codes; unclassified (20 sources)Insomnia; Translations: [Insomnia, unspecified]EpisodicResidual codes; unclassified (20 sources)Family history of malignant neoplasm of gastrointestinal tract; Translations: [Family history of malignant neoplasm of digestive organs]Episodic Residual codes; unclassified (20 sources)Difficulty sleeping ; Translations: [Sleep disorder, unspecified] EpisodicResidual codes; unclassified (3 sources)Insomnia, unspecifiedOnset: 10-01-2021 Resolved: 60-94-9487HadfdsefDvbghosl codes; unclassified (9 sources)Never smoked any substance; Translations: [Other specified health status]Onset: 565169-79-1803KsfwvnuoAgxngkxv codes; unclassified (2 sources)Other specified health status; Translations: [Other specified health status]Onset: 96-84-3137HbohrdhcRfcarfcgtnl; intervertebral disc disorders; other back problems (13 sources)Low back pain; Translations: [Lumbar back pain]EpisodicSprains and strains (20 sources)Strain of muscle and/or tendon of lower leg; Translations: [Strain of unspecified muscle and tendonat ankle and foot level, left foot, subsequent encounter]EpisodicThyroid disorders (20 sources)Hypothyroidism; Translations: [Hypothyroidism, unspecified]Onset: 04-26-2021 Resolved: 33-00-1981Vcfvgrk Past or Other Problems Problem ClassificationProblemDateDocumented DateEpisodic/ChronicConditions associated with dizziness or vertigo (2 sources)Dizziness and giddiness; Translations: [Dizziness and giddiness] Onset: 02-14-2022 Resolved: 99-31-9865NsbheyymWfqcw valve disorders (20 sources)Heart murmur; Translations: [Cardiac murmur, unspecified]Onset: 10-01-2021 Resolved: 12-17-7409IapgsqyjItmph acquired deformities (1 source)Spondylolisthesis, lumbar regionOnset: 02-14-2022 Resolved: 80-43-5050FbbyzqblQzlxy bone disease and musculoskeletal deformities (1 source)Other specified disorders of bone density and structure, unspecified siteOnset: 02-14-2022 Resolved: 76-63-9827XqjbjjazBqjoo bone disease and musculoskeletal deformities (1 source)Other specified disorders of bone, shoulderOnset: 02-22-2022 Resolved: 84-39-7496BrytzsisEynva bone disease and musculoskeletal deformities (1 source)Other specified disorders of bone density and structure, multiple sitesOnset: 02-22-2022 Resolved: 38-83-2029RnkvrgbsTkmnq circulatory disease (20 sources)Carotid bruit; Translations: [Other symptoms involving cardiovascular system]Onset: 06-04-2023 Resolved: 792420-08-7859DastxvuqHlrfn circulatory disease (1 source)Other specified symptoms and signs involving the circulatory and respiratory systems; Translations:[Other specified symptoms and signs involving the circulatory and respiratory systems]Onset: 73-65-0038GjdwpvllWrgfo liver diseases (1 source)Abnormal levels of other serum enzymes; Translations: [Abnormal levels of other serum enzymes]Onset: 04-60-3109QpgjeigqWaboa nutritional; endocrine; and metabolic disorders (2 sources)Body mass index (BMI) 26.0-26.9, adult; Translations: [Body mass index (BMI) 26.0-26.9, adult]Onset: 44-14-7874CwebfhefUrsme skin disorders (1 source)Localized swelling, mass and lump, headOnset: 04-26-2021 Resolved: 83-94-3471WprzswqaDjtwafuk codes; unclassified (1 source)Sleep disorder, unspecifiedOnset: 08-02-2021 Resolved: 72-31-2405GwnevvhbIcyrtwyz codes; unclassified (1 source)Asymptomatic menopausal stateOnset: 02-14-2022 Resolved: 37-29-7204TzwvmjjwJxiusurpraam (7 sources)Never smoked tobacco; Translations: [Never smoker]Unclassified (1 source)Cough R05.9Onset: 01-11-2022 Resolved: 38-13-7708Dvgjdhpzsbzr (3 sources)Lumbar back pain M54.50Onset: 02-14-2022 Resolved: 64-81-6376Xbnfgywiczjo (1 source)History of COVID-19 Z86.16Onset: 02-14-2022 Resolved: 20-16-6788Wfzdwymfgztv (10 sources)Lumbar back pain; Translations: [Lumbar back pain]Unclassified (1 source)Vaccine counseling Z71.85Unclassified (6 sources)Onset: 06-19-2023 Resolved: Viral infection (20 sources)Disease caused by 2019-nCoV; Translations: [COVID-19]Onset: 01-11-2022 Resolved: 01-11-2022 Results Test NameValueInterpretationReference RangeFacilityTRANSTHORACIC ECHO (TTE) COMPLETEon 76-49-3151OUUDPZPGIYJZH ECHO (TTE) COMPLETENortCritical access hospital [address], [address], [place] [address] TRANSTHORACIC ECHOCARDIOGRAM REPORT Patient Name: LAVONNE VILLATORO Reading Physician: [id number] Shy Wolf MD, [facility] Study Date: 12/21/2024 Ordering Provider: [id number] SHY WOLF MRN/PID: [id number] Fellow: Nurse: Date of /Age: 3 1935 / years Neurology Epilepsy Physician: Sheridan Lemus RDCS, T Gender Assigned at F Additional Staff: : Height: 157.48 cm Admit Date: Weight: 65.77 kg Admission Status: Outpatient BSA / BMI: 1.67 m2 / 26.52 Department Location: [facility] kg/m2 [place] Blood Pressure: 146 /68 mmHg Study Type: TRANSTHORACIC ECHO (TTE) COMPLETE Diagnosis/ICD: Nonrheumatic aortic (valve) stenosis-I35.0 Indication: HTN, Hyperlipidemia, 2/6 Systolic Murmur, Hypothyroid CPT Codes: Echo Complete w Full Doppler-29453 Study Detail: The following Echo studies were [...] AoV Area,Vmax: 0.85 cm (more content not included)...[facility] Transthoracicon 60-94-7302Tubyai Valve Area by Continuity of Peak Velocity0.85 ze1EdloatntjsAshtabula County Medical Center Work Phone: [phone] Valve Area by Continuity of VTI0.9 cm2 [facility] Work Phone: [phone] mn jvlr69xrEpMyeqjhwglzPremier Health [facility] Work Phone: [phone] pk mxjo65kvBgVowdjryifwPremier Health [facility] Work Phone: [phone] pk vel3.27 m/[facility] Work Phone: [phone] vol index A/L43.4 ml/o3XxqfqfsyftPremier Health Miami [facility] Hospital Work Phone: [phone] A4C EF76.9UnPremier Health Miami Valley Hospital Work Phone: [phone] Biplane EF71 %[facility] Work Phone: [phone] EF68 %[facility] Work Phone: [phone] cmUnPremier Health [facility] Hospital Work Phone: [phone] diam1.89 cmUnPremier Health [facility] Hospital Work Phone: [phone] avg E/e' ratio15.93UnPremier Health [facility] Work Phone: [phone] E/A apzgk4OpdlqrcebkPremier Health [facility] Work Phone: [phone] free wall pk S'11.98 cm/[facility] Work Phone: [phone]ier Health [facility] Hospital Work Phone: [phone] annular plane systolic excursion2.4 cm [facility] Work Phone: [address], [address] [place] [address] TRANSTHORACIC ECHOCARDIOGRAM REPORT Patient Name: LAVONNE Bahena Physician: [id number] Shy Wolf MD, [facility] Study Date: 12/21/2024 Ordering Provider: [id number] SHY WOLF MRN/PID: [id number] Fellow: Nurse: Date of /Age: 3 1935 / 89 years Neurology Epilepsy Physician: Sheridan Lemus RDCS, RVT Gender Assigned at F Additional Staff: : Height: 157.48 cm Admit Date: Weight: 65.77 kg Admission Status: Outpatient BSA / BMI: 1.67 m2 / 26.52 Department Location: [facility] kg/m2 [place] Blood Pressure: 146 /68 mmHg Study Type: TRANSTHORACIC ECHO (TTE) COMPLETE Diagnosis/ICD: Nonrheumatic aortic (valve) stenosis-I35.0 Indication: HTN, Hyperlipidemia, 2/6 Systolic Murmur, Hypothyroid CPT Codes: Echo Complete w Full Doppler-44457 Study Detail: The following Echo studies were [...] content not included)...Shy Kenney MD - 12/21/2024 [facility] [address], [address], [place] [address] TRANSTHORACIC ECHOCARDIOGRAM REPORT Patient Name: LAVONNE VILLATORO Reading Physician: [id number] Shy Wolf MD, [facility] Study Date: 12/21/2024 Ordering Provider: [id number] SHY WOLF MRN/PID: [id number] Fellow: Nurse: Date of /Age: 3 1935 / 89 years Neurology Epilepsy Physician: Sheridan Lemus RDCS, RVT Gender Assigned at F Additional Staff: : Height: 157.48 cm Admit Date: Weight: 65.77 kg Admission Status: Outpatient BSA / BMI: 1.67 m2 / 26.52 Department Location: [facility] kg/m2 [place] Blood Pressure: 146 /68 mmHg Study Type: TRANSTHORACIC ECHO (TTE) COMPLETE Diagnosis/ICD: Nonrheumatic aortic (valve) stenosis-I35.0 Indication: HTN, Hyperlipidemia, 2/6 Systolic Murmur, Hypothyroid CPT Codes: Echo Complete w Full Doppler-98539 Study Detail: The following Echo studies were [...] cm (18-25cm) LVOT VTI: (more content not included)...[facility] Work Phone: UnPremier Health [facility] Work Phone: Complete Blood Count Auto Diffon 18-14-4063Zbwruwogk (Bld) [#/Vol]0.1 10*3/uLNormal0.0-0.2The Critical Access Hospital Physician GroupComment on above:Performed By: #### [id number], CMP, TSH3, LIPID, CBC, T4F, ESR #### [facility] [address] [place] [address] USABasophils/100 WBC (Bld)1.1 %Normal.The Critical Access Hospital Physician GroupComment on above:Performed By: #### [id number], CMP, TSH3, LIPID, CBC, T4F, ESR #### [place] [address] USAEosinophils (Bld) [#/Vol]0.1 10*3/uLNormal0.0-0.45The Critical Access Hospital Physician GroupComment on above:Performed By: #### [id number], CMP, TSH3, LIPID, CBC, T4F, ESR #### [place] [address] USAEosinophils/100 WBC (Bld)2.2 %Normal.The Critical Access Hospital Physician GroupComment on above:Performed By: #### [id number], CMP, TSH3, LIPID, CBC, T4F, ESR #### [place] [address] USAErythrocyte distribution width (RBC) [Ratio]13.5 %Normal 11.9-15.3The Critical Access Hospital Physician GroupComment on above:Performed By: #### [id number], CMP, TSH3, LIPID, CBC, T4F, ESR #### [place] [address] USAHematocrit (Bld) [Volume fraction]37.9 %Oxtowa29.0-46.4The Critical Access Hospital Physician GroupComment on above:Performed By: #### [id number], CMP, TSH3, LIPID, CBC, T4F, ESR #### [place] [address] USAHemoglobin (Bld) [Mass/Vol]12.9 g/lIPakigp46.8-15.4The Critical Access Hospital Physician GroupComment on above:Performed By: #### [id number], CMP, TSH3, LIPID, CBC, T4F, ESR #### [place] [address] USALymphocytes (Bld) [#/Vol]2.2 10*3/uLNormal1.00-4.8The Critical Access Hospital Physician GroupComment on above:Performed By: #### [id number], CMP, TSH3, LIPID, CBC, T4F, ESR #### [place] [address] USALymphocytes/100 WBC (Bld)34.3 %Normal.The Critical Access Hospital Physician GroupComment on above:Performed By: #### [id number], CMP, TSH3, LIPID, CBC, T4F, ESR #### [address]H (RBC) [Entitic mass]33.5 vpYzsykp49.7-34.3The Critical Access Hospital Physician GroupComment on above:Performed By: #### [id number], CMP, TSH3, LIPID, CBC, T4F, ESR #### [address] (RBC) [Entitic vol]98.4 kSBvnebp26-918Hhh Critical Access Hospital Physician GroupComment on above:Performed By: #### [id number], CMP, TSH3, LIPID, CBC, T4F, ESR #### [place] [address] USAMean Corpuscular HGB Conc34.1 g/fWJfyuqm52.0-35.0The Critical Access Hospital Physician GroupComment on above:Performed By: #### [id number], CMP, TSH3, LIPID, CBC, T4F, ESR #### [place] [address] USAMonocytes (Bld) [#/Vol]0.6 10*3/uLNormal0.0-0.8The Critical Access Hospital Physician GroupComment on above:Performed By: #### [id number], CMP, TSH3, LIPID, CBC, T4F, ESR #### [place] [address] USAMonocytes/100 WBC (Bld)9.8 %Normal.The Critical Access Hospital Physician GroupComment on above:Performed By: #### [id number], CMP, TSH3, LIPID, CBC, T4F, ESR #### [facility] [address] [place] [address] USANeutrophils (Bld) [#/Vol]3.4 10*3/uLNormal1.8-7.7The Critical Access Hospital Physician GroupComment on above:Performed By: #### [id number], CMP, TSH3, LIPID, CBC, T4F, ESR #### [place] [address] USANeutrophils/100 WBC (Bld)52.6 %Normal.The Critical Access Hospital Physician GroupComment on above:Performed By: #### [id number], CMP, TSH3, LIPID, CBC, T4F, ESR #### [place] [address] USANRBC%0.3 /100{WBC}Normal0-0.5The [facility] Physician Group Comment on above:Performed By: #### [id number], CMP, TSH3, LIPID, CBC, T4F, ESR #### [place] [address] USAPlatelet mean volume (Bld) [Entitic vol]9.3 fLNormal 6.3-10.7The Critical Access Hospital Physician GroupComment on above:Performed By: #### [id number], CMP, TSH3, LIPID, CBC, T4F, ESR #### [place] [address] USAPlatelets (Bld) [#/Vol]208 10*3/pTYbxknf773-816Bau Critical Access Hospital Physician GroupComment on above:Performed By: #### [id number], CMP, TSH3, LIPID, CBC, T4F, ESR #### [place] [address] USARBC (Bld) [#/Vol]3.85 10*6/uLNormal3.60-5.00The Critical Access Hospital Physician GroupComment on above:Performed By: #### [id number], CMP, TSH3, LIPID, CBC, T4F, ESR #### [place] [id number] USAWBC (Bld) [#/Vol]6.6 10*3/uLNormal3.8-11.6The Critical Access Hospital Physician GroupComment on above:Performed By: #### [id number], CMP, TSH3, LIPID, CBC, T4F, ESR #### [place] [address] USAComprehensive Metabolic Panelon 37-84-1125Kltzlse [Mass/Vol]3.7 g/dLNormal3.5-5.7The Critical Access Hospital Physician GroupComment on above: Performed By: #### [id number], CMP, TSH3, LIPID, CBC, T4F, ESR #### [place] [address] USAAlbumin/Globulin [Mass ratio]1.9 {ratio}NormalThe Critical Access Hospital Physician GroupComment on above:Performed By: #### [id number], CMP, TSH3, LIPID, CBC, T4F, ESR #### [place] [address] USAALP [Catalytic activity/Vol]62 U/OUpwjrt02-142Fzi [facility] Hospital Physician GroupComment on above:Performed By: #### [id number], CMP, TSH3, LIPID, CBC, T4F, ESR #### [place] [address] USAALT [Catalytic activity/Vol]21 U/LNormal7-52The Critical Access Hospital Physician GroupComment on above:Performed By: #### [id number], CMP, TSH3, LIPID, CBC, T4F, ESR #### [place] [address] USAAnion gap [Moles/Vol]8.2 mmol/LNormal6.0-15.0The [facility] Access Hospital Physician GroupComment on above:Performed By: #### [id number], CMP, TSH3, LIPID, CBC, T4F, ESR #### [place] [address] USAAST [Catalytic activity/Vol]19 U/YCwlnro09-76Rsd [facility] Hospital Physician GroupComment on above:Performed By: #### [id number], CMP, TSH3, LIPID, CBC, T4F, ESR #### [place] [address] USABilirubin [Mass/Vol]0.7 mg/dLNormal0.3-1.0The [facility] Access Hospital Physician GroupComment on above:Performed By: #### [id number], CMP, TSH3, LIPID, CBC, T4F, ESR #### [place] [address] USACalcium [Mass/Vol]9.7 mg/dLNormal8.6-10.3The [facility] Access Hospital Physician GroupComment on above:Performed By: #### [id number], CMP, TSH3, LIPID, CBC, T4F, ESR #### [place] [address] USAChloride [Moles/Vol]107 mmol/WMspopg39-003Hjp [facility] Access Hospital Physician GroupComment on above:Performed By: #### [id number], CMP, TSH3, LIPID, CBC, T4F, ESR #### [place] [address] USACO2 [Moles/Vol]31.5 mmol/LHigh21.0-31.0The [facility] Access Hospital Physician GroupComment on above:Performed By: #### [id number], CMP, TSH3, LIPID, CBC, T4F, ESR #### [place] [address] USACreatinine [Mass/Vol]0.67 mg/dLNormal0.60-1.20The [facility] Access Hospital Physician GroupComment on above:Performed By: #### [id number], CMP, TSH3, LIPID, CBC, T4F, ESR #### [place] [address] USAGFR/1.73 sq M.predicted MDRD (S/P/Bld) [Vol rate/Area] mL/min/{1.73_m2}NormalThe Critical Access Hospital Physician GroupComment on above:Performed By: #### [id number], CMP, TSH3, LIPID, CBC, T4F, ESR #### [place] [address] USAGlobulin (S) [Mass/Vol]1.9 g/dLNormalThe Critical Access Hospital Physician GroupComment on above:Performed By: #### [id number], CMP, TSH3, LIPID, CBC, T4F, ESR #### [place] [address] USAGlucose [Mass/Vol]89 mg/bSPqgiuy81-910Ohv Critical Access Hospital Physician GroupComment on above:Result Comment: Random Glucose Reference Range is dependent on time and content of last meal. Glucose of more than 200 mg/dL in a nonstressed, ambulatory subject supports the diagnosis of Diabetes Mellitus. ADA recommended reference rangePerformed By: #### [id number], CMP, TSH3, LIPID, CBC, T4F, ESR #### [place] [address] USAPotassium [Moles/Vol]3.7 mmol/LNormal3.5-5.1The Critical Access Hospital Physician GroupComment on above:Performed By: #### [id number], CMP, TSH3, LIPID, CBC, T4F, ESR #### [place] [address] USAProtein [Mass/Vol]5.6 g/dLLow6.4-8.9The Critical Access Hospital Physician GroupComment on above:Performed By: #### [id number], CMP, TSH3, LIPID, CBC, T4F, ESR #### [place] [address] USASodium [Moles/Vol]143 mmol/JCcjfen268-879Pie Critical Access Hospital Physician GroupComment on above:Performed By: #### [id number], CMP, TSH3, LIPID, CBC, T4F, ESR #### [place] [address] USAUrea nitrogen [Mass/Vol]19 mg/dLNormal7-25The Critical Access Hospital Physician GroupComment on above:Performed By: #### [id number], CMP, TSH3, LIPID, CBC, T4F, ESR #### [facility] [address] [place] [id number] USAErythrocyte Sedimentation Rateon 96-18-1108KAU (Bld) [Velocity]9 mm/hNormal0-29The Critical Access Hospital Physician GroupComment on above:Result Comment: PERFORMED BY: [place] [address] PATHOLOGIST [employer]UME [employer]APER JASIEL HURTADO M.D.Performed By: #### [id number], CMP, TSH3, LIPID, CBC, T4F, ESR #### [place] [address] USAFree T4 (Free Thyroxine)on 96-74-5648Muqr T4 [Mass/Vol] 0.74 ng/dLNormal0.61-1.12The Critical Access Hospital Physician GroupComment on above:Performed By: #### LIPID, TSH3, CMP, CBC #### [place] [address] USALipid Panelon 56-36-8041Ppchmitozcd [Mass/Vol]228 mg/dL Jcng451-381Cmc Critical Access Hospital Physician GroupComment on above:Result Comment: Chol less than 200 mg/dl low risk Chol 201-239 mg/dl borderline risk Chol 240 mg/dl and greater high riskPerformed By: #### [id number], CMP, TSH3, LIPID, CBC, T4F, ESR #### [place] [id number] USACholesterol in HDL [Mass/Vol]96 mg/rCXldl02-22Wcd Critical Access Hospital Physician GroupComment on above:Result Comment: HDL CHOL ATP-III CLASSIFICATION Cardiovascular Risk HDL > or equal to 60 mg/dL LOW HDL < 40 mg/dL HIGHPerformed By: #### [id number], CMP, TSH3, LIPID, CBC, T4F, ESR #### [place] [id number] USACholesterol.total/Cholesterol in HDL [Mass ratio]2.4 {ratio}Normal<5.0The Critical Access Hospital Physician GroupComment on above:Performed By: #### [id number], CMP, TSH3, LIPID, CBC, T4F, ESR #### [facility] [address] [place] [address] USALDL Cholesterol,Bewzahhlwz266 mg/dLHigh0-100The Critical Access Hospital Physician GroupComment on above:Result Comment: LDL ATP III CLASSIFICATION LDL less than 100 mg/dL Optimal LDL 100-129 mg/dL Near or above optimal LDL 130-159 mg/dL Borderline high LDL 160-189 mg/dL High LDL greater than 189 mg/dL Very highPerformed By: #### [id number], CMP, TSH3, LIPID, CBC, T4F, ESR #### [facility] [address] [place] [address] USATriglyceride w/Nakalv55 mg/dLNormal0-149The Critical Access Hospital Physician GroupComment on above:Result Comment: TRIG ATP III CLASSIFICATION TRIG less than 150 mg/dL Normal TRIG 150-199 mg/dL Borderline high TRIG 200-500 mg/dL High TRIG greater than 500 mg/dL Very high Standard traceable to the Center for Disease Conrtrol and Prevention (CDC) test method.Performed By: #### [id number], CMP, TSH3, LIPID, CBC, T4F, ESR #### [facility] [address] [place] [address] USAVLDL DBFNTGHLSTA43 mg/dLNormalThe Critical Access Hospital Physician GroupComment on above:Performed By: #### [id number], CMP, TSH3, LIPID, CBC, T4F, ESR #### [facility] [address] [place] [address] USAThyroid Stimulating Hormoneon 49-45-8937AKU Qn6.38 m[IU]/L High0.45-5.33The Critical Access Hospital Physician GroupComment on above:Performed By: #### LIPID, TSH3, CMP, CBC #### [facility] [address] [place] [address] USAVitamin D 25 Hydroxy Totalon 95-47-9121Memteew D 25 Hydroxy Total28.4 ng/gXZoi46-645Act Critical Access Hospital Physician GroupComment on above: Result Comment: VITAMIN D STATUS 25(OH)VITAMIN D RANGE (ng/mL) Deficient <20 Insufficient 20 to <30 Sufficient 30 to 100 Reference: Yolanda ARIAS,Nathan NC, Keshawn FRANCO, et al. Evaluation,treatment, and prevention of vitamin D deficiency; an Endocrine Society clinical practice guideline. JCEM. 2010; 96(7):1911-30. PERFORMED BY: [place] [address] PATHOLOGIST COSTUME DRAPER JASIEL HURTADO M.D.Performed By: #### LIPID, TSH3, CMP, CBC #### [place] [address] USAXR scapula LT*on 92-60-9504WI scapula LT*[facility] [address] [place] [address] [place] [address] XRay Report Signed Patient: Lavonne Villatoro MR#: [id number] : 1935 Acct:[id number] Age/Sex: 88 / F ADM Date: 05/25/24 Loc: Room: Type: [facility] Attending Dr: Suhas Garrett DO Copies to: Suhas Garrett DO Ordering Provider: Suhas Garrett DO Date of Service: 05/25/24 XR/XR shoulder LT min 2V*: M25.519 - Pain in unspecified shoulder ([id number]) XR/XR scapula LT*: M25.519 - Pain in [...] Casandra Gómez M.D.05/25/2024 4:45 PM Dictation Location: [place] [address] Transcribed By: [facility] 05/25/241644 Dictated By: Casandra Gómez MD 05/25/241641 Signed By: 05/25/24 1645[facility] Physician GroupTRANSTHORACIC ECHO (TTE) COMPLETEon 19-94-2042TAWOWEQEGIUTH ECHO (TTE) COMPLETENo[address], [address] [place] [address] TRANSTHORACIC ECHOCARDIOGRAM REPORT Patient Name: LAVONNE VILLATORO Reading Physician: [id number] Shy Wolf MD, [facility] Study Date: 02/11/2024 Ordering Provider: [id number] SHY WOLF MRN/PID: [id number] Fellow: Nurse: Date of /Age: 3 1935 / 88 years Neurology Epilepsy Physician: LILIA Gender: F Additional Staff: Height: 157.48 cm Admit Date: Weight: 69.40 kg Admission Status: BSA / BMI: 1.71 m2 / 27.98 kg/m2 Department Location: [facility] Blood Pressure: 116 /76 mmHg Study Type: TRANSTHORACIC ECHO (TTE) COMPLETE Diagnosis/ICD: Nonrheumatic aortic (valve) stenosis-I35.0 Indication: HTN, Hyperlipidemia, 3/6 Systolic Murmur, Hypothryoid, Overweight CPT Codes: Echo Complete w Full Doppler-11522 Study Detail: The following Echo studies were [...] mmHg PIEDV: 2.23 m/s PADP: 22.9 mmHg [id number] Shy Wolf MD, FACC Electronical (more content not included)...[facility] BIon 65-24-6365NA carotid doppler [facility] [place] [address] [place] [address] Ultrasound Report Signed Patient: Lavonne Villatoro MR#: [id number] : 1935 Acct:[id number] Age/Sex: 88 / F ADM Date: 10/14/23 Loc: Room: Type: [facility] Attending Dr: Suhas Garrett DO [...] Hola Wynn M.D.10/15/2023 11:47 AM Dictation Location: [place] [address] Tech: Jackie Aguillon Transcribed By: KIRILL 10/15/23 1147 Dictated By: Hola Wynn MD 10/15/23 1145 Signed By: 10/15/23 1147[facility] Physician [facility] HospitalComplete Blood Count Auto Diffon 96-70-6111Htezlfpai (Bld) [#/Vol]0.0 10*3/uLNormal0.0-0.2The Critical Access Hospital Physician GroupComment on above:Result Comment: PERFORMED BY: [place] [address] PATHOLOGIST COSTUME DRAPER JODY SOLANO M.D.Performed By: #### LIPID, TSH3, CMP, CBC #### [place] [address] USABasophils/100 WBC (Bld)0.7 %Normal.The Critical Access Hospital Physician GroupComment on above:Performed By: #### LIPID, TSH3, CMP, CBC #### [place] [address] USAEosinophils (Bld) [#/Vol]0.1 10*3/uLNormal0.0-0.45The Critical Access Hospital Physician GroupComment on above:Performed By: #### LIPID, TSH3, CMP, CBC #### [place] [address] USAEosinophils/100 WBC (Bld)1.6 %Normal.The Critical Access Hospital Physician GroupComment on above:Performed By: #### LIPID, TSH3, CMP, CBC #### [place] [address] USAErythrocyte distribution width (RBC) [Ratio]14.8 %Normal 11.9-15.3The Critical Access Hospital Physician GroupComment on above:Performed By: #### LIPID, TSH3, CMP, CBC #### [place] [address] USAHematocrit (Bld) [Volume fraction]39.9 %Gtxdwx82.0-46.4The Critical Access Hospital Physician GroupComment on above:Performed By: #### LIPID, TSH3, CMP, CBC #### [place] [address] USAHemoglobin (Bld) [Mass/Vol]13.2 g/sVCbnwdq75.8-15.4The Critical Access Hospital Physician GroupComment on above:Performed By: #### LIPID, TSH3, CMP, CBC #### [place] [address] USALymphocytes (Bld) [#/Vol]2.6 10*3/uLNormal1.00-4.8The Critical Access Hospital Physician GroupComment on above:Performed By: #### LIPID, TSH3, CMP, CBC #### [place] [address] USALymphocytes/100 WBC (Bld)43.5 %Normal.The Critical Access Hospital Physician GroupComment on above:Performed By: #### LIPID, TSH3, CMP, CBC #### [place] [address] USAMCH (RBC) [Entitic mass]33.2 xzLpanen34.7-34.3The Critical Access Hospital Physician GroupComment on above:Performed By: #### LIPID, TSH3, CMP, CBC #### [place] [address] USAV (RBC) [Entitic vol]100.5 oPXqew27-954Lzr Critical Access Hospital Physician GroupComment on above:Performed By: #### LIPID, TSH3, CMP, CBC #### [place] [address] USAMean Corpuscular HGB Conc33.0 g/ySPowcje48.0-35.0The Critical Access Hospital Physician GroupComment on above:Performed By: #### LIPID, TSH3, CMP, CBC #### [place] [address] USAMonocytes (Bld) [#/Vol]0.6 10*3/uLNormal0.0-0.8The Critical Access Hospital Physician GroupComment on above:Performed By: #### LIPID, TSH3, CMP, CBC #### [place] [address] USAMonocytes/100 WBC (Bld)9.7 %Normal.The Critical Access Hospital Physician GroupComment on above:Performed By: #### LIPID, TSH3, CMP, CBC #### [place] [address] USANeutrophils (Bld) [#/Vol]2.7 10*3/uLNormal1.8-7.7The Critical Access Hospital Physician GroupComment on above:Performed By: #### LIPID, TSH3, CMP, CBC #### [place] [address] USANeutrophils/100 WBC (Bld)44.5 %Normal.The Critical Access Hospital Physician GroupComment on above:Performed By: #### LIPID, TSH3, CMP, CBC #### [place] [address] USANRBC%0.2 /100{WBC}Normal0-0.5The [facility] Hospital Physician Group Comment on above:Performed By: #### LIPID, TSH3, CMP, CBC #### [place] [address] USAPlatelet mean volume (Bld) [Entitic vol]9.2 fLNormal 6.3-10.7The Critical Access Hospital Physician GroupComment on above:Performed By: #### LIPID, TSH3, CMP, CBC #### [place] [address] USAPlatelets (Bld) [#/Vol]229 10*3/xDAmqmwz727-284Sge Critical Access Hospital Physician GroupComment on above:Performed By: #### LIPID, TSH3, CMP, CBC #### [place] [address] USARBC (Bld) [#/Vol]3.98 10*6/uLNormal3.60-5.00The Critical Access Hospital Physician GroupComment on above:Performed By: #### LIPID, TSH3, CMP, CBC #### [facility] [address] [place] [address] USAWBC (Bld) [#/Vol]6.0 10*3/uLNormal3.8-11.6The Critical Access Hospital Physician GroupComment on above:Performed By: #### LIPID, TSH3, CMP, CBC #### [place] [address] USAComprehensive Metabolic Panelon 71-88-7431Gxecnaw [Mass/Vol]3.8 g/dLNormal3.5-5.7The Critical Access Hospital Physician GroupComment on above: Performed By: #### LIPID, TSH3, CMP, CBC #### [place] [address] USAAlbumin/Globulin [Mass ratio]1.7 {ratio}NormalThe Critical Access Hospital Physician GroupComment on above:Performed By: #### LIPID, TSH3, CMP, CBC #### [place] [address] USAALP [Catalytic activity/Vol]72 U/SGcftps43-517Sxe Critical Access Hospital Physician GroupComment on above:Performed By: #### LIPID, TSH3, CMP, CBC #### [place] [address] USAALT [Catalytic activity/Vol]43 U/LNormal7-52The Critical Access Hospital Physician GroupComment on above:Performed By: #### LIPID, TSH3, CMP, CBC #### [place] [address] USAAnion gap [Moles/Vol]8.9 mmol/LNormal6.0-15.0The Critical Access Hospital Physician GroupComment on above:Performed By: #### LIPID, TSH3, CMP, CBC #### [place] [address] USAAST [Catalytic activity/Vol]23 U/FLxbelq42-23Cdh Critical Access Hospital Physician GroupComment on above:Performed By: #### LIPID, TSH3, CMP, CBC #### [place] [address] USABilirubin [Mass/Vol]1.2 mg/dLHigh0.3-1.0The Critical Access Hospital Physician GroupComment on above:Performed By: #### LIPID, TSH3, CMP, CBC #### [place] [address] USACalcium [Mass/Vol]9.5 mg/dLNormal8.6-10.3The Critical Access Hospital Physician GroupComment on above:Performed By: #### LIPID, TSH3, CMP, CBC #### [facility] [address] [place] [address] USAChloride [Moles/Vol]107 mmol/WHuuvgl97-416Hyb Critical Access Hospital Physician GroupComment on above:Performed By: #### LIPID, TSH3, CMP, CBC #### [place] [address] USACO2 [Moles/Vol]30.0 mmol/DPkemrt52.0-31.0The Critical Access Hospital Physician GroupComment on above:Performed By: #### LIPID, TSH3, CMP, CBC #### [place] [address] USACreatinine [Mass/Vol]0.76 mg/dLNormal0.60-1.20The Critical Access Hospital Physician GroupComment on above:Performed By: #### LIPID, TSH3, CMP, CBC #### [place] [address] USAGFR/1.73 sq M.predicted MDRD (S/P/Bld) [Vol rate/Area] mL/min/{1.73_m2}NormalThe Critical Access Hospital Physician GroupComment on above:Performed By: #### LIPID, TSH3, CMP, CBC #### [place] [address] USAGlobulin (S) [Mass/Vol]2.2 g/dLNormalThe Critical Access Hospital Physician GroupComment on above:Performed By: #### LIPID, TSH3, CMP, CBC #### [place] [address] USAGlucose [Mass/Vol]79 mg/wLKouvrz64-002Ibb Critical Access Hospital Physician GroupComment on above:Result Comment: Random Glucose Reference Range is dependent on time and content of last meal. Glucose of more than 200 mg/dL in a nonstressed, ambulatory subject supports the diagnosis of Diabetes Mellitus. ADA recommended reference rangePerformed By: #### LIPID, TSH3, CMP, CBC #### [facility] [address] [place] [address] USAPotassium [Moles/Vol]3.9 mmol/LNormal3.5-5.1The Critical Access Hospital Physician GroupComment on above:Performed By: #### LIPID, TSH3, CMP, CBC #### [facility] [address] [place] [address] USAProtein [Mass/Vol]6.0 g/dLLow6.4-8.9The Critical Access Hospital Physician GroupComment on above:Performed By: #### LIPID, TSH3, CMP, CBC #### [facility] [address] [place] [address] USASodium [Moles/Vol]142 mmol/FTbwfvc358-655Drw Critical Access Hospital Physician GroupComment on above:Performed By: #### LIPID, TSH3, CMP, CBC #### [facility] [address] [place] [address] USAUrea nitrogen [Mass/Vol]22 mg/dLNormal7-25The Critical Access Hospital Physician GroupComment on above:Performed By: #### LIPID, TSH3, CMP, CBC #### [place] [address] USALipid Panelon 73-50-8976Bjjjxvtjvzt [Mass/Vol]243 mg/dL Kzzt913-310Ghm Critical Access Hospital Physician GroupComment on above:Result Comment: Chol less than 200 mg/dl low risk Chol 201-239 mg/dl borderline risk Chol 240 mg/dl and greater high riskPerformed By: #### LIPID, TSH3, CMP, CBC #### [place] [address] USACholesterol in HDL [Mass/Vol]98 mg/jPOdqw71-32Trq Critical Access Hospital Physician GroupComment on above:Result Comment: HDL CHOL ATP-III CLASSIFICATION Cardiovascular Risk HDL > or equal to 60 mg/dL LOW HDL < 40 mg/dL HIGHPerformed By: #### LIPID, TSH3, CMP, CBC #### [facility] [address] [place] [id number] USACholesterol.total/Cholesterol in HDL [Mass ratio]2.5 {ratio}Normal<5.0The Critical Access Hospital Physician GroupComment on above:Performed By: #### LIPID, TSH3, CMP, CBC #### [facility] [address] [place] [address] USALDL Cholesterol,Vfqanujuxn884 mg/dLHigh0-100The Critical Access Hospital Physician GroupComment on above:Result Comment: LDL ATP III CLASSIFICATION LDL less than 100 mg/dL Optimal LDL 100-129 mg/dL Near or above optimal LDL 130-159 mg/dL Borderline high LDL 160-189 mg/dL High LDL greater than 189 mg/dL Very highPerformed By: #### LIPID, TSH3, CMP, CBC #### [place] [address] USATriglyceride w/Cvclaz571 mg/dLNormal0-149The Critical Access Hospital Physician GroupComment on above:Result Comment: TRIG ATP III CLASSIFICATION TRIG less than 150 mg/dL Normal TRIG 150-199 mg/dL Borderline high TRIG 200-500 mg/dL High TRIG greater than 500 mg/dL Very high Standard traceable to the Center for Disease Conrtrol and Prevention (CDC) test method.Performed By: #### LIPID, TSH3, CMP, CBC #### [place] [address] USAVLDL DJBTAPSLXTC15 mg/dLNormalThe Critical Access Hospital Physician GroupComment on above:Performed By: #### LIPID, TSH3, CMP, CBC #### [place] [id number] USAThyroid Stimulating Hormoneon 35-78-7343MSD Qn4.01 m[IU]/L Normal0.45-5.33The Critical Access Hospital Physician GroupComment on above:Result Comment: PERFORMED BY: [place] [address] PATHOLOGIST COSTUME DRAPER JODY SOLANO M.D.Performed By: #### LIPID, TSH3, CMP, CBC #### [facility] [address] [place] [address] USAComplete Blood Count Auto Diffon 98-63-0754Nsmuqzzqo (Bld) [#/Vol]0.451751899 10*3/uLNormal0.0-0.2 10*3/Interventional Imaging Other Basophils/100 WBC (Bld)0.900 %. %[place] Other Eosinophils (Bld) [#/Vol]0.350609370 10*3/uLNormal0.0- 0.45 10*3/Interventional Imaging Other Eosinophils/100 WBC (Bld)1.100 %. %[facility] [place] Other Erythrocyte distribution width (RBC) [Ratio]14.000 % Ahoomy59.9-15.3 %[facility] [place] Other Hematocrit (Bld) [Volume fraction]37.700 %Gkicyv76.0- 46.4 %[place] Other Hemoglobin (Bld) [Mass/Vol]12.009977 g/bASiuqcb29.8- 15.4 g/dLNoTusaar Corp Other Lymphocytes (Bld) [#/Vol]2.440984887 10*3/uLNormal 1.00-4.8 10*3/Interventional Imaging Other Lymphocytes/100 WBC (Bld)35.100 %. %[facility] [place] Other MCH (RBC) [Entitic mass]33.3000 pqIgkaey89.7-34.3 pg [place] Other MCV (RBC) [Entitic vol]99.7000 zGAdvymw92-704 fLBlue Nile Other Monocytes (Bld) [#/Vol]0.080549428 10*3/uLNormal0.0- 0.8 10*3/Interventional Imaging Other Monocytes/100 WBC (Bld)10.000 %. %[place] Other Neutrophils (Bld) [#/Vol]3.114427335 10*3/uLNormal1.8- 7.7 10*3/Interventional Imaging Other Neutrophils/100 WBC (Bld)52.900 %. %[facility] [place] Other Platelet mean volume (Bld) [Entitic vol]9.9000 fL Normal6.3-10.7 fLHuntsville Profit Point Other Platelets (Bld) [#/Vol]224 10*3/oILfarwu018-785 10*3/Interventional Imaging Other RBC (Bld) [#/Vol]3.78 10*6/uLNormal3.60-5.00[place] [employer] Other WBC (Bld) [#/Vol]7.485472661 10*3/uLNormal3.8-11.6 10*3/Interventional Imaging Other Complete Blood Count Auto Diff7.1 10*3/uLNormal3.8- 11.6 10*3/Interventional Imaging Other Complete Blood Count Auto Diff33.4 g/vESfjhqt41.0-35.0 g/dLBlue [place] Other Complete Blood Count Auto Diff0.1 /100{WBC}Normal0-0.5 /100{WBC}[place] Other Comprehensive Metabolic Panelon 30-96-2497Xguopvp [Mass/Vol]3.050967 g/dLNormal3.5-5.7 g/dLNoCleveFoundation [place] Other Albumin/Globulin [Mass ratio]1.7 {ratio}[facility] [place] Other ALP [Catalytic activity/Vol]140 U/PQouk80-997 U/[employer] Other ALT [Catalytic activity/Vol]71 U/LHigh7-52 U/[employer] Other AST [Catalytic activity/Vol]20 U/TFgztbt04-62 U/[employer] Other Bilirubin [Mass/Vol]0.5189399 mg/dLNormal0.3-1.0 mg/dL [place] Other Calcium [Mass/Vol]9.9279353 mg/dLNormal8.6-10.3 mg/dL [place] Other Chloride [Moles/Vol]107 mmol/HNolvfr68-887 mmol/[employer] Other CO2 [Moles/Vol]30.69371126 mmol/MBebnmx32.0-31.0 mmol/[employer] Other Creatinine [Mass/Vol]0.16850761 mg/dLNormal0.60-1.20 mg/dLNoTusaar Corp Other GFR/1.73 sq M.predicted MDRD (S/P/Bld) [Vol rate/Area] mL/min/{1.73_m2}[facility] [place] Other Glucose [Mass/Vol]89 mg/nJPlbldc62-032 mg/dLBlue [place] Other Potassium [Moles/Vol]3.40590708 mmol/LNormal3.5-5.1 mmol/[employer] Other Protein [Mass/Vol]6.949241 g/dLLow6.4-8.9 g/dLHuntsville [employer] [place] Other Sodium [Moles/Vol]143 mmol/XKdueaz042-067 mmol/LNwashington university medical center [place] Other Urea nitrogen [Mass/Vol]21 mg/dLNormal7-25 mg/dLHuntsville [employer] Other Comprehensive Metabolic Panel2.2 g/dLNoheartland behavioral health services [employer] [place] Other Free T4 (Free Thyroxine)on 95-98-0578Hbuj T4 [Mass/Vol]1.09077548 ng/dLHigh0.61-1.12 ng/dLHuntsville [employer] Other Thyroid Antibodies TPO+Tg Abon 93-34-9292Yeagbks Antibodies TPO+Tg Kq792-98Xozrh [place] Other Thyroid Antibodies TPO+Tg Ab<1.00.0-0.9[place] Other Thyroid Stimulating Hormoneon 67-53-3502TTB Qn 2.09946175255 m[IU]/LNormal0.45-5.33 u[iU]/mLNFlyer, Inc. Other Echocardiogramon 76-39-4563MxqofsggcbqwmkzkDgateDouglas Ville [address] TRANSTHORACIC ECHOCARDIOGRAM REPORT Patient Name: LAVONNE Bahena Physician: [id number] Shy Wolf [facility]OH[facility] Study Date: 02/26/2023 Referring SHY WOLF Physician: MRN/PID: [id number] PCP: Suhas Garrett MD Accession/Order#: [id number] [facility] Location: Date of : 1935 Fellow: Gender: F Nurse: Admit Date: Neurology Epilepsy Physician: Sheridan Escalantez RDCS, RVT Height: 157.48 cm CC Report to: Weight: 67.13 kg Study Type: Echocardiogram BSA: 1.68 m2 Blood Pressure: 122 /76 mmHg Diagnosis/ICD: I35.0-Nonrheumatic aortic (valve) stenosis; R01.1-Cardiac murmur, unspecified Indication: HTN, Hyperlipidemia, Overweight, Hypothyroid, Polymyalgia Rheumatica Procedure/CPT: Echo Complete w Full Doppler-07757 Study Detail: The following Echo studies were [...] velocity across the aortic valve has increased ecfh833 cm/s up to 374 cm/s and aortic [...] mmHg PIEDV: 2.50 m/s PADP: 28.0 mmHg [id number] Shy Wolf MD, FACC Electronically signed on 03/01/2023 at 2:16:46 PM Final NormalHealth[facility] LittletonOffice Visit (Cardiology)on [id number] visitDiagnoses/Problems Assessed Aortic stenosis (424.1) (I35.0) Murmur, cardiac (785.2) (R01.1) Essential hypertension (401.9) (I10) Hyperlipidemia (272.4) (E78.5) Overweight with body mass index (BMI) of 27 to 27.9 in adult (278.02,V85.23) (E66.3,Z68.27) Never smoker Hypothyroidism (244.9) (E03.9) PMR (polymyalgia rheumatica) (725) (M35.3) Orders Aortic stenosis, Murmur, cardiac Echocardiogram; Status:Hold For - Scheduling,Retrospective Authorization; Requested for:[id number]; Essential hypertension, Hyperlipidemia Changed: From Aspirin EC 81 MG TBEC TAKE 1 TABLET To Aspirin 81 MG Oral Tablet Delayed Release TAKE 1 TABLET DAILY Overweight with body mass index (BMI) of 27 to 27.9 in adult Healthy Weight Tips; Status:Complete - Retrospective Authorization; Done: [id number] Some eating tips that can help you lose weight.; Status:Complete - Retrospective Authorization; Done: [id number] SocHx: Never smoker Tobacco Use Screening; Status:Complete; Done: [id number] Patient Instructions Please bring all medicines, vitamins, [...] being tapered gradually [facility] Wolf [facility] Past [facility] History Problems History of [...] Multi Vitamin Oral TabletTAKE 1 TABLET DAILY. [place]-3 Fish Oil 1000 MG Oral CapsuleTAKE 1 [...] negative for complaint. Vitals Vital Signs Recorded: 41Pan3484 11:32AM Heart Rate68, R Radial Skcybxze200, RUE, Sitting Moyszvmbl74, RUE, Sitting Height5 ft 2 in Otsduq753 lb BMI Vuvpjmqmjh21.07 kg/m2 BSA Calculated1.68 Tobacco Useb) No PHQ-2 [...] included)...NormalUH TouchworksTobacco Screening.on 12-24-2022 [facility]No[facility] Work Phone: Fall risk assessmenta) No falls within the last year [facility] DO Work Phone: Tobacco use status CPHSb) [facility] Work Phone: Complete Blood Count Auto Diffon 91-11-9521Spfyiuofr (Bld) [#/Vol][id number] 10*3/uLNormal0.0-0.2 10*3/Interventional Imaging Other Basophils/100 WBC (Bld)0.700 %. %[facility] Other Eosinophils (Bld) [#/Vol]0.817699523 10*3/uLNormal0.0- 0.45 10*3/Interventional Imaging Other Eosinophils/100 WBC (Bld)0.700 %. %[facility] Other Erythrocyte distribution width (RBC) [Ratio]13.500 % Kerrvi89.9-15.3 %[facility] Other Hematocrit (Bld) [Volume fraction]38.400 %Ijgzaf22.0- 46.4 %[facility] Other Hemoglobin (Bld) [Mass/Vol]12.064892 g/lXOxflsr29.8- 15.4 g/dLNoCleveFoundation [place] Other Lymphocytes (Bld) [#/Vol]0.198288875 10*3/uLLow1.00- 4.8 10*3/Interventional Imaging Other Lymphocytes/100 WBC (Bld)12.600 %. %[facility] Other MCH (RBC) [Entitic mass]33.7000 pqSkaett27.7-34.3 pg [facility] Other MCV (RBC) [Entitic vol]100.4000 yAGjos86-324 fLCleveFoundation [place] Other Monocytes (Bld) [#/Vol]0.761548205 10*3/uLNormal0.0- 0.8 10*3/Interventional Imaging Other Monocytes/100 WBC (Bld)6.800 %. %[facility] Other Neutrophils (Bld) [#/Vol]5.971095219 10*3/uLNormal1.8- 7.7 10*3/Interventional Imaging Other Neutrophils/100 WBC (Bld)79.200 %. %[facility] Other Platelet mean volume (Bld) [Entitic vol]9.4000 fL Normal6.3-10.7 [facility] [employer] Other Platelets (Bld) [#/Vol]223 10*3/xDYkqnme486-457 10*3/Interventional Imaging Other RBC (Bld) [#/Vol]3.7615159895 10*6/uLNormal3.60-5.00 10*6/Interventional Imaging Other WBC (Bld) [#/Vol]6.132887457 10*3/uLNormal3.8-11.6 10*3/Interventional Imaging Other Complete Blood Count Auto Diff6.6 10*3/uLNormal4.5- 11.0 10*3/Interventional Imaging Other Complete Blood Count Auto Diff33.6 g/gEJutnou60.0-35.0 g/dLBlue Nile Other Complete Blood Count Auto Diff0.1 %Normal0-0.5 %[facility] Other Erythrocyte Sedimentation Rateon 90-53-7651OTR (Bld) [Velocity]28 mm/hNormal0-29[place] Other VASC LAB Carotid Artery Duplex Ultrasoundon 02-21-2022 US.doppler Carotid arteriesWillapa Harbor Hospital [facility] [address] [place] Work Phone: COVID Quick Testingon 12-14-9252XreqvvYimbvpovSftvw [place] Other Falls Screening (Age 18+)on 57-05-8659Mhwy risk assessmenta) No falls within the last yearWill[facility] 250 DO Work Phone: Office Visit (Cardiology)on 52-16-6553Dsruts-up visit Diagnoses/Problems Assessed Essential hypertension (401.9) (I10) [...] Multi Vitamin Oral TabletTAKE 1 TABLET DAILY. [place] 3 500 CAPSTAKE 1 CAPSULE Daily predniSONE 5 MG Oral Ppvrhg7XE 7.5MG BY MOUTH ONE DAILY ALTERNATING EVERY OTHER DAY Allergies Medication amoxicillin Hives;; Recorded By: Kayla Orr; 10/17/2021 10:50:34 AM Dilantin CAPS Rash; Recorded By: Kalya Orr; 10/17/2021 10:50:34 AM Fosamax eye pain; Recorded By: Kayla Orr; 10/17/2021 10:50:34 AM Depakote ER TB24 Recorded By: Kayla Orr; 10/17/2021 10:50:34 AM Vitals Vital Signs Recorded: 26Dec2021 11:04AMRecorded: 26Dec2021 11:00AM Heart Rate56, R Tkqyir05, R Radial Cfjlukly459, LUE, Bxoilxt509, RUE Zvvhlqctg95, LUE, Jbqhoks35, RUE Height5 ft 2 in5 ft 2 in Zziuhi071 lb 143 lb BMI Sgzefujdzf91.16 kg/m226.16 kg/m2 BSA Calculated1.661.66 Falls Screening (Age 18+)a) No falls within the last year Signatures Electronically signed by : Shy Wolf MD; Dec 26 2021 4:02PM EST (Author) [facility] TouchworksTobacco Screening.on 20-51-6976Dqere depression screening [facility]NoDo[facility] Work Phone: Fall risk assessmenta) No falls within the last year [facility] Work Phone: Tobacco use status CPHSb) [facility] Work Phone: Vital Signs Date TimeVital SignValuePerforming YxhznuuoaYdigqghn94-64-0964 11:07-0400Body tepxce014.5 cmShy Wolf MD Work Phone: [facility]08-08-2025 11:07-0400 Body mass index (BMI) [Ratio]27.44 kg/f8VvkoeeShy Wolf MD Work Phone: [facility]08-08-2025 11:07-0400 Body qpxlji36.04 kgShy Wolf MD Work Phone: [facility]08-08-2025 11:07-0400 Diastolic blood xtynwgxj25 mm[Hg]Shy Wolf MD Work Phone: 1(892)450-[address] [place], [place] 7663308-08-2025 11:07-0400 Heart rate60 /minShy Wolf MD Work Phone: 1(033)424-[address] [place], [place] 7663308-08-2025 11:07-0400 Systolic blood gexxatzo308 mm[Hg]Shy Wolf MD Work Phone: 1(701)560-[address] [place], [place] 7663307-15-2025 12:30-0400 Body kgsurm129.[address]07-15-2025 12:30-0400 Body mass index (BMI) [Ratio]26.52 kg/m[address] 12-21-2024 12:30-0400Body ivheib15.[address] 12-21-2024 12:30-0400Diastolic blood husrjsdp42 mm[Hg][address]07-15-2025 12:30-0400Systolic blood xrytyknf823 mm[Hg][address]07-02-2025 13:56-0400Diastolic blood luyjzxlt81 mm[Hg]Reuben Burns [employer] STRIPPER[employer]REFERRAL CLERK Work Phone: [phone](696)094-[address] [place], [place] 7663307-02-2025 13:56-0400 Systolic blood amzuledi754 mm[Hg]Reuben Burns [employer] H[employer] STRIPPER-REFERRAL CLERK Work Phone: 9(609)474-[address] [place], [place] 7663307-01-2025 14:59-0400 Body .5 cmReuben Burns AIR HAMMER STRIPPER-REFERRAL CLERK Work Phone: 1(572)740-[address] [place], [place] 7663307-01-2025 14:59-0400 Body mass index (BMI) [Ratio]26.45 kg/t1WhjsjReuben Burns AIR HAMMER STRIPPER-REFERRAL CLERK Work Phone: 6(395)463-[address] [place], [place] 7663307-01-2025 14:59-0400 Body .59 kgReuben Burns AIR HAMMER STRIPPER-REFERRAL CLERK Work Phone: 7(216)328-[address] [place], [place] 7663307-01-2025 14:59-0400 Heart rate62 /Torreymurali Burns [employer] HAMMER STRIPPER-REFERRAL CLERK Work Phone: [facility]11-08-2024 13:16-0500 Body rthwzi447.5 cmShy Wolf MD Work Phone: [facility]11-08-2024 13:16-0500 Body mass index (BMI) [Ratio]26.67 kg/g1MrpbbiShy Wolf MD Work Phone: 1(074)318-[address] [place], [place] 7663311-08-2024 13:16-0500 Body zfkuew89.13 kgShy Wolf MD Work Phone: 0(547)729-[address] [place], [place] 7663311-08-2024 13:16-0500 Diastolic blood fggsccak27 mm[Hg]Shy Wolf MD Work Phone: 1(128)359-[address] [place], [place] 7663311-08-2024 13:16-0500 Heart rate62 /minShy Wolf MD Work Phone: 5(221)764-[address] [place], [place] 7663311-08-2024 13:16-0500 Systolic blood uxryvjen608 mm[Hg]Shy Wolf MD Work Phone: 7(447)406-[address] [place], [place] 7663309-04-2024 12:28-0400 Body xygroj271.[address] [place], [place] 2507609-04-2024 12:28-0400 Body mass index (BMI) [Ratio]27.98 kg/m2Ely [address] [place] [address] 02-11-2024 12:28-0400Body hsgobq89.[address] [place] [address] 02-11-2024 12:28-0400Diastolic blood ierkonaa85 mm[Hg][address]09-04-2024 12:28-0400Systolic blood shpasotn342 mm[Hg][address]01-26-2024 11:15-0500Body .48 cmSuhas Garrett Other [place] [facility] [place] Other 477161-90-7211 11:15-0500Body mass index (BMI) [Ratio] 28.53 kg/k5Jizua Kunadan Other [facility] Other 01-26-2024 11:15-0500Body dklgly14.76 kgCarterraquel Garrett Other [facility] Other 01-26-2024 11:15-0500Diastolic blood bbejhwkw81 mm[Hg] Suhas Ugo Other [facility] Other 01-26-2024 11:15-0500Respiratory rate20 /minSuhas Ugo Other [facility] Other 01-26-2024 11:15-4209DrU2% (BldA) [Mass fraction]99 % Suhasraquel Mayoadan Other [facility] Other 01-26-2024 11:15-0500Systolic blood mmqdgabk994 mm[Hg] Suhas Garrett Other [facility] Other 01-11-2024 11:09-0500Body iavmlg392.5 cmShy Wolf MD Work Phone: [facility]01-11-2024 11:09-0500 Body mass index (BMI) [Ratio]27.98 kg/o2GsqlmaShy Wolf MD Work Phone: [facility]01-11-2024 11:09-0500 Body leqkrn52.4 kgShy Wolf MD Work Phone: [facility]01-11-2024 11:09-0500 Diastolic blood sssuqzoe36 mm[Hg]Shy Wolf MD Work Phone: [facility]01-11-2024 11:09-0500 Heart rate60 /minShy Wolf MD Work Phone: [facility]01-11-2024 11:09-0500 Systolic blood zqwpzyuv874 mm[Hg]Shy Wolf MD Work Phone: [facility]12-22-2023 11:00-0500 Body ohkaaw777.48 cmSuhas Garrett Other [facility] Other 245620-12-5444 11:00-0500Body mass index (BMI) [Ratio]27.8 kg/w3CjfehSuhas Garrett Other [facility] Other 12-22-2023 11:00-0500Body xgqypu30.95 kgSuhas Garrett Other [facility] Other 12-22-2023 11:00-0500Diastolic blood ligzskut15 mm[Hg] Suhas Garrett Other [facility] Other 12-22-2023 11:00-0500Respiratory rate18 /minSuhas Garrett Other [facility] Other 12-22-2023 11:00-5712RsS8% (BldA) [Mass fraction]96 % Suhas Garrett Other [facility] Other 12-22-2023 11:00-0500Systolic blood focfjkxn826 mm[Hg] Suhas Garrett Other [facility] Other 09-22-2023 10:30-0400Body .48 cmSuhas Garrett Other [facility] Other 09-22-2023 10:30-0400Body mass index (BMI) [Ratio] 27.98 kg/a5Svbqs Gaeladan Other [place] Other 09-22-2023 10:30-0400Body xewvki69.4 kgCarterraquel Garrett Other [place] [place] Other 09-22-2023 10:30-0400Diastolic blood mm[Hg] Suhas Garrett Other [place] [place] Other 09-22-2023 10:30-0400Respiratory rate16 /minCarterraquel Garrett Other [place] [place] Other 09-22-2023 10:30-0662HbQ7% (BldA) [Mass fraction]91 % Suhas Gaeladan Other [place] [facility] Other 09-22-2023 10:30-0400Systolic blood wyuybaki572 mm[Hg] Suhas Garrett Other [place] [place] Other 07-18-2023 11:32-0400Body lgzibn821.48 cmSuhas Hoffman Ugo Work Phone: [phone]-Cncqb [place] [facility] 250 DO Work Phone: 1(482) 996-738607-18-2023 11:32-0400Body mass index (BMI) [Ratio] 27.07 kg/x4Ddcsf P Ugo Work Phone: [phone]-Ltxkv [place] [facility] 250 DO Work Phone: 1(320) 600-391707-18-2023 11:32-0400Body surface area Derived from formula1.68 m1Ftsae P Gaels Work Phone: mp820-5415UQ-Pyhdq [facility] 250 DO Work Phone: 1(921) 275-515107-18-2023 11:32-0400Body ozxtoo99.13 kgSuhas Mayoadan Work Phone: [phone]-Yscyu [facility] 250 DO Work Phone: 1(463) 599-283907-18-2023 11:32-0400Diastolic blood mm[Hg] Suhas Garrett Work Phone: mp470-7446KW-Nahwa [facility] 250 DO Work Phone: 1(562) 320-682307-18-2023 11:32-0400Heart rate68 /minSuhas Mayos Work Phone: mp936-6937FY-Aemfv [facility] 250 DO Work Phone: 1(543) 358-801807-18-2023 11:32-0400Systolic blood gseqbhvb738 mm[Hg] Suhas Garrett Work Phone: [phone]-Ypidw [facility] 250 DO Work Phone: 1(517) 570-780806-30-2023 10:30-0400Body eqmgmw190.48 cmSuhas Garrett Other [facility] Other 06-30-2023 10:30-0400Body mass index (BMI) [Ratio] 27.98 kg/l0CkjbzSuhas Garrett Other [facility] Other 06-30-2023 10:30-0400Body uylxds78.4 kgSuhas Garrett Other [facility] Other 06-30-2023 10:30-0400Diastolic blood qmuuzjnl22 mm[Hg] Suhas Garrett Other [facility] Other 06-30-2023 10:30-0400Respiratory rate16 /minSuhas Garrett Other [facility] Other 06-30-2023 10:30-4103CmA1% (BldA) [Mass fraction]98 % Suhas Garrett Other [facility] Other 06-30-2023 10:30-0400Systolic blood lmmaxsfs609 mm[Hg] Suhasraquel Garrett Other [facility] Other 04-14-2023 11:45-0400Body cgazea272.48 cmSuhas Garrett Other [facility] Other 04-14-2023 11:45-0400Body mass index (BMI) [Ratio] 26.34 kg/h8MzzndSuhas Garrett Other [facility] Other 04-14-2023 11:45-0400Body hrjuqa65.32 kgSuhas Garrett Other [facility] Other 04-14-2023 11:45-0400Diastolic blood vxqblyje04 mm[Hg] Suhas Garrett Other [facility] Other 04-14-2023 11:45-0400Respiratory rate16 /minSuhas Garrett Other [facility] Other 04-14-2023 11:45-3914FeO2% (BldA) [Mass fraction]98 % Suhasraquel Garrett Other [facility] Other 04-14-2023 11:45-0400Systolic blood mm[Hg] Suhasraquel Mayoadan Other [facility] Other 02-13-2023 11:30-0500Body .48 cmSuhas Garrett Other [facility] Other 02-13-2023 11:30-0500Body mass index (BMI) [Ratio] 26.85 kg/x0UgvvsSuhas Garrett Other [facility] Other 02-13-2023 11:30-0500Body tmebvb92.59 kgCarterraquel Garrett Other [facility] Other 02-13-2023 11:30-0500Diastolic blood lelvauhk53 mm[Hg] Suhas Ugo Other [facility] Other 02-13-2023 11:30-0500Respiratory rate16 /minBryraquel Garrett Other [facility] Other 02-13-2023 11:30-7807SuX0% (BldA) [Mass fraction]98 % Suhas Garrett Other [facility] Other 02-13-2023 11:30-0500Systolic blood mm[Hg] Suhas Garrett Other [facility] Other 11-09-2022 11:45-0500Body ynrjmd406.48 cmCarterraquel Garrett Other [facility] Other 11-09-2022 11:45-0500Body mass index (BMI) [Ratio] 26.88 kg/f7Gyaor Kuns Other [facility] Other 11-09-2022 11:45-0500Body jsuute22.68 kgCarterraquel Garrett Other [employer] Other 11-09-2022 11:45-0500Diastolic blood zthkuiru22 mm[Hg] Suhas Ugo Other [facility] Other 11-09-2022 11:45-0500Respiratory rate16 /minSuhas Garrett Other [facility] Other 11-09-2022 11:45-4969MfO9% (BldA) [Mass fraction]99 % Suhas Garrett Other [facility] Other 11-09-2022 11:45-0500Systolic blood rwvvtemo438 mm[Hg] Suhas Garrett Other [facility] Other 09-16-2022 10:15-0400Body qmtfri870.48 cmSuhas Garrett Other [facility] Other 09-16-2022 10:15-0400Body mass index (BMI) [Ratio] 27.07 kg/h4Ygoru Kunadan Other [facility] Other 09-16-2022 10:15-0400Body gzaqxp96.13 kgCarterraquel Garrett Other [facility] Other 09-16-2022 10:15-0400Diastolic blood kyqvqbtt85 mm[Hg] Suhas Garrett Other [facility] Other 09-16-2022 10:15-0400Respiratory rate16 /minSuhas Garrett Other [facility] Other 09-16-2022 10:15-9968ZiE6% (BldA) [Mass fraction]97 % Suhas Garrett Other [facility] Other 09-16-2022 10:15-0400Systolic blood uwruhjfq156 mm[Hg] Suhas Garrett Other [facility] Other 09-15-2022 10:45-872559 1Bprimo Garrett Work Phone: [phone][place]sg[place] [address]A [place] Work Phone: Comment on above:[id number] 15:45-0400Body .48 cmSuhas Garrett Other [facility] Other 09-08-2022 15:45-0400Body mass index (BMI) [Ratio]26.7 kg/p7EoresSuhas Garrett Other [facility] Other 09-08-2022 15:45-0400Body .23 kgSuhas Garrett Other [facility] Other 09-08-2022 15:45-0400Diastolic blood hfyssjxy13 mm[Hg] Suhas Garrett Other [facility] Other 09-08-2022 15:45-0400Respiratory rate16 /minSuhas Garrett Other [facility] Other 09-08-2022 15:45-4790RgJ9% (BldA) [Mass fraction]96 % Suhas Garrett Other [facility] Other 09-08-2022 15:45-0400Systolic blood wekpmzjy401 mm[Hg] Suhas Garrett Other [place] Other 07-20-2022 11:04-0400Body duazra365.48 cmSuhas Garrett Work Phone: mp262-4653YB-Sxzwv [facility] [address] DO Work Phone: 1(886) 108-647807-20-2022 11:04-0400Body mass index (BMI) [Ratio] 26.16 kg/k8HetqySuhas Garrett Work Phone: mp500-9324LZ-Wmfmu [facility] [address] DO Work Phone: 1(291) 995-906407-20-2022 11:04-0400Body surface area Derived from formula1.66 j6ZtcscSuhas Garrett Work Phone: mp936-7455RE-Hyibi [facility] 250 DO Work Phone: 1(669) 797-493907-20-2022 11:04-0400Body oqkvyt43.86 kgSuhas Garrett Work Phone: mp868-8454HK-Finha [facility] 250 DO Work Phone: 1(765) 599-875107-20-2022 11:04-0400Diastolic blood okqatlvp62 mm[Hg] Suhas Garrett Work Phone: mp111-2183BM-Sbobr [facility] 250 DO Work Phone: 1(927) 542-502407-20-2022 11:04-0400Heart rate56 /minSuhas Garrett Work Phone: mp838-9398IF-Axrwe [facility] 250 DO Work Phone: 1(277) 551-330907-20-2022 11:04-0400Systolic blood euefjpul639 mm[Hg] Suhas Garrett Work Phone: mp212-8872GJ-Qarjh [facility] 250 DO Work Phone: 1(684) 707-958007-20-2022 11:00-0400Diastolic blood doasbtri05 mm[Hg] Suhas Garrett Work Phone: 1(685) 851-1191145-6086BH-Eikyc [facility] 250 DO Work Phone: 1(388) 730-617407-20-2022 11:00-0400Systolic blood dzcwanoh910 mm[Hg] Suhas Garrett Work Phone: 1(846) 191-9083910-1539DE-Vxoae [facility] 250 DO Work Phone: 1(644) 915-996907-07-2022 11:39-0400Diastolic blood rbxmrucw21 mm[Hg] Suhas Garrett Work Phone: 1(215)[address] [place] [address] Work Phone: 1(657) 250-493707-07-2022 11:39-0400Systolic blood wkbakuwf728 mm[Hg] Suhas Garrett Work Phone: 1(160)[address] [place] [address] Work Phone: 1(776) 439-105307-07-2022 11:22-0400Diastolic blood khugtjfy07 mm[Hg] Suhas Garrett Work Phone: 1(367)[address] [place] [address] Work Phone: 1(220) 503-483307-07-2022 11:22-0400Systolic blood mm[Hg] Suhas Garrett Work Phone: 1(865)[address] [place] [address] Work Phone: 1(291) 635-317507-07-2022 11:17-0400Body xmkipc101.48 cmSuhas Garrett Work Phone: 1(751)[address] [place] [address] Work Phone: [phone] 11:17-0400Body mass index (BMI) [Ratio] 26.52 kg/a0CeimrSuhas Garrett Work Phone: 1(091)[facility]78[facility] Work Phone: [phone] 11:17-0400Body surface area Derived from formula1.67 x0MuhybSuhas Garrett Work Phone: 1(977)[address] [place] [address] Work Phone: 1(937) 184-219807-07-2022 11:17-0400Body dvchmo22.77 kgSuhas Garrett Work Phone: 1(419)[address] [place] [address] Work Phone: 1(698) 436-989907-07-2022 11:17-0400Diastolic blood dorlhxeu44 mm[Hg] Suhas Garrett Work Phone: [facility] Work Phone: 1(664) 446-672707-07-2022 11:17-0400Heart rate60 /minSuhas Garrett Work Phone: [facility] Work Phone: 1(629) 297-112107-07-2022 11:17-0400Systolic blood ereodocy904 mm[Hg] Suhas Garrett Work Phone: [facility] Work Phone: 1(889) 270-493904-25-2022 13:30-0400Body qqjipq972.48 cmSuhas Garrett Other [facility] Other 04-25-2022 13:30-0400Body mass index (BMI) [Ratio] 26.34 kg/r2VrwdjSuhas Garrett Other [facility] Other 04-25-2022 13:30-0400Body kxqnyz91.32 kgSuhas Garrett Other [facility] Other 04-25-2022 13:30-0400Diastolic blood fblwcxyf18 mm[Hg] Suhas Garrett Other [facility] Other 04-25-2022 13:30-0400Respiratory rate18 /minSuhas Garrett Other [facility] Other 04-25-2022 13:30-2129PaF0% (BldA) [Mass fraction]99 % Suhas Garrett Other [facility] Other 04-25-2022 13:30-0400Systolic blood yyxcbjoi562 mm[Hg] Suhas Garrett Other [facility] Other 02-24-2022 13:30-0500Body .48 cmCarterraquel Garrett Other [facility] Other 02-24-2022 13:30-0500Body mass index (BMI) [Ratio] 26.52 kg/x5Patjr Kunadan Other [facility] Other 02-24-2022 13:30-0500Body deayvk18.77 kgCarterraquel Garrett Other [facility] Other 02-24-2022 13:30-0500Diastolic blood uczhjlgq98 mm[Hg] Suhas Garrett Other [facility] Other 02-24-2022 13:30-0500Respiratory rate16 /minSuhas Garrett Other [facility] Other 02-24-2022 13:30-6003SwR5% (BldA) [Mass fraction]99 % Suhas Garrett Other [facility] Other 02-24-2022 13:30-0500Systolic blood jolczvpi658 mm[Hg] Suhas Ugo Other [facility] Other 11-18-2021 13:30-0500Body jbbqhy377.48 cmSuhas Garrett Other [facility] Other 11-18-2021 13:30-0500Body mass index (BMI) [Ratio] 25.97 kg/q4WcmvsSuhas Garrett Other [employer] Other 11-18-2021 13:30-0500Body xuwcwm54.41 kgSuhas Garrett Other [facility] Other 11-18-2021 13:30-0500Diastolic blood admewuja36 mm[Hg] Suhas Garrett Other [facility] Other 11-18-2021 13:30-0500Respiratory rate17 /minSuhas Garrett Other [facility] Other 11-18-2021 13:30-7514MkQ9% (BldA) [Mass fraction]98 % Suhas Garrett Other [employer] Other 11-18-2021 13:30-0500Systolic blood ytctxhfn772 mm[Hg] Suhas Garrett Other [facility] Other Encounters Encounter DateEncounter TypeCare ProviderFacilityStart: 02-14-2025 End: 43-12-9860cqzdhpiegcTklqlysJorge Weston MDFacility:[facility] Start: 01-14-2025 End: 87-01-8196Naijxb outpatient visit 25 minutesShy Wolf MD Work Phone: [facility] Hospital[facility] on above:Nonrheumatic aortic valve stenosis (Primary Dx); 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; Hyperlipidemia, unspecified hyperlipidemia type; PMR (polymyalgia rheumatica) (Multi); Hypothyroidism, unspecified type; BMI 27.0-27.9,adult; Never smoked any substance; OverweightStart: 01-14-2025 End: 74-29-7011ddmkitafwjZDKYOO M IBRThe [facility] AmbulatoryStart: 12-21-2024 End: 60-49-7532Mhleeyxyoh hospital visit by Julia Baker [facility] MontgomeryComment on above:Aortic valve stenosis, etiology of cardiac valve disease unspecifiedStart: 12-21-2024 End: 45-26-1288ozzeyneisbHYIHHJCleveland Clinic Children's Hospital for Rehabilitationtart: 12-07-2024 End: 99-65-6389Cchaaz outpatient visit 15 Silkemayo [address] BURGER Work Phone: [facility] Access HospitalComment on above: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 (Primary Dx); BMI 26.0-26.9,adultStart: 12-07-2024 End: 81-79-1007boilukjbbqPUUIHAtrium Health [facility] AmbulatoryStart: 10-25-2024 End: 64-96-2691ihktsxsuqnAarelhf Vytautas Giedraitis MDFacility:[facility] Start: 09-13-2024 End: 18-69-5795rgdgjjnvpkOgpygmx Vytautas Giedraitis MDFacility:[facility] Start: 07-28-2024 End: 39-70-0815hdceritvxaCnapo UgoFacility:[facility] Start: 05-25-2024 End: 50-39-2987gzehfalzvuQuktg KunsFamonroe county hospital and clinics:[facility] Start: 04-16-2024 End: 85-01-2137Kbmhik outpatient visit 25 minutesShy Wolf MD Work Phone: [facility] Access HospitalComment on above:Aortic valve stenosis, etiology of cardiac valve disease unspecified (Primary Dx); Essential hypertension; Hyperlipidemia, unspecified hyperlipidemia type; Never smoked any substance; BMI 26.0-26.9,adult; Hypothyroidism, unspecified typeStart: 04-16-2024 End: 50-26-2614omqiidpvuwNNOKFO [facility] AmbulatoryStart: 02-11-2024 End: 52-27-7235Decdhrzniu hospital visit by Julia Baker [facility] on above:Nonrheumatic aortic valve stenosis; Aortic valve stenosis, etiology of cardiac valve disease unspecifiedStart: 02-11-2024 End: 79-47-0467rsqzntqasuBOWUUJ [facility]: 10-14-2023 End: 27-65-5852bgpfgtfwkoDcnhi KunsFacility:[facility] Start: 09-03-2023 End: 52-67-7354kcneprdvyhFlems GaelsFacility:[facility] Start: 07-18-2023 End: 83-18-1352hcctnagahzPtyvt Gaels Other [employer] Other Start: 28-86-5357Qdzzpivln encounterBryraquel MayosFPG [facility] [place]Start: 07-15-2023 End: 62-70-1494tqsaslwzxlJpyub Kuns Other [employer] Other Start: 81-80-7153Bdvigvxnh encounterBryraquel MayosFP[facility] [place]Start: 07-10-2023 End: 77-24-8744jldsmcdqixZrlqv Kuns Other [employer] Other Start: 57-07-4464Nxlzguqmh encounterBryraquel MayosFPG [facility] [place]Start: 07-07-2023 End: 62-78-8144xqegtrdvheWtfay Kuns Other [employer] Other Start: 58-01-6561Jlpaitogr encounterBryraquel MayosFP[facility] [place]Start: 07-04-2023 End: 42-42-3949kjlxsrldjwKzztm Kuns Other [employer] Other Start: 49-31-7307Ibpxbc outpatient visit 15 minutes Suhas MayosFP[facility] [place]Start: 06-19-2023 End: 59-41-1626nxdwrsrtavHsgrw Kuns Other [employer] Other Start: 99-24-3898Noapteite encounterSuhas MayoCory [facility] Medicine [place]aliaStart: 06-19-2023 End: 93-89-1684Prqcsg outpatient visit 25 minutesShy Wolf MD Work Phone: [facility] CenterComment on above:Aortic valve stenosis, etiology of cardiac valve disease unspecified; Essential hypertension; Hyperlipidemia, unspecified hyperlipidemia type; Never smoked any substanceStart: 05-30-2023 End: 23-45-1253diqfortmdeAbhzp Kuns Other [employer] Other Start: 95-30-9517Wqgdcn outpatient visit 25 minutes Suhas MayoadanLEYDI [facility] Medicine [place]Start: 05-28-2023 End: 22-57-3075vdfiiajwqwJfjdf Kuns Other [employer] Other Start: 42-18-9182Rkglrhuos encounterSuhas MayoDereckShravan [facility] [place]aliaStart: 04-23-2023 End: 13-18-4175xfnlsljcnsIgqgu Kuns Other [employer] Other Start: 35-31-5535Kgwocusxo encounterSuhas MayoDereckShravan [facility] [place]aliaStart: 04-18-2023 End: 98-79-2994wkyxkzghrrWlmko Kuns Other [employer] Other Start: 60-28-4823Ffkzrcecw encounterSuhas MayoadanFPG Family [facility] [place]aliaStart: 93-44-9990Pyzlz UpdateSuhas Garrett Work Phone: [phone]-RhzzjChildren's [place] 250 DO Work Phone: Start: 02-28-2023 End: 96-17-9440nvxgmoqywcFcbss Kuns Other [employer] Other Start: 66-86-3873Totwzc outpatient visit 15 minutes Suhas GaelCory Family [facility] CastaliaStart: 76-56-2778uyywnpcemwEk. Suhas GarrettLourdes Counseling Centerity:9844Start: 01-27-2023 End: 65-58-5089oditscimqdZzyqc Kuns Other [employer] Other Start: 83-23-2471Vxibnckjl encounterBryraquel Sommers [facility] [place]aliaStart: 15-28-5547Axfxji outpatient visit 25 minutesSuhas Garrett Work Phone: [phone]-PmunxMark [place] [address] [place] Work Phone: Start: 97-59-6394rwsesxtijiHr. Shy Agosto [facility] Facility:[id number]: 12-06-2022 End: 91-37-4776hezhcugotcYbcao Kuns Other [employer] Other Start: 80-07-9422Slwiwg outpatient visit 15 minutes Suhas GaelCory Family [facility] [place]aliaStart: 09-20-2022 End: 28-01-2720gsqpyrzwbhMgufv Kuns Other [employer] Other Start: 06-56-9936Ensoiu outpatient visit 15 minutes Suhas GaelCory Family [facility] [place]aliaStart: 08-14-2022 End: 88-83-6346ttamggedhqDeirz Kuns Other [employer] Other Start: 46-79-8548Rwadslapp encounterBryraquel GaelCory Family Medicine [place]aliaStart: 07-22-2022 End: 89-71-0879srmytfzczbUulwb Kuns Other [employer] Other Start: 83-07-0315Bkxdgm outpatient visit 15 minutes Suhas Sommers [facility] [place]Start: 04-17-2022 End: 60-36-7577jequubhjfhJzvbw Kuns Other [employer] Other Start: 73-05-0672Gzywpa outpatient visit 15 minutes Suhas ManciniG Family Medicine [place]Start: 04-10-2022 End: 58-85-3319hhoqaazqtkEhxtn Kuns Other [employer] Other Start: 69-98-1261Qfnvjqotq encounterBryraquel GarrettFPG [facility] [place]aliaStart: 04-03-2022 End: 77-11-1510hgukphrmebDlcfo Kuns Other [employer] Other Start: 74-51-2758Ijtcbpkrh encounterBryraquel GarrettFPG [facility] [place]aliaStart: 04-02-2022 End: 84-45-3488hdaycytiycVkmhv Kuns Other [facility] [employer] Other Start: 24-57-9473Zkkdhpodj encounterBryraquel GarrettFPG [facility] [place]aliaStart: 02-26-2022 End: 58-40-8572bqcpbitwxzYtcnx Kuns Other [facility] [employer] Other Start: 52-92-4238Injktjmgo encounterBryraquel GarrettFPG [facility] [place]aliaStart: 02-25-2022 End: 28-66-8246hrvabjqevfRpwod Kuns Other [employer] Other Start: 24-76-2407Qootebzrw encounterBryraquel MayosFPG [facility] [place]Start: 02-22-2022 End: 01-53-1837frrczitkzuWnggv Kuns Other [facility] [employer] Other Start: 68-59-3048Tcmnxk outpatient visit 25 minutes Suhas MayoadanLEYDI Family Medicine [place]Start: 80-17-8499Otibiii encounter procedureSuhas Garrett Work Phone: [phone]-MdkcvFederal [facility] [place] [address] [place] Work Phone: Start: 02-20-2022 End: 54-38-7455xcrsnebnsoUBKWNZQ M MANONFacility:X6Jtnpm: 02-14-2022 End: 87-14-4244wtlujwgjlqVryym Kuns Other [facility] [employer] Other Start: 57-55-8220Dffedu outpatient visit 25 minutes Suhas Sommers [facility] [place]Start: 01-11-2022 End: 87-58-0489zvscvviqriWsusp Kuns Other [facility] [employer] Other Start: 77-99-5900Rjgytqx evaluation of patient and reportBryraquel MayoadanLEYDI Family Medicine [place]aliaStart: 36-93-0874Miikqzmcs encounter Suhas GaeladanLEYDI Family Medicine [place]aliaStart: 77-02-4087Lhzgwd outpatient visit 10 minutesSuhas Garrett Work Phone: [phone]-YmafzFederal Medical Center, [place] 250 DO Work Phone: Start: 82-79-5914rspbqfprqiLf. Bryan Patrick Kuns Facility:[id number]: 12-20-2021 End: 36-68-3072ihhvncysiqUngho Kuns Other [employer] Other Start: 68-54-6667Hrnoiysrp encounterSuhas MayoadanLEYDI Family [facility] [place]Start: 02-65-7056Xbovzn outpatient visit 25 minutesSuhas Garrett Work Phone: [facility] Work Phone: Start: 11-02-2021 End: 18-68-5280jhgkdwitvgXitxy Kuns Other [employer] Other Start: 12-51-3217Mmojrnqjq encounterBryraquel GarrettFPG [facility] [place]Start: 10-01-2021 End: 08-84-4972ggkergpsyuDdlzf Kuns Other [employer] Other Start: 10-49-0708Kvcomk outpatient visit 15 minutes Suhas GarrettFPG [facility] [place]Start: 09-10-2021 End: 33-34-9458zybszxvzqwLjxzn Kuns Other [employer] Other start: 52-48-0874Vxclepiih encounterBryraquel GarrettFPG [facility] [place]aliaStart: 08-20-2021 End: 93-16-2451yodtpbbprkFxorp Kuns Other [employer] Other Start: 50-14-0761Iqtvhvdpo encounterBryraquel GarrettFPG [facility] [place]aliaStart: 08-02-2021 End: 59-18-2320pcjyntlmzcXqeot Kuns Other [employer] Other Start: 68-01-4462Ichdkx outpatient visit 15 minutes Suhas GarrettFPG [facility] [place]Start: 07-25-2021 End: 38-78-0058yfymdbgvgzIamqo Kuns Other [employer] Other Start: 60-71-8143Svijhwjeh encounterBryraquel GarrettFPG [facility] [place]aliaStart: 05-08-2021 End: 63-59-4850owdhmvmcfbWktyg Kuns Other [employer] Other start: 13-32-6751Coiowftaf encounterCarterraquel Matthieu [facility] [place]aliaStart: 04-26-2021 End: 91-59-9416ngadhicyoiGpuff Kuns Other [facility] [employer] Other Start: 72-03-4123Trxadb outpatient visit 25 minutes Suhas Sommers [facility] [place] Procedures DateProcedureProcedure Detail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Start: 42-81-4137Pzsp [facility] r-t 2d w/wom-mode compl spec&colr Clayton Wolf MD Work Phone: Start: 01-79-8294MhbfbblwnovtxtmiVhdkg P Kuns Work Phone: Start: 10-88-8368HgopdnebepmudzizUrmhg P Kuns Work Phone: AppendectomyBryan P Kuns Work Phone: CholecystectomyBryan P Kuns Work Phone: Operation on ovaryBryan P Kuns Work Phone: ThyroidectomyBryan P Kuns Work Phone: Total colonoscopyBryan P Kuns Work Phone: Plan of Treatment DateCare ActivityDetailAuthorStart: 30-15-6820XDyW/Tdap/Td Vaccines (2 - Td or Tdap)DTaP/Tdap/Td Vaccines (2 - Td or Tdap)[facility] Start: 01-26-2026 End: 29-51-9125Huuwbfy encounter duheyehki65/20/2026 11:00 AM EDT Office Visit [facility] [address] [facility] [address] [place] [address] Shy Wolf MD [address] [facility] [address], [address] [place] [address] [facility] CenterStart: 31-99-8520RohbggjgpuzhcslhOapwyzewgtzvkw [facility]: 12-20-2025 End: 61-94-0075Kmxxcip encounter ypglzjuau28/14/2026 10:45 AM EDT Appointment [place] [address] [facility] [address] [place] [phone] [facility] MontgomeryStart: 12-14-2025 End: 98-27-3838IU Heart TransthoracicTransthoracic Echo Complete Echocardiography Routine Nonrheumatic aortic valve stenosis Expected: 12/14/2025 (Approximate), Expires: 01/14/2027[facility] Service Area Work Phone: Comment on above:Expected: 12/14/2025 (Approximate), Expires: 01/14/2027Start: 03-01-2026Medicare Annual Wellness VisitMedicare Annual Wellness Visit (AWV)[facility]: 02-10-2025 EchocardiographyEchocardiogramUnGalion Hospital: 02-07-2025 Influenza vaccinationInfluenza Vaccine (#1)[facility] Start: 01-14-2025 End: 12-07-7242GK Heart TransthoracicTransthoracic Echo Complete Echocardiography Routine Aortic valve stenosis, etiology of cardiac valve disease unspecified Expected: 01/14/2025 (Approximate), Expires: 04/16/2026[facility] Service Area Work Phone: Comment on above:Expected: 01/14/2025 (Approximate), Expires: 04/16/2026Start: 01-14-2025 End: 97-60-2148Aqdfqig encounter xglklozde00/08/2025 11:00 AM EDT Office Visit [address] [place] [phone] Shy Wolf MD [address] [facility] [address], [address] [place] [address] [facility]: 12-21-2024 End: 03-48-6458Xhrlpic encounter bquuxmunk59/15/2025 12:30 PM EDT Appointment [place] [address] [place] [address] [place] [address] [facility]: 56-52-7351GSFPA-19 Vaccine ( season)COVID-19 Vaccine ( season)[facility]: 03-16-2024 End: 97-06-8475Kdxuvrk encounter mkstteofh14/08/2024 11:20 AM EDT Office Visit [address] [phone] Shy Wolf MD [address] [facility] [address], [address] [address] [facility]: 62-78-8728Fbgooyecr for osteoporosisBone Density [facility]: 02-11-2024 End: 75-19-9645Cadomqf encounter jkepogtru67/04/2024 12:30 PM EDT Appointment [address] [phone] [facility]: 47-84-2835JSSUX-19 Vaccine ( season)COVID-19 Vaccine ( season)[facility]: 02-08-2024 Influenza vaccinationInfluenza Vaccine (#1)[facility] Start: 02-08-2024 End: 89-53-6159XT Heart TransthoracicTransthoracic Echo (TTE) Complete Echocardiography Routine Aortic valve stenosis, etiology of cardiac valve disease unspecified Expected: 02/08/2024 (Approximate), Expires: 06/19/2025[facility] Service Area Work Phone: Comment on above:Expected: 02/08/2024 (Approximate), Expires: 06/19/2025Start: 53-70-4069MIA, Provider: Shy Wolf, Status: Pen, Time: 11:00 AMFUV, Provider: Shy Wolf, Status: Pen, Time: 11:00 AMMark [place] [address] DO Work Phone: Start: 68-79-8558UZFMT-19 Vaccine (5 - Moderna series) COVID-19 Vaccine (5 - Moderna series)[facility] CenterStart: 69-09-4643FALI, Provider: SAMUEL HHVI ULTRASOUND 01,[id number], Status: Pen, Time: 10:45 AMECHO, Provider: SAMUEL YII ULTRASOUND 01,[id number], Status: Pen, [facility]: 10:45 [facility] [address] DO Work Phone: Start: 69-04-1388SNP, Provider: Shy Wolf, Status: Pen, Time: 11:20 AMFUV, Provider: Shy Wolf, Status: Pen, [facility]: [facility] Start: 87-46-4593DOQFXPN, Provider: SAMUEL YII ULTRASOUND 01,[id number], Status: Pen, Time: 12:30 PMCAROTID, Provider: SAMUEL HHVI ULTRASOUND 01,[id number], Status: Pen, Time: 12:30 [facility] Work Phone: start: 42-35-3709ATAP, Provider: SAMUEL HHVI ULTRASOUND 01,[id number], Status: Pen, Time: 10:45 AMECHO, Provider: SAMUEL HHVI ULTRASOUND 01,[id number], Status: Pen, Time: 10:45 [facility] Work Phone: start: 68-69-9968WMBZMMA, Provider: SAMUEL HHVI ULTRASOUND 01,[id number], Status: Pen, Time: 2:30 PMCAROTID, Provider: SAMUEL HHVI ULTRASOUND 01,[id number], Status: Pen, Time: 2:30 [facility] Work Phone: start: 09-47-3910ZJBJ, Provider: SAMUEL HHVI ULTRASOUND 01,[id number], Status: Pen, Time: 1:30 PMECHO, Provider: SAMUEL HHVI ULTRASOUND 01,[id number], Status: Pen, Time: 1:30 [facility] Work Phone: Start: 72-25-7165PYODGHOC, Provider: MAGDA DANIEL CALL CENTER CONSULTANT 1,[id number], Status: Pen, Time: 11:00 AMNURSEVST, Provider: MAGDA DANIEL CALL CENTER CONSULTANT 1,[id number], Status: Pen, Time: 11:00 [facility] Work Phone: Start: 14-15-8899Wrhrgvzlv B Vaccines (1 of 3 - Risk 3-dose series)Hepatitis B Vaccines (1 of 3 - Risk 3-dose series)[facility]: 73-65-4609Hzvkserui A Vaccines (1 of 2 - Risk 2- dose series)Hepatitis A Vaccines (1 of 2 - Risk 2-dose series)[facility]: 45-03-3521Wzciqokwvm measurementCreatinine Level [facility]: 60-94-1500Qkmpi panelLipid Panel [facility]: 03-04-1937Medicare Annual Wellness Visit Medicare Annual Wellness Visit (AWV)[facility]: 07-14-4719Orihtyjgc measurementPotMcBride Orthopedic [facility] [place] Start: 24-17-7699Kvorngg stimulating hormone measurementTSCornerstone Specialty Hospitals Muskogee – MuskogeeECG 12 LeadECG 12 Lead ECG Routine 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 Ordered: 12/08/2024[facility] Area Work Phone: Comment on above:Ordered: 12/08/2024 End: 91-62-5626QG [facility]acicSt[facility] Work Phone: Comment on above:Once for 1 Occurrences starting 02/11/2024 until 02/11/2024 Immunizations Immunization DateImmunizationNotesCare YytrmhkoHzfgcbke20-85-7740Gnbvtdyluxzo conjugate vaccine, 20-valent (PREVNAR 20)Shy Wolf MD Work Phone: [facility] Work Phone: [phone]raf COVID-19 vaccine, 12 years and older (50mcg/0.5mL)(Spikevax)Shy Wolf MD Work Phone: [facility] Work Phone: [phone] trivalent influenza vaccine, adjuvanted, preservative freeShy Wolf MD Work Phone: [facility] Work Phone: [phone] virus vaccine, unspecified formulationReuben Burns AIR HAMMER STRIPPER-REFERRAL CLERK Work Phone: [facility] Work Phone: [phone] SYNCYTIAL VIRUS (RSV), ELIGIBLE PTS, 0.5 ML (ABRYSVO)Shy Wolf MD Work Phone: [facility] Work Phone: [phone], Seasonal, Quadrivalent, AdjuvantedShy Wolf MD Work Phone: [facility] Work Phone: [phone] COVID-19 vaccine, 12 years and older (50mcg/0.5mL)(Spikevax)Shy Wolf MD Work Phone: [facility] Work Phone: [phone] virus vaccine, unspecified formulationEly 2[facility] Work Phone: [phone] COVID-19 Bivalent 50 MCG/0.5ML Intramuscular SuspensionSuhas Garrett Work Phone: mp-[facility] [address] DO Work Phone: [phone] Quadrivalent 0.5 ML Intramuscular Prefilled SyringeBryraquel P Ugo Work Phone: [phone]-TjwmyFederal Medical Center, [place] 250 DO Work Phone: [phone], seasonal, injectableBryan Kuns Other [facility] [employer] Other [id number] COVID-19 Vaccine 100 MCG/0.5ML Intramuscular SuspensionBryan P Kuns Work Phone: [facility] Work Phone: [phone] COVID-19 Vaccine 100 MCG/0.5ML Intramuscular SuspensionBryan P Kuns Work Phone: [facility] Work Phone: [phone], seasonal, injectableBryan Kuns Other [employer] Other 03880138-39-7888Byjxecw COVID-19 Vaccine 100 MCG/0.5ML Intramuscular SuspensionBryan P Kuns Work Phone: [facility] Work Phone: [phone]gjf COVID-19 Vaccine 100 MCG/0.5ML Intramuscular SuspensionBryan P Kuns Work Phone: [facility] Work Phone: [phone]gwanprss polysaccharide vaccine, 23 valentBryan Gaels Other [facility] [employer] Other 09-108675-07-1682Dpuxyytu trivalent influenza vaccine, adjuvanted, preservative freeBryan P Kuns Work Phone: [facility] Work Phone: [phone]wsqt, seasonal, injectableBryan Kuns Other [employer] Other 09-090035-70-6522xeemsdyqf virus vaccine, unspecified formulationBryan P Kuns Work Phone: [facility] Work Phone: [phone]wfyradhh, seasonal, injectableBryan Kuns Other [employer] Other 11-885002-96-6854gheshz vaccine recombinantBryan Kuns Other [employer] Other 10-270889-23-7645oikynboni, high dose seasonal, preservative-freeBryan P Kuns Work Phone: [facility] Work Phone: [phone], seasonal, injectableBryan Kuns Other [employer] Other 08862953-84-1203rhbdip vaccine recombinantBryan Kuns Other [employer] Other 12862260-16-0693xtkefls toxoid, reduced diphtheria toxoid, and acellular pertussis vaccine, adsorbedBryan Kuns Other [employer] Other 10986105-25-0348Eklurvom trivalent influenza vaccine, adjuvanted, preservative freeShy Wolf MD Work Phone: [facility] Work Phone: [phone]uaedme virus vaccine, unspecified formulationBryan P Kuns Work Phone: [facility] Work Phone: [phone]jkar virus vaccine, unspecified formulationBryan P Kuns Work Phone: [facility] Work Phone: [phone]fezcn trivalent influenza vaccine, adjuvanted, preservative freeBryan P Kuns Work Phone: [facility] Work Phone: [phone]tydtaocms conjugate vaccine, 13 valent Shy Wolf MD Work Phone: [facility] Work Phone: [phone]nbvdkwbpt conjugate vaccine, 13 valent Suhas Gaels Other [facility] [employer] Other 10-863240-49-7352Wtbbnctp trivalent influenza vaccine, adjuvanted, preservative freeCarteran P Gaels Work Phone: [facility] Work Phone: [phone]bpirnjgs virus vaccine, unspecified formulationBryan P Kuns Work Phone: [facility] Work Phone: [phone]dqbldspuupg conjugate vaccine, 13 valent Suhas Dalton Garrett Work Phone: [facility] Work Phone: [phone]rcqdtd, injectable, quadrivalent, contains preservativeBryan P Kuns Work Phone: [facility] Work Phone: [phone]miaeuykv virus vaccine, unspecified formulationBryan P Kuns Work Phone: [facility] Work Phone: [phone]zjvwrkdl, seasonal, injectable, preservative freeCarteran P Kuns Work Phone: [facility] Work Phone: [phone]yadsolcr virus vaccine, whole virusCarteran P Gaels Work Phone: [facility] Work Phone: [phone]czdvmmsw, seasonal, injectableBryan P Kuns Work Phone: [facility] Work Phone: [phone]dzesorrb virus vaccine, unspecified formulationCarteran P Kuns Work Phone: [facility] Work Phone: [phone]gmpzkfsp, injectable, quadrivalent, contains preservativeBryan Kuns Other [employer] Other 01107590-16-2882hoobwlfsi virus vaccine, unspecified formulationBryan P Kuns Work Phone: [facility] Work Phone: [phone]zpzbqb virus vaccine, unspecified formulationBryan P Kuns Work Phone: [facility] Work Phone: [phone]mjcvlt virus vaccine, unspecified formulationBryan P Kuns Work Phone: [facility] Work Phone: [phone] [phone]gk rrgeiizds-L0E1-83, preservative-free, injectableBryan P Kuns Work Phone: [facility] Work Phone: [phone]dnetoo virus vaccineBryan P Kuns Work Phone: [facility] Work Phone: [phone]ykubogqga polysaccharide vaccine, 23 valentBryan P Kuns Work Phone: [facility] Work Phone: Payers DatePayer CategoryPayerPolicy [place]09-14-1214Duoq-aam12-24-8279Bpolzzj Care (Private)[facility] .[id number] Private Health [id number]0232-40-2041 [id number].3.812006.50574-86-4461Bqdbiuv32-39-6387 [id number] 2..1.498202.43520136-47-8979Krlwrld Health Insurance [id number] 2..1.31345[id number] 2..1.457882.3.57[id number] 2..1.914532.3.57[id number] 2..1.727538.3.57[id number] 2..1.798523.3.57[id number] 2..1.150653.3.57[id number] 2.0.1.367084.3.57[id number] 2.0.1.561825.3.57[id number] 2.0.1.944555.3.57[id number] 2.0.1.249837.3.57[id number] 2.16.840.1.393560.3.57[id number] 2.16.840.1.410753.3.57[id number] 2.16.840.1.7[id number] 2.16.840.1.514934.3.579.2.531 [id number] 2.16.840.1.4[id number] 2.16.840.1.9[id number] 2.16.840.1.497608.3.579.2.531 Social History DateTypeDetailFacilityUnknown if ever smokedProvidence St. [facility] Safe[facility] Other Start: 06-19-2023 End: 00-41-1727Pbl Assigned At BirthNoheartland behavioral health services [employer] Other Start: 06-19-2023 End: 08-38-2628Vezvzxfv useCaffeine useDoctors Hospital Work Phone: Start: 59-49-9458Vbcievp smoking status NHISNever smoked tobaccoUnPremier Health Miami Valley Hospital Work Phone: Start: 38-44-8879Zvtrzxc use and exposureSmokeless tobacco non-userUnPremier Health Miami Valley Hospital Work Phone: Start: 76-71-7967Wyr Assigned At BirthNot on file [facility] Work Phone: Start: 06-09-2023 End: 92-91-6350Xxspatmh to SARS-CoV-2 (event)Not sureUnPremier Health Miami Valley HospitalStart: 04-16-2024 End: 44-31-2790Iitlrvgcp beverage intakeCurrent drinker of alcohol (finding) [facility] Work Phone: Start: 69-04-5548JfrNsoemiBzyenebxxsWayne Hospital Clinical Notes 02-15-2015 to 01-14-2025 Note Date & GyxkYzbsMrrxqvvk23-32-5933 History of Present illness Narrative* Shy Wolf [...] signing my name below, I, RichelleChema Fuentes LPNibalisno attest that this documentation has been prepared [...] exam, discussion and plan. documented in this encounterAs[facility] Work Phone: 1(983) 643-279108-08-2025 Instructions* Patient Instructions* Richelle Frey LPN - [...] through Care Everywhere. * Heart Healthy Diet (Sri [place]ankan) documented in this encounterAshtabula [facility] Center Work Phone: [phone]) 189-285307-01-2025 History of Present illness Narrative* Reuben Burns [...] in patient record. Reuben Burns MSN, JENNYFER, PMHNP-[facility] [place], [place] Please excuse any errors in grammar or translation related to this dictation. Voice recognition software was utilized to prepare this document. documented in this [facility] Work Phone: 1(893) 567-957307-01-2025 Instructions* Patient Instructions* JENNYFER Garsia - 12/07/2024 [...] Dr. Wolf as scheduled documented in this encounterUnPremier Health Miami Valley Hospital Work Phone: 1(679) 107-752707-01-2025 Miscellaneous Notes* Addendum Note - JENNYFER Garsia - 12/07/2024 3:00 PM EDTAddended by: REUBEN BURNS on: 12/08/2024 02:08 PM Modules accepted: Orders documented in this encounterUnPremier Health Miami Valley Hospital Work Phone: 1(995) 472-449107-01-2025 Note* Addendum Note - ARGELIA Garsia CNP - 12/07/2024 3:00 PM EDTAddended by: REUBEN BURNS on: 12/08/2024 02:08 PM Modules accepted: Orders [facility] Work Phone: 1(545) 766-158911-08-2024 History of Present illness Narrative* Shy Wolf [...] this [facility] Work Phone: 1(666) 360-800311-08-2024 Instructions* Patient Instructions* Sherin Mendez LPN - [...] this [facility] Work Phone: 1(747) 908-822902-09-2024 Evaluation note* Encounter Date Diagnosis Assessment Notes Treatment Notes Treatment Clinical Notes Jul, PMR (polymyalgia rheumatica) (IC D-10 - M35.3) [facility] Other 02-06-2024 Evaluation note* Encounter Date Diagnosis Assessment Notes Treatment Notes Treatment Clinical Notes Jul, PMR (polymyalgia rheumatica) (IC D-10 - M35.3) [facility] Other 02-01-2024 Evaluation note* Encounter Date Diagnosis Assessment Notes Treatment Notes Treatment Clinical Notes Jul, Hypothyroidism (ICD-10 - E03.9) [facility] Other 01-29-2024 Evaluation note* Encounter Date Diagnosis Assessment Notes Treatment Notes Treatment Clinical Notes Jun, Hypothyroidism (ICD-10 - E03.9) Jun,Hyperthyroidism (ICD-10 - E05.90) [facility] Other 01-26-2024 Evaluation note* Encounter Date Diagnosis [...] requires sooner she is welcome to call. [facility] Other 01-11-2024 Evaluation note* Encounter Date Diagnosis Assessment Notes Treatment Notes Treatment Clinical Notes Jun, PMR (polymyalgia rheumatica) ( D-10 - M35.3) [facility] Other 01-11-2024 History of Present illness Narrative* [...] is being tapered gradually Shy Wolf MD, [facility] Review of Systems All other systems reviewed [...] of Shy Wolf MD. documented [facility] encounter[facility] Work Phone: 1(108) 486-730401-11-2024 Instructions* Patient Instructions* Yevgeniy Cortez MA - [...] this encounterAs[facility] Work Phone: 1(577) 247-123412-22-2023 Evaluation note* Encounter Date Diagnosis Assessment Notes [...] recommend the patient get the RSV vaccine. [facility] Other 12-20-2023 Evaluation note* Encounter Date Diagnosis Assessment Notes Treatment Notes Treatment Clinical Notes May, Hypertension (ICD-10 - I10) May,Hypothyroidism (ICD-10 - E03.9) [facility] Other 11-10-2023 Evaluation note* Encounter Date Diagnosis Assessment Notes Treatment Notes Treatment Clinical Notes Apr, PMR (polymyalgia rheumatica) (IC D-10 - M35.3) [facility] Other 09-22-2023 Evaluation note* Encounter Date Diagnosis Assessment Notes Treatment Notes Treatment Clinical Notes Feb, PMR (polymyalgia rheumatica) (IC D-10 - M35.3) She was encouraged to take 2.5mg daily. Patient is agreeable. Feb,Hypertension (ICD-10 - I10) Blood pressure is satisfactory, she is to follow with cardiology as scheduled. [facility] Other 08-21-2023 Evaluation note* Encounter Date Diagnosis Assessment Notes Treatment Notes Treatment Clinical Notes Jan, Hypertension (ICD-10 - I10) [facility] Other 06-30-2023 Evaluation note* Encounter Date Diagnosis [...] very [facility] She will see Dr. Wolf in three weeks therefore was advised to make sure she discusses the swelling with him and see what he would like to do. Patient is agreeable. [facility] Other 04-14-2023 Evaluation note* Encounter Date Diagnosis [...] tablets daily. We will continue to monitor. [facility] Other 03-08-2023 Evaluation note* Encounter Date Diagnosis Assessment Notes Treatment Notes Treatment Clinical Notes Aug, PMR (polymyalgia rheumatica) (IC D-10 - M35.3) [facility] Other 02-13-2023 Evaluation note* Encounter Date Diagnosis [...] states she has an upcoming appointment with stock holder and she will discuss making medication changes at that time. [facility] Other 11-09-2022 Evaluation note* Encounter Date Diagnosis [...] she can cut Apr,Hyperlipidemia (ICD-10 - E78.5) [facility] Other 11-02-2022 Evaluation note* Encounter Date Diagnosis Assessment Notes Treatment Notes Treatment Clinical Notes Apr, PMR (polymyalgia rheumatica) (IC D-10 - M35.3) [facility] Other 10-26-2022 Evaluation note* Encounter Date Diagnosis Assessment Notes Treatment Notes Treatment Clinical Notes Mar, Lumbar back pain (ICD-10 - M54.5 0) [facility] Other 09-20-2022 Evaluation note* Encounter Date Diagnosis Assessment Notes Treatment Notes Treatment Clinical Notes Feb, Elevated liver function tests (I CD-10 - R79.89) [facility] Other 09-16-2022 Evaluation note* Encounter Date Diagnosis Assessment Notes Treatment Notes Treatment Clinical Notes Feb, Acute pain of left shoulder (ICD -10 - M25.512) [facility] report reviewed from 02/20/22 . The [...] pain (ICD-10 - R10.13) The patient advised [place] could be causing her GI upset , [...] month [place] at her next office visit. [facility] Other 09-08-2022 Evaluation note* Encounter Date Diagnosis [...] (ICD-10 - M85.80) Noted on Lumbar x-ray. [facility] Other 08-05-2022 Evaluation note* Encounter Date Diagnosis Assessment Notes Treatment Notes Treatment Clinical Notes Jan, COVID-19 (ICD-10 - U07.1) [facility] Other 08-05-2022 Evaluation note* Encounter Date Diagnosis Assessment Notes Treatment Notes Treatment Clinical Notes Jan, Cough (ICD-10 - R05.9) In house covid test is positive. Treatment plan discussed in TE. [facility] Other 07-14-2022 Evaluation note* Encounter Date Diagnosis Assessment Notes Treatment Notes Treatment Clinical Notes Dec, PMR (polymyalgia rheumatica) (IC D-10 - M35.3) [facility] Other 05-27-2022 Evaluation note* Encounter Date Diagnosis Assessment Notes Treatment Notes Treatment Clinical Notes October, PMR (polymyalgia rheumatica) (IC D-10 - M35.3) [facility] Other 04-25-2022 Evaluation note* Encounter Date Diagnosis [...] The patient encourged to continue following with stock holder annually in December as scheduled. I did forward a copy of most current blood work results . [facility] Other 04-04-2022 Evaluation note* Encounter Date Diagnosis Assessment Notes Treatment Notes Treatment Clinical Notes Sep, PMR (polymyalgia rheumatica) (IC D-10 - M35.3) Sep,Hypertension (ICD-10 - I10) [facility] Other 02-24-2022 Evaluation note* Encounter Date Diagnosis [...] if needed. We will continue to montior. [facility] Other 02-16-2022 Evaluation note* Encounter Date Diagnosis Assessment Notes Treatment Notes Treatment Clinical Notes Jul, PMR (polymyalgia rheumatica) (IC D-10 - M35.3) [facility] Other 11-30-2021 Evaluation note* Encounter Date Diagnosis Assessment Notes Treatment Notes Treatment Clinical Notes Apr, PMR (polymyalgia rheumatica) (IC D-10 - M35.3) [facility] Other 11-18-2021 Evaluation note* Encounter Date Diagnosis [...] Apr,Hypothyroidism (ICD-10 - E03.9) Blood work ordered. [facility] Other [id number] History general Narrative - Reported* Type Description Date Medical History [facility] Yvxpmgr2694, 02-15-15-mammogram-negativeMedical History 01/20125314-dpxucgwqbmx-txnems, repeat in 3 yrsMedical Mycjsmp90/2017- colonoscopy- normalMedical Historyf/u with cardiology NOHCMedical HistoryECHO 09/2016Surgical HistoryAppendectomySurgical HistoryGallbladder RemovalSurgical HistoryOvarian Cyst RemovalSurgical HistoryCoccyx repairSurgical HistoryCataracts Bilateral EyesSurgical Historythyroidectomy Dr. Forbes10/14/2019Hospitalization History Childbirth m3Lwhlvzubytzuqqa HistorySee Above [facility] Other Evaluation noteNo InformationNort480 [employer] Other Evaluation note* Diagnosis Aortic valve stenosis, [...] valve disease unspecified Procedures Transthoracic Echo Complete ME ECHO TTHRC R-T 2D W/WOM-MODE COMPL SPEC&COLR D Shy Wolf MD [address] [facility] 2, [address] [address] Phone: tel: fax: Referral IDStatusReasonStart DateExpiration DateVisits RequestedVisits [id number] Perform Procedure [facility] Work Phone: Chief [...] being tapered gradually * Shy Wolf MD, [facility] * LAVONNE VILLATORO is being seen [...] PMR (polymyalgia rhe umatica) (M35.3) Referral Organization [facility] Family Medicin e [place] Referring Provider First Name Suhas Referring Provider Last Name Ugo Referring Provider Specialty Family Prac sukhjinder Referred Organization [facility] Referred Address [address] [place] [place], [place],[address] Referred Provider Specialty Rheumatology Referral Priority Routine [...] W/WOM-MODE COMPL SPEC&COLR D Shy Wolf MD [address] [place] [address] 2, [place] [place] [address] Referral IDStatusReasonStgenoa DateExpiration DateVisits RequestedVisits [id number] Review Perform Procedure [id number] / ProceduresReferred By ContactReferred To ContactCardiology Diagnoses Aortic valve stenosis, etiology of cardiac valve disease unspecified Procedures Follow Up In Cardiology Shy Wolf MD [address] [place] [address] 2, [address] [address] Shy Wolf MD [address] [facility] 2, [address] [address] Ref[facility]Status[facility] DateExpiration DateVisits RequestedVisits [id number]/11/20241/10/202511 Additional Source Comments REASON FOR VISIT (unrecogniz ed section and content) ReasonCommentsFollow-up9 month, echocardiogram resultsSpecialtyDiagnoses / ProceduresReferred By ContactReferred To ContactCardiology Diagnoses Aortic valve stenosis, etiology of cardiac valve disease unspecified Procedures Follow Up In Cardiology Shy Wolf MD [address] [place] [address], [address] [address] Phone: tel: fax: Shy Wolf MD [address] [place] [address], [place] [id number] Phone: tel: fax: Referral IDStatusReasonStart DateExpiration DateVisits RequestedVisits [id number]/8/202411/8/639230LelpncJjkxxrbwTnbsco-hq5dFrhujq CommentsFollow-ar4bQdgucsqq IDStatusReasonStart DateExpiration DateVisits RequestedVisits [id number]/11/20241/[id number] Diagnoses / ProceduresReferred By ContactReferred To ContactCardiology Diagnoses Nonrheumatic aortic valve stenosis Procedures Transthoracic Echo (TTE) Complete ME ECHO TRANSTHORC R-T 2D W/WO M-MODE REC F-UP/LMTD ME DOP ECHOCARD COLOR FLOW VELOCITY MAPPING ME DOP ECHOCARD PULSE WAVE W/SPECTRAL F-UP/LMTD STD Shy Wolf MD [address] [place] [id number] Referral IDStatusReasonStart DateExpiration DateVisits RequestedVisits [id number] Perform Procedure /[id number]-lz ClearancePOC for spinal cord stimulator, scheduled 12.13.[address] Weston. INFORMATION SOURCE (unrecogn ized section and content) DATE CREATED AUTHOR 03/06/2022 [facility] DATE CREATED AUTHOR AUTHOR'S ORGANIZ ATION 12/25/2022 [facility] DATE CREATED AUTHOR AUTHOR'S ORGANIZ ATION 12/25/2022 [employer] DATE CREATED AUTHOR AUTHOR'S ORGANIZ ATION 03/03/2023 [facility] DATE CREATED AUTHOR AUTHOR'S ORGANIZ ATION 07/29/2024 [facility] DATE CREATED AUTHOR AUTHOR'S ORGANIZ ATION 12/25/2024 [facility] DATE CREATED AUTHOR AUTHOR'S ORGANIZ ATION 01/16/2025 [facility] DATE CREATED AUTHOR AUTHOR'S ORGANIZ ATION 02/23/2025 [facility] Teams (unrecognized sec tion and content) Team MemberRelationshipSpecialtyStart DateEnd Date Suhas Garrett DO PCP - General06/09/99Team MemberRelationshipSpecialtyStart DateEnd Date Suhas Garrett DO [address] [place] [address] PCP - [facility] Medicine01/30/24Team MemberRelationshipSpecialtyStart DateEnd Date Suhas Garrett DO [address] [place] [address] [facility] - [facility]/30/24Team MemberRelationshipSpecialtyStart DateEnd Date Suhas Garrett DO [address] [place] [address] PCP - GeneralFamily Medicine01/30/24Team MemberRelationshipSpecialtyStart DateEnd Date Suhas Garrett DO [address] [place] [address] PCP - GeneralFamily Medicine01/30/24Team MemberRelationshipSpecialtyStart DateEnd Date Suhas Garrett DO [address] [place] [address] PCP - GeneralFamily Medicine01/30/24 FOR RECORDS PERTAINING [...] BE BASED ON THE PRIMARY CLINICAL RECORDS. [facility] [employer] [facility]. provides no warranty or guarantee of the accuracy or completeness of information in this document.
--- OUTSIDE RECORDS SUMMARY | 2025-04-10 07:32 | XMS_ITS | Clinical Summary ---
Author Organization [facility] Address [address] [place] [address] Care Team Providers Care Roving Tester Laboratory Name Role Phone Suhas Arizmendi DO Unavailable Suhas Arizmendi DO Primary Care Provider [phone] Allergies Active AllergyReactionsCriticalityNoted DateCommentsDivalproex SodiumIntolerance 03/29/2005Phenytoin Sodium QbeazgyzLutg88/21/2005 Medications MedicationSigDispense QuantityRefillsLast FilledStart DateEnd DateStatus NORVASC 5 MG TAB Take one(1) tablet daily.Active DIOVAN HCT 160 MG-12.5 MG TAB twice a rsj298Active METOPROLOL SR 50 MG 24 HR TAB once a cag387Active SYNTHROID 100 MCG TAB Take one(1) tablet daily.Active CALCIUM ANTACID 500 MG CHEWABLE TAB Calcium with D 600mg once a axc572Active VIT V-P3-R63O25-WYHHI ACID-MAG OX 100 UNIT-2.05 MG TAB Vit e 400 IU every other qgo587Active ASPIRIN 81 MG TAB once a iog858Active Family History Medical HistoryRelationCommentsNoneMotherno family history of breast cancer RelationStatusCommentsMother Social History Tobacco UseTypesPacks/DayYears UsedDateSmoking Tobacco: Never Assessed CommentsUnknownSex and Gender InformationValueDate RecordedSex Assigned at Not on fileLegal TppIecosq33/02/2012 7:32 AM ESTGender IdentityNot on fileSexual OrientationNot on file Plan of Treatment Health MaintenanceDue DateLast DoneCommentsAnxiety Lgvzpnxsr35/04/1955Depression Tqzajbttq01/04/1955DTaP,Tdap,Td Vaccine (1 - Tdap)08/11/1955Diabetes Screening 1981Pneumococcal Vaccine: 50+ (1 of 1 - PCV)1986Shingrix Vaccine (1 of 2)1986Bone Density Ohpdjiviy53/04/2002RSV Vaccine (1 - 1-dose 75+ series)08/11/2011dvance Directive Splcrbdnbk05/01/2025ovid-19 Vaccine (1 - 2024-26 season)2025Influenza Vaccine (#1)20[address] [place] [address] Care Teams Team MemberRelationshipSpecialtyStart DateEnd Date Suhas Arizmendi DO [address] [place] [address] PCP - Generalmily Medicine07/23/23 Suhas Arizmendi DO [address] [place] [address] ReferringFasymmes hospital Medicine07/23/23
--- OUTSIDE RECORDS SUMMARY | 2025-04-10 07:32 | XMS_ITS | Clinical Summary ---
Author Organization [facility] Address [address] [place] [address] Phone Care Team Providers Care Liquor Tester Name Role Phone Suhas Arizmendi DO Primary Care Provider [phone] Allergies Active AllergyReactionsCriticalityNoted XfpxKwipyfnlUlkemfxyljsIzzrv17/27/2023 Eye pain PspywumsuioBbzmcEcmo17/27/1154AbfeuelwufLbxmt96/01/2025 Hair loss HydrocodoneGI VctmvMmmzar25/11/8370ObndtxrhaWcgsXrx94/27/2023Valproic Acid Ehuhakn7706/04/2023 Medications MedicationSigDispense QuantityRefillsLast FilledStart DateEnd DateStatus multivit-min/ferrous [...] Problems ProblemNoted DateDiagnosed DateBMI 27.0-27.9,adult04/16/2024Never smoked any xxhwaftqi32/11/2024ortic yyqzbflv42/27/2023arotid bruit06/04/2023White coat syndrome with diagnosis of tjsytvdstepm01/27/6115Mfxgbewhcycyim20/27/2023 Pdstbbonzwndnz43/27/2023Murmur, fzlbqag6006/04/2023MR (polymyalgia rheumatica) 06/04/2023 Encounters DateTypeDepartmentCare TnxeRgizprcnkbs38/08/2025 11:00 [address] [place] [address] Michel Wolf MD Nonrheumatic aortic valve stenosis (Primary Dx); 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; Hyperlipidemia, unspecified hyperlipidemia type; PMR (polymyalgia rheumatica) ([facility]); Hypothyroidism, unspecified type; BMI 27.0-27.9,adult; Never smoked any substance; Acecjwfnnb19/08/2025Travelfrom Last 3 Months Immunizations ImmunizationAdministration DatesNext DueFlu vaccine, trivalent, preservative free, HIGH-DOSE, age 65y+ (Fluzone)03/09/2019Flu vaccine, trivalent, preservative free, age 6 months and greater (Fluarix/Fluzone/Flulaval)04/05/2014 Influenza Whole03/09/2014Influenza, Seasonal, Quadrivalent, Pjjppzplzz72/25/2023 ,03/21/2022Influenza, Cdipbwwvvwv51/01/2018,04/09/2017,03/09/2016,03/09/2015, 03/09/2013,06/09/2011,06/09/2010,06/09/2009Influenza, injectable, quadrivalent 04/07/2015,04/14/2012Influenza, seasonal, heojivlisr18/01/2020,03/04/2019 Influenza, trivalent, uxskoxiiwq33/30/2024,03/06/2020,03/16/2018,03/28/2017, 04/01/2016Moderna COVID-19 vaccine, 12 years and older (50mcg/0.5mL)(Spikevax) 04/07/2024,04/02/2023Moderna COVID-19 vaccine, bivalent, blue cap/uribe label *Check age/dose*04/17/2022Novel kvewiolyr-X0S3-07, preservative-free05/30/2009 Pneumococcal conjugate vaccine, 13-valent (PREVNAR 13)05/24/2016,05/23/2016, [...] InformationValueDate RecordedSex Assigned at BirthNot on fileLegal QzyPwzpuf92/25/2022 8:57 AM ESTGender Identity Not on fileSexual OrientationNot on file Last Filed Vital Signs Vital SignReadingTime TakenCommentsBlood Kplqxxzo460/7808 11:07 AM EDT Dtvwj7130/08/2025 11:07 AM EDTTemperature--Respiratory Rate--Oxygen Saturation-- Inhaled Oxygen Concentration--Veemqb93 kg (150 lb)01/14/2025 11:07 AM EDTHeight 157.5 cm (5' 2 )01/14/2025 11:07 AM EDTBody Mass Index27.44001/14/2025 11:07 AM EDT Plan of Treatment DateTypeDepartmentCare Team (Latest Contact Info)Kidmddavpsp03/14/2026 9:[address] [facility] [address] [place] [id number] 01/26/2026 11:00 AM EDTOffice Visit [facility] [address] [facility] [address] [place] [id number] Michel Wolf MD [address] [facility] [address], [address] [place], [place] [phone] Health MaintenanceDue DateLast DoneCommentsLipid Panel1936TSH Level 1936Hepatitis A Vaccines (1 of 2 - Risk 2-dose series)08/11/1955Hepatitis B Vaccines (1 of 3 - Risk 3-dose series)1996Bone Density Scan02/19/2024 02/18/2022Influenza Vaccine (#1)51, 04/02/2023, 03/21/2022, Additional history existsCOVID-19 Vaccine ( season)2025 04/07/2024, 04/02/2023, 04/17/2022, Additional history existsMedicare Annual Wellness Visit (AWV)602/, 04/28/2020DTaP/Tdap/Td Vaccines (2 - Td or Tdap)Zoster IknxtgxbGmonshhjc59/26/2019, 02/04/2019, 10/19/2007RSV High Risk: (Elderly (60+) or Population)Completed 3Pneumococcal GbvllqrPnoarwlms28/15/2024, 04/28/2020, 05/24/2016, Additional history existsHIB VaccinesAged OutNo [...] DateEnd Date Suhas Arizmendi DO [address] [place] [address] [facility]01/30/24
--- OUTSIDE RECORDS SUMMARY | 2025-04-10 07:32 | XMS_ITS | Clinical Summary ---
Author Organization [facility] Healthcare Address [address] [facility] [place] [address] Care Team Providers Care Nut Feeder Name Role Phone Unavailable Primary Care Provider Unavailabl e Social History Tobacco UseTypesPacks/DayYears UsedDateSmoking Tobacco: Never Assessed CommentsUnknownSex and Gender InformationValueDate RecordedSex Assigned at Not on fileLegal WmcThjfdk04/15/2023 7:21 PM EDTGender IdentityNot on fileSexual OrientationNot on file Last Filed Vital Signs Vital SignReadingTime TakenCommentsBlood Pressure--Pulse--Temperature-- Respiratory Rate--Oxygen Saturation--Inhaled Oxygen Concentration--Pwoina68.5 kg (140 lb)04/21/2020 12:00 PM LQNRqjbwi783.5 cm (5' 2 )04/21/2020 12:00 PM ESTBody Mass Index25.6104/21/2020 12:00 PM EST Plan of Treatment [place] [address]
[2025-04-10 07:34] VITALS: BP 181/66; PULSE 61; TEMP 36.6; O2SAT 99; BMI 28.7
--- NOTE | 2025-04-10 07:39 | ED.GENADUL1 ---
HPI HPI - General Adult General Chief complaint: Back Pain/Injury Stated complaint: NUMBNESS, TINGLING LOWER EXTREMITY Time Seen by Provider: 04/10/25 07:19 Source: patient Mode of arrival: Wheelchair History of Present Illness HPI narrative: cc - numbness and tingling both legs Pt underwent surgery to implant a spinal cord stimulator on 04/04/25 Related Data Home Medications ?Medication ?Instructions ?Recorded ?Confirmed aspirin 81 mg capsule 81 mg PO DAILY 08/25/23 04/10/25 carvedilol 6.25 mg tablet 6.25 mg PO Q12H 08/25/23 04/10/25 levothyroxine 100 mcg tablet 100 mcg PO DAILY 08/25/23 04/10/25 acetaminophen 650 mg 1,300 mg PO Q12H PRN pain 11/29/24 04/10/25 tablet,extended release amlodipine 5 mg tablet 5 mg PO DAILY 11/29/24 04/10/25 losartan 100 1 tab PO DAILY 11/29/24 04/10/25 mg-hydrochlorothiazide 25 mg tablet multivitamin (Daily Multi-Vitamin 1 tab PO DAILY 11/29/24 04/10/25 tablet) gabapentin 300 mg capsule 300 mg PO Q8H 02/08/25 04/10/25 prednisone 2.5 mg tablet 2.5 mg PO DAILY 04/10/25 04/10/25 Previous Rx's ?Medication ?Instructions ?Recorded baclofen 10 mg tablet See Rx Instructions .Route 04/06/25 .COMPLEX PRN muscle spasm #90 tabs polyethylene glycol 3350 17 17 g PO DAILY 4 days #68 grams 04/09/25 gram/dose oral powder (Miralax) alprazolam 0.5 mg tablet (Xanax) 0.5 mg PO BID PRN anxiety #14 tabs 04/10/25 Allergies Allergy/AdvReac Type Severity Reaction Status Date / Time amoxicillin Allergy Mild Rash Verified 04/09/25 05:40 divalproex sodium (From Allergy Unknown hair loss Verified 04/09/25 05:40 Depakote) hydrocodone Allergy Unknown Rash Verified 04/09/25 05:40 phenytoin (From Dilantin) Allergy Unknown Rash Verified 04/09/25 05:40 alendronate sodium (From AdvReac eye pain Verified 04/09/25 05:40 Fosamax) Opioid HPI Opioid Management Most Recent Opioid Data: Last Pain Scale 7 10/27/25, 09:09 Last Pain Assessment 04/04/25, 09:09 [facility] Medical History 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 ?I10 - Essential (primary) hypertension (ICD-10) Lumbar stenosis with neurogenic claudication ?M48.062 - Spinal stenosis, lumbar region with neurogenic claudication (ICD-10) Back pain ?M54.9 - Dorsalgia, unspecified (ICD-10) Shoulder pain ?M25.519 - Pain in unspecified shoulder (ICD-10) Seizures (1987) ?R56.9 - Unspecified convulsions (ICD-10) Heartburn ?R12 - Heartburn (ICD-10) Cataract ?H26.9 - Unspecified cataract (ICD-10) Hepatic lesion ?K76.9 - Liver disease, unspecified (ICD-10) Insomnia ?G47.00 - Insomnia, unspecified (ICD-10) Lung density on x-ray ?J98.4 - Other disorders of lung (ICD-10) Multinodular thyroid ?E04.2 - Nontoxic multinodular goiter (ICD-10) Hypothyroidism (acquired) ?E03.9 - Hypothyroidism, unspecified (ICD-10) Hyperlipidemia ?E78.5 - Hyperlipidemia, unspecified (ICD-10) Aortic stenosis ?I35.0 - Nonrheumatic aortic (valve) stenosis (ICD-10) Polymyalgia rheumatica ?M35.3 - Polymyalgia rheumatica (ICD-10) Hyperthyroidism ?E05.90 - Thyrotoxicosis, unspecified without thyrotoxic crisis or storm (ICD-10) Heart murmur ?R01.1 - Cardiac murmur, unspecified (ICD-10) HTN (hypertension) ?I10 - Essential (primary) hypertension (ICD-10) Surgical History S/P epidural steroid injection ?Z92.241 - Personal history of systemic steroid therapy (ICD-10) History of cataract extraction with lens replacement H/O excision of mass ?Z98.890 - Other specified postprocedural states (ICD-10) H/O colonoscopy ?Z98.890 - Other specified postprocedural states (ICD-10) 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 - Postprocedural hypothyroidism (ICD-10) Hx of cholecystectomy ?Z90.49 - Acquired absence of other specified parts of digestive tract (ICD-10) History of ovarian cystectomy ?Z98.890 - Other specified postprocedural states (ICD-10) ?Z87.42 - Personal history of other diseases of the female genital tract (ICD-10) History of appendectomy ?Z90.49 - Acquired absence of other specified parts of digestive tract (ICD-10) Family History Other Family history of DVT Family history of aneurysm Family history of cancer Family history of diabetes mellitus Family history of heart disease Social History Within the past year, how often did you have a drink containing alcohol: monthly or less Smoking status: Never smoker Non-prescribed substance use: denies use Highest level of school completed/degree received: high school graduate Little interest or pleasure in doing things: not at all Feeling down, depressed, or hopeless: not at all Exam Narrative Exam Narrative: Nurses notes and vital signs reviewed and patient is not hypoxic. afebrile General: Very anxious. Skin: Warm, dry, no pallor noted. Eye: Pupils are equal, round and EOMI. No scleral icterus. Ears, Nose, Mouth, and Throat: Oral mucosa is moist Cardiovascular: Regular Rate and Rhythm without murmur, gallop or rub. Respiratory: No accessory muscle use or respiratory distress. Lungs are clear to auscultation, no wheezing, rales or rhonchi Back: Steri-Strips are in place and there is no erythema or drainage from the surgical site. No midline thoracic or lumbar vertebral tenderness. No CVA tenderness. Musculoskeletal: normal ROM, no calf or popliteal tenderness, no lower extremity edema/swelling GI: Abdomen is soft, non-distended. Normal bowel sounds. No tenderness to palpation. No rebound, guarding, or rigidity noted. Neurological: A&O x4. No cranial nerve dysfunction observed. No truncal ataxia. Moves both lower extremities with expected strength. Sensation intact in both lower extremities. Psychiatric: Cooperative and interactive. Normal mood and affect. Constitutional Vital Signs, click to edit/add: Last Vital Signs Temp 97.8 F 04/10/25 07:34 Pulse 61 04/10/25 07:34 Resp 18 04/10/25 07:34 BP 181/66 H 04/10/25 07:34 Pulse Ox 99 04/10/25 07:34 O2 Del Method Room Air 04/10/25 07:34 Course Vital Signs Vital signs: Vital Signs Temperature 97.8 F 04/10/25 07:34 Pulse Rate 61 04/10/25 07:34 Respiratory Rate 18 04/10/25 07:34 Blood Pressure 181/66 H 04/10/25 07:34 Pulse Oximetry 99 04/10/25 07:34 Oxygen Delivery Method Room Air 04/10/25 07:34 Temperature 97.8 F 04/10/25 07:34 Pulse Rate 61 04/10/25 07:34 Respiratory Rate 18 04/10/25 07:34 Blood Pressure 181/66 H 04/10/25 07:34 Pulse Oximetry 99 04/10/25 07:34 Oxygen Delivery Method Room Air 04/10/25 07:34 Medical Decision Making MDM Narrative Medical decision making narrative: Blood drawn and sent for testing. She is very anxious and was given Xanax 0.5 mg in the emergency department. Review of her pharmacy list shows that she has been on Xanax in the past. I was able to contact Dr. Gloria Weston, the surgeon who performed the spinal stimulator implantation. He told me that the symptoms that the patient is experiencing are normal for the first few weeks postoperatively. He says that he will have the patient come into the office tomorrow or the next day and the rep can come by to adjust the settings of her stimulator. He said that the staff from the office will call her and let her know about the date and time of her appointment. I met with the patient and gave her reassurance. She was discharged home with a prescription for additional Xanax to be taken up to twice a day as needed for anxiety. I also told her that she can use her walker at home if that gives her some peace of mind with regards to any tingling or other neurological symptoms that she may be experiencing in the legs. However I did let her know that if she were to experience loss of bowel or bladder, paralysis or loss of sensation in the groin or the lower extremities that she should immediately come to the ED for evaluation. Medical Records Medical records reviewed: Yes I reviewed the patient's medical records Lab Data Lab results reviewed: Yes I reviewed the patient's lab results Labs: Lab Results 04/10/25 Range/Units 08:11 WBC 7.5 (4.0-11.0) 10^3/uL RBC 3.78 L (4.20-5.40) 10^6/uL Hgb 12.7 (12.0-16.0) g/dL Hct 37.7 (36.0-48.0) % MCV 99.7 H (81.0-99.0) fL MCH 33.6 (26.7-34.0) pg MCHC 33.7 (29.9-35.2) g/dL RDW 13.3 (11.0-15.0) % Plt Count 269 (150-450) 10^3/uL MPV 10.3 (9.5-13.5) fL Neut % (Auto) 75.4 H (43.0-75.0) % Lymph % (Auto) 14.6 L (20.5-60.0) % Glynn % (Auto) 7.0 (1.7-12.0) % Eos % (Auto) 1.6 (0.9-7.0) % Baso % (Auto) 0.7 (0.2-2.0) % Neut # (Auto) 5.6 (1.4-6.5) 10^3/uL Lymph # (Auto) 1.1 L (1.2-3.8) 10^3/uL Glynn # (Auto) 0.5 (0.3-0.8) 10^3/uL Eos # (Auto) 0.1 (0.0-0.7) 10^3/uL Baso # (Auto) 0.1 (0.0-0.1) 10^3/uL Abs Immat Gran (auto) 0.05 H (0.00-0.03) 10^3/uL Imm/Tot Granulo (auto) 0.7 H (0.0-0.5) % Sodium 142 (136-145) mmol/L Potassium 3.7 (3.5-5.1) mmol/L Chloride 107 (98-107) mmol/L Carbon Dioxide 26.6 (21.0-32.0) mmol/L Anion Gap 12.1 BUN 20.0 H (7.0-18.0) mg/dL Creatinine 0.76 (0.55-1.02) mg/dL Est GFR ( Amer) >60 (>=60 mL/min/1.73m^2) Est GFR (Non-Af Amer) >60 (>=60 mL/min/1.73m^2) BUN/Creatinine Ratio 26.3 Glucose 104 (74-106) mg/dL Calcium 9.4 (8.5-10.1) mg/dL Total Bilirubin 0.8 (0.2-1.0) mg/dL AST 22 (15-37) U/L ALT 57 (14-59) U/L Alkaline Phosphatase 190 H (46-116) U/L Total Protein 6.4 (6.4-8.2) g/dL Albumin 3.1 L (3.4-5.0) g/dL Globulin 3.3 g/dL Albumin/Globulin Ratio 0.9 Discharge Plan Discharge Chief Complaint: Back Pain/Injury Clinical Impression: Anxiety, Paresthesia of both feet Patient Disposition: Home, Self-Care Time of Disposition Decision: 08:40 Prescriptions / Home Meds: New alprazolam [Xanax] 0.5 mg tablet 0.5 mg PO BID PRN (Reason: anxiety) Qty: 14 0RF No Action carvedilol 6.25 mg tablet 6.25 mg PO Q12H levothyroxine 100 mcg tablet 100 mcg PO DAILY aspirin 81 mg capsule 81 mg PO DAILY amlodipine 5 mg tablet 5 mg PO DAILY losartan-hydrochlorothiazide 100-25 mg tablet 1 tab PO DAILY multivitamin [Daily Multi-Vitamin] Tablet 1 tab PO DAILY acetaminophen 650 mg tablet extended release 1,300 mg PO Q12H PRN (Reason: pain) gabapentin 300 mg capsule 300 mg PO Q8H baclofen 10 mg tablet See Rx Instructions .ROUTE .COMPLEX PRN (Reason: muscle spasm) Qty: 90 2RF Rx Instructions: 1/2-1 TABLET PO TID PRN PAIN SPASM prednisone 2.5 mg tablet 2.5 mg PO DAILY polyethylene glycol 3350 [Miralax] 17 gram/dose powder 17 g PO DAILY 4 Days Qty: 68 0RF Print Language: Chilean Instructions: Paresthesia (ED), Anxiety (ED) Referrals: Gloria Weston MD [Physician, Pain Management] - 04/11/25 Referral Note: they will contact you and notify you of your appointment day and time. Suhas Arizmendi DO [Primary Care Provider] - 1 week
[2025-04-10] MEDS: ALPRAZOLAM 0.5 MG TABLET PO (08:12)
[2025-04-10 08:16] LABS: Hematocrit 37.7 % (36.0-48.0); Hemoglobin 12.7 g/dL (12.0-16.0); Immature Granulocytes Abs Auto 0.05 10^3/uL (0.00-0.03); Immature Granulocytes Pct Auto 0.7 % (0.0-0.5); Lymphocytes Absolute Auto 1.1 10^3/uL (1.2-3.8); Mean Corpuscular HGB Conc 33.7 g/dL (29.9-35.2); Mean Corpuscular Hemoglobin 33.6 pg (26.7-34.0); Mean Corpuscular Volume 99.7 fL (81.0-99.0); Platelet Count 269 10^3/uL (150-450); Red Blood Count 3.78 10^6/uL (4.20-5.40); White Blood Count 7.5 10^3/uL (4.0-11.0)
[2025-04-10 08:32] LABS: Alanine Aminotransferase 57 U/L (14-59); Albumin Globulin Ratio 0.9; Albumin Level 3.1 g/dL (3.4-5.0); Alkaline Phosphatase 190 U/L (46-116); Anion Gap 12.1; Aspartate Amino Transferase 22 U/L (15-37); Blood Urea Nitrogen 20.0 mg/dL (7.0-18.0); Calcium 9.4 mg/dL (8.5-10.1); Carbon Dioxide 26.6 mmol/L (21.0-32.0); Chloride 107 mmol/L (98-107); Estimated GFR (African America >60 (>=60 mL/min/1.73m^2); Estimated GFR (Non-African Ame >60 (>=60 mL/min/1.73m^2); Globulin 3.3 g/dL; Glucose 104 mg/dL (74-106); Potassium 3.7 mmol/L (3.5-5.1); Sodium 142 mmol/L (136-145); Total Protein 6.4 g/dL (6.4-8.2)
== END 2025-04-10 09:11 | disposition home or self-care (01) ==
PROVIDERS: Emergency Provider Emergency Medicine; PCP Family Medicine
DX: R20.2 Paresthesia of skin (principal); F41.9 Anxiety disorder, unspecified; Z98.890 Other specified postprocedural states
CPT/HCPCS: 36415; 80053; 85025; 99284

== ENCOUNTER 2025-04-18 14:08 | Outpatient (OUT) | payer MEDICARE, OTHER, SELFPAY ==
--- OUTSIDE RECORDS SUMMARY | 2025-04-18 14:11 | XMS_ITS | Clinical Summary ---
Author Organization [facility] Healthcare Address [address] [place] [address] Care Team Providers Care Sheet Sewer Name Role Phone Unavailable Primary Care Provider Unavailabl e Social History Tobacco UseTypesPacks/DayYears UsedDateSmoking Tobacco: Never Assessed CommentsUnknownSex and Gender InformationValueDate RecordedSex Assigned at Not on fileLegal OkkKcpilj78/15/2023 7:21 PM EDTGender IdentityNot on fileSexual OrientationNot on file Last Filed Vital Signs Vital SignReadingTime TakenCommentsBlood Pressure--Pulse--Temperature-- Respiratory Rate--Oxygen Saturation--Inhaled Oxygen Concentration--Xpbvrn86.5 kg (140 lb)04/21/2020 12:00 PM MNTWdlkfm361.5 cm (5' 2 )04/21/2020 12:00 PM ESTBody Mass Index25.6104/21/2020 12:00 PM EST Plan of Treatment [place] [phone]
--- OUTSIDE RECORDS SUMMARY | 2025-04-18 14:11 | XMS_ITS | Clinical Summary ---
Author Organization [facility] Address [address] 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 Name Role Phone Suhas Arizmendi DO Primary Care Provider [phone] Allergies Active AllergyReactionsCriticalityNoted TuvjLnggewhmTgvnnphllzyXgqft97/27/2023 Eye pain WxjdeywodmpJzgsdDuxc16/27/6350YdjqntypwpUjndw28/01/2025 Hair loss HydrocodoneGI WpumbVdvwlb29/11/0484NlwsohkvvDwjbShc27/27/2023Valproic Acid Ybcmdeb0406/04/2023 Medications MedicationSigDispense QuantityRefillsLast FilledStart DateEnd DateStatus multivit-min/ferrous [...] Problems ProblemNoted DateDiagnosed DateBMI 27.0-27.9,adult04/16/2024Never smoked any srrfdlisu10/11/2024ortic yeisdmxb72/27/2023arotid bruit06/04/2023White coat syndrome with diagnosis of fjgvkchgyony16/27/8237Moawcisfnkfaka79/27/2023 Jxwkwyfzkbnzaq79/27/2023Murmur, xwydwtx5606/04/2023MR (polymyalgia rheumatica) 06/04/2023 Immunizations ImmunizationAdministration DatesNext DueFlu vaccine, trivalent, preservative free, HIGH-DOSE, age 65y+ (Fluzone)03/09/2019Flu vaccine, trivalent, preservative free, age 6 months and greater (Fluarix/Fluzone/Flulaval)04/05/2014 Influenza Whole03/09/2014Influenza, Seasonal, Quadrivalent, Listakyluy48/25/2023 ,03/21/2022Influenza, Svxkpzfnqiz61/01/2018,04/09/2017,03/09/2016,03/09/2015, 03/09/2013,06/09/2011,06/09/2010,06/09/2009Influenza, injectable, quadrivalent 04/07/2015,04/14/2012Influenza, seasonal, iwnklledlr92/01/2020,03/04/2019 Influenza, trivalent, tumtgbfkoy88/30/2024,03/06/2020,03/16/2018,03/28/2017, 04/01/2016Moderna COVID-19 vaccine, 12 years and older (50mcg/0.5mL)(Spikevax) 04/07/2024,04/02/2023Moderna COVID-19 vaccine, bivalent, blue cap/uribe label *Check age/dose*04/17/2022Novel bsdbklhkn-O6R0-90, preservative-free05/30/2009 Pneumococcal conjugate vaccine, 13-valent (PREVNAR 13)05/24/2016,05/23/2016, [...] InformationValueDate RecordedSex Assigned at BirthNot on fileLegal IlhMegltv80/25/2022 8:57 AM ESTGender Identity Not on fileSexual OrientationNot on file Last Filed Vital Signs Vital SignReadingTime TakenCommentsBlood Ftxefqir732/7808 11:07 AM EDT Sfzrq2370/08/2025 11:07 AM EDTTemperature--Respiratory Rate--Oxygen Saturation-- Inhaled Oxygen Concentration--Ooarsg42 kg (150 lb)01/14/2025 11:07 AM EDTHeight 157.5 cm (5' 2 )01/14/2025 11:07 AM EDTBody Mass Index27.44001/14/2025 11:07 AM EDT Plan of Treatment DateTypeDepartmentCare Team (Latest Contact Info)Marpuatrxbg72/14/2026 9:45 [address] EDTApp[address] [phone] 01/26/2026 11:00 AM EDTOffice Visit [address] [phone] Michel Wolf MD [address] [facility] [address] [place] [address] Health MaintenanceDue DateLast DoneCommentsLipid Panel1936TSH Level 1936Hepatitis A Vaccines (1 of 2 - Risk 2-dose series)08/11/1955Hepatitis B Vaccines (1 of 3 - Risk 3-dose series)1996Bone Density Scan02/19/2024 02/18/2022Influenza Vaccine (#1)51, 04/02/2023, 03/21/2022, Additional history existsCOVID-19 Vaccine (2024- season)2025 04/07/2024, 04/02/2023, 04/17/2022, Additional history existsMedicare Annual Wellness Visit (AWV)602/, 04/28/2020DTaP/Tdap/Td Vaccines (2 - Td or Tdap)Zoster UogmyzdvNjbaadvlz08/26/2019, 02/04/2019, 10/19/2007RSV High Risk: (Elderly (60+) or Population)Completed 3Pneumococcal OwogighTtknveqxb58/15/2024, 04/28/2020, 05/24/2016, Additional history existsHIB VaccinesAged OutNo [...] DateEnd Date Suhas Arizmendi DO [address] [place] [address] PCP - GeneralFanyly Medicine01/30/24
--- OUTSIDE RECORDS SUMMARY | 2025-04-18 14:15 | XMS_ITS | CCD ---
Author Organization 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 Name Role Phone Suhas Garrett Unavailable Suhas [...] Provider Suhas Garrett DO Primary Care Provider [phone] Suhas Garrett Primary Care Unavailable Suhas Garrett Admitting Unavailable KunSuhas arellano Attending Unavailable KunSuhas arellano Attending Unavailable Suhas Garrett Primary Care Unavailable KunsSuhas Admitting Unavailable KunSuhas arellano Attending Unavailable Suhas Garrett Primary Care Unavailable KunsSuhas Admitting Unavailable KunsSuhas Attending Unavailable Suhas Garrett Primary Care Unavailable GaelsSuhas Admitting Unavailable Kuns Suhas TYLER Primary Care Provider MICHEL WOLF Referring Unavailable SUHAS GARRETT Primary [...] of OnsetReaction(s) Facility (20 sources)Alendronate; Translations: [Fosamax]Drug Bwotxes36-31-5572[facility] (20 sources)Amoxicillin; Translations: [amoxicillin]Drug Yhsfzao84-34-7216qmddg [place] [facility] Other (20 sources)Phenytoin; Translations: [Dilantin CAPS]Drug Cgscsxq25-29-4195Dnlk [place] [facility] Other (20 sources)Valproate; Translations: [Depakote ER TB24]Drug AllergyUnknowNew Wayside Emergency Hospital [facility] Other (1 source)AlendronateDrug AllergyThe [facility] Repository (1 source)AmoxicillinDrug AllergyFulton [facility] Repository (1 source)PhenytoinDrug AllergyFulton County Health Center Repository (1 source)ValproateDrug AllergyThe [facility] Repository (20 sources)Acetaminophen / HYDROcodoneDrug Allergyelevated liver enzymesLegacy Health Karaz Other (6 sources)AlendronateDrug Nhdhzpr61-27-3055DopzkjsSumma Health (8 sources)HYDROcodone; Translations: [HYDROCODONE]Drug Psicvvp78-58-6681QDJoint Township District [facility] Hospital Work Phone: (8 sources)Valproate; Translations: [VALPROIC ACID]Drug Lmhnbii68-63-6374TjgqtjeKettering Health Preble Work Phone: (1 source)AcetaminophenDrug Ylpohzq30-46-8551GoycotvadCleveland Clinic [facility] Repository (1 source)AlendronateDrug Tcykjou59-79-8532GjgisotliCleveland Clinic Euclid Hospital Repository (1 source)AmoxicillinDrug Qwgibyt05-66-6570EbmrznnvlCleveland Clinic [facility]ucl[facility] Hospital Repository (1 source)HYDROcodoneDrug Fwkmwhv80-54-4112HscxakphkCleveland Clinic [facility]ucl[facility] Hospital Repository (1 source)PhenytoinDrug Atgeflk61-75-5312RrmwhxoqnCleveland Clinic [facility]ucl[facility] Hospital Repository (1 source)ValproateDrug Ngoyoyk97-07-6961SilkczgkwCleveland Clinic [facility]uclid Hospital Repository (5 sources)Valproate; Translations: [DIVALPROEX]Drug Vqbdqgm15-02-3838DmjpnChildren's Hospital of Columbus Work Phone: Medications Current Medications MedicationDrug Class(es)DatesSig [...] mg oral tablet (20 sources)Nonsteroidal Anti-inflammatory DrugStart: 17-79-3444azwa 1 tablet by mouth twice daily at mealtime as neededIbuprofen 600 MG 1 tablet with food or milk as needed Orally Twice a day as needed with food Jan, ActiveStart: 60-62-9555jzmo 1 tablet by mouth three times daily at mealtime as needed Ibuprofen 600 MG 1 tablet with food or milk as needed Orally TID PRN with food Jan, Not-Takinglevothyroxine sodium 0.1 mg oral tablet (20 sources)l-ThyroxineStart: 14-44-4067kdyk 1 tablet by mouth once daily levothyroxine [...] ActivepredniSONE 10 mg oral tablet (20 sources)Start: 71-24-3779xpvd 1 tablet by mouth once dailypredniSONE (Deltasone) 10 mg tablet Take 1 tablet (10 mg) by mouth once daily. 12/09/2024 ActiveStart: 66-67-3458ndvk 2 tablets by mouth once dailypredniSONE 10 MG 2 tablets x 7 days, 1 tablet x 7 days, then 1/2 tablet or 5mg daily thereafter Orally as directed Jun, ActiveStart: 64-56-7055qvfb 1 tablet by mouth every twenty-four hourspredniSONE 20 MG 1 tablet Orally Once a day for 10 days Apr, ActiveStart: 74-38-0082kmcq 1 tablet by mouth every other day predniSONE 2.5 MG 1 tablet Orally alternating every other day with 5mg Nov, ActiveStart: 45-87-1163admo 1 tablet by mouth every twenty-four hours predniSONE 2.5 MG 1 tablet Orally Once a day Apr, ActiveStart: 76-70-0010rntu 1 tablet by mouth every twenty-four hourspredniSONE 10 MG 1 tablet Orally Once a day for 90 days Apr, ActiveStart: 68-33-7631zyay 1 tablet by mouth every twenty-four hourspredniSONE 20 MG 1 tablet Orally Once a day for 30 day(s) Apr, ActiveStart: 57-91-0924yrhcfdRJUP 20 MG 1 tablet with food or milk Orally 1 tab twice a day x 5 days , 1 tab every day x 5days for 10 days Feb, ActiveStart: 79-10-3157njwc 1 tablet by mouth at mealtime, then take 1 tablet by mouth twice daily, then take 1 tablet by mouth once dailypredniSONE 20 MG 1 tablet with food or milk Orally 1 tab twice a day x 5 days , 1 tab once a day X 5 days Jan, ActiveStart: 02-75-3322qunl 1 tablet by mouth every other daypredniSONE 5 MG 1 tablet Orally alternating every other day with 2.5mg Apr, ActiveStart: 02-22-2020 End: 31-09-0204yobuqnIYZD (Deltasone) 5 mg tablet Take 1 tablet (5 mg) by mouth once daily. Alternating 2.5 tab 11/02/2021 01/14/2025 Discontinued (Dose adjustment)Start: 71-39-8850csgr 1 tablet by mouth every twenty-four hours predniSONE 2.5 MG 1 tablet Orally Once a day Feb, ActiveStart: 01-71-6125iswy 1.5 tablets by mouth every twenty-four hourspredniSONE 5 MG 1.5 tablets Orally Once a day Feb, ActivetraMADol hydrochloride 50 mg oral tablet (5 sources)Opioid AgonistStart: 03-20-3086ochl 1 tablet by mouth every eight hourstraMADol HCl 50 MG 1 tablet as needed Orally tid Jun, ActiveStart: 37-11-9386wnqh 1 tablet by mouth every twenty-four hourstraMADol HCl 50 MG 1 tablet as needed Orally Once a day Jun, ActiveTylenol Arthritis Pain 650 MG (20 sources)Tylenol Arthritis Pain 650 MG as directed Orally Not-TakingTylenol Arthritis Pain 650 MG as directed Orally Active Completed/Discontinued Medications MedicationDrug Class(es)DatesSig (Normalized)Sig (Original)amLODIPine 10 mg oral tablet (20 sources)Dihydropyridine Calcium Channel BlockerStart: 33-24-9710bcqg 1 tablet by mouth every twenty-four hoursNorvasc 5 MG 1 tablet Orally Once a day for 90 day(s) May, ActiveStart: 06-03-2017 End: 41-07-6494uznj 1 tablet by mouth once dailyamLODIPine (Norvasc) 10 mg tablet Take 1 tablet (10 mg) by mouth once daily. 12/13/2021 12/07/2024 D iscontinued (Dose adjustment)calcium carbonate 1500 mg oral tablet (11 sources) End: 85-81-8815gekq 1 tablet by mouth once dailycalcium carbonate [...] 24-Dec-2022 DO ActiveFish Oils (4 sources) End: 41-50-9124zvdh 1 capsule by mouth once dailyomega-3 (Fish [...] Not-Takingmelatonin 5 mg oral tablet (20 sources)Start: 56-65-8628riej 1 tablet by mouth every twenty-four hours Melatonin 5 MG 1 tablet in the evening Orally Once a day Sep, Not-Taking/PRNmethylPREDNISolone (20 sources)CorticosteroidStart: 83-08-4577HZYM-MEDROL 41 - 125 mg Jan, 125 mgMulti Vitamin Oral Tablet (7 sources)take 1 tablet by mouth once dailyMulti Vitamin Oral Tablet TAKE 1 TABLET DAILY. Quantity: 0 Refills: 0 Ordered: 13-Dec-2021 DO ActiveOmega 3 500 CAPS (4 sources)[place] 3 500 CAPS TAKE 1 CAPSULE Daily Quantity: 0 Refills: 0 Ordered: 13-Dec-2021 DO Activeoxycodone HCl/acetaminophen (OXYCODONE-ACETAMINOPHEN ORAL) (2 sources)Start: 02-23-2024 End: 52-63-6415gkxwlimtj HCl/acetaminophen (OXYCODONE-ACETAMINOPHEN ORAL) Take by mouth. 02/23/2024 12/07/2024 Discontinued (Therapy completed)Start: 99-85-4177ggfwjcusx HCl/acetaminophen (OXYCODONE-ACETAMINOPHEN ORAL) Take by mouth. 02/23/2024 ActivetraZODone hydrochloride 50 mg oral tablet (16 sources)Serotonin Reuptake InhibitorStart: 78-79-8579ykkw 1 tablet by mouth every twenty-four hourstraZODone HCl 50 MG 1 tablet at bedtime as needed Orally Once a day prn Jul, Not-Taking/PRN Problems Active Problems Problem ClassificationProblemDateDocumented DateEpisodic/ChronicAbdominal pain (20 sources)Generalized abdominal pain; Translations: [Generalized abdominal pain]Onset: 02-22-2022 Resolved: 27-30-1575OpumthdbAdafkzlfgnufuz/social admission (20 sources)Advance directive discussed with patient; Translations: [Other specified counseling]EpisodicCoronary atherosclerosis and other heart disease (20 sources)Coronary arteriosclerosis; 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 tejon coronary artery without angina pectoris]Onset: 09-03-2023 ChronicDisorders of lipid metabolism (20 sources)Hyperlipidemia; Translations: [Hyperlipidemia, unspecified]Onset: 04-26-2021 Resolved: 19-71-3021YttxbgrNajjbagim hypertension (20 sources)Hypertensive disorder; Translations: [Essential (primary) hypertension]Onset: 09-10-2021 Resolved: 60-99-0930XznxvqaMvmub valve disorders (20 sources)Aortic valve stenosis; Translations: [Aortic valve disorders]Onset: 94-75-0675LekdggbKtpmpklbxjc deficiencies (1 source)Vitamin D deficiency, unspecified; Translations: [Vitamin D deficiency, unspecified]Onset: 74-53-5951SayvpafVifaqbzmksnw (1 source)Osteoporosis; Translations: [Age-related osteoporosis without current pathological fracture]ChronicOther aftercare (1 source)Other care home (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; Translations: [OTH PAYMENT SPECIALIST CURRENT DRUG THERAPY]Onset: 63-61-4247MbihvmssQyxff bone disease and musculoskeletal deformities (20 sources)Pain of left shoulder blade; Translations: [Other specified disorders of bone, shoulder]EpisodicOther bone disease and musculoskeletal deformities (20 sources)Osteopenia; Translations: [Other specified disorders of bone density and structure, multiple sites]EpisodicOther circulatory disease (20 sources)Cardiovascular symptoms; Translations: [Other specified symptoms and signs involving the circulatory and respiratory systems]EpisodicOther connective tissue disease (20 sources)Polymyalgia rheumatica; Translations: [Polymyalgia rheumatica]Onset: 026942-87-1191MhajbtxDxhey connective tissue disease (20 sources)Polymyalgia rheumatica; Translations: [Polymyalgia rheumatica]Onset: 04-26-2021 Resolved: 95-68-0318WdlwbvhFheqf connective tissue disease (1 source)Other muscle spasm; Translations: [OTHER MUSCLE SPASM]Onset: 84-03-5603QuemgaioFdztc liver diseases (20 sources)Disease of liver; Translations: [Liver disease, unspecified]Chronic Other lower respiratory disease (20 sources)Radiologic increased density of lung; Translations: [Other disorders of lung]EpisodicOther non-epithelial cancer of skin (20 sources)Basal cell carcinoma of skin; Translations: [Basal cell carcinoma of skin, unspecified]EpisodicOther non-traumatic joint disorders (6 sources)Pain in left shoulder; Translations: [PAIN IN LEFT SHOULDER]Onset: 02-20-2022 Resolved: 34-51-8741YlmnfytjIlbph non-traumatic joint disorders (20 sources)Shoulder pain; Translations: [Pain in left shoulder]EpisodicOther nutritional; endocrine; and metabolic disorders (14 sources)Overweight in adulthood with body mass index of 25 or more but less than 30; Translations: [Overweight]Onset: 411717-55-4286PpnmwhpnZpnxj nutritional; endocrine; and metabolic disorders (1 source)Overweight; Translations: [Overweight]12-51-1703KtexeojhQybyi nutritional; endocrine; and metabolic disorders (2 sources)Body mass index (BMI) 27.0-27.9, adult; Translations: [Body mass index (BMI) 27.0-27.9, adult]Onset: 38-10-4532BhfmyhsxWtxgm screening for suspected conditions (not mental disorders or infectious disease) (20 sources)Other specified abnormal findings of blood chemistry; Translations: [Elevated liver function tests]Onset: 02-26-2022 Resolved: 00-69-8005ZrkywlnaWnzkfxuj codes; unclassified (20 sources)Insomnia; Translations: [Insomnia, unspecified]EpisodicResidual codes; unclassified (20 sources)Family history of malignant neoplasm of gastrointestinal tract; Translations: [Family history of malignant neoplasm of digestive organs]Episodic Residual codes; unclassified (20 sources)Difficulty sleeping ; Translations: [Sleep disorder, unspecified] EpisodicResidual codes; unclassified (3 sources)Insomnia, unspecifiedOnset: 10-01-2021 Resolved: 29-87-7205KxailwfcEiitlfth codes; unclassified (9 sources)Never smoked any substance; Translations: [Other specified health status]Onset: 163407-44-9941MgjminmkXzxgybkg codes; unclassified (2 sources)Other specified health status; Translations: [Other specified health status]Onset: 97-95-8659RgozodeoOibjefcvjpp; intervertebral disc disorders; other back problems (13 sources)Low back pain; Translations: [Lumbar back pain]EpisodicSprains and strains (20 sources)Strain of muscle and/or tendon of lower leg; Translations: [Strain of unspecified muscle and tendonat ankle and foot level, left foot, subsequent encounter]EpisodicThyroid disorders (20 sources)Hypothyroidism; Translations: [Hypothyroidism, unspecified]Onset: 04-26-2021 Resolved: 94-59-8232Eiofvfm Past or Other Problems Problem ClassificationProblemDateDocumented DateEpisodic/ChronicConditions associated with dizziness or vertigo (2 sources)Dizziness and giddiness; Translations: [Dizziness and giddiness] Onset: 02-14-2022 Resolved: 52-97-7354YlwnlfaaBifno valve disorders (20 sources)Heart murmur; Translations: [Cardiac murmur, unspecified]Onset: 10-01-2021 Resolved: 62-55-6425FzfzoktlVucar acquired deformities (1 source)Spondylolisthesis, lumbar regionOnset: 02-14-2022 Resolved: 69-94-3245JapioppcArxuc bone disease and musculoskeletal deformities (1 source)Other specified disorders of bone density and structure, unspecified siteOnset: 02-14-2022 Resolved: 27-29-3532GcxfmutvXtqmd bone disease and musculoskeletal deformities (1 source)Other specified disorders of bone, shoulderOnset: 02-22-2022 Resolved: 55-47-2667JjrggnuaUwghb bone disease and musculoskeletal deformities (1 source)Other specified disorders of bone density and structure, multiple sitesOnset: 02-22-2022 Resolved: 65-56-8610HxuyinbzBixnq circulatory disease (20 sources)Carotid bruit; Translations: [Other symptoms involving cardiovascular system]Onset: 06-04-2023 Resolved: 299036-14-8515VbzpsvufTjnud circulatory disease (1 source)Other specified symptoms and signs involving the circulatory and respiratory systems; Translations:[Other specified symptoms and signs involving the circulatory and respiratory systems]Onset: 65-88-9773SxutvteuHgohg liver diseases (1 source)Abnormal levels of other serum enzymes; Translations: [Abnormal levels of other serum enzymes]Onset: 86-87-2623JpkyybcsXjbha nutritional; endocrine; and metabolic disorders (2 sources)Body mass index (BMI) 26.0-26.9, adult; Translations: [Body mass index (BMI) 26.0-26.9, adult]Onset: 05-32-6330XxxemaidIbrsz skin disorders (1 source)Localized swelling, mass and lump, headOnset: 04-26-2021 Resolved: 59-97-9167AglrrbxwTbtbhrbv codes; unclassified (1 source)Sleep disorder, unspecifiedOnset: 08-02-2021 Resolved: 21-10-5325JpzwrpvnKalradwn codes; unclassified (1 source)Asymptomatic menopausal stateOnset: 02-14-2022 Resolved: 44-87-3234SnwxslncRruvninxgkvg (7 sources)Never smoked tobacco; Translations: [Never smoker]Unclassified (1 source)Cough R05.9Onset: 01-11-2022 Resolved: 94-06-2508Uzvkgstvcwpk (3 sources)Lumbar back pain M54.50Onset: 02-14-2022 Resolved: 37-10-4205Aanrediimvri (1 source)History of COVID-19 Z86.16Onset: 02-14-2022 Resolved: 77-27-6658Efkuxprykbel (10 sources)Lumbar back pain; Translations: [Lumbar back pain]Unclassified (1 source)Vaccine counseling Z71.85Unclassified (6 sources)Onset: 06-19-2023 Resolved: Viral infection (20 sources)Disease caused by 2019-nCoV; Translations: [COVID-19]Onset: 01-11-2022 Resolved: 01-11-2022 Results Test NameValueInterpretationReference RangeFacilityTRANSTHORACIC ECHO (TTE) COMPLETEon 46-90-0650DLOTIQPRKCTPR ECHO (TTE) COMPLETENortHarris Regional Hospital [address], [address], [place] [address] TRANSTHORACIC ECHOCARDIOGRAM REPORT Patient Name: LAVONNE VILLATORO Reading Physician: [id number] Michel Wolf MD, [facility] Study Date: 12/21/2024 Ordering Provider: [id number] MICHEL WOLF MRN/PID: [id number] Fellow: Nurse: Date of /Age: 3 1935 / years Ruffler: Sheridan Lemus RDCS, T Gender Assigned at F Additional Staff: : Height: 157.48 cm Admit Date: Weight: 65.77 kg Admission Status: Outpatient BSA / BMI: 1.67 m2 / 26.52 Department Location: [facility] kg/m2 [place] Blood Pressure: 146 /68 mmHg Study Type: TRANSTHORACIC ECHO (TTE) COMPLETE Diagnosis/ICD: Nonrheumatic aortic (valve) stenosis-I35.0 Indication: HTN, Hyperlipidemia, 2/6 Systolic Murmur, Hypothyroid CPT Codes: Echo Complete w Full Doppler-42278 Study Detail: The following Echo studies were [...] AoV Area,Vmax: 0.85 cm (more content not included)...[facility] Transthoracicon 97-88-5188Prnzmv Valve Area by Continuity of Peak Velocity0.85 dm4NbrgdjtfgdOhio State [facility] Hospital Work Phone: [phone] Valve Area by Continuity of VTI0.9 cm2 [facility] Work Phone: [phone] mn lvwl77vyAnYyzzstskncThe [facility] Hospital Work Phone: [phone] pk ihtu48pqJvNplpsgfbnaThe [facility] Hospital Work Phone: [phone] pk vel3.27 m/[facility] Work Phone: [phone] vol index A/L43.4 ml/z8WghgolzgjbThe [facility] Hospital Work Phone: [phone] A4C EF76.9UnThe [facility] Hospital Work Phone: [phone] Biplane EF71 %[facility] Work Phone: [phone] EF68 %[facility] Work Phone: [phone] cmUnThe Christ Hospital Work Phone: [phone] diam1.89 cmUnThe [facility] Hospital Work Phone: [phone] avg E/e' ratio15.93UnThe [facility] Work Phone: [phone] E/A eeqdv5FqwoibgthmThe Christ Hospital Work Phone: [phone] free wall pk S'11.98 cm/[facility] Work Phone: [phone] Christ Hospital Work Phone: [phone] annular plane systolic excursion2.4 cm [facility] Work Phone: [address], [address] [place] [address] TRANSTHORACIC ECHOCARDIOGRAM REPORT Patient Name: LAVONNE Bahena Physician: [id number] Michel Wolf MD, [facility] Study Date: 12/21/2024 Ordering Provider: [id number] MICHEL WOLF MRN/PID: [id number] Fellow: Nurse: Date of /Age: 3 1935 / 89 years Ruffler: Sheridan Lemus RDCS, RVT Gender Assigned at F Additional Staff: : Height: 157.48 cm Admit Date: Weight: 65.77 kg Admission Status: Outpatient BSA / BMI: 1.67 m2 / 26.52 Department Location: [facility] Heart kg/m2 [place] Blood Pressure: 146 /68 mmHg Study Type: TRANSTHORACIC ECHO (TTE) COMPLETE Diagnosis/ICD: Nonrheumatic aortic (valve) stenosis-I35.0 Indication: HTN, Hyperlipidemia, 2/6 Systolic Murmur, Hypothyroid CPT Codes: Echo Complete w Full Doppler-37284 Study Detail: The following Echo studies were [...] 1.22 m/s (0.7-1.2 m/s (more content not included)...Michel Kenney MD - 12/21/2024 [facility] [address], [address], [place] [address] TRANSTHORACIC ECHOCARDIOGRAM REPORT Patient Name: LAVONNE VILLATORO Reading Physician: [id number] Michel Wolf MD, [facility] Study Date: 12/21/2024 Ordering Provider: [id number] MICHEL WOLF MRN/PID: [id number] Fellow: Nurse: Date of /Age: 3 1935 / 89 years Ruffler: Sheridan Lemus RDCS, RVT Gender Assigned at F Additional Staff: : Height: 157.48 cm Admit Date: Weight: 65.77 kg Admission Status: Outpatient BSA / BMI: 1.67 m2 / 26.52 Department Location: [facility] kg/m2 [place] Blood Pressure: 146 /68 mmHg Study Type: TRANSTHORACIC ECHO (TTE) COMPLETE Diagnosis/ICD: Nonrheumatic aortic (valve) stenosis-I35.0 Indication: HTN, Hyperlipidemia, 2/6 Systolic Murmur, Hypothyroid CPT Codes: Echo Complete w Full Doppler-96760 Study Detail: The following Echo studies were [...] cm (18-25cm) LVOT VTI: (more content not included)...[facility] Work Phone: UnThe [facility] Work Phone: Complete Blood Count Auto Diffon 37-95-6507Brecwqxie (Bld) [#/Vol]0.1 10*3/uLNormal0.0-0.2The [facility] Physician GroupComment on above:Performed By: #### [id number], CMP, TSH3, LIPID, CBC, T4F, ESR #### [facility] [address] [place] [address] USABasophils/100 WBC (Bld)1.1 %Normal.The [facility] Physician GroupComment on above:Performed By: #### [id number], CMP, TSH3, LIPID, CBC, T4F, ESR #### [place] [address] USAEosinophils (Bld) [#/Vol]0.1 10*3/uLNormal0.0-0.45The [facility] Physician GroupComment on above:Performed By: #### [id number], CMP, TSH3, LIPID, CBC, T4F, ESR #### [place] [address] USAEosinophils/100 WBC (Bld)2.2 %Normal.The [facility] Physician GroupComment on above:Performed By: #### [id number], CMP, TSH3, LIPID, CBC, T4F, ESR #### [place] [address] USAErythrocyte distribution width (RBC) [Ratio]13.5 %Normal 11.9-15.3The [facility] Physician GroupComment on above:Performed By: #### [id number], CMP, TSH3, LIPID, CBC, T4F, ESR #### [place] [address] USAHematocrit (Bld) [Volume fraction]37.9 %Nsfpae87.0-46.4The [facility] Physician GroupComment on above:Performed By: #### [id number], CMP, TSH3, LIPID, CBC, T4F, ESR #### [place] [address] USAHemoglobin (Bld) [Mass/Vol]12.9 g/xNVeurgi33.8-15.4The [facility] Physician GroupComment on above:Performed By: #### [id number], CMP, TSH3, LIPID, CBC, T4F, ESR #### [place] [address] USALymphocytes (Bld) [#/Vol]2.2 10*3/uLNormal1.00-4.8The [facility] Physician GroupComment on above:Performed By: #### [id number], CMP, TSH3, LIPID, CBC, T4F, ESR #### [place] [address] USALymphocytes/100 WBC (Bld)34.3 %Normal.The [facility] Physician GroupComment on above:Performed By: #### [id number], CMP, TSH3, LIPID, CBC, T4F, ESR #### [address]H (RBC) [Entitic mass]33.5 liKnlhff70.7-34.3The [facility] Physician GroupComment on above:Performed By: #### [id number], CMP, TSH3, LIPID, CBC, T4F, ESR #### [address]V (RBC) [Entitic vol]98.4 xOHineoh75-414Skf [facility] Physician GroupComment on above:Performed By: #### [id number], CMP, TSH3, LIPID, CBC, T4F, ESR #### [place] [address] USAMean Corpuscular HGB Conc34.1 g/oWQxhnin94.0-35.0The [facility] Physician GroupComment on above:Performed By: #### [id number], CMP, TSH3, LIPID, CBC, T4F, ESR #### [place] [address] USAMonocytes (Bld) [#/Vol]0.6 10*3/uLNormal0.0-0.8The [facility] Physician GroupComment on above:Performed By: #### [id number], CMP, TSH3, LIPID, CBC, T4F, ESR #### [place] [address] USAMonocytes/100 WBC (Bld)9.8 %Normal.The [facility] Physician GroupComment on above:Performed By: #### [id number], CMP, TSH3, LIPID, CBC, T4F, ESR #### [facility] [address] [place] [address] USANeutrophils (Bld) [#/Vol]3.4 10*3/uLNormal1.8-7.7The [facility] Physician GroupComment on above:Performed By: #### [id number], CMP, TSH3, LIPID, CBC, T4F, ESR #### [place] [address] USANeutrophils/100 WBC (Bld)52.6 %Normal.The [facility] Physician GroupComment on above:Performed By: #### [id number], CMP, TSH3, LIPID, CBC, T4F, ESR #### [place] [address] USANRBC%0.3 /100{WBC}Normal0-0.5The [facility] Comment on above:Performed By: #### [id number], CMP, TSH3, LIPID, CBC, T4F, ESR #### [place] [address] USAPlatelet mean volume (Bld) [Entitic vol]9.3 fLNormal 6.3-10.7The [facility] Physician GroupComment on above:Performed By: #### [id number], CMP, TSH3, LIPID, CBC, T4F, ESR #### [place] [address] USAPlatelets (Bld) [#/Vol]208 10*3/yTXokirr657-098Leb [facility] Physician GroupComment on above:Performed By: #### [id number], CMP, TSH3, LIPID, CBC, T4F, ESR #### [place] [address] USARBC (Bld) [#/Vol]3.85 10*6/uLNormal3.60-5.00The [facility] Physician GroupComment on above:Performed By: #### [id number], CMP, TSH3, LIPID, CBC, T4F, ESR #### [place] [id number] USAWBC (Bld) [#/Vol]6.6 10*3/uLNormal3.8-11.6The [facility] Physician GroupComment on above:Performed By: #### [id number], CMP, TSH3, LIPID, CBC, T4F, ESR #### [place] [address] USAComprehensive Metabolic Panelon 73-12-3926Vkmxwbm [Mass/Vol]3.7 g/dLNormal3.5-5.7The [facility] Physician GroupComment on above: Performed By: #### [id number], CMP, TSH3, LIPID, CBC, T4F, ESR #### [place] [address] USAAlbumin/Globulin [Mass ratio]1.9 {ratio}NormalThe [facility] Physician GroupComment on above:Performed By: #### [id number], CMP, TSH3, LIPID, CBC, T4F, ESR #### [place] [address] USAALP [Catalytic activity/Vol]62 U/DMtnzlh89-474Bzw [facility] Physician GroupComment on above:Performed By: #### [id number], CMP, TSH3, LIPID, CBC, T4F, ESR #### [place] [address] USAALT [Catalytic activity/Vol]21 U/LNormal7-52The [facility] Physician GroupComment on above:Performed By: #### [id number], CMP, TSH3, LIPID, CBC, T4F, ESR #### [place] [address] USAAnion gap [Moles/Vol]8.2 mmol/LNormal6.0-15.0The [facility] Physician GroupComment on above:Performed By: #### [id number], CMP, TSH3, LIPID, CBC, T4F, ESR #### [place] [address] USAAST [Catalytic activity/Vol]19 U/JKewvso03-41Xtr [facility] Physician GroupComment on above:Performed By: #### [id number], CMP, TSH3, LIPID, CBC, T4F, ESR #### [place] [address] USABilirubin [Mass/Vol]0.7 mg/dLNormal0.3-1.0The [facility] Physician GroupComment on above:Performed By: #### [id number], CMP, TSH3, LIPID, CBC, T4F, ESR #### [place] [address] USACalcium [Mass/Vol]9.7 mg/dLNormal8.6-10.3The [facility] Physician GroupComment on above:Performed By: #### [id number], CMP, TSH3, LIPID, CBC, T4F, ESR #### [place] [address] USAChloride [Moles/Vol]107 mmol/IWwumsv84-591Ncm [facility] Physician GroupComment on above:Performed By: #### [id number], CMP, TSH3, LIPID, CBC, T4F, ESR #### [place] [address] USACO2 [Moles/Vol]31.5 mmol/LHigh21.0-31.0The [facility] Physician GroupComment on above:Performed By: #### [id number], CMP, TSH3, LIPID, CBC, T4F, ESR #### [place] [address] USACreatinine [Mass/Vol]0.67 mg/dLNormal0.60-1.20The [facility] Physician GroupComment on above:Performed By: #### [id number], CMP, TSH3, LIPID, CBC, T4F, ESR #### [place] [address] USAGFR/1.73 sq M.predicted MDRD (S/P/Bld) [Vol rate/Area] mL/min/{1.73_m2}NormalThe [facility] Physician GroupComment on above:Performed By: #### [id number], CMP, TSH3, LIPID, CBC, T4F, ESR #### [place] [address] USAGlobulin (S) [Mass/Vol]1.9 g/dLNormalThe [facility] Physician GroupComment on above:Performed By: #### [id number], CMP, TSH3, LIPID, CBC, T4F, ESR #### [place] [address] USAGlucose [Mass/Vol]89 mg/cEVgylqt24-165Laa [facility]ician GroupComment on above:Result Comment: Random Glucose Reference Range is dependent on time and content of last meal. Glucose of more than 200 mg/dL in a nonstressed, ambulatory subject supports the diagnosis of Diabetes Mellitus. ADA recommended reference rangePerformed By: #### [id number], CMP, TSH3, LIPID, CBC, T4F, ESR #### [place] [address] USAPotassium [Moles/Vol]3.7 mmol/LNormal3.5-5.1The [facility] Physician GroupComment on above:Performed By: #### [id number], CMP, TSH3, LIPID, CBC, T4F, ESR #### [place] [address] USAProtein [Mass/Vol]5.6 g/dLLow6.4-8.9The [facility] Physician GroupComment on above:Performed By: #### [id number], CMP, TSH3, LIPID, CBC, T4F, ESR #### [place] [address] USASodium [Moles/Vol]143 mmol/OVttorb859-117Hvm [facility]ician GroupComment on above:Performed By: #### [id number], CMP, TSH3, LIPID, CBC, T4F, ESR #### [place] [address] USAUrea nitrogen [Mass/Vol]19 mg/dLNormal7-25The [facility] Physician GroupComment on above:Performed By: #### [id number], CMP, TSH3, LIPID, CBC, T4F, ESR #### [facility] [address] [place] [id number] USAErythrocyte Sedimentation Rateon 14-30-1685ZYJ (Bld) [Velocity]9 mm/hNormal0-29The [facility] Physician GroupComment on above:Result Comment: PERFORMED BY: [place] [address] PATHOLOGIST INSULATOR TESTER JASIEL HURTADO M.D.Performed By: #### [id number], CMP, TSH3, LIPID, CBC, T4F, ESR #### [place] [address] USAFree T4 (Free Thyroxine)on 07-26-5140Rxwp T4 [Mass/Vol] 0.74 ng/dLNormal0.61-1.12The [facility] Physician GroupComment on above:Performed By: #### LIPID, TSH3, CMP, CBC #### [place] [address] USALipid Panelon 56-53-6919Lgkrltvdfee [Mass/Vol]228 mg/dL Hkdz846-923Twk [facility] Physician GroupComment on above:Result Comment: Chol less than 200 mg/dl low risk Chol 201-239 mg/dl borderline risk Chol 240 mg/dl and greater high riskPerformed By: #### [id number], CMP, TSH3, LIPID, CBC, T4F, ESR #### [place] [address] USACholesterol in HDL [Mass/Vol]96 mg/uKDnuw70-06Sqc [facility] Physician GroupComment on above:Result Comment: HDL CHOL ATP-III CLASSIFICATION Cardiovascular Risk HDL > or equal to 60 mg/dL LOW HDL < 40 mg/dL HIGHPerformed By: #### [id number], CMP, TSH3, LIPID, CBC, T4F, ESR #### [place] [address] USACholesterol.total/Cholesterol in HDL [Mass ratio]2.4 {ratio}Normal<5.0The [facility] Physician GroupComment on above:Performed By: #### [id number], CMP, TSH3, LIPID, CBC, T4F, ESR #### [facility] [address] [place] [address] USALDL Cholesterol,Gbvcizkxbw505 mg/dLHigh0-100The [facility] Physician GroupComment on above:Result Comment: LDL ATP III CLASSIFICATION LDL less than 100 mg/dL Optimal LDL 100-129 mg/dL Near or above optimal LDL 130-159 mg/dL Borderline high LDL 160-189 mg/dL High LDL greater than 189 mg/dL Very highPerformed By: #### [id number], CMP, TSH3, LIPID, CBC, T4F, ESR #### [facility] [address] [place] [address] USATriglyceride w/Mhkxtv80 mg/dLNormal0-149The [facility] Physician GroupComment on above:Result Comment: TRIG ATP III CLASSIFICATION TRIG less than 150 mg/dL Normal TRIG 150-199 mg/dL Borderline high TRIG 200-500 mg/dL High TRIG greater than 500 mg/dL Very high Standard traceable to the Center for Disease Conrtrol and Prevention (CDC) test method.Performed By: #### [id number], CMP, TSH3, LIPID, CBC, T4F, ESR #### [facility] [address] [place] [address] USAVLDL QFQFEXFXTGE59 mg/dLNormalThe [facility] Physician GroupComment on above:Performed By: #### [id number], CMP, TSH3, LIPID, CBC, T4F, ESR #### [facility] [address] [place] [address] USAThyroid Stimulating Hormoneon 49-80-2915TZF Qn6.38 m[IU]/L High0.45-5.33The [facility] Physician GroupComment on above:Performed By: #### LIPID, TSH3, CMP, CBC #### [facility] [address] [place] [address] USAVitamin D 25 Hydroxy Totalon 61-69-9457Xewvhwp D 25 Hydroxy Total28.4 ng/fVIcv19-462Zjq [facility]ician GroupComment on above: Result Comment: VITAMIN D STATUS 25(OH)VITAMIN D RANGE (ng/mL) Deficient <20 Insufficient 20 to <30 Sufficient 30 to 100 Reference: Yolanda ARIAS,Nathan NC, Keshawn FRANCO, et al. Evaluation,treatment, and prevention of vitamin D deficiency; an Endocrine Society clinical practice guideline. JCEM. 2010; 96(7):1911-30. PERFORMED BY: [place] [address] PATHOLOGIST INSULATOR TESTER JASIEL HURTADO M.D.Performed By: #### LIPID, TSH3, CMP, CBC #### [place] [address] USAXR scapula LT*on 60-13-2939BM scapula LT*[facility] Main [place] [address] [place] [address] XRay Report Signed Patient: Lavonne Villatoro MR#: [id number] : 1935 Acct:[id number] Age/Sex: 88 / F ADM Date: 05/25/24 Loc: Room: Type: [facility] Attending Dr: Suhas Garrett DO Copies to: Suhas Garrett DO Ordering Provider: Suhas Garrett DO Date of Service: 05/25/24 XR/XR shoulder LT min 2V*: M25.519 - Pain in unspecified shoulder ([id number]) XR/XR scapula LT*: M25.519 - Pain in [...] Casandra Gómez M.D.05/25/2024 4:45 PM Dictation Location: [place] [address] Transcribed By: [facility] 05/25/241644 Dictated By: Casandra Gómez MD 05/25/241641 Signed By: 05/25/24 1645[facility] Physician GroupTRANSTHORACIC ECHO (TTE) COMPLETEon 19-96-5063HWGSMEVXDFGEN ECHO (TTE) COMPLETENo[address], [address] [place] [address] TRANSTHORACIC ECHOCARDIOGRAM REPORT Patient Name: LAVONNE VILLATORO Reading Physician: [id number] Michel Wolf MD, [facility] Study Date: 02/11/2024 Ordering Provider: [id number] MICHEL WOLF MRN/PID: [id number] Fellow: Nurse: Date of /Age: 3 1935 / 88 years Ruffler: LILIA Gender: F Additional Staff: Height: 157.48 cm Admit Date: Weight: 69.40 kg Admission Status: BSA / BMI: 1.71 m2 / 27.98 kg/m2 Department Location: [facility] Blood Pressure: 116 /76 mmHg Study Type: TRANSTHORACIC ECHO (TTE) COMPLETE Diagnosis/ICD: Nonrheumatic aortic (valve) stenosis-I35.0 Indication: HTN, Hyperlipidemia, 3/6 Systolic Murmur, Hypothryoid, Overweight CPT Codes: Echo Complete w Full Doppler-98163 Study Detail: The following Echo studies were [...] mmHg PIEDV: 2.23 m/s PADP: 22.9 mmHg [id number] Michel Wolf MD, FACC Electronical (more content not included)...[facility] BIon 69-75-8525CQ carotid doppler [facility] Main [place] [address] [place] [address] Ultrasound Report Signed Patient: Lavonne Villatoro MR#: [id number] : 1935 Acct:[id number] Age/Sex: 88 / F ADM Date: 10/14/23 [...] Hola Wynn M.D.10/15/2023 11:47 AM Dictation Location: [place] [address] Tech: Jackie Aguillon Transcribed By: KIRILL 10/15/23 1147 Dictated By: Hola Wynn MD 10/15/23 1145 Signed By: 10/15/23 1147[facility] Auto Diffon 14-30-8384Auqzfngcl (Bld) [#/Vol]0.0 10*3/uLNormal0.0-0.2The [facility] Physician GroupComment on above:Result Comment: PERFORMED BY: [place] [address] PATHOLOGIST INSULATOR TESTER JODY SOLANO M.D.Performed By: #### LIPID, TSH3, CMP, CBC #### [place] [address] USABasophils/100 WBC (Bld)0.7 %Normal.The [facility] Physician GroupComment on above:Performed By: #### LIPID, TSH3, CMP, CBC #### [place] [address] USAEosinophils (Bld) [#/Vol]0.1 10*3/uLNormal0.0-0.45The [facility] Physician GroupComment on above:Performed By: #### LIPID, TSH3, CMP, CBC #### [place] [address] USAEosinophils/100 WBC (Bld)1.6 %Normal.The [facility] Physician GroupComment on above:Performed By: #### LIPID, TSH3, CMP, CBC #### [place] [address] USAErythrocyte distribution width (RBC) [Ratio]14.8 %Normal 11.9-15.3The [facility] Physician GroupComment on above:Performed By: #### LIPID, TSH3, CMP, CBC #### [place] [address] USAHematocrit (Bld) [Volume fraction]39.9 %Uukftr41.0-46.4The [facility] Physician GroupComment on above:Performed By: #### LIPID, TSH3, CMP, CBC #### [place] [address] USAHemoglobin (Bld) [Mass/Vol]13.2 g/hYTtrgxu50.8-15.4The [facility] Physician GroupComment on above:Performed By: #### LIPID, TSH3, CMP, CBC #### [place] [address] USALymphocytes (Bld) [#/Vol]2.6 10*3/uLNormal1.00-4.8The [facility] Physician GroupComment on above:Performed By: #### LIPID, TSH3, CMP, CBC #### [place] [address] USALymphocytes/100 WBC (Bld)43.5 %Normal.The [facility] Physician GroupComment on above:Performed By: #### LIPID, TSH3, CMP, CBC #### [place] [address] USAMCH (RBC) [Entitic mass]33.2 zhClibbi62.7-34.3The [facility] Physician GroupComment on above:Performed By: #### LIPID, TSH3, CMP, CBC #### [place] [address] USAV (RBC) [Entitic vol]100.5 rBWrda77-147Jov [facility] Physician GroupComment on above:Performed By: #### LIPID, TSH3, CMP, CBC #### [place] [address] USAMean Corpuscular HGB Conc33.0 g/pUDxrtvp45.0-35.0The [facility] Physician GroupComment on above:Performed By: #### LIPID, TSH3, CMP, CBC #### [place] [address] USAMonocytes (Bld) [#/Vol]0.6 10*3/uLNormal0.0-0.8The [facility] Physician GroupComment on above:Performed By: #### LIPID, TSH3, CMP, CBC #### [place] [address] USAMonocytes/100 WBC (Bld)9.7 %Normal.The [facility] Physician GroupComment on above:Performed By: #### LIPID, TSH3, CMP, CBC #### [place] [address] USANeutrophils (Bld) [#/Vol]2.7 10*3/uLNormal1.8-7.7The [facility] Physician GroupComment on above:Performed By: #### LIPID, TSH3, CMP, CBC #### [place] [address] USANeutrophils/100 WBC (Bld)44.5 %Normal.The [facility] Physician GroupComment on above:Performed By: #### LIPID, TSH3, CMP, CBC #### [place] [address] USANRBC%0.2 /100{WBC}Normal0-0.5The [facility] Comment on above:Performed By: #### LIPID, TSH3, CMP, CBC #### [place] [address] USAPlatelet mean volume (Bld) [Entitic vol]9.2 fLNormal 6.3-10.7The [facility] Physician GroupComment on above:Performed By: #### LIPID, TSH3, CMP, CBC #### [place] [address] USAPlatelets (Bld) [#/Vol]229 10*3/tWSiqnqr745-056Rrm [facility] Physician GroupComment on above:Performed By: #### LIPID, TSH3, CMP, CBC #### [place] [address] USARBC (Bld) [#/Vol]3.98 10*6/uLNormal3.60-5.00The [facility] Physician GroupComment on above:Performed By: #### LIPID, TSH3, CMP, CBC #### [facility] [address] [place] [address] USAWBC (Bld) [#/Vol]6.0 10*3/uLNormal3.8-11.6The [facility] Physician GroupComment on above:Performed By: #### LIPID, TSH3, CMP, CBC #### [place] [address] USAComprehensive Metabolic Panelon 34-93-4285Dorjnys [Mass/Vol]3.8 g/dLNormal3.5-5.7The [facility] Physician GroupComment on above: Performed By: #### LIPID, TSH3, CMP, CBC #### [place] [address] USAAlbumin/Globulin [Mass ratio]1.7 {ratio}NormalThe [facility] Physician GroupComment on above:Performed By: #### LIPID, TSH3, CMP, CBC #### [place] [address] USAALP [Catalytic activity/Vol]72 U/WSobdot98-592Vfn [facility] Physician GroupComment on above:Performed By: #### LIPID, TSH3, CMP, CBC #### [place] [address] USAALT [Catalytic activity/Vol]43 U/LNormal7-52The [facility] Physician GroupComment on above:Performed By: #### LIPID, TSH3, CMP, CBC #### [place] [address] USAAnion gap [Moles/Vol]8.9 mmol/LNormal6.0-15.0The [facility] Physician GroupComment on above:Performed By: #### LIPID, TSH3, CMP, CBC #### [place] [address] USAAST [Catalytic activity/Vol]23 U/GIaczmk04-45Tzj [facility] Physician GroupComment on above:Performed By: #### LIPID, TSH3, CMP, CBC #### [place] [address] USABilirubin [Mass/Vol]1.2 mg/dLHigh0.3-1.0The [facility] Physician GroupComment on above:Performed By: #### LIPID, TSH3, CMP, CBC #### [place] [address] USACalcium [Mass/Vol]9.5 mg/dLNormal8.6-10.3The [facility] Physician GroupComment on above:Performed By: #### LIPID, TSH3, CMP, CBC #### [facility] [address] [place] [address] USAChloride [Moles/Vol]107 mmol/KJsnbcy59-845Hrz [facility] Physician GroupComment on above:Performed By: #### LIPID, TSH3, CMP, CBC #### [place] [address] USACO2 [Moles/Vol]30.0 mmol/YVqystl85.0-31.0The [facility] Physician GroupComment on above:Performed By: #### LIPID, TSH3, CMP, CBC #### [place] [address] USACreatinine [Mass/Vol]0.76 mg/dLNormal0.60-1.20The [facility] Physician GroupComment on above:Performed By: #### LIPID, TSH3, CMP, CBC #### [place] [address] USAGFR/1.73 sq M.predicted MDRD (S/P/Bld) [Vol rate/Area] mL/min/{1.73_m2}NormalThe [facility] Physician GroupComment on above:Performed By: #### LIPID, TSH3, CMP, CBC #### [place] [address] USAGlobulin (S) [Mass/Vol]2.2 g/dLNormalThe [facility] Physician GroupComment on above:Performed By: #### LIPID, TSH3, CMP, CBC #### [place] [address] USAGlucose [Mass/Vol]79 mg/dRHrhtho76-502Bva [facility] Physician GroupComment on above:Result Comment: Random Glucose Reference Range is dependent on time and content of last meal. Glucose of more than 200 mg/dL in a nonstressed, ambulatory subject supports the diagnosis of Diabetes Mellitus. ADA recommended reference rangePerformed By: #### LIPID, TSH3, CMP, CBC #### [facility] [address] [place] [address] USAPotassium [Moles/Vol]3.9 mmol/LNormal3.5-5.1The [facility] Physician GroupComment on above:Performed By: #### LIPID, TSH3, CMP, CBC #### [facility] [address] [place] [address] USAProtein [Mass/Vol]6.0 g/dLLow6.4-8.9The [facility] Physician GroupComment on above:Performed By: #### LIPID, TSH3, CMP, CBC #### [facility] [address] [place] [address] USASodium [Moles/Vol]142 mmol/KLoadav971-855Fdu [facility] Physician GroupComment on above:Performed By: #### LIPID, TSH3, CMP, CBC #### [facility] [address] [place] [address] USAUrea nitrogen [Mass/Vol]22 mg/dLNormal7-25The [facility] Physician GroupComment on above:Performed By: #### LIPID, TSH3, CMP, CBC #### [place] [address] USALipid Panelon 64-81-4745Guhputkkcgm [Mass/Vol]243 mg/dL Czcv701-847Pcr [facility] Physician GroupComment on above:Result Comment: Chol less than 200 mg/dl low risk Chol 201-239 mg/dl borderline risk Chol 240 mg/dl and greater high riskPerformed By: #### LIPID, TSH3, CMP, CBC #### [place] [address] USACholesterol in HDL [Mass/Vol]98 mg/tKTlsa29-70Kqe [facility]ician GroupComment on above:Result Comment: HDL CHOL ATP-III CLASSIFICATION Cardiovascular Risk HDL > or equal to 60 mg/dL LOW HDL < 40 mg/dL HIGHPerformed By: #### LIPID, TSH3, CMP, CBC #### [facility] [address] [place] [address] USACholesterol.total/Cholesterol in HDL [Mass ratio]2.5 {ratio}Normal<5.0The [facility] Physician GroupComment on above:Performed By: #### LIPID, TSH3, CMP, CBC #### [facility] [address] [place] [address] USALDL Cholesterol,Hyrxkstzgs530 mg/dLHigh0-100The [facility] Physician GroupComment on above:Result Comment: LDL ATP III CLASSIFICATION LDL less than 100 mg/dL Optimal LDL 100-129 mg/dL Near or above optimal LDL 130-159 mg/dL Borderline high LDL 160-189 mg/dL High LDL greater than 189 mg/dL Very highPerformed By: #### LIPID, TSH3, CMP, CBC #### [place] [address] USATriglyceride w/Gjkkpp880 mg/dLNormal0-149The [facility] Physician GroupComment on above:Result Comment: TRIG ATP III CLASSIFICATION TRIG less than 150 mg/dL Normal TRIG 150-199 mg/dL Borderline high TRIG 200-500 mg/dL High TRIG greater than 500 mg/dL Very high Standard traceable to the Center for Disease Conrtrol and Prevention (CDC) test method.Performed By: #### LIPID, TSH3, CMP, CBC #### [place] [address] USAVLDL TAUNBTPCDJF42 mg/dLNormalThe [facility] Physician GroupComment on above:Performed By: #### LIPID, TSH3, CMP, CBC #### [place] [address] USAThyroid Stimulating Hormoneon 45-78-2260SST Qn4.01 m[IU]/L Normal0.45-5.33The [facility] Physician GroupComment on above:Result Comment: PERFORMED BY: [place] [address] PATHOLOGIST INSULATOR TESTER JODY SOLANO M.D.Performed By: #### LIPID, TSH3, CMP, CBC #### [facility] [address] [place] [address] USAComplete Blood Count Auto Diffon 54-08-3905Srnurysww (Bld) [#/Vol]0.709345942 10*3/uLNormal0.0-0.2 10*3/Primo Round Other Basophils/100 WBC (Bld)0.900 %. %Issuu Other Eosinophils (Bld) [#/Vol]0.375642984 10*3/uLNormal0.0- 0.45 10*3/[employer] Other Eosinophils/100 WBC (Bld)1.100 %. %[employer] Other Erythrocyte distribution width (RBC) [Ratio]14.000 % Fkgwhn77.9-15.3 %[employer] Other Hematocrit (Bld) [Volume fraction]37.700 %Puxvoc53.0- 46.4 %[employer] Other Hemoglobin (Bld) [Mass/Vol]12.871884 g/zZReqsbr74.8- 15.4 g/dLNoCuil Other Lymphocytes (Bld) [#/Vol]2.540718536 10*3/uLNormal 1.00-4.8 10*3/[employer] Other Lymphocytes/100 WBC (Bld)35.100 %. %[employer] Other MCH (RBC) [Entitic mass]33.3000 ooMfegcr39.7-34.3 pg [employer] Other MCV (RBC) [Entitic vol]99.7000 sJFwgjso25-886 fLIssuu Other Monocytes (Bld) [#/Vol]0.200596847 10*3/uLNormal0.0- 0.8 10*3/Primo [employer] Other Monocytes/100 WBC (Bld)10.000 %. %[employer] Other Neutrophils (Bld) [#/Vol]3.298891106 10*3/uLNormal1.8- 7.7 10*3/Prim[employer] Other Neutrophils/100 WBC (Bld)52.900 %. %[employer]uu Other Platelet mean volume (Bld) [Entitic vol]9.9000 fL Normal6.3-10.7 fLLenox Sidecar Other Platelets (Bld) [#/Vol]224 10*3/pKEydlgm156-376 10*3/Primo [employer] Other RBC (Bld) [#/Vol]3.78 10*6/uLNormal3.60-5.00[employer] Other WBC (Bld) [#/Vol]7.002349497 10*3/uLNormal3.8-11.6 10*3/Primo Round Other Complete Blood Count Auto Diff7.1 10*3/uLNormal3.8- 11.6 10*3/Primo [employer] Other Complete Blood Count Auto Diff33.4 g/mSVesdis36.0-35.0 g/dLIssuu Other Complete Blood Count Auto Diff0.1 /100{WBC}Normal0-0.5 /100{WBC}Issuu Other Comprehensive Metabolic Panelon 71-29-9744Fljrzwx [Mass/Vol]3.273279 g/dLNormal3.5-5.7 g/dLNoSyapse Sidecar Other Albumin/Globulin [Mass ratio]1.7 {ratio}Issuu Other ALP [Catalytic activity/Vol]140 U/LKkfp47-731 U/Job36 Other ALT [Catalytic activity/Vol]71 U/LHigh7-52 U/Job36 Other AST [Catalytic activity/Vol]20 U/QFyfmmy16-61 U/Job36 Other Bilirubin [Mass/Vol]0.3647239 mg/dLNormal0.3-1.0 mg/dL Issuu Other Calcium [Mass/Vol]9.5445183 mg/dLNormal8.6-10.3 mg/dL [employer] Other Chloride [Moles/Vol]107 mmol/MCdibjb50-416 mmol/Job36 Other CO2 [Moles/Vol]30.39053773 mmol/SGqjnqo89.0-31.0 mmol/Job36 Other Creatinine [Mass/Vol]0.58124795 mg/dLNormal0.60-1.20 mg/dLNoCuil Other GFR/1.73 sq M.predicted MDRD (S/P/Bld) [Vol rate/Area] mL/min/{1.73_m2}Issuu Other Glucose [Mass/Vol]89 mg/vHErovcv79-198 mg/dLIssuu Other Potassium [Moles/Vol]3.00755224 mmol/LNormal3.5-5.1 mmol/Job36 Other Protein [Mass/Vol]6.385373 g/dLLow6.4-8.9 g/dLLenox Sidecar Other Sodium [Moles/Vol]143 mmol/CRlhwlo052-856 mmol/LNcenterpointe [facility] Sidecar Other Urea nitrogen [Mass/Vol]21 mg/dLNormal7-25 mg/dLLenox Sidecar Other Comprehensive Metabolic Panel2.2 g/dLNoheartland behavioral health services Sidecar Other Free T4 (Free Thyroxine)on 53-35-3333Gmya T4 [Mass/Vol]1.10914277 ng/dLHigh0.61-1.12 ng/dLLenox Sidecar Other Thyroid Antibodies TPO+Tg Abon 09-46-5271Grpbdar Antibodies TPO+Tg Gb550-53Grkfs Sidecar Other Thyroid Antibodies TPO+Tg Ab<1.00.0-0.9[place] Sidecar Other Thyroid Stimulating Hormoneon 99-35-0818VIJ Qn 2.60403553490 m[IU]/LNormal0.45-5.33 u[iU]/mLNNeuren Pharmaceuticals Other Echocardiogramon 83-42-8039HycmypwmykkfnigfUxngeDeborah Ville [address] TRANSTHORACIC ECHOCARDIOGRAM REPORT Patient Name: LAVONNE Bahena Physician: [id number] Michel [facility] Study Date: 02/26/2023 Referring MICHEL WOLF Physician: MRN/PID: [id number] PCP: Suhas Garrett MD Accession/Order#: [id number] [facility] Location: Date of : 1935 Fellow: Gender: F Nurse: Admit Date: Ruffler: Sheridan Escalantez RDCS, RVT Height: 157.48 cm CC Report to: Weight: 67.13 kg Study Type: Echocardiogram BSA: 1.68 m2 Blood Pressure: 122 /76 mmHg Diagnosis/ICD: I35.0-Nonrheumatic aortic (valve) stenosis; R01.1-Cardiac murmur, unspecified Indication: HTN, Hyperlipidemia, Overweight, Hypothyroid, Polymyalgia Rheumatica Procedure/CPT: Echo Complete w Full Doppler-71950 Study Detail: The following Echo studies were [...] velocity across the aortic valve has increased wgby076 cm/s up to 374 cm/s and aortic [...] mmHg PIEDV: 2.50 m/s PADP: 28.0 mmHg [id number] Michel Wolf MD, FACC Electronically signed on 03/01/2023 at 2:16:46 PM Final NormalAdventHealth PorterOffice Visit (Cardiology)on 99-16-2950Iplthl-up visitDiagnoses/Problems Assessed Aortic stenosis (424.1) (I35.0) Murmur, cardiac (785.2) (R01.1) Essential hypertension (401.9) (I10) Hyperlipidemia (272.4) (E78.5) Overweight with body mass index (BMI) of 27 to 27.9 in adult (278.02,V85.23) (E66.3,Z68.27) Never smoker Hypothyroidism (244.9) (E03.9) PMR (polymyalgia rheumatica) (725) (M35.3) Orders Aortic stenosis, Murmur, cardiac Echocardiogram; Status:Hold For - Scheduling,Retrospective Authorization; Requested for:[id number]; Essential hypertension, Hyperlipidemia Changed: From Aspirin EC 81 MG TBEC TAKE 1 TABLET To Aspirin 81 MG Oral Tablet Delayed Release TAKE 1 TABLET DAILY Overweight with body mass index (BMI) of 27 to 27.9 in adult Healthy Weight Tips; Status:Complete - Retrospective Authorization; Done: [id number] Some eating tips that can help you lose weight.; Status:Complete - Retrospective Authorization; Done: [id number] SocHx: Never smoker Tobacco Use Screening; Status:Complete; Done: [id number] Patient Instructions Please bring all medicines, vitamins, [...] is being tapered gradually Michel Wolf MD, [facility] Past Medical History Problems History of [...] Multi Vitamin Oral TabletTAKE 1 TABLET DAILY. [place]-3 Fish Oil 1000 MG Oral CapsuleTAKE 1 [...] negative for complaint. Vitals Vital Signs Recorded: [id number] 11:32AM Heart Rate68, R Radial Oxfaacox200, RUE, Sitting Rvkhsgakb85, RUE, Sitting Height5 ft 2 in Zbctye622 lb BMI Aembxwfqdl23.07 kg/m2 BSA Calculated1.68 Tobacco Useb) No PHQ-2 [...] Screening.on 12-24-2022 [facility]No[facility] [address] DO Work Phone: Fall risk assessmenta) No falls within the last year [facility] 250 DO Work Phone: Tobacco use status CPHSb) [facility] DO Work Phone: Complete Blood Count Auto Diffon 23-57-7570Wrmjmxaio (Bld) [#/Vol]0.801501494 10*3/uLNormal0.0-0.2 10*3/Primo Round Other Basophils/100 WBC (Bld)0.700 %. %Issuu Other Eosinophils (Bld) [#/Vol]0.002729240 10*3/uLNormal0.0- 0.45 10*3/Primo Round Other Eosinophils/100 WBC (Bld)0.700 %. %Issuu Other Erythrocyte distribution width (RBC) [Ratio]13.500 % Vefsuu92.9-15.3 %Issuu Other Hematocrit (Bld) [Volume fraction]38.400 %Ykganp57.0- 46.4 %Issuu Other Hemoglobin (Bld) [Mass/Vol]12.566087 g/oCGtrpul88.8- 15.4 g/dLNoSyapse Sidecar Other Lymphocytes (Bld) [#/Vol]0.205400091 10*3/uLLow1.00- 4.8 10*3/Primo Round Other Lymphocytes/100 WBC (Bld)12.600 %. %Issuu Other MCH (RBC) [Entitic mass]33.7000 wwSfaphc08.7-34.3 pg Issuu Other MCV (RBC) [Entitic vol]100.4000 rLWxvi40-284 fLSyapse Sidecar Other Monocytes (Bld) [#/Vol]0.699103056 10*3/uLNormal0.0- 0.8 10*3/Primo Round Other Monocytes/100 WBC (Bld)6.800 %. %Issuu Other Neutrophils (Bld) [#/Vol]5.835118131 10*3/uLNormal1.8- 7.7 10*3/Primo Round Other Neutrophils/100 WBC (Bld)79.200 %. %Issuu Other Platelet mean volume (Bld) [Entitic vol]9.4000 fL Normal6.3-10.7 [facility] Other Platelets (Bld) [#/Vol]223 10*3/lJNjutyv797-387 10*3/Primo Round Other RBC (Bld) [#/Vol]3.8289812557 10*6/uLNormal3.60-5.00 10*6/Primo Round Other WBC (Bld) [#/Vol]6.772961754 10*3/uLNormal3.8-11.6 10*3/Primo Round Other Complete Blood Count Auto Diff6.6 10*3/uLNormal4.5- 11.0 10*3/Primo Round Other Complete Blood Count Auto Diff33.6 g/tKTabldm03.0-35.0 g/dLIssuu Other Complete Blood Count Auto Diff0.1 %Normal0-0.5 %Issuu Other Erythrocyte Sedimentation Rateon 67-79-4626OGA (Bld) [Velocity]28 mm/hNormal0-29[facility] Other VASC LAB Carotid Artery Duplex Ultrasoundon 02-21-2022 US.doppler [facility] [address] [place] Work Phone: COVID Quick Testingon 80-20-3949FgbtgeEdowodncEdtgi Sidecar Other Falls Screening (Age 18+)on 11-41-7563Rovb risk assessmenta) [facility] the [facility] Work Phone: Office Visit (Cardiology)on 24-07-8871Fhilew-up visit Diagnoses/Problems Assessed Essential hypertension (401.9) (I10) Patient Instructions By signing my name below, ISherin Lpn,Scribe, attest that this documentation has been prepared under the direction and in the presence of Dr. Michel Wolf MD. All medical record entries made [...] Multi Vitamin Oral TabletTAKE 1 TABLET DAILY. [place] 3 500 CAPSTAKE 1 CAPSULE Daily predniSONE 5 MG Oral Sltagp1NB 7.5MG BY MOUTH ONE DAILY ALTERNATING EVERY OTHER DAY Allergies Medication amoxicillin Hives;; Recorded By: Kayla Orr; 10/17/2021 10:50:34 AM Dilantin CAPS Rash; Recorded By: Kayla Orr; 10/17/2021 10:50:34 AM Fosamax eye pain; Recorded By: Kayla Orr; 10/17/2021 10:50:34 AM Depakote ER TB24 Recorded By: Kayla Orr; 10/17/2021 10:50:34 AM Vitals Vital Signs Recorded: 26Dec2021 11:04AMRecorded: 26Dec2021 11:00AM Heart Rate56, R Phnygv80, R Radial Pjrxpdaq472, LUE, Lsjqtrm295, RUE Qxndnumiw27, LUE, Juwkzeh86, RUE Height5 ft 2 in5 ft 2 in Wcmuew916 lb 143 lb BMI Kemznyrjej05.16 kg/m226.16 kg/m2 BSA Calculated1.661.66 Falls Screening (Age 18+)a) No falls within the last year Signatures Electronically signed by : Michel Wolf MD; Dec 26 2021 4:02PM EST (Author) [facility] TouchworksTobacco Screening.on 00-30-8390Hwxhv depression screening assessmentNoOhio[facility] Work Phone: Fall risk assessmenta) No falls within the last year [facility] Work Phone: Tobacco use status CPHSb) [facility] Work Phone: Vital Signs Date TimeVital SignValuePerforming BxoxvbbhoItsnadgr46-26-2599 11:07-0400Body eqpdvn666.5 cmMichel Wolf MD Work Phone: [facility]08-08-2025 11:07-0400 Body mass index (BMI) [Ratio]27.44 kg/n1XuzpwuMichel Wolf MD Work Phone: [facility]08-08-2025 11:07-0400 Body nynfqu32.04 kgMichel Wolf MD Work Phone: [facility]08-08-2025 11:07-0400 Diastolic blood iyvqgyzw19 mm[Hg]Michel Wolf MD Work Phone: 1(504)156-[address] [place], [place] 7234008-08-2025 11:07-0400 Heart rate60 /minMichel Wolf MD Work Phone: 1(313)591-[address] [place], [place] 7234008-08-2025 11:07-0400 Systolic blood mm[Hg]Michel Wolf MD Work Phone: 1(178)142-[address] [place], [place] 7234007-15-2025 12:30-0400 Body vaohad084.[address]07-15-2025 12:30-0400 Body mass index (BMI) [Ratio]26.52 kg/m[address] 12-21-2024 12:30-0400Body .[address] 12-21-2024 12:30-0400Diastolic blood xrefcbyb43 mm[Hg][address]07-15-2025 12:30-0400Systolic blood otrqhtjc715 mm[Hg][address]07-02-2025 13:56-0400Diastolic blood nogenyff21 mm[Hg]Reuben Burns LAVENDER FARM WORKER-[employer] OPERATOR Work Phone: 7(487)466-[address] [place], [place] 7234007-02-2025 13:56-0400 Systolic blood aqsoikik870 mm[Hg]Reuben Burns LAVENDER FARM WORKER-911 OPERATOR Work Phone: 5(735)501-[address] [place], [place] 7234007-01-2025 14:59-0400 Body .5 cmReuben Burns LAVENDER FARM WORKER-911 OPERATOR Work Phone: 1(642)749-[address] [place], [place] 7234007-01-2025 14:59-0400 Body mass index (BMI) [Ratio]26.45 kg/q4BljmuReuben Burns LAVENDER FARM WORKER-911 OPERATOR Work Phone: 8(745)170-[address] [place], [place] 7234007-01-2025 14:59-0400 Body rcfgaa89.59 kgReuben Burns LAVENDER FARM WORKER-911 OPERATOR Work Phone: 1(394)643-[address] [place], [place] 7234007-01-2025 14:59-0400 Heart rate62 /Torreymurali Burns LAVENDER FARM WORKER-911 OPERATOR Work Phone: [facility]11-08-2024 13:16-0500 Body hegdeh762.5 cmMichel Wolf MD Work Phone: [facility]11-08-2024 13:16-0500 Body mass index (BMI) [Ratio]26.67 kg/f1IcckgyMichel Wolf MD Work Phone: 0(022)345-[address] [place], [place] 7234011-08-2024 13:16-0500 Body pvchax91.13 kgMichel Wolf MD Work Phone: 7(905)212-[address] [place], [place] 7234011-08-2024 13:16-0500 Diastolic blood zfmvcosn77 mm[Hg]Michel Wolf MD Work Phone: 3(334)216-[address] [place], [place] 7234011-08-2024 13:16-0500 Heart rate62 /minMichel Wolf MD Work Phone: 4(681)165-[address] [place], [place] 7234011-08-2024 13:16-0500 Systolic blood mzguckuy513 mm[Hg]Michel Wolf MD Work Phone: 5(147)321-[address] [place], [place] 7234009-04-2024 12:28-0400 Body ixbjco745.[address] [place], [place] 8080109-04-2024 12:28-0400 Body mass index (BMI) [Ratio]27.98 kg/m2Ely [address] [place] [address] 02-11-2024 12:28-0400Body .[address] [place] [address] 02-11-2024 12:28-0400Diastolic blood fdqlhliz49 mm[Hg][address]09-04-2024 12:28-0400Systolic blood pyspjejq562 mm[Hg][address]01-26-2024 11:15-0500Body .48 cmSuhas Garrett Other [facility] Other [id number] 11:15-0500Body mass index (BMI) [Ratio] 28.53 kg/n5Zezgc Kunadan Other Issuu Other 01-26-2024 11:15-0500Body .76 kgCarterraquel Garrett Other Issuu Other 01-26-2024 11:15-0500Diastolic blood eixvajve15 mm[Hg] Suhas Tami Other Issuu Other 01-26-2024 11:15-0500Respiratory rate20 /minSuhas Tami Other Issuu Other 01-26-2024 11:15-0233VwW2% (BldA) [Mass fraction]99 % Suhasraquel Mayoadan Other Issuu Other 01-26-2024 11:15-0500Systolic blood nxocdyeo630 mm[Hg] Suhas Garrett Other Issuu Other 01-11-2024 11:09-0500Body .5 cmMichel Wolf MD Work Phone: [facility]01-11-2024 11:09-0500 Body mass index (BMI) [Ratio]27.98 kg/h7KwcdtfMichel Wolf MD Work Phone: [facility]01-11-2024 11:09-0500 Body rfosmo30.4 kgMichel Wolf MD Work Phone: [facility]01-11-2024 11:09-0500 Diastolic blood pzyezgqz08 mm[Hg]Michel Wolf MD Work Phone: [facility]01-11-2024 11:09-0500 Heart rate60 /minMichel Wolf MD Work Phone: [facility]01-11-2024 11:09-0500 Systolic blood ockwigok057 mm[Hg]Michel Wolf MD Work Phone: [facility]12-22-2023 11:00-0500 Body ucpfzw020.48 cmSuhas Garrett Other Issuu Other [id number] 11:00-0500Body mass index (BMI) [Ratio]27.8 kg/d1BfhaaSuhas Garrett Other Issuu Other 12-22-2023 11:00-0500Body wbdpbe23.95 kgSuhas Garrett Other Issuu Other 12-22-2023 11:00-0500Diastolic blood mm[Hg] Suhas Garrett Other Issuu Other 12-22-2023 11:00-0500Respiratory rate18 /minSuhas Garrett Other Issuu Other 12-22-2023 11:00-4091VvX0% (BldA) [Mass fraction]96 % Suhas Garrett Other Issuu Other 12-22-2023 11:00-0500Systolic blood mm[Hg] Suhas Garrett Other Issuu Other 09-22-2023 10:30-0400Body jrenxx011.48 cmSuhas Garrett Other Issuu Other 09-22-2023 10:30-0400Body mass index (BMI) [Ratio] 27.98 kg/e6Zzcft Gaeladan Other [facility] Other 09-22-2023 10:30-0400Body expsqh21.4 kgCarterraquel Garrett Other [facility] Other 09-22-2023 10:30-0400Diastolic blood nhgdsuql43 mm[Hg] Suhas Garrett Other [facility] Other 09-22-2023 10:30-0400Respiratory rate16 /minCarterraquel Garrett Other [facility] Other 09-22-2023 10:30-7146LkC0% (BldA) [Mass fraction]91 % Suhas Gaeladan Other [facility] Other 09-22-2023 10:30-0400Systolic blood wnrqijvy844 mm[Hg] Suhas Garrett Other [facility] Other 07-18-2023 11:32-0400Body vudsoj208.48 cmSuhas Hoffman Tami Work Phone: [phone]-Atglr [facility] [address] DO Work Phone: 1(577) 775-718807-18-2023 11:32-0400Body mass index (BMI) [Ratio] 27.07 kg/t5Itstm P Tami Work Phone: [phone]-Emgrq [facility] 250 DO Work Phone: 1(559) 960-266707-18-2023 11:32-0400Body surface area Derived from formula1.68 o5Jcbsx P Gaels Work Phone: mp319-4104CW-Wvepb [facility] DO Work Phone: 1(538) 649-656907-18-2023 11:32-0400Body .13 kgSuhas Mayoadan Work Phone: mp135-9298GT-Yshkw [facility] [address] DO Work Phone: 1(429) 381-912707-18-2023 11:32-0400Diastolic blood mm[Hg] Suhas Garrett Work Phone: [phone]-Zdjzh [facility] 250 DO Work Phone: 1(957) 224-541907-18-2023 11:32-0400Heart rate68 /minSuhas Mayos Work Phone: [phone]-Sembf [facility] [address] DO Work Phone: 1(960) 128-904307-18-2023 11:32-0400Systolic blood yozxsdmq728 mm[Hg] Suhas Garrett Work Phone: mp762-5208DT-Dfjua [facility] 250 DO Work Phone: 1(988) 767-298806-30-2023 10:30-0400Body fwmeiw213.48 cmSuhas Garrett Other Issuu Other 06-30-2023 10:30-0400Body mass index (BMI) [Ratio] 27.98 kg/u3FcvxwSuhas Garrett Other Issuu Other 06-30-2023 10:30-0400Body .4 kgSuhas Garrett Other Issuu Other 06-30-2023 10:30-0400Diastolic blood nfepgqag97 mm[Hg] Suhas Garertt Other Issuu Other 06-30-2023 10:30-0400Respiratory rate16 /minSuhas Garrett Other Issuu Other 06-30-2023 10:30-6232IrS5% (BldA) [Mass fraction]98 % Suhas Garrett Other Issuu Other 06-30-2023 10:30-0400Systolic blood mm[Hg] Suhasraquel Garrett Other Issuu Other 04-14-2023 11:45-0400Body iktkxl473.48 cmSuhas Garrett Other Issuu Other 04-14-2023 11:45-0400Body mass index (BMI) [Ratio] 26.34 kg/g3MiwcqSuhas Garrett Other Issuu Other 04-14-2023 11:45-0400Body timmue51.32 kgSuhas Garrett Other Issuu Other 04-14-2023 11:45-0400Diastolic blood mm[Hg] Suhas Garrett Other Issuu Other 04-14-2023 11:45-0400Respiratory rate16 /minSuhas Garrett Other Issuu Other 04-14-2023 11:45-9939IdM7% (BldA) [Mass fraction]98 % Suhasraquel Garrett Other Issuu Other 04-14-2023 11:45-0400Systolic blood jdagteye472 mm[Hg] Suhasraquel Mayoadan Other Issuu Other 02-13-2023 11:30-0500Body nwabov692.48 cmSuhas Garrett Other Issuu Other 02-13-2023 11:30-0500Body mass index (BMI) [Ratio] 26.85 kg/n2VhlxaSuhas Garrett Other Issuu Other 02-13-2023 11:30-0500Body ejumyz53.59 kgCarterraquel Garrett Other Issuu Other 02-13-2023 11:30-0500Diastolic blood mm[Hg] Suhas Tami Other Issuu Other 02-13-2023 11:30-0500Respiratory rate16 /minBryraquel Garrett Other Issuu Other 02-13-2023 11:30-6527MaX4% (BldA) [Mass fraction]98 % Suhas Garrett Other Issuu Other 02-13-2023 11:30-0500Systolic blood pqsonqjq034 mm[Hg] Suhas Garrett Other Issuu Other 11-09-2022 11:45-0500Body .48 cmCarterraquel Garrett Other Issuu Other 11-09-2022 11:45-0500Body mass index (BMI) [Ratio] 26.88 kg/o9Odaxa Kuns Other Issuu Other 11-09-2022 11:45-0500Body rkprua35.68 kgCarterraquel Garrett Other noCuil Other 11-09-2022 11:45-0500Diastolic blood guomfesz83 mm[Hg] Suhas Tami Other Issuu Other 11-09-2022 11:45-0500Respiratory rate16 /minSuhas Garrett Other Issuu Other 11-09-2022 11:45-9109EfR8% (BldA) [Mass fraction]99 % Suhas Garrett Other Issuu Other 11-09-2022 11:45-0500Systolic blood avziwkum278 mm[Hg] Suhas Garrett Other Issuu Other 09-16-2022 10:15-0400Body pevdob881.48 cmSuhas Garrett Other Issuu Other 09-16-2022 10:15-0400Body mass index (BMI) [Ratio] 27.07 kg/l3Jdhaz Kunadan Other Issuu Other 09-16-2022 10:15-0400Body .13 kgCarterraquel Garrett Other Issuu Other 09-16-2022 10:15-0400Diastolic blood acqecekl82 mm[Hg] Suhas Garrett Other Issuu Other 09-16-2022 10:15-0400Respiratory rate16 /minSuhas Garrett Other Issuu Other 09-16-2022 10:15-5635XgN0% (BldA) [Mass fraction]97 % Suhas Garrett Other Issuu Other 09-16-2022 10:15-0400Systolic blood mm[Hg] Suhas Garrett Other Issuu Other 09-15-2022 10:45-705975 1Bprimo Garrett Work Phone: [phone][place] [address] Work Phone: Comment on above:[id number] 15:45-0400Body .48 cmSuhas Garrett Other Issuu Other 09-08-2022 15:45-0400Body mass index (BMI) [Ratio]26.7 kg/k4FnfreSuhas Garrett Other Issuu Other 09-08-2022 15:45-0400Body .23 kgSuhas Garrett Other Issuu Other 09-08-2022 15:45-0400Diastolic blood ugzipmip10 mm[Hg] Suhas Garrett Other Issuu Other 09-08-2022 15:45-0400Respiratory rate16 /minSuhas Garrett Other Issuu Other 09-08-2022 15:45-0405IsX3% (BldA) [Mass fraction]96 % Suhas Garrett Other Issuu Other 09-08-2022 15:45-0400Systolic blood rpjbhzdi072 mm[Hg] Suhas Garrett Other [facility] Other 07-20-2022 11:04-0400Body tlbjur498.48 cmSuhas Garrett Work Phone: mp206-4431FI-Ljjnp [facility] [address] DO Work Phone: 1(776) 336-819607-20-2022 11:04-0400Body mass index (BMI) [Ratio] 26.16 kg/l1HgspoSuhas Garrett Work Phone: mp244-0460LB-Qzyle [facility] [address] DO Work Phone: 1(245) 673-414607-20-2022 11:04-0400Body surface area Derived from formula1.66 p6RkdmsSuhas Garrett Work Phone: mp421-9455PJ-Kcdqc [facility] [address] DO Work Phone: 1(662) 380-281407-20-2022 11:04-0400Body lbmboj14.86 kgSuhas Garrett Work Phone: mp773-7430GR-Pemub [facility] [address] DO Work Phone: 1(461) 943-799907-20-2022 11:04-0400Diastolic blood erautbvj15 mm[Hg] Suhas Garrett Work Phone: mp253-3636UU-Vpmjs [facility] [address] DO Work Phone: 1(258) 114-179507-20-2022 11:04-0400Heart rate56 /minSuhas Garrett Work Phone: mp759-0022LE-Zxqxj [facility] [address] DO Work Phone: 1(272) 837-851507-20-2022 11:04-0400Systolic blood wjmiehvc897 mm[Hg] Suhas Garrett Work Phone: mp803-7932BD-Ujewy [facility] [address] DO Work Phone: 1(422) 315-147207-20-2022 11:00-0400Diastolic blood nddgknej70 mm[Hg] Suhas Garrett Work Phone: 1(238) 740-8392639-1307AP-Snukj [facility] [address] DO Work Phone: 1(216) 312-216907-20-2022 11:00-0400Systolic blood ldjotavx671 mm[Hg] Suhas Garrett Work Phone: 1(879) 522-8935909-9970TQ-Rwafv [facility] [address] DO Work Phone: 1(616) 347-874907-07-2022 11:39-0400Diastolic blood dtwbygys47 mm[Hg] Suhas Garrett Work Phone: 1(322)[address] [place] [address] Work Phone: 1(361) 801-122607-07-2022 11:39-0400Systolic blood jezgfgbm763 mm[Hg] Suhas Garrett Work Phone: 1(248)[address] [place] [address] Work Phone: 1(645) 892-165307-07-2022 11:22-0400Diastolic blood mm[Hg] Suhas Garrett Work Phone: 1(477)[address] [place] [address] Work Phone: 1(635) 464-811907-07-2022 11:22-0400Systolic blood cmxyinzd409 mm[Hg] Suhas Garrett Work Phone: 1(219)[address] [place] [address] Work Phone: 1(713) 799-670907-07-2022 11:17-0400Body etnzzk041.48 cmSuhas Garrett Work Phone: 1(102)[address] [place] [address] Work Phone: [phone] 11:17-0400Body mass index (BMI) [Ratio] 26.52 kg/c9TrowdSuhas Garrett Work Phone: 1(371)[facility]51[facility] Work Phone: [phone] 11:17-0400Body surface area Derived from formula1.67 a6SwuzaSuhas Garrett Work Phone: 1(918)[address] [place] [address] Work Phone: 1(423) 371-892207-07-2022 11:17-0400Body rniiaw61.77 kgSuhas Garrett Work Phone: 1(419)[address] [place] [address] Work Phone: 1(199) 406-448207-07-2022 11:17-0400Diastolic blood didmwklb64 mm[Hg] Suhas Garrett Work Phone: [facility] Work Phone: 1(431) 782-793907-07-2022 11:17-0400Heart rate60 /minSuhas Garrett Work Phone: [facility] Work Phone: 1(250) 585-332807-07-2022 11:17-0400Systolic blood lcfbkejm805 mm[Hg] Suhas Garrett Work Phone: [facility] Work Phone: 1(441) 697-783404-25-2022 13:30-0400Body .48 cmSuhas Garrett Other Iss[employer] Other 04-25-2022 13:30-0400Body mass index (BMI) [Ratio] 26.34 kg/e5QceiiSuhas Garrett Other Issuu Other 04-25-2022 13:30-0400Body qzemeh21.32 kgSuhas Garrett Other Issuu Other 04-25-2022 13:30-0400Diastolic blood bbuoirur88 mm[Hg] Suhas Garrett Other Iss[employer] Other 04-25-2022 13:30-0400Respiratory rate18 /minSuhas Garrett Other Iss[facility] Other 04-25-2022 13:30-4843RfT5% (BldA) [Mass fraction]99 % Suhas Garrett Other [employer] Other 04-25-2022 13:30-0400Systolic blood fkxlkytn574 mm[Hg] Suhas Garrett Other Issuu Other 02-24-2022 13:30-0500Body urhhrq384.48 cmCarterraquel Garrett Other Issuu Other 02-24-2022 13:30-0500Body mass index (BMI) [Ratio] 26.52 kg/l3Ntwko Kunadan Other Issuu Other 02-24-2022 13:30-0500Body .77 kgCarterraquel Garrett Other Iss[employer] Other 02-24-2022 13:30-0500Diastolic blood ehvfxaia02 mm[Hg] Suhas Garrett Other [employer] Other 02-24-2022 13:30-0500Respiratory rate16 /minSuhas Garrett Other [employer] Other 02-24-2022 13:30-9291CaE9% (BldA) [Mass fraction]99 % Suhas Garrett Other Iss[employer] Other 02-24-2022 13:30-0500Systolic blood iremldiu294 mm[Hg] Suhas Tami Other Issuu Other 11-18-2021 13:30-0500Body .48 cmSuhas Garrett Other Issuu Other 11-18-2021 13:30-0500Body mass index (BMI) [Ratio] 25.97 kg/h2KtpfhSuhas Garrett Other noCuil Other 11-18-2021 13:30-0500Body gculmo33.41 kgSuhas Garrett Other Issuu Other 11-18-2021 13:30-0500Diastolic blood mm[Hg] Suhas Garrett Other [employer] Other 11-18-2021 13:30-0500Respiratory rate17 /minSuhas Garrett Other Issuu Other 11-18-2021 13:30-2461YyH6% (BldA) [Mass fraction]98 % Suhas Garrett Other [employer] Other 11-18-2021 13:30-0500Systolic blood yyormoqj661 mm[Hg] Suhas Garrett Other Issuu Other Encounters Encounter DateEncounter TypeCare ProviderFacilityStart: 02-14-2025 End: 38-41-5166dyaxrbklioMqaxahfJorge Weston MDFacility:PM [facility]ander Start: 01-14-2025 End: 18-40-5376Dxjosm outpatient visit 25 minutesMichel Wolf MD Work Phone: [facility] HospitalComment on above:Nonrheumatic aortic valve stenosis (Primary Dx); 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; Hyperlipidemia, unspecified hyperlipidemia type; PMR (polymyalgia rheumatica) (Multi); Hypothyroidism, unspecified type; BMI 27.0-27.9,adult; Never smoked any substance; OverweightStart: 01-14-2025 End: 96-55-4756jdkjzbfhdeZGFEMM M IBRCHI [facility] AmbulatoryStart: 12-21-2024 End: 98-81-9331Wtzvcthvyn hospital visit by Julia Baker Echo[facility]asc [facility] 2[facility]Comment on above:Aortic valve stenosis, etiology of cardiac valve disease unspecifiedStart: 12-21-2024 End: 35-40-0664qwjvnuhfllERLHRARegency Hospital Toledotart: 12-07-2024 End: 71-77-7584Zynlbn outpatient visit 15 Silkemayo Gibbs Grant BURGER Work Phone: uh [facility] HealthComment on above: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 (Primary Dx); BMI 26.0-26.9,adultStart: 12-07-2024 End: 59-26-8015zqtweyxoseBXBJDAtrium Health Anson AmbulatoryStart: 10-25-2024 End: 51-42-4020atnvazxbzzEtvcxen Vytautas Giedraitis MDFacility:[facility] Start: 09-13-2024 End: 74-74-9420tqoiqywvqwGmcwcrr Vytautas Giedraitis MDFacility:[facility] Start: 07-28-2024 End: 18-43-9321wdxkqbxkqbCaftf TamiFacility:[facility] Start: 05-25-2024 End: 63-35-4097qimvxtkwuqAlkdn KunsFaselect specialty hospital-quad cities:[facility] Start: 04-16-2024 End: 32-81-0521Tulkcr outpatient visit 25 minutesMichel Wolf MD Work Phone: uh [facility] HealthComment on above:Aortic valve stenosis, etiology of cardiac valve disease unspecified (Primary Dx); Essential hypertension; Hyperlipidemia, unspecified hyperlipidemia type; Never smoked any substance; BMI 26.0-26.9,adult; Hypothyroidism, unspecified typeStart: 04-16-2024 End: 59-59-8565udwaqdpqrdAOXUQK [facility] AmbulatoryStart: 02-11-2024 End: 74-04-6844Vdjlabgsmr hospital visit by Julia Baker Echo[facility]asc [facility]Com[facility] on above:Nonrheumatic aortic valve stenosis; Aortic valve stenosis, etiology of cardiac valve disease unspecifiedStart: 02-11-2024 End: 98-10-8691edadcigpogOYJYLZ M [facility] Centertart: 10-14-2023 End: 01-10-5780ghvlmrztqkOiees KunsFacility:[facility] Start: 09-03-2023 End: 63-63-8959mpjikhndxrLrlfe GaelsFacility:[facility] Start: 07-18-2023 End: 37-98-5419mburzfzhpuFmrzq Gaels Other noCuil Other Start: 33-73-7802Fkjsfqjfe encounterBryraquel MayosFPG Family Medicine CastaliaStart: 07-15-2023 End: 47-68-9552itmkwkzftyGxvpd Kuns Other noCuil Other Start: 72-56-3545Tjpnfsxlj encounterBryraquel MayosFPG [facility] CastaliaStart: 07-10-2023 End: 10-45-3465eoencydylyLfoot Kuns Other noCuil Other Start: 35-45-6956Dtpnuzdgd encounterBryraquel MayosFPG [facility] CastaliaStart: 07-07-2023 End: 01-20-5572msriosooqpYcdcv Kuns Other noCuil Other Start: 49-39-4055Xzegwrnpa encounterBryraquel MayosFPG [facility] Medicine CastaliaStart: 07-04-2023 End: 94-66-1344ltkpcidpajMqvuc Kuns Other noCuil Other Start: 14-98-7787Qcqmro outpatient visit 15 minutes Suhas MayosFPG Family Medicine CastaliaStart: 06-19-2023 End: 82-49-4746cqcyzslvxiCeynz Kuns Other [employer] Other Start: 38-06-8442Jbjbqpssi encounterSuhas MayoCory [facility] [place]Start: 06-19-2023 End: 10-26-2359Xhnvbf outpatient visit 25 minutesMichel Wolf MD Work Phone: [facility] HospitalComment on above:Aortic valve stenosis, etiology of cardiac valve disease unspecified; Essential hypertension; Hyperlipidemia, unspecified hyperlipidemia type; Never smoked any substanceStart: 05-30-2023 End: 09-85-2246ijnxucfcnaHfqja Kuns Other noCuil Other Start: 37-61-7500Akaksl outpatient visit 25 minutes Suhas MayoadanLEYDI [facility] [place]Start: 05-28-2023 End: 19-96-4156rxigdlhtiiJltdq Kuns Other VeosearchNo [employer] Other Start: 50-22-4266Fduwllekz encounterSuhas MayoDereckShravan Family Medicine [place]Start: 04-23-2023 End: 97-22-1189bqnpaueqzbHmqwt Kuns Other noCuil Other Start: 05-71-0065Kilerxmwu encounterSuhas MayoDereckShravan Family Medicine [place]Start: 04-18-2023 End: 56-33-6449yfbudjslcuCsmij Kuns Other noCuil Other Start: 97-71-1590Umssuzicj encounterSuhas MayoadanFPG Family [facility] [place]aliaStart: 98-64-1445Pasnz UpdateSuhas Garrett Work Phone: [phone]) [phone]-[facility]fxAustin [facility] 250 DO Work Phone: Start: 02-28-2023 End: 21-83-5829fnzzpuhrqiCcnva Kuns Other noCuil Other Start: 25-61-7835Bhdjms outpatient visit 15 minutes Suhas GaelCory Family Medicine [place]aliaStart: 87-50-6029cwdvzmdatfSc. Suhas GarrettMid-Valley Hospitality:[id number]: 01-27-2023 End: 67-16-9732zonyeobzsxQpkiw Kuns Other noCuil Other Start: 40-92-6897Pybhywgfk encounterBryraquel Sommers [facility] [place]Start: 90-05-8029Jrtkog outpatient visit 25 minutesSuhas Garrett Work Phone: [phone]) [phone]-JwrwgJess[place] [address] DO Work Phone: Start: 37-91-7324ylqzfgcljiGk. Michel Agosto [facility] Facility:[id number]: 12-06-2022 End: 57-94-1702wlailpdhrbKhvov Kuns Other noCuil Other Start: 03-72-5171Fxnmek outpatient visit 15 minutes Suhas GaelCory Family Medicine [place]Start: 09-20-2022 End: 06-51-5505opqjghbfrlIthxf Kuns Other [employer] Other Start: 44-38-6315Txbndw outpatient visit 15 minutes Suhas GaelCory Family Medicine CastaliaStart: 08-14-2022 End: 43-44-2732squfypegztUnhhj Kuns Other no[employer]il Other Start: 89-98-2293Aoaddjjqi encounterBryraquel GaelCory Family Medicine CastaliaStart: 07-22-2022 End: 52-65-0185tgsndvkxprHhypc Kuns Other [employer] Other Start: 83-84-9476Vsahms outpatient visit 15 minutes Suhas [facility] [place]aliaStart: 04-17-2022 End: 67-79-0504wlqssxyxfjEpanq Kuns Other [employer] Other Start: 05-04-8231Vffvcg outpatient visit 15 minutes Suhas ManciniG Family Medicine [place]aliaStart: 04-10-2022 End: 50-64-8956uebfqdnxdmVhgyj Kuns Other [employer] Other Start: 86-84-7325Ofzxpfgfn encounterBryraquel GarrettFPG Family Medicine [place]aliaStart: 04-03-2022 End: 55-31-0992lospkzdggeEjnxf Kuns Other [employer] Other Start: 27-66-9329Ympbpveeu encounterBryraquel GarrettFPG Family [facility] [place]aliaStart: 04-02-2022 End: 27-06-2907xmlnbadzhuXsgzc Kuns Other [facility] Other Start: 77-04-7418Mhqlrtopt encounterBryraquel GarrettFPG Family Medicine [place]aliaStart: 02-26-2022 End: 29-29-2544hvxigomcquRtsew Kuns Other [facility] Other Start: 47-23-6776Btzhxzhra encounterBryraquel GarrettFPG Family [facility] [place]aliaStart: 02-25-2022 End: 17-91-7904szndlyosdfGwuug Kuns Other [employer] Other Start: 88-64-9543Kcilxsslo encounterBryraquel MayosFPG Family Medicine [place]aliaStart: 02-22-2022 End: 76-21-0794hedcedmateZdnip Kuns Other [facility]No [employer] [employer] Other Start: 56-55-2509Scyghe outpatient visit 25 minutes Suhas MayoadanLEYDI Family Medicine CastaliaStart: 81-21-9579Zustrxr encounter procedureSuhas Garrett Work Phone: [phone]-NtvjlCass [facility] [address] [place] Work Phone: Start: 02-20-2022 End: 50-46-2324ckkezogkghCWFXSZW M MANONFacility:E1Dajnx: 02-14-2022 End: 31-81-8312lyicpxhhqpQejef Kuns Other [facility] CenterNo [employer] [employer] Other Start: 13-21-0576Rcubin outpatient visit 25 minutes Suhas [facility]mers [facility] [place]Start: 01-11-2022 End: 86-03-7558pdprnpymxjQyegm Kuns Other [facility] CenterNo [employer] [employer] Other Start: 25-63-2802Phkwgxs evaluation of patient and reportBryraquel MayoadanLEYDI Family Medicine CastaliaStart: 81-27-4685Fsoqsagrn encounter Suhas GaeladanLEYDI Family Medicine CastaliaStart: 54-30-6459Qhkqcq outpatient visit 10 minutesSuhas Garrett Work Phone: [phone]-IlvndCass Lake Hospital [address] DO Work Phone: Start: 46-58-6949dvdjazevojCn. Bryan Patrick Kuns Facility:[id number]: 12-20-2021 End: 03-85-8429vtjdbaujqgUdzmi Kuns Other noNo [employer] Other Start: 08-65-4560Lukolcfvw encounterSuhas MayoadanLEYDI Family Medicine [place]aliaStart: 82-46-5715Eftjpz outpatient visit 25 minutesSuhas Garrett Work Phone: [facility] Work Phone: Start: 11-02-2021 End: 76-96-0224djudcwkcecTgyeh Kuns Other [employer] Other Start: 70-07-8127Qtzdxsqgn encounterBryraquel GarrettFPG Family [facility] [place]Start: 10-01-2021 End: 35-02-8400xhsspvyvjzDvfcj Kuns Other [employer] Other Start: 98-57-2911Vgdfve outpatient visit 15 minutes Suhas GarrettFPG [facility] [place]Start: 09-10-2021 End: 69-83-8840wblvxujcdrPgjvt Kuns Other [employer] Other start: 53-05-2139Dufzmzwjg encounterBryraquel GarrettFPG Family [facility] [place]aliaStart: 08-20-2021 End: 83-16-2715lfealjqgqiDsgzf Kuns Other [employer] Other Start: 90-41-6853Tkooqvzfv encounterBryraquel GarrettFPG [facility] [place]aliaStart: 08-02-2021 End: 78-20-0109wthziajajtDvmqb Kuns Other no[employer] Other Start: 14-54-8624Eirvql outpatient visit 15 minutes Suhas GarrettFPG [facility] [place]aliaStart: 07-25-2021 End: 75-26-5945dcytnqsnguHwjzj Kuns Other [employer] Other Start: 54-77-4436Lwglwwzji encounterBryraquel GarrettFPG Family [facility] [place]aliaStart: 05-08-2021 End: 39-45-1190boihsvuyyhFzqzk Kuns Other noCuil Other start: 40-90-4041Bbrfcgwwr encounterCarterraquel Matthieu [facility] [place]aliaStart: 04-26-2021 End: 52-74-3638vmnpnvamwiGgocq Kuns Other [facility] Other Start: 09-13-1838Zunxuy outpatient visit 25 minutes Suhas [facility] [place] Procedures DateProcedureProcedure Detail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Start: 86-89-5106Buua [facility] r-t 2d w/wom-mode compl spec&colr Clayton Wolf MD Work Phone: Start: 54-38-7089BbhcbhlszvgsoyxnSirwx P Kuns Work Phone: Start: 97-24-2570JszkjwkgzbodeyjfMtoss P Kuns Work Phone: AppendectomyBryan P Kuns Work Phone: CholecystectomyBryan P Kuns Work Phone: Operation on ovaryBryan P Kuns Work Phone: ThyroidectomyBryan P Kuns Work Phone: Total colonoscopyBryan P Kuns Work Phone: Plan of Treatment DateCare ActivityDetailAuthorStart: 59-14-3278THwC/Tdap/Td Vaccines (2 - Td or Tdap)DTaP/Tdap/Td Vaccines (2 - Td or Tdap)[facility] Start: 01-26-2026 End: 20-82-5748Atuwnyz encounter srykeogqn52/20/2026 11:00 AM EDT Office Visit [facility] [address] [facility] [address] [place] [address] Michel Wolf MD [address] [facility] [address] [place] [address] [facility]Start: 52-00-6617HjingrckfaxakftsKsnsuzvoyfkfei [facility]: 12-20-2025 End: 84-22-2822Kewxjff encounter yywkepmmc20/14/2026 10:45 AM EDT Appointment [place] [address] [facility] [address] [place] [phone] [facility]: 12[facility]14[facility]2025 End: 72-61-4677GY Heart TransthoracicTransthoracic Echo Complete Echocardiography Routine Nonrheumatic aortic valve stenosis Expected: 12/14/2025 (Approximate), Expires: 01/14/2027[facility] Service Area Work Phone: Comment on above:Expected: 12/14/2025 (Approximate), Expires: 01/14/2027Start: 03-01-2026Medicare Annual Wellness VisitMedicare Annual Wellness Visit (AWV)[facility]: 02-10-2025 EchocardiographyEchocardiogramUnMansfield Hospital: 02-07-2025 Influenza vaccinationInfluenza Vaccine (#1)[facility] Start: 01-14-2025 End: 76-57-2240OX Heart TransthoracicTransthoracic Echo Complete Echocardiography Routine Aortic valve stenosis, etiology of cardiac valve disease unspecified Expected: 01/14/2025 (Approximate), Expires: 04/16/2026[facility] Service Area Work Phone: Comment on above:Expected: 01/14/2025 (Approximate), Expires: 04/16/2026Start: 01-14-2025 End: 44-40-0381Pmbyiot encounter cguoyxkpk07/08/2025 11:00 AM EDT Office Visit [address] [place] [address] Michel Wolf MD [address] [facility] [address] [place] [address] [facility]: 12-21-2024 End: 77-09-0314Diihpdm encounter mohjaykug45/15/2025 12:30 PM EDT Appointment [place] [address] [place] [address] [place] [phone] [facility]: 54-33-0400RKXMG-19 Vaccine ( season)COVID-19 Vaccine ( season)[facility]: 03-16-2024 End: 06-71-4599Szhmxke encounter /08/2024 11:20 AM EDT Office Visit [address] [phone] Michel Wolf MD [address] [facility] [address], [address] [address] [facility]: 06-78-8272Xirgyjimk for osteoporosisBone Density [facility]: 02-11-2024 End: 09-68-7936Msvxxjm encounter hancwcpdr75/04/2024 12:30 PM EDT Appointment [address] [phone] [facility]: 62-43-2013ZCSAL-19 Vaccine ( season)COVID-19 Vaccine ( season)[facility]: 02-08-2024 Influenza vaccinationInfluenza Vaccine (#1)[facility] Start: 02-08-2024 End: 08-46-4954MG Heart TransthoracicTransthoracic Echo (TTE) Complete Echocardiography Routine Aortic valve stenosis, etiology of cardiac valve disease unspecified Expected: 02/08/2024 (Approximate), Expires: 06/19/2025[facility] Service Area Work Phone: Comment on above:Expected: 02/08/2024 (Approximate), Expires: 06/19/2025Start: 03-80-3341REU, Provider: Michel Wolf, Status: Pen, Time: 11:00 AMFUV, Provider: Michel Wolf, Status: Pen, Time: 11:00 AM[place] [address] [place] Work Phone: Start: 78-54-5324DEGRA-19 Vaccine (5 - Moderna series) COVID-19 Vaccine (5 - Moderna series)[facility]: 26-28-7427XUYT, Provider: TATYANA HHVI ULTRASOUND 01,[id number], Status: Pen, Time: 10:45 AMECHO, Provider: TATYANA YII ULTRASOUND 01,[id number], Status: Pen, [facility]: 10:45 [facility] [address] DO Work Phone: Start: 60-46-4488TVF, Provider: Michel Wolf, Status: Pen, Time: 11:20 AMFUV, Provider: Michel Wolf, Status: Pen, Time: 11:20 AM[facility] Work Phone: Start: 36-56-2547WJMYTJM, Provider: TATYANA YII ULTRASOUND 01,[id number], Status: Pen, Time: 12:30 PMCAROTID, Provider: TATYANA HHVI ULTRASOUND 01,[id number], Status: Pen, Time: 12:30 PMOhio[facility] Work Phone: start: 04-43-7712RBUG, Provider: TATYANA HHVI ULTRASOUND 01,[id number], Status: Pen, Time: 10:45 AMECHO, Provider: TATYANA HHVI ULTRASOUND 01,[id number], Status: Pen, Time: 10:45 [facility] Work Phone: start: 98-49-2221TJKVRLZ, Provider: TATYANA HHVI ULTRASOUND 01,[id number], Status: Pen, Time: 2:30 PMCAROTID, Provider: TATYANA HHVI ULTRASOUND 01,[id number], Status: Pen, Time: 2:30 PMOhio[facility] Work Phone: start: 26-80-7735VVTB, Provider: TATYANA HHVI ULTRASOUND 01,[id number], Status: Pen, Time: 1:30 PMECHO, Provider: TATYANA HHVI ULTRASOUND 01,[id number], Status: Pen, Time: 1:30 PMOhio[facility] Work Phone: Start: 46-79-9244IQBESEMR, Provider: [facility] DIRECT[facility] 1,[id number], Status: Pen, Time: 11:00 AMNURSEVST, Provider: [facility] DIRECT[facility] 1,[id number], Status: Pen, Time: 11:00 AMOhio[facility] Work Phone: Start: 67-92-6346Ktpfykcly B Vaccines (1 of 3 - Risk 3-dose series)Hepatitis B Vaccines (1 of 3 - Risk 3-dose series)[facility]: 82-79-4512Cwmhimtmu A Vaccines (1 of 2 - Risk 2- dose series)Hepatitis A Vaccines (1 of 2 - Risk 2-dose series)[facility]: 99-07-0786Zcpeodwhiq measurementCreatinine Level [facility]: 41-72-0640Dgddu panelLipid Panel [facility]: 03-04-1937Medicare Annual Wellness Visit Medicare Annual Wellness Visit (AWV)[facility]: 83-30-5248Blkravypq measurementPotHoldenville [facility] [place] Start: 33-83-7715Howppep stimulating hormone measurementTSNorman Specialty Hospital – NormanECG 12 LeadECG 12 Lead ECG Routine 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 Ordered: 12/08/2024[facility] Work Phone: Comment on above:Ordered: 12/08/2024 End: 04-26-0225BV Heart TransthoracicSUN[facility] Work Phone: Comment on above:Once for 1 Occurrences starting 02/11/2024 until 02/11/2024 Immunizations Immunization DateImmunizationNotesCare TamjyunpTostlnpp91-12-3792Rgsafjuwhgne conjugate vaccine, 20-valent (PREVNAR 20)Michel Wolf MD Work Phone: [facility] Work Phone: [phone] COVID-19 vaccine, 12 years and older (50mcg/0.5mL)(Spikevax)Michel Wolf MD Work Phone: [facility] Work Phone: [phone]ugn trivalent influenza vaccine, adjuvanted, preservative freeMichel Wolf MD Work Phone: [facility] Work Phone: [phone] virus vaccine, unspecified formulationReuben Burns LAVENDER FARM WORKER-911 OPERATOR Work Phone: [facility] Work Phone: [phone] SYNCYTIAL VIRUS (RSV), ELIGIBLE PTS, 0.5 ML (ABRYSVO)Michel Wolf MD Work Phone: [facility] Work Phone: [phone], Seasonal, Quadrivalent, AdjuvantedMichel Wolf MD Work Phone: [facility] Work Phone: [phone] COVID-19 vaccine, 12 years and older (50mcg/0.5mL)(Spikevax)Michel Wolf MD Work Phone: [facility] Work Phone: [phone] virus vaccine, unspecified formulationEly 2[facility] Work Phone: [phone] COVID-19 Bivalent 50 MCG/0.5ML Intramuscular SuspensionSuhas Garrett Work Phone: [facility] [address] DO Work Phone: [phone] Quadrivalent 0.5 ML Intramuscular Prefilled SyringeBryraquel P Tami Work Phone: [phone]-MauvuCass Lake Hospital [address] DO Work Phone: [phone], seasonal, injectableBryan Kuns Other [facility] Other [id number] COVID-19 Vaccine 100 MCG/0.5ML Intramuscular SuspensionBryan P Kuns Work Phone: [facility] Work Phone: [phone] COVID-19 Vaccine 100 MCG/0.5ML Intramuscular SuspensionBryan P Kuns Work Phone: [facility] Work Phone: [phone], seasonal, injectableBryan Kuns Other [employer] Other [id number] COVID-19 Vaccine 100 MCG/0.5ML Intramuscular SuspensionBryan P Kuns Work Phone: [facility] Work Phone: [phone]ra COVID-19 Vaccine 100 MCG/0.5ML Intramuscular SuspensionBryan P Kuns Work Phone: [facility] Work Phone: [phone]oa polysaccharide vaccine, 23 valentBryan Gaels Other [facility] Other [id number] trivalent influenza vaccine, adjuvanted, preservative freeBryan P Kuns Work Phone: [facility] Work Phone: [phone]kqzhhqdg, seasonal, injectableBryan Kuns Other [employer] Other [id number] virus vaccine, unspecified formulationBryan P Kuns Work Phone: [facility] Work Phone: [phone], seasonal, injectableBryan Kuns Other [employer] Other 11-698805-12-3457ozoggr vaccine recombinantBryan Kuns Other [employer] Other 10-744552-24-5291vgiehswds, high dose seasonal, preservative-freeBryan P Kuns Work Phone: [facility] Work Phone: [phone], seasonal, injectableBryan Kuns Other [employer] Other [id number] vaccine recombinantBryan Kuns Other [employer] Other 12470238-22-5636zlnhfdi toxoid, reduced diphtheria toxoid, and acellular pertussis vaccine, adsorbedBryan Kuns Other [employer] Other 10883718-70-5962Tktemtis trivalent influenza vaccine, adjuvanted, preservative freeMichel Wolf MD Work Phone: [facility] Work Phone: [phone]mfs virus vaccine, unspecified formulationBryan P Kuns Work Phone: [facility] Work Phone: [phone] virus vaccine, unspecified formulationBryan P Kuns Work Phone: [facility] Work Phone: [phone] trivalent influenza vaccine, adjuvanted, preservative freeBryan P Kuns Work Phone: [facility] Work Phone: [phone]fygywyetd conjugate vaccine, 13 valent Michel Wolf MD Work Phone: [facility] Work Phone: [phone]zcuklle conjugate vaccine, 13 valent Suhas Gaels Other [facility] Other 10-480120-28-9197Hidlerai trivalent influenza vaccine, adjuvanted, preservative freeCarteran P Gaels Work Phone: [facility] Work Phone: [phone]osuelkse virus vaccine, unspecified formulationBryan P Kuns Work Phone: [facility] Work Phone: [phone]xjhdvoipz conjugate vaccine, 13 valent Suhas Dalton Garrett Work Phone: [facility] Work Phone: [phone], injectable, quadrivalent, contains preservativeBryan P Kuns Work Phone: [facility] Work Phone: [phone]iisgnako virus vaccine, unspecified formulationBryan P Kuns Work Phone: [facility] Work Phone: [phone]cnglpcpo, seasonal, injectable, preservative freeCarteran P Kuns Work Phone: [facility] Work Phone: [phone]hjxbgviz virus vaccine, whole virusCarteran P Gaels Work Phone: [facility] Work Phone: [phone]yhyoli, seasonal, injectableBryan P Kuns Work Phone: [facility] Work Phone: [phone]klgenues virus vaccine, unspecified formulationCarteran P Kuns Work Phone: [facility] Work Phone: [phone]xctjawnf, injectable, quadrivalent, contains preservativeBryan Kuns Other [employer] Other 01412019-31-4032dauaofbqr virus vaccine, unspecified formulationBryan P Kuns Work Phone: [facility] Work Phone: [phone]qyx virus vaccine, unspecified formulationBryan P Kuns Work Phone: [facility] Work Phone: [phone]jgzfm virus vaccine, unspecified formulationBryan P Kuns Work Phone: [facility] Work Phone: [phone] dnwhecjra-F3Y0-68, preservative-free, injectableBryan P Kuns Work Phone: [facility] Work Phone: [phone]dewdpi virus vaccineBryan P Kuns Work Phone: [facility] Work Phone: [phone]avgye polysaccharide vaccine, 23 valentBryan P Kuns Work Phone: [facility] Work Phone: Payers DatePayer CategoryPayerPolicy [id number]-[id number] Care (Private)[facility] .[id number] Private Health [id number]3-2980 [id number]65-43-8735Ccbvyyj41-81-1930 [id number] 2..7.608471.34197234-13-4920Uwejzxz Health Insurance [id number] 2..9.39248[id number] 2..1.969451.3.57[id number] 2..1.481549.3.57[id number] 2..1.081058.3.57[id number] 2..1.987110.3.57[id number] 2..1.022590.3.57[id number] 2.0.1.794496.3.57[id number] 2.0.1.609573.3.57[id number] 2.0.1.197284.3.57[id number] 2.0.1.921737.3.57[id number] 2.16.840.1.827912.3.57[id number] 2.16.840.1.879711.3.57[id number] 2.16.840.1.0[id number] 2.16.840.1.613274.3.579.2.531 [id number] 2.16.840.1.4[id number] 2.16.840.1.4[id number] 2.16.840.1.292949.3.579.2.531 Social History DateTypeDetailFacilityUnknown if ever smokedLegacy Health Karaz Other Start: 06-19-2023 End: 15-82-9415Gew Assigned At BirthNoheartland behavioral health services [facility] Other Start: 06-19-2023 End: 89-58-4246Dongqdvl useCaffeine useOhiohealth Pickerington [facility] Work Phone: Start: 35-12-3048Xmjslmf smoking status NHISNever smoked tobaccoUnThe Christ Hospital Work Phone: Start: 35-34-1125Odlccru use and exposureSmokeless tobacco non-userUnThe Christ Hospital Work Phone: Start: 31-43-5568Cuy Assigned At BirthNot on file [facility] Work Phone: Start: 06-09-2023 End: 79-77-2092Bjwuuetw to SARS-CoV-2 (event)Not sureUnThe Christ HospitalStart: 04-16-2024 End: 13-32-0567Lhqqwselg beverage intakeCurrent drinker of alcohol (finding) [facility] Work Phone: Start: 32-64-8598RxlHvanxqBujmvfxbxeOhioHealth [facility] Clinical Notes 02-15-2015 to 01-14-2025 Note Date & LxsfLbfvGkgeauby09-26-6407 History of Present illness Narrative* Michel Wolf MD - 01/14/2025 11:00 AM EDT [...] exam, discussion and plan. documented in this encounterOhio State East Hospital Work Phone: [phone] 810-372708-08-2025 Instructions* Patient Instructions* Richelle Frey LPN - [...] through Care Everywhere. * Heart Healthy Diet (Kinyarwanda) documented in this encounterOhio State East Hospital Work Phone: [phone] 982-536507-01-2025 History of Present illness Narrative* Reuben Burns [...] in patient record. Reuben Burns MSN, JENNYFER, PMHNP-[facility] [address] [place], [place] Please excuse any errors in grammar or translation related to this dictation. Voice recognition software was utilized to prepare this document. documented in this [facility] Work Phone: [phone] 540-871007-01-2025 Instructions* Patient Instructions* JENNYFER Garsia - 12/07/2024 [...] Dr. Wolf as scheduled documented in this encounterUnThe Christ Hospital Work Phone: 1(859) 293-657707-01-2025 Miscellaneous Notes* Addendum Note - JENNYFER Garsia - 12/07/2024 3:00 PM EDTAddended by: REUBEN BURNS on: 12/08/2024 02:08 PM Modules accepted: Orders documented in this encounterUnThe Christ Hospital Work Phone: 1(152) 121-358607-01-2025 Note* Addendum Note - ARGELIA Garsia CNP - 12/07/2024 3:00 PM EDTAddended by: REUBEN BURNS on: 12/08/2024 02:08 PM Modules accepted: Orders [facility] Work Phone: 1([phone]) 231-185311-08-2024 History of Present illness Narrative* Michel Wolf MD - 04/16/2024 1:30 PM EST [...] exam, discussion and plan. documented in this [facility] Work Phone: 1(271) 634-293811-08-2024 Instructions* Patient Instructions* Sherin Mendez LPN - [...] 9 month follow up documented in this [facility] Work Phone: 1(306) 351-295802-09-2024 Evaluation note* Encounter Date Diagnosis Assessment Notes Treatment Notes Treatment Clinical Notes Jul, PMR (polymyalgia rheumatica) (IC D-10 - M35.3) [employer] Other 02-06-2024 Evaluation note* Encounter Date Diagnosis Assessment Notes Treatment Notes Treatment Clinical Notes Jul, PMR (polymyalgia rheumatica) (IC D-10 - M35.3) [employer] Other 02-01-2024 Evaluation note* Encounter Date Diagnosis Assessment Notes Treatment Notes Treatment Clinical Notes Jul, Hypothyroidism (ICD-10 - E03.9) [facility] Other 01-29-2024 Evaluation note* Encounter Date Diagnosis Assessment Notes Treatment Notes Treatment Clinical Notes Jun, Hypothyroidism (ICD-10 - E03.9) Jun,Hyperthyroidism (ICD-10 - E05.90) [employer] Other 01-26-2024 Evaluation note* Encounter Date Diagnosis [...] medications in combination with eachother. 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 [...] requires sooner she is welcome to call. [facility] Other 01-11-2024 Evaluation note* Encounter Date Diagnosis Assessment Notes Treatment Notes Treatment Clinical Notes Jun, PMR (polymyalgia rheumatica) ( D-10 - M35.3) [employer] Other 01-11-2024 History of Present illness Narrative* [...] is being tapered gradually Michel Wolf MD, [facility] Review of Systems [...] of Michel Wolf MD. documented in this encounterOhio State East Hospital Work Phone: 1(549) 394-861601-11-2024 Instructions* Patient Instructions* Yevgeniy Cortez MA - [...] time of your visit. documented in this encounterOhio State East Hospital Work Phone: 1(768) 120-315112-22-2023 Evaluation note* Encounter Date Diagnosis Assessment Notes [...] recommend the patient get the RSV vaccine. [employer] Other 12-20-2023 Evaluation note* Encounter Date Diagnosis Assessment Notes Treatment Notes Treatment Clinical Notes May, Hypertension (ICD-10 - I10) May,Hypothyroidism (ICD-10 - E03.9) [employer] Other 11-10-2023 Evaluation note* Encounter Date Diagnosis Assessment Notes Treatment Notes Treatment Clinical Notes Apr, PMR (polymyalgia rheumatica) (IC D-10 - M35.3) [facility] Other 09-22-2023 Evaluation note* Encounter Date Diagnosis Assessment Notes Treatment Notes Treatment Clinical Notes Feb, PMR (polymyalgia rheumatica) (IC D-10 - M35.3) She was encouraged to take 2.5mg daily. Patient is agreeable. Feb,Hypertension (ICD-10 - I10) Blood pressure is satisfactory, she is to follow with cardiology as scheduled. [facility] Other 08-21-2023 Evaluation note* Encounter Date Diagnosis Assessment Notes Treatment Notes Treatment Clinical Notes Jan, Hypertension (ICD-10 - I10) [facility] Other 06-30-2023 Evaluation note* Encounter Date Diagnosis [...] [facility] She will [facility] Dr. Wolf in three weeks therefore was advised to make sure she discusses the swelling with him and see what he would like to do. Patient is agreeable. [facility] Other 04-14-2023 Evaluation note* Encounter Date Diagnosis [...] tablets daily. We will continue to monitor. [facility] Other 03-08-2023 Evaluation note* Encounter Date Diagnosis Assessment Notes Treatment Notes Treatment Clinical Notes Aug, PMR (polymyalgia rheumatica) (IC D-10 - M35.3) [facility] Other 02-13-2023 Evaluation note* Encounter Date Diagnosis [...] states she has an upcoming appointment with [facility] specialist and she will discuss making medication changes at that time. [facility] Other 11-09-2022 Evaluation note* Encounter Date Diagnosis [...] she can cut Apr,Hyperlipidemia (ICD-10 - E78.5) [facility] Other 11-02-2022 Evaluation note* Encounter Date Diagnosis Assessment Notes Treatment Notes Treatment Clinical Notes Apr, PMR (polymyalgia rheumatica) (IC D-10 - M35.3) [facility] Other 10-26-2022 Evaluation note* Encounter Date Diagnosis Assessment Notes Treatment Notes Treatment Clinical Notes Mar, Lumbar back pain (ICD-10 - M54.5 0) [facility] Other 09-20-2022 Evaluation note* Encounter Date Diagnosis Assessment Notes Treatment Notes Treatment Clinical Notes Feb, Elevated liver function tests (I CD-10 - R79.89) [facility] Other 09-16-2022 Evaluation note* Encounter Date Diagnosis Assessment Notes Treatment Notes Treatment Clinical Notes Feb, Acute pain of left shoulder (ICD -10 - M25.512) [facility] report reviewed from 02/20/22 . The [...] pain (ICD-10 - R10.13) The patient advised [place] could be causing her GI upset , [...] month Boniva at her next office visit. [facility] Other 09-08-2022 Evaluation note* Encounter Date Diagnosis [...] (ICD-10 - M85.80) Noted on Lumbar x-ray. [facility] Other 08-05-2022 Evaluation note* Encounter Date Diagnosis Assessment Notes Treatment Notes Treatment Clinical Notes Jan, COVID-19 (ICD-10 - U07.1) [facility] Other 08-05-2022 Evaluation note* Encounter Date Diagnosis Assessment Notes Treatment Notes Treatment Clinical Notes Jan, Cough (ICD-10 - R05.9) In house covid test is positive. Treatment plan discussed in TE. [facility] Other 07-14-2022 Evaluation note* Encounter Date Diagnosis Assessment Notes Treatment Notes Treatment Clinical Notes Dec, PMR (polymyalgia rheumatica) (IC D-10 - M35.3) [facility] Other 05-27-2022 Evaluation note* Encounter Date Diagnosis Assessment Notes Treatment Notes Treatment Clinical Notes October, PMR (polymyalgia rheumatica) (IC D-10 - M35.3) [facility] Other 04-25-2022 Evaluation note* Encounter Date Diagnosis [...] The patient encourged to continue following with [facility] specialist annually in December as scheduled. I did forward a copy of most current blood work results . [facility] Other 04-04-2022 Evaluation note* Encounter Date Diagnosis Assessment Notes Treatment Notes Treatment Clinical Notes Sep, PMR (polymyalgia rheumatica) (IC D-10 - M35.3) Sep,Hypertension (ICD-10 - I10) [facility] Other 02-24-2022 Evaluation note* Encounter Date Diagnosis [...] if needed. We will continue to montior. [facility] Other 02-16-2022 Evaluation note* Encounter Date Diagnosis Assessment Notes Treatment Notes Treatment Clinical Notes Jul, PMR (polymyalgia rheumatica) (IC D-10 - M35.3) [facility] Other 11-30-2021 Evaluation note* Encounter Date Diagnosis Assessment Notes Treatment Notes Treatment Clinical Notes Apr, PMR (polymyalgia rheumatica) (IC D-10 - M35.3) [facility] Other 11-18-2021 Evaluation note* Encounter Date Diagnosis [...] Apr,Hypothyroidism (ICD-10 - E03.9) Blood work ordered. [facility] Other [id number] History general Narrative - Reported* Type Description Date Medical History [facility] [id number], 02-15-15-mammogram-negativeMedical History 01/20121164-oidqxnqofds-sappie, repeat in 3 yrsMedical Xosogam60/2017- colonoscopy- normalMedical Historyf/u with cardiology NOHCMedical HistoryECHO 09/2016Surgical HistoryAppendectomySurgical HistoryGallbladder RemovalSurgical HistoryOvarian Cyst RemovalSurgical HistoryCoccyx repairSurgical HistoryCataracts Bilateral EyesSurgical Historythyroidectomy Dr. Forbes10/14/2019Hospitalization History Childbirth [id number] HistorySee Above [facility] Other Evaluation noteNo InformationNortNo [employer] Other Evaluation note* Diagnosis Aortic valve stenosis, etiology of cardiac valve disease unspecified Essential hypertension Unspecified essential hypertension Hyperlipidemia, unspecified hyperlipidemia type Never smoked any substance documented in this encounter [facility] Work Phone: Evaluation note* Diagnosis Aortic valve stenosis, etiology of cardiac valve disease unspecified- Primary Essential hypertension Unspecified essential hypertension Hyperlipidemia, unspecified hyperlipidemia type Never smoked any substance BMI 26.0-26.9,adult Hypothyroidism, unspecified type documented in this encounter [facility] Work Phone: Evaluation note* Diagnosis Nonrheumatic aortic valve stenosis Aortic valve stenosis, etiology of cardiac valve disease unspecified documented in this encounter [facility] Work Phone: Evaluation note* Diagnosis 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- Primary BMI 26.0-26.9,adult documented in this encounter [facility] Work Phone: Evaluation note* Diagnosis Aortic valve stenosis, etiology of cardiac valve disease unspecified documented in this encounter [facility] Work Phone: Evaluation note* Diagnosis Nonrheumatic aortic valve stenosis- Primary 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 Hyperlipidemia, unspecified hyperlipidemia type PMR (polymyalgia rheumatica) (Multi) Polymyalgia rheumatica Hypothyroidism, unspecified type BMI 27.0-27.9,adult Never smoked any substance Overweight documented in this encounter [facility] Work Phone: Reason for visit Narrative* CV Imaging (Routine) - AuthorizedSpecialtyDiagnoses / ProceduresReferred By ContactReferred To ContactCardiology Diagnoses Aortic valve stenosis, etiology of cardiac valve disease unspecified Procedures Transthoracic Echo Complete [place] ECHO TTHRC R-T 2D W/WOM-MODE COMPL SPEC&COLR D Michel Wolf MD [address] [facility] [address], [address] [address] Phone: tel: fax: Referral IDStatusReasonStart DateExpiration DateVisits RequestedVisits [id number] Perform Procedure [facility] Work Phone: Chief Complaint * LAVONNE [...] being tapered gradually * Michel Wolf MD, [facility] * LAVONNE VILLATORO [...] tapered gradually * Michel Wolf MD, FACC Family History No Family [...] PMR (polymyalgia rhe umatica) (M35.3) Referral Organization [facility] Family Medicin e Hubbard Referring Provider First Name Suhas Referring Provider Last Name Tami Referring Provider Specialty Family Prac sukhjinder Referred Organization [facility] Referred Address [address] [place], [place],[address] Referred Provider Specialty Rheumatology Referral Priority Routine General Notes Zaida Tinsley 10:11:01 AM >received today, completed CC referral form and faxed to their referring physicians department. Patient will be contacted by the CC to schedule her appointment. SpecialtyDiagnoses / ProceduresReferred By ContactReferred To ContactCardiology Diagnoses Aortic valve stenosis, etiology of cardiac valve disease unspecified Procedures Transthoracic Echo (TTE) Complete [place] ECHO TTHRC R-T 2D W/WOM-MODE COMPL SPEC&COLR D Michel Wolf MD [address] [place] [address] 2, Nishant [address] [place] [address] Referral IDStatusReasonStarnold DateExpiration DateVisits RequestedVisits [id number] Review Perform Procedure [id number] / ProceduresReferred By ContactReferred To ContactCardiology Diagnoses Aortic valve stenosis, etiology of cardiac valve disease unspecified Procedures Follow Up In Cardiology Michel Wolf MD [address] [place] [address] 2, [address] [address] Michel Wolf MD [address] [facility] [address], [address] [address] Ref[facility] DateExpiration DateVisits RequestedVisits [id number] Additional Source Comments REASON FOR VISIT (unrecogniz ed section and content) ReasonCommentsFollow-up9 month, echocardiogram resultsSpecialtyDiagnoses / ProceduresReferred By ContactReferred To ContactCardiology Diagnoses Aortic valve stenosis, etiology of cardiac valve disease unspecified Procedures Follow Up In Cardiology Michel Wolf MD [address] [place] [address], [address] [address] Phone: tel: fax: Michel Wolf MD [address] [place] [address], [place] [id number] Phone: tel: fax: Referral IDStatusReasonStart DateExpiration DateVisits RequestedVisits [id number] CommentsFollow-lm3qIeaxhrpv IDStatusReasonStart DateExpiration DateVisits RequestedVisits [id number] Diagnoses / ProceduresReferred By ContactReferred To ContactCardiology Diagnoses Nonrheumatic aortic valve stenosis Procedures Transthoracic Echo (TTE) Complete [place] ECHO TRANSTHORC R-T 2D W/WO M-MODE REC F-UP/LMTD W[place] DOP ECHOCARD COLOR FLOW VELOCITY MAPPING WV DOP ECHOCARD PULSE WAVE W/SPECTRAL F-UP/LMTD STD Michel Wolf MD [address] [place] [id number] Referral IDStatusReasonStart DateExpiration DateVisits RequestedVisits [id number] Perform Procedure /[id number] ClearancePOC for spinal cord stimulator, scheduled 12.13.[address] Weston. INFORMATION SOURCE (unrecogn ized section and content) DATE CREATED AUTHOR 03/06/2022 [facility] DATE CREATED AUTHOR AUTHOR'S ORGANIZ ATION 12/25/2022 [facility] DATE CREATED AUTHOR AUTHOR'S ORGANIZ ATION 12/25/2022 [employer] DATE CREATED AUTHOR AUTHOR'S ORGANIZ ATION 03/03/2023 [facility] DATE CREATED AUTHOR AUTHOR'S ORGANIZ ATION 07/29/2024 [facility] DATE CREATED AUTHOR AUTHOR'S ORGANIZ ATION 12/25/2024 [facility] DATE CREATED AUTHOR AUTHOR'S ORGANIZ ATION 01/16/2025 [facility] DATE CREATED AUTHOR AUTHOR'S ORGANIZ ATION 02/23/2025 [facility] Care Teams (unrecognized sec tion and content) Team MemberRelationshipSpecialtyStart DateEnd Date Suhas Garrett DO PCP - General06/09/99Team MemberRelationshipSpecialtyStart DateEnd Date Suhas Garrett DO [address] [place] [address] PCP - [facility] Medicine01/30/24Team MemberRelationshipSpecialtyStart DateEnd Date Suhas Garrett DO [address] [place] [address] [facility]/30/24Team MemberRelationshipSpecialtyStart DateEnd Date Suhas Garrett DO [address] [place] [address] PCP - GeneralFamily Medicine01/30/24Team MemberRelationshipSpecialtyStart DateEnd Date Suhas Garrett DO [address] [place] [address] PCP - GeneralFamily Medicine01/30/24Team MemberRelationshipSpecialtyStart DateEnd Date Suhas Garrett DO [address] [place] [address] PCP - GeneralFamily Medicine01/30/24 FOR RECORDS PERTAINING [...] BASED ON THE PRIMARY CLINICAL RECORDS. [facility]. provides no warranty or guarantee of the accuracy or completeness of information in this document.
--- NOTE | 2025-04-18 15:38 | PM.CN ---
Consult Note: HPI Data of Consult Patient: known to practice within the last 3 years Consult date: 04/18/25 Requesting Physician: Gloria Weston MD Primary Care Provider: Suhas Arizmendi DO Consult Narrative Reason for consult: low back, leg pain Narrative: 89yof who presents for assessment. notes good improvement after recent spinal cord stim implant. notes itchiness around incision sites. continues to use gabapentin. denies adverse med side effects. cc:: CC: Gloria Weston MD Review of Systems ROS Status of ROS 10 or more systems reviewed and unremarkable except as noted in history and below [facility] Medical History 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 ?I10 - Essential (primary) hypertension (ICD-10) Lumbar stenosis with neurogenic claudication ?M48.062 - Spinal stenosis, lumbar region with neurogenic claudication (ICD-10) Back pain ?M54.9 - Dorsalgia, unspecified (ICD-10) Shoulder pain ?M25.519 - Pain in unspecified shoulder (ICD-10) Seizures (1987) ?R56.9 - Unspecified convulsions (ICD-10) Heartburn ?R12 - Heartburn (ICD-10) Cataract ?H26.9 - Unspecified cataract (ICD-10) Hepatic lesion ?K76.9 - Liver disease, unspecified (ICD-10) Insomnia ?G47.00 - Insomnia, unspecified (ICD-10) Lung density on x-ray ?J98.4 - Other disorders of lung (ICD-10) Multinodular thyroid ?E04.2 - Nontoxic multinodular goiter (ICD-10) Hypothyroidism (acquired) ?E03.9 - Hypothyroidism, unspecified (ICD-10) Hyperlipidemia ?E78.5 - Hyperlipidemia, unspecified (ICD-10) Aortic stenosis ?I35.0 - Nonrheumatic aortic (valve) stenosis (ICD-10) Polymyalgia rheumatica ?M35.3 - Polymyalgia rheumatica (ICD-10) Hyperthyroidism ?E05.90 - Thyrotoxicosis, unspecified without thyrotoxic crisis or storm (ICD-10) Heart murmur ?R01.1 - Cardiac murmur, unspecified (ICD-10) HTN (hypertension) ?I10 - Essential (primary) hypertension (ICD-10) Surgical History S/P epidural steroid injection ?Z92.241 - Personal history of systemic steroid therapy (ICD-10) History of cataract extraction with lens replacement H/O excision of mass ?Z98.890 - Other specified postprocedural states (ICD-10) H/O colonoscopy ?Z98.890 - Other specified postprocedural states (ICD-10) 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 - Postprocedural hypothyroidism (ICD-10) Hx of cholecystectomy ?Z90.49 - Acquired absence of other specified parts of digestive tract (ICD-10) History of ovarian cystectomy ?Z98.890 - Other specified postprocedural states (ICD-10) ?Z87.42 - Personal history of other diseases of the female genital tract (ICD-10) History of appendectomy ?Z90.49 - Acquired absence of other specified parts of digestive tract (ICD-10) Family History Other Family history of DVT Family history of aneurysm Family history of cancer Family history of diabetes mellitus Family history of heart disease Social History Within the past year, how often did you have a drink containing alcohol: monthly or less Smoking status: Never smoker Non-prescribed substance use: denies use Highest level of school completed/degree received: high school graduate Little interest or pleasure in doing things: not at all Feeling down, depressed, or hopeless: not at all Meds Home Medications and Allergies Home Medications ?Medication ?Instructions ?Recorded ?Confirmed ?Type aspirin 81 mg capsule 81 mg PO DAILY 08/25/23 04/10/25 History carvedilol 6.25 mg tablet 6.25 mg PO Q12H 08/25/23 04/10/25 History levothyroxine 100 mcg tablet 100 mcg PO DAILY 08/25/23 04/10/25 History acetaminophen 650 mg 1,300 mg PO Q12H PRN pain 11/29/24 04/10/25 History tablet,extended release amlodipine 5 mg tablet 5 mg PO DAILY 11/29/24 04/10/25 History losartan 100 1 tab PO DAILY 11/29/24 04/10/25 History mg-hydrochlorothiazide 25 mg tablet multivitamin (Daily Multi-Vitamin 1 tab PO DAILY 11/29/24 04/10/25 History tablet) gabapentin 300 mg capsule 300 mg PO Q8H 02/08/25 04/10/25 History baclofen 10 mg tablet See Rx Instructions .Route 04/06/25 04/10/25 Rx .COMPLEX PRN muscle spasm #90 tabs polyethylene glycol 3350 17 17 g PO DAILY 4 days #68 grams 04/09/25 04/10/25 Rx gram/dose oral powder (Miralax) alprazolam 0.5 mg tablet (Xanax) 0.5 mg PO BID PRN anxiety #14 tabs 04/10/25 Rx prednisone 2.5 mg tablet 2.5 mg PO DAILY 04/10/25 04/10/25 History Allergies Allergy/AdvReac Type Severity Reaction Status Date / Time amoxicillin Allergy Mild Rash Verified 04/09/25 05:40 divalproex sodium (From Allergy Unknown hair loss Verified 04/09/25 05:40 Depakote) hydrocodone Allergy Unknown Rash Verified 04/09/25 05:40 phenytoin (From Dilantin) Allergy Unknown Rash Verified 04/09/25 05:40 alendronate sodium (From AdvReac eye pain Verified 04/09/25 05:40 Fosamax) Exam Narrative Exam Narrative: Psych-alert and oriented x 3. Attentive and appropriate, constitutionally normal, displays normal mood and affect per situation.? There are no obvious deficits in memory, reasoning, or intellect.? Skin-no obvious rashes, bruising, erythema noted to the patient's area of pain. Extremities- extremities are warm with minimal edema and palpable pulses. Lumbar-no significant tenderness to palpation noted in the lumbar spine and paraspinal musculature.? Pain is elicited with extension, and lateral rotation of the lumbar spine. Range of motion is slightly diminished with these motions due to pain. Coordination remains intact.? Gait remains non-antalgic. Assessment and Plan Assessment and Plan (1) Lumbar stenosis with neurogenic claudication: Plan 89yof who presents for assessment. she is improving well after her recent spinal cord stim implant. endorses >50% relief. spinal cord stim settings adjusted today with parts counter representative. incisions evaluated, appear clean, dry, and intact. meds reviewed, recommended that she try scaling back by one daily gabapentin tablet each week to see how she responds. she expressed understanding. follow up in 1 month.
== END 2025-04-18 14:09 | disposition home or self-care (01) ==
LOC: PM 14:09
PROVIDERS: PCP Family Medicine; Visit Provider Anesthesiology
DX: M48.062 Spinal stenosis, lumbar region with neurogenic claudication (principal)
CPT/HCPCS: G0463

== ENCOUNTER 2025-05-16 12:36 | Outpatient (OUT) | payer MEDICARE, OTHER, SELFPAY ==
--- OUTSIDE RECORDS SUMMARY | 2025-05-16 12:40 | XMS_ITS | CCD ---
Author Organization [facility] Care Team Providers Care Top Lift Compressor Name Role Phone Suhas Garrett Unavailable Suhas [...] Provider Suhas Garrett DO Primary Care Provider [phone] Suhas Garrett Primary Care Unavailable Suhas Garrett [...] SUHAS GARRETT Primary Care Unavailable Trista FRIEDMAN, Andrius Gautam Attending Unavailable Giedraitis , Andrius Vytgeorge Attending Unavailable Giedraitis , Andrius Vytautmarshal Attending Unavailable Giedraitis , Andrius Vytautmarshal Attending Unavailable Giedraitis , Andrius Vytautmarshal Attending Unavailable Allergies Allergy ClassificationReported Allergen(s)Allergy TypeDate of OnsetReaction(s) Facility (20 sources)Alendronate; Translations: [Fosamax]Drug Ulnjlwb88-08-5571MsesdvoMount [facility]el [facility] Repository (20 sources)Amoxicillin; Translations: [amoxicillin]Drug Agdmgjs51-56-9710epdpi [place] [facility] Other (20 sources)Phenytoin; Translations: [Dilantin CAPS]Drug Czgsbxk70-24-0256Mzoa [place] [facility] Other (20 sources)Valproate; Translations: [Depakote ER TB24]Drug AllergyUnknoJacobi Medical Center [facility] Other (1 source)AlendronateDrug [facility]ergyC[facility]ository (1 source)AmoxicillinDrug AllergyC[facility] Repository (1 source)PhenytoinDrug AllergyC[facility] Repository (1 source)ValproateDrug AllergyThe [facility] Repository (20 sources)Acetaminophen / HYDROcodoneDrug Allergyelevated liver enzymesNortDepartment of Veterans Affairs [facility] Other (6 sources)AlendronateDrug Ztniiwb42-33-3408AnoreydHolmes County [facility] (8 sources)HYDROcodone; Translations: [HYDROCODONE]Drug Cqfupww75-11-6758XYRiverside Methodist Hospital Work Phone: (8 sources)Valproate; Translations: [VALPROIC ACID]Drug Gqbejiq37-61-2830LfkihzvDelaware County Hospital Work Phone: (1 source)AcetaminophenDrug Qruodwg24-23-0591RiiawegdeAshtabula County Medical Center Repository (1 source)AlendronateDrug Zdbcost72-91-9251EeynqhwdqAshtabula County Medical Center Repository (1 source)AmoxicillinDrug Qnwqamj76-78-5769ZpvfwdhmfAshtabula County Medical Center Repository (1 source)HYDROcodoneDrug Jubhqkq34-55-5509LvrcfuivqAshtabula County Medical Center Repository (1 source)PhenytoinDrug Aemrhnw19-16-7020AozbbjpbjAshtabula County Medical Center Repository (1 source)ValproateDrug Fsetjoh80-23-8482NctlstdqwAshtabula County Medical Center Repository (5 sources)Valproate; Translations: [DIVALPROEX]Drug Rfbteba74-50-1655BudiaSelect Medical Specialty [facility] Work Phone: Medications Current Medications MedicationDrug Class(es)DatesSig [...] mg oral tablet (20 sources)Nonsteroidal Anti-inflammatory DrugStart: 73-64-9473uykx 1 tablet by mouth twice daily at mealtime as neededIbuprofen 600 MG 1 tablet with food or milk as needed Orally Twice a day as needed with food Jan, ActiveStart: 30-81-8056vaek 1 tablet by mouth three times daily at mealtime as needed Ibuprofen 600 MG 1 tablet with food or milk as needed Orally TID PRN with food Jan, Not-Takinglevothyroxine sodium 0.1 mg oral tablet (20 sources)l-ThyroxineStart: 55-08-3690qvzc 1 tablet by mouth once daily levothyroxine [...] ActivepredniSONE 10 mg oral tablet (20 sources)Start: 58-44-3034jcpk 1 tablet by mouth once dailypredniSONE (Deltasone) 10 mg tablet Take 1 tablet (10 mg) by mouth once daily. 12/09/2024 ActiveStart: 56-73-4861lmie 2 tablets by mouth once dailypredniSONE 10 MG 2 tablets x 7 days, 1 tablet x 7 days, then 1/2 tablet or 5mg daily thereafter Orally as directed Jun, ActiveStart: 20-71-0216rkud 1 tablet by mouth every twenty-four hourspredniSONE 20 MG 1 tablet Orally Once a day for 10 days Apr, ActiveStart: 94-53-9682xhdp 1 tablet by mouth every other day predniSONE 2.5 MG 1 tablet Orally alternating every other day with 5mg Nov, ActiveStart: 35-71-3260dihv 1 tablet by mouth every twenty-four hours predniSONE 2.5 MG 1 tablet Orally Once a day Apr, ActiveStart: 82-19-1835tpef 1 tablet by mouth every twenty-four hourspredniSONE 10 MG 1 tablet Orally Once a day for 90 days Apr, ActiveStart: 22-74-7075rsgt 1 tablet by mouth every twenty-four hourspredniSONE 20 MG 1 tablet Orally Once a day for 30 day(s) Apr, ActiveStart: 00-13-6221xahfpkWBJB 20 MG 1 tablet with food or milk Orally 1 tab twice a day x 5 days , 1 tab every day x 5days for 10 days Feb, ActiveStart: 66-87-1796jmuw 1 tablet by mouth at mealtime, then take 1 tablet by mouth twice daily, then take 1 tablet by mouth once dailypredniSONE 20 MG 1 tablet with food or milk Orally 1 tab twice a day x 5 days , 1 tab once a day X 5 days Jan, ActiveStart: 82-13-2496usbq 1 tablet by mouth every other daypredniSONE 5 MG 1 tablet Orally alternating every other day with 2.5mg Apr, ActiveStart: 02-22-2020 End: 38-05-9691jyykchZJTX (Deltasone) 5 mg tablet Take 1 tablet (5 mg) by mouth once daily. Alternating 2.5 tab 11/02/2021 01/14/2025 Discontinued (Dose adjustment)Start: 65-42-1335kend 1 tablet by mouth every twenty-four hours predniSONE 2.5 MG 1 tablet Orally Once a day Feb, ActiveStart: 34-50-9304fzcz 1.5 tablets by mouth every twenty-four hourspredniSONE 5 MG 1.5 tablets Orally Once a day Feb, ActivetraMADol hydrochloride 50 mg oral tablet (5 sources)Opioid AgonistStart: 53-47-0168nrjp 1 tablet by mouth every eight hourstraMADol HCl 50 MG 1 tablet as needed Orally tid Jun, ActiveStart: 86-32-0226fiav 1 tablet by mouth every twenty-four hourstraMADol HCl 50 MG 1 tablet as needed Orally Once a day Jun, ActiveTylenol Arthritis Pain 650 MG (20 sources)Tylenol Arthritis Pain 650 MG as directed Orally Not-TakingTylenol Arthritis Pain 650 MG as directed Orally Active Completed/Discontinued Medications MedicationDrug Class(es)DatesSig (Normalized)Sig (Original)amLODIPine 10 mg oral tablet (20 sources)Dihydropyridine Calcium Channel BlockerStart: 47-67-5719hzcs 1 tablet by mouth every twenty-four hoursNorvasc 5 MG 1 tablet Orally Once a day for 90 day(s) May, ActiveStart: 06-03-2017 End: 31-50-9541ikey 1 tablet by mouth once dailyamLODIPine (Norvasc) 10 mg tablet Take 1 tablet (10 mg) by mouth once daily. 12/13/2021 12/07/2024 D iscontinued (Dose adjustment)calcium carbonate 1500 mg oral tablet (11 sources) End: 12-53-4557ajmk 1 tablet by mouth once dailycalcium carbonate [...] 24-Dec-2022 DO ActiveFish Oils (4 sources) End: 60-72-3332qwun 1 capsule by mouth once dailyomega-3 (Fish [...] Not-Takingmelatonin 5 mg oral tablet (20 sources)Start: 72-30-2946ztbg 1 tablet by mouth every twenty-four hours Melatonin 5 MG 1 tablet in the evening Orally Once a day Sep, Not-Taking/PRNmethylPREDNISolone (20 sources)CorticosteroidStart: 73-90-2364UQHO-MEDROL 41 - 125 mg Jan, 125 mgMulti Vitamin Oral Tablet (7 sources)take 1 tablet by mouth once dailyMulti Vitamin Oral Tablet TAKE 1 TABLET DAILY. Quantity: 0 Refills: 0 Ordered: 13-Dec-2021 DO ActiveOmega 3 500 CAPS (4 sources)[place] 3 500 CAPS TAKE 1 CAPSULE Daily Quantity: 0 Refills: 0 Ordered: 13-Dec-2021 DO Activeoxycodone HCl/acetaminophen (OXYCODONE-ACETAMINOPHEN ORAL) (2 sources)Start: 02-23-2024 End: 17-31-8447hyjgmaplj HCl/acetaminophen (OXYCODONE-ACETAMINOPHEN ORAL) Take by mouth. 02/23/2024 12/07/2024 Discontinued (Therapy completed)Start: 11-88-3603dhficktrn HCl/acetaminophen (OXYCODONE-ACETAMINOPHEN ORAL) Take by mouth. 02/23/2024 ActivetraZODone hydrochloride 50 mg oral tablet (16 sources)Serotonin Reuptake InhibitorStart: 56-28-2859bdwy 1 tablet by mouth every twenty-four hourstraZODone HCl 50 MG 1 tablet at bedtime as needed Orally Once a day prn Jul, Not-Taking/PRN Problems Active Problems Problem ClassificationProblemDateDocumented DateEpisodic/ChronicAbdominal pain (20 sources)Generalized abdominal pain; Translations: [Generalized abdominal pain]Onset: 02-22-2022 Resolved: 64-18-9814EjeawzhkKuimghshfzgymm/social admission (20 sources)Advance directive discussed with patient; Translations: [Other specified counseling]EpisodicCoronary atherosclerosis and other heart disease (20 sources)Coronary arteriosclerosis; 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 tangirnaq coronary artery without angina pectoris]Onset: 09-03-2023 ChronicDisorders of lipid metabolism (20 sources)Hyperlipidemia; Translations: [Hyperlipidemia, unspecified]Onset: 04-26-2021 Resolved: 63-08-3338OmygmwwCqmciuaeo hypertension (20 sources)Hypertensive disorder; Translations: [Essential (primary) hypertension]Onset: 09-10-2021 Resolved: 14-41-4803BlpvbfmAafjo valve disorders (20 sources)Aortic valve stenosis; Translations: [Aortic valve disorders]Onset: 06-34-8976GxbugfvTcmowtflmuh deficiencies (1 source)Vitamin D deficiency, unspecified; Translations: [Vitamin D deficiency, unspecified]Onset: 34-04-8149AssoekqHnqdenuumleq (1 source)Osteoporosis; Translations: [Age-related osteoporosis without current pathological fracture]ChronicOther aftercare (1 source)Other planning associate (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; Translations: [OTH NURSING HOME CURRENT DRUG THERAPY]Onset: 70-69-6540YvzuetvoGdwkx bone disease and musculoskeletal deformities (20 sources)Pain of left shoulder blade; Translations: [Other specified disorders of bone, shoulder]EpisodicOther bone disease and musculoskeletal deformities (20 sources)Osteopenia; Translations: [Other specified disorders of bone density and structure, multiple sites]EpisodicOther circulatory disease (20 sources)Cardiovascular symptoms; Translations: [Other specified symptoms and signs involving the circulatory and respiratory systems]EpisodicOther connective tissue disease (20 sources)Polymyalgia rheumatica; Translations: [Polymyalgia rheumatica]Onset: 004720-30-0418EazsbawUjccw connective tissue disease (20 sources)Polymyalgia rheumatica; Translations: [Polymyalgia rheumatica]Onset: 04-26-2021 Resolved: 90-74-7588EjrxikoKdptq connective tissue disease (1 source)Other muscle spasm; Translations: [OTHER MUSCLE SPASM]Onset: 09-60-0700DsjxgzevOuqtj liver diseases (20 sources)Disease of liver; Translations: [Liver disease, unspecified]Chronic Other lower respiratory disease (20 sources)Radiologic increased density of lung; Translations: [Other disorders of lung]EpisodicOther non-epithelial cancer of skin (20 sources)Basal cell carcinoma of skin; Translations: [Basal cell carcinoma of skin, unspecified]EpisodicOther non-traumatic joint disorders (6 sources)Pain in left shoulder; Translations: [PAIN IN LEFT SHOULDER]Onset: 02-20-2022 Resolved: 42-80-4432MicfgxnkBdxhp non-traumatic joint disorders (20 sources)Shoulder pain; Translations: [Pain in left shoulder]EpisodicOther nutritional; endocrine; and metabolic disorders (14 sources)Overweight in adulthood with body mass index of 25 or more but less than 30; Translations: [Overweight]Onset: 736521-30-2957DssssrloOlhih nutritional; endocrine; and metabolic disorders (1 source)Overweight; Translations: [Overweight]61-95-8993NkuucrvyRaiid nutritional; endocrine; and metabolic disorders (2 sources)Body mass index (BMI) 27.0-27.9, adult; Translations: [Body mass index (BMI) 27.0-27.9, adult]Onset: 26-73-9735SgfsxejfNcyiy screening for suspected conditions (not mental disorders or infectious disease) (20 sources)Other specified abnormal findings of blood chemistry; Translations: [Elevated liver function tests]Onset: 02-26-2022 Resolved: 51-89-3009BuiqfddgYywyhhtx codes; unclassified (20 sources)Insomnia; Translations: [Insomnia, unspecified]EpisodicResidual codes; unclassified (20 sources)Family history of malignant neoplasm of gastrointestinal tract; Translations: [Family history of malignant neoplasm of digestive organs]Episodic Residual codes; unclassified (20 sources)Difficulty sleeping ; Translations: [Sleep disorder, unspecified] EpisodicResidual codes; unclassified (3 sources)Insomnia, unspecifiedOnset: 10-01-2021 Resolved: 29-75-8795DrijbbadJrgnlkpp codes; unclassified (9 sources)Never smoked any substance; Translations: [Other specified health status]Onset: 391906-50-6452MziguaypRxkkbyfc codes; unclassified (2 sources)Other specified health status; Translations: [Other specified health status]Onset: 79-00-7131KyiftoanUqavxcndbye; intervertebral disc disorders; other back problems (13 sources)Low back pain; Translations: [Lumbar back pain]EpisodicSprains and strains (20 sources)Strain of muscle and/or tendon of lower leg; Translations: [Strain of unspecified muscle and tendonat ankle and foot level, left foot, subsequent encounter]EpisodicThyroid disorders (20 sources)Hypothyroidism; Translations: [Hypothyroidism, unspecified]Onset: 04-26-2021 Resolved: 21-03-6021Qknjnls Past or Other Problems Problem ClassificationProblemDateDocumented DateEpisodic/ChronicConditions associated with dizziness or vertigo (2 sources)Dizziness and giddiness; Translations: [Dizziness and giddiness] Onset: 02-14-2022 Resolved: 20-88-3955FjccliewAxzjq valve disorders (20 sources)Heart murmur; Translations: [Cardiac murmur, unspecified]Onset: 10-01-2021 Resolved: 36-14-9829SsqwcihzUkzoa acquired deformities (1 source)Spondylolisthesis, lumbar regionOnset: 02-14-2022 Resolved: 81-75-4494AntoayoxMgrnc bone disease and musculoskeletal deformities (1 source)Other specified disorders of bone density and structure, unspecified siteOnset: 02-14-2022 Resolved: 20-17-8691JndxwzdrQsadj bone disease and musculoskeletal deformities (1 source)Other specified disorders of bone, shoulderOnset: 02-22-2022 Resolved: 16-75-3436KtvhngayAzznk bone disease and musculoskeletal deformities (1 source)Other specified disorders of bone density and structure, multiple sitesOnset: 02-22-2022 Resolved: 22-91-4552XpsnxnhsTtiid circulatory disease (20 sources)Carotid bruit; Translations: [Other symptoms involving cardiovascular system]Onset: 06-04-2023 Resolved: 537861-25-3529KrifzmvlLuuuz circulatory disease (1 source)Other specified symptoms and signs involving the circulatory and respiratory systems; Translations:[Other specified symptoms and signs involving the circulatory and respiratory systems]Onset: 64-13-0256ScqxhknzMkbgn liver diseases (1 source)Abnormal levels of other serum enzymes; Translations: [Abnormal levels of other serum enzymes]Onset: 34-51-8054MrixozjaPtgct nutritional; endocrine; and metabolic disorders (2 sources)Body mass index (BMI) 26.0-26.9, adult; Translations: [Body mass index (BMI) 26.0-26.9, adult]Onset: 51-24-3227FszcysgoXzjod skin disorders (1 source)Localized swelling, mass and lump, headOnset: 04-26-2021 Resolved: 09-91-1471KllkqegjXcufbfdg codes; unclassified (1 source)Sleep disorder, unspecifiedOnset: 08-02-2021 Resolved: 60-05-1277EjurgeumPnnlgsik codes; unclassified (1 source)Asymptomatic menopausal stateOnset: 02-14-2022 Resolved: 11-15-9360KabrpiakMexcwuxowmvd (7 sources)Never smoked tobacco; Translations: [Never smoker]Unclassified (1 source)Cough R05.9Onset: 01-11-2022 Resolved: 76-51-9140Bfxwtlnrdudl (3 sources)Lumbar back pain M54.50Onset: 02-14-2022 Resolved: 19-16-7842Msdobogxkava (1 source)History of COVID-19 Z86.16Onset: 02-14-2022 Resolved: 65-82-3370Ijephnqkzftk (10 sources)Lumbar back pain; Translations: [Lumbar back pain]Unclassified (1 source)Vaccine counseling Z71.85Unclassified (6 sources)Onset: 06-19-2023 Resolved: Viral infection (20 sources)Disease caused by 2019-nCoV; Translations: [COVID-19]Onset: 01-11-2022 Resolved: 01-11-2022 Results Test NameValueInterpretationReference RangeFacilityTRANSTHORACIC ECHO (TTE) COMPLETEon 96-93-4395JHKDHBSFRMJVO ECHO (TTE) [address], [address], [place] [address] TRANSTHORACIC ECHOCARDIOGRAM REPORT Patient Name: LAVONNE VILLATORO Reading Physician: [id number] Michel Wolf MD, [facility] Study Date: 12/21/2024 Ordering Provider: [id number] MICHEL WOLF MRN/PID: [id number] Fellow: Nurse: Date of /Age: 3 1935 / 89 years Straw Boss: Sheridan Lemus RDCS, T Gender Assigned at F Additional Staff: : Height: 157.48 cm Admit Date: Weight: 65.77 kg Admission Status: Outpatient BSA / BMI: 1.67 m2 / 26.52 Department Location: [facility] Heart kg/m2 [place] Blood Pressure: 146 /68 mmHg Study Type: TRANSTHORACIC ECHO (TTE) COMPLETE Diagnosis/ICD: Nonrheumatic aortic (valve) stenosis-I35.0 Indication: HTN, Hyperlipidemia, 2/6 Systolic Murmur, Hypothyroid CPT Codes: Echo Complete w Full Doppler-62069 Study Detail: The following Echo studies were [...] AoV Area,Vmax: 0.85 cm (more content not included)...[facility] Transthoracicon 26-92-5858Axamtn Valve Area by Continuity of Peak Velocity0.85 bb2EjqsndrtroThe [facility] Work Phone: [phone] Valve Area by Continuity of VTI0.9 cm2 [facility] Work Phone: [phone] mn xbyd97wrLxHjwbsmqofcThe [facility] Work Phone: [phone] pk ttog38naAbRpdisrrjglThe [facility] Work Phone: [phone] pk vel3.27 m/[facility] Work Phone: [phone] vol index A/L43.4 ml/m7MiwgyzgveyThe [facility] Work Phone: [phone] A4C EF76.9UnThe [facility] Work Phone: [phone] Biplane EF71 %[facility] Work Phone: [phone] EF68 %[facility] Work Phone: [phone] cmUnThe [facility] Work Phone: [phone] diam1.89 cmUnThe [facility] Work Phone: [phone] avg E/e' ratio15.93UnThe [facility] Work Phone: [phone] E/A kptxy3YgrlvuxeyyThe [facility] Work Phone: [phone] free wall pk S'11.98 cm/[facility] Work Phone: [phone] [facility] Work Phone: [phone] annular plane systolic excursion2.4 cm [facility] Work Phone: [address], [address] [place] [address] TRANSTHORACIC ECHOCARDIOGRAM REPORT Patient Name: LAVONNE Bahena Physician: [id number] Michel Wolf MD, [facility] Study Date: 12/21/2024 Ordering Provider: [id number] MICHEL WOLF MRN/PID: [id number] Fellow: Nurse: Date of /Age: 3 1935 / 89 years Straw Boss: Sheridan Lemus RDCS, RVT Gender Assigned at F Additional Staff: : Height: 157.48 cm Admit Date: Weight: 65.77 kg Admission Status: Outpatient BSA / BMI: 1.67 m2 / 26.52 Department Location: [facility] Heart kg/m2 [place] Blood Pressure: 146 /68 mmHg Study Type: TRANSTHORACIC ECHO (TTE) COMPLETE Diagnosis/ICD: Nonrheumatic aortic (valve) stenosis-I35.0 Indication: HTN, Hyperlipidemia, 2/6 Systolic Murmur, Hypothyroid CPT Codes: Echo Complete w Full Doppler-48559 Study Detail: The following Echo studies were [...] content not included)...Michel Kenney MD - 12/21/2024 [facility] [address] [place] [address], [address], [place] [address] TRANSTHORACIC ECHOCARDIOGRAM REPORT Patient Name: LAVONNE VILLATORO Reading Physician: [id number] Michel Wolf MD, [facility] Study Date: 12/21/2024 Ordering Provider: [id number] MICHEL WOLF MRN/PID: [id number] Fellow: Nurse: Date of /Age: 3 1935 / 89 years Straw Boss: Sheridan Lemus RD, T Gender Assigned at F Additional Staff: : Height: 157.48 cm Admit Date: Weight: 65.77 kg Admission Status: Outpatient BSA / BMI: 1.67 m2 / 26.52 Department Location: [facility] kg/m2 [place] Blood Pressure: 146 /68 mmHg Study Type: TRANSTHORACIC ECHO (TTE) COMPLETE Diagnosis/ICD: Nonrheumatic aortic (valve) stenosis-I35.0 Indication: HTN, Hyperlipidemia, 2/6 Systolic Murmur, Hypothyroid CPT Codes: Echo Complete w Full Doppler-11415 Study Detail: The following Echo studies were [...] cm (18-25cm) LVOT VTI: (more content not included)...[facility] Work Phone: UnThe [facility] Work Phone: Complete Blood Count Auto Diffon 23-01-7513Xcifpweif (Bld) [#/Vol]0.1 10*3/uLNormal0.0-0.2[facility] Physician GroupComment on above:Performed By: #### [id number], CMP, TSH3, LIPID, CBC, T4F, ESR #### [place] [address] USABasophils/100 WBC (Bld)1.1 %Normal.[facility] Physician GroupComment on above:Performed By: #### [id number], CMP, TSH3, LIPID, CBC, T4F, ESR #### [place] [address] USAEosinophils (Bld) [#/Vol]0.1 10*3/uLNormal0.0-0.45The [facility] Physician GroupComment on above:Performed By: #### [id number], CMP, TSH3, LIPID, CBC, T4F, ESR #### [place] [address] USAEosinophils/100 WBC (Bld)2.2 %Normal.The [facility] Physician GroupComment on above:Performed By: #### [id number], CMP, TSH3, LIPID, CBC, T4F, ESR #### [place] [address] USAErythrocyte distribution width (RBC) [Ratio]13.5 %Normal 11.9-15.3The [facility] Physician GroupComment on above:Performed By: #### [id number], CMP, TSH3, LIPID, CBC, T4F, ESR #### [place] [address] USAHematocrit (Bld) [Volume fraction]37.9 %Jgisxx12.0-46.4The [facility] Physician GroupComment on above:Performed By: #### [id number], CMP, TSH3, LIPID, CBC, T4F, ESR #### [place] [address] USAHemoglobin (Bld) [Mass/Vol]12.9 g/qVJikhlx02.8-15.4The [facility] Physician GroupComment on above:Performed By: #### [id number], CMP, TSH3, LIPID, CBC, T4F, ESR #### [place] [address] USALymphocytes (Bld) [#/Vol]2.2 10*3/uLNormal1.00-4.8The [facility] Physician GroupComment on above:Performed By: #### [id number], CMP, TSH3, LIPID, CBC, T4F, ESR #### [place] [address] USALymphocytes/100 WBC (Bld)34.3 %Normal.The [facility] Physician GroupComment on above:Performed By: #### [id number], CMP, TSH3, LIPID, CBC, T4F, ESR #### [address]H (RBC) [Entitic mass]33.5 xcMoxldf73.7-34.3The [facility] Physician GroupComment on above:Performed By: #### [id number], CMP, TSH3, LIPID, CBC, T4F, ESR #### [address] (RBC) [Entitic vol]98.4 mEUzxjfn12-898Pth [facility] Physician GroupComment on above:Performed By: #### [id number], CMP, TSH3, LIPID, CBC, T4F, ESR #### [place] [address] USAMean Corpuscular HGB Conc34.1 g/lMVrrmml36.0-35.0The [facility] Physician GroupComment on above:Performed By: #### [id number], CMP, TSH3, LIPID, CBC, T4F, ESR #### [place] [address] USAMonocytes (Bld) [#/Vol]0.6 10*3/uLNormal0.0-0.8The [facility] Physician GroupComment on above:Performed By: #### [id number], CMP, TSH3, LIPID, CBC, T4F, ESR #### [place] [address] USAMonocytes/100 WBC (Bld)9.8 %Normal.The [facility] Physician GroupComment on above:Performed By: #### [id number], CMP, TSH3, LIPID, CBC, T4F, ESR #### [place] [address] USANeutrophils (Bld) [#/Vol]3.4 10*3/uLNormal1.8-7.7The [facility] Physician GroupComment on above:Performed By: #### [id number], CMP, TSH3, LIPID, CBC, T4F, ESR #### [place] [address] USANeutrophils/100 WBC (Bld)52.6 %Normal.The [facility] Physician GroupComment on above:Performed By: #### [id number], CMP, TSH3, LIPID, CBC, T4F, ESR #### [place] [address] USANRBC%0.3 /100{WBC}Normal0-0.5The [facility] Comment on above:Performed By: #### [id number], CMP, TSH3, LIPID, CBC, T4F, ESR #### [place] [address] USAPlatelet mean volume (Bld) [Entitic vol]9.3 fLNormal 6.3-10.7The [facility] Physician GroupComment on above:Performed By: #### [id number], CMP, TSH3, LIPID, CBC, T4F, ESR #### [place] [address] USAPlatelets (Bld) [#/Vol]208 10*3/oPBhqblc872-541Gnt [facility] Physician GroupComment on above:Performed By: #### [id number], CMP, TSH3, LIPID, CBC, T4F, ESR #### [place] [address] USARBC (Bld) [#/Vol]3.85 10*6/uLNormal3.60-5.00The [facility] Physician GroupComment on above:Performed By: #### [id number], CMP, TSH3, LIPID, CBC, T4F, ESR #### [place] [address] USAWBC (Bld) [#/Vol]6.6 10*3/uLNormal3.8-11.6The [facility] Physician GroupComment on above:Performed By: #### [id number], CMP, TSH3, LIPID, CBC, T4F, ESR #### [place] [address] USAComprehensive Metabolic Panelon 83-99-7141Mezsjnx [Mass/Vol]3.7 g/dLNormal3.5-5.7The [facility] Physician GroupComment on above: Performed By: #### [id number], CMP, TSH3, LIPID, CBC, T4F, ESR #### [place] [address] USAAlbumin/Globulin [Mass ratio]1.9 {ratio}NormalThe [facility] Physician GroupComment on above:Performed By: #### [id number], CMP, TSH3, LIPID, CBC, T4F, ESR #### [place] [address] USAALP [Catalytic activity/Vol]62 U/NXyczxm28-069Ghf [facility] Physician GroupComment on above:Performed By: #### [id number], CMP, TSH3, LIPID, CBC, T4F, ESR #### [place] [address] USAALT [Catalytic activity/Vol]21 U/LNormal7-52The Atrium Health Physician GroupComment on above:Performed By: #### [id number], CMP, TSH3, LIPID, CBC, T4F, ESR #### [place] [address] USAAnion gap [Moles/Vol]8.2 mmol/LNormal6.0-15.0The Atrium Health Physician GroupComment on above:Performed By: #### [id number], CMP, TSH3, LIPID, CBC, T4F, ESR #### [address] [address] USAAST [Catalytic activity/Vol]19 U/IPsvrmf24-38Brj At[facility] Health Physician GroupComment on above:Performed By: #### [id number], CMP, TSH3, LIPID, CBC, T4F, ESR #### [facility] [address] [place] [address] USABilirubin [Mass/Vol]0.7 mg/dLNormal0.3-1.0The Atrium Health Physician GroupComment on above:Performed By: #### [id number], CMP, TSH3, LIPID, CBC, T4F, ESR #### [facility] [address] [place] [address] USACalcium [Mass/Vol]9.7 mg/dLNormal8.6-10.3The Atrium Health Physician GroupComment on above:Performed By: #### [id number], CMP, TSH3, LIPID, CBC, T4F, ESR #### [facility] [address] [place] [address] USAChloride [Moles/Vol]107 mmol/GXwgzrl92-066Cwe At[facility] Health Physician GroupComment on above:Performed By: #### [id number], CMP, TSH3, LIPID, CBC, T4F, ESR #### [place] [address] USACO2 [Moles/Vol]31.5 mmol/LHigh21.0-31.0The Atrium Health Physician GroupComment on above:Performed By: #### [id number], CMP, TSH3, LIPID, CBC, T4F, ESR #### [facility] [address] [place] [address] USACreatinine [Mass/Vol]0.67 mg/dLNormal0.60-1.20The Atrium Health Physician GroupComment on above:Performed By: #### [id number], CMP, TSH3, LIPID, CBC, T4F, ESR #### [place] [address] USAGFR/1.73 sq M.predicted MDRD (S/P/Bld) [Vol rate/Area] mL/min/{1.73_m2}NormalThe Atrium Health Physician GroupComment on above:Performed By: #### [id number], CMP, TSH3, LIPID, CBC, T4F, ESR #### [facility] [address] [place] [address] USAGlobulin (S) [Mass/Vol]1.9 g/dLNormalThSt. Luke's McCall Physician GroupComment on above:Performed By: #### [id number], CMP, TSH3, LIPID, CBC, T4F, ESR #### [facility] [address] [place] [address] USAGlucose [Mass/Vol]89 mg/rIYtqcau08-682Yic At[facility] Health Physician GroupComment on above:Result Comment: Random Glucose Reference Range is dependent on time and content of last meal. Glucose of more than 200 mg/dL in a nonstressed, ambulatory subject supports the diagnosis of Diabetes Mellitus. ADA recommended reference rangePerformed By: #### [id number], CMP, TSH3, LIPID, CBC, T4F, ESR #### [place] [address] USAPotassium [Moles/Vol]3.7 mmol/LNormal3.5-5.1The Atrium Health Physician GroupComment on above:Performed By: #### [id number], CMP, TSH3, LIPID, CBC, T4F, ESR #### [place] [address] USAProtein [Mass/Vol]5.6 g/dLLow6.4-8.9The At[facility] Health Physician GroupComment on above:Performed By: #### [id number], CMP, TSH3, LIPID, CBC, T4F, ESR #### [place] [address] USASodium [Moles/Vol]143 mmol/WGymbfc855-167Vxo [facility] Health Physician GroupComment on above:Performed By: #### [id number], CMP, TSH3, LIPID, CBC, T4F, ESR #### [place] [address] USAUrea nitrogen [Mass/Vol]19 mg/dLNormal7-25The At[facility] Health Physician GroupComment on above:Performed By: #### [id number], CMP, TSH3, LIPID, CBC, T4F, ESR #### [place] [id number] USAErythrocyte Sedimentation Rateon 17-73-1092PEY (Bld) [Velocity]9 mm/hNormal0-29The Atrium Health Physician GroupComment on above:Result Comment: PERFORMED BY: [place] [address] PATHOLOGIST [employer] JASIEL HURTADO M.D.Performed By: #### [id number], CMP, TSH3, LIPID, CBC, T4F, ESR #### [place] [address] USAFree T4 (Free Thyroxine)on 66-40-7065Bguo T4 [Mass/Vol] 0.74 ng/dLNormal0.61-1.12The Atrium Health Physician GroupComment on above:Performed By: #### LIPID, TSH3, CMP, CBC #### [place] [id number] USALipid Panelon 76-04-3189Sctjfqwxegz [Mass/Vol]228 mg/dL Mnwh363-740Uic At[facility] Health Physician GroupComment on above:Result Comment: Chol less than 200 mg/dl low risk Chol 201-239 mg/dl borderline risk Chol 240 mg/dl and greater high riskPerformed By: #### [id number], CMP, TSH3, LIPID, CBC, T4F, ESR #### [place] [id number] USACholesterol in HDL [Mass/Vol]96 mg/hVRkfy08-46Zei At[facility] Health Physician GroupComment on above:Result Comment: HDL CHOL ATP-III CLASSIFICATION Cardiovascular Risk HDL > or equal to 60 mg/dL LOW HDL < 40 mg/dL HIGHPerformed By: #### [id number], CMP, TSH3, LIPID, CBC, T4F, ESR #### [place] [address] USACholesterol.total/Cholesterol in HDL [Mass ratio]2.4 {ratio}Normal<5.0The Atrium Health Physician GroupComment on above:Performed By: #### [id number], CMP, TSH3, LIPID, CBC, T4F, ESR #### [facility] [address] [place] [address] USALDL Cholesterol,Zavpyvdvpd171 mg/dLHigh0-100The Atrium Health Physician GroupComment on above:Result Comment: LDL ATP III CLASSIFICATION LDL less than 100 mg/dL Optimal LDL 100-129 mg/dL Near or above optimal LDL 130-159 mg/dL Borderline high LDL 160-189 mg/dL High LDL greater than 189 mg/dL Very highPerformed By: #### [id number], CMP, TSH3, LIPID, CBC, T4F, ESR #### [facility] [address] [place] [address] USATriglyceride w/Npgxdw18 mg/dLNormal0-149The Atrium Health Physician GroupComment on above:Result Comment: TRIG ATP III CLASSIFICATION TRIG less than 150 mg/dL Normal TRIG 150-199 mg/dL Borderline high TRIG 200-500 mg/dL High TRIG greater than 500 mg/dL Very high Standard traceable to the Center for Disease Conrtrol and Prevention (CDC) test method.Performed By: #### [id number], CMP, TSH3, LIPID, CBC, T4F, ESR #### [facility] [address] [place] [id number] USAVLDL QNSYYXWGDLS26 mg/dLNormalThe Atrium Health Physician GroupComment on above:Performed By: #### [id number], CMP, TSH3, LIPID, CBC, T4F, ESR #### [facility] [address] [place] [id number] USAThyroid Stimulating Hormoneon 02-58-9475TAB Qn6.38 m[IU]/L High0.45-5.33The At[facility] Health Physician GroupComment on above:Performed By: #### LIPID, TSH3, CMP, CBC #### [facility] [address] [place] [id number] USAVitamin D 25 Hydroxy Totalon 73-41-0489Jznuwsr D 25 Hydroxy Total28.4 ng/zGLca07-730Tqj At[facility] Health Physician GroupComment on above: Result Comment: VITAMIN D STATUS 25(OH)VITAMIN D RANGE (ng/mL) Deficient <20 Insufficient 20 to <30 Sufficient 30 to 100 Reference: Yolanda MF,Nathan NC, Keshawn FRANCO, et al. Evaluation,treatment, and prevention of vitamin D deficiency; an Endocrine Society clinical practice guideline. JCEM. 2010; 96(7):1911-30. PERFORMED BY: [place] [address] PATHOLOGIST [employer] JASIEL HURTADO M.D.Performed By: #### LIPID, TSH3, CMP, CBC #### [place] [id number] USAXR scapula LT*on 33-04-4066LY scapula LT*[facility] [place] [address] [place], [place] [address] XRay Report Signed Patient: Lavonne Villatoro MR#: [id number] : 1935 Acct:[id number] Age/Sex: 88 / F ADM Date: 05/25/24 Loc: XD Room: Type: [facility] Attending Dr: Suhas Garrett DO Copies to: Suhas Garrett DO Ordering Provider: Suhas Garrett DO Date of Service: 05/25/24 XR/XR shoulder LT min 2V*: M25.519 - Pain in unspecified shoulder ([id number]) XR/XR scapula LT*: M25.519 - Pain in [...] Casandra Gómez M.D.05/25/2024 4:45 PM Dictation Location: [place] [address] Transcribed By: [facility] 05/25/241644 Dictated By: Casandra Gómez MD 05/25/241641 Signed By: 05/25/241644[facility] Physician GroupTRANSTHORACIC ECHO (TTE) COMPLETEon 10-65-8529LOEGSUTQQNIVV ECHO (TTE) [address], [address] [place] [address] TRANSTHORACIC ECHOCARDIOGRAM REPORT Patient Name: LAVONNE VILLATORO Reading Physician: [id number] Wolf MD, [facility] Study Date: 02/11/2024 Ordering Provider: [id number] MICHEL WOLF MRN/PID: [id number] Fellow: Nurse: Date of /Age: 3 1935 / 88 years Straw Boss: LILIA Gender: F Additional Staff: Height: 157.48 cm Admit Date: Weight: 69.40 kg Admission Status: BSA / BMI: 1.71 m2 / 27.98 kg/m2 Department Location: [facility] Blood Pressure: 116 /76 mmHg Study Type: TRANSTHORACIC ECHO (TTE) COMPLETE Diagnosis/ICD: Nonrheumatic aortic (valve) stenosis-I35.0 Indication: HTN, Hyperlipidemia, 3/6 Systolic Murmur, Hypothryoid, Overweight CPT Codes: Echo Complete w Full Doppler-47454 Study Detail: The following Echo studies were [...] mmHg PIEDV: 2.23 m/s PADP: 22.9 mmHg [id number] Michel Wolf MD, [facility] Electronical (more content not included)...[facility]US [facility] do[facility] BIon 25-39-1120AO carotid doppler [facility] [place] [address] [place] [address] Ultrasound Report Signed Patient: Lavonne Villatoro MR#: [id number] : 1935 Acct:[id number] Age/Sex: 88 / F ADM Date: 10/14/23 Loc: Room: Type: [facility] CL Attending Dr: Suhas Garrett DO Ordering Provider: [...] Hola Wynn M.D.10/15/2023 11:47 AM Dictation Location: [place] [address] Tech: Jackie Aguillon Transcribed By: KIRILL 10/15/23 1147 Dictated By: Hola yWnn MD 10/15/23 1145 Signed By: 10/15/23 1147Norm[facility] Physician [facility] MississippiComplete Blood Count Auto Diffon 87-70-6916Ukmcoarzi (Bld) [#/Vol]0.0 10*3/uLNormal0.0-0.2The [facility]ician [facility] MississippiComment on above:Result Comment: PERFORMED BY: [place] [address] PATHOLOGIST [employer] JODY SOLANO M.D.Performed By: #### LIPID, TSH3, CMP, CBC #### [place] [address] USABasophils/100 WBC (Bld)0.7 %Normal.The Atrium Health Physician GroupComment on above:Performed By: #### LIPID, TSH3, CMP, CBC #### [place] [address] USAEosinophils (Bld) [#/Vol]0.1 10*3/uLNormal0.0-0.45The At[facility] Health Physician GroupComment on above:Performed By: #### LIPID, TSH3, CMP, CBC #### [place] [address] USAEosinophils/100 WBC (Bld)1.6 %Normal.The At[facility] Health Physician GroupComment on above:Performed By: #### LIPID, TSH3, CMP, CBC #### [place] [address] USAErythrocyte distribution width (RBC) [Ratio]14.8 %Normal 11.9-15.3The At[facility] Health Physician GroupComment on above:Performed By: #### LIPID, TSH3, CMP, CBC #### [place] [address] USAHematocrit (Bld) [Volume fraction]39.9 %Lqmbtt35.0-46.4The At[facility] Health Physician GroupComment on above:Performed By: #### LIPID, TSH3, CMP, CBC #### [place] [address] USAHemoglobin (Bld) [Mass/Vol]13.2 g/gUTxwlxs30.8-15.4The At[facility] Health Physician GroupComment on above:Performed By: #### LIPID, TSH3, CMP, CBC #### [place] [address] USALymphocytes (Bld) [#/Vol]2.6 10*3/uLNormal1.00-4.8The At[facility] Health Physician GroupComment on above:Performed By: #### LIPID, TSH3, CMP, CBC #### [place] [address] USALymphocytes/100 WBC (Bld)43.5 %Normal.The At[facility] Health Physician GroupComment on above:Performed By: #### LIPID, TSH3, CMP, CBC #### [address] (RBC) [Entitic mass]33.2 xkRsmayx13.7-34.3The Atrium Health Physician GroupComment on above:Performed By: #### LIPID, TSH3, CMP, CBC #### [address] (RBC) [Entitic vol]100.5 dIFzeb21-289Zsm At[facility] Health Physician GroupComment on above:Performed By: #### LIPID, TSH3, CMP, CBC #### [place] [address] USAMean Corpuscular HGB Conc33.0 g/dIDqnzlc52.0-35.0The At[facility] Health Physician GroupComment on above:Performed By: #### LIPID, TSH3, CMP, CBC #### [place] [address] USAMonocytes (Bld) [#/Vol]0.6 10*3/uLNormal0.0-0.8The At[facility] Health Physician GroupComment on above:Performed By: #### LIPID, TSH3, CMP, CBC #### [facility] [address] [place] [address] USAMonocytes/100 WBC (Bld)9.7 %Normal.The Atrium Health Physician GroupComment on above:Performed By: #### LIPID, TSH3, CMP, CBC #### [facility] [address] [place] [address] USANeutrophils (Bld) [#/Vol]2.7 10*3/uLNormal1.8-7.7The At[facility] Health Physician GroupComment on above:Performed By: #### LIPID, TSH3, CMP, CBC #### [place] [address] USANeutrophils/100 WBC (Bld)44.5 %Normal.The Atrium Health Physician GroupComment on above:Performed By: #### LIPID, TSH3, CMP, CBC #### [facility] [address] [place] [address] USANRBC%0.2 /100{WBC}Normal0-0.5The [facility] Group Comment on above:Performed By: #### LIPID, TSH3, CMP, CBC #### [facility] [address] [place] [address] USAPlatelet mean volume (Bld) [Entitic vol]9.2 fLNormal 6.3-10.7The At[facility] Health Physician GroupComment on above:Performed By: #### LIPID, TSH3, CMP, CBC #### [facility] [address] [place] [address] USAPlatelets (Bld) [#/Vol]229 10*3/vEBjhcra795-128Prl [facility] Health Physician GroupComment on above:Performed By: #### LIPID, TSH3, CMP, CBC #### [facility] [address] [place] [address] USARBC (Bld) [#/Vol]3.98 10*6/uLNormal3.60-5.00The At[facility] Health Physician GroupComment on above:Performed By: #### LIPID, TSH3, CMP, CBC #### [place] [address] USAWBC (Bld) [#/Vol]6.0 10*3/uLNormal3.8-11.6The [facility] Health Physician GroupComment on above:Performed By: #### LIPID, TSH3, CMP, CBC #### [place] [address] USAComprehensive Metabolic Panelon 66-20-4950Ucdkllz [Mass/Vol]3.8 g/dLNormal3.5-5.7The At[facility] Health Physician GroupComment on above: Performed By: #### LIPID, TSH3, CMP, CBC #### [place] [address] USAAlbumin/Globulin [Mass ratio]1.7 {ratio}NormalThe Atrium Health Physician GroupComment on above:Performed By: #### LIPID, TSH3, CMP, CBC #### [place] [address] USAALP [Catalytic activity/Vol]72 U/MMvvcpm87-659Dtn [facility] Health Physician GroupComment on above:Performed By: #### LIPID, TSH3, CMP, CBC #### [place] [address] USAALT [Catalytic activity/Vol]43 U/LNormal7-52The At[facility] Health Physician GroupComment on above:Performed By: #### LIPID, TSH3, CMP, CBC #### [place] [address] USAAnion gap [Moles/Vol]8.9 mmol/LNormal6.0-15.0The At[facility] Health Physician GroupComment on above:Performed By: #### LIPID, TSH3, CMP, CBC #### [place] [address] USAAST [Catalytic activity/Vol]23 U/EVetmuk51-46Qyj [facility] Health Physician GroupComment on above:Performed By: #### LIPID, TSH3, CMP, CBC #### [place] [address] USABilirubin [Mass/Vol]1.2 mg/dLHigh0.3-1.0The [facility] Health Physician GroupComment on above:Performed By: #### LIPID, TSH3, CMP, CBC #### [place] [address] USACalcium [Mass/Vol]9.5 mg/dLNormal8.6-10.3The [facility] Health Physician GroupComment on above:Performed By: #### LIPID, TSH3, CMP, CBC #### [place] [address] USAChloride [Moles/Vol]107 mmol/QElsdsd56-637Uff [facility] Health Physician GroupComment on above:Performed By: #### LIPID, TSH3, CMP, CBC #### [place] [address] USACO2 [Moles/Vol]30.0 mmol/EHvmgtz68.0-31.0The [facility] Health Physician GroupComment on above:Performed By: #### LIPID, TSH3, CMP, CBC #### [place] [address] USACreatinine [Mass/Vol]0.76 mg/dLNormal0.60-1.20The [facility] Health Physician GroupComment on above:Performed By: #### LIPID, TSH3, CMP, CBC #### [place] [address] USAGFR/1.73 sq M.predicted MDRD (S/P/Bld) [Vol rate/Area] mL/min/{1.73_m2}NormalThe Atrium Health Physician GroupComment on above:Performed By: #### LIPID, TSH3, CMP, CBC #### [place] [address] USAGlobulin (S) [Mass/Vol]2.2 g/dLNormalThe Atrium Health Physician GroupComment on above:Performed By: #### LIPID, TSH3, CMP, CBC #### [address] [place] [address] USAGlucose [Mass/Vol]79 mg/uRQmuqlb13-468Yks [facility] Health Physician GroupComment on above:Result Comment: Random Glucose Reference Range is dependent on time and content of last meal. Glucose of more than 200 mg/dL in a nonstressed, ambulatory subject supports the diagnosis of Diabetes Mellitus. ADA recommended reference rangePerformed By: #### LIPID, TSH3, CMP, CBC #### [place] [address] USAPotassium [Moles/Vol]3.9 mmol/LNormal3.5-5.1The [facility] Health Physician GroupComment on above:Performed By: #### LIPID, TSH3, CMP, CBC #### [place] [address] USAProtein [Mass/Vol]6.0 g/dLLow6.4-8.9The [facility] Health Physician GroupComment on above:Performed By: #### LIPID, TSH3, CMP, CBC #### [place] [address] USASodium [Moles/Vol]142 mmol/PDhjppt548-533Wyo At[facility] Health Physician GroupComment on above:Performed By: #### LIPID, TSH3, CMP, CBC #### [place] [address] USAUrea nitrogen [Mass/Vol]22 mg/dLNormal7-25The [facility] Health Physician GroupComment on above:Performed By: #### LIPID, TSH3, CMP, CBC #### [place] [address] USALipid Panelon 62-97-1101Pitokfzpoeu [Mass/Vol]243 mg/dL Ucxk746-755Vsy [facility] Health Physician GroupComment on above:Result Comment: Chol less than 200 mg/dl low risk Chol 201-239 mg/dl borderline risk Chol 240 mg/dl and greater high riskPerformed By: #### LIPID, TSH3, CMP, CBC #### [place] [address] USACholesterol in HDL [Mass/Vol]98 mg/qZVogg88-15Vky [facility] Health Physician GroupComment on above:Result Comment: HDL CHOL ATP-III CLASSIFICATION Cardiovascular Risk HDL > or equal to 60 mg/dL LOW HDL < 40 mg/dL HIGHPerformed By: #### LIPID, TSH3, CMP, CBC #### [facility] [address] [place] [id number] USACholesterol.total/Cholesterol in HDL [Mass ratio]2.5 {ratio}Normal<5.0The At[facility] Health Physician GroupComment on above:Performed By: #### LIPID, TSH3, CMP, CBC #### [facility] [address] [place] [address] USALDL Cholesterol,Naxcqryorz579 mg/dLHigh0-100The [facility] Health Physician GroupComment on above:Result Comment: LDL ATP III CLASSIFICATION LDL less than 100 mg/dL Optimal LDL 100-129 mg/dL Near or above optimal LDL 130-159 mg/dL Borderline high LDL 160-189 mg/dL High LDL greater than 189 mg/dL Very highPerformed By: #### LIPID, TSH3, CMP, CBC #### [facility] [address] [place] [id number] USATriglyceride w/Mxaoce475 mg/dLNormal0-149The [facility] Health Physician GroupComment on above:Result Comment: TRIG ATP III CLASSIFICATION TRIG less than 150 mg/dL Normal TRIG 150-199 mg/dL Borderline high TRIG 200-500 mg/dL High TRIG greater than 500 mg/dL Very high Standard traceable to the Center for Disease Conrtrol and Prevention (CDC) test method.Performed By: #### LIPID, TSH3, CMP, CBC #### [facility] [address] [place] [id number] USAVLDL QCHDQOBJRQU78 mg/dLNormalThe [facility]rium Health Physician GroupComment on above:Performed By: #### LIPID, TSH3, CMP, CBC #### [facility] [address] [place] [id number] USAThyroid Stimulating Hormoneon 28-33-6823PTP Qn4.01 m[IU]/L Normal0.45-5.33The [facility] Health Physician GroupComment on above:Result Comment: PERFORMED BY: [place] [address] PATHOLOGIST [employer]BLER JODY SOLANO M.D.Performed By: #### LIPID, TSH3, CMP, CBC #### [facility] [address] [place] [id number] USAComplete Blood Count Auto Diffon 00-20-9592Zxnhnxiqk (Bld) [#/Vol]0.396408211 10*3/uLNormal0.0-0.2 10*3/[employer] Other Basophils/100 WBC (Bld)0.900 %. %[employer] Other Eosinophils (Bld) [#/Vol]0.079686752 10*3/uLNormal0.0- 0.45 10*3/[employer] Other Eosinophils/100 WBC (Bld)1.100 %. %[employer] Other Erythrocyte distribution width (RBC) [Ratio]14.000 % Tlahuz08.9-15.3 %[employer] Other Hematocrit (Bld) [Volume fraction]37.700 %Frykem80.0- 46.4 %[employer] Other Hemoglobin (Bld) [Mass/Vol]12.848441 g/oMZkxncn46.8- 15.4 g/dLNo908 [employer] Other Lymphocytes (Bld) [#/Vol]2.471523651 10*3/uLNormal 1.00-4.8 10*3/[employer] Other Lymphocytes/100 WBC (Bld)35.100 %. %[employer] Other MCH (RBC) [Entitic mass]33.3000 cgHhirid27.7-34.3 pg [employer] Other MCV (RBC) [Entitic vol]99.7000 sFRflizc29-672 [facility]908 [employer] Other Monocytes (Bld) [#/Vol]0.676574906 10*3/uLNormal0.0- 0.8 10*3/[employer] Other Monocytes/100 WBC (Bld)10.000 %. %[employer] Other Neutrophils (Bld) [#/Vol]3.023393292 10*3/uLNormal1.8- 7.7 10*3/[employer] Other Neutrophils/100 WBC (Bld)52.900 %. %[employer] Other Platelet mean volume (Bld) [Entitic vol]9.9000 fL Normal6.3-10.7 [facility] HospitalRestaro Other Platelets (Bld) [#/Vol]224 10*3/tSAxndwh929-133 10*3/[employer] Other RBC (Bld) [#/Vol]3.78 10*6/uLNormal3.60-5.00Ssm RehabSimply[employer] Other WBC (Bld) [#/Vol]7.833698069 10*3/uLNormal3.8-11.6 10*3/[employer] Other Complete Blood Count Auto Diff7.1 10*3/uLNormal3.8- 11.6 10*3/[employer] Other Complete Blood Count Auto Diff33.4 g/nVRkksvz40.0-35.0 g/dLRestaro Other Complete Blood Count Auto Diff0.1 /100{WBC}Normal0-0.5 /100{WBC}[employer] Other Comprehensive Metabolic Panelon 23-18-4544Oklkvzj [Mass/Vol]3.345250 g/dLNormal3.5-5.7 g/dLNohannibal regional hospital Zones Other Albumin/Globulin [Mass ratio]1.7 {ratio}[employer] Other ALP [Catalytic activity/Vol]140 U/JXlch02-067 U/[employer] Other ALT [Catalytic activity/Vol]71 U/LHigh7-52 U/[employer] Other AST [Catalytic activity/Vol]20 U/JQyqgav09-83 U/[employer] Other Bilirubin [Mass/Vol]0.4852621 mg/dLNormal0.3-1.0 mg/dL [employer] Other Calcium [Mass/Vol]9.6483234 mg/dLNormal8.6-10.3 mg/dL [employer] Other Chloride [Moles/Vol]107 mmol/GYseivb89-093 mmol/[employer] Other CO2 [Moles/Vol]30.00018737 mmol/XDdbckb91.0-31.0 mmol/[employer] Other Creatinine [Mass/Vol]0.15660472 mg/dLNormal0.60-1.20 mg/dLNoRestaro Other GFR/1.73 sq M.predicted MDRD (S/P/Bld) [Vol rate/Area] mL/min/{1.73_m2}[employer] Other Glucose [Mass/Vol]89 mg/lGErcyqg64-428 mg/dLRestaro Other Potassium [Moles/Vol]3.70351263 mmol/LNormal3.5-5.1 mmol/LNjohn j. pershing [facility] Zones Other Protein [Mass/Vol]6.516716 g/dLLow6.4-8.9 g/dLNoRestaro Other Sodium [Moles/Vol]143 mmol/OGuwmbr723-514 mmol/LNDNART LIMITADA Other Urea nitrogen [Mass/Vol]21 mg/dLNormal7-25 mg/dLNoSimplyCast Other Comprehensive Metabolic Panel2.2 g/dL908 [employer] Other Free T4 (Free Thyroxine)on 57-29-5979Tzhk T4 [Mass/Vol]1.63458110 ng/dLHigh0.61-1.12 ng/dLNohannibal regional hospital Zones Other Thyroid Antibodies TPO+Tg Abon 38-65-1254Vwgnnag Antibodies TPO+Tg Un351-37Akzgp Z[employer] Other Thyroid Antibodies TPO+Tg Ab<1.00.0-0.9Nohannibal regional hospital Zones Other Thyroid Stimulating Hormoneon 44-07-0359BMJ Qn 2.92414840751 m[IU]/LNormal0.45-5.33 u[iU]/mLNDNART LIMITADA Other Echocardiogramon 19-58-1996ZnkgrwpvkztokpjnDlm[address], [address] [place] [address] TRANSTHORACIC ECHOCARDIOGRAM REPORT Patient Name: LAVONNE Bahena Physician: [id number] Michel Wolf MD [facility] Study Date: 02/26/2023 Referring MICHEL WOLF Physician: MRN/PID: [id number] PCP: Suhas Garrett MD Accession/Order#: [id number] [facility] Location: Date of : 1935 Fellow: Gender: F Nurse: Admit Date: Straw Boss: Sheridan Lemus RDCS, RVT Height: 157.48 cm CC Report to: Weight: 67.13 kg Study Type: Echocardiogram BSA: 1.68 m2 Blood Pressure: 122 /76 mmHg Diagnosis/ICD: I35.0-Nonrheumatic aortic (valve) stenosis; R01.1-Cardiac murmur, unspecified Indication: HTN, Hyperlipidemia, Overweight, Hypothyroid, Polymyalgia Rheumatica Procedure/CPT: Echo Complete w Full Doppler-95953 Study Detail: The following Echo studies were [...] velocity across the aortic valve has increased kgvy914 cm/s up to 374 cm/s and aortic [...] mmHg PIEDV: 2.50 m/s PADP: 28.0 mmHg [id number] Michel Wolf MD, FACC Electronically signed on 03/01/2023 at 2:16:46 PM Final [facility] (Cardiology)on [id number]-up visitDiagnoses/Problems Assessed Aortic stenosis (424.1) (I35.0) Murmur, cardiac (785.2) (R01.1) Essential hypertension (401.9) (I10) Hyperlipidemia (272.4) (E78.5) Overweight with body mass index (BMI) of 27 to 27.9 in adult (278.02,V85.23) (E66.3,Z68.27) Never smoker Hypothyroidism (244.9) (E03.9) PMR (polymyalgia rheumatica) (725) (M35.3) Orders Aortic stenosis, Murmur, cardiac Echocardiogram; Status:Hold For - Scheduling,Retrospective Authorization; Requested for:[id number]; Essential hypertension, Hyperlipidemia Changed: From Aspirin EC 81 MG TBEC TAKE 1 TABLET To Aspirin 81 MG Oral Tablet Delayed Release TAKE 1 TABLET DAILY Overweight with body mass index (BMI) of 27 to 27.9 in adult Healthy Weight Tips; Status:Complete - Retrospective Authorization; Done: [id number] Some eating tips that can help you lose weight.; Status:Complete - Retrospective Authorization; Done: [id number] SocHx: Never smoker Tobacco Use Screening; Status:Complete; Done: [id number] Patient Instructions Please bring all medicines, vitamins, [...] is being tapered gradually Michel Wolf MD, FACC Past Medical History Problems [...] Multi Vitamin Oral TabletTAKE 1 TABLET DAILY. [place]-3 Fish Oil 1000 MG Oral CapsuleTAKE 1 [...] negative for complaint. Vitals Vital Signs Recorded: 90Xrn7825 11:32AM Heart Rate68, R Radial Eoqvwjua899, RUE, Sitting Qiqdqeqwu34, RUE, Sitting Height5 ft 2 in Ytimfw400 lb BMI Abdfzrtkkc23.07 kg/m2 BSA Calculated1.68 Tobacco Useb) No PHQ-2 [...] included)...NormalUH TouchworksTobacco Screening.on 12-24-2022 Adult depression [facility] 250 DO Work Phone: Fall risk assessmenta) No falls within the last year [facility] [employer] 250 DO Work Phone: Tobacco use status CPHSb) [facility] [place] [employer] 250 DO Work Phone: Complete Blood Count Auto Diffon 04-76-1888Tjvybania (Bld) [#/Vol]0.236278124 10*3/uLNormal0.0-0.2 10*3/N[employer] Other Basophils/100 WBC (Bld)0.700 %. %[employer] Other Eosinophils (Bld) [#/Vol]0.658367010 10*3/uLNormal0.0- 0.45 10*3/Nippo Other Eosinophils/100 WBC (Bld)0.700 %. %[employer] Other Erythrocyte distribution width (RBC) [Ratio]13.500 % Xktpks90.9-15.3 %[employer] Other Hematocrit (Bld) [Volume fraction]38.400 %Seedij95.0- 46.4 %[employer] Other Hemoglobin (Bld) [Mass/Vol]12.205177 g/jDOseeea20.8- 15.4 g/dLNoRestaro Other Lymphocytes (Bld) [#/Vol]0.200691251 10*3/uLLow1.00- 4.8 10*3/Nippo Other Lymphocytes/100 WBC (Bld)12.600 %. %[employer] Other MCH (RBC) [Entitic mass]33.7000 rlDmntke57.7-34.3 pg [employer] Other MCV (RBC) [Entitic vol]100.4000 sNIwwr44-806 OK[employer] Other Monocytes (Bld) [#/Vol]0.799262926 10*3/uLNormal0.0- 0.8 10*3/[employer] Other Monocytes/100 WBC (Bld)6.800 %. %[employer] Other Neutrophils (Bld) [#/Vol]5.734080687 10*3/uLNormal1.8- 7.7 10*3/[employer] Other Neutrophils/100 WBC (Bld)79.200 %. %[employer] Other Platelet mean volume (Bld) [Entitic vol]9.4000 fL Normal6.3-10.7 [facility] Other Platelets (Bld) [#/Vol]223 10*3/dZGyzkay953-549 10*3/[employer] Other RBC (Bld) [#/Vol]3.4527458239 10*6/uLNormal3.60-5.00 10*6/[employer] Other WBC (Bld) [#/Vol]6.684825330 10*3/uLNormal3.8-11.6 10*3/[employer] Other Complete Blood Count Auto Diff6.6 10*3/uLNormal4.5- 11.0 10*3/[employer] Other Complete Blood Count Auto Diff33.6 g/qYPozvmu93.0-35.0 g/dLThe [employer] Other Complete Blood Count Auto Diff0.1 %Normal0-0.5 %Located Within [facility] [employer] Other Erythrocyte Sedimentation Rateon 88-64-8060JNO (Bld) [Velocity]28 mm/hNormal0-29[facility] Zones Other VASC LAB Carotid Artery Duplex Ultrasoundon 02-21-2022 US.doppler Carotid arteriesFranciscan Health [facility] [address] [place] Work Phone: COVID Quick Testingon 43-57-0884XbnmwiFdtpmzsxXtemj Zones Other Falls Screening (Age 18+)on 34-64-9730Rign risk assessmenta) No falls within the last yearFranciscan [facility] 250 DO Work Phone: Office Visit (Cardiology)on 45-54-0161Hicsci-up visit Diagnoses/Problems Assessed Essential hypertension (401.9) (I10) [...] Multi Vitamin Oral TabletTAKE 1 TABLET DAILY. [place] 3 500 CAPSTAKE 1 CAPSULE Daily predniSONE 5 MG Oral Iztnwx4HB 7.5MG BY MOUTH ONE DAILY ALTERNATING EVERY OTHER DAY Allergies Medication amoxicillin Hives;; Recorded By: Kayla Orr; 10/17/2021 10:50:34 AM Dilantin CAPS Rash; Recorded By: Kayla Orr; 10/17/2021 10:50:34 AM Fosamax eye pain; Recorded By: Kayla Orr; 10/17/2021 10:50:34 AM Depakote ER TB24 Recorded By: Kayla Orr; 10/17/2021 10:50:34 AM Vitals Vital Signs Recorded: 36Yxy1419 11:04AMRecorded: 52Kcy0344 11:00AM Heart Rate56, R Fubrww45, R Radial Hvfxfyxi580, LUE, Pvyidby552, RUE Izhykwiwi23, LUE, Wxwtqwo50, RUE Height5 ft 2 in5 ft 2 in Ubfgsz774 lb 143 lb BMI Lyspuctzrz11.16 kg/m226.16 kg/m2 BSA Calculated1.661.66 Falls Screening (Age 18+)a) No falls within the last year Signatures Electronically signed by : Michel Wolf MD; Dec 26 2021 4:02PM EST (Author) [facility] TouchworksTobacco Screening.on 59-62-9999Pupof depression screening assessmentTexas [facility] Work Phone: Fall risk assessmenta) No falls within the last year [facility] Work Phone: Tobacco use status CPHSb) [facility] Work Phone: Vital Signs Date TimeVital SignValuePerforming QqijashbgQnrdctnx96-81-5319 11:07-0400Body nuhtgh193.5 cmMichel Wolf MD Work Phone: [facility]08-08-2025 11:07-0400 Body mass index (BMI) [Ratio]27.44 kg/w7CqagpuMichel Wolf MD Work Phone: [facility]08-08-2025 11:07-0400 Body pfwusv17.04 kgMichel Wolf MD Work Phone: [facility]08-08-2025 11:07-0400 Diastolic blood lkwhdoym50 mm[Hg]Michel Wolf MD Work Phone: 1(896)042-[address] [place], [place] 1552008-08-2025 11:07-0400 Heart rate60 /minMichel Wolf MD Work Phone: [address] [place], [place] 5255708-08-2025 11:07-0400 Systolic blood amgoqjga052 mm[Hg]Michel Wolf MD Work Phone: [address] [place], [place] 5255707-15-2025 12:30-0400 Body nffinp124.[address]07-15-2025 12:30-0400 Body mass index (BMI) [Ratio]26.52 kg/m[address] 12-21-2024 12:30-0400Body aictrr98.[address] 12-21-2024 12:30-0400Diastolic blood ifezmotq10 mm[Hg][address]07-15-2025 12:30-0400Systolic blood wfcmmpxy611 mm[Hg][address]07-02-2025 13:56-0400Diastolic blood xyiuhnar03 mm[Hg]Reuben Burns [employer] F[employer] WORKER[employer]TATT[employer]ER Work Phone: [facility]07-02-2025 13:56-0400 Systolic blood hbciuihm952 mm[Hg]Reuben Burns FI[employer] FARM WORKER-TATTOOER Work Phone: [phone])820-[address] [place], [place] 1552007-01-2025 14:59-0400 Body .5 cmReuben Burns FIELD [employer] FARM WORKER-TATTOOER Work Phone: 0(325)803-[address] [place], [place] 1552007-01-2025 14:59-0400 Body mass index (BMI) [Ratio]26.45 kg/i4QrljuReuben Burns FIELD [employer] FARM WORKER-TATTOOER Work Phone: [phone](331)052-[address] [place], [place] 1552007-01-2025 14:59-0400 Body .59 kgReuben Burns FIELD [employer] FARM WORKER-TATTOOER Work Phone: [facility]07-01-2025 14:59-0400 Heart rate62 /Torreynamangerda Grant HOFFMAN-TATTOOER Work Phone: [address] [place], [place] 5255711-08-2024 13:16-0500 Body ukzyiw116.5 cmMichel Wolf MD Work Phone: [address] [place], [place] 5255711-08-2024 13:16-0500 Body mass index (BMI) [Ratio]26.67 kg/d6YhtmpqMichel Wolf MD Work Phone: [phone] [place], [place] 1552011-08-2024 13:16-0500 Body ktdwil29.13 kgMichel Wolf MD Work Phone: [phone])[address] [place], [place] 1552011-08-2024 13:16-0500 Diastolic blood cxpyjrtu58 mm[Hg]Michel Wolf MD Work Phone: 1(354)[address] [place], [place] 1552011-08-2024 13:16-0500 Heart rate62 /minMichel Wolf MD Work Phone: [phone])[address] [place], [place] [address]2011-08-2024 13:16-0500 Systolic blood tluowzhr224 mm[Hg]Michel Wolf MD Work Phone: 1(243)280-[address] [place], [place] 1552009-04-2024 12:28-0400 Body cclurj472.[address] [place], [place] 6852309-04-2024 12:28-0400 Body mass index (BMI) [Ratio]27.98 kg/m2Ely [address] [place] [address] 02-11-2024 12:28-0400Body xhiuzc74.[address] [place] [address] 02-11-2024 12:28-0400Diastolic blood mzselqwe94 mm[Hg]Susie [address] [place], [place] 6852309-04-2024 12:28-0400Systolic blood gedcnsff017 mm[Hg][address]01-26-2024 11:15-0500Body znocgp576.48 cmSuhas Garrett Other [employer] Other 01-26-2024 11:15-0500Body mass index (BMI) [Ratio] 28.53 kg/g8Rsrti Kunadan Other [employer] Other 01-26-2024 11:15-0500Body ixnyvb48.76 kgSuhas Tami Other [employer] Other 01-26-2024 11:15-0500Diastolic blood vaqqncdz13 mm[Hg] Suhas Garrett Other [employer] Other 01-26-2024 11:15-0500Respiratory rate20 /minCarterraquel Gaeladna Other [employer] Other 01-26-2024 11:15-1457HhJ0% (BldA) [Mass fraction]99 % Suhas Gaeladan Other [employer] Other 01-26-2024 11:15-0500Systolic blood zuzvghdi745 mm[Hg] Suhas Garrett Other [employer] Other 01-11-2024 11:09-0500Body ycupfx614.5 cmMichel Wolf MD Work Phone: [facility]01-11-2024 11:09-0500 Body mass index (BMI) [Ratio]27.98 kg/h2LqqnbyMichel Wolf MD Work Phone: [facility]01-11-2024 11:09-0500 Body .4 kgMichel Wolf MD Work Phone: [facility]01-11-2024 11:09-0500 Diastolic blood fqhwbsiw00 mm[Hg]Michel Wolf MD Work Phone: [facility]01-11-2024 11:09-0500 Heart rate60 /minMichel Wolf MD Work Phone: [facility]01-11-2024 11:09-0500 Systolic blood mm[Hg]Michel Wolf MD Work Phone: [facility]12-22-2023 11:00-0500 Body zjegiw068.48 cmSuhas Garrett Other [employer] Other 12-22-2023 11:00-0500Body mass index (BMI) [Ratio]27.8 kg/l2GbcloSuhas Garrett Other [employer] Other 12-22-2023 11:00-0500Body aglnrv67.95 kgSuhas Garrett Other [employer] Other 12-22-2023 11:00-0500Diastolic blood ybroqmaj65 mm[Hg] Suhas Garrett Other [employer] Other 12-22-2023 11:00-0500Respiratory rate18 /minSuhas Garrett Other [employer] Other 12-22-2023 11:00-9066YqR4% (BldA) [Mass fraction]96 % Suhas Garrett Other [employer] Other 12-22-2023 11:00-0500Systolic blood auyotofz292 mm[Hg] Suhas Garrett Other [employer] Other 09-22-2023 10:30-0400Body enjtlp523.48 cmSuhas Garrett Other [employer] Other 09-22-2023 10:30-0400Body mass index (BMI) [Ratio] 27.98 kg/h3OhtqkSuhas Garrett Other [employer] Other 09-22-2023 10:30-0400Body .4 kgSuhas Garrett Other [employer] Other 09-22-2023 10:30-0400Diastolic blood nuhhieul33 mm[Hg] Suhas Garrett Other [employer] Other 09-22-2023 10:30-0400Respiratory rate16 /minSuhas Garrett Other [employer] Other 09-22-2023 10:30-6177EdB3% (BldA) [Mass fraction]91 % Suhas Garrett Other [facility] Other 09-22-2023 10:30-0400Systolic blood omxcidvi998 mm[Hg] Suhas Garrett Other [facility] Other 07-18-2023 11:32-0400Body klmmae622.48 cmSuhas Garrett Work Phone: [phone]-Qvivi [place] [employer] 250 DO Work Phone: 1(905) 528-785307-18-2023 11:32-0400Body mass index (BMI) [Ratio] 27.07 kg/z3KpkufSuhas Garrett Work Phone: [phone]-Eukam [place] [employer] 250 DO Work Phone: 1(448) 854-586007-18-2023 11:32-0400Body surface area Derived from formula1.68 o1RafizSuhas Garrett Work Phone: mp606-8978AT-Pbcfu [place] [facility] 250 DO Work Phone: 1(734) 508-952707-18-2023 11:32-0400Body tcuyxd33.13 kgCarterraquel Garrett Work Phone: mp851-5081JE-Cmzzy [place] [facility] 250 DO Work Phone: 1(873) 254-159807-18-2023 11:32-0400Diastolic blood eokqtdow87 mm[Hg] Suhas Hoffman Tami Work Phone: [phone]-Znsdn [place] [facility] 250 DO Work Phone: 1(622) 732-972507-18-2023 11:32-0400Heart rate68 /minSuhas Dalton Garrett Work Phone: mp269-5231NO-Velkj [place] [employer] 250 DO Work Phone: 1(777) 219-324507-18-2023 11:32-0400Systolic blood eaiaswen554 mm[Hg] Suhasraquel Garrett Work Phone: [phone]-Wannm [place] [employer] 250 DO Work Phone: 1(516) 635-584006-30-2023 10:30-0400Body frymts459.48 cmSuhas Gaeladan Other [employer] Other 06-30-2023 10:30-0400Body mass index (BMI) [Ratio] 27.98 kg/s1Repnq Gaeladan Other [employer] Other 06-30-2023 10:30-0400Body .4 kgSuhas Garrett Other [employer] Other 06-30-2023 10:30-0400Diastolic blood tvdwdzaz93 mm[Hg] Suhas Garrett Other [employer] Other 06-30-2023 10:30-0400Respiratory rate16 /minCarterraquel Mayoadan Other [employer] Other 06-30-2023 10:30-6881YeX8% (BldA) [Mass fraction]98 % Suhasraquel Garrett Other [employer] Other 06-30-2023 10:30-0400Systolic blood ihwlnytd144 mm[Hg] Suhasraquel Mayoadan Other [employer] Other 04-14-2023 11:45-0400Body ugxspy037.48 cmCarterraquel Garrett Other [employer] Other 04-14-2023 11:45-0400Body mass index (BMI) [Ratio] 26.34 kg/f2Zjoql Kuns Other [employer] Other 04-14-2023 11:45-0400Body tbpaza21.32 kgCarterraquel Garrett Other [employer] Other 04-14-2023 11:45-0400Diastolic blood gknorqyh42 mm[Hg] Suhasraquel Mayoadan Other [employer] Other 04-14-2023 11:45-0400Respiratory rate16 /minCarterraquel Garrett Other [employer] Other 04-14-2023 11:45-5396OiR0% (BldA) [Mass fraction]98 % Suhasraquel Mayoadan Other [employer] Other 04-14-2023 11:45-0400Systolic blood boeuuzra209 mm[Hg] Suhas Garrett Other [employer] Other 02-13-2023 11:30-0500Body .48 cmCarterraquel Tami Other [employer] Other 02-13-2023 11:30-0500Body mass index (BMI) [Ratio] 26.85 kg/o6VxyrySuhas Garrett Other [employer] Other 02-13-2023 11:30-0500Body omefja76.59 kgSuhas Garrett Other [employer] Other 02-13-2023 11:30-0500Diastolic blood toazhvoa35 mm[Hg] Suhas Garrett Other [employer] Other 02-13-2023 11:30-0500Respiratory rate16 /minSuhas Garrett Other [employer] Other 02-13-2023 11:30-7703LuZ1% (BldA) [Mass fraction]98 % Suhas Garrett Other [employer] Other 02-13-2023 11:30-0500Systolic blood bcxmahph444 mm[Hg] Suhas Garrett Other [employer] Other 11-09-2022 11:45-0500Body .48 cmSuhas Garrett Other [employer] Other 11-09-2022 11:45-0500Body mass index (BMI) [Ratio] 26.88 kg/z8CimvuSuhas Garrett Other [employer] Other 11-09-2022 11:45-0500Body wwanfr47.68 kgCarterraquel Garrett Other [employer] Other 11-09-2022 11:45-0500Diastolic blood fvzsawbi99 mm[Hg] Suhas Tami Other [employer] Other 11-09-2022 11:45-0500Respiratory rate16 /minSuhas Garrett Other [employer] Other 11-09-2022 11:45-3779InN0% (BldA) [Mass fraction]99 % Suhas Garrett Other [employer] Other 11-09-2022 11:45-0500Systolic blood wxlccsxo998 mm[Hg] Suhas Garrett Other [employer] Other 09-16-2022 10:15-0400Body qubbso012.48 cmSuhas Garrett Other [employer] Other 09-16-2022 10:15-0400Body mass index (BMI) [Ratio] 27.07 kg/r6TxcnfSuhas Garrett Other [employer] Other 09-16-2022 10:15-0400Body aoqfau99.13 kgSuhas Garrett Other [employer] Other 09-16-2022 10:15-0400Diastolic blood whpsodgt33 mm[Hg] Suhas Garrett Other [employer] Other 09-16-2022 10:15-0400Respiratory rate16 /minSuhas Garrett Other [employer] Other 09-16-2022 10:15-5796UqN5% (BldA) [Mass fraction]97 % Suhas Garrett Other [employer] Other 09-16-2022 10:15-0400Systolic blood cwjvevpv143 mm[Hg] Suhas Garrett Other [employer] Other 09-15-2022 10:45-172085 1Bprimo Garrett Work Phone: 1([phone]-[place] [address] Work Phone: Comment on above:[id number] 15:45-0400Body bivgls422.48 cmSuhas Garrett Other [employer] Other 09-08-2022 15:45-0400Body mass index (BMI) [Ratio]26.7 kg/t1BwsutSuhas Garrett Other [employer] Other 09-08-2022 15:45-0400Body ywhfrc35.23 kgSuhas Garrett Other [employer] Other 09-08-2022 15:45-0400Diastolic blood mjcphcva83 mm[Hg] Suhas Garrett Other [employer] Other 09-08-2022 15:45-0400Respiratory rate16 /minSuhas Garrett Other [employer] Other 09-08-2022 15:45-9353UjR9% (BldA) [Mass fraction]96 % Suhas Garrett Other [employer] Other 09-08-2022 15:45-0400Systolic blood mm[Hg] Suhas Garrett Other [facility] Other 07-20-2022 11:04-0400Body .48 cmSuhas Garrett Work Phone: [phone]-[place] [employer] 250 DO Work Phone: 1(509) [phone] 11:04-0400Body mass index (BMI) [Ratio] 26.16 kg/c2ZcykkSuhas Garrett Work Phone: mp149-8634BU-Juggd [place] [employer] 250 DO Work Phone: 1(254) 109-152807-20-2022 11:04-0400Body surface area Derived from formula1.66 p0CkwznSuhas Garrett Work Phone: mp261-7439BL-Wabha [place] [employer] 250 DO Work Phone: 1(921) 602-322107-20-2022 11:04-0400Body fsujfd88.86 kgSuhas Garrett Work Phone: 1(549) 335-6838763-8999IR-Dywpy [place] [employer] 250 DO Work Phone: 1(422) 543-987107-20-2022 11:04-0400Diastolic blood hsviumcm01 mm[Hg] Suhas Garrett Work Phone: mp994-4472HP-Kyvup [place] [employer] 250 DO Work Phone: 1(606) 702-450407-20-2022 11:04-0400Heart rate56 /minSuhas Garrett Work Phone: mp362-3831JW-Gutkv [place] [employer] 250 DO Work Phone: 1(700) 162-138407-20-2022 11:04-0400Systolic blood nholyyid436 mm[Hg] Suhas Garrett Work Phone: mp754-5055UF-Cqhhf [place] [employer] 250 DO Work Phone: 1(981) 409-485307-20-2022 11:00-0400Diastolic blood ibgkoapg20 mm[Hg] Suhas Garrett Work Phone: 1(610) [phone][facility] 250 DO Work Phone: 1(182) [phone] 11:00-0400Systolic blood jblpimel635 mm[Hg] Suhas Mayos Work Phone: 1(671) [phone]-YncokSauk Centre HospitalPrince [facility] 250 DO Work Phone: 1(876) 345-174507-07-2022 11:39-0400Diastolic blood chqvtydt84 mm[Hg] Suhas Garrett Work Phone: 1(784)[facility]-8282[facility] Work Phone: 1(474) 666-846407-07-2022 11:39-0400Systolic blood yznpurdw946 mm[Hg] Suhas Garrett Work Phone: 1(476)[address] [place] [address] Work Phone: 1(124) 302-619907-07-2022 11:22-0400Diastolic blood vwivdpvc58 mm[Hg] Suhas Garrett Work Phone: 1(693)[address] [place] [address] Work Phone: 1(846) [phone] 11:22-0400Systolic blood hstoxdbj837 mm[Hg] Suhas Mayos Work Phone: 1(302)[address] [place] [address] Work Phone: 1(958) 522-583007-07-2022 11:17-0400Body vofadr809.48 cmSuhas Garrett Work Phone: 1(979)[address] [place] [address] Work Phone: [phone] 11:17-0400Body mass index (BMI) [Ratio] 26.52 kg/x1EofoaSuhas Garrett Work Phone: 1(661)[facility] [place] [address] Work Phone: [phone] 11:17-0400Body surface area Derived from formula1.67 w2LqfgnSuhas Garrett Work Phone: 1(854)[facility] [place] [address] Work Phone: 1(569) [phone] 11:17-0400Body vtwcak61.77 kgCarterraquel Garrett Work Phone: [facility] Work Phone: 1(311)474-674-252601-13 11:17-0400Diastolic blood ljigkniu30 mm[Hg] Suhas Dalton Garrett Work Phone: [facility] Work Phone: 1(151) [phone] 11:17-0400Heart rate60 /minSuhas Dalton Garrett Work Phone: [facility] Work Phone: 1([phone]) [phone] 11:17-0400Systolic blood qdojxaka533 mm[Hg] Suhas Dalton Garrett Work Phone: [facility] Work Phone: 1(946) 331-652404-25-2022 13:30-0400Body jyuwnq463.48 cmSuhas Garrett Other [employer] Other 04-25-2022 13:30-0400Body mass index (BMI) [Ratio] 26.34 kg/j9FjymqSuhas Garrett Other [employer] Other 04-25-2022 13:30-0400Body mgoomk70.32 kgSuhas Tami Other [employer] Other 04-25-2022 13:30-0400Diastolic blood xdkuswej29 mm[Hg] Suhas Garrett Other [employer] Other 04-25-2022 13:30-0400Respiratory rate18 /minSuhas Garrett Other [employer] Other 04-25-2022 13:30-6131UzH0% (BldA) [Mass fraction]99 % Suhas Garrett Other [employer] Other 04-25-2022 13:30-0400Systolic blood okaamyqt707 mm[Hg] Suhas Garrett Other [employer] Other 02-24-2022 13:30-0500Body hmtuxk499.48 cmCarterraquel Garrett Other [employer] Other 02-24-2022 13:30-0500Body mass index (BMI) [Ratio] 26.52 kg/z2Fwbzf Tami Other [employer] Other 02-24-2022 13:30-0500Body utuqcq86.77 kgCarterraquel Garrett Other [employer] Other 02-24-2022 13:30-0500Diastolic blood jkvrntxu44 mm[Hg] Suhas Tami Other [employer] Other 02-24-2022 13:30-0500Respiratory rate16 /minSuhas Mayoadan Other [employer] Other 02-24-2022 13:30-6095PbG5% (BldA) [Mass fraction]99 % Suhas Garrett Other [employer] Other 02-24-2022 13:30-0500Systolic blood zhiagjtg938 mm[Hg] Suhas Tami Other [employer] Other 11-18-2021 13:30-0500Body amkpbt451.48 cmSuhas Garrett Other [employer] Other 11-18-2021 13:30-0500Body mass index (BMI) [Ratio] 25.97 kg/p1ZjubuSuhas Garrett Other [employer] Other 11-18-2021 13:30-0500Body kmgloc08.41 kgSuhas Garrett Other [employer] Other 11-18-2021 13:30-0500Diastolic blood adbakcln45 mm[Hg] Suhas Garrett Other [employer] Other 11-18-2021 13:30-0500Respiratory rate17 /minSuhas Garrett Other [employer] Other 11-18-2021 13:30-6841JqO7% (BldA) [Mass fraction]98 % Suhas Garrett Other [employer] Other 11-18-2021 13:30-0500Systolic blood oruorhbk768 mm[Hg] Suhas Garrett Other [employer] Other Encounters Encounter DateEncounter TypeCare ProviderFacilityStart: 04-18-2025 End: 30-91-6317fwemzcflyhOjtqvff Vytautas Giedraitis MDFacility:PM [place] Start: 04-04-2025 End: 11-49-2069ewtaupgowrEkhoudp Vytautas Giedraitis MDFacility:[facility] [place] Start: 02-14-2025 End: 04-36-9978iaaskxcsoxKiglszh Vytautas Giedraitis MDFacility:[facility] Start: 01-14-2025 End: 05-59-5870Vbujrs outpatient visit 25 minutesHasiva Wolf MD Work Phone: [facility] HospitalComment on above:Nonrheumatic aortic valve stenosis (Primary Dx); 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; Hyperlipidemia, unspecified hyperlipidemia type; PMR (polymyalgia rheumatica) (Multi); Hypothyroidism, unspecified type; BMI 27.0-27.9,adult; Never smoked any substance; OverweightStart: 01-14-2025 End: 67-33-8346qdgqyjqucuUGBLBNPiedmont [facility] AmbulatoryStart: 12-21-2024 End: 32-18-2790Hjewhptrah hospital visit by physicianSusie Baker Echo/Vasc Room [address] [place], [place] [address]Comment on above:Aortic valve stenosis, etiology of cardiac valve disease unspecifiedStart: 12-21-2024 End: 23-56-6775hyrwjhnaseLOROSQSelect Medical Specialty Hospital - Trumbulltart: 12-07-2024 End: 89-59-7832Yjyxbc outpatient visit [address] BURGER Work Phone: uh [facility] HealthComment on above: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 (Primary Dx); BMI 26.0-26.9,adultStart: 12-07-2024 End: 77-02-6499cwyxpzlphpVHSYNRutherford Regional Health System AmbulatoryStart: 10-25-2024 End: 96-10-9298zdoeehkgdmYenwiyqJonny Weston MDFacility:[facility] Start: 09-13-2024 End: 29-11-1938xpnwarfuonMpnzuyyJonny Weston MDFacility:[facility] Start: 07-28-2024 End: 17-28-4317aofniokavsJhqwe KunsFacility:[facility] Start: 05-25-2024 End: 15-10-9952npssflgxqnXkbte KunsFacilohiohealth grant medical center:[facility] Start: 04-16-2024 End: 65-02-3169Imhhmj outpatient visit 25 Arcenio Wolf MD Work Phone: uh [facility] on above:Aortic valve stenosis, etiology of cardiac valve disease unspecified (Primary Dx); Essential hypertension; Hyperlipidemia, unspecified hyperlipidemia type; Never smoked any substance; BMI 26.0-26.9,adult; Hypothyroidism, unspecified typeStart: 04-16-2024 End: 41-53-3147osfnvdtzqnONJDTX [facility] AmbulatoryStart: 02-11-2024 End: 04-39-7747Wojxvszmhj hospital visit by Julia Baker Echo[facility] 2[facility]Comment on above:Nonrheumatic aortic valve stenosis; Aortic valve stenosis, etiology of cardiac valve disease unspecifiedStart: 02-11-2024 End: 24-26-[address]usdbqvsxuYEDABQ [facility] CenterStart: 10-14-2023 End: 53-96-4399lwwliojkxpMkrdv KunsFacility:[facility] Start: 09-03-2023 End: 75-83-9603mwrkhatywfYrged KunsFacility:[facility] Start: 07-18-2023 End: 89-94-6506vawvnzvdhwXcvtv Kuns Other [employer] Other Start: 99-20-8652Mcdkdvvuc encounterBryraquel Sommers [facility] [place]Start: 07-15-2023 End: 25-20-8800lmnzlkihsuEftmb Kuns Other [employer] Other Start: 01-75-0187Unqvmxgis encounterBryraquel Sommers [facility] [place]Start: 07-10-2023 End: 26-61-6405jgwkwistloFugbt Kuns Other [employer] Other Start: 39-45-3354Ggnzbmgde encounterBryraquel ManciniG [facility] [place]Start: 07-07-2023 End: 92-90-1502jytzbpfrwxTqvsf Kuns Other [employer] Other Start: 37-53-4265Wnmoyszct encounterBryraquel GarrettFPG [facility] [place]Start: 07-04-2023 End: 16-57-1644sbkaloqunrTvfzt Kuns Other [employer]Restaro Other Start: 54-93-6055Dzrceu outpatient visit 15 minutes [facility] [place]Start: 06-19-2023 End: 95-22-8387jfecyqyezmEqaxa Kuns Other [employer]Rest[employer] Other Start: 23-41-5947Ohzbvhvri encounterBryraquel GarrettShravan Family Medicine [place]Start: 06-19-2023 End: 78-53-3981Kuriak outpatient visit 25 minutesMichel Wolf MD Work Phone: uh FirelandsComment on above:Aortic valve stenosis, etiology of cardiac valve disease unspecified; Essential hypertension; Hyperlipidemia, unspecified hyperlipidemia type; Never smoked any substanceStart: 05-30-2023 End: 75-77-7904mjvszfxbcxWymxj Kuns Other [employer]Restaro Other Start: 31-41-4213Jaaeqt outpatient visit 25 minutes Suhas GarrettShravan Family Medicine CastaliaStart: 05-28-2023 End: 55-74-7057bcrwzrzwuaAplnv Kuns Other noRestaro Other Start: 28-30-8080Vfdugessu encounterBryraquel Sommers [facility] CastaliaStart: 04-23-2023 End: 77-89-2668ihxkdtunosQppze Kuns Other noRestaro Other Start: 00-77-2879Tyrwkhokc encounterBryraquel [facility]mers [facility] CastaliaStart: 04-18-2023 End: 43-99-0007weraptlzziMyluq Kuns Other noRestaro Other start: 29-06-2495Xsuwmgaqd encounterSuhas [facility]mers [facility] CastaliaStart: 51-80-2120Wwczr UpdateBryraquel Garrett Work Phone: [phone]-DakfrSt. [facility] 250 DO Work Phone: Start: 02-28-2023 End: 57-90-7428jghsyzwoteQczuk Kuns Other [employer] Other Start: 52-21-5685Qqrvym outpatient visit 15 minutes Suhas [facility] [place]aliaStart: 45-24-8801qokhfrhjqzZzKathy GarrettLovelace Medical Center:9844Start: 01-27-2023 End: 04-61-7791lfifvawytdNuerc Kuns Other [employer] Other Start: 53-30-5142Paoqvzyqb encounterSuhas Sommers [facility] CastaliaStart: 86-34-9801Tqhwlx outpatient visit 25 minutesSuhas Garrett Work Phone: [phone]-GkbusSt. Francis Medical Center 250 DO Work Phone: Start: 23-99-8265zgwporzgzwNtKathy Parkahim Facility:[id number]: 12-06-2022 End: 73-34-0781geqcwczcfbJzkbr Kuns Other [employer] Other Start: 21-28-5200Rbbhjh outpatient visit 15 minutes Suhas [facility] [place]Start: 09-20-2022 End: 67-43-7094uuounhbvhpYroaa Kuns Other [employer] Other Start: 50-29-5112Kphsqo outpatient visit 15 minutes Suhas [facility] [place]aliaStart: 08-14-2022 End: 84-00-4078fkqyqvoxjxTgere Kuns Other noRestaro Other Start: 14-81-8168Zcvxebszn encounterBryraquel ManciniG [facility] CastaliaStart: 07-22-2022 End: 64-82-9160kxzwkjztcvCotzv Kuns Other noRestaro Other Start: 41-02-1378Fmykya outpatient visit 15 minutes Suhas ManciniG [facility] [place]aliaStart: 04-17-2022 End: 14-09-9952apyphuaoowBixhi Kuns Other noRestaro Other Start: 83-35-0792Kotoxe outpatient visit 15 minutes Suhas ManciniG [facility] [place]aliaStart: 04-10-2022 End: 07-06-2072ojhojshsgmHhuai Kuns Other [employer] Other Start: 53-12-0136Bdjgtoyqr encounterBryraquel GarrettFPG Family [facility] CastaliaStart: 04-03-2022 End: 84-56-5378drorkkizhmXtxtv Kuns Other noRestaro Other Start: 90-61-1326Ldflojzjz encounterBryraquel GarrettFPG [facility] CastaliaStart: 04-02-2022 End: 01-73-1679etmvtcgjaeHpnof Kuns Other noRestaro Other Start: 72-14-0681Xxfcurpke encounterBryraquel GarrettFPG [facility] CastaliaStart: 02-26-2022 End: 42-97-3722aktqpgujxlNsxja Kuns Other noRestaro Other Start: 73-21-6901Ejtlbmhjt encounterBryan GaelsFPG Family Medicine CastaliaStart: 02-25-2022 End: 12-89-4165bbsizyuoqnZbcxh Kuns Other noRestaro Other Start: 79-14-1724Tpvrbdvlz encounterSuhas Sommers [facility] [place]aliaStart: 02-22-2022 End: 13-09-6370luchakpjmbEnulq Kuns Other [employer] [facility] Z[employer] Other Start: 28-47-8097Nrskvu outpatient visit 25 minutes Suhas MayoCory Family Medicine CastaliaStart: 76-96-1603Oiesemr encounter procedureSuhas Garrett Work Phone: [phone]-Ltrco[place] [address] Work Phone: Start: 02-20-2022 End: 22-73-2819epfauxewuhDBRHSDX M MANONFacility:P4Yxunt: 02-14-2022 End: 24-97-5215srwpiyqrhbFsnnx Kuns Other [employer] Other Start: 45-41-6822Tfwrlq outpatient visit 25 minutes Suhas GaelCory Family Medicine [place]aliaStart: 01-11-2022 End: 62-00-0151skahbbmppgXfrdp Kuns Other [facility] Enterprisesh[facility] Z[employer] Other Start: 45-56-4763Sgaqecm evaluation of patient and reportCarterraquel Matthieu [facility] CastaliaStart: 72-51-9032Gspwbwfka encounter Suhas [facility]mers [facility] CastaliaStart: 71-94-8951Tismxx outpatient visit 10 minutesSuhas Garrett Work Phone: [phone]-XvuuuFairview Range Medical [facility] 250 DO Work Phone: Start: 35-39-0565vdspuwvltsUg. Bryan Patrick Kuns Facility:[id number]: 12-20-2021 End: 97-83-4050hgilgzxiskJejbw Kuns Other [employer] Other Start: 68-26-8893Ztmbjqrpv encounterBryraquel MayosFPG Family Medicine [place]aliaStart: 47-11-0940Noqufr outpatient visit 25 minutesSuhas Garrett Work Phone: [facility] Work Phone: Start: 11-02-2021 End: 98-78-4343cgamtcivicHsfgn Kuns Other noRestaro Other Start: 10-92-5498Gvtqcdkci encounterBryraquel MayosFPG [facility] [place]Start: 10-01-2021 End: 70-41-8729jupgnqzxmoEjrtm Kuns Other [facility]hannibal [facility] Zones Other Start: 15-13-1963Gxbnch outpatient visit 15 minutes Suhas GaeladanFPG Family Medicine [place]aliaStart: 09-10-2021 End: 99-51-9030cxxnrxyhhsBuwph Kuns Other noRestaro Other Start: 84-76-7197Vruuamqmb encounterBryraquel MayosFPG [facility] [place]Start: 08-20-2021 End: 00-49-8993qfxotjhgdjNgjap Kuns Other noRestaro Other Start: 72-12-9341Zwklawtfc encounterBryraquel MayosFPG [facility] [place]aliaStart: 08-02-2021 End: 59-74-0580dknebvlsfmUkydq Kuns Other noRestaro Other Start: 86-94-8874Lwadwn outpatient visit 15 minutes Suhasraquel MayosFPG Family Medicine [place]aliaStart: 07-25-2021 End: 30-84-9970zpzyunymyvQfith Kuns Other [facility] Zones Other Start: 85-28-6783Yuoruxpuy encounterSuhas Sommers [facility] [place]aliaStart: 05-08-2021 End: 37-20-7686hpxjnivitmZcnoz Kuns Other [facility] Zones Other Start: 86-43-0450Kjkmpxkox encounterSuhas Sommers Family [facility] CastaliaStart: 04-26-2021 End: 91-70-5330yidqfzurduHefuo Kuns Other [facility] Zones Other Start: 76-23-9214Qpciou outpatient visit 25 minutes Suhasraquel GarrettTruesdale [facility] Procedures DateProcedureProcedure Detail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Start: 78-05-2904Rwkm ttc r-t 2d w/wom-mode compl spec&colr Clayton Wolf MD Work Phone: Start: 23-25-6049YekxakwujpmrxlmvQmuso P Kuns Work Phone: Start: 42-12-1556PktayvrxzeyppsjnNbdeq P Kuns Work Phone: AppendectomyBryan P Kuns Work Phone: CholecystectomyBryan P Kuns Work Phone: Operation on ovaryBryan P Kuns Work Phone: ThyroidectomyBryan P Kuns Work Phone: Total colonoscopyBryan P Kuns Work Phone: Plan of Treatment DateCare ActivityDetailAuthorStart: 55-38-7671VYoH/Tdap/Td Vaccines (2 - Td or Tdap)DTaP/Tdap/Td Vaccines (2 - Td or Tdap)[facility] Start: 01-26-2026 End: 74-42-2429Prfkcql encounter npigomfcb35/20/2026 11:00 AM EDT Office Visit [facility] [address] [facility] [address] [place] [address] Michel Wolf MD [address] [place] [address] [facility]: 24-28-1742GavpjkqfjgsyoerxQsedzpkdfjtynv [facility]: 12-20-2025 End: 19-11-3027Jcfvngf encounter jojeszork06/14/2026 10:45 AM EDT Appointment [facility] [address] [facility] [address] [place] [address] [facility] 12-14-2025 End: 43-19-9765XZ Heart TransthoracicTransthoracic Echo Complete Echocardiography Routine Nonrheumatic aortic valve stenosis Expected: 12/14/2025 (Approximate), Expires: 01/14/2027[facility] Service Area Work Phone: Comment on above:Expected: 12/14/2025 (Approximate), Expires: 01/14/2027Start: 03-01-2026Medicare Annual Wellness VisitMedicare Annual Wellness Visit (AWV)[facility]: 02-10-2025 EchocardiographyEchocardiogramUnKindred [facility]: 02-07-2025 Influenza vaccinationInfluenza Vaccine (#1)[facility] Start: 01-14-2025 End: 70-64-1923KY Heart TransthoracicTransthoracic Echo Complete Echocardiography Routine Aortic valve stenosis, etiology of cardiac valve disease unspecified Expected: 01/14/2025 (Approximate), Expires: 04/16/2026[facility] Service Area Work Phone: Comment on above:Expected: 01/14/2025 (Approximate), Expires: 04/16/2026Start: 01-14-2025 End: 87-28-4994Pnzlnac encounter /08/2025 11:00 AM EDT Office Visit [address] [place] [id number] Michel Wolf MD [address] [facility] [address], [address] [place] [address] [facility]: 12-21-2024 End: 03-92-3945Wxuzanb encounter iuybagfvi71/15/2025 12:30 PM EDT Appointment [place] [address] [place] [address] [facility]: 92-44-7750FDDJC-19 Vaccine ( season)COVID-19 Vaccine ()[facility]: 03-16-2024 End: 94-02-2614Yjjzsby encounter opcpykeer66/08/2024 11:20 AM EDT Office Visit [address] [phone] Michel Wolf MD 3 [facility] 2, [facility] [address] [place] [address] [facility]: 11-12-9331Antisptwz for osteoporosisBone Density [facility]: 02-11-2024 End: 83-30-5075Qalsert encounter npunywvsr96/04/2024 12:30 PM EDT Appointment [address] [phone] [facility]: 09-12-4616PFOYB-19 Vaccine ( season)COVID-19 Vaccine ()[facility]: 02-08-2024 Influenza vaccinationInfluenza Vaccine (#1)[facility] Start: 02-08-2024 End: 92-35-2031EB Heart TransthoracicTransthoracic Echo (TTE) Complete Echocardiography Routine Aortic valve stenosis, etiology of cardiac valve disease unspecified Expected: 02/08/2024 (Approximate), Expires: 06/19/2025[facility] Service Area Work Phone: Comment on above:Expected: 02/08/2024 (Approximate), Expires: 06/19/2025Start: 37-09-1240FHY, Provider: Michel Wolf, Status: Pen, Time: 11:00 AMFUV, Provider: Michel Wolf, Status: Pen, Time: 11:00 AM-[facility] 250 DO Work Phone: Start: 28-44-5561IWTCB-19 Vaccine (5 - Moderna series) COVID-19 Vaccine (5 - Moderna series)[facility]: 98-39-8589KOHF, Provider: TATYANA HHVI ULTRASOUND 01,[id number], Status: Pen, Time: 10:45 AMECHO, Provider: TATYANA HHVI ULTRASOUND 01,[id number], Status: Pen, Time: 10:45 AM[facility] 250 DO Work Phone: Start: 76-41-1511RTX, Provider: Michel Wolf, Status: Pen, Time: 11:20 AMFUV, Provider: Michel Wolf, Status: Pen, [facility]: 11:20 AM[facility] Work Phone: Start: 09-73-7407PGUPVUS, Provider: TATYANA HHVI ULTRASOUND 01,[id number], Status: Pen, Time: 12:30 PMCAROTID, Provider: TATYANA HHVI ULTRASOUND 01,[id number], Status: Pen, Time: 12:30 [facility] Work Phone: start: 90-47-9994ALQF, Provider: TATYANA HHVI ULTRASOUND 01,[id number], Status: Pen, Time: 10:45 AMECHO, Provider: TATYANA HHVI ULTRASOUND 01,[id number], Status: Pen, Time: 10:45 [facility] Work Phone: start: 14-56-3827VKKWRQX, Provider: TATYANA HHVI ULTRASOUND 01,[id number], Status: Pen, Time: 2:30 PMCAROTID, Provider: TATYANA HHVI ULTRASOUND 01,[id number], Status: Pen, Time: 2:30 PM[facility] Work Phone: Start: 78-93-0909RLZO, Provider: TATYANA HHVI ULTRASOUND 01,[id number], Status: Pen, Time: 1:30 PMECHO, Provider: TATYANA HHVI ULTRASOUND 01,[id number], Status: Pen, Time: 1:30 PM[facility] Work Phone: Start: 17-35-9778EUDSQWNP, Provider: [facility] [employer] ASS[employer]IATE 1,[id number], Status: Pen, Time: 11:00 AMNURSEVST, Provider: [facility] 1,[id number], Status: Pen, Time: 11:00 AM[facility] Work Phone: Start: 18-72-6843Zzhbzriwi B Vaccines (1 of 3 - Risk 3-dose series)Hepatitis B Vaccines (1 of 3 - Risk 3-dose series)[facility]: 86-70-9522Xxsmvbdky A Vaccines (1 of 2 - Risk 2- dose series)Hepatitis A Vaccines (1 of 2 - Risk 2-dose series)[facility]: 83-00-3360Zjmfhpwkqc measurementCreatinine Level [facility]: 90-02-0704Iptln panelLipid Panel [facility]: 03-04-1937Medicare Annual Wellness Visit Medicare Annual Wellness Visit (AWV)[facility]: 81-02-4505Qzzieszsa measurementPotassium [facility] Start: 87-86-4038Qcaqwpd stimulating hormone measurementTSCornerstone Specialty Hospitals Shawnee – ShawneeECG 12 LeadECG 12 Lead ECG Routine 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 Ordered: 12/08/2024[facility] Service Area Work Phone: Comment on above:Ordered: 12/08/2024 End: 78-34-5008HA Heart TransthoracicALBUQUERQUE [facility]DI[facility] Service Area Work Phone: Comment on above:Once for 1 Occurrences starting 02/11/2024 until 02/11/2024 Immunizations Immunization DateImmunizationNotesCare KqcyxogrIkmamfpe93-98-6511Apqcyojmcbgg conjugate vaccine, 20-valent (PREVNAR 20)Michel Wolf MD Work Phone: [facility] Work Phone: [phone]zvy COVID-19 vaccine, 12 years and older (50mcg/0.5mL)(Spikevax)Michel Wolf MD Work Phone: [facility] Work Phone: [phone] trivalent influenza vaccine, adjuvanted, preservative freeMichel Wolf MD Work Phone: [facility] Work Phone: [phone]pp virus vaccine, unspecified formulationReuben Burns APRNSIMEON Work Phone: [facility] Work Phone: [phone]FLTSKC SYNCYTIAL VIRUS (RSV), ELIGIBLE PTS, 0.5 ML (ABRYSVO)Michel Wolf MD Work Phone: [facility] Work Phone: [phone], Seasonal, Quadrivalent, AdjuvantedMichel Wolf MD Work Phone: [facility] Work Phone: [phone]qg COVID-19 vaccine, 12 years and older (50mcg/0.5mL)(Spikevax)Michel Wolf MD Work Phone: [facility] Work Phone: [phone]yzbdm virus vaccine, unspecified formulationEly [address] [place] [address] Work Phone: [phone]eb COVID-19 Bivalent 50 MCG/0.5ML Intramuscular SuspensionBryan P Kuns Work Phone: [phone]-VjqdcApp[facility] 250 DO Work Phone: [phone] Quadrivalent 0.5 ML Intramuscular Prefilled SyringeBryan P Kuns Work Phone: [phone]-UunfhAppleton Municipal Hospital 250 DO Work Phone: [phone]zx, seasonal, injectableBryan Kuns Other Located Within [facility] [employer] Other [id number] COVID-19 Vaccine 100 MCG/0.5ML Intramuscular SuspensionBryan P Kuns Work Phone: [facility] Work Phone: [phone] COVID-19 Vaccine 100 MCG/0.5ML Intramuscular SuspensionBryan P Kuns Work Phone: [facility] Work Phone: [phone]tyywm, seasonal, injectableBryan Kuns Other Located [facility] [employer] Other [id number] COVID-19 Vaccine 100 MCG/0.5ML Intramuscular SuspensionBryan P Kuns Work Phone: [facility] Work Phone: [phone]liw COVID-19 Vaccine 100 MCG/0.5ML Intramuscular SuspensionBryan P Kuns Work Phone: [facility] Work Phone: [phone]vhyektifz polysaccharide vaccine, 23 valentBryan Kuns Other [employer] Other 09-506216-64-9628Dvfteajh trivalent influenza vaccine, adjuvanted, preservative freeBryan P Kuns Work Phone: [facility] Work Phone: [phone]ptb, seasonal, injectableBryan Kuns Other [employer] Other 09-616986-03-6443hcaxhlkey virus vaccine, unspecified formulationBryan P Kuns Work Phone: [facility] Work Phone: [phone]tylttb, seasonal, injectableBryan Kuns Other [employer] Other 11-619535-61-0029anmazw vaccine recombinantBryan Kuns Other [employer] Other 10-099987-87-2643ymygyfltc, high dose seasonal, preservative-freeBryan P Kuns Work Phone: [facility] Work Phone: [phone]soihmi, seasonal, injectableBryan Kuns Other [employer] Other 08-921685-80-8369qmfkuf vaccine recombinantBryan Kuns Other [employer] Other 12761199-21-6339rzuqice toxoid, reduced diphtheria toxoid, and acellular pertussis vaccine, adsorbedBryan Kuns Other [employer] Other 10140402-29-2815Npkdjgdi trivalent influenza vaccine, adjuvanted, preservative freeMichel Wolf MD Work Phone: [facility] Work Phone: [phone] [phone]nxfmum virus vaccine, unspecified formulationBryan P Kuns Work Phone: [facility] Work Phone: [phone] [phone]petdxv virus vaccine, unspecified formulationBryan P Kuns Work Phone: [facility] Work Phone: [phone]gkytq trivalent influenza vaccine, adjuvanted, preservative freeBryan P Kuns Work Phone: [facility] Work Phone: [phone]shifxbzjcta conjugate vaccine, 13 valent Michel Wolf MD Work Phone: [facility] Work Phone: [phone]mjflroues conjugate vaccine, 13 valent Suhasraquel Garrett Other Located [facility] [employer] Other 10-436644-08-2360Ujhscyui trivalent influenza vaccine, adjuvanted, preservative freeBryan P Kuns Work Phone: [facility] Work Phone: [phone]imwrfkck virus vaccine, unspecified formulationBryan P Kuns Work Phone: [facility] Work Phone: [phone]xmqnlcwadwt conjugate vaccine, 13 valent Suhas P Kuns Work Phone: [facility] Work Phone: [phone]hovytmdi, injectable, quadrivalent, contains preservativeBryan P Kuns Work Phone: [facility] Work Phone: [phone]748owedeepzy virus vaccine, unspecified formulationBryan P Kuns Work Phone: [facility] Work Phone: [phone]buwvseza, seasonal, injectable, preservative freeBryan P Kuns Work Phone: [facility] Work Phone: [phone]71mfgdionjq virus vaccine, whole virusBryan P Kuns Work Phone: [facility] Work Phone: [phone]dwiwbeqh, seasonal, injectableBryan P Kuns Work Phone: [facility] Work Phone: [phone]xfwzxowf virus vaccine, unspecified formulationBryan P Kuns Work Phone: [facility] Work Phone: [phone]pxhzjvae, injectable, quadrivalent, contains preservativeBryan Kuns Other Located [facility] [employer] Other 01-631243-82-0783rewuonygw virus vaccine, unspecified formulationBryan P Kuns Work Phone: [facility] Work Phone: [phone]rstorwhv virus vaccine, unspecified formulationBryan P Kuns Work Phone: [facility] Work Phone: [phone]dxxjubsx virus vaccine, unspecified formulationBryan P Kuns Work Phone: [facility] Work Phone: [phone]wgzf kddjucanp-N4E6-85, preservative-free, injectableBryan P Kuns Work Phone: [place] [address] Work Phone: [phone]20tvsotneqw virus vaccineBryan P Kuns Work Phone: [place] [address] Work Phone: [phone]jtbrmqpbkgx polysaccharide vaccine, 23 valentBryan P Kuns Work Phone: [facility] Work Phone: Payers DatePayer CategoryPayerPolicy [id number] Care (Private)[facility] Member Subscriber Plan / Payer (Effective 2022-Present) Name: Lavonne Villatoro Relation to Subscriber: Spouse Name: JACE VILLATORO Date of : 1936 (Home) [address] [place] [id number] Payer ID: [id number] (NAIC) Type: Not on file Address: [address] [place] [id number] Private Health [id number]. Medicare1.2.840.134689.1.13.647.2.7.3.087535.82849-15-9386Rxdygmi07-78-5604 [id number] 2..5.509544.80947598-22-0926Kvxpvxq Health Insurance [id number] 2..2.26486[id number] 2..1.062898.3.57[id number] 2..1.873202.3.57[id number] 2..1.847416.3.57[id number] 2.1.975394.3.57[id number] 2..1.240317.3.57[id number] 2..1.810054.3.57[id number] 2.16.840.1.051210.3.57[id number] 2.16.840.1.110203.3.57[id number] 2.16.840.1.266250.3.57[id number] 2..840.1.460706.3.57[id number] 2..840.1.459953.3.57[id number] 2..840.1.602399.3.57[id number] 2..840.1.035106.3.57[id number] 2.16.840.1.9[id number] 2.16.840.1.838847.3.579.2.531 [id number] 2.16.840.1.1[id number] 2..840.1.4[id number] 2.0.1.938140.3.579.2.531 Social History DateTypeDetailFacilityUnknown if ever smokedRestaro Other Start: 06-19-2023 End: 51-75-9451Ybp Assigned At BirthNoRestaro Other Start: 06-19-2023 End: 15-27-1440Aqirqqcj useCaffeine useUnMatagorda Regional Medical Center Work Phone: Start: 82-13-2185Rekqiry smoking status NHISNever smoked tobaccoSheltering Arms Hospital Work Phone: Start: 94-59-0185Szkosda use and exposureSmokeless tobacco non-userSheltering Arms Hospital Work Phone: Start: 90-52-8974Qjf Assigned At BirthNot on file [facility] Work Phone: Start: 06-09-2023 End: 11-63-8407Fvnzducy to SARS-CoV-2 (event)Not sureUnThe MetroHealth SystemStart: 04-16-2024 End: 93-43-0804Trltjyxeg beverage intakeCurrent drinker of alcohol (finding) [facility] Work Phone: Start: 70-40-2236WivHjucnrKcyieoukio [facility] Clinical Notes 02-15-2015 to 01-14-2025 Note Date & QrftPyguRtijjfqn47-86-9611 History of Present illness Narrative* Michel Wolf [...] By signing my name below, Richelle Sparks LPN, Scribe attest that this documentation [...] exam, discussion and plan. documented in this [facility] Work Phone: 1(644) 668-329308-08-2025 Instructions* Patient Instructions* Richelle Frey LPN - [...] through Care Everywhere. * Heart Healthy Diet (Cypriot) documented in this [facility] Work Phone: 1(901) 906-160207-01-2025 History of Present illness Narrative* Reuben Burns APRN-[facility]IGHT - 12/07/2024 3:00 PM EDT Subjective: Lavonne Villatoro is a 89 y.o. female with hypertension. She presents back to the office today for earlier follow-up with request of her family physician for hypertension management. She was last evaluated in clinic by Dr. Wofl April 2024 and at that time blood [...] documented in patient record. Reuben Burns MSN, [employer] WORK[employer]-TATTOOER, PMHNP-[facility] [place], [place] Please excuse any errors in grammar or translation related to this dictation. Voice recognition software was utilized to prepare this document. documented in this [facility] Work Phone: 1(991) 526-495807-01-2025 Instructions* Patient Instructions* JENNYFER Garsia - 12/07/2024 [...] Wolf as scheduled documented in this encounterUnThe MetroHealth System Work Phone: 1(128) 299-161007-01-2025 Miscellaneous Notes* Addendum Note - JENNYFER Garsia - 12/07/2024 3:00 PM EDTAddended by: REUBEN BURNS on: 12/08/2024 02:08 PM Modules accepted: Orders documented in this encounterUnThe MetroHealth System Work Phone: 1(205) 315-403307-01-2025 Note* Addendum Note - ARGELIA Garsia CNP - 12/07/2024 3:00 PM EDTAddended by: REUBEN BURNS on: 12/08/2024 02:08 PM Modules accepted: Orders [facility] Work Phone: 1(580) 516-159311-08-2024 History of Present illness Narrative* Michel Wolf MD - 04/16/2024 1:30 PM EST Graciela Villatoro is a 88 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 documented in this encounterSheltering Arms Hospital Work Phone: [phone] [id number] Instructions* Patient Instructions* Sherin Mendez LPN - [...] 9 month follow up [facility] Work Phone: [phone]) 107-443702-09-2024 Evaluation note* Encounter Date Diagnosis Assessment Notes Treatment Notes Treatment Clinical Notes Jul, PMR (polymyalgia rheumatica) (IC D-10 - M35.3) [employer] Other 02-06-2024 Evaluation note* Encounter Date Diagnosis Assessment Notes Treatment Notes Treatment Clinical Notes Jul, PMR (polymyalgia rheumatica) (IC D-10 - M35.3) [employer] [facility] Other 02-01-2024 Evaluation note* Encounter Date Diagnosis Assessment Notes Treatment Notes Treatment Clinical Notes Jul, Hypothyroidism (ICD-10 - E03.9) [employer] [facility] Other 01-29-2024 Evaluation note* Encounter Date Diagnosis Assessment Notes Treatment Notes Treatment Clinical Notes Jun, Hypothyroidism (ICD-10 - E03.9) Jun,Hyperthyroidism (ICD-10 - E05.90) [employer] [facility] Other 01-26-2024 Evaluation note* Encounter Date Diagnosis [...] medications in combination with eachother. Also discussed planning associate steriod use in regards to her condition. [...] sooner she is welcome to call. [employer] [facility] Other 01-11-2024 Evaluation note* Encounter Date Diagnosis Assessment Notes Treatment Notes Treatment Clinical Notes Jun, PMR (polymyalgia rheumatica) (IC D-10 - M35.3) [employer] [facility] Other 01-11-2024 History of Present illness Narrative* [...] is being tapered gradually Michel Wolf MD, FACC Review of Systems All [...] of Michel Wolf MD. [facility] Work Phone: 1(198) 832-881701-11-2024 Instructions* Patient Instructions* Yevgeniy Cortez MA - [...] time of your visit. [facility] Work Phone: 1(779) 509-514012-22-2023 Evaluation note* Encounter Date Diagnosis Assessment Notes [...] the patient get the RSV vaccine. [employer] [facility] Other 12-20-2023 Evaluation note* Encounter Date Diagnosis Assessment Notes Treatment Notes Treatment Clinical Notes May, Hypertension (ICD-10 - I10) May,Hypothyroidism (ICD-10 - E03.9) [employer] [facility] Other 11-10-2023 Evaluation note* Encounter Date Diagnosis Assessment Notes Treatment Notes Treatment Clinical Notes Apr, PMR (polymyalgia rheumatica) (IC D-10 - M35.3) [employer] [facility] Other 09-22-2023 Evaluation note* Encounter Date Diagnosis Assessment Notes Treatment Notes Treatment Clinical Notes Feb, PMR (polymyalgia rheumatica) (IC D-10 - M35.3) She was encouraged to take 2.5mg daily. Patient is agreeable. Feb,Hypertension (ICD-10 - I10) Blood pressure is satisfactory, she is to follow with cardiology as scheduled. [employer] [facility] Other 08-21-2023 Evaluation note* Encounter Date Diagnosis Assessment Notes Treatment Notes Treatment Clinical Notes Jan, Hypertension (ICD-10 - I10) [employer] [facility] Other 06-30-2023 Evaluation note* Encounter Date Diagnosis [...] very confident this is due to the [facility]. She will see Dr. Wolf in three weeks therefore was advised to make sure she discusses the swelling with him and see what he would like to do. Patient is agreeable. [employer] [facility] Other 04-14-2023 Evaluation note* Encounter Date Diagnosis Assessment Notes Treatment Notes Treatment Clinical Notes Sep, Hypertension (ICD-10 - I10) Pt is to continue with the above medications. I did provide her will a refill today. Sep,Insomnia (ICD-10 - G47.00) I encouraged pt to [...] daily. We will continue to monitor. [employer] [facility] Other 03-08-2023 Evaluation note* Encounter Date Diagnosis Assessment Notes Treatment Notes Treatment Clinical Notes Aug, PMR (polymyalgia rheumatica) (IC D-10 - M35.3) [employer] [facility] Other 02-13-2023 Evaluation note* Encounter Date Diagnosis Assessment Notes Treatment Notes Treatment Clinical Notes Jul, Hyperlipidemia (ICD-10 - E78.5) Review of blood work results with the patient today. No signs of anemia or leukemia. Liver enzymes and kidney functions are within jytoi range. 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 [employer] [facility] Other 11-09-2022 Evaluation note* Encounter Date Diagnosis [...] she can cut Apr,Hyperlipidemia (ICD-10 - E78.5) [employer] Other 11-02-2022 Evaluation note* Encounter Date Diagnosis Assessment Notes Treatment Notes Treatment Clinical Notes Apr, PMR (polymyalgia rheumatica) (IC D-10 - M35.3) [employer] [facility] Other 10-26-2022 Evaluation note* Encounter Date Diagnosis Assessment Notes Treatment Notes Treatment Clinical Notes Mar, Lumbar back pain (ICD-10 - M54.5 0) [employer] Other 09-20-2022 Evaluation note* Encounter Date Diagnosis Assessment Notes Treatment Notes Treatment Clinical Notes Feb, Elevated liver function tests (I CD-10 - R79.89) [employer] [facility] Other 09-16-2022 Evaluation note* Encounter Date Diagnosis Assessment Notes Treatment Notes Treatment Clinical Notes Feb, Acute pain of left shoulder (ICD -10 - M25.512) [facility] report reviewed from 02/20/22 . The [...] pain (ICD-10 - R10.13) The patient advised Eitzen could be causing her GI upset , [...] Boniva at her next office visit. [employer] [facility] Other 09-08-2022 Evaluation note* Encounter Date Diagnosis [...] will see how she does without it. Feb,izziness (ICD-10 - R42) I advised patient this [...] - M85.80) Noted on Lumbar x-ray. [employer] [facility] Other 08-05-2022 Evaluation note* Encounter Date Diagnosis Assessment Notes Treatment Notes Treatment Clinical Notes Jan, COVID-19 (ICD-10 - U07.1) [employer] [facility] Other 08-05-2022 Evaluation note* Encounter Date Diagnosis Assessment Notes Treatment Notes Treatment Clinical Notes Jan, Cough (ICD-10 - R05.9) In house covid test is positive. Treatment plan discussed in TE. 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 I did forward a copy of most current blood work results . [employer] [facility] Other 04-04-2022 Evaluation note* Encounter Date Diagnosis Assessment Notes Treatment Notes Treatment Clinical Notes Sep, PMR (polymyalgia rheumatica) (IC D-10 - M35.3) Sep,Hypertension (ICD-10 - I10) [employer] [facility] Other 02-24-2022 Evaluation note* Encounter Date Diagnosis [...] needed. We will continue to montior. [employer] [facility] Other 02-16-2022 Evaluation note* Encounter Date Diagnosis Assessment Notes Treatment Notes Treatment Clinical Notes Jul, PMR (polymyalgia rheumatica) (IC D-10 - M35.3) [employer] [facility] Other 11-30-2021 Evaluation note* Encounter Date Diagnosis Assessment Notes Treatment Notes Treatment Clinical Notes Apr, PMR (polymyalgia rheumatica) (IC D-10 - M35.3) [employer] [facility] Other 11-18-2021 Evaluation note* Encounter Date Diagnosis [...] Apr,Hypothyroidism (ICD-10 - E03.9) Blood work ordered. [employer] [facility] Other [id number] History general Narrative - Reported* Type Description Date Medical History Seanmaria gnicki Medical [id number], 02-15-15-mammogram-negativeMedical History 01/[id number]-ytekqcltack-sjbctm, repeat in 3 yrsMedical Anqsamy97/2017- colonoscopy- normalMedical Historyf/u with cardiology NOHCMedical HistoryECHO 09/2016Surgical HistoryAppendectomySurgical HistoryGallbladder RemovalSurgical HistoryOvarian Cyst RemovalSurgical HistoryCoccyx repairSurgical HistoryCataracts Bilateral EyesSurgical Historythyroidectomy Dr. Forbes10/14/2019Hospitalization History Childbirth [id number] HistorySee Above [employer] Other Evaluation noteNo InformationNort [employer] Other Evaluation note* Diagnosis Aortic valve stenosis, etiology of cardiac valve disease unspecified Essential hypertension Unspecified essential hypertension Hyperlipidemia, unspecified hyperlipidemia type Never smoked any substance documented in this encounter [facility] Work Phone: Evaluation note* Diagnosis Aortic valve stenosis, etiology of cardiac valve disease unspecified- Primary Essential hypertension Unspecified essential hypertension Hyperlipidemia, unspecified hyperlipidemia type Never smoked any substance BMI 26.0-26.9,adult Hypothyroidism, unspecified type documented in this encounter [facility] Work Phone: Evaluation note* Diagnosis Nonrheumatic aortic valve stenosis Aortic valve stenosis, etiology of cardiac valve disease unspecified documented in this encounter [facility] Work Phone: Evaluation note* Diagnosis 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- Primary BMI 26.0-26.9,adult documented in this encounter [facility] Work Phone: Evaluation note* Diagnosis Aortic valve stenosis, etiology of cardiac valve disease unspecified documented in this encounter [facility] Work Phone: Evaluation note* Diagnosis Nonrheumatic aortic valve stenosis- Primary 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 Hyperlipidemia, unspecified hyperlipidemia type PMR (polymyalgia rheumatica) (Multi) Polymyalgia rheumatica Hypothyroidism, unspecified type BMI 27.0-27.9,adult Never smoked any substance Overweight documented in this encounter [facility] Work Phone: Reason for visit Narrative* CV Imaging (Routine) - AuthorizedSpecialtyDiagnoses / ProceduresReferred By ContactReferred To ContactCardiology Diagnoses Aortic valve stenosis, etiology of cardiac valve disease unspecified Procedures Transthoracic Echo Complete ND ECHO TTHRC R-T 2D W/WOM-MODE COMPL SPEC&COLR D Michel Wolf MD [address] [address] Phone: tel: fax: Referral IDStatusReasonStart DateExpiration DateVisits RequestedVisits [id number] Perform Procedure [facility] Work Phone: Chief Complaint * LAVONNE [...] being tapered gradually * Michel Wolf MD, [facility] Family History No Family History Records [...] PMR (polymyalgia rhe umatica) (M35.3) Referral Organization [facility] Family Medicin e Groom Referring Provider First Name Suhas Referring Provider Last Name Tami Referring Provider Specialty Family Prac sukhjinder Referred Organization [facility] [place] Address [address] [place] [place],[address] Referred Provider Specialty Rheumatology Referral Priority Routine [...] W/WOM-MODE COMPL SPEC&COLR D Michel Wolf MD [address] [place] [address] [address], [address] [address] Referral IDStatusReasonStart DateExpiration DateVisits RequestedVisits [id number] Review Perform Procedure /[id number] / ProceduresReferred By ContactReferred To ContactCardiology Diagnoses Aortic valve stenosis, etiology of cardiac valve disease unspecified Procedures Follow Up In Cardiology Michel Wolf MD [address] [facility] 2, [address] [address] Michel Wolf MD [address] [place] [address], [place] [address] Referral IDStatusReasonStart DateExpiration DateVisits RequestedVisits [id number]/11/20241/10/202511 Additional Source Comments REASON FOR VISIT (unrecogniz ed section and content) ReasonCommentsFollow-up9 month, echocardiogram resultsSpecialtyDiagnoses / ProceduresReferred By ContactReferred To ContactCardiology Diagnoses Aortic valve stenosis, etiology of cardiac valve disease unspecified Procedures Follow Up In Cardiology Michel Wolf MD [address] [place] [address] Phone: tel: fax: Michel Wolf MD [address] [place] [address], [place] [address] Phone: tel: fax: Referral IDStatusReasonStart DateExpiration DateVisits RequestedVisits [id number]/8/202411/[id number] CommentsFollow-uo4bVcdrnkqd IDStatusReasonStart DateExpiration DateVisits RequestedVisits [id number]/11/20241/10/[id number] Diagnoses / ProceduresReferred By ContactReferred To ContactCardiology Diagnoses Nonrheumatic aortic valve stenosis Procedures Transthoracic Echo (TTE) Complete ND ECHO TRANSTHORC R-T 2D W/WO M-MODE REC F-UP/LMTD ND DOP ECHOCARD COLOR FLOW VELOCITY MAPPING ND DOP ECHOCARD PULSE WAVE W/SPECTRAL F-UP/LMTD STD Michel Wolf MD [address] [address], [place] [address] Referral IDStatusReasonStart DateExpiration DateVisits RequestedVisits [id number] Perform Procedure [id number]-og ClearancePOC for spinal cord stimulator, scheduled 12.13.[address] Weston. INFORMATION SOURCE (unrecogn ized section and content) DATE CREATED AUTHOR 03/06/2022 [facility] DATE CREATED AUTHOR AUTHOR'S ORGANIZ ATION 12/25/2022 [facility] DATE CREATED AUTHOR AUTHOR'S ORGANIZ ATION 12/25/2022 [employer] DATE CREATED AUTHOR AUTHOR'S ORGANIZ ATION 03/03/2023 [facility] DATE CREATED AUTHOR AUTHOR'S ORGANIZ ATION 07/29/2024 [facility] DATE CREATED AUTHOR AUTHOR'S ORGANIZ ATION 12/25/2024 [facility] DATE CREATED AUTHOR AUTHOR'S ORGANIZ ATION 01/16/2025 [facility] DATE CREATED AUTHOR AUTHOR'S ORGANIZ ATION 04/21/2025 [facility] Care Teams (unrecognized sec tion and content) Team MemberRelationshipSpecialtyStart DateEnd Date Suahs Garrett DO PCP - General06/09/99Team MemberRelationshipSpecialtyStart DateEnd Date Suhas Garrett DO [address] [place] [address] [facility] - [facility]01/30/24Team MemberRelationshipSpecialtyStart DateEnd Date Suhas Garrett DO [address] [place] [address] [facility] - [facility]01/30/24Team MemberRelationshipSpecialtyStart DateEnd Date Suhas Garrett DO [address] [place] [address] PCP - GeneralFamily Medicine01/30/24Team MemberRelationshipSpecialtyStart DateEnd Date Suhas Garrett, DO [address] [place] [address] PCP - GeneralFamily Medicine01/30/24Team MemberRelationshipSpecialtyStart DateEnd Date Suhas Garrett, DO [address] [place] [address] PCP - GeneralFamily Medicine01/30/24 FOR RECORDS PERTAINING [...] BE BASED ON THE PRIMARY CLINICAL RECORDS. [facility] [employer] provides no warranty or guarantee of the accuracy or completeness of information in this document.
--- NOTE | 2025-05-16 13:32 | PM.CN ---
Consult Note: HPI Data of Consult Patient: known to practice within the last 3 years Consult date: 05/16/25 Requesting Physician: Gloria Weston MD Primary Care Provider: Suhas Arizmendi DO Consult Narrative Reason for consult: low back pain Narrative: 89yof who presents for assessment. continues to do fairly well after scs implant 6 weeks ago. continues to use grabber so that she does not have to bend. uses tylenol and gabapentin, which helps control her pain. denies adverse med side effects. cc:: CC: Gloria Weston MD Review of Systems ROS Status of ROS 10 or more systems reviewed and unremarkable except as noted in history and below [facility] Medical History 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 ?I10 - Essential (primary) hypertension (ICD-10) Lumbar stenosis with neurogenic claudication ?M48.062 - Spinal stenosis, lumbar region with neurogenic claudication (ICD-10) Back pain ?M54.9 - Dorsalgia, unspecified (ICD-10) Shoulder pain ?M25.519 - Pain in unspecified shoulder (ICD-10) Seizures (1987) ?R56.9 - Unspecified convulsions (ICD-10) Heartburn ?R12 - Heartburn (ICD-10) Cataract ?H26.9 - Unspecified cataract (ICD-10) Hepatic lesion ?K76.9 - Liver disease, unspecified (ICD-10) Insomnia ?G47.00 - Insomnia, unspecified (ICD-10) Lung density on x-ray ?J98.4 - Other disorders of lung (ICD-10) Multinodular thyroid ?E04.2 - Nontoxic multinodular goiter (ICD-10) Hypothyroidism (acquired) ?E03.9 - Hypothyroidism, unspecified (ICD-10) Hyperlipidemia ?E78.5 - Hyperlipidemia, unspecified (ICD-10) Aortic stenosis ?I35.0 - Nonrheumatic aortic (valve) stenosis (ICD-10) Polymyalgia rheumatica ?M35.3 - Polymyalgia rheumatica (ICD-10) Hyperthyroidism ?E05.90 - Thyrotoxicosis, unspecified without thyrotoxic crisis or storm (ICD-10) Heart murmur ?R01.1 - Cardiac murmur, unspecified (ICD-10) HTN (hypertension) ?I10 - Essential (primary) hypertension (ICD-10) Surgical History S/P epidural steroid injection ?Z92.241 - Personal history of systemic steroid therapy (ICD-10) History of cataract extraction with lens replacement H/O excision of mass ?Z98.890 - Other specified postprocedural states (ICD-10) H/O colonoscopy ?Z98.890 - Other specified postprocedural states (ICD-10) 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 - Postprocedural hypothyroidism (ICD-10) Hx of cholecystectomy ?Z90.49 - Acquired absence of other specified parts of digestive tract (ICD-10) History of ovarian cystectomy ?Z98.890 - Other specified postprocedural states (ICD-10) ?Z87.42 - Personal history of other diseases of the female genital tract (ICD-10) History of appendectomy ?Z90.49 - Acquired absence of other specified parts of digestive tract (ICD-10) Family History Other Family history of DVT Family history of aneurysm Family history of cancer Family history of diabetes mellitus Family history of heart disease Social History Within the past year, how often did you have a drink containing alcohol: monthly or less Smoking status: Never smoker Non-prescribed substance use: denies use Highest level of school completed/degree received: high school graduate Little interest or pleasure in doing things: not at all Feeling down, depressed, or hopeless: not at all Meds Home Medications and Allergies Home Medications ?Medication ?Instructions ?Recorded ?Confirmed ?Type aspirin 81 mg capsule 81 mg PO DAILY 08/25/23 04/10/25 History carvedilol 6.25 mg tablet 6.25 mg PO Q12H 08/25/23 04/10/25 History levothyroxine 100 mcg tablet 100 mcg PO DAILY 08/25/23 04/10/25 History acetaminophen 650 mg 1,300 mg PO Q12H PRN pain 11/29/24 04/10/25 History tablet,extended release amlodipine 5 mg tablet 5 mg PO DAILY 11/29/24 04/10/25 History losartan 100 1 tab PO DAILY 11/29/24 04/10/25 History mg-hydrochlorothiazide 25 mg tablet multivitamin (Daily Multi-Vitamin 1 tab PO DAILY 11/29/24 04/10/25 History tablet) gabapentin 300 mg capsule 300 mg PO Q8H 02/08/25 04/10/25 History baclofen 10 mg tablet See Rx Instructions .Route 04/06/25 04/10/25 Rx .COMPLEX PRN muscle spasm #90 tabs polyethylene glycol 3350 17 17 g PO DAILY 4 days #68 grams 04/09/25 04/10/25 Rx gram/dose oral powder (Miralax) alprazolam 0.5 mg tablet (Xanax) 0.5 mg PO BID PRN anxiety #14 tabs 04/10/25 Rx prednisone 2.5 mg tablet 2.5 mg PO DAILY 04/10/25 04/10/25 History gabapentin 300 mg capsule 300 mg PO TID #90 caps 05/03/25 Rx Allergies Allergy/AdvReac Type Severity Reaction Status Date / Time amoxicillin Allergy Mild Rash Verified 04/09/25 05:40 divalproex sodium (From Allergy Unknown hair loss Verified 04/09/25 05:40 Depakote) hydrocodone Allergy Unknown Rash Verified 04/09/25 05:40 phenytoin (From Dilantin) Allergy Unknown Rash Verified 04/09/25 05:40 alendronate sodium (From AdvReac eye pain Verified 04/09/25 05:40 Fosamax) Exam Narrative Exam Narrative: Psych-alert and oriented x 3. Attentive and appropriate, constitutionally normal, displays normal mood and affect per situation.? There are no obvious deficits in memory, reasoning, or intellect.? Skin-no obvious rashes, bruising, erythema noted to the patient's area of pain. Extremities- extremities are warm with minimal edema and palpable pulses. Lumbar-no significant tenderness to palpation noted in the lumbar spine and paraspinal musculature.? Pain is elicited with extension, and lateral rotation of the lumbar spine. Range of motion is slightly diminished with these motions due to pain.? Coordination remains intact.? Gait remains non-antalgic. Assessment and Plan Assessment and Plan (1) Lumbar stenosis with neurogenic claudication: Plan 89yof who presents for assessment. doing fairly well after scs implant 6 weeks ago. discussed that she could take 2 extra tylenol tabs at night if she woke up with pain. also discussed that she could now start increasing activities, including bending and lifting. her incisions were assessed and noted to be clean, dry, and intact. no signs of infection present. will follow up for 12 week follow up.
== END 2025-05-16 12:37 | disposition home or self-care (01) ==
LOC: PM 12:36
PROVIDERS: PCP Family Medicine; Visit Provider Anesthesiology
DX: M48.062 Spinal stenosis, lumbar region with neurogenic claudication (principal)
CPT/HCPCS: G0463

== ENCOUNTER 2025-06-07 05:33 | Emergency (ER) | payer MEDICARE, OTHER, SELFPAY ==
[2025-06-07 05:35] VITALS: BP 220/69; PULSE 61; TEMP 36.6; O2SAT 99; BMI 28.2
--- NOTE | 2025-06-07 05:49 | ED.URI1 ---
HPI - URI/Sore Throat General Chief Complaint: Upper Respiratory Infection Stated Complaint: weakness Time Seen by Provider: 06/07/25 05:35 Source: patient Limitations: no limitations History of Present Illness HPI Narrative: This 89-year-old female who lives alone and has a history of polymyalgia rheumatica and chronic back pain who recently had a spinal cord stimulator placed for her back pain and is on 20 mg of prednisone right now after having a flare of her polymyalgia rheumatica is brought to the emergency department by EMS from home. The patient states she has not been able to sleep all night. She started having a sore throat several days ago. The sore throat resolved but now she has had congestion and feels very weak. She has a dry cough. She is not having any chest pain or shortness of breath. She has no focal neurologic weakness numbness or tingling. She denies any abdominal pain nausea vomiting or diarrhea. Related Data Home Medications ?Medication ?Instructions ?Recorded ?Confirmed aspirin 81 mg capsule 81 mg PO DAILY 08/25/23 04/10/25 carvedilol 6.25 mg tablet 6.25 mg PO Q12H 08/25/23 04/10/25 levothyroxine 100 mcg tablet 100 mcg PO DAILY 08/25/23 04/10/25 acetaminophen 650 mg 1,300 mg PO Q12H PRN pain 11/29/24 04/10/25 tablet,extended release amlodipine 5 mg tablet 5 mg PO DAILY 11/29/24 04/10/25 losartan 100 1 tab PO DAILY 11/29/24 04/10/25 mg-hydrochlorothiazide 25 mg tablet multivitamin (Daily Multi-Vitamin 1 tab PO DAILY 11/29/24 04/10/25 tablet) gabapentin 300 mg capsule 300 mg PO Q8H 02/08/25 04/10/25 prednisone 2.5 mg tablet 2.5 mg PO DAILY 04/10/25 04/10/25 Previous Rx's ?Medication ?Instructions ?Recorded baclofen 10 mg tablet See Rx Instructions .Route 04/06/25 .COMPLEX PRN muscle spasm #90 tabs polyethylene glycol 3350 17 17 g PO DAILY 4 days #68 grams 04/09/25 gram/dose oral powder (Miralax) alprazolam 0.5 mg tablet (Xanax) 0.5 mg PO BID PRN anxiety #14 tabs 04/10/25 gabapentin 300 mg capsule 300 mg PO TID #90 caps 05/03/25 gabapentin 300 mg capsule 300 mg PO TID #90 caps 06/06/25 Allergies Allergy/AdvReac Type Severity Reaction Status Date / Time amoxicillin Allergy Mild Rash Verified 04/09/25 05:40 divalproex sodium (From Allergy Unknown hair loss Verified 04/09/25 05:40 Depakote) hydrocodone Allergy Unknown Rash Verified 04/09/25 05:40 phenytoin (From Dilantin) Allergy Unknown Rash Verified 04/09/25 05:40 alendronate sodium (From AdvReac eye pain Verified 04/09/25 05:40 Fosamax) Review of Systems ROS Status of ROS 10 or more systems reviewed and unremarkable except as noted in history and below [facility] Medical History 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 ?I10 - Essential (primary) hypertension (ICD-10) Lumbar stenosis with neurogenic claudication ?M48.062 - Spinal stenosis, lumbar region with neurogenic claudication (ICD-10) Back pain ?M54.9 - Dorsalgia, unspecified (ICD-10) Shoulder pain ?M25.519 - Pain in unspecified shoulder (ICD-10) Seizures (1987) ?R56.9 - Unspecified convulsions (ICD-10) Heartburn ?R12 - Heartburn (ICD-10) Cataract ?H26.9 - Unspecified cataract (ICD-10) Hepatic lesion ?K76.9 - Liver disease, unspecified (ICD-10) Insomnia ?G47.00 - Insomnia, unspecified (ICD-10) Lung density on x-ray ?J98.4 - Other disorders of lung (ICD-10) Multinodular thyroid ?E04.2 - Nontoxic multinodular goiter (ICD-10) Hypothyroidism (acquired) ?E03.9 - Hypothyroidism, unspecified (ICD-10) Hyperlipidemia ?E78.5 - Hyperlipidemia, unspecified (ICD-10) Aortic stenosis ?I35.0 - Nonrheumatic aortic (valve) stenosis (ICD-10) Polymyalgia rheumatica ?M35.3 - Polymyalgia rheumatica (ICD-10) Hyperthyroidism ?E05.90 - Thyrotoxicosis, unspecified without thyrotoxic crisis or storm (ICD-10) Heart murmur ?R01.1 - Cardiac murmur, unspecified (ICD-10) HTN (hypertension) ?I10 - Essential (primary) hypertension (ICD-10) Surgical History S/P epidural steroid injection ?Z92.241 - Personal history of systemic steroid therapy (ICD-10) History of cataract extraction with lens replacement H/O excision of mass ?Z98.890 - Other specified postprocedural states (ICD-10) H/O colonoscopy ?Z98.890 - Other specified postprocedural states (ICD-10) 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 - Postprocedural hypothyroidism (ICD-10) Hx of cholecystectomy ?Z90.49 - Acquired absence of other specified parts of digestive tract (ICD-10) History of ovarian cystectomy ?Z98.890 - Other specified postprocedural states (ICD-10) ?Z87.42 - Personal history of other diseases of the female genital tract (ICD-10) History of appendectomy ?Z90.49 - Acquired absence of other specified parts of digestive tract (ICD-10) Family History Other Family history of DVT Family history of aneurysm Family history of cancer Family history of diabetes mellitus Family history of heart disease Social History Within the past year, how often did you have a drink containing alcohol: monthly or less Smoking status: Never smoker Non-prescribed substance use: denies use Highest level of school completed/degree received: high school graduate Little interest or pleasure in doing things: not at all Feeling down, depressed, or hopeless: not at all Exam Narrative Exam Narrative: Vital signs and Nursing Notes reviewed: Patient is afebrile with normal pulse, blood pressure is elevated to 20/69, she is not hypoxic with pulse ox of 99% on room air General: Awake, alert, oriented, anxious, somewhat tearful elderly female, GCS 15, no respiratory distress HEENT: Normocephalic atraumatic, mucous membranes are moist and pink, eyes are clear, normal conjunctiva, vision is grossly intact, posterior pharynx is normal in appearance. Neck: Supple, no meningeal signs, no anterior or posterior cervical lymphadenopathy Chest: Lungs are clear to auscultation with good air entry, there is no wheezing rhonchi or rales appreciated no accessory muscle use, patient is speaking in complete sentences-no chest wall tenderness to palpation CVS: Regular rate and rhythm S1-S2, ejection murmur grade 4 out of 6 at the left sternal border, pulses are brisk and equal bilaterally ABD: Soft, nondistended, nontender, no rebound guarding or rigidity, bowel sounds are normal, no pulsatile masses appreciated Extremities: Moving all extremities, no lower extremity tenderness or swelling noted, negative Homans' sign, pulses are brisk and equal bilaterally Skin: Normal in appearance without rash,pallor, petechiae or purpura Neuro: No focal deficits Constitutional Vital Signs, click to edit/add: Last Vital Signs Temp 97.9 F 06/07/25 05:35 Pulse 61 06/07/25 05:35 Resp 18 06/07/25 05:35 BP 220/69 H 06/07/25 05:35 Pulse Ox 98 06/07/25 06:08 O2 Del Method Room Air 06/07/25 06:08 Course Vital Signs Vital signs: Vital Signs Temperature 97.9 F 06/07/25 05:35 Pulse Rate 61 06/07/25 05:35 Respiratory Rate 18 06/07/25 05:35 Blood Pressure 220/69 H 06/07/25 05:35 Pulse Oximetry 99 06/07/25 05:35 Oxygen Delivery Method Room Air 06/07/25 05:35 Temperature 97.9 F 06/07/25 05:35 Pulse Rate 61 06/07/25 05:35 Respiratory Rate 18 06/07/25 05:35 Blood Pressure 220/69 H 06/07/25 05:35 Pulse Oximetry 98 06/07/25 06:08 Oxygen Delivery Method Room Air 06/07/25 06:08 MDM - URI/Sore Throat MDM Narrative Medical decision making narrative: 89-year-old female who lives alone presents for evaluation of upper respiratory symptoms that started several days ago with a sore throat then a dry cough and nasal congestion. She has not had a fever. She has not had any chest pain or shortness of breath. She denies any dizziness or syncope. She has not had any GI related symptoms. Her lungs are clear, posterior pharynx is normal in appearance. She was medicated with Tylenol and Motrin. Her blood pressure was elevated at the time of arrival but she states she had taken her medications earlier in the morning. She is negative for COVID-19 and influenza. Urinalysis is negative for infection. Two-view chest x-ray was ordered and reviewed by myself and does not show any acute infiltrate. I explained to her that she has a upper respiratory illness likely viral in nature. She will be discharged home with a prescription for Bromfed-DM for her cough and congestion. Lab Data Labs: Lab Results 06/07/25 06/07/25 Range/Units 05:40 05:58 Urine Color Lt. yellow (YELLOW) Urine Clarity Clear (CLEAR) Urine pH 8.0 (5.0-9.0) Ur Specific [place] 1.010 (1.005-1.025) Urine Protein Negative (NEG/TRACE) mg/dL Urine Glucose (UA) Negative (NEGATIVE) mg/dL Urine Ketones Negative (NEGATIVE) mg/dL Urine Occult Blood Trace-l (NEGATIVE) Urine Nitrite Negative (NEGATIVE) Urine Bilirubin Negative (NEGATIVE) Urine Urobilinogen 0.2 (0.2-1.0) EU/dL Ur Leukocyte Esterase Negative (NEGATIVE) Urine RBC 0-2 (0-2) #/HPF Urine WBC None seen (NONE SEEN) #/HPF Ur Squamous Epith Cells None seen (NONE/RARE) #/LPF Urine Crystals None seen (None Seen) #/HPF Urine Bacteria None seen (NONE SEEN) #/HPF Urine Casts None seen (NONE SEEN) #/LPF Urine Mucus None seen (NONE SEEN) Ur Culture Indicated? No Influenza Type A Ag Negative Influenza Type B Ag Negative SARS-CoV-2 Ag (CV2AG) Negative (NEGATIVE) Discharge Plan Discharge Chief Complaint: Upper Respiratory Infection Clinical Impression: Viral URI with cough Patient Disposition: Home, Self-Care Prescriptions / Home Meds: No Action carvedilol 6.25 mg tablet 6.25 mg PO Q12H levothyroxine 100 mcg tablet 100 mcg PO DAILY aspirin 81 mg capsule 81 mg PO DAILY amlodipine 5 mg tablet 5 mg PO DAILY losartan-hydrochlorothiazide 100-25 mg tablet 1 tab PO DAILY multivitamin [Daily Multi-Vitamin] Tablet 1 tab PO DAILY acetaminophen 650 mg tablet extended release 1,300 mg PO Q12H PRN (Reason: pain) gabapentin 300 mg capsule 300 mg PO Q8H gabapentin 300 mg capsule 300 mg PO TID Qty: 90 0RF baclofen 10 mg tablet See Rx Instructions .ROUTE .COMPLEX PRN (Reason: muscle spasm) Qty: 90 2RF Rx Instructions: 1/2-1 TABLET PO TID PRN PAIN SPASM prednisone 2.5 mg tablet 2.5 mg PO DAILY alprazolam [Xanax] 0.5 mg tablet 0.5 mg PO BID PRN (Reason: anxiety) Qty: 14 0RF gabapentin 300 mg capsule 300 mg PO TID Qty: 90 0RF Rx Instructions: MUST LAST 30 DAYS polyethylene glycol 3350 [Miralax] 17 gram/dose powder 17 g PO DAILY 4 Days Qty: 68 0RF Print Language: Mohawk Instructions: Upper Respiratory Infection (ED) Referrals: Suhas Arizmendi DO [Primary Care Provider] - 1 week
[2025-06-07] MEDS: ACETAMINOPHEN 325 MG TABLET 650 MG PO (06:01)
[2025-06-07] MEDS: IBUPROFEN 600 MG TABLET PO (06:01)
[2025-06-07 06:08] VITALS: O2SAT 98
[2025-06-07 06:12] LABS: Glucose Urine UA NEGATIVE (NEGATIVE)
[2025-06-07 06:15] LABS: SARS-CoV-2 Ag NEGATIVE (NEGATIVE)
--- OUTSIDE RECORDS SUMMARY | 2025-06-07 06:15 | XMS_ITS | Clinical Summary ---
Author Organization [facility] Healthcare Address [address] [place] [place] [address] Care Team Providers Care Cable Operator Name Role Phone Unavailable Primary Care Provider Unavailabl e Social History Tobacco UseTypesPacks/DayYears UsedDateSmoking Tobacco: Never Assessed CommentsUnknownSex and Gender InformationValueDate RecordedSex Assigned at Not on fileLegal GwoEuvkna27/15/2023 7:21 PM EDTGender IdentityNot on fileSexual OrientationNot on file Last Filed Vital Signs Vital SignReadingTime TakenCommentsBlood Pressure--Pulse--Temperature-- Respiratory Rate--Oxygen Saturation--Inhaled Oxygen Concentration--Kmpsmn32.5 kg (140 lb)04/21/2020 12:00 PM PQDCufspf600.5 cm (5' 2 )04/21/2020 12:00 PM ESTBody Mass Index25.6104/21/2020 12:00 PM EST Plan of Treatment Not [place] [phone]
--- OUTSIDE RECORDS SUMMARY | 2025-06-07 06:15 | XMS_ITS | Clinical Summary ---
Author Organization [facility] Address [address] [place] [address] Phone Care Team Providers Care End Finder Twisting Department Name Role Phone Suhas Arizmendi DO Primary Care Provider [phone] Allergies Active AllergyReactionsCriticalityNoted ZtnkEwxxtiumPlsaahknkcyKowpc69/27/2023 Eye pain RxoremqnzovNuxjdRfgi39/27/3979AbntwmswvvDhmvu64/01/2025 Hair loss HydrocodoneGI KttbnVpwkav21/11/4051KtbuyodrbGkfqWpg34/27/2023Valproic Acid Iykmqmj9906/04/2023 Medications MedicationSigDispense QuantityRefillsLast FilledStart DateEnd DateStatus multivit-min/ferrous [...] Problems ProblemNoted DateDiagnosed DateBMI 27.0-27.9,adult04/16/2024Never smoked any ryshejinh56/11/2024ortic /27/2023arotid bruit06/04/2023White coat syndrome with diagnosis of lxkuafrulvhr80/27/0799Jmvxcqctjuwpyj39/27/2023 Chcbbwickvcjun81/27/2023Murmur, wwcfsmq4906/04/2023MR (polymyalgia rheumatica) 06/04/2023 Immunizations ImmunizationAdministration DatesNext DueFlu vaccine, trivalent, preservative free, HIGH-DOSE, age 65y+ (Fluzone)03/09/2019Flu vaccine, trivalent, preservative free, age 6 months and greater (Fluarix/Fluzone/Flulaval)04/05/2014 Influenza Whole03/09/2014Influenza, Seasonal, Quadrivalent, Otgnqesoln32/25/2023 ,03/21/2022Influenza, Cwksatraekn07/01/2018,04/09/2017,03/09/2016,03/09/2015, 03/09/2013,06/09/2011,06/09/2010,06/09/2009Influenza, injectable, quadrivalent 04/07/2015,04/14/2012Influenza, seasonal, brbjqlztib17/01/2020,03/04/2019 Influenza, trivalent, nabbwrajae56/30/2024,03/06/2020,03/16/2018,03/28/2017, 04/01/2016Moderna COVID-19 vaccine, 12 years and older (50mcg/0.5mL)(Spikevax) 04/07/2024,04/02/2023Moderna COVID-19 vaccine, bivalent, blue cap/uribe label *Check age/dose*04/17/2022Novel qqafizdnt-D0Z3-60, preservative-free05/30/2009 Pneumococcal conjugate vaccine, 13-valent (PREVNAR 13)05/24/2016,05/23/2016, [...] InformationValueDate RecordedSex Assigned at BirthNot on fileLegal PgiNfqmiw88/25/2022 8:57 AM ESTGender Identity Not on fileSexual OrientationNot on file Last Filed Vital Signs Vital SignReadingTime TakenCommentsBlood Eydkobwh083/7808 11:07 AM EDT Zldxz9416/08/2025 11:07 AM EDTTemperature--Respiratory Rate--Oxygen Saturation-- Inhaled Oxygen Concentration--Lgvpun97 kg (150 lb)01/14/2025 11:07 AM EDTHeight 157.5 cm (5' 2 )01/14/2025 11:07 AM EDTBody Mass Index27.44001/14/2025 11:07 AM EDT Plan of Treatment DateTypeDepartmentCare Team (Latest Contact Info)Uqpklhjbqlr92/14/2026 9:45 AM EDTAppointment at [facility] [address] [place] [phone] 01/26/2026 11:00 AM EDTOffice Visit at [facility] [place] [facility] [address] [place] [phone] Michel Wolf MD [address] [facility] [address], [address] [place], [place] [id number] Health MaintenanceDue DateLast DoneCommentsLipid Panel1936TSH Level 1936Hepatitis A Vaccines (1 of 2 - Risk 2-dose series)08/11/1955Hepatitis B Vaccines (1 of 3 - Risk 3-dose series)1996Bone Density Scan02/19/2024 2COVID-19 Vaccine ( season), 04/02/2023, 04/17/2022, Additional history existsInfluenza Vaccine (#1), 04/02/2023, 03/21/2022, Additional history existsMedicare Annual Wellness Visit (AWV)602/, 04/28/2020DTaP/Tdap/Td Vaccines (2 - Td or Tdap) Zoster MajbvlkqWwuvgxtdg70/26/2019, 02/04/2019, 10/19/2007 RSV High Risk: (Elderly (60+) or Population)Bikhyzicg54/30/2023 Pneumococcal NztpgmxSwwselots84/15/2024, 04/28/2020, 05/24/2016, Additional history existsHIB VaccinesAged OutNo longer eligible based on patient's age to complete this topicHPV VaccinesAged OutNo longer eligible based on patient's age to complete this topicIPV VaccinesAged OutNo longer eligible based on patient's age to complete this topicMeningococcal VaccineAged OutNo longer eligible based on patient's age to complete this topicRotavirus VaccinesAged OutNo longer eligible based on patient's age to complete this topic Insurance Care Teams Team MemberRelationshipSpecialtyStart DateEnd Date Suhas Arizmendi DO [address] [place] [address] PCP - GeneralFamily Medicine01/30/24
--- OUTSIDE RECORDS SUMMARY | 2025-06-07 06:15 | XMS_ITS | Clinical Summary ---
Author Organization [facility] Address [address] [place] [address] Care Team Providers Care School Traffic Guard Name Role Phone Suhas Arizmendi DO Unavailable Suhas Arizmendi DO Primary Care Provider [phone] Allergies Active AllergyReactionsCriticalityNoted DateCommentsDivalproex SodiumIntolerance 03/29/2005Phenytoin Sodium MmpysvlpOreb79/21/2005 Medications MedicationSigDispense QuantityRefillsLast FilledStart DateEnd DateStatus NORVASC 5 MG TAB Take one(1) tablet daily.Active DIOVAN HCT 160 MG-12.5 MG TAB twice a nxl471Active METOPROLOL SR 50 MG 24 HR TAB once a vdb291Active SYNTHROID 100 MCG TAB Take one(1) tablet daily.Active CALCIUM ANTACID 500 MG CHEWABLE TAB Calcium with D 600mg once a rzj237Active VIT [id number] ACID-MAG OX 100 UNIT-2.05 MG TAB Vit e 400 IU every other gfg291Active ASPIRIN 81 MG TAB once a iis874Active Family History Medical HistoryRelationCommentsNoneMotherno family history of breast cancer RelationStatusCommentsMother Social History Tobacco UseTypesPacks/DayYears UsedDateSmoking Tobacco: Never Assessed CommentsUnknownSex and Gender InformationValueDate RecordedSex Assigned at Not on fileLegal OudCkebcw03/02/2012 7:32 AM ESTGender IdentityNot on fileSexual OrientationNot on file Plan of Treatment Health MaintenanceDue DateLast DoneCommentsAnxiety Wfnpdhstw61/04/1955Depression Yoofvijxf72/04/1955DTaP,Tdap,Td Vaccine (1 - Tdap)08/11/1955Diabetes Screening 1981Pneumococcal Vaccine: 50+ (1 of 1 - PCV)1986Shingrix Vaccine (1 of 2)1986Bone Density Xqvxaaumx13/04/2002RSV Vaccine (1 - 1-dose 75+ series)08/11/2011dvance Directive Uuuvfnlkcw11/01/2025ovid-19 Vaccine (1 - 2024-26 season)2025Influenza Vaccine (#1)2025 Insurance Care Teams Team MemberRelationshipSpecialtyStart DateEnd Date Suhas Arizmendi DO [address] [place] [address] PCP - Generalmily Medicine07/23/23 Suhas Arizmendi DO [address] [place] [address] ReferringFawestborough state hospital Medicine07/23/23
--- OUTSIDE RECORDS SUMMARY | 2025-06-07 06:16 | XMS_ITS | CCD ---
Author Organization [facility] CliniSyms Care Team Providers Care Web Press Operator Apprentice Name Role Phone Suhas Garrett Unavailable Suhas [...] Suhas Garrett DO Primary Care Provider [phone] Suhas Garrett DO Primary Care Provider Suhas [...] of OnsetReaction(s) Facility (20 sources)Alendronate; Translations: [Fosamax]Drug Evyfuxz53-62-6462IyecibvMercy Health [facility] Hospital Repository (20 sources)Amoxicillin; Translations: [amoxicillin]Drug Eysvnxs07-76-7999jklta [place] [employer] Other (20 sources)Phenytoin; Translations: [Dilantin CAPS]Drug Pjhkcbd31-04-6623Azdh [place] [employer] Other (20 sources)Valproate; Translations: [Depakote ER TB24]Drug AllergyUnknoWestchester Square Medical Center [employer] Other (1 source)AlendronateDrug AllergyOhiohealth [facility] Repository (1 source)AmoxicillinDrug AllergyOhiohealth Dublin [facility] Hospital Repository (1 source)PhenytoinDrug AllergyOhiohealth Dublin [facility] Hospital Repository (1 source)ValproateDrug AllergyThe [facility] Repository (20 sources)Acetaminophen / HYDROcodoneDrug Allergyelevated liver enzymesNortUniversal Health Services [employer] Other (6 sources)AlendronateDrug Uzubcjm61-24-0608DsfanvdBarney Children's Medical Center (8 sources)HYDROcodone; Translations: [HYDROCODONE]Drug Jczrdkn05-44-6162OVUniversity Hospitals Samaritan Medical Center Work Phone: (8 sources)Valproate; Translations: [VALPROIC ACID]Drug Cmbosvu90-92-7518VxcydytMercy Health Lorain Hospital Work Phone: (1 source)AcetaminophenDrug Pwmjgnn87-85-1985VwmrlxpjwUniversity [facility]als [facility] Repository (1 source)AlendronateDrug Bawlnvd25-87-1724KxlbphkrxUniversity Hospitals [facility] Repository (1 source)AmoxicillinDrug Dtbehca95-54-0652LgnfghpmyUniversity Hospitals [facility] Center Repository (1 source)HYDROcodoneDrug Sohxevc82-07-6762RecfdwhtfUniversity Hospitals Cleveland [facility] Center Repository (1 source)PhenytoinDrug Emcqdnt02-73-5291YwxfonqhpUniversity Hospitals Cleveland [facility] Center Repository (1 source)ValproateDrug Owgcmto58-12-2759AxghjlefaUniversity Hospitals Cleveland Medical Center Repository (5 sources)Valproate; Translations: [DIVALPROEX]Drug Dhrlfye70-62-2343TejylKnox Community Hospital Work Phone: Medications Current Medications MedicationDrug [...] mg oral tablet (20 sources)Nonsteroidal Anti-inflammatory DrugStart: 23-54-4926bctz 1 tablet by mouth twice daily at mealtime as neededIbuprofen 600 MG 1 tablet with food or milk as needed Orally Twice a day as needed with food Jan, ActiveStart: 24-52-6909towk 1 tablet by mouth three times daily at mealtime as needed Ibuprofen 600 MG 1 tablet with food or milk as needed Orally TID PRN with food Jan, Not-Takinglevothyroxine sodium 0.1 mg oral tablet (20 sources)l-ThyroxineStart: 08-64-9811ypox 1 tablet by mouth once daily levothyroxine [...] ActivepredniSONE 10 mg oral tablet (20 sources)Start: 39-73-3048nvne 1 tablet by mouth once dailypredniSONE (Deltasone) 10 mg tablet Take 1 tablet (10 mg) by mouth once daily. 12/09/2024 ActiveStart: 29-66-7509tkhe 2 tablets by mouth once dailypredniSONE 10 MG 2 tablets x 7 days, 1 tablet x 7 days, then 1/2 tablet or 5mg daily thereafter Orally as directed Jun, ActiveStart: 05-95-8650tekr 1 tablet by mouth every twenty-four hourspredniSONE 20 MG 1 tablet Orally Once a day for 10 days Apr, ActiveStart: 58-98-3161bjcn 1 tablet by mouth every other day predniSONE 2.5 MG 1 tablet Orally alternating every other day with 5mg Nov, ActiveStart: 17-85-2199aofh 1 tablet by mouth every twenty-four hours predniSONE 2.5 MG 1 tablet Orally Once a day Apr, ActiveStart: 32-41-4665cncv 1 tablet by mouth every twenty-four hourspredniSONE 10 MG 1 tablet Orally Once a day for 90 days Apr, ActiveStart: 30-21-7988wuyq 1 tablet by mouth every twenty-four hourspredniSONE 20 MG 1 tablet Orally Once a day for 30 day(s) Apr, ActiveStart: 10-97-1375xilqfqNPQT 20 MG 1 tablet with food or milk Orally 1 tab twice a day x 5 days , 1 tab every day x 5days for 10 days Feb, ActiveStart: 67-14-7054wpuu 1 tablet by mouth at mealtime, then take 1 tablet by mouth twice daily, then take 1 tablet by mouth once dailypredniSONE 20 MG 1 tablet with food or milk Orally 1 tab twice a day x 5 days , 1 tab once a day X 5 days Jan, ActiveStart: 76-71-3867zucz 1 tablet by mouth every other daypredniSONE 5 MG 1 tablet Orally alternating every other day with 2.5mg Apr, ActiveStart: 02-22-2020 End: 06-71-9135cqjpnrYJQD (Deltasone) 5 mg tablet Take 1 tablet (5 mg) by mouth once daily. Alternating 2.5 tab 11/02/2021 01/14/2025 Discontinued (Dose adjustment)Start: 90-05-1735spkd 1 tablet by mouth every twenty-four hours predniSONE 2.5 MG 1 tablet Orally Once a day Feb, ActiveStart: 50-36-9655ugrf 1.5 tablets by mouth every twenty-four hourspredniSONE 5 MG 1.5 tablets Orally Once a day Feb, ActivetraMADol hydrochloride 50 mg oral tablet (5 sources)Opioid AgonistStart: 82-45-5731fara 1 tablet by mouth every eight hourstraMADol HCl 50 MG 1 tablet as needed Orally tid Jun, ActiveStart: 49-86-7757kfby 1 tablet by mouth every twenty-four hourstraMADol HCl 50 MG 1 tablet as needed Orally Once a day Jun, ActiveTylenol Arthritis Pain 650 MG (20 sources)Tylenol Arthritis Pain 650 MG as directed Orally Not-TakingTylenol Arthritis Pain 650 MG as directed Orally Active Completed/Discontinued Medications MedicationDrug Class(es)DatesSig (Normalized)Sig (Original)amLODIPine 10 mg oral tablet (20 sources)Dihydropyridine Calcium Channel BlockerStart: 89-94-1159fxst 1 tablet by mouth every twenty-four hoursNorvasc 5 MG 1 tablet Orally Once a day for 90 day(s) May, ActiveStart: 06-03-2017 End: 69-80-3832yhzc 1 tablet by mouth once dailyamLODIPine (Norvasc) 10 mg tablet Take 1 tablet (10 mg) by mouth once daily. 12/13/2021 12/07/2024 D iscontinued (Dose adjustment)calcium carbonate 1500 mg oral tablet (11 sources) End: 64-46-8222yxjj 1 tablet by mouth once dailycalcium carbonate [...] 24-Dec-2022 DO ActiveFish Oils (4 sources) End: 06-92-5574mpmf 1 capsule by mouth once dailyomega-3 (Fish [...] Not-Takingmelatonin 5 mg oral tablet (20 sources)Start: 86-12-0164svnu 1 tablet by mouth every twenty-four hours Melatonin 5 MG 1 tablet in the evening Orally Once a day Sep, Not-Taking/PRNmethylPREDNISolone (20 sources)CorticosteroidStart: 85-87-6120ZSTF-MEDROL 41 - 125 mg Jan, 125 mgMulti Vitamin Oral Tablet (7 sources)take 1 tablet by mouth once dailyMulti Vitamin Oral Tablet TAKE 1 TABLET DAILY. Quantity: 0 Refills: 0 Ordered: 13-Dec-2021 DO ActiveOmega 3 500 CAPS (4 sources)[place] 3 500 CAPS TAKE 1 CAPSULE Daily Quantity: 0 Refills: 0 Ordered: 13-Dec-2021 DO Activeoxycodone HCl/acetaminophen (OXYCODONE-ACETAMINOPHEN ORAL) (2 sources)Start: 02-23-2024 End: 59-37-8468ikujytpcv HCl/acetaminophen (OXYCODONE-ACETAMINOPHEN ORAL) Take by mouth. 02/23/2024 12/07/2024 Discontinued (Therapy completed)Start: 63-41-5877fngbpydyy HCl/acetaminophen (OXYCODONE-ACETAMINOPHEN ORAL) Take by mouth. 02/23/2024 ActivetraZODone hydrochloride 50 mg oral tablet (16 sources)Serotonin Reuptake InhibitorStart: 75-46-8244fxcs 1 tablet by mouth every twenty-four hourstraZODone HCl 50 MG 1 tablet at bedtime as needed Orally Once a day prn Jul, Not-Taking/PRN Problems Active Problems Problem ClassificationProblemDateDocumented DateEpisodic/ChronicAbdominal pain (20 sources)Generalized abdominal pain; Translations: [Generalized abdominal pain]Onset: 02-22-2022 Resolved: 00-00-7899LsmzyqdqDzijlblgopeqjg/social admission (20 sources)Advance directive discussed with patient; Translations: [Other specified counseling]EpisodicCoronary atherosclerosis and other heart disease (20 sources)Coronary arteriosclerosis; 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 false pass coronary artery without angina pectoris]Onset: 09-03-2023 ChronicDisorders of lipid metabolism (20 sources)Hyperlipidemia; Translations: [Hyperlipidemia, unspecified]Onset: 04-26-2021 Resolved: 36-33-9762TomiwriIuvgnhpqz hypertension (20 sources)Hypertensive disorder; Translations: [Essential (primary) hypertension]Onset: 09-10-2021 Resolved: 46-59-6767LasvfcxVyvua valve disorders (20 sources)Aortic valve stenosis; Translations: [Aortic valve disorders]Onset: 54-32-3321WodcrbtQyggwstgpwy deficiencies (1 source)Vitamin D deficiency, unspecified; Translations: [Vitamin D deficiency, unspecified]Onset: 44-32-2517EwtjsiaMammlkhbramu (1 source)Osteoporosis; Translations: [Age-related osteoporosis without current pathological fracture]ChronicOther aftercare (1 source)Other manager long term care (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; Translations: [OTH HALF-WAY CURRENT DRUG THERAPY]Onset: 27-47-3992BpdxkzteHthez bone disease and musculoskeletal deformities (20 sources)Pain of left shoulder blade; Translations: [Other specified disorders of bone, shoulder]EpisodicOther bone disease and musculoskeletal deformities (20 sources)Osteopenia; Translations: [Other specified disorders of bone density and structure, multiple sites]EpisodicOther circulatory disease (20 sources)Cardiovascular symptoms; Translations: [Other specified symptoms and signs involving the circulatory and respiratory systems]EpisodicOther connective tissue disease (20 sources)Polymyalgia rheumatica; Translations: [Polymyalgia rheumatica]Onset: 809563-84-0265HxcinfyQealf connective tissue disease (20 sources)Polymyalgia rheumatica; Translations: [Polymyalgia rheumatica]Onset: 04-26-2021 Resolved: 62-40-3198TiiyldyGgvym connective tissue disease (1 source)Other muscle spasm; Translations: [OTHER MUSCLE SPASM]Onset: 02-30-1962ZlwvaqpjCybfh liver diseases (20 sources)Disease of liver; Translations: [Liver disease, unspecified]Chronic Other lower respiratory disease (20 sources)Radiologic increased density of lung; Translations: [Other disorders of lung]EpisodicOther non-epithelial cancer of skin (20 sources)Basal cell carcinoma of skin; Translations: [Basal cell carcinoma of skin, unspecified]EpisodicOther non-traumatic joint disorders (6 sources)Pain in left shoulder; Translations: [PAIN IN LEFT SHOULDER]Onset: 02-20-2022 Resolved: 12-82-7115VbveuggpPlsky non-traumatic joint disorders (20 sources)Shoulder pain; Translations: [Pain in left shoulder]EpisodicOther nutritional; endocrine; and metabolic disorders (14 sources)Overweight in adulthood with body mass index of 25 or more but less than 30; Translations: [Overweight]Onset: 403870-58-2004ZgientjnHyonk nutritional; endocrine; and metabolic disorders (1 source)Overweight; Translations: [Overweight]40-35-4567FluktsbnAvwlg nutritional; endocrine; and metabolic disorders (2 sources)Body mass index (BMI) 27.0-27.9, adult; Translations: [Body mass index (BMI) 27.0-27.9, adult]Onset: 35-66-9637EgbzubdnRkucq screening for suspected conditions (not mental disorders or infectious disease) (20 sources)Other specified abnormal findings of blood chemistry; Translations: [Elevated liver function tests]Onset: 02-26-2022 Resolved: 46-07-6633DxffoqhqNfwnmgmh codes; unclassified (20 sources)Insomnia; Translations: [Insomnia, unspecified]EpisodicResidual codes; unclassified (20 sources)Family history of malignant neoplasm of gastrointestinal tract; Translations: [Family history of malignant neoplasm of digestive organs]Episodic Residual codes; unclassified (20 sources)Difficulty sleeping ; Translations: [Sleep disorder, unspecified] EpisodicResidual codes; unclassified (3 sources)Insomnia, unspecifiedOnset: 10-01-2021 Resolved: 99-91-8081QuvaiogbGirsjfyv codes; unclassified (9 sources)Never smoked any substance; Translations: [Other specified health status]Onset: 774267-91-6189JxzaphyoPvgexqnu codes; unclassified (2 sources)Other specified health status; Translations: [Other specified health status]Onset: 91-33-5778PfvyyjezWgssozykxna; intervertebral disc disorders; other back problems (13 sources)Low back pain; Translations: [Lumbar back pain]EpisodicSprains and strains (20 sources)Strain of muscle and/or tendon of lower leg; Translations: [Strain of unspecified muscle and tendonat ankle and foot level, left foot, subsequent encounter]EpisodicThyroid disorders (20 sources)Hypothyroidism; Translations: [Hypothyroidism, unspecified]Onset: 04-26-2021 Resolved: 48-68-7008Quxwyht Past or Other Problems Problem ClassificationProblemDateDocumented DateEpisodic/ChronicConditions associated with dizziness or vertigo (2 sources)Dizziness and giddiness; Translations: [Dizziness and giddiness] Onset: 02-14-2022 Resolved: 20-56-4205McxdmysiRosef valve disorders (20 sources)Heart murmur; Translations: [Cardiac murmur, unspecified]Onset: 10-01-2021 Resolved: 52-24-9331XoomxlifMtugz acquired deformities (1 source)Spondylolisthesis, lumbar regionOnset: 02-14-2022 Resolved: 61-78-6970OjiyxwqoOotjr bone disease and musculoskeletal deformities (1 source)Other specified disorders of bone density and structure, unspecified siteOnset: 02-14-2022 Resolved: 25-40-3336OfdcgaikWmrmn bone disease and musculoskeletal deformities (1 source)Other specified disorders of bone, shoulderOnset: 02-22-2022 Resolved: 19-88-0259RmsdbruqCdsxf bone disease and musculoskeletal deformities (1 source)Other specified disorders of bone density and structure, multiple sitesOnset: 02-22-2022 Resolved: 33-92-8744FwlsqtjnLacur circulatory disease (20 sources)Carotid bruit; Translations: [Other symptoms involving cardiovascular system]Onset: 06-04-2023 Resolved: 050297-22-3430FdkywxsbAtasa circulatory disease (1 source)Other specified symptoms and signs involving the circulatory and respiratory systems; Translations:[Other specified symptoms and signs involving the circulatory and respiratory systems]Onset: 87-97-3728WhihhuxuAechk liver diseases (1 source)Abnormal levels of other serum enzymes; Translations: [Abnormal levels of other serum enzymes]Onset: 20-85-7504MsxbmevcWdyln nutritional; endocrine; and metabolic disorders (2 sources)Body mass index (BMI) 26.0-26.9, adult; Translations: [Body mass index (BMI) 26.0-26.9, adult]Onset: 56-16-2674KhhvbxetMgygp skin disorders (1 source)Localized swelling, mass and lump, headOnset: 04-26-2021 Resolved: 73-40-1925UdojtxdrKlvtkhvx codes; unclassified (1 source)Sleep disorder, unspecifiedOnset: 08-02-2021 Resolved: 67-81-2262IexdgplyDotenrzy codes; unclassified (1 source)Asymptomatic menopausal stateOnset: 02-14-2022 Resolved: 94-91-1117LllffuajJlmtdtlmalbb (7 sources)Never smoked tobacco; Translations: [Never smoker]Unclassified (1 source)Cough R05.9Onset: 01-11-2022 Resolved: 97-10-3651Wwplgtnqbonp (3 sources)Lumbar back pain M54.50Onset: 02-14-2022 Resolved: 50-80-1726Ppwqkgfrgikb (1 source)History of COVID-19 Z86.16Onset: 02-14-2022 Resolved: 26-66-8808Bsfdsujbrcfv (10 sources)Lumbar back pain; Translations: [Lumbar back pain]Unclassified (1 source)Vaccine counseling Z71.85Unclassified (6 sources)Onset: 06-19-2023 Resolved: Viral infection (20 sources)Disease caused by 2019-nCoV; Translations: [COVID-19]Onset: 01-11-2022 Resolved: 01-11-2022 Results Test NameValueInterpretationReference RangeFacilityTRANSTHORACIC ECHO (TTE) COMPLETEon 69-47-2916LHERESNDQLYES ECHO (TTE) [address], [address], [place] [address] TRANSTHORACIC ECHOCARDIOGRAM REPORT Patient Name: LAVONNE VILLATORO Reading Physician: [id number] Michel Wolf MD, [facility] Study Date: 12/21/2024 Ordering Provider: [id number] MICHEL WOLF MRN/PID: [id number] Fellow: Nurse: Date of /Age: 3 1935 / 89 years Cobol Application Developer: Sheridan Lemus RDCS, T Gender Assigned at F Additional Staff: : Height: 157.48 cm Admit Date: Weight: 65.77 kg Admission Status: Outpatient BSA / BMI: 1.67 m2 / 26.52 Department Location: [facility] Heart kg/m2 [place] Blood Pressure: 146 /68 mmHg Study Type: TRANSTHORACIC ECHO (TTE) COMPLETE Diagnosis/ICD: Nonrheumatic aortic (valve) stenosis-I35.0 Indication: HTN, Hyperlipidemia, 2/6 Systolic Murmur, Hypothyroid CPT Codes: Echo Complete w Full Doppler-12183 Study Detail: The following Echo studies were [...] AoV Area,Vmax: 0.85 cm (more content not included)...[facility] Transthoracicon 51-05-0642Uufylv Valve Area by Continuity of Peak Velocity0.85 mm1WnxshspmsbParkview Health Bryan Hospital Work Phone: [phone] Valve Area by Continuity of VTI0.9 cm2 [facility] Work Phone: [phone] mn bhxr48znWgSfldiqqgniParkview Health [facility] Hospital Work Phone: [phone] pk vifn95xsHbOexjmqldtjParkview Health [facility] Hospital Work Phone: [phone] pk vel3.27 m/[facility] Work Phone: [phone] vol index A/L43.4 ml/c1HgnbuqtriuParkview Health Bryan Hospital Work Phone: [phone] A4C EF76.9UnParkview Health Bryan Hospital Work Phone: [phone] Biplane EF71 %[facility] Work Phone: [phone] EF68 %[facility] Work Phone: [phone] cmUnParkview Health [facility] Hospital Work Phone: [phone] diam1.89 cmUnParkview Health Bryan Hospital Work Phone: [phone] avg E/e' ratio15.93UnParkview Health Bryan Hospital Work Phone: [phone] E/A otaht9SgisrpuiprParkview Health Bryan Hospital Work Phone: [phone] free wall pk S'11.98 cm/[facility] Work Phone: [phone]view Health [facility] Hospital Work Phone: [phone] annular plane systolic excursion2.4 cm [facility] Work Phone: [address], [address] [place] [address] TRANSTHORACIC ECHOCARDIOGRAM REPORT Patient Name: LAVONNE Bahena Physician: [id number] Michel Wolf MD, [facility] Study Date: 12/21/2024 Ordering Provider: [id number] MICHEL WOLF MRN/PID: [id number] Fellow: Nurse: Date of /Age: 3 1935 / 89 years [employer]ol Application Developer: Sheridan Lemus RDCS, RVT Gender Assigned at F Additional Staff: : Height: 157.48 cm Admit Date: Weight: 65.77 kg Admission Status: Outpatient BSA / BMI: 1.67 m2 / 26.52 Department Location: [facility] Heart kg/m2 [place] Blood Pressure: 146 /68 mmHg Study Type: TRANSTHORACIC ECHO (TTE) COMPLETE Diagnosis/ICD: Nonrheumatic aortic (valve) stenosis-I35.0 Indication: HTN, Hyperlipidemia, 2/6 Systolic Murmur, Hypothyroid CPT Codes: Echo Complete w Full Doppler-87906 Study Detail: The following Echo studies were [...] content not included)...Michel Kenney MD - 12/21/2024 [facility] [address] [place] [address], [address], [place] [address] TRANSTHORACIC ECHOCARDIOGRAM REPORT Patient Name: LAVONNE VILLATORO Reading Physician: [id number] Michel Wolf MD, [facility] Study Date: 12/21/2024 Ordering Provider: [id number] MICHEL WOLF MRN/PID: [id number] Fellow: Nurse: Date of /Age: 3 1935 / 89 years Cobol Application Developer: Sheridan Lmeus RD, T Gender Assigned at F Additional Staff: : Height: 157.48 cm Admit Date: Weight: 65.77 kg Admission Status: Outpatient BSA / BMI: 1.67 m2 / 26.52 Department Location: [facility] kg/m2 [place] Blood Pressure: 146 /68 mmHg Study Type: TRANSTHORACIC ECHO (TTE) COMPLETE Diagnosis/ICD: Nonrheumatic aortic (valve) stenosis-I35.0 Indication: HTN, Hyperlipidemia, 2/6 Systolic Murmur, Hypothyroid CPT Codes: Echo Complete w Full Doppler-83381 Study Detail: The following Echo studies were [...] cm (18-25cm) LVOT VTI: (more content not included)...[facility] Work Phone: UnParkview [facility] Work Phone: Complete Blood Count Auto Diffon 66-69-5894Nemiwsmph (Bld) [#/Vol]0.1 10*3/uLNormal0.0-0.2[facility] Physician GroupComment on above:Performed By: #### [id number], CMP, TSH3, LIPID, CBC, T4F, ESR #### [place] [address] USABasophils/100 WBC (Bld)1.1 %Normal.The [facility] Physician GroupComment on above:Performed By: #### [id number], CMP, TSH3, LIPID, CBC, T4F, ESR #### [place] [address] USAEosinophils (Bld) [#/Vol]0.1 10*3/uLNormal0.0-0.45The [facility] Physician GroupComment on above:Performed By: #### [id number], CMP, TSH3, LIPID, CBC, T4F, ESR #### [place] [address] USAEosinophils/100 WBC (Bld)2.2 %Normal.The [facility] Physician GroupComment on above:Performed By: #### [id number], CMP, TSH3, LIPID, CBC, T4F, ESR #### [place] [address] USAErythrocyte distribution width (RBC) [Ratio]13.5 %Normal 11.9-15.3The [facility] Physician GroupComment on above:Performed By: #### [id number], CMP, TSH3, LIPID, CBC, T4F, ESR #### [place] [address] USAHematocrit (Bld) [Volume fraction]37.9 %Ecuugg00.0-46.4The [facility] Physician GroupComment on above:Performed By: #### [id number], CMP, TSH3, LIPID, CBC, T4F, ESR #### [place] [address] USAHemoglobin (Bld) [Mass/Vol]12.9 g/fFOhhycd21.8-15.4The [facility] Physician GroupComment on above:Performed By: #### [id number], CMP, TSH3, LIPID, CBC, T4F, ESR #### [place] [address] USALymphocytes (Bld) [#/Vol]2.2 10*3/uLNormal1.00-4.8The [facility] Physician GroupComment on above:Performed By: #### [id number], CMP, TSH3, LIPID, CBC, T4F, ESR #### [place] [address] USALymphocytes/100 WBC (Bld)34.3 %Normal.The [facility] Physician GroupComment on above:Performed By: #### [id number], CMP, TSH3, LIPID, CBC, T4F, ESR #### [address] (RBC) [Entitic mass]33.5 iaKmnwma76.7-34.3The [facility] Physician GroupComment on above:Performed By: #### [id number], CMP, TSH3, LIPID, CBC, T4F, ESR #### [address] (RBC) [Entitic vol]98.4 pIYsqyce73-784Ahw Former[facility] Physician GroupComment on above:Performed By: #### [id number], CMP, TSH3, LIPID, CBC, T4F, ESR #### [place] [address] USAMean Corpuscular HGB Conc34.1 g/xITpxcey78.0-35.0The [facility] Physician GroupComment on above:Performed By: #### [id number], CMP, TSH3, LIPID, CBC, T4F, ESR #### [place] [address] USAMonocytes (Bld) [#/Vol]0.6 10*3/uLNormal0.0-0.8The [facility] Physician GroupComment on above:Performed By: #### [id number], CMP, TSH3, LIPID, CBC, T4F, ESR #### [place] [address] USAMonocytes/100 WBC (Bld)9.8 %Normal.The [facility] Physician GroupComment on above:Performed By: #### [id number], CMP, TSH3, LIPID, CBC, T4F, ESR #### [place] [address] USANeutrophils (Bld) [#/Vol]3.4 10*3/uLNormal1.8-7.7The [facility] Physician GroupComment on above:Performed By: #### [id number], CMP, TSH3, LIPID, CBC, T4F, ESR #### [place] [address] USANeutrophils/100 WBC (Bld)52.6 %Normal.The [facility] Physician GroupComment on above:Performed By: #### [id number], CMP, TSH3, LIPID, CBC, T4F, ESR #### [place] [address] USANRBC%0.3 /100{WBC}Normal0-0.5The [facility] Group Comment on above:Performed By: #### [id number], CMP, TSH3, LIPID, CBC, T4F, ESR #### [place] [address] USAPlatelet mean volume (Bld) [Entitic vol]9.3 fLNormal 6.3-10.7The [facility] Physician GroupComment on above:Performed By: #### [id number], CMP, TSH3, LIPID, CBC, T4F, ESR #### [place] [address] USAPlatelets (Bld) [#/Vol]208 10*3/rGCwyxia635-206Tlu [facility] Physician GroupComment on above:Performed By: #### [id number], CMP, TSH3, LIPID, CBC, T4F, ESR #### [place] [address] USARBC (Bld) [#/Vol]3.85 10*6/uLNormal3.60-5.00The [facility] Physician GroupComment on above:Performed By: #### [id number], CMP, TSH3, LIPID, CBC, T4F, ESR #### [place] [address] USAWBC (Bld) [#/Vol]6.6 10*3/uLNormal3.8-11.6The [facility] Physician GroupComment on above:Performed By: #### [id number], CMP, TSH3, LIPID, CBC, T4F, ESR #### [place] [address] USAComprehensive Metabolic Panelon 06-90-7055Lguubhx [Mass/Vol]3.7 g/dLNormal3.5-5.7The [facility] Physician GroupComment on above: Performed By: #### [id number], CMP, TSH3, LIPID, CBC, T4F, ESR #### [place] [address] USAAlbumin/Globulin [Mass ratio]1.9 {ratio}NormalThe [facility]ly [facility] Physician GroupComment on above:Performed By: #### [id number], CMP, TSH3, LIPID, CBC, T4F, ESR #### [place] [address] USAALP [Catalytic activity/Vol]62 U/WPzxazb84-253Bgb [facility] Physician GroupComment on above:Performed By: #### [id number], CMP, TSH3, LIPID, CBC, T4F, ESR #### [place] [address] USAALT [Catalytic activity/Vol]21 U/LNormal7-52The [facility] Physician GroupComment on above:Performed By: #### [id number], CMP, TSH3, LIPID, CBC, T4F, ESR #### [place] [address] USAAnion gap [Moles/Vol]8.2 mmol/LNormal6.0-15.0The [facility] Physician GroupComment on above:Performed By: #### [id number], CMP, TSH3, LIPID, CBC, T4F, ESR #### [address] [address] USAAST [Catalytic activity/Vol]19 U/IOcuhxw80-81Vgw [facility] Physician GroupComment on above:Performed By: #### [id number], CMP, TSH3, LIPID, CBC, T4F, ESR #### [facility] [address] [place] [address] USABilirubin [Mass/Vol]0.7 mg/dLNormal0.3-1.0The Former[facility] Physician GroupComment on above:Performed By: #### [id number], CMP, TSH3, LIPID, CBC, T4F, ESR #### [facility] [address] [place] [address] USACalcium [Mass/Vol]9.7 mg/dLNormal8.6-10.3The [facility] Physician GroupComment on above:Performed By: #### [id number], CMP, TSH3, LIPID, CBC, T4F, ESR #### [facility] [address] [place] [address] USAChloride [Moles/Vol]107 mmol/XXrjjmr59-671Xwj Former[facility] Physician GroupComment on above:Performed By: #### [id number], CMP, TSH3, LIPID, CBC, T4F, ESR #### [place] [address] USACO2 [Moles/Vol]31.5 mmol/LHigh21.0-31.0The [facility] Physician GroupComment on above:Performed By: #### [id number], CMP, TSH3, LIPID, CBC, T4F, ESR #### [facility] [address] [place] [address] USACreatinine [Mass/Vol]0.67 mg/dLNormal0.60-1.20The Former[facility] Physician GroupComment on above:Performed By: #### [id number], CMP, TSH3, LIPID, CBC, T4F, ESR #### [place] [address] USAGFR/1.73 sq M.predicted MDRD (S/P/Bld) [Vol rate/Area] mL/min/{1.73_m2}NormalThe Formerly [facility] Physician GroupComment on above:Performed By: #### [id number], CMP, TSH3, LIPID, CBC, T4F, ESR #### [facility] [address] [place] [address] USAGlobulin (S) [Mass/Vol]1.9 g/dLNormalThSt. Luke's Fruitland Physician GroupComment on above:Performed By: #### [id number], CMP, TSH3, LIPID, CBC, T4F, ESR #### [facility] [address] [place] [address] USAGlucose [Mass/Vol]89 mg/vOJvmulv10-670Hrg Former[facility] Physician GroupComment on above:Result Comment: Random Glucose Reference Range is dependent on time and content of last meal. Glucose of more than 200 mg/dL in a nonstressed, ambulatory subject supports the diagnosis of Diabetes Mellitus. ADA recommended reference rangePerformed By: #### [id number], CMP, TSH3, LIPID, CBC, T4F, ESR #### [place] [address] USAPotassium [Moles/Vol]3.7 mmol/LNormal3.5-5.1The Former[facility] Physician GroupComment on above:Performed By: #### [id number], CMP, TSH3, LIPID, CBC, T4F, ESR #### [place] [address] USAProtein [Mass/Vol]5.6 g/dLLow6.4-8.9The Former[facility] Physician GroupComment on above:Performed By: #### [id number], CMP, TSH3, LIPID, CBC, T4F, ESR #### [place] [address] USASodium [Moles/Vol]143 mmol/YUvzdqx837-158Sok [facility] Physician GroupComment on above:Performed By: #### [id number], CMP, TSH3, LIPID, CBC, T4F, ESR #### [place] [address] USAUrea nitrogen [Mass/Vol]19 mg/dLNormal7-25The [facility] Physician GroupComment on above:Performed By: #### [id number], CMP, TSH3, LIPID, CBC, T4F, ESR #### [place] [address] USAErythrocyte Sedimentation Rateon 55-17-3439DTG (Bld) [Velocity]9 mm/hNormal0-29The Former[facility] Physician GroupComment on above:Result Comment: PERFORMED BY: [place] [address] PATHOLOGIST AUTO WHEEL ALIGNMENT SPECIALIST JASIEL HURTADO M.D.Performed By: #### [id number], CMP, TSH3, LIPID, CBC, T4F, ESR #### [place] [address] USAFree T4 (Free Thyroxine)on 59-47-9525Dnnx T4 [Mass/Vol] 0.74 ng/dLNormal0.61-1.12The Former[facility] Physician GroupComment on above:Performed By: #### LIPID, TSH3, CMP, CBC #### [place] [id number] USALipid Panelon 24-49-6048Mlrclxsrvml [Mass/Vol]228 mg/dL Pjqq531-908Ojh Former[facility] Physician GroupComment on above:Result Comment: Chol less than 200 mg/dl low risk Chol 201-239 mg/dl borderline risk Chol 240 mg/dl and greater high riskPerformed By: #### [id number], CMP, TSH3, LIPID, CBC, T4F, ESR #### [place] [address] USACholesterol in HDL [Mass/Vol]96 mg/iRMlwf52-85Cpv Former[facility] Physician GroupComment on above:Result Comment: HDL CHOL ATP-III CLASSIFICATION Cardiovascular Risk HDL > or equal to 60 mg/dL LOW HDL < 40 mg/dL HIGHPerformed By: #### [id number], CMP, TSH3, LIPID, CBC, T4F, ESR #### [place] [address] USACholesterol.total/Cholesterol in HDL [Mass ratio]2.4 {ratio}Normal<5.0The Former[facility] Physician GroupComment on above:Performed By: #### [id number], CMP, TSH3, LIPID, CBC, T4F, ESR #### [facility] [address] [place] [address] USALDL Cholesterol,Cioxdbsesj374 mg/dLHigh0-100The Formerly [facility] Physician GroupComment on above:Result Comment: LDL ATP III CLASSIFICATION LDL less than 100 mg/dL Optimal LDL 100-129 mg/dL Near or above optimal LDL 130-159 mg/dL Borderline high LDL 160-189 mg/dL High LDL greater than 189 mg/dL Very highPerformed By: #### [id number], CMP, TSH3, LIPID, CBC, T4F, ESR #### [facility] [address] [place] [address] USATriglyceride w/Yrmmoc58 mg/dLNormal0-149The Formerly [facility] Physician GroupComment on above:Result Comment: TRIG ATP III CLASSIFICATION TRIG less than 150 mg/dL Normal TRIG 150-199 mg/dL Borderline high TRIG 200-500 mg/dL High TRIG greater than 500 mg/dL Very high Standard traceable to the Center for Disease Conrtrol and Prevention (CDC) test method.Performed By: #### [id number], CMP, TSH3, LIPID, CBC, T4F, ESR #### [facility] [address] [place] [id number] USAVLDL RVILNGMGCBY70 mg/dLNormalThe Former[facility] Physician GroupComment on above:Performed By: #### [id number], CMP, TSH3, LIPID, CBC, T4F, ESR #### [facility] [address] [place] [address] USAThyroid Stimulating Hormoneon 41-55-5190NAK Qn6.38 m[IU]/L High0.45-5.33The Formerly [facility] Physician GroupComment on above:Performed By: #### LIPID, TSH3, CMP, CBC #### [facility] [address] [place] [id number] USAVitamin D 25 Hydroxy Totalon 74-92-3305Blblznh D 25 Hydroxy Total28.4 ng/aCEas63-773Btu Formerly [facility] Physician GroupComment on above: Result Comment: VITAMIN D STATUS 25(OH)VITAMIN D RANGE (ng/mL) Deficient <20 Insufficient 20 to <30 Sufficient 30 to 100 Reference: Yolanda MF,Nathan NC, Keshawn FRANCO, et al. Evaluation,treatment, and prevention of vitamin D deficiency; an Endocrine Society clinical practice guideline. JCEM. 2010; 96(7):1911-30. PERFORMED BY: [place] [address] PATHOLOGIST AUTO WHEEL ALIGNMENT SPECIALIST JASIEL HURTADO M.D.Performed By: #### LIPID, TSH3, CMP, CBC #### [place] [id number] USAXR scapula LT*on 65-85-5049QP scapula LT*[facility] [place] [address] [place], [place] [address] XRay Report Signed Patient: Lavonne Villatoro MR#: [id number] : 1935 Acct:[id number] Age/Sex: 88 / F ADM Date: 05/25/24 Loc: XD Room: Type: [facility] Attending Dr: Suhas Garrett DO Copies to: Suhas Garrett DO Ordering Provider: Suhas Garrett DO Date of Service: 05/25/24 XR/XR shoulder LT min 2V*: M25.519 - Pain in unspecified shoulder ([id number]) XR/XR scapula LT*: M25.519 - Pain in [...] M.D.05/25/2024 4:45 PM Dictation Location: [place] [address] Transcribed By: [facility] 05/25/241644 Dictated By: Casandra Gómez MD 05/25/241641 Signed By: 05/25/241644[facility] Physician GroupTRANSTHORACIC ECHO (TTE) COMPLETEon 36-48-8351DSEIOYYVKZCPH ECHO (TTE) [address], [address] [place] [address] TRANSTHORACIC ECHOCARDIOGRAM REPORT Patient Name: LAVONNE VILLATORO Reading Physician: [id number] Wolf MD, [facility] Study Date: 02/11/2024 Ordering Provider: [id number] MICHEL WOLF MRN/PID: [id number] Fellow: Nurse: Date of /Age: 3 1935 / 88 years [employer] Application Developer: LILIA Gender: F Additional Staff: Height: 157.48 cm Admit Date: Weight: 69.40 kg Admission Status: BSA / BMI: 1.71 m2 / 27.98 kg/m2 Department Location: [facility] Blood Pressure: 116 /76 mmHg Study Type: TRANSTHORACIC ECHO (TTE) COMPLETE Diagnosis/ICD: Nonrheumatic aortic (valve) stenosis-I35.0 Indication: HTN, Hyperlipidemia, 3/6 Systolic Murmur, Hypothryoid, Overweight CPT Codes: Echo Complete w Full Doppler-64592 Study Detail: The following Echo studies were [...] mmHg PIEDV: 2.23 m/s PADP: 22.9 mmHg [id number] Michel Wolf MD, [facility] Electronical (more content not included)...[facility] BIon 36-19-0143OG carotid doppler [facility] [place] [address] [place] [address] Ultrasound Report Signed Patient: Lavonne Villatoro MR#: [id number] : 1935 Acct:[id number] Age/Sex: 88 / F ADM Date: 10/14/23 Loc: Room: Type: [facility] CL Attending Dr: Suhas Garrett [...] Hola Wynn M.D.10/15/2023 11:47 AM Dictation Location: [place] [address] Tech: Jackie Aguillon Transcribed By: KIRILL 10/15/23 1147 Dictated By: Hola Wynn MD 10/15/23 1145 Signed By: 10/15/23 1147Norm[facility] CenterComplete Blood Count Auto Diffon 74-58-6523Uinskgekm (Bld) [#/Vol]0.0 10*3/uLNormal0.0-0.2The [facility] Physician [facility] Medical CenterComment on above:Result Comment: PERFORMED BY: [place] [address] PATHOLOGIST AUTO WHEEL ALIGNMENT SPECIALIST JODY SOLANO M.D.Performed By: #### LIPID, TSH3, CMP, CBC #### [place] [address] USABasophils/100 WBC (Bld)0.7 %Normal.The Former[facility] Physician GroupComment on above:Performed By: #### LIPID, TSH3, CMP, CBC #### [place] [address] USAEosinophils (Bld) [#/Vol]0.1 10*3/uLNormal0.0-0.45The [facility] Physician GroupComment on above:Performed By: #### LIPID, TSH3, CMP, CBC #### [place] [address] USAEosinophils/100 WBC (Bld)1.6 %Normal.The [facility] Physician GroupComment on above:Performed By: #### LIPID, TSH3, CMP, CBC #### [place] [address] USAErythrocyte distribution width (RBC) [Ratio]14.8 %Normal 11.9-15.3The Former[facility] Physician GroupComment on above:Performed By: #### LIPID, TSH3, CMP, CBC #### [place] [address] USAHematocrit (Bld) [Volume fraction]39.9 %Xumlch76.0-46.4The Former[facility] Physician GroupComment on above:Performed By: #### LIPID, TSH3, CMP, CBC #### [place] [address] USAHemoglobin (Bld) [Mass/Vol]13.2 g/nVAsacrm87.8-15.4The Former[facility] Physician GroupComment on above:Performed By: #### LIPID, TSH3, CMP, CBC #### [place] [address] USALymphocytes (Bld) [#/Vol]2.6 10*3/uLNormal1.00-4.8The Former[facility] Physician GroupComment on above:Performed By: #### LIPID, TSH3, CMP, CBC #### [place] [address] USALymphocytes/100 WBC (Bld)43.5 %Normal.The Former[facility] Physician GroupComment on above:Performed By: #### LIPID, TSH3, CMP, CBC #### [address] (RBC) [Entitic mass]33.2 epBxngtv22.7-34.3The Former[facility] Physician GroupComment on above:Performed By: #### LIPID, TSH3, CMP, CBC #### [address] (RBC) [Entitic vol]100.5 bDPssq96-373Pgy Former[facility] Physician GroupComment on above:Performed By: #### LIPID, TSH3, CMP, CBC #### [place] [address] USAMean Corpuscular HGB Conc33.0 g/gDNxzhlw96.0-35.0The Former[facility] Physician GroupComment on above:Performed By: #### LIPID, TSH3, CMP, CBC #### [place] [address] USAMonocytes (Bld) [#/Vol]0.6 10*3/uLNormal0.0-0.8The Former[facility] Physician GroupComment on above:Performed By: #### LIPID, TSH3, CMP, CBC #### [facility] [address] [place] [address] USAMonocytes/100 WBC (Bld)9.7 %Normal.The Former[facility] Physician GroupComment on above:Performed By: #### LIPID, TSH3, CMP, CBC #### [facility] [address] [place] [address] USANeutrophils (Bld) [#/Vol]2.7 10*3/uLNormal1.8-7.7The Former[facility] Physician GroupComment on above:Performed By: #### LIPID, TSH3, CMP, CBC #### [place] [address] USANeutrophils/100 WBC (Bld)44.5 %Normal.The [facility] Physician GroupComment on above:Performed By: #### LIPID, TSH3, CMP, CBC #### [facility] [address] [place] [address] USANRBC%0.2 /100{WBC}Normal0-0.5The [facility] Comment on above:Performed By: #### LIPID, TSH3, CMP, CBC #### [facility] [address] [place] [address] USAPlatelet mean volume (Bld) [Entitic vol]9.2 fLNormal 6.3-10.7The [facility] Physician GroupComment on above:Performed By: #### LIPID, TSH3, CMP, CBC #### [facility] [address] [place] [address] USAPlatelets (Bld) [#/Vol]229 10*3/fPXqczby158-832Ohx [facility] Physician GroupComment on above:Performed By: #### LIPID, TSH3, CMP, CBC #### [facility] [address] [place] [address] USARBC (Bld) [#/Vol]3.98 10*6/uLNormal3.60-5.00The [facility] Physician GroupComment on above:Performed By: #### LIPID, TSH3, CMP, CBC #### [place] [address] USAWBC (Bld) [#/Vol]6.0 10*3/uLNormal3.8-11.6The [facility] Physician GroupComment on above:Performed By: #### LIPID, TSH3, CMP, CBC #### [place] [address] USAComprehensive Metabolic Panelon 48-81-2647Blnxjsn [Mass/Vol]3.8 g/dLNormal3.5-5.7The Former[facility] Physician GroupComment on above: Performed By: #### LIPID, TSH3, CMP, CBC #### [place] [address] USAAlbumin/Globulin [Mass ratio]1.7 {ratio}NormalThe [facility] Physician GroupComment on above:Performed By: #### LIPID, TSH3, CMP, CBC #### [place] [address] USAALP [Catalytic activity/Vol]72 U/NOnhkjk54-039Gmw [facility] Physician GroupComment on above:Performed By: #### LIPID, TSH3, CMP, CBC #### [place] [address] USAALT [Catalytic activity/Vol]43 U/LNormal7-52The [facility] Physician GroupComment on above:Performed By: #### LIPID, TSH3, CMP, CBC #### [place] [address] USAAnion gap [Moles/Vol]8.9 mmol/LNormal6.0-15.0The [facility] Physician GroupComment on above:Performed By: #### LIPID, TSH3, CMP, CBC #### [place] [address] USAAST [Catalytic activity/Vol]23 U/TCzjovj11-54Fxj [facility] Physician GroupComment on above:Performed By: #### LIPID, TSH3, CMP, CBC #### [place] [address] USABilirubin [Mass/Vol]1.2 mg/dLHigh0.3-1.0The [facility] Physician GroupComment on above:Performed By: #### LIPID, TSH3, CMP, CBC #### [place] [address] USACalcium [Mass/Vol]9.5 mg/dLNormal8.6-10.3The [facility] Physician GroupComment on above:Performed By: #### LIPID, TSH3, CMP, CBC #### [place] [address] USAChloride [Moles/Vol]107 mmol/CBjbwug11-888Bfe [facility] Physician GroupComment on above:Performed By: #### LIPID, TSH3, CMP, CBC #### [place] [address] USACO2 [Moles/Vol]30.0 mmol/DZdxztw34.0-31.0The [facility] Physician GroupComment on above:Performed By: #### LIPID, TSH3, CMP, CBC #### [place] [address] USACreatinine [Mass/Vol]0.76 mg/dLNormal0.60-1.20The [facility] Physician GroupComment on above:Performed By: #### LIPID, TSH3, CMP, CBC #### [place] [address] USAGFR/1.73 sq M.predicted MDRD (S/P/Bld) [Vol rate/Area] mL/min/{1.73_m2}NormalThe Former[facility] Physician GroupComment on above:Performed By: #### LIPID, TSH3, CMP, CBC #### [place] [address] USAGlobulin (S) [Mass/Vol]2.2 g/dLNormalThe [facility] Physician GroupComment on above:Performed By: #### LIPID, TSH3, CMP, CBC #### [address] [place] [address] USAGlucose [Mass/Vol]79 mg/qGSyubdh36-527Lzx [facility] Physician GroupComment on above:Result Comment: Random Glucose Reference Range is dependent on time and content of last meal. Glucose of more than 200 mg/dL in a nonstressed, ambulatory subject supports the diagnosis of Diabetes Mellitus. ADA recommended reference rangePerformed By: #### LIPID, TSH3, CMP, CBC #### [place] [address] USAPotassium [Moles/Vol]3.9 mmol/LNormal3.5-5.1The Former[facility] Physician GroupComment on above:Performed By: #### LIPID, TSH3, CMP, CBC #### [place] [address] USAProtein [Mass/Vol]6.0 g/dLLow6.4-8.9The [facility] Physician GroupComment on above:Performed By: #### LIPID, TSH3, CMP, CBC #### [place] [address] USASodium [Moles/Vol]142 mmol/XXzkrgt870-080Upz [facility] Physician GroupComment on above:Performed By: #### LIPID, TSH3, CMP, CBC #### [place] [address] USAUrea nitrogen [Mass/Vol]22 mg/dLNormal7-25The [facility] Physician GroupComment on above:Performed By: #### LIPID, TSH3, CMP, CBC #### [place] [address] USALipid Panelon 39-18-5488Imjzmsonbyq [Mass/Vol]243 mg/dL Itmb602-049Cgr [facility] Physician GroupComment on above:Result Comment: Chol less than 200 mg/dl low risk Chol 201-239 mg/dl borderline risk Chol 240 mg/dl and greater high riskPerformed By: #### LIPID, TSH3, CMP, CBC #### [place] [address] USACholesterol in HDL [Mass/Vol]98 mg/jXFeza36-51Mzj [facility] Physician GroupComment on above:Result Comment: HDL CHOL ATP-III CLASSIFICATION Cardiovascular Risk HDL > or equal to 60 mg/dL LOW HDL < 40 mg/dL HIGHPerformed By: #### LIPID, TSH3, CMP, CBC #### [facility] [address] [place] [id number] USACholesterol.total/Cholesterol in HDL [Mass ratio]2.5 {ratio}Normal<5.0The [facility] Physician GroupComment on above:Performed By: #### LIPID, TSH3, CMP, CBC #### [facility] [address] [place] [address] USALDL Cholesterol,Khgxemlfau417 mg/dLHigh0-100The [facility] Physician GroupComment on above:Result Comment: LDL ATP III CLASSIFICATION LDL less than 100 mg/dL Optimal LDL 100-129 mg/dL Near or above optimal LDL 130-159 mg/dL Borderline high LDL 160-189 mg/dL High LDL greater than 189 mg/dL Very highPerformed By: #### LIPID, TSH3, CMP, CBC #### [facility] [address] [place] [id number] USATriglyceride w/Hbcxtq271 mg/dLNormal0-149The [facility] Physician GroupComment on above:Result Comment: TRIG ATP III CLASSIFICATION TRIG less than 150 mg/dL Normal TRIG 150-199 mg/dL Borderline high TRIG 200-500 mg/dL High TRIG greater than 500 mg/dL Very high Standard traceable to the Center for Disease Conrtrol and Prevention (CDC) test method.Performed By: #### LIPID, TSH3, CMP, CBC #### [facility] [address] [place] [id number] USAVLDL QDYSATDPZBX86 mg/dLNormalThe [facility] Physician GroupComment on above:Performed By: #### LIPID, TSH3, CMP, CBC #### [facility] [address] [place] [address] USAThyroid Stimulating Hormoneon 08-18-3535KOO Qn4.01 m[IU]/L Normal0.45-5.33The [facility] Physician GroupComment on above:Result Comment: PERFORMED BY: [place] [address] PATHOLOGIST AUTO WHEEL ALIGNMENT SPECIALIST JODY SOLANO M.D.Performed By: #### LIPID, TSH3, CMP, CBC #### [facility] [address] [place] [id number] USAComplete Blood Count Auto Diffon 78-72-2141Drcffhwil (Bld) [#/Vol]0.975823847 10*3/uLNormal0.0-0.2 10*3/[employer] ([employer]) Other Basophils/100 WBC (Bld)0.900 %. %[employer] Other Eosinophils (Bld) [#/Vol]0.626565063 10*3/uLNormal0.0- 0.45 10*3/[employer] ([employer]) Other Eosinophils/100 WBC (Bld)1.100 %. %[employer] Other Erythrocyte distribution width (RBC) [Ratio]14.000 % Cdwivb23.9-15.3 %[employer] Other Hematocrit (Bld) [Volume fraction]37.700 %Prqhyh39.0- 46.4 %[employer] Other Hemoglobin (Bld) [Mass/Vol]12.820293 g/yBQtvdul77.8- 15.4 g/dLNoClub Point Tigerlily Other Lymphocytes (Bld) [#/Vol]2.857309244 10*3/uLNormal 1.00-4.8 10*3/[employer] ([employer]) Other Lymphocytes/100 WBC (Bld)35.100 %. %[employer] Other MCH (RBC) [Entitic mass]33.3000 sfImjvnc99.7-34.3 pg [employer] Other MCV (RBC) [Entitic vol]99.7000 lCIljozp25-814 [facility] RiversideClub Point Tigerlily Other Monocytes (Bld) [#/Vol]0.424433225 10*3/uLNormal0.0- 0.8 10*3/[employer] ([employer]) Other Monocytes/100 WBC (Bld)10.000 %. %[employer] Other Neutrophils (Bld) [#/Vol]3.069936913 10*3/uLNormal1.8- 7.7 10*3/[employer] ([employer]) Other Neutrophils/100 WBC (Bld)52.900 %. %[employer] Other Platelet mean volume (Bld) [Entitic vol]9.9000 fL Normal6.3-10.7 [facility] RiversideMeilimei Other Platelets (Bld) [#/Vol]224 10*3/hFMdzbrb551-933 10*3/[employer] ([employer]) Other RBC (Bld) [#/Vol]3.78 10*6/uLNormal3.60-5.00[facility] HospitalSmartCup Other WBC (Bld) [#/Vol]7.236728614 10*3/uLNormal3.8-11.6 10*3/[employer] ([employer]) Other Complete Blood Count Auto Diff7.1 10*3/uLNormal3.8- 11.6 10*3/[employer] ([employer]) Other Complete Blood Count Auto Diff33.4 g/xUZsajiq30.0-35.0 g/dLMeilimei Other Complete Blood Count Auto Diff0.1 /100{WBC}Normal0-0.5 /100{WBC}[employer] Other Comprehensive Metabolic Panelon 13-17-4053Rccizls [Mass/Vol]3.266428 g/dLNormal3.5-5.7 g/dLNoellis fischel cancer center Tigerlily Other Albumin/Globulin [Mass ratio]1.7 {ratio}[employer] Other ALP [Catalytic activity/Vol]140 U/LDkqw65-969 U/iWOPI Other ALT [Catalytic activity/Vol]71 U/LHigh7-52 U/iWOPI Other AST [Catalytic activity/Vol]20 U/ALwrsbx20-33 U/iWOPI Other Bilirubin [Mass/Vol]0.6615998 mg/dLNormal0.3-1.0 mg/dL [employer] Other Calcium [Mass/Vol]9.0381078 mg/dLNormal8.6-10.3 mg/dL [employer] Other Chloride [Moles/Vol]107 mmol/NLystup70-322 mmol/iWOPI Other CO2 [Moles/Vol]30.63944903 mmol/UBzykho69.0-31.0 mmol/iWOPI Other Creatinine [Mass/Vol]0.51193477 mg/dLNormal0.60-1.20 mg/dLNoMeilimei Other GFR/1.73 sq M.predicted MDRD (S/P/Bld) [Vol rate/Area] mL/min/{1.73_m2}[employer] Other Glucose [Mass/Vol]89 mg/oGOqgipm57-648 mg/dLMeilimei Other Potassium [Moles/Vol]3.56089786 mmol/LNormal3.5-5.1 mmol/LNmissouri baptist medical center Tigerlily Other Protein [Mass/Vol]6.620848 g/dLLow6.4-8.9 g/dLNoMeilimei Other Sodium [Moles/Vol]143 mmol/COrlagh395-312 mmol/LNgriddig Other Urea nitrogen [Mass/Vol]21 mg/dLNormal7-25 mg/dLNoSmartCup Other Comprehensive Metabolic Panel2.2 g/dLClub Point Tigerlily Other Free T4 (Free Thyroxine)on 97-99-3631Tlyl T4 [Mass/Vol]1.50769518 ng/dLHigh0.61-1.12 ng/dLNoellis fischel cancer center Tigerlily Other Thyroid Antibodies TPO+Tg Abon 10-52-2434Fnrsgbw Antibodies TPO+Tg Ci999-90Kfbzq Tigerlily Other Thyroid Antibodies TPO+Tg Ab<1.00.0-0.9[facility] Other Thyroid Stimulating Hormoneon 90-11-2277SKQ Qn 2.72628300937 m[IU]/LNormal0.45-5.33 u[iU]/mLNgriddig Other Echocardiogramon 13-58-5573ZrpfweolnwmeotsiJwarq[address], [address] [place] [address] TRANSTHORACIC ECHOCARDIOGRAM REPORT Patient Name: LAVONNE Bahena Physician: [id number] Michel Wolf MD [facility] Study Date: 02/26/2023 Referring MICHEL WOLF Physician: MRN/PID: [id number] PCP: Suhas Garrett MD Accession/Order#: [id number] [facility] Location: Date of : 1935 Fellow: Gender: F Nurse: Admit Date: Cobol Application Developer: Sheridan Lemus RDCS, RVT Height: 157.48 cm CC Report to: Weight: 67.13 kg Study Type: Echocardiogram BSA: 1.68 m2 Blood Pressure: 122 /76 mmHg Diagnosis/ICD: I35.0-Nonrheumatic aortic (valve) stenosis; R01.1-Cardiac murmur, unspecified Indication: HTN, Hyperlipidemia, Overweight, Hypothyroid, Polymyalgia Rheumatica Procedure/CPT: Echo Complete w Full Doppler-[id number] Study Detail: The following Echo studies were [...] velocity across the aortic valve has increased lctr424 cm/s up to 374 cm/s and aortic [...] mmHg PIEDV: 2.50 m/s PADP: 28.0 mmHg [id number] Michel Wolf MD, FACC Electronically signed on 03/01/2023 at 2:16:46 PM Final [facility] SystemOffice Visit (Cardiology)on 50-07-8161Ufnttw-up visitDiagnoses/Problems Assessed Aortic stenosis (424.1) (I35.0) Murmur, cardiac (785.2) (R01.1) Essential hypertension (401.9) (I10) Hyperlipidemia (272.4) (E78.5) Overweight with body mass index (BMI) of 27 to 27.9 in adult (278.02,V85.23) (E66.3,Z68.27) Never smoker Hypothyroidism (244.9) (E03.9) PMR (polymyalgia rheumatica) (725) (M35.3) Orders Aortic stenosis, Murmur, cardiac Echocardiogram; Status:Hold For - Scheduling,Retrospective Authorization; Requested for:[id number]; Essential hypertension, Hyperlipidemia Changed: From Aspirin EC 81 MG TBEC TAKE 1 TABLET To Aspirin 81 MG Oral Tablet Delayed Release TAKE 1 TABLET DAILY Overweight with body mass index (BMI) of 27 to 27.9 in adult Healthy Weight Tips; Status:Complete - Retrospective Authorization; Done: [id number] Some eating tips that can help you lose weight.; Status:Complete - Retrospective Authorization; Done: 64Jxw1200 SocHx: Never smoker Tobacco Use Screening; Status:Complete; Done: 32Hsj3549 Patient Instructions Please bring all medicines, vitamins, [...] Multi Vitamin Oral TabletTAKE 1 TABLET DAILY. [place]-3 Fish Oil 1000 MG Oral CapsuleTAKE 1 [...] negative for complaint. Vitals Vital Signs Recorded: 94Jpe2307 11:32AM Heart Rate68, R Radial Tjgbhvxq228, RUE, Sitting Fslvvvxal99, RUE, Sitting Height5 ft 2 in Nsgzdy307 lb BMI Hyrxsionsu37.07 kg/m2 BSA Calculated1.68 Tobacco Useb) No PHQ-2 [...] included)...NormalUH TouchworksTobacco Screening.on 12-24-2022 [facility]Prov[facility] [address] DO Work Phone: Fall risk assessmenta) No falls within the last year [facility] 250 DO Work Phone: Tobacco use status CPHSb) NoMP[facility] 250 DO Work Phone: Complete Blood Count Auto Diffon 31-89-7639Onooflypn (Bld) [#/Vol]0.648035188 10*3/uLNormal0.0-0.2 10*3/[employer] ([employer]) Other Basophils/100 WBC (Bld)0.700 %. %[employer] Other Eosinophils (Bld) [#/Vol]0.849045077 10*3/uLNormal0.0- 0.45 10*3/[employer] ([employer]) Other Eosinophils/100 WBC (Bld)0.700 %. %[employer] Other Erythrocyte distribution width (RBC) [Ratio]13.500 % Masaxx46.9-15.3 %[employer] Other Hematocrit (Bld) [Volume fraction]38.400 %Iqkprn87.0- 46.4 %[employer] Other Hemoglobin (Bld) [Mass/Vol]12.650731 g/aSYurcgl60.8- 15.4 g/dLNoMeilimei Other Lymphocytes (Bld) [#/Vol]0.662402243 10*3/uLLow1.00- 4.8 10*3/[employer] ([employer]) Other Lymphocytes/100 WBC (Bld)12.600 %. %[employer] Other MCH (RBC) [Entitic mass]33.7000 xaAonbyi98.7-34.3 pg [employer] Other MCV (RBC) [Entitic vol]100.4000 aVKksb41-671 AKTapCanvas Other Monocytes (Bld) [#/Vol]0.544914042 10*3/uLNormal0.0- 0.8 10*3/[employer] ([employer]) Other Monocytes/100 WBC (Bld)6.800 %. %[employer] Other Neutrophils (Bld) [#/Vol]5.006439305 10*3/uLNormal1.8- 7.7 10*3/[employer] ([employer]) Other Neutrophils/100 WBC (Bld)79.200 %. %[employer] Other Platelet mean volume (Bld) [Entitic vol]9.4000 fL Normal6.3-10.7 [facility] RiversideMeilimei Other Platelets (Bld) [#/Vol]223 10*3/dQVsopur104-991 10*3/[employer] ([employer]) Other RBC (Bld) [#/Vol]3.7692073179 10*6/uLNormal3.60-5.00 10*6/[employer] ([employer]) Other WBC (Bld) [#/Vol]6.633872458 10*3/uLNormal3.8-11.6 10*3/[employer] ([employer]) Other Complete Blood Count Auto Diff6.6 10*3/uLNormal4.5- 11.0 10*3/[employer] ([employer]) Other Complete Blood Count Auto Diff33.6 g/aQUwscly98.0-35.0 g/dLTapCanvas Other Complete Blood Count Auto Diff0.1 %Normal0-0.5 %[facility] [employer] Other Erythrocyte Sedimentation Rateon 45-11-8795MZG (Bld) [Velocity]28 mm/hNormal0-29[facility] Other VASC LAB Carotid Artery Duplex Ultrasoundon 02-21-2022 US.doppler Carotid arteriesArbor Health Oncodesign [address] [place] Work Phone: COVID Quick Testingon 66-08-1861NqcpyzYxhgcodjBbsqh Tigerlily Other Falls Screening (Age 18+)on 93-19-8997Iolh risk assessmenta) No falls within the last yearArbor Health Oncodesign 250 DO Work Phone: Office Visit (Cardiology)on 50-75-7073Ncyzvu-up visit Diagnoses/Problems Assessed Essential hypertension (401.9) (I10) [...] Multi Vitamin Oral TabletTAKE 1 TABLET DAILY. [place] 3 500 CAPSTAKE 1 CAPSULE Daily predniSONE 5 MG Oral Cmrccv0NT 7.5MG BY MOUTH ONE DAILY ALTERNATING EVERY OTHER DAY Allergies Medication amoxicillin Hives;; Recorded By: Kayla Orr; 10/17/2021 10:50:34 AM Dilantin CAPS Rash; Recorded By: Kayla Orr; 10/17/2021 10:50:34 AM Fosamax eye pain; Recorded By: Kayla Orr; 10/17/2021 10:50:34 AM Depakote ER TB24 Recorded By: Kayla Orr; 10/17/2021 10:50:34 AM Vitals Vital Signs Recorded: 05Yhs4548 11:04AMRecorded: 60Box5989 11:00AM Heart Rate56, R Uggeel37, R Radial Gpfvgknc975, LUE, Whwrwjf667, RUE Jmeaijtec08, LUE, Jrbnjhz11, RUE Height5 ft 2 in5 ft 2 in Zbehcu515 lb 143 lb BMI Eeewkmrtgj16.16 kg/m226.16 kg/m2 BSA Calculated1.661.66 Falls Screening (Age 18+)a) No falls within the last year Signatures Electronically signed by : Michel Wolf MD; Dec 26 2021 4:02PM EST (Author) [facility] TouchworksTobacco Screening.on 50-98-2225Apcjd depression screening assessmentUT Health East [facility] Work Phone: Fall risk assessmenta) No falls within the last year [facility] Work Phone: Tobacco use status CPHSb) [facility] Work Phone: Vital Signs Date TimeVital SignValuePerforming PpzndmbouUacyssyi04-13-5504 11:07-0400Body jekncw051.5 cmMichel Wolf MD Work Phone: [facility]08-08-2025 11:07-0400 Body mass index (BMI) [Ratio]27.44 kg/g7CgqboaMichel Wolf MD Work Phone: [facility]08-08-2025 11:07-0400 Body uvmnfb61.04 kgMichel Wolf MD Work Phone: [facility]08-08-2025 11:07-0400 Diastolic blood mm[Hg]Michel Wolf MD Work Phone: 1(224)831-[address] [place], [place] 1970108-08-2025 11:07-0400 Heart rate60 /minMichel Wolf MD Work Phone: [address] [place], [place] 4533208-08-2025 11:07-0400 Systolic blood htlugzpu581 mm[Hg]Michel Wolf MD Work Phone: [address] [place], [place] 4533207-15-2025 12:30-0400 Body dvdlvu240.[address]07-15-2025 12:30-0400 Body mass index (BMI) [Ratio]26.52 kg/m[address] 12-21-2024 12:30-0400Body bcpcjo17.[address] 12-21-2024 12:30-0400Diastolic blood ugdrcrvw96 mm[Hg][address]07-15-2025 12:30-0400Systolic blood wymhayzb070 mm[Hg][address]07-02-2025 13:56-0400Diastolic blood mtebanys39 mm[Hg]Reuben Burns RETURNED GOODS REPAIRER-HEAVY MACHINERY ASSEMBLER Work Phone: [facility]07-02-2025 13:56-0400 Systolic blood nuijjkjf544 mm[Hg]Reuben Burns RETURNED GOODS REPAIRER-HEAVY MACHINERY ASSEMBLER Work Phone: [phone] [place], [place] 1970107-01-2025 14:59-0400 Body pbeshb529.5 cmReuben Burns RETURNED GOODS REPAIRER-HEAVY MACHINERY ASSEMBLER Work Phone: 5(390)552-[address] [place], [place] 1970107-01-2025 14:59-0400 Body mass index (BMI) [Ratio]26.45 kg/o6ZqoyfReuben Burns RETURNED GOODS REPAIRER-HEAVY MACHINERY ASSEMBLER Work Phone: 2(698)340-[address] [place], [place] 1970107-01-2025 14:59-0400 Body .59 kgReuben Burns RETURNED GOODS REPAIRER-HEAVY MACHINERY ASSEMBLER Work Phone: [facility]07-01-2025 14:59-0400 Heart rate62 /Torreynamangerda Grant HOFFMAN-HEAVY MACHINERY ASSEMBLER Work Phone: [address] [place], [place] 4533211-08-2024 13:16-0500 Body lntlig146.5 cmMichel Wolf MD Work Phone: [address] [place], [place] 4533211-08-2024 13:16-0500 Body mass index (BMI) [Ratio]26.67 kg/p2DzlceoMichel Wolf MD Work Phone: [phone] [place], [place] 1970111-08-2024 13:16-0500 Body zgyjyq33.13 kgMichel Wolf MD Work Phone: [phone])[address] [place], [place] 1970111-08-2024 13:16-0500 Diastolic blood mm[Hg]Michel Wolf MD Work Phone: 1(505)[address] [place], [place] 1970111-08-2024 13:16-0500 Heart rate62 /minMichel Wolf MD Work Phone: 1(767)[address] [place], [place] 1970111-08-2024 13:16-0500 Systolic blood papzyfej599 mm[Hg]Michel Wolf MD Work Phone: 1(690)254-[address] [place], [place] 1970109-04-2024 12:28-0400 Body vnuksi867.[address] [place], [place] 9548609-04-2024 12:28-0400 Body mass index (BMI) [Ratio]27.98 kg/m2Ely [address] [place] [address] 02-11-2024 12:28-0400Body fogwvf38.[address] [place] [address] 02-11-2024 12:28-0400Diastolic blood yenqlnsl81 mm[Hg]Susie [address] [place], [place] 9548609-04-2024 12:28-0400Systolic blood mm[Hg][address]01-26-2024 11:15-0500Body mvbapk699.48 cmSuhas Garrett Other [employer] Other 01-26-2024 11:15-0500Body mass index (BMI) [Ratio] 28.53 kg/g1Vhbln Kunadan Other [employer] Other 01-26-2024 11:15-0500Body izrwqf12.76 kgSuhas Tami Other [employer] Other 01-26-2024 11:15-0500Diastolic blood zclzhoci43 mm[Hg] Suhas Garrett Other [employer] Other 01-26-2024 11:15-0500Respiratory rate20 /minCarterraquel Gaeladan Other [employer]ily Other 01-26-2024 11:15-3463KvT9% (BldA) [Mass fraction]99 % Suhas Gaeladan Other [employer] Other 01-26-2024 11:15-0500Systolic blood mm[Hg] Suhas Garrett Other [employer] Tiger[employer]ily Other 01-11-2024 11:09-0500Body yghtmi830.5 cmMichel Wolf MD Work Phone: [facility]01-11-2024 11:09-0500 Body mass index (BMI) [Ratio]27.98 kg/c6JeuleeMichel Wolf MD Work Phone: [facility]01-11-2024 11:09-0500 Body .4 kgMichel Wolf MD Work Phone: [facility]01-11-2024 11:09-0500 Diastolic blood mm[Hg]Michel Wolf MD Work Phone: [facility]01-11-2024 11:09-0500 Heart rate60 /minMichel Wolf MD Work Phone: [facility]01-11-2024 11:09-0500 Systolic blood dloiztga509 mm[Hg]Michel Wolf MD Work Phone: [facility]12-22-2023 11:00-0500 Body .48 cmSuhas Garrett Other [employer] Other 12-22-2023 11:00-0500Body mass index (BMI) [Ratio]27.8 kg/f7DioikSuhas Garrett Other [employer] Other 12-22-2023 11:00-0500Body xtuaoe01.95 kgSuhas Garrett Other [employer] Other 12-22-2023 11:00-0500Diastolic blood fbrykgac46 mm[Hg] Suhas Garrett Other [employer] Other 12-22-2023 11:00-0500Respiratory rate18 /minSuhas Garrett Other [employer] Other 12-22-2023 11:00-2229NlV0% (BldA) [Mass fraction]96 % Suhas Garrett Other [employer] Other 12-22-2023 11:00-0500Systolic blood fdirwson609 mm[Hg] Suhas Garrett Other [employer] Other 09-22-2023 10:30-0400Body osyzuk760.48 cmSuhas Garrett Other [employer] Other 09-22-2023 10:30-0400Body mass index (BMI) [Ratio] 27.98 kg/j9UceesSuhas Garrett Other [employer] Other 09-22-2023 10:30-0400Body radokg16.4 kgSuhas Garrett Other [employer] Other 09-22-2023 10:30-0400Diastolic blood mm[Hg] Suhas Garrett Other [employer] Other 09-22-2023 10:30-0400Respiratory rate16 /minSuhas Garrett Other [employer] Other 09-22-2023 10:30-3029IjN1% (BldA) [Mass fraction]91 % Suhas Garrett Other [facility] Other 09-22-2023 10:30-0400Systolic blood degkdrup392 mm[Hg] Suhas Garrett Other [facility] Other 07-18-2023 11:32-0400Body lstbwu965.48 cmSuhas Garrett Work Phone: [phone]-Gssfx [place] [employer] 250 DO Work Phone: 1([phone] 464-302007-18-2023 11:32-0400Body mass index (BMI) [Ratio] 27.07 kg/y4TafouSuhas Garrett Work Phone: [phone]-Tsuij [place] [employer] 250 DO Work Phone: 1(751) 275-746807-18-2023 11:32-0400Body surface area Derived from formula1.68 t9CahprSuhas Garrett Work Phone: mp200-1916FJ-Ybkxu [place] [facility]-[place] 250 DO Work Phone: 1(262) 501-171107-18-2023 11:32-0400Body .13 kgCarterraquel Garrett Work Phone: mp068-3610EE-Gpool [place] [facility]-[place] 250 DO Work Phone: 1(273) [phone] 11:32-0400Diastolic blood intseogh00 mm[Hg] Suhas Hoffman Tami Work Phone: [phone]-Kzywb [place] [facility]-[place]atyana 250 DO Work Phone: 1(632) 495-943707-18-2023 11:32-0400Heart rate68 /minSuhas Dalton Garrett Work Phone: mp236-7892LK-Rpdel [place] [employer] 250 DO Work Phone: 1(331) 429-761907-18-2023 11:32-0400Systolic blood hsepenmg948 mm[Hg] Suhasraquel Garrett Work Phone: [phone]-Hhqcg [place] [employer] 250 DO Work Phone: 1(949) 523-427006-30-2023 10:30-0400Body qaiqzu619.48 cmSuhas Gaeladan Other [employer] Other 06-30-2023 10:30-0400Body mass index (BMI) [Ratio] 27.98 kg/i9Uzzvf Gaeladan Other [employer] Other 06-30-2023 10:30-0400Body qrgtie27.4 kgSuhas Garrett Other [employer] Other 06-30-2023 10:30-0400Diastolic blood srqpbluu35 mm[Hg] Suhas Garrett Other [employer] Other 06-30-2023 10:30-0400Respiratory rate16 /minCarterraquel Mayoadan Other [employer] Other 06-30-2023 10:30-2917MlM8% (BldA) [Mass fraction]98 % Suhasraquel Garrett Other [employer] Other 06-30-2023 10:30-0400Systolic blood vvhzspyp457 mm[Hg] Suhasraquel Mayoadan Other [employer] Other 04-14-2023 11:45-0400Body umwwih380.48 cmCarterraquel Garrett Other [employer] Other 04-14-2023 11:45-0400Body mass index (BMI) [Ratio] 26.34 kg/n0Ybbcg Kuns Other [employer] Other 04-14-2023 11:45-0400Body ikmhhr58.32 kgCarterraquel Garrett Other [employer] Other 04-14-2023 11:45-0400Diastolic blood ujbcyqol05 mm[Hg] Suhasraqule Mayoadan Other [employer] Other 04-14-2023 11:45-0400Respiratory rate16 /minCarterraquel Garrett Other [employer] Other 04-14-2023 11:45-2203LkS4% (BldA) [Mass fraction]98 % Suhasraquel Mayoadan Other [employer] Other 04-14-2023 11:45-0400Systolic blood mm[Hg] Suhas Garrett Other [employer] Other 02-13-2023 11:30-0500Body .48 cmCarterraquel Tami Other [employer] Other 02-13-2023 11:30-0500Body mass index (BMI) [Ratio] 26.85 kg/e9QqatqSuhas Garrett Other [employer] Other 02-13-2023 11:30-0500Body trhpiq08.59 kgSuhas Garrett Other [employer] Other 02-13-2023 11:30-0500Diastolic blood xwigwxpl18 mm[Hg] Suhas Garrett Other [employer] Other 02-13-2023 11:30-0500Respiratory rate16 /minSuhas Garrett Other [employer] Other 02-13-2023 11:30-7749AkY9% (BldA) [Mass fraction]98 % Suhas Garrett Other [employer] Other 02-13-2023 11:30-0500Systolic blood jahfasnc122 mm[Hg] Suhas Garrett Other [employer] Other 11-09-2022 11:45-0500Body nxyeqy187.48 cmSuhas Garrett Other [employer] Other 11-09-2022 11:45-0500Body mass index (BMI) [Ratio] 26.88 kg/i1IqtslSuhas Garrett Other [employer] Other 11-09-2022 11:45-0500Body orvwkc12.68 kgCarterraquel Garrett Other [employer] Other 11-09-2022 11:45-0500Diastolic blood mm[Hg] Suhas Tami Other [employer] Other 11-09-2022 11:45-0500Respiratory rate16 /minSuhas Garrett Other [employer] Other 11-09-2022 11:45-5502BxM7% (BldA) [Mass fraction]99 % Suhas Garrett Other [employer] Other 11-09-2022 11:45-0500Systolic blood emxavfdc887 mm[Hg] Suhas Garrett Other [employer] Other 09-16-2022 10:15-0400Body iiniwj559.48 cmSuhas Garrett Other [employer] Other 09-16-2022 10:15-0400Body mass index (BMI) [Ratio] 27.07 kg/o5QfgreSuhas Garrett Other [employer] Other 09-16-2022 10:15-0400Body czqyvp33.13 kgSuhas Garrett Other [employer] Other 09-16-2022 10:15-0400Diastolic blood gyzrpqqj88 mm[Hg] Suhas Garrett Other [employer] Other 09-16-2022 10:15-0400Respiratory rate16 /minSuhas Garrett Other noMeilimei Other 09-16-2022 10:15-2214UbM8% (BldA) [Mass fraction]97 % Suhas Garrett Other noMeilimei Other 09-16-2022 10:15-0400Systolic blood gcteuxhs682 mm[Hg] Suhas Garrett Other [employer] Other 09-15-2022 10:45-384792 1Bprimo Garrett Work Phone: 1([phone]-NmabzPeter [place] [address]A [place] Work Phone: Comment on above:[id number] 15:45-0400Body .48 cmSuhas Garrett Other [employer] Other 09-08-2022 15:45-0400Body mass index (BMI) [Ratio]26.7 kg/g7NvdzwSuhas Garrett Other [employer] Other 09-08-2022 15:45-0400Body bjkxid20.23 kgSuhas Garrett Other [employer] Other 09-08-2022 15:45-0400Diastolic blood fqzkyotq11 mm[Hg] Suhas Garrett Other [employer] Other 09-08-2022 15:45-0400Respiratory rate16 /minSuhas Garrett Other [employer] Other 09-08-2022 15:45-9205DhB5% (BldA) [Mass fraction]96 % Suhas Garrett Other [facility] [employer] Other 09-08-2022 15:45-0400Systolic blood mm[Hg] Suhas Garrett Other [facility] Other 07-20-2022 11:04-0400Body jtolsf741.48 cmSuhas Garrett Work Phone: mp124-7459IT-Vgxnq [place] 250 DO Work Phone: 1(627) 687-710907-20-2022 11:04-0400Body mass index (BMI) [Ratio] 26.16 kg/w6ZquagSuhas Garrett Work Phone: mp845-3357YZ-Fmbgp [place] 250 DO Work Phone: 1(374) 112-521907-20-2022 11:04-0400Body surface area Derived from formula1.66 j0ZvgdsSuhas Garrett Work Phone: mp037-7826NR-Qfrnp [place] 250 DO Work Phone: 1(533) 312-938207-20-2022 11:04-0400Body ytqfxh98.86 kgSuhas Garrett Work Phone: 1(963) 522-9765499-9230SB-Xikby [place] 250 DO Work Phone: 1(955) 522-866207-20-2022 11:04-0400Diastolic blood aonqycyr28 mm[Hg] Suhas Garrett Work Phone: mp221-7597GG-Etssy [place] 250 DO Work Phone: 1(350) 199-934407-20-2022 11:04-0400Heart rate56 /minSuhas Garrett Work Phone: mp340-0724AP-Sjjwj [place] 250 DO Work Phone: 1(375) [phone] 11:04-0400Systolic blood qchovuep435 mm[Hg] Suhas Garrett Work Phone: mp460-5214FA-Hyzcc [place] 250 DO Work Phone: 1(879) 255-553207-20-2022 11:00-0400Diastolic blood afipdmcn60 mm[Hg] Suhas Garrett Work Phone: 1(471) [phone]-[facility]ayL[facility] 250 DO Work Phone: 1(758) [phone] 11:00-0400Systolic blood nvsarikg428 mm[Hg] Suhas Mayos Work Phone: 1(542) [phone]-MggcoLakeWood Health CenterTatyana 250 DO Work Phone: 1(910) 191-271207-07-2022 11:39-0400Diastolic blood mm[Hg] Suhas Garrett Work Phone: 1(246)[facility] Work Phone: 1(740) 455-827407-07-2022 11:39-0400Systolic blood mm[Hg] Suhas Garrett Work Phone: 1(668)[address] [place] [address] Work Phone: 1(349) 546-482807-07-2022 11:22-0400Diastolic blood oadquafn06 mm[Hg] Suhas Garrett Work Phone: 1(131)[address] [place] [address] Work Phone: 1(531) [phone] 11:22-0400Systolic blood umdbhvxm236 mm[Hg] Suhas Mayos Work Phone: 1(880)[address] [place] [address] Work Phone: 1(301) [phone] 11:17-0400Body erwunf935.48 cmSuhas Garrett Work Phone: 1(095)[address] [place] [address] Work Phone: [phone] 11:17-0400Body mass index (BMI) [Ratio] 26.52 kg/c9ZqyisSuhas Garrett Work Phone: 1(744)[facility] [place] [address] Work Phone: [phone] 11:17-0400Body surface area Derived from formula1.67 m0NphkuSuhas Garrett Work Phone: 1(899)[facility] [place] [address] Work Phone: 1(456) 324-905607-07-2022 11:17-0400Body aqlrnn66.77 kgCarterraquel Garrett Work Phone: [facility] Work Phone: [phone])565-213-675939-04 11:17-0400Diastolic blood mm[Hg] Suhas Dalton Garrett Work Phone: [facility] Work Phone: 1(154) 187-733907-07-2022 11:17-0400Heart rate60 /minSuhas Dalton Garrett Work Phone: [facility] Work Phone: 1(578) 168-606507-07-2022 11:17-0400Systolic blood mm[Hg] Suhas Dalton Garrett Work Phone: [facility] Work Phone: 1(565) [phone] 13:30-0400Body juovjs991.48 cmSuhas Garrett Other [employer] Other 04-25-2022 13:30-0400Body mass index (BMI) [Ratio] 26.34 kg/h2AjvrzSuhas Garrett Other [employer] Other 04-25-2022 13:30-0400Body .32 kgSuhas Tami Other [employer] Other 04-25-2022 13:30-0400Diastolic blood bujdybsx52 mm[Hg] Suhas Garrett Other [employer] Other 04-25-2022 13:30-0400Respiratory rate18 /minSuhas Garrett Other [employer] Other 04-25-2022 13:30-5016MpG3% (BldA) [Mass fraction]99 % Suhas Garrett Other [employer] Other 04-25-2022 13:30-0400Systolic blood wwfkvkiu401 mm[Hg] Suhas Garrett Other [employer] Other 02-24-2022 13:30-0500Body giszvu348.48 cmCarterraquel Garrett Other [employer] Other 02-24-2022 13:30-0500Body mass index (BMI) [Ratio] 26.52 kg/m7Omdso Tami Other [employer] Other 02-24-2022 13:30-0500Body .77 kgCarterraquel Garrett Other [employer] Other 02-24-2022 13:30-0500Diastolic blood ahjfnwzs02 mm[Hg] Suhas Tami Other [employer] Other 02-24-2022 13:30-0500Respiratory rate16 /minSuhas Mayoadan Other [employer] Other 02-24-2022 13:30-6618IvT7% (BldA) [Mass fraction]99 % Suhas Garrett Other [employer] Other 02-24-2022 13:30-0500Systolic blood iucilwnz389 mm[Hg] Suhas Tami Other [employer] Other 11-18-2021 13:30-0500Body dapzli254.48 cmSuhas Garrett Other [employer] Other 11-18-2021 13:30-0500Body mass index (BMI) [Ratio] 25.97 kg/t2IpxhcSuhas Garrett Other no[employer]i Other 11-18-2021 13:30-0500Body laxfwj94.41 kgSuhas Garrett Other [employer] Other 11-18-2021 13:30-0500Diastolic blood wrtqxwil79 mm[Hg] Suhas Garrett Other [employer] Other 11-18-2021 13:30-0500Respiratory rate17 /minSuhas Garrett Other noMe[employer]i Other 11-18-2021 13:30-2091NcE8% (BldA) [Mass fraction]98 % Suhas Garrett Other [employer] Other 11-18-2021 13:30-0500Systolic blood chyyirmh194 mm[Hg] Suhas Garrett Other [employer] Other Encounters Encounter DateEncounter TypeCare ProviderFacilityStart: 04-18-2025 End: 28-79-9074dvmerzdomwTuqjakq Vytautas Giedraitis MDFacility:[facility] Start: 04-04-2025 End: 07-17-9007locudjsxmhZvitsxn Vytautas Giedraitis MDFacility:[facility] Start: 02-14-2025 End: 03-56-9034zvwwhivsfbZkvpfoj Vytautas Giedraitis MDFacility:[facility] Start: 01-14-2025 End: 88-68-8603Dceomu outpatient visit 25 minutesHasiva Wolf MD Work Phone: [facility] on above:Nonrheumatic aortic valve stenosis (Primary Dx); 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; Hyperlipidemia, unspecified hyperlipidemia type; PMR (polymyalgia rheumatica) (Multi); Hypothyroidism, unspecified type; BMI 27.0-27.9,adult; Never smoked any substance; OverweightStart: 01-14-2025 End: 87-25-0150fxhlcxjvocLPDBJHWellstar [facility]ylvan [facility] AmbulatoryStart: 12-21-2024 End: 96-03-0239Vzpivvwqiy hospital visit by physicianSusie Baker Echo/Vasc Room [address] [place], [place] [address]Comment on above:Aortic valve stenosis, etiology of cardiac valve disease unspecifiedStart: 12-21-2024 End: 86-62-3770kjhzysaiaiDYEMNHCleveland Clinic Medina Hospitaltart: 12-07-2024 End: 74-19-7196Gvgfxj outpatient visit [address] BURGER Work Phone: uh [facility] HospitalComment on above: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 (Primary Dx); BMI 26.0-26.9,adultStart: 12-07-2024 End: 70-42-1921abcomqjkvpRHUAVFormerly [facility] AmbulatoryStart: 10-25-2024 End: 89-01-1210jnxallvsidQvlrcnoJonny Weston MDFacility:[facility] Start: 09-13-2024 End: 92-20-5311wkjqlqvsceKmgxwpkJonny Weston MDFacility:[facility] Start: 07-28-2024 End: 80-58-0898uqmwbzhoxqBzlcz KunsFacility:[facility] Start: 05-25-2024 End: 54-41-8608rnsbkdhffxEohtd KunsFacilharrison community hospital:[facility] Start: 04-16-2024 End: 70-40-3665Ktoxxl outpatient visit 25 Arcenio Wolf MD Work Phone: uh [facility] HospitalCom[facility]-[place] on above:Aortic valve stenosis, etiology of cardiac valve disease unspecified (Primary Dx); Essential hypertension; Hyperlipidemia, unspecified hyperlipidemia type; Never smoked any substance; BMI 26.0-26.9,adult; Hypothyroidism, unspecified typeStart: 04-16-2024 End: 08-95-2994amafpnkatsEFYLAU [facility] AmbulatoryStart: 02-11-2024 End: 25-98-3871Rcyfcwdpli hospital visit by Julia Baker Echo[facility]Vasc Room 2[facility] CenterComment on above:Nonrheumatic aortic valve stenosis; Aortic valve stenosis, etiology of cardiac valve disease unspecifiedStart: 02-11-2024 End: 59-15-5574qghrmiyhviILOKHN [facility] CenterStart: 10-14-2023 End: 19-34-1428pecsfbekqiIlbxu KunsFacility:[facility] Start: 09-03-2023 End: 41-36-6521nojxrvdrnmGdxox KunsFacility:[facility] Start: 07-18-2023 End: 48-12-5800aakxjgplvtKlmgz Kuns Other [employer] Other Start: 68-66-6111Didklqbuz encounterBryraquel [facility] CastaliaStart: 07-15-2023 End: 03-70-4949gnzqzegvdpCxxxq Kuns Other [employer] Other Start: 86-35-7743Gyyyokfsq encounterBryraquel Sommers [facility] CastaliaStart: 07-10-2023 End: 02-40-1851aduyxlfroqAmujz Kuns Other noMeilimei Other Start: 68-95-2022Pbzdopdpi encounterBryraquel ManciniG Family Medicine CastaliaStart: 07-07-2023 End: 79-39-9807cxlaqvaflyTunog Kuns Other [employer] Other Start: 47-15-7308Dgoljfvlb encounterBryraquel GarrettFPG Family Medicine CastaliaStart: 07-04-2023 End: 22-78-5955fwxayvlbtbOyoxq Kuns Other noMeilimei Other Start: 20-99-2189Epytpm outpatient visit 15 minutes Suhas [facility] CastaliaStart: 06-19-2023 End: 01-78-6057qbbylqzuisSdopb Kuns Other [employer]il[employer] Other Start: 95-08-6489Dblfrttli encounterBryraquel GarrettShravan Family Medicine CastaliaStart: 06-19-2023 End: 11-55-5638Znbmzd outpatient visit 25 minutesMichel Wolf MD Work Phone: uh FirelandsComment on above:Aortic valve stenosis, etiology of cardiac valve disease unspecified; Essential hypertension; Hyperlipidemia, unspecified hyperlipidemia type; Never smoked any substanceStart: 05-30-2023 End: 63-60-5608yklbbizicuZtdlg Kuns Other [employer] Other Start: 57-94-6164Qmtanp outpatient visit 25 minutes Suhas GarrettShravan Family Medicine CastaliaStart: 05-28-2023 End: 78-08-4517cpsrlzrqseNyahw Kuns Other [employer]il[employer] Other Start: 92-25-7058Pqzemxkgc encounterBryraquel Sommers [facility] CastaliaStart: 04-23-2023 End: 30-37-0230vcvkmbrapyFwiun Kuns Other [employer] Other Start: 99-44-9441Mkkqdkvlr encounterBryraquel Sommers [facility] CastaliaStart: 04-18-2023 End: 67-69-7607lsrsuisgqfOibdu Kuns Other [employer]il[employer] Other start: 12-57-0805Hkjqcliht encounterSuhas [facility]mers [facility] CastaliaStart: 01-60-7705Oxicr UpdateBryraquel Garrett Work Phone: [phone]-CplmpElbow [facility] 250 DO Work Phone: Start: 02-28-2023 End: 09-67-4348nsdswfaosuDmvqf Kuns Other [employer] Other Start: 35-03-5586Avzcqg outpatient visit 15 minutes Suhas [facility] CastaliaStart: 16-47-4216mesouphhujMoKathy GarrettSanta Ana Health Center:9844Start: 01-27-2023 End: 24-97-8945xcwutntkugCwydf Kuns Other [employer] Other Start: 98-00-9946Gphnlewah encounterSuhas Sommers [facility] CastaliaStart: 07-58-7176Ypwkyr outpatient visit 25 minutesSuhas Garrett Work Phone: [phone]-DgmthElbow Lake Medical Center 250 DO Work Phone: Start: 40-02-6936skchuhwmevTgKathy Parkahim Facility:[id number]: 12-06-2022 End: 98-49-9067ohmbsayzumTzjri Kuns Other [employer] Other Start: 11-47-6062Bcofhe outpatient visit 15 minutes Suhas [facility] CastaliaStart: 09-20-2022 End: 94-97-4748ibvevuujhpAgahm Kuns Other [employer] Other Start: 38-78-4398Thjkxu outpatient visit 15 minutes Suhas [facility] CastaliaStart: 08-14-2022 End: 05-66-8845dtlaxknzqkCwkjd Kuns Other [employer] Other Start: 28-14-9272Xfquewtha encounterBryraquel ManciniG Family Medicine CastaliaStart: 07-22-2022 End: 48-22-4814rbemuqyxofZggat Kuns Other [employer] Other Start: 74-50-2539Nrvxhq outpatient visit 15 minutes Suhas ManciniG [facility] CastaliaStart: 04-17-2022 End: 81-87-2292ztdqwkdfpdAwoqe Kuns Other [employer] Other Start: 48-57-6033Shugia outpatient visit 15 minutes Suhas ManciniG [facility] CastaliaStart: 04-10-2022 End: 77-67-7257ktaxfzsvgtKjwly Kuns Other [employer] Other Start: 40-61-7454Lpcvpyhxp encounterBryraquel GarrettFPG Family Medicine CastaliaStart: 04-03-2022 End: 59-92-5709qdleifzqexFokjs Kuns Other [employer] Other Start: 70-49-7141Xnqlqywxt encounterBryraquel GarrettFPG [facility] CastaliaStart: 04-02-2022 End: 02-53-5096ymyqcpicvmKhwmd Kuns Other [employer] Other Start: 75-12-0105Fzihoppnx encounterBryraquel GarrettFPG [facility] CastaliaStart: 02-26-2022 End: 87-70-2362bptffiafwlIduin Kuns Other [employer] Other Start: 92-35-2776Jkgdkfesd encounterBryan GaelsFPG Family Medicine CastaliaStart: 02-25-2022 End: 01-01-0671sdzedjwhqxEoqbx Kuns Other [employer] Other Start: 39-06-6707Zzbinqcax encounterSuhas Sommers Family [facility] CastaliaStart: 02-22-2022 End: 04-88-5857dyafmnarisAywyb Kuns Other [employer] [facility] [employer] Other Start: 67-75-1731Lyslfu outpatient visit 25 minutes Suhas MayoCory Family Medicine CastaliaStart: 30-73-6023Abmsrho encounter procedureSuhas Garrett Work Phone: [phone]-JfrsaAmber [place] [address]A [place] Work Phone: Start: 02-20-2022 End: 32-45-6826adhwomftgwIEBTBYV M MANONFacility:O2Ozkyk: 02-14-2022 End: 09-52-2708prteueqhzjNpmtm Kuns Other [employer] Other Start: 13-82-7306Sshnfr outpatient visit 25 minutes Suhas GaelCory Family Medicine CastaliaStart: 01-11-2022 End: 12-60-8018jetrdckpvzSkiyt Kuns Other [employer] Interactiveell[facility] [employer] Other Start: 88-57-4838Xtcgwud evaluation of patient and reportCarterraquel Matthieu Family [facility] CastaliaStart: 62-25-3287Ckqlorbap encounter Suhas [facility] CastaliaStart: 91-74-3519Fmyrbo outpatient visit 10 minutesSuhas Garrett Work Phone: [phone]-WuovgFairmont Hospital and Clinic 250 DO Work Phone: Start: 47-65-9930zvwjsxcdcmIp. Bryan Patrick Kuns Facility:[id number]: 12-20-2021 End: 53-75-0817wjzkvehmiyGuedz Kuns Other [employer] Other Start: 51-96-3752Gfrptoozs encounterBryraquel MayosFPG Family Medicine CastaliaStart: 13-07-6013Rdlzqu outpatient visit 25 minutesSuhas Garrett Work Phone: [facility] Work Phone: Start: 11-02-2021 End: 18-19-7287itkjyvudzwHcwxi Kuns Other [employer] Other Start: 97-27-2967Mgvtpiwnz encounterBryraquel MayosFPG Family Medicine CastaliaStart: 10-01-2021 End: 13-35-7215lefkyutwbcUszut Kuns Other [facility] [employer] Other Start: 61-05-9641Iqpxhq outpatient visit 15 minutes Suhas GaeladanFPG Family Medicine CastaliaStart: 09-10-2021 End: 94-95-9463ipsdwseowiToojz Kuns Other [employer] Other Start: 81-57-0859Wjervwcyu encounterBryraquel MayosFPG Family Medicine CastaliaStart: 08-20-2021 End: 97-75-9626ibdwfxowsoVtpvj Kuns Other [employer] Other Start: 57-97-2392Xuxpownny encounterBryraquel MayosFPG Family Medicine CastaliaStart: 08-02-2021 End: 20-49-3902kqjcluupcxTvnjw Kuns Other [employer]il[employer] Other Start: 06-61-6590Brnpna outpatient visit 15 minutes Suhasraquel MayosFPG Family Medicine CastaliaStart: 07-25-2021 End: 60-43-4304muzalqbpxyRnlqe Kuns Other [facility] [employer] Other Start: 28-02-2488Swzwmcvie encounterSuhas Sommers Family Medicine CastaliaStart: 05-08-2021 End: 73-06-3594jfbjzwbzfePmyqq Kuns Other [facility] [employer] Other Start: 21-29-9167Sueaneqyq encounterSuhas Sommers Family [facility] CastaliaStart: 04-26-2021 End: 46-79-5150pwfcsealvcTvkbb Kuns Other [facility] [employer] Other Start: 00-98-6914Bpjqdn outpatient visit 25 minutes Suhasraquel GarrettCl[facility] [place] Procedures DateProcedureProcedure Detail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Start: 48-10-8645Gypj ttc r-t 2d w/wom-mode compl spec&colr Clayton Wolf MD Work Phone: Start: 10-40-7490LhudtjdykuaeweryKlxzj P Kuns Work Phone: Start: 53-63-7916KymsgsufnevekxiwQlgak P Kuns Work Phone: AppendectomyBryan P Kuns Work Phone: CholecystectomyBryan P Kuns Work Phone: Operation on ovaryBryan P Kuns Work Phone: ThyroidectomyBryan P Kuns Work Phone: Total colonoscopyBryan P Kuns Work Phone: Plan of Treatment DateCare ActivityDetailAuthorStart: 56-26-6978QThC/Tdap/Td Vaccines (2 - Td or Tdap)DTaP/Tdap/Td Vaccines (2 - Td or Tdap)[facility] Start: 01-26-2026 End: 21-10-5419Wcnngbl encounter vlthmstoq59/20/2026 11:00 AM EDT Office Visit [facility] [address] [facility] [address] [place] [address] Michel Wolf MD [address] [place] [address] [facility]: 43-50-2307XsvnonprrczavllrMzcluisicpafhg [facility]: 12-20-2025 End: 88-01-9480Obhwwzm encounter qupacvjdi76/14/2026 10:45 AM EDT Appointment [facility] [address] [facility] [address] [place] [address] [facility] 12-14-2025 End: 21-74-7078PD Heart TransthoracicTransthoracic Echo Complete Echocardiography Routine Nonrheumatic aortic valve stenosis Expected: 12/14/2025 (Approximate), Expires: 01/14/2027[facility] Service Area Work Phone: Comment on above:Expected: 12/14/2025 (Approximate), Expires: 01/14/2027Start: 03-01-2026Medicare Annual Wellness VisitMedicare Annual Wellness Visit (AWV)[facility]: 02-10-2025 EchocardiographyEchocardiogramUnPaulding [facility]: 02-07-2025 Influenza vaccinationInfluenza Vaccine (#1)[facility] Start: 01-14-2025 End: 56-27-5319PV Heart TransthoracicTransthoracic Echo Complete Echocardiography Routine Aortic valve stenosis, etiology of cardiac valve disease unspecified Expected: 01/14/2025 (Approximate), Expires: 04/16/2026[facility] Service Area Work Phone: Comment on above:Expected: 01/14/2025 (Approximate), Expires: 04/16/2026Start: 01-14-2025 End: 08-14-1197Cdfdxuq encounter btubbljbx93/08/2025 11:00 AM EDT Office Visit [address] [place] [address] Michel Wolf MD [address] [facility] [address] [place] [address] [facility]: 12-21-2024 End: 69-83-0919Whlrtju encounter bcigfxrgd75/15/2025 12:30 PM EDT Appointment [place] [address] [place] [address] [facility]: 56-35-2641UDSFJ-19 Vaccine ( season)COVID-19 Vaccine ()[facility]: 03-16-2024 End: 81-46-2248Wginxpj encounter tqrrmaxhg93/08/2024 11:20 AM EDT Office Visit [address] [address] Michel Wolf MD [address] [facility] [address], [address] [place] [address] [facility]: 58-65-4190Gqlgwvirw for osteoporosisBone Density [facility]: 02-11-2024 End: 36-99-8059Ooeceoy encounter aiqjpjsck89/04/2024 12:30 PM EDT Appointment [address] [phone] [facility]: 75-48-9505ZLSES-19 Vaccine ( season)COVID-19 Vaccine ()[facility]: 02-08-2024 Influenza vaccinationInfluenza Vaccine (#1)[facility] Start: 02-08-2024 End: 80-93-1204VP Heart TransthoracicTransthoracic Echo (TTE) Complete Echocardiography Routine Aortic valve stenosis, etiology of cardiac valve disease unspecified Expected: 02/08/2024 (Approximate), Expires: 06/19/2025[facility] Service Area Work Phone: Comment on above:Expected: 02/08/2024 (Approximate), Expires: 06/19/2025Start: 22-27-8468PVE, Provider: Michel Wolf, Status: Pen, Time: 11:00 AMFUV, Provider: Michel Wolf, Status: Pen, Time: 11:00 AM-[facility] 250 DO Work Phone: Start: 39-04-9695ZRNUV-19 Vaccine (5 - Moderna series) COVID-19 Vaccine (5 - Moderna series)[facility]: 60-71-9851JWQR, Provider: TATYANA HHVI ULTRASOUND 01,[id number], Status: Pen, Time: 10:45 AMECHO, Provider: TATYANA HHVI ULTRASOUND 01,[id number], Status: Pen, Time: 10:45 AM[facility] 250 DO Work Phone: Start: 07-00-7171ONY, Provider: Michel Wolf, Status: Pen, Time: 11:20 AMFUV, Provider: Michel Wolf, Status: Pen, Time: 11:20 AM[facility] Work Phone: Start: 92-73-2369MULWCTS, Provider: TATYANA HHVI ULTRASOUND 01,[id number], Status: Pen, Time: 12:30 PMCAROTID, Provider: TATYANA HHVI ULTRASOUND 01,[id number], Status: Pen, Time: 12:30 [facility] Work Phone: start: 96-79-0437CTFD, Provider: TATYANA HHVI ULTRASOUND 01,[id number], Status: Pen, Time: 10:45 AMECHO, Provider: TATYANA HHVI ULTRASOUND 01,[id number], Status: Pen, Time: 10:45 [facility] Work Phone: start: 92-06-6188DWXIDDH, Provider: TATYANA HHVI ULTRASOUND 01,[id number], Status: Pen, Time: 2:30 PMCAROTID, Provider: TATYANA HHVI ULTRASOUND 01,[id number], Status: Pen, Time: 2:30 PM[facility] Work Phone: Start: 82-11-6479ZFPO, Provider: TATYANA HHVI ULTRASOUND 01,[id number], Status: Pen, Time: 1:30 PMECHO, Provider: TATYANA HHVI ULTRASOUND 01,[id number], Status: Pen, Time: 1:30 PM[facility] Work Phone: Start: 91-64-4715OILTKXNR, Provider: MAGDA DANIEL ASSISTANT PROFESSOR OF PSYCHOLOGY 1,[id number], Status: Pen, Time: 11:00 AMNURSEVST, Provider: MAGDA DANIEL ASSISTANT PROFESSOR OF PSYCHOLOGY 1,[id number], Status: Pen, Time: 11:00 AM[facility] Work Phone: Start: 33-22-7687Bjnznpbda B Vaccines (1 of 3 - Risk 3-dose series)Hepatitis B Vaccines (1 of 3 - Risk 3-dose series)[facility]: 84-75-7537Sqdfmeqnx A Vaccines (1 of 2 - Risk 2- dose series)Hepatitis A Vaccines (1 of 2 - Risk 2-dose series)[facility]: 65-01-1942Awxsvnysfr measurementCreatinine Level [facility]: 66-71-2332Wryof panelLipid Panel [facility]: 03-04-1937Medicare Annual Wellness Visit Medicare Annual Wellness Visit (AWV)[facility]: 32-99-0766Tizccmwzn measurementPotassium [facility] Start: 80-77-5775Azdqbkr stimulating hormone measurementTSMcBride Orthopedic Hospital – Oklahoma CityECG 12 LeadECG 12 Lead ECG Routine 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 Ordered: 12/08/2024[facility] Service Area Work Phone: Comment on above:Ordered: 12/08/2024 End: 99-05-3639OY Heart TransthoracicPRESBYTERIAN ESP[facility]OLA [facility] Service Area Work Phone: Comment on above:Once for 1 Occurrences starting 02/11/2024 until 02/11/2024 Immunizations Immunization DateImmunizationNotesCare FirbjvurIkxqfnub53-75-4686Lcqghzvsiqyr conjugate vaccine, 20-valent (PREVNAR 20)Michel Wolf MD Work Phone: [facility] Work Phone: [phone]bd COVID-19 vaccine, 12 years and older (50mcg/0.5mL)(Spikevax)Michel Wolf MD Work Phone: [facility] Work Phone: [phone]cusbu trivalent influenza vaccine, adjuvanted, preservative freeMichel Wolf MD Work Phone: [facility] Work Phone: [phone]en virus vaccine, unspecified formulationReuben Burns APRNSIMEON Work Phone: [facility] Work Phone: [phone]A SYNCYTIAL VIRUS (RSV), ELIGIBLE PTS, 0.5 ML (ABRYSVO)Michel Wolf MD Work Phone: [facility] Work Phone: [phone]nn, Seasonal, Quadrivalent, AdjuvantedMichel Wolf MD Work Phone: [facility] Work Phone: [phone] COVID-19 vaccine, 12 years and older (50mcg/0.5mL)(Spikevax)Michel Wolf MD Work Phone: [facility] Work Phone: [phone]yg virus vaccine, unspecified formulationEly [address] [place] [address] Work Phone: [phone] COVID-19 Bivalent 50 MCG/0.5ML Intramuscular SuspensionBryan P Kuns Work Phone: [phone]-QcsnvSteven [facility] 250 DO Work Phone: [phone]kk Quadrivalent 0.5 ML Intramuscular Prefilled SyringeBryan P Kuns Work Phone: [phone]-UjdzjSteven Community Medical Center 250 DO Work Phone: [phone], seasonal, injectableBryan Kuns Other [facility] [employer] Other 06209059-93-0359Rssywgy COVID-19 Vaccine 100 MCG/0.5ML Intramuscular SuspensionBryan P Kuns Work Phone: [facility] Work Phone: [phone] COVID-19 Vaccine 100 MCG/0.5ML Intramuscular SuspensionBryan P Kuns Work Phone: [facility] Work Phone: [phone], seasonal, injectableBryan Kuns Other [facility] [employer] Other [id number] COVID-19 Vaccine 100 MCG/0.5ML Intramuscular SuspensionBryan P Kuns Work Phone: [facility] Work Phone: [phone]n COVID-19 Vaccine 100 MCG/0.5ML Intramuscular SuspensionBryan P Kuns Work Phone: [facility] Work Phone: [phone] polysaccharide vaccine, 23 valentBryan Kuns Other [employer] Other 09-044525-75-1607Kidjkxjy trivalent influenza vaccine, adjuvanted, preservative freeBryan P Kuns Work Phone: [facility] Work Phone: [phone], seasonal, injectableBryan Kuns Other [employer] Other 09-078549-43-0477iurkypqok virus vaccine, unspecified formulationBryan P Kuns Work Phone: [facility] Work Phone: [phone], seasonal, injectableBryan Kuns Other [employer] Other 11-770874-25-3656xmfkpa vaccine recombinantBryan Kuns Other [employer] Other 10-842731-56-7208iawzmyvgq, high dose seasonal, preservative-freeBryan P Kuns Work Phone: [facility] Work Phone: [phone], seasonal, injectableBryan Kuns Other [employer] Other 08-526142-18-7783lgruvl vaccine recombinantBryan Kuns Other [employer] Other 12035791-25-8738lljxtlp toxoid, reduced diphtheria toxoid, and acellular pertussis vaccine, adsorbedBryan Kuns Other [employer] Other 10001869-43-7764Zoqrkwun trivalent influenza vaccine, adjuvanted, preservative freeMichel Wolf MD Work Phone: [facility] Work Phone: [phone]rfxv virus vaccine, unspecified formulationBryan P Kuns Work Phone: [facility] Work Phone: [phone]sceq virus vaccine, unspecified formulationBryan P Kuns Work Phone: [facility] Work Phone: [phone] trivalent influenza vaccine, adjuvanted, preservative freeBryan P Kuns Work Phone: [facility] Work Phone: [phone]qtslcmoangw conjugate vaccine, 13 valent Michel Wolf MD Work Phone: [facility] Work Phone: [phone]stpyxuznm conjugate vaccine, 13 valent Suhasraquel Garrett Other [facility] [employer] Other 10-815216-32-4040Nasmcyfr trivalent influenza vaccine, adjuvanted, preservative freeBryan P Kuns Work Phone: [facility] Work Phone: [phone]cxbtddci virus vaccine, unspecified formulationBryan P Kuns Work Phone: [facility] Work Phone: [phone]qniqrrjilba conjugate vaccine, 13 valent Suhas P Kuns Work Phone: [facility] Work Phone: [phone]expwygpm, injectable, quadrivalent, contains preservativeBryan P Kuns Work Phone: [facility] Work Phone: [phone]eeadozuq virus vaccine, unspecified formulationBryan P Kuns Work Phone: [facility] Work Phone: [phone]cnbesmuo, seasonal, injectable, preservative freeBryan P Kuns Work Phone: [facility] Work Phone: [phone]fulmtcre virus vaccine, whole virusBryan P Kuns Work Phone: [facility] Work Phone: [phone]yqjkidfn, seasonal, injectableBryan P Kuns Work Phone: [facility] Work Phone: [phone]nryjnyfk virus vaccine, unspecified formulationBryan P Kuns Work Phone: [facility] Work Phone: [phone]neaguuhr, injectable, quadrivalent, contains preservativeBryan Kuns Other [facility] [employer] Other 01-310461-05-7842ljfeyaqww virus vaccine, unspecified formulationBryan P Kuns Work Phone: [facility] Work Phone: [phone]fenhegqr virus vaccine, unspecified formulationBryan P Kuns Work Phone: [facility] Work Phone: [phone]rqem virus vaccine, unspecified formulationBryan P Kuns Work Phone: [facility] Work Phone: [phone]lfh fjqlsmxvx-O1L7-27, preservative-free, injectableBryan P Kuns Work Phone: [place] [address] Work Phone: [phone]mdktyj virus vaccineBryan P Kuns Work Phone: [place] [address] Work Phone: [phone]wnwdhsnnjzm polysaccharide vaccine, 23 valentBryan P Kuns Work Phone: [facility] Work Phone: Payers DatePayer CategoryPayerPolicy [id number]-[id number] Care (Private)[facility] Member Subscriber Plan / Payer (Effective 2022-Present) Name: Lavonne Villatoro Relation to Subscriber: Spouse Name: JACE VILLATORO Date of : 1936 (Home) [facility] [place] [id number] Payer ID: [id number] (NAIC) Type: Not on file Address: [address] [place] [id number] Private Health [id number]. Medicare1.2.840.431325.1.13.647.2.7.3.792256.6[id number] [id number] 2..9.107916.32894294-05-2530Jnmpynh Health Insurance [id number] 2..1.87312[id number] 2..1.958271.3.57[id number] 2..1.682466.3.57[id number] 2..1.758633.3.57[id number] 2.1.521010.3.57[id number] 2..1.066290.3.57[id number] 2..1.911653.3.57[id number] 2.16.840.1.753309.3.57[id number] 2.16.840.1.531354.3.57[id number] 2.16.840.1.306396.3.57[id number] 2..840.1.052038.3.57[id number] 2..840.1.078340.3.57[id number] 2..840.1.525246.3.57[id number] 2..840.1.168537.3.57[id number] 2.16.840.1.7[id number] 2.16.840.1.708342.3.579.2.531 [id number] 2.16.840.1.6[id number] 2..840.1.8[id number] 2.0.1.307503.3.579.2.531 Social History DateTypeDetailFacilityUnknown if ever smokedMeilimei Other Start: 06-19-2023 End: 84-61-0652Xyl Assigned At BirthNoMeilimei Other Start: 06-19-2023 End: 12-67-4794Ucuvtfwk useCaffeine useUnLegent Orthopedic Hospital Work Phone: Start: 63-97-9868Projbiz smoking status NHISNever smoked tobaccoMercy Health Tiffin Hospital Work Phone: Start: 31-03-8024Ftfyjbs use and exposureSmokeless tobacco non-userMercy Health Tiffin Hospital Work Phone: Start: 35-56-3974Gjk Assigned At BirthNot on file [facility] Work Phone: Start: 06-09-2023 End: 18-97-6657Mvwdxzxn to SARS-CoV-2 (event)Not sureUnParkview Health Bryan HospitalStart: 04-16-2024 End: 83-98-0479Bbbkwqdtm beverage intakeCurrent drinker of alcohol (finding) [facility] Work Phone: Start: 35-30-8242RaoRpkuddHwykrcgeau [facility] Clinical Notes 02-15-2015 to 01-14-2025 Note Date & [id number] History of Present illness Narrative* Michel Wolf [...] exam, discussion and plan. documented in this [facility] Work Phone: [phone] [id number] Instructions* Patient Instructions* Richelle Frey LPN - [...] through Care Everywhere. * Heart Healthy Diet (Eritrean) documented in this [facility] Work Phone: 1(257) 962-334707-01-2025 History of Present illness Narrative* Reuben Burns APRN-HEAVY MACHINERY ASSEMBLER - 12/07/2024 3:00 PM EDT Subjective: Lavonne [...] documented in patient record. Reuben Burns MSN, RETURNED GOODS REPAIRER-HEAVY MACHINERY ASSEMBLER, PMHNP-[facility] [place], [place] Please excuse any errors in grammar or translation related to this dictation. Voice recognition software was utilized to prepare this document. documented in this [facility] Work Phone: 1(242) 402-988707-01-2025 Instructions* Patient Instructions* JENNYFER Garsia - 12/07/2024 [...] Dr. Wolf as scheduled [facility] Work Phone: 1(459) 347-259907-01-2025 Miscellaneous Notes* Addendum Note - JENNYFER Garsia - 12/07/2024 3:00 PM EDTAddended by: REUBEN BURNS on: 12/08/2024 02:08 PM Modules accepted: Orders documented in this encounterUnPark[facility] Work Phone: 1(395) 991-711307-01-2025 Note* Addendum Note - ARGELIA Garsia CNP - 12/07/2024 3:00 PM EDTAddended by: REUBEN BURNS on: 12/08/2024 02:08 PM Modules accepted: Orders [facility] Work Phone: 1(341) 706-637111-08-2024 History of Present illness Narrative* Michel Wolf [...] exam, discussion and plan. [facility] Work Phone: 1(357) 411-753111-08-2024 Instructions* Patient Instructions* Sherin Mendez LPN - [...] 9 month follow up [facility] Work Phone: 1(678) 643-669802-09-2024 Evaluation note* Encounter Date Diagnosis Assessment Notes Treatment Notes Treatment Clinical Notes Jul, PMR (polymyalgia rheumatica) (IC D-10 - M35.3) [employer] Other 02-06-2024 Evaluation note* Encounter Date Diagnosis Assessment Notes Treatment Notes Treatment Clinical Notes Jul, PMR (polymyalgia rheumatica) (IC D-10 - M35.3) [employer] Other 02-01-2024 Evaluation note* Encounter Date Diagnosis Assessment Notes Treatment Notes Treatment Clinical Notes Jul, Hypothyroidism (ICD-10 - E03.9) [facility] Other 01-29-2024 Evaluation note* Encounter Date Diagnosis Assessment Notes Treatment Notes Treatment Clinical Notes Jun, Hypothyroidism (ICD-10 - E03.9) Jun,Hyperthyroidism (ICD-10 - E05.90) [facility] Other 01-26-2024 Evaluation note* Encounter Date Diagnosis [...] medications in combination with eachother. Also discussed [facility] steriod use in regards to her condition. [...] requires sooner she is welcome to call. [facility] Other 01-11-2024 Evaluation note* Encounter Date Diagnosis Assessment Notes Treatment Notes Treatment Clinical Notes Jun, PMR (polymyalgia rheumatica) (IC D-10 - M35.3) [employer] Other 01-11-2024 History of Present illness Narrative* Mihcel Wolf MD - 06/19/2023 11:00 AM EST [...] of Michel Wolf MD. documented [facility] Work Phone: 1([phone]) 135-308301-11-2024 Instructions* Patient Instructions* Yevgeniy Cortez MA - [...] your visit. documented in this [facility]Mer[facility] Work Phone: [phone]) 532-671112-22-2023 Evaluation note* Encounter Date Diagnosis Assessment Notes [...] recommend the patient get the RSV vaccine. [employer] Other 12-20-2023 Evaluation note* Encounter Date Diagnosis Assessment Notes Treatment Notes Treatment Clinical Notes May, Hypertension (ICD-10 - I10) May,Hypothyroidism (ICD-10 - E03.9) [employer] Other 11-10-2023 Evaluation note* Encounter Date Diagnosis Assessment Notes Treatment Notes Treatment Clinical Notes Apr, PMR (polymyalgia rheumatica) (IC D-10 - M35.3) [employer] Other 09-22-2023 Evaluation note* Encounter Date Diagnosis Assessment Notes Treatment Notes Treatment Clinical Notes Feb, PMR (polymyalgia rheumatica) (IC D-10 - M35.3) She was encouraged to take 2.5mg daily. Patient is agreeable. Feb,Hypertension (ICD-10 - I10) Blood pressure is satisfactory, she is to follow with cardiology as scheduled. [facility] Other 08-21-2023 Evaluation note* Encounter Date Diagnosis Assessment Notes Treatment Notes Treatment Clinical Notes Jan, Hypertension (ICD-10 - I10) [facility] Other 06-30-2023 Evaluation note* Encounter Date Diagnosis [...] very confident this is due to the [facility]. She will see Dr. Wolf in three weeks therefore was advised to make sure she discusses the swelling with him and see what he would like to do. Patient is agreeable. [employer] Other 04-14-2023 Evaluation note* Encounter Date Diagnosis [...] tablets daily. We will continue to monitor. [employer] Other 03-08-2023 Evaluation note* Encounter Date Diagnosis Assessment Notes Treatment Notes Treatment Clinical Notes Aug, PMR (polymyalgia rheumatica) (IC D-10 - M35.3) [employer] Other 02-13-2023 Evaluation note* Encounter Date Diagnosis [...] states she has an upcoming appointment with balance wheel arm burnisher and she will discuss making medication changes at that time. [employer] Other 11-09-2022 Evaluation note* Encounter Date Diagnosis [...] she can cut Apr,Hyperlipidemia (ICD-10 - E78.5) [employer] Other 11-02-2022 Evaluation note* Encounter Date Diagnosis Assessment Notes Treatment Notes Treatment Clinical Notes Apr, PMR (polymyalgia rheumatica) (IC D-10 - M35.3) [employer] Other 10-26-2022 Evaluation note* Encounter Date Diagnosis Assessment Notes Treatment Notes Treatment Clinical Notes Mar, Lumbar back pain (ICD-10 - M54.5 0) [employer] Other 09-20-2022 Evaluation note* Encounter Date Diagnosis Assessment Notes Treatment Notes Treatment Clinical Notes Feb, Elevated liver function tests (I CD-10 - R79.89) [employer] Other 09-16-2022 Evaluation note* Encounter Date Diagnosis Assessment Notes Treatment Notes Treatment Clinical Notes Feb, Acute pain of left shoulder (ICD -10 - M25.512) [facility] report reviewed from 02/20/22 . The [...] pain (ICD-10 - R10.13) The patient advised [place] could be causing her GI upset , [...] month [place] at her next office visit. [employer] Other 09-08-2022 Evaluation note* Encounter Date Diagnosis [...] (ICD-10 - M85.80) Noted on Lumbar x-ray. [employer] Other 08-05-2022 Evaluation note* Encounter Date Diagnosis Assessment Notes Treatment Notes Treatment Clinical Notes Jan, COVID-19 (ICD-10 - U07.1) [employer] Other 08-05-2022 Evaluation note* Encounter Date Diagnosis Assessment Notes Treatment Notes Treatment Clinical Notes Jan, Cough (ICD-10 - R05.9) In house covid test is positive. Treatment plan discussed in TE. 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 I did forward a copy of most current blood work results . [facility] Other 04-04-2022 Evaluation note* Encounter Date Diagnosis Assessment Notes Treatment Notes Treatment Clinical Notes Sep, PMR (polymyalgia rheumatica) (IC D-10 - M35.3) Sep,Hypertension (ICD-10 - I10) [employer] Other 02-24-2022 Evaluation note* Encounter Date Diagnosis [...] if needed. We will continue to montior. [facility] Other 02-16-2022 Evaluation note* Encounter Date Diagnosis Assessment Notes Treatment Notes Treatment Clinical Notes Jul, PMR (polymyalgia rheumatica) (IC D-10 - M35.3) [employer] Other 11-30-2021 Evaluation note* Encounter Date Diagnosis Assessment Notes Treatment Notes Treatment Clinical Notes Apr, PMR (polymyalgia rheumatica) (IC D-10 - M35.3) [employer] Other 11-18-2021 Evaluation note* Encounter Date Diagnosis [...] Apr,Hypothyroidism (ICD-10 - E03.9) Blood work ordered. [employer] Other [id number] History general Narrative - Reported* Type Description Date Medical History Seanmaria gnicki Medical [id number], 02-15-15-mammogram-negativeMedical History 01/20122643-ucymxrlzdsp-onsctp, repeat in 3 yrsMedical Zomzlol47/2017- colonoscopy- normalMedical Historyf/u with cardiology NOHCMedical HistoryECHO 09/2016Surgical HistoryAppendectomySurgical HistoryGallbladder RemovalSurgical HistoryOvarian Cyst RemovalSurgical HistoryCoccyx repairSurgical HistoryCataracts Bilateral EyesSurgical Historythyroidectomy Dr. Forbes10/14/2019Hospitalization History Childbirth [id number] HistorySee Above [employer] Other Evaluation noteNo InformationNort Tigerlily Other Evaluation note* Diagnosis Aortic valve stenosis, etiology of cardiac valve disease unspecified Essential hypertension Unspecified essential hypertension Hyperlipidemia, unspecified hyperlipidemia type Never smoked any substance documented in this encounter [facility] Work Phone: Evaluation note* Diagnosis Aortic valve stenosis, etiology of cardiac valve disease unspecified- Primary Essential hypertension Unspecified essential hypertension Hyperlipidemia, unspecified hyperlipidemia type Never smoked any substance BMI 26.0-26.9,adult Hypothyroidism, unspecified type documented in this encounter [facility] Work Phone: Evaluation note* Diagnosis Nonrheumatic aortic valve stenosis Aortic valve stenosis, etiology of cardiac valve disease unspecified documented in this encounter [facility] Work Phone: Evaluation note* Diagnosis 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- Primary BMI 26.0-26.9,adult documented in this encounter [facility] Work Phone: Evaluation note* Diagnosis Aortic valve stenosis, etiology of cardiac valve disease unspecified documented in this encounter [facility] Work Phone: Evaluation note* Diagnosis Nonrheumatic aortic valve stenosis- Primary 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 Hyperlipidemia, unspecified hyperlipidemia type PMR (polymyalgia rheumatica) (Multi) Polymyalgia rheumatica Hypothyroidism, unspecified type BMI 27.0-27.9,adult Never smoked any substance Overweight documented in this encounter [facility] Work Phone: Reason for visit Narrative* CV Imaging (Routine) - AuthorizedSpecialtyDiagnoses / ProceduresReferred By ContactReferred To ContactCardiology Diagnoses Aortic valve stenosis, etiology of cardiac valve disease unspecified Procedures Transthoracic Echo Complete FL ECHO TTHRC R-T 2D W/WOM-MODE COMPL SPEC&COLR D Michel Wolf MD [address] [address] Phone: tel: fax: Referral IDStatusReasonStart DateExpiration DateVisits RequestedVisits [id number] Perform Procedure [facility] Work Phone: Chief Complaint * LAVONNE [...] being tapered gradually * Michel Wolf MD, [facility] Family History No Family History Records [...] PMR (polymyalgia rhe umatica) (M35.3) Referral Organization [facility] Family Medicin e [place] Referring Provider First Name Suhas Referring Provider Last Name Tami Referring Provider Specialty Family Prac sukhjinder Referred Organization [facility] Referred Address [address] [place] [place], [place],[address] Referred Provider Specialty Rheumatology Referral Priority Routine [...] W/WOM-MODE COMPL SPEC&COLR D Michel Wolf MD [address] [place] [address] [address], [address] [address] Referral IDStatusReasonStart DateExpiration DateVisits RequestedVisits [id number] Review Perform Procedure /[id number] / ProceduresReferred By ContactReferred To ContactCardiology Diagnoses Aortic valve stenosis, etiology of cardiac valve disease unspecified Procedures Follow Up In Cardiology Michel Wolf MD [address] [facility] [address], [address] [address] Michel Wolf MD [address] [place] [address], [place] [address] Referral IDStatusReasonStart DateExpiration DateVisits RequestedVisits [id number]/11/20241/10/202511 Additional Source Comments REASON FOR VISIT (unrecogniz ed section and content) ReasonCommentsFollow-up9 month, echocardiogram resultsSpecialtyDiagnoses / ProceduresReferred By ContactReferred To ContactCardiology Diagnoses Aortic valve stenosis, etiology of cardiac valve disease unspecified Procedures Follow Up In Cardiology Michel Wolf MD [address] [place] [address] Phone: tel: fax: Michel Wolf MD [address] [place] [address], [place] [address] Phone: tel: fax: Referral IDStatusReasonStart DateExpiration DateVisits RequestedVisits [id number]/8/202411/[id number] CommentsFollow-dn3jYqqtrrit IDStatusReasonStart DateExpiration DateVisits RequestedVisits [id number]/11/20241/10/[id number] Diagnoses / ProceduresReferred By ContactReferred To ContactCardiology Diagnoses Nonrheumatic aortic valve stenosis Procedures Transthoracic Echo (TTE) Complete FL ECHO TRANSTHORC R-T 2D W/WO M-MODE REC F-UP/LMTD FL DOP ECHOCARD COLOR FLOW VELOCITY MAPPING FL DOP ECHOCARD PULSE WAVE W/SPECTRAL F-UP/LMTD STD Michel Wolf MD [address] [address], [place] [address] Referral IDStatusReasonStart DateExpiration DateVisits RequestedVisits [id number] Perform Procedure [id number]-jf ClearancePOC for spinal cord stimulator, scheduled 12.13.[address] Weston. INFORMATION SOURCE (unrecogn ized section and content) DATE CREATED AUTHOR 03/06/2022 [facility] DATE CREATED AUTHOR AUTHOR'S ORGANIZ ATION 12/25/2022 [facility] DATE CREATED AUTHOR AUTHOR'S ORGANIZ ATION 12/25/2022 [employer] DATE CREATED AUTHOR AUTHOR'S ORGANIZ ATION 03/03/2023 [facility] DATE CREATED AUTHOR AUTHOR'S ORGANIZ ATION 07/29/2024 [facility] DATE CREATED AUTHOR AUTHOR'S ORGANIZ ATION 12/25/2024 [facility] DATE CREATED AUTHOR AUTHOR'S ORGANIZ ATION 01/16/2025 [facility] DATE CREATED AUTHOR AUTHOR'S ORGANIZ ATION 04/21/2025 [facility] Care Teams (unrecognized sec tion and content) Team MemberRelationshipSpecialtyStart DateEnd Date Suhas Garrett DO PCP - General06/09/99Team MemberRelationshipSpecialtyStart DateEnd Date Suhas Garrett DO [address] [place] [address] [facility] - [facility]01/30/24Team MemberRelationshipSpecialtyStart DateEnd Date Suhas Garrett DO [address] [place] [address] [facility]01/30/24Team MemberRelationshipSpecialtyStart DateEnd Date Suhas Garrett DO [address] [place] [address] PCP - GeneralFamily Medicine01/30/24Team MemberRelationshipSpecialtyStart DateEnd Date Suhas Garrett, DO [address] [place] [address] PCP - GeneralFamily Medicine01/30/24Team MemberRelationshipSpecialtyStart DateEnd Date Suhas Garrett, DO [address] [place] [address] PCP - GeneralFamily Medicine01/30/24 FOR RECORDS PERTAINING [...] BE BASED ON THE PRIMARY CLINICAL RECORDS. [facility] [employer] provides no warranty or guarantee of the accuracy or completeness of information in this document.
--- NOTE | 2025-06-07 06:17 | XR_ITS ---
[place] [id number] Patient Name: LAVONNE VILLATORO MRN: [id number] date: 1935 Sex: F Assigned Patient Location: ER Current Patient Location: ED.MAIN Accession/Order Number: [id number] Exam Date: 06/07/2025 06:40 Report Date: 06/07/2025 07:45 At the request of: STEVENSON CARMICHAEL MD Procedure: XR chest 2V PA AND LATERAL CHEST: CLINICAL HISTORY: cough, congestion COMPARISON: CT angiogram 03/30/2025 FINDINGS: Enlarged cardiomediastinal silhouette. Prominent epicardial fat pads. minor perihilar congestion and interstitial edema. No focal airspace opacity effusion or pneumothorax. Multilevel osteopenia and degenerative changes of the thoracic spine. XR/XR chest 2V IMPRESSION: CARDIOMEGALY WITH MINOR INTERSTITIAL PULMONARY EDEMA. Impression dictated by: Simba Cardona M.D. 06/07/2025 7:45 AM Dictation Location: [place] [address] Electronically authenticated by: [id number] Date: 06/07/2025 07:45
[2025-06-07 06:18] LABS: Cast Seen? NONE SEEN #/LPF (NONE SEEN); Crystals Seen? None Seen #/HPF (None Seen); Urine Culture Indicated NO
[2025-06-07 07:21] VITALS: BP 180/70
== END 2025-06-07 07:57 | disposition home or self-care (01) ==
PROVIDERS: Emergency Provider Emergency Medicine; PCP Family Medicine
DX: J06.9 Acute upper respiratory infection, unspecified (principal); R05.9 Cough, unspecified; M35.3 Polymyalgia rheumatica
CPT/HCPCS: 71046; 81001; 87804; 87811; 99283